=== PATIENT | male | born 1965 | race Caucasian/White ===

== ENCOUNTER 2016-08-05 12:14 | Inpatient (IN) | payer OTHER ==
[~2016-08-05] VITALS: Ht 172.7 cm; Wt 83.0 kg
[~2016-08-05 12:14] MED LIST: FNTTP50 TD; GABA-112 PO; INSPMPHMLG; MESA1.2T PO; METO-157 PO; OMEP20CA9 PO; ONDA4TAB4 PO; OXYC-57 PO; SENN-104 PO; VALS40TA2 PO
[2016-08-05] MEDS ORDERED: HYDR8TAB29 PO (16:02)
[2016-08-05 16:15] VITALS: BMI 27.0
[2016-08-05] MEDS ORDERED: HYDROmorphone INJ 1 MG/ML SYR IV PRN (16:15)
[2016-08-05] MEDS ORDERED: GLUCOSE 10 TABS/TUBE PO PRN (16:15)
[2016-08-05] MEDS ORDERED: GLUCOSE 40% GEL 15 GM TUBE PO PRN (16:15)
[2016-08-05] MEDS ORDERED: GLUCAGON FOR INJ 1 MG VIAL SQ PRN (16:15)
[2016-08-05] MEDS ORDERED: DEXTROSE 50% 50 ML SYR IV PRN (16:15)
[2016-08-05 17:08] LABS: ALB/GLOB RATIO 0.8 (0.9-2); BUN/CREATININE RATIO 6.6 (10-20); CALCIUM 7.7 mg/dl (8.5-10.1); CREATININE 2.6 mg/dl (0.60-1.40); PHOSPHORUS 2.6 mg/dl (2.5-4.9); POTASSIUM 4.3 mmol/L (3.5-5.1)
[2016-08-05 17:13] LABS: HEMATOCRIT 25.8 % (42-52); MEAN CELL VOLUME 79.1 fL (80-100); MEAN CORPUSCULAR HEMOGLOBIN 28.2 pg (25-34); MEAN CORPUSCULAR HGB CONC 35.7 g/dl (32-36); MEAN PLATELET VOLUME 9.2 fL (7.4-10.4); PLATELET COUNT 99 K/uL (130-400); RED BLOOD COUNT 3.26 M/uL (4.7-6.1); WHITE BLOOD COUNT 1.91 K/uL (4.8-10.8)
[2016-08-05 17:14] LABS: BASO % 0.5 %; BASO ABS # 0.01 K/uL (0-0.2); COMPLETE YES; EOS % 3.1 %; LYMPH ABS # 1.05 K/uL (1.2-3.4); MONO % 8.9 %; NEUT % 32.5 %
[2016-08-05 17:15] LABS: LARGE PLATELETS 1+; PLT ESTIMATE DECREASED; TOXIC GRANULATION 1+
--- NOTE | 2016-08-05 17:19 | History and Physical ---
History & Physical Date & Time of Service: Aug 05, 2016 at 16:35 Chief Complaint: Intractable Nausea And Vomiting; Ivan Primary Care Physician: Bran Burgess M.D. History of Present Illness Source: patient This is a 50 y/o male with PMHx of Lung CA currently undergoing chemotherapy, Insulin-Dependent DM 2, diabetic polyneuropathy, gastroparesis s/p gastric stimulator, HTN and other problems as outlined below who presents from [facility] with intractable N/V for 1 week. Pt reports that one week ago he developed intractable N/V shortly after receiving his 2nd round of chemo (07/27). He was admitted to [facility] on 07/28 for his sxs and has been treated with scheduled doses of Zofran and Phenergan. Clinically, sxs have improved over the past week and patient reports only one episode of vomiting today however labs revealed a progressively worsening pancytopenia and increasing creatinine. Pt was diagnosed with Lung CA in Jan 2016. He underwent L sided lobectomy @ [facility] in May 2016. Pt is currently undergoing chemotherapy with Cisplatin /Pemetrexed. The plan is to complete 4 rounds of chemo. He follows with oncology , Dr. Amanda. Pt has a history of gastroparesis with gastric stimulator however he states that these sxs are more severe than his usual gastroparesis sxs. He experienced similar sxs after his first round of chemo and was admitted to [facility] at that time. Patient is also complaining of severe pain. He describes the pain as severe sharp/shooting pain that extends from his toes to his neck. Patient has a history of chronic pain secondary to diabetic neuropathy. He is on fentanyl patch and Dilaudid at home. He follows with pain mgmt. Pt denies fever/chills, diaphoresis, chest pain, palpitations, SOB, wheezing, bowel or bladder issues, LE edema, lightheadedness/dizziness. Past Medical/Surgical History Medical Problems: (1) Diabetes mellitus, type II Status: Chronic (2) Diabetic polyneuropathy Status: Chronic (3) Gastroparesis Permanent Comment: s/p gastric stimulator Status: Chronic (4) HTN (hypertension) Status: Chronic (5) Lung cancer Permanent Comment: dx 01/2016; s/p L side lobectomy; currently undergoing chemo Status: Chronic Surgical Problems: (1) History of cholecystectomy Status: Resolved (2) History of tonsillectomy and adenoidectomy Status: Resolved (3) Hx of total knee arthroplasty Status: Resolved (4) S/P lobectomy of lung Permanent Comment: La carrera @ [facility] [place] 05/25/16 Status: Resolved Social History Smoking Status: Former Smoker (2 pack year history) Smokeless Tobacco Use: Yes (1 can every 3 days since age 8 ) Drug Use: none Marital Status: Housing status: lives with significant other Multi-Drug Resistant Organisms History of MDRO: No Allergies Coded Allergies: BEE STING (Verified Allergy, Mild, SWELLING AT SITE, SOB, 04/16/13) Penicillins (Verified Allergy, Unknown, "SINCE ", 04/16/13) Home Medications Scheduled Acetaminophen (Tylenol), 2 TAB PO TID Aspirin (Aspirin Ec), 81 MG PO QAM Dexamethasone (Decadron), 4 TAB PO BID Epinephrine (Epipen), 0.3 MG IM UD Fentanyl (Duragesic), 100 MCG TD Q48hr Gabapentin (Neurontin), 600 MG PO TID Insulin Glargine (Lantus), 25 SC QPM Multiple Vitamin (Multivitamins), 1 TAB PO QAM Promethazine Hcl (Phenergan), 2 TABS PO Q4H Scheduled PRN Hydromorphone Hcl (Dilaudid), 1 TAB PO TID PRN for Pain Ondansetron Tab (Zofran), 8 MG PO Q8 PRN for Nausea Miscellaneous Medications Insulin Human Lispro (Humalog) Review of Systems Constitutional: + fatigue, + weakness, No chills, No fever, No sweats Eyes: No worsening of vision ENT: No hearing loss Respiratory: No cough, No shortness of breath Cardiovascular: No chest pain, No claudication, No edema Abdomen: + nausea, + pain, + vomiting, No GI bleeding, No constipation, No diarrhea Musculoskeletal: No calf pain, No swelling Genitourinary - Male: No dysuria Neurologic: + weakness Psychiatric: No depression symptoms Endocrine: + fatigue Hematologic / Lymphatic: No abnormal bleeding/bruising Integumentary: No new/changing skin lesions Physical Exam General Appearance: WD/WN, no apparent distress, + pertinent finding (Pt is sitting on edge of bed with at bedside) Head: normocephalic, atraumatic Eyes: normal inspection ENT: hearing grossly normal Neck: supple Respiratory/Chest: chest non-tender, lungs clear, normal breath sounds, no respiratory distress Cardiovascular: regular rate, rhythm, no edema, no murmur Abdomen/GI: normal bowel sounds, non tender, soft Back: normal inspection Extremities/Musculoskelatal: normal inspection, no calf tenderness, no pedal edema Neurologic/Psych: alert, normal mood/affect, oriented x 3 Skin: normal color, warm/dry Diagnostics Laboratory Results Results Past 24 Hours Test 08/05/16 16:12 Range/Units Impression Assessment and Plan INTRACTABLE N/V SECONDARY TO CHEMOTHERAPY H/O GASTROPARESIS S/P GASTRIC STIMULATOR -pt is presented as a transfer from [facility] with chemo-induced intractable N/V; last chemo 07/26 -vitals are stable -obtain CBC, CMP, Mag, Phos -EKG and CXR per routine -start IVF, Phenergan and Emend -consult GI, Dr. Chaves -monitor PANCYTOPENIA -likely chemo-induced -avoid pharmacologic anticoagulation secondary to plt count 99 -neutropenic precautions IVAN -creatinine elevated at 2.6 (baseline 1.2-1.5) -start IVF -monitor with daily prp and avoid nephrotoxic agents when able HYPOMAGNESIA -Mag 1.0; replete -monitor daily DIABETIC POLYNEUROPATHY -cont gabapentin, fentanyl patch and IV Dilaudid PRN -consult pain mgmt LUNG CA S/P L SIDED LOBECTOMY -lobectomy 05/25/16 @ [facility] -currently undergoing chemo with Cisplatin/ pemetrexed (last chemo 07/26) -follows with oncology, Dr. Amanda INSULIN-DEPENDENT DM 2 -A1C 13.2 11/2015; recheck in AM -hold Lantus and NovoLog -start ISS -monitor BSG AC HS HTN -no antihypertensive medications DVT PROPHYLAXIS -SCDs only in setting of thrombocytopenia monitor Plt CODE STATUS -FULL CODE status DISPO Pt seen in collaboration with Dr. Car. Please see his addendum for further details. Thanks! -of note: patient will be followed by Dr. Saenz starting tomorrow AM. ATTENDING ADDENDUM care coordinated with CHARLI Mcfarland please refer to her notes for full details, I agree with her notes called by RN as patient was lethargic, while reviewing his chart, code purple called per RN, patient was noted to be progressively drowsy after receiving Emend, Phenergan, Dilaudid he was then found to be "slumped on the bed", snoring, pulse ox 50%, code purple called when i arrived, patient was awake but drowsy, oriented x 3, answering questions appropriately easily drifts back to sleep denies headache, nausea, chest pain, dyspnea, cough, or pain states he just feels tired,"trying to catch up" on sleep no other symptoms VS noted and reviewed oriented x 3 drowsy, not in distress, speaks in sentences with no effort nor accessory muscle use normal rate, regular rhythm, no murmurs clear breath sounds bilaterally non distended, soft, nontender no bipedal edema, erythema, warmth no neuro deficits wbc 1.2 Plt 99 crea 2.6 CXR: possible right lower lobe atelectasis vs. inflammation CT head: no acute process ABG: ph 7.45, co2 45 ASSESSMENT/PLAN> 50 year old male with Lung CA s/p Lobectomy 05/2016, on Chemo, Chronic Pain Secondary to Neuropathy, transferred from [facility] for intractable nausea/vomiting. INTRACTABLE NAUSEA/VOMITING likely from Chemotherapy history of Gastroparesis, Chronic Narcotic use for Neuropathy was on scheduled Phenergan, Zofran while in [place] with minimal relief as per family trial of Emend GI consulted ALTERED MENTAL STATUS HYPOXIA likely Hypoventilation likely from Narcotic Use in the setting of Acute Renal Failure on CKD 3 ABG, CT head unrevealing CXR questionable right lower lobe pneumonia, repeat CXR 2 views when able - did not give Narcan as patient has been on narcotics for years on PO Dilaudid at home, IV Dilaudid and Fentanyl patch while at [place] HOLD Fentanyl patch, IV Dilaudid, any narcotics tonight monitor in PCU ACUTE RENAL FAILURE ON CKD 3 likely Pre renal from Poor oral intake, Emesis hold narcotics for now renally dose medications - IV fluids monitor crea PANCYTOPENIA - from Chemotherapy - no signs of bleeding, infection at this time - Dr. Amanda consulted Neutropenic precautions other diagnoses and plan of care as per CHARLI Mcfarland's notes Antonino Car MD Advanced Directives Existing Living Will: No Existing Power of Automotive Internet Sales Manager: No VTE Prophylaxis VTE Risk Assessment Done? Y/N: Yes Risk Level: High
[2016-08-05 17:21] LABS: PROTHROMBIN TIME (PATIENT) 10.5 SECONDS (9.0-12.0)
[2016-08-05] MEDS ORDERED: FOSAPREPITANT DIMEGLUMINE INJ 115 MG in SODIUM CHLORIDE 0.9% 100ML 111.2 ML IV ONE (17:30)
[2016-08-05] MEDS: SODIUM CHLORIDE 0.9% 1000ML 1,000 ML IV SCH (17:44)
[2016-08-05] MEDS ORDERED: MAGNESIUM SULFATE 1GM / D5W 1 GM in PREMIXED IN D5W 100 ML IV SCH (17:45)
[2016-08-05] MEDS ORDERED: PROMETHAZINE HCL INJ 25 MG in SODIUM CHLORIDE 0.9% 50ML 50 ML IV SCH (18:00)
[2016-08-05] MEDS ORDERED: INSULIN ASPART 100 UNITS/ML 3 ML PEN SC ONE (18:15)
[2016-08-05 19:12] VITALS: BP 148/88; PULSE 95; TEMP 36.3; O2SAT 92
[2016-08-05 19:56] LABS: ARTERIAL BLD GAS O2 SATURATION 99.4 % (90-95); ARTERIAL BLOOD GAS BASE EXCESS 5.8 mEq/L (-9-1.8); ARTERIAL BLOOD GAS HCO3 30 mmol/L (19-24); ARTERIAL BLOOD GAS PO2 323 mm/Hg (80-95); ARTERIAL BLOOD GAS pH 7.45 (7.35-7.45)
[2016-08-05 19:57] LABS: ALLEN TEST POS (POS); O2 ADMINISTRATION 15 L
[2016-08-05] MEDS ORDERED: GABAPENTIN 600 MG TAB PO SCH (20:00)
--- NOTE | 2016-08-05 20:08 | DIAGNOSTIC IMAGING REPORT ---
CHEST ONE VIEW PORTABLE CLINICAL HISTORY: hypoxia COMPARISON STUDY: No previous studies for comparison. FINDINGS: The heart is normal in size given the AP technique. There is mild central vascular prominence without evidence of overt edema. There are increased markings the right medial lung base, likely atelectatic although an inflammatory process could appear similar[ IMPRESSION: 1. Central vascular prominence without evidence of overt edema 2. Increased markings at the right medial lung base likely atelectatic although an inflammatory process could appear similar Electronically signed by: Bruce Salamanca M.D. 08/05/2016 8:07 PM Dictated Date/Time: 08/05/2016 8:06 PM
[2016-08-05 20:24] LABS: BUN/CREATININE RATIO 6.9 (10-20); CALCIUM 7.6 mg/dl (8.5-10.1); CREATININE 2.6 mg/dl (0.60-1.40); MAGNESIUM 1.5 mg/dl (1.8-2.4); POTASSIUM 4.3 mmol/L (3.5-5.1)
--- NOTE | 2016-08-05 20:34 | DIAGNOSTIC IMAGING REPORT ---
CT HEAD WITHOUT CONTRAST (CT) CLINICAL HISTORY: Stroke like symptoms. Hypoxia. COMPARISON STUDY: 08/06/2013 TECHNIQUE: Axial CT of the brain is performed from the vertex to the skull base. IV contrast was not administered for this examination. CT DOSE: 537.48 mGy.cm FINDINGS: No intra or extra-axial mass lesions are visualized. There is no CT evidence of acute cortical infarction. There is no evidence of midline shift. There is no acute hemorrhage. No calvarial fractures are visualized. There is no evidence of pathologic ventricular dilatation. There is a stable small focus of mucosal thickening within the right sphenoid. IMPRESSION: Normal noncontrast head CT for age. Electronically signed by: Bruce Salamanca M.D. 08/05/2016 8:33 PM Dictated Date/Time: 08/05/2016 8:31 PM
[2016-08-05 21:00] VITALS: BP 148/93; PULSE 85; TEMP 36.5; O2SAT 100
[2016-08-05] MEDS: GABAPENTIN 600 MG TAB PO SCH ×2 (21:00→23:09)
[2016-08-05] MEDS: INSULIN ASPART 100 UNITS/ML 3 ML PEN SC SCH (23:13)
[2016-08-05 23:49] VITALS: BP 184/101; PULSE 94; TEMP 36.4; O2SAT 97
[2016-08-06] VITALS (10 sets, daily range): BP systolic 143–179; BP diastolic 82–110; PULSE 82–97; TEMP 36.5–37.1; O2SAT 88–100; Ht 172.7 cm; Wt 83.0 kg
[2016-08-06] MEDS ORDERED: CHECK FENTANYL PATCH PLACEMENT SCH
[2016-08-06] MEDS: PROMETHAZINE HCL INJ 25 MG in SODIUM CHLORIDE 0.9% 50ML 50 ML IV PRN (01:19)
[2016-08-06] MEDS ORDERED: HYDROmorphone INJ 1 MG/ML SYR IV ONE (01:27)
[2016-08-06] MEDS ORDERED: FENTANYL 100 MCG/HR TDSY TD SCH ×2 (01:30→13:00)
[2016-08-06] MEDS: SODIUM CHLORIDE 0.9% 1000ML 1,000 ML IV SCH ×3 (02:09→17:11)
[2016-08-06] MEDS: INSULIN ASPART 100 UNITS/ML 3 ML PEN SC SCH ×4 (07:00→21:31)
[2016-08-06 07:21] LABS: HEMATOCRIT 23.7 % (42-52); MEAN CELL VOLUME 81.4 fL (80-100); MEAN CORPUSCULAR HEMOGLOBIN 28.5 pg (25-34); RED BLOOD COUNT 2.91 M/uL (4.7-6.1); WHITE BLOOD COUNT 1.98 K/uL (4.8-10.8)
[2016-08-06 07:27] LABS: MEAN PLATELET VOLUME 9.5 fL (7.4-10.4); PLATELET COUNT 86 K/uL (130-400)
[2016-08-06 07:51] LABS: ESTIMATED AVERAGE GLUCOSE 252 mg/dl; HA1C FLAG Normal (Normal)
[2016-08-06 07:55] LABS: CALCIUM 7.6 mg/dl (8.5-10.1); CREATININE 2.3 mg/dl (0.60-1.40); MAGNESIUM 1.4 mg/dl (1.8-2.4)
[2016-08-06 07:56] LABS: PHOSPHORUS 3.2 mg/dl (2.5-4.9)
[2016-08-06] MEDS: CHECK FENTANYL PATCH PLACEMENT SCH ×2 (08:00→16:00)
[2016-08-06] MEDS ORDERED: ASPIRIN 81 MG ECTAB PO SCH (08:00)
--- NOTE | 2016-08-06 08:23 | Gastrointestinal Consultation ---
Gastrointestinal Consultation Date of Consultation: Aug 06, 2016 Consulting Physician: Anastacio Reason for Consultation: N/V, gastroparesis History of Present Illness Patient is a 50 year old male w/ PMH significant for lung CA (round 2/ last dose of Cisplatin/Pemetrexed on 07/27) DMT2 w/ polyneuropathy, HTN, gastroparesis (s/p gastric stimulator) and chronic pain who is a transfer from [facility] for ongoing management, GI is consulted for N/V and gastroparesis. Pt was seen and examined this morning. He has been getting Zofran and Phenergan on a timed schedule for the past week since he has been in [place]. This has been controlling his nausea and vomiting OK. Last episode of vomiting was yesterday. Nausea persists and increases when his pain increases. Currently with head to toe pain 10/10. Nausea has been acutely worse today related to d/c of fentanyl patch. Reports this is different than nausea and vomiting secondary to his gastroparesis. First dose of Emend used yesterday , feels as if his nausea is better controlled with this. Main concern today is his pain and his exhaustion. Is not able to get any sleep because of his pain. Has used Reglan in the past but has not needed it since he had a stimulator places. Is moving his bowels without any concern. Denies any abdominal pain, black/bloody stools or emesis. EGD 01/26/15: LA Grade B reflux esophagitis. Gastritis. Normal examined duodenum. EGD 11/24/14: LA Grade C reflux esophagitis. A large amount of residue in the stomach.No specimens collected. EGD 06/17/13: Normal upper third of esophagus and middle third of esophagus. LA Grade A reflux esophagitis. Normal cardia, gastric fundus, gastric body and incisura. Gastritis. Normal duodenal bulb. Normal 2nd part of the duodenum. EUS 06/17/13: Normal ampulla. 4 mm common bile duct. Multiple stones and sludge was visualized endosonographically in the gallbladder.Normal appearing liver.Normal appearing pancreas. Endosonographic images of the left adrenal gland were unremarkable. EGD 04/21/13: esophagitis Colon 04/22/13: stool in colon despite two day prep, 2 polyps, otherwise unremarkable Social History Smoking Status: Former Smoker (2 pack year history) Drug Use: none Marital Status: Allergies Coded Allergies: BEE STING (Verified Allergy, Mild, SWELLING AT SITE, SOB, 04/16/13) Penicillins (Verified Allergy, Unknown, "SINCE ", 04/16/13) Current Medications Home Meds and Scripts Medications Dose Route/Sig Max Daily Dose Days Date Category Dose Instructions Decadron (Dexamethasone) 4 Mg Tab 4 Tab PO BID 2 08/05/16 Reported Only on day of and day after chemo Neurontin (Gabapentin) 300 Mg Cap 600 Mg PO TID 08/05/16 Reported Aspirin Ec (Aspirin) 81 Mg Tab 81 Mg PO QAM 08/05/16 Reported Lantus (Insulin Glargine) 100 Unit/Ml Inj 25 SC QPM 08/05/16 Reported Dilaudid (Hydromorphone Hcl) 8 Mg Tab 1 Tab PO TID PRN 30 08/05/16 Reported Tylenol (Acetaminophen) 500 Mg Tab 2 Tab PO TID 2 08/05/16 Reported Phenergan (Promethazine Hcl) 12.5 Mg Tab 2 Tabs PO Q4H 7 08/05/16 Reported Humalog (Insulin Human Lispro) 1 Ea Inj 08/05/16 Reported 1 unit for every 10 greater than 120 Epipen (Epinephrine) 0.3 Mg/0.3 Ml Inj 0.3 Mg IM UD 04/16/13 Reported Multivitamins (Multiple Vitamin) 1 Cap Cap 1 Tab PO QAM 04/16/13 Reported Duragesic (Fentanyl) 50 Mcg Tdsy 100 Mcg TD Q48HR 04/16/13 Reported LAST PLACED ON 08/04/16 at 1300 Zofran (Ondansetron HCl) 4 Mg Tab 8 Mg PO Q8 PRN 04/16/13 Reported Review of Systems Constitutional: No chills, No fever Respiratory: No shortness of breath Cardiac: No chest pain Abdomen: + nausea, No GI bleeding, No constipation, No diarrhea, No pain, No vomiting Physical Exam Date Time Temp Pulse Resp B/P Pulse Ox O2 Delivery O2 Flow Rate FiO2 08/06/16 07:50 100 Nasal Cannula 3.0 08/06/16 07:45 36.6 83 16 150/82 88 Nasal Cannula 3.0 08/06/16 04:00 Nasal Cannula 2.0 08/06/16 03:29 36.5 82 18 143/87 100 Nasal Cannula 2.0 08/05/16 23:59 Nasal Cannula 2.0 08/05/16 23:49 36.4 94 20 184/101 97 Nasal Cannula 5.0 08/05/16 21:00 36.5 85 20 148/93 100 Mask 0.0 08/05/16 20:00 Non-Rebreather 15.0 08/05/16 19:12 36.3 95 20 148/88 92 Room Air General Appearance: + moderate distress (patient appears very uncomfortable in bed, occasional groans of pain with any body movement) Eyes: PERRL ENT: hearing grossly normal Neck: supple, trachea midline Respiratory/Chest: lungs clear, no respiratory distress, no accessory muscle use Cardiovascular: regular rate, rhythm, no gallop, no JVD Abdomen: normal bowel sounds, soft, no organomegaly, no pulsatile mass Neurologic/Psych: alert, normal mood/affect, oriented x 3 Skin: normal color, no jaundice Laboratory Results Last 24 Hours Test 08/05/16 16:31 08/05/16 16:40 08/05/16 19:45 08/05/16 19:46 Bedside Glucose 158 mg/dl 195 mg/dl White Blood Count 1.91 K/uL Red Blood Count 3.26 M/uL Hemoglobin 9.2 g/dL Hematocrit 25.8 % Mean Corpuscular Volume 79.1 fL Mean Corpuscular Hemoglobin 28.2 pg Mean Corpuscular Hemoglobin Concent 35.7 g/dl Platelet Count 99 K/uL Mean Platelet Volume 9.2 fL Neutrophils (%) (Auto) 32.5 % Lymphocytes (%) (Auto) 55.0 % Monocytes (%) (Auto) 8.9 % Eosinophils (%) (Auto) 3.1 % Basophils (%) (Auto) 0.5 % Neutrophils # (Auto) 0.62 K/uL Lymphocytes # (Auto) 1.05 K/uL Monocytes # (Auto) 0.17 K/uL Eosinophils # (Auto) 0.06 K/uL Basophils # (Auto) 0.01 K/uL RDW Standard Deviation 40.3 fL RDW Coefficient of Variation 13.9 % Immature Granulocyte % (Auto) 0.0 % Immature Granulocyte # (Auto) 0.00 K/uL Toxic Granulation 1+ Platelet Estimate DECREASED Large Platelets 1+ Prothrombin Time 10.5 SECONDS Prothromb Time International Ratio 1.0 Activated Partial Thromboplast Time 26.6 SECONDS Partial Thromboplastin Ratio 1.0 Sodium Level 136 mmol/L 137 mmol/L Potassium Level 4.3 mmol/L 4.3 mmol/L Chloride Level 98 mmol/L 100 mmol/L Carbon Dioxide Level 32 mmol/L 30 mmol/L Anion Gap 6.0 mmol/L 7.0 mmol/L Blood Urea Nitrogen 17 mg/dl 18 mg/dl Creatinine 2.60 mg/dl 2.60 mg/dl Est Creatinine Clear Calc Drug Dose 32.9 ml/min 32.9 ml/min Estimated GFR () 31.9 31.9 Estimated GFR (Non- 27.5 27.5 BUN/Creatinine Ratio 6.6 6.9 Random Glucose 162 mg/dl 193 mg/dl Calcium Level 7.7 mg/dl 7.6 mg/dl Phosphorus Level 2.6 mg/dl Magnesium Level 1.0 mg/dl 1.5 mg/dl Total Bilirubin 0.2 mg/dl Aspartate Amino Transf (AST/SGOT) 18 U/L Alanine Aminotransferase (ALT/SGPT) 14 U/L Alkaline Phosphatase 81 U/L Total Protein 6.8 gm/dl Albumin 3.1 gm/dl Globulin 3.7 gm/dl Albumin/Globulin Ratio 0.8 Arterial Blood pH 7.45 Arterial Blood Partial Pressure CO2 45 mmHg Arterial Blood Partial Pressure O2 323 mm/Hg Arterial Blood HCO3 30 mmol/L Arterial Blood Oxygen Saturation 99.4 % Arterial Blood Base Excess 5.8 mEq/L Arterial Blood Gas Delivery 15 L Antonino Test POS Test 08/06/16 06:18 08/06/16 06:48 Bedside Glucose 137 mg/dl White Blood Count 1.98 K/uL Red Blood Count 2.91 M/uL Hemoglobin 8.3 g/dL Hematocrit 23.7 % Mean Corpuscular Volume 81.4 fL Mean Corpuscular Hemoglobin 28.5 pg Mean Corpuscular Hemoglobin Concent 35.0 g/dl RDW Standard Deviation 42.0 fL RDW Coefficient of Variation 14.0 % Platelet Count 86 K/uL Mean Platelet Volume 9.5 fL Sodium Level 139 mmol/L Potassium Level 4.0 mmol/L Chloride Level 101 mmol/L Carbon Dioxide Level 32 mmol/L Anion Gap 6.0 mmol/L Blood Urea Nitrogen 16 mg/dl Creatinine 2.30 mg/dl Est Creatinine Clear Calc Drug Dose 40.2 ml/min Estimated GFR () 37.0 Estimated GFR (Non- 31.9 BUN/Creatinine Ratio 7.0 Random Glucose 135 mg/dl Estimated Average Glucose 252 mg/dl Hemoglobin A1c 10.4 % Calcium Level 7.6 mg/dl Phosphorus Level 3.2 mg/dl Magnesium Level 1.4 mg/dl Impression Patient is a 50 year old male with persistent nausea and vomiting following chemotherapy on 07/27 (Cisplatin/Pemetrexed). No coffee ground emesis, or hematemesis. Feels well managed on Zofran, Phenergan and emend. N/V likely secondary to chemotherapy. Plan IVF for hydration Pain management Agree with trial of emend Continue Zofran and Phenergan Pt would not like to try Reglan. Advise patient has emend for upcoming chemotherapy dates. 125 mg PO on day 1 80 mg PO day 2 and day 3 GI to sign off. Please call with any questions. I saw and evaluated the patient. He has a history of gastroparesis s/p Gastric pacemaker and was transferred due to persistent nausea post- chemotherapy. After a dose of Emend he notes feeling better and tolerated PO today. PE: nad, no scleral icterus Impression: patient with gastropersis presenting with n/v likely related to chemotherapy. Recomendations May give emend if needed again during hospital stay Would suggest Emend PO as OP with chemotherapy: 125 mg prior to chemotherapy on day 1, followed by 80 mg once daily on days 2 and 3 (in combination with a 5-HT3 antagonist antiemetic on day 1 and dexamethasone on days 1 to 4 or days 1 to 3) Please call with questions (will sign off)
[2016-08-06] MEDS: HYDROmorphone INJ 1 MG/ML SYR IV PRN ×6 (08:41→23:23)
[2016-08-06] MEDS: DOCUSATE SODIUM/SENNA 50/8.6MG TAB PO SCH (08:43)
[2016-08-06] MEDS: MULTIVITAMIN TAB PO SCH (08:43)
[2016-08-06] MEDS: ONDANSETRON INJ 2 MG/ML 2 ML VIAL IV PRN (08:58)
[2016-08-06] MEDS: GABAPENTIN 600 MG TAB PO SCH ×3 (10:21→21:26)
[2016-08-06] MEDS: MAGNESIUM SULFATE 1GM / D5W 1 GM in PREMIXED IN D5W 100 ML IV SCH ×3 (10:22→13:31)
[2016-08-06] MEDS: MAGNESIUM CHLORIDE 64MG DELAYED REL TAB PO SCH ×2 (10:22→21:27)
--- NOTE | 2016-08-06 11:59 | CONSULTATION REPORT ---
DATE OF CONSULTATION: 08/06/2016 INPATIENT CONSULTATION REPORT Plan of care discussed with Dr. Idalia Hernandez. CHIEF COMPLAINT: Intractable nausea and vomiting and intractable pain. HISTORY OF PRESENT ILLNESS: Mr. Pat is a 50-year-old white male with a past medical history of lung cancer who was transferred from [facility] yesterday for intractable nausea and vomiting over the past 1 week. The patient started his chemotherapy approximately 2 weeks ago, directed at his lung cancer with cisplatin/ pemetrexed. The patient reports a chronic history of pain affecting his entire body from his neck to his toes, which has previously been diagnosed with a polyneuropathy in the setting of chronic diabetes mellitus of greater than 17 years. There is evidence of poorly controlled diabetes mellitus, upon review of his medical record with a hemoglobin A1c of greater than 13 in 2016. He reported prior history of implantation of an intrathecal pump by Dr. Lott in [facility] which was subsequently removed due to an infection. He reports this occurred approximately 3 years ago. The patient has most recently been followed by pain clinic in the [facility] on fentanyl 75 mcg q. 48 hours as well as hydromorphone for breakthrough pain. The patient reported an evaluation at [facility] in [place] after a left-sided lobectomy in May lead to titration of his fentanyl patch to 100 mcg dosing, which he felt was more efficacious at pain control. His pain doctor apparently disagreed and reverted him back to his chronic 75 mcg dosing, prior to this admission. The patient indicates that his pain is significant at this time as all his analgesic regimen was discontinued last evening during this inpatient admission due to sedation and poor responsiveness and a pulse ox of 50%. He denies any obvious evidence of withdrawal at this time, specifically denying diarrhea, anxiety or excessive sweating. Vital signs have been relatively stable over the past 8 hours as well. The patient describes the pain as burning and stabbing in characteristic involving his entire trunk, upper extremities and lower extremities in nondermatomal patterns. He has no further constitutional complaints at this time. PAST MEDICAL HISTORY: 1. Diabetes mellitus - type 2. 2. Diabetic polyneuropathy. 3. Chronic pain secondary to above. 4. Chronic opiate dependency. 5. History of gastroparesis with implantation of his gastric stimulator. 6. Hypertension. 7. Lung cancer status post left-sided lobectomy, currently undergoing chemotherapy. PAST SURGICAL HISTORY: 1. Cholecystectomy. 2. Tonsillectomy. 3. Adenoidectomy. 4. TKA. 5. Status post left-sided lobectomy - 05/25/2016. 6. History of intrathecal pump implantation and explantation. FAMILY HISTORY: Noncontributory. WORK HISTORY: The patient is disabled. SOCIAL HISTORY: The patient is , currently living with significant other. He is a former smoker, has a 2-pack-year history. He does continue to utilize 1 can of smokeless tobacco every 3 days, which he has been doing since approximately the age of 8. He denies illicit drug use. ALLERGIES: BEE STINGS, PENICILLIN. CURRENT MEDICATIONS: Reviewed extensively in the EMR. REVIEW OF SYSTEMS: The patient denies complaints related to cardiac, pulmonary, GI, , endocrine, neurologic, hepatic, renal, ENT, dermatologic, musculoskeletal as described above in the HPI. PHYSICAL EXAMINATION: VITAL SIGNS: Temperature 36.6 degrees Celsius, pulse 83, respirations 16, BP 150/82, pulse oximetry 88% on 3 liters of oxygen via nasal cannula. GENERAL: Mr. Alfonso buckner is sitting quietly in exam room, intermittently moaning secondary to pain complaint. Speech and thought process are appropriate. Mood and affect are flat. Cognition is intact. EXTREMITIES: The patient reports lack of sensation to sharp and dull in his entire body including his upper extremities, his trunk as well as his lower extremities. He denies dysesthesias, hyperesthesia, allodynia, or hyperpathic response to palpation. Range of motion is without limitation of his extremities and strength appears to be 5/5 and equal distally. BACK AND SPINE: He has well-healed midline surgical incision in the thoracolumbar junction at the site of spinal cord stimulator implantation. He also has well-healed surgical incision in the left posterolateral chest wall status post his lobectomy. NEUROLOGIC: Cranial nerves were grossly intact. Ambulatory function was not witnessed. ASSESSMENT: 1. Chronic pain secondary to diabetic polyneuropathy. 2. Intractable nausea/vomiting secondary to chemotherapy. 3. History of lung cancer status post left lobectomy, currently on chemotherapy, last dose 07/26/2016. 4. Pancytopenia. 5. History of gastroparesis, status post gastric stimulator implantation. TREATMENT AND RECOMMENDATIONS: 1. Recommend resuming his chronic opiate therapy with fentanyl 100 mcg, initially at q. 72 hours. 2. Maintain hydromorphone 1 mg q. 2 hours IV p.r.n. for breakthrough pain to assess usage. Could briefly consider utilization of RADIOLOGIC TECHNOLOGY INSTRUCTOR hydromorphone. 3. Alternative options would be to consider a trial of Nucynta for p.r.n. breakthrough pain, which may be more efficacious at his neuropathic pain complaints versus oral hydromorphone. Determination will be made in the next 24 hours. 4. Will resume gabapentin at 600 mg t.i.d. Consider progressing dose. 5. Addition of alternative antineuropathics could be considered in the outpatient setting. 6. We will continue to follow during hospitalization. Thank you for the consultation. MIRTHAD
[2016-08-06] MEDS ORDERED: FENTANYL PATCH REMOVE & WASTE SCH (12:59)
--- NOTE | 2016-08-06 13:18 | Medical Consult ---
Consultation Date of Consultation: Aug 06, 2016. Attending Physician: Antonino Car MD Reason for Consultation: Pancytopenia in setting of treatment of NSCLC History of Present Illness Jeff Hamilton is a 50 year old male who underwent surgery for a left upper lobe lung cancer at [facility], [place], [place] in May 2016. He was then seen in Multidisciplinary Thoracic Oncology Clinic there. Lung nodule was found incidentally on PAT for gastric stimulator for gastroparesis and the following work up proceeded as detailed: CT scan 01/10/2016 revealed two lung nodules in the lingula of the left upper lobe. 01/19/[address]: Low level metabolic activity within two lingular nodules; interval development of right upper lobe ground-glass opacities; low level activity consistent with infectious/inflammatory process Follow up CT scan from 04/09/2016: little to no change in the size of the two lingular lung nodules; largest is 1.4 cm ; smaller is 1 cm ; resolution of ground glass opacities. He underwent a robotic SHAWN lobectomy on 05/25/2016. Final pathology: NSCLC SHAWN - - adenocarcinoma, poorly differentiated, TNM pT1b, pN2, M0. Tumor 2.2 cm, 3/8 LNs + mets. Dr. Amanda recommended 4 cycles of adjuvant chemotherapy with cisplatin/ pemetrexed, sequential RT was not recommended by RO; he completed cycle 2 on . A day after 2nd cycle of chemotherapy, he developed intractable N/V and was admitted to [facility] on 07/28 where was treated with scheduled doses of Zofran and Phenergan. He has improved over the past week. He only had one episode of vomiting yesterday, but labs reveal worsening pancytopenia and increasing creatinine. After admission yesterday, he had an episode of respiratory depression after Emend, Phenergan and Zofran were administered for his symptoms. No Narcan was given; patient's lethargy resolved after withdrawing fentanyl and Dilaudid yesterday. Additional history obtained from patient at bedside. The patient reports yesterday that he received 2 IV 50 milligram doses of fentanyl on his transfer via ambulance from [facility] to [facility]. Since his episode of lethargy a with respiratory depression and oxygen desaturation, he has been able to restart his narcotic regimen. He states that his "generalized" Neuropathy pain of the arms, legs and trunk is typically 3/ 10. since his last chemotherapy, his neuropathy has been 4-6 -8 /10. 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 He reports fatigue ; he did sleep well last evening with the week prior in [facility] only getting "2-3 hours sleep total." He reports very minimal nausea and has not had vomiting since yesterday around 10 a.m.. His bowels remain regular and he has not had hematochezia or melena. He denies any dysuria or hematuria. He has not had consistent headache or dizziness. Social History Smoking Status: Former Smoker (2 pack year history) Smokeless Tobacco Use: Yes (1 can every 3 days since age 8 ) Drug Use: none Marital Status: Allergies Coded Allergies: BEE STING (Verified Allergy, Mild, SWELLING AT SITE, SOB, 04/16/13) Penicillins (Verified Allergy, Unknown, "SINCE ", 04/16/13) Current Inpatient Medications Current Inpatient Medications Medications (Trade) Dose Ordered Sig/Cal Route Start Time Stop Time Status Last Admin Dose Admin Acetaminophen (Tylenol Tab) 650 mg Q4H PRN PO 08/05/16 16:15 09/04/16 16:14 Ondansetron HCl (Zofran Inj) 4 mg Q6H PRN IV 08/05/16 16:15 09/04/16 16:14 Insulin Aspart (novoLOG ASPART) SLIDING SCALE If C... ACHS SC 08/05/16 21:00 09/04/16 20:59 08/05/16 23:13 1 UNITS Glucose (Glucose 40% Gel) 15-30 GRAMS 15 GRAMS... UD PRN PO 08/05/16 16:15 09/04/16 16:14 Glucose (Glucose Chew Tab) 4-8 Tablets 4 Tabl... UD PRN PO 08/05/16 16:15 09/04/16 16:14 Dextrose (Dextrose 50% 50ML Syringe) 25-50ML OF 50% DW IV FOR... UD PRN IV 08/05/16 16:15 09/04/16 16:14 Glucagon (Glucagon Inj) 1 mg UD PRN SQ 08/05/16 16:15 09/04/16 16:14 Multivitamins (Multivitamin Tab) 1 tab QAM PO 08/06/16 08:00 09/05/16 07:59 Senna/Docusate Sodium 1 tab 1 tab QAM PO 08/06/16 08:00 09/05/16 07:59 Sodium Chloride 1,000 ml @ 125 mls/hr Q8H IV 08/05/16 17:15 09/04/16 17:14 08/06/16 02:09 125 MLS/HR Promethazine HCl/ Sodium Chloride (Phenergan Inj/ Nss 50ml) 51 ml @ 204 mls/hr Q6H PRN IV 08/06/16 00:00 09/05/16 00:00 08/06/16 01:19 204 MLS/HR Gabapentin (Neurontin Tab) 600 mg BID PO 08/05/16 20:00 09/04/16 19:59 08/05/16 21:00 600 MG Fentanyl (Duragesic Patch) 100 mcg Q72H TD 08/06/16 01:30 08/20/16 01:29 Hydromorphone HCl (Dilaudid Inj) 1 mg Q2H PRN IV 08/06/16 01:30 08/20/16 01:29 Miscellaneous (Fentanyl Patch Remove & Waste) 1 ea Q72H N/A 08/09/16 01:29 09/08/16 01:28 Miscellaneous Information (Check Fentanyl Patch Placement) 1 ea QS N/A 08/06/16 08:00 09/05/16 07:59 Review of Systems Constitutional: + fatigue, No chills, No fever Respiratory: No cough, No shortness of breath, No sputum, No wheezing Cardiovascular: + edema, No chest pain Abdomen: + nausea (significantly improved), + vomiting (resolved), No GI bleeding, No constipation, No diarrhea, No pain Genitourinary - Male: No dysuria, No hematuria Neurologic: No vertigo (or headache) Integumentary: No rash Physical Exam Date Time Temp Pulse Resp B/P Pulse Ox O2 Delivery O2 Flow Rate FiO2 08/06/16 07:50 100 Nasal Cannula 3.0 08/06/16 07:45 36.6 83 16 150/82 88 Nasal Cannula 3.0 08/06/16 04:00 Nasal Cannula 2.0 08/06/16 03:29 36.5 82 18 143/87 100 Nasal Cannula 2.0 08/05/16 23:59 Nasal Cannula 2.0 08/05/16 23:49 36.4 94 20 184/101 97 Nasal Cannula 5.0 08/05/16 21:00 36.5 85 20 148/93 100 Mask 0.0 08/05/16 20:00 Non-Rebreather 15.0 08/05/16 19:12 36.3 95 20 148/88 92 Room Air General Appearance: WD/WN, no apparent distress ENT: hearing grossly normal Respiratory/Chest: lungs clear, no respiratory distress, no accessory muscle use Cardiovascular: regular rate, rhythm, + pertinent finding (edema of L UE forearm from leaked saline infusion yesterday- no erythema or tenderness) Abdomen/GI: normal bowel sounds, non tender, soft Extremities/Musculoskelatal: no calf tenderness, no pedal edema Neurologic/Psych: alert, oriented x 3 Skin: warm/dry, no rash Laboratory Results 08/05/16 16:40 Red Blood Count 3.26, Mean Corpuscular Volume 79.1, Mean Corpuscular Hemoglobin 28.2, Mean Corpuscular Hemoglobin Concent 35.7, Mean Platelet Volume 9.2, Neutrophils (%) (Auto) 32.5, Lymphocytes (%) (Auto) 55.0, Monocytes (%) (Auto) 8.9, Eosinophils (%) (Auto) 3.1, Basophils (%) (Auto) 0.5, Neutrophils # (Auto) 0.62, Lymphocytes # (Auto) 1.05, Monocytes # (Auto) 0.17, Eosinophils # (Auto) 0.06, Basophils # (Auto) 0.01 08/06/16 06:48 08/05/16 16:40 08/05/16 19:45 08/06/16 06:48 Test 08/05/16 16:31 08/05/16 16:40 08/05/16 19:45 08/05/16 19:46 Bedside Glucose 158 mg/dl (70-99) 195 mg/dl (70-99) White Blood Count 1.91 K/uL (4.8-10.8) Red Blood Count 3.26 M/uL (4.7-6.1) Hemoglobin 9.2 g/dL (14.0-18.0) Hematocrit 25.8 % (42-52) Mean Corpuscular Volume 79.1 fL (80-100) Mean Corpuscular Hemoglobin 28.2 pg (25-34) Mean Corpuscular Hemoglobin Concent 35.7 g/dl (32-36) Platelet Count 99 K/uL (130-400) Mean Platelet Volume 9.2 fL (7.4-10.4) Neutrophils (%) (Auto) 32.5 % Lymphocytes (%) (Auto) 55.0 % Monocytes (%) (Auto) 8.9 % Eosinophils (%) (Auto) 3.1 % Basophils (%) (Auto) 0.5 % Neutrophils # (Auto) 0.62 K/uL (1.4-6.5) Lymphocytes # (Auto) 1.05 K/uL (1.2-3.4) Monocytes # (Auto) 0.17 K/uL (0.11-0.59) Eosinophils # (Auto) 0.06 K/uL (0-0.5) Basophils # (Auto) 0.01 K/uL (0-0.2) RDW Standard Deviation 40.3 fL (36.4-46.3) RDW Coefficient of Variation 13.9 % (11.5-14.5) Immature Granulocyte % (Auto) 0.0 % Immature Granulocyte # (Auto) 0.00 K/uL (0.00-0.02) Toxic Granulation 1+ Platelet Estimate DECREASED Large Platelets 1+ Prothrombin Time 10.5 SECONDS (9.0-12.0) Prothromb Time International Ratio 1.0 (0.9-1.1) Activated Partial Thromboplast Time 26.6 SECONDS (21.0-31.0) Partial Thromboplastin Ratio 1.0 Anion Gap 6.0 mmol/L (3-11) 7.0 mmol/L (3-11) Est Creatinine Clear Calc Drug Dose 32.9 ml/min 32.9 ml/min Estimated GFR () 31.9 31.9 Estimated GFR (Non- 27.5 27.5 BUN/Creatinine Ratio 6.6 (10-20) 6.9 (10-20) Calcium Level 7.7 mg/dl (8.5-10.1) 7.6 mg/dl (8.5-10.1) Phosphorus Level 2.6 mg/dl (2.5-4.9) Magnesium Level 1.0 mg/dl (1.8-2.4) 1.5 mg/dl (1.8-2.4) Total Bilirubin 0.2 mg/dl (0.2-1) Aspartate Amino Transf (AST/SGOT) 18 U/L (15-37) Alanine Aminotransferase (ALT/SGPT) 14 U/L (12-78) Alkaline Phosphatase 81 U/L (45-117) Total Protein 6.8 gm/dl (6.4-8.2) Albumin 3.1 gm/dl (3.4-5.0) Globulin 3.7 gm/dl (2.5-4.0) Albumin/Globulin Ratio 0.8 (0.9-2) Arterial Blood pH 7.45 (7.35-7.45) Arterial Blood Partial Pressure CO2 45 mmHg (35-46) Arterial Blood Partial Pressure O2 323 mm/Hg (80-95) Arterial Blood HCO3 30 mmol/L (19-24) Arterial Blood Oxygen Saturation 99.4 % (90-95) Arterial Blood Base Excess 5.8 mEq/L (-9-1.8) Arterial Blood Gas Delivery 15 L Antonino Test POS (POS) Test 08/06/16 06:18 08/06/16 06:48 Bedside Glucose 137 mg/dl (70-99) Red Blood Count 2.91 M/uL (4.7-6.1) Mean Corpuscular Volume 81.4 fL (80-100) Mean Corpuscular Hemoglobin 28.5 pg (25-34) Mean Corpuscular Hemoglobin Concent 35.0 g/dl (32-36) RDW Standard Deviation 42.0 fL (36.4-46.3) RDW Coefficient of Variation 14.0 % (11.5-14.5) Mean Platelet Volume 9.5 fL (7.4-10.4) Anion Gap 6.0 mmol/L (3-11) Est Creatinine Clear Calc Drug Dose 40.2 ml/min Estimated GFR () 37.0 Estimated GFR (Non- 31.9 BUN/Creatinine Ratio 7.0 (10-20) Estimated Average Glucose 252 mg/dl Hemoglobin A1c 10.4 % (4.5-5.6) Calcium Level 7.6 mg/dl (8.5-10.1) Phosphorus Level 3.2 mg/dl (2.5-4.9) Magnesium Level 1.4 mg/dl (1.8-2.4) CT head from 08/05/2016: No intra or extra-axial mass lesions. No CT evidence of acute cortical infarction. No acute hemorrhage. No evidence of pathologic ventricular dilatation. Chest x-ray from 08/05/2016: Mild central vascular prominence without evidence of overt edema. Increased markings of the right medial lung base, likely atelectatic although inflammatory process could appear similar. Assessment & Plan 1. Pancytopenia secondary to chemotherapy for Stage III NSCLC, 2nd cycle of cisplatin/pemetrexed administered 07/27/16 * Added on a differential count today as this was not ordered to see if patient may require supportive Neupogen * Patient has not required PRBC or PLT tranfusion, PLT count fairly stable since transfer yesterday * No infectious complications * Check CBCD daily while inpatient 2. Intractable nausea/vomiting likely secondary to chemotherapy, though patient also has significant N/V prior with gastroparesis (requires implanted stimulator ) * For the past 8 days since chemotherapy infusion, was admitted at [facility] from day after chemotherapy, 07/28/16 to yesterday when he was transferred to [facility] for IVAN (patient states he was vomiting up to 20x/day) * GI has recommended Emend with next chemotherapy to be given: 125 mg PO on day 1; 80 mg PO day 2 and day 3 * Patient last vomited yesterday 10 AM, received Phenergan, Zofran and Emend yesterday, nausea minimal at this time 3. Acute kidney injury from dehydration likely * Discussed with patient that cisplatin can have nephrotoxicity, but since IVAN started after days of uncontrolled N/V, would attribute IVAN more to dehydration * Management per hospitalist team- IVF 4. 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 * Discussed with patient that if he proceeds with further adjuvant chemotherapy , would strongly consider changing regimen to carboplatin/pemetrexed Thanks for the consult. Dr. Amanda will be informed his patient is hospitalized on 08/07/16.
[2016-08-06 13:42] LABS: COMPLETE YES; LYMPH ABS # 1.56 K/uL (1.2-3.4)
--- NOTE | 2016-08-06 18:07 | Progress Note ---
Internal Med Progress Note Date of Service: Aug 06, 2016. Provider Documentation: SUBJECTIVE: complains of pain all over denies sob afebrile requests for more pain med OBJECTIVE: Vital Signs-as noted below Exam: General-alert and oriented x 3 ENT-normal hearing Neck-no neck masses Lungs-cta b/l no wheezing no crackles Heart-s1 and s2 heard regular rate and rhythm no murmurs' Abdomen-soft bowel sounds present l no distension Extremities-no edema no erythema Neuro-alert and awake moves extremities Lab data as noted below. ASSESSMENT & PLAN: 50 year old male with Lung CA s/p Lobectomy 05/2016, on Chemo, Chronic Pain Secondary to Neuropathy, transferred from [facility] for intractable nausea/vomiting. INTRACTABLE NAUSEA/VOMITING Most likely from Chemotherapy history of Gastroparesis, Chronic Narcotic use for Neuropathy received emend currently on iv Zofran and Phenergan prn GI consulted ALTERED MENTAL STATUS HYPOXIA likely Hypoventilation likely from Narcotic Use in the setting of Acute Renal Failure on CKD 3 ABG, CT head unrevealing CXR questionable right lower lobe pneumonia, repeat CXR 2 views when able currently stable will close monitor while patient on narcotic pain meds ACUTE RENAL FAILURE ON CKD 3 likely Pre renal from Poor oral intake, Emesis renally dose medications iv fluids presented with CR 2.6 CR2.3 f/u labs in am PANCYTOPENIA From chemotherapy appreciate oncology inputs will f/u cbc with diff in am chronic pain currently on fentanyl patch on gabapentin iv Dilaudid prn appreciate pain management DVT PROPHYLAXIS scds DISPOSITION to be determined Vital Signs: Date Time Temp Pulse Resp B/P Pulse Ox O2 Delivery O2 Flow Rate FiO2 08/06/16 15:45 36.8 88 18 173/99 100 Nasal Cannula 2.0 08/06/16 12:06 36.8 88 14 168/104 100 Nasal Cannula 08/06/16 12:00 100 Room Air 3.0 08/06/16 08:00 100 Room Air 08/06/16 07:50 100 Nasal Cannula 3.0 08/06/16 07:45 36.6 83 16 150/82 88 Nasal Cannula 3.0 08/06/16 04:00 Nasal Cannula 2.0 08/06/16 03:29 36.5 82 18 143/87 100 Nasal Cannula 2.0 08/05/16 23:59 Nasal Cannula 2.0 08/05/16 23:49 36.4 94 20 184/101 97 Nasal Cannula 5.0 08/05/16 21:00 36.5 85 20 148/93 100 Mask 0.0 08/05/16 20:00 Non-Rebreather 15.0 08/05/16 19:12 36.3 95 20 148/88 92 Room Air Lab Results: Results Past 24 Hours Test 08/05/16 19:45 08/05/16 19:46 08/06/16 06:18 08/06/16 06:48 Range/Units Arterial Blood pH 7.45 7.35-7.45 Arterial Blood Partial Pressure CO2 45 35-46 mmHg Arterial Blood Partial Pressure O2 323 80-95 mm/Hg Arterial Blood HCO3 30 19-24 mmol/L Arterial Blood Oxygen Saturation 99.4 90-95 % Arterial Blood Base Excess 5.8 -9-1.8 mEq/L Arterial Blood Gas Delivery 15 L Antonino Test POS POS Sodium Level 137 139 136-145 mmol/L Potassium Level 4.3 4.0 3.5-5.1 mmol/L Chloride Level 100 101 98-107 mmol/L Carbon Dioxide Level 30 32 21-32 mmol/L Anion Gap 7.0 6.0 3-11 mmol/L Blood Urea Nitrogen 18 16 7-18 mg/dl Creatinine 2.60 2.30 0.60-1.40 mg/dl Est Creatinine Clear Calc Drug Dose 32.9 40.2 ml/min Estimated GFR () 31.9 37.0 Estimated GFR (Non- 27.5 31.9 BUN/Creatinine Ratio 6.9 7.0 10-20 Random Glucose 193 135 70-99 mg/dl Calcium Level 7.6 7.6 8.5-10.1 mg/dl Magnesium Level 1.5 1.4 1.8-2.4 mg/dl Bedside Glucose 195 137 70-99 mg/dl White Blood Count 1.98 4.8-10.8 K/uL Red Blood Count 2.91 4.7-6.1 M/uL Hemoglobin 8.3 14.0-18.0 g/dL Hematocrit 23.7 42-52 % Mean Corpuscular Volume 81.4 80-100 fL Mean Corpuscular Hemoglobin 28.5 25-34 pg Mean Corpuscular Hemoglobin Concent 35.0 32-36 g/dl Platelet Count 86 130-400 K/uL Mean Platelet Volume 9.5 7.4-10.4 fL RDW Standard Deviation 42.0 36.4-46.3 fL RDW Coefficient of Variation 14.0 11.5-14.5 % Neutrophils % (Manual) 15.0 % Lymphocytes % (Manual) 79.0 % Monocytes % (Manual) 3.0 % Eosinophils % (Manual) 3.0 % Neutrophils # (Manual) 0.30 1.4-6.5 K/uL Total Absolute Neutrophils 0.30 1.4-6.5 K/uL Lymphocytes # (Manual) 1.56 1.2-3.4 K/uL Total Absolute Lymphocytes 1.56 1.2-3.4 K/uL Monocytes # (Manual) 0.06 0.11-0.59 K/uL Eosinophils # (Manual) 0.06 0-0.5 K/uL Estimated Average Glucose 252 mg/dl Hemoglobin A1c 10.4 4.5-5.6 % Phosphorus Level 3.2 2.5-4.9 mg/dl Test 08/06/16 11:48 08/06/16 16:45 Range/Units Bedside Glucose 163 139 70-99 mg/dl
[2016-08-06] MEDS ORDERED: AMLODIPINE BESYLATE 5 MG TAB PO ONE (20:23)
[2016-08-07] VITALS (8 sets, daily range): BP systolic 138–185; BP diastolic 88–105; PULSE 72–98; TEMP 36.5–36.8; O2SAT 91–100
[2016-08-07] MEDS: HYDROmorphone INJ 1 MG/ML SYR IV PRN ×7 (01:20→19:53)
[2016-08-07] MEDS: ACETAMINOPHEN 325 MG TAB PO PRN (01:22)
[2016-08-07] MEDS: SODIUM CHLORIDE 0.9% 1000ML 1,000 ML IV SCH ×3 (02:09→18:22)
[2016-08-07] MEDS: INSULIN ASPART 100 UNITS/ML 3 ML PEN SC SCH ×4 (07:00→19:58)
[2016-08-07] MEDS: CHECK FENTANYL PATCH PLACEMENT SCH ×4 (08:00→23:41)
[2016-08-07] MEDS ORDERED: AMLODIPINE BESYLATE 5 MG TAB PO SCH (09:00)
[2016-08-07] MEDS: MULTIVITAMIN TAB PO SCH (09:01)
[2016-08-07] MEDS: MAGNESIUM CHLORIDE 64MG DELAYED REL TAB PO SCH ×2 (09:01→20:59)
[2016-08-07] MEDS: DOCUSATE SODIUM/SENNA 50/8.6MG TAB PO SCH (09:03)
[2016-08-07] MEDS: GABAPENTIN 600 MG TAB PO SCH (09:03)
[2016-08-07] MEDS: TAPENTADOL HCL 50 MG TAB PO PRN ×2 (09:54→23:41)
[2016-08-07] MEDS ORDERED: MAGNESIUM SULFATE 1GM / D5W 1 GM in PREMIXED IN D5W 100 ML IV ONE (10:30)
--- NOTE | 2016-08-07 10:32 | PROGRESS NOTE ---
DATE: 08/07/2016 Plan of care discussed with Dr. Idalia Hernandez. SUBJECTIVE: Mr. Hamilton is a 50-year-old male with a past medical history of lung cancer, who was transferred from [facility] for intractable nausea and vomiting. The patient started chemotherapy approximately 2 weeks ago directed at lung cancer with cisplatin and pemetrexed. The patient has chronic history of pain which he indicates his entire body from his neck to his toes of neuropathic nature, which he describes as sharp, shooting, episodic and burning in characteristic. The patient has a prior diagnosis of polyneuropathy in the setting of chronic diabetes mellitus of greater than 17 years' duration. These symptoms have been increased since initiation of his chemotherapy. He has been chronically on fentanyl patch at 75 mcg q. 48 hours which was adjusted to 100 mcg q. 72 hours upon this admission and resumed on 08/06/2016, approximately 24 hours ago. The patient is currently utilizing IV Dilaudid 1 mg q. 2 hours for p.r.n. breakthrough pain. The patient utilized 9 mg of IV Dilaudid over the past 24 hours. The patient indicates that Dilaudid "take the edge off" for approximately 1-2 hours only. His pain remains intermittent without change in location or characteristic from his chronic complaints. The patient also remains on gabapentin which he reports has been without efficacy in the past. He also reports a trial of Lyrica without benefit. He does have prior history of use of intrathecal morphine per his report for approximately 7 years with efficacy. At the time of pump replacement, he developed an infection. The entire system was removed and resumption of intrathecal medications was not entertained again at that time. The patient has no further constitutional complaints at this time. The patient had an episode of respiratory depression during this admission which was felt to be related to polypharmacy with use of IV Dilaudid prior to transfer, use of fentanyl during transfer, and Zofran/Phenergan upon arrival. He has not had recurrence with resumption of his opiate therapies. OBJECTIVE: VITAL SIGNS: Temperature 36.5 degrees Celsius, pulse 91, respirations 16, BP 172/93, pulse oximetry 99 on 2 liters of oxygen via nasal cannula. GENERAL: Mr. Hamilton is sitting up upon entering the room today and is more interactive, in no obvious acute pain. Speech and thought process are appropriate. Cognition is intact. BACK AND SPINE: He has a well-healed midline surgical incision over his thoracolumbar spine at the site of his spinal cord stimulator implantation. He has multiple well-healed surgical incisions on his left posterolateral chest wall status post his lobectomy procedure. MUSCULOSKELETAL: No evidence of dysesthesias, hyperesthesia, allodynia or hyperpathic response. He again reports lack of sensation to sharp and dull touch of his entire trunk and extremities. NEUROLOGIC: Cranial nerves grossly intact. Ambulatory function not witnessed. ASSESSMENT: 1. Chronic pain secondary to diabetic polyneuropathy. 2. Intractable nausea/vomiting - improved, secondary to chemotherapy. 3. History of lung cancer, status post left lobectomy, currently on chemotherapy, last dose 07/26/2016. 4. Pancytopenia. 5. History of gastroparesis, status post gastric stimulator implantation. TREATMENT AND RECOMMENDATIONS: 1. Will maintain fentanyl 100 mcg q. 72 hours at this time. 2. Maintain hydromorphone 1 mg q. 2 hours IV p.r.n. for breakthrough pain. 3. Will initiate Nucynta 50 mg q. 4 h. on a p.r.n. basis for breakthrough pain to assess efficacy. Potential side effects and benefits reviewed. 4. Will discontinue gabapentin and initiate Keppra 500 mg b.i.d. 5. Will continue to follow during hospitalization. MTDD
[2016-08-07] MEDS: FILGRASTIM 300 MCG/ML 1 ML VIAL SQ SCH (10:56)
--- NOTE | 2016-08-07 15:13 | Progress Note ---
Internal Med Progress Note Date of Service: Aug 07, 2016. Provider Documentation: SUBJECTIVE: The patient was seen and examined Complains of pain starts in mid back and spread all over the body Not any better Denies any SOB associated with it OBJECTIVE: Vital Signs-as noted below Exam: General-no distress at rest Eyes-normal ENT-normal Neck-supple Lungs-clear to ausucltate bilaterally Heart-regular,no murmur Abdomen-Benign,no masses ,bowel sound present Extremities-Trace edema bilaterally Neuro-AAox3 Lab data as noted below. ASSESSMENT & PLAN: Chronic Pain From Diabetic Polyneuropathy Complicate dby Ca lung with metastasis Currently on fentanyl patch Appreciate Pain management input Continue on Fentanyl,Nucynta ,Keppra and Dilaudid Gabapentin discontinued INTRACTABLE NAUSEA AND VOMITING likely from Chemotherapy history of Gastroparesis, Chronic Narcotic use for Neuropathy Was on iv Zofran and Phenergan prn GI consulted ,input appreciated Started on Emend and feeling better ALTERED MENTAL STATUS HYPOXIA Hypoventilation likely from Narcotic Use in the setting of Acute Renal Failure on CKD 3 ABG, CT head unrevealing CXR questionable right lower lobe pneumonia, repeat CXR 2 views when able feels better and no more episodes ACUTE RENAL FAILURE ON CKD 3 likely Pre renal from Poor oral intake, Emesis renally dose medications PANCYTOPENIA From chemotherapy Appreciate oncology inputs Counts are improving DVT PROPHYLAXIS scds DISPOSITION to be determined Vital Signs: Date Time Temp Pulse Resp B/P Pulse Ox O2 Delivery O2 Flow Rate FiO2 08/07/16 12:00 Nasal Cannula 08/07/16 11:31 36.6 72 16 150/96 95 08/07/16 08:00 Nasal Cannula 08/07/16 07:47 36.5 91 16 172/93 99 Nasal Cannula 08/07/16 04:00 36.6 91 18 138/88 100 Nasal Cannula 2.0 08/07/16 04:00 Nasal Cannula 2.0 08/07/16 00:00 36.7 92 18 162/92 100 Nasal Cannula 2.0 08/06/16 23:59 Nasal Cannula 2.0 08/06/16 20:17 169/110 08/06/16 20:00 Nasal Cannula 2.0 08/06/16 19:15 37.1 97 20 179/93 98 Nasal Cannula 2.5 08/06/16 16:00 100 Nasal Cannula 3.0 08/06/16 15:45 36.8 88 18 173/99 100 Nasal Cannula 2.0 Lab Results: Results Past 24 Hours Test 08/06/16 16:45 08/06/16 20:18 08/07/16 06:09 08/07/16 11:20 Range/Units Bedside Glucose 139 183 173 185 70-99 mg/dl
[2016-08-07] MEDS: LEVETIRACETAM 500 MG TAB PO SCH (20:50)
[2016-08-07] MEDS ORDERED: AMLODIPINE BESYLATE 5 MG TAB PO ONE (21:00)
[2016-08-08] VITALS (9 sets, daily range): BP systolic 137–184; BP diastolic 80–115; PULSE 92–101; TEMP 36.7–37; O2SAT 92–97
[2016-08-08] MEDS: SODIUM CHLORIDE 0.9% 1000ML 1,000 ML IV SCH ×3 (01:51→18:24)
[2016-08-08] MEDS: HYDROmorphone INJ 1 MG/ML SYR IV PRN ×8 (03:07→22:16)
[2016-08-08] MEDS: TAPENTADOL HCL 50 MG TAB PO PRN ×4 (05:09→20:00)
[2016-08-08] MEDS: MULTIVITAMIN TAB PO SCH (07:38)
[2016-08-08] MEDS: LEVETIRACETAM 500 MG TAB PO SCH ×2 (07:38→20:40)
[2016-08-08] MEDS: DOCUSATE SODIUM/SENNA 50/8.6MG TAB PO SCH (07:38)
[2016-08-08] MEDS: AMLODIPINE BESYLATE 5 MG TAB PO SCH (07:38)
[2016-08-08] MEDS: MAGNESIUM CHLORIDE 64MG DELAYED REL TAB PO SCH ×2 (07:38→20:40)
[2016-08-08] MEDS: FILGRASTIM 300 MCG/ML 1 ML VIAL SQ SCH (07:48)
[2016-08-08] MEDS: INSULIN ASPART 100 UNITS/ML 3 ML PEN SC SCH ×4 (07:48→20:45)
[2016-08-08] MEDS: CHECK FENTANYL PATCH PLACEMENT SCH (07:49)
[2016-08-08] MEDS: FENTANYL PATCH REMOVE & WASTE SCH (07:59)
--- NOTE | 2016-08-08 09:01 | PROGRESS NOTE ---
DATE: 08/08/2016 Plan of care discussed with Dr. Idalia Hernandez. SUBJECTIVE: Mr. Hamilton is a 50-year-old male with a history of intractable pain involving his entire body from his neck to his toes of neuropathic nature, which he describes as sharp, shooting, episodic and burning in characteristic with a prior diagnosis of polyneuropathy in the setting of chronic diabetes mellitus of greater than 17 years' duration. He is reporting increased pain status post recent initiation of chemotherapy for treatment of his lung cancer with cisplatin and pemetrexed. The patient was admitted to our hospital for intractable nausea and vomiting after transfer from [facility]. He was initiated on Nucynta 50 mg q.4h. yesterday, which he reports has been moderately efficacious at diminishing his pain. He has utilized less IV Dilaudid over the past 24 hours with initiation of Nucynta therapy. The patient remains on fentanyl patch 100 mcg q. 72 hours, but was previously utilizing fentanyl prior to admission at q. 48 hours intervals due for breakthrough symptoms on his third day. The patient denies side effects to Nucynta therapy. He is tolerating his current medications without notable side effects. The patient was also transitioned from gabapentin to Keppra yesterday without side effects. The patient has no new neurological or further constitutional complaints at this time. OBJECTIVE: VITAL SIGNS: Temperature 36.9 degrees Celsius, pulse 94, respirations 20, BP 184/115, and pulse oximetry 96% on room air. GENERAL: Mr. Hamilton is sitting up in his exam room, eating his breakfast in no acute distress. Speech and thought process are appropriate. Mood and affect is appropriate. Cognition was intact. NEUROLOGIC: Cranial nerves grossly intact. Ambulatory function was not witnessed. ASSESSMENT: 1. Chronic pain secondary to diabetic polyneuropathy. 2. Chronic opiate dependency. 3. Intractable nausea/vomiting -- improved secondary to chemotherapy. 4. History of lung cancer, status post left lobectomy, currently on chemotherapy, last dose on 07/25/2016. 5. Pancytopenia. 6. History of gastroparesis, status post gastric stimulator implantation. TREATMENT AND RECOMMENDATIONS: 1. Will adjust fentanyl from q. 72 hours to q. 48 hours, which is similar to his outpatient utilization. 2. Will progress Nucynta to 75 mg q.4h. on a p.r.n. basis for breakthrough pain to further assess efficacy. 3. Maintain Keppra at 500 mg b.i.d. 4. Maintain hydromorphone 1 mg q. 2 hours IV p.r.n. for breakthrough pain. MTDD
[2016-08-08] MEDS: FENTANYL 100 MCG/HR TDSY TD SCH (09:22)
[2016-08-08 11:03] LABS: HEMATOCRIT 24.4 % (42-52); MEAN CELL VOLUME 79.7 fL (80-100); MEAN CORPUSCULAR HEMOGLOBIN 28.8 pg (25-34); MEAN CORPUSCULAR HGB CONC 36.1 g/dl (32-36); RED BLOOD COUNT 3.06 M/uL (4.7-6.1); WHITE BLOOD COUNT 5.55 K/uL (4.8-10.8)
[2016-08-08 11:04] LABS: MEAN PLATELET VOLUME 8.5 fL (7.4-10.4); PLATELET COUNT 82 K/uL (130-400)
[2016-08-08 11:32] LABS: BUN/CREATININE RATIO 7.9 (10-20); CALCIUM 8.1 mg/dl (8.5-10.1); CREATININE 1.8 mg/dl (0.60-1.40); MAGNESIUM 1.4 mg/dl (1.8-2.4); PHOSPHORUS 3.6 mg/dl (2.5-4.9)
[2016-08-08] MEDS: ONDANSETRON INJ 2 MG/ML 2 ML VIAL IV PRN ×2 (11:54→18:24)
[2016-08-08] MEDS ORDERED: MAGNESIUM SULFATE 1GM / D5W 1 GM in PREMIXED IN D5W 100 ML IV ONE (12:30)
--- NOTE | 2016-08-08 14:20 | Progress Note ---
Internal Med Progress Note Date of Service: Aug 08, 2016. Provider Documentation: SUBJECTIVE: The patient was seen and examined Complains of pain starts in mid back and spread all over the body Not any better Denies any SOB associated with it Pain is not yet controlled OBJECTIVE: Vital Signs-as noted below Exam: General-no distress at rest Eyes-normal ENT-normal Neck-supple Lungs-clear to ausucltate bilaterally Heart-regular,no murmur Abdomen-Benign,no masses ,bowel sound present Extremities-Trace edema bilaterally Neuro-AAox3 Lab data as noted below. ASSESSMENT & PLAN: Chronic Pain From Diabetic Polyneuropathy Complicate dby Ca lung with metastasis Currently on fentanyl patch Appreciate Pain management input and recommendation Continue on Fentanyl,Nucynta ,Keppra and Dilaudid Gabapentin discontinued Pain is not yet controlled INTRACTABLE NAUSEA AND VOMITING likely from Chemotherapy history of Gastroparesis, Chronic Narcotic use for Neuropathy Was on iv Zofran and Phenergan prn GI consulted ,input appreciated Started on Emend and feeling better ALTERED MENTAL STATUS HYPOXIA Hypoventilation likely from Narcotic Use in the setting of Acute Renal Failure on CKD 3 ABG, CT head unrevealing CXR questionable right lower lobe pneumonia, repeat CXR 2 views when able feels better and no more episodes Resolved ACUTE RENAL FAILURE ON CKD 3 likely Pre renal from Poor oral intake, Emesis renally dose medications Creatinine improved PANCYTOPENIA From chemotherapy Appreciate oncology inputs Counts are improving Improved as well DVT PROPHYLAXIS scds DISPOSITION to be determined Likely discharge tomorrow Vital Signs: Date Time Temp Pulse Resp B/P Pulse Ox O2 Delivery O2 Flow Rate FiO2 08/08/16 12:00 Room Air 08/08/16 11:28 36.9 94 20 174/92 96 Room Air 08/08/16 08:00 Room Air 08/08/16 07:50 36.9 94 20 184/115 96 08/08/16 04:00 Room Air 08/08/16 03:46 158/86 08/08/16 03:04 36.9 92 20 178/96 96 Room Air 08/08/16 00:00 Room Air 08/07/16 23:27 36.8 96 18 159/92 96 Room Air 08/07/16 20:00 Room Air 08/07/16 18:51 36.6 98 18 170/88 91 Room Air 08/07/16 16:00 97 Room Air 08/07/16 15:18 36.5 95 18 185/105 97 Room Air Lab Results: Results Past 24 Hours Test 08/07/16 16:14 08/07/16 19:50 08/08/16 06:34 08/08/16 10:55 Range/Units Bedside Glucose 170 257 185 70-99 mg/dl White Blood Count 5.55 4.8-10.8 K/uL Red Blood Count 3.06 4.7-6.1 M/uL Hemoglobin 8.8 14.0-18.0 g/dL Hematocrit 24.4 42-52 % Mean Corpuscular Volume 79.7 80-100 fL Mean Corpuscular Hemoglobin 28.8 25-34 pg Mean Corpuscular Hemoglobin Concent 36.1 32-36 g/dl RDW Standard Deviation 39.8 36.4-46.3 fL RDW Coefficient of Variation 13.8 11.5-14.5 % Platelet Count 82 130-400 K/uL Mean Platelet Volume 8.5 7.4-10.4 fL Sodium Level 138 136-145 mmol/L Potassium Level 4.0 3.5-5.1 mmol/L Chloride Level 100 98-107 mmol/L Carbon Dioxide Level 32 21-32 mmol/L Anion Gap 6.0 3-11 mmol/L Blood Urea Nitrogen 14 7-18 mg/dl Creatinine 1.80 0.60-1.40 mg/dl Est Creatinine Clear Calc Drug Dose 51.9 ml/min Estimated GFR () 49.8 Estimated GFR (Non- 42.9 BUN/Creatinine Ratio 7.9 10-20 Random Glucose 222 70-99 mg/dl Calcium Level 8.1 8.5-10.1 mg/dl Phosphorus Level 3.6 2.5-4.9 mg/dl Magnesium Level 1.4 1.8-2.4 mg/dl Test 08/08/16 11:26 Range/Units Bedside Glucose 214 70-99 mg/dl
[2016-08-09] MEDS: ONDANSETRON INJ 2 MG/ML 2 ML VIAL IV PRN ×3 (00:24→17:38)
[2016-08-09] MEDS: HYDROmorphone INJ 1 MG/ML SYR IV PRN ×8 (00:24→23:48)
[2016-08-09] MEDS: SODIUM CHLORIDE 0.9% 1000ML 1,000 ML IV SCH ×3 (01:27→17:39)
[2016-08-09] MEDS: TAPENTADOL HCL 50 MG TAB PO PRN ×3 (01:27→17:38)
[2016-08-09] MEDS ORDERED: FENTANYL PATCH REMOVE & WASTE SCH (01:29)
[2016-08-09 04:09] VITALS: BP 135/74; PULSE 92; TEMP 36.9; O2SAT 94
[2016-08-09 08:15] VITALS: BP 179/99; PULSE 95; TEMP 36.9; O2SAT 94
[2016-08-09] MEDS: DOCUSATE SODIUM/SENNA 50/8.6MG TAB PO SCH ×2 (08:24→12:30)
[2016-08-09] MEDS: AMLODIPINE BESYLATE 5 MG TAB PO SCH (08:24)
[2016-08-09] MEDS: MAGNESIUM CHLORIDE 64MG DELAYED REL TAB PO SCH ×2 (08:24→20:55)
[2016-08-09] MEDS: LEVETIRACETAM 500 MG TAB PO SCH (08:24)
[2016-08-09] MEDS: MULTIVITAMIN TAB PO SCH ×2 (08:24→12:30)
[2016-08-09] MEDS: CHECK FENTANYL PATCH PLACEMENT SCH ×3 (08:25→23:50)
[2016-08-09] MEDS: INSULIN ASPART 100 UNITS/ML 3 ML PEN SC SCH ×4 (08:25→21:01)
[2016-08-09] MEDS: PROMETHAZINE HCL INJ 25 MG in SODIUM CHLORIDE 0.9% 50ML 50 ML IV PRN ×2 (08:32→17:11)
[2016-08-09 08:52] LABS: HEMATOCRIT 25.5 % (42-52); MEAN CELL VOLUME 80.7 fL (80-100); MEAN CORPUSCULAR HEMOGLOBIN 28.8 pg (25-34); MEAN CORPUSCULAR HGB CONC 35.7 g/dl (32-36); MEAN PLATELET VOLUME 9.1 fL (7.4-10.4); PLATELET COUNT 106 K/uL (130-400); RED BLOOD COUNT 3.16 M/uL (4.7-6.1); WHITE BLOOD COUNT 9.78 K/uL (4.8-10.8)
[2016-08-09 09:15] LABS: BASO % 0.1 %; BASO ABS # 0.01 K/uL (0-0.2); COMPLETE YES; EOS % 0.6 %; IG% 2.2 %; LYMPH % 13.6 %; LYMPH ABS # 1.33 K/uL (1.2-3.4); MONO % 10.6 %; NEUT % 72.9 %; TOXIC GRANULATION 1+
[2016-08-09 09:17] LABS: BUN/CREATININE RATIO 6.9 (10-20); CALCIUM 8.3 mg/dl (8.5-10.1); CREATININE 1.5 mg/dl (0.60-1.40); POTASSIUM 3.9 mmol/L (3.5-5.1)
--- NOTE | 2016-08-09 09:41 | Pain Management Progress Note ---
Pain Management Progress Note Date of Service Aug 09, 2016. Subjective Mr. Hamilton is a 50 year old white male with gastroparesis, diabetic neuropathy , intractable nausea/vomiting, and undergoing chemotherapy treatment for lung CA. Patient states that his pain has not changed and his pain was worse over the night. He does also admit to vomiting again last night. Patient states that the Fentanyl Patch is moderately efficacious. Patient states that the Nucynta at 75mg x 4 hours has been more efficacious than the 50mg. He does tolerate Keppra 500mg BID without side effects. Patient rates his pain a 6/10 currently. He has utilized Dilaudid 1mg IV x 10 over the last 24 hours. Patient does continue to express mid back pain, abdominal bloating. No constitutional complaints, neurological symptoms, bowel/bladder incontinence. Case discussed with Dr. Hope Objective Vital Signs: Last Vital Signs Documentation Date Time Temp Pulse Resp B/P Pulse Ox O2 Delivery O2 Flow Rate FiO2 08/09/16 08:15 36.9 95 14 179/99 94 Room Air 08/08/16 17:18 2.0 Physical Exam: GENERAL: Mr. Hamilton is a 50-year-old white male that appears his stated age. Speech and cognition is intact. Mood and affect is appropriate. He is sitting quietly in the exam room, in no acute distress. NEURO: Normal gait. Patient is awake alert and oriented 3. Laboratory (Last CBC): 08/09/16 08:40 Red Blood Count 3.16 L, Mean Corpuscular Volume 80.7, Mean Corpuscular Hemoglobin 28.8, Mean Corpuscular Hemoglobin Concent 35.7, Mean Platelet Volume 9.1, Neutrophils (%) (Auto) 72.9, Lymphocytes (%) (Auto) 13.6, Monocytes (%) ( Auto) 10.6, Eosinophils (%) (Auto) 0.6, Basophils (%) (Auto) 0.1, Neutrophils # (Auto) 7.12 H, Lymphocytes # (Auto) 1.33, Monocytes # (Auto) 1.04 H, Eosinophils # (Auto) 0.06, Basophils # (Auto) 0.01 Assessment 1. Chronic pain secondary to diabetic polyneuropathy. 2. Chronic opiate dependency. 3. Intractable nausea/vomiting. 4. History of lung cancer, status post left lobectomy, currently on chemotherapy, last dose on 07/25/2016. 5. Pancytopenia. 6. History of gastroparesis, status post gastric stimulator implantation. Recommendations 1. Continue Fentanyl patch at 100mcg/hr 2. Continue Nucynta 75mg x 4 hours PRN pain 3. Plan to increase Keppra to 750mg BID 4. I have explained to the patient that medications should be taken PO rather than IV to prepare himself for discharge. He is utilizing Dilaudid 10mg IV over the last 24 hours. 5. Once the patient's nausea and vomiting is controlled again, he is anxious for discharge, hopefully today. [employer] Voice Recognition This chart was completed in part utilizing [employer] Voice Recognition Software. Random word insertions, pronoun errors, and incomplete sentences are an occasional consequence of this system due to software limitations and ambient noise. Any questions or concerns about the content, text or information contained within the body of this dictation should be directly addressed to the provider for clarification.
[2016-08-09] MEDS ORDERED: NURSING VERBAL MED ORDER ONE (09:45)
[2016-08-09 11:03] VITALS: BP 159/96; PULSE 95; TEMP 36.8; O2SAT 91
[2016-08-09] MEDS ORDERED: PANTOprazole SOD 40 MG TAB PO ONE (11:15)
--- NOTE | 2016-08-09 12:25 | Progress Note ---
Internal Med Progress Note Date of Service: Aug 09, 2016. Provider Documentation: SUBJECTIVE: The patient was seen and examined Pain is reasonably controlled Complains of Nausea and vomited a few times since last night OBJECTIVE: Vital Signs-as noted below Exam: General-no distress at rest Eyes-normal ENT-normal Neck-supple Lungs-clear to ausucltate bilaterally Heart-regular,no murmur Abdomen-Benign,soft,nontender,no masses ,bowel sound present Extremities-Trace edema bilaterally Neuro-AAox3 Lab data as noted below. ASSESSMENT & PLAN: INTRACTABLE NAUSEA AND VOMITING likely from Chemotherapy history of Gastroparesis, Chronic Narcotic use for Neuropathy Was on iv Zofran and Phenergan prn GI consulted ,input appreciated Started on Emend and feeling better Has had Nausea and Vomiting since last night Could be due to side effects of medication Gastritis Will try PPI and may need Emend again If better by this afternoon ,may be discharged Chronic Pain From Diabetic Polyneuropathy Complicate dby Ca lung with metastasis Currently on fentanyl patch Appreciate Pain management input and recommendation Continue on Fentanyl,Nucynta ,Keppra and Dilaudid Gabapentin discontinued Pain is reasonably controlled May be going home this afternoon ALTERED MENTAL STATUS HYPOXIA Hypoventilation likely from Narcotic Use in the setting of Acute Renal Failure on CKD 3 ABG, CT head unrevealing CXR questionable right lower lobe pneumonia, repeat CXR 2 views when able feels better and no more episodes Resolved ACUTE RENAL FAILURE ON CKD 3 likely Pre renal from Poor oral intake, Emesis renally dose medications Creatinine improved PANCYTOPENIA From chemotherapy Appreciate oncology inputs Counts are improving Improved as well Discontinue Neupogen DVT PROPHYLAXIS scds DISPOSITION to be determined Likely discharge this afternoon if better Vital Signs: Date Time Temp Pulse Resp B/P Pulse Ox O2 Delivery O2 Flow Rate FiO2 08/09/16 11:03 36.8 95 14 159/96 91 Room Air 08/09/16 10:48 Room Air 08/09/16 08:15 36.9 95 14 179/99 94 Room Air 08/09/16 08:00 Room Air 08/09/16 04:09 36.9 92 18 135/74 94 Room Air 08/09/16 00:00 Room Air 08/08/16 23:59 37.0 98 20 137/80 94 Room Air 08/08/16 17:47 36.7 101 17 157/90 97 Room Air 08/08/16 17:18 36.8 92 18 92 2.0 08/08/16 16:00 92 Room Air 08/08/16 15:38 36.8 92 18 166/95 92 Room Air Lab Results: Results Past 24 Hours Test 08/08/16 16:19 08/08/16 19:50 08/09/16 07:33 08/09/16 08:40 Range/Units Bedside Glucose 149 204 157 70-99 mg/dl White Blood Count 9.78 4.8-10.8 K/uL Red Blood Count 3.16 4.7-6.1 M/uL Hemoglobin 9.1 14.0-18.0 g/dL Hematocrit 25.5 42-52 % Mean Corpuscular Volume 80.7 80-100 fL Mean Corpuscular Hemoglobin 28.8 25-34 pg Mean Corpuscular Hemoglobin Concent 35.7 32-36 g/dl Platelet Count 106 130-400 K/uL Mean Platelet Volume 9.1 7.4-10.4 fL Neutrophils (%) (Auto) 72.9 % Lymphocytes (%) (Auto) 13.6 % Monocytes (%) (Auto) 10.6 % Eosinophils (%) (Auto) 0.6 % Basophils (%) (Auto) 0.1 % Neutrophils # (Auto) 7.12 1.4-6.5 K/uL Lymphocytes # (Auto) 1.33 1.2-3.4 K/uL Monocytes # (Auto) 1.04 0.11-0.59 K/uL Eosinophils # (Auto) 0.06 0-0.5 K/uL Basophils # (Auto) 0.01 0-0.2 K/uL RDW Standard Deviation 40.8 36.4-46.3 fL RDW Coefficient of Variation 14.0 11.5-14.5 % Immature Granulocyte % (Auto) 2.2 % Immature Granulocyte # (Auto) 0.22 0.00-0.02 K/uL Toxic Granulation 1+ Sodium Level 137 136-145 mmol/L Potassium Level 3.9 3.5-5.1 mmol/L Chloride Level 101 98-107 mmol/L Carbon Dioxide Level 28 21-32 mmol/L Anion Gap 8.0 3-11 mmol/L Blood Urea Nitrogen 10 7-18 mg/dl Creatinine 1.50 0.60-1.40 mg/dl Est Creatinine Clear Calc Drug Dose 62.7 ml/min Estimated GFR () 62.0 Estimated GFR (Non- 53.5 BUN/Creatinine Ratio 6.9 10-20 Random Glucose 163 70-99 mg/dl Calcium Level 8.3 8.5-10.1 mg/dl Test 08/09/16 11:31 Range/Units Bedside Glucose 192 70-99 mg/dl
[2016-08-09 15:54] VITALS: BP 161/84; PULSE 93; TEMP 37; O2SAT 95
[2016-08-09 16:00] VITALS: O2SAT 95
[2016-08-09 20:07] VITALS: BP 120/68; PULSE 93; TEMP 37.1; O2SAT 93
[2016-08-09] MEDS: LEVETIRACETAM 250 MG TAB PO SCH (20:56)
[2016-08-10] VITALS (8 sets, daily range): BP systolic 150–173; BP diastolic 78–96; PULSE 79–95; TEMP 36.7–37.2; O2SAT 90–98
[2016-08-10] MEDS: SODIUM CHLORIDE 0.9% 1000ML 1,000 ML IV SCH ×2 (00:54→08:08)
[2016-08-10] MEDS: ONDANSETRON INJ 2 MG/ML 2 ML VIAL IV PRN ×2 (01:09→12:25)
[2016-08-10] MEDS: HYDROmorphone INJ 1 MG/ML SYR IV PRN ×7 (01:47→22:10)
[2016-08-10] MEDS: TAPENTADOL HCL 50 MG TAB PO PRN ×3 (02:48→22:55)
[2016-08-10] MEDS: PROMETHAZINE HCL INJ 25 MG in SODIUM CHLORIDE 0.9% 50ML 50 ML IV PRN ×2 (08:08→14:22)
[2016-08-10] MEDS: MULTIVITAMIN TAB PO SCH (08:08)
[2016-08-10] MEDS: DOCUSATE SODIUM/SENNA 50/8.6MG TAB PO SCH (08:08)
[2016-08-10] MEDS: AMLODIPINE BESYLATE 5 MG TAB PO SCH (08:08)
[2016-08-10] MEDS: LEVETIRACETAM 250 MG TAB PO SCH ×2 (08:09→19:41)
[2016-08-10] MEDS: MAGNESIUM CHLORIDE 64MG DELAYED REL TAB PO SCH ×2 (08:09→19:41)
[2016-08-10] MEDS: CHECK FENTANYL PATCH PLACEMENT SCH ×3 (08:09→23:56)
[2016-08-10] MEDS: PANTOprazole SOD 40 MG TAB PO SCH (08:09)
[2016-08-10] MEDS: FENTANYL PATCH REMOVE & WASTE SCH (08:11)
[2016-08-10] MEDS: FENTANYL 100 MCG/HR TDSY TD SCH (08:14)
[2016-08-10] MEDS: INSULIN ASPART 100 UNITS/ML 3 ML PEN SC SCH ×4 (08:19→20:52)
[2016-08-10] MEDS ORDERED: PROMETHAZINE HCL 25 MG TAB PO PRN (15:15)
[2016-08-10] MEDS: PROMETHAZINE HCL 25 MG TAB PO SCH ×3 (16:00→23:56)
--- NOTE | 2016-08-10 16:09 | Progress Note ---
Internal Med Progress Note Date of Service: Aug 10, 2016. Provider Documentation: SUBJECTIVE: The patient was seen and examined Pain is reasonably controlled Complains of Nausea and vomited a few times since last night Still having nausea and vomiting Not yet ready to be discharged OBJECTIVE: Vital Signs-as noted below Exam: General-no distress at rest Eyes-normal ENT-normal Neck-supple Lungs-clear to ausucltate bilaterally Heart-regular,no murmur Abdomen-Benign,soft,nontender,no masses ,bowel sound present Extremities-Trace edema bilaterally Neuro-AAox3 Lab data as noted below. ASSESSMENT & PLAN: INTRACTABLE NAUSEA AND VOMITING likely from Chemotherapy history of Gastroparesis, Chronic Narcotic use for Neuropathy Was on iv Zofran and Phenergan prn GI consulted ,input appreciated Started on Emend and feeling better Has had Nausea and Vomiting since last night Could be due to side effects of medication Gastritis Will try PPI and may need Emend again Try regular dose of Phenergan and Zofran PRN No indication for Emend as regular basis -discussed with the GI Chronic Pain From Diabetic Polyneuropathy Complicate dby Ca lung with metastasis Currently on fentanyl patch Appreciate Pain management input and recommendation Continue on Fentanyl,Nucynta ,Keppra and Dilaudid Gabapentin discontinued Pain is reasonably controlled ALTERED MENTAL STATUS HYPOXIA Hypoventilation likely from Narcotic Use in the setting of Acute Renal Failure on CKD 3 ABG, CT head unrevealing CXR questionable right lower lobe pneumonia, repeat CXR 2 views when able feels better and no more episodes Resolved ACUTE RENAL FAILURE ON CKD 3 likely Pre renal from Poor oral intake, Emesis renally dose medications Creatinine improved PANCYTOPENIA From chemotherapy Appreciate oncology inputs Counts are improving Improved as well Discontinue Neupogen DVT PROPHYLAXIS scds DISPOSITION to be determined Likely discharge tomorrow Vital Signs: Date Time Temp Pulse Resp B/P Pulse Ox O2 Delivery O2 Flow Rate FiO2 08/10/16 14:59 36.8 85 18 161/79 93 Room Air 08/10/16 11:33 36.7 79 18 150/78 90 Room Air 08/10/16 08:00 Room Air 08/10/16 07:59 36.9 83 16 159/78 91 Room Air 08/10/16 04:28 37.0 89 18 162/81 92 Room Air 08/10/16 01:19 37.2 95 18 157/85 94 Room Air 08/10/16 00:00 95 Room Air 08/09/16 20:07 37.1 93 18 120/68 93 Room Air Lab Results: Results Past 24 Hours Test 08/09/16 16:26 08/09/16 20:36 08/10/16 07:47 08/10/16 11:17 Range/Units Bedside Glucose 176 232 176 201 70-99 mg/dl
[2016-08-11] VITALS (9 sets, daily range): BP systolic 146–221; BP diastolic 79–119; PULSE 80–100; TEMP 36.4–37; O2SAT 90–95
[2016-08-11] MEDS: PROMETHAZINE HCL 25 MG TAB PO SCH ×2 (00:35→05:05)
[2016-08-11] MEDS: HYDROmorphone INJ 1 MG/ML SYR IV PRN ×9 (00:36→22:24)
[2016-08-11] MEDS: AMLODIPINE BESYLATE 5 MG TAB PO SCH (08:04)
[2016-08-11] MEDS: LEVETIRACETAM 250 MG TAB PO SCH ×2 (08:05→20:20)
[2016-08-11] MEDS: DOCUSATE SODIUM/SENNA 50/8.6MG TAB PO SCH (08:05)
[2016-08-11] MEDS: PANTOprazole SOD 40 MG TAB PO SCH (08:05)
[2016-08-11] MEDS: MULTIVITAMIN TAB PO SCH (08:05)
[2016-08-11] MEDS: MAGNESIUM CHLORIDE 64MG DELAYED REL TAB PO SCH ×2 (08:05→20:20)
[2016-08-11] MEDS: CHECK FENTANYL PATCH PLACEMENT SCH ×2 (08:06→15:57)
[2016-08-11] MEDS: ONDANSETRON INJ 2 MG/ML 2 ML VIAL IV PRN ×2 (08:13→17:41)
[2016-08-11] MEDS: INSULIN ASPART 100 UNITS/ML 3 ML PEN SC SCH ×4 (09:06→20:41)
[2016-08-11] MEDS: TAPENTADOL HCL 50 MG TAB PO PRN ×3 (09:13→19:38)
[2016-08-11] MEDS ORDERED: METOCLOPRAMIDE HCL 10 MG TAB PO ONE (11:00)
[2016-08-11] MEDS ORDERED: METOPROLOL TARTRATE 25 MG TAB PO ONE (13:00)
--- NOTE | 2016-08-11 16:13 | Progress Note ---
Internal Med Progress Note Date of Service: Aug 11, 2016. Provider Documentation: SUBJECTIVE: The patient was seen and examined Pain is reasonably controlled Complains of Nausea and vomited a few times since last night Still having nausea and vomiting Not yet ready to be discharged and Blood pressure was noted to be very high this morning OBJECTIVE: Vital Signs-as noted below Exam: General-no distress at rest Eyes-normal ENT-normal Neck-supple Lungs-clear to ausucltate bilaterally Heart-regular,no murmur Abdomen-Benign,soft,nontender,no masses ,bowel sound present Extremities-Trace edema bilaterally Neuro-AAox3 Lab data as noted below. ASSESSMENT & PLAN: Very High Blood pressure Heart rate >90 Will start Lopressor Will not discharge today INTRACTABLE NAUSEA AND VOMITING likely from Chemotherapy history of Gastroparesis, Chronic Narcotic use for Neuropathy Was on iv Zofran and Phenergan prn GI consulted ,input appreciated Started on Emend and feeling better Has had Nausea and Vomiting since last night Could be due to side effects of medication Gastritis Will try PPI and may need Emend again Try regular dose of Phenergan and Zofran PRN No indication for Emend as regular basis -discussed with the GI Will try Reglan to control,Nausea and vomiting Chronic Pain From Diabetic Polyneuropathy Complicate dby Ca lung with metastasis Currently on fentanyl patch Appreciate Pain management input and recommendation Continue on Fentanyl,Nucynta ,Keppra and Dilaudid Gabapentin discontinued Pain is reasonably controlled ALTERED MENTAL STATUS HYPOXIA Hypoventilation likely from Narcotic Use in the setting of Acute Renal Failure on CKD 3 ABG, CT head unrevealing CXR questionable right lower lobe pneumonia, repeat CXR 2 views when able feels better and no more episodes Resolved ACUTE RENAL FAILURE ON CKD 3 likely Pre renal from Poor oral intake, Emesis renally dose medications Creatinine improved PANCYTOPENIA From chemotherapy Appreciate oncology inputs Counts are improving Improved as well Discontinue Neupogen DVT PROPHYLAXIS scds DISPOSITION to be determined Likely discharge when stable Vital Signs: Date Time Temp Pulse Resp B/P Pulse Ox O2 Delivery O2 Flow Rate FiO2 08/11/16 14:15 80 16 160/83 08/11/16 12:39 36.4 100 16 186/106 90 221/119 08/11/16 12:15 84 20 210/100 08/11/16 08:30 93 Room Air 08/11/16 08:21 36.9 91 16 195/96 93 196/95 08/11/16 05:41 36.9 85 18 159/87 92 Room Air 08/10/16 23:52 Room Air 08/10/16 23:03 82 18 169/87 Room Air 08/10/16 20:00 Room Air 08/10/16 19:22 36.7 81 20 173/96 98 Room Air Lab Results: Results Past 24 Hours Test 08/10/16 16:27 08/10/16 20:31 08/11/16 07:52 08/11/16 11:39 Range/Units Bedside Glucose 194 226 195 200 70-99 mg/dl
[2016-08-11] MEDS: METOCLOPRAMIDE HCL 10 MG TAB PO SCH ×2 (17:01→20:20)
[2016-08-11] MEDS: METOPROLOL TARTRATE 25 MG TAB PO SCH (20:20)
[2016-08-12] VITALS (12 sets, daily range): BP systolic 150–185; BP diastolic 81–99; PULSE 76–88; TEMP 36–37.2; O2SAT 16–98
[2016-08-12] MEDS: CHECK FENTANYL PATCH PLACEMENT SCH ×3 (00:14→16:22)
[2016-08-12] MEDS: TAPENTADOL HCL 50 MG TAB PO PRN ×4 (00:51→22:19)
[2016-08-12] MEDS: HYDROmorphone INJ 1 MG/ML SYR IV PRN ×10 (01:55→22:35)
[2016-08-12 06:09] LABS: HEMATOCRIT 21.7 % (42-52); MEAN CELL VOLUME 79.8 fL (80-100); MEAN CORPUSCULAR HEMOGLOBIN 28.3 pg (25-34); MEAN CORPUSCULAR HGB CONC 35.5 g/dl (32-36); MEAN PLATELET VOLUME 8.8 fL (7.4-10.4); PLATELET COUNT 133 K/uL (130-400); RED BLOOD COUNT 2.72 M/uL (4.7-6.1); WHITE BLOOD COUNT 4.56 K/uL (4.8-10.8)
[2016-08-12] MEDS: METOCLOPRAMIDE HCL 10 MG TAB PO SCH ×4 (06:39→20:38)
[2016-08-12 07:23] LABS: BUN/CREATININE RATIO 3.9 (10-20); CALCIUM 7.3 mg/dl (8.5-10.1); CREATININE 1.5 mg/dl (0.60-1.40); POTASSIUM 3.6 mmol/L (3.5-5.1)
[2016-08-12] MEDS ORDERED: POTASSIUM CHLORIDE 10 MEQ TABCR PO STA (08:07)
[2016-08-12] MEDS: MAGNESIUM CHLORIDE 64MG DELAYED REL TAB PO SCH ×2 (08:28→20:38)
[2016-08-12] MEDS: LEVETIRACETAM 250 MG TAB PO SCH ×2 (08:29→20:37)
[2016-08-12] MEDS: METOPROLOL TARTRATE 25 MG TAB PO SCH ×2 (08:29→20:38)
[2016-08-12] MEDS: PANTOprazole SOD 40 MG TAB PO SCH (08:29)
[2016-08-12] MEDS: MULTIVITAMIN TAB PO SCH (08:29)
[2016-08-12] MEDS: AMLODIPINE BESYLATE 5 MG TAB PO SCH (08:30)
[2016-08-12] MEDS: DOCUSATE SODIUM/SENNA 50/8.6MG TAB PO SCH (08:30)
[2016-08-12] MEDS: FENTANYL 100 MCG/HR TDSY TD SCH (08:38)
[2016-08-12] MEDS: INSULIN ASPART 100 UNITS/ML 3 ML PEN SC SCH ×4 (08:50→20:44)
[2016-08-12] MEDS: FENTANYL PATCH REMOVE & WASTE SCH (08:51)
[2016-08-12] MEDS: MAGNESIUM SULFATE 1GM / D5W 1 GM in PREMIXED IN D5W 100 ML IV SCH ×2 (08:54→10:18)
[2016-08-12] MEDS: ACETAMINOPHEN 325 MG TAB PO PRN (11:40)
--- NOTE | 2016-08-12 12:52 | Progress Note ---
Internal Med Progress Note Date of Service: Aug 12, 2016. Provider Documentation: SUBJECTIVE: The patient was seen and examined Pain is reasonably controlled Nausea and vomiting are better BP was noted to be high OBJECTIVE:: Exam: General-no distress at rest Eyes-normal ENT-normal Neck-supple Lungs-clear to ausucltate bilaterally Heart-regular,no murmur Abdomen-Benign,soft,nontender,no masses ,bowel sound present Extremities-Trace edema bilaterally Neuro-AAox3 Lab data as noted below. ASSESSMENT & PLAN: Very High Blood pressure Heart rate >90 Will start Lopressor Added Clonidine PRN INTRACTABLE NAUSEA AND VOMITING likely from Chemotherapy history of Gastroparesis, Chronic Narcotic use for Neuropathy Was on iv Zofran and Phenergan prn GI consulted ,input appreciated Started on Emend and feeling better Has had Nausea and Vomiting since last night Could be due to side effects of medication Gastritis Will try PPI and may need Emend again Try regular dose of Phenergan and Zofran PRN No indication for Emend as regular basis -discussed with the GI Will try Reglan to control,Nausea and vomiting Reglan is helping the Nausea and vomiting Anemia Secondary to Carcinoma Will transfuse 1 unit of PRBC Chronic Pain From Diabetic Polyneuropathy Complicate dby Ca lung with metastasis Currently on fentanyl patch Appreciate Pain management input and recommendation Continue on Fentanyl,Nucynta ,Keppra and Dilaudid Gabapentin discontinued Pain is reasonably controlled ALTERED MENTAL STATUS HYPOXIA Hypoventilation likely from Narcotic Use in the setting of Acute Renal Failure on CKD 3 ABG, CT head unrevealing CXR questionable right lower lobe pneumonia, repeat CXR 2 views when able feels better and no more episodes Resolved ACUTE RENAL FAILURE ON CKD 3 likely Pre renal from Poor oral intake, Emesis renally dose medications Creatinine improved PANCYTOPENIA From chemotherapy Appreciate oncology inputs Counts are improving Improved as well Discontinue Neupogen DVT PROPHYLAXIS scds DISPOSITION to be determined Likely discharge when stable Vital Signs: Date Time Temp Pulse Resp B/P Pulse Ox O2 Delivery O2 Flow Rate FiO2 08/12/16 12:10 36.4 81 18 178/95 98 08/12/16 11:53 36.7 76 20 185/94 98 08/12/16 11:36 37.2 80 18 170/91 98 08/12/16 08:30 97 Room Air 08/12/16 07:01 36.9 81 18 173/97 94 Room Air 08/12/16 04:01 36.8 88 18 172/96 94 Room Air 08/12/16 00:25 Room Air 08/11/16 22:47 37.0 85 20 146/82 90 Room Air 08/11/16 19:31 36.7 92 18 174/106 95 Room Air 08/11/16 16:44 36.9 82 16 154/79 95 08/11/16 16:00 Room Air 08/11/16 14:15 80 16 160/83 Lab Results: Results Past 24 Hours Test 08/11/16 16:50 08/11/16 20:24 08/12/16 05:40 08/12/16 07:55 Range/Units Bedside Glucose 183 244 200 70-99 mg/dl White Blood Count 4.56 4.8-10.8 K/uL Red Blood Count 2.72 4.7-6.1 M/uL Hemoglobin 7.7 14.0-18.0 g/dL Hematocrit 21.7 42-52 % Mean Corpuscular Volume 79.8 80-100 fL Mean Corpuscular Hemoglobin 28.3 25-34 pg Mean Corpuscular Hemoglobin Concent 35.5 32-36 g/dl RDW Standard Deviation 40.1 36.4-46.3 fL RDW Coefficient of Variation 14.6 11.5-14.5 % Platelet Count 133 130-400 K/uL Mean Platelet Volume 8.8 7.4-10.4 fL Sodium Level 137 136-145 mmol/L Potassium Level 3.6 3.5-5.1 mmol/L Chloride Level 97 98-107 mmol/L Carbon Dioxide Level 32 21-32 mmol/L Anion Gap 8.0 3-11 mmol/L Blood Urea Nitrogen 6 7-18 mg/dl Creatinine 1.50 0.60-1.40 mg/dl Est Creatinine Clear Calc Drug Dose 62.1 ml/min Estimated GFR () 62.0 Estimated GFR (Non- 53.5 BUN/Creatinine Ratio 3.9 10-20 Random Glucose 226 70-99 mg/dl Calcium Level 7.3 8.5-10.1 mg/dl Magnesium Level 1.0 1.8-2.4 mg/dl Test 08/12/16 11:29 Range/Units Bedside Glucose 263 70-99 mg/dl
[2016-08-12] MEDS: CLONIDINE HCL 0.1 MG TAB PO PRN (13:38)
[2016-08-12] MEDS: ONDANSETRON INJ 2 MG/ML 2 ML VIAL IV PRN (17:54)
[2016-08-13] MEDS: HYDROmorphone INJ 1 MG/ML SYR IV PRN ×7 (00:38→14:33)
[2016-08-13 03:56] VITALS: BP 149/81; PULSE 63; TEMP 36.6; O2SAT 96
[2016-08-13] MEDS: TAPENTADOL HCL 50 MG TAB PO PRN (05:01)
[2016-08-13] MEDS: METOCLOPRAMIDE HCL 10 MG TAB PO SCH ×2 (06:26→12:06)
[2016-08-13 06:58] LABS: HEMATOCRIT 23.4 % (42-52); MEAN CELL VOLUME 78.8 fL (80-100); MEAN CORPUSCULAR HEMOGLOBIN 28.3 pg (25-34); MEAN CORPUSCULAR HGB CONC 35.9 g/dl (32-36); MEAN PLATELET VOLUME 8.4 fL (7.4-10.4); PLATELET COUNT 135 K/uL (130-400); RED BLOOD COUNT 2.97 M/uL (4.7-6.1); WHITE BLOOD COUNT 3.79 K/uL (4.8-10.8)
[2016-08-13 07:29] LABS: BUN/CREATININE RATIO 5.6 (10-20); CALCIUM 7.6 mg/dl (8.5-10.1); CREATININE 1.6 mg/dl (0.60-1.40); MAGNESIUM 1.5 mg/dl (1.8-2.4); PHOSPHORUS 3.8 mg/dl (2.5-4.9); POTASSIUM 3.9 mmol/L (3.5-5.1)
[2016-08-13] MEDS: MULTIVITAMIN TAB PO SCH (07:31)
[2016-08-13] MEDS: AMLODIPINE BESYLATE 5 MG TAB PO SCH (07:32)
[2016-08-13] MEDS: MAGNESIUM CHLORIDE 64MG DELAYED REL TAB PO SCH (07:32)
[2016-08-13] MEDS: PANTOprazole SOD 40 MG TAB PO SCH (07:32)
[2016-08-13] MEDS: METOPROLOL TARTRATE 25 MG TAB PO SCH (07:32)
[2016-08-13] MEDS: LEVETIRACETAM 250 MG TAB PO SCH (07:33)
[2016-08-13] MEDS: CHECK FENTANYL PATCH PLACEMENT SCH ×2 (07:34)
[2016-08-13] MEDS: DOCUSATE SODIUM/SENNA 50/8.6MG TAB PO SCH (07:34)
[2016-08-13 07:39] VITALS: BP 173/91; PULSE 84; TEMP 36.8; O2SAT 99
[2016-08-13 08:45] VITALS: O2SAT 100
[2016-08-13] MEDS: INSULIN ASPART 100 UNITS/ML 3 ML PEN SC SCH ×2 (08:48→13:19)
[2016-08-13] MEDS: MAGNESIUM SULFATE 1GM / D5W 1 GM in PREMIXED IN D5W 100 ML IV SCH ×2 (09:31→11:00)
--- NOTE | 2016-08-13 11:04 | Progress Note ---
Internal Med Progress Note Date of Service: Aug 13, 2016. Provider Documentation: SUBJECTIVE: The patient was seen and examined Pain is reasonably controlled Nausea and vomiting are better BP was noted to be high Symptoms are better controlled Ambulating well,ready to be discharged todayb OBJECTIVE:: Exam: General-no distress at rest Eyes-normal ENT-normal Neck-supple Lungs-clear to ausucltate bilaterally Heart-regular,no murmur Abdomen-Benign,soft,nontender,no masses ,bowel sound present Extremities-Trace edema bilaterally Neuro-AAox3 Lab data as noted below. ASSESSMENT & PLAN: Very High Blood pressure Heart rate >90 Will start Lopressor Added Clonidine PRN Seems reasonable INTRACTABLE NAUSEA AND VOMITING likely from Chemotherapy history of Gastroparesis, Chronic Narcotic use for Neuropathy Was on iv Zofran and Phenergan prn GI consulted ,input appreciated Started on Emend and feeling better Has had Nausea and Vomiting since last night Could be due to side effects of medication Gastritis Will try PPI and may need Emend again Try regular dose of Phenergan and Zofran PRN No indication for Emend as regular basis -discussed with the GI Will try Reglan to control,Nausea and vomiting Reglan is helping the Nausea and vomiting No more Nausea and vomiting Keeping food down Anemia Secondary to Carcinoma Will transfuse 1 unit of PRBC Hb >8 after i unit of PRBC Chronic Pain From Diabetic Polyneuropathy Complicate dby Ca lung with metastasis Currently on fentanyl patch Appreciate Pain management input and recommendation Continue on Fentanyl,Nucynta ,Keppra and Dilaudid Gabapentin discontinued Pain is reasonably controlled Continue current medications ALTERED MENTAL STATUS HYPOXIA Hypoventilation likely from Narcotic Use in the setting of Acute Renal Failure on CKD 3 ABG, CT head unrevealing CXR questionable right lower lobe pneumonia, repeat CXR 2 views when able feels better and no more episodes Resolved ACUTE RENAL FAILURE ON CKD 3 likely Pre renal from Poor oral intake, Emesis renally dose medications Creatinine improved PANCYTOPENIA From chemotherapy Appreciate oncology inputs Counts are improving Improved as well Discontinue Neupogen DVT PROPHYLAXIS scds DISPOSITION Discharge home this afternoon Vital Signs: Date Time Temp Pulse Resp B/P Pulse Ox O2 Delivery O2 Flow Rate FiO2 08/13/16 08:45 100 Room Air 08/13/16 07:39 36.8 84 17 173/91 99 Room Air 08/13/16 03:56 36.6 63 20 149/81 96 Room Air 08/13/16 00:08 Room Air 08/12/16 23:12 36.6 82 18 155/81 96 Room Air 08/12/16 19:08 36.4 87 18 150/86 96 Room Air 08/12/16 17:38 37.0 79 16 165/95 97 169/99 08/12/16 16:00 Room Air 08/12/16 14:30 36.0 80 162/84 16 08/12/16 13:10 36.2 80 16 160/90 08/12/16 12:45 36.8 81 18 161/91 08/12/16 12:10 36.4 81 18 178/95 98 08/12/16 11:53 36.7 76 20 185/94 98 08/12/16 11:36 37.2 80 18 170/91 98 Lab Results: Results Past 24 Hours Test 08/12/16 11:29 08/12/16 20:15 08/13/16 06:40 08/13/16 07:40 Range/Units Bedside Glucose 263 256 231 70-99 mg/dl White Blood Count 3.79 4.8-10.8 K/uL Red Blood Count 2.97 4.7-6.1 M/uL Hemoglobin 8.4 14.0-18.0 g/dL Hematocrit 23.4 42-52 % Mean Corpuscular Volume 78.8 80-100 fL Mean Corpuscular Hemoglobin 28.3 25-34 pg Mean Corpuscular Hemoglobin Concent 35.9 32-36 g/dl RDW Standard Deviation 41.4 36.4-46.3 fL RDW Coefficient of Variation 15.2 11.5-14.5 % Platelet Count 135 130-400 K/uL Mean Platelet Volume 8.4 7.4-10.4 fL Sodium Level 136 136-145 mmol/L Potassium Level 3.9 3.5-5.1 mmol/L Chloride Level 97 98-107 mmol/L Carbon Dioxide Level 35 21-32 mmol/L Anion Gap 4.0 3-11 mmol/L Blood Urea Nitrogen 9 7-18 mg/dl Creatinine 1.60 0.60-1.40 mg/dl Est Creatinine Clear Calc Drug Dose 58.0 ml/min Estimated GFR () 57.4 Estimated GFR (Non- 49.5 BUN/Creatinine Ratio 5.6 10-20 Random Glucose 237 70-99 mg/dl Calcium Level 7.6 8.5-10.1 mg/dl Phosphorus Level 3.8 2.5-4.9 mg/dl Magnesium Level 1.5 1.8-2.4 mg/dl
[2016-08-13 11:50] VITALS: BP 173/91; PULSE 76; TEMP 36.5; O2SAT 91
[2016-08-13] MEDS: CLONIDINE HCL 0.1 MG TAB PO PRN (12:07)
[2016-08-13] MEDS ORDERED: LPR25 PO (14:07)
[2016-08-13] MEDS ORDERED: SLWMEC PO (14:07)
[2016-08-13] MEDS ORDERED: FNTTP50 TD (14:07)
[2016-08-13] MEDS ORDERED: RGL10 PO (14:07)
[2016-08-13] MEDS ORDERED: NCY50 PO (14:07)
[2016-08-13] MEDS ORDERED: KPP/750 PO (14:07)
[2016-08-13] MEDS ORDERED: HYDR8TAB29 PO (14:07)
--- NOTE | 2016-08-13 14:10 | Discharge Instructions ---
Discharge Instructions Date of Service Aug 13, 2016. Admission Reason for Admission: Intractable Nausea And Vomiting; [facility] Discharge Discharge Diagnosis / Problem: Severe Nausea and vomiting,Pancytopenia,Ca lung Discharge Goals Goal(s): Prevent Disease Progression Activity Recommendations Activity Limitations: resume your previous activity . Instructions / Follow-Up Instructions / Follow-Up Dr Hu on 08/15/16 at 3:30PM.Please keep appointment with your Oncologist Current Hospital Diet Patient's current hospital diet: Diabetes Type 2 Diet Discharge Diet Recommended Diet: Diabetes Type 2 Diet Pending Studies Studies pending at discharge: no Laboratory Results Hemoglobin A1c Test 08/06/16 06:48 Range/Units Estimated Average Glucose 252 mg/dl Hemoglobin A1c 10.4 H 4.5-5.6 % Medical Emergencies . Who to Call and When: Medical Emergencies: If at any time you feel your situation is an emergency, please call 911 immediately. . Non-Emergent Contact Non-Emergency issues call your: Primary Care Provider . Past History Medical & Surgical History: (1) Nausea and vomiting (2) Diabetes mellitus, type II (3) Diabetic polyneuropathy (4) Gastroparesis (5) Lung cancer (6) HTN (hypertension) (7) History of cholecystectomy (8) History of tonsillectomy and adenoidectomy (9) Hx of total knee arthroplasty (10) S/P lobectomy of lung . "Provider Documentation" section prepared by Stephon Vernon. VTE Core Measure Inpt VTE Proph given/why not?: SCD's (Pancytopenia)
[2016-08-13] MEDS ORDERED: NRV5 PO (14:11)
[2016-08-13 15:46] VITALS: BP 209/114; PULSE 82; TEMP 36.6; O2SAT 96
--- NOTE | 2016-08-14 12:41 | Discharge Summary ---
Discharge Summary Date of Service Aug 14, 2016. Discharge Summary Admission Date: Aug 05, 2016 at 15:13 Discharge Date: Aug 13, 2016 Discharge Disposition: Home Principal Diagnosis: Severe Nausea and vomiting,Pancytopenia,Ca lung Secondary Diagnoses/Problems: Please see H&P and Hospital Progress note Consultations: Pain Therapist,GI and Oncology Medication Reconciliation New Medications: Levetiracetam (Keppra) 750 Mg Tab 750 MG PO BID, #60 TAB Amlodipine Besylate (Amlodipine Besylate) 5 Mg Tab 5 MG PO QAM for 30 Days, #30 TAB Magnesium Chloride (Mag64) 64 Mg Tabcr 64 MG PO BID for 30 Days, #60 Metoclopramide HCl (Metoclopramide HCl) 10 Mg Tab 10 MG PO ACHS PRN for nausea for 10 Days, #40 TAB Metoprolol Tartrate (Lopressor) 25 Mg Tab 25 MG PO BID for 30 Days, #60 TAB Tapentadol HCl (Nucynta) 50 Mg Tab 75 MG PO Q4H PRN for Pain for 10 Days, #40 TAB Continued Medications: Acetaminophen (Tylenol) 500 Mg Tab 2 TAB PO TID for 2 Days, 3 Refills Aspirin (Aspirin Ec) 81 Mg Tab 81 MG PO QAM Dexamethasone (Decadron) 4 Mg Tab 4 TAB PO BID for 2 Days, #8 TAB Only on day of and day after chemo Epinephrine (Epipen) 0.3 Mg/0.3 Ml Inj 0.3 MG IM UD, INJ Fentanyl (Duragesic) 50 Mcg Tdsy 100 MCG TD Q48hr for 30 Days, #10 PATCH (This prescription has been renewed) LAST PLACED ON 08/04/16 at 1300 Gabapentin (Neurontin) 300 Mg Cap 600 MG PO TID, CAP Hydromorphone Hcl (Dilaudid) 8 Mg Tab 1 TAB PO TID PRN for Pain for 10 Days, #30 TAB (This prescription has been renewed) Insulin Glargine (Lantus) 100 Unit/Ml Inj 25 SC QPM, VIAL Insulin Human Lispro (Humalog) 1 Ea Inj 1 unit for every 10 greater than 120 Multiple Vitamin (Multivitamins) 1 Cap Cap 1 TAB PO QAM Ondansetron Tab (Zofran) 4 Mg Tab 8 MG PO Q8 PRN for Nausea, TAB Promethazine Hcl (Phenergan) 12.5 Mg Tab 2 TABS PO Q4H for Nausea or Vomiting for 7 Days, #30 TAB Admission Information HPI (per Admitting provider): This is a 50 y/o male with PMHx of Lung CA currently undergoing chemotherapy, Insulin-Dependent DM 2, diabetic polyneuropathy, gastroparesis s/p gastric stimulator, HTN and other problems as outlined below who presents from [facility] with intractable N/V for 1 week. Pt reports that one week ago he developed intractable N/V shortly after receiving his 2nd round of chemo (07/27). He was admitted to [facility] on 07/28 for his sxs and has been treated with scheduled doses of Zofran and Phenergan. Clinically, sxs have improved over the past week and patient reports only one episode of vomiting today however labs revealed a progressively worsening pancytopenia and increasing creatinine. Pt was diagnosed with Lung CA in Jan 2016. He underwent L sided lobectomy @ [facility] in May 2016. Pt is currently undergoing chemotherapy with Cisplatin /Pemetrexed. The plan is to complete 4 rounds of chemo. He follows with oncology , Dr. Amanda. Pt has a history of gastroparesis with gastric stimulator however he states that these sxs are more severe than his usual gastroparesis sxs. He experienced similar sxs after his first round of chemo and was admitted to [facility] at that time. Patient is also complaining of severe pain. He describes the pain as severe sharp/shooting pain that extends from his toes to his neck. Patient has a history of chronic pain secondary to diabetic neuropathy. He is on fentanyl patch and Dilaudid at home. He follows with pain mgmt. Pt denies fever/chills, diaphoresis, chest pain, palpitations, SOB, wheezing, bowel or bladder issues, LE edema, lightheadedness/dizziness. Past Medical/Surgical History Medical Problems: (1) Diabetes mellitus, type II Status: Chronic (2) Diabetic polyneuropathy Status: Chronic (3) Gastroparesis Permanent Comment: s/p gastric stimulator Status: Chronic (4) HTN (hypertension) Status: Chronic (5) Lung cancer Permanent Comment: dx 01/2016; s/p L side lobectomy; currently undergoing chemo Status: Chronic Surgical Problems: (1) History of cholecystectomy Status: Resolved (2) History of tonsillectomy and adenoidectomy Status: Resolved (3) Hx of total knee arthroplasty Status: Resolved (4) S/P lobectomy of lung Permanent Comment: [place] carrera @ [facility] [place]/25[place]16 Status: Resolved Social History Smoking Status: Former Smoker (2 pack year history) Smokeless Tobacco Use: Yes (1 can every 3 days since age 8 ) Drug Use: none Marital Status: Housing status: lives with significant other Multi-Drug Resistant Organisms History of MDRO: No Allergies Coded Allergies: BEE STING (Verified Allergy, Mild, SWELLING AT SITE, SOB, 04/16/13) Penicillins (Verified Allergy, Unknown, "SINCE ", 04/16/13) Home Medications Scheduled Acetaminophen (Tylenol), 2 TAB PO TID Aspirin (Aspirin Ec), 81 MG PO QAM Dexamethasone (Decadron), 4 TAB PO BID Epinephrine (Epipen), 0.3 MG IM UD Fentanyl (Duragesic), 100 MCG TD Q48hr Gabapentin (Neurontin), 600 MG PO TID Insulin Glargine (Lantus), 25 SC QPM Multiple Vitamin (Multivitamins), 1 TAB PO QAM Promethazine Hcl (Phenergan), 2 TABS PO Q4H Scheduled PRN Hydromorphone Hcl (Dilaudid), 1 TAB PO TID PRN for Pain Ondansetron Tab (Zofran), 8 MG PO Q8 PRN for Nausea Miscellaneous Medications Insulin Human Lispro (Humalog) Review of Systems Constitutional: + fatigue, + weakness, No chills, No fever, No sweats Eyes: No worsening of vision ENT: No hearing loss Respiratory: No cough, No shortness of breath Cardiovascular: No chest pain, No claudication, No edema Abdomen: + nausea, + pain, + vomiting, No GI bleeding, No constipation, No diarrhea Musculoskeletal: No calf pain, No swelling Genitourinary - Male: No dysuria Neurologic: + weakness Psychiatric: No depression symptoms Endocrine: + fatigue Hematologic / Lymphatic: No abnormal bleeding/bruising Integumentary: No new/changing skin lesions Physical Ex - H&P Physical Exam General Appearance: WD/WN, no apparent distress, + pertinent finding (Pt is sitting on edge of bed with at bedside) Head: normocephalic, atraumatic Eyes: normal inspection ENT: hearing grossly normal Neck: supple Respiratory/Chest: chest non-tender, lungs clear, normal breath sounds, no respiratory distress Cardiovascular: regular rate, rhythm, no edema, no murmur Abdomen/GI: normal bowel sounds, non tender, soft Back: normal inspection Extremities/Musculoskelatal: normal inspection, no calf tenderness, no pedal edema Neurologic/Psych: alert, normal mood/affect, oriented x 3 Skin: normal color, warm/dry Diagnostics - H&P Diagnostics Laboratory Results Results Past 24 Hours Test 08/05/16 16:12 Range/Units Impression - H&P Impression Assessment and Plan INTRACTABLE N/V SECONDARY TO CHEMOTHERAPY H/O GASTROPARESIS S/P GASTRIC STIMULATOR -pt is presented as a transfer from [facility] with chemo-induced intractable N/V; last chemo 07/26 -vitals are stable -obtain CBC, CMP, Mag, Phos -EKG and CXR per routine -start IVF, Phenergan and Emend -consult GI, Dr. Chaves -monitor PANCYTOPENIA -likely chemo-induced -avoid pharmacologic anticoagulation secondary to plt count 99 -neutropenic precautions IVAN -creatinine elevated at 2.6 (baseline 1.2-1.5) -start IVF -monitor with daily prp and avoid nephrotoxic agents when able HYPOMAGNESIA -Mag 1.0; replete -monitor daily DIABETIC POLYNEUROPATHY -cont gabapentin, fentanyl patch and IV Dilaudid PRN -consult pain mgmt LUNG CA S/P L SIDED LOBECTOMY -lobectomy 05/25/16 @ [facility] -currently undergoing chemo with Cisplatin/ pemetrexed (last chemo 07/26) -follows with oncology, Dr. Amanda INSULIN-DEPENDENT DM 2 -A1C 13.2 11/2015; recheck in AM -hold Lantus and NovoLog -start ISS -monitor BSG AC HS HTN -no antihypertensive medications DVT PROPHYLAXIS -SCDs only in setting of thrombocytopenia monitor Plt CODE STATUS -FULL CODE status DISPO Pt seen in collaboration with Dr. Car. Please see his addendum for further details. Thanks! -of note: patient will be followed by Dr. Saenz starting tomorrow AM. ATTENDING ADDENDUM care coordinated with CHARLI Mcfarland please refer to her notes for full details, I agree with her notes called by RN as patient was lethargic, while reviewing his chart, code purple called per RN, patient was noted to be progressively drowsy after receiving Emend, Phenergan, Dilaudid he was then found to be "slumped on the bed", snoring, pulse ox 50%, code purple called when i arrived, patient was awake but drowsy, oriented x 3, answering questions appropriately easily drifts back to sleep denies headache, nausea, chest pain, dyspnea, cough, or pain states he just feels tired,"trying to catch up" on sleep no other symptoms VS noted and reviewed oriented x 3 drowsy, not in distress, speaks in sentences with no effort nor accessory muscle use normal rate, regular rhythm, no murmurs clear breath sounds bilaterally non distended, soft, nontender no bipedal edema, erythema, warmth no neuro deficits wbc 1.2 Plt 99 crea 2.6 CXR: possible right lower lobe atelectasis vs. inflammation CT head: no acute process ABG: ph 7.45, co2 45 ASSESSMENT/PLAN> 50 year old male with Lung CA s/p Lobectomy 05/2016, on Chemo, Chronic Pain Secondary to Neuropathy, transferred from [facility] for intractable nausea/vomiting. INTRACTABLE NAUSEA/VOMITING likely from Chemotherapy history of Gastroparesis, Chronic Narcotic use for Neuropathy was on scheduled Phenergan, Zofran while in [place] with minimal relief as per family trial of Emend GI consulted ALTERED MENTAL STATUS HYPOXIA likely Hypoventilation likely from Narcotic Use in the setting of Acute Renal Failure on CKD 3 ABG, CT head unrevealing CXR questionable right lower lobe pneumonia, repeat CXR 2 views when able - did not give Narcan as patient has been on narcotics for years on PO Dilaudid at home, IV Dilaudid and Fentanyl patch while at [place] [facility] Fentanyl patch, IV Dilaudid, any narcotics tonight monitor in PCU ACUTE RENAL FAILURE ON CKD 3 likely Pre renal from Poor oral intake, Emesis hold narcotics for now renally dose medications - IV fluids monitor crea PANCYTOPENIA - from Chemotherapy - no signs of bleeding, infection at this time - Dr. Amanda consulted Neutropenic precautions other diagnoses and plan of care as per CHARLI Mcfarland's notes Antonino Car MD Advanced Directives Existing Living Will: No Existing Power of General Contractor: No VTE Prophylaxis VTE Risk Assessment Done? Y/N: Yes Risk Level: High Physical Exam (per Admitting): General Appearance: WD/WN, no apparent distress, + pertinent finding (Pt is sitting on edge of bed with at bedside) Head: normocephalic, atraumatic Eyes: normal inspection ENT: hearing grossly normal Neck: supple Respiratory/Chest: chest non-tender, lungs clear, normal breath sounds, no respiratory distress Cardiovascular: regular rate, rhythm, no edema, no murmur Abdomen/GI: normal bowel sounds, non tender, soft Back: normal inspection Extremities/Musculoskelatal: normal inspection, no calf tenderness, no pedal edema Neurologic/Psych: alert, normal mood/affect, oriented x 3 Skin: normal color, warm/dry Hospital Course Very High Blood pressure Heart rate >90 Will start Lopressor Added Clonidine PRN Seems reasonable INTRACTABLE NAUSEA AND VOMITING likely from Chemotherapy history of Gastroparesis, Chronic Narcotic use for Neuropathy Was on iv Zofran and Phenergan prn GI consulted ,input appreciated Started on Emend and feeling better Has had Nausea and Vomiting since last night Could be due to side effects of medication Gastritis Will try PPI and may need Emend again Try regular dose of Phenergan and Zofran PRN No indication for Emend as regular basis -discussed with the GI Will try Reglan to control,Nausea and vomiting Reglan is helping the Nausea and vomiting No more Nausea and vomiting Keeping food down Anemia Secondary to Carcinoma Will transfuse 1 unit of PRBC Hb >8 after i unit of PRBC Chronic Pain From Diabetic Polyneuropathy Complicate dby Ca lung with metastasis Currently on fentanyl patch Appreciate Pain management input and recommendation Continue on Fentanyl,Nucynta ,Keppra and Dilaudid Gabapentin discontinued Pain is reasonably controlled Continue current medications ALTERED MENTAL STATUS HYPOXIA Hypoventilation likely from Narcotic Use in the setting of Acute Renal Failure on CKD 3 ABG, CT head unrevealing CXR questionable right lower lobe pneumonia, repeat CXR 2 views when able feels better and no more episodes Resolved ACUTE RENAL FAILURE ON CKD 3 likely Pre renal from Poor oral intake, Emesis renally dose medications Creatinine improved PANCYTOPENIA From chemotherapy Appreciate oncology inputs Counts are improving Improved as well Discontinue Neupogen DVT PROPHYLAXIS scds DISPOSITION Discharge home this afternoon Total time spent on discharge = 35 minutes This includes examination of the patient, discharge planning, medication reconciliation, and communication with other providers. Discharge Instructions Date of Service Aug 13, 2016. Admission Reason for Admission: Intractable Nausea And Vomiting; Ivan Discharge Discharge Diagnosis / Problem: Severe Nausea and vomiting,Pancytopenia,Ca lung Discharge Goals Goal(s): Prevent Disease Progression Activity Recommendations Activity Limitations: resume your previous activity . Instructions / Follow-Up Instructions / Follow-Up Dr Hu on 08/15/16 at 3:30PM.Please keep appointment with your Oncologist Current Hospital Diet Patient's current hospital diet: Diabetes Type 2 Diet Discharge Diet Recommended Diet: Diabetes Type 2 Diet Pending Studies Studies pending at discharge: no Laboratory Results Hemoglobin A1c Test 08/06/16 06:48 Range/Units Estimated Average Glucose 252 mg/dl Hemoglobin A1c 10.4 H 4.5-5.6 % Medical Emergencies . Who to Call and When: Medical Emergencies: If at any time you feel your situation is an emergency, please call 911 immediately. . Non-Emergent Contact Non-Emergency issues call your: Primary Care Provider . Past History Medical & Surgical History: (1) Nausea and vomiting (2) Diabetes mellitus, type II (3) Diabetic polyneuropathy (4) Gastroparesis (5) Lung cancer (6) HTN (hypertension) (7) History of cholecystectomy (8) History of tonsillectomy and adenoidectomy (9) Hx of total knee arthroplasty (10) S/P lobectomy of lung . "Provider Documentation" section prepared by Stephon Vernon. VTE Core Measure Inpt VTE Proph given/why not?: SCD's (Pancytopenia) <Electronically signed by Stephon Vernon M.D.> Signed: 08/13/16 1410 Additional Copies To Bran Burgess M.D.
[2016-08-23] MEDS ORDERED: HYDR2TAB3 PO (10:57)
[2016-08-23] MEDS ORDERED: TAPE100T2 PO (10:57)
[2016-08-23] MEDS ORDERED: AMLO-114 PO (10:57)
[2016-08-25] MEDS ORDERED: ONDA4TAB54 PO (00:33)
[2016-08-25] MEDS ORDERED: MULTCAP42 PO (15:07)
[2016-08-25] MEDS ORDERED: EPP3/2 IM (15:07)
[2016-10-05] MEDS ORDERED: FENT100D10 TOP (09:21)
[2016-10-05] MEDS ORDERED: DRGTP50 TOP (09:21)
[2016-10-18] MEDS ORDERED: INSDGIPEN SC (14:52)
[2016-10-18] MEDS ORDERED: NVLG SC (15:02)
[2016-12-19] MEDS ORDERED: FOLI1TAB7 PO (15:00)
[2016-12-19] MEDS ORDERED: FENT75DI2 EX (15:00)
[2016-12-19] MEDS ORDERED: LEVE750T PO (15:00)
[2017-01-14] MEDS ORDERED: VNTHFA/IN INH (09:25)
[2017-01-14] MEDS ORDERED: AMLO-114 PO (09:25)
[2017-01-14] MEDS ORDERED: NRN/600 PO (09:25)
[2017-03-19] MEDS ORDERED: HYDR2TAB48 PO (10:26)
[2017-03-19] MEDS ORDERED: PRLSR20 PO (10:26)
[2017-03-19] MEDS ORDERED: CEFA1INJ IV (10:26)
[2017-03-19] MEDS ORDERED: PEGSOL13 (10:26)
[2017-03-19] MEDS ORDERED: FERR1TAB13 PO (10:26)
[2017-03-19] MEDS ORDERED: DRGTP100 (10:27)
[2017-03-19] MEDS ORDERED: LISI-725 PO (10:27)
[2017-03-19] MEDS ORDERED: HYZ/50125 PO (10:27)
== END 2016-08-13 15:45 | disposition home or self-care (01) | DRG 809 ==
LOC: ENRESERVTM → ENRESERVDT → C.4E 15:13 → C.2T 20:15 → C.4E 08-08 17:30
PROVIDERS: ADMIT Internal Medicine; ATTEND Internal Medicine
DX: D61.811 Other drug-induced pancytopenia (principal); T45.1X5A Adverse effect of antineoplastic and immunosuppressive drugs, initial encounter; N17.9 Acute kidney failure, unspecified; C34.90 Malignant neoplasm of unspecified part of unspecified bronchus or lung; F11.20 Opioid dependence, uncomplicated; E11.21 Type 2 diabetes mellitus with diabetic nephropathy; R11.2 Nausea with vomiting, unspecified; E11.42 Type 2 diabetes mellitus with diabetic polyneuropathy; I12.9 Hypertensive chronic kidney disease with stage 1 through stage 4 chronic kidney disease, or unspecified chronic kidney disease; D63.8 Anemia in other chronic diseases classified elsewhere; N18.3 Chronic kidney disease, stage 3 (moderate); Z96.659 Presence of unspecified artificial knee joint; Z79.4 Long term (current) use of insulin; K21.0 Gastro-esophageal reflux disease with esophagitis; K29.70 Gastritis, unspecified, without bleeding; Z87.891 Personal history of nicotine dependence; E83.42 Hypomagnesemia; Z90.2 Acquired absence of lung [part of]; Z88.0 Allergy status to penicillin; Y92.009 Unspecified place in unspecified non-institutional (private) residence as the place of occurrence of the external cause

== ENCOUNTER 2016-08-14 23:31 | Inpatient (IN) | payer SELFPAY ==
[~2016-08-14] VITALS: Ht 172.7 cm; Wt 87.7 kg
[~2016-08-14 23:31] MED LIST changes: -GABA-112 PO; +HYDR8TAB29 PO; -INSPMPHMLG; +KPP/750 PO; +LPR25 PO; -MESA1.2T PO; -METO-157 PO; +NCY50 PO; +NRV5 PO; -OMEP20CA9 PO; -OXYC-57 PO; +RGL10 PO; -SENN-104 PO; +SLWMEC PO; -VALS40TA2 PO
[2016-08-14] MEDS ORDERED: SODIUM CHLORIDE 0.9% 1000ML 1,000 ML IV STA (23:53)
[2016-08-14] MEDS ORDERED: HYDROmorphone INJ 1 MG/ML SYR IV STA (23:53)
[2016-08-14] MEDS ORDERED: ONDANSETRON INJ 2 MG/ML 2 ML VIAL IV STA (23:53)
[2016-08-15] VITALS (7 sets, daily range): BP systolic 119–167; BP diastolic 78–100; PULSE 85–86; TEMP 36.7–36.8; O2SAT 91–99; BMI 25.7
[2016-08-15 00:13] LABS: HEMATOCRIT 30.3 % (42-52); MEAN CELL VOLUME 77.3 fL (80-100); MEAN CORPUSCULAR HEMOGLOBIN 28.3 pg (25-34); MEAN CORPUSCULAR HGB CONC 36.6 g/dl (32-36); MEAN PLATELET VOLUME 8.1 fL (7.4-10.4); PLATELET COUNT 199 K/uL (130-400); RED BLOOD COUNT 3.92 M/uL (4.7-6.1); WHITE BLOOD COUNT 5.65 K/uL (4.8-10.8)
[2016-08-15 00:32] LABS: ALT/SGPT 10 U/L (12-78); BLOOD UREA NITROGEN 11 mg/dl (7-18); BUN/CREATININE RATIO 7.4 (10-20); CARBON DIOXIDE 32 mmol/L (21-32); CHLORIDE 94 mmol/L (98-107); GLUCOSE 243 mg/dl (70-99); MAGNESIUM 1.3 mg/dl (1.8-2.4); POTASSIUM 3.4 mmol/L (3.5-5.1); SODIUM 137 mmol/L (136-145)
[2016-08-15 00:35] LABS: ALKALINE PHOSPHATASE 103 U/L (45-117); AST/SGOT 12 U/L (15-37); PHOSPHORUS 3.3 mg/dl (2.5-4.9)
[2016-08-15] MEDS ORDERED: PROMETHAZINE HCL INJ 25 MG in SODIUM CHLORIDE 0.9% 50ML 50 ML IV STA (00:37)
[2016-08-15 01:01] LABS: BASO % 0.2 %; BASO ABS # 0.01 K/uL (0-0.2); COMPLETE YES; EOS % 2.3 %; IG% 4.1 %; LYMPH % 21.1 %; LYMPH ABS # 1.19 K/uL (1.2-3.4); MONO % 12.9 %; NEUT % 59.4 %; TOXIC GRANULATION 2+
[2016-08-15] MEDS ORDERED: LORAZEPAM 2 MG/ML 1 ML VIAL IV STA (01:25)
[2016-08-15] MEDS ORDERED: MAGNESIUM SULFATE 1GM / D5W 1 GM BAG IV STA (01:26)
[2016-08-15] MEDS ORDERED: SODIUM CHLORIDE 0.9% 1000ML 1,000 ML IV STA (01:35)
--- NOTE | 2016-08-15 01:48 | EMERGENCY ROOM VISIT NOTE ---
History Report prepared by Nedra: Ruperto Hooker Under the Supervision of: Dr. Misael Tavarez M.D. First contact with patient: 23:48 Chief Complaint: VOMITING Stated Complaint: VOMITING WITH PAIN History of Present Illness The patient is a 50 year old male who presents to the Emergency Room with complaints of persistent vomiting beginning yesterday. He was diagnosed with lung cancer a few months ago, and has since had a lung resection. He is receiving chemotherapy for his cancer, and his most recent treatment was a few weeks ago. The patient has a fentanyl patch for his pain. He also complains of a headache and worsening generalized body pain, worse in his groin. He was admitted as an inpatient last week for similar symptoms and was discharged yesterday. The patient denies any abdominal pain. Source of History: patient Onset: yesterday Quality: other (vomiting) Timing: other (persistent) Associated Symptoms: + headache, No abdominal pain Note: The patient also complains of worsening generalized body pain. Review of Systems See HPI for pertinent positives & negatives. A total of 10 systems reviewed and were otherwise negative. Past Medical & Surgical Medical Problems: (1) Diabetes mellitus, type II (2) Diabetic polyneuropathy (3) Gastroparesis (4) HTN (hypertension) (5) Lung cancer (6) Nausea and vomiting Surgical Problems: (1) History of cholecystectomy (2) History of tonsillectomy and adenoidectomy (3) Hx of total knee arthroplasty (4) S/P lobectomy of lung Family History No pertinent family history stated. Social History Smoking Status: Former Smoker Drug Use: none Marital Status: Current/Historical Medications Scheduled Amlodipine Besylate (Amlodipine Besylate), 5 MG PO QAM Aspirin (Aspirin Ec), 81 MG PO QAM Dexamethasone (Decadron), 4 TAB PO BID Fentanyl (Duragesic), 100 MCG TD Q48hr Gabapentin (Neurontin), 600 MG PO TID Insulin Glargine (Lantus), 25 SC QPM Levetiracetam (Keppra), 750 MG PO BID Magnesium Chloride (Mag64), 64 MG PO BID Metoprolol Tartrate (Lopressor), 25 MG PO BID Multiple Vitamin (Multivitamins), 1 TAB PO QAM Scheduled PRN Acetaminophen (Tylenol), 2 TAB PO TID PRN for Pain Epinephrine (Epipen), 0.3 MG IM UD PRN for ALLERGIC REACTION Hydromorphone Hcl (Dilaudid), 1 TAB PO TID PRN for Pain Metoclopramide HCl (Metoclopramide HCl), 10 MG PO ACHS PRN for nausea Ondansetron (Ondansetron HCl), 8 MG PO Q8 PRN for Nausea Promethazine Hcl (Phenergan), 2 TABS PO Q4H PRN for Nausea or Vomiting Tapentadol HCl (Nucynta), 75 MG PO Q4H PRN for Pain Miscellaneous Medications Insulin Human Lispro (Humalog) Allergies Coded Allergies: BEE STING (Verified Allergy, Mild, SWELLING AT SITE, SOB, 08/15/16) Penicillins (Verified Allergy, Unknown, "SINCE ", 08/15/16) Physical Exam Vital Signs Date Time Temp Pulse Resp B/P Pulse Ox O2 Delivery O2 Flow Rate FiO2 08/15/16 02:31 86 15 08/15/16 02:30 145/73 08/15/16 02:19 155/82 08/15/16 02:13 85 08/15/16 02:08 180/104 08/15/16 01:35 94 18 183/101 98 Room Air 08/14/16 23:41 36.7 101 20 172/104 99 Room Air Physical Exam GENERAL: Patient is chronically unwell appearing, dehydrated, and in moderate distress. HEENT: No acute trauma, normocephalic atraumatic, mucous membranes dry, no nasal congestion, no scleral icterus. NECK: No stridor, no adenopathy, no meningismus, trachea is midline. LUNGS: No dyspnea. Clear to auscultation and equal bilaterally. No wheeze, no rhonchi. HEART: Regular rate and rhythm. No murmurs, rubs, gallops appreciated. ABDOMEN: Soft, nontender, bowel sounds positive, no masses appreciated, no peritonitis. Device in the left mid-abdomen. BACK: No midline tenderness, no CVA tenderness EXTREMITIES: Normal motion all extremities, no cyanosis, no edema. NEUROLOGIC: Alert and oriented, no acute motor or sensory deficits, no focal weakness, cranial nerves grossly intact. SKIN: No rash, no jaundice, no diaphoresis. Medical Decision & Procedures Laboratory Results Test 08/14/16 23:50 08/15/16 00:03 Immature Granulocyte % (Auto) 4.1 % White Blood Count 5.65 K/uL (4.8-10.8) Red Blood Count 3.92 M/uL (4.7-6.1) Hemoglobin 11.1 g/dL (14.0-18.0) Hematocrit 30.3 % (42-52) Mean Corpuscular Volume 77.3 fL (80-100) Mean Corpuscular Hemoglobin 28.3 pg (25-34) Mean Corpuscular Hemoglobin Concent 36.6 g/dl (32-36) Platelet Count 199 K/uL (130-400) Mean Platelet Volume 8.1 fL (7.4-10.4) Neutrophils (%) (Auto) 59.4 % Lymphocytes (%) (Auto) 21.1 % Monocytes (%) (Auto) 12.9 % Eosinophils (%) (Auto) 2.3 % Basophils (%) (Auto) 0.2 % Neutrophils # (Auto) 3.36 K/uL (1.4-6.5) Lymphocytes # (Auto) 1.19 K/uL (1.2-3.4) Monocytes # (Auto) 0.73 K/uL (0.11-0.59) Eosinophils # (Auto) 0.13 K/uL (0-0.5) Basophils # (Auto) 0.01 K/uL (0-0.2) Immature Granulocyte # (Auto) 0.23 K/uL (0.00-0.02) Toxic Granulation 2+ Phosphorus Level 3.3 mg/dl (2.5-4.9) Total Bilirubin 0.5 mg/dl (0.2-1) Direct Bilirubin 0.1 mg/dl (0-0.2) Aspartate Amino Transf (AST/SGOT) 12 U/L (15-37) Alanine Aminotransferase (ALT/SGPT) 10 U/L (12-78) Alkaline Phosphatase 103 U/L (45-117) Troponin I < 0.015 ng/ml (0-0.045) Total Protein 7.3 gm/dl (6.4-8.2) Albumin 3.1 gm/dl (3.4-5.0) Lipase 37 U/L (73-393) Bedside Lactic Acid Venous 1.02 mmol/L (0.90-1.70) Laboratory results as reviewed by me. Medications Administered Medications (Trade) Dose Ordered Sig/Cal Route Start Time Stop Time Status Last Admin Dose Admin Sodium Chloride (Nss 1000ml) 1,000 ml @ 999 mls/hr Q1H1M STAT IV 08/14/16 23:53 08/15/16 00:53 DC 08/15/16 00:11 999 MLS/HR Ondansetron HCl (Zofran Inj) 4 mg NOW STAT IV 08/14/16 23:53 08/14/16 23:55 DC 08/15/16 00:11 4 MG Hydromorphone HCl 1 mg 1 mg NOW STAT IV 08/14/16 23:53 08/14/16 23:55 DC 08/15/16 00:11 1 MG Promethazine HCl/ Sodium Chloride (Phenergan Inj/ Nss 50ml) 51 ml @ 204 mls/hr NOW STAT IV 08/15/16 00:37 08/15/16 00:51 DC 08/15/16 00:37 204 MLS/HR Lorazepam (Ativan Inj) 1 mg NOW STAT IV 08/15/16 01:25 08/15/16 01:26 DC 08/15/16 01:37 1 MG Magnesium Sulfate 2 gm 2 gm NOW STAT IV 08/15/16 01:26 08/15/16 01:27 DC 08/15/16 01:37 2 GM Sodium Chloride (Nss 1000ml) 1,000 ml @ 999 mls/hr Q1H1M STAT IV 08/15/16 01:35 08/15/16 02:35 DC 08/15/16 01:38 999 MLS/HR Labetalol HCl (Normodyne IV) 10 mg NOW STAT IV 08/15/16 02:00 08/15/16 02:01 DC 08/15/16 02:12 10 MG Hydromorphone HCl (Dilaudid Inj) 1 mg NOW STAT IV 08/15/16 02:36 08/15/16 02:37 DC 08/15/16 02:43 1 MG ECG Indication: vomiting Rate (beats per minute): 98 Rhythm: normal sinus Findings: no acute ischemic change, no ectopy ED Course 2350: The patient was evaluated in room B2. A complete history and physical exam was performed. 2352: Ordered Dilaudid Inj 1 mg IV, Zofran Inj 4 mg IV, Sodium Chloride 1000 ml @ 999 mls/hr. 0037: Ordered Promethazine HCl 25 mg/Sodium Chloride 51 ml @ 204 mls/hr. 0125: I reassessed the patient. He is severely nauseous. He states "I cannot live like this at home" and would like to be evaluated by the hospitalist. Ordered Ativan Inj 1 mg IV, Magnesium Sulfate 2 gm IV. 0135: Ordered Sodium Chloride 1000 ml @ 999 mls/hr. 0140: Upon reevaluation, the patient is resting comfortably. Discussed results and treatment plan with the patient. He verbalized understanding and agreement with the treatment plan. The patient will be evaluated for further management. Medical Decision Differential: Gastroenteritis, Food Borne, Esophageal Perforation, , Electrolyte Abnormality, Dehydration, Intraabdominal Infection, UTI/ Pyelonephritis, Bowel Obstruction, Biliary Pathology, amongst other pathology entertained. 50 yr old male who has not tolerated chemo for his Lung CA very well. After 2 weeks in hospital managed 1 day out before returning due to persistent vomiting , not keeping down meds and increasing pain. Required several rounds anti- nausea meds including Ativan to treat nausea. Multiple rounds pain meds as well. Labs with persistent hypomagnesemia. CR at recent baseline. No infectious findings. HTN thus labetalol given. Will have hospitalist eval for further treatment. Consults Time Called: [phone] Consulting Physician: Dr. Loyd Brenner Returned Call: [phone] Discussed the patient's case. The patient will be evaluated for further treatment and disposition. Impression Primary Impression: Intractable vomiting Additional Impressions: vomiting post-chemotherapy Dehydration Failure of outpatient treatment Hypomagnesemia HTN (hypertension) Scribe Attestation The scribe's documentation has been prepared under my direction and personally reviewed by me in its entirety. I confirm that the note above accurately reflects all work, treatment, procedures, and medical decision making performed by me. Departure Information Dispostion Being Evaluated By Hospitalist Referrals Bran Burgess M.D. (PCP) Patient Instructions My [facility] Problem Qualifiers Primary Impression: Intractable vomiting Vomiting type: unspecified Nausea presence: with nausea Qualified Codes: R11.2 - Nausea with vomiting, unspecified Additional Impressions: HTN (hypertension) Hypertension type: essential hypertension Qualified Codes: I10 - Essential ( primary) hypertension
[2016-08-15] MEDS ORDERED: LABETALOL HCL IV 5 MG/ML 20ML IV STA (02:00)
[2016-08-15] MEDS ORDERED: HYDROmorphone INJ 1 MG/ML SYR IV STA (02:36)
[2016-08-15] MEDS ORDERED: ACETAMINOPHEN 325 MG TAB PO PRN (02:45)
[2016-08-15] MEDS ORDERED: ALUMINUM/MAGNESIUM/SIMETH (MAALOX MAX) 30 ML UDC PO PRN (02:45)
[2016-08-15] MEDS ORDERED: GLUCOSE 10 TABS/TUBE PO PRN (02:45)
[2016-08-15] MEDS ORDERED: GLUCOSE 40% GEL 15 GM TUBE PO PRN (02:45)
[2016-08-15] MEDS ORDERED: DEXTROSE 50% 50 ML SYR IV PRN (02:45)
[2016-08-15] MEDS ORDERED: MAGNESIUM HYDROXIDE SUSP 30 ML UDC PO PRN (02:45)
[2016-08-15] MEDS ORDERED: ZOLPIDEM TARTRATE 5 MG TAB PO PRN (02:45)
[2016-08-15] MEDS ORDERED: GLUCAGON FOR INJ 1 MG VIAL SQ PRN (02:45)
--- NOTE | 2016-08-15 02:55 | History and Physical ---
History & Physical Date & Time of Service: Aug 15, 2016 at 02:41 Chief Complaint: Vomiting With Pain Primary Care Physician: Bran Burgess M.D. 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 on chemo tx , Insulin dependent DM2, Diabetic neuropathy , gastroparesis , s/p gastric stimulator placement , HTN presented to ED with complain of intractable Nausea /vomiting, worsening of generalized body pain Pt was recently admitted to [facility] from 08/05/16 -08/13/16 with similar symptom - of intractable N/V thought secondary thought to be secondary to chemo, gastroparesis, chronic narcotic use for neuropathy was evaluated by GI , oncology and pain management team Pt states after being discharged home -his GI symptom recurred with worsening of nausea /vomiting /abdominal pain , could not keep down food or drink could not swallow PO antiemetics felt very weak and lightheaded ; generalized body ache came to ED for further evaluation Past Medical/Surgical History Medical Problems: (1) Diabetes mellitus, type II Status: Chronic (2) Diabetic polyneuropathy Status: Chronic (3) Gastroparesis Permanent Comment: s/p gastric stimulator Status: Chronic (4) HTN (hypertension) Status: Chronic (5) Lung cancer Permanent Comment: dx 01/2016; s/p L side lobectomy; currently undergoing chemo Status: Chronic Surgical Problems: (1) History of cholecystectomy Status: Resolved (2) History of tonsillectomy and adenoidectomy Status: Resolved (3) Hx of total knee arthroplasty Status: Resolved (4) S/P lobectomy of lung Permanent Comment: L side @ [facility] 05/25/16 Status: Resolved Social History Smoking Status: Former Smoker Drug Use: none Marital Status: Housing status: lives with significant other Multi-Drug Resistant Organisms History of MDRO: No Allergies Coded Allergies: BEE STING (Verified Allergy, Mild, SWELLING AT SITE, SOB, 08/15/16) Penicillins (Verified Allergy, Unknown, "SINCE ", 08/15/16) Home Medications Scheduled Amlodipine Besylate (Amlodipine Besylate), 5 MG PO QAM Aspirin (Aspirin Ec), 81 MG PO QAM Dexamethasone (Decadron), 4 TAB PO BID Fentanyl (Duragesic), 100 MCG TD Q48hr Gabapentin (Neurontin), 600 MG PO TID Insulin Glargine (Lantus), 25 SC QPM Levetiracetam (Keppra), 750 MG PO BID Magnesium Chloride (Mag64), 64 MG PO BID Metoprolol Tartrate (Lopressor), 25 MG PO BID Multiple Vitamin (Multivitamins), 1 TAB PO QAM Scheduled PRN Acetaminophen (Tylenol), 2 TAB PO TID PRN for Pain Epinephrine (Epipen), 0.3 MG IM UD PRN for ALLERGIC REACTION Hydromorphone Hcl (Dilaudid), 1 TAB PO TID PRN for Pain Metoclopramide HCl (Metoclopramide HCl), 10 MG PO ACHS PRN for nausea Ondansetron (Ondansetron HCl), 8 MG PO Q8 PRN for Nausea Promethazine Hcl (Phenergan), 2 TABS PO Q4H PRN for Nausea or Vomiting Tapentadol HCl (Nucynta), 75 MG PO Q4H PRN for Pain Miscellaneous Medications Insulin Human Lispro (Humalog) Review of Systems Constitutional: + chills, + fatigue, + problem reported (generalized body ache ), + sweats, + weakness, + weight loss Respiratory: + dyspnea on exertion Abdomen: + nausea, + problem reported (abdominal pain ), + vomiting Neurologic: + balance problems, + numbness/tingling, + vertigo, + weakness Psychiatric: + anxiety, + insomnia Physical Exam Vital Signs Date Time Temp Pulse Resp B/P Pulse Ox O2 Delivery O2 Flow Rate FiO2 08/15/16 02:13 85 08/15/16 01:35 94 18 183/101 98 Room Air 08/14/16 23:41 36.7 101 20 172/104 99 Room Air General Appearance: + moderate distress, + cachetic Eyes: sclerae normal Respiratory/Chest: lungs clear, no respiratory distress Cardiovascular: regular rate, rhythm Abdomen/GI: soft, + tenderness (in epigastric and lower abdomen diffusely ) Extremities/Musculoskelatal: no pedal edema Neurologic/Psych: alert, oriented x 3, + depressed affect Diagnostics Laboratory Results Results Past 24 Hours Test 08/14/16 23:50 08/15/16 00:03 Range/Units White Blood Count 5.65 4.8-10.8 K/uL Red Blood Count 3.92 4.7-6.1 M/uL Hemoglobin 11.1 14.0-18.0 g/dL Hematocrit 30.3 42-52 % Mean Corpuscular Volume 77.3 80-100 fL Mean Corpuscular Hemoglobin 28.3 25-34 pg Mean Corpuscular Hemoglobin Concent 36.6 32-36 g/dl Platelet Count 199 130-400 K/uL Mean Platelet Volume 8.1 7.4-10.4 fL Neutrophils (%) (Auto) 59.4 % Lymphocytes (%) (Auto) 21.1 % Monocytes (%) (Auto) 12.9 % Eosinophils (%) (Auto) 2.3 % Basophils (%) (Auto) 0.2 % Neutrophils # (Auto) 3.36 1.4-6.5 K/uL Lymphocytes # (Auto) 1.19 1.2-3.4 K/uL Monocytes # (Auto) 0.73 0.11-0.59 K/uL Eosinophils # (Auto) 0.13 0-0.5 K/uL Basophils # (Auto) 0.01 0-0.2 K/uL RDW Standard Deviation 40.1 36.4-46.3 fL RDW Coefficient of Variation 15.1 11.5-14.5 % Immature Granulocyte % (Auto) 4.1 % Immature Granulocyte # (Auto) 0.23 0.00-0.02 K/uL Toxic Granulation 2+ Sodium Level 137 136-145 mmol/L Potassium Level 3.4 3.5-5.1 mmol/L Chloride Level 94 98-107 mmol/L Carbon Dioxide Level 32 21-32 mmol/L Anion Gap 11.0 3-11 mmol/L Blood Urea Nitrogen 11 7-18 mg/dl Creatinine 1.50 0.60-1.40 mg/dl Est Creatinine Clear Calc Drug Dose 57.0 ml/min Estimated GFR () 62.0 Estimated GFR (Non- 53.5 BUN/Creatinine Ratio 7.4 10-20 Random Glucose 243 70-99 mg/dl Calcium Level 8.5 8.5-10.1 mg/dl Phosphorus Level 3.3 2.5-4.9 mg/dl Magnesium Level 1.3 1.8-2.4 mg/dl Total Bilirubin 0.5 0.2-1 mg/dl Direct Bilirubin 0.1 0-0.2 mg/dl Aspartate Amino Transf (AST/SGOT) 12 15-37 U/L Alanine Aminotransferase (ALT/SGPT) 10 12-78 U/L Alkaline Phosphatase 103 45-117 U/L Troponin I < 0.015 0-0.045 ng/ml Total Protein 7.3 6.4-8.2 gm/dl Albumin 3.1 3.4-5.0 gm/dl Lipase 37 73-393 U/L Bedside Lactic Acid Venous 1.02 0.90-1.70 mmol/L Impression Assessment and Plan INTRACTABLE NAUSEA /VOMITING SECONDARY TO CHEMO HX OF GASTROPARESIS S/P GASTRIC STIMULATOR was treated with Amend /Phenergan /Zofran /Reglan GI eval requested CT abdomen /pelvis ordered for evaluation of obstruction /metastatic disease NON SMALL CELL LUNG CA: recently Diagnosed S/P lung resection in [place] on Chemo tx follows with Dr Amanda scheduled to have next Chemo tx Saturday pt presents with worsening of functional status /failure to thrive Dr Amanda consulted PANCYTOPENIA due to chemo given Neupogen in last admission resolved IVAN ON CKD STAGE 3 : baseline cr 1.2-1.4 due to N/V poor PO intake IV hydration follow PRP HYPOMAGNESIA : due to GI loss replaced , follow lytes DIABETIC NEUROPATHY : worsening of symptom due to Malignancy cont Keppra /Nucynta/Fentanyl patch IV Dilaudid ordered PRN ( unable to take PO ) Pain management consulted -pt is known to them form previous consult INSULIN DEPENDENT TYPE 2 DM : insulin SSI DVT PROPHYLAXIS moderate to high risk sub q Lovenox FULL CODE DISPOSITION ; to be determined pt is showing evidence of failure to thrive intractable nausea /vomiting , on Chemo thx of Lung CA unable to manage at home PT/OT eval requested Social service consulted for discharge planning Level of Care Med/Surg Resuscitation Status FULL RESUSCITATION VTE Prophylaxis VTE Risk Assessment Done? Y/N: Yes Risk Level: Moderate Given or contraindicated: Unfractionated heparin SQ Note In my clinical judgment this beneficiary meets acute admission criteria, established by [facility], that includes being hospitalized through two midnights. Additional Copies To Bran Burgess M.D.
[2016-08-15] MEDS ORDERED: EPINEPHRINE ADULT AUTO-INJECT 0.3 MG SYR IM PRN (03:00)
[2016-08-15] MEDS ORDERED: METOCLOPRAMIDE HCL 10 MG TAB PO PRN (03:00)
[2016-08-15] MEDS ORDERED: HYDROmorphone INJ 2 MG/ML SYR/VIAL IV PRN ×3 (03:15→16:00)
[2016-08-15] MEDS ORDERED: IV FLUIDS COMPLETED PRN (03:15)
[2016-08-15] MEDS ORDERED: ONDANSETRON INJ 6 MG in DEXTROSE 5% 50ML 50 ML IV PRN (03:15)
[2016-08-15] MEDS ORDERED: HYDROmorphone INJ 1 MG/ML SYR IV PRN ×2 (03:15→07:00)
[2016-08-15] MEDS ORDERED: LORAZEPAM 2 MG/ML 1 ML VIAL IV PRN (03:19)
[2016-08-15] MEDS ORDERED: FENTANYL 100 MCG/HR TDSY TD SCH (03:30)
[2016-08-15] MEDS ORDERED: POLYETHYLENE (MIRALAX) 17 GM PACK PO PRN (03:30)
[2016-08-15] MEDS ORDERED: LORAZEPAM INJ 0.5 MG in SYRINGE 0.75 ML IV PRN (03:30)
[2016-08-15] MEDS ORDERED: LORAZEPAM INJ 0.5 MG in SYRINGE 0.75 ML IV ONE (03:30)
[2016-08-15] MEDS: NSS + 20MEQ KCL 1000ML 1,000 ML IV SCH ×3 (03:40→21:31)
[2016-08-15] MEDS: TAPENTADOL HCL 50 MG TAB PO PRN ×3 (03:53→18:00)
[2016-08-15 05:50] LABS: HEMATOCRIT 25.7 % (42-52); MEAN CELL VOLUME 79.3 fL (80-100); MEAN CORPUSCULAR HEMOGLOBIN 28.4 pg (25-34); MEAN CORPUSCULAR HGB CONC 35.8 g/dl (32-36); MEAN PLATELET VOLUME 8.2 fL (7.4-10.4); PLATELET COUNT 178 K/uL (130-400); RED BLOOD COUNT 3.24 M/uL (4.7-6.1); WHITE BLOOD COUNT 4.92 K/uL (4.8-10.8)
[2016-08-15 06:03] LABS: INR 1.1 (0.9-1.1); PROTHROMBIN TIME (PATIENT) 11.4 SECONDS (9.0-12.0)
[2016-08-15 06:11] LABS: BUN/CREATININE RATIO 8.2 (10-20); CALCIUM 7.8 mg/dl (8.5-10.1); CREATININE 1.3 mg/dl (0.60-1.40); MAGNESIUM 1.7 mg/dl (1.8-2.4); POTASSIUM 3.6 mmol/L (3.5-5.1)
[2016-08-15] MEDS ORDERED: MAGNESIUM SULFATE 1GM / D5W 1 GM in PREMIXED IN D5W 100 ML IV SCH (06:45)
[2016-08-15] MEDS ORDERED: DEXAMETHASONE 4 MG TAB PO SCH (08:00)
[2016-08-15] MEDS: GABAPENTIN 600 MG TAB PO SCH ×3 (08:12→20:45)
[2016-08-15] MEDS: METOPROLOL TARTRATE 25 MG TAB PO SCH ×2 (08:12→20:45)
[2016-08-15] MEDS: MAGNESIUM CHLORIDE 64MG DELAYED REL TAB PO SCH ×2 (08:12→20:45)
[2016-08-15] MEDS: AMLODIPINE BESYLATE 5 MG TAB PO SCH (08:12)
[2016-08-15] MEDS: MULTIVITAMIN TAB PO SCH (08:13)
[2016-08-15] MEDS: LEVETIRACETAM 250 MG TAB PO SCH ×2 (08:13→20:46)
[2016-08-15] MEDS: CHECK FENTANYL PATCH PLACEMENT SCH ×2 (08:14→15:30)
[2016-08-15] MEDS: INSULIN HUMAN REGULAR SC SCH ×5 (08:17→23:40)
[2016-08-15] MEDS: HYDROmorphone INJ 2 MG/ML SYR/VIAL IV PRN ×2 (08:29→10:55)
[2016-08-15] MEDS: PROMETHAZINE HCL INJ 12.5 MG in SODIUM CHLORIDE 0.9% 50ML 50 ML IV PRN ×2 (08:36→15:41)
[2016-08-15] MEDS ORDERED: ENOXAPARIN 40 MG/0.4 ML SYR SQ SCH (09:00)
[2016-08-15] MEDS ORDERED: FOSAPREPITANT DIMEGLUMINE INJ 150 MG in SODIUM CHLORIDE 0.9% 150ML 145 ML IV SCH (12:00)
--- NOTE | 2016-08-15 12:20 | Progress Note ---
Medicine Progress Note Date & Time of Visit: Aug 15, 2016 at 10:48. (Idalia Watkins PA-C) Subjective Patient seen and examined after being admitted overnight for intractable nausea and vomiting and worsening generalized body pain. Pt was recently admitted to [facility] from 08/05/16-08/13/16 for intractable N/V thought secondary thought to be secondary to chemo, gastroparesis, chronic narcotic use for neuropathy. During last admission pt was seen by GI, oncology, and pain management. During last admission was treated with Phenergan, Zofran, Reglan, and Emend. For pain control, he Keppra and Nucynta were added and he was continued on Fentanyl patch , PO Dilaudid and gabapentin.Pt states after going home he began vomiting again 4 hours after discharge. He was not keeping down food, liquids, meds. He reports 10 lb weight loss during course of illness. He reports 10-12 episodes of vomiting overnight. States emesis is foam with "black stringy" material. He just ate breakfast of broth and pudding and continues to have nausea. He received Phenergan this morning. During vomiting episodes he has epigastric discomfort, but currently no abdominal pain. Has had some reflux. Last BM was normal yesterday. He states symptoms are the same as prior admission. He also reports generalized body pain rated 6/10. Received IV Dilaudid this morning which he states wore off. He was having chills and sweats which are now resolved. Pt denies chest pain, shortness of breath, diarrhea, constipation, hematochezia, melena, urinary changes. (Idalia Watkins PA-C) Objective Last 8 Hrs Date Time Temp Pulse Resp B/P Pulse Ox O2 Delivery O2 Flow Rate FiO2 08/15/16 08:00 36.8 86 18 159/89 95 Room Air 08/15/16 05:15 162/95 08/15/16 04:14 36.8 86 18 167/100 97 Room Air 08/15/16 03:23 36.8 86 18 167/100 97 Room Air Physical Exam: General-alert cooperative 50 year old male, sitting on side of bed finishing liquid breakfast tray, not in distress Eyes-anicteric ENT-hearing grossly intact Neck-trachea midline Lungs-CTA bilaterally, no wheezes, crackles, rhonchi Heart-RRR, no murmur Abdomen-soft, nontender, normal bowel sounds Extremities- no deformity, no edema or calf tenderness Neuro-alert and oriented x 3, normal affect, grossly nonfocal Laboratory Results: Last 24 Hours Test 08/14/16 23:50 08/15/16 00:03 08/15/16 05:28 08/15/16 07:49 White Blood Count 5.65 K/uL 4.92 K/uL Red Blood Count 3.92 M/uL 3.24 M/uL Hemoglobin 11.1 g/dL 9.2 g/dL Hematocrit 30.3 % 25.7 % Mean Corpuscular Volume 77.3 fL 79.3 fL Mean Corpuscular Hemoglobin 28.3 pg 28.4 pg Mean Corpuscular Hemoglobin Concent 36.6 g/dl 35.8 g/dl Platelet Count 199 K/uL 178 K/uL Mean Platelet Volume 8.1 fL 8.2 fL Neutrophils (%) (Auto) 59.4 % Lymphocytes (%) (Auto) 21.1 % Monocytes (%) (Auto) 12.9 % Eosinophils (%) (Auto) 2.3 % Basophils (%) (Auto) 0.2 % Neutrophils # (Auto) 3.36 K/uL Lymphocytes # (Auto) 1.19 K/uL Monocytes # (Auto) 0.73 K/uL Eosinophils # (Auto) 0.13 K/uL Basophils # (Auto) 0.01 K/uL RDW Standard Deviation 40.1 fL 41.5 fL RDW Coefficient of Variation 15.1 % 15.1 % Immature Granulocyte % (Auto) 4.1 % Immature Granulocyte # (Auto) 0.23 K/uL Toxic Granulation 2+ Sodium Level 137 mmol/L 139 mmol/L Potassium Level 3.4 mmol/L 3.6 mmol/L Chloride Level 94 mmol/L 100 mmol/L Carbon Dioxide Level 32 mmol/L 32 mmol/L Anion Gap 11.0 mmol/L 7.0 mmol/L Blood Urea Nitrogen 11 mg/dl 11 mg/dl Creatinine 1.50 mg/dl 1.30 mg/dl Est Creatinine Clear Calc Drug Dose 57.0 ml/min 65.8 ml/min Estimated GFR () 62.0 73.7 Estimated GFR (Non- 53.5 63.6 BUN/Creatinine Ratio 7.4 8.2 Random Glucose 243 mg/dl 230 mg/dl Calcium Level 8.5 mg/dl 7.8 mg/dl Phosphorus Level 3.3 mg/dl Magnesium Level 1.3 mg/dl 1.7 mg/dl Total Bilirubin 0.5 mg/dl Direct Bilirubin 0.1 mg/dl Aspartate Amino Transf (AST/SGOT) 12 U/L Alanine Aminotransferase (ALT/SGPT) 10 U/L Alkaline Phosphatase 103 U/L Troponin I < 0.015 ng/ml Total Protein 7.3 gm/dl Albumin 3.1 gm/dl Lipase 37 U/L Bedside Lactic Acid Venous 1.02 mmol/L Prothrombin Time 11.4 SECONDS Prothromb Time International Ratio 1.1 Bedside Glucose 208 mg/dl (Idalia Watkins, PARoma) Assessment & Plan INTRACTABLE NAUSEA AND VOMITING Possibly secondary to gastroparesis s/p gastric stimulator May have component of gastritis CT a/p ordered by admitting provider- still pending On Reglan, PRN Phenergan and Zofran Recently admitted with similar symptoms and improved with Emend GI consulted; discussed with GI provider Emend and IV Protonix BID ordered by GI Advanced to regular diet as tolerated per GI Check KUB CHRONIC PAIN Due to diabetic polyneuropathy Was seen by pain management last admission Currently utilizing IV Dilaudid PRN instead of home PO Dilaudid Continued on Fentanyl patch, Nucynta, Keppra, gabapentin Still having pain on current regimen Consult pain management HYPERTENSION BP up to 180s systolic on presentation -> given dose of labetalol -> improved to 150s-160s Continued on amlodipine (dose increased from 5 to 10 mg qam) and metoprolol PRN clonidine HYPOKALEMIA/ HYPOMAGNESEMIA Secondary to GI loss Replacement given Monitor electrolytes ANEMIA OF CHRONIC DISEASE Hg is 11.1 ->9.2 (may be dilutional from IVF's); stable from last discharge ( was 8.4 after 1 unit transfused) Continue to monitor H/H CKD STAGE III Had IVAN on recent admission; likely prerenal from poor PO intake/ emesis Creatinine continues to trend down- 1.3 today; baseline ~0.9-1.0 Continue IVF's Monitor renal function STAGE III NON SMALL CELL LUNG CANCER S/p lobectomy 05/25/16 at [facility] Currently on chemo last treatment 3/24/[address] Amanda INSULIN DEPENDENT DM TYPE 2 Recent A1c = 10.4 on 08/06/16 Lantus and Insulin sliding scale coverage BSG's running in low 200s -> high 100s DVT PROPHYLAXIS Change to SCD due to anemia CODE STATUS Full code per patient's preference on recent admission DISPOSITION Follows with Dr. Burgess for primary care Patient seen in collaboration with Dr. Car. Please see his addendum. Current Inpatient Medications: Current Inpatient Medications Medications (Trade) Dose Ordered Sig/Cal Route Start Time Stop Time Status Last Admin Dose Admin Enoxaparin Sodium (Lovenox Inj) 40 mg Q24H SQ 08/15/16 09:00 09/14/16 08:59 08/15/16 08:13 40 MG Acetaminophen (Tylenol Tab) 650 mg Q4H PRN PO 08/15/16 02:45 09/14/16 02:44 Al Hydrox/Mg Hydrox/Simethicone (Maalox Max Susp) 15 ml Q4H PRN PO 08/15/16 02:45 09/14/16 02:44 Magnesium Hydroxide (Milk Of Magnesia Susp) 30 ml Q6H PRN PO 08/15/16 02:45 09/14/16 02:44 Polyethylene (Miralax Powder Packet) 17 gm DAILY PRN PO 08/15/16 03:30 09/14/16 03:29 Zolpidem Tartrate (Ambien Tab) 5 mg HSZ PRN PO 08/15/16 02:45 09/14/16 02:44 Ondansetron HCl (Zofran Inj) 4 mg Q6H PRN IV 08/15/16 02:45 09/14/16 02:44 Insulin Human Regular (novoLIN-R) SLIDING SCALE IF C... ACHS SC 08/15/16 06:30 09/14/16 06:59 08/15/16 08:17 2 UNITS Glucose (Glucose 40% Gel) 15-30 GRAMS 15 GRAMS... UD PRN PO 08/15/16 02:45 09/14/16 02:44 Glucose (Glucose Chew Tab) 4-8 Tablets 4 Tabl... UD PRN PO 08/15/16 02:45 09/14/16 02:44 Dextrose (Dextrose 50% 50ML Syringe) 25-50ML OF 50% DW IV FOR... UD PRN IV 08/15/16 02:45 09/14/16 02:44 Glucagon 1 mg 1 mg UD PRN SQ 08/15/16 02:45 09/14/16 02:44 Potassium Chloride/Sodium Chloride (Nss + 20meq KCl 1000ml) 1,000 ml @ 100 mls/hr Q10H IV 08/15/16 03:30 09/14/16 03:29 08/15/16 08:18 100 MLS/HR Amlodipine Besylate (Norvasc Tab) 10 mg QAM PO 08/15/16 08:00 09/14/16 08:59 08/15/16 08:12 10 MG Dexamethasone (Decadron Tab) 16 mg BID PO 08/15/16 08:00 09/14/16 08:59 08/15/16 08:13 16 MG Epinephrine (Epipen) 0.3 mg UD PRN IM 08/15/16 03:00 09/14/16 02:59 Gabapentin (Neurontin Tab) 600 mg TID PO 08/15/16 08:00 09/14/16 08:59 08/15/16 08:12 600 MG Insulin Glargine (Lantus Solostar Pen) 25 unit QPM SC 08/15/16 21:00 09/14/16 20:59 Levetiracetam (Keppra Tab) 750 mg BID PO 08/15/16 08:00 09/14/16 08:59 08/15/16 08:13 750 MG Magnesium Chloride (Slow-Mag Tab) 64 mg BID PO 08/15/16 08:00 09/14/16 08:59 08/15/16 08:12 64 MG Metoclopramide HCl (Reglan Tab) 10 mg ACHS PRN PO 08/15/16 03:00 09/14/16 02:59 Metoprolol Tartrate (Lopressor Tab) 25 mg BID PO 08/15/16 08:00 09/14/16 08:59 08/15/16 08:12 25 MG Tapentadol (Nucynta Tab) 75 mg Q4H PRN PO 08/15/16 03:00 08/29/16 02:59 08/15/16 03:53 75 MG Multivitamins 1 tab 1 tab QAM PO 08/15/16 08:00 5/12/17 07:59 08/15/16 08:13 1 TAB Promethazine HCl 12.5 mg/Sodium Chloride 50.5 ml @ 204 mls/hr Q6H PRN IV 08/15/16 03:15 09/14/16 03:14 08/15/16 08:36 204 MLS/HR Ondansetron HCl/ Dextrose (Zofran Inj/D5 50ml) 53 ml @ 200 mls/hr Q6H PRN IV 08/15/16 03:15 09/14/16 03:14 Lorazepam (Ativan Inj) 0.5 mg Q4H PRN IV 08/15/16 03:19 09/14/16 03:18 Miscellaneous 1 ea 1 ea PRN PRN N/A 08/15/16 03:15 08/15/17 03:14 Lorazepam/Syringe (Ativan Inj/ Syringe) 1 ml @ 1 mls/min Q4H PRN IV 08/15/16 03:30 09/14/16 03:29 Miscellaneous Information (Check Fentanyl Patch Placement) 1 ea QS N/A 08/15/16 08:00 09/14/16 07:59 08/15/16 08:14 1 EA Fentanyl (Duragesic Patch) 100 mcg Q2D@0800 TD 08/16/16 08:00 08/30/16 07:59 Miscellaneous (Fentanyl Patch Remove & Waste) 1 ea Q2D@0759 N/A 08/16/16 07:59 09/15/16 07:58 Hydromorphone HCl (Dilaudid Inj) 1 mg Q2H PRN IV 08/15/16 07:00 08/29/16 06:59 Hydromorphone HCl (Dilaudid Inj) 2 mg Q2H PRN IV 08/15/16 08:00 08/29/16 07:59 08/15/16 08:29 2 MG (Idalia Watkins PA-C) ATTENDING ADDENDUM care coordinated with CHARLI Watkins please refer to her notes for full details, I agree with her notes patient seen and examined, records reviewed by myself as well on exam, patient seen sitting up in bedside chair, appears comfortable , at bedside reports excruciating pain on his extremities, leading to his groin still has intermittent nausea no abdominal pain ,chest pain, dyspnea, dizziness, headche no other symptoms VS noted and reviewed oriented x 3 , not in distress, speaks in sentences with no effort nor accessory muscle use normal rate, regular rhythm, no murmurs clear breath sounds bilaterally non distended, soft, nontender no neuro deficits Hg 9.2 Crea 1.3 ASSESSMENT/PLAN> NAUSEA/VOMITING lung cancer on chemo, chronic narcotic use, history of gastroparesis KUB (+) moderate fecal retention emend , protonix add Senokot S CHRONIC PAIN SYNDROME DM NEUROPATHY patient reports excruciating generalized pain Dilaudid IV q6h, not relieving pain at all as per patient will increase to q2h for now Pain Mgt Consult pending other diagnoses and plan of care as per CHARLI Watkins's notes discussed plan of care with patient and they are both agreeable and comfortable with plan of care Antonino Car MD (Antonino Car MD)
--- NOTE | 2016-08-15 14:14 | Gastrointestinal Consultation ---
Gastrointestinal Consultation Date of Consultation: Aug 15, 2016 Attending Physician: Antonino Car Consulting Physician: Alfredito Major Reason for Consultation: Nausea/Vomiting History of Present Illness Patient is a 50 year old male w PMHx of non small cell lung ca s/p L lobectomy currently on Cisplatin/Pemetrex chemo who presented to ED w c/o nausea, vomiting. He also has hx of gastroparesis, s/p gastric stimulator placement last March and states that since the stimulator was placed, his gastroparesis had been well controlled. He had 2 cycles of chemo and notes that he had bad n/v, neuropathic pain reactions after each cycle. He was in fact hospitalized earlier this month w similar n/v symptoms, tried on Emend which pt states resolved his symptoms. His last chemo was 07/27. He denies any abd pain, also bowels have been moving regularly, no issues w constipation, diarrhea or blood in stools. No imaging studies done during this hospitalization stay. Of note, had multiple EGDs (last one 01/26/15) : hx of reflux esophagitis, gastritis. He also mentioned hx of Crohn's but never on any medications for this. In our system, noted last colonoscopy in 2012 - chronic colitis w cryptitis noted, TA and hyperplastic polyps. He had CT enterography after colonoscopy in 2012 which was normal. He mentioned few more colonoscopies since 2012 at [facility] but we do not have records. Past Medical/Surgical History Medical Problems: (1) Dehydration Status: Acute (2) Failure of outpatient treatment Status: Acute (3) HTN (hypertension) Status: Chronic (4) Hypomagnesemia Status: Acute (5) Intractable vomiting Status: Acute Past Medical History: See above, DM II, diabetic neuropathy, HTN Past Surgical History: L side lobectomy for lung ca Cholecystectomy T&A Knee replacement Family History Sister and Son - Crohns Social History Smoking Status: Former Smoker Drug Use: none Marital Status: Allergies Coded Allergies: BEE STING (Verified Allergy, Mild, SWELLING AT SITE, SOB, 08/15/16) Penicillins (Verified Allergy, Unknown, "SINCE ", 08/15/16) Current Medications Home Meds and Scripts Medications Dose Route/Sig Max Daily Dose Days Date Category Dose Instructions Ondansetron HCl (Ondansetron) 4 Mg Tab 8 Mg PO Q8 PRN 08/15/16 Reported Amlodipine Besylate 5 Mg Tab 5 Mg PO QAM 30 08/13/16 Rx Keppra (Levetiracetam) 750 Mg Tab 750 Mg PO BID 08/13/16 Rx Metoclopramide HCl 10 Mg Tab 10 Mg PO ACHS PRN 10 08/13/16 Rx Mag64 (Magnesium Chloride) 64 Mg Tabcr 64 Mg PO BID 30 08/13/16 Rx Nucynta (Tapentadol HCl) 50 Mg Tab 75 Mg PO Q4H PRN 10 08/13/16 Rx Lopressor (Metoprolol Tartrate) 25 Mg Tab 25 Mg PO BID 30 08/13/16 Rx Dilaudid (Hydromorphone Hcl) 8 Mg Tab 1 Tab PO TID PRN 10 08/13/16 Rx Duragesic (Fentanyl) 50 Mcg Tdsy 100 Mcg TD Q48HR 30 08/13/16 Rx LAST PLACED ON 08/04/16 at 1300 Decadron (Dexamethasone) 4 Mg Tab 4 Tab PO BID 2 08/05/16 Reported Only on day of and day after chemo Neurontin (Gabapentin) 300 Mg Cap 600 Mg PO TID 08/05/16 Reported Aspirin Ec (Aspirin) 81 Mg Tab 81 Mg PO QAM 08/05/16 Reported Lantus (Insulin Glargine) 100 Unit/Ml Inj 25 SC QPM 08/05/16 Reported Tylenol (Acetaminophen) 500 Mg Tab 2 Tab PO TID PRN 2 08/05/16 Reported Phenergan (Promethazine Hcl) 12.5 Mg Tab 2 Tabs PO Q4H PRN 08/05/16 Reported Humalog (Insulin Human Lispro) 1 Ea Inj 08/05/16 Reported 1 unit for every 10 greater than 120 Epipen (Epinephrine) 0.3 Mg/0.3 Ml Inj 0.3 Mg IM UD PRN 04/16/13 Reported Multivitamins (Multiple Vitamin) 1 Cap Cap 1 Tab PO QAM 04/16/13 Reported Review of Systems Constitutional: No chills, No fever Respiratory: No cough, No shortness of breath Cardiac: No chest pain Abdomen: + nausea, + vomiting, No GI bleeding, No constipation, No diarrhea, No pain Skin: No itch, No jaundice, No rash Physical Exam Date Time Temp Pulse Resp B/P Pulse Ox O2 Delivery O2 Flow Rate FiO2 08/15/16 11:37 36.8 85 18 158/92 91 Room Air 08/15/16 08:10 Room Air 08/15/16 08:00 36.8 86 18 159/89 95 Room Air 08/15/16 05:15 162/95 08/15/16 04:14 36.8 86 18 167/100 97 Room Air 08/15/16 03:23 36.8 86 18 167/100 97 Room Air 08/15/16 02:45 150/75 97 Room Air 08/15/16 02:31 86 15 08/15/16 02:30 145/73 08/15/16 02:19 155/82 08/15/16 02:13 85 08/15/16 02:08 180/104 08/15/16 01:35 94 18 183/101 98 Room Air 08/14/16 23:41 36.7 101 20 172/104 99 Room Air General Appearance: WD/WN, no apparent distress Eyes: normal inspection, PERRL, EOMI Neck: supple, no JVD, trachea midline Respiratory/Chest: normal breath sounds, no respiratory distress, no accessory muscle use Cardiovascular: regular rate, rhythm, no gallop, no murmur Abdomen: normal bowel sounds, non tender, soft Extremities: normal inspection, no pedal edema, no calf tenderness Neurologic/Psych: alert, normal mood/affect, oriented x 3 Skin: normal color, no jaundice, no rash Laboratory Results Last 24 Hours Test 08/14/16 23:50 08/15/16 00:03 08/15/16 05:28 08/15/16 07:49 White Blood Count 5.65 K/uL 4.92 K/uL Red Blood Count 3.92 M/uL 3.24 M/uL Hemoglobin 11.1 g/dL 9.2 g/dL Hematocrit 30.3 % 25.7 % Mean Corpuscular Volume 77.3 fL 79.3 fL Mean Corpuscular Hemoglobin 28.3 pg 28.4 pg Mean Corpuscular Hemoglobin Concent 36.6 g/dl 35.8 g/dl Platelet Count 199 K/uL 178 K/uL Mean Platelet Volume 8.1 fL 8.2 fL Neutrophils (%) (Auto) 59.4 % Lymphocytes (%) (Auto) 21.1 % Monocytes (%) (Auto) 12.9 % Eosinophils (%) (Auto) 2.3 % Basophils (%) (Auto) 0.2 % Neutrophils # (Auto) 3.36 K/uL Lymphocytes # (Auto) 1.19 K/uL Monocytes # (Auto) 0.73 K/uL Eosinophils # (Auto) 0.13 K/uL Basophils # (Auto) 0.01 K/uL RDW Standard Deviation 40.1 fL 41.5 fL RDW Coefficient of Variation 15.1 % 15.1 % Immature Granulocyte % (Auto) 4.1 % Immature Granulocyte # (Auto) 0.23 K/uL Toxic Granulation 2+ Sodium Level 137 mmol/L 139 mmol/L Potassium Level 3.4 mmol/L 3.6 mmol/L Chloride Level 94 mmol/L 100 mmol/L Carbon Dioxide Level 32 mmol/L 32 mmol/L Anion Gap 11.0 mmol/L 7.0 mmol/L Blood Urea Nitrogen 11 mg/dl 11 mg/dl Creatinine 1.50 mg/dl 1.30 mg/dl Est Creatinine Clear Calc Drug Dose 57.0 ml/min 65.8 ml/min Estimated GFR () 62.0 73.7 Estimated GFR (Non- 53.5 63.6 BUN/Creatinine Ratio 7.4 8.2 Random Glucose 243 mg/dl 230 mg/dl Calcium Level 8.5 mg/dl 7.8 mg/dl Phosphorus Level 3.3 mg/dl Magnesium Level 1.3 mg/dl 1.7 mg/dl Total Bilirubin 0.5 mg/dl Direct Bilirubin 0.1 mg/dl Aspartate Amino Transf (AST/SGOT) 12 U/L Alanine Aminotransferase (ALT/SGPT) 10 U/L Alkaline Phosphatase 103 U/L Troponin I < 0.015 ng/ml Total Protein 7.3 gm/dl Albumin 3.1 gm/dl Lipase 37 U/L Bedside Lactic Acid Venous 1.02 mmol/L Prothrombin Time 11.4 SECONDS Prothromb Time International Ratio 1.1 Bedside Glucose 208 mg/dl Test 08/15/16 11:46 Bedside Glucose 187 mg/dl Impression Patient is a 50 year old male w intractable nausea, vomiting. He has hx of gastroparesis and s/p gastric stimulator placement. He reports since the stimulator was placed, n/v much improved, though noticed symptoms flare after his chemo cycles. Received Cisplastin last on 07/27. He had good resolution of his n/v at his last hospitalization w Emend. Plan - KUB today - Protonix 40mg IV BID - Add Emend 150mg IV today to his antiemetic regimen. Recommend using Emend 125mg PO x 1 on day 1 then 80mg PO qAM on days 2-3 of chemotherapy. - Advanced to soft diet per pt's request to try.
[2016-08-15 14:41] LABS: CALCIUM 9.2 mg/dl (8.5-10.1)
--- NOTE | 2016-08-15 14:54 | DIAGNOSTIC IMAGING REPORT ---
KUB CLINICAL HISTORY: Nausea and vomiting. FINDINGS: 2 AP supine abdominal radiographs are obtained. Correlation is made with fluoroscopic small bowel study dated 08/11/2013. There is a nonobstructed abdominal bowel gas pattern. Moderate colonic fecal retention is observed. No evidence of intraperitoneal free air is seen on these supine images. Cholecystectomy clips are identified in the right upper quadrant. There are numerous pelvic phleboliths. A gastric stimulator device projects over the left mid abdomen. The bony structures appear intact. IMPRESSION: Nonobstructed abdominal bowel gas pattern noting moderate colonic fecal retention. Electronically signed by: Russell Ty M.D. 08/15/2016 2:52 PM Dictated Date/Time: 08/15/2016 2:51 PM
--- NOTE | 2016-08-15 15:20 | DIAGNOSTIC IMAGING REPORT ---
CT SCAN OF THE ABDOMEN AND PELVIS WITHOUT IV CONTRAST CLINICAL HISTORY: Nausea and vomiting. History of lung cancer. COMPARISON STUDY: Abdominal radiograph dated 08/15/2016. TECHNIQUE: CT scan of the abdomen and pelvis is performed from the lung bases to the proximal femora. Images are reviewed in the axial, sagittal, and coronal planes. IV contrast was not administered for this examination as per the referring clinician. Note that the examination was performed and significant suboptimal fashion without oral and IV contrast. Automated dose control exposure was utilized. CT DOSE: 797.19 mGycm FINDINGS: Lung bases: The heart is normal in size and there is trace pericardial effusion. There are coronary artery calcifications. There is a moderate left pleural effusion with associated atelectasis. No airspace consolidation is identified typical for pneumonia. Liver: The unenhanced liver is normal in size, contour, and attenuation. There is no intrahepatic biliary ductal dilatation. Gallbladder: Surgically absent noting clips in the gallbladder fossa. Spleen: Normal in size and attenuation. Pancreas: The unenhanced pancreas is atrophic and grossly unremarkable. Adrenal glands: Unremarkable. Kidneys: The unenhanced kidneys are normal in size and without hydronephrosis. There are no renal calculi identified. There is no evidence of contour deforming renal mass lesion. Abdominal vasculature: The abdominal aorta is normal in course and caliber. Stomach and bowel: There is a tiny hiatal hernia. The stomach and duodenum are normal in configuration. A gastric stimulator device is present in the left lower quadrant abdominal wall. Leads terminate over the distal stomach. There is no bowel obstruction. The appendix is short and thick, measuring 11 mm in diameter. This is best seen on axial image #305. Fluid fills the appendiceal lumen. There is no periappendiceal inflammation and acute appendicitis is considered extremely unlikely. Peritoneum: There is trace free fluid in the pelvis. No intraperitoneal free air is seen. Lymphadenopathy: None. Pelvic viscera: The prostate gland is mildly enlarged. The bladder wall appears mildly thickened and trabeculated suggesting the sequelae of chronic outlet obstruction. The seminal vesicles are normal as imaged. Skeletal structures: There is mild lumbar sacral spondylosis. No lytic or blastic lesions are seen. A bone island is noted in the left femoral head. Soft tissues: There is body wall edema. IMPRESSION: 1. Significantly suboptimal examination without oral and IV contrast. 2. There is no bowel obstruction. 3. There is a moderate left pleural effusion with left basilar atelectasis. 4. There is evidence of fluid overload including body wall edema and trace free fluid in the pelvis. 5. The appendix appears short and thick, measuring 11 mm in diameter. There is no convincing evidence of acute appendicitis. 6. Additional changes as above. Electronically signed by: Russell Ty M.D. 08/15/2016 3:18 PM Dictated Date/Time: 08/15/2016 3:09 PM
[2016-08-15] MEDS ORDERED: PHARMACY GLYCEMIC MGMT CONSULT PRN (18:33)
--- NOTE | 2016-08-15 19:26 | Pharmacy Progress Note ---
Glycemic Control Intl Consult Date of Service Aug 15, 2016. Scope Glycemic Pharmacist consulted by Holly Watkins PA-C on 08/15/16 for glycemic control and to write orders per [facility] inpatient glycemic control protocol Objective Weight (Kilograms): 81.600 Accuchecks BSG (last 24hrs): Test 08/14/16 23:50 08/15/16 05:28 08/15/16 07:49 08/15/16 11:46 Random Glucose 243 mg/dl (70-99) 230 mg/dl (70-99) Bedside Glucose 208 mg/dl (70-99) 187 mg/dl (70-99) Test 08/15/16 16:45 Bedside Glucose 307 mg/dl (70-99) HbA1c Item Value Date Time Hemoglobin A1c 10.4 % H 08/06/16 0648 Recent Pertinent Medications Outpatient Anti-diabetic Regimen: * Lantus 25 units SQ HS * Humalog per scale [1 units for every 10 above 120mg/dl] The patient is currently receiving: * Basal insulin: Lantus 25 units every 24 hours given at bedtime * Correctional Insulin: REGULAR INSULIN Correction per scale ACHS Goal Range: Low 100 mg/dL - High 140 mg/dL Correction Factor: 50 mg/dL/unit * Prandial insulin: Per carb ratio of 1 unit per -- grams CHO consumed Risk Factors for Insulin Resistance: * Steroids * Diet * Baseline poor control/insulin resistance Assessment & Plan ASSESSMENT: * 50yo T2DM male with poor outpatient control per recent A1c. Although A1c may be unreliable d/t CKD & chemo * Pt with hyperglycemia, BSGs trending upwards d/t receiving high dose PO steroids (dexamethasone 16mg PO BID) * This outpatient medication is only intended to be taken on the day of and the day after chemo but was ordered on admission. * Current insulin orders are basal + correctional insulin only --> prandial insulin coverage is missing. * Will add CR. Pt most likely needs prandial coverage based on high degree of insulin resistance (elevated A1c) and steroid use (steroids have their most profound effect on post-prandial hyperglycemia). * Basal insulin dosing seems reasonable. It is about equivalent to weight/st = 2 dosing given once daily * Pt is ordered Regular insulin instead of NovoLog for bolus insulin orders. RTC use of regular insulin can lead to staking d/t its longer duration of action than NovoLog. Additionally, post-prandial coverage may not be as good as NovoLog d/t its slow onset. Hesitant to change to NovoLog since patient has already been charged for a vial of regular. If BSGs do not improve with adjustment of parameters may consider changing to NovoLog. * ADA & AACE recommend a goal blood sugar range 140-180 mg/dl for the majority of critically ill & non-critically ill patients. However, more stringent targets may be selected in individual cases. Will utilize more stringent target of 120-140mg/dl base on age. Will keep the "low" end of the goal range elevated to help prevent hypo PLAN FOR INPATIENT GLYCEMIC CONTROL: * Holding outpatient dexamethasone PO order * This is only to be taken the day of and after chemo (last chemo 07/27/16) * Continue Basal insulin with Lantus 25 units SQ HS * Regular insulin per scale ACHS or Q6hrs while NPO * Goal Range: Low 120 mg/dL - High 140 mg/dL * Correction Factor: 30 mg/dL/unit * Nutritional / Prandial insulin per carb ratio of 1 unit per 10 grams CHO consumed * Please note that the plan above was derived based on current level of insulin resistance and hospital stress. These recommendations are appropriate for inpatient admission only. Plan of care upon discharge will need to be reassessed to avoid potential outpatient hypo/hyperglycemia. Thank you.
[2016-08-15] MEDS: PANTOprazole INJ 40 MG in SYRINGE 0 ML IV SCH (20:46)
[2016-08-15] MEDS: HYDROmorphone INJ 1 MG/ML SYR IV PRN ×2 (20:59→23:41)
[2016-08-15] MEDS: INSULIN GLARGINE SOLOSTAR 100 UNITS/ML 3 ML PEN SC SCH (21:35)
[2016-08-15] MEDS ORDERED: INSULIN REGULAR 10 UNITS in SYRINGE 9.9 ML IV SCH (21:45)
[2016-08-15] MEDS: ONDANSETRON INJ 2 MG/ML 2 ML VIAL IV PRN (22:03)
[2016-08-15 22:07] LABS: BUN/CREATININE RATIO 8.5 (10-20); CREATININE 1.7 mg/dl (0.60-1.40); POTASSIUM 4.5 mmol/L (3.5-5.1)
[2016-08-15 22:08] LABS: CALCIUM 7.9 mg/dl (8.5-10.1)
[2016-08-15 22:22] LABS: BETA-HYDROXYBUTYRATE 4.12 mg/dL (0.2-2.81)
[2016-08-16] VITALS (8 sets, daily range): BP systolic 112–191; BP diastolic 63–101; PULSE 78–95; TEMP 36.4–36.7; O2SAT 92–100; BMI 28.6
[2016-08-16] MEDS: CHECK FENTANYL PATCH PLACEMENT SCH ×3 (00:13→16:00)
[2016-08-16] MEDS: HYDROmorphone INJ 1 MG/ML SYR IV PRN ×5 (02:57→20:14)
[2016-08-16] MEDS: TAPENTADOL HCL 50 MG TAB PO PRN ×3 (03:05→21:52)
[2016-08-16] MEDS: INSULIN HUMAN REGULAR SC SCH ×3 (04:00→13:26)
[2016-08-16] MEDS: ONDANSETRON INJ 2 MG/ML 2 ML VIAL IV PRN (05:02)
[2016-08-16 06:09] LABS: HEMATOCRIT 26.2 % (42-52); MEAN CELL VOLUME 80.9 fL (80-100); MEAN CORPUSCULAR HEMOGLOBIN 27.8 pg (25-34); MEAN CORPUSCULAR HGB CONC 34.4 g/dl (32-36); MEAN PLATELET VOLUME 8.4 fL (7.4-10.4); PLATELET COUNT 197 K/uL (130-400); RED BLOOD COUNT 3.24 M/uL (4.7-6.1); WHITE BLOOD COUNT 6.42 K/uL (4.8-10.8)
[2016-08-16] MEDS: PROMETHAZINE HCL INJ 12.5 MG in SODIUM CHLORIDE 0.9% 50ML 50 ML IV PRN ×2 (06:25→13:20)
[2016-08-16 06:58] LABS: BUN/CREATININE RATIO 9.9 (10-20); CALCIUM 8.3 mg/dl (8.5-10.1); CREATININE 1.5 mg/dl (0.60-1.40); MAGNESIUM 1.6 mg/dl (1.8-2.4); POTASSIUM 4.1 mmol/L (3.5-5.1)
[2016-08-16] MEDS: NSS + 20MEQ KCL 1000ML 1,000 ML IV SCH (07:56)
[2016-08-16] MEDS: MAGNESIUM CHLORIDE 64MG DELAYED REL TAB PO SCH ×2 (09:30→21:51)
[2016-08-16] MEDS: DOCUSATE SODIUM/SENNA 50/8.6MG TAB PO SCH (09:30)
[2016-08-16] MEDS: AMLODIPINE BESYLATE 5 MG TAB PO SCH (09:31)
[2016-08-16] MEDS: PANTOprazole INJ 40 MG in SYRINGE 0 ML IV SCH (09:32)
[2016-08-16] MEDS: METOPROLOL TARTRATE 25 MG TAB PO SCH ×2 (09:32→21:50)
[2016-08-16] MEDS: MAGNESIUM SULFATE 1GM / D5W 1 GM in PREMIXED IN D5W 100 ML IV SCH ×2 (09:33→11:19)
[2016-08-16] MEDS: LEVETIRACETAM 250 MG TAB PO SCH ×2 (09:33→21:49)
[2016-08-16] MEDS: GABAPENTIN 600 MG TAB PO SCH ×3 (09:33→21:50)
[2016-08-16] MEDS: MULTIVITAMIN TAB PO SCH (09:33)
[2016-08-16] MEDS: FENTANYL 100 MCG/HR TDSY TD SCH (09:42)
[2016-08-16] MEDS: FENTANYL PATCH REMOVE & WASTE SCH (09:44)
--- NOTE | 2016-08-16 11:48 | Gastroenterology Progress Note ---
Progress Note Date of Service: Aug 16, 2016 Subjective Pt evaluation today including: conversation w/ patient, physical exam, chart review, lab review, review of inpatient medication list RN report this AM pt appeared obtunded, but then woke up alert, oriented around 9:30AM. Ate regular breakfast, finished whole tray. Denies abd pain. Some nausea but keeping food down. KUB yesterday showed mod fecal retention, he received Senna, had BM overnight. Review of Systems Constitutional: No chills, No fever Respiratory: No cough, No shortness of breath Cardiac: No chest pain, No edema Abdomen: + nausea, No pain, No vomiting Medications Current Inpatient Medications Medications (Trade) Dose Ordered Sig/Cal Route Start Time Stop Time Status Last Admin Dose Admin Acetaminophen (Tylenol Tab) 650 mg Q4H PRN PO 08/15/16 02:45 09/14/16 02:44 Al Hydrox/Mg Hydrox/Simethicone (Maalox Max Susp) 15 ml Q4H PRN PO 08/15/16 02:45 09/14/16 02:44 Magnesium Hydroxide (Milk Of Magnesia Susp) 30 ml Q6H PRN PO 08/15/16 02:45 09/14/16 02:44 Polyethylene (Miralax Powder Packet) 17 gm DAILY PRN PO 08/15/16 03:30 09/14/16 03:29 Zolpidem Tartrate (Ambien Tab) 5 mg HSZ PRN PO 08/15/16 02:45 09/14/16 02:44 Ondansetron HCl (Zofran Inj) 4 mg Q6H PRN IV 08/15/16 02:45 09/14/16 02:44 08/16/16 05:02 4 MG Insulin Human Regular (novoLIN-R) SLIDING SCALE IF C... ACHS SC 08/15/16 06:30 09/14/16 06:59 08/16/16 09:55 13 UNITS Glucose (Glucose 40% Gel) 15-30 GRAMS 15 GRAMS... UD PRN PO 08/15/16 02:45 09/14/16 02:44 Glucose (Glucose Chew Tab) 4-8 Tablets 4 Tabl... UD PRN PO 08/15/16 02:45 09/14/16 02:44 Dextrose (Dextrose 50% 50ML Syringe) 25-50ML OF 50% DW IV FOR... UD PRN IV 08/15/16 02:45 09/14/16 02:44 Glucagon 1 mg 1 mg UD PRN SQ 08/15/16 02:45 09/14/16 02:44 Potassium Chloride/Sodium Chloride (Nss + 20meq KCl 1000ml) 1,000 ml @ 100 mls/hr Q10H IV 08/15/16 03:30 09/14/16 03:29 08/16/16 07:56 100 MLS/HR Amlodipine Besylate (Norvasc Tab) 10 mg QAM PO 08/15/16 08:00 09/14/16 08:59 08/16/16 09:31 10 MG Dexamethasone (Decadron Tab) 16 mg BID PO 08/15/16 08:00 09/14/16 08:59 Future Hold 08/15/16 08:13 16 MG Epinephrine (Epipen) 0.3 mg UD PRN IM 08/15/16 03:00 09/14/16 02:59 Gabapentin (Neurontin Tab) 600 mg TID PO 08/15/16 08:00 09/14/16 08:59 08/16/16 09:33 600 MG Insulin Glargine (Lantus Solostar Pen) 25 unit QPM SC 08/15/16 21:00 09/14/16 20:59 08/15/16 21:35 25 UNIT Levetiracetam (Keppra Tab) 750 mg BID PO 08/15/16 08:00 09/14/16 08:59 08/16/16 09:33 750 MG Magnesium Chloride (Slow-Mag Tab) 64 mg BID PO 08/15/16 08:00 09/14/16 08:59 08/16/16 09:30 64 MG Metoclopramide HCl (Reglan Tab) 10 mg ACHS PRN PO 08/15/16 03:00 09/14/16 02:59 Metoprolol Tartrate (Lopressor Tab) 25 mg BID PO 08/15/16 08:00 09/14/16 08:59 08/16/16 09:32 25 MG Tapentadol (Nucynta Tab) 75 mg Q4H PRN PO 08/15/16 03:00 08/29/16 02:59 08/16/16 03:05 75 MG Multivitamins 1 tab 1 tab QAM PO 08/15/16 08:00 09/14/16 07:59 08/16/16 09:33 1 TAB Promethazine HCl 12.5 mg/Sodium Chloride 50.5 ml @ 204 mls/hr Q6H PRN IV 08/15/16 03:15 09/14/16 03:14 08/16/16 06:25 204 MLS/HR Ondansetron HCl/ Dextrose (Zofran Inj/D5 50ml) 53 ml @ 200 mls/hr Q6H PRN IV 08/15/16 03:15 09/14/16 03:14 08/16/16 10:55 200 MLS/HR Lorazepam (Ativan Inj) 0.5 mg Q4H PRN IV 08/15/16 03:19 09/14/16 03:18 Miscellaneous 1 ea 1 ea PRN PRN N/A 08/15/16 03:15 08/15/17 03:14 Lorazepam/Syringe (Ativan Inj/ Syringe) 1 ml @ 1 mls/min Q4H PRN IV 08/15/16 03:30 09/14/16 03:29 Miscellaneous Information (Check Fentanyl Patch Placement) 1 ea QS N/A 08/15/16 08:00 09/14/16 07:59 08/16/16 09:34 1 EA Fentanyl (Duragesic Patch) 100 mcg Q2D@0800 TD 08/16/16 08:00 08/30/16 07:59 08/16/16 09:42 100 MCG Miscellaneous 1 ea 1 ea Q2D@0759 N/A 08/16/16 07:59 09/15/16 07:58 08/16/16 09:44 1 EA Pantoprazole Sodium/Syringe (Protonix Inj/ Syringe) 10 ml @ 5 mls/min DAILY@09,21 IV 08/15/16 21:00 09/14/16 20:59 08/16/16 09:32 5 MLS/MIN Clonidine HCl (Catapres Tab) 0.1 mg BID PRN PO 08/15/16 13:00 09/14/16 12:59 Miscellaneous Information (Consult Glycemic Management Pharmacy) 1 ea UD PRN N/A 08/15/16 18:33 09/14/16 18:32 Hydromorphone HCl (Dilaudid Inj) 1 mg Q2H PRN IV 08/15/16 20:45 08/29/16 20:44 08/16/16 09:41 1 MG Senna/Docusate Sodium (Senokot S Tab) 1 tab QAM PO 08/16/16 08:00 09/15/16 07:59 08/16/16 09:30 1 TAB Objective Vital Signs Date Time Temp Pulse Resp B/P Pulse Ox O2 Delivery O2 Flow Rate FiO2 08/16/16 09:30 Room Air 08/16/16 08:02 36.7 88 18 122/70 96 Room Air 08/16/16 04:00 36.6 84 16 136/78 93 Room Air 08/16/16 00:00 97 Room Air 08/16/16 00:00 36.4 90 16 149/93 97 Room Air 08/15/16 16:00 Room Air 08/15/16 15:41 36.7 18 159/95 99 Nasal Cannula 2.0 Physical Exam General Appearance: WD/WN, no apparent distress Eyes: normal inspection, PERRL, EOMI Neck: supple, no JVD, trachea midline Respiratory/Chest: normal breath sounds, no respiratory distress, no accessory muscle use Cardiovascular: regular rate, rhythm, no gallop, no murmur Abdomen: normal bowel sounds, non tender, soft Extremities: normal inspection, no pedal edema, no calf tenderness Neurologic/Psych: alert, normal mood/affect, oriented x 3 Skin: normal color, no jaundice, no rash Laboratory Results Last 24 Hours Test 08/15/16 11:46 08/15/16 16:45 08/15/16 20:51 08/15/16 20:54 Bedside Glucose 187 mg/dl 307 mg/dl 457 mg/dl 446 mg/dl Test 08/15/16 21:15 08/15/16 23:25 08/16/16 00:25 08/16/16 02:37 Sodium Level 136 mmol/L Potassium Level 4.5 mmol/L Chloride Level 98 mmol/L Carbon Dioxide Level 30 mmol/L Anion Gap 8.0 mmol/L Blood Urea Nitrogen 15 mg/dl Creatinine 1.70 mg/dl Est Creatinine Clear Calc Drug Dose 50.3 ml/min Estimated GFR () 53.3 Estimated GFR (Non- 46.0 BUN/Creatinine Ratio 8.5 Random Glucose 458 mg/dl Osmolality 306 mOsm/kg Calcium Level 7.9 mg/dl Beta-Hydroxybutyric Acid 4.12 mg/dL Bedside Glucose 320 mg/dl 258 mg/dl 132 mg/dl Test 08/16/16 04:35 08/16/16 05:41 08/16/16 06:24 08/16/16 07:49 Bedside Glucose 91 mg/dl 128 mg/dl 159 mg/dl White Blood Count 6.42 K/uL Red Blood Count 3.24 M/uL Hemoglobin 9.0 g/dL Hematocrit 26.2 % Mean Corpuscular Volume 80.9 fL Mean Corpuscular Hemoglobin 27.8 pg Mean Corpuscular Hemoglobin Concent 34.4 g/dl RDW Standard Deviation 43.8 fL RDW Coefficient of Variation 15.5 % Platelet Count 197 K/uL Mean Platelet Volume 8.4 fL Sodium Level 141 mmol/L Potassium Level 4.1 mmol/L Chloride Level 103 mmol/L Carbon Dioxide Level 31 mmol/L Anion Gap 7.0 mmol/L Blood Urea Nitrogen 15 mg/dl Creatinine 1.50 mg/dl Est Creatinine Clear Calc Drug Dose 62.7 ml/min Estimated GFR () 62.0 Estimated GFR (Non- 53.5 BUN/Creatinine Ratio 9.9 Random Glucose 106 mg/dl Calcium Level 8.3 mg/dl Magnesium Level 1.6 mg/dl Assessment and Plan Patient is a 50 year old male w intractable nausea, vomiting. He has hx of gastroparesis and s/p gastric stimulator placement. He reports since the stimulator was placed, n/v much improved, though noticed symptoms flare after his chemo cycles. Received Cisplastin last on 07/27. He had good resolution of his n/v at his last hospitalization w Emend. Received Emend 150mg IV again yesterday, able to tolerate regular breakfast. [place] some nausea still but no vomiting and refused diet to be dropped to [place] diet. Plans - Keep him on bowel regimen such as Miralax 17g daily or Senna 1-2 tabs daily while he's on narcotics to prevent constipation, ileus. - Protonix 40mg PO BID - Continue current antiemetic regimen. Recommend using Emend 125mg PO x 1 on day 1 then 80mg PO qAM on days 2-3 of chemotherapy. - GI will sign off; call if new questions or concerns arise. I have seen examined and agree with the plan as outlined above by LINDSAY Swift. -would suggest backing off diet to liquid or npo if continues to have nausea
--- NOTE | 2016-08-16 12:34 | Pharmacy Progress Note ---
Glycemic Control: Progress Nt Date of Service Aug 16, 2016. Scope Glycemic Pharmacist consulted by SHEILA Hilton on 08/15 for glycemic control and to write orders per [facility] inpatient glycemic control protocol. Objective Accuchecks BSG (last 24hrs): Test 08/15/16 16:45 08/15/16 20:51 08/15/16 20:54 08/15/16 21:15 Bedside Glucose 307 mg/dl (70-99) 457 mg/dl (70-99) 446 mg/dl (70-99) Random Glucose 458 mg/dl (70-99) Test 08/15/16 23:25 08/16/16 00:25 08/16/16 02:37 08/16/16 04:35 Bedside Glucose 320 mg/dl (70-99) 258 mg/dl (70-99) 132 mg/dl (70-99) 91 mg/dl (70-99) Test 08/16/16 05:41 08/16/16 06:24 08/16/16 07:49 08/16/16 11:35 Random Glucose 106 mg/dl (70-99) Bedside Glucose 128 mg/dl (70-99) 159 mg/dl (70-99) 313 mg/dl (70-99) Laboratory Data (last 24hrs) Test 08/15/16 21:15 08/16/16 05:41 Anion Gap 8.0 mmol/L 7.0 mmol/L BUN/Creatinine Ratio 8.5 9.9 Blood Urea Nitrogen 15 mg/dl 15 mg/dl Creatinine 1.70 mg/dl 1.50 mg/dl Potassium Level 4.5 mmol/L 4.1 mmol/L Sodium Level 136 mmol/L 141 mmol/L White Blood Count 6.42 K/uL Recent Pertinent Medications Outpatient Anti-diabetic Regimen: * Lantus 25 units SQ HS * Humalog per scale [1 units for every 10 above 120mg/dl] The patient is currently receiving: * Basal insulin: Lantus 25 units every 24 hours * Correctional Insulin: REGULAR Correction per scale ACHS Goal Range: Low 120 mg/dL - High 140 mg/dL Correction Factor: 20 mg/dL/unit * Prandial insulin: Per carb ratio of 1 unit per 7 grams CHO consumed Risk Factors for Insulin Resistance: * Steroids: Decadron currently on hold since it is only to be given w/ chemo * Diet: regular diet ordered to advance as tolerated Assessment & Plan ASSESSMENT: From 08/15/16 note: * 50yo T2DM male with poor outpatient control per recent A1c. Although A1c may be unreliable d/t CKD & chemo * Pt with hyperglycemia, BSGs trending upwards d/t receiving high dose PO steroids (dexamethasone 16mg PO BID) * This outpatient medication is only intended to be taken on the day of and the day after chemo but was ordered on admission. * Current insulin orders are basal + correctional insulin only --> prandial insulin coverage is missing. * Will add CR. Pt most likely needs prandial coverage based on high degree of insulin resistance (elevated A1c) and steroid use (steroids have their most profound effect on post-prandial hyperglycemia). * Basal insulin dosing seems reasonable. It is about equivalent to weight/st = 2 dosing given once daily * Pt is ordered Regular insulin instead of NovoLog for bolus insulin orders. RTC use of regular insulin can lead to staking d/t its longer duration of action than NovoLog. Additionally, post-prandial coverage may not be as good as NovoLog d/t its slow onset. Hesitant to change to NovoLog since patient has already been charged for a vial of regular. If BSGs do not improve with adjustment of parameters may consider changing to NovoLog. * ADA & AACE recommend a goal blood sugar range 140-180 mg/dl for the majority of critically ill & non-critically ill patients. However, more stringent targets may be selected in individual cases. Will utilize more stringent target of 120-140mg/dl base on age. Will keep the "low" end of the goal range elevated to help prevent hypo 08/16/16 * Mr. Hamilton's BSGs have ranged from 91-446 mg/dL in the past 24 hrs * She dropped significantly overnight but she did receive additional correction + IV Regular insulin - will plan to continue with the same basal for now * Her BSGs then increased to 313 prior to lunch but this is not accurate as the Regular insulin was given only 1 hr prior * At this point, it's difficult to determine if regimen will need to be changed * I would first and foremost like to change the Regular to Novolog for faster onset and to prevent stacking of doses. I did note that the pt has a history of gastroparesis; therefore, would be a good candidate for Regular insulin but I believe this is what is causing his BSGs to be all over the place. PLAN FOR INPATIENT GLYCEMIC CONTROL: * Continue Lantus 25 units qHS * Change Regular to Novolog ACHS + 0200 accucheck * Goal 120-140 * CF 20 * CR 7 * Please note that the plan above was derived based on current level of insulin resistance and hospital stress. These recommendations are appropriate for inpatient admission only. Plan of care upon discharge will need to be reassessed to avoid potential outpatient hypo/hyperglycemia. Thank you.
--- NOTE | 2016-08-16 12:52 | Progress Note ---
Medicine Progress Note Date & Time of Visit: Aug 16, 2016 at 11:57. (Idalia Watkins PA-C) Subjective Patient seen and examined. Per nursing patient was noted to be lethargic around 8:30 am. Pt had received Dilaudid 1 mg IV at 3 am and Phenergan around 6:30 am. Dilaudid was held for sedation. Pt became awake/ alert again and conversing normally around 9:30. Received Dilaudid 1 mg IV around 9:40 am without issues. States his generalized body pain improved to 3/10 with that dose but it is increasing to 5/10. He ate a regular breakfast. States he was nauseous afterward and vomited 1/3 of his meal. States he prefers to stay on the regular diet. He had a bowel movement after KUB yesterday showed fecal retention. Has been ambulating in hallway without issues. No fevers, chills, abdominal pain, chest pain, SOB, voiding issues. (Idalia Watkins PA-C) Objective Last 8 Hrs Date Time Temp Pulse Resp B/P Pulse Ox O2 Delivery O2 Flow Rate FiO2 08/16/16 11:42 36.5 95 18 168/101 100 Room Air 08/16/16 09:30 Room Air 08/16/16 08:02 36.7 88 18 122/70 96 Room Air 08/16/16 04:00 36.6 84 16 136/78 93 Room Air Physical Exam: General-alert cooperative 50 year old male, sitting on edge of bed, not in distress Eyes-anicteric ENT-hearing grossly intact Neck-trachea midline Lungs-CTA bilaterally, no wheezes, crackles, rhonchi Heart-RRR, no murmur Abdomen-soft, nontender, normal bowel sounds Extremities- no deformity, no edema or calf tenderness Neuro-alert and oriented x 3, normal affect, grossly nonfocal, ambulates normally across the room Laboratory Results: Last 24 Hours Test 08/15/16 16:45 08/15/16 20:51 08/15/16 20:54 08/15/16 21:15 Bedside Glucose 307 mg/dl 457 mg/dl 446 mg/dl Sodium Level 136 mmol/L Potassium Level 4.5 mmol/L Chloride Level 98 mmol/L Carbon Dioxide Level 30 mmol/L Anion Gap 8.0 mmol/L Blood Urea Nitrogen 15 mg/dl Creatinine 1.70 mg/dl Est Creatinine Clear Calc Drug Dose 50.3 ml/min Estimated GFR () 53.3 Estimated GFR (Non- 46.0 BUN/Creatinine Ratio 8.5 Random Glucose 458 mg/dl Osmolality 306 mOsm/kg Calcium Level 7.9 mg/dl Beta-Hydroxybutyric Acid 4.12 mg/dL Test 08/15/16 23:25 08/16/16 00:25 08/16/16 02:37 08/16/16 04:35 Bedside Glucose 320 mg/dl 258 mg/dl 132 mg/dl 91 mg/dl Test 08/16/16 05:41 08/16/16 06:24 08/16/16 07:49 White Blood Count 6.42 K/uL Red Blood Count 3.24 M/uL Hemoglobin 9.0 g/dL Hematocrit 26.2 % Mean Corpuscular Volume 80.9 fL Mean Corpuscular Hemoglobin 27.8 pg Mean Corpuscular Hemoglobin Concent 34.4 g/dl RDW Standard Deviation 43.8 fL RDW Coefficient of Variation 15.5 % Platelet Count 197 K/uL Mean Platelet Volume 8.4 fL Sodium Level 141 mmol/L Potassium Level 4.1 mmol/L Chloride Level 103 mmol/L Carbon Dioxide Level 31 mmol/L Anion Gap 7.0 mmol/L Blood Urea Nitrogen 15 mg/dl Creatinine 1.50 mg/dl Est Creatinine Clear Calc Drug Dose 62.7 ml/min Estimated GFR () 62.0 Estimated GFR (Non- 53.5 BUN/Creatinine Ratio 9.9 Random Glucose 106 mg/dl Calcium Level 8.3 mg/dl Magnesium Level 1.6 mg/dl Bedside Glucose 128 mg/dl 159 mg/dl (Idalia Watkins PAOlgaC) Assessment & Plan INTRACTABLE NAUSEA AND VOMITING Possibly secondary to gastroparesis s/p gastric stimulator May have component of gastritis CT a/p without contrast- suboptimal exam, no obstruction, + mod L pleural effusion with L basilar atelectasis, + fluid overload including body wall edema and trace free fluid in the pelvis, no evidence acute appendicitis KUB showed fecal retention; had bowel movement after that Recently admitted with similar symptoms and improved with Emend Received Emend yesterday On regular diet- still had N/V after; refused diet decrease to full liquid on GI provider's exam Continue Senokot S daily, Protonix 40 mg BID, Reglan, PRN Phenergan, PRN Zofran GI consulted and now signing off; appreciate input CHRONIC PAIN Due to diabetic polyneuropathy Was seen by pain management last admission Currently utilizing IV Dilaudid 1 mg q2h PRN instead of home PO Dilaudid Continued on Fentanyl patch, Nucynta, Keppra, gabapentin Still having pain control issues on current regimen Consult pain management HYPERTENSION BP up to 180s systolic on presentation -> given dose of labetalol -> now fluctuating 120s-160's; Pain likely contributing Continued on amlodipine (dose increased from 5 to 10 mg qam) and metoprolol PRN clonidine added HYPOKALEMIA/ HYPOMAGNESEMIA Secondary to GI loss Hypokalemia resolved with replacement Mag 1.6 -> giving additional magnesium today Monitor electrolytes ANEMIA OF CHRONIC DISEASE Hg is 11.1 ->9.2 -> 9.0 (may be dilutional from IVF's); stable from last discharge (was 8.4 after 1 unit transfused) Continue to monitor H/H CKD STAGE III Had IVAN on recent admission; likely prerenal from poor PO intake/ emesis Creatinine had been improving but increased back up to 1.7 yesterday -> now improving to 1.5; baseline ~0.9-1.0 Continue IVF's Monitor renal function STAGE III NON SMALL CELL LUNG CANCER S/p lobectomy 05/25/16 at [place] Currently on chemo last treatment 07/27/[address] Amanda INSULIN DEPENDENT DM TYPE 2 Recent A1c = 10.4 on 08/06/16 Lantus and Insulin sliding scale coverage BSG elevated to 400s yesterday Pharmacy consulted for glycemic control with improvement of BSG's DVT PROPHYLAXIS Change to SCD due to anemia CODE STATUS Full code per patient's preference on recent admission DISPOSITION Follows with Dr. Burgess for primary care Patient seen in collaboration with Dr. Car. Please see his addendum. Current Inpatient Medications: Current Inpatient Medications Medications (Trade) Dose Ordered Sig/Cal Route Start Time Stop Time Status Last Admin Dose Admin Acetaminophen (Tylenol Tab) 650 mg Q4H PRN PO 08/15/16 02:45 09/14/16 02:44 Al Hydrox/Mg Hydrox/Simethicone (Maalox Max Susp) 15 ml Q4H PRN PO 08/15/16 02:45 09/14/16 02:44 Magnesium Hydroxide (Milk Of Magnesia Susp) 30 ml Q6H PRN PO 08/15/16 02:45 09/14/16 02:44 Polyethylene (Miralax Powder Packet) 17 gm DAILY PRN PO 08/15/16 03:30 09/14/16 03:29 Zolpidem Tartrate (Ambien Tab) 5 mg HSZ PRN PO 08/15/16 02:45 09/14/16 02:44 Ondansetron HCl (Zofran Inj) 4 mg Q6H PRN IV 08/15/16 02:45 09/14/16 02:44 08/16/16 05:02 4 MG Insulin Human Regular (novoLIN-R) SLIDING SCALE IF C... ACHS SC 08/15/16 06:30 09/14/16 06:59 08/16/16 09:55 13 UNITS Glucose (Glucose 40% Gel) 15-30 GRAMS 15 GRAMS... UD PRN PO 08/15/16 02:45 09/14/16 02:44 Glucose (Glucose Chew Tab) 4-8 Tablets 4 Tabl... UD PRN PO 08/15/16 02:45 09/14/16 02:44 Dextrose (Dextrose 50% 50ML Syringe) 25-50ML OF 50% DW IV FOR... UD PRN IV 08/15/16 02:45 09/14/16 02:44 Glucagon 1 mg 1 mg UD PRN SQ 08/15/16 02:45 09/14/16 02:44 Potassium Chloride/Sodium Chloride (Nss + 20meq KCl 1000ml) 1,000 ml @ 100 mls/hr Q10H IV 08/15/16 03:30 09/14/16 03:29 08/16/16 07:56 100 MLS/HR Amlodipine Besylate (Norvasc Tab) 10 mg QAM PO 08/15/16 08:00 09/14/16 08:59 08/16/16 09:31 10 MG Dexamethasone (Decadron Tab) 16 mg BID PO 08/15/16 08:00 09/14/16 08:59 Future Hold 08/15/16 08:13 16 MG Epinephrine (Epipen) 0.3 mg UD PRN IM 08/15/16 03:00 09/14/16 02:59 Gabapentin (Neurontin Tab) 600 mg TID PO 08/15/16 08:00 09/14/16 08:59 08/16/16 09:33 600 MG Insulin Glargine (Lantus Solostar Pen) 25 unit QPM SC 08/15/16 21:00 09/14/16 20:59 08/15/16 21:35 25 UNIT Levetiracetam (Keppra Tab) 750 mg BID PO 08/15/16 08:00 09/14/16 08:59 08/16/16 09:33 750 MG Magnesium Chloride (Slow-Mag Tab) 64 mg BID PO 08/15/16 08:00 09/14/16 08:59 08/16/16 09:30 64 MG Metoclopramide HCl (Reglan Tab) 10 mg ACHS PRN PO 08/15/16 03:00 09/14/16 02:59 Metoprolol Tartrate (Lopressor Tab) 25 mg BID PO 08/15/16 08:00 09/14/16 08:59 08/16/16 09:32 25 MG Tapentadol (Nucynta Tab) 75 mg Q4H PRN PO 08/15/16 03:00 08/29/16 02:59 08/16/16 03:05 75 MG Multivitamins 1 tab 1 tab QAM PO 08/15/16 08:00 09/14/16 07:59 08/16/16 09:33 1 TAB Promethazine HCl 12.5 mg/Sodium Chloride 50.5 ml @ 204 mls/hr Q6H PRN IV 08/15/16 03:15 09/14/16 03:14 08/16/16 06:25 204 MLS/HR Ondansetron HCl/ Dextrose (Zofran Inj/D5 50ml) 53 ml @ 200 mls/hr Q6H PRN IV 08/15/16 03:15 09/14/16 03:14 08/16/16 10:55 200 MLS/HR Lorazepam (Ativan Inj) 0.5 mg Q4H PRN IV 08/15/16 03:19 09/14/16 03:18 Miscellaneous 1 ea 1 ea PRN PRN N/A 08/15/16 03:15 08/15/17 03:14 Lorazepam/Syringe (Ativan Inj/ Syringe) 1 ml @ 1 mls/min Q4H PRN IV 08/15/16 03:30 09/14/16 03:29 Miscellaneous Information (Check Fentanyl Patch Placement) 1 ea QS N/A 08/15/16 08:00 09/14/16 07:59 08/16/16 09:34 1 EA Fentanyl (Duragesic Patch) 100 mcg Q2D@0800 TD 08/16/16 08:00 08/30/16 07:59 08/16/16 09:42 100 MCG Miscellaneous (Fentanyl Patch Remove & Waste) 1 ea Q2D@0759 N/A 08/16/16 07:59 09/15/16 07:58 08/16/16 09:44 1 EA Clonidine HCl (Catapres Tab) 0.1 mg BID PRN PO 08/15/16 13:00 09/14/16 12:59 Miscellaneous Information (Consult Glycemic Management Pharmacy) 1 ea UD PRN N/A 08/15/16 18:33 09/14/16 18:32 Hydromorphone HCl (Dilaudid Inj) 1 mg Q2H PRN IV 08/15/16 20:45 08/29/16 20:44 08/16/16 09:41 1 MG Senna/Docusate Sodium (Senokot S Tab) 1 tab QAM PO 08/16/16 08:00 09/15/16 07:59 08/16/16 09:30 1 TAB Pantoprazole Sodium (Protonix Tab) 40 mg BID PO 08/16/16 20:00 09/15/16 19:59 UNV (Idalia Watkins PA-C) ATTENDING ADDENDUM care coordinated with CHARLI Watkins please refer to her notes for full details, I agree with her notes patient seen and examined, records reviewed by myself as well on exam, patient seen sitting up in bed, states severe pain is coming back less nausea today no abdominal pain ,chest pain, dyspnea, dizziness, headache no other symptoms VS noted and reviewed oriented x 3 , not in distress, speaks in sentences with no effort nor accessory muscle use normal rate, regular rhythm, no murmurs clear breath sounds bilaterally non distended, soft, nontender no neuro deficits pedal edema Hg 9.0 Crea 1.5 ASSESSMENT/PLAN> NAUSEA/VOMITING lung cancer on chemo, chronic narcotic use, history of gastroparesis KUB (+) moderate fecal retention emend , protonix, senokot s given GI consulted, no further interventions -- improving overall CHRONIC PAIN SYNDROME DM NEUROPATHY patient reports excruciating generalized pain continue Dilaudid 1mg q2h PRN for now, Fentanyl, Nucynta, Gabapentin Pain Mgt Consult pending LUNG CANCER hold chemo for now as per Dr. Amanda until clinical status improves patient would like to speak with Dr. Amanda re: continuing chemo advised patient to call Dr. Amanda in his office other diagnoses and plan of care as per CHARLI Watkins's notes discussed plan of care with patient at length he is agreeable and comfortable with plan of care Antonino Car MD (Antonino Car MD)
--- NOTE | 2016-08-16 13:56 | ONCOLOGY CONSULTATION ---
DATE OF CONSULTATION: 08/16/2016 DATE OF CONSULTATION: 08/16/2016. CONSULTATION REQUESTED BY: Dr. Car. REASON FOR CONSULTATION: The patient is scheduled for chemotherapy tomorrow. At the present time, Mr. Hamilton is not a candidate for further chemotherapy due to his ongoing medical problems with persistent nausea, emesis, and poor pain control. Once his symptoms are brought under control, he should contact my office at which time a follow-up appointment will be made. At that time, I will decide on further treatment or not. I will follow him while he remains hospitalized. I do not plan to see him at this time in consultation. MIRTHAD
[2016-08-16] MEDS ORDERED: ENOXAPARIN 40 MG/0.4 ML SYR SQ ONE (17:28)
[2016-08-16] MEDS: SODIUM CHLORIDE 0.9% 1000ML 1,000 ML IV SCH (17:47)
[2016-08-16] MEDS: INSULIN ASPART 100 UNITS/ML 3 ML PEN SC SCH ×2 (17:53→21:56)
[2016-08-16] MEDS: PANTOprazole SOD 40 MG TAB PO SCH (21:51)
[2016-08-16] MEDS: INSULIN GLARGINE SOLOSTAR 100 UNITS/ML 3 ML PEN SC SCH (21:55)
[2016-08-16] MEDS: CLONIDINE HCL 0.1 MG TAB PO PRN (22:31)
[2016-08-17] VITALS (8 sets, daily range): BP systolic 123–177; BP diastolic 66–112; PULSE 73–88; TEMP 36.5–36.8; O2SAT 95–100; BMI 28.7
[2016-08-17] MEDS ORDERED: INSULIN ASPART 100 UNITS/ML 3 ML PEN SC ONE (02:00)
[2016-08-17] MEDS: CHECK FENTANYL PATCH PLACEMENT SCH ×4 (02:22→23:12)
[2016-08-17] MEDS: HYDROmorphone INJ 1 MG/ML SYR IV PRN ×7 (02:22→21:30)
[2016-08-17 06:43] LABS: HEMATOCRIT 27.4 % (42-52); MEAN CELL VOLUME 82.3 fL (80-100); MEAN CORPUSCULAR HEMOGLOBIN 28.8 pg (25-34); MEAN PLATELET VOLUME 8.3 fL (7.4-10.4); PLATELET COUNT 201 K/uL (130-400); RED BLOOD COUNT 3.33 M/uL (4.7-6.1); WHITE BLOOD COUNT 6.38 K/uL (4.8-10.8)
[2016-08-17] MEDS: SODIUM CHLORIDE 0.9% 1000ML 1,000 ML IV SCH (06:47)
[2016-08-17 07:17] LABS: BUN/CREATININE RATIO 9.8 (10-20); CALCIUM 8.3 mg/dl (8.5-10.1); CREATININE 1.4 mg/dl (0.60-1.40); MAGNESIUM 1.8 mg/dl (1.8-2.4); POTASSIUM 3.6 mmol/L (3.5-5.1)
[2016-08-17] MEDS ORDERED: ENOXAPARIN 40 MG/0.4 ML SYR SQ SCH (08:00)
[2016-08-17] MEDS: LEVETIRACETAM 250 MG TAB PO SCH ×2 (08:21→19:58)
[2016-08-17] MEDS: AMLODIPINE BESYLATE 5 MG TAB PO SCH (08:22)
[2016-08-17] MEDS: DOCUSATE SODIUM/SENNA 50/8.6MG TAB PO SCH (08:23)
[2016-08-17] MEDS: MULTIVITAMIN TAB PO SCH (08:23)
[2016-08-17] MEDS: GABAPENTIN 600 MG TAB PO SCH ×3 (08:23→19:58)
[2016-08-17] MEDS: METOPROLOL TARTRATE 25 MG TAB PO SCH ×2 (08:23→19:59)
[2016-08-17] MEDS: PANTOprazole SOD 40 MG TAB PO SCH ×2 (08:23→19:59)
[2016-08-17] MEDS: MAGNESIUM CHLORIDE 64MG DELAYED REL TAB PO SCH ×2 (08:23→19:59)
[2016-08-17] MEDS: INSULIN ASPART 100 UNITS/ML 3 ML PEN SC SCH ×4 (08:25→21:28)
[2016-08-17] MEDS: TAPENTADOL HCL 50 MG TAB PO PRN ×2 (09:32→23:12)
--- NOTE | 2016-08-17 12:04 | Progress Note ---
Medicine Progress Note Date & Time of Visit: Aug 17, 2016 at 12:03. Subjective seen sitting up in bed, appears comfortable still having episodes of excruciating pain, nucynta with dilaudid IV relieving the pain denies nausea since this morning tolerating diet so far denies chest pain, dyspnea, dizziness no leg pain denies other symptoms Objective Last 8 Hrs Date Time Temp Pulse Resp B/P Pulse Ox O2 Delivery O2 Flow Rate FiO2 08/17/16 11:57 36.6 80 18 143/79 95 08/17/16 09:31 36.5 85 16 136/77 99 08/17/16 08:00 Room Air 08/17/16 04:35 36.7 73 20 137/87 96 Room Air Physical Exam: General- oriented x 3 not in distress, speaks in sentences with no effort Eyes- EOMI, anicteric ENT- oropharynx clear Neck- no JVD Lungs- clear breath sounds bilaterally Heart- normal rate, regular rhythm; no murmurs Abdomen- normal bowel sounds, soft, nontender Extremities- mild lower leg edema- no erythema/warmth/tenderness Neuro- alert, oriented x 3; no gross focal deficits Skin- warm & dry Laboratory Results: Last 24 Hours Test 08/16/16 12:34 08/16/16 17:07 08/16/16 20:02 08/17/16 02:03 Bedside Glucose 298 mg/dl 155 mg/dl 172 mg/dl 120 mg/dl Test 08/17/16 05:40 08/17/16 07:54 08/17/16 08:12 08/17/16 08:44 White Blood Count 6.38 K/uL Red Blood Count 3.33 M/uL Hemoglobin 9.6 g/dL Hematocrit 27.4 % Mean Corpuscular Volume 82.3 fL Mean Corpuscular Hemoglobin 28.8 pg Mean Corpuscular Hemoglobin Concent 35.0 g/dl RDW Standard Deviation 44.9 fL RDW Coefficient of Variation 15.9 % Platelet Count 201 K/uL Mean Platelet Volume 8.3 fL Sodium Level 142 mmol/L Potassium Level 3.6 mmol/L Chloride Level 104 mmol/L Carbon Dioxide Level 31 mmol/L Anion Gap 7.0 mmol/L Blood Urea Nitrogen 14 mg/dl Creatinine 1.40 mg/dl Est Creatinine Clear Calc Drug Dose 67.2 ml/min Estimated GFR () 67.4 Estimated GFR (Non- 58.2 BUN/Creatinine Ratio 9.8 Random Glucose 62 mg/dl Calcium Level 8.3 mg/dl Magnesium Level 1.8 mg/dl Bedside Glucose 64 mg/dl 60 mg/dl 60 mg/dl Test 08/17/16 08:46 08/17/16 08:50 08/17/16 09:31 08/17/16 09:43 Bedside Glucose 50 mg/dl 66 mg/dl Random Glucose mg/dl 83 mg/dl Assessment & Plan 50 year old male with history of St 3 Lung CA on chemo, DM, Gastroparesis, Chronic Pain from Neuropathy, Anemia presenting with persistent nausea/vomiting. INTRACTABLE NAUSEA AND VOMITING Possibly secondary to gastroparesis s/p gastric stimulator May have component of gastritis CT a/p without contrast- suboptimal exam, no obstruction, + mod L pleural effusion with L basilar atelectasis, + fluid overload including body wall edema and trace free fluid in the pelvis, no evidence acute appendicitis KUB showed fecal retention; had bowel movement after that -- has received Emend Nausea resolving tolerating diet again - continue Senokot S daily, Protonix 40 mg BID, Reglan, PRN Phenergan, PRN Zofran GI consulted and now signing off; appreciate input CHRONIC PAIN Due to diabetic polyneuropathy Was seen by pain management last admission -- with intermittent severe pain episodes, currently adequately controlled with IV Dilaudid 1mg q2h in addition to home pain regimen Continued on Fentanyl patch, Nucynta, Keppra, gabapentin Consulted pain management HYPERTENSION BP up to 180s systolic on presentation -> given dose of labetalol -> now fluctuating 120s-160's; Pain likely contributing Continued on amlodipine (dose increased from 5 to 10 mg qam) and metoprolol PRN clonidine added HYPOKALEMIA/ HYPOMAGNESEMIA Secondary to GI loss replaced and resolved ANEMIA OF CHRONIC DISEASE Hg is 11.1 ->9.2 -> 9.0 (may be dilutional from IVF's); stable from last discharge CKD STAGE III Had IVAN on recent admission; likely prerenal from poor PO intake/ emesis given IVFs resolved STAGE III NON SMALL CELL LUNG CANCER S/p lobectomy 05/25/16 at [place] Currently on chemo last treatment 07/27/[address] Amanda -- patient requests to continue with Chemo as inpatient to manage side/adverse effects patient states he is accepting of possible side effects/adverse effects but would like to continue chemotherapy to address his Lung CA INSULIN DEPENDENT DM TYPE 2 Recent A1c = 10.4 on 08/06/16 Lantus and Insulin sliding scale coverage Pharmacy consulted for glycemic control with improvement of BSG's LEG EDEMA check Leg US DVT PROPHYLAXIS Lovenox CODE STATUS Full code per patient's preference on recent admission DISPOSITION Follows with Dr. Burgess for primary care Current Inpatient Medications: Current Inpatient Medications Medications (Trade) Dose Ordered Sig/Cal Route Start Time Stop Time Status Last Admin Dose Admin Acetaminophen (Tylenol Tab) 650 mg Q4H PRN PO 08/15/16 02:45 09/14/16 02:44 Al Hydrox/Mg Hydrox/Simethicone (Maalox Max Susp) 15 ml Q4H PRN PO 08/15/16 02:45 09/14/16 02:44 Magnesium Hydroxide (Milk Of Magnesia Susp) 30 ml Q6H PRN PO 08/15/16 02:45 09/14/16 02:44 Polyethylene (Miralax Powder Packet) 17 gm DAILY PRN PO 08/15/16 03:30 09/14/16 03:29 Zolpidem Tartrate (Ambien Tab) 5 mg HSZ PRN PO 08/15/16 02:45 09/14/16 02:44 Ondansetron HCl (Zofran Inj) 4 mg Q6H PRN IV 08/15/16 02:45 09/14/16 02:44 08/16/16 05:02 4 MG Glucose (Glucose 40% Gel) 15-30 GRAMS 15 GRAMS... UD PRN PO 08/15/16 02:45 09/14/16 02:44 Glucose (Glucose Chew Tab) 4-8 Tablets 4 Tabl... UD PRN PO 08/15/16 02:45 09/14/16 02:44 Dextrose (Dextrose 50% 50ML Syringe) 25-50ML OF 50% DW IV FOR... UD PRN IV 08/15/16 02:45 09/14/16 02:44 Glucagon (Glucagon Inj) 1 mg UD PRN SQ 08/15/16 02:45 09/14/16 02:44 Amlodipine Besylate (Norvasc Tab) 10 mg QAM PO 08/15/16 08:00 09/14/16 08:59 08/17/16 08:22 10 MG Dexamethasone (Decadron Tab) 16 mg BID PO 08/15/16 08:00 09/14/16 08:59 Future Hold 08/15/16 08:13 16 MG Epinephrine (Epipen) 0.3 mg UD PRN IM 08/15/16 03:00 09/14/16 02:59 Gabapentin (Neurontin Tab) 600 mg TID PO 08/15/16 08:00 09/14/16 08:59 08/17/16 08:23 600 MG Levetiracetam (Keppra Tab) 750 mg BID PO 08/15/16 08:00 09/14/16 08:59 08/17/16 08:21 750 MG Magnesium Chloride (Slow-Mag Tab) 64 mg BID PO 08/15/16 08:00 09/14/16 08:59 08/17/16 08:23 64 MG Metoclopramide HCl (Reglan Tab) 10 mg ACHS PRN PO 08/15/16 03:00 09/14/16 02:59 Metoprolol Tartrate (Lopressor Tab) 25 mg BID PO 08/15/16 08:00 09/14/16 08:59 08/17/16 08:23 25 MG Tapentadol (Nucynta Tab) 75 mg Q4H PRN PO 08/15/16 03:00 08/29/16 02:59 08/17/16 09:32 75 MG Multivitamins 1 tab 1 tab QAM PO 08/15/16 08:00 09/14/16 07:59 08/17/16 08:23 1 TAB Promethazine HCl 12.5 mg/Sodium Chloride 50.5 ml @ 204 mls/hr Q6H PRN IV 08/15/16 03:15 09/14/16 03:14 08/16/16 13:20 204 MLS/HR Ondansetron HCl/ Dextrose (Zofran Inj/D5 50ml) 53 ml @ 200 mls/hr Q6H PRN IV 08/15/16 03:15 09/14/16 03:14 08/16/16 10:55 200 MLS/HR Lorazepam (Ativan Inj) 0.5 mg Q4H PRN IV 08/15/16 03:19 09/14/16 03:18 Miscellaneous 1 ea 1 ea PRN PRN N/A 08/15/16 03:15 08/15/17 03:14 Lorazepam/Syringe (Ativan Inj/ Syringe) 1 ml @ 1 mls/min Q4H PRN IV 08/15/16 03:30 09/14/16 03:29 Miscellaneous Information (Check Fentanyl Patch Placement) 1 ea QS N/A 08/15/16 08:00 09/14/16 07:59 08/17/16 08:24 1 EA Fentanyl (Duragesic Patch) 100 mcg Q2D@0800 TD 08/16/16 08:00 08/30/16 07:59 08/16/16 09:42 100 MCG Miscellaneous (Fentanyl Patch Remove & Waste) 1 ea Q2D@0759 N/A 08/16/16 07:59 09/15/16 07:58 08/16/16 09:44 1 EA Clonidine HCl (Catapres Tab) 0.1 mg BID PRN PO 08/15/16 13:00 09/14/16 12:59 08/16/16 22:31 0.1 MG Miscellaneous Information (Consult Glycemic Management Pharmacy) 1 ea UD PRN N/A 08/15/16 18:33 09/14/16 18:32 Hydromorphone HCl (Dilaudid Inj) 1 mg Q2H PRN IV 08/15/16 20:45 08/29/16 20:44 08/17/16 11:13 1 MG Senna/Docusate Sodium (Senokot S Tab) 1 tab QAM PO 08/16/16 08:00 09/15/16 07:59 08/17/16 08:23 1 TAB Pantoprazole Sodium (Protonix Tab) 40 mg BID PO 08/16/16 20:00 09/15/16 19:59 08/17/16 08:23 40 MG Insulin Aspart SLIDING SCALE ACHS SC 08/16/16 16:30 09/15/16 16:29 08/16/16 21:56 4 UNITS Sodium Chloride (Nss 1000ml) 1,000 ml @ 75 mls/hr [id number] IV 08/16/16 17:15 09/15/16 17:14 08/17/16 06:47 75 MLS/HR Enoxaparin Sodium (Lovenox Inj) 40 mg Q24H SQ 08/17/16 18:00 09/16/16 17:59 Insulin Glargine (Lantus Solostar Pen) 20 unit QPM SC 08/17/16 21:00 09/16/16 20:59
--- NOTE | 2016-08-17 13:37 | Pharmacy Progress Note ---
Glycemic Control: Progress Nt Date of Service Aug 17, 2016. Scope Glycemic Pharmacist consulted by Gomez SOSA on 08/15/16 for glycemic control and to write orders per [facility] inpatient glycemic control protocol. Objective Accuchecks BSG (last 24hrs): Test 08/16/16 17:07 08/16/16 20:02 08/17/16 02:03 08/17/16 05:40 Bedside Glucose 155 mg/dl (70-99) 172 mg/dl (70-99) 120 mg/dl (70-99) Random Glucose 62 mg/dl (70-99) Test 08/17/16 07:54 08/17/16 08:12 08/17/16 08:44 08/17/16 08:46 Bedside Glucose 64 mg/dl (70-99) 60 mg/dl (70-99) 60 mg/dl (70-99) 50 mg/dl (70-99) Test 08/17/16 08:50 08/17/16 09:31 08/17/16 09:43 08/17/16 11:56 Random Glucose mg/dl (70-99) 83 mg/dl (70-99) Bedside Glucose 66 mg/dl (70-99) 90 mg/dl (70-99) Laboratory Data (last 24hrs) Test 08/17/16 05:40 Anion Gap 7.0 mmol/L BUN/Creatinine Ratio 9.8 Blood Urea Nitrogen 14 mg/dl Creatinine 1.40 mg/dl Potassium Level 3.6 mmol/L Sodium Level 142 mmol/L White Blood Count 6.38 K/uL HbA1c: 10.4% 08/06/16 Recent Pertinent Medications Outpatient Anti-diabetic Regimen: * Lantus 25 units Q HS * Humalog per sliding scale using a correction factor of 10mg/dL/unit * A1c = 10.4 % 08/06/16 The patient is currently receiving: * Basal insulin: Lantus 25 units every 24 hours - dosed in the PM * Correctional Insulin: Novolog Correction per scale ACHS Goal Range: Low 120 mg/dL - High 140 mg/dL Correction Factor: 20 mg/dL/unit * Prandial insulin: Per carb ratio of 1 unit per 7 grams CHO consumed * Oral Agents: None currently Risk Factors for Insulin Resistance: * Steroids: n/a * Infection: n/a * Pressors: n/a * IVF: NS @ 75cc/hr * Recent Surgery: n/a * Diet: ordered Regular diet * Mechanical Ventilation: n/a Assessment & Plan ASSESSMENT: From 08/15/16 note: * 50yo T2DM male with poor outpatient control per recent A1c. Although A1c may be unreliable d/t CKD & chemo * Pt with hyperglycemia, BSGs trending upwards d/t receiving high dose PO steroids (dexamethasone 16mg PO BID) * This outpatient medication is only intended to be taken on the day of and the day after chemo but was ordered on admission. * Current insulin orders are basal + correctional insulin only --> prandial insulin coverage is missing. * Will add CR. Pt most likely needs prandial coverage based on high degree of insulin resistance (elevated A1c) and steroid use (steroids have their most profound effect on post-prandial hyperglycemia). * Basal insulin dosing seems reasonable. It is about equivalent to weight/st = 2 dosing given once daily * Pt is ordered Regular insulin instead of NovoLog for bolus insulin orders. RTC use of regular insulin can lead to staking d/t its longer duration of action than NovoLog. Additionally, post-prandial coverage may not be as good as NovoLog d/t its slow onset. Hesitant to change to NovoLog since patient has already been charged for a vial of regular. If BSGs do not improve with adjustment of parameters may consider changing to NovoLog. * ADA & AACE recommend a goal blood sugar range 140-180 mg/dl for the majority of critically ill & non-critically ill patients. However, more stringent targets may be selected in individual cases. Will utilize more stringent target of 120-140mg/dl base on age. Will keep the "low" end of the goal range elevated to help prevent hypo 08/16/16 * Mr. Hamilton's BSGs have ranged from 91-446 mg/dL in the past 24 hrs * She dropped significantly overnight but she did receive additional correction + IV Regular insulin - will plan to continue with the same basal for now * Her BSGs then increased to 313 prior to lunch but this is not accurate as the Regular insulin was given only 1 hr prior * At this point, it's difficult to determine if regimen will need to be changed * I would first and foremost like to change the Regular to Novolog for faster onset and to prevent stacking of doses. I did note that the pt has a history of gastroparesis; therefore, would be a good candidate for Regular insulin but I believe this is what is causing his BSGs to be all over the place. 08/17/16 * Patient had a period of hypoglycemia this AM (BSGs 50's and 60's) and was likely due to excess basal insulin. * Will reduce the basal insulin dose and add a hold parameter to the order to reduce hypoglycemic risk * Given the patient's BSG did not rebound quickly despite CHO administration I feel it best to also reduce the CF and CR doses at this time, at least for the next 24 hrs as excess basal may be on board for the remainder of the day today PLAN FOR INPATIENT GLYCEMIC CONTROL: * Decreasing Lantus to 15 units SQ HS; hold if BSG less than 120 * Changing correction factor to 30 mg/dl/unit * Changing carb ratio to 1 unit per 10 grams CHO consumed * Continuing goal range of Low 120 mg/dL - High 140 mg/dL * Please note that the plan above was derived based on current level of insulin resistance and hospital stress. These recommendations are appropriate for inpatient admission only. Plan of care upon discharge will need to be reassessed to avoid potential outpatient hypo/hyperglycemia. Thank you.
--- NOTE | 2016-08-17 13:53 | DIAGNOSTIC IMAGING REPORT ---
BILATERAL LOWER EXTREMITY VENOUS DOPPLER HISTORY: Leg swelling. COMPARISON STUDY: None. FINDINGS: There is normal compressibility, flow, and augmentation within the bilateral lower extremity deep venous systems. IMPRESSION: No DVT within the right or left lower extremity. Electronically signed by: Danilo Langley M.D. 08/17/2016 1:51 PM Dictated Date/Time: 08/17/2016 1:51 PM
--- NOTE | 2016-08-17 15:48 | Pain Management Consultation ---
Pain Management Consultation Date of Consultation Aug 17, 2016. Reason for Consultation Mr. Hamilton is a 50-year-old male who was recently discharged from [facility] and readmitted again this admission for nausea and vomiting as well as neuropathic pain. He has long-standing history of insulin dependent diabetes with severe polyneuropathy as well as gastroparesis as a result of long-standing diabetes. He experiences sharp, lancinating pain in the upper and lower extremities that occur spontaneously. He rates the pain as 8/10 when severe and 2/10 when minimal. Pain occurs in episodic nature and is exacerbated by any tactile stimulation. He also reports numbness in the upper extremities as well as the trunk. In addition to the numbness, he reports proprioceptive difficulties resulting in multiple falls and requiring use of cane. He is currently on transdermal fentanyl and oral Tapentadol for pain. Reports suboptimal analgesia from his current regimen which also includes anti- neuropathic medications. He reports no benefit from the gabapentin and in the past, had similar lack of efficacy from pregabalin. Prior to the transdermal fentanyl, he had intrathecal opiate pump infusion system implanted with reportedly good efficacy. He reports that intrathecal infusion of hydromorphone, bupivacaine, clonidine, and ziconotide is extremely efficacious. However, approximately 3-4 years ago, when intrathecal pump was replaced due to depleted battery, he suffered infection of the wound site and at the catheter site. Pump and the catheter was therefore removed and subsequently he deferred reimplantation. During his hospitalization, he is receiving transdermal fentanyl, Tapentadol ( short acting) 75 mg every 4 hours, as well as IV hydromorphone. IV hydromorphone provides good efficacy but are hydromorphone does not appear to laisha his symptoms any. He denies any previous history of any stenosis substance use, diversion, or misuse of his opioids. Social / Work History Marital Status: Housing Status: lives with significant other Allergies Coded Allergies: BEE STING (Verified Allergy, Mild, SWELLING AT SITE, SOB, 08/15/16) Penicillins (Verified Allergy, Unknown, "SINCE ", 08/15/16) Medications Current Inpatient Medications Medications (Trade) Dose Ordered Sig/Cal Route Start Time Stop Time Status Last Admin Dose Admin Acetaminophen (Tylenol Tab) 650 mg Q4H PRN PO 08/15/16 02:45 09/14/16 02:44 Al Hydrox/Mg Hydrox/Simethicone (Maalox Max Susp) 15 ml Q4H PRN PO 08/15/16 02:45 09/14/16 02:44 Magnesium Hydroxide (Milk Of Magnesia Susp) 30 ml Q6H PRN PO 08/15/16 02:45 09/14/16 02:44 Polyethylene (Miralax Powder Packet) 17 gm DAILY PRN PO 08/15/16 03:30 09/14/16 03:29 Zolpidem Tartrate (Ambien Tab) 5 mg HSZ PRN PO 08/15/16 02:45 09/14/16 02:44 Ondansetron HCl (Zofran Inj) 4 mg Q6H PRN IV 08/15/16 02:45 09/14/16 02:44 08/16/16 05:02 4 MG Glucose (Glucose 40% Gel) 15-30 GRAMS 15 GRAMS... UD PRN PO 08/15/16 02:45 09/14/16 02:44 Glucose (Glucose Chew Tab) 4-8 Tablets 4 Tabl... UD PRN PO 08/15/16 02:45 09/14/16 02:44 Dextrose (Dextrose 50% 50ML Syringe) 25-50ML OF 50% DW IV FOR... UD PRN IV 08/15/16 02:45 09/14/16 02:44 Glucagon (Glucagon Inj) 1 mg UD PRN SQ 08/15/16 02:45 09/14/16 02:44 Amlodipine Besylate (Norvasc Tab) 10 mg QAM PO 08/15/16 08:00 09/14/16 08:59 08/17/16 08:22 10 MG Dexamethasone (Decadron Tab) 16 mg BID PO 08/15/16 08:00 09/14/16 08:59 Future Hold 08/15/16 08:13 16 MG Epinephrine (Epipen) 0.3 mg UD PRN IM 08/15/16 03:00 09/14/16 02:59 Gabapentin (Neurontin Tab) 600 mg TID PO 08/15/16 08:00 09/14/16 08:59 08/17/16 08:23 600 MG Levetiracetam (Keppra Tab) 750 mg BID PO 08/15/16 08:00 09/14/16 08:59 08/17/16 08:21 750 MG Magnesium Chloride (Slow-Mag Tab) 64 mg BID PO 08/15/16 08:00 09/14/16 08:59 08/17/16 08:23 64 MG Metoclopramide HCl (Reglan Tab) 10 mg ACHS PRN PO 08/15/16 03:00 09/14/16 02:59 Metoprolol Tartrate (Lopressor Tab) 25 mg BID PO 08/15/16 08:00 09/14/16 08:59 08/17/16 08:23 25 MG Tapentadol (Nucynta Tab) 75 mg Q4H PRN PO 08/15/16 03:00 08/29/16 02:59 08/17/16 09:32 75 MG Multivitamins 1 tab 1 tab QAM PO 08/15/16 08:00 09/14/16 07:59 08/17/16 08:23 1 TAB Promethazine HCl 12.5 mg/Sodium Chloride 50.5 ml @ 204 mls/hr Q6H PRN IV 08/15/16 03:15 09/14/16 03:14 08/16/16 13:20 204 MLS/HR Ondansetron HCl/ Dextrose (Zofran Inj/D5 50ml) 53 ml @ 200 mls/hr Q6H PRN IV 08/15/16 03:15 09/14/16 03:14 08/16/16 10:55 200 MLS/HR Lorazepam (Ativan Inj) 0.5 mg Q4H PRN IV 08/15/16 03:19 09/14/16 03:18 Miscellaneous 1 ea 1 ea PRN PRN N/A 08/15/16 03:15 08/15/17 03:14 Lorazepam/Syringe (Ativan Inj/ Syringe) 1 ml @ 1 mls/min Q4H PRN IV 08/15/16 03:30 09/14/16 03:29 Miscellaneous Information (Check Fentanyl Patch Placement) 1 ea QS N/A 08/15/16 08:00 09/14/16 07:59 08/17/16 08:24 1 EA Fentanyl (Duragesic Patch) 100 mcg Q2D@0800 TD 08/16/16 08:00 08/30/16 07:59 08/16/16 09:42 100 MCG Miscellaneous (Fentanyl Patch Remove & Waste) 1 ea Q2D@0759 N/A 08/16/16 07:59 09/15/16 07:58 08/16/16 09:44 1 EA Clonidine HCl (Catapres Tab) 0.1 mg BID PRN PO 08/15/16 13:00 09/14/16 12:59 08/16/16 22:31 0.1 MG Miscellaneous Information (Consult Glycemic Management Pharmacy) 1 ea UD PRN N/A 08/15/16 18:33 09/14/16 18:32 Hydromorphone HCl (Dilaudid Inj) 1 mg Q2H PRN IV 08/15/16 20:45 08/29/16 20:44 08/17/16 11:13 1 MG Senna/Docusate Sodium (Senokot S Tab) 1 tab QAM PO 08/16/16 08:00 09/15/16 07:59 08/17/16 08:23 1 TAB Pantoprazole Sodium (Protonix Tab) 40 mg BID PO 08/16/16 20:00 09/15/16 19:59 08/17/16 08:23 40 MG Insulin Aspart (novoLOG ASPART) SLIDING SCALE ACHS SC 08/16/16 16:30 09/15/16 16:29 08/17/16 13:04 2 UNITS Enoxaparin Sodium (Lovenox Inj) 40 mg Q24H SQ 08/17/16 18:00 09/16/16 17:59 Insulin Glargine (Lantus Solostar Pen) SEE SCALE QPM SC 08/17/16 21:00 09/16/16 20:59 Review of Systems Denies any recent history of fever, night sweats, unexplained weight loss, or constitutional symptoms. Otherwise, 8 point review of system has been reported to be negative. Physical Exam Height & Weight: Height 5 feet, 8.00 inches. Weight 85.600 (Kilograms) 188 (Pounds) Last Vital Signs Documentation Date Time Temp Pulse Resp B/P Pulse Ox O2 Delivery O2 Flow Rate FiO2 08/17/16 11:57 36.6 80 18 143/79 95 08/17/16 08:00 Room Air 08/15/16 15:41 2.0 Exam: Mr. Smith is alert and oriented. Mood and affect are appropriate. Short- term and long-term memory is intact. Sensorium is clear. He is ambulating with an unsteady gait requiring support from a single-point cane. He has decreased sensation up to the proximal upper extremities as well as proximal lower extremities to light touch. He has poor proprioception. He has symmetrical motor strength of lower extremities as well as the upper extremities or deficits. He had decreased sensation to light touch in the trunk up to approximately T5 dermatomal level. Laboratory / Imaging Results Laboratory Results (Last CBC): 08/17/16 05:40 [place] Drug Monitoring Program Search Results: patient reviewed within database Drug Monitoring Findings: No such patient found in the [facility] system. Assessment 1. Diabetic polyneuropathy. 2. Gastroparesis, possibly exacerbated by use of opiate analgesics. Recommendations 1. Recommend decrease reliance on IV hydromorphone. Patient was educated and counseled on limiting the use of IV hydromorphone that might be contributing to his gastroparesis. 2. Increase Tapentadol to 100 mg by mouth every 4 hours as Tapentadol has less effect and gastric motility. 3. Long-term, patient is interested in undergoing reimplantation of intrathecal medication delivery system. Upon discharge, he can be followed up at [facility] to be evaluated for intrathecal drug delivery system to eliminate the use of topical and oral opiate analgesics and therefore minimize the effect of opiates on patient's gastric motility. [employer] Voice Recognition This chart was completed in part utilizing [employer] Voice Recognition Software. Random word insertions, pronoun errors, and incomplete sentences are an occasional consequence of this system due to software limitations and ambient noise. Any questions or concerns about the content, text or information contained within the body of this dictation should be directly addressed to the provider for clarification.
[2016-08-17] MEDS ORDERED: NURSING VERBAL MED ORDER ONE (17:15)
[2016-08-17] MEDS: ONDANSETRON INJ 2 MG/ML 2 ML VIAL IV PRN (17:19)
[2016-08-17] MEDS ORDERED: TAPENTADOL HCL 50 MG TAB PO SCH (17:30)
[2016-08-17] MEDS: ENOXAPARIN 40 MG/0.4 ML SYR SQ SCH (17:55)
[2016-08-17] MEDS ORDERED: INSULIN GLARGINE SOLOSTAR 100 UNITS/ML 3 ML PEN SC SCH (21:00)
[2016-08-17] MEDS: INSULIN GLARGINE SOLOSTAR 100 UNITS/ML 3 ML PEN SC SCH (21:29)
[2016-08-18] MEDS: HYDROmorphone INJ 1 MG/ML SYR IV PRN ×8 (00:17→22:02)
[2016-08-18 04:00] VITALS: BP 155/92; PULSE 87; TEMP 36.5; O2SAT 90
[2016-08-18] MEDS ORDERED: FENTANYL PATCH REMOVE & WASTE SCH (05:59)
[2016-08-18] MEDS: TAPENTADOL HCL 50 MG TAB PO PRN ×4 (06:03→21:26)
[2016-08-18 06:15] LABS: MEAN CELL VOLUME 82.3 fL (80-100); MEAN CORPUSCULAR HEMOGLOBIN 27.8 pg (25-34); MEAN CORPUSCULAR HGB CONC 33.8 g/dl (32-36); MEAN PLATELET VOLUME 8.4 fL (7.4-10.4); PLATELET COUNT 195 K/uL (130-400); RED BLOOD COUNT 3.16 M/uL (4.7-6.1); WHITE BLOOD COUNT 5.97 K/uL (4.8-10.8)
[2016-08-18 06:35] LABS: BUN/CREATININE RATIO 10.9 (10-20); CREATININE 1.3 mg/dl (0.60-1.40); MAGNESIUM 1.6 mg/dl (1.8-2.4); POTASSIUM 3.7 mmol/L (3.5-5.1)
[2016-08-18 07:56] VITALS: BP 165/91; PULSE 91; TEMP 36.7; O2SAT 92
[2016-08-18] MEDS: FENTANYL PATCH REMOVE & WASTE SCH (07:59)
[2016-08-18] MEDS: CHECK FENTANYL PATCH PLACEMENT SCH ×2 (08:00→15:10)
[2016-08-18] MEDS: AMLODIPINE BESYLATE 5 MG TAB PO SCH (08:31)
[2016-08-18] MEDS: LEVETIRACETAM 250 MG TAB PO SCH ×2 (08:32→19:58)
[2016-08-18] MEDS: MULTIVITAMIN TAB PO SCH (08:32)
[2016-08-18] MEDS: GABAPENTIN 600 MG TAB PO SCH ×3 (08:32→19:57)
[2016-08-18] MEDS: DOCUSATE SODIUM/SENNA 50/8.6MG TAB PO SCH (08:32)
[2016-08-18] MEDS: CLONIDINE HCL 0.1 MG TAB PO PRN (08:32)
[2016-08-18] MEDS: METOPROLOL TARTRATE 25 MG TAB PO SCH ×2 (08:32→19:57)
[2016-08-18] MEDS: PANTOprazole SOD 40 MG TAB PO SCH ×2 (08:33→19:56)
[2016-08-18] MEDS: MAGNESIUM CHLORIDE 64MG DELAYED REL TAB PO SCH ×2 (08:33→19:57)
[2016-08-18] MEDS: ONDANSETRON INJ 2 MG/ML 2 ML VIAL IV PRN ×2 (08:49→17:38)
[2016-08-18] MEDS: FENTANYL 100 MCG/HR TDSY TD SCH (08:49)
[2016-08-18] MEDS: INSULIN ASPART 100 UNITS/ML 3 ML PEN SC SCH ×4 (09:04→21:30)
[2016-08-18] MEDS: PROMETHAZINE HCL INJ 12.5 MG in SODIUM CHLORIDE 0.9% 50ML 50 ML IV PRN (10:58)
[2016-08-18 11:48] VITALS: BP 143/87; PULSE 91; TEMP 36; O2SAT 95
--- NOTE | 2016-08-18 14:49 | Pharmacy Progress Note ---
Glycemic Control Intl Consult Date of Service Aug 18, 2016. Scope Glycemic Pharmacist consulted by Isabella Watkins on 08/15/16 for glycemic control and to write orders per [facility] inpatient glycemic control protocol Objective Weight (Kilograms): 87.500 Accuchecks BSG (last 24hrs): Test 08/17/16 16:38 08/17/16 20:22 08/18/16 05:40 08/18/16 07:41 Bedside Glucose 120 mg/dl (70-99) 182 mg/dl (70-99) 92 mg/dl (70-99) Random Glucose 74 mg/dl (70-99) Test 08/18/16 11:21 08/18/16 11:39 Bedside Glucose 46 mg/dl (70-99) 73 mg/dl (70-99) Laboratory Data (last 24hrs) Test 08/18/16 05:40 Anion Gap 5.0 mmol/L BUN/Creatinine Ratio 10.9 Blood Urea Nitrogen 14 mg/dl Creatinine 1.30 mg/dl Potassium Level 3.7 mmol/L Sodium Level 144 mmol/L White Blood Count 5.97 K/uL Recent Pertinent Medications Outpatient Anti-diabetic Regimen: * Lantus 25 units Q HS * Humalog per sliding scale using a correction factor of 10mg/dL/unit * A1c = 10.4 % 08/06/16 The patient is currently receiving: * Basal insulin: Lantus 15 units every 24 hours - dosed in the PM * Correctional Insulin: NovoLog Correction per scale AC/HS Goal Range: Low 120 mg/dL - High 140 mg/dL Correction Factor: 30 mg/dL/unit * Prandial insulin: Per carb ratio of 1 unit per 10 grams CHO consumed * Oral Agents: None currently Risk Factors for Insulin Resistance: * Steroids: n/a * Infection: n/a * Pressors: n/a * IVF: n/a * Recent Surgery: n/a * Diet: ordered Regular diet * Mechanical Ventilation: n/a Assessment & Plan ASSESSMENT: From 08/15/16 note: * 50yo T2DM male with poor outpatient control per recent A1c. Although A1c may be unreliable d/t CKD & chemo * Pt with hyperglycemia, BSGs trending upwards d/t receiving high dose PO steroids (dexamethasone 16mg PO BID) * This outpatient medication is only intended to be taken on the day of and the day after chemo but was ordered on admission. * Current insulin orders are basal + correctional insulin only --> prandial insulin coverage is missing. * Will add CR. Pt most likely needs prandial coverage based on high degree of insulin resistance (elevated A1c) and steroid use (steroids have their most profound effect on post-prandial hyperglycemia). * Basal insulin dosing seems reasonable. It is about equivalent to weight/st = 2 dosing given once daily * Pt is ordered Regular insulin instead of NovoLog for bolus insulin orders. RTC use of regular insulin can lead to staking d/t its longer duration of action than NovoLog. Additionally, post-prandial coverage may not be as good as NovoLog d/t its slow onset. Hesitant to change to NovoLog since patient has already been charged for a vial of regular. If BSGs do not improve with adjustment of parameters may consider changing to NovoLog. * ADA & AACE recommend a goal blood sugar range 140-180 mg/dl for the majority of critically ill & non-critically ill patients. However, more stringent targets may be selected in individual cases. Will utilize more stringent target of 120-140mg/dl base on age. Will keep the "low" end of the goal range elevated to help prevent hypo 08/16/16 * Mr. Hamilton's BSGs have ranged from 91-446 mg/dL in the past 24 hrs * She dropped significantly overnight but she did receive additional correction + IV Regular insulin - will plan to continue with the same basal for now * Her BSGs then increased to 313 prior to lunch but this is not accurate as the Regular insulin was given only 1 hr prior * At this point, it's difficult to determine if regimen will need to be changed * I would first and foremost like to change the Regular to Novolog for faster onset and to prevent stacking of doses. I did note that the pt has a history of gastroparesis; therefore, would be a good candidate for Regular insulin but I believe this is what is causing his BSGs to be all over the place. 08/17/16 * Patient had a period of hypoglycemia this AM (BSGs 50's and 60's) and was likely due to excess basal insulin. * Will reduce the basal insulin dose and add a hold parameter to the order to reduce hypoglycemic risk * Given the patient's BSG did not rebound quickly despite CHO administration I feel it best to also reduce the CF and CR doses at this time, at least for the next 24 hrs as excess basal may be on board for the remainder of the day today 08/18/16 * BSG below goal this AM despite decrease in basal insulin yesterday * further decreased Lantus dose * hypoglycemia pre-lunch today * from tightened NovoLog parameters - loosen NovoLog CF and CR PLAN FOR INPATIENT GLYCEMIC CONTROL: * Decreasing Lantus to 12 units SQ HS; hold if BSG less than 120 * Continue NovoLog AC and HS * Correction factor 30 mg/dl/unit * Carb ratio 1 unit per 10 grams CHO consumed * Goal range of Low 140 mg/dL - High 180 mg/dL per ADA recommendations * A1c added to discharge instructions * Please note that the plan above was derived based on current level of insulin resistance and hospital stress. These recommendations are appropriate for inpatient admission only. Plan of care upon discharge will need to be reassessed to avoid potential outpatient hypo/hyperglycemia. Thank you.
[2016-08-18 15:24] VITALS: BP 122/84; PULSE 85; TEMP 36.6; O2SAT 97
[2016-08-18] MEDS: ENOXAPARIN 40 MG/0.4 ML SYR SQ SCH (17:36)
--- NOTE | 2016-08-18 18:23 | Progress Note ---
Medicine Progress Note Date & Time of Visit: Aug 18, 2016 at 18:12. Subjective patient seen and examined today states he is having nausea again not able to tolerate lunch today no abdominal pain denies chest pain, dyspnea, palpitations no other symptoms Objective Last 8 Hrs Date Time Temp Pulse Resp B/P Pulse Ox O2 Delivery O2 Flow Rate FiO2 08/18/16 16:00 Room Air 08/18/16 15:24 36.6 85 18 122/84 97 Room Air 08/18/16 11:48 36.0 91 20 143/87 95 Room Air Physical Exam: General- oriented x 3 , not in distress, speaks in sentences with no effort Eyes- anicteric Neck- no JVD Lungs- clear breath sounds b/l no rales or wheezes Heart- normal rate, regular rhythm; no murmurs Abdomen- normal bowel sounds, soft, nontender, non distended Extremities- minimal lower leg edema- no erythema/warmth/tenderness Neuro- alert, oriented x 3; no gross focal deficits Skin- warm & dry Laboratory Results: Last 24 Hours Test 08/17/16 20:22 08/18/16 05:40 08/18/16 07:41 08/18/16 11:21 Bedside Glucose 182 mg/dl 92 mg/dl 46 mg/dl White Blood Count 5.97 K/uL Red Blood Count 3.16 M/uL Hemoglobin 8.8 g/dL Hematocrit 26.0 % Mean Corpuscular Volume 82.3 fL Mean Corpuscular Hemoglobin 27.8 pg Mean Corpuscular Hemoglobin Concent 33.8 g/dl RDW Standard Deviation 45.7 fL RDW Coefficient of Variation 16.2 % Platelet Count 195 K/uL Mean Platelet Volume 8.4 fL Sodium Level 144 mmol/L Potassium Level 3.7 mmol/L Chloride Level 104 mmol/L Carbon Dioxide Level 35 mmol/L Anion Gap 5.0 mmol/L Blood Urea Nitrogen 14 mg/dl Creatinine 1.30 mg/dl Est Creatinine Clear Calc Drug Dose 72.4 ml/min Estimated GFR () 73.7 Estimated GFR (Non- 63.6 BUN/Creatinine Ratio 10.9 Random Glucose 74 mg/dl Calcium Level 8.0 mg/dl Magnesium Level 1.6 mg/dl Test 08/18/16 11:39 08/18/16 16:22 Bedside Glucose 73 mg/dl 140 mg/dl Assessment & Plan 50 year old male with history of St 3 Lung CA on chemo, DM, Gastroparesis, Chronic Pain from Neuropathy, Anemia presenting with persistent nausea/vomiting. INTRACTABLE NAUSEA AND VOMITING Possibly secondary to gastroparesis s/p gastric stimulator May have component of gastritis CT a/p without contrast- suboptimal exam, no obstruction, + mod L pleural effusion with L basilar atelectasis, + fluid overload including body wall edema and trace free fluid in the pelvis, no evidence acute appendicitis KUB showed fecal retention; had bowel movement after that -- has received Emend Nausea was resolving, increased again today - continue Senokot S daily, Protonix 40 mg BID, Reglan, PRN Phenergan, PRN Zofran GI consulted CHRONIC PAIN Due to diabetic polyneuropathy Was seen by pain management last admission - re evaluated by Pain Mgt Nucynta increased encouraged to decrease reliance with Dilaudid IV Continued on Fentanyl patch, Keppra, Gabapentin HYPERTENSION Continued on amlodipine (dose increased from 5 to 10 mg qam) and metoprolol PRN clonidine added HYPOKALEMIA/ HYPOMAGNESEMIA Secondary to GI loss will replace Mg ANEMIA OF CHRONIC DISEASE Hg is 11.1 ->9.2 -> 9.0 (may be dilutional from IVF's); stable from last discharge CKD STAGE III Had IVAN on recent admission; likely prerenal from poor PO intake/ emesis given IVFs resolved STAGE III NON SMALL CELL LUNG CANCER S/p lobectomy 05/25/16 at [place] Currently on chemo last treatment 07/27/[address] Amanda -- patient requests to continue with Chemo as inpatient to manage side/adverse effects patient states he is accepting of possible side effects/adverse effects but would like to continue chemotherapy to address his Lung CA INSULIN DEPENDENT DM TYPE 2 Recent A1c = 10.4 on 08/06/16 Lantus and Insulin sliding scale coverage Pharmacy consulted for glycemic control with improvement of BSG's LEG EDEMA Leg US: no DVT DVT PROPHYLAXIS Lovenox CODE STATUS Full code per patient's preference on recent admission DISPOSITION Follows with Dr. Burgess for primary care Current Inpatient Medications: Current Inpatient Medications Medications (Trade) Dose Ordered Sig/Cal Route Start Time Stop Time Status Last Admin Dose Admin Acetaminophen (Tylenol Tab) 650 mg Q4H PRN PO 08/15/16 02:45 09/14/16 02:44 Al Hydrox/Mg Hydrox/Simethicone (Maalox Max Susp) 15 ml Q4H PRN PO 08/15/16 02:45 09/14/16 02:44 Magnesium Hydroxide (Milk Of Magnesia Susp) 30 ml Q6H PRN PO 08/15/16 02:45 09/14/16 02:44 Polyethylene (Miralax Powder Packet) 17 gm DAILY PRN PO 08/15/16 03:30 09/14/16 03:29 Zolpidem Tartrate (Ambien Tab) 5 mg HSZ PRN PO 08/15/16 02:45 09/14/16 02:44 Ondansetron HCl (Zofran Inj) 4 mg Q6H PRN IV 08/15/16 02:45 09/14/16 02:44 08/18/16 17:38 4 MG Glucose (Glucose 40% Gel) 15-30 GRAMS 15 GRAMS... UD PRN PO 08/15/16 02:45 09/14/16 02:44 Glucose (Glucose Chew Tab) 4-8 Tablets 4 Tabl... UD PRN PO 08/15/16 02:45 09/14/16 02:44 Dextrose (Dextrose 50% 50ML Syringe) 25-50ML OF 50% DW IV FOR... UD PRN IV 08/15/16 02:45 09/14/16 02:44 Glucagon (Glucagon Inj) 1 mg UD PRN SQ 08/15/16 02:45 09/14/16 02:44 Amlodipine Besylate (Norvasc Tab) 10 mg QAM PO 08/15/16 08:00 09/14/16 08:59 08/18/16 08:31 10 MG Dexamethasone (Decadron Tab) 16 mg BID PO 08/15/16 08:00 09/14/16 08:59 Future Hold 08/15/16 08:13 16 MG Epinephrine (Epipen) 0.3 mg UD PRN IM 08/15/16 03:00 09/14/16 02:59 Gabapentin (Neurontin Tab) 600 mg TID PO 08/15/16 08:00 09/14/16 08:59 08/18/16 14:20 600 MG Levetiracetam (Keppra Tab) 750 mg BID PO 08/15/16 08:00 09/14/16 08:59 08/18/16 08:32 750 MG Magnesium Chloride (Slow-Mag Tab) 64 mg BID PO 08/15/16 08:00 09/14/16 08:59 08/18/16 08:33 64 MG Metoclopramide HCl (Reglan Tab) 10 mg ACHS PRN PO 08/15/16 03:00 09/14/16 02:59 Metoprolol Tartrate (Lopressor Tab) 25 mg BID PO 08/15/16 08:00 09/14/16 08:59 08/18/16 08:32 25 MG Multivitamins 1 tab 1 tab QAM PO 08/15/16 08:00 09/14/16 07:59 08/18/16 08:32 1 TAB Promethazine HCl 12.5 mg/Sodium Chloride 50.5 ml @ 204 mls/hr Q6H PRN IV 08/15/16 03:15 09/14/16 03:14 08/18/16 10:58 204 MLS/HR Ondansetron HCl/ Dextrose (Zofran Inj/D5 50ml) 53 ml @ 200 mls/hr Q6H PRN IV 08/15/16 03:15 09/14/16 03:14 08/16/16 10:55 200 MLS/HR Lorazepam (Ativan Inj) 0.5 mg Q4H PRN IV 08/15/16 03:19 09/14/16 03:18 Miscellaneous 1 ea 1 ea PRN PRN N/A 08/15/16 03:15 08/15/17 03:14 Lorazepam/Syringe (Ativan Inj/ Syringe) 1 ml @ 1 mls/min Q4H PRN IV 08/15/16 03:30 09/14/16 03:29 Miscellaneous Information (Check Fentanyl Patch Placement) 1 ea QS N/A 08/15/16 08:00 09/14/16 07:59 08/18/16 15:10 1 EA Fentanyl (Duragesic Patch) 100 mcg Q2D@0800 TD 08/16/16 08:00 08/30/16 07:59 08/18/16 08:49 100 MCG Miscellaneous (Fentanyl Patch Remove & Waste) 1 ea Q2D@0759 N/A 08/16/16 07:59 09/15/16 07:58 08/18/16 07:59 1 EA Clonidine HCl (Catapres Tab) 0.1 mg BID PRN PO 08/15/16 13:00 09/14/16 12:59 08/18/16 08:32 0.1 MG Miscellaneous Information (Consult Glycemic Management Pharmacy) 1 ea UD PRN N/A 08/15/16 18:33 09/14/16 18:32 Hydromorphone HCl (Dilaudid Inj) 1 mg Q2H PRN IV 08/15/16 20:45 08/29/16 20:44 08/18/16 17:37 1 MG Senna/Docusate Sodium (Senokot S Tab) 1 tab QAM PO 08/16/16 08:00 09/15/16 07:59 08/18/16 08:32 1 TAB Pantoprazole Sodium (Protonix Tab) 40 mg BID PO 08/16/16 20:00 09/15/16 19:59 08/18/16 08:33 40 MG Insulin Aspart (novoLOG ASPART) SLIDING SCALE ACHS SC 08/16/16 16:30 09/15/16 16:29 08/18/16 13:05 4 UNITS Enoxaparin Sodium (Lovenox Inj) 40 mg Q24H SQ 08/17/16 18:00 09/16/16 17:59 08/18/16 17:36 40 MG Insulin Glargine (Lantus Solostar Pen) SEE SCALE QPM SC 08/17/16 21:00 09/16/16 20:59 08/17/16 21:29 15 UNIT Tapentadol (Nucynta Tab) 100 mg Q4H PRN PO 08/17/16 19:00 08/31/16 18:59 08/18/16 15:07 100 MG
[2016-08-18 19:53] VITALS: BP 158/90; PULSE 100; TEMP 36.9; O2SAT 94
[2016-08-18] MEDS: INSULIN GLARGINE SOLOSTAR 100 UNITS/ML 3 ML PEN SC SCH (21:31)
[2016-08-18 23:13] VITALS: BP 128/82; PULSE 89; TEMP 36.6; O2SAT 100
[2016-08-19] MEDS: CHECK FENTANYL PATCH PLACEMENT SCH ×3 (00:01→15:38)
[2016-08-19] MEDS: HYDROmorphone INJ 1 MG/ML SYR IV PRN ×8 (00:38→23:06)
[2016-08-19 07:29] VITALS: BP 116/72; PULSE 92; TEMP 36.8; O2SAT 92
[2016-08-19] MEDS: MAGNESIUM CHLORIDE 64MG DELAYED REL TAB PO SCH ×2 (08:02→22:07)
[2016-08-19] MEDS: GABAPENTIN 600 MG TAB PO SCH ×3 (08:02→22:09)
[2016-08-19] MEDS: ONDANSETRON INJ 2 MG/ML 2 ML VIAL IV PRN ×2 (08:02→17:56)
[2016-08-19] MEDS: METOPROLOL TARTRATE 25 MG TAB PO SCH ×2 (08:03→22:07)
[2016-08-19] MEDS: PANTOprazole SOD 40 MG TAB PO SCH ×2 (08:03→22:10)
[2016-08-19] MEDS: MULTIVITAMIN TAB PO SCH (08:03)
[2016-08-19] MEDS: CLONIDINE HCL 0.1 MG TAB PO PRN (08:03)
[2016-08-19] MEDS: AMLODIPINE BESYLATE 5 MG TAB PO SCH (08:03)
[2016-08-19] MEDS: DOCUSATE SODIUM/SENNA 50/8.6MG TAB PO SCH (08:03)
[2016-08-19] MEDS: LEVETIRACETAM 250 MG TAB PO SCH ×2 (08:04→22:08)
[2016-08-19] MEDS: TAPENTADOL HCL 50 MG TAB PO PRN ×3 (08:46→20:08)
[2016-08-19] MEDS: INSULIN ASPART 100 UNITS/ML 3 ML PEN SC SCH ×4 (08:50→22:10)
[2016-08-19] MEDS: PROMETHAZINE HCL INJ 12.5 MG in SODIUM CHLORIDE 0.9% 50ML 50 ML IV PRN ×2 (08:59→20:33)
[2016-08-19 11:18] VITALS: BP 119/67; PULSE 81; TEMP 36.8; O2SAT 90
--- NOTE | 2016-08-19 13:01 | Pharmacy Progress Note ---
Glycemic Control: Progress Nt Date of Service Aug 19, 2016. Scope Glycemic Pharmacist consulted by Isabella Watkins on 08/15/16 for glycemic control and to write orders per [facility] inpatient glycemic control protocol. Objective Accuchecks BSG (last 24hrs): Test 08/18/16 16:22 08/18/16 20:07 08/19/16 07:41 08/19/16 11:13 Bedside Glucose 140 mg/dl (70-99) 272 mg/dl (70-99) 236 mg/dl (70-99) 133 mg/dl (70-99) Recent Pertinent Medications Outpatient Anti-diabetic Regimen: * Lantus 25 units Q HS * Humalog per sliding scale using a correction factor of 10mg/dL/unit * A1c = 10.4 % 08/06/16 The patient is currently receiving: * Basal insulin: Lantus 12 units every 24 hours - dosed in the PM * Correctional Insulin: NovoLog Correction per scale AC/HS Goal Range: Low 110 mg/dL - High 140 mg/dL Correction Factor: 30 mg/dL/unit * Prandial insulin: Per carb ratio of 1 unit per 10 grams CHO consumed * Oral Agents: None currently Risk Factors for Insulin Resistance: * Steroids: n/a * Infection: n/a * Pressors: n/a * IVF: n/a * Recent Surgery: n/a * Diet: ordered Regular diet * Mechanical Ventilation: n/a Assessment & Plan ASSESSMENT: From 08/15/16 note: * 50yo T2DM male with poor outpatient control per recent A1c. Although A1c may be unreliable d/t CKD & chemo * Pt with hyperglycemia, BSGs trending upwards d/t receiving high dose PO steroids (dexamethasone 16mg PO BID) * This outpatient medication is only intended to be taken on the day of and the day after chemo but was ordered on admission. * Current insulin orders are basal + correctional insulin only --> prandial insulin coverage is missing. * Will add CR. Pt most likely needs prandial coverage based on high degree of insulin resistance (elevated A1c) and steroid use (steroids have their most profound effect on post-prandial hyperglycemia). * Basal insulin dosing seems reasonable. It is about equivalent to weight/st = 2 dosing given once daily * Pt is ordered Regular insulin instead of NovoLog for bolus insulin orders. RTC use of regular insulin can lead to staking d/t its longer duration of action than NovoLog. Additionally, post-prandial coverage may not be as good as NovoLog d/t its slow onset. Hesitant to change to NovoLog since patient has already been charged for a vial of regular. If BSGs do not improve with adjustment of parameters may consider changing to NovoLog. * ADA & AACE recommend a goal blood sugar range 140-180 mg/dl for the majority of critically ill & non-critically ill patients. However, more stringent targets may be selected in individual cases. Will utilize more stringent target of 120-140mg/dl base on age. Will keep the "low" end of the goal range elevated to help prevent hypo 08/16/16 * Mr. Hamilton's BSGs have ranged from 91-446 mg/dL in the past 24 hrs * She dropped significantly overnight but she did receive additional correction + IV Regular insulin - will plan to continue with the same basal for now * Her BSGs then increased to 313 prior to lunch but this is not accurate as the Regular insulin was given only 1 hr prior * At this point, it's difficult to determine if regimen will need to be changed * I would first and foremost like to change the Regular to Novolog for faster onset and to prevent stacking of doses. I did note that the pt has a history of gastroparesis; therefore, would be a good candidate for Regular insulin but I believe this is what is causing his BSGs to be all over the place. 08/17/16 * Patient had a period of hypoglycemia this AM (BSGs 50's and 60's) and was likely due to excess basal insulin. * Will reduce the basal insulin dose and add a hold parameter to the order to reduce hypoglycemic risk * Given the patient's BSG did not rebound quickly despite CHO administration I feel it best to also reduce the CF and CR doses at this time, at least for the next 24 hrs as excess basal may be on board for the remainder of the day today 08/18/16 * BSG below goal this AM despite decrease in basal insulin yesterday * further decreased Lantus dose * hypoglycemia pre-lunch today * from tightened NovoLog parameters - loosen NovoLog CF and CR 08/19/16 * 27 units of insulin administered on 08/18 with BSGs ranging widely. * likely lability coming from over aggressive NovoLog parameters and excessive basal insulin - both of which have been addressed yesterday * Today, charbel BSG elevated, however corrected nicely pre-lunch * no change to NovoLog parameters * hesitate to change Lantus until more data collected PLAN FOR INPATIENT GLYCEMIC CONTROL: * Continue Lantus 12 units SQ HS; hold if BSG less than 120 * Continue NovoLog AC and HS * Correction factor 30 mg/dl/unit * Carb ratio 1 unit per 10 grams CHO consumed * Goal range of Low 140 mg/dL - High 180 mg/dL per ADA recommendations * A1c added to discharge instructions RECOMMENDATIONS FOR DISCHARGE: * Awaited * Please note that the plan above was derived based on current level of insulin resistance and hospital stress. These recommendations are appropriate for inpatient admission only. Plan of care upon discharge will need to be reassessed to avoid potential outpatient hypo/hyperglycemia. Thank you.
--- NOTE | 2016-08-19 13:58 | Progress Note ---
Medicine Progress Note Date & Time of Visit: Aug 19, 2016 at 13:51. Subjective had some nausea this morning pain adequately controlled with current analgesic regimen feels "wobbly" with his legs today, advised to ask for assistance when getting up at all times, patient agreed denies chest pain, dyspnea, dizziness no other symptoms Objective Last 8 Hrs Date Time Temp Pulse Resp B/P Pulse Ox O2 Delivery O2 Flow Rate FiO2 08/19/16 11:18 36.8 81 16 119/67 90 Room Air 08/19/16 08:00 Room Air 08/19/16 07:29 36.8 92 20 116/72 92 Room Air Physical Exam: General- oriented x 3 , not in distress, speaks in sentences with no effort Neck- no JVD Lungs- clear breath sounds bilaterally Heart- normal rate, regular rhythm; no murmurs Abdomen- normal bowel sounds, soft, nontender, non distended Extremities- negative lower leg edema- no erythema/warmth/tenderness Neuro- alert, oriented x 3; no gross focal deficits Skin- warm & dry Laboratory Results: Last 24 Hours Test 08/18/16 16:22 08/18/16 20:07 08/19/16 07:41 08/19/16 11:13 Bedside Glucose 140 mg/dl 272 mg/dl 236 mg/dl 133 mg/dl Assessment & Plan 50 year old male with history of St 3 Lung CA on chemo, DM, Gastroparesis, Chronic Pain from Neuropathy, Anemia presenting with persistent nausea/vomiting. INTRACTABLE NAUSEA AND VOMITING Possibly secondary to gastroparesis s/p gastric stimulator May have component of gastritis CT a/p without contrast- suboptimal exam, no obstruction, + mod L pleural effusion with L basilar atelectasis, + fluid overload including body wall edema and trace free fluid in the pelvis, no evidence acute appendicitis KUB showed fecal retention; had bowel movement after that -- has received Emend Nausea was resolving, increased again yesterday - continue Senokot S daily, Protonix 40 mg BID, Reglan, PRN Phenergan, PRN Zofran GI consulted CHRONIC PAIN Due to diabetic polyneuropathy Was seen by pain management last admission - re evaluated by Pain Mgt Nucynta increased encouraged to decrease reliance with Dilaudid IV Continued on Fentanyl patch, Keppra, Gabapentin - controlled with above regimen HYPERTENSION Continued on amlodipine (dose increased from 5 to 10 mg qam) and metoprolol PRN clonidine added HYPOKALEMIA/ HYPOMAGNESEMIA Secondary to GI loss check mg and k ANEMIA OF CHRONIC DISEASE Hg is 11.1 ->9.2 -> 9.0 (may be dilutional from IVF's); stable from last discharge CKD STAGE III Had IVAN on recent admission; likely prerenal from poor PO intake/ emesis given IVFs resolved STAGE III NON SMALL CELL LUNG CANCER S/p lobectomy 05/25/16 at [place] Currently on chemo last treatment 07/27/[address] Amanda -- patient requests to continue with Chemo as inpatient to manage side/adverse effects patient states he is accepting of possible side effects/adverse effects but would like to continue chemotherapy to address his Lung CA INSULIN DEPENDENT DM TYPE 2 Recent A1c = 10.4 on 08/06/16 Lantus and Insulin sliding scale coverage Pharmacy consulted for glycemic control with improvement of BSG's LEG EDEMA Leg US: no DVT DVT PROPHYLAXIS Lovenox CODE STATUS Full code per patient's preference on recent admission DISPOSITION Follows with Dr. Burgess for primary care Current Inpatient Medications: Current Inpatient Medications Medications (Trade) Dose Ordered Sig/Cal Route Start Time Stop Time Status Last Admin Dose Admin Acetaminophen (Tylenol Tab) 650 mg Q4H PRN PO 08/15/16 02:45 09/14/16 02:44 Al Hydrox/Mg Hydrox/Simethicone (Maalox Max Susp) 15 ml Q4H PRN PO 08/15/16 02:45 09/14/16 02:44 Magnesium Hydroxide (Milk Of Magnesia Susp) 30 ml Q6H PRN PO 08/15/16 02:45 09/14/16 02:44 Polyethylene (Miralax Powder Packet) 17 gm DAILY PRN PO 08/15/16 03:30 09/14/16 03:29 Zolpidem Tartrate (Ambien Tab) 5 mg HSZ PRN PO 08/15/16 02:45 09/14/16 02:44 Ondansetron HCl (Zofran Inj) 4 mg Q6H PRN IV 08/15/16 02:45 09/14/16 02:44 08/19/16 08:02 4 MG Glucose (Glucose 40% Gel) 15-30 GRAMS 15 GRAMS... UD PRN PO 08/15/16 02:45 09/14/16 02:44 Glucose (Glucose Chew Tab) 4-8 Tablets 4 Tabl... UD PRN PO 08/15/16 02:45 09/14/16 02:44 Dextrose (Dextrose 50% 50ML Syringe) 25-50ML OF 50% DW IV FOR... UD PRN IV 08/15/16 02:45 09/14/16 02:44 Glucagon (Glucagon Inj) 1 mg UD PRN SQ 08/15/16 02:45 09/14/16 02:44 Amlodipine Besylate (Norvasc Tab) 10 mg QAM PO 08/15/16 08:00 09/14/16 08:59 08/19/16 08:03 10 MG Dexamethasone (Decadron Tab) 16 mg BID PO 08/15/16 08:00 09/14/16 08:59 Future Hold 08/15/16 08:13 16 MG Epinephrine (Epipen) 0.3 mg UD PRN IM 08/15/16 03:00 09/14/16 02:59 Gabapentin (Neurontin Tab) 600 mg TID PO 08/15/16 08:00 09/14/16 08:59 08/19/16 13:08 600 MG Levetiracetam (Keppra Tab) 750 mg BID PO 08/15/16 08:00 09/14/16 08:59 08/19/16 08:04 750 MG Magnesium Chloride (Slow-Mag Tab) 64 mg BID PO 08/15/16 08:00 09/14/16 08:59 08/19/16 08:02 64 MG Metoclopramide HCl (Reglan Tab) 10 mg ACHS PRN PO 08/15/16 03:00 09/14/16 02:59 Metoprolol Tartrate (Lopressor Tab) 25 mg BID PO 08/15/16 08:00 09/14/16 08:59 08/19/16 08:03 25 MG Multivitamins 1 tab 1 tab QAM PO 08/15/16 08:00 09/14/16 07:59 08/19/16 08:03 1 TAB Promethazine HCl 12.5 mg/Sodium Chloride 50.5 ml @ 204 mls/hr Q6H PRN IV 08/15/16 03:15 09/14/16 03:14 08/19/16 08:59 204 MLS/HR Ondansetron HCl/ Dextrose (Zofran Inj/D5 50ml) 53 ml @ 200 mls/hr Q6H PRN IV 08/15/16 03:15 09/14/16 03:14 08/16/16 10:55 200 MLS/HR Lorazepam (Ativan Inj) 0.5 mg Q4H PRN IV 08/15/16 03:19 09/14/16 03:18 Miscellaneous 1 ea 1 ea PRN PRN N/A 08/15/16 03:15 08/15/17 03:14 Lorazepam/Syringe (Ativan Inj/ Syringe) 1 ml @ 1 mls/min Q4H PRN IV 08/15/16 03:30 09/14/16 03:29 Miscellaneous Information (Check Fentanyl Patch Placement) 1 ea QS N/A 08/15/16 08:00 09/14/16 07:59 08/19/16 08:04 1 EA Fentanyl (Duragesic Patch) 100 mcg Q2D@0800 TD 08/16/16 08:00 08/30/16 07:59 08/18/16 08:49 100 MCG Miscellaneous (Fentanyl Patch Remove & Waste) 1 ea Q2D@0759 N/A 08/16/16 07:59 09/15/16 07:58 08/18/16 07:59 1 EA Clonidine HCl (Catapres Tab) 0.1 mg BID PRN PO 08/15/16 13:00 09/14/16 12:59 08/19/16 08:03 0.1 MG Miscellaneous Information (Consult Glycemic Management Pharmacy) 1 ea UD PRN N/A 08/15/16 18:33 09/14/16 18:32 Hydromorphone HCl (Dilaudid Inj) 1 mg Q2H PRN IV 08/15/16 20:45 08/29/16 20:44 08/19/16 13:03 1 MG Senna/Docusate Sodium (Senokot S Tab) 1 tab QAM PO 08/16/16 08:00 09/15/16 07:59 08/19/16 08:03 1 TAB Pantoprazole Sodium (Protonix Tab) 40 mg BID PO 08/16/16 20:00 09/15/16 19:59 4/16/17 08:03 40 MG Insulin Aspart (novoLOG ASPART) SLIDING SCALE ACHS SC 08/16/16 16:30 09/15/16 16:29 08/19/16 13:07 4 UNITS Enoxaparin Sodium (Lovenox Inj) 40 mg Q24H SQ 08/17/16 18:00 09/16/16 17:59 08/18/16 17:36 40 MG Insulin Glargine (Lantus Solostar Pen) SEE SCALE QPM SC 08/17/16 21:00 09/16/16 20:59 08/18/16 21:31 12 UNIT Tapentadol (Nucynta Tab) 100 mg Q4H PRN PO 08/17/16 19:00 08/31/16 18:59 08/19/16 08:46 100 MG
[2016-08-19 14:59] VITALS: BP 95/62; PULSE 85; TEMP 36.9; O2SAT 95
[2016-08-19 15:14] LABS: BUN/CREATININE RATIO 10.6 (10-20); CALCIUM 7.9 mg/dl (8.5-10.1); CREATININE 1.8 mg/dl (0.60-1.40); MAGNESIUM 1.7 mg/dl (1.8-2.4)
[2016-08-19 15:15] LABS: POTASSIUM 4.3 mmol/L (3.5-5.1)
[2016-08-19] MEDS ORDERED: MAGNESIUM SULFATE 1GM / D5W 1 GM in PREMIXED IN D5W 100 ML IV SCH (17:00)
[2016-08-19] MEDS: SODIUM CHLORIDE 0.9% 1000ML 1,000 ML IV SCH (17:54)
[2016-08-19] MEDS: ENOXAPARIN 40 MG/0.4 ML SYR SQ SCH (17:54)
[2016-08-19 19:18] VITALS: BP 112/69; PULSE 91; TEMP 36.7; O2SAT 91
[2016-08-19] MEDS: INSULIN GLARGINE SOLOSTAR 100 UNITS/ML 3 ML PEN SC SCH (22:15)
[2016-08-19 23:21] VITALS: BP 146/85; PULSE 85; TEMP 36.5; O2SAT 88
[2016-08-19 23:22] VITALS: O2SAT 96
[2016-08-20] VITALS (8 sets, daily range): BP systolic 153–184; BP diastolic 87–98; PULSE 85–91; TEMP 36.2–36.7; O2SAT 93–98
[2016-08-20] MEDS: CHECK FENTANYL PATCH PLACEMENT SCH ×3 (00:09→17:32)
[2016-08-20] MEDS: TAPENTADOL HCL 50 MG TAB PO PRN ×3 (00:42→20:53)
[2016-08-20] MEDS: SODIUM CHLORIDE 0.9% 1000ML 1,000 ML IV SCH ×3 (01:15→17:33)
[2016-08-20] MEDS: HYDROmorphone INJ 1 MG/ML SYR IV PRN ×9 (01:16→22:28)
[2016-08-20] MEDS: MULTIVITAMIN TAB PO SCH (07:48)
[2016-08-20] MEDS: AMLODIPINE BESYLATE 5 MG TAB PO SCH (07:48)
[2016-08-20] MEDS: PANTOprazole SOD 40 MG TAB PO SCH ×2 (07:48→19:40)
[2016-08-20] MEDS: GABAPENTIN 600 MG TAB PO SCH ×3 (07:48→19:39)
[2016-08-20] MEDS: MAGNESIUM CHLORIDE 64MG DELAYED REL TAB PO SCH ×2 (07:49→19:40)
[2016-08-20] MEDS: METOPROLOL TARTRATE 25 MG TAB PO SCH ×2 (07:49→19:40)
[2016-08-20] MEDS: LEVETIRACETAM 250 MG TAB PO SCH ×2 (07:49→19:39)
[2016-08-20] MEDS: DOCUSATE SODIUM/SENNA 50/8.6MG TAB PO SCH (07:49)
[2016-08-20] MEDS: FENTANYL 100 MCG/HR TDSY TD SCH (09:18)
[2016-08-20] MEDS: FENTANYL PATCH REMOVE & WASTE SCH (09:22)
[2016-08-20] MEDS: INSULIN ASPART 100 UNITS/ML 3 ML PEN SC SCH ×4 (09:29→20:55)
[2016-08-20] MEDS: ONDANSETRON INJ 2 MG/ML 2 ML VIAL IV PRN (11:09)
--- NOTE | 2016-08-20 11:41 | Progress Note ---
Medicine Progress Note Date & Time of Visit: Aug 20, 2016 at 11:33. Subjective patient seen resting in bed, appears comfortable states he had nausea this AM, improved now still having episodes of significant pain, relieved by PRN Dilaudid and Nucynta denies dyspnea, chest pain, dizziness less leg weakness no other symptoms Objective Last 8 Hrs Date Time Temp Pulse Resp B/P Pulse Ox O2 Delivery O2 Flow Rate FiO2 08/20/16 07:34 36.6 86 20 184/98 96 2.0 Physical Exam: General- oriented x 3 , not in distress, speaks in sentences with no effort Neck- no JVD Lungs- clear breath sounds bilaterally, no rales/wheezes Heart- normal rate, regular rhythm; no murmurs Abdomen- normal bowel sounds, nondistended, soft, nontender Extremities- no lower leg edema- no erythema/warmth/tenderness Neuro- alert, oriented x 3; no gross focal deficits Skin- warm & dry Laboratory Results: Last 24 Hours Test 08/19/16 14:37 08/19/16 16:28 08/19/16 20:11 08/20/16 07:55 Sodium Level 143 mmol/L Potassium Level 4.3 mmol/L Chloride Level 103 mmol/L Carbon Dioxide Level 34 mmol/L Anion Gap 6.0 mmol/L Blood Urea Nitrogen 19 mg/dl Creatinine 1.80 mg/dl Est Creatinine Clear Calc Drug Dose 52.9 ml/min Estimated GFR () 49.8 Estimated GFR (Non- 42.9 BUN/Creatinine Ratio 10.6 Random Glucose 145 mg/dl Calcium Level 7.9 mg/dl Magnesium Level 1.7 mg/dl Bedside Glucose 167 mg/dl 146 mg/dl 308 mg/dl Test 08/20/16 11:20 Assessment & Plan 50 year old male with history of St 3 Lung CA on chemo, DM, Gastroparesis, Chronic Pain from Neuropathy, Anemia presenting with persistent nausea/vomiting. INTRACTABLE NAUSEA AND VOMITING Possibly secondary to gastroparesis s/p gastric stimulator May have component of gastritis CT a/p without contrast- suboptimal exam, no obstruction, + mod L pleural effusion with L basilar atelectasis, + fluid overload including body wall edema and trace free fluid in the pelvis, no evidence acute appendicitis KUB showed fecal retention; had bowel movement after that -- has received Emend has intermittent nausea - continue Senokot S daily, Protonix 40 mg BID, Reglan, PRN Phenergan, PRN Zofran GI consulted CHRONIC PAIN Due to diabetic polyneuropathy Was seen by pain management last admission - re evaluated by Pain Mgt Nucynta increased encouraged to decrease reliance with Dilaudid IV Continued on Fentanyl patch, Keppra, Gabapentin - with intermittent significant pain will request Pain Management to re-evaluate patient ACUTE RENAL FAILURE on CKD 3 likely pre renal continue IV fluids crea pending HYPOKALEMIA/ HYPOMAGNESEMIA Secondary to GI loss check mg and k HYPERTENSION Continued on amlodipine (dose increased from 5 to 10 mg qam) and metoprolol PRN clonidine added ANEMIA OF CHRONIC DISEASE Hg is 11.1 ->9.2 -> 9.0 (may be dilutional from IVF's); stable from last discharge STAGE III NON SMALL CELL LUNG CANCER S/p lobectomy 05/25/16 at [facility] Currently on chemo last treatment 07/27/[address] Amanda -- patient requests to continue with Chemo as inpatient to manage side/adverse effects patient states he is accepting of possible side effects/adverse effects but would like to continue chemotherapy to address his Lung CA -- sent a page to Dr. Amanda re: plan of care, awaiting call back INSULIN DEPENDENT DM TYPE 2 Recent A1c = 10.4 on 08/06/16 Lantus and Insulin sliding scale coverage Pharmacy consulted for glycemic control with improvement of BSG's MILD LEG EDEMA Leg US: no DVT DVT PROPHYLAXIS Lovenox CODE STATUS Full code per patient's preference on recent admission DISPOSITION lives at home with family Follows with Dr. Burgess for primary care Dr. Amanda for Primary Care Would like to transition to [facility] for Pain Management Current Inpatient Medications: Current Inpatient Medications Medications (Trade) Dose Ordered Sig/Cal Route Start Time Stop Time Status Last Admin Dose Admin Acetaminophen (Tylenol Tab) 650 mg Q4H PRN PO 08/15/16 02:45 09/14/16 02:44 Al Hydrox/Mg Hydrox/Simethicone (Maalox Max Susp) 15 ml Q4H PRN PO 08/15/16 02:45 09/14/16 02:44 Magnesium Hydroxide (Milk Of Magnesia Susp) 30 ml Q6H PRN PO 08/15/16 02:45 09/14/16 02:44 Polyethylene (Miralax Powder Packet) 17 gm DAILY PRN PO 08/15/16 03:30 09/14/16 03:29 Zolpidem Tartrate (Ambien Tab) 5 mg HSZ PRN PO 08/15/16 02:45 09/14/16 02:44 Ondansetron HCl (Zofran Inj) 4 mg Q6H PRN IV 08/15/16 02:45 09/14/16 02:44 08/20/16 11:09 4 MG Glucose (Glucose 40% Gel) 15-30 GRAMS 15 GRAMS... UD PRN PO 08/15/16 02:45 09/14/16 02:44 Glucose (Glucose Chew Tab) 4-8 Tablets 4 Tabl... UD PRN PO 08/15/16 02:45 09/14/16 02:44 Dextrose (Dextrose 50% 50ML Syringe) 25-50ML OF 50% DW IV FOR... UD PRN IV 08/15/16 02:45 09/14/16 02:44 Glucagon (Glucagon Inj) 1 mg UD PRN SQ 08/15/16 02:45 09/14/16 02:44 Amlodipine Besylate (Norvasc Tab) 10 mg QAM PO 08/15/16 08:00 09/14/16 08:59 08/20/16 07:48 10 MG Dexamethasone (Decadron Tab) 16 mg BID PO 08/15/16 08:00 09/14/16 08:59 Future Hold 08/15/16 08:13 16 MG Epinephrine (Epipen) 0.3 mg UD PRN IM 08/15/16 03:00 09/14/16 02:59 Gabapentin (Neurontin Tab) 600 mg TID PO 08/15/16 08:00 09/14/16 08:59 08/20/16 07:48 600 MG Levetiracetam (Keppra Tab) 750 mg BID PO 08/15/16 08:00 09/14/16 08:59 08/20/16 07:49 750 MG Magnesium Chloride (Slow-Mag Tab) 64 mg BID PO 08/15/16 08:00 09/14/16 08:59 08/20/16 07:49 64 MG Metoclopramide HCl (Reglan Tab) 10 mg ACHS PRN PO 08/15/16 03:00 09/14/16 02:59 Metoprolol Tartrate (Lopressor Tab) 25 mg BID PO 08/15/16 08:00 09/14/16 08:59 08/20/16 07:49 25 MG Multivitamins 1 tab 1 tab QAM PO 08/15/16 08:00 09/14/16 07:59 08/20/16 07:48 1 TAB Promethazine HCl 12.5 mg/Sodium Chloride 50.5 ml @ 204 mls/hr Q6H PRN IV 08/15/16 03:15 09/14/16 03:14 08/19/16 20:33 204 MLS/HR Ondansetron HCl/ Dextrose (Zofran Inj/D5 50ml) 53 ml @ 200 mls/hr Q6H PRN IV 08/15/16 03:15 09/14/16 03:14 08/16/16 10:55 200 MLS/HR Lorazepam (Ativan Inj) 0.5 mg Q4H PRN IV 08/15/16 03:19 09/14/16 03:18 Miscellaneous 1 ea 1 ea PRN PRN N/A 08/15/16 03:15 08/15/17 03:14 Lorazepam/Syringe (Ativan Inj/ Syringe) 1 ml @ 1 mls/min Q4H PRN IV 08/15/16 03:30 09/14/16 03:29 Miscellaneous Information (Check Fentanyl Patch Placement) 1 ea QS N/A 08/15/16 08:00 09/14/16 07:59 08/20/16 09:19 1 EA Fentanyl (Duragesic Patch) 100 mcg Q2D@0800 TD 08/16/16 08:00 08/30/16 07:59 08/20/16 09:18 100 MCG Miscellaneous (Fentanyl Patch Remove & Waste) 1 ea Q2D@0759 N/A 08/16/16 07:59 09/15/16 07:58 08/20/16 09:22 1 EA Clonidine HCl (Catapres Tab) 0.1 mg BID PRN PO 08/15/16 13:00 09/14/16 12:59 08/19/16 08:03 0.1 MG Miscellaneous Information (Consult Glycemic Management Pharmacy) 1 ea UD PRN N/A 08/15/16 18:33 09/14/16 18:32 Hydromorphone HCl (Dilaudid Inj) 1 mg Q2H PRN IV 08/15/16 20:45 08/29/16 20:44 08/20/16 09:35 1 MG Senna/Docusate Sodium (Senokot S Tab) 1 tab QAM PO 08/16/16 08:00 09/15/16 07:59 08/20/16 07:49 1 TAB Pantoprazole Sodium (Protonix Tab) 40 mg BID PO 08/16/16 20:00 09/15/16 19:59 08/20/16 07:48 40 MG Insulin Aspart (novoLOG ASPART) SLIDING SCALE ACHS SC 08/16/16 16:30 09/15/16 16:29 08/20/16 09:29 13 UNITS Enoxaparin Sodium (Lovenox Inj) 40 mg Q24H SQ 08/17/16 18:00 09/16/16 17:59 08/19/16 17:54 40 MG Insulin Glargine (Lantus Solostar Pen) SEE SCALE QPM SC 08/17/16 21:00 09/16/16 20:59 08/19/16 22:15 12 UNIT Tapentadol 100 mg 100 mg Q4H PRN PO 08/17/16 19:00 08/31/16 18:59 08/20/16 00:42 100 MG Sodium Chloride (Nss 1000ml) 1,000 ml @ 125 mls/hr Q8H IV 08/19/16 17:00 09/18/16 16:59 08/20/16 09:30 125 MLS/HR
--- NOTE | 2016-08-20 12:23 | Pharmacy Progress Note ---
Glycemic Control: Progress Nt Date of Service Aug 20, 2016. Scope Glycemic Pharmacist consulted by Holly Watkins PA-C on 08/15/16 for glycemic control and to write orders per [facility] inpatient glycemic control protocol. Objective Accuchecks BSG (last 24hrs): Test 08/19/16 14:37 08/19/16 16:28 08/19/16 20:11 08/20/16 07:55 Random Glucose 145 mg/dl (70-99) Bedside Glucose 167 mg/dl (70-99) 146 mg/dl (70-99) 308 mg/dl (70-99) Test 08/20/16 11:20 08/20/16 11:36 Bedside Glucose 131 mg/dl (70-99) Laboratory Data (last 24hrs) Test 08/19/16 14:37 08/20/16 11:20 Anion Gap 6.0 mmol/L BUN/Creatinine Ratio 10.6 Blood Urea Nitrogen 19 mg/dl Creatinine 1.80 mg/dl Potassium Level 4.3 mmol/L Sodium Level 143 mmol/L HbA1c: Item Value Date Time Hemoglobin A1c 10.4 % H 08/06/16 0648 Recent Pertinent Medications Outpatient Anti-diabetic Regimen: * Lantus 25 units SQ HS * Novolog 1-10units with meals (dose based on food intake/BG value) The patient is currently receiving: * Basal insulin: Lantus 12 units every 24 hours given at bedtime * Correctional Insulin: NovoLog Correction per scale ACHS Goal Range: Low 140 mg/dL - High 180 mg/dL Correction Factor: 30 mg/dL/unit * Prandial insulin: Per carb ratio of 1 unit per 10 grams CHO consumed Risk Factors for Insulin Resistance: * Diet * Baseline poor control/insulin resistance Assessment & Plan ASSESSMENT: * Patient is currently receiving an average of ~30 units of insulin per day * 12 units of basal insulin * 16 units of prandial/correctional insulin * BSGs ranging 133 - 308 over the past 24hrs * Anticipating insulin regimen will need increased for the next 24hrs d/t : * AM Fasting BSG = 308mg/dl therefore Basal insulin needs increased. Outpatient basal insulin dosing is 25 units HS. Pt is currently ordered half of this dosing d/t repeated hypo on 08/17 & 08/18. * Total daily dose = ~30 units. Insulin regimen is currently evenly distributed 50%:50% basal:prandial to prevent hypo/hyperglycemia * Post-prandial BSGs are elevated/BSGs rise throughout the day therefore Tighten CF/CR * ADA & AACE recommend a goal blood sugar range 140-180 mg/dl for the majority of critically ill & non-critically ill patients. However, more stringent targets may be selected in individual cases. Will utilize more stringent target of 120-150mg/dl base on age. Will keep the "low" end of the goal range elevated to help prevent hypo PLAN FOR INPATIENT GLYCEMIC CONTROL: * Slightly increase Basal insulin with Lantus 15 units SQ HS * NovoLog per scale ACHS or Q6hrs while NPO * Goal Range: Low 120 mg/dL - High 150 mg/dL * TIGHTEN Correction Factor: 25 mg/dL/unit * TIGHTEN Nutritional / Prandial insulin per carb ratio of 1 unit per 8 grams CHO consumed * Please note that the plan above was derived based on current level of insulin resistance and hospital stress. These recommendations are appropriate for inpatient admission only. Plan of care upon discharge will need to be reassessed to avoid potential outpatient hypo/hyperglycemia. Thank you.
[2016-08-20 12:28] LABS: BASO % 0.4 %; BASO ABS # 0.02 K/uL (0-0.2); EOS % 7.2 %; HEMATOCRIT 24.9 % (42-52); IG% 0.4 %; LYMPH % 23.3 %; LYMPH ABS # 1.16 K/uL (1.2-3.4); MEAN CELL VOLUME 83.3 fL (80-100); MEAN CORPUSCULAR HEMOGLOBIN 28.4 pg (25-34); MEAN CORPUSCULAR HGB CONC 34.1 g/dl (32-36); MEAN PLATELET VOLUME 8.8 fL (7.4-10.4); MONO % 9.7 %; PLATELET COUNT 157 K/uL (130-400); RED BLOOD COUNT 2.99 M/uL (4.7-6.1); WHITE BLOOD COUNT 4.97 K/uL (4.8-10.8)
[2016-08-20 12:55] LABS: BUN/CREATININE RATIO 12.4 (10-20); CALCIUM 8.1 mg/dl (8.5-10.1); CREATININE 1.4 mg/dl (0.60-1.40); MAGNESIUM 1.6 mg/dl (1.8-2.4); POTASSIUM 4.2 mmol/L (3.5-5.1)
[2016-08-20 12:59] LABS: COMPLETE YES
[2016-08-20] MEDS: ENOXAPARIN 40 MG/0.4 ML SYR SQ SCH (17:33)
[2016-08-20] MEDS ORDERED: MAGNESIUM SULFATE 1GM / D5W 1 GM in PREMIXED IN D5W 100 ML IV SCH (18:30)
[2016-08-20] MEDS: INSULIN GLARGINE SOLOSTAR 100 UNITS/ML 3 ML PEN SC SCH (20:55)
[2016-08-21] MEDS: CHECK FENTANYL PATCH PLACEMENT SCH ×4 (00:01→23:32)
[2016-08-21] MEDS: HYDROmorphone INJ 1 MG/ML SYR IV PRN ×3 (01:09→08:26)
[2016-08-21] MEDS: ONDANSETRON INJ 2 MG/ML 2 ML VIAL IV PRN ×2 (02:33→08:26)
[2016-08-21 04:00] VITALS: BP 150/78; PULSE 87; TEMP 36.8; O2SAT 92
[2016-08-21 06:04] LABS: CREATININE 1.5 mg/dl (0.60-1.40)
[2016-08-21 07:16] VITALS: BP 156/85; PULSE 89; TEMP 37; O2SAT 98
[2016-08-21] MEDS: AMLODIPINE BESYLATE 5 MG TAB PO SCH (08:26)
[2016-08-21] MEDS: MAGNESIUM CHLORIDE 64MG DELAYED REL TAB PO SCH ×2 (08:27→20:20)
[2016-08-21] MEDS: LEVETIRACETAM 250 MG TAB PO SCH ×2 (08:27→20:19)
[2016-08-21] MEDS: DOCUSATE SODIUM/SENNA 50/8.6MG TAB PO SCH ×2 (08:27→08:37)
[2016-08-21] MEDS: MULTIVITAMIN TAB PO SCH (08:27)
[2016-08-21] MEDS: METOPROLOL TARTRATE 25 MG TAB PO SCH ×2 (08:27→20:19)
[2016-08-21] MEDS: PANTOprazole SOD 40 MG TAB PO SCH ×2 (08:27→20:19)
[2016-08-21] MEDS: GABAPENTIN 600 MG TAB PO SCH ×3 (08:28→20:20)
[2016-08-21] MEDS: SODIUM CHLORIDE 0.9% 1000ML 1,000 ML IV SCH (08:31)
[2016-08-21] MEDS: INSULIN ASPART 100 UNITS/ML 3 ML PEN SC SCH ×4 (08:35→21:00)
[2016-08-21] MEDS: TAPENTADOL HCL 50 MG TAB PO PRN ×3 (10:11→21:01)
--- NOTE | 2016-08-21 11:19 | Pharmacy Progress Note ---
Glycemic Control: Progress Nt Date of Service Aug 21, 2016. Scope Glycemic Pharmacist consulted by Gomez Watkins PA-C on 08/15/16 for glycemic control and to write orders per [facility] inpatient glycemic control protocol. Objective Accuchecks BSG (last 24hrs): Test 08/20/16 11:36 08/20/16 12:08 08/20/16 16:46 08/20/16 20:00 Bedside Glucose 131 mg/dl (70-99) 121 mg/dl (70-99) 219 mg/dl (70-99) Random Glucose 107 mg/dl (70-99) Test 08/21/16 07:39 Bedside Glucose 273 mg/dl (70-99) Laboratory Data (last 24hrs) HbA1c: Item Value Date Time Hemoglobin A1c 10.4 % H 08/06/16 0648 Recent Pertinent Medications Outpatient Anti-diabetic Regimen: * Lantus 25 units SQ HS * Novolog 1-10units with meals (dose based on food intake/BG value) The patient is currently receiving: * Basal insulin: Lantus 15 units every 24 hours given at bedtime * Correctional Insulin: NovoLog Correction per scale ACHS Goal Range: Low 120 mg/dL - High 150 mg/dL Correction Factor: 25 mg/dL/unit * Prandial insulin: Per carb ratio of 1 unit per 8 grams CHO consumed Risk Factors for Insulin Resistance: * Diet * Baseline poor control/insulin resistance Assessment & Plan ASSESSMENT: * Patient is currently receiving an average of ~40 units of insulin per day * 15 units of basal insulin * 25 units of prandial/correctional insulin * BSGs ranging 133 - 273 over the past 24hrs * Anticipating insulin regimen will need increased for the next 24hrs d/t : * AM Fasting BSG = 273mg/dl therefore Basal insulin needs increased. Outpatient basal insulin dosing is 25 units HS. Pt is currently decreased basal insulin as compared to outpatient dosing d/t repeated hypo on 08/17 & 08/18 after receiving Lantus 25 units HS * Total daily dose = ~40 units. Insulin regimen is currently evenly distributed 50%:50% basal:prandial to prevent hypo/hyperglycemia. Increasing basal insulin will help redistribute regimen by reducing the amount of correctional insulin given * Post-prandial BSGs are in range, no change needed to CF/CR * ADA & AACE recommend a goal blood sugar range 140-180 mg/dl for the majority of critically ill & non-critically ill patients. However, more stringent targets may be selected in individual cases. Will utilize more stringent target of 120-150mg/dl base on age. Will keep the "low" end of the goal range elevated to help prevent hypo PLAN FOR INPATIENT GLYCEMIC CONTROL: * Slightly increase Basal insulin with Lantus 20 units SQ HS --> give first dose with dinner today and then HS tomorrow * No Change to NovoLog per scale ACHS or Q6hrs while NPO * Goal Range: Low 120 mg/dL - High 150 mg/dL * Correction Factor: 25 mg/dL/unit * Nutritional / Prandial insulin per carb ratio of 1 unit per 8 grams CHO consumed * Please note that the plan above was derived based on current level of insulin resistance and hospital stress. These recommendations are appropriate for inpatient admission only. Plan of care upon discharge will need to be reassessed to avoid potential outpatient hypo/hyperglycemia. Thank you.
[2016-08-21] MEDS ORDERED: FOSAPREPITANT DIMEGLUMINE INJ 150 MG in SODIUM CHLORIDE 0.9% 150ML 145 ML IV ONE (11:30)
[2016-08-21 11:38] VITALS: BP 166/93; PULSE 91; TEMP 37; O2SAT 94
[2016-08-21] MEDS: HYDROmorphone HCL 2 MG TAB PO PRN ×2 (12:37→18:08)
[2016-08-21] MEDS ORDERED: HYDROmorphone INJ 0.5 MG/0.5 ML SYR IV PRN (14:00)
[2016-08-21 15:28] VITALS: BP 161/95; PULSE 83; TEMP 36.5; O2SAT 95
--- NOTE | 2016-08-21 16:30 | Progress Note ---
Medicine Progress Note Date & Time of Visit: Aug 21, 2016 at 16:13. Subjective Patient seen and examined. Still with shooting pains. Still with nausea and vomiting. Notes that the Emend that he received earlier in his hospitalization helped with nausea. Worried about chemotherapy and his lung cancer. Objective Last 8 Hrs Date Time Temp Pulse Resp B/P Pulse Ox O2 Delivery O2 Flow Rate FiO2 08/21/16 15:28 36.5 83 16 161/95 95 Room Air 08/21/16 11:38 37.0 91 16 166/93 94 Room Air Physical Exam: General-awake; alert; NAD Eyes-EOMI; no scleral icterus Neck-no stridor; trachea midline Lungs-CTA bilaterally; no wheezes/crackles Heart-RRR; no m/r/g Abdomen-soft; NTND; nBS Extremities-no c/c/e; no deformity Neuro-no focal deficits; ambulating hallway Laboratory Results: Last 24 Hours Test 08/20/16 16:46 08/20/16 20:00 08/21/16 05:23 08/21/16 07:39 Bedside Glucose 121 mg/dl 219 mg/dl 273 mg/dl Creatinine 1.50 mg/dl Est Creatinine Clear Calc Drug Dose 63.2 ml/min Estimated GFR () 62.0 Estimated GFR (Non- 53.5 Test 08/21/16 11:36 Bedside Glucose 287 mg/dl Assessment & Plan 50 year old male with history of St 3 Lung CA on chemo, DM, Gastroparesis, Chronic Pain from Neuropathy, Anemia who presented with persistent nausea/ vomiting. INTRACTABLE NAUSEA AND VOMITING Possibly secondary to gastroparesis (s/p gastric stimulator) vs chemotherapy CT a/p without contrast- suboptimal exam, no obstruction, + mod L pleural effusion with L basilar atelectasis, + fluid overload including body wall edema and trace free fluid in the pelvis, no evidence acute appendicitis KUB showed fecal retention; had bowel movement after that GI consulted Emend dose given 08/21 Continue Zofran, Promethazine and Reglan PRN Continue Senokot S daily, Protonix 40 mg BID, Miralax PRN, Milk of Mag PRN CHRONIC PAIN Due to diabetic polyneuropathy Pain management consulted Nucynta increased Restart PO Dilaudid Continue Fentanyl patch, Gabapentin Decrease IV Dilaudid ACUTE RENAL FAILURE (CKD 3) Resolved with IVF's Creatinine during previous admission was as high as 2.6 Baseline creatinine appears to be ~1.3-1.6 HYPOKALEMIA/ HYPOMAGNESEMIA Resolved Continue magnesium supplementation HYPERTENSION Continued on amlodipine (dose increased from 5 to 10 mg) and metoprolol ANEMIA OF CHRONIC DISEASE Baseline Hgb ~8-9 STAGE III NON SMALL CELL LUNG CANCER S/p lobectomy 05/25/16 at [place] Currently on chemo last treatment 07/27/[address] Amanda INSULIN DEPENDENT DM TYPE 2 Recent A1c = 10.4 on 08/06/16 Lantus and Insulin sliding scale coverage Pharmacy consulted for glycemic control DVT PROPHYLAXIS Lovenox CODE STATUS Full code Anticipate discharge home. Consultants: Gastroenterology Pain Management Procedures: CT head Normal noncontrast head CT for age. CT a/p 1. Significantly suboptimal examination without oral and IV contrast. 2. There is no bowel obstruction. 3. There is a moderate left pleural effusion with left basilar atelectasis. 4. There is evidence of fluid overload including body wall edema and trace free fluid in the pelvis. 5. The appendix appears short and thick, measuring 11 mm in diameter. There is no convincing evidence of acute appendicitis. LE Venous Doppler No DVT within the right or left lower extremity. Current Inpatient Medications: Current Inpatient Medications Medications (Trade) Dose Ordered Sig/Cal Route Start Time Stop Time Status Last Admin Dose Admin Acetaminophen (Tylenol Tab) 650 mg Q4H PRN PO 08/15/16 02:45 09/14/16 02:44 Al Hydrox/Mg Hydrox/Simethicone (Maalox Max Susp) 15 ml Q4H PRN PO 08/15/16 02:45 09/14/16 02:44 Magnesium Hydroxide (Milk Of Magnesia Susp) 30 ml Q6H PRN PO 08/15/16 02:45 09/14/16 02:44 Polyethylene (Miralax Powder Packet) 17 gm DAILY PRN PO 08/15/16 03:30 09/14/16 03:29 Zolpidem Tartrate (Ambien Tab) 5 mg HSZ PRN PO 08/15/16 02:45 09/14/16 02:44 Ondansetron HCl (Zofran Inj) 4 mg Q6H PRN IV 08/15/16 02:45 09/14/16 02:44 08/21/16 08:26 4 MG Glucose (Glucose 40% Gel) 15-30 GRAMS 15 GRAMS... UD PRN PO 08/15/16 02:45 09/14/16 02:44 Glucose (Glucose Chew Tab) 4-8 Tablets 4 Tabl... UD PRN PO 08/15/16 02:45 09/14/16 02:44 Dextrose (Dextrose 50% 50ML Syringe) 25-50ML OF 50% DW IV FOR... UD PRN IV 08/15/16 02:45 09/14/16 02:44 Glucagon (Glucagon Inj) 1 mg UD PRN SQ 08/15/16 02:45 09/14/16 02:44 Amlodipine Besylate (Norvasc Tab) 10 mg QAM PO 08/15/16 08:00 09/14/16 08:59 08/21/16 08:26 10 MG Dexamethasone (Decadron Tab) 16 mg BID PO 08/15/16 08:00 09/14/16 08:59 Future Hold 08/15/16 08:13 16 MG Epinephrine (Epipen) 0.3 mg UD PRN IM 08/15/16 03:00 09/14/16 02:59 Gabapentin (Neurontin Tab) 600 mg TID PO 08/15/16 08:00 09/14/16 08:59 08/21/16 14:54 600 MG Levetiracetam (Keppra Tab) 750 mg BID PO 08/15/16 08:00 09/14/16 08:59 08/21/16 08:27 750 MG Magnesium Chloride (Slow-Mag Tab) 64 mg BID PO 08/15/16 08:00 09/14/16 08:59 08/21/16 08:27 64 MG Metoclopramide HCl (Reglan Tab) 10 mg ACHS PRN PO 08/15/16 03:00 09/14/16 02:59 Metoprolol Tartrate (Lopressor Tab) 25 mg BID PO 08/15/16 08:00 09/14/16 08:59 08/21/16 08:27 25 MG Multivitamins 1 tab 1 tab QAM PO 08/15/16 08:00 09/14/16 07:59 08/21/16 08:27 1 TAB Promethazine HCl 12.5 mg/Sodium Chloride 50.5 ml @ 204 mls/hr Q6H PRN IV 08/15/16 03:15 09/14/16 03:14 08/19/16 20:33 204 MLS/HR Ondansetron HCl/ Dextrose (Zofran Inj/D5 50ml) 53 ml @ 200 mls/hr Q6H PRN IV 08/15/16 03:15 09/14/16 03:14 08/16/16 10:55 200 MLS/HR Lorazepam (Ativan Inj) 0.5 mg Q4H PRN IV 08/15/16 03:19 09/14/16 03:18 Miscellaneous 1 ea 1 ea PRN PRN N/A 08/15/16 03:15 08/15/17 03:14 Lorazepam/Syringe (Ativan Inj/ Syringe) 1 ml @ 1 mls/min Q4H PRN IV 08/15/16 03:30 09/14/16 03:29 Miscellaneous Information (Check Fentanyl Patch Placement) 1 ea QS N/A 08/15/16 08:00 09/14/16 07:59 08/21/16 08:33 1 EA Fentanyl (Duragesic Patch) 100 mcg Q2D@0800 TD 08/16/16 08:00 08/30/16 07:59 08/20/16 09:18 100 MCG Miscellaneous (Fentanyl Patch Remove & Waste) 1 ea Q2D@0759 N/A 08/16/16 07:59 09/15/16 07:58 08/20/16 09:22 1 EA Clonidine HCl (Catapres Tab) 0.1 mg BID PRN PO 08/15/16 13:00 09/14/16 12:59 08/19/16 08:03 0.1 MG Miscellaneous Information (Consult Glycemic Management Pharmacy) 1 ea UD PRN N/A 08/15/16 18:33 09/14/16 18:32 Senna/Docusate Sodium (Senokot S Tab) 1 tab QAM PO 08/16/16 08:00 09/15/16 07:59 08/20/16 07:49 1 TAB Pantoprazole Sodium (Protonix Tab) 40 mg BID PO 08/16/16 20:00 09/15/16 19:59 08/21/16 08:27 40 MG Insulin Aspart (novoLOG ASPART) SLIDING SCALE ACHS SC 08/16/16 16:30 09/15/16 16:29 08/21/16 12:40 10 UNITS Enoxaparin Sodium 40 mg 40 mg Q24H SQ 08/17/16 18:00 09/16/16 17:59 08/20/16 17:33 40 MG Sodium Chloride (Nss 1000ml) 1,000 ml @ 60 mls/hr [id number] IV 08/19/16 17:00 09/18/16 16:59 08/21/16 08:31 60 MLS/HR Insulin Glargine (Lantus Solostar Pen) 20 unit QPM SC 08/21/16 16:45 09/20/16 16:44 Hydromorphone HCl (Dilaudid Inj) 0.5 mg Q8 PRN IV 08/21/16 14:00 09/04/16 13:59 Tapentadol (Nucynta Tab) 150 mg Q6 PRN PO 08/21/16 12:00 09/04/16 11:59 08/21/16 14:56 150 MG Hydromorphone HCl (Dilaudid Tab) 4 mg Q6 PRN PO 08/21/16 10:15 09/04/16 10:14 08/21/16 12:37 4 MG Insulin Aspart (novoLOG ASPART) SLIDING SCALE 0200 SC 08/22/16 02:00 09/21/16 01:59
[2016-08-21] MEDS ORDERED: INSULIN GLARGINE SOLOSTAR 100 UNITS/ML 3 ML PEN SC SCH (16:45)
[2016-08-21] MEDS: ENOXAPARIN 40 MG/0.4 ML SYR SQ SCH (18:09)
[2016-08-21 19:34] VITALS: BP 123/76; PULSE 91; TEMP 36.8; O2SAT 91
[2016-08-21 23:06] VITALS: BP 121/72; PULSE 80; TEMP 36.5; O2SAT 92
[2016-08-22] MEDS: SODIUM CHLORIDE 0.9% 1000ML 1,000 ML IV SCH (01:20)
[2016-08-22] MEDS ORDERED: INSULIN ASPART 100 UNITS/ML 3 ML PEN SC SCH (02:00)
[2016-08-22] MEDS: HYDROmorphone HCL 2 MG TAB PO PRN ×3 (04:43→18:30)
[2016-08-22] MEDS: TAPENTADOL HCL 50 MG TAB PO PRN ×3 (05:39→21:38)
[2016-08-22 06:20] LABS: MEAN CELL VOLUME 84.7 fL (80-100); MEAN CORPUSCULAR HEMOGLOBIN 28.3 pg (25-34); MEAN CORPUSCULAR HGB CONC 33.5 g/dl (32-36); PLATELET COUNT 196 K/uL (130-400); RED BLOOD COUNT 3.07 M/uL (4.7-6.1); WHITE BLOOD COUNT 5.26 K/uL (4.8-10.8)
[2016-08-22 07:13] VITALS: BP 155/89; PULSE 85; TEMP 36.6; O2SAT 91
[2016-08-22 07:19] LABS: CALCIUM 8.5 mg/dl (8.5-10.1); CREATININE 1.4 mg/dl (0.60-1.40); MAGNESIUM 1.6 mg/dl (1.8-2.4); POTASSIUM 4.1 mmol/L (3.5-5.1)
[2016-08-22] MEDS: DOCUSATE SODIUM/SENNA 50/8.6MG TAB PO SCH (08:00)
[2016-08-22] MEDS: PROMETHAZINE HCL 25 MG TAB PO PRN (08:32)
[2016-08-22] MEDS: MAGNESIUM CHLORIDE 64MG DELAYED REL TAB PO SCH ×2 (08:33→19:46)
[2016-08-22] MEDS: FENTANYL PATCH REMOVE & WASTE SCH (08:34)
[2016-08-22] MEDS: FENTANYL 100 MCG/HR TDSY TD SCH (08:34)
[2016-08-22] MEDS: CHECK FENTANYL PATCH PLACEMENT SCH ×2 (08:35→15:34)
[2016-08-22] MEDS: INSULIN ASPART 100 UNITS/ML 3 ML PEN SC SCH ×4 (08:38→21:00)
[2016-08-22] MEDS: AMLODIPINE BESYLATE 5 MG TAB PO SCH (08:44)
[2016-08-22] MEDS: MULTIVITAMIN TAB PO SCH (08:45)
[2016-08-22] MEDS: PANTOprazole SOD 40 MG TAB PO SCH ×2 (08:45→19:47)
[2016-08-22] MEDS: GABAPENTIN 600 MG TAB PO SCH ×3 (08:45→19:48)
[2016-08-22] MEDS: METOPROLOL TARTRATE 25 MG TAB PO SCH ×2 (08:45→19:48)
[2016-08-22] MEDS: LEVETIRACETAM 250 MG TAB PO SCH ×2 (08:46→19:47)
[2016-08-22 11:35] VITALS: BP 145/84; PULSE 80; TEMP 36.6; O2SAT 96
--- NOTE | 2016-08-22 11:51 | Pain Management Progress Note ---
Pain Management Progress Note Date of Service Aug 22, 2016. Subjective Jeff was seen on rounds this morning. He continues complaining of experiencing nausea and vomiting and epigastric pain. He uses IV hydromorphone early this morning. He denies any side effects to the increased dose of Tapentadol alternating with hydromorphone. He reports that the regimen worked well until he skipped several dosages of his hydromorphone because he fell asleep and therefore had increased pain requiring IV hydromorphone. He would still like to pursue the intrathecal opioid infusion pump Objective Vital Signs: Last Vital Signs Documentation Date Time Temp Pulse Resp B/P Pulse Ox O2 Delivery O2 Flow Rate FiO2 08/22/16 11:35 36.6 80 16 145/84 96 Room Air 08/20/16 16:00 2.0 Physical Exam: Jeff is awake and alert. He is ambulating in the hallway pulling his Walkman IV pole behind. He does not appear to be pain distress. Laboratory (Last CBC): 08/22/16 05:09 Assessment 1. Gastroparesis. 2. Recently diagnosed malignancy. 3. Opioid dependence. Recommendations 1. Recommend discontinuation of IV hydromorphone. 2. Increase oral hydromorphone 6 mg to alternate with Tapentadol. 3. He is getting appointment to be followed up at [facility] next Saturday to start the process of intrathecal pump delivery system implantation. [employer] Voice Recognition This chart was completed in part utilizing [employer] Voice Recognition Software. Random word insertions, pronoun errors, and incomplete sentences are an occasional consequence of this system due to software limitations and ambient noise. Any questions or concerns about the content, text or information contained within the body of this dictation should be directly addressed to the provider for clarification.
[2016-08-22] MEDS: ONDANSETRON 4 MG TAB PO PRN (12:26)
--- NOTE | 2016-08-22 13:22 | Pharmacy Progress Note ---
Glycemic Control: Progress Nt Date of Service Aug 22, 2016. Scope Glycemic Pharmacist consulted by Holly Watkins PA-C on 08/15/16 for glycemic control and to write orders per [facility] inpatient glycemic control protocol. Objective Accuchecks BSG (last 24hrs): Test 08/21/16 16:32 08/21/16 19:46 08/22/16 05:09 08/22/16 07:28 Bedside Glucose 228 mg/dl (70-99) 264 mg/dl (70-99) 264 mg/dl (70-99) Random Glucose 257 mg/dl (70-99) Test 08/22/16 11:21 Bedside Glucose 169 mg/dl (70-99) Laboratory Data (last 24hrs) HbA1c: Item Value Date Time Hemoglobin A1c 10.4 % H 08/06/16 0648 Recent Pertinent Medications Outpatient Anti-diabetic Regimen: * Lantus 25 units SQ HS * Novolog 1-10units with meals (dose based on food intake/BG value) The patient is currently receiving: * Basal insulin: Lantus 20 units every 24 hours given at bedtime * Correctional Insulin: NovoLog Correction per scale ACHS Goal Range: Low 120 mg/dL - High 140 mg/dL Correction Factor: 20 mg/dL/unit * Prandial insulin: Per carb ratio of 1 unit per 6 grams CHO consumed Risk Factors for Insulin Resistance: * Diet * Baseline poor control/insulin resistance Assessment & Plan ASSESSMENT: * Patient is currently receiving an average of ~50 units of insulin per day * 20 units of basal insulin * 25 units of prandial/correctional insulin * BSGs ranging 169 - 286 over the past 24hrs * Anticipating insulin regimen will need increased for the next 24hrs d/t : * AM Fasting BSG = 264mg/dl despite basal dose increase yesterday. Continue to titrate upwards to goal fasting BSG of less than 140mg/dl. Outpatient basal insulin dosing is 25 units HS. Pt is currently ordered decreased basal insulin as compared to outpatient dosing d/t repeated hypo on 08/17 & 08/18 after receiving outpatient dosing. Pt with IVAN on admission and was receiving dxm which was d/c after one dose. These changes may have contributed to hypo. Seems reasonable based on patient condition and BSG trends to titrate up to/resume outpatient dosing of 25 units HS. * Total daily dose = ~55 units. Insulin regimen is currently evenly distributed 50%:50% basal:prandial to prevent hypo/hyperglycemia. Increasing basal insulin will help redistribute regimen by reducing the amount of correctional insulin given * Post-prandial BSGs are in range, no change needed to CF/CR * Of note, patient did refuse correctional insulin coverage at HS last evening d/t N/V. Pt also refused overnight accucheck+coverage. Will d/c overnight check. * ADA & AACE recommend a goal blood sugar range 140-180 mg/dl for the majority of critically ill & non-critically ill patients. However, more stringent targets may be selected in individual cases. Will utilize more stringent target of 120-150mg/dl base on age. Will keep the "low" end of the goal range elevated to help prevent hypo PLAN FOR INPATIENT GLYCEMIC CONTROL: * Slightly increase Basal insulin with Lantus 25 units SQ HS --> give first dose with dinner today and then HS tomorrow * No Change to NovoLog per scale ACHS or Q6hrs while NPO * Goal Range: Low 120 mg/dL - High 140 mg/dL * Correction Factor: 20 mg/dL/unit * Nutritional / Prandial insulin per carb ratio of 1 unit per 6 grams CHO consumed * Please note that the plan above was derived based on current level of insulin resistance and hospital stress. These recommendations are appropriate for inpatient admission only. Plan of care upon discharge will need to be reassessed to avoid potential outpatient hypo/hyperglycemia. Thank you.
[2016-08-22 15:11] VITALS: BP 152/83; PULSE 84; TEMP 36.5; O2SAT 99
--- NOTE | 2016-08-22 16:17 | Progress Note ---
Medicine Progress Note Date & Time of Visit: Aug 22, 2016 at 16:12. Subjective Patient seen and examined. Family present at bedside this afternoon. Patient feels that the alternating regimen of Nucynta and Dilaudid is working well for him. Still with emesis, mainly after eating. Objective Last 8 Hrs Date Time Temp Pulse Resp B/P Pulse Ox O2 Delivery O2 Flow Rate FiO2 08/22/16 15:11 36.5 84 18 152/83 99 Room Air 08/22/16 11:35 36.6 80 16 145/84 96 Room Air 08/22/16 08:40 Room Air Physical Exam: General-awake; alert; NAD Eyes-EOMI; no scleral icterus Neck-no stridor; trachea midline Lungs-CTA bilaterally; no wheezes/crackles Heart-RRR; no m/r/g Abdomen-soft; NTND; nBS Extremities-no c/c/e; no deformity Neuro-no focal deficits Laboratory Results: Last 24 Hours Test 08/21/16 16:32 08/21/16 19:46 08/22/16 05:09 08/22/16 07:28 Bedside Glucose 228 mg/dl 264 mg/dl 264 mg/dl White Blood Count 5.26 K/uL Red Blood Count 3.07 M/uL Hemoglobin 8.7 g/dL Hematocrit 26.0 % Mean Corpuscular Volume 84.7 fL Mean Corpuscular Hemoglobin 28.3 pg Mean Corpuscular Hemoglobin Concent 33.5 g/dl RDW Standard Deviation 49.9 fL RDW Coefficient of Variation 16.3 % Platelet Count 196 K/uL Mean Platelet Volume 9.0 fL Sodium Level 137 mmol/L Potassium Level 4.1 mmol/L Chloride Level 99 mmol/L Carbon Dioxide Level 31 mmol/L Anion Gap 7.0 mmol/L Blood Urea Nitrogen 15 mg/dl Creatinine 1.40 mg/dl Est Creatinine Clear Calc Drug Dose 68.0 ml/min Estimated GFR () 67.4 Estimated GFR (Non- 58.2 BUN/Creatinine Ratio 11.0 Random Glucose 257 mg/dl Calcium Level 8.5 mg/dl Magnesium Level 1.6 mg/dl Test 08/22/16 11:21 Bedside Glucose 169 mg/dl Assessment & Plan 50 year old male with history of St 3 Lung CA on chemo, DM, Gastroparesis, Chronic Pain from Neuropathy, Anemia who presented with persistent nausea/ vomiting. INTRACTABLE NAUSEA AND VOMITING Possibly secondary to gastroparesis (s/p gastric stimulator) vs chemotherapy CT a/p without contrast- suboptimal exam, no obstruction, + mod L pleural effusion with L basilar atelectasis, + fluid overload including body wall edema and trace free fluid in the pelvis, no evidence acute appendicitis KUB showed fecal retention; had bowel movement after that GI consulted Emend dose given on admission and again 08/21 Continue Zofran, Promethazine and Reglan PRN Continue Senokot S daily, Protonix 40 mg BID, Miralax PRN, Milk of Mag PRN CHRONIC PAIN Due to diabetic polyneuropathy Pain management consulted Continue Nucynta Increased PO Dilaudid Continue Fentanyl patch, Gabapentin Discontinued IV Dilaudid ACUTE RENAL FAILURE (CKD 3) Resolved with IVF's Creatinine during previous admission was as high as 2.6 Baseline creatinine appears to be ~1.3-1.6 HYPOKALEMIA/ HYPOMAGNESEMIA Resolved Continue magnesium supplementation HYPERTENSION Continued on amlodipine (dose increased from 5 to 10 mg) and metoprolol ANEMIA OF CHRONIC DISEASE Baseline Hgb ~8-9 STAGE III NON SMALL CELL LUNG CANCER S/p lobectomy 05/25/16 at [place] Currently on chemo last treatment 07/27/[address] Amanda INSULIN DEPENDENT DM TYPE 2 Recent A1c = 10.4 on 08/06/16 Lantus and Insulin sliding scale coverage Pharmacy consulted for glycemic control DVT PROPHYLAXIS Lovenox CODE STATUS Full code Anticipate discharge home with home health. Consultants: Gastroenterology Pain Management Procedures: CT head Normal noncontrast head CT for age. CT a/p 1. Significantly suboptimal examination without oral and IV contrast. 2. There is no bowel obstruction. 3. There is a moderate left pleural effusion with left basilar atelectasis. 4. There is evidence of fluid overload including body wall edema and trace free fluid in the pelvis. 5. The appendix appears short and thick, measuring 11 mm in diameter. There is no convincing evidence of acute appendicitis. LE Venous Doppler No DVT within the right or left lower extremity. Current Inpatient Medications: Current Inpatient Medications Medications (Trade) Dose Ordered Sig/Cal Route Start Time Stop Time Status Last Admin Dose Admin Acetaminophen (Tylenol Tab) 650 mg Q4H PRN PO 08/15/16 02:45 09/14/16 02:44 Al Hydrox/Mg Hydrox/Simethicone (Maalox Max Susp) 15 ml Q4H PRN PO 08/15/16 02:45 09/14/16 02:44 Magnesium Hydroxide (Milk Of Magnesia Susp) 30 ml Q6H PRN PO 08/15/16 02:45 09/14/16 02:44 Polyethylene (Miralax Powder Packet) 17 gm DAILY PRN PO 08/15/16 03:30 09/14/16 03:29 Zolpidem Tartrate (Ambien Tab) 5 mg HSZ PRN PO 08/15/16 02:45 09/14/16 02:44 Ondansetron HCl (Zofran Inj) 4 mg Q6H PRN IV 08/15/16 02:45 09/14/16 02:44 08/21/16 08:26 4 MG Glucose (Glucose 40% Gel) 15-30 GRAMS 15 GRAMS... UD PRN PO 08/15/16 02:45 09/14/16 02:44 Glucose (Glucose Chew Tab) 4-8 Tablets 4 Tabl... UD PRN PO 08/15/16 02:45 09/14/16 02:44 Dextrose (Dextrose 50% 50ML Syringe) 25-50ML OF 50% DW IV FOR... UD PRN IV 08/15/16 02:45 09/14/16 02:44 Glucagon (Glucagon Inj) 1 mg UD PRN SQ 08/15/16 02:45 09/14/16 02:44 Amlodipine Besylate (Norvasc Tab) 10 mg QAM PO 08/15/16 08:00 09/14/16 08:59 08/22/16 08:44 10 MG Dexamethasone (Decadron Tab) 16 mg BID PO 08/15/16 08:00 09/14/16 08:59 Future Hold 08/15/16 08:13 16 MG Epinephrine (Epipen) 0.3 mg UD PRN IM 08/15/16 03:00 09/14/16 02:59 Gabapentin (Neurontin Tab) 600 mg TID PO 08/15/16 08:00 09/14/16 08:59 08/22/16 13:35 600 MG Levetiracetam (Keppra Tab) 750 mg BID PO 08/15/16 08:00 5/12/17 08:59 08/22/16 08:46 750 MG Magnesium Chloride (Slow-Mag Tab) 64 mg BID PO 08/15/16 08:00 09/14/16 08:59 08/22/16 08:33 64 MG Metoclopramide HCl (Reglan Tab) 10 mg ACHS PRN PO 08/15/16 03:00 09/14/16 02:59 Metoprolol Tartrate (Lopressor Tab) 25 mg BID PO 08/15/16 08:00 09/14/16 08:59 08/22/16 08:45 25 MG Multivitamins 1 tab 1 tab QAM PO 08/15/16 08:00 09/14/16 07:59 08/22/16 08:45 1 TAB Ondansetron HCl/ Dextrose (Zofran Inj/D5 50ml) 53 ml @ 200 mls/hr Q6H PRN IV 08/15/16 03:15 09/14/16 03:14 08/16/16 10:55 200 MLS/HR Miscellaneous (Iv Fluids Completed) 1 ea PRN PRN N/A 08/15/16 03:15 08/15/17 03:14 Miscellaneous Information (Check Fentanyl Patch Placement) 1 ea QS N/A 08/15/16 08:00 09/14/16 07:59 08/22/16 15:34 1 EA Fentanyl (Duragesic Patch) 100 mcg Q2D@0800 TD 08/16/16 08:00 08/30/16 07:59 08/22/16 08:34 100 MCG Miscellaneous (Fentanyl Patch Remove & Waste) 1 ea Q2D@0759 N/A 08/16/16 07:59 09/15/16 07:58 08/22/16 08:34 1 EA Clonidine HCl (Catapres Tab) 0.1 mg BID PRN PO 08/15/16 13:00 09/14/16 12:59 08/19/16 08:03 0.1 MG Miscellaneous Information (Consult Glycemic Management Pharmacy) 1 ea UD PRN N/A 08/15/16 18:33 09/14/16 18:32 Senna/Docusate Sodium (Senokot S Tab) 1 tab QAM PO 08/16/16 08:00 09/15/16 07:59 08/20/16 07:49 1 TAB Pantoprazole Sodium (Protonix Tab) 40 mg BID PO 08/16/16 20:00 09/15/16 19:59 08/22/16 08:45 40 MG Insulin Aspart (novoLOG ASPART) SLIDING SCALE ACHS SC 08/16/16 16:30 09/15/16 16:29 08/22/16 13:34 9 UNITS Enoxaparin Sodium (Lovenox Inj) 40 mg Q24H SQ 08/17/16 18:00 09/16/16 17:59 08/21/16 18:09 40 MG Tapentadol (Nucynta Tab) 150 mg Q6 PRN PO 08/21/16 12:00 09/04/16 11:59 08/22/16 15:36 150 MG Ondansetron HCl (Zofran Tab) 8 mg Q8 PRN PO 08/21/16 16:30 09/20/16 16:29 08/22/16 12:26 8 MG Promethazine HCl (Phenergan Tab) 25 mg Q4H PRN PO 08/21/16 16:30 09/20/16 16:29 08/22/16 08:32 25 MG Hydromorphone HCl (Dilaudid Tab) 6 mg Q6 PRN PO 08/22/16 12:00 09/05/16 11:59 08/22/16 12:26 6 MG Insulin Glargine (Lantus Solostar Pen) 25 unit QPM SC 08/22/16 16:45 09/21/16 16:44
[2016-08-22] MEDS ORDERED: INSULIN GLARGINE SOLOSTAR 100 UNITS/ML 3 ML PEN SC SCH (16:45)
[2016-08-22] MEDS: ENOXAPARIN 40 MG/0.4 ML SYR SQ SCH (18:29)
[2016-08-22 19:43] VITALS: BP 117/74; PULSE 87; TEMP 36.8; O2SAT 100
[2016-08-23 00:09] VITALS: BP 145/86; PULSE 78; TEMP 36.5; O2SAT 92
[2016-08-23] MEDS: HYDROmorphone HCL 2 MG TAB PO PRN ×2 (02:06→08:11)
[2016-08-23] MEDS: ONDANSETRON 4 MG TAB PO PRN (03:19)
[2016-08-23 04:08] VITALS: BP 158/87; PULSE 82; TEMP 36.5; O2SAT 92
[2016-08-23] MEDS: TAPENTADOL HCL 50 MG TAB PO PRN ×2 (05:02→11:10)
[2016-08-23 07:48] VITALS: BP 153/89; PULSE 85; TEMP 36.5; O2SAT 93
[2016-08-23] MEDS: DOCUSATE SODIUM/SENNA 50/8.6MG TAB PO SCH (08:00)
[2016-08-23] MEDS: PROMETHAZINE HCL 25 MG TAB PO PRN (08:11)
[2016-08-23] MEDS: MAGNESIUM CHLORIDE 64MG DELAYED REL TAB PO SCH (08:13)
[2016-08-23] MEDS: PANTOprazole SOD 40 MG TAB PO SCH (08:13)
[2016-08-23] MEDS: METOPROLOL TARTRATE 25 MG TAB PO SCH (08:13)
[2016-08-23] MEDS: AMLODIPINE BESYLATE 5 MG TAB PO SCH (08:13)
[2016-08-23] MEDS: GABAPENTIN 600 MG TAB PO SCH (08:13)
[2016-08-23] MEDS: LEVETIRACETAM 250 MG TAB PO SCH (08:14)
[2016-08-23] MEDS: MULTIVITAMIN TAB PO SCH (08:14)
[2016-08-23] MEDS: CHECK FENTANYL PATCH PLACEMENT SCH ×2 (08:14)
[2016-08-23] MEDS: INSULIN ASPART 100 UNITS/ML 3 ML PEN SC SCH ×2 (09:34→12:11)
[2016-08-23 10:00] VITALS: Ht 172.7 cm; Wt 87.7 kg
[2016-08-23 10:30] VITALS: BP 153/89; PULSE 85; TEMP 36.5; O2SAT 93
--- NOTE | 2016-08-23 10:56 | Discharge Instructions ---
Discharge Instructions Date of Service Aug 23, 2016. Admission Reason for Admission: Dehydration, Hypomagnesemia, Intractable Vomiting Discharge Discharge Diagnosis / Problem: Pain, Vomiting. Discharge Goals Goal(s): Decrease discomfort Activity Recommendations Activity Limitations: resume your previous activity . Instructions / Follow-Up Instructions / Follow-Up Please follow up with Family Medicine Dr. Burgess on August 27 at 10:45am. Please follow up with Pain management Dr. Mota on August 28 at 9:00am. Dr. Mota will take care of refilling your narcotic pain medications. Please follow up with Oncology Dr. Amanda on August 29 at 11:45am. You filled a prescription for Nucynta 50mg #40 tablets on August 14. Pharmacy will hold the prescription for Nucynta 150mg tablets until you run out. You filled a prescription for the Fentanyl patches on August 14. You filled a prescription for Dilaudid 8mg #30 tablets on August 16. You can take this prescription since it has already been filled. Current Hospital Diet Patient's current hospital diet: Diabetes Type 2 Diet Discharge Diet Recommended Diet: Diabetes Type 2 Diet Pending Studies Studies pending at discharge: no Laboratory Results Hemoglobin A1c Test 08/06/16 06:48 Range/Units Estimated Average Glucose 252 mg/dl Hemoglobin A1c 10.4 H 4.5-5.6 % Medical Emergencies . Who to Call and When: Medical Emergencies: If at any time you feel your situation is an emergency, please call 911 immediately. . Non-Emergent Contact Non-Emergency issues call your: Primary Care Provider . . "Provider Documentation" section prepared by Claudia Myers. . VTE Core Measure Inpt VTE Proph given/why not?: Unfractionated heparin SQ [place] Drug Monitoring Program Search Results: patient reviewed within database
[2016-08-23] MEDS ORDERED: AMLO-114 PO (10:57)
[2016-08-23] MEDS ORDERED: TAPE100T2 PO (10:57)
[2016-08-23] MEDS ORDERED: HYDR2TAB3 PO (10:57)
--- NOTE | 2016-08-23 16:34 | Discharge Summary ---
Discharge Summary Date of Service Aug 23, 2016. Discharge Summary Admission Date: Aug 15, 2016 at 02:40 Discharge Date: Aug 23, 2016 Discharge Disposition: Home with services Principal Diagnosis: Pain, Vomiting Procedures: CT head Normal noncontrast head CT for age. CT a/p 1. Significantly suboptimal examination without oral and IV contrast. 2. There is no bowel obstruction. 3. There is a moderate left pleural effusion with left basilar atelectasis. 4. There is evidence of fluid overload including body wall edema and trace free fluid in the pelvis. 5. The appendix appears short and thick, measuring 11 mm in diameter. There is no convincing evidence of acute appendicitis. LE Venous Doppler No DVT within the right or left lower extremity. Consultations: Gastroenterology Pain Management Medication Reconciliation New Medications: Amlodipine (Norvasc) 10 Mg Tab 10 MG PO DAILY for 30 Days, #30 TAB Tapentadol Hcl (Nucynta) 100 Mg Tab 150 MG PO Q6 PRN for Pain for 30 Days, #120 TAB Hydromorphone HCl (Hydromorphone HCl) 2 Mg Tab 6 MG PO Q6 PRN for Pain for 30 Days, #360 TAB Continued Medications: Acetaminophen (Tylenol) 500 Mg Tab 2 TAB PO TID PRN for Pain for 2 Days, 3 Refills Aspirin (Aspirin Ec) 81 Mg Tab 81 MG PO QAM Dexamethasone (Decadron) 4 Mg Tab 4 TAB PO BID for 2 Days, #8 TAB Only on day of and day after chemo Epinephrine (Epipen) 0.3 Mg/0.3 Ml Inj 0.3 MG IM UD PRN for ALLERGIC REACTION Fentanyl (Duragesic) 50 Mcg Tdsy 100 MCG TD Q48hr for 30 Days, #10 PATCH LAST PLACED ON 08/04/16 at 1300 Gabapentin (Neurontin) 300 Mg Cap 600 MG PO TID, CAP Insulin Glargine (Lantus) 100 Unit/Ml Inj 25 SC QPM, VIAL Insulin Human Lispro (Humalog) 1 Ea Inj 1 unit for every 10 greater than 120 Levetiracetam (Keppra) 750 Mg Tab 750 MG PO BID, #60 TAB Magnesium Chloride (Slow-Mag Tab) 64 Mg Tabcr 64 MG PO BID for 30 Days, #60 Metoclopramide HCl (Metoclopramide HCl) 10 Mg Tab 10 MG PO ACHS PRN for nausea for 10 Days, #40 TAB Metoprolol Tartrate (Lopressor) 25 Mg Tab 25 MG PO BID for 30 Days, #60 TAB Multiple Vitamin (Multivitamins) 1 Cap Cap 1 TAB PO QAM Ondansetron (Ondansetron HCl) 4 Mg Tab 8 MG PO Q8 PRN for Nausea Promethazine Hcl (Phenergan) 12.5 Mg Tab 2 TABS PO Q4H PRN for Nausea or Vomiting Discontinued Medications: Amlodipine Besylate (Amlodipine Besylate) 5 Mg Tab 5 MG PO QAM for 30 Days, #30 TAB Hydromorphone Hcl (Dilaudid) 8 Mg Tab 1 TAB PO TID PRN for Pain for 10 Days, #30 TAB Tapentadol HCl (Nucynta) 50 Mg Tab 75 MG PO Q4H PRN for Pain for 10 Days, #40 TAB Admission Information HPI (per Admitting provider): This is 50 y/o male with past medical hx of Non small cell Lung Ca s/p lung resection on chemo tx , Insulin dependent DM2, Diabetic neuropathy , gastroparesis , s/p gastric stimulator placement , HTN presented to ED with complain of intractable Nausea /vomiting, worsening of generalized body pain Pt was recently admitted to [facility] from 08/05/16 -08/13/16 with similar symptom - of intractable N/V thought secondary thought to be secondary to chemo, gastroparesis, chronic narcotic use for neuropathy was evaluated by GI , oncology and pain management team Pt states after being discharged home -his GI symptom recurred with worsening of nausea /vomiting /abdominal pain , could not keep down food or drink could not swallow PO antiemetics felt very weak and lightheaded ; generalized body ache came to ED for further evaluation Physical Exam (per Admitting): General Appearance: + moderate distress, + cachetic Eyes: sclerae normal Respiratory/Chest: lungs clear, no respiratory distress Cardiovascular: regular rate, rhythm Abdomen/GI: soft, + tenderness (in epigastric and lower abdomen diffusely ) Extremities/Musculoskelatal: no pedal edema Neurologic/Psych: alert, oriented x 3, + depressed affect Hospital Course 50 year old male with history of St 3 Lung CA on chemo, DM, Gastroparesis, Chronic Pain from Neuropathy, Anemia who presented with persistent nausea/ vomiting. This was felt to be likely 2/2 gastrop[address] vs chemotherapy[address] a/p did not show any acute causative pathology. GI was consulted. Patient was continued on antiemetics and bowel regimen. Pain management was consulted for chronic pain. Fentanyl patch was continued. Nucynta was increased. Dilaudid was decreased. Patient will follow up with Pain management for reinsertion of pain pump. Amlodipine was increased to improve blood pressure control. Patient was continued on the remainder of his medications with the aforementioned exceptions. Patient deemed stable for discharge with Family Medicine, Pain management and Oncology follow up. PE on discharge: General- awake; alert; NAD Eyes- EOMI; no scleral icterus Neck- no stridor; trachea midline Lungs- CTA bilaterally; no wheezes/crackles Heart- RRR; no m/r/g Abdomen- soft; ND; nBS Back- no gross abnormalities Extremities- no c/c/e; no deformity Neuro- no focal deficits Skin- no appreciable rash . Total time spent on discharge = This includes examination of the patient, discharge planning, medication reconciliation, and communication with other providers. Discharge Instructions Discharge Instructions Date of Service Aug 23, 2016. Admission Reason for Admission: Dehydration, Hypomagnesemia, Intractable Vomiting Discharge Discharge Diagnosis / Problem: Pain, Vomiting. Discharge Goals Goal(s): Decrease discomfort Activity Recommendations Activity Limitations: resume your previous activity . Instructions / Follow-Up Instructions / Follow-Up Please follow up with Family Medicine Dr. Burgess on August 27 at 10:45am. Please follow up with Pain management Dr. Mota on August 28 at 9:00am. Dr. Mota will take care of refilling your narcotic pain medications. Please follow up with Oncology Dr. Amanda on August 29 at 11:45am. You filled a prescription for Nucynta 50mg #40 tablets on August 14. Pharmacy will hold the prescription for Nucynta 150mg tablets until you run out. You filled a prescription for the Fentanyl patches on August 14. You filled a prescription for Dilaudid 8mg #30 tablets on August 16. You can take this prescription since it has already been filled. Current Hospital Diet Patient's current hospital diet: Diabetes Type 2 Diet Discharge Diet Recommended Diet: Diabetes Type 2 Diet Pending Studies Studies pending at discharge: no Laboratory Results Hemoglobin A1c Test 08/06/16 06:48 Range/Units Estimated Average Glucose 252 mg/dl Hemoglobin A1c 10.4 H 4.5-5.6 % Medical Emergencies . Who to Call and When: Medical Emergencies: If at any time you feel your situation is an emergency, please call 911 immediately. . Non-Emergent Contact Non-Emergency issues call your: Primary Care Provider . . "Provider Documentation" section prepared by Claudia Myers. . VTE Core Measure Inpt VTE Proph given/why not?: Unfractionated heparin SQ [place] Drug Monitoring Program Search Results: patient reviewed within database Additional Copies To Bran Burgess M.D.
[2016-08-25] MEDS ORDERED: ONDA4TAB54 PO (00:33)
[2016-08-25] MEDS ORDERED: MULTCAP42 PO (15:07)
[2016-08-25] MEDS ORDERED: EPP3/2 IM (15:07)
[2016-10-05] MEDS ORDERED: FENT100D10 TOP (09:21)
[2016-10-05] MEDS ORDERED: DRGTP50 TOP (09:21)
[2016-12-19] MEDS ORDERED: FOLI1TAB7 PO (15:00)
[2016-12-19] MEDS ORDERED: FENT75DI2 EX (15:00)
[2016-12-19] MEDS ORDERED: LEVE750T PO (15:00)
[2017-01-14] MEDS ORDERED: AMLO-114 PO (09:25)
[2017-01-14] MEDS ORDERED: NRN/600 PO (09:25)
[2017-01-14] MEDS ORDERED: VNTHFA/IN INH (09:25)
[2017-03-19] MEDS ORDERED: PEGSOL13 (10:26)
[2017-03-19] MEDS ORDERED: PRLSR20 PO (10:26)
[2017-03-19] MEDS ORDERED: HYDR2TAB48 PO (10:26)
[2017-03-19] MEDS ORDERED: CEFA1INJ IV (10:26)
[2017-03-19] MEDS ORDERED: FERR1TAB13 PO (10:26)
[2017-03-19] MEDS ORDERED: DRGTP100 (10:27)
[2017-03-19] MEDS ORDERED: HYZ/50125 PO (10:27)
[2017-03-19] MEDS ORDERED: LISI-725 PO (10:27)
== END 2016-08-23 12:12 | disposition home health service (06) | DRG 391 ==
LOC: ENRESERVDT → ENRESERVTM → C.EDB 23:32 → C.4E 08-15 02:40 → EDBEDREQ 08-15 02:41
PROVIDERS: ADMIT Hospitalist; ATTEND Internal Medicine
DX: R11.2 Nausea with vomiting, unspecified (principal); D61.810 Antineoplastic chemotherapy induced pancytopenia; C34.90 Malignant neoplasm of unspecified part of unspecified bronchus or lung; N17.9 Acute kidney failure, unspecified; R64 Cachexia; F11.20 Opioid dependence, uncomplicated; E11.22 Type 2 diabetes mellitus with diabetic chronic kidney disease; E11.40 Type 2 diabetes mellitus with diabetic neuropathy, unspecified; E11.43 Type 2 diabetes mellitus with diabetic autonomic (poly)neuropathy; I12.9 Hypertensive chronic kidney disease with stage 1 through stage 4 chronic kidney disease, or unspecified chronic kidney disease; N18.3 Chronic kidney disease, stage 3 (moderate); K21.9 Gastro-esophageal reflux disease without esophagitis; F41.9 Anxiety disorder, unspecified; R62.7 Adult failure to thrive; Z68.29 Body mass index [BMI] 29.0-29.9, adult; G47.00 Insomnia, unspecified; Z79.82 Long term (current) use of aspirin; Z79.4 Long term (current) use of insulin; Z79.899 Other long term (current) drug therapy; Z91.030 Bee allergy status; Z88.0 Allergy status to penicillin; Z96.659 Presence of unspecified artificial knee joint; Z90.2 Acquired absence of lung [part of]; R60.9 Edema, unspecified; Z83.79 Family history of other diseases of the digestive system; E87.6 Hypokalemia; E83.42 Hypomagnesemia; D63.8 Anemia in other chronic diseases classified elsewhere; G89.4 Chronic pain syndrome

== ENCOUNTER 2016-08-25 15:48 | Inpatient (IN) | payer OTHER ==
[~2016-08-25] VITALS: Ht 172.7 cm; Wt 80.6 kg
[~2016-08-25 15:48] MED LIST changes: +AMLO-114 PO; +EPP3/2 IM; +HYDR2TAB3 PO; -HYDR8TAB29 PO; -KPP/750 PO; +MULTCAP42 PO; -NCY50 PO; -NRV5 PO; -ONDA4TAB4 PO; +ONDA4TAB54 PO; +TAPE100T2 PO
[2016-08-25] MEDS ORDERED: INSPMPHMLG SC (16:02)
[2016-08-25] MEDS ORDERED: ACET-1256 PO (16:02)
[2016-08-25] MEDS ORDERED: PROM12.56 PO (16:02)
[2016-08-25] MEDS ORDERED: INSDGI SC (16:02)
[2016-08-25] MEDS ORDERED: ASPI81TA28 PO (16:04)
[2016-08-25] MEDS ORDERED: SODIUM CHLORIDE 0.9% 1000ML 1,000 ML IV STA (16:06)
[2016-08-25] MEDS ORDERED: SODIUM CHLORIDE 0.9% 1000ML 1,000 ML IV ONE (16:06)
[2016-08-25] MEDS ORDERED: GABA-113 PO (16:08)
--- NOTE | 2016-08-25 16:15 | EMERGENCY ROOM VISIT NOTE ---
History Report prepared by Nedra: Sudhakar Goel Under the Supervision of: Dr. Jeff Fisher M.D. First contact with patient: 15:56 Chief Complaint: CONFUSION Stated Complaint: CONFUSION History of Present Illness The patient is a 50 year old male who presents to the Emergency Room with complaints of persistent confusion that started sometime earlier today. The patient was fine when his left for work this morning. He was not answering his phone so his daughter went to check on him. She found him in his bed appearing very disoriented. This morning the patient told his that he vomited once in the middle of the night, and he told his daughter today that he vomited more. The patient says yes when asked if he has experienced any recent falls, fevers, headaches, and abdominal pain. He states that he hurts "all over. " The patient denies shortness of breath. His was not aware of any fevers and is not aware of any recent trauma. He has a history of adenocarcinoma of the lungs. The patient has been having chemotherapy, with has last treatment over 4 weeks ago. He was supposed to be treated yesterday but was told that he was too sick. The patient had the upper lobe of his left lung removed at [facility]. He is diabetic and his BSG was 263 upon arrival. He has been admitted to the hospital multiple times recently and was just discharged last . He is on Fentanyl for chronic pain. Complete history is limited secondary to altered mental status. Source of History: patient, spouse/significant other History Limited By: AMS Onset: today Position: other (mentation) Quality: other (confused) Timing: other (persistent) Associated Symptoms: + abdominal pain, + fevers, + headache, + vomiting, No SOB Review of Systems ROS is limited secondary to altered mental status. Past Medical & Surgical Medical Problems: (1) Confusion (2) Diabetes mellitus, type II (3) Diabetic polyneuropathy (4) Gastroparesis (5) HTN (hypertension) (6) Lung cancer (7) Nausea and vomiting Surgical Problems: (1) H/O colonoscopy (2) H/O esophagogastroduodenoscopy (3) History of cholecystectomy (4) History of tonsillectomy and adenoidectomy (5) Hx of total knee arthroplasty (6) S/P lobectomy of lung Old medical records were reviewed. Nurse's notes were reviewed and I agree with. Family History No pertinent family history Social History Smoking Status: Current Every Day Smoker Drug Use: none Marital Status: Housing Status: lives with family Current/Historical Medications Scheduled Amlodipine (Norvasc), 10 MG PO DAILY Aspirin (Aspirin Ec), 81 MG PO QAM Fentanyl (Duragesic), 100 MCG TD CQ48HR Gabapentin (Neurontin), 600 MG PO TID Insulin Glargine (Lantus), 25 UNITS SC QPM Insulin Human Lispro (Humalog), 1 DOSE SC UD Magnesium Chloride (Slow-Mag Tab), 64 MG PO BID Metoprolol Tartrate (Lopressor) (Lopressor), 25 MG PO BID Multiple Vitamin (Multivitamins), 1 CAP PO QAM Scheduled PRN Acetaminophen (Tylenol), 1,000 MG PO TID PRN for Pain Dexamethasone (Decadron), 8 MG PO UD PRN for Chemo Day Of/Day After Epinephrine (Epipen), 0.3 MG IM UD PRN for ALLERGIC REACTION Hydromorphone Hcl (Dilaudid), 6 MG PO Q6H PRN for Pain Metoclopramide Hcl (Reglan), 10 MG PO ACHS PRN for Nausea Ondansetron (Ondansetron HCl), 8 MG PO Q8 PRN for Nausea Promethazine Hcl (Phenergan), 25 MG PO Q4H PRN for Nausea or Vomiting Tapentadol Hcl (Nucynta), 150 MG PO Q6H PRN for Pain Allergies Coded Allergies: BEE STING (Verified Allergy, Mild, SWELLING AT SITE, SOB, 08/15/16) Penicillins (Verified Allergy, Unknown, "SINCE ", 08/15/16) Physical Exam Vital Signs Date Time Temp Pulse Resp B/P Pulse Ox O2 Delivery O2 Flow Rate FiO2 08/25/16 17:45 97 95 08/25/16 17:30 95 18 183/143 08/25/16 17:16 96 08/25/16 17:15 94 192/103 98 08/25/16 17:12 182/129 08/25/16 17:00 95 10 188/114 96 08/25/16 16:59 95 20 195/125 99 Room Air 08/25/16 16:15 99 Room Air 08/25/16 15:50 36.7 105 20 197/107 98 Room Air Physical Exam General: Chronically ill-appearing middle aged male who answers questions vaguely. Alert to person but confused about place, sleepy but arousable. HEENT: Normal cephalic atraumatic. Pupils are equal round and reactive to light. Sclerae anicteric. Extraocular movements are intact. Oropharynx is pink with moist mucous membranes. No swelling of the mouth lips or tongue. Neck: Supple with a midline trachea. No meningeal signs or stiffness, no JVD or bruits. No Stridor. Chest: Clear to auscultation bilaterally. No wheezes or rhonchi. No increased work of breathing. Heart: regular rate and rhythm. Abdomen: Soft nontender, nondistended without rebound guarding or rigidity. Extremities: No cyanosis clubbing or edema. No calf tenderness or assymetry Spine/Back. Non tender to palpation. No CVA tenderness Skin: Good turgor without rashes. Neurologic exam: Cranial nerves two through 12 are intact. Motor and sensation are intact and symmetrical throughout. Medical Decision & Procedures ER Provider Diagnostic Interpretation: Radiology results as stated below per my review and radiologist interpretation: CHEST ONE VIEW PORTABLE CLINICAL HISTORY: Atypical chest pain COMPARISON STUDY: 08/05/2016, CT scan of the abdomen pelvis dated 08/15/2016 FINDINGS: The study is mildly limited from a technical standpoint. The heart is normal in size. There is ill-definition of the medial aspect of the left hemidiaphragm. This raises the possibility of the left pleural effusion or left basilar consolidation.. There is no overt failure.[ IMPRESSION: Technically limited study. Suspected left pleural effusion and/or left lower lobe consolidation. Electronically signed by: Bruce Salamanca M.D. 08/25/2016 5:02 PM Dictated Date/Time: 08/25/2016 5:[address] HEAD WITHOUT CONTRAST (CT) CLINICAL HISTORY: Altered level of consciousness COMPARISON STUDY: 08/05/2016 TECHNIQUE: Axial CT of the brain is performed from the vertex to the skull base. IV contrast was not administered for this examination. CT DOSE: 2457.06 mGy.cm FINDINGS: No intra or extra-axial mass lesions are visualized. There is no CT evidence of acute cortical infarction. There is no evidence of midline shift. There is no acute hemorrhage. No calvarial fractures are visualized. The study is compromised due to motion artifact. Repeat images were acquired. There is no evidence of pathologic ventricular dilatation. There is no evidence of acute sinusitis IMPRESSION: No acute intracranial findings Electronically signed by: Bruce Salamanca M.D. 08/25/2016 4:39 PM Dictated Date/Time: 08/25/2016 4:38 PM Laboratory Results 08/25/16 16:15 Red Blood Count 3.54, Mean Corpuscular Volume 82.2, Mean Corpuscular Hemoglobin 29.1, Mean Corpuscular Hemoglobin Concent 35.4, Mean Platelet Volume 8.9, Neutrophils (%) (Auto) 70.3, Lymphocytes (%) (Auto) 14.5, Monocytes (%) (Auto) 12.0, Eosinophils (%) (Auto) 2.6, Basophils (%) (Auto) 0.4, Neutrophils # (Auto ) 3.82, Lymphocytes # (Auto) 0.79, Monocytes # (Auto) 0.65, Eosinophils # (Auto ) 0.14, Basophils # (Auto) 0.02 08/25/16 16:15 Test 08/25/16 16:15 08/25/16 16:21 08/25/16 16:25 White Blood Count 5.43 K/uL (4.8-10.8) Red Blood Count 3.54 M/uL (4.7-6.1) Hemoglobin 10.3 g/dL (14.0-18.0) Hematocrit 29.1 % (42-52) Mean Corpuscular Volume 82.2 fL (80-100) Mean Corpuscular Hemoglobin 29.1 pg (25-34) Mean Corpuscular Hemoglobin Concent 35.4 g/dl (32-36) Platelet Count 251 K/uL (130-400) Mean Platelet Volume 8.9 fL (7.4-10.4) Neutrophils (%) (Auto) 70.3 % Lymphocytes (%) (Auto) 14.5 % Monocytes (%) (Auto) 12.0 % Eosinophils (%) (Auto) 2.6 % Basophils (%) (Auto) 0.4 % Neutrophils # (Auto) 3.82 K/uL (1.4-6.5) Lymphocytes # (Auto) 0.79 K/uL (1.2-3.4) Monocytes # (Auto) 0.65 K/uL (0.11-0.59) Eosinophils # (Auto) 0.14 K/uL (0-0.5) Basophils # (Auto) 0.02 K/uL (0-0.2) RDW Standard Deviation 47.5 fL (36.4-46.3) RDW Coefficient of Variation 16.1 % (11.5-14.5) Immature Granulocyte % (Auto) 0.2 % Immature Granulocyte # (Auto) 0.01 K/uL (0.00-0.02) Prothrombin Time 11.4 SECONDS (9.0-12.0) Prothromb Time International Ratio 1.1 (0.9-1.1) Activated Partial Thromboplast Time 26.5 SECONDS (21.0-31.0) Partial Thromboplastin Ratio 1.0 Estimated GFR () 73.7 Estimated GFR (Non- 63.6 BUN/Creatinine Ratio 8.9 (10-20) Calcium Level 9.0 mg/dl (8.5-10.1) Magnesium Level 1.1 mg/dl (1.8-2.4) Total Bilirubin 0.6 mg/dl (0.2-1) Direct Bilirubin 0.1 mg/dl (0-0.2) Aspartate Amino Transf (AST/SGOT) 16 U/L (15-37) Alanine Aminotransferase (ALT/SGPT) 14 U/L (12-78) Alkaline Phosphatase 88 U/L (45-117) Total Creatine Kinase 128 U/L (39-308) Creatine Kinase MB 2.8 ng/ml (0.5-3.6) Creatine Kinase MB Ratio 2.2 (0-3.0) Troponin I < 0.015 ng/ml (0-0.045) Total Protein 8.0 gm/dl (6.4-8.2) Albumin 3.5 gm/dl (3.4-5.0) Lipase 40 U/L (73-393) Bedside Hemoglobin 9.9 g/dl (14.0-18.0) Bedside Hematocrit 29 % (42-52) Bedside Sodium 137 mEq/L (135-144) Bedside Potassium 3.7 mEq/L (3.3-5.0) Bedside Chloride 91 mEq/L (101-112) Bedside Total CO2 30 mEq/l (24-31) Anion Gap 21.0 mmol/L (16-25) Bedside Blood Urea Nitrogen 11 mg/dl (7-18) Bedside Creatinine 1.1 mg/dl (0.6-1.3) Bedside Glucose (other) 271 mg/dl (70-99) Bedside Ionized Calcium (Shanda) 1.05 mmol/l (1.12-1.32) Bedside Lactic Acid Venous 1.22 mmol/L (0.90-1.70) Laboratory studies as stated above per my review. Medications Administered Medications (Trade) Dose Ordered Sig/Cal Route Start Time Stop Time Status Last Admin Dose Admin Sodium Chloride 1,000 ml @ 999 mls/hr Q1H1M STAT IV 08/25/16 16:06 08/25/16 17:06 DC 08/25/16 16:06 999 MLS/HR Sodium Chloride (Nss 1000ml) 1,000 ml @ 150 mls/hr Q6H40M ONCE IV 08/25/16 16:06 08/25/16 20:43 DC 08/25/16 17:06 150 MLS/HR Ondansetron HCl (Zofran Inj) 4 mg NOW STAT IV 08/25/16 16:39 08/25/16 16:40 DC 08/25/16 16:39 4 MG ECG Indication: altered mental status Rate (beats per minute): 103 Rhythm: sinus tachycardia Findings: no acute ischemic change, other (poor baseline, poor R-wave progression.) Change: Sinus tachycardia now present compared to EKG dated 05 August 2016. ED Course 1556: Past medical records reviewed. The patient was evaluated in room B7, and a complete history and physical examination were performed. 1606: NSS 1000 ml @ 150 mls/hr, NSS 1000 ml @ 999 mls/hr. 1639: Zofran 4 mg IV. 1643: The patient appears more comfortable and awake. 1706: Discussed the case with Dr. Lares, [facility] Hospitalist. The patient will be evaluated. 1710: Updated the patient and his . 1725: The patient appears more comfortable. Dr. Mahmood is at bedside. Found out that the patient did not take his medications today. Medical Decision Differential diagnosis includes infection, complication related to cancer, electrolyte or metabolic abnormality, medication side effect, cardiac disease, diabetic emergency. This patient comes in as described above. He was placed in room B7. I saw him immediately as he is a priority patient. He is afebrile and is hypertensive. He does have altered mental status he seems confused he is on multiple medications multiple medical problems including cancer and diabetes. We did a blood sugars in the 200s and therefore unlikely causing his symptoms. IV access established and he was hydrated with an IV normal saline bolus and hourly rate of IV NS. Head CT, EKG, multiple blood testing was obtained. CAT scan of his head is unremarkable. He is afebrile here. His i-STAT labs do not show any significant abnormalities to explain his symptoms. EKG does not suggest acute coronary syndrome or arrhythmia. He was given Zofran 4 mg IV for dry heaves. I reviewed his old records he doesn't history of gastroparesis that could be playing some role here. He also multiple pain medications and this could be playing some role as well or possibly withdrawal. he was reassessed frequently. He has no acute electrolyte or metabolic abnormalities. He has no elevation in his white count or fever or lactic acid to suggest sepsis. He is on multiple medications that could be related to withdrawal or medication side effect. His blood pressure is also elevated I think this is more likely an effect rather cause. Looking through his chart, he has had some nausea. He's had dry heaves here as well today. I do think he needs to be admitted for further treatment and evaluation. I did consult the [facility] hospitalist. He was seen in the ER by Dr. Mahmood who admitted him recently and does know him. Consults Time Called: 1700 Consulting Physician: aCrol Hensley. Returned Call: [phone]: [facility] The patient will be evaluated. Impression Primary Impression: Altered mental status Additional Impression: Vomiting Scribe Attestation The scribe's documentation has been prepared under my direction and personally reviewed by me in its entirety. I confirm that the note above accurately reflects all work, treatment, procedures, and medical decision making performed by me. Departure Information Dispostion Being Evaluated By Hospitalist Referrals Bran Burgess M.D. (PCP) Patient Instructions My [facility] Problem Qualifiers
[2016-08-25] MEDS ORDERED: ONDANSETRON INJ 2 MG/ML 2 ML VIAL IV STA (16:39)
--- NOTE | 2016-08-25 16:41 | DIAGNOSTIC IMAGING REPORT ---
CT HEAD WITHOUT CONTRAST (CT) CLINICAL HISTORY: Altered level of consciousness COMPARISON STUDY: 08/05/2016 TECHNIQUE: Axial CT of the brain is performed from the vertex to the skull base. IV contrast was not administered for this examination. CT DOSE: 2457.06 mGy.cm FINDINGS: No intra or extra-axial mass lesions are visualized. There is no CT evidence of acute cortical infarction. There is no evidence of midline shift. There is no acute hemorrhage. No calvarial fractures are visualized. The study is compromised due to motion artifact. Repeat images were acquired. There is no evidence of pathologic ventricular dilatation. There is no evidence of acute sinusitis IMPRESSION: No acute intracranial findings Electronically signed by: Bruce Salamanca M.D. 08/25/2016 4:39 PM Dictated Date/Time: 08/25/2016 4:38 PM
[2016-08-25 16:44] LABS: BASO % 0.4 %; BASO ABS # 0.02 K/uL (0-0.2); COMPLETE YES; EOS % 2.6 %; HEMATOCRIT 29.1 % (42-52); IG% 0.2 %; LYMPH % 14.5 %; LYMPH ABS # 0.79 K/uL (1.2-3.4); MEAN CELL VOLUME 82.2 fL (80-100); MEAN CORPUSCULAR HEMOGLOBIN 29.1 pg (25-34); MEAN CORPUSCULAR HGB CONC 35.4 g/dl (32-36); MEAN PLATELET VOLUME 8.9 fL (7.4-10.4); NEUT % 70.3 %; PLATELET COUNT 251 K/uL (130-400); RED BLOOD COUNT 3.54 M/uL (4.7-6.1); WHITE BLOOD COUNT 5.43 K/uL (4.8-10.8)
[2016-08-25 16:46] LABS: INR 1.1 (0.9-1.1); PROTHROMBIN TIME (PATIENT) 11.4 SECONDS (9.0-12.0)
[2016-08-25 16:55] LABS: ALT/SGPT 14 U/L (12-78); AST/SGOT 16 U/L (15-37); BLOOD UREA NITROGEN 12 mg/dl (7-18); BUN/CREATININE RATIO 8.9 (10-20); CARBON DIOXIDE 34 mmol/L (21-32); CHLORIDE 95 mmol/L (98-107); GLUCOSE 271 mg/dl (70-99); MAGNESIUM 1.1 mg/dl (1.8-2.4); POTASSIUM 3.8 mmol/L (3.5-5.1); SODIUM 138 mmol/L (136-145)
[2016-08-25 16:58] LABS: ALKALINE PHOSPHATASE 88 U/L (45-117); CKMB/CK RATIO 2.2 (0-3.0)
--- NOTE | 2016-08-25 17:04 | DIAGNOSTIC IMAGING REPORT ---
CHEST ONE VIEW PORTABLE CLINICAL HISTORY: Atypical chest pain COMPARISON STUDY: 08/05/2016, CT scan of the abdomen pelvis dated 08/15/2016 FINDINGS: The study is mildly limited from a technical standpoint. The heart is normal in size. There is ill-definition of the medial aspect of the left hemidiaphragm. This raises the possibility of the left pleural effusion or left basilar consolidation.. There is no overt failure.[ IMPRESSION: Technically limited study. Suspected left pleural effusion and/or left lower lobe consolidation. Electronically signed by: Bruce Salamanca M.D. 08/25/2016 5:02 PM Dictated Date/Time: 08/25/2016 5:00 PM
[2016-08-25] MEDS ORDERED: METO-157 PO (17:31)
[2016-08-25] MEDS ORDERED: AMLO-114 PO (17:31)
[2016-08-25] MEDS ORDERED: SLWMEC PO (17:31)
[2016-08-25] MEDS ORDERED: FNTTP50 TD (17:31)
[2016-08-25] MEDS ORDERED: TAPE100T2 PO (17:31)
[2016-08-25] MEDS ORDERED: HYDR2TAB48 PO (17:31)
[2016-08-25] MEDS ORDERED: METO25TA56 PO (17:31)
[2016-08-25] MEDS ORDERED: DXM/4 PO (17:37)
[2016-08-25] MEDS ORDERED: AMLODIPINE BESYLATE 5 MG TAB PO STA (17:51)
[2016-08-25] MEDS ORDERED: METOPROLOL TARTRATE 50 MG TAB PO STA (17:51)
[2016-08-25] MEDS ORDERED: GLUCOSE 40% GEL 15 GM TUBE PO PRN (18:00)
[2016-08-25] MEDS ORDERED: GLUCOSE 10 TABS/TUBE PO PRN (18:00)
[2016-08-25] MEDS ORDERED: ACETAMINOPHEN 500 MG TAB PO PRN (18:00)
[2016-08-25] MEDS ORDERED: POLYETHYLENE (MIRALAX) 17 GM PACK PO PRN (18:00)
[2016-08-25] MEDS ORDERED: ACETAMINOPHEN 325 MG TAB PO PRN (18:00)
[2016-08-25] MEDS ORDERED: DEXTROSE 50% 50 ML SYR IV PRN (18:00)
[2016-08-25] MEDS ORDERED: GLUCAGON FOR INJ 1 MG VIAL SQ PRN (18:00)
[2016-08-25] MEDS ORDERED: HydrALAZINE HCL 20 MG/ML VIAL IV. PRN (18:00)
[2016-08-25] MEDS ORDERED: LORAZEPAM 2 MG/ML 1 ML VIAL IV PRN (18:15)
[2016-08-25] MEDS ORDERED: NALOXONE HCL 0.4 MG/1 ML VIAL/CARP IV STA (18:18)
[2016-08-25] MEDS ORDERED: HydrALAZINE HCL 20 MG/ML VIAL IM STA (18:19)
[2016-08-25] MEDS ORDERED: HydrALAZINE HCL 20 MG/ML VIAL ONE (18:29)
[2016-08-25] MEDS ORDERED: NALOXONE HCL 0.4 MG/1 ML VIAL/CARP ONE (18:30)
[2016-08-25] MEDS ORDERED: LORAZEPAM 2 MG/ML 1 ML VIAL IV STA (18:38)
[2016-08-25] MEDS ORDERED: LORAZEPAM 2 MG/ML 1 ML VIAL ONE (18:41)
--- NOTE | 2016-08-25 18:54 | History and Physical ---
History & Physical Date & Time of Service: Aug 25, 2016 at 18:00 Chief Complaint: Confusion Primary Care Physician: Bran Burgess M.D. History of Present Illness Source: patient, spouse, hospital records Patient is a 50 y/o male with a h/o stage 3 lung cancer, HTN, diabetes complicated by gastroparesis who presents for evaluation of confusion. History is obtained from patient's as patient is unable to provide. states that patient appeared to be in his usual state of health when she left for work this morning around 5:30am. She received a call this afternoon from her daughter who stated that patient wasn't making any sense. Patient's came home and found patient on the couch under some blankets. She notes that patient was talking nonsensically. She subsequently brought patient to the ED. She notes that she checked the pill bottles before coming and states that patient did not take any medications today. His fentanyl patch was also last changed on 08/22. She denies noticing any cough, fevers, diarrhea. Patient has chronic nausea and vomiting from his gastroparesis. She does not believe that patient had much of anything to eat today. In the ED, vitals were notable for elevated blood pressure. CT head was negative. CXR showed suspected left pleural effusion and/or consolidation. Patient received IVF's and Zofran. Past Medical/Surgical History Medical Problems: (1) Diabetes mellitus, type II Status: Chronic (2) Diabetic polyneuropathy Status: Chronic (3) Gastroparesis Permanent Comment: s/p gastric stimulator Status: Chronic (4) HTN (hypertension) Status: Chronic (5) Lung cancer Permanent Comment: dx 01/2016; s/p L side lobectomy; currently undergoing chemo Status: Chronic Surgical Problems: (1) H/O colonoscopy Permanent Comment: 04/22/2013- Mildly congested and erythematous mucosa in the ascending colon. One 1 mm polyp in the ascending colon resected. One benign appearing 1 mm polyp in the rectum resected. Internal hemorrhoids; Dr. Demarco Status: Chronic (2) H/O esophagogastroduodenoscopy Permanent Comment: 01/26/2015- [place] Grade B reflux esophagitis, gastritis; Dr. Major Status: Chronic (3) History of cholecystectomy Status: Resolved (4) History of tonsillectomy and adenoidectomy Status: Resolved (5) Hx of total knee arthroplasty Status: Resolved (6) S/P lobectomy of lung Permanent Comment: [place] [facility] [place] Status: Resolved Family History No pertinent family history Social History Smoking Status: Current Every Day Smoker Drug Use: none Marital Status: Housing status: lives with significant other Multi-Drug Resistant Organisms History of MDRO: No Allergies Coded Allergies: BEE STING (Verified Allergy, Mild, SWELLING AT SITE, SOB, 08/15/16) Penicillins (Verified Allergy, Unknown, "SINCE ", 08/15/16) Home Medications Scheduled Amlodipine (Norvasc), 10 MG PO DAILY Aspirin (Aspirin Ec), 81 MG PO QAM Fentanyl (Duragesic), 100 MCG TD CQ48HR Gabapentin (Neurontin), 600 MG PO TID Insulin Glargine (Lantus), 25 UNITS SC QPM Insulin Human Lispro (Humalog), 1 DOSE SC UD Magnesium Chloride (Slow-Mag Tab), 64 MG PO BID Metoprolol Tartrate (Lopressor) (Lopressor), 25 MG PO BID Multiple Vitamin (Multivitamins), 1 CAP PO QAM Scheduled PRN Acetaminophen (Tylenol), 1,000 MG PO TID PRN for Pain Dexamethasone (Decadron), 8 MG PO UD PRN for Chemo Day Of/Day After Epinephrine (Epipen), 0.3 MG IM UD PRN for ALLERGIC REACTION Hydromorphone Hcl (Dilaudid), 6 MG PO Q6H PRN for Pain Metoclopramide Hcl (Reglan), 10 MG PO ACHS PRN for Nausea Ondansetron (Ondansetron HCl), 8 MG PO Q8 PRN for Nausea Promethazine Hcl (Phenergan), 25 MG PO Q4H PRN for Nausea or Vomiting Tapentadol Hcl (Nucynta), 150 MG PO Q6H PRN for Pain Review of Systems unable to obtain as patient is confused. Physical Exam Vital Signs Date Time Temp Pulse Resp B/P Pulse Ox O2 Delivery O2 Flow Rate FiO2 08/25/16 17:16 96 08/25/16 16:59 95 20 195/125 99 Room Air 08/25/16 16:15 99 Room Air 08/25/16 15:50 36.7 105 20 197/107 98 Room Air General- confused Eyes- pupils non-reactive to light; right pupil appears larger than left ENT- moist mucous membranes Neck- no stridor; trachea midline Lungs- CTA bilaterally; no wheezes/crackles Heart- RRR; no m/r/g Abdomen- soft; NTND; nBS Back- no gross abnormalities Extremities- no c/c/e; no deformity Neuro- oriented to person; moves all 4 extremities spontaneously; does not follow simple commands Skin- no appreciable rash . Diagnostics Laboratory Results Results Past 24 Hours Test 08/25/16 15:54 08/25/16 16:15 Range/Units Bedside Glucose 265 70-99 mg/dl White Blood Count 5.43 4.8-10.8 K/uL Red Blood Count 3.54 4.7-6.1 M/uL Hemoglobin 10.3 14.0-18.0 g/dL Hematocrit 29.1 42-52 % Mean Corpuscular Volume 82.2 80-100 fL Mean Corpuscular Hemoglobin 29.1 25-34 pg Mean Corpuscular Hemoglobin Concent 35.4 32-36 g/dl Platelet Count 251 130-400 K/uL Mean Platelet Volume 8.9 7.4-10.4 fL Neutrophils (%) (Auto) 70.3 % Lymphocytes (%) (Auto) 14.5 % Monocytes (%) (Auto) 12.0 % Eosinophils (%) (Auto) 2.6 % Basophils (%) (Auto) 0.4 % Neutrophils # (Auto) 3.82 1.4-6.5 K/uL Lymphocytes # (Auto) 0.79 1.2-3.4 K/uL Monocytes # (Auto) 0.65 0.11-0.59 K/uL Eosinophils # (Auto) 0.14 0-0.5 K/uL Basophils # (Auto) 0.02 0-0.2 K/uL RDW Standard Deviation 47.5 36.4-46.3 fL RDW Coefficient of Variation 16.1 11.5-14.5 % Immature Granulocyte % (Auto) 0.2 % Immature Granulocyte # (Auto) 0.01 0.00-0.02 K/uL Prothrombin Time 11.4 9.0-12.0 SECONDS Prothromb Time International Ratio 1.1 0.9-1.1 Activated Partial Thromboplast Time 26.5 21.0-31.0 SECONDS Partial Thromboplastin Ratio 1.0 Sodium Level 138 136-145 mmol/L Potassium Level 3.8 3.5-5.1 mmol/L Chloride Level 95 98-107 mmol/L Carbon Dioxide Level 34 21-32 mmol/L Anion Gap 9.0 3-11 mmol/L Blood Urea Nitrogen 12 7-18 mg/dl Creatinine 1.30 0.60-1.40 mg/dl Estimated GFR () 73.7 Estimated GFR (Non- 63.6 BUN/Creatinine Ratio 8.9 10-20 Random Glucose 271 70-99 mg/dl Calcium Level 9.0 8.5-10.1 mg/dl Magnesium Level 1.1 1.8-2.4 mg/dl Total Bilirubin 0.6 0.2-1 mg/dl Direct Bilirubin 0.1 0-0.2 mg/dl Aspartate Amino Transf (AST/SGOT) 16 15-37 U/L Alanine Aminotransferase (ALT/SGPT) 14 12-78 U/L Alkaline Phosphatase 88 45-117 U/L Total Creatine Kinase 128 39-308 U/L Creatine Kinase MB 2.8 0.5-3.6 ng/ml Creatine Kinase MB Ratio 2.2 0-3.0 Troponin I < 0.015 0-0.045 ng/ml Total Protein 8.0 6.4-8.2 gm/dl Albumin 3.5 3.4-5.0 gm/dl Lipase 40 73-393 U/L Microbiology Results 08/25/16 Blood Culture, Received Pending 08/25/16 Blood Culture, Received Pending Diagnostic Radiology Possible left pleural effusion and/or consolidation Normal EKG Impression Assessment and Plan Patient is a 50 y/o male who presents for evaluation of confusion. Confusion - unclear etiology - patient's states that he did not take any pain medications today; pupils are not pinpoint on exam - trial with 1x dose of Narcan and patient became more agitated but confusion did not resolve - afebrile, normal oxygenation, normal WBC count -- making infection seem less likely - CXR with possibility of left pleural effusion and/or consolidation -- again, no cough, afebrile, normal WBC count -- all making pneumonia less likely - repeat 2 view CXR in am - check procalcitonin - blood cultures pending - check urinalysis - CT head negative - unable to do MRI as patient has a gastric pacemaker and does not have informational card; patient's does not believe that patient has ever had MRI Elevated blood pressure - CT head negative - patient did not take antihypertensives today - unable to give PO at this time due to confusion - hydralazine PRN Chronic pain - continue fentanyl patch and PRN Nucynta and Dilaudid Type 2 DM - Lantus and SSI - complicated with gastroparesis - continue Zofran PRN Stage 3 Non small cell lung cancer - follows with Dr. Amanda DVT prophylaxis with Lovenox. VTE Prophylaxis VTE Risk Assessment Done? Y/N: Yes Risk Level: Moderate
[2016-08-25 19:08] LABS: ISTAT CREATININE 1.1 mg/dl (0.6-1.3); ISTAT HEMOGLOBIN 9.9 g/dl (14.0-18.0); ISTAT IONIZED CALCIUM 1.05 mmol/l (1.12-1.32)
[2016-08-25] MEDS ORDERED: METOPROLOL TARTRATE 1 MG/ML VIAL IV PRN (19:15)
[2016-08-25 19:30] VITALS: BP 177/104; PULSE 100; TEMP 37; O2SAT 98; Ht 172.7 cm; Wt 80.6 kg
[2016-08-25] MEDS: FENTANYL 100 MCG/HR TDSY TD SCH (21:52)
[2016-08-25] MEDS: GABAPENTIN 300 MG CAP PO SCH (21:53)
[2016-08-25] MEDS: ENOXAPARIN 40 MG/0.4 ML SYR SC SCH (21:53)
[2016-08-25] MEDS: MAGNESIUM CHLORIDE 64MG DELAYED REL TAB PO SCH (21:54)
[2016-08-25] MEDS: METOPROLOL TARTRATE 25 MG TAB PO SCH (21:55)
[2016-08-25] MEDS: INSULIN ASPART 100 UNITS/ML 3 ML PEN SC SCH (21:56)
[2016-08-25] MEDS: INSULIN GLARGINE SOLOSTAR 100 UNITS/ML 3 ML PEN SC SCH (21:57)
[2016-08-25] MEDS: CHECK FENTANYL PATCH PLACEMENT SCH (22:59)
[2016-08-25 23:34] VITALS: BP 131/81; PULSE 88; TEMP 36.9; O2SAT 95
[2016-08-26] VITALS (9 sets, daily range): BP systolic 102–136; BP diastolic 68–86; PULSE 71–84; TEMP 36.4–37.3; O2SAT 92–98
[2016-08-26 05:56] LABS: HEMATOCRIT 27.8 % (42-52); MEAN CORPUSCULAR HGB CONC 34.9 g/dl (32-36); MEAN PLATELET VOLUME 8.9 fL (7.4-10.4); PLATELET COUNT 266 K/uL (130-400); RED BLOOD COUNT 3.35 M/uL (4.7-6.1); WHITE BLOOD COUNT 4.81 K/uL (4.8-10.8)
[2016-08-26 06:29] LABS: BUN/CREATININE RATIO 8.6 (10-20); CALCIUM 8.2 mg/dl (8.5-10.1); CREATININE 1.8 mg/dl (0.60-1.40); POTASSIUM 3.3 mmol/L (3.5-5.1)
[2016-08-26] MEDS: INSULIN ASPART 100 UNITS/ML 3 ML PEN SC SCH ×4 (07:00→21:26)
[2016-08-26] MEDS: ONDANSETRON INJ 2 MG/ML 2 ML VIAL IV PRN ×2 (07:55→19:18)
[2016-08-26] MEDS: CHECK FENTANYL PATCH PLACEMENT SCH ×2 (07:57→16:00)
[2016-08-26] MEDS ORDERED: POTASSIUM CHLORIDE 20 MEQ TABCR PO ONE (09:00)
[2016-08-26] MEDS: INSULIN GLARGINE SOLOSTAR 100 UNITS/ML 3 ML PEN SC SCH ×2 (09:05→21:28)
[2016-08-26] MEDS: ASPIRIN 81 MG ECTAB PO SCH (09:06)
[2016-08-26] MEDS: HYDROmorphone HCL 2 MG TAB PO PRN ×3 (09:06→21:21)
[2016-08-26] MEDS: AMLODIPINE BESYLATE 5 MG TAB PO SCH (09:06)
[2016-08-26] MEDS: METOPROLOL TARTRATE 25 MG TAB PO SCH ×2 (09:07→19:23)
[2016-08-26] MEDS: MAGNESIUM CHLORIDE 64MG DELAYED REL TAB PO SCH ×2 (09:07→19:24)
[2016-08-26] MEDS: MULTIVITAMIN TAB PO SCH (09:07)
[2016-08-26] MEDS: GABAPENTIN 300 MG CAP PO SCH ×3 (09:07→19:23)
--- NOTE | 2016-08-26 09:31 | DIAGNOSTIC IMAGING REPORT ---
CHEST 2 VIEWS ROUTINE HISTORY: Abnormal chest x-ray. Follow-up. COMPARISON: Chest 08/25/2016. FINDINGS: Small left pleural effusion, unchanged. A few linear scarlike density within the left lung. The right lung is clear. No pneumothorax. The heart is normal in size. IMPRESSION: No change in the small left pleural effusion. Electronically signed by: Danilo Langley M.D. 08/26/2016 9:29 AM Dictated Date/Time: 08/26/2016 9:27 AM
[2016-08-26] MEDS: SODIUM CHLORIDE 0.9% 1000ML 1,000 ML IV SCH ×2 (10:00→21:32)
[2016-08-26] MEDS: TAPENTADOL HCL 50 MG TAB PO PRN ×2 (12:33→19:19)
--- NOTE | 2016-08-26 16:00 | Progress Note ---
Medicine Progress Note Date & Time of Visit: Aug 26, 2016 at 15:52. Subjective Patient seen and examined. Sitting up at bedside, eating lunch. Does not remember the events of yesterday. Notes that he vomited his breakfast this morning. Parents present at bedside. Objective Last 8 Hrs Date Time Temp Pulse Resp B/P Pulse Ox O2 Delivery O2 Flow Rate FiO2 08/26/16 13:30 36.6 75 18 102/68 98 Room Air 08/26/16 13:15 36.6 71 18 98 08/26/16 12:00 Room Air 08/26/16 11:07 36.6 71 18 105/75 98 Room Air 08/26/16 08:00 Room Air Physical Exam: General-awake; alert; NAD Eyes-EOMI; no scleral icterus Neck-no stridor; trachea midline Lungs-CTA bilaterally; no wheezes/crackles Heart-RRR; no m/r/g Abdomen-soft; NTND; nBS Extremities-no c/c/e; no deformity Neuro-no focal deficits; oriented x3 Laboratory Results: Last 24 Hours Test 08/25/16 15:54 08/25/16 16:15 08/25/16 16:21 08/25/16 16:25 Bedside Glucose 265 mg/dl White Blood Count 5.43 K/uL Red Blood Count 3.54 M/uL Hemoglobin 10.3 g/dL Hematocrit 29.1 % Mean Corpuscular Volume 82.2 fL Mean Corpuscular Hemoglobin 29.1 pg Mean Corpuscular Hemoglobin Concent 35.4 g/dl Platelet Count 251 K/uL Mean Platelet Volume 8.9 fL Neutrophils (%) (Auto) 70.3 % Lymphocytes (%) (Auto) 14.5 % Monocytes (%) (Auto) 12.0 % Eosinophils (%) (Auto) 2.6 % Basophils (%) (Auto) 0.4 % Neutrophils # (Auto) 3.82 K/uL Lymphocytes # (Auto) 0.79 K/uL Monocytes # (Auto) 0.65 K/uL Eosinophils # (Auto) 0.14 K/uL Basophils # (Auto) 0.02 K/uL RDW Standard Deviation 47.5 fL RDW Coefficient of Variation 16.1 % Immature Granulocyte % (Auto) 0.2 % Immature Granulocyte # (Auto) 0.01 K/uL Prothrombin Time 11.4 SECONDS Prothromb Time International Ratio 1.1 Activated Partial Thromboplast Time 26.5 SECONDS Partial Thromboplastin Ratio 1.0 Sodium Level 138 mmol/L Potassium Level 3.8 mmol/L Chloride Level 95 mmol/L Carbon Dioxide Level 34 mmol/L Anion Gap 9.0 mmol/L 21.0 mmol/L Blood Urea Nitrogen 12 mg/dl Creatinine 1.30 mg/dl Estimated GFR () 73.7 Estimated GFR (Non- 63.6 BUN/Creatinine Ratio 8.9 Random Glucose 271 mg/dl Calcium Level 9.0 mg/dl Magnesium Level 1.1 mg/dl Total Bilirubin 0.6 mg/dl Direct Bilirubin 0.1 mg/dl Aspartate Amino Transf (AST/SGOT) 16 U/L Alanine Aminotransferase (ALT/SGPT) 14 U/L Alkaline Phosphatase 88 U/L Total Creatine Kinase 128 U/L Creatine Kinase MB 2.8 ng/ml Creatine Kinase MB Ratio 2.2 Troponin I < 0.015 ng/ml Total Protein 8.0 gm/dl Albumin 3.5 gm/dl Lipase 40 U/L Bedside Hemoglobin 9.9 g/dl Bedside Hematocrit 29 % Bedside Sodium 137 mEq/L Bedside Potassium 3.7 mEq/L Bedside Chloride 91 mEq/L Bedside Total CO2 30 mEq/l Bedside Blood Urea Nitrogen 11 mg/dl Bedside Creatinine 1.1 mg/dl Bedside Glucose (other) 271 mg/dl Bedside Ionized Calcium (Shanda) 1.05 mmol/l Bedside Lactic Acid Venous 1.22 mmol/L Test 08/25/16 19:09 08/25/16 20:43 08/26/16 05:24 08/26/16 07:00 Procalcitonin < 0.05 ng/ml Bedside Glucose 302 mg/dl 145 mg/dl White Blood Count 4.81 K/uL Red Blood Count 3.35 M/uL Hemoglobin 9.7 g/dL Hematocrit 27.8 % Mean Corpuscular Volume 83.0 fL Mean Corpuscular Hemoglobin 29.0 pg Mean Corpuscular Hemoglobin Concent 34.9 g/dl RDW Standard Deviation 49.6 fL RDW Coefficient of Variation 16.6 % Platelet Count 266 K/uL Mean Platelet Volume 8.9 fL Sodium Level 139 mmol/L Potassium Level 3.3 mmol/L Chloride Level 97 mmol/L Carbon Dioxide Level 37 mmol/L Anion Gap 5.0 mmol/L Blood Urea Nitrogen 15 mg/dl Creatinine 1.80 mg/dl Est Creatinine Clear Calc Drug Dose 47.5 ml/min Estimated GFR () 49.8 Estimated GFR (Non- 42.9 BUN/Creatinine Ratio 8.6 Random Glucose 163 mg/dl Calcium Level 8.2 mg/dl Test 08/26/16 11:21 Bedside Glucose 160 mg/dl Date/Time Source Procedure Growth Status 08/25/16 16:40 Blood Blood Culture Pending Received 08/25/16 16:15 Blood Blood Culture Pending Received Assessment & Plan Patient is a 50 y/o male who presented for evaluation of confusion. Confusion - unclear etiology - patient's states that he did not take any pain medications Saturday - trial with 1x dose of Narcan and patient became more awake and agitated but confusion did not resolve - afebrile, normal oxygenation, normal WBC count -- making infection seem less likely - CXR with possibility of left pleural effusion and/or consolidation -- again, no cough, afebrile, normal WBC count -- all making pneumonia less likely - repeat 2 view CXR with small left pleural effusion - procalcitonin normal - blood cultures pending - urinalysis pending - CT head negative - given improvement in clinical status, will hold on consideration for MRI at this time HTN - elevated blood pressure on admission as patient did not take antihypertensives - CT head negative - improved pressures - continue amlodipine and metoprolol - hydralazine and metoprolol PRN Chronic pain - continue fentanyl patch and PRN Nucynta and Dilaudid Type 2 DM - Lantus and SSI - complicated with gastroparesis - continue Zofran PRN Stage 3 Non small cell lung cancer - follows with Dr. Amanda DVT prophylaxis with Lovenox. Current Inpatient Medications: Current Inpatient Medications Medications (Trade) Dose Ordered Sig/Cal Route Start Time Stop Time Status Last Admin Dose Admin Enoxaparin Sodium (Lovenox Inj) 40 mg Q24H SC 08/25/16 21:00 09/24/16 20:59 08/25/16 21:53 40 MG Acetaminophen (Tylenol Tab) 650 mg Q4H PRN PO 08/25/16 18:00 09/24/16 17:59 Ondansetron HCl (Zofran Inj) 4 mg Q6H PRN IV 08/25/16 18:00 09/24/16 17:59 08/26/16 07:55 4 MG Polyethylene (Miralax Powder Packet) 17 gm DAILY PRN PO 08/25/16 18:00 09/24/16 17:59 Amlodipine Besylate (Norvasc Tab) 10 mg DAILY PO 08/26/16 09:00 09/25/16 08:59 08/26/16 09:06 10 MG Aspirin (Ecotrin Tab) 81 mg QAM PO 08/26/16 09:00 09/25/16 08:59 08/26/16 09:06 81 MG Fentanyl (Duragesic Patch) 100 mcg Q2D@1800 TD 08/25/16 21:00 09/08/16 20:59 08/25/16 21:52 100 MCG Gabapentin (Neurontin Cap) 600 mg TID PO 08/25/16 21:00 09/24/16 20:59 08/26/16 14:59 600 MG Hydromorphone HCl (Dilaudid Tab) 6 mg Q6H PRN PO 08/25/16 18:00 09/08/16 17:59 08/26/16 15:03 6 MG Magnesium Chloride (Slow-Mag Tab) 64 mg BID PO 08/25/16 21:00 09/24/16 20:59 08/26/16 09:07 64 MG Metoprolol Tartrate (Lopressor Tab) 25 mg BID PO 08/25/16 21:00 09/24/16 20:59 08/26/16 09:07 25 MG Multivitamins (Multivitamin Tab) 1 tab QAM PO 08/26/16 09:00 09/25/16 08:59 08/26/16 09:07 1 TAB Tapentadol (Nucynta Tab) 150 mg Q6 PRN PO 08/25/16 18:00 09/08/16 17:59 08/26/16 12:33 150 MG Insulin Glargine (Lantus Solostar Pen) 10 unit Q12 SC 08/25/16 21:00 09/24/16 20:59 08/26/16 09:05 10 UNIT Insulin Aspart (novoLOG ASPART) SLIDING SCALE If C... ACHS SC 08/25/16 21:00 09/24/16 20:59 08/26/16 12:35 4 UNITS Glucose (Glucose 40% Gel) 15-30 GRAMS 15 GRAMS... UD PRN PO 08/25/16 18:00 09/24/16 17:59 Glucose (Glucose Chew Tab) 4-8 Tablets 4 Tabl... UD PRN PO 08/25/16 18:00 09/24/16 17:59 Dextrose (Dextrose 50% 50ML Syringe) 25-50ML OF 50% DW IV FOR... UD PRN IV 08/25/16 18:00 09/24/16 17:59 Glucagon (Glucagon Inj) 1 mg UD PRN SQ 08/25/16 18:00 09/24/16 17:59 Hydralazine HCl (HydrALAZINE INJ) 5 mg Q6 PRN IV. 08/25/16 18:00 09/24/16 17:59 08/25/16 18:27 5 MG Metoprolol Tartrate (Lopressor Iv) 5 mg Q6 PRN IV 08/25/16 19:15 09/24/16 19:14 Miscellaneous (Fentanyl Patch Remove & Waste) 1 ea Q2D@1759 N/A 08/27/16 17:59 09/26/16 17:58 Miscellaneous Information 1 ea 1 ea QS N/A 08/26/16 00:00 09/25/16 00:00 08/26/16 07:57 1 EA Sodium Chloride (Nss 1000ml) 1,000 ml @ 80 mls/hr [id number] IV 08/26/16 09:00 09/25/16 08:59 08/26/16 10:00 80 MLS/HR
[2016-08-26 20:33] LABS: URINE APPEARANCE CLEAR (CLEAR); URINE BILIRUBIN NEG (NEG); URINE COLOR YELLOW; URINE NITRITE NEG (NEG); URINE SPECIFIC GRAVITY 1.015 (1.000-1.030); UROBILINOGEN NEG (NEG)
[2016-08-26 20:35] LABS: MANUAL MICROSCOPIC REQUIRED? NO; REVIEW REQ? YES
[2016-08-26 20:42] LABS: URINE MUCUS PRESENT (NONE PRSENT); URINE PATH CASTS 0-3 GRANULAR CASTS /lpf (0)
[2016-08-26 20:55] LABS: BENZODIAZEPINE, URINE NEG (NEG); COCAINE,URINE NEG (NEG); PHENCYCLIDINE, URINE NEG (NEG)
[2016-08-26] MEDS: ENOXAPARIN 40 MG/0.4 ML SYR SC SCH (21:29)
[2016-08-27] VITALS (8 sets, daily range): BP systolic 127–158; BP diastolic 79–90; PULSE 73–92; TEMP 36.4–36.7; O2SAT 94–100
[2016-08-27] MEDS: CHECK FENTANYL PATCH PLACEMENT SCH ×3 (00:29→16:14)
[2016-08-27] MEDS: ONDANSETRON INJ 2 MG/ML 2 ML VIAL IV PRN ×3 (01:31→15:09)
[2016-08-27] MEDS: TAPENTADOL HCL 50 MG TAB PO PRN ×3 (01:32→15:09)
[2016-08-27] MEDS: HYDROmorphone HCL 2 MG TAB PO PRN ×3 (04:47→18:58)
[2016-08-27 06:41] LABS: MEAN CELL VOLUME 82.8 fL (80-100); MEAN PLATELET VOLUME 8.8 fL (7.4-10.4); PLATELET COUNT 233 K/uL (130-400); RED BLOOD COUNT 3.38 M/uL (4.7-6.1); WHITE BLOOD COUNT 4.13 K/uL (4.8-10.8)
[2016-08-27 07:18] LABS: BUN/CREATININE RATIO 11.5 (10-20); CREATININE 1.6 mg/dl (0.60-1.40); POTASSIUM 3.6 mmol/L (3.5-5.1)
[2016-08-27] MEDS: METOPROLOL TARTRATE 25 MG TAB PO SCH ×2 (08:47→20:35)
[2016-08-27] MEDS: ASPIRIN 81 MG ECTAB PO SCH (08:47)
[2016-08-27] MEDS: MULTIVITAMIN TAB PO SCH (08:48)
[2016-08-27] MEDS: GABAPENTIN 300 MG CAP PO SCH ×3 (08:48→20:35)
[2016-08-27] MEDS: AMLODIPINE BESYLATE 5 MG TAB PO SCH (08:49)
[2016-08-27] MEDS: MAGNESIUM CHLORIDE 64MG DELAYED REL TAB PO SCH ×2 (08:49→20:35)
[2016-08-27] MEDS: INSULIN ASPART 100 UNITS/ML 3 ML PEN SC SCH ×4 (08:54→20:44)
[2016-08-27] MEDS: INSULIN GLARGINE SOLOSTAR 100 UNITS/ML 3 ML PEN SC SCH ×2 (08:55→20:42)
[2016-08-27] MEDS: SODIUM CHLORIDE 0.9% 1000ML 1,000 ML IV SCH ×2 (10:07→22:52)
[2016-08-27] MEDS: PROMETHAZINE HCL 25 MG TAB PO PRN ×2 (11:16→18:58)
[2016-08-27] MEDS ORDERED: FENTANYL PATCH REMOVE & WASTE SCH (17:59)
--- NOTE | 2016-08-27 18:05 | Progress Note ---
Medicine Progress Note Date & Time of Visit: Aug 27, 2016 at 18:01. Subjective Patient seen and examined. Frustrated at not remember events from last discharge to Saturday. Notes occasional shaking of his right hand. Still with vomiting, unchanged. present at bedside this afternoon and updated. Objective Last 8 Hrs Date Time Temp Pulse Resp B/P Pulse Ox O2 Delivery O2 Flow Rate FiO2 08/27/16 16:00 Room Air 08/27/16 15:42 36.6 82 20 127/85 99 Room Air 08/27/16 15:31 36.5 77 18 129/79 94 Room Air 08/27/16 11:56 36.4 79 18 154/80 97 Room Air Physical Exam: General-awake; alert; NAD Eyes-EOMI; no scleral icterus Neck-no stridor; trachea midline Lungs-CTA bilaterally; no wheezes/crackles Heart-RRR; no m/r/g Abdomen-soft; NTND; nBS Extremities-no c/c/e; no deformity Neuro-no focal deficits; oriented x3 Laboratory Results: Last 24 Hours Test 08/26/16 20:15 08/26/16 20:31 08/27/16 06:12 08/27/16 07:27 Urine Color YELLOW Urine Appearance CLEAR Urine pH 6.0 Urine Specific Royal 1.015 Urine Protein 1+ Urine Glucose (UA) 1+ Urine Ketones NEG Urine Occult Blood NEG Urine Nitrite NEG Urine Bilirubin NEG Urine Urobilinogen NEG Urine Leukocyte Esterase NEG Urine WBC (Auto) 1-5 /hpf Urine RBC (Auto) 0-4 /hpf Urine Hyaline Casts (Auto) 10-30 /lpf Urine Epithelial Cells (Auto) 10-20 /lpf Urine Bacteria (Auto) NEG Urine Pathogenic Casts 0-3 GRANULAR CASTS /lpf Urine Mucus PRESENT Urine Opiates Screen POS Urine Methadone, Qualitative NEG Urine Barbiturates NEG Urine Phencyclidine (PCP) Level NEG Ur Amphetamine/Methamphetamine NEG MDMA (Ecstasy) Screen NEG Urine Benzodiazepines Screen NEG Urine Cocaine Metabolite NEG Urine Marijuana (THC) NEG Bedside Glucose 213 mg/dl 102 mg/dl White Blood Count 4.13 K/uL Red Blood Count 3.38 M/uL Hemoglobin 9.8 g/dL Hematocrit 28.0 % Mean Corpuscular Volume 82.8 fL Mean Corpuscular Hemoglobin 29.0 pg Mean Corpuscular Hemoglobin Concent 35.0 g/dl RDW Standard Deviation 49.5 fL RDW Coefficient of Variation 16.5 % Platelet Count 233 K/uL Mean Platelet Volume 8.8 fL Sodium Level 138 mmol/L Potassium Level 3.6 mmol/L Chloride Level 100 mmol/L Carbon Dioxide Level 33 mmol/L Anion Gap 5.0 mmol/L Blood Urea Nitrogen 18 mg/dl Creatinine 1.60 mg/dl Est Creatinine Clear Calc Drug Dose 53.4 ml/min Estimated GFR () 57.4 Estimated GFR (Non- 49.5 BUN/Creatinine Ratio 11.5 Random Glucose 103 mg/dl Calcium Level 8.0 mg/dl Test 08/27/16 11:37 08/27/16 16:29 Bedside Glucose 94 mg/dl 132 mg/dl Assessment & Plan Patient is a 50 y/o male who presented for evaluation of confusion. Confusion -- resolved - unclear etiology - patient's states that he did not take any pain medications Saturday - trial with 1x dose of Narcan and patient became more awake and agitated but confusion did not resolve - afebrile, normal oxygenation, normal WBC count -- making infection seem less likely - CXR with possibility of left pleural effusion and/or consolidation -- again, no cough, afebrile, normal WBC count -- all making pneumonia less likely - repeat 2 view CXR with small left pleural effusion - procalcitonin normal - blood cultures ngtd - urinalysis with bland sediment - CT head negative HTN - elevated blood pressure on admission as patient did not take antihypertensives - CT head negative - improved pressures - continue amlodipine and metoprolol - hydralazine and metoprolol PRN Chronic pain - continue fentanyl patch and PRN Nucynta and Dilaudid Type 2 DM - Lantus and SSI (patient non-compliant with insulin at home per ) - complicated with gastroparesis - continue Zofran PRN Stage 3 Non small cell lung cancer - follows with Dr. Amanda DVT prophylaxis with Lovenox. Anticipate discharge home with home health tomorrow. Current Inpatient Medications: Current Inpatient Medications Medications (Trade) Dose Ordered Sig/Cal Route Start Time Stop Time Status Last Admin Dose Admin Enoxaparin Sodium (Lovenox Inj) 40 mg Q24H SC 08/25/16 21:00 09/24/16 20:59 08/26/16 21:29 40 MG Acetaminophen (Tylenol Tab) 650 mg Q4H PRN PO 08/25/16 18:00 09/24/16 17:59 Ondansetron HCl (Zofran Inj) 4 mg Q6H PRN IV 08/25/16 18:00 09/24/16 17:59 08/27/16 15:09 4 MG Polyethylene (Miralax Powder Packet) 17 gm DAILY PRN PO 08/25/16 18:00 09/24/16 17:59 Amlodipine Besylate (Norvasc Tab) 10 mg DAILY PO 08/26/16 09:00 09/25/16 08:59 08/27/16 08:49 10 MG Aspirin (Ecotrin Tab) 81 mg QAM PO 08/26/16 09:00 09/25/16 08:59 08/27/16 08:47 81 MG Fentanyl (Duragesic Patch) 100 mcg Q2D@1800 TD 08/25/16 21:00 09/08/16 20:59 08/25/16 21:52 100 MCG Gabapentin (Neurontin Cap) 600 mg TID PO 08/25/16 21:00 09/24/16 20:59 08/27/16 15:09 600 MG Hydromorphone HCl (Dilaudid Tab) 6 mg Q6H PRN PO 08/25/16 18:00 09/08/16 17:59 08/27/16 11:15 6 MG Magnesium Chloride (Slow-Mag Tab) 64 mg BID PO 08/25/16 21:00 09/24/16 20:59 08/27/16 08:49 64 MG Metoprolol Tartrate (Lopressor Tab) 25 mg BID PO 08/25/16 21:00 09/24/16 20:59 08/27/16 08:47 25 MG Multivitamins (Multivitamin Tab) 1 tab QAM PO 08/26/16 09:00 09/25/16 08:59 08/27/16 08:48 1 TAB Tapentadol (Nucynta Tab) 150 mg Q6 PRN PO 08/25/16 18:00 09/08/16 17:59 08/27/16 15:09 150 MG Insulin Glargine (Lantus Solostar Pen) 10 unit Q12 SC 08/25/16 21:00 09/24/16 20:59 08/27/16 08:55 10 UNIT Insulin Aspart (novoLOG ASPART) SLIDING SCALE If C... ACHS SC 08/25/16 21:00 09/24/16 20:59 08/27/16 12:47 1 UNITS Glucose (Glucose 40% Gel) 15-30 GRAMS 15 GRAMS... UD PRN PO 08/25/16 18:00 09/24/16 17:59 Glucose (Glucose Chew Tab) 4-8 Tablets 4 Tabl... UD PRN PO 08/25/16 18:00 09/24/16 17:59 Dextrose (Dextrose 50% 50ML Syringe) 25-50ML OF 50% DW IV FOR... UD PRN IV 08/25/16 18:00 09/24/16 17:59 Glucagon (Glucagon Inj) 1 mg UD PRN SQ 08/25/16 18:00 09/24/16 17:59 Hydralazine HCl (HydrALAZINE INJ) 5 mg Q6 PRN IV. 08/25/16 18:00 09/24/16 17:59 08/25/16 18:27 5 MG Metoprolol Tartrate (Lopressor Iv) 5 mg Q6 PRN IV 08/25/16 19:15 09/24/16 19:14 Miscellaneous (Fentanyl Patch Remove & Waste) 1 ea Q2D@1759 N/A 08/27/16 17:59 09/26/16 17:58 Miscellaneous Information 1 ea 1 ea QS N/A 08/26/16 00:00 09/25/16 00:00 08/27/16 16:14 1 EA Sodium Chloride (Nss 1000ml) 1,000 ml @ 80 mls/hr [id number] IV 08/26/16 09:00 09/25/16 08:59 08/27/16 10:07 80 MLS/HR Promethazine HCl (Phenergan Tab) 25 mg Q4H PRN PO 08/27/16 11:00 09/26/16 10:59 08/27/16 11:16 25 MG
--- NOTE | 2016-08-27 18:07 | Discharge Instructions ---
Discharge Instructions Date of Service Aug 27, 2016. Admission Reason for Admission: Confusion Discharge Discharge Diagnosis / Problem: Confusion Discharge Goals Goal(s): Diagnostic testing Activity Recommendations Activity Limitations: resume your previous activity . Instructions / Follow-Up Instructions / Follow-Up Please follow up with Family Medicine Dr. Burgess on September 03 at 10:45am. Please follow up with Pain management Dr. Mota on August 28 at 9:00am. Dr. Mota will take care of refilling your narcotic pain medications. Please follow up with Oncology Dr. Amanda on August 29 at 11:45am. Current Hospital Diet Patient's current hospital diet: Diabetes Type 2 Diet Discharge Diet Recommended Diet: Diabetes Type 2 Diet Pending Studies Studies pending at discharge: no Laboratory Results Hemoglobin A1c Test 08/06/16 06:48 Range/Units Estimated Average Glucose 252 mg/dl Hemoglobin A1c 10.4 H 4.5-5.6 % Medical Emergencies . Who to Call and When: Medical Emergencies: If at any time you feel your situation is an emergency, please call 911 immediately. . Non-Emergent Contact Non-Emergency issues call your: Primary Care Provider . . "Provider Documentation" section prepared by Claudia Myers. . VTE Core Measure Inpt VTE Proph given/why not?: Enoxaparin (Lovenox)SQ
[2016-08-27] MEDS: FENTANYL 100 MCG/HR TDSY TD SCH (18:16)
[2016-08-27] MEDS: ENOXAPARIN 40 MG/0.4 ML SYR SC SCH (20:34)
[2016-08-28] MEDS: CHECK FENTANYL PATCH PLACEMENT SCH ×2 (00:41→07:54)
[2016-08-28] MEDS: ONDANSETRON INJ 2 MG/ML 2 ML VIAL IV PRN (01:44)
[2016-08-28] MEDS: HYDROmorphone HCL 2 MG TAB PO PRN ×2 (01:47→07:59)
[2016-08-28] MEDS: TAPENTADOL HCL 50 MG TAB PO PRN (02:49)
[2016-08-28 04:06] VITALS: BP 167/93; PULSE 89; TEMP 36.8; O2SAT 99
[2016-08-28 07:05] VITALS: BP_SYST 147; BP_SYST 167; BP_DIAS 82; BP_DIAS 93; PULSE 89; PULSE 90; TEMP 36.8; O2SAT 99
[2016-08-28 07:23] VITALS: BP 99/72; PULSE 93; TEMP 36.5; O2SAT 100
[2016-08-28] MEDS: ASPIRIN 81 MG ECTAB PO SCH (07:56)
[2016-08-28] MEDS: METOPROLOL TARTRATE 25 MG TAB PO SCH (07:57)
[2016-08-28] MEDS: MULTIVITAMIN TAB PO SCH (07:57)
[2016-08-28] MEDS: GABAPENTIN 300 MG CAP PO SCH (07:58)
[2016-08-28] MEDS: AMLODIPINE BESYLATE 5 MG TAB PO SCH (07:58)
[2016-08-28] MEDS: MAGNESIUM CHLORIDE 64MG DELAYED REL TAB PO SCH (07:58)
[2016-08-28] MEDS: PROMETHAZINE HCL 25 MG TAB PO PRN (08:00)
[2016-08-28] MEDS: INSULIN ASPART 100 UNITS/ML 3 ML PEN SC SCH (08:03)
--- NOTE | 2016-08-28 09:45 | Discharge Summary ---
Discharge Summary Date of Service Aug 28, 2016. Discharge Summary Admission Date: Aug 25, 2016 at 17:51 Discharge Date: Aug 28, 2016 Discharge Disposition: Home with services Principal Diagnosis: Confusion Consultations: Psychiatry Medication Reconciliation Continued Medications: Acetaminophen (Tylenol) 500 Mg Tab 1000 MG PO TID PRN for Pain Amlodipine (Norvasc) 10 Mg Tab 10 MG PO DAILY, TAB Aspirin (Aspirin Ec) 81 Mg Tab 81 MG PO QAM Dexamethasone (Decadron) 4 Mg Tab 8 MG PO UD PRN for Chemo Day Of/Day After, TAB TAKE ONLY ON DAY OF AND DAY AFTER CHEMO Epinephrine (Epipen) 0.3 Mg/0.3 Ml Inj 0.3 MG IM UD PRN for ALLERGIC REACTION Fentanyl (Duragesic) 50 Mcg Tdsy 100 MCG TD [id number], PATCH Gabapentin (Neurontin) 300 Mg Cap 600 MG PO TID, CAP Hydromorphone Hcl (Dilaudid) 2 Mg Tab 8 MG PO Q8 PRN for Pain, TAB Insulin Glargine (Lantus) 100 Unit/Ml Inj 25 UNITS SC QPM, VIAL Insulin Human Lispro (Humalog) 1 Ea Inj 1 DOSE SC UD 1 unit for every 10 greater than 120 Magnesium Chloride (Slow-Mag Tab) 64 Mg Tabcr 64 MG PO BID, TAB Metoclopramide Hcl (Reglan) 10 Mg Tab 10 MG PO ACHS PRN for Nausea, TAB Metoprolol Tartrate (Lopressor) (Lopressor) 25 Mg Tab 25 MG PO BID, TAB Multiple Vitamin (Multivitamins) 1 Cap Cap 1 CAP PO QAM Ondansetron (Ondansetron HCl) 4 Mg Tab 8 MG PO Q8 PRN for Nausea Promethazine Hcl (Phenergan) 12.5 Mg Tab 25 MG PO Q4H PRN for Nausea or Vomiting Tapentadol Hcl (Nucynta) 100 Mg Tab 150 MG PO Q6H PRN for Pain, TAB Admission Information HPI (per Admitting provider): Patient is a 50 y/o male with a h/o stage 3 lung cancer, HTN, diabetes complicated by gastroparesis who presents for evaluation of confusion. History is obtained from patient's as patient is unable to provide. states that patient appeared to be in his usual state of health when she left for work this morning around 5:30am. She received a call this afternoon from her daughter who stated that patient wasn't making any sense. Patient's came home and found patient on the couch under some blankets. She notes that patient was talking nonsensically. She subsequently brought patient to the ED. She notes that she checked the pill bottles before coming and states that patient did not take any medications today. His fentanyl patch was also last changed on 08/22. She denies noticing any cough, fevers, diarrhea. Patient has chronic nausea and vomiting from his gastroparesis. She does not believe that patient had much of anything to eat today. In the ED, vitals were notable for elevated blood pressure. CT head was negative. CXR showed suspected left pleural effusion and/or consolidation. Patient received IVF's and Zofran. Physical Exam (per Admitting): General- confused Eyes- pupils non-reactive to light; right pupil appears larger than left ENT- moist mucous membranes Neck- no stridor; trachea midline Lungs- CTA bilaterally; no wheezes/crackles Heart- RRR; no m/r/g Abdomen- soft; NTND; nBS Back- no gross abnormalities Extremities- no c/c/e; no deformity Neuro- oriented to person; moves all 4 extremities spontaneously; does not follow simple commands Skin- no appreciable rash . Hospital Course Patient is a 50 y/o male who presented for evaluation of confusion. Etiology of confusion remains unclear, but is possibly related to narcotics (patient is on fentanyl patch, Nucynta and Dilaudid). Patient's stated that patient did not take any pain medications on the day of presentation and his fentanyl patch had not been changed since 08/22. Patient received one dose of Narcan in the ED. He became more awake and agitated, but the confusion did not resolve. Vitals on admission were notable for elevated blood pressure, but patient had not taken any of his medications that day. CXR on admission showed a possible left pleural effusion and/or consolidation. Patient had no cough, was afebrile, WBC count was normal, procalcitonin was normal, patient had normal oxygen saturation on room air. Repeat CXR showed a small left pleural effusion. It was not felt that patient had pneumonia. Blood cultures were negative. Urinalysis showed a bland sediment. CT head was negative. Patient was continued on his home medications. No changes were made. Confusion resolved the next hospital day. Patient deemed stable for discharge with Pain management, Oncology and Family Medicine follow up. PE on discharge: General- awake; alert; NAD Eyes- EOMI; no scleral icterus Neck- no stridor; trachea midline Lungs- CTA bilaterally; no wheezes/crackles Heart- RRR; no m/r/g Abdomen- soft; NTND; nBS Back- no gross abnormalities Extremities- no c/c/e; no deformity Neuro- no focal deficits Skin- no appreciable rash or bruise . Total time spent on discharge = This includes examination of the patient, discharge planning, medication reconciliation, and communication with other providers. Discharge Instructions Discharge Instructions Date of Service Aug 27, 2016. Admission Reason for Admission: Confusion Discharge Discharge Diagnosis / Problem: Confusion Discharge Goals Goal(s): Diagnostic testing Activity Recommendations Activity Limitations: resume your previous activity . Instructions / Follow-Up Instructions / Follow-Up Please follow up with Family Medicine Dr. Burgess on September 03 at 10:45am. Please follow up with Pain management Dr. Mota on August 28 at 9:00am. Dr. Mota will take care of refilling your narcotic pain medications. Please follow up with Oncology Dr. Amanda on August 29 at 11:45am. Current Hospital Diet Patient's current hospital diet: Diabetes Type 2 Diet Discharge Diet Recommended Diet: Diabetes Type 2 Diet Pending Studies Studies pending at discharge: no Laboratory Results Hemoglobin A1c Test 08/06/16 06:48 Range/Units Estimated Average Glucose 252 mg/dl Hemoglobin A1c 10.4 H 4.5-5.6 % Medical Emergencies . Who to Call and When: Medical Emergencies: If at any time you feel your situation is an emergency, please call 911 immediately. . Non-Emergent Contact Non-Emergency issues call your: Primary Care Provider . . "Provider Documentation" section prepared by Claudia Myers. . VTE Core Measure Inpt VTE Proph given/why not?: Enoxaparin (Lovenox)SQ Additional Copies To Bran Burgess M.D.
[2016-08-30 03:27] LABS: COD UR NEGATIVE NG/ML (CUTOFF=50); HYDROCOD UR NEGATIVE NG/ML (CUTOFF=50); HYDROMOR UR 3010 NG/ML (CUTOFF=50); MORPHINE UR NEGATIVE NG/ML (CUTOFF=50); NORHYDROCODONE CONF UR NEGATIVE NG/ML (CUTOFF=50); OXYMORPH UR NEGATIVE NG/ML (CUTOFF=50)
[2016-10-05] MEDS ORDERED: FENT100D10 TOP (09:21)
[2016-10-05] MEDS ORDERED: DRGTP50 TOP (09:21)
[2016-10-18] MEDS ORDERED: INSDGIPEN SC (14:52)
[2016-10-18] MEDS ORDERED: NVLG SC (15:02)
[2016-12-19] MEDS ORDERED: FOLI1TAB7 PO (15:00)
[2016-12-19] MEDS ORDERED: FENT75DI2 EX (15:00)
[2016-12-19] MEDS ORDERED: LEVE750T PO (15:00)
[2017-01-14] MEDS ORDERED: AMLO-114 PO (09:25)
[2017-01-14] MEDS ORDERED: NRN/600 PO (09:25)
[2017-01-14] MEDS ORDERED: VNTHFA/IN INH (09:25)
[2017-03-19] MEDS ORDERED: CEFA1INJ IV (10:26)
[2017-03-19] MEDS ORDERED: PEGSOL13 (10:26)
[2017-03-19] MEDS ORDERED: FERR1TAB13 PO (10:26)
[2017-03-19] MEDS ORDERED: PRLSR20 PO (10:26)
[2017-03-19] MEDS ORDERED: HYDR2TAB48 PO (10:26)
[2017-03-19] MEDS ORDERED: LISI-725 PO (10:27)
[2017-03-19] MEDS ORDERED: HYZ/50125 PO (10:27)
[2017-03-19] MEDS ORDERED: DRGTP100 (10:27)
== END 2016-08-28 08:25 | disposition home health service (06) | DRG 948 ==
LOC: ENRESERVTM → ENRESERVDT → C.EDB 15:49 → C.2E 17:51 → C.4E 08-26 11:54
PROVIDERS: ADMIT Internal Medicine; ATTEND Internal Medicine
DX: R41.0 Disorientation, unspecified (principal); E11.43 Type 2 diabetes mellitus with diabetic autonomic (poly)neuropathy; I10 Essential (primary) hypertension; Z85.118 Personal history of other malignant neoplasm of bronchus and lung; Z90.2 Acquired absence of lung [part of]; Z86.010 Personal history of colon polyps; Z90.49 Acquired absence of other specified parts of digestive tract; Z96.659 Presence of unspecified artificial knee joint; F17.210 Nicotine dependence, cigarettes, uncomplicated; Z91.030 Bee allergy status; Z88.0 Allergy status to penicillin; Z79.82 Long term (current) use of aspirin; Z79.899 Other long term (current) drug therapy; Z79.4 Long term (current) use of insulin; G89.29 Other chronic pain

== ENCOUNTER 2016-08-28 10:30 | Emergency (ER) | payer OTHER ==
[~2016-08-28 10:30] MED LIST changes: +ACET-1256 PO; +ASPI81TA28 PO; +DXM/4 PO; +GABA-113 PO; -HYDR2TAB3 PO; +HYDR2TAB48 PO; +INSDGI SC; +INSPMPHMLG SC; -LPR25 PO; +METO-157 PO; +METO25TA56 PO; +PROM12.56 PO; -RGL10 PO
[2016-08-28 10:52] VITALS: TEMP 36.7
[2016-08-28] MEDS ORDERED: SODIUM CHLORIDE 0.9% 1000ML 1,000 ML IV STA (11:34)
--- NOTE | 2016-08-28 11:38 | EMERGENCY ROOM VISIT NOTE ---
History Report prepared by Nedra: Ana Luisa Villavicencio Under the Supervision of: Dr. Jack Toney M.D. First contact with patient: 11:27 Chief Complaint: HYPOTENSION Stated Complaint: LOW BLOOD PRESSURE History of Present Illness The patient is a 51 year old male who presents to the Emergency Room with complaints of persistent hypotension that was found today prior to arrival. He currently rates his discomfort as a 5/10 in severity. The patient states that he was discharged from the hospital today and when to Dr. Hope's office for pain management. He states that upon arrival he was found to be hypotensive. The patient states that at first he felt dizzy and diaphoretic, but states that his symptoms have subsided. He states that he has been ambulating normally and feels fine now. The patient states that he was instructed to come to the emergency department for further evaluation. Source of History: patient Onset: prior to arrival Position: other (global) Symptom Intensity: 5/10 Quality: other (hypotension) Timing: other (persistent) Associated Symptoms: + diaphoresis Note: Associated Symptoms: dizzy Review of Systems See HPI for pertinent positives & negatives. A total of 10 systems reviewed and were otherwise negative. Past Medical & Surgical Medical Problems: (1) Confusion (2) Diabetes mellitus, type II (3) Diabetic polyneuropathy (4) Gastroparesis (5) HTN (hypertension) (6) Lung cancer (7) Nausea and vomiting Surgical Problems: (1) H/O colonoscopy (2) H/O esophagogastroduodenoscopy (3) History of cholecystectomy (4) History of tonsillectomy and adenoidectomy (5) Hx of total knee arthroplasty (6) S/P lobectomy of lung Family History No pertinent family history Social History Smoking Status: Former Smoker Drug Use: none Marital Status: Housing Status: lives with family Current/Historical Medications Scheduled Amlodipine (Norvasc), 10 MG PO DAILY Aspirin (Aspirin Ec), 81 MG PO QAM Fentanyl (Duragesic), 100 MCG TD CQ48HR Gabapentin (Neurontin), 600 MG PO TID Insulin Glargine (Lantus), 25 UNITS SC QPM Insulin Human Lispro (Humalog), 1 DOSE SC UD Magnesium Chloride (Slow-Mag Tab), 64 MG PO BID Metoprolol Tartrate (Lopressor) (Lopressor), 25 MG PO BID Multiple Vitamin (Multivitamins), 1 CAP PO QAM Scheduled PRN Acetaminophen (Tylenol), 1,000 MG PO TID PRN for Pain Dexamethasone (Decadron), 8 MG PO UD PRN for Chemo Day Of/Day After Epinephrine (Epipen), 0.3 MG IM UD PRN for ALLERGIC REACTION Hydromorphone Hcl (Dilaudid), 8 MG PO Q8 PRN for Pain Metoclopramide Hcl (Reglan), 10 MG PO ACHS PRN for Nausea Ondansetron (Ondansetron HCl), 8 MG PO Q8 PRN for Nausea Promethazine Hcl (Phenergan), 25 MG PO Q4H PRN for Nausea or Vomiting Tapentadol Hcl (Nucynta), 150 MG PO Q6H PRN for Pain Allergies Coded Allergies: BEE STING (Verified Allergy, Mild, SWELLING AT SITE, SOB, 08/15/16) Penicillins (Verified Allergy, Unknown, "SINCE ", 08/15/16) Physical Exam Vital Signs Date Time Temp Pulse Resp B/P Pulse Ox O2 Delivery O2 Flow Rate FiO2 08/28/16 13:02 88 18 135/77 99 08/28/16 11:06 86 08/28/16 11:05 86 150/99 85 129/79 86 80/49 08/28/16 10:52 36.7 82 20 103/65 98 Room Air Physical Exam GENERAL: Patient is a healthy-appearing well-nourished HEAD: Normocephalic atraumatic EYES: Ocular movements intact pupils equal and react to light OROPHARYNX mucous membranes are moist no exudates present no erythema or edema present NECK: Supple no nuchal rigidity CHEST: Good equal expansion LUNGS: Clear and equal to auscultation CARDIAC: Normal S1 and S2 ABDOMEN: Soft nontender no guarding BACK: No CVA tenderness EXTREMITIES: No pain upon palpation normal muscle strength in all groups no clubbing cyanosis or edema NEURO: Patient is following commands is answering questions appropriately. Alert and oriented x3 Cranial Nerves 2-12 grossly intact Medical Decision & Procedures Laboratory Results 08/28/16 11:50 Red Blood Count 2.96, Mean Corpuscular Volume 84.5, Mean Corpuscular Hemoglobin 28.7, Mean Corpuscular Hemoglobin Concent 34.0, Mean Platelet Volume 9.0, Neutrophils (%) (Auto) 57.5, Lymphocytes (%) (Auto) 26.6, Monocytes (%) (Auto) 12.0, Eosinophils (%) (Auto) 2.9, Basophils (%) (Auto) 0.5, Neutrophils # (Auto ) 3.15, Lymphocytes # (Auto) 1.46, Monocytes # (Auto) 0.66, Eosinophils # (Auto ) 0.16, Basophils # (Auto) 0.03 08/28/16 11:50 Test 08/28/16 11:50 08/28/16 11:55 White Blood Count 5.49 K/uL (4.8-10.8) Red Blood Count 2.96 M/uL (4.7-6.1) Hemoglobin 8.5 g/dL (14.0-18.0) Hematocrit 25.0 % (42-52) Mean Corpuscular Volume 84.5 fL (80-100) Mean Corpuscular Hemoglobin 28.7 pg (25-34) Mean Corpuscular Hemoglobin Concent 34.0 g/dl (32-36) Platelet Count 292 K/uL (130-400) Mean Platelet Volume 9.0 fL (7.4-10.4) Neutrophils (%) (Auto) 57.5 % Lymphocytes (%) (Auto) 26.6 % Monocytes (%) (Auto) 12.0 % Eosinophils (%) (Auto) 2.9 % Basophils (%) (Auto) 0.5 % Neutrophils # (Auto) 3.15 K/uL (1.4-6.5) Lymphocytes # (Auto) 1.46 K/uL (1.2-3.4) Monocytes # (Auto) 0.66 K/uL (0.11-0.59) Eosinophils # (Auto) 0.16 K/uL (0-0.5) Basophils # (Auto) 0.03 K/uL (0-0.2) RDW Standard Deviation 51.8 fL (36.4-46.3) RDW Coefficient of Variation 17.1 % (11.5-14.5) Immature Granulocyte % (Auto) 0.5 % Immature Granulocyte # (Auto) 0.03 K/uL (0.00-0.02) Estimated GFR () 41.0 Estimated GFR (Non- 35.4 BUN/Creatinine Ratio 10.6 (10-20) Calcium Level 8.1 mg/dl (8.5-10.1) Phosphorus Level 4.5 mg/dl (2.5-4.9) Albumin 3.2 gm/dl (3.4-5.0) Bedside Hemoglobin 8.2 g/dl (14.0-18.0) Bedside Hematocrit 24 % (42-52) Bedside Sodium 138 mEq/L (135-144) Bedside Potassium 4.1 mEq/L (3.3-5.0) Bedside Chloride 95 mEq/L (101-112) Bedside Total CO2 29 mEq/l (24-31) Anion Gap 20.0 mmol/L (16-25) Bedside Blood Urea Nitrogen 24 mg/dl (7-18) Bedside Creatinine 2.1 mg/dl (0.6-1.3) Bedside Glucose (other) 158 mg/dl (70-99) Bedside Ionized Calcium (Shanda) 1.05 mmol/l (1.12-1.32) Labs reviewed by ED physician. Medications Administered Medications (Trade) Dose Ordered Sig/Cal Route Start Time Stop Time Status Last Admin Dose Admin Sodium Chloride (Nss 1000ml) 1,000 ml @ 999 mls/hr Q1H1M STAT IV 08/28/16 11:34 08/28/16 12:34 DC 08/28/16 11:34 999 MLS/HR ECG Indication: other (hypotension) Rate (beats per minute): 80 Rhythm: normal sinus Findings: no acute ischemic change, no ectopy ED Course 1129: Past medical records reviewed. The patient was evaluated in room B12B. A complete history and physical examination was performed. 1134: Ordered Sodium Chloride 1000 ml @ 999 mls/hr IV. 1238: I reevaluated the patient and he is feeling well. I discussed the exam findings with him and I discussed the treatment plan. He verbalized complete understanding and agreement. He is ready to go home. Medical Decision Differential diagnosis: Etiologies such as metabolic, infection, hypo/hyperglycemia, electrolyte abnormalities, cardiac sources, intracerebral event, toxicologic, neurologic, as well as others were entertained. Us is a 51-year-old male who presents emergency department after being discharged today. The patient was sent to the emergency department for low blood pressure however the patient is asymptomatic and has no complaints. An IV was established, the patient given normal saline bolus. His creatinine is bumped today. The patient is much improved here she department and he wished to be discharged home for this reason I stressed the need for increasing in fluids over the next 48 hours. Patient was in agreement with the treatment plan. Impression Primary Impression: Dehydration Additional Impression: Orthostatic hypotension Scribe Attestation The scribe's documentation has been prepared under my direction and personally reviewed by me in its entirety. I confirm that the note above accurately reflects all work, treatment, procedures, and medical decision making performed by me. Departure Information Dispostion Home / Self-Care Referrals Bran Burgess M.D. (PCP) Forms HOME CARE DOCUMENTATION FORM, IMPORTANT VISIT INFORMATION, WORK / SCHOOL INSTRUCTIONS Patient Instructions Dehydration, ED Hypotension Orthostatic, My [facility] Additional Instructions Increase fluid intake next 48 hours You have been examined and treated today on an emergency basis only. This is not a substitute for, or an effort to provide, complete comprehensive medical care. It is impossible to recognize and treat all injuries or illnesses in a single emergency department visit. It is therefore important that you follow up closely with Dr Burgess. Call as soon as possible for an appointment. Thank you for your time and consideration. I look forward to speaking with you again soon. Please don't hesitate to call us if you have any questions. Problem Qualifiers
[2016-08-28 12:07] LABS: BASO % 0.5 %; BASO ABS # 0.03 K/uL (0-0.2); EOS % 2.9 %; IG% 0.5 %; LYMPH % 26.6 %; LYMPH ABS # 1.46 K/uL (1.2-3.4); MEAN CELL VOLUME 84.5 fL (80-100); MEAN CORPUSCULAR HEMOGLOBIN 28.7 pg (25-34); NEUT % 57.5 %; PLATELET COUNT 292 K/uL (130-400); RED BLOOD COUNT 2.96 M/uL (4.7-6.1); WHITE BLOOD COUNT 5.49 K/uL (4.8-10.8)
[2016-08-28 12:23] LABS: BLOOD UREA NITROGEN 22 mg/dl (7-18); BUN/CREATININE RATIO 10.6 (10-20); CARBON DIOXIDE 32 mmol/L (21-32); CHLORIDE 99 mmol/L (98-107); GLUCOSE 161 mg/dl (70-99); PHOSPHORUS 4.5 mg/dl (2.5-4.9); SODIUM 138 mmol/L (136-145)
[2016-08-28 12:41] LABS: CALCIUM 8.1 mg/dl (8.5-10.1)
[2016-08-28 12:47] LABS: COMPLETE YES
[2016-08-28 13:02] VITALS: BP 135/77; PULSE 88; O2SAT 99
[2016-08-28 13:56] LABS: ISTAT CREATININE 2.1 mg/dl (0.6-1.3); ISTAT HEMOGLOBIN 8.2 g/dl (14.0-18.0); ISTAT IONIZED CALCIUM 1.05 mmol/l (1.12-1.32)
[2016-10-05] MEDS ORDERED: DRGTP50 TOP (09:21)
[2016-10-05] MEDS ORDERED: FENT100D10 TOP (09:21)
[2016-10-18] MEDS ORDERED: INSDGIPEN SC (14:52)
[2016-10-18] MEDS ORDERED: NVLG SC (15:02)
[2016-12-19] MEDS ORDERED: FENT75DI2 EX (15:00)
[2016-12-19] MEDS ORDERED: LEVE750T PO (15:00)
[2016-12-19] MEDS ORDERED: FOLI1TAB7 PO (15:00)
[2017-01-14] MEDS ORDERED: VNTHFA/IN INH (09:25)
[2017-01-14] MEDS ORDERED: NRN/600 PO (09:25)
[2017-01-14] MEDS ORDERED: AMLO-114 PO (09:25)
[2017-03-19] MEDS ORDERED: CEFA1INJ IV (10:26)
[2017-03-19] MEDS ORDERED: FERR1TAB13 PO (10:26)
[2017-03-19] MEDS ORDERED: PRLSR20 PO (10:26)
[2017-03-19] MEDS ORDERED: PEGSOL13 (10:26)
[2017-03-19] MEDS ORDERED: HYDR2TAB48 PO (10:26)
[2017-03-19] MEDS ORDERED: LISI-725 PO (10:27)
[2017-03-19] MEDS ORDERED: DRGTP100 (10:27)
[2017-03-19] MEDS ORDERED: HYZ/50125 PO (10:27)
== END 2016-08-28 13:31 | disposition home or self-care (01) ==
LOC: C.EDB 10:31
DX: E86.0 Dehydration (principal); I95.1 Orthostatic hypotension; E11.9 Type 2 diabetes mellitus without complications; I10 Essential (primary) hypertension; Z79.899 Other long term (current) drug therapy; Z79.82 Long term (current) use of aspirin; Z79.4 Long term (current) use of insulin; Z85.118 Personal history of other malignant neoplasm of bronchus and lung; Z87.891 Personal history of nicotine dependence

== ENCOUNTER 2016-09-05 11:27 | Inpatient (IN) | payer OTHER ==
[~2016-09-05] VITALS: Ht 177.8 cm; Wt 91.5 kg
[2016-09-05 12:52] LABS: BUN/CREATININE RATIO 22.2 (10-20); CALCIUM 9.2 mg/dl (8.5-10.1); CREATININE 1.3 mg/dl (0.60-1.40); MAGNESIUM 1.4 mg/dl (1.8-2.4); POTASSIUM 3.8 mmol/L (3.5-5.1)
[2016-09-05 13:01] LABS: THYROID STIMULATING HORMONE 0.732 uIu/ml (0.300-4.500)
[2016-09-05] MEDS ORDERED: MAGNESIUM SULFATE 1GM / D5W 1 GM BAG IV STA (13:04)
[2016-09-05] MEDS ORDERED: ONDANSETRON INJ 2 MG/ML 2 ML VIAL IV STA (13:04)
[2016-09-05] MEDS ORDERED: SODIUM CHLORIDE 0.9% 1000ML 1,000 ML IV STA (13:04)
[2016-09-05 13:16] LABS: MEAN CELL VOLUME 81.1 fL (80-100); MEAN CORPUSCULAR HEMOGLOBIN 29.1 pg (25-34); MEAN CORPUSCULAR HGB CONC 35.9 g/dl (32-36); MEAN PLATELET VOLUME 9.3 fL (7.4-10.4); PLATELET COUNT 167 K/uL (130-400); RED BLOOD COUNT 3.33 M/uL (4.7-6.1); WHITE BLOOD COUNT 0.89 K/uL (4.8-10.8)
[2016-09-05 13:17] LABS: BASO % 2.2 %; BASO ABS # 0.02 K/uL (0-0.2); COMPLETE YES; DOHLE BODIES 2+; EOS % 5.6 %; IG% 1.1 %; LYMPH % 41.6 %; LYMPH ABS # 0.37 K/uL (1.2-3.4); MONO % 6.7 %; NEUT % 42.8 %; PLT ESTIMATE NORMAL; TOXIC GRANULATION 3+; VACUOLIZATION 1+
--- NOTE | 2016-09-05 13:38 | DIAGNOSTIC IMAGING REPORT ---
CHEST 2 VIEWS ROUTINE CLINICAL HISTORY: Weakness, chills. COMPARISON STUDY: 08/23/2016 FINDINGS: The heart is normal in size. Postsurgical changes are present within the left hemithorax with left-sided volume loss. There is left perihilar and upper lung zone scarring. The right lung appears clear. A small amount of left pleural fluid is again suspected. IMPRESSION: Postsurgical change. No acute findings. Electronically signed by: Bruce Salamanca M.D. 09/05/2016 1:36 PM Dictated Date/Time: 09/05/2016 1:35 PM
[2016-09-05] MEDS ORDERED: APRE125C (14:43)
[2016-09-05] MEDS ORDERED: DEXTROSE 50% 50 ML SYR IV PRN (14:45)
[2016-09-05] MEDS ORDERED: ALUMINUM/MAGNESIUM/SIMETH (MAALOX MAX) 30 ML UDC PO PRN (14:45)
[2016-09-05] MEDS ORDERED: GLUCOSE 10 TABS/TUBE PO PRN (14:45)
[2016-09-05] MEDS ORDERED: POLYETHYLENE (MIRALAX) 17 GM PACK PO PRN (14:45)
[2016-09-05] MEDS ORDERED: GLUCOSE 40% GEL 15 GM TUBE PO PRN (14:45)
[2016-09-05] MEDS ORDERED: GLUCAGON FOR INJ 1 MG VIAL SQ PRN (14:45)
[2016-09-05] MEDS ORDERED: MAGNESIUM HYDROXIDE SUSP 30 ML UDC PO PRN (14:45)
[2016-09-05 14:50] VITALS: O2SAT 97; BMI 26.1
[2016-09-05] MEDS ORDERED: PHARMACY GLYCEMIC MGMT CONSULT PRN (14:51)
--- NOTE | 2016-09-05 15:06 | History and Physical ---
History & Physical Date & Time of Service: September 05, 2016 at 14:41 Chief Complaint: Vomiting, Lethargic - Dx: Diabetes Type 2 Primary Care Physician: Bran Burgess M.D. History of Present Illness Source: patient, family, clinic records, hospital records Patient seen and examined. 51 year old male with PMHx of Lung CA undergoing chemo, IDDM, gastroparesis, chronic pain presents to the ED complaining of nausea and vomiting x 5 days. Patient reports that he last had chemo on 08/30. He states since then he has had been vomiting - too many episodes to count. He reports he took his home antiemetics including emend, Zofran, Phenergan without relief. He reports he feels generally weak and fatigued. He has not been able to keep anything down. He reports subjective fevers. He denies URI symptoms, chest pain, SOB, diarrhea, hematemesis, dysuria, calf pain and edema. He reports his last BM was this morning. He states his blood sugar has been high since he started vomiting. In the ED patient is very orthostatic, WBC count is 0.89, ANC is 0.38. Mg is 1.4. He received IVFs, Zofran and magnesium. He is resting comfortably. He will be admitted for further workup and treatment. Past Medical/Surgical History Medical Problems: (1) Diabetes mellitus, type II Status: Chronic (2) Diabetic polyneuropathy Status: Chronic (3) Gastroparesis Permanent Comment: s/p gastric stimulator Status: Chronic (4) HTN (hypertension) Status: Chronic (5) Lung cancer Permanent Comment: dx 01/2016; s/p L side lobectomy; currently undergoing chemo Status: Chronic Surgical Problems: (1) H/O colonoscopy Permanent Comment: 04/22/2013- Mildly congested and erythematous mucosa in the ascending colon. One 1 mm polyp in the ascending colon resected. One benign appearing 1 mm polyp in the rectum resected. Internal hemorrhoids; Dr. Demarco Status: Chronic (2) H/O esophagogastroduodenoscopy Permanent Comment: 01/26/2015- [place] Grade B reflux esophagitis, gastritis; Dr. Major Status: Chronic (3) History of cholecystectomy Status: Resolved (4) History of tonsillectomy and adenoidectomy Status: Resolved (5) Hx of total knee arthroplasty Status: Resolved (6) S/P lobectomy of lung Permanent Comment: La carrera @ [facility] [place] Lo 05/25/16 Status: Resolved Family History No pertinent family history Social History Smoking Status: Former Smoker Drug Use: none Marital Status: Housing status: lives with significant other Multi-Drug Resistant Organisms History of MDRO: No Allergies Coded Allergies: BEE STING (Verified Allergy, Mild, SWELLING AT SITE, SOB, 09/05/16) Penicillins (Verified Allergy, Unknown, "SINCE ", 09/05/16) Home Medications Scheduled Amlodipine (Norvasc), 10 MG PO DAILY Aspirin (Aspirin Ec), 81 MG PO QAM Fentanyl (Duragesic), 100 MCG TD CQ48HR Gabapentin (Neurontin), 600 MG PO TID Insulin Glargine (Lantus), 25 UNITS SC QPM Insulin Human Lispro (Humalog), 1 DOSE SC UD Magnesium Chloride (Slow-Mag Tab), 64 MG PO BID Metoprolol Tartrate (Lopressor) (Lopressor), 25 MG PO BID Multiple Vitamin (Multivitamins), 1 CAP PO QAM Scheduled PRN Acetaminophen (Tylenol), 1,000 MG PO TID PRN for Pain Dexamethasone (Decadron), 8 MG PO UD PRN for Chemo Day Of/Day After Epinephrine (Epipen), 0.3 MG IM UD PRN for ALLERGIC REACTION Hydromorphone Hcl (Dilaudid), 8 MG PO Q8 PRN for Pain Metoclopramide Hcl (Reglan), 10 MG PO ACHS PRN for Nausea Ondansetron (Ondansetron HCl), 8 MG PO Q8 PRN for Nausea Promethazine Hcl (Phenergan), 25 MG PO Q4H PRN for Nausea or Vomiting Tapentadol Hcl (Nucynta), 150 MG PO Q6H PRN for Pain Miscellaneous Medications Aprepitant (Emend), Unknown Dose Review of Systems Constitutional: + fatigue, + weakness, No chills, No fever Eyes: No worsening of vision ENT: No nasal symptoms Respiratory: No cough, No shortness of breath Cardiovascular: No chest pain, No edema, No palpitations Abdomen: + nausea, + vomiting, No GI bleeding, No constipation, No diarrhea, No pain Musculoskeletal: No calf pain, No swelling Genitourinary - Male: No dysuria Neurologic: No numbness/tingling, No vertigo Psychiatric: No anxiety Endocrine: + fatigue, No excessive thirst Hematologic / Lymphatic: No abnormal bleeding/bruising, No clotting problems Integumentary: No itch, No rash Allergic / Immunologic: No environmental allergies Physical Exam Vital Signs Date Time Temp Pulse Resp B/P Pulse Ox O2 Delivery O2 Flow Rate FiO2 09/05/16 13:37 189/117 97 Room Air 150/94 94/66 09/05/16 13:14 103 09/05/16 11:30 37.0 106 20 163/89 99 Room Air General Appearance: + pertinent finding (Ill appearing 51 year old male lying in bed in NAD with family at bedside ) Head: normocephalic, atraumatic Eyes: PERRL, EOMI, sclerae normal ENT: hearing grossly normal, pharynx normal Neck: supple, no JVD Respiratory/Chest: chest non-tender, lungs clear, normal breath sounds, no respiratory distress, no accessory muscle use Cardiovascular: no edema, no gallop, no JVD, no murmur, normal peripheral pulses, + tachycardia (100s, regular ) Abdomen/GI: normal bowel sounds, non tender, soft Back: normal inspection, no muscle spasm Extremities/Musculoskelatal: no calf tenderness, normal capillary refill, no pedal edema Neurologic/Psych: alert, oriented x 3, + pertinent finding (nonfocal ) Skin: normal color, warm/dry, no rash Lymphatic: no adenopathy Diagnostics Laboratory Results Results Past 24 Hours Test 09/05/16 12:18 Range/Units White Blood Count 0.89 4.8-10.8 K/uL Red Blood Count 3.33 4.7-6.1 M/uL Hemoglobin 9.7 14.0-18.0 g/dL Hematocrit 27.0 42-52 % Mean Corpuscular Volume 81.1 80-100 fL Mean Corpuscular Hemoglobin 29.1 25-34 pg Mean Corpuscular Hemoglobin Concent 35.9 32-36 g/dl Platelet Count 167 130-400 K/uL Mean Platelet Volume 9.3 7.4-10.4 fL Neutrophils (%) (Auto) 42.8 % Lymphocytes (%) (Auto) 41.6 % Monocytes (%) (Auto) 6.7 % Eosinophils (%) (Auto) 5.6 % Basophils (%) (Auto) 2.2 % Neutrophils # (Auto) 0.38 1.4-6.5 K/uL Lymphocytes # (Auto) 0.37 1.2-3.4 K/uL Monocytes # (Auto) 0.06 0.11-0.59 K/uL Eosinophils # (Auto) 0.05 0-0.5 K/uL Basophils # (Auto) 0.02 0-0.2 K/uL RDW Standard Deviation 46.2 36.4-46.3 fL RDW Coefficient of Variation 15.6 11.5-14.5 % Immature Granulocyte % (Auto) 1.1 % Immature Granulocyte # (Auto) 0.01 0.00-0.02 K/uL Toxic Granulation 3+ Toxic Vacuolation 1+ Dohle Bodies 2+ Platelet Estimate NORMAL Sodium Level 136 136-145 mmol/L Potassium Level 3.8 3.5-5.1 mmol/L Chloride Level 96 98-107 mmol/L Carbon Dioxide Level 29 21-32 mmol/L Anion Gap 11.0 3-11 mmol/L Blood Urea Nitrogen 29 7-18 mg/dl Creatinine 1.30 0.60-1.40 mg/dl Est Creatinine Clear Calc Drug Dose 65.0 ml/min Estimated GFR () 73.2 Estimated GFR (Non- 63.2 BUN/Creatinine Ratio 22.2 10-20 Random Glucose 299 70-99 mg/dl Calcium Level 9.2 8.5-10.1 mg/dl Magnesium Level 1.4 1.8-2.4 mg/dl Total Bilirubin 0.8 0.2-1 mg/dl Direct Bilirubin 0.2 0-0.2 mg/dl Aspartate Amino Transf (AST/SGOT) 18 15-37 U/L Alanine Aminotransferase (ALT/SGPT) 21 12-78 U/L Alkaline Phosphatase 101 45-117 U/L Total Protein 8.3 6.4-8.2 gm/dl Albumin 3.6 3.4-5.0 gm/dl Thyroid Stimulating Hormone (TSH) 0.732 0.300-4.500 uIu/ml Free Thyroxine 1.44 0.80-1.60 ng/dl Microbiology Results 09/05/16 Blood Culture, Received Pending 09/05/16 Blood Culture, Received Pending Diagnostic Radiology CXR Per radiologist read: IMPRESSION: Postsurgical change. No acute findings. EKG Sinus Tachycardia 102 BPM QTc 477 Impression Assessment and Plan 51 year old male undergoing chemotherapy presents to the ED complaining of vomiting x 5 days INTRACTABLE CHEMO INDUCED NAUSEA/VOMITING -Admit to med/surg -IVF hydration -Zofran, Phenergan prn -npo except meds -GI consult for further management - has been getting emend the day of chemo and for two days following -CBC, PRP, Mg in AM NEUTROPENIA/LEUKOPENIA -ANC 0.38, WBC count 0.89 -Recent chemo on 08/30 -No documented fevers/chills -CXR without signs of pneumonia -Blood cultures, UA pending -No indication for Abx at this time -Neutropenic precautions -Heme/onc consult placed - may need Neupogen HYPOMAGNESEMIA -Secondary to vomiting -replace follow daily ORTHOSTATIC HYPOTENSION -Secondary to dehydration in the setting of nausea/vomiting -IVF hydration -hold BP meds -fall precautions LUNG CA -ADENOCARCINOMA -Follows with Dr. Haynes -Received chemo on 08/30 -Heme/onc consult placed HTN -BP meds on hold for orthostatic hypotension -monitor ANEMIA -Hgb 9.7 -no signs of bleeding -follow H&H IDDM -with hyperglycemia -Not well controlled at baseline recent A1c 10.4 -BSG 299 -SSI coverage -Decrease lantus to 12Units HS while npo -pharmacy consulted for glycemic control CHRONIC PAIN -continue Fentanyl patch, Dilaudid, Nucynta -bowel regimen DVT PROPHYLAXIS: Sq Lovenox CODE STATUS:FULL CODE DISPO:In my clinical judgment this beneficiary meets acute admission criteria, established by [facility], that includes being hospitalized through two midnights. Patient seen in collaboration with Dr. Barfield ADDENDUM: This is a 51 year old male with PMH of non-small cell lung CA of the left upper lung currently undergoing chemotherapy, uncontrolled, insulin-dependent DM2, presents with nausea/vomiting after chemotherapy on 08/30 - he has had multiple nausea/vomiting episodes secondary to chemotherapy; was told to take Emend 125mg on the day of chemotherapy and 80mg on post-chemo day 1 and 2. He was doing okay during his primary care visit on September 03; but presented today with significant nausea/vomiting. No chest pain/shortness of breath, symptomatic fevers at home, but none recorded. VITALS: Last Vital Signs Documentation Date Time Temp Pulse Resp B/P Pulse Ox O2 Delivery O2 Flow Rate FiO2 09/05/16 14:50 97 Room Air 09/05/16 13:37 189/117 150/94 94/66 09/05/16 13:14 103 09/05/16 11:30 37.0 20 GEN: +[id number] distress secondary to nausea/vomiting CVS: +tachycardic, +S1, S2 LUNGS: CTA b/l, no wheezing ABD: mild tenderness diffusely, +BS Chemotherapy induced Nausea/Vomiting has responded in the past to Emend he used this on 08/31 and 09/01, but nausea/vomiting worsened today plan is to rehydrate with IVFs Zofran and Phenergan as needed for nausea GI consultation - may need additional IV Emend? Chemotherapy induced Neutropenia patient presented with leukopenia/neutropenia currently no signs of infection noted no fevers recorded though there are symptomatic fevers/chills blood cultures pending neutropenic precautions Hem/onc consult for possible Neupogen Uncontrolled DM2 Ha1c > 10% on 08/06/16 will give Lantus 15 units and a sliding scale pharmacy glycemic control consultation placed VTE Prophylaxis VTE Risk Assessment Done? Y/N: Yes Risk Level: Moderate
--- NOTE | 2016-09-05 15:07 | Pharmacy Progress Note ---
Glycemic Control Intl Consult Date of Service September 05, 2016. Scope Glycemic Pharmacist consulted by Marlena Chahal PA-C on 09/05/16 for glycemic control and to write orders per [facility] inpatient glycemic control protocol Objective Weight (Kilograms): 78.000 Accuchecks BSG (last 24hrs): Test 09/05/16 12:18 Random Glucose 299 mg/dl (70-99) Laboratory Data (last 24hrs) Test 09/05/16 12:18 Anion Gap 11.0 mmol/L BUN/Creatinine Ratio 22.2 Blood Urea Nitrogen 29 mg/dl Creatinine 1.30 mg/dl Potassium Level 3.8 mmol/L Sodium Level 136 mmol/L White Blood Count 0.89 K/uL Red Blood Count 3.33 M/uL Hemoglobin 9.7 g/dL Hematocrit 27.0 % Mean Corpuscular Volume 81.1 fL Mean Corpuscular Hemoglobin 29.1 pg Mean Corpuscular Hemoglobin Concent 35.9 g/dl Platelet Count 167 K/uL Mean Platelet Volume 9.3 fL Neutrophils (%) (Auto) 42.8 % Lymphocytes (%) (Auto) 41.6 % Monocytes (%) (Auto) 6.7 % Eosinophils (%) (Auto) 5.6 % Basophils (%) (Auto) 2.2 % Neutrophils # (Auto) 0.38 K/uL Lymphocytes # (Auto) 0.37 K/uL Monocytes # (Auto) 0.06 K/uL Eosinophils # (Auto) 0.05 K/uL Basophils # (Auto) 0.02 K/uL HbA1c Item Value Date Time Hemoglobin A1c 10.4 % H 08/06/16 0648 Recent Pertinent Medications Outpatient Anti-diabetic Regimen: * Lantus 25 u HS * Humalog per scale; CF = 10 mg/dL/unit Risk Factors for Insulin Resistance: * IVF * Diet Assessment & Plan ASSESSMENT: * 51 yo T2D M admitted with N/V, known to the glycemic service from most recent admission earlier this month * Random BSG in ED = 299 mg/dL * Pt currently NPO, no steroids ordered * Plan will be to initiate a reduced dose of Lantus and wt-based Novolog * A1c from last admission current, reflects poor glycemic control as outpatient * Likely due to PO dexamethasone around chemotherapy + other factors * ADA & AACE recommend a goal blood sugar range 140-180 mg/dl for the majority of critically ill & non-critically ill patients. However, more stringent targets may be selected in individual cases. Tighten goal to 110-150 mg/dL as carb ratio won't be useful till diet advanced. PLAN FOR INPATIENT GLYCEMIC CONTROL: * Basal insulin with LANTUS 15 units SQ HS, first dose with dinner due to elevated BSGs * Correctional Insulin with NOVOLOG per scale ACHS + 0200 * Goal Range: Low 110 mg/dL - High 150 mg/dL * Correction Factor: 25 mg/dL/unit * Nutritional / Prandial insulin per carb ratio of 1 unit per 9 grams CHO consumed * A1c added to D/C instructions * Please note that the plan above was derived based on current level of insulin resistance and hospital stress. These recommendations are appropriate for inpatient admission only. Plan of care upon discharge will need to be reassessed to avoid potential outpatient hypo/hyperglycemia. Thank you.
[2016-09-05] MEDS ORDERED: PROMETHAZINE HCL INJ 25 MG/ML 1 ML VIAL ONE (15:44)
--- NOTE | 2016-09-05 15:44 | EMERGENCY ROOM VISIT NOTE ---
History Report prepared by Nedra: Sudhakar Goel Under the Supervision of: Dr. Fredy Bass M.D. First contact with patient: 11:48 Chief Complaint: VOMITING Stated Complaint: VOMITING, LETHARGIC - DX: DIABETES TYPE 2 History of Present Illness The patient is a 51 year old male who presents to the Emergency Room with complaints of recurrent vomiting for the past five days. The patient has been receiving chemotherapy, with his last treatment being five days ago. He has been vomiting since then and has also been feeling generally weak. The patient states that he is feeling lethargic. The patient's father is unsure if he has been febrile. The patient has pain throughout his body, including burning in his abdomen. The patient has lung cancer, and has had a left lobectomy. The patient has a Fentanyl patch for pain. The patient's father states that the patient had a "pacemaker placed in his abdomen" four months ago. Source of History: patient, parent Onset: five days ago Position: other (GI) Quality: other (vomiting) Timing: other (recurrent) Associated Symptoms: + abdominal pain, + weakness Review of Systems See HPI for pertinent positives & negatives. A total of 10 systems reviewed and were otherwise negative. Past Medical & Surgical Medical Problems: (1) Confusion (2) Diabetes mellitus, type II (3) Diabetic polyneuropathy (4) Gastroparesis (5) HTN (hypertension) (6) Lung cancer (7) Nausea and vomiting (8) Neutropenia (9) Orthostatic hypotension Surgical Problems: (1) H/O colonoscopy (2) H/O esophagogastroduodenoscopy (3) History of cholecystectomy (4) History of tonsillectomy and adenoidectomy (5) Hx of total knee arthroplasty (6) S/P lobectomy of lung Family History No pertinent family history Social History Smoking Status: Never Smoker Drug Use: none Marital Status: Housing Status: lives with family Current/Historical Medications Scheduled Amlodipine (Norvasc), 10 MG PO DAILY Aspirin (Aspirin Ec), 81 MG PO QAM Fentanyl (Duragesic), 100 MCG TD [id number] Gabapentin (Neurontin), 600 MG PO TID Insulin Glargine (Lantus), 25 UNITS SC QPM Insulin Human Lispro (Humalog), 1 DOSE SC UD Magnesium Chloride (Slow-Mag Tab), 64 MG PO BID Metoprolol Tartrate (Lopressor) (Lopressor), 25 MG PO BID Multiple Vitamin (Multivitamins), 1 CAP PO QAM Scheduled PRN Acetaminophen (Tylenol), 1,000 MG PO TID PRN for Pain Dexamethasone (Decadron), 8 MG PO UD PRN for Chemo Day Of/Day After Epinephrine (Epipen), 0.3 MG IM UD PRN for ALLERGIC REACTION Hydromorphone Hcl (Dilaudid), 8 MG PO Q8 PRN for Pain Metoclopramide Hcl (Reglan), 10 MG PO ACHS PRN for Nausea Ondansetron (Ondansetron HCl), 8 MG PO Q8 PRN for Nausea Promethazine Hcl (Phenergan), 25 MG PO Q4H PRN for Nausea or Vomiting Tapentadol Hcl (Nucynta), 150 MG PO Q6H PRN for Pain Miscellaneous Medications Aprepitant (Emend), Unknown Dose Allergies Coded Allergies: BEE STING (Verified Allergy, Mild, SWELLING AT SITE, SOB, 09/05/16) Penicillins (Verified Allergy, Unknown, "SINCE ", 09/05/16) Physical Exam Vital Signs Date Time Temp Pulse Resp B/P Pulse Ox O2 Delivery O2 Flow Rate FiO2 09/05/16 14:50 97 Room Air 09/05/16 13:37 189/117 97 Room Air 150/94 94/66 09/05/16 13:14 103 09/05/16 11:30 37.0 106 20 163/89 99 Room Air Physical Exam Constitutional: Vital signs reviewed. Eyes: Pupils are equal round reactive to light. Conjunctiva are noninjected. ENT: Pharynx is clear without erythema or exudate. Mucous membranes are dry. Neck supple without meningeal signs. Respiratory: Clear to auscultation bilaterally. Breath sounds are equal bilaterally. Cardiovascular: Regular rate and rhythm. No rubs or gallops. GI: Mild diffuse abdominal tenderness, no guarding. Bowel sounds are present. Musculoskeletal: No peripheral edema. No lower extremity tenderness. Integumentary: No cyanosis. Neurological: The patient is awake and alert. No focal deficits. Psychiatric: Normal affect. Medical Decision & Procedures ER Provider Diagnostic Interpretation: X-ray results as stated below per interpretation by me and the radiologist: CHEST 2 VIEWS ROUTINE CLINICAL HISTORY: Weakness, chills. COMPARISON STUDY: 08/23/2016 FINDINGS: The heart is normal in size. Postsurgical changes are present within the left hemithorax with left-sided volume loss. There is left perihilar and upper lung zone scarring. The right lung appears clear. A small amount of left pleural fluid is again suspected. IMPRESSION: Postsurgical change. No acute findings. Electronically signed by: Bruce Salamanca M.D. 09/05/2016 1:36 PM Dictated Date/Time: 09/05/2016 1:35 PM Laboratory Results 09/05/16 12:18 Red Blood Count 3.33, Mean Corpuscular Volume 81.1, Mean Corpuscular Hemoglobin 29.1, Mean Corpuscular Hemoglobin Concent 35.9, Mean Platelet Volume 9.3, Neutrophils (%) (Auto) 42.8, Lymphocytes (%) (Auto) 41.6, Monocytes (%) (Auto) 6.7, Eosinophils (%) (Auto) 5.6, Basophils (%) (Auto) 2.2, Neutrophils # (Auto) 0.38, Lymphocytes # (Auto) 0.37, Monocytes # (Auto) 0.06, Eosinophils # (Auto) 0.05, Basophils # (Auto) 0.02 09/05/16 12:18 Test 09/05/16 12:18 White Blood Count 0.89 K/uL (4.8-10.8) Red Blood Count 3.33 M/uL (4.7-6.1) Hemoglobin 9.7 g/dL (14.0-18.0) Hematocrit 27.0 % (42-52) Mean Corpuscular Volume 81.1 fL (80-100) Mean Corpuscular Hemoglobin 29.1 pg (25-34) Mean Corpuscular Hemoglobin Concent 35.9 g/dl (32-36) Platelet Count 167 K/uL (130-400) Mean Platelet Volume 9.3 fL (7.4-10.4) Neutrophils (%) (Auto) 42.8 % Lymphocytes (%) (Auto) 41.6 % Monocytes (%) (Auto) 6.7 % Eosinophils (%) (Auto) 5.6 % Basophils (%) (Auto) 2.2 % Neutrophils # (Auto) 0.38 K/uL (1.4-6.5) Lymphocytes # (Auto) 0.37 K/uL (1.2-3.4) Monocytes # (Auto) 0.06 K/uL (0.11-0.59) Eosinophils # (Auto) 0.05 K/uL (0-0.5) Basophils # (Auto) 0.02 K/uL (0-0.2) RDW Standard Deviation 46.2 fL (36.4-46.3) RDW Coefficient of Variation 15.6 % (11.5-14.5) Immature Granulocyte % (Auto) 1.1 % Immature Granulocyte # (Auto) 0.01 K/uL (0.00-0.02) Toxic Granulation 3+ Toxic Vacuolation 1+ Dohle Bodies 2+ Platelet Estimate NORMAL Anion Gap 11.0 mmol/L (3-11) Est Creatinine Clear Calc Drug Dose 65.0 ml/min Estimated GFR () 73.2 Estimated GFR (Non- 63.2 BUN/Creatinine Ratio 22.2 (10-20) Calcium Level 9.2 mg/dl (8.5-10.1) Magnesium Level 1.4 mg/dl (1.8-2.4) Total Bilirubin 0.8 mg/dl (0.2-1) Direct Bilirubin 0.2 mg/dl (0-0.2) Aspartate Amino Transf (AST/SGOT) 18 U/L (15-37) Alanine Aminotransferase (ALT/SGPT) 21 U/L (12-78) Alkaline Phosphatase 101 U/L (45-117) Total Protein 8.3 gm/dl (6.4-8.2) Albumin 3.6 gm/dl (3.4-5.0) Thyroid Stimulating Hormone (TSH) 0.732 uIu/ml (0.300-4.500) Free Thyroxine 1.44 ng/dl (0.80-1.60) Laboratory results as reviewed by me. Medications Administered Medications (Trade) Dose Ordered Sig/Cal Route Start Time Stop Time Status Last Admin Dose Admin Ondansetron HCl 4 mg 4 mg NOW STAT IV 09/05/16 13:04 09/05/16 13:05 DC 09/05/16 13:42 4 MG Sodium Chloride (Nss 1000ml) 1,000 ml @ 999 mls/hr Q1H1M STAT IV 09/05/16 13:04 09/05/16 14:04 DC 09/05/16 13:42 999 MLS/HR Magnesium Sulfate (Magnesium Sulfate) 2 gm NOW STAT IV 09/05/16 13:04 09/05/16 13:05 DC 09/05/16 13:42 2 GM ECG Indication: weakness Rate (beats per minute): 102 Rhythm: sinus tachycardia Findings: no acute ischemic change, no ectopy ED Course 1155: The patient was evaluated in room B6. A complete history and physical exam was performed. 1304: Magnesium Sulfate 2 mg IV, NSS 1000 ml @ 999 mls/hr, Zofran 4 mg IV. 1358: Discussed the test results with him. 1402: Discussed the case with Marlena Chahal PA-C, [facility] Hospitalist. The patient will be evaluated. Medical Decision This is a 51-year-old male who presents with vomiting and weakness after chemotherapy. Differential diagnosis includes dehydration, gastritis, infection , electrolyte abnormality, pancytopenia. I did perform a limited focused review of portions of the patient's old chart on the electronic medical record. The patient was here on August 28 for low blood pressure. He was treated with normal saline and diagnosed with dehydration. He had a hemoglobin of 8.5 and a creatinine of 2.1. The patient was admitted on August 25 for confusion. He had a negative Head CT and was discharged the next day when his confusion resolved. He was also admitted August 15 for pain from his chronic neuropathy and vomiting. I did evaluate the patient as noted above. He is presenting with persistent vomiting since his chemotherapy with generalized weakness. He has been taking antibiotics at home without any success. He feels extremely weak and lethargic. He has had chills at home but no recorded fevers. IV access was established. The patient was placed on a continuous campus monitor. I did order and personally review the patient's 12-lead EKG and chest x-ray as described above. I did order and review the patient's blood work as noted in the electronic medical record. The patient is neutropenic, anemic and has hypomagnesemia. I did treat patient with Zofran IV. He was also given normal saline IV and 2 g of magnesium IV. Neutropenic precautions were observed. I did discuss the test results with the patient and his family. I did discuss the case with the hospitalist and briefcase sewer. Consults Time Called: [id number] Consulting Physician: Marlena Chahal PA-C, [facility] Hospitalist. Returned Call: [phone] The patient will be evaluated. Impression Primary Impression: Neutropenia Additional Impressions: Orthostatic hypotension Dehydration Hypomagnesemia Intractable vomiting Anemia Scribe Attestation The scribe's documentation has been prepared under my direct and personally reviewed by me in its entirety. I confirm that the note above accurately reflects all work, treatment, procedures, and medical decision making performed by me. Departure Information Dispostion Being Evaluated By Hospitalist Referrals Bran Burgess M.D. (PCP) Patient Instructions My [facility] Problem Qualifiers Primary Impression: Neutropenia Neutropenia type: secondary to cancer chemotherapy Qualified Codes: D70.1 - Agranulocytosis secondary to cancer chemotherapy Additional Impressions: Intractable vomiting Vomiting type: unspecified Nausea presence: with nausea Qualified Codes: R11.2 - Nausea with vomiting, unspecified Anemia Anemia type: other cause
[2016-09-05] MEDS ORDERED: HydrALAZINE HCL 20 MG/ML VIAL IV. PRN (16:15)
[2016-09-05 16:35] VITALS: BP 190/94; PULSE 105; TEMP 37.5; O2SAT 97
[2016-09-05] MEDS: NSS + 20MEQ KCL 1000ML 1,000 ML IV SCH (17:25)
[2016-09-05] MEDS: INSULIN ASPART 100 UNITS/ML 3 ML PEN SC SCH ×2 (17:33→21:07)
[2016-09-05] MEDS: INSULIN GLARGINE SOLOSTAR 100 UNITS/ML 3 ML PEN SC SCH (17:34)
[2016-09-05 18:00] VITALS: BP 168/94; PULSE 108
[2016-09-05] MEDS: ONDANSETRON INJ 2 MG/ML 2 ML VIAL IV PRN (19:37)
[2016-09-05] MEDS: MAGNESIUM CHLORIDE 64MG DELAYED REL TAB PO SCH (20:00)
[2016-09-05] MEDS: GABAPENTIN 300 MG CAP PO SCH (20:00)
[2016-09-05 20:25] VITALS: BP 187/94; PULSE 91; TEMP 37.5; O2SAT 97
[2016-09-05] MEDS: HYDROmorphone INJ 1 MG/ML SYR IV PRN (20:55)
[2016-09-05] MEDS ORDERED: FENTANYL 100 MCG/HR TDSY TD SCH (21:00)
[2016-09-05] MEDS: ENOXAPARIN 40 MG/0.4 ML SYR SQ SCH (21:00)
[2016-09-05 22:24] LABS: URINE APPEARANCE CLEAR (CLEAR); URINE BILIRUBIN NEG (NEG); URINE COLOR YELLOW; URINE NITRITE NEG (NEG); URINE SPECIFIC GRAVITY 1.025 (1.000-1.030); UROBILINOGEN NEG (NEG)
[2016-09-05 22:27] LABS: MANUAL MICROSCOPIC REQUIRED? NO; REVIEW REQ? NO
[2016-09-05] MEDS: PROMETHAZINE HCL INJ 12.5 MG in SODIUM CHLORIDE 0.9% 50ML 50 ML IV PRN (23:14)
[2016-09-05] MEDS: CHECK FENTANYL PATCH PLACEMENT SCH (23:32)
[2016-09-06] VITALS (10 sets, daily range): BP systolic 87–207; BP diastolic 55–112; PULSE 89–105; TEMP 36.2–37.2; O2SAT 95–100; BMI 24.8
[2016-09-06] MEDS: ONDANSETRON INJ 2 MG/ML 2 ML VIAL IV PRN ×3 (01:49→17:14)
[2016-09-06] MEDS: HYDROmorphone INJ 1 MG/ML SYR IV PRN ×5 (01:49→21:19)
[2016-09-06] MEDS: NSS + 20MEQ KCL 1000ML 1,000 ML IV SCH ×3 (01:51→17:16)
[2016-09-06] MEDS: ZOLPIDEM TARTRATE 5 MG TAB PO PRN ×2 (01:53→22:50)
[2016-09-06] MEDS ORDERED: INSULIN ASPART 100 UNITS/ML 3 ML PEN SC SCH (02:00)
[2016-09-06 06:21] LABS: BASO % 0.7 %; BASO ABS # 0.01 K/uL (0-0.2); COMPLETE YES; DOHLE BODIES 1+; EOS % 0.7 %; HEMATOCRIT 25.4 % (42-52); IG% 0.7 %; LYMPH % 48.6 %; MEAN CELL VOLUME 82.2 fL (80-100); MEAN CORPUSCULAR HEMOGLOBIN 27.8 pg (25-34); MEAN CORPUSCULAR HGB CONC 33.9 g/dl (32-36); MEAN PLATELET VOLUME 9.1 fL (7.4-10.4); MONO % 2.8 %; NEUT % 46.5 %; PLATELET COUNT 154 K/uL (130-400); RED BLOOD COUNT 3.09 M/uL (4.7-6.1); TOXIC GRANULATION 1+; WHITE BLOOD COUNT 1.44 K/uL (4.8-10.8)
[2016-09-06 06:23] LABS: BUN/CREATININE RATIO 24.9 (10-20); CALCIUM 8.5 mg/dl (8.5-10.1); CREATININE 1.2 mg/dl (0.60-1.40); MAGNESIUM 1.7 mg/dl (1.8-2.4); POTASSIUM 3.8 mmol/L (3.5-5.1)
[2016-09-06] MEDS: PROMETHAZINE HCL INJ 12.5 MG in SODIUM CHLORIDE 0.9% 50ML 50 ML IV PRN ×2 (07:39→19:18)
[2016-09-06] MEDS: CHECK FENTANYL PATCH PLACEMENT SCH ×2 (07:40→16:00)
[2016-09-06] MEDS: AMLODIPINE BESYLATE 5 MG TAB PO SCH (07:54)
[2016-09-06] MEDS: INSULIN ASPART 100 UNITS/ML 3 ML PEN SC SCH ×4 (07:56→21:22)
[2016-09-06] MEDS: ASPIRIN 81 MG ECTAB PO SCH (08:00)
[2016-09-06] MEDS: MAGNESIUM CHLORIDE 64MG DELAYED REL TAB PO SCH ×2 (08:00→19:59)
[2016-09-06] MEDS: GABAPENTIN 300 MG CAP PO SCH ×3 (08:00→19:20)
--- NOTE | 2016-09-06 09:39 | Pharmacy Progress Note ---
Glycemic Control: Progress Nt Date of Service September 06, 2016. Scope Glycemic Pharmacist consulted by Marlena Chahal PA-C on 09/05/16 for glycemic control and to write orders per [facility] inpatient glycemic control protocol. Objective Accuchecks BSG (last 24hrs): Test 09/05/16 12:18 09/05/16 16:47 09/05/16 20:43 09/06/16 01:57 Random Glucose 299 mg/dl (70-99) Bedside Glucose 320 mg/dl (70-99) 238 mg/dl (70-99) 216 mg/dl (70-99) Test 09/06/16 05:34 09/06/16 07:40 Random Glucose 212 mg/dl (70-99) Bedside Glucose 211 mg/dl (70-99) Laboratory Data (last 24hrs) Test 09/05/16 12:18 09/06/16 05:34 Anion Gap 11.0 mmol/L 6.0 mmol/L BUN/Creatinine Ratio 22.2 24.9 Blood Urea Nitrogen 29 mg/dl 30 mg/dl Creatinine 1.30 mg/dl 1.20 mg/dl Potassium Level 3.8 mmol/L 3.8 mmol/L Sodium Level 136 mmol/L 140 mmol/L White Blood Count 0.89 K/uL 1.44 K/uL Red Blood Count 3.33 M/uL 3.09 M/uL Hemoglobin 9.7 g/dL 8.6 g/dL Hematocrit 27.0 % 25.4 % Mean Corpuscular Volume 81.1 fL 82.2 fL Mean Corpuscular Hemoglobin 29.1 pg 27.8 pg Mean Corpuscular Hemoglobin Concent 35.9 g/dl 33.9 g/dl Platelet Count 167 K/uL 154 K/uL Mean Platelet Volume 9.3 fL 9.1 fL Neutrophils (%) (Auto) 42.8 % 46.5 % Lymphocytes (%) (Auto) 41.6 % 48.6 % Monocytes (%) (Auto) 6.7 % 2.8 % Eosinophils (%) (Auto) 5.6 % 0.7 % Basophils (%) (Auto) 2.2 % 0.7 % Neutrophils # (Auto) 0.38 K/uL 0.67 K/uL Lymphocytes # (Auto) 0.37 K/uL 0.70 K/uL Monocytes # (Auto) 0.06 K/uL 0.04 K/uL Eosinophils # (Auto) 0.05 K/uL 0.01 K/uL Basophils # (Auto) 0.02 K/uL 0.01 K/uL HbA1c: Item Value Date Time Hemoglobin A1c 10.4 % H 08/06/16 0648 Recent Pertinent Medications Outpatient Anti-diabetic Regimen: * Lantus 25 u HS * Humalog per scale; CF = 10 mg/dL/unit Risk Factors for Insulin Resistance: * IVF * Diet Assessment & Plan ASSESSMENT: * 51 yo T2D M admitted with N/V, known to the glycemic service from most recent admission earlier this month * Patient has received a total of 26 units of insulin since admission yesterday * Pt remains NPO, Fasting BSG 211 mg/dL * Of note, patient refuses all overnight checks * Plan will be to continue the same reduced basal dose as BSGs continue to trend down nicely towards goal * During last admission, he was eating a regular diet. He had an episode of hypoglycemia on home Lantus dosing-->Lantus was then reduced --> then in the end Lantus was titrated back to home regimen * It will be important to make adjustments as necessary based on this admission 's trends/dietary changes * ADA & AACE recommend a goal blood sugar range 140-180 mg/dl for the majority of critically ill & non-critically ill patients. However, more stringent targets may be selected in individual cases. Tighten goal to 110-150 mg/dL as carb ratio won't be useful till diet advanced. PLAN FOR INPATIENT GLYCEMIC CONTROL: * Continue Basal insulin with LANTUS 15 units SQ HS * Tighten Correctional Insulin with NOVOLOG per scale ACHS * Goal Range: Low 110 mg/dL - High 150 mg/dL * Correction Factor: 20mg/dL/unit * Nutritional / Prandial insulin per carb ratio of 1 unit per 7 grams CHO consumed * A1c added to D/C instructions * Please note that the plan above was derived based on current level of insulin resistance and hospital stress. These recommendations are appropriate for inpatient admission only. Plan of care upon discharge will need to be reassessed to avoid potential outpatient hypo/hyperglycemia. Thank you.
[2016-09-06] MEDS: TAPENTADOL HCL 50 MG TAB PO PRN ×2 (10:34→16:07)
[2016-09-06] MEDS: MAGNESIUM SULFATE 1GM / D5W 1 GM in PREMIXED IN D5W 100 ML IV SCH ×2 (11:09→13:45)
[2016-09-06] MEDS ORDERED: FOSAPREPITANT DIMEGLUMINE INJ 150 MG in SODIUM CHLORIDE 0.9% 150ML 145 ML IV ONE (11:30)
[2016-09-06] MEDS ORDERED: HydrALAZINE HCL 20 MG/ML VIAL IV. ONE ×2 (11:47→16:15)
[2016-09-06] MEDS ORDERED: HYDROmorphone INJ 1 MG/ML SYR IV PRN (11:48)
[2016-09-06] MEDS ORDERED: HydrALAZINE HCL 20 MG/ML VIAL IV. PRN ×2 (12:00→22:00)
--- NOTE | 2016-09-06 12:04 | Progress Note ---
Medicine Progress Note Date & Time of Visit: September 06, 2016 at 11:51. Subjective 51 year old male undergoing chemotherapy presents to the ED complaining of vomiting x 5 days -still feeling significantly nautious overnight -no vomiting per nurses -patient states that he has had chronic pain, with nausea and pain worse 5 days ago -he was out fishing with his granddaughters who are 6yo and were not ill themselves. -he states that evening when he returned he had significant nausea and pain -there was a alison period for symptoms on saturday when seen by PCP, but this started up soon after -he was able to eat but not able to keep anything down -he only used Reglan at home after Emend was finished (3 days of it taken), and didn't try other agents -He states this frequently happens to him and nausea can last for weeks. -denies cough, headache, chills or fever now, UTI symptoms and cannot localize the pain he is having to one spot. -denies diarrhea -was able to tolerate a few PO pills per nursing staff Objective Last 8 Hrs Date Time Temp Pulse Resp B/P Pulse Ox O2 Delivery O2 Flow Rate FiO2 09/06/16 11:31 37.2 96 16 207/109 95 Room Air 09/06/16 09:14 93 178/95 09/06/16 08:00 Room Air 09/06/16 07:55 36.7 96 20 175/102 100 Physical Exam: GEN: WNWD, appears uncomfortable and nautious, alert and appropriate-answers questions with eyes closed and laid back HEENT: NC/AT, normal sclerae, mucous membranes are moist CARDIO: reg rate, S1/2 heard without m/g/r LUNGS: CTA bilaterally, no crackles, rales or wheezes, good diaphragmatic excursion ABD: soft, non-tender except over old scar tissue on LLQ (chronically tender per patient), non-distended, no rebound or guarding, +BS EXTREMITY: no LE swelling or edema, extremities are warm and well-perfused NEURO: CN 2-12 grossly intact MUSC: limited exam as patient is uncomfortable, however, moves all extremities equally SKIN: warm and dry, red birthmark on L forearm. Laboratory Results: 09/06/16 05:34 Red Blood Count 3.09, Mean Corpuscular Volume 82.2, Mean Corpuscular Hemoglobin 27.8, Mean Corpuscular Hemoglobin Concent 33.9, Mean Platelet Volume 9.1, Neutrophils (%) (Auto) 46.5, Lymphocytes (%) (Auto) 48.6, Monocytes (%) (Auto) 2.8, Eosinophils (%) (Auto) 0.7, Basophils (%) (Auto) 0.7, Neutrophils # (Auto) 0.67, Lymphocytes # (Auto) 0.70, Monocytes # (Auto) 0.04, Eosinophils # (Auto) 0.01, Basophils # (Auto) 0.01 09/06/16 05:34 Test 09/05/16 12:18 09/05/16 21:55 09/06/16 05:34 09/06/16 11:27 Toxic Vacuolation 1+ Platelet Estimate NORMAL Total Bilirubin 0.8 mg/dl (0.2-1) Direct Bilirubin 0.2 mg/dl (0-0.2) Aspartate Amino Transf (AST/SGOT) 18 U/L (15-37) Alanine Aminotransferase (ALT/SGPT) 21 U/L (12-78) Alkaline Phosphatase 101 U/L (45-117) Total Protein 8.3 gm/dl (6.4-8.2) Albumin 3.6 gm/dl (3.4-5.0) Thyroid Stimulating Hormone (TSH) 0.732 uIu/ml (0.300-4.500) Free Thyroxine 1.44 ng/dl (0.80-1.60) Urine Color YELLOW Urine Appearance CLEAR (CLEAR) Urine pH 5.0 (4.5-7.5) Urine Specific [place] 1.025 (1.000-1.030) Urine Protein 2+ (NEG) Urine Glucose (UA) 3+ (NEG) Urine Ketones 1+ (NEG) Urine Occult Blood 1+ (NEG) Urine Nitrite NEG (NEG) Urine Bilirubin NEG (NEG) Urine Urobilinogen NEG (NEG) Urine Leukocyte Esterase NEG (NEG) Urine WBC (Auto) 1-5 /hpf (0-5) Urine RBC (Auto) 0-4 /hpf (0-4) Urine Hyaline Casts (Auto) 1-5 /lpf (0-5) Urine Epithelial Cells (Auto) 5-10 /lpf (0-5) Urine Bacteria (Auto) NEG (NEG) White Blood Count 1.44 K/uL (4.8-10.8) Red Blood Count 3.09 M/uL (4.7-6.1) Hemoglobin 8.6 g/dL (14.0-18.0) Hematocrit 25.4 % (42-52) Mean Corpuscular Volume 82.2 fL (80-100) Mean Corpuscular Hemoglobin 27.8 pg (25-34) Mean Corpuscular Hemoglobin Concent 33.9 g/dl (32-36) Platelet Count 154 K/uL (130-400) Mean Platelet Volume 9.1 fL (7.4-10.4) Neutrophils (%) (Auto) 46.5 % Lymphocytes (%) (Auto) 48.6 % Monocytes (%) (Auto) 2.8 % Eosinophils (%) (Auto) 0.7 % Basophils (%) (Auto) 0.7 % Neutrophils # (Auto) 0.67 K/uL (1.4-6.5) Lymphocytes # (Auto) 0.70 K/uL (1.2-3.4) Monocytes # (Auto) 0.04 K/uL (0.11-0.59) Eosinophils # (Auto) 0.01 K/uL (0-0.5) Basophils # (Auto) 0.01 K/uL (0-0.2) RDW Standard Deviation 46.4 fL (36.4-46.3) RDW Coefficient of Variation 15.7 % (11.5-14.5) Immature Granulocyte % (Auto) 0.7 % Immature Granulocyte # (Auto) 0.01 K/uL (0.00-0.02) Toxic Granulation 1+ Dohle Bodies 1+ Anion Gap 6.0 mmol/L (3-11) Est Creatinine Clear Calc Drug Dose 70.4 ml/min Estimated GFR () 80.7 Estimated GFR (Non- 69.6 BUN/Creatinine Ratio 24.9 (10-20) Calcium Level 8.5 mg/dl (8.5-10.1) Magnesium Level 1.7 mg/dl (1.8-2.4) Bedside Glucose 218 mg/dl (70-99) Date/Time Source Procedure Growth Status 09/05/16 12:57 Blood Blood Culture Pending Received Last 24 Hours Test 09/05/16 12:18 09/05/16 16:47 09/05/16 20:43 09/05/16 21:55 White Blood Count 0.89 K/uL Red Blood Count 3.33 M/uL Hemoglobin 9.7 g/dL Hematocrit 27.0 % Mean Corpuscular Volume 81.1 fL Mean Corpuscular Hemoglobin 29.1 pg Mean Corpuscular Hemoglobin Concent 35.9 g/dl Platelet Count 167 K/uL Mean Platelet Volume 9.3 fL Neutrophils (%) (Auto) 42.8 % Lymphocytes (%) (Auto) 41.6 % Monocytes (%) (Auto) 6.7 % Eosinophils (%) (Auto) 5.6 % Basophils (%) (Auto) 2.2 % Neutrophils # (Auto) 0.38 K/uL Lymphocytes # (Auto) 0.37 K/uL Monocytes # (Auto) 0.06 K/uL Eosinophils # (Auto) 0.05 K/uL Basophils # (Auto) 0.02 K/uL RDW Standard Deviation 46.2 fL RDW Coefficient of Variation 15.6 % Immature Granulocyte % (Auto) 1.1 % Immature Granulocyte # (Auto) 0.01 K/uL Toxic Granulation 3+ Toxic Vacuolation 1+ Dohle Bodies 2+ Platelet Estimate NORMAL Sodium Level 136 mmol/L Potassium Level 3.8 mmol/L Chloride Level 96 mmol/L Carbon Dioxide Level 29 mmol/L Anion Gap 11.0 mmol/L Blood Urea Nitrogen 29 mg/dl Creatinine 1.30 mg/dl Est Creatinine Clear Calc Drug Dose 65.0 ml/min Estimated GFR () 73.2 Estimated GFR (Non- 63.2 BUN/Creatinine Ratio 22.2 Random Glucose 299 mg/dl Calcium Level 9.2 mg/dl Magnesium Level 1.4 mg/dl Total Bilirubin 0.8 mg/dl Direct Bilirubin 0.2 mg/dl Aspartate Amino Transf (AST/SGOT) 18 U/L Alanine Aminotransferase (ALT/SGPT) 21 U/L Alkaline Phosphatase 101 U/L Total Protein 8.3 gm/dl Albumin 3.6 gm/dl Thyroid Stimulating Hormone (TSH) 0.732 uIu/ml Free Thyroxine 1.44 ng/dl Bedside Glucose 320 mg/dl 238 mg/dl Urine Color YELLOW Urine Appearance CLEAR Urine pH 5.0 Urine Specific [place] 1.025 Urine Protein 2+ Urine Glucose (UA) 3+ Urine Ketones 1+ Urine Occult Blood 1+ Urine Nitrite NEG Urine Bilirubin NEG Urine Urobilinogen NEG Urine Leukocyte Esterase NEG Urine WBC (Auto) 1-5 /hpf Urine RBC (Auto) 0-4 /hpf Urine Hyaline Casts (Auto) 1-5 /lpf Urine Epithelial Cells (Auto) 5-10 /lpf Urine Bacteria (Auto) NEG Test 09/06/16 01:57 09/06/16 05:34 09/06/16 07:40 09/06/16 11:27 Bedside Glucose 216 mg/dl 211 mg/dl 218 mg/dl White Blood Count 1.44 K/uL Red Blood Count 3.09 M/uL Hemoglobin 8.6 g/dL Hematocrit 25.4 % Mean Corpuscular Volume 82.2 fL Mean Corpuscular Hemoglobin 27.8 pg Mean Corpuscular Hemoglobin Concent 33.9 g/dl Platelet Count 154 K/uL Mean Platelet Volume 9.1 fL Neutrophils (%) (Auto) 46.5 % Lymphocytes (%) (Auto) 48.6 % Monocytes (%) (Auto) 2.8 % Eosinophils (%) (Auto) 0.7 % Basophils (%) (Auto) 0.7 % Neutrophils # (Auto) 0.67 K/uL Lymphocytes # (Auto) 0.70 K/uL Monocytes # (Auto) 0.04 K/uL Eosinophils # (Auto) 0.01 K/uL Basophils # (Auto) 0.01 K/uL RDW Standard Deviation 46.4 fL RDW Coefficient of Variation 15.7 % Immature Granulocyte % (Auto) 0.7 % Immature Granulocyte # (Auto) 0.01 K/uL Toxic Granulation 1+ Dohle Bodies 1+ Sodium Level 140 mmol/L Potassium Level 3.8 mmol/L Chloride Level 101 mmol/L Carbon Dioxide Level 33 mmol/L Anion Gap 6.0 mmol/L Blood Urea Nitrogen 30 mg/dl Creatinine 1.20 mg/dl Est Creatinine Clear Calc Drug Dose 70.4 ml/min Estimated GFR () 80.7 Estimated GFR (Non- 69.6 BUN/Creatinine Ratio 24.9 Random Glucose 212 mg/dl Calcium Level 8.5 mg/dl Magnesium Level 1.7 mg/dl Date/Time Source Procedure Growth Status 09/05/16 12:57 Blood Blood Culture Pending Received 09/05/16 12:18 Blood Blood Culture Pending Received Assessment & Plan 51 year old male undergoing chemotherapy presents to the ED complaining of vomiting x 5 days INTRACTABLE CHEMO INDUCED NAUSEA/VOMITING -continue IVF hydration -Zofran, Phenergan prn -Emend per GI team -npo except meds -[place]/tiffany christoph [place], advance diet as tolerated -CBC, PRP, Mg in AM -Onc consult-appreciate recs NEUTROPENIA/LEUKOPENIA -neutropenic precautions -Recent chemo on 08/30 -No documented fevers -CXR without signs of pneumona and denies cough or fevers at home -Blood cultures pending, no UTI symptoms and UA benign -No indication for Abx at this time -Heme/onc consult placed - may need GCSF? HYPOMAGNESEMIA -Secondary to vomiting -replace follow daily ORTHOSTATIC HYPOTENSION -Secondary to dehydration in the setting of nausea/vomiting -IVF hydration -fall precautions HYPERTENSION: elevated >200 systolic which is likely related to his discomfort and inability to keep PO meds down -attempted PO Norvasc today -giving Hydralazine 10 IV now and every 6 as needed for SBP>160 -continue efforts with antiemetics and pain meds LUNG CA -ADENOCARCINOMA -Follows with Dr. Haynes -Received chemo on 08/30 -Heme/onc consult placed -pain present "all over", started "15 years ago" worse since Sat (5 days ago) -increased IV dilaudid to q2hrs prn breakthrough -cont Fentanyl patch, Tapentadol IR PRN, Dilaudid PO PRN (taking both PO at home ) -cont bowel regimen ANEMIA -Hgb 8.6-slightly decreased from admission, multifactorial etiology likely related to chemo/ACD and dilutional effect with IVF ongoing -no signs of bleeding -follow H&H IDDM -with hyperglycemia -Not well controlled at baseline recent A1c 10.4 -SSI coverage/Lantus -pharmacy consulted for glycemic control DVT PROPHYLAXIS: Sq Lovenox CODE STATUS:FULL CODE [facility] Consultants: Heme/Onc, GI Current Inpatient Medications: Current Inpatient Medications Medications (Trade) Dose Ordered Sig/Cal Route Start Time Stop Time Status Last Admin Dose Admin Enoxaparin Sodium (Lovenox Inj) 40 mg Q24H SQ 09/05/16 21:00 10/05/16 20:59 Acetaminophen (Tylenol Tab) 650 mg Q4H PRN PO 09/05/16 14:45 10/05/16 14:44 Al Hydrox/Mg Hydrox/Simethicone (Maalox Max Susp) 15 ml Q4H PRN PO 09/05/16 14:45 10/05/16 14:44 Magnesium Hydroxide (Milk Of Magnesia Susp) 30 ml Q6H PRN PO 09/05/16 14:45 10/05/16 14:44 Polyethylene (Miralax Powder Packet) 17 gm DAILY PRN PO 09/05/16 14:45 10/05/16 14:44 Ondansetron HCl (Zofran Inj) 4 mg Q6H PRN IV 09/05/16 14:45 10/05/16 14:44 09/06/16 09:20 4 MG Zolpidem Tartrate 5 mg 5 mg HSZ PRN PO 09/05/16 14:45 10/05/16 14:44 09/06/16 01:53 5 MG Potassium Chloride/Sodium Chloride 1,000 ml @ 125 mls/hr Q8H IV 09/05/16 17:30 10/05/16 17:29 09/06/16 08:51 125 MLS/HR Promethazine HCl/ Sodium Chloride (Phenergan Inj/ Nss 50ml) 50.5 ml @ 204 mls/hr Q6H PRN IV 09/05/16 14:45 10/05/16 14:44 09/06/16 07:39 204 MLS/HR Insulin Glargine (Lantus Solostar Pen) 15 unit HS SC 09/05/16 18:00 10/05/16 17:59 09/05/16 17:34 15 UNIT Insulin Aspart (novoLOG ASPART) SLIDING SCALE If C... ACHS SC 09/05/16 16:00 10/05/16 15:59 09/06/16 07:56 3 UNITS Glucose (Glucose 40% Gel) 15-30 GRAMS 15 GRAMS... UD PRN PO 09/05/16 14:45 10/05/16 14:44 Glucose (Glucose Chew Tab) 4-8 Tablets 4 Tabl... UD PRN PO 09/05/16 14:45 10/05/16 14:44 Dextrose (Dextrose 50% 50ML Syringe) 25-50ML OF 50% DW IV FOR... UD PRN IV 09/05/16 14:45 10/05/16 14:44 Glucagon (Glucagon Inj) 1 mg UD PRN SQ 09/05/16 14:45 10/05/16 14:44 Miscellaneous Information (Consult Glycemic Management Pharmacy) 1 ea UD PRN N/A 09/05/16 14:51 10/05/16 14:50 Aspirin (Ecotrin Tab) 81 mg QAM PO 09/06/16 08:00 10/06/16 08:59 Fentanyl (Duragesic Patch) 100 mcg Q48H TD 09/05/16 21:00 09/19/16 20:59 09/05/16 21:00 100 MCG Gabapentin (Neurontin Cap) 600 mg TID PO 09/05/16 20:00 10/05/16 20:59 Hydromorphone HCl (Dilaudid Tab) 8 mg Q8H PRN PO 09/05/16 15:00 09/19/16 14:59 Magnesium Chloride (Slow-Mag Tab) 64 mg BID PO 09/05/16 20:00 10/05/16 20:59 Tapentadol (Nucynta Tab) 150 mg Q6H PRN PO 09/05/16 15:00 10/05/16 14:59 09/06/16 10:34 150 MG Amlodipine Besylate (Norvasc Tab) 10 mg DAILY PO 09/06/16 08:00 10/06/16 08:59 09/06/16 07:54 10 MG Hydralazine HCl (HydrALAZINE INJ) 5 mg Q6H PRN IV. 09/05/16 16:15 10/05/16 16:14 09/06/16 09:22 5 MG Miscellaneous (Fentanyl Patch Remove & Waste) 1 ea Q48H N/A 09/07/16 20:59 10/07/16 20:58 Miscellaneous Information 1 ea 1 ea QS N/A 09/06/16 00:00 10/06/16 00:00 09/06/16 07:40 1 EA Magnesium Sulfate 1 gm/Prmx 100 ml @ 100 mls/hr Q1H IV 09/06/16 10:00 09/06/16 11:59 09/06/16 11:09 100 MLS/HR Fosaprepitant/ Sodium Chloride (Emend Inj/Nss 150ml) 150 ml @ 300 mls/hr NOW ONCE IV 09/06/16 11:30 09/06/16 11:59 Hydralazine HCl (HydrALAZINE INJ) 10 mg Q6H PRN IV. 09/06/16 12:00 10/06/16 11:59 UNV Hydralazine HCl (HydrALAZINE INJ) 10 mg 1147 ONCE IV. 09/06/16 11:47 09/06/16 11:48 UNV Hydromorphone HCl (Dilaudid Inj) 0.5 mg Q2H PRN IV 09/06/16 11:48 09/20/16 11:47 UNV
--- NOTE | 2016-09-06 13:46 | DIAGNOSTIC IMAGING REPORT ---
KUB CLINICAL HISTORY: abd pain, nausea VOMITING COMPARISON STUDY: 08/15/2016 FINDINGS: There is a gastric stimulator/pacemaker. There are surgical clips within the right upper quadrant consistent with a prior cholecystectomy. There is no pathologic bowel dilatation. There are no calcification suspicious for renal calculi. IMPRESSION: No evidence of pathologic bowel dilatation. Electronically signed by: Bruce Salamanca M.D. 09/06/2016 1:44 PM Dictated Date/Time: 09/06/2016 1:43 PM
--- NOTE | 2016-09-06 14:33 | ONCOLOGY CONSULTATION ---
DATE OF CONSULTATION: 09/06/2016 DATE OF CONSULTATION: 09/06/2016. CONSULTATION WAS RECEIVED FROM: Marlena Chahal PA-C. REASON FOR CONSULTATION: Lung cancer, neutropenia, leukopenia. HISTORY OF PRESENT ILLNESS: I have been treating Mr. Hamilton with adjuvant chemotherapy for a previously resected lung cancer. He had been receiving Alimta and Platinol chemotherapy for 2 cycles. However, due to excessive nausea and emesis, I changed his chemotherapy for cycle #3 to Alimta and carboplatin. He also was given Emend to take prior to chemotherapy and for 2 days following chemotherapy in addition to his Zofran and Phenergan. Unfortunately, he has again been admitted to [facility] with protracted nausea and emesis. At the time of admission, his white blood count was 890 with 43% neutrophils. However, on September 06 the white count had improved to 1440 with 47% neutrophils. His current hemoglobin is 8.6 and a platelet count is 154,000. I should note that he did receive Neulasta following his last cycle of chemotherapy. I would anticipate his white count to continue to improve. He is no longer neutropenic. Blood cultures are currently pending. He has been afebrile throughout his admission. Assuming his total white blood count continues to improve and his blood cultures return negative he does not need any further intervention. I would just recommend that a daily CBCD be checked to confirm that his white count recovers. I would suggest transfusion with 2 units of packed red blood cells while he is hospitalized. When I last met with him in my office prior to cycle #3 I told him that if he once again experienced protracted nausea and emesis requiring hospitalization, that I would not give him any further chemotherapy. He has completed 3 cycles of a planned 4 cycles of therapy. I see no reason to pursue a fourth cycle at this time. Once he is discharged, my office will contact him to schedule him a follow-up visit with me in 4 months. I will continue to follow along while he remains hospitalized. MTDD
--- NOTE | 2016-09-06 14:57 | Gastrointestinal Consultation ---
Gastrointestinal Consultation Date of Consultation: September 06, 2016 Attending Physician: Idamlis Lares Consulting Physician: Alfredito Major Reason for Consultation: Intractable Vomiting History of Present Illness Patient is a 51 year old male w PMHx of lung ca s/p resection, on chemotherapy, IDDM, HTN, gastroparesis w gastric pacer placement, chronic pain w c/o n/v x 5 days prior to admission. He had been followed by Dr. Amanda for his lung ca. Received Alimta and Platinol chemotherapy for 2 cycles. However, due to excessive nausea and emesis, chemotherapy for cycle #3 to Alimta and carboplatin. He was admitted last month for chemo induced n/v, responded well w Emend IV. He was discharged on oral Emend to be taking on day 0, 1, 2 of chemo. He mentioned Emend was previously working but not on second dose. Had intractable n/v not improved w his other antiemetics including Zofran, Phenergan. He feels weak, denies any CP, SOB, constipation. Bowels move regularly, no blood in stool, no sick contact. CXR unremarkable. Labs reviewed - neutropenic WBC 0.80 -> 1.4, anemic w H/H 01/30. CMP unremarkable though BS in 200s. Past Medical/Surgical History Medical Problems: (1) Altered mental status Status: Acute (2) Anemia Status: Acute (3) Dehydration Status: Acute (4) Dehydration Status: Acute (5) Dehydration Status: Acute (6) Failure of outpatient treatment Status: Acute (7) Hypomagnesemia Status: Acute (8) Hypomagnesemia Status: Acute (9) Intractable vomiting Status: Acute (10) Intractable vomiting Status: Acute (11) Orthostatic hypotension Status: Acute (12) Vomiting Status: Acute Past Medical History: See HPI Past Surgical History: L lobectomy Cholecystectomy T&A TKR Family History No pertinent family history Unrelated to current admission Social History Smoking Status: Never Smoker Alcohol Use: none Drug Use: none Marital Status: Housing Status: lives with family Allergies Coded Allergies: BEE STING (Verified Allergy, Mild, SWELLING AT SITE, SOB, 09/05/16) Penicillins (Verified Allergy, Unknown, "SINCE ", 09/05/16) Current Medications Home Meds and Scripts Medications Dose Route/Sig Max Daily Dose Days Date Category Dose Instructions Emend (Aprepitant) Unknown Strength Cap Unknown Dose 09/05/16 Reported take 125 mcg an hour before chemo then take 80 mcg daily for two days following chemo. Reglan (Metoclopramide Hcl) 10 Mg Tab 10 Mg PO ACHS PRN 08/25/16 Reported Lopressor (Metoprolol Tartrate) 25 Mg Tab 25 Mg PO BID 08/25/16 Reported Slow-Mag Tab (Magnesium Chloride) 64 Mg Tabcr 64 Mg PO BID 08/25/16 Reported Nucynta (Tapentadol Hcl) 100 Mg Tab 150 Mg PO Q6H PRN 08/25/16 Reported Dilaudid (Hydromorphone Hcl) 2 Mg Tab 8 Mg PO Q8 PRN 08/25/16 Reported Duragesic (Fentanyl) 50 Mcg Tdsy 100 Mcg TD CQ48HR 08/25/16 Reported Norvasc (Amlodipine Besylate) 10 Mg Tab 10 Mg PO DAILY 08/25/16 Reported Ondansetron HCl (Ondansetron) 4 Mg Tab 8 Mg PO Q8 PRN 08/15/16 Reported Decadron (Dexamethasone) 4 Mg Tab 8 Mg PO UD PRN 08/05/16 Reported TAKE ONLY ON DAY OF AND DAY AFTER CHEMO Neurontin (Gabapentin) 300 Mg Cap 600 Mg PO TID 08/05/16 Reported Aspirin Ec (Aspirin) 81 Mg Tab 81 Mg PO QAM 08/05/16 Reported Lantus (Insulin Glargine) 100 Unit/Ml Inj 25 Units SC QPM 08/05/16 Reported Tylenol (Acetaminophen) 500 Mg Tab 1,000 Mg PO TID PRN 08/05/16 Reported Phenergan (Promethazine Hcl) 12.5 Mg Tab 25 Mg PO Q4H PRN 08/05/16 Reported Humalog (Insulin Human Lispro) 1 Ea Inj 1 Dose SC UD 08/05/16 Reported 1 unit for every 10 greater than 120 Epipen (Epinephrine) 0.3 Mg/0.3 Ml Inj 0.3 Mg IM UD PRN 04/16/13 Reported Multivitamins (Multiple Vitamin) 1 Cap Cap 1 Cap PO QAM 04/16/13 Reported Review of Systems Constitutional: No chills, No fever, No sweats Respiratory: No cough, No shortness of breath Cardiac: No chest pain, No edema Abdomen: + nausea, + pain, + vomiting, No GI bleeding Physical Exam Date Time Temp Pulse Resp B/P Pulse Ox O2 Delivery O2 Flow Rate FiO2 09/06/16 13:57 105 87/57 09/06/16 12:44 96 201/112 09/06/16 11:31 37.2 96 16 207/109 95 Room Air 09/06/16 09:14 93 178/95 09/06/16 08:00 Room Air 09/06/16 07:55 36.7 96 20 175/102 100 09/06/16 00:00 Room Air 09/05/16 20:25 37.5 91 18 187/94 97 Room Air 09/05/16 18:00 108 18 168/94 09/05/16 16:35 37.5 105 18 190/94 97 Room Air 09/05/16 16:05 100 14 190/74 98 09/05/16 15:39 190/114 09/05/16 15:27 98 20 09/05/16 15:15 198/105 09/05/16 15:14 194/106 09/05/16 14:50 97 Room Air General Appearance: + mild distress (c/o abd pain and nausea) Eyes: normal inspection, PERRL, EOMI Neck: supple, no JVD, trachea midline Respiratory/Chest: normal breath sounds, no respiratory distress, no accessory muscle use Cardiovascular: regular rate, rhythm, no gallop, no murmur Abdomen: normal bowel sounds, soft, + tenderness (diffuse) Extremities: normal inspection, no pedal edema, no calf tenderness Neurologic/Psych: alert, oriented x 3, + depressed affect Skin: normal color, no jaundice, no rash Laboratory Results Last 24 Hours Test 09/05/16 16:47 09/05/16 20:43 09/05/16 21:55 09/06/16 01:57 Bedside Glucose 320 mg/dl 238 mg/dl 216 mg/dl Urine Color YELLOW Urine Appearance CLEAR Urine pH 5.0 Urine Specific [place] 1.025 Urine Protein 2+ Urine Glucose (UA) 3+ Urine Ketones 1+ Urine Occult Blood 1+ Urine Nitrite NEG Urine Bilirubin NEG Urine Urobilinogen NEG Urine Leukocyte Esterase NEG Urine WBC (Auto) 1-5 /hpf Urine RBC (Auto) 0-4 /hpf Urine Hyaline Casts (Auto) 1-5 /lpf Urine Epithelial Cells (Auto) 5-10 /lpf Urine Bacteria (Auto) NEG Test 09/06/16 05:34 09/06/16 07:40 09/06/16 11:27 White Blood Count 1.44 K/uL Red Blood Count 3.09 M/uL Hemoglobin 8.6 g/dL Hematocrit 25.4 % Mean Corpuscular Volume 82.2 fL Mean Corpuscular Hemoglobin 27.8 pg Mean Corpuscular Hemoglobin Concent 33.9 g/dl Platelet Count 154 K/uL Mean Platelet Volume 9.1 fL Neutrophils (%) (Auto) 46.5 % Lymphocytes (%) (Auto) 48.6 % Monocytes (%) (Auto) 2.8 % Eosinophils (%) (Auto) 0.7 % Basophils (%) (Auto) 0.7 % Neutrophils # (Auto) 0.67 K/uL Lymphocytes # (Auto) 0.70 K/uL Monocytes # (Auto) 0.04 K/uL Eosinophils # (Auto) 0.01 K/uL Basophils # (Auto) 0.01 K/uL RDW Standard Deviation 46.4 fL RDW Coefficient of Variation 15.7 % Immature Granulocyte % (Auto) 0.7 % Immature Granulocyte # (Auto) 0.01 K/uL Toxic Granulation 1+ Dohle Bodies 1+ Sodium Level 140 mmol/L Potassium Level 3.8 mmol/L Chloride Level 101 mmol/L Carbon Dioxide Level 33 mmol/L Anion Gap 6.0 mmol/L Blood Urea Nitrogen 30 mg/dl Creatinine 1.20 mg/dl Est Creatinine Clear Calc Drug Dose 70.4 ml/min Estimated GFR () 80.7 Estimated GFR (Non- 69.6 BUN/Creatinine Ratio 24.9 Random Glucose 212 mg/dl Calcium Level 8.5 mg/dl Magnesium Level 1.7 mg/dl Bedside Glucose 211 mg/dl 218 mg/dl Impression Patient is a 51 year old male admitted w n/v, likely chemo induced. Hx of lung ca s/p L lobectomy. Plan - NPO except ice chips and sips - Obtain KUB to r/o obstructive processes - Emend 150mg IV today - Protonix 40mg IV BID - IVF hydration - Symptomatic management I have seen, examined, and agree with the plan as outlined above by LINDSAY Swift -cont emend -symptoms control -Xray to r/o obstruction -if nausea continues consider NGT
[2016-09-06] MEDS ORDERED: SODIUM CHLORIDE 0.9% 1000ML 1,000 ML IV SCH (16:00)
[2016-09-06] MEDS: PANTOprazole INJ 40 MG in SYRINGE 0 ML IV SCH (21:20)
[2016-09-06] MEDS: INSULIN GLARGINE SOLOSTAR 100 UNITS/ML 3 ML PEN SC SCH (21:22)
[2016-09-06] MEDS: ENOXAPARIN 40 MG/0.4 ML SYR SQ SCH (21:26)
[2016-09-07] VITALS (16 sets, daily range): BP systolic 109–171; BP diastolic 68–103; PULSE 88–102; TEMP 36.6–37.3; O2SAT 95–100; BMI 26.8
[2016-09-07] MEDS: CHECK FENTANYL PATCH PLACEMENT SCH ×6 (00:11→23:41)
[2016-09-07] MEDS: TAPENTADOL HCL 50 MG TAB PO PRN (00:30)
[2016-09-07] MEDS: NSS + 20MEQ KCL 1000ML 1,000 ML IV SCH ×3 (01:13→17:35)
[2016-09-07] MEDS: HYDROmorphone INJ 1 MG/ML SYR IV PRN ×5 (01:37→22:15)
[2016-09-07 06:38] LABS: HEMATOCRIT 20.7 % (42-52); MEAN CELL VOLUME 82.5 fL (80-100); MEAN CORPUSCULAR HEMOGLOBIN 28.7 pg (25-34); MEAN CORPUSCULAR HGB CONC 34.8 g/dl (32-36); MEAN PLATELET VOLUME 9.2 fL (7.4-10.4); PLATELET COUNT 108 K/uL (130-400); RED BLOOD COUNT 2.51 M/uL (4.7-6.1); WHITE BLOOD COUNT 1.56 K/uL (4.8-10.8)
[2016-09-07 06:54] LABS: BUN/CREATININE RATIO 24.9 (10-20); CALCIUM 8.2 mg/dl (8.5-10.1); MAGNESIUM 1.7 mg/dl (1.8-2.4); POTASSIUM 3.7 mmol/L (3.5-5.1)
[2016-09-07] MEDS: ONDANSETRON INJ 2 MG/ML 2 ML VIAL IV PRN (08:13)
[2016-09-07] MEDS: PANTOprazole INJ 40 MG in SYRINGE 0 ML IV SCH ×2 (08:18→20:22)
[2016-09-07] MEDS: MAGNESIUM CHLORIDE 64MG DELAYED REL TAB PO SCH ×2 (08:20→20:21)
[2016-09-07] MEDS: GABAPENTIN 300 MG CAP PO SCH ×3 (08:20→20:21)
[2016-09-07] MEDS: ASPIRIN 81 MG ECTAB PO SCH (08:21)
[2016-09-07] MEDS: AMLODIPINE BESYLATE 5 MG TAB PO SCH (08:21)
[2016-09-07] MEDS: INSULIN ASPART 100 UNITS/ML 3 ML PEN SC SCH ×4 (08:41→20:27)
--- NOTE | 2016-09-07 09:23 | CONSULTATION REPORT ---
DATE OF CONSULTATION: 09/07/2016 INPATIENT CONSULTATION REPORT Plan of care discussed with Dr. Hope. CHIEF COMPLAINT: Chronic intractable neuropathic pain. HISTORY OF PRESENT ILLNESS: Mr. Hamilton is a 51-year-old white male who was recently readmitted for intractable nausea and vomiting. The patient has a past medical history significant for lung cancer, undergoing chemotherapy, most recently on 08/30/2016. The patient has insulin-dependent diabetes mellitus and gastroparesis as well as a diagnosis of chronic polyneuropathy of 17 years' duration. The patient has poor pain control. He had previously utilized intrathecal hydromorphone many years ago. The pump was explanted at that time due to infection. We have discussed pursuing hydromorphone trial through the pain service. The patient indicates that his pain is poorly controlled at this time. Currently, on fentanyl 100 mcg q. 72 hours and using Nucynta as well as IV hydromorphone for p.r.n. breakthrough pain. The patient finds minimal benefit from Nucynta 150 mg for only approximately 1 hour in duration. He feels hydromorphone IV is with improved efficacy. He further reported that oral hydromorphone appeared to be more effective than Nucynta in the outpatient setting. The patient is reporting improvement in his nausea and vomiting over the past 12 hours with another dose of emend. The patient denies change in characteristics or distribution of his pain. His pain remains total body, described as dysesthetic and paresthetica. He continues to describe diminished sensation in the lower extremities bilaterally in nondermatomal patterns. The patient is tolerating his opiate therapy at this time with minimal side effects. He has no further constitutional complaints. PAST MEDICAL HISTORY: 1. Diabetes mellitus -- insulin-dependent. 2. Diabetic polyneuropathy. 3. Chronic intractable pain secondary to #2. 4. Gastroparesis. 5. Hypertension. 6. Lung cancer, status post left-sided lobectomy. PAST SURGICAL HISTORY: 1. Colonoscopy. 2. EGD. 3. Cholecystectomy. 4. Tonsillectomy. 5. Adenoidectomy. 6. Lobectomy, left side. 7. TKA. WORK HISTORY: The patient is disabled. FAMILY HISTORY: Noncontributory. SOCIAL HISTORY: The patient is , currently lives with significant other. He is a former smoker. He utilizes 1 can smokeless tobacco every 3 days since approximately the age of 8. He denies illicit drug use. ALLERGIES: 1. BEE STINGS. 2. PENICILLIN. CURRENT MEDICATIONS: Reviewed extensively in the EMR. REVIEW OF SYSTEMS: The patient denies complaints related to cardiac, pulmonary, GI, , endocrine, neurologic, hepatic, renal, ENT, dermatologic, or musculoskeletal other than described above in HPI. PHYSICAL EXAMINATION: VITAL SIGNS: Temperature 36.6 degrees Celsius, pulse 94, respirations 16, BP 170/84, and pulse oximetry 100% on room air. GENERAL: Mr. Hamilton is lying upon entering the room. Speech and thought process are appropriate. The patient was easily arousable from sleep. His cognition was intact. He appeared to be in no obvious acute distress. EXTREMITIES: No evidence of edema, erythema or skin breakdown. Diminished sensation to sharp and dull in the lower extremities bilaterally in the nondermatomal pattern. Range of motion is without limitation. EXTREMITIES: Strength appears to be 5/5 and equal. NEUROLOGIC: Cranial nerves grossly intact. Ambulatory function not witnessed. ASSESSMENT: 1. Chronic intractable pain secondary to diabetic polyneuropathy. 2. Intractable nausea/vomiting secondary to chemotherapy. 3. History of lung cancer, status post left lobectomy, currently on chemotherapy, last dose 08/30/2016. 4. Pancytopenia. 5. History of gastroparesis, status post gastric stimulator implantation. TREATMENT AND RECOMMENDATIONS: 1. Will progress fentanyl to 125 mcg q. 72 hours. 2. Will discontinue Nucynta due to lack of perceived efficacy. 3. The patient may resume oral hydromorphone 4 mg q. 4 hours on a p.r.n. basis for breakthrough pain. He may reserve IV hydromorphone for pain not well controlled with oral. We did discuss again the concept of transitioning to oral for discharge planning and he verbalized understanding. 4. Continue gabapentin at 600 mg t.i.d. 5. Will follow up in the outpatient setting for further discussion regarding his potential candidacy for intrathecal hydromorphone trial. Thank you for the consultation on Mr. Hamilton. [facility] HOSPITALEsther
[2016-09-07] MEDS: FENTANYL 25 MCG/HR TDSY TD SCH (09:32)
[2016-09-07] MEDS: FENTANYL 100 MCG/HR TDSY TD SCH (09:33)
[2016-09-07] MEDS: MAGNESIUM SULFATE 1GM / D5W 1 GM in PREMIXED IN D5W 100 ML IV SCH ×2 (09:34→10:51)
--- NOTE | 2016-09-07 09:40 | Progress Note ---
Medicine Progress Note Date & Time of Visit: September 07, 2016 at 09:28. Subjective -nausea persists, vomited twice last night -persistent pain today-pain management came in and adjusted pain regimen -hypotensive to 80s systolic after BP med and too much narcotic. -anemia worse today-consented for blood -BM last night -still not tolerating PO but states the Emend was very helpful for him yesterday -agree with Oncology scheduling Zofran to stay ahead of the nausea--had already discussed this with him this morning as a possibility -pt does report some chills for a few seconds that seem to be going away -states that he feels he is getting a cold-denies sore throat, cough, fevers. -- >encouraged incentive spirometry Objective Last 8 Hrs Date Time Temp Pulse Resp B/P Pulse Ox O2 Delivery O2 Flow Rate FiO2 09/07/16 07:51 36.6 94 16 170/84 100 Room Air 09/07/16 04:00 36.7 88 20 109/68 95 Room Air Physical Exam: GEN: WNWD, appears uncomfortable and nautious but improved today, he is more alert and cooperative with the conversation HEENT: swollen lower lip on R side, pindrop blood seen in L nare opening, normal sclerae, mucous membranes are moist, pharynx non-acute, sinus non-tender to palp, no submandibular/cervical LAD palpable CARDIO: reg rate, S1/2 heard without m/g/r LUNGS: CTA bilaterally, no crackles, rales or wheezes, good diaphragmatic excursion ABD: soft, non-tender except over old scar tissue on LLQ (chronically tender per patient), non-distended, no rebound or guarding, +BS EXTREMITY: no LE swelling or edema, extremities are warm and well-perfused NEURO: CN 2-12 grossly intact, no gross focal deficits. MUSC: limited exam as patient is uncomfortable, however, moves all extremities equally SKIN: warm and dry, red birthmark on L forearm. Laboratory Results: 09/07/16 05:50 09/07/16 05:50 Test 09/05/16 12:18 09/05/16 21:55 09/06/16 05:34 09/07/16 05:50 Toxic Vacuolation 1+ Platelet Estimate NORMAL Total Bilirubin 0.8 mg/dl (0.2-1) Direct Bilirubin 0.2 mg/dl (0-0.2) Aspartate Amino Transf (AST/SGOT) 18 U/L (15-37) Alanine Aminotransferase (ALT/SGPT) 21 U/L (12-78) Alkaline Phosphatase 101 U/L (45-117) Total Protein 8.3 gm/dl (6.4-8.2) Albumin 3.6 gm/dl (3.4-5.0) Thyroid Stimulating Hormone (TSH) 0.732 uIu/ml (0.300-4.500) Free Thyroxine 1.44 ng/dl (0.80-1.60) Urine Color YELLOW Urine Appearance CLEAR (CLEAR) Urine pH 5.0 (4.5-7.5) Urine Specific Kaplan 1.025 (1.000-1.030) Urine Protein 2+ (NEG) Urine Glucose (UA) 3+ (NEG) Urine Ketones 1+ (NEG) Urine Occult Blood 1+ (NEG) Urine Nitrite NEG (NEG) Urine Bilirubin NEG (NEG) Urine Urobilinogen NEG (NEG) Urine Leukocyte Esterase NEG (NEG) Urine WBC (Auto) 1-5 /hpf (0-5) Urine RBC (Auto) 0-4 /hpf (0-4) Urine Hyaline Casts (Auto) 1-5 /lpf (0-5) Urine Epithelial Cells (Auto) 5-10 /lpf (0-5) Urine Bacteria (Auto) NEG (NEG) Immature Granulocyte % (Auto) 0.7 % White Blood Count 1.44 K/uL (4.8-10.8) Red Blood Count 3.09 M/uL (4.7-6.1) 2.51 M/uL (4.7-6.1) Hemoglobin 8.6 g/dL (14.0-18.0) Hematocrit 25.4 % (42-52) Mean Corpuscular Volume 82.2 fL (80-100) 82.5 fL (80-100) Mean Corpuscular Hemoglobin 27.8 pg (25-34) 28.7 pg (25-34) Mean Corpuscular Hemoglobin Concent 33.9 g/dl (32-36) 34.8 g/dl (32-36) Platelet Count 154 K/uL (130-400) Mean Platelet Volume 9.1 fL (7.4-10.4) 9.2 fL (7.4-10.4) Neutrophils (%) (Auto) 46.5 % Lymphocytes (%) (Auto) 48.6 % Monocytes (%) (Auto) 2.8 % Eosinophils (%) (Auto) 0.7 % Basophils (%) (Auto) 0.7 % Neutrophils # (Auto) 0.67 K/uL (1.4-6.5) Lymphocytes # (Auto) 0.70 K/uL (1.2-3.4) Monocytes # (Auto) 0.04 K/uL (0.11-0.59) Eosinophils # (Auto) 0.01 K/uL (0-0.5) Basophils # (Auto) 0.01 K/uL (0-0.2) Immature Granulocyte # (Auto) 0.01 K/uL (0.00-0.02) Toxic Granulation 1+ Dohle Bodies 1+ RDW Standard Deviation 47.5 fL (36.4-46.3) RDW Coefficient of Variation 15.7 % (11.5-14.5) Anion Gap 5.0 mmol/L (3-11) Est Creatinine Clear Calc Drug Dose 84.5 ml/min Estimated GFR () 100.6 Estimated GFR (Non- 86.8 BUN/Creatinine Ratio 24.9 (10-20) Calcium Level 8.2 mg/dl (8.5-10.1) Magnesium Level 1.7 mg/dl (1.8-2.4) Test 09/07/16 08:00 Bedside Glucose 130 mg/dl (70-99) Date/Time Source Procedure Growth Status 09/05/16 12:57 Blood Blood Culture - Preliminary NO GROWTH TO DATE. Resulted Last 24 Hours Test 09/06/16 11:27 09/06/16 17:22 09/06/16 20:07 09/07/16 05:50 Bedside Glucose 218 mg/dl 170 mg/dl 227 mg/dl White Blood Count 1.56 K/uL Red Blood Count 2.51 M/uL Hemoglobin 7.2 g/dL Hematocrit 20.7 % Mean Corpuscular Volume 82.5 fL Mean Corpuscular Hemoglobin 28.7 pg Mean Corpuscular Hemoglobin Concent 34.8 g/dl RDW Standard Deviation 47.5 fL RDW Coefficient of Variation 15.7 % Platelet Count 108 K/uL Mean Platelet Volume 9.2 fL Sodium Level 140 mmol/L Potassium Level 3.7 mmol/L Chloride Level 104 mmol/L Carbon Dioxide Level 31 mmol/L Anion Gap 5.0 mmol/L Blood Urea Nitrogen 25 mg/dl Creatinine 1.00 mg/dl Est Creatinine Clear Calc Drug Dose 84.5 ml/min Estimated GFR () 100.6 Estimated GFR (Non- 86.8 BUN/Creatinine Ratio 24.9 Random Glucose 135 mg/dl Calcium Level 8.2 mg/dl Magnesium Level 1.7 mg/dl Test 09/07/16 08:00 Bedside Glucose 130 mg/dl Assessment & Plan 51 year old male undergoing chemotherapy presents to the ED complaining of vomiting x 5 days INTRACTABLE CHEMO INDUCED NAUSEA/VOMITING -continue IVF hydration -Zofran scheduled -clear liquids as tolerated -Onc consult-appreciate recs ANEMIA-transfuse two units LR irradiated blood with APAP/Benadryl pretreatment this morning NEUTROPENIA/LEUKOPENIA -neutropenic precautions -Recent chemo on 08/30 -No documented fevers -CXR without signs of pneumonia and denies cough or fevers at home -no evidence of illness clinically at this time, encourage IS -blood cultures negative and UA benign -No indication for Abx at this time -WBC is improving HYPOMAGNESEMIA -Secondary to vomiting -replace follow daily ORTHOSTATIC HYPOTENSION -Secondary to dehydration in the setting of nausea/vomiting -IVF hydration -bolus given yesterday -fall precautions HYPERTENSION: -2/2 agitation and inability to tolerate PO -PRN Hydralazine for SBP>180 -cont with Norvasc per home regimen -continue efforts with antiemetics and pain meds LUNG CA -ADENOCARCINOMA -Follows with Dr. Haynes -Received chemo on 08/30 -pain present "all over", started "15 years ago" worse since Sat (5 days ago) -Fentanyl and Dilaudid per pain management team-appreciate your recs -cont bowel regimen IDDM -with hyperglycemia -Not well controlled at baseline recent A1c 10.4 -SSI coverage/Lantus--at goal this morning -pharmacy consulted for glycemic control DVT PROPHYLAXIS: Sq Lovenox CODE STATUS:FULL CODE DO Karol Sharpe Hospitalist Consultants: Heme/Onc, GI Current Inpatient Medications: Current Inpatient Medications Medications (Trade) Dose Ordered Sig/Cal Route Start Time Stop Time Status Last Admin Dose Admin Enoxaparin Sodium (Lovenox Inj) 40 mg Q24H SQ 09/05/16 21:00 10/05/16 20:59 09/06/16 21:26 40 MG Acetaminophen (Tylenol Tab) 650 mg Q4H PRN PO 09/05/16 14:45 10/05/16 14:44 Al Hydrox/Mg Hydrox/Simethicone (Maalox Max Susp) 15 ml Q4H PRN PO 09/05/16 14:45 10/05/16 14:44 Magnesium Hydroxide (Milk Of Magnesia Susp) 30 ml Q6H PRN PO 09/05/16 14:45 10/05/16 14:44 Polyethylene (Miralax Powder Packet) 17 gm DAILY PRN PO 09/05/16 14:45 10/05/16 14:44 Zolpidem Tartrate 5 mg 5 mg HSZ PRN PO 09/05/16 14:45 10/05/16 14:44 09/06/16 22:50 5 MG Potassium Chloride/Sodium Chloride 1,000 ml @ 125 mls/hr Q8H IV 09/05/16 17:30 10/05/16 17:29 09/07/16 01:13 125 MLS/HR Promethazine HCl/ Sodium Chloride (Phenergan Inj/ Nss 50ml) 50.5 ml @ 204 mls/hr Q6H PRN IV 09/05/16 14:45 10/05/16 14:44 09/06/16 19:18 204 MLS/HR Insulin Glargine (Lantus Solostar Pen) 15 unit HS SC 09/05/16 18:00 10/05/16 17:59 09/06/16 21:22 15 UNIT Insulin Aspart (novoLOG ASPART) SLIDING SCALE If C... ACHS SC 09/05/16 16:00 10/05/16 15:59 09/06/16 21:22 4 UNITS Glucose (Glucose 40% Gel) 15-30 GRAMS 15 GRAMS... UD PRN PO 09/05/16 14:45 10/05/16 14:44 Glucose (Glucose Chew Tab) 4-8 Tablets 4 Tabl... UD PRN PO 09/05/16 14:45 10/05/16 14:44 Dextrose (Dextrose 50% 50ML Syringe) 25-50ML OF 50% DW IV FOR... UD PRN IV 09/05/16 14:45 10/05/16 14:44 Glucagon (Glucagon Inj) 1 mg UD PRN SQ 09/05/16 14:45 10/05/16 14:44 Miscellaneous Information (Consult Glycemic Management Pharmacy) 1 ea UD PRN N/A 09/05/16 14:51 10/05/16 14:50 Aspirin (Ecotrin Tab) 81 mg QAM PO 09/06/16 08:00 10/06/16 08:59 09/07/16 08:21 81 MG Gabapentin (Neurontin Cap) 600 mg TID PO 09/05/16 20:00 10/05/16 20:59 09/07/16 08:20 600 MG Hydromorphone HCl (Dilaudid Tab) 8 mg Q8H PRN PO 09/05/16 15:00 09/19/16 14:59 Future Hold Magnesium Chloride (Slow-Mag Tab) 64 mg BID PO 09/05/16 20:00 10/05/16 20:59 09/07/16 08:20 64 MG Amlodipine Besylate (Norvasc Tab) 10 mg DAILY PO 09/06/16 08:00 10/06/16 08:59 09/07/16 08:21 10 MG Miscellaneous Information 1 ea 1 ea QS N/A 09/06/16 00:00 10/06/16 00:00 09/07/16 08:21 1 EA Pantoprazole Sodium/Syringe (Protonix Inj/ Syringe) 10 ml @ 5 mls/min DAILY@ IV 09/06/16 21:00 10/06/16 20:59 09/07/16 08:18 5 MLS/MIN Hydralazine HCl (HydrALAZINE INJ) 5 mg Q6H PRN IV. 09/06/16 22:00 10/06/16 21:59 Hydromorphone HCl 0.5 mg 0.5 mg Q4H PRN IV 09/06/16 15:50 09/20/16 15:49 09/07/16 08:15 0.5 MG Magnesium Sulfate/ Prmx (Magnesium Sulfate/Premixed D5W) 100 ml @ 100 mls/hr Q1H IV 09/07/16 08:30 09/07/16 10:29 Fentanyl (Duragesic Patch) 25 mcg Q48H TD 09/07/16 08:30 09/21/16 08:29 Miscellaneous (Fentanyl Patch Remove & Waste) 1 ea Q48H N/A 09/10/16 08:29 10/10/16 08:28 Miscellaneous Information (Check Fentanyl Patch Placement) 1 ea QS N/A 09/07/16 16:00 10/07/16 15:59 Hydromorphone HCl (Dilaudid Tab) 4 mg Q4H PRN PO 09/07/16 08:00 09/21/16 07:59 Fentanyl (Duragesic Patch) 100 mcg Q48H TD 09/07/16 08:30 09/21/16 08:29 Miscellaneous 1 ea 1 ea Q48H N/A 09/07/16 08:29 10/07/16 08:28 Ondansetron HCl/ Dextrose (Zofran Inj/D5 50ml) 54 ml @ 216 mls/hr Q8H IV 09/07/16 10:00 10/07/16 09:59 Diphenhydramine HCl 25 mg 25 mg ONE ONCE IV 09/07/16 09:30 09/07/16 09:31 UNV Acetaminophen/ Empty Bag (Ofirmev Iv/ Empty Iv Bag 100ml) 65 ml @ 260 mls/hr UD IV 09/07/16 09:30 10/07/16 09:29 UNV
[2016-09-07] MEDS: FENTANYL PATCH REMOVE & WASTE SCH (09:42)
[2016-09-07] MEDS ORDERED: DiphenhydrAMINE HCL 50 MG/ML VIAL IV SCH (10:00)
[2016-09-07] MEDS ORDERED: ACETAMINOPHEN IV 650 MG in EMPTY BAG 0 ML IV SCH (10:00)
--- NOTE | 2016-09-07 10:43 | Pharmacy Progress Note ---
Glycemic Control: Progress Nt Date of Service September 07, 2016. Scope Glycemic Pharmacist consulted by Marlena Chahal PA-C on 09/05/16 for glycemic control and to write orders per [facility] inpatient glycemic control protocol. Objective Accuchecks BSG (last 24hrs): Test 09/06/16 11:27 09/06/16 17:22 09/06/16 20:07 09/07/16 05:50 Bedside Glucose 218 mg/dl (70-99) 170 mg/dl (70-99) 227 mg/dl (70-99) Random Glucose 135 mg/dl (70-99) Test 09/07/16 08:00 Bedside Glucose 130 mg/dl (70-99) HbA1c: 10.4% on 08/06/16 Recent Pertinent Medications Outpatient Anti-diabetic Regimen: * Lantus 25 units SQ HS * Humalog SSI per CF = 10 The patient is currently receiving: * Basal insulin: Lantus 15 units every 24 hours given at bedtime * Correctional Insulin: Novolog Correction per scale ACHS Goal Range: Low 110 mg/dL - High 140 mg/dL Correction Factor: 20 mg/dL/unit * Prandial insulin: Per carb ratio of 1 unit per 7 grams CHO consumed Risk Factors for insulin resistance: * Elevated A1c - poor outpatient control Risk Factors for insulin sensitivity/hypo: * NPO Assessment & Plan ASSESSMENT: * 51 yo T2D M admitted with N/V, known to the glycemic service from most recent admission earlier this month * Pt admitted with elevated BSG/hyperglycemia but also NPO/reduced diet secondary to intractable N/V * Pharmacy initiated SQ basal bolus insulin regimen conservatively and continues to titrate doses based on BSG trends and risk factors for insulin resistance/hypo * Patient has been receiving ~ 25 units of insulin per day with near-adequate control * 15 units basal insulin * 10 units correctional insulin * Regimen is weighted towards basal insulin but that is because no prandial coverage is being given (while NPO) * Diet advanced to clears today. Total daily dose ~ 50 units per previous admission when tolerating a full PO diet * BSGs elevated/BSGs rise throughout the day --> Tighten CF/CR * AM fasting BSG in goal range at 130mg/dl --> no changes needed to basal insulin. Will continue to titrate for goal fasting BSG < 140mg/dl as diet advances * ADA & AACE recommend a goal blood sugar range 140-180 mg/dl for the majority of critically ill & non-critically ill patients. However, more stringent targets may be selected in individual cases. Tighten goal to 110-150 mg/dL as carb ratio won't be useful till diet advanced. PLAN FOR INPATIENT GLYCEMIC CONTROL: * Continue Basal insulin with Lantus 15 units SQ HS (this is reduced outpatient dosing for NPO - outpatient dosing is 25 units HS) * Tighten NovoLog per scale ACHS or Q6hrs while NPO * Goal Range: Low 110 mg/dL - High 150 mg/dL * Correction Factor: 20 mg/dL/unit * Nutritional / Prandial insulin per carb ratio of 1 unit per 6 grams CHO consumed * Please note that the plan above was derived based on current level of insulin resistance and hospital stress. These recommendations are appropriate for inpatient admission only. Plan of care upon discharge will need to be reassessed to avoid potential outpatient hypo/hyperglycemia. Thank you.
[2016-09-07] MEDS: HYDROmorphone HCL 2 MG TAB PO PRN ×3 (11:12→20:20)
[2016-09-07] MEDS: ONDANSETRON INJ 8 MG in DEXTROSE 5% 50ML 50 ML IV SCH ×2 (12:16→17:35)
--- NOTE | 2016-09-07 12:38 | Gastroenterology Progress Note ---
Progress Note Date of Service: September 07, 2016 Subjective Pt evaluation today including: conversation w/ patient, physical exam, chart review, lab review, review of inpatient medication list Pt still having nausea, no vomiting today. Main complaint is abd pain. KUB w/o obstructive signs. He is moving his bowels, last BM in AM loose stools. He is still not tolerating clear liquid diet Review of Systems Constitutional: No chills, No fever Cardiac: No chest pain, No edema Abdomen: + nausea, + pain, No vomiting Medications Current Inpatient Medications Medications (Trade) Dose Ordered Sig/Cal Route Start Time Stop Time Status Last Admin Dose Admin Enoxaparin Sodium (Lovenox Inj) 40 mg Q24H SQ 09/05/16 21:00 10/05/16 20:59 09/06/16 21:26 40 MG Acetaminophen (Tylenol Tab) 650 mg Q4H PRN PO 09/05/16 14:45 10/05/16 14:44 Al Hydrox/Mg Hydrox/Simethicone (Maalox Max Susp) 15 ml Q4H PRN PO 09/05/16 14:45 10/05/16 14:44 Magnesium Hydroxide (Milk Of Magnesia Susp) 30 ml Q6H PRN PO 09/05/16 14:45 10/05/16 14:44 Polyethylene (Miralax Powder Packet) 17 gm DAILY PRN PO 09/05/16 14:45 10/05/16 14:44 Zolpidem Tartrate 5 mg 5 mg HSZ PRN PO 09/05/16 14:45 10/05/16 14:44 09/06/16 22:50 5 MG Potassium Chloride/Sodium Chloride 1,000 ml @ 125 mls/hr Q8H IV 09/05/16 17:30 10/05/16 17:29 09/07/16 09:33 125 MLS/HR Promethazine HCl/ Sodium Chloride (Phenergan Inj/ Nss 50ml) 50.5 ml @ 204 mls/hr Q6H PRN IV 09/05/16 14:45 10/05/16 14:44 09/06/16 19:18 204 MLS/HR Insulin Glargine (Lantus Solostar Pen) 15 unit HS SC 09/05/16 18:00 10/05/16 17:59 09/06/16 21:22 15 UNIT Insulin Aspart (novoLOG ASPART) SLIDING SCALE If C... ACHS SC 09/05/16 16:00 10/05/16 15:59 09/07/16 12:22 1 UNITS Glucose (Glucose 40% Gel) 15-30 GRAMS 15 GRAMS... UD PRN PO 09/05/16 14:45 10/05/16 14:44 Glucose (Glucose Chew Tab) 4-8 Tablets 4 Tabl... UD PRN PO 09/05/16 14:45 10/05/16 14:44 Dextrose (Dextrose 50% 50ML Syringe) 25-50ML OF 50% DW IV FOR... UD PRN IV 09/05/16 14:45 10/05/16 14:44 Glucagon (Glucagon Inj) 1 mg UD PRN SQ 09/05/16 14:45 10/05/16 14:44 Miscellaneous Information (Consult Glycemic Management Pharmacy) 1 ea UD PRN N/A 09/05/16 14:51 10/05/16 14:50 Aspirin (Ecotrin Tab) 81 mg QAM PO 09/06/16 08:00 10/06/16 08:59 09/07/16 08:21 81 MG Gabapentin (Neurontin Cap) 600 mg TID PO 09/05/16 20:00 10/05/16 20:59 09/07/16 08:20 600 MG Hydromorphone HCl (Dilaudid Tab) 8 mg Q8H PRN PO 09/05/16 15:00 09/19/16 14:59 Future Hold Magnesium Chloride (Slow-Mag Tab) 64 mg BID PO 09/05/16 20:00 10/05/16 20:59 09/07/16 08:20 64 MG Amlodipine Besylate (Norvasc Tab) 10 mg DAILY PO 09/06/16 08:00 10/06/16 08:59 09/07/16 08:21 10 MG Miscellaneous Information 1 ea 1 ea QS N/A 09/06/16 00:00 10/06/16 00:00 09/07/16 08:21 1 EA Pantoprazole Sodium/Syringe (Protonix Inj/ Syringe) 10 ml @ 5 mls/min DAILY@,21 IV 09/06/16 21:00 10/06/16 20:59 09/07/16 08:18 5 MLS/MIN Hydralazine HCl (HydrALAZINE INJ) 5 mg Q6H PRN IV. 09/06/16 22:00 10/06/16 21:59 Hydromorphone HCl (Dilaudid Inj) 0.5 mg Q4H PRN IV 09/06/16 15:50 09/20/16 15:49 09/07/16 12:16 0.5 MG Fentanyl (Duragesic Patch) 25 mcg Q48H TD 09/07/16 08:30 09/21/16 08:29 09/07/16 09:32 25 MCG Miscellaneous (Fentanyl Patch Remove & Waste) 1 ea Q48H N/A 09/10/16 08:29 10/10/16 08:28 Miscellaneous Information (Check Fentanyl Patch Placement) 1 ea QS N/A 09/07/16 16:00 10/07/16 15:59 Hydromorphone HCl (Dilaudid Tab) 4 mg Q4H PRN PO 09/07/16 08:00 09/21/16 07:59 09/07/16 11:12 4 MG Fentanyl (Duragesic Patch) 100 mcg Q48H TD 09/07/16 08:30 09/21/16 08:29 09/07/16 09:33 100 MCG Miscellaneous 1 ea 1 ea Q48H N/A 09/07/16 08:29 10/07/16 08:28 09/07/16 09:42 1 EA Ondansetron HCl/ Dextrose (Zofran Inj/D5 50ml) 54 ml @ 216 mls/hr Q8H IV 09/07/16 10:00 10/07/16 09:59 09/07/16 12:16 216 MLS/HR Diphenhydramine HCl 25 mg 25 mg TODAY@1000 IV 09/07/16 10:00 09/07/16 23:59 09/07/16 11:12 25 MG Acetaminophen/ Empty Bag (Ofirmev Iv/ Empty Iv Bag 100ml) 65 ml @ 260 mls/hr TODAY@1000 IV 09/07/16 10:00 09/07/16 23:59 09/07/16 11:20 260 MLS/HR Objective Vital Signs Date Time Temp Pulse Resp B/P Pulse Ox O2 Delivery O2 Flow Rate FiO2 09/07/16 12:10 37.1 91 18 153/88 09/07/16 11:55 36.9 92 16 171/89 09/07/16 11:39 37.2 94 18 167/94 09/07/16 09:48 90 158/95 09/07/16 08:15 Room Air 09/07/16 07:51 36.6 94 16 170/84 100 Room Air 09/07/16 04:00 36.7 88 20 109/68 95 Room Air 09/07/16 00:00 Room Air 09/06/16 23:20 36.2 89 20 144/90 99 09/06/16 19:15 36.6 99 18 134/83 98 Room Air 09/06/16 17:00 Room Air 09/06/16 15:17 91/55 09/06/16 15:16 120/72 09/06/16 15:16 95 149/87 09/06/16 15:00 97 147/83 09/06/16 13:57 105 87/57 09/06/16 12:44 96 201/112 Physical Exam General Appearance: + mild distress Eyes: normal inspection, PERRL, EOMI Neck: supple, no JVD, trachea midline Respiratory/Chest: normal breath sounds, no respiratory distress, no accessory muscle use Cardiovascular: regular rate, rhythm, no gallop, no murmur Abdomen: soft, + abnormal bowel sounds (hypoactive), + tenderness (upper abd) Extremities: normal inspection, no pedal edema, no calf tenderness Neurologic/Psych: alert, normal mood/affect, oriented x 3 Skin: normal color, no jaundice, no rash Laboratory Results Last 24 Hours Test 09/06/16 17:22 09/06/16 20:07 09/07/16 05:50 09/07/16 08:00 Bedside Glucose 170 mg/dl 227 mg/dl 130 mg/dl White Blood Count 1.56 K/uL Red Blood Count 2.51 M/uL Hemoglobin 7.2 g/dL Hematocrit 20.7 % Mean Corpuscular Volume 82.5 fL Mean Corpuscular Hemoglobin 28.7 pg Mean Corpuscular Hemoglobin Concent 34.8 g/dl RDW Standard Deviation 47.5 fL RDW Coefficient of Variation 15.7 % Platelet Count 108 K/uL Mean Platelet Volume 9.2 fL Sodium Level 140 mmol/L Potassium Level 3.7 mmol/L Chloride Level 104 mmol/L Carbon Dioxide Level 31 mmol/L Anion Gap 5.0 mmol/L Blood Urea Nitrogen 25 mg/dl Creatinine 1.00 mg/dl Est Creatinine Clear Calc Drug Dose 84.5 ml/min Estimated GFR () 100.6 Estimated GFR (Non- 86.8 BUN/Creatinine Ratio 24.9 Random Glucose 135 mg/dl Calcium Level 8.2 mg/dl Magnesium Level 1.7 mg/dl Test 09/07/16 11:40 Bedside Glucose 168 mg/dl Assessment and Plan Impression Patient is a 51 year old male admitted w n/v, likely chemo induced. Hx of lung ca s/p L lobectomy. Reports Emend 150mg IV yesterday helped some. Nausea still persist, no vomiting. c/o abd pain. Not tolerating CL diet well. KUB didn't show any signs of obstructions, he's having loose BMs. Plan - CL diet but if nausea, vomiting persist or worse back down to NPO w sips/ chips. May need NGT if vomiting continues. - Emend 150mg IV yesterday, cannot repeat today. Will try Aloxi 0.25mg IV x 1 dose. Continue current PRN antiemetics ordered (Phenergan, Zofran). - Protonix 40mg IV BID - IVF hydration - Symptomatic management I have seen, examined and agree with the plan as outlined by LINDSAY Valderrama as above. -exam reveals soft abd -nausea treatment, if fails with aloxi may try low dose benzo
[2016-09-07] MEDS ORDERED: PALONOSETRON IV 0.25 MG in SYRINGE 0 ML IV ONE (12:45)
[2016-09-07] MEDS ORDERED: ONDANSETRON 8 MG/54 ML D5W IV SCH (14:00)
[2016-09-07] MEDS: ENOXAPARIN 40 MG/0.4 ML SYR SQ SCH (20:22)
[2016-09-07] MEDS: INSULIN GLARGINE SOLOSTAR 100 UNITS/ML 3 ML PEN SC SCH (20:28)
[2016-09-07] MEDS ORDERED: FENTANYL PATCH REMOVE & WASTE SCH (20:59)
[2016-09-07] MEDS: ZOLPIDEM TARTRATE 5 MG TAB PO PRN (22:15)
[2016-09-08] VITALS (8 sets, daily range): BP systolic 127–178; BP diastolic 79–107; PULSE 74–103; TEMP 36.5–37.7; O2SAT 97–100; BMI 27.7
[2016-09-08] MEDS: ONDANSETRON INJ 8 MG in DEXTROSE 5% 50ML 50 ML IV SCH ×3 (01:37→18:00)
[2016-09-08] MEDS: NSS + 20MEQ KCL 1000ML 1,000 ML IV SCH ×2 (01:37→10:41)
[2016-09-08] MEDS: HYDROmorphone INJ 1 MG/ML SYR IV PRN ×3 (05:49→16:34)
[2016-09-08 05:50] LABS: HEMATOCRIT 24.7 % (42-52); MEAN CELL VOLUME 80.7 fL (80-100); MEAN CORPUSCULAR HEMOGLOBIN 28.4 pg (25-34); MEAN CORPUSCULAR HGB CONC 35.2 g/dl (32-36); RED BLOOD COUNT 3.06 M/uL (4.7-6.1); WHITE BLOOD COUNT 1.65 K/uL (4.8-10.8)
[2016-09-08 06:17] LABS: BUN/CREATININE RATIO 17.9 (10-20); CALCIUM 8.2 mg/dl (8.5-10.1); CREATININE 0.97 mg/dl (0.60-1.40); MAGNESIUM 1.6 mg/dl (1.8-2.4)
[2016-09-08 06:29] LABS: MEAN PLATELET VOLUME 8.8 fL (7.4-10.4); PLATELET COUNT 79 K/uL (130-400); PLT ESTIMATE DECREASED
[2016-09-08] MEDS: GABAPENTIN 300 MG CAP PO SCH ×3 (07:52→20:18)
[2016-09-08] MEDS: CHECK FENTANYL PATCH PLACEMENT SCH ×4 (07:52→16:16)
[2016-09-08] MEDS: ASPIRIN 81 MG ECTAB PO SCH (07:52)
[2016-09-08] MEDS: AMLODIPINE BESYLATE 5 MG TAB PO SCH (07:52)
[2016-09-08] MEDS: MAGNESIUM CHLORIDE 64MG DELAYED REL TAB PO SCH ×2 (07:53→20:18)
[2016-09-08] MEDS: HYDROmorphone HCL 2 MG TAB PO PRN ×3 (07:58→20:17)
[2016-09-08] MEDS: PANTOprazole INJ 40 MG in SYRINGE 0 ML IV SCH ×2 (07:58→20:44)
[2016-09-08] MEDS ORDERED: MAG SULFATE 50% INJ 4 GM in SODIUM CHLORIDE 0.9% 500ML 500 ML IV SCH (08:30)
[2016-09-08] MEDS: INSULIN ASPART 100 UNITS/ML 3 ML PEN SC SCH ×4 (08:30→20:50)
--- NOTE | 2016-09-08 09:39 | Pharmacy Progress Note ---
Glycemic Control: Progress Nt Date of Service September 08, 2016. Scope Glycemic Pharmacist consulted by Marlena Chahal PA-C on 09/05/16 for glycemic control and to write orders per [facility] inpatient glycemic control protocol. Objective Accuchecks BSG (last 24hrs): Test 09/07/16 11:40 09/07/16 16:00 09/07/16 20:09 09/08/16 05:35 Bedside Glucose 168 mg/dl (70-99) 130 mg/dl (70-99) 141 mg/dl (70-99) Random Glucose 65 mg/dl (70-99) Test 09/08/16 06:44 09/08/16 07:36 09/08/16 07:37 Bedside Glucose 67 mg/dl (70-99) 66 mg/dl (70-99) 74 mg/dl (70-99) Laboratory Data (last 24hrs) HbA1c: 10.4% on 08/06/16 Recent Pertinent Medications Outpatient Anti-diabetic Regimen: * Lantus 25 units SQ HS * Humalog SSI per CF = 10 The patient is currently receiving: * Basal insulin: Lantus 15 units every 24 hours given at bedtime * Correctional Insulin: Novolog Correction per scale ACHS Goal Range: Low 110 mg/dL - High 140 mg/dL Correction Factor: 20 mg/dL/unit * Prandial insulin: Per carb ratio of 1 unit per 6 grams CHO consumed Risk Factors for insulin resistance: * Elevated A1c - poor outpatient control Risk Factors for insulin sensitivity/hypo: * NPO Assessment & Plan ASSESSMENT: * 51 yo T2D M admitted with N/V, known to the glycemic service from most recent admission earlier this month * Pt admitted with elevated BSG/hyperglycemia but also NPO/reduced diet secondary to intractable N/V * Pharmacy initiated SQ basal bolus insulin regimen conservatively and continues to titrate doses based on BSG trends and risk factors for insulin resistance/hypo * Patient has been receiving ~ 17 units of insulin per day with near-adequate control * 15 units basal insulin * 2 units correctional insulin * Regimen is weighted towards basal insulin but that is because no prandial coverage is being given (while NPO) * Diet advanced to clears yesterday but PO intake still minimal. Total daily dose ~ 50 units per previous admission when tolerating a full PO diet * AM fasting BSG below goal range at 67mg/dl --> need to decrease basal insulin to prevent repeat hypo. Will continue to titrate for goal fasting BSG > 70 & < 140mg/dl as diet advances * ADA & AACE recommend a goal blood sugar range 140-180 mg/dl for the majority of critically ill & non-critically ill patients. However, more stringent targets may be selected in individual cases. Utilize slighlty more stringent goal of 120-160 mg/dL as carb ratio won't be useful till diet advanced. Will keep "low" end of goal range elevated to help prevent hypo. PLAN FOR INPATIENT GLYCEMIC CONTROL: * Basal insulin * DECREASE to Lantus 12 units SQ HS (was ordered at 15 units HS for NPO - outpatient dosing is 25 units HS) * Bolus insulin * NO CHANGE, NovoLog per scale ACHS or Q6hrs while NPO * Goal Range: Low 110 mg/dL - High 150 mg/dL * Correction Factor: 20 mg/dL/unit * Nutritional / Prandial insulin per carb ratio of 1 unit per 6 grams CHO consumed * Please note that the plan above was derived based on current level of insulin resistance and hospital stress. These recommendations are appropriate for inpatient admission only. Plan of care upon discharge will need to be reassessed to avoid potential outpatient hypo/hyperglycemia. Thank you.
--- NOTE | 2016-09-08 17:03 | DIAGNOSTIC IMAGING REPORT ---
CHEST ONE VIEW PORTABLE CLINICAL HISTORY: cough, blood/IVF given, posse fluid overload? Dyspnea COMPARISON STUDY: 09/05/2016 FINDINGS: Trace pleural fluid left lateral costophrenic angle. Chronic splenic atelectatic change left suprahilar region. Lungs otherwise appear clear. No evidence for cardiac enlargement or congestive failure. IMPRESSION: Trace pleural fluid left lateral costophrenic angle. Study is otherwise negative. Electronically signed by: Fuad Betancourt M.D. 09/08/2016 5:02 PM Dictated Date/Time: 09/08/2016 5:01 PM
--- NOTE | 2016-09-08 17:15 | Progress Note ---
Medicine Progress Note Date & Time of Visit: September 08, 2016 at 16:16. Subjective 51 year old male undergoing chemotherapy presents to the ED complaining of vomiting x 5 days -improved but still reports nausea, "throwing up everything I eat", and "pain all over" -he was changed to solid food today per his request -he is ambulating independently -he reports a new cough since the blood was given yesterday. -this in conjunction with IVF for several days prompted a CXR-->no fluid overload seen but IVF stopped. Objective Last 8 Hrs Date Time Temp Pulse Resp B/P Pulse Ox O2 Delivery O2 Flow Rate FiO2 09/08/16 15:11 36.7 97 20 127/79 100 09/08/16 11:27 37.1 74 16 145/87 97 Room Air Physical Exam: GEN: WNWD, appears uncomfortable and nautious but improved today, he is more alert and cooperative with the conversation HEENT: swollen lower lip on R side, pindrop blood seen in L nare opening, normal sclerae, mucous membranes are moist, pharynx non-acute, sinus non-tender to palp, no submandibular/cervical LAD palpable CARDIO: reg rate, S1/2 heard without m/g/r LUNGS: CTA bilaterally, no crackles, rales or wheezes, good diaphragmatic excursion ABD: soft, non-tender except over old scar tissue on LLQ (chronically tender per patient), non-distended, no rebound or guarding, +BS EXTREMITY: no LE swelling or edema, extremities are warm and well-perfused NEURO: CN 2-12 grossly intact, no gross focal deficits. MUSC: limited exam as patient is uncomfortable, however, moves all extremities equally SKIN: warm and dry, red birthmark on L forearm. Laboratory Results: 09/08/16 05:35 09/08/16 05:35 Test 09/05/16 12:18 09/05/16 21:55 09/06/16 05:34 09/08/16 05:35 Toxic Vacuolation 1+ Total Bilirubin 0.8 mg/dl (0.2-1) Direct Bilirubin 0.2 mg/dl (0-0.2) Aspartate Amino Transf (AST/SGOT) 18 U/L (15-37) Alanine Aminotransferase (ALT/SGPT) 21 U/L (12-78) Alkaline Phosphatase 101 U/L (45-117) Total Protein 8.3 gm/dl (6.4-8.2) Albumin 3.6 gm/dl (3.4-5.0) Thyroid Stimulating Hormone (TSH) 0.732 uIu/ml (0.300-4.500) Free Thyroxine 1.44 ng/dl (0.80-1.60) Urine Color YELLOW Urine Appearance CLEAR (CLEAR) Urine pH 5.0 (4.5-7.5) Urine Specific [place] 1.025 (1.000-1.030) Urine Protein 2+ (NEG) Urine Glucose (UA) 3+ (NEG) Urine Ketones 1+ (NEG) Urine Occult Blood 1+ (NEG) Urine Nitrite NEG (NEG) Urine Bilirubin NEG (NEG) Urine Urobilinogen NEG (NEG) Urine Leukocyte Esterase NEG (NEG) Urine WBC (Auto) 1-5 /hpf (0-5) Urine RBC (Auto) 0-4 /hpf (0-4) Urine Hyaline Casts (Auto) 1-5 /lpf (0-5) Urine Epithelial Cells (Auto) 5-10 /lpf (0-5) Urine Bacteria (Auto) NEG (NEG) Immature Granulocyte % (Auto) 0.7 % White Blood Count 1.44 K/uL (4.8-10.8) Red Blood Count 3.09 M/uL (4.7-6.1) 3.06 M/uL (4.7-6.1) Hemoglobin 8.6 g/dL (14.0-18.0) Hematocrit 25.4 % (42-52) Mean Corpuscular Volume 82.2 fL (80-100) 80.7 fL (80-100) Mean Corpuscular Hemoglobin 27.8 pg (25-34) 28.4 pg (25-34) Mean Corpuscular Hemoglobin Concent 33.9 g/dl (32-36) 35.2 g/dl (32-36) Platelet Count 154 K/uL (130-400) Mean Platelet Volume 9.1 fL (7.4-10.4) 8.8 fL (7.4-10.4) Neutrophils (%) (Auto) 46.5 % Lymphocytes (%) (Auto) 48.6 % Monocytes (%) (Auto) 2.8 % Eosinophils (%) (Auto) 0.7 % Basophils (%) (Auto) 0.7 % Neutrophils # (Auto) 0.67 K/uL (1.4-6.5) Lymphocytes # (Auto) 0.70 K/uL (1.2-3.4) Monocytes # (Auto) 0.04 K/uL (0.11-0.59) Eosinophils # (Auto) 0.01 K/uL (0-0.5) Basophils # (Auto) 0.01 K/uL (0-0.2) Immature Granulocyte # (Auto) 0.01 K/uL (0.00-0.02) Toxic Granulation 1+ Dohle Bodies 1+ RDW Standard Deviation 45.6 fL (36.4-46.3) RDW Coefficient of Variation 15.5 % (11.5-14.5) Platelet Estimate DECREASED Anion Gap 7.0 mmol/L (3-11) Est Creatinine Clear Calc Drug Dose 91.4 ml/min Estimated GFR () 104.3 Estimated GFR (Non- 90.0 BUN/Creatinine Ratio 17.9 (10-20) Calcium Level 8.2 mg/dl (8.5-10.1) Magnesium Level 1.6 mg/dl (1.8-2.4) Test 09/08/16 16:53 Bedside Glucose 136 mg/dl (70-99) Date/Time Source Procedure Growth Status 09/05/16 12:57 Blood Blood Culture - Preliminary NO GROWTH TO DATE. Resulted Last 24 Hours Test 09/07/16 20:09 09/08/16 05:35 09/08/16 06:44 09/08/16 07:36 Bedside Glucose 141 mg/dl 67 mg/dl 66 mg/dl White Blood Count 1.65 K/uL Red Blood Count 3.06 M/uL Hemoglobin 8.7 g/dL Hematocrit 24.7 % Mean Corpuscular Volume 80.7 fL Mean Corpuscular Hemoglobin 28.4 pg Mean Corpuscular Hemoglobin Concent 35.2 g/dl RDW Standard Deviation 45.6 fL RDW Coefficient of Variation 15.5 % Platelet Count 79 K/uL Mean Platelet Volume 8.8 fL Platelet Estimate DECREASED Sodium Level 139 mmol/L Potassium Level 4.0 mmol/L Chloride Level 101 mmol/L Carbon Dioxide Level 31 mmol/L Anion Gap 7.0 mmol/L Blood Urea Nitrogen 17 mg/dl Creatinine 0.97 mg/dl Est Creatinine Clear Calc Drug Dose 91.4 ml/min Estimated GFR () 104.3 Estimated GFR (Non- 90.0 BUN/Creatinine Ratio 17.9 Random Glucose 65 mg/dl Calcium Level 8.2 mg/dl Magnesium Level 1.6 mg/dl Test 09/08/16 07:37 09/08/16 11:37 Bedside Glucose 74 mg/dl 105 mg/dl Assessment & Plan 51 year old male undergoing chemotherapy presents to the ED complaining of vomiting x 5 days INTRACTABLE CHEMO INDUCED NAUSEA/VOMITING -supportive care methods including pain meds, antiemetics and IVF has seemed to improve him today. -although still vomiting he is keeping some food down and is able to ambulate around the floor independently -cont Zofran scheduled -diet was advanced to regular food -stopping IVF at this time to avoid fluid overload ANEMIA -s/p 2 U PRBCs yesterday morning with good response -there is an element of hemodilution with the ongoing IVF at 125mls/hr over the last couple of days -IVFs were stopped -CBC with diff in am NEUTROPENIA/LEUKOPENIA -WBC count improved -Recent chemo on 08/30 -No documented fevers -no recs from Onc on GCSF -CXR without signs of pneumonia and denies cough or fevers at home -no evidence of illness clinically at this time, encourage IS -blood cultures negative and UA benign -No indication for Abx at this time HYPOMAGNESEMIA -Secondary to vomiting -persists today -replace follow daily ORTHOSTATIC HYPOTENSION -Secondary to dehydration in the setting of nausea/vomiting -fall precautions -bolus with IVF as needed -currently ambulating independently and appears clinically improved and stable. HYPERTENSION: -2/2 agitation and inability to tolerate PO in addition to chronic pain -PRN Hydralazine for SBP>180 -cont with Norvasc per home regimen -continue efforts with antiemetics and pain meds LUNG CA -ADENOCARCINOMA -Follows with Dr. Haynes -Received chemo on 08/30 -pain present "all over", started "15 years ago" worse since Sat (5 days ago) -Fentanyl and Dilaudid per pain management team-appreciate your recs -cont bowel regimen CHRONIC PAIN 2/2 long-standing neuropathy and current situation with cancer on chemotherapy as above IDDM -with hyperglycemia -Not well controlled at baseline recent A1c 10.4 -SSI coverage/Lantus--hypoglycemic this morning, pharmacy reduced Lantus dosing -expect to be somewhat higher now that he is eating -pharmacy consulted for glycemic control DVT PROPHYLAXIS: Sq Lovenox CODE STATUS:FULL CODE DO Karol Sharpe Hospitalist Consultants: Heme/Onc, GI Current Inpatient Medications: Current Inpatient Medications Medications (Trade) Dose Ordered Sig/Cal Route Start Time Stop Time Status Last Admin Dose Admin Enoxaparin Sodium (Lovenox Inj) 40 mg Q24H SQ 09/05/16 21:00 10/05/16 20:59 09/07/16 20:22 40 MG Acetaminophen (Tylenol Tab) 650 mg Q4H PRN PO 09/05/16 14:45 10/05/16 14:44 Al Hydrox/Mg Hydrox/Simethicone (Maalox Max Susp) 15 ml Q4H PRN PO 09/05/16 14:45 10/05/16 14:44 Magnesium Hydroxide (Milk Of Magnesia Susp) 30 ml Q6H PRN PO 09/05/16 14:45 10/05/16 14:44 Polyethylene (Miralax Powder Packet) 17 gm DAILY PRN PO 09/05/16 14:45 10/05/16 14:44 Zolpidem Tartrate 5 mg 5 mg HSZ PRN PO 09/05/16 14:45 10/05/16 14:44 09/07/16 22:15 5 MG Potassium Chloride/Sodium Chloride 1,000 ml @ 125 mls/hr Q8H IV 09/05/16 17:30 10/05/16 17:29 09/08/16 10:41 125 MLS/HR Promethazine HCl/ Sodium Chloride (Phenergan Inj/ Nss 50ml) 50.5 ml @ 204 mls/hr Q6H PRN IV 09/05/16 14:45 10/05/16 14:44 09/06/16 19:18 204 MLS/HR Insulin Aspart (novoLOG ASPART) SLIDING SCALE If C... ACHS SC 09/05/16 16:00 10/05/16 15:59 09/07/16 20:27 1 UNITS Glucose (Glucose 40% Gel) 15-30 GRAMS 15 GRAMS... UD PRN PO 09/05/16 14:45 10/05/16 14:44 Glucose (Glucose Chew Tab) 4-8 Tablets 4 Tabl... UD PRN PO 09/05/16 14:45 10/05/16 14:44 Dextrose (Dextrose 50% 50ML Syringe) 25-50ML OF 50% DW IV FOR... UD PRN IV 09/05/16 14:45 10/05/16 14:44 Glucagon (Glucagon Inj) 1 mg UD PRN SQ 09/05/16 14:45 10/05/16 14:44 Miscellaneous Information (Consult Glycemic Management Pharmacy) 1 ea UD PRN N/A 09/05/16 14:51 10/05/16 14:50 Aspirin (Ecotrin Tab) 81 mg QAM PO 09/06/16 08:00 10/06/16 08:59 09/08/16 07:52 81 MG Gabapentin (Neurontin Cap) 600 mg TID PO 09/05/16 20:00 10/05/16 20:59 09/08/16 13:50 600 MG Hydromorphone HCl (Dilaudid Tab) 8 mg Q8H PRN PO 09/05/16 15:00 09/19/16 14:59 Future Hold Magnesium Chloride (Slow-Mag Tab) 64 mg BID PO 09/05/16 20:00 10/05/16 20:59 09/08/16 07:53 64 MG Amlodipine Besylate (Norvasc Tab) 10 mg DAILY PO 09/06/16 08:00 10/06/16 08:59 09/08/16 07:52 10 MG Miscellaneous Information 1 ea 1 ea QS N/A 09/06/16 00:00 10/06/16 00:00 09/08/16 07:52 1 EA Pantoprazole Sodium/Syringe (Protonix Inj/ Syringe) 10 ml @ 5 mls/min DAILY@ IV 09/06/16 21:00 10/06/16 20:59 09/08/16 07:58 5 MLS/MIN Hydralazine HCl (HydrALAZINE INJ) 5 mg Q6H PRN IV. 09/06/16 22:00 10/06/16 21:59 Hydromorphone HCl (Dilaudid Inj) 0.5 mg Q4H PRN IV 09/06/16 15:50 09/20/16 15:49 09/08/16 10:48 0.5 MG Fentanyl (Duragesic Patch) 25 mcg Q48H TD 09/07/16 08:30 09/21/16 08:29 09/07/16 09:32 25 MCG Miscellaneous (Fentanyl Patch Remove & Waste) 1 ea Q48H N/A 09/10/16 08:29 10/10/16 08:28 Miscellaneous Information (Check Fentanyl Patch Placement) 1 ea QS N/A 09/07/16 16:00 10/07/16 15:59 09/08/16 07:53 1 EA Hydromorphone HCl (Dilaudid Tab) 4 mg Q4H PRN PO 09/07/16 08:00 09/21/16 07:59 09/08/16 13:50 4 MG Fentanyl (Duragesic Patch) 100 mcg Q48H TD 09/07/16 08:30 09/21/16 08:29 09/07/16 09:33 100 MCG Miscellaneous 1 ea 1 ea Q48H N/A 09/07/16 08:29 10/07/16 08:28 09/07/16 09:42 1 EA Ondansetron HCl/ Dextrose (Zofran Inj/D5 50ml) 54 ml @ 216 mls/hr Q8H IV 09/07/16 10:00 10/07/16 09:59 09/08/16 10:41 216 MLS/HR Insulin Glargine (Lantus Solostar Pen) 12 unit HS SC 09/08/16 21:00 10/08/16 20:59
[2016-09-08] MEDS: ENOXAPARIN 40 MG/0.4 ML SYR SQ SCH (20:45)
[2016-09-08] MEDS: PROMETHAZINE HCL INJ 12.5 MG in SODIUM CHLORIDE 0.9% 50ML 50 ML IV PRN (22:14)
[2016-09-08] MEDS: INSULIN GLARGINE SOLOSTAR 100 UNITS/ML 3 ML PEN SC SCH (22:15)
[2016-09-09] VITALS: O2SAT 98
[2016-09-09] MEDS: CHECK FENTANYL PATCH PLACEMENT SCH ×6 (00:43→16:22)
[2016-09-09] MEDS: ONDANSETRON INJ 8 MG in DEXTROSE 5% 50ML 50 ML IV SCH ×3 (03:28→17:46)
[2016-09-09 04:48] VITALS: BP 122/75; PULSE 96; TEMP 36.7; O2SAT 99
[2016-09-09 05:04] VITALS: BMI 29.8
[2016-09-09] MEDS: HYDROmorphone HCL 2 MG TAB PO PRN ×5 (05:08→22:44)
[2016-09-09 05:48] LABS: HEMATOCRIT 24.1 % (42-52); MEAN CORPUSCULAR HEMOGLOBIN 29.3 pg (25-34); MEAN CORPUSCULAR HGB CONC 35.7 g/dl (32-36); MEAN PLATELET VOLUME 9.2 fL (7.4-10.4); PLATELET COUNT 73 K/uL (130-400); RED BLOOD COUNT 2.94 M/uL (4.7-6.1); WHITE BLOOD COUNT 2.26 K/uL (4.8-10.8)
[2016-09-09 06:03] LABS: COMPLETE YES; DOHLE BODIES 2+; EOS % 10.2 %; LYMPH ABS # 1.22 K/uL (1.2-3.4); MONO % 7.1 %; NEUT % 28.7 %; TOXIC GRANULATION 3+
[2016-09-09 06:12] LABS: BUN/CREATININE RATIO 10.8 (10-20); CALCIUM 8.5 mg/dl (8.5-10.1); CREATININE 1.2 mg/dl (0.60-1.40); MAGNESIUM 2.1 mg/dl (1.8-2.4); POTASSIUM 4.5 mmol/L (3.5-5.1)
[2016-09-09] MEDS: INSULIN ASPART 100 UNITS/ML 3 ML PEN SC SCH ×4 (06:30→20:43)
[2016-09-09 07:15] VITALS: BP 169/93; PULSE 98; TEMP 37.1; O2SAT 96
[2016-09-09] MEDS: FENTANYL PATCH REMOVE & WASTE SCH (08:08)
[2016-09-09] MEDS: FENTANYL 25 MCG/HR TDSY TD SCH (08:21)
[2016-09-09] MEDS: FENTANYL 100 MCG/HR TDSY TD SCH (08:21)
[2016-09-09] MEDS: PROMETHAZINE HCL INJ 12.5 MG in SODIUM CHLORIDE 0.9% 50ML 50 ML IV PRN ×2 (08:21→20:35)
[2016-09-09] MEDS: GABAPENTIN 300 MG CAP PO SCH ×3 (08:22→20:35)
[2016-09-09] MEDS: PANTOprazole INJ 40 MG in SYRINGE 0 ML IV SCH ×2 (08:22→20:36)
[2016-09-09] MEDS: AMLODIPINE BESYLATE 5 MG TAB PO SCH (08:22)
[2016-09-09] MEDS: MAGNESIUM CHLORIDE 64MG DELAYED REL TAB PO SCH ×2 (08:22→20:35)
[2016-09-09] MEDS: HYDROmorphone INJ 1 MG/ML SYR IV PRN (08:22)
[2016-09-09] MEDS: ASPIRIN 81 MG ECTAB PO SCH (08:22)
--- NOTE | 2016-09-09 10:50 | Pharmacy Progress Note ---
Glycemic Control: Progress Nt Date of Service September 09, 2016. Scope Glycemic Pharmacist consulted by Marlena Chahal PA-C on 09/05/16 for glycemic control and to write orders per [facility] inpatient glycemic control protocol. Objective Accuchecks BSG (last 24hrs): Test 09/08/16 11:37 09/08/16 16:53 09/08/16 20:09 09/09/16 05:15 Bedside Glucose 105 mg/dl (70-99) 136 mg/dl (70-99) 139 mg/dl (70-99) Random Glucose 131 mg/dl (70-99) Test 09/09/16 07:30 Bedside Glucose 139 mg/dl (70-99) HbA1c: 10.4% on 08/06/16 Recent Pertinent Medications Outpatient Anti-diabetic Regimen: * Lantus 25 units SQ HS * Humalog SSI per CF = 10 The patient is currently receiving: * Basal insulin: Lantus 12 units every 24 hours given at bedtime * Correctional Insulin: Novolog Correction per scale ACHS Goal Range: Low 120 mg/dL - High 160 mg/dL Correction Factor: 20 mg/dL/unit * Prandial insulin: Per carb ratio of 1 unit per 6 grams CHO consumed Risk Factors for insulin resistance: * Elevated A1c - poor outpatient control Risk Factors for insulin sensitivity/hypo: * NPO Assessment & Plan ASSESSMENT: * 51 yo T2D M admitted with N/V, known to the glycemic service from most recent admission earlier this month * Total daily dose ~ 50 units per previous admission when tolerating a full PO diet * Total daily dose of insulin continues to decrease d/t decreased PO intake [ 27 units on 09/06 --> 17 units on 09/07 --> 12 units on 09/08] * 12 units basal insulin * 0 units correctional insulin * 0 units of prandial insulin * Regimen is weighted towards basal insulin but that is because no prandial coverage is being given (while essentially NPO, pt ordered diet but not eating well) * AM fasting BSG in goal range per inpatient targets this morning @ 139mg/dl with basal insulin dose reduction yesterday. No changes needed today. * ADA & AACE recommend a goal blood sugar range 140-180 mg/dl for the majority of critically ill & non-critically ill patients. However, more stringent targets may be selected in individual cases. Utilize slightly more stringent goal of 120-160 mg/dL as carb ratio won't be useful till diet advanced. Will keep "low" end of goal range elevated to help prevent hypo. PLAN FOR INPATIENT GLYCEMIC CONTROL: * Basal insulin * Continue Lantus 12 units SQ HS (outpatient dosing is 25 units HS, reduced inhouse dosing for decreased PO intake) * Bolus insulin * NO CHANGE, NovoLog per scale ACHS or Q6hrs while NPO * Goal Range: Low 120 mg/dL - High 160 mg/dL * Correction Factor: 20 mg/dL/unit * Nutritional / Prandial insulin per carb ratio of 1 unit per 6 grams CHO consumed * Please note that the plan above was derived based on current level of insulin resistance and hospital stress. These recommendations are appropriate for inpatient admission only. Plan of care upon discharge will need to be reassessed to avoid potential outpatient hypo/hyperglycemia. Thank you.
[2016-09-09 14:54] VITALS: BP 166/99; PULSE 102; TEMP 37.4; O2SAT 100
[2016-09-09 19:31] VITALS: BP 149/88; PULSE 114; TEMP 37; O2SAT 95
[2016-09-09] MEDS: INSULIN GLARGINE SOLOSTAR 100 UNITS/ML 3 ML PEN SC SCH (20:43)
[2016-09-09] MEDS: ENOXAPARIN 40 MG/0.4 ML SYR SQ SCH (20:45)
[2016-09-09 23:00] VITALS: BP 142/75; PULSE 113; TEMP 37.6; O2SAT 95
--- NOTE | 2016-09-09 23:15 | Progress Note ---
Medicine Progress Note Date & Time of Visit: September 09, 2016 at 12:54. Subjective 51 year old male undergoing chemotherapy presents to the ED complaining of vomiting x 5 days -still had two episodes of vomiting assoc with dizziness unless he kneels -otherwise he is tolerating regular food pretty well -worsened cough today that is non-productive -WBC continues to improve -patient continues to state that he has pain all over -we discussed realistically we won't get him to a pain level of zero, but we needed to get him to something manageable. Objective Last 8 Hrs Date Time Temp Pulse Resp B/P Pulse Ox O2 Delivery O2 Flow Rate FiO2 09/09/16 08:00 Room Air 09/09/16 07:15 37.1 98 20 169/93 96 Room Air Physical Exam: GEN: WNWD, not ill-appearing, alert and appropriate, sitting at bedside eating a salad and conversing with his father HEENT: swollen lower lip on R side, normal sclerae, mucous membranes are moist LUNGS: CTA bilaterally, no crackles, rales or wheezes, good diaphragmatic excursion ABD: soft, non-tender except over old scar tissue on LLQ (chronically tender per patient), non-distended, no rebound or guarding, +BS EXTREMITY: no LE swelling or edema, extremities are warm and well-perfused NEURO: CN 2-12 grossly intact, no gross focal deficits. MUSC: nonfocal, moves all extremities equally SKIN: warm and dry, red birthmark on L forearm. Laboratory Results: 09/09/16 05:15 Red Blood Count 2.94, Mean Corpuscular Volume 82.0, Mean Corpuscular Hemoglobin 29.3, Mean Corpuscular Hemoglobin Concent 35.7, Mean Platelet Volume 9.2, Neutrophils (%) (Auto) 28.7, Lymphocytes (%) (Auto) 54.0, Monocytes (%) (Auto) 7.1, Eosinophils (%) (Auto) 10.2, Basophils (%) (Auto) 0.0, Neutrophils # (Auto ) 0.65, Lymphocytes # (Auto) 1.22, Monocytes # (Auto) 0.16, Eosinophils # (Auto ) 0.23, Basophils # (Auto) 0.00 09/09/16 05:15 Test 09/05/16 12:18 09/05/16 21:55 09/08/16 05:35 09/09/16 05:15 Toxic Vacuolation 1+ Total Bilirubin 0.8 mg/dl (0.2-1) Direct Bilirubin 0.2 mg/dl (0-0.2) Aspartate Amino Transf (AST/SGOT) 18 U/L (15-37) Alanine Aminotransferase (ALT/SGPT) 21 U/L (12-78) Alkaline Phosphatase 101 U/L (45-117) Total Protein 8.3 gm/dl (6.4-8.2) Albumin 3.6 gm/dl (3.4-5.0) Thyroid Stimulating Hormone (TSH) 0.732 uIu/ml (0.300-4.500) Free Thyroxine 1.44 ng/dl (0.80-1.60) Urine Color YELLOW Urine Appearance CLEAR (CLEAR) Urine pH 5.0 (4.5-7.5) Urine Specific [place] 1.025 (1.000-1.030) Urine Protein 2+ (NEG) Urine Glucose (UA) 3+ (NEG) Urine Ketones 1+ (NEG) Urine Occult Blood 1+ (NEG) Urine Nitrite NEG (NEG) Urine Bilirubin NEG (NEG) Urine Urobilinogen NEG (NEG) Urine Leukocyte Esterase NEG (NEG) Urine WBC (Auto) 1-5 /hpf (0-5) Urine RBC (Auto) 0-4 /hpf (0-4) Urine Hyaline Casts (Auto) 1-5 /lpf (0-5) Urine Epithelial Cells (Auto) 5-10 /lpf (0-5) Urine Bacteria (Auto) NEG (NEG) Platelet Estimate DECREASED White Blood Count 2.26 K/uL (4.8-10.8) Red Blood Count 2.94 M/uL (4.7-6.1) Hemoglobin 8.6 g/dL (14.0-18.0) Hematocrit 24.1 % (42-52) Mean Corpuscular Volume 82.0 fL (80-100) Mean Corpuscular Hemoglobin 29.3 pg (25-34) Mean Corpuscular Hemoglobin Concent 35.7 g/dl (32-36) Platelet Count 73 K/uL (130-400) Mean Platelet Volume 9.2 fL (7.4-10.4) Neutrophils (%) (Auto) 28.7 % Lymphocytes (%) (Auto) 54.0 % Monocytes (%) (Auto) 7.1 % Eosinophils (%) (Auto) 10.2 % Basophils (%) (Auto) 0.0 % Neutrophils # (Auto) 0.65 K/uL (1.4-6.5) Lymphocytes # (Auto) 1.22 K/uL (1.2-3.4) Monocytes # (Auto) 0.16 K/uL (0.11-0.59) Eosinophils # (Auto) 0.23 K/uL (0-0.5) Basophils # (Auto) 0.00 K/uL (0-0.2) RDW Standard Deviation 46.6 fL (36.4-46.3) RDW Coefficient of Variation 15.6 % (11.5-14.5) Immature Granulocyte % (Auto) 0.0 % Immature Granulocyte # (Auto) 0.00 K/uL (0.00-0.02) Toxic Granulation 3+ Dohle Bodies 2+ Anion Gap 3.0 mmol/L (3-11) Est Creatinine Clear Calc Drug Dose 71.4 ml/min Estimated GFR () 80.7 Estimated GFR (Non- 69.6 BUN/Creatinine Ratio 10.8 (10-20) Calcium Level 8.5 mg/dl (8.5-10.1) Magnesium Level 2.1 mg/dl (1.8-2.4) Test 09/09/16 20:21 Bedside Glucose 221 mg/dl (70-99) Date/Time Source Procedure Growth Status 09/05/16 12:57 Blood Blood Culture - Preliminary NO GROWTH TO DATE. Resulted Last 24 Hours Test 09/08/16 16:53 09/08/16 20:09 09/09/16 05:15 09/09/16 07:30 Bedside Glucose 136 mg/dl 139 mg/dl 139 mg/dl White Blood Count 2.26 K/uL Red Blood Count 2.94 M/uL Hemoglobin 8.6 g/dL Hematocrit 24.1 % Mean Corpuscular Volume 82.0 fL Mean Corpuscular Hemoglobin 29.3 pg Mean Corpuscular Hemoglobin Concent 35.7 g/dl Platelet Count 73 K/uL Mean Platelet Volume 9.2 fL Neutrophils (%) (Auto) 28.7 % Lymphocytes (%) (Auto) 54.0 % Monocytes (%) (Auto) 7.1 % Eosinophils (%) (Auto) 10.2 % Basophils (%) (Auto) 0.0 % Neutrophils # (Auto) 0.65 K/uL Lymphocytes # (Auto) 1.22 K/uL Monocytes # (Auto) 0.16 K/uL Eosinophils # (Auto) 0.23 K/uL Basophils # (Auto) 0.00 K/uL RDW Standard Deviation 46.6 fL RDW Coefficient of Variation 15.6 % Immature Granulocyte % (Auto) 0.0 % Immature Granulocyte # (Auto) 0.00 K/uL Toxic Granulation 3+ Dohle Bodies 2+ Sodium Level 140 mmol/L Potassium Level 4.5 mmol/L Chloride Level 103 mmol/L Carbon Dioxide Level 34 mmol/L Anion Gap 3.0 mmol/L Blood Urea Nitrogen 13 mg/dl Creatinine 1.20 mg/dl Est Creatinine Clear Calc Drug Dose 71.4 ml/min Estimated GFR () 80.7 Estimated GFR (Non- 69.6 BUN/Creatinine Ratio 10.8 Random Glucose 131 mg/dl Calcium Level 8.5 mg/dl Magnesium Level 2.1 mg/dl Test 09/09/16 11:46 Bedside Glucose 196 mg/dl Assessment & Plan 51 year old male undergoing chemotherapy presents to the ED complaining of vomiting x 5 days INTRACTABLE CHEMO INDUCED NAUSEA/VOMITING -supportive care methods including pain meds, antiemetics and IVF -although still vomiting he is keeping some food down and is able to ambulate around the floor independently -cont Zofran scheduled ANEMIA -s/p 2 U PRBCs this admission with good response -there is an element of hemodilution with the ongoing IVF at 125mls/hr over the last couple of days -IVFs were stopped yesterday NEUTROPENIA/LEUKOPENIA -WBC count improved -Recent chemo on 08/30 -No documented fevers -CXR without signs of pneumonia despite cough that has been present for one day now, -no evidence of illness clinically at this time, encourage IS -blood cultures negative and UA benign -No indication for Abx at this time HYPOMAGNESEMIA-resolved ORTHOSTATIC HYPOTENSION -Secondary to dehydration in the setting of nausea/vomiting -fall precautions -bolus with IVF as needed -currently ambulating independently and appears clinically improved and stable. HYPERTENSION: -2/2 agitation and inability from nausea and chronic pain -PRN Hydralazine for SBP>180 -cont with Norvasc per home regimen -continue efforts with antiemetics and pain meds LUNG CA -ADENOCARCINOMA -Follows with Dr. Haynes -Received chemo on 08/30 -pain present "all over", started "15 years ago" worse since Sat (5 days ago) -Fentanyl and Dilaudid per pain management team-appreciate your recs--stopped IV Dilaudid PRN today and increased PO freq to help with breakthrough pain -cont bowel regimen CHRONIC PAIN 2/2 long-standing neuropathy and current situation with cancer on chemotherapy as above IDDM -with hyperglycemia -Not well controlled at baseline recent A1c 10.4 -SSI coverage/Lantus -pharmacy consulted for glycemic control DVT PROPHYLAXIS: Sq Lovenox CODE STATUS:FULL CODE DO Karol Sharpe Hospitalist Consultants: Heme/Onc, GI Current Inpatient Medications: Current Inpatient Medications Medications (Trade) Dose Ordered Sig/Cal Route Start Time Stop Time Status Last Admin Dose Admin Enoxaparin Sodium (Lovenox Inj) 40 mg Q24H SQ 09/05/16 21:00 10/05/16 20:59 09/08/16 20:45 40 MG Acetaminophen (Tylenol Tab) 650 mg Q4H PRN PO 09/05/16 14:45 10/05/16 14:44 Al Hydrox/Mg Hydrox/Simethicone (Maalox Max Susp) 15 ml Q4H PRN PO 09/05/16 14:45 10/05/16 14:44 Magnesium Hydroxide (Milk Of Magnesia Susp) 30 ml Q6H PRN PO 09/05/16 14:45 10/05/16 14:44 Polyethylene (Miralax Powder Packet) 17 gm DAILY PRN PO 09/05/16 14:45 10/05/16 14:44 Zolpidem Tartrate 5 mg 5 mg HSZ PRN PO 09/05/16 14:45 10/05/16 14:44 09/07/16 22:15 5 MG Promethazine HCl/ Sodium Chloride (Phenergan Inj/ Nss 50ml) 50.5 ml @ 204 mls/hr Q6H PRN IV 09/05/16 14:45 10/05/16 14:44 09/09/16 08:21 204 MLS/HR Insulin Aspart (novoLOG ASPART) SLIDING SCALE If C... ACHS SC 09/05/16 16:00 10/05/16 15:59 09/09/16 12:23 7 UNITS Glucose (Glucose 40% Gel) 15-30 GRAMS 15 GRAMS... UD PRN PO 09/05/16 14:45 10/05/16 14:44 Glucose (Glucose Chew Tab) 4-8 Tablets 4 Tabl... UD PRN PO 09/05/16 14:45 10/05/16 14:44 Dextrose (Dextrose 50% 50ML Syringe) 25-50ML OF 50% DW IV FOR... UD PRN IV 09/05/16 14:45 10/05/16 14:44 Glucagon (Glucagon Inj) 1 mg UD PRN SQ 09/05/16 14:45 10/05/16 14:44 Miscellaneous Information (Consult Glycemic Management Pharmacy) 1 ea UD PRN N/A 09/05/16 14:51 10/05/16 14:50 Aspirin (Ecotrin Tab) 81 mg QAM PO 09/06/16 08:00 10/06/16 08:59 09/09/16 08:22 81 MG Gabapentin (Neurontin Cap) 600 mg TID PO 09/05/16 20:00 10/05/16 20:59 09/09/16 08:22 600 MG Hydromorphone HCl (Dilaudid Tab) 8 mg Q8H PRN PO 09/05/16 15:00 09/19/16 14:59 Future Hold Magnesium Chloride (Slow-Mag Tab) 64 mg BID PO 09/05/16 20:00 10/05/16 20:59 09/09/16 08:22 64 MG Amlodipine Besylate (Norvasc Tab) 10 mg DAILY PO 09/06/16 08:00 10/06/16 08:59 09/09/16 08:22 10 MG Miscellaneous Information 1 ea 1 ea QS N/A 09/06/16 00:00 10/06/16 00:00 09/09/16 08:05 1 EA Pantoprazole Sodium/Syringe (Protonix Inj/ Syringe) 10 ml @ 5 mls/min DAILY@09,21 IV 09/06/16 21:00 10/06/16 20:59 09/09/16 08:22 5 MLS/MIN Hydralazine HCl (HydrALAZINE INJ) 5 mg Q6H PRN IV. 09/06/16 22:00 10/06/16 21:59 Hydromorphone HCl (Dilaudid Inj) 0.5 mg Q4H PRN IV 09/06/16 15:50 09/20/16 15:49 09/09/16 08:22 0.5 MG Fentanyl (Duragesic Patch) 25 mcg Q48H TD 09/07/16 08:30 09/21/16 08:29 09/09/16 08:21 25 MCG Miscellaneous (Fentanyl Patch Remove & Waste) 1 ea Q48H N/A 09/10/16 08:29 10/10/16 08:28 Miscellaneous Information (Check Fentanyl Patch Placement) 1 ea QS N/A 09/07/16 16:00 10/07/16 15:59 09/09/16 08:05 1 EA Hydromorphone HCl (Dilaudid Tab) 4 mg Q4H PRN PO 09/07/16 08:00 09/21/16 07:59 09/09/16 11:51 4 MG Fentanyl (Duragesic Patch) 100 mcg Q48H TD 09/07/16 08:30 09/21/16 08:29 09/09/16 08:21 100 MCG Miscellaneous 1 ea 1 ea Q48H N/A 09/07/16 08:29 10/07/16 08:28 09/09/16 08:08 1 EA Ondansetron HCl/ Dextrose (Zofran Inj/D5 50ml) 54 ml @ 216 mls/hr Q8H IV 09/07/16 10:00 10/07/16 09:59 09/09/16 09:49 216 MLS/HR Insulin Glargine (Lantus Solostar Pen) 12 unit HS SC 09/08/16 21:00 10/08/16 20:59 09/08/16 22:15 12 UNIT
[2016-09-10] VITALS (16 sets, daily range): BP systolic 107–171; BP diastolic 67–90; PULSE 92–119; TEMP 37–38.3; O2SAT 93–100
[2016-09-10] MEDS: HYDROmorphone HCL 2 MG TAB PO PRN ×5 (01:16→20:30)
[2016-09-10] MEDS: ZOLPIDEM TARTRATE 5 MG TAB PO PRN ×2 (01:17→22:51)
[2016-09-10] MEDS: ONDANSETRON INJ 8 MG in DEXTROSE 5% 50ML 50 ML IV SCH ×3 (02:04→18:39)
[2016-09-10] MEDS: INSULIN ASPART 100 UNITS/ML 3 ML PEN SC SCH ×4 (06:30→20:44)
[2016-09-10] MEDS: CHECK FENTANYL PATCH PLACEMENT SCH ×6 (07:50→23:40)
[2016-09-10 07:53] LABS: BUN/CREATININE RATIO 10.8 (10-20); CREATININE 1.3 mg/dl (0.60-1.40); POTASSIUM 3.8 mmol/L (3.5-5.1)
[2016-09-10 08:00] LABS: HEMATOCRIT 19.4 % (42-52); MEAN CELL VOLUME 82.2 fL (80-100); MEAN CORPUSCULAR HEMOGLOBIN 29.2 pg (25-34); MEAN CORPUSCULAR HGB CONC 35.6 g/dl (32-36); MEAN PLATELET VOLUME 10.2 fL (7.4-10.4); PLATELET COUNT 54 K/uL (130-400); RED BLOOD COUNT 2.36 M/uL (4.7-6.1); WHITE BLOOD COUNT 2.65 K/uL (4.8-10.8)
[2016-09-10 08:15] LABS: BASO ABS # 0.02 K/uL (0-0.2); BASOPHIL % 0.9 % (0-2); COMPLETE YES; EOSINOPHIL % 6.3 %; LYMPH ABS # 1.16 K/uL (1.2-3.4); LYMPHOCYTE % 43.8 %; NEUTROPHILS % 43.6 %; TOXIC GRANULATION 2+
[2016-09-10] MEDS: PROMETHAZINE HCL INJ 12.5 MG in SODIUM CHLORIDE 0.9% 50ML 50 ML IV PRN (08:18)
[2016-09-10] MEDS: PANTOprazole INJ 40 MG in SYRINGE 0 ML IV SCH ×2 (08:18→20:30)
[2016-09-10] MEDS: AMLODIPINE BESYLATE 5 MG TAB PO SCH (08:19)
[2016-09-10] MEDS: GABAPENTIN 300 MG CAP PO SCH ×3 (08:19→20:31)
[2016-09-10] MEDS: MAGNESIUM CHLORIDE 64MG DELAYED REL TAB PO SCH ×2 (08:19→20:32)
[2016-09-10] MEDS: ASPIRIN 81 MG ECTAB PO SCH (08:19)
[2016-09-10] MEDS ORDERED: FENTANYL PATCH REMOVE & WASTE SCH (08:29)
[2016-09-10] MEDS ORDERED: ACETAMINOPHEN 325 MG TAB PO SCH (09:00)
[2016-09-10] MEDS ORDERED: FUROSEMIDE INJ 20 MG in SYRINGE 0 ML IV SCH (10:00)
--- NOTE | 2016-09-10 10:59 | Pharmacy Progress Note ---
Glycemic Control: Progress Nt Date of Service September 10, 2016. Scope Glycemic Pharmacist consulted by Isabella Watkins on 08/15/16 for glycemic control and to write orders per [facility] inpatient glycemic control protocol. Objective Accuchecks BSG (last 24hrs): Test 09/09/16 11:46 09/09/16 15:45 09/09/16 20:21 09/10/16 06:00 Bedside Glucose 196 mg/dl (70-99) 116 mg/dl (70-99) 221 mg/dl (70-99) Random Glucose 137 mg/dl (70-99) Test 09/10/16 07:35 Bedside Glucose 135 mg/dl (70-99) Laboratory Data (last 24hrs) Test 09/10/16 06:00 Anion Gap 5.0 mmol/L BUN/Creatinine Ratio 10.8 Blood Urea Nitrogen 14 mg/dl Creatinine 1.30 mg/dl Potassium Level 3.8 mmol/L Sodium Level 137 mmol/L White Blood Count 2.65 K/uL Red Blood Count 2.36 M/uL Hemoglobin 6.9 g/dL Hematocrit 19.4 % Mean Corpuscular Volume 82.2 fL Mean Corpuscular Hemoglobin 29.2 pg Mean Corpuscular Hemoglobin Concent 35.6 g/dl Platelet Count 54 K/uL Mean Platelet Volume 10.2 fL Recent Pertinent Medications Outpatient Anti-diabetic Regimen: * Lantus 25 units HS, Humalog CF = 10 * A1c = 10.4 % from 08/06/16 Risk Factors for Insulin Resistance: * Steroids: Decadron pre/post chemo * IVF: Lasix IV * Diet: DM2 --> NPO after midnight tonight Assessment & Plan ASSESSMENT: * ADA & AACE recommend a goal blood sugar range 140-180 mg/dl for the majority of critically ill & non-critically ill patients. However, more stringent targets may be selected in individual cases. 09/09/16: * 51 yo T2D M admitted with N/V, known to the glycemic service from most recent admission earlier this month * Total daily dose ~ 50 units per previous admission when tolerating a full PO diet * Total daily dose of insulin continues to decrease d/t decreased PO intake [ 27 units on 09/06 --> 17 units on 09/07 --> 12 units on 09/08] * 12 units basal insulin * 0 units correctional insulin * 0 units of prandial insulin * Regimen is weighted towards basal insulin but that is because no prandial coverage is being given (while essentially NPO, pt ordered diet but not eating well) * AM fasting BSG in goal range per inpatient targets this morning @ 139mg/dl with basal insulin dose reduction yesterday. No changes needed today. 09/10/16: * BSGs are adequately controlled on current DM regimen. * Of note, the pt is made NPO at midnight tonight (prep for procedure with pain management?). However, will continue current Lantus dose. I suspect the pt will tolerate the Lantus dose currently ordered because PO intake has been minimal on this dose anyway. * No changes will be made to inpatient DM regimen today. PLAN FOR INPATIENT GLYCEMIC CONTROL: * Basal insulin with LANTUS 12 units SQ HS * Correctional Insulin with NOVOLOG per scale ACHS or Q6hrs while NPO * Goal Range: Low 120 mg/dL - High 160 mg/dL * Correction Factor: 20 mg/dL/unit * Nutritional / Prandial insulin per carb ratio of 1 unit per 7 grams CHO consumed * Please note that the plan above was derived based on current level of insulin resistance and hospital stress. These recommendations are appropriate for inpatient admission only. Plan of care upon discharge will need to be reassessed to avoid potential outpatient hypo/hyperglycemia. Thank you.
--- NOTE | 2016-09-10 11:35 | PROGRESS NOTE ---
DATE: 09/10/2016 INPATIENT FOLLOWUP NOTE CHIEF COMPLAINT: Chronic intractable neuropathic pain and lung cancer with recent chemotherapy 08/30/2016. HISTORY OF PRESENT ILLNESS: I saw 51-year-old Mr. Jeff Hamilton today at the [facility]. He has a history of lung cancer with most recent chemotherapy on 08/30/2016. He continues to have poor pain control of his chronic polyneuropathy of 17 years duration secondary to diabetes. He previously was utilizing hydromorphone intrathecal pump but had it explanted a number of years prior. Currently, for pain, he has been utilizing fentanyl patches 125 mcg q. 48 hours as well as hydromorphone 4 mg p.o. q. 2. He reports a better efficacy with IV hydromorphone at this time. He is utilizing gabapentin 600 mg p.o. t.i.d. for adjuvant pain control. He reports that his pain typically ranges between 7 and 9/10. Nothing seems to make the pain worse or better. He continues to note his pain is dysesthetic and noted as paresthesias and predominant bilateral lower extremities, but does have some upper extremity component. He denies any new neurologic deficits, bowel or bladder incontinence, motor weakness, footdrop or falls. He has had decreasing platelets over the last 3-4 days and currently they are at 54,000. AST MEDICAL, PAST SURGICAL, FAMILY AND SOCIAL HISTORY: Reviewed. MEDICATIONS AND ALLERGIES: Reconciled as per EMR. REVIEW OF SYSTEMS: A 10-point review of systems is negative aside from HPI. PHYSICAL EXAMINATION: VITAL SIGNS: Blood pressure is 134/81, pulse 100, respirations 18, temperature 37.8 degrees centigrade, 96% pulse oximetry on room air. GENERAL: He appears his stated age of [age] years old, is awake, alert and oriented x3, appearing in no acute distress with appropriate speech and thought processes and clear sensorium. HEENT: He has a swollen right lower lip. No evidence of bruising or erythema. NEUROLOGIC: He has diminished sensation to sharp and dull in bilateral lower extremities in a nondermatomal fashion with range of motion appropriate without limitation. He has 5/5 strength in bilateral upper and lower extremities equal throughout. Cranial nerves are grossly intact. Gait was not witnessed. ASSESSMENT: 1. Chronic intractable pain secondary to diabetic polyneuropathy. 2. Intractable nausea and vomiting secondary to chemotherapy. 3. Lung cancer status post left lobectomy with most recent chemotherapy dose of 08/30/2016. 4. Pancytopenia. 5. History of gastroparesis, status post gastric stimulator implantation. TREATMENT: 1. Given his consistent nausea and lack of pain control on oral and transdermal medications and good efficacy with prior hydromorphone intrathecal pump, will plan for a single shot hydromorphone trial tomorrow after platelet infusion and CBC confirms acceptable platelet count. 2. He will be made n.p.o. after midnight in preparation for the procedure and will spend 18 hours in monitor bed post-procedure. 3. He should continue gabapentin 600 mg p.o. t.i.d. 4. Provided that he has adequate pain relief during the trial of hydromorphone would plan for implantation, hopefully early next week. 5. Will hold lovenox tonight in preparation for IT trial tomorrow morning. SCD order written. Thank you very much for this consultation. AMILCAR
[2016-09-10] MEDS: HYDROmorphone INJ 0.5 MG/0.5 ML SYR IV PRN ×2 (13:09→17:31)
--- NOTE | 2016-09-10 13:25 | Gastroenterology Progress Note ---
Progress Note Date of Service: September 10, 2016 Subjective Pt evaluation today including: conversation w/ patient, physical exam, chart review, lab review, review of studies, review of inpatient medication list Mr. Hamilton is a 51 yr old male admitted with nausea/vomiting. He carries a hx of gastroparesis with a gastric pacer and is on chemotherapy for lung cancer, most recently about a week ago. He tells me that he continues with some nausea/ vomiting but Emend improved his symptoms. He is sitting up on the, also walking in the room and is receiving blood for anemia, Hb 6.9. No evidence of GI bleeding. Review of Systems Constitutional: + problem reported (chronic myalgias), No fever ENT: No hearing loss Respiratory: No cough Cardiac: No chest pain Abdomen: + nausea, + vomiting, No pain Male : No dysuria Neuro: No memory loss Psych: No depression symptoms Heme: + problem reported (bruised lip from bumping it on the siderail) Endo: No fatigue Skin: No rash Medications Current Inpatient Medications Medications (Trade) Dose Ordered Sig/Cal Route Start Time Stop Time Status Last Admin Dose Admin Enoxaparin Sodium (Lovenox Inj) 40 mg Q24H SQ 09/05/16 21:00 10/05/16 20:59 Future hold 09/09/16 20:45 40 MG Acetaminophen (Tylenol Tab) 650 mg Q4H PRN PO 09/05/16 14:45 10/05/16 14:44 Al Hydrox/Mg Hydrox/Simethicone (Maalox Max Susp) 15 ml Q4H PRN PO 09/05/16 14:45 10/05/16 14:44 Magnesium Hydroxide (Milk Of Magnesia Susp) 30 ml Q6H PRN PO 09/05/16 14:45 10/05/16 14:44 Polyethylene (Miralax Powder Packet) 17 gm DAILY PRN PO 09/05/16 14:45 10/05/16 14:44 Zolpidem Tartrate 5 mg 5 mg HSZ PRN PO 09/05/16 14:45 10/05/16 14:44 09/10/16 01:17 5 MG Promethazine HCl/ Sodium Chloride (Phenergan Inj/ Nss 50ml) 50.5 ml @ 204 mls/hr Q6H PRN IV 09/05/16 14:45 10/05/16 14:44 09/10/16 08:18 204 MLS/HR Insulin Aspart (novoLOG ASPART) SLIDING SCALE If C... ACHS SC 09/05/16 16:00 10/05/16 15:59 09/10/16 12:01 7 UNITS Glucose (Glucose 40% Gel) 15-30 GRAMS 15 GRAMS... UD PRN PO 09/05/16 14:45 10/05/16 14:44 Glucose (Glucose Chew Tab) 4-8 Tablets 4 Tabl... UD PRN PO 09/05/16 14:45 10/05/16 14:44 Dextrose (Dextrose 50% 50ML Syringe) 25-50ML OF 50% DW IV FOR... UD PRN IV 09/05/16 14:45 10/05/16 14:44 Glucagon (Glucagon Inj) 1 mg UD PRN SQ 09/05/16 14:45 10/05/16 14:44 Miscellaneous Information (Consult Glycemic Management Pharmacy) 1 ea UD PRN N/A 09/05/16 14:51 10/05/16 14:50 Aspirin (Ecotrin Tab) 81 mg QAM PO 09/06/16 08:00 10/06/16 08:59 09/10/16 08:19 81 MG Gabapentin (Neurontin Cap) 600 mg TID PO 09/05/16 20:00 10/05/16 20:59 09/10/16 13:10 600 MG Magnesium Chloride (Slow-Mag Tab) 64 mg BID PO 09/05/16 20:00 10/05/16 20:59 09/10/16 08:19 64 MG Amlodipine Besylate 10 mg 10 mg DAILY PO 09/06/16 08:00 10/06/16 08:59 09/10/16 08:19 10 MG Pantoprazole Sodium/Syringe (Protonix Inj/ Syringe) 10 ml @ 5 mls/min DAILY@09,21 IV 09/06/16 21:00 10/06/16 20:59 09/10/16 08:18 5 MLS/MIN Hydralazine HCl (HydrALAZINE INJ) 5 mg Q6H PRN IV. 09/06/16 22:00 10/06/16 21:59 Fentanyl (Duragesic Patch) 25 mcg Q48H TD 09/07/16 08:30 5/19/17 08:29 09/09/16 08:21 25 MCG Miscellaneous Information (Check Fentanyl Patch Placement) 1 ea QS N/A 09/07/16 16:00 10/07/16 15:59 09/10/16 07:50 1 EA Fentanyl (Duragesic Patch) 100 mcg Q48H TD 09/07/16 08:30 09/21/16 08:29 09/09/16 08:21 100 MCG Miscellaneous 1 ea 1 ea Q48H N/A 09/07/16 08:29 10/07/16 08:28 09/09/16 08:08 1 EA Ondansetron HCl/ Dextrose (Zofran Inj/D5 50ml) 54 ml @ 216 mls/hr Q8H IV 09/07/16 10:00 10/07/16 09:59 09/10/16 09:29 216 MLS/HR Insulin Glargine (Lantus Solostar Pen) 12 unit HS SC 09/08/16 21:00 10/08/16 20:59 09/09/16 20:43 12 UNIT Hydromorphone HCl (Dilaudid Tab) 4 mg Q2H PRN PO 09/09/16 20:15 09/23/16 20:14 09/10/16 10:27 4 MG Acetaminophen 650 mg 650 mg TODAY@0900 PO 09/10/16 09:00 09/10/16 23:59 09/10/16 10:25 650 MG Furosemide/Syringe (Lasix Inj/ Syringe) 2 ml @ 4 mls/min TODAY@1000 IV 09/10/16 10:00 09/10/16 23:59 09/10/16 13:10 4 MLS/MIN Diphenhydramine HCl (Benadryl Cap) 25 mg TODAY@0900 PO 09/10/16 09:00 09/10/16 23:59 09/10/16 10:24 25 MG Hydromorphone HCl 0.5 mg 0.5 mg Q4H PRN IV 09/10/16 09:30 09/24/16 09:29 09/10/16 13:09 0.5 MG Hydromorphone HCl (HYDROmorphone HCL) 0.025 ml @ 0 mls/hr TODAY@0800 ONCE IT 09/11/16 08:00 09/11/16 08:01 Objective Vital Signs Date Time Temp Pulse Resp B/P Pulse Ox O2 Delivery O2 Flow Rate FiO2 09/10/16 13:10 37.8 98 18 107/67 98 09/10/16 12:10 37.8 95 18 130/75 99 09/10/16 11:40 37.5 94 18 135/70 96 09/10/16 11:10 37.8 94 18 132/83 99 09/10/16 10:55 37.0 101 18 127/86 09/10/16 10:55 37.0 101 18 127/86 09/10/16 10:34 37.8 100 18 134/81 96 09/10/16 08:00 Room Air 09/10/16 07:51 37.3 119 18 171/80 97 09/10/16 00:00 Room Air 09/09/16 23:00 37.6 113 18 142/75 95 Room Air 09/09/16 19:31 37.0 114 20 149/88 95 Room Air 09/09/16 16:20 Room Air 09/09/16 14:54 37.4 102 20 166/99 100 Physical Exam General Appearance: no apparent distress ENT: + pertinent finding (edematous lower lip) Neck: no JVD Respiratory/Chest: lungs clear Cardiovascular: regular rate, rhythm, no JVD, no murmur Abdomen: non tender, soft Extremities: normal inspection Neurologic/Psych: alert, normal mood/affect, oriented x 3 Skin: no jaundice Laboratory Results Last 24 Hours Test 09/09/16 15:45 09/09/16 20:21 09/10/16 06:00 09/10/16 07:35 Bedside Glucose 116 mg/dl 221 mg/dl 135 mg/dl White Blood Count 2.65 K/uL Red Blood Count 2.36 M/uL Hemoglobin 6.9 g/dL Hematocrit 19.4 % Mean Corpuscular Volume 82.2 fL Mean Corpuscular Hemoglobin 29.2 pg Mean Corpuscular Hemoglobin Concent 35.6 g/dl Platelet Count 54 K/uL Mean Platelet Volume 10.2 fL RDW Standard Deviation 45.7 fL RDW Coefficient of Variation 15.2 % Neutrophils % (Manual) 43.6 % Lymphocytes % (Manual) 43.8 % Monocytes % (Manual) 5.4 % Eosinophils % (Manual) 6.3 % Basophils % (Manual) 0.9 % Neutrophils # (Manual) 1.16 K/uL Total Absolute Neutrophils 1.16 K/uL Lymphocytes # (Manual) 1.16 K/uL Total Absolute Lymphocytes 1.16 K/uL Monocytes # (Manual) 0.14 K/uL Eosinophils # (Manual) 0.17 K/uL Basophils # (Manual) 0.02 K/uL Toxic Granulation 2+ Sodium Level 137 mmol/L Potassium Level 3.8 mmol/L Chloride Level 101 mmol/L Carbon Dioxide Level 31 mmol/L Anion Gap 5.0 mmol/L Blood Urea Nitrogen 14 mg/dl Creatinine 1.30 mg/dl Est Creatinine Clear Calc Drug Dose 65.9 ml/min Estimated GFR () 73.2 Estimated GFR (Non- 63.2 BUN/Creatinine Ratio 10.8 Random Glucose 137 mg/dl Calcium Level 8.0 mg/dl Test 09/10/16 11:28 Bedside Glucose 228 mg/dl Assessment and Plan Mr. Hamilton is a 51 yr old male with nausea/vomiting caused by gastroparesis and chemotherapy. He is also anemic w/o gross GI bleeding, likely secondary to chemotherapy. Plan: 1. Would repeat Emend every 3rd day during admission. 2. Had an EGD in Mar 2016, would not repeat unless begins with abdominal pain, worsening nausea/vomiting or if any evidence of active GI bleeding. 3. GI will watch peripherally. I saw and evaluated the patient. He notes his nausea is much better after the dose of emend given last week. At this point would recommend advancing his diet as tolerated. Please call with any questions or concerns as we will be signing off for the present time.
--- NOTE | 2016-09-10 18:20 | Progress Note ---
Medicine Progress Note Date & Time of Visit: September 10, 2016 at 17:59. Subjective 51 year old male undergoing chemotherapy presents to the ED complaining of vomiting x 5 days. Initially was neutropenic without fever, but now is febrile with ANC 1100. -dry cough still present today but reportedly improved -persistently vomiting today -states that his throat is sore more than anything -WBC up to 2.6 this am; ANC 1100 -pain still present but managed with patch and PO meds only -denies diarrhea, abdominal pain -2 U blood given today -febrile throughout the day today -declined full physical as he was eating his salad with , declined eval earlier in the day as he was in the restroom. Objective Last 8 Hrs Date Time Temp Pulse Resp B/P Pulse Ox O2 Delivery O2 Flow Rate FiO2 09/10/16 16:25 37.6 97 18 156/90 99 09/10/16 15:27 37.3 100 18 129/75 95 Room Air 09/10/16 15:25 38.3 94 18 125/72 94 09/10/16 14:55 37.3 100 18 129/75 95 09/10/16 14:25 37.2 93 18 129/72 95 09/10/16 14:25 37.2 93 18 129/72 95 09/10/16 14:10 37.5 108 18 139/77 100 09/10/16 13:55 38.0 92 18 128/77 95 09/10/16 13:10 37.8 98 18 107/67 98 09/10/16 12:10 37.8 95 18 130/75 99 09/10/16 11:40 37.5 94 18 135/70 96 09/10/16 11:10 37.8 94 18 132/83 99 09/10/16 10:55 37.0 101 18 127/86 09/10/16 10:55 37.0 101 18 127/86 09/10/16 10:34 37.8 100 18 134/81 96 Physical Exam: GEN: WNWD, not ill-appearing, alert and appropriate, sitting at bedside eating a salad and conversing with his father HEENT: swollen lower lip on R side, normal sclerae, mucous membranes are moist EXTREMITY: no LE swelling or edema, peripheral IV intact NEURO: CN 2-12 grossly intact, no gross focal deficits. MUSC: nonfocal, moves all extremities equally, ambulatory SKIN: red birthmark on L forearm. Laboratory Results: Test 09/05/16 12:18 09/05/16 21:55 09/08/16 05:35 09/09/16 05:15 Toxic Vacuolation 1+ Direct Bilirubin 0.2 mg/dl (0-0.2) Thyroid Stimulating Hormone (TSH) 0.732 uIu/ml (0.300-4.500) Free Thyroxine 1.44 ng/dl (0.80-1.60) Urine Color YELLOW Urine Appearance CLEAR (CLEAR) Urine pH 5.0 (4.5-7.5) Urine Specific Patriot 1.025 (1.000-1.030) Urine Protein 2+ (NEG) Urine Glucose (UA) 3+ (NEG) Urine Ketones 1+ (NEG) Urine Occult Blood 1+ (NEG) Urine Nitrite NEG (NEG) Urine Bilirubin NEG (NEG) Urine Urobilinogen NEG (NEG) Urine Leukocyte Esterase NEG (NEG) Urine WBC (Auto) 1-5 /hpf (0-5) Urine RBC (Auto) 0-4 /hpf (0-4) Urine Hyaline Casts (Auto) 1-5 /lpf (0-5) Urine Epithelial Cells (Auto) 5-10 /lpf (0-5) Urine Bacteria (Auto) NEG (NEG) Platelet Estimate DECREASED Immature Granulocyte % (Auto) 0.0 % White Blood Count 2.26 K/uL (4.8-10.8) Red Blood Count 2.94 M/uL (4.7-6.1) Hemoglobin 8.6 g/dL (14.0-18.0) Hematocrit 24.1 % (42-52) Mean Corpuscular Volume 82.0 fL (80-100) Mean Corpuscular Hemoglobin 29.3 pg (25-34) Mean Corpuscular Hemoglobin Concent 35.7 g/dl (32-36) Platelet Count 73 K/uL (130-400) Mean Platelet Volume 9.2 fL (7.4-10.4) Neutrophils (%) (Auto) 28.7 % Lymphocytes (%) (Auto) 54.0 % Monocytes (%) (Auto) 7.1 % Eosinophils (%) (Auto) 10.2 % Basophils (%) (Auto) 0.0 % Neutrophils # (Auto) 0.65 K/uL (1.4-6.5) Lymphocytes # (Auto) 1.22 K/uL (1.2-3.4) Monocytes # (Auto) 0.16 K/uL (0.11-0.59) Eosinophils # (Auto) 0.23 K/uL (0-0.5) Basophils # (Auto) 0.00 K/uL (0-0.2) Immature Granulocyte # (Auto) 0.00 K/uL (0.00-0.02) Dohle Bodies 2+ Magnesium Level 2.1 mg/dl (1.8-2.4) Test 09/10/16 06:00 09/10/16 16:00 09/10/16 17:41 RDW Standard Deviation 45.7 fL (36.4-46.3) RDW Coefficient of Variation 15.2 % (11.5-14.5) White Blood Count 2.65 K/uL (4.8-10.8) Red Blood Count 2.36 M/uL (4.7-6.1) Hemoglobin 6.9 g/dL (14.0-18.0) Hematocrit 19.4 % (42-52) Mean Corpuscular Volume 82.2 fL (80-100) Mean Corpuscular Hemoglobin 29.2 pg (25-34) Mean Corpuscular Hemoglobin Concent 35.6 g/dl (32-36) Platelet Count 54 K/uL (130-400) Mean Platelet Volume 10.2 fL (7.4-10.4) Neutrophils % (Manual) 43.6 % Lymphocytes % (Manual) 43.8 % Monocytes % (Manual) 5.4 % Eosinophils % (Manual) 6.3 % Basophils % (Manual) 0.9 % (0-2) Neutrophils # (Manual) 1.16 K/uL (1.4-6.5) Total Absolute Neutrophils 1.16 K/uL (1.4-6.5) Lymphocytes # (Manual) 1.16 K/uL (1.2-3.4) Total Absolute Lymphocytes 1.16 K/uL (1.2-3.4) Monocytes # (Manual) 0.14 K/uL (0.11-0.59) Eosinophils # (Manual) 0.17 K/uL (0-0.5) Basophils # (Manual) 0.02 K/uL (0-0.2) Toxic Granulation 2+ Est Creatinine Clear Calc Drug Dose 65.9 ml/min Bedside Glucose 90 mg/dl (70-99) Date/Time Source Procedure Growth Status 09/10/16 17:25 Blood Blood Culture Pending Edgard Batch Last 24 Hours Test 09/09/16 20:21 09/10/16 06:00 09/10/16 07:35 09/10/16 11:28 Bedside Glucose 221 mg/dl 135 mg/dl 228 mg/dl White Blood Count 2.65 K/uL Red Blood Count 2.36 M/uL Hemoglobin 6.9 g/dL Hematocrit 19.4 % Mean Corpuscular Volume 82.2 fL Mean Corpuscular Hemoglobin 29.2 pg Mean Corpuscular Hemoglobin Concent 35.6 g/dl Platelet Count 54 K/uL Mean Platelet Volume 10.2 fL RDW Standard Deviation 45.7 fL RDW Coefficient of Variation 15.2 % Neutrophils % (Manual) 43.6 % Lymphocytes % (Manual) 43.8 % Monocytes % (Manual) 5.4 % Eosinophils % (Manual) 6.3 % Basophils % (Manual) 0.9 % Neutrophils # (Manual) 1.16 K/uL Total Absolute Neutrophils 1.16 K/uL Lymphocytes # (Manual) 1.16 K/uL Total Absolute Lymphocytes 1.16 K/uL Monocytes # (Manual) 0.14 K/uL Eosinophils # (Manual) 0.17 K/uL Basophils # (Manual) 0.02 K/uL Toxic Granulation 2+ Sodium Level 137 mmol/L Potassium Level 3.8 mmol/L Chloride Level 101 mmol/L Carbon Dioxide Level 31 mmol/L Anion Gap 5.0 mmol/L Blood Urea Nitrogen 14 mg/dl Creatinine 1.30 mg/dl Est Creatinine Clear Calc Drug Dose 65.9 ml/min Estimated GFR () 73.2 Estimated GFR (Non- 63.2 BUN/Creatinine Ratio 10.8 Random Glucose 137 mg/dl Calcium Level 8.0 mg/dl Test 09/10/16 16:00 09/10/16 17:41 Bedside Glucose 90 mg/dl Date/Time Source Procedure Growth Status 09/10/16 17:25 Blood Blood Culture Pending Edgard Batch 09/10/16 17:25 Blood Blood Culture Pending Edgard Batch Assessment & Plan 51 year old male undergoing chemotherapy presents to the ED complaining of vomiting x 5 days IMMUNOSUPPRESSION WITH FEVER: -one documented fever last night then he was afebrile this morning, so it was considered sporadic -recent chemo on 08/30 -fevers continued prior to blood administration and he tolerated the blood today -states that he has been having nausea and vomiting all day and he wasn't able to sleep last night until he got his sleeping pill -otherwise he has been doing well with no acute complaints. -he states he still has a dry cough but that has gotten better since yesterday -his IV sites include one peripheral IV in the forearm which does not have signs of infection -he is not ill-appearing, denies diarrhea or abdominal pain, and he has been ambulating around the hallways with no difference in appearance for the last 3 days -his WBC has improved again to 2.65 with ANC 1100. -ordering Vanc and Aztreonam for empiric coverage and will consult ID for assistance with source in this high risk patient -repeating blood cultures, labwork, CXR, UA/UCx, and sputum culture INTRACTABLE CHEMO INDUCED NAUSEA/VOMITING -supportive care methods including pain meds, antiemetics -although still vomiting he is keeping some food down and is able to ambulate around the floor independently -cont Zofran scheduled ANEMIA -s/p 2 U PRBCs today -repeat CBC was ordered post-transfusion HYPERTENSION: -2/2 agitation from vomiting along with nausea and chronic pain -PRN Hydralazine for SBP>180 -cont with Norvasc per home regimen -continue efforts with antiemetics and pain meds LUNG CA -ADENOCARCINOMA -Follows with Dr. Haynes -Received chemo on 08/30 -pain present "all over", started "15 years ago" worse since Sat (5 days ago) -Fentanyl and Dilaudid per pain management team -cont bowel regimen CHRONIC PAIN 2/2 long-standing neuropathy and current situation with cancer on chemotherapy Fentanyl at increased dose and Dilaudid PO -plan for trial shot for ultimate intrathecal pump placement, however, with fever, I would wait until ID evaluates and says ok . We don't want to place a foreign object in him until he is afebrile and declared free of infection. IDDM -with hyperglycemia -Not well controlled at baseline recent A1c 10.4 -SSI coverage/Lantus -pharmacy consulted for glycemic control DVT PROPHYLAXIS: Sq Lovenox CODE STATUS:FULL CODE Idalmis Lares DO [facility] Hospitalist Consultants: Heme/Onc, GI, ID Current Inpatient Medications: Current Inpatient Medications Medications (Trade) Dose Ordered Sig/Cal Route Start Time Stop Time Status Last Admin Dose Admin Enoxaparin Sodium (Lovenox Inj) 40 mg Q24H SQ 09/05/16 21:00 10/05/16 20:59 Future hold 09/09/16 20:45 40 MG Acetaminophen (Tylenol Tab) 650 mg Q4H PRN PO 09/05/16 14:45 10/05/16 14:44 Al Hydrox/Mg Hydrox/Simethicone (Maalox Max Susp) 15 ml Q4H PRN PO 09/05/16 14:45 10/05/16 14:44 Magnesium Hydroxide (Milk Of Magnesia Susp) 30 ml Q6H PRN PO 09/05/16 14:45 10/05/16 14:44 Polyethylene (Miralax Powder Packet) 17 gm DAILY PRN PO 09/05/16 14:45 10/05/16 14:44 Zolpidem Tartrate 5 mg 5 mg HSZ PRN PO 09/05/16 14:45 10/05/16 14:44 09/10/16 01:17 5 MG Promethazine HCl/ Sodium Chloride (Phenergan Inj/ Nss 50ml) 50.5 ml @ 204 mls/hr Q6H PRN IV 09/05/16 14:45 10/05/16 14:44 09/10/16 08:18 204 MLS/HR Insulin Aspart (novoLOG ASPART) SLIDING SCALE If C... ACHS SC 09/05/16 16:00 10/05/16 15:59 09/10/16 17:43 5 UNITS Glucose (Glucose 40% Gel) 15-30 GRAMS 15 GRAMS... UD PRN PO 09/05/16 14:45 10/05/16 14:44 Glucose (Glucose Chew Tab) 4-8 Tablets 4 Tabl... UD PRN PO 09/05/16 14:45 10/05/16 14:44 Dextrose (Dextrose 50% 50ML Syringe) 25-50ML OF 50% DW IV FOR... UD PRN IV 09/05/16 14:45 10/05/16 14:44 Glucagon (Glucagon Inj) 1 mg UD PRN SQ 09/05/16 14:45 10/05/16 14:44 Miscellaneous Information (Consult Glycemic Management Pharmacy) 1 ea UD PRN N/A 09/05/16 14:51 10/05/16 14:50 Aspirin (Ecotrin Tab) 81 mg QAM PO 09/06/16 08:00 10/06/16 08:59 09/10/16 08:19 81 MG Gabapentin (Neurontin Cap) 600 mg TID PO 09/05/16 20:00 10/05/16 20:59 09/10/16 13:10 600 MG Magnesium Chloride (Slow-Mag Tab) 64 mg BID PO 09/05/16 20:00 10/05/16 20:59 09/10/16 08:19 64 MG Amlodipine Besylate 10 mg 10 mg DAILY PO 09/06/16 08:00 10/06/16 08:59 09/10/16 08:19 10 MG Pantoprazole Sodium/Syringe (Protonix Inj/ Syringe) 10 ml @ 5 mls/min DAILY@09,21 IV 09/06/16 21:00 10/06/16 20:59 09/10/16 08:18 5 MLS/MIN Hydralazine HCl (HydrALAZINE INJ) 5 mg Q6H PRN IV. 09/06/16 22:00 10/06/16 21:59 Fentanyl (Duragesic Patch) 25 mcg Q48H TD 09/07/16 08:30 09/21/16 08:29 09/09/16 08:21 25 MCG Miscellaneous Information (Check Fentanyl Patch Placement) 1 ea QS N/A 09/07/16 16:00 10/07/16 15:59 09/10/16 16:28 1 EA Fentanyl (Duragesic Patch) 100 mcg Q48H TD 09/07/16 08:30 09/21/16 08:29 09/09/16 08:21 100 MCG Miscellaneous 1 ea 1 ea Q48H N/A 09/07/16 08:29 10/07/16 08:28 09/09/16 08:08 1 EA Ondansetron HCl/ Dextrose (Zofran Inj/D5 50ml) 54 ml @ 216 mls/hr Q8H IV 09/07/16 10:00 10/07/16 09:59 09/10/16 09:29 216 MLS/HR Insulin Glargine (Lantus Solostar Pen) 12 unit HS SC 09/08/16 21:00 10/08/16 20:59 09/09/16 20:43 12 UNIT Hydromorphone HCl (Dilaudid Tab) 4 mg Q2H PRN PO 09/09/16 20:15 09/23/16 20:14 09/10/16 14:46 4 MG Acetaminophen 650 mg 650 mg TODAY@0900 PO 09/10/16 09:00 09/10/16 23:59 09/10/16 10:25 650 MG Furosemide/Syringe (Lasix Inj/ Syringe) 2 ml @ 4 mls/min TODAY@1000 IV 09/10/16 10:00 09/10/16 23:59 09/10/16 13:10 4 MLS/MIN Diphenhydramine HCl (Benadryl Cap) 25 mg TODAY@0900 PO 09/10/16 09:00 09/10/16 23:59 09/10/16 10:24 25 MG Hydromorphone HCl 0.5 mg 0.5 mg Q4H PRN IV 09/10/16 09:30 09/24/16 09:29 09/10/16 17:31 0.5 MG Hydromorphone HCl/ Syringe (HYDROmorphone HCL/Syringe) 0.25 ml @ 0 mls/hr TODAY@0800 ONCE IT 09/11/16 08:00 09/11/16 08:01
--- NOTE | 2016-09-10 18:38 | DIAGNOSTIC IMAGING REPORT ---
CHEST ONE VIEW PORTABLE CLINICAL HISTORY: fever in cancer patient with cough that is persistent dyspnea COMPARISON STUDY: 09/08/2016 FINDINGS: Persistent trace pleural fluid left base laterally. Lungs otherwise appear clear. Chronic atelectatic change left suprahilar region. Right lung is clear. IMPRESSION: Trace pleural fluid left base unchanged from the prior study. No acute process. Electronically signed by: Fuad Betancourt M.D. 09/10/2016 6:37 PM Dictated Date/Time: 09/10/2016 6:36 PM
[2016-09-10 19:04] LABS: HEMATOCRIT 26.6 % (42-52); MEAN CELL VOLUME 81.8 fL (80-100); MEAN CORPUSCULAR HEMOGLOBIN 28.3 pg (25-34); MEAN CORPUSCULAR HGB CONC 34.6 g/dl (32-36); RED BLOOD COUNT 3.25 M/uL (4.7-6.1); WHITE BLOOD COUNT 4.71 K/uL (4.8-10.8)
[2016-09-10] MEDS: AZTREONAM IV 2,000 MG in DEXTROSE 5% 100ML 100 ML IV SCH (19:29)
[2016-09-10 19:31] LABS: BUN/CREATININE RATIO 9.5 (10-20); CALCIUM 8.5 mg/dl (8.5-10.1); CREATININE 1.7 mg/dl (0.60-1.40); POTASSIUM 3.8 mmol/L (3.5-5.1)
[2016-09-10 19:41] LABS: ALB/GLOB RATIO 0.8 (0.9-2)
[2016-09-10 19:43] LABS: COMPLETE YES; DOHLE BODIES 2+; EOSINOPHIL % 1.7 %; LYMPH ABS # 1.38 K/uL (1.2-3.4); LYMPHOCYTE % 29.3 %; MEAN PLATELET VOLUME 10.5 fL (7.4-10.4); MYELOCYTE % 0.9 %; NEUTROPHILS % 59.5 %; PLATELET COUNT 52 K/uL (130-400); PLT ESTIMATE DECREASED; TOXIC GRANULATION 3+
[2016-09-10] MEDS ORDERED: VANCOMYCIN INJ 2,000 MG in SODIUM CHLORIDE 0.9% 500ML 500 ML IV ONE (20:00)
--- NOTE | 2016-09-10 20:21 | Pharmacy Progress Note ---
Pharmacy Antibiotic Consult Date of Service: September 10, 2016. Pharmacy Dosing Scope Pharmacy is consulted to initiate Vancomycin IV dosing therapy, order appropriate labs and adjust drug dose/frequency. Subjective The patient is a 51 year old male admitted on September 05, 2016 at 14:36 now empirically starting IV Aztreonam and IV Vancomycin for febrile neutropenic fever. Objective Height (Feet): 5 Height (Inches): 5.00 Weight (Kilograms): 81.100 Lab Results (24hrs): Test 09/10/16 06:00 09/10/16 11:28 09/10/16 16:00 09/10/16 18:45 White Blood Count 2.65 K/uL (4.8-10.8) 4.71 K/uL (4.8-10.8) Red Blood Count 2.36 M/uL (4.7-6.1) 3.25 M/uL (4.7-6.1) Hemoglobin 6.9 g/dL (14.0-18.0) 9.2 g/dL (14.0-18.0) Hematocrit 19.4 % (42-52) 26.6 % (42-52) Mean Corpuscular Volume 82.2 fL (80-100) 81.8 fL (80-100) Mean Corpuscular Hemoglobin 29.2 pg (25-34) 28.3 pg (25-34) Mean Corpuscular Hemoglobin Concent 35.6 g/dl (32-36) 34.6 g/dl (32-36) Platelet Count 54 K/uL (130-400) 52 K/uL (130-400) Mean Platelet Volume 10.2 fL (7.4-10.4) 10.5 fL (7.4-10.4) RDW Standard Deviation 45.7 fL (36.4-46.3) 44.3 fL (36.4-46.3) RDW Coefficient of Variation 15.2 % (11.5-14.5) 14.5 % (11.5-14.5) Neutrophils % (Manual) 43.6 % 59.5 % Lymphocytes % (Manual) 43.8 % 29.3 % Monocytes % (Manual) 5.4 % 8.6 % Eosinophils % (Manual) 6.3 % 1.7 % Basophils % (Manual) 0.9 % (0-2) Neutrophils # (Manual) 1.16 K/uL (1.4-6.5) 2.80 K/uL (1.4-6.5) Total Absolute Neutrophils 1.16 K/uL (1.4-6.5) 2.80 K/uL (1.4-6.5) Lymphocytes # (Manual) 1.16 K/uL (1.2-3.4) 1.38 K/uL (1.2-3.4) Total Absolute Lymphocytes 1.16 K/uL (1.2-3.4) 1.38 K/uL (1.2-3.4) Monocytes # (Manual) 0.14 K/uL (0.11-0.59) 0.41 K/uL (0.11-0.59) Eosinophils # (Manual) 0.17 K/uL (0-0.5) 0.08 K/uL (0-0.5) Basophils # (Manual) 0.02 K/uL (0-0.2) Toxic Granulation 2+ 3+ Sodium Level 137 mmol/L (136-145) 138 mmol/L (136-145) Potassium Level 3.8 mmol/L (3.5-5.1) 3.8 mmol/L (3.5-5.1) Chloride Level 101 mmol/L (98-107) 101 mmol/L (98-107) Carbon Dioxide Level 31 mmol/L (21-32) 31 mmol/L (21-32) Anion Gap 5.0 mmol/L (3-11) 6.0 mmol/L (3-11) Blood Urea Nitrogen 14 mg/dl (7-18) 16 mg/dl (7-18) Creatinine 1.30 mg/dl (0.60-1.40) 1.70 mg/dl (0.60-1.40) Est Creatinine Clear Calc Drug Dose 65.9 ml/min 50.4 ml/min Estimated GFR () 73.2 52.9 Estimated GFR (Non- 63.2 45.7 BUN/Creatinine Ratio 10.8 (10-20) 9.5 (10-20) Random Glucose 137 mg/dl (70-99) 102 mg/dl (70-99) Calcium Level 8.0 mg/dl (8.5-10.1) 8.5 mg/dl (8.5-10.1) Bedside Glucose 228 mg/dl (70-99) 90 mg/dl (70-99) Myelocytes % 0.9 % Myelocytes # 0.04 K/uL (0-0) Dohle Bodies 2+ Platelet Estimate DECREASED Total Bilirubin 0.5 mg/dl (0.2-1) Aspartate Amino Transf (AST/SGOT) 19 U/L (15-37) Alanine Aminotransferase (ALT/SGPT) 16 U/L (12-78) Alkaline Phosphatase 80 U/L (45-117) Total Protein 7.6 gm/dl (6.4-8.2) Albumin 3.3 gm/dl (3.4-5.0) Globulin 4.3 gm/dl (2.5-4.0) Albumin/Globulin Ratio 0.8 (0.9-2) Micro Results: Item Value Date Time Blood Culture Received 09/10/16 1851 Blood Pending Blood Culture Received 09/10/16 1845 Blood Pending Blood Culture - Preliminary Resulted 09/05/16 1257 Blood NO GROWTH TO DATE. Blood Culture - Preliminary Resulted 09/05/16 1218 Blood NO GROWTH TO DATE. Recent Pertinent Medications Item Value Date Time Vancomycin HCl 540 ml @ 200 mls/hr 09/10/16 2000 2000 mg/Sodium TODAY@2000 ONCE/IV Chloride Aztreonam 2000 mg/ 110 ml @ 100 mls/hr 09/10/16 1830 Dextrose Q8H/IV 09/10/16 1929 Assessment & Plan [age] yo male with febrile neutropenia after chemotherapy on 08/30 in the treatment of Lung Ca. Rising serum creatinine noted today with AM SCr 1.3 mg/ dL and this evening now at 1.7 mg/dl. Blood cultures from September 05 are negative thus far, however, were repeated today. Will give a standard Vancomycin IV loading dose however, will hold tomorrow AM dose until Scr assessed and AM random Vancomycin level is checked. Loading dose: Vancomycin 2000 mg (~25 mg/kg) IV X 1 dose then: Goal peak level estimate: between 30 - 40 mcg/mL. For febrile neutropenia will make Vancomycin Goal trough level between 15 - 20 mcg/mL. Vancomycin random level has been ordered for: Tomorrow with AM labs Pharmacy will continue to follow and will adjust dose/frequency as necessary. Thank you
[2016-09-10] MEDS: INSULIN GLARGINE SOLOSTAR 100 UNITS/ML 3 ML PEN SC SCH (20:43)
[2016-09-10 22:11] LABS: URINE APPEARANCE CLEAR (CLEAR); URINE BILIRUBIN NEG (NEG); URINE COLOR YELLOW; URINE EPITHELIAL CELL AUTO 0-5 /lpf (0-5); URINE NITRITE NEG (NEG); URINE SPECIFIC GRAVITY 1.013 (1.000-1.030); UROBILINOGEN NEG (NEG)
[2016-09-10 22:12] LABS: MANUAL MICROSCOPIC REQUIRED? NO; REVIEW REQ? NO
[2016-09-10] MEDS: HYDROmorphone INJ 1 MG/ML SYR IV PRN (22:51)
[2016-09-11] VITALS (12 sets, daily range): BP systolic 129–193; BP diastolic 74–113; PULSE 94–109; TEMP 36.7–38.2; O2SAT 93–100; BMI 30.5
[2016-09-11] MEDS: ACETAMINOPHEN 325 MG TAB PO PRN ×3 (00:07→16:52)
[2016-09-11] MEDS: ONDANSETRON INJ 8 MG in DEXTROSE 5% 50ML 50 ML IV SCH ×3 (02:19→17:14)
[2016-09-11] MEDS: AZTREONAM IV 2,000 MG in DEXTROSE 5% 100ML 100 ML IV SCH ×3 (02:19→19:04)
[2016-09-11] MEDS: HYDROmorphone HCL 2 MG TAB PO PRN ×8 (02:22→22:28)
[2016-09-11 04:54] LABS: HEMATOCRIT 24.3 % (42-52); MEAN CELL VOLUME 82.1 fL (80-100); MEAN CORPUSCULAR HEMOGLOBIN 29.4 pg (25-34); RED BLOOD COUNT 2.96 M/uL (4.7-6.1); WHITE BLOOD COUNT 4.97 K/uL (4.8-10.8)
[2016-09-11] MEDS: HYDROmorphone INJ 1 MG/ML SYR IV PRN ×4 (04:55→21:21)
[2016-09-11 05:18] LABS: BUN/CREATININE RATIO 12.1 (10-20); CALCIUM 8.2 mg/dl (8.5-10.1); CREATININE 1.4 mg/dl (0.60-1.40); MAGNESIUM 1.4 mg/dl (1.8-2.4); PHOSPHORUS 3.3 mg/dl (2.5-4.9); POTASSIUM 3.9 mmol/L (3.5-5.1)
[2016-09-11 05:20] LABS: COMPLETE YES; DOHLE BODIES 1+; EOSINOPHIL % 0.9 %; LYMPH ABS # 0.91 K/uL (1.2-3.4); LYMPHOCYTE % 18.3 %; MEAN CORPUSCULAR HGB CONC 35.8 g/dl (32-36); MEAN PLATELET VOLUME 9.9 fL (7.4-10.4); NEUTROPHILS % 77.3 %; PLATELET COUNT 47 K/uL (130-400); TOXIC GRANULATION 2+
[2016-09-11] MEDS ORDERED: HYDROMORPHONE HCL IT ONE ×2 (08:00)
[2016-09-11] MEDS: AMLODIPINE BESYLATE 5 MG TAB PO SCH (08:12)
[2016-09-11] MEDS: PANTOprazole INJ 40 MG in SYRINGE 0 ML IV SCH (08:13)
[2016-09-11] MEDS: ASPIRIN 81 MG ECTAB PO SCH (08:13)
[2016-09-11] MEDS: GABAPENTIN 300 MG CAP PO SCH ×3 (08:13→20:19)
[2016-09-11] MEDS: FENTANYL 25 MCG/HR TDSY TD SCH (08:15)
[2016-09-11] MEDS: FENTANYL 100 MCG/HR TDSY TD SCH (08:15)
[2016-09-11] MEDS: CHECK FENTANYL PATCH PLACEMENT SCH ×2 (08:16→15:15)
[2016-09-11] MEDS: FENTANYL PATCH REMOVE & WASTE SCH ×2 (08:16→10:40)
[2016-09-11] MEDS: MAGNESIUM CHLORIDE 64MG DELAYED REL TAB PO SCH ×2 (08:17→20:18)
[2016-09-11] MEDS ORDERED: VANCOMYCIN CONSULT ACTIVE PRN (08:30)
[2016-09-11] MEDS ORDERED: FENTANYL 25 MCG/HR TDSY TD SCH (08:45)
[2016-09-11] MEDS ORDERED: MAG SULFATE 50% INJ 4 GM in SODIUM CHLORIDE 0.9% 500ML 500 ML IV SCH (09:00)
--- NOTE | 2016-09-11 09:05 | Pharmacy Progress Note ---
Pharmacy Antibiotic Prog Note Date of Service September 11, 2016. Subjective The patient is currently receiving vancomycin and azactam for possible neutropenic fever The patient is currently on day # 2 of IV therapy. Objective Height (Feet): 5 Height (Inches): 5.00 Weight (Kilograms): 83.255 Levels: Item Value Date Time Random Vancomycin Level 15.2 mcg/ml 09/11/16 0441 Lab Results (24hrs): Test 09/10/16 16:00 09/10/16 18:45 09/10/16 20:40 09/10/16 21:00 Bedside Glucose 90 mg/dl (70-99) 130 mg/dl (70-99) White Blood Count 4.71 K/uL (4.8-10.8) Red Blood Count 3.25 M/uL (4.7-6.1) Hemoglobin 9.2 g/dL (14.0-18.0) Hematocrit 26.6 % (42-52) Mean Corpuscular Volume 81.8 fL (80-100) Mean Corpuscular Hemoglobin 28.3 pg (25-34) Mean Corpuscular Hemoglobin Concent 34.6 g/dl (32-36) Platelet Count 52 K/uL (130-400) Mean Platelet Volume 10.5 fL (7.4-10.4) RDW Standard Deviation 44.3 fL (36.4-46.3) RDW Coefficient of Variation 14.5 % (11.5-14.5) Neutrophils % (Manual) 59.5 % Lymphocytes % (Manual) 29.3 % Monocytes % (Manual) 8.6 % Eosinophils % (Manual) 1.7 % Myelocytes % 0.9 % Neutrophils # (Manual) 2.80 K/uL (1.4-6.5) Total Absolute Neutrophils 2.80 K/uL (1.4-6.5) Lymphocytes # (Manual) 1.38 K/uL (1.2-3.4) Total Absolute Lymphocytes 1.38 K/uL (1.2-3.4) Monocytes # (Manual) 0.41 K/uL (0.11-0.59) Eosinophils # (Manual) 0.08 K/uL (0-0.5) Myelocytes # 0.04 K/uL (0-0) Toxic Granulation 3+ Dohle Bodies 2+ Platelet Estimate DECREASED Sodium Level 138 mmol/L (136-145) Potassium Level 3.8 mmol/L (3.5-5.1) Chloride Level 101 mmol/L (98-107) Carbon Dioxide Level 31 mmol/L (21-32) Anion Gap 6.0 mmol/L (3-11) Blood Urea Nitrogen 16 mg/dl (7-18) Creatinine 1.70 mg/dl (0.60-1.40) Est Creatinine Clear Calc Drug Dose 50.4 ml/min Estimated GFR () 52.9 Estimated GFR (Non- 45.7 BUN/Creatinine Ratio 9.5 (10-20) Random Glucose 102 mg/dl (70-99) Calcium Level 8.5 mg/dl (8.5-10.1) Total Bilirubin 0.5 mg/dl (0.2-1) Aspartate Amino Transf (AST/SGOT) 19 U/L (15-37) Alanine Aminotransferase (ALT/SGPT) 16 U/L (12-78) Alkaline Phosphatase 80 U/L (45-117) Total Protein 7.6 gm/dl (6.4-8.2) Albumin 3.3 gm/dl (3.4-5.0) Globulin 4.3 gm/dl (2.5-4.0) Albumin/Globulin Ratio 0.8 (0.9-2) Urine Color YELLOW Urine Appearance CLEAR (CLEAR) Urine pH 5.0 (4.5-7.5) Urine Specific Esmond 1.013 (1.000-1.030) Urine Protein 1+ (NEG) Urine Glucose (UA) NEG (NEG) Urine Ketones NEG (NEG) Urine Occult Blood NEG (NEG) Urine Nitrite NEG (NEG) Urine Bilirubin NEG (NEG) Urine Urobilinogen NEG (NEG) Urine Leukocyte Esterase NEG (NEG) Urine WBC (Auto) 1-5 /hpf (0-5) Urine RBC (Auto) 0-4 /hpf (0-4) Urine Hyaline Casts (Auto) 1-5 /lpf (0-5) Urine Epithelial Cells (Auto) 0-5 /lpf (0-5) Urine Bacteria (Auto) NEG (NEG) Test 09/11/16 04:41 White Blood Count 4.97 K/uL (4.8-10.8) Red Blood Count 2.96 M/uL (4.7-6.1) Hemoglobin 8.7 g/dL (14.0-18.0) Hematocrit 24.3 % (42-52) Mean Corpuscular Volume 82.1 fL (80-100) Mean Corpuscular Hemoglobin 29.4 pg (25-34) Mean Corpuscular Hemoglobin Concent 35.8 g/dl (32-36) Platelet Count 47 K/uL (130-400) Mean Platelet Volume 9.9 fL (7.4-10.4) RDW Standard Deviation 44.3 fL (36.4-46.3) RDW Coefficient of Variation 14.7 % (11.5-14.5) Neutrophils % (Manual) 77.3 % Lymphocytes % (Manual) 18.3 % Monocytes % (Manual) 3.5 % Eosinophils % (Manual) 0.9 % Neutrophils # (Manual) 3.84 K/uL (1.4-6.5) Total Absolute Neutrophils 3.84 K/uL (1.4-6.5) Lymphocytes # (Manual) 0.91 K/uL (1.2-3.4) Total Absolute Lymphocytes 0.91 K/uL (1.2-3.4) Monocytes # (Manual) 0.17 K/uL (0.11-0.59) Eosinophils # (Manual) 0.04 K/uL (0-0.5) Toxic Granulation 2+ Dohle Bodies 1+ Sodium Level 135 mmol/L (136-145) Potassium Level 3.9 mmol/L (3.5-5.1) Chloride Level 99 mmol/L (98-107) Carbon Dioxide Level 31 mmol/L (21-32) Anion Gap 5.0 mmol/L (3-11) Blood Urea Nitrogen 17 mg/dl (7-18) Creatinine 1.40 mg/dl (0.60-1.40) Est Creatinine Clear Calc Drug Dose 61.2 ml/min Estimated GFR () 66.9 Estimated GFR (Non- 57.8 BUN/Creatinine Ratio 12.1 (10-20) Random Glucose 236 mg/dl (70-99) Calcium Level 8.2 mg/dl (8.5-10.1) Phosphorus Level 3.3 mg/dl (2.5-4.9) Magnesium Level 1.4 mg/dl (1.8-2.4) Random Vancomycin Level 15.2 mcg/ml Micro Results: Item Value Date Time Urine Culture Received 09/10/16 2100 Urine , Clean Catch Pending Blood Culture Received 09/10/16 1851 Blood Pending Blood Culture Received 09/10/16 1845 Blood Pending Blood Culture - Final Complete 09/05/16 1257 Blood NO GROWTH Blood Culture - Final Complete 09/05/16 1218 Blood NO GROWTH Assessment & Plan [age] yo male with febrile neutropenia after chemotherapy on 08/30 in the treatment of Lung Ca. BC from 09/05 are no growth, repeat BC are still pending. Vancomycin: * Random level this am was therapeutic at ~15 mcg/ml (goal 15-20 mcg/ml for pneumonia) * Will start MD of vancomycin 1250 mg (~15 mg/kg) iv q 16 hrs to achieve an estimated trough ~15-20 mcg/ml * Scr improving more today from 1.7 to 1.4 mg/dL (CrCl ~61 ml/min) * Estimated kinetics: t1/2~13 hrs, ke~0.05 hr-1 * Abx ordered as empiric x 48 hrs only ; will reasses tomorrow am if continuation of therapy is warranted and order appropriate levels Pharmacy will continue to follow and will adjust dose/frequency as necessary. Thank you
--- NOTE | 2016-09-11 09:22 | Pain Management Progress Note ---
Pain Management Progress Note Date of Service September 11, 2016. Subjective 51-year-old male with a history of lung cancer with most recent chemotherapy on 08/30/2016. He continues to have poor pain control of his chronic polyneuropathy of 17 years duration secondary to diabetes. He previously was utilizing hydromorphone intrathecal pump but had it explanted a number of years prior. Currently, for pain, he has been utilizing fentanyl patches 125 mcg q. 48 hours as well as hydromorphone 4 mg p.o. q. 2. He reports a better efficacy with IV hydromorphone at this time. He is utilizing gabapentin 600 mg p.o. t.i.d. for adjuvant pain control. He reports that his pain typically ranges between 7 and 9/10. Nothing seems to make the pain worse or better. He continues to note his pain is dysesthetic and noted as paresthesias and predominant bilateral lower extremities, but does have some upper extremity component. He denies any new neurologic deficits, bowel or bladder incontinence, motor weakness, footdrop or falls. Over the last 24hr he has been febrile, segura cultured (pending results), placed on broad spectrum abx, and ID consulted. Intrathecal trial is placed on hold at this time. Objective Vital Signs: Last Vital Signs Documentation Date Time Temp Pulse Resp B/P Pulse Ox O2 Delivery O2 Flow Rate FiO2 09/11/16 07:49 38.2 109 18 193/113 93 09/11/16 00:25 Room Air 09/09/16 00:00 2.0 Physical Exam: AAOx 3 in NAD lying in bed large Right swollen lip moves all extremities with 5/5 strength and diminished sensation over BL LE in nondermatomal distribution log rolls in bed w/o difficulty gait not observed CN grossly intact. Laboratory Laboratory Review: results personally reviewed by me Laboratory Findings 09/11/16 04:41 Red Blood Count 2.96 L, Mean Corpuscular Volume 82.1, Mean Corpuscular Hemoglobin 29.4, Mean Corpuscular Hemoglobin Concent 35.8, Mean Platelet Volume 9.9 Assessment 1. Chronic intractable pain secondary to diabetic polyneuropathy. 2. Intractable nausea and vomiting secondary to chemotherapy. 3. Lung cancer status post left lobectomy with most recent chemotherapy dose of 08/30/2016. 4. Pancytopenia. 5. History of gastroparesis, status post gastric stimulator implantation. 6 Febrile state Recommendations 1. Will hold on intrathecal trial for now, but would plan for single shot IT hydromorphone 0.25mg once trial able to be performed. 2. Will increase fentanyl to 150mcg q 48 3. Will initiate effexor xr 37.5mg po qd to reduce pain burden. 4. Will peripherally follow until determination has been made about source of fever, abx duration. 5. Please call with any questions. Thank you [employer] Voice Recognition This chart was completed in part utilizing [employer] Voice Recognition Software. Random word insertions, pronoun errors, and incomplete sentences are an occasional consequence of this system due to software limitations and ambient noise. Any questions or concerns about the content, text or information contained within the body of this dictation should be directly addressed to the provider for clarification.
[2016-09-11] MEDS: INSULIN ASPART 100 UNITS/ML 3 ML PEN SC SCH ×4 (09:40→21:40)
[2016-09-11] MEDS ORDERED: FENTANYL PATCH REMOVE & WASTE SCH (09:59)
[2016-09-11] MEDS ORDERED: FENTANYL 75 MCG/HR TDSY TD SCH (10:00)
[2016-09-11] MEDS: FENTANYL 75 MCG/HR TDSY TD SCH (10:44)
[2016-09-11] MEDS: VANCOMYCIN INJ 1,250 MG in SODIUM CHLORIDE 0.9% 250ML 250 ML IV SCH (10:51)
--- NOTE | 2016-09-11 11:41 | Pharmacy Progress Note ---
Glycemic Control: Progress Nt Date of Service September 11, 2016. Scope Glycemic Pharmacist consulted by Marilin Chahal on 09/05/16 for glycemic control and to write orders per [facility] inpatient glycemic control protocol. Objective Accuchecks BSG (last 24hrs): Test 09/10/16 11:28 09/10/16 16:00 09/10/16 18:45 09/10/16 20:40 Bedside Glucose 228 mg/dl (70-99) 90 mg/dl (70-99) 130 mg/dl (70-99) Random Glucose 102 mg/dl (70-99) Test 09/11/16 04:41 09/11/16 07:57 09/11/16 11:03 Random Glucose 236 mg/dl (70-99) Bedside Glucose 194 mg/dl (70-99) 175 mg/dl (70-99) Laboratory Data (last 24hrs) Test 09/10/16 18:45 09/11/16 04:41 Anion Gap 6.0 mmol/L 5.0 mmol/L BUN/Creatinine Ratio 9.5 12.1 Blood Urea Nitrogen 16 mg/dl 17 mg/dl Creatinine 1.70 mg/dl 1.40 mg/dl Potassium Level 3.8 mmol/L 3.9 mmol/L Sodium Level 138 mmol/L 135 mmol/L White Blood Count 4.71 K/uL 4.97 K/uL Red Blood Count 3.25 M/uL 2.96 M/uL Hemoglobin 9.2 g/dL 8.7 g/dL Hematocrit 26.6 % 24.3 % Mean Corpuscular Volume 81.8 fL 82.1 fL Mean Corpuscular Hemoglobin 28.3 pg 29.4 pg Mean Corpuscular Hemoglobin Concent 34.6 g/dl 35.8 g/dl Platelet Count 52 K/uL 47 K/uL Mean Platelet Volume 10.5 fL 9.9 fL Recent Pertinent Medications Outpatient Anti-diabetic Regimen: * Lantus 25 units HS, Humalog CF = 10 * A1c = 10.4 % from 08/06/16 Risk Factors for Insulin Resistance: * Steroids: Decadron pre/post chemo * Infection: Febrile neutropenia, Vanc + Azactam * Diet: DM2 Assessment & Plan ASSESSMENT: * ADA & AACE recommend a goal blood sugar range 140-180 mg/dl for the majority of critically ill & non-critically ill patients. However, more stringent targets may be selected in individual cases. 09/09/16: * 51 yo T2D M admitted with N/V, known to the glycemic service from most recent admission earlier this month * Total daily dose ~ 50 units per previous admission when tolerating a full PO diet * Total daily dose of insulin continues to decrease d/t decreased PO intake [ 27 units on 09/06 --> 17 units on 09/07 --> 12 units on 09/08] * 12 units basal insulin * 0 units correctional insulin * 0 units of prandial insulin * Regimen is weighted towards basal insulin but that is because no prandial coverage is being given (while essentially NPO, pt ordered diet but not eating well) * AM fasting BSG in goal range per inpatient targets this morning @ 139mg/dl with basal insulin dose reduction yesterday. No changes needed today. 09/10/16: * BSGs are adequately controlled on current DM regimen. * Of note, the pt is made NPO at midnight tonight (prep for procedure with pain management?). However, will continue current Lantus dose. I suspect the pt will tolerate the Lantus dose currently ordered because PO intake has been minimal on this dose anyway. * No changes will be made to inpatient DM regimen today. 09/11/16: * Basal vs prandial needs appropriately distributed 50/50 yesterday. * Pt spiked a fever yesterday in setting of neutropenia. Pt started on IV antibiotics yesterday evening and OR was postponed d/t fever. Kidney function also declined yesterday, however, it is improving today (SCr --> 1.3 --> 1.7 -- > 1.4). * BSG went up overnight likely in response to illness. FBG this morning was elevated on armdraw: 236 mg/l and POC: 194 mg/dl. Pre-lunch BSG = 175 mg/dl. * In recent past the pt experienced AM hypoglycemia on higher doses of Lantus so I am hesitant to increase dose at this time. I recommend increasing Lantus dose tomorrow if FBG remains elevated. * Of note, the pt had a transfusion this admission so a repeat A1c should not be ordered for at least 1 month to avoid inaccurate results. * No changes to current inpatient regimen at this time. PLAN FOR INPATIENT GLYCEMIC CONTROL: * Continue - Basal insulin with LANTUS 12 units SQ HS * Correctional Insulin with NOVOLOG per scale ACHS or Q6hrs while NPO * Goal Range: Low 120 mg/dL - High 160 mg/dL * Continue - Correction Factor: 20 mg/dL/unit * Continue - Nutritional / Prandial insulin per carb ratio of 1 unit per 7 grams CHO consumed * Please note that the plan above was derived based on current level of insulin resistance and hospital stress. These recommendations are appropriate for inpatient admission only. Plan of care upon discharge will need to be reassessed to avoid potential outpatient hypo/hyperglycemia. Thank you.
--- NOTE | 2016-09-11 11:49 | Medical Consult ---
Consultation Date of Consultation: September 11, 2016. Attending Physician: Idalmis Lares DO Reason for Consultation: Neutropenia, fever History of Present Illness Patient is a 51-year-old male admitted to the hospital with concerns of persistent nausea and vomiting for multiple days prior to admission. The patient does have history of adenocarcinoma of the lung for which he is undergoing chemotherapy, and did have a recent dose of chemotherapy treatment. The patient was noted on admission to be fatigued, weak, and having subjective fevers. He did not however have a fever on admission. He did however developed fevers starting yesterday. The patient was initially neutropenic as well on admission, but his white blood cell count has slightly increased since admission. His white blood cell count today was 4.97. His total absolute neutrophil count was 3.84. The patient started having fever yesterday, and his fever has not subsided since then. The patient did however experienced trauma to the right face when he had his lip off of his bed at the beginning of admission. Since that time, the patient slipped has progressively become more and more swollen. He states that this morning, he did have some small pustules on his lip, and his right jaw is also becoming very swollen. The patient had ripped blood cultures on admission which showed no growth, but a repeat blood cultures and urine culture are currently pending. The patient was placed on IV vancomycin and aztreonam for empiric therapy. I did discuss this patient with Dr. Lares as well. The patient has had multiple chest x-rays which showed trace pleural fluid of the left base. He also had a KUB completed which showed no evidence of pathologic bowel dilatation. Past Medical/Surgical History Medical Problems: (1) Altered mental status Status: Acute (2) Anemia Status: Acute (3) Dehydration Status: Acute (4) Dehydration Status: Acute (5) Dehydration Status: Acute (6) Failure of outpatient treatment Status: Acute (7) Hypomagnesemia Status: Acute (8) Hypomagnesemia Status: Acute (9) Intractable vomiting Status: Acute (10) Intractable vomiting Status: Acute (11) Orthostatic hypotension Status: Acute (12) Vomiting Status: Acute Medical Problems: (1) Confusion (2) Diabetes mellitus, type II (3) Diabetic polyneuropathy (4) Gastroparesis (5) HTN (hypertension) (6) Lung cancer (7) Nausea and vomiting (8) Neutropenia (9) Orthostatic hypotension Surgical Problems: (1) H/O colonoscopy (2) H/O esophagogastroduodenoscopy (3) History of cholecystectomy (4) History of tonsillectomy and adenoidectomy (5) Hx of total knee arthroplasty (6) S/P lobectomy of lung Family History No pertinent family history Noncontributory Social History Smoking Status: Never Smoker Drug Use: none Marital Status: Housing Status: lives with family Allergies Coded Allergies: BEE STING (Verified Allergy, Mild, SWELLING AT SITE, SOB, 09/05/16) Penicillins (Verified Allergy, Unknown, "SINCE ", 09/05/16) Home Medications Reported Home Medications Medications Dose Route/Sig Max Daily Dose Days Date Category Dose Instructions Emend (Aprepitant) Unknown Strength Cap Unknown Dose 09/05/16 Reported take 125 mcg an hour before chemo then take 80 mcg daily for two days following chemo. Reglan (Metoclopramide Hcl) 10 Mg Tab 10 Mg PO ACHS PRN 08/25/16 Reported Lopressor (Metoprolol Tartrate) 25 Mg Tab 25 Mg PO BID 08/25/16 Reported Slow-Mag Tab (Magnesium Chloride) 64 Mg Tabcr 64 Mg PO BID 08/25/16 Reported Nucynta (Tapentadol Hcl) 100 Mg Tab 150 Mg PO Q6H PRN 08/25/16 Reported Dilaudid (Hydromorphone Hcl) 2 Mg Tab 8 Mg PO Q8 PRN 08/25/16 Reported Duragesic (Fentanyl) 50 Mcg Tdsy 100 Mcg TD [id number] 08/25/16 Reported Norvasc (Amlodipine Besylate) 10 Mg Tab 10 Mg PO DAILY 08/25/16 Reported Ondansetron HCl (Ondansetron) 4 Mg Tab 8 Mg PO Q8 PRN 08/15/16 Reported Decadron (Dexamethasone) 4 Mg Tab 8 Mg PO UD PRN 08/05/16 Reported TAKE ONLY ON DAY OF AND DAY AFTER CHEMO Neurontin (Gabapentin) 300 Mg Cap 600 Mg PO TID 08/05/16 Reported Aspirin Ec (Aspirin) 81 Mg Tab 81 Mg PO QAM 08/05/16 Reported Lantus (Insulin Glargine) 100 Unit/Ml Inj 25 Units SC QPM 08/05/16 Reported Tylenol (Acetaminophen) 500 Mg Tab 1,000 Mg PO TID PRN 08/05/16 Reported Phenergan (Promethazine Hcl) 12.5 Mg Tab 25 Mg PO Q4H PRN 08/05/16 Reported Humalog (Insulin Human Lispro) 1 Ea Inj 1 Dose SC UD 08/05/16 Reported 1 unit for every 10 greater than 120 Epipen (Epinephrine) 0.3 Mg/0.3 Ml Inj 0.3 Mg IM UD PRN 04/16/13 Reported Multivitamins (Multiple Vitamin) 1 Cap Cap 1 Cap PO QAM 04/16/13 Reported Current Inpatient Medications Current Inpatient Medications Medications (Trade) Dose Ordered Sig/Cal Route Start Time Stop Time Status Last Admin Dose Admin Acetaminophen (Tylenol Tab) 650 mg Q4H PRN PO 09/05/16 14:45 10/05/16 14:44 09/11/16 08:14 650 MG Al Hydrox/Mg Hydrox/Simethicone (Maalox Max Susp) 15 ml Q4H PRN PO 09/05/16 14:45 10/05/16 14:44 Magnesium Hydroxide (Milk Of Magnesia Susp) 30 ml Q6H PRN PO 09/05/16 14:45 10/05/16 14:44 Polyethylene (Miralax Powder Packet) 17 gm DAILY PRN PO 09/05/16 14:45 10/05/16 14:44 Zolpidem Tartrate 5 mg 5 mg HSZ PRN PO 09/05/16 14:45 10/05/16 14:44 09/10/16 22:51 5 MG Promethazine HCl/ Sodium Chloride (Phenergan Inj/ Nss 50ml) 50.5 ml @ 204 mls/hr Q6H PRN IV 09/05/16 14:45 10/05/16 14:44 09/10/16 08:18 204 MLS/HR Insulin Aspart (novoLOG ASPART) SLIDING SCALE If C... ACHS SC 09/05/16 16:00 10/05/16 15:59 09/11/16 09:40 8 UNITS Glucose (Glucose 40% Gel) 15-30 GRAMS 15 GRAMS... UD PRN PO 09/05/16 14:45 10/05/16 14:44 Glucose (Glucose Chew Tab) 4-8 Tablets 4 Tabl... UD PRN PO 09/05/16 14:45 10/05/16 14:44 Dextrose (Dextrose 50% 50ML Syringe) 25-50ML OF 50% DW IV FOR... UD PRN IV 09/05/16 14:45 10/05/16 14:44 Glucagon (Glucagon Inj) 1 mg UD PRN SQ 09/05/16 14:45 10/05/16 14:44 Miscellaneous Information (Consult Glycemic Management Pharmacy) 1 ea UD PRN N/A 09/05/16 14:51 10/05/16 14:50 Aspirin (Ecotrin Tab) 81 mg QAM PO 09/06/16 08:00 10/06/16 08:59 09/11/16 08:13 81 MG Gabapentin (Neurontin Cap) 600 mg TID PO 09/05/16 20:00 10/05/16 20:59 09/11/16 08:13 600 MG Magnesium Chloride (Slow-Mag Tab) 64 mg BID PO 09/05/16 20:00 10/05/16 20:59 09/11/16 08:17 64 MG Amlodipine Besylate (Norvasc Tab) 10 mg DAILY PO 09/06/16 08:00 10/06/16 08:59 09/11/16 08:12 10 MG Hydralazine HCl 5 mg 5 mg Q6H PRN IV. 09/06/16 22:00 10/06/16 21:59 Ondansetron HCl/ Dextrose (Zofran Inj/D5 50ml) 54 ml @ 216 mls/hr Q8H IV 09/07/16 10:00 10/07/16 09:59 09/11/16 09:34 216 MLS/HR Insulin Glargine (Lantus Solostar Pen) 12 unit HS SC 09/08/16 21:00 10/08/16 20:59 09/10/16 20:43 12 UNIT Hydromorphone HCl 4 mg 4 mg Q2H PRN PO 09/09/16 20:15 09/23/16 20:14 09/11/16 10:45 4 MG Aztreonam/Dextrose (Azactam IV/D5 100ml) 110 ml @ 100 mls/hr Q8H IV 09/10/16 18:30 09/12/16 18:29 09/11/16 09:36 100 MLS/HR Hydromorphone HCl 0.5 mg 0.5 mg Q4H PRN IV 09/10/16 22:45 09/24/16 22:44 09/11/16 04:55 0.5 MG Magnesium Sulfate/ Sodium Chloride (Mag Sulfate 50% Inj/Nss 500ml) 508 ml @ 125 mls/hr Q4H4M IV 09/11/16 09:00 09/11/16 13:00 09/11/16 10:51 125 MLS/HR Vancomycin HCl (Consult) 1 ea UD PRN N/A 09/11/16 08:30 10/11/16 08:29 Venlafaxine HCl 37.5 mg 37.5 mg QAM PO 09/11/16 10:30 10/11/16 10:29 Vancomycin HCl/ Sodium Chloride (Vancomycin Inj/ Nss 250ml) 275 ml @ 125 mls/hr Q16H IV 09/11/16 10:00 09/12/16 23:59 09/11/16 10:51 125 MLS/HR Fentanyl (Duragesic Patch) 150 mcg Q2D@1000 TD 09/11/16 10:00 09/25/16 09:59 09/11/16 10:44 150 MCG Miscellaneous (Fentanyl Patch Remove & Waste) 1 ea Q2D@0959 N/A 09/11/16 09:59 10/11/16 09:58 Miscellaneous Information (Check Fentanyl Patch Placement) 1 ea QS N/A 09/11/16 16:00 10/11/16 15:59 Pantoprazole Sodium (Protonix Tab) 40 mg BID PO 09/11/16 20:00 10/11/16 19:59 Review of Systems Constitutional: + fatigue, + fever Eyes: No worsening of vision ENT: + problem reported (right sided facial swelling), + sore throat (from vomiting), No hearing loss Respiratory: + cough, No sputum Cardiovascular: No chest pain Abdomen: + nausea, + pain, + vomiting, No diarrhea Musculoskeletal: + problem reported (neuropathy pains throughout body), No swelling Genitourinary - Male: No dysuria, No hematuria Integumentary: + new/changing skin lesions (right side of bottom lip with severe edema, erythema and pain. Noted small pustules on bottom lip this morning that broke open) Physical Exam Date Time Temp Pulse Resp B/P Pulse Ox O2 Delivery O2 Flow Rate FiO2 09/11/16 11:32 38.2 09/11/16 07:49 38.2 109 18 193/113 93 09/11/16 05:13 37.2 98 18 160/80 100 09/11/16 04:42 37.3 97 18 161/80 97 09/11/16 04:15 37.2 100 18 159/86 100 09/11/16 03:52 36.7 100 18 170/101 97 09/11/16 02:30 37.1 09/11/16 00:25 Room Air 09/10/16 23:58 38.0 104 20 164/89 93 Room Air 09/10/16 20:17 Room Air 09/10/16 20:07 37.2 101 18 154/89 94 Room Air 09/10/16 16:25 37.6 97 18 156/90 99 09/10/16 16:00 Room Air 09/10/16 15:27 37.3 100 18 129/75 95 Room Air 09/10/16 15:25 38.3 94 18 125/72 94 09/10/16 14:55 37.3 100 18 129/75 95 09/10/16 14:25 37.2 93 18 129/72 95 09/10/16 14:25 37.2 93 18 129/72 95 09/10/16 14:10 37.5 108 18 139/77 100 09/10/16 13:55 38.0 92 18 128/77 95 09/10/16 13:10 37.8 98 18 107/67 98 09/10/16 12:10 37.8 95 18 130/75 99 09/10/16 11:40 37.5 94 18 135/70 96 General Appearance: + moderate distress (pain), + thin Head: normocephalic, atraumatic Eyes: normal inspection, sclerae normal ENT: hearing grossly normal, + pertinent finding (Right sided jaw/facial edema with tenderness. Right bottom lip with severe edema. Tongue without lesions/ erythema) Neck: supple, trachea midline, + adenopathy present (right posterior chain, right submandibular lymphadenopathy, tender) Respiratory/Chest: chest non-tender, no respiratory distress, no accessory muscle use, + pertinent finding (decreased breath sound left upper lobe) Cardiovascular: regular rate, rhythm, no murmur Abdomen/GI: normal bowel sounds, non tender, soft Neurologic/Psych: alert, normal mood/affect Skin: + pertinent finding (erythema of the right bottom lip with no current pustules, but splotchy erythema and tenderness) Laboratory Results Item Value Date Time Urine Culture - Preliminary Resulted 09/10/16 2100 Urine , Clean Catch NO GROWTH - LESS THAN 1,000 COLONIES/... Blood Culture Received 09/10/16 1851 Blood Pending Blood Culture Received 09/10/16 1845 Blood Pending Blood Culture - Final Complete 09/05/16 1257 Blood NO GROWTH Blood Culture - Final Complete 09/05/16 1218 Blood NO GROWTH Last 24 Hours Test 09/10/16 16:00 09/10/16 18:45 09/10/16 20:40 09/10/16 21:00 Bedside Glucose 90 mg/dl 130 mg/dl White Blood Count 4.71 K/uL Red Blood Count 3.25 M/uL Hemoglobin 9.2 g/dL Hematocrit 26.6 % Mean Corpuscular Volume 81.8 fL Mean Corpuscular Hemoglobin 28.3 pg Mean Corpuscular Hemoglobin Concent 34.6 g/dl Platelet Count 52 K/uL Mean Platelet Volume 10.5 fL RDW Standard Deviation 44.3 fL RDW Coefficient of Variation 14.5 % Neutrophils % (Manual) 59.5 % Lymphocytes % (Manual) 29.3 % Monocytes % (Manual) 8.6 % Eosinophils % (Manual) 1.7 % Myelocytes % 0.9 % Neutrophils # (Manual) 2.80 K/uL Total Absolute Neutrophils 2.80 K/uL Lymphocytes # (Manual) 1.38 K/uL Total Absolute Lymphocytes 1.38 K/uL Monocytes # (Manual) 0.41 K/uL Eosinophils # (Manual) 0.08 K/uL Myelocytes # 0.04 K/uL Toxic Granulation 3+ Dohle Bodies 2+ Platelet Estimate DECREASED Sodium Level 138 mmol/L Potassium Level 3.8 mmol/L Chloride Level 101 mmol/L Carbon Dioxide Level 31 mmol/L Anion Gap 6.0 mmol/L Blood Urea Nitrogen 16 mg/dl Creatinine 1.70 mg/dl Est Creatinine Clear Calc Drug Dose 50.4 ml/min Estimated GFR () 52.9 Estimated GFR (Non- 45.7 BUN/Creatinine Ratio 9.5 Random Glucose 102 mg/dl Calcium Level 8.5 mg/dl Total Bilirubin 0.5 mg/dl Aspartate Amino Transf (AST/SGOT) 19 U/L Alanine Aminotransferase (ALT/SGPT) 16 U/L Alkaline Phosphatase 80 U/L Total Protein 7.6 gm/dl Albumin 3.3 gm/dl Globulin 4.3 gm/dl Albumin/Globulin Ratio 0.8 Urine Color YELLOW Urine Appearance CLEAR Urine pH 5.0 Urine Specific Fith[place] 1.013 Urine Protein 1+ Urine Glucose (UA) NEG Urine Ketones NEG Urine Occult Blood NEG Urine Nitrite NEG Urine Bilirubin NEG Urine Urobilinogen NEG Urine Leukocyte Esterase NEG Urine WBC (Auto) 1-5 /hpf Urine RBC (Auto) 0-4 /hpf Urine Hyaline Casts (Auto) 1-5 /lpf Urine Epithelial Cells (Auto) 0-5 /lpf Urine Bacteria (Auto) NEG Test 09/11/16 04:41 09/11/16 07:57 09/11/16 11:03 White Blood Count 4.97 K/uL Red Blood Count 2.96 M/uL Hemoglobin 8.7 g/dL Hematocrit 24.3 % Mean Corpuscular Volume 82.1 fL Mean Corpuscular Hemoglobin 29.4 pg Mean Corpuscular Hemoglobin Concent 35.8 g/dl Platelet Count 47 K/uL Mean Platelet Volume 9.9 fL RDW Standard Deviation 44.3 fL RDW Coefficient of Variation 14.7 % Neutrophils % (Manual) 77.3 % Lymphocytes % (Manual) 18.3 % Monocytes % (Manual) 3.5 % Eosinophils % (Manual) 0.9 % Neutrophils # (Manual) 3.84 K/uL Total Absolute Neutrophils 3.84 K/uL Lymphocytes # (Manual) 0.91 K/uL Total Absolute Lymphocytes 0.91 K/uL Monocytes # (Manual) 0.17 K/uL Eosinophils # (Manual) 0.04 K/uL Toxic Granulation 2+ Dohle Bodies 1+ Sodium Level 135 mmol/L Potassium Level 3.9 mmol/L Chloride Level 99 mmol/L Carbon Dioxide Level 31 mmol/L Anion Gap 5.0 mmol/L Blood Urea Nitrogen 17 mg/dl Creatinine 1.40 mg/dl Est Creatinine Clear Calc Drug Dose 61.2 ml/min Estimated GFR () 66.9 Estimated GFR (Non- 57.8 BUN/Creatinine Ratio 12.1 Random Glucose 236 mg/dl Calcium Level 8.2 mg/dl Phosphorus Level 3.3 mg/dl Magnesium Level 1.4 mg/dl Random Vancomycin Level 15.2 mcg/ml Bedside Glucose 194 mg/dl 175 mg/dl Assessment & Plan Patient with Adenocarcinoma of the lung s/p recent chemotherapy, probable chemotherapy induced nausea and vomiting, and new onset fevers with bottom lip swelling/facial swelling following bedside trauma when the patient hit his lip off of the bed. Patient did have some pustules in this area this morning and was placed on IV Vancomycin and Aztreonam for concerns of continued fever. With the patient's severe lip swelling/ right sided facial swelling and adenopathy, recommend CT scan of the face to assess for underlying infection. Blood cultures were repeated and are pending. Will continue broad spectrum abx pending further workup. We will follow. PROVIDER ADDENDUM: Patient examined and reviewed with Ms. Munoz. Agree with above assessment.
[2016-09-11] MEDS: VENLAFAXINE HCL XR 37.5 MG CAPXR PO SCH (12:58)
--- NOTE | 2016-09-11 13:37 | Progress Note ---
Medicine Progress Note Date & Time of Visit: September 11, 2016 at 13:22. Subjective 51 yo M with chemo-induced nausea/vomiting presented with intolerance to PO and worsening of his chronic pain. -persistent fevers yesterday AFTER blood product administration -dry cough appears to have subsided -no SOB or chest pain -still tolerating PO followed quickly by vomiting -now has more swelling of lower R jaw with purulent drainage--very painful to patient -Vanc/Aztreonam started yesterday with improvement in fevers overnight-blood cultures pend -denies abdominal pain -denies diarrhea -ID consulted -pain team gave PLT infusion in preparation for pain stimulator placement today , however, in light of infection this was cancelled. Objective Last 8 Hrs Date Time Temp Pulse Resp B/P Pulse Ox O2 Delivery O2 Flow Rate FiO2 09/11/16 11:46 37.6 99 18 154/81 98 09/11/16 11:32 38.2 09/11/16 10:30 Room Air 09/11/16 07:49 38.2 109 18 193/113 93 Physical Exam: GEN: WNWD, not ill-appearing, alert and appropriate, sitting at bedside eating a salad and conversing with his father HEENT: swollen lower lip on R side with more involvement of R lower jaw-no purulent drainage seen at this time-very TTP, normal sclerae, mucous membranes are moist NECK: no LAD present in his neck or tenderness, trachea midline CV: reg rate and rhythm, S1/2 heard, no mgr LUNGS: CTAB, good air movement ABD: NTND, soft EXTREMITY: Multiple skin abrasions on hands eugene R hand from trauma in seting of neuropathy. No LE swelling or edema, peripheral IV intact NEURO: CN 2-12 grossly intact, decreased sensation 2/2 neuropathy which appears generalized MUSC: nonfocal, moves all extremities equally, ambulatory SKIN: red birthmark on L forearm. Laboratory Results: 09/11/16 04:41 Red Blood Count 2.96, Mean Corpuscular Volume 82.1, Mean Corpuscular Hemoglobin 29.4, Mean Corpuscular Hemoglobin Concent 35.8, Mean Platelet Volume 9.9 09/11/16 04:41 Test 09/05/16 12:18 09/09/16 05:15 09/10/16 06:00 09/10/16 18:45 Toxic Vacuolation 1+ Direct Bilirubin 0.2 mg/dl (0-0.2) Thyroid Stimulating Hormone (TSH) 0.732 uIu/ml (0.300-4.500) Free Thyroxine 1.44 ng/dl (0.80-1.60) Immature Granulocyte % (Auto) 0.0 % White Blood Count 2.26 K/uL (4.8-10.8) Red Blood Count 2.94 M/uL (4.7-6.1) Hemoglobin 8.6 g/dL (14.0-18.0) Hematocrit 24.1 % (42-52) Mean Corpuscular Volume 82.0 fL (80-100) Mean Corpuscular Hemoglobin 29.3 pg (25-34) Mean Corpuscular Hemoglobin Concent 35.7 g/dl (32-36) Platelet Count 73 K/uL (130-400) Mean Platelet Volume 9.2 fL (7.4-10.4) Neutrophils (%) (Auto) 28.7 % Lymphocytes (%) (Auto) 54.0 % Monocytes (%) (Auto) 7.1 % Eosinophils (%) (Auto) 10.2 % Basophils (%) (Auto) 0.0 % Neutrophils # (Auto) 0.65 K/uL (1.4-6.5) Lymphocytes # (Auto) 1.22 K/uL (1.2-3.4) Monocytes # (Auto) 0.16 K/uL (0.11-0.59) Eosinophils # (Auto) 0.23 K/uL (0-0.5) Basophils # (Auto) 0.00 K/uL (0-0.2) Immature Granulocyte # (Auto) 0.00 K/uL (0.00-0.02) Basophils % (Manual) 0.9 % (0-2) Basophils # (Manual) 0.02 K/uL (0-0.2) Myelocytes % 0.9 % Myelocytes # 0.04 K/uL (0-0) Platelet Estimate DECREASED Total Bilirubin 0.5 mg/dl (0.2-1) Aspartate Amino Transf (AST/SGOT) 19 U/L (15-37) Alanine Aminotransferase (ALT/SGPT) 16 U/L (12-78) Alkaline Phosphatase 80 U/L (45-117) Total Protein 7.6 gm/dl (6.4-8.2) Albumin 3.3 gm/dl (3.4-5.0) Globulin 4.3 gm/dl (2.5-4.0) Albumin/Globulin Ratio 0.8 (0.9-2) Test 09/10/16 21:00 09/11/16 04:41 09/11/16 11:03 Urine Color YELLOW Urine Appearance CLEAR (CLEAR) Urine pH 5.0 (4.5-7.5) Urine Specific [place] 1.013 (1.000-1.030) Urine Protein 1+ (NEG) Urine Glucose (UA) NEG (NEG) Urine Ketones NEG (NEG) Urine Occult Blood NEG (NEG) Urine Nitrite NEG (NEG) Urine Bilirubin NEG (NEG) Urine Urobilinogen NEG (NEG) Urine Leukocyte Esterase NEG (NEG) Urine WBC (Auto) 1-5 /hpf (0-5) Urine RBC (Auto) 0-4 /hpf (0-4) Urine Hyaline Casts (Auto) 1-5 /lpf (0-5) Urine Epithelial Cells (Auto) 0-5 /lpf (0-5) Urine Bacteria (Auto) NEG (NEG) White Blood Count 4.97 K/uL (4.8-10.8) Red Blood Count 2.96 M/uL (4.7-6.1) Hemoglobin 8.7 g/dL (14.0-18.0) Hematocrit 24.3 % (42-52) Mean Corpuscular Volume 82.1 fL (80-100) Mean Corpuscular Hemoglobin 29.4 pg (25-34) Mean Corpuscular Hemoglobin Concent 35.8 g/dl (32-36) Platelet Count 47 K/uL (130-400) Mean Platelet Volume 9.9 fL (7.4-10.4) RDW Standard Deviation 44.3 fL (36.4-46.3) RDW Coefficient of Variation 14.7 % (11.5-14.5) Neutrophils % (Manual) 77.3 % Lymphocytes % (Manual) 18.3 % Monocytes % (Manual) 3.5 % Eosinophils % (Manual) 0.9 % Neutrophils # (Manual) 3.84 K/uL (1.4-6.5) Total Absolute Neutrophils 3.84 K/uL (1.4-6.5) Lymphocytes # (Manual) 0.91 K/uL (1.2-3.4) Total Absolute Lymphocytes 0.91 K/uL (1.2-3.4) Monocytes # (Manual) 0.17 K/uL (0.11-0.59) Eosinophils # (Manual) 0.04 K/uL (0-0.5) Toxic Granulation 2+ Dohle Bodies 1+ Anion Gap 5.0 mmol/L (3-11) Est Creatinine Clear Calc Drug Dose 61.2 ml/min Estimated GFR () 66.9 Estimated GFR (Non- 57.8 BUN/Creatinine Ratio 12.1 (10-20) Calcium Level 8.2 mg/dl (8.5-10.1) Phosphorus Level 3.3 mg/dl (2.5-4.9) Magnesium Level 1.4 mg/dl (1.8-2.4) Random Vancomycin Level 15.2 mcg/ml Bedside Glucose 175 mg/dl (70-99) Date/Time Source Procedure Growth Status 09/10/16 18:51 Blood Blood Culture Pending Received 09/10/16 21:00 Urine , Clean Catch Urine Culture - Preliminary NO GROWTH - LESS THAN 1,000 COLONIES/... Resulted Last 24 Hours Test 09/10/16 16:00 09/10/16 18:45 09/10/16 20:40 09/10/16 21:00 Bedside Glucose 90 mg/dl 130 mg/dl White Blood Count 4.71 K/uL Red Blood Count 3.25 M/uL Hemoglobin 9.2 g/dL Hematocrit 26.6 % Mean Corpuscular Volume 81.8 fL Mean Corpuscular Hemoglobin 28.3 pg Mean Corpuscular Hemoglobin Concent 34.6 g/dl Platelet Count 52 K/uL Mean Platelet Volume 10.5 fL RDW Standard Deviation 44.3 fL RDW Coefficient of Variation 14.5 % Neutrophils % (Manual) 59.5 % Lymphocytes % (Manual) 29.3 % Monocytes % (Manual) 8.6 % Eosinophils % (Manual) 1.7 % Myelocytes % 0.9 % Neutrophils # (Manual) 2.80 K/uL Total Absolute Neutrophils 2.80 K/uL Lymphocytes # (Manual) 1.38 K/uL Total Absolute Lymphocytes 1.38 K/uL Monocytes # (Manual) 0.41 K/uL Eosinophils # (Manual) 0.08 K/uL Myelocytes # 0.04 K/uL Toxic Granulation 3+ Dohle Bodies 2+ Platelet Estimate DECREASED Sodium Level 138 mmol/L Potassium Level 3.8 mmol/L Chloride Level 101 mmol/L Carbon Dioxide Level 31 mmol/L Anion Gap 6.0 mmol/L Blood Urea Nitrogen 16 mg/dl Creatinine 1.70 mg/dl Est Creatinine Clear Calc Drug Dose 50.4 ml/min Estimated GFR () 52.9 Estimated GFR (Non- 45.7 BUN/Creatinine Ratio 9.5 Random Glucose 102 mg/dl Calcium Level 8.5 mg/dl Total Bilirubin 0.5 mg/dl Aspartate Amino Transf (AST/SGOT) 19 U/L Alanine Aminotransferase (ALT/SGPT) 16 U/L Alkaline Phosphatase 80 U/L Total Protein 7.6 gm/dl Albumin 3.3 gm/dl Globulin 4.3 gm/dl Albumin/Globulin Ratio 0.8 Urine Color YELLOW Urine Appearance CLEAR Urine pH 5.0 Urine Specific [place] 1.013 Urine Protein 1+ Urine Glucose (UA) NEG Urine Ketones NEG Urine Occult Blood NEG Urine Nitrite NEG Urine Bilirubin NEG Urine Urobilinogen NEG Urine Leukocyte Esterase NEG Urine WBC (Auto) 1-5 /hpf Urine RBC (Auto) 0-4 /hpf Urine Hyaline Casts (Auto) 1-5 /lpf Urine Epithelial Cells (Auto) 0-5 /lpf Urine Bacteria (Auto) NEG Test 09/11/16 04:41 09/11/16 07:57 09/11/16 11:03 White Blood Count 4.97 K/uL Red Blood Count 2.96 M/uL Hemoglobin 8.7 g/dL Hematocrit 24.3 % Mean Corpuscular Volume 82.1 fL Mean Corpuscular Hemoglobin 29.4 pg Mean Corpuscular Hemoglobin Concent 35.8 g/dl Platelet Count 47 K/uL Mean Platelet Volume 9.9 fL RDW Standard Deviation 44.3 fL RDW Coefficient of Variation 14.7 % Neutrophils % (Manual) 77.3 % Lymphocytes % (Manual) 18.3 % Monocytes % (Manual) 3.5 % Eosinophils % (Manual) 0.9 % Neutrophils # (Manual) 3.84 K/uL Total Absolute Neutrophils 3.84 K/uL Lymphocytes # (Manual) 0.91 K/uL Total Absolute Lymphocytes 0.91 K/uL Monocytes # (Manual) 0.17 K/uL Eosinophils # (Manual) 0.04 K/uL Toxic Granulation 2+ Dohle Bodies 1+ Sodium Level 135 mmol/L Potassium Level 3.9 mmol/L Chloride Level 99 mmol/L Carbon Dioxide Level 31 mmol/L Anion Gap 5.0 mmol/L Blood Urea Nitrogen 17 mg/dl Creatinine 1.40 mg/dl Est Creatinine Clear Calc Drug Dose 61.2 ml/min Estimated GFR () 66.9 Estimated GFR (Non- 57.8 BUN/Creatinine Ratio 12.1 Random Glucose 236 mg/dl Calcium Level 8.2 mg/dl Phosphorus Level 3.3 mg/dl Magnesium Level 1.4 mg/dl Random Vancomycin Level 15.2 mcg/ml Bedside Glucose 194 mg/dl 175 mg/dl Date/Time Source Procedure Growth Status 09/10/16 18:51 Blood Blood Culture Pending Received 09/10/16 18:45 Blood Blood Culture Pending Received 09/10/16 21:00 Urine , Clean Catch Urine Culture - Preliminary NO GROWTH - LESS THAN 1,000 COLONIES/... Resulted Assessment & Plan 51 year old male undergoing chemotherapy presents to the ED complaining of vomiting x 5 days IMMUNOSUPPRESSION WITH FEVER: -fevers improved with addition of Vanc/Aztreonam -source of infection appears to be R lower jaw swelling 2/2 trauma (hit hospital bed 4 days ago)-appreciate ID eval/recs -recent chemo on 08/30; he is not neutropenic at this time. -of note, fevers continued prior to blood administration and he tolerated the blood today -his IV sites include one peripheral IV in the forearm which does not have signs of infection -repeat urine negative, blood cultures are still pending. -Facial CT with contrast pending, cont broad spectrum abx. Appreciate ID recs. INTRACTABLE CHEMO INDUCED NAUSEA/VOMITING -supportive care methods including pain meds, antiemetics -although still vomiting he is keeping some food down and is able to ambulate around the floor independently -cont Zofran scheduled ANEMIA -s/p 2 U PRBCs yesterday with good response. -repeat CBC was ordered post-transfusion THROMBOCYTOPENIA: -multifactorial with recent chemo and now infection. -PLT transfusion this morning was only performed in preparation for OR procedure which was cancelled in light of infection; pt is not actively bleeding -cont to hold Lovenox at this time HYPERTENSION: -2/2 agitation from vomiting along with nausea and chronic pain -PRN Hydralazine for SBP>180 -cont with Norvasc per home regimen -continue efforts with antiemetics and pain meds LUNG CA -ADENOCARCINOMA -Follows with Dr. Haynes -Received chemo on 08/30 -pain present "all over", started "15 years ago" worse since Sat (5 days ago) -Fentanyl and Dilaudid per pain management team -cont bowel regimen -briefly discussed Palliative Care/Hospice with him today after he informed me that no further chemotherapy treatments would likely be pursued; he states that he is not interested in that at this time and that he will be pursuing second opinions for treatment in the near future. CHRONIC PAIN 2/2 long-standing neuropathy and current situation with cancer on chemotherapy Fentanyl at increased dose and Dilaudid PO -plan for trial shot for ultimate intrathecal pump placement, however, with fever, I would wait until fever has cleared. This was communicated to Pain team. IDDM -with hyperglycemia -close to goal -Not well controlled at baseline recent A1c 10.4 -SSI coverage/Lantus -pharmacy consulted for glycemic control DVT PROPHYLAXIS: Sq Lovenox CODE STATUS:FULL CODE Idalmis Lares DO [facility] Hospitalist Consultants: Heme/Onc, GI, ID Current Inpatient Medications: Current Inpatient Medications Medications (Trade) Dose Ordered Sig/Cal Route Start Time Stop Time Status Last Admin Dose Admin Acetaminophen (Tylenol Tab) 650 mg Q4H PRN PO 09/05/16 14:45 10/05/16 14:44 09/11/16 08:14 650 MG Al Hydrox/Mg Hydrox/Simethicone (Maalox Max Susp) 15 ml Q4H PRN PO 09/05/16 14:45 10/05/16 14:44 Magnesium Hydroxide (Milk Of Magnesia Susp) 30 ml Q6H PRN PO 09/05/16 14:45 10/05/16 14:44 Polyethylene (Miralax Powder Packet) 17 gm DAILY PRN PO 09/05/16 14:45 10/05/16 14:44 Zolpidem Tartrate 5 mg 5 mg HSZ PRN PO 09/05/16 14:45 10/05/16 14:44 09/10/16 22:51 5 MG Promethazine HCl/ Sodium Chloride (Phenergan Inj/ Nss 50ml) 50.5 ml @ 204 mls/hr Q6H PRN IV 09/05/16 14:45 10/05/16 14:44 09/10/16 08:18 204 MLS/HR Insulin Aspart (novoLOG ASPART) SLIDING SCALE If C... ACHS SC 09/05/16 16:00 10/05/16 15:59 09/11/16 13:03 5 UNITS Glucose (Glucose 40% Gel) 15-30 GRAMS 15 GRAMS... UD PRN PO 09/05/16 14:45 10/05/16 14:44 Glucose (Glucose Chew Tab) 4-8 Tablets 4 Tabl... UD PRN PO 09/05/16 14:45 10/05/16 14:44 Dextrose (Dextrose 50% 50ML Syringe) 25-50ML OF 50% DW IV FOR... UD PRN IV 09/05/16 14:45 10/05/16 14:44 Glucagon (Glucagon Inj) 1 mg UD PRN SQ 09/05/16 14:45 10/05/16 14:44 Miscellaneous Information (Consult Glycemic Management Pharmacy) 1 ea UD PRN N/A 09/05/16 14:51 10/05/16 14:50 Aspirin (Ecotrin Tab) 81 mg QAM PO 09/06/16 08:00 10/06/16 08:59 09/11/16 08:13 81 MG Gabapentin (Neurontin Cap) 600 mg TID PO 09/05/16 20:00 10/05/16 20:59 09/11/16 12:58 600 MG Magnesium Chloride (Slow-Mag Tab) 64 mg BID PO 09/05/16 20:00 10/05/16 20:59 09/11/16 08:17 64 MG Amlodipine Besylate (Norvasc Tab) 10 mg DAILY PO 09/06/16 08:00 10/06/16 08:59 09/11/16 08:12 10 MG Hydralazine HCl 5 mg 5 mg Q6H PRN IV. 09/06/16 22:00 10/06/16 21:59 Ondansetron HCl/ Dextrose (Zofran Inj/D5 50ml) 54 ml @ 216 mls/hr Q8H IV 09/07/16 10:00 10/07/16 09:59 09/11/16 09:34 216 MLS/HR Insulin Glargine (Lantus Solostar Pen) 12 unit HS SC 09/08/16 21:00 10/08/16 20:59 09/10/16 20:43 12 UNIT Hydromorphone HCl 4 mg 4 mg Q2H PRN PO 09/09/16 20:15 09/23/16 20:14 09/11/16 12:58 4 MG Aztreonam/Dextrose (Azactam IV/D5 100ml) 110 ml @ 100 mls/hr Q8H IV 09/10/16 18:30 09/12/16 18:29 09/11/16 09:36 100 MLS/HR Hydromorphone HCl (Dilaudid Inj) 0.5 mg Q4H PRN IV 09/10/16 22:45 09/24/16 22:44 09/11/16 11:43 0.5 MG Vancomycin HCl (Consult) 1 ea UD PRN N/A 09/11/16 08:30 10/11/16 08:29 Venlafaxine HCl 37.5 mg 37.5 mg QAM PO 09/11/16 10:30 10/11/16 10:29 09/11/16 12:58 37.5 MG Vancomycin HCl/ Sodium Chloride (Vancomycin Inj/ Nss 250ml) 275 ml @ 125 mls/hr Q16H IV 09/11/16 10:00 09/12/16 23:59 09/11/16 10:51 125 MLS/HR Fentanyl (Duragesic Patch) 150 mcg Q2D@1000 TD 09/11/16 10:00 09/25/16 09:59 09/11/16 10:44 150 MCG Miscellaneous (Fentanyl Patch Remove & Waste) 1 ea Q2D@0959 N/A 09/11/16 09:59 10/11/16 09:58 09/11/16 10:40 1 EA Miscellaneous Information (Check Fentanyl Patch Placement) 1 ea QS N/A 09/11/16 16:00 10/11/16 15:59 Pantoprazole Sodium (Protonix Tab) 40 mg BID PO 09/11/16 20:00 10/11/16 19:59
[2016-09-11] MEDS ORDERED: OPTIRAY 320 IV PRN (15:00)
[2016-09-11] MEDS ORDERED: SODIUM CHLORIDE 0.9% 1000ML 1,000 ML IV SCH (15:30)
--- NOTE | 2016-09-11 15:43 | DIAGNOSTIC IMAGING REPORT ---
MAXILLOFACIAL CT WITH CONTRAST CT DOSE: 198.87 mGy.cm CLINICAL HISTORY: Right lower lip swelling with purulent drainage. Neutropenia. Evaluate for abscess. TECHNIQUE: Helical axial images of the face were obtained following intravenous injection of 93 cc of Optiray 320 IV. Sagittal and coronal reconstructions were viewed. COMPARISON STUDY: None. FINDINGS: Visualized portions of the intracranial contents are unremarkable. There is mild to moderate mucosal thickening of the sinuses. Mastoid air cells are clear. There is extensive soft tissue swelling anterior to the right maxilla and right aspect of the mandible. There is infiltration. There is no rim-enhancing fluid collection to suggest an abscess. Multiple enlarged upper cervical lymph nodes are likely reactive. An index right level 1 node measures 2 x 1.6 cm. Epiglottis is normal. Major vasculature of the upper neck is patent. Multiple teeth are absent. There are numerous dental cavities. No periapical abscess is identified. IMPRESSION: 1. Extensive right inferior facial soft tissue swelling and infiltration anterior to the right aspect of the mandible and maxilla which suggests cellulitis. No rim-enhancing fluid collection to suggest abscess. This likely reflects an odontogenic process given numerous dental cavities. 2. Mild upper cervical lymphadenopathy which is likely reactive. Electronically signed by: Bryce Perez M.D. 09/11/2016 3:42 PM Dictated Date/Time: 09/11/2016 3:34 PM
[2016-09-11] MEDS ORDERED: CHECK FENTANYL PATCH PLACEMENT SCH (16:00)
[2016-09-11] MEDS: METRONIDAZOLE / NSS 500 MG in PREMIXED NSS 100 ML IV SCH (17:45)
[2016-09-11] MEDS: PANTOprazole SOD 40 MG TAB PO SCH (20:18)
[2016-09-11] MEDS ORDERED: INSULIN GLARGINE SOLOSTAR 100 UNITS/ML 3 ML PEN SC SCH (21:00)
[2016-09-11] MEDS: INSULIN GLARGINE SOLOSTAR 100 UNITS/ML 3 ML PEN SC SCH (21:40)
[2016-09-12] VITALS (7 sets, daily range): BP systolic 128–170; BP diastolic 70–96; PULSE 89–104; TEMP 36.4–37; O2SAT 96–100; BMI 26.5
[2016-09-12] MEDS: HYDROmorphone HCL 2 MG TAB PO PRN ×10 (00:57→23:53)
[2016-09-12] MEDS: VANCOMYCIN INJ 1,250 MG in SODIUM CHLORIDE 0.9% 250ML 250 ML IV SCH (01:35)
[2016-09-12] MEDS: ONDANSETRON INJ 8 MG in DEXTROSE 5% 50ML 50 ML IV SCH ×3 (01:36→19:13)
[2016-09-12] MEDS: METRONIDAZOLE / NSS 500 MG in PREMIXED NSS 100 ML IV SCH ×3 (01:38→17:42)
[2016-09-12] MEDS ORDERED: METRONIDAZOLE / NSS 500 MG in PREMIXED NSS 100 ML IV SCH (02:00)
[2016-09-12] MEDS: AZTREONAM IV 2,000 MG in DEXTROSE 5% 100ML 100 ML IV SCH ×3 (04:09→19:57)
[2016-09-12] MEDS: PROMETHAZINE HCL INJ 12.5 MG in SODIUM CHLORIDE 0.9% 50ML 50 ML IV PRN (05:13)
[2016-09-12 06:53] LABS: HEMATOCRIT 25.3 % (42-52); MEAN CELL VOLUME 82.1 fL (80-100); MEAN CORPUSCULAR HEMOGLOBIN 29.2 pg (25-34); MEAN CORPUSCULAR HGB CONC 35.6 g/dl (32-36); RED BLOOD COUNT 3.08 M/uL (4.7-6.1); WHITE BLOOD COUNT 6.12 K/uL (4.8-10.8)
[2016-09-12 07:32] LABS: BUN/CREATININE RATIO 17.4 (10-20); CALCIUM 8.2 mg/dl (8.5-10.1); CREATININE 0.96 mg/dl (0.60-1.40); MAGNESIUM 1.9 mg/dl (1.8-2.4); POTASSIUM 3.5 mmol/L (3.5-5.1)
[2016-09-12 08:45] LABS: BASO % 0.2 %; BASO ABS # 0.01 K/uL (0-0.2); COMPLETE YES; EOS % 1.8 %; IG% 3.6 %; LYMPH % 13.6 %; LYMPH ABS # 0.83 K/uL (1.2-3.4); MEAN PLATELET VOLUME 9.8 fL (7.4-10.4); MONO % 14.4 %; NEUT % 66.4 %; PLATELET COUNT 46 K/uL (130-400); TOXIC GRANULATION 2+
[2016-09-12] MEDS: PANTOprazole SOD 40 MG TAB PO SCH ×2 (09:23→19:14)
[2016-09-12] MEDS: VENLAFAXINE HCL XR 37.5 MG CAPXR PO SCH (09:23)
[2016-09-12] MEDS: AMLODIPINE BESYLATE 5 MG TAB PO SCH (09:24)
[2016-09-12] MEDS: ASPIRIN 81 MG ECTAB PO SCH (09:24)
[2016-09-12] MEDS: MAGNESIUM CHLORIDE 64MG DELAYED REL TAB PO SCH ×2 (09:24→19:14)
[2016-09-12] MEDS: GABAPENTIN 300 MG CAP PO SCH ×3 (09:24→19:14)
[2016-09-12] MEDS: CHECK FENTANYL PATCH PLACEMENT SCH ×4 (09:24→23:53)
[2016-09-12] MEDS: INSULIN ASPART 100 UNITS/ML 3 ML PEN SC SCH ×4 (09:32→20:43)
--- NOTE | 2016-09-12 12:17 | Pharmacy Progress Note ---
Pharmacy Abx Dose Short Note Date of Service September 12, 2016. Assessment & Plan Assessment 51 year old male receiving Vancomycin/Aztreonam/Flagyl IV for treatment of facial/lip cellulitis. Broad spectrum abx to be continued per ID at this time. Day # 3 of antimicrobial therapy. Plan Vancomycin * Renal function has improved; therefore Vancomycin dosing needs reassessed * Change to 1500 mg IV every 12 hours * Goal trough level for skin/soft tissue infections : ~15 mcg/mL * Trough ordered for: 09/13/16 @1130 prior to the 1200 dose. Pharmacy will continue to follow and will adjust dose/frequency as necessary. Thank you.
[2016-09-12] MEDS: VANCOMYCIN INJ 1,500 MG in SODIUM CHLORIDE 0.9% 500ML 500 ML IV SCH ×2 (12:36→23:50)
[2016-09-12] MEDS: HYDROmorphone INJ 1 MG/ML SYR IV PRN ×2 (12:43→19:58)
--- NOTE | 2016-09-12 13:29 | ENT CONSULTATION ---
DATE OF ADMISSION: 09/05/2016 DIAGNOSIS: Right lower lip hematoma versus abscess. 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 He fell against the cabinet striking his lower face and developed swelling of the right lower lip. PAST MEDICAL HISTORY: Positive for type 2 diabetes, hypertension and lung cancer. SURGERIES: Positive for T and A, cholecystectomy, lobectomy and total knee arthroplasty. FAMILY HISTORY: Negative. SOCIAL HISTORY: Nonsmoker. ALLERGIES: BEE STINGS AND PENICILLIN. REVIEW OF SYSTEMS: Otherwise, negative. PHYSICAL EXAMINATION: GENERAL: WN, WD male, alert and oriented x3. HEAD: Normocephalic. EYES: Normal. EARS: Tympanic membranes intact. NOSE: Nasal passages show a large septal perforation with significant swelling on the right side. Endoscopy was performed confirming no other lesions, other than the large septal perforation. THROAT: Normal with no sign of lesions or tumors. LIPS: The lower lip is swollen with drainage of serous type fluid from the right lower lip, there is no sign of dental abscess and no sign of submandibular or parotid abscess. NECK: Supple. HEART: RRR. LUNGS: Clear. IMPRESSION: Right lower lip hematoma from injury followed by a formation of seroma which appears to have drained spontaneously. He also has a septal perforation which appears to be old. The CT scans were reviewed, this did show a right frontal and ethmoid sinusitis and swelling of the right lower lip with no sign of abscess formation. RECOMMENDATIONS: The seroma appears to have drained spontaneously. No further intervention is needed.
--- NOTE | 2016-09-12 16:33 | Infectious Disease Progress Nt ---
Progress Note Date of Service September 12, 2016. Subjective Pt evaluation today including: conversation w/ patient, physical exam, chart review, lab review, review of studies, conversation w/ health and safety consultant (Dr. Lares), review of inpatient medication list Patient continues to have severe pain throughout his body related to his neuropathy. He also continues to have pain of the right side of his lower lip and right cheek. He states that his lip has been draining some serosanguineous few fluid this morning. His white blood cell count today was 6.12. His creatinine was 0.96. His CT of the face did show extensive right inferior facial soft tissue swelling infiltration anterior to the right aspect of the mandible and maxilla suggestive of cellulitis. No abscess was identified. Mild upper cervical lymphadenopathy was also noted. The patient is currently on IV vancomycin, aztreonam, and Flagyl. He overall tolerating these medications well. He does continue to have vomiting on an off after eating. All Other Systems: Reviewed and Negative Medications Current Inpatient Medications Medications (Trade) Dose Ordered Sig/Cal Route Start Time Stop Time Status Last Admin Dose Admin Acetaminophen (Tylenol Tab) 650 mg Q4H PRN PO 09/05/16 14:45 10/05/16 14:44 09/11/16 16:52 650 MG Al Hydrox/Mg Hydrox/Simethicone (Maalox Max Susp) 15 ml Q4H PRN PO 09/05/16 14:45 10/05/16 14:44 Magnesium Hydroxide (Milk Of Magnesia Susp) 30 ml Q6H PRN PO 09/05/16 14:45 10/05/16 14:44 Polyethylene (Miralax Powder Packet) 17 gm DAILY PRN PO 09/05/16 14:45 10/05/16 14:44 Zolpidem Tartrate 5 mg 5 mg HSZ PRN PO 09/05/16 14:45 10/05/16 14:44 09/10/16 22:51 5 MG Promethazine HCl/ Sodium Chloride (Phenergan Inj/ Nss 50ml) 50.5 ml @ 204 mls/hr Q6H PRN IV 09/05/16 14:45 10/05/16 14:44 09/12/16 05:13 204 MLS/HR Insulin Aspart (novoLOG ASPART) SLIDING SCALE If C... ACHS SC 09/05/16 16:00 10/05/16 15:59 09/12/16 12:38 6 UNITS Glucose (Glucose 40% Gel) 15-30 GRAMS 15 GRAMS... UD PRN PO 09/05/16 14:45 10/05/16 14:44 Glucose (Glucose Chew Tab) 4-8 Tablets 4 Tabl... UD PRN PO 09/05/16 14:45 10/05/16 14:44 Dextrose (Dextrose 50% 50ML Syringe) 25-50ML OF 50% DW IV FOR... UD PRN IV 09/05/16 14:45 10/05/16 14:44 Glucagon (Glucagon Inj) 1 mg UD PRN SQ 09/05/16 14:45 10/05/16 14:44 Miscellaneous Information (Consult Glycemic Management Pharmacy) 1 ea UD PRN N/A 09/05/16 14:51 10/05/16 14:50 Aspirin (Ecotrin Tab) 81 mg QAM PO 09/06/16 08:00 10/06/16 08:59 09/12/16 09:24 81 MG Gabapentin (Neurontin Cap) 600 mg TID PO 09/05/16 20:00 10/05/16 20:59 09/12/16 14:08 600 MG Magnesium Chloride (Slow-Mag Tab) 64 mg BID PO 09/05/16 20:00 10/05/16 20:59 09/12/16 09:24 64 MG Amlodipine Besylate (Norvasc Tab) 10 mg DAILY PO 09/06/16 08:00 10/06/16 08:59 09/12/16 09:24 10 MG Hydralazine HCl 5 mg 5 mg Q6H PRN IV. 09/06/16 22:00 10/06/16 21:59 Ondansetron HCl/ Dextrose (Zofran Inj/D5 50ml) 54 ml @ 216 mls/hr Q8H IV 09/07/16 10:00 10/07/16 09:59 09/12/16 10:16 216 MLS/HR Insulin Glargine (Lantus Solostar Pen) 12 unit HS SC 09/08/16 21:00 10/08/16 20:59 09/11/16 21:40 12 UNIT Hydromorphone HCl 4 mg 4 mg Q2H PRN PO 09/09/16 20:15 09/23/16 20:14 09/12/16 16:13 4 MG Aztreonam/Dextrose (Azactam IV/D5 100ml) 110 ml @ 100 mls/hr Q8H IV 09/10/16 18:30 09/20/16 18:29 09/12/16 11:40 100 MLS/HR Hydromorphone HCl (Dilaudid Inj) 0.5 mg Q4H PRN IV 09/10/16 22:45 09/24/16 22:44 09/12/16 12:43 0.5 MG Vancomycin HCl (Consult) 1 ea UD PRN N/A 09/11/16 08:30 10/11/16 08:29 Venlafaxine HCl (effeXOR EXTENDED REL CAP) 37.5 mg QAM PO 09/11/16 10:30 10/11/16 10:29 09/12/16 09:23 37.5 MG Fentanyl (Duragesic Patch) 150 mcg Q2D@1000 TD 09/11/16 10:00 09/25/16 09:59 09/11/16 10:44 150 MCG Miscellaneous (Fentanyl Patch Remove & Waste) 1 ea Q2D@0959 N/A 09/11/16 09:59 10/11/16 09:58 09/11/16 10:40 1 EA Miscellaneous Information (Check Fentanyl Patch Placement) 1 ea QS N/A 09/11/16 16:00 10/11/16 15:59 09/12/16 15:19 1 EA Pantoprazole Sodium (Protonix Tab) 40 mg BID PO 09/11/16 20:00 10/11/16 19:59 09/12/16 09:23 40 MG Ioversol 125 ml 125 ml UD PRN IV 09/11/16 15:00 09/15/16 14:59 Metronidazole 500 mg/Prmx 100 ml @ 100 mls/hr Q8H IV 09/11/16 18:00 09/21/16 17:59 09/12/16 09:27 100 MLS/HR Vancomycin HCl/ Sodium Chloride (Vancomycin Inj/ Nss 500ml) 530 ml @ 200 mls/hr Q12H IV 09/12/16 12:00 09/20/16 23:59 09/12/16 12:36 200 MLS/HR Objective Vital Signs Date Time Temp Pulse Resp B/P Pulse Ox O2 Delivery O2 Flow Rate FiO2 09/12/16 15:16 36.9 104 19 170/93 97 Room Air 09/12/16 11:40 36.9 92 16 153/96 100 Room Air 09/12/16 09:03 36.4 94 19 150/93 96 Room Air 09/12/16 08:52 Room Air 09/12/16 04:23 36.6 89 20 152/84 97 Room Air 09/12/16 00:01 Room Air 09/11/16 23:37 36.9 95 20 129/79 96 Room Air 09/11/16 20:32 37.2 94 20 134/76 97 Room Air 09/11/16 19:00 97 Room Air Physical Exam General Appearance: + mild distress, + thin Eyes: normal inspection, sclerae normal ENT: hearing grossly normal Neck: supple, trachea midline Respiratory/Chest: no respiratory distress, no accessory muscle use Cardiovascular: regular rate, rhythm Neurologic/Psychiatric: alert Skin: warm/dry, no rash, + pertinent finding (Continued erythema of the right side of the bottom lip. There is a small amount of purulence which is expressible from the top portion of the patient's lip. This area was cultured during my exam today.) Laboratory Results MAXILLOFACIAL CT WITH CONTRAST CT DOSE: 198.87 mGy.cm CLINICAL HISTORY: Right lower lip swelling with purulent drainage. Neutropenia. Evaluate for abscess. TECHNIQUE: Helical axial images of the face were obtained following intravenous injection of 93 cc of Optiray 320 IV. Sagittal and coronal reconstructions were viewed. COMPARISON STUDY: None. FINDINGS: Visualized portions of the intracranial contents are unremarkable. There is mild to moderate mucosal thickening of the sinuses. Mastoid air cells are clear. There is extensive soft tissue swelling anterior to the right maxilla and right aspect of the mandible. There is infiltration. There is no rim-enhancing fluid collection to suggest an abscess. Multiple enlarged upper cervical lymph nodes are likely reactive. An index right level 1 node measures 2 x 1.6 cm. Epiglottis is normal. Major vasculature of the upper neck is patent. Multiple teeth are absent. There are numerous dental cavities. No periapical abscess is identified. IMPRESSION: 1. Extensive right inferior facial soft tissue swelling and infiltration anterior to the right aspect of the mandible and maxilla which suggests cellulitis. No rim-enhancing fluid collection to suggest abscess. This likely reflects an odontogenic process given numerous dental cavities. 2. Mild upper cervical lymphadenopathy which is likely reactive. Item Value Date Time Urine Culture - Final Complete 09/10/16 2100 Urine , Clean Catch NO GROWTH - LESS THAN 1,000 COLONIES/ML Blood Culture - Preliminary Resulted 09/10/16 1851 Blood NO GROWTH TO DATE. Blood Culture - Preliminary Resulted 09/10/16 1845 Blood NO GROWTH TO DATE. Blood Culture - Final Complete 09/05/16 1257 Blood NO GROWTH Blood Culture - Final Complete 09/05/16 1218 Blood NO GROWTH Last 24 Hours Test 09/11/16 16:57 09/11/16 21:32 09/12/16 00:42 09/12/16 01:18 Bedside Glucose 154 mg/dl 246 mg/dl 52 mg/dl 79 mg/dl Test 09/12/16 04:11 09/12/16 06:29 09/12/16 09:02 09/12/16 11:32 Bedside Glucose 129 mg/dl 164 mg/dl 138 mg/dl White Blood Count 6.12 K/uL Red Blood Count 3.08 M/uL Hemoglobin 9.0 g/dL Hematocrit 25.3 % Mean Corpuscular Volume 82.1 fL Mean Corpuscular Hemoglobin 29.2 pg Mean Corpuscular Hemoglobin Concent 35.6 g/dl Platelet Count 46 K/uL Mean Platelet Volume 9.8 fL Neutrophils (%) (Auto) 66.4 % Lymphocytes (%) (Auto) 13.6 % Monocytes (%) (Auto) 14.4 % Eosinophils (%) (Auto) 1.8 % Basophils (%) (Auto) 0.2 % Neutrophils # (Auto) 4.07 K/uL Lymphocytes # (Auto) 0.83 K/uL Monocytes # (Auto) 0.88 K/uL Eosinophils # (Auto) 0.11 K/uL Basophils # (Auto) 0.01 K/uL RDW Standard Deviation 44.2 fL RDW Coefficient of Variation 14.6 % Immature Granulocyte % (Auto) 3.6 % Immature Granulocyte # (Auto) 0.22 K/uL Toxic Granulation 2+ Sodium Level 133 mmol/L Potassium Level 3.5 mmol/L Chloride Level 97 mmol/L Carbon Dioxide Level 33 mmol/L Anion Gap 3.0 mmol/L Blood Urea Nitrogen 17 mg/dl Creatinine 0.96 mg/dl Est Creatinine Clear Calc Drug Dose 94.0 ml/min Estimated GFR () 105.6 Estimated GFR (Non- 91.2 BUN/Creatinine Ratio 17.4 Random Glucose 133 mg/dl Calcium Level 8.2 mg/dl Magnesium Level 1.9 mg/dl Assessment and Plan Patient with Adenocarcinoma of the lung s/p recent chemotherapy, probable chemotherapy induced nausea and vomiting, and facial cellulitis. Wound culture was ordered today from the purulence expressed from his right bottom lip today. The patient will continue on IV vancomycin, aztreonam, and Flagyl pending culture results and further improvement. It is anticipated that this patient will continue to need a few days of IV antibiotic therapy until improvement Is seen. We will continue to follow this patient. PROVIDER ADDENDUM: Pt. reviewed with Ms. Munoz. Agree with above assessment.
--- NOTE | 2016-09-12 16:52 | Progress Note ---
Subjective Date of Service: September 12, 2016. Subjective Pt evaluation today including: conversation w/ patient, physical exam, lab review, review of studies, review of inpatient medication list Saw/examined the patient in room 410 He's doing okay, though still nauseous +painful/swollen lip persists draining pus from the lip Problem List Medical Problems: (1) Altered mental status Status: Acute (2) Anemia Status: Acute (3) Dehydration Status: Acute (4) Dehydration Status: Acute (5) Dehydration Status: Acute (6) Failure of outpatient treatment Status: Acute (7) Hypomagnesemia Status: Acute (8) Hypomagnesemia Status: Acute (9) Intractable vomiting Status: Acute (10) Intractable vomiting Status: Acute (11) Orthostatic hypotension Status: Acute (12) Vomiting Status: Acute Review of Systems Constitutional: + weakness, No chills, No fever Respiratory: No cough, No dyspnea at rest, No dyspnea on exertion, No hemoptysis, No shortness of breath, No sputum, No wheezing Cardiac: No chest pain, No edema, No palpitations Abdomen: + nausea, + problem reported (decreased PO intake), + vomiting, No GI bleeding, No constipation, No diarrhea, No pain Objective Vital Signs Date Time Temp Pulse Resp B/P Pulse Ox O2 Delivery O2 Flow Rate FiO2 09/12/16 15:16 36.9 104 19 170/93 97 Room Air 09/12/16 11:40 36.9 92 16 153/96 100 Room Air 09/12/16 09:03 36.4 94 19 150/93 96 Room Air 09/12/16 08:52 Room Air 09/12/16 04:23 36.6 89 20 152/84 97 Room Air 09/12/16 00:01 Room Air 09/11/16 23:37 36.9 95 20 129/79 96 Room Air 09/11/16 20:32 37.2 94 20 134/76 97 Room Air 09/11/16 19:00 97 Room Air Physical Exam General Appearance: + mild distress (due to nausea) ENT: + pertinent finding (swollen lip on the R side of his face; draining slightly into his mouth) Respiratory/Chest: lungs clear, normal breath sounds, no respiratory distress, no accessory muscle use Cardiovascular: regular rate, rhythm, no edema, no murmur Abdomen: normal bowel sounds, non tender, soft Extremities: normal inspection, no pedal edema Neurologic/Psychiatric: no motor/sensory deficits, alert, normal mood/affect Skin: normal color Lymphatic: no adenopathy Laboratory Results Last 24 Hours Test 09/11/16 16:57 09/11/16 21:32 09/12/16 00:42 09/12/16 01:18 Bedside Glucose 154 mg/dl 246 mg/dl 52 mg/dl 79 mg/dl Test 09/12/16 04:11 09/12/16 06:29 09/12/16 09:02 09/12/16 11:32 Bedside Glucose 129 mg/dl 164 mg/dl 138 mg/dl White Blood Count 6.12 K/uL Red Blood Count 3.08 M/uL Hemoglobin 9.0 g/dL Hematocrit 25.3 % Mean Corpuscular Volume 82.1 fL Mean Corpuscular Hemoglobin 29.2 pg Mean Corpuscular Hemoglobin Concent 35.6 g/dl Platelet Count 46 K/uL Mean Platelet Volume 9.8 fL Neutrophils (%) (Auto) 66.4 % Lymphocytes (%) (Auto) 13.6 % Monocytes (%) (Auto) 14.4 % Eosinophils (%) (Auto) 1.8 % Basophils (%) (Auto) 0.2 % Neutrophils # (Auto) 4.07 K/uL Lymphocytes # (Auto) 0.83 K/uL Monocytes # (Auto) 0.88 K/uL Eosinophils # (Auto) 0.11 K/uL Basophils # (Auto) 0.01 K/uL RDW Standard Deviation 44.2 fL RDW Coefficient of Variation 14.6 % Immature Granulocyte % (Auto) 3.6 % Immature Granulocyte # (Auto) 0.22 K/uL Toxic Granulation 2+ Sodium Level 133 mmol/L Potassium Level 3.5 mmol/L Chloride Level 97 mmol/L Carbon Dioxide Level 33 mmol/L Anion Gap 3.0 mmol/L Blood Urea Nitrogen 17 mg/dl Creatinine 0.96 mg/dl Est Creatinine Clear Calc Drug Dose 94.0 ml/min Estimated GFR () 105.6 Estimated GFR (Non- 91.2 BUN/Creatinine Ratio 17.4 Random Glucose 133 mg/dl Calcium Level 8.2 mg/dl Magnesium Level 1.9 mg/dl Assessment and Plan This is a 51 year old male with PMH of non-small cell lung CA of the left upper lung currently undergoing chemotherapy, uncontrolled, insulin-dependent DM2, presents with nausea/vomiting after chemotherapy on 08/30 Fever secondary to Facial Cellulitis in the setting of Immunosuppression was started on Vancomycin + Aztreonam appreciate ID input, will await culture results +pus drainage, culture sent out blood cultures no growth to date appreciate ENT input; no further intervention as the R lip is draining on its own receives chemotherapy secondary to lung carcinoma - presented with leukopenia/ neutropenia, which is improving Intractable Chemotherapy induced Nausea/Vomiting appreciate GI input, received Emend x1 initially Zofran, Phenergan, IVFs supportive care, can use Emend once weekly - if okay with GI, appreciate input Anemia in the setting of Lung Adenocarcinoma transfused total of 4 units PRBCs during this admission on 09/10, Hgb = 6.9 H/H is now 9.0 (09/12) Thrombocytopenia secondary to infectious process holding Lovenox at this time s/p platelet transfusion Platelets continue to be low; will trend with abx. use to treat HTN continue Norvasc 10mg daily Hydralazine PRN monitor BP and adjust accordingly Lung Adenocarcinoma appreciate Hem/Onc input received 3 out of 4 cycles of chemo continue pain management no palliative care input at this time Neoplasm Related Pain appreciate pain management input Fentanyl dose increased Effexor started no intrathecal pump at this time will try one time dose of intrathecal hydrocodone dose - but cannot due to thrombocytopenia Insulin Dependent DM2 uncontrolled at home, Ha1c ~ 10.4% Lantus 12 units qhs, insulin sliding scale appreciate pharmacy glycemic control DVT ppx Lovenox FULL CODE
[2016-09-12] MEDS: INSULIN GLARGINE SOLOSTAR 100 UNITS/ML 3 ML PEN SC SCH (21:17)
[2016-09-13] VITALS (7 sets, daily range): BP systolic 115–183; BP diastolic 66–93; PULSE 88–101; TEMP 36.5–36.9; O2SAT 92–98; BMI 27.1
[2016-09-13] MEDS: METRONIDAZOLE / NSS 500 MG in PREMIXED NSS 100 ML IV SCH ×3 (02:26→17:48)
[2016-09-13] MEDS: ONDANSETRON INJ 8 MG in DEXTROSE 5% 50ML 50 ML IV SCH ×3 (02:26→17:47)
[2016-09-13] MEDS: HYDROmorphone INJ 1 MG/ML SYR IV PRN ×5 (03:46→23:42)
[2016-09-13] MEDS: AZTREONAM IV 2,000 MG in DEXTROSE 5% 100ML 100 ML IV SCH ×3 (04:12→12:41)
[2016-09-13] MEDS: HYDROmorphone HCL 2 MG TAB PO PRN ×6 (05:13→21:59)
[2016-09-13 07:40] LABS: MEAN CELL VOLUME 82.4 fL (80-100); MEAN CORPUSCULAR HEMOGLOBIN 29.4 pg (25-34); MEAN CORPUSCULAR HGB CONC 35.7 g/dl (32-36); RED BLOOD COUNT 2.79 M/uL (4.7-6.1); WHITE BLOOD COUNT 6.53 K/uL (4.8-10.8)
[2016-09-13 07:43] LABS: MEAN PLATELET VOLUME 9.3 fL (7.4-10.4); PLATELET COUNT 53 K/uL (130-400)
[2016-09-13] MEDS: ASPIRIN 81 MG ECTAB PO SCH (08:02)
[2016-09-13] MEDS: GABAPENTIN 300 MG CAP PO SCH ×3 (08:02→19:45)
[2016-09-13] MEDS: AMLODIPINE BESYLATE 5 MG TAB PO SCH (08:02)
[2016-09-13] MEDS: PANTOprazole SOD 40 MG TAB PO SCH ×2 (08:02→19:46)
[2016-09-13] MEDS: CHECK FENTANYL PATCH PLACEMENT SCH ×3 (08:03→23:41)
[2016-09-13] MEDS: VENLAFAXINE HCL XR 37.5 MG CAPXR PO SCH (08:03)
[2016-09-13] MEDS: MAGNESIUM CHLORIDE 64MG DELAYED REL TAB PO SCH ×2 (08:03→19:45)
[2016-09-13 08:14] LABS: BUN/CREATININE RATIO 16.1 (10-20); CREATININE 0.95 mg/dl (0.60-1.40); MAGNESIUM 1.7 mg/dl (1.8-2.4)
[2016-09-13] MEDS: INSULIN ASPART 100 UNITS/ML 3 ML PEN SC SCH ×4 (08:54→20:37)
[2016-09-13] MEDS: PROMETHAZINE HCL INJ 12.5 MG in SODIUM CHLORIDE 0.9% 50ML 50 ML IV PRN (08:54)
[2016-09-13] MEDS: FENTANYL 75 MCG/HR TDSY TD SCH (10:15)
[2016-09-13] MEDS: FENTANYL PATCH REMOVE & WASTE SCH (10:15)
[2016-09-13] MEDS ORDERED: VANCOMYCIN TROUGH SCH (11:30)
[2016-09-13] MEDS: VANCOMYCIN INJ 1,500 MG in SODIUM CHLORIDE 0.9% 500ML 500 ML IV SCH (12:06)
--- NOTE | 2016-09-13 13:47 | Pharmacy Progress Note ---
Glycemic: Assessment & Plan Date of Service September 13, 2016. Assessment & Plan Outpatient Anti-diabetic Regimen: * Lantus 25 units HS, Humalog CF = 10 * A1c = 10.4 % from 08/06/16 ASSESSMENT: * ADA & AACE recommend a goal blood sugar range 140-180 mg/dl for the majority of critically ill & non-critically ill patients. However, more stringent targets may be selected in individual cases. 09/13/16 * Patient received 31 units of insulin yesterday, with BSGs ranging from 125- 167mg/dL. * Patient's BSGs have been within goal range thus far today. Would still like to see slightly better glycemic control in a 51yo patient, so will increase Lantus dose slightly this evening and re-evaluate tomorrow. * Though PO intake has improved, patient still appears to be struggling with N/ V -- will be cautious with changes in insulin regimen in an effort to minimize the risk of hypoglycemia. PLAN FOR INPATIENT GLYCEMIC CONTROL: * Basal insulin with LANTUS 15 units SQ HS * Correctional Insulin with NOVOLOG per scale ACHS or Q6hrs while NPO * Goal Range: Low 120 mg/dL - High 160 mg/dL * Continue - Correction Factor: 20 mg/dL/unit * Continue - Nutritional / Prandial insulin per carb ratio of 1 unit per 7 grams CHO consumed DISCHARGE PLANNING: * Expect that patient may resume home regimen on discharge, but recent A1c indicates that glycemic control is sub-optimal. Could consider increasing dose of Lantus. * Please note that the plan above was derived based on current level of insulin resistance and hospital stress. These recommendations are appropriate for inpatient admission only. Plan of care upon discharge will need to be reassessed to avoid potential outpatient hypo/hyperglycemia. Thank you.
--- NOTE | 2016-09-13 13:52 | Pharmacy Progress Note ---
Pharmacy Abx Dose Progress Nt Date of Service September 13, 2016. Pharmacy Dosing Scope The patient is currently receiving the following antimicrobial agents per Pharmacy consult: Vancomycin 1500 mg IV every 12 hours Objective Height (Feet): 5 Height (Inches): 10.00 Weight (Kilograms): 85.600 Vital Signs (Past 12Hrs) Vital Signs Past 12 Hours Date Time Temp Pulse Resp B/P Pulse Ox O2 Delivery O2 Flow Rate FiO2 09/13/16 11:53 36.9 90 18 115/72 93 Room Air 09/13/16 08:00 Room Air 09/13/16 07:08 36.7 90 18 121/74 92 Room Air 09/13/16 03:39 36.5 93 20 118/72 98 Room Air Lab Results (24Hrs) Test 09/13/16 07:15 09/13/16 07:26 09/13/16 11:23 09/13/16 11:49 White Blood Count 6.53 K/uL (4.8-10.8) Red Blood Count 2.79 M/uL (4.7-6.1) Hemoglobin 8.2 g/dL (14.0-18.0) Hematocrit 23.0 % (42-52) Mean Corpuscular Volume 82.4 fL (80-100) Mean Corpuscular Hemoglobin 29.4 pg (25-34) Mean Corpuscular Hemoglobin Concent 35.7 g/dl (32-36) RDW Standard Deviation 45.3 fL (36.4-46.3) RDW Coefficient of Variation 14.9 % (11.5-14.5) Platelet Count 53 K/uL (130-400) Mean Platelet Volume 9.3 fL (7.4-10.4) Sodium Level 137 mmol/L (136-145) Potassium Level 4.0 mmol/L (3.5-5.1) Chloride Level 100 mmol/L (98-107) Carbon Dioxide Level 30 mmol/L (21-32) Anion Gap 7.0 mmol/L (3-11) Blood Urea Nitrogen 15 mg/dl (7-18) Creatinine 0.95 mg/dl (0.60-1.40) Est Creatinine Clear Calc Drug Dose 95.0 ml/min Estimated GFR () 107.0 Estimated GFR (Non- 92.3 BUN/Creatinine Ratio 16.1 (10-20) Random Glucose 121 mg/dl (70-99) Calcium Level 8.0 mg/dl (8.5-10.1) Magnesium Level 1.7 mg/dl (1.8-2.4) Bedside Glucose 120 mg/dl (70-99) 159 mg/dl (70-99) Vancomycin Level Trough 21.5 mcg/ml (SEE COMMENT) Micro Results Date/Time Source Procedure Growth Status 09/10/16 18:51 Blood Blood Culture - Preliminary NO GROWTH TO DATE. Resulted 09/10/16 18:45 Blood Blood Culture - Preliminary NO GROWTH TO DATE. Resulted 09/05/16 12:57 Blood Blood Culture - Final NO GROWTH Complete 09/05/16 12:18 Blood Blood Culture - Final NO GROWTH Complete 09/10/16 21:00 Urine , Clean Catch Urine Culture - Final NO GROWTH - LESS THAN 1,000 COLONIES/ML Complete 09/12/16 11:00 Drainage - Surface Mouth Gram Stain - Final Resulted 09/12/16 11:00 Wound Culture - Preliminary Staphylococcus Aureus Resulted Risk Factors for Resistance * Immunocompromised (chronic steroid therapy, chemotherapy, immunomodulators) Assessment & Plan Assessment 51 year old male receiving vancomycin + Azactam + Flagyl for treatment of lip/ facial cellulitis Day # 4/10 of antimicrobial therapy Plan Vancomycin IV * Trough level of 21.5 mcg/mL is supratherapeutic * Change to 1500 mg IV every 14 hours * Goal trough level for above indication : ~15 mcg/mL (15-20 if potentially MRSA ) * Trough level ordered for: 09/16/16 prior to the 1000 dose Pharmacy will continue to follow and will adjust dose/frequency as necessary. Thank you.
[2016-09-13] MEDS ORDERED: MAGNESIUM SULFATE 1GM / D5W 1 GM in PREMIXED IN D5W 100 ML IV ONE (14:00)
--- NOTE | 2016-09-13 15:16 | Progress Note ---
Subjective Date of Service: September 13, 2016. Subjective Pt evaluation today including: conversation w/ patient, physical exam, lab review, review of studies, review of inpatient medication list Saw/examined the patient in room 410 +nausea/vomiting persists +pain at R lip no fevers/chills Problem List Medical Problems: (1) Altered mental status Status: Acute (2) Anemia Status: Acute (3) Dehydration Status: Acute (4) Dehydration Status: Acute (5) Dehydration Status: Acute (6) Failure of outpatient treatment Status: Acute (7) Hypomagnesemia Status: Acute (8) Hypomagnesemia Status: Acute (9) Intractable vomiting Status: Acute (10) Intractable vomiting Status: Acute (11) Orthostatic hypotension Status: Acute (12) Vomiting Status: Acute Review of Systems Constitutional: + weakness, No chills, No fever ENT: + problem reported (pain - R face/lip), No trouble swallowing Respiratory: No shortness of breath Cardiac: No chest pain Abdomen: + nausea, + vomiting, No constipation, No diarrhea, No pain Medications Current Inpatient Medications Medications (Trade) Dose Ordered Sig/Cal Route Start Time Stop Time Status Last Admin Dose Admin Acetaminophen (Tylenol Tab) 650 mg Q4H PRN PO 09/05/16 14:45 10/05/16 14:44 09/11/16 16:52 650 MG Al Hydrox/Mg Hydrox/Simethicone (Maalox Max Susp) 15 ml Q4H PRN PO 09/05/16 14:45 10/05/16 14:44 Magnesium Hydroxide (Milk Of Magnesia Susp) 30 ml Q6H PRN PO 09/05/16 14:45 10/05/16 14:44 Polyethylene (Miralax Powder Packet) 17 gm DAILY PRN PO 09/05/16 14:45 10/05/16 14:44 Zolpidem Tartrate 5 mg 5 mg HSZ PRN PO 09/05/16 14:45 10/05/16 14:44 09/10/16 22:51 5 MG Promethazine HCl/ Sodium Chloride (Phenergan Inj/ Nss 50ml) 50.5 ml @ 204 mls/hr Q6H PRN IV 09/05/16 14:45 10/05/16 14:44 09/13/16 08:54 204 MLS/HR Insulin Aspart (novoLOG ASPART) SLIDING SCALE If C... ACHS SC 09/05/16 16:00 10/05/16 15:59 09/13/16 12:49 9 UNITS Glucose (Glucose 40% Gel) 15-30 GRAMS 15 GRAMS... UD PRN PO 09/05/16 14:45 10/05/16 14:44 Glucose (Glucose Chew Tab) 4-8 Tablets 4 Tabl... UD PRN PO 09/05/16 14:45 10/05/16 14:44 Dextrose (Dextrose 50% 50ML Syringe) 25-50ML OF 50% DW IV FOR... UD PRN IV 09/05/16 14:45 10/05/16 14:44 Glucagon (Glucagon Inj) 1 mg UD PRN SQ 09/05/16 14:45 10/05/16 14:44 Miscellaneous Information (Consult Glycemic Management Pharmacy) 1 ea UD PRN N/A 09/05/16 14:51 10/05/16 14:50 Aspirin (Ecotrin Tab) 81 mg QAM PO 09/06/16 08:00 10/06/16 08:59 09/13/16 08:02 81 MG Gabapentin (Neurontin Cap) 600 mg TID PO 09/05/16 20:00 10/05/16 20:59 09/13/16 14:27 600 MG Magnesium Chloride (Slow-Mag Tab) 64 mg BID PO 09/05/16 20:00 10/05/16 20:59 09/13/16 08:03 64 MG Amlodipine Besylate (Norvasc Tab) 10 mg DAILY PO 09/06/16 08:00 10/06/16 08:59 09/13/16 08:02 10 MG Hydralazine HCl 5 mg 5 mg Q6H PRN IV. 09/06/16 22:00 10/06/16 21:59 Ondansetron HCl/ Dextrose (Zofran Inj/D5 50ml) 54 ml @ 216 mls/hr Q8H IV 09/07/16 10:00 10/07/16 09:59 09/13/16 10:07 216 MLS/HR Hydromorphone HCl 4 mg 4 mg Q2H PRN PO 09/09/16 20:15 09/23/16 20:14 09/13/16 10:07 4 MG Aztreonam/Dextrose (Azactam IV/D5 100ml) 110 ml @ 100 mls/hr Q8H IV 09/10/16 18:30 09/20/16 18:29 09/13/16 12:41 100 MLS/HR Hydromorphone HCl (Dilaudid Inj) 0.5 mg Q4H PRN IV 09/10/16 22:45 09/24/16 22:44 09/13/16 12:50 0.5 MG Vancomycin HCl (Consult) 1 ea UD PRN N/A 09/11/16 08:30 10/11/16 08:29 Venlafaxine HCl (effeXOR EXTENDED REL CAP) 37.5 mg QAM PO 09/11/16 10:30 10/11/16 10:29 09/13/16 08:03 37.5 MG Fentanyl (Duragesic Patch) 150 mcg Q2D@1000 TD 09/11/16 10:00 09/25/16 09:59 09/13/16 10:15 150 MCG Miscellaneous (Fentanyl Patch Remove & Waste) 1 ea Q2D@0959 N/A 09/11/16 09:59 10/11/16 09:58 09/13/16 10:15 1 EA Miscellaneous Information (Check Fentanyl Patch Placement) 1 ea QS N/A 09/11/16 16:00 10/11/16 15:59 09/13/16 08:03 1 EA Pantoprazole Sodium (Protonix Tab) 40 mg BID PO 09/11/16 20:00 10/11/16 19:59 09/13/16 08:02 40 MG Ioversol 125 ml 125 ml UD PRN IV 09/11/16 15:00 09/15/16 14:59 Metronidazole/Prmx (Flagyl / Nss/ Premixed Nss) 100 ml @ 100 mls/hr Q8H IV 09/11/16 18:00 09/21/16 17:59 09/13/16 10:07 100 MLS/HR Insulin Glargine 15 unit 15 unit HS SC 09/13/16 21:00 10/13/16 20:59 Vancomycin HCl/ Sodium Chloride (Vancomycin Inj/ Nss 500ml) 530 ml @ 200 mls/hr Q14H IV 09/14/16 02:00 09/19/16 23:59 Objective Vital Signs Date Time Temp Pulse Resp B/P Pulse Ox O2 Delivery O2 Flow Rate FiO2 09/13/16 11:53 36.9 90 18 115/72 93 Room Air 09/13/16 08:00 Room Air 09/13/16 07:08 36.7 90 18 121/74 92 Room Air 09/13/16 03:39 36.5 93 20 118/72 98 Room Air 09/13/16 00:00 Room Air 09/12/16 22:58 36.7 90 20 128/70 96 09/12/16 19:41 37.0 100 20 148/83 96 09/12/16 16:00 97 Room Air 09/12/16 15:16 36.9 104 19 170/93 97 Room Air Physical Exam General Appearance: no apparent distress ENT: + pertinent finding (swelling of R bottom lip, intermittent drainage) Respiratory/Chest: lungs clear, normal breath sounds, no respiratory distress, no accessory muscle use Cardiovascular: regular rate, rhythm, no edema, no murmur Abdomen: normal bowel sounds, non tender, soft Extremities: normal inspection, no pedal edema Laboratory Results Last 24 Hours Test 09/12/16 16:55 09/12/16 20:22 09/13/16 07:15 09/13/16 07:26 Bedside Glucose 167 mg/dl 125 mg/dl 120 mg/dl White Blood Count 6.53 K/uL Red Blood Count 2.79 M/uL Hemoglobin 8.2 g/dL Hematocrit 23.0 % Mean Corpuscular Volume 82.4 fL Mean Corpuscular Hemoglobin 29.4 pg Mean Corpuscular Hemoglobin Concent 35.7 g/dl RDW Standard Deviation 45.3 fL RDW Coefficient of Variation 14.9 % Platelet Count 53 K/uL Mean Platelet Volume 9.3 fL Sodium Level 137 mmol/L Potassium Level 4.0 mmol/L Chloride Level 100 mmol/L Carbon Dioxide Level 30 mmol/L Anion Gap 7.0 mmol/L Blood Urea Nitrogen 15 mg/dl Creatinine 0.95 mg/dl Est Creatinine Clear Calc Drug Dose 95.0 ml/min Estimated GFR () 107.0 Estimated GFR (Non- 92.3 BUN/Creatinine Ratio 16.1 Random Glucose 121 mg/dl Calcium Level 8.0 mg/dl Magnesium Level 1.7 mg/dl Test 09/13/16 11:23 09/13/16 11:49 Bedside Glucose 159 mg/dl Vancomycin Level Trough 21.5 mcg/ml Assessment and Plan This is a 51 year old male with PMH of non-small cell lung CA of the left upper lung currently undergoing chemotherapy, uncontrolled, insulin-dependent DM2, presents with nausea/vomiting after chemotherapy on 08/30 Fever secondary to Facial Cellulitis in the setting of Immunosuppression 09/13 appreciate ID input micro - Staph, further speciation pending, sensitivities pending continue IV abx. for a few more days 09/12 was started on Vancomycin + Aztreonam appreciate ID input, will await culture results +pus drainage, culture sent out blood cultures no growth to date appreciate ENT input; no further intervention as the R lip is draining on its own receives chemotherapy secondary to lung carcinoma - presented with leukopenia/ neutropenia, which is improving Intractable Chemotherapy induced Nausea/Vomiting 09/13 may need another dose of Emend 09/12 appreciate GI input, received Emend x1 initially Zofran, Phenergan, IVFs supportive care, can use Emend once weekly - if okay with GI, appreciate input Anemia in the setting of Lung Adenocarcinoma 09/13 Hgb stable today 09/12 transfused total of 4 units PRBCs during this admission on 09/10, Hgb = 6.9 H/H is now 9.0 (09/12) Thrombocytopenia 09/13 monitor platelets expect improvement as infection clears 09/12 secondary to infectious process holding Lovenox at this time s/p platelet transfusion Platelets continue to be low; will trend with abx. use to treat HTN continue Norvasc 10mg daily Hydralazine PRN monitor BP and adjust accordingly Lung Adenocarcinoma appreciate Hem/Onc input received 3 out of 4 cycles of chemo continue pain management no palliative care input at this time Neoplasm Related Pain appreciate pain management input Fentanyl dose increased Effexor started no intrathecal pump at this time will try one time dose of intrathecal hydrocodone dose - but cannot due to thrombocytopenia Insulin Dependent DM2 uncontrolled at home, Ha1c ~ 10.4% Lantus 12 units qhs, insulin sliding scale appreciate pharmacy glycemic control DVT ppx Lovenox FULL CODE
--- NOTE | 2016-09-13 15:26 | PROGRESS NOTE ---
DATE: 09/13/2016 DIAGNOSES: Lower lip hematoma and septal perforation. SUBJECTIVE: The patient feels better. The lip continues to drain serous material. OBJECTIVE: The lip is subsiding in the swelling. IMPRESSION: Lower lip hematoma and septal perforation. PLAN: The lip has drained spontaneously. The septal perforation should just be observed. No surgical intervention is contemplated.
--- NOTE | 2016-09-13 16:42 | Infectious Disease Progress Nt ---
Progress Note Date of Service September 13, 2016. Subjective Pt evaluation today including: conversation w/ patient, physical exam, chart review, lab review, review of studies, review of inpatient medication list Patient appears to be slightly improving today. His white blood cell count was 6.3. He continues to have severe pain throughout his body. His creatinine was 0.95. The culture taken from bottom lip yesterday is growing Staph aureus pending sensitivities. He is currently on IV vancomycin, metronidazole, and Azactam. He is tolerating these medications. All Other Systems: Reviewed and Negative Medications Current Inpatient Medications Medications (Trade) Dose Ordered Sig/Cal Route Start Time Stop Time Status Last Admin Dose Admin Acetaminophen (Tylenol Tab) 650 mg Q4H PRN PO 09/05/16 14:45 10/05/16 14:44 09/11/16 16:52 650 MG Al Hydrox/Mg Hydrox/Simethicone (Maalox Max Susp) 15 ml Q4H PRN PO 09/05/16 14:45 10/05/16 14:44 Magnesium Hydroxide (Milk Of Magnesia Susp) 30 ml Q6H PRN PO 09/05/16 14:45 10/05/16 14:44 Polyethylene (Miralax Powder Packet) 17 gm DAILY PRN PO 09/05/16 14:45 10/05/16 14:44 Zolpidem Tartrate 5 mg 5 mg HSZ PRN PO 09/05/16 14:45 10/05/16 14:44 09/10/16 22:51 5 MG Promethazine HCl/ Sodium Chloride (Phenergan Inj/ Nss 50ml) 50.5 ml @ 204 mls/hr Q6H PRN IV 09/05/16 14:45 10/05/16 14:44 09/13/16 08:54 204 MLS/HR Insulin Aspart (novoLOG ASPART) SLIDING SCALE If C... ACHS SC 09/05/16 16:00 10/05/16 15:59 09/13/16 12:49 9 UNITS Glucose (Glucose 40% Gel) 15-30 GRAMS 15 GRAMS... UD PRN PO 09/05/16 14:45 10/05/16 14:44 Glucose (Glucose Chew Tab) 4-8 Tablets 4 Tabl... UD PRN PO 09/05/16 14:45 10/05/16 14:44 Dextrose (Dextrose 50% 50ML Syringe) 25-50ML OF 50% DW IV FOR... UD PRN IV 09/05/16 14:45 10/05/16 14:44 Glucagon (Glucagon Inj) 1 mg UD PRN SQ 09/05/16 14:45 10/05/16 14:44 Miscellaneous Information (Consult Glycemic Management Pharmacy) 1 ea UD PRN N/A 09/05/16 14:51 10/05/16 14:50 Aspirin (Ecotrin Tab) 81 mg QAM PO 09/06/16 08:00 10/06/16 08:59 09/13/16 08:02 81 MG Gabapentin (Neurontin Cap) 600 mg TID PO 09/05/16 20:00 10/05/16 20:59 09/13/16 14:27 600 MG Magnesium Chloride (Slow-Mag Tab) 64 mg BID PO 09/05/16 20:00 10/05/16 20:59 09/13/16 08:03 64 MG Amlodipine Besylate (Norvasc Tab) 10 mg DAILY PO 09/06/16 08:00 10/06/16 08:59 09/13/16 08:02 10 MG Hydralazine HCl 5 mg 5 mg Q6H PRN IV. 09/06/16 22:00 10/06/16 21:59 Ondansetron HCl/ Dextrose (Zofran Inj/D5 50ml) 54 ml @ 216 mls/hr Q8H IV 09/07/16 10:00 10/07/16 09:59 09/13/16 10:07 216 MLS/HR Hydromorphone HCl 4 mg 4 mg Q2H PRN PO 09/09/16 20:15 09/23/16 20:14 09/13/16 10:07 4 MG Aztreonam/Dextrose (Azactam IV/D5 100ml) 110 ml @ 100 mls/hr Q8H IV 09/10/16 18:30 09/20/16 18:29 09/13/16 12:41 100 MLS/HR Hydromorphone HCl (Dilaudid Inj) 0.5 mg Q4H PRN IV 09/10/16 22:45 09/24/16 22:44 09/13/16 12:50 0.5 MG Vancomycin HCl (Consult) 1 ea UD PRN N/A 09/11/16 08:30 10/11/16 08:29 Venlafaxine HCl (effeXOR EXTENDED REL CAP) 37.5 mg QAM PO 09/11/16 10:30 10/11/16 10:29 09/13/16 08:03 37.5 MG Fentanyl (Duragesic Patch) 150 mcg Q2D@1000 TD 09/11/16 10:00 09/25/16 09:59 09/13/16 10:15 150 MCG Miscellaneous (Fentanyl Patch Remove & Waste) 1 ea Q2D@0959 N/A 09/11/16 09:59 10/11/16 09:58 09/13/16 10:15 1 EA Miscellaneous Information (Check Fentanyl Patch Placement) 1 ea QS N/A 09/11/16 16:00 10/11/16 15:59 09/13/16 15:36 1 EA Pantoprazole Sodium (Protonix Tab) 40 mg BID PO 09/11/16 20:00 10/11/16 19:59 09/13/16 08:02 40 MG Ioversol 125 ml 125 ml UD PRN IV 09/11/16 15:00 09/15/16 14:59 Metronidazole/Prmx (Flagyl / Nss/ Premixed Nss) 100 ml @ 100 mls/hr Q8H IV 09/11/16 18:00 09/21/16 17:59 09/13/16 10:07 100 MLS/HR Insulin Glargine 15 unit 15 unit HS SC 09/13/16 21:00 10/13/16 20:59 Vancomycin HCl/ Sodium Chloride (Vancomycin Inj/ Nss 500ml) 530 ml @ 200 mls/hr Q14H IV 09/14/16 02:00 09/19/16 23:59 Objective Vital Signs Date Time Temp Pulse Resp B/P Pulse Ox O2 Delivery O2 Flow Rate FiO2 09/13/16 16:00 Room Air 09/13/16 15:40 36.8 88 16 129/77 92 Room Air 09/13/16 11:53 36.9 90 18 115/72 93 Room Air 09/13/16 08:00 Room Air 09/13/16 07:08 36.7 90 18 121/74 92 Room Air 09/13/16 03:39 36.5 93 20 118/72 98 Room Air 09/13/16 00:00 Room Air 09/12/16 22:58 36.7 90 20 128/70 96 09/12/16 19:41 37.0 100 20 148/83 96 Physical Exam General Appearance: WD/WN, + mild distress Eyes: normal inspection, sclerae normal ENT: + pertinent finding (Continued moderate edema of the right bottom lip and right jaw.) Neck: supple, trachea midline Respiratory/Chest: no respiratory distress, no accessory muscle use Cardiovascular: regular rate, rhythm Extremities: normal range of motion Neurologic/Psychiatric: alert, + depressed affect Skin: + pertinent finding (Continued mild erythema of the right bottom lip) Laboratory Results RUN DATE: 09/13/16 [facility] PAGE 1 RUN TIME: 932 Specimen Inquiry PATIENT: NIKHIL MARTINS LOC: [facility] U # : [id number] AGE/SX: 51/M ROOM: 10 REG : 09/05/[address]: Navya Barfield DO : 1965 BED: 1 DIS : STATUS: ADM IN TLOC: SPEC #: [id number] VADIM: 09/12/16 STATUS: RES REQ #: [id number] RECD: 09/12/[address]: Silvana Munoz . , MAURICIO SOURCE: DRAIN-SURF ENTR: 09/12/[address] [facility] [address]: Ike Roca MD [facility]: Alfredito Juarez, Bran Casiano M.D., Keriann N., Navya Soria, Sarah Soto M.D. Kelly, Colleen A., Idalmis Weeks , Upendra. Levy M.D. ORDERED: SURF WND CU/SMR COMMENTS: Specimen Comment From bottom lip Has Specimen Been Obtained/Collected? Y Procedure Result Verified Site GRAM STAIN Final 09/12/16 RESULT NO WBCs SEEN NO ORGANISMS SEEN SURFACE WOUND CULTURE Preliminary 09/13/16 Organism 1 STAPHYLOCOCCUS AUREUS QUANITY FEW SENS SENSITIVITY TO FOLLOW +MIXWOUND PLUS LOW COUNTS OF PROBABLE ORAL MILAN Item Value Date Time Gram Stain - Final Resulted 09/12/16 1100 Drainage - Surface Mouth Last 24 Hours Test 09/12/16 16:55 09/12/16 20:22 09/13/16 07:15 09/13/16 07:26 Bedside Glucose 167 mg/dl 125 mg/dl 120 mg/dl White Blood Count 6.53 K/uL Red Blood Count 2.79 M/uL Hemoglobin 8.2 g/dL Hematocrit 23.0 % Mean Corpuscular Volume 82.4 fL Mean Corpuscular Hemoglobin 29.4 pg Mean Corpuscular Hemoglobin Concent 35.7 g/dl RDW Standard Deviation 45.3 fL RDW Coefficient of Variation 14.9 % Platelet Count 53 K/uL Mean Platelet Volume 9.3 fL Sodium Level 137 mmol/L Potassium Level 4.0 mmol/L Chloride Level 100 mmol/L Carbon Dioxide Level 30 mmol/L Anion Gap 7.0 mmol/L Blood Urea Nitrogen 15 mg/dl Creatinine 0.95 mg/dl Est Creatinine Clear Calc Drug Dose 95.0 ml/min Estimated GFR () 107.0 Estimated GFR (Non- 92.3 BUN/Creatinine Ratio 16.1 Random Glucose 121 mg/dl Calcium Level 8.0 mg/dl Magnesium Level 1.7 mg/dl Test 09/13/16 11:23 09/13/16 11:49 Bedside Glucose 159 mg/dl Vancomycin Level Trough 21.5 mcg/ml Assessment and Plan Patient with Adenocarcinoma of the lung s/p recent chemotherapy, probable chemotherapy induced nausea and vomiting, and facial cellulitis. Wound culture currently growing Staph aureus pending sensitivities. The patient is currently on IV vancomycin, aztreonam, and Flagyl pending culture results. This patient likely could transition to p.o. antibiotic therapy pending his culture results. Will discontinue IV aztreonam. Feel that the patient likely should continue p.o. Flagyl plus any antibiotic for his Staph aureus once sensitivities are available. This will cover other potential mouth organisms as well. The patient likely will need to complete at least 7-10 more days of antibiotic therapy once transitioned to PO. PROVIDER ADDENDUM: Patient reviewed with Ms. Munoz. Agree with above assessment.
[2016-09-13] MEDS: INSULIN GLARGINE SOLOSTAR 100 UNITS/ML 3 ML PEN SC SCH (20:38)
[2016-09-14] VITALS (7 sets, daily range): BP systolic 138–159; BP diastolic 83–91; PULSE 86–94; TEMP 36.5–36.8; O2SAT 92–99; BMI 27.0
[2016-09-14] MEDS: METRONIDAZOLE / NSS 500 MG in PREMIXED NSS 100 ML IV SCH ×2 (01:55→10:25)
[2016-09-14] MEDS: HYDROmorphone HCL 2 MG TAB PO PRN ×7 (01:56→23:43)
[2016-09-14] MEDS: ONDANSETRON INJ 8 MG in DEXTROSE 5% 50ML 50 ML IV SCH ×3 (01:56→18:21)
[2016-09-14] MEDS ORDERED: VANCOMYCIN INJ 1,500 MG in SODIUM CHLORIDE 0.9% 500ML 500 ML IV SCH (02:00)
[2016-09-14] MEDS: ZOLPIDEM TARTRATE 5 MG TAB PO PRN (03:34)
[2016-09-14 06:04] LABS: HEMATOCRIT 24.1 % (42-52); MEAN CELL VOLUME 83.7 fL (80-100); MEAN CORPUSCULAR HEMOGLOBIN 29.2 pg (25-34); MEAN CORPUSCULAR HGB CONC 34.9 g/dl (32-36); RED BLOOD COUNT 2.88 M/uL (4.7-6.1); WHITE BLOOD COUNT 6.82 K/uL (4.8-10.8)
[2016-09-14 06:19] LABS: MEAN PLATELET VOLUME 8.3 fL (7.4-10.4); PLATELET COUNT 68 K/uL (130-400)
[2016-09-14 06:56] LABS: CALCIUM 7.9 mg/dl (8.5-10.1); CREATININE 0.92 mg/dl (0.60-1.40); MAGNESIUM 1.8 mg/dl (1.8-2.4); POTASSIUM 4.3 mmol/L (3.5-5.1)
[2016-09-14 07:24] LABS: ESTIMATED AVERAGE GLUCOSE 166 mg/dl; HA1C FLAG Normal (Normal)
[2016-09-14] MEDS: CHECK FENTANYL PATCH PLACEMENT SCH ×3 (07:50→23:43)
[2016-09-14] MEDS: ASPIRIN 81 MG ECTAB PO SCH (07:50)
[2016-09-14] MEDS: AMLODIPINE BESYLATE 5 MG TAB PO SCH (07:50)
[2016-09-14] MEDS: GABAPENTIN 300 MG CAP PO SCH ×3 (07:50→19:52)
[2016-09-14] MEDS: PANTOprazole SOD 40 MG TAB PO SCH ×2 (07:51→19:51)
[2016-09-14] MEDS: MAGNESIUM CHLORIDE 64MG DELAYED REL TAB PO SCH ×2 (07:51→19:51)
[2016-09-14] MEDS: VENLAFAXINE HCL XR 37.5 MG CAPXR PO SCH (07:51)
[2016-09-14] MEDS: HYDROmorphone INJ 1 MG/ML SYR IV PRN ×3 (08:39→19:50)
[2016-09-14] MEDS: INSULIN ASPART 100 UNITS/ML 3 ML PEN SC SCH ×4 (08:46→20:54)
[2016-09-14] MEDS: PROMETHAZINE HCL INJ 12.5 MG in SODIUM CHLORIDE 0.9% 50ML 50 ML IV PRN (09:01)
--- NOTE | 2016-09-14 10:47 | Progress Note ---
Subjective Date of Service: September 14, 2016. Subjective no overnight events. wbc improved. remains afebrile. wound culture from lip with mssa, pcn allergy. on vanco and flagyl. tolerating well. blood cultures remain negative. Problem List Medical Problems: (1) Altered mental status Status: Acute (2) Anemia Status: Acute (3) Dehydration Status: Acute (4) Dehydration Status: Acute (5) Dehydration Status: Acute (6) Failure of outpatient treatment Status: Acute (7) Hypomagnesemia Status: Acute (8) Hypomagnesemia Status: Acute (9) Intractable vomiting Status: Acute (10) Intractable vomiting Status: Acute (11) Orthostatic hypotension Status: Acute (12) Vomiting Status: Acute Objective Vital Signs Date Time Temp Pulse Resp B/P Pulse Ox O2 Delivery O2 Flow Rate FiO2 09/14/16 08:00 Room Air 09/14/16 07:35 36.5 86 16 138/83 99 Room Air 09/14/16 04:19 36.6 88 16 148/84 92 Room Air 09/14/16 00:08 36.8 87 18 144/88 97 Room Air 09/14/16 00:00 96 Room Air 09/13/16 23:15 36.8 94 20 116/66 96 Room Air 09/13/16 20:36 162/89 09/13/16 20:00 Room Air 09/13/16 19:46 36.5 101 18 183/93 97 Room Air 09/13/16 16:00 Room Air 09/13/16 15:40 36.8 88 16 129/77 92 Room Air 09/13/16 11:53 36.9 90 18 115/72 93 Room Air Laboratory Results Item Value Date Time Gram Stain - Final Resulted 09/12/16 1100 Drainage - Surface Mouth Blood Culture - Preliminary Resulted 09/10/16 1851 Blood NO GROWTH TO DATE. Blood Culture - Preliminary Resulted 09/10/16 1845 Blood NO GROWTH TO DATE. Last 24 Hours Test 09/13/16 11:23 09/13/16 11:49 09/13/16 16:33 09/13/16 20:02 Bedside Glucose 159 mg/dl 205 mg/dl 172 mg/dl Vancomycin Level Trough 21.5 mcg/ml Test 09/14/16 05:56 09/14/16 07:24 White Blood Count 6.82 K/uL Red Blood Count 2.88 M/uL Hemoglobin 8.4 g/dL Hematocrit 24.1 % Mean Corpuscular Volume 83.7 fL Mean Corpuscular Hemoglobin 29.2 pg Mean Corpuscular Hemoglobin Concent 34.9 g/dl RDW Standard Deviation 46.1 fL RDW Coefficient of Variation 14.9 % Platelet Count 68 K/uL Mean Platelet Volume 8.3 fL Sodium Level 140 mmol/L Potassium Level 4.3 mmol/L Chloride Level 103 mmol/L Carbon Dioxide Level 31 mmol/L Anion Gap 6.0 mmol/L Blood Urea Nitrogen 13 mg/dl Creatinine 0.92 mg/dl Est Creatinine Clear Calc Drug Dose 98.1 ml/min Estimated GFR () 111.2 Estimated GFR (Non- 96.0 BUN/Creatinine Ratio 14.0 Random Glucose 160 mg/dl Estimated Average Glucose 166 mg/dl Hemoglobin A1c 7.4 % Calcium Level 7.9 mg/dl Magnesium Level 1.8 mg/dl Bedside Glucose 188 mg/dl Assessment and Plan (1) Facial cellulitis Assessment & Plan: can maintain abx for now, upon d/c could d/c on po clinda 300mg po tid x 10 days. this will also treat oral anaerobes. local care. no new ID recs.
--- NOTE | 2016-09-14 10:59 | Progress Note ---
Subjective Date of Service: September 14, 2016. Subjective Pt evaluation today including: conversation w/ patient, physical exam, lab review, review of studies, review of inpatient medication list Saw/examined the patient in room 410 he is having +nausea today with a few episodes of vomiting pain also persists lip swelling decreased Problem List Medical Problems: (1) Altered mental status Status: Acute (2) Anemia Status: Acute (3) Dehydration Status: Acute (4) Dehydration Status: Acute (5) Dehydration Status: Acute (6) Failure of outpatient treatment Status: Acute (7) Hypomagnesemia Status: Acute (8) Hypomagnesemia Status: Acute (9) Intractable vomiting Status: Acute (10) Intractable vomiting Status: Acute (11) Orthostatic hypotension Status: Acute (12) Vomiting Status: Acute Review of Systems Constitutional: No chills, No fever, No weakness Respiratory: No shortness of breath Cardiac: No chest pain Abdomen: + nausea, + vomiting, No diarrhea, No pain Musculoskeletal: + joint pain (chronic, diffuse) Medications Current Inpatient Medications Medications (Trade) Dose Ordered Sig/Cal Route Start Time Stop Time Status Last Admin Dose Admin Acetaminophen (Tylenol Tab) 650 mg Q4H PRN PO 09/05/16 14:45 10/05/16 14:44 09/11/16 16:52 650 MG Al Hydrox/Mg Hydrox/Simethicone (Maalox Max Susp) 15 ml Q4H PRN PO 09/05/16 14:45 10/05/16 14:44 Magnesium Hydroxide (Milk Of Magnesia Susp) 30 ml Q6H PRN PO 09/05/16 14:45 10/05/16 14:44 Polyethylene (Miralax Powder Packet) 17 gm DAILY PRN PO 09/05/16 14:45 10/05/16 14:44 Zolpidem Tartrate 5 mg 5 mg HSZ PRN PO 09/05/16 14:45 10/05/16 14:44 09/14/16 03:34 5 MG Promethazine HCl/ Sodium Chloride (Phenergan Inj/ Nss 50ml) 50.5 ml @ 204 mls/hr Q6H PRN IV 09/05/16 14:45 10/05/16 14:44 09/14/16 09:01 204 MLS/HR Insulin Aspart (novoLOG ASPART) SLIDING SCALE If C... ACHS SC 09/05/16 16:00 10/05/16 15:59 09/14/16 08:46 2 UNITS Glucose (Glucose 40% Gel) 15-30 GRAMS 15 GRAMS... UD PRN PO 09/05/16 14:45 10/05/16 14:44 Glucose (Glucose Chew Tab) 4-8 Tablets 4 Tabl... UD PRN PO 09/05/16 14:45 10/05/16 14:44 Dextrose (Dextrose 50% 50ML Syringe) 25-50ML OF 50% DW IV FOR... UD PRN IV 09/05/16 14:45 10/05/16 14:44 Glucagon (Glucagon Inj) 1 mg UD PRN SQ 09/05/16 14:45 10/05/16 14:44 Miscellaneous Information (Consult Glycemic Management Pharmacy) 1 ea UD PRN N/A 09/05/16 14:51 10/05/16 14:50 Aspirin (Ecotrin Tab) 81 mg QAM PO 09/06/16 08:00 10/06/16 08:59 09/14/16 07:50 81 MG Gabapentin (Neurontin Cap) 600 mg TID PO 09/05/16 20:00 10/05/16 20:59 09/14/16 07:50 600 MG Magnesium Chloride (Slow-Mag Tab) 64 mg BID PO 09/05/16 20:00 10/05/16 20:59 09/14/16 07:51 64 MG Amlodipine Besylate (Norvasc Tab) 10 mg DAILY PO 09/06/16 08:00 10/06/16 08:59 09/14/16 07:50 10 MG Hydralazine HCl 5 mg 5 mg Q6H PRN IV. 09/06/16 22:00 10/06/16 21:59 Ondansetron HCl/ Dextrose (Zofran Inj/D5 50ml) 54 ml @ 216 mls/hr Q8H IV 09/07/16 10:00 10/07/16 09:59 09/14/16 10:24 216 MLS/HR Hydromorphone HCl (Dilaudid Tab) 4 mg Q2H PRN PO 09/09/16 20:15 09/23/16 20:14 09/14/16 07:49 4 MG Hydromorphone HCl (Dilaudid Inj) 0.5 mg Q4H PRN IV 09/10/16 22:45 09/24/16 22:44 09/14/16 08:39 0.5 MG Vancomycin HCl (Consult) 1 ea UD PRN N/A 09/11/16 08:30 10/11/16 08:29 Venlafaxine HCl (effeXOR EXTENDED REL CAP) 37.5 mg QAM PO 09/11/16 10:30 10/11/16 10:29 09/14/16 07:51 37.5 MG Fentanyl (Duragesic Patch) 150 mcg Q2D@1000 TD 09/11/16 10:00 09/25/16 09:59 09/13/16 10:15 150 MCG Miscellaneous (Fentanyl Patch Remove & Waste) 1 ea Q2D@0959 N/A 09/11/16 09:59 10/11/16 09:58 09/13/16 10:15 1 EA Miscellaneous Information (Check Fentanyl Patch Placement) 1 ea QS N/A 09/11/16 16:00 10/11/16 15:59 09/14/16 07:50 1 EA Pantoprazole Sodium (Protonix Tab) 40 mg BID PO 09/11/16 20:00 10/11/16 19:59 09/14/16 07:51 40 MG Ioversol 125 ml 125 ml UD PRN IV 09/11/16 15:00 09/15/16 14:59 Metronidazole/Prmx (Flagyl / Nss/ Premixed Nss) 100 ml @ 100 mls/hr Q8H IV 09/11/16 18:00 09/21/16 17:59 09/14/16 10:25 100 MLS/HR Insulin Glargine 15 unit 15 unit HS SC 09/13/16 21:00 10/13/16 20:59 09/13/16 20:38 15 UNIT Vancomycin HCl 1500 mg/Sodium Chloride 530 ml @ 200 mls/hr Q14H IV 09/14/16 02:00 09/19/16 23:59 09/14/16 01:56 200 MLS/HR Fosaprepitant/ Sodium Chloride (Emend Inj/Nss 100ml) 115.0333 ml @ 450 mls/hr TODAY@1100 IV 09/14/16 11:00 09/14/16 14:00 Objective Vital Signs Date Time Temp Pulse Resp B/P Pulse Ox O2 Delivery O2 Flow Rate FiO2 09/14/16 08:00 Room Air 09/14/16 07:35 36.5 86 16 138/83 99 Room Air 09/14/16 04:19 36.6 88 16 148/84 92 Room Air 09/14/16 00:08 36.8 87 18 144/88 97 Room Air 09/14/16 00:00 96 Room Air 09/13/16 23:15 36.8 94 20 116/66 96 Room Air 09/13/16 20:36 162/89 09/13/16 20:00 Room Air 09/13/16 19:46 36.5 101 18 183/93 97 Room Air 09/13/16 16:00 Room Air 09/13/16 15:40 36.8 88 16 129/77 92 Room Air 09/13/16 11:53 36.9 90 18 115/72 93 Room Air Physical Exam General Appearance: no apparent distress ENT: + pertinent finding (+lip swelling) Respiratory/Chest: chest non-tender, lungs clear, normal breath sounds, no respiratory distress, no accessory muscle use Cardiovascular: regular rate, rhythm, no edema, no murmur Extremities: normal inspection, no pedal edema Neurologic/Psychiatric: no motor/sensory deficits, alert, normal mood/affect Laboratory Results Last 24 Hours Test 09/13/16 11:23 09/13/16 11:49 09/13/16 16:33 09/13/16 20:02 Bedside Glucose 159 mg/dl 205 mg/dl 172 mg/dl Vancomycin Level Trough 21.5 mcg/ml Test 09/14/16 05:56 09/14/16 07:24 White Blood Count 6.82 K/uL Red Blood Count 2.88 M/uL Hemoglobin 8.4 g/dL Hematocrit 24.1 % Mean Corpuscular Volume 83.7 fL Mean Corpuscular Hemoglobin 29.2 pg Mean Corpuscular Hemoglobin Concent 34.9 g/dl RDW Standard Deviation 46.1 fL RDW Coefficient of Variation 14.9 % Platelet Count 68 K/uL Mean Platelet Volume 8.3 fL Sodium Level 140 mmol/L Potassium Level 4.3 mmol/L Chloride Level 103 mmol/L Carbon Dioxide Level 31 mmol/L Anion Gap 6.0 mmol/L Blood Urea Nitrogen 13 mg/dl Creatinine 0.92 mg/dl Est Creatinine Clear Calc Drug Dose 98.1 ml/min Estimated GFR () 111.2 Estimated GFR (Non- 96.0 BUN/Creatinine Ratio 14.0 Random Glucose 160 mg/dl Estimated Average Glucose 166 mg/dl Hemoglobin A1c 7.4 % Calcium Level 7.9 mg/dl Magnesium Level 1.8 mg/dl Bedside Glucose 188 mg/dl Assessment and Plan This is a 51 year old male with PMH of non-small cell lung CA of the left upper lung currently undergoing chemotherapy, uncontrolled, insulin-dependent DM2, presents with nausea/vomiting after chemotherapy on 08/30 Fever secondary to Facial Cellulitis in the setting of Immunosuppression 09/14 facial swelling, lip swelling on R side, improving ENT with no further management at this time as its draining on its own micro - MSSA; appreciate ID input, will switch to Clindamycin x 10 days on discharge 09/13 appreciate ID input micro - Staph, further speciation pending, sensitivities pending continue IV abx. for a few more days 09/12 was started on Vancomycin + Aztreonam appreciate ID input, will await culture results +pus drainage, culture sent out blood cultures no growth to date appreciate ENT input; no further intervention as the R lip is draining on its own receives chemotherapy secondary to lung carcinoma - presented with leukopenia/ neutropenia, which is improving Intractable Chemotherapy induced Nausea/Vomiting 09/14 will give another dose of Emend once nausea has improved and PO intake improves, we can discharge home 09/13 may need another dose of Emend 09/12 appreciate GI input, received Emend x1 initially Zofran, Phenergan, IVFs supportive care, can use Emend once weekly - if okay with GI, appreciate input Anemia in the setting of Lung Adenocarcinoma 09/13 Hgb stable today 09/12 transfused total of 4 units PRBCs during this admission on 09/10, Hgb = 6.9 H/H is now 9.0 (09/12) Thrombocytopenia 09/13 monitor platelets expect improvement as infection clears 09/12 secondary to infectious process holding Lovenox at this time s/p platelet transfusion Platelets continue to be low; will trend with abx. use to treat HTN continue Norvasc 10mg daily Hydralazine PRN monitor BP and adjust accordingly Lung Adenocarcinoma appreciate Hem/Onc input received 3 out of 4 cycles of chemo continue pain management no palliative care input at this time Neoplasm Related Pain appreciate pain management input Fentanyl dose increased Effexor started no intrathecal pump at this time will try one time dose of intrathecal hydrocodone dose - but cannot due to thrombocytopenia Insulin Dependent DM2 uncontrolled at home, Ha1c ~ 10.4% Lantus 12 units qhs, insulin sliding scale appreciate pharmacy glycemic control DVT ppx Lovenox FULL CODE
[2016-09-14] MEDS ORDERED: FOSAPREPITANT DIMEGLUMINE INJ 115 MG in SODIUM CHLORIDE 0.9% 100ML 111.2 ML IV SCH (11:00)
[2016-09-14] MEDS: CLINDAMYCIN HCL 150 MG CAP PO SCH ×2 (14:11→19:51)
[2016-09-14] MEDS: INSULIN GLARGINE SOLOSTAR 100 UNITS/ML 3 ML PEN SC SCH (20:56)
[2016-09-15] VITALS (11 sets, daily range): BP systolic 151–185; BP diastolic 82–112; PULSE 89–99; TEMP 36.3–36.8; O2SAT 96–100; BMI 27.5
[2016-09-15] MEDS: HYDROmorphone INJ 1 MG/ML SYR IV PRN ×5 (00:50→19:54)
[2016-09-15] MEDS: ZOLPIDEM TARTRATE 5 MG TAB PO PRN (00:50)
[2016-09-15] MEDS: ONDANSETRON INJ 8 MG in DEXTROSE 5% 50ML 50 ML IV SCH ×3 (02:11→17:28)
[2016-09-15] MEDS: HYDROmorphone HCL 2 MG TAB PO PRN ×7 (06:18→23:16)
[2016-09-15 07:31] LABS: BUN/CREATININE RATIO 10.9 (10-20); CALCIUM 8.4 mg/dl (8.5-10.1); MAGNESIUM 1.8 mg/dl (1.8-2.4)
[2016-09-15 07:39] LABS: MEAN CELL VOLUME 84.3 fL (80-100); MEAN CORPUSCULAR HEMOGLOBIN 27.9 pg (25-34); MEAN CORPUSCULAR HGB CONC 33.1 g/dl (32-36); MEAN PLATELET VOLUME 8.4 fL (7.4-10.4); PLT ESTIMATE NORMAL; RED BLOOD COUNT 3.44 M/uL (4.7-6.1); WHITE BLOOD COUNT 7.94 K/uL (4.8-10.8)
[2016-09-15] MEDS: CHECK FENTANYL PATCH PLACEMENT SCH ×3 (07:51→23:34)
[2016-09-15] MEDS: ASPIRIN 81 MG ECTAB PO SCH (07:53)
[2016-09-15] MEDS: CLINDAMYCIN HCL 150 MG CAP PO SCH ×3 (07:53→19:56)
[2016-09-15] MEDS: MAGNESIUM CHLORIDE 64MG DELAYED REL TAB PO SCH ×2 (07:54→19:56)
[2016-09-15] MEDS: VENLAFAXINE HCL XR 37.5 MG CAPXR PO SCH (07:54)
[2016-09-15] MEDS: PANTOprazole SOD 40 MG TAB PO SCH ×2 (07:54→19:57)
[2016-09-15] MEDS: GABAPENTIN 300 MG CAP PO SCH ×3 (07:54→19:56)
[2016-09-15] MEDS: AMLODIPINE BESYLATE 5 MG TAB PO SCH (07:55)
[2016-09-15] MEDS: INSULIN ASPART 100 UNITS/ML 3 ML PEN SC SCH ×4 (08:40→21:06)
[2016-09-15 09:34] LABS: PLATELET COUNT 125 K/uL (130-400)
[2016-09-15] MEDS: FENTANYL PATCH REMOVE & WASTE SCH (10:05)
[2016-09-15] MEDS: FENTANYL 75 MCG/HR TDSY TD SCH (10:09)
--- NOTE | 2016-09-15 11:05 | Pharmacy Progress Note ---
Glycemic Control: Progress Nt Date of Service September 15, 2016. Scope Glycemic Pharmacist consulted by Marilin Chahal on 09/05/16 for glycemic control and to write orders per [facility] inpatient glycemic control protocol. Objective Accuchecks BSG (last 24hrs): Test 09/14/16 11:32 09/14/16 16:40 09/14/16 20:13 09/15/16 05:55 Bedside Glucose 165 mg/dl (70-99) 82 mg/dl (70-99) 84 mg/dl (70-99) Random Glucose 103 mg/dl (70-99) Test 09/15/16 07:45 Bedside Glucose 127 mg/dl (70-99) Laboratory Data (last 24hrs) Test 09/15/16 05:55 Anion Gap 4.0 mmol/L BUN/Creatinine Ratio 10.9 Blood Urea Nitrogen 11 mg/dl Creatinine 1.00 mg/dl Potassium Level 4.0 mmol/L Sodium Level 139 mmol/L White Blood Count 7.94 K/uL HbA1c: Test 09/14/16 05:56 Hemoglobin A1c 7.4 % (4.5-5.6) H Recent Pertinent Medications Outpatient Anti-diabetic Regimen: * Lantus 25 units SQ q Hs * Humalog SSI with CF: 10mg/dL/unit * DXM with chemotherapy The patient is currently receiving: * Basal insulin: * Lantus 15 units SQ q HS * Bolus Insulin: * NovoLog SQ ACHS - Goal Range: Low 120 mg/dL - High 160 mg/dL - Correction Factor: 20 mg/dL/unit - Carb ratio of 1 unit per 7 grams CHO consumed Risk Factors for Insulin Resistance: * Infection: Vancomycin and Flagyl IV --> clindamycin PO * IVF: Zofran IV q8H (mixed in dextrose) * Diet: tolerated breakfast this AM - is c/o n/v at times Assessment & Plan ASSESSMENT: * ADA & AACE recommend a goal blood sugar range 140-180 mg/dl for the majority of critically ill & non-critically ill patients. However, more stringent targets may be selected in individual cases. 09/13/16 * Patient received 31 units of insulin yesterday, with BSGs ranging from 125- 167mg/dL. * Patient's BSGs have been within goal range thus far today. Would still like to see slightly better glycemic control in a 51yo patient, so will increase Lantus dose slightly this evening and re-evaluate tomorrow. * Though PO intake has improved, patient still appears to be struggling with N/ V -- will be cautious with changes in insulin regimen in an effort to minimize the risk of hypoglycemia. 09/15/16 * BSGs trended downward yesterday with the increase in basal insulin. Today, fasting fasting is slightly below goal range. This, in addition to IV ABX being transitioned to PO and overall insulin needs decreasing --> decrease Lantus back to 12 units * Similarly, it appeared that NovoLog parameters may have been too aggressive yesterday (BSGs trending down throughout the day) * Loosen correction factor and carb ratio * A1c 10.4% 08/2016 --> 7.4% 09/2016 * having hypoglycemic events? PLAN FOR INPATIENT GLYCEMIC CONTROL: * Basal insulin: * LANTUS 12 units SQ HS * Bolus Insulin: * NOVOLOG SQ ACHS or Q6hrs while NPO - Goal Range: Low 120 mg/dL - High 160 mg/dL - Correction Factor: 30 mg/dL/unit - Carb ratio of 1 unit per 10 grams CHO consumed DISCHARGE PLANNING: * Expect that patient may resume home regimen on discharge. May consider closer follow up as A1c has had a dramatic exchange underwriting consultant last month. * Please note that the plan above was derived based on current level of insulin resistance and hospital stress. These recommendations are appropriate for inpatient admission only. Plan of care upon discharge will need to be reassessed to avoid potential outpatient hypo/hyperglycemia. Thank you.
--- NOTE | 2016-09-15 11:57 | Progress Note ---
Subjective Date of Service: September 15, 2016. Subjective Pt evaluation today including: conversation w/ patient, physical exam, lab review, review of studies, review of inpatient medication list Saw/examined the patient in room 410 He's doing slightly better than yesterday nausea improved, but still having difficulty keeping everything down states he feels weak and having trouble with balance Problem List Medical Problems: (1) Altered mental status Status: Acute (2) Anemia Status: Acute (3) Dehydration Status: Acute (4) Dehydration Status: Acute (5) Dehydration Status: Acute (6) Failure of outpatient treatment Status: Acute (7) Hypomagnesemia Status: Acute (8) Hypomagnesemia Status: Acute (9) Intractable vomiting Status: Acute (10) Intractable vomiting Status: Acute (11) Orthostatic hypotension Status: Acute (12) Vomiting Status: Acute Review of Systems Constitutional: + weakness, No chills, No fever Respiratory: No shortness of breath Cardiac: No chest pain Abdomen: + nausea, + vomiting, No GI bleeding, No constipation, No diarrhea, No pain Musculoskeletal: + joint pain, + muscle pain Neurologic: + balance problems, + weakness, No memory loss, No numbness/ tingling, No paralysis, No vertigo Medications Current Inpatient Medications Medications (Trade) Dose Ordered Sig/Cal Route Start Time Stop Time Status Last Admin Dose Admin Acetaminophen (Tylenol Tab) 650 mg Q4H PRN PO 09/05/16 14:45 10/05/16 14:44 09/11/16 16:52 650 MG Al Hydrox/Mg Hydrox/Simethicone (Maalox Max Susp) 15 ml Q4H PRN PO 09/05/16 14:45 10/05/16 14:44 Magnesium Hydroxide (Milk Of Magnesia Susp) 30 ml Q6H PRN PO 09/05/16 14:45 10/05/16 14:44 Polyethylene (Miralax Powder Packet) 17 gm DAILY PRN PO 09/05/16 14:45 10/05/16 14:44 Zolpidem Tartrate 5 mg 5 mg HSZ PRN PO 09/05/16 14:45 10/05/16 14:44 09/15/16 00:50 5 MG Promethazine HCl/ Sodium Chloride (Phenergan Inj/ Nss 50ml) 50.5 ml @ 204 mls/hr Q6H PRN IV 09/05/16 14:45 10/05/16 14:44 09/14/16 09:01 204 MLS/HR Insulin Aspart (novoLOG ASPART) SLIDING SCALE If C... ACHS SC 09/05/16 16:00 10/05/16 15:59 09/15/16 08:40 4 UNITS Glucose (Glucose 40% Gel) 15-30 GRAMS 15 GRAMS... UD PRN PO 09/05/16 14:45 10/05/16 14:44 Glucose (Glucose Chew Tab) 4-8 Tablets 4 Tabl... UD PRN PO 09/05/16 14:45 10/05/16 14:44 Dextrose (Dextrose 50% 50ML Syringe) 25-50ML OF 50% DW IV FOR... UD PRN IV 09/05/16 14:45 10/05/16 14:44 Glucagon (Glucagon Inj) 1 mg UD PRN SQ 09/05/16 14:45 10/05/16 14:44 Miscellaneous Information (Consult Glycemic Management Pharmacy) 1 ea UD PRN N/A 09/05/16 14:51 10/05/16 14:50 Aspirin (Ecotrin Tab) 81 mg QAM PO 09/06/16 08:00 10/06/16 08:59 09/15/16 07:53 81 MG Gabapentin (Neurontin Cap) 600 mg TID PO 09/05/16 20:00 10/05/16 20:59 09/15/16 07:54 600 MG Magnesium Chloride (Slow-Mag Tab) 64 mg BID PO 09/05/16 20:00 10/05/16 20:59 09/15/16 07:54 64 MG Amlodipine Besylate (Norvasc Tab) 10 mg DAILY PO 09/06/16 08:00 10/06/16 08:59 09/15/16 07:55 10 MG Hydralazine HCl 5 mg 5 mg Q6H PRN IV. 09/06/16 22:00 10/06/16 21:59 Ondansetron HCl/ Dextrose (Zofran Inj/D5 50ml) 54 ml @ 216 mls/hr Q8H IV 09/07/16 10:00 10/07/16 09:59 09/15/16 10:15 216 MLS/HR Hydromorphone HCl (Dilaudid Tab) 4 mg Q2H PRN PO 09/09/16 20:15 09/23/16 20:14 09/15/16 08:43 4 MG Hydromorphone HCl (Dilaudid Inj) 0.5 mg Q4H PRN IV 09/10/16 22:45 09/24/16 22:44 09/15/16 10:36 0.5 MG Venlafaxine HCl (effeXOR EXTENDED REL CAP) 37.5 mg QAM PO 09/11/16 10:30 10/11/16 10:29 09/15/16 07:54 37.5 MG Fentanyl (Duragesic Patch) 150 mcg Q2D@1000 TD 09/11/16 10:00 09/25/16 09:59 09/15/16 10:09 150 MCG Miscellaneous (Fentanyl Patch Remove & Waste) 1 ea Q2D@0959 N/A 09/11/16 09:59 10/11/16 09:58 09/15/16 10:05 1 EA Miscellaneous Information (Check Fentanyl Patch Placement) 1 ea QS N/A 09/11/16 16:00 10/11/16 15:59 09/15/16 07:51 1 EA Pantoprazole Sodium (Protonix Tab) 40 mg BID PO 09/11/16 20:00 10/11/16 19:59 09/15/16 07:54 40 MG Ioversol (Optiray 320) 125 ml UD PRN IV 09/11/16 15:00 09/15/16 14:59 Clindamycin HCl (Cleocin Cap) 300 mg TID PO 09/14/16 14:00 09/24/16 13:59 09/15/16 07:53 300 MG Insulin Glargine (Lantus Solostar Pen) 12 unit HS SC 09/15/16 21:00 10/15/16 20:59 Objective Vital Signs Date Time Temp Pulse Resp B/P Pulse Ox O2 Delivery O2 Flow Rate FiO2 09/15/16 11:02 94 166/92 09/15/16 08:35 96 185/112 09/15/16 07:45 Room Air 09/15/16 07:32 36.6 89 18 152/86 96 Room Air 09/15/16 06:13 93 152/82 09/15/16 05:00 36.3 92 20 171/95 97 Room Air 09/14/16 23:59 Room Air 09/14/16 23:39 36.6 94 16 159/91 95 Room Air 09/14/16 19:51 36.5 91 16 156/90 94 Room Air 09/14/16 16:30 Room Air Physical Exam General Appearance: no apparent distress ENT: + pertinent finding (+lip swelling R bottom lip, improving) Respiratory/Chest: no respiratory distress, no accessory muscle use Extremities: normal inspection, no pedal edema Neurologic/Psychiatric: no motor/sensory deficits, alert, normal mood/affect Laboratory Results Last 24 Hours Test 09/14/16 16:40 09/14/16 20:13 09/15/16 05:55 09/15/16 07:45 Bedside Glucose 82 mg/dl 84 mg/dl 127 mg/dl White Blood Count 7.94 K/uL Red Blood Count 3.44 M/uL Hemoglobin 9.6 g/dL Hematocrit 29.0 % Mean Corpuscular Volume 84.3 fL Mean Corpuscular Hemoglobin 27.9 pg Mean Corpuscular Hemoglobin Concent 33.1 g/dl RDW Standard Deviation 46.1 fL RDW Coefficient of Variation 14.9 % Platelet Count 125 K/uL Mean Platelet Volume 8.4 fL Platelet Estimate NORMAL Sodium Level 139 mmol/L Potassium Level 4.0 mmol/L Chloride Level 102 mmol/L Carbon Dioxide Level 33 mmol/L Anion Gap 4.0 mmol/L Blood Urea Nitrogen 11 mg/dl Creatinine 1.00 mg/dl Est Creatinine Clear Calc Drug Dose 90.2 ml/min Estimated GFR () 100.6 Estimated GFR (Non- 86.8 BUN/Creatinine Ratio 10.9 Random Glucose 103 mg/dl Calcium Level 8.4 mg/dl Magnesium Level 1.8 mg/dl Assessment and Plan This is a 51 year old male with PMH of non-small cell lung CA of the left upper lung currently undergoing chemotherapy, uncontrolled, insulin-dependent DM2, presents with nausea/vomiting after chemotherapy on 08/30 Fever secondary to Facial Cellulitis in the setting of Immunosuppression 09/15 on clindamycin for the next 10 days 09/14 facial swelling, lip swelling on R side, improving ENT with no further management at this time as its draining on its own micro - MSSA; appreciate ID input, will switch to Clindamycin x 10 days on discharge 09/13 appreciate ID input micro - Staph, further speciation pending, sensitivities pending continue IV abx. for a few more days 09/12 was started on Vancomycin + Aztreonam appreciate ID input, will await culture results +pus drainage, culture sent out blood cultures no growth to date appreciate ENT input; no further intervention as the R lip is draining on its own receives chemotherapy secondary to lung carcinoma - presented with leukopenia/ neutropenia, which is improving Intractable Chemotherapy induced Nausea/Vomiting 09/15 received one dose of Emend yesterday nausea improved, but still not keeping everything down, intermittent nausea/ vomiting now continue with Zofran, Phenergan 09/14 will give another dose of Emend once nausea has improved and PO intake improves, we can discharge home 09/13 may need another dose of Emend 09/12 appreciate GI input, received Emend x1 initially Zofran, Phenergan, IVFs supportive care, can use Emend once weekly - if okay with GI, appreciate input 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 use to treat HTN continue Norvasc 10mg daily Hydralazine PRN monitor BP and adjust accordingly Lung Adenocarcinoma appreciate Hem/Onc input received 3 out of 4 cycles of chemo continue pain management no palliative care input at this time Neoplasm Related Pain appreciate pain management input Fentanyl dose increased Effexor started no intrathecal pump at this time will try one time dose of intrathecal hydrocodone dose - but cannot due to thrombocytopenia Insulin Dependent DM2 uncontrolled at home, Ha1c ~ 10.4% Lantus 12 units qhs, insulin sliding scale appreciate pharmacy glycemic control DVT ppx Lovenox FULL CODE
[2016-09-15] MEDS ORDERED: LISINOPRIL 5 MG TAB PO ONE (12:45)
[2016-09-15] MEDS ORDERED: DEXAMETHASONE 4 MG TAB PO ONE (12:45)
[2016-09-15] MEDS: METOPROLOL TARTRATE 25 MG TAB PO SCH (19:57)
[2016-09-15] MEDS ORDERED: INSULIN GLARGINE SOLOSTAR 100 UNITS/ML 3 ML PEN SC SCH (21:00)
[2016-09-15] MEDS: PROMETHAZINE HCL INJ 12.5 MG in SODIUM CHLORIDE 0.9% 50ML 50 ML IV PRN (23:35)
[2016-09-16] MEDS: ONDANSETRON INJ 8 MG in DEXTROSE 5% 50ML 50 ML IV SCH ×3 (02:38→17:46)
[2016-09-16 05:00] VITALS: BP 150/89; PULSE 96; TEMP 36.9; O2SAT 96
[2016-09-16] MEDS: HYDROmorphone HCL 2 MG TAB PO PRN ×9 (05:39→22:43)
[2016-09-16 05:47] LABS: HEMATOCRIT 24.9 % (42-52); MEAN CELL VOLUME 82.7 fL (80-100); MEAN CORPUSCULAR HEMOGLOBIN 28.2 pg (25-34); MEAN CORPUSCULAR HGB CONC 34.1 g/dl (32-36); MEAN PLATELET VOLUME 7.9 fL (7.4-10.4); PLATELET COUNT 151 K/uL (130-400); RED BLOOD COUNT 3.01 M/uL (4.7-6.1); WHITE BLOOD COUNT 10.43 K/uL (4.8-10.8)
[2016-09-16] MEDS: PROMETHAZINE HCL INJ 12.5 MG in SODIUM CHLORIDE 0.9% 50ML 50 ML IV PRN ×2 (06:10→20:49)
[2016-09-16 06:19] VITALS: BMI 27.5
[2016-09-16] MEDS: HYDROmorphone INJ 1 MG/ML SYR IV PRN ×4 (06:19→23:48)
[2016-09-16 06:26] LABS: BUN/CREATININE RATIO 10.3 (10-20); CREATININE 1.1 mg/dl (0.60-1.40); POTASSIUM 4.9 mmol/L (3.5-5.1)
[2016-09-16 07:55] VITALS: BP 173/99; PULSE 95; TEMP 37; O2SAT 97
[2016-09-16] MEDS: VENLAFAXINE HCL XR 37.5 MG CAPXR PO SCH (08:41)
[2016-09-16] MEDS: METOPROLOL TARTRATE 25 MG TAB PO SCH ×2 (08:42→20:33)
[2016-09-16] MEDS: AMLODIPINE BESYLATE 5 MG TAB PO SCH (08:42)
[2016-09-16] MEDS: CLINDAMYCIN HCL 150 MG CAP PO SCH ×3 (08:42→20:32)
[2016-09-16] MEDS: GABAPENTIN 300 MG CAP PO SCH ×3 (08:42→20:33)
[2016-09-16] MEDS: PANTOprazole SOD 40 MG TAB PO SCH ×2 (08:42→20:34)
[2016-09-16] MEDS: MAGNESIUM CHLORIDE 64MG DELAYED REL TAB PO SCH ×2 (08:42→20:34)
[2016-09-16] MEDS: ASPIRIN 81 MG ECTAB PO SCH (08:42)
[2016-09-16] MEDS: CHECK FENTANYL PATCH PLACEMENT SCH ×3 (08:43→23:51)
[2016-09-16] MEDS: INSULIN ASPART 100 UNITS/ML 3 ML PEN SC SCH ×4 (08:50→20:43)
[2016-09-16] MEDS ORDERED: LISINOPRIL 5 MG TAB PO ONE (09:00)
[2016-09-16] MEDS ORDERED: HydrALAZINE HCL 20 MG/ML VIAL IV. ONE (09:15)
[2016-09-16 09:24] VITALS: BP 154/98; PULSE 94
--- NOTE | 2016-09-16 09:25 | Progress Note ---
Subjective Date of Service: September 16, 2016. Subjective Pt evaluation today including: conversation w/ patient, physical exam, lab review, review of studies, review of inpatient medication list Saw/examined the patient in room 410 He had two vomiting episodes this morning Lip swelling improving, as it has drained more Pain is intermittent Problem List Medical Problems: (1) Altered mental status Status: Acute (2) Anemia Status: Acute (3) Dehydration Status: Acute (4) Dehydration Status: Acute (5) Dehydration Status: Acute (6) Failure of outpatient treatment Status: Acute (7) Hypomagnesemia Status: Acute (8) Hypomagnesemia Status: Acute (9) Intractable vomiting Status: Acute (10) Intractable vomiting Status: Acute (11) Orthostatic hypotension Status: Acute (12) Vomiting Status: Acute Review of Systems Constitutional: No chills, No fever Respiratory: No shortness of breath Cardiac: No chest pain Abdomen: + nausea, + vomiting, No constipation, No diarrhea, No pain Musculoskeletal: + joint pain (diffuse; back) Medications Current Inpatient Medications Medications (Trade) Dose Ordered Sig/Cal Route Start Time Stop Time Status Last Admin Dose Admin Acetaminophen (Tylenol Tab) 650 mg Q4H PRN PO 09/05/16 14:45 10/05/16 14:44 09/11/16 16:52 650 MG Al Hydrox/Mg Hydrox/Simethicone (Maalox Max Susp) 15 ml Q4H PRN PO 09/05/16 14:45 10/05/16 14:44 Magnesium Hydroxide (Milk Of Magnesia Susp) 30 ml Q6H PRN PO 09/05/16 14:45 10/05/16 14:44 Polyethylene (Miralax Powder Packet) 17 gm DAILY PRN PO 09/05/16 14:45 10/05/16 14:44 Zolpidem Tartrate 5 mg 5 mg HSZ PRN PO 09/05/16 14:45 10/05/16 14:44 09/15/16 00:50 5 MG Promethazine HCl/ Sodium Chloride (Phenergan Inj/ Nss 50ml) 50.5 ml @ 204 mls/hr Q6H PRN IV 09/05/16 14:45 10/05/16 14:44 09/16/16 06:10 204 MLS/HR Insulin Aspart (novoLOG ASPART) SLIDING SCALE If C... ACHS SC 09/05/16 16:00 10/05/16 15:59 09/16/16 08:50 17 UNITS Glucose (Glucose 40% Gel) 15-30 GRAMS 15 GRAMS... UD PRN PO 09/05/16 14:45 10/05/16 14:44 Glucose (Glucose Chew Tab) 4-8 Tablets 4 Tabl... UD PRN PO 09/05/16 14:45 10/05/16 14:44 Dextrose (Dextrose 50% 50ML Syringe) 25-50ML OF 50% DW IV FOR... UD PRN IV 09/05/16 14:45 10/05/16 14:44 Glucagon (Glucagon Inj) 1 mg UD PRN SQ 09/05/16 14:45 10/05/16 14:44 Miscellaneous Information (Consult Glycemic Management Pharmacy) 1 ea UD PRN N/A 09/05/16 14:51 10/05/16 14:50 Aspirin (Ecotrin Tab) 81 mg QAM PO 09/06/16 08:00 10/06/16 08:59 09/16/16 08:42 81 MG Gabapentin (Neurontin Cap) 600 mg TID PO 09/05/16 20:00 10/05/16 20:59 09/16/16 08:42 600 MG Magnesium Chloride (Slow-Mag Tab) 64 mg BID PO 09/05/16 20:00 10/05/16 20:59 09/16/16 08:42 64 MG Amlodipine Besylate (Norvasc Tab) 10 mg DAILY PO 09/06/16 08:00 10/06/16 08:59 09/16/16 08:42 10 MG Hydralazine HCl 5 mg 5 mg Q6H PRN IV. 09/06/16 22:00 10/06/16 21:59 Ondansetron HCl/ Dextrose (Zofran Inj/D5 50ml) 54 ml @ 216 mls/hr Q8H IV 09/07/16 10:00 10/07/16 09:59 09/16/16 08:41 216 MLS/HR Hydromorphone HCl (Dilaudid Tab) 4 mg Q2H PRN PO 09/09/16 20:15 09/23/16 20:14 09/16/16 08:41 4 MG Hydromorphone HCl (Dilaudid Inj) 0.5 mg Q4H PRN IV 09/10/16 22:45 09/24/16 22:44 09/16/16 06:19 0.5 MG Venlafaxine HCl (effeXOR EXTENDED REL CAP) 37.5 mg QAM PO 09/11/16 10:30 10/11/16 10:29 09/16/16 08:41 37.5 MG Fentanyl (Duragesic Patch) 150 mcg Q2D@1000 TD 09/11/16 10:00 09/25/16 09:59 09/15/16 10:09 150 MCG Miscellaneous (Fentanyl Patch Remove & Waste) 1 ea Q2D@0959 N/A 09/11/16 09:59 10/11/16 09:58 09/15/16 10:05 1 EA Miscellaneous Information (Check Fentanyl Patch Placement) 1 ea QS N/A 09/11/16 16:00 10/11/16 15:59 09/16/16 08:43 1 EA Pantoprazole Sodium (Protonix Tab) 40 mg BID PO 09/11/16 20:00 10/11/16 19:59 09/16/16 08:42 40 MG Clindamycin HCl (Cleocin Cap) 300 mg TID PO 09/14/16 14:00 09/24/16 13:59 09/16/16 08:42 300 MG Insulin Glargine (Lantus Solostar Pen) 12 unit HS SC 09/15/16 21:00 10/15/16 20:59 09/15/16 21:07 12 UNIT Metoprolol Tartrate (Lopressor Tab) 25 mg BID PO 09/15/16 20:00 10/15/16 19:59 09/16/16 08:42 25 MG Metoclopramide HCl (Reglan Tab) 10 mg ACHS PRN PO 09/16/16 09:00 10/16/16 08:59 Dexamethasone (Decadron Tab) 4 mg NOW ONCE PO 09/16/16 09:30 09/16/16 09:31 Dexamethasone (Decadron Tab) 4 mg BID PO 09/16/16 20:00 10/16/16 19:59 Objective Vital Signs Date Time Temp Pulse Resp B/P Pulse Ox O2 Delivery O2 Flow Rate FiO2 09/16/16 07:55 37.0 95 18 173/99 97 Room Air 09/16/16 05:00 36.9 96 18 150/89 96 Room Air 09/16/16 00:00 Room Air 09/15/16 23:21 36.7 91 20 173/108 96 09/15/16 19:43 36.6 98 20 180/109 100 Room Air 09/15/16 19:07 97 Room Air 09/15/16 15:35 36.8 95 18 166/104 97 Room Air 09/15/16 14:12 94 151/82 09/15/16 13:03 99 165/104 09/15/16 11:02 94 166/92 Physical Exam General Appearance: no apparent distress ENT: + pertinent finding (R bottom lip swelling improving) Respiratory/Chest: no respiratory distress, no accessory muscle use Extremities: normal inspection, no pedal edema Neurologic/Psychiatric: no motor/sensory deficits, alert, normal mood/affect, oriented x 3 Laboratory Results Last 24 Hours Test 09/15/16 11:21 09/15/16 16:41 09/15/16 20:27 09/16/16 05:31 Bedside Glucose 80 mg/dl 170 mg/dl 249 mg/dl White Blood Count 10.43 K/uL Red Blood Count 3.01 M/uL Hemoglobin 8.5 g/dL Hematocrit 24.9 % Mean Corpuscular Volume 82.7 fL Mean Corpuscular Hemoglobin 28.2 pg Mean Corpuscular Hemoglobin Concent 34.1 g/dl RDW Standard Deviation 44.3 fL RDW Coefficient of Variation 14.6 % Platelet Count 151 K/uL Mean Platelet Volume 7.9 fL Sodium Level 138 mmol/L Potassium Level 4.9 mmol/L Chloride Level 100 mmol/L Carbon Dioxide Level 34 mmol/L Anion Gap 4.0 mmol/L Blood Urea Nitrogen 11 mg/dl Creatinine 1.10 mg/dl Est Creatinine Clear Calc Drug Dose 82.0 ml/min Estimated GFR () 89.6 Estimated GFR (Non- 77.3 BUN/Creatinine Ratio 10.3 Random Glucose 256 mg/dl Calcium Level 8.0 mg/dl Test 09/16/16 07:58 Bedside Glucose 322 mg/dl Assessment and Plan This is a 51 year old male with PMH of non-small cell lung CA of the left upper lung currently undergoing chemotherapy, uncontrolled, insulin-dependent DM2, presents with nausea/vomiting after chemotherapy on 08/30 Fever secondary to Facial Cellulitis in the setting of Immunosuppression 09/16 continue Clindamycin TID dosing it continues to drain on its own erythema improved; swelling is improving 09/15 on clindamycin for the next 10 days 09/14 facial swelling, lip swelling on R side, improving ENT with no further management at this time as its draining on its own micro - MSSA; appreciate ID input, will switch to Clindamycin x 10 days on discharge 09/13 appreciate ID input micro - Staph, further speciation pending, sensitivities pending continue IV abx. for a few more days 09/12 was started on Vancomycin + Aztreonam appreciate ID input, will await culture results +pus drainage, culture sent out blood cultures no growth to date appreciate ENT input; no further intervention as the R lip is draining on its own receives chemotherapy secondary to lung carcinoma - presented with leukopenia/ neutropenia, which is improving Intractable Chemotherapy induced Nausea/Vomiting 09/16 will restart Reglan, continue Zofran and Phenergan PRN will add Dexamethasone if no improvement; would like GI to see the patient 09/15 received one dose of Emend yesterday nausea improved, but still not keeping everything down, intermittent nausea/ vomiting now continue with Zofran, Phenergan 09/14 will give another dose of Emend once nausea has improved and PO intake improves, we can discharge home 09/13 may need another dose of Emend 09/12 appreciate GI input, received Emend x1 initially Zofran, Phenergan, IVFs supportive care, can use Emend once weekly - if okay with GI, appreciate input 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 use to treat HTN continue Norvasc 10mg daily Hydralazine PRN monitor BP and adjust accordingly Lung Adenocarcinoma appreciate Hem/Onc input received 3 out of 4 cycles of chemo continue pain management no palliative care input at this time Neoplasm Related Pain appreciate pain management input Fentanyl dose increased Effexor started no intrathecal pump at this time will try one time dose of intrathecal hydrocodone dose - but cannot due to thrombocytopenia Insulin Dependent DM2 uncontrolled at home, Ha1c ~ 10.4% Lantus 12 units qhs, insulin sliding scale appreciate pharmacy glycemic control DVT ppx Lovenox FULL CODE
[2016-09-16] MEDS ORDERED: DEXAMETHASONE 4 MG TAB PO ONE (09:30)
[2016-09-16] MEDS ORDERED: VANCOMYCIN TROUGH ONE (09:30)
--- NOTE | 2016-09-16 09:40 | Pharmacy Progress Note ---
Glycemic Control: Progress Nt Date of Service September 16, 2016. Scope Glycemic Pharmacist consulted by Wilbert Chahal on 09/05/16 for glycemic control and to write orders per [facility] inpatient glycemic control protocol. Objective Accuchecks BSG (last 24hrs): Test 09/15/16 11:21 09/15/16 16:41 09/15/16 20:27 09/16/16 05:31 Bedside Glucose 80 mg/dl (70-99) 170 mg/dl (70-99) 249 mg/dl (70-99) Random Glucose 256 mg/dl (70-99) Test 09/16/16 07:58 Bedside Glucose 322 mg/dl (70-99) Laboratory Data (last 24hrs) Test 09/16/16 05:31 Anion Gap 4.0 mmol/L BUN/Creatinine Ratio 10.3 Blood Urea Nitrogen 11 mg/dl Creatinine 1.10 mg/dl Potassium Level 4.9 mmol/L Sodium Level 138 mmol/L White Blood Count 10.43 K/uL HbA1c: Test 09/14/16 05:56 Hemoglobin A1c 7.4 % (4.5-5.6) H Recent Pertinent Medications Outpatient Anti-diabetic Regimen: * Lantus 25 units SQ q HS * Humalog SSI with CF: 10mg/dL/unit * DXM with chemotherapy The patient is currently receiving: * Basal insulin: * Lantus 12 units SQ q HS * Bolus Insulin: * NovoLog SQ ACHS - Goal Range: Low 120 mg/dL - High 160 mg/dL - Correction Factor: 30 mg/dL/unit - Carb ratio of 1 unit per 10 grams CHO consumed Risk Factors for Insulin Resistance: * Steroids: Dexamethasone 4mg PO BID * Infection: clindamycin PO * IVF: Zofran IV q8H (mixed in dextrose) * Diet: PO diet ordered, having n/v Assessment & Plan ASSESSMENT: * ADA & AACE recommend a goal blood sugar range 140-180 mg/dl for the majority of critically ill & non-critically ill patients. However, more stringent targets may be selected in individual cases. Mr. Hamilton is young and has good glycemic control as an outpatient, will lower his goal range to continue to optimize glycemic control as an inpatient 09/16/16 * BSGs trending up today after one time dose of dexamethasone yesterday. Now scheduled dexamethasone ordered, will expect insulin requirements to increase accordingly. * Increase insulin doses at this time - toward home regimen (as Jeff takes DXM with chemo at home and this is likely a good starting point) - Lantus x1 dose now, then tonight with a goal of whole dose given q PM tomorrow evening. - NovoLog parameters tightened to a stress of 3 * A1c 10.4% 08/2016 --> 7.4% 09/2016 * having hypoglycemic events at home? PLAN FOR INPATIENT GLYCEMIC CONTROL: changes in italic * Basal insulin: * LANTUS 10 units SQ x1 now * Lantus 10 units SQ x1 tonight * Lantus 20 units SQ q PM starting 09/17 * Bolus Insulin: * NOVOLOG SQ AC/HS - Goal Range: Low 110 mg/dL - High 140 mg/dL - Correction Factor: 20 mg/dL/unit - Carb ratio of 1 unit per 6 grams CHO consumed DISCHARGE PLANNING: * Expect that patient may resume home regimen on discharge. May consider closer follow up as A1c has had a dramatic cell changer last month. * Please note that the plan above was derived based on current level of insulin resistance and hospital stress. These recommendations are appropriate for inpatient admission only. Plan of care upon discharge will need to be reassessed to avoid potential outpatient hypo/hyperglycemia. Thank you.
[2016-09-16] MEDS ORDERED: INSULIN GLARGINE SOLOSTAR 100 UNITS/ML 3 ML PEN SC SCH ×3 (12:00→21:00)
[2016-09-16 15:07] VITALS: BP 159/93; PULSE 92; TEMP 37.1; O2SAT 95
[2016-09-16] MEDS: METOCLOPRAMIDE HCL 10 MG TAB PO PRN (15:45)
[2016-09-16 19:45] VITALS: BP 171/108; PULSE 95; TEMP 37.1; O2SAT 95
[2016-09-16] MEDS: DEXAMETHASONE 4 MG TAB PO SCH (20:32)
[2016-09-16] MEDS: ZOLPIDEM TARTRATE 5 MG TAB PO PRN (23:48)
[2016-09-17 00:02] VITALS: BP 149/88; PULSE 90; TEMP 36.7; O2SAT 94
[2016-09-17] MEDS: HYDROmorphone HCL 2 MG TAB PO PRN ×10 (02:31→23:07)
[2016-09-17] MEDS: ONDANSETRON INJ 8 MG in DEXTROSE 5% 50ML 50 ML IV SCH ×3 (02:31→17:31)
[2016-09-17 04:01] VITALS: BP 209/118; PULSE 94; TEMP 36.7; O2SAT 98
[2016-09-17] MEDS: HYDROmorphone INJ 1 MG/ML SYR IV PRN ×4 (04:05→19:40)
[2016-09-17 06:06] VITALS: BMI 28.2
[2016-09-17 07:26] VITALS: BP 158/94; PULSE 90; TEMP 36.6; O2SAT 95
[2016-09-17] MEDS: VENLAFAXINE HCL XR 37.5 MG CAPXR PO SCH (07:39)
[2016-09-17] MEDS: PANTOprazole SOD 40 MG TAB PO SCH ×2 (07:39→19:42)
[2016-09-17] MEDS: METOCLOPRAMIDE HCL 10 MG TAB PO PRN ×3 (07:39→19:41)
[2016-09-17] MEDS: ASPIRIN 81 MG ECTAB PO SCH (07:39)
[2016-09-17] MEDS: CLINDAMYCIN HCL 150 MG CAP PO SCH ×3 (07:39→19:42)
[2016-09-17] MEDS: AMLODIPINE BESYLATE 5 MG TAB PO SCH (07:39)
[2016-09-17] MEDS: DEXAMETHASONE 4 MG TAB PO SCH (07:39)
[2016-09-17] MEDS: GABAPENTIN 300 MG CAP PO SCH ×3 (07:40→19:42)
[2016-09-17] MEDS: MAGNESIUM CHLORIDE 64MG DELAYED REL TAB PO SCH ×2 (07:40→19:42)
[2016-09-17] MEDS: CHECK FENTANYL PATCH PLACEMENT SCH ×2 (07:40→15:59)
[2016-09-17] MEDS: METOPROLOL TARTRATE 25 MG TAB PO SCH ×2 (07:40→19:41)
[2016-09-17 07:58] LABS: BUN/CREATININE RATIO 13.9 (10-20); CALCIUM 8.2 mg/dl (8.5-10.1); CREATININE 1.2 mg/dl (0.60-1.40); POTASSIUM 5.2 mmol/L (3.5-5.1)
[2016-09-17 08:13] LABS: BETA-HYDROXYBUTYRATE 0.8 mg/dL (0.2-2.81)
[2016-09-17 08:24] LABS: HEMATOCRIT 26.8 % (42-52); MEAN CELL VOLUME 83.8 fL (80-100); MEAN CORPUSCULAR HEMOGLOBIN 28.1 pg (25-34); MEAN CORPUSCULAR HGB CONC 33.6 g/dl (32-36); MEAN PLATELET VOLUME 8.1 fL (7.4-10.4); PLATELET COUNT 232 K/uL (130-400); WHITE BLOOD COUNT 12.96 K/uL (4.8-10.8)
[2016-09-17] MEDS ORDERED: INSULIN GLARGINE SOLOSTAR 100 UNITS/ML 3 ML PEN SC ONE ×2 (10:00→10:30)
[2016-09-17] MEDS ORDERED: INSULIN REGULAR IV ONE (10:15)
[2016-09-17] MEDS: FENTANYL 75 MCG/HR TDSY TD SCH (10:15)
[2016-09-17] MEDS: FENTANYL PATCH REMOVE & WASTE SCH (10:18)
[2016-09-17] MEDS: INSULIN ASPART 100 UNITS/ML 3 ML PEN SC SCH ×4 (10:18→20:43)
--- NOTE | 2016-09-17 10:54 | Pharmacy Progress Note ---
Glycemic Control: Progress Nt Date of Service September 17, 2016. Scope Glycemic Pharmacist consulted by Marlena Chahal on 09/05/16 for glycemic control and to write orders per [facility] inpatient glycemic control protocol. Objective Accuchecks BSG (last 24hrs): Test 09/16/16 11:37 09/16/16 16:40 09/16/16 20:03 09/17/16 06:28 Bedside Glucose 150 mg/dl (70-99) 146 mg/dl (70-99) 181 mg/dl (70-99) Random Glucose 372 mg/dl (70-99) Test 09/17/16 07:36 Bedside Glucose 346 mg/dl (70-99) Laboratory Data (last 24hrs) Test 09/17/16 06:28 Anion Gap 4.0 mmol/L BUN/Creatinine Ratio 13.9 Blood Urea Nitrogen 17 mg/dl Creatinine 1.20 mg/dl Potassium Level 5.2 mmol/L Sodium Level 135 mmol/L White Blood Count 12.96 K/uL HbA1c: Test 09/14/16 05:56 Hemoglobin A1c 7.4 % (4.5-5.6) H Recent Pertinent Medications Outpatient Anti-diabetic Regimen: * Lantus 25 units SQ q HS * Humalog SSI with CF: 10mg/dL/unit * DXM with chemo Risk Factors for Insulin Resistance: * Steroids: Dexamethasone 4mg PO BID - placed on hold after 5/15 am dose * Infection: clindamycin PO for facial cellulitis * IVF: Zofran IV q8H (mixed in dextrose) * Diet: PO diet ordered, having n/v The patient is currently receiving: * Basal insulin: * Lantus 10 units SQ BID * Bolus Insulin: * NovoLog SQ ACHS - Goal Range: Low 110 mg/dL - High 140 mg/dL - Correction Factor: 20 mg/dL/unit - Carb ratio of 1 unit per 6 grams CHO consumed Assessment & Plan ASSESSMENT: * ADA & AACE recommend a goal blood sugar range 140-180 mg/dl for the majority of critically ill & non-critically ill patients. However, more stringent targets may be selected in individual cases. Mr. Hamilton is young and has good glycemic control as an outpatient, will lower his goal range to continue to optimize glycemic control as an inpatient 09/17/16 * Severe hyperglycemia of 372 mg/dL this morning. Patient informed nursing that he drank a can of Coke and ate two ice creams around 4am. I suspect elevated fasting BSG is partly due to uncovered carbs and partly due to ongoing steroids. Dexamethasone PO was added on 09/15 due to continued chemotherapy induced N/V. * Patient will be administered a one time 0.1 units/kg IV insulin bolus for BSG ~ 350 mg/dL. * Will further titrate basal insulin today-> dose increased from 12 units to 20 units per day yesterday due to addition of steroids. * Extra 10 units will be given this morning to cover am dose of dexamethasone. * Dexamethasone was placed on hold this afternoon, therefore, will resume previous Lantus dose of 12 units * Continue current bolus insulin with CF and CR based on weight/stress of 3. PLAN FOR INPATIENT GLYCEMIC CONTROL: * Regular Insulin 9 unit IV bolus x 1 * Basal insulin: * Lantus 10 units SQ qam x 1 * Lantus 12 units SQ HS * Bolus Insulin: * NOVOLOG SQ AC/HS - Goal Range: Low 110 mg/dL - High 140 mg/dL - Correction Factor: 20 mg/dL/unit - Carb ratio of 1 unit per 6 grams CHO consumed - Add overnight checks with coverage at 0000 and 0400 DISCHARGE PLANNING: * Expect that patient may resume home regimen on discharge. May consider closer follow up as A1c has had a dramatic exchange floor manager last month. * Please note that the plan above was derived based on current level of insulin resistance and hospital stress. These recommendations are appropriate for inpatient admission only. Plan of care upon discharge will need to be reassessed to avoid potential outpatient hypo/hyperglycemia. Thank you.
[2016-09-17 11:09] VITALS: BP 169/97; PULSE 92; TEMP 36.8; O2SAT 98
[2016-09-17] MEDS ORDERED: FOSAPREPITANT DIMEGLUMINE INJ 115 MG in SODIUM CHLORIDE 0.9% 100ML 111.2 ML IV ONE (12:00)
[2016-09-17] MEDS ORDERED: HydrALAZINE HCL 20 MG/ML VIAL IV. STA (13:03)
--- NOTE | 2016-09-17 13:10 | Progress Note ---
Subjective Date of Service: September 17, 2016. Subjective Pt evaluation today including: conversation w/ patient, physical exam, lab review, review of studies, review of inpatient medication list Saw/examined the patient in room 410 +nausea/vomiting +pain - improving with medications R bottom lip swelling improving Problem List Medical Problems: (1) Altered mental status Status: Acute (2) Anemia Status: Acute (3) Dehydration Status: Acute (4) Dehydration Status: Acute (5) Dehydration Status: Acute (6) Failure of outpatient treatment Status: Acute (7) Hypomagnesemia Status: Acute (8) Hypomagnesemia Status: Acute (9) Intractable vomiting Status: Acute (10) Intractable vomiting Status: Acute (11) Orthostatic hypotension Status: Acute (12) Vomiting Status: Acute Review of Systems Constitutional: + weakness, No chills, No fever Respiratory: No cough, No shortness of breath, No sputum Cardiac: No chest pain Abdomen: + nausea, + vomiting, No diarrhea, No pain Musculoskeletal: + joint pain Medications Current Inpatient Medications Medications (Trade) Dose Ordered Sig/Cal Route Start Time Stop Time Status Last Admin Dose Admin Acetaminophen (Tylenol Tab) 650 mg Q4H PRN PO 09/05/16 14:45 10/05/16 14:44 09/11/16 16:52 650 MG Al Hydrox/Mg Hydrox/Simethicone (Maalox Max Susp) 15 ml Q4H PRN PO 09/05/16 14:45 10/05/16 14:44 Magnesium Hydroxide (Milk Of Magnesia Susp) 30 ml Q6H PRN PO 09/05/16 14:45 10/05/16 14:44 Polyethylene (Miralax Powder Packet) 17 gm DAILY PRN PO 09/05/16 14:45 10/05/16 14:44 Zolpidem Tartrate 5 mg 5 mg HSZ PRN PO 09/05/16 14:45 10/05/16 14:44 09/16/16 23:48 5 MG Promethazine HCl/ Sodium Chloride (Phenergan Inj/ Nss 50ml) 50.5 ml @ 204 mls/hr Q6H PRN IV 09/05/16 14:45 10/05/16 14:44 09/16/16 20:49 204 MLS/HR Insulin Aspart (novoLOG ASPART) SLIDING SCALE If C... ACHS SC 09/05/16 16:00 10/05/16 15:59 09/17/16 12:38 11 UNITS Glucose (Glucose 40% Gel) 15-30 GRAMS 15 GRAMS... UD PRN PO 09/05/16 14:45 10/05/16 14:44 Glucose (Glucose Chew Tab) 4-8 Tablets 4 Tabl... UD PRN PO 09/05/16 14:45 10/05/16 14:44 Dextrose (Dextrose 50% 50ML Syringe) 25-50ML OF 50% DW IV FOR... UD PRN IV 09/05/16 14:45 10/05/16 14:44 Glucagon (Glucagon Inj) 1 mg UD PRN SQ 09/05/16 14:45 10/05/16 14:44 Miscellaneous Information (Consult Glycemic Management Pharmacy) 1 ea UD PRN N/A 09/05/16 14:51 10/05/16 14:50 Aspirin (Ecotrin Tab) 81 mg QAM PO 09/06/16 08:00 10/06/16 08:59 09/17/16 07:39 81 MG Gabapentin (Neurontin Cap) 600 mg TID PO 09/05/16 20:00 10/05/16 20:59 09/17/16 11:59 600 MG Magnesium Chloride (Slow-Mag Tab) 64 mg BID PO 09/05/16 20:00 10/05/16 20:59 09/17/16 07:40 64 MG Amlodipine Besylate (Norvasc Tab) 10 mg DAILY PO 09/06/16 08:00 10/06/16 08:59 09/17/16 07:39 10 MG Hydralazine HCl 5 mg 5 mg Q6H PRN IV. 09/06/16 22:00 10/06/16 21:59 Ondansetron HCl/ Dextrose (Zofran Inj/D5 50ml) 54 ml @ 216 mls/hr Q8H IV 09/07/16 10:00 10/07/16 09:59 09/17/16 10:15 216 MLS/HR Hydromorphone HCl (Dilaudid Tab) 4 mg Q2H PRN PO 09/09/16 20:15 09/23/16 20:14 09/17/16 11:59 4 MG Hydromorphone HCl (Dilaudid Inj) 0.5 mg Q4H PRN IV 09/10/16 22:45 09/24/16 22:44 09/17/16 11:04 0.5 MG Venlafaxine HCl (effeXOR EXTENDED REL CAP) 37.5 mg QAM PO 09/11/16 10:30 10/11/16 10:29 09/17/16 07:39 37.5 MG Fentanyl (Duragesic Patch) 150 mcg Q2D@1000 TD 09/11/16 10:00 09/25/16 09:59 09/17/16 10:15 150 MCG Miscellaneous (Fentanyl Patch Remove & Waste) 1 ea Q2D@0959 N/A 09/11/16 09:59 10/11/16 09:58 09/17/16 10:18 1 EA Miscellaneous Information (Check Fentanyl Patch Placement) 1 ea QS N/A 09/11/16 16:00 10/11/16 15:59 09/17/16 07:40 1 EA Pantoprazole Sodium (Protonix Tab) 40 mg BID PO 09/11/16 20:00 10/11/16 19:59 09/17/16 07:39 40 MG Clindamycin HCl (Cleocin Cap) 300 mg TID PO 09/14/16 14:00 09/24/16 13:59 09/17/16 11:59 300 MG Metoprolol Tartrate (Lopressor Tab) 25 mg BID PO 09/15/16 20:00 10/15/16 19:59 09/17/16 07:40 25 MG Metoclopramide HCl (Reglan Tab) 10 mg ACHS PRN PO 09/16/16 09:00 10/16/16 08:59 09/17/16 12:00 10 MG Dexamethasone (Decadron Tab) 4 mg BID PO 09/16/16 20:00 10/16/16 19:59 09/17/16 07:39 4 MG Insulin Glargine (Lantus Solostar Pen) 20 unit BID SC 09/17/16 20:00 10/17/16 19:59 Insulin Aspart (novoLOG ASPART) SLIDING SCALE If C... 0000,0400 SC 09/18/16 00:00 10/18/16 00:00 Objective Vital Signs Date Time Temp Pulse Resp B/P Pulse Ox O2 Delivery O2 Flow Rate FiO2 09/17/16 11:09 36.8 92 16 169/97 98 Room Air 09/17/16 09:17 Room Air 09/17/16 07:26 36.6 90 18 158/94 95 Room Air 09/17/16 04:01 36.7 94 20 209/118 98 Room Air 09/17/16 00:02 36.7 90 20 149/88 94 Room Air 09/17/16 00:00 Room Air 09/16/16 20:00 Room Air 09/16/16 19:45 37.1 95 20 171/108 95 Room Air 09/16/16 16:30 Room Air 09/16/16 15:07 37.1 92 18 159/93 95 Room Air 09/16/16 13:58 Room Air Physical Exam General Appearance: no apparent distress ENT: + pertinent finding (R bottom lip swelling which is improving) Respiratory/Chest: chest non-tender, lungs clear, normal breath sounds, no respiratory distress, no accessory muscle use Cardiovascular: regular rate, rhythm Abdomen: normal bowel sounds, non tender, soft Extremities: non-tender, normal inspection, no pedal edema Neurologic/Psychiatric: no motor/sensory deficits, alert, normal mood/affect Laboratory Results Last 24 Hours Test 09/16/16 16:40 09/16/16 20:03 09/17/16 06:28 09/17/16 07:36 Bedside Glucose 146 mg/dl 181 mg/dl 346 mg/dl White Blood Count 12.96 K/uL Red Blood Count 3.20 M/uL Hemoglobin 9.0 g/dL Hematocrit 26.8 % Mean Corpuscular Volume 83.8 fL Mean Corpuscular Hemoglobin 28.1 pg Mean Corpuscular Hemoglobin Concent 33.6 g/dl RDW Standard Deviation 45.1 fL RDW Coefficient of Variation 14.7 % Platelet Count 232 K/uL Mean Platelet Volume 8.1 fL Sodium Level 135 mmol/L Potassium Level 5.2 mmol/L Chloride Level 99 mmol/L Carbon Dioxide Level 32 mmol/L Anion Gap 4.0 mmol/L Blood Urea Nitrogen 17 mg/dl Creatinine 1.20 mg/dl Est Creatinine Clear Calc Drug Dose 81.8 ml/min Estimated GFR () 80.7 Estimated GFR (Non- 69.6 BUN/Creatinine Ratio 13.9 Random Glucose 372 mg/dl Calcium Level 8.2 mg/dl Beta-Hydroxybutyric Acid 0.80 mg/dL Test 09/17/16 11:20 Bedside Glucose 172 mg/dl Assessment and Plan This is a 51 year old male with PMH of non-small cell lung CA of the left upper lung currently undergoing chemotherapy, uncontrolled, insulin-dependent DM2, presents with nausea/vomiting after chemotherapy on 08/30 Fever secondary to Facial Cellulitis in the setting of Immunosuppression 09/17 continue Clindamycin platelets improvement 09/16 continue Clindamycin TID dosing it continues to drain on its own erythema improved; swelling is improving 09/15 on clindamycin for the next 10 days 09/14 facial swelling, lip swelling on R side, improving ENT with no further management at this time as its draining on its own micro - MSSA; appreciate ID input, will switch to Clindamycin x 10 days on discharge 09/13 appreciate ID input micro - Staph, further speciation pending, sensitivities pending continue IV abx. for a few more days 09/12 was started on Vancomycin + Aztreonam appreciate ID input, will await culture results +pus drainage, culture sent out blood cultures no growth to date appreciate ENT input; no further intervention as the R lip is draining on its own receives chemotherapy secondary to lung carcinoma - presented with leukopenia/ neutropenia, which is improving Intractable Chemotherapy induced Nausea/Vomiting 09/17 Reglan, Phenergan, Zofran will add Emend x 1 today outpatient GI f/u 09/16 will restart Reglan, continue Zofran and Phenergan PRN will add Dexamethasone if no improvement; would like GI to see the patient 09/15 received one dose of Emend yesterday nausea improved, but still not keeping everything down, intermittent nausea/ vomiting now continue with Zofran, Phenergan 09/14 will give another dose of Emend once nausea has improved and PO intake improves, we can discharge home 09/13 may need another dose of Emend 09/12 appreciate GI input, received Emend x1 initially Zofran, Phenergan, IVFs supportive care, can use Emend once weekly - if okay with GI, appreciate input 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 use to treat HTN continue Norvasc 10mg daily Hydralazine PRN monitor BP and adjust accordingly Lung Adenocarcinoma appreciate Hem/Onc input received 3 out of 4 cycles of chemo continue pain management no palliative care input at this time Neoplasm Related Pain appreciate pain management input Fentanyl dose increased Effexor started no intrathecal pump at this time will try one time dose of intrathecal hydrocodone dose - but cannot due to thrombocytopenia - outpatient f/u after infection is cleared Insulin Dependent DM2 uncontrolled at home, Ha1c ~ 10.4% Lantus 12 units qhs, insulin sliding scale appreciate pharmacy glycemic control DVT ppx Lovenox FULL CODE
[2016-09-17 16:03] VITALS: BP 133/74; PULSE 77; TEMP 36.7; O2SAT 97
[2016-09-17 19:57] VITALS: BP_SYST 178; BP_SYST 186; BP_DIAS 104; PULSE 99; TEMP 36.5; O2SAT 98
[2016-09-17] MEDS ORDERED: INSULIN GLARGINE SOLOSTAR 100 UNITS/ML 3 ML PEN SC SCH ×3 (20:00→21:00)
[2016-09-18] VITALS (8 sets, daily range): BP systolic 134–169; BP diastolic 82–94; PULSE 79–93; TEMP 36.6–36.9; O2SAT 90–97; BMI 28.2
[2016-09-18] MEDS: CHECK FENTANYL PATCH PLACEMENT SCH ×4 (00:02→23:22)
[2016-09-18] MEDS: HYDROmorphone INJ 1 MG/ML SYR IV PRN ×6 (00:03→22:38)
[2016-09-18] MEDS: ZOLPIDEM TARTRATE 5 MG TAB PO PRN ×2 (00:04→23:21)
[2016-09-18] MEDS: INSULIN ASPART 100 UNITS/ML 3 ML PEN SC SCH ×6 (00:11→21:00)
[2016-09-18] MEDS: ONDANSETRON INJ 8 MG in DEXTROSE 5% 50ML 50 ML IV SCH ×3 (02:20→18:22)
[2016-09-18] MEDS ORDERED: INSULIN ASPART 100 UNITS/ML 3 ML PEN SC STA (04:12)
[2016-09-18] MEDS: HYDROmorphone HCL 2 MG TAB PO PRN ×8 (05:16→23:22)
[2016-09-18 07:15] LABS: HEMATOCRIT 24.4 % (42-52); MEAN CELL VOLUME 84.7 fL (80-100); MEAN CORPUSCULAR HEMOGLOBIN 28.1 pg (25-34); MEAN CORPUSCULAR HGB CONC 33.2 g/dl (32-36); MEAN PLATELET VOLUME 8.2 fL (7.4-10.4); PLATELET COUNT 273 K/uL (130-400); RED BLOOD COUNT 2.88 M/uL (4.7-6.1); WHITE BLOOD COUNT 12.39 K/uL (4.8-10.8)
[2016-09-18 07:48] LABS: BUN/CREATININE RATIO 14.6 (10-20); CALCIUM 8.2 mg/dl (8.5-10.1); CREATININE 1.4 mg/dl (0.60-1.40); POTASSIUM 4.6 mmol/L (3.5-5.1)
[2016-09-18] MEDS: CLINDAMYCIN HCL 150 MG CAP PO SCH ×3 (07:54→20:08)
[2016-09-18] MEDS: VENLAFAXINE HCL XR 37.5 MG CAPXR PO SCH (07:55)
[2016-09-18] MEDS: ASPIRIN 81 MG ECTAB PO SCH (07:55)
[2016-09-18] MEDS: METOPROLOL TARTRATE 25 MG TAB PO SCH ×2 (07:56→20:08)
[2016-09-18] MEDS: PANTOprazole SOD 40 MG TAB PO SCH ×2 (07:57→20:07)
[2016-09-18] MEDS: GABAPENTIN 300 MG CAP PO SCH ×3 (07:57→20:08)
[2016-09-18] MEDS: AMLODIPINE BESYLATE 5 MG TAB PO SCH (07:57)
[2016-09-18] MEDS: MAGNESIUM CHLORIDE 64MG DELAYED REL TAB PO SCH ×2 (07:57→20:07)
[2016-09-18] MEDS: INSULIN GLARGINE SOLOSTAR 100 UNITS/ML 3 ML PEN SC SCH (08:57)
--- NOTE | 2016-09-18 10:54 | Pharmacy Progress Note ---
Glycemic Control: Progress Nt Date of Service September 18, 2016. Scope Glycemic Pharmacist consulted by Marlena Chahal PA-C on 09/05/16 for glycemic control and to write orders per [facility] inpatient glycemic control protocol. Objective Accuchecks BSG (last 24hrs): Test 09/17/16 11:20 09/17/16 16:36 09/17/16 20:11 09/17/16 23:57 Bedside Glucose 172 mg/dl (70-99) 118 mg/dl (70-99) 273 mg/dl (70-99) 278 mg/dl (70-99) Test 09/18/16 03:47 09/18/16 06:40 09/18/16 07:45 Bedside Glucose 268 mg/dl (70-99) 280 mg/dl (70-99) Random Glucose 281 mg/dl (70-99) Laboratory Data (last 24hrs) HbA1c: Test 09/14/16 05:56 Hemoglobin A1c 7.4 % (4.5-5.6) H Recent Pertinent Medications Outpatient Anti-diabetic Regimen: * Lantus 25 units SQ HS * Humalog SSI per CF = 10 The patient is currently receiving: * Basal insulin: Lantus 10-12 units every 12 hours * Correctional Insulin: Novolog Correction per scale ACHS Goal Range: Low 110 mg/dL - High 140 mg/dL Correction Factor: 20 mg/dL/unit * Prandial insulin: Per carb ratio of 1 unit per 6 grams CHO consumed Risk Factors for insulin resistance: * -D-X-M- -4-m-g- -P-O- -B-I-D- discontinued/hold on 09/17/16 * Infection * erratic PO intake Risk Factors for insulin sensitivity/hypo: * N/V Assessment & Plan ASSESSMENT: * 51 yo T2DM known to the glycemic service from most recent admission earlier this month * Total daily dose ~ 50 units per previous admission when tolerating a full PO diet * BSGs have been labile d/t erratic PO intake. Pt with reported ongoing N/V but is still tolerating full diet and snacks. * Pt with severe hyperglycemia 5/15 AM secondary to ice cream and soda at 0400 * Pt currently receiving less than outpatient dosing of insulin secondary to decreased PO intake, however, pt has been tolerating full diet x 72hrs+, will resume outpatient dosing and continue to titrate based on BSG trends * AM fasting BSG elevated at 280mg/dl --> basal insulin needs increased * Post-prandial BSGs seem in range with current scale, no changes needed at this time. * ADA & AACE recommend a goal blood sugar range 140-180 mg/dl for the majority of critically ill & non-critically ill patients. However, more stringent targets may be selected in individual cases. Will utilize more stringent goal of 110-140mg/dl based on patient age & comorbidities. Additionally, tighter glycemic control is warranted to facilitate wound/infection healing. PLAN FOR INPATIENT GLYCEMIC CONTROL: * Basal insulin * Increase Lantus to 25 units SQ daily (outpatient dosing is 25 units HS, will work back to HS dosing closer to d.c) * Bolus insulin * NO CHANGE, NovoLog per scale ACHS or Q6hrs while NPO * Goal Range: Low 110 mg/dL - High 140 mg/dL * Correction Factor: 20 mg/dL/unit * Nutritional / Prandial insulin per carb ratio of 1 unit per 6 grams CHO consumed Looking ahead to discharge: * Expect that patient may resume home regimen on discharge. May consider closer follow up as A1c has had a dramatic exchange administrator last month, but this is most likely secondary to long inpatient stay and well controlled BSGs in house. * Please note that the plan above was derived based on current level of insulin resistance and hospital stress. These recommendations are appropriate for inpatient admission only. Plan of care upon discharge will need to be reassessed to avoid potential outpatient hypo/hyperglycemia. Thank you.
--- NOTE | 2016-09-18 13:43 | Progress Note ---
Subjective Date of Service: September 18, 2016. Subjective Pt evaluation today including: conversation w/ patient, physical exam, lab review, review of studies, review of inpatient medication list Saw/examined the patient in room 410 He continues to have nausea/vomiting episodes today Pain is just controlled with medications Problem List Medical Problems: (1) Altered mental status Status: Acute (2) Anemia Status: Acute (3) Dehydration Status: Acute (4) Dehydration Status: Acute (5) Dehydration Status: Acute (6) Failure of outpatient treatment Status: Acute (7) Hypomagnesemia Status: Acute (8) Hypomagnesemia Status: Acute (9) Intractable vomiting Status: Acute (10) Intractable vomiting Status: Acute (11) Orthostatic hypotension Status: Acute (12) Vomiting Status: Acute Review of Systems Constitutional: No chills, No fever Respiratory: No shortness of breath Cardiac: No chest pain Abdomen: + nausea, + vomiting, No pain Musculoskeletal: + joint pain (diffuse; back) Medications Current Inpatient Medications Medications (Trade) Dose Ordered Sig/Cal Route Start Time Stop Time Status Last Admin Dose Admin Acetaminophen (Tylenol Tab) 650 mg Q4H PRN PO 09/05/16 14:45 10/05/16 14:44 09/11/16 16:52 650 MG Al Hydrox/Mg Hydrox/Simethicone (Maalox Max Susp) 15 ml Q4H PRN PO 09/05/16 14:45 10/05/16 14:44 Magnesium Hydroxide (Milk Of Magnesia Susp) 30 ml Q6H PRN PO 09/05/16 14:45 10/05/16 14:44 Polyethylene (Miralax Powder Packet) 17 gm DAILY PRN PO 09/05/16 14:45 10/05/16 14:44 Zolpidem Tartrate 5 mg 5 mg HSZ PRN PO 09/05/16 14:45 10/05/16 14:44 09/18/16 00:04 5 MG Promethazine HCl/ Sodium Chloride (Phenergan Inj/ Nss 50ml) 50.5 ml @ 204 mls/hr Q6H PRN IV 09/05/16 14:45 10/05/16 14:44 09/16/16 20:49 204 MLS/HR Insulin Aspart (novoLOG ASPART) SLIDING SCALE If C... ACHS SC 09/05/16 16:00 6/2/17 15:59 09/18/16 13:06 10 UNITS Glucose (Glucose 40% Gel) 15-30 GRAMS 15 GRAMS... UD PRN PO 09/05/16 14:45 10/05/16 14:44 Glucose (Glucose Chew Tab) 4-8 Tablets 4 Tabl... UD PRN PO 09/05/16 14:45 10/05/16 14:44 Dextrose (Dextrose 50% 50ML Syringe) 25-50ML OF 50% DW IV FOR... UD PRN IV 09/05/16 14:45 10/05/16 14:44 Glucagon (Glucagon Inj) 1 mg UD PRN SQ 09/05/16 14:45 10/05/16 14:44 Miscellaneous Information (Consult Glycemic Management Pharmacy) 1 ea UD PRN N/A 09/05/16 14:51 10/05/16 14:50 Aspirin (Ecotrin Tab) 81 mg QAM PO 09/06/16 08:00 10/06/16 08:59 09/18/16 07:55 81 MG Gabapentin (Neurontin Cap) 600 mg TID PO 09/05/16 20:00 10/05/16 20:59 09/18/16 07:57 600 MG Magnesium Chloride (Slow-Mag Tab) 64 mg BID PO 09/05/16 20:00 10/05/16 20:59 09/18/16 07:57 64 MG Amlodipine Besylate (Norvasc Tab) 10 mg DAILY PO 09/06/16 08:00 10/06/16 08:59 09/18/16 07:57 10 MG Hydralazine HCl 5 mg 5 mg Q6H PRN IV. 09/06/16 22:00 10/06/16 21:59 Ondansetron HCl/ Dextrose (Zofran Inj/D5 50ml) 54 ml @ 216 mls/hr Q8H IV 09/07/16 10:00 10/07/16 09:59 09/18/16 10:06 216 MLS/HR Hydromorphone HCl (Dilaudid Tab) 4 mg Q2H PRN PO 09/09/16 20:15 09/23/16 20:14 09/18/16 12:15 4 MG Hydromorphone HCl (Dilaudid Inj) 0.5 mg Q4H PRN IV 09/10/16 22:45 09/24/16 22:44 09/18/16 13:01 0.5 MG Venlafaxine HCl (effeXOR EXTENDED REL CAP) 37.5 mg QAM PO 09/11/16 10:30 10/11/16 10:29 09/18/16 07:55 37.5 MG Fentanyl (Duragesic Patch) 150 mcg Q2D@1000 TD 09/11/16 10:00 09/25/16 09:59 09/17/16 10:15 150 MCG Miscellaneous (Fentanyl Patch Remove & Waste) 1 ea Q2D@0959 N/A 09/11/16 09:59 10/11/16 09:58 09/17/16 10:18 1 EA Miscellaneous Information (Check Fentanyl Patch Placement) 1 ea QS N/A 09/11/16 16:00 10/11/16 15:59 09/18/16 07:54 1 EA Pantoprazole Sodium (Protonix Tab) 40 mg BID PO 09/11/16 20:00 10/11/16 19:59 09/18/16 07:57 40 MG Clindamycin HCl (Cleocin Cap) 300 mg TID PO 09/14/16 14:00 09/24/16 13:59 09/18/16 07:54 300 MG Metoprolol Tartrate (Lopressor Tab) 25 mg BID PO 09/15/16 20:00 10/15/16 19:59 09/18/16 07:56 25 MG Metoclopramide HCl (Reglan Tab) 10 mg ACHS PRN PO 09/16/16 09:00 10/16/16 08:59 09/17/16 19:41 10 MG Dexamethasone (Decadron Tab) 4 mg BID PO 09/16/16 20:00 10/16/16 19:59 Future Hold 09/17/16 07:39 4 MG Insulin Aspart (novoLOG ASPART) SLIDING SCALE If C... 0000,0400 SC 09/18/16 00:00 10/18/16 00:00 09/18/16 00:11 7 UNITS Insulin Glargine (Lantus Solostar Pen) 25 unit DAILY SC 09/18/16 08:00 10/18/16 07:59 09/18/16 08:57 25 UNIT Objective Vital Signs Date Time Temp Pulse Resp B/P Pulse Ox O2 Delivery O2 Flow Rate FiO2 09/18/16 11:56 36.9 85 18 143/92 97 Room Air 134/90 09/18/16 08:00 Room Air 09/18/16 07:35 36.8 88 16 153/83 96 Room Air 09/18/16 04:11 36.9 85 18 134/82 92 09/18/16 00:00 Room Air 09/18/16 00:00 89 18 155/86 90 Room Air 09/17/16 20:00 Room Air 09/17/16 19:57 36.5 99 18 186/104 98 Room Air 178/104 09/17/16 16:57 Room Air 09/17/16 16:03 36.7 77 18 133/74 97 Room Air Physical Exam General Appearance: + mild distress (secondary to pain, nausea/vomiting) ENT: + pertinent finding (R lip swelling, improving) Respiratory/Chest: lungs clear, normal breath sounds, no respiratory distress, no accessory muscle use Cardiovascular: regular rate, rhythm, no edema, no murmur Abdomen: non tender, soft, + abnormal bowel sounds (hyperactive bowel sounds) Extremities: normal inspection, no pedal edema Laboratory Results Last 24 Hours Test 09/17/16 16:36 09/17/16 20:11 09/17/16 23:57 09/18/16 03:47 Bedside Glucose 118 mg/dl 273 mg/dl 278 mg/dl 268 mg/dl Test 09/18/16 06:40 09/18/16 07:45 09/18/16 11:35 09/18/16 12:01 White Blood Count 12.39 K/uL Red Blood Count 2.88 M/uL Hemoglobin 8.1 g/dL Hematocrit 24.4 % Mean Corpuscular Volume 84.7 fL Mean Corpuscular Hemoglobin 28.1 pg Mean Corpuscular Hemoglobin Concent 33.2 g/dl RDW Standard Deviation 45.5 fL RDW Coefficient of Variation 14.7 % Platelet Count 273 K/uL Mean Platelet Volume 8.2 fL Sodium Level 137 mmol/L Potassium Level 4.6 mmol/L Chloride Level 101 mmol/L Carbon Dioxide Level 31 mmol/L Anion Gap 5.0 mmol/L Blood Urea Nitrogen 20 mg/dl Creatinine 1.40 mg/dl Est Creatinine Clear Calc Drug Dose 70.2 ml/min Estimated GFR () 66.9 Estimated GFR (Non- 57.8 BUN/Creatinine Ratio 14.6 Random Glucose 281 mg/dl Calcium Level 8.2 mg/dl Bedside Glucose 280 mg/dl 67 mg/dl 55 mg/dl Test 09/18/16 12:19 09/18/16 12:45 Bedside Glucose 62 mg/dl 82 mg/dl Assessment and Plan This is a 51 year old male with PMH of non-small cell lung CA of the left upper lung currently undergoing chemotherapy, uncontrolled, insulin-dependent DM2, presents with nausea/vomiting after chemotherapy on 08/30 Fever secondary to Facial Cellulitis in the setting of Immunosuppression 09/18 * Clindamycin TID dosing (#09/12) as per ID * leukocytosis more likely related to Decadron use * will need outpatient f/u with GI in [facility] for an interrogation of his gastric pacemaker; as a stopgap measure, may need PO Emend on discharge; did receive IV Emend yesterday (09/17) with only some improvement * will need new regimen for outpatient insulin if he is still nauseous/vomiting ; decreased Lantus dose; appreciate pharmacy glycemic control * Outpatient pain management follow-up for possible intrathecal hydromorphone trial (only after the completion of his antibiotic regimen and clearance of infection * Hgb stable; outpatient CBC in one week to assure platelets and Hgb are stable 09/17 continue Clindamycin platelets improvement 09/16 continue Clindamycin TID dosing it continues to drain on its own erythema improved; swelling is improving 09/15 on clindamycin for the next 10 days 09/14 facial swelling, lip swelling on R side, improving ENT with no further management at this time as its draining on its own micro - MSSA; appreciate ID input, will switch to Clindamycin x 10 days on discharge 09/13 appreciate ID input micro - Staph, further speciation pending, sensitivities pending continue IV abx. for a few more days 09/12 was started on Vancomycin + Aztreonam appreciate ID input, will await culture results +pus drainage, culture sent out blood cultures no growth to date appreciate ENT input; no further intervention as the R lip is draining on its own receives chemotherapy secondary to lung carcinoma - presented with leukopenia/ neutropenia, which is improving Intractable Chemotherapy induced Nausea/Vomiting 09/17 Reglan, Phenergan, Zofran will add Emend x 1 today outpatient GI f/u 09/16 will restart Reglan, continue Zofran and Phenergan PRN will add Dexamethasone if no improvement; would like GI to see the patient 09/15 received one dose of Emend yesterday nausea improved, but still not keeping everything down, intermittent nausea/ vomiting now continue with Zofran, Phenergan 09/14 will give another dose of Emend once nausea has improved and PO intake improves, we can discharge home 09/13 may need another dose of Emend 09/12 appreciate GI input, received Emend x1 initially Zofran, Phenergan, IVFs supportive care, can use Emend once weekly - if okay with GI, appreciate input 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 use to treat HTN continue Norvasc 10mg daily Hydralazine PRN monitor BP and adjust accordingly Lung Adenocarcinoma appreciate Hem/Onc input received 3 out of 4 cycles of chemo continue pain management no palliative care input at this time Neoplasm Related Pain appreciate pain management input Fentanyl dose increased Effexor started no intrathecal pump at this time will try one time dose of intrathecal hydrocodone dose - but cannot due to thrombocytopenia - outpatient f/u after infection is cleared Insulin Dependent DM2 uncontrolled at home, Ha1c ~ 10.4% Lantus 12 units qhs, insulin sliding scale appreciate pharmacy glycemic control DVT ppx Lovenox FULL CODE
[2016-09-18] MEDS: PROMETHAZINE HCL INJ 12.5 MG in SODIUM CHLORIDE 0.9% 50ML 50 ML IV PRN (20:03)
[2016-09-19] MEDS: HYDROmorphone HCL 2 MG TAB PO PRN ×5 (01:28→12:29)
[2016-09-19] MEDS: ONDANSETRON INJ 8 MG in DEXTROSE 5% 50ML 50 ML IV SCH ×2 (01:38→10:25)
[2016-09-19] MEDS: HYDROmorphone INJ 1 MG/ML SYR IV PRN ×3 (04:00→14:11)
[2016-09-19] MEDS: INSULIN ASPART 100 UNITS/ML 3 ML PEN SC SCH ×4 (04:00→14:13)
[2016-09-19 04:36] VITALS: BP 154/88; PULSE 86; TEMP 36.3; O2SAT 94
[2016-09-19 06:03] LABS: HEMATOCRIT 24.7 % (42-52); MEAN CELL VOLUME 86.4 fL (80-100); MEAN CORPUSCULAR HGB CONC 32.4 g/dl (32-36); MEAN PLATELET VOLUME 7.9 fL (7.4-10.4); PLATELET COUNT 304 K/uL (130-400); RED BLOOD COUNT 2.86 M/uL (4.7-6.1); WHITE BLOOD COUNT 12.24 K/uL (4.8-10.8)
[2016-09-19 06:16] VITALS: Ht 177.8 cm; Wt 91.5 kg
[2016-09-19 06:36] LABS: CALCIUM 7.7 mg/dl (8.5-10.1); CREATININE 1.3 mg/dl (0.60-1.40); POTASSIUM 4.6 mmol/L (3.5-5.1)
[2016-09-19 07:31] VITALS: BP 138/74; PULSE 87; TEMP 36.7; O2SAT 91
[2016-09-19] MEDS: MAGNESIUM CHLORIDE 64MG DELAYED REL TAB PO SCH (08:19)
[2016-09-19] MEDS: ASPIRIN 81 MG ECTAB PO SCH (08:19)
[2016-09-19] MEDS: METOPROLOL TARTRATE 25 MG TAB PO SCH (08:19)
[2016-09-19] MEDS: METOCLOPRAMIDE HCL 10 MG TAB PO PRN (08:19)
[2016-09-19] MEDS: PANTOprazole SOD 40 MG TAB PO SCH (08:19)
[2016-09-19] MEDS: CLINDAMYCIN HCL 150 MG CAP PO SCH ×2 (08:19→12:29)
[2016-09-19] MEDS: VENLAFAXINE HCL XR 37.5 MG CAPXR PO SCH (08:19)
[2016-09-19] MEDS: GABAPENTIN 300 MG CAP PO SCH ×2 (08:19→12:29)
[2016-09-19] MEDS: AMLODIPINE BESYLATE 5 MG TAB PO SCH (08:20)
[2016-09-19] MEDS: CHECK FENTANYL PATCH PLACEMENT SCH (08:20)
[2016-09-19] MEDS: INSULIN GLARGINE SOLOSTAR 100 UNITS/ML 3 ML PEN SC SCH (08:23)
[2016-09-19] MEDS ORDERED: CALCIUM GLUCONATE 10% 1,000 MG in SODIUM CHLORIDE 0.9% 50ML 50 ML IV ONE (09:30)
[2016-09-19 11:19] VITALS: BP 160/89; PULSE 92; TEMP 36.8; O2SAT 94
--- NOTE | 2016-09-19 12:03 | Pharmacy Progress Note ---
Glycemic Control: Progress Nt Date of Service September 19, 2016. Scope Glycemic Pharmacist consulted by Marlena Chahal on 09/05/2016 for glycemic control and to write orders per [facility] inpatient glycemic control protocol. Objective Accuchecks BSG (last 24hrs): Test 09/18/16 12:01 09/18/16 12:19 09/18/16 12:45 09/18/16 15:17 Bedside Glucose 55 mg/dl (70-99) 62 mg/dl (70-99) 82 mg/dl (70-99) 62 mg/dl (70-99) Test 09/18/16 16:01 09/18/16 16:33 09/18/16 20:08 09/19/16 00:39 Bedside Glucose 67 mg/dl (70-99) 69 mg/dl (70-99) 106 mg/dl (70-99) 139 mg/dl (70-99) Test 09/19/16 03:53 09/19/16 05:49 09/19/16 07:15 09/19/16 11:06 Bedside Glucose 139 mg/dl (70-99) 169 mg/dl (70-99) 42 mg/dl (70-99) Random Glucose 182 mg/dl (70-99) Test 09/19/16 11:30 Bedside Glucose 54 mg/dl (70-99) Laboratory Data (last 24hrs) Test 09/19/16 05:49 Anion Gap 3.0 mmol/L BUN/Creatinine Ratio 17.0 Blood Urea Nitrogen 22 mg/dl Creatinine 1.30 mg/dl Potassium Level 4.6 mmol/L Sodium Level 141 mmol/L White Blood Count 12.24 K/uL HbA1c: Test 09/14/16 05:56 Hemoglobin A1c 7.4 % (4.5-5.6) H Recent Pertinent Medications Outpatient Anti-diabetic Regimen: * Lantus 25 units HS plus Humalog CF = 10 * A1c = 7.4 % 09/14/16 The patient is currently receiving: * Basal insulin: Lantus 25 units every 24 hours (receiving in morning) * Correctional Insulin: Novolog Correction per scale ACHS Goal Range: Low 110 mg/dL - High 140 mg/dL Correction Factor: 20 mg/dL/unit * Prandial insulin: Per carb ratio of 1 unit per 6 grams CHO consumed Risk Factors for Insulin Resistance: * Infection: facial cellulitis on PO clindamycin * Diet: type 2 diet with good intake Assessment & Plan ASSESSMENT: * ADA & AACE recommend a goal blood sugar range 140-180 mg/dl for the majority of critically ill & non-critically ill patients. However, more stringent targets may be selected in individual cases. However, more stringent targets may be selected in individual cases. Will utilize more stringent goal of 110- 140mg/dl based on patient age & comorbidities. Additionally, tighter glycemic control is warranted to facilitate wound/infection healing. * Mr Hamilton was admitted on 09/05/2016 with a dehydration and vomiting. He has been managed by the glycemic service since admission. His blood sugars have been labile with changing PO intake as well as the addition then discontinuation of dexamethasone 4 mg PO BID. This has been on hold since . * Currently, during the past two afternoons, Mr Hamilton has had hypoglycemia which I believe is due to a large amount of Novolog (19 units on 09/18 and 14 units on 09/19) for high fasting blood sugars. I do not believe Lantus is the problem at this point. Therefore the Novolog parameters have been loosened to reflect a total daily basal rate of 25 units/day. Continue Lantus as his fasting blood sugar this morning was 169 mg/dL which is higher than goal range. PLAN FOR INPATIENT GLYCEMIC CONTROL: * Continuing Lantus 25 units SQ qQM * LOOSEN correction factor to 30 mg/dl/unit * LOOSEN carb ratio to 1 unit per 10 grams CHO consumed * Continuing goal range of Low 110 mg/dL - High 140 mg/dL * Please note that the plan above was derived based on current level of insulin resistance and hospital stress. These recommendations are appropriate for inpatient admission only. Plan of care upon discharge will need to be reassessed to avoid potential outpatient hypo/hyperglycemia. Thank you.
[2016-09-19] MEDS: FENTANYL PATCH REMOVE & WASTE SCH (12:29)
[2016-09-19] MEDS: FENTANYL 75 MCG/HR TDSY TD SCH (12:29)
[2016-09-19] MEDS ORDERED: DRGTP75 TD ×2 (13:16→13:36)
[2016-09-19] MEDS ORDERED: EFFSR375 PO (13:16)
[2016-09-19] MEDS ORDERED: PRT40 PO (13:16)
[2016-09-19] MEDS ORDERED: CLC150 PO ×2 (13:16→13:34)
[2016-09-19 13:27] VITALS: BP 160/89; PULSE 92; TEMP 36.8; O2SAT 94
--- NOTE | 2016-09-19 13:28 | Discharge Instructions ---
Discharge Instructions Date of Service September 19, 2016. Admission Reason for Admission: Nausea/Vomiting, Neutropenia, Orthostatic Hypotens Discharge Discharge Diagnosis / Problem: chemo-induced Nausea/Vomiting, active lung cancer, hypoglycemia, lip infect Discharge Goals Goal(s): Improve disease control Activity Recommendations Activity Limitations: per Instructions/Follow-up section . Instructions / Follow-Up Instructions / Follow-Up Please take all medications as instructed. Please ensure refills for pain medications including the Dilaudid and Fentanyl patches are put into your regular doctor's office in a timely fashion so you don 't run out. Please work with Hematology office or PCP to ensure you don't ge overly dehydrated with cyclic vomiting--may consider weekly IVF treatments in the [facility] as outpatient to keep you out of the hospital. You have a followup appointment with your PCP, Dr. Hu, for 09/26 @ [id number] for folllow-up from this hospitalization. Please also ensure you have an appointment with Dr. Amanda's office in next two weeks to discuss future treatment plans. Please ensure follow-up with Pain Management office in next two weeks to discuss long-term options for pain control, such as that was planned for OR while you were here in the hospital. It was a pleasure taking care of you! Call if you have any questions or problems. You can reach a [facility] hospitalist on duty at [facility] 24 hours a day by calling [phone]. Take care of yourself. Idalmis Lares, [facility] Hospitalist Current Hospital Diet Patient's current hospital diet: Diabetes Type 2 Diet Discharge Diet Recommended Diet: Diabetes Type 1 Diet Pending Studies Studies pending at discharge: no Laboratory Results Hemoglobin A1c Test 09/14/16 05:56 Range/Units Estimated Average Glucose 166 mg/dl Hemoglobin A1c 7.4 H 4.5-5.6 % Medical Emergencies . Who to Call and When: Medical Emergencies: If at any time you feel your situation is an emergency, please call 911 immediately. . Non-Emergent Contact Non-Emergency issues call your: Primary Care Provider, Oncologist . . "Provider Documentation" section prepared by Idalmis Lares. . VTE Core Measure Inpt VTE Proph given/why not?: Enoxaparin (Lovenox)SQ, SCD's [place] Drug Monitoring Program Search Results: see additional documentation (couldn't get into database to review patient)
--- NOTE | 2016-09-19 13:33 | Discharge Summary ---
Discharge Summary Date of Service September 19, 2016. 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 Vaccinations: None. Consultations: Heme/Onc, GI, ID, Pain, ENT Pending Studies/Follow-Up: see instructions below Medication Reconciliation New Medications: Clindamycin HCl (Clindamycin HCl) 150 Mg Cap 300 MG PO TID for 4 Days, #12 CAP Fentanyl (Duragesic) 75 Mcg Tdsy 150 MCG TD Q2D@1000 for 7 Days, #5 PATCH 0 Refills Pantoprazole (Pantoprazole Sodium) 40 Mg Tab 40 MG PO BID for 30 Days, #60 TAB Venlafaxine HCl (Venlafaxine HCl ER) 37.5 Mg Capcr 37.5 MG PO QAM for 30 Days, #30 TAB 0 Refills Continued Medications: Acetaminophen (Tylenol) 500 Mg Tab 1000 MG PO TID PRN for Pain Amlodipine (Norvasc) 10 Mg Tab 10 MG PO DAILY, TAB Aprepitant (Emend) Unknown Strength Cap Unknown Dose take 125 mcg an hour before chemo then take 80 mcg daily for two days following chemo. Aspirin (Aspirin Ec) 81 Mg Tab 81 MG PO QAM Dexamethasone (Decadron) 4 Mg Tab 8 MG PO UD PRN for Chemo Day Of/Day After, TAB TAKE ONLY ON DAY OF AND DAY AFTER CHEMO Epinephrine (Epipen) 0.3 Mg/0.3 Ml Inj 0.3 MG IM UD PRN for ALLERGIC REACTION Gabapentin (Neurontin) 300 Mg Cap 600 MG PO TID, CAP Hydromorphone Hcl (Dilaudid) 2 Mg Tab 8 MG PO Q8 PRN for Pain, TAB Insulin Glargine (Lantus) 100 Unit/Ml Inj 25 UNITS SC QPM, VIAL Insulin Human Lispro (Humalog) 1 Ea Inj 1 DOSE SC UD 1 unit for every 10 greater than 120 Magnesium Chloride (Slow-Mag Tab) 64 Mg Tabcr 64 MG PO BID, TAB Metoclopramide Hcl (Reglan) 10 Mg Tab 10 MG PO ACHS PRN for Nausea, TAB Metoprolol Tartrate (Lopressor) (Lopressor) 25 Mg Tab 25 MG PO BID, TAB Multiple Vitamin (Multivitamins) 1 Cap Cap 1 CAP PO QAM Ondansetron (Ondansetron HCl) 4 Mg Tab 8 MG PO Q8 PRN for Nausea Promethazine Hcl (Phenergan) 12.5 Mg Tab 25 MG PO Q4H PRN for Nausea or Vomiting Discontinued Medications: Fentanyl (Duragesic) 50 Mcg Tdsy 100 MCG TD CQ48HR, PATCH Tapentadol Hcl (Nucynta) 100 Mg Tab 150 MG PO Q6H PRN for Pain, TAB Admission Information HPI (per Admitting provider): Patient seen and examined. 51 year old male with PMHx of Lung CA undergoing chemo, IDDM, gastroparesis, chronic pain presents to the ED complaining of nausea and vomiting x 5 days. Patient reports that he last had chemo on 08/30. He states since then he has had been vomiting - too many episodes to count. He reports he took his home antiemetics including emend, Zofran, Phenergan without relief. He reports he feels generally weak and fatigued. He has not been able to keep anything down. He reports subjective fevers. He denies URI symptoms, chest pain, SOB, diarrhea, hematemesis, dysuria, calf pain and edema. He reports his last BM was this morning. He states his blood sugar has been high since he started vomiting. In the ED patient is very orthostatic, WBC count is 0.89, ANC is 0.38. Mg is 1.4. He received IVFs, Zofran and magnesium. He is resting comfortably. He will be admitted for further workup and treatment. Physical Exam (per Admitting): General Appearance: + pertinent finding (Ill appearing 51 year old male lying in bed in NAD with family at bedside ) Head: normocephalic, atraumatic Eyes: PERRL, EOMI, sclerae normal ENT: hearing grossly normal, pharynx normal Neck: supple, no JVD Respiratory/Chest: chest non-tender, lungs clear, normal breath sounds, no respiratory distress, no accessory muscle use Cardiovascular: no edema, no gallop, no JVD, no murmur, normal peripheral pulses, + tachycardia (100s, regular ) Abdomen/GI: normal bowel sounds, non tender, soft Back: normal inspection, no muscle spasm Extremities/Musculoskelatal: no calf tenderness, normal capillary refill, no pedal edema Neurologic/Psych: alert, oriented x 3, + pertinent finding (nonfocal ) Skin: normal color, warm/dry, no rash Lymphatic: no adenopathy Hospital Course 51 year old male undergoing chemotherapy presents to the ED complaining of vomiting x 5 days. He was initially neutropenic and was unable to tolerate PO. Neutropenia was secondary to recent chemotherapy. As WBC improved naturally, he developed fever and subsequent dental cellulitis which was treated with abx. Throughout entire 14 day stay he was persistently having good PO intake with vomiting shortly afterward, almost in a binge and purge routine. Emend and other high end antiemetics were tried unsuccessfully and he was on scheduled Zofran for several days in a row--all with no help to him. He does have a gastric pacemaker that reportedly requires some recalibration, which needs to be performed in [facility]. He was sent home in guarded condition (active lung cancer with mets-terminal) with close follow-up with PCP. I did discuss with him his issue with readmission 2/2 dehydration 2/2 not able to keep anything down, and we discussed possibly having him go for weekly normal saline infusions at the [facility] as a possible wasy to keep him out of the hospital. Appreciate PCP consideration of this. IMMUNOSUPPRESSION WITH FEVER: -fevers improved with addition of Vanc/Aztreonam -source of infection appears to be R lower jaw swelling 2/2 trauma (hit hospital bed 4 days ago)-appreciate ID eval/recs -recent chemo on 08/30; he is not neutropenic at this time. -of note, fevers continued prior to blood administration and he tolerated the blood today -his IV sites include one peripheral IV in the forearm which does not have signs of infection -repeat urine negative, blood cultures are still pending. -Facial CT with contrast pending, cont broad spectrum abx. Appreciate ID recs. INTRACTABLE CHEMO INDUCED NAUSEA/VOMITING -supportive care methods including pain meds, antiemetics -although still vomiting he is keeping some food down and is able to ambulate around the floor independently -cont Zofran scheduled ANEMIA -s/p 2 U PRBCs yesterday with good response. -repeat CBC was ordered post-transfusion THROMBOCYTOPENIA: -multifactorial with recent chemo and now infection. -PLT transfusion this morning was only performed in preparation for OR procedure which was cancelled in light of infection; pt is not actively bleeding -cont to hold Lovenox at this time HYPERTENSION: -2/2 agitation from vomiting along with nausea and chronic pain -PRN Hydralazine for SBP>180 -cont with Norvasc per home regimen -continue efforts with antiemetics and pain meds LUNG CA -ADENOCARCINOMA -Follows with Dr. Haynes -Received chemo on 08/30 -pain present "all over", started "15 years ago" worse since Sat (5 days ago) -Fentanyl and Dilaudid per pain management team -cont bowel regimen -briefly discussed Palliative Care/Hospice with him today after he informed me that no further chemotherapy treatments would likely be pursued; he states that he is not interested in that at this time and that he will be pursuing second opinions for treatment in the near future. CHRONIC PAIN 2/2 long-standing neuropathy and current situation with cancer on chemotherapy Fentanyl at increased dose and Dilaudid PO -plan for trial shot for ultimate intrathecal pump placement, however, with fever, I would wait until fever has cleared. This was communicated to Pain team. IDDM -with hyperglycemia -close to goal -Not well controlled at baseline recent A1c 10.4 -SSI coverage/Lantus -pharmacy consulted for glycemic control On day of discharge he was afebrile and hemodynamically stable. He had an episode of hypoglycemia, however, this resolved quickly with food. His physical exam was unremarkable and his mouth infection was greatly improved with respect to swelling and erythema. Total time spent on discharge = 60 minutes This includes examination of the patient, discharge planning, medication reconciliation, and communication with other providers. Discharge Instructions Discharge Instructions Date of Service September 19, 2016. Admission Reason for Admission: Nausea/Vomiting, Neutropenia, Orthostatic Hypotens Discharge Discharge Diagnosis / Problem: chemo-induced Nausea/Vomiting, active lung cancer, hypoglycemia, lip infect Discharge Goals Goal(s): Improve disease control Activity Recommendations Activity Limitations: per Instructions/Follow-up section . Instructions / Follow-Up Instructions / Follow-Up Please take all medications as instructed. Please ensure refills for pain medications including the Dilaudid and Fentanyl patches are put into your regular doctor's office in a timely fashion so you don 't run out. Please work with Hematology office or PCP to ensure you don't ge overly dehydrated with cyclic vomiting--may consider weekly IVF treatments in the [facility] as outpatient to keep you out of the hospital. You have a followup appointment with your PCP, Dr. Hu, for 09/26 @ 0915 for folllow-up from this hospitalization. Please also ensure you have an appointment with Dr. Amanda's office in next two weeks to discuss future treatment plans. Please ensure follow-up with Pain Management office in next two weeks to discuss long-term options for pain control, such as that was planned for OR while you were here in the hospital. It was a pleasure taking care of you! Call if you have any questions or problems. You can reach a [facility] hospitalist on duty at [facility] 24 hours a day by calling [phone]. Take care of yourself. Idalmis Lares DO [facility] Hospitalist Current Hospital Diet Patient's current hospital diet: Diabetes Type 2 Diet Discharge Diet Recommended Diet: Diabetes Type 1 Diet Pending Studies Studies pending at discharge: no Laboratory Results Hemoglobin A1c Test 09/14/16 05:56 Range/Units Estimated Average Glucose 166 mg/dl Hemoglobin A1c 7.4 H 4.5-5.6 % Medical Emergencies . Who to Call and When: Medical Emergencies: If at any time you feel your situation is an emergency, please call 911 immediately. . Non-Emergent Contact Non-Emergency issues call your: Primary Care Provider, Oncologist . . "Provider Documentation" section prepared by Idalmis Lares. . VTE Core Measure Inpt VTE Proph given/why not?: Enoxaparin (Lovenox)SQ, SCD's [place] Drug Monitoring Program Search Results: see additional documentation (couldn't get into database to review patient) Additional Copies To Bran Burgess M.D.
[2016-09-19] MEDS ORDERED: CLIN300C2 PO (13:36)
--- NOTE | 2016-09-19 16:13 | Infectious Disease Progress Nt ---
Progress Note Date of Service September 19, 2016. Subjective Pt evaluation today including: conversation w/ patient, physical exam, chart review, lab review, review of studies, review of inpatient medication list Patient is feeling well today. His white blood cell count was 12.24 today. He continues on p.o. clindamycin. His most recent creatinine today it was 1.30. His final culture did grow MSSA. He continues to tolerate p.o. clindamycin well. He feels that his lip swelling has gone down. He did have some mild drainage from his foot last night, but it was all clear fluid. He continues to have nausea and vomiting, but feels this is related to chemotherapy. All Other Systems: Reviewed and Negative Medications Current Inpatient Medications Medications (Trade) Dose Ordered Sig/Cal Route Start Time Stop Time Status Last Admin Dose Admin Acetaminophen (Tylenol Tab) 650 mg Q4H PRN PO 09/05/16 14:45 10/05/16 14:44 09/11/16 16:52 650 MG Al Hydrox/Mg Hydrox/Simethicone (Maalox Max Susp) 15 ml Q4H PRN PO 09/05/16 14:45 10/05/16 14:44 Magnesium Hydroxide (Milk Of Magnesia Susp) 30 ml Q6H PRN PO 09/05/16 14:45 10/05/16 14:44 Polyethylene (Miralax Powder Packet) 17 gm DAILY PRN PO 09/05/16 14:45 10/05/16 14:44 Zolpidem Tartrate 5 mg 5 mg HSZ PRN PO 09/05/16 14:45 10/05/16 14:44 09/16/16 23:48 5 MG Promethazine HCl/ Sodium Chloride (Phenergan Inj/ Nss 50ml) 50.5 ml @ 204 mls/hr Q6H PRN IV 09/05/16 14:45 10/05/16 14:44 09/16/16 20:49 204 MLS/HR Insulin Aspart (novoLOG ASPART) SLIDING SCALE If C... ACHS SC 09/05/16 16:00 10/05/16 15:59 09/17/16 12:38 11 UNITS Glucose (Glucose 40% Gel) 15-30 GRAMS 15 GRAMS... UD PRN PO 09/05/16 14:45 10/05/16 14:44 Glucose (Glucose Chew Tab) 4-8 Tablets 4 Tabl... UD PRN PO 09/05/16 14:45 10/05/16 14:44 Dextrose (Dextrose 50% 50ML Syringe) 25-50ML OF 50% DW IV FOR... UD PRN IV 09/05/16 14:45 10/05/16 14:44 Glucagon (Glucagon Inj) 1 mg UD PRN SQ 09/05/16 14:45 10/05/16 14:44 Miscellaneous Information (Consult Glycemic Management Pharmacy) 1 ea UD PRN N/A 09/05/16 14:51 10/05/16 14:50 Aspirin (Ecotrin Tab) 81 mg QAM PO 09/06/16 08:00 10/06/16 08:59 09/17/16 07:39 81 MG Gabapentin (Neurontin Cap) 600 mg TID PO 09/05/16 20:00 10/05/16 20:59 09/17/16 11:59 600 MG Magnesium Chloride (Slow-Mag Tab) 64 mg BID PO 09/05/16 20:00 10/05/16 20:59 09/17/16 07:40 64 MG Amlodipine Besylate (Norvasc Tab) 10 mg DAILY PO 09/06/16 08:00 10/06/16 08:59 09/17/16 07:39 10 MG Hydralazine HCl 5 mg 5 mg Q6H PRN IV. 09/06/16 22:00 10/06/16 21:59 Ondansetron HCl/ Dextrose (Zofran Inj/D5 50ml) 54 ml @ 216 mls/hr Q8H IV 09/07/16 10:00 10/07/16 09:59 09/17/16 10:15 216 MLS/HR Hydromorphone HCl (Dilaudid Tab) 4 mg Q2H PRN PO 09/09/16 20:15 09/23/16 20:14 09/17/16 11:59 4 MG Hydromorphone HCl (Dilaudid Inj) 0.5 mg Q4H PRN IV 09/10/16 22:45 09/24/16 22:44 09/17/16 11:04 0.5 MG Venlafaxine HCl (effeXOR EXTENDED REL CAP) 37.5 mg QAM PO 09/11/16 10:30 10/11/16 10:29 09/17/16 07:39 37.5 MG Fentanyl (Duragesic Patch) 150 mcg Q2D@1000 TD 09/11/16 10:00 09/25/16 09:59 09/17/16 10:15 150 MCG Miscellaneous (Fentanyl Patch Remove & Waste) 1 ea Q2D@0959 N/A 09/11/16 09:59 10/11/16 09:58 09/17/16 10:18 1 EA Miscellaneous Information (Check Fentanyl Patch Placement) 1 ea QS N/A 09/11/16 16:00 10/11/16 15:59 09/17/16 07:40 1 EA Pantoprazole Sodium (Protonix Tab) 40 mg BID PO 09/11/16 20:00 10/11/16 19:59 09/17/16 07:39 40 MG Clindamycin HCl (Cleocin Cap) 300 mg TID PO 09/14/16 14:00 09/24/16 13:59 09/17/16 11:59 300 MG Metoprolol Tartrate (Lopressor Tab) 25 mg BID PO 09/15/16 20:00 10/15/16 19:59 09/17/16 07:40 25 MG Metoclopramide HCl (Reglan Tab) 10 mg ACHS PRN PO 09/16/16 09:00 10/16/16 08:59 09/17/16 12:00 10 MG Dexamethasone (Decadron Tab) 4 mg BID PO 09/16/16 20:00 10/16/16 19:59 09/17/16 07:39 4 MG Insulin Glargine (Lantus Solostar Pen) 20 unit BID SC 09/17/16 20:00 10/17/16 19:59 Insulin Aspart (novoLOG ASPART) SLIDING SCALE If C... 0000,0400 SC 09/18/16 00:00 10/18/16 00:00 Objective Vital Signs Date Time Temp Pulse Resp B/P Pulse Ox O2 Delivery O2 Flow Rate FiO2 09/19/16 13:27 36.8 92 16 94 Room Air 09/19/16 11:58 Room Air 09/19/16 11:19 36.8 92 16 160/89 94 Room Air 09/19/16 07:31 36.7 87 20 138/74 91 Room Air 09/19/16 04:36 36.3 86 20 154/88 94 Room Air 09/19/16 00:00 Room Air 09/18/16 23:52 36.8 79 20 169/94 92 Room Air 09/18/16 19:32 36.8 93 20 154/86 94 Room Air Physical Exam General Appearance: WD/WN, no apparent distress Eyes: normal inspection, sclerae normal, + pertinent finding (Right bottom lip continues to be mildly edematous. Much improved. No continued drainage.) ENT: hearing grossly normal Neck: supple, trachea midline Respiratory/Chest: no respiratory distress, no accessory muscle use Cardiovascular: regular rate, rhythm Neurologic/Psychiatric: alert, normal mood/affect Skin: normal color, warm/dry, no rash Laboratory Results RUN DATE: 09/14/16 [facility] LAB PAGE 1 RUN TIME: 1103 Specimen Inquiry PATIENT: NIKHIL MARTINS LOC: David # : [id number] AGE/SX: 51/M ROOM: E410 REG : 09/05/[address]: Navya Barfield DO : 1965 BED: 1 DIS : STATUS: ADM IN TLOC: SPEC #: [id number] VADIM: 09/12/16 STATUS: COMP REQ #: [id number] RECD: 09/12/16 [facility] DR: Silvana Munoz . MAURICIO SOURCE: DRAIN-SURF ENTR: 09/12/[address] [facility] [address]: Ike Roca MD SPDESC: Alfredito Juarez, Bran Casiano M.D., Keriann N., Navya Soria, Sarah Soto M.D. Kelly, Colleen A., PA-C Sumner, Sabrina M. , Upendra. Levy M.D. ORDERED: SURF WND CU/[facility] COMMENTS: Specimen Comment From bottom lip Has Specimen Been Obtained/Collected? Y Procedure Result Verified Site GRAM STAIN Final 09/12/16-1438 RESULT NO WBCs SEEN NO ORGANISMS SEEN SURFACE WOUND CULTURE Final 09/14/161103 Organism 1 STAPHYLOCOCCUS AUREUS QUANITY FEW SENS SENSITIVITY TO FOLLOW +MIXWOUND PLUS LOW COUNTS OF PROBABLE ORAL MILAN 1. STAPHYLOCOCCUS AUREUS Target Route Dose RX AB Cost M.I.C. IQ ------ ----- ------ -- ------ -------- - ------ TRIMET/SULFA S <=0.5/ 9.5 * OXACILLIN S <=0.25 VANCOMYCIN S 2 ERYTHROMYCIN S <=0.5 TETRACYCLINE S <=4 CLINDAMYCIN S <=0.5 DAPTOMYCIN S 1 S = SENSITIVE I = INTERMEDIATE R = RESISTANT Last 24 Hours Test 09/18/16 16:33 09/18/16 20:08 09/19/16 00:39 09/19/16 03:53 Bedside Glucose 69 mg/dl 106 mg/dl 139 mg/dl 139 mg/dl Test 09/19/16 05:49 09/19/16 07:15 09/19/16 11:06 09/19/16 11:30 White Blood Count 12.24 K/uL Red Blood Count 2.86 M/uL Hemoglobin 8.0 g/dL Hematocrit 24.7 % Mean Corpuscular Volume 86.4 fL Mean Corpuscular Hemoglobin 28.0 pg Mean Corpuscular Hemoglobin Concent 32.4 g/dl RDW Standard Deviation 47.1 fL RDW Coefficient of Variation 15.0 % Platelet Count 304 K/uL Mean Platelet Volume 7.9 fL Sodium Level 141 mmol/L Potassium Level 4.6 mmol/L Chloride Level 103 mmol/L Carbon Dioxide Level 35 mmol/L Anion Gap 3.0 mmol/L Blood Urea Nitrogen 22 mg/dl Creatinine 1.30 mg/dl Est Creatinine Clear Calc Drug Dose 76.4 ml/min Estimated GFR () 73.2 Estimated GFR (Non- 63.2 BUN/Creatinine Ratio 17.0 Random Glucose 182 mg/dl Calcium Level 7.7 mg/dl Bedside Glucose 169 mg/dl 42 mg/dl 54 mg/dl Test 09/19/16 13:14 Bedside Glucose 109 mg/dl Assessment and Plan Patient with Adenocarcinoma of the lung s/p recent chemotherapy and facial cellulitis with MSSA infection. The wound culture ultimately grew MSSA, but there continues to be concern for anaerobic mouth organisms. The patient was placed on p.o. clindamycin to complete 10 days, and he has a few days left of therapy. He continues to tolerate this medication well. He can follow-up with Infectious Disease as an outpatient as needed for continued symptoms. Thank you. Case reviewed and agree with above assessment.
[2016-10-05] MEDS ORDERED: DRGTP50 TOP (09:21)
[2016-10-05] MEDS ORDERED: FENT100D10 TOP (09:21)
[2016-10-18] MEDS ORDERED: INSDGIPEN SC (14:52)
[2016-10-18] MEDS ORDERED: NVLG SC (15:02)
[2016-12-19] MEDS ORDERED: LEVE750T PO (15:00)
[2016-12-19] MEDS ORDERED: FENT75DI2 EX (15:00)
[2016-12-19] MEDS ORDERED: FOLI1TAB7 PO (15:00)
[2017-01-14] MEDS ORDERED: AMLO-114 PO (09:25)
[2017-01-14] MEDS ORDERED: NRN/600 PO (09:25)
[2017-01-14] MEDS ORDERED: VNTHFA/IN INH (09:25)
[2017-01-31] MEDS ORDERED: VANC1INJ IV (16:05)
[2017-01-31] MEDS ORDERED: INSDGI SC (16:07)
[2017-03-19] MEDS ORDERED: FERR1TAB13 PO (10:26)
[2017-03-19] MEDS ORDERED: HYDR2TAB48 PO (10:26)
[2017-03-19] MEDS ORDERED: PRLSR20 PO (10:26)
[2017-03-19] MEDS ORDERED: PEGSOL13 (10:26)
[2017-03-19] MEDS ORDERED: CEFA1INJ IV (10:26)
[2017-03-19] MEDS ORDERED: HYZ/50125 PO (10:27)
[2017-03-19] MEDS ORDERED: LISI-725 PO (10:27)
[2017-03-19] MEDS ORDERED: DRGTP100 (10:27)
== END 2016-09-19 14:45 | disposition home or self-care (01) | DRG 392 ==
LOC: ENRESERVTM → ENRESERVDT → C.EDB 11:29 → C.4E 14:36 → UNDOADMIN 14:36
PROVIDERS: ADMIT Family Medicine; ATTEND Family Medicine
DX: R11.10 Vomiting, unspecified (principal); D61.818 Other pancytopenia; T45.1X5A Adverse effect of antineoplastic and immunosuppressive drugs, initial encounter; D70.9 Neutropenia, unspecified; D72.819 Decreased white blood cell count, unspecified; E83.42 Hypomagnesemia; I95.1 Orthostatic hypotension; I10 Essential (primary) hypertension; D64.9 Anemia, unspecified; E10.65 Type 1 diabetes mellitus with hyperglycemia; G89.29 Other chronic pain; E08.40 Diabetes mellitus due to underlying condition with diabetic neuropathy, unspecified; Z90.2 Acquired absence of lung [part of]; M27.2 Inflammatory conditions of jaws; B95.61 Methicillin susceptible Staphylococcus aureus infection as the cause of diseases classified elsewhere; D63.8 Anemia in other chronic diseases classified elsewhere; Z87.891 Personal history of nicotine dependence; Z79.82 Long term (current) use of aspirin; Z79.4 Long term (current) use of insulin

== ENCOUNTER 2016-10-14 20:45 | Observation (INO) | payer OTHER ==
[~2016-10-14] VITALS: Ht 172.7 cm; Wt 89.4 kg
[~2016-10-14 20:45] MED LIST changes: +DRGTP50 TOP; -DXM/4 PO; +EFFSR375 PO; +FENT100D10 TOP; -FNTTP50 TD; +PRT40 PO; -TAPE100T2 PO
[2016-10-14] MEDS ORDERED: DiphenhydrAMINE HCL 50 MG/ML VIAL IV STA (21:47)
[2016-10-14] MEDS ORDERED: SODIUM CHLORIDE 0.9% 1000ML 1,000 ML IV STA ×3 (21:47→23:32)
[2016-10-14] MEDS ORDERED: RANITIDINE HCL 50 MG/100 ML D5W IV STA (21:47)
[2016-10-14] MEDS ORDERED: METOCLOPRAMIDE HCL INJ 5 MG/ML 2 ML VIAL IV STA (21:47)
[2016-10-14] MEDS ORDERED: FENTANYL CITRATE INJ 50 MCG/1 ML 2 ML VIAL IV STA ×2 (21:47→23:32)
--- NOTE | 2016-10-14 22:06 | DIAGNOSTIC IMAGING REPORT ---
CHEST ONE VIEW PORTABLE CLINICAL HISTORY: Sepsis COMPARISON STUDY: 09/10/2016 FINDINGS: The cardiac and mediastinal contours are normal. There is no evidence of focal pulmonary consolidation. There is no evidence of failure. No pleural effusions are visualized.[ There is a stable area of linear scar/atelectasis within the left superhilar region. There is mild superior left hilar retraction, unchanged from the prior study, possibly related to prior treatment. IMPRESSION: No active disease in the chest. Electronically signed by: Bruce Salamanca M.D. 10/14/2016 10:05 PM Dictated Date/Time: 10/14/2016 10:03 PM
[2016-10-14 22:45] LABS: BASO % 0.6 %; BASO ABS # 0.04 K/uL (0-0.2); COMPLETE YES; EOS % 2.1 %; HEMATOCRIT 29.3 % (42-52); IG% 0.3 %; LYMPH % 14.5 %; LYMPH ABS # 0.91 K/uL (1.2-3.4); MEAN CELL VOLUME 84.9 fL (80-100); MEAN CORPUSCULAR HEMOGLOBIN 29.6 pg (25-34); MEAN CORPUSCULAR HGB CONC 34.8 g/dl (32-36); MEAN PLATELET VOLUME 9.4 fL (7.4-10.4); MONO % 10.3 %; NEUT % 72.2 %; PLATELET COUNT 194 K/uL (130-400); RED BLOOD COUNT 3.45 M/uL (4.7-6.1); WHITE BLOOD COUNT 6.29 K/uL (4.8-10.8)
[2016-10-14] MEDS ORDERED: PROM25SU28 PR (23:00)
[2016-10-14] MEDS ORDERED: TAPE1TAB11 PO (23:00)
[2016-10-14] MEDS ORDERED: ACET-1311 PO (23:00)
[2016-10-14] MEDS ORDERED: DEXA1TAB16 PO (23:00)
[2016-10-14] MEDS ORDERED: NVLG (23:00)
[2016-10-14] MEDS ORDERED: PANT40TA PO (23:00)
[2016-10-14 23:02] LABS: CALCIUM 8.4 mg/dl (8.5-10.1); PARTIAL THROMBOPLASTIN RATIO 0.9; PROTHROMBIN TIME (PATIENT) 11.2 SECONDS (9.0-12.0)
[2016-10-14 23:18] LABS: ALB/GLOB RATIO 0.8 (0.9-2); ALKALINE PHOSPHATASE 112 U/L (45-117); ALT/SGPT 27 U/L (12-78); AST/SGOT 21 U/L (15-37); BLOOD UREA NITROGEN 27 mg/dl (7-18); BUN/CREATININE RATIO 13.6 (10-20); CARBON DIOXIDE 29 mmol/L (21-32); CHLORIDE 95 mmol/L (98-107); GLUCOSE 425 mg/dl (70-99); MAGNESIUM 1.3 mg/dl (1.8-2.4); POTASSIUM 4.3 mmol/L (3.5-5.1); SODIUM 134 mmol/L (136-145); THYROID STIMULATING HORMONE 0.645 uIu/ml (0.300-4.500)
[2016-10-14] MEDS ORDERED: LORAZEPAM 2 MG/ML 1 ML VIAL IV STA (23:32)
[2016-10-14 23:43] LABS: BETA-HYDROXYBUTYRATE 4.18 mg/dL (0.2-2.81)
[2016-10-15 00:08] LABS: URINE APPEARANCE CLEAR (CLEAR); URINE BILIRUBIN NEG (NEG); URINE COLOR YELLOW; URINE NITRITE NEG (NEG); URINE SPECIFIC GRAVITY 1.028 (1.000-1.030); UROBILINOGEN NEG (NEG); ZZUR CULT IF INDIC CLEAN CATCH NO
[2016-10-15 00:09] LABS: MANUAL MICROSCOPIC REQUIRED? NO; REVIEW REQ? NO
[2016-10-15] MEDS ORDERED: MAGNESIUM HYDROXIDE SUSP 30 ML UDC PO PRN (00:30)
[2016-10-15] MEDS ORDERED: ALUMINUM/MAGNESIUM/SIMETH (MAALOX MAX) 30 ML UDC PO PRN (00:30)
[2016-10-15] MEDS ORDERED: HYDROmorphone HCL 2 MG TAB PO PRN (00:30)
[2016-10-15] MEDS ORDERED: ACETAMINOPHEN 325 MG TAB PO PRN (00:30)
[2016-10-15] MEDS ORDERED: PROMETHAZINE HCL 25 MG SUPP PR PRN (00:30)
[2016-10-15] MEDS ORDERED: TAPENTADOL 150 MG PO PRN (00:30)
[2016-10-15] MEDS ORDERED: FOSAPREPITANT DIMEGLUMINE INJ 115 MG in SODIUM CHLORIDE 0.9% 100ML 111.2 ML IV STA (00:35)
[2016-10-15 00:37] LABS: VEN BLD GAS O2 SATURATION < 60.0 %; VEN BLOOD GAS BASE EXCESS 4.3 mmol/L; VENOUS BLOOD GAS PCO2 53 mmHg (38.0-50.0); VENOUS BLOOD GAS PO2 20 mmHg
[2016-10-15] MEDS ORDERED: IV FLUIDS COMPLETED PRN (00:45)
--- NOTE | 2016-10-15 01:04 | EMERGENCY ROOM VISIT NOTE ---
History First contact with patient: 21:33 Chief Complaint: VOMITING Stated Complaint: VOMITING History of Present Illness The patient is a 51 year old male who presents to the Emergency Room with complaints of nausea, vomiting, chronic pain for the past few days distally getting worse was a cancer patient follows with Dr. Haynes. Patient's last chemotherapy was a month and half ago. No recent radiation. He has non-small cell lung carcinoma. Patient denies fever, chills, cough, congestion, chest pain, dyspnea, headache, neck stiffness. He states he cannot quit vomiting. He 's tried Phenergan and Zofran with no relief of symptoms. Review of Systems See HPI for pertinent positives & negatives. A total of 10 systems reviewed and were otherwise negative. Past Medical/Surgical History Medical Problems: (1) Confusion (2) Diabetes mellitus, type II (3) Diabetic polyneuropathy (4) Facial cellulitis (5) Gastroparesis (6) HTN (hypertension) (7) Intractable nausea and vomiting (8) Lung cancer (9) Nausea and vomiting (10) Neutropenia (11) Orthostatic hypotension Surgical Problems: (1) H/O colonoscopy (2) H/O esophagogastroduodenoscopy (3) History of cholecystectomy (4) History of tonsillectomy and adenoidectomy (5) Hx of total knee arthroplasty (6) S/P lobectomy of lung Family History No pertinent family history Social History Smoking Status: Former Smoker Alcohol Use: none Drug Use: none Marital Status: Housing Status: lives with family Current/Historical Medications Scheduled Amlodipine (Norvasc), 10 MG PO DAILY Aspirin (Aspirin Ec), 81 MG PO QAM Dexamethasone (Dexamethasone), 4 MG PO UD Fentanyl (Fentanyl), 50 MCG TOP Q2D Fentanyl (Duragesic), 100 MCG TOP Q2D Gabapentin (Neurontin), 600 MG PO TID Insulin Glargine (Lantus), 25 UNITS SC QPM Magnesium Chloride (Slow-Mag Tab), 64 MG PO BID Metoprolol Tartrate (Lopressor) (Lopressor), 25 MG PO BID Multiple Vitamin (Multivitamins), 1 CAP PO QAM Pantoprazole (Protonix), 40 MG PO DAILY Venlafaxine HCl (Venlafaxine HCl ER), 37.5 MG PO QAM Scheduled PRN Acetaminophen (Tylenol), 650 MG PO TID PRN for Pain Epinephrine (Epipen), 0.3 MG IM UD PRN for ALLERGIC REACTION Hydromorphone Hcl (Dilaudid), 8 MG PO Q8 PRN for Pain Metoclopramide Hcl (Reglan), 10 MG PO ACHS PRN for Nausea Ondansetron (Ondansetron HCl), 8 MG PO Q8 PRN for Nausea Promethazine Hcl (Phenergan), 12.5 MG PO Q4H PRN for Nausea or Vomiting Promethazine Hcl (Phenergan Suppository), 25 MG ME Q4H PRN for Nausea or Vomiting Tapentadol Hcl (Nucynta Er), 150 MG PO Q6 PRN for Pain Miscellaneous Medications Insulin Aspart (Novolog) Allergies Coded Allergies: BEE STING (Verified Allergy, Mild, SWELLING AT SITE, SOB, 09/05/16) Penicillins (Verified Allergy, Unknown, "SINCE ", 09/05/16) Physical Exam Vital Signs Date Time Temp Pulse Resp B/P (MAP) Pulse Ox O2 Delivery O2 Flow Rate FiO2 10/15/16 00:10 94 19 174/114 98 Room Air 10/14/16 23:15 98 17 179/113 98 Room Air 10/14/16 22:32 104 16 195/117 100 Room Air 10/14/16 21:03 36.4 107 18 143/99 99 Room Air Physical Exam VITALS: Vitals are noted on the nurse's note and reviewed by myself. Vital signs stable. GENERAL: Pleasant male actively vomiting, in no acute distress, nondiaphoretic, well-developed well-nourished. SKIN: The skin was without rashes, erythema, edema, or bruising. There is no tenting of the skin. Capillary reflex less than 2 seconds. HEAD: Normocephalic atraumatic. EARS: External auditory canals clear, tympanic membranes pearly acosta without erythema or effusion bilaterally. EYES: Pupils equal round and reactive to light and accommodation. Conjunctivae without injection, sclerae without icterus. Extraocular movements intact. NOSE: Patent, turbinates without inflammation or discharge. MOUTH: Mucous membranes mildly dry. Pharynx without erythema or exudate. Uvula midline. Airway patent. Tongue does not deviate. NECK: Supple without nuchal rigidity. No lymphadenopathy. No thyromegaly. Cervical spine is nontender. No JVD. HEART: Regular rate and rhythm LUNGS: Clear to auscultation bilaterally without wheezes, rales or rhonchi. No dullness to percussion. No retractions or accessory muscle use. ABDOMEN: Positive bowel sounds x 4. Normal tympanic percussion. Soft, nontender, without masses or organomegaly. Jerez sign negative. No guarding or rebound tenderness. MUSCULOSKELETAL: No muscle atrophy, erythema, or edema noted. NEURO: Patient was alert and oriented to person place and time. Normal sensation to light and sharp touch. No focal neurological deficits. Medical Decision & Procedures Laboratory Results 10/14/16 22:25 Red Blood Count 3.45, Mean Corpuscular Volume 84.9, Mean Corpuscular Hemoglobin 29.6, Mean Corpuscular Hemoglobin Concent 34.8, Mean Platelet Volume 9.4, Neutrophils (%) (Auto) 72.2, Lymphocytes (%) (Auto) 14.5, Monocytes (%) (Auto) 10.3, Eosinophils (%) (Auto) 2.1, Basophils (%) (Auto) 0.6, Neutrophils # (Auto ) 4.54, Lymphocytes # (Auto) 0.91, Monocytes # (Auto) 0.65, Eosinophils # (Auto ) 0.13, Basophils # (Auto) 0.04 10/14/16 22:25 Test 10/14/16 22:25 10/14/16 22:35 10/14/16 22:46 10/14/16 23:45 White Blood Count 6.29 K/uL (4.8-10.8) Red Blood Count 3.45 M/uL (4.7-6.1) Hemoglobin 10.2 g/dL (14.0-18.0) Hematocrit 29.3 % (42-52) Mean Corpuscular Volume 84.9 fL (80-100) Mean Corpuscular Hemoglobin 29.6 pg (25-34) Mean Corpuscular Hemoglobin Concent 34.8 g/dl (32-36) Platelet Count 194 K/uL (130-400) Mean Platelet Volume 9.4 fL (7.4-10.4) Neutrophils (%) (Auto) 72.2 % Lymphocytes (%) (Auto) 14.5 % Monocytes (%) (Auto) 10.3 % Eosinophils (%) (Auto) 2.1 % Basophils (%) (Auto) 0.6 % Neutrophils # (Auto) 4.54 K/uL (1.4-6.5) Lymphocytes # (Auto) 0.91 K/uL (1.2-3.4) Monocytes # (Auto) 0.65 K/uL (0.11-0.59) Eosinophils # (Auto) 0.13 K/uL (0-0.5) Basophils # (Auto) 0.04 K/uL (0-0.2) RDW Standard Deviation 49.4 fL (36.4-46.3) RDW Coefficient of Variation 15.7 % (11.5-14.5) Immature Granulocyte % (Auto) 0.3 % Immature Granulocyte # (Auto) 0.02 K/uL (0.00-0.02) Prothrombin Time 11.2 SECONDS (9.0-12.0) Prothromb Time International Ratio 1.0 (0.9-1.1) Activated Partial Thromboplast Time 24.5 SECONDS (21.0-31.0) Partial Thromboplastin Ratio 0.9 Anion Gap 10.0 mmol/L (3-11) Est Creatinine Clear Calc Drug Dose 42.3 ml/min Estimated GFR () 43.5 Estimated GFR (Non- 37.5 BUN/Creatinine Ratio 13.6 (10-20) Calcium Level 8.4 mg/dl (8.5-10.1) Magnesium Level 1.3 mg/dl (1.8-2.4) Total Bilirubin 0.4 mg/dl (0.2-1) Aspartate Amino Transf (AST/SGOT) 21 U/L (15-37) Alanine Aminotransferase (ALT/SGPT) 27 U/L (12-78) Alkaline Phosphatase 112 U/L (45-117) Total Creatine Kinase 254 U/L (39-308) Creatine Kinase MB 7.5 ng/ml (0.5-3.6) Creatine Kinase MB Ratio 3.0 (0-3.0) Troponin I < 0.015 ng/ml (0-0.045) Total Protein 8.1 gm/dl (6.4-8.2) Albumin 3.5 gm/dl (3.4-5.0) Globulin 4.6 gm/dl (2.5-4.0) Albumin/Globulin Ratio 0.8 (0.9-2) Beta-Hydroxybutyric Acid 4.18 mg/dL (0.2-2.81) Procalcitonin < 0.05 ng/ml (0-0.5) Thyroid Stimulating Hormone (TSH) 0.645 uIu/ml (0.300-4.500) Bedside Lactic Acid Venous 1.20 mmol/L (0.90-1.70) Bedside Troponin I < 0.030 ng/ml (0-0.045) Urine Color YELLOW Urine Appearance CLEAR (CLEAR) Urine pH 5.0 (4.5-7.5) Urine Specific [place] 1.028 (1.000-1.030) Urine Protein 2+ (NEG) Urine Glucose (UA) 3+ (NEG) Urine Ketones NEG (NEG) Urine Occult Blood 1+ (NEG) Urine Nitrite NEG (NEG) Urine Bilirubin NEG (NEG) Urine Urobilinogen NEG (NEG) Urine Leukocyte Esterase NEG (NEG) Urine WBC (Auto) 1-5 /hpf (0-5) Urine RBC (Auto) 0-4 /hpf (0-4) Urine Hyaline Casts (Auto) 1-5 /lpf (0-5) Urine Epithelial Cells (Auto) 10-20 /lpf (0-5) Urine Bacteria (Auto) NEG (NEG) Test 10/15/16 00:03 Venous Blood pH 7.38 (7.36-7.41) Venous Blood Partial Pressure CO2 53 mmHg (38.0-50.0) Venous Blood Partial Pressure O2 20 mmHg Venous Blood HCO3 30 mmol/L Venous Blood Oxygen Saturation < 60.0 % Venous Blood Base Excess 4.3 mmol/L Medications Administered Medications (Trade) Dose Ordered Sig/Cal Route Start Time Stop Time Status Last Admin Dose Admin Sodium Chloride 1,000 ml @ 999 mls/hr Q1H1M STAT IV 10/14/16 21:47 10/14/16 22:47 DC 10/14/16 22:24 999 MLS/HR Sodium Chloride 1,000 ml @ 125 mls/hr Q8H STAT IV 10/14/16 21:47 10/15/16 05:46 10/14/16 23:22 125 MLS/HR Metoclopramide HCl (Reglan Inj) 10 mg NOW STAT IV 10/14/16 21:47 10/14/16 21:50 DC 10/14/16 22:24 10 MG Diphenhydramine HCl (Benadryl Inj) 25 mg NOW STAT IV 10/14/16 21:47 10/14/16 21:50 DC 10/14/16 22:25 25 MG Ranitidine HCl (zANTac IV) 50 mg NOW STAT IV 10/14/16 21:47 10/14/16 21:50 DC 10/14/16 22:24 50 MG Fentanyl Citrate (Fentanyl Inj) 50 mcg NOW STAT IV 10/14/16 21:47 10/14/16 21:50 DC 10/14/16 22:25 50 MCG Lorazepam (Ativan Inj) 1 mg NOW STAT IV 10/14/16 23:32 10/14/16 23:34 DC 10/15/16 00:07 1 MG Fentanyl Citrate (Fentanyl Inj) 100 mcg NOW STAT IV 10/14/16 23:32 10/14/16 23:34 DC 10/15/16 00:08 100 MCG Sodium Chloride 1,000 ml @ 999 mls/hr Q1H1M STAT IV 10/14/16 23:32 10/15/16 00:32 DC 10/15/16 00:08 999 MLS/HR ED Course Prior records/ancillary studies reviewed. Triage Nursing notes reviewed. The patient's history was concerning for nausea, vomiting, cancer patient with chronic pain Differential diagnosis: Etiologies such as vomiting from cancer treatment, cancer pain, gastroenteritis , food borne illness, infections, appendicitis, diverticulitis, inflammatory bowel disease, obstruction, GI bleed, biliary pathology, as well as others were entertained. Physical examination findings: As above. Abdominal examination revealed no tenderness. Vital signs reviewed and revealed stable. ER treatment provided: IV hydration 2 L NSS. Fentanyl, Ativan, Reglan, Benadryl On reassessment the patient felt better. Patient was tolerating p.o. intake. Diagnostics interpretation by me: The labs revealed hyperglycemia without DKA Creatinine 2. Higher from baseline. Imaging studies: CHEST ONE VIEW PORTABLE CLINICAL HISTORY: Sepsis COMPARISON STUDY: 09/10/2016 FINDINGS: The cardiac and mediastinal contours are normal. There is no evidence of focal pulmonary consolidation. There is no evidence of failure. No pleural effusions are visualized.[ There is a stable area of linear scar/atelectasis within the left superhilar region. There is mild superior left hilar retraction, unchanged from the prior study, possibly related to prior treatment. IMPRESSION: No active disease in the chest. Electronically signed by: Bruce Salamanca M.D. Consultation: A consultation was placed with Dr Barfield, hospitalist. The case was discussed and diagnostics were reviewed. The patient was evaluated in the ER for further treatment. This appears to be consistent with intractable vomiting with non-small cell lung carcinoma and acute renal injury with hyperglycemia with diabetes. Patient to need to vomit despite multiple rounds of antiemetics. He will be evaluated by medicine. He did not have acute abdomen on exam. He was not in DKA. He was hydrated as above. By the evaluation outlined above emergent etiologies such as appendicitis, diverticulitis, obstruction, cardiac sources, mesenteric ischemia, aortic pathology, inflammatory bowel disease, renal colic, PUD, biliary pathology, UTI, as well as others were deemed relatively unlikely. The pt informed about the findings as listed above. All questions were answered and pleased with the treatment. Case reviewed with my Attending. Medical Decision As above Impression Primary Impression: Intractable nausea and vomiting Additional Impressions: Diabetes mellitus with hyperglycemia Acute kidney injury Departure Information Dispostion Being Evaluated By Hospitalist Condition FAIR Referrals Bran Burgess M.D. 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
[2016-10-15] MEDS ORDERED: MAGNESIUM SULFATE 1GM / D5W 2 GM in PREMIXED IN D5W 100 ML IV STA (01:41)
[2016-10-15] MEDS ORDERED: MAGNESIUM SULFATE 1GM / D5W 1 GM BAG ONE (01:53)
[2016-10-15] MEDS ORDERED: DEXTROSE 50% 50 ML SYR IV PRN ×2 (02:45→03:45)
[2016-10-15] MEDS ORDERED: GLUCAGON FOR INJ 1 MG VIAL SQ PRN ×2 (02:45→03:45)
[2016-10-15] MEDS ORDERED: GLUCOSE 10 TABS/TUBE PO PRN ×2 (02:45→03:45)
[2016-10-15] MEDS ORDERED: GLUCOSE 40% GEL 15 GM TUBE PO PRN ×2 (02:45→03:45)
[2016-10-15] MEDS: SODIUM CHLORIDE 0.9% 1000ML 1,000 ML IV SCH ×3 (02:59→22:47)
[2016-10-15] MEDS: CHECK FENTANYL PATCH PLACEMENT SCH ×3 (03:00→16:27)
[2016-10-15 03:13] VITALS: BP 154/100; PULSE 98; TEMP 36.7; O2SAT 98; BMI 23.4
[2016-10-15] MEDS: FENTANYL 100 MCG/HR TDSY TD SCH (03:52)
[2016-10-15] MEDS: FENTANYL 50 MCG/HR TDSY TD SCH (03:53)
--- NOTE | 2016-10-15 03:58 | History and Physical ---
History & Physical Date & Time of Service: Oct 15, 2016 at 03:37 Chief Complaint: Intractable Nausea And Vomiting Primary Care Physician: Bran Burgess M.D. History of Present Illness Source: patient, clinic records, hospital records This is a 51 year old male with PMH of non-small cell lung CA of the left upper lung, uncontrolled, insulin-dependent DM2, chronic pain is here due to intractable nausea/vomiting - states that he can't keep anything down; went to [place] [facility], and was discharged after getting fluids - he continues to have nausea/vomiting; was to have gastric pacemaker adjusted; but states that due to a potential pain management procedure, that this cannot be done. States that Emend usually works for this. Worried about his pain and that it is not controlled. Denies chest pain/shortness of breath. Past Medical/Surgical History Medical Problems: (1) Diabetes mellitus, type II Status: Chronic (2) Diabetic polyneuropathy Status: Chronic (3) Gastroparesis Permanent Comment: s/p gastric stimulator Status: Chronic (4) HTN (hypertension) Status: Chronic (5) Lung cancer Permanent Comment: dx 01/2016; s/p L side lobectomy; currently undergoing chemo Status: Chronic Surgical Problems: (1) H/O colonoscopy Permanent Comment: 04/22/2013- Mildly congested and erythematous mucosa in the ascending colon. One 1 mm polyp in the ascending colon resected. One benign appearing 1 mm polyp in the rectum resected. Internal hemorrhoids; Dr. Demarco Status: Chronic (2) H/O esophagogastroduodenoscopy Permanent Comment: 01/26/2015- LA Grade B reflux esophagitis, gastritis; Dr. Major Status: Chronic (3) History of cholecystectomy Status: Resolved (4) History of tonsillectomy and adenoidectomy Status: Resolved (5) Hx of total knee arthroplasty Status: Resolved (6) S/P lobectomy of lung Permanent Comment: L side @ [facility] 05/25/16 Status: Resolved Family History No pertinent family history Social History Smoking Status: Former Smoker Drug Use: none Marital Status: Housing status: lives with significant other Multi-Drug Resistant Organisms History of MDRO: No Allergies Coded Allergies: BEE STING (Verified Allergy, Mild, SWELLING AT SITE, SOB, 09/05/16) Penicillins (Verified Allergy, Unknown, "SINCE ", 09/05/16) Home Medications Scheduled Amlodipine (Norvasc), 10 MG PO DAILY Aspirin (Aspirin Ec), 81 MG PO QAM Dexamethasone (Dexamethasone), 4 MG PO UD Fentanyl (Fentanyl), 50 MCG TOP Q2D Fentanyl (Duragesic), 100 MCG TOP Q2D Gabapentin (Neurontin), 600 MG PO TID Insulin Glargine (Lantus), 25 UNITS SC QPM Magnesium Chloride (Slow-Mag Tab), 64 MG PO BID Metoprolol Tartrate (Lopressor) (Lopressor), 25 MG PO BID Multiple Vitamin (Multivitamins), 1 CAP PO QAM Pantoprazole (Protonix), 40 MG PO DAILY Venlafaxine HCl (Venlafaxine HCl ER), 37.5 MG PO QAM Scheduled PRN Acetaminophen (Tylenol), 650 MG PO TID PRN for Pain Epinephrine (Epipen), 0.3 MG IM UD PRN for ALLERGIC REACTION Hydromorphone Hcl (Dilaudid), 8 MG PO Q8 PRN for Pain Metoclopramide Hcl (Reglan), 10 MG PO ACHS PRN for Nausea Ondansetron (Ondansetron HCl), 8 MG PO Q8 PRN for Nausea Promethazine Hcl (Phenergan), 12.5 MG PO Q4H PRN for Nausea or Vomiting Promethazine Hcl (Phenergan Suppository), 25 MG GA Q4H PRN for Nausea or Vomiting Tapentadol Hcl (Nucynta Er), 150 MG PO Q6 PRN for Pain Miscellaneous Medications Insulin Aspart (Novolog) Review of Systems Constitutional: + weakness, No fever, No chills Respiratory: No cough, No sputum, No wheezing, No shortness of breath, No dyspnea on exertion Cardiovascular: No chest pain Abdomen: + pain, + nausea, + vomiting, No diarrhea, No constipation, No GI bleeding Musculoskeletal: + joint pain (chronic pain, diffuse, back), + muscle pain Genitourinary - Male: No dysuria, No urinary frequency Neurologic: + weakness, + numbness/tingling, No memory loss, No vertigo, No balance problems Psychiatric: No depression symptoms, No anxiety Endocrine: No fatigue Hematologic / Lymphatic: No abnormal bleeding/bruising Integumentary: No rash Allergic / Immunologic: No environmental allergies, No seasonal allergies Physical Exam Vital Signs Date Time Temp Pulse Resp B/P (MAP) Pulse Ox O2 Delivery O2 Flow Rate FiO2 10/15/16 03:13 36.7 98 18 154/100 98 Room Air 10/15/16 02:22 88 16 143/91 98 Room Air 10/15/16 01:28 95 14 134/89 99 Room Air 10/15/16 00:10 94 19 174/114 98 Room Air 10/14/16 23:15 98 17 179/113 98 Room Air 10/14/16 22:32 104 16 195/117 100 Room Air 10/14/16 21:03 36.4 107 18 143/99 99 Room Air General Appearance: + mild distress (secondary to nausea) Head: normocephalic, atraumatic Eyes: normal inspection ENT: hearing grossly normal Neck: supple Respiratory/Chest: lungs clear, normal breath sounds, no respiratory distress, no accessory muscle use Cardiovascular: regular rate, rhythm, no edema, no murmur Abdomen/GI: normal bowel sounds, soft, + tenderness (mildly tender diffusely) Extremities/Musculoskelatal: normal capillary refill, no pedal edema Neurologic/Psych: no motor/sensory deficits, alert, normal mood/affect Skin: normal color Diagnostics Laboratory Results Results Past 24 Hours Test 10/14/16 22:25 10/14/16 22:35 10/14/16 22:46 10/14/16 23:45 Range/Units White Blood Count 6.29 4.8-10.8 K/uL Red Blood Count 3.45 4.7-6.1 M/uL Hemoglobin 10.2 14.0-18.0 g/dL Hematocrit 29.3 42-52 % Mean Corpuscular Volume 84.9 80-100 fL Mean Corpuscular Hemoglobin 29.6 25-34 pg Mean Corpuscular Hemoglobin Concent 34.8 32-36 g/dl Platelet Count 194 130-400 K/uL Mean Platelet Volume 9.4 7.4-10.4 fL Neutrophils (%) (Auto) 72.2 % Lymphocytes (%) (Auto) 14.5 % Monocytes (%) (Auto) 10.3 % Eosinophils (%) (Auto) 2.1 % Basophils (%) (Auto) 0.6 % Neutrophils # (Auto) 4.54 1.4-6.5 K/uL Lymphocytes # (Auto) 0.91 1.2-3.4 K/uL Monocytes # (Auto) 0.65 0.11-0.59 K/uL Eosinophils # (Auto) 0.13 0-0.5 K/uL Basophils # (Auto) 0.04 0-0.2 K/uL RDW Standard Deviation 49.4 36.4-46.3 fL RDW Coefficient of Variation 15.7 11.5-14.5 % Immature Granulocyte % (Auto) 0.3 % Immature Granulocyte # (Auto) 0.02 0.00-0.02 K/uL Prothrombin Time 11.2 9.0-12.0 SECONDS Prothromb Time International Ratio 1.0 0.9-1.1 Activated Partial Thromboplast Time 24.5 21.0-31.0 SECONDS Partial Thromboplastin Ratio 0.9 Sodium Level 134 136-145 mmol/L Potassium Level 4.3 3.5-5.1 mmol/L Chloride Level 95 98-107 mmol/L Carbon Dioxide Level 29 21-32 mmol/L Anion Gap 10.0 3-11 mmol/L Blood Urea Nitrogen 27 7-18 mg/dl Creatinine 2.00 0.60-1.40 mg/dl Est Creatinine Clear Calc Drug Dose 42.3 ml/min Estimated GFR () 43.5 Estimated GFR (Non- 37.5 BUN/Creatinine Ratio 13.6 10-20 Random Glucose 425 70-99 mg/dl Calcium Level 8.4 8.5-10.1 mg/dl Magnesium Level 1.3 1.8-2.4 mg/dl Total Bilirubin 0.4 0.2-1 mg/dl Aspartate Amino Transf (AST/SGOT) 21 15-37 U/L Alanine Aminotransferase (ALT/SGPT) 27 12-78 U/L Alkaline Phosphatase 112 45-117 U/L Total Creatine Kinase 254 39-308 U/L Creatine Kinase MB 7.5 0.5-3.6 ng/ml Creatine Kinase MB Ratio 3.0 0-3.0 Troponin I < 0.015 0-0.045 ng/ml Total Protein 8.1 6.4-8.2 gm/dl Albumin 3.5 3.4-5.0 gm/dl Globulin 4.6 2.5-4.0 gm/dl Albumin/Globulin Ratio 0.8 0.9-2 Beta-Hydroxybutyric Acid 4.18 0.2-2.81 mg/dL Procalcitonin < 0.05 0-0.5 ng/ml Thyroid Stimulating Hormone (TSH) 0.645 0.300-4.500 uIu/ml Bedside Lactic Acid Venous 1.20 0.90-1.70 mmol/L Bedside Troponin I < 0.030 0-0.045 ng/ml Urine Color YELLOW Urine Appearance CLEAR CLEAR Urine pH 5.0 4.5-7.5 Urine Specific [place] 1.028 1.000-1.030 Urine Protein 2+ NEG Urine Glucose (UA) 3+ NEG Urine Ketones NEG NEG Urine Occult Blood 1+ NEG Urine Nitrite NEG NEG Urine Bilirubin NEG NEG Urine Urobilinogen NEG NEG Urine Leukocyte Esterase NEG NEG Urine WBC (Auto) 1-5 0-5 /hpf Urine RBC (Auto) 0-4 0-4 /hpf Urine Hyaline Casts (Auto) 1-5 0-5 /lpf Urine Epithelial Cells (Auto) 10-20 0-5 /lpf Urine Bacteria (Auto) NEG NEG Test 10/15/16 00:03 10/15/16 01:43 Range/Units Venous Blood pH 7.38 7.36-7.41 Venous Blood Partial Pressure CO2 53 38.0-50.0 mmHg Venous Blood Partial Pressure O2 20 mmHg Venous Blood HCO3 30 mmol/L Venous Blood Oxygen Saturation < 60.0 % Venous Blood Base Excess 4.3 mmol/L Bedside Glucose 316 70-99 mg/dl Microbiology Results 10/14/16 Blood Culture, Received Pending 10/14/16 Blood Culture, Received Pending Diagnostic Radiology CHEST ONE VIEW PORTABLE CLINICAL HISTORY: Sepsis COMPARISON STUDY: 09/10/2016 FINDINGS: The cardiac and mediastinal contours are normal. There is no evidence of focal pulmonary consolidation. There is no evidence of failure. No pleural effusions are visualized.[ There is a stable area of linear scar/atelectasis within the left superhilar region. There is mild superior left hilar retraction, unchanged from the prior study, possibly related to prior treatment. IMPRESSION: No active disease in the chest. Impression Assessment and Plan This is a 51 year old male with PMH of non-small cell lung CA of the left upper lung, uncontrolled, insulin-dependent DM2, chronic pain presents with intractable nausea/vomiting Intractable Nausea/Vomiting patient has issues with nausea/vomiting chronically gastric pacemaker is placed, needs to be adjusted no longer getting chemo/radiation for the lung CA will try Emend x1 Zofran, Phenergan PRN Reglan PRN PPI Acute Kidney Injury likely secondary to nausea/vomiting creatinine bumped to 2.0 baseline is lower 1's IVFs and monitor creat, avoid nephrotoxic agents when able Intractable Pain narcotic seeking behavior Fentanyl 150mcg patch, q48hrs Dilaudid 8mg q8hrs. follows with pain management will not change these meds for now, if pain not controlled, may need to consult pain management Insulin Dependent DM2 uncontrolled blood sugars chronic dexamethasone Lantus 20 units at night, insulin sliding scale adjust this accordingly DVT ppx subq heparin; monitor platelet count FULL CODE Advanced Directives Existing Living Will: Yes Existing Power of Manager Contracting: Yes VTE Prophylaxis VTE Risk Assessment Done? Y/N: Yes Risk Level: Moderate
[2016-10-15 07:19] LABS: HEMATOCRIT 26.7 % (42-52); MEAN CORPUSCULAR HEMOGLOBIN 29.9 pg (25-34); MEAN CORPUSCULAR HGB CONC 35.2 g/dl (32-36); MEAN PLATELET VOLUME 8.9 fL (7.4-10.4); PLATELET COUNT 161 K/uL (130-400); RED BLOOD COUNT 3.14 M/uL (4.7-6.1); WHITE BLOOD COUNT 5.81 K/uL (4.8-10.8)
[2016-10-15 07:49] LABS: BUN/CREATININE RATIO 14.9 (10-20); CALCIUM 8.2 mg/dl (8.5-10.1); CREATININE 1.6 mg/dl (0.60-1.40); MAGNESIUM 1.9 mg/dl (1.8-2.4); POTASSIUM 3.8 mmol/L (3.5-5.1)
[2016-10-15 07:57] VITALS: BP_SYST 157; BP_SYST 166; BP_DIAS 95; BP_DIAS 97; PULSE 83; TEMP 36.8; O2SAT 96
[2016-10-15] MEDS: ONDANSETRON INJ 2 MG/ML 2 ML VIAL IV PRN ×2 (08:15→17:04)
[2016-10-15] MEDS: MAGNESIUM CHLORIDE 64MG DELAYED REL TAB PO SCH ×2 (08:16→21:04)
[2016-10-15] MEDS: ASPIRIN 81 MG ECTAB PO SCH (08:16)
[2016-10-15] MEDS: METOPROLOL TARTRATE 25 MG TAB PO SCH ×2 (08:16→21:04)
[2016-10-15] MEDS: AMLODIPINE BESYLATE 5 MG TAB PO SCH (08:16)
[2016-10-15] MEDS: DEXAMETHASONE 4 MG TAB PO SCH (08:17)
[2016-10-15] MEDS: VENLAFAXINE HCL XR 37.5 MG CAPXR PO SCH (08:17)
[2016-10-15] MEDS: PANTOprazole SOD 40 MG TAB PO SCH (08:17)
[2016-10-15] MEDS: GABAPENTIN 300 MG CAP PO SCH ×3 (08:17→21:04)
[2016-10-15] MEDS: HEPARIN SOD 5000 UNIT/0.5 ML CARP SQ SCH ×2 (08:22→21:01)
[2016-10-15] MEDS: INSULIN ASPART 100 UNITS/ML 3 ML PEN SC SCH ×4 (08:22→21:00)
[2016-10-15] MEDS ORDERED: FENTANYL PATCH REMOVE & WASTE SCH (08:59)
[2016-10-15] MEDS ORDERED: FENTANYL 100 MCG/HR TDSY TD SCH (09:00)
[2016-10-15] MEDS ORDERED: FENTANYL 50 MCG/HR TDSY TD SCH (09:00)
--- NOTE | 2016-10-15 11:28 | Progress Note ---
Internal Med Progress Note Date of Service: Oct 15, 2016. Provider Documentation: SUBJECTIVE: Seen and examined at bedside. States having generalized body ache. Reports 2 episodes of vomiting this morning. Denies abd pain, chest pain, SOB. Also reports having diarrhea. OBJECTIVE: Vital Signs-as noted below Physical Exam: General Appearance:Moderately built and nourished, no apparent distress Head: normocephalic, Atraumatic Eyes: normal inspection, EOMI, PERRL Neck: supple, Trachea midline Respiratory/Chest: Normal breath sounds, CTA Cardiovascular: S1, S2, No murmur Abdomen/GI:Soft, Non tender, Bowel sounds present Extremities/Musculoskelatal:normal inspection, no edema Neurologic/Psych:grossly no focal neurological deficits Skin: normal color, warm Lab data as noted below. ASSESSMENT & PLAN: Patient is a 51 yr male with PMH of non-small cell lung CA of the left upper lung, uncontrolled DM II, chronic pain presents with intractable nausea/vomiting Intractable Nausea/Vomiting patient has issues with nausea/vomiting chronically Needs adjustment with gastric pacemaker as outpatient Currently not on chemo/radiation for lung CA S/P Emend x1 Continue Zofran, Phenergan, Reglan PRN Continue PPI IVAN likely Prerenal from nausea/vomiting cr 2.0 >>>1.6 baseline is lower 1's Continue IVF. Monitor renal function Diarrhea: Reports oral antibiotic use 10 days ago Check stool for C.diff if diarrhea persistent Intractable Pain Narcotic seeking behavior Fentanyl 150mcg patch, q48hrs Dilaudid 8mg q8hrs. follows with pain management Will consult pain management if necessary Non-small cell lung CA Currently not on chemo/radiation therapy Follows with DM II uncontrolled blood sugars chronic dexamethasone Lantus 20 units at night, insulin sliding scale Blood sugar levels better Continue to monitor DVT Px: Heparin SQ Code Status: FULL CODE Vital Signs: Date Time Temp Pulse Resp B/P (MAP) Pulse Ox O2 Delivery O2 Flow Rate FiO2 10/15/16 08:00 Room Air 10/15/16 07:57 36.8 83 16 166/97 (120) 96 157/95 (115) 10/15/16 03:13 36.7 98 18 154/100 98 Room Air 10/15/16 02:22 88 16 143/91 98 Room Air 10/15/16 01:28 95 14 134/89 99 Room Air 10/15/16 00:10 94 19 174/114 98 Room Air 10/14/16 23:15 98 17 179/113 98 Room Air 10/14/16 22:32 104 16 195/117 100 Room Air 10/14/16 21:03 36.4 107 18 143/99 99 Room Air Lab Results: Results Past 24 Hours Test 10/14/16 22:25 10/14/16 22:35 10/14/16 22:46 10/14/16 23:45 Range/Units White Blood Count 6.29 4.8-10.8 K/uL Red Blood Count 3.45 4.7-6.1 M/uL Hemoglobin 10.2 14.0-18.0 g/dL Hematocrit 29.3 42-52 % Mean Corpuscular Volume 84.9 80-100 fL Mean Corpuscular Hemoglobin 29.6 25-34 pg Mean Corpuscular Hemoglobin Concent 34.8 32-36 g/dl Platelet Count 194 130-400 K/uL Mean Platelet Volume 9.4 7.4-10.4 fL Neutrophils (%) (Auto) 72.2 % Lymphocytes (%) (Auto) 14.5 % Monocytes (%) (Auto) 10.3 % Eosinophils (%) (Auto) 2.1 % Basophils (%) (Auto) 0.6 % Neutrophils # (Auto) 4.54 1.4-6.5 K/uL Lymphocytes # (Auto) 0.91 1.2-3.4 K/uL Monocytes # (Auto) 0.65 0.11-0.59 K/uL Eosinophils # (Auto) 0.13 0-0.5 K/uL Basophils # (Auto) 0.04 0-0.2 K/uL RDW Standard Deviation 49.4 36.4-46.3 fL RDW Coefficient of Variation 15.7 11.5-14.5 % Immature Granulocyte % (Auto) 0.3 % Immature Granulocyte # (Auto) 0.02 0.00-0.02 K/uL Prothrombin Time 11.2 9.0-12.0 SECONDS Prothromb Time International Ratio 1.0 0.9-1.1 Activated Partial Thromboplast Time 24.5 21.0-31.0 SECONDS Partial Thromboplastin Ratio 0.9 Sodium Level 134 136-145 mmol/L Potassium Level 4.3 3.5-5.1 mmol/L Chloride Level 95 98-107 mmol/L Carbon Dioxide Level 29 21-32 mmol/L Anion Gap 10.0 3-11 mmol/L Blood Urea Nitrogen 27 7-18 mg/dl Creatinine 2.00 0.60-1.40 mg/dl Est Creatinine Clear Calc Drug Dose 42.3 ml/min Estimated GFR () 43.5 Estimated GFR (Non- 37.5 BUN/Creatinine Ratio 13.6 10-20 Random Glucose 425 70-99 mg/dl Calcium Level 8.4 8.5-10.1 mg/dl Magnesium Level 1.3 1.8-2.4 mg/dl Total Bilirubin 0.4 0.2-1 mg/dl Aspartate Amino Transf (AST/SGOT) 21 15-37 U/L Alanine Aminotransferase (ALT/SGPT) 27 12-78 U/L Alkaline Phosphatase 112 45-117 U/L Total Creatine Kinase 254 39-308 U/L Creatine Kinase MB 7.5 0.5-3.6 ng/ml Creatine Kinase MB Ratio 3.0 0-3.0 Troponin I < 0.015 0-0.045 ng/ml Total Protein 8.1 6.4-8.2 gm/dl Albumin 3.5 3.4-5.0 gm/dl Globulin 4.6 2.5-4.0 gm/dl Albumin/Globulin Ratio 0.8 0.9-2 Beta-Hydroxybutyric Acid 4.18 0.2-2.81 mg/dL Procalcitonin < 0.05 0-0.5 ng/ml Thyroid Stimulating Hormone (TSH) 0.645 0.300-4.500 uIu/ml Bedside Lactic Acid Venous 1.20 0.90-1.70 mmol/L Bedside Troponin I < 0.030 0-0.045 ng/ml Urine Color YELLOW Urine Appearance CLEAR CLEAR Urine pH 5.0 4.5-7.5 Urine Specific [place] 1.028 1.000-1.030 Urine Protein 2+ NEG Urine Glucose (UA) 3+ NEG Urine Ketones NEG NEG Urine Occult Blood 1+ NEG Urine Nitrite NEG NEG Urine Bilirubin NEG NEG Urine Urobilinogen NEG NEG Urine Leukocyte Esterase NEG NEG Urine WBC (Auto) 1-5 0-5 /hpf Urine RBC (Auto) 0-4 0-4 /hpf Urine Hyaline Casts (Auto) 1-5 0-5 /lpf Urine Epithelial Cells (Auto) 10-20 0-5 /lpf Urine Bacteria (Auto) NEG NEG Test 10/15/16 00:03 10/15/16 01:43 10/15/16 04:52 10/15/16 06:52 Range/Units Venous Blood pH 7.38 7.36-7.41 Venous Blood Partial Pressure CO2 53 38.0-50.0 mmHg Venous Blood Partial Pressure O2 20 mmHg Venous Blood HCO3 30 mmol/L Venous Blood Oxygen Saturation < 60.0 % Venous Blood Base Excess 4.3 mmol/L Bedside Glucose 316 326 70-99 mg/dl White Blood Count 5.81 4.8-10.8 K/uL Red Blood Count 3.14 4.7-6.1 M/uL Hemoglobin 9.4 14.0-18.0 g/dL Hematocrit 26.7 42-52 % Mean Corpuscular Volume 85.0 80-100 fL Mean Corpuscular Hemoglobin 29.9 25-34 pg Mean Corpuscular Hemoglobin Concent 35.2 32-36 g/dl RDW Standard Deviation 49.8 36.4-46.3 fL RDW Coefficient of Variation 15.7 11.5-14.5 % Platelet Count 161 130-400 K/uL Mean Platelet Volume 8.9 7.4-10.4 fL Sodium Level 138 136-145 mmol/L Potassium Level 3.8 3.5-5.1 mmol/L Chloride Level 101 98-107 mmol/L Carbon Dioxide Level 28 21-32 mmol/L Anion Gap 9.0 3-11 mmol/L Blood Urea Nitrogen 24 7-18 mg/dl Creatinine 1.60 0.60-1.40 mg/dl Est Creatinine Clear Calc Drug Dose 52.8 ml/min Estimated GFR () 57.0 Estimated GFR (Non- 49.2 BUN/Creatinine Ratio 14.9 10-20 Random Glucose 298 70-99 mg/dl Calcium Level 8.2 8.5-10.1 mg/dl Magnesium Level 1.9 1.8-2.4 mg/dl Test 10/15/16 07:49 Range/Units Bedside Glucose 288 70-99 mg/dl Microbiology Results 10/14/16 Blood Culture, Received Pending 10/14/16 Blood Culture, Received Pending
[2016-10-15 12:32] VITALS: BP 175/95; PULSE 78; TEMP 36.3; O2SAT 98
[2016-10-15] MEDS: HYDROmorphone HCL 2 MG TAB PO PRN ×3 (12:47→21:05)
[2016-10-15 15:19] VITALS: BMI 23.3
[2016-10-15] MEDS: PROMETHAZINE HCL 25 MG TAB PO PRN ×2 (17:27→22:50)
[2016-10-15] MEDS: INSULIN GLARGINE SOLOSTAR 100 UNITS/ML 3 ML PEN SC SCH (20:59)
[2016-10-15] MEDS: METOCLOPRAMIDE HCL 10 MG TAB PO PRN (21:06)
[2016-10-15 23:56] VITALS: BP 154/92; PULSE 87; TEMP 36.6; O2SAT 98
[2016-10-16] MEDS: CHECK FENTANYL PATCH PLACEMENT SCH ×4 (00:04→23:28)
[2016-10-16] MEDS: HYDROmorphone HCL 2 MG TAB PO PRN ×6 (01:15→21:12)
[2016-10-16 01:19] VITALS: BP 148/84; PULSE 93; TEMP 36.9; O2SAT 100
[2016-10-16] MEDS: PROMETHAZINE HCL 25 MG TAB PO PRN ×4 (04:14→17:40)
[2016-10-16] MEDS: ONDANSETRON INJ 2 MG/ML 2 ML VIAL IV PRN ×2 (05:16→21:08)
[2016-10-16 06:21] LABS: BUN/CREATININE RATIO 16.8 (10-20); CALCIUM 8.3 mg/dl (8.5-10.1); CREATININE 1.4 mg/dl (0.60-1.40); POTASSIUM 4.1 mmol/L (3.5-5.1)
[2016-10-16] MEDS: METOCLOPRAMIDE HCL 10 MG TAB PO PRN ×3 (07:16→16:38)
[2016-10-16] MEDS: PANTOprazole SOD 40 MG TAB PO SCH (08:00)
[2016-10-16] MEDS: ASPIRIN 81 MG ECTAB PO SCH (08:00)
[2016-10-16] MEDS: MAGNESIUM CHLORIDE 64MG DELAYED REL TAB PO SCH ×2 (08:00→20:30)
[2016-10-16] MEDS: VENLAFAXINE HCL XR 37.5 MG CAPXR PO SCH (08:00)
[2016-10-16] MEDS: GABAPENTIN 300 MG CAP PO SCH ×3 (08:00→20:30)
[2016-10-16] MEDS: METOPROLOL TARTRATE 25 MG TAB PO SCH ×2 (08:00→20:31)
[2016-10-16] MEDS: DEXAMETHASONE 4 MG TAB PO SCH (08:01)
[2016-10-16] MEDS: AMLODIPINE BESYLATE 5 MG TAB PO SCH (08:01)
[2016-10-16 08:04] VITALS: BP 175/98; PULSE 90; TEMP 36.8; O2SAT 99
[2016-10-16] MEDS: INSULIN ASPART 100 UNITS/ML 3 ML PEN SC SCH ×4 (08:06→20:46)
[2016-10-16] MEDS: SODIUM CHLORIDE 0.9% 1000ML 1,000 ML IV SCH ×2 (08:07→17:42)
[2016-10-16] MEDS: HEPARIN SOD 5000 UNIT/0.5 ML CARP SQ SCH ×2 (08:07→20:45)
[2016-10-16 11:23] VITALS: BP 135/80; PULSE 87; TEMP 36.9; O2SAT 97
[2016-10-16 16:30] VITALS: BP 157/93; PULSE 92; TEMP 37; O2SAT 96
--- NOTE | 2016-10-16 17:25 | Progress Note ---
Internal Med Progress Note Date of Service: Oct 16, 2016. Provider Documentation: SUBJECTIVE: walking on hallway no sign of discomfort mentions of vomiting earlier today feel better now wants diet to be advanced to solid OBJECTIVE: Vital Signs-as noted below Exam: General-no sign of distress Eyes-sclera non icteric Lungs-CTA Heart-regular S1/S2 Abdomen-soft, non tender Extremities-no lower ext edema Neuro-AAO x3, no focal deficit Lab data as noted below. ASSESSMENT & PLAN: Intractable Nausea/Vomiting patient has issues with nausea/vomiting chronically Needs adjustment with gastric pacemaker as outpatient Currently not on chemo/radiation for lung CA S/P Emend x1 Continue Zofran, Phenergan, Reglan PRN Continue PPI diet advanced plan to discharge home tomorrow if diet is tolerated IVAN resolved with IV hydration likely Prerenal from nausea/vomiting cr 2.0 >>>1.6-> 1.4 Intractable Pain Narcotic seeking behavior Fentanyl 150mcg patch, q48hrs Dilaudid 8mg q8hrs. follows with pain management Will consult pain management if necessary Non-small cell lung CA Currently not on chemo/radiation therapy Follows with DM II uncontrolled blood sugars chronic dexamethasone Lantus 20 units at night, insulin sliding scale Blood sugar levels better Continue to monitor DVT Px: Heparin SQ Code Status: FULL CODE DISPOSITION possible discharge home tomorrow Vital Signs: Date Time Temp Pulse Resp B/P (MAP) Pulse Ox O2 Delivery O2 Flow Rate FiO2 10/16/16 16:30 37.0 92 20 157/93 (114) 96 Room Air 10/16/16 15:17 Room Air 10/16/16 11:23 36.9 87 18 135/80 (98) 97 Room Air 10/16/16 08:50 Room Air 10/16/16 08:04 36.8 90 18 175/98 (123) 99 Room Air 10/16/16 01:19 36.9 93 18 148/84 (105) 100 10/16/16 00:00 Room Air 10/15/16 23:56 36.6 87 20 154/92 (112) 98 Room Air Lab Results: Results Past 24 Hours Test 10/15/16 20:29 10/16/16 05:15 10/16/16 11:36 10/16/16 16:28 Range/Units Bedside Glucose 225 127 265 70-99 mg/dl Sodium Level 137 136-145 mmol/L Potassium Level 4.1 3.5-5.1 mmol/L Chloride Level 101 98-107 mmol/L Carbon Dioxide Level 27 21-32 mmol/L Anion Gap 9.0 3-11 mmol/L Blood Urea Nitrogen 23 7-18 mg/dl Creatinine 1.40 0.60-1.40 mg/dl Est Creatinine Clear Calc Drug Dose 60.4 ml/min Estimated GFR () 66.9 Estimated GFR (Non- 57.8 BUN/Creatinine Ratio 16.8 10-20 Random Glucose 167 70-99 mg/dl Calcium Level 8.3 8.5-10.1 mg/dl
[2016-10-16] MEDS ORDERED: TROLAMINE SALICYLATE 10% CRM 255 APPLN/85 GM TUBE EXT PRN (17:30)
[2016-10-16 20:21] VITALS: BP 132/84; PULSE 98; TEMP 36.9; O2SAT 100
[2016-10-16] MEDS: INSULIN GLARGINE SOLOSTAR 100 UNITS/ML 3 ML PEN SC SCH (20:45)
[2016-10-16 23:29] VITALS: BP 160/104; PULSE 88; TEMP 37; O2SAT 93
[2016-10-17] VITALS (8 sets, daily range): BP systolic 155–169; BP diastolic 77–102; PULSE 83–100; TEMP 36.7–37.3; O2SAT 95–100
[2016-10-17] MEDS: HYDROmorphone HCL 2 MG TAB PO PRN ×4 (02:01→20:31)
[2016-10-17] MEDS: POLYETHYLENE (MIRALAX) 17 GM PACK PO PRN (02:22)
[2016-10-17] MEDS: ONDANSETRON INJ 2 MG/ML 2 ML VIAL IV PRN ×2 (03:00→15:56)
[2016-10-17] MEDS: PROMETHAZINE HCL 25 MG TAB PO PRN ×2 (04:05→20:32)
[2016-10-17] MEDS: FENTANYL 50 MCG/HR TDSY TD SCH (04:06)
[2016-10-17] MEDS: FENTANYL 100 MCG/HR TDSY TD SCH (04:06)
[2016-10-17] MEDS: SODIUM CHLORIDE 0.9% 1000ML 1,000 ML IV SCH ×2 (04:19→14:34)
[2016-10-17 07:02] LABS: CALCIUM 8.2 mg/dl (8.5-10.1); CREATININE 1.3 mg/dl (0.60-1.40); POTASSIUM 4.1 mmol/L (3.5-5.1)
[2016-10-17] MEDS: METOCLOPRAMIDE HCL 10 MG TAB PO PRN ×2 (07:26→18:27)
[2016-10-17] MEDS: CHECK FENTANYL PATCH PLACEMENT SCH ×2 (07:26→15:57)
[2016-10-17] MEDS: ASPIRIN 81 MG ECTAB PO SCH (07:55)
[2016-10-17] MEDS: DEXAMETHASONE 4 MG TAB PO SCH (07:55)
[2016-10-17] MEDS: GABAPENTIN 300 MG CAP PO SCH ×3 (07:55→20:23)
[2016-10-17] MEDS: METOPROLOL TARTRATE 25 MG TAB PO SCH ×2 (07:56→20:23)
[2016-10-17] MEDS: AMLODIPINE BESYLATE 5 MG TAB PO SCH (07:56)
[2016-10-17] MEDS: VENLAFAXINE HCL XR 37.5 MG CAPXR PO SCH (07:56)
[2016-10-17] MEDS: MAGNESIUM CHLORIDE 64MG DELAYED REL TAB PO SCH ×2 (07:56→20:24)
[2016-10-17] MEDS: PANTOprazole SOD 40 MG TAB PO SCH (07:57)
[2016-10-17] MEDS ORDERED: FENTANYL PATCH REMOVE & WASTE SCH (07:59)
[2016-10-17] MEDS: HEPARIN SOD 5000 UNIT/0.5 ML CARP SQ SCH ×2 (08:59→20:31)
[2016-10-17] MEDS: INSULIN ASPART 100 UNITS/ML 3 ML PEN SC SCH ×4 (08:59→20:30)
--- NOTE | 2016-10-17 16:24 | Progress Note ---
Internal Med Progress Note Date of Service: Oct 17, 2016. Provider Documentation: SUBJECTIVE: complains of pain from head to toe vomited after breakfast and lunch does not feel well enough to go home today OBJECTIVE: Vital Signs-as noted below Exam: General-no sign of distress Eyes-sclera non icteric Lungs-CTA Heart-regular S1/S2 Abdomen-soft, non tender Extremities-no lower ext edema Neuro-AAO x3, no focal deficit Lab data as noted below. ASSESSMENT & PLAN: Intractable Nausea/Vomiting patient has issues with nausea/vomiting chronically Needs adjustment with gastric pacemaker as outpatient Currently not on chemo/radiation for lung CA S/P Emend x1 Continue Zofran, Phenergan, Reglan PRN Continue PPI diet advanced IVAN resolved with IV hydration likely Prerenal from nausea/vomiting cr 2.0 >>>1.6-> 1.4 Intractable Pain Narcotic seeking behavior Fentanyl 150mcg patch, q48hrs Dilaudid 8mg q8hrs. follows with pain management pt will be discharged home with out pt pain regimen Non-small cell lung CA Currently not on chemo/radiation therapy Follows with DM II uncontrolled blood sugars chronic dexamethasone Lantus 20 units at night, insulin sliding scale Blood sugar levels better Continue to monitor DVT Px: Heparin SQ Code Status: FULL CODE DISPOSITION possible discharge home tomorrow 10/18/16 Vital Signs: Date Time Temp Pulse Resp B/P (MAP) Pulse Ox O2 Delivery O2 Flow Rate FiO2 10/17/16 14:40 37.3 83 18 159/77 (104) 100 10/17/16 11:21 36.7 87 18 159/97 (117) 98 10/17/16 09:45 88 155/93 (113) 10/17/16 08:00 Room Air 10/17/16 07:36 37.1 89 20 164/100 (121) 95 Room Air 10/17/16 04:30 96 156/94 (114) 10/17/16 03:28 36.9 100 20 163/102 (122) 98 Room Air 10/17/16 00:14 Room Air 10/16/16 23:29 37.0 88 20 160/104 (122) 93 Room Air 10/16/16 22:00 Room Air 10/16/16 20:21 36.9 98 20 132/84 (100) 100 Room Air 10/16/16 16:30 37.0 92 20 157/93 (114) 96 Room Air Lab Results: Results Past 24 Hours Test 10/16/16 16:28 10/16/16 20:04 10/17/16 05:50 10/17/16 07:41 Range/Units Bedside Glucose 265 254 215 70-99 mg/dl Sodium Level 138 136-145 mmol/L Potassium Level 4.1 3.5-5.1 mmol/L Chloride Level 102 98-107 mmol/L Carbon Dioxide Level 28 21-32 mmol/L Anion Gap 8.0 3-11 mmol/L Blood Urea Nitrogen 19 7-18 mg/dl Creatinine 1.30 0.60-1.40 mg/dl Est Creatinine Clear Calc Drug Dose 71.4 ml/min Estimated GFR () 73.2 Estimated GFR (Non- 63.2 BUN/Creatinine Ratio 15.0 10-20 Random Glucose 210 70-99 mg/dl Calcium Level 8.2 8.5-10.1 mg/dl Test 10/17/16 11:25 Range/Units Bedside Glucose 219 70-99 mg/dl
--- NOTE | 2016-10-17 16:25 | Discharge Instructions ---
Discharge Instructions Date of Service Oct 17, 2016. Admission Reason for Admission: Intractable Nausea And Vomiting Discharge Discharge Diagnosis / Problem: INTRACTABLE NAUSEA /VOMITING /CHRONIC PAIN SYNDROME Discharge Goals Goal(s): Improve disease control Activity Recommendations Activity Limitations: resume your previous activity . Instructions / Follow-Up Instructions / Follow-Up HOSPITAL FOLLOW UP ON 10/22/2016 @ 12:[address] Bran Burgess MD [facility] Current Hospital Diet Patient's current hospital diet: Diabetes Type 2 Diet Discharge Diet Recommended Diet: Diabetes Type 2 Diet Pending Studies Studies pending at discharge: no Laboratory Results Hemoglobin A1c Test 09/14/16 05:56 Range/Units Estimated Average Glucose 166 mg/dl Hemoglobin A1c 7.4 H 4.5-5.6 % Medical Emergencies . Who to Call and When: Medical Emergencies: If at any time you feel your situation is an emergency, please call 911 immediately. . Non-Emergent Contact Non-Emergency issues call your: Primary Care Provider . . "Provider Documentation" section prepared by Leeanne Harp. . VTE Core Measure Inpt VTE Proph given/why not?: Unfractionated heparin SQ
[2016-10-17] MEDS ORDERED: INSULIN GLARGINE SOLOSTAR 100 UNITS/ML 3 ML PEN SC SCH (21:00)
[2016-10-18 00:17] VITALS: BP 125/77; PULSE 96; TEMP 37.1; O2SAT 97
[2016-10-18] MEDS: SODIUM CHLORIDE 0.9% 1000ML 1,000 ML IV SCH (00:27)
[2016-10-18] MEDS: HYDROmorphone HCL 2 MG TAB PO PRN ×4 (00:27→15:39)
[2016-10-18] MEDS: POLYETHYLENE (MIRALAX) 17 GM PACK PO PRN (00:28)
[2016-10-18] MEDS: PROMETHAZINE HCL 25 MG TAB PO PRN ×4 (00:28→15:39)
[2016-10-18] MEDS: CHECK FENTANYL PATCH PLACEMENT SCH ×3 (00:30→15:40)
[2016-10-18 05:01] VITALS: BP 161/97; PULSE 90; TEMP 37.4; O2SAT 95
[2016-10-18 06:52] LABS: BUN/CREATININE RATIO 16.7 (10-20); CALCIUM 8.1 mg/dl (8.5-10.1); CREATININE 1.3 mg/dl (0.60-1.40); POTASSIUM 4.7 mmol/L (3.5-5.1)
[2016-10-18 07:52] VITALS: BP 170/105; PULSE 99; TEMP 37.1; O2SAT 93
[2016-10-18] MEDS: INSULIN ASPART 100 UNITS/ML 3 ML PEN SC SCH ×2 (09:01→12:22)
[2016-10-18] MEDS: VENLAFAXINE HCL XR 37.5 MG CAPXR PO SCH (09:03)
[2016-10-18] MEDS: DEXAMETHASONE 4 MG TAB PO SCH (09:03)
[2016-10-18] MEDS: ASPIRIN 81 MG ECTAB PO SCH (09:03)
[2016-10-18] MEDS: AMLODIPINE BESYLATE 5 MG TAB PO SCH (09:04)
[2016-10-18] MEDS: MAGNESIUM CHLORIDE 64MG DELAYED REL TAB PO SCH (09:04)
[2016-10-18] MEDS: METOPROLOL TARTRATE 25 MG TAB PO SCH (09:04)
[2016-10-18] MEDS: PANTOprazole SOD 40 MG TAB PO SCH (09:04)
[2016-10-18] MEDS: GABAPENTIN 300 MG CAP PO SCH ×2 (09:04→13:52)
[2016-10-18] MEDS: HEPARIN SOD 5000 UNIT/0.5 ML CARP SQ SCH (09:07)
[2016-10-18 11:26] VITALS: BP 155/88; PULSE 92; TEMP 36.8; O2SAT 97
[2016-10-18 13:53] VITALS: BP 119/73; PULSE 102; O2SAT 95
[2016-10-18 14:17] VITALS: Ht 172.7 cm; Wt 89.4 kg
[2016-10-18] MEDS ORDERED: INSDGIPEN SC (14:52)
[2016-10-18] MEDS ORDERED: NVLG SC (15:02)
--- NOTE | 2016-10-18 15:04 | Progress Note ---
Internal Med Progress Note Date of Service: Oct 18, 2016. Provider Documentation: SUBJECTIVE: still feeling nauseous, vomiting spell after each meal chronic pain symptom wants to go home today OBJECTIVE: Vital Signs-as noted below Exam: General-no sign of distress Eyes-sclera non icteric Lungs-CTA Heart-regular S1/S2 Abdomen-soft, non tender Extremities-no lower ext edema Neuro-AAO x3, no focal deficit Lab data as noted below. ASSESSMENT & PLAN: Intractable Nausea/Vomiting patient has issues with nausea/vomiting chronically Needs adjustment with gastric pacemaker as outpatient Currently not on chemo/radiation for lung CA S/P Emend x1 Continue Zofran, Phenergan, Reglan PRN Continue PPI diet advanced stable to be discharged home today IVAN resolved with IV hydration likely Prerenal from nausea/vomiting Intractable Pain Narcotic seeking behavior Fentanyl 150mcg patch, q48hrs Dilaudid 8mg q8hrs. follows with pain management pt will be discharged home with out pt pain regimen Non-small cell lung CA Currently not on chemo/radiation therapy Follows with DM II uncontrolled blood sugars chronic dexamethasone Lantus 20 units at night, insulin sliding scale Blood sugar level improved DVT Px: Heparin SQ Code Status: FULL CODE DISPOSITION discharge home today Vital Signs: Date Time Temp Pulse Resp B/P (MAP) Pulse Ox O2 Delivery O2 Flow Rate FiO2 10/18/16 13:53 102 119/73 (88) 95 Room Air 10/18/16 11:26 36.8 92 20 155/88 (110) 97 10/18/16 10:49 Room Air 10/18/16 07:52 37.1 99 18 170/105 (126) 93 10/18/16 05:01 37.4 90 20 161/97 (118) 95 2.0 10/18/16 00:27 Room Air 10/18/16 00:17 37.1 96 20 125/77 (93) 97 Room Air 10/17/16 20:17 36.9 94 20 169/95 (119) 97 Room Air 10/17/16 16:12 100 Room Air Lab Results: Results Past 24 Hours Test 10/17/16 16:42 10/17/16 20:15 10/18/16 06:07 10/18/16 07:18 Range/Units Bedside Glucose 322 397 128 70-99 mg/dl Sodium Level 139 136-145 mmol/L Potassium Level 4.7 3.5-5.1 mmol/L Chloride Level 105 98-107 mmol/L Carbon Dioxide Level 28 21-32 mmol/L Anion Gap 6.0 3-11 mmol/L Blood Urea Nitrogen 22 7-18 mg/dl Creatinine 1.30 0.60-1.40 mg/dl Est Creatinine Clear Calc Drug Dose 73.0 ml/min Estimated GFR () 73.2 Estimated GFR (Non- 63.2 BUN/Creatinine Ratio 16.7 10-20 Random Glucose 130 70-99 mg/dl Calcium Level 8.1 8.5-10.1 mg/dl Test 10/18/16 11:17 10/18/16 14:18 Range/Units Bedside Glucose 208 86 70-99 mg/dl
--- NOTE | 2016-10-18 15:06 | Discharge Summary ---
Discharge Summary Date of Service Oct 18, 2016. Discharge Summary Admission Date: Oct 15, 2016 at 00:25 Discharge Date: Oct 18, 2016 Discharge Disposition: Home Principal Diagnosis: INTRACTABLE NAUSEA /VOMITING /CHRONIC PAIN SYNDROME Procedures: CHEST ONE VIEW PORTABLE CLINICAL HISTORY: Sepsis COMPARISON STUDY: 09/10/2016 FINDINGS: The cardiac and mediastinal contours are normal. There is no evidence of focal pulmonary consolidation. There is no evidence of failure. No pleural effusions are visualized.[ There is a stable area of linear scar/atelectasis within the left superhilar region. There is mild superior left hilar retraction, unchanged from the prior study, possibly related to prior treatment. IMPRESSION: No active disease in the chest. Medication Reconciliation New Medications: Insulin Glargine (Lantus Solostar) 100 Unit/Ml Inj 25 UNIT SC HS for 30 Days, #5 PEN 3 Refills Changed Medications: Insulin Aspart (Novolog) 100 Units/Ml Inj 5 UNITS SC TIDM for 30 Days, #5 PEN 5 Refills (Changed from: Refills: ) SLIDING SCALE BEFORE MEALS AND AT BEDTIME Continued Medications: Acetaminophen (Tylenol) 325 Mg Tab 650 MG PO TID PRN for Pain Amlodipine (Norvasc) 10 Mg Tab 10 MG PO DAILY, TAB Aspirin (Aspirin Ec) 81 Mg Tab 81 MG PO QAM Dexamethasone (Dexamethasone) 4 Mg Tab 4 MG PO UD YOLA ON DAY OF AND DAY AFTER CHEMO. Epinephrine (Epipen) 0.3 Mg/0.3 Ml Inj 0.3 MG IM UD PRN for ALLERGIC REACTION Fentanyl (Fentanyl) 50 Mcg Tdsy 50 MCG TOP Q2D Fentanyl (Duragesic) 100 Mcg/Hr Dis 100 MCG TOP Q2D Gabapentin (Neurontin) 300 Mg Cap 600 MG PO TID, CAP Hydromorphone Hcl (Dilaudid) 2 Mg Tab 8 MG PO Q8 PRN for Pain, TAB Insulin Glargine (Lantus) 100 Unit/Ml Inj 25 UNITS SC QPM, VIAL Magnesium Chloride (Slow-Mag Tab) 64 Mg Tabcr 64 MG PO BID, TAB Metoclopramide Hcl (Reglan) 10 Mg Tab 10 MG PO ACHS PRN for Nausea, TAB Metoprolol Tartrate (Lopressor) (Lopressor) 25 Mg Tab 25 MG PO BID, TAB Multiple Vitamin (Multivitamins) 1 Cap Cap 1 CAP PO QAM Ondansetron (Ondansetron HCl) 4 Mg Tab 8 MG PO Q8 PRN for Nausea Pantoprazole (Protonix) 40 Mg Tab 40 MG PO DAILY Promethazine Hcl (Phenergan) 12.5 Mg Tab 12.5 MG PO Q4H PRN for Nausea or Vomiting Promethazine Hcl (Phenergan Suppository) 25 Mg Supp 25 MG DE Q4H PRN for Nausea or Vomiting Tapentadol Hcl (Nucynta Er) 150 Mg Tab 150 MG PO Q6 PRN for Pain Venlafaxine HCl (Venlafaxine HCl ER) 37.5 Mg Capcr 37.5 MG PO QAM for 30 Days, #30 TAB 0 Refills Admission Information HPI (per Admitting provider): This is a 51 year old male with PMH of non-small cell lung CA of the left upper lung, uncontrolled, insulin-dependent DM2, chronic pain is here due to intractable nausea/vomiting - states that he can't keep anything down; went to [facility], and was discharged after getting fluids - he continues to have nausea/vomiting; was to have gastric pacemaker adjusted; but states that due to a potential pain management procedure, that this cannot be done. States that Emend usually works for this. Worried about his pain and that it is not controlled. Denies chest pain/shortness of breath. Physical Exam (per Admitting): General Appearance: + mild distress (secondary to nausea) Head: normocephalic, atraumatic Eyes: normal inspection ENT: hearing grossly normal Neck: supple Respiratory/Chest: lungs clear, normal breath sounds, no respiratory distress, no accessory muscle use Cardiovascular: regular rate, rhythm, no edema, no murmur Abdomen/GI: normal bowel sounds, soft, + tenderness (mildly tender diffusely ) Extremities/Musculoskelatal: normal capillary refill, no pedal edema Neurologic/Psych: no motor/sensory deficits, alert, normal mood/affect Skin: normal color Hospital Course Intractable Nausea/Vomiting patient has issues with nausea/vomiting chronically Needs adjustment with gastric pacemaker as outpatient Currently not on chemo/radiation for lung CA S/P Emend x1 Continue Zofran, Phenergan, Reglan PRN Continue PPI diet advanced stable to be discharged home today VIAN resolved with IV hydration likely Prerenal from nausea/vomiting Intractable Pain Narcotic seeking behavior Fentanyl 150mcg patch, q48hrs Dilaudid 8mg q8hrs. follows with pain management pt will be discharged home with out pt pain regimen Non-small cell lung CA Currently not on chemo/radiation therapy Follows with DM II uncontrolled blood sugars chronic dexamethasone Lantus 20 units at night, insulin sliding scale Blood sugar level improved DVT Px: Heparin SQ Code Status: FULL CODE DISPOSITION discharge home today Discharge Instructions Discharge Instructions Date of Service Oct 17, 2016. Admission Reason for Admission: Intractable Nausea And Vomiting Discharge Discharge Diagnosis / Problem: INTRACTABLE NAUSEA /VOMITING /CHRONIC PAIN SYNDROME Discharge Goals Goal(s): Improve disease control Activity Recommendations Activity Limitations: resume your previous activity . Instructions / Follow-Up Instructions / Follow-Up HOSPITAL FOLLOW UP ON 10/22/2016 @ 12:[address] Bran Burgess MD [facility] Current Hospital Diet Patient's current hospital diet: Diabetes Type 2 Diet Discharge Diet Recommended Diet: Diabetes Type 2 Diet Pending Studies Studies pending at discharge: no Laboratory Results Hemoglobin A1c Test 09/14/16 05:56 Range/Units Estimated Average Glucose 166 mg/dl Hemoglobin A1c 7.4 H 4.5-5.6 % Medical Emergencies . Who to Call and When: Medical Emergencies: If at any time you feel your situation is an emergency, please call 911 immediately. . Non-Emergent Contact Non-Emergency issues call your: Primary Care Provider . . "Provider Documentation" section prepared by Leeanne Harp. . VTE Core Measure Inpt VTE Proph given/why not?: Unfractionated heparin SQ Additional Copies To Bran Burgess M.D.
[2016-10-18 16:08] VITALS: BP 119/73; PULSE 102; TEMP 36.8; O2SAT 95
[2016-12-19] MEDS ORDERED: FOLI1TAB7 PO (15:00)
[2016-12-19] MEDS ORDERED: FENT75DI2 EX (15:00)
[2016-12-19] MEDS ORDERED: LEVE750T PO (15:00)
[2017-01-14] MEDS ORDERED: VNTHFA/IN INH (09:25)
[2017-01-14] MEDS ORDERED: AMLO-114 PO (09:25)
[2017-01-14] MEDS ORDERED: NRN/600 PO (09:25)
[2017-01-31] MEDS ORDERED: VANC1INJ IV (16:05)
[2017-01-31] MEDS ORDERED: INSDGI SC (16:07)
[2017-03-19] MEDS ORDERED: PEGSOL13 (10:26)
[2017-03-19] MEDS ORDERED: HYDR2TAB48 PO (10:26)
[2017-03-19] MEDS ORDERED: CEFA1INJ IV (10:26)
[2017-03-19] MEDS ORDERED: FERR1TAB13 PO (10:26)
[2017-03-19] MEDS ORDERED: PRLSR20 PO (10:26)
[2017-03-19] MEDS ORDERED: DRGTP100 (10:27)
[2017-03-19] MEDS ORDERED: LISI-725 PO (10:27)
[2017-03-19] MEDS ORDERED: HYZ/50125 PO (10:27)
== END 2016-10-18 17:45 | disposition home health service (06) ==
LOC: C.EDB 20:46 → C.MED 10-15 00:25 → ENRESERV 10-15 01:00 → C.4E 10-16 01:07
PROVIDERS: ADMIT Family Medicine; ATTEND Hospitalist
DX: R11.2 Nausea with vomiting, unspecified (principal); E11.65 Type 2 diabetes mellitus with hyperglycemia; N17.9 Acute kidney failure, unspecified; E11.42 Type 2 diabetes mellitus with diabetic polyneuropathy; E11.43 Type 2 diabetes mellitus with diabetic autonomic (poly)neuropathy; K31.84 Gastroparesis; I10 Essential (primary) hypertension; D70.9 Neutropenia, unspecified; I95.1 Orthostatic hypotension; G89.4 Chronic pain syndrome; Z85.118 Personal history of other malignant neoplasm of bronchus and lung; Z87.891 Personal history of nicotine dependence; Z79.82 Long term (current) use of aspirin; Z79.4 Long term (current) use of insulin; Z79.899 Other long term (current) drug therapy

== ENCOUNTER 2016-10-23 22:26 | Emergency (ER) | payer OTHER ==
[~2016-10-23] VITALS: Ht 172.7 cm; Wt 77.0 kg
[~2016-10-23 22:26] MED LIST changes: -ACET-1256 PO; +ACET-1311 PO; +DEXA1TAB16 PO; +INSDGIPEN SC; -INSPMPHMLG SC; +NVLG SC; +PANT40TA PO; +PROM25SU28 PR; -PRT40 PO; +TAPE1TAB11 PO
[2016-10-23 22:33] VITALS: TEMP 36.8; Ht 172.7 cm; Wt 77.0 kg
[2016-10-23] MEDS ORDERED: KETOROLAC TROMETHAMINE 30 MG/ML VIAL IV STA (22:52)
[2016-10-23] MEDS ORDERED: DiphenhydrAMINE HCL 50 MG/ML VIAL IV STA (22:52)
[2016-10-23] MEDS ORDERED: SODIUM CHLORIDE 0.9% 1000ML 1,000 ML IV STA (22:52)
[2016-10-23] MEDS ORDERED: PROCHLORPERAZINE 5 MG/ML 2 ML VIAL IV STA (22:52)
[2016-10-23] MEDS ORDERED: HYDROmorphone INJ 2 MG/ML SYR/VIAL IV STA (22:58)
[2016-10-23] MEDS ORDERED: FENTANYL CITRATE INJ 50 MCG/1 ML 2 ML VIAL IV PRN (23:00)
[2016-10-23] MEDS ORDERED: NVLG SC (23:08)
[2016-10-23] MEDS ORDERED: INSDGIPEN SC (23:08)
[2016-10-23] MEDS ORDERED: VENL1CAP92 PO (23:08)
[2016-10-23 23:14] LABS: BASO % 0.3 %; BASO ABS # 0.02 K/uL (0-0.2); COMPLETE YES; HEMATOCRIT 32.7 % (42-52); IG% 0.2 %; LYMPH % 19.2 %; LYMPH ABS # 1.18 K/uL (1.2-3.4); MEAN CELL VOLUME 86.3 fL (80-100); MEAN CORPUSCULAR HEMOGLOBIN 29.6 pg (25-34); MEAN CORPUSCULAR HGB CONC 34.3 g/dl (32-36); MEAN PLATELET VOLUME 8.9 fL (7.4-10.4); NEUT % 70.3 %; PLATELET COUNT 190 K/uL (130-400); RED BLOOD COUNT 3.79 M/uL (4.7-6.1); WHITE BLOOD COUNT 6.13 K/uL (4.8-10.8)
[2016-10-23 23:36] LABS: BUN/CREATININE RATIO 17.6 (10-20); CALCIUM 8.8 mg/dl (8.5-10.1); CREATININE 1.8 mg/dl (0.60-1.40); POTASSIUM 4.4 mmol/L (3.5-5.1)
[2016-10-23 23:46] LABS: BETA-HYDROXYBUTYRATE 7.58 mg/dL (0.2-2.81)
[2016-10-24] MEDS ORDERED: HYDROmorphone INJ 2 MG/ML SYR/VIAL IV STA (01:03)
--- NOTE | 2016-10-24 01:06 | EMERGENCY ROOM VISIT NOTE ---
History Report prepared by Nedra: Anastasia Joya Under the Supervision of: Dr. Jack Cavazos D.O. First contact with patient: 22:37 Chief Complaint: VOMITING Stated Complaint: VOMITING,ABD PAIN Nursing Triage Summary: Patient has nausea, vomiting and pain that began last saturday and has gotten worse since then. PAtient was in hospital recently for same symptoms, patient had chemo a few months back and these episodes started occuring. Patient was seen by home health today and was told to come to ED [facility]. History of Present Illness The patient is a 51 year old male who presents to the Emergency Room with complaints of persistent vomiting starting 4 days ago. The patient was diagnosed with lung cancer 5 months ago. He had a lobectomy and was started on chemo. He had to stop chemo after 3 out of 4 sessions because he developed nausea, vomiting, and generalized pain. Since then he has been experiencing these symptoms intermittently. It has worsened through the last couple of days. He last vomited several minutes ago. He reports feeling weak. He has been trying to drink water, but he feels thirsty and dehydrated. He has neuropathy from diabetes. He has a gastric pacemaker in place. Source of History: patient Onset: 4 days ago Position: other (global) Quality: other (vomiting) Timing: other (persistent) Associated Symptoms: + nausea, + weakness Note: Pt has generalized pain, feels thirsty and dehydrated. Review of Systems See HPI for pertinent positives & negatives. A total of 10 systems reviewed and were otherwise negative. Past Medical & Surgical Medical Problems: (1) Confusion (2) Diabetes mellitus, type II (3) Diabetic polyneuropathy (4) Facial cellulitis (5) Gastroparesis (6) HTN (hypertension) (7) Intractable nausea and vomiting (8) Lung cancer (9) Nausea and vomiting (10) Neutropenia (11) Orthostatic hypotension Surgical Problems: (1) H/O colonoscopy (2) H/O esophagogastroduodenoscopy (3) History of cholecystectomy (4) History of tonsillectomy and adenoidectomy (5) Hx of total knee arthroplasty (6) S/P lobectomy of lung Family History Cancer Diabetes mellitus Hypertension Social History Smoking Status: Never Smoker Alcohol Use: none Drug Use: none Marital Status: Housing Status: lives with family Occupation Status: disabled Current/Historical Medications Scheduled Amlodipine (Norvasc), 10 MG PO DAILY Aspirin (Aspirin Ec), 81 MG PO QAM Dexamethasone (Dexamethasone), 4 MG PO UD Fentanyl (Fentanyl), 50 MCG TOP Q2D Fentanyl (Duragesic), 100 MCG TOP Q2D Gabapentin (Neurontin), 600 MG PO TID Insulin Aspart (Novolog), 5 UNITS SC ACHS Insulin Glargine (Lantus), 25 UNITS SC QPM Insulin Glargine (Lantus Solostar), 25 UNITS SC HS Magnesium Chloride (Slow-Mag Tab), 64 MG PO BID Metoprolol Tartrate (Lopressor) (Lopressor), 25 MG PO BID Multiple Vitamin (Multivitamins), 1 CAP PO QAM Pantoprazole (Protonix), 40 MG PO DAILY Venlafaxine Hcl (Effexor Xr), 37.5 MG PO QAM Scheduled PRN Acetaminophen (Tylenol), 650 MG PO TID PRN for Pain Epinephrine (Epipen), 0.3 MG IM UD PRN for ALLERGIC REACTION Hydromorphone Hcl (Dilaudid), 8 MG PO Q8 PRN for Pain Metoclopramide Hcl (Reglan), 10 MG PO ACHS PRN for Nausea Ondansetron (Ondansetron HCl), 8 MG PO Q8 PRN for Nausea Promethazine Hcl (Phenergan), 12.5 MG PO Q4H PRN for Nausea or Vomiting Promethazine Hcl (Phenergan Suppository), 25 MG GA Q4H PRN for Nausea or Vomiting Tapentadol Hcl (Nucynta Er), 150 MG PO Q6 PRN for Pain Allergies Coded Allergies: BEE STING (Verified Allergy, Mild, SWELLING AT SITE, SOB, 10/23/16) Penicillins (Verified Allergy, Unknown, "SINCE ", 10/23/16) Physical Exam Vital Signs Date Time Temp Pulse Resp B/P (MAP) Pulse Ox O2 Delivery O2 Flow Rate FiO2 10/23/16 22:33 36.8 102 19 149/102 97 Room Air Physical Exam CONSTITUTIONAL/VITAL SIGNS: Reviewed / noted above. GENERAL: Non-toxic in appearance. INTEGUMENTARY: Warm, dry, and [place]. HEAD: Normocephalic. EYES: without scleral icterus or trauma. ENT/OROPHARYNX: clear and moist. LYMPHADENOPATHY/NECK: Is supple without lymphadenopathy or meningismus. RESPIRATORY: Lungs clear and equal. CARDIOVASCULAR: Regular rate and rhythm. GI/ABDOMEN: Soft and nontender. No organomegaly or pulsatile mass. No rebound or guarding. Normal bowel sounds. EXTREMITIES: Warm and well perfused. BACK: No CVA tenderness. NEUROLOGICAL: Intact without focal deficits. PSYCHIATRIC: normal affect. MUSCULOSKELETAL: Normally developed with good muscle tone. Medical Decision & Procedures Laboratory Results 10/23/16 23:01 Red Blood Count 3.79, Mean Corpuscular Volume 86.3, Mean Corpuscular Hemoglobin 29.6, Mean Corpuscular Hemoglobin Concent 34.3, Mean Platelet Volume 8.9, Neutrophils (%) (Auto) 70.3, Lymphocytes (%) (Auto) 19.2, Monocytes (%) (Auto) 8.0, Eosinophils (%) (Auto) 2.0, Basophils (%) (Auto) 0.3, Neutrophils # (Auto) 4.31, Lymphocytes # (Auto) 1.18, Monocytes # (Auto) 0.49, Eosinophils # (Auto) 0.12, Basophils # (Auto) 0.02 10/23/16 23:01 Test 10/23/16 23:01 White Blood Count 6.13 K/uL (4.8-10.8) Red Blood Count 3.79 M/uL (4.7-6.1) Hemoglobin 11.2 g/dL (14.0-18.0) Hematocrit 32.7 % (42-52) Mean Corpuscular Volume 86.3 fL (80-100) Mean Corpuscular Hemoglobin 29.6 pg (25-34) Mean Corpuscular Hemoglobin Concent 34.3 g/dl (32-36) Platelet Count 190 K/uL (130-400) Mean Platelet Volume 8.9 fL (7.4-10.4) Neutrophils (%) (Auto) 70.3 % Lymphocytes (%) (Auto) 19.2 % Monocytes (%) (Auto) 8.0 % Eosinophils (%) (Auto) 2.0 % Basophils (%) (Auto) 0.3 % Neutrophils # (Auto) 4.31 K/uL (1.4-6.5) Lymphocytes # (Auto) 1.18 K/uL (1.2-3.4) Monocytes # (Auto) 0.49 K/uL (0.11-0.59) Eosinophils # (Auto) 0.12 K/uL (0-0.5) Basophils # (Auto) 0.02 K/uL (0-0.2) RDW Standard Deviation 45.9 fL (36.4-46.3) RDW Coefficient of Variation 14.5 % (11.5-14.5) Immature Granulocyte % (Auto) 0.2 % Immature Granulocyte # (Auto) 0.01 K/uL (0.00-0.02) Anion Gap 10.0 mmol/L (3-11) Est Creatinine Clear Calc Drug Dose 47.0 ml/min Estimated GFR () 49.4 Estimated GFR (Non- 42.6 BUN/Creatinine Ratio 17.6 (10-20) Calcium Level 8.8 mg/dl (8.5-10.1) Total Bilirubin 0.6 mg/dl (0.2-1) Direct Bilirubin 0.1 mg/dl (0-0.2) Aspartate Amino Transf (AST/SGOT) 14 U/L (15-37) Alanine Aminotransferase (ALT/SGPT) 22 U/L (12-78) Alkaline Phosphatase 110 U/L (45-117) Total Protein 8.1 gm/dl (6.4-8.2) Albumin 3.6 gm/dl (3.4-5.0) Lipase 43 U/L (73-393) Beta-Hydroxybutyric Acid 7.58 mg/dL (0.2-2.81) Laboratory results as stated above per my review. Medications Administered Medications (Trade) Dose Ordered Sig/Cal Route Start Time Stop Time Status Last Admin Dose Admin Sodium Chloride 1,000 ml @ 999 mls/hr Q1H1M STAT IV 10/23/16 22:52 10/23/16 23:52 DC 10/23/16 22:52 999 MLS/HR Ketorolac Tromethamine (Toradol Inj) 30 mg NOW STAT IV 10/23/16 22:52 10/23/16 22:55 DC 10/23/16 23:12 30 MG Prochlorperazine Edisylate (Compazine Inj) 10 mg NOW STAT IV 10/23/16 22:52 10/23/16 22:55 DC 10/23/16 23:11 10 MG Diphenhydramine HCl (Benadryl Inj) 50 mg NOW STAT IV 10/23/16 22:52 10/23/16 22:55 DC 10/23/16 23:11 50 MG Hydromorphone HCl (Dilaudid Inj) 2 mg NOW STAT IV 10/23/16 22:58 10/23/16 22:59 DC 10/23/16 23:12 2 MG ED Course 2244: Previous medical records were reviewed. The patient was evaluated in room B3B. A complete history and physical examination was performed. 2252: Benadryl Inj 50 mg IV, Compazine Inj 10 mg IV, Toradol Inj 30 mg IV, NSS 1000 ml @ 999 mls/hr IV. 2258: Dilaudid Inj 2 mg IV. 2300: Fentanyl Citrate 100 mcg IV. 0103: Dilaudid Inj 2 mg IV. 0115: On reevaluation, the patient is resting comfortably. I discussed the results and findings with the patient. He verbalized agreement of the treatment plan. He was discharged home. Medical Decision Differential diagnosis: Etiologies such as gastroenteritis, food borne illness, infections, appendicitis , diverticulitis, inflammatory bowel disease, obstruction, GI bleed, biliary pathology, as well as others were entertained. Medication Reconciliation: I attest that I have personally reviewed the patient' s current medication list. Patient was found to have a slightly elevated blood pressure due to circumstances. I do not believe that the patient requires hypertension monitoring. This is a 51-year-old male who presents to the ED with a chief complaint of vomiting for the past 4 days. He states that it has been especially bad over the past 2 days. He is unable to take his pain medication. He is chronically on Dilaudid. The patient's vital signs are stable. He was slightly hypertensive. This is likely related to his chronic pain. The patient's physical exam did not reveal any obvious abnormalities. His CBC is unremarkable. The BUN is 32 and creatinine is 1.8. This is above his baseline. His glucose was slightly elevated at 313. He does use insulin for his diabetes. The patient was hydrated with IV fluids 1 L. He was given IV Dilaudid, IV Compazine, IV Benadryl and IV fentanyl. His symptoms did improve. He was felt to be stable for discharge and outpatient follow-up. He is chronically on numerous medications for pain as well as nausea. Impression Primary Impression: Vomiting Additional Impressions: Dehydration Chronic pain Gastroparesis Scribe Attestation The scribe's documentation has been prepared under my direction and personally reviewed by me in its entirety. I confirm that the note above accurately reflects all work, treatment, procedures, and medical decision making performed by me. Departure Information Dispostion Home / Self-Care Referrals Bran Burgess M.D. (PCP) Patient Instructions My [facility] Additional Instructions Follow-up with your doctor for further care and evaluation in 1-2 days. Return to the emergency department for worsening or new symptoms or any concerns. You have been examined and treated today on an emergency basis only. This is not a substitute for, or an effort to provide, complete comprehensive medical care. It is impossible to recognize and treat all injuries or illnesses in a single emergency department visit. It is therefore important that you follow up closely with your doctor. Call as soon as possible for an appointment. Problem Qualifiers
[2016-10-24 01:18] VITALS: BP 156/104; PULSE 91; O2SAT 97
[2016-12-19] MEDS ORDERED: LEVE750T PO (15:00)
[2016-12-19] MEDS ORDERED: FOLI1TAB7 PO (15:00)
[2016-12-19] MEDS ORDERED: FENT75DI2 EX (15:00)
[2017-01-14] MEDS ORDERED: NRN/600 PO (09:25)
[2017-01-14] MEDS ORDERED: VNTHFA/IN INH (09:25)
[2017-01-14] MEDS ORDERED: AMLO-114 PO (09:25)
[2017-03-19] MEDS ORDERED: PRLSR20 PO (10:26)
[2017-03-19] MEDS ORDERED: FERR1TAB13 PO (10:26)
[2017-03-19] MEDS ORDERED: HYDR2TAB48 PO (10:26)
[2017-03-19] MEDS ORDERED: CEFA1INJ IV (10:26)
[2017-03-19] MEDS ORDERED: PEGSOL13 (10:26)
[2017-03-19] MEDS ORDERED: HYZ/50125 PO (10:27)
[2017-03-19] MEDS ORDERED: LISI-725 PO (10:27)
[2017-03-19] MEDS ORDERED: DRGTP100 (10:27)
== END 2016-10-24 01:24 | disposition home or self-care (01) ==
LOC: C.EDB 22:27
DX: R11.10 Vomiting, unspecified (principal); E86.0 Dehydration; K31.84 Gastroparesis; G89.29 Other chronic pain; E11.42 Type 2 diabetes mellitus with diabetic polyneuropathy; Z85.118 Personal history of other malignant neoplasm of bronchus and lung; Z86.19 Personal history of other infectious and parasitic diseases; Z90.2 Acquired absence of lung [part of]; Z98.890 Other specified postprocedural states; Z79.82 Long term (current) use of aspirin; Z79.4 Long term (current) use of insulin; Z79.899 Other long term (current) drug therapy; Z88.0 Allergy status to penicillin; Z91.030 Bee allergy status; Z80.9 Family history of malignant neoplasm, unspecified; Z83.3 Family history of diabetes mellitus; Z82.49 Family history of ischemic heart disease and other diseases of the circulatory system

== ENCOUNTER 2016-12-04 06:24 | Day surgery (SDC) | payer OTHER ==
--- NOTE | 2016-11-23 09:13 | History and Physical ---
History & Physical Date of Service Nov 23, 2016. History & Physical Plan of care discussed with Dr. Hernandez CHIEF COMPLAINT: Intractable pain secondary to lung cancer with metastasis and diabetic neuropathy HISTORY OF PRESENT ILLNESS: Mr. Hamilton is a 51 year old white male that is known to the [facility] with stage 3 lung cancer, diabetic neuropathy, and chronic opioid dependency. Patient reports a burning and stabbing pain predominantly in the bilateral forearms to the fingers and in the legs. He denies any true radicular symptoms. He does also have a history of Crohns disease along with intractable nausea and vomiting and typically experiences pain in the epigastric region. Patient did previously have an intrathecal pump implanted which contained Clonidine, Hydromorphone, Bupivacaine , and Ziconotide. The intrathecal pump did provide pain relief but when he had the pump replaced, the catheter became infected and the whole system was removed. He has been on a Fentanyl patch and oral narcotics which are not controlling his pain as well. There is intermittent nausea and vomiting. Patient denies any extremity weakness or constitutional complaints. PAST MEDICAL HISTORY: 1. Orthostatic hypotension 2. Diabetes mellitus, uncontrolled 3. Diabetic polyneuropathy 4. Gastroparesis 5. Stage III lung cancer 6. Hypertension 7. Gastroesophageal reflux disease PAST SURGICAL HISTORY: 1. Cholecystectomy 2. Tonsillectomy and adenoidectomy 3. Total knee arthroplasty 4. History of lung lobectomy SOCIAL HISTORY: Patient is . He denies any tobacco, alcohol, or illicit substance abuse. WORK HISTORY: Disabled ALLERGIES: Amoxicillin MEDICATIONS: 1. Tylenol 650 mg 3 times daily 2. Amlodipine 10 mg daily 3. Aspirin 81 mg daily 4. Dexamethasone 4 mg tab daily 5. EpiPen as needed 6. Fentanyl patch 150 g/hour 7. Gabapentin 600 mg 3 times daily 8. Hydromorphone 4 mg every 4 hours as needed 9. NovoLog 5 units before each meal 10. Lantus 25 units at bedtime 11. Magnesium chloride 64 mg twice daily 12. Reglan 10 mg prior to meal 13. Metoprolol tartrate 25 mg twice daily 14. Multivitamin daily 15. Zofran 8 mg every 8 hours as needed 16. Protonix 40 mg daily 17. Phenergan 12.5 mg every 4 hours as needed 18. Effexor 37.5 mg daily REVIEW OF SYSTEMS: Denies any constitutional, cardiac, pulmonary, neurological, GI, , extremity, endocrine, neuro, ENT, dermatological, or musculoskeletal complaints other than stated in HPI PHYSICAL EXAMINATION: VITAL SIGNS: Per admission GENERAL: Mr. Hamilton is a 51 year old white male that appears older than his stated age. Speech and cognition is intact. Patient does not appear in acute distress. HEAD: Normocephalic; atraumatic. EYES: Pupils are round, equal, and reactive to light; EOM intact. ENT: No external ear discharge or lesions. No rhinorrhea or epistaxis. + dry buccal mucosa. CARDIO: Regular rate and rhythm. CHEST: Regular chest respiration and excursion. ABDOMEN: Active bowel sounds throughout; mild tenderness along the epigastric region. No peritoneal signs. No CVA tenderness bilaterally. EXTREMITIES: Uses all extremities appropriately. Scattered paresthesias along all of the extremities in a nondermatomal pattern. BACK: Full ROM. No midline or facet tenderness. No SI joint tenderness. NEURO: CN II-XII grossly intact with no focal deficits noted. AAO x 3. SKIN: No lesions, erythema, or rashes noted. ASSESSMENT: Intractable pain secondary to lung cancer with metastasis and diabetic neuropathy TREATMENT: Mr. Hamilton has previously had an intrathecal pump implanted which did provide adequate pain relief. When the pump was replaced, he developed an infection of the catheter so the system was removed and the patient was placed on oral narcotics. Patients pain is not well controlled with the current regimen of Fentanyl patch 150mcg/hr and Dilaudid 4mg x 4 hours PRN. It is recommended that the patient undergo an intrathecal hydromorphone single dose trial. Risks and benefits were reviewed with the patient. Procedure was explained and the patient understands. He would like to pursue the procedure. Should the patient report adequate relief with the intrathecal hydromorphone trial, then we would plan to re-implant the patient with an intrathecal pump.
[~2016-12-04] VITALS: Ht 172.7 cm; Wt 79.0 kg
[2016-12-04] VITALS (11 sets, daily range): BP systolic 95–200; BP diastolic 56–127; PULSE 84–94; TEMP 36.5–37.1; O2SAT 97–100; Ht 172.7 cm; Wt 79.0 kg
[~2016-12-04 06:24] MED LIST changes: -EFFSR375 PO; +HYDROMORPHONE HCL IT SCH; +VENL1CAP92 PO
[2016-12-04 07:55] LABS: PLATELET COUNT 150 K/uL (130-400)
[2016-12-04] MEDS ORDERED: HYDROMORPHONE HCL IT SCH (08:00)
--- NOTE | 2016-12-04 10:24 | Pain Clinic Procedure Note ---
Pain Management Procedure Note Procedure Date Dec 04, 2016. Procedure Description Procedure: Intrathecal opioid trial Procedure Time Out: side/site verified, patient ID confirmed, correct procedure Consent Obtained: written Performed By: Dr. Hope Indications: diagnostic Contraindications: none Pre Procedure Vital Signs Date Time Temp Pulse Resp B/P (MAP) Pulse Ox O2 Delivery O2 Flow Rate FiO2 12/04/16 07:09 37.1 94 24 200/127 (151) 99 Room Air ASA Class: 4 Description: INTRATHECAL OPIOID TRIAL FOR INTRATHECAL PUMP Diagnosis: Diabetic polyneuropathy. Lung cancer with metastatic disease. Chronic abdominal pain and gastroparesis. Level injected: Approximately L2/L3. Surgeon: Dr. Hope Complications: None. Medications injected: Preservative free hydromorphone 0.25 mg. Prior to starting, the Patients diagnosis and the procedure were reviewed with the patient in detail. Possible risks, complications and alternative therapies were also reviewed. Patients questions were answered. Informed consent was obtained. Allergies and medication list was reviewed. The patient was placed in sitting position on the table. Immediately prior to starting the procedure, a time out was conducted with the staff and the patient where the patient was identified, proposed procedure was verified, consent was reviewed and the proper site for the planned procedure was identified. Lumbosacral spine area was prepped with DuraPrep and Betadine solution. Sterile drapes were applied. Using skeletal landmarks, skin and soft tissue over the L3/L4 interlaminar notch was infiltrated with 1 mL of 1% Xylocaine using a 25 gauge needle. Midline approach was utilized. A 24 gauge, 3.5 inch Pjunk spinal needle was then inserted through the anesthetized area and advanced under fluoroscopic guidance through the intraspinous ligaments. C-arm was then turned to a true lateral view and the needle was advanced through the ligamentum flavum into the intrathecal. Upon entering the intrathecal space the patient did not experience pain or paresthesia. Bevel of the needle was directed in the cephalad direction. Next, 0.25 mg hydromorphone in 0.5 ml preservative free saline was injected via the the needle gradually. Patient did not experience any pain, paresthesia or discomfort throughout the injection. Needle was withdrawn. Hemostasis was noted. Sterile dressing was applied. Patient was then taken to the recovery room. Complications: none Patient Tolerated Procedure: well Post-procedure Vital Signs: reviewed and stable Discharge Instructions: reviewed & understood
--- NOTE | 2016-12-04 13:49 | Discharge Instructions ---
Discharge Instructions Date of Service Dec 04, 2016. Visit Reason for Visit: Lung Ca With [place]; Malignant Neoplasm Of Discharge Discharge Diagnosis / Problem: Diabetic neuropathy, lung cancer Discharge Goals Goal(s): Decrease discomfort Medications Stopped Medications Name(s): None Activity Recommendations Activity Recommendations: No Limitations Lifting Limitations: none Exercise/Sports Limitations: none Shower/Bathe: no limitations Driving or Machine Use: no limitations Anesthesia . Post Anesthesia Instructions: If you have had General Anesthesia or IV Sedation: * Do not drive today. * Resume driving when surgeon permits. * Do not make important decisions or sign legal documents today. * Call surgeon for: * Temperature elevations greater than 101 degrees F. * Uncontrollable pain. * Excessive bleeding. * Persistent nausea and vomiting. * Medication intolerance (nausea, vomiting or rash). * For nausea and vomiting use only clear liquids such as: tea, soda, bouillon until nausea subsides, then gradually increase diet as tolerated. * If you have any concerns or questions, call your surgeon's office. If physician is unavailable and it is an emergency, call 911 or go to the nearest emergency room. . Instructions Instructions / Follow-Up . * Change dressings daily. Apply sterile dry gauze. * Call [facility] [phone] or go to the nearest emergency room if he experience high fevers, new back pain, new neurological symptoms such as numbness or weakness in the lower extremity or new bowel bladder incontinence. Also of call if he experience a headache that is positional. * Wear abdominal binder. * No showers for 3 days. * Resume normal activity. No repetitive bending, twisting or reaching overhead for 2 weeks. Do not lift more than 5 pounds for 2 weeks. . Follow-Up Follow-Up: routine office visit in 1/2 weeks Diet Recommendations Home Diet: resume previous diet Procedures Procedures Performed: Intrathecal dilaudid Pending Studies Studies pending at discharge: no Medical Emergencies . Who to Call and When: Medical Emergencies: If at any time you feel your situation is an emergency, please call 911 immediately. . Non-Emergent Contact Non-Emergency issues call your: Primary Care Provider Call Non-Emergent contact if: temperature is above 100.5 . . "Provider Documentation" section prepared by Henry Hope. . [place] Drug Monitoring Program Search Results: patient reviewed within database, no issues identified
[2016-12-19] MEDS ORDERED: FENT75DI2 EX (15:00)
[2016-12-19] MEDS ORDERED: LEVE750T PO (15:00)
[2016-12-19] MEDS ORDERED: FOLI1TAB7 PO (15:00)
[2017-01-14] MEDS ORDERED: AMLO-114 PO (09:25)
[2017-01-14] MEDS ORDERED: VNTHFA/IN INH (09:25)
[2017-01-14] MEDS ORDERED: NRN/600 PO (09:25)
== END 2016-12-04 15:00 | disposition home or self-care (01) ==
LOC: C.ACU 06:24
PROVIDERS: ATTEND Anesthesiology
DX: E11.42 Type 2 diabetes mellitus with diabetic polyneuropathy (principal); C34.90 Malignant neoplasm of unspecified part of unspecified bronchus or lung; C79.9 Secondary malignant neoplasm of unspecified site; K31.84 Gastroparesis; K21.9 Gastro-esophageal reflux disease without esophagitis; Z90.49 Acquired absence of other specified parts of digestive tract; Z96.659 Presence of unspecified artificial knee joint; Z79.82 Long term (current) use of aspirin; Z79.4 Long term (current) use of insulin

== ENCOUNTER 2016-12-25 06:52 | Observation (INO) | payer OTHER ==
[2016-12-19 14:32] VITALS: BMI 26.0
--- NOTE | 2016-12-19 15:23 | PAT Medication Instructions ---
Service Date Dec 19, 2016. Current Home Medication List Acetaminophen (Tylenol), 650 MG PO TID PRN for Pain Amlodipine (Norvasc), 10 MG PO QAM Aspirin (Aspirin Ec), 81 MG PO QAM Epinephrine (Epipen), 0.3 MG IM UD PRN for ALLERGIC REACTION Fentanyl (Fentanyl), 1 PATCH EX q48hr Fentanyl (Fentanyl), 1 PATCH EX q48hr Folic Acid (Folvite), 1 TAB PO QAM Gabapentin (Neurontin), 600 MG PO TID Hydromorphone Hcl (Dilaudid), 8 MG PO Q8 PRN for Pain Insulin Aspart (Novolog), 5 UNITS SC ACHS Insulin Glargine (Lantus), 25 UNITS SC QPM Levetiracetam (Keppra), 750 MG PO BID Magnesium Chloride (Slow-Mag Tab), 64 MG PO BID Metoclopramide Hcl (Reglan), 10 MG PO ACHS PRN for Nausea Metoprolol Tartrate (Lopressor) (Lopressor), 25 MG PO BID Multiple Vitamin (Multivitamins), 1 CAP PO QAM Ondansetron (Ondansetron HCl), 8 MG PO Q8 PRN for Nausea Pantoprazole (Protonix), 40 MG PO QAM Promethazine Hcl (Phenergan Suppository), 25 MG MO Q4H PRN for Nausea or Vomiting Venlafaxine Hcl (Effexor Xr), 37.5 MG PO QAM Medication Instructions For Your Scheduled Surgery - Check with surgeon for instructions: Aspirin (Aspirin Ec), 81 MG PO QAM - Avoid surgical site area for placement: Fentanyl (Fentanyl), 1 PATCH EX q48hr Fentanyl (Fentanyl), 1 PATCH EX q48hr - Hold the following medications the morning of surgery: Folic Acid (Folvite), 1 TAB PO QAM Insulin Aspart (Novolog), 5 UNITS SC ACHS Magnesium Chloride (Slow-Mag Tab), 64 MG PO BID Multiple Vitamin (Multivitamins), 1 CAP PO QAM Promethazine Hcl (Phenergan Suppository), 25 MG MO Q4H PRN for Nausea or Vomiting - Take the following medications the morning of surgery with a sip of water: Venlafaxine Hcl (Effexor Xr), 37.5 MG PO QAM Ondansetron (Ondansetron HCl), 8 MG PO Q8 PRN for Nausea (if needed) Pantoprazole (Protonix), 40 MG PO QAM Metoprolol Tartrate (Lopressor) (Lopressor), 25 MG PO BID Metoclopramide Hcl (Reglan), 10 MG PO ACHS PRN for Nausea (if needed) Levetiracetam (Keppra), 750 MG PO BID Gabapentin (Neurontin), 600 MG PO TID Hydromorphone Hcl (Dilaudid), 8 MG PO Q8 PRN for Pain (okay to take up to 4 hours prior to surgery if needed) Epinephrine (Epipen), 0.3 MG IM UD PRN for ALLERGIC REACTION (if needed) Acetaminophen (Tylenol), 650 MG PO TID PRN for Pain (if needed) Amlodipine (Norvasc), 10 MG PO QAM - Take the following medications as scheduled the night before surgery: Ondansetron (Ondansetron HCl), 8 MG PO Q8 PRN for Nausea (if needed) Metoprolol Tartrate (Lopressor) (Lopressor), 25 MG PO BID (if needed) Metoclopramide Hcl (Reglan), 10 MG PO ACHS PRN for Nausea (if needed) Magnesium Chloride (Slow-Mag Tab), 64 MG PO BID Insulin Glargine (Lantus), 25 UNITS SC QPM Insulin Aspart (Novolog), 5 UNITS SC ACHS Gabapentin (Neurontin), 600 MG PO TID Hydromorphone Hcl (Dilaudid), 8 MG PO Q8 PRN for Pain (if needed) Epinephrine (Epipen), 0.3 MG IM UD PRN for ALLERGIC REACTION (if needed) If you have any questions please call us at [phone] or [phone] or [phone]
[2016-12-19 15:59] LABS: BASO % 0.5 %; BASO ABS # 0.02 K/uL (0-0.2); EOS % 5.1 %; HEMATOCRIT 26.5 % (42-52); IG% 0.2 %; LYMPH % 27.8 %; LYMPH ABS # 1.15 K/uL (1.2-3.4); MEAN CELL VOLUME 88.3 fL (80-100); MEAN CORPUSCULAR HEMOGLOBIN 29.3 pg (25-34); MEAN CORPUSCULAR HGB CONC 33.2 g/dl (32-36); MEAN PLATELET VOLUME 8.8 fL (7.4-10.4); MONO % 10.4 %; PLATELET COUNT 174 K/uL (130-400); WHITE BLOOD COUNT 4.14 K/uL (4.8-10.8)
[2016-12-19 16:01] LABS: MANUAL MICROSCOPIC REQUIRED? NO; REVIEW REQ? NO; URINE APPEARANCE CLEAR (CLEAR); URINE BILIRUBIN NEG (NEG); URINE COLOR YELLOW; URINE EPITHELIAL CELL AUTO 0-5 /lpf (0-5); URINE NITRITE NEG (NEG); URINE SPECIFIC GRAVITY 1.014 (1.000-1.030); UROBILINOGEN NEG (NEG)
[2016-12-19 16:07] LABS: INR 0.9 (0.9-1.1); PROTHROMBIN TIME (PATIENT) 10.1 SECONDS (9.0-12.0)
[2016-12-19 16:46] LABS: ANISOCYTOSIS PRESENT; COMPLETE YES
--- NOTE | 2016-12-20 09:02 | History and Physical ---
History & Physical Date of Service Dec 20, 2016. History & Physical Plan of care discussed with Dr. Hope CHIEF COMPLAINT: Intractable pain secondary to lung cancer with metastasis HISTORY OF PRESENT ILLNESS: Mr. Hamilton is a 51 year old white male that is known to the with stage 3 lung cancer, diabetic neuropathy, and chronic opioid dependency. Patient reports a burning and stabbing pain predominantly in the bilateral forearms to the fingers and in the legs. He denies any true radicular symptoms. He does also have a history of Crohns disease along with intractable nausea and vomiting and typically experiences pain in the epigastric region. Patient did previously have an intrathecal pump implanted which contained Clonidine, Hydromorphone, Bupivacaine , and Ziconotide. The intrathecal pump did provide pain relief but when he had the pump replaced, the catheter became infected and the whole system was removed. He has been on a Fentanyl patch and oral Dilaudid which is not controlling his pain and when he experiences an episode of intractable nausea and vomiting he is unable to keep oral narcotics down. Patient denies any extremity weakness or constitutional complaints. PAST MEDICAL HISTORY: 1. Orthostatic hypotension 2. Diabetes mellitus, uncontrolled 3. Diabetic polyneuropathy 4. Gastroparesis 5. Stage III lung cancer 6. Hypertension 7. Gastroesophageal reflux disease PAST SURGICAL HISTORY: 1. Cholecystectomy 2. Tonsillectomy and adenoidectomy 3. Total knee arthroplasty 4. History of lung lobectomy SOCIAL HISTORY: Patient is . He denies any tobacco, alcohol, or illicit substance abuse. WORK HISTORY: Disabled ALLERGIES: Amoxicillin MEDICATIONS: 1. Tylenol 650 mg 3 times daily 2. Amlodipine 10 mg daily 3. Aspirin 81 mg daily 4. Dexamethasone 4 mg tab daily 5. EpiPen as needed 6. Fentanyl patch 150 g/hour 7. Gabapentin 600 mg 3 times daily 8. Hydromorphone 4 mg every 4 hours as needed 9. NovoLog 5 units before each meal 10. Lantus 25 units at bedtime 11. Magnesium chloride 64 mg twice daily 12. Reglan 10 mg prior to meal 13. Metoprolol tartrate 25 mg twice daily 14. Multivitamin daily 15. Zofran 8 mg every 8 hours as needed 16. Protonix 40 mg daily 17. Phenergan 12.5 mg every 4 hours as needed 18. Effexor 37.5 mg daily REVIEW OF SYSTEMS: Denies any constitutional, cardiac, pulmonary, neurological, GI, , extremity, endocrine, neuro, ENT, dermatological, or musculoskeletal complaints other than stated in HPI PHYSICAL EXAMINATION: VITAL SIGNS: Per admission GENERAL: Mr. Hamilton is a 51 year old white male that appears older than his stated age. Speech and cognition is intact. Patient does not appear in acute distress. HEAD: Normocephalic; atraumatic. EYES: Pupils are round, equal, and reactive to light; EOM intact. ENT: No external ear discharge or lesions. No rhinorrhea or epistaxis. + dry buccal mucosa. CARDIO: Regular rate and rhythm. CHEST: Regular chest respiration and excursion. ABDOMEN: Active bowel sounds throughout; mild tenderness along the epigastric region. No peritoneal signs. No CVA tenderness bilaterally. EXTREMITIES: 5/5 strength of the upper and lower extremities. Uses all extremities appropriately. Scattered paresthesias along all of the extremities in a nondermatomal pattern. BACK: Full ROM. No midline or facet tenderness. No SI joint tenderness. NEURO: CN II-XII grossly intact with no focal deficits noted. AAO x 3. SKIN: No lesions, erythema, or rashes noted. ASSESSMENT: Intractable pain secondary to lung cancer with metastasis TREATMENT: Mr. Hamilton did previously have an intrathecal pump implanted which provided moderate pain relief. Due to wound infection, the pump and catheter system had to be removed 5 years ago and he was placed onto Fentanyl patch and oral Dilaudid. As the patients pain has not been controlled with the regimen, he was offered an intrathecal hydromorphone trial. Patient did report 50% pain relief with the trial. As the patient did receive adequate pain relief, a pump re-implantation containing hydromorphone was offered to him. Risks and benefits were reviewed with the patient. Procedure was explained to the patient and he understands. He would like to proceed with the procedure. As the patient is immunocompromised, it is recommended that the patient receive Rocephin IV twice daily for the day of and the after the surgery. Platelet count will be checked one week prior and rechecked prior to surgery as he does have a history of thrombocytopenia.
[~2016-12-25] VITALS: Ht 172.7 cm; Wt 78.1 kg
[2016-12-25] VITALS (7 sets, daily range): BP systolic 170–180; BP diastolic 96–109; PULSE 77–84; TEMP 36.6–36.9; O2SAT 95–100; Ht 172.7 cm; Wt 78.1 kg
[~2016-12-25 06:52] MED LIST changes: +CEFAZOLIN 2000 MG/60 ML D5W IV SCH; -DEXA1TAB16 PO; -DRGTP50 TOP; -FENT100D10 TOP; +FENT75DI2 EX; +FOLI1TAB7 PO; -HYDROMORPHONE HCL IT SCH; -INSDGIPEN SC; +LACTATED RINGER'S 1000ML 1,000 ML IV SCH; +LEVE750T PO; -PROM12.56 PO; -TAPE1TAB11 PO
[2016-12-25 07:21] LABS: HEMATOCRIT 28.8 % (42-52); MEAN CELL VOLUME 86.2 fL (80-100); MEAN CORPUSCULAR HEMOGLOBIN 29.9 pg (25-34); MEAN PLATELET VOLUME 8.4 fL (7.4-10.4); PLATELET COUNT 179 K/uL (130-400); RED BLOOD COUNT 3.34 M/uL (4.7-6.1); WHITE BLOOD COUNT 4.37 K/uL (4.8-10.8)
[2016-12-25 07:28] LABS: MEAN CORPUSCULAR HGB CONC 34.7 g/dl (32-36)
[2016-12-25] MEDS ORDERED: NURSING VERBAL MED ORDER ONE ×3 (08:15→20:30)
[2016-12-25] MEDS ORDERED: DEXAMETHASONE SOD INJ 4 MG/ML VIAL ONE (11:03)
[2016-12-25] MEDS ORDERED: FENTANYL CITRATE INJ 50 MCG/1 ML 2 ML VIAL ONE ×3 (11:03→15:53)
[2016-12-25] MEDS ORDERED: ROCURONIUM BROMIDE 10 MG/ML 5 ML VIAL IV ONE (11:03)
[2016-12-25] MEDS ORDERED: MIDAZOLAM HCL 1 MG/ML 2ML VIAL ONE (11:03)
[2016-12-25] MEDS ORDERED: GLYCOPYRROLATE INJ 0.2 MG/ML VIAL ONE (11:03)
[2016-12-25] MEDS ORDERED: PROPOFOL IV EMULSION 10 MG/ML 20 ML VIAL IV ONE (11:03)
[2016-12-25] MEDS ORDERED: ONDANSETRON INJ 2 MG/ML 2 ML VIAL ONE (11:03)
[2016-12-25] MEDS ORDERED: NEOSTIGMINE METHYLSULFATE 5 MG/5 ML SYR ONE (11:03)
[2016-12-25] MEDS ORDERED: LIDOCAINE HCL 2% 2 ML VIAL (20MG/ML) ONE (11:03)
--- NOTE | 2016-12-25 12:39 | History & Physical Bridge Note ---
H&P Re-Evaluation Bridge Note: I have examined the patient, reviewed the History & Physical and in the interval since the performance of the History & Physical I have noted the following changes of clinical significance: No changes noted CBC from this morning reviewed. No change in history or physical exam. Understands the risks, benfits and alternatives to the proposed procedure. Elects to proceed. Will discontinue transdermal fentanyl.
[2016-12-25] MEDS ORDERED: BUPIVACAINE/EPINEPHRINE 0.25% 1:200,000 30 ML VIAL ONE (12:44)
[2016-12-25] MEDS ORDERED: NEOMYCIN/POLYMYX/BACITR OINT 15 GM TUBE ONE (12:44)
[2016-12-25] MEDS ORDERED: BACITRACIN 50000 UNIT VIAL ONE (12:44)
[2016-12-25] MEDS ORDERED: FENTANYL PATCH REMOVE & WASTE ONE (12:45)
[2016-12-25] MEDS ORDERED: LIDO 2%/EPINEPHRINE 1:100000 20 ML VIAL INFIL ONE (12:56)
[2016-12-25] MEDS ORDERED: EpHEDrine SULFATE 50MG/5ML SYR ONE (15:14)
[2016-12-25] MEDS ORDERED: PHENYLEPHRINE HCL INJ 10 MG/ML VIAL ONE (15:14)
[2016-12-25] MEDS ORDERED: EPINEPHRINE ADULT AUTO-INJECT 0.3 MG SYR IM PRN (15:45)
[2016-12-25] MEDS ORDERED: NALOXONE HCL 0.4 MG/1 ML VIAL/CARP IV PRN (15:45)
[2016-12-25] MEDS ORDERED: PROMETHAZINE HCL 25 MG SUPP PR PRN (15:45)
[2016-12-25] MEDS ORDERED: METOCLOPRAMIDE HCL 10 MG TAB PO PRN (15:45)
[2016-12-25] MEDS ORDERED: ONDANSETRON 8 MG TAB PO PRN (15:45)
[2016-12-25] MEDS ORDERED: HYDROCODONE/ACETAMOPHEN 5/325MG TAB PO PRN (15:45)
[2016-12-25] MEDS ORDERED: LABETALOL HCL IV 5 MG/ML 20ML IV ONE (15:53)
--- NOTE | 2016-12-25 16:05 | [facility] Operative Report ---
Operative Report Operative Date Dec 25, 2016. Pre-Operative Diagnosis Intractable Pain Secondary to Lung Cancer with Metastasis Post-Operative Diagnosis Same as preoperative Procedure(s) Performed Intrathecal Pain Pump Implantation Surgeon Dr. Hope Pharmacy Intake Technician Surgeon(s) None per surgeon Estimated Blood Loss 15ml Findings INTRATHECAL DRUG DELIVERY SYSTEM IMPLANTATION OPERATIVE REPORT PREOPERATIVE DIAGNOSIS: Intractable pain secondary diabetic neuropathy and malignancy. POSTOPERATIVE DIAGNOSIS: Same. PROCEDURE: 1. Insertion of intrathecal catheter under fluoroscopic guidance. 2. Implantation of intrathecal pump. 3. Catheter access port study. 4. Intrathecal pump refill. 5. Postoperative reprogramming of intrathecal drug delivery system pump. INDICATIONS: Chronic diabetic neuropathy and cancer pain. COMPLICATIONS: None. ANESTHESIA: General. DESCRIPTION OF PROCEDURE: The patient had a successful intrathecal trial and agreed to intrathecal pump insertion. Prior to starting, the Patients diagnosis and the procedure were reviewed with the patient in detail. Possible risks and complications including infection, bleeding, damage to surrounding structures and increased pain were discussed. Alternative therapies were also reviewed. Patients questions were answered and they agreed to proceed. Informed consent was obtained. Allergies and medication list was reviewed. Biplanar fluoroscopy was used to assist in placement of the needle as well as to evaluate the final needle and catheter positions. The patient was brought to the operating room and general anesthesia was induced by members of the department. Patient was then placed in left lateral decubitus position. Immediately prior to starting the procedure, a time out was conducted with the staff where the patient was identified, proposed procedure was verified, consent was reviewed and the proper site for the planned procedure was identified. Preoperative antibiotics for prophylaxis were given through the IV. On examination, no signs of skin breakdown or infection were noted at the injection site. The site was cleansed with DuraPrep followed by Betadine. Sterile drapes were applied in the usual fashion. Using biplanar fluoroscopy an 18-gauge spinal needle was used to gain access to the intrathecal sac at L3/ L4 interspace. Clear free cerebral spinal fluid flow was noted without any blood. Medtronic intrathecal catheter was passed through the needle under fluoroscopic guidance and the tip was positioned at T10 level. Stylet was removed and free CSF flow was aspirated. Using a scalpel, 1-1/2 inch midline incision was made surrounding the intrathecal needle. Hemostasis was achieved using electro cautery. The epidural catheter was secured to the dorso-lumbar fascia with 2 purse string 0-0 silk ties. Then the spinal needle was removed and a Medtronic butterfly anchor to secure the catheter to the underlying supraspinous ligament was utilized to secure the catheter. Free CSF flow from the intrathecal catheter after anchoring of the catheter to the fascia. Then in the right lower quadrant a pocket for the intrathecal pump was made using scalpel to skin incision and electro cautery for the deeper layers. A passer was used to transfer the intrathecal pump catheter underneath the skin and subcutaneous tissues through to the pocket incision. After transfer of the end of the catheter to the pocket incision aspiration of the intrathecal catheter revealed free CSF flow. Both pocket and midline axial thoracic incisions were irrigated with 3 bulb syringes full of sterile normal saline with bacitracin. Hemostasis was achieved. The intrathecal pump was filled was rinsed and filled with hydromorphone 1 mg/ml per protocol. The intrathecal catheter was trimmed to 67.9 cm. The suture-less connector was connected to the end the intrathecal pump and aspiration from of the end of the catheter was free-flowing. It was then connected to the intrathecal pump using the connecting device. The intrathecal pump was anchored in the pocket with 4-0 Prolene sutures. No complications were noted after the intrathecal pump was placed inside the pocket. Both wounds were irrigated with bacitracin-containing normal saline. Both wounds were closed in similar fashion using continuous 0 V lock suture for deeper layer and running 3-0 V lock suture for subcuticular layer. Prineo to the skin. 4 x 4 gauze and pressure dressing was applied to both sites. Abdominal binder was placed. No complications were noted throughout the procedure. The patient tolerated the procedure and general anesthesia without obvious complications.. Patient was allowed to emerge from anesthesia at the end of the procedure and [facility] Patient was transported to the recovery room in stable condition. The patient will follow up with our clinic within 7 days for a wound check and then plan to have the adrienne removed at day 14. Pump size inserted: 20ml Level of catheter: T10 Catheter trimmed to: 67.9 cm Medication placed in pump: hydromorphone 1 mg/ml to run at 0.25 mg/day Specimens None per surgeon I attest to the content of the Intraoperative Record and any orders documented therein. Any exceptions are noted below.
[2016-12-25] MEDS ORDERED: LABETALOL HCL IV 5 MG/ML 20ML IV PRN (16:15)
[2016-12-25] MEDS ORDERED: HYDROmorphone INJ 1 MG/ML SYR IV PRN (16:15)
[2016-12-25] MEDS ORDERED: ATROPINE SULFATE 0.1 MG/ML 5ML SYR IV PRN (16:15)
[2016-12-25] MEDS ORDERED: ONDANSETRON INJ 2 MG/ML 2 ML VIAL IV PRN (16:15)
[2016-12-25] MEDS ORDERED: FENTANYL CITRATE INJ 50 MCG/1 ML 2 ML VIAL IV PRN (16:15)
[2016-12-25] MEDS ORDERED: EpHEDrine SULFATE INJ 50 MG/ML AMP IV PRN (16:15)
[2016-12-25] MEDS ORDERED: IV FLUIDS COMPLETED PRN (16:30)
--- NOTE | 2016-12-25 16:30 | Anesthesiology Progress Note ---
Anesthesia Post Op Note Date & Time Dec 25, 2016 at 16:30 Vital Signs Pain Intensity: 3 Vital Signs Past 12 Hours Date Time Temp Pulse Resp B/P (MAP) Pulse Ox O2 Delivery O2 Flow Rate FiO2 12/25/16 15:41 36.3 90 16 190/111 100 Mask 10 12/25/16 08:16 36.9 84 18 180/100 (126) 95 Room Air Notes Mental Status: alert / awake / arousable, participated in evaluation Pt Amnestic to Procedure: Yes Nausea / Vomiting: adequately controlled Pain: adequately controlled Airway Patency, RR, SpO2: stable & adequate BP & HR: stable & adequate Hydration State: stable & adequate Anesthetic Complications: no major complications apparent
[2016-12-25] MEDS ORDERED: INSULIN ASPART 100 UNITS/ML 3 ML PEN SC ONE (18:30)
[2016-12-25] MEDS: LACTATED RINGER'S 1000ML 1,000 ML IV SCH (18:32)
[2016-12-25] MEDS: METOPROLOL TARTRATE 25 MG TAB PO SCH (18:32)
[2016-12-25] MEDS ORDERED: GLUCOSE 40% GEL 15 GM TUBE PO PRN (20:00)
[2016-12-25] MEDS ORDERED: GLUCOSE 10 TABS/TUBE PO PRN (20:00)
[2016-12-25] MEDS ORDERED: GLUCAGON FOR INJ 1 MG VIAL SQ PRN (20:00)
[2016-12-25] MEDS ORDERED: DEXTROSE 50% 50 ML SYR IV PRN (20:00)
[2016-12-25] MEDS ORDERED: CEFTRIAXONE SOD INJ 1 GM in DEXTROSE 5% ADD-VANTAGE 50ML 50 ML IV SCH (20:00)
[2016-12-25] MEDS ORDERED: INSULIN GLARGINE SOLOSTAR 100 UNITS/ML 3 ML PEN SC SCH (21:00)
[2016-12-25] MEDS ORDERED: INSULIN ASPART 100 UNITS/ML 3 ML PEN SC SCH (21:00)
[2016-12-25] MEDS: HYDROmorphone HCL 2 MG TAB PO PRN (21:19)
[2016-12-25] MEDS: LEVETIRACETAM 250 MG TAB PO SCH (21:20)
[2016-12-25] MEDS: MAGNESIUM CHLORIDE 64MG DELAYED REL TAB PO SCH (21:21)
[2016-12-26] VITALS (8 sets, daily range): BP systolic 128–180; BP diastolic 63–104; PULSE 81–94; TEMP 36.7–36.9; O2SAT 96–99
[2016-12-26] MEDS: HYDROmorphone HCL 2 MG TAB PO PRN ×4 (02:34→15:51)
--- NOTE | 2016-12-26 05:40 | Medical Consult ---
Consultation Date of Consultation: Dec 26, 2016. Attending Physician: Upendra. Hope M.D. Reason for Consultation: Medical Management History of Present Illness The patient is a pleasant 51 year old who is s/p intrathecal pump placement today by Dr. Ford on 12/25. The patient has unfortunately had chronic stemming from lung malignancy and diabetic neuropathy. He experiences burning pain to the upper and lower extremities. He had some success with intracthecal pump previously, which had to be prematurely removed due to infection. Given difficulty controlling pain on oral regimen, he was deemed to be suitable to have it replaced on this occasion. The patient states that he has generalize discomfort all over but this is no different than his baseline. He denies any nausea or vomiting or new pains. He was able to eat after his procedure today without difficulty. Review of his history reveals he has stage III lung cancer, hypertension, type 2 diabetes mellitus with neuropathy, GERD and gastroparesis. He was noted to be hypertensive, BP > 170 systolic earlier in the evening but this has since come down to 150 systolic. Since he has come in his sugars in the 200s for most of the day but eventually came down to 130. There were no acute events reported by nursing. Past Medical/Surgical History Medical Problems: (1) Acute kidney injury Status: Acute (2) Altered mental status Status: Acute (3) Anemia Status: Acute (4) Chronic pain Status: Acute (5) Dehydration Status: Acute (6) Dehydration Status: Acute (7) Dehydration Status: Acute (8) Dehydration Status: Acute (9) Diabetes mellitus with hyperglycemia Status: Acute (10) Failure of outpatient treatment Status: Acute (11) Hypomagnesemia Status: Acute (12) Hypomagnesemia Status: Acute (13) Intractable vomiting Status: Acute (14) Intractable vomiting Status: Acute (15) Orthostatic hypotension Status: Acute (16) Vomiting Status: Acute (17) Vomiting Status: Acute Family History Cancer Diabetes mellitus Hypertension Social History Smoking Status: Former Smoker Smokeless Tobacco Use: No Alcohol Use: none Drug Use: none Marital Status: Housing Status: lives with family Occupation Status: disabled Allergies Coded Allergies: BEE STING (Verified Allergy, Mild, SWELLING AT SITE, SOB, 12/19/16) Penicillins (Unverified Allergy, Unknown, "SINCE "-Amoxicillin, ) Home Medications Reported Home Medications Medications Dose Route/Sig Max Daily Dose Days Date Category Dose Instructions Keppra (Levetiracetam) 750 Mg Tab 750 Mg PO BID 12/19/16 Reported Folvite (Folic Acid) 1 Mg Tab 1 Tab PO QAM 90 12/19/16 Reported Fentanyl 75 Mcg/Hr Dis 1 Patch EX Q48HR 12/19/16 Reported Fentanyl 75 Mcg/Hr Dis 1 Patch EX Q48HR 12/19/16 Reported Novolog (Insulin Aspart) 100 Units/Ml Inj 5 Units SC ACHS 10/23/16 Reported SLIDING SCALE PER Effexor Xr (Venlafaxine Hcl) 37.5 Mg Cap 37.5 Mg PO QAM 30 10/23/16 Reported Protonix (Pantoprazole Sodium) 40 Mg Tab 40 Mg PO QAM 10/14/16 Reported Tylenol (Acetaminophen) 325 Mg Tab 650 Mg PO TID PRN 10/14/16 Reported Phenergan Suppository (Promethazine HCl) 25 Mg Supp 25 Mg HI Q4H PRN 10/14/16 Reported Reglan (Metoclopramide Hcl) 10 Mg Tab 10 Mg PO ACHS PRN 08/25/16 Reported Lopressor (Metoprolol Tartrate) 25 Mg Tab 25 Mg PO BID 08/25/16 Reported Slow-Mag Tab (Magnesium Chloride) 64 Mg Tabcr 64 Mg PO BID 08/25/16 Reported Dilaudid (Hydromorphone Hcl) 2 Mg Tab 8 Mg PO Q8 PRN 08/25/16 Reported Norvasc (Amlodipine Besylate) 10 Mg Tab 10 Mg PO QAM 08/25/16 Reported Ondansetron HCl (Ondansetron) 4 Mg Tab 8 Mg PO Q8 PRN 08/15/16 Reported Aspirin Ec (Aspirin) 81 Mg Tab 81 Mg PO QAM 08/05/16 Reported Lantus (Insulin Glargine) 100 Unit/Ml Inj 25 Units SC QPM 08/05/16 Reported Epipen (Epinephrine) 0.3 Mg/0.3 Ml Inj 0.3 Mg IM UD PRN 04/16/13 Reported Multivitamins (Multiple Vitamin) 1 Cap Cap 1 Cap PO QAM 04/16/13 Reported Current Inpatient Medications Current Inpatient Medications Medications (Trade) Dose Ordered Sig/Cal Route Start Time Stop Time Status Last Admin Dose Admin Naloxone HCl (Narcan Inj) 0.4 mg PRN PRN IV 12/25/16 15:45 01/24/17 15:44 Lactated Ringer's 1,000 ml @ 100 mls/hr Q10H IV 12/25/16 15:42 01/24/17 15:41 12/25/16 18:32 100 MLS/HR Docusate Sodium (coLACE CAP) 100 mg DAILY PO 12/26/16 09:00 01/25/17 08:59 Amlodipine Besylate (Norvasc Tab) 10 mg QAM PO 12/26/16 09:00 01/25/17 08:59 Aspirin (Ecotrin Tab) 81 mg QAM PO 12/26/16 09:00 01/25/17 08:59 Epinephrine (Epipen) 0.3 mg UD PRN IM 12/25/16 15:45 01/24/17 15:44 Folic Acid (Folvite Tab) 1 mg QAM PO 12/26/16 09:00 01/25/17 08:59 Insulin Aspart (novoLOG ASPART) 5 units ACHS SC 12/25/16 21:00 01/24/17 20:59 12/25/16 21:24 5 UNITS Insulin Glargine (Lantus Solostar Pen) 25 units QPM SC 12/25/16 21:00 01/24/17 20:59 12/25/16 21:24 15 UNITS Levetiracetam (Keppra Tab) 750 mg BID PO 12/25/16 21:00 01/24/17 20:59 12/25/16 21:20 750 MG Magnesium Chloride (Slow-Mag Tab) 64 mg BID PO 12/25/16 21:00 01/24/17 20:59 12/25/16 21:21 64 MG Metoclopramide HCl (Reglan Tab) 10 mg ACHS PRN PO 12/25/16 15:45 01/24/17 15:44 Metoprolol Tartrate (Lopressor Tab) 25 mg BID PO 12/25/16 21:00 01/24/17 20:59 12/25/16 18:32 25 MG Ondansetron HCl (Zofran Tab) 8 mg Q8 PRN PO 12/25/16 15:45 01/24/17 15:44 Pantoprazole Sodium (Protonix Tab) 40 mg QAM PO 12/26/16 09:00 01/25/17 08:59 Promethazine HCl (Phenergan Supp) 25 mg Q4H PRN HI 12/25/16 15:45 01/24/17 15:44 Venlafaxine HCl (effeXOR EXTENDED REL CAP) 37.5 mg QAM PO 12/26/16 09:00 01/25/17 08:59 Miscellaneous (Iv Fluids Completed) 1 ea PRN PRN N/A 12/25/16 16:30 12/25/17 16:29 Glucose (Glucose 40% Gel) 15-30 GRAMS 15 GRAMS... UD PRN PO 12/25/16 20:00 01/24/17 19:59 Glucose (Glucose Chew Tab) 4-8 Tablets 4 Tabl... UD PRN PO 12/25/16 20:00 01/24/17 19:59 Dextrose (Dextrose 50% 50ML Syringe) 25-50ML OF 50% DW IV FOR... UD PRN IV 12/25/16 20:00 01/24/17 19:59 Glucagon (Glucagon Inj) 1 mg UD PRN SQ 12/25/16 20:00 01/24/17 19:59 Hydromorphone HCl (Dilaudid Tab) 2 mg Q2H PRN PO 12/25/16 21:15 01/08/17 21:14 12/26/16 02:34 2 MG Review of Systems A 10 point review of systems was negative unless stated above. Physical Exam Date Time Temp Pulse Resp B/P (MAP) Pulse Ox O2 Delivery O2 Flow Rate FiO2 12/26/16 04:00 36.7 81 18 147/80 (102) 99 Room Air 12/26/16 00:00 36.7 82 20 151/89 (109) 98 Room Air 12/25/16 23:59 Room Air 12/25/16 20:00 98 Room Air 12/25/16 19:45 36.7 80 177/96 (123) Nasal Cannula 100 12/25/16 19:43 36.6 80 22 170/96 (120) 100 Nasal Cannula 3.0 12/25/16 18:45 77 171/100 (123) 12/25/16 17:45 80 173/99 (123) 100 12/25/16 16:45 36.7 80 16 176/109 (131) 100 Nasal Cannula 2.0 12/25/16 16:30 36.2 169/95 12/25/16 16:26 90 100 12/25/16 16:26 78 14 12/25/16 16:25 165/98 12/25/16 16:21 80 100 12/25/16 16:21 80 14 12/25/16 16:20 174/103 12/25/16 16:16 87 13 100 12/25/16 16:16 79 13 12/25/16 16:15 175/97 12/25/16 16:11 79 16 100 12/25/16 16:11 79 12/25/16 16:10 166/94 12/25/16 16:06 81 12/25/16 16:06 88 10 100 12/25/16 16:05 175/104 12/25/16 16:01 81 10 100 12/25/16 16:01 81 12/25/16 16:00 168/101 12/25/16 15:56 82 12/25/16 15:56 82 10 100 12/25/16 15:55 183/102 12/25/16 15:51 86 10 12/25/16 15:51 86 10 100 12/25/16 15:50 181/106 12/25/16 15:47 189/108 12/25/16 15:46 89 17 190/111 100 12/25/16 15:46 85 17 12/25/16 15:41 36.3 90 16 190/111 100 Mask 10 12/25/16 08:16 36.9 84 18 180/100 (126) 95 Room Air General Appearance: WD/WN, no apparent distress Head: normocephalic, atraumatic Eyes: normal inspection, EOMI ENT: hearing grossly normal, pharynx normal Neck: supple, no adenopathy, no JVD Respiratory/Chest: lungs clear, no respiratory distress Cardiovascular: regular rate, rhythm, no gallop, no murmur Abdomen/GI: + pertinent finding (difficult to assess as patient has compelete torso/abdomen wrapped post-procedure, there is no increased tenderness to superficial palpation of the abdomen) Extremities/Musculoskelatal: no calf tenderness, no pedal edema Neurologic/Psych: alert, oriented x 3 Skin: normal color, warm/dry, no rash Lymphatic: no adenopathy Laboratory Results Last 24 Hours Test 12/25/16 07:15 12/25/16 07:40 12/25/16 11:36 12/25/16 15:56 White Blood Count 4.37 K/uL Red Blood Count 3.34 M/uL Hemoglobin 10.0 g/dL Hematocrit 28.8 % Mean Corpuscular Volume 86.2 fL Mean Corpuscular Hemoglobin 29.9 pg Mean Corpuscular Hemoglobin Concent 34.7 g/dl RDW Standard Deviation 41.4 fL RDW Coefficient of Variation 13.1 % Platelet Count 179 K/uL Mean Platelet Volume 8.4 fL Bedside Glucose 236 mg/dl 203 mg/dl 256 mg/dl Test 12/25/16 16:58 12/25/16 20:32 Bedside Glucose 253 mg/dl 130 mg/dl Assessment & Plan 51 year old male day 1 status post-intrathecal pump placement for chronic pain. Hospitalist service was consulted for general medical management. Our recommendations are as follows Diabetic Neuropathic Pain and Chronic Pain 2/2 Malignancy - Status post-intrathecal pump placement - Per primary team Type 2 Diabetes Mellitus - BSG 200 yesterday; most recent 130 - I note Decadron was ordered but does not appear to have been given - Recommend changing Aspart to Sliding Scale with the following parameter Goal 140-180; Correction Factor 30; Carb Ratio 10 - AC/HS BSGs - Diabetic Diet - Can resume home medications at discharge Hypertension - Systolic BP noted in the 170s yesterday; later evening came down to 147 systolic. - Post-operative pain may be contributing to elevated BP - Pain control per primary team - Continue Metoprolol and Amlodipine - If remains > 160 systolic or 110 diastolic, can add on PRN Hydralazine 10 mg q 4 hours Gastroparesis and GERD - Continue Metoclopramide - Continue Phenergan PRN - Continue Protonix Orders for recommendations above have not been entered. Please notify us if you want us to make order change based on our recommendations. Thank you consulting us on this patient we will continue to follow along. Attending Attestation: Pt seen/examined, chart reviewed, care plan d/w PGY 3 Dr. Jeffery Jewell. I agree w/ the cortes components of his documentation. 51yo male with long-standing T1DM, lung cancer, gastroparesis, and chronic pain syndrome who underwent placement of an intrathecal pain pump by Dr. Idalia Hernandez. His main complaints during my visit were that of emesis, abdominal pain, and concern about "infection" [at the site of the pain pump]. He admitted that he has near-daily episodes of emesis/regurgitation. In fact he has a gastric stimulator device due to the severity of his gastroparesis. He reports reglan and erythromycin "don't work." Denied any dyspnea. PMH, PSH, allergies, meds, sochx, famhx, ros - reviewed VSS no fever gen - NAD, a/o x 3 neck - no JVD heart - RRR lungs - CTA b/l abd - gastric stimulator device LUQ palpable; intrathecal pain pump site covered with dry, sterile dressing; mild tenderness in location of pain pump insertion, BS+ ext - no edema A/P: 1. s/p intrathecal pain pump insertion 2. vomiting, likely 2nd to gastroparesis, but if it persists consider KUB x-ray 3. T1DM - modestly uncontrolled in the setting of yevgeniy-operative stress - agree with Dr. Jewell's recommendations 4. pain - per the pain management service 5. HTN - agree with Dr. Jewell's recommendations patient is slated for possible d/c later today by primary team discharge likely will hinge on ability to keep meds/liquids/diet down without persistent vomiting Jose Espinoza MD
--- NOTE | 2016-12-26 07:55 | Anesthesiology Progress Note ---
Anesthesia Post Op Note Date & Time Dec 26, 2016 at 07:55 Vital Signs Pain Intensity: 8.0 Vital Signs Past 12 Hours Date Time Temp Pulse Resp B/P (MAP) Pulse Ox O2 Delivery O2 Flow Rate FiO2 12/26/16 04:00 Room Air 12/26/16 04:00 36.7 81 18 147/80 (102) 99 Room Air 12/26/16 00:00 36.7 82 20 151/89 (109) 98 Room Air 12/25/16 23:59 Room Air 12/25/16 20:00 98 Room Air Notes Mental Status: alert / awake / arousable, participated in evaluation Pt Amnestic to Procedure: Yes Nausea / Vomiting: adequately controlled Pain: adequately controlled Airway Patency, RR, SpO2: stable & adequate BP & HR: stable & adequate Hydration State: stable & adequate Anesthetic Complications: no major complications apparent
[2016-12-26] MEDS: METOPROLOL TARTRATE 25 MG TAB PO SCH (08:24)
[2016-12-26] MEDS: MAGNESIUM CHLORIDE 64MG DELAYED REL TAB PO SCH (08:24)
[2016-12-26] MEDS: LEVETIRACETAM 250 MG TAB PO SCH (08:24)
--- NOTE | 2016-12-26 08:46 | Discharge Instructions ---
Discharge Instructions Date of Service Dec 26, 2016. Visit Reason for Visit: Chronic Pain Discharge Discharge Diagnosis / Problem: Chronic intractable pain requiring the implantation of an intrathecal pump Discharge Goals Goal(s): Decrease discomfort Medications Stopped Medications Name(s): Discontinue Fentanyl patch Activity Recommendations Activity Recommendations: no lifting of items 5lbs or more, no repetitive bending, no repetitive twists, no showers for 3 days Lifting Limitations: no more than 5 pounds Exercise/Sports Limitations: until after follow-up appointment May Resume Sexual Activity: after follow-up appointment Shower/Bathe: may shower/bathe in 3 days, keep incision dry Driving or Machine Use: No driving x 2 weeks Anesthesia . Post Anesthesia Instructions: If you have had General Anesthesia or IV Sedation: * Do not drive today. * Resume driving when surgeon permits. * Do not make important decisions or sign legal documents today. * Call surgeon for: * Temperature elevations greater than 101 degrees F. * Uncontrollable pain. * Excessive bleeding. * Persistent nausea and vomiting. * Medication intolerance (nausea, vomiting or rash). * For nausea and vomiting use only clear liquids such as: tea, soda, bouillon until nausea subsides, then gradually increase diet as tolerated. * If you have any concerns or questions, call your surgeon's office. If physician is unavailable and it is an emergency, call [phone] or go to the nearest emergency room. . Instructions Instructions / Follow-Up . * Change dressings daily. Apply sterile dry gauze. * Call [facility] [phone] or go to the nearest emergency room if he experience high fevers, new back pain, new neurological symptoms such as numbness or weakness in the lower extremity or new bowel bladder incontinence. Also of call if he experience a headache that is positional. * Wear abdominal binder. * No showers for 3 days. * Resume normal activity. No repetitive bending, twisting or reaching overhead for 2 weeks. Do not lift more than 5 pounds for 2 weeks. . Follow-Up Follow-Up: 1 week in office for wound check (Appointment with our office is scheduled on 01/02 at 1:30PM and 01/09 at 9:20 and 02/26 at 2PM) Diet Recommendations Home Diet: diabetes diet Procedures Procedures Performed: Intrathecal Pain Pump Implantation Pending Studies Studies pending at discharge: no Medical Emergencies . Who to Call and When: Medical Emergencies: If at any time you feel your situation is an emergency, please call 911 immediately. . Non-Emergent Contact Non-Emergency issues call your: Pain Management provider Call Non-Emergent contact if: temperature is above 101, wound has increased drainage, wound has increased redness, wound has increased pain, you have any medication questions . Past History Medical & Surgical History: (1) Diabetes mellitus, type II (2) Diabetic polyneuropathy (3) Gastroparesis (4) Lung cancer (5) HTN (hypertension) (6) History of cholecystectomy (7) History of tonsillectomy and adenoidectomy (8) Hx of total knee arthroplasty (9) S/P lobectomy of lung (10) H/O esophagogastroduodenoscopy (11) H/O colonoscopy . "Provider Documentation" section prepared by Brenna Mancilla PA-C. .
[2016-12-26 09:00] LABS: HEMATOCRIT 27.1 % (42-52); MEAN CELL VOLUME 85.2 fL (80-100); MEAN CORPUSCULAR HEMOGLOBIN 29.9 pg (25-34); MEAN CORPUSCULAR HGB CONC 35.1 g/dl (32-36); MEAN PLATELET VOLUME 8.3 fL (7.4-10.4); PLATELET COUNT 160 K/uL (130-400); RED BLOOD COUNT 3.18 M/uL (4.7-6.1); WHITE BLOOD COUNT 4.78 K/uL (4.8-10.8)
[2016-12-26] MEDS ORDERED: DOCUSATE SODIUM 100 MG CAP PO SCH (09:00)
[2016-12-26] MEDS ORDERED: AMLODIPINE BESYLATE 5 MG TAB PO SCH (09:00)
[2016-12-26] MEDS ORDERED: PANTOprazole SOD 40 MG TAB PO SCH (09:00)
[2016-12-26] MEDS ORDERED: ASPIRIN 81 MG ECTAB PO SCH (09:00)
[2016-12-26] MEDS ORDERED: VENLAFAXINE HCL XR 37.5 MG CAPXR PO SCH (09:00)
[2016-12-26 09:19] LABS: BUN/CREATININE RATIO 14.8 (10-20); CALCIUM 8.2 mg/dl (8.5-10.1); CREATININE 1.4 mg/dl (0.60-1.40)
--- NOTE | 2016-12-26 10:04 | Hospitalist Progress Note ---
Hospitalist Progress Note Date of Service Dec 26, 2016. (Ekaterina Cannon ., ANDREWC) Subjective Pt evaluation today including: conversation w/ patient, physical exam, chart review, lab review, review of inpatient medication list Patient complains of generalized pain and RLQ abdominal pain. He also complains of nausea. He did vomit early this morning around 4 am but has not vomited again since. He tolerated breakfast well. He is urinating postoperatively and passing gas. He has not yet had a bowel movement. He denies any worsening numbness/tingling beyond his baseline neuropathy. The patient denies fevers, chills, sweats, chest pain, palpitations, claudication, cough, wheezing, shortness of breath, vomiting, dysuria, hematuria, urinary retention, paralysis, weakness, acute numbness and tingling. Additional Comments: See HPI for pertinent positives and negatives. All other systems reviewed and negative. (Ekaterina Cannon ., PA-C) Objective Vital Signs Date Time Temp Pulse Resp B/P (MAP) Pulse Ox O2 Delivery O2 Flow Rate FiO2 12/26/16 08:20 36.9 90 18 131/63 (85) 96 12/26/16 04:00 Room Air 12/26/16 04:00 36.7 81 18 147/80 (102) 99 Room Air 12/26/16 00:00 36.7 82 20 151/89 (109) 98 Room Air 12/25/16 23:59 Room Air 12/25/16 20:00 98 Room Air 12/25/16 19:45 36.7 80 177/96 (123) Nasal Cannula 100 12/25/16 19:43 36.6 80 22 170/96 (120) 100 Nasal Cannula 3.0 12/25/16 18:45 77 171/100 (123) 12/25/16 17:45 80 173/99 (123) 100 12/25/16 16:45 36.7 80 16 176/109 (131) 100 Nasal Cannula 2.0 12/25/16 16:30 36.2 169/95 12/25/16 16:26 90 100 12/25/16 16:26 78 14 12/25/16 16:25 165/98 12/25/16 16:21 80 100 12/25/16 16:21 80 14 12/25/16 16:20 174/103 12/25/16 16:16 87 13 100 12/25/16 16:16 79 13 12/25/16 16:15 175/97 12/25/16 16:11 79 16 100 12/25/16 16:11 79 12/25/16 16:10 166/94 12/25/16 16:06 81 12/25/16 16:06 88 10 100 12/25/16 16:05 175/104 12/25/16 16:01 81 10 100 12/25/16 16:01 81 12/25/16 16:00 168/101 12/25/16 15:56 82 12/25/16 15:56 82 10 100 12/25/16 15:55 183/102 12/25/16 15:51 86 10 12/25/16 15:51 86 10 100 12/25/16 15:50 181/106 12/25/16 15:47 189/108 12/25/16 15:46 89 17 190/111 100 12/25/16 15:46 85 17 12/25/16 15:41 36.3 90 16 190/111 100 Mask 10 (Ekaterina Cannon ., PA-C) Physical Exam Notes: General appearance: Well-developed, well-nourished, no apparent distress Head: Normocephalic, atraumatic Eyes: Normal inspection, PERRL, EOMI ENT: Normal ENT inspection, hearing grossly normal, pharynx normal Neck: Supple, no JVD, trachea midline Respiratory/Chest: Lungs clear to auscultation, normal breath sounds, no respiratory distress Cardiovascular: Regular rate & rhythm, no gallop, no murmur Abdomen/GI: +RLQ TTP. Normal bowel sounds, soft Extremities/Musculoskeletal: Normal inspection, no calf tenderness, no pedal edema Neurological/Psych: Alert, normal mood/affect, oriented x 3 Skin: Normal color, warm/dry, no rash (Ekaterina Cannon ., PA-C) Laboratory Results Last 24 Hours Test 12/25/16 11:36 12/25/16 15:56 12/25/16 16:58 12/25/16 20:32 Bedside Glucose 203 mg/dl 256 mg/dl 253 mg/dl 130 mg/dl Test 12/26/16 06:42 12/26/16 08:50 Bedside Glucose 186 mg/dl White Blood Count 4.78 K/uL Red Blood Count 3.18 M/uL Hemoglobin 9.5 g/dL Hematocrit 27.1 % Mean Corpuscular Volume 85.2 fL Mean Corpuscular Hemoglobin 29.9 pg Mean Corpuscular Hemoglobin Concent 35.1 g/dl RDW Standard Deviation 41.3 fL RDW Coefficient of Variation 13.2 % Platelet Count 160 K/uL Mean Platelet Volume 8.3 fL Sodium Level 139 mmol/L Potassium Level 5.0 mmol/L Chloride Level 104 mmol/L Carbon Dioxide Level 30 mmol/L Anion Gap 5.0 mmol/L Blood Urea Nitrogen 21 mg/dl Creatinine 1.40 mg/dl Est Creatinine Clear Calc Drug Dose 60.4 ml/min Estimated GFR () 66.9 Estimated GFR (Non- 57.8 BUN/Creatinine Ratio 14.8 Random Glucose 223 mg/dl Calcium Level 8.2 mg/dl (Ekaterina Cannon ., PA-C) Assessment and Plan 51 y/o male with a history of stage 3 lung cancer, DM II, HTN, seizure disorder , anxiety/depression, gastroparesis and GERD who presents s/p intrathecal pain pump placement with Dr. Hope on 12/25 for medical management. S/p intrathecal pain pump placement--POD #1 -Pain management per primary team Lung cancer, chronic pain--per pain management DM II--last HgbA1c checked 09/14/16 was 7.4 -Continue Lantus 25 units SC qhs -Insulin sliding scale -Check BSGs q ac and qhs HTN--stable -Continue Norvasc 10 mg PO qd and Lopressor 25 mg PO BID -BP had been elevated post operatively but now controlled prior to discharge, likely elevated secondary to pain Seizure disorder -Continue Keppra 750 mg PO BID Anxiety/depression -Continue Effexor 37.5 mg PO qd Gastroparesis, GERD -Continue Reglan 10 mg PO ACHS prn and Phenergan 25 mg OK q4h prn -Continue Protonix 40 mg PO qd Pt. is stable from a medical standpoint, we will sign off. Clear for discharge as per primary team. (Ekaterina Cannon ., PA-C) Attending Consult Note & Attestation: Pt seen/examined, chart reviewed, care plan d/w CHARLI Cannon. I agree w/ the cortes components of her documentation. Pt with ongoing GI issues - had emesis sometime last night and then again following lunch today. He reports he vomits "EVERY DAY" at home due to his gastroparesis. States "nothing works". Takes reglan but not every day and has tried erythromycin without any change in symptoms. Had a gastric stimulator device placed at a hospital in [facility] for his gastroparesis but this was not helpful either. He reports that he will sometimes use phenergan suppositories or zofran by mouth for symptoms not relieved by his reglan. He did have a bowel movement 2 days ago and again this AM. VSS, afebrile gen - NAD mouth - MMM neck - no JVD heart - RRR lungs - CTA b/l abd - soft, ND, NT, BS+, dressing in place just to right of midline; gastric stimulator device present LUQ ext - no edema KUB x-ray - food particles/residue in stomach; bowel gas pattern nondistended ( my reading); air to the rectum Cr 1.4 (baseline) Hb 9.5 FSBS <200 most readings A/P: 1. s/p intrathecal pain pump implantation, POD #1 - for chronic neuropathy and cancer-related pain 2. severe gastroparesis at baseline with daily emesis at home - unresponsive to meds & gastric stimulator device 3. diabetes 4. lung cancer We have encouraged the patient to take his reglan 10mg before meals/HS at home and to f/u with his GI physician to explore any other modalities to treat his severe gastroparesis. Clinically he did NOT have any evidence of ileus (passing flatus, had bowel movement today, etc). I believe his emesis was due to gastroparesis. Fortunately he was keeping liquids down today. He will need close GI follow-up as well as follow-up with pain management. I agree with home health for the next week or so to ensure his incision remains clean/intact, to encourage med compliance, and to keep tabs on his hydration/ gastroparesis/etc If he continues to keep liquids down reasonable to return home today with his usual reglan, phenergan, etc Jose Espinoza MD (Jose Espinoza MD)
--- NOTE | 2016-12-26 10:44 | Pain Management Progress Note ---
Pain Management Progress Note Date of Service Dec 26, 2016. Subjective Mr. Hamilton is a 51 year old white male with diabetic neuropathy and intractable pain secondary to lung cancer with metastasis. Patient had an intrathecal pump and catheter delivery system implanted on 12/25/2016 without complication. Patient continues to report a burning stabbing pain "all over". He states that there is moderate pain at the back incision site and mild pain along the abdominal incision site. Patient rates his pain a 7/10 currently. He did have one episode of vomiting last night because of increased pain, no other episodes since then. He is prescribed Fentanyl patch 75mcg/hr and Dilaudid 4mg TID for pain from his PCP. Patient states that there has been difficulty ambulating because of the increased pain. Last night he was able to walk a very short distance and had to lay down for the rest of the night as the pain in the low back was aggravated. Has been able to pass gas and urinate, no BM yet. Patient denies any current constitutional complaints, neurological symptoms, nausea, vomiting. Case discussed with Dr. Hernandez Objective Vital Signs: Last Vital Signs Documentation Date Time Temp Pulse Resp B/P (MAP) Pulse Ox O2 Delivery O2 Flow Rate FiO2 12/26/16 08:20 36.9 90 18 131/63 (85) 96 12/26/16 04:00 Room Air 12/25/16 19:45 100 12/25/16 19:43 3.0 Physical Exam: GENERAL: Mr. Hamilton is a 51 year old white male that appears older than his stated age. Speech and cognition is intact. Patient appears mildly anxious. ABDOMEN: Intrathecal pump is located in the RLQ of abdomen. There is no mobility. Mild edema. Mild diffuse tenderness. NEURO: CN II-XII grossly intact with no focal deficits noted. AAO x 3. SKIN: The incision site along the RLQ abdomen is 5 inches horizontally with Prineo bandage in place. There is mild bloody discharge noted on the gauze dressing. No erythema, redness, or purulent discharge. The vertical incision along the thoracolumbar region is 2-3 inches long with prineo overlying the incision. Incision is closed without any drainage, erythema, or warmth. Laboratory Laboratory Findings 12/26/16 08:50 Assessment 1. Intractable pain secondary to lung cancer with metastasis requiring the implantation of intrathecal pump and catheter delivery system 2. Diabetic neuropathy 3. Diabetes mellitus 4. Hypertension Recommendations 1. Dressings were changed and there does not appear to be any sign of infection or wound dehiscence. 2. Patient will discontinue the use of fentanyl patch. 3. Instructed to use Dilaudid 4 mg 3 times daily as needed for pain relief as prescribed by PCP. 4. Patient does have a one-week appointment and a two-week appointment for wound check and to likely adjust intrathecal pump dosing. Patient expressed concern with nursing on returning home today and I was contacted. Patient's incisions appear well and he has pain medication at home, he is stable for discharge. He is agreeable to go home with home health visiting him for dressing changes daily.
[2016-12-26] MEDS: LACTATED RINGER'S 1000ML 1,000 ML IV SCH (11:47)
[2016-12-26] MEDS: INSULIN ASPART 100 UNITS/ML 3 ML PEN SC SCH ×2 (11:53→17:09)
[2016-12-26] MEDS ORDERED: METOCLOPRAMIDE HCL INJ 5 MG/ML 2 ML VIAL IV SCH (12:00)
--- NOTE | 2016-12-26 14:52 | DIAGNOSTIC IMAGING REPORT ---
KUB HISTORY: eval for severe constipation COMPARISON: KUB 09/06/2016. FINDINGS: Multiple nondilated gas-filled loops of large and small bowel seen throughout the abdomen. There is a debris-filled stomach which is mildly distended. Right lower quadrant pain pump. The tubing is not well-visualized but appears to be grossly intact. There is a left-sided gastric stimulator device. No renal calculi. No ureteral calculi. No pneumoperitoneum or pneumatosis. There is a small amount of stool within the colon. IMPRESSION: 1. A mildly distended debris-filled stomach. 2. Multiple nondilated gas-filled loops of large and small bowel seen throughout the abdomen. This could represent a mild ileus. No evidence for bowel obstruction. 3. Small amount of stool seen throughout the colon. Electronically signed by: Danilo Langley M.D. 12/26/2016 2:51 PM Dictated Date/Time: 12/26/2016 2:49 PM
[2016-12-26] MEDS ORDERED: METOCLOPRAMIDE HCL INJ 5 MG/ML 2 ML VIAL IV. SCH (16:15)
--- NOTE | 2016-12-31 16:13 | Discharge Summary ---
Discharge Summary Date of Service Dec 31, 2016. Discharge Summary Admission Date: Dec 25, 2016 at 15:55 Discharge Date: Dec 26, 2016 Discharge Disposition: Home with services Primary Diagnosis: Chronic intractable pain secondary to lung cancer with metastasis Secondary Diagnoses/Problems: Medical Problems: (1) Acute kidney injury Status: Acute (2) Altered mental status Status: Acute (3) Anemia Status: Acute (4) Chronic pain Status: Acute (5) Dehydration Status: Acute (6) Dehydration Status: Acute (7) Dehydration Status: Acute (8) Dehydration Status: Acute (9) Diabetes mellitus with hyperglycemia Status: Acute (10) Failure of outpatient treatment Status: Acute (11) Hypomagnesemia Status: Acute (12) Hypomagnesemia Status: Acute (13) Intractable vomiting Status: Acute (14) Intractable vomiting Status: Acute (15) Orthostatic hypotension Status: Acute (16) Vomiting Status: Acute (17) Vomiting Status: Acute Procedures: Implantation of intrathecal pump and catheter delivery system Consultations: hospitalist Pending Studies/Follow-Up: Follow up in the office in 1 week and 2 weeks for wound check Discharge Instructions Last Recorded Wt (Kilograms): 78.100 Activity Recommendations: lifting limitation (no more than 5 10 lbs), shower/ bathe limit (No shower or bath x 3 days) Diet At Discharge: Diabetic Allergies: Coded Allergies: BEE STING (Verified Allergy, Mild, SWELLING AT SITE, SOB, 12/19/16) Penicillins (Unverified Allergy, Unknown, "SINCE "-Amoxicillin, ) Home Health Services: home health agency (for daily dressing changes) Special Care: Call your doctor if: * Temperature above 101 degrees * Pain not relieved by pain medicine ordered * There is increased drainage or redness from any incision * You have any unanswered questions or concerns. Avoid all tobacco products. If you need help to stop smoking, call [place]'s FREE QUITLINE at . This is a free call. Hospital Course Patient was admitted for 1 day for the implantation of an intrathecal pump and catheter delivery system containing hydromorphone regarding chronic intractable pain secondary to lung cancer with metastasis. Patient tolerated the procedure well. He will discontinue Fentanyl patches and use oral Dilaudid as need for breakthrough pain. We will have the patient in the office at week one and week two for wound check and possible dosage increase. Total time spent on discharge = 30 This includes examination of the patient, discharge planning, medication reconciliation, and communication with other providers.
[2017-01-14] MEDS ORDERED: VNTHFA/IN INH (09:25)
[2017-01-14] MEDS ORDERED: NRN/600 PO (09:25)
[2017-01-14] MEDS ORDERED: AMLO-114 PO (09:25)
== END 2016-12-26 15:15 | disposition home or self-care (01) ==
LOC: C.ACU 06:52 → C.2E 15:55 → ENRESERV 16:13
PROVIDERS: ADMIT Anesthesiology; ATTEND Anesthesiology
DX: G89.3 Neoplasm related pain (acute) (chronic) (principal); C34.90 Malignant neoplasm of unspecified part of unspecified bronchus or lung; C79.9 Secondary malignant neoplasm of unspecified site; E11.40 Type 2 diabetes mellitus with diabetic neuropathy, unspecified; I10 Essential (primary) hypertension; F11.20 Opioid dependence, uncomplicated; E11.43 Type 2 diabetes mellitus with diabetic autonomic (poly)neuropathy; K21.9 Gastro-esophageal reflux disease without esophagitis; K50.90 Crohn's disease, unspecified, without complications; Z97.8 Presence of other specified devices; Z79.82 Long term (current) use of aspirin; Z79.52 Long term (current) use of systemic steroids; Z79.4 Long term (current) use of insulin; G40.909 Epilepsy, unspecified, not intractable, without status epilepticus; F41.9 Anxiety disorder, unspecified; F32.9 Major depressive disorder, single episode, unspecified

== ENCOUNTER 2017-01-14 05:12 | Inpatient (IN) | payer OTHER ==
[~2017-01-14] VITALS: Ht 172.7 cm; Wt 78.2 kg
[2017-01-14] VITALS (8 sets, daily range): BP systolic 90–176; BP diastolic 49–103; PULSE 86–99; TEMP 36.7–37.1; O2SAT 96–100; BMI 26.2
[~2017-01-14 05:12] MED LIST changes: -CEFAZOLIN 2000 MG/60 ML D5W IV SCH; -FENT75DI2 EX; -GABA-113 PO; -LACTATED RINGER'S 1000ML 1,000 ML IV SCH
[2017-01-14] MEDS ORDERED: ONDANSETRON INJ 2 MG/ML 2 ML VIAL IV STA (05:57)
[2017-01-14] MEDS ORDERED: SODIUM CHLORIDE 0.9% 1000ML 1,000 ML IV STA (05:57)
[2017-01-14] MEDS ORDERED: MoRPHine SULFATE 4 MG/ML 1 ML CARP\\VIAL IV STA (05:57)
--- NOTE | 2017-01-14 06:03 | EMERGENCY ROOM VISIT NOTE ---
History First contact with patient: 05:49 Chief Complaint: VOMITING Stated Complaint: VOMITING,INCISION LEAKING Nursing Triage Summary: Patient states recently had a intracecal pump placed. Incisions to mid abdomen and mid back. Incisions red and raised. Some yellow drainage to the incision site. History of Present Illness The patient is a 51 year old male who presents to the Emergency Room with complaints of abdominal pain and drainage from incision site. The patient has lung cancer. He has had a lobectomy and chemotherapy which was stopped in August. The patient had intrathecal pump placed on December [address] Ford. He states he has been doing well until one week ago when he developed vomiting. He reports abdominal bloating and pain. He rates his discomfort a 7/10. The patient states that he has had drainage from both the incision sites one on his abdomen and one on his low back. He denies any fevers. He denies chest pain or trouble breathing. He reports diarrhea which is not atypical. He denies any urinary symptoms. His primary cancer is lung. He denies any known metastasis. He has not had a recent PET scan. Review of Systems A 10 system review of systems was completed with positives and pertinent negatives listed in the HPI. Past Medical/Surgical History Medical Problems: (1) Chronic pain (2) Confusion (3) Diabetes mellitus, type II (4) Diabetic polyneuropathy (5) Facial cellulitis (6) Gastroparesis (7) HTN (hypertension) (8) Intractable nausea and vomiting (9) Lung cancer (10) Nausea and vomiting (11) Neutropenia (12) Orthostatic hypotension Surgical Problems: (1) H/O colonoscopy (2) H/O esophagogastroduodenoscopy (3) History of cholecystectomy (4) History of tonsillectomy and adenoidectomy (5) Hx of total knee arthroplasty (6) S/P lobectomy of lung Family History Cancer Diabetes mellitus Hypertension Social History Smoking Status: Never Smoker Alcohol Use: none Drug Use: none Marital Status: Housing Status: lives with family Occupation Status: disabled Current/Historical Medications Scheduled Amlodipine (Norvasc), 10 MG PO QAM Aspirin (Aspirin Ec), 81 MG PO QAM Folic Acid (Folvite), 1 TAB PO QAM Insulin Aspart (Novolog), 5 UNITS SC ACHS Insulin Glargine (Lantus), 25 UNITS SC QPM Levetiracetam (Keppra), 750 MG PO BID Magnesium Chloride (Slow-Mag Tab), 64 MG PO BID Metoprolol Tartrate (Lopressor) (Lopressor), 25 MG PO BID Multiple Vitamin (Multivitamins), 1 CAP PO QAM Pantoprazole (Protonix), 40 MG PO QAM Venlafaxine Hcl (Effexor Xr), 37.5 MG PO QAM Scheduled PRN Acetaminophen (Tylenol), 650 MG PO TID PRN for Pain Epinephrine (Epipen), 0.3 MG IM UD PRN for ALLERGIC REACTION Hydromorphone Hcl (Dilaudid), 8 MG PO Q8 PRN for Pain Metoclopramide Hcl (Reglan), 10 MG PO ACHS PRN for Nausea Ondansetron (Ondansetron HCl), 8 MG PO Q8 PRN for Nausea Promethazine Hcl (Phenergan Suppository), 25 MG WA Q4H PRN for Nausea or Vomiting Physical Exam Vital Signs Date Time Temp Pulse Resp B/P (MAP) Pulse Ox O2 Delivery O2 Flow Rate FiO2 01/14/17 08:19 4 20 173/96 94 Room Air 01/14/17 07:10 92 20 186/99 94 Room Air 01/14/17 05:47 95 01/14/17 05:15 36.7 97 18 154/102 100 Room Air Physical Exam VITALS: Vitals are noted on the nurse's note and reviewed by myself. Vital signs stable. GENERAL: This is a 51-year-old maleno acute distress, nondiaphoretic, well- developed well-nourished. SKIN: There is an incision to the right lower abdomen abdominal wall. There is drainage of clear fluid. There is no significant erythema. There is no significant bleeding. There is erythema, scab and tenderness over the incision at the lumbar spine. There is moderate tenderness to palpation at the site. There is no tenting of the skin. Capillary reflex less than 2 seconds. HEAD: Normocephalic atraumatic. EARS: The external ears are normal in appearance. EYES: Pupils equal round and reactive to light and accommodation. Conjunctivae without injection, sclerae without icterus. Extraocular movements intact. NOSE: Patent, turbinates without inflammation or discharge. MOUTH: Mucous membranes moist. Tonsils are not enlarged. Pharynx without erythema or exudate. Uvula midline. Airway patent. Tongue does not deviate. NECK: Supple without nuchal rigidity. No lymphadenopathy. No thyromegaly. Cervical spine is nontender. No JVD. HEART: Regular rate and rhythm without murmurs gallops or rubs. LUNGS: Diminished throughout. No retractions or accessory muscle use. ABDOMEN: Positive bowel sounds x 4. There is incision as described as above. There is moderate tenderness to palpation in the area of the incision. MUSCULOSKELETAL: No muscle atrophy, erythema, or edema noted. Full range of motion without joint tenderness in all extremities. There is tenderness to palpation over the incision on the lumbar spine. Normal gait. Strength 5/5 throughout. NEURO: Patient was alert and oriented to person place and time. No focal neurological deficits. Medical Decision & Procedures ER Provider Diagnostic Interpretation: [~ rep ct add3]] ABD/PELVIS IV CONTRAST ONLY CLINICAL HISTORY: 51 years-old Male presenting with abdominal pain, recent intratheal pump placement on 12/25 with swelling/discharge from incisions, vomiting for one week. TECHNIQUE: Multidetector CT of the abdomen and pelvis was performed after the administration of intravenous contrast. IV contrast: 93 mL of Optiray 320. A dose lowering technique was used consistent with the principles of ALARA (as low as reasonably achievable). COMPARISON: 08/15/2016. CT DOSE (mGy.cm): The estimated cumulative dose is 498.77 inclusive of the lumbar spine. FINDINGS: Labor Representative topogram: 2 implanted medical devices project over the abdomen. Cholecystectomy clips noted. Lung bases: Lung bases clear. No pericardial or pleural effusion. Liver: Normal morphology. No liver lesion. Patent hepatic vasculature. Biliary: No intrahepatic or extrahepatic biliary ductal dilatation. Gallbladder surgically absent. Pancreas: Severe parenchymal atrophy. Spleen: Normal. Adrenal glands: Normal. Kidneys and ureters: Normal. No hydronephrosis. Bladder: Marked circumferential bladder wall thickening in the under distended bladder. Pelvic organs: Prostate enlargement likely secondary to benign prostatic hyperplasia. Bowel: Apparent circumferential distal esophageal wall thickening. Remainder of bowel is grossly normal the absence of oral contrast. No bowel obstruction. Peritoneal cavity: No free fluid or intraperitoneal gas. Vasculature: Atherosclerosis of the normal caliber abdominal aorta. IVC patent. Lymph nodes: No enlarged lymph nodes in the abdomen or pelvis. Abdominal wall: Implanted device is noted in the subcutaneous tissue of the ventral right and left abdominal wall. The right-sided implanted device is surrounded by a rim-enhancing fluid collection measuring nearly 8 cm. A lead projects from the device and course along the right lateral abdominal wall towards the lumbar region. Rim-enhancing fluid along the course of the lead is also apparent. A 2 cm fluid collection is also apparent in the left paraspinal musculature at the level of L2-3, where the lead enters the spinal canal. Evaluation for an epidural collection is limited. The left-sided implanted device has 2 leads that project along the anterior peritoneal cavity towards the gastric body. No associated fluid collection. Musculoskeletal: No osseous erosion or destructive osseous lesion is apparent. Mild degenerative change noted. IMPRESSION: 1. Rim-enhancing 8 cm fluid collection surrounding the implanted device in the right ventral abdominal wall consistent with abscess. Rim-enhancing fluid also surrounds the lead throughout its course along the right lateral abdominal wall and into the upper lumbar region. Focal 2 cm abscess in the left paraspinal musculature. 2. Marked circumferential bladder wall thickening. This could suggest neurogenic bladder or severe chronic outlet obstruction possibly due to prostatomegaly, although evaluation for underlying bladder wall irregularity/soft tissue neoplasm is limited given underdistention in the severe degree of bladder wall thickening. Urologic consultation could be considered if clinically warranted. 3. Apparent circumference of distal esophageal wall thickening. This could suggest esophagitis. If clinically warranted, fluoroscopic upper GI exam could be obtained for further evaluation. [~ rep ct add3]] CT LUMBAR SPINE WITH CONTRAST CT DOSE: 498.77 mGy.cm CLINICAL HISTORY: back pain, recent intrathecal pump with swelling/discharge TECHNIQUE: The patient was scanned following the administration of 93 cc of Optiray 320. Helical images were acquired in the axial plane. Sagittal and coronal reformatted images were acquired. A dose lowering technique was utilized adhering to the principles of ALARA. COMPARISON STUDY: None. FINDINGS: Intrathecal catheter is visualized. The catheter enters the spinal canal at the L2-3 level. The catheter extends cephalad to the T11-12 level. L1-2 level: There is no evidence of disc bulge or focal herniation. There is no evidence of spinal or foraminal stenosis L2-3 level: There is a mild circumferential disc bulge. There is mild spinal stenosis. There is no significant foraminal narrowing L3-4 level: There is a mild circumferential disc bulge. There is mild spinal stenosis. There is no significant foraminal narrowing L4-5 level: There is a mild circumferential disc bulge. There is mild spinal stenosis. There is no significant foraminal narrowing L5-S1 level: There is no evidence of significant disc bulge or focal herniation. There is no evidence of spinal or foraminal stenosis area There is a small left pleural effusion. There is mild posterior edema. In the left posterior paraspinal region adjacent to the L3 spinous process, there is a fluid collection measuring 32 x 22 x 18 mm. The catheter traverses this fluid collection. Diagnostic considerations for the fluid collection include postsurgical seroma, abscess, or catheter leakage. Within the subcutaneous soft tissues at the L2-3 level, there is a 7 mm faintly opaque foreign body. There is surrounding soft tissue thickening. This structure was present on a prior abdominal CT scan performed August 2016. IMPRESSION: 1. Multilevel disc bulges with mild spinal stenosis at the L2-3, L3-4, and L4-5 levels. 2. Intrathecal catheter which enters the spinal canal the L2-3 level 3. Posterior lateral to the L3 spinous process is a 32 x 22 x 18 mm fluid collection. The catheter traverses fluid collection. Diagnostic considerations include postsurgical seroma, abscess, or catheter leakage 4. No change in the appearance of a 7 mm faintly opaque foreign body within the subcutaneous soft tissues at the L2-3 level in the midline. 5. Small left pleural effusion Laboratory Results 01/14/17 06:00 Red Blood Count 3.71, Mean Corpuscular Volume 82.2, Mean Corpuscular Hemoglobin 29.1, Mean Corpuscular Hemoglobin Concent 35.4, Mean Platelet Volume 8.7, Neutrophils (%) (Auto) 68.0, Lymphocytes (%) (Auto) 18.6, Monocytes (%) (Auto) 10.9, Eosinophils (%) (Auto) 2.1, Basophils (%) (Auto) 0.2, Neutrophils # (Auto ) 3.89, Lymphocytes # (Auto) 1.06, Monocytes # (Auto) 0.62, Eosinophils # (Auto ) 0.12, Basophils # (Auto) 0.01 01/14/17 06:00 Test 01/14/17 06:00 01/14/17 06:31 White Blood Count 5.71 K/uL (4.8-10.8) Red Blood Count 3.71 M/uL (4.7-6.1) Hemoglobin 10.8 g/dL (14.0-18.0) Hematocrit 30.5 % (42-52) Mean Corpuscular Volume 82.2 fL (80-100) Mean Corpuscular Hemoglobin 29.1 pg (25-34) Mean Corpuscular Hemoglobin Concent 35.4 g/dl (32-36) Platelet Count 246 K/uL (130-400) Mean Platelet Volume 8.7 fL (7.4-10.4) Neutrophils (%) (Auto) 68.0 % Lymphocytes (%) (Auto) 18.6 % Monocytes (%) (Auto) 10.9 % Eosinophils (%) (Auto) 2.1 % Basophils (%) (Auto) 0.2 % Neutrophils # (Auto) 3.89 K/uL (1.4-6.5) Lymphocytes # (Auto) 1.06 K/uL (1.2-3.4) Monocytes # (Auto) 0.62 K/uL (0.11-0.59) Eosinophils # (Auto) 0.12 K/uL (0-0.5) Basophils # (Auto) 0.01 K/uL (0-0.2) RDW Standard Deviation 38.6 fL (36.4-46.3) RDW Coefficient of Variation 13.1 % (11.5-14.5) Immature Granulocyte % (Auto) 0.2 % Immature Granulocyte # (Auto) 0.01 K/uL (0.00-0.02) Prothrombin Time 11.4 SECONDS (9.0-12.0) Prothromb Time International Ratio 1.1 (0.9-1.1) Activated Partial Thromboplast Time 25.0 SECONDS (21.0-31.0) Partial Thromboplastin Ratio 1.0 Anion Gap 6.0 mmol/L (3-11) Est Creatinine Clear Calc Drug Dose 60.4 ml/min Estimated GFR () 66.9 Estimated GFR (Non- 57.8 BUN/Creatinine Ratio 8.9 (10-20) Calcium Level 9.5 mg/dl (8.5-10.1) Total Bilirubin 0.3 mg/dl (0.2-1) Aspartate Amino Transf (AST/SGOT) 16 U/L (15-37) Alanine Aminotransferase (ALT/SGPT) 13 U/L (12-78) Alkaline Phosphatase 91 U/L (45-117) Total Protein 8.2 gm/dl (6.4-8.2) Albumin 3.5 gm/dl (3.4-5.0) Globulin 4.7 gm/dl (2.5-4.0) Albumin/Globulin Ratio 0.7 (0.9-2) Lipase 47 U/L (73-393) Lactic Acid Level 0.9 mmol/L (0.4-2.0) Medications Administered Medications (Trade) Dose Ordered Sig/Cal Route Start Time Stop Time Status Last Admin Dose Admin Sodium Chloride 1,000 ml @ 999 mls/hr Q1H1M STAT IV 01/14/17 05:57 01/14/17 06:57 DC 01/14/17 05:57 999 MLS/HR Ondansetron HCl (Zofran Inj) 4 mg NOW STAT IV 01/14/17 05:57 01/14/17 06:00 DC 01/14/17 06:16 4 MG Hydromorphone HCl (Dilaudid Inj) 1 mg NOW STAT IV 01/14/17 06:05 01/14/17 06:06 DC 01/14/17 06:16 1 MG Hydromorphone HCl (Dilaudid Inj) 1 mg NOW STAT IV 01/14/17 08:01 01/14/17 08:02 DC 01/14/17 08:08 1 MG ED Course The patient was seen and examined. Previous visits were reviewed. The patient does not have fever or leukocytosis. His potassium is 3.3. Lactic acid is not elevated. Lipase is normal. INR is 1.1. The patient was hydrated normal saline solution He was given 4 mg IV Zofran He will given a total of 3 mg IV Dilaudid IV vancomycin was also ordered CT scan of the abdomen and pelvis and lumbar spine were obtained as above. The patient seems to have abscess surrounding the intrathecal pump that extends along the track of the lead. There is also a small abscess in the soft tissues of the spine. The patient is afebrile. He is not tachycardic and does not have a leukocytosis. There is also suggestion of esophagitis and possibly thickening of the bladder lining. This will need further evaluation as well. I discussed the case with Brenna Mancilla PA-C who reviewed the case with Dr. Hernandez. They recommend admission to the hospitalist service and consult their service to remove the pump. I discussed the case with the [facility] hospitalist service and they will evaluate the patient. The case was discussed with Dr. Cha who agrees with the assessment and treatment plan. Medical Decision DIFFERENTIAL DIAGNOSIS: Hepatitis, cholecystitis, cholangitis, biliary colic, pancreatitis, pneumonia, subdiaphragmatic abscess, appendicitis, inguinal hernia , nephrolithiasis, inflammatory bowel disease, mesenteric adenitis, peptic ulcer disease, GERD, gastritis, pancreatitis, myocardial infarction, pericarditis, ruptured aortic aneurysm, appendicitis, gastroenteritis, bowel obstruction, splenic infarct, diverticulitis, mesenteric ischemia, metabolic, peritonitis, among others. Medication Reconcilliation Current Medication List: was personally reviewed by me Blood Pressure Screening Patient's blood pressure: Elevated blood pressure Blood pressure disposition: Elevated BP felt to be situational Impression Primary Impression: Intrathecal pump infection Departure Information Dispostion Admitted as an inpatient Referrals Bran Burgess M.D. (PCP) Patient Instructions My [facility]
[2017-01-14] MEDS ORDERED: HYDROmorphone INJ 1 MG/ML SYR IV STA ×3 (06:05→08:14)
[2017-01-14 06:15] LABS: BASO % 0.2 %; BASO ABS # 0.01 K/uL (0-0.2); COMPLETE YES; EOS % 2.1 %; HEMATOCRIT 30.5 % (42-52); IG% 0.2 %; LYMPH % 18.6 %; LYMPH ABS # 1.06 K/uL (1.2-3.4); MEAN CELL VOLUME 82.2 fL (80-100); MEAN CORPUSCULAR HEMOGLOBIN 29.1 pg (25-34); MEAN CORPUSCULAR HGB CONC 35.4 g/dl (32-36); MEAN PLATELET VOLUME 8.7 fL (7.4-10.4); MONO % 10.9 %; PLATELET COUNT 246 K/uL (130-400); RED BLOOD COUNT 3.71 M/uL (4.7-6.1); WHITE BLOOD COUNT 5.71 K/uL (4.8-10.8)
[2017-01-14 06:30] LABS: INR 1.1 (0.9-1.1); PROTHROMBIN TIME (PATIENT) 11.4 SECONDS (9.0-12.0)
[2017-01-14 06:37] LABS: BUN/CREATININE RATIO 8.9 (10-20); CALCIUM 9.5 mg/dl (8.5-10.1); CREATININE 1.4 mg/dl (0.60-1.40); POTASSIUM 3.3 mmol/L (3.5-5.1)
[2017-01-14 06:40] LABS: ALB/GLOB RATIO 0.7 (0.9-2)
[2017-01-14] MEDS ORDERED: FENTANYL CITRATE 100 MCG 2 ML CARP IV ONE (07:23)
[2017-01-14] MEDS ORDERED: MIDAZOLAM HCL 5 MG/ML 1 ML VIAL IV ONE (07:23)
[2017-01-14] MEDS ORDERED: OPTIRAY 320 IV PRN (07:30)
--- NOTE | 2017-01-14 07:36 | DIAGNOSTIC IMAGING REPORT ---
ABD/PELVIS IV CONTRAST ONLY CLINICAL HISTORY: 51 years-old Male presenting with abdominal pain, recent intratheal pump placement on 12/25 with swelling/discharge from incisions, vomiting for one week. TECHNIQUE: Multidetector CT of the abdomen and pelvis was performed after the administration of intravenous contrast. IV contrast: 93 mL of Optiray 320. A dose lowering technique was used consistent with the principles of ALARA (as low as reasonably achievable). COMPARISON: 08/15/2016. CT DOSE (mGy.cm): The estimated cumulative dose is 498.77 inclusive of the lumbar spine. FINDINGS: Slot Supervisor topogram: 2 implanted medical devices project over the abdomen. Cholecystectomy clips noted. Lung bases: Lung bases clear. No pericardial or pleural effusion. Liver: Normal morphology. No liver lesion. Patent hepatic vasculature. Biliary: No intrahepatic or extrahepatic biliary ductal dilatation. Gallbladder surgically absent. Pancreas: Severe parenchymal atrophy. Spleen: Normal. Adrenal glands: Normal. Kidneys and ureters: Normal. No hydronephrosis. Bladder: Marked circumferential bladder wall thickening in the under distended bladder. Pelvic organs: Prostate enlargement likely secondary to benign prostatic hyperplasia. Bowel: Apparent circumferential distal esophageal wall thickening. Remainder of bowel is grossly normal the absence of oral contrast. No bowel obstruction. Peritoneal cavity: No free fluid or intraperitoneal gas. Vasculature: Atherosclerosis of the normal caliber abdominal aorta. IVC patent. Lymph nodes: No enlarged lymph nodes in the abdomen or pelvis. Abdominal wall: Implanted device is noted in the subcutaneous tissue of the ventral right and left abdominal wall. The right-sided implanted device is surrounded by a rim-enhancing fluid collection measuring nearly 8 cm. A lead projects from the device and course along the right lateral abdominal wall towards the lumbar region. Rim-enhancing fluid along the course of the lead is also apparent. A 2 cm fluid collection is also apparent in the left paraspinal musculature at the level of L2-3, where the lead enters the spinal canal. Evaluation for an epidural collection is limited. The left-sided implanted device has 2 leads that project along the anterior peritoneal cavity towards the gastric body. No associated fluid collection. Musculoskeletal: No osseous erosion or destructive osseous lesion is apparent. Mild degenerative change noted. IMPRESSION: 1. Rim-enhancing 8 cm fluid collection surrounding the implanted device in the right ventral abdominal wall consistent with abscess. Rim-enhancing fluid also surrounds the lead throughout its course along the right lateral abdominal wall and into the upper lumbar region. Focal 2 cm abscess in the left paraspinal musculature. 2. Marked circumferential bladder wall thickening. This could suggest neurogenic bladder or severe chronic outlet obstruction possibly due to prostatomegaly, although evaluation for underlying bladder wall irregularity/soft tissue neoplasm is limited given underdistention in the severe degree of bladder wall thickening. Urologic consultation could be considered if clinically warranted. 3. Apparent circumference of distal esophageal wall thickening. This could suggest esophagitis. If clinically warranted, fluoroscopic upper GI exam could be obtained for further evaluation. Electronically signed by: Ronnell Renee M.D. 01/14/2017 7:35 AM Dictated Date/Time: 01/14/2017 7:23 AM
--- NOTE | 2017-01-14 07:43 | DIAGNOSTIC IMAGING REPORT ---
CT LUMBAR SPINE WITH CONTRAST CT DOSE: 498.77 mGy.cm CLINICAL HISTORY: back pain, recent intrathecal pump with swelling/discharge TECHNIQUE: The patient was scanned following the administration of 93 cc of Optiray 320. Helical images were acquired in the axial plane. Sagittal and coronal reformatted images were acquired. A dose lowering technique was utilized adhering to the principles of ALARA. COMPARISON STUDY: None. FINDINGS: Intrathecal catheter is visualized. The catheter enters the spinal canal at the L2-3 level. The catheter extends cephalad to the T11-12 level. L1-2 level: There is no evidence of disc bulge or focal herniation. There is no evidence of spinal or foraminal stenosis L2-3 level: There is a mild circumferential disc bulge. There is mild spinal stenosis. There is no significant foraminal narrowing L3-4 level: There is a mild circumferential disc bulge. There is mild spinal stenosis. There is no significant foraminal narrowing L4-5 level: There is a mild circumferential disc bulge. There is mild spinal stenosis. There is no significant foraminal narrowing L5-S1 level: There is no evidence of significant disc bulge or focal herniation. There is no evidence of spinal or foraminal stenosis area There is a small left pleural effusion. There is mild posterior edema. In the left posterior paraspinal region adjacent to the L3 spinous process, there is a fluid collection measuring 32 x 22 x 18 mm. The catheter traverses this fluid collection. Diagnostic considerations for the fluid collection include postsurgical seroma, abscess, or catheter leakage. Within the subcutaneous soft tissues at the L2-3 level, there is a 7 mm faintly opaque foreign body. There is surrounding soft tissue thickening. This structure was present on a prior abdominal CT scan performed August 2016. IMPRESSION: 1. Multilevel disc bulges with mild spinal stenosis at the L2-3, L3-4, and L4-5 levels. 2. Intrathecal catheter which enters the spinal canal the L2-3 level 3. Posterior lateral to the L3 spinous process is a 32 x 22 x 18 mm fluid collection. The catheter traverses fluid collection. Diagnostic considerations include postsurgical seroma, abscess, or catheter leakage 4. No change in the appearance of a 7 mm faintly opaque foreign body within the subcutaneous soft tissues at the L2-3 level in the midline. 5. Small left pleural effusion Electronically signed by: Bruce Salamanca M.D. 01/14/2017 7:42 AM Dictated Date/Time: 01/14/2017 7:26 AM
[2017-01-14] MEDS ORDERED: VANCOMYCIN 1GM/270ML NSS IV STA (08:09)
[2017-01-14] MEDS ORDERED: VANCOMYCIN INJ 1,000 MG in SODIUM CHLORIDE 0.9% 250ML 250 ML IV SCH (09:15)
[2017-01-14] MEDS ORDERED: MAGNESIUM HYDROXIDE SUSP 30 ML UDC PO PRN (09:15)
[2017-01-14] MEDS ORDERED: PROMETHAZINE HCL 25 MG SUPP PR PRN (09:15)
[2017-01-14] MEDS ORDERED: ALUMINUM/MAGNESIUM/SIMETH (MAALOX MAX) 30 ML UDC PO PRN (09:15)
[2017-01-14] MEDS ORDERED: SODIUM CHLORIDE 0.9% 1000ML 1,000 ML IV SCH (09:15)
[2017-01-14] MEDS ORDERED: ACETAMINOPHEN 325 MG TAB PO PRN (09:15)
[2017-01-14] MEDS ORDERED: EPINEPHRINE ADULT AUTO-INJECT 0.3 MG SYR IM PRN (09:15)
[2017-01-14] MEDS ORDERED: VNTHFA/IN INH (09:25)
[2017-01-14] MEDS ORDERED: NRN/600 PO (09:25)
[2017-01-14] MEDS ORDERED: AMLO-114 PO (09:25)
[2017-01-14] MEDS ORDERED: ALBUTEROL HFA 8 GM INHALER INH PRN (09:30)
[2017-01-14 09:44] LABS: MANUAL MICROSCOPIC REQUIRED? NO; REVIEW REQ? NO; URINE APPEARANCE CLEAR (CLEAR); URINE BILIRUBIN NEG (NEG); URINE COLOR YELLOW; URINE EPITHELIAL CELL AUTO 20-30 /lpf (0-5); URINE NITRITE NEG (NEG); URINE PH 6.5 (4.5-7.5); URINE SPECIFIC GRAVITY 1.034 (1.000-1.030); UROBILINOGEN NEG (NEG); ZZUR CULT IF INDIC CLEAN CATCH NO
[2017-01-14] MEDS ORDERED: GLUCAGON FOR INJ 1 MG VIAL SQ PRN (10:00)
[2017-01-14] MEDS ORDERED: DEXTROSE 50% 50 ML SYR IV PRN (10:00)
[2017-01-14] MEDS ORDERED: GLUCOSE 40% GEL 15 GM TUBE PO PRN (10:00)
[2017-01-14] MEDS ORDERED: GLUCOSE 10 TABS/TUBE PO PRN (10:00)
[2017-01-14] MEDS ORDERED: VANCOMYCIN CONSULT ACTIVE PRN ×2 (10:15→11:15)
[2017-01-14] MEDS ORDERED: VANCOMYCIN 1GM/270ML NSS IV ONE (10:30)
[2017-01-14] MEDS ORDERED: DEXAMETHASONE SOD INJ 4 MG/ML VIAL ONE (11:13)
[2017-01-14] MEDS ORDERED: HYDROmorphone INJ 2 MG/ML SYR/VIAL ONE ×2 (11:13→15:14)
[2017-01-14] MEDS ORDERED: LARYING-O-JET KIT (LTA) ONE ×2 (11:13)
[2017-01-14] MEDS ORDERED: PROPOFOL IV EMULSION 10 MG/ML 20 ML VIAL IV ONE (11:13)
[2017-01-14] MEDS ORDERED: FENTANYL CITRATE INJ 50 MCG/1 ML 2 ML VIAL ONE (11:13)
[2017-01-14] MEDS ORDERED: ONDANSETRON INJ 2 MG/ML 2 ML VIAL ONE (11:13)
[2017-01-14] MEDS ORDERED: LIDOCAINE HCL 2% 2 ML VIAL (20MG/ML) ONE (11:13)
[2017-01-14] MEDS ORDERED: CISATRACURIUM BESYLATE IV SOLN 2 MG/ML 10 ML VIAL ONE (11:15)
[2017-01-14] MEDS ORDERED: SUCCINYLCHOLINE CHLORIDE 20 MG/ML 10 ML VIAL IV ONE (11:15)
[2017-01-14] MEDS ORDERED: VANCOMYCIN INJ 1,000 MG in SODIUM CHLORIDE 0.9% 250ML 250 ML IV ONE (11:15)
[2017-01-14] MEDS ORDERED: MIDAZOLAM HCL 1 MG/ML 2ML VIAL ONE (11:17)
[2017-01-14] MEDS: ONDANSETRON INJ 2 MG/ML 2 ML VIAL IV PRN (11:22)
[2017-01-14] MEDS: HYDROmorphone INJ 1 MG/ML SYR IV PRN ×3 (11:23→22:52)
--- NOTE | 2017-01-14 11:25 | Pharmacy Progress Note ---
Pharmacy Abx Initial Consult Date of Service Jan 14, 2017. Pharmacy Dosing Scope Date of Consult: 01/14/17 Consultation requested by: Dr. Saenz Pharmacy is consulted to initiate Vancomycin IV dosing therapy, order appropriate labs and adjust drug dose/frequency. Subjective The patient is a 51 year old male admitted on Jan 14, 2017 at 09:22. Objective Height (Feet): 5 Height (Inches): 8.00 Weight (Kilograms): 78.200 Vital Signs (Past 12Hrs) Vital Signs Past 12 Hours Date Time Temp Pulse Resp B/P (MAP) Pulse Ox O2 Delivery O2 Flow Rate FiO2 01/14/17 10:41 87 16 133/84 98 01/14/17 10:25 37.0 99 18 155/103 96 Room Air 01/14/17 09:55 90 20 122/84 98 Room Air 01/14/17 08:57 89 01/14/17 08:19 4 20 173/96 94 Room Air 01/14/17 07:10 92 20 186/99 94 Room Air 01/14/17 05:47 95 01/14/17 05:15 36.7 97 18 154/102 100 Room Air Lab Results (24Hrs) Laboratory Tests (24 Hours) Test 01/14/17 06:00 01/14/17 06:31 White Blood Count 5.71 K/uL (4.8-10.8) Red Blood Count 3.71 M/uL (4.7-6.1) L Hemoglobin 10.8 g/dL (14.0-18.0) L Hematocrit 30.5 % (42-52) L Mean Corpuscular Volume 82.2 fL (80-100) Mean Corpuscular Hemoglobin 29.1 pg (25-34) Mean Corpuscular Hemoglobin Concent 35.4 g/dl (32-36) Platelet Count 246 K/uL (130-400) Mean Platelet Volume 8.7 fL (7.4-10.4) Neutrophils (%) (Auto) 68.0 % Lymphocytes (%) (Auto) 18.6 % Monocytes (%) (Auto) 10.9 % Eosinophils (%) (Auto) 2.1 % Basophils (%) (Auto) 0.2 % Neutrophils # (Auto) 3.89 K/uL (1.4-6.5) Lymphocytes # (Auto) 1.06 K/uL (1.2-3.4) L Monocytes # (Auto) 0.62 K/uL (0.11-0.59) H Eosinophils # (Auto) 0.12 K/uL (0-0.5) Basophils # (Auto) 0.01 K/uL (0-0.2) Lactic Acid Level 0.9 mmol/L (0.4-2.0) Micro Results Date/Time Source Procedure Growth Status 01/14/17 09:29 Blood Blood Culture Pending Received 01/14/17 09:11 Blood Blood Culture Pending Received 01/14/17 06:00 Incision Site Abdomin, Right Lower Quadrant Gram Stain - Final Resulted 01/14/17 06:00 Incision Site Abdomin, Right Lower Quadrant Wound Culture Pending Resulted Risk Factors for Resistance * Immunocompromised (chronic steroid therapy, chemotherapy, immunomodulators) Assessment & Plan Assessment The patient is a 51 year old male who presents to the Emergency Room with complaints of abdominal pain and drainage from incision site. The patient has lung cancer. He has had a lobectomy and chemotherapy which was stopped in August. The patient had intrathecal pump placed on December [address] Ford. There is an abscess surrounding the intrathecal pump with extension on the lead. Plan Vancomycin for treatment of abscess surrounding intrathecal pump. Vancomycin IV * Loading dose: 2,000 mg (25 mg/kg). 1 gram vancomycin given in the ED and remaining 1 gram vancomycin given on the floor. * Maintenance dose: 1500 mg IV (20 mg/kg) every 12 hours * Goal trough level for abscess with concern for BOOM STICK MAN involvement : 15 to 20 mcg/ mL * Trough/Random level ordered for 01/15/17 @07:30. We will hold 8am dose on secondary to aggressive dosing and patient's history of fluctuating renal function. Pharmacy will continue to follow and will adjust dose/frequency as necessary. Thank you.
--- NOTE | 2017-01-14 11:43 | HISTORY & PHYSICAL EXAMINATION ---
DATE OF ADMISSION: 01/14/2017 CHIEF COMPLAINT: Leaky pain pump. HISTORY OF PRESENT ILLNESS: This is a 51-year-old male with past medical history significant for malignant neoplasm of the upper lobe of the left lung status post chemo, diabetes, diabetic gastroparesis, status post gastric pacemaker, history of hypertension, epilepsy, neurogenic bladder, neuropathy, who was recently in December of this year status post implantation of intrathecal pump for his chronic intractable pain from his metastatic lung cancer, comes because of leaking at the incision site. The patient says since the discharge, it was leaking a little bit, but for the last couple of days, it was leaking a lot and also having significant pain, so he came to the ER. He denies any fever, but says he has some chills and last night, he was having lot of nausea and vomiting. He vomited several times. Denies any abdominal pain, no constipation, on and off diarrhea, no blood in the stools, no blood in the urine. Normal bladder movements. Appetite was okay until this episode happened. No chest pain, no shortness of breath, no cough. No abdominal pain. He has occasional headaches, no blurred visions. Currently resting comfortably and hemodynamically stable. ALLERGIES: TO PENICILLINS AND BEE STINGS. PAST MEDICAL HISTORY: As mentioned above. PAST SURGICAL HISTORY: Colonoscopy, EGDs, knee arthroscopy, tonsillectomy, adenoidectomy, lymphadenectomy via thoracoscopy, placement of the pain pump. MEDICATIONS: The patient is on hydromorphone 8 mg p.o. q. 8 hours p.r.n., albuterol two puffs every 4 hours p.r.n., insulin sliding scale, Lantus 25 units at bedtime, Protonix 40 mg p.o. daily, Effexor XR 37.5 mg p.o. daily, Zofran 8 mg p.o. t.i.d. p.r.n., folic acid 1 mg p.o. daily, Reglan 10 mg p.o. ac and at bedtime p.r.n., amlodipine 5 mg p.o. daily, Keppra 750 mg p.o. b.i.d., metoprolol 25 mg p.o. b.i.d., Phenergan 25 mg p.o. q. 4 hours p.r.n., magnesium chloride 64 mg p.o. b.i.d., Flonase 2 sprays in to each nostril daily, dexamethasone prior to chemotherapy, gabapentin 600 mg p.o. t.i.d., Tylenol 1000 mg p.o. t.i.d., epinephrine p.r.n. allergic reaction, multivitamins p.o. daily, aspirin 81 mg p.o. daily. FAMILY HISTORY: Significant for father has diabetes. Mother had diabetes. Sister has renal cell carcinoma, aunt has bilateral lung transplant, cancer. SOCIAL HISTORY: , former smoker, quit in 2000. Smoked half pack a day for 2 years. No alcohol use. No drug use. REVIEW OF SYMPTOMS: As per HPI. Rest of review of symptoms negative. PHYSICAL EXAMINATION: GENERAL: The patient is of moderate build, not in distress. VITAL SIGNS: Temperature 36.9, pulse 89, respiratory rate 18, blood pressure 173/104, oxygen 98% on room air. HEENT: No pallor, no icterus. Pupils equal, round react to light. NECK: No JVD, no neck masses, no carotid bruits. CARDIOVASCULAR: S1, S2 heard, regular rate and rhythm, no murmur, no gallop. RESPIRATORY SYSTEM: Clear to auscultation. No accessory muscle use. No wheezing, no crackles. ABDOMEN: Soft, bowel sounds present. Nontender. No distention. CENTRAL NERVOUS SYSTEM: Cranial nerves II-XII are grossly intact. Nonfocal. MUSCULOSKELETAL: Lumbar spinal incision sites show mild drainage and tender to palpation. EXTREMITIES: No edema, no erythema. LABORATORY DATA: WBC 5.7, hemoglobin 10.8, hematocrit 30.5, platelets 246. Sodium 133, potassium 3.3, chloride 91, bicarb 36, BUN 12, creatinine 1.4, serum glucose 101. Lactic acid 0.9, total calcium 9.5, total bilirubin 0.3, AST 16, ALT 13, alkaline phosphatase 91, lipase 47. PT 11.4, INR 1.1, PTT 25. Urinalysis pending. IMAGING DATA: Lumbar spine CT shows multilevel disc bulges with mild spinal stenosis at L2-L3, L3-L4, and L4-L5 levels. Intrathecal catheter, which enters the spinal canal at the L2-L3 level, posterolateral to L3 spinous process 32 x 22 x 18 mm fluid collection. The catheter traverses the fluid collection. Diagnostic considerations include, post-surgical seroma, abscess or catheter leakage. No change in the appearance of the 7 mm faintly opaque foreign body within the subcutaneous soft tissue at the L2-L3 level and the midline small left pleural effusion. CT scan of the abdomen and pelvis shows rim enhancing 8 cm fluid collection from the implanted device in the right ventricular abdominal wall consistent with abscess. Rim enhancing lesion also surrounds the lead throughout the course along the right lateral abdominal wall and intra upper lumbar region. Focal two cm abscess in the left paraspinal musculature and marked circumferential bladder wall thickening. This could suggest neurogenic bladder, or severe chronic outlet obstruction possibly due to prostatomegaly. Apparent circumferential distal esophageal wall thickening. This could suggest esophagitis, if clinically warranted fluoroscopy upper GI exam could be obtained for further evaluation. ASSESSMENT AND PLAN: This is a 51-year-old male who presents with leaking from the intrathecal pump. 1. Intrathecal pump leakage, seroma versus abscess at L3 level. Pain management is going to take to operation room and do incision and drainage. We will empirically start on IV vancomycin. We will follow the cultures. Currently, the patient is hemodynamically stable and has no fevers, and no white count. Monitor on the medical floor, and place him on fluids. 2. Chronic pain syndrome from the metastatic lung cancer. We will place him on IV Dilaudid p.r.n. pain management on board. 3. Metastatic lung cancer. The patient is currently no longer on chemo and is going to see Dr. Amanda next week for further plan of care. 4. History of diabetes. We will cut back on Lantus to 15 units, at home he is on 25 units at bedtime and I will place him on insulin sliding scale. We will follow the blood sugars. 5. History of gastroparesis and on gastric pacemaker. Currently, having nausea and vomiting and CAT scan showed esophagitis. We will place him on IV Protonix and will consult GI when patient is more stable. 6. History of hypertension. Continue amlodipine and Lopressor. We will monitor the blood pressure. 7. History of epilepsy. Continue Keppra. Currently stable. 8. History of neurogenic bladder. We will monitor. 9. Deep venous thrombosis prophylaxis, SCDs for now. DISPOSITION: Admit to medical floor. Expect to discharge home and follow with family doctor. Level 1 full code. MTDD
[2017-01-14] MEDS: INSULIN ASPART 100 UNITS/ML 3 ML PEN SC SCH ×3 (12:00→21:32)
[2017-01-14] MEDS ORDERED: BUPIVACAINE/EPINEPHRINE 0.5% MPF 1:200,000 30 ML VIAL ONE (12:07)
[2017-01-14] MEDS ORDERED: BACITRACIN 50000 UNIT VIAL ONE (12:08)
[2017-01-14] MEDS ORDERED: LIDO 2%/EPINEPHRINE 1:100000 20 ML VIAL INFIL ONE (12:08)
[2017-01-14] MEDS ORDERED: PROCHLORPERAZINE INJ 10 MG in SYRINGE 8 ML IV ONE (12:30)
--- NOTE | 2017-01-14 13:00 | Pain Management Consultation ---
Pain Management Consultation Date of Consultation Jan 14, 2017. Reason for Consultation Discharge from incisional site status post intrathecal pump implantation 2016. History Mr. Jc is a 51-year-old white male who is well known to the pain service with a history of chronic intractable neuropathic pain who underwent implantation of intrathecal pump and catheter delivery system on 12/25/2016. Patient appeared to be healing appropriately at his follow-up visit on 2016. Patient presented to the emergency Department earlier today with subjective complaints of sweats and chills and discharge from his incisional site in the right lower quadrant near the pump implantation as well as pain near the incisional site in the thoracolumbar spine. He reported noticing increased amounts of discharge from the pump site approximately 48 hours ago. He reports increased frequency of vomiting over the past few days. He admits compliance with use of the abdominal binder. He is overall reporting improved pain control with use of the intrathecal pump compared to prior. Patient has known history of lung cancer with metastasis as well as gastroparesis with gastric stimulator implanted. He continues on chemotherapy. He denies change in location or characteristic of his typical pain other than increased discomfort near the incisional site in the thoracolumbar spine. He has no further consequence complaints at this time. He reports generalized headaches but denies change with position. Plan of care discussed with Dr. Idalia Hernandez. Past Medical/Surgical History (1) Confusion (2) Orthostatic hypotension (3) Neutropenia (4) Facial cellulitis (5) Intractable nausea and vomiting (6) Chronic pain (7) Intrathecal pump infection (8) Nausea and vomiting (9) Diabetes mellitus, type II (10) Diabetic polyneuropathy (11) Gastroparesis (12) Lung cancer (13) HTN (hypertension) (14) History of cholecystectomy (15) History of tonsillectomy and adenoidectomy (16) Hx of total knee arthroplasty (17) S/P lobectomy of lung (18) H/O esophagogastroduodenoscopy (19) H/O colonoscopy Family History Cancer Diabetes mellitus Hypertension Social / Work History Smoking Status: Former smoker Smokeless Tobacco Use: No Alcohol Use: none Drug Use: none Marital Status: Housing Status: lives with significant other Occupation: disabled Allergies Coded Allergies: BEE STING (Verified Allergy, Mild, SWELLING AT SITE, SOB, 01/14/17) Penicillins (Unverified Allergy, Unknown, "SINCE "-Amoxicillin, ) Medications Current Inpatient Medications Medications (Trade) Dose Ordered Sig/Cal Route Start Time Stop Time Status Last Admin Dose Admin Ioversol (Optiray 320) 93 ml UD PRN IV 01/14/17 07:30 01/18/17 07:29 Acetaminophen (Tylenol Tab) 650 mg Q4H PRN PO 01/14/17 09:15 02/13/17 09:14 Al Hydrox/Mg Hydrox/Simethicone (Maalox Max Susp) 15 ml Q4H PRN PO 01/14/17 09:15 02/13/17 09:14 Magnesium Hydroxide (Milk Of Magnesia Susp) 30 ml Q6H PRN PO 01/14/17 09:15 02/13/17 09:14 Ondansetron HCl (Zofran Inj) 4 mg Q6H PRN IV 01/14/17 09:15 02/13/17 09:14 01/14/17 11:22 4 MG Epinephrine (Epipen) 0.3 mg UD PRN IM 01/14/17 09:15 02/13/17 09:14 Folic Acid (Folvite Tab) 1 mg QAM PO 01/15/17 09:00 02/14/17 08:59 Levetiracetam (Keppra Tab) 750 mg BID PO 01/14/17 21:00 02/13/17 20:59 Magnesium Chloride (Slow-Mag Tab) 64 mg BID PO 01/14/17 21:00 02/13/17 20:59 Metoclopramide HCl (Reglan Tab) 10 mg ACHS PRN PO 01/14/17 09:15 02/13/17 09:14 Metoprolol Tartrate (Lopressor Tab) 25 mg BID PO 01/14/17 21:00 02/13/17 20:59 Promethazine HCl (Phenergan Supp) 25 mg Q4H PRN LA 01/14/17 09:15 02/13/17 09:14 Venlafaxine HCl (effeXOR EXTENDED REL CAP) 37.5 mg QAM PO 01/15/17 09:00 02/14/17 08:59 Multivitamins (Multivitamin Tab) 1 tab QAM PO 01/15/17 09:00 02/14/17 08:59 Insulin Glargine (Lantus Solostar Pen) 15 units HS SC 01/14/17 21:00 02/13/17 20:59 Insulin Aspart (novoLOG ASPART) SLIDING SCALE G... ACHS SC 01/14/17 12:00 02/13/17 11:59 Pantoprazole Sodium 40 mg/ Syringe 10 ml @ 5 mls/min DAILY@11 IV 01/14/17 12:30 02/13/17 12:29 Potassium Chloride 10 meq/ Prmx 100 ml @ 100 mls/hr TODAY@1400,1500 IV 01/14/17 14:00 01/14/17 23:59 Hydromorphone HCl (Dilaudid Inj) 1 mg Q3HWA PRN IV 01/14/17 09:30 01/28/17 09:29 01/14/17 11:23 1 MG Albuterol (Ventolin Hfa Inhaler) 2 puffs Q6H PRN INH 01/14/17 09:30 02/13/17 09:29 Amlodipine Besylate (Norvasc Tab) 5 mg QAM PO 01/15/17 09:00 02/14/17 08:59 Gabapentin (Neurontin Tab) 600 mg TID PO 01/14/17 14:00 02/13/17 13:59 Potassium Chloride/Sodium Chloride 1,000 ml @ 125 mls/hr Q8H IV 01/14/17 12:00 02/13/17 11:59 Glucose (Glucose 40% Gel) 15-30 GRAMS 15 GRAMS... UD PRN PO 01/14/17 10:00 02/13/17 09:59 Glucose (Glucose Chew Tab) 4-8 Tablets 4 Tabl... UD PRN PO 01/14/17 10:00 02/13/17 09:59 Dextrose (Dextrose 50% 50ML Syringe) 25-50ML OF 50% DW IV FOR... UD PRN IV 01/14/17 10:00 02/13/17 09:59 Glucagon (Glucagon Inj) 1 mg UD PRN SQ 01/14/17 10:00 02/13/17 09:59 Vancomycin HCl (Consult) 1 ea UD PRN N/A 01/14/17 10:15 02/13/17 10:14 Vancomycin HCl 1000 mg/Sodium Chloride 270 ml @ 125 mls/hr 1115 ONCE IV 01/14/17 11:15 01/14/17 13:24 01/14/17 12:09 125 MLS/HR Vancomycin HCl 1500 mg/Sodium Chloride 530 ml @ 200 mls/hr Q12H IV 01/14/17 20:00 01/24/17 19:59 Future Hold Review of Systems Patient denies complaints related to cardiac, pulmonary, GI, , ENT, dermatological or musculoskeletal other than those described above in history of present illness. Physical Exam Height & Weight: Height 5 feet, 8.00 inches. Weight 78.200 (Kilograms) 172 (Pounds) Last Vital Signs Documentation Date Time Temp Pulse Resp B/P (MAP) Pulse Ox O2 Delivery O2 Flow Rate FiO2 01/14/17 12:00 36.9 95 20 180/97 (124) 99 Room Air Exam: Gen.: Mr. Jc is lying in exam room upon entering company by a female soap press feeder. Speech and thought process was appropriate. Mood and affect appropriate. Cognition intact. Neck: No evidence of meningismus appreciated. Full range of motion without limitation. Abdomen: Soft and nondistended. No organomegaly procedure. No rebound or guarding. Pump incisional site present in the right lower quadrant with scant amount of serous discharge. No odor appreciated. Moderately tender to palpation. No significant appreciable fluid accumulation associated with the pump. Back/spine: Thoracolumbar midline incision appears slightly edematous and slightly gaping at the superior aspect with minimal active discharge which appears yellowish in color. No odor appreciated. Patient is edematous in the left paraspinal location with exquisite tenderness to palpation. Neurologic: Cranial nerves grossly intact. Ambulatory function normal. Laboratory Laboratory Results (Last CBC): 01/14/17 06:00 Red Blood Count 3.71 L, Mean Corpuscular Volume 82.2, Mean Corpuscular Hemoglobin 29.1, Mean Corpuscular Hemoglobin Concent 35.4, Mean Platelet Volume 8.7, Neutrophils (%) (Auto) 68.0, Lymphocytes (%) (Auto) 18.6, Monocytes (%) ( Auto) 10.9, Eosinophils (%) (Auto) 2.1, Basophils (%) (Auto) 0.2, Neutrophils # (Auto) 3.89, Lymphocytes # (Auto) 1.06 L, Monocytes # (Auto) 0.62 H, Eosinophils # (Auto) 0.12, Basophils # (Auto) 0.[address]: reports reviewed CT Findings Patient: NIKHIL MARTINS Address1: [address] [place] [address] Rec: [id number] Address2: Acct ID: [id number] [facility] Zip: [place] [address] Date: 1965 Sex: M Room/Bed: Ref Phy: Bran Burgess M.D. SC: WILFRIDO Att Phy: Report #: [id number] [place] Phy: Bran Burgess M.D. Test: APIV Admit Phy: Data Collection Associate: [facility] Interpreting Phy: Ronnell Renee MD Diagnosis: VOMITING,INCISION LEAKING Ordering Phy: Ana Luisa Vieyra PA-C Service Date: 01/14/17 Admit Date: 01/14/17 MNE: [id number] CONF: DICTATED BY: Ronnell Renee MD]] CC: Bran Burgess M.D., Karen S., Ana Luisa Johns PA-C Endcc: [~ rep ct add3]] ABD/PELVIS IV CONTRAST ONLY CLINICAL HISTORY: 51 years-old Male presenting with abdominal pain, recent intratheal pump placement on 12/25 with swelling/discharge from incisions, vomiting for one week. TECHNIQUE: Multidetector CT of the abdomen and pelvis was performed after the administration of intravenous contrast. IV contrast: 93 mL of Optiray 320. A dose lowering technique was used consistent with the principles of ALARA (as low as reasonably achievable). COMPARISON: 08/15/2016. CT DOSE (mGy.cm): The estimated cumulative dose is 498.77 inclusive of the lumbar spine. 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 Cholecystectomy clips noted. Lung bases: Lung bases clear. No pericardial or pleural effusion. Liver: Normal morphology. No liver lesion. Patent hepatic vasculature. Biliary: No intrahepatic or extrahepatic biliary ductal dilatation. Gallbladder surgically absent. Pancreas: Severe parenchymal atrophy. Spleen: Normal. Adrenal glands: Normal. Kidneys and ureters: Normal. No hydronephrosis. Bladder: Marked circumferential bladder wall thickening in the under distended bladder. Pelvic organs: Prostate enlargement likely secondary to benign prostatic hyperplasia. Bowel: Apparent circumferential distal esophageal wall thickening. Remainder of bowel is grossly normal the absence of oral contrast. No bowel obstruction. Peritoneal cavity: No free fluid or intraperitoneal gas. Vasculature: Atherosclerosis of the normal caliber abdominal aorta. IVC patent. Lymph nodes: No enlarged lymph nodes in the abdomen or pelvis. Abdominal wall: Implanted device is noted in the subcutaneous tissue of the ventral right and left abdominal wall. The right-sided implanted device is surrounded by a rim-enhancing fluid collection measuring nearly 8 cm. A lead projects from the device and course along the right lateral abdominal wall towards the lumbar region. Rim-enhancing fluid along the course of the lead is also apparent. A 2 cm fluid collection is also apparent in the left paraspinal musculature at the level of L2-3, where the lead enters the spinal canal. Evaluation for an epidural collection is limited. The left-sided implanted device has 2 leads that project along the anterior peritoneal cavity towards the gastric body. No associated fluid collection. Musculoskeletal: No osseous erosion or destructive osseous lesion is apparent. Mild degenerative change noted. IMPRESSION: 1. Rim-enhancing 8 cm fluid collection surrounding the implanted device in the right ventral abdominal wall consistent with abscess. Rim-enhancing fluid also surrounds the lead throughout its course along the right lateral abdominal wall and into the upper lumbar region. Focal 2 cm abscess in the left paraspinal musculature. 2. Marked circumferential bladder wall thickening. This could suggest neurogenic bladder or severe chronic outlet obstruction possibly due to prostatomegaly, although evaluation for underlying bladder wall irregularity/soft tissue neoplasm is limited given underdistention in the severe degree of bladder wall thickening. Urologic consultation could be considered if clinically warranted. 3. Apparent circumference of distal esophageal wall thickening. This could suggest esophagitis. If clinically warranted, fluoroscopic upper GI exam could be obtained for further evaluation. Electronically signed by: Ronnell Renee M.D. 01/14/2017 7:35 AM Dictated Date/Time: 01/14/2017 7:23 AM The status of this report is Signed. Draft = Not yet reviewed or approved by Radiologist. Signed = Reviewed and approved by Radiologist. Patient: NIKHIL MARTINS Address1: [address] [place] [address] Rec: [id number] Address2: Acct ID: [id number] [facility] [address] Date: 1965 Sex: M Room/Bed: Ref Phy: Bran Burgess M.D. SC: WILFRIDO Att Phy: Report #: [id number] [place] Phy: Bran Burgess M.D. 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 Diagnosis: VOMITING,INCISION LEAKING Ordering Phy: Ana Luisa Vieyra PA-C Service Date: 01/14/17 Admit Date: 01/14/17 MNE: [id number] CONF: DICTATED BY: Bruce Salamanca M.D.]] CC: Bran Burgess M.D., Karen S., Ana Luisa Johns PA-C Endcc: [~ rep ct add3]] CT LUMBAR SPINE WITH CONTRAST CT DOSE: 498.77 mGy.cm CLINICAL HISTORY: back pain, recent intrathecal pump with swelling/discharge TECHNIQUE: The patient was scanned following the administration of 93 cc of Optiray 320. Helical images were acquired in the axial plane. Sagittal and coronal reformatted images were acquired. A dose lowering technique was utilized adhering to the principles of ALARA. COMPARISON STUDY: None. FINDINGS: Intrathecal catheter is visualized. The catheter enters the spinal canal at the L2-3 level. The catheter extends cephalad to the T11-12 level. L1-2 level: There is no evidence of disc bulge or focal herniation. There is no evidence of spinal or foraminal stenosis L2-3 level: There is a mild circumferential disc bulge. There is mild spinal stenosis. There is no significant foraminal narrowing L3-4 level: There is a mild circumferential disc bulge. There is mild spinal stenosis. There is no significant foraminal narrowing L4-5 level: There is a mild circumferential disc bulge. There is mild spinal stenosis. There is no significant foraminal narrowing L5-S1 level: There is no evidence of significant disc bulge or focal herniation. There is no evidence of spinal or foraminal stenosis area There is a small left pleural effusion. There is mild posterior edema. In the left posterior paraspinal region adjacent to the L3 spinous process, there is a fluid collection measuring 32 x 22 x 18 mm. The catheter traverses this fluid collection. Diagnostic considerations for the fluid collection include postsurgical seroma, abscess, or catheter leakage. Within the subcutaneous soft tissues at the L2-3 level, there is a 7 mm faintly opaque foreign body. There is surrounding soft tissue thickening. This structure was present on a prior abdominal CT scan performed August 2016. IMPRESSION: 1. Multilevel disc bulges with mild spinal stenosis at the L2-3, L3-4, and L4-5 levels. 2. Intrathecal catheter which enters the spinal canal the L2-3 level 3. Posterior lateral to the L3 spinous process is a 32 x 22 x 18 mm fluid collection. The catheter traverses fluid collection. Diagnostic considerations include postsurgical seroma, abscess, or catheter leakage 4. No change in the appearance of a 7 mm faintly opaque foreign body within the subcutaneous soft tissues at the L2-3 level in the midline. 5. Small left pleural effusion Electronically signed by: Bruce Salamanca M.D. 01/14/2017 7:42 AM Dictated Date/Time: 01/14/2017 7:26 AM The status of this report is Signed. Draft = Not yet reviewed or approved by Radiologist. Signed = Reviewed and approved by Radiologist. Past Records Previous Records: personally reviewed by [facility] Drug Monitoring Program Search Results: patient reviewed within database, no issues identified Assessment 1. Discharge from abdominal pump incision and catheter incision thoracolumbar spine with concern over seroma versus abscess 2. Chronic neuropathic pain requiring implantation of intrathecal pump and catheter system-implant 12/25/2016 3. History of metastatic lung cancer 4. History of gastroparesis on gastric stimulator 5. Diabetes mellitus Recommendations 1. Will obtain blood cultures 2 2. Will plan to take the patient to the operating room for evaluation and potential debridement with cultures versus explantation of the pump and catheter system pending findings intraoperatively. Patient has been nothing by mouth since last evening. The procedure was discussed with the patient. Dr. Hope to discuss the procedure further with inherent risks and potential benefits as well as obtaining consent. 3. Maintain use of intrathecal pump for pain management at this time with further decisions pending outcome of OR findings 4. Will continue to follow during hospitalization
--- NOTE | 2017-01-14 13:04 | Surgery Consultation ---
Consultation Date of Consultation: Jan 14, 2017. Attending Physician: Aguila Saenz MD Reason for Consultation: Post operative fluid collection and lumbar spine. History of Present Illness Jeff Jc is a 51-year-old male with multiple comorbid conditions including metastatic lung malignancy, diabetic gastroparesis, diabetic neuropathy, pancytopenia, seizures, as well as other comparable causing medical conditions. He has history of chronic pain due to peripheral neuropathy and metastatic lung malignancy. He underwent intrathecal catheter and pump infusion system placement in December as was felt that the parenteral and topical opioids will contribute to his gastroparesis. He was seen in the office and was noted to have what felt like fluid collection underneath his lumbar spine incision. He came to the emergency room and was noted to have tenderness at the back incision and fluid collection as well. CT scan performed in the emergency room demonstrated a fluid collection in the lumbar spine consistent with either seroma, CSF or possible infection. He denies any fevers, chills, any redness or any other constitutional symptoms associated with a fluid collection or tenderness in the lumbar spine incision. He has a chronically low WBC count due to his underlying malignancy and chemotherapy. He denies adequate analgesia from intrathecal infusion and denies any new neurological symptoms including numbness, weakness, bowel or bladder incontinence, or saddle anesthesia. Past Medical/Surgical History Medical Problems: (1) Acute kidney injury Status: Acute (2) Altered mental status Status: Acute (3) Anemia Status: Acute (4) Chronic pain Status: Acute (5) Dehydration Status: Acute (6) Dehydration Status: Acute (7) Dehydration Status: Acute (8) Dehydration Status: Acute (9) Diabetes mellitus with hyperglycemia Status: Acute (10) Failure of outpatient treatment Status: Acute (11) Hypomagnesemia Status: Acute (12) Hypomagnesemia Status: Acute (13) Intractable vomiting Status: Acute (14) Intractable vomiting Status: Acute (15) Intrathecal pump infection Status: Acute (16) Orthostatic hypotension Status: Acute (17) Vomiting Status: Acute (18) Vomiting Status: Acute Family History Cancer Diabetes mellitus Hypertension Social History Smoking Status: Former Smoker Drug Use: none Marital Status: Housing Status: lives with family Occupation Status: disabled Allergies Coded Allergies: BEE STING (Verified Allergy, Mild, SWELLING AT SITE, SOB, 01/14/17) Penicillins (Unverified Allergy, Unknown, "SINCE "-Amoxicillin, ) Home Medications Scheduled Amlodipine (Norvasc), 5 MG PO QAM Aspirin (Aspirin Ec), 81 MG PO QAM Folic Acid (Folvite), 1 TAB PO QAM Gabapentin (Neurontin), 1 TAB PO TID Insulin Aspart (Novolog), 5 UNITS SC ACHS Insulin Glargine (Lantus), 25 UNITS SC QPM Levetiracetam (Keppra), 750 MG PO BID Magnesium Chloride (Slow-Mag Tab), 64 MG PO BID Metoprolol Tartrate (Lopressor) (Lopressor), 25 MG PO BID Multiple Vitamin (Multivitamins), 1 CAP PO QAM Pantoprazole (Protonix), 40 MG PO QAM Venlafaxine Hcl (Effexor Xr), 37.5 MG PO QAM Scheduled PRN Acetaminophen (Tylenol), 650 MG PO TID PRN for Pain Albuterol Hfa (Ventolin Hfa), 2 PUFFS INH Q6H PRN for SOB/Wheezing Epinephrine (Epipen), 0.3 MG IM UD PRN for ALLERGIC REACTION Hydromorphone Hcl (Dilaudid), 8 MG PO Q8 PRN for Pain Metoclopramide Hcl (Reglan), 10 MG PO ACHS PRN for Nausea Ondansetron (Ondansetron HCl), 8 MG PO Q8 PRN for Nausea Promethazine Hcl (Phenergan Suppository), 25 MG CO Q4H PRN for Nausea or Vomiting Current Inpatient Medications Current Inpatient Medications Medications (Trade) Dose Ordered Sig/Cal Route Start Time Stop Time Status Last Admin Dose Admin Ioversol (Optiray 320) 93 ml UD PRN IV 01/14/17 07:30 01/18/17 07:29 Acetaminophen (Tylenol Tab) 650 mg Q4H PRN PO 01/14/17 09:15 02/13/17 09:14 Al Hydrox/Mg Hydrox/Simethicone (Maalox Max Susp) 15 ml Q4H PRN PO 01/14/17 09:15 02/13/17 09:14 Magnesium Hydroxide (Milk Of Magnesia Susp) 30 ml Q6H PRN PO 01/14/17 09:15 02/13/17 09:14 Ondansetron HCl (Zofran Inj) 4 mg Q6H PRN IV 01/14/17 09:15 02/13/17 09:14 01/14/17 11:22 4 MG Epinephrine (Epipen) 0.3 mg UD PRN IM 01/14/17 09:15 02/13/17 09:14 Folic Acid (Folvite Tab) 1 mg QAM PO 01/15/17 09:00 02/14/17 08:59 Levetiracetam (Keppra Tab) 750 mg BID PO 01/14/17 21:00 02/13/17 20:59 Magnesium Chloride (Slow-Mag Tab) 64 mg BID PO 01/14/17 21:00 02/13/17 20:59 Metoclopramide HCl (Reglan Tab) 10 mg ACHS PRN PO 01/14/17 09:15 02/13/17 09:14 Metoprolol Tartrate (Lopressor Tab) 25 mg BID PO 01/14/17 21:00 02/13/17 20:59 Promethazine HCl (Phenergan Supp) 25 mg Q4H PRN CO 01/14/17 09:15 02/13/17 09:14 Venlafaxine HCl (effeXOR EXTENDED REL CAP) 37.5 mg QAM PO 01/15/17 09:00 02/14/17 08:59 Multivitamins (Multivitamin Tab) 1 tab QAM PO 01/15/17 09:00 02/14/17 08:59 Insulin Glargine (Lantus Solostar Pen) 15 units HS SC 01/14/17 21:00 02/13/17 20:59 Insulin Aspart (novoLOG ASPART) SLIDING SCALE G... ACHS SC 01/14/17 12:00 02/13/17 11:59 Pantoprazole Sodium 40 mg/ Syringe 10 ml @ 5 mls/min DAILY@11 IV 01/14/17 12:30 02/13/17 12:29 Potassium Chloride 10 meq/ Prmx 100 ml @ 100 mls/hr TODAY@1400,1500 IV 01/14/17 14:00 01/14/17 23:59 Hydromorphone HCl (Dilaudid Inj) 1 mg Q3HWA PRN IV 01/14/17 09:30 01/28/17 09:29 01/14/17 11:23 1 MG Albuterol (Ventolin Hfa Inhaler) 2 puffs Q6H PRN INH 01/14/17 09:30 02/13/17 09:29 Amlodipine Besylate (Norvasc Tab) 5 mg QAM PO 01/15/17 09:00 02/14/17 08:59 Gabapentin (Neurontin Tab) 600 mg TID PO 01/14/17 14:00 02/13/17 13:59 Potassium Chloride/Sodium Chloride 1,000 ml @ 125 mls/hr Q8H IV 01/14/17 12:00 02/13/17 11:59 Glucose (Glucose 40% Gel) 15-30 GRAMS 15 GRAMS... UD PRN PO 01/14/17 10:00 02/13/17 09:59 Glucose (Glucose Chew Tab) 4-8 Tablets 4 Tabl... UD PRN PO 01/14/17 10:00 02/13/17 09:59 Dextrose (Dextrose 50% 50ML Syringe) 25-50ML OF 50% DW IV FOR... UD PRN IV 01/14/17 10:00 02/13/17 09:59 Glucagon (Glucagon Inj) 1 mg UD PRN SQ 01/14/17 10:00 02/13/17 09:59 Vancomycin HCl (Consult) 1 ea UD PRN N/A 01/14/17 10:15 02/13/17 10:14 Vancomycin HCl 1000 mg/Sodium Chloride 270 ml @ 125 mls/hr 1115 ONCE IV 01/14/17 11:15 01/14/17 13:24 01/14/17 12:09 125 MLS/HR Vancomycin HCl 1500 mg/Sodium Chloride 530 ml @ 200 mls/hr Q12H IV 01/14/17 20:00 01/24/17 19:59 Future Hold Review of Systems Constitutional: No fever, No chills, No sweats, No weight loss, No weakness, No fatigue, No problem reported Eyes: No worsening of vision, No eye pain, No redness, No discharge, No diplopia, No problem reported ENT: No hearing loss, No unusual epistaxis, No nasal symptoms, No sore throat, No tinnitus, No dental problems, No trouble swallowing, No problem reported Respiratory: No cough, No sputum, No wheezing, No shortness of breath, No dyspnea on exertion, No dyspnea at rest, No hemoptysis, No problem reported Cardiovascular: No chest pain, No orthopnea, No PND, No edema, No claudication , No palpitations, No problem reported Abdomen: No pain, No nausea, No vomiting, No diarrhea, No constipation, No GI bleeding, No problem reported Musculoskeletal: + swelling (lumbar spine wound.), + problem reported Neurologic: + numbness/tingling (chronic nondermatomal paresthesias in the distal extremities.), No memory loss, No paralysis, No weakness, No vertigo, No balance problems, No problem reported Psychiatric: No depression symptoms, No anhedonism, No anxiety, No insomnia, No substance abuse, No problem reported Physical Exam Date Time Temp Pulse Resp B/P (MAP) Pulse Ox O2 Delivery O2 Flow Rate FiO2 01/14/17 12:00 36.9 95 20 180/97 (124) 99 Room Air 01/14/17 11:34 176/87 (116) 01/14/17 10:41 87 16 133/84 98 01/14/17 10:25 37.0 99 18 155/103 96 Room Air 01/14/17 09:55 90 20 122/84 98 Room Air 01/14/17 08:57 89 01/14/17 08:19 4 20 173/96 94 Room Air 01/14/17 07:10 92 20 186/99 94 Room Air 01/14/17 05:47 95 01/14/17 05:15 36.7 97 18 154/102 100 Room Air General Appearance: + mild distress Head: normocephalic, atraumatic Eyes: normal inspection, PERRL, EOMI, sclerae normal ENT: normal ENT inspection, pharynx normal Neck: supple, no adenopathy, no carotid bruits, trachea midline Respiratory/Chest: chest non-tender, lungs clear Cardiovascular: regular rate, rhythm, no edema, no gallop, no JVD, no murmur, normal peripheral pulses Abdomen/GI: non tender, soft, no organomegaly Genitourinary - Male: normal male genitalia Back: + abnormal inspection Extremities/Musculoskelatal: normal inspection 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, no motor/sensory deficits, normal mood/affect, oriented x 3 Skin: warm/dry Laboratory Results Last 24 Hours Test 01/14/17 06:00 01/14/17 06:31 01/14/17 09:00 01/14/17 12:19 White Blood Count 5.71 K/uL Red Blood Count 3.71 M/uL Hemoglobin 10.8 g/dL Hematocrit 30.5 % Mean Corpuscular Volume 82.2 fL Mean Corpuscular Hemoglobin 29.1 pg Mean Corpuscular Hemoglobin Concent 35.4 g/dl Platelet Count 246 K/uL Mean Platelet Volume 8.7 fL Neutrophils (%) (Auto) 68.0 % Lymphocytes (%) (Auto) 18.6 % Monocytes (%) (Auto) 10.9 % Eosinophils (%) (Auto) 2.1 % Basophils (%) (Auto) 0.2 % Neutrophils # (Auto) 3.89 K/uL Lymphocytes # (Auto) 1.06 K/uL Monocytes # (Auto) 0.62 K/uL Eosinophils # (Auto) 0.12 K/uL Basophils # (Auto) 0.01 K/uL RDW Standard Deviation 38.6 fL RDW Coefficient of Variation 13.1 % Immature Granulocyte % (Auto) 0.2 % Immature Granulocyte # (Auto) 0.01 K/uL Prothrombin Time 11.4 SECONDS Prothromb Time International Ratio 1.1 Activated Partial Thromboplast Time 25.0 SECONDS Partial Thromboplastin Ratio 1.0 Sodium Level 133 mmol/L Potassium Level 3.3 mmol/L Chloride Level 91 mmol/L Carbon Dioxide Level 36 mmol/L Anion Gap 6.0 mmol/L Blood Urea Nitrogen 12 mg/dl Creatinine 1.40 mg/dl Est Creatinine Clear Calc Drug Dose 60.4 ml/min Estimated GFR () 66.9 Estimated GFR (Non- 57.8 BUN/Creatinine Ratio 8.9 Random Glucose 101 mg/dl Calcium Level 9.5 mg/dl Total Bilirubin 0.3 mg/dl Aspartate Amino Transf (AST/SGOT) 16 U/L Alanine Aminotransferase (ALT/SGPT) 13 U/L Alkaline Phosphatase 91 U/L Total Protein 8.2 gm/dl Albumin 3.5 gm/dl Globulin 4.7 gm/dl Albumin/Globulin Ratio 0.7 Lipase 47 U/L Lactic Acid Level 0.9 mmol/L Urine Color YELLOW Urine Appearance CLEAR Urine pH 6.5 Urine Specific [place] 1.034 Urine Protein 2+ Urine Glucose (UA) 1+ Urine Ketones TRACE Urine Occult Blood 1+ Urine Nitrite NEG Urine Bilirubin NEG Urine Urobilinogen NEG Urine Leukocyte Esterase NEG Urine WBC (Auto) 1-5 /hpf Urine RBC (Auto) 0-4 /hpf Urine Hyaline Casts (Auto) 5-10 /lpf Urine Epithelial Cells (Auto) 20-30 /lpf Urine Bacteria (Auto) NEG Bedside Glucose 167 mg/dl Assessment & Plan Postoperative fluid collection at the site of catheter placement in the lumbar spine. Possible seroma, CSF collection or an abscess. Because patient has chronically low WBC, he may be unable to mount a response with fever and typical symptoms associated with an abscess, it is recommended that he undergo exploration of the bone, including irrigation debridement with cultures to be taken. Risks, benefits, and consequences of not proceeding with discussed the patient's spouse. He understands and gives full informed consent.
--- NOTE | 2017-01-14 15:16 | [facility] Operative Report ---
Operative Report Operative Date Jan 14, 2017. Pre-Operative Diagnosis Fluid collection, catheter site of pump Post-Operative Diagnosis CSF leak around catheter site of pump Procedure(s) Performed Exploration, debridement, irrigation Lumbar Spine wound; Catheter Revision and reanchoring Surgeon Jayy Director [employer] Surgeon(s) none Estimated Blood Loss 2 ml Findings 1. CSF leak without any overt signs of infection. 2. Catheter migrated approximately 3 cm from the initial insertion site into the ligamentum flavum. Specimens Cultures: catheter site back right: aerobic, anaerobic, gram stain Drains none Anesthesia general endotracheal Complication(s) None Disposition Recovery Room / PACU Indications Fluid collection around the lumbar spine wound. Description of Procedure EXPLORATION, IRRIGATION AND DEBRIDEMENT AND REVISION OF INTRATHECAL CATHETER. PREOPERATIVE DIAGNOSIS: Fluid collection around the lumbar spine catheter insertion site POSTOPERATIVE DIAGNOSIS: CSF leak around the catheter insertion site. PROCEDURE: 1. Exploration of intrathecal catheter insertion site. 2. Irrigation and drainage of the lumbar spine catheter site wound. 3. Revision of intrathecal catheter by placing additional anchor. INDICATIONS: Jeff Jc underwent implantation of intrathecal catheter and pump system in December. He noted clear drainage at the pump and they catheter wound sites. Imaging revealed fluid collection around the catheter insertion site. Because of patient being immunocompromise, and because of patient being symptomatic with positional headaches but no constitutional symptoms consistent with infection, he was advised to undergo exploration of the lumbar spine wound to rule out infection. COMPLICATIONS: None ANESTHESIA: General. DESCRIPTION OF PROCEDURE: The patient had a successful intrathecal trial and agreed to intrathecal pump insertion. Prior to starting, the Patients diagnosis and the procedure were reviewed with the patient in detail. Possible risks and complications including infection, bleeding, damage to surrounding structures and increased pain were discussed. Alternative therapies were also reviewed. Patients questions were answered and they agreed to proceed. Informed consent was obtained. Allergies and medication list was reviewed. Biplanar fluoroscopy was used to assist in placement of the needle as well as to evaluate the final needle and catheter positions. The patient was brought to the operating room and general anesthesia was induced by members of the department. Patient was then placed in left lateral decubitus position. Immediately prior to starting the procedure, a time out was conducted with the staff where the patient was identified, proposed procedure was verified, consent was reviewed and the proper site for the planned procedure was identified. Preoperative antibiotics for prophylaxis were given through the IV. Using a scalpel, suture scissors and electrocautery, the lumbar spine wound was opened. Upon opening clear fluid was noted to be draining from the wound. Healthy granulation tissue was seen. No purulent drainage or friable tissue consistent with infection was noted. Wound was explored and probed using hemostats but only clear, watery fluid was noted be draining without any purulent drainage. It was also noted that the catheter was withdrawn by approximately 3 cm from the ligament of flavum around the pursestring sutures. Cultures of the wound were taken. At this point we decided that infection was less likely and that this was consistent with spinal fluid leak around the catheter insertion site. The wound was irrigated with 3 L of sterile saline containing bacitracin using Pulsavac. 3 pursestring sutures were taken around the insertion site of the catheter with 0 silk. A new anchoring device was used to reach anchored the catheter at the insertion site and was secured to the dorsal lumbar fascia with 0 silk sutures. Wound was then closed with continuous 0 V lock suture for deeper layer and running 3-0 V lock suture for subcuticular layer. Prineo to the skin. 4 x 4 gauze and pressure dressing was applied to both sites. Abdominal binder was placed. No complications were noted throughout the procedure. The patient tolerated the procedure and general anesthesia without obvious complications.. Patient was allowed to emerge from anesthesia at the end of the procedure and transferred back to the stretcher. I attest to the content of the Intraoperative Record and any orders documented therein. Any exceptions are noted below.
[2017-01-14] MEDS ORDERED: LABETALOL HCL IV 5 MG/ML 20ML IV ONE ×2 (15:22→15:39)
[2017-01-14] MEDS ORDERED: EpHEDrine SULFATE INJ 50 MG/ML AMP IV PRN (15:30)
[2017-01-14] MEDS ORDERED: ATROPINE SULFATE 0.1 MG/ML 5ML SYR IV PRN (15:30)
[2017-01-14] MEDS ORDERED: HYDROmorphone INJ 1 MG/ML SYR IV PRN (15:30)
[2017-01-14] MEDS ORDERED: ONDANSETRON INJ 2 MG/ML 2 ML VIAL IV PRN (15:30)
[2017-01-14] MEDS ORDERED: NALOXONE HCL 0.4 MG/1 ML VIAL/CARP IV PRN (15:30)
[2017-01-14] MEDS ORDERED: FLUMAZENIL 0.1 MG/1 ML 10 ML VIAL IV PRN (15:30)
[2017-01-14] MEDS ORDERED: LABETALOL HCL IV 5 MG/ML 20ML IV PRN (15:30)
[2017-01-14] MEDS ORDERED: NURSING VERBAL MED ORDER ONE (16:00)
--- NOTE | 2017-01-14 16:06 | Anesthesiology Progress Note ---
Anesthesia Post Op Note Date & Time Jan 14, 2017 at 16:06 Vital Signs Pain Intensity: 6 Vital Signs Past 12 Hours Date Time Temp Pulse Resp B/P (MAP) Pulse Ox O2 Delivery O2 Flow Rate FiO2 01/14/17 16:00 85 16 147/80 99 Nasal Cannula 2 01/14/17 15:50 85 16 150/81 94 Room Air Oxymask 01/14/17 15:40 85 16 156/84 95 Room Air Oxymask 01/14/17 15:30 85 16 187/91 100 Room Air Oxymask 01/14/17 15:20 89 16 202/119 100 Oxymask 10 01/14/17 15:10 91 16 195/117 100 Oxymask 10 01/14/17 15:02 36.6 90 16 208/115 100 Oxymask 10 01/14/17 12:00 36.9 95 20 180/97 (124) 99 Room Air 01/14/17 11:34 176/87 (116) 01/14/17 10:41 87 16 133/84 98 01/14/17 10:25 37.0 99 18 155/103 96 Room Air 01/14/17 09:55 90 20 122/84 98 Room Air 01/14/17 08:57 89 01/14/17 08:19 4 20 173/96 94 Room Air 01/14/17 07:10 92 20 186/99 94 Room Air 01/14/17 05:47 95 01/14/17 05:15 36.7 97 18 154/102 100 Room Air Notes Mental Status: alert / awake / arousable, participated in evaluation Pt Amnestic to Procedure: Yes Nausea / Vomiting: adequately controlled Pain: adequately controlled Airway Patency, RR, SpO2: stable & adequate BP & HR: stable & adequate Hydration State: stable & adequate Anesthetic Complications: no major complications apparent
[2017-01-14] MEDS ORDERED: HYDROmorphone INJ 2 MG/ML SYR/VIAL IV PRN (16:15)
[2017-01-14] MEDS: NSS + 20MEQ KCL 1000ML 1,000 ML IV SCH ×2 (16:38→20:45)
[2017-01-14] MEDS: PANTOprazole INJ 40 MG in SYRINGE 0 ML IV SCH (16:47)
[2017-01-14] MEDS: POTASSIUM CHLR 10 MEQ / WTR 10 MEQ in PREMIXED WATER 100 ML IV SCH ×2 (16:47→18:02)
[2017-01-14] MEDS: GABAPENTIN 600 MG TAB PO SCH ×2 (16:56→20:48)
[2017-01-14] MEDS ORDERED: VANCOMYCIN INJ 1,500 MG in SODIUM CHLORIDE 0.9% 500ML 500 ML IV SCH (20:00)
[2017-01-14] MEDS: MAGNESIUM CHLORIDE 64MG DELAYED REL TAB PO SCH (20:48)
[2017-01-14] MEDS: LEVETIRACETAM 250 MG TAB PO SCH (20:49)
[2017-01-14] MEDS: METOPROLOL TARTRATE 25 MG TAB PO SCH (20:51)
[2017-01-14] MEDS ORDERED: INSULIN GLARGINE SOLOSTAR 100 UNITS/ML 3 ML PEN SC SCH (21:00)
[2017-01-15] MEDS: ONDANSETRON INJ 2 MG/ML 2 ML VIAL IV PRN ×4 (01:52→18:09)
[2017-01-15] MEDS: HYDROmorphone INJ 1 MG/ML SYR IV PRN ×6 (01:53→20:05)
[2017-01-15 03:42] VITALS: BP 117/75; PULSE 93; TEMP 36.5; O2SAT 100
[2017-01-15] MEDS: NSS + 20MEQ KCL 1000ML 1,000 ML IV SCH ×3 (03:51→22:08)
[2017-01-15 07:00] VITALS: BP 142/78; PULSE 93; TEMP 37; O2SAT 94
[2017-01-15] MEDS ORDERED: VANCOMYCIN TROUGH SCH (07:30)
[2017-01-15 07:41] LABS: BASO % 0.3 %; BASO ABS # 0.02 K/uL (0-0.2); COMPLETE YES; EOS % 0.9 %; HEMATOCRIT 27.1 % (42-52); IG% 0.3 %; LYMPH % 24.7 %; LYMPH ABS # 1.67 K/uL (1.2-3.4); MEAN CELL VOLUME 82.4 fL (80-100); MEAN CORPUSCULAR HEMOGLOBIN 29.5 pg (25-34); MEAN CORPUSCULAR HGB CONC 35.8 g/dl (32-36); MEAN PLATELET VOLUME 8.8 fL (7.4-10.4); NEUT % 65.8 %; PLATELET COUNT 216 K/uL (130-400); RED BLOOD COUNT 3.29 M/uL (4.7-6.1); WHITE BLOOD COUNT 6.75 K/uL (4.8-10.8)
--- NOTE | 2017-01-15 08:00 | DIAGNOSTIC IMAGING REPORT ---
THORACOLUMBAR SPINE 2 VIEWS CLINICAL HISTORY: 51 years-old Male presenting with evaluate intrathecal catheter position. TECHNIQUE: Frontal and lateral views of the thoracolumbar spine were obtained. COMPARISON: Correlation made to CT from 01/14/2017. FINDINGS: Two implanted devices project over the abdomen. The device in the right abdomen has a lead that transits toward the mid lumbar spine, entering the spinal canal at L2-3. The intrathecal position of the catheter is best seen on CT performed the previous day, where it terminated at T10 along the posterior thecal sac. The device in the left abdomen has two leads that project of the epigastrium/left upper quadrant. Cholecystectomy clips also noted. Nonobstructive bowel gas pattern. Normal curvature of the thoracolumbar junction. Mild height loss of T12 and T11 is likely in the range of normal. Associated degenerative change at these levels as well as T12-L1. No radiographic evidence of acute fracture or subluxation. IMPRESSION: The intrathecal catheter position is not well demonstrated on the current radiograph and is better visualized on CT performed the previous day where entered the spinal canal at L2-3 and terminated at T10. Electronically signed by: Ronnell Renee M.D. 01/15/2017 7:59 AM Dictated Date/Time: 01/15/2017 7:54 AM
[2017-01-15] MEDS: METOCLOPRAMIDE HCL 10 MG TAB PO PRN ×2 (08:04→20:56)
[2017-01-15] MEDS: VENLAFAXINE HCL XR 37.5 MG CAPXR PO SCH (08:13)
[2017-01-15] MEDS: MULTIVITAMIN TAB PO SCH (08:14)
[2017-01-15] MEDS: METOPROLOL TARTRATE 25 MG TAB PO SCH ×2 (08:14→20:58)
[2017-01-15] MEDS: LEVETIRACETAM 250 MG TAB PO SCH ×2 (08:14→20:58)
[2017-01-15] MEDS: MAGNESIUM CHLORIDE 64MG DELAYED REL TAB PO SCH ×2 (08:15→20:58)
[2017-01-15] MEDS: GABAPENTIN 600 MG TAB PO SCH ×3 (08:15→20:57)
[2017-01-15] MEDS: AMLODIPINE BESYLATE 5 MG TAB PO SCH (08:16)
--- NOTE | 2017-01-15 08:17 | Anesthesiology Progress Note ---
Anesthesia Post Op Note Date & Time Jan 15, 2017 at 08:16 Vital Signs Vital Signs Past 12 Hours Date Time Temp Pulse Resp B/P (MAP) Pulse Ox O2 Delivery O2 Flow Rate FiO2 01/15/17 07:10 Room Air 01/15/17 07:00 37.0 93 16 142/78 (99) 94 Room Air 01/15/17 03:42 36.5 93 16 117/75 (89) 100 Nasal Cannula 2.0 01/14/17 23:30 Room Air 01/14/17 22:46 36.9 88 18 127/79 (95) 99 Room Air 01/14/17 20:28 116/70 (85) Notes Mental Status: alert / awake / arousable, participated in evaluation Pt Amnestic to Procedure: Yes Nausea / Vomiting: improving with treatment Pain: adequately controlled Airway Patency, RR, SpO2: stable & adequate BP & HR: stable & adequate Hydration State: stable & adequate Anesthetic Complications: no major complications apparent
[2017-01-15 08:21] LABS: BUN/CREATININE RATIO 9.9 (10-20); CALCIUM 8.2 mg/dl (8.5-10.1); CREATININE 1.7 mg/dl (0.60-1.40); POTASSIUM 3.6 mmol/L (3.5-5.1)
[2017-01-15] MEDS: INSULIN ASPART 100 UNITS/ML 3 ML PEN SC SCH ×4 (08:43→20:54)
--- NOTE | 2017-01-15 10:43 | Pain Management Progress Note ---
Pain Management Progress Note Date of Service Jan 15, 2017. Gabriele Aguilar was seen on rounds this morning. He reports only one episode of headache this morning. He continues expressing incisional pain at the surgical site in the back. Nursing was present today reported minimal drainage on the bandage this morning. He continues experience nausea but has not vomited. Denies any fevers or chills. Objective Vital Signs: Last Vital Signs Documentation Date Time Temp Pulse Resp B/P (MAP) Pulse Ox O2 Delivery O2 Flow Rate FiO2 01/15/17 07:10 Room Air 01/15/17 07:00 37.0 93 16 142/78 (99) 94 01/15/17 03:42 2.0 Physical Exam: He is awake and alert and oriented to times place and person. He demonstrates normal and clear sensorium. He is sitting upright in chair preparing his breakfast. He does not appear to be any significant pain. Inspection of his back incision demonstrates scant red tinged fluid on the bandage. Palpation around the incision site does not produce any further drainage. There is significant tenderness, similar to the exam yesterday around the incision. No drainage, redness or tenderness is present at the pump site. He is spontaneous movement of his lower extremities and intact sensation in the lower extremities. Laboratory Laboratory Findings 01/15/17 07:25 Red Blood Count 3.29 L, Mean Corpuscular Volume 82.4, Mean Corpuscular Hemoglobin 29.5, Mean Corpuscular Hemoglobin Concent 35.8, Mean Platelet Volume 8.8, Neutrophils (%) (Auto) 65.8, Lymphocytes (%) (Auto) 24.7, Monocytes (%) ( Auto) 8.0, Eosinophils (%) (Auto) 0.9, Basophils (%) (Auto) 0.3, Neutrophils # ( Auto) 4.44, Lymphocytes # (Auto) 1.67, Monocytes # (Auto) 0.54, Eosinophils # ( Auto) 0.06, Basophils # (Auto) 0.02 Imaging Radiology Findings Thoracolumbar spine falls yesterday demonstrate catheter tip radiopaque marker at the inferior border of T11 vertebra. Assessment 1. CSF leak post catheter insertion. 2. Neuropathic pain. 3. Opioid dependance. Recommendations 1. Add PO hydromorphone for surgical pain. 2. Increase intrathecal hydromorphone dose by 10%. 3. Continue monitoring wound for fluid drainage and infection.
[2017-01-15] MEDS: PANTOprazole INJ 40 MG in SYRINGE 0 ML IV SCH (11:34)
[2017-01-15 11:39] VITALS: BP 114/72; PULSE 84; O2SAT 99
[2017-01-15 12:45] VITALS: BP 126/78; PULSE 86; TEMP 37.1; O2SAT 98
[2017-01-15] MEDS ORDERED: AZTREONAM IV 2,000 MG in DEXTROSE 5% 100ML 100 ML IV SCH (14:30)
--- NOTE | 2017-01-15 14:39 | Progress Note ---
Progress Note Date of Service Jan 15, 2017. Progress Note ID Consult Dictated #[id number] A/P: 1. Infected intrathecal pump with abscess - polymicrobial -Continue abx follow cultures, will change to imipenem -follow cultures -Check inflammatory markers -Will follow, thank you
[2017-01-15] MEDS ORDERED: AZTREONAM CONSULT ACTIVE PRN ×2 (14:45)
[2017-01-15 14:58] VITALS: BP 122/75; PULSE 88; TEMP 37; O2SAT 99
--- NOTE | 2017-01-15 15:13 | INFECT. DISEASE CONSULTATION ---
DATE OF CONSULTATION: 01/15/2017 DATE OF CONSULTATION: 01/15/2017 REQUESTING PHYSICIAN: Dr. Saenz. HISTORY OF PRESENT ILLNESS: This is a 51-year-old gentleman who was admitted after he noticed spontaneous leaking from a recently placed intrathecal pain pump. He states that he did have a pain pump several years ago; however, this was complicated by infection and he had it removed 5 years ago. He does describe having associated meningitis with his previous infection. He did have a new pain pump placed on 12/25/2016. He did notice at home he was having subjective fevers and shaking chills. He did have one episode of vomiting and noticed dehiscence of the wound with what he describes as purulent discharge from the area. He presented to the hospital and a superficial swab was obtained. This is growing Staph aureus and gram negative rods which has not yet been identified. He was started on vancomycin in the ER. He was followed by pain management and taken to the operating room where he underwent I&D yesterday with irrigation and pump site change. It was not removed. He currently is having some pain but states it is somewhat improved. He denies any fevers but did have an episode of shaking chills this morning. Blood cultures are pending. He remains on vancomycin and appears to be tolerating this well. Since admission to the hospital, he has been afebrile. Aztreonam has been added this afternoon with return of gram-negative rods. He does have a penicillin allergy; however, he states he had penicillin as a child and does not remember the allergy. His parents are present during my examination and they do not recall his allergy either. He currently denies any cough, shortness of breath, nausea or abdominal pain. He did have one episode of vomiting this morning. He denies any urinary symptoms. He denies any loss of motor function or sensation. All remaining review of systems are reviewed and are unremarkable except or as noted above. PAST MEDICAL HISTORY: Significant for lung cancer status post chemo, type 2 diabetes, gastroparesis, hypertension, epilepsy, neurogenic bladder, neuropathy. PAST SURGICAL HISTORY: Significant for pacemaker, pain pump, colonoscopy, EGD, knee scope, tonsillectomy, adenoid removal, lymph node biopsy. FAMILY HISTORY: Noncontributory. SOCIAL HISTORY: Significant for history of tobacco use. He quit in 2000. He denies any alcohol or drug use. He lives at home with his family. ALLERGIES: PENICILLIN. CURRENT MEDICATIONS: Include insulin, magnesium, aztreonam, Dilaudid, folic acid, Effexor, multivitamin, Norvasc, Keppra, magnesium, Lopressor, Neurontin, Protonix, vancomycin, albuterol, Tylenol, Maalox, milk of magnesia, Zofran, EpiPen, Reglan, Phenergan. PHYSICAL EXAMINATION: VITAL SIGNS: He is afebrile, pulse 86, respiratory rate 16, blood pressure 126/78 and oxygen saturation is 98% on room air. GENERAL: He is awake, alert and oriented x3. He is in no acute distress. HEAD, EYES, EARS, NOSE, AND THROAT: Mucous membranes are moist. Extraocular muscles are intact. HEART: Regular. LUNGS: Clear bilaterally. ABDOMEN: Soft and nondistended. There is no lower extremity edema. SKIN: Without rash. Examination of the back incision reveals the dressing to be clean, dry and intact. This is tender to light palpation. There is no surrounding warmth or erythema. There is no purulent drainage or bleeding. Examination of the pain pump shows the incision to be closed; however there is weeping of serous fluid that is also soaking the abdominal binder which is in place postoperatively. LABORATORY STUDIES: CBC today reveals a white blood cell count of 6.7, hemoglobin 9.7, platelets 216. Chemistry panel reveals a sodium of 131, potassium 3.6, chloride 96, bicarbonate 29, BUN 17, creatinine 1.7, glucose is 262. LFTs were normal on admission. A urinalysis was unremarkable. Again, superficial culture from the 11th is growing gram negative isabelel and Staph aureus. Blood cultures from the 11th are pending. A deep back drainage culture from the 11th is also growing Staph aureus. Abdominal CT done in the ER shows an 8 cm fluid collection around the implanted device consistent with abscess with rim enhancing fluid tracking along the course of the lead into the upper lumbar region with a focal 2 cm abscess in the left paraspinal musculature. Lumbar CT spine also shows a 32 x 22 x 18 mm fluid collection at the L3 spinous process. ASSESSMENT AND PLAN: Infected intrathecal pump with associated abscesses which appear to be polymicrobial. At this time I will change his aztreonam to imipenem and continue him on vancomycin pending the results of his cultures. Blood cultures are pending and I will follow those. Inflammatory markers will also be checked. I will follow along with you. Thank you for this consultation. AMILCAR
[2017-01-15] MEDS: MAGNESIUM SULFATE 1GM / D5W 1 GM in PREMIXED IN D5W 100 ML IV SCH ×2 (15:42→16:44)
[2017-01-15] MEDS ORDERED: IMIPENEM/CILASTATIN IV 500 MG in DEXTROSE 5% 100ML 100 ML IV SCH (16:00)
[2017-01-15] MEDS ORDERED: IMIPENEM-CILASTATIN 250 MG in DEXTROSE 5% 100ML 100 ML IV SCH (16:30)
--- NOTE | 2017-01-15 16:51 | Pharmacy Progress Note ---
Pharmacy Antibiotic Prog Note Date of Service Jan 15, 2017. Subjective The patient is currently receiving vancomycin 1500mg IV every 12 hours. The patient is currently on day # 2 of vancomycin IV therapy. Objective Height (Feet): 5 Height (Inches): 8.00 Weight (Kilograms): 78.200 Levels: Item Value Date Time Vancomycin Level Trough 25.3 mcg/ml 01/15/17 0725 Previous dose hung 01/14 @2045. Not steady state. Lab Results (24hrs): Test 01/15/17 07:25 01/15/17 08:03 01/15/17 11:59 01/15/17 14:49 White Blood Count 6.75 K/uL (4.8-10.8) Red Blood Count 3.29 M/uL (4.7-6.1) Hemoglobin 9.7 g/dL (14.0-18.0) Hematocrit 27.1 % (42-52) Mean Corpuscular Volume 82.4 fL (80-100) Mean Corpuscular Hemoglobin 29.5 pg (25-34) Mean Corpuscular Hemoglobin Concent 35.8 g/dl (32-36) Platelet Count 216 K/uL (130-400) Mean Platelet Volume 8.8 fL (7.4-10.4) Neutrophils (%) (Auto) 65.8 % Lymphocytes (%) (Auto) 24.7 % Monocytes (%) (Auto) 8.0 % Eosinophils (%) (Auto) 0.9 % Basophils (%) (Auto) 0.3 % Neutrophils # (Auto) 4.44 K/uL (1.4-6.5) Lymphocytes # (Auto) 1.67 K/uL (1.2-3.4) Monocytes # (Auto) 0.54 K/uL (0.11-0.59) Eosinophils # (Auto) 0.06 K/uL (0-0.5) Basophils # (Auto) 0.02 K/uL (0-0.2) RDW Standard Deviation 39.6 fL (36.4-46.3) RDW Coefficient of Variation 13.3 % (11.5-14.5) Immature Granulocyte % (Auto) 0.3 % Immature Granulocyte # (Auto) 0.02 K/uL (0.00-0.02) Sodium Level 133 mmol/L (136-145) Potassium Level 3.6 mmol/L (3.5-5.1) Chloride Level 96 mmol/L (98-107) Carbon Dioxide Level 29 mmol/L (21-32) Anion Gap 8.0 mmol/L (3-11) Blood Urea Nitrogen 17 mg/dl (7-18) Creatinine 1.70 mg/dl (0.60-1.40) Est Creatinine Clear Calc Drug Dose 49.7 ml/min Estimated GFR () 52.9 Estimated GFR (Non- 45.7 BUN/Creatinine Ratio 9.9 (10-20) Random Glucose 253 mg/dl (70-99) Calcium Level 8.2 mg/dl (8.5-10.1) Magnesium Level 1.0 mg/dl (1.8-2.4) Vancomycin Level Trough 25.3 mcg/ml (SEE COMMENT) Bedside Glucose 262 mg/dl (70-99) 73 mg/dl (70-99) Erythrocyte Sedimentation Rate 11 mm/hr (0-14) C-Reactive Protein < 0.29 mg/dl (0-0.29) Test 01/15/17 16:25 Micro Results: 01/14 incision site- Staph aureus, GNB- ID and sens pending 01/14 blood x2 pending 01/14 drainage deep lower back- Staph aureus, sens pending Recent Pertinent Medications Item Value Date Time Vancomycin HCl 530 ml @ 200 mls/hr 01/14/17 2000 1500 mg/Sodium Q12H/IV 01/14/17 2045 Chloride Vancomycin HCl 270 ml @ 125 mls/hr 01/14/17 1115 1000 mg/Sodium 1115 ONCE/IV 01/14/17 1209 Chloride Vancomycin HCl 1 gm 01/14/17 0809 (Vancomycin 1gm/ NOW STAT/IV 01/14/17 0833 270ml Nss) Imipenem/ 110 ml @ 105 mls/hr 01/15/17 2200 Cilastatin Sodium Q6H/IV 250 mg/Dextrose Imipenem/ 110 ml @ 100 mls/hr 01/15/17 1600 Cilastatin Sodium Q6H/IV 500 mg/Dextrose Assessment & Plan This drug level is: Supratherapeutic. Not yet steady state and renal function has worsened. Will hold dose and restart at a lower dose and interval if random level is less than 18 mcg/ml. Change to vancomycin 1250 mg IV every 14 hours. Goal trough level estimate: between 15-20 mcg/mL. Random level has been ordered for: 01/15/17 @ 1600.Level is pending. Pharmacy will continue to follow and will adjust dose/frequency as necessary. Thank you
--- NOTE | 2017-01-15 17:27 | Progress Note ---
Internal Med Progress Note Date of Service: Jan 15, 2017. Provider Documentation: SUBJECTIVE: s/p I and D of intrathecal pump site afebrile lot of pain at incision site still has significant nausea not able to eat much no sob OBJECTIVE: Vital Signs-as noted below Exam: General-alert and oriented. Not in distress ENT-normal hearing Neck-no neck masses Lungs-cta b/l no wheezing no crackles Heart-s1 and s2 heard regular rhythm, no murmurs Abdomen-soft bowel sounds present non tender no distension Extremities no edema present no erythema musculoskeletal s/p I and D of intrathecal pump site at L3 area-in dressing Neuro-alert and oriented moves extremities Lab data as noted below. ASSESSMENT & PLAN: This is a 51-year-old male who presents with leaking from the intrathecal pump. 1. Intrathecal pump leakage, seroma versus abscess at L3 level. s/p I and D by pain management cx growing staph and gm negative bacilli on iv vanco imipenem added by ID await final cx 2. Chronic pain syndrome from the metastatic lung cancer. We will place him on IV and po Dilaudid p.r.n. pain management on board. 3. Metastatic lung cancer. The patient is currently no longer on chemo and is going to see Dr. Amanda next week for further plan of care. 4. History of diabetes. Lantus 25units qhs and iss will monitor. 5. History of gastroparesis and on gastric pacemaker. Currently, having nausea and vomiting and CAT scan showed esophagitis. On PPI Consulted GI. 6. History of hypertension. Continue amlodipine and Lopressor. We will monitor the blood pressure. 7. History of epilepsy. Continue Keppra. Currently stable. 8. History of neurogenic bladder. We will monitor. 9. Deep venous thrombosis prophylaxis, SCDs for now. DISPOSITION: Monitor in medical floor. Expect to discharge home and follow with family doctor. Level 1 full code. Vital Signs: Date Time Temp Pulse Resp B/P (MAP) Pulse Ox O2 Delivery O2 Flow Rate FiO2 01/15/17 14:58 37.0 88 16 122/75 (91) 99 Room Air 01/15/17 12:45 37.1 86 16 126/78 (94) 98 01/15/17 11:39 84 16 114/72 (86) 99 Nasal Cannula 2.0 01/15/17 07:10 Room Air 01/15/17 07:00 37.0 93 16 142/78 (99) 94 Room Air 01/15/17 03:42 36.5 93 16 117/75 (89) 100 Nasal Cannula 2.0 01/14/17 23:30 Room Air 01/14/17 22:46 36.9 88 18 127/79 (95) 99 Room Air 01/14/17 20:28 116/70 (85) 01/14/17 19:41 37.0 92 18 90/49 (63) 99 Room Air 01/14/17 18:35 37.1 90 16 110/71 (84) 100 Room Air 01/14/17 17:35 36.7 89 18 169/88 (115) 97 Room Air Lab Results: Results Past 24 Hours Test 01/14/17 17:31 01/14/17 20:31 01/14/17 22:44 01/15/17 00:57 Range/Units Bedside Glucose 256 308 290 281 70-99 mg/dl Test 01/15/17 07:25 01/15/17 08:03 01/15/17 11:59 01/15/17 14:49 Range/Units White Blood Count 6.75 4.8-10.8 K/uL Red Blood Count 3.29 4.7-6.1 M/uL Hemoglobin 9.7 14.0-18.0 g/dL Hematocrit 27.1 42-52 % Mean Corpuscular Volume 82.4 80-100 fL Mean Corpuscular Hemoglobin 29.5 25-34 pg Mean Corpuscular Hemoglobin Concent 35.8 32-36 g/dl Platelet Count 216 130-400 K/uL Mean Platelet Volume 8.8 7.4-10.4 fL Neutrophils (%) (Auto) 65.8 % Lymphocytes (%) (Auto) 24.7 % Monocytes (%) (Auto) 8.0 % Eosinophils (%) (Auto) 0.9 % Basophils (%) (Auto) 0.3 % Neutrophils # (Auto) 4.44 1.4-6.5 K/uL Lymphocytes # (Auto) 1.67 1.2-3.4 K/uL Monocytes # (Auto) 0.54 0.11-0.59 K/uL Eosinophils # (Auto) 0.06 0-0.5 K/uL Basophils # (Auto) 0.02 0-0.2 K/uL RDW Standard Deviation 39.6 36.4-46.3 fL RDW Coefficient of Variation 13.3 11.5-14.5 % Immature Granulocyte % (Auto) 0.3 % Immature Granulocyte # (Auto) 0.02 0.00-0.02 K/uL Sodium Level 133 136-145 mmol/L Potassium Level 3.6 3.5-5.1 mmol/L Chloride Level 96 98-107 mmol/L Carbon Dioxide Level 29 21-32 mmol/L Anion Gap 8.0 3-11 mmol/L Blood Urea Nitrogen 17 7-18 mg/dl Creatinine 1.70 0.60-1.40 mg/dl Est Creatinine Clear Calc Drug Dose 49.7 ml/min Estimated GFR () 52.9 Estimated GFR (Non- 45.7 BUN/Creatinine Ratio 9.9 10-20 Random Glucose 253 70-99 mg/dl Calcium Level 8.2 8.5-10.1 mg/dl Magnesium Level 1.0 1.8-2.4 mg/dl Vancomycin Level Trough 25.3 SEE COMMENT mcg/ml Bedside Glucose 262 73 70-99 mg/dl Erythrocyte Sedimentation Rate 11 0-14 mm/hr C-Reactive Protein < 0.29 0-0.29 mg/dl Test 01/15/17 16:25 01/15/17 16:47 Range/Units Random Vancomycin Level 20.2 mcg/ml Bedside Glucose 229 70-99 mg/dl
[2017-01-15] MEDS ORDERED: VANCOMYCIN INJ 1,250 MG in SODIUM CHLORIDE 0.9% 250ML 250 ML IV SCH (18:00)
[2017-01-15] MEDS ORDERED: VANCOMYCIN INJ 1,250 MG in SODIUM CHLORIDE 0.9% 500ML 500 ML IV SCH (18:00)
[2017-01-15] MEDS: LORAZEPAM 1 MG TAB PO PRN (18:09)
[2017-01-15] MEDS ORDERED: VANCOMYCIN INJ 500 MG in SODIUM CHLORIDE 0.9% 250ML 250 ML IV SCH (20:00)
[2017-01-15] MEDS ORDERED: MAGNESIUM OXIDE 400 MG TAB PO SCH (21:00)
[2017-01-15] MEDS ORDERED: INSULIN GLARGINE SOLOSTAR 100 UNITS/ML 3 ML PEN SC SCH (21:00)
[2017-01-15] MEDS: IMIPENEM-CILASTATIN 250 MG in DEXTROSE 5% 100ML 100 ML IV SCH (22:08)
[2017-01-15 22:50] VITALS: BP 135/87; PULSE 83; TEMP 36.8; O2SAT 98
[2017-01-16] MEDS: HYDROmorphone INJ 1 MG/ML SYR IV PRN ×4 (00:10→21:03)
[2017-01-16] MEDS: ONDANSETRON INJ 2 MG/ML 2 ML VIAL IV PRN ×3 (00:10→21:03)
[2017-01-16] MEDS: METOCLOPRAMIDE HCL 10 MG TAB PO PRN ×2 (03:57→16:38)
[2017-01-16] MEDS: IMIPENEM-CILASTATIN 250 MG in DEXTROSE 5% 100ML 100 ML IV SCH ×4 (04:09→21:58)
[2017-01-16 07:06] VITALS: BP 157/98; PULSE 85; TEMP 36.6; O2SAT 98
[2017-01-16 07:13] LABS: BASO % 0.7 %; BASO ABS # 0.03 K/uL (0-0.2); EOS % 6.5 %; HEMATOCRIT 23.9 % (42-52); IG% 0.5 %; MEAN CELL VOLUME 83.6 fL (80-100); MEAN CORPUSCULAR HEMOGLOBIN 30.1 pg (25-34); MEAN PLATELET VOLUME 9.1 fL (7.4-10.4); MONO % 9.7 %; NEUT % 52.6 %; PLATELET COUNT 177 K/uL (130-400); RED BLOOD COUNT 2.86 M/uL (4.7-6.1); WHITE BLOOD COUNT 4.34 K/uL (4.8-10.8)
--- NOTE | 2017-01-16 07:23 | Gastrointestinal Consultation ---
Gastrointestinal Consultation Date of Consultation: Jan 16, 2017 Attending Physician: Dany Consulting Physician: Anastacio Reason for Consultation: N/V, esophagitis History of Present Illness Patient is a 51 year old male w/ history of lung ca s/p resection, on chemotherapy, IDDM, HTN, gastroparesis w/ gastric pacer placement and chronic pain admitted to [facility] for abdominal pain and incision site drainage from his intrathecal pump which was placed on December 25 w/ CT evidence of abscess. GI was consulted for evaluation on nausea and esophagitis. Of note he caries a history of severe gastroparesis, chemo induced N/V and has been admitted in August and September for similar symptoms with a good response to IV Emend. Pt is evaluated this AM. Nursing staff is in room. GI was consulted for nausea and abnormal CT scan suggestive of esophagitis. Pt tells me about one week ago there was worsening upper abdominal pain, nausea and vomiting. At first the emesis was bilious and food, however, he notes that started yesterday his emesis was black, gritty with some mucous. He denies seeing any BRB. Most recent bout of emesis was this AM, was black patient. No painful/difficulty swallowing. hE has been having diarrhea. Explains black, sticky diarrhea x 4 days 2-3 BMs daily. Most recently moved his BMs this AM and was dark and sticky per pt. Nursing staff tells me they have not seen any BMs/emesis. Denies NSAIDs or ETOH use. Tells me this since this AM he has not had any more nausea or vomiting and has tolerated tomato soup, crackers and fluid. Hypertensive and tachycardiac this AM. H&H 8.6/24 with 2 pt drop since admission. Baseline appears HGB 9/10 EGD 04/21/13: savmorro-reyes grade [address] ABD Pelvis 01/14/17: Rim-enhancing 8 cm fluid collection surrounding the implanted device in the right ventral abdominal wall consistent with abscess. Rim-enhancing fluid also surrounds the lead throughout its course along the right lateral abdominal wall and into the upper lumbar region. Focal 2 cm abscess in the left paraspinal musculature. Marked circumferential bladder wall thickening. This could suggest neurogenic bladder or severe chronic outlet obstruction possibly due to prostatomegaly, although evaluation for underlying bladder wall irregularity/soft tissue neoplasm is limited given underdistention in the severe degree of bladder wall thickening. Urologic consultation could be considered if clinically warranted. Apparent circumference of distal esophageal wall thickening. This could suggest esophagitis. If clinically warranted, fluoroscopic upper GI exam could be obtained for further evaluation. Past Medical/Surgical History Medical Problems: (1) Acute kidney injury Status: Acute (2) Altered mental status Status: Acute (3) Anemia Status: Acute (4) Chronic pain Status: Acute (5) Dehydration Status: Acute (6) Dehydration Status: Acute (7) Dehydration Status: Acute (8) Dehydration Status: Acute (9) Diabetes mellitus with hyperglycemia Status: Acute (10) Failure of outpatient treatment Status: Acute (11) Hypomagnesemia Status: Acute (12) Hypomagnesemia Status: Acute (13) Intractable vomiting Status: Acute (14) Intractable vomiting Status: Acute (15) Intrathecal pump infection Status: Acute (16) Orthostatic hypotension Status: Acute (17) Vomiting Status: Acute (18) Vomiting Status: Acute Past Medical History: anemia, lung CA, esophagitis, gastroparesis, IDDM, HTN, N/V, epilepsy, neuropathy, neurogenic bladder Past Surgical History: EGD, Colonoscopy, left lobectomy, Cholecystectomy, T&A, TKR, gastric pump placement intrathecal pain pump placement, tonsillectomy, adenoidectomy, lymphadenectomy via thoracoscopy Family History Cancer Diabetes mellitus Hypertension Social History Smoking Status: Former Smoker Alcohol Use: none Drug Use: none Marital Status: Housing Status: lives with family Occupation Status: disabled Allergies Coded Allergies: BEE STING (Verified Allergy, Mild, SWELLING AT SITE, SOB, 01/14/17) Penicillins (Unverified Allergy, Unknown, "SINCE "-Amoxicillin, ) Current Medications Home Meds and Scripts Medications Dose Route/Sig Max Daily Dose Days Date Category Dose Instructions Neurontin (Gabapentin) 600 Mg Tab 1 Tab PO TID 30 01/14/17 Rx Ventolin Hfa (Albuterol) 200 Puffs/00374 Mcg Aers 2 Puffs INH Q6H PRN 01/14/17 Rx Norvasc (Amlodipine Besylate) 10 Mg Tab 5 Mg PO QAM 01/14/17 Rx Keppra (Levetiracetam) 750 Mg Tab 750 Mg PO BID 12/19/16 Reported Folvite (Folic Acid) 1 Mg Tab 1 Tab PO QAM 90 12/19/16 Reported Novolog (Insulin Aspart) 100 Units/Ml Inj 5 Units SC ACHS 10/23/16 Reported SLIDING SCALE PER MD Effexor Xr (Venlafaxine Hcl) 37.5 Mg Cap 37.5 Mg PO QAM 30 10/23/16 Reported Protonix (Pantoprazole Sodium) 40 Mg Tab 40 Mg PO QAM 10/14/16 Reported Tylenol (Acetaminophen) 325 Mg Tab 650 Mg PO TID PRN 10/14/16 Reported Phenergan Suppository (Promethazine HCl) 25 Mg Supp 25 Mg MO Q4H PRN 10/14/16 Reported Reglan (Metoclopramide Hcl) 10 Mg Tab 10 Mg PO ACHS PRN 08/25/16 Reported Lopressor (Metoprolol Tartrate) 25 Mg Tab 25 Mg PO BID 08/25/16 Reported Slow-Mag Tab (Magnesium Chloride) 64 Mg Tabcr 64 Mg PO BID 08/25/16 Reported Dilaudid (Hydromorphone Hcl) 2 Mg Tab 8 Mg PO Q8 PRN 08/25/16 Reported Ondansetron HCl (Ondansetron) 4 Mg Tab 8 Mg PO Q8 PRN 08/15/16 Reported Aspirin Ec (Aspirin) 81 Mg Tab 81 Mg PO QAM 08/05/16 Reported Lantus (Insulin Glargine) 100 Unit/Ml Inj 25 Units SC QPM 08/05/16 Reported Epipen (Epinephrine) 0.3 Mg/0.3 Ml Inj 0.3 Mg IM UD PRN 04/16/13 Reported Multivitamins (Multiple Vitamin) 1 Cap Cap 1 Cap PO QAM 04/16/13 Reported Review of Systems Constitutional: No fever, No chills Respiratory: No cough, No shortness of breath Cardiac: No chest pain, No edema Abdomen: + vomiting, + diarrhea, + GI bleeding, No pain, No nausea, No constipation Physical Exam Date Time Temp Pulse Resp B/P (MAP) Pulse Ox O2 Delivery O2 Flow Rate FiO2 01/16/17 07:06 36.6 85 18 157/98 (117) 98 Room Air 01/15/17 23:45 Room Air 01/15/17 22:50 36.8 83 16 135/87 (103) 98 Room Air 01/15/17 15:30 Room Air 01/15/17 14:58 37.0 88 16 122/75 (91) 99 Room Air 01/15/17 12:45 37.1 86 16 126/78 (94) 98 01/15/17 11:39 84 16 114/72 (86) 99 Nasal Cannula 2.0 General Appearance: no apparent distress Eyes: PERRL ENT: hearing grossly normal Neck: supple Respiratory/Chest: lungs clear, normal breath sounds Cardiovascular: regular rate, rhythm, no gallop Abdomen: normal bowel sounds, non tender, soft, no organomegaly Neurologic/Psych: alert, normal mood/affect, oriented x 3 Skin: normal color, no jaundice Laboratory Results Last 24 Hours Test 01/15/17 07:25 01/15/17 08:03 01/15/17 11:59 01/15/17 14:49 White Blood Count 6.75 K/uL Red Blood Count 3.29 M/uL Hemoglobin 9.7 g/dL Hematocrit 27.1 % Mean Corpuscular Volume 82.4 fL Mean Corpuscular Hemoglobin 29.5 pg Mean Corpuscular Hemoglobin Concent 35.8 g/dl Platelet Count 216 K/uL Mean Platelet Volume 8.8 fL Neutrophils (%) (Auto) 65.8 % Lymphocytes (%) (Auto) 24.7 % Monocytes (%) (Auto) 8.0 % Eosinophils (%) (Auto) 0.9 % Basophils (%) (Auto) 0.3 % Neutrophils # (Auto) 4.44 K/uL Lymphocytes # (Auto) 1.67 K/uL Monocytes # (Auto) 0.54 K/uL Eosinophils # (Auto) 0.06 K/uL Basophils # (Auto) 0.02 K/uL RDW Standard Deviation 39.6 fL RDW Coefficient of Variation 13.3 % Immature Granulocyte % (Auto) 0.3 % Immature Granulocyte # (Auto) 0.02 K/uL Sodium Level 133 mmol/L Potassium Level 3.6 mmol/L Chloride Level 96 mmol/L Carbon Dioxide Level 29 mmol/L Anion Gap 8.0 mmol/L Blood Urea Nitrogen 17 mg/dl Creatinine 1.70 mg/dl Est Creatinine Clear Calc Drug Dose 49.7 ml/min Estimated GFR () 52.9 Estimated GFR (Non- 45.7 BUN/Creatinine Ratio 9.9 Random Glucose 253 mg/dl Calcium Level 8.2 mg/dl Magnesium Level 1.0 mg/dl Vancomycin Level Trough 25.3 mcg/ml Bedside Glucose 262 mg/dl 73 mg/dl Erythrocyte Sedimentation Rate 11 mm/hr C-Reactive Protein < 0.29 mg/dl Test 01/15/17 16:25 01/15/17 16:47 01/15/17 20:45 01/16/17 06:18 Random Vancomycin Level 20.2 mcg/ml Bedside Glucose 229 mg/dl 243 mg/dl White Blood Count 4.34 K/uL Red Blood Count 2.86 M/uL Hemoglobin 8.6 g/dL Hematocrit 23.9 % Mean Corpuscular Volume 83.6 fL Mean Corpuscular Hemoglobin 30.1 pg Mean Corpuscular Hemoglobin Concent 36.0 g/dl Platelet Count 177 K/uL Mean Platelet Volume 9.1 fL Neutrophils (%) (Auto) 52.6 % Lymphocytes (%) (Auto) 30.0 % Monocytes (%) (Auto) 9.7 % Eosinophils (%) (Auto) 6.5 % Basophils (%) (Auto) 0.7 % Neutrophils # (Auto) 2.29 K/uL Lymphocytes # (Auto) 1.30 K/uL Monocytes # (Auto) 0.42 K/uL Eosinophils # (Auto) 0.28 K/uL Basophils # (Auto) 0.03 K/uL RDW Standard Deviation 41.3 fL RDW Coefficient of Variation 13.6 % Immature Granulocyte % (Auto) 0.5 % Immature Granulocyte # (Auto) 0.02 K/uL Impression Patient is a 51 year old male admitted for abscess of recently placed intrathecal pain pump - GI was consulted for n/v. Pt is no longer on chemotherapy. This AM he tells me he is no longer nausea, last bout of emesis was this AM and was coffee ground appearance, also has been having some dark, tarry stools x 4 days. He is hypertensive and tachycardiac this AM. Plan - Suspected UGI bleed - Trend H&H - Transfuse as needed - Monitor stools and emesis - heme stools and emesis - IV PPI BID - Hold NSAIDs - Clear liquids today - NPO after midnight - plan for EGD 01/17/17 - Abdominal pain/diarrhea - KUB to rule out obstruction w/ overflow diarrhea - Stool culture - Stool c.diff Gastroparesis - Zofran PRN - Reglan PRN - Phenergan suppository PRN - if nausea/vomiting return and persist can use one dose of emend GI to follow, please call with questions or concerns. 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 Due to severe gastroparesis and food in stomach during recent EGD, we will keep NPO except sips/chips/meds today. If there is a drop in H&H overnight and any signs of GI bleeding we will repeat EGD tomorrow. Will add Carafate QID. I saw and evaluated the patient. He has a long history of gastroparesis and had a prior patient placed several years ago. We are consult at for evaluation of nausea, the patient notes his symptoms are resolved. He did mention having dark stool over the last few days. Of note he did have an upper endoscopy performed at an outside hospital 7-10 days ago. This was notable for esophagitis and a large amount of retained contents in the stomach. Physical examination No obvious distress No abdominal tenderness Impression: Patient with a history of erosive esophagitis and severe gastroparesis. At this time he has no nausea is of emend if his symptoms recur. The patient is a very poor historian and did not recall his recent upper endoscopy from last week. I would offer a repeat look if he does have a drop in his his hemoglobin or hematocrit this evening. I would suggest he leave the patient nothing by mouth until we are able to reevaluate him tomorrow.
[2017-01-16 07:40] LABS: BUN/CREATININE RATIO 8.9 (10-20); COMPLETE YES; CREATININE 1.7 mg/dl (0.60-1.40); MAGNESIUM 1.5 mg/dl (1.8-2.4); POTASSIUM 3.4 mmol/L (3.5-5.1)
[2017-01-16] MEDS: HYDROmorphone HCL 2 MG TAB PO PRN (07:47)
[2017-01-16] MEDS: LEVETIRACETAM 250 MG TAB PO SCH ×2 (08:23→21:13)
[2017-01-16] MEDS: METOPROLOL TARTRATE 25 MG TAB PO SCH ×2 (08:24→21:12)
[2017-01-16] MEDS: GABAPENTIN 600 MG TAB PO SCH ×3 (08:24→21:12)
[2017-01-16] MEDS: MAGNESIUM CHLORIDE 64MG DELAYED REL TAB PO SCH ×2 (08:24→21:13)
[2017-01-16] MEDS: MULTIVITAMIN TAB PO SCH (08:24)
[2017-01-16] MEDS: AMLODIPINE BESYLATE 5 MG TAB PO SCH (08:24)
[2017-01-16] MEDS: VENLAFAXINE HCL XR 37.5 MG CAPXR PO SCH (08:25)
[2017-01-16] MEDS: INSULIN ASPART 100 UNITS/ML 3 ML PEN SC SCH ×3 (08:35→18:43)
[2017-01-16] MEDS: NSS + 20MEQ KCL 1000ML 1,000 ML IV SCH (09:59)
--- NOTE | 2017-01-16 09:59 | DIAGNOSTIC IMAGING REPORT ---
KUB CLINICAL HISTORY: diarrhea, nausea, vomiting, r/o partial SBO COMPARISON STUDY: 12/26/2016 FINDINGS: There is no evidence of pathologic bowel dilatation. There is moderate enteric material within the stomach. There are no transition zone to indicate bowel obstruction. There is a left-sided gastric stimulator. There is a right lower quadrant device possibly representing a pain pump. IMPRESSION: 1. Debris-filled stomach. This could indicate a motility disorder 2. No evidence of bowel obstruction. Electronically signed by: Bruce Salamanca M.D. 01/16/2017 9:58 AM Dictated Date/Time: 01/16/2017 9:56 AM
[2017-01-16] MEDS: PANTOprazole INJ 40 MG in SYRINGE 0 ML IV SCH ×2 (10:18→21:11)
--- NOTE | 2017-01-16 10:31 | Pain Management Progress Note ---
Pain Management Progress Note Date of Service Jan 16, 2017. Subjective Nikhil reports improved pain relief this morning. He ambulated down the lutz yesterday and is ambulating this morning. Denies any episodes of chills this morning. Objective Vital Signs: Last Vital Signs Documentation Date Time Temp Pulse Resp B/P (MAP) Pulse Ox O2 Delivery O2 Flow Rate FiO2 01/16/17 07:23 Room Air 01/16/17 07:06 36.6 85 18 157/98 (117) 98 01/15/17 11:39 2.0 Physical Exam: He is awake and alert. He has been afebrile last 24 hours. Inspection abdominal wound demonstrates no drainage. Inspection of the back wound demonstrates no clear drainage present time. The last 24 hours, after last dressing change, the scant amount of clear wetness over the gauze. Laboratory Laboratory Findings 01/16/17 06:18 Red Blood Count 2.86 L, Mean Corpuscular Volume 83.6, Mean Corpuscular Hemoglobin 30.1, Mean Corpuscular Hemoglobin Concent 36.0, Mean Platelet Volume 9.1, Neutrophils (%) (Auto) 52.6, Lymphocytes (%) (Auto) 30.0, Monocytes (%) ( Auto) 9.7, Eosinophils (%) (Auto) 6.5, Basophils (%) (Auto) 0.7, Neutrophils # ( Auto) 2.29, Lymphocytes # (Auto) 1.30, Monocytes # (Auto) 0.42, Eosinophils # ( Auto) 0.28, Basophils # (Auto) 0.03 Imaging Other Findings RUN DATE: 01/16/17 [facility] PAGE 1 RUN TIME: 9153 Specimen Inquiry PATIENT: NIKHIL MARTINS LOC: [facility] U # : [id number] AGE/SX: 51/M ROOM: [facility] REG : 01/14/[address]: Aguila Saenz MD : 1965 BED: 2 DIS : STATUS: ADM IN TLOC: SPEC #: [id number] VADIM: 01/14/17 STATUS: RES REQ #: [id number] RECD: 01/14/[address]: Aguila Saenz MD SOURCE: DRAIN-DEEP ENTR: 01/14/[address]: Bran Burgess M.D. SPDESC: BACK Idalmis Lares DO ORDERED: AER/BAY CULTSMR COMMENTS: SOURCE:LEAKAGE AROUND CATHETER SITE PUMP OF RIGHT BACK Procedure Result Verified Site GRAM STAIN Final 01/15/17-818 RESULT RARE WBCs SEEN FEW GRAM POSITIVE COCCI OR AER/BAY CULT Preliminary 01/16/17-843 Organism 1 STAPHYLOCOCCUS AUREUS QUANITY FEW SENS SENSITIVITY TO FOLLOW 1. STAPHYLOCOCCUS AUREUS Target Route Dose RX AB Cost M.I.C. IQ ------ ----- ------ -- ------ -------- - ------ TRIMET/SULFA S <=0.5/ 9.5 * OXACILLIN S <=0.25 VANCOMYCIN S 2 ERYTHROMYCIN S <=0.5 TETRACYCLINE S <=4 CLINDAMYCIN S <=0.5 DAPTOMYCIN S 1 S = SENSITIVE I = INTERMEDIATE R = RESISTANT END OF REPORT RUN DATE: 01/16/17 [facility] PAGE 1 RUN TIME: 075 Specimen Inquiry PATIENT: NIKHIL MARTINS LOC: [place] U # : [id number] AGE/SX: 51/M ROOM: [facility] REG : 01/14/[address]: Aguila Saenz MD : 1965 BED: 2 DIS : STATUS: ADM IN TLOC: SPEC #: [id number] VADIM: 01/14/17 STATUS: RES REQ #: [id number] RECD: 01/14/[address] [facility] [address]: Ana Luisa Vieyra PA-C SOURCE: INC.SITE ENTR: 01/14/[address] [facility] [address]: Bran Burgess M.D. SPDESC: JAIRNO, Fabby Villanueva , DO ORDERED: SURF [facility] CU/JAZMÍN COMMENTS: Has Specimen Been Obtained/Collected? Y Procedure Result Verified Site GRAM STAIN Final 01/14/17 RESULT MODERATE GRAM POSITIVE COCCI RARE WBCs SEEN SURFACE WOUND CULTURE Preliminary 01/16/17 Organism 1 GRAM NEGATIVE BACILLI QUANITY MODERATE SENS SENSITIVITY TO FOLLOW Organism 2 STAPHYLOCOCCUS AUREUS QUANITY MODERATE SENS SENSITIVITY TO FOLLOW 2. STAPHYLOCOCCUS AUREUS Target Route Dose RX AB Cost M.I.C. IQ ------ ----- ------ -- ------ -------- - ------ TRIMET/SULFA S <=0.5/ 9.5 * OXACILLIN S <=0.25 VANCOMYCIN S 2 ERYTHROMYCIN S <=0.5 TETRACYCLINE S <=4 CLINDAMYCIN S <=0.5 DAPTOMYCIN S 1 S = SENSITIVE I = INTERMEDIATE R = RESISTANT END OF REPORT Blood cultures no growth yet. Assessment 1. Status post irrigation and debridement of lumbar spine moment. 2. CSF leak. Recommendations 1. Continue monitoring for drainage. 2. Antibiotic therapy as per ID based on the final results of the cultures.
[2017-01-16] MEDS ORDERED: NURSING VERBAL MED ORDER ONE ×2 (10:45→17:45)
--- NOTE | 2017-01-16 11:42 | Progress Note ---
Subjective Date of Service: Jan 16, 2017. Subjective Pt evaluation today including: conversation w/ patient, physical exam, chart review, lab review pt seen in followup, oob to chair. no f/c overnight but states some shakes. still with nausea, no vomiting on ice chips. min drainage from abd wound. culture with MSSA and gnr, ID pending. tolerating abx. blood cultures negative. states he is anxious, needed ativan overnight. wbc nml, vanco trough 17.9. all remaining ros reviewed and are negative. Problem List Medical Problems: (1) Acute kidney injury Status: Acute (2) Altered mental status Status: Acute (3) Anemia Status: Acute (4) Chronic pain Status: Acute (5) Dehydration Status: Acute (6) Dehydration Status: Acute (7) Dehydration Status: Acute (8) Dehydration Status: Acute (9) Diabetes mellitus with hyperglycemia Status: Acute (10) Failure of outpatient treatment Status: Acute (11) Hypomagnesemia Status: Acute (12) Hypomagnesemia Status: Acute (13) Intractable vomiting Status: Acute (14) Intractable vomiting Status: Acute (15) Intrathecal pump infection Status: Acute (16) Orthostatic hypotension Status: Acute (17) Vomiting Status: Acute (18) Vomiting Status: Acute Objective Vital Signs Date Time Temp Pulse Resp B/P (MAP) Pulse Ox O2 Delivery O2 Flow Rate FiO2 01/16/17 07:23 Room Air 01/16/17 07:06 36.6 85 18 157/98 (117) 98 Room Air 01/15/17 23:45 Room Air 01/15/17 22:50 36.8 83 16 135/87 (103) 98 Room Air 01/15/17 15:30 Room Air 01/15/17 14:58 37.0 88 16 122/75 (91) 99 Room Air 01/15/17 12:45 37.1 86 16 126/78 (94) 98 Physical Exam General Appearance: WD/WN, no apparent distress Eyes: normal inspection, PERRL, EOMI Neck: supple Respiratory/Chest: lungs clear, normal breath sounds, no respiratory distress Cardiovascular: regular rate, rhythm, no edema Abdomen: non tender, soft Extremities: non-tender, normal inspection, no pedal edema Neurologic/Psychiatric: alert, oriented x 3 Skin: normal color, warm/dry, no rash Comments: dressing intact Laboratory Results Item Value Date Time Gram Stain - Final Resulted 01/14/17 1400 Drainage-Deep Back Gram Stain - Final Resulted 01/14/17 0600 Incision Site Abdomin, Right Lower Quadrant Blood Culture - Preliminary Resulted 01/14/17 0929 Blood NO GROWTH TO DATE. Blood Culture - Preliminary Resulted 01/14/17 0911 Blood NO GROWTH TO DATE. Last 24 Hours Test 01/15/17 11:59 01/15/17 14:49 01/15/17 16:25 01/15/17 16:47 Bedside Glucose 73 mg/dl 229 mg/dl Erythrocyte Sedimentation Rate 11 mm/hr C-Reactive Protein < 0.29 mg/dl Random Vancomycin Level 20.2 mcg/ml Test 01/15/17 20:45 01/16/17 06:18 01/16/17 08:28 Bedside Glucose 243 mg/dl 160 mg/dl White Blood Count 4.34 K/uL Red Blood Count 2.86 M/uL Hemoglobin 8.6 g/dL Hematocrit 23.9 % Mean Corpuscular Volume 83.6 fL Mean Corpuscular Hemoglobin 30.1 pg Mean Corpuscular Hemoglobin Concent 36.0 g/dl Platelet Count 177 K/uL Mean Platelet Volume 9.1 fL Neutrophils (%) (Auto) 52.6 % Lymphocytes (%) (Auto) 30.0 % Monocytes (%) (Auto) 9.7 % Eosinophils (%) (Auto) 6.5 % Basophils (%) (Auto) 0.7 % Neutrophils # (Auto) 2.29 K/uL Lymphocytes # (Auto) 1.30 K/uL Monocytes # (Auto) 0.42 K/uL Eosinophils # (Auto) 0.28 K/uL Basophils # (Auto) 0.03 K/uL RDW Standard Deviation 41.3 fL RDW Coefficient of Variation 13.6 % Immature Granulocyte % (Auto) 0.5 % Immature Granulocyte # (Auto) 0.02 K/uL Red Blood Cell Morphology Unremarkable Sodium Level 139 mmol/L Potassium Level 3.4 mmol/L Chloride Level 102 mmol/L Carbon Dioxide Level 31 mmol/L Anion Gap 6.0 mmol/L Blood Urea Nitrogen 15 mg/dl Creatinine 1.70 mg/dl Est Creatinine Clear Calc Drug Dose 49.7 ml/min Estimated GFR () 52.9 Estimated GFR (Non- 45.7 BUN/Creatinine Ratio 8.9 Random Glucose 145 mg/dl Calcium Level 8.0 mg/dl Magnesium Level 1.5 mg/dl Random Vancomycin Level 17.9 mcg/ml Assessment and Plan (1) Intrathecal pump infection Assessment & Plan: will continue current abx for now, await final culture results and adjust abx. if blood culture remains negative, will be ok for picc and course of IV abx.
[2017-01-16] MEDS: SUCRALFATE 1 GM/10 ML UDC PO SCH ×3 (13:17→21:11)
[2017-01-16] MEDS ORDERED: POTASSIUM CHLORIDE 10 MEQ TABCR PO ONE (14:00)
[2017-01-16 14:01] VITALS: PULSE 81; O2SAT 97
[2017-01-16] MEDS: MAGNESIUM SULFATE 1GM / D5W 1 GM in PREMIXED IN D5W 100 ML IV SCH ×2 (14:04→15:36)
--- NOTE | 2017-01-16 14:44 | Pharmacy Progress Note ---
Pharmacy Antibiotic Prog Note Date of Service Jan 16, 2017. Subjective The patient is currently receiving vancomycin 1500 mg IV every 12 hours, currently on hold. The patient is currently on day # 3 of vancomycin IV therapy. Objective Height (Feet): 5 Height (Inches): 8.00 Weight (Kilograms): 78.200 Levels: Item Value Date Time Vancomycin Level Trough 25.3 mcg/ml 01/15/17 0725 Random Vancomycin Level 20.2 mcg/ml 01/15/17 1625 Random Vancomycin Level 17.9 mcg/ml 01/16/17 0618 New estimated half-life ~17 hr. Lab Results (24hrs): Test 01/15/17 14:49 01/15/17 16:25 01/16/17 06:18 01/16/17 08:28 Erythrocyte Sedimentation Rate 11 mm/hr (0-14) C-Reactive Protein < 0.29 mg/dl (0-0.29) Random Vancomycin Level 20.2 mcg/ml 17.9 mcg/ml White Blood Count 4.34 K/uL (4.8-10.8) Red Blood Count 2.86 M/uL (4.7-6.1) Hemoglobin 8.6 g/dL (14.0-18.0) Hematocrit 23.9 % (42-52) Mean Corpuscular Volume 83.6 fL (80-100) Mean Corpuscular Hemoglobin 30.1 pg (25-34) Mean Corpuscular Hemoglobin Concent 36.0 g/dl (32-36) Platelet Count 177 K/uL (130-400) Mean Platelet Volume 9.1 fL (7.4-10.4) Neutrophils (%) (Auto) 52.6 % Lymphocytes (%) (Auto) 30.0 % Monocytes (%) (Auto) 9.7 % Eosinophils (%) (Auto) 6.5 % Basophils (%) (Auto) 0.7 % Neutrophils # (Auto) 2.29 K/uL (1.4-6.5) Lymphocytes # (Auto) 1.30 K/uL (1.2-3.4) Monocytes # (Auto) 0.42 K/uL (0.11-0.59) Eosinophils # (Auto) 0.28 K/uL (0-0.5) Basophils # (Auto) 0.03 K/uL (0-0.2) RDW Standard Deviation 41.3 fL (36.4-46.3) RDW Coefficient of Variation 13.6 % (11.5-14.5) Immature Granulocyte % (Auto) 0.5 % Immature Granulocyte # (Auto) 0.02 K/uL (0.00-0.02) Red Blood Cell Morphology Unremarkable Sodium Level 139 mmol/L (136-145) Potassium Level 3.4 mmol/L (3.5-5.1) Chloride Level 102 mmol/L (98-107) Carbon Dioxide Level 31 mmol/L (21-32) Anion Gap 6.0 mmol/L (3-11) Blood Urea Nitrogen 15 mg/dl (7-18) Creatinine 1.70 mg/dl (0.60-1.40) Est Creatinine Clear Calc Drug Dose 49.7 ml/min Estimated GFR () 52.9 Estimated GFR (Non- 45.7 BUN/Creatinine Ratio 8.9 (10-20) Random Glucose 145 mg/dl (70-99) Calcium Level 8.0 mg/dl (8.5-10.1) Magnesium Level 1.5 mg/dl (1.8-2.4) Bedside Glucose 160 mg/dl (70-99) Test 01/16/17 12:17 Bedside Glucose 117 mg/dl (70-99) Renal function worse. Micro Results: 01/14 blood x2 NGTD 01/14 incision site- MSSA pansensitive (vanc ANNE MARIE =2), also GNB ID & sens pending 01/14 drainage deep back MSSA pansensitive Recent Pertinent Medications Item Value Date Time Vancomycin HCl 275 ml @ 125 mls/hr 01/16/17 1600 1250 mg/Sodium Q22H/IV Chloride Imipenem/ 110 ml @ 105 mls/hr 01/15/17 2200 Cilastatin Sodium Q6H/IV 01/16/17 1021 250 mg/Dextrose Vancomycin HCl 260 ml @ 125 mls/hr 01/15/17 2000 500 mg/Sodium TODAY@2000/IV 01/15/17 2006 Chloride Imipenem/ 110 ml @ 100 mls/hr 01/15/17 1600 Cilastatin Sodium Q6H/IV 01/15/17 1644 500 mg/Dextrose Vancomycin HCl 530 ml @ 200 mls/hr 01/14/171999 1500 mg/Sodium Q12H/IV 9/11/17 2045 Chloride Assessment & Plan These drug levels were: Supratherapeutic due to declining renal function, so several doses were held. Last vanco level in therapeutic range, so will restart with longer dosing interval. Change to vancomycin 1250 mg IV every 22 hours. Goal trough level estimate: between 15-20 mcg/mL. Trough has been ordered for: 01/18/17 before 1200 dose. Pharmacy will continue to follow and will adjust dose/frequency as necessary. Thank you
[2017-01-16 15:33] VITALS: BP 164/91; PULSE 79; TEMP 36.4; O2SAT 97
[2017-01-16] MEDS ORDERED: VANCOMYCIN INJ 1,250 MG in SODIUM CHLORIDE 0.9% 250ML 250 ML IV SCH (16:00)
--- NOTE | 2017-01-16 18:49 | Progress Note ---
Internal Med Progress Note Date of Service: Jan 16, 2017. Provider Documentation: SUBJECTIVE: resting on chair comfortably afebrile pain under control says nausea somewhat better somewhat drowsy OBJECTIVE: Vital Signs-as noted below Exam: General-alert and oriented. drowsy ENT-normal hearing Neck-no neck masses Lungs-cta b/l no wheezing no crackles Heart-s1 and s2 heard regular rhythm, no murmurs Abdomen-soft bowel sounds present non tender no distension Extremities no edema present no erythema musculoskeletal s/p I and D of intrathecal pump site at L3 area-in dressing Neuro-drowsy Lab data as noted below. ASSESSMENT & PLAN: This is a 51-year-old male who presents with leaking from the intrathecal pump. 1. Intrathecal pump leakage, seroma versus abscess at L3 level. s/p I and D by pain management cx growing staph and gm negative bacilli on iv vanco imipenem added by ID await final cx plan for picc line stable. 2. Chronic pain syndrome from the metastatic lung cancer. We will place him on IV and po Dilaudid p.r.n. pain management on board.doing ok 3. Metastatic lung cancer. The patient is currently no longer on chemo and is going to see Dr. Amanda next week for further plan of care. 4. History of diabetes. Lantus 25units qhs and iss will monitor. 5. History of gastroparesis and on gastric pacemaker. Currently, having nausea and vomiting and CAT scan showed esophagitis. On PPI Consulted GI. plan for egd in am 6. History of hypertension. Continue amlodipine and Lopressor. We will monitor the blood pressure. 7. History of epilepsy. Continue Keppra. Currently stable. 8. History of neurogenic bladder. We will monitor. 9. Deep venous thrombosis prophylaxis, SCDs for now. DISPOSITION: Monitor in medical floor. Expect to discharge home and follow with family doctor. Level 1 full code. Vital Signs: Date Time Temp Pulse Resp B/P (MAP) Pulse Ox O2 Delivery O2 Flow Rate FiO2 01/16/17 15:33 36.4 79 18 164/91 (115) 97 Room Air 01/16/17 14:01 81 14 97 01/16/17 07:23 Room Air 01/16/17 07:06 36.6 85 18 157/98 (117) 98 Room Air 01/15/17 23:45 Room Air 01/15/17 22:50 36.8 83 16 135/87 (103) 98 Room Air Lab Results: Results Past 24 Hours Test 01/15/17 20:45 01/16/17 06:18 01/16/17 08:28 01/16/17 12:17 Range/Units Bedside Glucose 243 160 117 70-99 mg/dl White Blood Count 4.34 4.8-10.8 K/uL Red Blood Count 2.86 4.7-6.1 M/uL Hemoglobin 8.6 14.0-18.0 g/dL Hematocrit 23.9 42-52 % Mean Corpuscular Volume 83.6 80-100 fL Mean Corpuscular Hemoglobin 30.1 25-34 pg Mean Corpuscular Hemoglobin Concent 36.0 32-36 g/dl Platelet Count 177 130-400 K/uL Mean Platelet Volume 9.1 7.4-10.4 fL Neutrophils (%) (Auto) 52.6 % Lymphocytes (%) (Auto) 30.0 % Monocytes (%) (Auto) 9.7 % Eosinophils (%) (Auto) 6.5 % Basophils (%) (Auto) 0.7 % Neutrophils # (Auto) 2.29 1.4-6.5 K/uL Lymphocytes # (Auto) 1.30 1.2-3.4 K/uL Monocytes # (Auto) 0.42 0.11-0.59 K/uL Eosinophils # (Auto) 0.28 0-0.5 K/uL Basophils # (Auto) 0.03 0-0.2 K/uL RDW Standard Deviation 41.3 36.4-46.3 fL RDW Coefficient of Variation 13.6 11.5-14.5 % Immature Granulocyte % (Auto) 0.5 % Immature Granulocyte # (Auto) 0.02 0.00-0.02 K/uL Red Blood Cell Morphology Unremarkable Sodium Level 139 136-145 mmol/L Potassium Level 3.4 3.5-5.1 mmol/L Chloride Level 102 98-107 mmol/L Carbon Dioxide Level 31 21-32 mmol/L Anion Gap 6.0 3-11 mmol/L Blood Urea Nitrogen 15 7-18 mg/dl Creatinine 1.70 0.60-1.40 mg/dl Est Creatinine Clear Calc Drug Dose 49.7 ml/min Estimated GFR () 52.9 Estimated GFR (Non- 45.7 BUN/Creatinine Ratio 8.9 10-20 Random Glucose 145 70-99 mg/dl Calcium Level 8.0 8.5-10.1 mg/dl Magnesium Level 1.5 1.8-2.4 mg/dl Random Vancomycin Level 17.9 mcg/ml
[2017-01-16] MEDS ORDERED: INSULIN GLARGINE SOLOSTAR 100 UNITS/ML 3 ML PEN SC SCH (21:00)
[2017-01-16] MEDS: INSULIN GLARGINE SOLOSTAR 100 UNITS/ML 3 ML PEN SC SCH (21:19)
[2017-01-16] MEDS: LORAZEPAM 1 MG TAB PO PRN (21:20)
[2017-01-16 22:54] VITALS: BP 164/101; PULSE 79; TEMP 36.6; O2SAT 97
[2017-01-17] VITALS (9 sets, daily range): BP systolic 115–181; BP diastolic 72–109; PULSE 82–94; TEMP 36.4–36.9; O2SAT 94–100
[2017-01-17] MEDS: HYDROmorphone INJ 1 MG/ML SYR IV PRN ×5 (00:31→22:22)
[2017-01-17] MEDS: METOCLOPRAMIDE HCL 10 MG TAB PO PRN ×3 (00:31→19:10)
[2017-01-17] MEDS: IMIPENEM-CILASTATIN 250 MG in DEXTROSE 5% 100ML 100 ML IV SCH ×2 (04:09→11:26)
[2017-01-17] MEDS: INSULIN ASPART 100 UNITS/ML 3 ML PEN SC SCH ×5 (06:00→21:00)
[2017-01-17] MEDS: ONDANSETRON INJ 2 MG/ML 2 ML VIAL IV PRN ×2 (06:32→18:34)
[2017-01-17 08:45] LABS: BASO % 0.4 %; BASO ABS # 0.02 K/uL (0-0.2); EOS % 8.5 %; HEMATOCRIT 25.8 % (42-52); IG% 0.2 %; LYMPH % 21.9 %; MEAN CELL VOLUME 84.3 fL (80-100); MEAN CORPUSCULAR HEMOGLOBIN 28.8 pg (25-34); MEAN CORPUSCULAR HGB CONC 34.1 g/dl (32-36); MEAN PLATELET VOLUME 8.9 fL (7.4-10.4); MONO % 11.6 %; NEUT % 57.4 %; PLATELET COUNT 180 K/uL (130-400); RED BLOOD COUNT 3.06 M/uL (4.7-6.1); WHITE BLOOD COUNT 4.57 K/uL (4.8-10.8)
[2017-01-17] MEDS: INSULIN GLARGINE SOLOSTAR 100 UNITS/ML 3 ML PEN SC SCH ×2 (09:00→22:06)
[2017-01-17] MEDS: METOPROLOL TARTRATE 25 MG TAB PO SCH ×2 (09:00→22:03)
[2017-01-17] MEDS ORDERED: EpHEDrine SULFATE INJ 50 MG/ML AMP IV PRN (09:00)
[2017-01-17] MEDS: GABAPENTIN 600 MG TAB PO SCH ×3 (09:00→22:00)
[2017-01-17] MEDS ORDERED: ATROPINE SULFATE 0.1 MG/ML 5ML SYR IV PRN (09:00)
[2017-01-17] MEDS: MULTIVITAMIN TAB PO SCH (09:00)
[2017-01-17] MEDS: SUCRALFATE 1 GM/10 ML UDC PO SCH ×4 (09:00→22:01)
[2017-01-17 09:17] LABS: BUN/CREATININE RATIO 11.1 (10-20); CALCIUM 8.7 mg/dl (8.5-10.1); CREATININE 1.2 mg/dl (0.60-1.40); MAGNESIUM 1.7 mg/dl (1.8-2.4); POTASSIUM 3.9 mmol/L (3.5-5.1)
[2017-01-17 09:30] LABS: COMPLETE YES
[2017-01-17] MEDS ORDERED: FENTANYL CITRATE INJ 50 MCG/1 ML 2 ML VIAL ONE (09:33)
--- NOTE | 2017-01-17 09:33 | Endo History and Physical ---
History & Physical Date of Service: Jan 17, 2017. Chief Complaint: MELENA Referring Physician: History of Present Illness Patient with a history of advanced lung cancer presented to the hospital with several days of melena and a drop in his hemoglobin and his hematocrit. He did have an upper endoscopy about one week ago with severe esophagitis. The exam was limited due to retained food in the stomach. Past Medical History Diabetes Past Surgical History Hx Cardiac Surgery: No Hx Internal Defibrillator: No Hx Pacemaker: No Hx Abdominal Surgery: Yes (gastric stimulator/pacemaker, gallbladder, intrathecal pain pump) Hx Post-Op Nausea and Vomiting: No Hx Cancer Surgery: Yes (upper left lobectomy 2016) Hx Thoracic Surgery: Yes (upper left lobectomy 2016) Hx Orthopedic: Yes (bilateral knee surgery) Hx Urinary Tract Surgery: No Social History Smoking Status: Former Smoker Smokeless Tobacco Use: No Hx Substance Use: Yes Hx Alcohol Use: No Allergies Coded Allergies: BEE STING (Verified Allergy, Mild, SWELLING AT SITE, SOB, 01/14/17) Penicillins (Unverified Allergy, Unknown, "SINCE "-Amoxicillin, ) Current Medications Reported Home Medications Medications Dose Route/Sig Max Daily Dose Days Date Category Dose Instructions Neurontin (Gabapentin) 600 Mg Tab 1 Tab PO TID 30 01/14/17 Rx Ventolin Hfa (Albuterol) 200 Puffs/00249 Mcg Aers 2 Puffs INH Q6H PRN 01/14/17 Rx Norvasc (Amlodipine Besylate) 10 Mg Tab 5 Mg PO QAM 01/14/17 Rx Keppra (Levetiracetam) 750 Mg Tab 750 Mg PO BID 12/19/16 Reported Folvite (Folic Acid) 1 Mg Tab 1 Tab PO QAM 90 12/19/16 Reported Novolog (Insulin Aspart) 100 Units/Ml Inj 5 Units SC ACHS 10/23/16 Reported SLIDING SCALE PER Effexor Xr (Venlafaxine Hcl) 37.5 Mg Cap 37.5 Mg PO QAM 30 10/23/16 Reported Protonix (Pantoprazole Sodium) 40 Mg Tab 40 Mg PO QAM 10/14/16 Reported Tylenol (Acetaminophen) 325 Mg Tab 650 Mg PO TID PRN 10/14/16 Reported Phenergan Suppository (Promethazine HCl) 25 Mg Supp 25 Mg MT Q4H PRN 10/14/16 Reported Reglan (Metoclopramide Hcl) 10 Mg Tab 10 Mg PO ACHS PRN 08/25/16 Reported Lopressor (Metoprolol Tartrate) 25 Mg Tab 25 Mg PO BID 08/25/16 Reported Slow-Mag Tab (Magnesium Chloride) 64 Mg Tabcr 64 Mg PO BID 08/25/16 Reported Dilaudid (Hydromorphone Hcl) 2 Mg Tab 8 Mg PO Q8 PRN 08/25/16 Reported Ondansetron HCl (Ondansetron) 4 Mg Tab 8 Mg PO Q8 PRN 08/15/16 Reported Aspirin Ec (Aspirin) 81 Mg Tab 81 Mg PO QAM 08/05/16 Reported Lantus (Insulin Glargine) 100 Unit/Ml Inj 25 Units SC QPM 08/05/16 Reported Epipen (Epinephrine) 0.3 Mg/0.3 Ml Inj 0.3 Mg IM UD PRN 04/16/13 Reported Multivitamins (Multiple Vitamin) 1 Cap Cap 1 Cap PO QAM 04/16/13 Reported Vital Signs Weight (Kilograms): 78.200 Height (Feet): 5 Height (Inches): 8.00 Date Time Temp Pulse Resp B/P (MAP) Pulse Ox O2 Delivery O2 Flow Rate FiO2 01/17/17 08:37 36.5 82 20 171/95 (120) 98 Room Air 01/17/17 08:05 36.9 82 19 156/91 98 Room Air 2.0 01/17/17 07:20 36.9 82 19 170/91 (117) 98 Room Air 01/17/17 00:00 Room Air 01/16/17 22:54 36.6 79 16 164/101 (122) 97 Room Air 01/16/17 15:33 36.4 79 18 164/91 (115) 97 Room Air 01/16/17 15:30 Room Air 01/16/17 14:01 81 14 97 Physical Exam General Appearance: no apparent distress Respiratory/Chest: Auscultation: breath sounds normal Cardiovascular: Heart Auscultation: RRR Abdomen: Inspection & Palpation: soft Assessment and Plan EGD for evaluation of melena. We've discussed the risks to include bleeding, infection, perforation and aspiration.
--- NOTE | 2017-01-17 09:50 | GI REPORT ---
Procedure Date: 01/17/2017 9:31 AM Procedure: Upper GI endoscopy Indications: Melena Medicines: Monitored Anesthesia Care Complications: No immediate complications. Estimated blood loss: Minimal. Estimated Blood Loss: Estimated blood loss was minimal. Procedure: Pre-Anesthesia Assessment: - Prior to the procedure, a History and Physical was performed, and patient medications, allergies and sensitivities were reviewed. The patient's tolerance of previous anesthesia was reviewed. - The risks and benefits of the procedure and the sedation options and risks were discussed with the patient. All questions were answered and informed consent was obtained. - Patient identification and proposed procedure were verified prior to the procedure by the physician, the nurse and the refund clerk. The procedure was verified in the procedure room. - Pre-procedure physical examination revealed no contraindications to sedation. - ASA Grade Assessment: IV - A patient with severe systemic disease that is a constant threat to life. - After reviewing the risks and benefits, the patient was deemed in satisfactory condition to undergo the procedure. - The anesthesia plan was to use monitored anesthesia care (MAC). - Immediately prior to administration of medications, the patient was re-assessed for adequacy to receive sedatives. - The heart rate, respiratory rate, oxygen saturations, blood pressure, adequacy of pulmonary ventilation, and response to care were monitored throughout the procedure. - The physical status of the patient was re-assessed after the procedure. After obtaining informed consent, the endoscope was passed under direct vision. Throughout the procedure, the patient's blood pressure, pulse, and oxygen saturations were monitored continuously. The scope was introduced through the mouth, and advanced to the body of the stomach. The upper GI endoscopy was accomplished without difficulty. The patient tolerated the procedure well. Findings: LA Grade D (one or more mucosal breaks involving at least 75% of esophageal circumference) esophagitis with evidnece of prior bleeding was found in the lower third of the esophagus. A large amount of food (residue) was found in the entire examined stomach. The stomach and duodenum could not be visualized. Impression: - LA Grade D reflux esophagitis. - A large amount of food (residue) in the stomach. - No specimens collected. Recommendation: - [facility] patient [facility] care. - Use Protonix (pantoprazole) 40 mg PO BID. - Use sucralfate suspension 1 gram PO QID. - Given history of gastoparesis we are unlikely to clear the stomach with EGD. Would suggest a bleeding scan to evaluate for evidence of active hemorrhage. Marli Chaves D.O. Marli Chaves, DO 01/17/2017 9:50:27 AM This report has been signed electronically. Note Initiated On: 01/17/2017 9:31 AM I attest to the content of the Intraoperative Record and orders documented therein, exceptions below
--- NOTE | 2017-01-17 09:56 | Anesthesiology Progress Note ---
Anesthesia Post Op Note Date & Time Jan 17, 2017 at 09:56 Vital Signs Pain Intensity: 8.0 Vital Signs Past 12 Hours Date Time Temp Pulse Resp B/P (MAP) Pulse Ox O2 Delivery O2 Flow Rate FiO2 01/17/17 09:48 18 123/70 (87) 100 Room Air 01/17/17 08:37 36.5 82 20 171/95 (120) 98 Room Air 01/17/17 08:05 36.9 82 19 156/91 98 Room Air 2.0 01/17/17 07:20 36.9 82 19 170/91 (117) 98 Room Air 01/17/17 00:00 Room Air 01/16/17 22:54 36.6 79 16 164/101 (122) 97 Room Air Notes Mental Status: alert / awake / arousable, participated in evaluation Pt Amnestic to Procedure: Yes Nausea / Vomiting: adequately controlled Pain: adequately controlled Airway Patency, RR, SpO2: stable & adequate BP & HR: stable & adequate Hydration State: stable & adequate Anesthetic Complications: no major complications apparent
--- NOTE | 2017-01-17 10:12 | Pain Management Consultation ---
Pain Consultation Date of Service Jan 17, 2017. Pain Consultation I was unable to see the patient today as he was in endoscopy for an EGD. Please call if there is any concerns about his intrathecal pump today. I will stop by and see him tomorrow morning.
[2017-01-17] MEDS: VENLAFAXINE HCL XR 37.5 MG CAPXR PO SCH (11:27)
[2017-01-17] MEDS: MAGNESIUM CHLORIDE 64MG DELAYED REL TAB PO SCH ×2 (11:28→22:02)
[2017-01-17] MEDS: LEVETIRACETAM 250 MG TAB PO SCH ×2 (11:28→22:01)
[2017-01-17] MEDS: AMLODIPINE BESYLATE 5 MG TAB PO SCH (11:28)
[2017-01-17] MEDS: PANTOprazole INJ 40 MG in SYRINGE 0 ML IV SCH ×2 (11:29→22:02)
[2017-01-17] MEDS: HYDROmorphone HCL 2 MG TAB PO PRN (11:34)
[2017-01-17] MEDS ORDERED: LIDOCAINE HCL 2% 2 ML VIAL (20MG/ML) ONE (12:14)
[2017-01-17] MEDS ORDERED: PROPOFOL IV EMULSION 10 MG/ML 20 ML VIAL IV ONE (12:14)
--- NOTE | 2017-01-17 13:15 | Progress Note ---
Subjective Date of Service: Jan 17, 2017. Subjective Pt evaluation today including: conversation w/ patient, physical exam, chart review, lab review pt doing better, still with pain but controlled. no f/c. eating lunch. abd binder in place. blood cultures negative. tolerating abx. wound culture with MSSA and Acinetobacter. OR culture with MSSA. no abd pain, no n/v/d. All remaining ros reviewed and are negative. Problem List Medical Problems: (1) Acute kidney injury Status: Acute (2) Altered mental status Status: Acute (3) Anemia Status: Acute (4) Chronic pain Status: Acute (5) Dehydration Status: Acute (6) Dehydration Status: Acute (7) Dehydration Status: Acute (8) Dehydration Status: Acute (9) Diabetes mellitus with hyperglycemia Status: Acute (10) Failure of outpatient treatment Status: Acute (11) Hypomagnesemia Status: Acute (12) Hypomagnesemia Status: Acute (13) Intractable vomiting Status: Acute (14) Intractable vomiting Status: Acute (15) Intrathecal pump infection Status: Acute (16) Orthostatic hypotension Status: Acute (17) Vomiting Status: Acute (18) Vomiting Status: Acute Objective Vital Signs Date Time Temp Pulse Resp B/P (MAP) Pulse Ox O2 Delivery O2 Flow Rate FiO2 01/17/17 11:35 36.7 85 16 115/72 (86) 98 Room Air 01/17/17 10:40 73 16 121/72 (88) 96 Room Air 01/17/17 10:18 73 16 123/71 (88) 96 Room Air 01/17/17 10:03 71 16 101/58 (72) 96 Room Air 01/17/17 09:48 18 123/70 (87) 100 Room Air 01/17/17 08:37 36.5 82 20 171/95 (120) 98 Room Air 01/17/17 08:05 36.9 82 19 156/91 98 Room Air 2.0 01/17/17 07:32 Room Air 01/17/17 07:20 36.9 82 19 170/91 (117) 98 Room Air 01/17/17 00:00 Room Air 01/16/17 22:54 36.6 79 16 164/101 (122) 97 Room Air 01/16/17 15:33 36.4 79 18 164/91 (115) 97 Room Air 01/16/17 15:30 Room Air 01/16/17 14:01 81 14 97 Physical Exam General Appearance: WD/WN, no apparent distress Eyes: normal inspection, EOMI Neck: supple Respiratory/Chest: lungs clear, normal breath sounds, no respiratory distress Cardiovascular: regular rate, rhythm, no edema Abdomen: non tender, soft Extremities: non-tender, normal inspection, no pedal edema Neurologic/Psychiatric: alert, oriented x 3 Skin: normal color, warm/dry, no rash Laboratory Results Item Value Date Time Gram Stain - Final Complete 01/14/17 0600 Incision Site Abdomin, Right Lower Quadrant Gram Stain - Final Resulted 01/14/17 1400 Drainage-Deep Back Blood Culture - Preliminary Resulted 01/14/17 0929 Blood NO GROWTH TO DATE. Blood Culture - Preliminary Resulted 01/14/17 0911 Blood NO GROWTH TO DATE. Last 24 Hours Test 01/16/17 18:01 01/16/17 18:37 01/17/17 00:08 01/17/17 06:03 Bedside Glucose 161 mg/dl 146 mg/dl 144 mg/dl 117 mg/dl Test 01/17/17 08:17 White Blood Count 4.57 K/uL Red Blood Count 3.06 M/uL Hemoglobin 8.8 g/dL Hematocrit 25.8 % Mean Corpuscular Volume 84.3 fL Mean Corpuscular Hemoglobin 28.8 pg Mean Corpuscular Hemoglobin Concent 34.1 g/dl Platelet Count 180 K/uL Mean Platelet Volume 8.9 fL Neutrophils (%) (Auto) 57.4 % Lymphocytes (%) (Auto) 21.9 % Monocytes (%) (Auto) 11.6 % Eosinophils (%) (Auto) 8.5 % Basophils (%) (Auto) 0.4 % Neutrophils # (Auto) 2.62 K/uL Lymphocytes # (Auto) 1.00 K/uL Monocytes # (Auto) 0.53 K/uL Eosinophils # (Auto) 0.39 K/uL Basophils # (Auto) 0.02 K/uL RDW Standard Deviation 41.2 fL RDW Coefficient of Variation 13.6 % Immature Granulocyte % (Auto) 0.2 % Immature Granulocyte # (Auto) 0.01 K/uL Red Blood Cell Morphology Unremarkable Sodium Level 137 mmol/L Potassium Level 3.9 mmol/L Chloride Level 101 mmol/L Carbon Dioxide Level 31 mmol/L Anion Gap 5.0 mmol/L Blood Urea Nitrogen 13 mg/dl Creatinine 1.20 mg/dl Est Creatinine Clear Calc Drug Dose 70.4 ml/min Estimated GFR () 80.7 Estimated GFR (Non- 69.6 BUN/Creatinine Ratio 11.1 Random Glucose 139 mg/dl Calcium Level 8.7 mg/dl Magnesium Level 1.7 mg/dl Assessment and Plan (1) Intrathecal pump infection Assessment & Plan: will adjust abx based on culture, will change to cipro 500mg po bid and dapto daily, would give 4 weeks from time of OR - tentative stop date 02/11. Will need picc, blood culture negative will need weekly cbc, cmp, esr, cpk while on abx Can follow with ID post d/c If unable to use dapto due to insurance, vanco would be alternative as pt is pcn allergic.
--- NOTE | 2017-01-17 15:00 | DIAGNOSTIC IMAGING REPORT ---
GI BLEEDING SCAN CLINICAL HISTORY: 51 years-old Male presenting with gi bleed. TECHNIQUE: Following the IV administration of 24.3 mCi of technetium 99m UltraTag labeled red blood cells, nuclear bleeding scan was performed. Anterior flow images were obtained every 2 seconds for a total of 60 seconds. Anterior static images were obtained every 5 minutes for a total of 60 minutes. COMPARISON: CT from 01/14/2017. FINDINGS: On initial flow imaging, normal distribution of radiotracer in the blood pool and early visualization of the liver parenchyma. On subsequent static imaging, persistent radiotracer uptake noted in the left upper quadrant, which could indicate gastric activity in the setting of free pertechnetate from suboptimal labeling or damaged red blood cells with splenic uptake. No convincing evidence of radiotracer in the expected distribution of bowel to suggest active gastrointestinal bleed. IMPRESSION: No evidence of gastrointestinal bleed. Electronically signed by: Ronnell Renee M.D. 01/17/2017 2:59 PM Dictated Date/Time: 01/17/2017 2:53 PM
--- NOTE | 2017-01-17 16:24 | Progress Note ---
Progress Note Date of Service Jan 17, 2017. Progress Note I reviewed the patient's GI bleeding scan. There is no evidence of active bleeding. I suspect his bleeding was related to his esophagitis and would suggest continued use of the proton pump inhibitor twice daily with Carafate 4 times daily. Please call with any questions or concerns we will sign off the patient for the present time.
[2017-01-17] MEDS: DAPTOmycin IV 500 MG in SODIUM CHLORIDE 0.9% 50ML 50 ML IV SCH (17:07)
--- NOTE | 2017-01-17 17:20 | Progress Note ---
Internal Med Progress Note Date of Service: Jan 17, 2017. Provider Documentation: SUBJECTIVE: resting on chair comfortably afebrile pain under control says nausea somewhat better somewhat drowsy OBJECTIVE: Vital Signs-as noted below Exam: General-alert and oriented. drowsy ENT-normal hearing Neck-no neck masses Lungs-cta b/l no wheezing no crackles Heart-s1 and s2 heard regular rhythm, no murmurs Abdomen-soft bowel sounds present non tender no distension Extremities no edema present no erythema musculoskeletal s/p I and D of intrathecal pump site at L3 area-in dressing Neuro-drowsy Lab data as noted below. ASSESSMENT & PLAN: This is a 51-year-old male who presents with leaking from the intrathecal pump. 1. Intrathecal pump leakage, seroma versus abscess at L3 level. s/p I and D by pain management cx growing staph and gm negative bacilli on iv vanco imipenem added by ID await final cx plan for picc line today ID recommends iv daptomycin and po cipro for 4 weeks stable. 2. Chronic pain syndrome from the metastatic lung cancer. We will place him on IV and po Dilaudid p.r.n. pain management on board.doing ok 3. Metastatic lung cancer. The patient is currently no longer on chemo and is going to see Dr. Amanda next week for further plan of care. 4. History of diabetes. Lantus 25units qhs and iss will monitor. 5. History of gastroparesis and on gastric pacemaker. Currently, having nausea and vomiting and CAT scan showed esophagitis. On PPI Consulted GI. s/p egd has reflux oesophagitis. because food in stomach from his gastroparesis bleeding scan was done which was unremarkable Gi recommends ppi bid and Carafate. 6. History of hypertension. Continue amlodipine and Lopressor. We will monitor the blood pressure. 7. History of epilepsy. Continue Keppra. Currently stable. 8. History of neurogenic bladder. We will monitor. 9. Deep venous thrombosis prophylaxis, SCDs for now. DISPOSITION: Monitor in medical floor. pt/ot Expect to discharge home and follow with family doctor. Level 1 full code. Vital Signs: Date Time Temp Pulse Resp B/P (MAP) Pulse Ox O2 Delivery O2 Flow Rate FiO2 01/17/17 16:40 165/106 (125) 01/17/17 15:22 36.9 89 18 181/109 (133) 100 Room Air 9/14/17 11:35 36.7 85 16 115/72 (86) 98 Room Air 01/17/17 10:40 73 16 121/72 (88) 96 Room Air 01/17/17 10:18 73 16 123/71 (88) 96 Room Air 01/17/17 10:03 71 16 101/58 (72) 96 Room Air 01/17/17 09:48 18 123/70 (87) 100 Room Air 01/17/17 08:37 36.5 82 20 171/95 (120) 98 Room Air 01/17/17 08:05 36.9 82 19 156/91 98 Room Air 2.0 01/17/17 07:32 Room Air 01/17/17 07:20 36.9 82 19 170/91 (117) 98 Room Air 01/17/17 00:00 Room Air 01/16/17 22:54 36.6 79 16 164/101 (122) 97 Room Air Lab Results: Results Past 24 Hours Test 01/16/17 18:01 01/16/17 18:37 01/17/17 00:08 01/17/17 06:03 Range/Units Bedside Glucose 161 146 144 117 70-99 mg/dl Test 01/17/17 08:17 Range/Units White Blood Count 4.57 4.8-10.8 K/uL Red Blood Count 3.06 4.7-6.1 M/uL Hemoglobin 8.8 14.0-18.0 g/dL Hematocrit 25.8 42-52 % Mean Corpuscular Volume 84.3 80-100 fL Mean Corpuscular Hemoglobin 28.8 25-34 pg Mean Corpuscular Hemoglobin Concent 34.1 32-36 g/dl Platelet Count 180 130-400 K/uL Mean Platelet Volume 8.9 7.4-10.4 fL Neutrophils (%) (Auto) 57.4 % Lymphocytes (%) (Auto) 21.9 % Monocytes (%) (Auto) 11.6 % Eosinophils (%) (Auto) 8.5 % Basophils (%) (Auto) 0.4 % Neutrophils # (Auto) 2.62 1.4-6.5 K/uL Lymphocytes # (Auto) 1.00 1.2-3.4 K/uL Monocytes # (Auto) 0.53 0.11-0.59 K/uL Eosinophils # (Auto) 0.39 0-0.5 K/uL Basophils # (Auto) 0.02 0-0.2 K/uL RDW Standard Deviation 41.2 36.4-46.3 fL RDW Coefficient of Variation 13.6 11.5-14.5 % Immature Granulocyte % (Auto) 0.2 % Immature Granulocyte # (Auto) 0.01 0.00-0.02 K/uL Red Blood Cell Morphology Unremarkable Sodium Level 137 136-145 mmol/L Potassium Level 3.9 3.5-5.1 mmol/L Chloride Level 101 98-107 mmol/L Carbon Dioxide Level 31 21-32 mmol/L Anion Gap 5.0 3-11 mmol/L Blood Urea Nitrogen 13 7-18 mg/dl Creatinine 1.20 0.60-1.40 mg/dl Est Creatinine Clear Calc Drug Dose 70.4 ml/min Estimated GFR () 80.7 Estimated GFR (Non- 69.6 BUN/Creatinine Ratio 11.1 10-20 Random Glucose 139 70-99 mg/dl Calcium Level 8.7 8.5-10.1 mg/dl Magnesium Level 1.7 1.8-2.4 mg/dl
--- NOTE | 2017-01-17 17:25 | Progress Note ---
Internal Med Progress Note Date of Service: Jan 17, 2017. Provider Documentation: SUBJECTIVE: complains of back pain afebrile has nausea eating ok no sob OBJECTIVE: Vital Signs-as noted below Exam: General-alert and oriented. not in distress ENT-normal hearing Neck-no neck masses Lungs-cta b/l no wheezing no crackles Heart-s1 and s2 heard regular rhythm, no murmurs Abdomen-soft bowel sounds present non tender no distension Extremities no edema present no erythema musculoskeletal s/p I and D of intrathecal pump site at L3 area-in dressing Neuro-alert and oriented moves extremities Lab data as noted below. ASSESSMENT & PLAN: This is a 51-year-old male who presents with leaking from the intrathecal pump. 1. Intrathecal pump leakage, seroma versus abscess at L3 level. s/p I and D by pain management cx growing staph and gm negative bacilli on iv vanco imipenem added by ID await final cx plan for picc line stable. 2. Chronic pain syndrome from the metastatic lung cancer. We will place him on IV and po Dilaudid p.r.n. pain management on board.doing ok 3. Metastatic lung cancer. The patient is currently no longer on chemo and is going to see Dr. Amanda next week for further plan of care. 4. History of diabetes. Lantus 25units qhs and iss will monitor. 5. History of gastroparesis and on gastric pacemaker. Currently, having nausea and vomiting and CAT scan showed esophagitis. On PPI Consulted GI. plan for egd in am 6. History of hypertension. Continue amlodipine and Lopressor. We will monitor the blood pressure. 7. History of epilepsy. Continue Keppra. Currently stable. 8. History of neurogenic bladder. We will monitor. 9. Deep venous thrombosis prophylaxis, SCDs for now. DISPOSITION: Monitor in medical floor. Expect to discharge home and follow with family doctor. Level 1 full code. Vital Signs: Date Time Temp Pulse Resp B/P (MAP) Pulse Ox O2 Delivery O2 Flow Rate FiO2 01/17/17 16:40 165/106 (125) 01/17/17 15:22 36.9 89 18 181/109 (133) 100 Room Air 01/17/17 11:35 36.7 85 16 115/72 (86) 98 Room Air 01/17/17 10:40 73 16 121/72 (88) 96 Room Air 01/17/17 10:18 73 16 123/71 (88) 96 Room Air 01/17/17 10:03 71 16 101/58 (72) 96 Room Air 01/17/17 09:48 18 123/70 (87) 100 Room Air 01/17/17 08:37 36.5 82 20 171/95 (120) 98 Room Air 01/17/17 08:05 36.9 82 19 156/91 98 Room Air 2.0 01/17/17 07:32 Room Air 01/17/17 07:20 36.9 82 19 170/91 (117) 98 Room Air 01/17/17 00:00 Room Air 01/16/17 22:54 36.6 79 16 164/101 (122) 97 Room Air Lab Results: Results Past 24 Hours Test 01/16/17 18:01 01/16/17 18:37 01/17/17 00:08 01/17/17 06:03 Range/Units Bedside Glucose 161 146 144 117 70-99 mg/dl Test 01/17/17 08:17 Range/Units White Blood Count 4.57 4.8-10.8 K/uL Red Blood Count 3.06 4.7-6.1 M/uL Hemoglobin 8.8 14.0-18.0 g/dL Hematocrit 25.8 42-52 % Mean Corpuscular Volume 84.3 80-100 fL Mean Corpuscular Hemoglobin 28.8 25-34 pg Mean Corpuscular Hemoglobin Concent 34.1 32-36 g/dl Platelet Count 180 130-400 K/uL Mean Platelet Volume 8.9 7.4-10.4 fL Neutrophils (%) (Auto) 57.4 % Lymphocytes (%) (Auto) 21.9 % Monocytes (%) (Auto) 11.6 % Eosinophils (%) (Auto) 8.5 % Basophils (%) (Auto) 0.4 % Neutrophils # (Auto) 2.62 1.4-6.5 K/uL Lymphocytes # (Auto) 1.00 1.2-3.4 K/uL Monocytes # (Auto) 0.53 0.11-0.59 K/uL Eosinophils # (Auto) 0.39 0-0.5 K/uL Basophils # (Auto) 0.02 0-0.2 K/uL RDW Standard Deviation 41.2 36.4-46.3 fL RDW Coefficient of Variation 13.6 11.5-14.5 % Immature Granulocyte % (Auto) 0.2 % Immature Granulocyte # (Auto) 0.01 0.00-0.02 K/uL Red Blood Cell Morphology Unremarkable Sodium Level 137 136-145 mmol/L Potassium Level 3.9 3.5-5.1 mmol/L Chloride Level 101 98-107 mmol/L Carbon Dioxide Level 31 21-32 mmol/L Anion Gap 5.0 3-11 mmol/L Blood Urea Nitrogen 13 7-18 mg/dl Creatinine 1.20 0.60-1.40 mg/dl Est Creatinine Clear Calc Drug Dose 70.4 ml/min Estimated GFR () 80.7 Estimated GFR (Non- 69.6 BUN/Creatinine Ratio 11.1 10-20 Random Glucose 139 70-99 mg/dl Calcium Level 8.7 8.5-10.1 mg/dl Magnesium Level 1.7 1.8-2.4 mg/dl
[2017-01-17] MEDS: HydrALAZINE HCL 20 MG/ML VIAL IV. PRN (19:10)
[2017-01-17] MEDS: CIPROFLOXACIN 500 MG TAB PO SCH (22:01)
[2017-01-18] VITALS (7 sets, daily range): BP systolic 159–189; BP diastolic 56–106; PULSE 82–97; TEMP 36.6–36.8; O2SAT 92–98
[2017-01-18] MEDS: LORAZEPAM 1 MG TAB PO PRN ×2 (00:05→21:39)
[2017-01-18] MEDS: ONDANSETRON INJ 2 MG/ML 2 ML VIAL IV PRN ×4 (02:18→23:39)
[2017-01-18] MEDS: HYDROmorphone INJ 1 MG/ML SYR IV PRN ×6 (02:19→23:39)
[2017-01-18] MEDS ORDERED: NURSING DECISION MEDICATION ORDER SCH (02:45)
[2017-01-18] MEDS ORDERED: SODIUM CHLORIDE 0.65% NA SOLN 45 ML (OCEAN) PRN (06:30)
[2017-01-18] MEDS: HydrALAZINE HCL 20 MG/ML VIAL IV. PRN (07:21)
[2017-01-18] MEDS: PANTOprazole INJ 40 MG in SYRINGE 0 ML IV SCH (08:49)
[2017-01-18] MEDS: SUCRALFATE 1 GM/10 ML UDC PO SCH ×4 (08:49→21:40)
[2017-01-18] MEDS: CIPROFLOXACIN 500 MG TAB PO SCH ×2 (08:50→21:42)
[2017-01-18] MEDS: VENLAFAXINE HCL XR 37.5 MG CAPXR PO SCH (08:50)
[2017-01-18] MEDS: LEVETIRACETAM 250 MG TAB PO SCH ×2 (08:52→21:41)
[2017-01-18] MEDS: METOPROLOL TARTRATE 25 MG TAB PO SCH ×2 (08:56→21:40)
[2017-01-18] MEDS: MULTIVITAMIN TAB PO SCH (08:56)
[2017-01-18] MEDS: GABAPENTIN 600 MG TAB PO SCH ×3 (08:56→21:40)
[2017-01-18] MEDS: MAGNESIUM CHLORIDE 64MG DELAYED REL TAB PO SCH ×2 (08:57→21:41)
[2017-01-18] MEDS: AMLODIPINE BESYLATE 5 MG TAB PO SCH (08:57)
[2017-01-18] MEDS: INSULIN ASPART 100 UNITS/ML 3 ML PEN SC SCH ×4 (09:03→21:42)
--- NOTE | 2017-01-18 09:28 | Pain Management Progress Note ---
Pain Management Progress Note Date of Service Jan 18, 2017. Gabriele Aguilar reports to me today that he had significant forceful vomiting last evening after which he felt that he had some drainage from his pump pocket incision. He states that since that time he hasn't noted any additional drainage and feels that his abdomen is nondistended at this time. He reports adequate pain control around 7 out of 10 and feels that his pain control with intrathecal pump is superior to that of prior to his pump with transdermal and oral narcotics. Other than vomiting he denies any other overnight complaints. He denies any change in bowel or bladder continence, motor weakness, foot drop, falls Objective Vital Signs: Last Vital Signs Documentation Date Time Temp Pulse Resp B/P (MAP) Pulse Ox O2 Delivery O2 Flow Rate FiO2 01/18/17 07:09 36.6 82 19 189/106 (133) 92 Room Air 01/17/17 08:05 2.0 Physical Exam: He is awake and alert and oriented to times place and person. He demonstrates normal and clear sensorium. He is moving about his room preparing his breakfast. He does not appear to be any significant pain. Inspection of his back incision demonstrates mild amount of serous drainage on the bandage. Palpation around the incision site does not produce any further drainage. Prineo dressing is intact. There is a mild amount of tenderness tenderness surrounding his surgical site. He has a minimal amount of drainage on his abdominal binder but I am unable to express any drainage from his pump pocket incision at this time. He is spontaneous movement of his lower extremities and intact sensation in the lower extremities. Laboratory Laboratory Findings 01/17/17 08:17 Red Blood Count 3.06 L, Mean Corpuscular Volume 84.3, Mean Corpuscular Hemoglobin 28.8, Mean Corpuscular Hemoglobin Concent 34.1, Mean Platelet Volume 8.9, Neutrophils (%) (Auto) 57.4, Lymphocytes (%) (Auto) 21.9, Monocytes (%) ( Auto) 11.6, Eosinophils (%) (Auto) 8.5, Basophils (%) (Auto) 0.4, Neutrophils # (Auto) 2.62, Lymphocytes # (Auto) 1.00 L, Monocytes # (Auto) 0.53, Eosinophils # (Auto) 0.39, Basophils # (Auto) 0.02 Assessment 1. CSF leak post catheter insertion. 2. Neuropathic pain. 3. Opioid dependance. Recommendations 1. Continue monitoring wound for fluid drainage and infection. I did placed some Steri-Strips on his front pocket incision to support this healing incision while he is vomiting. 2. Continue oral narcotics post I&D of the catheter site for surgical nociceptive pain reduction 3. I did not make any changes to his intrathecal pump dose today. 4. I appreciate the hospitalist and infectious disease recommendations and helping care for this patient 5. Will see him back next or Saturday in our office for further evaluation and care. From a pain management perspective he is acceptable for discharge at this time
[2017-01-18] MEDS ORDERED: VANCOMYCIN TROUGH SCH (11:30)
[2017-01-18] MEDS: METOCLOPRAMIDE HCL 10 MG TAB PO PRN ×2 (12:26→19:23)
[2017-01-18] MEDS: DAPTOmycin IV 500 MG in SODIUM CHLORIDE 0.9% 50ML 50 ML IV SCH (14:11)
--- NOTE | 2017-01-18 16:44 | Progress Note ---
Internal Med Progress Note Date of Service: Jan 18, 2017. Provider Documentation: SUBJECTIVE: complains of wobbly on ambulating has chronic pain has nausea no sob afebrile no one at home today and want to wait until tomorrow for discharge also wants more therapy OBJECTIVE: Vital Signs-as noted below Exam: General-alert and oriented. not in distress ENT-normal hearing Neck-no neck masses Lungs-cta b/l no wheezing no crackles Heart-s1 and s2 heard regular rhythm, no murmurs Abdomen-soft bowel sounds present non tender no distension Extremities no edema present no erythema musculoskeletal s/p I and D of intrathecal pump site at L3 area-in dressing Neuro-alert and oriented moves extremities Lab data as noted below. ASSESSMENT & PLAN: This is a 51-year-old male who presents with leaking from the intrathecal pump. 1. Intrathecal pump leakage, seroma versus abscess at L3 level. s/p I and D by pain management cx growing MSSA and Acinetobacter on iv vanco imipenem added by ID s/p picc line plan for iv daptomycin for 4 weeks and oral cipro stable. 2. Chronic pain syndrome from the metastatic lung cancer. We will place him on IV and po Dilaudid p.r.n. pain management on board.doing ok 3. Ambulatory dysfunction: pt/ot 3. Metastatic lung cancer. The patient is currently no longer on chemo and is going to see Dr. Amanda next week for further plan of care. 4. History of diabetes. Lantus 25units qhs and iss will monitor. 5. History of gastroparesis and on gastric pacemaker. Currently, having nausea and vomiting and CAT scan showed esophagitis. On PPI Consulted GI. plan for egd in am 6. History of hypertension. Continue amlodipine and Lopressor. We will monitor the blood pressure. 7. History of epilepsy. Continue Keppra. Currently stable. 8. History of neurogenic bladder. We will monitor. 9. Deep venous thrombosis prophylaxis, SCDs for now. DISPOSITION: Monitor in medical floor. pt/ot social service for d/c planning Vital Signs: Date Time Temp Pulse Resp B/P (MAP) Pulse Ox O2 Delivery O2 Flow Rate FiO2 01/18/17 16:11 36.6 90 16 159/89 (112) 98 Room Air 01/18/17 12:00 159/95 (116) 01/18/17 09:50 162/102 (122) 01/18/17 08:10 162/96 (118) 01/18/17 08:10 Room Air 01/18/17 07:09 36.6 82 19 189/106 (133) 92 Room Air 01/18/17 00:00 Room Air 01/17/17 23:25 36.4 90 16 169/99 (122) 94 Room Air 01/17/17 20:30 122/86 (98) 01/17/17 20:00 94 146/87 (106) 01/17/17 18:37 178/106 (130) Lab Results: Results Past 24 Hours Test 01/17/17 17:08 01/17/17 20:54 01/18/17 08:14 01/18/17 12:08 Range/Units Bedside Glucose 225 168 245 258 70-99 mg/dl Stool Occult Blood NEGATIVE NEGATIVE
[2017-01-18] MEDS: INSULIN GLARGINE SOLOSTAR 100 UNITS/ML 3 ML PEN SC SCH (21:45)
[2017-01-18] MEDS: PANTOprazole SOD 40 MG TAB PO SCH (21:48)
[2017-01-19] VITALS (9 sets, daily range): BP systolic 89–153; BP diastolic 55–84; PULSE 94–125; TEMP 37.2–37.7; O2SAT 82–97
[2017-01-19] MEDS: HYDROmorphone INJ 1 MG/ML SYR IV PRN ×5 (02:41→20:13)
[2017-01-19] MEDS: LORAZEPAM 1 MG TAB PO PRN (07:36)
[2017-01-19] MEDS: ACETAMINOPHEN 325 MG TAB PO PRN (08:26)
[2017-01-19] MEDS: SUCRALFATE 1 GM/10 ML UDC PO SCH ×4 (08:58→21:26)
[2017-01-19] MEDS: CIPROFLOXACIN 500 MG TAB PO SCH (08:59)
[2017-01-19] MEDS: VENLAFAXINE HCL XR 37.5 MG CAPXR PO SCH (09:00)
[2017-01-19] MEDS: LEVETIRACETAM 250 MG TAB PO SCH ×2 (09:01→21:27)
[2017-01-19] MEDS: MULTIVITAMIN TAB PO SCH (09:02)
[2017-01-19] MEDS: GABAPENTIN 600 MG TAB PO SCH ×3 (09:02→21:27)
[2017-01-19] MEDS: METOPROLOL TARTRATE 25 MG TAB PO SCH ×2 (09:02→21:27)
[2017-01-19] MEDS: MAGNESIUM CHLORIDE 64MG DELAYED REL TAB PO SCH ×2 (09:03→21:27)
[2017-01-19] MEDS: AMLODIPINE BESYLATE 5 MG TAB PO SCH (09:03)
[2017-01-19] MEDS: PANTOprazole SOD 40 MG TAB PO SCH ×2 (09:03→21:27)
[2017-01-19 09:13] LABS: BASO % 0.2 %; BASO ABS # 0.01 K/uL (0-0.2); EOS % 1.9 %; HEMATOCRIT 25.7 % (42-52); IG% 0.4 %; LYMPH ABS # 0.26 K/uL (1.2-3.4); MEAN CELL VOLUME 85.7 fL (80-100); MEAN CORPUSCULAR HGB CONC 33.9 g/dl (32-36); MEAN PLATELET VOLUME 9.4 fL (7.4-10.4); MONO % 6.5 %; PLATELET COUNT 205 K/uL (130-400); WHITE BLOOD COUNT 5.21 K/uL (4.8-10.8)
[2017-01-19] MEDS: INSULIN ASPART 100 UNITS/ML 3 ML PEN SC SCH ×3 (09:40→19:20)
[2017-01-19 09:41] LABS: CALCIUM 8.1 mg/dl (8.5-10.1); CREATININE 1.5 mg/dl (0.60-1.40); MAGNESIUM 1.1 mg/dl (1.8-2.4); POTASSIUM 4.2 mmol/L (3.5-5.1)
[2017-01-19 10:35] LABS: COMPLETE YES
[2017-01-19] MEDS: METOCLOPRAMIDE HCL 10 MG TAB PO PRN (11:58)
[2017-01-19] MEDS: DAPTOmycin IV 500 MG in SODIUM CHLORIDE 0.9% 50ML 50 ML IV SCH (14:08)
[2017-01-19] MEDS ORDERED: SODIUM CHLORIDE 0.9% 500ML 500 ML IV SCH (14:30)
[2017-01-19] MEDS ORDERED: CEFEPIME CONSULT ACTIVE PRN ×2 (14:30)
[2017-01-19] MEDS ORDERED: LEVOFLOXACIN CONSULT ACTIVE PRN (14:45)
--- NOTE | 2017-01-19 14:53 | DIAGNOSTIC IMAGING REPORT ---
CHEST ONE VIEW PORTABLE CLINICAL HISTORY: cough COMPARISON STUDY: 10/14/2016 FINDINGS: There is a right-sided PICC catheter, the tip of which projects over the superior vena cava. The heart is normal in size. There are dense consolidative changes within the left mid and lower lung zone, consistent with a pneumonia. Clinical and radiographic follow-up is recommended.[ IMPRESSION: Dense airspace opacities within the left mid and lower lung zone, consistent with a pneumonia. Clinical and radiographic follow-up is recommended Electronically signed by: Bruce Salamanca M.D. 01/19/2017 2:52 PM Dictated Date/Time: 01/19/2017 2:50 PM
[2017-01-19] MEDS: LEVOFLOXACIN 750 MG TAB PO SCH (16:21)
[2017-01-19] MEDS: CEFEPIME IV 2,000 MG in DEXTROSE 5% 100ML 100 ML IV SCH (16:41)
[2017-01-19] MEDS: SODIUM CHLORIDE 0.9% 1000ML 1,000 ML IV SCH ×2 (16:41→22:31)
--- NOTE | 2017-01-19 16:56 | Progress Note ---
Internal Med Progress Note Date of Service: Jan 19, 2017. Provider Documentation: SUBJECTIVE: not feeling well pain all over has cough with sputum dizzy while standing had mild temp spike persistent nausea drain from back at recent procedure site OBJECTIVE: Vital Signs-as noted below Exam: General-alert and oriented. not in distress ENT-normal hearing Neck-no neck masses Lungs-cta b/l no wheezing no crackles Heart-s1 and s2 heard regular rhythm, no murmurs Abdomen-soft bowel sounds present non tender no distension Extremities no edema present no erythema musculoskeletal s/p I and D of intrathecal pump site at L3 area-in dressing- draining? Neuro-alert and oriented moves extremities Lab data as noted below. ASSESSMENT & PLAN: This is a 51-year-old male who presents with leaking from the intrathecal pump. 1. Intrathecal pump leakage, seroma versus abscess at L3 level. s/p I and D by pain management cx growing MSSA and Acinetobacter s/p picc line plan for iv daptomycin for 4 weeks and oral cipro cipro held and started on iv cefepime and Levaquin for pneumonia and possible uti questionable leak from procedure site- will notify pain management will also hold daptomycin and start on v vanco as dapto as no lung penetration. Sepsis 01/19/17 temp, tachycardia, low BP, cxr pneumonia repeat blood cx and urine cx started on iv cepemine and po Levaquin iv fluids will monitor 3. Chronic pain syndrome from the metastatic lung cancer. We will place him on IV and po Dilaudid p.r.n. pain management on board.doing ok 4. Ambulatory dysfunction: pt/ot 5. Metastatic lung cancer. The patient is currently no longer on chemo and is going to see Dr. Amanda next week for further plan of care.consulted 6. History of diabetes. Lantus 25units qhs and iss will monitor. 7. History of gastroparesis and on gastric pacemaker. Currently, having nausea and vomiting and CAT scan showed esophagitis. On PPI Consulted GI. s/p egd has reflux oesophagitis. because food in stomach from his gastroparesis bleeding scan was done which was unremarkable Gi recommends ppi bid and Carafate. 8. History of hypertension. Continue amlodipine and Lopressor. We will monitor the blood pressure. 9. History of epilepsy. Continue Keppra. Currently stable. 9. History of neurogenic bladder. We will monitor. 10. Deep venous thrombosis prophylaxis, SCDs for now. DISPOSITION: Monitor in medical floor. pt/ot social service for d/c planning Vital Signs: Date Time Temp Pulse Resp B/P (MAP) Pulse Ox O2 Delivery O2 Flow Rate FiO2 01/19/17 15:09 37.4 94 16 115/75 (88) 96 Room Air 01/19/17 11:52 37.2 99 24 90/55 (67) 94 Room Air 01/19/17 09:45 37.6 111 16 89/56 (67) 92 Nasal Cannula 2.0 01/19/17 07:40 91 Room Air 01/19/17 07:15 37.7 125 20 125/73 (90) 91 Room Air 01/18/17 23:40 Room Air 01/18/17 23:25 36.8 97 18 161/56 (91) 95 Room Air Lab Results: Results Past 24 Hours Test 01/18/17 20:03 01/19/17 08:06 01/19/17 08:46 01/19/17 11:49 Range/Units Bedside Glucose 154 177 214 70-99 mg/dl White Blood Count 5.21 4.8-10.8 K/uL Red Blood Count 3.00 4.7-6.1 M/uL Hemoglobin 8.7 14.0-18.0 g/dL Hematocrit 25.7 42-52 % Mean Corpuscular Volume 85.7 80-100 fL Mean Corpuscular Hemoglobin 29.0 25-34 pg Mean Corpuscular Hemoglobin Concent 33.9 32-36 g/dl Platelet Count 205 130-400 K/uL Mean Platelet Volume 9.4 7.4-10.4 fL Neutrophils (%) (Auto) 86.0 % Lymphocytes (%) (Auto) 5.0 % Monocytes (%) (Auto) 6.5 % Eosinophils (%) (Auto) 1.9 % Basophils (%) (Auto) 0.2 % Neutrophils # (Auto) 4.48 1.4-6.5 K/uL Lymphocytes # (Auto) 0.26 1.2-3.4 K/uL Monocytes # (Auto) 0.34 0.11-0.59 K/uL Eosinophils # (Auto) 0.10 0-0.5 K/uL Basophils # (Auto) 0.01 0-0.2 K/uL RDW Standard Deviation 42.4 36.4-46.3 fL RDW Coefficient of Variation 13.6 11.5-14.5 % Immature Granulocyte % (Auto) 0.4 % Immature Granulocyte # (Auto) 0.02 0.00-0.02 K/uL Red Blood Cell Morphology Unremarkable Sodium Level 136 136-145 mmol/L Potassium Level 4.2 3.5-5.1 mmol/L Chloride Level 99 98-107 mmol/L Carbon Dioxide Level 30 21-32 mmol/L Anion Gap 7.0 3-11 mmol/L Blood Urea Nitrogen 21 7-18 mg/dl Creatinine 1.50 0.60-1.40 mg/dl Est Creatinine Clear Calc Drug Dose 56.4 ml/min Estimated GFR () 61.6 Estimated GFR (Non- 53.1 BUN/Creatinine Ratio 14.0 10-20 Random Glucose 172 70-99 mg/dl Calcium Level 8.1 8.5-10.1 mg/dl Magnesium Level 1.1 1.8-2.4 mg/dl Test 01/19/17 14:36 01/19/17 15:18 01/19/17 17:06 Range/Units Troponin I 0.017 0-0.045 ng/ml Bedside Glucose 252 251 70-99 mg/dl Microbiology Results 01/19/17 Blood Culture, Received Pending 01/19/17 Blood Culture, Received Pending 01/19/17 MRSA DNA Surveillance Screen - Final, Complete Specimen Negative for MRSA by DNA Probe
[2017-01-19] MEDS ORDERED: VANCOMYCIN CONSULT ACTIVE PRN (17:15)
[2017-01-19] MEDS ORDERED: VANCOMYCIN INJ 2,000 MG in SODIUM CHLORIDE 0.9% 500ML 500 ML IV ONE (17:30)
[2017-01-19] MEDS: MAGNESIUM SULFATE 1GM / D5W 1 GM in PREMIXED IN D5W 100 ML IV SCH ×2 (17:35→19:12)
--- NOTE | 2017-01-19 19:41 | Pharmacy Progress Note ---
Pharmacy Abx Initial Consult Date of Service Jan 19, 2017. Pharmacy Dosing Scope Date of Consult: 01/19/17 Consultation requested by: Dr. Saenz Pharmacy is consulted to initiate vancomycin IV dosing therapy, order appropriate labs and adjust drug dose/frequency. Subjective The patient is a 51 year old male admitted on Jan 14, 2017 at 09:22. Objective Height (Feet): 5 Height (Inches): 8.00 Weight (Kilograms): 78.200 Vital Signs (Past 12Hrs) Vital Signs Past 12 Hours Date Time Temp Pulse Resp B/P (MAP) Pulse Ox O2 Delivery O2 Flow Rate FiO2 01/19/17 15:09 37.4 94 16 115/75 (88) 96 Room Air 01/19/17 11:52 37.2 99 24 90/55 (67) 94 Room Air 01/19/17 09:45 37.6 111 16 89/56 (67) 92 Nasal Cannula 2.0 01/19/17 07:40 91 Room Air Lab Results (24Hrs) Laboratory Tests (24 Hours) Test 01/19/17 08:46 White Blood Count 5.21 K/uL (4.8-10.8) Red Blood Count 3.00 M/uL (4.7-6.1) L Hemoglobin 8.7 g/dL (14.0-18.0) L Hematocrit 25.7 % (42-52) L Mean Corpuscular Volume 85.7 fL (80-100) Mean Corpuscular Hemoglobin 29.0 pg (25-34) Mean Corpuscular Hemoglobin Concent 33.9 g/dl (32-36) Platelet Count 205 K/uL (130-400) Mean Platelet Volume 9.4 fL (7.4-10.4) Neutrophils (%) (Auto) 86.0 % Lymphocytes (%) (Auto) 5.0 % Monocytes (%) (Auto) 6.5 % Eosinophils (%) (Auto) 1.9 % Basophils (%) (Auto) 0.2 % Neutrophils # (Auto) 4.48 K/uL (1.4-6.5) Lymphocytes # (Auto) 0.26 K/uL (1.2-3.4) L Monocytes # (Auto) 0.34 K/uL (0.11-0.59) Eosinophils # (Auto) 0.10 K/uL (0-0.5) Basophils # (Auto) 0.01 K/uL (0-0.2) Micro Results Date/Time Source Procedure Growth Status 01/19/17 14:44 Blood Blood Culture Pending Received 01/19/17 14:36 Blood Blood Culture Pending Received 01/14/17 09:29 Blood Blood Culture - Preliminary NO GROWTH TO DATE. Resulted 01/14/17 09:11 Blood Blood Culture - Preliminary NO GROWTH TO DATE. Resulted 01/19/17 16:45 Nasal MRSA DNA Surveillance Screen - Final Specimen Negative for MRSA by DNA Probe Complete 01/14/17 14:00 Drainage-Deep Back Gram Stain - Final Complete 01/14/17 14:00 Bacterial Culture - Final Staphylococcus Aureus Complete 01/14/17 06:00 Incision Site Abdomin, Right Lower Quadrant Gram Stain - Final Complete 01/14/17 06:00 Wound Culture - Final Acinetobacter Baumannii/Haemol Staphylococcus Aureus Complete Risk Factors for Resistance * Current hospitalization > 5 days * Antimicrobial use within the last 90 days (numerous- vancomycin, Zosyn, cefepime) Assessment & Plan Assessment 51 year old male admitted earlier this month for an infection surround intrathecal pump. Currently, the patient has suffered from dizziness and temperatuer spike. Concern for pneumonia. Plan vancomycin for treatment of pneumonia Vancomycin IV * Loading dose: 2000 mg (25 mg/kg) * Maintenance dose: 1000 mg IV (12.8 mg/kg) every 14 hours (previous data from this admission suggests that patient tolerates q14 hour dosing. Utilized lower mg/kg dose as patient appears to accumulate easily. Also, kidney appears to have a small spike in creatinine...unsure of which direction creatinine will trend). * Goal trough level for pneumonia : 15 to 20 mcg/mL * Trough level ordered for 01/22/17 prior to noon dose Pharmacy will continue to follow and will adjust dose/frequency as necessary. Thank you.
[2017-01-19] MEDS: ONDANSETRON INJ 2 MG/ML 2 ML VIAL IV PRN (20:13)
[2017-01-19] MEDS ORDERED: INSULIN ASPART 100 UNITS/ML 3 ML PEN SC ONE (21:15)
[2017-01-19] MEDS ORDERED: INSULIN GLARGINE SOLOSTAR 100 UNITS/ML 3 ML PEN SC ONE (21:15)
[2017-01-19 22:45] LABS: CALCIUM 8.2 mg/dl (8.5-10.1); MAGNESIUM 1.9 mg/dl (1.8-2.4); POTASSIUM 4.4 mmol/L (3.5-5.1)
[2017-01-20] MEDS: SODIUM CHLORIDE 0.9% 1000ML 1,000 ML IV SCH ×3 (00:15→13:08)
[2017-01-20] MEDS: ONDANSETRON INJ 2 MG/ML 2 ML VIAL IV PRN ×4 (03:30→23:43)
[2017-01-20] MEDS: HYDROmorphone INJ 1 MG/ML SYR IV PRN ×6 (03:30→21:33)
[2017-01-20 05:55] LABS: BUN/CREATININE RATIO 16.2 (10-20); CALCIUM 7.7 mg/dl (8.5-10.1); CREATININE 1.7 mg/dl (0.60-1.40); POTASSIUM 4.1 mmol/L (3.5-5.1)
[2017-01-20 06:06] LABS: ESTIMATED AVERAGE GLUCOSE 160 mg/dl; HA1C FLAG Normal (Normal)
[2017-01-20 06:50] VITALS: BP 137/75; PULSE 92; TEMP 37.1; O2SAT 93
--- NOTE | 2017-01-20 08:11 | Pain Management Progress Note ---
Pain Management Progress Note Date of Service Jan 20, 2017. Subjective Jeff reports to me today that he had increased drainage over his lumbar wound compared to previous over the last 24 hours. He states that he hasn't noted any additional drainage from his front pocket incision. He reports adequate pain control around 7 out of 10 and feels that his pain control with intrathecal pump is superior to that of prior to his pump with transdermal and oral narcotics. He utilized 5 doses of IV hydromorphone over the last 24 hours. He denies any other overnight complaints. He denies any change in bowel or bladder continence, motor weakness, foot drop, falls Objective Vital Signs: Last Vital Signs Documentation Date Time Temp Pulse Resp B/P (MAP) Pulse Ox O2 Delivery O2 Flow Rate FiO2 01/20/17 06:50 37.1 92 22 137/75 (95) 93 Nasal Cannula 2.0 Physical Exam: He is awake and alert and oriented to times place and person. He demonstrates normal and clear sensorium. He is moving about his room preparing his breakfast. He does not appear to be any significant pain. Inspection of his back incision demonstrates moderate amount of serous drainage on the bandage. There is a mild amount of tenderness tenderness surrounding his surgical site. His front intrathecal pump pocket incision appears to be well healing at this time. He is spontaneous movement of his lower extremities and intact sensation in the lower extremities. Laboratory Laboratory Review: results personally reviewed by me Laboratory Findings 01/19/17 08:46 Red Blood Count 3.00 L, Mean Corpuscular Volume 85.7, Mean Corpuscular Hemoglobin 29.0, Mean Corpuscular Hemoglobin Concent 33.9, Mean Platelet Volume 9.4, Neutrophils (%) (Auto) 86.0, Lymphocytes (%) (Auto) 5.0, Monocytes (%) ( Auto) 6.5, Eosinophils (%) (Auto) 1.9, Basophils (%) (Auto) 0.2, Neutrophils # ( Auto) 4.48, Lymphocytes # (Auto) 0.26 L, Monocytes # (Auto) 0.34, Eosinophils # (Auto) 0.10, Basophils # (Auto) 0.01 Assessment 1. CSF leak post catheter insertion. 2. Neuropathic pain. 3. Opioid dependance. Recommendations 1. Continue monitoring wound for fluid drainage and infection. The front pocket incision appears to be well-healing. Steri-Strips were still intact. His lumbar drainage does appear to have increased since I changed his dressing on 01/18/2017. I recommend we continue to monitor for another 24 hours and should he continue to have the same amount of drainage or increased drainage would plan for return trip to the OR to further assess his previous CSF leak. I will make him nothing by mouth after midnight in the event that we should need to return to the OR. 2. Continue oral narcotics post I&D of the catheter site for surgical nociceptive pain reduction 3. I did not make any changes to his intrathecal pump dose today. 4. I appreciate the hospitalist and infectious disease recommendations and helping care for this patient 5. We will follow-up with him tomorrow morning.
[2017-01-20] MEDS: METOCLOPRAMIDE HCL 10 MG TAB PO PRN ×2 (08:25→21:42)
[2017-01-20] MEDS: SUCRALFATE 1 GM/10 ML UDC PO SCH ×4 (08:26→21:23)
[2017-01-20] MEDS: GABAPENTIN 600 MG TAB PO SCH ×3 (08:27→21:24)
[2017-01-20] MEDS: MULTIVITAMIN TAB PO SCH (08:27)
[2017-01-20] MEDS: METOPROLOL TARTRATE 25 MG TAB PO SCH ×2 (08:28→21:23)
[2017-01-20] MEDS: PANTOprazole SOD 40 MG TAB PO SCH ×2 (08:28→21:23)
[2017-01-20] MEDS: AMLODIPINE BESYLATE 5 MG TAB PO SCH (08:28)
[2017-01-20] MEDS: LEVOFLOXACIN 750 MG TAB PO SCH (08:29)
[2017-01-20] MEDS: MAGNESIUM CHLORIDE 64MG DELAYED REL TAB PO SCH ×2 (08:29→21:24)
[2017-01-20] MEDS: LEVETIRACETAM 250 MG TAB PO SCH ×2 (08:30→21:24)
[2017-01-20] MEDS: VENLAFAXINE HCL XR 37.5 MG CAPXR PO SCH (08:31)
[2017-01-20] MEDS: INSULIN ASPART 100 UNITS/ML 3 ML PEN SC SCH ×4 (09:53→21:00)
[2017-01-20] MEDS: INSULIN GLARGINE SOLOSTAR 100 UNITS/ML 3 ML PEN SC SCH ×2 (09:54→21:28)
--- NOTE | 2017-01-20 12:40 | DIAGNOSTIC IMAGING REPORT ---
(CHEST) THORAX WITHOUT CLINICAL HISTORY: 51 years-old Male presenting with pneumonia. hx of lung cancer. TECHNIQUE: Multidetector CT imaging of the chest was performed without the use of intravenous contrast. IV contrast: None. A dose lowering technique was used consistent with the principles of ALARA (as low as reasonably achievable). COMPARISON: Correlation made to CT of the abdomen and pelvis from 01/14/2017. CT DOSE (mGy.cm): The estimated cumulative dose is 376.23 mGy.cm. 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 On soft tissue windows, right upper extremity PICC terminates in the upper SVC. Few small thyroid nodules noted bilaterally, the largest in the right lobe measuring 7 mm. Infiltration of the chest wall. No axillary, supraclavicular, or mediastinal lymphadenopathy. Evaluation of the laura is limited without intravenous contrast. Normal aorta. Normal heart size. The intraventricular blood flow is less dense than adjacent myocardium consistent with anemia. Trace pericardial effusion. Small to moderate left pleural effusion with loculated fluid anteriorly in the towards the apex. Cholecystectomy clips. Stomach distended with ingested material. 2 stimulator leads to the gastric antrum partially visualized. On lung windows, postoperative changes status post left upper lobectomy. Interval development of patchy centrilobular nodular and groundglass consolidation throughout the left lung sparing the superior segment. Solid 5 mm nodule posteriorly in the superior segment of the left lower lobe (series 3 image 22), not included within the [id number] on prior CT of the abdomen and pelvis. No contralateral pulmonary nodule. Postsurgical changes of left upper lobe bronchus. Remaining airways patent. On bone windows, mild degenerative changes of the thoracic spine. No destructive osseous lesion. IMPRESSION: 1. Interval development of patchy opacities in the left lower lobe are patent with pneumonia. This is new since CT of the abdomen and pelvis on 01/14/2017. 2. Small to moderate left parapneumonic effusion. 3. Post surgical changes of left upper lobectomy. 4. Solid 5 mm pulmonary nodule in the left lower lobe. Comparison to prior exams would be helpful to establish the chronicity of this nodule, especially in relation to the patient's given history of presumed left upper lobe lung cancer. Electronically signed by: Ronnell Renee M.D. 01/20/2017 12:38 PM Dictated Date/Time: 01/20/2017 12:31 PM
[2017-01-20] MEDS: VANCOMYCIN INJ 1,000 MG in SODIUM CHLORIDE 0.9% 250ML 250 ML IV SCH (13:21)
--- NOTE | 2017-01-20 14:49 | Progress Note ---
Internal Med Progress Note Date of Service: Jan 20, 2017. Provider Documentation: SUBJECTIVE: sitting on the hair pain al over increased drainage from his intrathecal pump site persistent nausea afebrile today hemodynamics stable cough with yellow sputum OBJECTIVE: Vital Signs-as noted below Exam: General-alert and oriented. not in distress ENT-normal hearing Neck-no neck masses Lungs-cta b/l no wheezing no crackles Heart-s1 and s2 heard regular rhythm, no murmurs Abdomen-soft bowel sounds present non tender no distension Extremities no edema present no erythema musculoskeletal s/p I and D of intrathecal pump site at L3 area-in dressing- draining Neuro-alert and oriented moves extremities Lab data as noted below. ASSESSMENT & PLAN: This is a 51-year-old male who presents with leaking from the intrathecal pump. 1. Intrathecal pump leakage, seroma versus abscess at L3 level. s/p I and D by pain management cx growing MSSA and Acinetobacter s/p picc line plan for iv daptomycin for 4 weeks and oral cipro cipro held and started on iv cefepime and Levaquin for pneumonia and possible uti increased leak from procedure site- appreciate pain management input-Plan for OR in am if continues to drain holding daptomycin and started on v vanco as dapto has no lung penetration. Sepsis 01/19/17 temp, tachycardia, low BP, cxr pneumonia repeat blood cx and urine cx started on iv cepemine and po Levaquin on vancomycin as above ct chest shows left lower lobe pneumonia,Small to moderate left parapneumonic effusion and left luing nodule consulted pulmonary Chronic pain syndrome from the metastatic lung cancer. We will place him on IV and po Dilaudid p.r.n. pain management on board.doing ok Ambulatory dysfunction: pt/ot Metastatic lung cancer. The patient is currently no longer on chemo and is going to see Dr. Amanda next week for further plan of care.consulted History of diabetes.currently on Lantus 15units bid and iss will hold tomorrow am Lantus as patient will be npo after midnight History of gastroparesis and on gastric pacemaker. Currently, having nausea and vomiting and CAT scan showed esophagitis. On PPI Consulted GI. s/p egd has reflux oesophagitis. because food in stomach from his gastroparesis bleeding scan was done which was unremarkable Gi recommends ppi bid and Carafate. History of hypertension. Continue amlodipine and Lopressor with hold parameters. We will monitor the blood pressure. History of epilepsy. Continue Keppra. Currently stable. History of neurogenic bladder. We will monitor. Deep venous thrombosis prophylaxis, SCDs for now. DISPOSITION: Monitor in medical floor. pt/ot social service for d/c planning Vital Signs: Date Time Temp Pulse Resp B/P (MAP) Pulse Ox O2 Delivery O2 Flow Rate FiO2 01/20/17 07:25 2.0 01/20/17 06:50 37.1 92 22 137/75 (95) 93 Nasal Cannula 2.0 01/19/17 23:45 97 Nasal Cannula 2.0 01/19/17 23:40 37.2 94 16 114/67 (83) 82 Room Air 01/19/17 23:38 Nasal Cannula 2.0 01/19/17 21:47 37.3 98 16 153/84 (107) 92 Nasal Cannula 2.0 01/19/17 21:26 99 137/81 (99) 01/19/17 16:15 Nasal Cannula 2.0 01/19/17 15:09 37.4 94 16 115/75 (88) 96 Room Air Lab Results: Results Past 24 Hours Test 01/19/17 15:18 01/19/17 17:06 01/19/17 20:30 01/19/17 22:15 Range/Units Bedside Glucose 252 251 261 70-99 mg/dl Sodium Level 134 136-145 mmol/L Potassium Level 4.4 3.5-5.1 mmol/L Chloride Level 100 98-107 mmol/L Carbon Dioxide Level 28 21-32 mmol/L Anion Gap 6.0 3-11 mmol/L Blood Urea Nitrogen 30 7-18 mg/dl Creatinine 2.00 0.60-1.40 mg/dl Est Creatinine Clear Calc Drug Dose 42.3 ml/min Estimated GFR () 43.5 Estimated GFR (Non- 37.5 BUN/Creatinine Ratio 15.0 10-20 Random Glucose 186 70-99 mg/dl Estimated Average Glucose 160 mg/dl Hemoglobin A1c 7.2 4.5-5.6 % Calcium Level 8.2 8.5-10.1 mg/dl Magnesium Level 1.9 1.8-2.4 mg/dl Test 01/20/17 05:19 01/20/17 08:14 01/20/17 12:15 Range/Units Sodium Level 139 136-145 mmol/L Potassium Level 4.1 3.5-5.1 mmol/L Chloride Level 105 98-107 mmol/L Carbon Dioxide Level 27 21-32 mmol/L Anion Gap 7.0 3-11 mmol/L Blood Urea Nitrogen 28 7-18 mg/dl Creatinine 1.70 0.60-1.40 mg/dl Est Creatinine Clear Calc Drug Dose 49.7 ml/min Estimated GFR () 52.9 Estimated GFR (Non- 45.7 BUN/Creatinine Ratio 16.2 10-20 Random Glucose 122 70-99 mg/dl Calcium Level 7.7 8.5-10.1 mg/dl Bedside Glucose 132 196 70-99 mg/dl Microbiology Results 01/19/17 Blood Culture, Received Pending 01/19/17 MRSA DNA Surveillance Screen - Final, Complete Specimen Negative for MRSA by DNA Probe 01/20/17 Urine Culture, Received Pending
[2017-01-20 15:02] VITALS: BP 101/62; PULSE 90; TEMP 37.6; O2SAT 93
--- NOTE | 2017-01-20 16:34 | Pulmonary Consultation ---
History General Date of Service: Jan 20, 2017. Stated Complaint: Intractable Nausea And Vomiting, Intrathecal Pump HPI The patient is a 51 year old male who presents to [facility] with complaints of Intractable Nausea And Vomiting, Intrathecal Pump. The patient's primary care provider is Bran Burgess M.D.. This is a 51-year-old gentleman with past medical history of left upper lobe non -small cell lung cancer (adenocarcinoma) status post resection and chemotherapy , diabetes, diabetic gastroparesis and gastric pacemaker, epilepsy, neurogenic bladder and neuropathy. He was recently admitted in December 2016 for implantation of an intrathecal pump for chronic intractable pain. Since his discharge he states that the pump has been leaking a lot. He said he had worsening pain. He denied any fevers, but states that he has had some chills associated with episodes of nausea and vomiting. At the time of his admission he denied any abdominal pain, constipation or diarrheal symptoms. He denied any chest respiratory symptoms. This includes chest pain, shortness of breath or cough. He did admit to generalized weakness and fatigue. He was admitted for intrathecal pump leakage with seroma versus abscess at L3. He was empirically started on IV vancomycin for which she has been on for 7 days. Gram stain from catheter site grew pansensitive Staphylococcus aureus and lower right back grew pansensitive Acinetobacter and staph aureus. Patient seen and examined today. He denies any fevers, chills, shortness of breath or chest pain. He states that he started to have productive cough with yellowish sputum yesterday. He states that yesterday he was completely out of it. Blood and urine were drawn and are still pending. Imaging of the chest from 01/19/2017 showed dense airspace opacities in the left lingular and lower lobe consistent with pneumonia. A CT chest was done this afternoon 01/20/2017 which showed patchy centrilobular nodular groundglass opacifications in the lingula and left lower lobe which was not seen on previous CT of the abdomen and pelvis on 01/14/2017. There was also a solid 5 mm nodule seen in the superior segment of the left lower lobe. A small to moderate left parapneumonic effusion was also noted. He is currently on vancomycin, Levaquin and cefepime. ID has been consulted. Historian: patient Onset: last week Review of Systems Constitutional: reports: as stated in HPI Eyes: reports: as stated in HPI ENT: reports: as stated in HPI Cardiovascular: reports: as stated in HPI Respiratory: reports: as stated in HPI Gastrointestinal: reports: as stated in HPI Genitourinary - Male: reports: as stated in HPI Musculoskeletal: reports: as stated in HPI Integumentary: reports: as stated in HPI Neurologic: reports: as stated in HPI Psychiatric: reports: as stated in HPI Endocrine: as stated in HPI Hematologic / Lymphatic: as stated in HPI Allergic / Immunologic: as stated in HPI All Other Symptoms All Other Systems: Reviewed and Negative (8) Past Medical History Past Medical History: Hypertension, left upper lobe non-small cell lung cancer status post resection and chemotherapy, diabetes, diabetic gastroparesis and gastric pacemaker, epilepsy, neurogenic bladder and neuropathy. Orthostatic hypertension. Past Surgical History: Colonoscopy, EGDs, knee arthroscopy, tonsillectomy/adenoidectomy, Thorascopic lung resection (at [facility]), intrathecal pump placement Family History Cancer Diabetes mellitus Hypertension Father and mother both have diabetes Sr. with renal cell carcinoma Aunt with bilateral lung transplant Social History He is . Former smoker of a half a pack per day for many years. He quit in 2000 he denies any illicit drug use or alcohol use. 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 Hx Tobacco Use In Past Year?: No Smoking Status: Former Smoker Marital status: Housing status: lives with significant other Occupational Status: disabled History of MDRO History of MDRO: No Allergies Coded Allergies: BEE STING (Verified Allergy, Mild, SWELLING AT SITE, SOB, 01/14/17) Penicillins (Unverified Allergy, Unknown, "SINCE "-Amoxicillin, ) Current Medications Reported Home Medications Medications Dose Route/Sig Max Daily Dose Days Date Category Dose Instructions Neurontin (Gabapentin) 600 Mg Tab 1 Tab PO TID 30 01/14/17 Rx Ventolin Hfa (Albuterol) 200 Puffs/12300 Mcg Aers 2 Puffs INH Q6H PRN 01/14/17 Rx Norvasc (Amlodipine Besylate) 10 Mg Tab 5 Mg PO QAM 01/14/17 Rx Keppra (Levetiracetam) 750 Mg Tab 750 Mg PO BID 12/19/16 Reported Folvite (Folic Acid) 1 Mg Tab 1 Tab PO QAM 90 12/19/16 Reported Novolog (Insulin Aspart) 100 Units/Ml Inj 5 Units SC ACHS 10/23/16 Reported SLIDING SCALE PER MD Effexor Xr (Venlafaxine Hcl) 37.5 Mg Cap 37.5 Mg PO QAM 30 10/23/16 Reported Protonix (Pantoprazole Sodium) 40 Mg Tab 40 Mg PO QAM 10/14/16 Reported Tylenol (Acetaminophen) 325 Mg Tab 650 Mg PO TID PRN 10/14/16 Reported Phenergan Suppository (Promethazine HCl) 25 Mg Supp 25 Mg ID Q4H PRN 10/14/16 Reported Reglan (Metoclopramide Hcl) 10 Mg Tab 10 Mg PO ACHS PRN 08/25/16 Reported Lopressor (Metoprolol Tartrate) 25 Mg Tab 25 Mg PO BID 08/25/16 Reported Slow-Mag Tab (Magnesium Chloride) 64 Mg Tabcr 64 Mg PO BID 08/25/16 Reported Dilaudid (Hydromorphone Hcl) 2 Mg Tab 8 Mg PO Q8 PRN 08/25/16 Reported Ondansetron HCl (Ondansetron) 4 Mg Tab 8 Mg PO Q8 PRN 08/15/16 Reported Aspirin Ec (Aspirin) 81 Mg Tab 81 Mg PO QAM 08/05/16 Reported Lantus (Insulin Glargine) 100 Unit/Ml Inj 25 Units SC QPM 08/05/16 Reported Epipen (Epinephrine) 0.3 Mg/0.3 Ml Inj 0.3 Mg IM UD PRN 04/16/13 Reported Multivitamins (Multiple Vitamin) 1 Cap Cap 1 Cap PO QAM 04/16/13 Reported Physical Physical Exam Vital Signs: Date Time Temp Pulse Resp B/P (MAP) Pulse Ox O2 Delivery O2 Flow Rate FiO2 01/20/17 15:02 37.6 90 18 101/62 (75) 93 Room Air 01/20/17 07:25 2.0 01/20/17 06:50 37.1 92 22 137/75 (95) 93 Nasal Cannula 2.0 01/19/17 23:45 97 Nasal Cannula 2.0 01/19/17 23:40 37.2 94 16 114/67 (83) 82 Room Air 01/19/17 23:38 Nasal Cannula 2.0 01/19/17 21:47 37.3 98 16 153/84 (107) 92 Nasal Cannula 2.0 01/19/17 21:26 99 137/81 (99) 01/19/17 16:15 Nasal Cannula 2.0 General Appearance: NO APPARENT DISTRESS, other (chronically ill appearing) Head: NORMOCEPHALIC, ATRAUMATIC Eyes: PERRLA, NO DISCHARGE, SCLERAE NORMAL ENT: NORMAL MOUTH EXAM Neck: NORMAL RANGE OF MOTION, NO TENDERNESS, TRACHEA MIDLINE, SUPPLE (an elderly) Respiratory: other (good air entry bilaterally, decreased on left lower lobe.) Cardiovasular: REGULAR RATE/RHYTHM, NORMAL S1S2 Abdomen: NON TENDER, NORMAL BOWEL SOUNDS Back: other (abdominal band in place) Upper Extremities: other (bleeding from the cuticles, no cyanosis, no clubbing) Lower Extremities: edema (+3 edema bilateral lower extremities. Left knee brace in place) Pulses: dorsalis pedis (R) (1+), dorsalis pedis (L) (1+) Neuro: ALERT, ORIENTED x 3, NORMAL SPEECH, NORMAL MEMORY Psychiatric: NORMAL AFFECT, NO SUICIDAL IDEATION, CONTRACTS FOR SAFETY Diagnostics Labs Results Past 24 Hours Test 01/19/17 17:06 01/19/17 20:30 01/19/17 22:15 01/20/17 05:19 Range/Units Bedside Glucose 251 261 70-99 mg/dl Sodium Level 134 139 136-145 mmol/L Potassium Level 4.4 4.1 3.5-5.1 mmol/L Chloride Level 100 105 98-107 mmol/L Carbon Dioxide Level 28 27 21-32 mmol/L Anion Gap 6.0 7.0 3-11 mmol/L Blood Urea Nitrogen 30 28 7-18 mg/dl Creatinine 2.00 1.70 0.60-1.40 mg/dl Est Creatinine Clear Calc Drug Dose 42.3 49.7 ml/min Estimated GFR () 43.5 52.9 Estimated GFR (Non- 37.5 45.7 BUN/Creatinine Ratio 15.0 16.2 10-20 Random Glucose 186 122 70-99 mg/dl Estimated Average Glucose 160 mg/dl Hemoglobin A1c 7.2 4.5-5.6 % Calcium Level 8.2 7.7 8.5-10.1 mg/dl Magnesium Level 1.9 1.8-2.4 mg/dl Test 01/20/17 08:14 01/20/17 12:15 Range/Units Bedside Glucose 132 196 70-99 mg/dl Microbiology Results 01/19/17 MRSA DNA Surveillance Screen - Final, Complete Specimen Negative for MRSA by DNA Probe 01/20/17 Urine Culture, Received Pending Diagnostic Radiology (CHEST) THORAX WITHOUT CLINICAL HISTORY: 51 years-old Male presenting with pneumonia. hx of lung cancer. TECHNIQUE: Multidetector CT imaging of the chest was performed without the use of intravenous contrast. IV contrast: None. A dose lowering technique was used consistent with the principles of ALARA (as low as reasonably achievable). COMPARISON: Correlation made to CT of the abdomen and pelvis from 01/14/2017. CT DOSE (mGy.cm): The estimated cumulative dose is 376.23 mGy.cm. 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 On soft tissue windows, right upper extremity PICC terminates in the upper SVC. Few small thyroid nodules noted bilaterally, the largest in the right lobe measuring 7 mm. Infiltration of the chest wall. No axillary, supraclavicular, or mediastinal lymphadenopathy. Evaluation of the laura is limited without intravenous contrast. Normal aorta. Normal heart size. The intraventricular blood flow is less dense than adjacent myocardium consistent with anemia. Trace pericardial effusion. Small to moderate left pleural effusion with loculated fluid anteriorly in the towards the apex. Cholecystectomy clips. Stomach distended with ingested material. 2 stimulator leads to the gastric antrum partially visualized. On lung windows, postoperative changes status post left upper lobectomy. Interval development of patchy centrilobular nodular and groundglass consolidation throughout the left lung sparing the superior segment. Solid 5 mm nodule posteriorly in the superior segment of the left lower lobe (series 3 image 22), not included within the [id number] on prior CT of the abdomen and pelvis. No contralateral pulmonary nodule. Postsurgical changes of left upper lobe bronchus. Remaining airways patent. On bone windows, mild degenerative changes of the thoracic spine. No destructive osseous lesion. IMPRESSION: 1. Interval development of patchy opacities in the left lower lobe are patent with pneumonia. This is new since CT of the abdomen and pelvis on 01/14/2017. 2. Small to moderate left parapneumonic effusion. 3. Post surgical changes of left upper lobectomy. 4. Solid 5 mm pulmonary nodule in the left lower lobe. Comparison to prior exams would be helpful to establish the chronicity of this nodule, especially in relation to the patient's given history of presumed left upper lobe lung cancer. CHEST ONE VIEW PORTABLE CLINICAL HISTORY: cough COMPARISON STUDY: 10/14/2016 FINDINGS: There is a right-sided PICC catheter, the tip of which projects over the superior vena cava. The heart is normal in size. There are dense consolidative changes within the left mid and lower lung zone, consistent with a pneumonia. Clinical and radiographic follow-up is recommended.[ IMPRESSION: Dense airspace opacities within the left mid and lower lung zone, consistent with a pneumonia. Clinical and radiographic follow-up is recommended Impression Assessment and Plan Left multilobar pneumonia Left parapneumonic effusion Left lower lobe subcentimeter solid pulmonary nodule Intrathecal pump infection Patient appears to have a healthcare acquired pneumonia. Pneumonia is seen in the lingula as well as left lower lobes. Also has history of recent intrathecal infection which is growing Acetobacter as well MRSA. He is currently being treated with vancomycin, Levaquin and cefepime. ID is on board and following. Blood cultures are pending. I offered patient a possible diagnostic thoracentesis. He declined at the current time. He said that he would like to continue conservatively with IV antibiotics. If there is no improvement he will re-consider. Obtain sputum culture. From a respiratory standpoint he is stable. He is not requiring any increased amount of oxygen. At the time of my evaluation he is on room air. If he should develop hypoxia I would give him supplemental oxygen to maintain SaO2 above 92%. There is no need for nebulizer treatments or steroids at this time. Encourage incentive spirometry. He is status post left upper lobe resection and chemotherapy for adenocarcinoma. Of note there is a 5 mm nodule in the left lower lobe. There is no previous imaging for comparison. He should have repeat imaging in 4-6 weeks after interval resolution of infectious etiology to reassess. Continue with current management for other medical problems per primary team. I appreciate the consult. Given further questions feel free to contact the pulmonary team.
[2017-01-20] MEDS: CEFEPIME IV 2,000 MG in DEXTROSE 5% 100ML 100 ML IV SCH (16:40)
--- NOTE | 2017-01-20 20:34 | Anesthesiology Progress Note ---
Anesthesia Progress Note Date of Service Jan 20, 2017. Progress Notes This is a 51 y/o w male s/p implanted device in lumbar spine for I&D of the same.Pt is s/p NAKUL lobectomy for cancer,HTN,Hperlipidemia,,GERD/Gastroparesis,Hx/ o seizures vs pseudoseizures,,IDDM,diabetic PN and anemia.Discussed anesthesia w /pt,risks vs benefits,all questions answered. ASA 4
[2017-01-20 21:22] VITALS: BP 152/86; PULSE 99
[2017-01-20 23:25] VITALS: BP 115/67; PULSE 91; TEMP 37; O2SAT 91
[2017-01-21] VITALS (18 sets, daily range): BP systolic 123–196; BP diastolic 73–112; PULSE 76–97; TEMP 36.3–37; O2SAT 92–98
[2017-01-21] MEDS ORDERED: NURSING DECISION MEDICATION ORDER SCH (01:00)
[2017-01-21] MEDS: HYDROmorphone INJ 1 MG/ML SYR IV PRN ×5 (01:09→22:04)
[2017-01-21] MEDS: VANCOMYCIN INJ 1,000 MG in SODIUM CHLORIDE 0.9% 250ML 250 ML IV SCH ×2 (01:09→15:47)
[2017-01-21] MEDS: SODIUM CHLORIDE 0.9% 1000ML 1,000 ML IV SCH ×2 (01:09→14:48)
[2017-01-21] MEDS: ONDANSETRON INJ 2 MG/ML 2 ML VIAL IV PRN ×2 (06:02→15:48)
[2017-01-21] MEDS: INSULIN ASPART 100 UNITS/ML 3 ML PEN SC SCH ×4 (06:12→22:06)
[2017-01-21 06:18] LABS: HEMATOCRIT 20.6 % (42-52); MEAN CELL VOLUME 86.6 fL (80-100); MEAN CORPUSCULAR HEMOGLOBIN 29.4 pg (25-34); MEAN PLATELET VOLUME 9.7 fL (7.4-10.4); PLATELET COUNT 178 K/uL (130-400); RED BLOOD COUNT 2.38 M/uL (4.7-6.1); WHITE BLOOD COUNT 6.77 K/uL (4.8-10.8)
[2017-01-21 06:28] LABS: BUN/CREATININE RATIO 14.8 (10-20); CALCIUM 8.1 mg/dl (8.5-10.1); CREATININE 1.3 mg/dl (0.60-1.40); MAGNESIUM 1.7 mg/dl (1.8-2.4); POTASSIUM 4.4 mmol/L (3.5-5.1)
[2017-01-21 06:30] LABS: BASO % 0.1 %; BASO ABS # 0.01 K/uL (0-0.2); COMPLETE YES; EOS % 5.2 %; IG% 0.1 %; LYMPH % 14.3 %; LYMPH ABS # 0.97 K/uL (1.2-3.4); MONO % 11.7 %; NEUT % 68.6 %
[2017-01-21] MEDS ORDERED: MAGNESIUM SULFATE 1GM / D5W 1 GM in PREMIXED IN D5W 100 ML IV STA (06:51)
[2017-01-21] MEDS: HydrALAZINE HCL 20 MG/ML VIAL IV. PRN ×2 (08:03→19:26)
--- NOTE | 2017-01-21 08:47 | Pain Management Progress Note ---
Pain Management Progress Note Date of Service Jan 21, 2017. Subjective Jeff reports to me today that he had continued increased drainage over his lumbar wound compared to previous over the last 24 hours. He states that he hasn't noted any additional drainage from his front pocket incision. He reports fair pain control around 7 out of 10 and feels that his pain control with intrathecal pump is superior to that of prior to his pump with transdermal and oral narcotics. He utilized multiple doses of IV hydromorphone over the last 24 hours. He denies any other overnight complaints. He denies any change in bowel or bladder continence, motor weakness, foot drop, falls. He continues to note difficulty with vomiting and has plans to return to [facility] to have his gastric stimulator reprogrammed. Objective Vital Signs: Last Vital Signs Documentation Date Time Temp Pulse Resp B/P (MAP) Pulse Ox O2 Delivery O2 Flow Rate FiO2 01/21/17 07:36 37.0 90 19 177/95 (122) 92 Room Air 01/20/17 07:25 2.0 Physical Exam: He is awake and alert and oriented to times place and person. He demonstrates normal and clear sensorium. He is moving about his room preparing his breakfast. He does not appear to be any significant pain or have a postural type headache. Inspection of his back incision demonstrates moderate amount of serous drainage on the bandage. There is a moderate amount of tenderness tenderness surrounding his surgical site. There is no erythema surrounding his lumbar wound. There is clear drainage, it is not purulent in nature. His front intrathecal pump pocket incision appears to be well healing at this time. He is spontaneous movement of his lower extremities and intact sensation in the lower extremities. Laboratory Laboratory Review: results personally reviewed by me Laboratory Findings 01/21/17 05:26 Red Blood Count 2.38 L, Mean Corpuscular Volume 86.6, Mean Corpuscular Hemoglobin 29.4, Mean Corpuscular Hemoglobin Concent 34.0, Mean Platelet Volume 9.7, Neutrophils (%) (Auto) 68.6, Lymphocytes (%) (Auto) 14.3, Monocytes (%) ( Auto) 11.7, Eosinophils (%) (Auto) 5.2, Basophils (%) (Auto) 0.1, Neutrophils # (Auto) 4.64, Lymphocytes # (Auto) 0.97 L, Monocytes # (Auto) 0.79 H, Eosinophils # (Auto) 0.35, Basophils # (Auto) 0.01 Assessment 1. CSF leak post catheter insertion. 2. Neuropathic pain. 3. Opioid dependance. 4. Metastatic lung cancer 5. Gastroparesis with gastric stimulator insertion Recommendations 1. Will take Jeff back to the OR today to have incision and drainage and repair of CSF leak today. Will consult orthospine Dr. Erlin Gomez for his assistance intraoperatively to repair the CSF leak. 2. Continue oral narcotics post I&D of the catheter site for surgical nociceptive pain reduction 3. I increased his intrathecal pump dosing today by 5% to run hydromorphone at 0.345mg/day. Printout is on chart. 4. I appreciate the hospitalist and infectious disease recommendations and helping care for this patient
[2017-01-21] MEDS: METOPROLOL TARTRATE 25 MG TAB PO SCH ×2 (09:00→20:53)
[2017-01-21] MEDS: MAGNESIUM CHLORIDE 64MG DELAYED REL TAB PO SCH ×2 (09:00→20:53)
[2017-01-21] MEDS: MULTIVITAMIN TAB PO SCH (09:00)
[2017-01-21] MEDS: VENLAFAXINE HCL XR 37.5 MG CAPXR PO SCH (09:00)
[2017-01-21] MEDS: LEVETIRACETAM 250 MG TAB PO SCH ×2 (09:00→20:54)
[2017-01-21] MEDS: PANTOprazole SOD 40 MG TAB PO SCH ×2 (09:00→20:53)
[2017-01-21] MEDS: INSULIN GLARGINE SOLOSTAR 100 UNITS/ML 3 ML PEN SC SCH ×2 (09:00→22:07)
[2017-01-21] MEDS: GABAPENTIN 600 MG TAB PO SCH ×3 (09:00→20:53)
[2017-01-21] MEDS: SUCRALFATE 1 GM/10 ML UDC PO SCH ×4 (09:00→20:53)
[2017-01-21] MEDS ORDERED: ACETAMINOPHEN 325 MG TAB PO SCH (09:30)
[2017-01-21 10:13] LABS: HEMATOCRIT 23.1 % (42-52)
--- NOTE | 2017-01-21 11:12 | Progress Note ---
Internal Med Progress Note Date of Service: Jan 21, 2017. Provider Documentation: SUBJECTIVE: has pain all over denies any blood in stool or urine no black stools no coughing up of blood afebrile 'today denies son has nausea awaiting to go to OR today for intrathecal pump site leak OBJECTIVE: Vital Signs-as noted below Exam: General-alert and oriented. not in distress ENT-normal hearing Neck-no neck masses Lungs-cta b/l no wheezing no crackles Heart-s1 and s2 heard regular rhythm, no murmurs Abdomen-soft bowel sounds present non tender no distension Extremities no edema present no erythema musculoskeletal s/p I and D of intrathecal pump site at L3 area-in dressing- draining Neuro-alert and oriented moves extremities Lab data as noted below. ASSESSMENT & PLAN: This is a 51-year-old male with hx of lung cancer s/p left upper lung lobectomy who had been placed with intra thecal pump in december 2016 fro chronic pain presents with leaking from the intrathecal pump and was s/p I and D on day of admission. Cultures grew MSSA and Acinetobacter. ID recommended 4 weeks of iv daptomycin and po Cipro. Also seen by GI for oesophagitis and persistent nausea. s/p egd and recommended ppi and Carafate.Has gastric pace maker for gastroparesis. Was also s/p bleeding scan for anemia and was negative study.Again on the weekended patient developed fever, tachycardia, low BP and more drainage from intra thecal pump site. CXR showed Left lung pneumonia. CT chest showed left lower lobe pneumonia and parapneumonic effusions. Appropriate abx was placed. Consulted Pulmonary . Plan for thoracocentesis if no improvement. Pain management again taken to OR today to fix the leaking intra thecal site. Await repeat cx from OR. Patient want to d/w about his lung cancer with and consult was placed. Also ct scan showed left lung nodule and no prior imaging to compare.Also hb dropped to 7.8 today. No obvious signs of bleeding. repeat Hemoccult. Transfusing two units prbc.Await heme/onco consult.On gentle fluids monitor for volume overload. Await repeat cx. heme/onco consult pt/ot. 1. Intrathecal pump leakage, seroma versus abscess at L3 level. s/p I and D by pain management on 01/14/17 cx growing MSSA and Acinetobacter s/p picc line plan for iv daptomycin for 4 weeks and oral cipro by ID cipro held and started on iv cefepime and Levaquin for pneumonia and possible uti Holding daptomycin and started on v vanco as dapto has no lung penetration. increased leak from procedure site- appreciate pain management input-Plan for OR today. Sepsis 01/19/17 temp, tachycardia, low BP, cxr pneumonia repeat blood cx and urine cx started on iv cefepime and po Levaquin on vancomycin as above ct chest shows left lower lobe pneumonia,Small to moderate left parapneumonic effusion and left lung nodule consulted pulmonary and appreciate input- if no improvement plan for thoracocentesis Chronic pain syndrome from the metastatic lung cancer. We will place him on IV and po Dilaudid p.r.n. pain management on board.doing ok Ambulatory dysfunction: pt/ot Metastatic lung cancer. The patient is currently no longer on chemo and is going to see Dr. Amanda next week for further plan of care.consulted and await inputs History of diabetes.currently on Lantus 15units bid and iss Holding today am Lantus as patient will be npo after midnight and going to OR will monitor History of gastroparesis and on gastric pacemaker. Currently, having nausea and vomiting and CAT scan showed esophagitis. On PPI Consulted GI. s/p egd has reflux oesophagitis. because food in stomach from his gastroparesis bleeding scan was done which was unremarkable Gi recommends ppi bid and Carafate. Anemia etilogy? hb 7.0 today recent stool for Hemoccult negative and bleeding scan was negative will recheck stools plan for two units prbc today heme/onco consulted History of hypertension. Continue amlodipine and Lopressor with hold parameters. We will monitor the blood pressure. History of epilepsy. Continue Keppra. Currently stable. History of neurogenic bladder. We will monitor. Deep venous thrombosis prophylaxis, SCDs for now. DISPOSITION: Monitor in medical floor. pt/ot social service for d/c planning Vital Signs: Date Time Temp Pulse Resp B/P (MAP) Pulse Ox O2 Delivery O2 Flow Rate FiO2 01/21/17 16:44 36.8 94 16 147/78 (101) 94 Room Air 01/21/17 15:45 Nasal Cannula 2.0 01/21/17 15:29 36.3 95 16 161/86 (111) 92 Nasal Cannula 2.0 18/17 15:04 36.5 96 18 157/87 (110) 95 Room Air 01/21/17 14:30 36.9 93 17 163/94 (117) 93 Nasal Cannula 3.0 18/17 14:30 Nasal Cannula 3.0 18/17 14:30 93 Nasal Cannula 3.0 18/17 14:21 149/91 18/17 14:18 94 16 18/17 14:18 94 16 96 18/17 14:16 155/91 18/17 14:13 93 13 18/17 14:13 93 13 87 18/17 14:11 151/91 18/17 14:08 94 14 96 18/17 14:08 94 14 18/17 14:06 154/91 18/17 14:03 93 12 92 18/17 14:03 93 12 01/21/17 14:01 155/89 01/21/17 13:58 94 13 86 18/17 13:58 94 13 18/17 13:56 162/95 18/17 13:53 94 13 93 18/17 13:53 94 13 18/17 13:51 150/98 18/17 13:48 94 14 87 18/17 13:48 94 14 18/17 13:47 36.9 94 18 150/98 95 Nasal Cannula 3 01/21/17 13:46 157/96 18/17 13:43 96 13 18/17 13:43 96 13 91 18/17 13:41 168/102 18/17 13:40 97 18 168/102 97 Nasal Cannula 3 18/17 13:38 96 11 99 18/17 13:38 96 11 18/17 13:36 156/99 18/17 13:33 95 13 96 /18/17 13:33 95 13 18/17 13:32 95 13 18/17 13:32 95 13 95 18/17 13:31 167/98 18/17 13:27 96 14 18/17 13:27 95 14 94 9/18/17 13:26 164/100 01/21/17 13:22 96 14 99 01/21/17 13:22 96 14 01/21/17 13:21 158/97 01/21/17 13:20 96 14 158/97 95 Oxymask 10 01/21/17 13:17 98 13 01/21/17 13:17 98 13 94 01/21/17 13:16 170/97 01/21/17 13:12 100 13 01/21/17 13:12 100 13 100 01/21/17 13:11 177/99 01/21/17 13:10 100 16 177/99 100 Oxymask 10 01/21/17 13:07 101 19 99 01/21/17 13:07 103 19 01/21/17 13:06 169/97 01/21/17 13:03 159/90 01/21/17 13:02 101 21 01/21/17 13:02 36.8 101 16 159/90 98 Oxymask 10 01/21/17 13:02 100 21 98 01/21/17 07:36 37.0 90 19 177/95 (122) 92 Room Air 01/21/17 07:20 Room Air 01/20/17 23:40 Room Air 01/20/17 23:25 37.0 91 18 115/67 (83) 91 Room Air 01/20/17 21:22 99 152/86 (108) Lab Results: Results Past 24 Hours Test 01/20/17 20:45 01/21/17 00:02 01/21/17 05:26 01/21/17 05:57 Range/Units Bedside Glucose 92 104 188 70-99 mg/dl White Blood Count 6.77 4.8-10.8 K/uL Red Blood Count 2.38 4.7-6.1 M/uL Hemoglobin 7.0 14.0-18.0 g/dL Hematocrit 20.6 42-52 % Mean Corpuscular Volume 86.6 80-100 fL Mean Corpuscular Hemoglobin 29.4 25-34 pg Mean Corpuscular Hemoglobin Concent 34.0 32-36 g/dl Platelet Count 178 130-400 K/uL Mean Platelet Volume 9.7 7.4-10.4 fL Neutrophils (%) (Auto) 68.6 % Lymphocytes (%) (Auto) 14.3 % Monocytes (%) (Auto) 11.7 % Eosinophils (%) (Auto) 5.2 % Basophils (%) (Auto) 0.1 % Neutrophils # (Auto) 4.64 1.4-6.5 K/uL Lymphocytes # (Auto) 0.97 1.2-3.4 K/uL Monocytes # (Auto) 0.79 0.11-0.59 K/uL Eosinophils # (Auto) 0.35 0-0.5 K/uL Basophils # (Auto) 0.01 0-0.2 K/uL RDW Standard Deviation 43.2 36.4-46.3 fL RDW Coefficient of Variation 13.5 11.5-14.5 % Immature Granulocyte % (Auto) 0.1 % Immature Granulocyte # (Auto) 0.01 0.00-0.02 K/uL Red Blood Cell Morphology Unremarkable Sodium Level 136 136-145 mmol/L Potassium Level 4.4 3.5-5.1 mmol/L Chloride Level 104 98-107 mmol/L Carbon Dioxide Level 27 21-32 mmol/L Anion Gap 5.0 3-11 mmol/L Blood Urea Nitrogen 19 7-18 mg/dl Creatinine 1.30 0.60-1.40 mg/dl Est Creatinine Clear Calc Drug Dose 65.0 ml/min Estimated GFR () 73.2 Estimated GFR (Non- 63.2 BUN/Creatinine Ratio 14.8 10-20 Random Glucose 187 70-99 mg/dl Calcium Level 8.1 8.5-10.1 mg/dl Magnesium Level 1.7 1.8-2.4 mg/dl Test 01/21/17 09:59 01/21/17 13:23 01/21/17 15:51 Range/Units Hemoglobin 8.0 7.8 14.0-18.0 g/dL Hematocrit 23.1 23.3 42-52 % Bedside Glucose 180 70-99 mg/dl Microbiology Results 01/21/17 Gram Stain, Received Pending 01/21/17 Bacterial Culture, Received Pending
--- NOTE | 2017-01-21 11:30 | History & Physical Bridge Note ---
H&P Re-Evaluation Bridge Note: I have examined the patient, reviewed the History & Physical and in the interval since the performance of the History & Physical I have noted the following changes of clinical significance: No changes noted
[2017-01-21] MEDS ORDERED: MIDAZOLAM HCL 1 MG/ML 2ML VIAL ONE (11:32)
[2017-01-21] MEDS ORDERED: FENTANYL CITRATE INJ 50 MCG/1 ML 2 ML VIAL ONE ×2 (11:32→12:04)
[2017-01-21] MEDS ORDERED: BUPIVACAINE/EPINEPHRINE 0.5% MPF 1:200,000 30 ML VIAL ONE (11:49)
[2017-01-21] MEDS ORDERED: BACITRACIN 50000 UNIT VIAL ONE (11:50)
[2017-01-21] MEDS ORDERED: HYDROmorphone INJ 2 MG/ML SYR/VIAL ONE ×2 (12:04→12:41)
[2017-01-21] MEDS ORDERED: FLOSEAL HEMOSTATIC MATRIX 10ML TOP ONE (12:45)
[2017-01-21] MEDS ORDERED: DURASEAL DURAL SEALANT 5ML TOP ONE (12:46)
--- NOTE | 2017-01-21 12:51 | [facility] Post Operative Brief Note ---
Immediate Operative Summary Operative Date Jan 21, 2017. Pre-Operative Diagnosis Cerebral spinal fluid Leak Post-Operative Diagnosis Same Procedure(s) Performed I+D lumbar wound with CSF leak repair Surgeon Dr Hernandez Loader Operator Supervisor Surgeon(s) Dr Gomez Estimated Blood Loss 5 Findings CSF noted and repaired Specimens Culture and sensitivity #1 deep lumbar wound for gram stain, aerobic and anaerobic Drains none Anesthesia GETA Complication(s) None Disposition Recovery Room / PACU
--- NOTE | 2017-01-21 13:03 | Orthopedic Consultation ---
Orthopedic Consultation Date of Consultation: Jan 21, 2017. Attending Physician: Aguila Saenz MD Reason for Consultation: Back pain persistent CSF leak status post intrathecal pump placement History of Present Illness Patient is status post intrathecal pump placement. Unfortunately he is established a persistent CSF leak and is struggling with meningeal irritation and headaches. He notes significant improvement in his pain with the intrathecal pump in place. Past Medical/Surgical History Medical Problems: (1) Acute kidney injury Status: Acute (2) Altered mental status Status: Acute (3) Anemia Status: Acute (4) Chronic pain Status: Acute (5) Dehydration Status: Acute (6) Dehydration Status: Acute (7) Dehydration Status: Acute (8) Dehydration Status: Acute (9) Diabetes mellitus with hyperglycemia Status: Acute (10) Failure of outpatient treatment Status: Acute (11) Hypomagnesemia Status: Acute (12) Hypomagnesemia Status: Acute (13) Intractable vomiting Status: Acute (14) Intractable vomiting Status: Acute (15) Intrathecal pump infection Status: Acute (16) Orthostatic hypotension Status: Acute (17) Vomiting Status: Acute (18) Vomiting Status: Acute Family History Cancer Diabetes mellitus Hypertension Social History Smoking Status: Former Smoker Smokeless Tobacco Use: No Alcohol Use: none Drug Use: none Marital Status: Housing Status: lives with family Occupation Status: disabled Allergies Coded Allergies: BEE STING (Verified Allergy, Mild, SWELLING AT SITE, SOB, 01/14/17) Penicillins (Unverified Allergy, Unknown, "SINCE "-Amoxicillin, ) Home Medications Scheduled Amlodipine (Norvasc), 5 MG PO QAM Aspirin (Aspirin Ec), 81 MG PO QAM Folic Acid (Folvite), 1 TAB PO QAM Gabapentin (Neurontin), 1 TAB PO TID Insulin Aspart (Novolog), 5 UNITS SC ACHS Insulin Glargine (Lantus), 25 UNITS SC QPM Levetiracetam (Keppra), 750 MG PO BID Magnesium Chloride (Slow-Mag Tab), 64 MG PO BID Metoprolol Tartrate (Lopressor) (Lopressor), 25 MG PO BID Multiple Vitamin (Multivitamins), 1 CAP PO QAM Pantoprazole (Protonix), 40 MG PO QAM Venlafaxine Hcl (Effexor Xr), 37.5 MG PO QAM Scheduled PRN Acetaminophen (Tylenol), 650 MG PO TID PRN for Pain Albuterol Hfa (Ventolin Hfa), 2 PUFFS INH Q6H PRN for SOB/Wheezing Epinephrine (Epipen), 0.3 MG IM UD PRN for ALLERGIC REACTION Hydromorphone Hcl (Dilaudid), 8 MG PO Q8 PRN for Pain Metoclopramide Hcl (Reglan), 10 MG PO ACHS PRN for Nausea Ondansetron (Ondansetron HCl), 8 MG PO Q8 PRN for Nausea Promethazine Hcl (Phenergan Suppository), 25 MG [place] Q4H PRN for Nausea or Vomiting Current Inpatient Medications Current Inpatient Medications Medications (Trade) Dose Ordered Sig/Cal Route Start Time Stop Time Status Last Admin Dose Admin Acetaminophen (Tylenol Tab) 650 mg Q4H PRN PO 01/14/17 09:15 02/13/17 09:14 01/19/17 08:26 650 MG Al Hydrox/Mg Hydrox/Simethicone (Maalox Max Susp) 15 ml Q4H PRN PO 01/14/17 09:15 02/13/17 09:14 Magnesium Hydroxide (Milk Of Magnesia Susp) 30 ml Q6H PRN PO 01/14/17 09:15 02/13/17 09:14 Ondansetron HCl (Zofran Inj) 4 mg Q6H PRN IV 01/14/17 09:15 02/13/17 09:14 01/21/17 06:02 4 MG Epinephrine (Epipen) 0.3 mg UD PRN IM 01/14/17 09:15 02/13/17 09:14 Folic Acid (Folvite Tab) 1 mg QAM PO 01/15/17 09:00 02/14/17 08:59 01/20/17 08:29 1 MG Levetiracetam (Keppra Tab) 750 mg BID PO 01/14/17 21:00 02/13/17 20:59 01/20/17 21:24 750 MG Magnesium Chloride (Slow-Mag Tab) 64 mg BID PO 01/14/17 21:00 02/13/17 20:59 01/20/17 21:24 64 MG Metoclopramide HCl (Reglan Tab) 10 mg ACHS PRN PO 01/14/17 09:15 02/13/17 09:14 01/20/17 21:42 10 MG Metoprolol Tartrate (Lopressor Tab) 25 mg BID PO 01/14/17 21:00 02/13/17 20:59 01/20/17 21:23 25 MG Promethazine HCl (Phenergan Supp) 25 mg Q4H PRN [place] 01/14/17 09:15 02/13/17 09:14 Venlafaxine HCl (effeXOR EXTENDED REL CAP) 37.5 mg QAM PO 01/15/17 09:00 02/14/17 08:59 01/20/17 08:31 37.5 MG Multivitamins (Multivitamin Tab) 1 tab QAM PO 01/15/17 09:00 02/14/17 08:59 01/20/17 08:27 1 TAB Hydromorphone HCl (Dilaudid Inj) 1 mg Q3HWA PRN IV 01/14/17 09:30 01/28/17 09:29 01/21/17 09:55 1 MG Albuterol (Ventolin Hfa Inhaler) 2 puffs Q6H PRN INH 01/14/17 09:30 02/13/17 09:29 Amlodipine Besylate (Norvasc Tab) 5 mg QAM PO 01/15/17 09:00 02/14/17 08:59 01/20/17 08:28 5 MG Gabapentin (Neurontin Tab) 600 mg TID PO 01/14/17 14:00 02/13/17 13:59 01/20/17 21:24 600 MG Glucose (Glucose 40% Gel) 15-30 GRAMS 15 GRAMS... UD PRN PO 01/14/17 10:00 02/13/17 09:59 Glucose (Glucose Chew Tab) 4-8 Tablets 4 Tabl... UD PRN PO 01/14/17 10:00 02/13/17 09:59 Dextrose (Dextrose 50% 50ML Syringe) 25-50ML OF 50% DW IV FOR... UD PRN IV 01/14/17 10:00 02/13/17 09:59 Glucagon (Glucagon Inj) 1 mg UD PRN SQ 01/14/17 10:00 02/13/17 09:59 Hydromorphone HCl (Dilaudid Tab) 2 mg Q4H PRN PO 01/15/17 09:45 01/29/17 09:44 01/17/17 11:34 2 MG Lorazepam (Ativan Tab) 1 mg TID PRN PO 01/15/17 17:30 02/14/17 17:29 01/19/17 07:36 1 MG Sucralfate (Carafate Susp) 1 gm QID PO 01/16/17 13:00 02/15/17 12:59 01/20/17 21:23 1 GM Daptomycin 500 mg/ Sodium Chloride 60 ml @ 100 mls/hr Q24H IV 01/17/17 14:00 02/28/17 13:59 Future Hold 01/19/17 14:08 100 MLS/HR Hydralazine HCl (HydrALAZINE INJ) 5 mg Q6 PRN IV. 01/17/17 15:30 02/16/17 15:29 01/21/17 08:03 5 MG Heparin Sodium (Porcine) (Heparin 10 Unit/ ml 5 ml Flush) 5 ml PRN PRN FLUSH 01/17/17 18:00 02/16/17 17:59 01/21/17 08:04 5 ML Sodium Chloride ([place] Nasal [place]) 1 sprays PRN PRN NA 01/18/17 06:30 02/17/17 06:29 Pantoprazole Sodium (Protonix Tab) 40 mg BID PO 01/18/17 21:00 02/17/17 20:59 01/20/17 21:23 40 MG Cefepime HCl 2000 mg/Dextrose 112.5 ml @ 200 mls/hr DAILY@1400 IV 01/19/17 14:15 01/29/17 13:59 01/20/17 16:40 200 MLS/HR Levofloxacin (Levaquin Tab) 750 mg DAILY@0900 PO 01/19/17 15:00 01/26/17 14:59 01/20/17 08:29 750 MG Cefepime HCl (Consult) 1 ea UD PRN N/A 01/19/17 14:30 02/18/17 14:29 Levofloxacin (Consult) 1 ea UD PRN N/A 01/19/17 14:45 02/18/17 14:44 Vancomycin HCl 1000 mg/Sodium Chloride 270 ml @ 125 mls/hr Q14H IV 01/20/17 12:00 01/26/17 23:59 01/21/17 01:09 125 MLS/HR Vancomycin HCl (Consult) 1 ea UD PRN N/A 01/19/17 17:15 02/18/17 17:14 Insulin Glargine (Lantus Solostar Pen) 15 units BID SC 01/20/17 09:00 02/13/17 20:59 01/20/17 21:28 15 UNITS Sodium Chloride 1,000 ml @ 75 mls/hr [id number] IV 01/20/17 11:45 02/19/17 11:44 01/21/17 01:09 75 MLS/HR Insulin Aspart (novoLOG ASPART) SLIDING SCALE G... Q6 SC 01/21/17 06:00 02/20/17 05:59 01/21/17 06:12 2 UNITS Acetaminophen (Tylenol Tab) 650 mg TODAY@0930 PO 01/21/17 09:30 01/21/17 14:00 Physical Exam Date Time Temp Pulse Resp B/P (MAP) Pulse Ox O2 Delivery O2 Flow Rate FiO2 01/21/17 07:36 37.0 90 19 177/95 (122) 92 Room Air 01/21/17 07:20 Room Air 01/20/17 23:40 Room Air 01/20/17 23:25 37.0 91 18 115/67 (83) 91 Room Air 01/20/17 21:22 99 152/86 (108) 01/20/17 16:00 Room Air 01/20/17 15:02 37.6 90 18 101/62 (75) 93 Room Air Laboratory Results Last 24 Hours Test 01/20/17 16:57 01/20/17 20:45 01/21/17 00:02 01/21/17 05:26 Bedside Glucose 298 mg/dl 92 mg/dl 104 mg/dl White Blood Count 6.77 K/uL Red Blood Count 2.38 M/uL Hemoglobin 7.0 g/dL Hematocrit 20.6 % Mean Corpuscular Volume 86.6 fL Mean Corpuscular Hemoglobin 29.4 pg Mean Corpuscular Hemoglobin Concent 34.0 g/dl Platelet Count 178 K/uL Mean Platelet Volume 9.7 fL Neutrophils (%) (Auto) 68.6 % Lymphocytes (%) (Auto) 14.3 % Monocytes (%) (Auto) 11.7 % Eosinophils (%) (Auto) 5.2 % Basophils (%) (Auto) 0.1 % Neutrophils # (Auto) 4.64 K/uL Lymphocytes # (Auto) 0.97 K/uL Monocytes # (Auto) 0.79 K/uL Eosinophils # (Auto) 0.35 K/uL Basophils # (Auto) 0.01 K/uL RDW Standard Deviation 43.2 fL RDW Coefficient of Variation 13.5 % Immature Granulocyte % (Auto) 0.1 % Immature Granulocyte # (Auto) 0.01 K/uL Red Blood Cell Morphology Unremarkable Sodium Level 136 mmol/L Potassium Level 4.4 mmol/L Chloride Level 104 mmol/L Carbon Dioxide Level 27 mmol/L Anion Gap 5.0 mmol/L Blood Urea Nitrogen 19 mg/dl Creatinine 1.30 mg/dl Est Creatinine Clear Calc Drug Dose 65.0 ml/min Estimated GFR () 73.2 Estimated GFR (Non- 63.2 BUN/Creatinine Ratio 14.8 Random Glucose 187 mg/dl Calcium Level 8.1 mg/dl Magnesium Level 1.7 mg/dl Test 01/21/17 05:57 01/21/17 09:59 Bedside Glucose 188 mg/dl Hemoglobin 8.0 g/dL Hematocrit 23.1 % Assessment & Plan Persistent CSF leak. Plan at this time I will assist Dr. Hernandez and exploration of the incision and insertion of the pump. We will attempt to oversew and seal the leak. This was reviewed in detail with the patient he understands and agrees.
[2017-01-21] MEDS ORDERED: GLYCOPYRROLATE INJ 0.2 MG/ML VIAL ONE (13:46)
[2017-01-21] MEDS ORDERED: ROCURONIUM BROMIDE 10 MG/ML 5 ML VIAL IV ONE (13:46)
[2017-01-21] MEDS ORDERED: NEOSTIGMINE METHYLSULFATE 1 MG/ML 10ML VIAL ONE (13:46)
[2017-01-21] MEDS ORDERED: PROPOFOL IV EMULSION 10 MG/ML 20 ML VIAL IV ONE (13:46)
[2017-01-21] MEDS ORDERED: RANITIDINE HCL 25 MG/ML INJ ONE (13:46)
[2017-01-21] MEDS ORDERED: LIDOCAINE HCL 2% 2 ML VIAL (20MG/ML) ONE (13:46)
[2017-01-21] MEDS ORDERED: DEXAMETHASONE SOD INJ 4 MG/ML VIAL ONE (13:46)
[2017-01-21] MEDS ORDERED: ONDANSETRON INJ 2 MG/ML 2 ML VIAL ONE (13:46)
[2017-01-21] MEDS ORDERED: METOCLOPRAMIDE HCL INJ 5 MG/ML 2 ML VIAL ONE (13:46)
--- NOTE | 2017-01-21 14:28 | Anesthesiology Progress Note ---
Anesthesia Post Op Note Date & Time Jan 21, 2017 at 14:28 Vital Signs Pain Intensity: 5 Vital Signs Past 12 Hours Date Time Temp Pulse Resp B/P (MAP) Pulse Ox O2 Delivery O2 Flow Rate FiO2 01/21/17 14:21 149/91 01/21/17 14:18 94 16 01/21/17 14:18 94 16 96 01/21/17 14:16 155/91 01/21/17 14:13 93 13 01/21/17 14:13 93 13 87 01/21/17 14:11 151/91 01/21/17 14:08 94 14 96 01/21/17 14:08 94 14 01/21/17 14:06 154/91 01/21/17 14:03 93 12 92 01/21/17 14:03 93 12 01/21/17 14:01 155/89 01/21/17 13:58 94 13 86 01/21/17 13:58 94 13 01/21/17 13:56 162/95 01/21/17 13:53 94 13 93 01/21/17 13:53 94 13 01/21/17 13:51 150/98 01/21/17 13:48 94 14 87 01/21/17 13:48 94 14 01/21/17 13:47 36.9 94 18 150/98 95 Nasal Cannula 3 01/21/17 13:46 157/96 01/21/17 13:43 96 13 01/21/17 13:43 96 13 91 01/21/17 13:41 168/102 01/21/17 13:40 97 18 168/102 97 Nasal Cannula 3 01/21/17 13:38 96 11 99 01/21/17 13:38 96 11 01/21/17 13:36 156/99 01/21/17 13:33 95 13 96 01/21/17 13:33 95 13 01/21/17 13:32 95 13 01/21/17 13:32 95 13 95 01/21/17 13:31 167/98 01/21/17 13:27 96 14 01/21/17 13:27 95 14 94 01/21/17 13:26 164/100 01/21/17 13:22 96 14 99 01/21/17 13:22 96 14 01/21/17 13:21 158/97 01/21/17 13:20 96 14 158/97 95 Oxymask 10 01/21/17 13:17 98 13 01/21/17 13:17 98 13 94 01/21/17 13:16 170/97 01/21/17 13:12 100 13 01/21/17 13:12 100 13 100 01/21/17 13:11 177/99 01/21/17 13:10 100 16 177/99 100 Oxymask 10 01/21/17 13:07 101 19 99 01/21/17 13:07 103 19 01/21/17 13:06 169/97 01/21/17 13:03 159/90 01/21/17 13:02 101 21 01/21/17 13:02 36.8 101 16 159/90 98 Oxymask 10 01/21/17 13:02 100 21 98 01/21/17 07:36 37.0 90 19 177/95 (122) 92 Room Air 01/21/17 07:20 Room Air Notes Mental Status: alert / awake / arousable, participated in evaluation Pt Amnestic to Procedure: Yes Nausea / Vomiting: adequately controlled Pain: adequately controlled Airway Patency, RR, SpO2: stable & adequate BP & HR: stable & adequate Hydration State: stable & adequate Anesthetic Complications: no major complications apparent
--- NOTE | 2017-01-21 14:30 | Operative Note-Pain Management ---
Pain Clinic Operative Note PREOPERATIVE DIAGNOSIS: Postoperative CSF leak after intrathecal pump implantation, intractable pain secondary to metastatic lung cancer. POSTOPERATIVE DIAGNOSIS: Same. PROCEDURE PERFORMED: Incision and drainage lumbar spine wound with repair of CSF leak. SURGEON: Dr. Idalia Hernandez. REMARKETING MANAGER: Dr. Mauricio Gomez ANESTHESIA: General endotracheal tube anesthesia IV FLUIDS: Per anesthetic record ESTIMATED BLOOD LOSS: 5ml URINE OUTPUT: Not measured. SPECIMEN: Deep lumbar incision culture The patient was noted to have a postoperative CSF leak failing conservative measures. The patient was counseled extensively on the risks, benefits of the procedure including infection, headache, bleeding, damage to surrounding structures, need for additional procedures and possible explant of intrathecal pump and wishes to proceed as above. The consent was witnessed and a time-out was performed. A patent IV was confirmed in the preoperative area and the patient was brought to the Operating Room and placed in the prone position on a Jeison frame. The patient received his antibiotics as scheduled on the floor. The patient was induced with general anesthesia and then placed in the prone position. Care was taken to pad pressure points in a standard fashion. The patients thoracolumbar spine was prepped with Duraprep followed by Betadine solution and draped in a sterile fashion with sterile drapes and ioban. Next the lumbar wound was opened with a 15 blade scalpel and hemostasis was achieved with electrocautery. The subcuticular tissues were dissected and a intrathecal catheter was noted to be in acceptable position. The anchor was reinforced with 0 silk sutures. Presence of a CSF leak was noted and cultures were taken and sent to the laboratory. The area of CSF leak was over sued with 0 Vicryl sutures. Care was taken to not damage the intrathecal catheter. The wound was irrigated with 3 bulb syringes of bacitracin infused saline. Next DuraSeal was placed over the area of CSF leak followed by FloSeal mixed with 5 mL of sterile blood from the patient. No further CSF was noted to be present. Hemostasis was excellent. The skin was closed with 2-0 Vicryl subcuticular stitches followed by 2-0 Prolene running mattress sutures for the skin. Next the area was cleansed and dressed with Xeroform followed by 4 x 4's followed by a abdominal bandage/Medipore tape and a abdominal binder was placed. The patient was awoken from general anesthesia and taken to the recovery room in good condition. I attest to the content of the Intraoperative Record and any orders documented therein. Any exceptions are noted below.
[2017-01-21] MEDS: LEVOFLOXACIN 750 MG TAB PO SCH (14:49)
[2017-01-21] MEDS: AMLODIPINE BESYLATE 5 MG TAB PO SCH (14:49)
[2017-01-21] MEDS: CEFEPIME IV 2,000 MG in DEXTROSE 5% 100ML 100 ML IV SCH (15:10)
[2017-01-21] MEDS: HYDROmorphone HCL 2 MG TAB PO PRN (15:48)
[2017-01-21 16:00] LABS: HEMATOCRIT 23.3 % (42-52)
[2017-01-21] MEDS ORDERED: FUROSEMIDE INJ 20 MG in SYRINGE 0 ML IV SCH (16:30)
[2017-01-21] MEDS ORDERED: NURSING VERBAL MED ORDER ONE (17:30)
[2017-01-21] MEDS: METOCLOPRAMIDE HCL 10 MG TAB PO PRN ×2 (17:54→22:02)
[2017-01-22] MEDS: ONDANSETRON INJ 2 MG/ML 2 ML VIAL IV PRN ×3 (01:11→16:44)
[2017-01-22] MEDS: HYDROmorphone INJ 1 MG/ML SYR IV PRN ×6 (01:11→19:37)
[2017-01-22] MEDS: SODIUM CHLORIDE 0.9% 1000ML 1,000 ML IV SCH (03:58)
[2017-01-22 04:05] VITALS: BP 147/84; PULSE 85; TEMP 36.5; O2SAT 98
[2017-01-22] MEDS ORDERED: VANCOMYCIN TROUGH SCH ×2 (05:30→11:30)
[2017-01-22] MEDS: VANCOMYCIN INJ 1,000 MG in SODIUM CHLORIDE 0.9% 250ML 250 ML IV SCH ×2 (05:51→20:04)
[2017-01-22 06:12] LABS: EOS % 0.3 %; HEMATOCRIT 25.2 % (42-52); IG% 0.3 %; LYMPH % 10.1 %; LYMPH ABS # 0.68 K/uL (1.2-3.4); MEAN CORPUSCULAR HGB CONC 33.7 g/dl (32-36); MEAN PLATELET VOLUME 9.5 fL (7.4-10.4); MONO % 10.7 %; NEUT % 78.6 %; PLATELET COUNT 205 K/uL (130-400); RED BLOOD COUNT 2.93 M/uL (4.7-6.1); WHITE BLOOD COUNT 6.71 K/uL (4.8-10.8)
[2017-01-22 06:55] LABS: BUN/CREATININE RATIO 13.2 (10-20); CALCIUM 8.4 mg/dl (8.5-10.1); CREATININE 1.4 mg/dl (0.60-1.40); MAGNESIUM 1.8 mg/dl (1.8-2.4); POTASSIUM 4.8 mmol/L (3.5-5.1)
[2017-01-22 07:08] VITALS: BP 166/96; PULSE 88; TEMP 36.6; O2SAT 98
[2017-01-22 07:23] LABS: COMPLETE YES
[2017-01-22] MEDS: AMLODIPINE BESYLATE 5 MG TAB PO SCH (07:30)
[2017-01-22] MEDS: METOPROLOL TARTRATE 25 MG TAB PO SCH ×2 (07:31→21:39)
--- NOTE | 2017-01-22 08:07 | Progress Note ---
Progress Note Date of Service Jan 22, 2017. Progress Note Patient in sitting up in bed appears quite comfortable. States he has some back pain but denies any headaches. On exam dressings in place and dry. He appears quite comfortable. Assessment status post repair of CSF leak. Plan at this time we will undergo a light activity as tolerated. Hopefully be able to return home soon.
--- NOTE | 2017-01-22 08:55 | Anesthesiology Progress Note ---
Anesthesia Post Op Note Date & Time Jan 22, 2017 at 08:54 Vital Signs Pain Intensity: 7.0 Vital Signs Past 12 Hours Date Time Temp Pulse Resp B/P (MAP) Pulse Ox O2 Delivery O2 Flow Rate FiO2 01/22/17 07:35 Room Air 01/22/17 07:08 36.6 88 18 166/96 (119) 98 Room Air 01/22/17 04:05 36.5 85 18 147/84 (105) 98 Room Air 01/21/17 23:42 36.4 79 16 152/93 95 01/21/17 23:41 Room Air 01/21/17 22:45 36.5 76 17 137/82 98 2.0 01/21/17 22:45 36.5 76 17 137/82 (100) 98 Nasal Cannula 2.0 01/21/17 22:15 36.4 78 16 144/84 97 2.0 01/21/17 21:45 36.7 85 17 123/73 95 2.0 01/21/17 21:27 36.6 95 18 151/86 95 Notes Mental Status: alert / awake / arousable, participated in evaluation Pt Amnestic to Procedure: Yes Nausea / Vomiting: adequately controlled Pain: adequately controlled Airway Patency, RR, SpO2: stable & adequate BP & HR: stable & adequate Hydration State: stable & adequate Anesthetic Complications: no major complications apparent
--- NOTE | 2017-01-22 09:07 | Pain Management Progress Note ---
Pain Management Progress Note Date of Service Jan 22, 2017. Gabriele Aguilar reports to me today that he had had difficulty sleeping last night as he slept all afternoon yesterday. He reports being tired this morning. He denies any drainage from his lumbar wound since the time of his operative procedure. He reports fair pain control around 6 out of 10 and feels that his pain control with intrathecal pump is superior to that of prior to his pump with transdermal and oral narcotics. He utilized 5 doses of IV hydromorphone over the last 24 hours. He denies any other overnight complaints. He denies any change in bowel or bladder continence, motor weakness, foot drop, falls. He continues to note difficulty with vomiting and has plans to return [facility] to have his gastric stimulator reprogrammed. Objective Vital Signs: Last Vital Signs Documentation Date Time Temp Pulse Resp B/P (MAP) Pulse Ox O2 Delivery O2 Flow Rate FiO2 01/22/17 07:35 Room Air 01/22/17 07:08 36.6 88 18 166/96 (119) 98 01/21/17 22:45 2.0 Physical Exam: He is awake and alert and oriented to times place and person. He demonstrates normal and clear sensorium. He is sitting in his bed waiting for breakfast. He does not appear to be any significant pain or have a postural type headache. Inspection of his back incision demonstrates scant dried blood on the bandage. There is a moderate amount of tenderness tenderness surrounding his surgical site. There is no erythema surrounding his lumbar wound. There is no drainage , sutures are intact. His front intrathecal pump pocket incision continuous to be well healing at this time. Steri-Strips are intact He has spontaneous movement of his lower extremities and intact sensation in the lower extremities. Laboratory Laboratory Findings 01/22/17 05:32 Red Blood Count 2.93 L, Mean Corpuscular Volume 86.0, Mean Corpuscular Hemoglobin 29.0, Mean Corpuscular Hemoglobin Concent 33.7, Mean Platelet Volume 9.5, Neutrophils (%) (Auto) 78.6, Lymphocytes (%) (Auto) 10.1, Monocytes (%) ( Auto) 10.7, Eosinophils (%) (Auto) 0.3, Basophils (%) (Auto) 0.0, Neutrophils # (Auto) 5.27, Lymphocytes # (Auto) 0.68 L, Monocytes # (Auto) 0.72 H, Eosinophils # (Auto) 0.02, Basophils # (Auto) 0.00 Assessment 1. CSF leak post catheter insertion-resolved status post operative procedure 2. Neuropathic pain. 3. Opioid dependance. 4. Metastatic lung cancer 5. Gastroparesis with gastric stimulator insertion Recommendations 1. CSF leak appears to have resolved status post operative intervention yesterday. I will increase his activity today to as tolerated. He should continue to wear his abdominal binder at all times and have daily dressing changes. No greater lifting than 5 pounds at this time. Appreciate Dr. Gomez' s assistance in the care of this patient. 2. Continue oral narcotics for surgical nociceptive pain reduction 3. I increased his intrathecal pump dosing today by 5% to run hydromorphone at 0.3625mg/day. Printout is on chart. 4. I appreciate the hospitalist and infectious disease recommendations and helping care for this patient 5. Provided that there is no further drainage from his lumbar wound would plan to see him back in the office in 10-14 days for suture removal.
[2017-01-22] MEDS: SUCRALFATE 1 GM/10 ML UDC PO SCH ×4 (09:09→21:36)
[2017-01-22] MEDS: VENLAFAXINE HCL XR 37.5 MG CAPXR PO SCH (09:10)
[2017-01-22] MEDS: LEVETIRACETAM 250 MG TAB PO SCH ×2 (09:11→21:37)
[2017-01-22] MEDS: LEVOFLOXACIN 750 MG TAB PO SCH (09:11)
[2017-01-22] MEDS: MAGNESIUM CHLORIDE 64MG DELAYED REL TAB PO SCH ×2 (09:12→21:40)
[2017-01-22] MEDS: GABAPENTIN 600 MG TAB PO SCH ×3 (09:12→21:39)
[2017-01-22] MEDS: PANTOprazole SOD 40 MG TAB PO SCH ×2 (09:12→21:40)
[2017-01-22] MEDS: MULTIVITAMIN TAB PO SCH (09:12)
[2017-01-22] MEDS: INSULIN GLARGINE SOLOSTAR 100 UNITS/ML 3 ML PEN SC SCH ×2 (09:20→21:43)
[2017-01-22] MEDS: INSULIN ASPART 100 UNITS/ML 3 ML PEN SC SCH ×4 (09:22→21:00)
[2017-01-22 10:46] VITALS: BP 145/80; PULSE 82; TEMP 36.5; O2SAT 94
--- NOTE | 2017-01-22 11:19 | Pharmacy Progress Note ---
Pharmacy Abx Dose Progress Nt Date of Service Jan 22, 2017. Pharmacy Dosing Scope The patient is currently receiving the following antimicrobial agents per Pharmacy consult: * Vancomycin 1000 mg IV every 14 hours Objective Height (Feet): 5 Height (Inches): 8.00 Weight (Kilograms): 78.200 Vital Signs (Past 12Hrs) Vital Signs Past 12 Hours Date Time Temp Pulse Resp B/P (MAP) Pulse Ox O2 Delivery O2 Flow Rate FiO2 01/22/17 10:46 36.5 82 19 145/80 (101) 94 Room Air 01/22/17 07:35 Room Air 01/22/17 07:08 36.6 88 18 166/96 (119) 98 Room Air 01/22/17 04:05 36.5 85 18 147/84 (105) 98 Room Air 01/21/17 23:42 36.4 79 16 152/93 95 01/21/17 23:41 Room Air Lab Results (24Hrs) Laboratory Tests (24 Hours) Test 01/22/17 05:32 White Blood Count 6.71 K/uL (4.8-10.8) Red Blood Count 2.93 M/uL (4.7-6.1) L Hemoglobin 8.5 g/dL (14.0-18.0) L Hematocrit 25.2 % (42-52) L Mean Corpuscular Volume 86.0 fL (80-100) Mean Corpuscular Hemoglobin 29.0 pg (25-34) Mean Corpuscular Hemoglobin Concent 33.7 g/dl (32-36) Platelet Count 205 K/uL (130-400) Mean Platelet Volume 9.5 fL (7.4-10.4) Neutrophils (%) (Auto) 78.6 % Lymphocytes (%) (Auto) 10.1 % Monocytes (%) (Auto) 10.7 % Eosinophils (%) (Auto) 0.3 % Basophils (%) (Auto) 0.0 % Neutrophils # (Auto) 5.27 K/uL (1.4-6.5) Lymphocytes # (Auto) 0.68 K/uL (1.2-3.4) L Monocytes # (Auto) 0.72 K/uL (0.11-0.59) H Eosinophils # (Auto) 0.02 K/uL (0-0.5) Basophils # (Auto) 0.00 K/uL (0-0.2) Item Value Date Time Vancomycin Level Trough 17.5 mcg/ml 01/22/17 0532 Micro Results Date/Time Source Procedure Growth Status 01/19/17 14:44 Blood Blood Culture - Preliminary NO GROWTH TO DATE. Resulted 01/19/17 14:36 Blood Blood Culture - Preliminary NO GROWTH TO DATE. Resulted 01/14/17 09:29 Blood Blood Culture - Final NO GROWTH Complete 01/14/17 09:11 Blood Blood Culture - Final NO GROWTH Complete 01/19/17 16:45 Nasal MRSA DNA Surveillance Screen - Final Specimen Negative for MRSA by DNA Probe Complete 01/20/17 06:00 Urine , Clean Catch Urine Culture - Final NO GROWTH - LESS THAN 1,000 COLONIES/ML Complete 01/21/17 00:00 Drainage-Deep Lumbar Gram Stain - Final Resulted 01/21/17 00:00 Drainage-Deep Lumbar Bacterial Culture Pending Resulted 01/14/17 14:00 Drainage-Deep Back Gram Stain - Final Complete 01/14/17 14:00 Bacterial Culture - Final Staphylococcus Aureus Complete 01/14/17 06:00 Incision Site Abdomin, Right Lower Quadrant Gram Stain - Final Complete 01/14/17 06:00 Wound Culture - Final Acinetobacter Baumannii/Haemol Staphylococcus Aureus Complete Risk Factors for Resistance * Hospitalization for 48 hours or more within the past 90 days * Current hospitalization > 5 days * Antimicrobial use within the last 90 days (numerous- vancomycin, Zosyn, cefepime) Assessment & Plan Assessment 51 year old male receiving IV Vancomycin, IV Cefepime and oral Levofloxacin for treatment of possible sepsis/pneumonia Day # 4 of antimicrobial therapy Renal function appears stable and patient remains afebrile Plan Vancomycin IV * Trough level of 17.5 mcg/mL is therapeutic. * Continue dose of 1000 mg (12.8 mg/kg) IV every 14 hours * Goal trough level for pulmonary infection: 15 to 20 mcg/mL * Will defer repeat Vancomycin levels to ~48-72 hours depending on length of therapy and any noted change in renal function. * Less than traditional dose selected due to likelihood of drug accumulation based on previous courses of IV Vancomycin received at [facility]. Pharmacy will continue to follow and will adjust dose/frequency as necessary. Thank you.
[2017-01-22] MEDS: HYDROmorphone HCL 2 MG TAB PO PRN ×2 (12:19→21:44)
[2017-01-22] MEDS: CEFEPIME IV 2,000 MG in DEXTROSE 5% 100ML 100 ML IV SCH (13:44)
[2017-01-22 15:32] VITALS: BP 144/88; PULSE 91; TEMP 36.9; O2SAT 98
--- NOTE | 2017-01-22 16:29 | Progress Note ---
Medicine Progress Note Date & Time of Visit: Jan 22, 2017 at 16:12. Subjective patient seen sitting up at the edge of the bed, not in distress states he feels tired today still has diffuse pain, relieved by PRN analgesics reports hemoptysis >5 times a day with coughing spells, denies dyspnea, chest pain also reports vomiting previously ingested food today, but no abdominal, (+) BMs daily no other symptoms Objective Last 8 Hrs Date Time Temp Pulse Resp B/P (MAP) Pulse Ox O2 Delivery O2 Flow Rate FiO2 01/22/17 15:32 36.9 91 18 144/88 (106) 98 Room Air 01/22/17 10:46 36.5 82 19 145/80 (101) 94 Room Air Physical Exam: General- oriented x 3, not in distress, speaks in sentences with no effort Eyes- EOMI, anicteric ENT- oropharynx clear Neck- supple, no JVD, no adenopathy, no thyromegaly Lungs- (+) rhonchi bilateral bases Heart- regular rhythm; no murmur, normal rate Abdomen- normal bowel sounds, soft, nontender Extremities- grade 1 lower leg edema, mild tenderness but no erythema/warmth/ swelling peripheral pulses intact Back- dressing in place over surgical site: clean, no discharge noted Neuro- alert, oriented x 3; no gross focal deficits Skin- warm & dry Laboratory Results: Last 24 Hours Test 01/21/17 17:08 01/21/17 20:35 01/21/17 23:46 01/22/17 05:32 Bedside Glucose 224 mg/dl 273 mg/dl 218 mg/dl White Blood Count 6.71 K/uL Red Blood Count 2.93 M/uL Hemoglobin 8.5 g/dL Hematocrit 25.2 % Mean Corpuscular Volume 86.0 fL Mean Corpuscular Hemoglobin 29.0 pg Mean Corpuscular Hemoglobin Concent 33.7 g/dl Platelet Count 205 K/uL Mean Platelet Volume 9.5 fL Neutrophils (%) (Auto) 78.6 % Lymphocytes (%) (Auto) 10.1 % Monocytes (%) (Auto) 10.7 % Eosinophils (%) (Auto) 0.3 % Basophils (%) (Auto) 0.0 % Neutrophils # (Auto) 5.27 K/uL Lymphocytes # (Auto) 0.68 K/uL Monocytes # (Auto) 0.72 K/uL Eosinophils # (Auto) 0.02 K/uL Basophils # (Auto) 0.00 K/uL RDW Standard Deviation 43.4 fL RDW Coefficient of Variation 13.8 % Immature Granulocyte % (Auto) 0.3 % Immature Granulocyte # (Auto) 0.02 K/uL Red Blood Cell Morphology Unremarkable Sodium Level 137 mmol/L Potassium Level 4.8 mmol/L Chloride Level 104 mmol/L Carbon Dioxide Level 28 mmol/L Anion Gap 5.0 mmol/L Blood Urea Nitrogen 18 mg/dl Creatinine 1.40 mg/dl Est Creatinine Clear Calc Drug Dose 60.4 ml/min Estimated GFR () 66.9 Estimated GFR (Non- 57.8 BUN/Creatinine Ratio 13.2 Random Glucose 236 mg/dl Calcium Level 8.4 mg/dl Magnesium Level 1.8 mg/dl Vancomycin Level Trough 17.5 mcg/ml Test 01/22/17 12:08 Bedside Glucose 140 mg/dl Assessment & Plan Intrathecal pump leakage, MSSA and Acinetobacter Infection s/p I and D by pain management on 01/14/17 s/p repair 01/21/17 s/p picc line -- afebrile -- ID consulted currently on Vanco, Cefepime, Levaquin (also to cover Pneumonia) will discuss with ID re: antibiotic course Pneumonia, L Lower Lobe with Parapneumonic Effusion -- repeat blood and urine culture: negative repeat Lumbar spine Drainage: gram positive cocci - on antibiotics per # 1, ID consulted Hemoptysis -- in the setting of pneumonia, effusion, lung CA -- will re- consult Pulmonary Vomiting -- known to have gastroparesis, s/p gastric pacemaker -- increased vomiting today from underlying infections? -- PRN antiemetics if worsening, will re-consult GI Bilateral Lower Leg Edema -- check Leg US to r/o DVT Ambulatory dysfunction: -- pt/ot Metastatic lung cancer. - The patient is currently no longer on chemo and is going to see Dr. Amanda next week for further plan of care.consulted and await inputs DM 2 -- currently on Lantus 15units bid and iss History of gastroparesis and on gastric pacemaker. CAT scan showed esophagitis. On PPI Consulted GI. s/p egd has reflux oesophagitis. bleeding scan was done which was unremarkable Gi recommends ppi bid and Carafate. Anemia -- s/p 2 units PRBC -- Hg stable at 8.5 History of hypertension. -- Continue amlodipine and Lopressor History of epilepsy. Continue Keppra. Currently stable. History of neurogenic bladder. Deep venous thrombosis prophylaxis, SCDs for now. DISPOSITION: Monitor in medical floor. pt/ot social service for d/c planning Current Inpatient Medications: Current Inpatient Medications Medications (Trade) Dose Ordered Sig/Cal Route Start Time Stop Time Status Last Admin Dose Admin Acetaminophen (Tylenol Tab) 650 mg Q4H PRN PO 01/14/17 09:15 02/13/17 09:14 01/19/17 08:26 650 MG Al Hydrox/Mg Hydrox/Simethicone (Maalox Max Susp) 15 ml Q4H PRN PO 01/14/17 09:15 02/13/17 09:14 Magnesium Hydroxide (Milk Of Magnesia Susp) 30 ml Q6H PRN PO 01/14/17 09:15 02/13/17 09:14 Ondansetron HCl (Zofran Inj) 4 mg Q6H PRN IV 01/14/17 09:15 02/13/17 09:14 01/22/17 07:29 4 MG Epinephrine (Epipen) 0.3 mg UD PRN IM 01/14/17 09:15 02/13/17 09:14 Folic Acid (Folvite Tab) 1 mg QAM PO 01/15/17 09:00 02/14/17 08:59 01/22/17 09:10 1 MG Levetiracetam (Keppra Tab) 750 mg BID PO 01/14/17 21:00 02/13/17 20:59 01/22/17 09:11 750 MG Magnesium Chloride (Slow-Mag Tab) 64 mg BID PO 01/14/17 21:00 02/13/17 20:59 01/22/17 09:12 64 MG Metoclopramide HCl (Reglan Tab) 10 mg ACHS PRN PO 01/14/17 09:15 02/13/17 09:14 01/21/17 22:02 10 MG Metoprolol Tartrate (Lopressor Tab) 25 mg BID PO 01/14/17 21:00 02/13/17 20:59 01/22/17 07:31 25 MG Promethazine HCl (Phenergan Supp) 25 mg Q4H PRN [place] 01/14/17 09:15 02/13/17 09:14 Venlafaxine HCl (effeXOR EXTENDED REL CAP) 37.5 mg QAM PO 01/15/17 09:00 02/14/17 08:59 01/22/17 09:10 37.5 MG Multivitamins (Multivitamin Tab) 1 tab QAM PO 01/15/17 09:00 02/14/17 08:59 01/22/17 09:12 1 TAB Hydromorphone HCl (Dilaudid Inj) 1 mg Q3HWA PRN IV 01/14/17 09:30 01/28/17 09:29 01/22/17 13:38 1 MG Albuterol (Ventolin Hfa Inhaler) 2 puffs Q6H PRN INH 01/14/17 09:30 02/13/17 09:29 Amlodipine Besylate (Norvasc Tab) 5 mg QAM PO 01/15/17 09:00 02/14/17 08:59 01/22/17 07:30 5 MG Gabapentin (Neurontin Tab) 600 mg TID PO 01/14/17 14:00 02/13/17 13:59 01/22/17 13:44 600 MG Glucose (Glucose 40% Gel) 15-30 GRAMS 15 GRAMS... UD PRN PO 01/14/17 10:00 02/13/17 09:59 Glucose (Glucose Chew Tab) 4-8 Tablets 4 Tabl... UD PRN PO 01/14/17 10:00 02/13/17 09:59 Dextrose (Dextrose 50% 50ML Syringe) 25-50ML OF 50% DW IV FOR... UD PRN IV 01/14/17 10:00 02/13/17 09:59 Glucagon (Glucagon Inj) 1 mg UD PRN SQ 01/14/17 10:00 02/13/17 09:59 Hydromorphone HCl (Dilaudid Tab) 2 mg Q4H PRN PO 01/15/17 09:45 01/29/17 09:44 01/22/17 12:19 2 MG Lorazepam (Ativan Tab) 1 mg TID PRN PO 01/15/17 17:30 02/14/17 17:29 01/19/17 07:36 1 MG Sucralfate (Carafate Susp) 1 gm QID PO 01/16/17 13:00 02/15/17 12:59 01/22/17 12:20 1 GM Daptomycin 500 mg/ Sodium Chloride 60 ml @ 100 mls/hr Q24H IV 01/17/17 14:00 02/28/17 13:59 Future Hold 01/19/17 14:08 100 MLS/HR Hydralazine HCl (HydrALAZINE INJ) 5 mg Q6 PRN IV. 01/17/17 15:30 02/16/17 15:29 01/21/17 19:26 5 MG Heparin Sodium (Porcine) (Heparin 10 Unit/ ml 5 ml Flush) 5 ml PRN PRN FLUSH 01/17/17 18:00 02/16/17 17:59 01/21/17 08:04 5 ML Sodium Chloride ([place] Nasal [place]) 1 sprays PRN PRN NA 01/18/17 06:30 02/17/17 06:29 Pantoprazole Sodium (Protonix Tab) 40 mg BID PO 01/18/17 21:00 02/17/17 20:59 01/22/17 09:12 40 MG Cefepime HCl 2000 mg/Dextrose 112.5 ml @ 200 mls/hr DAILY@1400 IV 01/19/17 14:15 01/29/17 13:59 01/22/17 13:44 200 MLS/HR Levofloxacin (Levaquin Tab) 750 mg DAILY@0900 PO 01/19/17 15:00 01/26/17 14:59 01/22/17 09:11 750 MG Cefepime HCl (Consult) 1 ea UD PRN N/A 01/19/17 14:30 02/18/17 14:29 Levofloxacin (Consult) 1 ea UD PRN N/A 01/19/17 14:45 02/18/17 14:44 Vancomycin HCl 1000 mg/Sodium Chloride 270 ml @ 125 mls/hr Q14H IV 01/20/17 12:00 01/26/17 23:59 01/22/17 05:51 125 MLS/HR Vancomycin HCl (Consult) 1 ea UD PRN N/A 01/19/17 17:15 02/18/17 17:14 Insulin Glargine (Lantus Solostar Pen) 15 units BID SC 01/20/17 09:00 02/13/17 20:59 01/22/17 09:20 15 UNITS Sodium Chloride 1,000 ml @ 75 mls/hr [id number] IV 01/20/17 11:45 02/19/17 11:44 01/22/17 03:58 75 MLS/HR Insulin Aspart (novoLOG ASPART) SLIDING SCALE G... ACHS SC 01/21/17 17:30 02/20/17 05:59 01/22/17 09:22 16 UNITS
--- NOTE | 2017-01-22 18:13 | DIAGNOSTIC IMAGING REPORT ---
VENOUS DOPPLER LW EXT BILAT HISTORY: Pain. Edema. r/o dv COMPARISON STUDY: None. FINDINGS: There is normal compressibility, flow, and augmentation within the bilateral lower extremity deep venous systems. IMPRESSION: No DVT within the right or left lower extremity. The above report was generated using voice recognition software. It may contain grammatical, syntax or spelling errors. Electronically signed by: Fuad Betancourt M.D. 01/22/2017 6:12 PM Dictated Date/Time: 01/22/2017 6:11 PM
[2017-01-22 21:38] VITALS: BP 118/68; PULSE 93
[2017-01-22] MEDS: LORAZEPAM 1 MG TAB PO PRN (21:43)
[2017-01-22 23:03] VITALS: BP 160/89; PULSE 96; TEMP 36.9; O2SAT 95
[2017-01-23] MEDS: HYDROmorphone INJ 1 MG/ML SYR IV PRN ×6 (00:03→21:26)
--- NOTE | 2017-01-23 00:27 | ONCOLOGY CONSULTATION ---
DATE OF CONSULTATION: 01/22/2017 CONSULT REQUESTED BY: Aguila Saenz MD REASON FOR CONSULTATION: Patient's request, missed appointment. HISTORY OF PRESENT ILLNESS: Mr. Hamilton is a 51-year-old gentleman who was treated with postoperative chemoradiation after diagnosis of his previous non-small cell lung cancer. He tolerated his chemoradiation very poorly and was unable to complete his projected course of chemotherapy due to toxicity. He is now admitted due to complications from an indwelling pain pump for treatment of his chronic intractable pain. He was due to see me last week as an outpatient but was hospitalized. I met with him today in his hospital room. He was preparing to eat lunch. He complained of having pain all-over and having persistent nausea and vomiting. Those are very constant and unfortunate complaints. Brief examination showed negative neck and supraclavicular adenopathy. Right lung was clear to auscultation and left lung disclosed rhonchi at the base. IMPRESSION: Non-small cell lung cancer. I reviewed his recent CT scan of the chest which showed no obvious recurrence. A small 5 mm nodule was evident in the left lower lobe of uncertain significance. PLAN: My plan is to repeat a CT scan of the chest in 3 months' time. As I will be retiring the end of April, I will make arrangements for him to follow up with one of my partners. AMILCAR
[2017-01-23] MEDS: ONDANSETRON INJ 2 MG/ML 2 ML VIAL IV PRN ×3 (05:25→21:27)
[2017-01-23 05:36] LABS: BASO % 0.3 %; BASO ABS # 0.02 K/uL (0-0.2); EOS % 7.2 %; HEMATOCRIT 24.7 % (42-52); IG% 0.6 %; LYMPH % 22.6 %; LYMPH ABS # 1.44 K/uL (1.2-3.4); MEAN CELL VOLUME 86.4 fL (80-100); MEAN CORPUSCULAR HEMOGLOBIN 29.4 pg (25-34); MEAN PLATELET VOLUME 9.1 fL (7.4-10.4); MONO % 11.8 %; NEUT % 57.5 %; PLATELET COUNT 240 K/uL (130-400); RED BLOOD COUNT 2.86 M/uL (4.7-6.1); WHITE BLOOD COUNT 6.37 K/uL (4.8-10.8)
[2017-01-23 06:04] LABS: BUN/CREATININE RATIO 13.6 (10-20); CALCIUM 8.2 mg/dl (8.5-10.1); CREATININE 1.4 mg/dl (0.60-1.40); MAGNESIUM 1.5 mg/dl (1.8-2.4); POTASSIUM 4.6 mmol/L (3.5-5.1)
[2017-01-23 06:09] LABS: COMPLETE YES
[2017-01-23 07:07] VITALS: BP 180/95; PULSE 89; TEMP 37; O2SAT 96
[2017-01-23] MEDS: SUCRALFATE 1 GM/10 ML UDC PO SCH ×4 (08:55→21:25)
[2017-01-23] MEDS: LEVETIRACETAM 250 MG TAB PO SCH ×2 (08:56→21:26)
[2017-01-23] MEDS: VENLAFAXINE HCL XR 37.5 MG CAPXR PO SCH (08:56)
[2017-01-23] MEDS: MULTIVITAMIN TAB PO SCH (08:57)
[2017-01-23] MEDS: METOPROLOL TARTRATE 25 MG TAB PO SCH ×2 (08:57→21:28)
[2017-01-23] MEDS: LEVOFLOXACIN 750 MG TAB PO SCH (08:57)
[2017-01-23] MEDS: AMLODIPINE BESYLATE 5 MG TAB PO SCH (08:58)
[2017-01-23] MEDS: PANTOprazole SOD 40 MG TAB PO SCH ×2 (08:58→21:26)
[2017-01-23] MEDS: GABAPENTIN 600 MG TAB PO SCH ×3 (08:58→21:26)
[2017-01-23] MEDS: MAGNESIUM CHLORIDE 64MG DELAYED REL TAB PO SCH ×2 (08:58→21:26)
[2017-01-23] MEDS: INSULIN GLARGINE SOLOSTAR 100 UNITS/ML 3 ML PEN SC SCH ×2 (09:23→21:34)
[2017-01-23] MEDS: INSULIN ASPART 100 UNITS/ML 3 ML PEN SC SCH ×4 (09:25→21:00)
[2017-01-23] MEDS: VANCOMYCIN INJ 1,000 MG in SODIUM CHLORIDE 0.9% 250ML 250 ML IV SCH (09:35)
--- NOTE | 2017-01-23 10:47 | Pain Management Progress Note ---
Pain Management Progress Note Date of Service Jan 23, 2017. Subjective Nikhil reports incisional pain. Continues to have mild non-positional related head ache. Has used PO and IV hydromorphone. Has not felt drainage of CSF. Continues to have nausea. Objective Vital Signs: Last Vital Signs Documentation Date Time Temp Pulse Resp B/P (MAP) Pulse Ox O2 Delivery O2 Flow Rate FiO2 01/23/17 08:45 Room Air 01/23/17 07:07 37.0 89 17 180/95 (123) 96 01/21/17 22:45 2.0 Physical Exam: A/O. Moderate pain. VS noted. Dressing removed--demonstrates scant non purulent drainage. Wound without redness or erythema. Tender. Moderate pedal edema. Decreased breath sounds at the bases. Laboratory Laboratory Findings 01/23/17 05:10 Red Blood Count 2.86 L, Mean Corpuscular Volume 86.4, Mean Corpuscular Hemoglobin 29.4, Mean Corpuscular Hemoglobin Concent 34.0, Mean Platelet Volume 9.1, Neutrophils (%) (Auto) 57.5, Lymphocytes (%) (Auto) 22.6, Monocytes (%) ( Auto) 11.8, Eosinophils (%) (Auto) 7.2, Basophils (%) (Auto) 0.3, Neutrophils # (Auto) 3.66, Lymphocytes # (Auto) 1.44, Monocytes # (Auto) 0.75 H, Eosinophils # (Auto) 0.46, Basophils # (Auto) 0.02 RUN DATE: 01/23/17 [facility] PAGE 1 RUN TIME: 808 Specimen Inquiry PATIENT: NIKHIL MARTINS LOC: [place] U # : [id number] AGE/SX: 51/M ROOM: [facility] REG : 01/14/[address]: Aguila Saenz MD : 1965 BED: 2 DIS : STATUS: ADM IN TLOC: SPEC #: [id number] VADIM: 01/21/17-UNK STATUS: RES REQ #: [id number] RECD: 01/21/17-[address]: Aguila Saenz MD SOURCE: DRAIN-DEEP ENTR: 01/21/17-[address]: Mauricio Gomez, D.O. SPDESC: Ike Holman MD, Marten B., DO Foley, Kimberly ., M.D. Gabinskiy, Boris M.D. Sumner, Sabrina M. , Upendra. Levy M.D. Wolfe, David W., M.D. ORDERED: AER/BAY CULTSMR Procedure Result Verified Site GRAM STAIN Final 01/22/17-740 RESULT FEW WBCs SEEN NO ORGANISMS SEEN OR AER/BAY CULT Preliminary 01/23/17-808 Organism 1 STAPHYLOCOCCUS AUREUS QUANITY RARE SENS SENSITIVITY TO FOLLOW END OF REPORT RUN DATE: 01/22/17 [facility] PAGE 1 RUN TIME: 1052 Specimen Inquiry PATIENT: NIKHIL MARTINS LOC: W U # : [id number] AGE/SX: 51/M ROOM: [facility] REG : 01/14/[address]: Aguila Saenz MD : 1965 BED: 2 DIS : STATUS: ADM IN TLOC: SPEC #: [id number] VADIM: 01/20/17 STATUS: COMP REQ #: [id number] RECD: 01/20/17 [facility] DR: Aguila Saenz MD SOURCE: UR, CC ENTR: 01/20/[address] [facility] [address]: Ike Roca MD SPDESC: Marli Chaves, Bran Ruth M.D., Sabrina M. , Upendra. Levy M.D. Wolfe, David W., M.D. ORDERED: CULTURE JORGE COMMENTS: Has Specimen Been Obtained/Collected? Y Procedure Result Verified Site URINE CULTURE Final 01/22/17-1051 NO GROWTH - LESS THAN 1,000 COLONIES/ML END OF REPORT Assessment 1. CSF leak post intrathecal catheter insertion for pain control. S/P revision and dural patch placement--Improving. 2. Neuropathic pain. 3. Opioid dependance. 4. Metastatic lung cancer 5. Gastroparesis with gastric stimulator insertion Recommendations 1. Continue observation. 2. Increase intrathecal dose to 0.39 mg/day hydromorphone. Intrathecal pump interrogated and reprogramed.
[2017-01-23 10:55] VITALS: BP 159/88; PULSE 92; O2SAT 98
[2017-01-23] MEDS: CEFEPIME IV 2,000 MG in DEXTROSE 5% 100ML 100 ML IV SCH (12:42)
--- NOTE | 2017-01-23 13:08 | Progress Note ---
Medicine Progress Note Date & Time of Visit: Jan 23, 2017 at 13:08. Subjective patient seen resting in bed, comfortable states pain is improved today less hemoptysis and cough today, no dyspnea nausea also improved no other symptoms Objective Last 8 Hrs Date Time Temp Pulse Resp B/P (MAP) Pulse Ox O2 Delivery O2 Flow Rate FiO2 01/23/17 10:55 92 20 159/88 (111) 98 Room Air 01/23/17 08:45 Room Air 01/23/17 07:07 37.0 89 17 180/95 (123) 96 Room Air Physical Exam: General- oriented x 3, not in distress, speaks in sentences with no effort Eyes- anicteric Neck- supple, no JVD Lungs- (+) rhonchi bilateral bases Heart- regular rhythm; no murmur, normal rate Abdomen- normal bowel sounds, soft, nontender Extremities- grade 1 lower leg edema, mild tenderness but no erythema/warmth/ swelling peripheral pulses intact Back- dressing in place over surgical site: clean, no discharge noted Neuro- alert, oriented x 3; no gross focal deficits Skin- warm & dry Laboratory Results: Last 24 Hours Test 01/22/17 17:03 01/22/17 20:58 01/23/17 05:10 01/23/17 08:14 Bedside Glucose 217 mg/dl 123 mg/dl 164 mg/dl White Blood Count 6.37 K/uL Red Blood Count 2.86 M/uL Hemoglobin 8.4 g/dL Hematocrit 24.7 % Mean Corpuscular Volume 86.4 fL Mean Corpuscular Hemoglobin 29.4 pg Mean Corpuscular Hemoglobin Concent 34.0 g/dl Platelet Count 240 K/uL Mean Platelet Volume 9.1 fL Neutrophils (%) (Auto) 57.5 % Lymphocytes (%) (Auto) 22.6 % Monocytes (%) (Auto) 11.8 % Eosinophils (%) (Auto) 7.2 % Basophils (%) (Auto) 0.3 % Neutrophils # (Auto) 3.66 K/uL Lymphocytes # (Auto) 1.44 K/uL Monocytes # (Auto) 0.75 K/uL Eosinophils # (Auto) 0.46 K/uL Basophils # (Auto) 0.02 K/uL RDW Standard Deviation 45.5 fL RDW Coefficient of Variation 14.2 % Immature Granulocyte % (Auto) 0.6 % Immature Granulocyte # (Auto) 0.04 K/uL Red Blood Cell Morphology Unremarkable Sodium Level 142 mmol/L Potassium Level 4.6 mmol/L Chloride Level 109 mmol/L Carbon Dioxide Level 30 mmol/L Anion Gap 3.0 mmol/L Blood Urea Nitrogen 19 mg/dl Creatinine 1.40 mg/dl Est Creatinine Clear Calc Drug Dose 60.4 ml/min Estimated GFR () 66.9 Estimated GFR (Non- 57.8 BUN/Creatinine Ratio 13.6 Random Glucose 140 mg/dl Calcium Level 8.2 mg/dl Magnesium Level 1.5 mg/dl Assessment & Plan Intrathecal pump leakage, MSSA and Acinetobacter Infection s/p I and D by pain management on 01/14/17 s/p repair 01/21/17 s/p picc line -- afebrile -- ID consulted currently on Vanco, Cefepime, Levaquin (also to cover Pneumonia) will discuss with ID re: antibiotic course Pneumonia, L Lower Lobe with Parapneumonic Effusion -- repeat blood and urine culture: negative repeat Lumbar spine Drainage: gram positive cocci - on antibiotics per # 1, ID consulted - Thoracentesis recommended by Pulm to r/o Empyema Hemoptysis -- in the setting of pneumonia, effusion, lung CA --Pulm consulted, appreciate the input Vomiting -- known to have gastroparesis, s/p gastric pacemaker -- improved from underlying infections? -- PRN antiemetics if worsening, will re-consult GI Bilateral Lower Leg Edema -- Leg US to r/o DVT: negative Ambulatory dysfunction: -- pt/ot Metastatic lung cancer. - The patient is currently no longer on chemo and is going to see Dr. Amanda next week for further plan of care.consulted and await inputs DM 2 -- currently on Lantus 15units bid and iss History of gastroparesis and on gastric pacemaker. CAT scan showed esophagitis. On PPI Consulted GI. s/p egd has reflux oesophagitis. bleeding scan was done which was unremarkable Gi recommends ppi bid and Carafate. Anemia -- s/p 2 units PRBC -- Hg stable at 8.5 History of hypertension. -- Continue amlodipine and Lopressor History of epilepsy. Continue Keppra. Currently stable. History of neurogenic bladder. Deep venous thrombosis prophylaxis, SCDs for now. DISPOSITION: Monitor in medical floor. pt/ot social service for d/c planning Current Inpatient Medications: Current Inpatient Medications Medications (Trade) Dose Ordered Sig/Cal Route Start Time Stop Time Status Last Admin Dose Admin Acetaminophen (Tylenol Tab) 650 mg Q4H PRN PO 01/14/17 09:15 02/13/17 09:14 01/19/17 08:26 650 MG Al Hydrox/Mg Hydrox/Simethicone (Maalox Max Susp) 15 ml Q4H PRN PO 01/14/17 09:15 02/13/17 09:14 Magnesium Hydroxide (Milk Of Magnesia Susp) 30 ml Q6H PRN PO 01/14/17 09:15 02/13/17 09:14 Ondansetron HCl (Zofran Inj) 4 mg Q6H PRN IV 01/14/17 09:15 02/13/17 09:14 01/23/17 05:25 4 MG Epinephrine (Epipen) 0.3 mg UD PRN IM 01/14/17 09:15 02/13/17 09:14 Folic Acid (Folvite Tab) 1 mg QAM PO 01/15/17 09:00 02/14/17 08:59 01/23/17 08:56 1 MG Levetiracetam (Keppra Tab) 750 mg BID PO 01/14/17 21:00 02/13/17 20:59 01/23/17 08:56 750 MG Magnesium Chloride (Slow-Mag Tab) 64 mg BID PO 01/14/17 21:00 02/13/17 20:59 01/23/17 08:58 64 MG Metoclopramide HCl (Reglan Tab) 10 mg ACHS PRN PO 01/14/17 09:15 02/13/17 09:14 01/21/17 22:02 10 MG Metoprolol Tartrate (Lopressor Tab) 25 mg BID PO 01/14/17 21:00 02/13/17 20:59 01/23/17 08:57 25 MG Promethazine HCl (Phenergan Supp) 25 mg Q4H PRN GA 01/14/17 09:15 02/13/17 09:14 Venlafaxine HCl (effeXOR EXTENDED REL CAP) 37.5 mg QAM PO 01/15/17 09:00 02/14/17 08:59 01/23/17 08:56 37.5 MG Multivitamins (Multivitamin Tab) 1 tab QAM PO 01/15/17 09:00 02/14/17 08:59 01/23/17 08:57 1 TAB Hydromorphone HCl (Dilaudid Inj) 1 mg Q3HWA PRN IV 01/14/17 09:30 01/28/17 09:29 01/23/17 08:28 1 MG Albuterol (Ventolin Hfa Inhaler) 2 puffs Q6H PRN INH 01/14/17 09:30 02/13/17 09:29 Amlodipine Besylate (Norvasc Tab) 5 mg QAM PO 01/15/17 09:00 02/14/17 08:59 01/23/17 08:58 5 MG Gabapentin (Neurontin Tab) 600 mg TID PO 01/14/17 14:00 02/13/17 13:59 01/23/17 08:58 600 MG Glucose (Glucose 40% Gel) 15-30 GRAMS 15 GRAMS... UD PRN PO 01/14/17 10:00 02/13/17 09:59 Glucose (Glucose Chew Tab) 4-8 Tablets 4 Tabl... UD PRN PO 01/14/17 10:00 02/13/17 09:59 Dextrose (Dextrose 50% 50ML Syringe) 25-50ML OF 50% DW IV FOR... UD PRN IV 01/14/17 10:00 02/13/17 09:59 Glucagon (Glucagon Inj) 1 mg UD PRN SQ 01/14/17 10:00 02/13/17 09:59 Hydromorphone HCl (Dilaudid Tab) 2 mg Q4H PRN PO 01/15/17 09:45 01/29/17 09:44 01/22/17 21:44 2 MG Lorazepam (Ativan Tab) 1 mg TID PRN PO 01/15/17 17:30 02/14/17 17:29 01/22/17 21:43 1 MG Sucralfate (Carafate Susp) 1 gm QID PO 01/16/17 13:00 02/15/17 12:59 01/23/17 08:55 1 GM Daptomycin 500 mg/ Sodium Chloride 60 ml @ 100 mls/hr Q24H IV 01/17/17 14:00 02/28/17 13:59 Future Hold 01/19/17 14:08 100 MLS/HR Hydralazine HCl (HydrALAZINE INJ) 5 mg Q6 PRN IV. 01/17/17 15:30 02/16/17 15:29 01/21/17 19:26 5 MG Heparin Sodium (Porcine) (Heparin 10 Unit/ ml 5 ml Flush) 5 ml PRN PRN FLUSH 01/17/17 18:00 02/16/17 17:59 01/23/17 05:22 5 ML Sodium Chloride ([place] Nasal [place]) 1 sprays PRN PRN NA 01/18/17 06:30 02/17/17 06:29 Pantoprazole Sodium (Protonix Tab) 40 mg BID PO 01/18/17 21:00 02/17/17 20:59 01/23/17 08:58 40 MG Levofloxacin (Levaquin Tab) 750 mg DAILY@0900 PO 01/19/17 15:00 01/26/17 14:59 01/23/17 08:57 750 MG Cefepime HCl (Consult) 1 ea UD PRN N/A 01/19/17 14:30 02/18/17 14:29 Levofloxacin (Consult) 1 ea UD PRN N/A 01/19/17 14:45 02/18/17 14:44 Vancomycin HCl 1000 mg/Sodium Chloride 270 ml @ 125 mls/hr Q14H IV 01/20/17 12:00 01/26/17 23:59 01/23/17 09:35 125 MLS/HR Vancomycin HCl (Consult) 1 ea UD PRN N/A 01/19/17 17:15 02/18/17 17:14 Insulin Glargine (Lantus Solostar Pen) 15 units BID SC 01/20/17 09:00 02/13/17 20:59 01/23/17 09:23 15 UNITS Insulin Aspart (novoLOG ASPART) SLIDING SCALE G... ACHS SC 01/21/17 17:30 02/20/17 05:59 01/23/17 09:25 14 UNITS Cefepime HCl 2000 mg/Dextrose 112.5 ml @ 200 mls/hr Q12H IV 01/23/17 12:00 01/29/17 11:59 9/20/17 12:42 200 MLS/HR Magnesium Sulfate 2 gm/Prmx 100 ml @ 100 mls/hr ONE IV 01/23/17 13:00 02/22/17 12:59 UNV
[2017-01-23] MEDS: MAGNESIUM SULFATE 1GM / D5W 1 GM in PREMIXED IN D5W 100 ML IV SCH ×2 (13:48→15:11)
--- NOTE | 2017-01-23 14:58 | Pulmonology Progress Note ---
Pulmonary Progress Note Date of Service Jan 23, 2017. Attending Dr. Gomez Subjective Patient notes severe pain globally greatest in his back along with fever, chills , intermittent Reiger's. He did note a day prior to this dictation hemoptysis but it was dark red/purple in nature and thick. Objective Patient was in severe distress/discomfort during her conversation but was able to sit up in bed while Dr. Ford was able to evaluate his surgical incision. Radiology: Noncontrast CT of the chest 01/20/2017 Diffuse infiltrative process of the left lower lobe with associated pleural effusion 5mm nodule in the RB6 subsegment CT abdomen on 03/25/17: Mild pleural scarring otherwise clear pulmonary parenchyma no pleural effusion Chest x-ray 01/19/2017: 2 diffuse infiltrative process in the left lower hemithorax Chest x-ray 10/14/2016: No acute process noted Studies: WBC: 7K H/H: 01/28 PLT: 205 INR/PT/aPTT (01/14/17) 1.1/11.4/25.0 Medications: #1 vancomycin #2 levofloxacin #3 cefepime #4 fracture or #5 Dilaudid #6 Ativan #7 Keppra #8 Neurontin #9 albuterol HFA Medical Problems: Chronic pain Confusion Diabetes mellitus, type II Diabetic polyneuropathy Facial cellulitis Gastroparesis HTN (hypertension) Intractable nausea and vomiting Lung cancer Nausea and vomiting Neutropenia Epilepsy Neurogenic bladder Orthostatic hypotension Meningitis--previous intrathecal pump associated infection Surgical Problems: Colonoscopy Gastric Pacemaker esophagogastroduodenoscopy cholecystectomy tonsillectomy and adenoidectomy total knee arthroplasty S/P lobectomy of lung Intrathecal pump system placed a 25/06/2016 Previous intrathecal pump placement--complicated by infection Family History Cancer Diabetes mellitus Hypertension Social History Smoking: Previous smoker quit 2000 Alcohol Use: none Drug Use: none Marital Status: Housing Status: lives with family Occupation Status: disabled Microbiology 01/14/2017-- Wound site: Acinetobacter, MSSA 01/14/2017-- Wound site: MSSA 01/21/2017: Lumbar drain staph aureus Assessment & Plan 51-year-old gentleman with CSF leak, local incision infection as well as new onset changes in the left lobe with associated pleural effusion and 5 mm nodule: #1 lung cancer: Patient has a history of adenocarcinoma previously treated in [place] with left upper lobe resection and followed by chemotherapy cisplatin- based but per the patient had a decrease the intensity of the chemotherapy secondary to his severe reaction with nausea vomiting. He states that he was staged as stage III. Whether this is based off the primary tumor R possible mediastinal disease I do not know as the patient stated he never had mediastinal evaluation. We will require more records for this further evaluation and follow-up with the 5 mm left lower lobe nodule. #2 hemoptysis: Patient had episode of hemoptysis not actively noting hemoptysis today. This is most likely secondary to the new changes seen on the CT which are highly likely secondary to aspiration. We'll continue to monitor if he continues to have episodes of hemoptysis bronchoscopy would be warranted. #3 pleural effusion: Patient has a pleural effusion associated with diffuse parenchymal changes possibly aspiration pneumonia as well as CSF leak. This could be associated with a dural pleural fissure or possibly even an empyema. We should move forward with thoracentesis at this time for further evaluation. Data Medications: Current Inpatient Medications Medications (Trade) Dose Ordered Sig/Cal Route Start Time Stop Time Status Last Admin Dose Admin Acetaminophen (Tylenol Tab) 650 mg Q4H PRN PO 01/14/17 09:15 02/13/17 09:14 01/19/17 08:26 650 MG Al Hydrox/Mg Hydrox/Simethicone (Maalox Max Susp) 15 ml Q4H PRN PO 01/14/17 09:15 02/13/17 09:14 Magnesium Hydroxide (Milk Of Magnesia Susp) 30 ml Q6H PRN PO 01/14/17 09:15 02/13/17 09:14 Ondansetron HCl (Zofran Inj) 4 mg Q6H PRN IV 01/14/17 09:15 02/13/17 09:14 01/23/17 13:47 4 MG Epinephrine (Epipen) 0.3 mg UD PRN IM 01/14/17 09:15 02/13/17 09:14 Folic Acid (Folvite Tab) 1 mg QAM PO 01/15/17 09:00 02/14/17 08:59 01/23/17 08:56 1 MG Levetiracetam (Keppra Tab) 750 mg BID PO 01/14/17 21:00 02/13/17 20:59 01/23/17 08:56 750 MG Magnesium Chloride (Slow-Mag Tab) 64 mg BID PO 01/14/17 21:00 02/13/17 20:59 01/23/17 08:58 64 MG Metoclopramide HCl (Reglan Tab) 10 mg ACHS PRN PO 01/14/17 09:15 02/13/17 09:14 01/21/17 22:02 10 MG Metoprolol Tartrate (Lopressor Tab) 25 mg BID PO 01/14/17 21:00 02/13/17 20:59 01/23/17 08:57 25 MG Promethazine HCl (Phenergan Supp) 25 mg Q4H PRN MI 01/14/17 09:15 02/13/17 09:14 Venlafaxine HCl (effeXOR EXTENDED REL CAP) 37.5 mg QAM PO 01/15/17 09:00 02/14/17 08:59 01/23/17 08:56 37.5 MG Multivitamins (Multivitamin Tab) 1 tab QAM PO 01/15/17 09:00 02/14/17 08:59 01/23/17 08:57 1 TAB Hydromorphone HCl (Dilaudid Inj) 1 mg Q3HWA PRN IV 01/14/17 09:30 01/28/17 09:29 01/23/17 13:54 1 MG Albuterol (Ventolin Hfa Inhaler) 2 puffs Q6H PRN INH 01/14/17 09:30 02/13/17 09:29 Amlodipine Besylate (Norvasc Tab) 5 mg QAM PO 01/15/17 09:00 02/14/17 08:59 01/23/17 08:58 5 MG Gabapentin (Neurontin Tab) 600 mg TID PO 01/14/17 14:00 02/13/17 13:59 01/23/17 13:42 600 MG Glucose (Glucose 40% Gel) 15-30 GRAMS 15 GRAMS... UD PRN PO 01/14/17 10:00 02/13/17 09:59 Glucose (Glucose Chew Tab) 4-8 Tablets 4 Tabl... UD PRN PO 01/14/17 10:00 02/13/17 09:59 Dextrose (Dextrose 50% 50ML Syringe) 25-50ML OF 50% DW IV FOR... UD PRN IV 01/14/17 10:00 02/13/17 09:59 Glucagon (Glucagon Inj) 1 mg UD PRN SQ 01/14/17 10:00 02/13/17 09:59 Hydromorphone HCl (Dilaudid Tab) 2 mg Q4H PRN PO 01/15/17 09:45 01/29/17 09:44 01/22/17 21:44 2 MG Lorazepam (Ativan Tab) 1 mg TID PRN PO 01/15/17 17:30 02/14/17 17:29 01/22/17 21:43 1 MG Sucralfate (Carafate Susp) 1 gm QID PO 01/16/17 13:00 02/15/17 12:59 01/23/17 13:16 1 GM Daptomycin 500 mg/ Sodium Chloride 60 ml @ 100 mls/hr Q24H IV 01/17/17 14:00 02/28/17 13:59 Future Hold 01/19/17 14:08 100 MLS/HR Hydralazine HCl (HydrALAZINE INJ) 5 mg Q6 PRN IV. 01/17/17 15:30 02/16/17 15:29 01/21/17 19:26 5 MG Heparin Sodium (Porcine) (Heparin 10 Unit/ ml 5 ml Flush) 5 ml PRN PRN FLUSH 01/17/17 18:00 02/16/17 17:59 01/23/17 05:22 5 ML Sodium Chloride ([place] Nasal [place]) 1 sprays PRN PRN NA 01/18/17 06:30 02/17/17 06:29 Pantoprazole Sodium (Protonix Tab) 40 mg BID PO 01/18/17 21:00 02/17/17 20:59 01/23/17 08:58 40 MG Levofloxacin (Levaquin Tab) 750 mg DAILY@0900 PO 01/19/17 15:00 01/26/17 14:59 01/23/17 08:57 750 MG Cefepime HCl (Consult) 1 ea UD PRN N/A 01/19/17 14:30 02/18/17 14:29 Levofloxacin (Consult) 1 ea UD PRN N/A 01/19/17 14:45 02/18/17 14:44 Vancomycin HCl 1000 mg/Sodium Chloride 270 ml @ 125 mls/hr Q14H IV 01/20/17 12:00 01/26/17 23:59 01/23/17 09:35 125 MLS/HR Vancomycin HCl (Consult) 1 ea UD PRN N/A 01/19/17 17:15 02/18/17 17:14 Insulin Glargine (Lantus Solostar Pen) 15 units BID SC 01/20/17 09:00 02/13/17 20:59 01/23/17 09:23 15 UNITS Insulin Aspart (novoLOG ASPART) SLIDING SCALE G... ACHS SC 01/21/17 17:30 02/20/17 05:59 01/23/17 09:25 14 UNITS Cefepime HCl 2000 mg/Dextrose 112.5 ml @ 200 mls/hr Q12H IV 01/23/17 12:00 01/29/17 11:59 01/23/17 12:42 200 MLS/HR Magnesium Sulfate 1 gm/Prmx 100 ml @ 100 mls/hr Q1H IV 01/23/17 13:30 01/23/17 15:29 01/23/17 13:48 100 MLS/HR I & O: 24-Hour Column 01/24/17 08:00 Output Total 1000 ml Balance -1000 ml Vital Signs: Date Time Temp Pulse Resp B/P (MAP) Pulse Ox O2 Delivery O2 Flow Rate FiO2 01/23/17 10:55 92 20 159/88 (111) 98 Room Air 01/23/17 08:45 Room Air 01/23/17 07:07 37.0 89 17 180/95 (123) 96 Room Air 01/23/17 00:05 Room Air 01/22/17 23:03 36.9 96 14 160/89 (112) 95 Room Air 01/22/17 21:38 93 118/68 (85) 01/22/17 16:35 Room Air 01/22/17 15:32 36.9 91 18 144/88 (106) 98 Room Air Laboratory Results: Last 24 Hours Test 01/22/17 17:03 01/22/17 20:58 01/23/17 05:10 01/23/17 08:14 Bedside Glucose 217 mg/dl 123 mg/dl 164 mg/dl White Blood Count 6.37 K/uL Red Blood Count 2.86 M/uL Hemoglobin 8.4 g/dL Hematocrit 24.7 % Mean Corpuscular Volume 86.4 fL Mean Corpuscular Hemoglobin 29.4 pg Mean Corpuscular Hemoglobin Concent 34.0 g/dl Platelet Count 240 K/uL Mean Platelet Volume 9.1 fL Neutrophils (%) (Auto) 57.5 % Lymphocytes (%) (Auto) 22.6 % Monocytes (%) (Auto) 11.8 % Eosinophils (%) (Auto) 7.2 % Basophils (%) (Auto) 0.3 % Neutrophils # (Auto) 3.66 K/uL Lymphocytes # (Auto) 1.44 K/uL Monocytes # (Auto) 0.75 K/uL Eosinophils # (Auto) 0.46 K/uL Basophils # (Auto) 0.02 K/uL RDW Standard Deviation 45.5 fL RDW Coefficient of Variation 14.2 % Immature Granulocyte % (Auto) 0.6 % Immature Granulocyte # (Auto) 0.04 K/uL Red Blood Cell Morphology Unremarkable Sodium Level 142 mmol/L Potassium Level 4.6 mmol/L Chloride Level 109 mmol/L Carbon Dioxide Level 30 mmol/L Anion Gap 3.0 mmol/L Blood Urea Nitrogen 19 mg/dl Creatinine 1.40 mg/dl Est Creatinine Clear Calc Drug Dose 60.4 ml/min Estimated GFR () 66.9 Estimated GFR (Non- 57.8 BUN/Creatinine Ratio 13.6 Random Glucose 140 mg/dl Calcium Level 8.2 mg/dl Magnesium Level 1.5 mg/dl
[2017-01-23 15:20] VITALS: BP 152/87; PULSE 94; TEMP 37; O2SAT 96
[2017-01-23 21:27] VITALS: BP 148/87; PULSE 94
[2017-01-23 23:10] VITALS: BP 156/88; PULSE 93; TEMP 37.1; O2SAT 99
[2017-01-24] VITALS (7 sets, daily range): BP systolic 142–190; BP diastolic 83–108; PULSE 92–104; TEMP 36.8–37.2; O2SAT 88–95
[2017-01-24] MEDS: CEFEPIME IV 2,000 MG in DEXTROSE 5% 100ML 100 ML IV SCH ×2 (00:23→12:00)
[2017-01-24] MEDS: VANCOMYCIN INJ 1,000 MG in SODIUM CHLORIDE 0.9% 250ML 250 ML IV SCH ×2 (00:23→14:47)
[2017-01-24] MEDS: HYDROmorphone INJ 1 MG/ML SYR IV PRN ×10 (00:50→21:49)
[2017-01-24] MEDS: METOCLOPRAMIDE HCL 10 MG TAB PO PRN ×3 (01:58→17:33)
[2017-01-24 06:17] LABS: CREATININE 1.3 mg/dl (0.60-1.40)
[2017-01-24] MEDS: ONDANSETRON INJ 2 MG/ML 2 ML VIAL IV PRN ×2 (06:19→16:12)
[2017-01-24] MEDS ORDERED: INFLUENZA ADMINISTRATION CHARGE ONE (09:00)
[2017-01-24] MEDS ORDERED: INFLUENZA VIRUS QUAD VACCINE 0.5 ML SYR IM. ONE (09:00)
[2017-01-24] MEDS: SUCRALFATE 1 GM/10 ML UDC PO SCH ×4 (09:05→21:40)
[2017-01-24] MEDS: GABAPENTIN 600 MG TAB PO SCH ×3 (09:06→21:41)
[2017-01-24] MEDS: VENLAFAXINE HCL XR 37.5 MG CAPXR PO SCH (09:06)
[2017-01-24] MEDS: PANTOprazole SOD 40 MG TAB PO SCH ×2 (09:06→21:41)
[2017-01-24] MEDS: LEVOFLOXACIN 750 MG TAB PO SCH (09:09)
[2017-01-24] MEDS: MULTIVITAMIN TAB PO SCH (09:09)
[2017-01-24] MEDS: LEVETIRACETAM 250 MG TAB PO SCH ×2 (09:09→21:41)
[2017-01-24] MEDS: MAGNESIUM CHLORIDE 64MG DELAYED REL TAB PO SCH ×2 (09:09→21:42)
[2017-01-24] MEDS: AMLODIPINE BESYLATE 5 MG TAB PO SCH (09:11)
[2017-01-24] MEDS: METOPROLOL TARTRATE 25 MG TAB PO SCH ×2 (09:11→21:41)
--- NOTE | 2017-01-24 09:24 | Pain Management Progress Note ---
Pain Management Progress Note Date of Service Jan 24, 2017. Subjective Patient continues to report pain "all over". He does report improvement in pain with adjustment of pump yesterday but is unable to quantify improvement. He still used 6 mg of IV hydromorphone yesterday similar to prior day. He is not utilizing oral hydromorphone due to persistent nausea/vomiting. Continues with a lot of pressure near midline incision. Reports less severe headache and denies any positional headache. Continues with frequent cough. Rates current pain 5/10 ranging between 5-7/10. No further constitutional complaints. Objective Vital Signs: Last Vital Signs Documentation Date Time Temp Pulse Resp B/P (MAP) Pulse Ox O2 Delivery O2 Flow Rate FiO2 01/24/17 07:14 36.8 92 15 148/88 (108) 91 Room Air 01/21/17 22:45 2.0 Physical Exam: Gen: NAD. Sleeping upon entering the room. Easily aroused. Moderate discomfort with movement. Abdomen: Soft. Non-distended. Dressing removed without discharge present. Minimal tenderness to palpation. No evidence of residual fluid present. Back/spine: Dressing removed for visual inspection. Dressing was completely soaked with an approximate quarter-sized area of reddish discharge centrally. Wound was approximated but was oozing clear to slightly yellow tinged thin fluid. There was some noticeable edema/fluid collection in the left lateral aspect of the incisional site as the patient has been lying in the left lateral decubitus position throughout the night while sleeping. Patient was generally tender surrounding the incisional site. Laboratory Laboratory Findings 01/23/17 05:10 Red Blood Count 2.86 L, Mean Corpuscular Volume 86.4, Mean Corpuscular Hemoglobin 29.4, Mean Corpuscular Hemoglobin Concent 34.0, Mean Platelet Volume 9.1, Neutrophils (%) (Auto) 57.5, Lymphocytes (%) (Auto) 22.6, Monocytes (%) ( Auto) 11.8, Eosinophils (%) (Auto) 7.2, Basophils (%) (Auto) 0.3, Neutrophils # (Auto) 3.66, Lymphocytes # (Auto) 1.44, Monocytes # (Auto) 0.75 H, Eosinophils # (Auto) 0.46, Basophils # (Auto) 0.02 Assessment 1. Postoperative day 3 of incision and drainage of lumbar spine wound with repair of CSF leak status post intrathecal catheter insertion 2. Chronic intractable neuropathic pain requiring implantation of intrathecal pump and catheter delivery system 3. Opioid dependency 4. History of metastatic lung cancer 5. Gastroparesis with history of gastric stimulator Recommendations 1. Will increase intrathecal hydromorphone dose by 5% today. Dose will adjust to 0.4155 mg per day. 2. Patient was encouraged to diminish use of IV hydromorphone for breakthrough pain. Continues to attempt use of oral hydromorphone. 3. There appears to be some increased drainage from the incisional site with dressing change today. Will plan for CT scan of the thoracolumbar region with and without contrast for further evaluation. 4. Patient's wound culture preliminary for staph aureus sensitive to vancomycin which he remains on at this t
[2017-01-24] MEDS: INSULIN ASPART 100 UNITS/ML 3 ML PEN SC SCH ×4 (09:35→21:00)
[2017-01-24] MEDS: INSULIN GLARGINE SOLOSTAR 100 UNITS/ML 3 ML PEN SC SCH ×2 (09:36→22:00)
--- NOTE | 2017-01-24 11:03 | Pain Management Consultation ---
Pain Consultation Date of Service Jan 24, 2017. Pain Consultation I spoke with the patient about continued leakage from his lumbar incision site. We'll plan to perform a CT myelogram today through his catheter access port to determine whether or not this is leakage is from continued dural leak versus leakage of CSF that has extravasated previously into his subcutaneous tissues. I spoke with the radiologist in regards to this study and we'll plan for her to be performed today. Consent was obtained and placed on the chart. Pending the outcome of this study will re-involve ortho spine in the care of this patient.
--- NOTE | 2017-01-24 13:37 | Pulmonology Progress Note ---
Pulmonary Progress Note Date of Service Jan 24, 2017. Attending Dr. Gomez Subjective Patient doing well today but did note 2 episodes of bright red blood over the last 24 hours. He currently denies any pleurisy or classic cardiac chest pain Objective Patient was in severe distress/discomfort during her conversation but was able to sit up in bed while Dr. Ford was able to evaluate his surgical incision. Radiology: Noncontrast CT of the chest 01/20/2017 Diffuse infiltrative process of the left lower lobe with associated pleural effusion 5mm nodule in the RB6 subsegment CT abdomen on 03/25/17: Mild pleural scarring otherwise clear pulmonary parenchyma no pleural effusion Chest x-ray 01/19/2017: 2 diffuse infiltrative process in the left lower hemithorax Chest x-ray 10/14/2016: No acute process noted Studies: WBC: 6K H/H: 01/28 PLT: 240 INR/PT/aPTT (01/14/17) 1.1/11.4/25.0 Medications: #1 vancomycin #2 levofloxacin #3 cefepime #4 albuterol HFA Medical Problems: Chronic pain Confusion Diabetes mellitus, type II Diabetic polyneuropathy Facial cellulitis Gastroparesis HTN (hypertension) Intractable nausea and vomiting Lung cancer Nausea and vomiting Neutropenia Epilepsy Neurogenic bladder Orthostatic hypotension Meningitis--previous intrathecal pump associated infection Surgical Problems: Colonoscopy Gastric Pacemaker esophagogastroduodenoscopy cholecystectomy tonsillectomy and adenoidectomy total knee arthroplasty S/P lobectomy of lung Intrathecal pump system placed a 25/06/2016 Previous intrathecal pump placement--complicated by infection Family History Cancer Diabetes mellitus Hypertension Social History Smoking: Previous smoker quit 2000 Alcohol Use: none Drug Use: none Marital Status: Housing Status: lives with family Occupation Status: disabled Microbiology 01/14/2017-- Wound site: Acinetobacter, MSSA 01/14/2017-- Wound site: MSSA 01/21/2017: Lumbar drain staph aureus Assessment & Plan 51-year-old gentleman with CSF leak, local incision infection as well as new onset changes in the left lobe with associated pleural effusion and 5 mm nodule: #1 Lung Cancer: History recently resected adenocarcinoma of the lung followed by chemo radiation with cisplatin based therapy per the patient defined as a stage III. Once again will require further information transferred from [place] to [facility]. The notable acute changes are 2 rapid for adenocarcinoma progression but will have to continue to monitor the 5 mm left lower lobe nodule. #2 Hemoptysis: Patient did have 2 episodes of bright red blood per his recollection of the last 24 hours. Do this I do suggest we move forward with bronchoscopy in the patient has agreed. Work on perform bronchoscopy [address] patient NPO. #3 Pleural Effusion: Performed thoracic ultrasound at the bedside and showed a dramatic resolution/decrease of the overall size of the pleural effusion. Does seem to be appropriately responding to current therapy and will continue to monitor. Etiology of the pleural effusion still could just be reactive secondary to acute lung injury versus parapneumonic/empyema or even dural pleural fistula but as the patient is responding to current therapy well reactive pleural effusion secondary to possible aspiration is most likely etiology. Data Medications: Current Inpatient Medications Medications (Trade) Dose Ordered Sig/Cal Route Start Time Stop Time Status Last Admin Dose Admin Acetaminophen (Tylenol Tab) 650 mg Q4H PRN PO 01/14/17 09:15 02/13/17 09:14 01/19/17 08:26 650 MG Al Hydrox/Mg Hydrox/Simethicone (Maalox Max Susp) 15 ml Q4H PRN PO 01/14/17 09:15 02/13/17 09:14 Magnesium Hydroxide (Milk Of Magnesia Susp) 30 ml Q6H PRN PO 01/14/17 09:15 02/13/17 09:14 Ondansetron HCl (Zofran Inj) 4 mg Q6H PRN IV 01/14/17 09:15 02/13/17 09:14 01/24/17 06:19 4 MG Epinephrine (Epipen) 0.3 mg UD PRN IM 01/14/17 09:15 02/13/17 09:14 Folic Acid (Folvite Tab) 1 mg QAM PO 01/15/17 09:00 02/14/17 08:59 01/24/17 09:05 1 MG Levetiracetam (Keppra Tab) 750 mg BID PO 01/14/17 21:00 02/13/17 20:59 01/24/17 09:09 750 MG Magnesium Chloride (Slow-Mag Tab) 64 mg BID PO 01/14/17 21:00 02/13/17 20:59 01/24/17 09:09 64 MG Metoclopramide HCl (Reglan Tab) 10 mg ACHS PRN PO 01/14/17 09:15 02/13/17 09:14 01/24/17 09:06 10 MG Metoprolol Tartrate (Lopressor Tab) 25 mg BID PO 01/14/17 21:00 02/13/17 20:59 01/24/17 09:11 25 MG Promethazine HCl (Phenergan Supp) 25 mg Q4H PRN ID 01/14/17 09:15 02/13/17 09:14 Venlafaxine HCl (effeXOR EXTENDED REL CAP) 37.5 mg QAM PO 01/15/17 09:00 02/14/17 08:59 01/24/17 09:06 37.5 MG Multivitamins (Multivitamin Tab) 1 tab QAM PO 01/15/17 09:00 02/14/17 08:59 01/24/17 09:09 1 TAB Hydromorphone HCl (Dilaudid Inj) 1 mg Q3HWA PRN IV 01/14/17 09:30 01/28/17 09:29 01/24/17 12:59 1 MG Albuterol (Ventolin Hfa Inhaler) 2 puffs Q6H PRN INH 01/14/17 09:30 02/13/17 09:29 Amlodipine Besylate (Norvasc Tab) 5 mg QAM PO 01/15/17 09:00 02/14/17 08:59 01/24/17 09:11 5 MG Gabapentin (Neurontin Tab) 600 mg TID PO 01/14/17 14:00 02/13/17 13:59 01/24/17 09:06 600 MG Glucose (Glucose 40% Gel) 15-30 GRAMS 15 GRAMS... UD PRN PO 01/14/17 10:00 02/13/17 09:59 Glucose (Glucose Chew Tab) 4-8 Tablets 4 Tabl... UD PRN PO 01/14/17 10:00 02/13/17 09:59 Dextrose (Dextrose 50% 50ML Syringe) 25-50ML OF 50% DW IV FOR... UD PRN IV 01/14/17 10:00 02/13/17 09:59 Glucagon (Glucagon Inj) 1 mg UD PRN SQ 01/14/17 10:00 02/13/17 09:59 Hydromorphone HCl (Dilaudid Tab) 2 mg Q4H PRN PO 01/15/17 09:45 01/29/17 09:44 01/22/17 21:44 2 MG Lorazepam (Ativan Tab) 1 mg TID PRN PO 01/15/17 17:30 02/14/17 17:29 01/22/17 21:43 1 MG Sucralfate (Carafate Susp) 1 gm QID PO 01/16/17 13:00 02/15/17 12:59 01/24/17 09:05 1 GM Daptomycin 500 mg/ Sodium Chloride 60 ml @ 100 mls/hr Q24H IV 01/17/17 14:00 02/28/17 13:59 Future Hold 01/19/17 14:08 100 MLS/HR Hydralazine HCl (HydrALAZINE INJ) 5 mg Q6 PRN IV. 01/17/17 15:30 02/16/17 15:29 01/21/17 19:26 5 MG Heparin Sodium (Porcine) (Heparin 10 Unit/ ml 5 ml Flush) 5 ml PRN PRN FLUSH 01/17/17 18:00 02/16/17 17:59 01/24/17 12:59 5 ML Sodium Chloride ([place] Nasal [place]) 1 sprays PRN PRN NA 01/18/17 06:30 02/17/17 06:29 Pantoprazole Sodium (Protonix Tab) 40 mg BID PO 01/18/17 21:00 02/17/17 20:59 01/24/17 09:06 40 MG Levofloxacin (Levaquin Tab) 750 mg DAILY@0900 PO 01/19/17 15:00 01/26/17 14:59 01/24/17 09:09 750 MG Cefepime HCl (Consult) 1 ea UD PRN N/A 01/19/17 14:30 02/18/17 14:29 Levofloxacin (Consult) 1 ea UD PRN N/A 01/19/17 14:45 02/18/17 14:44 Vancomycin HCl 1000 mg/Sodium Chloride 270 ml @ 125 mls/hr Q14H IV 01/20/17 12:00 01/26/17 23:59 01/24/17 00:23 125 MLS/HR Vancomycin HCl (Consult) 1 ea UD PRN N/A 01/19/17 17:15 02/18/17 17:14 Insulin Glargine (Lantus Solostar Pen) 15 units BID SC 01/20/17 09:00 02/13/17 20:59 01/24/17 09:36 15 UNITS Insulin Aspart (novoLOG ASPART) SLIDING SCALE G... ACHS SC 01/21/17 17:30 02/20/17 05:59 01/24/17 12:58 2 UNITS Cefepime HCl 2000 mg/Dextrose 112.5 ml @ 200 mls/hr Q12H IV 01/23/17 12:00 01/29/17 11:59 01/24/17 12:00 200 MLS/HR Vital Signs: Date Time Temp Pulse Resp B/P (MAP) Pulse Ox O2 Delivery O2 Flow Rate FiO2 01/24/17 07:25 Room Air 01/24/17 07:14 36.8 92 15 148/88 (108) 91 Room Air 01/24/17 00:30 Room Air 01/23/17 23:10 37.1 93 18 156/88 (110) 99 Room Air 01/23/17 21:27 94 148/87 (107) 01/23/17 16:15 Room Air 01/23/17 15:20 37.0 94 17 152/87 (108) 96 Room Air Laboratory Results: Last 24 Hours Test 01/23/17 17:13 01/23/17 17:55 01/23/17 21:05 01/24/17 05:28 Bedside Glucose 177 mg/dl 98 mg/dl Stool Occult Blood NEGATIVE Creatinine 1.30 mg/dl Est Creatinine Clear Calc Drug Dose 65.0 ml/min Estimated GFR () 73.2 Estimated GFR (Non- 63.2 Test 01/24/17 08:11 01/24/17 11:48 Bedside Glucose 97 mg/dl 168 mg/dl
--- NOTE | 2017-01-24 13:52 | Pain Clinic Procedure Note ---
Pain Management Procedure Note Procedure Date Jan 24, 2017. Procedure Description Procedure: Catheter Access Port Study/CT Myelogram Procedure Time Out: side/site verified, patient ID confirmed, correct procedure Consent Obtained: written Performed By: Dr. Idalia Hernandez Indications: diagnostic Contraindications: none Pre Procedure Vital Signs Date Time Temp Pulse Resp B/P (MAP) Pulse Ox O2 Delivery O2 Flow Rate FiO2 01/24/17 07:25 Room Air 01/24/17 07:14 36.8 92 15 148/88 (108) 91 Room Air ASA Class: 3 Description: CATHETER ACCESS PORT STUDY Diagnosis: Rule out continued CSF leak Surgeon: Dr. Idalia Hernandez Anesthesia:none The patient was consented and agrees to proceed as above, accepting the risks/ benefits of the procedure. No sign of infection was noted at needle insertion site. Time out performed. Verbal contact was maintained with the patient throughout the procedure. Standard monitoring was utilized. Fluoroscopic guidance was utilized. The [employer] catheter access kit was utilized with the short 24G non-coring needle used for the study. The abdomen was prepped with DuraPrep then betadine swabs times three and a sterile drape was applied. Using a pointer, the access port was identified then the 24G non-coring needle was placed into the access port. Approximately 3ml of clear fluid fluid was extracted. The fluid was free flowing. Next utilizing a bacteriostatic filter [id number] 7 mL were injected slowly through the catheter access port. Radiographic studies confirmed free-flowing intrathecal contrast in AP and lateral positions. The patient was placed in a reverse Trendelenburg position to ensure that contrast flowed to the level of at least L3. The patient will be sent to the CT scan for further analysis, however no posterior extravasation of intrathecal contrast was noted on plain film imaging of the thoracolumbar spine in both AP and lateral views. Complications: none Patient Tolerated Procedure: well Post-procedure Vital Signs: reviewed and stable Discharge Instructions: reviewed & understood
--- NOTE | 2017-01-24 14:52 | DIAGNOSTIC IMAGING REPORT ---
CT LUMBAR MYELOGRAM CLINICAL HISTORY: Back pain. Status post revision and dural patch for CSF leak. COMPARISON STUDY: Thoracolumbar spine radiographs January 15, [address] lumbar spine January 14, 2017. TECHNIQUE: The patient's intrathecal catheter was cannulized by Dr. Hernandez. Immediate CSF return was noted and 7 cc of Isovue 300 was instilled into the thecal sac. Axial images through the mid to lower thoracic spine and the lumbar spine were then obtained. Sagittal and coronal reconstructions were viewed. FINDINGS: Visualized portions of the chest demonstrate a small to moderate left pleural effusion. There is interlobular septal thickening indicative of pulmonary edema. Left lung airspace opacity may reflect superimposed pneumonia. Intrathecal catheter enters the thecal sac at the L2-L3 level. No gross CSF leak is identified at the insertion site. However, there is a small amount of contrast which extends along the catheter. No large pool of contrast is noted. Note is made of a 4.2 x 2.3 cm subcutaneous fluid collection at the L2-L3 level. This may be post surgical. Visualized portions of the catheter appear intact. The catheter was not imaged in its entirety. The paravertebral soft tissues are unremarkable. No acute lumbar spine fractures identified. Central canal and neural foramen appear patent by CT. IMPRESSION: 1. Minimal contrast extends along portions of the intrathecal catheter. This could reflect a tiny leak at the insertion site or less likely discontinuity of the catheter. Visualized portions of catheter appear intact by CT. No large contrast collection to suggest a gross CSF leak. 2. 4.2 x 2.3 cm subcutaneous fluid collection at the L2-L3 level. This is nonspecific although could be postsurgical or reflect sequela from previous CSF leak. 3. Small to moderate left pleural effusion. 4. Findings suggestive of mild pulmonary edema with asymmetric left lung airspace opacity which may reflect superimposed pulmonary edema. Left hilar fullness, suboptimally assessed on this unenhanced exam. Electronically signed by: Bryce Perez M.D. 01/24/2017 2:51 PM Dictated Date/Time: 01/24/2017 2:34 PM
--- NOTE | 2017-01-24 16:32 | Pain Management Progress Note ---
Pain Management Progress Note Date of Service Jan 24, 2017. Subjective We performed a CT myelogram on the patient today to better assess possible continued CSF leak. Objective Vital Signs: Last Vital Signs Documentation Date Time Temp Pulse Resp B/P (MAP) Pulse Ox O2 Delivery O2 Flow Rate FiO2 01/24/17 15:55 37.2 93 17 165/92 (116) 95 Room Air 01/21/17 22:45 2.0 Laboratory Laboratory Findings 01/23/17 05:10 Red Blood Count 2.86 L, Mean Corpuscular Volume 86.4, Mean Corpuscular Hemoglobin 29.4, Mean Corpuscular Hemoglobin Concent 34.0, Mean Platelet Volume 9.1, Neutrophils (%) (Auto) 57.5, Lymphocytes (%) (Auto) 22.6, Monocytes (%) ( Auto) 11.8, Eosinophils (%) (Auto) 7.2, Basophils (%) (Auto) 0.3, Neutrophils # (Auto) 3.66, Lymphocytes # (Auto) 1.44, Monocytes # (Auto) 0.75 H, Eosinophils # (Auto) 0.46, Basophils # (Auto) 0.[address]: enhanced, reports reviewed, images reviewed CT Findings Patient: NIKHIL MARTINS Address1: [address] [place] [address] Rec: [id number] Address2: Acct ID: [id number] [facility] Zip: [place] [address] Date: 1965 Sex: M Room/Bed: [facility] Ref Phy: Bran Burgess M.D. SC: LILIANA Att Phy: Antonino Car MD Report #: [id number] [place] Phy: Bran Burgess M.D. Test: [employer] Admit Phy: Aguila Saenz MD [employer] Supervisor: [employer] Interpreting Phy: Bryce Perez MD Diagnosis: INTRACTABLE NAUSEA AND VOMITING, INTRATHECAL PUMP Ordering Phy: Antonino Car MD Service Date: 01/24/17 Admit Date: 01/14/1709/11/17 MNE: [id number] CONF: DICTATED BY: Bryce Perez MD]] CC: Bran Burgess M.D., Robin A., MD [facility]: CT LUMBAR MYELOGRAM CLINICAL HISTORY: Back pain. Status post revision and dural patch for CSF leak. COMPARISON STUDY: Thoracolumbar spine radiographs January 15, [address] lumbar spine January 14, 2017. TECHNIQUE: The patient's intrathecal catheter was cannulized by Dr. Hernandez. Immediate CSF return was noted and 7 cc of Isovue 300 was instilled into the thecal sac. Axial images through the mid to lower thoracic spine and the lumbar spine were then obtained. Sagittal and coronal reconstructions were viewed. FINDINGS: Visualized portions of the chest demonstrate a small to moderate left pleural effusion. There is interlobular septal thickening indicative of pulmonary edema. Left lung airspace opacity may reflect superimposed pneumonia. Intrathecal catheter enters the thecal sac at the L2-L3 level. No gross CSF leak is identified at the insertion site. However, there is a small amount of contrast which extends along the catheter. No large pool of contrast is noted. Note is made of a 4.2 x 2.3 cm subcutaneous fluid collection at the L2-L3 level. This may be post surgical. Visualized portions of the catheter appear intact. The catheter was not imaged in its entirety. The paravertebral soft tissues are unremarkable. No acute lumbar spine fractures identified. Central canal and neural foramen appear patent by CT. IMPRESSION: 1. Minimal contrast extends along portions of the intrathecal catheter. This could reflect a tiny leak at the insertion site or less likely discontinuity of the catheter. Visualized portions of catheter appear intact by CT. No large contrast collection to suggest a gross CSF leak. 2. 4.2 x 2.3 cm subcutaneous fluid collection at the L2-L3 level. This is nonspecific although could be postsurgical or reflect sequela from previous CSF leak. 3. Small to moderate left pleural effusion. 4. Findings suggestive of mild pulmonary edema with asymmetric left lung airspace opacity which may reflect superimposed pulmonary edema. Left hilar fullness, suboptimally assessed on this unenhanced exam. Assessment 1. Postoperative day 3 of incision and drainage of lumbar spine wound with repair of CSF leak status post intrathecal catheter insertion 2. Chronic intractable neuropathic pain requiring implantation of intrathecal pump and catheter delivery system 3. Opioid dependency 4. History of metastatic lung cancer 5. Gastroparesis with history of gastric stimulator Recommendations 1. I had a long talk with the patient today after reviewing the results of his CT myelogram with the radiologist. I told Nikhil that there was not a large ongoing CSF leak at this time status post surgical repair. I feel that some of the contrast noted extradural on the CT may have pooled into that area as the patient was lying supine and with a small catheter size it is injected under pressure and healing process is still ongoing surrounding his catheter. I do not feel that a return trip to the OR is warranted at this time and we will continue to monitor for drainage from his lumbar wound. The patient is in agreement with this plan and all of his questions were answered before I left the room. 2. I will increase his IV and oral narcotic doses off for the next day as I did extract all of the narcotics from his intrathecal catheter prior to injection of contrast. It should take approximately 12 hours for medication to get to the tip of his intrathecal catheter.
[2017-01-24] MEDS ORDERED: LACTOBACILLUS ACIDOPHILUS (FLORANEX) TAB PO ONE (18:30)
--- NOTE | 2017-01-24 19:19 | Progress Note ---
Medicine Progress Note Date & Time of Visit: Jan 24, 2017 at 19:12. Subjective patient seen resting in bed, at bedside having increased back pain today also vomiting half of his meals denies dyspnea, cough improving but still has occasional hemoptysis no other symptoms Objective Last 8 Hrs Date Time Temp Pulse Resp B/P (MAP) Pulse Ox O2 Delivery O2 Flow Rate FiO2 01/24/17 17:31 142/83 (102) 01/24/17 15:55 37.2 93 17 165/92 (116) 95 Room Air Physical Exam: General- oriented x 3, not in distress, speaks in sentences with no effort Eyes- anicteric Neck- no JVD Lungs- (+) rhonchi bilateral bases, no wheezing Heart- regular rhythm; no murmur, normal rate Abdomen- normal bowel sounds, soft, nontender Extremities- grade 1 lower leg edema, no tenderness/erythema/warmth/swelling peripheral pulses intact Back- dressing in place over surgical site: clean, no discharge noted Neuro- alert, oriented x 3; no gross focal deficits Skin- warm & dry Laboratory Results: Last 24 Hours Test 01/23/17 21:05 01/24/17 05:28 01/24/17 08:11 01/24/17 11:48 Bedside Glucose 98 mg/dl 97 mg/dl 168 mg/dl Creatinine 1.30 mg/dl Est Creatinine Clear Calc Drug Dose 65.0 ml/min Estimated GFR () 73.2 Estimated GFR (Non- 63.2 Test 01/24/17 17:41 Bedside Glucose 268 mg/dl Assessment & Plan Intrathecal pump leakage, MSSA and Acinetobacter Infection s/p I and D by pain management on 01/14/17 s/p repair 01/21/17 s/p picc line -- afebrile -- repeat CT noted -- ID consulted currently on Vanco, Cefepime, Levaquin (also to cover Pneumonia) -- Pain Management SVC following monitor surgical site for discharge Pneumonia, L Lower Lobe with Parapneumonic Effusion -- repeat blood and urine culture: negative repeat Lumbar spine Drainage: MSSA - on antibiotics per # 1, ID consulted - Thoracentesis deferred for now Hemoptysis -- in the setting of pneumonia, effusion, lung CA --Pulm consulted, for possible Bronchoscopy in AM Vomiting -- known to have gastroparesis, s/p gastric pacemaker -- from underlying infections? -- PRN antiemetics if worsening, will re-consult GI Bilateral Lower Leg Edema -- Leg US to r/o DVT: negative -- will give 1 dose of Lasix 20mg IV Ambulatory dysfunction: -- pt/ot Metastatic lung cancer. - The patient is currently no longer on chemo - Dr. Amanda consulted, plan to repeat CT chest in 3 months DM 2 -- currently on Lantus 15units bid and iss History of gastroparesis and on gastric pacemaker. CAT scan showed esophagitis. On PPI Consulted GI. s/p egd has reflux oesophagitis. bleeding scan was done which was unremarkable Gi recommends ppi bid and Carafate. Anemia -- s/p 2 units PRBC -- Hg stable at 8.4 History of hypertension. -- Continue amlodipine and Lopressor History of epilepsy. Continue Keppra. Currently stable. History of neurogenic bladder. Deep venous thrombosis prophylaxis, SCDs for now. DISPOSITION: Monitor in medical floor. pt/ot social service for d/c planning Current Inpatient Medications: Current Inpatient Medications Medications (Trade) Dose Ordered Sig/Cal Route Start Time Stop Time Status Last Admin Dose Admin Acetaminophen (Tylenol Tab) 650 mg Q4H PRN PO 01/14/17 09:15 02/13/17 09:14 01/19/17 08:26 650 MG Al Hydrox/Mg Hydrox/Simethicone (Maalox Max Susp) 15 ml Q4H PRN PO 01/14/17 09:15 02/13/17 09:14 Magnesium Hydroxide (Milk Of Magnesia Susp) 30 ml Q6H PRN PO 01/14/17 09:15 02/13/17 09:14 Ondansetron HCl (Zofran Inj) 4 mg Q6H PRN IV 01/14/17 09:15 02/13/17 09:14 01/24/17 16:12 4 MG Epinephrine (Epipen) 0.3 mg UD PRN IM 01/14/17 09:15 02/13/17 09:14 Folic Acid (Folvite Tab) 1 mg QAM PO 01/15/17 09:00 02/14/17 08:59 01/24/17 09:05 1 MG Levetiracetam (Keppra Tab) 750 mg BID PO 01/14/17 21:00 02/13/17 20:59 01/24/17 09:09 750 MG Magnesium Chloride (Slow-Mag Tab) 64 mg BID PO 01/14/17 21:00 02/13/17 20:59 01/24/17 09:09 64 MG Metoclopramide HCl (Reglan Tab) 10 mg ACHS PRN PO 01/14/17 09:15 02/13/17 09:14 01/24/17 17:33 10 MG Metoprolol Tartrate (Lopressor Tab) 25 mg BID PO 01/14/17 21:00 02/13/17 20:59 01/24/17 09:11 25 MG Promethazine HCl (Phenergan Supp) 25 mg Q4H PRN OH 01/14/17 09:15 02/13/17 09:14 Venlafaxine HCl (effeXOR EXTENDED REL CAP) 37.5 mg QAM PO 01/15/17 09:00 02/14/17 08:59 01/24/17 09:06 37.5 MG Multivitamins (Multivitamin Tab) 1 tab QAM PO 01/15/17 09:00 02/14/17 08:59 01/24/17 09:09 1 TAB Albuterol (Ventolin Hfa Inhaler) 2 puffs Q6H PRN INH 01/14/17 09:30 02/13/17 09:29 Amlodipine Besylate (Norvasc Tab) 5 mg QAM PO 01/15/17 09:00 02/14/17 08:59 01/24/17 09:11 5 MG Gabapentin (Neurontin Tab) 600 mg TID PO 01/14/17 14:00 02/13/17 13:59 01/24/17 14:17 600 MG Glucose (Glucose 40% Gel) 15-30 GRAMS 15 GRAMS... UD PRN PO 01/14/17 10:00 02/13/17 09:59 Glucose (Glucose Chew Tab) 4-8 Tablets 4 Tabl... UD PRN PO 01/14/17 10:00 02/13/17 09:59 Dextrose (Dextrose 50% 50ML Syringe) 25-50ML OF 50% DW IV FOR... UD PRN IV 01/14/17 10:00 02/13/17 09:59 Glucagon (Glucagon Inj) 1 mg UD PRN SQ 01/14/17 10:00 02/13/17 09:59 Lorazepam (Ativan Tab) 1 mg TID PRN PO 01/15/17 17:30 02/14/17 17:29 01/22/17 21:43 1 MG Sucralfate (Carafate Susp) 1 gm QID PO 01/16/17 13:00 02/15/17 12:59 01/24/17 17:33 1 GM Daptomycin 500 mg/ Sodium Chloride 60 ml @ 100 mls/hr Q24H IV 01/17/17 14:00 02/28/17 13:59 Future Hold 01/19/17 14:08 100 MLS/HR Hydralazine HCl (HydrALAZINE INJ) 5 mg Q6 PRN IV. 01/17/17 15:30 02/16/17 15:29 01/21/17 19:26 5 MG Heparin Sodium (Porcine) (Heparin 10 Unit/ ml 5 ml Flush) 5 ml PRN PRN FLUSH 01/17/17 18:00 02/16/17 17:59 01/24/17 17:37 5 ML Sodium Chloride ([place] Nasal [place]) 1 sprays PRN PRN NA 01/18/17 06:30 02/17/17 06:29 Pantoprazole Sodium (Protonix Tab) 40 mg BID PO 01/18/17 21:00 02/17/17 20:59 01/24/17 09:06 40 MG Levofloxacin (Levaquin Tab) 750 mg DAILY@0900 PO 01/19/17 15:00 01/26/17 14:59 01/24/17 09:09 750 MG Cefepime HCl (Consult) 1 ea UD PRN N/A 01/19/17 14:30 02/18/17 14:29 Levofloxacin (Consult) 1 ea UD PRN N/A 01/19/17 14:45 02/18/17 14:44 Vancomycin HCl 1000 mg/Sodium Chloride 270 ml @ 125 mls/hr Q14H IV 01/20/17 12:00 01/26/17 23:59 01/24/17 14:47 125 MLS/HR Vancomycin HCl (Consult) 1 ea UD PRN N/A 01/19/17 17:15 02/18/17 17:14 Insulin Glargine (Lantus Solostar Pen) 15 units BID SC 01/20/17 09:00 02/13/17 20:59 01/24/17 09:36 15 UNITS Insulin Aspart (novoLOG ASPART) SLIDING SCALE G... ACHS SC 01/21/17 17:30 02/20/17 05:59 01/24/17 18:18 10 UNITS Cefepime HCl 2000 mg/Dextrose 112.5 ml @ 200 mls/hr Q12H IV 01/23/17 12:00 01/29/17 11:59 01/24/17 12:00 200 MLS/HR Hydromorphone HCl (Dilaudid Inj) 1 mg Q1H PRN IV 01/24/17 14:30 01/25/17 08:00 01/24/17 18:54 1 MG Hydromorphone HCl (Dilaudid Tab) 4 mg Q3H PRN PO 01/24/17 14:30 02/07/17 14:29 Lactobacillus Acidophilus (Floranex Tab) 4 tab TIDM PO 01/25/17 08:30 02/24/17 08:29
[2017-01-24] MEDS ORDERED: FUROSEMIDE INJ 20 MG in SYRINGE 0 ML IV ONE (19:30)
[2017-01-24] MEDS: HydrALAZINE HCL 20 MG/ML VIAL IV. PRN (23:32)
[2017-01-25] VITALS (26 sets, daily range): BP systolic 122–214; BP diastolic 69–123; PULSE 78–99; TEMP 36.3–37.1; O2SAT 90–100
[2017-01-25] MEDS: CEFEPIME IV 2,000 MG in DEXTROSE 5% 100ML 100 ML IV SCH (01:17)
[2017-01-25] MEDS: HYDROmorphone INJ 1 MG/ML SYR IV PRN ×3 (01:29→07:10)
[2017-01-25] MEDS ORDERED: AMLODIPINE BESYLATE 5 MG TAB PO ONE (02:02)
[2017-01-25] MEDS ORDERED: CLONIDINE HCL 0.1 MG TAB PO PRN (02:15)
[2017-01-25] MEDS ORDERED: VANCOMYCIN TROUGH SCH (03:30)
[2017-01-25 03:56] LABS: PARTIAL THROMBOPLASTIN RATIO 1.2; PROTHROMBIN TIME (PATIENT) 10.7 SECONDS (9.0-12.0)
[2017-01-25] MEDS: VANCOMYCIN INJ 1,000 MG in SODIUM CHLORIDE 0.9% 250ML 250 ML IV SCH (04:42)
--- NOTE | 2017-01-25 06:31 | DIAGNOSTIC IMAGING REPORT ---
LUMBAR MYELOGRAM CLINICAL HISTORY: CSF leak Fluoroscopy time: 1.5 minutes. PROCEDURE: The procedure, risks and benefits were discussed with the patient by Dr Hernandez and informed written consent was obtained. The procedure was performed by Dr. Hernandez. Utilizing sterile technique, the patient's intrathecal catheter was cannulated and 7 cc of Isovue 300 was instilled into the thecal sac under direct fluoroscopy. Thecal sac opacification was adequate. No contrast extravasation was identified by fluoroscopy. The patient tolerated the procedure well and no immediate complications were evident. The patient was transported to CT. IMPRESSION: Fluoroscopically guided lumbar myelogram with 7 cc of Isovue-300 instilled into the thecal sac through the patient's indwelling intrathecal catheter. Electronically signed by: Bryce Perez M.D. 01/25/2017 6:30 AM Dictated Date/Time: 01/25/2017 6:27 AM
[2017-01-25] MEDS: HYDROmorphone HCL 2 MG TAB PO PRN ×5 (07:06→23:46)
[2017-01-25] MEDS: HydrALAZINE HCL 20 MG/ML VIAL IV. PRN (07:26)
[2017-01-25] MEDS: LACTOBACILLUS ACIDOPHILUS (FLORANEX) TAB PO SCH ×3 (08:30→17:49)
[2017-01-25] MEDS: INSULIN ASPART 100 UNITS/ML 3 ML PEN SC SCH ×4 (08:37→21:38)
[2017-01-25] MEDS: SUCRALFATE 1 GM/10 ML UDC PO SCH ×4 (09:00→21:40)
[2017-01-25] MEDS: GABAPENTIN 600 MG TAB PO SCH ×3 (09:00→21:40)
--- NOTE | 2017-01-25 10:15 | Pain Management Progress Note ---
Pain Management Progress Note Date of Service Jan 25, 2017. Subjective Jeff reports improved pain relief since yesterday and decreased intensity and frequency of his positional headaches. He reports he was able to sleep all night without pain or discomfort. He reports no drainage at the lumbar spine wound site. He has been out of bed and ambulatory. He is undergoing bronchoscopy today. Continues experience hemoptysis and cough. Objective Vital Signs: Last Vital Signs Documentation Date Time Temp Pulse Resp B/P (MAP) Pulse Ox O2 Delivery O2 Flow Rate FiO2 01/25/17 08:10 184/80 (114) 01/25/17 07:53 37.1 92 18 93 Room Air 01/25/17 00:00 2.0 Physical Exam: Jeff was resting comfortably upon entering the room. He is easily arousable and responds appropriate. He is oriented times place and person and demonstrates normal and clear sensorium. Inspection of wound site demonstrates no erythema but continues to appear edematous around the incision. There was mild serous drainage on the bandage. No clear fluid is noted. No bleeding is noted. Wound is mildly tender, improved compared to previous exams. He is able to sit up easily and get out of bed and ambulate without difficulty. Laboratory Laboratory Findings 01/23/17 05:10 Neutrophils (%) (Auto) 57.5, Lymphocytes (%) (Auto) 22.6, Monocytes (%) (Auto) 11.8, Eosinophils (%) (Auto) 7.2, Basophils (%) (Auto) 0.3, Neutrophils # (Auto ) 3.66, Lymphocytes # (Auto) 1.44, Monocytes # (Auto) 0.75 H, Eosinophils # ( Auto) 0.46, Basophils # (Auto) 0.02 Assessment 1. Postoperative day 4 of incision and drainage of lumbar spine wound with repair of CSF leak status post intrathecal catheter insertion 2. Chronic intractable neuropathic pain requiring implantation of intrathecal pump and catheter delivery system 3. Opioid dependency 4. History of metastatic lung cancer 5. Gastroparesis with history of gastric stimulator Recommendations 1. No evidence current CSF leak. Improving posterior puncture headache. Continue to monitor. 2. Improved pain relief. Maintain current intrathecal dosage.
--- NOTE | 2017-01-25 10:42 | Bronchoscopy Procedure Note ---
Bronchoscopy Procedure Note Procedure: Bronchoscopy, conscious sedation, bronchial lavage left lower lobe Consent: Obtained through the patient placed into the chart Pre-procedural diagnosis: Hemoptysis Post-procedural diagnosis: Epistaxis Start time: 1011 End time: 1024 Total time: 13 minutes Analgesia: 2% liquid lidocaine: Via nebulizer 4% gel lidocaine: Via right naris 2% liquid lidocaine: Via bronchoscopy Sedation: Versed IV: 5 mg Fentanyl IV: 125 g Procedure: The Olympus video bronchoscope was used for this procedure and passed down through the right naris Right Naris: Small granuloma which was bleeding just at the takeoff of the middle turbinate which was also notable dried blood on the anterior subsegment of the turbinate Posterior naris/posterior oropharynx: Anatomically within normal limits, mild blood appreciated in these areas Glottis: Anatomically within normal limits, minimal blood appreciated around the glottis Vocal cords: Proper abduction and abduction, anatomically within normal limits Subglottis/trachea/Keila: Anatomically within normal limits, minimal blood appreciated on the posterior wall of the trachea Right bronchial tree: Right mainstem bronchus: Anatomically within normal limits Right upper lobe: Anatomically within normal limits Bronchus intermedius: Anatomically within normal limits Right middle lobe: Anatomically within normal limits Right lower lobe: Anatomically within normal limits Findings: No significant findings noted Left bronchial tree: Left mainstem bronchus: Anatomically within normal limits Left upper lobe/lingula: Sutures in place approximately 1 cm after the takeoff to the left upper lobe, no signs of breakdown or dehiscence Left lower lobe: Anatomically within normal limits Findings: No significant findings noted Bronchial alveolar lavage: Left lower lobe EBL: 3 cc Complications: Mild intraprocedural hypoxemia easily reversed with asking the patient to perform deep inspiration Follow-up: In the [facility]
[2017-01-25] MEDS ORDERED: NURSING VERBAL MED ORDER ONE ×2 (10:45→14:00)
--- NOTE | 2017-01-25 10:46 | Consultant Recommendations ---
Creative Writing English Professor Recommendations Date of Service Jan 25, 2017. Creative Writing English Professor Recommendations At this time pulmonary service will sign off. This patient's changes on CT as well as left-sided pleural effusion should be monitored. He does have a left lower lobe 5 mm nodule but also requires monitoring as he has recently resection of an adenocarcinoma. He did have hemoptysis which eventually was noted to be epistaxis so no further monitoring for hemoptysis is necessary at this time. The patient should be seen in the pulmonary Department 4-6 weeks after discharge with repeat noncontrast CT at that time.
--- NOTE | 2017-01-25 10:54 | Progress Note ---
Subjective Date of Service: Jan 25, 2017. Subjective pt off of floor at time of my exam. he has been afebrile. on multiple abx. last ID note 01/17 - continue dapto and po cipro for infected pain pump. pt with hill and leak, back to OR on 01/21 - culture again with MSSA, final. all blood cultures negative. He was changed to cefepime levaquin and vanco. tolerating. Had ct l spine yesterday, 4.2x2.3cm abscess found. vanco level today 20.8. Problem List Medical Problems: (1) Acute kidney injury Status: Acute (2) Altered mental status Status: Acute (3) Anemia Status: Acute (4) Chronic pain Status: Acute (5) Dehydration Status: Acute (6) Dehydration Status: Acute (7) Dehydration Status: Acute (8) Dehydration Status: Acute (9) Diabetes mellitus with hyperglycemia Status: Acute (10) Failure of outpatient treatment Status: Acute (11) Hypomagnesemia Status: Acute (12) Hypomagnesemia Status: Acute (13) Intractable vomiting Status: Acute (14) Intractable vomiting Status: Acute (15) Intrathecal pump infection Status: Acute (16) Orthostatic hypotension Status: Acute (17) Vomiting Status: Acute (18) Vomiting Status: Acute Objective Vital Signs Date Time Temp Pulse Resp B/P (MAP) Pulse Ox O2 Delivery O2 Flow Rate FiO2 01/25/17 08:10 184/80 (114) 01/25/17 07:53 37.1 92 18 193/117 (142) 93 Room Air 214/108 (143) 01/25/17 07:30 Room Air 01/25/17 07:20 96 192/106 (134) 01/25/17 05:32 167/94 (118) 01/25/17 04:44 93 205/109 (141) 01/25/17 01:38 174/102 (126) 01/25/17 01:26 98 174/100 (124) 01/25/17 00:18 174/102 (126) 01/25/17 00:00 Nasal Cannula 2.0 01/24/17 23:28 98 174/104 (127) 01/24/17 23:14 95 Nasal Cannula 2.0 01/24/17 23:12 37.2 99 14 190/108 (135) 88 Room Air 01/24/17 21:39 104 156/85 (108) 01/24/17 17:31 142/83 (102) 01/24/17 16:10 Room Air 01/24/17 15:55 37.2 93 17 165/92 (116) 95 Room Air Laboratory Results Item Value Date Time Gram Stain - Final Resulted 01/21/17 0000 Drainage-Deep Lumbar Gram Stain - Final Complete 01/14/17 1400 Drainage-Deep Back Blood Culture - Final Complete 01/19/17 1444 Blood NO GROWTH Blood Culture - Final Complete 01/19/17 1436 Blood NO GROWTH Gram Stain - Final Complete 01/14/17 0600 Incision Site Abdomin, Right Lower Quadrant Last 24 Hours Test 01/24/17 11:48 01/24/17 17:41 01/24/17 20:21 01/25/17 03:23 Bedside Glucose 168 mg/dl 268 mg/dl 122 mg/dl Prothrombin Time 10.7 SECONDS Prothromb Time International Ratio 1.0 Activated Partial Thromboplast Time 31.4 SECONDS Partial Thromboplastin Ratio 1.2 Vancomycin Level Trough 20.8 mcg/ml Test 01/25/17 08:03 Bedside Glucose 161 mg/dl Assessment and Plan (1) Intrathecal pump infection Assessment & Plan: pt has pcn allergy, can continue levaquin for previous acinetobacter infection at pump site, duration as previous. can continue with IV vanco. concerned for persistent + cultures on IV abx, may need more extensive surgical debridement, pump removal with persistent infection and now with abscess found on CT. continue IV abx for now.
[2017-01-25] MEDS ORDERED: MIDAZOLAM HCL 5 MG/ML 1 ML VIAL IV ONE (11:00)
[2017-01-25] MEDS ORDERED: FENTANYL CITRATE INJ 50 MCG/1 ML 2 ML VIAL IV ONE (11:00)
[2017-01-25] MEDS: INSULIN GLARGINE SOLOSTAR 100 UNITS/ML 3 ML PEN SC SCH ×2 (13:02→21:39)
[2017-01-25] MEDS: MAGNESIUM CHLORIDE 64MG DELAYED REL TAB PO SCH ×2 (13:06→21:40)
[2017-01-25] MEDS: AMLODIPINE BESYLATE 5 MG TAB PO SCH ×2 (13:06→21:40)
[2017-01-25] MEDS: MULTIVITAMIN TAB PO SCH (13:07)
[2017-01-25] MEDS: METOPROLOL TARTRATE 25 MG TAB PO SCH ×2 (13:07→21:40)
[2017-01-25] MEDS: LEVOFLOXACIN 750 MG TAB PO SCH (13:08)
[2017-01-25] MEDS: LEVETIRACETAM 250 MG TAB PO SCH ×2 (13:08→21:40)
[2017-01-25] MEDS: VENLAFAXINE HCL XR 37.5 MG CAPXR PO SCH (13:09)
[2017-01-25] MEDS: PANTOprazole SOD 40 MG TAB PO SCH ×2 (13:11→21:40)
[2017-01-25] MEDS ORDERED: DO NOT ADMINISTER FLU VACCINE PRN ×3 (14:15)
[2017-01-25] MEDS: ONDANSETRON INJ 2 MG/ML 2 ML VIAL IV PRN (15:39)
--- NOTE | 2017-01-25 16:16 | Pharmacy Progress Note ---
Pharmacy Antibiotic Prog Note Date of Service Jan 25, 2017. Subjective The patient is currently receiving vancomycin 1000 mg IV every 14 hours. The patient is currently on day # 7 of this course of vancomycin IV therapy, and day 7 of Levaquin po therapy. Objective Height (Feet): 5 Height (Inches): 8.00 Weight (Kilograms): 78.200 Levels: Item Value Date Time Vancomycin Level Trough 20.8 mcg/ml 01/25/17 0323 Previous dose hung 01/24 @1447. Lab Results (24hrs): Test 01/25/17 03:23 01/25/17 08:03 01/25/17 12:13 Prothrombin Time 10.7 SECONDS (9.0-12.0) Prothromb Time International Ratio 1.0 (0.9-1.1) Activated Partial Thromboplast Time 31.4 SECONDS (21.0-31.0) Partial Thromboplastin Ratio 1.2 Vancomycin Level Trough 20.8 mcg/ml (SEE COMMENT) Bedside Glucose 161 mg/dl (70-99) 181 mg/dl (70-99) Micro Results: 01/21 lumbar deep drainage- MSSA, sens vanc (ANNE MARIE=2) 01/25 bronch washing LLL pending Recent Pertinent Medications Item Value Date Time Vancomycin HCl 275 ml @ 125 mls/hr 01/26/17 0200 1250 mg/Sodium Q18H/IV Chloride Cefepime HCl 2000 112.5 ml @ 200 mls/hr 01/23/17 1200 mg/Dextrose Q12H/IV 01/25/17 0117 Vancomycin HCl 270 ml @ 125 mls/hr 01/20/17 1200 1000 mg/Sodium Q14H/IV 01/25/17 0442 Chloride Levofloxacin 750 mg 01/19/17 1500 (Levaquin Tab) DAILY@0900/PO 01/25/17 1308 Assessment & Plan This drug level is: slightly Supratherapeutic, probably due to accumulation. Will extend dosage interval. Change to vancomycin 1250 mg IV every 18 hours. Goal trough level estimate: between 15-20 mcg/mL. Trough has been ordered for: 01/28/17 before 0800 dose. Continue Levaquin 750 mg po q24h for unchanged renal function. Pharmacy will continue to follow and will adjust dose/frequency as necessary. Thank you
[2017-01-25] MEDS ORDERED: HYDROmorphone INJ 0.5 MG/0.5 ML SYR IV PRN (20:00)
--- NOTE | 2017-01-25 20:02 | Progress Note ---
Medicine Progress Note Date & Time of Visit: Jan 25, 2017 at 20:02. Objective Last 8 Hrs Date Time Temp Pulse Resp B/P (MAP) Pulse Ox O2 Delivery O2 Flow Rate FiO2 01/25/17 15:22 Room Air 01/25/17 15:05 36.3 78 20 134/74 (94) 96 Room Air 01/25/17 12:15 36.8 88 18 185/110 (135) 96 Nasal Cannula 4.0 Physical Exam: General- oriented x 3, not in distress, speaks in sentences with no effort Eyes- anicteric Neck- no JVD Lungs- (+) rhonchi bilateral bases, no wheezing Heart- regular rhythm; no murmur, normal rate Abdomen- normal bowel sounds, soft, nontender Extremities- grade 1 lower leg edema, no tenderness/erythema/warmth/swelling peripheral pulses intact Back- dressing in place over surgical site: clean, no discharge noted Neuro- alert, oriented x 3; no gross focal deficits Skin- warm & dry Laboratory Results: Last 24 Hours Test 01/24/17 20:21 01/25/17 03:23 01/25/17 08:03 01/25/17 12:13 Bedside Glucose 122 mg/dl 161 mg/dl 181 mg/dl Prothrombin Time 10.7 SECONDS Prothromb Time International Ratio 1.0 Activated Partial Thromboplast Time 31.4 SECONDS Partial Thromboplastin Ratio 1.2 Vancomycin Level Trough 20.8 mcg/ml Test 01/25/17 17:20 Bedside Glucose 291 mg/dl Date/Time Source Procedure Growth Status 01/25/17 10:45 Bronchial Washings Left Lower Lobe Fungal Smear Pending Received 01/25/17 10:45 Bronchial Washings Left Lower Lobe Fungal Culture Pending Received 01/25/17 10:45 Bronchial Washings Left Lower Lobe Acid Fast Stain Pending Received 01/25/17 10:45 Bronchial Washings Left Lower Lobe Mycobacterial Culture Pending Received 01/25/17 10:45 Bronchial Washings Left Lower Lobe Gram Stain - Final Resulted 01/25/17 10:45 Bronchial Washings Left Lower Lobe Bronchoalveolar Lavage Culture Pending Resulted Assessment & Plan Intrathecal pump leakage, MSSA and Acinetobacter Infection s/p I and D by pain management on 01/14/17 s/p repair 01/21/17 s/p picc line -- afebrile -- repeat CT noted -- ID consulted currently on Vanco, Cefepime, Levaquin (also to cover Pneumonia) -- Pain Management SVC following monitor surgical site for discharge Pneumonia, L Lower Lobe with Parapneumonic Effusion -- repeat blood and urine culture: negative repeat Lumbar spine Drainage: MSSA - on antibiotics per # 1, ID consulted - Thoracentesis deferred for now Hemoptysis -- in the setting of pneumonia, effusion, lung CA --Pulm consulted, for possible Bronchoscopy in AM Vomiting -- known to have gastroparesis, s/p gastric pacemaker -- from underlying infections? -- PRN antiemetics if worsening, will re-consult GI Bilateral Lower Leg Edema -- Leg US to r/o DVT: negative -- will give 1 dose of Lasix 20mg IV Ambulatory dysfunction: -- pt/ot Metastatic lung cancer. - The patient is currently no longer on chemo - Dr. Amanda consulted, plan to repeat CT chest in 3 months DM 2 -- currently on Lantus 15units bid and iss History of gastroparesis and on gastric pacemaker. CAT scan showed esophagitis. On PPI Consulted GI. s/p egd has reflux oesophagitis. bleeding scan was done which was unremarkable Gi recommends ppi bid and Carafate. Anemia -- s/p 2 units PRBC -- Hg stable at 8.4 History of hypertension. -- Continue amlodipine and Lopressor History of epilepsy. Continue Keppra. Currently stable. History of neurogenic bladder. Deep venous thrombosis prophylaxis, SCDs for now. DISPOSITION: Monitor in medical floor. pt/ot social service for d/c planning Current Inpatient Medications: Current Inpatient Medications Medications (Trade) Dose Ordered Sig/Cal Route Start Time Stop Time Status Last Admin Dose Admin Acetaminophen (Tylenol Tab) 650 mg Q4H PRN PO 01/14/17 09:15 02/13/17 09:14 01/19/17 08:26 650 MG Al Hydrox/Mg Hydrox/Simethicone (Maalox Max Susp) 15 ml Q4H PRN PO 01/14/17 09:15 02/13/17 09:14 Magnesium Hydroxide (Milk Of Magnesia Susp) 30 ml Q6H PRN PO 01/14/17 09:15 02/13/17 09:14 Ondansetron HCl (Zofran Inj) 4 mg Q6H PRN IV 01/14/17 09:15 02/13/17 09:14 01/25/17 15:39 4 MG Epinephrine (Epipen) 0.3 mg UD PRN IM 01/14/17 09:15 02/13/17 09:14 Folic Acid (Folvite Tab) 1 mg QAM PO 01/15/17 09:00 02/14/17 08:59 01/25/17 13:09 1 MG Levetiracetam (Keppra Tab) 750 mg BID PO 01/14/17 21:00 02/13/17 20:59 01/25/17 13:08 750 MG Magnesium Chloride (Slow-Mag Tab) 64 mg BID PO 01/14/17 21:00 02/13/17 20:59 01/25/17 13:06 64 MG Metoclopramide HCl (Reglan Tab) 10 mg ACHS PRN PO 01/14/17 09:15 02/13/17 09:14 01/24/17 17:33 10 MG Metoprolol Tartrate (Lopressor Tab) 25 mg BID PO 01/14/17 21:00 02/13/17 20:59 01/25/17 13:07 25 MG Promethazine HCl (Phenergan Supp) 25 mg Q4H PRN [place] 01/14/17 09:15 02/13/17 09:14 Venlafaxine HCl (effeXOR EXTENDED REL CAP) 37.5 mg QAM PO 01/15/17 09:00 02/14/17 08:59 01/25/17 13:09 37.5 MG Multivitamins (Multivitamin Tab) 1 tab QAM PO 01/15/17 09:00 02/14/17 08:59 01/25/17 13:07 1 TAB Albuterol (Ventolin Hfa Inhaler) 2 puffs Q6H PRN INH 01/14/17 09:30 02/13/17 09:29 Gabapentin (Neurontin Tab) 600 mg TID PO 01/14/17 14:00 02/13/17 13:59 01/25/17 13:55 600 MG Glucose (Glucose 40% Gel) 15-30 GRAMS 15 GRAMS... UD PRN PO 01/14/17 10:00 02/13/17 09:59 Glucose (Glucose Chew Tab) 4-8 Tablets 4 Tabl... UD PRN PO 01/14/17 10:00 02/13/17 09:59 Dextrose (Dextrose 50% 50ML Syringe) 25-50ML OF 50% DW IV FOR... UD PRN IV 01/14/17 10:00 02/13/17 09:59 Glucagon (Glucagon Inj) 1 mg UD PRN SQ 01/14/17 10:00 02/13/17 09:59 Lorazepam (Ativan Tab) 1 mg TID PRN PO 01/15/17 17:30 02/14/17 17:29 01/22/17 21:43 1 MG Sucralfate (Carafate Susp) 1 gm QID PO 01/16/17 13:00 02/15/17 12:59 01/25/17 17:49 1 GM Daptomycin 500 mg/ Sodium Chloride 60 ml @ 100 mls/hr Q24H IV 01/17/17 14:00 02/28/17 13:59 Future Hold 01/19/17 14:08 100 MLS/HR Hydralazine HCl (HydrALAZINE INJ) 5 mg Q6 PRN IV. 01/17/17 15:30 02/16/17 15:29 01/25/17 07:26 5 MG Heparin Sodium (Porcine) (Heparin 10 Unit/ ml 5 ml Flush) 5 ml PRN PRN FLUSH 01/17/17 18:00 02/16/17 17:59 01/25/17 15:39 5 ML Sodium Chloride ([place] Nasal [place]) 1 sprays PRN PRN NA 01/18/17 06:30 02/17/17 06:29 Pantoprazole Sodium (Protonix Tab) 40 mg BID PO 01/18/17 21:00 02/17/17 20:59 01/25/17 13:11 40 MG Levofloxacin (Levaquin Tab) 750 mg DAILY@0900 PO 01/19/17 15:00 01/26/17 14:59 01/25/17 13:08 750 MG Levofloxacin (Consult) 1 ea UD PRN N/A 01/19/17 14:45 02/18/17 14:44 Vancomycin HCl (Consult) 1 ea UD PRN N/A 01/19/17 17:15 02/18/17 17:14 Insulin Glargine (Lantus Solostar Pen) 15 units BID SC 01/20/17 09:00 02/13/17 20:59 01/25/17 13:02 15 UNITS Insulin Aspart (novoLOG ASPART) SLIDING SCALE G... ACHS SC 01/21/17 17:30 02/20/17 05:59 01/25/17 19:13 17 UNITS Hydromorphone HCl (Dilaudid Tab) 4 mg Q3H PRN PO 01/24/17 14:30 02/07/17 14:29 01/25/17 17:12 4 MG Lactobacillus Acidophilus (Floranex Tab) 4 tab TIDM PO 01/25/17 08:30 02/24/17 08:29 01/25/17 17:49 4 TAB Amlodipine Besylate (Norvasc Tab) 5 mg BID PO 01/25/17 09:00 02/24/17 08:59 01/25/17 13:06 5 MG Clonidine HCl (Catapres Tab) 0.1 mg Q4H PRN PO 01/25/17 02:15 02/24/17 02:14 01/25/17 04:53 0.1 MG Influenza Virus Vacc Triv Types A&B 1 ea PRN PRN N/A 01/25/17 14:15 02/24/17 14:14 Vancomycin HCl 1250 mg/Sodium Chloride 275 ml @ 125 mls/hr Q18H IV 01/26/17 02:00 01/29/27 01:59
[2017-01-25] MEDS: METOCLOPRAMIDE HCL 10 MG TAB PO PRN (20:39)
--- NOTE | 2017-01-25 23:24 | Progress Note ---
Medicine Progress Note Date & Time of Visit: Jan 25, 2017 at 23:19. Subjective patient seen sleeping but easily rousable back pain about the same no dyspnea, hemoptysis still reports nausea, vomiting less no other symptoms Objective Last 8 Hrs Date Time Temp Pulse Resp B/P (MAP) Pulse Ox O2 Delivery O2 Flow Rate FiO2 01/25/17 21:33 93 130/79 (96) 01/25/17 15:22 Room Air Physical Exam: General- oriented x 3, not in distress, speaks in sentences with no effort Eyes- anicteric Lungs- (+) mild rhonchi bilateral bases, no wheezing Heart- regular rhythm; no murmur, normal rate Abdomen- normal bowel sounds, soft, nontender Extremities- mild lower leg edema, no tenderness/erythema/warmth/swelling peripheral pulses intact Back- dressing in place over surgical site: clean, no discharge noted Neuro- alert, oriented x 3; no gross focal deficits Skin- warm & dry Laboratory Results: Last 24 Hours Test 01/25/17 03:23 01/25/17 08:03 01/25/17 12:13 01/25/17 17:20 Prothrombin Time 10.7 SECONDS Prothromb Time International Ratio 1.0 Activated Partial Thromboplast Time 31.4 SECONDS Partial Thromboplastin Ratio 1.2 Vancomycin Level Trough 20.8 mcg/ml Bedside Glucose 161 mg/dl 181 mg/dl 291 mg/dl Test 01/25/17 20:25 Bedside Glucose 127 mg/dl Date/Time Source Procedure Growth Status 01/25/17 10:45 Bronchial Washings Left Lower Lobe Fungal Smear Pending Received 01/25/17 10:45 Bronchial Washings Left Lower Lobe Fungal Culture Pending Received 01/25/17 10:45 Bronchial Washings Left Lower Lobe Acid Fast Stain Pending Received 01/25/17 10:45 Bronchial Washings Left Lower Lobe Mycobacterial Culture Pending Received 01/25/17 10:45 Bronchial Washings Left Lower Lobe Gram Stain - Final Resulted 01/25/17 10:45 Bronchial Washings Left Lower Lobe Bronchoalveolar Lavage Culture Pending Resulted Assessment & Plan Intrathecal pump leakage, MSSA and Acinetobacter Infection s/p I and D by pain management on 01/14/17 s/p repair 01/21/17 s/p picc line -- afebrile -- repeat CT noted recurrence of leakage not likely at this time per Pain Mgt SVC -- ID consulted currently on Vanco,Levaquin (also to cover Pneumonia); Cefepime discontinued -- Pain Management SVC following monitor surgical site for discharge Pneumonia, L Lower Lobe with Parapneumonic Effusion -- repeat blood and urine culture: negative repeat Lumbar spine Drainage: MSSA - on antibiotics per # 1, ID consulted - Thoracentesis deferred for now Hemoptysis -- in the setting of pneumonia, effusion, lung CA --Pulm consulted s/p Bronchoscopy: no bronchial lesions, hemoptysis likely from nasal lesion Vomiting -- known to have gastroparesis, s/p gastric pacemaker -- from underlying infections? -- PRN antiemetics if worsening, will re-consult GI Bilateral Lower Leg Edema -- Leg US to r/o DVT: negative -- given 1 dose of Lasix 20mg IV, edema improving Ambulatory dysfunction: -- pt/ot Metastatic lung cancer. - The patient is currently no longer on chemo - Dr. Amanda consulted, plan to repeat CT chest in 3 months DM 2 -- currently on Lantus 15units bid and iss History of gastroparesis and on gastric pacemaker. CAT scan showed esophagitis. On PPI Consulted GI. s/p egd has reflux oesophagitis. bleeding scan was done which was unremarkable Gi recommends ppi bid and Carafate. Anemia -- s/p 2 units PRBC -- Hg stable at 8.4 History of hypertension. -- Continue amlodipine and Lopressor History of epilepsy. Continue Keppra. Currently stable. History of neurogenic bladder. Deep venous thrombosis prophylaxis, SCDs for now. DISPOSITION: Monitor in medical floor. pt/ot social service for d/c planning Current Inpatient Medications: Current Inpatient Medications Medications (Trade) Dose Ordered Sig/Cal Route Start Time Stop Time Status Last Admin Dose Admin Acetaminophen (Tylenol Tab) 650 mg Q4H PRN PO 01/14/17 09:15 02/13/17 09:14 01/19/17 08:26 650 MG Al Hydrox/Mg Hydrox/Simethicone (Maalox Max Susp) 15 ml Q4H PRN PO 01/14/17 09:15 02/13/17 09:14 Magnesium Hydroxide (Milk Of Magnesia Susp) 30 ml Q6H PRN PO 01/14/17 09:15 02/13/17 09:14 Ondansetron HCl (Zofran Inj) 4 mg Q6H PRN IV 01/14/17 09:15 02/13/17 09:14 01/25/17 15:39 4 MG Epinephrine (Epipen) 0.3 mg UD PRN IM 01/14/17 09:15 02/13/17 09:14 Folic Acid (Folvite Tab) 1 mg QAM PO 01/15/17 09:00 02/14/17 08:59 01/25/17 13:09 1 MG Levetiracetam (Keppra Tab) 750 mg BID PO 01/14/17 21:00 02/13/17 20:59 01/25/17 21:40 750 MG Magnesium Chloride (Slow-Mag Tab) 64 mg BID PO 01/14/17 21:00 02/13/17 20:59 01/25/17 21:40 64 MG Metoclopramide HCl (Reglan Tab) 10 mg ACHS PRN PO 01/14/17 09:15 02/13/17 09:14 01/25/17 20:39 10 MG Metoprolol Tartrate (Lopressor Tab) 25 mg BID PO 01/14/17 21:00 02/13/17 20:59 01/25/17 21:40 25 MG Promethazine HCl (Phenergan Supp) 25 mg Q4H PRN [place] 01/14/17 09:15 02/13/17 09:14 Venlafaxine HCl (effeXOR EXTENDED REL CAP) 37.5 mg QAM PO 01/15/17 09:00 02/14/17 08:59 01/25/17 13:09 37.5 MG Multivitamins (Multivitamin Tab) 1 tab QAM PO 01/15/17 09:00 02/14/17 08:59 01/25/17 13:07 1 TAB Albuterol (Ventolin Hfa Inhaler) 2 puffs Q6H PRN INH 01/14/17 09:30 02/13/17 09:29 Gabapentin (Neurontin Tab) 600 mg TID PO 01/14/17 14:00 02/13/17 13:59 01/25/17 21:40 600 MG Glucose (Glucose 40% Gel) 15-30 GRAMS 15 GRAMS... UD PRN PO 01/14/17 10:00 02/13/17 09:59 Glucose (Glucose Chew Tab) 4-8 Tablets 4 Tabl... UD PRN PO 01/14/17 10:00 02/13/17 09:59 Dextrose (Dextrose 50% 50ML Syringe) 25-50ML OF 50% DW IV FOR... UD PRN IV 01/14/17 10:00 02/13/17 09:59 Glucagon (Glucagon Inj) 1 mg UD PRN SQ 01/14/17 10:00 02/13/17 09:59 Lorazepam (Ativan Tab) 1 mg TID PRN PO 01/15/17 17:30 02/14/17 17:29 01/22/17 21:43 1 MG Sucralfate (Carafate Susp) 1 gm QID PO 01/16/17 13:00 02/15/17 12:59 01/25/17 21:40 1 GM Daptomycin 500 mg/ Sodium Chloride 60 ml @ 100 mls/hr Q24H IV 01/17/17 14:00 02/28/17 13:59 Future Hold 01/19/17 14:08 100 MLS/HR Hydralazine HCl (HydrALAZINE INJ) 5 mg Q6 PRN IV. 01/17/17 15:30 02/16/17 15:29 01/25/17 07:26 5 MG Heparin Sodium (Porcine) (Heparin 10 Unit/ ml 5 ml Flush) 5 ml PRN PRN FLUSH 01/17/17 18:00 02/16/17 17:59 01/25/17 15:39 5 ML Sodium Chloride ([place] Nasal [place]) 1 sprays PRN PRN NA 01/18/17 06:30 02/17/17 06:29 Pantoprazole Sodium (Protonix Tab) 40 mg BID PO 01/18/17 21:00 02/17/17 20:59 01/25/17 21:40 40 MG Levofloxacin (Levaquin Tab) 750 mg DAILY@0900 PO 01/19/17 15:00 01/26/17 14:59 01/25/17 13:08 750 MG Levofloxacin (Consult) 1 ea UD PRN N/A 01/19/17 14:45 02/18/17 14:44 Vancomycin HCl (Consult) 1 ea UD PRN N/A 01/19/17 17:15 02/18/17 17:14 Insulin Glargine (Lantus Solostar Pen) 15 units BID SC 01/20/17 09:00 02/13/17 20:59 01/25/17 21:39 15 UNITS Insulin Aspart (novoLOG ASPART) SLIDING SCALE G... ACHS SC 01/21/17 17:30 02/20/17 05:59 01/25/17 21:38 8 UNITS Hydromorphone HCl (Dilaudid Tab) 4 mg Q3H PRN PO 01/24/17 14:30 02/07/17 14:29 01/25/17 20:37 4 MG Lactobacillus Acidophilus (Floranex Tab) 4 tab TIDM PO 01/25/17 08:30 02/24/17 08:29 01/25/17 17:49 4 TAB Amlodipine Besylate (Norvasc Tab) 5 mg BID PO 01/25/17 09:00 02/24/17 08:59 01/25/17 21:40 5 MG Clonidine HCl (Catapres Tab) 0.1 mg Q4H PRN PO 01/25/17 02:15 02/24/17 02:14 01/25/17 04:53 0.1 MG Influenza Virus Vacc Triv Types A&B 1 ea PRN PRN N/A 01/25/17 14:15 02/24/17 14:14 Vancomycin HCl 1250 mg/Sodium Chloride 275 ml @ 125 mls/hr Q18H IV 01/26/17 02:00 01/29/27 01:59 Hydromorphone HCl (Dilaudid Inj) 0.5 mg Q12H PRN IV 01/25/17 20:00 02/08/17 19:59
[2017-01-26] VITALS (8 sets, daily range): BP systolic 131–192; BP diastolic 73–109; PULSE 89–102; TEMP 36.4–36.9; O2SAT 93–98
[2017-01-26] MEDS: VANCOMYCIN INJ 1,250 MG in SODIUM CHLORIDE 0.9% 250ML 250 ML IV SCH ×2 (02:18→22:19)
[2017-01-26] MEDS: HYDROmorphone HCL 2 MG TAB PO PRN ×2 (03:11→06:11)
[2017-01-26] MEDS ORDERED: VANCOMYCIN TROUGH SCH (03:30)
[2017-01-26 08:27] LABS: CREATININE 1.2 mg/dl (0.60-1.40)
[2017-01-26] MEDS: ONDANSETRON INJ 2 MG/ML 2 ML VIAL IV PRN ×2 (09:17→16:49)
[2017-01-26] MEDS: VENLAFAXINE HCL XR 37.5 MG CAPXR PO SCH (10:06)
[2017-01-26] MEDS: MAGNESIUM CHLORIDE 64MG DELAYED REL TAB PO SCH ×2 (10:06→22:23)
[2017-01-26] MEDS: GABAPENTIN 600 MG TAB PO SCH ×3 (10:06→22:23)
[2017-01-26] MEDS: LACTOBACILLUS ACIDOPHILUS (FLORANEX) TAB PO SCH ×3 (10:06→17:45)
[2017-01-26] MEDS: LEVOFLOXACIN 750 MG TAB PO SCH (10:06)
[2017-01-26] MEDS: AMLODIPINE BESYLATE 5 MG TAB PO SCH ×2 (10:06→22:22)
[2017-01-26] MEDS: PANTOprazole SOD 40 MG TAB PO SCH ×2 (10:06→22:20)
[2017-01-26] MEDS: MULTIVITAMIN TAB PO SCH (10:06)
[2017-01-26] MEDS: SUCRALFATE 1 GM/10 ML UDC PO SCH ×4 (10:06→22:23)
[2017-01-26] MEDS: LEVETIRACETAM 250 MG TAB PO SCH ×2 (10:07→22:22)
[2017-01-26] MEDS: INSULIN ASPART 100 UNITS/ML 3 ML PEN SC SCH ×4 (10:15→22:17)
[2017-01-26] MEDS: INSULIN GLARGINE SOLOSTAR 100 UNITS/ML 3 ML PEN SC SCH ×2 (10:16→22:19)
[2017-01-26] MEDS: METOPROLOL TARTRATE 25 MG TAB PO SCH ×2 (10:21→22:21)
[2017-01-26] MEDS: HydrALAZINE HCL 20 MG/ML VIAL IV. PRN ×2 (11:47→23:41)
[2017-01-26] MEDS: ACETAMINOPHEN 325 MG TAB PO PRN (13:42)
--- NOTE | 2017-01-26 16:15 | Progress Note ---
Medicine Progress Note Date & Time of Visit: Jan 26, 2017 at 16:08. Subjective seen sitting up in chair, parents at the bedside reports back pain about the same as yesterday, noted discharge on the dressing denies fever/chills, has mild frontal headache still has nausea legs more swollen today Objective Last 8 Hrs Date Time Temp Pulse Resp B/P (MAP) Pulse Ox O2 Delivery O2 Flow Rate FiO2 01/26/17 15:41 36.9 89 18 131/73 (92) 97 Room Air 01/26/17 12:26 159/91 (113) 01/26/17 11:47 172/100 (124) 01/26/17 11:15 183/96 (125) Physical Exam: General- oriented x 3, not in distress, speaks in sentences with no effort Eyes- anicteric Lungs-clear breath sounds bilaterally, no rales/wheezes Heart- regular rhythm; no murmur, normal rate Abdomen- normal bowel sounds, soft, nontender dressing intact, very small yellow drainage seen Extremities- grade 1-2 lower leg edema, blister on the right lower leg?; no tenderness/erythema/warmth/swelling peripheral pulses intact Back- surgical incision site without dehiscence, (+) white/yellow thick discharge, mild surrounding erythema with tenderness Neuro- alert, oriented x 3; no gross focal deficits Skin- warm & dry Laboratory Results: Last 24 Hours Test 01/25/17 17:20 01/25/17 20:25 01/26/17 07:44 01/26/17 08:05 Bedside Glucose 291 mg/dl 127 mg/dl 164 mg/dl Creatinine 1.20 mg/dl Est Creatinine Clear Calc Drug Dose 70.5 ml/min Estimated GFR () 80.7 Estimated GFR (Non- 69.6 Test 01/26/17 11:51 Bedside Glucose 159 mg/dl Assessment & Plan Intrathecal pump leakage, MSSA and Acinetobacter Infection s/p I and D by pain management on 01/14/17 s/p repair 01/21/17 s/p picc line -- afebrile -- repeat CT noted -- (+) thick discharge from incision site noted -- currently on Vancomycin and Levaquin per ID -- called Dr. Hope's phone to inform of finding, patient may need I&D, awaiting callback Pneumonia, L Lower Lobe with Parapneumonic Effusion -- repeat blood and urine culture: negative repeat Lumbar spine Drainage: MSSA - on antibiotics per # 1, ID consulted - Thoracentesis deferred for now Hemoptysis -- in the setting of pneumonia, effusion, lung CA --Pulm consulted s/p Bronchoscopy: no bronchial lesions, hemoptysis likely from granuloma lesion from middle turbinate -- no recurrence Vomiting -- known to have gastroparesis, s/p gastric pacemaker -- from underlying infections? -- about the same -- PRN antiemetics if worsening, will re-consult GI Bilateral Lower Leg Edema -- Leg US to r/o DVT: negative -- edema worse today, Lasix 40mg IV ordered Ambulatory dysfunction: -- pt/ot Metastatic lung cancer. - The patient is currently no longer on chemo - Dr. Amanda consulted, plan to repeat CT chest in 3 months DM 2 -- currently on Lantus 15units bid and iss History of gastroparesis and on gastric pacemaker. CAT scan showed esophagitis. On PPI Consulted GI. s/p egd has reflux oesophagitis. bleeding scan was done which was unremarkable -- Gi recommends ppi bid and Carafate. Anemia -- s/p 2 units PRBC -- Hg stable at 8.4 History of hypertension. -- Continue amlodipine and Lopressor History of epilepsy. -- Continue Keppra. Currently stable. History of neurogenic bladder. Deep venous thrombosis prophylaxis -- SCDs for now. DISPOSITION: Monitor in medical floor. pt/ot social service for d/c planning Current Inpatient Medications: Current Inpatient Medications Medications (Trade) Dose Ordered Sig/Cal Route Start Time Stop Time Status Last Admin Dose Admin Acetaminophen (Tylenol Tab) 650 mg Q4H PRN PO 01/14/17 09:15 02/13/17 09:14 01/26/17 13:42 650 MG Al Hydrox/Mg Hydrox/Simethicone (Maalox Max Susp) 15 ml Q4H PRN PO 01/14/17 09:15 02/13/17 09:14 Magnesium Hydroxide (Milk Of Magnesia Susp) 30 ml Q6H PRN PO 01/14/17 09:15 02/13/17 09:14 Ondansetron HCl (Zofran Inj) 4 mg Q6H PRN IV 01/14/17 09:15 02/13/17 09:14 01/26/17 09:17 4 MG Epinephrine (Epipen) 0.3 mg UD PRN IM 01/14/17 09:15 02/13/17 09:14 Folic Acid (Folvite Tab) 1 mg QAM PO 01/15/17 09:00 02/14/17 08:59 01/26/17 10:08 1 MG Levetiracetam (Keppra Tab) 750 mg BID PO 01/14/17 21:00 02/13/17 20:59 01/26/17 10:07 750 MG Magnesium Chloride (Slow-Mag Tab) 64 mg BID PO 01/14/17 21:00 02/13/17 20:59 01/26/17 10:06 64 MG Metoclopramide HCl (Reglan Tab) 10 mg ACHS PRN PO 01/14/17 09:15 02/13/17 09:14 01/25/17 20:39 10 MG Metoprolol Tartrate (Lopressor Tab) 25 mg BID PO 01/14/17 21:00 02/13/17 20:59 01/26/17 10:21 25 MG Promethazine HCl (Phenergan Supp) 25 mg Q4H PRN [place] 01/14/17 09:15 02/13/17 09:14 Venlafaxine HCl (effeXOR EXTENDED REL CAP) 37.5 mg QAM PO 01/15/17 09:00 02/14/17 08:59 01/26/17 10:06 37.5 MG Multivitamins (Multivitamin Tab) 1 tab QAM PO 01/15/17 09:00 02/14/17 08:59 01/26/17 10:06 1 TAB Albuterol (Ventolin Hfa Inhaler) 2 puffs Q6H PRN INH 01/14/17 09:30 02/13/17 09:29 Gabapentin (Neurontin Tab) 600 mg TID PO 01/14/17 14:00 02/13/17 13:59 01/26/17 13:27 600 MG Glucose (Glucose 40% Gel) 15-30 GRAMS 15 GRAMS... UD PRN PO 01/14/17 10:00 02/13/17 09:59 Glucose (Glucose Chew Tab) 4-8 Tablets 4 Tabl... UD PRN PO 01/14/17 10:00 02/13/17 09:59 Dextrose (Dextrose 50% 50ML Syringe) 25-50ML OF 50% DW IV FOR... UD PRN IV 01/14/17 10:00 02/13/17 09:59 Glucagon (Glucagon Inj) 1 mg UD PRN SQ 01/14/17 10:00 02/13/17 09:59 Lorazepam (Ativan Tab) 1 mg TID PRN PO 01/15/17 17:30 02/14/17 17:29 01/22/17 21:43 1 MG Sucralfate (Carafate Susp) 1 gm QID PO 01/16/17 13:00 02/15/17 12:59 01/26/17 13:28 1 GM Daptomycin 500 mg/ Sodium Chloride 60 ml @ 100 mls/hr Q24H IV 01/17/17 14:00 02/28/17 13:59 Future Hold 01/19/17 14:08 100 MLS/HR Hydralazine HCl (HydrALAZINE INJ) 5 mg Q6 PRN IV. 01/17/17 15:30 02/16/17 15:29 01/26/17 11:47 5 MG Heparin Sodium (Porcine) (Heparin 10 Unit/ ml 5 ml Flush) 5 ml PRN PRN FLUSH 01/17/17 18:00 02/16/17 17:59 01/26/17 11:47 5 ML Sodium Chloride ([place] Nasal [place]) 1 sprays PRN PRN NA 01/18/17 06:30 02/17/17 06:29 Pantoprazole Sodium (Protonix Tab) 40 mg BID PO 01/18/17 21:00 02/17/17 20:59 01/26/17 10:06 40 MG Levofloxacin (Consult) 1 ea UD PRN N/A 01/19/17 14:45 01/26/17 16:00 Vancomycin HCl (Consult) 1 ea UD PRN N/A 01/19/17 17:15 02/18/17 17:14 Insulin Glargine (Lantus Solostar Pen) 15 units BID SC 01/20/17 09:00 02/13/17 20:59 01/26/17 10:16 15 UNITS Insulin Aspart (novoLOG ASPART) SLIDING SCALE G... ACHS SC 01/21/17 17:30 02/20/17 05:59 01/26/17 13:36 7 UNITS Hydromorphone HCl (Dilaudid Tab) 4 mg Q3H PRN PO 01/24/17 14:30 02/07/17 14:29 01/26/17 06:11 4 MG Lactobacillus Acidophilus (Floranex Tab) 4 tab TIDM PO 01/25/17 08:30 02/24/17 08:29 01/26/17 13:27 4 TAB Amlodipine Besylate (Norvasc Tab) 5 mg BID PO 01/25/17 09:00 02/24/17 08:59 01/26/17 10:06 5 MG Clonidine HCl (Catapres Tab) 0.1 mg Q4H PRN PO 01/25/17 02:15 02/24/17 02:14 01/25/17 04:53 0.1 MG Influenza Virus Vacc Triv Types A&B 1 ea PRN PRN N/A 01/25/17 14:15 02/24/17 14:14 Vancomycin HCl 1250 mg/Sodium Chloride 275 ml @ 125 mls/hr Q18H IV 01/26/17 02:00 01/29/27 01:59 01/26/17 02:18 125 MLS/HR Hydromorphone HCl (Dilaudid Inj) 0.5 mg Q12H PRN IV 01/25/17 20:00 02/08/17 19:59 01/26/17 09:18 0.5 MG
[2017-01-26] MEDS ORDERED: FUROSEMIDE INJ 40 MG in SYRINGE 0 ML IV ONE (16:30)
[2017-01-26] MEDS ORDERED: NURSING VERBAL MED ORDER ONE (16:30)
[2017-01-26] MEDS ORDERED: HYDROmorphone INJ 0.5 MG/0.5 ML SYR IV ONE (16:30)
[2017-01-26 16:45] LABS: BASO % 0.1 %; BASO ABS # 0.01 K/uL (0-0.2); EOS % 7.1 %; HEMATOCRIT 25.6 % (42-52); LYMPH % 18.6 %; LYMPH ABS # 1.26 K/uL (1.2-3.4); MEAN CELL VOLUME 86.2 fL (80-100); MEAN CORPUSCULAR HEMOGLOBIN 28.3 pg (25-34); MEAN CORPUSCULAR HGB CONC 32.8 g/dl (32-36); MEAN PLATELET VOLUME 8.2 fL (7.4-10.4); MONO % 8.4 %; NEUT % 64.8 %; PLATELET COUNT 217 K/uL (130-400); RED BLOOD COUNT 2.97 M/uL (4.7-6.1); WHITE BLOOD COUNT 6.78 K/uL (4.8-10.8)
[2017-01-26 17:09] LABS: COMPLETE YES
[2017-01-26 17:15] LABS: BUN/CREATININE RATIO 12.3 (10-20); CALCIUM 8.5 mg/dl (8.5-10.1); CREATININE 1.3 mg/dl (0.60-1.40); POTASSIUM 4.4 mmol/L (3.5-5.1)
[2017-01-26] MEDS ORDERED: OPTIRAY 320 IV PRN (19:45)
[2017-01-26] MEDS: HYDROmorphone INJ 0.5 MG/0.5 ML SYR IV PRN (21:05)
--- NOTE | 2017-01-26 23:22 | DIAGNOSTIC IMAGING REPORT ---
LUMBAR SPINE CT CT DOSE: 1216.13 mGy.cm HISTORY: Low back pain. r/o abscess TECHNIQUE: Multiaxial CT images of the lumbar spine were performed and reformatted in the sagittal and coronal plane without the use of contrast. A dose lowering technique was utilized adhering to the principles of ALARA. COMPARISON: Lumbar spine CT 01/24/2017. FINDINGS: No fracture or subluxation within the lumbar spine. Mild disc space narrowing at T11-T12. No endplate erosions identified. Evaluation of the central canal is essentially nondiagnostic due to the CT technique. Intrathecal catheter enters the L2-L3 interlaminar space and extends cephalad. The tip is not included on this study. Posterior to the L2 spinous process there is a thick-walled 5.5 x 4.9 x 2.5 cm subcutaneous fluid collection. This contains multiple loops of the catheter. This has slightly increased in size. Subcutaneous edema within the lumbar region persists. IMPRESSION: Slight increase in size in the thick-walled subcutaneous fluid collection within the lumbar region posterior to the L2 spinous process. This measures 5.5 x 4.9 x 2.5 cm and surrounds multiple loops of the intrathecal catheter. Therefore, this could represent an abscess or a persistent leak of the catheter. A postoperative seroma/hematoma could also have a similar appearance but is considered less likely given the slight increase in size. Electronically signed by: Danilo Langley M.D. 01/26/2017 11:20 PM Dictated Date/Time: 01/26/2017 11:02 PM
[2017-01-27 01:44] VITALS: BP 144/78; PULSE 87
[2017-01-27] MEDS: HYDROmorphone HCL 2 MG TAB PO PRN ×4 (05:39→20:32)
[2017-01-27 05:48] LABS: BASO % 0.2 %; BASO ABS # 0.01 K/uL (0-0.2); EOS % 8.2 %; HEMATOCRIT 25.2 % (42-52); LYMPH % 27.9 %; MEAN CELL VOLUME 87.2 fL (80-100); MEAN CORPUSCULAR HEMOGLOBIN 28.7 pg (25-34); MEAN CORPUSCULAR HGB CONC 32.9 g/dl (32-36); MEAN PLATELET VOLUME 8.4 fL (7.4-10.4); MONO % 14.1 %; NEUT % 47.6 %; PLATELET COUNT 220 K/uL (130-400); RED BLOOD COUNT 2.89 M/uL (4.7-6.1); WHITE BLOOD COUNT 5.02 K/uL (4.8-10.8)
[2017-01-27 06:16] LABS: BUN/CREATININE RATIO 13.4 (10-20); CALCIUM 8.2 mg/dl (8.5-10.1); CREATININE 1.2 mg/dl (0.60-1.40); POTASSIUM 4.2 mmol/L (3.5-5.1)
[2017-01-27 06:23] LABS: COMPLETE YES
[2017-01-27 07:11] VITALS: BP 163/87; PULSE 92; TEMP 36.7; O2SAT 91
[2017-01-27] MEDS: METOCLOPRAMIDE HCL 10 MG TAB PO PRN (07:32)
--- NOTE | 2017-01-27 08:54 | Progress Note ---
Progress Note Date of Service Jan 27, 2017. Progress Note Patient is standing in the bathroom shaving. Is quite comfortable at this time. He still does describe occasional headaches but they're not positional in nature. On physical exam incision is intact. Sutures are in place. There is actually no erythema. There is evidence of some swelling fluctuant mass. It is nontender to palpation. There is evidence of some drainage at the distal end of the incision. It essentially clear does not appear to be a purulent nature. CAT scan does demonstrate evidence of a fluid collection in the soft tissues about the L2 spinous process. Strong suspect were seeing the products of DuraSeal and FloSeal. Bodies resorbed these products and that's most likely what we are witnessing on the dressing. Do not suspect this is infected. There is no evidence of acute on exam.
[2017-01-27] MEDS: SUCRALFATE 1 GM/10 ML UDC PO SCH ×4 (08:56→21:08)
[2017-01-27] MEDS: MAGNESIUM CHLORIDE 64MG DELAYED REL TAB PO SCH ×2 (08:57→21:08)
[2017-01-27] MEDS: LEVETIRACETAM 250 MG TAB PO SCH ×2 (08:57→21:08)
[2017-01-27] MEDS: LEVOFLOXACIN / D5W 500 MG in PREMIXED IN D5W 100 ML IV SCH (08:57)
[2017-01-27] MEDS: MULTIVITAMIN TAB PO SCH (08:57)
[2017-01-27] MEDS: PANTOprazole SOD 40 MG TAB PO SCH ×2 (08:57→21:07)
[2017-01-27] MEDS: VENLAFAXINE HCL XR 37.5 MG CAPXR PO SCH (08:58)
[2017-01-27] MEDS: METOPROLOL TARTRATE 25 MG TAB PO SCH ×2 (08:58→21:07)
[2017-01-27] MEDS: AMLODIPINE BESYLATE 5 MG TAB PO SCH ×2 (08:59→21:08)
[2017-01-27] MEDS: LACTOBACILLUS ACIDOPHILUS (FLORANEX) TAB PO SCH ×3 (08:59→17:45)
[2017-01-27] MEDS: GABAPENTIN 600 MG TAB PO SCH ×3 (09:00→21:08)
[2017-01-27] MEDS: INSULIN ASPART 100 UNITS/ML 3 ML PEN SC SCH ×4 (09:08→21:56)
[2017-01-27] MEDS: INSULIN GLARGINE SOLOSTAR 100 UNITS/ML 3 ML PEN SC SCH (09:09)
[2017-01-27] MEDS ORDERED: LEVOFLOXACIN CONSULT ACTIVE PRN (09:45)
[2017-01-27 10:07] VITALS: BP 157/86; PULSE 99
[2017-01-27] MEDS: VANCOMYCIN INJ 1,250 MG in SODIUM CHLORIDE 0.9% 250ML 250 ML IV SCH (13:53)
[2017-01-27 15:02] VITALS: BP 127/68; PULSE 94; TEMP 37.1; O2SAT 94
[2017-01-27] MEDS: HYDROmorphone INJ 0.5 MG/0.5 ML SYR IV PRN (15:39)
--- NOTE | 2017-01-27 15:41 | Progress Note ---
Medicine Progress Note Date & Time of Visit: Jan 27, 2017 at 15:36. Subjective seen sitting at the edge of the bed states he feels improved today vomited breakfast this AM, kept lunch down back pain about the same still has some leg swelling denies other symptoms Objective Last 8 Hrs Date Time Temp Pulse Resp B/P (MAP) Pulse Ox O2 Delivery O2 Flow Rate FiO2 01/27/17 15:02 37.1 94 18 127/68 (87) 94 Room Air 01/27/17 10:07 99 157/86 (109) Physical Exam: General- oriented x 3, not in distress, speaks in sentences with no effort Eyes- anicteric Lungs-clear BS BL Heart- regular rhythm; no murmur, normal rate Abdomen- normal bowel sounds, soft, nontender dressing intact, very small yellow drainage seen Extremities- grade 1-2 lower leg edema, blister on the right lower leg; no tenderness/erythema/warmth/swelling peripheral pulses intact Back- surgical incision site without dehiscence, (+) scant white discharge, mild surrounding erythema with tenderness Neuro- alert, oriented x 3; no gross focal deficits Skin- warm & dry Laboratory Results: Last 24 Hours Test 01/26/17 16:34 01/26/17 17:06 01/26/17 20:24 01/27/17 05:35 White Blood Count 6.78 K/uL 5.02 K/uL Red Blood Count 2.97 M/uL 2.89 M/uL Hemoglobin 8.4 g/dL 8.3 g/dL Hematocrit 25.6 % 25.2 % Mean Corpuscular Volume 86.2 fL 87.2 fL Mean Corpuscular Hemoglobin 28.3 pg 28.7 pg Mean Corpuscular Hemoglobin Concent 32.8 g/dl 32.9 g/dl Platelet Count 217 K/uL 220 K/uL Mean Platelet Volume 8.2 fL 8.4 fL Neutrophils (%) (Auto) 64.8 % 47.6 % Lymphocytes (%) (Auto) 18.6 % 27.9 % Monocytes (%) (Auto) 8.4 % 14.1 % Eosinophils (%) (Auto) 7.1 % 8.2 % Basophils (%) (Auto) 0.1 % 0.2 % Neutrophils # (Auto) 4.39 K/uL 2.39 K/uL Lymphocytes # (Auto) 1.26 K/uL 1.40 K/uL Monocytes # (Auto) 0.57 K/uL 0.71 K/uL Eosinophils # (Auto) 0.48 K/uL 0.41 K/uL Basophils # (Auto) 0.01 K/uL 0.01 K/uL RDW Standard Deviation 42.6 fL 43.5 fL RDW Coefficient of Variation 13.5 % 13.6 % Immature Granulocyte % (Auto) 1.0 % 2.0 % Immature Granulocyte # (Auto) 0.07 K/uL 0.10 K/uL Red Blood Cell Morphology Unremarkable Unremarkable Sodium Level 139 mmol/L 140 mmol/L Potassium Level 4.4 mmol/L 4.2 mmol/L Chloride Level 103 mmol/L 104 mmol/L Carbon Dioxide Level 28 mmol/L 30 mmol/L Anion Gap 8.0 mmol/L 6.0 mmol/L Blood Urea Nitrogen 16 mg/dl 16 mg/dl Creatinine 1.30 mg/dl 1.20 mg/dl Est Creatinine Clear Calc Drug Dose 65.0 ml/min 70.5 ml/min Estimated GFR () 73.2 80.7 Estimated GFR (Non- 63.2 69.6 BUN/Creatinine Ratio 12.3 13.4 Random Glucose 100 mg/dl 111 mg/dl Calcium Level 8.5 mg/dl 8.2 mg/dl Bedside Glucose 112 mg/dl 176 mg/dl Test 01/27/17 07:58 01/27/17 12:06 Bedside Glucose 125 mg/dl 202 mg/dl Assessment & Plan Intrathecal pump leakage, MSSA and Acinetobacter Infection s/p I and D by pain management on 01/14/17 s/p repair 01/21/17 s/p picc line -- afebrile -- repeat CT noted -- (+) thick discharge from incision site noted -- currently on Vancomycin and Levaquin per ID -- called Dr. Hope's phone to inform of finding: CT spine ordered, fluid collection again seen on L2 spine consulted Dr. Gomez, likely from DuraSeal and Floseal repeat wound cultures: negative so far -- continue Vanco + Levaquin will discuss with ID re: antibiotics Pneumonia, L Lower Lobe with Parapneumonic Effusion -- repeat blood and urine culture: negative repeat Lumbar spine Drainage: MSSA - on antibiotics per # 1, ID consulted - Thoracentesis deferred for now Hemoptysis -- in the setting of pneumonia, effusion, lung CA --Pulm consulted s/p Bronchoscopy: no bronchial lesions, hemoptysis likely from granuloma lesion from middle turbinate -- no recurrence Vomiting -- known to have gastroparesis, s/p gastric pacemaker -- from underlying infections? -- improving -- PRN antiemetics if worsening, will re-consult GI Bilateral Lower Leg Edema -- Leg US to r/o DVT: negative -- edema worse today, Lasix 40mg IV ordered Ambulatory dysfunction: -- pt/ot Metastatic lung cancer. - The patient is currently no longer on chemo - Dr. Amanda consulted, plan to repeat CT chest in 3 months DM 2 -- currently on Lantus 15units bid and iss History of gastroparesis and on gastric pacemaker. CAT scan showed esophagitis. On PPI Consulted GI. s/p egd has reflux oesophagitis. bleeding scan was done which was unremarkable -- Gi recommends ppi bid and Carafate. Anemia -- s/p 2 units PRBC -- Hg stable at 8.4 History of hypertension. -- Continue amlodipine and Lopressor History of epilepsy. -- Continue Keppra. Currently stable. History of neurogenic bladder. Deep venous thrombosis prophylaxis -- SCDs for now. -- encouraged to ambulate DISPOSITION: Monitor in medical floor. pt/ot social service for d/c planning Current Inpatient Medications: Current Inpatient Medications Medications (Trade) Dose Ordered Sig/Cal Route Start Time Stop Time Status Last Admin Dose Admin Acetaminophen (Tylenol Tab) 650 mg Q4H PRN PO 01/14/17 09:15 02/13/17 09:14 01/26/17 13:42 650 MG Al Hydrox/Mg Hydrox/Simethicone (Maalox Max Susp) 15 ml Q4H PRN PO 01/14/17 09:15 02/13/17 09:14 Magnesium Hydroxide (Milk Of Magnesia Susp) 30 ml Q6H PRN PO 01/14/17 09:15 02/13/17 09:14 Ondansetron HCl (Zofran Inj) 4 mg Q6H PRN IV 01/14/17 09:15 02/13/17 09:14 01/26/17 16:49 4 MG Epinephrine (Epipen) 0.3 mg UD PRN IM 01/14/17 09:15 02/13/17 09:14 Folic Acid (Folvite Tab) 1 mg QAM PO 01/15/17 09:00 02/14/17 08:59 01/27/17 08:57 1 MG Levetiracetam (Keppra Tab) 750 mg BID PO 01/14/17 21:00 02/13/17 20:59 01/27/17 08:57 750 MG Magnesium Chloride (Slow-Mag Tab) 64 mg BID PO 01/14/17 21:00 02/13/17 20:59 01/27/17 08:57 64 MG Metoclopramide HCl (Reglan Tab) 10 mg ACHS PRN PO 01/14/17 09:15 02/13/17 09:14 01/27/17 07:32 10 MG Metoprolol Tartrate (Lopressor Tab) 25 mg BID PO 01/14/17 21:00 02/13/17 20:59 01/27/17 08:58 25 MG Promethazine HCl (Phenergan Supp) 25 mg Q4H PRN MO 01/14/17 09:15 02/13/17 09:14 Venlafaxine HCl (effeXOR EXTENDED REL CAP) 37.5 mg QAM PO 01/15/17 09:00 02/14/17 08:59 01/27/17 08:58 37.5 MG Multivitamins (Multivitamin Tab) 1 tab QAM PO 01/15/17 09:00 02/14/17 08:59 01/27/17 08:57 1 TAB Albuterol (Ventolin Hfa Inhaler) 2 puffs Q6H PRN INH 01/14/17 09:30 02/13/17 09:29 Gabapentin (Neurontin Tab) 600 mg TID PO 01/14/17 14:00 02/13/17 13:59 01/27/17 13:54 600 MG Glucose (Glucose 40% Gel) 15-30 GRAMS 15 GRAMS... UD PRN PO 01/14/17 10:00 02/13/17 09:59 Glucose (Glucose Chew Tab) 4-8 Tablets 4 Tabl... UD PRN PO 01/14/17 10:00 02/13/17 09:59 Dextrose (Dextrose 50% 50ML Syringe) 25-50ML OF 50% DW IV FOR... UD PRN IV 01/14/17 10:00 02/13/17 09:59 Glucagon (Glucagon Inj) 1 mg UD PRN SQ 01/14/17 10:00 02/13/17 09:59 Lorazepam (Ativan Tab) 1 mg TID PRN PO 01/15/17 17:30 02/14/17 17:29 01/22/17 21:43 1 MG Sucralfate (Carafate Susp) 1 gm QID PO 01/16/17 13:00 02/15/17 12:59 01/27/17 13:26 1 GM Daptomycin 500 mg/ Sodium Chloride 60 ml @ 100 mls/hr Q24H IV 01/17/17 14:00 02/28/17 13:59 Future Hold 01/19/17 14:08 100 MLS/HR Hydralazine HCl (HydrALAZINE INJ) 5 mg Q6 PRN IV. 01/17/17 15:30 02/16/17 15:29 01/26/17 23:41 5 MG Heparin Sodium (Porcine) (Heparin 10 Unit/ ml 5 ml Flush) 5 ml PRN PRN FLUSH 01/17/17 18:00 02/16/17 17:59 01/27/17 11:09 5 ML Sodium Chloride ([place] Nasal Raven) 1 sprays PRN PRN NA 01/18/17 06:30 02/17/17 06:29 Pantoprazole Sodium (Protonix Tab) 40 mg BID PO 01/18/17 21:00 02/17/17 20:59 01/27/17 08:57 40 MG Vancomycin HCl (Consult) 1 ea UD PRN N/A 01/19/17 17:15 02/18/17 17:14 Insulin Glargine (Lantus Solostar Pen) 15 units BID SC 01/20/17 09:00 02/13/17 20:59 01/27/17 09:09 15 UNITS Insulin Aspart (novoLOG ASPART) SLIDING SCALE G... ACHS SC 01/21/17 17:30 02/20/17 05:59 01/27/17 13:31 10 UNITS Hydromorphone HCl (Dilaudid Tab) 4 mg Q3H PRN PO 01/24/17 14:30 02/07/17 14:29 01/27/17 13:54 4 MG Lactobacillus Acidophilus (Floranex Tab) 4 tab TIDM PO 01/25/17 08:30 02/24/17 08:29 01/27/17 13:26 4 TAB Amlodipine Besylate (Norvasc Tab) 5 mg BID PO 01/25/17 09:00 02/24/17 08:59 01/27/17 08:59 5 MG Clonidine HCl (Catapres Tab) 0.1 mg Q4H PRN PO 01/25/17 02:15 02/24/17 02:14 01/25/17 04:53 0.1 MG Influenza Virus Vacc Triv Types A&B 1 ea PRN PRN N/A 01/25/17 14:15 02/24/17 14:14 Vancomycin HCl 1250 mg/Sodium Chloride 275 ml @ 125 mls/hr Q18H IV 01/26/17 02:00 01/29/27 01:59 01/27/17 13:53 125 MLS/HR Hydromorphone HCl (Dilaudid Inj) 0.5 mg Q8H PRN IV 01/26/17 16:00 02/08/17 19:59 01/26/17 21:05 0.5 MG Levofloxacin 500 mg/Prmx 100 ml @ 100 mls/hr Q24H IV 01/27/17 09:00 02/06/17 08:59 01/27/17 08:57 100 MLS/HR Metoclopramide HCl (Reglan Inj) 10 mg Q6H PRN IV 01/26/17 19:45 02/25/17 19:44 Ioversol (Optiray 320) 100 ml UD PRN IV 01/26/17 19:45 01/30/17 19:44 Levofloxacin (Consult) 1 ea UD PRN N/A 01/27/17 09:45 02/06/17 08:59
[2017-01-27] MEDS ORDERED: FUROSEMIDE INJ 40 MG in SYRINGE 0 ML IV ONE (16:00)
[2017-01-27] MEDS: METOCLOPRAMIDE HCL INJ 5 MG/ML 2 ML VIAL IV PRN (20:32)
[2017-01-27 23:00] VITALS: BP 171/99; PULSE 97; TEMP 36.8; O2SAT 90
[2017-01-28] MEDS: HYDROmorphone HCL 2 MG TAB PO PRN ×6 (00:25→21:53)
[2017-01-28] MEDS: HydrALAZINE HCL 20 MG/ML VIAL IV. PRN ×2 (00:26→08:03)
[2017-01-28 03:41] VITALS: BP 136/77
[2017-01-28 07:30] VITALS: BP 161/85; PULSE 95; TEMP 36.9; O2SAT 95
[2017-01-28] MEDS ORDERED: VANCOMYCIN TROUGH SCH (07:30)
[2017-01-28] MEDS: METOCLOPRAMIDE HCL INJ 5 MG/ML 2 ML VIAL IV PRN (08:04)
[2017-01-28 08:24] LABS: BUN/CREATININE RATIO 12.7 (10-20); CALCIUM 8.4 mg/dl (8.5-10.1); CREATININE 1.3 mg/dl (0.60-1.40); POTASSIUM 4.4 mmol/L (3.5-5.1)
[2017-01-28] MEDS: VANCOMYCIN INJ 1,250 MG in SODIUM CHLORIDE 0.9% 250ML 250 ML IV SCH (08:35)
[2017-01-28] MEDS: LACTOBACILLUS ACIDOPHILUS (FLORANEX) TAB PO SCH ×3 (08:44→17:54)
[2017-01-28] MEDS: INSULIN ASPART 100 UNITS/ML 3 ML PEN SC SCH ×5 (08:48→23:56)
[2017-01-28] MEDS ORDERED: PHARMACY GLYCEMIC MGMT CONSULT PRN (08:53)
--- NOTE | 2017-01-28 09:11 | Pain Management Progress Note ---
Pain Management Progress Note Date of Service Jan 28, 2017. Subjective Patient continues to report "pain all over". He finds the oral hydromorphone to be moderately effective for 2-3 hours. He continues to have back pain at the incisional site. The patient reported a significant amount of fluid draining from the wound last evening while ambulating in the hallway. Patient reports minimal headache which is not positional at this time. He denies fevers chills or night sweats. Patient indicates that he has been ambulating and feels slightly "unsteady on his feet". There is a potential plan for discharge to [facility] for short-term rehabilitative stay to improve gait stability. He denies further constitutional complaints at this time. Plan of care discussed with Dr. Idalia Hernandez Objective Vital Signs: Last Vital Signs Documentation Date Time Temp Pulse Resp B/P (MAP) Pulse Ox O2 Delivery O2 Flow Rate FiO2 01/28/17 07:30 36.9 95 18 161/85 (110) 95 Room Air 01/25/17 12:15 4.0 Physical Exam: Gen.: Patient standing, ambulating in room upon entering in no acute distress. Speech and thought process appropriate. Mood and affect appropriate. Cognition intact. Abdomen: Dressing removed for visual inspection with scant nickel-sized area of yellowish discharge. Incisional site appears well approximated. There is no active discharge upon visual inspection. He is nontender to palpation. Pump is stable. Back/spine: Dressing removed for visual inspection. Dressing was wet throughout. There was a yellowish tinged thin serous discharge present corresponding with the mid and inferior aspect of the incisional site. There appears to be some fluid collection persistent to the left side of the incisional site. Patient remains tender to palpation surrounding the incisional site. Neurologic: Cranial nerves grossly intact. Patient was ambulating in the room. Laboratory Laboratory Review: results personally reviewed by mt Laboratory Findings 01/27/17 05:35 Red Blood Count 2.89 L, Mean Corpuscular Volume 87.2, Mean Corpuscular Hemoglobin 28.7, Mean Corpuscular Hemoglobin Concent 32.9, Mean Platelet Volume 8.4, Neutrophils (%) (Auto) 47.6, Lymphocytes (%) (Auto) 27.9, Monocytes (%) ( Auto) 14.1, Eosinophils (%) (Auto) 8.2, Basophils (%) (Auto) 0.2, Neutrophils # (Auto) 2.39, Lymphocytes # (Auto) 1.40, Monocytes # (Auto) 0.71 H, Eosinophils # (Auto) 0.41, Basophils # (Auto) 0.[address]: non enhanced, reports reviewed CT Findings Patient: NIKHIL MARTINS Address1: [address] [place] [address] Rec: [id number] Address2: Acct ID: [id number] [facility] Zip: [place] [id number] Date: 1965 Sex: M Room/Bed: [facility] Ref Phy: Bran Burgess M.D. 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 Test: [employer] PUSHER Admit Phy: Aguila Saenz MD Cryptologic Technician Technical: ROSALEE Interpreting Phy: Danilo Langley MD Diagnosis: INTRACTABLE NAUSEA AND VOMITING, INTRATHECAL PUMP Ordering Phy: Antonino Car MD Service Date: 01/26/17 Admit Date: 01/14/1709/11/17 MNE: [id number] CONF: DICTATED BY: Danilo Langley M.D.]] CC: Bran Burgess M.D., Robin A., MD Endcc: [~ rep ct add3]] LUMBAR SPINE CT CT DOSE: 1216.13 mGy.cm HISTORY: Low back pain. r/o abscess TECHNIQUE: Multiaxial CT images of the lumbar spine were performed and reformatted in the sagittal and coronal plane without the use of contrast. A dose lowering technique was utilized adhering to the principles of ALARA. COMPARISON: Lumbar spine CT 01/24/2017. FINDINGS: No fracture or subluxation within the lumbar spine. Mild disc space narrowing at T11-T12. No endplate erosions identified. Evaluation of the central canal is essentially nondiagnostic due to the CT technique. Intrathecal catheter enters the L2-L3 interlaminar space and extends cephalad. The tip is not included on this study. Posterior to the L2 spinous process there is a thick-walled 5.5 x 4.9 x 2.5 cm subcutaneous fluid collection. This contains multiple loops of the catheter. This has slightly increased in size. Subcutaneous edema within the lumbar region persists. IMPRESSION: Slight increase in size in the thick-walled subcutaneous fluid collection within the lumbar region posterior to the L2 spinous process. This measures 5.5 x 4.9 x 2.5 cm and surrounds multiple loops of the intrathecal catheter. Therefore, this could represent an abscess or a persistent leak of the catheter. A postoperative seroma/hematoma could also have a similar appearance but is considered less likely given the slight increase in size. Electronically signed by: Danilo Langley M.D. 01/26/2017 11:20 PM Dictated Date/Time: 01/26/2017 11:02 PM The status of this report is Signed. Draft = Not yet reviewed or approved by Radiologist. Signed = Reviewed and approved by Radiologist. Assessment 1. Postoperative day 7 of incision and drainage of lumbar spine 1 with repair of CSF leak status post intrathecal catheter insertion 2. Chronic intractable neuropathic pain requiring implantation of intrathecal pump and catheter delivery system 3. Opioid dependency 4. History of metastatic lung cancer 5. Gastroparesis with history of gastric stimulator Recommendations 1. There were no adjustments made intrathecal pump at today's visit. Will continue to monitor use of oral hydromorphone and adjust pump accordingly to usage. 2. Will continue to monitor incisional site drainage. CT scan results reviewed as well as Dr. Gomez's recommendations. 3. Will continue to follow
[2017-01-28] MEDS: LEVOFLOXACIN / D5W 500 MG in PREMIXED IN D5W 100 ML IV SCH (09:48)
[2017-01-28] MEDS ORDERED: INSULIN GLARGINE SOLOSTAR 100 UNITS/ML 3 ML PEN SC SCH (10:00)
--- NOTE | 2017-01-28 10:02 | Pharmacy Progress Note ---
Glycemic Control Intl Consult Date of Service Jan 28, 2017. Scope Glycemic Pharmacist consulted by Dr Car on 01/28/17 for glycemic control and to write orders per [facility] inpatient glycemic control protocol Objective Weight (Kilograms): 78.200 Accuchecks BSG (last 24hrs): Test 01/27/17 12:06 01/27/17 15:54 01/27/17 16:13 01/27/17 16:27 Bedside Glucose 202 mg/dl (70-99) 48 mg/dl (70-99) 69 mg/dl (70-99) 86 mg/dl (70-99) Test 01/27/17 17:04 01/27/17 20:54 01/27/17 21:52 01/28/17 07:40 Bedside Glucose 135 mg/dl (70-99) 233 mg/dl (70-99) 275 mg/dl (70-99) Random Glucose 270 mg/dl (70-99) Laboratory Data (last 24hrs) Test 01/28/17 07:40 Anion Gap 6.0 mmol/L BUN/Creatinine Ratio 12.7 Blood Urea Nitrogen 17 mg/dl Creatinine 1.30 mg/dl Potassium Level 4.4 mmol/L Sodium Level 137 mmol/L HbA1c Test 01/19/17 22:15 Hemoglobin A1c 7.2 % (4.5-5.6) H Recent Pertinent Medications Outpatient Anti-diabetic Regimen: * Lantus 25 units SQ PM * NovoLog 5 units SQ AC The patient is currently receiving: * Basal insulin: Lantus 15 units every 12 hours --> d/c'ed 01/27 AM secondary to hypo * Correctional Insulin: Novolog Correction per scale ACHS Goal Range: Low 110 mg/dL - High 140 mg/dL Correction Factor: 25 mg/dL/unit * Prandial insulin: Per carb ratio of 1 unit per 7 grams CHO consumed Risk Factors for Insulin Resistance: * Infection * Diet Assessment & Plan ASSESSMENT: * 51yo T2DM male well known to pharmacy from previous admissions/glycemic consults * Pt with labile BSGs this admission, frequent hypo and hyperglycemia secondary to too much basal insulin and then held prandial coverage. * AM fasting BSG significantly elevated this AM at 290mg/dl because Lantus d/c yesterday after hypo in AM * Will restart reduced basal insulin dose and titrate based on BSG trends * ADA & AACE recommend a goal blood sugar range 140-180 mg/dl for the majority of critically ill & non-critically ill patients. However, more stringent targets may be selected in individual cases. Will utilize more stringent goal of 110-140mg/dl to facilitate wound/infection healing & for baseline tight glycemic control. PLAN FOR INPATIENT GLYCEMIC CONTROL: * Basal insulin * Lantus 10 units SQ BID * Bolus insulin: tighten parameters * NovoLog per scale ACHS or Q6hrs while NPO * Goal Range: Low 110 mg/dL - High 140 mg/dL * Correction Factor: 20 mg/dL/unit * Nutritional / Prandial insulin per carb ratio of 1 unit per 6 grams CHO consumed * Please note that the plan above was derived based on current level of insulin resistance and hospital stress. These recommendations are appropriate for inpatient admission only. Plan of care upon discharge will need to be reassessed to avoid potential outpatient hypo/hyperglycemia. Thank you.
[2017-01-28] MEDS: PANTOprazole SOD 40 MG TAB PO SCH ×2 (10:04→21:55)
[2017-01-28] MEDS: GABAPENTIN 600 MG TAB PO SCH ×3 (10:04→21:55)
[2017-01-28] MEDS: AMLODIPINE BESYLATE 5 MG TAB PO SCH ×2 (10:05→21:55)
[2017-01-28] MEDS: MULTIVITAMIN TAB PO SCH (10:05)
[2017-01-28] MEDS: METOPROLOL TARTRATE 25 MG TAB PO SCH ×2 (10:05→21:55)
[2017-01-28] MEDS: LEVETIRACETAM 250 MG TAB PO SCH ×2 (10:06→21:56)
[2017-01-28] MEDS: MAGNESIUM CHLORIDE 64MG DELAYED REL TAB PO SCH ×2 (10:06→21:56)
[2017-01-28] MEDS: SUCRALFATE 1 GM/10 ML UDC PO SCH ×4 (10:07→21:56)
[2017-01-28] MEDS: VENLAFAXINE HCL XR 37.5 MG CAPXR PO SCH (10:07)
--- NOTE | 2017-01-28 11:06 | Progress Note ---
Subjective Date of Service: Jan 28, 2017. Subjective pt working with PT afebrile. still with drainage. had ct spine and ortho eval. Ct showed increased size of thick walled collection at cath site, measuring 5.5x4.9x2.5. 01/21 O culture with MSSA, pt has been on multiple abx - dapto and then vanco. 01/26 culture negative to date. remain on levaquin as well. wbc nml. Problem List Medical Problems: (1) Acute kidney injury Status: Acute (2) Altered mental status Status: Acute (3) Anemia Status: Acute (4) Chronic pain Status: Acute (5) Dehydration Status: Acute (6) Dehydration Status: Acute (7) Dehydration Status: Acute (8) Dehydration Status: Acute (9) Diabetes mellitus with hyperglycemia Status: Acute (10) Failure of outpatient treatment Status: Acute (11) Hypomagnesemia Status: Acute (12) Hypomagnesemia Status: Acute (13) Intractable vomiting Status: Acute (14) Intractable vomiting Status: Acute (15) Intrathecal pump infection Status: Acute (16) Orthostatic hypotension Status: Acute (17) Vomiting Status: Acute (18) Vomiting Status: Acute Objective Vital Signs Date Time Temp Pulse Resp B/P (MAP) Pulse Ox O2 Delivery O2 Flow Rate FiO2 01/28/17 07:30 36.9 95 18 161/85 (110) 95 Room Air 01/28/17 07:15 Room Air 01/28/17 03:41 136/77 (96) 01/28/17 00:30 Room Air 01/27/17 23:00 36.8 97 18 171/99 (123) 90 Room Air 01/27/17 17:08 Room Air 01/27/17 15:02 37.1 94 18 127/68 (87) 94 Room Air Laboratory Results Item Value Date Time Gram Stain - Final Resulted 01/26/17 0000 Incision Site Back Gram Stain - Final Complete 01/21/17 0000 Drainage-Deep Lumbar Gram Stain - Final Complete 01/14/17 1400 Drainage-Deep Back Blood Culture - Final Complete 01/19/17 1444 Blood NO GROWTH Blood Culture - Final Complete 01/19/17 1436 Blood NO GROWTH Blood Culture - Final Complete 01/14/17 0929 Blood NO GROWTH Blood Culture - Final Complete 01/14/17 0911 Blood NO GROWTH Last 24 Hours Test 01/27/17 12:06 01/27/17 15:54 01/27/17 16:13 01/27/17 16:27 Bedside Glucose 202 mg/dl 48 mg/dl 69 mg/dl 86 mg/dl Test 01/27/17 17:04 01/27/17 20:54 01/27/17 21:52 01/28/17 07:40 Bedside Glucose 135 mg/dl 233 mg/dl 275 mg/dl Sodium Level 137 mmol/L Potassium Level 4.4 mmol/L Chloride Level 99 mmol/L Carbon Dioxide Level 32 mmol/L Anion Gap 6.0 mmol/L Blood Urea Nitrogen 17 mg/dl Creatinine 1.30 mg/dl Est Creatinine Clear Calc Drug Dose 65.0 ml/min Estimated GFR () 73.2 Estimated GFR (Non- 63.2 BUN/Creatinine Ratio 12.7 Random Glucose 270 mg/dl Calcium Level 8.4 mg/dl Vancomycin Level Trough 19.5 mcg/ml Test 01/28/17 07:51 Bedside Glucose 290 mg/dl Assessment and Plan (1) Intrathecal pump infection Assessment & Plan: will continue on vanco. stop levaquin at this time. He remains with persistent collection and + culture despite abx. remain concerned for infected collection, now slightly larger, doubt abx alone will cure. will continue vanco.
[2017-01-28] MEDS: ONDANSETRON INJ 2 MG/ML 2 ML VIAL IV PRN ×2 (12:16→21:52)
[2017-01-28 12:52] VITALS: BMI 26.2
[2017-01-28 15:10] VITALS: BP 118/69; PULSE 92; TEMP 36.8; O2SAT 94
--- NOTE | 2017-01-28 16:40 | Pharmacy Progress Note ---
Pharmacy Abx Dose Short Note Date of Service Jan 28, 2017. Assessment & Plan Assessment 51 year old male receiving Vancomycin for treatment of abscess surrounding intrathecal pump Plan Vancomycin * Trough level of 19.5 mcg/mL is therapeutic * Continue dose of 1250 mg IV every 18 hours * Plan to recheck level in 2-3 days to make sure he remains therapeutic Pharmacy will continue to follow and will adjust dose/frequency as necessary. Thank you.
[2017-01-28 17:12] VITALS: O2SAT 94
[2017-01-28] MEDS ORDERED: FUROSEMIDE INJ 40 MG in SYRINGE 0 ML IV SCH (17:13)
--- NOTE | 2017-01-28 17:16 | Progress Note ---
Medicine Progress Note Date & Time of Visit: Jan 28, 2017 at 17:16. Subjective seen sleeping, easily rousable states he feels about the same, back still "sore" vomited 1/2 of breakfast and lunch today, no abdominal pain leg swelling slightly improved denies other symptoms Objective Last 8 Hrs Date Time Temp Pulse Resp B/P (MAP) Pulse Ox O2 Delivery O2 Flow Rate FiO2 01/28/17 15:10 36.8 92 18 118/69 (85) 94 Room Air Physical Exam: General- oriented x 3, not in distress, speaks in sentences with no effort Eyes- anicteric Lungs-clear breath sounds bilaterally Heart- regular rhythm; no murmur, normal rate Abdomen- normal bowel sounds, soft, nontender Extremities- grade 1-2 lower leg edema, blister on the right and left lower leg ; no tenderness/erythema/warmth/swelling peripheral pulses intact Back- surgical incision site without dehiscence, (+) very scant white discharge , mild surrounding erythema with tenderness Neuro- alert, oriented x 3; no gross focal deficits Skin- warm & dry Laboratory Results: Last 24 Hours Test 01/27/17 20:54 01/27/17 21:52 01/28/17 07:40 01/28/17 07:51 Bedside Glucose 233 mg/dl 275 mg/dl 290 mg/dl Sodium Level 137 mmol/L Potassium Level 4.4 mmol/L Chloride Level 99 mmol/L Carbon Dioxide Level 32 mmol/L Anion Gap 6.0 mmol/L Blood Urea Nitrogen 17 mg/dl Creatinine 1.30 mg/dl Est Creatinine Clear Calc Drug Dose 65.0 ml/min Estimated GFR () 73.2 Estimated GFR (Non- 63.2 BUN/Creatinine Ratio 12.7 Random Glucose 270 mg/dl Calcium Level 8.4 mg/dl Vancomycin Level Trough 19.5 mcg/ml Test 01/28/17 12:04 Bedside Glucose 286 mg/dl Assessment & Plan Intrathecal pump leakage, MSSA and Acinetobacter Infection s/p I and D by pain management on 01/14/17 s/p repair 01/21/17 s/p picc line -- afebrile -- repeat CT noted -- (+) thick discharge from incision site noted -- called Dr. Hope's phone to inform of finding: CT spine ordered, fluid collection again seen on L2 spine consulted Dr. Gomez, likely from DuraSeal and Floseal repeat wound cultures: negative so far -- Vanco + Levaquin--> changed to Vanco IV only monitor response -- appreciate Pain Mgt, Ortho Spine and ID SVC recommendations Pneumonia, L Lower Lobe with Parapneumonic Effusion -- repeat blood and urine culture: negative repeat Lumbar spine Drainage: MSSA - on antibiotics per # 1, ID consulted - Thoracentesis deferred for now -- symptoms improved Hemoptysis -- in the setting of pneumonia, effusion, lung CA --Pulm consulted s/p Bronchoscopy: no bronchial lesions, hemoptysis likely from granuloma lesion from middle turbinate -- no recurrence Vomiting -- known to have gastroparesis, s/p gastric pacemaker -- from underlying infections? -- improving -- PRN antiemetics -- will discuss with GI Bilateral Lower Leg Edema -- Leg US to r/o DVT: negative -- Lasix 40mg IV BID Ambulatory dysfunction: -- pt/ot Metastatic lung cancer. - The patient is currently no longer on chemo - Dr. Amanda consulted, plan to repeat CT chest in 1 month per Pulmonary DM 2 -- pharmacy glycemic control ordered History of gastroparesis and on gastric pacemaker. CAT scan showed esophagitis. On PPI Consulted GI. s/p egd has reflux oesophagitis. bleeding scan was done which was unremarkable -- Gi recommends ppi bid and Carafate. Anemia -- s/p 2 units PRBC -- Hg stable at 8 History of hypertension. -- Continue amlodipine and Lopressor History of epilepsy. -- Continue Keppra. Currently stable. History of neurogenic bladder. Deep venous thrombosis prophylaxis -- SCDs for now. -- encouraged to ambulate DISPOSITION: Monitor in medical floor. pt/ot social service for d/c planning Current Inpatient Medications: Current Inpatient Medications Medications (Trade) Dose Ordered Sig/Cal Route Start Time Stop Time Status Last Admin Dose Admin Acetaminophen (Tylenol Tab) 650 mg Q4H PRN PO 01/14/17 09:15 02/13/17 09:14 01/26/17 13:42 650 MG Al Hydrox/Mg Hydrox/Simethicone (Maalox Max Susp) 15 ml Q4H PRN PO 01/14/17 09:15 02/13/17 09:14 Magnesium Hydroxide (Milk Of Magnesia Susp) 30 ml Q6H PRN PO 01/14/17 09:15 02/13/17 09:14 Ondansetron HCl (Zofran Inj) 4 mg Q6H PRN IV 01/14/17 09:15 02/13/17 09:14 01/28/17 12:16 4 MG Epinephrine (Epipen) 0.3 mg UD PRN IM 01/14/17 09:15 02/13/17 09:14 Folic Acid (Folvite Tab) 1 mg QAM PO 01/15/17 09:00 02/14/17 08:59 01/28/17 10:45 1 MG Levetiracetam (Keppra Tab) 750 mg BID PO 01/14/17 21:00 02/13/17 20:59 01/28/17 10:06 750 MG Magnesium Chloride (Slow-Mag Tab) 64 mg BID PO 01/14/17 21:00 02/13/17 20:59 01/28/17 10:06 64 MG Metoclopramide HCl (Reglan Tab) 10 mg ACHS PRN PO 01/14/17 09:15 02/13/17 09:14 01/27/17 07:32 10 MG Metoprolol Tartrate (Lopressor Tab) 25 mg BID PO 01/14/17 21:00 02/13/17 20:59 01/28/17 10:05 25 MG Promethazine HCl (Phenergan Supp) 25 mg Q4H PRN ND 01/14/17 09:15 02/13/17 09:14 Venlafaxine HCl (effeXOR EXTENDED REL CAP) 37.5 mg QAM PO 01/15/17 09:00 02/14/17 08:59 01/28/17 10:07 37.5 MG Multivitamins (Multivitamin Tab) 1 tab QAM PO 01/15/17 09:00 02/14/17 08:59 01/28/17 10:05 1 TAB Albuterol (Ventolin Hfa Inhaler) 2 puffs Q6H PRN INH 01/14/17 09:30 02/13/17 09:29 Gabapentin (Neurontin Tab) 600 mg TID PO 01/14/17 14:00 02/13/17 13:59 01/28/17 13:36 600 MG Glucose (Glucose 40% Gel) 15-30 GRAMS 15 GRAMS... UD PRN PO 01/14/17 10:00 02/13/17 09:59 01/27/17 15:42 30 GM Glucose (Glucose Chew Tab) 4-8 Tablets 4 Tabl... UD PRN PO 01/14/17 10:00 02/13/17 09:59 Dextrose (Dextrose 50% 50ML Syringe) 25-50ML OF 50% DW IV FOR... UD PRN IV 01/14/17 10:00 02/13/17 09:59 Glucagon (Glucagon Inj) 1 mg UD PRN SQ 01/14/17 10:00 02/13/17 09:59 Lorazepam (Ativan Tab) 1 mg TID PRN PO 01/15/17 17:30 02/14/17 17:29 01/22/17 21:43 1 MG Sucralfate (Carafate Susp) 1 gm QID PO 01/16/17 13:00 02/15/17 12:59 01/28/17 12:55 1 GM Hydralazine HCl (HydrALAZINE INJ) 5 mg Q6 PRN IV. 01/17/17 15:30 02/16/17 15:29 01/28/17 08:03 5 MG Heparin Sodium (Porcine) (Heparin 10 Unit/ ml 5 ml Flush) 5 ml PRN PRN FLUSH 01/17/17 18:00 02/16/17 17:59 01/28/17 12:11 5 ML Sodium Chloride (Smith Nasal [place]) 1 sprays PRN PRN NA 01/18/17 06:30 02/17/17 06:29 Pantoprazole Sodium (Protonix Tab) 40 mg BID PO 01/18/17 21:00 02/17/17 20:59 01/28/17 10:04 40 MG Vancomycin HCl (Consult) 1 ea UD PRN N/A 01/19/17 17:15 02/18/17 17:14 Insulin Aspart (novoLOG ASPART) SLIDING SCALE G... ACHS SC 01/21/17 17:30 02/20/17 05:59 01/28/17 12:53 22 UNITS Hydromorphone HCl (Dilaudid Tab) 4 mg Q3H PRN PO 01/24/17 14:30 02/07/17 14:29 01/28/17 15:41 4 MG Lactobacillus Acidophilus (Floranex Tab) 4 tab TIDM PO 01/25/17 08:30 02/24/17 08:29 01/28/17 12:43 4 TAB Amlodipine Besylate (Norvasc Tab) 5 mg BID PO 01/25/17 09:00 02/24/17 08:59 01/28/17 10:05 5 MG Clonidine HCl (Catapres Tab) 0.1 mg Q4H PRN PO 01/25/17 02:15 02/24/17 02:14 01/25/17 04:53 0.1 MG Influenza Virus Vacc Triv Types A&B 1 ea PRN PRN N/A 01/25/17 14:15 02/24/17 14:14 Vancomycin HCl 1250 mg/Sodium Chloride 275 ml @ 125 mls/hr Q18H IV 01/26/17 02:00 02/11/17 23:59 01/28/17 08:35 125 MLS/HR Hydromorphone HCl (Dilaudid Inj) 0.5 mg Q8H PRN IV 01/26/17 16:00 02/08/17 19:59 01/27/17 15:39 0.5 MG Metoclopramide HCl (Reglan Inj) 10 mg Q6H PRN IV 01/26/17 19:45 02/25/17 19:44 01/28/17 08:04 10 MG Ioversol (Optiray 320) 100 ml UD PRN IV 01/26/17 19:45 01/30/17 19:44 Miscellaneous Information (Consult Glycemic Management Pharmacy) 1 ea UD PRN N/A 01/28/17 08:53 02/27/17 08:52 Insulin Aspart (novoLOG ASPART) SLIDING SCALE G... TODAY@0000,0400 SC 01/29/17 00:00 01/29/17 04:01 Insulin Glargine (Lantus Solostar Pen) see protocol text BID SC 01/28/17 21:00 02/27/17 20:59
[2017-01-28] MEDS: HYDROmorphone INJ 0.5 MG/0.5 ML SYR IV PRN (18:51)
[2017-01-28] MEDS ORDERED: INSULIN REGULAR 8 UNITS in SYRINGE 7.92 ML IV ONE (21:30)
[2017-01-28 21:50] VITALS: BP 164/95; PULSE 96
[2017-01-28] MEDS: INSULIN GLARGINE SOLOSTAR 100 UNITS/ML 3 ML PEN SC SCH (21:57)
[2017-01-29] VITALS (8 sets, daily range): BP systolic 108–170; BP diastolic 66–95; PULSE 83–99; TEMP 36.6–37.1; O2SAT 92–100; Ht 172.7 cm; Wt 78.2 kg
[2017-01-29] MEDS: METOCLOPRAMIDE HCL INJ 5 MG/ML 2 ML VIAL IV PRN (00:09)
[2017-01-29] MEDS: HYDROmorphone INJ 0.5 MG/0.5 ML SYR IV PRN ×3 (01:06→23:23)
[2017-01-29] MEDS: VANCOMYCIN INJ 1,250 MG in SODIUM CHLORIDE 0.9% 250ML 250 ML IV SCH ×2 (02:20→20:36)
[2017-01-29] MEDS: INSULIN ASPART 100 UNITS/ML 3 ML PEN SC SCH ×5 (03:51→20:42)
[2017-01-29] MEDS: HYDROmorphone HCL 2 MG TAB PO PRN ×4 (04:17→19:26)
[2017-01-29 06:35] LABS: BUN/CREATININE RATIO 16.3 (10-20); CALCIUM 8.1 mg/dl (8.5-10.1); CREATININE 1.5 mg/dl (0.60-1.40); POTASSIUM 4.5 mmol/L (3.5-5.1)
[2017-01-29] MEDS: ONDANSETRON INJ 2 MG/ML 2 ML VIAL IV PRN ×2 (07:58→19:26)
[2017-01-29] MEDS: SUCRALFATE 1 GM/10 ML UDC PO SCH ×4 (09:26→20:37)
[2017-01-29] MEDS: INSULIN GLARGINE SOLOSTAR 100 UNITS/ML 3 ML PEN SC SCH ×2 (09:35→20:38)
[2017-01-29] MEDS: GABAPENTIN 600 MG TAB PO SCH ×3 (10:00→20:36)
[2017-01-29] MEDS: PANTOprazole SOD 40 MG TAB PO SCH ×2 (10:01→20:36)
[2017-01-29] MEDS: MAGNESIUM CHLORIDE 64MG DELAYED REL TAB PO SCH ×2 (10:01→20:37)
[2017-01-29] MEDS: AMLODIPINE BESYLATE 5 MG TAB PO SCH ×2 (10:01→20:36)
[2017-01-29] MEDS: METOPROLOL TARTRATE 25 MG TAB PO SCH ×2 (10:02→20:37)
[2017-01-29] MEDS: MULTIVITAMIN TAB PO SCH (10:02)
[2017-01-29] MEDS: VENLAFAXINE HCL XR 37.5 MG CAPXR PO SCH (10:03)
[2017-01-29] MEDS: LACTOBACILLUS ACIDOPHILUS (FLORANEX) TAB PO SCH ×3 (10:03→19:25)
[2017-01-29] MEDS: LEVETIRACETAM 250 MG TAB PO SCH ×2 (10:03→20:37)
[2017-01-29] MEDS: FUROSEMIDE INJ 40 MG in SYRINGE 0 ML IV SCH ×2 (10:04→17:21)
--- NOTE | 2017-01-29 10:41 | Pharmacy Progress Note ---
Glycemic Control Progress Note Date of Service Jan 29, 2017. Scope Glycemic Pharmacist consulted for glycemic control to write orders per [facility] inpatient glycemic control protocol. Objective Accuchecks BSG (last 24hrs): Test 01/28/17 12:04 01/28/17 17:14 01/28/17 20:51 01/28/17 23:45 Bedside Glucose 286 mg/dl (70-99) 334 mg/dl (70-99) 325 mg/dl (70-99) 76 mg/dl (70-99) Test 01/29/17 01:11 01/29/17 03:49 01/29/17 05:33 01/29/17 07:58 Bedside Glucose 72 mg/dl (70-99) 120 mg/dl (70-99) 172 mg/dl (70-99) Random Glucose 140 mg/dl (70-99) HbA1c: Test 01/19/17 22:15 Hemoglobin A1c 7.2 % (4.5-5.6) H Recent Pertinent Medications The patient is currently receiving: * Basal insulin: Lantus 10-13 units every 12 hours * Correctional Insulin: Novolog Correction per scale ACHS Goal Range: Low 110 mg/dL - High 140 mg/dL Correction Factor: 20 mg/dL/unit * Prandial insulin: Per carb ratio of 1 unit per 6 grams CHO consumed Outpatient Anti-Diabetic Meds Basal and Bolus insulin Assessment & Plan ASSESSMENT: * See progress note from 01/28/17 for more background info, in short: * Pt receiving SQ basal bolus insulin regimen for hyperglycemia secondary to baseline DM (outpatient regimen on hold),stress/infection, N/V * Patient is currently receiving an average of 94 units of insulin per day yesterday (up from 39 units the previous day) * 23 units of basal insulin * 63 units of prandial/correctional insulin * 8 units IV Regular insulin for BSG 325mg/dl * BSGs ranging 78 - 334 mg/dl over the past 24hrs * Changes needed to insulin regimen: no changes at this time, BSGs much improved since corrections in regimen yesterday with IV insulin * AM Fasting BSG = 140 mg/dl. This is at goal, no changes needed in basal regimen * Post-prandial BSGs are in range therefore no changes needed to CF/CR * Additional notes / comments: * RN reported that she did not cover the full amount of carbs in evening meals d/t N/V that was reported by patient, which resulted in BSGs in 300s. RN does not believe patient is actually vomiting and is reporting this so he can have IV pain meds instead of PO PLAN FOR INPATIENT GLYCEMIC CONTROL: * Basal insulin * Lantus SQ BID * 10 units for BSG < 180mg/dl * 13 units for BSG > 180mg/dl * Bolus insulin * NovoLog per scale ACHS or Q6hrs while NPO and overnight at 0000 and 0400 * Goal Range: Low 110 mg/dL - High 140 mg/dL * Correction Factor: 20 mg/dL/unit * Nutritional / Prandial insulin per carb ratio of 1 unit per 6 grams CHO consumed RECOMMENDATIONS FOR DISCHARGE: * A1c 7.2%, continue outpatient regimen * Please note that the plan above was derived based on current level of insulin resistance and hospital stress. These recommendations are appropriate for inpatient admission only. Plan of care upon discharge will need to be reassessed to avoid potential outpatient hypo/hyperglycemia. Thank you.
[2017-01-29] MEDS: HydrALAZINE HCL 20 MG/ML VIAL IV. PRN (11:13)
--- NOTE | 2017-01-29 12:25 | Pain Management Progress Note ---
Pain Management Progress Note Date of Service Jan 29, 2017. Subjective Patient continues to report "pain all over". No significant change in frequency or severity of pain. Use of oral Dilaudid of 24 mg in the past 24 hours similar to yesterday. He is reporting effectiveness of oral hydromorphone to be approximately 1.5-2 hours only. He denies change in location or characteristic of his typical pain. Patient is reporting no change in discharge from the incisional site based on dressing changes throughout yesterday afternoon. He continues to have pain in the incisional site. Patient did participate in PT yesterday and has been up ambulating around the room. He continues with nausea and occasional vomiting which is improving with less frequency. He denies constitutional complaints at this time. Plan of care discussed with Dr. Idalia Hernandez Objective Vital Signs: Last Vital Signs Documentation Date Time Temp Pulse Resp B/P (MAP) Pulse Ox O2 Delivery O2 Flow Rate FiO2 01/29/17 11:30 93 Room Air 01/29/17 11:05 37.1 99 17 170/74 (106) 01/28/17 17:12 Physical Exam: Gen.: Patient was ambulate in the room upon entering. He is able to transfer from standing to sitting and sitting to standing without limitation. Speech and thought process appropriate. Mood and affect appropriate. Cognition intact. Abdomen: Dressing removed for visual inspection with scant dime-sized area of yellowish discharge. Nontender to palpation. Incisional site is well approximated. No active discharge present. Back/spine: Dressing removed for visual inspection. Dressing was again what throughout with yellowish tinged thin serous discharge present corresponding with middle and inferior aspect of the incisional site similar to yesterday. Persistent evidence of fluid collection to the left side of the incisional site. He remains tender with a slightly hyperalgesic response surrounding the incisional site. Neurologic: Cranial nerves grossly intact. Laboratory Laboratory Findings 01/27/17 05:35 Red Blood Count 2.89 L, Mean Corpuscular Volume 87.2, Mean Corpuscular Hemoglobin 28.7, Mean Corpuscular Hemoglobin Concent 32.9, Mean Platelet Volume 8.4, Neutrophils (%) (Auto) 47.6, Lymphocytes (%) (Auto) 27.9, Monocytes (%) ( Auto) 14.1, Eosinophils (%) (Auto) 8.2, Basophils (%) (Auto) 0.2, Neutrophils # (Auto) 2.39, Lymphocytes # (Auto) 1.40, Monocytes # (Auto) 0.71 H, Eosinophils # (Auto) 0.41, Basophils # (Auto) 0.01 Assessment 1. Chronic intractable neuropathic pain requiring implantation of intrathecal pump and catheter delivery system 2. Postoperative day 8 of incision and drainage lumbar spine with repair of CSF leak status post intrathecal catheter insertion 3. Opiate dependency 4. History of metastatic lung cancer 5. Gastroparesis with history of gastric stimulator Recommendations 1. Intrathecal pump was increased by 5% at today's visit. Refer to pump print out for details. 2. Patient may continue with oral hydromorphone for when necessary breakthrough pain 3. Will continue to monitor the wound as there has been minimal supervisor policy change clerks the past few days
--- NOTE | 2017-01-29 13:17 | Progress Note ---
Progress Note Date of Service Jan 29, 2017. (Peggy Mathews CRNP) Progress Note Pt is a 51 y/o male, seen per primary hospitalist's request for re-evaluation of nausea, vomiting. He was previously seen by Dr. Chaves and LINDSAY Rangel 01/17 for coffee ground emesis. EGD done showed LA Grade D reflux esophagitis, food residue in stomach consistent w his gastroparesis. He had hx lung ca, s/p resection, chemo last dose in September. Hx of also gastric pacer placement for his gastroparesis. He was maintained on Protonix, Carafate, and also Reglan. Is still having nausea/vomiting w solid meals. Seen in room eating hamburger and fries - said he gets nauseated even with broth, so might as well eat something solid which he enjoys. He did have good response with Emend IV. In the past also had Emend PO Rx in outpt setting which helps but having poor insurance coverage for this. Labs, VS reviewed. Exam: AAOx3, in NAD CTA except diminished bases, no respiratory distress HRR, no murmur or gallops Abd soft, non tender, BS hypoactive. - Will add Emend 150mg IV x 1 dose today. May repeat as needed. - Continue current Protonix, Carafate, Reglan. - Recommended him to be on at least [place] consistency food but he refused - Pls call if new questions/concerns arise. (Peggy Mathews CRNP) Attg addendum: See midlevel noted. Pt with persistent n/v. Will give Emend, and try to get pacer interrogated. (Mahesh Avila M.D.)
[2017-01-29] MEDS ORDERED: FOSAPREPITANT DIMEGLUMINE INJ 150 MG in SODIUM CHLORIDE 0.9% 150ML 145 ML IV ONE (14:00)
--- NOTE | 2017-01-29 14:49 | Progress Note ---
Subjective Date of Service: Jan 29, 2017. Subjective Pt evaluation today including: conversation w/ patient, conversation w/ family , physical exam, chart review, lab review pt seen in followup, still with hill, worse, pain meds increased, pump infusion increased, little relief. no f/c. tolerating vanco. most recent back culture remains neagtive. states still leaking fluid. still with n/v. All remaining ros reviewed and are negative. Problem List Medical Problems: (1) Acute kidney injury Status: Acute (2) Altered mental status Status: Acute (3) Anemia Status: Acute (4) Chronic pain Status: Acute (5) Dehydration Status: Acute (6) Dehydration Status: Acute (7) Dehydration Status: Acute (8) Dehydration Status: Acute (9) Diabetes mellitus with hyperglycemia Status: Acute (10) Failure of outpatient treatment Status: Acute (11) Hypomagnesemia Status: Acute (12) Hypomagnesemia Status: Acute (13) Intractable vomiting Status: Acute (14) Intractable vomiting Status: Acute (15) Intrathecal pump infection Status: Acute (16) Orthostatic hypotension Status: Acute (17) Vomiting Status: Acute (18) Vomiting Status: Acute Objective Vital Signs Date Time Temp Pulse Resp B/P (MAP) Pulse Ox O2 Delivery O2 Flow Rate FiO2 01/29/17 11:30 93 Room Air 01/29/17 11:05 37.1 99 17 170/74 (106) 92 Room Air 01/29/17 07:34 36.8 93 16 164/74 (104) 95 Room Air 01/29/17 07:20 Room Air 01/29/17 00:00 37.0 95 16 115/70 (85) 96 Room Air 01/28/17 23:45 Room Air 01/28/17 21:50 96 164/95 (118) 01/28/17 17:12 94 Room Air 01/28/17 15:10 36.8 92 18 118/69 (85) 94 Room Air Physical Exam General Appearance: WD/WN, no apparent distress Eyes: normal inspection, EOMI Neck: supple Respiratory/Chest: lungs clear, normal breath sounds, no respiratory distress Cardiovascular: regular rate, rhythm, no edema Abdomen: soft Extremities: non-tender, no pedal edema Neurologic/Psychiatric: alert, oriented x 3 Skin: normal color, warm/dry, no rash Comments: dressing c/d/i. refused take down of binder due to pain Laboratory Results Item Value Date Time Gram Stain - Final Complete 01/26/17 0000 Incision Site Back Gram Stain - Final Complete 01/21/17 0000 Drainage-Deep Lumbar Gram Stain - Final Complete 01/14/17 1400 Drainage-Deep Back Last 24 Hours Test 01/28/17 17:14 01/28/17 20:51 01/28/17 23:45 01/29/17 01:11 Bedside Glucose 334 mg/dl 325 mg/dl 76 mg/dl 72 mg/dl Test 01/29/17 03:49 01/29/17 05:33 01/29/17 07:58 01/29/17 11:54 Bedside Glucose 120 mg/dl 172 mg/dl 214 mg/dl Sodium Level 138 mmol/L Potassium Level 4.5 mmol/L Chloride Level 102 mmol/L Carbon Dioxide Level 30 mmol/L Anion Gap 6.0 mmol/L Blood Urea Nitrogen 24 mg/dl Creatinine 1.50 mg/dl Est Creatinine Clear Calc Drug Dose 56.4 ml/min Estimated GFR () 61.6 Estimated GFR (Non- 53.1 BUN/Creatinine Ratio 16.3 Random Glucose 140 mg/dl Calcium Level 8.1 mg/dl Assessment and Plan (1) Intrathecal pump infection Assessment & Plan: will continue on vanco. He remains with persistent collection and + culture despite abx. remain concerned for infected collection, now slightly larger, doubt abx alone will cure. will continue vanco.
[2017-01-29] MEDS: METOCLOPRAMIDE HCL 10 MG TAB PO PRN (17:21)
[2017-01-30] MEDS: HYDROmorphone HCL 2 MG TAB PO PRN ×2 (00:59→15:59)
--- NOTE | 2017-01-30 04:50 | Progress Note ---
Medicine Progress Note Date & Time of Visit: Jan 30, 2017 at 04:44. delayed entry date of service 01/29/17 Subjective seen sleeping but easily rousable, not in distress back pain about the same denies cough, dyspnea still had nausea and vomiting today denies leg pain, but legs still swollen Objective Last 8 Hrs Date Time Temp Pulse Resp B/P (MAP) Pulse Ox O2 Delivery O2 Flow Rate FiO2 01/29/17 23:50 Room Air 01/29/17 23:11 36.6 83 16 108/66 (80) 97 Room Air Physical Exam: General- oriented x 3, not in distress, speaks in sentences with no effort Eyes- anicteric Lungs-clear BS BL Heart- regular rhythm; no murmur, normal rate Abdomen- normal bowel sounds, soft, nontender Extremities- grade 1-2 lower leg edema, blisters on the right and left lower leg ; no tenderness/warmth/swelling peripheral pulses intact Back- dressing in place, no discharge Neuro- alert, oriented x 3; no gross focal deficits Skin- warm & dry Laboratory Results: Last 24 Hours Test 01/29/17 05:33 01/29/17 07:58 01/29/17 11:54 01/29/17 17:02 Sodium Level 138 mmol/L Potassium Level 4.5 mmol/L Chloride Level 102 mmol/L Carbon Dioxide Level 30 mmol/L Anion Gap 6.0 mmol/L Blood Urea Nitrogen 24 mg/dl Creatinine 1.50 mg/dl Est Creatinine Clear Calc Drug Dose 56.4 ml/min Estimated GFR () 61.6 Estimated GFR (Non- 53.1 BUN/Creatinine Ratio 16.3 Random Glucose 140 mg/dl Calcium Level 8.1 mg/dl Bedside Glucose 172 mg/dl 214 mg/dl 282 mg/dl Test 01/29/17 20:30 01/30/17 04:44 Bedside Glucose 218 mg/dl Assessment & Plan Intrathecal pump leakage, MSSA and Acinetobacter Infection s/p I and D by pain management on 01/14/17 s/p repair 01/21/17 s/p picc line -- remains afebrile -- repeat CT noted 01/26: (+) collection of fluid -- (+) thick discharge from incision site noted -- called Dr. Hope's phone to inform of finding: CT spine ordered, fluid collection again seen on L2 spine consulted Dr. Gomez, likely from DuraSeal and Floseal repeat wound cultures: negative so far -- Vanco + Levaquin--> changed to Vanco IV only monitoring response -- appreciate Pain Mgt, Ortho Spine and ID SVC recommendations Pneumonia, L Lower Lobe with Parapneumonic Effusion -- repeat blood and urine culture: negative repeat Lumbar spine Drainage: MSSA - on antibiotics per # 1, ID consulted - Thoracentesis deferred for now -- symptoms improved Hemoptysis -- in the setting of pneumonia, effusion, lung CA --Pulm consulted s/p Bronchoscopy: no bronchial lesions, hemoptysis likely from granuloma lesion from middle turbinate -- no recurrence Vomiting -- known to have gastroparesis, s/p gastric pacemaker -- exacerbated by underlying infections? -- Emend started by GI monitor -- appreciate GI recommendations Bilateral Lower Leg Edema -- Leg US to r/o DVT: negative -- Lasix 40mg IV BID given hold for now as crea increased may need Lasix + albumin Ambulatory dysfunction: -- pt/ot Metastatic lung cancer. - The patient is currently no longer on chemo - Dr. Amanda consulted -- plan to repeat CT chest in 1 month per Pulmonary DM 2 -- pharmacy glycemic control ordered as patient was having hypoglycemia from not being able to keep food down monitor BSGs History of gastroparesis and on gastric pacemaker. CAT scan showed esophagitis. On PPI Consulted GI. s/p egd has reflux oesophagitis. bleeding scan was done which was unremarkable -- Gi recommends ppi bid and Carafate Emend added Anemia -- s/p 2 units PRBC -- Hg stable at 8 History of hypertension. -- Continue amlodipine and Lopressor History of epilepsy. -- Continue Keppra. Currently stable. History of neurogenic bladder. Deep venous thrombosis prophylaxis -- SCDs for now. -- encouraged to ambulate DISPOSITION: anticipate d/c to SNF when medically stable Current Inpatient Medications: Current Inpatient Medications Medications (Trade) Dose Ordered Sig/Cal Route Start Time Stop Time Status Last Admin Dose Admin Acetaminophen (Tylenol Tab) 650 mg Q4H PRN PO 01/14/17 09:15 02/13/17 09:14 01/26/17 13:42 650 MG Al Hydrox/Mg Hydrox/Simethicone (Maalox Max Susp) 15 ml Q4H PRN PO 01/14/17 09:15 02/13/17 09:14 Magnesium Hydroxide (Milk Of Magnesia Susp) 30 ml Q6H PRN PO 01/14/17 09:15 02/13/17 09:14 Ondansetron HCl (Zofran Inj) 4 mg Q6H PRN IV 01/14/17 09:15 02/13/17 09:14 01/29/17 19:26 4 MG Epinephrine (Epipen) 0.3 mg UD PRN IM 01/14/17 09:15 02/13/17 09:14 Folic Acid (Folvite Tab) 1 mg QAM PO 01/15/17 09:00 02/14/17 08:59 01/29/17 10:03 1 MG Levetiracetam (Keppra Tab) 750 mg BID PO 01/14/17 21:00 02/13/17 20:59 01/29/17 20:37 750 MG Magnesium Chloride (Slow-Mag Tab) 64 mg BID PO 01/14/17 21:00 02/13/17 20:59 01/29/17 20:37 64 MG Metoclopramide HCl (Reglan Tab) 10 mg ACHS PRN PO 01/14/17 09:15 02/13/17 09:14 01/29/17 17:21 10 MG Metoprolol Tartrate (Lopressor Tab) 25 mg BID PO 01/14/17 21:00 02/13/17 20:59 01/29/17 20:37 25 MG Promethazine HCl (Phenergan Supp) 25 mg Q4H PRN [place] 01/14/17 09:15 02/13/17 09:14 Venlafaxine HCl (effeXOR EXTENDED REL CAP) 37.5 mg QAM PO 01/15/17 09:00 02/14/17 08:59 01/29/17 10:03 37.5 MG Multivitamins (Multivitamin Tab) 1 tab QAM PO 01/15/17 09:00 02/14/17 08:59 01/29/17 10:02 1 TAB Albuterol (Ventolin Hfa Inhaler) 2 puffs Q6H PRN INH 01/14/17 09:30 02/13/17 09:29 Gabapentin (Neurontin Tab) 600 mg TID PO 01/14/17 14:00 02/13/17 13:59 01/29/17 20:36 600 MG Glucose (Glucose 40% Gel) 15-30 GRAMS 15 GRAMS... UD PRN PO 01/14/17 10:00 02/13/17 09:59 01/27/17 15:42 30 GM Glucose (Glucose Chew Tab) 4-8 Tablets 4 Tabl... UD PRN PO 01/14/17 10:00 02/13/17 09:59 Dextrose (Dextrose 50% 50ML Syringe) 25-50ML OF 50% DW IV FOR... UD PRN IV 01/14/17 10:00 02/13/17 09:59 Glucagon (Glucagon Inj) 1 mg UD PRN SQ 01/14/17 10:00 02/13/17 09:59 Lorazepam (Ativan Tab) 1 mg TID PRN PO 01/15/17 17:30 02/14/17 17:29 01/22/17 21:43 1 MG Sucralfate (Carafate Susp) 1 gm QID PO 01/16/17 13:00 02/15/17 12:59 01/29/17 20:37 1 GM Hydralazine HCl (HydrALAZINE INJ) 5 mg Q6 PRN IV. 01/17/17 15:30 02/16/17 15:29 01/29/17 11:13 5 MG Heparin Sodium (Porcine) (Heparin 10 Unit/ ml 5 ml Flush) 5 ml PRN PRN FLUSH 01/17/17 18:00 02/16/17 17:59 01/29/17 23:24 5 ML Sodium Chloride ([place] Nasal [place]) 1 sprays PRN PRN NA 01/18/17 06:30 02/17/17 06:29 Pantoprazole Sodium (Protonix Tab) 40 mg BID PO 01/18/17 21:00 02/17/17 20:59 01/29/17 20:36 40 MG Vancomycin HCl (Consult) 1 ea UD PRN N/A 01/19/17 17:15 02/18/17 17:14 Insulin Aspart (novoLOG ASPART) SLIDING SCALE G... ACHS SC 01/21/17 17:30 02/20/17 05:59 01/29/17 20:42 7 UNITS Hydromorphone HCl (Dilaudid Tab) 4 mg Q3H PRN PO 01/24/17 14:30 02/07/17 14:29 01/30/17 00:59 4 MG Lactobacillus Acidophilus (Floranex Tab) 4 tab TIDM PO 01/25/17 08:30 02/24/17 08:29 01/29/17 19:25 4 TAB Amlodipine Besylate (Norvasc Tab) 5 mg BID PO 01/25/17 09:00 02/24/17 08:59 01/29/17 20:36 5 MG Clonidine HCl (Catapres Tab) 0.1 mg Q4H PRN PO 01/25/17 02:15 02/24/17 02:14 01/25/17 04:53 0.1 MG Influenza Virus Vacc Triv Types A&B 1 ea PRN PRN N/A 01/25/17 14:15 02/24/17 14:14 Vancomycin HCl 1250 mg/Sodium Chloride 275 ml @ 125 mls/hr Q18H IV 01/26/17 02:00 02/11/17 23:59 01/29/17 20:36 125 MLS/HR Metoclopramide HCl (Reglan Inj) 10 mg Q6H PRN IV 01/26/17 19:45 02/25/17 19:44 01/29/17 00:09 10 MG Ioversol (Optiray 320) 100 ml UD PRN IV 01/26/17 19:45 01/30/17 19:44 Miscellaneous Information (Consult Glycemic Management Pharmacy) 1 ea UD PRN N/A 01/28/17 08:53 02/27/17 08:52 Insulin Glargine (Lantus Solostar Pen) see protocol text BID SC 01/28/17 21:00 02/27/17 20:59 01/29/17 20:38 16 UNITS Hydromorphone HCl (Dilaudid Inj) 0.5 mg Q6H PRN IV 01/28/17 17:30 02/08/17 19:59 01/29/17 23:23 0.5 MG Furosemide 40 mg/ Syringe 4 ml @ 4 mls/min BID17 IV 01/29/17 09:00 02/28/17 08:59 01/29/17 17:21 4 MLS/MIN
[2017-01-30] MEDS: ONDANSETRON INJ 2 MG/ML 2 ML VIAL IV PRN ×3 (05:38→21:32)
[2017-01-30] MEDS: HYDROmorphone INJ 0.5 MG/0.5 ML SYR IV PRN ×3 (05:39→21:33)
[2017-01-30 06:35] LABS: BLOOD UREA NITROGEN 34 mg/dl (7-18); BUN/CREATININE RATIO 21.3 (10-20); CALCIUM 8.1 mg/dl (8.5-10.1); CARBON DIOXIDE 31 mmol/L (21-32); CHLORIDE 101 mmol/L (98-107); GLUCOSE 227 mg/dl (70-99); SODIUM 137 mmol/L (136-145)
[2017-01-30 07:00] VITALS: BP 104/65; PULSE 83; TEMP 36.7; O2SAT 91
[2017-01-30 08:15] VITALS: O2SAT 91
[2017-01-30] MEDS: FUROSEMIDE INJ 40 MG in SYRINGE 0 ML IV SCH ×2 (08:29→17:13)
[2017-01-30] MEDS: LACTOBACILLUS ACIDOPHILUS (FLORANEX) TAB PO SCH ×3 (08:29→17:18)
[2017-01-30] MEDS: SUCRALFATE 1 GM/10 ML UDC PO SCH ×4 (08:30→21:48)
[2017-01-30] MEDS: MULTIVITAMIN TAB PO SCH (08:30)
[2017-01-30] MEDS: MAGNESIUM CHLORIDE 64MG DELAYED REL TAB PO SCH ×2 (08:31→21:51)
[2017-01-30] MEDS: LEVETIRACETAM 250 MG TAB PO SCH ×2 (08:31→21:45)
[2017-01-30] MEDS: VENLAFAXINE HCL XR 37.5 MG CAPXR PO SCH (08:31)
[2017-01-30 08:34] VITALS: BP 160/94; PULSE 90
[2017-01-30] MEDS: METOPROLOL TARTRATE 25 MG TAB PO SCH ×2 (08:35→21:49)
[2017-01-30] MEDS: GABAPENTIN 600 MG TAB PO SCH ×3 (08:35→21:47)
[2017-01-30] MEDS: AMLODIPINE BESYLATE 5 MG TAB PO SCH ×2 (08:35→21:48)
[2017-01-30] MEDS: PANTOprazole SOD 40 MG TAB PO SCH ×2 (08:36→21:48)
[2017-01-30] MEDS ORDERED: INSULIN GLARGINE SOLOSTAR 100 UNITS/ML 3 ML PEN SC SCH ×2 (09:00→21:00)
[2017-01-30] MEDS: INSULIN ASPART 100 UNITS/ML 3 ML PEN SC SCH ×4 (09:14→21:37)
--- NOTE | 2017-01-30 09:30 | Pain Management Progress Note ---
Pain Management Progress Note Date of Service Jan 30, 2017. Subjective Patient continues to report "pain all over". He reports no significant change from 5% increase in intrathecal hydromorphone. Patient has used less oral hydromorphone over the past 24 hours when compared to prior. He continues to describe incisional site related axial back pain as a pressure sensation. He denies change in location or characteristic of his chronic pain complaints. He denies any change in the discharge from the midline thoracolumbar incisional site over the past 24 hours. Patient continues with less nausea and vomiting compared to prior. He denies any further causes complaints. Plan of care discussed with Dr. Idalia Hernandez. Objective Vital Signs: Last Vital Signs Documentation Date Time Temp Pulse Resp B/P (MAP) Pulse Ox O2 Delivery O2 Flow Rate FiO2 01/30/17 08:34 90 160/94 (116) 01/30/17 07:00 36.7 18 91 Room Air 01/28/17 17:12 Physical Exam: Gen.: Patient sleeping upon entering the room. Patient was easily aroused. He was able to sit up and transfer out of the bed to standing without limitation or obvious discomfort. Back/spine: Dressing removed for visual inspection. There is no erythema surrounding the incisional site. Continues to have some edema in the left side of the wound similar to prior. Bandage was soaked with yellowish tinge thin serous discharge present corresponding with middle and inferior aspect of the incisional site similar yesterday. I was able to express clear fluid from the wound easily. He is moderately tender at this time. Abdomen: Minimal scant discharge present on right lower quadrant bandage. Pump site nontender. Neurologic: Cranial nerves grossly intact. Laboratory Laboratory Findings 01/27/17 05:35 Red Blood Count 2.89 L, Mean Corpuscular Volume 87.2, Mean Corpuscular Hemoglobin 28.7, Mean Corpuscular Hemoglobin Concent 32.9, Mean Platelet Volume 8.4, Neutrophils (%) (Auto) 47.6, Lymphocytes (%) (Auto) 27.9, Monocytes (%) ( Auto) 14.1, Eosinophils (%) (Auto) 8.2, Basophils (%) (Auto) 0.2, Neutrophils # (Auto) 2.39, Lymphocytes # (Auto) 1.40, Monocytes # (Auto) 0.71 H, Eosinophils # (Auto) 0.41, Basophils # (Auto) 0.01 Assessment 1. Chronic intractable neuropathic pain requiring implantation of intrathecal pump and catheter delivery system 2. Postoperative day 9 of incision and drainage of lumbar spine with repair of CSF leak status post intrathecal catheter insertion 3. Opiate dependency 4. History of metastatic lung cancer 5. Gastroparesis with history of gastric stimulator Recommendations 1. No adjustment made to her intrathecal dose at today's visit 2. Maintain or hydromorphone when necessary for breakthrough pain 3. Dressing change was completed-will continue to monitor moving forward.
--- NOTE | 2017-01-30 10:24 | Progress Note ---
Subjective Date of Service: Jan 30, 2017. Subjective 01/26 culture negative and final. remains on vanco, tolerating well. no fevers. blood cultures negative. Problem List Medical Problems: (1) Acute kidney injury Status: Acute (2) Altered mental status Status: Acute (3) Anemia Status: Acute (4) Chronic pain Status: Acute (5) Dehydration Status: Acute (6) Dehydration Status: Acute (7) Dehydration Status: Acute (8) Dehydration Status: Acute (9) Diabetes mellitus with hyperglycemia Status: Acute (10) Failure of outpatient treatment Status: Acute (11) Hypomagnesemia Status: Acute (12) Hypomagnesemia Status: Acute (13) Intractable vomiting Status: Acute (14) Intractable vomiting Status: Acute (15) Intrathecal pump infection Status: Acute (16) Orthostatic hypotension Status: Acute (17) Vomiting Status: Acute (18) Vomiting Status: Acute Objective Vital Signs Date Time Temp Pulse Resp B/P (MAP) Pulse Ox O2 Delivery O2 Flow Rate FiO2 01/30/17 08:34 90 160/94 (116) 01/30/17 07:00 36.7 83 18 104/65 (78) 91 Room Air 01/29/17 23:50 Room Air 01/29/17 23:11 36.6 83 16 108/66 (80) 97 Room Air 01/29/17 20:35 97 158/86 (110) 01/29/17 17:42 100 Room Air 01/29/17 15:45 36.7 95 18 164/95 (118) 96 Room Air 01/29/17 11:30 93 Room Air 01/29/17 11:05 37.1 99 17 170/74 (106) 92 Room Air Laboratory Results Item Value Date Time Gram Stain - Final Complete 01/26/17 0000 Incision Site Back Gram Stain - Final Complete 01/21/17 0000 Drainage-Deep Lumbar Gram Stain - Final Complete 01/14/17 1400 Drainage-Deep Back Last 24 Hours Test 01/29/17 11:54 01/29/17 17:02 01/29/17 20:30 01/30/17 05:20 Bedside Glucose 214 mg/dl 282 mg/dl 218 mg/dl Sodium Level 137 mmol/L Potassium Level mmol/L Chloride Level 101 mmol/L Carbon Dioxide Level 31 mmol/L Anion Gap 5.0 mmol/L Blood Urea Nitrogen 34 mg/dl Creatinine 1.60 mg/dl Est Creatinine Clear Calc Drug Dose 52.8 ml/min Estimated GFR () 57.0 Estimated GFR (Non- 49.2 BUN/Creatinine Ratio 21.3 Random Glucose 227 mg/dl Calcium Level 8.1 mg/dl Chemistry Specimen Hemolysis Test 01/30/17 08:22 Potassium Level 4.9 mmol/L Assessment and Plan (1) Intrathecal pump infection Assessment & Plan: will continue on vanco. He remains with persistent collection and + culture despite abx. remain concerned for infected collection, now slightly larger, doubt abx alone will cure. will continue vanco. Will need min 6 weeks IV abx. can continue with vanco at current dose to maintain trough 15-20. Will need weekly cbc, cmp, esr and vanco trough while on therapy. can follow with ID post d/c. If has worsening collection will likely require OR.
--- NOTE | 2017-01-30 12:34 | Progress Note ---
Progress Note Date of Service Jan 30, 2017. Progress Note Attempted to visit with pt at 2 separate occasions to f/u on his nausea and vomiting symptoms. Both times he appears to be sleeping, no signs of distress, changing positions. He did receive Emend IV yesterday. I spoke w his RN today who reports pt been asking for pain meds but not given due to being stuporous. He had complained of nausea but no vomiting noted. Hasn't had any breakfast today.
[2017-01-30] MEDS ORDERED: VANCOMYCIN TROUGH SCH (13:30)
--- NOTE | 2017-01-30 15:15 | Pharmacy Progress Note ---
Pharmacy Abx Dose Short Note Date of Service Jan 30, 2017. Assessment & Plan Assessment 51 year old male receiving vancomycin for treatment of MSSA lumbar infection Day # 14 of antimicrobial therapy. Plan Vancomycin * Trough level of 24.7 mcg/mL is supratherapeutic. (patient's kidney function has worsened) * Change to 1250 mg IV every 24 hours (represents a 25% reduction) * Goal trough level for cellulitis : ~15 mcg/mL * Trough ordered for: 02/01/17 prior to 1999 dose - may change based upon kidney function Pharmacy will continue to follow and will adjust dose/frequency as necessary. Thank you.
[2017-01-30 15:35] VITALS: BP 131/85; PULSE 87; TEMP 36.8; O2SAT 96
--- NOTE | 2017-01-30 20:34 | Progress Note ---
Subjective Date of Service: Jan 30, 2017. Subjective Pt evaluation today including: conversation w/ patient, physical exam, lab review, review of studies, review of inpatient medication list Saw/examined the patient in room 352 +nausea/vomiting this evening Eager to get home has PICC line in, aware of long-term abx. plan Problem List Medical Problems: (1) Acute kidney injury Status: Acute (2) Altered mental status Status: Acute (3) Anemia Status: Acute (4) Chronic pain Status: Acute (5) Dehydration Status: Acute (6) Dehydration Status: Acute (7) Dehydration Status: Acute (8) Dehydration Status: Acute (9) Diabetes mellitus with hyperglycemia Status: Acute (10) Failure of outpatient treatment Status: Acute (11) Hypomagnesemia Status: Acute (12) Hypomagnesemia Status: Acute (13) Intractable vomiting Status: Acute (14) Intractable vomiting Status: Acute (15) Intrathecal pump infection Status: Acute (16) Orthostatic hypotension Status: Acute (17) Vomiting Status: Acute (18) Vomiting Status: Acute Review of Systems Constitutional: + weakness, No fever, No chills Respiratory: No shortness of breath Cardiac: No chest pain Abdomen: + nausea, + vomiting, No pain, No diarrhea, No constipation, No GI bleeding Musculoskeletal: + joint pain Heme: No abnormal bleeding/bruising Medications Current Inpatient Medications Medications (Trade) Dose Ordered Sig/Cal Route Start Time Stop Time Status Last Admin Dose Admin Acetaminophen (Tylenol Tab) 650 mg Q4H PRN PO 01/14/17 09:15 02/13/17 09:14 01/26/17 13:42 650 MG Al Hydrox/Mg Hydrox/Simethicone (Maalox Max Susp) 15 ml Q4H PRN PO 01/14/17 09:15 02/13/17 09:14 Magnesium Hydroxide (Milk Of Magnesia Susp) 30 ml Q6H PRN PO 01/14/17 09:15 02/13/17 09:14 Ondansetron HCl (Zofran Inj) 4 mg Q6H PRN IV 01/14/17 09:15 02/13/17 09:14 01/30/17 12:42 4 MG Epinephrine (Epipen) 0.3 mg UD PRN IM 01/14/17 09:15 02/13/17 09:14 Folic Acid (Folvite Tab) 1 mg QAM PO 01/15/17 09:00 02/14/17 08:59 01/30/17 08:32 1 MG Levetiracetam (Keppra Tab) 750 mg BID PO 01/14/17 21:00 02/13/17 20:59 01/30/17 08:31 750 MG Magnesium Chloride (Slow-Mag Tab) 64 mg BID PO 01/14/17 21:00 02/13/17 20:59 01/30/17 08:31 64 MG Metoclopramide HCl (Reglan Tab) 10 mg ACHS PRN PO 01/14/17 09:15 02/13/17 09:14 01/29/17 17:21 10 MG Metoprolol Tartrate (Lopressor Tab) 25 mg BID PO 01/14/17 21:00 02/13/17 20:59 01/30/17 08:35 25 MG Promethazine HCl (Phenergan Supp) 25 mg Q4H PRN [place] 01/14/17 09:15 02/13/17 09:14 Venlafaxine HCl (effeXOR EXTENDED REL CAP) 37.5 mg QAM PO 01/15/17 09:00 02/14/17 08:59 01/30/17 08:31 37.5 MG Multivitamins (Multivitamin Tab) 1 tab QAM PO 01/15/17 09:00 02/14/17 08:59 01/30/17 08:30 1 TAB Albuterol (Ventolin Hfa Inhaler) 2 puffs Q6H PRN INH 01/14/17 09:30 02/13/17 09:29 Gabapentin (Neurontin Tab) 600 mg TID PO 01/14/17 14:00 02/13/17 13:59 01/30/17 13:34 600 MG Glucose (Glucose 40% Gel) 15-30 GRAMS 15 GRAMS... UD PRN PO 01/14/17 10:00 02/13/17 09:59 01/27/17 15:42 30 GM Glucose (Glucose Chew Tab) 4-8 Tablets 4 Tabl... UD PRN PO 01/14/17 10:00 02/13/17 09:59 Dextrose (Dextrose 50% 50ML Syringe) 25-50ML OF 50% DW IV FOR... UD PRN IV 01/14/17 10:00 02/13/17 09:59 Glucagon (Glucagon Inj) 1 mg UD PRN SQ 01/14/17 10:00 02/13/17 09:59 Lorazepam (Ativan Tab) 1 mg TID PRN PO 01/15/17 17:30 02/14/17 17:29 01/22/17 21:43 1 MG Sucralfate (Carafate Susp) 1 gm QID PO 01/16/17 13:00 02/15/17 12:59 01/30/17 17:12 1 GM Hydralazine HCl (HydrALAZINE INJ) 5 mg Q6 PRN IV. 01/17/17 15:30 02/16/17 15:29 01/29/17 11:13 5 MG Heparin Sodium (Porcine) (Heparin 10 Unit/ ml 5 ml Flush) 5 ml PRN PRN FLUSH 01/17/17 18:00 02/16/17 17:59 01/30/17 17:18 5 ML Sodium Chloride ([place] Nasal [place]) 1 sprays PRN PRN NA 01/18/17 06:30 02/17/17 06:29 Pantoprazole Sodium (Protonix Tab) 40 mg BID PO 01/18/17 21:00 02/17/17 20:59 01/30/17 08:36 40 MG Vancomycin HCl (Consult) 1 ea UD PRN N/A 01/19/17 17:15 02/18/17 17:14 Insulin Aspart (novoLOG ASPART) SLIDING SCALE G... ACHS SC 01/21/17 17:30 02/20/17 05:59 01/30/17 18:16 19 UNITS Hydromorphone HCl (Dilaudid Tab) 4 mg Q3H PRN PO 01/24/17 14:30 02/07/17 14:29 01/30/17 15:59 4 MG Lactobacillus Acidophilus (Floranex Tab) 4 tab TIDM PO 01/25/17 08:30 02/24/17 08:29 01/30/17 17:18 4 TAB Amlodipine Besylate (Norvasc Tab) 5 mg BID PO 01/25/17 09:00 02/24/17 08:59 01/30/17 08:35 5 MG Clonidine HCl (Catapres Tab) 0.1 mg Q4H PRN PO 01/25/17 02:15 02/24/17 02:14 01/25/17 04:53 0.1 MG Influenza Virus Vacc Triv Types A&B 1 ea PRN PRN N/A 01/25/17 14:15 02/24/17 14:14 Metoclopramide HCl (Reglan Inj) 10 mg Q6H PRN IV 01/26/17 19:45 02/25/17 19:44 01/29/17 00:09 10 MG Miscellaneous Information (Consult Glycemic Management Pharmacy) 1 ea UD PRN N/A 01/28/17 08:53 02/27/17 08:52 Hydromorphone HCl (Dilaudid Inj) 0.5 mg Q6H PRN IV 01/28/17 17:30 02/08/17 19:59 01/30/17 12:42 0.5 MG Furosemide 40 mg/ Syringe 4 ml @ 4 mls/min BID17 IV 01/29/17 09:00 02/28/17 08:59 01/30/17 17:13 4 MLS/MIN Insulin Glargine (Lantus Solostar Pen) 14 units BID SC 01/30/17 21:00 03/01/17 20:59 Vancomycin HCl 1250 mg/Sodium Chloride 275 ml @ 125 mls/hr Q24H IV 01/30/17 20:00 02/09/17 19:59 Insulin Aspart (novoLOG ASPART) SLIDING SCALE G... TODAY@0000,0400 [place] 01/31/17 00:00 01/31/17 04:01 Objective Vital Signs Date Time Temp Pulse Resp B/P (MAP) Pulse Ox O2 Delivery O2 Flow Rate FiO2 01/30/17 15:36 Room Air 01/30/17 15:35 36.8 87 18 131/85 (100) 96 Room Air 01/30/17 08:34 90 160/94 (116) 01/30/17 08:15 91 Room Air 01/30/17 07:00 36.7 83 18 104/65 (78) 91 Room Air 01/29/17 23:50 Room Air 01/29/17 23:11 36.6 83 16 108/66 (80) 97 Room Air 01/29/17 20:35 97 158/86 (110) Physical Exam General Appearance: + mild distress (secondary to pain and nausea) Respiratory/Chest: lungs clear, normal breath sounds, no respiratory distress, no accessory muscle use Cardiovascular: regular rate, rhythm, no edema, no murmur Laboratory Results Last 24 Hours Test 01/30/17 05:20 01/30/17 07:54 01/30/17 08:22 01/30/17 12:10 Sodium Level 137 mmol/L Potassium Level mmol/L 4.9 mmol/L Chloride Level 101 mmol/L Carbon Dioxide Level 31 mmol/L Anion Gap 5.0 mmol/L Blood Urea Nitrogen 34 mg/dl Creatinine 1.60 mg/dl Est Creatinine Clear Calc Drug Dose 52.8 ml/min Estimated GFR () 57.0 Estimated GFR (Non- 49.2 BUN/Creatinine Ratio 21.3 Random Glucose 227 mg/dl Calcium Level 8.1 mg/dl Chemistry Specimen Hemolysis Bedside Glucose 288 mg/dl 224 mg/dl Test 01/30/17 13:43 01/30/17 17:04 Vancomycin Level Trough 24.7 mcg/ml Bedside Glucose 198 mg/dl Assessment and Plan 01/30 Plan is to be on long-term antibiotics 6 weeks of IV Vancomycin PICC line in place d/c to [facility] as per GI plan to d/c and outpatient f/u with GI for gastric pacemaker f/u and setting adjustments Intrathecal pump leakage, MSSA and Acinetobacter Infection s/p I and D by pain management on 01/14/17 s/p repair 01/21/17 s/p picc line -- remains afebrile -- repeat CT noted 01/26: (+) collection of fluid -- (+) thick discharge from incision site noted -- called Dr. Hope's phone to inform of finding: CT spine ordered, fluid collection again seen on L2 spine consulted Dr. Gomez, likely from DuraSeal and Floseal repeat wound cultures: negative so far -- Vanco + Levaquin--> changed to Vanco IV only monitoring response -- appreciate Pain Mgt, Ortho Spine and ID SVC recommendations Pneumonia, L Lower Lobe with Parapneumonic Effusion -- repeat blood and urine culture: negative repeat Lumbar spine Drainage: MSSA - on antibiotics per # 1, ID consulted - Thoracentesis deferred for now -- symptoms improved Hemoptysis -- in the setting of pneumonia, effusion, lung CA --Pulm consulted s/p Bronchoscopy: no bronchial lesions, hemoptysis likely from granuloma lesion from middle turbinate -- no recurrence Vomiting -- known to have gastroparesis, s/p gastric pacemaker -- exacerbated by underlying infections? -- Emend started by GI monitor -- appreciate GI recommendations Bilateral Lower Leg Edema -- Leg US to r/o DVT: negative -- Lasix 40mg IV BID given hold for now as crea increased may need Lasix + albumin Ambulatory dysfunction: -- pt/ot Metastatic lung cancer. - The patient is currently no longer on chemo - Dr. Amanda consulted -- plan to repeat CT chest in 1 month per Pulmonary DM 2 -- pharmacy glycemic control ordered as patient was having hypoglycemia from not being able to keep food down monitor BSGs History of gastroparesis and on gastric pacemaker. CAT scan showed esophagitis. On PPI Consulted GI. s/p egd has reflux oesophagitis. bleeding scan was done which was unremarkable -- Gi recommends ppi bid and Carafate Emend added Anemia -- s/p 2 units PRBC -- Hg stable at 8 History of hypertension. -- Continue amlodipine and Lopressor History of epilepsy. -- Continue Keppra. Currently stable. History of neurogenic bladder. Deep venous thrombosis prophylaxis -- SCDs for now. -- encouraged to ambulate DISPOSITION: anticipate d/c to SNF when medically stable
[2017-01-30 20:51] VITALS: BP 110/70; PULSE 87
[2017-01-30] MEDS: VANCOMYCIN INJ 1,250 MG in SODIUM CHLORIDE 0.9% 250ML 250 ML IV SCH (21:39)
[2017-01-30 23:46] VITALS: BP 125/72; PULSE 79; TEMP 36.7; O2SAT 97
[2017-01-31] MEDS: INSULIN ASPART 100 UNITS/ML 3 ML PEN SC SCH ×5 (03:59→18:12)
[2017-01-31 05:47] LABS: HEMATOCRIT 24.2 % (42-52); MEAN CELL VOLUME 87.4 fL (80-100); MEAN CORPUSCULAR HEMOGLOBIN 28.9 pg (25-34); MEAN CORPUSCULAR HGB CONC 33.1 g/dl (32-36); MEAN PLATELET VOLUME 8.9 fL (7.4-10.4); PLATELET COUNT 213 K/uL (130-400); RED BLOOD COUNT 2.77 M/uL (4.7-6.1); WHITE BLOOD COUNT 5.66 K/uL (4.8-10.8)
[2017-01-31] MEDS: HYDROmorphone HCL 2 MG TAB PO PRN ×4 (06:01→20:35)
[2017-01-31 06:19] LABS: CALCIUM 7.9 mg/dl (8.5-10.1); CREATININE 1.6 mg/dl (0.60-1.40); POTASSIUM 4.5 mmol/L (3.5-5.1)
[2017-01-31 07:25] VITALS: O2SAT 95
[2017-01-31 07:34] VITALS: BP 127/71; PULSE 86; TEMP 36.9; O2SAT 94
[2017-01-31] MEDS: VENLAFAXINE HCL XR 37.5 MG CAPXR PO SCH (09:19)
[2017-01-31] MEDS: MULTIVITAMIN TAB PO SCH (09:19)
[2017-01-31] MEDS: METOPROLOL TARTRATE 25 MG TAB PO SCH (09:20)
[2017-01-31] MEDS: LACTOBACILLUS ACIDOPHILUS (FLORANEX) TAB PO SCH ×3 (09:20→18:05)
[2017-01-31] MEDS: SUCRALFATE 1 GM/10 ML UDC PO SCH ×3 (09:20→16:41)
[2017-01-31] MEDS: GABAPENTIN 600 MG TAB PO SCH ×2 (09:21→13:12)
[2017-01-31] MEDS: PANTOprazole SOD 40 MG TAB PO SCH (09:21)
[2017-01-31] MEDS: LEVETIRACETAM 250 MG TAB PO SCH (09:21)
[2017-01-31] MEDS: FUROSEMIDE INJ 40 MG in SYRINGE 0 ML IV SCH (09:21)
[2017-01-31] MEDS: AMLODIPINE BESYLATE 5 MG TAB PO SCH (09:23)
[2017-01-31] MEDS: MAGNESIUM CHLORIDE 64MG DELAYED REL TAB PO SCH (09:23)
--- NOTE | 2017-01-31 09:23 | Pain Management Progress Note ---
Pain Management Progress Note Date of Service Jan 31, 2017. Subjective Mr. Hamilton is a 51 year old white male that does report pain "all over." The pump incision along the RLQ abdomen is healing well. Patient reports an aching and fullness sensation in the thoracolumbar incision and states that the incision was draining a moderate amount yesterday that the dressing needed changed twice. He has not had any vomiting episodes today. He has used less oral Dilaudid since yesterday. Patient denies any constitutional complaints. Case discussed with Dr. Hernandez Objective Vital Signs: Last Vital Signs Documentation Date Time Temp Pulse Resp B/P (MAP) Pulse Ox O2 Delivery O2 Flow Rate FiO2 01/31/17 07:34 36.9 86 11 127/71 (89) 94 Nasal Cannula 2.0 Physical Exam: GENERAL: Patient is sleeping comfortably in the hospital bed upon arrival. Able to make positional changes without any obvious distress. BACK: Thoracolumbar dressing was removed. There is no erythema, redness, or warmth of the incision site. There is mild edema noted with thin serous discharge coming from the middle of the incision. Minimal yellow drainage on the dressing. ABDOMEN: Intrathecal pump is located in the right lower quadrant and is nontender. There is no erythema, drainage, or warmth coming from the incision. NEURO: Cranial nerves are grossly intact. Laboratory Laboratory Findings 01/31/17 05:19 Assessment 1. Chronic intractable neuropathic pain requiring implantation of intrathecal pump and catheter delivery system 2. Postoperative day 10 of incision and drainage of lumbar spine with repair of CSF leak status post intrathecal catheter insertion 3. Opiate dependency 4. History of metastatic lung cancer 5. Gastroparesis with history of gastric stimulator Recommendations 1. Dressings were changed. Will continue to monitor. 2. Continue to take oral Dilaudid for breakthrough pain. 3. No dosage changes were made to the intrathecal pump today.
[2017-01-31] MEDS: ONDANSETRON INJ 2 MG/ML 2 ML VIAL IV PRN ×2 (09:54→16:18)
[2017-01-31] MEDS ORDERED: INSULIN GLARGINE SOLOSTAR 100 UNITS/ML 3 ML PEN SC SCH ×2 (12:00→21:00)
--- NOTE | 2017-01-31 14:15 | Pharmacy Progress Note ---
Glycemic Control Progress Note Date of Service Jan 31, 2017. Scope Glycemic Pharmacist consulted for glycemic control to write orders per [facility] inpatient glycemic control protocol. Objective Accuchecks BSG (last 24hrs): Test 01/30/17 17:04 01/30/17 21:12 01/31/17 00:03 01/31/17 03:52 Bedside Glucose 198 mg/dl (70-99) 84 mg/dl (70-99) 114 mg/dl (70-99) 135 mg/dl (70-99) Test 01/31/17 05:19 01/31/17 10:05 01/31/17 12:06 01/31/17 12:20 Random Glucose 122 mg/dl (70-99) Bedside Glucose 281 mg/dl (70-99) 42 mg/dl (70-99) 64 mg/dl (70-99) Test 01/31/17 12:36 Bedside Glucose 77 mg/dl (70-99) HbA1c: Test 01/19/17 22:15 Hemoglobin A1c 7.2 % (4.5-5.6) H Recent Pertinent Medications Outpatient Anti-diabetic Regimen: * Lantus 25 units SQ PM * NovoLog 5 units SQ AC The patient is currently receiving: * Basal insulin: Lantus 14 units every 12 hours * Correctional Insulin: Novolog Correction per scale ACHS Goal Range: Low 110 mg/dL - High 140 mg/dL Correction Factor: 15 mg/dL/unit * Prandial insulin: Per carb ratio of 1 unit per 5 grams CHO consumed Risk Factors for Insulin Resistance: * Infection * Diet Outpatient Anti-Diabetic Meds Basal Insulin Bolus Insulin Assessment & Plan ASSESSMENT: * 51yo T2DM male well known to pharmacy from previous admissions/glycemic consults * Patient has been receiving ~ 85 units of insulin per day with near-adequate control * Pt with LOW BSG today prior to lunch secondary to incorrect breakfast coverage given --> BSG was taken at 1005 and was 281mg/dl, this was not a pre- meal BSG this is a post-prandial BSG as patient had already ate breakfast. Breakfast coverage was calc off of this artificially elevated BSG which caused pre-lunch LOW of 44mg/dl. Low treated with juice x 2 and then lunch tray when BSG 77. * Pt is currently receiving Lantus BID but takes Lantus daily at HS as an outpatient. Plan is to d/c soon, therefore, will start working Lantus back to HS dosing. PLAN FOR INPATIENT GLYCEMIC CONTROL: * Basal insulin * Lantus 20 units SQ x 1 dose with lunch and then 5 units at bedtime. Then, resume outpatient dosing of Lantus 25 units SQ PM (dinner) starting tomorrow, followed by Lantus 25 units SQ HS on 02/02. * Bolus insulin: * NovoLog per scale ACHS or Q6hrs while NPO * Goal Range: Low 110 mg/dL - High 140 mg/dL * Correction Factor: 15 mg/dL/unit * Nutritional / Prandial insulin per carb ratio of 1 unit per 5 grams CHO consumed * Please note that the plan above was derived based on current level of insulin resistance and hospital stress. These recommendations are appropriate for inpatient admission only. Plan of care upon discharge will need to be reassessed to avoid potential outpatient hypo/hyperglycemia. Thank you.
[2017-01-31] MEDS ORDERED: VANC1INJ IV (16:05)
[2017-01-31] MEDS ORDERED: INSDGI SC (16:07)
[2017-01-31 16:18] VITALS: BP 128/72; PULSE 86; O2SAT 95
[2017-01-31] MEDS: HYDROmorphone INJ 0.5 MG/0.5 ML SYR IV PRN (16:19)
--- NOTE | 2017-01-31 16:43 | Progress Note ---
Subjective Date of Service: Jan 31, 2017. Subjective Pt evaluation today including: conversation w/ patient, physical exam, lab review, review of studies, review of inpatient medication list Saw/examined the patient in room 352 - hallway outside the room He is doing okay, pain seems under control Nausea still present, vomiting less Wants to go to rehab, but knows he is denied, so he is agreeable for the plan to go home Problem List Medical Problems: (1) Acute kidney injury Status: Acute (2) Altered mental status Status: Acute (3) Anemia Status: Acute (4) Chronic pain Status: Acute (5) Dehydration Status: Acute (6) Dehydration Status: Acute (7) Dehydration Status: Acute (8) Dehydration Status: Acute (9) Diabetes mellitus with hyperglycemia Status: Acute (10) Failure of outpatient treatment Status: Acute (11) Hypomagnesemia Status: Acute (12) Hypomagnesemia Status: Acute (13) Intractable vomiting Status: Acute (14) Intractable vomiting Status: Acute (15) Intrathecal pump infection Status: Acute (16) Orthostatic hypotension Status: Acute (17) Vomiting Status: Acute (18) Vomiting Status: Acute Review of Systems Constitutional: No fever, No chills Respiratory: No shortness of breath Cardiac: No chest pain Abdomen: No pain, No nausea, No vomiting, No diarrhea Medications Current Inpatient Medications Medications (Trade) Dose Ordered Sig/Cal Route Start Time Stop Time Status Last Admin Dose Admin Acetaminophen (Tylenol Tab) 650 mg Q4H PRN PO 01/14/17 09:15 02/13/17 09:14 01/26/17 13:42 650 MG Al Hydrox/Mg Hydrox/Simethicone (Maalox Max Susp) 15 ml Q4H PRN PO 01/14/17 09:15 02/13/17 09:14 Magnesium Hydroxide (Milk Of Magnesia Susp) 30 ml Q6H PRN PO 01/14/17 09:15 02/13/17 09:14 Ondansetron HCl (Zofran Inj) 4 mg Q6H PRN IV 01/14/17 09:15 02/13/17 09:14 01/31/17 09:54 4 MG Epinephrine (Epipen) 0.3 mg UD PRN IM 01/14/17 09:15 02/13/17 09:14 Folic Acid (Folvite Tab) 1 mg QAM PO 01/15/17 09:00 02/14/17 08:59 01/31/17 09:19 1 MG Levetiracetam (Keppra Tab) 750 mg BID PO 01/14/17 21:00 02/13/17 20:59 01/31/17 09:21 750 MG Magnesium Chloride (Slow-Mag Tab) 64 mg BID PO 01/14/17 21:00 02/13/17 20:59 01/31/17 09:23 64 MG Metoclopramide HCl (Reglan Tab) 10 mg ACHS PRN PO 01/14/17 09:15 02/13/17 09:14 01/29/17 17:21 10 MG Metoprolol Tartrate (Lopressor Tab) 25 mg BID PO 01/14/17 21:00 02/13/17 20:59 01/31/17 09:20 25 MG Promethazine HCl (Phenergan Supp) 25 mg Q4H PRN [place] 01/14/17 09:15 02/13/17 09:14 Venlafaxine HCl (effeXOR EXTENDED REL CAP) 37.5 mg QAM PO 01/15/17 09:00 02/14/17 08:59 01/31/17 09:19 37.5 MG Multivitamins (Multivitamin Tab) 1 tab QAM PO 01/15/17 09:00 02/14/17 08:59 01/31/17 09:19 1 TAB Albuterol (Ventolin Hfa Inhaler) 2 puffs Q6H PRN INH 01/14/17 09:30 02/13/17 09:29 Gabapentin (Neurontin Tab) 600 mg TID PO 01/14/17 14:00 02/13/17 13:59 01/31/17 13:12 600 MG Glucose (Glucose 40% Gel) 15-30 GRAMS 15 GRAMS... UD PRN PO 01/14/17 10:00 02/13/17 09:59 01/27/17 15:42 30 GM Glucose (Glucose Chew Tab) 4-8 Tablets 4 Tabl... UD PRN PO 01/14/17 10:00 02/13/17 09:59 Dextrose (Dextrose 50% 50ML Syringe) 25-50ML OF 50% DW IV FOR... UD PRN IV 01/14/17 10:00 02/13/17 09:59 Glucagon (Glucagon Inj) 1 mg UD PRN SQ 01/14/17 10:00 02/13/17 09:59 Lorazepam (Ativan Tab) 1 mg TID PRN PO 01/15/17 17:30 02/14/17 17:29 01/22/17 21:43 1 MG Sucralfate (Carafate Susp) 1 gm QID PO 01/16/17 13:00 02/15/17 12:59 01/31/17 13:11 1 GM Hydralazine HCl (HydrALAZINE INJ) 5 mg Q6 PRN IV. 01/17/17 15:30 02/16/17 15:29 01/29/17 11:13 5 MG Heparin Sodium (Porcine) (Heparin 10 Unit/ ml 5 ml Flush) 5 ml PRN PRN FLUSH 01/17/17 18:00 02/16/17 17:59 01/31/17 09:56 5 ML Sodium Chloride ([place] Nasal [place]) 1 sprays PRN PRN NA 01/18/17 06:30 02/17/17 06:29 Pantoprazole Sodium (Protonix Tab) 40 mg BID PO 01/18/17 21:00 02/17/17 20:59 01/31/17 09:21 40 MG Vancomycin HCl (Consult) 1 ea UD PRN N/A 01/19/17 17:15 02/18/17 17:14 Insulin Aspart (novoLOG ASPART) SLIDING SCALE G... ACHS SC 01/21/17 17:30 02/20/17 05:59 01/31/17 13:06 5 UNITS Hydromorphone HCl (Dilaudid Tab) 4 mg Q3H PRN PO 01/24/17 14:30 02/07/17 14:29 01/31/17 13:11 4 MG Lactobacillus Acidophilus (Floranex Tab) 4 tab TIDM PO 01/25/17 08:30 02/24/17 08:29 01/31/17 13:12 4 TAB Amlodipine Besylate (Norvasc Tab) 5 mg BID PO 01/25/17 09:00 02/24/17 08:59 01/31/17 09:23 5 MG Clonidine HCl (Catapres Tab) 0.1 mg Q4H PRN PO 01/25/17 02:15 02/24/17 02:14 01/25/17 04:53 0.1 MG Influenza Virus Vacc Triv Types A&B 1 ea PRN PRN N/A 01/25/17 14:15 02/24/17 14:14 Metoclopramide HCl (Reglan Inj) 10 mg Q6H PRN IV 01/26/17 19:45 02/25/17 19:44 01/29/17 00:09 10 MG Miscellaneous Information (Consult Glycemic Management Pharmacy) 1 ea UD PRN N/A 01/28/17 08:53 02/27/17 08:52 Hydromorphone HCl (Dilaudid Inj) 0.5 mg Q6H PRN IV 01/28/17 17:30 02/08/17 19:59 01/30/17 21:33 0.5 MG Vancomycin HCl 1250 mg/Sodium Chloride 275 ml @ 125 mls/hr Q24H IV 01/30/17 20:00 02/09/17 19:59 01/30/17 21:39 125 MLS/HR Insulin Glargine (Lantus Solostar Pen) 5 units 01/31/17 SC 01/31/17 21:00 01/31/17 21:01 Insulin Glargine (Lantus Solostar Pen) 25 units [facility] 02/01/17 17:00 03/03/17 16:59 Objective Vital Signs Date Time Temp Pulse Resp B/P (MAP) Pulse Ox O2 Delivery O2 Flow Rate FiO2 01/31/17 07:34 36.9 86 11 127/71 (89) 94 Nasal Cannula 2.0 01/31/17 07:25 95 Nasal Cannula 3.0 01/30/17 23:55 Room Air 01/30/17 23:46 36.7 79 16 125/72 (89) 97 Room Air 01/30/17 20:51 87 110/70 (83) Physical Exam General Appearance: no apparent distress, + pertinent finding (seated in a rolling, seated walker - post-surgical changes to the lip) ENT: hearing grossly normal Respiratory/Chest: no respiratory distress, no accessory muscle use Cardiovascular: regular rate, rhythm Abdomen: non tender, soft, + abnormal bowel sounds Extremities: normal inspection, no pedal edema Laboratory Results Last 24 Hours Test 01/30/17 17:04 01/30/17 21:12 01/31/17 00:03 01/31/17 03:52 Bedside Glucose 198 mg/dl 84 mg/dl 114 mg/dl 135 mg/dl Test 01/31/17 05:19 01/31/17 10:05 01/31/17 12:06 01/31/17 12:20 White Blood Count 5.66 K/uL Red Blood Count 2.77 M/uL Hemoglobin 8.0 g/dL Hematocrit 24.2 % Mean Corpuscular Volume 87.4 fL Mean Corpuscular Hemoglobin 28.9 pg Mean Corpuscular Hemoglobin Concent 33.1 g/dl RDW Standard Deviation 43.3 fL RDW Coefficient of Variation 13.4 % Platelet Count 213 K/uL Mean Platelet Volume 8.9 fL Sodium Level 138 mmol/L Potassium Level 4.5 mmol/L Chloride Level 101 mmol/L Carbon Dioxide Level 30 mmol/L Anion Gap 7.0 mmol/L Blood Urea Nitrogen 35 mg/dl Creatinine 1.60 mg/dl Est Creatinine Clear Calc Drug Dose 52.8 ml/min Estimated GFR () 57.0 Estimated GFR (Non- 49.2 BUN/Creatinine Ratio 22.0 Random Glucose 122 mg/dl Calcium Level 7.9 mg/dl Bedside Glucose 281 mg/dl 42 mg/dl 64 mg/dl Test 01/31/17 12:36 Bedside Glucose 77 mg/dl Assessment and Plan 01/31 plan is to d/c home with home health (insurance denied rehab/SNF stay) will d/c with IV Vancomycin for 6 weeks outpatient f/u with GI for gastric pacemaker f/u and setting adjustments 01/30 Plan is to be on long-term antibiotics 6 weeks of IV Vancomycin PICC line in place d/[facility] to [facility] as per GI plan to d/c and outpatient f/u with GI for gastric pacemaker f/u and setting adjustments Intrathecal pump leakage, MSSA and Acinetobacter Infection s/p I and D by pain management on 01/14/17 s/p repair 01/21/17 s/p picc line -- remains afebrile -- repeat CT noted 01/26: (+) collection of fluid -- (+) thick discharge from incision site noted -- called Dr. Hope's phone to inform of finding: CT spine ordered, fluid collection again seen on L2 spine consulted Dr. Gomez, likely from DuraSeal and Floseal repeat wound cultures: negative so far -- Vanco + Levaquin--> changed to Vanco IV only monitoring response -- appreciate Pain Mgt, Ortho Spine and ID SVC recommendations Pneumonia, L Lower Lobe with Parapneumonic Effusion -- repeat blood and urine culture: negative repeat Lumbar spine Drainage: MSSA - on antibiotics per # 1, ID consulted - Thoracentesis deferred for now -- symptoms improved Hemoptysis -- in the setting of pneumonia, effusion, lung CA --Pulm consulted s/p Bronchoscopy: no bronchial lesions, hemoptysis likely from granuloma lesion from middle turbinate -- no recurrence Vomiting -- known to have gastroparesis, s/p gastric pacemaker -- exacerbated by underlying infections? -- Emend started by GI monitor -- appreciate GI recommendations Bilateral Lower Leg Edema -- Leg US to r/o DVT: negative -- Lasix 40mg IV BID given hold for now as crea increased may need Lasix + albumin Ambulatory dysfunction: -- pt/ot Metastatic lung cancer. - The patient is currently no longer on chemo - Dr. Amanda consulted -- plan to repeat CT chest in 1 month per Pulmonary DM 2 -- pharmacy glycemic control ordered as patient was having hypoglycemia from not being able to keep food down monitor BSGs History of gastroparesis and on gastric pacemaker. CAT scan showed esophagitis. On PPI Consulted GI. s/p egd has reflux oesophagitis. bleeding scan was done which was unremarkable -- Gi recommends ppi bid and Carafate Emend added Anemia -- s/p 2 units PRBC -- Hg stable at 8 History of hypertension. -- Continue amlodipine and Lopressor History of epilepsy. -- Continue Keppra. Currently stable. History of neurogenic bladder. Deep venous thrombosis prophylaxis -- SCDs for now. -- encouraged to ambulate DISPOSITION: anticipate d/c to SNF when medically stable
--- NOTE | 2017-01-31 16:47 | Discharge Instructions ---
Discharge Instructions Date of Service Jan 31, 2017. Admission Reason for Admission: Intractable Nausea And Vomiting, Intrathecal Pump Discharge Discharge Diagnosis / Problem: Intractable nausea/vomiting/ gastroparesis; intrathecal pump infection Discharge Goals Goal(s): Decrease discomfort, Improve function, Diagnostic testing, Therapeutic intervention Activity Recommendations Activity Limitations: resume your previous activity . Instructions / Follow-Up Instructions / Follow-Up Please follow-up with Dr. Borjas on February 06 at 2:15PM You will be on IV Vancomycin for at least 6 weeks Current Hospital Diet Patient's current hospital diet: Diabetes Type 2 Diet, Low Fiber Diet Discharge Diet Recommended Diet: Diabetes Type 2 Diet, Low Fiber Diet Procedures Procedures Performed: Incision and Drainage of Lumbar wound with repair of CSF leak application of duraseal Pending Studies Studies pending at discharge: no Laboratory Results Hemoglobin A1c Test 01/19/17 22:15 Range/Units Estimated Average Glucose 160 mg/dl Hemoglobin A1c 7.2 H 4.5-5.6 % Medical Emergencies . Who to Call and When: Medical Emergencies: If at any time you feel your situation is an emergency, please call 911 immediately. . Non-Emergent Contact Non-Emergency issues call your: Primary Care Provider . . "Provider Documentation" section prepared by Navya Barfield. . Automatic Outsole Cutter Recommendations Automatic Outsole Cutter Recommendations: At this time pulmonary service will sign off. This patient's changes on CT as well as left-sided pleural effusion should be monitored. He does have a left lower lobe 5 mm nodule but also requires monitoring as he has recently resection of an adenocarcinoma. He did have hemoptysis which eventually was noted to be epistaxis so no further monitoring for hemoptysis is necessary at this time. The patient should be seen in the pulmonary Department 4-6 weeks after discharge with repeat noncontrast CT at that time. VTE Core Measure Inpt VTE Proph given/why not?: SCD's
[2017-01-31 16:53] VITALS: BP 128/72; PULSE 86; TEMP 36.9; O2SAT 95
--- NOTE | 2017-01-31 16:53 | Discharge Summary ---
Discharge Summary Date of Service Jan 31, 2017. Discharge Summary Admission Date: Jan 14, 2017 at 09:22 Discharge Date: Jan 31, 2017 Discharge Disposition: Home Principal Diagnosis: Intrathecal pump Infection/Leakage intractable nausea/vomiting - gastroparesis Medication Reconciliation New Medications: Vancomycin HCl in Sodium Chlor (Vancomycin Hydrochloride/ 1.25-0.9 gm/250Ml-%) 1 Inj Inj 1250 MG IV DAILY for 42 Days, ML Changed Medications: Insulin Glargine (Lantus) 100 Unit/Ml Inj 20 UNITS SC QPM for 30 Days, #5 VIAL (Changed from: 25 UNITS) Continued Medications: Acetaminophen (Tylenol) 325 Mg Tab 650 MG PO TID PRN for Pain Albuterol Hfa (Ventolin Hfa) 200 Puffs/75854 Mcg Aers 2 PUFFS INH Q6H PRN for SOB/Wheezing, #1 INHALER Amlodipine (Norvasc) 10 Mg Tab 5 MG PO QAM, #30 TAB Aspirin (Aspirin Ec) 81 Mg Tab 81 MG PO QAM Epinephrine (Epipen) 0.3 Mg/0.3 Ml Inj 0.3 MG IM UD PRN for ALLERGIC REACTION Folic Acid (Folvite) 1 Mg Tab 1 TAB PO QAM for 90 Days, #90 TAB 1 Refill Gabapentin (Neurontin) 600 Mg Tab 1 TAB PO TID for 30 Days, #90 TAB 3 Refills Hydromorphone Hcl (Dilaudid) 2 Mg Tab 8 MG PO Q8 PRN for Pain, TAB Insulin Aspart (Novolog) 100 Units/Ml Inj 5 UNITS SC ACHS SLIDING SCALE PER Levetiracetam (Keppra) 750 Mg Tab 750 MG PO BID, TAB Magnesium Chloride (Slow-Mag Tab) 64 Mg Tabcr 64 MG PO BID, TAB Metoclopramide Hcl (Reglan) 10 Mg Tab 10 MG PO ACHS PRN for Nausea, TAB Metoprolol Tartrate (Lopressor) (Lopressor) 25 Mg Tab 25 MG PO BID, TAB Multiple Vitamin (Multivitamins) 1 Cap Cap 1 CAP PO QAM Ondansetron (Ondansetron HCl) 4 Mg Tab 8 MG PO Q8 PRN for Nausea Pantoprazole (Protonix) 40 Mg Tab 40 MG PO QAM Promethazine Hcl (Phenergan Suppository) 25 Mg Supp 25 MG ID Q4H PRN for Nausea or Vomiting Venlafaxine Hcl (Effexor Xr) 37.5 Mg Cap 37.5 MG PO QAM for 30 Days, #30 CAP Admission Information HPI (per Admitting provider): DATE OF ADMISSION: 01/14/2017 CHIEF COMPLAINT: Leaky pain pump. HISTORY OF PRESENT ILLNESS: This is a 51-year-old male with past medical history significant for malignant neoplasm of the upper lobe of the left lung status post chemo, diabetes, diabetic gastroparesis, status post gastric pacemaker, history of hypertension, epilepsy, neurogenic bladder, neuropathy, who was recently in December of this year status post implantation of intrathecal pump for his chronic intractable pain from his metastatic lung cancer, comes because of leaking at the incision site. The patient says since the discharge, it was leaking a little bit, but for the last couple of days, it was leaking a lot and also having significant pain, so he came to the ER. He denies any fever, but says he has some chills and last night, he was having lot of nausea and vomiting. He vomited several times. Denies any abdominal pain, no constipation, on and off diarrhea, no blood in the stools, no blood in the urine. Normal bladder movements. Appetite was okay until this episode happened. No chest pain, no shortness of breath, no cough. No abdominal pain. He has occasional headaches, no blurred visions. Currently resting comfortably and hemodynamically stable. ALLERGIES: TO PENICILLINS AND BEE STINGS. PAST MEDICAL HISTORY: As mentioned above. PAST SURGICAL HISTORY: Colonoscopy, EGDs, knee arthroscopy, tonsillectomy, adenoidectomy, lymphadenectomy via thoracoscopy, placement of the pain pump. MEDICATIONS: The patient is on hydromorphone 8 mg p.o. q. 8 hours p.r.n., albuterol two puffs every 4 hours p.r.n., insulin sliding scale, Lantus 25 units at bedtime, Protonix 40 mg p.o. daily, Effexor XR 37.5 mg p.o. daily, Zofran 8 mg p.o. t.i.d. p.r.n., folic acid 1 mg p.o. daily, Reglan 10 mg p.o. ac and at bedtime p.r.n., amlodipine 5 mg p.o. daily, Keppra 750 mg p.o. b.i.d., metoprolol 25 mg p.o. b.i.d., Phenergan 25 mg p.o. q. 4 hours p.r.n., magnesium chloride 64 mg p.o. b.i.d., Flonase 2 sprays in to each nostril daily, dexamethasone prior to chemotherapy, gabapentin 600 mg p.o. t.i.d., Tylenol 1000 mg p.o. t.i.d., epinephrine p.r.n. allergic reaction, multivitamins p.o. daily, aspirin 81 mg p.o. daily. FAMILY HISTORY: Significant for father has diabetes. Mother had diabetes. Sister has renal cell carcinoma, aunt has bilateral lung transplant, cancer. SOCIAL HISTORY: , former smoker, quit in 2000. Smoked half pack a day for 2 years. No alcohol use. No drug use. REVIEW OF SYMPTOMS: As per HPI. Rest of review of symptoms negative. PHYSICAL EXAMINATION: GENERAL: The patient is of moderate build, not in distress. VITAL SIGNS: Temperature 36.9, pulse 89, respiratory rate 18, blood pressure 173/104, oxygen 98% on room air. HEENT: No pallor, no icterus. Pupils equal, round react to light. NECK: No JVD, no neck masses, no carotid bruits. CARDIOVASCULAR: S1, S2 heard, regular rate and rhythm, no murmur, no gallop. RESPIRATORY SYSTEM: Clear to auscultation. No accessory muscle use. No wheezing, no crackles. ABDOMEN: Soft, bowel sounds present. Nontender. No distention. CENTRAL NERVOUS SYSTEM: Cranial nerves II-XII are grossly intact. Nonfocal. MUSCULOSKELETAL: Lumbar spinal incision sites show mild drainage and tender to palpation. EXTREMITIES: No edema, no erythema. LABORATORY DATA: WBC 5.7, hemoglobin 10.8, hematocrit 30.5, platelets 246. Sodium 133, potassium 3.3, chloride 91, bicarb 36, BUN 12, creatinine 1.4, serum glucose 101. Lactic acid 0.9, total calcium 9.5, total bilirubin 0.3, AST 16, ALT 13, alkaline phosphatase 91, lipase 47. PT 11.4, INR 1.1, PTT 25. Urinalysis pending. IMAGING DATA: Lumbar spine CT shows multilevel disc bulges with mild spinal stenosis at L2-L3, L3-L4, and L4-L5 levels. Intrathecal catheter, which enters the spinal canal at the L2-L3 level, posterolateral to L3 spinous process 32 x 22 x 18 mm fluid collection. The catheter traverses the fluid collection. Diagnostic considerations include, post-surgical seroma, abscess or catheter leakage. No change in the appearance of the 7 mm faintly opaque foreign body within the subcutaneous soft tissue at the L2-L3 level and the midline small left pleural effusion. CT scan of the abdomen and pelvis shows rim enhancing 8 cm fluid collection from the implanted device in the right ventricular abdominal wall consistent with abscess. Rim enhancing lesion also surrounds the lead throughout the course along the right lateral abdominal wall and intra upper lumbar region. Focal two cm abscess in the left paraspinal musculature and marked circumferential bladder wall thickening. This could suggest neurogenic bladder, or severe chronic outlet obstruction possibly due to prostatomegaly. Apparent circumferential distal esophageal wall thickening. This could suggest esophagitis, if clinically warranted fluoroscopy upper GI exam could be obtained for further evaluation. ASSESSMENT AND PLAN: This is a 51-year-old male who presents with leaking from the intrathecal pump. 1. Intrathecal pump leakage, seroma versus abscess at L3 level. Pain management is going to take to operation room and do incision and drainage. We will empirically start on IV vancomycin. We will follow the cultures. Currently, the patient is hemodynamically stable and has no fevers, and no white count. Monitor on the medical floor, and place him on fluids. 2. Chronic pain syndrome from the metastatic lung cancer. We will place him on IV Dilaudid p.r.n. pain management on board. 3. Metastatic lung cancer. The patient is currently no longer on chemo and is going to see Dr. Amanda next week for further plan of care. 4. History of diabetes. We will cut back on Lantus to 15 units, at home he is on 25 units at bedtime and I will place him on insulin sliding scale. We will follow the blood sugars. 5. History of gastroparesis and on gastric pacemaker. Currently, having nausea and vomiting and CAT scan showed esophagitis. We will place him on IV Protonix and will consult GI when patient is more stable. 6. History of hypertension. Continue amlodipine and Lopressor. We will monitor the blood pressure. 7. History of epilepsy. Continue Keppra. Currently stable. 8. History of neurogenic bladder. We will monitor. 9. Deep venous thrombosis prophylaxis, SCDs for now. DISPOSITION: Admit to medical floor. Expect to discharge home and follow with family doctor. Level 1 full code. Hospital Course 01/31 plan is to d/c home with home health (insurance denied rehab/SNF stay) will d/c with IV Vancomycin for 6 weeks outpatient f/u with GI for gastric pacemaker f/u and setting adjustments 01/30 Plan is to be on long-term antibiotics 6 weeks of IV Vancomycin PICC line in place d/c to [facility] Emend as per GI plan to d/c and outpatient f/u with GI for gastric pacemaker f/u and setting adjustments Intrathecal pump leakage, MSSA and Acinetobacter Infection s/p I and D by pain management on 01/14/17 s/p repair 01/21/17 s/p picc line -- remains afebrile -- repeat CT noted 01/26: (+) collection of fluid -- (+) thick discharge from incision site noted -- called Dr. Hope's phone to inform of finding: CT spine ordered, fluid collection again seen on L2 spine consulted Dr. Gomez, likely from DuraSeal and Floseal repeat wound cultures: negative so far -- Vanco + Levaquin--> changed to Vanco IV only monitoring response -- appreciate Pain Mgt, Ortho Spine and ID SVC recommendations Pneumonia, L Lower Lobe with Parapneumonic Effusion -- repeat blood and urine culture: negative repeat Lumbar spine Drainage: MSSA - on antibiotics per # 1, ID consulted - Thoracentesis deferred for now -- symptoms improved Hemoptysis -- in the setting of pneumonia, effusion, lung CA --Pulm consulted s/p Bronchoscopy: no bronchial lesions, hemoptysis likely from granuloma lesion from middle turbinate -- no recurrence Vomiting -- known to have gastroparesis, s/p gastric pacemaker -- exacerbated by underlying infections? -- Emend started by GI monitor -- appreciate GI recommendations Bilateral Lower Leg Edema -- Leg US to r/o DVT: negative -- Lasix 40mg IV BID given hold for now as crea increased may need Lasix + albumin Ambulatory dysfunction: -- pt/ot Metastatic lung cancer. - The patient is currently no longer on chemo - Dr. Amanda consulted -- plan to repeat CT chest in 1 month per Pulmonary DM 2 -- pharmacy glycemic control ordered as patient was having hypoglycemia from not being able to keep food down monitor BSGs History of gastroparesis and on gastric pacemaker. CAT scan showed esophagitis. On PPI Consulted GI. s/p egd has reflux oesophagitis. bleeding scan was done which was unremarkable -- Gi recommends ppi bid and Carafate Emend added Anemia -- s/p 2 units PRBC -- Hg stable at 8 History of hypertension. -- Continue amlodipine and Lopressor History of epilepsy. -- Continue Keppra. Currently stable. History of neurogenic bladder. Deep venous thrombosis prophylaxis -- SCDs for now. -- encouraged to ambulate DISPOSITION: anticipate d/c to SNF when medically stable Total time spent on discharge = 40 minutes This includes examination of the patient, discharge planning, medication reconciliation, and communication with other providers. Discharge Instructions Please follow-up with Dr. Borjas on February 06 at 2:15PM You will be on IV Vancomycin for at least 6 weeks
[2017-01-31] MEDS: VANCOMYCIN INJ 1,250 MG in SODIUM CHLORIDE 0.9% 250ML 250 ML IV SCH (18:03)
[2017-02-01] MEDS ORDERED: INSULIN GLARGINE SOLOSTAR 100 UNITS/ML 3 ML PEN SC SCH (17:00)
[2017-02-01] MEDS ORDERED: VANCOMYCIN TROUGH SCH (19:30)
[2017-02-01] MEDS ORDERED: INSDGI SC (21:34)
[2017-02-01] MEDS ORDERED: VNTHFA/IN INH (21:34)
[2017-02-01] MEDS ORDERED: AMLO-110 PO (21:34)
[2017-02-01] MEDS ORDERED: NRN600 PO (21:35)
== END 2017-01-31 21:55 | disposition home health service (06) | DRG 28 ==
LOC: C.EDB 05:13 → C.MSW 09:22 → ENRESERV 09:52
PROVIDERS: ADMIT Internal Medicine; ATTEND Internal Medicine
PROC: 00W Central Nervous System and Cranial Nerves, Revision (ICD-10-PCS; principal; 2017-01-14 09:30)
PROC: 0DJ08ZZ Inspection of Upper Intestinal Tract, Via Natural or Artificial Opening Endoscopic (ICD-10-PCS; 2017-01-17)
PROC: 02HV33Z Insertion of Infusion Device into Superior Vena Cava, Percutaneous Approach (ICD-10-PCS; 2017-01-17)
PROC: 00QT0ZZ Repair Spinal Meninges, Open Approach (ICD-10-PCS; 2017-01-21)
PROC: 0B9J8ZX Drainage of Left Lower Lung Lobe, Via Natural or Artificial Opening Endoscopic, Diagnostic (ICD-10-PCS; 2017-01-25)
DX: T85.738A Infection and inflammatory reaction due to other nervous system device, implant or graft, initial encounter (principal); A41.9 Sepsis, unspecified organism; J18.9 Pneumonia, unspecified organism; G97.0 Cerebrospinal fluid leak from spinal puncture; C34.90 Malignant neoplasm of unspecified part of unspecified bronchus or lung; F11.20 Opioid dependence, uncomplicated; K92.1 Melena; R04.2 Hemoptysis; T85.620A Displacement of cranial or spinal infusion catheter, initial encounter; K21.0 Gastro-esophageal reflux disease with esophagitis; G89.3 Neoplasm related pain (acute) (chronic); E11.43 Type 2 diabetes mellitus with diabetic autonomic (poly)neuropathy; I10 Essential (primary) hypertension; G40.909 Epilepsy, unspecified, not intractable, without status epilepticus; B95.61 Methicillin susceptible Staphylococcus aureus infection as the cause of diseases classified elsewhere; D64.9 Anemia, unspecified; R26.9 Unspecified abnormalities of gait and mobility; R60.0 Localized edema; Z79.4 Long term (current) use of insulin; Z79.82 Long term (current) use of aspirin; Z79.899 Other long term (current) drug therapy; Y82.8 Other medical devices associated with adverse incidents; Z83.3 Family history of diabetes mellitus; Z96.89 Presence of other specified functional implants; Z87.891 Personal history of nicotine dependence; Z80.51 Family history of malignant neoplasm of kidney; Z92.3 Personal history of irradiation

== ENCOUNTER 2017-02-01 20:41 | Inpatient (IN) | payer OTHER ==
[~2017-02-01] VITALS: Ht 172.7 cm; Wt 96.1 kg
[~2017-02-01 20:41] MED LIST changes: +NRN/600 PO; +VANC1INJ IV; +VNTHFA/IN INH
--- NOTE | 2017-02-01 21:31 | EMERGENCY ROOM VISIT NOTE ---
History Report prepared by Nedra: Norma Reina Under the Supervision of: Dr. Rodrigo Kuhn M.D. First contact with patient: 21:03 Chief Complaint: WOUND INFECTION Stated Complaint: LEAKING FROM BACK INCISION Nursing Triage Summary: Pt has incision to mid lower back from multiple surgeries from implant placement. Pt reports "I have a Dilaudid pump going into my spinal cord." Pt reports significant clear drainage from incision over the last 24 hours. Pt discharged from here last night on IV abx. Headache and blurred vision since last night. Fluid leaking from nose since last night. History of Present Illness The patient is a 51 year old male who presents to the Emergency Room with complaints of a wound infection from his back today. The patient states that he was diagnosed with lung cancer in May, and that he has a catheter for pain management. Per his family, the patient's catheter was revised in his spine 5 days ago. Two days ago, the patient reports having a CT done which showed fluid collection along the catheter site. The patient reports that yesterday it felt as if something popped and that his back was leaking. He also reports having a headache beginning yesterday that lasted into today. The patient also reports having a runny nose, nausea, and vomiting. Per the patient, his home nurse took his blood pressure today and he was hypertensive. The patient reports taking his antibiotics daily, but his family states that he did not get his dose tonight. The patient also reports having scar tissue on his right leg that have developed into blisters, and has had some edema in his legs. He denies having urinary symptoms. Source of History: patient, family Onset: today Position: back Quality: other (wound infection) Associated Symptoms: + headache, + nausea, + vomiting, No urinary symptoms Review of Systems See HPI for pertinent positives and negatives. A total of ten systems were reviewed and were otherwise negative. Past Medical & Surgical Medical Problems: (1) Chronic pain (2) Confusion (3) Diabetes mellitus, type II (4) Diabetic polyneuropathy (5) Facial cellulitis (6) Gastroparesis (7) HTN (hypertension) (8) Intractable nausea and vomiting (9) Lung cancer (10) Nausea and vomiting (11) Neutropenia (12) Orthostatic hypotension (13) Respiratory failure, acute Surgical Problems: (1) H/O colonoscopy (2) H/O esophagogastroduodenoscopy (3) History of cholecystectomy (4) History of tonsillectomy and adenoidectomy (5) Hx of total knee arthroplasty (6) S/P lobectomy of lung Family History Cancer Diabetes mellitus Hypertension Social History Smoking Status: Former Smoker Alcohol Use: none Drug Use: none Marital Status: Housing Status: lives with family Occupation Status: disabled Current/Historical Medications Scheduled Albuterol Hfa (Ventolin Hfa), 2-4 PUFFS INH Q6H Amlodipine (Norvasc), 5 MG PO DAILY Aspirin (Aspirin Ec), 81 MG PO QAM Folic Acid (Folvite), 1 TAB PO QAM Gabapentin (Gabapentin), 1 TAB PO TID Insulin Aspart (Novolog), 5 UNITS SC ACHS Insulin Glargine (Lantus), 20 UNITS SC QPM Insulin Glargine (Lantus), 20 UNITS SC QPM Levetiracetam (Keppra), 750 MG PO BID Magnesium Chloride (Slow-Mag Tab), 64 MG PO BID Metoprolol Tartrate (Lopressor) (Lopressor), 25 MG PO BID Multiple Vitamin (Multivitamins), 1 CAP PO QAM Pantoprazole (Protonix), 40 MG PO QAM Vancomycin HCl in Sodium Chlor (Vancomycin Hydrochloride/ 1.25-0.9 gm/250Ml-%), 1,250 MG IV DAILY Venlafaxine Hcl (Effexor Xr), 37.5 MG PO QAM Scheduled PRN Acetaminophen (Tylenol), 650 MG PO TID PRN for Pain Epinephrine (Epipen), 0.3 MG IM UD PRN for ALLERGIC REACTION Hydromorphone Hcl (Dilaudid), 8 MG PO Q8 PRN for Pain Metoclopramide Hcl (Reglan), 10 MG PO ACHS PRN for Nausea Ondansetron (Ondansetron HCl), 8 MG PO Q8 PRN for Nausea Promethazine Hcl (Phenergan Suppository), 25 MG CO Q4H PRN for Nausea or Vomiting Allergies Coded Allergies: BEE STING (Verified Allergy, Mild, SWELLING AT SITE, SOB, 02/01/17) Penicillins (Unverified Allergy, Unknown, "SINCE "-Amoxicillin, ) Physical Exam Vital Signs Date Time Temp Pulse Resp B/P (MAP) Pulse Ox O2 Delivery O2 Flow Rate FiO2 02/02/17 02:00 88 20 158/96 94 Nasal Cannula 4.0 02/02/17 00:30 84 20 127/74 94 Nasal Cannula 4.0 02/01/17 23:31 90 18 166/88 95 Nasal Cannula 4.0 02/01/17 22:41 93 Mask 4.0 02/01/17 22:29 92 02/01/17 22:28 92 20 177/103 93 Nasal Cannula 4.0 02/01/17 21:17 98 20 161/84 83 Room Air 02/01/17 21:17 93 Nasal Cannula 4.0 02/01/17 20:48 36.9 102 16 190/100 91 Room Air Physical Exam GENERAL: Awake, alert, chronically-ill appearing, uncomfortable. HENT: Normocephalic, atraumatic. Oropharynx unremarkable. Dry mucous membranes. EYES: Normal conjunctiva. Sclera non-icteric. NECK: Supple. No nuchal rigidity. FROM. No JVD. RESPIRATORY: Diminished lung sounds at bases but otherwise clear. CARDIAC: Regular rate, normal rhythm. Extremities warm and well perfused. Pulses equal. ABDOMEN: Soft, non-distended. No tenderness to palpation. No rebound or guarding. No masses. RLQ pump site with dressing c/d/i RECTAL: Deferred. MUSCULOSKELETAL: Diffuse tenderness throughout entire back. Fluctuant area in lumbar region surrounding his incision sight with a scant serous yellowish discharge. Chest examination reveals no tenderness. LOWER EXTREMITIES: 5/5 motor. Sensation is diminished at his baseline. Calves are equal size bilaterally and non-tender. NEURO: Normal sensorium. No sensory or motor deficits noted. SKIN: No rash or jaundice noted. Medical Decision & Procedures ER Provider Diagnostic Interpretation: X-ray: Per my interpretation, radiologist review. CHEST ONE VIEW PORTABLE HISTORY: 51 years-old Male Evaluate Fever/Sepsis acute fever with sepsis. COMPARISON: Chest radiograph 01/19/2017 TECHNIQUE: Portable upright AP view of the chest FINDINGS: Cardiac silhouette is again mildly enlarged. No pneumothorax. There is a small left pleural effusion. There is improved aeration of the left lung base. Lungs are mildly hypoinflated with bronchovascular crowding. Hazy right perihilar and bibasilar patchy opacities have developed in the interval. Right-sided PICC is noted terminating in the region of the brachiocephalic SVC confluence. Bones are grossly intact. IMPRESSION: 1. Small left pleural effusion with improved aeration of the left lung. 2. Interval development of patchy right perihilar and medial right lung base opacities suggesting atelectasis or pneumonia. Follow-up recommended. The above report was generated using voice recognition software. It may contain grammatical, syntax or spelling errors. Electronically signed by: Richard Metzger M.D. 02/01/2017 10:27 PM Dictated Date/Time: 02/01/2017 10:25 PM STATRAD: Preliminary Findings Only See Final Report For Complete Findings CT ABDOMEN & PELVIS: Compared to 01/14/17 2.7 cm subcutaneous fluid collection overlying the leftward paraspinal musculature about the neural stimulator. Slight increase in the interval. Gastric pacemaker device. No perforation. Mild fecal retention should be correlated for constipation. No SBO. Cholecystectomy Interval development of [id number] left and small right pleural effusions. Pleural enhancement on the left. This and basilar infiltrates are suspicious for infection. Increasing generalized body wall edema. Radiologist: Jose Rene M.D. Laboratory Results Test 02/01/17 00:56 02/01/17 21:50 02/01/17 23:28 02/02/17 00:56 Activated Partial Thromboplast Time 28.1 SECONDS (21.0-31.0) Partial Thromboplastin Ratio 1.1 Toxic Vacuolation 1+ Lactic Acid Level 0.7 mmol/L (0.4-2.0) Direct Bilirubin < 0.1 mg/dl (0-0.2) Pro-B-Type Natriuretic Peptide 3441 pg/ml (0-900) Arterial Blood pH 7.41 (7.35-7.45) Arterial Blood Partial Pressure CO2 51 mmHg (35-46) Arterial Blood Partial Pressure O2 71 mm/Hg (80-95) Arterial Blood HCO3 32 mmol/L (19-24) Arterial Blood Oxygen Saturation 90.6 % (90-95) Arterial Blood Base Excess 6.2 mEq/L (-9-1.8) Arterial Blood Gas Delivery 4 L Antonino Test POS (POS) Laboratory results reviewed by me Medications Administered Medications (Trade) Dose Ordered Sig/Cal Route Start Time Stop Time Status Last Admin Dose Admin Metoclopramide HCl (Reglan Inj) 10 mg NOW STAT IV 02/01/17 21:38 02/01/17 21:44 DC 02/01/17 22:25 10 MG Diphenhydramine HCl (Benadryl Inj) 25 mg NOW STAT IV 02/01/17 21:38 02/01/17 21:44 DC 02/01/17 22:25 25 MG Vancomycin HCl 1250 mg/Sodium Chloride 275 ml @ 125 mls/hr ONE STAT IV 02/01/17 21:38 02/01/17 23:49 DC 02/01/17 22:40 125 MLS/HR Cefepime HCl 2000 mg/Dextrose 112.5 ml @ 200 mls/hr NOW STAT IV 02/01/17 23:46 02/02/17 00:28 DC 02/02/17 00:31 200 MLS/HR Heparin Sodium (Porcine) (Heparin 10 Unit/ ml 5 ml Flush) 5 ml STK-MED ONCE .ROUTE 02/02/17 01:09 02/02/17 01:10 DC 02/02/17 01:13 5 ML Albuterol/ Ipratropium (Duoneb) 3 ml ONE STAT INH 02/02/17 01:34 02/02/17 01:35 DC 02/02/17 01:34 3 ML Furosemide (Lasix Inj) 20 mg ONE STAT IV 02/02/17 01:35 02/02/17 01:36 DC 02/02/17 01:35 20 MG ECG Indication: weakness Rate (beats per minute): 93 Rhythm: normal sinus Findings: no acute ischemic change, other (normal axis) ED Course 2116: The patient was evaluated in room A11B. A complete history and physical exam was performed. 2137: Ordered Vancomycin HCl 1,250 mg/Sodium Chloride 525 ml @ 200 mls/hr IV, Benadryl Inj 25 mg IV, Reglan Inj 10 mg IV. 6: Ordered Cefepime HCl 2,000 mg/Dextrose 112.5 ml @ 200 mls/hr IV. 0015: Discussed the patient's case with Dr. Chinchilla. The patient will be evaluated for further treatment and disposition. 0025: Upon reexamination, the patient was resting. I discussed the test results and treatment plan with him. The patient will be evaluated for further management. Medical Decision I reviewed the patient's past medical history, medications, and the nursing notes as described above. Differentials include" CSF leak, post-operation seroma , sepsis, pneumonia, bronchitis, and UTI. Patient is a 51-year-old gentleman with a complicated past medical history of metastatic lung cancer as well as neck pain syndrome and neuropathy status post intrathecal Dilaudid pump in the last month with numerous postoperative complications including sepsis and abscess is charged yesterday after a recent hospitalization presents with discharge from his incision site that was concerning for home nurse and referred the patient to the hospital. While the patient appears uncomfortable and chronically ill but in no acute distress. Exam the patient does have an area of fluctuance at the incision site with scant serous yellow discharge. No warmth or crepitus is appreciated. She has diffuse back pain throughout to eat and light touch that his has been his baseline since his recent intrathecal pump revision. Will workup with labs and CT to assess fluid collection. Anticipate admission for evaluation and management by pain service who performed prior revision. Chest x-ray and CT scan with new interval development of pulmonary infiltrates concerning for pneumonia, in the setting of a new oxygen requirement with O2 saturation in the 80s on room air. Additionally, soft tissue fluid collection has also had an interval increase. Patient was given his dose of vancomycin with additional cefepime for HCAP coverage and early sepsis. Case was discussed with medicine hospitalist, Dr. Chinchilla, will admit the patient for further management. Medication Reconcilliation Current Medication List: was personally reviewed by me Blood Pressure Screening Patient's blood pressure: Elevated blood pressure Blood pressure disposition: Elevated BP felt to be situational Consults Time Called: 0000 Consulting Physician[facility] Returned Call: 0015 Discussed the patient's case. The patient will be evaluated for further treatment and disposition. Impression Primary Impression: Pneumonia Additional Impressions: Post-operative complication Sepsis Critical Care I have personally spent greater than 35 minutes of critical care time in the direct management of this patient. This includes bedside care, interpretation of diagnostic studies, and testing, discussion with consultants, patient, and family members, and other required patient management activities. This 35 minutes is in excess of all separately billable procedures. Scribe Attestation The scribe's documentation has been prepared under my direction and personally reviewed by me in its entirety. I confirm that the note above accurately reflects all work, treatment, procedures, and medical decision making performed by me. Departure Information Dispostion Being Evaluated By Hospitalist Referrals Bran Burgess M.D. (PCP) Patient Instructions My [facility] Health Problem Qualifiers
[2017-02-01] MEDS ORDERED: INSDGI SC (21:34)
[2017-02-01] MEDS ORDERED: AMLO-110 PO (21:34)
[2017-02-01] MEDS ORDERED: VNTHFA/IN INH (21:34)
[2017-02-01] MEDS ORDERED: NRN600 PO (21:35)
[2017-02-01] MEDS ORDERED: VANCOMYCIN INJ 1,250 MG in SODIUM CHLORIDE 0.9% 250ML 250 ML IV STA (21:38)
[2017-02-01] MEDS ORDERED: METOCLOPRAMIDE HCL INJ 5 MG/ML 2 ML VIAL IV STA (21:38)
[2017-02-01] MEDS ORDERED: DiphenhydrAMINE HCL 50 MG/ML VIAL IV STA (21:38)
[2017-02-01] MEDS ORDERED: VANCOMYCIN INJ 1,250 MG in SODIUM CHLORIDE 0.9% 500ML 500 ML IV STA (21:38)
[2017-02-01 22:07] LABS: BASO % 0.3 %; BASO ABS # 0.02 K/uL (0-0.2); EOS % 1.7 %; HEMATOCRIT 25.7 % (42-52); IG% 0.5 %; LYMPH % 12.9 %; LYMPH ABS # 0.74 K/uL (1.2-3.4); MEAN CELL VOLUME 86.2 fL (80-100); MEAN CORPUSCULAR HEMOGLOBIN 28.9 pg (25-34); MEAN CORPUSCULAR HGB CONC 33.5 g/dl (32-36); MEAN PLATELET VOLUME 9.7 fL (7.4-10.4); MONO % 11.1 %; NEUT % 73.5 %; PLATELET COUNT 234 K/uL (130-400); RED BLOOD COUNT 2.98 M/uL (4.7-6.1); WHITE BLOOD COUNT 5.75 K/uL (4.8-10.8)
--- NOTE | 2017-02-01 22:28 | DIAGNOSTIC IMAGING REPORT ---
CHEST ONE VIEW PORTABLE HISTORY: 51 years-old Male Evaluate Fever/Sepsis acute fever with sepsis. COMPARISON: Chest radiograph 01/19/2017 TECHNIQUE: Portable upright AP view of the chest FINDINGS: Cardiac silhouette is again mildly enlarged. No pneumothorax. There is a small left pleural effusion. There is improved aeration of the left lung base. Lungs are mildly hypoinflated with bronchovascular crowding. Hazy right perihilar and bibasilar patchy opacities have developed in the interval. Right-sided PICC is noted terminating in the region of the brachiocephalic SVC confluence. Bones are grossly intact. IMPRESSION: 1. Small left pleural effusion with improved aeration of the left lung. 2. Interval development of patchy right perihilar and medial right lung base opacities suggesting atelectasis or pneumonia. Follow-up recommended. The above report was generated using voice recognition software. It may contain grammatical, syntax or spelling errors. Electronically signed by: Richard Metzger M.D. 02/01/2017 10:27 PM Dictated Date/Time: 02/01/2017 10:25 PM
[2017-02-01 22:37] LABS: COMPLETE YES; VACUOLIZATION 1+
[2017-02-01 22:46] LABS: ALKALINE PHOSPHATASE 133 U/L (45-117); ALT/SGPT 35 U/L (12-78); BLOOD UREA NITROGEN 23 mg/dl (7-18); BUN/CREATININE RATIO 17.7 (10-20); CALCIUM 8.5 mg/dl (8.5-10.1); CARBON DIOXIDE 30 mmol/L (21-32); CHLORIDE 105 mmol/L (98-107); GLUCOSE 214 mg/dl (70-99); SODIUM 142 mmol/L (136-145)
[2017-02-01] MEDS ORDERED: CEFEPIME IV 2,000 MG in DEXTROSE 5% 100ML 100 ML IV STA (23:46)
[2017-02-01 23:56] LABS: POTASSIUM 4.1 mmol/L (3.5-5.1)
[2017-02-02] VITALS (12 sets, daily range): BP systolic 160–208; BP diastolic 78–111; PULSE 80–101; TEMP 36.5–36.8; O2SAT 91–100; BMI 33.4
[2017-02-02 00:01] LABS: AST/SGOT 14 U/L (15-37)
[2017-02-02 00:51] LABS: MAGNESIUM 1.5 mg/dl (1.8-2.4)
[2017-02-02 00:58] LABS: PARTIAL THROMBOPLASTIN RATIO 1.1
[2017-02-02 01:15] LABS: ALLEN TEST POS (POS); ARTERIAL BLD GAS O2 SATURATION 90.6 % (90-95); ARTERIAL BLOOD GAS BASE EXCESS 6.2 mEq/L (-9-1.8); ARTERIAL BLOOD GAS HCO3 32 mmol/L (19-24); ARTERIAL BLOOD GAS PO2 71 mm/Hg (80-95); ARTERIAL BLOOD GAS pH 7.41 (7.35-7.45); O2 ADMINISTRATION 4 L
[2017-02-02] MEDS ORDERED: FUROSEMIDE INJ 20 MG in SYRINGE 0 ML IV STA (01:25)
[2017-02-02] MEDS ORDERED: ALBUT/IPRATROP 3MG/0.5MG NEB 3 ML VIAL INH STA (01:34)
[2017-02-02] MEDS ORDERED: FUROSEMIDE 40 MG/4 ML VIAL IV STA (01:35)
[2017-02-02] MEDS ORDERED: LEVALBUTEROL/IPRATROPIUM NEB INH PRN (03:45)
[2017-02-02] MEDS ORDERED: GLUCOSE 10 TABS/TUBE PO PRN (03:45)
[2017-02-02] MEDS ORDERED: GLUCOSE 40% GEL 15 GM TUBE PO PRN (03:45)
[2017-02-02] MEDS ORDERED: GLUCAGON FOR INJ 1 MG VIAL SQ PRN (03:45)
[2017-02-02] MEDS ORDERED: ACETAMINOPHEN 325 MG TAB PO PRN (03:45)
[2017-02-02] MEDS ORDERED: LEVALBUTEROL 1.25MG/0.5ML NEB INH PRN (04:00)
[2017-02-02] MEDS ORDERED: IPRATROPIUM BROMIDE NEB SOLN 0.02% 2.5 ML VIAL INH PRN (04:00)
[2017-02-02] MEDS ORDERED: INSULIN ASPART 100 UNITS/ML 3 ML PEN SC ONE (04:30)
[2017-02-02] MEDS ORDERED: METOPROLOL TARTRATE 25 MG TAB PO ONE (04:30)
[2017-02-02] MEDS ORDERED: CEFEPIME CONSULT ACTIVE PRN ×2 (04:45)
[2017-02-02] MEDS ORDERED: VANCOMYCIN CONSULT ACTIVE PRN (04:45)
[2017-02-02] MEDS ORDERED: CLINDAMYCIN CONSULT ACTIVE PRN ×2 (04:45)
[2017-02-02] MEDS: VANCOMYCIN INJ 1,250 MG in SODIUM CHLORIDE 0.9% 250ML 250 ML IV SCH (05:26)
[2017-02-02] MEDS: CLINDAMYCIN IV 600 MG in DEXTROSE 5% 50ML 50 ML IV SCH ×3 (05:26→19:28)
[2017-02-02] MEDS: MAGNESIUM SULFATE 1GM / D5W 1 GM in PREMIXED IN D5W 100 ML IV SCH ×2 (05:27→06:21)
--- NOTE | 2017-02-02 05:45 | DIAGNOSTIC IMAGING REPORT ---
ABD/PELVIS IV CONTRAST ONLY CLINICAL HISTORY: 51 years-old Male presenting with back pain, lumbar fluid collection.. TECHNIQUE: Multidetector CT of the abdomen and pelvis was performed after the administration of intravenous contrast. IV contrast: 92 mL of Optiray 320. A dose lowering technique was used consistent with the principles of ALARA (as low as reasonably achievable). COMPARISON: 01/14/2013. CT DOSE (mGy.cm): The estimated cumulative dose is 1288.23 mGy.cm. FINDINGS: Suboptimal opacification of the parenchyma with contrast. [employer] topogram: 2 implanted devices noted in the right and left abdomen with associated leads. Lung bases: Interval development of nodular and groundglass opacities at dependent distribution in the right lower lobe. Moderate left and small right pleural effusions new from prior. Associated dependent consolidation and volume loss in the left lower lobe, likely passive atelectasis. Normal heart size. Trace pericardial effusion. Liver: Normal morphology. Portal veins patent. Hepatic veins not yet opacified. Suboptimal evaluation for liver lesion. Biliary: No gross biliary ductal dilatation allowing for suboptimal contrast opacification. Gallbladder surgically absent. Pancreas: Severe parenchymal atrophy. Spleen: Normal. Adrenal glands: Normal. Kidneys and ureters: Normal. No hydronephrosis. Bladder: Distended bladder. Pelvic organs: Prostate and seminal vesicles normal. Bowel: Moderate stool burden in normal caliber colon. No bowel obstruction. Appendix not visualized. Peritoneal cavity: No free fluid or intraperitoneal gas. Vasculature: Atherosclerosis of the normal caliber abdominal aorta. IVC patent. Lymph nodes: Few prominent right inguinal lymph nodes, increased in size from prior, possibly reactive. Abdominal wall: At the previous site of the fluid collection surrounding the implant device in the right anterior abdomen, only a scant fluid remains. An overlying defect in the cutis may indicate incision. The catheter that courses from this device enters the spinal canal at the L3-4 level. Persistence of the rim-enhancing fluid collection in the left paraspinal musculature, measuring 3.4 cm. However, the fluid along the course of the catheter itself has decreased. The catheter terminates at T11-12. Evaluation of the spinal canal itself is limited on CT. The left anterior abdominal wall implanted device has 2 leads that course to the gastric antrum. Interval development of mild anasarca. Musculoskeletal: Bone island noted in the left femoral head. Degenerative changes of the hips. Mild degenerative change of the spine. IMPRESSION: Overall the examination is suboptimal secondary to the poor contrast opacification. 1. Persistent and unchanged size of the left paraspinal intramuscular abscess along the course of the spinal catheter. The fluid around the implanted abdominal wall portion of the device has significantly decreased, only trace remains. Similarly, significant decrease in the fluid along the course of the catheter. 2. Interval development of nodular groundglass opacities in the right lower lobe, concerning for pneumonia or aspiration. 3. New small right and moderate left pleural effusions with atelectasis. 4. Distended bladder. Voiding or catheterization recommended. 5. Reactive right inguinal lymph nodes. 6. Anasarca. Electronically signed by: Ronnell Renee M.D. 02/02/2017 5:44 AM Dictated Date/Time: 02/02/2017 5:34 AM
--- NOTE | 2017-02-02 06:11 | HISTORY & PHYSICAL EXAMINATION ---
DATE OF ADMISSION: 02/02/2017 PRIMARY CARE PHYSICIAN: Dr. Condon. CHIEF COMPLAINT: Increased back pain, shortness of breath. Medical history obtained from patient, patient's , and records. Limited history from patient secondary to lethargy. Medical history significant for NSCLC stage III, status post surgery, incomplete chemotherapy secondary to intolerance, gastroparesis, chronic pain on pain pump, hypertension, DM2 insulin requiring, past tobacco abuse, chronic anemia (baseline hemoglobin 8), seizure disorder as per records. History neurogenic bladder. Recent confinement from 01/14/2017-01/31/2017 for intrathecal pump infection leakage. CS grew MSSA. Patient discharged 2 days ago on IV Vancomycin course for 6 weeks. Px was about to get in a vehicle to go home 2 days ago, he felt a pop in his back, increased drainage noted later on as per somewhat pasty and achy back pain noted at home. Not feeling well, Headache achy behind his left eye, some nausea, vomiting. Patient felt more short of breath, dry cough. No fever, some chills. Ppatient returned to the Emergency Room. Received vancomycin and cefepime at the ER. Purulent drainage from the back as per RN. MEDICAL HISTORY: As above. SURGERIES: Knee surgery, tonsillectomy, pain pump placement, lymphadenectomy. HOME MEDICATIONS: Include IV vancomycin, albuterol, aspirin, Tylenol, Norvasc, EpiPen, Folvite, gabapentin, Dilaudid, NovoLog, Lantus, Keppra, Flomax, Effexor. ALLERGIES: TO BEE STING, PENICILLIN. FAMILY HISTORY: Family history of diabetes, renal cell cancer. PERSONAL AND SOCIAL HISTORY: Past tobacco abuse. No chronic intake of alcohol. Disabled. REVIEW OF SYSTEMS: Could not be reliably obtained. PHYSICAL EXAMINATION: VITAL SIGNS: Blood pressure noted to be 190/100, later 170/80, pulse rate 101 later 84, RR 20, temperature 36.9, sats 93 on 4 liters. GENERAL: Noted to be lethargic, obese. SKIN: Pallor, dry. HEENT: Alopecia, pale palpebral conjunctivae, dry mucosa. NECK short, midline trachea , no tenderness. CHEST : Decreased effort, no tenderness CV : RRR, palpable LE pulses ABDOMEN: Some distension, NT. BACK: Dressing on the low back, lumbar sutures noted, scant yellow drainage. Some tenderness LOWER EXTREMITIES: No edema, no tenderness. NE Lethargic. Pupils equal and sluggishly reactive to light. Gait and stance not assessed. No nuchal rigidity. LABORATORY DATA: Hemoglobin was noted to be 8.6, hematocrit 25.7, white blood cell count 5.7, platelets noted to be 234. Sodium noted to be 140, K4.1 CO2 30, BUN 20, creatinine 1.3, glucose 214. BNP was 4000. Hemoglobin A1C 7.2 from 01/2017. Chest x-ray showed small left pleural effusion, patchy right perihilar medial lung base pneumonia. CT abdomen and pelvis initial read showed 2.7 fluid collection overlying the left paraspinal musculature slightly increased in size. Bilateral pleural effusions. ABG, pH of 7.41, pCO2 of 51, pO2 71, O2 sats [address] head initial read no acute pathology. EKG as per my interpretation : normal sinus rhythm. No ischemia. ASSESSMENT: 1. Acute hypoxemic respiratory failure Multifactorial : healthcare-associated pneumonia/likely aspiration el pleural effusion, congestion, elevated BNP ? CHF, hx chemotx 2. Worsening back pain, fluid drainage, CSF infection history of intrathecal pump placement for chronic pain MSSA on CS, ongoing IV Vancomycin course 3. Sepsis secondary to 1 and 2 4. NSCLC stage III status post surgery, chemotherapy intolerance 5. HTN, slightly elevated 6. DM2, insulin requiring, well controlled as of recent hemoglobin A1c 7. hx Seizures, stable on Keppra 8. Chronic anemia, hemoglobin at baseline 9. Past tobacco abuse PLAN: PCU supplemental O2, nebs Lasix one dose TTE RE bilateral pleural effusions, possible CHF CS, Vancomycin, Cefepime and Clindamycin for HCAP Consult Pain Management RE follow-up evaluation for lumbar fluid reaccumulation (Patient known to Dr. Hope.) continue basal insulin, ISS BG goal 140-180 DVT prophylaxis SCDs for now RE possible procedure Full code Patient's requesting for updates from providers. Mrs. Oly Hamilton at [phone]. [facility]
[2017-02-02] MEDS: IPRATROPIUM BROMIDE NEB SOLN 0.02% 2.5 ML VIAL INH SCH ×3 (06:58→20:05)
[2017-02-02] MEDS: LEVALBUTEROL 1.25MG/0.5ML NEB INH SCH ×3 (06:58→20:05)
--- NOTE | 2017-02-02 07:17 | DIAGNOSTIC IMAGING REPORT ---
HEAD WITHOUT CONTRAST (CT) CLINICAL HISTORY: 51 years-old Male presenting with hill. TECHNIQUE: Multidetector CT imaging of the head was performed without the use of intravenous contrast. IV contrast: None. A dose lowering technique was used consistent with the principles of ALARA (as low as reasonably achievable). COMPARISON: 08/25/2016. CT DOSE (mGy.cm): The estimated cumulative dose is 614.27 mGy.cm. FINDINGS: [employer] topogram: Unremarkable. Ventricles and sulci normal in size. Brain parenchyma normal in appearance with preserved acosta-white differentiation. No mass effect or midline shift. No hemorrhage or acute territorial infarct. No extra-axial fluid collection. Paranasal sinuses and mastoid air cells clear. Calvarium intact. Subcutaneous soft tissue infiltration overlying occiput. No subjacent osseous injury. IMPRESSION: 1. No acute intracranial pathology. 2. Contusion over the occiput. No subjacent osseous injury. Electronically signed by: Ronnell Renee M.D. 02/02/2017 7:16 AM Dictated Date/Time: 02/02/2017 7:14 AM
[2017-02-02] MEDS: CEFEPIME IV 2000 MG in DEXTROSE 5% 100ML IV SCH ×3 (07:51→23:37)
[2017-02-02] MEDS: VENLAFAXINE HCL XR 37.5 MG CAPXR PO SCH (07:53)
[2017-02-02] MEDS: GABAPENTIN 600 MG TAB PO SCH ×3 (07:54→20:35)
[2017-02-02] MEDS: ASPIRIN 81 MG ECTAB PO SCH (07:54)
[2017-02-02] MEDS: AMLODIPINE BESYLATE 5 MG TAB PO SCH (07:54)
[2017-02-02] MEDS: METOPROLOL TARTRATE 25 MG TAB PO SCH ×2 (07:55→21:42)
[2017-02-02] MEDS: PANTOprazole SOD 40 MG TAB PO SCH (07:55)
[2017-02-02] MEDS: LEVETIRACETAM 250 MG TAB PO SCH ×2 (07:57→20:35)
[2017-02-02] MEDS: CEROVITE ADV FORMULA TAB PO SCH (07:58)
[2017-02-02] MEDS: DOCUSATE SODIUM/SENNA 50/8.6MG TAB PO SCH (07:58)
[2017-02-02 07:59] LABS: BASO % 0.5 %; BASO ABS # 0.02 K/uL (0-0.2); COMPLETE YES; EOS % 4.2 %; HEMATOCRIT 27.2 % (42-52); IG% 0.5 %; LYMPH % 28.6 %; LYMPH ABS # 1.16 K/uL (1.2-3.4); MEAN CELL VOLUME 86.1 fL (80-100); MEAN CORPUSCULAR HEMOGLOBIN 28.5 pg (25-34); MEAN CORPUSCULAR HGB CONC 33.1 g/dl (32-36); MEAN PLATELET VOLUME 8.8 fL (7.4-10.4); MONO % 14.8 %; NEUT % 51.4 %; PLATELET COUNT 198 K/uL (130-400); RED BLOOD COUNT 3.16 M/uL (4.7-6.1); WHITE BLOOD COUNT 4.06 K/uL (4.8-10.8)
[2017-02-02] MEDS ORDERED: INFLUENZA VIRUS QUAD VACCINE 0.5 ML SYR IM. ONE (08:00)
[2017-02-02] MEDS ORDERED: INFLUENZA ADMINISTRATION CHARGE ONE (08:00)
[2017-02-02] MEDS: INSULIN GLARGINE SOLOSTAR 100 UNITS/ML 3 ML PEN SC SCH ×2 (08:00→20:39)
[2017-02-02 08:32] LABS: BLOOD UREA NITROGEN 17 mg/dl (7-18); CALCIUM 8.6 mg/dl (8.5-10.1); CARBON DIOXIDE 29 mmol/L (21-32); CHLORIDE 103 mmol/L (98-107); GLUCOSE 143 mg/dl (70-99); POTASSIUM 4.1 mmol/L (3.5-5.1); SODIUM 140 mmol/L (136-145)
[2017-02-02] MEDS ORDERED: LEVALBUTEROL/IPRATROPIUM NEB INH SCH (09:00)
[2017-02-02] MEDS: INSULIN ASPART 100 UNITS/ML 3 ML PEN SC SCH ×3 (11:53→20:39)
[2017-02-02] MEDS ORDERED: FOSAPREPITANT DIMEGLUMINE INJ 115 MG in SODIUM CHLORIDE 0.9% 100ML 111.2 ML IV ONE (13:00)
[2017-02-02 14:38] LABS: URINE APPEARANCE CLEAR (CLEAR); URINE BILIRUBIN NEG (NEG); URINE COLOR YELLOW; URINE EPITHELIAL CELL AUTO 0-5 /lpf (0-5); URINE NITRITE NEG (NEG); URINE SPECIFIC GRAVITY 1.017 (1.000-1.030); UROBILINOGEN NEG (NEG); ZZUR CULT IF INDIC CLEAN CATCH NO
[2017-02-02 14:39] LABS: MANUAL MICROSCOPIC REQUIRED? NO; REVIEW REQ? NO
[2017-02-02] MEDS: HYDROmorphone HCL 2 MG TAB PO PRN ×3 (17:36→23:37)
--- NOTE | 2017-02-02 18:17 | Progress Note ---
Progress Note Date of Service Feb 02, 2017. Progress Note Spoke with Dr. Hernandez of pain management due to the clear liquid drainage. States that this is to be expected. No WBC count, no fever, no signs of infection. Will consult ID and ortho, in case there are new recommendations; otherwise, we will go back to his previous regimen of antibiotics. Pain medications adjusted to Hydromorphone 4mg q3hrs PRN. Gave one dose of Emend for nausea and he feels better.
[2017-02-03] VITALS (13 sets, daily range): BP systolic 153–179; BP diastolic 76–99; PULSE 82–103; TEMP 36.5–36.8; O2SAT 86–97
[2017-02-03] MEDS: LEVALBUTEROL 1.25MG/0.5ML NEB INH SCH ×4 (02:00→19:21)
[2017-02-03] MEDS: IPRATROPIUM BROMIDE NEB SOLN 0.02% 2.5 ML VIAL INH SCH ×4 (02:00→19:21)
[2017-02-03] MEDS: HYDROmorphone HCL 2 MG TAB PO PRN ×7 (02:35→21:17)
[2017-02-03] MEDS ORDERED: ONDANSETRON INJ 2 MG/ML 2 ML VIAL ONE (03:01)
[2017-02-03] MEDS: CLINDAMYCIN IV 600 MG in DEXTROSE 5% 50ML 50 ML IV SCH ×3 (04:05→19:37)
[2017-02-03] MEDS ORDERED: KETOROLAC TROMETHAMINE 15 MG/ML VIAL IV. STA (04:36)
[2017-02-03] MEDS ORDERED: OPTIRAY 320 IV PRN (05:00)
[2017-02-03 05:10] LABS: BASO % 0.4 %; BASO ABS # 0.02 K/uL (0-0.2); EOS % 4.8 %; HEMATOCRIT 26.2 % (42-52); IG% 0.4 %; LYMPH ABS # 0.97 K/uL (1.2-3.4); MEAN CORPUSCULAR HEMOGLOBIN 28.6 pg (25-34); MEAN CORPUSCULAR HGB CONC 32.8 g/dl (32-36); MEAN PLATELET VOLUME 8.6 fL (7.4-10.4); MONO % 11.9 %; NEUT % 61.5 %; PLATELET COUNT 199 K/uL (130-400); RED BLOOD COUNT 3.01 M/uL (4.7-6.1); WHITE BLOOD COUNT 4.63 K/uL (4.8-10.8)
[2017-02-03 05:28] LABS: BUN/CREATININE RATIO 15.3 (10-20); CALCIUM 7.9 mg/dl (8.5-10.1); CREATININE 1.1 mg/dl (0.60-1.40); MAGNESIUM 1.6 mg/dl (1.8-2.4); POTASSIUM 3.9 mmol/L (3.5-5.1)
[2017-02-03] MEDS ORDERED: VANCOMYCIN TROUGH SCH (05:30)
[2017-02-03 05:31] LABS: ALB/GLOB RATIO 0.6 (0.9-2)
[2017-02-03] MEDS ORDERED: INSULIN GLARGINE SOLOSTAR 100 UNITS/ML 3 ML PEN SC ONE (05:52)
[2017-02-03] MEDS ORDERED: INSULIN ASPART 100 UNITS/ML 3 ML PEN SC ONE (05:52)
[2017-02-03 05:56] LABS: COMPLETE YES; OVALOCYTES 1+
[2017-02-03] MEDS: VANCOMYCIN INJ 1,250 MG in SODIUM CHLORIDE 0.9% 250ML 250 ML IV SCH (05:56)
[2017-02-03] MEDS ORDERED: MAGNESIUM SULFATE 1GM / D5W 1 GM in PREMIXED IN D5W 100 ML IV ONE (06:00)
[2017-02-03] MEDS: LORAZEPAM 2 MG/ML 1 ML VIAL IV PRN ×2 (06:35→23:03)
[2017-02-03] MEDS ORDERED: IBUPROFEN 200 MG TAB PO PRN (06:45)
[2017-02-03] MEDS: CEFEPIME IV 2000 MG in DEXTROSE 5% 100ML IV SCH ×3 (07:34→23:14)
[2017-02-03] MEDS: DOCUSATE SODIUM/SENNA 50/8.6MG TAB PO SCH (07:36)
[2017-02-03] MEDS: GABAPENTIN 600 MG TAB PO SCH ×3 (07:43→20:36)
[2017-02-03] MEDS: AMLODIPINE BESYLATE 5 MG TAB PO SCH (07:44)
[2017-02-03] MEDS: ASPIRIN 81 MG ECTAB PO SCH (07:44)
[2017-02-03] MEDS: VENLAFAXINE HCL XR 37.5 MG CAPXR PO SCH (07:44)
[2017-02-03] MEDS: LEVETIRACETAM 250 MG TAB PO SCH ×2 (07:45→21:17)
[2017-02-03] MEDS: METOPROLOL TARTRATE 25 MG TAB PO SCH ×2 (07:46→20:36)
[2017-02-03] MEDS: INSULIN ASPART 100 UNITS/ML 3 ML PEN SC SCH ×4 (07:49→20:41)
[2017-02-03] MEDS: MAGNESIUM SULFATE 1GM / D5W 1 GM in PREMIXED IN D5W 100 ML IV SCH ×2 (08:00→08:04)
[2017-02-03] MEDS: CEROVITE ADV FORMULA TAB PO SCH (08:04)
[2017-02-03] MEDS: PANTOprazole SOD 40 MG TAB PO SCH (08:05)
--- NOTE | 2017-02-03 08:06 | DIAGNOSTIC IMAGING REPORT ---
ABD/PELVIS IV CONTRAST ONLY HISTORY: 51 years-old Male worsening abd pain acute generalized abdominal pain. Follow-up study to assess left paraspinal intramuscular abscess. COMPARISON: CT abdomen and pelvis 02/01/2017 TECHNIQUE: Multiple axial CT images of the abdomen and pelvis were obtained following the intravenous administration of 93 mL Optiray 320. A dose lowering technique was used consistent with the principals of DONA. FINDINGS: Small right and [id number] left pleural effusions are noted. Groundglass opacities of the lung bases are noted in addition to areas of intralobular septal thickening, right greater than left. No pneumoperitoneum. Inferior cardiac chambers are unremarkable. Prior cholecystectomy. The liver, spleen and adrenal glands are within normal limits. There is moderate to severe pancreatic atrophy. Kidneys, ureters are unremarkable. Urinary bladder is collapsed. Calcifications are seen within the central prostate. The abdominal aorta is normal in course and caliber. Mildly prominent inguinal lymph nodes are seen measuring up to 1 cm in short axis. No bulky retroperitoneal adenopathy. There is mild nonspecific wall thickening of the distal esophagus. No bowel obstruction or focal bowel wall thickening identified. No evidence to suggest acute appendicitis. There is moderate diffuse body wall edema. Implanted device of the right anterior abdomen is seen without associated fluid collection. Catheter courses from this device enters the spinal canal at L3-L4. Peripherally enhancing fluid collection within the subcutaneous tissues surrounding the leads are again seen on image 200 of series 3 measuring up to 1.5 x 2.7 x 4.2 cm in AP, transverse and craniocaudal dimension, unchanged. Distal leads from this device extend to T11-T12. No epidural fluid collections are seen on this study. Phlegmonous change abuts the paraspinal musculature. Left anterior abdominal wall implanted device has 2 leads that course to the gastric antrum. IMPRESSION: 1. Stable exam from comparison CT 02/01/2017 with redemonstration of persistent unchanged size of a left paraspinal peripherally enhancing fluid collection of the subcutaneous left paraspinal tissues abutting the adjacent left paraspinal musculature measuring up to 4.2 cm suggesting abscess. This surrounds the above-mentioned spinal catheter without definite intraspinal extension seen on this study. No epidural fluid collections identified. 2. Redemonstration of moderate diffuse body wall edema with small right and [id number] left pleural effusions. 3. Persistent groundglass bibasilar opacities of the lung bases with areas of intralobular septal thickening suspicious for pneumonitis. 4. Persistent mildly enlarged right inguinal lymph nodes, likely reactive. The above report was generated using voice recognition software. It may contain grammatical, syntax or spelling errors. Electronically signed by: Richard Metzger M.D. 02/03/2017 8:05 AM Dictated Date/Time: 02/03/2017 7:55 AM
--- NOTE | 2017-02-03 08:26 | Progress Note ---
Subjective Date of Service: Feb 03, 2017. Subjective Pt evaluation today including: conversation w/ patient, physical exam, lab review, review of studies, review of inpatient medication list Saw/examined the patient in room 219 He states his night was not good due to pain and nausea Concerned about the excessive fluid drainage from the intrathecal surgery site Problem List Medical Problems: (1) Acute kidney injury Status: Acute (2) Altered mental status Status: Acute (3) Anemia Status: Acute (4) Chronic pain Status: Acute (5) Dehydration Status: Acute (6) Dehydration Status: Acute (7) Dehydration Status: Acute (8) Dehydration Status: Acute (9) Diabetes mellitus with hyperglycemia Status: Acute (10) Failure of outpatient treatment Status: Acute (11) Hypomagnesemia Status: Acute (12) Hypomagnesemia Status: Acute (13) Intractable vomiting Status: Acute (14) Intractable vomiting Status: Acute (15) Intrathecal pump infection Status: Acute (16) Orthostatic hypotension Status: Acute (17) Pneumonia Status: Acute (18) Post-operative complication Status: Acute (19) Sepsis Status: Acute (20) Vomiting Status: Acute (21) Vomiting Status: Acute Review of Systems Constitutional: + weakness, No fever, No chills Respiratory: No shortness of breath Cardiac: No chest pain Abdomen: + nausea, + vomiting, No pain, No diarrhea, No constipation, No GI bleeding Musculoskeletal: + joint pain (throughout body), + muscle pain Neurologic: + numbness/tingling Medications Current Inpatient Medications Medications (Trade) Dose Ordered Sig/Cal Route Start Time Stop Time Status Last Admin Dose Admin Acetaminophen (Tylenol Tab) 650 mg Q4H PRN PO 02/02/17 03:45 03/04/17 03:44 02/02/17 19:28 650 MG Glucose (Glucose 40% Gel) 15-30 GRAMS 15 GRAMS... UD PRN PO 02/02/17 03:45 03/04/17 03:44 Glucose (Glucose Chew Tab) 4-8 Tablets 4 Tabl... UD PRN PO 02/02/17 03:45 03/04/17 03:44 Dextrose (Dextrose 50% 50ML Syringe) 25-50ML OF 50% DW IV FOR... UD PRN IV 02/02/17 03:45 03/04/17 03:44 Glucagon (Glucagon Inj) 1 mg UD PRN SQ 02/02/17 03:45 03/04/17 03:44 Clindamycin Phosphate 600 mg/ Dextrose 54 ml @ 100 mls/hr Q8H IV 02/02/17 04:00 02/09/17 03:59 02/03/17 04:05 100 MLS/HR Clindamycin Phosphate (Consult) 1 ea UD PRN N/A 02/02/17 04:45 03/04/17 04:44 Amlodipine Besylate (Norvasc Tab) 5 mg DAILY PO 02/02/17 09:00 03/04/17 08:59 02/03/17 07:44 5 MG Aspirin (Ecotrin Tab) 81 mg QAM PO 02/02/17 09:00 03/04/17 08:59 02/03/17 07:44 81 MG Folic Acid (Folvite Tab) 1 mg QAM PO 02/02/17 09:00 03/04/17 08:59 02/03/17 07:45 1 MG Gabapentin (Neurontin Tab) 600 mg TID PO 02/02/17 09:00 03/04/17 08:59 02/03/17 07:43 600 MG Levetiracetam (Keppra Tab) 750 mg BID PO 02/02/17 09:00 03/04/17 08:59 02/03/17 07:45 750 MG Metoprolol Tartrate (Lopressor Tab) 25 mg BID PO 02/02/17 09:00 03/04/17 08:59 02/03/17 07:46 25 MG Pantoprazole Sodium (Protonix Tab) 40 mg QAM PO 02/02/17 09:00 03/04/17 08:59 02/03/17 08:05 40 MG Venlafaxine HCl (effeXOR EXTENDED REL CAP) 37.5 mg QAM PO 02/02/17 09:00 03/04/17 08:59 02/03/17 07:44 37.5 MG Multivitamins/ Minerals (Multivitamin W/ Minerals Tab) 1 tab QAM PO 02/02/17 09:00 03/04/17 08:59 02/03/17 08:04 1 TAB Ipratropium [place] (Atrovent 0.02% 0.5MG/2.5ML Neb) 0.5 mg Q6R INH 02/02/17 09:00 03/04/17 08:59 02/03/17 07:08 0.5 MG Levalbuterol (Xopenex 1.25MG/ 0.5ML Neb) 1.25 mg Q6R INH 02/02/17 09:00 03/04/17 08:59 02/03/17 07:08 1.25 MG Ipratropium [place] (Atrovent 0.02% 0.5MG/2.5ML Neb) 0.5 mg Q4H PRN INH 02/02/17 04:00 03/04/17 03:59 Levalbuterol (Xopenex 1.25MG/ 0.5ML Neb) 1.25 mg Q4H PRN INH 02/02/17 04:00 03/04/17 03:59 Vancomycin HCl 1250 mg/Sodium Chloride 275 ml @ 125 mls/hr Q24H IV 02/02/17 06:00 02/09/17 05:59 02/03/17 05:56 125 MLS/HR Cefepime HCl (Consult) 1 ea UD PRN N/A 02/02/17 04:45 03/04/17 04:44 Vancomycin HCl (Consult) 1 ea UD PRN N/A 02/02/17 04:45 03/04/17 04:44 Cefepime HCl 2000 mg/Dextrose 112.5 ml @ 225 mls/hr Q8H IV 02/02/17 08:00 02/09/17 07:59 02/03/17 07:34 225 MLS/HR Senna/Docusate Sodium (Senokot S Tab) 1 tab QAM PO 02/02/17 09:00 03/04/17 08:59 02/02/17 07:58 1 TAB Hydromorphone HCl (Dilaudid Tab) 4 mg Q3HWA PRN PO 02/02/17 16:15 02/16/17 03:44 02/03/17 05:58 4 MG Heparin Sodium (Porcine) (Heparin 10 Unit/ ml 5 ml Flush) 5 ml PRN PRN FLUSH 02/03/17 00:30 03/05/17 00:29 Ondansetron HCl (Zofran Inj) 4 mg Q6H PRN IV 02/03/17 02:45 03/05/17 02:44 Promethazine HCl 12.5 mg/Sodium Chloride 50.5 ml @ 204 mls/hr Q6H PRN IV 02/03/17 02:45 03/05/17 02:44 02/03/17 08:38 204 MLS/HR Ioversol (Optiray 320) 100 ml UD PRN IV 02/03/17 05:00 02/07/17 04:59 Lorazepam (Ativan Inj) 0.25 mg Q6H PRN IV 02/03/17 06:00 03/05/17 05:59 02/03/17 06:35 0.25 MG Insulin Aspart (novoLOG ASPART) SLIDING SCALE If C... ACHS SC 02/03/17 11:00 03/04/17 10:59 02/03/17 07:49 4 UNITS Insulin Glargine (Lantus Solostar Pen) 12 units BID SC 02/03/17 21:00 03/04/17 08:59 Magnesium Sulfate 1 gm/Prmx 100 ml @ 100 mls/hr Q1H IV 02/03/17 08:00 02/03/17 09:59 02/03/17 08:04 100 MLS/HR Objective Vital Signs Date Time Temp Pulse Resp B/P (MAP) Pulse Ox O2 Delivery O2 Flow Rate FiO2 02/03/17 07:42 36.6 99 20 167/88 (114) 93 Room Air 02/03/17 07:11 82 16 90 Room Air 02/03/17 04:00 92 Room Air 02/03/17 03:14 36.8 93 18 153/76 (101) 95 Room Air 02/03/17 02:17 91 16 94 Room Air 02/02/17 23:59 92 Room Air 02/02/17 23:29 36.8 101 18 176/99 (124) 92 Room Air 02/02/17 20:05 96 16 97 Room Air 02/02/17 20:00 92 Room Air 02/02/17 19:12 36.5 98 18 165/89 (114) 92 Room Air 02/02/17 16:00 Room Air 02/02/17 15:50 36.5 94 18 160/79 (106) 97 Room Air 02/02/17 14:20 83 16 91 Room Air 02/02/17 12:00 Room Air 02/02/17 11:19 36.7 80 20 165/78 (107) 93 Nasal Cannula 2.0 Physical Exam General Appearance: + mild distress Respiratory/Chest: lungs clear, normal breath sounds, no respiratory distress, no accessory muscle use Cardiovascular: regular rate, rhythm, no murmur Abdomen: non tender, soft, + distended Extremities: normal inspection, no pedal edema Neurologic/Psychiatric: no motor/sensory deficits, alert, normal mood/affect Laboratory Results Last 24 Hours Test 02/02/17 11:14 02/02/17 14:00 02/02/17 16:14 02/02/17 19:52 Bedside Glucose 184 mg/dl 189 mg/dl 282 mg/dl Urine Color YELLOW Urine Appearance CLEAR Urine pH 7.0 Urine Specific [place] 1.017 Urine Protein TRACE Urine Glucose (UA) NEG Urine Ketones NEG Urine Occult Blood NEG Urine Nitrite NEG Urine Bilirubin NEG Urine Urobilinogen NEG Urine Leukocyte Esterase NEG Urine WBC (Auto) 0 /hpf Urine RBC (Auto) 0-4 /hpf Urine Hyaline Casts (Auto) 0 /lpf Urine Epithelial Cells (Auto) 0-5 /lpf Urine Bacteria (Auto) NEG Test 02/03/17 04:53 White Blood Count 4.63 K/uL Red Blood Count 3.01 M/uL Hemoglobin 8.6 g/dL Hematocrit 26.2 % Mean Corpuscular Volume 87.0 fL Mean Corpuscular Hemoglobin 28.6 pg Mean Corpuscular Hemoglobin Concent 32.8 g/dl Platelet Count 199 K/uL Mean Platelet Volume 8.6 fL Neutrophils (%) (Auto) 61.5 % Lymphocytes (%) (Auto) 21.0 % Monocytes (%) (Auto) 11.9 % Eosinophils (%) (Auto) 4.8 % Basophils (%) (Auto) 0.4 % Neutrophils # (Auto) 2.85 K/uL Lymphocytes # (Auto) 0.97 K/uL Monocytes # (Auto) 0.55 K/uL Eosinophils # (Auto) 0.22 K/uL Basophils # (Auto) 0.02 K/uL RDW Standard Deviation 43.1 fL RDW Coefficient of Variation 13.8 % Immature Granulocyte % (Auto) 0.4 % Immature Granulocyte # (Auto) 0.02 K/uL Ovalocytes 1+ Sodium Level 138 mmol/L Potassium Level 3.9 mmol/L Chloride Level 100 mmol/L Carbon Dioxide Level 30 mmol/L Anion Gap 8.0 mmol/L Blood Urea Nitrogen 17 mg/dl Creatinine 1.10 mg/dl Est Creatinine Clear Calc Drug Dose 90.9 ml/min Estimated GFR () 89.6 Estimated GFR (Non- 77.3 BUN/Creatinine Ratio 15.3 Random Glucose 297 mg/dl Calcium Level 7.9 mg/dl Magnesium Level 1.6 mg/dl Total Bilirubin 0.2 mg/dl Aspartate Amino Transf (AST/SGOT) 9 U/L Alanine Aminotransferase (ALT/SGPT) 28 U/L Alkaline Phosphatase 117 U/L Total Protein 6.6 gm/dl Albumin 2.5 gm/dl Globulin 4.1 gm/dl Albumin/Globulin Ratio 0.6 Lipase 34 U/L Vancomycin Level Trough 14.3 mcg/ml Assessment and Plan This is a 51 year old male with a PMH of NSCLC stage 3 with incomplete chemotherapy secondary to nausea/vomiting and intolerance; 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 of seizure disorder - recently admitted for infected and leaking intrathecal pump with surgical repair and on long-term antibiotics - presents secondary to worsening back pain and worsening nausea/vomiting Persistent Intrathecal Pump Leakage and Infection Left Paraspinal Abscess Abdominal/Pelvis CT suggests a persistent abscess around 4.2cm was discharged on 01/31 - during that admission, he had an I&D and stopped CSF leakage He had a PICC line put in and was discharged on 6 weeks of Vancomycin He returned to the ER due to worsening pain, and he states he heard a "pop" and more drainage was coming out of the intrathecal pump The abscess persists - patient is now on Cefepime, Clindamycin, and Vancomycin will consult ID for further antibiotics recommendations consulted pain management and orthopedic surgery in case the abscess needs to be drained no white count, afebrile, and hemodynamically stable; cultures pending Possible Aspiration Pneumonia patient has had issues with nausea/vomiting He presented with some shortness of breath issues CXR suggests right perihilar and medial right lung base opacities suggesting atelectasis or pneumonia added Clindamycin for anaerobic coverage currently, he is not hypoxic Anasarca likely from low protein will give one dose of IV Lasix add boost glucose control Persistent Nausea/Vomiting he has a gastric pacemaker in, unfortunately, he still has persistent n/v will try one dose of [place] continue Zofran PRN advance diet as tolerated Chronic Pain on Long-Term Opioids would appreciate pain management input certainly, patient seems to have more of a need of opioids due to increased tolerance currently on PO hydromorphone 4mg q3hrs PRN will try to avoid IV narcotics Insulin Dependent DM2 currently on Lantus 12 units BID insulin sliding scale monitor blood sugars - he presented with hypoglycemia; now slightly hyperglycemic, we will monitor Hx. of Seizure Disorder continue Keppra HTN continue Amlodipine and Lopressor will monitor BP and adjust accordingly, though increasing due to anxiety/ agitation/pain will consider adding ESTRELLA-I, unsure of why he is not on an ESTRELLA-I or an ARB due to DM - possible adverse reaction? DVT ppx SCDs FULL CODE
[2017-02-03] MEDS: PROMETHAZINE HCL INJ 12.5 MG in SODIUM CHLORIDE 0.9% 50ML 50 ML IV PRN ×2 (08:38→22:03)
--- NOTE | 2017-02-03 09:16 | ECHOCARDIOGRAM REPORT ---
*NOTICE TO RECEIVING LIBERTARIAN AGENCY This information is strictly Confidential and protected under [place] law. [place] law prohibits you from making any further disclosure of this information unless further disclosure is expressly permitted by the written consent of the person to whom it pertains or is authorized by law. A general authorization for the release of medical or other information is not sufficient for this purpose. Hospital accepts no responsibility if the information is made available to any other person, INCLUDING THE PATIENT. Interpretation Summary * Name: NIKHLI MARTINS Study Date: 02/02/2017 09:28 AM * Patient Location: .2T\S\E219\S\1 HR: 79 * : 1965 (M/d/yyyy) Gender: Male Height: 68 in * Age: 51 yrs Ethnicity: [place] Weight: 222 lb * Ordering Physician: Darian Chinchilla * Referring Physician: Self, Referred * Performed By: Darian Chahal RDCS * * Reason For Study: SOB, bilateral pleural effusions * BSA: 2.1 m2 * -- Conclusions -- * The left ventricle is normal in size. * There is moderate concentric left ventricular hypertrophy. * The left ventricular wall motion is normal. * Left ventricular systolic function is normal. * Ejection Fraction = 60-65%. * There is moderate mitral regurgitation. * There is mild tricuspid regurgitation. * Right ventricular systolic pressure is moderately elevated at 40-50mmHg. * There is no pericardial effusion. Procedure Details * A complete two-dimensional transthoracic echocardiogram was performed (2D, M-mode, Doppler and color flow Doppler). * The study was technically adequate. Left Ventricle * The left ventricle is normal in size. * There is moderate concentric left ventricular hypertrophy. * Left ventricular systolic function is normal. * Ejection Fraction = 60-65%. * The left ventricular wall motion is normal. Right Ventricle * The right ventricle is normal size. * The right ventricular systolic function is normal. Atria * The left atrial size is normal. * Right atrial size is normal. * There is no evidence of atrial septal defect, but resolution does not allow assessment for a patent foramen ovale. Mitral Valve * The mitral valve leaflets appear thickened, but open well. * There is no mitral valve stenosis. * There is moderate mitral regurgitation. Tricuspid Valve * The tricuspid valve anatomy is normal. * There is no tricuspid stenosis. * There is mild tricuspid regurgitation. * Right ventricular systolic pressure is elevated at 40-50mmHg. Aortic Valve * The aortic valve is trileaflet. * Aortic stenosis is absent. * There is no significant aortic regurgitation. Pulmonic Valve * The pulmonary valve is not well seen, but the Doppler examination is normal without significant regurgitation or stenosis. Great Vessels * The aortic root and proximal ascending aorta are normal sized. Pericardium/Pleural * There is no pericardial effusion. Great Vessels * The inferior vena cava is mildly dilated. MMode 2D Measurements and Calculations IVSd 1.2 cm IVSs 1.7 cm LVIDd 4.5 cm LVIDs 3.3 cm LVPWd 1.2 cm LVPWs 1.5 cm IVS/LVPW 0.94 FS 25.1 % EDV(Teich) 90.5 ml ESV(Teich) 45.4 ml EF(Teich) 49.9 % EDV(cubed) 88.7 ml ESV(cubed) 37.2 ml EF(cubed) 58.1 % % IVS thick 46.8 % % LVPW thick 20.3 % LV mass(C)d 195.1 grams LV mass(C)dI 91.3 grams/m\S\2 LV mass(C)s 201.5 grams LV mass(C)sI 94.3 grams/m\S\2 SV(Teich) 45.1 ml SI(Teich) 21.1 ml/m\S\2 SV(cubed) 51.5 ml SI(cubed) 24.1 ml/m\S\2 EPSS 0.65 cm Ao root diam 3.6 cm Ao root area 10.0 cm\S\2 ACS 2.1 cm LA dimension 4.6 cm asc Aorta Diam 3.4 cm LA/Ao 1.3 LVOT diam 2.2 cm LVOT area 3.9 cm\S\2 LVAd ap4 36.9 cm\S\2 LVLd ap4 8.8 cm EDV(MOD-sp4) 126.0 ml LVAs ap4 20.3 cm\S\2 LVLs ap4 7.6 cm ESV(MOD-sp4) 45.8 ml EF(MOD-sp4) 63.7 % LVAd ap2 38.8 cm\S\2 LVLd ap2 9.0 cm EDV(MOD-sp2) 142.0 ml LVAs ap2 21.3 cm\S\2 LVLs ap2 7.2 cm ESV(MOD-sp2) 54.4 ml EF(MOD-sp2) 61.7 % SV(MOD-sp4) 80.2 ml SI(MOD-sp4) 37.5 ml/m\S\2 SV(MOD-sp2) 87.6 ml SI(MOD-sp2) 41.0 ml/m\S\2 Doppler Measurements and Calculations MV E max wilder 113.0 cm/sec MV A max wilder 98.8 cm/sec MV E/A 1.1 MV dec time 0.15 sec Ao V2 max 128.6 cm/sec Ao max PG 6.6 mmHg Ao max PG (full) 1.5 mmHg EVIE(V,A) 3.4 cm\S\2 EVIE(V,D) 3.4 cm\S\2 LV V1 max PG 5.1 mmHg LV V1 max 112.7 cm/sec PA V2 max 86.9 cm/sec PA max PG 3.0 mmHg PA acc slope 713.2 cm/sec\S\2 PA acc time 0.11 sec TR max wilder 321.9 cm/sec PA pr(Accel) 30.7 mmHg
[2017-02-03] MEDS ORDERED: FUROSEMIDE INJ 40 MG in SYRINGE 0 ML IV ONE (09:30)
--- NOTE | 2017-02-03 09:35 | Progress Note ---
Progress Note Date of Service Feb 03, 2017. Progress Note ID Consult Dictated #[id number] A/P: 1. Infected pain pump - MSSA 2. Abscess at pump site -continue abx, if culture negative, will stop cefepime and clinda -may require pump removal -will follow, thank you
[2017-02-03] MEDS ORDERED: BOOST GLUCOSE CONTROL PO SCH (11:30)
--- NOTE | 2017-02-03 14:05 | Pharmacy Progress Note ---
Pharmacy Abx Dose Progress Nt Date of Service Feb 03, 2017. Pharmacy Dosing Scope The patient WAS receiving the following antimicrobial agents per Pharmacy consult: Vancomycin 1250 mg IV every 24 hours. Dosing now changed based on trough level. Objective Height (Feet): 5 Height (Inches): 8.00 Weight (Kilograms): 98.500 Vital Signs (Past 12Hrs) Vital Signs Past 12 Hours Date Time Temp Pulse Resp B/P (MAP) Pulse Ox O2 Delivery O2 Flow Rate FiO2 02/03/17 13:42 92 16 86 Room Air 02/03/17 12:05 36.7 89 20 172/99 (123) 97 Room Air 02/03/17 12:00 Room Air 02/03/17 08:00 Room Air 02/03/17 07:42 36.6 99 20 167/88 (114) 93 Room Air 02/03/17 07:11 82 16 90 Room Air 02/03/17 04:00 92 Room Air 02/03/17 03:14 36.8 93 18 153/76 (101) 95 Room Air 02/03/17 02:17 91 16 94 Room Air Lab Results (24Hrs) Item Value Date Time Vancomycin Level Trough 14.3 mcg/ml 02/03/17 0453 Laboratory Tests (24 Hours) Test 02/03/17 04:53 White Blood Count 4.63 K/uL (4.8-10.8) L Red Blood Count 3.01 M/uL (4.7-6.1) L Hemoglobin 8.6 g/dL (14.0-18.0) L Hematocrit 26.2 % (42-52) L Mean Corpuscular Volume 87.0 fL (80-100) Mean Corpuscular Hemoglobin 28.6 pg (25-34) Mean Corpuscular Hemoglobin Concent 32.8 g/dl (32-36) Platelet Count 199 K/uL (130-400) Mean Platelet Volume 8.6 fL (7.4-10.4) Neutrophils (%) (Auto) 61.5 % Lymphocytes (%) (Auto) 21.0 % Monocytes (%) (Auto) 11.9 % Eosinophils (%) (Auto) 4.8 % Basophils (%) (Auto) 0.4 % Neutrophils # (Auto) 2.85 K/uL (1.4-6.5) Lymphocytes # (Auto) 0.97 K/uL (1.2-3.4) L Monocytes # (Auto) 0.55 K/uL (0.11-0.59) Eosinophils # (Auto) 0.22 K/uL (0-0.5) Basophils # (Auto) 0.02 K/uL (0-0.2) Micro Results Date/Time Source Procedure Growth Status 02/01/17 22:21 Blood Blood Culture - Preliminary NO GROWTH TO DATE. Resulted 02/01/17 21:50 Blood Blood Culture - Preliminary NO GROWTH TO DATE. Resulted 02/03/17 10:35 Incision Site Back Gram Stain - Final Resulted 02/03/17 10:35 Incision Site Back Bacterial Culture Pending Resulted Assessment & Plan Assessment 51 year old male receiving Vancomycin for treatment of possible Pneumonia and abscess around intrathecal pump which has been an ongoing indication and requires 6 weeks of therapy per ID. Patient has had multiple admissions recently. Day # 16 of antimicrobial therapy. Plan Vancomycin IV * Trough level of 14.3 mcg/mL is sub-therapeutic but almost therapeutic. * Dosing increased to 1500 mg which is 15 mg/kg/dose IV every 24 hours. * Goal trough level: 15 to 20 mcg/mL * Trough level ordered for: 02/06 @ 4356. Pharmacy will continue to follow and will adjust dose/frequency as necessary. Thank you.
[2017-02-03] MEDS: BOOST GLUCOSE CONTROL PO SCH (17:12)
[2017-02-03] MEDS: ONDANSETRON INJ 2 MG/ML 2 ML VIAL IV PRN (18:22)
--- NOTE | 2017-02-03 20:32 | INFECT. DISEASE CONSULTATION ---
DATE OF CONSULTATION: 02/03/2017 REQUESTING PHYSICIAN: Dr. Barfield. HISTORY OF PRESENT ILLNESS: This is a 51-year-old gentleman who has a history of an infected intrathecal pain pump which is growing MSSA from multiple previous cultures. He was just recently discharged on IV vancomycin. He was readmitted secondary to worsening back pain. He has a known 4 plus cm collection around the pain pump site. He continues to have leakage from this area. A repeat CAT scan was done this morning and again shows a 4.2 cm abscess at the pain pump insertion site. He has been afebrile since admission. His white blood cell count is normal. His blood cultures are pending. He was placed on vancomycin, clindamycin, and cefepime empirically. His only complaint on my exam is the pain. All remaining review of systems is reviewed and is unremarkable. PAST MEDICAL HISTORY: Significant for lung cancer, gastroparesis, chronic pain with pain pump, hypertension, type 2 diabetes, anemia, and seizure disorder. PAST SURGICAL HISTORY: Significant for lung surgery and pain pump insertion. FAMILY HISTORY: Noncontributory. ALLERGIES: HE HAS ALLERGIES TO PENICILLIN. SOCIAL HISTORY: Significant for history of tobacco use. He denies any alcohol or drug use. CURRENT MEDICATIONS: Include Lantus, Boost, Lasix, magnesium, Ativan, Zofran, subQ heparin, Dilaudid, Norvasc, Ecotrin, folic acid, Neurontin, Keppra, Lopressor, Protonix, Effexor, multivitamins, Atrovent, Xopenex, cefepime, vancomycin, clindamycin, and Tylenol. PHYSICAL EXAMINATION: VITAL SIGNS: He is afebrile, pulse 99, respiratory rate is 20, blood pressure is 167/88 and oxygen saturation is 93% on room air. GENERAL: He is awake, alert, oriented x3; he is in no acute distress. HEENT: Mucous membranes are moist. Extraocular muscles are intact. HEART: Regular. LUNGS: Clear. ABDOMEN: Soft. Dressing is saturated with clear fluid. There is no surrounding erythema. This is tender to palpation. There is no edema bilaterally. LABORATORY STUDIES: CBC reveals a white blood cell count of 4.6, hemoglobin 8.6 and platelets are 199. Chemistry panel reveals a sodium of 138, potassium 3.9, chloride 100, bicarbonate 30, BUN 17, creatinine 1.1, glucose is 150. LFTs are within normal limits. Urinalysis was negative. Blood cultures are pending. IMAGING: As above. Echocardiogram was done today and does not show any evidence of vegetation. ASSESSMENT AND PLAN: Infected pain pump with large abscess. He will remain on empiric antibiotics; however, I doubt a new infection. If blood cultures remain negative, is cefepime and clindamycin will be discontinued and he will remain on IV vancomycin for a prolonged course as was discussed prior to his discharge; however, he may require pump removal and I&D for symptom control.
[2017-02-03] MEDS: INSULIN GLARGINE SOLOSTAR 100 UNITS/ML 3 ML PEN SC SCH (20:42)
[2017-02-04] VITALS (12 sets, daily range): BP systolic 142–171; BP diastolic 78–100; PULSE 60–100; TEMP 36.7–37.3; O2SAT 65–99
[2017-02-04] MEDS: LEVALBUTEROL 1.25MG/0.5ML NEB INH SCH ×4 (01:50→19:26)
[2017-02-04] MEDS: IPRATROPIUM BROMIDE NEB SOLN 0.02% 2.5 ML VIAL INH SCH ×4 (01:50→19:26)
[2017-02-04] MEDS: HYDROmorphone HCL 2 MG TAB PO PRN ×6 (02:05→20:36)
[2017-02-04] MEDS: ONDANSETRON INJ 2 MG/ML 2 ML VIAL IV PRN ×3 (02:05→16:18)
[2017-02-04] MEDS: CLINDAMYCIN IV 600 MG in DEXTROSE 5% 50ML 50 ML IV SCH ×3 (03:37→20:37)
[2017-02-04] MEDS: VANCOMYCIN INJ 1,500 MG in SODIUM CHLORIDE 0.9% 500ML 500 ML IV SCH (03:37)
[2017-02-04] MEDS: BOOST GLUCOSE CONTROL PO SCH ×3 (07:44→16:45)
[2017-02-04] MEDS: INSULIN ASPART 100 UNITS/ML 3 ML PEN SC SCH ×4 (07:44→21:01)
[2017-02-04 08:15] LABS: BUN/CREATININE RATIO 13.8 (10-20); CALCIUM 8.3 mg/dl (8.5-10.1); CREATININE 1.2 mg/dl (0.60-1.40); MAGNESIUM 1.8 mg/dl (1.8-2.4); POTASSIUM 4.2 mmol/L (3.5-5.1)
[2017-02-04] MEDS: CEFEPIME IV 2000 MG in DEXTROSE 5% 100ML IV SCH ×3 (08:45→23:40)
[2017-02-04] MEDS: CEROVITE ADV FORMULA TAB PO SCH (09:14)
[2017-02-04] MEDS: ASPIRIN 81 MG ECTAB PO SCH (09:14)
[2017-02-04] MEDS: DOCUSATE SODIUM/SENNA 50/8.6MG TAB PO SCH (09:15)
[2017-02-04] MEDS: AMLODIPINE BESYLATE 5 MG TAB PO SCH (09:16)
[2017-02-04] MEDS: METOPROLOL TARTRATE 25 MG TAB PO SCH ×2 (09:17→20:35)
[2017-02-04] MEDS: PANTOprazole SOD 40 MG TAB PO SCH (09:17)
[2017-02-04] MEDS: GABAPENTIN 600 MG TAB PO SCH ×3 (09:18→20:35)
[2017-02-04] MEDS: LEVETIRACETAM 250 MG TAB PO SCH ×2 (09:19→20:35)
[2017-02-04] MEDS: LISINOPRIL 5 MG TAB PO SCH (09:21)
[2017-02-04] MEDS: VENLAFAXINE HCL XR 37.5 MG CAPXR PO SCH (09:21)
[2017-02-04] MEDS: INSULIN GLARGINE SOLOSTAR 100 UNITS/ML 3 ML PEN SC SCH ×2 (09:26→21:02)
[2017-02-04] MEDS ORDERED: FUROSEMIDE INJ 40 MG in SYRINGE 0 ML IV ONE (09:30)
--- NOTE | 2017-02-04 09:53 | DIAGNOSTIC IMAGING REPORT ---
CHEST ONE VIEW PORTABLE CLINICAL HISTORY: 51 years-old Male presenting with F/U ON PNEUMONIA. TECHNIQUE: Portable upright AP view of the chest was obtained. COMPARISON: 02/01/2017. FINDINGS: Right upper extremity PICC terminates in the upper SVC. Atherosclerosis of aortic arch. Cardiac silhouette remains mildly prominent allowing for portable AP technique. Persistent bandlike the hand hazy basilar opacities in the left lung with increased size of the left pleural effusion. Right lung and pleural space clear. Osseous structures normal. Upper abdomen normal. IMPRESSION: 1. Persistent left lung opacities with increasing left pleural effusion. Electronically signed by: Ronnell Renee M.D. 02/04/2017 9:52 AM Dictated Date/Time: 02/04/2017 9:51 AM
--- NOTE | 2017-02-04 10:03 | Progress Note ---
Subjective Date of Service: Feb 04, 2017. Subjective Pt evaluation today including: conversation w/ patient, physical exam, lab review, review of studies, review of inpatient medication list Saw/examined the patient in room 219 Is about the same, continues to have nausea/vomiting Had drainage from his back surgical site yesterday; no drainage today +swelling of b/l calf and legs Problem List Medical Problems: (1) Acute kidney injury Status: Acute (2) Altered mental status Status: Acute (3) Anemia Status: Acute (4) Chronic pain Status: Acute (5) Dehydration Status: Acute (6) Dehydration Status: Acute (7) Dehydration Status: Acute (8) Dehydration Status: Acute (9) Diabetes mellitus with hyperglycemia Status: Acute (10) Failure of outpatient treatment Status: Acute (11) Hypomagnesemia Status: Acute (12) Hypomagnesemia Status: Acute (13) Intractable vomiting Status: Acute (14) Intractable vomiting Status: Acute (15) Intrathecal pump infection Status: Acute (16) Orthostatic hypotension Status: Acute (17) Pneumonia Status: Acute (18) Post-operative complication Status: Acute (19) Sepsis Status: Acute (20) Vomiting Status: Acute (21) Vomiting Status: Acute Review of Systems Constitutional: No fever, No chills Respiratory: No shortness of breath Cardiac: No chest pain Abdomen: + nausea, + vomiting, No pain, No diarrhea Musculoskeletal: + see HPI, + joint pain Medications Current Inpatient Medications Medications (Trade) Dose Ordered Sig/Cal Route Start Time Stop Time Status Last Admin Dose Admin Acetaminophen (Tylenol Tab) 650 mg Q4H PRN PO 02/02/17 03:45 03/04/17 03:44 02/02/17 19:28 650 MG Glucose (Glucose 40% Gel) 15-30 GRAMS 15 GRAMS... UD PRN PO 02/02/17 03:45 03/04/17 03:44 Glucose (Glucose Chew Tab) 4-8 Tablets 4 Tabl... UD PRN PO 02/02/17 03:45 03/04/17 03:44 Dextrose (Dextrose 50% 50ML Syringe) 25-50ML OF 50% DW IV FOR... UD PRN IV 02/02/17 03:45 03/04/17 03:44 Glucagon (Glucagon Inj) 1 mg UD PRN SQ 02/02/17 03:45 03/04/17 03:44 Clindamycin Phosphate 600 mg/ Dextrose 54 ml @ 100 mls/hr Q8H IV 02/02/17 04:00 02/09/17 03:59 02/04/17 03:37 100 MLS/HR Clindamycin Phosphate (Consult) 1 ea UD PRN N/A 02/02/17 04:45 03/04/17 04:44 Aspirin (Ecotrin Tab) 81 mg QAM PO 02/02/17 09:00 03/04/17 08:59 02/04/17 09:14 81 MG Folic Acid (Folvite Tab) 1 mg QAM PO 02/02/17 09:00 03/04/17 08:59 02/04/17 09:18 1 MG Gabapentin (Neurontin Tab) 600 mg TID PO 02/02/17 09:00 03/04/17 08:59 02/04/17 09:18 600 MG Levetiracetam (Keppra Tab) 750 mg BID PO 02/02/17 09:00 03/04/17 08:59 02/04/17 09:19 750 MG Metoprolol Tartrate (Lopressor Tab) 25 mg BID PO 02/02/17 09:00 03/04/17 08:59 02/04/17 09:17 25 MG Pantoprazole Sodium (Protonix Tab) 40 mg QAM PO 02/02/17 09:00 03/04/17 08:59 02/04/17 09:17 40 MG Venlafaxine HCl (effeXOR EXTENDED REL CAP) 37.5 mg QAM PO 02/02/17 09:00 03/04/17 08:59 02/04/17 09:21 37.5 MG Multivitamins/ Minerals (Multivitamin W/ Minerals Tab) 1 tab QAM PO 02/02/17 09:00 03/04/17 08:59 02/04/17 09:14 1 TAB Ipratropium [place] (Atrovent 0.02% 0.5MG/2.5ML Neb) 0.5 mg Q6R INH 02/02/17 09:00 03/04/17 08:59 02/04/17 07:26 0.5 MG Levalbuterol (Xopenex 1.25MG/ 0.5ML Neb) 1.25 mg Q6R INH 02/02/17 09:00 03/04/17 08:59 02/04/17 07:26 1.25 MG Ipratropium [place] (Atrovent 0.02% 0.5MG/2.5ML Neb) 0.5 mg Q4H PRN INH 02/02/17 04:00 03/04/17 03:59 Levalbuterol (Xopenex 1.25MG/ 0.5ML Neb) 1.25 mg Q4H PRN INH 02/02/17 04:00 03/04/17 03:59 Cefepime HCl (Consult) 1 ea UD PRN N/A 02/02/17 04:45 03/04/17 04:44 Vancomycin HCl (Consult) 1 ea UD PRN N/A 02/02/17 04:45 03/04/17 04:44 Cefepime HCl 2000 mg/Dextrose 112.5 ml @ 225 mls/hr Q8H IV 02/02/17 08:00 02/09/17 07:59 02/04/17 08:45 225 MLS/HR Senna/Docusate Sodium (Senokot S Tab) 1 tab QAM PO 02/02/17 09:00 03/04/17 08:59 02/04/17 09:15 1 TAB Hydromorphone HCl (Dilaudid Tab) 4 mg Q3HWA PRN PO 02/02/17 16:15 02/16/17 03:44 02/04/17 08:02 4 MG Heparin Sodium (Porcine) (Heparin 10 Unit/ ml 5 ml Flush) 5 ml PRN PRN FLUSH 02/03/17 00:30 03/05/17 00:29 02/04/17 09:30 5 ML Ondansetron HCl (Zofran Inj) 4 mg Q6H PRN IV 02/03/17 02:45 03/05/17 02:44 02/04/17 08:01 4 MG Promethazine HCl 12.5 mg/Sodium Chloride 50.5 ml @ 204 mls/hr Q6H PRN IV 02/03/17 02:45 03/05/17 02:44 02/03/17 22:03 204 MLS/HR Ioversol (Optiray 320) 100 ml UD PRN IV 02/03/17 05:00 02/07/17 04:59 Lorazepam (Ativan Inj) 0.25 mg Q6H PRN IV 02/03/17 06:00 03/05/17 05:59 02/03/17 23:03 0.25 MG Insulin Aspart (novoLOG ASPART) SLIDING SCALE If C... ACHS SC 02/03/17 11:00 03/04/17 10:59 02/04/17 07:44 3 UNITS Insulin Glargine (Lantus Solostar Pen) 12 units BID SC 02/03/17 21:00 03/04/17 08:59 02/04/17 09:26 12 UNITS Vancomycin HCl 1500 mg/Sodium Chloride 530 ml @ 200 mls/hr Q24H IV 02/04/17 04:00 03/02/17 23:59 02/04/17 03:37 200 MLS/HR Enteral Nutritional Formula (Boost Glucose Control) 1 can TIDM PO 02/03/17 16:45 03/05/17 16:44 02/04/17 07:44 1 CAN Amlodipine Besylate (Norvasc Tab) 10 mg DAILY PO 02/04/17 09:00 03/04/17 08:59 02/04/17 09:16 10 MG Lisinopril (Zestril Tab) 5 mg QAM PO 02/04/17 09:00 03/06/17 08:59 02/04/17 09:21 5 MG Objective Vital Signs Date Time Temp Pulse Resp B/P (MAP) Pulse Ox O2 Delivery O2 Flow Rate FiO2 02/04/17 08:00 Room Air 02/04/17 07:26 60 16 65 Room Air 02/04/17 07:23 37.3 90 13 171/100 (123) 99 Nasal Cannula 2.0 02/04/17 04:10 36.9 95 18 145/81 (102) 95 Oxymask 2.0 02/04/17 04:00 94 Nasal Cannula 2.0 02/04/17 01:50 100 16 94 Room Air 02/03/17 23:59 94 Room Air 02/03/17 23:27 36.6 101 18 168/92 (117) 94 Room Air 02/03/17 20:08 36.5 103 18 167/86 (113) 94 Room Air 02/03/17 20:00 94 Room Air 02/03/17 19:21 96 16 93 Room Air 02/03/17 16:00 Room Air 02/03/17 15:16 36.7 100 18 179/89 (119) 94 Room Air 02/03/17 13:42 92 16 86 Room Air 02/03/17 12:05 36.7 89 20 172/99 (123) 97 Room Air 02/03/17 12:00 Room Air Physical Exam General Appearance: + mild distress (secondary to pain) Respiratory/Chest: chest non-tender, lungs clear, normal breath sounds, no respiratory distress, no accessory muscle use Cardiovascular: regular rate, rhythm, no murmur Extremities: + swelling (b/l calf), + pertinent finding (back wound currently dressed, no drainage at this time) Laboratory Results Last 24 Hours Test 02/03/17 11:26 02/03/17 11:42 02/03/17 16:09 02/03/17 20:07 Bedside Glucose 57 mg/dl 70 mg/dl 232 mg/dl 228 mg/dl Test 02/04/17 06:55 02/04/17 07:05 02/04/17 07:08 Bedside Glucose 104 mg/dl 177 mg/dl Sodium Level 141 mmol/L Potassium Level 4.2 mmol/L Chloride Level 101 mmol/L Carbon Dioxide Level 33 mmol/L Anion Gap 7.0 mmol/L Blood Urea Nitrogen 17 mg/dl Creatinine 1.20 mg/dl Est Creatinine Clear Calc Drug Dose 83.1 ml/min Estimated GFR () 80.7 Estimated GFR (Non- 69.6 BUN/Creatinine Ratio 13.8 Random Glucose 109 mg/dl Calcium Level 8.3 mg/dl Phosphorus Level 5.0 mg/dl Magnesium Level 1.8 mg/dl Assessment and Plan This is a 51 year old male with a PMH of NSCLC stage 3 with incomplete chemotherapy secondary to nausea/vomiting and intolerance; 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 of seizure disorder - recently admitted for infected and leaking intrathecal pump with surgical repair and on long-term antibiotics - presents secondary to worsening back pain and worsening nausea/vomiting Persistent Intrathecal Pump Leakage and Infection Left Paraspinal Abscess 02/04 appreciate pain management input if drainage persists, may need to transfer to a facility with neurosurgery will evaluate later in the afternoon appreciate ID input continue empiric abx. if cultures remain negative, will d/c Clinda and Cefepime and continue Vancomycin 02/03 Abdominal/Pelvis CT suggests a persistent abscess around 4.2cm was discharged on 01/31 - during that admission, he had an I&D and stopped CSF leakage He had a PICC line put in and was discharged on 6 weeks of Vancomycin He returned to the ER due to worsening pain, and he states he heard a "pop" and more drainage was coming out of the intrathecal pump The abscess persists - patient is now on Cefepime, Clindamycin, and Vancomycin will consult ID for further antibiotics recommendations consulted pain management and orthopedic surgery in case the abscess needs to be drained no white count, afebrile, and hemodynamically stable; cultures pending Bilateral Lower Extremity Swelling possibly related to low protein added boost TID check dopplers b/l lE HTN 02/04 blood pressure uncontrolled increased Amlodipine to 10mg daily continue Lopressor added Lisinopril 02/03 continue Amlodipine and Lopressor will monitor BP and adjust accordingly, though increasing due to anxiety/ agitation/pain will consider adding ESTRELLA-I, unsure of why he is not on an ESTRELLA-I or an ARB due to DM - possible adverse reaction? Possible Aspiration Pneumonia patient has had issues with nausea/vomiting He presented with some shortness of breath issues CXR suggests right perihilar and medial right lung base opacities suggesting atelectasis or pneumonia added Clindamycin for anaerobic coverage currently, he is not hypoxic Anasarca likely from low protein will give one dose of IV Lasix add boost glucose control Persistent Nausea/Vomiting he has a gastric pacemaker in, unfortunately, he still has persistent n/v will try one dose of Emend continue Zofran PRN advance diet as tolerated Chronic Pain on Long-Term Opioids would appreciate pain management input certainly, patient seems to have more of a need of opioids due to increased tolerance currently on PO hydromorphone 4mg q3hrs PRN will try to avoid IV narcotics Insulin Dependent DM2 currently on Lantus 12 units BID insulin sliding scale monitor blood sugars - he presented with hypoglycemia; now slightly hyperglycemic, we will monitor Hx. of Seizure Disorder continue Keppra DVT ppx SCDs FULL CODE
--- NOTE | 2017-02-04 10:46 | Progress Note ---
Subjective Date of Service: Feb 04, 2017. Subjective pt with superficial culture yesterday, negative so far. blood cultures negative , ? transfer. afebrile. tolerating abx. Problem List Medical Problems: (1) Acute kidney injury Status: Acute (2) Altered mental status Status: Acute (3) Anemia Status: Acute (4) Chronic pain Status: Acute (5) Dehydration Status: Acute (6) Dehydration Status: Acute (7) Dehydration Status: Acute (8) Dehydration Status: Acute (9) Diabetes mellitus with hyperglycemia Status: Acute (10) Failure of outpatient treatment Status: Acute (11) Hypomagnesemia Status: Acute (12) Hypomagnesemia Status: Acute (13) Intractable vomiting Status: Acute (14) Intractable vomiting Status: Acute (15) Intrathecal pump infection Status: Acute (16) Orthostatic hypotension Status: Acute (17) Pneumonia Status: Acute (18) Post-operative complication Status: Acute (19) Sepsis Status: Acute (20) Vomiting Status: Acute (21) Vomiting Status: Acute Objective Vital Signs Date Time Temp Pulse Resp B/P (MAP) Pulse Ox O2 Delivery O2 Flow Rate FiO2 02/04/17 08:00 Room Air 02/04/17 07:26 60 16 65 Room Air 02/04/17 07:23 37.3 90 13 171/100 (123) 99 Nasal Cannula 2.0 02/04/17 04:10 36.9 95 18 145/81 (102) 95 Oxymask 2.0 02/04/17 04:00 94 Nasal Cannula 2.0 02/04/17 01:50 100 16 94 Room Air 02/03/17 23:59 94 Room Air 02/03/17 23:27 36.6 101 18 168/92 (117) 94 Room Air 02/03/17 20:08 36.5 103 18 167/86 (113) 94 Room Air 02/03/17 20:00 94 Room Air 02/03/17 19:21 96 16 93 Room Air 02/03/17 16:00 Room Air 02/03/17 15:16 36.7 100 18 179/89 (119) 94 Room Air 02/03/17 13:42 92 16 86 Room Air 02/03/17 12:05 36.7 89 20 172/99 (123) 97 Room Air 02/03/17 12:00 Room Air Laboratory Results Item Value Date Time Gram Stain - Final Resulted 02/03/17 1035 Incision Site Back Last 24 Hours Test 02/03/17 11:26 02/03/17 11:42 02/03/17 16:09 02/03/17 20:07 Bedside Glucose 57 mg/dl 70 mg/dl 232 mg/dl 228 mg/dl Test 02/04/17 06:55 02/04/17 07:05 02/04/17 07:08 Bedside Glucose 104 mg/dl 177 mg/dl Sodium Level 141 mmol/L Potassium Level 4.2 mmol/L Chloride Level 101 mmol/L Carbon Dioxide Level 33 mmol/L Anion Gap 7.0 mmol/L Blood Urea Nitrogen 17 mg/dl Creatinine 1.20 mg/dl Est Creatinine Clear Calc Drug Dose 83.1 ml/min Estimated GFR () 80.7 Estimated GFR (Non- 69.6 BUN/Creatinine Ratio 13.8 Random Glucose 109 mg/dl Calcium Level 8.3 mg/dl Phosphorus Level 5.0 mg/dl Magnesium Level 1.8 mg/dl Assessment and Plan (1) Infection of intrathecal pump Assessment & Plan: continue abx, follow cultures. may need removal.
--- NOTE | 2017-02-04 14:41 | Pain Management Consultation ---
Pain Management Consultation Date of Consultation Feb 04, 2017. Reason for Consultation Possible recurrent CSF leak status post implantation of intrathecal pump History Mr. Jc is a 51-year-old white male who is well known to the pain service with a history of chronic intractable neuropathic pain who underwent implantation of intrathecal pump and catheter delivery system on 12/25/2016. Patient initially appeared to be healing appropriately at his follow-up visit on 01/02/2017, however was admitted from 01/14/2017 through 01/31/2017 with complaints of CSF drainage from his lumbar incision. He underwent repair of a CSF leak 2 during his last admission. In addition he had a myelogram last admission showing no significant continued CSF leak. He reports that he felt a "pop" in his lumbar spine 2 days ago and after that he had a significant amount of lumbar incision clear drainage. He denies any fevers, chills, erythema, purulent drainage. He denies complaints of positional headache he reports that his pain is still diffuse and all over but does agree that his pain control is improved with the pump compared to prior to pump implantation. He continues to utilize oral hydromorphone for assistance in diminishing his pain. He reports continued vomiting over the past few days and does note that he is compliant with use of the abdominal binder. Patient has known history of lung cancer with metastasis as well as gastroparesis with gastric stimulator implanted. He continues on chemotherapy. He has no further consequence complaints at this time. Past Medical/Surgical History (1) Orthostatic hypotension (2) Confusion (3) Neutropenia (4) Chronic pain (5) Facial cellulitis (6) Intractable nausea and vomiting (7) Sepsis (8) Pneumonia (9) Post-operative complication (10) Respiratory failure, acute (11) Infection of intrathecal pump (12) Nausea and vomiting (13) Diabetes mellitus, type II (14) Diabetic polyneuropathy (15) Gastroparesis (16) Lung cancer (17) HTN (hypertension) (18) History of cholecystectomy (19) History of tonsillectomy and adenoidectomy (20) Hx of total knee arthroplasty (21) S/P lobectomy of lung (22) H/O esophagogastroduodenoscopy (23) H/O colonoscopy (24) Anemia (25) Chronic pain (26) Diabetes mellitus with hyperglycemia (27) Hypomagnesemia (28) Intractable vomiting Family History Cancer Diabetes mellitus Hypertension Family Hx Review: history personally reviewed by me Social / Work History Smoking Status: Former smoker Smokeless Tobacco Use: No Alcohol Use: none Drug Use: none Marital Status: Housing Status: lives with significant other Occupation: disabled Allergies Coded Allergies: BEE STING (Verified Allergy, Mild, SWELLING AT SITE, SOB, 02/01/17) Penicillins (Unverified Allergy, Unknown, "SINCE "-Amoxicillin, ) Medications Current Inpatient Medications Medications (Trade) Dose Ordered Sig/Cal Route Start Time Stop Time Status Last Admin Dose Admin Acetaminophen (Tylenol Tab) 650 mg Q4H PRN PO 02/02/17 03:45 03/04/17 03:44 02/02/17 19:28 650 MG Glucose (Glucose 40% Gel) 15-30 GRAMS 15 GRAMS... UD PRN PO 02/02/17 03:45 03/04/17 03:44 Glucose (Glucose Chew Tab) 4-8 Tablets 4 Tabl... UD PRN PO 02/02/17 03:45 03/04/17 03:44 Dextrose (Dextrose 50% 50ML Syringe) 25-50ML OF 50% DW IV FOR... UD PRN IV 02/02/17 03:45 03/04/17 03:44 Glucagon (Glucagon Inj) 1 mg UD PRN SQ 02/02/17 03:45 03/04/17 03:44 Clindamycin Phosphate 600 mg/ Dextrose 54 ml @ 100 mls/hr Q8H IV 02/02/17 04:00 02/09/17 03:59 02/04/17 11:16 100 MLS/HR Clindamycin Phosphate (Consult) 1 ea UD PRN N/A 02/02/17 04:45 03/04/17 04:44 Aspirin (Ecotrin Tab) 81 mg QAM PO 02/02/17 09:00 03/04/17 08:59 02/04/17 09:14 81 MG Folic Acid (Folvite Tab) 1 mg QAM PO 02/02/17 09:00 03/04/17 08:59 02/04/17 09:18 1 MG Gabapentin (Neurontin Tab) 600 mg TID PO 02/02/17 09:00 03/04/17 08:59 02/04/17 13:21 600 MG Levetiracetam (Keppra Tab) 750 mg BID PO 02/02/17 09:00 03/04/17 08:59 02/04/17 09:19 750 MG Metoprolol Tartrate (Lopressor Tab) 25 mg BID PO 02/02/17 09:00 03/04/17 08:59 02/04/17 09:17 25 MG Pantoprazole Sodium (Protonix Tab) 40 mg QAM PO 02/02/17 09:00 03/04/17 08:59 02/04/17 09:17 40 MG Venlafaxine HCl (effeXOR EXTENDED REL CAP) 37.5 mg QAM PO 02/02/17 09:00 03/04/17 08:59 02/04/17 09:21 37.5 MG Multivitamins/ Minerals (Multivitamin W/ Minerals Tab) 1 tab QAM PO 02/02/17 09:00 03/04/17 08:59 02/04/17 09:14 1 TAB Ipratropium [place] (Atrovent 0.02% 0.5MG/2.5ML Neb) 0.5 mg Q6R INH 02/02/17 09:00 03/04/17 08:59 02/04/17 07:26 0.5 MG Levalbuterol (Xopenex 1.25MG/ 0.5ML Neb) 1.25 mg Q6R INH 02/02/17 09:00 03/04/17 08:59 02/04/17 07:26 1.25 MG Ipratropium [place] (Atrovent 0.02% 0.5MG/2.5ML Neb) 0.5 mg Q4H PRN INH 02/02/17 04:00 03/04/17 03:59 Levalbuterol (Xopenex 1.25MG/ 0.5ML Neb) 1.25 mg Q4H PRN INH 02/02/17 04:00 03/04/17 03:59 Cefepime HCl (Consult) 1 ea UD PRN N/A 02/02/17 04:45 03/04/17 04:44 Vancomycin HCl (Consult) 1 ea UD PRN N/A 02/02/17 04:45 03/04/17 04:44 Cefepime HCl 2000 mg/Dextrose 112.5 ml @ 225 mls/hr Q8H IV 02/02/17 08:00 02/09/17 07:59 02/04/17 08:45 225 MLS/HR Senna/Docusate Sodium (Senokot S Tab) 1 tab QAM PO 02/02/17 09:00 03/04/17 08:59 02/04/17 09:15 1 TAB Hydromorphone HCl (Dilaudid Tab) 4 mg Q3HWA PRN PO 02/02/17 16:15 02/16/17 03:44 02/04/17 14:21 4 MG Heparin Sodium (Porcine) (Heparin 10 Unit/ ml 5 ml Flush) 5 ml PRN PRN FLUSH 02/03/17 00:30 03/05/17 00:29 02/04/17 12:12 5 ML Ondansetron HCl (Zofran Inj) 4 mg Q6H PRN IV 02/03/17 02:45 03/05/17 02:44 02/04/17 08:01 4 MG Promethazine HCl 12.5 mg/Sodium Chloride 50.5 ml @ 204 mls/hr Q6H PRN IV 02/03/17 02:45 03/05/17 02:44 02/03/17 22:03 204 MLS/HR Ioversol (Optiray 320) 100 ml UD PRN IV 02/03/17 05:00 02/07/17 04:59 Lorazepam (Ativan Inj) 0.25 mg Q6H PRN IV 02/03/17 06:00 03/05/17 05:59 02/03/17 23:03 0.25 MG Insulin Aspart (novoLOG ASPART) SLIDING SCALE If C... ACHS SC 02/03/17 11:00 03/04/17 10:59 02/04/17 12:25 5 UNITS Insulin Glargine (Lantus Solostar Pen) 12 units BID SC 02/03/17 21:00 03/04/17 08:59 02/04/17 09:26 12 UNITS Vancomycin HCl 1500 mg/Sodium Chloride 530 ml @ 200 mls/hr Q24H IV 02/04/17 04:00 03/02/17 23:59 02/04/17 03:37 200 MLS/HR Enteral Nutritional Formula (Boost Glucose Control) 1 can TIDM PO 02/03/17 16:45 03/05/17 16:44 02/04/17 11:43 1 CAN Amlodipine Besylate (Norvasc Tab) 10 mg DAILY PO 02/04/17 09:00 03/04/17 08:59 02/04/17 09:16 10 MG Lisinopril (Zestril Tab) 5 mg QAM PO 02/04/17 09:00 03/06/17 08:59 02/04/17 09:21 5 MG Review of Systems 10 point review of systems was otherwise negative aside from HPI Specifically the patient denies positional headache Physical Exam Height & Weight: Height 5 feet, 8.00 inches. Weight 99.000 (Kilograms) 218 (Pounds) Last Vital Signs Documentation Date Time Temp Pulse Resp B/P (MAP) Pulse Ox O2 Delivery O2 Flow Rate FiO2 02/04/17 12:00 Room Air 02/04/17 11:12 37.0 91 16 157/87 (110) 90 02/04/17 07:23 2.0 Exam: Gen.: Mr. Martins is standing in his bathroom brushing his teeth. He walks around his room without note of a headache. He appears comfortable on examination. Speech and thought process was appropriate. Mood and affect appropriate. Cognition intact. Neck: No evidence of meningismus appreciated. Full range of motion without limitation. Abdomen: Soft and nondistended. No organomegaly procedure. No rebound or guarding. Pump incisional site appears well healing without dehiscence drainage erythema or fluctuance. Previous Steri-Strips are now absent. No odor appreciated. Moderately tender to palpation. Back/spine: Thoracolumbar midline incision appears intact with sutures in place. I am not able to express any fluid from the wound. No odor appreciated. There is tenderness to deep palpation of his incision. Neurologic: Cranial nerves grossly intact. Ambulatory function normal. Laboratory Laboratory Review: results personally reviewed by me Laboratory Results (Last CBC): 02/03/17 04:53 Red Blood Count 3.01 L, Mean Corpuscular Volume 87.0, Mean Corpuscular Hemoglobin 28.6, Mean Corpuscular Hemoglobin Concent 32.8, Mean Platelet Volume 8.6, Neutrophils (%) (Auto) 61.5, Lymphocytes (%) (Auto) 21.0, Monocytes (%) ( Auto) 11.9, Eosinophils (%) (Auto) 4.8, Basophils (%) (Auto) 0.4, Neutrophils # (Auto) 2.85, Lymphocytes # (Auto) 0.97 L, Monocytes # (Auto) 0.55, Eosinophils # (Auto) 0.22, Basophils # (Auto) 0.[address] Findings Patient: NIKHIL MARTINS Address1: [address] [place] [address], [address] [facility] Rec: [id number] Address2: Acct ID: [id number] [facility] Zip: [place] [id number] Date: 1965 Sex: M Room/Bed: [facility] Ref Phy: Bran Burgess M.D. SC: MyaT Att Phy: Navya Barfield DO Report #: [id number] [place] Phy: Bran Burgess M.D. Test: APIV Admit Phy: Navya Barfield DO Inspector Filter Tip: BHARATHI Interpreting Phy: Oumar Metzger D.O. Diagnosis: RESPIRATORY FAILURE, ACUTE Ordering Phy: Darian Chinchilla M.D. Service Date: 02/03/17 Admit Date: 02/01/1709/30/17 MNE: [id number] CONF: DICTATED BY: Oumar Metzger D.O.]] CC: Bran Burgess M.D., Salman A., DO Oconer, Joseph N., M.D. Endcc: [~ rep ct add3]] ABD/PELVIS IV CONTRAST ONLY HISTORY: 51 years-old Male worsening abd pain acute generalized abdominal pain. Follow-up study to assess left paraspinal intramuscular abscess. COMPARISON: CT abdomen and pelvis 02/01/2017 TECHNIQUE: Multiple axial CT images of the abdomen and pelvis were obtained following the intravenous administration of 93 mL Optiray 320. A dose lowering technique was used consistent with the principals of CLARITZARA. FINDINGS: Small right and [id number] left pleural effusions are noted. Groundglass opacities of the lung bases are noted in addition to areas of intralobular septal thickening, right greater than left. No pneumoperitoneum. Inferior cardiac chambers are unremarkable. Prior cholecystectomy. The liver, spleen and adrenal glands are within normal limits. There is moderate to severe pancreatic atrophy. Kidneys, ureters are unremarkable. Urinary bladder is collapsed. Calcifications are seen within the central prostate. The abdominal aorta is normal in course and caliber. Mildly prominent inguinal lymph nodes are seen measuring up to 1 cm in short axis. No bulky retroperitoneal adenopathy. There is mild nonspecific wall thickening of the distal esophagus. No bowel obstruction or focal bowel wall thickening identified. No evidence to suggest acute appendicitis. There is moderate diffuse body wall edema. Implanted device of the right anterior abdomen is seen without associated fluid collection. Catheter courses from this device enters the spinal canal at L3-L4. Peripherally enhancing fluid collection within the subcutaneous tissues surrounding the leads are again seen on image 200 of series 3 measuring up to 1.5 x 2.7 x 4.2 cm in AP, transverse and craniocaudal dimension, unchanged. Distal leads from this device extend to T11-T12. No epidural fluid collections are seen on this study. Phlegmonous change abuts the paraspinal musculature. Left anterior abdominal wall implanted device has 2 leads that course to the gastric antrum. IMPRESSION: 1. Stable exam from comparison CT 02/01/2017 with redemonstration of persistent unchanged size of a left paraspinal peripherally enhancing fluid collection of the subcutaneous left paraspinal tissues abutting the adjacent left paraspinal musculature measuring up to 4.2 cm suggesting abscess. This surrounds the above-mentioned spinal catheter without definite intraspinal extension seen on this study. No epidural fluid collections identified. 2. Redemonstration of moderate diffuse body wall edema with small right and [id number] left pleural effusions. 3. Persistent groundglass bibasilar opacities of the lung bases with areas of intralobular septal thickening suspicious for pneumonitis. 4. Persistent mildly enlarged right inguinal lymph nodes, likely reactive. Past Records Previous Records: personally reviewed by me Opioid Risk Assessment Risk assessment performed, no issues identified Assessment 1. Discharge from lumbar catheter incision with concern for possible recurrent CSF leak 2. Chronic neuropathic pain requiring implantation of intrathecal pump and catheter system-implant 12/25/2016 3. History of metastatic lung cancer 4. History of gastroparesis on gastric stimulator 5. Diabetes mellitus 6. Recent Pneumonia Recommendations 1. Recommend continued utilization of oral hydromorphone to further diminish pain control. I did not make any changes to his intrathecal pump dosage at this time. 2. We will continue to monitor his drainage from his wound today. We'll speak with Dr. Erlin Gomez about possible exploration of wound with culture to ensure that this is not abscess formation. 3. Will consider bed rest to diminish leak however will make this determination after quantifying the amount of drainage over a 12 hour period. 4. Appreciate infectious disease, hospitalists, and orthopedic spine input in this patient. 5. Will continue to follow
--- NOTE | 2017-02-04 15:44 | Orthopedic Consultation ---
Orthopedic Consultation Date of Consultation: Feb 04, 2017. Attending Physician: Navya Barfield DO Reason for Consultation: Back pain rule out abscess History of Present Illness This is a 51-year-old male well-known to me presents with continued persistent drainage from his thoracolumbar incision at the site of his pain pump placement. He continues to emphasized that he is obtaining significant relief of his pain secondary to the pump. Past Medical/Surgical History Medical Problems: (1) Acute kidney injury Status: Acute (2) Altered mental status Status: Acute (3) Anemia Status: Acute (4) Chronic pain Status: Acute (5) Dehydration Status: Acute (6) Dehydration Status: Acute (7) Dehydration Status: Acute (8) Dehydration Status: Acute (9) Diabetes mellitus with hyperglycemia Status: Acute (10) Failure of outpatient treatment Status: Acute (11) Hypomagnesemia Status: Acute (12) Hypomagnesemia Status: Acute (13) Intractable vomiting Status: Acute (14) Intractable vomiting Status: Acute (15) Intrathecal pump infection Status: Acute (16) Orthostatic hypotension Status: Acute (17) Pneumonia Status: Acute (18) Post-operative complication Status: Acute (19) Sepsis Status: Acute (20) Vomiting Status: Acute (21) Vomiting Status: Acute Family History Cancer Diabetes mellitus Hypertension Social History Smoking Status: Former Smoker Smokeless Tobacco Use: No Alcohol Use: none Drug Use: none Marital Status: Housing Status: lives with family Occupation Status: disabled Allergies Coded Allergies: BEE STING (Verified Allergy, Mild, SWELLING AT SITE, SOB, 02/01/17) Penicillins (Unverified Allergy, Unknown, "SINCE "-Amoxicillin, ) Home Medications Scheduled Albuterol Hfa (Ventolin Hfa), 2-4 PUFFS INH Q6H Amlodipine (Norvasc), 5 MG PO DAILY Aspirin (Aspirin Ec), 81 MG PO QAM Folic Acid (Folvite), 1 TAB PO QAM Gabapentin (Gabapentin), 1 TAB PO TID Insulin Aspart (Novolog), 5 UNITS SC ACHS Insulin Glargine (Lantus), 20 UNITS SC QPM Insulin Glargine (Lantus), 20 UNITS SC QPM Levetiracetam (Keppra), 750 MG PO BID Magnesium Chloride (Slow-Mag Tab), 64 MG PO BID Metoprolol Tartrate (Lopressor) (Lopressor), 25 MG PO BID Multiple Vitamin (Multivitamins), 1 CAP PO QAM Pantoprazole (Protonix), 40 MG PO QAM Vancomycin HCl in Sodium Chlor (Vancomycin Hydrochloride/ 1.25-0.9 gm/250Ml-%), 1,250 MG IV DAILY Venlafaxine Hcl (Effexor Xr), 37.5 MG PO QAM Scheduled PRN Acetaminophen (Tylenol), 650 MG PO TID PRN for Pain Epinephrine (Epipen), 0.3 MG IM UD PRN for ALLERGIC REACTION Hydromorphone Hcl (Dilaudid), 8 MG PO Q8 PRN for Pain Metoclopramide Hcl (Reglan), 10 MG PO ACHS PRN for Nausea Ondansetron (Ondansetron HCl), 8 MG PO Q8 PRN for Nausea Promethazine Hcl (Phenergan Suppository), 25 MG NM Q4H PRN for Nausea or Vomiting Current Inpatient Medications Current Inpatient Medications Medications (Trade) Dose Ordered Sig/Cal Route Start Time Stop Time Status Last Admin Dose Admin Acetaminophen (Tylenol Tab) 650 mg Q4H PRN PO 02/02/17 03:45 03/04/17 03:44 02/02/17 19:28 650 MG Glucose (Glucose 40% Gel) 15-30 GRAMS 15 GRAMS... UD PRN PO 02/02/17 03:45 03/04/17 03:44 Glucose (Glucose Chew Tab) 4-8 Tablets 4 Tabl... UD PRN PO 02/02/17 03:45 03/04/17 03:44 Dextrose (Dextrose 50% 50ML Syringe) 25-50ML OF 50% DW IV FOR... UD PRN IV 02/02/17 03:45 03/04/17 03:44 Glucagon (Glucagon Inj) 1 mg UD PRN SQ 02/02/17 03:45 03/04/17 03:44 Clindamycin Phosphate 600 mg/ Dextrose 54 ml @ 100 mls/hr Q8H IV 02/02/17 04:00 02/09/17 03:59 02/04/17 11:16 100 MLS/HR Clindamycin Phosphate (Consult) 1 ea UD PRN N/A 02/02/17 04:45 03/04/17 04:44 Aspirin (Ecotrin Tab) 81 mg QAM PO 02/02/17 09:00 03/04/17 08:59 02/04/17 09:14 81 MG Folic Acid (Folvite Tab) 1 mg QAM PO 02/02/17 09:00 03/04/17 08:59 02/04/17 09:18 1 MG Gabapentin (Neurontin Tab) 600 mg TID PO 02/02/17 09:00 03/04/17 08:59 02/04/17 13:21 600 MG Levetiracetam (Keppra Tab) 750 mg BID PO 02/02/17 09:00 03/04/17 08:59 02/04/17 09:19 750 MG Metoprolol Tartrate (Lopressor Tab) 25 mg BID PO 02/02/17 09:00 03/04/17 08:59 02/04/17 09:17 25 MG Pantoprazole Sodium (Protonix Tab) 40 mg QAM PO 02/02/17 09:00 03/04/17 08:59 02/04/17 09:17 40 MG Venlafaxine HCl (effeXOR EXTENDED REL CAP) 37.5 mg QAM PO 02/02/17 09:00 03/04/17 08:59 02/04/17 09:21 37.5 MG Multivitamins/ Minerals (Multivitamin W/ Minerals Tab) 1 tab QAM PO 02/02/17 09:00 03/04/17 08:59 02/04/17 09:14 1 TAB Ipratropium [place] (Atrovent 0.02% 0.5MG/2.5ML Neb) 0.5 mg Q6R INH 02/02/17 09:00 03/04/17 08:59 02/04/17 07:26 0.5 MG Levalbuterol (Xopenex 1.25MG/ 0.5ML Neb) 1.25 mg Q6R INH 02/02/17 09:00 03/04/17 08:59 02/04/17 07:26 1.25 MG Ipratropium [place] (Atrovent 0.02% 0.5MG/2.5ML Neb) 0.5 mg Q4H PRN INH 02/02/17 04:00 03/04/17 03:59 Levalbuterol (Xopenex 1.25MG/ 0.5ML Neb) 1.25 mg Q4H PRN INH 02/02/17 04:00 03/04/17 03:59 Cefepime HCl (Consult) 1 ea UD PRN N/A 02/02/17 04:45 03/04/17 04:44 Vancomycin HCl (Consult) 1 ea UD PRN N/A 02/02/17 04:45 03/04/17 04:44 Cefepime HCl 2000 mg/Dextrose 112.5 ml @ 225 mls/hr Q8H IV 02/02/17 08:00 02/09/17 07:59 02/04/17 08:45 225 MLS/HR Senna/Docusate Sodium (Senokot S Tab) 1 tab QAM PO 02/02/17 09:00 03/04/17 08:59 02/04/17 09:15 1 TAB Hydromorphone HCl (Dilaudid Tab) 4 mg Q3HWA PRN PO 02/02/17 16:15 02/16/17 03:44 02/04/17 14:21 4 MG Heparin Sodium (Porcine) (Heparin 10 Unit/ ml 5 ml Flush) 5 ml PRN PRN FLUSH 02/03/17 00:30 03/05/17 00:29 02/04/17 12:12 5 ML Ondansetron HCl (Zofran Inj) 4 mg Q6H PRN IV 02/03/17 02:45 03/05/17 02:44 02/04/17 08:01 4 MG Promethazine HCl 12.5 mg/Sodium Chloride 50.5 ml @ 204 mls/hr Q6H PRN IV 02/03/17 02:45 03/05/17 02:44 02/03/17 22:03 204 MLS/HR Ioversol (Optiray 320) 100 ml UD PRN IV 02/03/17 05:00 02/07/17 04:59 Lorazepam (Ativan Inj) 0.25 mg Q6H PRN IV 02/03/17 06:00 03/05/17 05:59 02/03/17 23:03 0.25 MG Insulin Aspart (novoLOG ASPART) SLIDING SCALE If C... ACHS SC 02/03/17 11:00 03/04/17 10:59 02/04/17 12:25 5 UNITS Insulin Glargine (Lantus Solostar Pen) 12 units BID SC 02/03/17 21:00 03/04/17 08:59 02/04/17 09:26 12 UNITS Vancomycin HCl 1500 mg/Sodium Chloride 530 ml @ 200 mls/hr Q24H IV 02/04/17 04:00 03/02/17 23:59 02/04/17 03:37 200 MLS/HR Enteral Nutritional Formula (Boost Glucose Control) 1 can TIDM PO 02/03/17 16:45 03/05/17 16:44 02/04/17 11:43 1 CAN Amlodipine Besylate (Norvasc Tab) 10 mg DAILY PO 02/04/17 09:00 03/04/17 08:59 02/04/17 09:16 10 MG Lisinopril (Zestril Tab) 5 mg QAM PO 02/04/17 09:00 03/06/17 08:59 02/04/17 09:21 5 MG Physical Exam Date Time Temp Pulse Resp B/P (MAP) Pulse Ox O2 Delivery O2 Flow Rate FiO2 02/04/17 12:00 Room Air 02/04/17 11:12 37.0 91 16 157/87 (110) 90 02/04/17 08:00 Room Air 02/04/17 07:26 60 16 65 Room Air 02/04/17 07:23 37.3 90 13 171/100 (123) 99 Nasal Cannula 2.0 02/04/17 04:10 36.9 95 18 145/81 (102) 95 Oxymask 2.0 02/04/17 04:00 94 Nasal Cannula 2.0 02/04/17 01:50 100 16 94 Room Air 02/03/17 23:59 94 Room Air 02/03/17 23:27 36.6 101 18 168/92 (117) 94 Room Air 02/03/17 20:08 36.5 103 18 167/86 (113) 94 Room Air 02/03/17 20:00 94 Room Air 02/03/17 19:21 96 16 93 Room Air 02/03/17 16:00 Room Air On physical exam the suture is still in place. I was able to express modest amounts of clear fluid from the lower portion of the incision. There is however no erythema or gross purulence appreciated. Laboratory Results Last 24 Hours Test 02/03/17 16:09 02/03/17 20:07 02/04/17 06:55 02/04/17 07:05 Bedside Glucose 232 mg/dl 228 mg/dl 104 mg/dl Sodium Level 141 mmol/L Potassium Level 4.2 mmol/L Chloride Level 101 mmol/L Carbon Dioxide Level 33 mmol/L Anion Gap 7.0 mmol/L Blood Urea Nitrogen 17 mg/dl Creatinine 1.20 mg/dl Est Creatinine Clear Calc Drug Dose 83.1 ml/min Estimated GFR () 80.7 Estimated GFR (Non- 69.6 BUN/Creatinine Ratio 13.8 Random Glucose 109 mg/dl Calcium Level 8.3 mg/dl Phosphorus Level 5.0 mg/dl Magnesium Level 1.8 mg/dl Test 02/04/17 07:08 02/04/17 11:14 Bedside Glucose 177 mg/dl 146 mg/dl Assessment & Plan Assessment persistent drainage from the catheter site at the thoracolumbar junction. Plan at this point I discussed with the patient exploratory I&D of the area. Certainly cultures will be obtained. We discussed also implanting and a biotic beads in the tissue bed.. Patient understands and agrees. He will be made nothing by mouth after midnight for surgery tomorrow.
--- NOTE | 2017-02-04 16:05 | DIAGNOSTIC IMAGING REPORT ---
BILATERAL LOWER EXTREMITY VENOUS DOPPLER CLINICAL HISTORY: Acute respiratory failure. COMPARISON STUDY: Bilateral lower extremity venous Doppler January 22, 2017. TECHNIQUE: Sonography of the deep venous system of the bilateral lower extremities was performed. Compression and augmentation were evaluated. FINDINGS: The bilateral common femoral, superficial femoral and popliteal veins were compressible. Augmentation was normal. Flow was shown within the deep calf vessels. IMPRESSION: No evidence of deep venous thrombus within the bilateral lower extremities. Electronically signed by: Bryce Perez M.D. 02/04/2017 4:04 PM Dictated Date/Time: 02/04/2017 4:03 PM
[2017-02-04] MEDS: PROMETHAZINE HCL INJ 12.5 MG in SODIUM CHLORIDE 0.9% 50ML 50 ML IV PRN (23:40)
[2017-02-05] VITALS (17 sets, daily range): BP systolic 128–173; BP diastolic 73–97; PULSE 82–101; TEMP 36.4–37.2; O2SAT 83–99
[2017-02-05] MEDS: IPRATROPIUM BROMIDE NEB SOLN 0.02% 2.5 ML VIAL INH SCH ×4 (02:03→19:22)
[2017-02-05] MEDS: LEVALBUTEROL 1.25MG/0.5ML NEB INH SCH ×4 (02:04→19:22)
[2017-02-05] MEDS: ONDANSETRON INJ 2 MG/ML 2 ML VIAL IV PRN (02:05)
[2017-02-05] MEDS: VANCOMYCIN INJ 1,500 MG in SODIUM CHLORIDE 0.9% 500ML 500 ML IV SCH (03:53)
[2017-02-05] MEDS: CLINDAMYCIN IV 600 MG in DEXTROSE 5% 50ML 50 ML IV SCH ×3 (03:54→21:26)
[2017-02-05] MEDS: HYDROmorphone HCL 2 MG TAB PO PRN ×4 (03:57→21:27)
[2017-02-05] MEDS: LORAZEPAM 2 MG/ML 1 ML VIAL IV PRN ×2 (05:14→22:34)
[2017-02-05] MEDS ORDERED: FENTANYL CITRATE INJ 50 MCG/1 ML 2 ML VIAL ONE (07:13)
[2017-02-05] MEDS ORDERED: MIDAZOLAM HCL 1 MG/ML 2ML VIAL ONE (07:13)
[2017-02-05 07:22] LABS: BUN/CREATININE RATIO 16.6 (10-20); CREATININE 1.4 mg/dl (0.60-1.40); MAGNESIUM 1.7 mg/dl (1.8-2.4); POTASSIUM 4.4 mmol/L (3.5-5.1)
[2017-02-05] MEDS ORDERED: BACITRACIN 50000 UNIT VIAL ONE ×2 (07:29→08:27)
[2017-02-05] MEDS ORDERED: BUPIVACAINE/EPINEPHRINE 0.5% MPF 1:200,000 30 ML VIAL ONE (07:29)
[2017-02-05] MEDS: BOOST GLUCOSE CONTROL PO SCH ×3 (07:30→17:05)
[2017-02-05] MEDS: INSULIN ASPART 100 UNITS/ML 3 ML PEN SC SCH ×4 (07:30→21:31)
[2017-02-05] MEDS ORDERED: GENTAMICIN SULFATE 40 MG/ML 2 ML VIAL ONE (07:52)
[2017-02-05] MEDS ORDERED: VANCOMYCIN HCL 1000MG/20ML VIAL ONE (07:52)
[2017-02-05] MEDS ORDERED: HYDROmorphone INJ 2 MG/ML SYR/VIAL IV PRN (08:00)
[2017-02-05] MEDS ORDERED: EpHEDrine SULFATE INJ 50 MG/ML AMP IV PRN (08:00)
[2017-02-05] MEDS ORDERED: PHENYLEPHRINE 100MCG/ML 5ML SYR IV PRN (08:00)
[2017-02-05] MEDS ORDERED: FLUMAZENIL 0.1 MG/1 ML 10 ML VIAL IV PRN (08:00)
[2017-02-05] MEDS ORDERED: FENTANYL CITRATE INJ 50 MCG/1 ML 2 ML VIAL IV PRN (08:00)
[2017-02-05] MEDS ORDERED: LABETALOL HCL IV 5 MG/ML 20ML IV PRN (08:00)
[2017-02-05] MEDS ORDERED: ONDANSETRON INJ 2 MG/ML 2 ML VIAL IV PRN (08:00)
[2017-02-05] MEDS ORDERED: NALOXONE HCL 0.4 MG/1 ML VIAL/CARP IV PRN (08:00)
[2017-02-05] MEDS ORDERED: MEPERIDINE HCL 25 MG/ML CARP IV PRN (08:00)
[2017-02-05] MEDS ORDERED: ATROPINE SULFATE 0.1 MG/ML 5ML SYR IV PRN (08:00)
[2017-02-05] MEDS ORDERED: HYDROmorphone INJ 2 MG/ML SYR/VIAL ONE (08:32)
[2017-02-05] MEDS ORDERED: ONDANSETRON INJ 2 MG/ML 2 ML VIAL ONE (08:37)
[2017-02-05] MEDS ORDERED: PROPOFOL IV EMULSION 10 MG/ML 20 ML VIAL IV ONE (08:37)
[2017-02-05] MEDS ORDERED: METOCLOPRAMIDE HCL INJ 5 MG/ML 2 ML VIAL ONE (08:37)
[2017-02-05] MEDS ORDERED: DEXAMETHASONE SOD INJ 4 MG/ML VIAL ONE (08:37)
[2017-02-05] MEDS ORDERED: ROCURONIUM BROMIDE 10 MG/ML 5 ML VIAL IV ONE (08:37)
[2017-02-05] MEDS ORDERED: GLYCOPYRROLATE INJ 0.2 MG/ML VIAL ONE (08:37)
[2017-02-05] MEDS ORDERED: NEOSTIGMINE METHYLSULFATE 1 MG/ML 10ML VIAL ONE (08:37)
[2017-02-05] MEDS ORDERED: RANITIDINE HCL 25 MG/ML INJ ONE (08:37)
--- NOTE | 2017-02-05 08:50 | [facility] Operative Report ---
Operative Report Operative Date Feb 05, 2017. Pre-Operative Diagnosis persistent drainage and fluid collection from the catheter site at the thoracolumbar junction Post-Operative Diagnosis persistent drainage and fluid collection from the catheter site at the thoracolumbar junction Procedure(s) Performed Incision and Drainage of Lumbar Spine; Implantation Stimulin Beads Surgeon Dr. Elrin Gomez Correction Worker Surgeon(s) Dr. Anneliese Hernandez and Ally Vegas PA-C Estimated Blood Loss 5ml Findings Clear fluid with no gross evidence of purulence or infected tissue Specimens Microbiology : Deep lumbar Tissue STAT gram stain sent out of room at 0826 by Jose Stovall OR [facility] Description of Procedure Patient was met with preoperatively case discussed all questions are dressed. After informed consent was obtained patient was taken to the operative suite underwent intubation placed in a prone position the Stefan table on top Jeison frame. Lumbar spine was prepped and draped nostril fashion. Utilizing the previous incision site sharp dissection was performed through the dermis down to the fascial layer an area of fluid collection. Cultures were obtained. I did note the catheter anchor was dislodged. This was sewn back into place using Prolene. Incision was copiously irrigated with antibiotic solution. The area was then explored for continues evidence of CSF leak. None were noted. Valsalva maneuver was also performed again noting no evidence of a CSF leak. At this time Stimulan beads impregnated with the ankle and gent were inserted into the pocket. The incision was then closed with subcutaneous Vicryl and interrupted suture for final skin closure. Sterile dressings placed. Patient was awakened and taken to PACU stable condition. I attest to the content of the Intraoperative Record and any orders documented therein. Any exceptions are noted below.
[2017-02-05] MEDS: GABAPENTIN 600 MG TAB PO SCH ×3 (09:00→21:26)
--- NOTE | 2017-02-05 09:37 | Anesthesiology Progress Note ---
Anesthesia Post Op Note Date & Time Feb 05, 2017 at 09:37 Vital Signs Pain Intensity: 0 Vital Signs Past 12 Hours Date Time Temp Pulse Resp B/P (MAP) Pulse Ox O2 Delivery O2 Flow Rate FiO2 02/05/17 09:20 86 14 145/96 100 Oxymask 10 02/05/17 09:10 85 14 147/89 100 Oxymask 10 02/05/17 09:02 36.7 83 14 120/71 100 Oxymask 10 02/05/17 07:00 88 16 83 Nasal Cannula 2.0 02/05/17 04:00 91 Nasal Cannula 1.5 02/05/17 03:45 36.9 91 20 128/73 (91) 91 Nasal Cannula 1.5 Humidified Oxygen 02/05/17 02:04 89 16 94 Room Air 02/05/17 00:37 36.8 92 20 145/78 96 Room Air 02/04/17 23:59 96 Room Air 02/04/17 23:40 36.8 92 20 145/78 (100) 96 Room Air Notes Mental Status: alert / awake / arousable, participated in evaluation Pt Amnestic to Procedure: Yes Nausea / Vomiting: adequately controlled Pain: adequately controlled Airway Patency, RR, SpO2: stable & adequate BP & HR: stable & adequate Hydration State: stable & adequate Anesthetic Complications: no major complications apparent
[2017-02-05] MEDS: CEFEPIME IV 2000 MG in DEXTROSE 5% 100ML IV SCH ×3 (10:08→23:28)
[2017-02-05] MEDS: INSULIN GLARGINE SOLOSTAR 100 UNITS/ML 3 ML PEN SC SCH ×2 (10:10→21:32)
--- NOTE | 2017-02-05 10:32 | Pain Management Progress Note ---
Pain Management Progress Note Date of Service Feb 05, 2017. Subjective No acute events overnight. Was seen today in the OR. Objective Vital Signs: Last Vital Signs Documentation Date Time Temp Pulse Resp B/P (MAP) Pulse Ox O2 Delivery O2 Flow Rate FiO2 02/05/17 10:00 36.9 82 14 163/94 (117) 96 Nasal Cannula 4.0 Physical Exam: Gen.: Mr. Hamilton is resting comfortably in his bed in the preop area. Speech and thought process was appropriate. Mood and affect appropriate. Cognition intact. Neck: No evidence of meningismus appreciated. Full range of motion without limitation. Abdomen: Soft and nondistended. No organomegaly procedure. No rebound or guarding. Pump incisional site appears well healing without dehiscence drainage erythema or fluctuance. No odor appreciated. Moderately tender to palpation. Back/spine: Thoracolumbar midline incision appears intact with sutures in place. Clear fluid was noted on his dressing and minimal amount was expressed from the lumbar wound. No odor appreciated. There is tenderness to deep palpation of his incision. Neurologic: Cranial nerves grossly intact. Ambulatory function was not observed , but is able to MAEx4 w/o deficit. Laboratory Laboratory Review: results personally reviewed by me Laboratory Findings 02/03/17 04:53 Red Blood Count 3.01 L, Mean Corpuscular Volume 87.0, Mean Corpuscular Hemoglobin 28.6, Mean Corpuscular Hemoglobin Concent 32.8, Mean Platelet Volume 8.6, Neutrophils (%) (Auto) 61.5, Lymphocytes (%) (Auto) 21.0, Monocytes (%) ( Auto) 11.9, Eosinophils (%) (Auto) 4.8, Basophils (%) (Auto) 0.4, Neutrophils # (Auto) 2.85, Lymphocytes # (Auto) 0.97 L, Monocytes # (Auto) 0.55, Eosinophils # (Auto) 0.22, Basophils # (Auto) 0.02 Assessment 1. Discharge from lumbar catheter incision with concern for possible recurrent CSF leak-no leak noted on I+D today 2. Chronic neuropathic pain requiring implantation of intrathecal pump and catheter system-implant 12/25/2016 3. History of metastatic lung cancer 4. History of gastroparesis on gastric stimulator 5. Diabetes mellitus 6. Recent Pneumonia Recommendations 1. Recommend continued utilization of oral hydromorphone to further diminish pain control. I did not make any changes to his intrathecal pump dosage at this time. 2. We will continue to monitor his drainage from his wound, however after no leak was noted on I+D today, suspect the drainage was old CSF from prior leak. Stimulan abx were placed today prophylactically. Appreciate Dr. Erlin Gomez assistance and will continue to follow up on cultures taken today in the OR. 3. Bed rest for the next 3-5 days. May use beside commode for bowel movement, but urinal in bed for urine. Will speak with Dr. Vernon about DVT prophylaxis. 4. Appreciate infectious disease and hospitalists input in this patient. 5. Will consult dietary to make recommendations to optimize his nutrition for wound healing. 5. Will continue to follow
--- NOTE | 2017-02-05 11:51 | Progress Note ---
Internal Med Progress Note Date of Service: Feb 05, 2017. Provider Documentation: SUBJECTIVE: The patient was seen and Examined S/P Drainage of fluid collection from the back Remains drowsy but no complaints OBJECTIVE: Vital Signs-as noted below Exam: General-No distress at rest Very drowsy from I&D done this morning Eyes-normal ENT-normal Neck-Supple Lungs-decreased breath sound bilaterally Heart-Regular,no murmur appreciated Abdomen-Benign,no masses,bowel sound present Extremities-Trace edema bilaterally Neuro-AA Drowsy Generally weak and lethargic Lab data as noted below. 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 and severe diabetic gastroparesis s/p gastric pacemaker; chronic pain syndrome on long-term opioids s/p intrathecal pump, HTN, H/O of seizure disorder - recently admitted for infected and leaking intrathecal pump with surgical repair and on long-term antibiotics - presents secondary to worsening back pain and worsening nausea/vomiting Persistent Intrathecal Pump Leakage and Infection Left Paraspinal Abscess Was discharged on 01/31 - during that admission, he had an I&D and stopped CSF leakage He had a PICC line put in and was discharged on 6 weeks of Vancomycin Returned with more pain Abdominal/Pelvis CT suggests a persistent abscess around 4.2cm Patient is now on Cefepime, Clindamycin, and Vancomycin Appreciate ID input Appreciate Pain management and Spine Surgery input S/P I&D today ::No CSF leakage ,Old collection drained Bilateral Lower Extremity Swelling Possibly related to low protein Added boost TID-Nutrition consulted US negative for any clot HTN Has been on BB and Amlodipine and Lisinopril Still on the upper side Increase BB to 50mg BID Possible Aspiration Pneumonia Patient has had issues with nausea/vomiting He presented with some shortness of breath issues CXR suggests right perihilar and medial right lung base opacities suggesting atelectasis or pneumonia Added Clindamycin for anaerobic coverage Clinically better Anasarca Likely from low protein Received one dose of IV Lasix Add boost glucose control Persistent Nausea/Vomiting He has a gastric pacemaker in, unfortunately, he still has persistent n/v Received one dose of Emend Continue Zofran PRN Chronic Pain on Long-Term Opioids Would appreciate pain management input Currently on PO hydromorphone 4mg q3hrs PRN Will try to avoid IV narcotics Insulin Dependent DM2 Currently on Lantus 12 units BID Insulin sliding scale Monitor blood sugars - he presented with hypoglycemia; now slightly hyperglycemic, we will monitor Hx. of Seizure Disorder continue Keppra DVT ppx Will start Lovenox 40 mg Daily starting at 6 PM this Evening FULL CODE Vital Signs: Date Time Temp Pulse Resp B/P (MAP) Pulse Ox O2 Delivery O2 Flow Rate FiO2 02/05/17 11:21 36.5 82 20 161/95 (117) 97 Nasal Cannula 4.0 02/05/17 11:05 36.6 12 157/90 (112) 99 02/05/17 10:34 36.4 82 12 153/93 (113) 93 02/05/17 10:00 36.9 82 14 163/94 (117) 96 Nasal Cannula 4.0 02/05/17 10:00 Nasal Cannula 4.0 02/05/17 09:40 36.9 84 16 149/92 100 Nasal Cannula 4 02/05/17 09:30 36.9 86 16 146/89 100 Nasal Cannula 4 02/05/17 09:20 86 14 145/96 100 Oxymask 10 02/05/17 09:10 85 14 147/89 100 Oxymask 10 02/05/17 09:02 36.7 83 14 120/71 100 Oxymask 10 02/05/17 07:00 88 16 83 Nasal Cannula 2.0 02/05/17 04:00 91 Nasal Cannula 1.5 02/05/17 03:45 36.9 91 20 128/73 (91) 91 Nasal Cannula 1.5 Humidified Oxygen 02/05/17 02:04 89 16 94 Room Air 02/05/17 00:37 36.8 92 20 145/78 96 Room Air 02/04/17 23:59 96 Room Air 02/04/17 23:40 36.8 92 20 145/78 (100) 96 Room Air 02/04/17 20:00 95 Room Air 02/04/17 19:39 36.7 94 22 154/85 (108) 95 Room Air 02/04/17 19:30 94 16 94 Room Air 02/04/17 16:48 Room Air 02/04/17 15:41 36.7 91 22 142/80 (100) 95 Room Air 02/04/17 12:00 Room Air Lab Results: Results Past 24 Hours Test 02/04/17 16:03 02/04/17 20:09 02/05/17 06:11 02/05/17 06:56 Range/Units Bedside Glucose 162 235 156 70-99 mg/dl Sodium Level 140 136-145 mmol/L Potassium Level 4.4 3.5-5.1 mmol/L Chloride Level 102 98-107 mmol/L Carbon Dioxide Level 31 21-32 mmol/L Anion Gap 7.0 3-11 mmol/L Blood Urea Nitrogen 23 7-18 mg/dl Creatinine 1.40 0.60-1.40 mg/dl Est Creatinine Clear Calc Drug Dose 71.7 ml/min Estimated GFR () 66.9 Estimated GFR (Non- 57.8 BUN/Creatinine Ratio 16.6 1020 Random Glucose 163 70-99 mg/dl Calcium Level 8.0 8.5-10.1 mg/dl Magnesium Level 1.7 1.8-2.4 mg/dl Test 02/05/17 07:44 02/05/17 09:07 02/05/17 11:14 Range/Units Bedside Glucose 148 165 195 70-99 mg/dl Microbiology Results 02/05/17 Gram Stain - Final, Resulted 02/05/17 Bacterial Culture, Resulted Pending
[2017-02-05] MEDS: ASPIRIN 81 MG ECTAB PO SCH (14:43)
[2017-02-05] MEDS: VENLAFAXINE HCL XR 37.5 MG CAPXR PO SCH (14:44)
[2017-02-05] MEDS: LEVETIRACETAM 250 MG TAB PO SCH ×2 (14:45→21:26)
[2017-02-05] MEDS: CEROVITE ADV FORMULA TAB PO SCH (14:46)
[2017-02-05] MEDS: AMLODIPINE BESYLATE 5 MG TAB PO SCH (14:46)
[2017-02-05] MEDS: PANTOprazole SOD 40 MG TAB PO SCH (14:47)
[2017-02-05] MEDS: LISINOPRIL 5 MG TAB PO SCH (14:48)
[2017-02-05] MEDS: DOCUSATE SODIUM/SENNA 50/8.6MG TAB PO SCH (14:48)
--- NOTE | 2017-02-05 14:54 | Progress Note ---
Subjective Date of Service: Feb 05, 2017. Subjective remains on emperic abx. s/p I&D in OR today, tolerated well. cultures pending. blood cultures remain negative. afebrile. No overnight events. Problem List Medical Problems: (1) Acute kidney injury Status: Acute (2) Altered mental status Status: Acute (3) Anemia Status: Acute (4) Chronic pain Status: Acute (5) Dehydration Status: Acute (6) Dehydration Status: Acute (7) Dehydration Status: Acute (8) Dehydration Status: Acute (9) Diabetes mellitus with hyperglycemia Status: Acute (10) Failure of outpatient treatment Status: Acute (11) Hypomagnesemia Status: Acute (12) Hypomagnesemia Status: Acute (13) Intractable vomiting Status: Acute (14) Intractable vomiting Status: Acute (15) Intrathecal pump infection Status: Acute (16) Orthostatic hypotension Status: Acute (17) Pneumonia Status: Acute (18) Post-operative complication Status: Acute (19) Sepsis Status: Acute (20) Vomiting Status: Acute (21) Vomiting Status: Acute Objective Vital Signs Date Time Temp Pulse Resp B/P (MAP) Pulse Ox O2 Delivery O2 Flow Rate FiO2 02/05/17 14:19 89 16 93 Nasal Cannula 4.0 02/05/17 12:00 37.1 88 18 171/97 (121) 91 Nasal Cannula 02/05/17 12:00 Nasal Cannula 4.0 02/05/17 11:59 36.5 86 18 147/84 (105) 96 Nasal Cannula 4.0 02/05/17 11:21 36.5 82 20 161/95 (117) 97 Nasal Cannula 4.0 02/05/17 11:05 36.6 12 157/90 (112) 99 02/05/17 10:34 36.4 82 12 153/93 (113) 93 02/05/17 10:00 36.9 82 14 163/94 (117) 96 Nasal Cannula 4.0 02/05/17 10:00 Nasal Cannula 4.0 02/05/17 09:40 36.9 84 16 149/92 100 Nasal Cannula 4 02/05/17 09:30 36.9 86 16 146/89 100 Nasal Cannula 4 02/05/17 09:20 86 14 145/96 100 Oxymask 10 02/05/17 09:10 85 14 147/89 100 Oxymask 10 02/05/17 09:02 36.7 83 14 120/71 100 Oxymask 10 02/05/17 07:00 88 16 83 Nasal Cannula 2.0 02/05/17 04:00 91 Nasal Cannula 1.5 02/05/17 03:45 36.9 91 20 128/73 (91) 91 Nasal Cannula 1.5 Humidified Oxygen 02/05/17 02:04 89 16 94 Room Air 02/05/17 00:37 36.8 92 20 145/78 96 Room Air 02/04/17 23:59 96 Room Air 02/04/17 23:40 36.8 92 20 145/78 (100) 96 Room Air 02/04/17 20:00 95 Room Air 02/04/17 19:39 36.7 94 22 154/85 (108) 95 Room Air 02/04/17 19:30 94 16 94 Room Air 02/04/17 16:48 Room Air 02/04/17 15:41 36.7 91 22 142/80 (100) 95 Room Air Laboratory Results Item Value Date Time Blood Culture - Preliminary Resulted 02/01/17 2150 Blood NO GROWTH TO DATE. Blood Culture - Preliminary Resulted 02/01/17 2221 Blood NO GROWTH TO DATE. Gram Stain - Final Resulted 02/03/17 1035 Incision Site Back Gram Stain - Final Resulted 02/05/17 0826 Drainage-Deep Lumbar Gram Stain - Final Resulted 02/03/17 1035 Incision Site Back Last 24 Hours Test 02/04/17 16:03 02/04/17 20:09 02/05/17 06:11 02/05/17 06:56 Bedside Glucose 162 mg/dl 235 mg/dl 156 mg/dl Sodium Level 140 mmol/L Potassium Level 4.4 mmol/L Chloride Level 102 mmol/L Carbon Dioxide Level 31 mmol/L Anion Gap 7.0 mmol/L Blood Urea Nitrogen 23 mg/dl Creatinine 1.40 mg/dl Est Creatinine Clear Calc Drug Dose 71.7 ml/min Estimated GFR () 66.9 Estimated GFR (Non- 57.8 BUN/Creatinine Ratio 16.6 Random Glucose 163 mg/dl Calcium Level 8.0 mg/dl Magnesium Level 1.7 mg/dl Test 02/05/17 07:44 02/05/17 09:07 02/05/17 11:14 Bedside Glucose 148 mg/dl 165 mg/dl 195 mg/dl Assessment and Plan (1) Infection of intrathecal pump Assessment & Plan: continue abx, follow cultures. may need removal.
[2017-02-05] MEDS: ENOXAPARIN 40 MG/0.4 ML SYR SQ SCH (17:05)
[2017-02-05] MEDS: METOPROLOL TARTRATE 25 MG TAB PO SCH (21:26)
[2017-02-05] MEDS: PROMETHAZINE HCL INJ 12.5 MG in SODIUM CHLORIDE 0.9% 50ML 50 ML IV PRN (23:29)
[2017-02-06] VITALS (11 sets, daily range): BP systolic 149–195; BP diastolic 84–106; PULSE 84–99; TEMP 36.6–38; O2SAT 90–97
[2017-02-06] MEDS: HYDROmorphone HCL 2 MG TAB PO PRN ×5 (00:27→15:56)
[2017-02-06] MEDS: IPRATROPIUM BROMIDE NEB SOLN 0.02% 2.5 ML VIAL INH SCH ×4 (01:45→19:14)
[2017-02-06] MEDS: LEVALBUTEROL 1.25MG/0.5ML NEB INH SCH ×4 (01:45→19:14)
[2017-02-06] MEDS ORDERED: VANCOMYCIN TROUGH SCH (03:30)
[2017-02-06] MEDS: CLINDAMYCIN IV 600 MG in DEXTROSE 5% 50ML 50 ML IV SCH ×3 (03:38→20:42)
[2017-02-06 03:46] LABS: BASO % 0.4 %; BASO ABS # 0.02 K/uL (0-0.2); EOS % 5.5 %; HEMATOCRIT 26.3 % (42-52); IG% 0.2 %; LYMPH % 22.3 %; LYMPH ABS # 1.01 K/uL (1.2-3.4); MEAN CELL VOLUME 89.5 fL (80-100); MEAN CORPUSCULAR HEMOGLOBIN 27.2 pg (25-34); MEAN CORPUSCULAR HGB CONC 30.4 g/dl (32-36); MEAN PLATELET VOLUME 9.3 fL (7.4-10.4); MONO % 11.3 %; NEUT % 60.3 %; PLATELET COUNT 205 K/uL (130-400); RED BLOOD COUNT 2.94 M/uL (4.7-6.1); WHITE BLOOD COUNT 4.52 K/uL (4.8-10.8)
[2017-02-06 05:17] LABS: COMPLETE YES
--- NOTE | 2017-02-06 07:38 | Anesthesiology Progress Note ---
Anesthesia Post Op Note Date & Time Feb 06, 2017 at 07:37 Vital Signs Pain Intensity: 7.0 Vital Signs Past 12 Hours Date Time Temp Pulse Resp B/P (MAP) Pulse Ox O2 Delivery O2 Flow Rate FiO2 02/06/17 06:58 89 16 97 Nasal Cannula 2.0 02/06/17 04:00 91 Nasal Cannula 2.0 02/06/17 03:09 36.9 88 19 162/92 (115) 97 Nasal Cannula 2.0 02/06/17 01:45 91 16 96 Nasal Cannula 2.0 02/05/17 23:59 91 Nasal Cannula 2.0 02/05/17 23:12 36.8 97 19 173/96 (121) 91 Nasal Cannula 2.0 02/05/17 20:00 Nasal Cannula 4.0 02/05/17 19:48 37.2 96 22 162/86 (111) 96 Nasal Cannula 4.0 Notes Mental Status: alert / awake / arousable, participated in evaluation Pt Amnestic to Procedure: Yes Nausea / Vomiting: adequately controlled Pain: adequately controlled, improving with treatment Airway Patency, RR, SpO2: stable & adequate BP & HR: stable & adequate Hydration State: stable & adequate Anesthetic Complications: no major complications apparent
[2017-02-06] MEDS: METOPROLOL TARTRATE 25 MG TAB PO SCH ×2 (07:39→20:42)
[2017-02-06] MEDS: GABAPENTIN 600 MG TAB PO SCH ×3 (07:39→20:42)
[2017-02-06] MEDS: CEFEPIME IV 2000 MG in DEXTROSE 5% 100ML IV SCH ×3 (07:39→23:58)
[2017-02-06] MEDS: LISINOPRIL 5 MG TAB PO SCH (07:39)
[2017-02-06] MEDS: LEVETIRACETAM 250 MG TAB PO SCH ×2 (07:39→20:43)
[2017-02-06] MEDS: PANTOprazole SOD 40 MG TAB PO SCH (07:40)
[2017-02-06] MEDS: VENLAFAXINE HCL XR 37.5 MG CAPXR PO SCH (07:40)
[2017-02-06] MEDS: ASPIRIN 81 MG ECTAB PO SCH (07:40)
[2017-02-06] MEDS: CEROVITE ADV FORMULA TAB PO SCH (07:40)
[2017-02-06] MEDS: DOCUSATE SODIUM/SENNA 50/8.6MG TAB PO SCH (07:40)
[2017-02-06] MEDS: AMLODIPINE BESYLATE 5 MG TAB PO SCH (07:40)
[2017-02-06] MEDS: INSULIN ASPART 100 UNITS/ML 3 ML PEN SC SCH ×4 (07:44→20:42)
[2017-02-06] MEDS: BOOST GLUCOSE CONTROL PO SCH ×3 (07:45→16:45)
[2017-02-06] MEDS: INSULIN GLARGINE SOLOSTAR 100 UNITS/ML 3 ML PEN SC SCH ×2 (07:45→20:47)
[2017-02-06] MEDS ORDERED: HYDROmorphone INJ 0.5 MG/0.5 ML SYR IV STA (08:49)
--- NOTE | 2017-02-06 09:45 | Pain Management Progress Note ---
Pain Management Progress Note Date of Service Feb 06, 2017. Subjective Patient complains of incisional pain in the thoracolumbar region as well as neuropathic pain in his bilateral feet. He took Dilaudid 4mg PO 1 hr ago and shortly after, he vomited his breakfast and the pill. He has been wearing the abdominal binder. He is unsure if the incision is draining. He is remaining bedbound. Case discussed with Dr. Hope Objective Vital Signs: Last Vital Signs Documentation Date Time Temp Pulse Resp B/P (MAP) Pulse Ox O2 Delivery O2 Flow Rate FiO2 02/06/17 08:00 Nasal Cannula 2.0 02/06/17 07:25 36.6 99 20 195/106 (135) 96 Physical Exam: Gen.: Mr. Hamilton is laying in the hospital bed, groaning and weeping with positional changes. Speech and thought process was appropriate. Mood and affect appropriate. Abdomen: Soft and nondistended. Pump is located in the right lower quadrant and incision appears to be well healed without any erythema, drainage, or skin breakdown. Back/spine: Thoracolumbar midline incision appears intact with sutures in place. Mild edema along the left side of the incision. Mild blood and yellow tinge to the thoracolumbar incision. There is no expressible drainage from the incision. No odor appreciated. There is tenderness to deep palpation of the incision. Neurologic: Cranial nerves grossly intact. AAO x 3. Laboratory Laboratory Findings 02/06/17 03:29 Red Blood Count 2.94 L, Mean Corpuscular Volume 89.5, Mean Corpuscular Hemoglobin 27.2, Mean Corpuscular Hemoglobin Concent 30.4 L, Mean Platelet Volume 9.3, Neutrophils (%) (Auto) 60.3, Lymphocytes (%) (Auto) 22.3, Monocytes (%) (Auto) 11.3, Eosinophils (%) (Auto) 5.5, Basophils (%) (Auto) 0.4, Neutrophils # (Auto) 2.72, Lymphocytes # (Auto) 1.01 L, Monocytes # (Auto) 0.51 , Eosinophils # (Auto) 0.25, Basophils # (Auto) 0.02 Assessment 1. Discharge from lumbar catheter incision with I&D performed yesterday 2. Chronic neuropathic pain requiring implantation of intrathecal pump and catheter system-implant 12/25/2016 3. History of metastatic lung cancer 4. History of gastroparesis on gastric stimulator 5. Diabetes mellitus 6. Recent Pneumonia Recommendations 1. Thoracolumbar incision appears well. There is no expressible drainage today. There is mild yellow/blood drainage on the dressing. 2. I have reenforced to the patient that he is on bedrest to allow for proper healing. 3. Recommend continued utilization of oral hydromorphone to further diminish pain control. No changes to his intrathecal pump dosage was made today. 4. Patient did vomit the Dilaudid tablet shortly after taking it and reports significant pain, he was ordered Dilaudid IV 0.5mg now for pain relief. 5. Will continue to follow.
[2017-02-06] MEDS ORDERED: VANCOMYCIN INJ 1,750 MG in SODIUM CHLORIDE 0.9% 500ML 500 ML IV ONE (11:45)
--- NOTE | 2017-02-06 11:46 | Pharmacy Progress Note ---
Pharmacy Antibiotic Prog Note Date of Service Feb 06, 2017. Subjective The patient is currently receiving 1500 mg IV every 24 hours. The patient is currently on day # 6 of IV therapy. Objective Height (Feet): 5 Height (Inches): 8.00 Weight (Kilograms): 100.500 Levels: Item Value Date Time Vancomycin Level Trough 18.3 mcg/ml 02/06/17 0329 Lab Results (24hrs): Test 02/05/17 20:04 02/06/17 03:29 02/06/17 06:11 Bedside Glucose 239 mg/dl (70-99) 250 mg/dl (70-99) White Blood Count 4.52 K/uL (4.8-10.8) Red Blood Count 2.94 M/uL (4.7-6.1) Hemoglobin 8.0 g/dL (14.0-18.0) Hematocrit 26.3 % (42-52) Mean Corpuscular Volume 89.5 fL (80-100) Mean Corpuscular Hemoglobin 27.2 pg (25-34) Mean Corpuscular Hemoglobin Concent 30.4 g/dl (32-36) Platelet Count 205 K/uL (130-400) Mean Platelet Volume 9.3 fL (7.4-10.4) Neutrophils (%) (Auto) 60.3 % Lymphocytes (%) (Auto) 22.3 % Monocytes (%) (Auto) 11.3 % Eosinophils (%) (Auto) 5.5 % Basophils (%) (Auto) 0.4 % Neutrophils # (Auto) 2.72 K/uL (1.4-6.5) Lymphocytes # (Auto) 1.01 K/uL (1.2-3.4) Monocytes # (Auto) 0.51 K/uL (0.11-0.59) Eosinophils # (Auto) 0.25 K/uL (0-0.5) Basophils # (Auto) 0.02 K/uL (0-0.2) RDW Standard Deviation 46.2 fL (36.4-46.3) RDW Coefficient of Variation 14.2 % (11.5-14.5) Immature Granulocyte % (Auto) 0.2 % Immature Granulocyte # (Auto) 0.01 K/uL (0.00-0.02) Basophilic Stippling 1+ Vancomycin Level Trough 18.3 mcg/ml (SEE COMMENT) Assessment & Plan Dose was put on hold this morning until level could come back (therapeutic). Due to 6 hour gap will give a one time 1750mg now and resume 1500mg q24 tomorrow AM. Pharmacy will continue to follow and will adjust dose/frequency as necessary. Thank you
--- NOTE | 2017-02-06 14:48 | Progress Note ---
Internal Med Progress Note Date of Service: Feb 06, 2017. Provider Documentation: SUBJECTIVE: The patient was seen and Examined S/P Drainage of fluid collection from the back Remains drowsy but no complaints Complains of more pain at the back OBJECTIVE: Vital Signs-as noted below Exam: General-No distress at rest Very drowsy from I&D done this morning Eyes-normal ENT-normal Neck-Supple Lungs-decreased breath sound bilaterally Heart-Regular,no murmur appreciated Abdomen-Benign,no masses,bowel sound present Extremities-Trace edema bilaterally Neuro-AA Drowsy Generally weak and lethargic Lab data as noted below. 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 and severe diabetic gastroparesis s/p gastric pacemaker; chronic pain syndrome on long-term opioids s/p intrathecal pump, HTN, H/O of seizure disorder - recently admitted for infected and leaking intrathecal pump with surgical repair and on long-term antibiotics - presents secondary to worsening back pain and worsening nausea/vomiting Persistent Intrathecal Pump Leakage and Infection Left Paraspinal Abscess Was discharged on 01/31 - during that admission, he had an I&D and stopped CSF leakage He had a PICC line put in and was discharged on 6 weeks of Vancomycin Abdominal/Pelvis CT suggests a persistent abscess around 4.2cm Patient is now on Cefepime, Clindamycin, and Vancomycin Appreciate ID input Appreciate Pain management and Spine Surgery input S/P I&D 02/05/17::No CSF leakage ,Old collection drained Continue current medications Bilateral Lower Extremity Swelling Possibly related to low protein Added boost TID-Nutrition consulted US negative for any clot HTN Has been on BB and Amlodipine and Lisinopril Still on the upper side Increase BB to 50mg BID Possible Aspiration Pneumonia Patient has had issues with nausea/vomiting He presented with some shortness of breath issues CXR suggests right perihilar and medial right lung base opacities suggesting atelectasis or pneumonia Added Clindamycin for anaerobic coverage Clinically better Anasarca Likely from low protein Received one dose of IV Lasix Add boost glucose control Persistent Nausea/Vomiting He has a gastric pacemaker in, unfortunately, he still has persistent n/v Received one dose of Emend Continue Zofran PRN Chronic Pain on Long-Term Opioids Would appreciate pain management input Currently on PO hydromorphone 4mg q3hrs PRN Will try to avoid IV narcotics Asking for more pain medicine -appreciate Pain therapist input Insulin Dependent DM2 Currently on Lantus 12 units BID Insulin sliding scale Monitor blood sugars - he presented with hypoglycemia; now slightly hyperglycemic, we will monitor Hx. of Seizure Disorder continue Keppra DVT ppx Will start Lovenox 40 mg Daily starting at 6 PM this Evening FULL CODE Vital Signs: Date Time Temp Pulse Resp B/P (MAP) Pulse Ox O2 Delivery O2 Flow Rate FiO2 02/06/17 14:09 84 16 94 Nasal Cannula 4.0 02/06/17 12:00 Nasal Cannula 2.0 02/06/17 11:45 36.7 90 20 159/88 (111) 95 Nasal Cannula 2.0 02/06/17 08:00 Nasal Cannula 2.0 02/06/17 07:25 36.6 99 20 195/106 (135) 96 Nasal Cannula 2.0 02/06/17 06:58 89 16 97 Nasal Cannula 2.0 02/06/17 04:00 91 Nasal Cannula 2.0 02/06/17 03:09 36.9 88 19 162/92 (115) 97 Nasal Cannula 2.0 02/06/17 01:45 91 16 96 Nasal Cannula 2.0 02/05/17 23:59 91 Nasal Cannula 2.0 02/05/17 23:12 36.8 97 19 173/96 (121) 91 Nasal Cannula 2.0 02/05/17 20:00 Nasal Cannula 4.0 02/05/17 19:48 37.2 96 22 162/86 (111) 96 Nasal Cannula 4.0 02/05/17 19:22 101 16 96 Nasal Cannula 4.0 02/05/17 16:31 Nasal Cannula 4.0 02/05/17 16:00 Nasal Cannula 4.0 02/05/17 15:56 37.1 87 18 157/86 (109) 97 Nasal Cannula 2.0 Lab Results: Results Past 24 Hours Test 02/05/17 16:24 02/05/17 20:04 02/06/17 03:29 02/06/17 06:11 Range/Units Bedside Glucose 234 239 250 70-99 mg/dl White Blood Count 4.52 4.8-10.8 K/uL Red Blood Count 2.94 4.7-6.1 M/uL Hemoglobin 8.0 14.0-18.0 g/dL Hematocrit 26.3 42-52 % Mean Corpuscular Volume 89.5 80-100 fL Mean Corpuscular Hemoglobin 27.2 25-34 pg Mean Corpuscular Hemoglobin Concent 30.4 32-36 g/dl Platelet Count 205 130-400 K/uL Mean Platelet Volume 9.3 7.4-10.4 fL Neutrophils (%) (Auto) 60.3 % Lymphocytes (%) (Auto) 22.3 % Monocytes (%) (Auto) 11.3 % Eosinophils (%) (Auto) 5.5 % Basophils (%) (Auto) 0.4 % Neutrophils # (Auto) 2.72 1.4-6.5 K/uL Lymphocytes # (Auto) 1.01 1.2-3.4 K/uL Monocytes # (Auto) 0.51 0.11-0.59 K/uL Eosinophils # (Auto) 0.25 0-0.5 K/uL Basophils # (Auto) 0.02 0-0.2 K/uL RDW Standard Deviation 46.2 36.4-46.3 fL RDW Coefficient of Variation 14.2 11.5-14.5 % Immature Granulocyte % (Auto) 0.2 % Immature Granulocyte # (Auto) 0.01 0.00-0.02 K/uL Basophilic Stippling 1+ Vancomycin Level Trough 18.3 SEE COMMENT mcg/ml Test 02/06/17 11:42 Range/Units Bedside Glucose 99 70-99 mg/dl
[2017-02-06] MEDS: PROMETHAZINE HCL INJ 12.5 MG in SODIUM CHLORIDE 0.9% 50ML 50 ML IV PRN (16:44)
[2017-02-06] MEDS: ENOXAPARIN 40 MG/0.4 ML SYR SQ SCH (17:48)
[2017-02-07] VITALS (56 sets, daily range): BP systolic 112–217; BP diastolic 67–117; PULSE 77–108; TEMP 37.1–38.1; O2SAT 74–100
[2017-02-07] MEDS: LEVALBUTEROL 1.25MG/0.5ML NEB INH SCH ×4 (02:13→20:16)
[2017-02-07] MEDS: IPRATROPIUM BROMIDE NEB SOLN 0.02% 2.5 ML VIAL INH SCH ×4 (02:13→20:16)
[2017-02-07] MEDS: PROMETHAZINE HCL INJ 12.5 MG in SODIUM CHLORIDE 0.9% 50ML 50 ML IV PRN (02:35)
[2017-02-07] MEDS: ACETAMINOPHEN IV 650 MG in EMPTY BAG 0 ML IV PRN (02:50)
[2017-02-07] MEDS: CLINDAMYCIN IV 600 MG in DEXTROSE 5% 50ML 50 ML IV SCH ×3 (03:38→21:24)
[2017-02-07] MEDS: INSULIN ASPART 100 UNITS/ML 3 ML PEN SC SCH ×3 (07:00→21:00)
[2017-02-07] MEDS: CEFEPIME IV 2000 MG in DEXTROSE 5% 100ML IV SCH ×2 (07:40→16:01)
[2017-02-07] MEDS: LEVETIRACETAM 250 MG TAB PO SCH ×2 (07:42→21:18)
[2017-02-07] MEDS: LISINOPRIL 5 MG TAB PO SCH (07:42)
[2017-02-07] MEDS: VENLAFAXINE HCL XR 37.5 MG CAPXR PO SCH (07:43)
[2017-02-07] MEDS: AMLODIPINE BESYLATE 5 MG TAB PO SCH (07:43)
[2017-02-07] MEDS: ASPIRIN 81 MG ECTAB PO SCH (07:43)
[2017-02-07] MEDS: PANTOprazole SOD 40 MG TAB PO SCH (07:44)
[2017-02-07] MEDS: CEROVITE ADV FORMULA TAB PO SCH (07:44)
[2017-02-07] MEDS: DOCUSATE SODIUM/SENNA 50/8.6MG TAB PO SCH (07:44)
[2017-02-07] MEDS: METOPROLOL TARTRATE 25 MG TAB PO SCH ×2 (07:45→21:18)
[2017-02-07] MEDS: BOOST GLUCOSE CONTROL PO SCH ×3 (07:52→15:57)
[2017-02-07] MEDS ORDERED: NALOXONE HCL 0.4 MG/1 ML VIAL/CARP ONE (08:39)
[2017-02-07] MEDS ORDERED: PHARMACY GLYCEMIC MGMT CONSULT PRN (08:45)
[2017-02-07] MEDS ORDERED: FUROSEMIDE 10 MG/ML 10 ML VIAL ONE (08:49)
[2017-02-07] MEDS: GABAPENTIN 600 MG TAB PO SCH ×3 (09:00→21:17)
[2017-02-07] MEDS ORDERED: FUROSEMIDE INJ 60 MG in SYRINGE 0 ML IV ONE (09:15)
--- NOTE | 2017-02-07 09:22 | DIAGNOSTIC IMAGING REPORT ---
SINGLE VIEW CHEST CLINICAL HISTORY: Dyspnea. CHF. FINDINGS: An AP, portable, upright chest radiograph is compared to study dated 02/04/2017 and correlated with chest CT dated 01/20/2017. The examination is degraded by portable technique, motion artifact, and apical lordotic positioning. A right PICC line is unchanged in position. The heart appears mildly enlarged. There is pulmonary vascular congestion with interstitial edema. Airspace opacities are slightly asymmetric on the right as compared to the left. Small layering pleural effusions are identified. No pneumothorax is seen. The bony thorax is grossly intact. IMPRESSION: 1. Cardiomegaly with evidence of congestive failure and interstitial edema. 2. Layering pleural effusions. 3. Airspace opacities are asymmetrically greater on the right. Correlate clinically for evidence of superimposed pneumonia. Electronically signed by: Russell Ty M.D. 02/07/2017 9:20 AM Dictated Date/Time: 02/07/2017 9:16 AM
[2017-02-07] MEDS ORDERED: LABETALOL HCL 5 MG/ML 20 ML VIAL - CCU EMERGENCY DRUG ONE (09:28)
[2017-02-07] MEDS ORDERED: NALOXONE HCL 0.4 MG/1 ML VIAL/CARP IV STA (09:30)
--- NOTE | 2017-02-07 09:57 | Progress Note ---
Internal Med Progress Note Date of Service: Feb 07, 2017. Provider Documentation: SUBJECTIVE: The patient was seen and Examined S/P Drainage of fluid collection from the back Very Drowsy this morning with SOB and low saturation of 70s Acute Change in mental status Transferred to ICU after starting initial management OBJECTIVE: Vital Signs-as noted below Exam: General-Severe SOB at rest Agitated at times Eyes-normal ENT-normal Neck-Supple Lungs-decreased breath sound bilaterally With widespread crackles Heart-Regular,no murmur appreciated Abdomen-Benign,no masses,bowel sound present Extremities-Trace edema bilaterally Neuro-AA Restless but not aggressive Generally weak and lethargic Lab data as noted below. 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 and severe diabetic gastroparesis s/p gastric pacemaker; chronic pain syndrome on long-term opioids s/p intrathecal pump, HTN, H/O of seizure disorder - recently admitted for infected and leaking intrathecal pump with surgical repair and on long-term antibiotics - presents secondary to worsening back pain and worsening nausea/vomiting Acute Respiratory Failure Acute SOB this morning:Differential includes-Fluid overload,CHF,Pneumonia- Aspiration ,Narcotic induced ,exacerbation associated with lung cancer or even ARDS With change in mental status and decreased saturation of 70s Received 1 dose of Narcan,60mg IV Lasix ,CXR and blood tests and started on NRB ABG ordered and the patient is transferred to ICU for continued care Has been on IV Vanco,Cefepime and Clindamycin ID,Ortho and Pain therapist are on board Persistent Intrathecal Pump Leakage and Infection Left Paraspinal Abscess Was discharged on 01/31 - during that admission, he had an I&D and stopped CSF leakage He had a PICC line put in and was discharged on 6 weeks of Vancomycin Abdominal/Pelvis CT suggests a persistent abscess around 4.2cm Patient is now on Cefepime, Clindamycin, and Vancomycin Appreciate ID input Appreciate Pain management and Spine Surgery input S/P I&D 02/05/17::No CSF leakage ,Old collection drained Continue current medications Bilateral Lower Extremity Swelling Possibly related to low protein Added boost TID-Nutrition consulted US negative for any clot HTN Has been on BB and Amlodipine and Lisinopril Still on the upper side Increase BB to 50mg BID Possible Aspiration Pneumonia Patient has had issues with nausea/vomiting He presented with some shortness of breath issues CXR suggests right perihilar and medial right lung base opacities suggesting atelectasis or pneumonia Added Clindamycin for anaerobic coverage Clinically better bur acutely SOB this morning Anasarca Likely from low protein Received one dose of IV Lasix Add boost glucose control Persistent Nausea/Vomiting He has a gastric pacemaker in, unfortunately, he still has persistent n/v Received one dose of Emend Continue Zofran PRN Chronic Pain on Long-Term Opioids Would appreciate pain management input Currently on PO hydromorphone 4mg q3hrs PRN Will try to avoid IV narcotics Asking for more pain medicine -appreciate Pain therapist input Insulin Dependent DM2 Currently on Lantus 12 units BID Insulin sliding scale Monitor blood sugars - he presented with hypoglycemia; now slightly hyperglycemic, we will monitor Hx. of Seizure Disorder continue Keppra DVT ppx Will start Lovenox 40 mg Daily starting at 6 PM this Evening FULL CODE Transferred to ICU Vital Signs: Date Time Temp Pulse Resp B/P (MAP) Pulse Ox O2 Delivery O2 Flow Rate FiO2 02/07/17 07:22 37.1 100 16 183/99 (127) 82 Nasal Cannula 5.0 02/07/17 04:24 38.1 101 22 152/82 (105) 89 Nasal Cannula 5.0 02/07/17 04:00 Nasal Cannula 4.0 02/07/17 00:00 Nasal Cannula 4.0 02/06/17 23:28 38.0 97 22 164/92 (116) 91 Nasal Cannula 4.0 02/06/17 20:00 Nasal Cannula 4.0 02/06/17 19:17 85 16 90 Nasal Cannula 4.0 02/06/17 18:57 36.7 95 16 167/91 (116) 91 Nasal Cannula 4.0 02/06/17 16:02 Nasal Cannula 2.0 02/06/17 15:16 36.7 91 20 149/84 (105) 95 Nasal Cannula 4.0 02/06/17 14:09 84 16 94 Nasal Cannula 4.0 02/06/17 12:00 Nasal Cannula 2.0 02/06/17 11:45 36.7 90 20 159/88 (111) 95 Nasal Cannula 2.0 Lab Results: Results Past 24 Hours Test 02/06/17 11:42 02/06/17 16:22 104/17 20:27 02/07/17 02:11 Range/Units Bedside Glucose 99 221 122 192 70-99 mg/dl Test 02/07/17 06:49 02/07/17 08:59 02/07/17 09:33 Range/Units Bedside Glucose 198 70-99 mg/dl Microbiology Results 02/07/17 Blood Culture, Ordered Pending 02/07/17 Blood Culture, Ordered Pending 02/07/17 MRSA DNA Surveillance Screen, Edgard Batch Pending
[2017-02-07 10:01] LABS: ISTAT ALLEN TEST Pass; ISTAT ARTERIAL BLOOD GAS HCO3 32 meq/L (19-24); ISTAT ARTERIAL BLOOD GAS PCO2 45 mmHg (35-46); ISTAT ARTERIAL BLOOD GAS PO2 73 mmHg (80-95); ISTAT ARTERIAL BLOOD GAS pH 7.46 (7.35-7.45); ISTAT CARBON DIOXIDE 33 mEq/l (24-31); ISTAT DELIVERY SYSTEM NonRb Mask; ISTAT FIO2 100 %; ISTAT SITE L Radial
[2017-02-07] MEDS: VANCOMYCIN INJ 1,500 MG in SODIUM CHLORIDE 0.9% 500ML 500 ML IV SCH (10:11)
[2017-02-07 10:50] LABS: BLOOD UREA NITROGEN 28 mg/dl (7-18); CALCIUM 8.7 mg/dl (8.5-10.1); CARBON DIOXIDE 31 mmol/L (21-32); CHLORIDE 102 mmol/L (98-107); GLUCOSE 204 mg/dl (70-99); MAGNESIUM 1.6 mg/dl (1.8-2.4); POTASSIUM 4.3 mmol/L (3.5-5.1); SODIUM 140 mmol/L (136-145)
[2017-02-07 10:55] LABS: PHOSPHORUS 3.4 mg/dl (2.5-4.9)
[2017-02-07 10:59] LABS: CSF APPEARANCE CLOUDY; CSF COLOR COLORLESS; CSF MONONUC RELAT 48.3 %
[2017-02-07] MEDS ORDERED: MODERATE STRESS LEVEL ONE (11:00)
[2017-02-07] MEDS ORDERED: INSULIN PROTOCOL GOAL RANGE ONE (11:00)
[2017-02-07] MEDS ORDERED: INSULIN IV INFUSION PROTOCOL ONE (11:00)
[2017-02-07 11:02] LABS: CSF CHEMISTRY TUBE # 1; CSF XANTHOCHROMIC NO XANTHOCHROMIA
--- NOTE | 2017-02-07 11:40 | DIAGNOSTIC IMAGING REPORT ---
CT SCAN OF THE BRAIN WITHOUT IV CONTRAST CLINICAL HISTORY: Change in mental status. Hypoxia. History of lung cancer. COMPARISON STUDY: CT of the brain dated 02/02/2017. TECHNIQUE: Unenhanced axial CT scan of the brain is performed from the vertex to the skull base. A dose lowering technique was utilized adhering to the principles of ALARA. CT DOSE: 1577.26 mGycm FINDINGS: Brain parenchyma: The brain parenchyma is normal in appearance. There is no hemorrhage, mass effect, or evidence of acute territorial ischemia by CT criteria. Saxena-white matter is preserved. No extra-axial fluid collection is seen. Ventricles, sulci, cisterns: Normal in configuration. Intracranial vasculature: The visualized intracranial vasculature at the skull base is normal in appearance. Calvarium: Unremarkable. Sinuses and mastoids: The visualized paranasal sinuses are clear. The mastoid air cells are well pneumatized. Orbits: The bony orbits are grossly intact. IMPRESSION: There is no hemorrhage, mass effect, or evidence of acute territorial ischemia by CT criteria. Electronically signed by: Russell Ty M.D. 02/07/2017 11:38 AM Dictated Date/Time: 02/07/2017 11:35 AM
[2017-02-07] MEDS ORDERED: INSULIN ASPART 100 UNITS/ML 3 ML PEN SC SCH (12:00)
--- NOTE | 2017-02-07 12:43 | Pain Management Progress Note ---
Pain Management Progress Note Date of Service Feb 07, 2017. Subjective Per nursing patient was drowsy over the course of the evening and whenever I entered the room this morning he appeared to have a change in mental status and was not conversant as he previously had been. I placed a pulse ox probe on his finger at which showed a reading of 78%. A initiated and oxymask and moved to a full 15 L nonrebreather with improvement and sats to about 88-89%. We administered Narcan 0.4 mg IV 1 to ensure that his change in status was not due to narcotics. He had minimal improvement in his mental status after Narcan but if his respiratory rate did increase to about 20. I spoke with Dr. Vernon the hospitalist and Lasix 60 minute grams IV 1 was given and a Peace was placed. A chest x-ray was taken which showed bibasilar infiltrates and atelectasis. His intrathecal pump was decreased by 50% to run at hydromorphone 0.16 mg per day. He was escorted to the ICU. Objective Vital Signs: Last Vital Signs Documentation Date Time Temp Pulse Resp B/P (MAP) Pulse Ox O2 Delivery O2 Flow Rate FiO2 02/07/17 07:22 37.1 100 16 183/99 (127) 82 Nasal Cannula 5.0 Physical Exam: Upon entrance to the room the patient is somnolent lying flat in his bed minimally conversant with noted sats of 78% BP 130s/105 He is oriented to self only Mucous membranes are moist pupils are equally reactive to light at about 4 mm Regular rate and rhythm is noted He has decreased breath sounds bilaterally with crackles and rhonchi scattered throughout both lung yarbrough right greater than left he has normal chest wall excursion Lumbar wound has sutures intact with mild fluctuance around the wound but no discharge, erythema, or drainage. The abdominal wound appears to be well healing with no fluctuance drainage discharge He moves all extremities easily without deficit Cranial nerves are grossly intact Laboratory Laboratory Review: results personally reviewed by me Laboratory Findings 02/06/17 03:29 Red Blood Count 2.94 L, Mean Corpuscular Volume 89.5, Mean Corpuscular Hemoglobin 27.2, Mean Corpuscular Hemoglobin Concent 30.4 L, Mean Platelet Volume 9.3, Neutrophils (%) (Auto) 60.3, Lymphocytes (%) (Auto) 22.3, Monocytes (%) (Auto) 11.3, Eosinophils (%) (Auto) 5.5, Basophils (%) (Auto) 0.4, Neutrophils # (Auto) 2.72, Lymphocytes # (Auto) 1.01 L, Monocytes # (Auto) 0.51 , Eosinophils # (Auto) 0.25, Basophils # (Auto) 0.02 RUN DATE: 02/07/17 [facility] [address] LAB PAGE 1 RUN TIME: 818 Specimen Inquiry PATIENT: NIKHIL MARTINS LOC: [place] U # : [id number] AGE/SX: 51/M ROOM: [facility] REG : 02/02/[address]: Stephon Vernon M.D. : 1965 BED: 1 DIS : STATUS: ADM IN TLOC: SPEC #: [id number] VADIM: 02/05/17 STATUS: RES REQ #: [id number] RECD: 02/05/[address]: Stephon Vernon M.D. SOURCE: DRAIN-DEEP ENTR: 02/05/[address]: Mauricio Gomez D.OKoko SPDES: Ike Holman MD, Boris M.D. Haroon, Salman A., DO Oconer, Joseph N., M.D. Thaker, Upendra., M.D. ORDERED: AER/BAY CULTSMR Procedure Result Verified Site GRAM STAIN Final 02/05/17 RESULT MANY POLYS NO ORGANISMS SEEN OR AER/BAY CULT Preliminary 02/07/17 NO GROWTH TO DATE. Imaging Radiology Findings Patient: NIKHIL MARTINS Address1: [address], [address] Med Rec: [id number] Address2: Acct ID: [id number] [facility] Zip: [place] [id number] Date: 1965 Sex: M Room/Bed: E106-1 Ref Phy: Bran Burgess M.D. SC: CARLOS Att Phy: Stephon Vernon M.D. Report #: [id number] [place]adna Phy: Bran Burgess M.D. Test: CXR1P Admit Phy: Navya Barfield DO Butcher Scullion: HILTON Interpreting Phy: Russell Ty M.D. Diagnosis: RESPIRATORY FAILURE, ACUTE Ordering Phy: Stephon Venron M.D. Service Date: 02/07/17 Admit Date: 02/01/1709/30/17 MNE: [id number] CONF: DICTATED BY: Russell Ty M.D.]] CC: Stephon Vernon M.D. Gabinskiy, Boris M.D. Endcc: [~ rep ct add3]] SINGLE VIEW CHEST CLINICAL HISTORY: Dyspnea. CHF. FINDINGS: An AP, portable, upright chest radiograph is compared to study dated 02/04/2017 and correlated with chest CT dated 01/20/2017. The examination is degraded by portable technique, motion artifact, and apical lordotic positioning. A right PICC line is unchanged in position. The heart appears mildly enlarged. There is pulmonary vascular congestion with interstitial edema. Airspace opacities are slightly asymmetric on the right as compared to the left. Small layering pleural effusions are identified. No pneumothorax is seen. The bony thorax is grossly intact. IMPRESSION: 1. Cardiomegaly with evidence of congestive failure and interstitial edema. 2. Layering pleural effusions. 3. Airspace opacities are asymmetrically greater on the right. Correlate clinically for evidence of superimposed pneumonia. Assessment 1. Discharge from lumbar catheter incision I&D performed 02/05/17 with stimulan (gent and vancomycin) antibiotic bead placement 2. Chronic neuropathic pain requiring implantation of intrathecal pump and catheter system-implant 12/25/2016 3. History of metastatic lung cancer 4. History of gastroparesis on gastric stimulator 5. Diabetes mellitus 6. Recent Pneumonia 7. Acute shortness of breath this morning with hypoxia and mental status changes Recommendations 1. I will access his catheter access port to withdraw a sample of CSF to send for testing today. Pending results will plan for possible explantation of the pump and catheter system versus continued antibiotics. DuraPrep was utilized for prepped with Betadine swabs. Sterile drapes applied. Under sterile conditions a 24-gauge Thomas needle from the catheter access port was utilized to access the catheter access port. Next 2 mL of fluid was aspirated from the catheter access port and discarded. Next 8 mL of CSF was aspirated off of the catheter and placed in 4 separate vials and sent for laboratory testing 2. Will consult hospitalist for assistance 3. Will continue to follow
[2017-02-07] MEDS ORDERED: FENTANYL CITRATE INJ 50 MCG/1 ML 2 ML VIAL ONE (12:45)
[2017-02-07] MEDS ORDERED: LIDO 2%/EPINEPHRINE 1:100000 20 ML VIAL INFIL ONE (12:46)
[2017-02-07] MEDS ORDERED: BUPIVACAINE/EPINEPHRINE 0.25% 1:200,000 30 ML VIAL ONE (12:46)
[2017-02-07] MEDS ORDERED: LIDOCAINE HCL 2% 2 ML VIAL (20MG/ML) ONE (12:47)
[2017-02-07] MEDS ORDERED: PROPOFOL IV EMULSION 10 MG/ML 20 ML VIAL IV ONE (12:47)
[2017-02-07] MEDS ORDERED: BACITRACIN 50000 UNIT VIAL ONE ×2 (12:47→13:58)
[2017-02-07] MEDS ORDERED: SUCCINYLCHOLINE CHLORIDE 20 MG/ML 10 ML VIAL IV ONE ×2 (13:40→19:59)
[2017-02-07] MEDS ORDERED: CLINDAMYCIN PHOS 150 MG/ML 2 ML VIAL ONE (13:40)
[2017-02-07] MEDS ORDERED: EpHEDrine SULFATE INJ 50 MG/ML AMP IV PRN (14:00)
[2017-02-07] MEDS ORDERED: ATROPINE SULFATE 0.1 MG/ML 5ML SYR IV PRN (14:00)
[2017-02-07] MEDS ORDERED: ONDANSETRON INJ 2 MG/ML 2 ML VIAL IV PRN (14:00)
[2017-02-07] MEDS ORDERED: FENTANYL CITRATE INJ 50 MCG/1 ML 2 ML VIAL IV PRN (14:00)
--- NOTE | 2017-02-07 14:11 | Progress Note ---
Subjective Date of Service: Feb 07, 2017. Subjective Pt in OR, events this am noted, resp distress, fever 38.1, transferred to ICU, csf sampled, 1800+ wbc. Cultures obtained, pending. No f/c. Previous cultures remain negative. blood cultures from 02/01 negative and final. remains on broad spectrum abx. Problem List Medical Problems: (1) Acute kidney injury Status: Acute (2) Altered mental status Status: Acute (3) Anemia Status: Acute (4) Chronic pain Status: Acute (5) Dehydration Status: Acute (6) Dehydration Status: Acute (7) Dehydration Status: Acute (8) Dehydration Status: Acute (9) Diabetes mellitus with hyperglycemia Status: Acute (10) Failure of outpatient treatment Status: Acute (11) Hypomagnesemia Status: Acute (12) Hypomagnesemia Status: Acute (13) Intractable vomiting Status: Acute (14) Intractable vomiting Status: Acute (15) Intrathecal pump infection Status: Acute (16) Orthostatic hypotension Status: Acute (17) Pneumonia Status: Acute (18) Post-operative complication Status: Acute (19) Sepsis Status: Acute (20) Vomiting Status: Acute (21) Vomiting Status: Acute Objective Vital Signs Date Time Temp Pulse Resp B/P (MAP) Pulse Ox O2 Delivery O2 Flow Rate FiO2 02/07/17 13:01 95 16 173/99 (123) 93 02/07/17 13:00 95 16 93 02/07/17 12:45 95 16 96 Non-Rebreather 15.0 02/07/17 12:31 93 17 171/97 (121) 97 02/07/17 12:30 94 14 97 02/07/17 12:15 95 15 99 02/07/17 12:01 94 16 164/99 (120) 96 02/07/17 12:00 94 16 96 Non-Rebreather 15.0 02/07/17 11:45 97 16 96 02/07/17 11:30 95 Oxymask 15.0 02/07/17 11:15 97 02/07/17 11:00 96 12 93 02/07/17 10:45 94 17 94 02/07/17 10:30 95 20 93 02/07/17 10:15 94 0 94 Non-Rebreather 15.0 02/07/17 10:00 94 0 97 02/07/17 09:45 97 23 95 02/07/17 09:41 97 23 177/103 (127) 95 02/07/17 09:30 100 27 191/111 (137) 94 Non-Rebreather 15.0 02/07/17 07:22 37.1 100 16 183/99 (127) 82 Nasal Cannula 5.0 02/07/17 04:24 38.1 101 22 152/82 (105) 89 Nasal Cannula 5.0 02/07/17 04:00 Nasal Cannula 4.0 02/07/17 00:00 Nasal Cannula 4.0 02/06/17 23:28 38.0 97 22 164/92 (116) 91 Nasal Cannula 4.0 02/06/17 20:00 Nasal Cannula 4.0 02/06/17 19:17 85 16 90 Nasal Cannula 4.0 02/06/17 18:57 36.7 95 16 167/91 (116) 91 Nasal Cannula 4.0 02/06/17 16:02 Nasal Cannula 2.0 02/06/17 15:16 36.7 91 20 149/84 (105) 95 Nasal Cannula 4.0 02/06/17 14:09 84 16 94 Nasal Cannula 4.0 Laboratory Results Item Value Date Time Gram Stain - Final Resulted 02/03/17 1035 Incision Site Back Gram Stain - Final Resulted 02/05/17 0826 Drainage-Deep Lumbar Blood Culture - Final Complete 02/01/17 2221 Blood NO GROWTH Blood Culture - Final Complete 02/01/17 2150 Blood NO GROWTH CSF WBC 1836 /uL *H 02/07/17 1015 Gram Stain - Final Resulted 02/07/17 1015 Cerebral Spinal Fluid Gram Stain - Final Resulted 02/05/17 0826 Drainage-Deep Lumbar Gram Stain - Final Resulted 02/03/17 1035 Incision Site Back Last 24 Hours Test 02/06/17 16:22 02/06/17 20:27 02/07/17 02:11 02/07/17 06:49 Bedside Glucose 221 mg/dl 122 mg/dl 192 mg/dl 198 mg/dl Test 02/07/17 09:33 02/07/17 09:49 02/07/17 10:10 02/07/17 10:15 Sodium Level 140 mmol/L Potassium Level 4.3 mmol/L Chloride Level 102 mmol/L Carbon Dioxide Level 31 mmol/L Anion Gap 7.0 mmol/L Blood Urea Nitrogen 28 mg/dl Creatinine 1.40 mg/dl Est Creatinine Clear Calc Drug Dose 73.5 ml/min Estimated GFR () 66.9 Estimated GFR (Non- 57.8 BUN/Creatinine Ratio 20.0 Random Glucose 204 mg/dl Calcium Level 8.7 mg/dl Phosphorus Level 3.4 mg/dl Magnesium Level 1.6 mg/dl Troponin I < 0.015 ng/ml Blood Gas Sample Site L Radial Bedside Blood Gas pH (LAB) 7.46 Bedside Blood Gas pCO2 (LAB) 45 mmHg Bedside Blood Gas pO2 (LAB) 73 mmHg Bedside Blood Gas HCO3 (LAB) 32 meq/L Bedside Blood Gas Total CO2 33 mEq/l Bedside Blood Gas Base Excess (LAB) 8.0 meq/L Bedside Blood Gas O2 Saturation 95.0 % Antonino Test Pass Oxygen Delivery Device NonRb Mask Bedside FiO2 100 % Procalcitonin 0.06 ng/ml CSF Color COLORLESS CSF Appearance CLOUDY CSF WBC 1836 /uL CSF RBC 20 /uL CSF Xanthrochromic NO XANTHOCHROMIA CSF Cell Count Tube # 3 CSF Mononuclear WBCs % 48.3 % CSF Polynuclear WBCs (%) 51.7 % CSF Chemistry Tube # 1 CSF Glucose 90 mg/dl CSF Total Protein 116.0 mg/dl Assessment and Plan (1) Infection of intrathecal pump Assessment & Plan: will continue abx and follow OR findings, cultures.
--- NOTE | 2017-02-07 15:24 | [facility] Post Operative Brief Note ---
Immediate Operative Summary Operative Date Feb 07, 2017. Pre-Operative Diagnosis Infected Intrathecal Pump Post-Operative Diagnosis Same as preoperative Procedure(s) Performed Removal of Intrathecal Pain Pump and catheter; Application of Wound Vac Surgeon Dr. Idalai Hernandez Aircraft P[employer] Repairer Surgeon(s) Dr. Henry Hope Estimated Blood Loss 25ml Findings uncomplicated removal of ITP and repair of CSF leak. Specimens PERMANENT: A.) Explanted Hardware, catheter, and Stimulan Beads CULTURE: 1.) Deep Abdominal Pocket 2.) Deep Lumbar Wound Anesthesia GETA Complication(s) None Disposition Surgical ICU
[2017-02-07] MEDS ORDERED: HALOPERIDOL LACTATE 5 MG/ML 1 ML VIAL ONE (15:43)
[2017-02-07] MEDS ORDERED: HYDROmorphone INJ 2 MG/ML SYR/VIAL IV PRN (15:45)
--- NOTE | 2017-02-07 15:50 | Operative Note-Pain Management ---
Pain Clinic Operative Note Procedure performed: Explantation of intrathecal pump and catheter delivery system. Application of 2 wound vacs, I&D of lumbar and right lower quadrant abdominal wounds, cultures were also obtained Anesthesia: Gen. endotracheal anesthesia Fluids: As per anesthetic record EBL: 25 mL Surgeon: Dr. Idalia Hernandez with Asst. Dr. Henry Hope Procedure description: The patient's intrathecal pump was determined to be an infectious risk and subsequently was recommended to be explanted. Consent was obtained from the patient's as the patient was not capable of consenting himself. The risks and benefits including infection, bleeding, damage to surrounding structures, headache, CSF leak, need for additional procedures, difficulty and pain control was discussed with the patient and his and agreed to proceed. The patient was on broad-spectrum antibiotics including cefepime, clindamycin, vancomycin prior to the procedure. These scheduled antibiotics were continued throughout the operative course. The patient was brought to the operating room and induced with general anesthesia in standard fashion. He was then placed in the left lateral decubitus position and all pressure points were checked prior to prep of the surgical site. The lumbar incision sutures were removed. Next the lumbar incision and abdominal right lower quadrant wounds were prepped with DuraPrep followed by Betadine swabs. Sterile drapes were placed in standard fashion with Ioban dressing covering. The right lower abdominal quadrant wound was incised with a 15 blade scalpel and hemostasis was achieved with electrocautery. Cultures were obtained from the deep intrathecal pump pocket. The intrathecal pump was easily removed and this anchor sutures as well as his many skin sutures is possible were removed to reduce risk of infection. Next the the intrathecal catheter was identified and ligating suture was placed over the intrathecal catheter and the catheter was cut. The intrathecal pump was removed and sent for exam. Next a the lumbar incision wound was incised with a 15 blade scalpel and cultures were taken from the deep lumbar wound incision. Hemostasis was achieved with electrocautery. The 2 anchors holding the intrathecal pump catheter in place were identified and the sutures were ligated and removed. The stimulan antibiotic beads were identified and removed. As many Vicryl sutures that were visible were removed. Next 3 pursestring sutures are made of 0 PDS were placed around the intrathecal pump site. The intrathecal pump catheter was removed and the pursestring sutures were tied with adequate control of CSF flow. Next the wound was irrigated with 3 bulb syringes of bacitracin infused saline. 1/2 inch Uniform gauze was packed into the wound and a wound VAC was placed in standard fashion. Finally the intrathecal right lower quadrant pump site was irrigated copiously with bacitracin infused saline and packed with iodoform gauze. Next a wound VAC was placed in standard fashion. The patient was placed in the supine position and emerge from general anesthesia without consultation. The patient was transported in stable condition back to the surgical ICU without any complications. I attest to the content of the Intraoperative Record and any orders documented therein. Any exceptions are noted below.
[2017-02-07] MEDS ORDERED: INSULIN HUMAN REGULAR IV BOLUS 2.5 UNIT in SYRINGE 0 ML IV ONE (17:00)
[2017-02-07] MEDS ORDERED: PROPOFOL IV EMULSION 10 MG/ML 100 ML VIAL IV ONE (17:50)
[2017-02-07] MEDS ORDERED: RAPID SEQUENCE INDUCTION BAG ONE (17:50)
--- NOTE | 2017-02-07 18:30 | Critical Care Consultation ---
Critical Care Consultation Date of Consultation: Feb 07, 2017. Attending Physician: Stephon Vernon M.D. Reason for Consultation: Acute change in mentation. History of Present Illness I personally examined this patient, reviewed his clinical and laboratory data, interpreted this x-ray, CT scan and formulated further plan of care. In summary, patient is a 51 year old man with complicated history including infected intrathecal pain pump growing MSSA from CSF. Patient was recently discharged on IV vancomycin. Patient was readmitted to the hospital on February 01 complaining of increased drainage and back pain. CT scan revealed 4.2 cm abscess at the pain pump insertion site. He underwent incision and drainage on 02/05/2017. Patient has been treated empirically with vancomycin, cefepime and clindamycin while awaiting for cultures. PICC line inserted on 01/17/2017. Patient developed significant lethargy with a course of the night. He has significant gastroparesis with gastric stimulator in situ. Patient vomited the 3 times today with possible aspiration in the setting of obtundation. He developed episode of hypoxemia with saturation in mid 70s. Patient was transferred critical ill to the surgical intensive care unit for further management. Past Medical/Surgical History Non-small cell carcinoma of the lung status post resection and incomplete chemotherapy DVT intolerance Diabetes mellitus Diabetic gastroparesis, gastric stimulator in situ Hypertension Anemia Seizure disorder Chronic back pain, Dilaudid pain pump in site Family History Cancer Diabetes mellitus Hypertension Social History Smoking Status: Former Smoker Smokeless Tobacco Use: No Alcohol Use: none Drug Use: none Marital Status: Housing Status: lives with family Occupation Status: disabled Allergies Coded Allergies: BEE STING (Verified Allergy, Mild, SWELLING AT SITE, SOB, 02/01/17) Penicillins (Unverified Allergy, Unknown, "SINCE "-Amoxicillin, ) Home Medications Scheduled Albuterol Hfa (Ventolin Hfa), 2-4 PUFFS INH Q6H Amlodipine (Norvasc), 5 MG PO DAILY Aspirin (Aspirin Ec), 81 MG PO QAM Folic Acid (Folvite), 1 TAB PO QAM Gabapentin (Gabapentin), 1 TAB PO TID Insulin Aspart (Novolog), 5 UNITS SC ACHS Insulin Glargine (Lantus), 20 UNITS SC QPM Insulin Glargine (Lantus), 20 UNITS SC QPM Levetiracetam (Keppra), 750 MG PO BID Magnesium Chloride (Slow-Mag Tab), 64 MG PO BID Metoprolol Tartrate (Lopressor) (Lopressor), 25 MG PO BID Multiple Vitamin (Multivitamins), 1 CAP PO QAM Pantoprazole (Protonix), 40 MG PO QAM Vancomycin HCl in Sodium Chlor (Vancomycin Hydrochloride/ 1.25-0.9 gm/250Ml-%), 1,250 MG IV DAILY Venlafaxine Hcl (Effexor Xr), 37.5 MG PO QAM Scheduled PRN Acetaminophen (Tylenol), 650 MG PO TID PRN for Pain Epinephrine (Epipen), 0.3 MG IM UD PRN for ALLERGIC REACTION Hydromorphone Hcl (Dilaudid), 8 MG PO Q8 PRN for Pain Metoclopramide Hcl (Reglan), 10 MG PO ACHS PRN for Nausea Ondansetron (Ondansetron HCl), 8 MG PO Q8 PRN for Nausea Promethazine Hcl (Phenergan Suppository), 25 MG MN Q4H PRN for Nausea or Vomiting Current Inpatient Medications Current Inpatient Medications Medications (Trade) Dose Ordered Sig/Cal Route Start Time Stop Time Status Last Admin Dose Admin Glucose (Glucose 40% Gel) 15-30 GRAMS 15 GRAMS... UD PRN PO 02/02/17 03:45 03/04/17 03:44 Glucose (Glucose Chew Tab) 4-8 Tablets 4 Tabl... UD PRN PO 02/02/17 03:45 03/04/17 03:44 Dextrose (Dextrose 50% 50ML Syringe) 25-50ML OF 50% DW IV FOR... UD PRN IV 02/02/17 03:45 03/04/17 03:44 Glucagon (Glucagon Inj) 1 mg UD PRN SQ 02/02/17 03:45 03/04/17 03:44 Clindamycin Phosphate 600 mg/ Dextrose 54 ml @ 100 mls/hr Q8H IV 02/02/17 04:00 02/09/17 03:59 02/07/17 03:38 100 MLS/HR Clindamycin Phosphate (Consult) 1 ea UD PRN N/A 02/02/17 04:45 03/04/17 04:44 Aspirin (Ecotrin Tab) 81 mg QAM PO 02/02/17 09:00 03/04/17 08:59 02/07/17 07:43 81 MG Folic Acid (Folvite Tab) 1 mg QAM PO 02/02/17 09:00 03/04/17 08:59 02/07/17 07:43 1 MG Gabapentin (Neurontin Tab) 600 mg TID PO 02/02/17 09:00 03/04/17 08:59 02/06/17 20:42 600 MG Levetiracetam (Keppra Tab) 750 mg BID PO 02/02/17 09:00 03/04/17 08:59 02/07/17 07:42 750 MG Pantoprazole Sodium (Protonix Tab) 40 mg QAM PO 02/02/17 09:00 03/04/17 08:59 02/07/17 07:44 40 MG Venlafaxine HCl (effeXOR EXTENDED REL CAP) 37.5 mg QAM PO 02/02/17 09:00 03/04/17 08:59 02/07/17 07:43 37.5 MG Multivitamins/ Minerals (Multivitamin W/ Minerals Tab) 1 tab QAM PO 02/02/17 09:00 03/04/17 08:59 02/07/17 07:44 1 TAB Ipratropium [place] (Atrovent 0.02% 0.5MG/2.5ML Neb) 0.5 mg Q6R INH 02/02/17 09:00 03/04/17 08:59 02/06/17 19:14 0.5 MG Levalbuterol (Xopenex 1.25MG/ 0.5ML Neb) 1.25 mg Q6R INH 02/02/17 09:00 03/04/17 08:59 02/06/17 19:14 1.25 MG Ipratropium [place] (Atrovent 0.02% 0.5MG/2.5ML Neb) 0.5 mg Q4H PRN INH 02/02/17 04:00 03/04/17 03:59 Levalbuterol (Xopenex 1.25MG/ 0.5ML Neb) 1.25 mg Q4H PRN INH 02/02/17 04:00 03/04/17 03:59 Cefepime HCl (Consult) 1 ea UD PRN N/A 02/02/17 04:45 03/04/17 04:44 Vancomycin HCl (Consult) 1 ea UD PRN N/A 02/02/17 04:45 03/04/17 04:44 Cefepime HCl 2000 mg/Dextrose 112.5 ml @ 225 mls/hr Q8H IV 02/02/17 08:00 02/09/17 07:59 02/07/17 16:01 225 MLS/HR Senna/Docusate Sodium (Senokot S Tab) 1 tab QAM PO 02/02/17 09:00 03/04/17 08:59 02/07/17 07:44 1 TAB Hydromorphone HCl (Dilaudid Tab) 4 mg Q3HWA PRN PO 02/02/17 16:15 02/16/17 03:44 02/06/17 15:56 4 MG Heparin Sodium (Porcine) (Heparin 10 Unit/ ml 5 ml Flush) 5 ml PRN PRN FLUSH 02/03/17 00:30 03/05/17 00:29 02/04/17 17:30 5 ML Ondansetron HCl (Zofran Inj) 4 mg Q6H PRN IV 02/03/17 02:45 03/05/17 02:44 02/05/17 02:05 4 MG Promethazine HCl 12.5 mg/Sodium Chloride 50.5 ml @ 204 mls/hr Q6H PRN IV 02/03/17 02:45 03/05/17 02:44 02/07/17 02:35 204 MLS/HR Lorazepam (Ativan Inj) 0.25 mg Q6H PRN IV 02/03/17 06:00 03/05/17 05:59 02/05/17 22:34 0.25 MG Vancomycin HCl 1500 mg/Sodium Chloride 530 ml @ 200 mls/hr Q24H IV 02/04/17 04:00 03/02/17 23:59 Future hold 02/07/17 10:11 200 MLS/HR Enteral Nutritional Formula (Boost Glucose Control) 1 can TIDM PO 02/03/17 16:45 03/05/17 16:44 02/07/17 07:52 1 CAN Amlodipine Besylate (Norvasc Tab) 10 mg DAILY PO 02/04/17 09:00 03/04/17 08:59 02/07/17 07:43 10 MG Lisinopril (Zestril Tab) 5 mg QAM PO 02/04/17 09:00 03/06/17 08:59 02/07/17 07:42 5 MG Enoxaparin Sodium (Lovenox Inj) 40 mg DAILY@1800 SQ 02/05/17 18:00 03/07/17 17:59 02/06/17 17:48 40 MG Metoprolol Tartrate (Lopressor Tab) 50 mg BID PO 02/05/17 21:00 03/04/17 08:59 02/07/17 07:45 50 MG Acetaminophen 650 mg/Empty Bag 65 ml @ 260 mls/hr Q6H PRN IV 02/07/17 02:30 03/09/17 02:29 02/07/17 02:50 260 MLS/HR Fentanyl Citrate (Fentanyl Inj) 50 mcg Q5M PRN IV 02/07/17 14:00 02/07/17 20:00 Ondansetron HCl (Zofran Inj) 4 mg ONE PRN IV 02/07/17 14:00 02/07/17 20:00 Ephedrine Sulfate (EpHEDrine SULFATE INJ) 5 mg Q5M PRN IV 02/07/17 14:00 02/07/17 20:00 Atropine Sulfate (Atropine Sulfate 0.1MG/Ml Inj) 0.5 mg Q1M PRN IV 02/07/17 14:00 02/07/17 20:00 Hydromorphone HCl (Dilaudid Inj) 2 mg Q2H PRN IV 02/07/17 15:45 02/21/17 15:44 02/07/17 17:36 1 MG Insulin Aspart (novoLOG ASPART) [facility] 02/07/17 17:15 03/09/17 17:14 Insulin Human Regular 250 units/ Sodium Chloride 252.5 ml @ 0 mls/hr DAILY@1130 IV 02/07/17 17:00 03/09/17 16:59 Review of Systems Not obtainable as patient is lethargic and not able to provide with history. He vomited a few times which is usual for him. He appears to using his accessory muscles and appears uncomfortable. Physical Exam Date Time Temp Pulse Resp B/P (MAP) Pulse Ox O2 Delivery O2 Flow Rate FiO2 02/07/17 17:25 100 95 Oxymask 15.0 02/07/17 17:16 99 21 187/103 (131) 90 02/07/17 17:15 100 21 90 02/07/17 17:01 102 192/107 (135) 02/07/17 17:00 103 02/07/17 16:46 99 21 182/104 (130) 91 02/07/17 16:45 100 19 95 02/07/17 16:31 98 18 167/99 (121) 95 02/07/17 16:30 96 21 90 Oxymask 15.0 02/07/17 16:16 98 18 188/105 (132) 91 02/07/17 16:15 93 Oxymask 15.0 02/07/17 16:15 99 22 91 02/07/17 16:01 97 19 184/103 (130) 94 02/07/17 16:00 97 21 94 02/07/17 15:51 97 20 173/97 (122) 91 02/07/17 15:45 98 22 92 02/07/17 15:40 37.4 98 25 187/106 (133) 91 Oxymask 15.0 02/07/17 15:31 96 23 161/88 (112) 92 02/07/17 15:30 97 27 93 02/07/17 15:28 95 20 168/98 (121) 90 02/07/17 13:01 95 16 173/99 (123) 93 02/07/17 13:00 95 16 93 02/07/17 12:45 95 16 96 Non-Rebreather 15.0 02/07/17 12:31 93 17 171/97 (121) 97 02/07/17 12:30 94 14 97 02/07/17 12:15 95 15 99 02/07/17 12:01 94 16 164/99 (120) 96 02/07/17 12:00 94 16 96 Non-Rebreather 15.0 02/07/17 11:45 97 16 96 02/07/17 11:30 95 Oxymask 15.0 02/07/17 11:15 97 02/07/17 11:00 96 12 93 02/07/17 10:45 94 17 94 02/07/17 10:30 95 20 93 02/07/17 10:15 94 0 94 Non-Rebreather 15.0 02/07/17 10:00 94 0 97 02/07/17 09:45 97 23 95 02/07/17 09:41 97 23 177/103 (127) 95 02/07/17 09:30 100 27 191/111 (137) 94 Non-Rebreather 15.0 02/07/17 07:22 37.1 100 16 183/99 (127) 82 Nasal Cannula 5.0 02/07/17 04:24 38.1 101 22 152/82 (105) 89 Nasal Cannula 5.0 02/07/17 04:00 Nasal Cannula 4.0 02/07/17 00:00 Nasal Cannula 4.0 02/06/17 23:28 38.0 97 22 164/92 (116) 91 Nasal Cannula 4.0 02/06/17 20:00 Nasal Cannula 4.0 02/06/17 19:17 85 16 90 Nasal Cannula 4.0 02/06/17 18:57 36.7 95 16 167/91 (116) 91 Nasal Cannula 4.0 General Appearance: moderate distress Head: normocephalic, atraumatic Eyes: PERRLA, no discharge, EOMI ENT: normal ear exam, normal nasal exam, normal mouth exam Neck: normal range of motion, no tenderness, trachea midline Respiratory: accessory muscle use, respiratory distress, rhonchi Cardiovasular: regular rate/rhythm, normal S1S2, normal peripheral pulses Abdomen: non tender, no rebound, no masses, other (there is right lower quadrant incision with pain pump implanted subcutaneously) Back: normal inspection Upper Extremities: no edema, no deformity Lower Extremities: no edema, no deformity Neuro: lethargic, confused, other (moves all extremities spontaneously) Laboratory Results Last 24 Hours Test 02/06/17 20:27 02/07/17 02:11 02/07/17 06:49 02/07/17 09:33 Bedside Glucose 122 mg/dl 192 mg/dl 198 mg/dl Sodium Level 140 mmol/L Potassium Level 4.3 mmol/L Chloride Level 102 mmol/L Carbon Dioxide Level 31 mmol/L Anion Gap 7.0 mmol/L Blood Urea Nitrogen 28 mg/dl Creatinine 1.40 mg/dl Est Creatinine Clear Calc Drug Dose 73.5 ml/min Estimated GFR () 66.9 Estimated GFR (Non- 57.8 BUN/Creatinine Ratio 20.0 Random Glucose 204 mg/dl Calcium Level 8.7 mg/dl Phosphorus Level 3.4 mg/dl Magnesium Level 1.6 mg/dl Troponin I < 0.015 ng/ml Test 02/07/17 09:49 02/07/17 10:10 02/07/17 10:15 02/07/17 16:05 Blood Gas Sample Site L Radial Bedside Blood Gas pH (LAB) 7.46 Bedside Blood Gas pCO2 (LAB) 45 mmHg Bedside Blood Gas pO2 (LAB) 73 mmHg Bedside Blood Gas HCO3 (LAB) 32 meq/L Bedside Blood Gas Total CO2 33 mEq/l Bedside Blood Gas Base Excess (LAB) 8.0 meq/L Bedside Blood Gas O2 Saturation 95.0 % Antonino Test Pass Oxygen Delivery Device NonRb Mask Bedside FiO2 100 % Procalcitonin 0.06 ng/ml CSF Color COLORLESS CSF Appearance CLOUDY CSF WBC 1836 /uL CSF RBC 20 /uL CSF Xanthrochromic NO XANTHOCHROMIA CSF Cell Count Tube # 3 CSF Mononuclear WBCs % 48.3 % CSF Polynuclear WBCs (%) 51.7 % CSF Chemistry Tube # 1 CSF Glucose 90 mg/dl CSF Total Protein 116.0 mg/dl Bedside Glucose 249 mg/dl Assessment & Plan 1. Sepsis. Differential diagnosis includes aspiration pneumonia, intrathecal pump related CSF infection, PICC line infection. Pain pump intrathecal port was aspirated with CSF revealing 1800 WBCs in the setting of treatment with antibiotics. Decision was made to proceed with discontinuation of intrathecal pump. CSF and blood cultures are pending. Should blood cultures come back positive will discontinue PICC line in place central line. Meanwhile, we'll continue with vancomycin for 6 weeks, cefepime and clindamycin while awaiting for cultures. Pro-calcitonin and CRP levels were checked. 2. Acute respiratory failure. Patient developed aspiration pneumonitis with possible component of bacterial infection. Current antibiotic regimen should provide adequate coverage. Patient developed significant episode of hypoxemia. Chest x-ray revealed bilateral infiltrates more pronounced on the right side. I'm concerned about his ability to protect the airway in the setting of significant lethargy. We will proceed with intubation. Patient was placed on assist-control ventilator mode, 60% of oxygen, PEEP of 8, tidal volumes 500. I reviewed ABGs which were appropriate. 3. Hypertension. We will use labetalol and sedation to keep SBP below 160. Echocardiography revealed normal biventricular systolic function, left ventricular hypertrophy, moderate MR. No signs of cardiac ischemia. 4. Gastroparesis. Gastric stimulator in situ. NG tube was placed, we'll continue with low intermittent suctioning. We will start tube feeds in the morning. 5. Renal insufficiency. We'll monitor urinary output, replace it with colitis appropriately. 6. Metabolic encephalopathy, likely related to CSF infection. Expect improvement with treatment of sepsis. CT scan was obtained and did not reveal any metastatic lesions. 7. Moderate anemia, no signs of bleeding. 8. Hyperglycemia, will adjust insulin coverage. 9. Pain management with fentanyl drip 100 migrans per hour, sedation with propofol. 10. GI/DVT prophylaxis. I had an extensive conversation with patient's family at the bedside and over the phone. I spent total 75 minutes of critical care time evaluating and managing this patient.
--- NOTE | 2017-02-07 18:38 | DIAGNOSTIC IMAGING REPORT ---
CHEST ONE VIEW PORTABLE HISTORY: 51 years-old Male INTUBATION respiratory failure with intubation COMPARISON: Portable chest radiograph 02/07/2017 TECHNIQUE: Supine AP view of the chest FINDINGS: Endotracheal tube has been placed overlying the midline, 4.2 cm proximal to the efrain. An enteric tube is also present overlying the midline extending below the field of view. Right-sided PICC is noted, unchanged in positioning. The cardiac silhouette is mildly enlarged. No pneumothorax. The inferior lung bases are excluded from the [id number]. Small left pleural effusion redemonstrated with multifocal mixed interstitial and alveolar opacities. There is worsened disease within the left upper lobe. Bones appear grossly intact. IMPRESSION: 1. Endotracheal tube terminates 4.2 cm superior to the efrain. Enteric tube courses below the field of view. 2. Cardiomegaly with persistent mixed interstitial and alveolar opacities suggesting pulmonary edema with decreased aeration of the left upper lobe from comparison. Superimposed atelectasis or pneumonia would be difficult to exclude. 3. Small left pleural effusion. The above report was generated using voice recognition software. It may contain grammatical, syntax or spelling errors. Electronically signed by: Richard Metzger M.D. 02/07/2017 6:36 PM Dictated Date/Time: 02/07/2017 6:33 PM
[2017-02-07] MEDS: INSULIN REGULAR 250 UNITS in SODIUM CHLORIDE 0.9% 250ML 250 ML IV SCH (18:41)
[2017-02-07 18:53] LABS: ISTAT ALLEN TEST Pass; ISTAT ARTERIAL BLOOD GAS HCO3 32 meq/L (19-24); ISTAT ARTERIAL BLOOD GAS PCO2 49 mmHg (35-46); ISTAT ARTERIAL BLOOD GAS PO2 91 mmHg (80-95); ISTAT ARTERIAL BLOOD GAS pH 7.42 (7.35-7.45); ISTAT CARBON DIOXIDE 33 mEq/l (24-31); ISTAT DELIVERY SYSTEM Ventilator; ISTAT FIO2 60 %; ISTAT PEEP 5; ISTAT RATE 14; ISTAT SITE L Radial; VE 9.2; Vt 500
[2017-02-07] MEDS: ENOXAPARIN 40 MG/0.4 ML SYR SQ SCH (18:55)
--- NOTE | 2017-02-07 19:05 | Progress Note ---
Progress Note Date of Service Feb 07, 2017. Progress Note Procedure: Intubation. Indication: Acute respiratory failure, hypoxemia, bilateral lung infiltrates, questionable ability to protect the airway. Sedation: Etomidate 30 mg, succinylcholine 100 mg IV 1. Patient was bagged with 100% O2. After appropriate sedation was obtained Mac # 3 was used. I was not able to visualize vocal cords. Glider scope was used with good visualization of vocal cords. Endotracheal tube #7.5 was inserted without any difficulty. Patient tolerated procedure well. No episode of aspiration. Chest x-ray revealed adequate the endotracheal tube positioning. I performed the entire procedure myself.
[2017-02-07] MEDS ORDERED: ETOMIDATE 2 MG/ML 20 ML VIAL IV ONE (19:59)
[2017-02-07] MEDS: FENTANYL 1250MCG/250ML NSS 250 ML IV PRN (21:24)
[2017-02-07] MEDS: PROPOFOL IV EMULSION 10 MG/ML 100 ML VIAL IV PRN (21:25)
[2017-02-08] VITALS (21 sets, daily range): BP systolic 97–173; BP diastolic 58–98; PULSE 64–97; TEMP 36.6–37.7; O2SAT 95–100
[2017-02-08] MEDS: CEFEPIME IV 2000 MG in DEXTROSE 5% 100ML IV SCH ×4 (00:03→23:43)
[2017-02-08] MEDS: DEXTROSE 50% 50 ML SYR IV PRN (00:16)
[2017-02-08] MEDS: LEVALBUTEROL 1.25MG/0.5ML NEB INH SCH ×3 (02:05→14:09)
[2017-02-08] MEDS: IPRATROPIUM BROMIDE NEB SOLN 0.02% 2.5 ML VIAL INH SCH ×3 (02:05→14:09)
[2017-02-08] MEDS: CLINDAMYCIN IV 600 MG in DEXTROSE 5% 50ML 50 ML IV SCH ×3 (04:31→19:47)
[2017-02-08] MEDS: VANCOMYCIN INJ 1,500 MG in SODIUM CHLORIDE 0.9% 500ML 500 ML IV SCH (04:31)
[2017-02-08 05:15] LABS: ISTAT ALLEN TEST Pass; ISTAT ARTERIAL BLOOD GAS HCO3 34 meq/L (19-24); ISTAT ARTERIAL BLOOD GAS PCO2 48 mmHg (35-46); ISTAT ARTERIAL BLOOD GAS PO2 175 mmHg (80-95); ISTAT ARTERIAL BLOOD GAS pH 7.46 (7.35-7.45); ISTAT CARBON DIOXIDE 36 mEq/l (24-31); ISTAT DELIVERY SYSTEM Ventilator; ISTAT FIO2 60 %; ISTAT PEEP 8; ISTAT RATE 14; ISTAT SITE R Radial; VE 7; Vt 500
[2017-02-08 06:29] LABS: BUN/CREATININE RATIO 21.6 (10-20); CALCIUM 7.9 mg/dl (8.5-10.1); CREATININE 1.4 mg/dl (0.60-1.40); MAGNESIUM 1.6 mg/dl (1.8-2.4)
[2017-02-08 06:32] LABS: ALB/GLOB RATIO 0.6 (0.9-2); PHOSPHORUS 3.8 mg/dl (2.5-4.9)
[2017-02-08] MEDS: BOOST GLUCOSE CONTROL PO SCH (07:15)
[2017-02-08] MEDS: INSULIN ASPART 100 UNITS/ML 3 ML PEN SC SCH ×4 (08:00→21:00)
[2017-02-08] MEDS: PANTOprazole SOD 40 MG TAB PO SCH (08:15)
[2017-02-08] MEDS: METOPROLOL TARTRATE 25 MG TAB PO SCH ×2 (08:15→19:52)
[2017-02-08] MEDS: DOCUSATE SODIUM/SENNA 50/8.6MG TAB PO SCH (08:15)
--- NOTE | 2017-02-08 08:23 | Procedure Note ---
Procedure Note Procedure Date Feb 07, 2017. Procedure Description Procedure Name: Date of Service 02/07/2017. Procedure: Intubation. Indication: Acute respiratory failure, hypoxemia, bilateral lung infiltrates, questionable ability to protect the airway. Sedation: Etomidate 30 mg, succinylcholine 100 mg IV 1. Patient was bagged with 100% O2. After appropriate sedation was obtained Mac # 3 was used. I was not able to visualize vocal cords. Glider scope was used with good visualization of vocal cords. Endotracheal tube #7.5 was inserted without any difficulty. Patient tolerated procedure well. No episode of aspiration. Chest x-ray revealed adequate the endotracheal tube positioning. I performed the entire procedure myself.
[2017-02-08] MEDS: GABAPENTIN 600 MG TAB PO SCH ×4 (08:26→19:51)
[2017-02-08] MEDS: ASPIRIN 81 MG ECTAB PO SCH (08:26)
[2017-02-08] MEDS: AMLODIPINE BESYLATE 5 MG TAB PO SCH (08:26)
[2017-02-08] MEDS: CEROVITE ADV FORMULA TAB PO SCH (08:27)
[2017-02-08] MEDS: LEVETIRACETAM 250 MG TAB PO SCH ×2 (08:27→19:50)
[2017-02-08] MEDS: VENLAFAXINE HCL XR 37.5 MG CAPXR PO SCH (08:27)
[2017-02-08] MEDS: LISINOPRIL 5 MG TAB PO SCH (08:28)
--- NOTE | 2017-02-08 09:20 | Anesthesiology Progress Note ---
Anesthesia Post Op Note Date & Time Feb 08, 2017 at 09:18 Vital Signs Vital Signs Past 12 Hours Date Time Temp Pulse Resp B/P (MAP) Pulse Ox O2 Delivery O2 Flow Rate FiO2 02/08/17 07:39 83 14 100 Mechanical Ventilator 50 02/08/17 07:37 50 02/08/17 06:00 37.4 85 16 128/76 (93) 100 Mechanical Ventilator 50 02/08/17 05:05 50 02/08/17 05:00 50 02/08/17 04:00 Mechanical Ventilator 60 02/08/17 04:00 37.4 76 14 124/76 (92) 95 Mechanical Ventilator 60 02/08/17 02:06 60 02/08/17 02:05 73 14 100 Mechanical Ventilator 60 02/08/17 02:00 37.3 97 16 105/66 (79) 97 Mechanical Ventilator 60 02/08/17 00:01 37.4 74 16 97/58 (71) 95 Mechanical Ventilator 60 02/07/17 23:59 95 Mechanical Ventilator 60 02/07/17 23:10 60 02/07/17 22:00 77 15 117/70 (86) 100 Mechanical Ventilator 60 Notes Mental Status: see Notes Nausea / Vomiting: adequately controlled Pain: adequately controlled Airway Patency, RR, SpO2: stable & adequate, see Notes BP & HR: stable & adequate Hydration State: stable & adequate Anesthetic Complications: no major complications apparent Patient is intubated and on the ventilator, being sedated. Hemodynamically stable.
[2017-02-08] MEDS: FENTANYL 1250MCG/250ML NSS 250 ML IV PRN (09:31)
[2017-02-08 09:59] LABS: HEMATOCRIT 23.1 % (42-52); MEAN CELL VOLUME 88.5 fL (80-100); MEAN CORPUSCULAR HEMOGLOBIN 29.1 pg (25-34); MEAN CORPUSCULAR HGB CONC 32.9 g/dl (32-36); MEAN PLATELET VOLUME 9.5 fL (7.4-10.4); PLATELET COUNT 168 K/uL (130-400); RED BLOOD COUNT 2.61 M/uL (4.7-6.1); WHITE BLOOD COUNT 4.32 K/uL (4.8-10.8)
[2017-02-08] MEDS: MAGNESIUM SULFATE 1GM / D5W 1 GM in PREMIXED IN D5W 100 ML IV SCH ×2 (10:57→12:03)
--- NOTE | 2017-02-08 11:22 | Pharmacy Progress Note ---
Glycemic Control Intl Consult Date of Service Feb 08, 2017. Scope Glycemic Pharmacist consulted by MAURICIO Taylor on 02/07/17 for glycemic control and to write orders per [facility] inpatient glycemic control protocol. Objective Weight (Kilograms): 105.500 Accuchecks BSG (last 24hrs): Test 02/07/17 16:05 02/07/17 20:01 02/07/17 21:30 02/08/17 00:06 Bedside Glucose 249 mg/dl (70-99) 197 mg/dl (70-99) 158 mg/dl (70-99) 84 mg/dl (70-99) Test 02/08/17 00:23 02/08/17 01:33 02/08/17 01:51 02/08/17 02:19 Bedside Glucose 175 mg/dl (70-99) 96 mg/dl (70-99) 91 mg/dl (70-99) 97 mg/dl (70-99) Test 02/08/17 02:47 02/08/17 03:20 02/08/17 04:15 02/08/17 05:26 Bedside Glucose 104 mg/dl (70-99) 112 mg/dl (70-99) 112 mg/dl (70-99) Random Glucose 118 mg/dl (70-99) Test 02/08/17 06:14 02/08/17 10:16 Bedside Glucose 128 mg/dl (70-99) 145 mg/dl (70-99) Laboratory Data (last 24hrs) Test 02/08/17 05:26 Anion Gap 4.0 mmol/L BUN/Creatinine Ratio 21.6 Blood Urea Nitrogen 30 mg/dl Creatinine 1.40 mg/dl Potassium Level 4.0 mmol/L Sodium Level 140 mmol/L White Blood Count 4.32 K/uL Recent Pertinent Medications Outpatient Anti-diabetic Regimen: * Lantus 20 units SQ QPM * Novolog 5 units SQ ACHS, plus sliding scale * A1c = 7.2% (01/19/17) The patient is currently receiving: * IV insulin infusion Risk Factors for Insulin Resistance: * Infection: on IV Vanco/Clinda/Cefepime for infected intrathecal pump/? meningitis * IVF: fentanyl gtt, propofol * Recent Surgery: POD #3 s/p I&D, POD #1 infected pump removal * Diet: Tube feeds starting this morning, Peptamen @20mL/hr --> goal 65mL/hr * Mechanical Ventilation: yes Assessment & Plan ASSESSMENT: * Mr Hamilton is a 51yo diabetic male with a complicated medical history. * He is admitted with an infected intrathecal pain pump, ?meningitis. * Pt underwent I&D on 02/05 and was taken to the OR yesterday to remove the infected pump. * Pt remains on mechanical ventilation today and will be initiated on tube feeds. * Pt was placed on insulin gtt yesterday d/t hyperglycemia and change in status. * ADA & AACE recommend a goal blood sugar range 140-180 mg/dl for the majority of critically ill & non-critically ill patients. However, more stringent targets may be selected in individual cases. Insulin infusion goal range ordered as 110-190mg/dL, which should produce BSGs within ICU goal range and require minimal rate adjustments. PLAN FOR INPATIENT GLYCEMIC CONTROL: * Would recommend continuing insulin gtt until patient is stable and there are fewer anticipated changes in his medical management. * Patient's BSGs have been stable for several hours with insulin gtt infusing at a low rate. Monitoring has only been required q2h. * Please note that the plan above was derived based on current level of insulin resistance and hospital stress. These recommendations are appropriate for inpatient admission only. Plan of care upon discharge will need to be reassessed to avoid potential outpatient hypo/hyperglycemia. Thank you.
[2017-02-08] MEDS: PROPOFOL IV EMULSION 10 MG/ML 100 ML VIAL IV PRN ×3 (12:36→18:28)
[2017-02-08] MEDS: INSULIN REGULAR 250 UNITS in SODIUM CHLORIDE 0.9% 250ML 250 ML IV SCH (13:32)
--- NOTE | 2017-02-08 13:40 | Wound Consultation: Inpatient ---
Wound Consultation Date of Consultation: Feb 08, 2017. Attending Physician: Stephon Vernon M.D. Reason for Consultation: Post operative wounds to the right lower quadrant of the abdomen and back History of Present Illness Patient was recently admitted to [facility] for further evaluation of control and respiratory failure. Patient underwent surgical removal of a pump yesterday. The wounds were left in both the back and abdominal region following the procedure. Both areas were packed with gauze and a wound VAC had been applied. Patient is currently nonverbal a respirator in the intensive care unit. Patient has had a long history of difficulty with pain control and multiple pain pump placement. No further history is obtainable at this time from the patient due to his critical status. Family History Cancer Diabetes mellitus Hypertension Social History Smoking Status: Former Smoker Smokeless Tobacco Use: No Alcohol Use: none Drug Use: none Marital Status: Housing Status: lives with family Occupation Status: disabled Allergies Coded Allergies: BEE STING (Verified Allergy, Mild, SWELLING AT SITE, SOB, 02/01/17) Penicillins (Unverified Allergy, Unknown, "SINCE "-Amoxicillin, ) Home Medications Scheduled Albuterol Hfa (Ventolin Hfa), 2-4 PUFFS INH Q6H Amlodipine (Norvasc), 5 MG PO DAILY Aspirin (Aspirin Ec), 81 MG PO QAM Folic Acid (Folvite), 1 TAB PO QAM Gabapentin (Gabapentin), 1 TAB PO TID Insulin Aspart (Novolog), 5 UNITS SC ACHS Insulin Glargine (Lantus), 20 UNITS SC QPM Insulin Glargine (Lantus), 20 UNITS SC QPM Levetiracetam (Keppra), 750 MG PO BID Magnesium Chloride (Slow-Mag Tab), 64 MG PO BID Metoprolol Tartrate (Lopressor) (Lopressor), 25 MG PO BID Multiple Vitamin (Multivitamins), 1 CAP PO QAM Pantoprazole (Protonix), 40 MG PO QAM Vancomycin HCl in Sodium Chlor (Vancomycin Hydrochloride/ 1.25-0.9 gm/250Ml-%), 1,250 MG IV DAILY Venlafaxine Hcl (Effexor Xr), 37.5 MG PO QAM Scheduled PRN Acetaminophen (Tylenol), 650 MG PO TID PRN for Pain Epinephrine (Epipen), 0.3 MG IM UD PRN for ALLERGIC REACTION Hydromorphone Hcl (Dilaudid), 8 MG PO Q8 PRN for Pain Metoclopramide Hcl (Reglan), 10 MG PO ACHS PRN for Nausea Ondansetron (Ondansetron HCl), 8 MG PO Q8 PRN for Nausea Promethazine Hcl (Phenergan Suppository), 25 MG RI Q4H PRN for Nausea or Vomiting Inpatient Medications Current Inpatient Medications Medications (Trade) Dose Ordered Sig/Cal Route Start Time Stop Time Status Last Admin Dose Admin Glucose (Glucose 40% Gel) 15-30 GRAMS 15 GRAMS... UD PRN PO 02/02/17 03:45 03/04/17 03:44 Glucose (Glucose Chew Tab) 4-8 Tablets 4 Tabl... UD PRN PO 02/02/17 03:45 03/04/17 03:44 Dextrose (Dextrose 50% 50ML Syringe) 25-50ML OF 50% DW IV FOR... UD PRN IV 02/02/17 03:45 03/04/17 03:44 02/08/17 00:16 25 ML Glucagon (Glucagon Inj) 1 mg UD PRN SQ 02/02/17 03:45 03/04/17 03:44 Clindamycin Phosphate 600 mg/ Dextrose 54 ml @ 100 mls/hr Q8H IV 02/02/17 04:00 02/10/17 03:59 02/08/17 13:12 100 MLS/HR Clindamycin Phosphate (Consult) 1 ea UD PRN N/A 02/02/17 04:45 03/04/17 04:44 Aspirin (Ecotrin Tab) 81 mg QAM PO 02/02/17 09:00 03/04/17 08:59 02/08/17 08:26 81 MG Folic Acid (Folvite Tab) 1 mg QAM PO 02/02/17 09:00 03/04/17 08:59 02/08/17 08:27 1 MG Gabapentin (Neurontin Tab) 600 mg TID PO 02/02/17 09:00 03/04/17 08:59 02/07/17 21:17 600 MG Levetiracetam (Keppra Tab) 750 mg BID PO 02/02/17 09:00 03/04/17 08:59 02/08/17 08:27 750 MG Pantoprazole Sodium (Protonix Tab) 40 mg QAM PO 02/02/17 09:00 03/04/17 08:59 02/08/17 08:15 40 MG Venlafaxine HCl (effeXOR EXTENDED REL CAP) 37.5 mg QAM PO 02/02/17 09:00 03/04/17 08:59 02/08/17 08:27 37.5 MG Multivitamins/ Minerals (Multivitamin W/ Minerals Tab) 1 tab QAM PO 02/02/17 09:00 03/04/17 08:59 02/08/17 08:27 1 TAB Ipratropium [place] (Atrovent 0.02% 0.5MG/2.5ML Neb) 0.5 mg Q6R INH 02/02/17 09:00 03/04/17 08:59 02/08/17 07:26 0.5 MG Levalbuterol (Xopenex 1.25MG/ 0.5ML Neb) 1.25 mg Q6R INH 02/02/17 09:00 03/04/17 08:59 02/08/17 07:26 1.25 MG Ipratropium [place] (Atrovent 0.02% 0.5MG/2.5ML Neb) 0.5 mg Q4H PRN INH 02/02/17 04:00 03/04/17 03:59 Levalbuterol (Xopenex 1.25MG/ 0.5ML Neb) 1.25 mg Q4H PRN INH 02/02/17 04:00 03/04/17 03:59 Cefepime HCl (Consult) 1 ea UD PRN N/A 02/02/17 04:45 03/04/17 04:44 Vancomycin HCl (Consult) 1 ea UD PRN N/A 02/02/17 04:45 03/04/17 04:44 Cefepime HCl 2000 mg/Dextrose 112.5 ml @ 225 mls/hr Q8H IV 02/02/17 08:00 02/10/17 07:59 02/08/17 08:10 225 MLS/HR Senna/Docusate Sodium (Senokot S Tab) 1 tab QAM PO 02/02/17 09:00 03/04/17 08:59 02/08/17 08:15 1 TAB Hydromorphone HCl (Dilaudid Tab) 4 mg Q3HWA PRN PO 02/02/17 16:15 02/16/17 03:44 02/06/17 15:56 4 MG Heparin Sodium (Porcine) (Heparin 10 Unit/ ml 5 ml Flush) 5 ml PRN PRN FLUSH 02/03/17 00:30 03/05/17 00:29 02/04/17 17:30 5 ML Ondansetron HCl (Zofran Inj) 4 mg Q6H PRN IV 02/03/17 02:45 03/05/17 02:44 02/05/17 02:05 4 MG Promethazine HCl 12.5 mg/Sodium Chloride 50.5 ml @ 204 mls/hr Q6H PRN IV 02/03/17 02:45 03/05/17 02:44 02/07/17 02:35 204 MLS/HR Lorazepam (Ativan Inj) 0.25 mg Q6H PRN IV 02/03/17 06:00 03/05/17 05:59 02/05/17 22:34 0.25 MG Vancomycin HCl 1500 mg/Sodium Chloride 530 ml @ 200 mls/hr Q24H IV 02/04/17 04:00 03/02/17 23:59 Future hold 02/08/17 04:31 200 MLS/HR Amlodipine Besylate (Norvasc Tab) 10 mg DAILY PO 02/04/17 09:00 03/04/17 08:59 02/08/17 08:26 10 MG Lisinopril (Zestril Tab) 5 mg QAM PO 02/04/17 09:00 03/06/17 08:59 02/08/17 08:28 5 MG Enoxaparin Sodium (Lovenox Inj) 40 mg DAILY@1800 SQ 02/05/17 18:00 03/07/17 17:59 02/07/17 18:55 40 MG Metoprolol Tartrate (Lopressor Tab) 50 mg BID PO 02/05/17 21:00 03/04/17 08:59 02/08/17 08:15 50 MG Acetaminophen 650 mg/Empty Bag 65 ml @ 260 mls/hr Q6H PRN IV 02/07/17 02:30 03/09/17 02:29 02/07/17 02:50 260 MLS/HR Hydromorphone HCl (Dilaudid Inj) 2 mg Q2H PRN IV 02/07/17 15:45 02/21/17 15:44 02/07/17 17:36 1 MG Insulin Aspart (novoLOG ASPART) SLIDING SCALE PCHS OK 02/07/17 17:15 03/09/17 17:14 Insulin Human Regular 250 units/ Sodium Chloride 252.5 ml @ 0 mls/hr DAILY@1130 IV 02/07/17 17:00 03/09/17 16:59 02/07/17 18:41 2.6 MLS/HR Fentanyl Citrate 250 ml @ 20 mls/hr [id number] PRN IV 02/07/17 19:00 02/21/17 18:59 02/08/17 09:31 20 MLS/HR Propofol (Diprivan Iv Emulsion 100ml Vial) 1 dose UD PRN IV 02/07/17 19:00 02/10/17 18:59 02/08/17 12:36 1 DOSE Miscellaneous Information (Consult Glycemic Management Pharmacy) 1 ea UD PRN N/A 02/07/17 08:45 03/09/17 08:44 Enteral Nutritional Formula (Peptamen Intense VHP) 1,000 ml UD PRN NG 02/08/17 11:00 03/10/17 10:59 Physical Exam Date Time Temp Pulse Resp B/P (MAP) Pulse Ox O2 Delivery O2 Flow Rate FiO2 02/08/17 13:00 37.4 72 14 106/64 (76) 99 02/08/17 12:00 100 Mechanical Ventilator 50 02/08/17 12:00 37.6 76 14 138/80 (99) 98 Mechanical Ventilator 50 02/08/17 11:00 37.7 78 17 136/82 (99) 100 02/08/17 10:55 50 02/08/17 10:00 37.6 76 16 133/78 (96) 100 Mechanical Ventilator 50 02/08/17 09:00 37.6 88 15 173/98 (121) 100 02/08/17 08:00 Mechanical Ventilator 50 02/08/17 08:00 37.6 79 14 140/83 (102) 100 Mechanical Ventilator 50 02/08/17 08:00 100 Mechanical Ventilator 50 02/08/17 07:39 83 14 100 Mechanical Ventilator 50 02/08/17 07:37 50 02/08/17 07:00 37.5 83 15 153/91 (110) 99 02/08/17 06:00 37.4 85 16 128/76 (93) 100 Mechanical Ventilator 50 02/08/17 05:05 50 02/08/17 05:00 50 02/08/17 04:00 Mechanical Ventilator 60 02/08/17 04:00 37.4 76 14 124/76 (92) 95 Mechanical Ventilator 60 02/08/17 02:06 60 02/08/17 02:05 73 14 100 Mechanical Ventilator 60 02/08/17 02:00 37.3 97 16 105/66 (79) 97 Mechanical Ventilator 60 02/08/17 00:01 37.4 74 16 97/58 (71) 95 Mechanical Ventilator 60 02/07/17 23:59 95 Mechanical Ventilator 60 02/07/17 23:10 60 02/07/17 22:00 77 15 117/70 (86) 100 Mechanical Ventilator 60 02/07/17 20:19 81 16 100 Mechanical Ventilator 60 02/07/17 20:16 60 02/07/17 20:00 37.5 80 14 112/67 (82) 100 Mechanical Ventilator 60 02/07/17 20:00 100 Mechanical Ventilator 60 02/07/17 18:41 93 17 169/96 (120) 98 Mechanical Ventilator 02/07/17 18:36 98 14 185/108 (133) 98 02/07/17 18:31 102 11 196/111 (139) 97 02/07/17 18:30 60 02/07/17 18:30 103 13 97 02/07/17 18:26 106 9 202/114 (143) 100 02/07/17 18:21 108 23 217/110 (145) 93 02/07/17 18:16 105 7 197/117 (143) 87 02/07/17 18:15 106 1 76 02/07/17 18:01 98 0 184/103 (130) 90 02/07/17 18:00 98 0 90 02/07/17 17:46 98 17 174/100 (124) 74 02/07/17 17:45 98 17 76 02/07/17 17:25 100 95 Oxymask 15.0 02/07/17 17:16 99 21 187/103 (131) 90 02/07/17 17:15 100 21 90 02/07/17 17:01 102 192/107 (135) 02/07/17 17:00 103 02/07/17 16:46 99 21 182/104 (130) 91 02/07/17 16:45 100 19 95 02/07/17 16:31 98 18 167/99 (121) 95 02/07/17 16:30 96 21 90 Oxymask 15.0 02/07/17 16:16 98 18 188/105 (132) 91 02/07/17 16:15 93 Oxymask 15.0 02/07/17 16:15 99 22 91 02/07/17 16:01 97 19 184/103 (130) 94 02/07/17 16:00 97 21 94 02/07/17 15:51 97 20 173/97 (122) 91 02/07/17 15:45 98 22 92 02/07/17 15:40 37.4 98 25 187/106 (133) 91 Oxymask 15.0 02/07/17 15:31 96 23 161/88 (112) 92 02/07/17 15:30 97 27 93 02/07/17 15:28 95 20 168/98 (121) 90 General: The patient is lying in a hospital bed in no apparent distress. Nonverbal on a respirator. HEENT: Pupils equal and reactive to light. Chest: CTA in all [place]. No deformity Heart: RRR without murmurs, S3, S4, thrills, rubs or heaves Abdomen: An operative site is present in the right lower quadrant measuring 1.9 x 9.8 x 3.1 cm. There is no central slough active drainage or odor present from the site following packing and wound VAC removal. No periwound erythema noted. No fluctuance present. Back: There is a wound in the upper lumbar region measuring 5 x 1.2 x 2.5 cm. There is packing in wound VAC removal showed no evidence of any central slough periwound erythema or eschar formation. There is some minimal clear drainage noted at the base. Single suture was visible. Skin: No rashes, papules, vesicles, excoriations Laboratory Results Last 24 Hours Test 02/07/17 16:05 02/07/17 18:42 02/07/17 20:01 02/07/17 21:30 Bedside Glucose 249 mg/dl 197 mg/dl 158 mg/dl Blood Gas Sample Site L Radial Bedside Blood Gas pH (LAB) 7.42 Bedside Blood Gas pCO2 (LAB) 49 mmHg Bedside Blood Gas pO2 (LAB) 91 mmHg Bedside Blood Gas HCO3 (LAB) 32 meq/L Bedside Blood Gas Total CO2 33 mEq/l Bedside Blood Gas Base Excess (LAB) 7.0 meq/L Bedside Blood Gas O2 Saturation 97.0 % Antonino Test Pass Oxygen Delivery Device Ventilator Bedside Oxygen Rate (breaths/min) 14 Blood Gas Minute Ventilation 9.2 Bedside FiO2 60 % Blood Gas Tidal Volume 500 Blood Gas PEEP 5 Test 02/08/17 00:06 02/08/17 00:23 02/08/17 01:33 02/08/17 01:51 Bedside Glucose 84 mg/dl 175 mg/dl 96 mg/dl 91 mg/dl Test 02/08/17 02:19 02/08/17 02:47 02/08/17 03:20 02/08/17 04:15 Bedside Glucose 97 mg/dl 104 mg/dl 112 mg/dl 112 mg/dl Test 02/08/17 05:04 02/08/17 05:26 02/08/17 06:14 02/08/17 08:19 Blood Gas Sample Site R Radial Bedside Blood Gas pH (LAB) 7.46 Bedside Blood Gas pCO2 (LAB) 48 mmHg Bedside Blood Gas pO2 (LAB) 175 mmHg Bedside Blood Gas HCO3 (LAB) 34 meq/L Bedside Blood Gas Total CO2 36 mEq/l Bedside Blood Gas Base Excess (LAB) 11.0 meq/L Bedside Blood Gas O2 Saturation 100.0 % Antonino Test Pass Oxygen Delivery Device Ventilator Bedside Oxygen Rate (breaths/min) 14 Blood Gas Minute Ventilation 7 Bedside FiO2 60 % Blood Gas Tidal Volume 500 Blood Gas PEEP 8 White Blood Count 4.32 K/uL Red Blood Count 2.61 M/uL Hemoglobin 7.6 g/dL Hematocrit 23.1 % Mean Corpuscular Volume 88.5 fL Mean Corpuscular Hemoglobin 29.1 pg Mean Corpuscular Hemoglobin Concent 32.9 g/dl RDW Standard Deviation 46.0 fL RDW Coefficient of Variation 14.1 % Platelet Count 168 K/uL Mean Platelet Volume 9.5 fL Sodium Level 140 mmol/L Potassium Level 4.0 mmol/L Chloride Level 103 mmol/L Carbon Dioxide Level 33 mmol/L Anion Gap 4.0 mmol/L Blood Urea Nitrogen 30 mg/dl Creatinine 1.40 mg/dl Est Creatinine Clear Calc Drug Dose 73.5 ml/min Estimated GFR () 66.9 Estimated GFR (Non- 57.8 BUN/Creatinine Ratio 21.6 Random Glucose 118 mg/dl Calcium Level 7.9 mg/dl Phosphorus Level 3.8 mg/dl Magnesium Level 1.6 mg/dl Total Bilirubin 0.4 mg/dl Aspartate Amino Transf (AST/SGOT) 10 U/L Alanine Aminotransferase (ALT/SGPT) 15 U/L Alkaline Phosphatase 77 U/L Total Protein 5.9 gm/dl Albumin 2.2 gm/dl Globulin 3.7 gm/dl Albumin/Globulin Ratio 0.6 Bedside Glucose 128 mg/dl 132 mg/dl Test 02/08/17 10:16 02/08/17 12:28 Bedside Glucose 145 mg/dl 140 mg/dl Assessment & Plan Assessment: Postoperative wounds to the abdomen and back region Plan:No debridement is indicated today. Packing and wound vacs were removed. The back mobility managed with Adaptic touch at the base followed by iodoform packing dressings to be changed daily or when necessary if soiled. The right lower quadrant abdominal wound managed with a wound VAC black foam 125 mm of negative pressure wound VAC change 3 times weekly. Patient will continue to be monitored during hospital course and reevaluate as needed on the outpatient basis.
--- NOTE | 2017-02-08 15:00 | Progress Note ---
Subjective Date of Service: Feb 08, 2017. Subjective Pt evaluation today including: conversation w/ family, physical exam, chart review, lab review pt remains intubated, sedated on vent. afebrile since yesterday morning. S/p device remove and placement of wound vac. CSF, pump pocket and cath site culture all remain negative. He remains on broad spectrum abx. Problem List Medical Problems: (1) Acute kidney injury Status: Acute (2) Altered mental status Status: Acute (3) Anemia Status: Acute (4) Chronic pain Status: Acute (5) Dehydration Status: Acute (6) Dehydration Status: Acute (7) Dehydration Status: Acute (8) Dehydration Status: Acute (9) Diabetes mellitus with hyperglycemia Status: Acute (10) Failure of outpatient treatment Status: Acute (11) Hypomagnesemia Status: Acute (12) Hypomagnesemia Status: Acute (13) Intractable vomiting Status: Acute (14) Intractable vomiting Status: Acute (15) Intrathecal pump infection Status: Acute (16) Orthostatic hypotension Status: Acute (17) Pneumonia Status: Acute (18) Post-operative complication Status: Acute (19) Sepsis Status: Acute (20) Vomiting Status: Acute (21) Vomiting Status: Acute Objective Vital Signs Date Time Temp Pulse Resp B/P (MAP) Pulse Ox O2 Delivery O2 Flow Rate FiO2 02/08/17 14:10 72 14 100 Mechanical Ventilator 50 02/08/17 14:02 50 02/08/17 14:00 37.2 72 15 120/72 (88) 100 Mechanical Ventilator 50 02/08/17 13:00 37.4 72 14 106/64 (76) 99 02/08/17 12:00 100 Mechanical Ventilator 50 02/08/17 12:00 37.6 76 14 138/80 (99) 98 Mechanical Ventilator 50 02/08/17 11:00 37.7 78 17 136/82 (99) 100 02/08/17 10:55 50 02/08/17 10:00 37.6 76 16 133/78 (96) 100 Mechanical Ventilator 50 02/08/17 09:00 37.6 88 15 173/98 (121) 100 02/08/17 08:00 Mechanical Ventilator 50 02/08/17 08:00 37.6 79 14 140/83 (102) 100 Mechanical Ventilator 50 02/08/17 08:00 100 Mechanical Ventilator 50 02/08/17 07:39 83 14 100 Mechanical Ventilator 50 02/08/17 07:37 50 02/08/17 07:00 37.5 83 15 153/91 (110) 99 02/08/17 06:00 37.4 85 16 128/76 (93) 100 Mechanical Ventilator 50 02/08/17 05:05 50 02/08/17 05:00 50 02/08/17 04:00 Mechanical Ventilator 60 02/08/17 04:00 37.4 76 14 124/76 (92) 95 Mechanical Ventilator 60 02/08/17 02:06 60 02/08/17 02:05 73 14 100 Mechanical Ventilator 60 02/08/17 02:00 37.3 97 16 105/66 (79) 97 Mechanical Ventilator 60 02/08/17 00:01 37.4 74 16 97/58 (71) 95 Mechanical Ventilator 60 02/07/17 23:59 95 Mechanical Ventilator 60 02/07/17 23:10 60 02/07/17 22:00 77 15 117/70 (86) 100 Mechanical Ventilator 60 02/07/17 20:19 81 16 100 Mechanical Ventilator 60 02/07/17 20:16 60 02/07/17 20:00 37.5 80 14 112/67 (82) 100 Mechanical Ventilator 60 02/07/17 20:00 100 Mechanical Ventilator 60 02/07/17 18:41 93 17 169/96 (120) 98 Mechanical Ventilator 02/07/17 18:36 98 14 185/108 (133) 98 02/07/17 18:31 102 11 196/111 (139) 97 02/07/17 18:30 60 02/07/17 18:30 103 13 97 02/07/17 18:26 106 9 202/114 (143) 100 02/07/17 18:21 108 23 217/110 (145) 93 02/07/17 18:16 105 7 197/117 (143) 87 02/07/17 18:15 106 1 76 02/07/17 18:01 98 0 184/103 (130) 90 02/07/17 18:00 98 0 90 02/07/17 17:46 98 17 174/100 (124) 74 02/07/17 17:45 98 17 76 02/07/17 17:25 100 95 Oxymask 15.0 02/07/17 17:16 99 21 187/103 (131) 90 02/07/17 17:15 100 21 90 02/07/17 17:01 102 192/107 (135) 02/07/17 17:00 103 02/07/17 16:46 99 21 182/104 (130) 91 02/07/17 16:45 100 19 95 02/07/17 16:31 98 18 167/99 (121) 95 02/07/17 16:30 96 21 90 Oxymask 15.0 02/07/17 16:16 98 18 188/105 (132) 91 02/07/17 16:15 93 Oxymask 15.0 02/07/17 16:15 99 22 91 02/07/17 16:01 97 19 184/103 (130) 94 02/07/17 16:00 97 21 94 02/07/17 15:51 97 20 173/97 (122) 91 02/07/17 15:45 98 22 92 02/07/17 15:40 37.4 98 25 187/106 (133) 91 Oxymask 15.0 02/07/17 15:31 96 23 161/88 (112) 92 02/07/17 15:30 97 27 93 02/07/17 15:28 95 20 168/98 (121) 90 Physical Exam General Appearance: + pertinent finding (sedated on vent) Respiratory/Chest: lungs clear, normal breath sounds Cardiovascular: regular rate, rhythm, no edema Abdomen: soft Extremities: non-tender, no pedal edema Neurologic/Psychiatric: + pertinent finding (sedated on vent) Skin: normal color Comments: abd wound with vac in place. no surrounding erythema or induration Laboratory Results Item Value Date Time Gram Stain - Final Resulted 02/07/17 1345 Drainage-Deep Lumbar Gram Stain - Final Resulted 02/07/17 1345 Drainage-Deep Abdomen Gram Stain - Final Resulted 02/07/17 1015 Cerebral Spinal Fluid Gram Stain - Final Resulted 02/05/17 0826 Drainage-Deep Lumbar Gram Stain - Final Complete 02/03/17 1035 Incision Site Back Blood Culture - Final Complete 02/01/17 2221 Blood NO GROWTH Blood Culture - Final Complete 02/01/17 2150 Blood NO GROWTH Last 24 Hours Test 02/07/17 16:05 02/07/17 18:42 02/07/17 20:01 02/07/17 21:30 Bedside Glucose 249 mg/dl 197 mg/dl 158 mg/dl Blood Gas Sample Site L Radial Bedside Blood Gas pH (LAB) 7.42 Bedside Blood Gas pCO2 (LAB) 49 mmHg Bedside Blood Gas pO2 (LAB) 91 mmHg Bedside Blood Gas HCO3 (LAB) 32 meq/L Bedside Blood Gas Total CO2 33 mEq/l Bedside Blood Gas Base Excess (LAB) 7.0 meq/L Bedside Blood Gas O2 Saturation 97.0 % Antonino Test Pass Oxygen Delivery Device Ventilator Bedside Oxygen Rate (breaths/min) 14 Blood Gas Minute Ventilation 9.2 Bedside FiO2 60 % Blood Gas Tidal Volume 500 Blood Gas PEEP 5 Test 02/08/17 00:06 02/08/17 00:23 02/08/17 01:33 02/08/17 01:51 Bedside Glucose 84 mg/dl 175 mg/dl 96 mg/dl 91 mg/dl Test 02/08/17 02:19 02/08/17 02:47 02/08/17 03:20 02/08/17 04:15 Bedside Glucose 97 mg/dl 104 mg/dl 112 mg/dl 112 mg/dl Test 02/08/17 05:04 02/08/17 05:26 02/08/17 06:14 02/08/17 08:19 Blood Gas Sample Site R Radial Bedside Blood Gas pH (LAB) 7.46 Bedside Blood Gas pCO2 (LAB) 48 mmHg Bedside Blood Gas pO2 (LAB) 175 mmHg Bedside Blood Gas HCO3 (LAB) 34 meq/L Bedside Blood Gas Total CO2 36 mEq/l Bedside Blood Gas Base Excess (LAB) 11.0 meq/L Bedside Blood Gas O2 Saturation 100.0 % Antonino Test Pass Oxygen Delivery Device Ventilator Bedside Oxygen Rate (breaths/min) 14 Blood Gas Minute Ventilation 7 Bedside FiO2 60 % Blood Gas Tidal Volume 500 Blood Gas PEEP 8 White Blood Count 4.32 K/uL Red Blood Count 2.61 M/uL Hemoglobin 7.6 g/dL Hematocrit 23.1 % Mean Corpuscular Volume 88.5 fL Mean Corpuscular Hemoglobin 29.1 pg Mean Corpuscular Hemoglobin Concent 32.9 g/dl RDW Standard Deviation 46.0 fL RDW Coefficient of Variation 14.1 % Platelet Count 168 K/uL Mean Platelet Volume 9.5 fL Sodium Level 140 mmol/L Potassium Level 4.0 mmol/L Chloride Level 103 mmol/L Carbon Dioxide Level 33 mmol/L Anion Gap 4.0 mmol/L Blood Urea Nitrogen 30 mg/dl Creatinine 1.40 mg/dl Est Creatinine Clear Calc Drug Dose 73.5 ml/min Estimated GFR () 66.9 Estimated GFR (Non- 57.8 BUN/Creatinine Ratio 21.6 Random Glucose 118 mg/dl Calcium Level 7.9 mg/dl Phosphorus Level 3.8 mg/dl Magnesium Level 1.6 mg/dl Total Bilirubin 0.4 mg/dl Aspartate Amino Transf (AST/SGOT) 10 U/L Alanine Aminotransferase (ALT/SGPT) 15 U/L Alkaline Phosphatase 77 U/L Total Protein 5.9 gm/dl Albumin 2.2 gm/dl Globulin 3.7 gm/dl Albumin/Globulin Ratio 0.6 Bedside Glucose 128 mg/dl 132 mg/dl Test 02/08/17 10:16 02/08/17 12:28 Bedside Glucose 145 mg/dl 140 mg/dl Assessment and Plan (1) Infection of intrathecal pump Assessment & Plan: will continue current abx and follow OR cultures
[2017-02-08] MEDS: PEPTAMEN INTENSE VHP 1000ML BAG NG PRN (15:35)
--- NOTE | 2017-02-08 15:46 | Progress Note ---
Internal Med Progress Note Date of Service: Feb 08, 2017. Provider Documentation: SUBJECTIVE: The patient was seen and Examined S/P Drainage of fluid collection from the back Very Drowsy this morning with SOB and low saturation of 70s Acute Change in mental status Transferred to ICU after starting initial management OBJECTIVE: Vital Signs-as noted below Exam: General-Severe SOB at rest Agitated at times Eyes-normal ENT-normal Neck-Supple Lungs-decreased breath sound bilaterally With widespread crackles Heart-Regular,no murmur appreciated Abdomen-Benign,no masses,bowel sound present Extremities-Trace edema bilaterally Neuro-AA Restless but not aggressive Generally weak and lethargic Lab data as noted below. 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 and severe diabetic gastroparesis s/p gastric pacemaker; chronic pain syndrome on long-term opioids s/p intrathecal pump, HTN, H/O of seizure disorder - recently admitted for infected and leaking intrathecal pump with surgical repair and on long-term antibiotics - presents secondary to worsening back pain and worsening nausea/vomiting Acute Respiratory Failure :now on Vent Acute SOB this morning:Differential includes-Fluid overload,CHF,Pneumonia- Aspiration ,Narcotic induced ,exacerbation associated with lung cancer or even ARDS With change in mental status and decreased saturation of 70s Received 1 dose of Narcan,60mg IV Lasix ,CXR and blood tests and started on NRB ABG ordered and the patient is transferred to ICU for continued care Has been on IV Vanco,Cefepime and Clindamycin ID,Ortho and Pain therapist are on board Anemia Likely secondary to Ongoing infection Will transfuse 2 units of PRBC S/P Intubation 02/07/17 Breathing got worse following surgery :Removal of Intrathecal Pain Pump and catheter; Application of Wound Vac on 02/07/17 Remains sedated on VENT Management as per Client Services Account Manager Persistent Intrathecal Pump Leakage and Infection-Removed Left Paraspinal Abscess Was discharged on 01/31 - during that admission, he had an I&D and stopped CSF leakage He had a PICC line put in and was discharged on 6 weeks of Vancomycin Abdominal/Pelvis CT suggests a persistent abscess around 4.2cm Patient is now on Cefepime, Clindamycin, and Vancomycin Appreciate ID input Appreciate Pain management and Spine Surgery input S/P I&D 02/05/17::No CSF leakage ,Old collection drained S/P Removal of Intrathecal Pain Pump and catheter; Application of Wound Vac on 02/07/17 CSF fluid showed increased WCC ~2000,Gm stain is negative Consulted Wound Care-appreciate input ID following Continue Current antibiotic Bilateral Lower Extremity Swelling Possibly related to low protein Added boost TID-Nutrition consulted US negative for any clot HTN Has been on BB and Amlodipine and Lisinopril Still on the upper side Increase BB to 50mg BID Possible Aspiration Pneumonia Patient has had issues with nausea/vomiting He presented with some shortness of breath issues CXR suggests right perihilar and medial right lung base opacities suggesting atelectasis or pneumonia Added Clindamycin for anaerobic coverage Clinically better bur acutely SOB this morning Anasarca Likely from low protein Received one dose of IV Lasix Add boost glucose control Persistent Nausea/Vomiting He has a gastric pacemaker in, unfortunately, he still has persistent n/v Received one dose of Emend Continue Zofran PRN Chronic Pain on Long-Term Opioids Would appreciate pain management input Currently on PO hydromorphone 4mg q3hrs PRN Will try to avoid IV narcotics Asking for more pain medicine -appreciate Pain therapist input Removal of Intrathecal Pain Pump and catheter; Application of Wound Vac on Insulin Dependent DM2 Currently on Lantus 12 units BID Insulin sliding scale Monitor blood sugars - he presented with hypoglycemia; now slightly hyperglycemic, we will monitor Has been started on IN infusion Hx. of Seizure Disorder continue Keppra DVT ppx Will start Lovenox 40 mg Daily starting at 6 PM this Evening FULL CODE Transferred to ICU Vital Signs: Date Time Temp Pulse Resp B/P (MAP) Pulse Ox O2 Delivery O2 Flow Rate FiO2 02/08/17 14:10 72 14 100 Mechanical Ventilator 50 02/08/17 14:02 50 02/08/17 14:00 37.2 72 15 120/72 (88) 100 Mechanical Ventilator 50 02/08/17 13:00 37.4 72 14 106/64 (76) 99 02/08/17 12:00 100 Mechanical Ventilator 50 02/08/17 12:00 37.6 76 14 138/80 (99) 98 Mechanical Ventilator 50 02/08/17 11:00 37.7 78 17 136/82 (99) 100 02/08/17 10:55 50 02/08/17 10:00 37.6 76 16 133/78 (96) 100 Mechanical Ventilator 50 02/08/17 09:00 37.6 88 15 173/98 (121) 100 02/08/17 08:00 Mechanical Ventilator 50 02/08/17 08:00 37.6 79 14 140/83 (102) 100 Mechanical Ventilator 50 02/08/17 08:00 100 Mechanical Ventilator 50 02/08/17 07:39 83 14 100 Mechanical Ventilator 50 02/08/17 07:37 50 02/08/17 07:00 37.5 83 15 153/91 (110) 99 02/08/17 06:00 37.4 85 16 128/76 (93) 100 Mechanical Ventilator 50 02/08/17 05:05 50 02/08/17 05:00 50 02/08/17 04:00 Mechanical Ventilator 60 02/08/17 04:00 37.4 76 14 124/76 (92) 95 Mechanical Ventilator 60 02/08/17 02:06 60 02/08/17 02:05 73 14 100 Mechanical Ventilator 60 02/08/17 02:00 37.3 97 16 105/66 (79) 97 Mechanical Ventilator 60 02/08/17 00:01 37.4 74 16 97/58 (71) 95 Mechanical Ventilator 60 02/07/17 23:59 95 Mechanical Ventilator 60 02/07/17 23:10 60 02/07/17 22:00 77 15 117/70 (86) 100 Mechanical Ventilator 60 02/07/17 20:19 81 16 100 Mechanical Ventilator 60 02/07/17 20:16 60 02/07/17 20:00 37.5 80 14 112/67 (82) 100 Mechanical Ventilator 60 02/07/17 20:00 100 Mechanical Ventilator 60 02/07/17 18:41 93 17 169/96 (120) 98 Mechanical Ventilator 02/07/17 18:36 98 14 185/108 (133) 98 02/07/17 18:31 102 11 196/111 (139) 97 02/07/17 18:30 60 02/07/17 18:30 103 13 97 02/07/17 18:26 106 9 202/114 (143) 100 02/07/17 18:21 108 23 217/110 (145) 93 02/07/17 18:16 105 7 197/117 (143) 87 10/5/17 18:15 106 1 76 02/07/17 18:01 98 0 184/103 (130) 90 02/07/17 18:00 98 0 90 02/07/17 17:46 98 17 174/100 (124) 74 02/07/17 17:45 98 17 76 02/07/17 17:25 100 95 Oxymask 15.0 02/07/17 17:16 99 21 187/103 (131) 90 02/07/17 17:15 100 21 90 02/07/17 17:01 102 192/107 (135) 02/07/17 17:00 103 02/07/17 16:46 99 21 182/104 (130) 91 02/07/17 16:45 100 19 95 02/07/17 16:31 98 18 167/99 (121) 95 02/07/17 16:30 96 21 90 Oxymask 15.0 02/07/17 16:16 98 18 188/105 (132) 91 02/07/17 16:15 93 Oxymask 15.0 02/07/17 16:15 99 22 91 02/07/17 16:01 97 19 184/103 (130) 94 02/07/17 16:00 97 21 94 02/07/17 15:51 97 20 173/97 (122) 91 02/07/17 15:45 98 22 92 02/07/17 15:40 37.4 98 25 187/106 (133) 91 Oxymask 15.0 Lab Results: Results Past 24 Hours Test 02/07/17 16:05 02/07/17 18:42 02/07/17 20:01 02/07/17 21:30 Range/Units Bedside Glucose 249 197 158 70-99 mg/dl Blood Gas Sample Site L Radial Bedside Blood Gas pH (LAB) 7.42 7.35-7.45 Bedside Blood Gas pCO2 (LAB) 49 35-46 mmHg Bedside Blood Gas pO2 (LAB) 91 80-95 mmHg Bedside Blood Gas HCO3 (LAB) 32 19-24 meq/L Bedside Blood Gas Total CO2 33 24-31 mEq/l Bedside Blood Gas Base Excess (LAB) 7.0 -9-1.8 meq/L Bedside Blood Gas O2 Saturation 97.0 90-95 % Antonino Test Pass Oxygen Delivery Device Ventilator Bedside Oxygen Rate (breaths/min) 14 Blood Gas Minute Ventilation 9.2 Bedside FiO2 60 % Blood Gas Tidal Volume 500 Blood Gas PEEP 5 Test 02/08/17 00:06 02/08/17 00:23 02/08/17 01:33 02/08/17 01:51 Range/Units Bedside Glucose 84 175 96 91 70-99 mg/dl Test 02/08/17 02:19 02/08/17 02:47 02/08/17 03:20 02/08/17 04:15 Range/Units Bedside Glucose 97 104 112 112 70-99 mg/dl Test 02/08/17 05:04 02/08/17 05:26 02/08/17 06:14 02/08/17 08:19 Range/Units Blood Gas Sample Site R Radial Bedside Blood Gas pH (LAB) 7.46 7.35-7.45 Bedside Blood Gas pCO2 (LAB) 48 35-46 mmHg Bedside Blood Gas pO2 (LAB) 175 80-95 mmHg Bedside Blood Gas HCO3 (LAB) 34 19-24 meq/L Bedside Blood Gas Total CO2 36 24-31 mEq/l Bedside Blood Gas Base Excess (LAB) 11.0 -9-1.8 meq/L Bedside Blood Gas O2 Saturation 100.0 90-95 % Antonino Test Pass Oxygen Delivery Device Ventilator Bedside Oxygen Rate (breaths/min) 14 Blood Gas Minute Ventilation 7 Bedside FiO2 60 % Blood Gas Tidal Volume 500 Blood Gas PEEP 8 White Blood Count 4.32 4.8-10.8 K/uL Red Blood Count 2.61 4.7-6.1 M/uL Hemoglobin 7.6 14.0-18.0 g/dL Hematocrit 23.1 42-52 % Mean Corpuscular Volume 88.5 80-100 fL Mean Corpuscular Hemoglobin 29.1 25-34 pg Mean Corpuscular Hemoglobin Concent 32.9 32-36 g/dl RDW Standard Deviation 46.0 36.4-46.3 fL RDW Coefficient of Variation 14.1 11.5-14.5 % Platelet Count 168 130-400 K/uL Mean Platelet Volume 9.5 7.4-10.4 fL Sodium Level 140 136-145 mmol/L Potassium Level 4.0 3.5-5.1 mmol/L Chloride Level 103 98-107 mmol/L Carbon Dioxide Level 33 21-32 mmol/L Anion Gap 4.0 3-11 mmol/L Blood Urea Nitrogen 30 7-18 mg/dl Creatinine 1.40 0.60-1.40 mg/dl Est Creatinine Clear Calc Drug Dose 73.5 ml/min Estimated GFR () 66.9 Estimated GFR (Non- 57.8 BUN/Creatinine Ratio 21.6 10-20 Random Glucose 118 70-99 mg/dl Calcium Level 7.9 8.5-10.1 mg/dl Phosphorus Level 3.8 2.5-4.9 mg/dl Magnesium Level 1.6 1.8-2.4 mg/dl Total Bilirubin 0.4 0.2-1 mg/dl Aspartate Amino Transf (AST/SGOT) 10 15-37 U/L Alanine Aminotransferase (ALT/SGPT) 15 12-78 U/L Alkaline Phosphatase 77 45-117 U/L Total Protein 5.9 6.4-8.2 gm/dl Albumin 2.2 3.4-5.0 gm/dl Globulin 3.7 2.5-4.0 gm/dl Albumin/Globulin Ratio 0.6 0.9-2 Bedside Glucose 128 132 70-99 mg/dl Test 02/08/17 10:16 02/08/17 12:28 Range/Units Bedside Glucose 145 140 70-99 mg/dl
--- NOTE | 2017-02-08 16:56 | Pain Management Progress Note ---
Pain Management Progress Note Date of Service Feb 08, 2017. Gabriele Aguilar remains intubated and sedated since last night. He is afebrile and demonstrates spontaneous movement of all 4 extremities. CSF cultures and deep wound culture from the abdominal and lumbar spine will remain negative. Objective Vital Signs: Last Vital Signs Documentation Date Time Temp Pulse Resp B/P (MAP) Pulse Ox O2 Delivery O2 Flow Rate FiO2 02/08/17 16:00 37.2 80 21 119/62 (81) 96 Mechanical Ventilator 50 02/07/17 17:25 15.0 Physical Exam: Both lumbar spine and abdominal wound were open. Minimal CSF drainage is noted from the back wound. No purulence noted. Laboratory Laboratory Findings 02/08/17 05:26 Assessment 1. with elevated intrathecal pump and catheter system. 2. Mental status changes with WBC and CSF. 3. Aspiration pneumonia. 4. Diabetic neuropathic pain and gastroparesis with intractable nausea and vomiting. Recommendations 1. Continue wound care per wound clinic staff. His continue suction over the lumbar spine wound to minimize CSF leakage.
[2017-02-08] MEDS ORDERED: INSULIN REGULAR 250 UNITS in SODIUM CHLORIDE 0.9% 250ML 250 ML IV SCH (17:00)
[2017-02-08] MEDS: ENOXAPARIN 40 MG/0.4 ML SYR SQ SCH (17:06)
--- NOTE | 2017-02-08 19:08 | Critical Care Progress Note ---
Critical Care Progress Note Date of Service Feb 08, 2017. Attending Dr. Marah Suazo I personally examined this patient, reviewed his clinical and laboratory data, interpreted this x-ray, CT scan and formulated further plan of care. In summary, patient is a 51 year old man with complicated history including chronic back pain, intrathecal pain pump infected with MSSA, suspected CSF infection, lumbar CSF leak, gastroparesis, daily vomiting, aspiration pneumonitis. Patient was transferred critically ill to the surgical intensive care unit on 02/07/2017 with acute change in mentation thought to be secondary to sepsis. Uneventful night. Patient is still lethargic, complaints of back pain, denies having any chest pain or abdominal pain. Objective General Appearance: Obtunded, intermittently follows commands, moves all his extremities. Head: normocephalic, atraumatic Eyes: PERRLA, no discharge, EOMI, 2 mm in size ENT: normal ear exam, normal nasal exam, normal mouth exam Neck: normal range of motion, no tenderness, trachea midline Respiratory: Bilateral rhonchi at bases Cardiovasular: regular rate/rhythm, normal S1S2, normal peripheral pulses Abdomen: non tender, no rebound, no masses, right lower quadrant incision with pain pump in situ, incision over lumbar spine covered with dressing Back: Lumbar incision with soaked dressing. Dressing removed- there was granulation tissue, no obvious CSF leak or pus. Upper Extremities: no edema, no deformity Lower Extremities: no edema, no deformity Neuro: moves spontaneously all 4 extremitie Assessment & Plan 1. Sepsis. Differential diagnosis includes aspiration pneumonia, intrathecal pump related CSF infection, PICC line infection. Pain pump intrathecal port was aspirated with CSF revealing 1800 WBCs in the setting of treatment with antibiotics. Decision was made to proceed with discontinuation of intrathecal pump. CSF and blood cultures are pending. Should blood cultures come back positive will discontinue PICC line in place central line. Meanwhile, we'll continue with vancomycin for 6 weeks, cefepime and clindamycin while awaiting for cultures. 2. Acute respiratory failure. Patient is lethargic, barely able to protect his airway. He is getting more hypoxic so we'll proceed with intubation and full mechanical ventilator support. 3. Hypertension. We will use labetalol and sedation to keep SBP below 160. Echocardiography revealed normal biventricular systolic function, left ventricular hypertrophy, moderate MR. No signs of cardiac ischemia. 4. Gastroparesis. Gastric stimulator in situ. Episode of vomitus. 5. Renal insufficiency. We'll monitor urinary output, replace electrolytes. 6. Metabolic encephalopathy, likely related to CSF infection. Expect improvement with treatment of sepsis. CT scan was obtained and did not reveal any metastatic lesions. 7. Moderate anemia, no signs of bleeding. 8. Hyperglycemia, will adjust insulin coverage. 9. Pain management. We will use fentanyl when necessary after discontinuation of pump. I spent total 35 minutes of critical care time evaluating and managing this patient. Consults & Procedures Consultants: Anesthesia Critical care Infectious disease Procedures: Discontinuation of intrathecal pump Data Medications: Current Inpatient Medications Medications (Trade) Dose Ordered Sig/Cal Route Start Time Stop Time Status Last Admin Dose Admin Glucose (Glucose 40% Gel) 15-30 GRAMS 15 GRAMS... UD PRN PO 02/02/17 03:45 03/04/17 03:44 Glucose (Glucose Chew Tab) 4-8 Tablets 4 Tabl... UD PRN PO 02/02/17 03:45 03/04/17 03:44 Dextrose (Dextrose 50% 50ML Syringe) 25-50ML OF 50% DW IV FOR... UD PRN IV 02/02/17 03:45 03/04/17 03:44 02/08/17 00:16 25 ML Glucagon (Glucagon Inj) 1 mg UD PRN SQ 02/02/17 03:45 03/04/17 03:44 Clindamycin Phosphate 600 mg/ Dextrose 54 ml @ 100 mls/hr Q8H IV 02/02/17 04:00 02/10/17 03:59 02/08/17 13:12 100 MLS/HR Clindamycin Phosphate (Consult) 1 ea UD PRN N/A 02/02/17 04:45 03/04/17 04:44 Aspirin (Ecotrin Tab) 81 mg QAM PO 02/02/17 09:00 03/04/17 08:59 02/08/17 08:26 81 MG Folic Acid (Folvite Tab) 1 mg QAM PO 02/02/17 09:00 03/04/17 08:59 02/08/17 08:27 1 MG Gabapentin (Neurontin Tab) 600 mg TID PO 02/02/17 09:00 03/04/17 08:59 02/08/17 14:46 600 MG Levetiracetam (Keppra Tab) 750 mg BID PO 02/02/17 09:00 03/04/17 08:59 02/08/17 08:27 750 MG Pantoprazole Sodium (Protonix Tab) 40 mg QAM PO 02/02/17 09:00 03/04/17 08:59 02/08/17 08:15 40 MG Venlafaxine HCl (effeXOR EXTENDED REL CAP) 37.5 mg QAM PO 02/02/17 09:00 03/04/17 08:59 02/08/17 08:27 37.5 MG Multivitamins/ Minerals (Multivitamin W/ Minerals Tab) 1 tab QAM PO 02/02/17 09:00 03/04/17 08:59 02/08/17 08:27 1 TAB Ipratropium [place] (Atrovent 0.02% 0.5MG/2.5ML Neb) 0.5 mg Q6R INH 02/02/17 09:00 03/04/17 08:59 02/08/17 14:09 0.5 MG Levalbuterol (Xopenex 1.25MG/ 0.5ML Neb) 1.25 mg Q6R INH 02/02/17 09:00 03/04/17 08:59 02/08/17 14:09 1.25 MG Ipratropium [place] (Atrovent 0.02% 0.5MG/2.5ML Neb) 0.5 mg Q4H PRN INH 02/02/17 04:00 03/04/17 03:59 Levalbuterol (Xopenex 1.25MG/ 0.5ML Neb) 1.25 mg Q4H PRN INH 02/02/17 04:00 03/04/17 03:59 Cefepime HCl (Consult) 1 ea UD PRN N/A 02/02/17 04:45 03/04/17 04:44 Vancomycin HCl (Consult) 1 ea UD PRN N/A 02/02/17 04:45 03/04/17 04:44 Cefepime HCl 2000 mg/Dextrose 112.5 ml @ 225 mls/hr Q8H IV 02/02/17 08:00 02/10/17 07:59 02/08/17 15:39 225 MLS/HR Senna/Docusate Sodium (Senokot S Tab) 1 tab QAM PO 02/02/17 09:00 03/04/17 08:59 02/08/17 08:15 1 TAB Hydromorphone HCl (Dilaudid Tab) 4 mg Q3HWA PRN PO 02/02/17 16:15 02/16/17 03:44 02/06/17 15:56 4 MG Heparin Sodium (Porcine) (Heparin 10 Unit/ ml 5 ml Flush) 5 ml PRN PRN FLUSH 02/03/17 00:30 03/05/17 00:29 02/04/17 17:30 5 ML Ondansetron HCl (Zofran Inj) 4 mg Q6H PRN IV 02/03/17 02:45 03/05/17 02:44 02/05/17 02:05 4 MG Promethazine HCl 12.5 mg/Sodium Chloride 50.5 ml @ 204 mls/hr Q6H PRN IV 02/03/17 02:45 03/05/17 02:44 02/07/17 02:35 204 MLS/HR Lorazepam (Ativan Inj) 0.25 mg Q6H PRN IV 02/03/17 06:00 03/05/17 05:59 02/05/17 22:34 0.25 MG Vancomycin HCl 1500 mg/Sodium Chloride 530 ml @ 200 mls/hr Q24H IV 02/04/17 04:00 03/02/17 23:59 Future hold 02/08/17 04:31 200 MLS/HR Amlodipine Besylate (Norvasc Tab) 10 mg DAILY PO 02/04/17 09:00 03/04/17 08:59 02/08/17 08:26 10 MG Lisinopril (Zestril Tab) 5 mg QAM PO 02/04/17 09:00 03/06/17 08:59 02/08/17 08:28 5 MG Enoxaparin Sodium (Lovenox Inj) 40 mg DAILY@1800 SQ 02/05/17 18:00 03/07/17 17:59 02/08/17 17:06 40 MG Metoprolol Tartrate (Lopressor Tab) 50 mg BID PO 02/05/17 21:00 03/04/17 08:59 02/08/17 08:15 50 MG Acetaminophen 650 mg/Empty Bag 65 ml @ 260 mls/hr Q6H PRN IV 02/07/17 02:30 03/09/17 02:29 02/07/17 02:50 260 MLS/HR Hydromorphone HCl (Dilaudid Inj) 2 mg Q2H PRN IV 02/07/17 15:45 02/21/17 15:44 02/07/17 17:36 1 MG Insulin Aspart (novoLOG ASPART) SLIDING SCALE PCHS SC 02/07/17 17:15 03/09/17 17:14 Insulin Human Regular 250 units/ Sodium Chloride 252.5 ml @ 0 mls/hr DAILY@1130 IV 02/07/17 17:00 03/09/17 16:59 02/08/17 13:32 1 MLS/HR Fentanyl Citrate 250 ml @ 20 mls/hr [id number] PRN IV 02/07/17 19:00 02/21/17 18:59 02/08/17 09:31 20 MLS/HR Propofol (Diprivan Iv Emulsion 100ml Vial) 1 dose UD PRN IV 02/07/17 19:00 02/10/17 18:59 02/08/17 18:28 1 DOSE Miscellaneous Information (Consult Glycemic Management Pharmacy) 1 ea UD PRN N/A 02/07/17 08:45 03/09/17 08:44 Enteral Nutritional Formula (Peptamen Intense VHP) 1,000 ml UD PRN NG 02/08/17 11:00 03/10/17 10:59 02/08/17 15:35 1,000 ML Ipratropium [place] (Atrovent Hfa Inhaler) 4 puffs Q6R INH 02/08/17 21:00 03/10/17 20:59 UNV Levalbuterol (Xopenex Hfa Inhaler) 4 puffs Q6R INH 02/08/17 21:00 03/10/17 20:59 UNV I & O: 24-Hour Column 02/09/17 08:00 Intake Total 1184 ml Output Total 1290 ml Balance -106 ml Vital Signs: Date Time Temp Pulse Resp B/P (MAP) Pulse Ox O2 Delivery O2 Flow Rate FiO2 02/08/17 18:00 37.2 69 21 106/66 (79) 96 Mechanical Ventilator 50 02/08/17 17:05 50 02/08/17 16:00 37.2 80 21 119/62 (81) 96 Mechanical Ventilator 50 02/08/17 16:00 Mechanical Ventilator 50 02/08/17 14:10 72 14 100 Mechanical Ventilator 50 02/08/17 14:02 50 02/08/17 14:00 37.2 72 15 120/72 (88) 100 Mechanical Ventilator 50 02/08/17 13:00 37.4 72 14 106/64 (76) 99 02/08/17 12:00 100 Mechanical Ventilator 50 02/08/17 12:00 37.6 76 14 138/80 (99) 98 Mechanical Ventilator 50 02/08/17 11:00 37.7 78 17 136/82 (99) 100 02/08/17 10:55 50 02/08/17 10:00 37.6 76 16 133/78 (96) 100 Mechanical Ventilator 50 02/08/17 09:00 37.6 88 15 173/98 (121) 100 02/08/17 08:00 Mechanical Ventilator 50 02/08/17 08:00 37.6 79 14 140/83 (102) 100 Mechanical Ventilator 50 02/08/17 08:00 100 Mechanical Ventilator 50 02/08/17 07:39 83 14 100 Mechanical Ventilator 50 02/08/17 07:37 50 02/08/17 07:00 37.5 83 15 153/91 (110) 99 02/08/17 06:00 37.4 85 16 128/76 (93) 100 Mechanical Ventilator 50 02/08/17 05:05 50 02/08/17 05:00 50 02/08/17 04:00 Mechanical Ventilator 60 02/08/17 04:00 37.4 76 14 124/76 (92) 95 Mechanical Ventilator 60 02/08/17 02:06 60 02/08/17 02:05 73 14 100 Mechanical Ventilator 60 02/08/17 02:00 37.3 97 16 105/66 (79) 97 Mechanical Ventilator 60 02/08/17 00:01 37.4 74 16 97/58 (71) 95 Mechanical Ventilator 60 02/07/17 23:59 95 Mechanical Ventilator 60 02/07/17 23:10 60 02/07/17 22:00 77 15 117/70 (86) 100 Mechanical Ventilator 60 02/07/17 20:19 81 16 100 Mechanical Ventilator 60 02/07/17 20:16 60 02/07/17 20:00 37.5 80 14 112/67 (82) 100 Mechanical Ventilator 60 02/07/17 20:00 100 Mechanical Ventilator 60 Laboratory Results: Last 24 Hours Test 02/07/17 20:01 02/07/17 21:30 02/08/17 00:06 02/08/17 00:23 Bedside Glucose 197 mg/dl 158 mg/dl 84 mg/dl 175 mg/dl Test 02/08/17 01:33 02/08/17 01:51 02/08/17 02:19 02/08/17 02:47 Bedside Glucose 96 mg/dl 91 mg/dl 97 mg/dl 104 mg/dl Test 02/08/17 03:20 02/08/17 04:15 02/08/17 05:04 02/08/17 05:26 Bedside Glucose 112 mg/dl 112 mg/dl Blood Gas Sample Site R Radial Bedside Blood Gas pH (LAB) 7.46 Bedside Blood Gas pCO2 (LAB) 48 mmHg Bedside Blood Gas pO2 (LAB) 175 mmHg Bedside Blood Gas HCO3 (LAB) 34 meq/L Bedside Blood Gas Total CO2 36 mEq/l Bedside Blood Gas Base Excess (LAB) 11.0 meq/L Bedside Blood Gas O2 Saturation 100.0 % Antonino Test Pass Oxygen Delivery Device Ventilator Bedside Oxygen Rate (breaths/min) 14 Blood Gas Minute Ventilation 7 Bedside FiO2 60 % Blood Gas Tidal Volume 500 Blood Gas PEEP 8 White Blood Count 4.32 K/uL Red Blood Count 2.61 M/uL Hemoglobin 7.6 g/dL Hematocrit 23.1 % Mean Corpuscular Volume 88.5 fL Mean Corpuscular Hemoglobin 29.1 pg Mean Corpuscular Hemoglobin Concent 32.9 g/dl RDW Standard Deviation 46.0 fL RDW Coefficient of Variation 14.1 % Platelet Count 168 K/uL Mean Platelet Volume 9.5 fL Sodium Level 140 mmol/L Potassium Level 4.0 mmol/L Chloride Level 103 mmol/L Carbon Dioxide Level 33 mmol/L Anion Gap 4.0 mmol/L Blood Urea Nitrogen 30 mg/dl Creatinine 1.40 mg/dl Est Creatinine Clear Calc Drug Dose 73.5 ml/min Estimated GFR () 66.9 Estimated GFR (Non- 57.8 BUN/Creatinine Ratio 21.6 Random Glucose 118 mg/dl Calcium Level 7.9 mg/dl Phosphorus Level 3.8 mg/dl Magnesium Level 1.6 mg/dl Total Bilirubin 0.4 mg/dl Aspartate Amino Transf (AST/SGOT) 10 U/L Alanine Aminotransferase (ALT/SGPT) 15 U/L Alkaline Phosphatase 77 U/L Total Protein 5.9 gm/dl Albumin 2.2 gm/dl Globulin 3.7 gm/dl Albumin/Globulin Ratio 0.6 Test 02/08/17 06:14 02/08/17 08:19 02/08/17 10:16 02/08/17 12:28 Bedside Glucose 128 mg/dl 132 mg/dl 145 mg/dl 140 mg/dl
[2017-02-08] MEDS: IPRATROPIUM BROMIDE HFA INHALER INH SCH (19:57)
[2017-02-08] MEDS: LEValbuterol HFA 15GM INHALER INH SCH (19:58)
[2017-02-09] VITALS (43 sets, daily range): BP systolic 119–198; BP diastolic 65–108; PULSE 63–99; TEMP 36.4–38.1; O2SAT 90–100
[2017-02-09] MEDS: PROPOFOL IV EMULSION 10 MG/ML 100 ML VIAL IV PRN ×6 (00:31→18:20)
[2017-02-09] MEDS: FENTANYL 1250MCG/250ML NSS 250 ML IV PRN ×2 (00:37→10:44)
[2017-02-09] MEDS: LEValbuterol HFA 15GM INHALER INH SCH ×4 (01:50→21:00)
[2017-02-09] MEDS: IPRATROPIUM BROMIDE HFA INHALER INH SCH ×4 (01:50→21:00)
[2017-02-09] MEDS ORDERED: VANCOMYCIN TROUGH SCH (03:30)
[2017-02-09 03:50] LABS: BASO % 0.2 %; BASO ABS # 0.01 K/uL (0-0.2); EOS % 13.1 %; HEMATOCRIT 26.3 % (42-52); IG% 0.2 %; LYMPH % 24.6 %; LYMPH ABS # 1.07 K/uL (1.2-3.4); MEAN CELL VOLUME 87.4 fL (80-100); MEAN CORPUSCULAR HEMOGLOBIN 28.6 pg (25-34); MEAN CORPUSCULAR HGB CONC 32.7 g/dl (32-36); MEAN PLATELET VOLUME 9.5 fL (7.4-10.4); MONO % 15.9 %; PLATELET COUNT 169 K/uL (130-400); RED BLOOD COUNT 3.01 M/uL (4.7-6.1); WHITE BLOOD COUNT 4.35 K/uL (4.8-10.8)
[2017-02-09] MEDS: CLINDAMYCIN IV 600 MG in DEXTROSE 5% 50ML 50 ML IV SCH ×3 (04:03→20:10)
[2017-02-09 04:30] LABS: ANISOCYTOSIS PRESENT; COMPLETE YES
[2017-02-09 04:33] LABS: BUN/CREATININE RATIO 20.5 (10-20); CREATININE 1.4 mg/dl (0.60-1.40); PHOSPHORUS 4.3 mg/dl (2.5-4.9); POTASSIUM 3.7 mmol/L (3.5-5.1)
[2017-02-09] MEDS: VANCOMYCIN INJ 1,500 MG in SODIUM CHLORIDE 0.9% 500ML 500 ML IV SCH (04:51)
[2017-02-09] MEDS: CEFEPIME IV 2000 MG in DEXTROSE 5% 100ML IV SCH ×2 (07:50→15:32)
[2017-02-09] MEDS: INSULIN ASPART 100 UNITS/ML 3 ML PEN SC SCH ×6 (08:00→20:25)
[2017-02-09] MEDS: LISINOPRIL 5 MG TAB PO SCH (08:10)
[2017-02-09] MEDS: AMLODIPINE BESYLATE 5 MG TAB PO SCH (08:12)
[2017-02-09] MEDS: METOPROLOL TARTRATE 25 MG TAB PO SCH ×2 (08:13→20:27)
--- NOTE | 2017-02-09 08:22 | DIAGNOSTIC IMAGING REPORT ---
CHEST ONE VIEW PORTABLE HISTORY: 51 years-old Male check endo tube also status post endotracheal tube placement. Respiratory failure COMPARISON: Chest radiograph 02/07/2017 TECHNIQUE: Portable upright AP view of the chest FINDINGS: Endotracheal tube terminates 4.1 cm superior to the efrain. Enteric tube courses below the diaphragm outside the [id number]. Cardiac silhouette is mildly enlarged. No pneumothorax. There is improved aeration of the bilateral lungs with persistent hazy multifocal alveolar opacities. Small left pleural effusion. Fluid is seen layering along the right minor fissure. The bones are grossly intact. IMPRESSION: 1. Stable positioning of life support apparatus. 2. Cardiomegaly with improved aeration of the bilateral lungs. 3. Persistent small left pleural effusion. The above report was generated using voice recognition software. It may contain grammatical, syntax or spelling errors. Electronically signed by: Richard Metzger M.D. 02/09/2017 8:20 AM Dictated Date/Time: 02/09/2017 8:19 AM
[2017-02-09] MEDS: GABAPENTIN 250 MG/5 ML 470 ML BTL PEG SCH ×3 (08:53→20:28)
[2017-02-09] MEDS: LEVETIRACETAM ORAL SOLN 100MG/ML PO SCH ×2 (08:53→20:26)
[2017-02-09] MEDS: ASPIRIN 81 MG CHEW PEG SCH (08:53)
[2017-02-09] MEDS: DOCUSATE SODIUM/SENNA 50/8.6MG TAB PO SCH (08:54)
[2017-02-09] MEDS: VENLAFAXINE HCL XR 37.5 MG CAPXR PO SCH (08:54)
[2017-02-09] MEDS ORDERED: INSULIN GLARGINE SOLOSTAR 100 UNITS/ML 3 ML PEN SC SCH (09:00)
[2017-02-09] MEDS ORDERED: LABETALOL HCL IV 5 MG/ML 20ML IV STA (09:04)
--- NOTE | 2017-02-09 10:16 | Critical Care Progress Note ---
Critical Care Progress Note Date of Service Feb 09, 2017. Attending Dr. Marah Suazo I personally examined this patient, reviewed his clinical and laboratory data, interpreted this x-ray, CT scan and formulated further plan of care. In summary, patient is a 51 year old man with complicated history including chronic back pain, intrathecal pain pump infected with MSSA, suspected CSF infection, lumbar CSF leak, gastroparesis, daily vomiting, aspiration pneumonitis. Patient was transferred critically ill to the surgical intensive care unit on 02/07/2017 with acute change in mentation thought to be secondary to sepsis. Patient was intubated for hypoxemia and inability to protect airway. Pain pump was removed 02/08. He remains critically ill in the surgical ICU for management of the following problems. Uneventful night. 2 units of blood transfusion over the night for hemoglobin of 7.6. Objective General Appearance: Sedated, intubated, on the ventilator, not in distress Head: normocephalic, atraumatic Eyes: PERRLA, no discharge, EOMI, 2 mm in size ENT: normal ear exam, normal nasal exam, normal mouth exam Neck: normal range of motion, no tenderness, trachea midline Respiratory: Bilateral rhonchi at bases Cardiovasular: regular rate/rhythm, normal S1S2, normal peripheral pulses Abdomen: non tender, no rebound, no masses, right lower quadrant incisional wound with vacuum dressing in place Back: Lumbar incision with soaked dressing. Dressing removed- there was granulation tissue, no obvious CSF leak or pus. Upper Extremities: no edema, no deformity Lower Extremities: no edema, no deformity Neuro: Sedated, moves spontaneously all 4 extremities. Assessment & Plan 1. Sepsis. - Suspected CSF infection. CSF and blood cultures are negative. - Suspected aspiration pneumonia - PICC line 01/17 - We will continue with vancomycin, cefepime, clindamycin while awaiting for cultures. 2. Acute respiratory failure, intubated 02/07 for airway protection/hypoxia. 3. Hypertension. Echocardiography revealed normal biventricular systolic function, left ventricular hypertrophy, moderate MR. No signs of cardiac ischemia. 4. Gastroparesis. Gastric stimulator in situ. Tolerates tube feeds well. 5. Renal insufficiency. We'll monitor urinary output, replace it with colitis appropriately. 6. Metabolic encephalopathy, likely related to sepsis. CT scan without any acute abnormalities. 7. Moderate anemia, no signs of bleeding. sp RBCs 2 units transfusion overnight without appropriate elevation of hemoglobin, though no obvious signs of bleeding on physical examination. 8. Hyperglycemia, good control on minimal insulin drip. We'll change to subcutaneous sliding scale. 9. Pain management with fentanyl drip 100 migrans per hour, sedation with propofol. 10. GI/DVT prophylaxis. CCT 35 min. LITTLE TRAVERSE II Score Date Score Was Generated: Feb 09, 2017 Consults & Procedures Consultants: Anesthesiology, infectious disease. Procedures: Intubation: 02/07 Intrathecal pump removal 02/08 Data Medications: Current Inpatient Medications Medications (Trade) Dose Ordered Sig/Cal Route Start Time Stop Time Status Last Admin Dose Admin Glucose (Glucose 40% Gel) 15-30 GRAMS 15 GRAMS... UD PRN PO 02/02/17 03:45 03/04/17 03:44 Glucose (Glucose Chew Tab) 4-8 Tablets 4 Tabl... UD PRN PO 02/02/17 03:45 03/04/17 03:44 Dextrose (Dextrose 50% 50ML Syringe) 25-50ML OF 50% DW IV FOR... UD PRN IV 02/02/17 03:45 03/04/17 03:44 02/08/17 00:16 25 ML Glucagon (Glucagon Inj) 1 mg UD PRN SQ 02/02/17 03:45 03/04/17 03:44 Clindamycin Phosphate 600 mg/ Dextrose 54 ml @ 100 mls/hr Q8H IV 02/02/17 04:00 02/10/17 03:59 02/09/17 04:03 100 MLS/HR Clindamycin Phosphate (Consult) 1 ea UD PRN N/A 02/02/17 04:45 03/04/17 04:44 Folic Acid (Folvite Tab) 1 mg QAM PO 02/02/17 09:00 03/04/17 08:59 02/09/17 08:12 1 MG Pantoprazole Sodium (Protonix Tab) 40 mg QAM PO 02/02/17 09:00 03/04/17 08:59 02/08/17 08:15 40 MG Venlafaxine HCl (effeXOR EXTENDED REL CAP) 37.5 mg QAM PO 02/02/17 09:00 03/04/17 08:59 02/09/17 08:54 37.5 MG Ipratropium [place] (Atrovent 0.02% 0.5MG/2.5ML Neb) 0.5 mg Q4H PRN INH 02/02/17 04:00 03/04/17 03:59 Levalbuterol (Xopenex 1.25MG/ 0.5ML Neb) 1.25 mg Q4H PRN INH 02/02/17 04:00 03/04/17 03:59 Cefepime HCl (Consult) 1 ea UD PRN N/A 02/02/17 04:45 03/04/17 04:44 Vancomycin HCl (Consult) 1 ea UD PRN N/A 02/02/17 04:45 03/04/17 04:44 Cefepime HCl 2000 mg/Dextrose 112.5 ml @ 225 mls/hr Q8H IV 02/02/17 08:00 02/10/17 07:59 02/09/17 07:50 225 MLS/HR Senna/Docusate Sodium (Senokot S Tab) 1 tab QAM PO 02/02/17 09:00 03/04/17 08:59 02/08/17 08:15 1 TAB Hydromorphone HCl (Dilaudid Tab) 4 mg Q3HWA PRN PO 02/02/17 16:15 02/16/17 03:44 02/06/17 15:56 4 MG Heparin Sodium (Porcine) (Heparin 10 Unit/ ml 5 ml Flush) 5 ml PRN PRN FLUSH 02/03/17 00:30 03/05/17 00:29 02/04/17 17:30 5 ML Ondansetron HCl (Zofran Inj) 4 mg Q6H PRN IV 02/03/17 02:45 03/05/17 02:44 02/05/17 02:05 4 MG Promethazine HCl 12.5 mg/Sodium Chloride 50.5 ml @ 204 mls/hr Q6H PRN IV 02/03/17 02:45 03/05/17 02:44 02/07/17 02:35 204 MLS/HR Lorazepam (Ativan Inj) 0.25 mg Q6H PRN IV 02/03/17 06:00 03/05/17 05:59 02/05/17 22:34 0.25 MG Vancomycin HCl 1500 mg/Sodium Chloride 530 ml @ 200 mls/hr Q24H IV 02/04/17 04:00 03/02/17 23:59 Future hold 02/09/17 04:51 200 MLS/HR Amlodipine Besylate (Norvasc Tab) 10 mg DAILY PO 02/04/17 09:00 03/04/17 08:59 02/09/17 08:12 10 MG Enoxaparin Sodium (Lovenox Inj) 40 mg DAILY@1800 SQ 02/05/17 18:00 03/07/17 17:59 02/08/17 17:06 40 MG Metoprolol Tartrate (Lopressor Tab) 50 mg BID PO 02/05/17 21:00 03/04/17 08:59 02/09/17 08:13 50 MG Acetaminophen 650 mg/Empty Bag 65 ml @ 260 mls/hr Q6H PRN IV 02/07/17 02:30 03/09/17 02:29 02/07/17 02:50 260 MLS/HR Hydromorphone HCl (Dilaudid Inj) 2 mg Q2H PRN IV 02/07/17 15:45 02/21/17 15:44 02/07/17 17:36 1 MG Insulin Aspart (novoLOG ASPART) SLIDING SCALE PCHS SC 02/07/17 17:15 03/09/17 17:14 Insulin Human Regular 250 units/ Sodium Chloride 252.5 ml @ 0 mls/hr DAILY@1130 IV 02/07/17 17:00 02/09/17 15:00 02/08/17 13:32 1 MLS/HR Fentanyl Citrate 250 ml @ 20 mls/hr [id number] PRN IV 02/07/17 19:00 02/21/17 18:59 02/09/17 00:37 20 MLS/HR Propofol (Diprivan Iv Emulsion 100ml Vial) 1 dose UD PRN IV 02/07/17 19:00 02/10/17 18:59 02/09/17 07:46 1 DOSE Miscellaneous Information (Consult Glycemic Management Pharmacy) 1 ea UD PRN N/A 02/07/17 08:45 03/09/17 08:44 Enteral Nutritional Formula (Peptamen Intense VHP) 1,000 ml UD PRN NG 02/08/17 11:00 03/10/17 10:59 02/08/17 15:35 1,000 ML Ipratropium [place] (Atrovent Hfa Inhaler) 4 puffs Q6R INH 02/08/17 21:00 03/10/17 20:59 02/09/17 08:18 4 PUFFS Levalbuterol (Xopenex Hfa Inhaler) 4 puffs Q6R INH 02/08/17 21:00 03/10/17 20:59 02/09/17 08:18 4 PUFFS Gabapentin (Neurontin) 600 mg TID PEG 02/09/17 09:00 03/11/17 08:59 02/09/17 08:53 600 MG Aspirin (Aspirin Chew) 81 mg QAM PEG 02/09/17 09:00 03/11/17 08:59 02/09/17 08:53 81 MG Levetiracetam (Keppra Soln) 750 mg BID PO 02/09/17 09:00 03/11/17 08:59 02/09/17 08:53 750 MG Multivitamins Therapeutic (Cerovite Liquid) 15 ml QAM PEG 02/09/17 09:00 03/11/17 08:59 Insulin Glargine (Lantus Solostar Pen) 20 units DAILY SC 02/09/17 09:00 03/11/17 08:59 Lisinopril (Zestril Tab) 10 mg QAM PO 02/10/17 09:00 03/06/17 08:59 Vital Signs: Date Time Temp Pulse Resp B/P (MAP) Pulse Ox O2 Delivery O2 Flow Rate FiO2 02/09/17 08:21 94 17 92 Mechanical Ventilator 40 02/09/17 08:19 40 02/09/17 08:00 40 02/09/17 08:00 Mechanical Ventilator 40 02/09/17 06:00 96 16 198/100 (132) 93 Mechanical Ventilator 30 02/09/17 05:12 30 02/09/17 04:00 30 02/09/17 04:00 36.5 74 14 148/83 (104) 97 Mechanical Ventilator 30 02/09/17 04:00 Mechanical Ventilator 30 02/09/17 03:00 36.5 64 14 155/87 96 02/09/17 02:30 36.4 65 14 148/83 97 02/09/17 02:00 36.5 64 14 131/74 (93) 97 Mechanical Ventilator 30 02/09/17 02:00 36.5 64 14 131/74 97 02/09/17 01:50 30 02/09/17 01:40 36.5 64 14 126/72 97 02/09/17 01:25 36.5 64 14 128/74 97 02/09/17 01:25 36.5 64 14 128/74 97 02/09/17 01:00 36.6 63 14 127/69 97 02/09/17 00:30 36.6 64 14 123/70 96 02/09/17 00:01 36.6 63 14 119/65 (83) 97 Mechanical Ventilator 30 02/09/17 00:00 36.6 63 14 119/65 98 02/08/17 23:59 30 02/08/17 23:59 Mechanical Ventilator 30 02/08/17 23:45 36.6 64 14 104/64 95 02/08/17 23:26 36.7 65 14 120/71 95 02/08/17 23:00 40 02/08/17 22:00 70 14 117/72 (87) 98 Mechanical Ventilator 40 02/08/17 20:03 40 02/08/17 20:00 Mechanical Ventilator 40 02/08/17 20:00 37.2 70 14 117/74 (88) 98 Mechanical Ventilator 40 02/08/17 20:00 40 02/08/17 18:00 37.2 69 21 106/66 (79) 96 Mechanical Ventilator 50 02/08/17 17:05 50 02/08/17 16:00 37.2 80 21 119/62 (81) 96 Mechanical Ventilator 50 02/08/17 16:00 Mechanical Ventilator 50 02/08/17 14:10 72 14 100 Mechanical Ventilator 50 02/08/17 14:02 50 02/08/17 14:00 37.2 72 15 120/72 (88) 100 Mechanical Ventilator 50 02/08/17 13:00 37.4 72 14 106/64 (76) 99 02/08/17 12:00 100 Mechanical Ventilator 50 02/08/17 12:00 37.6 76 14 138/80 (99) 98 Mechanical Ventilator 50 02/08/17 11:00 37.7 78 17 136/82 (99) 100 02/08/17 10:55 50 Laboratory Results: Last 24 Hours Test 02/08/17 10:16 02/08/17 12:28 02/08/17 14:27 02/08/17 16:01 Bedside Glucose 145 mg/dl 140 mg/dl 140 mg/dl 138 mg/dl Test 02/08/17 17:57 02/08/17 20:17 02/08/17 21:48 02/09/17 00:40 Bedside Glucose 118 mg/dl 96 mg/dl 98 mg/dl 107 mg/dl Test 02/09/17 02:09 02/09/17 03:23 02/09/17 04:05 02/09/17 06:15 Bedside Glucose 108 mg/dl 117 mg/dl 123 mg/dl White Blood Count 4.35 K/uL Red Blood Count 3.01 M/uL Hemoglobin 8.6 g/dL Hematocrit 26.3 % Mean Corpuscular Volume 87.4 fL Mean Corpuscular Hemoglobin 28.6 pg Mean Corpuscular Hemoglobin Concent 32.7 g/dl Platelet Count 169 K/uL Mean Platelet Volume 9.5 fL Neutrophils (%) (Auto) 46.0 % Lymphocytes (%) (Auto) 24.6 % Monocytes (%) (Auto) 15.9 % Eosinophils (%) (Auto) 13.1 % Basophils (%) (Auto) 0.2 % Neutrophils # (Auto) 2.00 K/uL Lymphocytes # (Auto) 1.07 K/uL Monocytes # (Auto) 0.69 K/uL Eosinophils # (Auto) 0.57 K/uL Basophils # (Auto) 0.01 K/uL RDW Standard Deviation 47.9 fL RDW Coefficient of Variation 15.1 % Immature Granulocyte % (Auto) 0.2 % Immature Granulocyte # (Auto) 0.01 K/uL Anisocytosis PRESENT Sodium Level 140 mmol/L Potassium Level 3.7 mmol/L Chloride Level 104 mmol/L Carbon Dioxide Level 30 mmol/L Anion Gap 6.0 mmol/L Blood Urea Nitrogen 29 mg/dl Creatinine 1.40 mg/dl Est Creatinine Clear Calc Drug Dose 73.5 ml/min Estimated GFR () 66.9 Estimated GFR (Non- 57.8 BUN/Creatinine Ratio 20.5 Random Glucose 103 mg/dl Calcium Level 8.0 mg/dl Phosphorus Level 4.3 mg/dl Magnesium Level 2.0 mg/dl Vancomycin Level Trough 21.5 mcg/ml Test 02/09/17 07:53 Bedside Glucose 141 mg/dl
[2017-02-09] MEDS: INSULIN REGULAR 250 UNITS in SODIUM CHLORIDE 0.9% 250ML 250 ML IV SCH (13:41)
--- NOTE | 2017-02-09 13:46 | Progress Note ---
Internal Med Progress Note Date of Service: Feb 09, 2017. Provider Documentation: SUBJECTIVE: The patient was seen and Examined S/P Drainage of fluid collection from the back Very Drowsy this morning with SOB and low saturation of 70s Acute Change in mental status Transferred to ICU and later on required Vent Support OBJECTIVE: Vital Signs-as noted below Exam: General-Remains stable on VENT Sedated Eyes-normal ENT-normal Neck-Supple Lungs-decreased breath sound bilaterally With widespread crackles Heart-Regular,no murmur appreciated Abdomen-Benign,no masses,bowel sound present Extremities-Trace edema bilaterally Clear drainage from the back wound Neuro-Sedated on Vent Lab data as noted below. 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 and severe diabetic gastroparesis s/p gastric pacemaker; chronic pain syndrome on long-term opioids s/p intrathecal pump, HTN, H/O of seizure disorder - recently admitted for infected and leaking intrathecal pump with surgical repair and on long-term antibiotics - presents secondary to worsening back pain and worsening nausea/vomiting Acute Respiratory Failure :now on Vent Acute SOB this morning:Differential includes-Fluid overload,CHF,Pneumonia- Aspiration ,Narcotic induced ,exacerbation associated with lung cancer or even ARDS With change in mental status and decreased saturation of 70s Received 1 dose of Narcan,60mg IV Lasix ,CXR and blood tests and started on NRB ABG ordered and the patient is transferred to ICU for continued care Has been on IV Vanco,Cefepime and Clindamycin ID,Ortho and Pain therapist are on board Remains stable on VENT Anemia Likely secondary to Ongoing infection Will transfuse 2 units of PRBC S/p 2 units of PRBC Hb increased to 8.6 S/P Intubation 02/07/17 Breathing got worse following surgery :Removal of Intrathecal Pain Pump and catheter; Application of Wound Vac on 02/07/17 Remains sedated on VENT Management as per Group Director Persistent Intrathecal Pump Leakage and Infection-Removed Left Paraspinal Abscess Was discharged on 01/31 - during that admission, he had an I&D and stopped CSF leakage He had a PICC line put in and was discharged on 6 weeks of Vancomycin Abdominal/Pelvis CT suggests a persistent abscess around 4.2cm Patient is now on Cefepime, Clindamycin, and Vancomycin Appreciate ID input Appreciate Pain management and Spine Surgery input S/P I&D 02/05/17::No CSF leakage ,Old collection drained S/P Removal of Intrathecal Pain Pump and catheter; Application of Wound Vac on 02/07/17 CSF fluid showed increased WCC ~2000,Gm stain is negative Consulted Wound Care-appreciate input ID following Continue Current antibiotic Leakage from the wound at the back Bilateral Lower Extremity Swelling Possibly related to low protein Added boost TID-Nutrition consulted US negative for any clot HTN Has been on BB and Amlodipine and Lisinopril Still on the upper side Increase BB to 50mg BID Possible Aspiration Pneumonia Patient has had issues with nausea/vomiting He presented with some shortness of breath issues CXR suggests right perihilar and medial right lung base opacities suggesting atelectasis or pneumonia Added Clindamycin for anaerobic coverage Clinically better bur acutely SOB this morning Anasarca Likely from low protein Received one dose of IV Lasix Add boost glucose control Persistent Nausea/Vomiting He has a gastric pacemaker in, unfortunately, he still has persistent n/v Received one dose of Emend Continue Zofran PRN Chronic Pain on Long-Term Opioids Would appreciate pain management input Currently on PO hydromorphone 4mg q3hrs PRN Will try to avoid IV narcotics Asking for more pain medicine -appreciate Pain therapist input Removal of Intrathecal Pain Pump and catheter; Application of Wound Vac on Insulin Dependent DM2 Currently on Lantus 12 units BID Insulin sliding scale Monitor blood sugars - he presented with hypoglycemia; now slightly hyperglycemic, we will monitor Has been started on IN infusion Hx. of Seizure Disorder continue Keppra DVT ppx Will start Lovenox 40 mg Daily starting at 6 PM this Evening FULL CODE Continue current care in ICU Vital Signs: Date Time Temp Pulse Resp B/P (MAP) Pulse Ox O2 Delivery O2 Flow Rate FiO2 02/09/17 12:01 37.0 85 17 172/85 (114) 96 02/09/17 12:00 37.0 85 16 98 02/09/17 12:00 40 02/09/17 12:00 Mechanical Ventilator 40 02/09/17 12:00 37.4 85 16 172/85 (114) 96 Mechanical Ventilator 40 02/09/17 11:31 36.9 83 18 172/90 (117) 95 02/09/17 11:17 40 02/09/17 11:01 37.0 83 19 166/88 (114) 91 02/09/17 11:00 37.0 82 19 92 02/09/17 10:49 37.0 82 18 157/83 (107) 91 02/09/17 10:01 37.1 81 15 179/96 (123) 96 02/09/17 10:00 37.0 82 16 96 02/09/17 09:25 37.0 91 13 189/102 (131) 96 02/09/17 09:01 37.0 95 17 196/108 (137) 98 02/09/17 09:00 37.0 95 16 98 02/09/17 08:36 37.0 95 16 192/107 (135) 97 02/09/17 08:21 94 17 92 Mechanical Ventilator 40 02/09/17 08:20 37.0 95 17 197/98 (131) 94 02/09/17 08:19 40 02/09/17 08:01 37.0 96 17 197/98 (131) 94 02/09/17 08:00 40 02/09/17 08:00 37.0 96 18 92 02/09/17 08:00 Mechanical Ventilator 40 02/09/17 07:01 36.9 96 16 186/94 (124) 90 02/09/17 07:00 36.9 97 17 90 02/09/17 06:00 96 16 198/100 (132) 93 Mechanical Ventilator 30 02/09/17 05:12 30 02/09/17 04:00 30 02/09/17 04:00 36.5 74 14 148/83 (104) 97 Mechanical Ventilator 30 02/09/17 04:00 Mechanical Ventilator 30 02/09/17 03:00 36.5 64 14 155/87 96 02/09/17 02:30 36.4 65 14 148/83 97 02/09/17 02:00 36.5 64 14 131/74 (93) 97 Mechanical Ventilator 30 02/09/17 02:00 36.5 64 14 131/74 97 02/09/17 01:50 30 02/09/17 01:40 36.5 64 14 126/72 97 02/09/17 01:25 36.5 64 14 128/74 97 02/09/17 01:25 36.5 64 14 128/74 97 02/09/17 01:00 36.6 63 14 127/69 97 02/09/17 00:30 36.6 64 14 123/70 96 02/09/17 00:01 36.6 63 14 119/65 (83) 97 Mechanical Ventilator 30 02/09/17 00:00 36.6 63 14 119/65 98 02/08/17 23:59 30 02/08/17 23:59 Mechanical Ventilator 30 02/08/17 23:45 36.6 64 14 104/64 95 02/08/17 23:26 36.7 65 14 120/71 95 02/08/17 23:00 40 02/08/17 22:00 70 14 117/72 (87) 98 Mechanical Ventilator 40 02/08/17 20:03 40 02/08/17 20:00 Mechanical Ventilator 40 02/08/17 20:00 37.2 70 14 117/74 (88) 98 Mechanical Ventilator 40 02/08/17 20:00 40 02/08/17 18:00 37.2 69 21 106/66 (79) 96 Mechanical Ventilator 50 02/08/17 17:05 50 02/08/17 16:00 37.2 80 21 119/62 (81) 96 Mechanical Ventilator 50 02/08/17 16:00 Mechanical Ventilator 50 02/08/17 14:10 72 14 100 Mechanical Ventilator 50 02/08/17 14:02 50 02/08/17 14:00 37.2 72 15 120/72 (88) 100 Mechanical Ventilator 50 Lab Results: Results Past 24 Hours Test 02/08/17 14:27 02/08/17 16:01 02/08/17 17:57 02/08/17 20:17 Range/Units Bedside Glucose 140 138 118 96 70-99 mg/dl Test 02/08/17 21:48 02/09/17 00:40 02/09/17 02:09 02/09/17 03:23 Range/Units Bedside Glucose 98 107 108 70-99 mg/dl White Blood Count 4.35 4.8-10.8 K/uL Red Blood Count 3.01 4.7-6.1 M/uL Hemoglobin 8.6 14.0-18.0 g/dL Hematocrit 26.3 42-52 % Mean Corpuscular Volume 87.4 80-100 fL Mean Corpuscular Hemoglobin 28.6 25-34 pg Mean Corpuscular Hemoglobin Concent 32.7 32-36 g/dl Platelet Count 169 130-400 K/uL Mean Platelet Volume 9.5 7.4-10.4 fL Neutrophils (%) (Auto) 46.0 % Lymphocytes (%) (Auto) 24.6 % Monocytes (%) (Auto) 15.9 % Eosinophils (%) (Auto) 13.1 % Basophils (%) (Auto) 0.2 % Neutrophils # (Auto) 2.00 1.4-6.5 K/uL Lymphocytes # (Auto) 1.07 1.2-3.4 K/uL Monocytes # (Auto) 0.69 0.11-0.59 K/uL Eosinophils # (Auto) 0.57 0-0.5 K/uL Basophils # (Auto) 0.01 0-0.2 K/uL RDW Standard Deviation 47.9 36.4-46.3 fL RDW Coefficient of Variation 15.1 11.5-14.5 % Immature Granulocyte % (Auto) 0.2 % Immature Granulocyte # (Auto) 0.01 0.00-0.02 K/uL Anisocytosis PRESENT Sodium Level 140 136-145 mmol/L Potassium Level 3.7 3.5-5.1 mmol/L Chloride Level 104 98-107 mmol/L Carbon Dioxide Level 30 21-32 mmol/L Anion Gap 6.0 3-11 mmol/L Blood Urea Nitrogen 29 7-18 mg/dl Creatinine 1.40 0.60-1.40 mg/dl Est Creatinine Clear Calc Drug Dose 73.5 ml/min Estimated GFR () 66.9 Estimated GFR (Non- 57.8 BUN/Creatinine Ratio 20.5 10-20 Random Glucose 103 70-99 mg/dl Calcium Level 8.0 8.5-10.1 mg/dl Phosphorus Level 4.3 2.5-4.9 mg/dl Magnesium Level 2.0 1.8-2.4 mg/dl Vancomycin Level Trough 21.5 SEE COMMENT mcg/ml Test 02/09/17 04:05 02/09/17 06:15 02/09/17 07:53 Range/Units Bedside Glucose 117 123 141 70-99 mg/dl
[2017-02-09] MEDS: LANSOPRAZOLE SOLUTAB 30 MG NG SCH (14:02)
[2017-02-09] MEDS: LISINOPRIL 10 MG TAB PO SCH (14:03)
--- NOTE | 2017-02-09 14:22 | Pharmacy Progress Note ---
Glycemic Control Progress Note Date of Service Feb 09, 2017. Scope Glycemic Pharmacist consulted for glycemic control to write orders per [facility] inpatient glycemic control protocol. Objective Accuchecks BSG (last 24hrs): Test 02/08/17 14:27 02/08/17 16:01 02/08/17 17:57 02/08/17 20:17 Bedside Glucose 140 mg/dl (70-99) 138 mg/dl (70-99) 118 mg/dl (70-99) 96 mg/dl (70-99) Test 02/08/17 21:48 02/09/17 00:40 02/09/17 02:09 02/09/17 03:23 Bedside Glucose 98 mg/dl (70-99) 107 mg/dl (70-99) 108 mg/dl (70-99) Random Glucose 103 mg/dl (70-99) Test 02/09/17 04:05 02/09/17 06:15 02/09/17 07:53 Bedside Glucose 117 mg/dl (70-99) 123 mg/dl (70-99) 141 mg/dl (70-99) Recent Pertinent Medications The patient is currently receiving: * IV insulin infusion, running at 0.8units/hr over the past 8+ hours * Goal Range 110 - 190 mg/dl Outpatient Anti-Diabetic Meds Lantus 20 units HS Novolog 5 units ACHS + Sliding scale Assessment & Plan ASSESSMENT: * See progress note from 02/08 for more background info, in short: * Pt receiving IV insulin drip for hyperglycemia secondary to baseline DM ( outpatient regimen on hold),stress/infection,pressors, dextrose IVF, recent surgery, and mechanical ventilation * Patient has been on the insulin drip for >48 hrs and has been on a constant rate of 0.8units/hr for over 8 hours and therefore is a candidate to transition to basal bolus therapy. * Patient's tube feeds have also advanced to goal of 65ml/hr * Pepatmen Bariatric provides 78 grams CHO/ liter, therefore about 20 grams CHO every 4 hours * These carbohydrates will need covered with insulin PLAN FOR INPATIENT GLYCEMIC CONTROL: * Discontinue IV insulin infusion at 1500 today (after 6 hours of overlap with Lantus) * Goal Range 110 - 190 mg/dl * Basal insulin * Lantus 20 units SQ daily starting NOW * Bolus insulin * NovoLog per scale Q4H * Goal Range: Low 140 mg/dL - High 180 mg/dL * Correction Factor: 20 mg/dL/unit * Nutritional / Prandial insulin: * NovoLog 3 units SQ Q4H (to cover carbs in tube feeds) * HOLD if tube feeds held RECOMMENDATIONS FOR DISCHARGE: * A1c = 7.2%, continue home regimen. * Please note that the plan above was derived based on current level of insulin resistance and hospital stress. These recommendations are appropriate for inpatient admission only. Plan of care upon discharge will need to be reassessed to avoid potential outpatient hypo/hyperglycemia. Thank you.
--- NOTE | 2017-02-09 14:28 | Pharmacy Progress Note ---
Pharmacy Antibiotic Prog Note Date of Service Feb 09, 2017. Subjective The patient is currently receiving vancomycin 1500 mg IV every 24 hours. Objective Height (Feet): 5 Height (Inches): 8.00 Weight (Kilograms): 98.300 Lab Results (24hrs): Test 02/09/17 03:23 02/09/17 06:15 02/09/17 07:53 White Blood Count 4.35 K/uL (4.8-10.8) Red Blood Count 3.01 M/uL (4.7-6.1) Hemoglobin 8.6 g/dL (14.0-18.0) Hematocrit 26.3 % (42-52) Mean Corpuscular Volume 87.4 fL (80-100) Mean Corpuscular Hemoglobin 28.6 pg (25-34) Mean Corpuscular Hemoglobin Concent 32.7 g/dl (32-36) Platelet Count 169 K/uL (130-400) Mean Platelet Volume 9.5 fL (7.4-10.4) Neutrophils (%) (Auto) 46.0 % Lymphocytes (%) (Auto) 24.6 % Monocytes (%) (Auto) 15.9 % Eosinophils (%) (Auto) 13.1 % Basophils (%) (Auto) 0.2 % Neutrophils # (Auto) 2.00 K/uL (1.4-6.5) Lymphocytes # (Auto) 1.07 K/uL (1.2-3.4) Monocytes # (Auto) 0.69 K/uL (0.11-0.59) Eosinophils # (Auto) 0.57 K/uL (0-0.5) Basophils # (Auto) 0.01 K/uL (0-0.2) RDW Standard Deviation 47.9 fL (36.4-46.3) RDW Coefficient of Variation 15.1 % (11.5-14.5) Immature Granulocyte % (Auto) 0.2 % Immature Granulocyte # (Auto) 0.01 K/uL (0.00-0.02) Anisocytosis PRESENT Sodium Level 140 mmol/L (136-145) Potassium Level 3.7 mmol/L (3.5-5.1) Chloride Level 104 mmol/L (98-107) Carbon Dioxide Level 30 mmol/L (21-32) Anion Gap 6.0 mmol/L (3-11) Blood Urea Nitrogen 29 mg/dl (7-18) Creatinine 1.40 mg/dl (0.60-1.40) Est Creatinine Clear Calc Drug Dose 73.5 ml/min Estimated GFR () 66.9 Estimated GFR (Non- 57.8 BUN/Creatinine Ratio 20.5 (10-20) Random Glucose 103 mg/dl (70-99) Calcium Level 8.0 mg/dl (8.5-10.1) Phosphorus Level 4.3 mg/dl (2.5-4.9) Magnesium Level 2.0 mg/dl (1.8-2.4) Vancomycin Level Trough 21.5 mcg/ml (SEE COMMENT) Bedside Glucose 123 mg/dl (70-99) 141 mg/dl (70-99) Assessment & Plan Assessment * 51 yo M with a complicated medical history admitted w 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 ID following. * Goal vancomycin trough 15-20 mcg/mL * Trough of 21.5 mcg/mL is slightly supratherapeutic * OK to decrease dose, but would prefer to be in the upper end of the therapeutic range 2nd indication and severity of illness therefore will only decrease slightly * Repeat trough before 3rd dose of new regimen Plan * Decrease vancomycin 1250 mg IV q24h * Trough 02/12 @ 0530 Pharmacy will continue to follow and will adjust dose/frequency as necessary. Thank you
[2017-02-09] MEDS: MULTIVITAMINS W/MINERALS 15ML UDP PEG SCH (16:06)
[2017-02-09] MEDS: PEPTAMEN INTENSE VHP 1000ML BAG NG PRN (16:07)
--- NOTE | 2017-02-09 16:43 | DIAGNOSTIC IMAGING REPORT ---
CHEST ONE VIEW PORTABLE HISTORY: 51 years-old Male check the placement of the endo tube also (again) status post placement of endotracheal tube. Respiratory failure COMPARISON: Chest radiograph 02/09/2017 at 8:06 AM TECHNIQUE: Portable upright AP view of the chest FINDINGS: Endotracheal tube terminates 4.8 cm superior to the efrain of the lungs midline. Enteric tube courses below the diaphragm into the region of the gastric lumen. Right-sided PICC appears unchanged. Cardiac silhouette is again mildly enlarged. No pneumothorax. Persistent mild pulmonary edema pattern is noted with decreased fluid tracking along the right minor fissure. Persistent patchy bibasilar opacities are present with small left pleural effusion. Bones appear grossly intact. IMPRESSION: 1. Endotracheal tube terminates 4.8 cm superior to the level of the efrain. 2. Cardiomegaly with persistent mild pulmonary edema pattern. 3. Unchanged small left pleural effusion with bibasilar patchy opacities. The above report was generated using voice recognition software. It may contain grammatical, syntax or spelling errors. Electronically signed by: Richard Metzger M.D. 02/09/2017 4:42 PM Dictated Date/Time: 02/09/2017 4:39 PM
[2017-02-09] MEDS: ENOXAPARIN 40 MG/0.4 ML SYR SQ SCH (16:47)
[2017-02-09] MEDS: LABETALOL HCL IV 5 MG/ML 20ML IV PRN (17:36)
[2017-02-09] MEDS: ACETAMINOPHEN IV 650 MG in EMPTY BAG 0 ML IV PRN (17:44)
[2017-02-10] VITALS (41 sets, daily range): BP systolic 101–197; BP diastolic 60–112; PULSE 71–111; TEMP 37–37.9; O2SAT 89–100
[2017-02-10] MEDS: CEFEPIME IV 2000 MG in DEXTROSE 5% 100ML IV SCH ×3 (00:23→15:33)
[2017-02-10] MEDS: INSULIN ASPART 100 UNITS/ML 3 ML PEN SC SCH ×10 (00:30→20:00)
[2017-02-10] MEDS: IPRATROPIUM BROMIDE HFA INHALER INH SCH ×3 (01:17→14:32)
[2017-02-10] MEDS: LEValbuterol HFA 15GM INHALER INH SCH ×3 (01:18→14:32)
[2017-02-10] MEDS: FENTANYL 1250MCG/250ML NSS 250 ML IV PRN ×2 (02:04→13:17)
[2017-02-10] MEDS: CLINDAMYCIN IV 600 MG in DEXTROSE 5% 50ML 50 ML IV SCH ×3 (04:45→20:58)
[2017-02-10] MEDS: VANCOMYCIN INJ 1,250 MG in SODIUM CHLORIDE 0.9% 250ML 250 ML IV SCH (05:51)
[2017-02-10] MEDS: PROPOFOL IV EMULSION 10 MG/ML 100 ML VIAL IV PRN ×2 (07:39→15:29)
--- NOTE | 2017-02-10 07:49 | Critical Care Progress Note ---
Critical Care Progress Note Date of Service Feb 10, 2017. Attending Dr. Marah Suazo I personally examined this patient, reviewed his clinical and laboratory data, interpreted this x-ray, CT scan and formulated further plan of care. In summary, patient is a 51 year old man with complicated history including chronic back pain, intrathecal pain pump infected with MSSA, suspected CSF infection, lumbar CSF leak, gastroparesis, daily vomiting, aspiration pneumonitis. Patient was transferred critically ill to the surgical intensive care unit on 02/07/2017 with acute change in mentation thought to be secondary to sepsis. Patient was intubated for hypoxemia and inability to protect airway. Pain pump was removed 02/08. He remains critically ill in the surgical ICU for management of the following problems. New episode of fever, otherwise uneventful night. Sedated on propofol and fentanyl Objective General Appearance: Sedated with fentanyl and propofol. Head: normocephalic, atraumatic Eyes: PERRLA, no discharge, EOMI, 2 mm in size ENT: normal ear exam, normal nasal exam, normal mouth exam Neck: normal range of motion, no tenderness, trachea midline Respiratory: Bilateral rhonchi at bases Cardiovasular: regular rate/rhythm, normal S1S2, normal peripheral pulses Abdomen: non tender, no rebound, no masses, right lower quadrant incision with VAC dressing application Back: Lumbar incision dressing is dry which is improvement. Upper Extremities: no edema, no deformity Lower Extremities: no edema, no deformity Neuro: moves spontaneously all 4 extremities, sedated. Assessment & Plan 1. Sepsis. - Suspected CSF infection. CSF and blood cultures are negative. On vancomycin, cefepime and clindamycin. If cultures are negative we will discuss tomorrow with ID specialist about downsizing antibiotic regimen. -New fever - Suspected aspiration pneumonia improving, bronchoscopy today with minimal secretions, no purulence - PICC line from 01/17 was discontinued today, new central line was placed - We will discontinue Peace catheter. 2. Acute respiratory failure, intubated 02/07 for airway protection/hypoxia. We will start aggressive weaning trial. 3. Hypertension on lisinopril, Norvasc and carvedilol well controlled. Echocardiography revealed normal biventricular systolic function, left ventricular hypertrophy, moderate MR. No signs of cardiac ischemia. 4. Gastroparesis. Gastric stimulator in situ. Tolerates tube feeds well. 5. Renal insufficiency. We'll monitor urinary output, replace electrolytes appropriately. 6. Metabolic encephalopathy, likely related to sepsis. CT scan without any acute abnormalities. 7. Moderate anemia, no signs of bleeding. sp RBCs 2 units transfusion yesterday without appropriate elevation of hemoglobin, though no obvious signs of bleeding on physical examination. 8. Hyperglycemia. We'll increase insulin sliding scale. 9. Pain management with fentanyl drip 100 migrans per hour, sedation with propofol. 10. GI/DVT prophylaxis. I spent totally 35 minutes of critical care time evaluating and managing this patient. This is exclusive of central line placement and bronchoscopy. I also updated his 5 the bedside, discussed his clinical condition and further management plan. [place] Score Date Score Was Generated: Feb 09, 2017 Consults & Procedures Consultants: Anesthesia Critical care Infectious disease Procedures: Discontinuation of intrathecal pump Data Medications: Current Inpatient Medications Medications (Trade) Dose Ordered Sig/Cal Route Start Time Stop Time Status Last Admin Dose Admin Glucose (Glucose 40% Gel) 15-30 GRAMS 15 GRAMS... UD PRN PO 02/02/17 03:45 03/04/17 03:44 Glucose (Glucose Chew Tab) 4-8 Tablets 4 Tabl... UD PRN PO 02/02/17 03:45 03/04/17 03:44 Dextrose (Dextrose 50% 50ML Syringe) 25-50ML OF 50% DW IV FOR... UD PRN IV 02/02/17 03:45 03/04/17 03:44 02/08/17 00:16 25 ML Glucagon (Glucagon Inj) 1 mg UD PRN SQ 02/02/17 03:45 03/04/17 03:44 Clindamycin Phosphate 600 mg/ Dextrose 54 ml @ 100 mls/hr Q8H IV 02/02/17 04:00 02/11/17 19:59 02/10/17 04:45 100 MLS/HR Clindamycin Phosphate (Consult) 1 ea UD PRN N/A 02/02/17 04:45 03/04/17 04:44 Folic Acid (Folvite Tab) 1 mg QAM PO 02/02/17 09:00 03/04/17 08:59 02/09/17 08:12 1 MG Venlafaxine HCl (effeXOR EXTENDED REL CAP) 37.5 mg QAM PO 02/02/17 09:00 03/04/17 08:59 02/09/17 08:54 37.5 MG Ipratropium [place] (Atrovent 0.02% 0.5MG/2.5ML Neb) 0.5 mg Q4H PRN INH 02/02/17 04:00 03/04/17 03:59 Levalbuterol (Xopenex 1.25MG/ 0.5ML Neb) 1.25 mg Q4H PRN INH 02/02/17 04:00 03/04/17 03:59 Cefepime HCl (Consult) 1 ea UD PRN N/A 02/02/17 04:45 03/04/17 04:44 Vancomycin HCl (Consult) 1 ea UD PRN N/A 02/02/17 04:45 03/04/17 04:44 Cefepime HCl 2000 mg/Dextrose 112.5 ml @ 225 mls/hr Q8H IV 02/02/17 08:00 02/11/17 23:59 02/10/17 00:23 225 MLS/HR Senna/Docusate Sodium (Senokot S Tab) 1 tab QAM PO 02/02/17 09:00 03/04/17 08:59 02/08/17 08:15 1 TAB Hydromorphone HCl (Dilaudid Tab) 4 mg Q3HWA PRN PO 02/02/17 16:15 02/16/17 03:44 02/06/17 15:56 4 MG Heparin Sodium (Porcine) (Heparin 10 Unit/ ml 5 ml Flush) 5 ml PRN PRN FLUSH 02/03/17 00:30 03/05/17 00:29 02/04/17 17:30 5 ML Ondansetron HCl (Zofran Inj) 4 mg Q6H PRN IV 02/03/17 02:45 03/05/17 02:44 02/05/17 02:05 4 MG Promethazine HCl 12.5 mg/Sodium Chloride 50.5 ml @ 204 mls/hr Q6H PRN IV 02/03/17 02:45 03/05/17 02:44 02/07/17 02:35 204 MLS/HR Lorazepam (Ativan Inj) 0.25 mg Q6H PRN IV 02/03/17 06:00 03/05/17 05:59 02/05/17 22:34 0.25 MG Amlodipine Besylate (Norvasc Tab) 10 mg DAILY PO 02/04/17 09:00 03/04/17 08:59 02/09/17 08:12 10 MG Enoxaparin Sodium (Lovenox Inj) 40 mg DAILY@1800 SQ 02/05/17 18:00 03/07/17 17:59 02/09/17 16:47 40 MG Metoprolol Tartrate (Lopressor Tab) 50 mg BID PO 02/05/17 21:00 03/04/17 08:59 02/09/17 20:27 50 MG Acetaminophen 650 mg/Empty Bag 65 ml @ 260 mls/hr Q6H PRN IV 02/07/17 02:30 03/09/17 02:29 02/09/17 17:44 260 MLS/HR Hydromorphone HCl (Dilaudid Inj) 2 mg Q2H PRN IV 02/07/17 15:45 02/21/17 15:44 02/07/17 17:36 1 MG Fentanyl Citrate 250 ml @ 20 mls/hr [id number] PRN IV 02/07/17 19:00 02/21/17 18:59 02/10/17 02:04 20 MLS/HR Propofol (Diprivan Iv Emulsion 100ml Vial) 1 dose UD PRN IV 02/07/17 19:00 02/10/17 18:59 02/09/17 18:20 1 DOSE Miscellaneous Information (Consult Glycemic Management Pharmacy) 1 ea UD PRN N/A 02/07/17 08:45 03/09/17 08:44 Enteral Nutritional Formula (Peptamen Intense VHP) 1,000 ml UD PRN NG 02/08/17 11:00 03/10/17 10:59 02/09/17 16:07 1,000 ML Ipratropium [place] (Atrovent Hfa Inhaler) 4 puffs Q6R INH 02/08/17 21:00 03/10/17 20:59 02/10/17 07:07 4 PUFFS Levalbuterol (Xopenex Hfa Inhaler) 4 puffs Q6R INH 02/08/17 21:00 03/10/17 20:59 02/10/17 07:07 4 PUFFS Gabapentin (Neurontin) 600 mg TID PEG 02/09/17 09:00 03/11/17 08:59 02/09/17 20:28 600 MG Aspirin (Aspirin Chew) 81 mg QAM PEG 02/09/17 09:00 03/11/17 08:59 02/09/17 08:53 81 MG Levetiracetam (Keppra Soln) 750 mg BID PO 02/09/17 09:00 03/11/17 08:59 02/09/17 20:26 750 MG Multivitamins Therapeutic (Cerovite Liquid) 15 ml QAM PEG 02/09/17 09:00 03/11/17 08:59 02/09/17 16:06 15 ML Insulin Glargine (Lantus Solostar Pen) 20 units DAILY SC 02/09/17 09:00 03/11/17 08:59 02/09/17 10:46 20 UNITS Lisinopril (Zestril Tab) 10 mg QAM PO 02/10/17 09:00 03/06/17 08:59 02/09/17 14:03 5 MG Insulin Aspart (novoLOG ASPART) SLIDING SCALE Q4 SC 02/09/17 12:00 03/11/17 11:59 02/10/17 00:30 4 UNITS Vancomycin HCl 1250 mg/Sodium Chloride 275 ml @ 125 mls/hr DAILY@0600 IV 02/10/17 06:00 02/17/17 05:59 02/10/17 05:51 125 MLS/HR Lansoprazole (Prevacid Solutab) 30 mg DAILY NG 02/09/17 13:45 03/11/17 13:44 02/09/17 14:02 30 MG Insulin Aspart (novoLOG ASPART) 3 units Q4 SC 02/09/17 16:00 03/11/17 15:59 02/10/17 04:42 3 UNITS Labetalol HCl (Normodyne IV) 10 mg ONE PRN IV 02/09/17 16:15 03/11/17 16:14 02/09/17 17:36 10 MG Vital Signs: Date Time Temp Pulse Resp B/P (MAP) Pulse Ox O2 Delivery O2 Flow Rate FiO2 02/10/17 07:25 40 02/10/17 06:01 37.3 73 15 102/61 (75) 99 Mechanical Ventilator 40 02/10/17 05:31 37.3 72 15 108/61 (77) 100 02/10/17 05:01 37.2 71 15 105/61 (76) 99 02/10/17 04:59 40 02/10/17 04:07 40 02/10/17 04:07 Mechanical Ventilator 40 02/10/17 04:01 37.1 73 16 107/61 (76) 99 02/10/17 03:31 37.1 73 14 102/60 (74) 100 02/10/17 03:01 37.1 73 14 102/60 (74) 99 02/10/17 02:31 37.0 73 16 101/60 (74) 100 02/10/17 02:01 37.0 74 16 107/63 (78) 99 02/10/17 01:45 40 02/10/17 01:01 37.4 75 14 105/60 (75) 99 02/10/17 00:44 40 02/10/17 00:44 Mechanical Ventilator 40 02/10/17 00:31 37.5 79 14 116/67 (83) 99 02/10/17 00:01 37.7 88 17 143/81 (101) 91 02/09/17 23:31 37.7 82 16 134/74 (94) 100 02/09/17 23:01 37.8 84 12 125/76 (92) 100 02/09/17 23:00 40 02/09/17 22:01 38.1 89 12 150/78 (102) 100 Mechanical Ventilator 40 02/09/17 21:31 38.1 95 18 170/84 (112) 100 Mechanical Ventilator 40 02/09/17 21:01 38.1 98 20 166/80 (108) 93 Mechanical Ventilator 40 02/09/17 20:31 38.1 98 18 180/84 (116) 96 Mechanical Ventilator 40 02/09/17 20:04 Mechanical Ventilator 40 02/09/17 20:04 40 02/09/17 20:01 38.1 99 19 182/87 (118) 95 Mechanical Ventilator 40 02/09/17 19:31 38.0 97 19 183/87 (119) 96 Mechanical Ventilator 40 02/09/17 19:01 37.9 96 19 175/85 (115) 90 Mechanical Ventilator 40 02/09/17 18:02 40 02/09/17 18:00 37.7 95 19 167/86 (113) 95 Mechanical Ventilator 40 02/09/17 17:00 37.7 90 16 152/72 (98) 92 Mechanical Ventilator 40 02/09/17 16:31 37.6 91 17 159/77 (104) 96 02/09/17 16:00 40 02/09/17 16:00 Mechanical Ventilator 40 02/09/17 16:00 37.6 93 19 171/79 (109) 96 02/09/17 14:31 40 02/09/17 14:00 37.3 85 16 154/82 (106) 96 Mechanical Ventilator 40 02/09/17 12:01 37.0 85 17 172/85 (114) 96 02/09/17 12:00 37.0 85 16 98 02/09/17 12:00 40 02/09/17 12:00 Mechanical Ventilator 40 02/09/17 12:00 37.4 85 16 172/85 (114) 96 Mechanical Ventilator 40 02/09/17 11:31 36.9 83 18 172/90 (117) 95 02/09/17 11:17 40 02/09/17 11:01 37.0 83 19 166/88 (114) 91 02/09/17 11:00 37.0 82 19 92 02/09/17 10:49 37.0 82 18 157/83 (107) 91 02/09/17 10:01 37.1 81 15 179/96 (123) 96 02/09/17 10:00 37.0 82 16 96 02/09/17 09:25 37.0 91 13 189/102 (131) 96 02/09/17 09:01 37.0 95 17 196/108 (137) 98 02/09/17 09:00 37.0 95 16 98 02/09/17 08:36 37.0 95 16 192/107 (135) 97 02/09/17 08:21 94 17 92 Mechanical Ventilator 40 02/09/17 08:20 37.0 95 17 197/98 (131) 94 02/09/17 08:19 40 02/09/17 08:01 37.0 96 17 197/98 (131) 94 02/09/17 08:00 40 02/09/17 08:00 37.0 96 18 92 02/09/17 08:00 Mechanical Ventilator 40 Laboratory Results: Last 24 Hours Test 02/09/17 07:53 02/09/17 11:49 02/09/17 14:17 02/09/17 16:13 Bedside Glucose 141 mg/dl 185 mg/dl 198 mg/dl 224 mg/dl Test 02/09/17 20:13 02/10/17 00:25 02/10/17 04:29 Bedside Glucose 257 mg/dl 244 mg/dl 173 mg/dl
[2017-02-10 08:14] LABS: HEMATOCRIT 26.9 % (42-52); MEAN CELL VOLUME 86.8 fL (80-100); MEAN CORPUSCULAR HEMOGLOBIN 28.1 pg (25-34); MEAN CORPUSCULAR HGB CONC 32.3 g/dl (32-36); MEAN PLATELET VOLUME 9.5 fL (7.4-10.4); PLATELET COUNT 155 K/uL (130-400); WHITE BLOOD COUNT 5.17 K/uL (4.8-10.8)
[2017-02-10] MEDS: METOPROLOL TARTRATE 25 MG TAB PO SCH ×2 (08:14→21:00)
[2017-02-10] MEDS: GABAPENTIN 250 MG/5 ML 470 ML BTL PEG SCH ×2 (08:14→15:29)
[2017-02-10] MEDS: VENLAFAXINE HCL XR 37.5 MG CAPXR PO SCH (08:14)
[2017-02-10] MEDS: ASPIRIN 81 MG CHEW PEG SCH (08:15)
[2017-02-10] MEDS: LISINOPRIL 10 MG TAB PO SCH (08:15)
[2017-02-10] MEDS: LANSOPRAZOLE SOLUTAB 30 MG NG SCH (08:15)
[2017-02-10] MEDS: MULTIVITAMINS W/MINERALS 15ML UDP PEG SCH (08:15)
[2017-02-10] MEDS: AMLODIPINE BESYLATE 5 MG TAB PO SCH (08:16)
[2017-02-10] MEDS: LEVETIRACETAM ORAL SOLN 100MG/ML PO SCH (08:16)
[2017-02-10] MEDS: DOCUSATE SODIUM/SENNA 50/8.6MG TAB PO SCH (08:26)
[2017-02-10] MEDS: PEPTAMEN INTENSE VHP 1000ML BAG NG PRN (08:26)
[2017-02-10] MEDS: INSULIN GLARGINE SOLOSTAR 100 UNITS/ML 3 ML PEN SC SCH (08:27)
[2017-02-10 08:43] LABS: BUN/CREATININE RATIO 18.7 (10-20); CALCIUM 8.3 mg/dl (8.5-10.1); CREATININE 1.8 mg/dl (0.60-1.40); MAGNESIUM 1.9 mg/dl (1.8-2.4); POTASSIUM 3.8 mmol/L (3.5-5.1)
[2017-02-10 08:45] LABS: ALB/GLOB RATIO 0.5 (0.9-2); PHOSPHORUS 5.1 mg/dl (2.5-4.9)
[2017-02-10] MEDS ORDERED: LIDOCAINE HCL 1% 20 ML VIAL ONE (09:51)
--- NOTE | 2017-02-10 11:16 | DIAGNOSTIC IMAGING REPORT ---
CHEST ONE VIEW PORTABLE CLINICAL HISTORY: 51 years-old Male presenting with R IJ CL. TECHNIQUE: Portable semiupright AP view of the chest was obtained. COMPARISON: 02/09/2017. FINDINGS: Endotracheal tube terminates in the upper thoracic trachea over 7 cm from the efrain. Right internal jugular central venous catheter now in place terminating in the lower SVC. Right upper extremity PICC terminates in the upper SVC. Nasogastric tube terminates in the body of the stomach. Multiple overlying external leads and tubing degrade image quality. Cardiomediastinal silhouette within normal limits. Left basilar opacity and small left pleural effusion stable to slightly decreased from prior. Right lung and pleural space clear. Degenerative changes of the spine. Upper abdomen normal. IMPRESSION: 1. Lines and tubes appropriately positioned as above. No pneumothorax. 2. Persistent left basilar opacity and small left pleural effusion, stable to slightly decreased from prior. Electronically signed by: Ronnell Renee M.D. 02/10/2017 11:15 AM Dictated Date/Time: 02/10/2017 11:12 AM
[2017-02-10] MEDS ORDERED: NURSING VERBAL MED ORDER ONE ×4 (12:30→21:15)
--- NOTE | 2017-02-10 13:38 | Pharmacy Progress Note ---
Glycemic Control Progress Note Date of Service Feb 10, 2017. Scope Glycemic Pharmacist consulted for glycemic control to write orders per [facility] inpatient glycemic control protocol. Objective Accuchecks BSG (last 24hrs): Test 02/09/17 14:17 02/09/17 16:13 02/09/17 20:13 02/10/17 00:25 Bedside Glucose 198 mg/dl (70-99) 224 mg/dl (70-99) 257 mg/dl (70-99) 244 mg/dl (70-99) Test 02/10/17 04:29 02/10/17 07:44 02/10/17 08:03 02/10/17 11:49 Bedside Glucose 173 mg/dl (70-99) 193 mg/dl (70-99) 225 mg/dl (70-99) Random Glucose 190 mg/dl (70-99) Recent Pertinent Medications The patient is currently receiving: * Basal insulin * Lantus 20 units SQ daily * Bolus insulin * NovoLog per scale Q4H * Goal Range: Low 140 mg/dL - High 180 mg/dL * Correction Factor: 20 mg/dL/unit * Nutritional / Prandial insulin: * NovoLog 3 units SQ Q4H (to cover carbs in tube feeds) * HOLD if tube feeds held Assessment & Plan ASSESSMENT: * See progress note from 02/08 for more background info, in short: * Pt receiving SQ insulin for hyperglycemia secondary to baseline DM ( outpatient regimen on hold),stress/infection,pressors, dextrose IVF, recent surgery, and mechanical ventilation * Patient has transitioned off of insulin drip yesterday, blood sugars still slightly above goal, will increase basal and prandial insulin at this time. PLAN FOR INPATIENT GLYCEMIC CONTROL: * INCREASE Basal insulin * Lantus 30 units SQ daily * Bolus insulin * NovoLog per scale Q4H * Goal Range: Low 140 mg/dL - High 180 mg/dL * Correction Factor: 20 mg/dL/unit * INCREASE Nutritional / Prandial insulin: * NovoLog 5 units SQ Q4H (to cover carbs in tube feeds) * HOLD if tube feeds held RECOMMENDATIONS FOR DISCHARGE: * A1c = 7.2%, continue home regimen. * Please note that the plan above was derived based on current level of insulin resistance and hospital stress. These recommendations are appropriate for inpatient admission only. Plan of care upon discharge will need to be reassessed to avoid potential outpatient hypo/hyperglycemia. Thank you.
--- NOTE | 2017-02-10 14:02 | Procedure Note ---
Procedure Note Procedure Date Feb 10, 2017. Central Line Procedure time out: side/site verified, patient ID confirmed, sterile procedure used Consent obtained: written Performed by: attending Indications: poor venous access, central drug admin., long-term access Prep: chlorhexadine prep, sterile drape, sterile procedures used Anesthesia: topical, lidocaine 1% without epi Central line lumen: triple Central line location: internal jugular (R) Additional details: ultrasound guidance, Selinger technique used, line sutured , good blood return Complications: none Patient tolerated procedure: well Post-procedure vital signs: reviewed and stable
--- NOTE | 2017-02-10 14:05 | Procedure Note ---
Procedure Note Procedure Date Feb 10, 2017. Procedure Description Procedure Name: Procedure: Bronchoscopy. Indication: Intermittent hypoxemia, bilateral lung infiltrates, suspected pneumonia. Sedation: Pre-existing propofol and fentanyl drip. Olympus via power was used for bronchoscopy. Patient is well sedated. Bronchoscope was inserted through the pre-existing endotracheal tube. There were moderate amount of secretions in the endotracheal tube. Left side was examined. Left upper lobe bronchus terminated status post lobectomy. Left lower lobe was clear of secretions. Right lung was examined. Right upper middle and lower lobes were clear of secretions. Mucosa was pink, not inflamed. I performed the entire procedure myself. Patient tolerated procedure well.
--- NOTE | 2017-02-10 14:42 | Progress Note ---
Internal Med Progress Note Date of Service: Feb 10, 2017. Provider Documentation: SUBJECTIVE: The patient was seen and Examined S/P Drainage of fluid collection from the back Remains stable on VENT Will try to extubate today OBJECTIVE: Vital Signs-as noted below Exam: General-Remains stable on VENT Sedated Eyes-normal ENT-normal Neck-Supple Lungs-decreased breath sound bilaterally With widespread crackles Heart-Regular,no murmur appreciated Abdomen-Benign,no masses,bowel sound present Extremities-Trace edema bilaterally Clear drainage from the back wound Neuro-Sedated on Vent Lab data as noted below. 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 and severe diabetic gastroparesis s/p gastric pacemaker; chronic pain syndrome on long-term opioids s/p intrathecal pump, HTN, H/O of seizure disorder - recently admitted for infected and leaking intrathecal pump with surgical repair and on long-term antibiotics - presents secondary to worsening back pain and worsening nausea/vomiting Acute Respiratory Failure :now on Vent Acute SOB this morning:Differential includes-Fluid overload,CHF,Pneumonia- Aspiration ,Narcotic induced ,exacerbation associated with lung cancer or even ARDS With change in mental status and decreased saturation of 70s Received 1 dose of Narcan,60mg IV Lasix ,CXR and blood tests and started on NRB ABG ordered and the patient is transferred to ICU for continued care Has been on IV Vanco,Cefepime and Clindamycin ID,Ortho and Pain therapist are on board Remains stable on VENT Will try to Extubate today Anemia Likely secondary to Ongoing infection Will transfuse 2 units of PRBC S/p 2 units of PRBC Hb increased to 8.6 S/P Intubation 02/07/17 Breathing got worse following surgery :Removal of Intrathecal Pain Pump and catheter; Application of Wound Vac on 02/07/17 Remains sedated on VENT Management as per Supervisor Cutting Department Possible Ongoing Infective process Remains afebrile and no Increase in WCCIntrathecal Pain Pump is removed PICC line is removed Ne central line inserted ID is on board Continue current medication Persistent Intrathecal Pump Leakage and Infection-Removed Left Paraspinal Abscess Was discharged on 01/31 - during that admission, he had an I&D and stopped CSF leakage He had a PICC line put in and was discharged on 6 weeks of Vancomycin Abdominal/Pelvis CT suggests a persistent abscess around 4.2cm Patient is now on Cefepime, Clindamycin, and Vancomycin Appreciate ID input Appreciate Pain management and Spine Surgery input S/P I&D 02/05/17::No CSF leakage ,Old collection drained S/P Removal of Intrathecal Pain Pump and catheter; Application of Wound Vac on 02/07/17 CSF fluid showed increased WCC ~2000,Gm stain is negative Consulted Wound Care-appreciate input ID following Continue Current antibiotic Leakage from the wound at the back Bilateral Lower Extremity Swelling Possibly related to low protein Added boost TID-Nutrition consulted US negative for any clot HTN Has been on BB and Amlodipine and Lisinopril Still on the upper side Increase BB to 50mg BID Possible Aspiration Pneumonia Patient has had issues with nausea/vomiting He presented with some shortness of breath issues CXR suggests right perihilar and medial right lung base opacities suggesting atelectasis or pneumonia Added Clindamycin for anaerobic coverage Now Intubated Anasarca Likely from low protein Received one dose of IV Lasix Add boost glucose control Persistent Nausea/Vomiting He has a gastric pacemaker in, unfortunately, he still has persistent n/v Received one dose of Emend Continue Zofran PRN Chronic Pain on Long-Term Opioids Would appreciate pain management input Currently on PO hydromorphone 4mg q3hrs PRN Will try to avoid IV narcotics Asking for more pain medicine -appreciate Pain therapist input Removal of Intrathecal Pain Pump and catheter; Application of Wound Vac on Insulin Dependent DM2 Currently on Lantus 12 units BID Insulin sliding scale Monitor blood sugars - he presented with hypoglycemia; now slightly hyperglycemic, we will monitor Has been started on IN infusion Hx. of Seizure Disorder continue Keppra DVT ppx Will start Lovenox 40 mg Daily starting at 6 PM this Evening FULL CODE Continue current care in ICU Vital Signs: Date Time Temp Pulse Resp B/P (MAP) Pulse Ox O2 Delivery O2 Flow Rate FiO2 02/10/17 14:34 40 02/10/17 14:00 37.1 76 16 128/74 (92) 100 Mechanical Ventilator 02/10/17 11:39 37.4 75 115/63 (80) 98 Mechanical Ventilator 40 02/10/17 11:39 Mechanical Ventilator 40 02/10/17 11:09 40 02/10/17 10:31 37.5 81 12 143/76 (98) 97 Mechanical Ventilator 02/10/17 10:26 37.4 86 15 141/70 (93) 98 Mechanical Ventilator 40 02/10/17 10:21 37.5 84 15 141/70 (93) 99 Mechanical Ventilator 40 02/10/17 10:16 37.4 85 14 144/74 (97) 99 Mechanical Ventilator 40 02/10/17 10:11 37.5 83 13 140/71 (94) 99 Mechanical Ventilator 40 02/10/17 10:06 37.4 85 11 135/68 (90) 89 Mechanical Ventilator 40 02/10/17 10:00 37.5 83 11 141/75 (97) 94 Mechanical Ventilator 40 02/10/17 09:56 37.5 83 15 151/80 (103) 97 Mechanical Ventilator 40 02/10/17 09:51 37.5 83 15 150/78 (102) 95 Mechanical Ventilator 40 02/10/17 09:46 37.5 83 13 152/80 (104) 95 Mechanical Ventilator 40 02/10/17 09:41 37.5 82 13 152/86 (108) 96 Mechanical Ventilator 40 02/10/17 09:38 37.5 83 15 156/83 (107) 96 Mechanical Ventilator 40 02/10/17 09:24 37.5 81 14 156/84 (108) 95 Mechanical Ventilator 40 02/10/17 09:00 37.3 86 14 170/94 (119) 98 Mechanical Ventilator 40 02/10/17 08:00 Mechanical Ventilator 40 02/10/17 08:00 37.3 79 15 142/75 (97) 100 Mechanical Ventilator 40 02/10/17 08:00 40 02/10/17 07:25 40 02/10/17 06:01 37.3 73 15 102/61 (75) 99 Mechanical Ventilator 40 02/10/17 05:31 37.3 72 15 108/61 (77) 100 02/10/17 05:01 37.2 71 15 105/61 (76) 99 02/10/17 04:59 40 02/10/17 04:07 40 02/10/17 04:07 Mechanical Ventilator 40 02/10/17 04:01 37.1 73 16 107/61 (76) 99 02/10/17 03:31 37.1 73 14 102/60 (74) 100 02/10/17 03:01 37.1 73 14 102/60 (74) 99 02/10/17 02:31 37.0 73 16 101/60 (74) 100 02/10/17 02:01 37.0 74 16 107/63 (78) 99 02/10/17 01:45 40 02/10/17 01:01 37.4 75 14 105/60 (75) 99 02/10/17 00:44 40 02/10/17 00:44 Mechanical Ventilator 40 02/10/17 00:31 37.5 79 14 116/67 (83) 99 02/10/17 00:01 37.7 88 17 143/81 (101) 91 02/09/17 23:31 37.7 82 16 134/74 (94) 100 02/09/17 23:01 37.8 84 12 125/76 (92) 100 02/09/17 23:00 40 02/09/17 22:01 38.1 89 12 150/78 (102) 100 Mechanical Ventilator 40 02/09/17 21:31 38.1 95 18 170/84 (112) 100 Mechanical Ventilator 40 02/09/17 21:01 38.1 98 20 166/80 (108) 93 Mechanical Ventilator 40 02/09/17 20:31 38.1 98 18 180/84 (116) 96 Mechanical Ventilator 40 02/09/17 20:04 Mechanical Ventilator 40 02/09/17 20:04 40 02/09/17 20:01 38.1 99 19 182/87 (118) 95 Mechanical Ventilator 40 02/09/17 19:31 38.0 97 19 183/87 (119) 96 Mechanical Ventilator 40 02/09/17 19:01 37.9 96 19 175/85 (115) 90 Mechanical Ventilator 40 02/09/17 18:02 40 02/09/17 18:00 37.7 95 19 167/86 (113) 95 Mechanical Ventilator 40 02/09/17 17:00 37.7 90 16 152/72 (98) 92 Mechanical Ventilator 40 02/09/17 16:31 37.6 91 17 159/77 (104) 96 02/09/17 16:00 40 02/09/17 16:00 Mechanical Ventilator 40 02/09/17 16:00 37.6 93 19 171/79 (109) 96 Lab Results: Results Past 24 Hours Test 02/09/17 16:13 02/09/17 20:13 02/10/17 00:25 02/10/17 04:29 Range/Units Bedside Glucose 224 257 244 173 70-99 mg/dl Test 02/10/17 07:44 02/10/17 08:03 02/10/17 11:49 Range/Units Bedside Glucose 193 225 70-99 mg/dl White Blood Count 5.17 4.8-10.8 K/uL Red Blood Count 3.10 4.7-6.1 M/uL Hemoglobin 8.7 14.0-18.0 g/dL Hematocrit 26.9 42-52 % Mean Corpuscular Volume 86.8 80-100 fL Mean Corpuscular Hemoglobin 28.1 25-34 pg Mean Corpuscular Hemoglobin Concent 32.3 32-36 g/dl RDW Standard Deviation 46.4 36.4-46.3 fL RDW Coefficient of Variation 14.8 11.5-14.5 % Platelet Count 155 130-400 K/uL Mean Platelet Volume 9.5 7.4-10.4 fL Sodium Level 139 136-145 mmol/L Potassium Level 3.8 3.5-5.1 mmol/L Chloride Level 103 98-107 mmol/L Carbon Dioxide Level 30 21-32 mmol/L Anion Gap 6.0 3-11 mmol/L Blood Urea Nitrogen 34 7-18 mg/dl Creatinine 1.80 0.60-1.40 mg/dl Est Creatinine Clear Calc Drug Dose 55.2 ml/min Estimated GFR () 49.4 Estimated GFR (Non- 42.6 BUN/Creatinine Ratio 18.7 10-20 Random Glucose 190 70-99 mg/dl Calcium Level 8.3 8.5-10.1 mg/dl Phosphorus Level 5.1 2.5-4.9 mg/dl Magnesium Level 1.9 1.8-2.4 mg/dl Total Bilirubin 0.3 0.2-1 mg/dl Aspartate Amino Transf (AST/SGOT) 16 15-37 U/L Alanine Aminotransferase (ALT/SGPT) 14 12-78 U/L Alkaline Phosphatase 84 45-117 U/L Total Protein 6.1 6.4-8.2 gm/dl Albumin 2.1 3.4-5.0 gm/dl Globulin 4.0 2.5-4.0 gm/dl Albumin/Globulin Ratio 0.5 0.9-2 Microbiology Results 02/10/17 Blood Culture, Received Pending 02/10/17 Blood Culture, Received Pending
[2017-02-10] MEDS ORDERED: INSULIN ASPART 100 UNITS/ML 3 ML PEN SC SCH (16:00)
[2017-02-10] MEDS: NYSTATIN SUSP 500,000 U/5 ML UDC PO SCH ×2 (17:00→21:52)
[2017-02-10] MEDS ORDERED: NALOXONE HCL 0.4 MG/1 ML VIAL/CARP ONE (17:11)
[2017-02-10] MEDS: ENOXAPARIN 40 MG/0.4 ML SYR SQ SCH (17:14)
[2017-02-10] MEDS ORDERED: NALOXONE HCL 0.4 MG/1 ML VIAL/CARP IV ONE (17:15)
[2017-02-10 17:37] LABS: ISTAT ALLEN TEST Pass; ISTAT ARTERIAL BLOOD GAS HCO3 26 meq/L (19-24); ISTAT ARTERIAL BLOOD GAS PCO2 36 mmHg (35-46); ISTAT ARTERIAL BLOOD GAS PO2 89 mmHg (80-95); ISTAT ARTERIAL BLOOD GAS pH 7.47 (7.35-7.45); ISTAT CARBON DIOXIDE 27 mEq/l (24-31); ISTAT DELIVERY SYSTEM Cannula; ISTAT SITE L Radial
[2017-02-10] MEDS ORDERED: FENTANYL CITRATE INJ 50 MCG/1 ML 2 ML VIAL ONE (17:53)
[2017-02-10] MEDS ORDERED: FENTANYL CITRATE INJ 50 MCG/1 ML 2 ML VIAL IV ONE (17:53)
[2017-02-10] MEDS ORDERED: FENTANYL CITRATE INJ 50 MCG/1 ML 2 ML VIAL IV PRN (18:00)
[2017-02-10] MEDS: LABETALOL HCL IV 5 MG/ML 20ML IV PRN (18:35)
[2017-02-10] MEDS: ACETAMINOPHEN IV 650 MG in EMPTY BAG 0 ML IV PRN (18:36)
[2017-02-10] MEDS: FENTANYL CITRATE INJ 50 MCG/1 ML 2 ML VIAL IV PRN ×3 (19:05→22:49)
[2017-02-10] MEDS: LEVALBUTEROL 1.25MG/0.5ML NEB INH SCH (20:37)
[2017-02-10] MEDS: IPRATROPIUM BROMIDE NEB SOLN 0.02% 2.5 ML VIAL INH SCH (20:37)
[2017-02-10] MEDS ORDERED: LEVETIRACETAM 250 MG TAB PO SCH (21:00)
[2017-02-10] MEDS: GABAPENTIN 600 MG TAB PO SCH (21:00)
[2017-02-10] MEDS: LEVETIRACETAM IV 750 MG in DEXTROSE 5% 100ML 100 ML IV SCH (22:29)
[2017-02-10] MEDS: METOPROLOL TARTRATE 1 MG/ML VIAL IV. SCH (22:29)
[2017-02-11] VITALS (23 sets, daily range): BP systolic 126–188; BP diastolic 68–101; PULSE 77–108; TEMP 36.9–37.9; O2SAT 90–100
[2017-02-11] MEDS: FENTANYL CITRATE INJ 50 MCG/1 ML 2 ML VIAL IV PRN ×4 (01:02→08:19)
[2017-02-11] MEDS: METOPROLOL TARTRATE 1 MG/ML VIAL IV. SCH ×5 (02:09→23:55)
[2017-02-11] MEDS: IPRATROPIUM BROMIDE NEB SOLN 0.02% 2.5 ML VIAL INH SCH ×4 (02:11→18:52)
[2017-02-11] MEDS: LEVALBUTEROL 1.25MG/0.5ML NEB INH SCH ×4 (02:11→18:52)
[2017-02-11] MEDS: INSULIN ASPART 100 UNITS/ML 3 ML PEN SC SCH ×10 (04:00→23:56)
[2017-02-11] MEDS: CLINDAMYCIN IV 600 MG in DEXTROSE 5% 50ML 50 ML IV SCH (04:09)
[2017-02-11] MEDS: CEFEPIME IV 2000 MG in DEXTROSE 5% 100ML IV SCH ×2 (04:09→16:21)
[2017-02-11] MEDS: LABETALOL HCL IV 5 MG/ML 20ML IV PRN (04:11)
[2017-02-11] MEDS ORDERED: [UNRECOGNIZED DRUG - REMARK] SCH (05:30)
[2017-02-11] MEDS ORDERED: [UNRECOGNIZED DRUG - REMARK] ONE (05:30)
[2017-02-11] MEDS: VANCOMYCIN INJ 1,250 MG in SODIUM CHLORIDE 0.9% 250ML 250 ML IV SCH (06:40)
[2017-02-11 06:47] LABS: CREATININE 1.9 mg/dl (0.60-1.40)
[2017-02-11] MEDS: INSULIN GLARGINE SOLOSTAR 100 UNITS/ML 3 ML PEN SC SCH (09:16)
--- NOTE | 2017-02-11 09:54 | Progress Note ---
Subjective Date of Service: Feb 11, 2017. Subjective Pt evaluation today including: conversation w/ patient, physical exam, chart review, lab review pt seen in followup, extubated but lethargic, on 1:1. All cultures to date this admission, blood csf, OR cultures negative to date. Previous admission grew S.aureus and has been on prolonged vanco. tmax 37.6, repeat cultures obtained yesterday. pending. tolerating abx. remains on broad spectrum. uto ros as pt remains lethargic. Problem List Medical Problems: (1) Acute kidney injury Status: Acute (2) Altered mental status Status: Acute (3) Anemia Status: Acute (4) Chronic pain Status: Acute (5) Dehydration Status: Acute (6) Dehydration Status: Acute (7) Dehydration Status: Acute (8) Dehydration Status: Acute (9) Diabetes mellitus with hyperglycemia Status: Acute (10) Failure of outpatient treatment Status: Acute (11) Hypomagnesemia Status: Acute (12) Hypomagnesemia Status: Acute (13) Intractable vomiting Status: Acute (14) Intractable vomiting Status: Acute (15) Intrathecal pump infection Status: Acute (16) Orthostatic hypotension Status: Acute (17) Pneumonia Status: Acute (18) Post-operative complication Status: Acute (19) Sepsis Status: Acute (20) Vomiting Status: Acute (21) Vomiting Status: Acute Objective Vital Signs Date Time Temp Pulse Resp B/P (MAP) Pulse Ox O2 Delivery O2 Flow Rate FiO2 02/11/17 07:04 98 18 98 Mask 10.0 02/11/17 06:40 104 02/11/17 06:01 37.4 101 0 150/82 (104) 97 Oxymask 10.0 02/11/17 05:01 100 0 156/79 (104) 95 Oxymask 10.0 02/11/17 04:37 95 Oxymask 10.0 02/11/17 04:01 37.4 103 0 182/99 (126) 100 Oxymask 10.0 02/11/17 03:01 37.5 102 173/89 (117) 96 Oxymask 10.0 02/11/17 02:11 101 14 95 Mask 10.0 50 02/11/17 02:09 96 159/77 02/11/17 02:01 37.6 101 159/77 (104) 95 Oxymask 10.0 02/11/17 01:01 37.6 107 177/89 (118) 90 Oxymask 10.0 02/11/17 00:41 92 Nasal Cannula 5.0 02/11/17 00:39 37.6 108 180/101 (127) Oxymask 10.0 02/11/17 00:01 37.4 106 188/93 (124) 91 Oxymask 10.0 02/10/17 23:01 37.1 102 176/99 (124) 93 Nasal Cannula 4.0 02/10/17 22:29 107 162/99 02/10/17 22:01 37.3 105 21 162/99 (120) 90 Nasal Cannula 4.0 02/10/17 21:01 37.5 110 20 173/101 (125) 93 Nasal Cannula 4.0 02/10/17 20:37 109 14 94 Nasal Cannula 3.0 50 02/10/17 20:15 93 Nasal Cannula 4.0 02/10/17 20:08 37.6 109 16 169/95 (119) 95 Nasal Cannula 4.0 02/10/17 19:16 37.8 107 19 169/91 (117) 95 Nasal Cannula 4.0 02/10/17 19:01 37.9 106 20 174/89 (117) 92 Nasal Cannula 4.0 02/10/17 18:40 37.8 107 19 167/93 (117) 96 Nasal Cannula 4.0 02/10/17 18:28 37.7 111 21 197/101 (133) Nasal Cannula 4.0 02/10/17 18:00 37.7 110 20 171/112 (131) 93 Nasal Cannula 4.0 02/10/17 16:19 93 Nasal Cannula 4.0 02/10/17 16:00 37.2 94 15 162/87 (112) 98 Nasal Cannula 4.0 02/10/17 14:34 40 02/10/17 14:00 37.1 76 16 128/74 (92) 100 Mechanical Ventilator 02/10/17 11:39 37.4 75 115/63 (80) 98 Mechanical Ventilator 40 02/10/17 11:39 Mechanical Ventilator 40 02/10/17 11:09 40 02/10/17 10:31 37.5 81 12 143/76 (98) 97 Mechanical Ventilator 02/10/17 10:26 37.4 86 15 141/70 (93) 98 Mechanical Ventilator 40 02/10/17 10:21 37.5 84 15 141/70 (93) 99 Mechanical Ventilator 40 02/10/17 10:16 37.4 85 14 144/74 (97) 99 Mechanical Ventilator 40 02/10/17 10:11 37.5 83 13 140/71 (94) 99 Mechanical Ventilator 40 02/10/17 10:06 37.4 85 11 135/68 (90) 89 Mechanical Ventilator 40 02/10/17 10:00 37.5 83 11 141/75 (97) 94 Mechanical Ventilator 40 02/10/17 09:56 37.5 83 15 151/80 (103) 97 Mechanical Ventilator 40 Physical Exam General Appearance: + pertinent finding (lethargic) Neck: supple Respiratory/Chest: lungs clear, normal breath sounds, no respiratory distress, + decreased breath sounds Cardiovascular: regular rate, rhythm, no edema Abdomen: soft Extremities: no pedal edema Skin: normal color Laboratory Results Item Value Date Time Gram Stain - Final Resulted 02/07/17 1345 Drainage-Deep Lumbar Gram Stain - Final Resulted 02/07/17 1345 Drainage-Deep Abdomen Gram Stain - Final Resulted 02/07/17 1015 Cerebral Spinal Fluid Gram Stain - Final Resulted 02/05/17 0826 Drainage-Deep Lumbar Gram Stain - Final Complete 02/03/17 1035 Incision Site Back Blood Culture - Final Complete 02/01/17 2221 Blood NO GROWTH Blood Culture - Final Complete 02/01/17 2150 Blood NO GROWTH Gram Stain - Final Resulted 02/07/17 1345 Drainage-Deep Lumbar Gram Stain - Final Resulted 02/07/17 1345 Drainage-Deep Abdomen Fungal Culture - Preliminary Resulted 02/07/17 1235 Cerebral Spinal Fluid NO YEAST OR FUNGUS ISOLATED - REPORT ... Gram Stain - Final Complete 02/07/17 1015 Cerebral Spinal Fluid Blood Culture - Preliminary Resulted 02/07/17 0949 Blood NO GROWTH TO DATE. Blood Culture - Preliminary Resulted 02/07/17 0943 Blood NO GROWTH TO DATE. Gram Stain - Final Complete 02/05/17 0826 Drainage-Deep Lumbar Last 24 Hours Test 02/10/17 11:49 02/10/17 16:16 02/10/17 17:26 02/10/17 20:41 Bedside Glucose 225 mg/dl 184 mg/dl 169 mg/dl Blood Gas Sample Site L Radial Bedside Blood Gas pH (LAB) 7.47 Bedside Blood Gas pCO2 (LAB) 36 mmHg Bedside Blood Gas pO2 (LAB) 89 mmHg Bedside Blood Gas HCO3 (LAB) 26 meq/L Bedside Blood Gas Total CO2 27 mEq/l Bedside Blood Gas Base Excess (LAB) 3.0 meq/L Bedside Blood Gas O2 Saturation 97.0 % Antonino Test Pass Oxygen Delivery Device Cannula Test 02/10/17 23:49 02/11/17 04:10 02/11/17 05:42 02/11/17 09:48 Bedside Glucose 204 mg/dl 161 mg/dl Creatinine 1.90 mg/dl Est Creatinine Clear Calc Drug Dose 53.4 ml/min Estimated GFR () 46.3 Estimated GFR (Non- 39.9 Vancomycin Level Trough 24.5 mcg/ml Assessment and Plan (1) Infection of intrathecal pump Assessment & Plan: continue vanco and cefepime for now, stop clinda. follow cultures.
--- NOTE | 2017-02-11 09:56 | Pain Management Progress Note ---
Pain Management Progress Note Date of Service Feb 11, 2017. Gabriele Aguilar is extubated and awake this morning. He is responding appropriately to commands. He is complaining of experiencing his typical neuropathic pain in the back and lower extremities as well as chest. He reports feeling agitated. Has episodes of tachycardia and hypertension. Response to IV boluses of fentanyl. Deep wound and CSF cultures remain negative. Objective Vital Signs: Last Vital Signs Documentation Date Time Temp Pulse Resp B/P (MAP) Pulse Ox O2 Delivery O2 Flow Rate FiO2 02/11/17 07:04 98 18 98 Mask 10.0 02/11/17 06:01 37.4 150/82 (104) 02/11/17 02:11 50 Physical Exam: Easily arousable. Oriented to person and recognizes that he is in the ICU. Follows commands and answers appropriately. Right lower quadrant abdominal wound has a wound VAC attached today. Inspection of the lumbar spine when demonstrates dressing to have some CSF drainage but appears to be decreasing. Laboratory Laboratory Findings 02/10/17 08:03 Assessment 1. Status post explantation of intrathecal catheter and pump due to CSF leak and infection. 2. As post-respiratory failure. 3. Experiencing acute opiate withdrawals. Recommendations 1. Recommend either continuous intravenous fentanyl or hydromorphone drip to minimize opiate withdrawal. 2. Recommended clonidine transdermal patch for minimizing subjective hyperactivity opiate withdrawal symptoms. 3. Recommend Klonopin or midazolam for anxiolysis. 4. Continue packing lumbar spine wound to minimize CSF leak.
[2017-02-11] MEDS ORDERED: CLONIDINE HCL 0.3 MG/24 HR TRANSDERM SYS TD SCH (10:00)
[2017-02-11] MEDS ORDERED: HYDROmorphone/NSS 100MG/100ML 100 ML IV SCH (10:00)
[2017-02-11 10:25] LABS: ISTAT ALLEN TEST Pass; ISTAT ARTERIAL BLOOD GAS HCO3 28 meq/L (19-24); ISTAT ARTERIAL BLOOD GAS PCO2 44 mmHg (35-46); ISTAT ARTERIAL BLOOD GAS PO2 78 mmHg (80-95); ISTAT ARTERIAL BLOOD GAS pH 7.42 (7.35-7.45); ISTAT CARBON DIOXIDE 30 mEq/l (24-31); ISTAT DELIVERY SYSTEM Other; ISTAT FIO2 0 %; ISTAT SITE R Radial
--- NOTE | 2017-02-11 10:42 | DIAGNOSTIC IMAGING REPORT ---
CHEST ONE VIEW PORTABLE CLINICAL HISTORY: Hypoxia COMPARISON STUDY: 02/10/2017 FINDINGS: The cardiac images so contours remain stable. The endotracheal tube has been removed. There is a right sided internal jugular central venous catheter with its tip projected in the superior vena cava. There is developing asymmetric pulmonary edema right greater than left. There are small bilateral pleural effusions.[ IMPRESSION: 1. Developing asymmetric pulmonary edema pattern right greater than left. Small pleural effusions are suspected. 2. Interval removal of the endotracheal tube and nasogastric tubes. Electronically signed by: Bruce Salamanca M.D. 02/11/2017 10:40 AM Dictated Date/Time: 02/11/2017 10:39 AM
[2017-02-11] MEDS: LEVETIRACETAM IV 750 MG in DEXTROSE 5% 100ML 100 ML IV SCH ×2 (10:55→22:36)
[2017-02-11] MEDS: NORMOSOL R 1,000 ML IV SCH ×2 (10:56→20:22)
[2017-02-11] MEDS: NYSTATIN SUSP 500,000 U/5 ML UDC PO SCH ×4 (10:56→21:04)
[2017-02-11 10:59] LABS: ALB/GLOB RATIO 0.5 (0.9-2); BUN/CREATININE RATIO 17.3 (10-20); CALCIUM 8.6 mg/dl (8.5-10.1); CREATININE 1.9 mg/dl (0.60-1.40); MAGNESIUM 1.8 mg/dl (1.8-2.4); PHOSPHORUS 3.6 mg/dl (2.5-4.9); POTASSIUM 3.1 mmol/L (3.5-5.1)
--- NOTE | 2017-02-11 11:39 | DIAGNOSTIC IMAGING REPORT ---
KUB CLINICAL HISTORY: Enteric tube placement. FINDINGS: An AP, portable, supine abdominal radiograph is correlated with abdominal CT dated 02/03/2017. An electronic device is again seen projecting over the left mid abdomen. An enteric tube has been placed. The tip projects over the distal stomach. Cholecystectomy clips are noted. There is no radiographic evidence of bowel obstruction. The bony structures appear intact. IMPRESSION: 1. An enteric tube has been placed. The tip projects over the distal stomach. 2. There is no radiographic evidence of bowel obstruction. Electronically signed by: Russell Ty M.D. 02/11/2017 11:38 AM Dictated Date/Time: 02/11/2017 11:37 AM
[2017-02-11] MEDS ORDERED: HEPARIN 25,000 UNIT/500ML D5W 500 ML IV PRN (12:00)
[2017-02-11] MEDS: CLONIDINE HCL 0.1 MG TAB PO SCH ×3 (12:03→23:55)
[2017-02-11 12:04] LABS: BASO % 0.2 %; BASO ABS # 0.01 K/uL (0-0.2); EOS % 4.5 %; HEMATOCRIT 26.2 % (42-52); IG% 0.4 %; LYMPH % 10.8 %; LYMPH ABS # 0.53 K/uL (1.2-3.4); MEAN CELL VOLUME 85.9 fL (80-100); MEAN CORPUSCULAR HEMOGLOBIN 28.5 pg (25-34); MEAN PLATELET VOLUME 9.6 fL (7.4-10.4); MONO % 13.4 %; NEUT % 70.7 %; PLATELET COUNT 171 K/uL (130-400); RED BLOOD COUNT 3.05 M/uL (4.7-6.1); WHITE BLOOD COUNT 4.92 K/uL (4.8-10.8)
[2017-02-11] MEDS: CEROVITE ADV FORMULA TAB PO SCH (12:04)
[2017-02-11] MEDS: GABAPENTIN 600 MG TAB PO SCH ×3 (12:04→20:46)
[2017-02-11 12:05] LABS: MEAN CORPUSCULAR HGB CONC 33.2 g/dl (32-36)
[2017-02-11] MEDS: AMLODIPINE BESYLATE 5 MG TAB PO SCH (12:05)
[2017-02-11] MEDS: DOCUSATE SODIUM/SENNA 50/8.6MG TAB PO SCH (12:05)
[2017-02-11] MEDS: VENLAFAXINE HCL XR 37.5 MG CAPXR PO SCH ×2 (12:06→12:09)
[2017-02-11] MEDS: LANSOPRAZOLE SOLUTAB 30 MG PO SCH (12:06)
[2017-02-11] MEDS: LISINOPRIL 10 MG TAB PO SCH (12:06)
[2017-02-11] MEDS: ASPIRIN 81 MG CHEW PO SCH (12:07)
[2017-02-11 12:14] LABS: INR 1.1 (0.9-1.1); PARTIAL THROMBOPLASTIN RATIO 1.2; PROTHROMBIN TIME (PATIENT) 11.9 SECONDS (9.0-12.0)
[2017-02-11 12:26] LABS: COMPLETE YES
[2017-02-11] MEDS ORDERED: POTASSIUM CHLORIDE 20 MEQ/15 ML UDC PO STA (12:34)
[2017-02-11] MEDS ORDERED: ICU ELECTROLYTE REPLACEMENT PROTOCOL PRN (12:45)
--- NOTE | 2017-02-11 13:05 | DIAGNOSTIC IMAGING REPORT ---
ULTRASOUND BILATERAL UPPER EXTREMITY VENOUS CLINICAL HISTORY: Hypoxia.. COMPARISON STUDY: No priors. TECHNIQUE: Real-time, grayscale, and color Doppler sonography of the deep veins of the right and left upper extremity is performed. Compression and augmentation were utilized. FINDINGS: There is no sonographic evidence of deep venous thrombosis identified in the right left upper extremity. The internal jugular, axillary, and brachial veins are patent and normally compressible bilateral. Normal venous waveforms and augmentation are seen within the subclavian veins bilaterally. The cephalic and basilic veins are clear in both arms. The visualized radial and ulnar veins are patent bilaterally. Portions of the right subclavian and internal jugular veins were not well visualized due to overlying dressing. IMPRESSION: There is no sonographic evidence of deep venous thrombosis identified in the right or left upper extremity. Electronically signed by: Russell Ty M.D. 02/11/2017 1:04 PM Dictated Date/Time: 02/11/2017 1:02 PM
[2017-02-11] MEDS: HEPARIN 25,000 UNIT/500ML D5W 500 ML IV PRN (13:06)
--- NOTE | 2017-02-11 13:06 | DIAGNOSTIC IMAGING REPORT ---
ULTRASOUND BILATERAL LOWER EXTREMITY VENOUS CLINICAL HISTORY: Hypoxia.. COMPARISON STUDY: Bilateral lower extremity venous ultrasound dated 02/04/2017. TECHNIQUE: Real-time, grayscale, and color Doppler sonography of the deep veins of the right and left lower extremity was performed from the inguinal crease to the calf. Compression and augmentation were utilized. FINDINGS: There is no sonographic evidence of deep venous thrombosis identified in the right or left lower extremity. The common femoral, superficial femoral, and popliteal veins are patent and normally compressible bilaterally. The greater saphenous vein and the profunda femoris vein at the junction with the common femoral vein are clear in both legs. The visualized calf veins are patent bilaterally. IMPRESSION: There is no sonographic evidence of deep venous thrombosis identified in the right or left lower extremity. Electronically signed by: Russell Ty M.D. 02/11/2017 1:04 PM Dictated Date/Time: 02/11/2017 1:04 PM
[2017-02-11] MEDS ORDERED: NURSING VERBAL MED ORDER ONE (13:15)
[2017-02-11] MEDS ORDERED: ACETAMINOPHEN SOLN 500 MG/15.62 ML UDP PO ONE ×2 (13:30→14:00)
[2017-02-11] MEDS ORDERED: PEPTAMEN INTENSE VHP 1000ML BAG NG PRN (15:00)
--- NOTE | 2017-02-11 15:07 | Pharmacy Progress Note ---
Pharmacy Progress Note Date of Service Feb 11, 2017. Progress Note Glycemic Control: * Tube feeds held yesterday evening * Per ICU rounds, plan to restart them at 15 cc/hr @1530 * Increase in basal insulin yesterday seems to be appropriate at this time, both BSGs today are <180 mg/dL * Continue current regimen and reassess in the AM Antibiotics: * Scr has spike to 1.9 - Vancomycin level elevated but dose given at 0600 this AM * Hold further Vancomycin doses and recheck level tomorrow @1600 * ~36 hours should be safe to re-dose patient unless renal function worsens Thank you for engaging the clinical pharmacy consult service in the care of this patient. Please let us know if we can be of further assistance.
--- NOTE | 2017-02-11 15:34 | Critical Care Progress Note ---
Critical Care Progress Note Date of Service Feb 11, 2017. ICU Day ICU Day Number: [address] Sol Subjective The patient was seen and examined at bedside. Pt is sedated on Fentanyl, not answering too many questions. Continues to have back pain. Plan of care was described to the patient and all questions were answered. ROS: No chest pain, no SOB, no dyspnea on exertion, no palpitations, no fevers, no chills, no nausea, no vomiting, no diarrhea, no dysuria, no rash. Objective General Appearance: Well nourished, no distress. Pt is drowsy, likely 2/2 to narcotics. Eyes: PERRLA, no discharge, EOMI, 2 mm in size ENT: normal ear exam, normal nasal exam, normal mouth exam Neck: normal range of motion, no tenderness, trachea midline Respiratory: CTA anteriorly. Cardiovasular: regular rate/rhythm, normal S1S2, normal peripheral pulses Abdomen: non tender, no rebound, no masses, right lower quadrant incision with VAC dressing application Back: Lumbar incision dressing is dry which is improvement. Upper Extremities: no edema, no deformity, can barely lift arm to command. Lower Extremities: no edema, no deformity Neuro: moves spontaneously all 4 extremities, sedated on Fentanyl, Pt has almost inaudible speech. Current SOFA Score SOFA Score Response (Comments) Value Platelets (x10) > 150 0 Bilirubin (mg/dL) < 1.2 0 Ashvin Coma Score 15 0 Level of Hypotension No Hypotension 0 Creatinine (mg/dL) 1.2 - 1.9 1 Total 1 Assessment & Plan 51M with a PMHx of non small cell lung CA s/p resection and chemo (not completed ), intrathecal pump for chronic back pain p/w back pain two days after being [place] [facility] [place] [facility] [place] P[place] line for an MSSA infection. The thecal insertion site was found to have an abscess, CSF studies showed an increased WBC count. Pt is being treated for a suspected CSF infection. Intrathecal pump was removed and abscess was drained. Pt was intubated on 02/07/17 for encephalopathy and extubated on 02/10/17. PICC line was removed on 02/10/17 and a triple lumen IJ line was placed. Pt remains on Abx. Pain control remains an issue. We are starting NG tube feeds on 02/11/17. Neuro: * AAOx3 but weak. * Pt was intubated on 02/07 for metabolic encephalopathy 2/2 to sepsis and extubated on 02/10/17. CT Scan of head was normal. * Pain control with Dilaudid drip starting at 1.5mg /hr (titrated down to 0.5 by end of day) + Clonidine 0.1mg Q6H. * Per Ortho pt must lay supine to reduce pain (this will however increase his aspiration risk). * Neuropathic Pain: Neurontin 600mg PO TID. * Mood: c/w Venlafaxine 37.5mg daily. * Seizures: c/w Keppra 750mg IV BID. CV - * EKG from 02/01/17 was normal sinus rhythm. * HTN: c/w Amlodipine 10mg daily, Lisinopril 10mg daily + restarting Lopressor IV 5mg Q4H Resp - * Pt has a new oxygen requirement of 10L/min on Oxymask. We originally suspected Aspiration Pneumonia however bronchoscopy over the weekend showed no changes. * X-ray today showed 'developing asymmetric pulmonary edema pattern right greater than left. Small pleural effusions are suspected.' * Pt's ABG shows that he is hypoxic and retaining, we cannot rule out PE, UE and LE dopplers were negative. He did not complete his course of treatment for Lung CA. We are starting a therapeutic Hep Drip empirically. CT for PE is contraindicated due to the pt's IVAN. We can consider a V/Q scan. Pt is extremely high risk for DVTs. * Xopenex / Ipratropium Q6H Renal/ - * IVAN: Creatinine elevated to 1.9, possibly related to 2 units PRBCs received Saturday business intern. * Will start Normosol 100mls/hr * - 1.7L to date GI/Diet: * Patient does not have enough energy to eat or take meds, we are placing an NG Core Safe tube and starting Peptamen tube feeds at 15mls/hr. * Gastroparesis with Gastric Stimulator: Pt has been having frequent BM, obstruction is not an issue at present. * GI Proph: Lansoprazole 30mg PO daily. Endo: * Blood Sugars running high, will start insulin sliding scale w carb coverage. * HBA1C was 7.2 in mid January. * Electrolytes: Na+ 143, K+ 3.1. * Pt was given 40meq KCl PO. Heme: * Hgb 8.7 s/p 2 units PRBC, Platelets 155 WNL. * DVT Proph (extremely high risk): Hep Drip as above. ID: * Febrile at 2am and at noon today, WBC count normal. * ID on board, likely source for sepsis was the intrathecal port (now removed), continuing Vanco (Day#10) and Cefepime (Day#10), stop Clindamycin today 2016. * CSF and Blood cultures negative to date. * Pt given 1g Tylenol for fever. MSK - * Chronic back pain control as above. * PT and OT on board. Full Code Resident Physician Supervision Note: Dr. Brand was resident physician during care of patient. I separately evaluated patient and did history and exam. I discussed the case with the resident and generally agree with the findings and plan. Patient has a moderate well's score, unable to obtain CT scans this time due to elevated creatinine and EKG I, him. Treatment with heparin for possible PE in the setting of hypoxic respiratory failure. VQ scan was likely be nondiagnostic. Patient's mental status continues to wax and wane with moments of great clarity, however then he appears to trail off. Antibiotic recommendations per infectious disease. I have personally spent 40 minutes of critical care time in the direct management of this patient. This is a life/limb threatening event. This includes time spent evaluating patient, direct bedside care, chart review, placing orders, interpretation of diagnostic studies, discussion with consultants, patient, and family members, as well as other required patient management activities. This time is exclusive of all separately billable procedures, and teaching time and separate from and in addition to any other critical care service time. Documented By: Jeff Sol DO TUOLUMNE II Score Date Score Was Generated: Feb 09, 2017 Consults & Procedures Consultants: Anesthesia Critical care Infectious disease Pain Management Wound Care Ortho Procedures: Discontinuation of intrathecal pump Intubation on 02/07 Extubation on 02/10 IJ Triple Lumen insertion on 02/10 PICC line removal on 02/10 Data Medications: Current Inpatient Medications Medications (Trade) Dose Ordered Sig/Cal Route Start Time Stop Time Status Last Admin Dose Admin Glucose (Glucose 40% Gel) 15-30 GRAMS 15 GRAMS... UD PRN PO 02/02/17 03:45 03/04/17 03:44 Glucose (Glucose Chew Tab) 4-8 Tablets 4 Tabl... UD PRN PO 02/02/17 03:45 03/04/17 03:44 Dextrose (Dextrose 50% 50ML Syringe) 25-50ML OF 50% DW IV FOR... UD PRN IV 02/02/17 03:45 03/04/17 03:44 02/08/17 00:16 25 ML Glucagon (Glucagon Inj) 1 mg UD PRN SQ 02/02/17 03:45 03/04/17 03:44 Folic Acid (Folvite Tab) 1 mg QAM PO 02/02/17 09:00 03/04/17 08:59 02/11/17 12:07 1 MG Venlafaxine HCl (effeXOR EXTENDED REL CAP) 37.5 mg QAM PO 02/02/17 09:00 03/04/17 08:59 02/10/17 08:14 37.5 MG Ipratropium Cummaquid (Atrovent 0.02% 0.5MG/2.5ML Neb) 0.5 mg Q4H PRN INH 02/02/17 04:00 03/04/17 03:59 Levalbuterol (Xopenex 1.25MG/ 0.5ML Neb) 1.25 mg Q4H PRN INH 02/02/17 04:00 03/04/17 03:59 Cefepime HCl (Consult) 1 ea UD PRN N/A 02/02/17 04:45 03/04/17 04:44 Vancomycin HCl (Consult) 1 ea UD PRN N/A 02/02/17 04:45 03/04/17 04:44 Senna/Docusate Sodium (Senokot S Tab) 1 tab QAM PO 02/02/17 09:00 03/04/17 08:59 02/11/17 12:05 1 TAB Heparin Sodium (Porcine) (Heparin 10 Unit/ ml 5 ml Flush) 5 ml PRN PRN FLUSH 02/03/17 00:30 03/05/17 00:29 02/04/17 17:30 5 ML Ondansetron HCl (Zofran Inj) 4 mg Q6H PRN IV 02/03/17 02:45 03/05/17 02:44 02/05/17 02:05 4 MG Promethazine HCl 12.5 mg/Sodium Chloride 50.5 ml @ 204 mls/hr Q6H PRN IV 02/03/17 02:45 03/05/17 02:44 02/07/17 02:35 204 MLS/HR Lorazepam (Ativan Inj) 0.25 mg Q6H PRN IV 02/03/17 06:00 03/05/17 05:59 02/05/17 22:34 0.25 MG Amlodipine Besylate (Norvasc Tab) 10 mg DAILY PO 02/04/17 09:00 03/04/17 08:59 02/11/17 12:05 10 MG Acetaminophen 650 mg/Empty Bag 65 ml @ 260 mls/hr Q6H PRN IV 02/07/17 02:30 03/09/17 02:29 02/10/17 18:36 260 MLS/HR Miscellaneous Information (Consult Glycemic Management Pharmacy) 1 ea UD PRN N/A 02/07/17 08:45 03/09/17 08:44 Lisinopril (Zestril Tab) 10 mg QAM PO 02/10/17 09:00 03/06/17 08:59 02/11/17 12:06 10 MG Insulin Aspart (novoLOG ASPART) SLIDING SCALE Q4 SC 02/09/17 12:00 03/11/17 11:59 02/11/17 00:00 2 UNITS Labetalol HCl (Normodyne IV) 10 mg ONE PRN IV 02/09/17 16:15 03/11/17 16:14 02/11/17 04:11 10 MG Insulin Glargine (Lantus Solostar Pen) 30 units DAILY SC 02/10/17 09:00 03/12/17 08:59 02/11/17 09:16 30 UNITS Cefepime HCl 2000 mg/Dextrose 112.5 ml @ 225 mls/hr Q12@0400,1600 IV 02/11/17 04:00 02/11/17 23:59 02/11/17 04:09 225 MLS/HR Aspirin (Aspirin Chew) 81 mg QAM PO 02/11/17 09:00 03/11/17 08:59 02/11/17 12:07 81 MG Lansoprazole (Prevacid Solutab) 30 mg DAILY PO 02/11/17 09:00 03/11/17 13:44 02/11/17 12:06 30 MG Multivitamins/ Minerals (Multivitamin W/ Minerals Tab) 1 tab QAM PO 02/11/17 09:00 03/13/17 08:59 02/11/17 12:04 1 TAB Gabapentin (Neurontin Tab) 600 mg TID PO 02/10/17 21:00 03/12/17 20:59 02/11/17 12:04 600 MG Nystatin (Mycostatin Susp) 5 ml QID PO 02/10/17 17:00 02/20/17 16:59 02/11/17 12:03 5 ML Ipratropium Cummaquid (Atrovent 0.02% 0.5MG/2.5ML Neb) 0.5 mg Q6R INH 02/10/17 21:00 03/12/17 20:59 02/11/17 14:14 0.5 MG Levalbuterol (Xopenex 1.25MG/ 0.5ML Neb) 1.25 mg Q6R INH 02/10/17 21:00 03/12/17 20:59 02/11/17 14:14 1.25 MG Levetiracetam 750 mg/Dextrose 107.5 ml @ 440 mls/hr Q12H IV 02/10/17 22:00 03/12/17 21:59 02/11/17 10:55 440 MLS/HR Clonidine HCl (Kdghqsil-Ksw-6 0.3mg/24hr Patch) 1 patch CQWK TD 02/11/17 10:00 03/13/17 09:59 Miscellaneous (Remove Clonidine Patch) 1 ea Q7D@0959 N/A 02/18/17 09:59 03/20/17 09:58 Miscellaneous Information (Check Clonidine Patch Placement) 1 ea QS N/A 02/11/17 16:00 03/13/17 15:59 Hydromorphone HCl 100 ml @ 1.5 mls/hr Q24H IV 02/11/17 10:00 02/25/17 09:59 02/11/17 10:55 1.5 MLS/HR Parenteral Electrolyte Solution 1,000 ml @ 100 mls/hr Q10H IV 02/11/17 10:00 11/8/17 09:59 02/11/17 10:56 100 MLS/HR Clonidine HCl (Catapres Tab) 0.1 mg Q6 PO 02/11/17 12:00 02/12/17 06:01 02/11/17 12:03 0.1 MG Heparin Sodium/ Dextrose 500 ml @ 30 mls/hr [id number] PRN IV 02/11/17 12:00 03/13/17 11:59 02/11/17 13:06 30 MLS/HR Miscellaneous Information ( Icu Electrolyte Replacement Protocol) 1 ea per protocol PRN N/A 02/11/17 12:45 02/18/17 12:44 Insulin Aspart (novoLOG ASPART) SLIDING SCALE Q4 SC 02/11/17 16:00 03/13/17 15:59 Metoprolol Tartrate (Lopressor Iv) 5 mg Q4 IV. 02/11/17 16:00 03/13/17 15:59 UNV Enteral Nutritional Formula (Peptamen Intense VHP) 15 ml Q1H NG 02/11/17 15:00 03/13/17 14:59 UNV Vital Signs: Date Time Temp Pulse Resp B/P (MAP) Pulse Ox O2 Delivery O2 Flow Rate FiO2 02/11/17 14:16 87 12 97 Mask 10.0 02/11/17 12:00 Oxymask 10.0 02/11/17 12:00 37.6 98 13 173/94 (120) 100 Oxymask 10.0 02/11/17 10:00 98 22 165/89 (114) 95 Oxymask 10.0 02/11/17 08:00 Mask 02/11/17 08:00 37.9 102 12 186/95 (125) 93 Oxymask 10.0 02/11/17 08:00 96 Oxymask 10.0 02/11/17 07:04 98 18 98 Mask 10.0 02/11/17 06:40 104 02/11/17 06:01 37.4 101 0 150/82 (104) 97 Oxymask 10.0 02/11/17 05:01 100 0 156/79 (104) 95 Oxymask 10.0 02/11/17 04:37 95 Oxymask 10.0 02/11/17 04:01 37.4 103 0 182/99 (126) 100 Oxymask 10.0 02/11/17 03:01 37.5 102 173/89 (117) 96 Oxymask 10.0 02/11/17 02:11 101 14 95 Mask 10.0 50 02/11/17 02:09 96 159/77 02/11/17 02:01 37.6 101 159/77 (104) 95 Oxymask 10.0 02/11/17 01:01 37.6 107 177/89 (118) 90 Oxymask 10.0 02/11/17 00:41 92 Nasal Cannula 5.0 02/11/17 00:39 37.6 108 180/101 (127) Oxymask 10.0 02/11/17 00:01 37.4 106 188/93 (124) 91 Oxymask 10.0 02/10/17 23:01 37.1 102 176/99 (124) 93 Nasal Cannula 4.0 02/10/17 22:29 107 162/99 02/10/17 22:01 37.3 105 21 162/99 (120) 90 Nasal Cannula 4.0 02/10/17 21:01 37.5 110 20 173/101 (125) 93 Nasal Cannula 4.0 02/10/17 20:37 109 14 94 Nasal Cannula 3.0 50 02/10/17 20:15 93 Nasal Cannula 4.0 02/10/17 20:08 37.6 109 16 169/95 (119) 95 Nasal Cannula 4.0 02/10/17 19:16 37.8 107 19 169/91 (117) 95 Nasal Cannula 4.0 02/10/17 19:01 37.9 106 20 174/89 (117) 92 Nasal Cannula 4.0 02/10/17 18:40 37.8 107 19 167/93 (117) 96 Nasal Cannula 4.0 02/10/17 18:28 37.7 111 21 197/101 (133) Nasal Cannula 4.0 02/10/17 18:00 37.7 110 20 171/112 (131) 93 Nasal Cannula 4.0 02/10/17 16:19 93 Nasal Cannula 4.0 02/10/17 16:00 37.2 94 15 162/87 (112) 98 Nasal Cannula 4.0 Laboratory Results: Last 24 Hours Test 02/10/17 16:16 02/10/17 17:26 02/10/17 20:41 02/10/17 23:49 Bedside Glucose 184 mg/dl 169 mg/dl 204 mg/dl Blood Gas Sample Site L Radial Bedside Blood Gas pH (LAB) 7.47 Bedside Blood Gas pCO2 (LAB) 36 mmHg Bedside Blood Gas pO2 (LAB) 89 mmHg Bedside Blood Gas HCO3 (LAB) 26 meq/L Bedside Blood Gas Total CO2 27 mEq/l Bedside Blood Gas Base Excess (LAB) 3.0 meq/L Bedside Blood Gas O2 Saturation 97.0 % Antonino Test Pass Oxygen Delivery Device Cannula Test 02/11/17 04:10 02/11/17 05:42 02/11/17 09:56 02/11/17 10:12 Bedside Glucose 161 mg/dl Creatinine 1.90 mg/dl 1.90 mg/dl Est Creatinine Clear Calc Drug Dose 53.4 ml/min 53.4 ml/min Estimated GFR () 46.3 46.3 Estimated GFR (Non- 39.9 39.9 Vancomycin Level Trough 24.5 mcg/ml White Blood Count 4.92 K/uL Red Blood Count 3.05 M/uL Hemoglobin 8.7 g/dL Hematocrit 26.2 % Mean Corpuscular Volume 85.9 fL Mean Corpuscular Hemoglobin 28.5 pg Mean Corpuscular Hemoglobin Concent 33.2 g/dl Platelet Count 171 K/uL Mean Platelet Volume 9.6 fL Neutrophils (%) (Auto) 70.7 % Lymphocytes (%) (Auto) 10.8 % Monocytes (%) (Auto) 13.4 % Eosinophils (%) (Auto) 4.5 % Basophils (%) (Auto) 0.2 % Neutrophils # (Auto) 3.48 K/uL Lymphocytes # (Auto) 0.53 K/uL Monocytes # (Auto) 0.66 K/uL Eosinophils # (Auto) 0.22 K/uL Basophils # (Auto) 0.01 K/uL RDW Standard Deviation 44.3 fL RDW Coefficient of Variation 14.1 % Immature Granulocyte % (Auto) 0.4 % Immature Granulocyte # (Auto) 0.02 K/uL Red Blood Cell Morphology Unremarkable Prothrombin Time 11.9 SECONDS Prothromb Time International Ratio 1.1 Activated Partial Thromboplast Time 30.4 SECONDS Partial Thromboplastin Ratio 1.2 Sodium Level 143 mmol/L Potassium Level 3.1 mmol/L Chloride Level 107 mmol/L Carbon Dioxide Level 29 mmol/L Anion Gap 7.0 mmol/L Blood Urea Nitrogen 33 mg/dl BUN/Creatinine Ratio 17.3 Random Glucose 190 mg/dl Calcium Level 8.6 mg/dl Phosphorus Level 3.6 mg/dl Magnesium Level 1.8 mg/dl Total Bilirubin 0.3 mg/dl Aspartate Amino Transf (AST/SGOT) 26 U/L Alanine Aminotransferase (ALT/SGPT) 24 U/L Alkaline Phosphatase 87 U/L Total Protein 6.6 gm/dl Albumin 2.3 gm/dl Globulin 4.3 gm/dl Albumin/Globulin Ratio 0.5 Blood Gas Sample Site R Radial Bedside Blood Gas pH (LAB) 7.42 Bedside Blood Gas pCO2 (LAB) 44 mmHg Bedside Blood Gas pO2 (LAB) 78 mmHg Bedside Blood Gas HCO3 (LAB) 28 meq/L Bedside Blood Gas Total CO2 30 mEq/l Bedside Blood Gas Base Excess (LAB) 4.0 meq/L Bedside Blood Gas O2 Saturation 95.0 % Antonino Test Pass Oxygen Delivery Device Other Bedside FiO2 0 % Resident Involvement: Resident Care Provided Care Provided: Adult Hospital Medicine
[2017-02-11] MEDS: CHECK CLONIDINE PATCH PLACEMENT SCH (16:00)
--- NOTE | 2017-02-11 18:00 | Progress Note ---
Internal Med Progress Note Date of Service: Feb 11, 2017. Provider Documentation: SUBJECTIVE: The patient was seen and Examined S/P Drainage of fluid collection from the back S/P Extubation Generally weak OBJECTIVE: Vital Signs-as noted below Exam: General-Minimal distress at rest Eyes-normal ENT-normal Neck-Supple Lungs-decreased breath sound bilaterally With widespread crackles Heart-Regular,no murmur appreciated Abdomen-Benign,no masses,bowel sound present Extremities-Trace edema bilaterally Clear drainage from the back wound Neuro-Sedated on Vent Lab data as noted below. 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 and severe diabetic gastroparesis s/p gastric pacemaker; chronic pain syndrome on long-term opioids s/p intrathecal pump, HTN, H/O of seizure disorder - recently admitted for infected and leaking intrathecal pump with surgical repair and on long-term antibiotics - presents secondary to worsening back pain and worsening nausea/vomiting Acute Respiratory Failure :S/P Extubation Acute SOB this morning:Differential includes-Fluid overload,CHF,Pneumonia- Aspiration ,Narcotic induced ,exacerbation associated with lung cancer or even ARDS With change in mental status and decreased saturation of 70s Received 1 dose of Narcan,60mg IV Lasix ,CXR and blood tests and started on NRB ABG ordered and the patient is transferred to ICU for continued care Has been on IV Vanco,Cefepime and Clindamycin ID,Ortho and Pain therapist are on board Generally weal and lethargic Anemia Likely secondary to Ongoing infection Will transfuse 2 units of PRBC S/p 2 units of PRBC Hb increased to 8.7-stable Possible Ongoing Infective process Remains afebrile and no Increase in WCC, Intrathecal Pain Pump is removed PICC line is removed New central line inserted ID is on board Continue current antibiotics Persistent Intrathecal Pump Leakage and Infection-Removed Left Paraspinal Abscess Was discharged on 01/31 - during that admission, he had an I&D and stopped CSF leakage He had a PICC line put in and was discharged on 6 weeks of Vancomycin Abdominal/Pelvis CT suggests a persistent abscess around 4.2cm Patient is now on Cefepime, Clindamycin, and Vancomycin Appreciate ID input Appreciate Pain management and Spine Surgery input S/P I&D 02/05/17::No CSF leakage ,Old collection drained S/P Removal of Intrathecal Pain Pump and catheter; Application of Wound Vac on 02/07/17 CSF fluid showed increased WCC ~2000,Gm stain is negative Consulted Wound Care-appreciate input ID following Continue Current antibiotic Leakage from the wound at the back -decreased Bilateral Lower Extremity Swelling Possibly related to low protein Added boost TID-Nutrition consulted US negative for any clot HTN Has been on BB and Amlodipine and Lisinopril Still on the upper side Increase BB to 50mg BID Possible Aspiration Pneumonia Patient has had issues with nausea/vomiting He presented with some shortness of breath issues CXR suggests right perihilar and medial right lung base opacities suggesting atelectasis or pneumonia Added Clindamycin for anaerobic coverage Anasarca Likely from low protein Received one dose of IV Lasix Add boost glucose control Persistent Nausea/Vomiting He has a gastric pacemaker in, unfortunately, he still has persistent n/v Received one dose of Emend Continue Zofran PRN Chronic Pain on Long-Term Opioids Would appreciate pain management input Currently on PO hydromorphone 4mg q3hrs PRN Will try to avoid IV narcotics Asking for more pain medicine -appreciate Pain therapist input Removal of Intrathecal Pain Pump and catheter Insulin Dependent DM2 Currently on Lantus 12 units BID Insulin sliding scale Monitor blood sugars - he presented with hypoglycemia; now slightly hyperglycemic, we will monitor Has been started on IN infusion Hx. of Seizure Disorder continue Keppra DVT ppx Will start Lovenox 40 mg Daily starting at 6 PM this Evening FULL CODE Continue current care in ICU Vital Signs: Date Time Temp Pulse Resp B/P (MAP) Pulse Ox O2 Delivery O2 Flow Rate FiO2 02/11/17 16:00 Oxymask 10.0 02/11/17 16:00 37.0 82 12 146/76 (99) 95 Oxymask 10.0 02/11/17 14:16 87 12 97 Mask 10.0 02/11/17 14:00 89 12 167/88 (114) 98 Oxymask 10.0 02/11/17 12:00 Oxymask 10.0 02/11/17 12:00 37.6 98 13 173/94 (120) 100 Oxymask 10.0 02/11/17 10:00 98 22 165/89 (114) 95 Oxymask 10.0 02/11/17 08:00 Mask 02/11/17 08:00 37.9 102 12 186/95 (125) 93 Oxymask 10.0 02/11/17 08:00 96 Oxymask 10.0 02/11/17 07:04 98 18 98 Mask 10.0 02/11/17 06:40 104 02/11/17 06:01 37.4 101 0 150/82 (104) 97 Oxymask 10.0 02/11/17 05:01 100 0 156/79 (104) 95 Oxymask 10.0 02/11/17 04:37 95 Oxymask 10.0 02/11/17 04:01 37.4 103 0 182/99 (126) 100 Oxymask 10.0 02/11/17 03:01 37.5 102 173/89 (117) 96 Oxymask 10.0 02/11/17 02:11 101 14 95 Mask 10.0 50 02/11/17 02:09 96 159/77 02/11/17 02:01 37.6 101 159/77 (104) 95 Oxymask 10.0 02/11/17 01:01 37.6 107 177/89 (118) 90 Oxymask 10.0 02/11/17 00:41 92 Nasal Cannula 5.0 02/11/17 00:39 37.6 108 180/101 (127) Oxymask 10.0 02/11/17 00:01 37.4 106 188/93 (124) 91 Oxymask 10.0 02/10/17 23:01 37.1 102 176/99 (124) 93 Nasal Cannula 4.0 02/10/17 22:29 107 162/99 02/10/17 22:01 37.3 105 21 162/99 (120) 90 Nasal Cannula 4.0 02/10/17 21:01 37.5 110 20 173/101 (125) 93 Nasal Cannula 4.0 02/10/17 20:37 109 14 94 Nasal Cannula 3.0 50 02/10/17 20:15 93 Nasal Cannula 4.0 02/10/17 20:08 37.6 109 16 169/95 (119) 95 Nasal Cannula 4.0 02/10/17 19:16 37.8 107 19 169/91 (117) 95 Nasal Cannula 4.0 02/10/17 19:01 37.9 106 20 174/89 (117) 92 Nasal Cannula 4.0 02/10/17 18:40 37.8 107 19 167/93 (117) 96 Nasal Cannula 4.0 02/10/17 18:28 37.7 111 21 197/101 (133) Nasal Cannula 4.0 02/10/17 18:00 37.7 110 20 171/112 (131) 93 Nasal Cannula 4.0 Lab Results: Results Past 24 Hours Test 02/10/17 20:41 02/10/17 23:49 02/11/17 04:10 02/11/17 05:42 Range/Units Bedside Glucose 169 204 161 70-99 mg/dl Creatinine 1.90 0.60-1.40 mg/dl Est Creatinine Clear Calc Drug Dose 53.4 ml/min Estimated GFR () 46.3 Estimated GFR (Non- 39.9 Vancomycin Level Trough 24.5 SEE COMMENT mcg/ml Test 02/11/17 09:56 02/11/17 10:12 02/11/17 12:16 02/11/17 16:27 Range/Units White Blood Count 4.92 4.8-10.8 K/uL Red Blood Count 3.05 4.7-6.1 M/uL Hemoglobin 8.7 14.0-18.0 g/dL Hematocrit 26.2 42-52 % Mean Corpuscular Volume 85.9 80-100 fL Mean Corpuscular Hemoglobin 28.5 25-34 pg Mean Corpuscular Hemoglobin Concent 33.2 32-36 g/dl Platelet Count 171 130-400 K/uL Mean Platelet Volume 9.6 7.4-10.4 fL Neutrophils (%) (Auto) 70.7 % Lymphocytes (%) (Auto) 10.8 % Monocytes (%) (Auto) 13.4 % Eosinophils (%) (Auto) 4.5 % Basophils (%) (Auto) 0.2 % Neutrophils # (Auto) 3.48 1.4-6.5 K/uL Lymphocytes # (Auto) 0.53 1.2-3.4 K/uL Monocytes # (Auto) 0.66 0.11-0.59 K/uL Eosinophils # (Auto) 0.22 0-0.5 K/uL Basophils # (Auto) 0.01 0-0.2 K/uL RDW Standard Deviation 44.3 36.4-46.3 fL RDW Coefficient of Variation 14.1 11.5-14.5 % Immature Granulocyte % (Auto) 0.4 % Immature Granulocyte # (Auto) 0.02 0.00-0.02 K/uL Red Blood Cell Morphology Unremarkable Prothrombin Time 11.9 9.0-12.0 SECONDS Prothromb Time International Ratio 1.1 0.9-1.1 Activated Partial Thromboplast Time 30.4 21.0-31.0 SECONDS Partial Thromboplastin Ratio 1.2 Sodium Level 143 136-145 mmol/L Potassium Level 3.1 3.5-5.1 mmol/L Chloride Level 107 98-107 mmol/L Carbon Dioxide Level 29 21-32 mmol/L Anion Gap 7.0 3-11 mmol/L Blood Urea Nitrogen 33 7-18 mg/dl Creatinine 1.90 0.60-1.40 mg/dl Est Creatinine Clear Calc Drug Dose 53.4 ml/min Estimated GFR () 46.3 Estimated GFR (Non- 39.9 BUN/Creatinine Ratio 17.3 10-20 Random Glucose 190 70-99 mg/dl Calcium Level 8.6 8.5-10.1 mg/dl Phosphorus Level 3.6 2.5-4.9 mg/dl Magnesium Level 1.8 1.8-2.4 mg/dl Total Bilirubin 0.3 0.2-1 mg/dl Aspartate Amino Transf (AST/SGOT) 26 15-37 U/L Alanine Aminotransferase (ALT/SGPT) 24 12-78 U/L Alkaline Phosphatase 87 45-117 U/L Total Protein 6.6 6.4-8.2 gm/dl Albumin 2.3 3.4-5.0 gm/dl Globulin 4.3 2.5-4.0 gm/dl Albumin/Globulin Ratio 0.5 0.9-2 Blood Gas Sample Site R Radial Bedside Blood Gas pH (LAB) 7.42 7.35-7.45 Bedside Blood Gas pCO2 (LAB) 44 35-46 mmHg Bedside Blood Gas pO2 (LAB) 78 80-95 mmHg Bedside Blood Gas HCO3 (LAB) 28 19-24 meq/L Bedside Blood Gas Total CO2 30 24-31 mEq/l Bedside Blood Gas Base Excess (LAB) 4.0 -9-1.8 meq/L Bedside Blood Gas O2 Saturation 95.0 90-95 % Antonino Test Pass Oxygen Delivery Device Other Bedside FiO2 0 % Bedside Glucose 161 104 70-99 mg/dl
[2017-02-11 19:20] LABS: PARTIAL THROMBOPLASTIN RATIO 1.4
[2017-02-11] MEDS: DEXTROSE 50% 50 ML SYR IV PRN (20:15)
[2017-02-11] MEDS ORDERED: HEPARIN IV BOLUS 7,000 UNIT in SYRINGE 0 ML IV ONE (21:00)
[2017-02-12] VITALS (21 sets, daily range): BP systolic 130–172; BP diastolic 61–103; PULSE 81–99; TEMP 36.8–37.6; O2SAT 90–98
[2017-02-12] MEDS: LEVALBUTEROL 1.25MG/0.5ML NEB INH SCH ×4 (02:36→19:18)
[2017-02-12] MEDS: IPRATROPIUM BROMIDE NEB SOLN 0.02% 2.5 ML VIAL INH SCH ×4 (02:36→19:18)
[2017-02-12 02:49] LABS: PARTIAL THROMBOPLASTIN RATIO 1.7
[2017-02-12] MEDS: HEPARIN 25,000 UNIT/500ML D5W 500 ML IV PRN ×2 (03:19→04:20)
[2017-02-12] MEDS: METOPROLOL TARTRATE 1 MG/ML VIAL IV. SCH ×2 (03:59→08:00)
[2017-02-12] MEDS: INSULIN ASPART 100 UNITS/ML 3 ML PEN SC SCH ×5 (04:00→20:21)
[2017-02-12] MEDS ORDERED: HEPARIN IV BOLUS 3,000 UNIT in SYRINGE 0 ML IV ONE (04:15)
[2017-02-12] MEDS ORDERED: VANCOMYCIN TROUGH ONE (05:30)
[2017-02-12] MEDS: NORMOSOL R 1,000 ML IV SCH ×2 (06:18→16:19)
[2017-02-12] MEDS: CLONIDINE HCL 0.1 MG TAB PO SCH (06:18)
[2017-02-12 06:40] LABS: BASO % 0.3 %; BASO ABS # 0.02 K/uL (0-0.2); HEMATOCRIT 24.7 % (42-52); IG% 0.2 %; LYMPH % 16.3 %; LYMPH ABS # 0.98 K/uL (1.2-3.4); MEAN CELL VOLUME 86.7 fL (80-100); MEAN CORPUSCULAR HEMOGLOBIN 28.8 pg (25-34); MEAN CORPUSCULAR HGB CONC 33.2 g/dl (32-36); MEAN PLATELET VOLUME 9.2 fL (7.4-10.4); MONO % 12.8 %; NEUT % 63.4 %; PLATELET COUNT 154 K/uL (130-400); RED BLOOD COUNT 2.85 M/uL (4.7-6.1)
[2017-02-12 07:12] LABS: COMPLETE YES; HYPERSEGMENTED POLYS 1+; TOXIC GRANULATION 1+
[2017-02-12 07:43] LABS: BUN/CREATININE RATIO 17.5 (10-20); CALCIUM 8.1 mg/dl (8.5-10.1); CREATININE 1.7 mg/dl (0.60-1.40); MAGNESIUM 1.9 mg/dl (1.8-2.4); POTASSIUM 3.3 mmol/L (3.5-5.1)
[2017-02-12 07:45] LABS: PHOSPHORUS 2.8 mg/dl (2.5-4.9)
[2017-02-12] MEDS: CHECK CLONIDINE PATCH PLACEMENT SCH ×3 (08:00→16:00)
[2017-02-12] MEDS: AMLODIPINE BESYLATE 5 MG TAB PO SCH (08:40)
[2017-02-12] MEDS: GABAPENTIN 600 MG TAB PO SCH ×3 (08:40→20:21)
[2017-02-12] MEDS: NYSTATIN SUSP 500,000 U/5 ML UDC PO SCH ×4 (08:41→20:20)
[2017-02-12] MEDS: LISINOPRIL 10 MG TAB PO SCH (08:41)
[2017-02-12] MEDS: DOCUSATE SODIUM/SENNA 50/8.6MG TAB PO SCH ×3 (08:41→09:00)
[2017-02-12] MEDS: CEROVITE ADV FORMULA TAB PO SCH (08:41)
[2017-02-12] MEDS: ASPIRIN 81 MG CHEW PO SCH (08:41)
[2017-02-12] MEDS: LANSOPRAZOLE SOLUTAB 30 MG PO SCH (08:41)
[2017-02-12] MEDS: INSULIN GLARGINE SOLOSTAR 100 UNITS/ML 3 ML PEN SC SCH (08:43)
[2017-02-12] MEDS ORDERED: INSULIN GLARGINE SOLOSTAR 100 UNITS/ML 3 ML PEN SC SCH (09:00)
[2017-02-12] MEDS ORDERED: POTASSIUM CHLORIDE 20 MEQ/15 ML UDC PO ONE (10:00)
[2017-02-12 10:17] LABS: PARTIAL THROMBOPLASTIN RATIO 1.8
[2017-02-12] MEDS ORDERED: LEVETIRACETAM 250 MG TAB PO SCH (10:30)
[2017-02-12] MEDS ORDERED: OPTIRAY 320 IV PRN (11:00)
[2017-02-12] MEDS: METOPROLOL TARTRATE 25 MG TAB PO SCH ×2 (11:11→20:20)
[2017-02-12] MEDS ORDERED: CLONIDINE HCL 0.1 MG TAB PO SCH (12:00)
--- NOTE | 2017-02-12 12:02 | DIAGNOSTIC IMAGING REPORT ---
(CHEST FOR PE) ANGIO WITH CLINICAL HISTORY: 51 years-old Male presenting with hypoxia, respiratory failure, clinical concern for pulmonary embolus. TECHNIQUE: Multidetector CT angiography of the chest was performed after administration of intravenous contrast. 3-D volumetric and/or maximum intensity projection (MIP) images were subsequently reconstructed for review. IV contrast: 90 mL of Optiray 320. A dose lowering technique was used consistent with the principles of ALARA (as low as reasonably achievable). COMPARISON: 01/20/2017. CT DOSE (mGy.cm): The estimated cumulative dose is 540.82 mGy.cm. FINDINGS: Meter Installer topogram: Right upper lung opacity and left lung opacity. Pulmonary vasculature: The study is suboptimal secondary to the timing of contrast. No central filling defect within the pulmonary arteries. Evaluation of segmental and subsegmental arteries limited. Postsurgical changes of the left upper lobe pulmonary artery with ligation. Main pulmonary artery is not enlarged. No flattening of the interventricular septum. No intracardiac intracardiac filling defect. No reflux of contrast into the hepatic veins. Remaining chest: On soft tissue windows, anasarca suggested. Normal thyroid. Multiple prominent subcentimeter mediastinal lymph nodes, stable to slightly increased from prior. Prominent bilateral hilar lymph nodes. Normal aorta. Minimal coronary artery calcification. Normal heart size. Interval increase in now moderate left pleural effusion. Interval development of moderate right pleural effusion. No pericardial effusion. Feeding catheter extends at least to the stomach, terminus not visualized. On lung windows, significant interval decrease in diffuse left lung groundglass and solid peribronchovascular consolidation. Bilateral dependent consolidation with volume loss consistent with passive atelectasis. Groundglass and solid consolidation in the dependent portions of the right lower lobe associated with new smooth interlobular septal thickening. Interval increase in patchy groundglass and solid consolidation in the right upper lobe and minimally in the right middle lobe. Airways patent. On bone windows, normal osseous structures. IMPRESSION: 1. No evidence of pulmonary embolus. 2. Significant interval decrease in left lung infiltrates compatible with improving pneumonia. 3. Interval increase in right lung infiltrates. Given the presence of pleural effusions and interlobular septal thickening, a prominent component of pulmonary edema is likely. However, it is difficult to exclude spread of infection or, less likely, aspiration. 4. New right and increase in left pleural effusions. 5. Reactive mediastinal and hilar lymph nodes. 6. Anasarca. Electronically signed by: Ronnell Renee M.D. 02/12/2017 12:00 PM Dictated Date/Time: 02/12/2017 11:52 AM
--- NOTE | 2017-02-12 12:13 | Pharmacy Progress Note ---
Glycemic Control Progress Note Date of Service Feb 12, 2017. Scope Glycemic Pharmacist consulted for glycemic control to write orders per [facility] inpatient glycemic control protocol. Objective Accuchecks BSG (last 24hrs): Test 02/11/17 12:16 02/11/17 16:27 02/11/17 20:04 02/11/17 20:24 Bedside Glucose 161 mg/dl (70-99) 104 mg/dl (70-99) 69 mg/dl (70-99) 103 mg/dl (70-99) Test 02/11/17 23:49 02/12/17 03:54 02/12/17 04:44 Bedside Glucose 90 mg/dl (70-99) 120 mg/dl (70-99) Random Glucose 85 mg/dl (70-99) Recent Pertinent Medications The patient is currently receiving: * Basal insulin: Lantus 30 units every 24 hours * Correctional Insulin: Novolog Correction per scale ACHS Goal Range: Low 140 mg/dL - High 180 mg/dL Correction Factor: 20 mg/dL/unit * Prandial insulin: Per carb ratio of 1 unit per 7 grams CHO consumed Outpatient Anti-Diabetic Meds Lantus/Novolog Assessment & Plan ASSESSMENT: * 51 yo M admitted to ICU s/p removal of infected intrathecal pain pump * Initially he required an insulin drip for management of BSGs while on tube feeds and intubated * Pt has since had tube feeds discontinued and BSGs have improved dramatically * Pt not eating very much right now and had a BSG of 69 last night * Due to minimal PO intake, back off on Lantus and continue to do so tomorrow based on BSG trend * If pt starts eating, picture will change as he has been carb sensitive in the past PLAN FOR INPATIENT GLYCEMIC CONTROL: * Basal insulin * Lantus 20 units SQ daily * May need further decreased in the morning * Bolus insulin * NovoLog per scale ACHS or Q6hrs while NPO * Goal Range: Low 140 mg/dL - High 180 mg/dL * Correction Factor: 20 mg/dL/unit * Nutritional / Prandial insulin per carb ratio of 1 unit per 7 grams CHO consumed * Please note that the plan above was derived based on current level of insulin resistance and hospital stress. These recommendations are appropriate for inpatient admission only. Plan of care upon discharge will need to be reassessed to avoid potential outpatient hypo/hyperglycemia. Thank you.
--- NOTE | 2017-02-12 13:08 | Pain Management Progress Note ---
Pain Management Progress Note Date of Service Feb 12, 2017. Gabriele Aguilar is awake and alert this morning. He is currently experiencing generalized pain "all over". He also reports experiencing generalized headache and mild photophobia. Denies tinnitus. He required adjustment of his hydromorphone drip for pain due to changes mental status waxing and waning. Otherwise offers no new complaint. Objective Vital Signs: Last Vital Signs Documentation Date Time Temp Pulse Resp B/P (MAP) Pulse Ox O2 Delivery O2 Flow Rate FiO2 02/12/17 12:00 37.6 88 15 150/85 (106) 92 Nasal Cannula 5.0 02/11/17 02:11 50 Physical Exam: He is awake, alert, oriented times place and person and shows normal and clear sensorium this morning. Abdominal wound is attached if wound VAC with minimal drainage. Back wound dressing was removed and was noted to be CSF soaked. Laboratory Laboratory Findings 02/12/17 04:44 Red Blood Count 2.85 L, Mean Corpuscular Volume 86.7, Mean Corpuscular Hemoglobin 28.8, Mean Corpuscular Hemoglobin Concent 33.2, Mean Platelet Volume 9.2, Neutrophils (%) (Auto) 63.4, Lymphocytes (%) (Auto) 16.3, Monocytes (%) ( Auto) 12.8, Eosinophils (%) (Auto) 7.0, Basophils (%) (Auto) 0.3, Neutrophils # (Auto) 3.80, Lymphocytes # (Auto) 0.98 L, Monocytes # (Auto) 0.77 H, Eosinophils # (Auto) 0.42, Basophils # (Auto) 0.02 Assessment 1. Status post expectation of intrathecal catheter and pump with continuous drainage. Recommendations 1. Continue titrating IV hydromorphone. 2. We will contact [facility] neurosurgery to see if inpatient transfer for can be made to address the CSF leak. We will check with the patient and his spouse today prior to making arrangements for transfer.
--- NOTE | 2017-02-12 13:08 | Progress Note ---
Internal Med Progress Note Date of Service: Feb 12, 2017. Provider Documentation: SUBJECTIVE: The patient was seen and Examined S/P Drainage of fluid collection from the back S/P Extubation Generally weak Remains reasonably stable Minimal CSF leakage from the back lesion OBJECTIVE: Vital Signs-as noted below Exam: General-Minimal distress at rest Eyes-normal ENT-normal Neck-Supple Lungs-decreased breath sound bilaterally With widespread crackles Heart-Regular,no murmur appreciated Abdomen-Benign,no masses,bowel sound present Extremities-Trace edema bilaterally Clear drainage from the back wound Neuro-Sedated on Vent Lab data as noted below. 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 and severe diabetic gastroparesis s/p gastric pacemaker; chronic pain syndrome on long-term opioids s/p intrathecal pump, HTN, H/O of seizure disorder - recently admitted for infected and leaking intrathecal pump with surgical repair and on long-term antibiotics - presents secondary to worsening back pain and worsening nausea/vomiting Acute Respiratory Failure :S/P Extubation Acute SOB this morning:Differential includes-Fluid overload,CHF,Pneumonia- Aspiration ,Narcotic induced ,exacerbation associated with lung cancer or even ARDS With change in mental status and decreased saturation of 70s Received 1 dose of Narcan,60mg IV Lasix ,CXR and blood tests and started on NRB ABG ordered and the patient is transferred to ICU for continued care Has been on IV Vanco,Cefepime and Clindamycin ID,Ortho and Pain therapist are on board Generally weak and lethargic Clinically a little better today Advised complete bedrest Anemia Likely secondary to Ongoing infection Will transfuse 2 units of PRBC S/p 2 units of PRBC Hb 8.2 on 02/12/17 Possible Ongoing Infective process Remains afebrile and no Increase in WCC, Intrathecal Pain Pump is removed PICC line is removed New central line inserted ID is on board Continue current antibiotics Remains afebrile Persistent Intrathecal Pump Leakage and Infection-Removed Left Paraspinal Abscess Was discharged on 01/31 - during that admission, he had an I&D and stopped CSF leakage He had a PICC line put in and was discharged on 6 weeks of Vancomycin Abdominal/Pelvis CT suggests a persistent abscess around 4.2cm Patient is now on Cefepime, Clindamycin, and Vancomycin Appreciate ID input Appreciate Pain management and Spine Surgery input S/P I&D 02/05/17::No CSF leakage ,Old collection drained S/P Removal of Intrathecal Pain Pump and catheter; Application of Wound Vac on 02/07/17 CSF fluid showed increased WCC ~2000,Gm stain is negative Consulted Wound Care-appreciate input Continue Current antibiotic Leakage from the wound at the back -decreased Bilateral Lower Extremity Swelling Possibly related to low protein Added boost TID-Nutrition consulted US negative for any clot HTN Has been on BB and Amlodipine and Lisinopril Still on the upper side Increase BB to 50mg BID Possible Aspiration Pneumonia Patient has had issues with nausea/vomiting He presented with some shortness of breath issues CXR suggests right perihilar and medial right lung base opacities suggesting atelectasis or pneumonia Added Clindamycin for anaerobic coverage Ongoing antibiotic for other reason Anasarca Likely from low protein Received one dose of IV Lasix Add boost glucose control Persistent Nausea/Vomiting He has a gastric pacemaker in, unfortunately, he still has persistent n/v Received one dose of Emend Continue Zofran PRN Chronic Pain on Long-Term Opioids Would appreciate pain management input Currently on PO hydromorphone 4mg q3hrs PRN Will try to avoid IV narcotics Asking for more pain medicine -appreciate Pain therapist input Removal of Intrathecal Pain Pump and catheter Appreciate pain therapy input Insulin Dependent DM2 Currently on Lantus 12 units BID Insulin sliding scale Monitor blood sugars - he presented with hypoglycemia; now slightly hyperglycemic, we will monitor Has been started on IN infusion Hx. of Seizure Disorder continue Keppra DVT ppx Will start Lovenox 40 mg Daily starting at 6 PM this Evening FULL CODE Continue current care in ICU Vital Signs: Date Time Temp Pulse Resp B/P (MAP) Pulse Ox O2 Delivery O2 Flow Rate FiO2 02/12/17 12:00 37.6 88 15 150/85 (106) 92 Nasal Cannula 5.0 02/12/17 12:00 Nasal Cannula 5.0 02/12/17 10:00 94 12 134/74 (94) 92 Nasal Cannula 3.0 02/12/17 08:00 Nasal Cannula 3.0 02/12/17 08:00 Nasal Cannula 02/12/17 08:00 37.6 95 12 158/81 (106) 90 Nasal Cannula 3.0 02/12/17 07:14 91 12 95 Nasal Cannula 3.0 02/12/17 06:01 91 14 169/95 (119) 94 Nasal Cannula 3.0 02/12/17 05:01 88 12 140/76 (97) 96 Nasal Cannula 4.0 02/12/17 04:12 90 12 156/85 (108) 92 Nasal Cannula 4.0 02/12/17 04:01 37.5 99 16 172/103 (126) 94 Nasal Cannula 4.0 02/12/17 04:00 Nasal Cannula 4.0 02/12/17 03:59 99 155/91 02/12/17 03:02 97 16 135/77 (96) 98 Nasal Cannula 4.0 02/12/17 02:36 90 10 96 Nasal Cannula 3.0 02/12/17 02:01 92 12 159/89 (112) 97 Nasal Cannula 4.0 02/12/17 01:01 88 12 160/90 (113) 93 Nasal Cannula 4.0 02/12/17 00:01 37.4 97 10 159/88 (111) 94 Nasal Cannula 4.0 02/12/17 00:00 Nasal Cannula 4.0 02/11/17 23:55 96 151/86 02/11/17 22:01 85 11 156/94 (114) 98 Oxymask 10.0 02/11/17 21:01 82 10 128/68 (88) 97 Oxymask 10.0 02/11/17 20:01 36.9 83 7 148/89 (108) 97 Oxymask 10.0 02/11/17 20:00 Oxymask 10.0 02/11/17 18:52 77 10 98 Mask 10.0 02/11/17 18:00 79 10 126/68 (87) 97 Oxymask 10.0 02/11/17 16:00 Oxymask 10.0 02/11/17 16:00 37.0 82 12 146/76 (99) 95 Oxymask 10.0 02/11/17 14:16 87 12 97 Mask 10.0 02/11/17 14:00 89 12 167/88 (114) 98 Oxymask 10.0 Lab Results: Results Past 24 Hours Test 02/11/17 16:27 02/11/17 18:56 02/11/17 20:04 02/11/17 20:24 Range/Units Bedside Glucose 104 69 103 70-99 mg/dl Activated Partial Thromboplast Time 37.0 21.0-31.0 SECONDS Partial Thromboplastin Ratio 1.4 Test 02/11/17 23:49 02/12/17 02:32 02/12/17 03:54 02/12/17 04:44 Range/Units Bedside Glucose 90 120 70-99 mg/dl Activated Partial Thromboplast Time 43.2 21.0-31.0 SECONDS Partial Thromboplastin Ratio 1.7 White Blood Count 6.00 4.8-10.8 K/uL Red Blood Count 2.85 4.7-6.1 M/uL Hemoglobin 8.2 14.0-18.0 g/dL Hematocrit 24.7 42-52 % Mean Corpuscular Volume 86.7 80-100 fL Mean Corpuscular Hemoglobin 28.8 25-34 pg Mean Corpuscular Hemoglobin Concent 33.2 32-36 g/dl Platelet Count 154 130-400 K/uL Mean Platelet Volume 9.2 7.4-10.4 fL Neutrophils (%) (Auto) 63.4 % Lymphocytes (%) (Auto) 16.3 % Monocytes (%) (Auto) 12.8 % Eosinophils (%) (Auto) 7.0 % Basophils (%) (Auto) 0.3 % Neutrophils # (Auto) 3.80 1.4-6.5 K/uL Lymphocytes # (Auto) 0.98 1.2-3.4 K/uL Monocytes # (Auto) 0.77 0.11-0.59 K/uL Eosinophils # (Auto) 0.42 0-0.5 K/uL Basophils # (Auto) 0.02 0-0.2 K/uL RDW Standard Deviation 44.9 36.4-46.3 fL RDW Coefficient of Variation 14.2 11.5-14.5 % Immature Granulocyte % (Auto) 0.2 % Immature Granulocyte # (Auto) 0.01 0.00-0.02 K/uL Hypersegmented Polys 1+ Toxic Granulation 1+ Red Blood Cell Morphology Unremarkable Sodium Level 144 136-145 mmol/L Potassium Level 3.3 3.5-5.1 mmol/L Chloride Level 107 98-107 mmol/L Carbon Dioxide Level 28 21-32 mmol/L Anion Gap 9.0 3-11 mmol/L Blood Urea Nitrogen 30 7-18 mg/dl Creatinine 1.70 0.60-1.40 mg/dl Est Creatinine Clear Calc Drug Dose 57.7 ml/min Estimated GFR () 52.9 Estimated GFR (Non- 45.7 BUN/Creatinine Ratio 17.5 10-20 Random Glucose 85 70-99 mg/dl Calcium Level 8.1 8.5-10.1 mg/dl Phosphorus Level 2.8 2.5-4.9 mg/dl Magnesium Level 1.9 1.8-2.4 mg/dl Test 02/12/17 09:42 Range/Units Absolute Reticulocyte Count 0.02 0.02-0.10 10^6/uL Percent Reticulocyte Count 0.7 0.5-2.0 % Activated Partial Thromboplast Time 46.9 21.0-31.0 SECONDS Partial Thromboplastin Ratio 1.8
--- NOTE | 2017-02-12 15:07 | Critical Care Progress Note ---
Critical Care Progress Note Date of Service Feb 12, 2017. ICU Day ICU Day Number: [address] Sol Subjective The patient was seen and examined at bedside. Dilaudid drip was turned to 0 overnight for a few hours and then increased to 0.5mg/hr. Pt is more awake than previous day. Overnight NG tube was running with 15mls/hr of Peptamen. There was a short 8 beat run of VTACH on monitor overnight. Patient is resting comfortably in bed. States he is in pain - however this appears to be his baseline. Pt is not taking oral intake well - had a chocolate milk for breakfast. Pt is lying as supine as possible - at approximately 15 degrees head elevation is the pt's sweet spot for minimizing pain. Plan of care was described to the patient and all questions were answered. ROS: No chest pain, no SOB, no palpitations, no fevers, no chills, no nausea, no vomiting, no diarrhea, no dysuria, no rash. Objective General Appearance: Well nourished, no distress. Pt is more alert and awake than the previous day. Eyes: PERRLA, no discharge, EOMI, 2 mm in size ENT: normal ear exam, normal nasal exam, normal mouth exam Neck: normal range of motion, no tenderness, trachea midline Respiratory: CTA anteriorly. Cardiovasular: regular rate/rhythm, normal S1S2, normal peripheral pulses Abdomen: non tender, no rebound, no masses, right lower quadrant incision with VAC dressing application. NG tube in place (Peptamen has been held) Back: Lumbar incision dressing is dry. Upper Extremities: no edema, no deformity, can barely lift arm to command. Lower Extremities: no edema, no deformity Neuro: moves spontaneously all 4 extremities, quiet speech, dilautid drip is running. Current SOFA Score SOFA Score Response (Comments) Value Platelets (x10) > 150 0 Bilirubin (mg/dL) < 1.2 0 [place] Coma Score 15 0 Level of Hypotension No Hypotension 0 Creatinine (mg/dL) 1.2 - 1.9 1 Total 1 Assessment & Plan 51M with a PMHx of non small cell lung CA s/p resection and chemo (not completed ), intrathecal pump for chronic back pain p/w back pain two days after being discharged [place] [facility] [place] with [place] PICC line for an MSSA infection. The thecal insertion site was found to have an abscess, CSF studies showed an increased WBC count. Pt is being treated for a suspected CSF infection. Intrathecal pump was removed and abscess was drained. Pt was intubated on 02/07/17 for encephalopathy and extubated on 02/10/17. PICC line was removed on 02/10/17 and a triple lumen IJ line was placed. Pt received a 10 day course of Cefepime and Clindamycin. Pt continues to be on Vancomycin. Pt is on a Dilautid Drip ( ranging between 0.5-1mg/hr). Pt switched to tolerating PO feeds on 02/12/17. Oxygen requirement has been titrate down to 3-5LNC. CTA today showed no evidence of PE despite being at high risk 2/2 to Lung CA and prolonged hospital course. CT did show increasing pleural effusions and pulm edema. IVF Normosol was decreased from 100mls/hr to 30mls/hr due to increased pulm edema on CT Chest. Thoracocentesis planned for 02/13/2017 and AC held. Neuro: * AAOx3 but weak. CAM negative. * Pt was intubated on 02/07 for metabolic encephalopathy 2/2 to sepsis and extubated on 02/10/17. CT Scan of head was normal. * Pain control with Dilaudid drip, approx 0.75mg /h. Last dose of Clonidine 0.1mg this afternoon. * Per Ortho pt must lay supine to reduce pain (this will however increase his aspiration risk). * Neuropathic Pain: Neurontin 600mg PO TID. * Mood: c/w Venlafaxine 37.5mg daily. * Stopping Keppra - this was a home med that was started for neuropathic pain. * Will order an EEG for a h/o of "spacing out" while speaking. * Consider repeat CT head, psych consult or neuro consult of mentation does not improve - although today patient was conversing well. * MRI contraindicated due to Gastric Stimulator. (we called the Podiatric Surgeon - this can also be confirmed on the Podiatric Surgeon's website) CV - * EKG from 02/01/17 was normal sinus rhythm. * Echo on 02/03/17 showed moderate LVH, moderate MR, elevated R VSP and an EF of 60-65%. * HTN: c/w Amlodipine 10mg daily, Lisinopril 10mg daily, restarting Lopressor 25mg BID. * 8 beat run of VTACH on monitor: will continue to monitor, K+ was aggressively repleted. Resp - * Pt had a new oxygen requirement. We originally suspected Aspiration Pneumonia however bronchoscopy over the weekend showed no changes. * We have now titrated down the oxygen to 3-5L via NC * X-ray today showed 'developing asymmetric pulmonary edema pattern right greater than left. Small pleural effusions are suspected.' * Pt's ABG shows that he is hypoxic and retaining, UE and LE dopplers were negative. CT for PE today was negative. He did not complete his course of treatment for Lung CA. We will start Lovenox SQ 40mg tomorrow after thoracocentesis. Hold Hep Drip. Pt is extremely high risk for DVTs. * We plan on a thoracocentesis tomorrow for an analysis of the pleural fluid, this development explains his new oxygen requirement. Worse case scenario is a malignant pleural effusions. * Xopenex / Ipratropium Q6H. Renal/ - * IVNA: Creatinine downtrending, 1.9-->1.7, possibly related to 2 units PRBCs received Saturday copyholder. * - 1.0L to date * Decreasing IVF to 30mls/hr + adding Peptamen starting at 15mls/hr --> CT showed pleural effusions and possible Pulm edema and remarked on Anasarca, we do not want to fluid overload. Recent echo was normal. GI/Diet: * Restarting the Peptamen at 15mls/hr with a max goal of 65mls/hr. We are also adding on Prosource 30mls daily + whatever the pt tolerates PO. * Will add on Marinol 5mg caps BID to stimulate appetite. * Gastroparesis with Gastric Stimulator: Pt has been having frequent BM, obstruction is not an issue at present. * Gastric Stimulator is not compatible with MRI machine. * GI Proph: Lansoprazole 30mg PO daily. Endo: * Blood Sugars running high, now on insulin. * HBA1C was 7.2 in mid January. * Electrolytes: Na+ 140, K+ 3.3. -> given 60meq KCl. * Mg was 1.9, Phos was 2.8 Heme: * Hgb 8.2 s/p 2 units PRBC, Platelets 155 WNL. * Absolute Retic count and % Retic count is normal. -> this is an unexpected finding, pt's is not producing RBC, will discuss with Dr. Sol. * DVT Proph (high risk): Stopping Hep Drip, will start on Lovenox 40 SQ tomorrow after the thoracocentesis. ID: * Pt continues to have slightly elevated temps, this may be infectious or secondary to pain/ or a lower opioid regimen. * ID on board, likely source for sepsis was the intrathecal port (now removed), continuing Vanco (Day#11) . S/p Cefepime (10 days) and Clindamycin (9-10 days) * CSF and Blood cultures negative to date. MSK - * Chronic back pain control as above. * PT and OT on board. Dispo: ? was present today, explained the entire course of illness, she will not be present on . Full Code Resident Physician Supervision Note: Dr. Brand was resident physician during care of patient. I separately evaluated patient and did history and exam. I discussed the case with the resident and generally agree with the findings and plan. Progress the patient's with the appears much more clear today. He does not fact have a history of seizures, he was switched from gabapentin to Keppra for neuropathic pain. It discontinue the Keppra at this point to see if that improves his mental status, I am concerned about the possibility of a paraneoplastic syndrome as there is report the patient's mental status is worsened over the past days to weeks. At this time we can proceed with a paraneoplastic CSF evaluation given his leak and concern for complicating his current treatment course. An MRI secondary to the gastric stimulator. With his history of lung cancer, we will attempt to do a thoracentesis tomorrow and send the fluid for cytology, we have stopped his therapeutic anticoagulation secondary to obtaining a CT today was did not reveal any pulmonary embolism. I discussed the risks and benefits of the procedure for a thoracentesis with the patient as well as his . They agreed to proceed with the procedure at this time. I have personally spent 35 minutes of critical care time in the direct management of this patient. This is a life/limb threatening event. This includes time spent evaluating patient, direct bedside care, chart review, placing orders, interpretation of diagnostic studies, discussion with consultants, patient, and family members, as well as other required patient management activities. This time is exclusive of all separately billable procedures, and teaching time and separate from and in addition to any other critical care service time. Documented By: Jeff Sol DO KAW II Score Date Score Was Generated: Feb 09, 2017 Consults & Procedures Consultants: Anesthesia Critical care Infectious disease Pain Management Wound Care Ortho Procedures: Discontinuation of intrathecal pump Intubation on 02/07 Extubation on 02/10 IJ Triple Lumen insertion on 02/10 PICC line removal on 02/10 Data Medications: Current Inpatient Medications Medications (Trade) Dose Ordered Sig/Cal Route Start Time Stop Time Status Last Admin Dose Admin Glucose (Glucose 40% Gel) 15-30 GRAMS 15 GRAMS... UD PRN PO 02/02/17 03:45 03/04/17 03:44 Glucose (Glucose Chew Tab) 4-8 Tablets 4 Tabl... UD PRN PO 02/02/17 03:45 03/04/17 03:44 Dextrose (Dextrose 50% 50ML Syringe) 25-50ML OF 50% DW IV FOR... UD PRN IV 02/02/17 03:45 03/04/17 03:44 02/11/17 20:15 25 ML Glucagon (Glucagon Inj) 1 mg UD PRN SQ 02/02/17 03:45 03/04/17 03:44 Folic Acid (Folvite Tab) 1 mg QAM PO 02/02/17 09:00 03/04/17 08:59 02/12/17 08:41 1 MG Venlafaxine HCl (effeXOR EXTENDED REL CAP) 37.5 mg QAM PO 02/02/17 09:00 03/04/17 08:59 02/10/17 08:14 37.5 MG Ipratropium Floris (Atrovent 0.02% 0.5MG/2.5ML Neb) 0.5 mg Q4H PRN INH 02/02/17 04:00 03/04/17 03:59 Levalbuterol (Xopenex 1.25MG/ 0.5ML Neb) 1.25 mg Q4H PRN INH 02/02/17 04:00 03/04/17 03:59 Vancomycin HCl (Consult) 1 ea UD PRN N/A 02/02/17 04:45 03/04/17 04:44 Senna/Docusate Sodium (Senokot S Tab) 1 tab QAM PO 02/02/17 09:00 03/04/17 08:59 02/11/17 12:05 1 TAB Heparin Sodium (Porcine) (Heparin 10 Unit/ ml 5 ml Flush) 5 ml PRN PRN FLUSH 02/03/17 00:30 03/05/17 00:29 02/04/17 17:30 5 ML Ondansetron HCl (Zofran Inj) 4 mg Q6H PRN IV 02/03/17 02:45 03/05/17 02:44 02/05/17 02:05 4 MG Promethazine HCl 12.5 mg/Sodium Chloride 50.5 ml @ 204 mls/hr Q6H PRN IV 02/03/17 02:45 03/05/17 02:44 02/07/17 02:35 204 MLS/HR Amlodipine Besylate (Norvasc Tab) 10 mg DAILY PO 02/04/17 09:00 03/04/17 08:59 02/12/17 08:40 10 MG Miscellaneous Information (Consult Glycemic Management Pharmacy) 1 ea UD PRN N/A 02/07/17 08:45 03/09/17 08:44 Lisinopril (Zestril Tab) 10 mg QAM PO 02/10/17 09:00 03/06/17 08:59 02/12/17 08:41 10 MG Aspirin (Aspirin Chew) 81 mg QAM PO 02/11/17 09:00 03/11/17 08:59 02/12/17 08:41 81 MG Lansoprazole (Prevacid Solutab) 30 mg DAILY PO 02/11/17 09:00 03/11/17 13:44 02/12/17 08:41 30 MG Multivitamins/ Minerals (Multivitamin W/ Minerals Tab) 1 tab QAM PO 02/11/17 09:00 03/13/17 08:59 02/12/17 08:41 1 TAB Gabapentin (Neurontin Tab) 600 mg TID PO 02/10/17 21:00 03/12/17 20:59 02/12/17 13:38 600 MG Nystatin (Mycostatin Susp) 5 ml QID PO 02/10/17 17:00 02/20/17 16:59 02/12/17 13:38 5 ML Ipratropium [place] (Atrovent 0.02% 0.5MG/2.5ML Neb) 0.5 mg Q6R INH 02/10/17 21:00 03/12/17 20:59 02/12/17 07:14 0.5 MG Levalbuterol (Xopenex 1.25MG/ 0.5ML Neb) 1.25 mg Q6R INH 02/10/17 21:00 03/12/17 20:59 02/12/17 07:14 1.25 MG Clonidine HCl ([id number] 0.3mg/24hr Patch) 1 patch CQWK TD 02/11/17 10:00 03/13/17 09:59 02/11/17 16:34 1 PATCH Miscellaneous (Remove Clonidine Patch) 1 ea Q7D@0959 N/A 02/18/17 09:59 03/20/17 09:58 Miscellaneous Information (Check Clonidine Patch Placement) 1 ea QS N/A 02/11/17 16:00 03/13/17 15:59 02/12/17 08:00 1 EA Hydromorphone HCl 100 ml @ 0 mls/hr Q0M IV 02/11/17 10:00 02/25/17 09:59 02/11/17 10:55 1.5 MLS/HR Parenteral Electrolyte Solution 1,000 ml @ 100 mls/hr Q10H IV 02/11/17 10:00 03/13/17 09:59 02/12/17 06:18 100 MLS/HR Miscellaneous Information ( Icu Electrolyte Replacement Protocol) 1 ea per protocol PRN N/A 02/11/17 12:45 02/18/17 12:44 Insulin Glargine (Lantus Solostar Pen) 20 units DAILY SC 02/12/17 09:00 03/14/17 08:59 02/12/17 08:43 20 UNITS Insulin Aspart (novoLOG ASPART) SLIDING SCALE ACHS SC 02/12/17 11:00 03/14/17 10:59 02/12/17 09:04 1 UNITS Metoprolol Tartrate (Lopressor Tab) 25 mg BID PO 02/12/17 10:00 03/14/17 09:59 02/12/17 11:11 25 MG Ioversol (Optiray 320) 100 ml UD PRN IV 02/12/17 11:00 02/16/17 10:59 Enoxaparin Sodium (Lovenox Inj) 40 mg QAM SQ 02/13/17 09:00 03/15/17 08:59 UNV I & O: 24-Hour Column 02/13/17 08:00 Intake Total 1196 ml Output Total 1300 ml Balance -104 ml Vital Signs: Date Time Temp Pulse Resp B/P (MAP) Pulse Ox O2 Delivery O2 Flow Rate FiO2 02/12/17 14:00 85 9 143/86 (105) 93 Nasal Cannula 5.0 02/12/17 12:00 37.6 88 15 150/85 (106) 92 Nasal Cannula 5.0 02/12/17 12:00 Nasal Cannula 5.0 02/12/17 10:00 94 12 134/74 (94) 92 Nasal Cannula 3.0 02/12/17 08:00 Nasal Cannula 3.0 02/12/17 08:00 Nasal Cannula 02/12/17 08:00 37.6 95 12 158/81 (106) 90 Nasal Cannula 3.0 02/12/17 07:14 91 12 95 Nasal Cannula 3.0 02/12/17 06:01 91 14 169/95 (119) 94 Nasal Cannula 3.0 02/12/17 05:01 88 12 140/76 (97) 96 Nasal Cannula 4.0 02/12/17 04:12 90 12 156/85 (108) 92 Nasal Cannula 4.0 02/12/17 04:01 37.5 99 16 172/103 (126) 94 Nasal Cannula 4.0 02/12/17 04:00 Nasal Cannula 4.0 02/12/17 03:59 99 155/91 02/12/17 03:02 97 16 135/77 (96) 98 Nasal Cannula 4.0 02/12/17 02:36 90 10 96 Nasal Cannula 3.0 02/12/17 02:01 92 12 159/89 (112) 97 Nasal Cannula 4.0 02/12/17 01:01 88 12 160/90 (113) 93 Nasal Cannula 4.0 02/12/17 00:01 37.4 97 10 159/88 (111) 94 Nasal Cannula 4.0 02/12/17 00:00 Nasal Cannula 4.0 02/11/17 23:55 96 151/86 02/11/17 22:01 85 11 156/94 (114) 98 Oxymask 10.0 02/11/17 21:01 82 10 128/68 (88) 97 Oxymask 10.0 02/11/17 20:01 36.9 83 7 148/89 (108) 97 Oxymask 10.0 02/11/17 20:00 Oxymask 10.0 02/11/17 18:52 77 10 98 Mask 10.0 02/11/17 18:00 79 10 126/68 (87) 97 Oxymask 10.0 02/11/17 16:00 Oxymask 10.0 02/11/17 16:00 37.0 82 12 146/76 (99) 95 Oxymask 10.0 Laboratory Results: Last 24 Hours Test 02/11/17 16:27 02/11/17 18:56 02/11/17 20:04 02/11/17 20:24 Bedside Glucose 104 mg/dl 69 mg/dl 103 mg/dl Activated Partial Thromboplast Time 37.0 SECONDS Partial Thromboplastin Ratio 1.4 Test 02/11/17 23:49 02/12/17 02:32 02/12/17 03:54 02/12/17 04:44 Bedside Glucose 90 mg/dl 120 mg/dl Activated Partial Thromboplast Time 43.2 SECONDS Partial Thromboplastin Ratio 1.7 White Blood Count 6.00 K/uL Red Blood Count 2.85 M/uL Hemoglobin 8.2 g/dL Hematocrit 24.7 % Mean Corpuscular Volume 86.7 fL Mean Corpuscular Hemoglobin 28.8 pg Mean Corpuscular Hemoglobin Concent 33.2 g/dl Platelet Count 154 K/uL Mean Platelet Volume 9.2 fL Neutrophils (%) (Auto) 63.4 % Lymphocytes (%) (Auto) 16.3 % Monocytes (%) (Auto) 12.8 % Eosinophils (%) (Auto) 7.0 % Basophils (%) (Auto) 0.3 % Neutrophils # (Auto) 3.80 K/uL Lymphocytes # (Auto) 0.98 K/uL Monocytes # (Auto) 0.77 K/uL Eosinophils # (Auto) 0.42 K/uL Basophils # (Auto) 0.02 K/uL RDW Standard Deviation 44.9 fL RDW Coefficient of Variation 14.2 % Immature Granulocyte % (Auto) 0.2 % Immature Granulocyte # (Auto) 0.01 K/uL Hypersegmented Polys 1+ Toxic Granulation 1+ Red Blood Cell Morphology Unremarkable Sodium Level 144 mmol/L Potassium Level 3.3 mmol/L Chloride Level 107 mmol/L Carbon Dioxide Level 28 mmol/L Anion Gap 9.0 mmol/L Blood Urea Nitrogen 30 mg/dl Creatinine 1.70 mg/dl Est Creatinine Clear Calc Drug Dose 57.7 ml/min Estimated GFR () 52.9 Estimated GFR (Non- 45.7 BUN/Creatinine Ratio 17.5 Random Glucose 85 mg/dl Calcium Level 8.1 mg/dl Phosphorus Level 2.8 mg/dl Magnesium Level 1.9 mg/dl Test 02/12/17 09:42 Absolute Reticulocyte Count 0.02 10^6/uL Percent Reticulocyte Count 0.7 % Activated Partial Thromboplast Time 46.9 SECONDS Partial Thromboplastin Ratio 1.8 Resident Involvement: Resident Care Provided Care Provided: Adult Hospital Medicine
[2017-02-12] MEDS ORDERED: DRONABINOL 2.5 MG CAP PO PRN (15:15)
--- NOTE | 2017-02-12 15:28 | Progress Note ---
Subjective Date of Service: Feb 12, 2017. Subjective afebrile, remains on abx, cefepime stopped today. all cultures this admission remain negative. Problem List Medical Problems: (1) Acute kidney injury Status: Acute (2) Altered mental status Status: Acute (3) Anemia Status: Acute (4) Chronic pain Status: Acute (5) Dehydration Status: Acute (6) Dehydration Status: Acute (7) Dehydration Status: Acute (8) Dehydration Status: Acute (9) Diabetes mellitus with hyperglycemia Status: Acute (10) Failure of outpatient treatment Status: Acute (11) Hypomagnesemia Status: Acute (12) Hypomagnesemia Status: Acute (13) Intractable vomiting Status: Acute (14) Intractable vomiting Status: Acute (15) Intrathecal pump infection Status: Acute (16) Orthostatic hypotension Status: Acute (17) Pneumonia Status: Acute (18) Post-operative complication Status: Acute (19) Sepsis Status: Acute (20) Vomiting Status: Acute (21) Vomiting Status: Acute Objective Vital Signs Date Time Temp Pulse Resp B/P (MAP) Pulse Ox O2 Delivery O2 Flow Rate FiO2 02/12/17 14:00 85 9 143/86 (105) 93 Nasal Cannula 5.0 02/12/17 12:00 37.6 88 15 150/85 (106) 92 Nasal Cannula 5.0 02/12/17 12:00 Nasal Cannula 5.0 02/12/17 10:00 94 12 134/74 (94) 92 Nasal Cannula 3.0 02/12/17 08:00 Nasal Cannula 3.0 02/12/17 08:00 Nasal Cannula 02/12/17 08:00 37.6 95 12 158/81 (106) 90 Nasal Cannula 3.0 02/12/17 07:14 91 12 95 Nasal Cannula 3.0 02/12/17 06:01 91 14 169/95 (119) 94 Nasal Cannula 3.0 02/12/17 05:01 88 12 140/76 (97) 96 Nasal Cannula 4.0 02/12/17 04:12 90 12 156/85 (108) 92 Nasal Cannula 4.0 02/12/17 04:01 37.5 99 16 172/103 (126) 94 Nasal Cannula 4.0 02/12/17 04:00 Nasal Cannula 4.0 02/12/17 03:59 99 155/91 02/12/17 03:02 97 16 135/77 (96) 98 Nasal Cannula 4.0 02/12/17 02:36 90 10 96 Nasal Cannula 3.0 02/12/17 02:01 92 12 159/89 (112) 97 Nasal Cannula 4.0 02/12/17 01:01 88 12 160/90 (113) 93 Nasal Cannula 4.0 02/12/17 00:01 37.4 97 10 159/88 (111) 94 Nasal Cannula 4.0 02/12/17 00:00 Nasal Cannula 4.0 02/11/17 23:55 96 151/86 02/11/17 22:01 85 11 156/94 (114) 98 Oxymask 10.0 02/11/17 21:01 82 10 128/68 (88) 97 Oxymask 10.0 02/11/17 20:01 36.9 83 7 148/89 (108) 97 Oxymask 10.0 02/11/17 20:00 Oxymask 10.0 02/11/17 18:52 77 10 98 Mask 10.0 02/11/17 18:00 79 10 126/68 (87) 97 Oxymask 10.0 02/11/17 16:00 Oxymask 10.0 02/11/17 16:00 37.0 82 12 146/76 (99) 95 Oxymask 10.0 Laboratory Results Item Value Date Time Blood Culture - Preliminary Resulted 02/10/17 1025 Blood NO GROWTH TO DATE. Blood Culture - Preliminary Resulted 02/10/17 1020 Blood NO GROWTH TO DATE. Gram Stain - Final Complete 02/07/17 1345 Drainage-Deep Lumbar Gram Stain - Final Complete 02/07/17 1345 Drainage-Deep Abdomen Fungal Culture - Preliminary Resulted 02/07/17 1235 Cerebral Spinal Fluid NO YEAST OR FUNGUS ISOLATED - REPORT ... Blood Culture - Preliminary Resulted 02/07/17 0949 Blood NO GROWTH TO DATE. Blood Culture - Preliminary Resulted 02/07/17 0943 Blood NO GROWTH TO DATE. Last 24 Hours Test 02/11/17 16:27 02/11/17 18:56 02/11/17 20:04 02/11/17 20:24 Bedside Glucose 104 mg/dl 69 mg/dl 103 mg/dl Activated Partial Thromboplast Time 37.0 SECONDS Partial Thromboplastin Ratio 1.4 Test 02/11/17 23:49 02/12/17 02:32 02/12/17 03:54 02/12/17 04:44 Bedside Glucose 90 mg/dl 120 mg/dl Activated Partial Thromboplast Time 43.2 SECONDS Partial Thromboplastin Ratio 1.7 White Blood Count 6.00 K/uL Red Blood Count 2.85 M/uL Hemoglobin 8.2 g/dL Hematocrit 24.7 % Mean Corpuscular Volume 86.7 fL Mean Corpuscular Hemoglobin 28.8 pg Mean Corpuscular Hemoglobin Concent 33.2 g/dl Platelet Count 154 K/uL Mean Platelet Volume 9.2 fL Neutrophils (%) (Auto) 63.4 % Lymphocytes (%) (Auto) 16.3 % Monocytes (%) (Auto) 12.8 % Eosinophils (%) (Auto) 7.0 % Basophils (%) (Auto) 0.3 % Neutrophils # (Auto) 3.80 K/uL Lymphocytes # (Auto) 0.98 K/uL Monocytes # (Auto) 0.77 K/uL Eosinophils # (Auto) 0.42 K/uL Basophils # (Auto) 0.02 K/uL RDW Standard Deviation 44.9 fL RDW Coefficient of Variation 14.2 % Immature Granulocyte % (Auto) 0.2 % Immature Granulocyte # (Auto) 0.01 K/uL Hypersegmented Polys 1+ Toxic Granulation 1+ Red Blood Cell Morphology Unremarkable Sodium Level 144 mmol/L Potassium Level 3.3 mmol/L Chloride Level 107 mmol/L Carbon Dioxide Level 28 mmol/L Anion Gap 9.0 mmol/L Blood Urea Nitrogen 30 mg/dl Creatinine 1.70 mg/dl Est Creatinine Clear Calc Drug Dose 57.7 ml/min Estimated GFR () 52.9 Estimated GFR (Non- 45.7 BUN/Creatinine Ratio 17.5 Random Glucose 85 mg/dl Calcium Level 8.1 mg/dl Phosphorus Level 2.8 mg/dl Magnesium Level 1.9 mg/dl Test 02/12/17 09:42 Absolute Reticulocyte Count 0.02 10^6/uL Percent Reticulocyte Count 0.7 % Activated Partial Thromboplast Time 46.9 SECONDS Partial Thromboplastin Ratio 1.8 Assessment and Plan (1) Infection of intrathecal pump Assessment & Plan: continue vanco, will require prolonged course
[2017-02-12] MEDS ORDERED: PEPTAMEN INTENSE VHP 1000ML BAG NG SCH (17:00)
--- NOTE | 2017-02-12 17:26 | Pharmacy Progress Note ---
Pharmacy Abx Dose Short Note Date of Service Feb 12, 2017. Assessment & Plan Assessment 51 year old male receiving extended course Vancomycin IV for treatment of infected intrathecal pain pump * Lumbar culture from 01/21/17 grew MSSA * Day #12 of Vanc IV this admission Plan Vancomycin * Last dose of Vancomycin IV (1250 mg) was given 02/11 @ 0600. Further dosing was held until trough level could be evaluated due to IVAN and supratherapeutic level. * Trough level of 10.8 mcg/mL is subtherapeutic * Vanc 1000 mg IV will be given now followed by a random level on 10/11 am. * Goal trough level: 20 mcg/mL Pharmacy will continue to follow and will adjust dose/frequency as necessary. Thank you.
[2017-02-12] MEDS ORDERED: VANCOMYCIN INJ 1,000 MG in SODIUM CHLORIDE 0.9% 250ML 250 ML IV ONE (17:30)
[2017-02-12] MEDS: DRONABINOL 2.5 MG CAP PO SCH (20:19)
[2017-02-13] VITALS (20 sets, daily range): BP systolic 119–171; BP diastolic 64–105; PULSE 76–91; TEMP 36.4–37; O2SAT 94–98
[2017-02-13] MEDS: CHECK CLONIDINE PATCH PLACEMENT SCH ×3 (00:18→16:00)
[2017-02-13] MEDS: LEVALBUTEROL 1.25MG/0.5ML NEB INH SCH ×4 (02:35→20:35)
[2017-02-13] MEDS: IPRATROPIUM BROMIDE NEB SOLN 0.02% 2.5 ML VIAL INH SCH ×4 (02:35→20:35)
[2017-02-13 05:19] LABS: HEMATOCRIT 25.8 % (42-52); MEAN CELL VOLUME 87.5 fL (80-100); MEAN CORPUSCULAR HEMOGLOBIN 28.5 pg (25-34); MEAN CORPUSCULAR HGB CONC 32.6 g/dl (32-36); MEAN PLATELET VOLUME 9.6 fL (7.4-10.4); PLATELET COUNT 181 K/uL (130-400); RED BLOOD COUNT 2.95 M/uL (4.7-6.1); WHITE BLOOD COUNT 4.27 K/uL (4.8-10.8)
[2017-02-13 05:33] LABS: PARTIAL THROMBOPLASTIN RATIO 1.2
[2017-02-13 05:44] LABS: CALCIUM 8.5 mg/dl (8.5-10.1); CREATININE 1.7 mg/dl (0.60-1.40); MAGNESIUM 1.9 mg/dl (1.8-2.4); POTASSIUM 3.7 mmol/L (3.5-5.1)
[2017-02-13 05:50] LABS: PHOSPHORUS 3.4 mg/dl (2.5-4.9)
[2017-02-13] MEDS: DRONABINOL 2.5 MG CAP PO SCH ×2 (08:45→19:05)
[2017-02-13] MEDS: DOCUSATE SODIUM/SENNA 50/8.6MG TAB PO SCH (08:46)
[2017-02-13] MEDS: CEROVITE ADV FORMULA TAB PO SCH (08:46)
[2017-02-13] MEDS: METOPROLOL TARTRATE 25 MG TAB PO SCH ×2 (08:46→20:30)
[2017-02-13] MEDS: NYSTATIN SUSP 500,000 U/5 ML UDC PO SCH ×4 (08:46→20:30)
[2017-02-13] MEDS: LANSOPRAZOLE SOLUTAB 30 MG PO SCH (08:46)
[2017-02-13] MEDS: GABAPENTIN 600 MG TAB PO SCH ×3 (08:46→20:30)
[2017-02-13] MEDS: VENLAFAXINE HCL XR 37.5 MG CAPXR PO SCH (08:47)
[2017-02-13] MEDS: AMLODIPINE BESYLATE 5 MG TAB PO SCH (08:47)
[2017-02-13] MEDS: ASPIRIN 81 MG CHEW PO SCH (08:47)
[2017-02-13] MEDS: PROSOURCE NOCARB 30ML/PKT PO SCH (08:47)
[2017-02-13] MEDS: INSULIN GLARGINE SOLOSTAR 100 UNITS/ML 3 ML PEN SC SCH (08:51)
[2017-02-13] MEDS: INSULIN ASPART 100 UNITS/ML 3 ML PEN SC SCH ×4 (08:51→20:31)
[2017-02-13] MEDS ORDERED: ENOXAPARIN 40 MG/0.4 ML SYR SQ SCH (09:00)
--- NOTE | 2017-02-13 09:33 | Pain Management Progress Note ---
Pain Management Progress Note Date of Service Feb 13, 2017. Subjective Mr. Hamilton reports mild improvement since yesterday. Patient is status post explantation of intrathecal pump and catheter delivery system due to infection, acute confusion, and respiratory failure. He states that his pain is fairly well controlled currently. He does ask for something to take orally for when he has acute pain attacks that typically last 20 minutes which oral Dilaudid has previously helped control. He does feel more oriented today. He has been laying supine as instructed and denies a current headache. Patient is currently utilizing Dilaudid drip. Case discussed with Dr. Hope Objective Vital Signs: Last Vital Signs Documentation Date Time Temp Pulse Resp B/P (MAP) Pulse Ox O2 Delivery O2 Flow Rate FiO2 02/13/17 07:30 81 12 98 Nasal Cannula 3.5 02/13/17 06:00 166/98 (120) 02/13/17 04:00 36.4 02/11/17 02:11 50 Physical Exam: GENERAL: Mr. Hamilton is a 51 year old white male that appears older than his stated age. Speech and cognition is intact. Mood and affect is appropriate. He does not appear in any acute distress. SKIN: The RLQ abdominal incision has a wound vac in place without any erythema or warmth. Thoracolumbar incision is draining mild amount of clear/yellow drainage and bandage is mildly soaked. NEURO: Cranial nerves grossly intact. He is AAO x 3. Laboratory Laboratory Findings 02/13/17 05:02 Assessment 1. Status post explantation of intrathecal catheter and pump due to CSF leak and infection. 2. Status post-respiratory failure. Recommendations 1. Pain is well controlled currently. I have explained to the patient that I do not recommend adding on additional oral narcotics for his acute pain flare- ups given his recent confusion and respiratory failure episode. 2. There is mild CSF leakage noted and patient denies any headache today. This will continue to be monitored.
[2017-02-13] MEDS ORDERED: VANCOMYCIN INJ 1,000 MG in SODIUM CHLORIDE 0.9% 250ML 250 ML IV ONE (10:00)
--- NOTE | 2017-02-13 10:33 | Progress Note ---
Subjective Date of Service: Feb 13, 2017. Subjective Pt evaluation today including: conversation w/ patient, physical exam, chart review, lab review pt seen in follow up, had significant leg pain overnight. no fevers overnight, tmax 37.6 yesterday afternoon. All cultures remain negative. tolerating vanco. wound vac remains. All remaining ros reviewed and are negative. Problem List Medical Problems: (1) Acute kidney injury Status: Acute (2) Altered mental status Status: Acute (3) Anemia Status: Acute (4) Chronic pain Status: Acute (5) Dehydration Status: Acute (6) Dehydration Status: Acute (7) Dehydration Status: Acute (8) Dehydration Status: Acute (9) Diabetes mellitus with hyperglycemia Status: Acute (10) Failure of outpatient treatment Status: Acute (11) Hypomagnesemia Status: Acute (12) Hypomagnesemia Status: Acute (13) Intractable vomiting Status: Acute (14) Intractable vomiting Status: Acute (15) Intrathecal pump infection Status: Acute (16) Orthostatic hypotension Status: Acute (17) Pneumonia Status: Acute (18) Post-operative complication Status: Acute (19) Sepsis Status: Acute (20) Vomiting Status: Acute (21) Vomiting Status: Acute Objective Vital Signs Date Time Temp Pulse Resp B/P (MAP) Pulse Ox O2 Delivery O2 Flow Rate FiO2 02/13/17 10:00 82 15 153/98 (116) 96 Nasal Cannula 3.0 02/13/17 08:00 36.6 86 19 168/94 (118) 97 Nasal Cannula 3.0 02/13/17 07:30 81 12 98 Nasal Cannula 3.5 02/13/17 06:00 85 16 166/98 (120) 96 Nasal Cannula 3.0 02/13/17 04:00 Nasal Cannula 4.0 02/13/17 04:00 36.4 85 12 121/72 (88) 94 Nasal Cannula 3.0 02/13/17 02:35 76 12 94 Nasal Cannula 5.0 02/13/17 02:00 79 14 158/94 (115) 94 Nasal Cannula 3.0 02/13/17 00:00 36.6 85 16 144/103 (117) 96 Nasal Cannula 4.0 02/13/17 00:00 Nasal Cannula 4.0 02/12/17 22:03 83 9 153/88 (109) 97 Nasal Cannula 4.0 02/12/17 20:00 94 Nasal Cannula 4.0 02/12/17 20:00 36.8 85 10 130/61 (84) 97 Nasal Cannula 3.0 02/12/17 19:18 86 10 94 Nasal Cannula 5.0 02/12/17 18:16 81 10 139/81 (100) 92 Humidified Oxygen 5.0 02/12/17 16:01 37.3 85 12 145/83 (103) 90 Humidified Oxygen 5.0 02/12/17 16:00 92 Nasal Cannula 5.0 Humidified Oxygen 02/12/17 14:24 90 12 93 Nasal Cannula 5.0 02/12/17 14:00 85 9 143/86 (105) 93 Nasal Cannula 5.0 02/12/17 12:00 37.6 88 15 150/85 (106) 92 Nasal Cannula 5.0 02/12/17 12:00 Nasal Cannula 5.0 Physical Exam General Appearance: WD/WN, no apparent distress Eyes: normal inspection, EOMI Neck: supple Respiratory/Chest: lungs clear, normal breath sounds, no respiratory distress Cardiovascular: regular rate, rhythm, no edema Abdomen: soft, + pertinent finding (vac in place) Extremities: non-tender, no pedal edema Neurologic/Psychiatric: alert, oriented x 3 Skin: normal color Laboratory Results Item Value Date Time Blood Culture - Preliminary Resulted 02/10/17 1025 Blood NO GROWTH TO DATE. Blood Culture - Preliminary Resulted 02/10/17 1020 Blood NO GROWTH TO DATE. Gram Stain - Final Complete 02/07/17 1345 Drainage-Deep Lumbar Gram Stain - Final Complete 02/07/17 1015 Cerebral Spinal Fluid Last 24 Hours Test 02/12/17 10:55 02/12/17 15:52 02/12/17 16:31 02/12/17 20:16 Bedside Glucose 152 mg/dl 132 mg/dl 125 mg/dl Random Vancomycin Level 10.8 mcg/ml Test 02/13/17 05:02 02/13/17 06:40 White Blood Count 4.27 K/uL Red Blood Count 2.95 M/uL Hemoglobin 8.4 g/dL Hematocrit 25.8 % Mean Corpuscular Volume 87.5 fL Mean Corpuscular Hemoglobin 28.5 pg Mean Corpuscular Hemoglobin Concent 32.6 g/dl RDW Standard Deviation 45.0 fL RDW Coefficient of Variation 14.0 % Platelet Count 181 K/uL Mean Platelet Volume 9.6 fL Activated Partial Thromboplast Time 31.0 SECONDS Partial Thromboplastin Ratio 1.2 Sodium Level 142 mmol/L Potassium Level 3.7 mmol/L Chloride Level 106 mmol/L Carbon Dioxide Level 29 mmol/L Anion Gap 7.0 mmol/L Blood Urea Nitrogen 27 mg/dl Creatinine 1.70 mg/dl Est Creatinine Clear Calc Drug Dose 57.7 ml/min Estimated GFR () 52.9 Estimated GFR (Non- 45.7 BUN/Creatinine Ratio 16.0 Random Glucose 117 mg/dl Calcium Level 8.5 mg/dl Phosphorus Level 3.4 mg/dl Magnesium Level 1.9 mg/dl Total Bilirubin 0.4 mg/dl Direct Bilirubin 0.1 mg/dl Aspartate Amino Transf (AST/SGOT) 21 U/L Alanine Aminotransferase (ALT/SGPT) 32 U/L Alkaline Phosphatase 103 U/L Lactate Dehydrogenase 192 U/L Total Protein 6.7 gm/dl Albumin 2.3 gm/dl Random Vancomycin Level 19.4 mcg/ml Bedside Glucose 156 mg/dl Assessment and Plan (1) Infection of intrathecal pump Assessment & Plan: continue vanco, will require prolonged course, 6 weeks from time of pump removal. will need weekly cbc,cmp, esr, vanco trough maintain 15- 20.
--- NOTE | 2017-02-13 11:41 | ELECTROENCEPHALOGRAPH REPORT ---
FOR: Jeff Sol, CLINICAL DIAGNOSIS: Acute respiratory failure, possible seizure activity. ELECTROENCEPHALOGRAM DIAGNOSIS: Mildly diffusely abnormal EEG during wakefulness. DESCRIPTION OF TRACING: This tracing was done in the ICU is of reasonable technical quality allowing for some muscle movement artifacts. Video analysis of patient movement and behavior is obtained and thus documented head movements which are seen on the EEG is muscle artifacts along with some other ____ movements which were reflected as well. Photic stimulation is performed. Hyperventilation is not. Drowsiness and light sleep are not clearly recorded. During what appears to be clinical wakefulness, there is no evidence for normal background rhythm but rhythm in the alpha range but rather in the upper theta, rhythm of about 8 Hz of maximum frequency which is bilaterally symmetrical in maximum in the posterior head regions. Polymorphic mid to lower frequency of modest amplitude theta activity intermixed with some isolated waveforms in the delta range is seen over all head regions without clear focal or regional predominance other than its predominance in the central regions in a symmetrical fashion. Anterior head region maximum bilaterally symmetrical low voltage fast activity in the beta range is present. Photic stimulation provoked some modest driving response without a photomyogenic or photoparoxysmal component. At no time during the waking tracing is there clear evidence for potentially epileptogenic activity in the form of polyspike or spike wave bursts, focal sharp waves or focal spikes. INTERPRETATION: This EEG is mildly diffusely abnormal in a highly nonspecific fashion which likely correlates with presence of metabolic encephalopathy but does not demonstrate a lateralizing features and more importantly does not demonstrate any potentially epileptogenic activity.
[2017-02-13 12:02] LABS: PLEURAL FLUID GLUCOSE 131 mg/dl
[2017-02-13 12:06] LABS: PLEURAL FLUID SPECIFIC GRAVITY 1.019
[2017-02-13 12:09] LABS: PLEURAL FLUID TOTAL PROTEIN 2.4 g/dl
[2017-02-13] MEDS ORDERED: PEPTAMEN INTENSE VHP 1000ML BAG NG SCH (12:15)
--- NOTE | 2017-02-13 12:26 | Progress Note ---
Internal Med Progress Note Date of Service: Feb 13, 2017. Provider Documentation: SUBJECTIVE: The patient was seen and Examined S/P Drainage of fluid collection from the back S/P Extubation Generally weak Remains reasonably stable Minimal CSF leakage from the back lesion Reasonably stable Still complains of pain at the back -drainage is decreased OBJECTIVE: Vital Signs-as noted below Exam: General-Minimal distress at rest Eyes-normal ENT-normal Neck-Supple Lungs-decreased breath sound bilaterally With widespread crackles Heart-Regular,no murmur appreciated Abdomen-Benign,no masses,bowel sound present Extremities-Trace edema bilaterally Clear drainage from the back wound Neuro-AAOx3 Generally Weak NO focal neuro deficit Lab data as noted below. 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 and severe diabetic gastroparesis s/p gastric pacemaker; chronic pain syndrome on long-term opioids s/p intrathecal pump, HTN, H/O of seizure disorder - recently admitted for infected and leaking intrathecal pump with surgical repair and on long-term antibiotics - presents secondary to worsening back pain and worsening nausea/vomiting Acute Respiratory Failure :S/P Extubation Acute SOB this morning:Differential includes-Fluid overload,CHF,Pneumonia- Aspiration ,Narcotic induced ,exacerbation associated with lung cancer or even ARDS With change in mental status and decreased saturation of 70s Received 1 dose of Narcan,60mg IV Lasix ,CXR and blood tests and started on NRB ABG ordered and the patient is transferred to ICU for continued care Has been on IV Vanco,Cefepime and Clindamycin ID,Ortho and Pain therapist are on board Generally weak and lethargic Clinically a little better today Advised complete bedrest Remains stable Anemia Likely secondary to Ongoing infection Will transfuse 2 units of PRBC S/p 2 units of PRBC Hb 8.4 on 02/13/17 Possible Ongoing Infective process Remains afebrile and no Increase in WCC, Intrathecal Pain Pump is removed PICC line is removed New central line inserted ID is on board Continue current antibiotics-on IV Vanco now Remains afebrile and WCC is normal Continue antibiotics as advised by the ID Persistent Intrathecal Pump Leakage and Infection-Removed Left Paraspinal Abscess Was discharged on 01/31 - during that admission, he had an I&D and stopped CSF leakage He had a PICC line put in and was discharged on 6 weeks of Vancomycin Abdominal/Pelvis CT suggests a persistent abscess around 4.2cm Patient is now on Cefepime, Clindamycin, and Vancomycin Appreciate ID input Appreciate Pain management and Spine Surgery input S/P I&D 02/05/17::No CSF leakage ,Old collection drained S/P Removal of Intrathecal Pain Pump and catheter; Application of Wound Vac on 02/07/17 CSF fluid showed increased WCC ~2000,Gm stain is negative Consulted Wound Care-appreciate input Continue Current antibiotic Leakage from the wound at the back -decreased Bilateral Lower Extremity Swelling Possibly related to low protein Added boost TID-Nutrition consulted US negative for any clot HTN Has been on BB and Amlodipine and Lisinopril Still on the upper side Increase BB to 50mg BID Possible Aspiration Pneumonia Patient has had issues with nausea/vomiting He presented with some shortness of breath issues CXR suggests right perihilar and medial right lung base opacities suggesting atelectasis or pneumonia Added Clindamycin for anaerobic coverage Ongoing antibiotic for other reason No acute issue Anasarca Likely from low protein Received one dose of IV Lasix Add boost glucose control Persistent Nausea/Vomiting He has a gastric pacemaker in, unfortunately, he still has persistent n/v Received one dose of Emend Continue Zofran PRN Chronic Pain on Long-Term Opioids Would appreciate pain management input Currently on PO hydromorphone 4mg q3hrs PRN Will try to avoid IV narcotics Asking for more pain medicine -appreciate Pain therapist input Removal of Intrathecal Pain Pump and catheter Appreciate pain therapy input Insulin Dependent DM2 Currently on Lantus 12 units BID Insulin sliding scale Monitor blood sugars - he presented with hypoglycemia; now slightly hyperglycemic, we will monitor Has been started on IN infusion Hx. of Seizure Disorder continue Keppra DVT ppx Will start Lovenox 40 mg Daily starting at 6 PM this Evening FULL CODE Continue current care in ICU Vital Signs: Date Time Temp Pulse Resp B/P (MAP) Pulse Ox O2 Delivery O2 Flow Rate FiO2 02/13/17 10:00 82 15 153/98 (116) 96 Nasal Cannula 3.0 02/13/17 08:00 Nasal Cannula 02/13/17 08:00 36.6 86 19 168/94 (118) 97 Nasal Cannula 3.0 02/13/17 08:00 Nasal Cannula 3.0 02/13/17 07:30 81 12 98 Nasal Cannula 3.5 02/13/17 06:00 85 16 166/98 (120) 96 Nasal Cannula 3.0 02/13/17 04:00 Nasal Cannula 4.0 02/13/17 04:00 36.4 85 12 121/72 (88) 94 Nasal Cannula 3.0 02/13/17 02:35 76 12 94 Nasal Cannula 5.0 02/13/17 02:00 79 14 158/94 (115) 94 Nasal Cannula 3.0 02/13/17 00:00 36.6 85 16 144/103 (117) 96 Nasal Cannula 4.0 02/13/17 00:00 Nasal Cannula 4.0 02/12/17 22:03 83 9 153/88 (109) 97 Nasal Cannula 4.0 02/12/17 20:00 94 Nasal Cannula 4.0 02/12/17 20:00 36.8 85 10 130/61 (84) 97 Nasal Cannula 3.0 02/12/17 19:18 86 10 94 Nasal Cannula 5.0 02/12/17 18:16 81 10 139/81 (100) 92 Humidified Oxygen 5.0 02/12/17 16:01 37.3 85 12 145/83 (103) 90 Humidified Oxygen 5.0 02/12/17 16:00 92 Nasal Cannula 5.0 Humidified Oxygen 02/12/17 14:24 90 12 93 Nasal Cannula 5.0 02/12/17 14:00 85 9 143/86 (105) 93 Nasal Cannula 5.0 Lab Results: Results Past 24 Hours Test 02/12/17 15:52 02/12/17 16:31 02/12/17 20:16 02/13/17 05:02 Range/Units Random Vancomycin Level 10.8 19.4 mcg/ml Bedside Glucose 132 125 70-99 mg/dl White Blood Count 4.27 4.8-10.8 K/uL Red Blood Count 2.95 4.7-6.1 M/uL Hemoglobin 8.4 14.0-18.0 g/dL Hematocrit 25.8 42-52 % Mean Corpuscular Volume 87.5 80-100 fL Mean Corpuscular Hemoglobin 28.5 25-34 pg Mean Corpuscular Hemoglobin Concent 32.6 32-36 g/dl RDW Standard Deviation 45.0 36.4-46.3 fL RDW Coefficient of Variation 14.0 11.5-14.5 % Platelet Count 181 130-400 K/uL Mean Platelet Volume 9.6 7.4-10.4 fL Activated Partial Thromboplast Time 31.0 21.0-31.0 SECONDS Partial Thromboplastin Ratio 1.2 Sodium Level 142 136-145 mmol/L Potassium Level 3.7 3.5-5.1 mmol/L Chloride Level 106 98-107 mmol/L Carbon Dioxide Level 29 21-32 mmol/L Anion Gap 7.0 3-11 mmol/L Blood Urea Nitrogen 27 7-18 mg/dl Creatinine 1.70 0.60-1.40 mg/dl Est Creatinine Clear Calc Drug Dose 57.7 ml/min Estimated GFR () 52.9 Estimated GFR (Non- 45.7 BUN/Creatinine Ratio 16.0 10-20 Random Glucose 117 70-99 mg/dl Calcium Level 8.5 8.5-10.1 mg/dl Phosphorus Level 3.4 2.5-4.9 mg/dl Magnesium Level 1.9 1.8-2.4 mg/dl Total Bilirubin 0.4 0.2-1 mg/dl Direct Bilirubin 0.1 0-0.2 mg/dl Aspartate Amino Transf (AST/SGOT) 21 15-37 U/L Alanine Aminotransferase (ALT/SGPT) 32 12-78 U/L Alkaline Phosphatase 103 45-117 U/L Lactate Dehydrogenase 192 87-241 U/L Total Protein 6.7 6.4-8.2 gm/dl Albumin 2.3 3.4-5.0 gm/dl Test 02/13/17 06:40 02/13/17 11:40 Range/Units Bedside Glucose 156 70-99 mg/dl Pleural Fluid pH 7.34 7.3-7.4 Pleural Fluid Specific [place] 1.019 Pleural Fluid Total Protein 2.4 g/dl Pleural Fluid Albumin 1.1 g/dl Pleural Fluid LDH 191 IU Pleural Fluid Glucose 131 mg/dl Microbiology Results 02/13/17 Gram Stain, Received Pending 02/13/17 Bacterial Culture, Received Pending
[2017-02-13 13:39] LABS: PLEURAL FLUID APPEARANCE CLOUDY; PLEURAL FLUID COLOR RED; PLEURAL FLUID MONONUC RELAT 86.1 %; PLEURAL FLUID POLYNUC 13.9 %; PLEURAL FLUID SOURCE LEFT LUNG; PLEURAL FLUID WBC (A) 290 /uL
--- NOTE | 2017-02-13 14:02 | Pharmacy Progress Note ---
Pharmacy Abx Dose Short Note Date of Service Feb 13, 2017. Assessment & Plan Pharmacy has been consulted for: * Glycemic Control * Vancomycin IV therapy Assessment * 51 year old male receiving VANCOMYCIN IV for intrathecal pain pump site infxn , MSSA in CSF culture w/ ANNE MARIE = 2 * Planned duration of therapy 6 weeks * Tmax 37.6 last 24 hrs, WBC 4.3, VSS - still hypertensive at times, HR 70-80's * Repeat cx's this admit remain negative * Mental status improved this AM * Renal fxn: SCr basically unchanged vs yesterday but still above baseline of ~1 -1.2, UO remains good * Glycemic control acceptable over the last 24 hrs, BSGs ranging 117-156, 21 units of SQ insulin administered - and Peptamen feeds @65cc/hr running at one point. Peptamen feeds turned off this AM and patient is ordered a diet. * Current insulin orders performed well over last 24 hrs and are still reasonable. Will follow BSG pattern today and adjust if needed. Plan Vancomycin * Random level of 19.4 mcg/mL drawn this AM is therapeutic * Dosing vancomycin in this patient has been challenging due to changing renal fxn. Patient was last given a dose of vanco 1gm @1730 yesterday when random level returned 10.8mcg/mL. The therapeutic level drawn this AM was drawn ~12 hrs after this 1gm dose. I anticipate he will require a Q 18-24 hr dosing interval. Doses of 1500mg IV Q 24 hrs and 1250mg IV Q 24 hrs have led to supratherapeutic levels earlier this admit. * Plan to give 1gm today @1000 and repeat random level w/ AM labs * Goal trough level: 15 to 20 mcg/mL due to site of infxn and organism w/ ANNE MARIE 2 ; plan is to redose when within this range. Dosing based upon random AM level may be necessary initially. Glycemic Control * Continue Lantus 20 units Q AM * Continue correction factor 20mg/dL/unit * Continue carb ratio of 1 unit per 7gm carbs * Continue goal range 140 - 180 mg/dL Pharmacy will continue to follow and will adjust dose/frequency as necessary. Thank you.
--- NOTE | 2017-02-13 16:53 | Critical Care Progress Note ---
Critical Care Progress Note Date of Service Feb 13, 2017. ICU Day ICU Day Number: [address] Sol Subjective The patient was seen and examined at bedside. No acute overnight events. Sinus rhythm in the 70s on tele. Pt is more awake than the previous day. Stating how much he loves [place] weather. NG tube in place in the AM. Peptamen held because pt was eating. Plan of care was described to the patient and all questions were answered. ROS: No chest pain, no SOB, no dyspnea on exertion, no palpitations, no fevers, no chills, no nausea, no vomiting, no diarrhea, no dysuria, no rash. +Back Pain Objective General Appearance: Well nourished, no distress. Pt is eating on his own. Pt is sitting up in bed. Much more awake and alert than previous day. Eyes: PERRLA, no discharge, EOMI, 2 mm in size ENT: normal ear exam, normal nasal exam, normal mouth exam Neck: normal range of motion, no tenderness, trachea midline Respiratory: CTA anteriorly. Cardiovasular: regular rate/rhythm, normal S1S2, normal peripheral pulses Abdomen: non tender, no rebound, no masses, right lower quadrant incision with VAC dressing application. NG tube removed. Back: Lumbar incision dressing is dry. Upper Extremities: no edema, no deformity, pt is sitting up, was able to sit at edge of bed for a prolonged period. Lower Extremities: no edema, no deformity, moving extremities to command, good power. After prolonged sitting pt complained of back pain. Neuro: moves spontaneously all 4 extremities, quiet speech, dilautid drip is running at 0.6mg/hr Current SOFA Score SOFA Score Response (Comments) Value Platelets (x10) > 150 0 Bilirubin (mg/dL) < 1.2 0 Ashvin Coma Score 15 0 Level of Hypotension No Hypotension 0 Creatinine (mg/dL) 1.2 - 1.9 1 Total 1 Assessment & Plan 51M with a PMHx of non small cell lung CA s/p resection and chemo (not completed ), intrathecal pump for chronic back pain p/w back pain two days after being discharged from [facility] [place] [place] with a PICC line for an MSSA infection. The thecal insertion site was found to have an abscess, CSF studies showed an increased WBC count. Pt is being treated for a suspected CSF infection. Intrathecal pump was removed and abscess was drained. Pt was intubated on 02/07/17 for encephalopathy and extubated on 02/10/17. PICC line was removed on 02/10/17 and a triple lumen IJ line was placed. Pt received a 10 day course of Cefepime and Clindamycin. Pt continues to be on Vancomycin. Pt is on a Dilautid Drip ( ranging between 0.5-1mg/hr). Pt switched to tolerating PO feeds on 02/12/17. Oxygen requirement has been titrated down to 3-5LNC. CTA showed no evidence of PE despite being at high risk 2/2 to Lung CA and prolonged hospital course. CT did show increasing pleural effusions and pulm edema. Thoracocentesis on 02/13 drained over 1L of brown fluid. Cytology on that fluid is pending. Neuro: * AAOx3. CAM negative. Mental status and Appetite is much improved. * Pt was intubated on 02/07 for metabolic encephalopathy 2/2 to sepsis and extubated on 02/10/17. CT Scan of head was normal. * Pain control with Dilaudid drip, approx 0.6mg /h. Holding home Clonidine. * Per Ortho pt must lay supine to reduce pain (this will however increase his aspiration risk). * Neuropathic Pain: Neurontin 600mg PO TID. * Mood: c/w Venlafaxine 37.5mg daily. * Holding Keppra - this was a home med that was started for neuropathic pain. * EEG- non specific findings, no seizure activity. * MRI contraindicated due to Gastric Stimulator. (we called the Biomedical Engineering Supervisor - this can also be confirmed on the Biomedical Engineering Supervisor's website) CV - * EKG from 02/01/17 was normal sinus rhythm. * Echo on 02/03/17 showed moderate LVH, moderate MR, elevated R VSP and an EF of 60-65%. * HTN: c/w Amlodipine 10mg daily, Lisinopril 10mg daily, restarting Lopressor 25mg BID. * 8 beat run of VTACH on monitor on 02/12/17, no events since. Resp - * Pt had a new oxygen requirement. We originally suspected Aspiration Pneumonia however bronchoscopy over the weekend showed no changes. * We have now titrated down the oxygen to 3-5L via NC * Pt's ABG shows that he is hypoxic and retaining, UE and LE dopplers were negative. CT for PE today was negative. He did not complete his course of treatment for Lung CA. We will start Lovenox SQ 40mg tomorrow after thoracocentesis. Hold Hep Drip. Pt is extremely high risk for DVTs. * Thoracocentesis on 02/13/17 drained over 1L of fluid, we will follow cytology. * c/w Xopenex / Ipratropium Q6H. Renal/ - * IVAN: Creatinine downtrending, 1.9-->1.7-->1.7, possibly related to 2 units PRBCs received Saturday web mobile designer. * - 1.0L to date * Holding IVF but is getting 30mls/hr via the Dilaudid drip. * CT showed pleural effusions and possible Pulm edema and remarked on Anasarca, we do not want to fluid overload. Recent echo was normal. GI/Diet: * Patient is eating very well today, we can attribute this to the Marinol 5mg BID started yesterday. Will continue the Marinol. * Gastroparesis with Gastric Stimulator: Pt has been having frequent BM, obstruction is not an issue at present. * Gastric Stimulator is not compatible with MRI machine. * GI Proph: Lansoprazole 30mg PO daily. Endo: * Blood Sugars running high, now on insulin. Pt had a post prandial BS of 43 today, will loosen the Novolog coverage to 1unit for 15kcals. * HBA1C was 7.2 in mid January. * Electrolytes: Na+ 142, K+ 3.7, Mg2+ 1.9, Phos 3.4 Heme: * Hgb 8.4 s/p 2 units PRBC, Platelets 155 WNL. * Absolute Retic count and % Retic count is normal. * DVT Proph (high risk): Restarting Lovenox 40 SQ daily ID: * Pt continues to have slightly elevated temps, this may be infectious or secondary to pain/ or a lower opioid regimen. * ID on board, likely source for sepsis was the intrathecal port (now removed), continuing Vanco (Day#12) . S/p Cefepime (10 days) and Clindamycin (9-10 days) * CSF and Blood cultures negative to date. * Defer to ID for Vanco stop date. MSK - * Chronic back pain control as above. * PT and OT have signed off, however because of his increased energy today I will reconsult tomorrow. Full Code Resident Physician Supervision Note: Dr. Brand was resident physician during care of patient. I separately evaluated patient and did history and exam. I discussed the case with the resident and generally agree with the findings and plan. Patient's mental status significantly improved today. Was able to complete her left chest thoracentesis. No evidence of infection at this time, we'll continue vancomycin Fridays recommendations of 6 weeks status post intrathecal catheter removal. Acute kidney injury appears to continue to improve. Patient' s pain appears to be controlled on a Dilaudid infusion at this point with minimal need for breakthrough medication. Hemodynamically he is remained stable. He does have bilateral pleural effusions and mild oxygen requirement, this is likely reactionary, however we are still waiting for cytology of the left pleural effusion. Patient is now eating, we have held his tube feedings. He is still at risk for aspiration given significant gastroparesis. He has an anemia, we have restarted his DVT prophylaxis as there is no evidence of a PE on contrasted CT scan of the chest. Progressive CSF leak there still appears to be drainage of the wound. We will coordinate with Dr. Ford and hopefully be able to transfer the patient for possible neurosurgical intervention in the next 24-48 hours. Documented By: Jeff Sol DO [place] II Score Date Score Was Generated: Feb 09, 2017 Consults & Procedures Consultants: Anesthesia Critical care Infectious disease Pain Management Wound Care Ortho Procedures: Discontinuation of intrathecal pump Intubation on 02/07 Extubation on 02/10 IJ Triple Lumen insertion on 02/10 PICC line removal on 02/10 Data Medications: Current Inpatient Medications Medications (Trade) Dose Ordered Sig/Cal Route Start Time Stop Time Status Last Admin Dose Admin Glucose (Glucose 40% Gel) 15-30 GRAMS 15 GRAMS... UD PRN PO 02/02/17 03:45 03/04/17 03:44 Glucose (Glucose Chew Tab) 4-8 Tablets 4 Tabl... UD PRN PO 02/02/17 03:45 03/04/17 03:44 Dextrose (Dextrose 50% 50ML Syringe) 25-50ML OF 50% DW IV FOR... UD PRN IV 02/02/17 03:45 03/04/17 03:44 02/11/17 20:15 25 ML Glucagon (Glucagon Inj) 1 mg UD PRN SQ 02/02/17 03:45 03/04/17 03:44 Folic Acid (Folvite Tab) 1 mg QAM PO 02/02/17 09:00 03/04/17 08:59 02/13/17 08:45 1 MG Venlafaxine HCl (effeXOR EXTENDED REL CAP) 37.5 mg QAM PO 02/02/17 09:00 03/04/17 08:59 02/13/17 08:47 37.5 MG Ipratropium Yeso (Atrovent 0.02% 0.5MG/2.5ML Neb) 0.5 mg Q4H PRN INH 02/02/17 04:00 03/04/17 03:59 Levalbuterol (Xopenex 1.25MG/ 0.5ML Neb) 1.25 mg Q4H PRN INH 02/02/17 04:00 03/04/17 03:59 Vancomycin HCl (Consult) 1 ea UD PRN N/A 02/02/17 04:45 03/04/17 04:44 Senna/Docusate Sodium (Senokot S Tab) 1 tab QAM PO 02/02/17 09:00 03/04/17 08:59 02/13/17 08:46 1 TAB Heparin Sodium (Porcine) (Heparin 10 Unit/ ml 5 ml Flush) 5 ml PRN PRN FLUSH 02/03/17 00:30 03/05/17 00:29 02/04/17 17:30 5 ML Ondansetron HCl (Zofran Inj) 4 mg Q6H PRN IV 02/03/17 02:45 03/05/17 02:44 02/05/17 02:05 4 MG Promethazine HCl 12.5 mg/Sodium Chloride 50.5 ml @ 204 mls/hr Q6H PRN IV 02/03/17 02:45 03/05/17 02:44 02/07/17 02:35 204 MLS/HR Amlodipine Besylate (Norvasc Tab) 10 mg DAILY PO 02/04/17 09:00 03/04/17 08:59 02/13/17 08:47 10 MG Miscellaneous Information (Consult Glycemic Management Pharmacy) 1 UD PRN N/A 02/07/17 08:45 03/09/17 08:44 Lisinopril (Zestril Tab) 10 mg QAM PO 02/10/17 09:00 03/06/17 08:59 Future Hold 02/12/17 08:41 10 MG Aspirin (Aspirin Chew) 81 mg QAM PO 02/11/17 09:00 03/11/17 08:59 02/13/17 08:47 81 MG Lansoprazole (Prevacid Solutab) 30 mg DAILY PO 02/11/17 09:00 03/11/17 13:44 02/13/17 08:46 30 MG Multivitamins/ Minerals (Multivitamin W/ Minerals Tab) 1 tab QAM PO 02/11/17 09:00 03/13/17 08:59 02/13/17 08:46 1 TAB Gabapentin (Neurontin Tab) 600 mg TID PO 02/10/17 21:00 03/12/17 20:59 02/13/17 12:24 600 MG Nystatin (Mycostatin Susp) 5 ml QID PO 02/10/17 17:00 02/20/17 16:59 02/13/17 12:21 5 ML Ipratropium Yeso (Atrovent 0.02% 0.5MG/2.5ML Neb) 0.5 mg Q6R INH 02/10/17 21:00 03/12/17 20:59 02/13/17 14:28 0.5 MG Levalbuterol (Xopenex 1.25MG/ 0.5ML Neb) 1.25 mg Q6R INH 02/10/17 21:00 03/12/17 20:59 02/13/17 14:28 1.25 MG Clonidine HCl (Rpafjeat-Vao-3 0.3mg/24hr Patch) 1 patch CQWK TD 02/11/17 10:00 03/13/17 09:59 02/11/17 16:34 1 PATCH Miscellaneous (Remove Clonidine Patch) 1 ea Q7D@0959 N/A 02/18/17 09:59 03/20/17 09:58 Miscellaneous Information (Check Clonidine Patch Placement) 1 ea QS N/A 02/11/17 16:00 03/13/17 15:59 02/13/17 08:45 1 EA Hydromorphone HCl 100 ml @ 0 mls/hr Q0M IV 02/11/17 10:00 02/25/17 09:59 02/11/17 10:55 1.5 MLS/HR Miscellaneous Information ( Icu Electrolyte Replacement Protocol) 1 ea per protocol PRN N/A 02/11/17 12:45 02/18/17 12:44 Insulin Glargine (Lantus Solostar Pen) 20 units DAILY SC 02/12/17 09:00 03/14/17 08:59 02/13/17 08:51 20 UNITS Insulin Aspart (novoLOG ASPART) SLIDING SCALE ACHS SC 02/12/17 11:00 03/14/17 10:59 02/13/17 12:23 9 UNITS Metoprolol Tartrate (Lopressor Tab) 25 mg BID PO 02/12/17 10:00 03/14/17 09:59 02/13/17 08:46 25 MG Ioversol (Optiray 320) 100 ml UD PRN IV 02/12/17 11:00 02/16/17 10:59 Enteral Nutritional Formula (Prosource No Carb) 30 ml DAILY PO 02/13/17 09:00 03/15/17 08:59 02/13/17 08:47 30 ML Dronabinol (Marinol Cap) 5 mg BIDM PO 02/12/17 18:00 03/14/17 17:59 02/13/17 08:45 5 MG Enteral Nutritional Formula (Peptamen Intense VHP) 1,000 ml CONTINUOUS NG 02/13/17 12:15 03/15/17 12:14 Future Hold I & O: 24-Hour Column 02/14/17 07:59 Intake Total 1583 ml Output Total 1650 ml Balance -67 ml Vital Signs: Date Time Temp Pulse Resp B/P (MAP) Pulse Ox O2 Delivery O2 Flow Rate FiO2 02/13/17 14:28 81 12 98 Nasal Cannula 3.5 02/13/17 14:00 83 14 138/74 (95) 95 Nasal Cannula 3.0 02/13/17 12:00 36.8 84 15 148/88 (108) 97 Nasal Cannula 3.0 02/13/17 12:00 Nasal Cannula 3.0 02/13/17 10:00 82 15 153/98 (116) 96 Nasal Cannula 3.0 02/13/17 08:00 Nasal Cannula 02/13/17 08:00 36.6 86 19 168/94 (118) 97 Nasal Cannula 3.0 02/13/17 08:00 Nasal Cannula 3.0 02/13/17 07:30 81 12 98 Nasal Cannula 3.5 02/13/17 06:00 85 16 166/98 (120) 96 Nasal Cannula 3.0 02/13/17 04:00 Nasal Cannula 4.0 02/13/17 04:00 36.4 85 12 121/72 (88) 94 Nasal Cannula 3.0 02/13/17 02:35 76 12 94 Nasal Cannula 5.0 02/13/17 02:00 79 14 158/94 (115) 94 Nasal Cannula 3.0 02/13/17 00:00 36.6 85 16 144/103 (117) 96 Nasal Cannula 4.0 02/13/17 00:00 Nasal Cannula 4.0 02/12/17 22:03 83 9 153/88 (109) 97 Nasal Cannula 4.0 02/12/17 20:00 94 Nasal Cannula 4.0 02/12/17 20:00 36.8 85 10 130/61 (84) 97 Nasal Cannula 3.0 02/12/17 19:18 86 10 94 Nasal Cannula 5.0 02/12/17 18:16 81 10 139/81 (100) 92 Humidified Oxygen 5.0 Laboratory Results: Last 24 Hours Test 02/12/17 20:16 02/13/17 05:02 02/13/17 06:40 02/13/17 11:40 Bedside Glucose 125 mg/dl 156 mg/dl White Blood Count 4.27 K/uL Red Blood Count 2.95 M/uL Hemoglobin 8.4 g/dL Hematocrit 25.8 % Mean Corpuscular Volume 87.5 fL Mean Corpuscular Hemoglobin 28.5 pg Mean Corpuscular Hemoglobin Concent 32.6 g/dl RDW Standard Deviation 45.0 fL RDW Coefficient of Variation 14.0 % Platelet Count 181 K/uL Mean Platelet Volume 9.6 fL Activated Partial Thromboplast Time 31.0 SECONDS Partial Thromboplastin Ratio 1.2 Sodium Level 142 mmol/L Potassium Level 3.7 mmol/L Chloride Level 106 mmol/L Carbon Dioxide Level 29 mmol/L Anion Gap 7.0 mmol/L Blood Urea Nitrogen 27 mg/dl Creatinine 1.70 mg/dl Est Creatinine Clear Calc Drug Dose 57.7 ml/min Estimated GFR () 52.9 Estimated GFR (Non- 45.7 BUN/Creatinine Ratio 16.0 Random Glucose 117 mg/dl Calcium Level 8.5 mg/dl Phosphorus Level 3.4 mg/dl Magnesium Level 1.9 mg/dl Total Bilirubin 0.4 mg/dl Direct Bilirubin 0.1 mg/dl Aspartate Amino Transf (AST/SGOT) 21 U/L Alanine Aminotransferase (ALT/SGPT) 32 U/L Alkaline Phosphatase 103 U/L Lactate Dehydrogenase 192 U/L Total Protein 6.7 gm/dl Albumin 2.3 gm/dl Random Vancomycin Level 19.4 mcg/ml Pleural Fluid Source LEFT LUNG Pleural Fluid Color RED Pleural Fluid Appearance CLOUDY Pleural Fluid WBC 290 /uL Pleural Fluid RBC 59113 /uL Pleural Fluid pH 7.34 Pleural Fluid Specific [place] 1.019 Pleural Fluid Polynuclear WBCs % 13.9 % Pleural Fluid Mononuclear WBCs % 86.1 % Pleural Fluid Total Protein 2.4 g/dl Pleural Fluid Albumin 1.1 g/dl Pleural Fluid LDH 191 IU Pleural Fluid Glucose 131 mg/dl Resident Involvement: Resident Care Provided Care Provided: Adult Hospital Medicine
[2017-02-13] MEDS ORDERED: ENOXAPARIN 30 MG/0.3 ML SYR SQ ONE (17:15)
--- NOTE | 2017-02-13 18:56 | DIAGNOSTIC IMAGING REPORT ---
CHEST ONE VIEW PORTABLE CLINICAL HISTORY: s/p thoracentesis left COMPARISON STUDY: 02/11/2017 FINDINGS: The cardiac and mediastinal contours remain stable. There is a right internal jugular central venous catheter which demonstrates a possible kink at the cervicothoracic inlet.[ There are improving bilateral pulmonary airspace opacities. There is no pneumothorax status post left-sided thoracentesis. There is minor blunting of the lateral costophrenic angles. There is a persistent left paramediastinal triangular opacity at the level of aortic knob. This corresponds an area of focal consolidation/atelectasis on the prior CT scan. IMPRESSION: 1. Improving bilateral pulmonary airspace opacities 2. No evidence of pneumothorax status post thoracentesis. Electronically signed by: Bruce Salamanca M.D. 02/13/2017 6:55 PM Dictated Date/Time: 02/13/2017 6:52 PM
[2017-02-14] VITALS (14 sets, daily range): BP systolic 137–182; BP diastolic 79–103; PULSE 76–96; TEMP 36.6–37.7; O2SAT 94–98; Ht 172.7 cm; Wt 96.1 kg
[2017-02-14] MEDS: IPRATROPIUM BROMIDE NEB SOLN 0.02% 2.5 ML VIAL INH SCH ×3 (01:51→14:19)
[2017-02-14] MEDS: LEVALBUTEROL 1.25MG/0.5ML NEB INH SCH ×3 (01:51→14:19)
[2017-02-14 06:02] LABS: HEMATOCRIT 24.7 % (42-52); MEAN CELL VOLUME 85.8 fL (80-100); MEAN CORPUSCULAR HEMOGLOBIN 27.4 pg (25-34); MEAN PLATELET VOLUME 9.3 fL (7.4-10.4); PLATELET COUNT 200 K/uL (130-400); RED BLOOD COUNT 2.88 M/uL (4.7-6.1); WHITE BLOOD COUNT 3.86 K/uL (4.8-10.8)
[2017-02-14 06:11] LABS: PARTIAL THROMBOPLASTIN RATIO 1.2
[2017-02-14 06:31] LABS: BUN/CREATININE RATIO 17.4 (10-20); CALCIUM 8.3 mg/dl (8.5-10.1); CREATININE 1.7 mg/dl (0.60-1.40); MAGNESIUM 1.7 mg/dl (1.8-2.4); PHOSPHORUS 3.6 mg/dl (2.5-4.9); POTASSIUM 3.9 mmol/L (3.5-5.1)
[2017-02-14] MEDS ORDERED: VANCOMYCIN INJ 1,000 MG in SODIUM CHLORIDE 0.9% 250ML 250 ML IV ONE (07:00)
--- NOTE | 2017-02-14 07:02 | DIAGNOSTIC IMAGING REPORT ---
CHEST ONE VIEW PORTABLE CLINICAL HISTORY: Pleural effusions COMPARISON STUDY: 02/13/2017 FINDINGS: The cardiac and mediastinal contours remain stable. There is a right internal jugular central venous catheter present. There is a persistent small left pleural effusion. Bilateral pulmonary airspace opacities remain similar. There is a persistent left paramediastinal triangular opacity at the level of the aortic knob.[ IMPRESSION: Stable findings Electronically signed by: Bruce Salamanca M.D. 02/14/2017 7:01 AM Dictated Date/Time: 02/14/2017 7:00 AM
[2017-02-14] MEDS: CEROVITE ADV FORMULA TAB PO SCH (07:50)
[2017-02-14] MEDS: METOPROLOL TARTRATE 25 MG TAB PO SCH (07:50)
[2017-02-14] MEDS: AMLODIPINE BESYLATE 5 MG TAB PO SCH (07:50)
[2017-02-14] MEDS: DOCUSATE SODIUM/SENNA 50/8.6MG TAB PO SCH (07:50)
[2017-02-14] MEDS: GABAPENTIN 600 MG TAB PO SCH ×2 (07:50→12:43)
[2017-02-14] MEDS: MAGNESIUM OXIDE 400 MG TAB PO SCH ×3 (07:50→16:27)
[2017-02-14] MEDS: VENLAFAXINE HCL XR 37.5 MG CAPXR PO SCH (07:51)
[2017-02-14] MEDS: LANSOPRAZOLE SOLUTAB 30 MG PO SCH (07:51)
[2017-02-14] MEDS: NYSTATIN SUSP 500,000 U/5 ML UDC PO SCH ×3 (07:52→17:30)
[2017-02-14] MEDS: ASPIRIN 81 MG CHEW PO SCH (07:52)
[2017-02-14] MEDS: CHECK CLONIDINE PATCH PLACEMENT SCH ×3 (07:53→16:39)
[2017-02-14] MEDS: PROSOURCE NOCARB 30ML/PKT PO SCH (07:54)
[2017-02-14] MEDS: INSULIN GLARGINE SOLOSTAR 100 UNITS/ML 3 ML PEN SC SCH (07:56)
[2017-02-14] MEDS: INSULIN ASPART 100 UNITS/ML 3 ML PEN SC SCH ×3 (08:02→17:31)
[2017-02-14] MEDS: DRONABINOL 2.5 MG CAP PO SCH ×2 (08:16→16:27)
[2017-02-14] MEDS ORDERED: ENOXAPARIN 40 MG/0.4 ML SYR SQ SCH (09:00)
--- NOTE | 2017-02-14 11:10 | Discharge Instructions ---
Discharge Instructions Date of Service Feb 14, 2017. Admission Reason for Admission: Respiratory Failure, Acute Discharge Discharge Diagnosis / Problem: CSF leak Discharge Goals Goal(s): Improve function, Therapeutic intervention Activity Recommendations Activity Level: Bedrest . Additional Information Patient informed of condition: Yes Advance Directives: No DNR: No Level of Care: Other (transfer to acute care facility) Communicable Disease: No Prognosis: Stable Current Hospital Diet Patient's current hospital diet: Diabetes Type 2 Diet Discharge Diet Recommended Diet: Diabetes Type 2 Diet Procedures Procedures Performed: Removal of Intrathecal Pain Pump and catheter; Application of Wound Vac Central venous catheter placed right internal jugular, 02/10/2017 discontinued 02/14/2017 Intubation 02/07/2017 extubation 02/10/2017 Bronchoscopy 02/10/2017 Left thoracentesis 02/13/2017 Pending Studies Studies pending at discharge: yes List of pending studies: Pleural fluid cytology Physician Orders On Transfer Special Precautions: Patient to remain in supine position IV Therapy: PICC line for vancomycin administration Dilaudid 0.7 mg per hour Vital Signs: Every 15 minutes Weigh: Daily weights Laboratory Results Hemoglobin A1c Test 01/19/17 22:15 Range/Units Estimated Average Glucose 160 mg/dl Hemoglobin A1c 7.2 H 4.5-5.6 % Medical Emergencies . Who to Call and When: Medical Emergencies: If at any time you feel your situation is an emergency, please call 911 immediately. . Non-Emergent Contact Non-Emergency issues call your: Primary Care Provider Call Non-Emergent contact if: you have a fever . Past History Medical & Surgical History: (1) Pneumonia (2) Infection of intrathecal pump (3) Respiratory failure, acute (4) Intractable nausea and vomiting (5) Diabetes mellitus, type II (6) Gastroparesis (7) Diabetic polyneuropathy . "Provider Documentation" section prepared by Jeff Sol. . Web Site Manager Recommendations Web Site Manager Recommendations: Infectious disease: 6 weeks of antibiotics from pump removal (02/07/2017) trough to be maintained 15-20 Core Measure Problem Core Measures: None [place] Drug Monitoring Program Search Results: no issues identified
--- NOTE | 2017-02-14 11:19 | Procedure Note ---
Procedure Note Date of Service Feb 13, 2017. Procedure Note Critical Care Medicine Procedure Date: 02/13/2017 Procedure: Thoracentesis Pre-procedure Diagnosis: Sided pleural effusion history of lung cancer left lung Post-procedure Diagnosis: same as above Prior to Procedure: Informed Consent: The risks, benefits, indications, potential complications, and alternatives were explained to the patient/family and informed consent was obtained. Attending Staff: Ebenezer Resident/Physician Farmworker Vegetable: Cathie Indications: Patient is a 51-year-old male patient with a new oxygen requirement and left-sided pleural effusion with history of lung cancer in the left side status post resection. The identity of the patient was confirmed and a bedside time out was performed. Description of Procedure: Patient positioned, prepped and draped in usual sterile fashion. Fluid collection identified at bedside by ultrasound on the left side. 1% Lidocaine without epinephrine was used to anesthetize the area. A thoracentesis kit was used to enter the plural space and the catheter introduced over the needle. Pleural fluid was then aspirated. Post procedure chest x-ray pending. Complications: None Findings: 1000 ML's of serous fluid was removed Total Fluid Removed: Thousand mL Color of Fluid: Serous Sent for: Gram stain culture cell count pH, LDH Estimated blood loss: None
--- NOTE | 2017-02-14 11:29 | Pharmacy Progress Note ---
Pharmacy Abx Dose Short Note Date of Service Feb 14, 2017. Assessment & Plan Pharmacy has been consulted for: * Glycemic Control * Vancomycin IV therapy Assessment * 51 year old male receiving VANCOMYCIN IV for intrathecal pain pump site infxn , MSSA in CSF culture w/ ANNE MARIE = 2 * Planned duration of therapy 6 weeks, Day 1 = 01/14/17 * afebrile last 24 hrs, WBC 3.9, still hypertensive at times, HR higher today 80 -90's * Repeat cx's this admit remain negative * Mental status deteriorated again, RN reporting hallucinations * Renal fxn: SCr unchanged over the last 2 days but still above baseline of ~1- 1.2, UO remains good * BSGs have ranged 43-128 over the last 24 hrs. Patient experienced severe hypoglycemia yesterday pre-dinner, likely secondary to excessive prandial insulin w/ lunch. Resident adjusted the carb ratio to prevent future post- prandial lows (CR 7 --> CR 15). Plan is to trial this new CR today. Given is requiring 20-30 units of insulin per day over the last 2 days, I suspect his insulin needs may be less. Will lessen the correctional dose as well. Fasting BSG at goal this AM (115) therefore will continue the same Lantus dose. * Will follow BSG pattern today and adjust if needed. Plan Vancomycin * Random level of 18.4 mcg/mL drawn this AM is therapeutic (drawn at 0540), last dose of vancomycin was 1000mg given at 1052 yesterday, thus drawn ~19 hours after dose was hung. * Dosing vancomycin in this patient has been challenging due to changing renal fxn. * I anticipate he will require a Q 18-24 hr dosing interval. Doses of 1500mg IV Q 24 hrs and 1250mg IV Q 24 hrs have led to supratherapeutic levels earlier this admit. Currently it appears a dose of 1gm IV Q 20-24 hrs will be appropriate. * Will give 1gm IV x 1 this AM and repeat random level w/ AM labs tomorrow - if not transferred. Will continue to dose based upon random AM levels. * Goal trough level: 15 to 20 mcg/mL due to site of infxn and organism w/ ANNE MARIE 2 ; plan is to redose when within this range. Glycemic Control * Continue Lantus 20 units Q AM * Change correction factor to 30mg/dL/unit * Continue carb ratio of 1 unit per 15gm carbs * Continue goal range 140 - 180 mg/dL Pharmacy will continue to follow and will adjust dose/frequency as necessary. Thank you.
[2017-02-14] MEDS ORDERED: METOPROLOL TARTRATE 25 MG TAB PO ONE (11:30)
--- NOTE | 2017-02-14 11:50 | Discharge Summary ---
Discharge Summary Date of Service Feb 14, 2017. Discharge Summary Admission Date: Feb 02, 2017 at 03:24 Discharge Date: Feb 14, 2017 Discharge Disposition: Acute care facility Principal Diagnosis: CSF leak Secondary Diagnoses/Problems: Diabetes mellitus type 2 Diabetic polyneuropathy Severe gastroparesis status post gastric stimulator Lung cancer diagnosed January 2016 status post left lobectomy (05/25/2016) status post approximately 4 rounds chemotherapy Hypertension Infection of intrathecal pump Respiratory failure: Resolved Pleural effusion status post left thoracentesis 02/13/2017 Procedures: Removal of Intrathecal Pain Pump and catheter; Application of Wound Vac Central venous catheter placed right internal jugular, 02/10/2017 discontinued 02/14/2017 Intubation 02/07/2017 extubation 02/10/2017 Bronchoscopy 02/10/2017 Left thoracentesis 02/13/2017 Consultations: Infectious Disease Pain Management Wound Care Critical Care Medicine Orthopedic Surgery Pending Studies/Follow-Up: Pleural cytology Admission Information HPI (per Admitting provider): Patient was initially admitted to [facility] on 02/01/2017 with a working diagnosis of pneumonia and increasing back pain. Of note the patient had previously been admitted for pain control with revision of an intrathecal pain pump with a hospitalization dated 01/14/2017 2 01/31/2017. During the previous hospitalization there was revision of intrathecal pain pump for a presumptive CSF leak. Cultures from that admission include a surface culture obtained in the emergency department which grew MSSA. This culture was thought to represent surface contamination. A second culture was obtained during the operative procedure have grown MSSA. This was also thought to represent possible contamination as the space has been opened surgically several times. Per anesthesia report, there was no evidence of brandi abscess nor purulence seen in the operative bed. Infectious disease has been consult and have recommended a course of 6 weeks of IV vancomycin. During this admission the patient underwent an echocardiogram on 02/03/2017 findings: * The study was technically adequate. Left Ventricle * The left ventricle is normal in size. * There is moderate concentric left ventricular hypertrophy. * Left ventricular systolic function is normal. * Ejection Fraction = 60-65%. * The left ventricular wall motion is normal. Right Ventricle * The right ventricle is normal size. * The right ventricular systolic function is normal. Atria * The left atrial size is normal. * Right atrial size is normal. * There is no evidence of atrial septal defect, but resolution does not allow assessment for a patent foramen ovale. Mitral Valve * The mitral valve leaflets appear thickened, but open well. * There is no mitral valve stenosis. * There is moderate mitral regurgitation. Tricuspid Valve * The tricuspid valve anatomy is normal. * There is no tricuspid stenosis. * There is mild tricuspid regurgitation. * Right ventricular systolic pressure is elevated at 40-50mmHg. Aortic Valve * The aortic valve is trileaflet. * Aortic stenosis is absent. * There is no significant aortic regurgitation. Pulmonic Valve * The pulmonary valve is not well seen, but the Doppler examination is normal without significant regurgitation or stenosis. Patient underwent surgical exploration with spine surgery as well as anesthesia pain management on February 05. Antibiotic beads were placed at that time and no CSF leak was noted as well as no evidence of abscess or purulence. A tissue sample was sent for culture and Gram stain. This specimen has not had any bacterial growth. Over the next 48 hours the patient was also requiring enteral and parenteral narcotic medications. The patient became somnolent and developed a new oxygen requirement. There was concern for oversedation secondary to medication effect as well as considerations that the intrathecal catheter may have moved due to the severe retching associated with the patient' s severe chronic gastroparesis. Given the mental status changes and occult CSF infection was also entertained. A CSF specimen from the catheter was obtained and sent for culture and Gram stain on February 07. This specimen also does not have any growth to date nor organisms seen on Gram stain. CSF evaluation revealed 1800 WBCs in the setting of treatment with antibiotics. Due to this decision was made to proceed with explantation of the intrathecal catheter as well as pain pump. This was removed on 02/07/2017 as well as placement of a wound VAC. During this procedure culture was obtained of the deep abdominal pocket as well as the lumbar wound. These specimens have not demonstrated any growth to date nor were any organisms seen on Gram stain. Postoperatively the patient experienced respiratory insufficiency as well as continued lethargy requiring transfer to the critical care unit. Patient was noted to have a PICC line that is been inserted previously on 01/17/2017 for IV vancomycin administration. This PICC line was removed and a central venous catheter was placed. The patient was also intubated for airway protection. The patient had a drop in his hemoglobin and hematocrit and received a blood transfusion of 2 units on 02/08/2017. The patient also had a mild IVAN during this period with his creatinine increasing from baseline of approximately 1 to that of 1.8, 1.9 and has since improved to 1.7. The patient did experience a fever on 02/10/2017 which prompted a bronchoscopy for possible pneumonia. Per bronchoscopy report the lungs did not show evidence of brandi purulence. The patient was able to be extubated later that day. Over the next 72 hours the patient's mental status continued to slowly improve, the acute encephalopathy was thought to be secondary to parenteral narcotic administration in the setting of an IVAN allowing accumulation of metabolites. The patient did undergo an electroencephalogram on February 13 to exclude epileptic activity, this revealed: mildly diffuse abnormality and a high nonspecific fashion which likely correlates with the presence of a metabolic encephalopathy but does not demonstrate lateralizing features more importantly does not demonstrate any potential epileptogenic activity. Given the patient's persistent oxygen requirement, and moderate risk for PE given his cancer history he underwent a contrasted CT scan of the chest on 02/12/2017. Findings: 1. No evidence of pulmonary embolus. 2. Significant interval decrease in left lung infiltrates compatible with improving pneumonia. 3. Interval increase in right lung infiltrates. Given the presence of pleural effusions and interlobular septal thickening, a prominent component of pulmonary edema is likely. However, it is difficult to exclude spread of infection or, less likely, aspiration. 4. New right and increase in left pleural effusions. 5. Reactive mediastinal and hilar lymph nodes. 6. Anasarca On 02/13/2017 the patient underwent a left thoracentesis for further evaluation of the pleural effusion. It is noted that the patient's prior diagnosis of non- small cell lung cancer occurred in the left chest. Pleural protein the serum protein ratio was 0.35 however LDH ratio is essentially 1, there were 220 white blood cells with a mononuclear predominance of 86%. Pleural pH was 7.34, glucose 131. This appears to be an exudative pleural effusion, cytology is still pending at the time of this dictation. There were no organisms seen on Gram stain and cultures remain negative to date. Currently the patient is being treated with vancomycin for 6 weeks from explantation of hardware (February 07) with goal trough 15-20. The patient had finished a ten-day course of cefepime from February 01 until February 11. The patient has also finished a 10 day course of clindamycin from February 02 until February 11. The patient's chronic narcotic requirements are being met with 0.7 mg intravenous hydromorphone, and transdermal clonidine patch 0.3 mg per 24 hours. The patch was placed February 11. The patient's baseline hypertension is typically controlled with 25 mg metoprolol twice a day, we have increased his beta christi to 50 mg twice a day. He additionally takes 81 mg of aspirin and 10 mg of Norvasc. We have continued to hold his 10 mg of lisinopril as his creatinine continues to improve. Patient had been previously treated with Keppra for diabetic neuropathy, this was discontinued in the last 48 hours given his mental status changes. Patient was also started on Megace 5 mg twice a day to stimulate appetite given the anasarca and inadequate caloric intake during the hospitalizations. He is also receiving 37.5 mg Effexor extended release capsules. The patient's blood sugars are currently controlled with a baseline long-acting insulin, 20 units of Lantus daily as well as additional regular insulin for carbohydrate coverage. Physical Exam (per Admitting): General Appearance: No acute distre no acute distressss Eyes: PERRLA, no discharge, EOMI, 2 mm in size ENT: normal ear exam, normal nasal exam, normal mouth exam Neck: normal range of motion, no tenderness, trachea midline Respiratory: CTA anteriorly. Cardiovasular: regular rate/rhythm, normal S1S2, normal peripheral pulses Abdomen: non tender, no rebound, no masses, right lower quadrant incision with VAC dressing application. Back: Lumbar dressing in place Lower Extremities: Mild generalized edema, no deformity, moving extremities to command, good power. Neuro: Alert and oriented 3 conversant Psych: Normal affect Hospital Course This is a 51 year old male with a PMH of NSCLC stage 3 with incomplete chemotherapy secondary to nausea/vomiting and intolerance.Insulin dependent DM2 with complications including neuropathy and severe diabetic gastroparesis s/p gastric pacemaker; chronic pain syndrome on long-term opioids s/p intrathecal pump, HTN, H/O of seizure disorder - recently admitted for infected and leaking intrathecal pump with surgical repair and on long-term antibiotics - presents secondary to worsening back pain and worsening nausea/vomiting Acute Respiratory Failure :S/P Extubation Acute SOB this morning:Differential includes-Fluid overload,CHF,Pneumonia- Aspiration ,Narcotic induced ,exacerbation associated with lung cancer or even ARDS With change in mental status and decreased saturation of 70s Received 1 dose of Narcan,60mg IV Lasix ,CXR and blood tests and started on NRB ABG ordered and the patient is transferred to ICU for continued care Has been on IV Vanco,Cefepime and Clindamycin ID,Ortho and Pain therapist are on board Generally weak and lethargic Clinically a little better today Advised complete bedrest Remains stable Anemia Likely secondary to Ongoing infection Will transfuse 2 units of PRBC S/p 2 units of PRBC Hb 8.4 on 02/13/17 Possible Ongoing Infective process Remains afebrile and no Increase in WCC, Intrathecal Pain Pump is removed PICC line is removed New central line inserted ID is on board Continue current antibiotics-on IV Vanco now Remains afebrile and WCC is normal Continue antibiotics as advised by the ID Persistent Intrathecal Pump Leakage and Infection-Removed Left Paraspinal Abscess Was discharged on 01/31 - during that admission, he had an I&D and stopped CSF leakage He had a PICC line put in and was discharged on 6 weeks of Vancomycin Abdominal/Pelvis CT suggests a persistent abscess around 4.2cm Patient is now on Cefepime, Clindamycin, and Vancomycin Appreciate ID input Appreciate Pain management and Spine Surgery input S/P I&D 02/05/17::No CSF leakage ,Old collection drained S/P Removal of Intrathecal Pain Pump and catheter; Application of Wound Vac on 02/07/17 CSF fluid showed increased WCC ~2000,Gm stain is negative Consulted Wound Care-appreciate input Continue Current antibiotic Leakage from the wound at the back -decreased Bilateral Lower Extremity Swelling Possibly related to low protein Added boost TID-Nutrition consulted US negative for any clot HTN Has been on BB and Amlodipine and Lisinopril Still on the upper side Increase BB to 50mg BID Possible Aspiration Pneumonia Patient has had issues with nausea/vomiting He presented with some shortness of breath issues CXR suggests right perihilar and medial right lung base opacities suggesting atelectasis or pneumonia Added Clindamycin for anaerobic coverage Ongoing antibiotic for other reason No acute issue Anasarca Likely from low protein Received one dose of IV Lasix Add boost glucose control Persistent Nausea/Vomiting He has a gastric pacemaker in, unfortunately, he still has persistent n/v Received one dose of Emend Continue Zofran PRN Chronic Pain on Long-Term Opioids Would appreciate pain management input Currently on PO hydromorphone 4mg q3hrs PRN Will try to avoid IV narcotics Asking for more pain medicine -appreciate Pain therapist input Removal of Intrathecal Pain Pump and catheter Appreciate pain therapy input Insulin Dependent DM2 Currently on Lantus 12 units BID Insulin sliding scale Monitor blood sugars - he presented with hypoglycemia; now slightly hyperglycemic, we will monitor Has been started on IN infusion Hx. of Seizure Disorder continue Keppra DVT ppx Will start Lovenox 40 mg Daily starting at 6 PM this Evening FULL CODE Continue current care in ICU Total time spent on discharge = 90 minutes This includes examination of the patient, discharge planning, medication reconciliation, and communication with other providers. Discharge Instructions Patient to be transferred to [facility] for neurosurgical evaluation Patient to remain in supine position during transfer for Follow-up with your primary care provider upon discharge Additional Copies To Mauricio Gomez D.O.; Idalia Hernandez, DO; Jennifer. John D.O.; Upendra. Hope M.D.
--- NOTE | 2017-02-14 11:57 | Pain Management Progress Note ---
Pain Management Progress Note Date of Service Feb 14, 2017. Subjective Mr. Hamilton is status post explantation of an intrathecal pump and catheter delivery system due to infection, acute confusion, and respiratory failure. Pain is fairly well controlled with Dilaudid infusion. He denies any headache. He did have a thoracentesis yesterday and had brown fluid drained. Patient has an appetite and has not vomited this morning. Patient denies any constitutional complaints. Case discussed with Dr. Hope Objective Vital Signs: Last Vital Signs Documentation Date Time Temp Pulse Resp B/P (MAP) Pulse Ox O2 Delivery O2 Flow Rate FiO2 02/14/17 08:00 36.8 96 21 182/94 (123) 95 Nasal Cannula 3.0 02/11/17 02:11 50 Physical Exam: GENERAL: Mr. Hamilton is a 51 year old white male that appears older than his stated age. Speech and cognition is intact. Mood and affect is appropriate. He does not appear in any acute distress. SKIN: The RLQ abdominal incision has a wound vac in place without any erythema or warmth. Thoracolumbar incision is draining clear and dressing is soaked. NEURO: Cranial nerves grossly intact. He is AAO x 3. Laboratory Laboratory Findings 02/14/17 05:40 Assessment 1. Status post explantation of intrathecal catheter and pump due to CSF leak and infection. 2. Status post-respiratory failure. Recommendations 1. Dr. Hope has spoken with Dr. High at [facility] and discussed the case. Patient will likely need a dural patch and will be transferred to [facility] ICU bed. Arrangements are being made.
--- NOTE | 2017-02-14 13:21 | Critical Care Progress Note ---
Critical Care Progress Note Date of Service Feb 14, 2017. Critical Care Progress Note Attempted to contact patient's adds listed cell phone, no answer, left message to call if update desired.
--- NOTE | 2017-02-14 13:57 | Progress Note ---
Internal Med Progress Note Date of Service: Feb 14, 2017. Provider Documentation: SUBJECTIVE: The patient was seen and Examined S/P Drainage of fluid collection from the back S/P Extubation Generally weak Remains reasonably stable Minimal CSF leakage from the back lesion Reasonably stable Still complains of pain at the back -drainage is decreased Clinically a lot better Arrangements have been made to transfer him to [facility] for a dural patch OBJECTIVE: Vital Signs-as noted below Exam: General-Minimal distress at rest Eyes-normal ENT-normal Neck-Supple Lungs-decreased breath sound bilaterally With widespread crackles Heart-Regular,no murmur appreciated Abdomen-Benign,no masses,bowel sound present Extremities-Trace edema bilaterally Clear drainage from the back wound Neuro-AAOx3 Generally Weak NO focal neuro deficit Lab data as noted below. 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 and severe diabetic gastroparesis s/p gastric pacemaker; chronic pain syndrome on long-term opioids s/p intrathecal pump, HTN, H/O of seizure disorder - recently admitted for infected and leaking intrathecal pump with surgical repair and on long-term antibiotics - presents secondary to worsening back pain and worsening nausea/vomiting Persistent Intrathecal Pump Leakage and Infection- Pain Pump Removed Left Paraspinal Abscess Was discharged on 01/31 - during that admission, he had an I&D and stopped CSF leakage He had a PICC line put in and was discharged on 6 weeks of Vancomycin Abdominal/Pelvis CT suggests a persistent abscess around 4.2cm Patient is now on Cefepime, Clindamycin, and Vancomycin Appreciate ID input Appreciate Pain management and Spine Surgery input S/P I&D 02/05/17::No CSF leakage ,Old collection drained S/P Removal of Intrathecal Pain Pump and catheter; Application of Wound Vac on 02/07/17 CSF fluid showed increased WCC ~2000,Gm stain is negative Consulted Wound Care-appreciate input Continue Current antibiotic Leakage from the wound at the back -decreased He will be transferred to [facility] placement of a Dural Patch to seal the leakage Acute Respiratory Failure :S/P Extubation Acute SOB this morning:Differential includes-Fluid overload,CHF,Pneumonia- Aspiration ,Narcotic induced ,exacerbation associated with lung cancer or even ARDS With change in mental status and decreased saturation of 70s Received 1 dose of Narcan,60mg IV Lasix ,CXR and blood tests and started on NRB ABG ordered and the patient is transferred to ICU for continued care Has been on IV Vanco,Cefepime and Clindamycin ID,Ortho and Pain therapist are on board Generally weak and lethargic Clinically a little better today Advised complete bedrest Remains stable without any SOB at rest Anemia Likely secondary to Ongoing infection Will transfuse 2 units of PRBC S/p 2 units of PRBC Hb 7.9 on 02/14/17 Possible Ongoing Infective process Remains afebrile and no Increase in WCC, Intrathecal Pain Pump is removed PICC line is removed New central line inserted ID is on board Continue current antibiotics-on IV Vanco now Remains afebrile and WCC is normal Continue antibiotics as advised by the ID -on Vancomycin Bilateral Lower Extremity Swelling Possibly related to low protein Added boost TID-Nutrition consulted US negative for any clot HTN Has been on BB and Amlodipine and Lisinopril Still on the upper side Increase BB to 50mg BID Possible Aspiration Pneumonia Patient has had issues with nausea/vomiting He presented with some shortness of breath issues CXR suggests right perihilar and medial right lung base opacities suggesting atelectasis or pneumonia Added Clindamycin for anaerobic coverage Ongoing antibiotic for other reason No acute issue Anasarca Likely from low protein Received one dose of IV Lasix Add boost glucose control Persistent Nausea/Vomiting He has a gastric pacemaker in, unfortunately, he still has persistent n/v Received one dose of Emend Continue Zofran PRN Chronic Pain on Long-Term Opioids Would appreciate pain management input Currently on PO hydromorphone 4mg q3hrs PRN Will try to avoid IV narcotics Asking for more pain medicine -appreciate Pain therapist input Removal of Intrathecal Pain Pump and catheter Appreciate pain therapy input Insulin Dependent DM2 Currently on Lantus 12 units BID Insulin sliding scale Monitor blood sugars - he presented with hypoglycemia; now slightly hyperglycemic, we will monitor Has been started on IN infusion Hx. of Seizure Disorder continue Keppra DVT ppx Will start Lovenox 40 mg Daily starting at 6 PM this Evening FULL CODE Likely to transfer to [facility] today Vital Signs: Date Time Temp Pulse Resp B/P (MAP) Pulse Ox O2 Delivery O2 Flow Rate FiO2 02/14/17 12:00 Nasal Cannula 3.0 02/14/17 12:00 37.7 91 18 171/103 (125) 97 Nasal Cannula 3.0 02/14/17 10:44 36.8 93 12 95 Nasal Cannula 02/14/17 10:00 93 12 143/87 (105) 95 Nasal Cannula 3.0 02/14/17 08:00 36.8 96 21 182/94 (123) 95 Nasal Cannula 3.0 02/14/17 08:00 Nasal Cannula 3.0 02/14/17 08:00 Nasal Cannula 02/14/17 07:56 95 14 94 Nasal Cannula 3.0 02/14/17 06:00 78 14 160/86 (110) 98 Nasal Cannula 3.0 02/14/17 04:00 Nasal Cannula 3.0 02/14/17 04:00 36.6 76 13 149/79 (102) 95 Nasal Cannula 3.0 02/14/17 02:00 83 22 152/83 (106) 98 Nasal Cannula 3.0 02/14/17 01:51 82 12 96 Nasal Cannula 3.0 02/14/17 00:16 37.2 84 15 156/101 (119) 94 Nasal Cannula 3.0 02/14/17 00:00 Nasal Cannula 3.0 02/13/17 22:19 Nasal Cannula 3.0 02/13/17 22:19 88 15 159/83 (108) 95 Nasal Cannula 3.0 02/13/17 20:35 87 12 97 Nasal Cannula 3.5 02/13/17 20:08 37.0 86 13 157/105 (122) 95 Nasal Cannula 3.0 02/13/17 20:00 95 Nasal Cannula 3.0 02/13/17 19:00 88 13 165/94 (117) 97 02/13/17 18:00 88 20 168/100 (122) 94 02/13/17 17:01 91 20 171/90 (117) 97 02/13/17 17:00 87 18 96 02/13/17 16:00 79 0 119/64 (82) 95 02/13/17 16:00 96 Nasal Cannula 3.0 02/13/17 14:28 81 12 98 Nasal Cannula 3.5 02/13/17 14:00 83 14 138/74 (95) 95 Nasal Cannula 3.0 Lab Results: Results Past 24 Hours Test 02/13/17 16:49 02/13/17 17:06 02/13/17 17:37 02/13/17 20:04 Range/Units Bedside Glucose 43 64 242 92 70-99 mg/dl Test 02/14/17 05:40 02/14/17 06:47 02/14/17 11:19 Range/Units White Blood Count 3.86 4.8-10.8 K/uL Red Blood Count 2.88 4.7-6.1 M/uL Hemoglobin 7.9 14.0-18.0 g/dL Hematocrit 24.7 42-52 % Mean Corpuscular Volume 85.8 80-100 fL Mean Corpuscular Hemoglobin 27.4 25-34 pg Mean Corpuscular Hemoglobin Concent 32.0 32-36 g/dl RDW Standard Deviation 43.0 36.4-46.3 fL RDW Coefficient of Variation 13.6 11.5-14.5 % Platelet Count 200 130-400 K/uL Mean Platelet Volume 9.3 7.4-10.4 fL Activated Partial Thromboplast Time 30.7 21.0-31.0 SECONDS Partial Thromboplastin Ratio 1.2 Sodium Level 141 136-145 mmol/L Potassium Level 3.9 3.5-5.1 mmol/L Chloride Level 105 98-107 mmol/L Carbon Dioxide Level 30 21-32 mmol/L Anion Gap 6.0 3-11 mmol/L Blood Urea Nitrogen 30 7-18 mg/dl Creatinine 1.70 0.60-1.40 mg/dl Est Creatinine Clear Calc Drug Dose 57.8 ml/min Estimated GFR () 52.9 Estimated GFR (Non- 45.7 BUN/Creatinine Ratio 17.4 10-20 Random Glucose 115 70-99 mg/dl Calcium Level 8.3 8.5-10.1 mg/dl Phosphorus Level 3.6 2.5-4.9 mg/dl Magnesium Level 1.7 1.8-2.4 mg/dl Random Vancomycin Level 18.4 mcg/ml Bedside Glucose 120 171 70-99 mg/dl
--- NOTE | 2017-02-14 17:24 | Discharge Summary ---
Discharge Summary Date of Service Feb 14, 2017. Discharge Summary Admission Date: Feb 02, 2017 at 03:24 Discharge Date: Feb 14, 2017 Discharge Disposition: Acute care facility Principal Diagnosis: CSF Leak Secondary Diagnoses/Problems: Please see H&P and Hospital Progress note Procedures: Removal of Intrathecal Pain Pump and catheter; Application of Wound Vac Central venous catheter placed right internal jugular, 02/10/2017 discontinued 02/14/2017 Intubation 02/07/2017 extubation 02/10/2017 Bronchoscopy 02/10/2017 Left thoracentesis 02/13/2017 Consultations: Infectious Disease Pain Management Wound Care Critical Care Medicine Orthopedic Surgery Admission Information HPI (per Admitting provider): Patient was initially admitted to [facility] on 02/01/2017 with a working diagnosis of pneumonia and increasing back pain. Of note the patient had previously been admitted for pain control with revision of an intrathecal pain pump with a hospitalization dated 01/14/2017 2 01/31/2017. During the previous hospitalization there was revision of intrathecal pain pump for a presumptive CSF leak. Cultures from that admission include a surface culture obtained in the emergency department which grew MSSA. This culture was thought to represent surface contamination. A second culture was obtained during the operative procedure have grown MSSA. This was also thought to represent possible contamination as the space has been opened surgically several times. Per anesthesia report, there was no evidence of brandi abscess nor purulence seen in the operative bed. Infectious disease has been consult and have recommended a course of 6 weeks of IV vancomycin. During this admission the patient underwent an echocardiogram on 02/03/2017 findings: * The study was technically adequate. Left Ventricle * The left ventricle is normal in size. * There is moderate concentric left ventricular hypertrophy. * Left ventricular systolic function is normal. * Ejection Fraction = 60-65%. * The left ventricular wall motion is normal. Right Ventricle * The right ventricle is normal size. * The right ventricular systolic function is normal. Atria * The left atrial size is normal. * Right atrial size is normal. * There is no evidence of atrial septal defect, but resolution does not allow assessment for a patent foramen ovale. Mitral Valve * The mitral valve leaflets appear thickened, but open well. * There is no mitral valve stenosis. * There is moderate mitral regurgitation. Tricuspid Valve * The tricuspid valve anatomy is normal. * There is no tricuspid stenosis. * There is mild tricuspid regurgitation. * Right ventricular systolic pressure is elevated at 40-50mmHg. Aortic Valve * The aortic valve is trileaflet. * Aortic stenosis is absent. * There is no significant aortic regurgitation. Pulmonic Valve * The pulmonary valve is not well seen, but the Doppler examination is normal without significant regurgitation or stenosis. Patient underwent surgical exploration with spine surgery as well as anesthesia pain management on February 05. Antibiotic beads were placed at that time and no CSF leak was noted as well as no evidence of abscess or purulence. A tissue sample was sent for culture and Gram stain. This specimen has not had any bacterial growth. Over the next 48 hours the patient was also requiring enteral and parenteral narcotic medications. The patient became somnolent and developed a new oxygen requirement. There was concern for oversedation secondary to medication effect as well as considerations that the intrathecal catheter may have moved due to the severe retching associated with the patient' s severe chronic gastroparesis. Given the mental status changes and occult CSF infection was also entertained. A CSF specimen from the catheter was obtained and sent for culture and Gram stain on February 07. This specimen also does not have any growth to date nor organisms seen on Gram stain. CSF evaluation revealed 1800 WBCs in the setting of treatment with antibiotics. Due to this decision was made to proceed with explantation of the intrathecal catheter as well as pain pump. This was removed on 02/07/2017 as well as placement of a wound VAC. During this procedure culture was obtained of the deep abdominal pocket as well as the lumbar wound. These specimens have not demonstrated any growth to date nor were any organisms seen on Gram stain. Postoperatively the patient experienced respiratory insufficiency as well as continued lethargy requiring transfer to the critical care unit. Patient was noted to have a PICC line that is been inserted previously on 01/17/2017 for IV vancomycin administration. This PICC line was removed and a central venous catheter was placed. The patient was also intubated for airway protection. The patient had a drop in his hemoglobin and hematocrit and received a blood transfusion of 2 units on 02/08/2017. The patient also had a mild IVAN during this period with his creatinine increasing from baseline of approximately 1 to that of 1.8, 1.9 and has since improved to 1.7. The patient did experience a fever on 02/10/2017 which prompted a bronchoscopy for possible pneumonia. Per bronchoscopy report the lungs did not show evidence of brandi purulence. The patient was able to be extubated later that day. Over the next 72 hours the patient's mental status continued to slowly improve, the acute encephalopathy was thought to be secondary to parenteral narcotic administration in the setting of an IVAN allowing accumulation of metabolites. The patient did undergo an electroencephalogram on February 13 to exclude epileptic activity, this revealed: mildly diffuse abnormality and a high nonspecific fashion which likely correlates with the presence of a metabolic encephalopathy but does not demonstrate lateralizing features more importantly does not demonstrate any potential epileptogenic activity. Given the patient's persistent oxygen requirement, and moderate risk for PE given his cancer history he underwent a contrasted CT scan of the chest on 02/12/2017. Findings: 1. No evidence of pulmonary embolus. 2. Significant interval decrease in left lung infiltrates compatible with improving pneumonia. 3. Interval increase in right lung infiltrates. Given the presence of pleural effusions and interlobular septal thickening, a prominent component of pulmonary edema is likely. However, it is difficult to exclude spread of infection or, less likely, aspiration. 4. New right and increase in left pleural effusions. 5. Reactive mediastinal and hilar lymph nodes. 6. Anasarca On 02/13/2017 the patient underwent a left thoracentesis for further evaluation of the pleural effusion. It is noted that the patient's prior diagnosis of non- small cell lung cancer occurred in the left chest. Pleural protein the serum protein ratio was 0.35 however LDH ratio is essentially 1, there were 220 white blood cells with a mononuclear predominance of 86%. Pleural pH was 7.34, glucose 131. This appears to be an exudative pleural effusion, cytology is still pending at the time of this dictation. There were no organisms seen on Gram stain and cultures remain negative to date. Currently the patient is being treated with vancomycin for 6 weeks from explantation of hardware (February 07) with goal trough 15-20. The patient had finished a ten-day course of cefepime from February 01 until February 11. The patient has also finished a 10 day course of clindamycin from February 02 until February 11. The patient's chronic narcotic requirements are being met with 0.7 mg intravenous hydromorphone, and transdermal clonidine patch 0.3 mg per 24 hours. The patch was placed February 11. The patient's baseline hypertension is typically controlled with 25 mg metoprolol twice a day, we have increased his beta christi to 50 mg twice a day. He additionally takes 81 mg of aspirin and 10 mg of Norvasc. We have continued to hold his 10 mg of lisinopril as his creatinine continues to improve. Patient had been previously treated with Keppra for diabetic neuropathy, this was discontinued in the last 48 hours given his mental status changes. Patient was also started on Megace 5 mg twice a day to stimulate appetite given the anasarca and inadequate caloric intake during the hospitalizations. He is also receiving 37.5 mg Effexor extended release capsules. The patient's blood sugars are currently controlled with a baseline long-acting insulin, 20 units of Lantus daily as well as additional regular insulin for carbohydrate coverage. Medicine ::H&P DATE OF ADMISSION: 02/02/2017 PRIMARY CARE PHYSICIAN: Dr. Condon. CHIEF COMPLAINT: Increased back pain, shortness of breath. Medical history obtained from patient, patient's , and records. Limited history from patient secondary to lethargy. Medical history significant for NSCLC stage III, status post surgery, incomplete chemotherapy secondary to intolerance, gastroparesis, chronic pain on pain pump, hypertension, DM2 insulin requiring, past tobacco abuse, chronic anemia (baseline hemoglobin 8), seizure disorder as per records. History neurogenic bladder. Recent confinement from 01/14/2017-01/31/2017 for intrathecal pump infection leakage. CS grew MSSA. Patient discharged 2 days ago on IV Vancomycin course for 6 weeks. Px was about to get in a vehicle to go home 2 days ago, he felt a pop in his back, increased drainage noted later on as per somewhat pasty and achy back pain noted at home. Not feeling well, Headache achy behind his left eye, some nausea, vomiting. Patient felt more short of breath, dry cough. No fever, some chills. Ppatient returned to the Emergency Room. Received vancomycin and cefepime at the ER. Purulent drainage from the back as per RN. MEDICAL HISTORY: As above. SURGERIES: Knee surgery, tonsillectomy, pain pump placement, lymphadenectomy. HOME MEDICATIONS: Include IV vancomycin, albuterol, aspirin, Tylenol, Norvasc, EpiPen, Folvite, gabapentin, Dilaudid, NovoLog, Lantus, Keppra, Flomax, Effexor. ALLERGIES: TO BEE STING, PENICILLIN. FAMILY HISTORY: Family history of diabetes, renal cell cancer. PERSONAL AND SOCIAL HISTORY: Past tobacco abuse. No chronic intake of alcohol. Disabled. REVIEW OF SYSTEMS: Could not be reliably obtained. PHYSICAL EXAMINATION: VITAL SIGNS: Blood pressure noted to be 190/100, later 170/80, pulse rate 101 later 84, RR 20, temperature 36.9, sats 93 on 4 liters. GENERAL: Noted to be lethargic, obese. SKIN: Pallor, dry. HEENT: Alopecia, pale palpebral conjunctivae, dry mucosa. NECK short, midline trachea , no tenderness. CHEST : Decreased effort, no tenderness CV : RRR, palpable LE pulses ABDOMEN: Some distension, NT. BACK: Dressing on the low back, lumbar sutures noted, scant yellow drainage. Some tenderness LOWER EXTREMITIES: No edema, no tenderness. NE Lethargic. Pupils equal and sluggishly reactive to light. Gait and stance not assessed. No nuchal rigidity. LABORATORY DATA: Hemoglobin was noted to be 8.6, hematocrit 25.7, white blood cell count 5.7, platelets noted to be 234. Sodium noted to be 140, K4.1 CO2 30, BUN 20, creatinine 1.3, glucose 214. BNP was 4000. Hemoglobin A1C 7.2 from 01/2017. Chest x-ray showed small left pleural effusion, patchy right perihilar medial lung base pneumonia. CT abdomen and pelvis initial read showed 2.7 fluid collection overlying the left paraspinal musculature slightly increased in size. Bilateral pleural effusions. ABG, pH of 7.41, pCO2 of 51, pO2 71, O2 sats [address] head initial read no acute pathology. EKG as per my interpretation : normal sinus rhythm. No ischemia. ASSESSMENT: 1. Acute hypoxemic respiratory failure Multifactorial : healthcare-associated pneumonia/likely aspiration el pleural effusion, congestion, elevated BNP ? CHF, hx chemotx 2. Worsening back pain, fluid drainage, CSF infection history of intrathecal pump placement for chronic pain MSSA on CS, ongoing IV Vancomycin course 3. Sepsis secondary to 1 and 2 4. NSCLC stage III status post surgery, chemotherapy intolerance 5. HTN, slightly elevated 6. DM2, insulin requiring, well controlled as of recent hemoglobin A1c 7. hx Seizures, stable on Keppra 8. Chronic anemia, hemoglobin at baseline 9. Past tobacco abuse PLAN: PCU supplemental O2, nebs Lasix one dose TTE RE bilateral pleural effusions, possible CHF CS, Vancomycin, Cefepime and Clindamycin for HCAP Consult Pain Management RE follow-up evaluation for lumbar fluid reaccumulation (Patient known to Dr. Hope.) continue basal insulin, ISS BG goal 140-180 DVT prophylaxis SCDs for now RE possible procedure Full code Patient's requesting for updates from providers. Mrs. Oly Hamilton at [phone]. Physical Exam (per Admitting): General Appearance: No acute distre no acute distressss Eyes: PERRLA, no discharge, EOMI, 2 mm in size ENT: normal ear exam, normal nasal exam, normal mouth exam Neck: normal range of motion, no tenderness, trachea midline Respiratory: CTA anteriorly. Cardiovasular: regular rate/rhythm, normal S1S2, normal peripheral pulses Abdomen: non tender, no rebound, no masses, right lower quadrant incision with VAC dressing application. Back: Lumbar dressing in place Lower Extremities: Mild generalized edema, no deformity, moving extremities to command, good power. Neuro: Alert and oriented 3 conversant Psych: Normal affect Hospital Course This is a 51 year old male with a PMH of NSCLC stage 3 with incomplete chemotherapy secondary to nausea/vomiting and intolerance.Insulin dependent DM2 with complications including neuropathy and severe diabetic gastroparesis s/p gastric pacemaker; chronic pain syndrome on long-term opioids s/p intrathecal pump, HTN, H/O of seizure disorder - recently admitted for infected and leaking intrathecal pump with surgical repair and on long-term antibiotics - presents secondary to worsening back pain and worsening nausea/vomiting Persistent Intrathecal Pump Leakage and Infection- Pain Pump Removed Left Paraspinal Abscess Was discharged on 01/31 - during that admission, he had an I&D and stopped CSF leakage He had a PICC line put in and was discharged on 6 weeks of Vancomycin Abdominal/Pelvis CT suggests a persistent abscess around 4.2cm Patient is now on Cefepime, Clindamycin, and Vancomycin Appreciate ID input Appreciate Pain management and Spine Surgery input S/P I&D 02/05/17::No CSF leakage ,Old collection drained S/P Removal of Intrathecal Pain Pump and catheter; Application of Wound Vac on 02/07/17 CSF fluid showed increased WCC ~2000,Gm stain is negative Consulted Wound Care-appreciate input Continue Current antibiotic Leakage from the wound at the back -decreased He will be transferred to [facility] placement of a Dural Patch to seal the leakage Acute Respiratory Failure :S/P Extubation Acute SOB this morning:Differential includes-Fluid overload,CHF,Pneumonia- Aspiration ,Narcotic induced ,exacerbation associated with lung cancer or even ARDS With change in mental status and decreased saturation of 70s Received 1 dose of Narcan,60mg IV Lasix ,CXR and blood tests and started on NRB ABG ordered and the patient is transferred to ICU for continued care Has been on IV Vanco,Cefepime and Clindamycin ID,Ortho and Pain therapist are on board Generally weak and lethargic Clinically a little better today Advised complete bedrest Remains stable without any SOB at rest Anemia Likely secondary to Ongoing infection Will transfuse 2 units of PRBC S/p 2 units of PRBC Hb 7.9 on 02/14/17 Possible Ongoing Infective process Remains afebrile and no Increase in WCC, Intrathecal Pain Pump is removed PICC line is removed New central line inserted ID is on board Continue current antibiotics-on IV Vanco now Remains afebrile and WCC is normal Continue antibiotics as advised by the ID -on Vancomycin Bilateral Lower Extremity Swelling Possibly related to low protein Added boost TID-Nutrition consulted US negative for any clot HTN Has been on BB and Amlodipine and Lisinopril Still on the upper side Increase BB to 50mg BID Possible Aspiration Pneumonia Patient has had issues with nausea/vomiting He presented with some shortness of breath issues CXR suggests right perihilar and medial right lung base opacities suggesting atelectasis or pneumonia Added Clindamycin for anaerobic coverage Ongoing antibiotic for other reason No acute issue Anasarca Likely from low protein Received one dose of IV Lasix Add boost glucose control Persistent Nausea/Vomiting He has a gastric pacemaker in, unfortunately, he still has persistent n/v Received one dose of Emend Continue Zofran PRN Chronic Pain on Long-Term Opioids Would appreciate pain management input Currently on PO hydromorphone 4mg q3hrs PRN Will try to avoid IV narcotics Asking for more pain medicine -appreciate Pain therapist input Removal of Intrathecal Pain Pump and catheter Appreciate pain therapy input Insulin Dependent DM2 Currently on Lantus 12 units BID Insulin sliding scale Monitor blood sugars - he presented with hypoglycemia; now slightly hyperglycemic, we will monitor Has been started on IN infusion Hx. of Seizure Disorder continue Keppra DVT ppx Will start Lovenox 40 mg Daily starting at 6 PM this Evening FULL CODE Likely to transfer to [facility] today Total time spent on discharge = 35 minutes This includes examination of the patient, discharge planning, medication reconciliation, and communication with other providers. Discharge Instructions Date of Service Feb 14, 2017. Admission Reason for Admission: Respiratory Failure, Acute Discharge Discharge Diagnosis / Problem: CSF leak Discharge Goals Goal(s): Improve function, Therapeutic intervention Activity Recommendations Activity Level: Bedrest . Additional Information Patient informed of condition: Yes Advance Directives: No DNR: No Level of Care: Other (transfer to acute care facility) Communicable Disease: No Prognosis: Stable Current Hospital Diet Patient's current hospital diet: Diabetes Type 2 Diet Discharge Diet Recommended Diet: Diabetes Type 2 Diet Procedures Procedures Performed: Removal of Intrathecal Pain Pump and catheter; Application of Wound Vac Central venous catheter placed right internal jugular, 02/10/2017 discontinued 02/14/2017 Intubation 02/07/2017 extubation 02/10/2017 Bronchoscopy 02/10/2017 Left thoracentesis 02/13/2017 Pending Studies Studies pending at discharge: yes List of pending studies: Pleural fluid cytology Physician Orders On Transfer Special Precautions: Patient to remain in supine position IV Therapy: PICC line for vancomycin administration Dilaudid 0.7 mg per hour Vital Signs: Every 15 minutes Weigh: Daily weights Laboratory Results Hemoglobin A1c Test 01/19/17 22:15 Range/Units Estimated Average Glucose 160 mg/dl Hemoglobin A1c 7.2 H 4.5-5.6 % Medical Emergencies . Who to Call and When: Medical Emergencies: If at any time you feel your situation is an emergency, please call 911 immediately. . Non-Emergent Contact Non-Emergency issues call your: Primary Care Provider Call Non-Emergent contact if: you have a fever . Past History Medical & Surgical History: (1) Pneumonia (2) Infection of intrathecal pump (3) Respiratory failure, acute (4) Intractable nausea and vomiting (5) Diabetes mellitus, type II (6) Gastroparesis (7) Diabetic polyneuropathy . "Provider Documentation" section prepared by Jeff Sol. . Hosiery Repairer Recommendations Hosiery Repairer Recommendations: Infectious disease: 6 weeks of antibiotics from pump removal (02/07/2017) trough to be maintained 15-20 Core Measure Problem Core Measures: None [place] Drug Monitoring Program Search Results: no issues identified Additional Copies To Bran Burgess M.D.
[2017-02-14] MEDS ORDERED: METOPROLOL TARTRATE 50 MG TAB PO SCH (21:00)
== END 2017-02-14 20:00 | disposition short-term general hospital (02) | DRG 28 ==
LOC: C.EDB 20:43 → C.2T 02-02 03:24 → ENRESERV 02-02 03:32 → C.MSICU 02-07 09:22
PROVIDERS: ADMIT Family Medicine; ATTEND Internal Medicine
PROC: 0J970ZZ Drainage of Back Subcutaneous Tissue and Fascia, Open Approach (ICD-10-PCS; 2017-02-05)
PROC: 3E0102A Introduction of Anti-Infective Envelope into Subcutaneous Tissue, Open Approach (ICD-10-PCS; 2017-02-05)
PROC: 0JPT0VZ Removal of Infusion Pump from Trunk Subcutaneous Tissue and Fascia, Open Approach (ICD-10-PCS; principal; 2017-02-07 12:30)
PROC: 00PU0YZ Removal of Other Device from Spinal Canal, Open Approach (ICD-10-PCS; principal; 2017-02-07 12:30)
PROC: 0BH18EZ Insertion of Endotracheal Airway into Trachea, Via Natural or Artificial Opening Endoscopic (ICD-10-PCS; 2017-02-08)
PROC: 5A1945Z Respiratory Ventilation, 24-96 Consecutive Hours (ICD-10-PCS; 2017-02-08)
PROC: 02HV33Z Insertion of Infusion Device into Superior Vena Cava, Percutaneous Approach (ICD-10-PCS; 2017-02-10)
PROC: 0BJ08ZZ Inspection of Tracheobronchial Tree, Via Natural or Artificial Opening Endoscopic (ICD-10-PCS; 2017-02-10)
PROC: 0W9B3ZZ Drainage of Left Pleural Cavity, Percutaneous Approach (ICD-10-PCS; 2017-02-13)
PROC: 02HV33Z Insertion of Infusion Device into Superior Vena Cava, Percutaneous Approach (ICD-10-PCS; 2017-02-14)
DX: T85.738A Infection and inflammatory reaction due to other nervous system device, implant or graft, initial encounter (principal); A41.9 Sepsis, unspecified organism; J69.0 Pneumonitis due to inhalation of food and vomit; C34.92 Malignant neoplasm of unspecified part of left bronchus or lung; J96.01 Acute respiratory failure with hypoxia; G93.41 Metabolic encephalopathy; N17.9 Acute kidney failure, unspecified; G06.1 Intraspinal abscess and granuloma; F11.23 Opioid dependence with withdrawal; T85.635A Leakage of other nervous system device, implant or graft, initial encounter; E11.42 Type 2 diabetes mellitus with diabetic polyneuropathy; Z88.0 Allergy status to penicillin; Z96.89 Presence of other specified functional implants; B95.61 Methicillin susceptible Staphylococcus aureus infection as the cause of diseases classified elsewhere; I10 Essential (primary) hypertension; R56.9 Unspecified convulsions; D64.9 Anemia, unspecified; E11.43 Type 2 diabetes mellitus with diabetic autonomic (poly)neuropathy; Z90.2 Acquired absence of lung [part of]; Y92.019 Unspecified place in single-family (private) house as the place of occurrence of the external cause; R60.0 Localized edema; E86.0 Dehydration; E83.42 Hypomagnesemia; I95.1 Orthostatic hypotension; Y75.1 Therapeutic (nonsurgical) and rehabilitative neurological devices associated with adverse incidents; G89.4 Chronic pain syndrome; Z79.4 Long term (current) use of insulin

== ENCOUNTER 2017-04-25 16:02 | Inpatient (IN) | payer OTHER ==
[~2017-04-25] VITALS: Ht 172.7 cm; Wt 78.2 kg
[~2017-04-25 16:02] MED LIST changes: -AMLO-114 PO; +AMLO5TAB3 PO; +CEFA1INJ IV; +DRGTP100; +FERR1TAB13 PO; -FOLI1TAB7 PO; +FOLI1TAB8 PO; +HYZ/50125 PO; -LEVE750T PO; +LISI-725 PO; -METO-157 PO; -NRN/600 PO; +NRN600 PO; -PANT40TA PO; +PEGSOL13; +PRLSR20 PO; -SLWMEC PO; -VANC1INJ IV; -VENL1CAP92 PO; +VENL37.52 PO
[2017-04-25] MEDS ORDERED: SODIUM CHLORIDE 0.9% 1000ML 2,000 ML IV STA (16:20)
[2017-04-25] MEDS ORDERED: ONDANSETRON INJ 2 MG/ML 2 ML VIAL IV STA (16:20)
[2017-04-25] MEDS ORDERED: FAMOTIDINE 20MG/5ML IV PUSH IV STA (16:20)
--- NOTE | 2017-04-25 16:40 | EMERGENCY ROOM VISIT NOTE ---
History Report prepared by Nedra: Anastasia Joya Under the Supervision of: Dr. Rodrigo Kuhn M.D. 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 The patient was sent over from his doctor's office after his blood pressure was found to be low. He was in the hospital recently. He was discharged 2 weeks ago. His appointment today was for follow up. He has not been eating or drinking well since he was discharged home. He has been nauseous and vomiting. He has had black diarrhea every other day. He has pain during the bowel movements. He is lightheaded with sitting up and nearly passes out every time he stands. He has had to stand up slowly. He has had congestion. He denies any fever, chills, cough, or bloody stools. He has a history of diabetes. He has chronic pain as a result of the neuropathy from diabetes. He has a walker and normally has difficulty walking long distances due to his neuropathy. 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 Pt denies bloody stools. Review of Systems See HPI for pertinent positives and negatives. A total of ten systems were reviewed and were otherwise negative. Past Medical & Surgical Medical Problems: (1) Chronic pain (2) Diabetic autonomic neuropathy (3) Diabetic peripheral neuropathy (4) Gastroparesis (5) Hypertension (6) Infection of intrathecal pump (7) Lung cancer (8) Orthostatic hypotension (9) Pneumonia (10) Seizure disorder Surgical Problems: (1) H/O colonoscopy (2) H/O esophagogastroduodenoscopy (3) History of cholecystectomy (4) History of tonsillectomy and adenoidectomy (5) Hx of total knee arthroplasty (6) S/P lobectomy of lung Family History Cancer Diabetes mellitus Hypertension Social History Smoking Status: Former Smoker Alcohol Use: none Drug Use: none Marital Status: Housing Status: lives with family Occupation Status: disabled Current/Historical Medications Scheduled Amlodipine (Norvasc), 5 MG PO DAILY Cholecalciferol (Vitamin D3), 50,000 UNITS PO WK Docusate Sodium (Docusate Sodium), 200 MG PO DAILY Fentanyl (Fentanyl), 100 MCG TOP Q2D Ferrous Sulfate (Kp Ferrous Sulfate), 325 MG PO BID Gabapentin (Gabapentin), 300 MG PO TID Hydrochlorothiazide (Hydrochlorothiazide), 12.5 MG PO DAILY Insulin Glargine (Basaglar Kwikpen), 15 UNITS SQ HS Insulin Lispro (Human) (Humalog), 0 SQ UD Levetiracetam (Keppra), 750 MG PO BID Lisinopril (Lisinopril), 40 MG PO DAILY Metoprolol Tartrate (Lopressor) (Lopressor), 75 MG PO BID Mirtazapine (Mirtazapine), 15 MG PO HS Multiple Vitamin (Multivitamins), 1 CAP PO QAM Omeprazole (Prilosec), 20 MG PO DAILY Scheduled PRN Acetaminophen (Tylenol), 1,000 MG PO Q6H PRN for Pain Albuterol Hfa (Ventolin Hfa), 2 PUFFS INH Q6H PRN for Wheezing Epinephrine (Epipen), 0.3 MG IM UD PRN for ALLERGIC REACTION Ondansetron (Ondansetron HCl), 8 MG PO Q8 PRN for Nausea Oxycodone Hcl (Oxycodone Hcl), 10 TAB PO Q4H PRN for Pain Prochlorperazine Maleate (Compazine), 10 MG PO Q6H PRN for Nausea or Vomiting Allergies Coded Allergies: BEE STING (Verified Allergy, Mild, SWELLING AT SITE, SOB, 04/25/17) Penicillins (Unverified Allergy, Unknown, "SINCE "-Amoxicillin, 04/25) Metoclopramide (Verified Adverse Reaction, Unknown, hallucinations, ) Physical Exam Vital Signs Date Time Temp Pulse Resp B/P (MAP) Pulse Ox O2 Delivery O2 Flow Rate FiO2 04/25/17 18:41 94 16 174/112 97 Room Air 04/25/17 17:05 89 16 122/85 95 Room Air 04/25/17 16:17 106 04/25/17 16:05 36.4 85 16 91/62 98 Room Air Physical Exam GENERAL: Awake, alert, chronically ill appearing, uncomfortable appearing, cachectic appearing, in no distress HENT: Normocephalic, atraumatic. Dry cracked mucous membranes. EYES: Normal conjunctiva. Sclera non-icteric. NECK: Supple. No nuchal rigidity. FROM. No JVD. RESPIRATORY: Clear to auscultation. CARDIAC: Regular rate, normal rhythm. Extremities warm and well perfused. Pulses equal. ABDOMEN: Soft, non-distended. Diffuse tenderness to palpation. No peritoneal signs. No rebound or guarding. No masses. RECTAL: Small amount of mucous. No bloody or black stools. Guaiac negative. No rectal areas of fluctuance or induration, but rectal exam is very painful. MUSCULOSKELETAL: Diffuse back and chest pain to palpation. No joint edema. LOWER EXTREMITIES: Calves are equal size bilaterally and non-tender. No edema. No discoloration. NEURO: Normal sensorium. No sensory or motor deficits noted. SKIN: No rash or jaundice noted. Medical Decision & Procedures ER Provider Diagnostic Interpretation: Radiology results as stated below per my review and radiologist interpretation: CHEST ONE VIEW PORTABLE CLINICAL HISTORY: 51 years-old Male presenting with Evaluate Fever/Sepsis. TECHNIQUE: Portable upright AP view of the chest was obtained. COMPARISON: 02/14/2017. FINDINGS: Cardiomediastinal silhouette normal. Persistent opacification of the left apex with relative radiolucency of the left midlung. Left basilar opacity has decreased from prior. Blunting of the left costophrenic angle persists. No large pneumothorax. Degenerative changes of the acromioclavicular joints. 2 leads project over the epigastrium. IMPRESSION: 1. Decreased left basilar opacity with small left pleural effusion. 2. Relative radiolucency of the left midlung and opacity of the left apex, findings which appear to be chronic in nature. This may relate to the presence of loculated apical fluid. Electronically signed by: Ronnell Renee M.D. 04/25/2017 5:03 PM Dictated Date/Time: 04/25/2017 5:01 PM (CHEST) THORAX WITHOUT CLINICAL HISTORY: 51 years-old Male presenting with cp, sob, tachycardic. TECHNIQUE: Multidetector CT imaging of the chest was performed without the use of intravenous contrast. IV contrast: None. A dose lowering technique was used consistent with the principles of ALARA (as low as reasonably achievable). COMPARISON: 02/12/2017. CT DOSE (mGy.cm): The estimated cumulative dose is 650.88 inclusive of the abdomen and pelvis. FINDINGS: Animal Pathologist topogram: Implanted device projects over the epigastrium. Cholecystectomy clips. On soft tissue windows, few subcentimeter nodules noted in the thyroid. No axillary, supraclavicular, or mediastinal lymphadenopathy. Evaluation of the laura limited without intravenous contrast. Normal aorta. Normal heart size. Mild coronary artery calcification. Trace left pleural effusion. This is significantly decreased from prior. No right pleural effusion, resolved from prior. An implanted lead courses along the epigastrium and anterior left peritoneum. Cholecystectomy clips noted. On lung windows, there has been complete resolution of previously noted right upper lung opacities. Furthermore, significantly decreased left lower lobe dependent atelectasis. Minimal subpleural reticular opacities in the left lower lobe may be postinfectious/postinflammatory. No interlobular septal thickening. No consolidation in the right lower lobe. Postsurgical changes of left upper lobectomy as on prior exam. Airways otherwise patent. On bone windows, minimal degenerative changes of the spine. IMPRESSION: 1. Complete resolution of previously noted right upper lobe pneumonia. 2. Resolution of right pleural effusion and right basilar atelectasis. 3. Trace left pleural effusion and trace left basilar atelectasis. 4. No residual pulmonary edema. 5. Postsurgical changes of left upper lobectomy. Electronically signed by: Ronnell Renee M.D. 04/25/2017 6:35 PM Dictated Date/Time: 04/25/2017 6:29 PM [address]EN AND PELVIS CT WITHOUT CONTRAST CT DOSE: 650.88 mGy.cm HISTORY: Nausea. Vomiting. Generalized abdominal pain, hypotensive h/o psoas abscess TECHNIQUE: Multiaxial CT images of the abdomen and pelvis were performed without contrast. A dose lowering technique was utilized adhering to the principles of ALARA. COMPARISON STUDY: Abdomen and pelvis CT 02/03/2017. FINDINGS: Trace left pleural effusion which has improved. Gastric stimulator is noted. No pneumoperitoneum. No pneumatosis. No suspicious lytic or blastic osseous lesions. Cholecystectomy. The unenhanced liver, spleen, adrenal glands, and pancreas are unremarkable. No retroperitoneal lymphadenopathy. There is a punctate stone within the lower pole the left kidney. No ureteral stones. No hydronephrosis. The bladder is mildly distended. Suboptimal evaluation for bowel pathology due to the lack of intravenous and oral contrast. However, there is no definite bowel wall thickening or obstruction. Focal scarring within the right lower quadrant subcutaneous fat. Patient is status post removal of a right lower quadrant lumbar stimulator. No abscess identified within the lumbar soft tissues. The appendix is identified and measure between 6 and 9 mm. However, there is no periappendiceal fat stranding at this time. This is similar in size compared the prior study. Therefore, no evidence for acute appendicitis. IMPRESSION: 1. No bowel wall thickening or obstruction. 2. Interval removal of the spinal stimulator device/leads. No loculated fluid collections remaining within the lumbar region to suggest an abscess. 3. Trace left pleural effusion which has improved. 4. Left-sided nephrolithiasis. No hydronephrosis. 5. Cholecystectomy. 6. Stable appendix. Therefore, no evidence for acute appendicitis. 7. Mildly distended bladder. Electronically signed by: Danilo Langley M.D. 04/25/2017 6:41 PM Dictated Date/Time: 04/25/2017 6:32 PM Laboratory Results 04/25/17 16:50 Red Blood Count 3.52, Mean Corpuscular Volume 81.0, Mean Corpuscular Hemoglobin 30.1, Mean Corpuscular Hemoglobin Concent 37.2, Mean Platelet Volume 10.2, Neutrophils (%) (Auto) 73.2, Lymphocytes (%) (Auto) 16.2, Monocytes (%) (Auto) 8.2, Eosinophils (%) (Auto) 1.3, Basophils (%) (Auto) 0.4, Neutrophils # (Auto) 3.94, Lymphocytes # (Auto) 0.87, Monocytes # (Auto) 0.44, Eosinophils # (Auto) 0.07, Basophils # (Auto) 0.02 04/25/17 16:50 Test 04/25/17 16:50 04/25/17 17:06 04/25/17 18:14 White Blood Count 5.38 K/uL (4.8-10.8) Red Blood Count 3.52 M/uL (4.7-6.1) Hemoglobin 10.6 g/dL (14.0-18.0) Hematocrit 28.5 % (42-52) Mean Corpuscular Volume 81.0 fL (80-100) Mean Corpuscular Hemoglobin 30.1 pg (25-34) Mean Corpuscular Hemoglobin Concent 37.2 g/dl (32-36) Platelet Count 211 K/uL (130-400) Mean Platelet Volume 10.2 fL (7.4-10.4) Neutrophils (%) (Auto) 73.2 % Lymphocytes (%) (Auto) 16.2 % Monocytes (%) (Auto) 8.2 % Eosinophils (%) (Auto) 1.3 % Basophils (%) (Auto) 0.4 % Neutrophils # (Auto) 3.94 K/uL (1.4-6.5) Lymphocytes # (Auto) 0.87 K/uL (1.2-3.4) Monocytes # (Auto) 0.44 K/uL (0.11-0.59) Eosinophils # (Auto) 0.07 K/uL (0-0.5) Basophils # (Auto) 0.02 K/uL (0-0.2) RDW Standard Deviation 43.1 fL (36.4-46.3) RDW Coefficient of Variation 14.6 % (11.5-14.5) Immature Granulocyte % (Auto) 0.7 % Immature Granulocyte # (Auto) 0.04 K/uL (0.00-0.02) Erythrocyte Sedimentation Rate 25 mm/hr (0-14) Prothrombin Time 10.9 SECONDS (9.0-12.0) Prothromb Time International Ratio 1.0 (0.9-1.1) Venous Blood pH 7.37 (7.36-7.41) Venous Blood Partial Pressure CO2 56 mmHg (38.0-50.0) Venous Blood Partial Pressure O2 28 mmHg Venous Blood HCO3 31 mmol/L Venous Blood Oxygen Saturation < 60.0 % Venous Blood Base Excess 5.0 mEq/L Anion Gap 6.0 mmol/L (3-11) Est Creatinine Clear Calc Drug Dose 42.5 ml/min Estimated GFR () 43.8 Estimated GFR (Non- 37.8 BUN/Creatinine Ratio 14.3 (10-20) Lactic Acid Level 1.5 mmol/L (0.4-2.0) Calcium Level 8.6 mg/dl (8.5-10.1) Total Bilirubin 0.7 mg/dl (0.2-1) Direct Bilirubin 0.2 mg/dl (0-0.2) Aspartate Amino Transf (AST/SGOT) 11 U/L (15-37) Alanine Aminotransferase (ALT/SGPT) 20 U/L (12-78) Alkaline Phosphatase 100 U/L (45-117) Troponin I < 0.015 ng/ml (0-0.045) C-Reactive Protein < 0.29 mg/dl (0-0.29) Total Protein 7.4 gm/dl (6.4-8.2) Albumin 3.2 gm/dl (3.4-5.0) Lipase 33 U/L (73-393) Beta-Hydroxybutyric Acid 5.24 mg/dL (0.2-2.81) Influenza Type A Antigen Neg for Influ A (NEG) Influenza Type B Antigen Neg for Influ B (NEG) Osmolality 302 mOsm/kg (280-300) Laboratory results reviewed by me Medications Administered Medications (Trade) Dose Ordered Sig/Cal Route Start Time Stop Time Status Last Admin Dose Admin Sodium Chloride 2,000 ml @ 999 mls/hr Q2H1M STAT IV 04/25/17 16:20 04/25/17 18:20 DC 04/25/17 17:04 999 MLS/HR Ondansetron HCl (Zofran Inj) 4 mg NOW STAT IV 04/25/17 16:20 04/25/17 16:27 DC 04/25/17 17:05 4 MG Famotidine (Pepcid 20mg Iv Push) 20 mg NOW STAT IV 04/25/17 16:20 04/25/17 16:27 DC 04/25/17 17:05 20 MG Sodium Chloride 1,000 ml @ 250 mls/hr Q4H STAT IV 04/25/17 18:14 04/25/17 22:13 DC 04/25/17 19:20 250 MLS/HR Metoclopramide HCl (Reglan Inj) 10 mg NOW STAT IV 04/25/17 18:56 04/25/17 18:59 DC 04/25/17 19:21 10 MG ECG Indication: syncope (near) Rate (beats per minute): 98 Rhythm: normal sinus Findings: no acute ischemic change, other (normal axis) ED Course 1609: The patient was evaluated in room A3. A complete history and physical exam was performed. 1759: Upon reexamination, the patient was stable. I discussed the test results and treatment plan with him. The patient will be evaluated for further management. 1858: [facility] - He will evaluate the patient for further treatment. Medical Decision I reviewed the patient's past medical history, medications, and the nursing notes as described above. Differential diagnosis: pneumonia, bronchitis, PE, sepsis, intraabdominal abscess, UTI, dehydration, electrolyte abnormality, gastroparesis, colitis, diverticulitis. The patient is a 31-year-old gentleman with a complicated past medical history of chronic neuropathy and pain with a history of intrathecal pump infection ( since ) and associated psoas abscess in February 2017 who presents to the emergency department with persistent nausea vomiting fatigue and lightheadedness hypotensive to the 90s at clinic and sent to the ED for evaluation per hpi. On arrival the patient is chronically ill-appearing, fatigued but in no acute distress afebrile, heart rate low 100s systolic blood pressure in the 90s but otherwise stable ambulating without difficulty and mentating well. Patient is cachectic appearing with dry cracked mucous membranes he has diffuse back chest and abdominal pain to palpation which he reports is consistent with his chronic neuropathy. Rectal exam demonstrates mucus but no bloody or black stools. No evidence of fluctuance or induration on rectal exam however extremely painful. Workup notable for hyponatremia 129 as well as elevated glucose in the 400s with BHB of 5. No acidosis. WBC wnl. Patient given IV fluids with improvement in BP and glucose with fluids alone to the 300s suggesting likely component of severe dehydration. CT of the chest abdomen and pelvis negative for acute findings and overall improved albeit limited secondary no contrast given the patient's creatinine of 1.9. [facility] was [facility], who will admit the patient for further management. Medication Reconcilliation Current Medication List: was personally reviewed by me Blood Pressure Screening Patient's blood pressure: Elevated blood pressure Referred to hospitalist Consults Time Called: 1857 Consulting Physician: Dr. [facility] Returned Call: 1858 I discussed the patient with him - He will evaluate the patient for further treatment. Impression Primary Impression: Hyponatremia Additional Impressions: Hyperglycemia Dehydration Scribe Attestation The scribe's documentation has been prepared under my direction and personally reviewed by me in its entirety. I confirm that the note above accurately reflects all work, treatment, procedures, and medical decision making performed by me. Departure Information Dispostion Being Evaluated By Hospitalist Referrals Bran Burgess M.D. (PCP) Patient Instructions My [facility] Problem Qualifiers
[2017-04-25] MEDS ORDERED: LEVE750T PO ×2 (16:41→20:59)
[2017-04-25] MEDS ORDERED: OPTIRAY 320 IV PRN (16:45)
--- NOTE | 2017-04-25 17:05 | DIAGNOSTIC IMAGING REPORT ---
CHEST ONE VIEW PORTABLE CLINICAL HISTORY: 51 years-old Male presenting with Evaluate Fever/Sepsis. TECHNIQUE: Portable upright AP view of the chest was obtained. COMPARISON: 02/14/2017. FINDINGS: Cardiomediastinal silhouette normal. Persistent opacification of the left apex with relative radiolucency of the left midlung. Left basilar opacity has decreased from prior. Blunting of the left costophrenic angle persists. No large pneumothorax. Degenerative changes of the acromioclavicular joints. 2 leads project over the epigastrium. IMPRESSION: 1. Decreased left basilar opacity with small left pleural effusion. 2. Relative radiolucency of the left midlung and opacity of the left apex, findings which appear to be chronic in nature. This may relate to the presence of loculated apical fluid. Electronically signed by: Ronnell Renee M.D. 04/25/2017 5:03 PM Dictated Date/Time: 04/25/2017 5:01 PM
[2017-04-25 17:08] LABS: BASO % 0.4 %; BASO ABS # 0.02 K/uL (0-0.2); EOS % 1.3 %; EOS ABS # 0.07 K/uL (0-0.5); HEMATOCRIT 28.5 % (42-52); HEMOGLOBIN 10.6 g/dL (14.0-18.0); IG# 0.04 K/uL (0.00-0.02); LYMPH % 16.2 %; LYMPH ABS # 0.87 K/uL (1.2-3.4); MEAN CORPUSCULAR HEMOGLOBIN 30.1 pg (25-34); MEAN CORPUSCULAR HGB CONC 37.2 g/dl (32-36); MEAN PLATELET VOLUME 10.2 fL (7.4-10.4); MONO % 8.2 %; MONO ABS # 0.44 K/uL (0.11-0.59); NEUT % 73.2 %; NEUT ABS # 3.94 K/uL (1.4-6.5); PLATELET COUNT 211 K/uL (130-400); RED CELL DISTRIBUTION WIDTH CV 14.6 % (11.5-14.5); RED CELL DISTRIBUTION WIDTH SD 43.1 fL (36.4-46.3); WHITE BLOOD COUNT 5.38 K/uL (4.8-10.8)
[2017-04-25 17:38] LABS: ALBUMIN 3.2 gm/dl (3.4-5.0); ALKALINE PHOSPHATASE 100 U/L (45-117); ALT/SGPT 20 U/L (12-78); AST/SGOT 11 U/L (15-37); BLOOD UREA NITROGEN 28 mg/dl (7-18); CALCIUM 8.6 mg/dl (8.5-10.1); CARBON DIOXIDE 32 mmol/L (21-32); CREATININE 1.99 mg/dl (0.60-1.40); LIPASE 33 U/L (73-393); POTASSIUM 3.7 mmol/L (3.5-5.1); SODIUM 129 mmol/L (136-145); TOTAL PROTEIN 7.4 gm/dl (6.4-8.2)
[2017-04-25 17:39] LABS: GLUCOSE 438 mg/dl (70-99)
[2017-04-25 17:59] LABS: INFLUENZA B ANTIGEN Neg for Influ B (NEG)
[2017-04-25] MEDS ORDERED: SODIUM CHLORIDE 0.9% 1000ML 1,000 ML IV STA (18:14)
--- NOTE | 2017-04-25 18:36 | DIAGNOSTIC IMAGING REPORT ---
(CHEST) THORAX WITHOUT CLINICAL HISTORY: 51 years-old Male presenting with cp, sob, tachycardic. TECHNIQUE: Multidetector CT imaging of the chest was performed without the use of intravenous contrast. IV contrast: None. A dose lowering technique was used consistent with the principles of ALARA (as low as reasonably achievable). COMPARISON: 02/12/2017. CT DOSE (mGy.cm): The estimated cumulative dose is 650.88 inclusive of the abdomen and pelvis. FINDINGS: Spool Carrier topogram: Implanted device projects over the epigastrium. Cholecystectomy clips. On soft tissue windows, few subcentimeter nodules noted in the thyroid. No axillary, supraclavicular, or mediastinal lymphadenopathy. Evaluation of the laura limited without intravenous contrast. Normal aorta. Normal heart size. Mild coronary artery calcification. Trace left pleural effusion. This is significantly decreased from prior. No right pleural effusion, resolved from prior. An implanted lead courses along the epigastrium and anterior left peritoneum. Cholecystectomy clips noted. On lung windows, there has been complete resolution of previously noted right upper lung opacities. Furthermore, significantly decreased left lower lobe dependent atelectasis. Minimal subpleural reticular opacities in the left lower lobe may be postinfectious/postinflammatory. No interlobular septal thickening. No consolidation in the right lower lobe. Postsurgical changes of left upper lobectomy as on prior exam. Airways otherwise patent. On bone windows, minimal degenerative changes of the spine. IMPRESSION: 1. Complete resolution of previously noted right upper lobe pneumonia. 2. Resolution of right pleural effusion and right basilar atelectasis. 3. Trace left pleural effusion and trace left basilar atelectasis. 4. No residual pulmonary edema. 5. Postsurgical changes of left upper lobectomy. Electronically signed by: Ronnell Renee M.D. 04/25/2017 6:35 PM Dictated Date/Time: 04/25/2017 6:29 PM
--- NOTE | 2017-04-25 18:43 | DIAGNOSTIC IMAGING REPORT ---
ABDOMEN AND PELVIS CT WITHOUT CONTRAST CT DOSE: 650.88 mGy.cm HISTORY: Nausea. Vomiting. Generalized abdominal pain, hypotensive h/o psoas abscess TECHNIQUE: Multiaxial CT images of the abdomen and pelvis were performed without contrast. A dose lowering technique was utilized adhering to the principles of ALARA. COMPARISON STUDY: Abdomen and pelvis CT 02/03/2017. FINDINGS: Trace left pleural effusion which has improved. Gastric stimulator is noted. No pneumoperitoneum. No pneumatosis. No suspicious lytic or blastic osseous lesions. Cholecystectomy. The unenhanced liver, spleen, adrenal glands, and pancreas are unremarkable. No retroperitoneal lymphadenopathy. There is a punctate stone within the lower pole the left kidney. No ureteral stones. No hydronephrosis. The bladder is mildly distended. Suboptimal evaluation for bowel pathology due to the lack of intravenous and oral contrast. However, there is no definite bowel wall thickening or obstruction. Focal scarring within the right lower quadrant subcutaneous fat. Patient is status post removal of a right lower quadrant lumbar stimulator. No abscess identified within the lumbar soft tissues. The appendix is identified and measure between 6 and 9 mm. However, there is no periappendiceal fat stranding at this time. This is similar in size compared the prior study. Therefore, no evidence for acute appendicitis. IMPRESSION: 1. No bowel wall thickening or obstruction. 2. Interval removal of the spinal stimulator device/leads. No loculated fluid collections remaining within the lumbar region to suggest an abscess. 3. Trace left pleural effusion which has improved. 4. Left-sided nephrolithiasis. No hydronephrosis. 5. Cholecystectomy. 6. Stable appendix. Therefore, no evidence for acute appendicitis. 7. Mildly distended bladder. Electronically signed by: Danilo Langley M.D. 04/25/2017 6:41 PM Dictated Date/Time: 04/25/2017 6:32 PM
[2017-04-25] MEDS ORDERED: METOCLOPRAMIDE HCL INJ 5 MG/ML 2 ML VIAL IV STA (18:56)
[2017-04-25] MEDS ORDERED: GABAPENTIN 600 MG TAB PO STA (19:11)
[2017-04-25] MEDS ORDERED: ACETAMINOPHEN IV 100 ML IV STA (19:11)
--- NOTE | 2017-04-25 19:32 | History and Physical ---
History & Physical Date & Time of Service: Apr 25, 2017 at 19:32 . Chief Complaint: nausea, vomiting, weakness . Primary Care Physician: Bran Burgess M.D. . History of Present Illness Source: patient, family, clinic records, hospital records 51 [address]O male followed by Dr. Burgess. History of diabetes mellitus type 2 diagnosed in 2000, complicated by severe autonomic and peripheral neuropathy. Severe gastroparesis. Status post gastric stimulator at [facility] about 1 year ago. Chronic pain due to severe peripheral neuropathy. Status post intrathecal pump placement, but it had to be removed due to infection. Completed course of IV vancomycin on 03/31/17. Hospitalized at [facility] in early April due to intractable nausea and vomiting due to gastroparesis. Metoclopramide stopped because of hallucinations. Discharged on ondansetron and prochlorperazine PRN. Has had ongoing nausea and vomiting since returning home. Vomiting about 12 times a day. No abdominal pain or significant abdominal distention. Not able to keep down meds or nutrition. Ondansetron and prochlorperazine not effective. Having loose stools every other day. No gross hematemesis or hematochezia. Blood sugars fluctuating due to GI symptoms. Seen in clinic today. Found to be hypotensive and tachycardic. Referred to ED for further evaluation. . Past Medical/Surgical History Chronic and Resolved Medical Problems: (1) Chronic pain Status: Chronic (2) Diabetic autonomic neuropathy Status: Chronic (3) Diabetic peripheral neuropathy Status: Chronic (4) Gastroparesis Permanent Comment: s/p gastric stimulator Status: Chronic (5) Hypertension Status: Chronic (6) Infection of intrathecal pump Status: Resolved (7) Lung cancer Permanent Comment: dx 01/2016; adenoCa SHAWN; + hilar nodes; s/p left upper lobectomy + chemo Status: Chronic (8) Orthostatic hypotension Status: Chronic (9) Pneumonia Status: Resolved Surgical Problems: (1) H/O colonoscopy Permanent Comment: 04/22/2013- Mildly congested and erythematous mucosa in the ascending colon. One 1 mm polyp in the ascending colon resected. One benign appearing 1 mm polyp in the rectum resected. Internal hemorrhoids; Dr. Demarco Status: Chronic (2) H/O esophagogastroduodenoscopy Permanent Comment: 01/26/2015- LA Grade B reflux esophagitis, gastritis; Dr. Major Status: Chronic (3) History of cholecystectomy Status: Chronic (4) History of tonsillectomy and adenoidectomy Status: Chronic (5) Hx of total knee arthroplasty Status: Chronic (6) S/P lobectomy of lung Permanent Comment: left upper lobectomy for adenoCa Status: Chronic . Family History FATHER Diabetes mellitus MOTHER Diabetes mellitus SISTER Renal cancer GRANDFATHER Diabetes mellitus Social History Smoking Status: Former Smoker Drug Use: none Marital Status: Housing status: lives with significant other Occupational Status: disabled Multi-Drug Resistant Organisms History of MDRO: No Allergies Coded Allergies: BEE STING (Verified Allergy, Mild, SWELLING AT SITE, SOB, 04/25/17) Penicillins (Unverified Allergy, Unknown, "SINCE "-Amoxicillin, 04/25) Metoclopramide (Verified Adverse Reaction, Unknown, hallucinations, ) Home Medications Scheduled Amlodipine (Norvasc), 5 MG PO DAILY Cholecalciferol (Vitamin D3), 50,000 UNITS PO WK Docusate Sodium (Docusate Sodium), 200 MG PO DAILY Fentanyl (Fentanyl), 100 MCG TOP Q2D Ferrous Sulfate (Kp Ferrous Sulfate), 325 MG PO BID Gabapentin (Gabapentin), 300 MG PO TID Hydrochlorothiazide (Hydrochlorothiazide), 12.5 MG PO DAILY Insulin Glargine (Basaglar Kwikpen), 15 UNITS SQ HS Insulin Lispro (Human) (Humalog), 0 SQ UD Levetiracetam (Keppra), 750 MG PO BID Lisinopril (Lisinopril), 40 MG PO DAILY Metoprolol Tartrate (Lopressor) (Lopressor), 75 MG PO BID Mirtazapine (Mirtazapine), 15 MG PO HS Multiple Vitamin (Multivitamins), 1 CAP PO QAM Omeprazole (Prilosec), 20 MG PO DAILY Scheduled PRN Acetaminophen (Tylenol), 1,000 MG PO Q6H PRN for Pain Albuterol Hfa (Ventolin Hfa), 2 PUFFS INH Q6H PRN for Wheezing Epinephrine (Epipen), 0.3 MG IM UD PRN for ALLERGIC REACTION Ondansetron (Ondansetron HCl), 8 MG PO Q8 PRN for Nausea Oxycodone Hcl (Oxycodone Hcl), 10 TAB PO Q4H PRN for Pain Prochlorperazine Maleate (Compazine), 10 MG PO Q6H PRN for Nausea or Vomiting Review of Systems Constitutional: + weight loss, No fever Eyes: No worsening of vision, No diplopia ENT: + sore throat (attributed to emesis), No nasal symptoms Respiratory: No cough, No shortness of breath Cardiovascular: No chest pain, No edema, No palpitations Abdomen: + problem reported (per HPI) Musculoskeletal: + joint pain (knee pain) Genitourinary - Male: No dysuria Neurologic: + problem reported (severe neuropathy) Psychiatric: + depression symptoms Endocrine: + problem reported (per HPI) Hematologic / Lymphatic: + abnormal bleeding/bruising (bruises easily), No swollen lymph nodes Integumentary: No rash, No new/changing skin lesions Physical Exam Vital Signs Date Time Temp Pulse Resp B/P (MAP) Pulse Ox O2 Delivery O2 Flow Rate FiO2 04/25/17 18:41 94 16 174/112 97 Room Air 04/25/17 17:05 89 16 122/85 95 Room Air 04/25/17 16:17 106 04/25/17 16:05 36.4 85 16 91/62 98 Room Air General Appearance: + moderate distress, + thin Head: normocephalic, atraumatic Eyes: normal inspection, PERRL, EOMI, sclerae normal ENT: hearing grossly normal, pharynx normal Neck: supple, no adenopathy, thyroid normal, no JVD, trachea midline Respiratory/Chest: lungs clear, no respiratory distress, no accessory muscle use Cardiovascular: regular rate, rhythm, no edema, no gallop, no JVD, normal peripheral pulses, + systolic murmur (I/ sys murmur at base) Abdomen/GI: non tender, soft, no organomegaly, + pertinent finding (quiet bowel sounds) Back: + pertinent finding (lumbar incision healed; no erythema or drainage) Extremities/Musculoskelatal: normal inspection, no calf tenderness, normal capillary refill Neurologic/Psych: car clerk pullman II-XII nml as tested (PERRL, EOMI, no facial palsy), no motor/sensory deficits (motor strength upper and lower extremities grossly intact), oriented x 3, + pertinent finding (mildly somnolent; decreased sensation to light touch distal lower extremities) Skin: normal color, warm/dry, no rash, + pertinent finding (10 x 15 mm ulceration dorsum right great toe without erythema or drainage) Lymphatic: no adenopathy (cervical) Diagnostics Laboratory Results Results Past 24 Hours Test 04/25/17 16:50 04/25/17 17:06 04/25/17 18:14 Range/Units White Blood Count 5.38 4.8-10.8 K/uL Red Blood Count 3.52 4.7-6.1 M/uL Hemoglobin 10.6 14.0-18.0 g/dL Hematocrit 28.5 42-52 % Mean Corpuscular Volume 81.0 80-100 fL Mean Corpuscular Hemoglobin 30.1 25-34 pg Mean Corpuscular Hemoglobin Concent 37.2 32-36 g/dl Platelet Count 211 130-400 K/uL Mean Platelet Volume 10.2 7.4-10.4 fL Neutrophils (%) (Auto) 73.2 % Lymphocytes (%) (Auto) 16.2 % Monocytes (%) (Auto) 8.2 % Eosinophils (%) (Auto) 1.3 % Basophils (%) (Auto) 0.4 % Neutrophils # (Auto) 3.94 1.4-6.5 K/uL Lymphocytes # (Auto) 0.87 1.2-3.4 K/uL Monocytes # (Auto) 0.44 0.11-0.59 K/uL Eosinophils # (Auto) 0.07 0-0.5 K/uL Basophils # (Auto) 0.02 0-0.2 K/uL RDW Standard Deviation 43.1 36.4-46.3 fL RDW Coefficient of Variation 14.6 11.5-14.5 % Immature Granulocyte % (Auto) 0.7 % Immature Granulocyte # (Auto) 0.04 0.00-0.02 K/uL Erythrocyte Sedimentation Rate 25 0-14 mm/hr Prothrombin Time 10.9 9.0-12.0 SECONDS Prothromb Time International Ratio 1.0 0.9-1.1 Venous Blood pH 7.37 7.36-7.41 Venous Blood Partial Pressure CO2 56 38.0-50.0 mmHg Venous Blood Partial Pressure O2 28 mmHg Venous Blood HCO3 31 mmol/L Venous Blood Oxygen Saturation < 60.0 % Venous Blood Base Excess 5.0 mEq/L Sodium Level 129 136-145 mmol/L Potassium Level 3.7 3.5-5.1 mmol/L Chloride Level 91 98-107 mmol/L Carbon Dioxide Level 32 21-32 mmol/L Anion Gap 6.0 3-11 mmol/L Blood Urea Nitrogen 28 7-18 mg/dl Creatinine 1.99 0.60-1.40 mg/dl Est Creatinine Clear Calc Drug Dose 42.5 ml/min Estimated GFR () 43.8 Estimated GFR (Non- 37.8 BUN/Creatinine Ratio 14.3 10-20 Random Glucose 438 70-99 mg/dl Lactic Acid Level 1.5 0.4-2.0 mmol/L Calcium Level 8.6 8.5-10.1 mg/dl Total Bilirubin 0.7 0.2-1 mg/dl Direct Bilirubin 0.2 0-0.2 mg/dl Aspartate Amino Transf (AST/SGOT) 11 15-37 U/L Alanine Aminotransferase (ALT/SGPT) 20 12-78 U/L Alkaline Phosphatase 100 45-117 U/L Troponin I < 0.015 0-0.045 ng/ml C-Reactive Protein < 0.29 0-0.29 mg/dl Total Protein 7.4 6.4-8.2 gm/dl Albumin 3.2 3.4-5.0 gm/dl Lipase 33 73-393 U/L Beta-Hydroxybutyric Acid 5.24 0.2-2.81 mg/dL Influenza Type A Antigen Neg for Influ A NEG Influenza Type B Antigen Neg for Influ B NEG Osmolality 302 280-300 mOsm/kg Microbiology Results 04/25/17 Blood Culture, Received Pending 04/25/17 Blood Culture, Received Pending Diagnostic Radiology CHEST ONE VIEW PORTABLE FINDINGS: Cardiomediastinal silhouette normal. Persistent opacification of the left apex with relative radiolucency of the left midlung. Left basilar opacity has decreased from prior. Blunting of the left costophrenic angle persists. No large pneumothorax. Degenerative changes of the acromioclavicular joints. 2 leads project over the epigastrium. IMPRESSION: 1. Decreased left basilar opacity with small left pleural effusion. 2. Relative radiolucency of the left midlung and opacity of the left apex, findings which appear to be chronic in nature. This may relate to the presence of loculated apical fluid. Electronically signed by: Ronnell Renee M.D. 04/25/2017 5:03 PM Dictated Date/Time: 04/25/2017 5:01 PM (CHEST) THORAX WITHOUT FINDINGS: Lines Tender topogram: Implanted device projects over the epigastrium. Cholecystectomy clips. On soft tissue windows, few subcentimeter nodules noted in the thyroid. No axillary, supraclavicular, or mediastinal lymphadenopathy. Evaluation of the laura limited without intravenous contrast. Normal aorta. Normal heart size. Mild coronary artery calcification. Trace left pleural effusion. This is significantly decreased from prior. No right pleural effusion, resolved from prior. An implanted lead courses along the epigastrium and anterior left peritoneum. Cholecystectomy clips noted. On lung windows, there has been complete resolution of previously noted right upper lung opacities. Furthermore, significantly decreased left lower lobe dependent atelectasis. Minimal subpleural reticular opacities in the left lower lobe may be postinfectious/postinflammatory. No interlobular septal thickening. No consolidation in the right lower lobe. Postsurgical changes of left upper lobectomy as on prior exam. Airways otherwise patent. On bone windows, minimal degenerative changes of the spine. IMPRESSION: 1. Complete resolution of previously noted right upper lobe pneumonia. 2. Resolution of right pleural effusion and right basilar atelectasis. 3. Trace left pleural effusion and trace left basilar atelectasis. 4. No residual pulmonary edema. 5. Postsurgical changes of left upper lobectomy. Electronically signed by: Ronnell Renee M.D. 04/25/2017 6:35 PM Dictated Date/Time: 04/25/2017 6:29 PM [address]OMEN AND PELVIS CT WITHOUT CONTRAST FINDINGS: Trace left pleural effusion which has improved. Gastric stimulator is noted. No pneumoperitoneum. No pneumatosis. No suspicious lytic or blastic osseous lesions. Cholecystectomy. The unenhanced liver, spleen, adrenal glands, and pancreas are unremarkable. No retroperitoneal lymphadenopathy. There is a punctate stone within the lower pole the left kidney. No ureteral stones. No hydronephrosis. The bladder is mildly distended. Suboptimal evaluation for bowel pathology due to the lack of intravenous and oral contrast. However, there is no definite bowel wall thickening or obstruction. Focal scarring within the right lower quadrant subcutaneous fat. Patient is status post removal of a right lower quadrant lumbar stimulator. No abscess identified within the lumbar soft tissues. The appendix is identified and measure between 6 and 9 mm. However, there is no periappendiceal fat stranding at this time. This is similar in size compared the prior study. Therefore, no evidence for acute appendicitis. IMPRESSION: 1. No bowel wall thickening or obstruction. 2. Interval removal of the spinal stimulator device/leads. No loculated fluid collections remaining within the lumbar region to suggest an abscess. 3. Trace left pleural effusion which has improved. 4. Left-sided nephrolithiasis. No hydronephrosis. 5. Cholecystectomy. 6. Stable appendix. Therefore, no evidence for acute appendicitis. 7. Mildly distended bladder. Electronically signed by: Danilo Langley M.D. 04/25/2017 6:41 PM Dictated Date/Time: 04/25/2017 6:32 PM . EKG EKG performed at 16:21 reviewed and demonstrated NSR at 98 / minute, poor R- wave progression, slight ST depression II, III, aVF. . Impression Assessment and Plan DIABETES TYPE 2, UNCONTROLLED DM type 2, complicated by autonomic and peripheral neuropathy. Random glucose in ED 438. IV insulin infusion until blood sugars under better control, then transition to SQ. ACUTE KIDNEY INJURY Serum creatinine 1.99 compared to recent baseline of 1.4. IVAN secondary to volume depletion due to N/V. IV fluids. Follow. HYPONATREMIA Serum sodium 129 with glucose of 438. Corrected sodium 134. Electrolyte losses secondary to N/V. Follow. INTRACTABLE NAUSEA & VOMITING Severe diabetic gastroparesis. S/P gastric stimulator ~ 1 year ago ([facility], [place]). Intolerant of metoclopramide (hallucinations). Aprepitant has been helpful in the past; will order during hospital stay, but there may be financial barriers to outpt Rx. IV famotidine and ODT lansoprazole for acid suppression. Consult GI. Outpt f/u @ [facility] for gastric stimulator f/u when able. LOOSE STOOLS Patient reports loose stools every other day. Check for C diff. Consider bacterial overgrowth. NUTRITION / WEIGHT LOSS Weight fluctuates, partly due to volume status. Patient states that he has lost about 40 lbs over past several months. Review of wts here: 85 - 91 kg in September, 98-100 kg in February 2017, 81 kg in March, 69 kg now. Suspect malnutrition / wt loss secondary to gastroparesis and poor PO intake. History of lung Ca, but no apparent recurrence. Consult Nutrition. HYPERTENSION BP low upon arrival to ED- probably due to volume depletion. BP elevated after receiving IV fluids. Unable to take oral meds due to N/V. Hold HCTZ because of dehydration. Hold amlodipine until N&V improve. IV metoprolol until able to take oral metoprolol tartrate. IV enalapril until able to take oral lisinopril. Follow and titrate therapy. SEVERE DIABETIC NEUROPATHY Followed by Dr. [facility] for [facility]. Had intrathecal pump, but had to be removed due to infection. Continue fentanyl patch 100 mcg / hour, changed q 48 hrs. IV hydromorphone 1 mg q 4 hrs PRN severe pain until able to resume oxycodone for breakthrough pain. Gabapentin prescribed- hold for nausea and vomiting. Patient feels that gabapentin has not been effective anyway- ? stop, titrate dose, or consider alternatives. LUNG CANCER Adenocarcinoma of lung, s/p resection and chemo. No apparent recurrence per CT chest. Has f/u appt with Medical Oncology. SEIZURE DISORDER Continue levetiracetam. ULCERATION RIGHT GREAT TOE Has ulcer dorsum of right great toe which patient attributes to crawling on bathroom floor when he has nausea and vomiting. Consult Wound Care Nursing. GENERAL DEBILITATION Multifactorial. PT / OT. VTE PROPHYLAXIS Moderate-high risk. SQ heparin. Ambulate as able. DISPOSITION Admit to Telemetry Unit. Discharge disposition to be determined. May need skilled care or inpt rehab. Medical follow-up with Dr. Burgess. . VTE Prophylaxis VTE Risk Assessment Done? Y/N: Yes Risk Level: Moderate Given or contraindicated: Unfractionated heparin SQ
--- NOTE | 2017-04-25 20:00 | NUR ---
A: ASSESSED IN ED W/ AT BEDSIDE. SIGNED CODE WORD [employer] FALL AGREEMENT FORMS. SEE EMR FOR COMPLETE ADM ASSESSMENT. CALL PADILLA IN REACH. TO BE ADMITTED TO TELEMETRY UNIT. CUSTOMER PROGRAM SPECIALIST TO CONTINUE PT CARE UNTIL THAT TIME.
[2017-04-25] MEDS ORDERED: METO25TA56 PO (20:52)
[2017-04-25] MEDS ORDERED: CHOL1TAB63 PO (20:52)
[2017-04-25] MEDS ORDERED: RMR15 PO (20:52)
[2017-04-25] MEDS ORDERED: LISI40TA3 PO (20:52)
[2017-04-25] MEDS ORDERED: CLC100 PO (20:59)
[2017-04-25] MEDS ORDERED: FNTTP100 TOP (20:59)
[2017-04-25] MEDS ORDERED: INSU100I23 SQ (20:59)
[2017-04-25] MEDS ORDERED: INSU100I SQ (20:59)
[2017-04-25] MEDS ORDERED: PROC10TA PO (20:59)
[2017-04-25] MEDS ORDERED: AMLO5TAB3 PO (20:59)
[2017-04-25] MEDS ORDERED: OXYC-164 PO (20:59)
[2017-04-25] MEDS ORDERED: OMEP20CA9 PO (20:59)
[2017-04-25] MEDS ORDERED: HYDR12.55 PO (20:59)
[2017-04-25] MEDS ORDERED: GABA-1219 PO (20:59)
[2017-04-25] MEDS ORDERED: INSULIN ASPART 100 UNITS/ML 3 ML PEN SC SCH (21:00)
[2017-04-25] MEDS ORDERED: ACET-1256 PO (21:03)
[2017-04-25] MEDS ORDERED: INSULIN IV INFUSION PROTOCOL STA (21:08)
[2017-04-25] MEDS ORDERED: MODERATE STRESS LEVEL ONE (21:15)
[2017-04-25] MEDS ORDERED: INSULIN PROTOCOL GOAL RANGE ONE (21:15)
[2017-04-25] MEDS ORDERED: FAMOTIDINE 20MG IV PUSH 5 ML IV STA (21:16)
[2017-04-25] MEDS ORDERED: METOPROLOL TARTRATE 1 MG/ML VIAL IV STA (21:17)
--- NOTE | 2017-04-25 23:15 | NUR ---
A: pt received into room 282-2 from ED. Oriented to room and call amaya system. ekg monitor tech applied and vital signs obtained. will continue to monitor.
[2017-04-25] MEDS ORDERED: LANSOPRAZOLE SOLUTAB 15 MG PO ONE (23:30)
[2017-04-25] MEDS ORDERED: GLUCOSE 40% GEL 15 GM TUBE PO PRN (23:45)
[2017-04-25] MEDS ORDERED: DEXTROSE 50% 50 ML SYR IV PRN (23:45)
[2017-04-25] MEDS ORDERED: GLUCAGON FOR INJ 1 MG VIAL SQ PRN (23:45)
[2017-04-25] MEDS ORDERED: FENTANYL PATCH REMOVE & WASTE ONE (23:45)
[2017-04-25] MEDS ORDERED: GLUCOSE 10 TABS/TUBE PO PRN (23:45)
[2017-04-25] MEDS ORDERED: POTASSIUM CHLORIDE INJ 40 MEQ in SODIUM CHLORIDE 0.9% 1000ML 1,000 ML IV SCH (23:45)
[2017-04-26] VITALS (9 sets, daily range): BP systolic 104–159; BP diastolic 68–90; PULSE 80–93; TEMP 36.5–36.8; O2SAT 95–99; BMI 23.1
[2017-04-26] MEDS ORDERED: ENALAPRILAT IV 1.25 MG in DEXTROSE 5% 25ML 25 ML IV SCH ×2
[2017-04-26] MEDS ORDERED: INSULIN HUMAN REGULAR BOLUS IV SCH
[2017-04-26] MEDS ORDERED: INSULIN HUMAN REGULAR IV BOLUS 1.5 UNIT in SYRINGE 0 ML IV SCH
--- NOTE | 2017-04-26 | NUR ---
A: pt alert and oriented X4, resting in bed at this time. VSS on room air. denies chest pain and SOB. lung sounds clear throughout. small ulceration noted to right toe, open to air. pt OOB with supervision assist and walker. call amaya within reach. will continue to monitor.
[2017-04-26] MEDS: INSULIN REGULAR 250 UNITS in SODIUM CHLORIDE 0.9% 250ML 250 ML IV SCH ×5 (00:15→10:16)
[2017-04-26] MEDS: LEVETIRACETAM 250 MG TAB PO SCH ×2 (00:16→08:26)
[2017-04-26] MEDS: FENTANYL 100 MCG/HR TDSY TD SCH (00:18)
[2017-04-26] MEDS: METOPROLOL TARTRATE 1 MG/ML VIAL IV. SCH ×2 (00:20→06:05)
--- NOTE | 2017-04-26 00:30 | NUR ---
A: Insulin gtt started at this time, per protocol. BS. next recheck in an hour. previous Fentanyl patch removed, new patch applied to left upper arm.
--- NOTE | 2017-04-26 04:00 | NUR ---
A: pt resting comfortably in bed. VSS on room air. insulin gtt on hold per protocol. Dr. Hitchcock is aware. cement mixer in place, sinus rhythm on the monitor. IVF infusing per MD order. call amaya within reach. will continue to monitor.
[2017-04-26] MEDS: D5W AND 1/2NSS + 20MEQ KCL 1,000 ML IV SCH ×2 (04:48→14:51)
--- NOTE | 2017-04-26 05:00 | NUR ---
A: insulin gtt restarted at this time and adjusted per protocol. will recheck in 1 hour.
[2017-04-26] MEDS ORDERED: APREPITANT 40 MG CAP PO SCH (06:00)
[2017-04-26] MEDS ORDERED: FAMOTIDINE IV INJ 20 MG in SYRINGE 3 ML IV SCH (06:00)
[2017-04-26] MEDS ORDERED: ENALAPRILAT IV 0.625 MG in DEXTROSE 5% 25ML 25 ML IV ONE (06:11)
[2017-04-26 06:16] LABS: HEMATOCRIT 27.4 % (42-52); HEMOGLOBIN 9.8 g/dL (14.0-18.0)
[2017-04-26 06:47] LABS: CREATININE 1.48 mg/dl (0.60-1.40); POTASSIUM 4.1 mmol/L (3.5-5.1)
[2017-04-26 06:55] LABS: HEMOGLOBIN A1C 7.9 % (4.5-5.6)
--- NOTE | 2017-04-26 08:00 | NUR ---
A- Alert and oriented, oob with supervision. Tolerating clear liquid diet. Insulin gtt infusing. See PCS for full assessment
[2017-04-26] MEDS: HEPARIN SOD 5000 UNIT/0.5 ML CARP SQ SCH ×2 (08:35→20:57)
[2017-04-26] MEDS: ONDANSETRON INJ 2 MG/ML 2 ML VIAL IV PRN ×2 (08:35→16:42)
[2017-04-26] MEDS: CHECK FENTANYL PATCH PLACEMENT SCH ×3 (08:37→23:32)
[2017-04-26] MEDS ORDERED: INSULIN ASPART 100 UNITS/ML 3 ML PEN SC SCH (09:00)
[2017-04-26] MEDS ORDERED: LANSOPRAZOLE SOLUTAB 15 MG PO SCH (09:00)
[2017-04-26] MEDS ORDERED: PHARMACY GLYCEMIC MGMT CONSULT PRN (09:20)
[2017-04-26] MEDS ORDERED: LEVETIRACETAM 250 MG TAB PO ONE (09:30)
--- NOTE | 2017-04-26 10:19 | Progress Note ---
Subjective Date of Service: Apr 26, 2017. Subjective Pt evaluation today including: conversation w/ patient, physical exam, lab review, review of studies, review of inpatient medication list Saw/examined the patient in room 282 He presented with nausea/vomiting/dehydration Has had long-term, chronic issues with nausea/vomiting +worsening pain; which is also a chronic issue Most symptoms have persisted since yesterday Problem List Medical Problems: (1) Acute kidney injury Status: Acute (2) Altered mental status Status: Acute (3) Anemia Status: Acute (4) Chronic pain Status: Acute (5) Dehydration Status: Acute (6) Dehydration Status: Acute (7) Dehydration Status: Acute (8) Dehydration Status: Acute (9) Dehydration Status: Acute (10) Diabetes mellitus with hyperglycemia Status: Acute (11) Failure of outpatient treatment Status: Acute (12) Hyperglycemia Status: Acute (13) Hypomagnesemia Status: Acute (14) Hypomagnesemia Status: Acute (15) Hyponatremia Status: Acute (16) Intractable vomiting Status: Acute (17) Intractable vomiting Status: Acute (18) Intrathecal pump infection Status: Acute (19) Orthostatic hypotension Status: Acute (20) Pneumonia Status: Acute (21) Post-operative complication Status: Acute (22) Sepsis Status: Acute (23) Vomiting Status: Acute (24) Vomiting Status: Acute Review of Systems Constitutional: + weakness, No fever, No chills Respiratory: No cough, No sputum, No shortness of breath Cardiac: No chest pain, No edema, No palpitations Abdomen: + pain, + nausea, + vomiting, No diarrhea, No constipation, No GI bleeding Musculoskeletal: + joint pain, + muscle pain Heme: No abnormal bleeding/bruising Medications Current Inpatient Medications Medications (Trade) Dose Ordered Sig/Cal Route Start Time Stop Time Status Last Admin Dose Admin Ioversol (Optiray 320) 100 ml UD PRN IV 04/25/17 16:45 04/29/17 16:44 Heparin Sodium (Porcine) (Heparin Sq 5000 Unit/0.5ml) 5,000 unit Q12 SQ 04/26/17 09:00 05/26/17 08:59 04/26/17 08:35 5,000 UNIT Ondansetron HCl (Zofran Inj) 4 mg Q6H PRN IV 04/25/17 19:30 05/25/17 19:29 04/26/17 08:35 4 MG Albuterol (Ventolin Hfa Inhaler) 2 puffs Q6H PRN INH 04/25/17 21:15 05/25/17 21:14 Fentanyl (Duragesic Patch) 100 mcg Q2D@2100 TD 04/25/17 23:45 05/09/17 23:44 04/26/17 00:18 100 MCG Prochlorperazine Maleate (Compazine Tab) 10 mg Q6H PRN PO 04/25/17 21:15 05/25/17 21:14 Lansoprazole (Prevacid Solutab) 15 mg BID PO 04/26/17 09:00 05/26/17 08:59 04/26/17 08:26 15 MG Metoprolol Tartrate (Lopressor Iv) 5 mg Q6 IV. 04/26/17 00:00 05/26/17 00:00 04/26/17 06:05 5 MG Insulin Aspart (novoLOG ASPART) SLIDING SCALE HS SC 04/26/17 09:00 05/26/17 08:59 04/26/17 08:34 2 UNITS Hydromorphone HCl (Dilaudid Inj) 1 mg Q4H PRN IV 04/25/17 21:15 05/09/17 21:14 Insulin Human Regular 250 units/ Sodium Chloride 252.5 ml @ 0 mls/hr Q24H IV 04/26/17 00:00 05/26/17 00:00 04/26/17 09:30 1.1 MLS/HR Glucose (Glucose 40% Gel) UD PRN PO 04/25/17 23:45 05/25/17 23:44 Glucose (Glucose Chew Tab) 1 tabs UD PRN PO 04/25/17 23:45 05/25/17 23:44 Dextrose (Dextrose 50% 50ML Syringe) 50 ml UD PRN IV 04/25/17 23:45 05/25/17 23:44 Glucagon (Glucagon Inj) 1 mg UD PRN SQ 04/25/17 23:45 05/25/17 23:44 Miscellaneous (Fentanyl Patch Remove & Waste) 1 ea Q2D@2059 N/A 04/27/17 20:59 05/27/17 20:58 Miscellaneous Information (Check Fentanyl Patch Placement) 1 ea QS N/A 04/26/17 08:00 05/26/17 07:59 04/26/17 08:37 1 EA Potassium Chloride/Dextrose/ Sod Cl 1,000 ml @ 125 mls/hr Q8H IV 04/26/17 04:45 05/26/17 04:44 04/26/17 04:48 125 MLS/HR Enalaprilat 0.625 mg/Dextrose 25.5 ml @ 100 mls/hr Q6H IV 04/26/17 12:00 05/26/17 11:59 Levetiracetam (Keppra Tab) 1,000 mg BID PO 04/26/17 21:00 05/26/17 20:59 Duloxetine HCl (Cymbalta Cap) 30 mg QAM PO 04/26/17 09:15 05/26/17 09:14 Miscellaneous Information (Consult Glycemic Management Pharmacy) 1 ea UD PRN N/A 04/26/17 09:20 05/26/17 09:19 Pantoprazole Sodium (Protonix Tab) 40 mg BID PO 04/26/17 21:00 05/26/17 20:59 UNV Fosaprepitant 115 mg/Sodium Chloride 115.0333 ml @ 450 mls/hr ONE ONCE IV 04/26/17 09:45 04/26/17 10:00 UNV Objective Vital Signs Date Time Temp Pulse Resp B/P (MAP) Pulse Ox O2 Delivery O2 Flow Rate FiO2 04/26/17 07:59 36.5 80 20 159/90 (113) 99 04/26/17 06:05 84 124/80 04/26/17 04:27 36.8 84 16 149/88 (108) 98 Room Air 04/26/17 04:00 97 Room Air 04/26/17 02:00 82 18 136/78 (97) Room Air 04/26/17 00:20 104 204/113 04/26/17 00:00 97 Room Air 04/25/17 22:45 81 150/118 96 Room Air 04/25/17 21:06 87 18 151/102 98 Room Air 04/25/17 20:00 90 18 166/113 97 Room Air 04/25/17 19:54 Room Air 04/25/17 18:41 94 16 174/112 97 Room Air 04/25/17 17:05 89 16 122/85 95 Room Air 04/25/17 16:17 106 04/25/17 16:05 36.4 85 16 91/62 98 Room Air Physical Exam General Appearance: + mild distress (secondary to pain and nausea) Respiratory/Chest: lungs clear, normal breath sounds, no respiratory distress, no accessory muscle use Cardiovascular: regular rate, rhythm, no edema, no murmur Abdomen: normal bowel sounds, soft, + tenderness Extremities: normal inspection, no pedal edema, + pertinent finding (decreased ROM of back) Neurologic/Psychiatric: no motor/sensory deficits, alert, normal mood/affect Laboratory Results Last 24 Hours Test 04/25/17 16:50 04/25/17 17:06 04/25/17 18:06 04/25/17 18:14 White Blood Count 5.38 K/uL Red Blood Count 3.52 M/uL Hemoglobin 10.6 g/dL Hematocrit 28.5 % Mean Corpuscular Volume 81.0 fL Mean Corpuscular Hemoglobin 30.1 pg Mean Corpuscular Hemoglobin Concent 37.2 g/dl Platelet Count 211 K/uL Mean Platelet Volume 10.2 fL Neutrophils (%) (Auto) 73.2 % Lymphocytes (%) (Auto) 16.2 % Monocytes (%) (Auto) 8.2 % Eosinophils (%) (Auto) 1.3 % Basophils (%) (Auto) 0.4 % Neutrophils # (Auto) 3.94 K/uL Lymphocytes # (Auto) 0.87 K/uL Monocytes # (Auto) 0.44 K/uL Eosinophils # (Auto) 0.07 K/uL Basophils # (Auto) 0.02 K/uL RDW Standard Deviation 43.1 fL RDW Coefficient of Variation 14.6 % Immature Granulocyte % (Auto) 0.7 % Immature Granulocyte # (Auto) 0.04 K/uL Erythrocyte Sedimentation Rate 25 mm/hr Prothrombin Time 10.9 SECONDS Prothromb Time International Ratio 1.0 Venous Blood pH 7.37 Venous Blood Partial Pressure CO2 56 mmHg Venous Blood Partial Pressure O2 28 mmHg Venous Blood HCO3 31 mmol/L Venous Blood Oxygen Saturation < 60.0 % Venous Blood Base Excess 5.0 mEq/L Sodium Level 129 mmol/L Potassium Level 3.7 mmol/L Chloride Level 91 mmol/L Carbon Dioxide Level 32 mmol/L Anion Gap 6.0 mmol/L Blood Urea Nitrogen 28 mg/dl Creatinine 1.99 mg/dl Est Creatinine Clear Calc Drug Dose 42.5 ml/min Estimated GFR () 43.8 Estimated GFR (Non- 37.8 BUN/Creatinine Ratio 14.3 Random Glucose 438 mg/dl Lactic Acid Level 1.5 mmol/L Calcium Level 8.6 mg/dl Total Bilirubin 0.7 mg/dl Direct Bilirubin 0.2 mg/dl Aspartate Amino Transf (AST/SGOT) 11 U/L Alanine Aminotransferase (ALT/SGPT) 20 U/L Alkaline Phosphatase 100 U/L Troponin I < 0.015 ng/ml C-Reactive Protein < 0.29 mg/dl Total Protein 7.4 gm/dl Albumin 3.2 gm/dl Lipase 33 U/L Beta-Hydroxybutyric Acid 5.24 mg/dL Influenza Type A Antigen Neg for Influ A Influenza Type B Antigen Neg for Influ B Bedside Glucose 379 mg/dl Osmolality 302 mOsm/kg Test 04/25/17 21:09 04/25/17 23:33 04/26/17 01:29 04/26/17 02:26 Bedside Glucose 369 mg/dl 332 mg/dl 249 mg/dl 200 mg/dl Test 04/26/17 03:36 04/26/17 03:55 04/26/17 04:10 04/26/17 04:29 Bedside Glucose 135 mg/dl 121 mg/dl 116 mg/dl 120 mg/dl Test 04/26/17 04:48 04/26/17 05:05 04/26/17 05:48 04/26/17 06:01 Bedside Glucose 123 mg/dl 148 mg/dl 152 mg/dl Hemoglobin 9.8 g/dL Hematocrit 27.4 % Sodium Level 135 mmol/L Potassium Level 4.1 mmol/L Chloride Level 101 mmol/L Carbon Dioxide Level 30 mmol/L Anion Gap 4.0 mmol/L Blood Urea Nitrogen 22 mg/dl Creatinine 1.48 mg/dl Est Creatinine Clear Calc Drug Dose 57.1 ml/min Estimated GFR () 62.6 Estimated GFR (Non- 54.0 BUN/Creatinine Ratio 14.6 Random Glucose 243 mg/dl Estimated Average Glucose 180 mg/dl Hemoglobin A1c 7.9 % Calcium Level 8.0 mg/dl Test 04/26/17 06:59 04/26/17 09:09 Bedside Glucose 147 mg/dl 242 mg/dl Assessment and Plan This is a 51 year old male with PMH of uncontrolled, insulin-dependent DM2 with multiple complications including severe gastroparesis s/p gastric stimulator insertion, severe peripheral neuropathy on chronic pain medications - presents with worsening nausea/vomiting/dehydration Uncontrolled DM2 patient initially started on insulin ggt due to BSGs >400 BSGs are now closer to baseline will consult pharmacy for transition from insulin drip to SQ, he has labile BSGs diabetic education he may need a new glucometer as his home one is not reading proper blood sugars Severe Gastroparesis symptoms began with nausea/vomiting he has a gastric pacemaker - will need adjustment in settings at [facility] plan for now is to do [facility] consult for further input Acute Kidney Injury superimposed on CKD stage 3 creatinine at baseline is close to 1.3-1.4 presented with creat at 1.9 due to dehydration improved with IVFs continue IVFs and monitor creat; avoid nephrotoxic agents if able Hyponatremia secondary to dehydration and elevated BSGs Na improved with IVFs Severe Diabetic Neuropathy follows with pain management at once had an intrathecal pump, had to be removed due to infection was then placed on fentanyl patch IV Dilaudid PRN ordered while inpatient appreciate pain management input - Cymbalta restarted; Keppra dose increased NUTRITION / WEIGHT LOSS Weight fluctuates, partly due to volume status. Patient states that he has lost about 40 lbs over past several months. Review of wts here: 85 - 91 kg in September, 98-100 kg in February 2017, 81 kg in March, 69 kg now. Suspect malnutrition / wt loss secondary to gastroparesis and poor PO intake. History of lung Ca, but no apparent recurrence. Consult Nutrition. HYPERTENSION BP low upon arrival to ED- probably due to volume depletion. BP elevated after receiving IV fluids. Unable to take oral meds due to N/V. Hold HCTZ because of dehydration. Hold amlodipine until N&V improve. IV metoprolol until able to take oral metoprolol tartrate. IV enalapril until able to take oral lisinopril. Follow and titrate therapy. LUNG CANCER Adenocarcinoma of lung, s/p resection and chemo. No apparent recurrence per CT chest. Has f/u appt with Medical Oncology. SEIZURE DISORDER Continue levetiracetam. ULCERATION RIGHT GREAT TOE Has ulcer dorsum of right great toe which patient attributes to crawling on bathroom floor when he has nausea and vomiting. Consult Wound Care Nursing. GENERAL DEBILITATION Multifactorial. PT / OT. VTE PROPHYLAXIS Moderate-high risk. SQ heparin. Ambulate as able. DISPOSITION Admit to Telemetry Unit. Discharge disposition to be determined. May need skilled care or inpt rehab. Medical follow-up with Dr. Burgess.
--- NOTE | 2017-04-26 10:20 | NUR ---
CWOCN: RECEIVED REQUEST FOR CONSULT, RE: ULCERATION RIGHT GREAT TOE. FOUND ESCHAR OVER 1ST METATARSAL HEAD, DORSAL SURFACE OF RIGHT 1ST TOE. PATIENT STATES SCRAPES SITE OPEN . CURRENTLY, SITE IS DRY,PINK SURROUNDING SITE, NO PAIN. REQUESTED TO ONLY HAVE COVERED TO PROTECT. PLACED SMALL BORDERED GAUZE.
[2017-04-26] MEDS: DULOXETINE (CYMBALTA) 30 MG CAP PO SCH (10:22)
[2017-04-26] MEDS ORDERED: FOSAPREPITANT DIMEGLUMINE INJ 115 MG in SODIUM CHLORIDE 0.9% 100ML 111.2 ML IV ONE (10:45)
[2017-04-26] MEDS ORDERED: INSULIN GLARGINE SOLOSTAR 100 UNITS/ML 3 ML PEN SC ONE (11:00)
--- NOTE | 2017-04-26 11:01 | Pharmacy Progress Note ---
Pharmacy Glycemic Short Note 2 Date of Service Apr 26, 2017. OUTPATIENT ANTIDIABETIC REGIMEN: * Lantus 15 units SQ qHS * Humalog SSI * HbA1c: 7.9% (04/26/17) ASSESSMENT: * Mr Hamilton is a 51yo diabetic male, admitted with uncontrolled DM and N/V/ dehydration. Mr Hamilton is known to the pharmacy glycemic management service from past admissions. * PMH is significant for severe gastroparesis, severe diabetic neuropathy, CKD stage 3, and recent significant wt loss. * Insulin gtt initiated on admission last night. BSGs have improved at this point and pharmacy has been consulted to assist with transition to SQ insulin regimen. * Patient has required only ~1 unit/hr of insulin infusion. * Pt is currently receiving D5 1/2 NS with potassium. Okay to continue for now , to help discourage hypoglycemia during transition from IV to SQ insulin, but would recommend removing dextrose from IVF if patient becomes hyperglycemic again. * Pt is on a clear liquid diet, which he seems to be tolerating. * Current A1c (7.9%) suggests that patient could use slightly better glycemic control as an outpatient. PLAN FOR INPATIENT GLYCEMIC CONTROL: * Basal insulin * Lantus 15 units SQ x1 dose now -- D/C insulin gtt 6 hours after admin of Lantus, or when instructed to HOLD per insulin infusion adjustment calculator (whichever is sooner) * Bolus insulin -- based on data from previous admissions * NovoLog per scale ACHS or Q6hrs while NPO * Goal Range: Low 120 mg/dL - High 160 mg/dL * Correction Factor: 30 mg/dL/unit * Nutritional / Prandial insulin per carb ratio of 1 unit per 15 grams CHO consumed PLAN FOR DISCHARGE: * Might consider increasing Lantus dose slightly on discharge? * Current A1c (7.9%) suggests that patient could use slightly better glycemic control as an outpatient.
--- NOTE | 2017-04-26 11:04 | Pain Management Consultation ---
Pain Management Consultation Date of Consultation Apr 26, 2017. History 51-year-old male who is well known to the [facility] pain management office with a history of neuropathic pain due to long-standing diabetes and lung malignancy. He underwent implantation of intrathecal drug delivery system for his pain in January 2017. He was on high-dose of potent opioid analgesics which was contributing to his ileus and gastroparesis related to his diabetes and therefore elected to undergo placement of intrathecal drug delivery system. However, he subsequently developed persistent CSF leak and wound infection over the pump site in the right lower quadrant. He had no explantation of the intrathecal catheter and the pump and was transferred to the [facility] and underwent 2 different dural patch procedures. Ultimately, the CSF leak was corrected and he was referred to a inpatient rehabilitation facility for IV antibiotics and rehabilitation. He is currently on fentanyl 100 g every 48 hours as well as oxycodone breakthrough pain medication at home. Consultation was placed to assist with continued neuropathic pain control. He reports that he had been doing acceptably well on fentanyl and oxycodone but then had a flare of his nausea and vomiting on and was unable to tolerate tablets in his pain became unmanageable. He denies any current symptoms or signs of CSF leakage. He feels confident that he has had successful healing of both midline spine area as well as right lower quadrant wounds. He states that his pain currently ranges between 0 and 10 out of 10 depending on her level of activity. Past Medical/Surgical History (1) Orthostatic hypotension (2) Infection of intrathecal pump (3) Gastroparesis (4) Hypertension (5) Lung cancer (6) Pneumonia (7) Seizure disorder (8) Diabetic peripheral neuropathy (9) Diabetic autonomic neuropathy (10) Chronic pain (11) Intractable nausea and vomiting (12) Diabetes mellitus type 2, uncontrolled (13) Dehydration (14) Hyperglycemia (15) Hyponatremia (16) History of cholecystectomy (17) History of tonsillectomy and adenoidectomy (18) Hx of total knee arthroplasty (19) S/P lobectomy of lung (20) H/O esophagogastroduodenoscopy (21) H/O colonoscopy Family History Diabetes mellitus FATHER MOTHER GRANDFATHER Renal cancer SISTER Family Hx Review: history personally reviewed by me Social / Work History Smoking Status: Former smoker Smokeless Tobacco Use: Yes Drug Use: none Marital Status: Housing Status: lives with significant other Occupation: disabled Allergies Coded Allergies: BEE STING (Verified Allergy, Mild, SWELLING AT SITE, SOB, 04/25/17) Penicillins (Unverified Allergy, Unknown, "SINCE "-Amoxicillin, 04/25) Metoclopramide (Verified Adverse Reaction, Unknown, hallucinations, ) Medications Current Inpatient Medications Medications (Trade) Dose Ordered Sig/Cal Route Start Time Stop Time Status Last Admin Dose Admin Ioversol (Optiray 320) 100 ml UD PRN IV 04/25/17 16:45 04/29/17 16:44 Heparin Sodium (Porcine) (Heparin Sq 5000 Unit/0.5ml) 5,000 unit Q12 SQ 04/26/17 09:00 05/26/17 08:59 04/26/17 08:35 5,000 UNIT Ondansetron HCl (Zofran Inj) 4 mg Q6H PRN IV 04/25/17 19:30 05/25/17 19:29 04/26/17 08:35 4 MG Albuterol (Ventolin Hfa Inhaler) 2 puffs Q6H PRN INH 04/25/17 21:15 05/25/17 21:14 Fentanyl (Duragesic Patch) 100 mcg Q2D@2100 TD 04/25/17 23:45 05/09/17 23:44 04/26/17 00:18 100 MCG Prochlorperazine Maleate (Compazine Tab) 10 mg Q6H PRN PO 04/25/17 21:15 05/25/17 21:14 Famotidine 20 mg/ Syringe 5 ml @ 2.5 mls/min Q12H IV 04/26/17 06:00 05/26/17 05:59 04/26/17 05:59 2.5 MLS/MIN Lansoprazole (Prevacid Solutab) 15 mg BID PO 04/26/17 09:00 05/26/17 08:59 04/26/17 08:26 15 MG Metoprolol Tartrate (Lopressor Iv) 5 mg Q6 IV. 04/26/17 00:00 05/26/17 00:00 04/26/17 06:05 5 MG Insulin Aspart (novoLOG ASPART) [facility] 04/26/17 09:00 05/26/17 08:59 04/26/17 08:34 2 UNITS Hydromorphone HCl (Dilaudid Inj) 1 mg Q4H PRN IV 04/25/17 21:15 05/09/17 21:14 Aprepitant (Emend Cap) 40 mg DAILY@0600 PO 04/26/17 06:00 05/26/17 05:59 04/26/17 05:59 40 MG Insulin Human Regular 250 units/ Sodium Chloride 252.5 ml @ 0 mls/hr Q24H IV 04/26/17 00:00 05/26/17 00:00 04/26/17 05:10 0.8 MLS/HR Glucose (Glucose 40% Gel) UD PRN PO 04/25/17 23:45 05/25/17 23:44 Glucose (Glucose Chew Tab) 1 tabs UD PRN PO 04/25/17 23:45 05/25/17 23:44 Dextrose (Dextrose 50% 50ML Syringe) 50 ml UD PRN IV 04/25/17 23:45 05/25/17 23:44 Glucagon (Glucagon Inj) 1 mg UD PRN SQ 04/25/17 23:45 05/25/17 23:44 Miscellaneous (Fentanyl Patch Remove & Waste) 1 ea Q2D@2059 N/A 04/27/17 20:59 05/27/17 20:58 Miscellaneous Information (Check Fentanyl Patch Placement) 1 ea QS N/A 04/26/17 08:00 05/26/17 07:59 04/26/17 08:37 1 EA Potassium Chloride/Dextrose/ Sod Cl 1,000 ml @ 125 mls/hr Q8H IV 04/26/17 04:45 05/26/17 04:44 04/26/17 04:48 125 MLS/HR Enalaprilat 0.625 mg/Dextrose 25.5 ml @ 100 mls/hr Q6H IV 04/26/17 12:00 05/26/17 11:59 Levetiracetam (Keppra Tab) 1,000 mg BID PO 04/26/17 21:00 05/26/17 20:59 Duloxetine HCl (Cymbalta Cap) 30 mg QAM PO 04/26/17 09:15 05/26/17 09:14 Miscellaneous Information (Consult Glycemic Management Pharmacy) 1 ea UD PRN N/A 04/26/17 09:20 05/26/17 09:19 Levetiracetam (Keppra Tab) 250 mg NOW ONCE PO 04/26/17 09:30 04/26/17 09:31 Review of Systems 10 point review of systems was otherwise negative aside from HPI Physical Exam Height & Weight: Height 5 feet, 8 inches. Weight 69.00 (Kilograms) 152 (Pounds) Last Vital Signs Documentation Date Time Temp Pulse Resp B/P (MAP) Pulse Ox O2 Delivery O2 Flow Rate FiO2 04/26/17 07:59 36.5 80 20 159/90 (113) 99 04/26/17 04:27 Room Air Exam: GENERAL: 51-year-old male who is awake, alert and oriented. Appears well developed. Is in no distress at the present time. He appears thinner than the last time that I saw him. PSYCHIATRIC: Demonstrates normal and clear sensorium. Mood and affect are appropriate. Short-term and long-term memory is intact. HEAD AND NECK: No obvious trauma. Demonstrates full range of motion of the cervical spine. No lymphadenopathy is noted. Trachea midline. No thyromegaly noted. EARS, EYES AND NOSE: Mucous membranes pink and moist. No mucosal lesions noted. Tongue midline. LUNGS: Clear to auscultation in all lung yarbrough. Normal chest excursion. CARDIAC: Normal S1 and S2 without murmurs or gallops. No JVD or HJR noted. ABDOMEN: Soft nontender. He has a well-healing scar from pump explantation in his right lower quadrant. BACK: Inspection of the lumbar spine demonstrates normal curvatures and a well- healed midline surgical incision. There is no fluctuance drainage dehiscence around the surgical incision.. No lesions are noted in the lumbar spine region. No myofascial tenderness or trigger points identifiable in the paraspinous musculature. Neurologically, straight leg raising is negative bilaterally past 90 and no changes noted Achilles stretch. NEUROLOGICAL: Cranial nerves II through XII grossly intact. No gross sensory or motor deficits noted in the upper extremity. Sensation and motor strength in the lower extremity are symmetrical without deficit. No pathologic reflexes are noted in the lower extremities. Gait is not observed Laboratory Laboratory Results (Last CBC): 04/25/17 16:50 Red Blood Count 3.52 L, Mean Corpuscular Volume 81.0, Mean Corpuscular Hemoglobin 30.1, Mean Corpuscular Hemoglobin Concent 37.2 H, Mean Platelet Volume 10.2, Neutrophils (%) (Auto) 73.2, Lymphocytes (%) (Auto) 16.2, Monocytes (%) (Auto) 8.2, Eosinophils (%) (Auto) 1.3, Basophils (%) (Auto) 0.4, Neutrophils # (Auto) 3.94, Lymphocytes # (Auto) 0.87 L, Monocytes # (Auto) 0.44 , Eosinophils # (Auto) 0.07, Basophils # (Auto) 0.02 04/26/17 05:[address] Findings Patient: NIKHIL MARTINS Address1: [address] [place] [address] Rec: [id number] Address2: Acct ID: [id number] [facility] Zip: [facility] [place] [address] Date: 1965 Sex: M Room/Bed: Ref Phy: Bran Burgess M.D. SC: LIANA Att Phy: Report #: [id number] [place] Phy: Bran Burgess M.D. Test: APWO Admit Phy: Solid State Tester: ALIZA Interpreting Phy: Danilo Langley MD Diagnosis: NAUSEA, VOMITING, PAIN, LBP, ELEVATED HEARTRATE Ordering Phy: Rodrigo Kuhn M.D. Service Date: 04/25/17 Admit Date: 04/25/17 MNE: [id number] CONF: DICTATED BY: Danilo Langley M.D.]] CC: Rodrigo Kuhn M.D. Gabinskiy, Boris M.D. Endcc: [~ rep ct add3]] ABDOMEN AND PELVIS CT WITHOUT CONTRAST CT DOSE: 650.88 mGy.cm HISTORY: Nausea. Vomiting. Generalized abdominal pain, hypotensive h/o psoas abscess TECHNIQUE: Multiaxial CT images of the abdomen and pelvis were performed without contrast. A dose lowering technique was utilized adhering to the principles of ALARA. COMPARISON STUDY: Abdomen and pelvis CT 02/03/2017. FINDINGS: Trace left pleural effusion which has improved. Gastric stimulator is noted. No pneumoperitoneum. No pneumatosis. No suspicious lytic or blastic osseous lesions. Cholecystectomy. The unenhanced liver, spleen, adrenal glands, and pancreas are unremarkable. No retroperitoneal lymphadenopathy. There is a punctate stone within the lower pole the left kidney. No ureteral stones. No hydronephrosis. The bladder is mildly distended. Suboptimal evaluation for bowel pathology due to the lack of intravenous and oral contrast. However, there is no definite bowel wall thickening or obstruction. Focal scarring within the right lower quadrant subcutaneous fat. Patient is status post removal of a right lower quadrant lumbar stimulator. No abscess identified within the lumbar soft tissues. The appendix is identified and measure between 6 and 9 mm. However, there is no periappendiceal fat stranding at this time. This is similar in size compared the prior study. Therefore, no evidence for acute appendicitis. IMPRESSION: 1. No bowel wall thickening or obstruction. 2. Interval removal of the spinal stimulator device/leads. No loculated fluid collections remaining within the lumbar region to suggest an abscess. 3. Trace left pleural effusion which has improved. 4. Left-sided nephrolithiasis. No hydronephrosis. 5. Cholecystectomy. 6. Stable appendix. Therefore, no evidence for acute appendicitis. 7. Mildly distended bladder. Past Records Previous Records: personally reviewed by me Assessment 1. Severe diabetic polyneuropathy. 2. Malignancy. Status post chemotherapy. 3. Status post right lower lobe infection. 4. Opiate dependence. 5. Gastroparesis intractable nausea and vomiting. Exacerbated by use of systemic opioids. 6. Status post dural patch procedure for persistent CSF leak. 7. Status post explantation of intrathecal pump right lower quadrant Recommendations 1. Recommend increasing Keppra to 1000 mg by mouth twice a day to further diminish neuropathic type pain as well as initiation of Cymbalta 30 mg by mouth daily. Patient was counseled on the risks, benefits and side effects and agrees to proceed. As were written 2. Recommend he continue at fentanyl 100 g every 48 hours. Would resume oxycodone when able to tolerate by mouth. Until that time may utilize IV hydromorphone on a sparing basis. 3. The patient and I had a talk about realistic pain expectations and he agreed that if he could have a pain level of 5-6 this would be tolerable and he would be at goal. 4. Recommend he follow-up with [facility] for adjustment of his gastric stimulator as an outpatient 5. The patient understands that we have limited additional options to further diminish his pain and there are no plans for interventional pain treatment during this admission. Thank you for this consultation please call with any questions
--- NOTE | 2017-04-26 11:16 | NUR ---
A- Dr Barfield made aware that patient is requesting Picc line due to poor access and multiple iv meds being needed
--- NOTE | 2017-04-26 11:39 | NUR ---
Consult received re: medical hx of gastroparesis as well as weight loss SHACKLER. Please refer to linked assessment Addendum: 04/26/17 at [address] Amended: Links added.
[2017-04-26] MEDS ORDERED: NURSING VERBAL MED ORDER ONE (11:45)
--- NOTE | 2017-04-26 11:50 | Gastrointestinal Consultation ---
Gastrointestinal Consultation Date of Consultation: Apr 26, 2017 Attending Physician: Rodo Hitchcock Consulting Physician: Adalberto Varma Reason for Consultation: Gastroparesis History of Present Illness Patient is a 51 year old male w hx of DM II w severe autonomic and peripheral neuropathies, gastroparesis s/p gastric stimulator in [facility] 1 yr ago, HTN, intrathecal pump infection s/p removal, lung ca s/p SHAWN resection, chemo (none since 08/2016), pneumonia who presented to ED w c/o N/V, weakness. VS stable, labs showed hyponatremia 129, dry BUN/Cr 28/1.99, hyperglycemic BS 400s. He was just admitted at [facility] 04/10-04/13 after transferred from [facility] for further management of his gastroparesis symptoms. CT abd/pelvis there showed possible proctosigmoiditis, but repeat CT scan here showed no inflammation. No signs of appendicitis. No signs of pancreatitis. He also had CT head which showed no signs of metastatic disease. He did have EGD at [facility] previously on 04/02 which showed some gastric ulcer. Hpylori urease screen negative. Tried on Reglan (DC'd due to hallucinations), Zofran, and Compazine. He said didn't have much relief w these meds. Previously did well on Emend IV/PO but cannot afford to pay for the PO form to use at home. Past Medical/Surgical History Medical Problems: (1) Acute kidney injury Status: Acute (2) Altered mental status Status: Acute (3) Anemia Status: Acute (4) Chronic pain Status: Acute (5) Dehydration Status: Acute (6) Dehydration Status: Acute (7) Dehydration Status: Acute (8) Dehydration Status: Acute (9) Dehydration Status: Acute (10) Diabetes mellitus with hyperglycemia Status: Acute (11) Failure of outpatient treatment Status: Acute (12) Hyperglycemia Status: Acute (13) Hypomagnesemia Status: Acute (14) Hypomagnesemia Status: Acute (15) Hyponatremia Status: Acute (16) Intractable vomiting Status: Acute (17) Intractable vomiting Status: Acute (18) Intrathecal pump infection Status: Acute (19) Orthostatic hypotension Status: Acute (20) Pneumonia Status: Acute (21) Post-operative complication Status: Acute (22) Sepsis Status: Acute (23) Vomiting Status: Acute (24) Vomiting Status: Acute Past Medical History: See above Past Surgical History: Cholecystectomy TKA SHAWN lung resection for adenocarcinoma. Family History Diabetes mellitus FATHER MOTHER GRANDFATHER Renal cancer SISTER Social History Smoking Status: Former Smoker Alcohol Use: none Drug Use: none Marital Status: Housing Status: lives with family Occupation Status: disabled Allergies Coded Allergies: BEE STING (Verified Allergy, Mild, SWELLING AT SITE, SOB, 04/25/17) Penicillins (Unverified Allergy, Unknown, "SINCE "-Amoxicillin, 04/25) Metoclopramide (Verified Adverse Reaction, Unknown, hallucinations, ) Current Medications Home Meds and Scripts Medications Dose Route/Sig Max Daily Dose Days Date Category Tylenol (Acetaminophen) 500 Mg Tab 1,000 Mg PO Q6H PRN 04/25/17 Reported Docusate Sodium 100 Mg Cap 200 Mg PO DAILY 04/25/17 Reported Fentanyl 100 Mcg Tdsy 100 Mcg TOP Q2D 04/25/17 Reported Gabapentin 300 Mg Cap 300 Mg PO TID 04/25/17 Reported Hydrochlorothiazide 12.5 Mg Tab 12.5 Mg PO DAILY 04/25/17 Reported Basaglar Kwikpen (Insulin Glargine) 100 Unit/Ml Inj 15 Units SQ HS 04/25/17 Reported Keppra (Levetiracetam) 750 Mg Tab 750 Mg PO BID 04/25/17 Reported Prilosec (Omeprazole) 20 Mg Cap 20 Mg PO DAILY 04/25/17 Reported Oxycodone Hcl 10 Mg Tab 10 Tab PO Q4H PRN 04/25/17 Reported Compazine (Prochlorperazine Maleate) 10 Mg Tab 10 Mg PO Q6H PRN 04/25/17 Reported Norvasc (Amlodipine Besylate) 5 Mg Tab 5 Mg PO DAILY 04/25/17 Reported Humalog (Insulin Lispro (Human)) 100 Unit/Ml Inj 0 SQ UD 04/25/17 Reported Lopressor (Metoprolol Tartrate) 25 Mg Tab 75 Mg PO BID 04/25/17 Reported Vitamin D3 (Cholecalciferol) 50,000 Unit Tab 50,000 Units PO WK 04/25/17 Reported Mirtazapine 15 Mg Tab 15 Mg PO HS 04/25/17 Reported Lisinopril 40 Mg Tab 40 Mg PO DAILY 04/25/17 Reported Kp Ferrous Sulfate (Ferrous Sulfate) 325 Mg Tab 325 Mg PO BID 03/19/17 Reported Ventolin Hfa (Albuterol) 200 Puffs/99616 Mcg Aers 2 Puffs INH Q6H PRN 02/01/17 Reported Ondansetron HCl (Ondansetron) 4 Mg Tab 8 Mg PO Q8 PRN 08/15/16 Reported Epipen (Epinephrine) 0.3 Mg/0.3 Ml Inj 0.3 Mg IM UD PRN 04/16/13 Reported Multivitamins (Multiple Vitamin) 1 Cap Cap 1 Cap PO QAM 04/16/13 Reported Review of Systems Constitutional: + weight loss, No fever, No chills Respiratory: No cough, No shortness of breath Cardiac: No chest pain Abdomen: + pain (midline ), + nausea, + vomiting, + problem reported (BM every 3 days, stool formed intially then loose w dark "coffee grounds") Skin: No rash, No itch Physical Exam Date Time Temp Pulse Resp B/P (MAP) Pulse Ox O2 Delivery O2 Flow Rate FiO2 04/26/17 11:27 87 104/68 (80) 04/26/17 08:00 Room Air 04/26/17 07:59 36.5 80 20 159/90 (113) 99 04/26/17 06:05 84 124/80 04/26/17 04:27 36.8 84 16 149/88 (108) 98 Room Air 04/26/17 04:00 97 Room Air 04/26/17 02:00 82 18 136/78 (97) Room Air 04/26/17 00:20 104 204/113 04/26/17 00:00 97 Room Air 04/25/17 22:45 81 150/118 96 Room Air 04/25/17 21:06 87 18 151/102 98 Room Air 04/25/17 20:00 90 18 166/113 97 Room Air 04/25/17 19:54 Room Air 04/25/17 18:41 94 16 174/112 97 Room Air 04/25/17 17:05 89 16 122/85 95 Room Air 04/25/17 16:17 106 04/25/17 16:05 36.4 85 16 91/62 98 Room Air General Appearance: + mild distress (having n/v) Eyes: normal inspection, PERRL, EOMI Neck: supple, no JVD, trachea midline Respiratory/Chest: normal breath sounds, no respiratory distress, no accessory muscle use Cardiovascular: regular rate, rhythm, no gallop, no murmur Abdomen: normal bowel sounds, + tenderness (periumbilical and towards gastric stimulator area ) Extremities: normal inspection, no pedal edema, no calf tenderness Neurologic/Psych: alert, normal mood/affect, oriented x 3 Skin: normal color, no jaundice, no rash Laboratory Results Last 24 Hours Test 04/25/17 16:50 04/25/17 17:06 04/25/17 18:06 04/25/17 18:14 White Blood Count 5.38 K/uL Red Blood Count 3.52 M/uL Hemoglobin 10.6 g/dL Hematocrit 28.5 % Mean Corpuscular Volume 81.0 fL Mean Corpuscular Hemoglobin 30.1 pg Mean Corpuscular Hemoglobin Concent 37.2 g/dl Platelet Count 211 K/uL Mean Platelet Volume 10.2 fL Neutrophils (%) (Auto) 73.2 % Lymphocytes (%) (Auto) 16.2 % Monocytes (%) (Auto) 8.2 % Eosinophils (%) (Auto) 1.3 % Basophils (%) (Auto) 0.4 % Neutrophils # (Auto) 3.94 K/uL Lymphocytes # (Auto) 0.87 K/uL Monocytes # (Auto) 0.44 K/uL Eosinophils # (Auto) 0.07 K/uL Basophils # (Auto) 0.02 K/uL RDW Standard Deviation 43.1 fL RDW Coefficient of Variation 14.6 % Immature Granulocyte % (Auto) 0.7 % Immature Granulocyte # (Auto) 0.04 K/uL Erythrocyte Sedimentation Rate 25 mm/hr Prothrombin Time 10.9 SECONDS Prothromb Time International Ratio 1.0 Venous Blood pH 7.37 Venous Blood Partial Pressure CO2 56 mmHg Venous Blood Partial Pressure O2 28 mmHg Venous Blood HCO3 31 mmol/L Venous Blood Oxygen Saturation < 60.0 % Venous Blood Base Excess 5.0 mEq/L Sodium Level 129 mmol/L Potassium Level 3.7 mmol/L Chloride Level 91 mmol/L Carbon Dioxide Level 32 mmol/L Anion Gap 6.0 mmol/L Blood Urea Nitrogen 28 mg/dl Creatinine 1.99 mg/dl Est Creatinine Clear Calc Drug Dose 42.5 ml/min Estimated GFR () 43.8 Estimated GFR (Non- 37.8 BUN/Creatinine Ratio 14.3 Random Glucose 438 mg/dl Lactic Acid Level 1.5 mmol/L Calcium Level 8.6 mg/dl Total Bilirubin 0.7 mg/dl Direct Bilirubin 0.2 mg/dl Aspartate Amino Transf (AST/SGOT) 11 U/L Alanine Aminotransferase (ALT/SGPT) 20 U/L Alkaline Phosphatase 100 U/L Troponin I < 0.015 ng/ml C-Reactive Protein < 0.29 mg/dl Total Protein 7.4 gm/dl Albumin 3.2 gm/dl Lipase 33 U/L Beta-Hydroxybutyric Acid 5.24 mg/dL Influenza Type A Antigen Neg for Influ A Influenza Type B Antigen Neg for Influ B Bedside Glucose 379 mg/dl Osmolality 302 mOsm/kg Test 04/25/17 21:09 04/25/17 23:33 04/26/17 01:29 04/26/17 02:26 Bedside Glucose 369 mg/dl 332 mg/dl 249 mg/dl 200 mg/dl Test 04/26/17 03:36 04/26/17 03:55 04/26/17 04:10 04/26/17 04:29 Bedside Glucose 135 mg/dl 121 mg/dl 116 mg/dl 120 mg/dl Test 04/26/17 04:48 04/26/17 05:05 04/26/17 05:48 04/26/17 06:01 Bedside Glucose 123 mg/dl 148 mg/dl 152 mg/dl Hemoglobin 9.8 g/dL Hematocrit 27.4 % Sodium Level 135 mmol/L Potassium Level 4.1 mmol/L Chloride Level 101 mmol/L Carbon Dioxide Level 30 mmol/L Anion Gap 4.0 mmol/L Blood Urea Nitrogen 22 mg/dl Creatinine 1.48 mg/dl Est Creatinine Clear Calc Drug Dose 57.1 ml/min Estimated GFR () 62.6 Estimated GFR (Non- 54.0 BUN/Creatinine Ratio 14.6 Random Glucose 243 mg/dl Estimated Average Glucose 180 mg/dl Hemoglobin A1c 7.9 % Calcium Level 8.0 mg/dl Test 04/26/17 06:59 04/26/17 09:09 04/26/17 10:12 Bedside Glucose 147 mg/dl 242 mg/dl 278 mg/dl Impression Patient is a 51 year old male admitted w n/v, hyponatremia, dehydration. He has hx DM II, gastroparesis w poor control of symptoms despite meds, gastric stimulator. CT abd/pelvis rule out obstructive/acute/inflammatory processes. Plan - IVF resuscitation. - CL diet and advance as tolerated. - Limit narcotics if possible - Check FOBT and stool cx, Cdiff if diarrhea. - Will give Emend IV 115mg x 1 dose as previously he responds well with this. May ask family service caseworker to help assist in Emend PO auth to use in outpt setting. - Changed Famotidine to Protonix 40mg BID given hx of gastric ulcers. - F/U with [facility] for gastric stimulator interrogation once DC'd I performed a history and physical examination of the patient, including specifically on physical exam - abdomen is soft.I have discussed the patient's management with Peggy. Please refer to the TOBACCO DRUMMER's note for the documented findings and plan of care. 51 M with complicated DM and gastroparesis, s/p GNS, currently admitted with uncontrolled DM. GI consulted for gastroparesis. Seems improved today. I think his symptoms are not improving due to the high doses of opioids he takes. Need to evaluate this. He was given Emend already. Follow up in GI clinic.
[2017-04-26] MEDS ORDERED: ENALAPRILAT IV 0.625 MG in DEXTROSE 5% 25ML 25 ML IV SCH (12:00)
--- NOTE | 2017-04-26 12:00 | NUR ---
A- BSG currently 174, insulin gtt calculator instructed to hold gtt for 30 min at this time, Insulin gtt stopped at this time per glycemic consult to discontinue gtt 6 ours after Lantus given or once instructed to hold insulin gtt per calculator
[2017-04-26] MEDS: INSULIN ASPART 100 UNITS/ML 3 ML PEN SC SCH ×3 (12:15→20:57)
--- NOTE | 2017-04-26 16:10 | NUR ---
DIABETES Pt identified for elevated BG > 300mg/dl via BG report. Consult also received for diabetes education. BG 438 on admit. Suspect d/t nausea and vomiting. A1c 7.9% (eAG 180). Current Meds: Lantus 15units (1123) and Novolog 1:15 plus CF:30 with BG goal of 120-160. Insulin drip initiated upon admission d/t severe hyperglycemia; drip discontinued ~noon. BG values in 100-200s this AM. Please see [facility]: Inpatient Teaching Record (note pad icon) for additional information. PRESCRIPTIONS NEEDED: 1. OneTouch Verio test strips to test 4x/day. 2. OneTouch Delica lancets to test 4x/day. Addendum: 04/26/17 at [address] Amended: Links added.
[2017-04-26] MEDS: HYDROmorphone INJ 1 MG/ML SYR IV PRN ×2 (16:43→20:43)
--- NOTE | 2017-04-26 17:57 | NUR ---
A- Alert and oriented. SR on monitor. Medicated with zofran and dilaudid , pt stated he had an emesis x 3 in bathroom, not visualized by staff, and c/o abd pain. Picc line intact to left arm, IVF infusing. BSG 225, covered with SSI. See PCS for full assessment
[2017-04-26] MEDS: SODIUM CHLORIDE 0.9% 1000ML 1,000 ML IV SCH (20:36)
[2017-04-26] MEDS: METOPROLOL TARTRATE 25 MG TAB PO SCH (20:51)
[2017-04-26] MEDS: LEVETIRACETAM 500 MG TAB PO SCH (20:52)
[2017-04-26] MEDS: PANTOprazole SOD 40 MG TAB PO SCH (20:52)
--- NOTE | 2017-04-26 21:00 | NUR ---
A: BSG 260. IV fluids were just changed to NSS at 100 from an IV with Dextrose. Insulin given per order. Telemetry discontinued at 1900. Is now a medical patient.
[2017-04-26] MEDS: PROCHLORPERAZINE MALEATE 10 MG TAB PO PRN (21:06)
--- NOTE | 2017-04-26 22:18 | NUR ---
ID notes: Alert and oriented. Independent with ADLS. On IV fluids. Insulin drip discontinued today. Did have dextrose in his IV until this evening. States nausea/vomiting. Relief with Zofran and Compazine. Transferred from telemetry to medical status. Discharge date uncertain at this time.
[2017-04-27] VITALS (7 sets, daily range): BP systolic 118–174; BP diastolic 73–97; PULSE 73–91; TEMP 36.5–36.7; O2SAT 97–99
[2017-04-27] MEDS: HYDROmorphone INJ 1 MG/ML SYR IV PRN ×5 (00:44→21:07)
[2017-04-27] MEDS: ONDANSETRON INJ 2 MG/ML 2 ML VIAL IV PRN ×3 (00:49→16:20)
[2017-04-27] MEDS: SODIUM CHLORIDE 0.9% 1000ML 1,000 ML IV SCH ×2 (06:05→16:19)
[2017-04-27 06:17] LABS: HEMATOCRIT 25.5 % (42-52); HEMOGLOBIN 9.2 g/dL (14.0-18.0)
[2017-04-27 06:59] LABS: CALCIUM 8.2 mg/dl (8.5-10.1); CREATININE 1.3 mg/dl (0.60-1.40); POTASSIUM 3.7 mmol/L (3.5-5.1)
[2017-04-27] MEDS: LEVETIRACETAM 500 MG TAB PO SCH ×2 (07:47→21:13)
[2017-04-27] MEDS: METOPROLOL TARTRATE 25 MG TAB PO SCH ×2 (07:47→21:12)
[2017-04-27] MEDS: DULOXETINE (CYMBALTA) 30 MG CAP PO SCH (07:47)
[2017-04-27] MEDS: PANTOprazole SOD 40 MG TAB PO SCH ×2 (07:48→21:10)
[2017-04-27] MEDS: AMLODIPINE BESYLATE 5 MG TAB PO SCH (07:48)
[2017-04-27] MEDS: INSULIN GLARGINE SOLOSTAR 100 UNITS/ML 3 ML PEN SC SCH (08:05)
[2017-04-27] MEDS: INSULIN ASPART 100 UNITS/ML 3 ML PEN SC SCH ×4 (08:07→21:05)
[2017-04-27] MEDS: CHECK FENTANYL PATCH PLACEMENT SCH ×2 (08:14→16:26)
[2017-04-27] MEDS: HEPARIN SOD 5000 UNIT/0.5 ML CARP SQ SCH ×2 (08:19→21:06)
--- NOTE | 2017-04-27 09:24 | Pharmacy Progress Note ---
Glycemic Control Progress Note Date of Service Apr 27, 2017. Scope Glycemic Pharmacist consulted for glycemic control to write orders per [facility] inpatient glycemic control protocol. Objective Accuchecks BSG (last 24hrs): Test 04/26/17 10:12 04/26/17 11:02 04/26/17 11:58 04/26/17 16:58 Bedside Glucose 278 mg/dl (70-99) 233 mg/dl (70-99) 174 mg/dl (70-99) 225 mg/dl (70-99) Test 04/26/17 20:24 04/27/17 05:56 04/27/17 07:54 Bedside Glucose 260 mg/dl (70-99) 179 mg/dl (70-99) Random Glucose 145 mg/dl (70-99) HbA1c: Test 04/26/17 05:48 Hemoglobin A1c 7.9 % (4.5-5.6) H Recent Pertinent Medications The patient is currently receiving: * Basal insulin: Lantus 15 units SQ x 1 given yesterday * Correctional Insulin: Novolog Correction per scale ACHS Goal Range: Low 120 mg/dL - High 160 mg/dL Correction Factor: 30 mg/dL/unit * Prandial insulin: Per carb ratio of 1 unit per 15 grams CHO consumed * Oral Agents: None currently Outpatient Anti-Diabetic Meds * Lantus 15 units SQ qHS * Humalog SSI * HbA1c: 7.9% (04/26/17) Assessment & Plan ASSESSMENT: 04/27/17 * Patient was transitioned off the insulin drip yesterday to a SQ basal/bolus regimen * Since transition BSGs have ranged 145-260mg/dL * Fasting BSG 145-179 this AM with 15 units Lantus on board - this is reported to be his home dose of Lantus. Given out-pt A1c and his ability to tolerate higher doses of basal on prior admissions, will titrate the basal dose upwards today * Post-prandial hyperglycemia noted yesterday, will adjust CR as well and follow BSG pattern today PLAN FOR INPATIENT GLYCEMIC CONTROL: * Increasing Lantus to 18 units SQ Q AM * Continuing correction factor of 30 mg/dl/unit * Changing carb ratio to 1 unit per 10 grams CHO consumed * Continuing goal range of Low 120 mg/dL - High 160 mg/dL * Please note that the plan above was derived based on current level of insulin resistance and hospital stress. These recommendations are appropriate for inpatient admission only. Plan of care upon discharge will need to be reassessed to avoid potential outpatient hypo/hyperglycemia. Thank you.
[2017-04-27] MEDS: PROCHLORPERAZINE MALEATE 10 MG TAB PO PRN ×2 (10:37→21:07)
--- NOTE | 2017-04-27 13:38 | Progress Note ---
Subjective Date of Service: Apr 27, 2017. Subjective Pt evaluation today including: conversation w/ patient, physical exam, lab review, review of studies, conversation w/ pre sales technical consultant, review of inpatient medication list Saw/examined the patient in room 421 He's doing okay, though nausea is still present; had an episode of vomiting earlier pain is still present, the increase in Keppra did not help him yesterday Problem List Medical Problems: (1) Acute kidney injury Status: Acute (2) Altered mental status Status: Acute (3) Anemia Status: Acute (4) Chronic pain Status: Acute (5) Dehydration Status: Acute (6) Dehydration Status: Acute (7) Dehydration Status: Acute (8) Dehydration Status: Acute (9) Dehydration Status: Acute (10) Diabetes mellitus with hyperglycemia Status: Acute (11) Failure of outpatient treatment Status: Acute (12) Hyperglycemia Status: Acute (13) Hypomagnesemia Status: Acute (14) Hypomagnesemia Status: Acute (15) Hyponatremia Status: Acute (16) Intractable vomiting Status: Acute (17) Intractable vomiting Status: Acute (18) Intrathecal pump infection Status: Acute (19) Orthostatic hypotension Status: Acute (20) Pneumonia Status: Acute (21) Post-operative complication Status: Acute (22) Sepsis Status: Acute (23) Vomiting Status: Acute (24) Vomiting Status: Acute Review of Systems Respiratory: No cough, No sputum, No shortness of breath Cardiac: No chest pain Abdomen: + nausea, + vomiting, No pain, No diarrhea, No constipation, No GI bleeding Musculoskeletal: + joint pain, + muscle pain Medications Current Inpatient Medications Medications (Trade) Dose Ordered Sig/Cal Route Start Time Stop Time Status Last Admin Dose Admin Ioversol (Optiray 320) 100 ml UD PRN IV 04/25/17 16:45 04/29/17 16:44 Heparin Sodium (Porcine) (Heparin Sq 5000 Unit/0.5ml) 5,000 unit Q12 SQ 04/26/17 09:00 05/26/17 08:59 04/27/17 08:19 5,000 UNIT Ondansetron HCl (Zofran Inj) 4 mg Q6H PRN IV 04/25/17 19:30 05/25/17 19:29 04/27/17 08:08 4 MG Albuterol (Ventolin Hfa Inhaler) 2 puffs Q6H PRN INH 04/25/17 21:15 05/25/17 21:14 Fentanyl (Duragesic Patch) 100 mcg Q2D@2100 TD 04/25/17 23:45 05/09/17 23:44 04/26/17 00:18 100 MCG Prochlorperazine Maleate (Compazine Tab) 10 mg Q6H PRN PO 04/25/17 21:15 05/25/17 21:14 04/27/17 10:37 10 MG Hydromorphone HCl (Dilaudid Inj) 1 mg Q4H PRN IV 04/25/17 21:15 05/09/17 21:14 04/27/17 10:37 1 MG Glucose (Glucose 40% Gel) UD PRN PO 04/25/17 23:45 05/25/17 23:44 Glucose (Glucose Chew Tab) 1 tabs UD PRN PO 04/25/17 23:45 05/25/17 23:44 Dextrose (Dextrose 50% 50ML Syringe) 50 ml UD PRN IV 04/25/17 23:45 05/25/17 23:44 Glucagon (Glucagon Inj) 1 mg UD PRN SQ 04/25/17 23:45 05/25/17 23:44 Miscellaneous (Fentanyl Patch Remove & Waste) 1 ea Q2D@2059 N/A 04/27/17 20:59 05/27/17 20:58 Miscellaneous Information (Check Fentanyl Patch Placement) 1 ea QS N/A 04/26/17 08:00 05/26/17 07:59 04/27/17 08:14 1 EA Levetiracetam (Keppra Tab) 1,000 mg BID PO 04/26/17 21:00 05/26/17 20:59 04/27/17 07:47 1,000 MG Duloxetine HCl (Cymbalta Cap) 30 mg QAM PO 04/26/17 09:15 05/26/17 09:14 04/27/17 07:47 30 MG Miscellaneous Information (Consult Glycemic Management Pharmacy) 1 ea UD PRN N/A 04/26/17 09:20 05/26/17 09:19 Pantoprazole Sodium (Protonix Tab) 40 mg BID PO 04/26/17 21:00 05/26/17 20:59 04/27/17 07:48 40 MG Insulin Aspart (novoLOG ASPART) SLIDING SCALE ACHS SC 04/26/17 11:00 05/26/17 10:59 04/27/17 08:07 4 UNITS Heparin Sodium (Porcine) (Heparin 10 Unit/ ml 5 ml Flush) 5 ml PRN PRN FLUSH 04/26/17 14:00 05/26/17 13:59 Amlodipine Besylate (Norvasc Tab) 5 mg DAILY PO 04/27/17 08:00 05/27/17 08:59 04/27/17 07:48 5 MG Metoprolol Tartrate (Lopressor Tab) 75 mg BID PO 04/26/17 21:00 05/26/17 20:59 04/27/17 07:47 75 MG Sodium Chloride 1,000 ml @ 100 mls/hr Q10H IV 04/26/17 20:00 05/26/17 19:59 04/27/17 06:05 100 MLS/HR Insulin Glargine (Lantus Solostar Pen) 18 units QAM SC 04/27/17 08:00 05/27/17 07:59 04/27/17 08:05 18 UNITS Objective Vital Signs Date Time Temp Pulse Resp B/P (MAP) Pulse Ox O2 Delivery O2 Flow Rate FiO2 04/27/17 07:34 36.7 91 16 144/83 (103) 99 Room Air 04/27/17 00:24 36.5 73 18 129/80 (96) 99 Room Air 04/27/17 00:05 97 Room Air 04/26/17 20:47 92 117/74 (88) 04/26/17 20:00 Room Air 04/26/17 16:00 Room Air 04/26/17 15:48 36.5 93 18 140/89 (106) 97 Room Air Physical Exam General Appearance: + mild distress Respiratory/Chest: no respiratory distress, no accessory muscle use Cardiovascular: regular rate, rhythm Abdomen: non tender, soft, + abnormal bowel sounds (hyperactive bowel sounds) Extremities: + pertinent finding (decreased and painful ROM of back) Laboratory Results Last 24 Hours Test 04/26/17 16:58 04/26/17 20:24 04/27/17 05:56 04/27/17 07:54 Bedside Glucose 225 mg/dl 260 mg/dl 179 mg/dl Hemoglobin 9.2 g/dL Hematocrit 25.5 % Sodium Level 135 mmol/L Potassium Level 3.7 mmol/L Chloride Level 102 mmol/L Carbon Dioxide Level 27 mmol/L Anion Gap 6.0 mmol/L Blood Urea Nitrogen 17 mg/dl Creatinine 1.30 mg/dl Est Creatinine Clear Calc Drug Dose 65.0 ml/min Estimated GFR () 73.2 Estimated GFR (Non- 63.2 BUN/Creatinine Ratio 12.8 Random Glucose 145 mg/dl Calcium Level 8.2 mg/dl Test 04/27/17 11:27 Bedside Glucose 99 mg/dl Assessment and Plan This is a 51 year old male with PMH of uncontrolled, insulin-dependent DM2 with multiple complications including severe gastroparesis s/p gastric stimulator insertion, severe peripheral neuropathy on chronic pain medications - presents with worsening nausea/vomiting/dehydration Uncontrolled DM2 04/27 much better controlled his BSGs are doing better off of insulin drip - back on subq insulin appreciate pharmacy glycemic control consult 04/26 patient initially started on insulin ggt due to BSGs >400 BSGs are now closer to baseline will consult pharmacy for transition from insulin drip to SQ, he has labile BSGs diabetic education he may need a new glucometer as his home one is not reading proper blood sugars Severe Gastroparesis 04/27 continue IV Emend 04/26 symptoms began with nausea/vomiting he has a gastric pacemaker - will need adjustment in settings at [facility] plan for now is to do Emend GI consult for further input Acute Kidney Injury superimposed on CKD stage 3 creatinine at baseline is close to 1.3-1.4 presented with creat at 1.9 due to dehydration improved with IVFs continue IVFs and monitor creat; avoid nephrotoxic agents if able Hyponatremia secondary to dehydration and elevated BSGs Na improved with IVFs Severe Diabetic Neuropathy follows with pain management at once had an intrathecal pump, had to be removed due to infection was then placed on fentanyl patch IV Dilaudid PRN ordered while inpatient appreciate pain management input - Cymbalta restarted; Keppra dose increased NUTRITION / WEIGHT LOSS Weight fluctuates, partly due to volume status. Patient states that he has lost about 40 lbs over past several months. Review of wts here: 85 - 91 kg in September, 98-100 kg in February 2017, 81 kg in March, 69 kg now. Suspect malnutrition / wt loss secondary to gastroparesis and poor PO intake. History of lung Ca, but no apparent recurrence. Consult Nutrition. HYPERTENSION BP low upon arrival to ED- probably due to volume depletion. BP elevated after receiving IV fluids. Unable to take oral meds due to N/V. Hold HCTZ because of dehydration. Hold amlodipine until N&V improve. IV metoprolol until able to take oral metoprolol tartrate. IV enalapril until able to take oral lisinopril. Follow and titrate therapy. LUNG CANCER Adenocarcinoma of lung, s/p resection and chemo. No apparent recurrence per CT chest. Has f/u appt with Medical Oncology. SEIZURE DISORDER Continue levetiracetam. ULCERATION RIGHT GREAT TOE Has ulcer dorsum of right great toe which patient attributes to crawling on bathroom floor when he has nausea and vomiting. Consult Wound Care Nursing. GENERAL DEBILITATION Multifactorial. PT / OT. VTE PROPHYLAXIS Moderate-high risk. SQ heparin. Ambulate as able. DISPOSITION Admit to Telemetry Unit. Discharge disposition to be determined. May need skilled care or inpt rehab. Medical follow-up with Dr. Burgess.
[2017-04-27] MEDS: ALBUTEROL HFA 8 GM INHALER INH PRN (18:39)
[2017-04-27] MEDS: FENTANYL PATCH REMOVE & WASTE SCH (21:20)
[2017-04-27] MEDS: FENTANYL 100 MCG/HR TDSY TD SCH (21:21)
[2017-04-28] VITALS (8 sets, daily range): BP systolic 97–183; BP diastolic 60–104; PULSE 70–84; TEMP 36.5–36.8; O2SAT 99–100
[2017-04-28] MEDS: CHECK FENTANYL PATCH PLACEMENT SCH ×4 (00:15→23:57)
[2017-04-28] MEDS: SODIUM CHLORIDE 0.9% 1000ML 1,000 ML IV SCH ×3 (01:29→22:20)
[2017-04-28] MEDS: HYDROmorphone INJ 1 MG/ML SYR IV PRN ×3 (02:19→13:33)
--- NOTE | 2017-04-28 04:44 | NUR ---
ID: Pt is A&OX4. IND with ambulation in the halls and room. VSS. Lung sounds are clear and diminished on R/A. Reports generalized pain, PRN Dilaudid given. NSS infusing at 100ml/hr. D/C uncertain at this time. Hourly rounding maintained for safety. Will continue to monitor.
[2017-04-28 06:10] LABS: HEMOGLOBIN 8.6 g/dL (14.0-18.0); MEAN CELL VOLUME 81.9 fL (80-100); MEAN CORPUSCULAR HEMOGLOBIN 29.4 pg (25-34); MEAN CORPUSCULAR HGB CONC 35.8 g/dl (32-36); MEAN PLATELET VOLUME 9.9 fL (7.4-10.4); PLATELET COUNT 177 K/uL (130-400); RED CELL DISTRIBUTION WIDTH CV 15.1 % (11.5-14.5); RED CELL DISTRIBUTION WIDTH SD 45.2 fL (36.4-46.3); WHITE BLOOD COUNT 3.31 K/uL (4.8-10.8)
[2017-04-28 06:56] LABS: CALCIUM 7.5 mg/dl (8.5-10.1); CREATININE 1.27 mg/dl (0.60-1.40); POTASSIUM 3.4 mmol/L (3.5-5.1)
[2017-04-28] MEDS: AMLODIPINE BESYLATE 5 MG TAB PO SCH (08:06)
[2017-04-28] MEDS: DULOXETINE (CYMBALTA) 30 MG CAP PO SCH (08:06)
[2017-04-28] MEDS: PANTOprazole SOD 40 MG TAB PO SCH ×2 (08:06→21:01)
[2017-04-28] MEDS: METOPROLOL TARTRATE 25 MG TAB PO SCH ×2 (08:06→21:10)
[2017-04-28] MEDS: LEVETIRACETAM 500 MG TAB PO SCH ×2 (08:06→21:00)
--- NOTE | 2017-04-28 08:27 | NUR ---
RD identified pt at nutrition risk d/t NPO/CL > 3 days, entered process plan. Recommend advancing diet as medically able. Will continue to follow as previously determined.
[2017-04-28] MEDS: INSULIN GLARGINE SOLOSTAR 100 UNITS/ML 3 ML PEN SC SCH (08:31)
[2017-04-28] MEDS: INSULIN ASPART 100 UNITS/ML 3 ML PEN SC SCH ×4 (08:31→21:00)
[2017-04-28] MEDS: HEPARIN SOD 5000 UNIT/0.5 ML CARP SQ SCH ×2 (08:33→21:07)
[2017-04-28] MEDS ORDERED: FOSAPREPITANT DIMEGLUMINE INJ 115 MG in SODIUM CHLORIDE 0.9% 100ML 111.2 ML IV ONE (09:30)
[2017-04-28] MEDS: ONDANSETRON INJ 2 MG/ML 2 ML VIAL IV PRN (09:50)
--- NOTE | 2017-04-28 10:07 | Progress Note ---
Subjective Date of Service: Apr 28, 2017. Subjective Pt evaluation today including: conversation w/ patient, physical exam, lab review, review of studies, review of inpatient medication list Saw/examined the patient in room 421 He's doing a little bit better States he needs another dose of Emend wants to advance his diet pain is still present, requiring IV dilaudid Problem List Medical Problems: (1) Acute kidney injury Status: Acute (2) Altered mental status Status: Acute (3) Anemia Status: Acute (4) Chronic pain Status: Acute (5) Dehydration Status: Acute (6) Dehydration Status: Acute (7) Dehydration Status: Acute (8) Dehydration Status: Acute (9) Dehydration Status: Acute (10) Diabetes mellitus with hyperglycemia Status: Acute (11) Failure of outpatient treatment Status: Acute (12) Hyperglycemia Status: Acute (13) Hypomagnesemia Status: Acute (14) Hypomagnesemia Status: Acute (15) Hyponatremia Status: Acute (16) Intractable vomiting Status: Acute (17) Intractable vomiting Status: Acute (18) Intrathecal pump infection Status: Acute (19) Orthostatic hypotension Status: Acute (20) Pneumonia Status: Acute (21) Post-operative complication Status: Acute (22) Sepsis Status: Acute (23) Vomiting Status: Acute (24) Vomiting Status: Acute Review of Systems Abdomen: + nausea, + vomiting, No pain, No diarrhea, No constipation Musculoskeletal: + joint pain Medications Current Inpatient Medications Medications (Trade) Dose Ordered Sig/Cal Route Start Time Stop Time Status Last Admin Dose Admin Ioversol (Optiray 320) 100 ml UD PRN IV 04/25/17 16:45 04/29/17 16:44 Heparin Sodium (Porcine) (Heparin Sq 5000 Unit/0.5ml) 5,000 unit Q12 SQ 04/26/17 09:00 05/26/17 08:59 04/28/17 08:33 5,000 UNIT Ondansetron HCl (Zofran Inj) 4 mg Q6H PRN IV 04/25/17 19:30 05/25/17 19:29 04/28/17 09:50 4 MG Albuterol (Ventolin Hfa Inhaler) 2 puffs Q6H PRN INH 04/25/17 21:15 05/25/17 21:14 04/27/17 18:39 2 PUFFS Fentanyl (Duragesic Patch) 100 mcg Q2D@2100 TD 04/25/17 23:45 05/09/17 23:44 04/27/17 21:21 100 MCG Prochlorperazine Maleate (Compazine Tab) 10 mg Q6H PRN PO 04/25/17 21:15 05/25/17 21:14 04/27/17 21:07 10 MG Hydromorphone HCl (Dilaudid Inj) 1 mg Q4H PRN IV 04/25/17 21:15 05/09/17 21:14 04/28/17 06:34 1 MG Glucose (Glucose 40% Gel) UD PRN PO 04/25/17 23:45 05/25/17 23:44 Glucose (Glucose Chew Tab) 1 tabs UD PRN PO 04/25/17 23:45 05/25/17 23:44 Dextrose (Dextrose 50% 50ML Syringe) 50 ml UD PRN IV 04/25/17 23:45 05/25/17 23:44 Glucagon (Glucagon Inj) 1 mg UD PRN SQ 04/25/17 23:45 05/25/17 23:44 Miscellaneous (Fentanyl Patch Remove & Waste) 1 ea Q2D@2059 N/A 04/27/17 20:59 05/27/17 20:58 04/27/17 21:20 1 EA Miscellaneous Information (Check Fentanyl Patch Placement) 1 ea QS N/A 04/26/17 08:00 05/26/17 07:59 04/28/17 08:05 1 EA Levetiracetam (Keppra Tab) 1,000 mg BID PO 04/26/17 21:00 05/26/17 20:59 04/28/17 08:06 1,000 MG Duloxetine HCl (Cymbalta Cap) 30 mg QAM PO 04/26/17 09:15 05/26/17 09:14 04/28/17 08:06 30 MG Miscellaneous Information (Consult Glycemic Management Pharmacy) 1 ea UD PRN N/A 04/26/17 09:20 05/26/17 09:19 Pantoprazole Sodium (Protonix Tab) 40 mg BID PO 04/26/17 21:00 05/26/17 20:59 04/28/17 08:06 40 MG Insulin Aspart (novoLOG ASPART) SLIDING SCALE ACHS SC 04/26/17 11:00 05/26/17 10:59 04/28/17 08:31 3 UNITS Heparin Sodium (Porcine) (Heparin 10 Unit/ ml 5 ml Flush) 5 ml PRN PRN FLUSH 04/26/17 14:00 05/26/17 13:59 Amlodipine Besylate (Norvasc Tab) 5 mg DAILY PO 04/27/17 08:00 05/27/17 08:59 04/28/17 08:06 5 MG Metoprolol Tartrate (Lopressor Tab) 75 mg BID PO 04/26/17 21:00 05/26/17 20:59 04/28/17 08:06 75 MG Sodium Chloride 1,000 ml @ 100 mls/hr Q10H IV 04/26/17 20:00 05/26/17 19:59 04/28/17 01:29 100 MLS/HR Insulin Glargine (Lantus Solostar Pen) 18 units QAM SC 04/27/17 08:00 05/27/17 07:59 04/28/17 08:31 18 UNITS Objective Vital Signs Date Time Temp Pulse Resp B/P (MAP) Pulse Ox O2 Delivery O2 Flow Rate FiO2 04/28/17 08:00 99 Room Air 04/28/17 07:49 36.7 75 18 171/91 (117) 99 Room Air 04/28/17 01:45 36.5 74 20 97/60 (72) 99 Room Air 04/27/17 23:08 Room Air 04/27/17 21:11 84 174/97 (122) 04/27/17 16:15 99 Room Air 04/27/17 15:09 36.6 73 18 118/73 (88) 99 Room Air Physical Exam General Appearance: no apparent distress Respiratory/Chest: lungs clear, normal breath sounds, no respiratory distress, no accessory muscle use Cardiovascular: regular rate, rhythm, no edema, no murmur Abdomen: normal bowel sounds, non tender, soft Extremities: normal inspection, no pedal edema Neurologic/Psychiatric: no motor/sensory deficits, alert, normal mood/affect Laboratory Results Last 24 Hours Test 04/27/17 11:27 04/27/17 16:22 04/27/17 20:26 04/28/17 01:25 Bedside Glucose 99 mg/dl 94 mg/dl 166 mg/dl Stool Occult Blood NEGATIVE Test 04/28/17 05:24 04/28/17 07:49 White Blood Count 3.31 K/uL Red Blood Count 2.93 M/uL Hemoglobin 8.6 g/dL Hematocrit 24.0 % Mean Corpuscular Volume 81.9 fL Mean Corpuscular Hemoglobin 29.4 pg Mean Corpuscular Hemoglobin Concent 35.8 g/dl RDW Standard Deviation 45.2 fL RDW Coefficient of Variation 15.1 % Platelet Count 177 K/uL Mean Platelet Volume 9.9 fL Sodium Level 136 mmol/L Potassium Level 3.4 mmol/L Chloride Level 103 mmol/L Carbon Dioxide Level 29 mmol/L Anion Gap 4.0 mmol/L Blood Urea Nitrogen 11 mg/dl Creatinine 1.27 mg/dl Est Creatinine Clear Calc Drug Dose 66.6 ml/min Estimated GFR () 75.3 Estimated GFR (Non- 65.0 BUN/Creatinine Ratio 8.5 Random Glucose 199 mg/dl Calcium Level 7.5 mg/dl Bedside Glucose 196 mg/dl Assessment and Plan This is a 51 year old male with PMH of uncontrolled, insulin-dependent DM2 with multiple complications including severe gastroparesis s/p gastric stimulator insertion, severe peripheral neuropathy on chronic pain medications - presents with worsening nausea/vomiting/dehydration Uncontrolled DM2 04/28 BSGs better controlled will advance diet 04/27 much better controlled his BSGs are doing better off of insulin drip - back on subq insulin appreciate pharmacy glycemic control consult 04/26 patient initially started on insulin ggt due to BSGs >400 BSGs are now closer to baseline will consult pharmacy for transition from insulin drip to SQ, he has labile BSGs diabetic education he may need a new glucometer as his home one is not reading proper blood sugars Severe Gastroparesis 04/28 one more dose of Emend 04/27 continue IV Emend 04/26 symptoms began with nausea/vomiting he has a gastric pacemaker - will need adjustment in settings at [facility] plan for now is to do Emend GI consult for further input Acute Kidney Injury superimposed on CKD stage 3 creatinine at baseline is close to 1.3-1.4 presented with creat at 1.9 due to dehydration improved with IVFs continue IVFs and monitor creat; avoid nephrotoxic agents if able Hyponatremia secondary to dehydration and elevated BSGs Na improved with IVFs Severe Diabetic Neuropathy follows with pain management at once had an intrathecal pump, had to be removed due to infection was then placed on fentanyl patch IV Dilaudid PRN ordered while inpatient appreciate pain management input - Cymbalta restarted; Keppra dose increased NUTRITION / WEIGHT LOSS Weight fluctuates, partly due to volume status. Patient states that he has lost about 40 lbs over past several months. Review of wts here: 85 - 91 kg in September, 98-100 kg in February 2017, 81 kg in March, 69 kg now. Suspect malnutrition / wt loss secondary to gastroparesis and poor PO intake. History of lung Ca, but no apparent recurrence. Consult Nutrition. HYPERTENSION BP low upon arrival to ED- probably due to volume depletion. BP elevated after receiving IV fluids. Unable to take oral meds due to N/V. Hold HCTZ because of dehydration. Hold amlodipine until N&V improve. IV metoprolol until able to take oral metoprolol tartrate. IV enalapril until able to take oral lisinopril. Follow and titrate therapy. LUNG CANCER Adenocarcinoma of lung, s/p resection and chemo. No apparent recurrence per CT chest. Has f/u appt with Medical Oncology. SEIZURE DISORDER Continue levetiracetam. ULCERATION RIGHT GREAT TOE Has ulcer dorsum of right great toe which patient attributes to crawling on bathroom floor when he has nausea and vomiting. Consult Wound Care Nursing. GENERAL DEBILITATION Multifactorial. PT / OT. VTE PROPHYLAXIS Moderate-high risk. SQ heparin. Ambulate as able. DISPOSITION Admit to Telemetry Unit. Discharge disposition to be determined. May need skilled care or inpt rehab. Medical follow-up with Dr. Burgess.
--- NOTE | 2017-04-28 10:27 | Pharmacy Progress Note ---
Glycemic Control Progress Note Date of Service Apr 28, 2017. Scope Glycemic Pharmacist consulted for glycemic control to write orders per [facility] inpatient glycemic control protocol. Objective Accuchecks BSG (last 24hrs): Test 04/27/17 11:27 04/27/17 16:22 04/27/17 20:26 04/28/17 05:24 Bedside Glucose 99 mg/dl (70-99) 94 mg/dl (70-99) 166 mg/dl (70-99) Random Glucose 199 mg/dl (70-99) Test 04/28/17 07:49 Bedside Glucose 196 mg/dl (70-99) HbA1c: Test 04/26/17 05:48 Hemoglobin A1c 7.9 % (4.5-5.6) H Recent Pertinent Medications The patient is currently receiving: * Basal insulin: Lantus 18 units SQ q AM * Correctional Insulin: Novolog Correction per scale ACHS Goal Range: Low 120 mg/dL - High 160 mg/dL Correction Factor: 30 mg/dL/unit * Prandial insulin: Per carb ratio of 1 unit per 10 grams CHO consumed * Oral Agents: None currently Outpatient Anti-Diabetic Meds * Lantus 15 units SQ qHS * Humalog SSI * HbA1c: 7.9% (04/26/17) Assessment & Plan ASSESSMENT: 04/27/17 * Patient was transitioned off the insulin drip yesterday to a SQ basal/bolus regimen * Since transition BSGs have ranged 145-260mg/dL * Fasting BSG 145-179 this AM with 15 units Lantus on board - this is reported to be his home dose of Lantus. Given out-pt A1c and his ability to tolerate higher doses of basal on prior admissions, will titrate the basal dose upwards today * Post-prandial hyperglycemia noted yesterday, will adjust CR as well and follow BSG pattern today 04/28/17 * Nearly all BSGs at goal yesterday with the exception of fasting hyperglycemia ; BSGs ranged 99-196 over the last 24 hrs * Fasting hyperglycemia again seen today, FBS 196 w/ 18 units of Lantus on board. Prior hospitalizations reviewed, it appears Lantus may no provide 24 hrs coverage in this patient and his FBSs are better when Lantus is dosed in the PM (as he does at home). Will begin to titrate back to HS administration. * Post-prandial BSGs well controlled yesterday - continue same CF/CR PLAN FOR INPATIENT GLYCEMIC CONTROL: * Begin to titrate Lantus to HS dosing; received 18 units this AM, give 6 units this PM and 3 units in the AM tomorrow, then begin 18 units Q HS tomorrow evening * Continuing correction factor of 30 mg/dl/unit * Continuing carb ratio of 1 unit per 10 grams CHO consumed * Continuing goal range of Low 120 mg/dL - High 160 mg/dL * Please note that the plan above was derived based on current level of insulin resistance and hospital stress. These recommendations are appropriate for inpatient admission only. Plan of care upon discharge will need to be reassessed to avoid potential outpatient hypo/hyperglycemia. Thank you.
[2017-04-28] MEDS: ALBUTEROL HFA 8 GM INHALER INH PRN (15:26)
[2017-04-28] MEDS ORDERED: NURSING VERBAL MED ORDER ONE (16:15)
[2017-04-28] MEDS ORDERED: HYDROmorphone HCL 2 MG TAB PO PRN (16:30)
--- NOTE | 2017-04-28 17:17 | NUR ---
A: Pt stated "pain is the same as it is at home". Stated his home pain management medication is 4mg PO diluadid Q4h prn. After review of med rec pt is prescribed oxycodone 10mg PO Q4h prn. After review of chart, pain management DCed PO dilaudid on 04/04/2017. Dr. Barfield notified and pain medication changed to PO oxycodone 10mg Q4h prn. Pt requested to advance diet from clears to regular this am. Advance as tolerated order placed. Pt received full liquids for lunch and stated "I couldn't keep down any of my lunch". Emesis not witnessed by nursing. Pt stated nausea is the same as it is at home. Diabetic diet ordered for patient for dinner. Pt ordered mashed potatoes and roast beef. Tolerating at this time. Pt has ambulated in [place] multiple times.
[2017-04-28] MEDS: OXYCODONE HCL IR 5 MG TAB (IMMEDIATE RELEASE) PO PRN (17:46)
[2017-04-28] MEDS: PROCHLORPERAZINE MALEATE 10 MG TAB PO PRN (17:47)
[2017-04-28] MEDS ORDERED: INSULIN GLARGINE SOLOSTAR 100 UNITS/ML 3 ML PEN SC SCH (21:00)
[2017-04-29] VITALS (8 sets, daily range): BP systolic 102–156; BP diastolic 65–103; PULSE 69–81; TEMP 36.4–36.8; O2SAT 99–100
[2017-04-29] MEDS: OXYCODONE HCL IR 5 MG TAB (IMMEDIATE RELEASE) PO PRN ×3 (01:26→15:23)
--- NOTE | 2017-04-29 04:48 | NUR ---
ID: Pt is A&OX4. IND with ambulation in the halls and room. VSS. Lung sounds are clear on R/A. Reports generalized pain, PRN's given. NSS infusing at 100ml/hr. Diet advanced to DM-2 diet. Pt states he vomited this shift. D/C uncertain at this time. Hourly rounding maintained for safety. Will continue to monitor.
[2017-04-29] MEDS: ONDANSETRON INJ 2 MG/ML 2 ML VIAL IV PRN ×2 (05:03→11:53)
[2017-04-29 05:19] LABS: HEMATOCRIT 27.1 % (42-52); HEMOGLOBIN 9.6 g/dL (14.0-18.0); MEAN CELL VOLUME 82.1 fL (80-100); MEAN CORPUSCULAR HEMOGLOBIN 29.1 pg (25-34); MEAN CORPUSCULAR HGB CONC 35.4 g/dl (32-36); MEAN PLATELET VOLUME 8.9 fL (7.4-10.4); PLATELET COUNT 189 K/uL (130-400); RED CELL DISTRIBUTION WIDTH CV 14.9 % (11.5-14.5); RED CELL DISTRIBUTION WIDTH SD 44.9 fL (36.4-46.3)
[2017-04-29 05:46] LABS: CALCIUM 7.7 mg/dl (8.5-10.1); CREATININE 1.35 mg/dl (0.60-1.40); POTASSIUM 3.7 mmol/L (3.5-5.1)
[2017-04-29] MEDS: INSULIN ASPART 100 UNITS/ML 3 ML PEN SC SCH ×4 (06:30→20:42)
[2017-04-29] MEDS: SODIUM CHLORIDE 0.9% 1000ML 1,000 ML IV SCH ×2 (07:29→16:58)
[2017-04-29] MEDS: CHECK FENTANYL PATCH PLACEMENT SCH ×2 (07:30→15:24)
[2017-04-29] MEDS ORDERED: INSULIN GLARGINE SOLOSTAR 100 UNITS/ML 3 ML PEN SC ONE (08:00)
[2017-04-29] MEDS: AMLODIPINE BESYLATE 5 MG TAB PO SCH (09:26)
[2017-04-29] MEDS: METOPROLOL TARTRATE 25 MG TAB PO SCH ×2 (09:27→19:54)
[2017-04-29] MEDS: PANTOprazole SOD 40 MG TAB PO SCH ×2 (09:27→19:53)
[2017-04-29] MEDS: LEVETIRACETAM 500 MG TAB PO SCH ×2 (09:28→19:53)
[2017-04-29] MEDS: DULOXETINE (CYMBALTA) 30 MG CAP PO SCH (09:28)
[2017-04-29] MEDS: HEPARIN SOD 5000 UNIT/0.5 ML CARP SQ SCH ×2 (09:30→20:51)
[2017-04-29] MEDS: PROCHLORPERAZINE MALEATE 10 MG TAB PO PRN ×2 (09:31→15:17)
--- NOTE | 2017-04-29 10:03 | Pharmacy Progress Note ---
Pharmacy Glycemic Short Note 2 Date of Service Apr 29, 2017. OUTPATIENT ANTIDIABETIC REGIMEN: * Lantus 15 units SQ qHS * Humalog SSI * HbA1c: 7.9% (04/26/17) ASSESSMENT: * 51yo T2DM male known to pharmacy from previous admissions/glycemic consults. * Patient has been receiving ~ 30 units of insulin per day with adequate control * BSGs 04/27: 179, 99, 94, 166 * BSgs 04/28: 196, 112, 84, 118 * AM fasting BSG remained high previous two days - therefore, working basal insulin from AM dosing back to HS dosing {outpatient dosing schedule}. This has worked well in previous admissions for controlling AM fasting hyperglycemia. * AM fasting BSG slightly below goal range this morning at 79mg/dl but that is because we are working back to HS dosing of Lantus and patient has additional basal insulin on board PLAN FOR INPATIENT GLYCEMIC CONTROL: no changes needed at this time * Basal insulin * Lantus 18 units SQ HS * Bolus insulin * NovoLog per scale ACHS or Q6hrs while NPO * Goal Range: Low 120 mg/dL - High 160 mg/dL * Correction Factor: 30 mg/dL/unit * Nutritional / Prandial insulin per carb ratio of 1 unit per 10 grams CHO consumed
--- NOTE | 2017-04-29 10:22 | Progress Note ---
Subjective Date of Service: Apr 29, 2017. Subjective Pt evaluation today including: conversation w/ patient, physical exam, lab review, review of studies, review of inpatient medication list Saw/examined the patient in room 421 He's still nauseous, states he has vomiting episodes, though nursing tells me they have not witnessed this +pain persists Problem List Medical Problems: (1) Acute kidney injury Status: Acute (2) Altered mental status Status: Acute (3) Anemia Status: Acute (4) Chronic pain Status: Acute (5) Dehydration Status: Acute (6) Dehydration Status: Acute (7) Dehydration Status: Acute (8) Dehydration Status: Acute (9) Dehydration Status: Acute (10) Diabetes mellitus with hyperglycemia Status: Acute (11) Failure of outpatient treatment Status: Acute (12) Hyperglycemia Status: Acute (13) Hypomagnesemia Status: Acute (14) Hypomagnesemia Status: Acute (15) Hyponatremia Status: Acute (16) Intractable vomiting Status: Acute (17) Intractable vomiting Status: Acute (18) Intrathecal pump infection Status: Acute (19) Orthostatic hypotension Status: Acute (20) Pneumonia Status: Acute (21) Post-operative complication Status: Acute (22) Sepsis Status: Acute (23) Vomiting Status: Acute (24) Vomiting Status: Acute Review of Systems Respiratory: No shortness of breath Cardiac: No chest pain Abdomen: + nausea, + vomiting, No pain, No diarrhea, No constipation, No GI bleeding Musculoskeletal: + joint pain, + muscle pain Neurologic: + numbness/tingling Medications Current Inpatient Medications Medications (Trade) Dose Ordered Sig/Cal Route Start Time Stop Time Status Last Admin Dose Admin Ioversol (Optiray 320) 100 ml UD PRN IV 04/25/17 16:45 04/29/17 16:44 Heparin Sodium (Porcine) (Heparin Sq 5000 Unit/0.5ml) 5,000 unit Q12 SQ 04/26/17 09:00 05/26/17 08:59 04/29/17 09:30 5,000 UNIT Ondansetron HCl (Zofran Inj) 4 mg Q6H PRN IV 04/25/17 19:30 05/25/17 19:29 04/29/17 05:03 4 MG Albuterol (Ventolin Hfa Inhaler) 2 puffs Q6H PRN INH 04/25/17 21:15 05/25/17 21:14 12/24/17 15:26 2 PUFFS Fentanyl (Duragesic Patch) 100 mcg Q2D@2100 TD 04/25/17 23:45 05/09/17 23:44 04/27/17 21:21 100 MCG Prochlorperazine Maleate (Compazine Tab) 10 mg Q6H PRN PO 04/25/17 21:15 05/25/17 21:14 04/29/17 09:31 10 MG Glucose (Glucose 40% Gel) UD PRN PO 04/25/17 23:45 05/25/17 23:44 Glucose (Glucose Chew Tab) 1 tabs UD PRN PO 04/25/17 23:45 05/25/17 23:44 Dextrose (Dextrose 50% 50ML Syringe) 50 ml UD PRN IV 04/25/17 23:45 05/25/17 23:44 Glucagon (Glucagon Inj) 1 mg UD PRN SQ 04/25/17 23:45 05/25/17 23:44 Miscellaneous (Fentanyl Patch Remove & Waste) 1 ea Q2D@2059 N/A 04/27/17 20:59 05/27/17 20:58 04/27/17 21:20 1 EA Miscellaneous Information (Check Fentanyl Patch Placement) 1 ea QS N/A 04/26/17 08:00 05/26/17 07:59 04/29/17 07:30 1 EA Levetiracetam (Keppra Tab) 1,000 mg BID PO 04/26/17 21:00 05/26/17 20:59 04/29/17 09:28 1,000 MG Duloxetine HCl (Cymbalta Cap) 30 mg QAM PO 04/26/17 09:15 05/26/17 09:14 04/29/17 09:28 30 MG Miscellaneous Information (Consult Glycemic Management Pharmacy) 1 ea UD PRN N/A 04/26/17 09:20 05/26/17 09:19 Pantoprazole Sodium (Protonix Tab) 40 mg BID PO 04/26/17 21:00 05/26/17 20:59 04/29/17 09:27 40 MG Insulin Aspart (novoLOG ASPART) SLIDING SCALE ACHS SC 04/26/17 11:00 05/26/17 10:59 04/28/17 08:31 3 UNITS Heparin Sodium (Porcine) (Heparin 10 Unit/ ml 5 ml Flush) 5 ml PRN PRN FLUSH 04/26/17 14:00 05/26/17 13:59 Amlodipine Besylate (Norvasc Tab) 5 mg DAILY PO 04/27/17 08:00 05/27/17 08:59 04/29/17 09:26 5 MG Metoprolol Tartrate (Lopressor Tab) 75 mg BID PO 04/26/17 21:00 05/26/17 20:59 04/29/17 09:27 75 MG Sodium Chloride 1,000 ml @ 100 mls/hr Q10H IV 04/26/17 20:00 05/26/17 19:59 04/29/17 07:29 100 MLS/HR Insulin Glargine (Lantus Solostar Pen) 6 units HS SC 04/28/17 21:00 05/28/17 20:59 04/28/17 21:07 6 UNITS Insulin Glargine (Lantus Solostar Pen) 18 units HS SC 04/29/17 21:00 05/29/17 20:59 Oxycodone HCl (Roxicodone Immediate Rel Tab) 10 mg Q4H PRN PO 04/28/17 17:00 05/28/17 16:59 04/29/17 05:33 10 MG Hydromorphone HCl (Dilaudid Inj) 0.5 mg Q6 PRN IV 04/29/17 10:15 05/13/17 10:14 UNV Objective Vital Signs Date Time Temp Pulse Resp B/P (MAP) Pulse Ox O2 Delivery O2 Flow Rate FiO2 04/29/17 07:28 36.6 80 18 102/65 (77) 100 Room Air 04/29/17 04:00 36.5 81 18 129/80 (96) 99 Room Air 04/29/17 03:57 Room Air 04/29/17 00:29 36.7 76 18 135/82 (99) 100 Room Air 04/28/17 21:01 84 183/104 (130) 04/28/17 20:00 Room Air 04/28/17 19:48 36.8 77 18 157/91 (113) 99 Room Air 04/28/17 16:23 36.8 75 18 136/82 (100) 100 Room Air 04/28/17 16:10 99 Room Air 04/28/17 11:32 36.7 70 14 135/61 (85) 100 Room Air Physical Exam General Appearance: + mild distress, + pertinent finding (secondary to pain, ill appearing, uncomfortable appearing) Respiratory/Chest: lungs clear, normal breath sounds, no respiratory distress, no accessory muscle use Cardiovascular: regular rate, rhythm, no edema, no murmur Abdomen: normal bowel sounds, non tender, soft Laboratory Results Last 24 Hours Test 04/28/17 11:44 04/28/17 15:46 04/28/17 20:25 04/29/17 05:07 Bedside Glucose 112 mg/dl 84 mg/dl 118 mg/dl White Blood Count 3.90 K/uL Red Blood Count 3.30 M/uL Hemoglobin 9.6 g/dL Hematocrit 27.1 % Mean Corpuscular Volume 82.1 fL Mean Corpuscular Hemoglobin 29.1 pg Mean Corpuscular Hemoglobin Concent 35.4 g/dl RDW Standard Deviation 44.9 fL RDW Coefficient of Variation 14.9 % Platelet Count 189 K/uL Mean Platelet Volume 8.9 fL Sodium Level 138 mmol/L Potassium Level 3.7 mmol/L Chloride Level 104 mmol/L Carbon Dioxide Level 27 mmol/L Anion Gap 7.0 mmol/L Blood Urea Nitrogen 7 mg/dl Creatinine 1.35 mg/dl Est Creatinine Clear Calc Drug Dose 62.6 ml/min Estimated GFR () 70.0 Estimated GFR (Non- 60.4 BUN/Creatinine Ratio 4.9 Random Glucose 99 mg/dl Calcium Level 7.7 mg/dl Test 04/29/17 07:43 Bedside Glucose 79 mg/dl Assessment and Plan This is a 51 year old male with PMH of uncontrolled, insulin-dependent DM2 with multiple complications including severe gastroparesis s/p gastric stimulator insertion, severe peripheral neuropathy on chronic pain medications - presents with worsening nausea/vomiting/dehydration Uncontrolled DM2 04/29 appreciate glycemic control consult BSGs are stable no changes made 04/28 BSGs better controlled will advance diet 04/27 much better controlled his BSGs are doing better off of insulin drip - back on subq insulin appreciate pharmacy glycemic control consult 04/26 patient initially started on insulin ggt due to BSGs >400 BSGs are now closer to baseline will consult pharmacy for transition from insulin drip to SQ, he has labile BSGs diabetic education he may need a new glucometer as his home one is not reading proper blood sugars Severe Gastroparesis 04/29 continue IVFs and Compazine 04/28 one more dose of Emend 04/27 continue IV Emend 04/26 symptoms began with nausea/vomiting he has a gastric pacemaker - will need adjustment in settings at [facility] plan for now is to do Emend GI consult for further input Acute Kidney Injury superimposed on CKD stage 3 - improving creatinine at baseline is close to 1.3-1.4 presented with creat at 1.9 due to dehydration improved with IVFs continue IVFs and monitor creat; avoid nephrotoxic agents if able Hyponatremia secondary to dehydration and elevated BSGs Na improved with IVFs Severe Diabetic Neuropathy follows with pain management at once had an intrathecal pump, had to be removed due to infection was then placed on fentanyl patch IV Dilaudid PRN ordered while inpatient appreciate pain management input - Cymbalta restarted; Keppra dose increased NUTRITION / WEIGHT LOSS Weight fluctuates, partly due to volume status. Patient states that he has lost about 40 lbs over past several months. Review of wts here: 85 - 91 kg in September, 98-100 kg in February 2017, 81 kg in March, 69 kg now. Suspect malnutrition / wt loss secondary to gastroparesis and poor PO intake. History of lung Ca, but no apparent recurrence. Consult Nutrition. HYPERTENSION BP low upon arrival to ED- probably due to volume depletion. BP elevated after receiving IV fluids. Unable to take oral meds due to N/V. Hold HCTZ because of dehydration. Hold amlodipine until N&V improve. IV metoprolol until able to take oral metoprolol tartrate. IV enalapril until able to take oral lisinopril. Follow and titrate therapy. LUNG CANCER Adenocarcinoma of lung, s/p resection and chemo. No apparent recurrence per CT chest. Has f/u appt with Medical Oncology. SEIZURE DISORDER Continue levetiracetam. ULCERATION RIGHT GREAT TOE Has ulcer dorsum of right great toe which patient attributes to crawling on bathroom floor when he has nausea and vomiting. Consult Wound Care Nursing. GENERAL DEBILITATION Multifactorial. PT / OT. VTE PROPHYLAXIS Moderate-high risk. SQ heparin. Ambulate as able. DISPOSITION Admit to Telemetry Unit. Discharge disposition to be determined. May need skilled care or inpt rehab. Medical follow-up with Dr. Burgess.
[2017-04-29] MEDS: HYDROmorphone INJ 0.5 MG/0.5 ML SYR IV PRN ×2 (11:55→19:51)
[2017-04-29] MEDS: FENTANYL PATCH REMOVE & WASTE SCH (20:45)
[2017-04-29] MEDS: FENTANYL 100 MCG/HR TDSY TD SCH (20:46)
[2017-04-29] MEDS: INSULIN GLARGINE SOLOSTAR 100 UNITS/ML 3 ML PEN SC SCH (20:51)
[2017-04-30] VITALS (8 sets, daily range): BP systolic 92–186; BP diastolic 56–106; PULSE 66–83; TEMP 36.6–37.1; O2SAT 98–100
[2017-04-30] MEDS: SODIUM CHLORIDE 0.9% 1000ML 1,000 ML IV SCH ×2 (03:25→18:36)
[2017-04-30] MEDS: OXYCODONE HCL IR 5 MG TAB (IMMEDIATE RELEASE) PO PRN ×4 (03:30→20:43)
[2017-04-30] MEDS: ONDANSETRON INJ 2 MG/ML 2 ML VIAL IV PRN (04:35)
--- NOTE | 2017-04-30 04:49 | NUR ---
ID: Pt is A&OX4. IND with ambulation in the halls and room. VSS. Lung sounds are clear on R/A. Reports generalized pain rated at 7/10. Roxicodone 10mg given once this shift. NSS infusing at 100ml/hr. Pt reports he has been vomiting. Nursing staff has not visualized emesis this shift. Pt given sickness bag and told to ring if vomits. D/C uncertain at this time. Possible skilled care or in pt rehab needed per MD. Hourly rounding maintained for safety. Will continue to monitor.
[2017-04-30 05:30] LABS: HEMATOCRIT 26.6 % (42-52); HEMOGLOBIN 9.4 g/dL (14.0-18.0); MEAN CELL VOLUME 82.6 fL (80-100); MEAN CORPUSCULAR HEMOGLOBIN 29.2 pg (25-34); MEAN CORPUSCULAR HGB CONC 35.3 g/dl (32-36); MEAN PLATELET VOLUME 8.9 fL (7.4-10.4); PLATELET COUNT 172 K/uL (130-400); RED CELL DISTRIBUTION WIDTH CV 14.9 % (11.5-14.5); RED CELL DISTRIBUTION WIDTH SD 44.8 fL (36.4-46.3); WHITE BLOOD COUNT 3.17 K/uL (4.8-10.8)
[2017-04-30 05:53] LABS: CALCIUM 7.5 mg/dl (8.5-10.1); CREATININE 1.3 mg/dl (0.60-1.40); POTASSIUM 3.3 mmol/L (3.5-5.1)
[2017-04-30] MEDS ORDERED: POTASSIUM CHLORIDE 20 MEQ TABCR PO ONE (08:00)
[2017-04-30] MEDS: CHECK FENTANYL PATCH PLACEMENT SCH ×4 (08:00→23:42)
[2017-04-30] MEDS: HEPARIN SOD 5000 UNIT/0.5 ML CARP SQ SCH ×2 (08:36→20:52)
[2017-04-30] MEDS: INSULIN ASPART 100 UNITS/ML 3 ML PEN SC SCH ×5 (08:38→22:32)
[2017-04-30] MEDS: PANTOprazole SOD 40 MG TAB PO SCH ×2 (09:36→20:42)
[2017-04-30] MEDS: LEVETIRACETAM 500 MG TAB PO SCH ×2 (09:36→20:42)
[2017-04-30] MEDS: AMLODIPINE BESYLATE 5 MG TAB PO SCH (09:38)
[2017-04-30] MEDS: DULOXETINE (CYMBALTA) 30 MG CAP PO SCH (09:40)
[2017-04-30] MEDS: PROCHLORPERAZINE MALEATE 10 MG TAB PO PRN ×2 (09:40→16:41)
[2017-04-30] MEDS: MAGNESIUM SULFATE 1GM / D5W 1 GM in PREMIXED IN D5W 100 ML IV SCH ×4 (10:27→14:36)
[2017-04-30] MEDS: METOPROLOL TARTRATE 25 MG TAB PO SCH ×2 (10:28→20:42)
--- NOTE | 2017-04-30 12:49 | Pharmacy Progress Note ---
Pharmacy Glycemic Short Note 2 Date of Service Apr 30, 2017. OUTPATIENT ANTIDIABETIC REGIMEN: * Lantus 15 units SQ qHS * Humalog SSI * HbA1c: 7.9% (04/26/17) ASSESSMENT: 04/29/17 * 51yo T2DM male known to pharmacy from previous admissions/glycemic consults. * Patient has been receiving ~ 30 units of insulin per day with adequate control * BSGs 04/27: 179, 99, 94, 166 * BSgs 04/28: 196, 112, 84, 118 * AM fasting BSG remained high previous two days - therefore, working basal insulin from AM dosing back to HS dosing {outpatient dosing schedule}. This has worked well in previous admissions for controlling AM fasting hyperglycemia. * AM fasting BSG slightly below goal range this morning at 79mg/dl but that is because we are working back to HS dosing of Lantus and patient has additional basal insulin on board 04/30/17 * Patient received 25 units of insulin yesterday, with BSGs ranging from 120- 250 mg/dL in the past 24 hours * His fasting BSG is elevated this AM, but this is most likely due to moving the Lantus dose from AM to PM within the past 24 hours * His BSG has improved as of lunch today, and I expect this to continue improving with the basal on board * Hesitant to make any changes with BSGs on the lower side just a few days ago PLAN FOR INPATIENT GLYCEMIC CONTROL: no changes needed at this time * Basal insulin * Lantus 18 units SQ HS * Bolus insulin * NovoLog per scale ACHS or Q6hrs while NPO * Goal Range: Low 120 mg/dL - High 160 mg/dL * Correction Factor: 30 mg/dL/unit * Nutritional / Prandial insulin per carb ratio of 1 unit per 10 grams CHO consumed
--- NOTE | 2017-04-30 14:26 | Progress Note ---
Internal Med Progress Note Date of Service: Apr 30, 2017. Provider Documentation: SUBJECTIVE: Patient seen and examined at bedside. Patient reports vomiting overnight. His labs this AM was significant for hypomagnesemia and hypokalemia OBJECTIVE: General Appearance: no acute distress Head: normocephalic, atraumatic Eyes: normal inspection, EOMI, sclerae normal ENT: hearing grossly normal, pharynx normal Neck: supple, no adenopathy, thyroid normal, no JVD, trachea midline Respiratory/Chest: lungs clear, no respiratory distress, no accessory muscle use Cardiovascular: regular rate, rhythm, no edema, no gallop, no JVD, normal peripheral pulses Abdomen/GI: reports tenderness on palpation of middle of belly, soft, bowel sounds audible Back: lumbar incision healed; no erythema or drainage Extremities/Musculoskelatal: normal inspection, no calf tenderness, normal capillary refill Neurologic/Psych: no motor/sensory deficits (motor strength upper and lower extremities grossly intact), oriented x 3 ASSESSMENT & PLAN: 51 year old male with PMH of uncontrolled, insulin-dependent DM2 with multiple complications including severe gastroparesis s/p gastric stimulator insertion, severe peripheral neuropathy on chronic pain medications - presents with worsening nausea/vomiting/dehydration DM2 - labile glucose levels on admission initially glucose greater than 400 and needed insulin drip currently managed with subcutaneous insulin and pharmacy glycemic consultation and glucose generally under 200 History of gastroparesis from diabetes he has a gastric pacemaker - will need adjustment in settings at [facility] has been on IV Fosaprepitant dimeglumine (Emend) on this admission continue IVFs and Compazine Seen by GI service in the hospital, will need outpatient GI follow up on discharge Diabetic Neuropathy follows with pain management was then placed on fentanyl patch Keppra to 1000 mg by mouth twice a day to further diminish neuropathic type pain as well as initiation of Cymbalta 30 mg by mouth daily as per pain management from 04/26/17 Electrolytes Hyponatremia on admission was due to elevated serum glucose, Hyponatremia resolved after glucose control and IV fluids Hypomagnesemia, serum magnesium of 1 on 04/20/17, ordered 4 grams of IV magnesium and recheck serum levels Hypokalemia, serum potassium 3.3, ordered PO potassium 60 meq and recheck serum levels NUTRITION / WEIGHT LOSS Weight fluctuates, partly due to volume status. Patient states that he has lost about 40 lbs over past several months. Review of wts here: 85 - 91 kg in September, 98-100 kg in February 2017, 81 kg in March, 69 kg now. Suspect malnutrition / wt loss secondary to gastroparesis and poor PO intake. History of lung Ca, but no apparent recurrence. Consult Nutrition. HYPERTENSION history BP low upon arrival to ED- probably due to volume depletion. BP elevated after receiving IV fluids. Unable to take oral meds due to N/V. Hold HCTZ because of dehydration. Hold amlodipine until N&V improve. IV metoprolol until able to take oral metoprolol tartrate. IV enalapril until able to take oral lisinopril. Follow and titrate therapy. Acute Kidney Injury superimposed on CKD stage 3, Acute Kidney Injury resolved creatinine 1.9 on admission and now a back to baseline 1.3 LUNG CANCER Adenocarcinoma of lung, s/p resection and chemo. No apparent recurrence per CT chest. Has f/u appt with Medical Oncology. SEIZURE DISORDER Continue levetiracetam. ULCERATION RIGHT GREAT TOE Has ulcer dorsum of right great toe which patient attributes to crawling on bathroom floor when he has nausea and vomiting. Consult Wound Care Nursing. GENERAL DEBILITATION PT / OT. VTE PROPHYLAXIS Moderate-high risk. SQ heparin. Ambulate as able. Vital Signs: Date Time Temp Pulse Resp B/P (MAP) Pulse Ox O2 Delivery O2 Flow Rate FiO2 04/30/17 09:51 179/106 (130) 04/30/17 08:50 99 Room Air 04/30/17 08:00 37.1 83 20 92/56 (68) 98 Room Air 04/30/17 03:30 Room Air 04/29/17 23:29 36.7 69 16 148/88 (108) 99 Room Air 04/29/17 19:34 36.6 71 18 156/93 (114) 100 Room Air 04/29/17 16:00 100 Room Air 04/29/17 15:48 36.4 70 18 135/103 (114) 100 Room Air Lab Results: Results Past 24 Hours Test 04/29/17 16:30 04/29/17 19:49 04/30/17 05:16 04/30/17 07:59 Range/Units Bedside Glucose 190 140 250 70-99 mg/dl White Blood Count 3.17 4.8-10.8 K/uL Red Blood Count 3.22 4.7-6.1 M/uL Hemoglobin 9.4 14.0-18.0 g/dL Hematocrit 26.6 42-52 % Mean Corpuscular Volume 82.6 80-100 fL Mean Corpuscular Hemoglobin 29.2 25-34 pg Mean Corpuscular Hemoglobin Concent 35.3 32-36 g/dl RDW Standard Deviation 44.8 36.4-46.3 fL RDW Coefficient of Variation 14.9 11.5-14.5 % Platelet Count 172 130-400 K/uL Mean Platelet Volume 8.9 7.4-10.4 fL Sodium Level 138 136-145 mmol/L Potassium Level 3.3 3.5-5.1 mmol/L Chloride Level 104 98-107 mmol/L Carbon Dioxide Level 30 21-32 mmol/L Anion Gap 4.0 3-11 mmol/L Blood Urea Nitrogen 7 7-18 mg/dl Creatinine 1.30 0.60-1.40 mg/dl Est Creatinine Clear Calc Drug Dose 65.0 ml/min Estimated GFR () 73.2 Estimated GFR (Non- 63.2 BUN/Creatinine Ratio 5.1 10-20 Random Glucose 194 70-99 mg/dl Calcium Level 7.5 8.5-10.1 mg/dl Magnesium Level 1.0 1.8-2.4 mg/dl Test 04/30/17 11:17 04/30/17 14:18 Range/Units Bedside Glucose 188 70-99 mg/dl
[2017-04-30 14:50] LABS: POTASSIUM 3.6 mmol/L (3.5-5.1)
[2017-04-30] MEDS ORDERED: MAGNESIUM SULFATE 1GM / D5W 1 GM in PREMIXED IN D5W 100 ML IV STA (16:50)
[2017-04-30] MEDS ORDERED: POTASSIUM CHLORIDE 20 MEQ TABCR PO STA (16:50)
[2017-04-30] MEDS: INSULIN GLARGINE SOLOSTAR 100 UNITS/ML 3 ML PEN SC SCH (20:53)
[2017-05-01] MEDS: OXYCODONE HCL IR 5 MG TAB (IMMEDIATE RELEASE) PO PRN ×3 (00:44→10:06)
[2017-05-01] MEDS: ONDANSETRON INJ 2 MG/ML 2 ML VIAL IV PRN ×3 (00:46→17:39)
--- NOTE | 2017-05-01 00:55 | NUR ---
ID note: A/Ox4. Pain controlled with medication. OOB independently with a walker. Tolerating a type 2 diabetic diet. Discharge plans uncertain at this time.
[2017-05-01 04:49] LABS: ALBUMIN 2.7 gm/dl (3.4-5.0); CALCIUM 7.5 mg/dl (8.5-10.1); CREATININE 1.33 mg/dl (0.60-1.40); POTASSIUM 3.7 mmol/L (3.5-5.1)
[2017-05-01 04:52] LABS: TOTAL PROTEIN 5.8 gm/dl (6.4-8.2)
[2017-05-01] MEDS: SODIUM CHLORIDE 0.9% 1000ML 1,000 ML IV SCH ×3 (05:01→16:30)
[2017-05-01] MEDS: PROCHLORPERAZINE MALEATE 10 MG TAB PO PRN ×2 (05:43→15:58)
[2017-05-01 07:34] VITALS: BP 169/96; PULSE 73; TEMP 36.9; O2SAT 100
[2017-05-01] MEDS: PANTOprazole SOD 40 MG TAB PO SCH ×2 (09:09→20:25)
[2017-05-01] MEDS: DULOXETINE (CYMBALTA) 30 MG CAP PO SCH (09:09)
[2017-05-01] MEDS: METOPROLOL TARTRATE 25 MG TAB PO SCH ×2 (09:10→20:25)
[2017-05-01] MEDS: LEVETIRACETAM 500 MG TAB PO SCH ×2 (09:10→20:25)
[2017-05-01] MEDS: AMLODIPINE BESYLATE 5 MG TAB PO SCH (09:10)
[2017-05-01] MEDS: CHECK FENTANYL PATCH PLACEMENT SCH ×3 (09:11→23:56)
[2017-05-01] MEDS: INSULIN ASPART 100 UNITS/ML 3 ML PEN SC SCH ×4 (09:20→20:40)
[2017-05-01] MEDS: HEPARIN SOD 5000 UNIT/0.5 ML CARP SQ SCH ×2 (09:20→20:41)
[2017-05-01] MEDS ORDERED: POTASSIUM CHLORIDE 20 MEQ TABCR PO STA (09:36)
[2017-05-01] MEDS: MAGNESIUM SULFATE 1GM / D5W 1 GM in PREMIXED IN D5W 100 ML IV SCH ×2 (10:11→11:20)
--- NOTE | 2017-05-01 10:59 | Progress Note ---
Internal Med Progress Note Date of Service: May 01, 2017. Provider Documentation: SUBJECTIVE: Patient seen and examined at bedside. Patient reports vomiting. His labs this AM significant for hypomagnesemia and hypokalemia but these levels are much higher than yesterday's labs. Patient agrees for pain medication to be reduced to try and alleviate symptoms of gastroparesis / vomiting by minimizing narcotic medications OBJECTIVE: General Appearance: no acute distress Head: normocephalic, atraumatic Eyes: normal inspection, EOMI, sclerae normal ENT: hearing grossly normal, pharynx normal Neck: supple, no JVD, trachea midline Respiratory/Chest: lungs clear, no respiratory distress, no accessory muscle use Cardiovascular: regular rate, rhythm, no edema, no gallop, no JVD, normal peripheral pulses Abdomen/GI: soft, bowel sounds audible Back: lumbar incision healed; no erythema or drainage Extremities/Musculoskelatal: normal inspection, no calf tenderness, normal capillary refill Neurologic/Psych: no motor/sensory deficits (motor strength upper and lower extremities grossly intact), oriented x 3 ASSESSMENT & PLAN: 51 year old male with PMH of uncontrolled, insulin-dependent DM2 with multiple complications including severe gastroparesis s/p gastric stimulator insertion, severe peripheral neuropathy on chronic pain medications - presents with worsening nausea/vomiting/dehydration DM2 - labile glucose levels on admission initially glucose greater than 400 and needed insulin drip currently managed with subcutaneous insulin and pharmacy glycemic consultation and glucose generally under 200 History of gastroparesis from diabetes he has a gastric pacemaker - will need adjustment in settings at [facility] has been on IV Fosaprepitant dimeglumine (Emend) on this admission continue IVFs and Compazine Seen by GI service in the hospital, will need outpatient GI follow up on discharge Diabetic Neuropathy followed with pain management and was then placed on fentanyl patch Keppra to 1000 mg by mouth twice a day to further diminish neuropathic type pain as well as initiation of Cymbalta 30 mg by mouth daily as per pain management from 04/26/17 PRN dilaudid was stopped on 04/30/17 and Percocet stopped on 05/01/17 to avoid worsening gastroparesis symptoms of nausea and a vomiting Electrolytes Hyponatremia on admission was due to elevated serum glucose, Hyponatremia resolved after glucose control and IV fluids Hypomagnesemia and Hypokalemia secondary to losses from vomiting vs diarrhea and is receiving additional electrolyte supplements today NUTRITION / WEIGHT LOSS from poor oral intake due to abdominal discomfort and vomiting HYPERTENSION history BP low upon arrival to ED- probably due to volume depletion. BP elevated after receiving IV fluids. Unable to take oral meds due to N/V. Hold HCTZ because of dehydration. Hold amlodipine until N&V improve. IV metoprolol until able to take oral metoprolol tartrate. IV enalapril until able to take oral lisinopril. Follow and titrate therapy. Acute Kidney Injury superimposed on CKD stage 3, Acute Kidney Injury resolved creatinine 1.9 on admission and now a back to baseline 1.3 LUNG CANCER Adenocarcinoma of lung, s/p resection and chemo. No apparent recurrence per CT chest. Has f/u appt with Medical Oncology. SEIZURE DISORDER Continue levetiracetam. ULCERATION RIGHT GREAT TOE Has ulcer dorsum of right great toe which patient attributes to crawling on bathroom floor when he has nausea and vomiting. Wound Care, Nursing. GENERAL DEBILITATION PT / OT. VTE PROPHYLAXIS SQ heparin. Ambulate as able. Vital Signs: Date Time Temp Pulse Resp B/P (MAP) Pulse Ox O2 Delivery O2 Flow Rate FiO2 05/01/17 07:34 36.9 73 16 169/96 (120) 100 Room Air 04/30/17 23:45 Room Air 04/30/17 23:45 155/87 (109) 04/30/17 22:54 36.6 73 18 186/106 (132) 100 Room Air 04/30/17 22:35 172/102 (125) 04/30/17 16:00 98 Room Air 04/30/17 14:53 36.8 66 18 128/79 (95) 98 Room Air Lab Results: Results Past 24 Hours Test 04/30/17 11:17 04/30/17 14:18 04/30/17 16:56 04/30/17 19:24 Range/Units Bedside Glucose 188 127 81 70-99 mg/dl Potassium Level 3.6 3.5-5.1 mmol/L Magnesium Level 1.8 1.8-2.4 mg/dl Test 05/01/17 04:14 05/01/17 07:46 Range/Units Sodium Level 136 136-145 mmol/L Potassium Level 3.7 3.5-5.1 mmol/L Chloride Level 102 98-107 mmol/L Carbon Dioxide Level 29 21-32 mmol/L Anion Gap 5.0 3-11 mmol/L Blood Urea Nitrogen 7 7-18 mg/dl Creatinine 1.33 0.60-1.40 mg/dl Est Creatinine Clear Calc Drug Dose 63.6 ml/min Estimated GFR () 71.2 Estimated GFR (Non- 61.5 BUN/Creatinine Ratio 5.5 10-20 Random Glucose 261 70-99 mg/dl Calcium Level 7.5 8.5-10.1 mg/dl Magnesium Level 1.7 1.8-2.4 mg/dl Total Bilirubin 0.2 0.2-1 mg/dl Aspartate Amino Transf (AST/SGOT) 9 15-37 U/L Alanine Aminotransferase (ALT/SGPT) 12 12-78 U/L Alkaline Phosphatase 81 45-117 U/L Total Protein 5.8 6.4-8.2 gm/dl Albumin 2.7 3.4-5.0 gm/dl Globulin 3.1 2.5-4.0 gm/dl Albumin/Globulin Ratio 0.9 0.9-2 Bedside Glucose 195 70-99 mg/dl
--- NOTE | 2017-05-01 13:14 | Pharmacy Progress Note ---
Pharmacy Glycemic Short Note 2 Date of Service May 01, 2017. OUTPATIENT ANTIDIABETIC REGIMEN: * Basaglar 15 units SQ qHS * Humalog SSI (1-10 units with each meal depending on food consumed and BSG) * HbA1c: 7.9% (04/26/17) ASSESSMENT: 04/29/17 * 51yo T2DM male known to pharmacy from previous admissions/glycemic consults. * Patient has been receiving ~ 30 units of insulin per day with adequate control * BSGs 04/27: 179, 99, 94, 166 * BSgs 04/28: 196, 112, 84, 118 * AM fasting BSG remained high previous two days - therefore, working basal insulin from AM dosing back to HS dosing {outpatient dosing schedule}. This has worked well in previous admissions for controlling AM fasting hyperglycemia. * AM fasting BSG slightly below goal range this morning at 79mg/dl but that is because we are working back to HS dosing of Lantus and patient has additional basal insulin on board 04/30/17 * Patient received 25 units of insulin yesterday, with BSGs ranging from 120- 250 mg/dL in the past 24 hours * His fasting BSG is elevated this AM, but this is most likely due to moving the Lantus dose from AM to PM within the past 24 hours * His BSG has improved as of lunch today, and I expect this to continue improving with the basal on board * Hesitant to make any changes with BSGs on the lower side just a few days ago 05/01/17 * Mr. Hamilton received 27 units of insulin yesterday with BSGs ranging from 55- 261 mg/dL in the past 24 hours * Fasting BSG remains elevated at 261: RN reports patient snacks a lot overnight so I will add an overnight accucheck rather than increase the basal * Postprandial BSGs from yesterday looked good. He did have a low prior to lunch today but RN reports he vomited this AM so the insulin coverage he received would have caused this low PLAN FOR INPATIENT GLYCEMIC CONTROL: * Basal insulin * Continue Lantus 18 units SQ HS * Bolus insulin * NovoLog per scale ACHS or Q6hrs while NPO + 0200 accucheck * Goal Range: Low 120 mg/dL - High 160 mg/dL * Correction Factor: 30 mg/dL/unit * Nutritional / Prandial insulin per carb ratio of 1 unit per 10 grams CHO consumed RECOMMENDATIONS FOR DISCHARGE: * Consider increasing Basaglar to 18 units qHS * Continue Humalog per sliding scale
--- NOTE | 2017-05-01 14:48 | NUR ---
Pt seen for followup, refer to linked note for full assessment and recommendations. Addendum: 05/01/17 at [address] Amended: Links added.
[2017-05-01 15:35] VITALS: BP 190/102; PULSE 70; TEMP 36.6; O2SAT 100
[2017-05-01] MEDS: CLONIDINE HCL 0.1 MG TAB PO PRN (15:58)
[2017-05-01 16:00] VITALS: O2SAT 100
[2017-05-01] MEDS: FENTANYL PATCH REMOVE & WASTE SCH (20:25)
[2017-05-01] MEDS: FENTANYL 100 MCG/HR TDSY TD SCH (20:27)
[2017-05-01] MEDS: INSULIN GLARGINE SOLOSTAR 100 UNITS/ML 3 ML PEN SC SCH (20:41)
[2017-05-01 23:09] VITALS: BP 121/78; PULSE 75; TEMP 36.5; O2SAT 99
[2017-05-01] MEDS ORDERED: OXYCODONE HCL IR 5 MG TAB (IMMEDIATE RELEASE) PO PRN (23:45)
--- NOTE | 2017-05-02 00:46 | NUR ---
ID: Pt A/Ox4. Independent in room and ambulates in halls independently. IVF infusing without incident. VSS on room air. Pt reports nausea, and reports having about 9 episodes of emesis through out day. Eating sherbet at this time and tolerating well. Pt c/o of pain, mainly headache at this time. Pt aware that pain medications have been discontinued to try and help with nausea, agreeable to try other measures to help alleviate pain at this time. For full assessment see EMR. Discharge plans uncertain at this time. Will continue to monitor.
[2017-05-02] MEDS: ONDANSETRON INJ 2 MG/ML 2 ML VIAL IV PRN ×3 (01:57→15:34)
[2017-05-02] MEDS: SODIUM CHLORIDE 0.9% 1000ML 1,000 ML IV SCH ×2 (01:57→11:55)
[2017-05-02] MEDS ORDERED: INSULIN ASPART 100 UNITS/ML 3 ML PEN SC ONE (02:00)
[2017-05-02] MEDS: PROCHLORPERAZINE MALEATE 10 MG TAB PO PRN (04:15)
[2017-05-02] MEDS: INSULIN ASPART 100 UNITS/ML 3 ML PEN SC SCH ×4 (06:30→20:34)
[2017-05-02 07:30] VITALS: BP 166/98; PULSE 70; TEMP 36.7; O2SAT 100
[2017-05-02] MEDS: LEVETIRACETAM 500 MG TAB PO SCH ×2 (08:57→20:35)
[2017-05-02] MEDS: DULOXETINE (CYMBALTA) 30 MG CAP PO SCH (08:57)
[2017-05-02] MEDS: PANTOprazole SOD 40 MG TAB PO SCH ×2 (08:58→20:36)
[2017-05-02] MEDS: AMLODIPINE BESYLATE 5 MG TAB PO SCH (08:58)
[2017-05-02] MEDS: METOPROLOL TARTRATE 25 MG TAB PO SCH ×2 (08:58→20:36)
[2017-05-02] MEDS: HEPARIN SOD 5000 UNIT/0.5 ML CARP SQ SCH ×2 (09:00→20:42)
[2017-05-02] MEDS: CHECK FENTANYL PATCH PLACEMENT SCH ×2 (09:01→15:37)
[2017-05-02 15:39] VITALS: BP 156/94; PULSE 72; TEMP 36.8; O2SAT 100
[2017-05-02 15:52] VITALS: BMI 25.6
--- NOTE | 2017-05-02 15:57 | NUR ---
DIABETES: Pt seen for BS < 70mg/dl. See DM network interventions. Addendum: 05/02/17 at 1557 by Tsering Castro RN Amended: Links added.
[2017-05-02 16:00] VITALS: O2SAT 100
--- NOTE | 2017-05-02 16:37 | NUR ---
Patient identified with a LOS >5days. 51 year old male admitted with uncontrolled DM who lives with his in their apartment in [place]. Patient's is supportive. Patient is active with [facility] and would like them to continue. Will follow for discharge planning.
--- NOTE | 2017-05-02 19:03 | Progress Note ---
Internal Med Progress Note Date of Service: May 02, 2017. Provider Documentation: SUBJECTIVE: Patient continues to report having vomiting. Have discussed with patient about removing further narcotic medications to alleviate gastroparesis induced vomiting that could be exacerbated by narcotic medications. But patient insists that he needs fentanyl and concerned that he will be in bad pain without it. Have discussed the situation with pain management service whose advice is to have patient get gastric stimulator follow up in [facility] in [facility]. Patient reports that he does not want hospital to hospital transfer. He prefers to make arrangements for possible discharge tomorrow and traveling there on his own pace. OBJECTIVE: General Appearance: no acute distress Head: normocephalic, atraumatic Eyes: normal inspection, EOMI, sclerae normal ENT: hearing grossly normal, pharynx normal Neck: supple, no JVD, trachea midline Respiratory/Chest: lungs clear, no respiratory distress, no accessory muscle use Cardiovascular: regular rate, rhythm, no edema, no gallop, no JVD, normal peripheral pulses Abdomen/GI: soft, bowel sounds audible Back: lumbar incision healed; no erythema or drainage Extremities/Musculoskelatal: bandage over right foot, no edema Neurologic/Psych: no motor/sensory deficits (motor strength upper and lower extremities grossly intact), oriented x 3 ASSESSMENT & PLAN: 51 year old male with PMH of uncontrolled, insulin-dependent DM2 with multiple complications including severe gastroparesis s/p gastric stimulator insertion, severe peripheral neuropathy on chronic pain medications - presents with worsening nausea/vomiting/dehydration DM2 - labile glucose levels on admission initially glucose greater than 400 and needed insulin drip currently managed with subcutaneous insulin and pharmacy glycemic consultation Diabetic Neuropathy had been followed with pain management serviceand was then placed on fentanyl patch Keppra to 1000 mg by mouth twice a day to further diminish neuropathic type pain as well as initiation of Cymbalta 30 mg by mouth daily as per pain management from 04/26/17 PRN dilaudid was stopped on 04/30/17 and Percocet stopped on 05/01/17 to avoid worsening gastroparesis symptoms of nausea and vomiting History of gastroparesis from diabetes he has a gastric pacemaker - will need adjustment in settings at [facility] in [facility] has been on IV Fosaprepitant dimeglumine (Emend) on this admission continue Compazine Hold IV fluids for now, check electrolytes - has been hypokalemic and hypomagnesemic on this admission NUTRITION status: history of weight loss from poor oral intake due to abdominal discomfort and vomiting Acute Kidney Injury superimposed on CKD stage 3, Acute Kidney Injury resolved creatinine 1.9 on admission and now back to baseline 1.3 HYPERTENSION history BP low upon arrival to ED- probably due to volume depletion. BP elevated after receiving IV fluids. Hold HCTZ because of dehydration Restarting home oral medications of amlodipine, metoprolol tartrate, lisinopril. ULCERATION RIGHT GREAT TOE Has ulcer dorsum of right great toe which patient attributes to crawling on bathroom floor when he has nausea and vomiting. Has bandage over the area LUNG CANCER Adenocarcinoma of lung, s/p resection and chemo. No apparent recurrence per CT chest. Has f/u appt with Medical Oncology. SEIZURE DISORDER Continue levetiracetam. GENERAL DEBILITATION is ambulatory VTE PROPHYLAXIS SQ heparin. Ambulate as able. Disposition: Patient planning to follow up at [facility] in [facility] for gastric stimulator re-evaluation Vital Signs: Date Time Temp Pulse Resp B/P (MAP) Pulse Ox O2 Delivery O2 Flow Rate FiO2 05/02/17 16:00 100 Room Air 05/02/17 15:39 36.8 72 18 156/94 (114) 100 Room Air 05/02/17 08:00 Room Air 05/02/17 07:30 36.7 70 16 166/98 (120) 100 05/02/17 00:00 Room Air 05/01/17 23:09 36.5 75 19 121/78 (92) 99 Room Air Lab Results: Results Past 24 Hours Test 05/01/17 19:59 05/02/17 01:50 05/02/17 07:59 05/02/17 11:58 Range/Units Bedside Glucose 203 204 75 120 70-99 mg/dl Test 05/02/17 15:32 05/02/17 16:40 Range/Units Bedside Glucose 72 85 70-99 mg/dl
[2017-05-02] MEDS: INSULIN GLARGINE SOLOSTAR 100 UNITS/ML 3 ML PEN SC SCH (20:42)
[2017-05-02 23:39] VITALS: BP 177/103; PULSE 80; TEMP 35.9; O2SAT 100
[2017-05-03] VITALS (7 sets, daily range): BP systolic 123–189; BP diastolic 82–102; PULSE 73–77; TEMP 36.8–37.1; O2SAT 97–100
[2017-05-03] MEDS: CHECK FENTANYL PATCH PLACEMENT SCH ×2 (00:49→08:00)
--- NOTE | 2017-05-03 04:20 | NUR ---
ID: Pt A/Ox4. Independent in room and ambulates in hallways. VSS on room air. PICC line intact to LUE and locked. Pt complains of nausea and reports vomiting through out day. Pt currently sitting in bed and eating combos. Reports being in terrible pain, but still understanding and agreeable to to holding off pain meds to help alleviate nausea. For full assessment see EMR. Pt from home with , discharge to home with home health, date uncertain at this time. Call amaya within reach. Will continue to monitor.
[2017-05-03 06:27] LABS: ALBUMIN 2.6 gm/dl (3.4-5.0); CREATININE 1.17 mg/dl (0.60-1.40); POTASSIUM 4.1 mmol/L (3.5-5.1); TOTAL PROTEIN 5.6 gm/dl (6.4-8.2)
[2017-05-03] MEDS: INSULIN ASPART 100 UNITS/ML 3 ML PEN SC SCH ×4 (06:30→20:44)
--- NOTE | 2017-05-03 08:00 | NUR ---
A: pt alert and oriented x4. he is independent in room and ambulates in [place]. pt on room air. respirations unlabored w/ activity. belly soft, ND and slightly tender to palpation . he is voiding w/o issue in BR. BM yesterday. no edema. ROWDY PICC intact and flushing . site is Heparin locked. Fentanyl patch intact to KLAUDIA. optifoam intact to R great toe where ulceration is present. pt c/o generalized pain at all times. he is ordering and attempting to consume large amounts of food and then vomiting . pt did vomit this AM after attempting to consume 2 pieces of bahraini toast and 2 pieces regular toast. pt vomited and then consumed large amount of chocolate milk. pt medicated as per jul for nausea and encouraged to slow with eating and also to consider clears for lunch. pt also has chewing tobacco at bedside . upon asking pt about chewing tobacco he stated he didn't 'chew it much but chews 'tea bags more than tobacco'. notified MD regarding this information. will continue care.
[2017-05-03] MEDS: ONDANSETRON INJ 2 MG/ML 2 ML VIAL IV PRN (08:33)
[2017-05-03] MEDS: METOPROLOL TARTRATE 25 MG TAB PO SCH ×2 (08:38→20:43)
[2017-05-03] MEDS: AMLODIPINE BESYLATE 5 MG TAB PO SCH ×2 (08:39→08:40)
[2017-05-03] MEDS: LISINOPRIL 40 MG TAB PO SCH (08:39)
[2017-05-03] MEDS: PANTOprazole SOD 40 MG TAB PO SCH ×2 (08:39→20:44)
[2017-05-03] MEDS: DULOXETINE (CYMBALTA) 30 MG CAP PO SCH (08:39)
[2017-05-03] MEDS: LEVETIRACETAM 500 MG TAB PO SCH ×2 (08:41→20:43)
[2017-05-03] MEDS: PROCHLORPERAZINE MALEATE 10 MG TAB PO PRN (09:18)
[2017-05-03] MEDS: HEPARIN SOD 5000 UNIT/0.5 ML CARP SQ SCH ×2 (09:23→20:37)
--- NOTE | 2017-05-03 11:20 | NUR ---
received call from [facility] regarding pt discharge. nurse states that discharge information was faxed to them yesterday. notified her that pt is not yet discharged . she would like a call when nursing receives discharge order.
--- NOTE | 2017-05-03 12:57 | Pharmacy Progress Note ---
Pharmacy Glycemic Short Note 2 Date of Service May 03, 2017. OUTPATIENT ANTIDIABETIC REGIMEN: * Basaglar 15 units SQ qHS * Humalog SSI (1-10 units with each meal depending on food consumed and BSG) * HbA1c: 7.9% (04/26/17) ASSESSMENT: * Mr. Hamilton received 26 units of insulin yesterday with BSGs ranging from 75- 120 mg/dL in the past 24 hours * Per RN - pt continues to vomit usually in the morning - and snacks over night - pt also uses chewing tobacco?? * Pt has no documented carbs today and BSGs in range * Continue current regimen PLAN FOR INPATIENT GLYCEMIC CONTROL: * Basal insulin * Continue Lantus 18 units SQ HS * Bolus insulin * NovoLog per scale ACHS or Q6hrs while NPO + 0200 accucheck * Goal Range: Low 120 mg/dL - High 160 mg/dL * Correction Factor: 30 mg/dL/unit * Nutritional / Prandial insulin per carb ratio of 1 unit per 10 grams CHO consumed RECOMMENDATIONS FOR DISCHARGE: * Consider increasing Basaglar to 18 units qHS * Continue Humalog per sliding scale
--- NOTE | 2017-05-03 13:22 | NUR ---
Chart reviewed. Acute care continues. Patient will return home with home health. Will follow for discharge planning.
[2017-05-03] MEDS: CLONIDINE HCL 0.1 MG TAB PO PRN (15:25)
--- NOTE | 2017-05-03 16:00 | NUR ---
A: assessment unchanged. pt remains on room air. no sob noted. pt ambulating independently. fentanyl patch intact. pt has not vomited since this AM. he is eating chips from vending machine and is drinking cola. PICC intact and flushing. BP elevated this afternoon. PRN medication given . pt is hopeful for d/c tomorrow. will continue care.
--- NOTE | 2017-05-03 16:20 | Progress Note ---
Internal Med Progress Note Date of Service: May 03, 2017. Provider Documentation: SUBJECTIVE: Patient continues to report having vomiting. Patient's nurse informed me that she had advised patient to eat the meals slowly and in small portions. I have reaffirmed this in discussion with the patient. Patient reports he called [facility] to follow up with the doctor whom the patient had seen in the past in regards to the gastric stimulator but was told that the doctor no longer works there and [facility] gave him a list of numbers for other similar providers. OBJECTIVE: General Appearance: no acute distress Head: normocephalic, atraumatic Eyes: normal inspection, EOMI, sclerae normal ENT: hearing grossly normal, pharynx normal Neck: supple, no JVD, trachea midline Respiratory/Chest: lungs clear, no respiratory distress, no accessory muscle use Cardiovascular: regular rate, rhythm, no edema, no gallop, no JVD, normal peripheral pulses Abdomen/GI: soft, bowel sounds audible Back: lumbar incision healed; no erythema or drainage Extremities/Musculoskelatal: bandage over right foot, no edema Neurologic/Psych: no motor/sensory deficits (motor strength upper and lower extremities grossly intact), oriented x 3 ASSESSMENT & PLAN: 51 year old male with PMH of uncontrolled, insulin-dependent DM2 with multiple complications including severe gastroparesis s/p gastric stimulator insertion, severe peripheral neuropathy on chronic pain medications - presents with worsening nausea/vomiting/dehydration DM2 - labile glucose levels on admission initially glucose greater than 400 and needed insulin drip currently managed with subcutaneous insulin and pharmacy glycemic consultation Diabetic Neuropathy had been followed with pain management service and was then placed on fentanyl patch Keppra to 1000 mg by mouth twice a day to further diminish neuropathic type pain as well as initiation of Cymbalta 30 mg by mouth daily as per pain management from 04/26/17 PRN dilaudid was stopped on 04/30/17 and Percocet stopped on 05/01/17 to avoid worsening gastroparesis symptoms of nausea and vomiting History of gastroparesis from diabetes he has a gastric pacemaker - will need adjustment in settings at [facility] in [place] has been on IV Fosaprepitant dimeglumine (Emend) on this admission continue Compazine Has been hypokalemic and hypomagnesemic on this admission IV fluids held yesterday and so far electrolytes are normal Would continue to watch patient's electrolytes off IV fluids NUTRITION status: history of weight loss from poor oral intake due to abdominal discomfort and vomiting Acute Kidney Injury superimposed on CKD stage 3, Acute Kidney Injury resolved creatinine 1.9 on admission and now reduced to 1.17 HYPERTENSION history BP low upon arrival to ED- probably due to volume depletion. BP elevated after receiving IV fluids. Hold HCTZ because of dehydration Restarted home oral medications of amlodipine, metoprolol tartrate, lisinopril yesterday ULCERATION RIGHT GREAT TOE Has ulcer dorsum of right great toe which patient attributes to crawling on bathroom floor when he has nausea and vomiting. Has bandage over the area LUNG CANCER Adenocarcinoma of lung, s/p resection and chemo. No apparent recurrence per CT chest. Has f/u appt with Medical Oncology. SEIZURE DISORDER Continue levetiracetam. GENERAL DEBILITATION is ambulatory VTE PROPHYLAXIS SQ heparin. Ambulate as able. Disposition:Patient reports he called [facility] to follow up with the doctor the patient had seen in the past in regards to the gastric stimulator but was told that the doctor no longer works there and [facility] gave him a list of numbers for other similar providers. Have spoken with Case management in regards to this issue Vital Signs: Date Time Temp Pulse Resp B/P (MAP) Pulse Ox O2 Delivery O2 Flow Rate FiO2 05/03/17 16:10 123/82 (96) 05/03/17 15:18 36.9 73 18 189/102 (131) 99 Room Air 05/03/17 08:01 36.8 77 18 166/87 (113) 97 Room Air 05/03/17 08:00 100 Room Air 05/03/17 00:00 Room Air 05/02/17 23:39 35.9 80 20 177/103 (127) 100 Room Air Lab Results: Results Past 24 Hours Test 05/02/17 16:40 05/02/17 19:53 05/03/17 05:18 05/03/17 07:59 Range/Units Bedside Glucose 85 100 153 70-99 mg/dl Sodium Level 138 136-145 mmol/L Potassium Level 4.1 3.5-5.1 mmol/L Chloride Level 105 98-107 mmol/L Carbon Dioxide Level 31 21-32 mmol/L Anion Gap 2.0 3-11 mmol/L Blood Urea Nitrogen 7 7-18 mg/dl Creatinine 1.17 0.60-1.40 mg/dl Est Creatinine Clear Calc Drug Dose 72.2 ml/min Estimated GFR () 83.2 Estimated GFR (Non- 71.8 BUN/Creatinine Ratio 5.9 10-20 Random Glucose 129 70-99 mg/dl Calcium Level 8.0 8.5-10.1 mg/dl Magnesium Level 1.4 1.8-2.4 mg/dl Total Bilirubin 0.2 0.2-1 mg/dl Aspartate Amino Transf (AST/SGOT) 9 15-37 U/L Alanine Aminotransferase (ALT/SGPT) 12 12-78 U/L Alkaline Phosphatase 74 45-117 U/L Total Protein 5.6 6.4-8.2 gm/dl Albumin 2.6 3.4-5.0 gm/dl Globulin 3.0 2.5-4.0 gm/dl Albumin/Globulin Ratio 0.9 0.9-2 Test 05/03/17 11:23 Range/Units Bedside Glucose 147 70-99 mg/dl
[2017-05-03] MEDS: INSULIN GLARGINE SOLOSTAR 100 UNITS/ML 3 ML PEN SC SCH (20:36)
[2017-05-03] MEDS: FENTANYL PATCH REMOVE & WASTE SCH (20:45)
[2017-05-03] MEDS: FENTANYL 100 MCG/HR TDSY TD SCH (20:50)
[2017-05-04] MEDS: CHECK FENTANYL PATCH PLACEMENT SCH ×4 (00:05→23:13)
--- NOTE | 2017-05-04 01:50 | NUR ---
ID: A&Ox4. Ambulates independently in room and hallways. PICC intact and locked. Ate a salad at and reported no N/V. Pt to return home with home health at D/C. Will continue to monitor
[2017-05-04 08:23] VITALS: BP 158/91; PULSE 79; TEMP 36.9; O2SAT 100
[2017-05-04] MEDS: ONDANSETRON INJ 2 MG/ML 2 ML VIAL IV PRN ×2 (08:29→18:03)
[2017-05-04] MEDS: PANTOprazole SOD 40 MG TAB PO SCH ×2 (08:31→20:24)
[2017-05-04] MEDS: METOPROLOL TARTRATE 25 MG TAB PO SCH ×2 (08:31→20:24)
[2017-05-04] MEDS: DULOXETINE (CYMBALTA) 30 MG CAP PO SCH (08:31)
[2017-05-04] MEDS: AMLODIPINE BESYLATE 5 MG TAB PO SCH ×2 (08:32)
[2017-05-04] MEDS: LISINOPRIL 40 MG TAB PO SCH (08:32)
[2017-05-04] MEDS: LEVETIRACETAM 500 MG TAB PO SCH ×2 (08:33→20:23)
[2017-05-04 08:50] LABS: ALBUMIN 2.9 gm/dl (3.4-5.0); CALCIUM 8.1 mg/dl (8.5-10.1); CREATININE 1.36 mg/dl (0.60-1.40); TOTAL PROTEIN 6.6 gm/dl (6.4-8.2)
--- NOTE | 2017-05-04 09:11 | NUR ---
a: patient continues to eat meals quickly and vomits after eating. patient was medicated with IV Zofran prior to breakfast, ate breakfast quickly, vomited all of what he ate back up. AM insulin held as BSG was 161 (range is up to 160) and patient vomited all of breakfast. patient encouraged to eat meals slower. call amaya in reach.
[2017-05-04] MEDS: HEPARIN SOD 5000 UNIT/0.5 ML CARP SQ SCH ×2 (09:24→20:20)
[2017-05-04] MEDS: INSULIN ASPART 100 UNITS/ML 3 ML PEN SC SCH ×4 (09:25→20:25)
[2017-05-04] MEDS: MAGNESIUM SULFATE 1GM / D5W 1 GM in PREMIXED IN D5W 100 ML IV SCH ×2 (11:46→12:44)
[2017-05-04 16:05] VITALS: BP 114/74; PULSE 78; TEMP 36.8; O2SAT 99
[2017-05-04 16:54] LABS: POTASSIUM 4.1 mmol/L (3.5-5.1)
--- NOTE | 2017-05-04 18:27 | Progress Note ---
Internal Med Progress Note Date of Service: May 04, 2017. Provider Documentation: SUBJECTIVE: Patient continues to report having vomiting. OBJECTIVE: General Appearance: no acute distress Head: normocephalic, atraumatic Eyes: normal inspection, EOMI, sclerae normal ENT: hearing grossly normal, pharynx normal Neck: supple, no JVD, trachea midline Respiratory/Chest: lungs clear, no respiratory distress, no accessory muscle use Cardiovascular: regular rate, rhythm, no edema, no gallop, no JVD, normal peripheral pulses Abdomen/GI: soft, bowel sounds audible Back: lumbar incision healed; no erythema or drainage Extremities/Musculoskelatal: bandage over right foot, no edema Neurologic/Psych: no motor/sensory deficits (motor strength upper and lower extremities grossly intact), oriented x 3 ASSESSMENT & PLAN: 51 year old male with PMH of uncontrolled, insulin-dependent DM2 with multiple complications including severe gastroparesis s/p gastric stimulator insertion, severe peripheral neuropathy on chronic pain medications - presents with worsening nausea/vomiting/dehydration DM2 - labile glucose levels on admission initially glucose greater than 400 and needed insulin drip currently managed with subcutaneous insulin and pharmacy glycemic consultation Diabetic Neuropathy had been followed with pain management service and was then placed on fentanyl patch Keppra to 1000 mg by mouth twice a day to further diminish neuropathic type pain as well as initiation of Cymbalta 30 mg by mouth daily as per pain management from 04/26/17 PRN dilaudid was stopped on 04/30/17 and Percocet stopped on 05/01/17 to avoid worsening gastroparesis symptoms of nausea and vomiting History of gastroparesis from diabetes he has a gastric pacemaker - will need adjustment in settings at [facility] in [facility] has been on IV Fosaprepitant dimeglumine (Emend) on this admission continue Compazine Has been hypokalemic and hypomagnesemic on this admission Magnesium 1.5 on 05/04/17 and repleted with IV magnesium NUTRITION status: history of weight loss from poor oral intake due to abdominal discomfort and vomiting Acute Kidney Injury superimposed on CKD stage 3, Acute Kidney Injury has been resolving compared to admission creatinine HYPERTENSION history BP low upon arrival to ED- probably due to volume depletion. BP elevated after receiving IV fluids. Hold HCTZ because of dehydration continue home oral medications of amlodipine, metoprolol tartrate, lisinopril as tolerated ULCERATION RIGHT GREAT TOE Has ulcer dorsum of right great toe which patient attributes to crawling on bathroom floor when he has nausea and vomiting. Has bandage over the area LUNG CANCER Adenocarcinoma of lung, s/p resection and chemo. No apparent recurrence per CT chest. Has f/u appt with Medical Oncology. SEIZURE DISORDER Continue levetiracetam. GENERAL DEBILITATION is ambulatory VTE PROPHYLAXIS SQ heparin. Ambulate as able. Disposition:Patient reports that he found alternate center that performs gastric stimulator but appointment is in the beginning of June 2017. Patient will try to see by tomorrow if he will feel ready to be discharged Vital Signs: Date Time Temp Pulse Resp B/P (MAP) Pulse Ox O2 Delivery O2 Flow Rate FiO2 05/04/17 16:05 36.8 78 17 114/74 (87) 99 Room Air 05/04/17 16:00 Room Air 05/04/17 08:23 36.9 79 18 158/91 (113) 100 Room Air 05/04/17 08:00 Room Air 05/04/17 00:18 Room Air 05/03/17 23:00 37.1 73 18 165/96 (119) 100 Room Air 05/03/17 20:43 75 166/96 (119) 05/03/17 20:30 Room Air Lab Results: Results Past 24 Hours Test 05/03/17 19:47 05/04/17 07:45 05/04/17 08:11 05/04/17 11:34 Range/Units Bedside Glucose 160 161 199 70-99 mg/dl Sodium Level 135 136-145 mmol/L Potassium Level 4.0 3.5-5.1 mmol/L Chloride Level 101 98-107 mmol/L Carbon Dioxide Level 30 21-32 mmol/L Anion Gap 4.0 3-11 mmol/L Blood Urea Nitrogen 11 7-18 mg/dl Creatinine 1.36 0.60-1.40 mg/dl Est Creatinine Clear Calc Drug Dose 62.2 ml/min Estimated GFR () 69.3 Estimated GFR (Non- 59.8 BUN/Creatinine Ratio 8.2 10-20 Random Glucose 158 70-99 mg/dl Calcium Level 8.1 8.5-10.1 mg/dl Magnesium Level 1.5 1.8-2.4 mg/dl Total Bilirubin 0.3 0.2-1 mg/dl Aspartate Amino Transf (AST/SGOT) 11 15-37 U/L Alanine Aminotransferase (ALT/SGPT) 15 12-78 U/L Alkaline Phosphatase 87 45-117 U/L Total Protein 6.6 6.4-8.2 gm/dl Albumin 2.9 3.4-5.0 gm/dl Globulin 3.7 2.5-4.0 gm/dl Albumin/Globulin Ratio 0.8 0.9-2 Test 05/04/17 16:27 05/04/17 16:47 Range/Units Potassium Level 4.1 3.5-5.1 mmol/L Magnesium Level 1.9 1.8-2.4 mg/dl Bedside Glucose 97 70-99 mg/dl
[2017-05-04] MEDS: INSULIN GLARGINE SOLOSTAR 100 UNITS/ML 3 ML PEN SC SCH (20:19)
[2017-05-04] MEDS: PROCHLORPERAZINE MALEATE 10 MG TAB PO PRN (20:25)
[2017-05-04 23:50] VITALS: BP 165/87; PULSE 75; TEMP 36.6; O2SAT 98
--- NOTE | 2017-05-05 03:38 | NUR ---
ID: Patient alert & oriented x 4. VSS. No c/o pain. Patient reports intermittent nausea/retching. No emesis visualized. OOB independently with steady gait. D/C plan for return home with home health. D/C date uncertain @ this time. Will continue to monitor.
[2017-05-05 08:21] VITALS: BP 154/80; PULSE 80; TEMP 36.6; O2SAT 98
[2017-05-05] MEDS: ONDANSETRON INJ 2 MG/ML 2 ML VIAL IV PRN ×2 (08:43→18:24)
[2017-05-05] MEDS: PANTOprazole SOD 40 MG TAB PO SCH ×2 (08:44→20:35)
[2017-05-05] MEDS: METOPROLOL TARTRATE 25 MG TAB PO SCH ×2 (08:44→20:34)
[2017-05-05] MEDS: DULOXETINE (CYMBALTA) 30 MG CAP PO SCH (08:44)
[2017-05-05] MEDS: AMLODIPINE BESYLATE 5 MG TAB PO SCH ×2 (08:44→08:45)
[2017-05-05] MEDS: LEVETIRACETAM 500 MG TAB PO SCH ×2 (08:44→20:34)
[2017-05-05] MEDS: CHECK FENTANYL PATCH PLACEMENT SCH ×2 (08:45→18:24)
[2017-05-05] MEDS: LISINOPRIL 40 MG TAB PO SCH (08:45)
[2017-05-05] MEDS: INSULIN ASPART 100 UNITS/ML 3 ML PEN SC SCH ×4 (08:55→20:51)
[2017-05-05] MEDS: HEPARIN SOD 5000 UNIT/0.5 ML CARP SQ SCH (08:56)
--- NOTE | 2017-05-05 10:42 | Pharmacy Progress Note ---
Pharmacy Glycemic Sign Off Nt Date of Service May 05, 2017. Assessment & Plan ASSESSMENT: * Pharmacy was consulted by Dr Barfield on 04/26/17 for glycemic control and to write orders per [facility] inpatient glycemic control protocol. * Major changes made by pharmacy to antidiabetic regimen include: * Increase to basal insulin after drip transition * Setting Novolog after drip transition * Patient has been receiving/requiring 20-30 units of insulin per day for adequate glycemic control * BSGs ranging 85 - 250 mg/dl * Regimen has not required any adjustments for 5 days * Pt continues to snack through the night and vomit in the mornings which sometimes can cause his fasting to be 75-250 * Despite this - BSGs continue to remain stable otherwise throughout the day * Do not anticipate further changes in patient status that would quickly deteriorate glycemic control * Please see recommendations for outpatient antidiabetic regimen below. PLAN FOR INPATIENT GLYCEMIC CONTROL: No changes needed to current regimen. * Continue basal insulin with Lantus 18 units SQ HS * Continue NovoLog per scale ACHS/Q6hrs while NPO * Goal range = 120 - 160 mg/dl * CF = 30 mg/dl/unit * CR = 1 unit for ever 10 g CHO consumed * A1c added to discharge instructions to be communicated to PCP. * Pharmacy is signing off of glycemic consult and will no longer be making adjustments to inpatient regimen. Please feel free to re-consult if needed. Thank you. DISCHARGE RECOMMENDATIONS: * A1c 7.9 % on 04/26/17 * Consider increasing Basaglar to 18 units qHS * Continue Humalog per sliding scale
[2017-05-05] MEDS: PROCHLORPERAZINE MALEATE 10 MG TAB PO PRN (12:50)
[2017-05-05 14:57] VITALS: BP 117/77; PULSE 75; TEMP 36.9; O2SAT 99
[2017-05-05] MEDS ORDERED: LOPERAMIDE HCL 2 MG CAP PO PRN (16:45)
--- NOTE | 2017-05-05 18:20 | Progress Note ---
Internal Med Progress Note Date of Service: May 05, 2017. Provider Documentation: SUBJECTIVE: Patient continues to report having vomiting. OBJECTIVE: General Appearance: no acute distress Head: normocephalic, atraumatic Eyes: normal inspection, EOMI, sclerae normal ENT: hearing grossly normal, pharynx normal Neck: supple, no JVD, trachea midline Respiratory/Chest: lungs clear, no respiratory distress, no accessory muscle use Cardiovascular: regular rate, rhythm, no edema, no gallop, no JVD, normal peripheral pulses Abdomen/GI: soft, bowel sounds audible Back: lumbar incision healed; no erythema or drainage Extremities/Musculoskelatal: bandage over right foot, no edema Neurologic/Psych: no motor/sensory deficits (motor strength upper and lower extremities grossly intact), oriented x 3 ASSESSMENT & PLAN: 51 year old male with PMH of uncontrolled, insulin-dependent DM2 with multiple complications including severe gastroparesis s/p gastric stimulator insertion, severe peripheral neuropathy on chronic pain medications - presents with worsening nausea/vomiting/dehydration DM2 - labile glucose levels on admission initially glucose greater than 400 and needed insulin drip pharmacy consultation signed off on 05/05/17: Continue basal insulin with Lantus 18 units SQ HS Diabetic Neuropathy had been followed with pain management service and was then placed on fentanyl patch Keppra to 1000 mg by mouth twice a day to further diminish neuropathic type pain as well as initiation of Cymbalta 30 mg by mouth daily as per pain management from 04/26/17 PRN dilaudid was stopped on 04/30/17 and Percocet stopped on 05/01/17 to avoid worsening gastroparesis symptoms of nausea and vomiting History of gastroparesis from diabetes he has a gastric pacemaker - will need adjustment in a medical center that specializes in this had been on IV Fosaprepitant dimeglumine (Emend) on this admission continue Compazine Reports of diarrhea has had negative infectious stool studies on this admission will start loperamide NUTRITION status: history of weight loss from poor oral intake due to abdominal discomfort and vomiting Has been hypokalemic and hypomagnesemic on this admission from GI losses Acute Kidney Injury superimposed on CKD stage 3, Acute Kidney Injury has been resolving compared to admission creatinine HYPERTENSION history BP low upon arrival to ED- probably due to volume depletion. BP increased after receiving IV fluids. Hold HCTZ because of dehydration continue home oral medications of amlodipine, metoprolol tartrate, lisinopril as tolerated ULCERATION RIGHT GREAT TOE Has ulcer dorsum of right great toe which patient attributes to crawling on bathroom floor when he has nausea and vomiting. Has bandage over the area LUNG CANCER Adenocarcinoma of lung, s/p resection and chemo. No apparent recurrence per CT chest. Has f/u appt with Medical Oncology. SEIZURE DISORDER No active seizures in this hospital admission. Continue levetiracetam. VTE PROPHYLAXIS SQ heparin. Ambulate as able. Disposition: Patient reports that he found alternate center that performs gastric stimulator appointment is in the beginning of June 2017 Patient reports today that he is not ready for hospital discharge because of vomiting and diarrhea and his cannot pick him up because she is being evaluated in a hospital as well When ready for hospital discharge patient has close follow up date on 05/09/2017 1:15 PM Bran Burgess MD [facility] Vital Signs: Date Time Temp Pulse Resp B/P (MAP) Pulse Ox O2 Delivery O2 Flow Rate FiO2 05/05/17 15:20 Room Air 05/05/17 14:57 36.9 75 20 117/77 (90) 99 Room Air 05/05/17 08:21 36.6 80 18 154/80 (104) 98 Room Air 05/05/17 08:00 Room Air 05/05/17 00:10 Room Air 05/04/17 23:50 36.6 75 18 165/87 (113) 98 Room Air 05/04/17 20:00 Room Air Lab Results: Results Past 24 Hours Test 05/04/17 20:00 05/05/17 08:10 05/05/17 11:44 05/05/17 16:30 Range/Units Bedside Glucose 154 249 178 292 70-99 mg/dl
[2017-05-05] MEDS: FENTANYL PATCH REMOVE & WASTE SCH (20:48)
[2017-05-05] MEDS: FENTANYL 100 MCG/HR TDSY TD SCH (20:48)
[2017-05-05] MEDS: INSULIN GLARGINE SOLOSTAR 100 UNITS/ML 3 ML PEN SC SCH ×2 (21:00→22:16)
[2017-05-05 23:19] VITALS: BP 172/94; PULSE 76; TEMP 37.2; O2SAT 100
--- NOTE | 2017-05-05 23:30 | NUR ---
A: MD contacted due to pt complaining of "unbearable" pain. pain is generalized, but more severe in arms and legs. order obtained for PRN Roxicodone.
--- NOTE | 2017-05-06 | NUR ---
A/ID: pt alert and oriented X4, sitting in bed at this time. VSS on room air. denies chest pain and SOB. lung sounds clear throughout. pt OOB independently in the room. PRN Roxicodone given for generalized pain. pt reporting frequent nausea. pt plans to return home with home health. potential discharge in 1-2 days. call amaya within reach. will continue to monitor.
[2017-05-06] MEDS: OXYCODONE HCL IR 5 MG TAB (IMMEDIATE RELEASE) PO PRN ×3 (00:06→12:24)
[2017-05-06] MEDS: CHECK FENTANYL PATCH PLACEMENT SCH ×2 (00:07→07:39)
[2017-05-06 04:23] VITALS: BP 117/78; PULSE 76; TEMP 37.5; O2SAT 100
[2017-05-06 05:55] LABS: HEMATOCRIT 26.5 % (42-52); HEMOGLOBIN 8.9 g/dL (14.0-18.0); MEAN CELL VOLUME 85.5 fL (80-100); MEAN CORPUSCULAR HEMOGLOBIN 28.7 pg (25-34); MEAN CORPUSCULAR HGB CONC 33.6 g/dl (32-36); MEAN PLATELET VOLUME 9.1 fL (7.4-10.4); PLATELET COUNT 238 K/uL (130-400); RED CELL DISTRIBUTION WIDTH CV 14.9 % (11.5-14.5); RED CELL DISTRIBUTION WIDTH SD 46.7 fL (36.4-46.3); WHITE BLOOD COUNT 5.62 K/uL (4.8-10.8)
[2017-05-06 06:33] LABS: CALCIUM 8.2 mg/dl (8.5-10.1); CREATININE 1.42 mg/dl (0.60-1.40); POTASSIUM 4.1 mmol/L (3.5-5.1)
[2017-05-06 06:36] LABS: TOTAL PROTEIN 6.8 gm/dl (6.4-8.2)
[2017-05-06 07:14] VITALS: BP 148/80; PULSE 77; TEMP 37.4; O2SAT 100
[2017-05-06] MEDS: AMLODIPINE BESYLATE 5 MG TAB PO SCH ×2 (07:37→07:38)
[2017-05-06] MEDS: LISINOPRIL 40 MG TAB PO SCH (07:38)
[2017-05-06] MEDS: PANTOprazole SOD 40 MG TAB PO SCH ×2 (07:38→19:45)
[2017-05-06] MEDS: DULOXETINE (CYMBALTA) 30 MG CAP PO SCH (07:39)
[2017-05-06] MEDS: LEVETIRACETAM 500 MG TAB PO SCH ×2 (07:39→19:45)
[2017-05-06] MEDS: METOPROLOL TARTRATE 25 MG TAB PO SCH ×2 (07:39→19:45)
[2017-05-06] MEDS: INSULIN ASPART 100 UNITS/ML 3 ML PEN SC SCH ×3 (08:33→21:17)
[2017-05-06] MEDS: MAGNESIUM SULFATE 1GM / D5W 1 GM in PREMIXED IN D5W 100 ML IV SCH ×4 (09:00→12:05)
[2017-05-06 11:11] VITALS: BP 110/69; PULSE 69; TEMP 36.2; O2SAT 100
[2017-05-06 13:56] LABS: CALCIUM 8.2 mg/dl (8.5-10.1); CREATININE 1.62 mg/dl (0.60-1.40)
[2017-05-06] MEDS ORDERED: D5W AND 1/2NSS 1,000 ML IV SCH (15:15)
--- NOTE | 2017-05-06 15:23 | NUR ---
A- During shift change report Dr Bagley approached this RN and said he found patient sweating profusely and very lethargic. Entered patient's room and found him very sweaty/clammy and hard to awaken. Blood sugar taken with a result of 19. D5 Dextrose pushed and D5 1/2 NS started at 100ml/hr. Stat EKG ordered. Repeat blood sugar showed a result of 89. Informed by Dr Bagley that he plans to transfer patient to Telemetry.
[2017-05-06 16:17] VITALS: BP 128/80; PULSE 64; O2SAT 100
--- NOTE | 2017-05-06 16:24 | Progress Note ---
Internal Med Progress Note Date of Service: May 06, 2017. Provider Documentation: SUBJECTIVE: Patient had pain symptoms overnight and was given percoet. Patient was seen this AM and discussed with plans to give him IV serum magnesium. Patient completed IV magnesium and found to be diaphoretic and lethargic in the afternoon after lunch time. Patient was found to have serum glucose of 19. He was given Dextrose and repeat glucose was 89. Patient had negative troponin. Transferred to telemetry for further monitor while on D5 1/2 normal saline. Patient reports that he had vomited his lunch earlier OBJECTIVE: General: now eating dinner, awake and alert Lungs: CTABL Heart: Regular rate Abdomen: soft, + bowel sounds Extremities: no edema ASSESSMENT & PLAN: 51 year old male with PMH of uncontrolled, insulin-dependent DM2 with multiple complications including severe gastroparesis s/p gastric stimulator insertion, severe peripheral neuropathy on chronic pain medications - presents with worsening nausea/vomiting/dehydration DM2 - labile glucose levels on admission initially glucose greater than 400 and needed insulin drip pharmacy consultation signed off on 05/05/17: Continue basal insulin with Lantus 18 units SQ HS was hypoglycemic on 05/06/17 to serum glucose of 19. Dextrose and repeat glucose was 89. Patient had negative troponin. Transferred to telemetry for further monitor while on D5 1/2 normal saline. All insulin held for now. On D5 1/2 normal saline because lot of insulin in his system from today. Will need to be restarted when serum glucose stable Requesting pharmacy consult to assist with preventing hypoglycemia Diabetic Neuropathy had been followed with pain management service and was then placed on fentanyl patch Keppra to 1000 mg by mouth twice a day to further diminish neuropathic type pain as well as initiation of Cymbalta 30 mg by mouth daily as per pain management from 04/26/17 Patient's narcotics have been cut back to prevent worsening Nausea. Fentanyl Patch changed from 100 mcg to 75 mcg patches on 05/06/17 History of gastroparesis from diabetes had been on IV Fosaprepitant dimeglumine (Emend) on this admission continue antiemetics he has a gastric pacemaker - will need adjustment in a medical center that specializes in this, in the past he followed in [facility] but was told that the specialist doctor who saw him before had left the service, patient reports that he found alternate center that performs gastric stimulator appointment is in the beginning of June 2017 in [place], [place] which his had helped him made appointment Reports of diarrhea has had negative infectious stool studies on this admission hold off on loperamide because it is unclear whether this may worse abdominal pain NUTRITION status: history of weight loss from poor oral intake due to abdominal discomfort and vomiting Has been hypokalemic and hypomagnesemic on this admission from GI losses Acute Kidney Injury superimposed on CKD stage 3, Acute Kidney Injury improved with IV fluids and now creatinine is rising while on PO hydration/diet only. Will need IV fluids for now HYPERTENSION history Hold HCTZ because of dehydration continue home oral medications of amlodipine, metoprolol tartrate, lisinopril as tolerated ULCERATION RIGHT GREAT TOE Has ulcer dorsum of right great toe which patient attributes to crawling on bathroom floor when he has nausea and vomiting. Has bandage over the area LUNG CANCER Adenocarcinoma of lung, s/p resection and chemo. No apparent recurrence per CT chest. Has f/u appt with Medical Oncology. SEIZURE DISORDER No active seizures in this hospital admission. Continue levetiracetam. VTE PROPHYLAXIS SQ heparin. Disposition: Patient reports that he found alternate center that performs gastric stimulator appointment is in the beginning of June 2017 in [place], [place] which his had helped him made appointment When ready for hospital discharge patient has close follow up date on 05/09/2017 1:15 PM Bran Burgess MD [facility] Vital Signs: Date Time Temp Pulse Resp B/P (MAP) Pulse Ox O2 Delivery O2 Flow Rate FiO2 05/06/17 16:17 64 16 128/80 (96) 100 Room Air 05/06/17 11:11 36.2 69 20 110/69 (83) 100 05/06/17 08:15 Room Air 05/06/17 07:14 37.4 77 20 148/80 (102) 100 Room Air 05/06/17 04:23 37.5 76 20 117/78 (91) 100 Room Air 05/06/17 00:00 Room Air 05/05/17 23:19 37.2 76 20 172/94 (120) 100 Room Air 05/05/17 20:00 Room Air Lab Results: Results Past 24 Hours Test 05/05/17 20:32 05/05/17 21:52 05/06/17 05:18 05/06/17 07:42 Range/Units Bedside Glucose 77 175 104 70-99 mg/dl White Blood Count 5.62 4.8-10.8 K/uL Red Blood Count 3.10 4.7-6.1 M/uL Hemoglobin 8.9 14.0-18.0 g/dL Hematocrit 26.5 42-52 % Mean Corpuscular Volume 85.5 80-100 fL Mean Corpuscular Hemoglobin 28.7 25-34 pg Mean Corpuscular Hemoglobin Concent 33.6 32-36 g/dl RDW Standard Deviation 46.7 36.4-46.3 fL RDW Coefficient of Variation 14.9 11.5-14.5 % Platelet Count 238 130-400 K/uL Mean Platelet Volume 9.1 7.4-10.4 fL Sodium Level 137 136-145 mmol/L Potassium Level 4.1 3.5-5.1 mmol/L Chloride Level 103 98-107 mmol/L Carbon Dioxide Level 31 21-32 mmol/L Anion Gap 3.0 3-11 mmol/L Blood Urea Nitrogen 10 7-18 mg/dl Creatinine 1.42 0.60-1.40 mg/dl Est Creatinine Clear Calc Drug Dose 59.5 ml/min Estimated GFR () 65.8 Estimated GFR (Non- 56.8 BUN/Creatinine Ratio 7.2 10-20 Random Glucose 81 70-99 mg/dl Calcium Level 8.2 8.5-10.1 mg/dl Magnesium Level 1.3 1.8-2.4 mg/dl Total Bilirubin 0.2 0.2-1 mg/dl Aspartate Amino Transf (AST/SGOT) 9 15-37 U/L Alanine Aminotransferase (ALT/SGPT) 13 12-78 U/L Alkaline Phosphatase 80 45-117 U/L Total Protein 6.8 6.4-8.2 gm/dl Albumin 3.0 3.4-5.0 gm/dl Globulin 3.8 2.5-4.0 gm/dl Albumin/Globulin Ratio 0.8 0.9-2 Test 05/06/17 11:46 05/06/17 13:19 05/06/17 15:01 05/06/17 15:12 Range/Units Bedside Glucose 144 19 89 70-99 mg/dl Sodium Level 137 136-145 mmol/L Potassium Level 4.0 3.5-5.1 mmol/L Chloride Level 104 98-107 mmol/L Carbon Dioxide Level 29 21-32 mmol/L Anion Gap 4.0 3-11 mmol/L Blood Urea Nitrogen 12 7-18 mg/dl Creatinine 1.62 0.60-1.40 mg/dl Est Creatinine Clear Calc Drug Dose 52.2 ml/min Estimated GFR () 56.1 Estimated GFR (Non- 48.4 BUN/Creatinine Ratio 7.5 10-20 Random Glucose 104 70-99 mg/dl Calcium Level 8.2 8.5-10.1 mg/dl Magnesium Level 2.5 1.8-2.4 mg/dl Troponin I < 0.015 0-0.045 ng/ml Test 05/06/17 16:21 Range/Units Bedside Glucose 101 70-99 mg/dl
--- NOTE | 2017-05-06 16:30 | NUR ---
Patient received in to room 216. Patient is drowsy, but answers orientation questions appropriately. BSG is now 101. Patient is asking for pain medications in addition to his fentanyl patch. There is an order to place his patch on hold. Patient is upset by this and is requesting to speak with the doctor. Notified Dr. Bagley. Patient is sitting at the edge of the bed. He fell asleep with his head on the bedside table. Myself, the doctor, and the practical nursing instructor all requested that he lay back so he does not fall asleep and fall OOB. He adamantly refused. Fall education provided. Bed alarm is set. Call amaya is in reach. VS stable. Addendum: 05/06/17 at 1653 by Christian Lopez RN Patient found to have +1 BLE pitting edema. Yellow socks placed on patient. Changed dressing on patient's right great toe.
[2017-05-06] MEDS: FENTANYL PATCH REMOVE & WASTE SCH (16:31)
[2017-05-06] MEDS ORDERED: SUMATRIPTAN SUCCINATE 25 MG TAB PO PRN (16:45)
[2017-05-06] MEDS ORDERED: FENTANYL 75 MCG/HR TDSY TD SCH (17:00)
[2017-05-06 19:15] VITALS: BP 189/99; PULSE 68; TEMP 34.8; O2SAT 97
--- NOTE | 2017-05-06 20:00 | NUR ---
A I/D:PATIENT AWAKE, ALERT AND ORIENTED X4-PATIENT DENIES PAIN, SOB, DIZZINESS OR NAUSEA AT THIS TIME-SBP 180S-PM MEDS GIVEN-FEATHER CURLING MACHINE OPERATOR DISPLAYS SR HR 60S-SEE EMR FOR COMPLETE TRAFFIC MANAGER-ABD SOFT, NONTENDER WITH +BS-PATIENT TOLERATING DIET-SKIN APPEARS WARM, DRY AND INTACT WITH NO BLE EDEMA NOTED AND +PALPABLE PULSES PRESENT-PATIENT DENIES THE URGE TO VOID AT THIS TIME-PATIENT TURNED AND REPOSITIONED WITH SKIN CARE-DBS HEARD-FENTANYL PATCH PRESENT ON LEFT UPPER ARM-LEFT ARM SINGLE LUMEN PICC INTACT AND FLUSHED WITHOUT DIFFICULTY-URP=[id number] MEDICATED WITH 4 UNITS SC NOVOLOG ACCORDING TO CORRECTIVE SCALE-PATIENT APPEARS CALM AND COMFORTABLE IN BED WITH CALL PADILLA IN REACH-DISCHARGE PLANNING UNKNOWN AT THIS TIME-RN WILL CONTINUE TO CLOSELY MONITOR
[2017-05-06 23:05] VITALS: BP 134/80; PULSE 67; TEMP 36.4; O2SAT 99
[2017-05-07] VITALS (7 sets, daily range): BP systolic 104–176; BP diastolic 69–103; PULSE 70–78; TEMP 36.6–37; O2SAT 98–100
--- NOTE | 2017-05-07 | NUR ---
A:VSS-DRILLING ENGINEERING MANAGER DISPLAYS SR HR 60S-SEE EMR FOR COMPLETE WINDOWS CONSULTANT-DBS HEARD-SAFETY MAINTAINED
--- NOTE | 2017-05-07 02:30 | NUR ---
A:PATIENT OOB WITH ASSIST X1 AND WALKER TO AMBULATE IN HALLWAYS-PATIENT C/O NAUSEA AND MEDICATED WITH ZOFRAN 4 MG IV FOR COMFORT-PATIENT BACK TO BED AND SAFETY MAINTAINED
[2017-05-07] MEDS: ONDANSETRON INJ 2 MG/ML 2 ML VIAL IV PRN ×2 (02:45→07:50)
--- NOTE | 2017-05-07 04:00 | NUR ---
A:VSS-ASSISTANT CENTER DIRECTOR DISPLAYS SR HR 70S-SEE EMR FOR COMPLETE MAIL HANDLER SORTER-DBS HEARD-SAFETY MAINTAINED
[2017-05-07 04:53] LABS: ALBUMIN 2.5 gm/dl (3.4-5.0); CREATININE 1.3 mg/dl (0.60-1.40); POTASSIUM 4.7 mmol/L (3.5-5.1)
[2017-05-07] MEDS: INSULIN ASPART 100 UNITS/ML 3 ML PEN SC SCH ×4 (07:49→21:00)
[2017-05-07] MEDS: CHECK FENTANYL PATCH PLACEMENT SCH ×3 (07:50→16:21)
--- NOTE | 2017-05-07 08:00 | NUR ---
Patient A+Ox4. He does ask "what happened to me yesterday? Why was I moved to a new room?" NSR on monitor. Denies any CP/pressure/palpitations. BP elevated- patient states it's because of his generalized pain. Pulses palpable; no edema seen. Lung sounds clear. Sats WNL on RA. Patient ate breakfast and then promptly threw up about 300 cc of undigested food. History of gastroparesis. Patient states this happens often. Blood sugar this morning 199. Last BM yesterday. Voiding in restroom without issue. Dressing to right great toe C/D/I. Left upper arm SL PICC line intact- flushes well, + blood return. Explained plan for day. Explained to patient what happened yesterday that caused him to be in a new room. Zofran given for nausea. Call amaya within reach. Will continue to monitor.
[2017-05-07] MEDS: LEVETIRACETAM 500 MG TAB PO SCH ×2 (09:01→20:59)
[2017-05-07] MEDS: AMLODIPINE BESYLATE 5 MG TAB PO SCH ×2 (09:02)
[2017-05-07] MEDS: METOPROLOL TARTRATE 25 MG TAB PO SCH ×2 (09:02→20:59)
[2017-05-07] MEDS: DULOXETINE (CYMBALTA) 30 MG CAP PO SCH (09:02)
[2017-05-07] MEDS: LISINOPRIL 40 MG TAB PO SCH (09:03)
[2017-05-07] MEDS: PANTOprazole SOD 40 MG TAB PO SCH ×2 (09:03→20:58)
--- NOTE | 2017-05-07 11:13 | NUR ---
Chart reviewed. Patient moved to 216. Patient will return home with home health thru [facility]. Case Management to follow for discharge planning.
--- NOTE | 2017-05-07 12:00 | NUR ---
Patient in NAD. VSS. Continues in NSR on monitor. Blood sugar 228. Patient ate some lunch and then threw up about 250 cc of undigested food; resumed eating. Continues to report generalized pain- Dr. Wells aware. He has been walking around the unit independently with his personal rolling walker. No other changes to assessment. Will continue to monitor.
--- NOTE | 2017-05-07 12:06 | Progress Note ---
Internal Med Progress Note Date of Service: May 07, 2017. Provider Documentation: SUBJECTIVE: Seen and examined at bedside Still has nausea, vomiting, abdominal pain Denies chest pain, SOB No other complaints OBJECTIVE: Vital Signs-as noted below Physical Exam: General Appearance:Moderately built and nourished, no apparent distress Head: normocephalic, Atraumatic Eyes: normal inspection, EOMI, PERRL Respiratory/Chest: Normal breath sounds, CTA Cardiovascular: S1, S2, No murmur Abdomen/GI:Soft, Non tender, Bowel sounds present Extremities/Musculoskelatal:normal inspection, no edema Neurologic/Psych:AAOX3, grossly no focal neurological deficits Skin: normal color, warm Lab data as noted below. ASSESSMENT & PLAN: Patient is a 51 yr male with PMH of uncontrolled, insulin-dependent DM2 with multiple complications including severe gastroparesis s/p gastric stimulator insertion, severe peripheral neuropathy on chronic pain medications presents with worsening nausea/vomiting/dehydration DM II: labile glucose levels Initially on insulin drip for BS control Appreciate pharmacy help Was on Lantus 15 units Q HS at home Currently on ISS Diabetic Neuropathy Follows with pain management Continue fentanyl patch Continue Keppra which is increased to 1000 mg BID Also started on Cymbalta 30 mg by mouth daily Patient reports he gabapentin has not been helping and is not taking the same at home Appreciate Pain management Input H/O gastroparesis from diabetes had been on IV Fosaprepitant dimeglumine (Emend) on this admission continue antiemetics he has a gastric pacemaker: will need adjustment Previously followed in [facility] Currently planning to follow a center in [place], [place] in Jun 2017 Appreciate GI input Diarrhea Negative Stool studies Hypokalemia/hypomagnesemia: Secondary to GI losses Resolved Monitor IVAN on CKD III: Prerenal Cr trending towards baseline Monitor HTN: Hold HCTZ because of dehydration continue amlodipine, metoprolol tartrate, lisinopril ULCERATION RIGHT GREAT TOE Has ulcer dorsum of right great toe which patient attributes to crawling on bathroom floor when he has nausea and vomiting. Has bandage over the area Continue wound care LUNG CANCER Adenocarcinoma of lung, s/p resection and chemo. No apparent recurrence per CT chest. Has f/u appt with Medical Oncology. SEIZURE DISORDER No active seizures in this hospital stay Continue levetiracetam. DVT Px: SQ heparin. Disposition: Needs follow up with center that performs gastric stimulator adjustment: Follow up appointment in Jun 2017 in [place], [place] Follow up with Sherri Jackson on 05/09/2017 at 1:15 PM Need Script prior to discharge for: 1. OneTouch Verio test strips to check 3x/day. 2. OneTouch Delica lancets to check 3x/day. 3. BD Ruby insulin pen needles. Vital Signs: Date Time Temp Pulse Resp B/P (MAP) Pulse Ox O2 Delivery O2 Flow Rate FiO2 05/07/17 08:00 Room Air 05/07/17 07:43 37.0 76 20 176/103 (127) 100 Room Air 05/07/17 04:00 Room Air 05/07/17 03:10 36.8 70 17 161/88 (112) 98 Room Air 05/06/17 23:59 Room Air 05/06/17 23:05 36.4 67 17 134/80 (98) 99 05/06/17 20:00 Room Air 05/06/17 19:15 34.8 68 17 189/99 (129) 97 Room Air 05/06/17 16:17 64 16 128/80 (96) 100 Room Air Lab Results: Results Past 24 Hours Test 05/06/17 13:19 05/06/17 15:01 05/06/17 15:12 05/06/17 16:21 Range/Units Sodium Level 137 136-145 mmol/L Potassium Level 4.0 3.5-5.1 mmol/L Chloride Level 104 98-107 mmol/L Carbon Dioxide Level 29 21-32 mmol/L Anion Gap 4.0 3-11 mmol/L Blood Urea Nitrogen 12 7-18 mg/dl Creatinine 1.62 0.60-1.40 mg/dl Est Creatinine Clear Calc Drug Dose 52.2 ml/min Estimated GFR () 56.1 Estimated GFR (Non- 48.4 BUN/Creatinine Ratio 7.5 10-20 Random Glucose 104 70-99 mg/dl Calcium Level 8.2 8.5-10.1 mg/dl Magnesium Level 2.5 1.8-2.4 mg/dl Troponin I < 0.015 0-0.045 ng/ml Bedside Glucose 19 89 101 70-99 mg/dl Test 05/06/17 18:29 05/06/17 19:56 05/07/17 04:11 05/07/17 06:53 Range/Units Bedside Glucose 231 257 199 70-99 mg/dl Sodium Level 134 136-145 mmol/L Potassium Level 4.7 3.5-5.1 mmol/L Chloride Level 101 98-107 mmol/L Carbon Dioxide Level 30 21-32 mmol/L Anion Gap 3.0 3-11 mmol/L Blood Urea Nitrogen 14 7-18 mg/dl Creatinine 1.30 0.60-1.40 mg/dl Est Creatinine Clear Calc Drug Dose 65.0 ml/min Estimated GFR () 73.2 Estimated GFR (Non- 63.2 BUN/Creatinine Ratio 11.0 10-20 Random Glucose 185 70-99 mg/dl Calcium Level 8.0 8.5-10.1 mg/dl Magnesium Level 1.8 1.8-2.4 mg/dl Total Bilirubin 0.2 0.2-1 mg/dl Aspartate Amino Transf (AST/SGOT) 10 15-37 U/L Alanine Aminotransferase (ALT/SGPT) 13 12-78 U/L Alkaline Phosphatase 72 45-117 U/L Total Protein 6.0 6.4-8.2 gm/dl Albumin 2.5 3.4-5.0 gm/dl Globulin 3.5 2.5-4.0 gm/dl Albumin/Globulin Ratio 0.7 0.9-2
[2017-05-07] MEDS ORDERED: INSULIN GLARGINE SOLOSTAR 100 UNITS/ML 3 ML PEN SC SCH (12:10)
[2017-05-07] MEDS ORDERED: PHARMACY GLYCEMIC MGMT CONSULT PRN (12:12)
--- NOTE | 2017-05-07 14:25 | Pharmacy Progress Note ---
Pharmacy Glycemic Short Note 2 Date of Service May 07, 2017. OUTPATIENT ANTIDIABETIC REGIMEN: * Basaglar 15 units SQ qHS * Humalog SSI (1-10 units with each meal depending on food consumed and BSG) * HbA1c: 7.9% (04/26/17) ASSESSMENT: * Pharmacy was re-consulted for glycemic management today after the patient had a SEVERE low (19) yesterday and now in the 200s * Events since yesterday: * Lantus 18 units qHS was continued (has been receiving since 04/29) * Novolog with CF 30, CR 10 was continued (has been on since 04/27) * Patient has this perpetual snacking overnight and vomiting after meals during the day due to his gastroparesis * It was documented that he received 9 units of Novolog with lunch yesterday for 88 gm CHO (which he vomited), then had a resulting BSG of 19 * Lantus was placed on hold, CR was removed and D51/2NS @ 100 was started * BSGs are now increased due to missed basal dose and removal of CR * My plan will be to resume the basal dose (hypoglycemia not related to the basal insulin) * Will resume the CR but loosen to 15 and add a note to NOT give if patient vomits up his meal PLAN FOR INPATIENT GLYCEMIC CONTROL: * Basal insulin * Restart Lantus 18 units SQ HS - 1st dose now * Bolus insulin * NovoLog per scale ACHS or Q6hrs while NPO * Goal Range: Low 120 mg/dL - High 160 mg/dL * Correction Factor: 30 mg/dL/unit * Nutritional / Prandial insulin per carb ratio of 1 unit per 15 grams CHO consumed (HOLD if patient vomits up meal) RECOMMENDATIONS FOR DISCHARGE: * Consider increasing Basaglar to 18 units qHS * Continue Humalog per sliding scale
--- NOTE | 2017-05-07 15:29 | Gastroenterology Progress Note ---
Progress Note Date of Service: May 07, 2017 Subjective Pt evaluation today including: conversation w/ patient, physical exam, chart review, lab review, review of studies, review of inpatient medication list Mr. Hamilton is a 51 yr old male with DM neuropathy and gastroparesis. GI is asked to reconsult for nausea/vomiting thought to be caused by gastroparesis, aggrivated by narcotic use. The pt has a gastric pacer that was interrupted by surgery a few months ago and he has an appt near [place] to reset the pacer in a few weeks. In the interum , he has a lot of post prandial nausea/vomiting. He tells us that the Emend that was used twice last week was fairly effective for his nausea/vomiting. Review of Systems Constitutional: No fever Respiratory: No cough Cardiac: No chest pain Abdomen: + nausea, + vomiting, No pain, No diarrhea Male : No dysuria Neuro: No memory loss Endo: No fatigue Skin: No rash Medications Current Inpatient Medications Medications (Trade) Dose Ordered Sig/Cal Route Start Time Stop Time Status Last Admin Dose Admin Ondansetron HCl (Zofran Inj) 4 mg Q6H PRN IV 04/25/17 19:30 05/25/17 19:29 05/07/17 07:50 4 MG Albuterol (Ventolin Hfa Inhaler) 2 puffs Q6H PRN INH 04/25/17 21:15 05/25/17 21:14 04/28/17 15:26 2 PUFFS Prochlorperazine Maleate (Compazine Tab) 10 mg Q6H PRN PO 04/25/17 21:15 05/25/17 21:14 05/05/17 12:50 10 MG Glucose (Glucose 40% Gel) UD PRN PO 04/25/17 23:45 05/25/17 23:44 Glucose (Glucose Chew Tab) 1 tabs UD PRN PO 04/25/17 23:45 05/25/17 23:44 Dextrose (Dextrose 50% 50ML Syringe) 50 ml UD PRN IV 04/25/17 23:45 05/25/17 23:44 05/06/17 15:14 50 ML Glucagon (Glucagon Inj) 1 mg UD PRN SQ 04/25/17 23:45 05/25/17 23:44 Levetiracetam (Keppra Tab) 1,000 mg BID PO 04/26/17 21:00 05/26/17 20:59 05/07/17 09:01 1,000 MG Duloxetine HCl (Cymbalta Cap) 30 mg QAM PO 04/26/17 09:15 05/26/17 09:14 05/07/17 09:02 30 MG Pantoprazole Sodium (Protonix Tab) 40 mg BID PO 04/26/17 21:00 05/26/17 20:59 05/07/17 09:03 40 MG Heparin Sodium (Porcine) (Heparin 10 Unit/ ml 5 ml Flush) 5 ml PRN PRN FLUSH 04/26/17 14:00 05/26/17 13:59 05/06/17 13:21 5 ML Amlodipine Besylate (Norvasc Tab) 5 mg DAILY PO 04/27/17 08:00 05/27/17 08:59 05/07/17 09:02 5 MG Metoprolol Tartrate (Lopressor Tab) 75 mg BID PO 04/26/17 21:00 05/26/17 20:59 05/07/17 09:02 75 MG Clonidine HCl (Catapres Tab) 0.1 mg Q6H PRN PO 04/30/17 23:00 05/30/17 22:59 05/03/17 15:25 0.1 MG Lisinopril (Zestril Tab) 40 mg DAILY PO 05/03/17 08:00 06/02/17 07:59 05/07/17 09:03 40 MG Amlodipine Besylate (Norvasc Tab) 5 mg QAM PO 05/03/17 08:00 06/02/17 07:59 05/07/17 09:02 5 MG Fentanyl (Duragesic Patch) 75 mcg Q72H TD 05/06/17 17:00 05/20/17 16:59 05/06/17 17:19 75 MCG Miscellaneous (Fentanyl Patch Remove & Waste) 1 ea Q3D N/A 05/09/17 16:59 06/08/17 16:58 Miscellaneous Information (Check Fentanyl Patch Placement) 1 ea QS N/A 05/07/17 00:00 06/06/17 00:00 05/07/17 07:50 1 EA Sumatriptan Succinate (Imitrex Tab) 25 mg Q8H PRN PO 05/06/17 16:45 06/05/17 16:44 Insulin Aspart (novoLOG ASPART) SLIDING SCALE G... ACHS SC 05/06/17 21:00 06/05/17 20:59 05/07/17 12:36 6 UNITS Miscellaneous Information (Consult Glycemic Management Pharmacy) 1 ea UD PRN N/A 05/07/17 12:12 06/06/17 12:11 Insulin Glargine (Lantus Solostar Pen) 18 units HS SC 05/07/17 12:10 06/06/17 12:09 05/07/17 12:36 18 UNITS Objective Vital Signs Date Time Temp Pulse Resp B/P (MAP) Pulse Ox O2 Delivery O2 Flow Rate FiO2 05/07/17 10:33 36.9 75 20 152/87 (108) 99 Room Air 05/07/17 08:00 Room Air 05/07/17 07:43 37.0 76 20 176/103 (127) 100 Room Air 05/07/17 04:00 Room Air 05/07/17 03:10 36.8 70 17 161/88 (112) 98 Room Air 05/06/17 23:59 Room Air 05/06/17 23:05 36.4 67 17 134/80 (98) 99 05/06/17 20:00 Room Air 05/06/17 19:15 34.8 68 17 189/99 (129) 97 Room Air 05/06/17 16:17 64 16 128/80 (96) 100 Room Air Physical Exam General Appearance: no apparent distress ENT: pharynx normal Neck: no JVD Respiratory/Chest: lungs clear Cardiovascular: regular rate, rhythm, no edema, no murmur Abdomen: non tender, soft Neurologic/Psych: alert Skin: no jaundice Laboratory Results Last 24 Hours Test 05/06/17 16:21 05/06/17 18:29 05/06/17 19:56 05/07/17 04:11 Bedside Glucose 101 mg/dl 231 mg/dl 257 mg/dl Sodium Level 134 mmol/L Potassium Level 4.7 mmol/L Chloride Level 101 mmol/L Carbon Dioxide Level 30 mmol/L Anion Gap 3.0 mmol/L Blood Urea Nitrogen 14 mg/dl Creatinine 1.30 mg/dl Est Creatinine Clear Calc Drug Dose 65.0 ml/min Estimated GFR () 73.2 Estimated GFR (Non- 63.2 BUN/Creatinine Ratio 11.0 Random Glucose 185 mg/dl Calcium Level 8.0 mg/dl Magnesium Level 1.8 mg/dl Total Bilirubin 0.2 mg/dl Aspartate Amino Transf (AST/SGOT) 10 U/L Alanine Aminotransferase (ALT/SGPT) 13 U/L Alkaline Phosphatase 72 U/L Total Protein 6.0 gm/dl Albumin 2.5 gm/dl Globulin 3.5 gm/dl Albumin/Globulin Ratio 0.7 Test 05/07/17 06:53 05/07/17 10:48 Bedside Glucose 199 mg/dl 228 mg/dl Assessment and Plan Mr. Hamilton is a 51 yr old male with diabetic gastroparesis. Narcotics are also contributing to the nausea and gastroparesis. Emend has been effective recently. Plan: 1. Emend 150mg IV once. 2. Pt has appt for gastric pacer in a few weeks, which should improve his symptoms are well. 3. Gastroparesis diet (mostly soft, liquid foods). I performed a history and physical examination of the patient. I have discussed the patient's case, impression and plan with LINDSAY Wen. Her note reflects my findings and plan. Will try IV Emend again but patient needs to follow up with outside facility to get gastric pacer working. Ilir Ballard MD
[2017-05-07] MEDS ORDERED: FOSAPREPITANT DIMEGLUMINE INJ 150 MG in SODIUM CHLORIDE 0.9% 150ML 145 ML IV ONE (16:00)
--- NOTE | 2017-05-07 16:00 | NUR ---
Patient tearful; states that his pain is "unbearable." Says he "doesn't understand how they can just let me be in this much pain." He states that his regular Fentanyl patch dose was decreased significantly as well as his PO pain medication regimen. He appears uncomfortable and is restless. Otherwise, VSS. Continues in NSR on monitor. Has been walking around unit independently. GI came to see patient and ordered Emend, which he states has helped in the past. Had BM today. Single lumen PICC WNL. Will page Dr. Wells re: patient's pain. Will continue to monitor.
[2017-05-07] MEDS: OXYCODONE HCL IR 5 MG TAB (IMMEDIATE RELEASE) PO PRN ×2 (16:49→20:58)
[2017-05-08] VITALS (9 sets, daily range): BP systolic 101–183; BP diastolic 63–92; PULSE 71–76; TEMP 36.6–36.7; O2SAT 97–100; Ht 172.7 cm; Wt 78.2 kg
--- NOTE | 2017-05-08 00:01 | NUR ---
A: Assessment completed- see EMR for full detail; VSS, - see EMR; AA&Ox4, Appropriate; NSR, noted on monitor; Denies CP/SOB, On room Air; Pt. ambulates independently in halls; no needs apparent or verbalized at this time; labs reviewed; safety measures reviewed; call-amaya & items of necessity in reach, encouraged to ring for assistance; will continue to monitor & assess.
[2017-05-08] MEDS: CHECK FENTANYL PATCH PLACEMENT SCH ×2 (00:27→07:32)
[2017-05-08] MEDS: OXYCODONE HCL IR 5 MG TAB (IMMEDIATE RELEASE) PO PRN ×3 (01:48→11:10)
--- NOTE | 2017-05-08 01:48 | NUR ---
Pt. reported pain at this time medicated per order -see eMAR/ pain assessment ; pt. also c/o nausea at this time medicated per order with Zofran -see eMAR
[2017-05-08] MEDS: ONDANSETRON INJ 2 MG/ML 2 ML VIAL IV PRN ×2 (01:49→08:08)
--- NOTE | 2017-05-08 02:10 | NUR ---
Pt. transfered to room 283 -1 report called to receiving RN see in house transfer intervention
--- NOTE | 2017-05-08 02:16 | NUR ---
A: Patient arrived to room N283-1 from 216, ambulating with walker accompanied by float nurse. Patient oriented to room and call amaya. VSS on room air. SR on monitor. Patient independent in room. Instructed to ring to assistance. Will continue to monitor.
[2017-05-08 05:47] LABS: HEMATOCRIT 24.7 % (42-52); HEMOGLOBIN 8.6 g/dL (14.0-18.0); MEAN CELL VOLUME 84.9 fL (80-100); MEAN CORPUSCULAR HEMOGLOBIN 29.6 pg (25-34); MEAN CORPUSCULAR HGB CONC 34.8 g/dl (32-36); MEAN PLATELET VOLUME 8.7 fL (7.4-10.4); PLATELET COUNT 174 K/uL (130-400); RED CELL DISTRIBUTION WIDTH CV 14.5 % (11.5-14.5); RED CELL DISTRIBUTION WIDTH SD 45.4 fL (36.4-46.3)
[2017-05-08 06:16] LABS: CREATININE 1.34 mg/dl (0.60-1.40)
[2017-05-08 06:17] LABS: CALCIUM 8.3 mg/dl (8.5-10.1); POTASSIUM 4.5 mmol/L (3.5-5.1)
[2017-05-08] MEDS: AMLODIPINE BESYLATE 5 MG TAB PO SCH ×2 (08:11→09:45)
[2017-05-08] MEDS: PANTOprazole SOD 40 MG TAB PO SCH (08:11)
[2017-05-08] MEDS: LISINOPRIL 40 MG TAB PO SCH (08:12)
[2017-05-08] MEDS: DULOXETINE (CYMBALTA) 30 MG CAP PO SCH (08:13)
[2017-05-08] MEDS: LEVETIRACETAM 500 MG TAB PO SCH (08:13)
[2017-05-08] MEDS: METOPROLOL TARTRATE 25 MG TAB PO SCH (08:13)
[2017-05-08] MEDS: INSULIN ASPART 100 UNITS/ML 3 ML PEN SC SCH ×2 (08:15→12:20)
--- NOTE | 2017-05-08 08:35 | NUR ---
Case Management Note- Chart reviewed. Patient will return home with [facility]. Patient transferred to room 283-1. Unit Land Surveyor to follow.
[2017-05-08] MEDS: MAGNESIUM SULFATE 1GM / D5W 1 GM in PREMIXED IN D5W 100 ML IV SCH ×2 (10:19→11:11)
--- NOTE | 2017-05-08 10:56 | NUR ---
DIABETES: Pt seenfor BS < 70mg/dl & > 300mg/dl. See DM network interventions. Addendum: 05/08/17 at 1057 by Tsering Castro RN Amended: Links added.
--- NOTE | 2017-05-08 11:57 | NUR ---
Follow up note. Please refer to linked assessment Addendum: 05/08/17 at [address] Amended: Links added.
--- NOTE | 2017-05-08 12:00 | NUR ---
A: Pt remains in NSR on telemetry monitoring, pt denies chest pain, c/o diarrhea and requested anti diarrheal medication if possible for this, pt states has had last few days. Call out to md for further orders. Pt ambulating in hallway and dangling at bedside, States he has generalized overall pain from his neck down, prn Roxicodone isn't very effective at times but takes the edge off. Continue to monitor pt, pt is awaiting G.I. and hospitalist to see him for possible discharge to home. Call amaya at direct reach, hourly rounding maintained. L upper arm PICC line intact.
[2017-05-08] MEDS: ALBUTEROL HFA 8 GM INHALER INH PRN (12:22)
[2017-05-08] MEDS ORDERED: DIPHENOXYLATE/ATROPINE 2.5/0.025MG TAB PO PRN (13:30)
--- NOTE | 2017-05-08 13:37 | Progress Note ---
Internal Med Progress Note Date of Service: May 08, 2017. Provider Documentation: SUBJECTIVE: Seen and examined at bedside nausea, vomiting and abdominal pain significantly improved after emend Still has diarrhea. Discussed with GI, OK to SC Denies chest pain, SOB No other complaints OBJECTIVE: Vital Signs-as noted below Physical Exam: General Appearance:Moderately built and nourished, no apparent distress Head: normocephalic, Atraumatic Eyes: normal inspection, EOMI, PERRL Respiratory/Chest: Normal breath sounds, CTA Cardiovascular: S1, S2, No murmur Abdomen/GI:Soft, Non tender, Bowel sounds present Extremities/Musculoskelatal:normal inspection, no edema Neurologic/Psych:AAOX3, grossly no focal neurological deficits Skin: normal color, warm Lab data as noted below. ASSESSMENT & PLAN: Patient is a 51 yr male with PMH of uncontrolled, insulin-dependent DM2 with multiple complications including severe gastroparesis s/p gastric stimulator insertion, severe peripheral neuropathy on chronic pain medications presents with worsening nausea/vomiting/dehydration DM II: labile glucose levels Initially on insulin drip for BS control Appreciate pharmacy help Continue ISS, Lantus Diabetic Neuropathy Follows with pain management Continue fentanyl patch Continue Keppra which is increased to 1000 mg BID Also started on Cymbalta 30 mg by mouth daily Patient reports he gabapentin has not been helping and is not taking the same at home Appreciate Pain management Input H/O gastroparesis from diabetes had been on IV Fosaprepitant dimeglumine (Emend) on this admission continue antiemetics he has a gastric pacemaker: will need adjustment Previously followed in [facility] Currently planning to follow a center in [place], [place] in Jun 2017 Appreciate GI input Significant improvement after Emend Gastroparesis diet Diarrhea Negative Stool studies Lomotil PRN Hypokalemia/hypomagnesemia: Secondary to GI losses Resolved Monitor IVAN on CKD III: Prerenal Cr trended back to baseline Monitor HTN: Hold HCTZ because of dehydration continue amlodipine, metoprolol tartrate, lisinopril ULCERATION RIGHT GREAT TOE Has ulcer dorsum of right great toe which patient attributes to crawling on bathroom floor when he has nausea and vomiting. Has bandage over the area Continue wound care LUNG CANCER Adenocarcinoma of lung, s/p resection and chemo. No apparent recurrence per CT chest. Has f/u appt with Medical Oncology. SEIZURE DISORDER No active seizures in this hospital stay Continue levetiracetam. DVT Px: SQ heparin. Disposition: Follow up with your primary care Sherri Jackson on 05/09/2017 at 1:15 PM Follow up with center that performs gastric stimulator adjustment: Follow up appointment in Jun 2017 in [place], [place] Follow up with your Dental Appliance Fixer in 2-4 weeks as needed Seek immediate medical attention if your symptoms reoccur or worsen Vital Signs: Date Time Temp Pulse Resp B/P (MAP) Pulse Ox O2 Delivery O2 Flow Rate FiO2 05/08/17 12:00 100 Room Air 05/08/17 11:09 36.7 71 18 101/63 (76) 100 Room Air 05/08/17 08:00 97 Room Air 05/08/17 07:18 36.7 73 18 146/79 (101) 97 Room Air 05/08/17 04:00 Room Air 05/08/17 04:00 115/69 (84) 05/08/17 02:34 36.6 76 16 183/92 (122) 98 Room Air 05/08/17 02:28 36.6 72 18 100 05/08/17 00:01 100 Room Air 05/07/17 23:09 36.6 72 18 152/91 (111) 100 Room Air 05/07/17 20:00 99 Room Air 05/07/17 19:25 36.7 78 18 104/69 (81) 99 Room Air 05/07/17 16:00 Room Air 05/07/17 15:29 37.0 78 18 149/81 (103) 99 Room Air Lab Results: Results Past 24 Hours Test 05/07/17 15:59 05/07/17 20:12 05/08/17 05:19 05/08/17 07:28 Range/Units Bedside Glucose 187 116 318 70-99 mg/dl White Blood Count 4.70 4.8-10.8 K/uL Red Blood Count 2.91 4.7-6.1 M/uL Hemoglobin 8.6 14.0-18.0 g/dL Hematocrit 24.7 42-52 % Mean Corpuscular Volume 84.9 80-100 fL Mean Corpuscular Hemoglobin 29.6 25-34 pg Mean Corpuscular Hemoglobin Concent 34.8 32-36 g/dl RDW Standard Deviation 45.4 36.4-46.3 fL RDW Coefficient of Variation 14.5 11.5-14.5 % Platelet Count 174 130-400 K/uL Mean Platelet Volume 8.7 7.4-10.4 fL Sodium Level 135 136-145 mmol/L Potassium Level 4.5 3.5-5.1 mmol/L Chloride Level 100 98-107 mmol/L Carbon Dioxide Level 30 21-32 mmol/L Anion Gap 5.0 3-11 mmol/L Blood Urea Nitrogen 15 7-18 mg/dl Creatinine 1.34 0.60-1.40 mg/dl Est Creatinine Clear Calc Drug Dose 63.1 ml/min Estimated GFR () 70.6 Estimated GFR (Non- 60.9 BUN/Creatinine Ratio 11.4 10-20 Random Glucose 276 70-99 mg/dl Calcium Level 8.3 8.5-10.1 mg/dl Magnesium Level 1.6 1.8-2.4 mg/dl Test 05/08/17 11:42 Range/Units Bedside Glucose 91 70-99 mg/dl
[2017-05-08] MEDS ORDERED: CYM30 PO (13:44)
[2017-05-08] MEDS ORDERED: LEVE500T13 PO (13:44)
[2017-05-08] MEDS ORDERED: LMTHP PO (13:44)
--- NOTE | 2017-05-08 13:47 | Discharge Summary ---
Discharge Summary Date of Service May 08, 2017. Discharge Summary Admission Date: Apr 25, 2017 at 19:31 Discharge Date: May 08, 2017 Discharge Disposition: Home with services Principal Diagnosis: Uncontrolled DM II, Severe Gastroparesis Procedures: CT ABD: 1. No bowel wall thickening or obstruction. 2. Interval removal of the spinal stimulator device/leads. No loculated fluid collections remaining within the lumbar region to suggest an abscess. 3. Trace left pleural effusion which has improved. 4. Left-sided nephrolithiasis. No hydronephrosis. 5. Cholecystectomy. 6. Stable appendix. Therefore, no evidence for acute appendicitis. 7. Mildly distended bladder. CT chest: 1. Complete resolution of previously noted right upper lobe pneumonia. 2. Resolution of right pleural effusion and right basilar atelectasis. 3. Trace left pleural effusion and trace left basilar atelectasis. 4. No residual pulmonary edema. 5. Postsurgical changes of left upper lobectomy. Consultations: Gastroenterology Pending Studies/Follow-Up: Follow up with your primary care Sherri Jackson on 05/09/2017 at 1:15 PM Follow up with center that performs gastric stimulator adjustment: Follow up appointment in Jun 2017 in [place], [place] Follow up with your Tower Excavator Operator in 2-4 weeks as needed Seek immediate medical attention if your symptoms reoccur or worsen Medication Reconciliation New Medications: Diphenoxylate/Atropine (Diphenoxylate/Atropine 2.5-0.025 mg) 1 Tab Tab 1 TAB PO BID PRN for Diarrhea for 7 Days, #14 TAB Duloxetine HCl (Duloxetine HCl) 30 Mg Cap 30 MG PO QAM for 30 Days, #30 CAP 2 Refills Levetiracetam (Keppra) 500 Mg Tab 1000 MG PO BID for 30 Days, #120 TAB 1 Refill Continued Medications: Acetaminophen (Tylenol) 500 Mg Tab 1000 MG PO Q6H PRN for Pain, TAB Albuterol Hfa (Ventolin Hfa) 200 Puffs/50166 Mcg Aers 2 PUFFS INH Q6H PRN for Wheezing Amlodipine (Norvasc) 5 Mg Tab 5 MG PO DAILY, TAB Cholecalciferol (Vitamin D3) 50,000 Unit Tab 46175 UNITS PO WK Docusate Sodium (Docusate Sodium) 100 Mg Cap 200 MG PO DAILY Epinephrine (Epipen) 0.3 Mg/0.3 Ml Inj 0.3 MG IM UD PRN for ALLERGIC REACTION Fentanyl (Fentanyl) 100 Mcg Tdsy 100 MCG TOP Q2D Ferrous Sulfate (Kp Ferrous Sulfate) 325 Mg Tab 325 MG PO BID, TAB 3 Refills Gabapentin (Gabapentin) 300 Mg Cap 300 MG PO TID, CAP Hydrochlorothiazide (Hydrochlorothiazide) 12.5 Mg Tab 12.5 MG PO DAILY Insulin Glargine (Basaglar Kwikpen) 100 Unit/Ml Inj 15 UNITS SQ HS Insulin Lispro (Human) (Humalog) 100 Unit/Ml Inj 0 SQ UD Lisinopril (Lisinopril) 40 Mg Tab 40 MG PO DAILY, TAB Metoprolol Tartrate (Lopressor) (Lopressor) 25 Mg Tab 75 MG PO BID, TAB Mirtazapine (Mirtazapine) 15 Mg Tab 15 MG PO HS Multiple Vitamin (Multivitamins) 1 Cap Cap 1 CAP PO QAM Omeprazole (Prilosec) 20 Mg Cap 20 MG PO DAILY, CAP Ondansetron (Ondansetron HCl) 4 Mg Tab 8 MG PO Q8 PRN for Nausea Oxycodone Hcl (Oxycodone Hcl) 10 Mg Tab 10 TAB PO Q4H PRN for Pain Prochlorperazine Maleate (Compazine) 10 Mg Tab 10 MG PO Q6H PRN for Nausea or Vomiting, TAB Discontinued Medications: Levetiracetam (Keppra) 750 Mg Tab 750 MG PO BID, TAB Admission Information HPI (per Admitting provider): 51 YO male followed by Dr. Burgess. History of diabetes mellitus type 2 diagnosed in 2000, complicated by severe autonomic and peripheral neuropathy. Severe gastroparesis. Status post gastric stimulator at [facility] about 1 year ago. Chronic pain due to severe peripheral neuropathy. Status post intrathecal pump placement, but it had to be removed due to infection. Completed course of IV vancomycin on 03/31/17. Hospitalized at [facility] in early April due to intractable nausea and vomiting due to gastroparesis. Metoclopramide stopped because of hallucinations. Discharged on ondansetron and prochlorperazine PRN. Has had ongoing nausea and vomiting since returning home. Vomiting about 12 times a day. No abdominal pain or significant abdominal distention. Not able to keep down meds or nutrition. Ondansetron and prochlorperazine not effective. Having loose stools every other day. No gross hematemesis or hematochezia. Blood sugars fluctuating due to GI symptoms. Seen in clinic today. Found to be hypotensive and tachycardic. Referred to ED for further evaluation. . Physical Exam (per Admitting): General Appearance: + moderate distress, + thin Head: normocephalic, atraumatic Eyes: normal inspection, PERRL, EOMI, sclerae normal ENT: hearing grossly normal, pharynx normal Neck: supple, no adenopathy, thyroid normal, no JVD, trachea midline Respiratory/Chest: lungs clear, no respiratory distress, no accessory muscle use Cardiovascular: regular rate, rhythm, no edema, no gallop, no JVD, normal peripheral pulses, + systolic murmur (I/ sys murmur at base) Abdomen/GI: non tender, soft, no organomegaly, + pertinent finding (quiet bowel sounds) Back: + pertinent finding (lumbar incision healed; no erythema or drainage) Extremities/Musculoskelatal: normal inspection, no calf tenderness, normal capillary refill Neurologic/Psych: rounding machine tender II-XII nml as tested (PERRL, EOMI, no facial palsy), no motor/sensory deficits (motor strength upper and lower extremities grossly intact), oriented x 3, + pertinent finding (mildly somnolent; decreased sensation to light touch distal lower extremities) Skin: normal color, warm/dry, no rash, + pertinent finding (10 x 15 mm ulceration dorsum right great toe without erythema or drainage) Lymphatic: no adenopathy (cervical) Hospital Course Patient is a 51 yr male with PMH of uncontrolled, insulin-dependent DM2 with multiple complications including severe gastroparesis s/p gastric stimulator insertion, severe peripheral neuropathy on chronic pain medications presents with worsening nausea/vomiting/dehydration DM II: labile glucose levels Initially on insulin drip for BS control Appreciate pharmacy help Continue ISS, Lantus Diabetic Neuropathy Follows with pain management Continue fentanyl patch Continue Keppra which is increased to 1000 mg BID Also started on Cymbalta 30 mg by mouth daily Patient reports he gabapentin has not been helping and is not taking the same at home Appreciate Pain management Input H/O gastroparesis from diabetes had been on IV Fosaprepitant dimeglumine (Emend) on this admission continue antiemetics he has a gastric pacemaker: will need adjustment Previously followed in [facility] Currently planning to follow a center in [place], [place] in Jun 2017 Appreciate GI input Significant improvement after Emend Gastroparesis diet Diarrhea Negative Stool studies Lomotil PRN Hypokalemia/hypomagnesemia: Secondary to GI losses Resolved Monitor IVAN on CKD III: Prerenal Cr trended back to baseline Monitor HTN: Hold HCTZ because of dehydration continue amlodipine, metoprolol tartrate, lisinopril ULCERATION RIGHT GREAT TOE Has ulcer dorsum of right great toe which patient attributes to crawling on bathroom floor when he has nausea and vomiting. Has bandage over the area Continue wound care LUNG CANCER Adenocarcinoma of lung, s/p resection and chemo. No apparent recurrence per CT chest. Has f/u appt with Medical Oncology. SEIZURE DISORDER No active seizures in this hospital stay Continue levetiracetam. DVT Px: SQ heparin. Disposition: Follow up with your primary care Sherri Jackson on 05/09/2017 at 1:15 PM Follow up with center that performs gastric stimulator adjustment: Follow up appointment in Jun 2017 in [place], [place] Follow up with your Tower Excavator Operator in 2-4 weeks as needed Seek immediate medical attention if your symptoms reoccur or worsen Total time spent on discharge = 33 minutes This includes examination of the patient, discharge planning, medication reconciliation, and communication with other providers. Discharge Instructions Discharge Instructions Date of Service May 08, 2017. Admission Reason for Admission: Diabetes Mellitis Type 2, Uncontrolled Discharge Discharge Diagnosis / Problem: Uncontrolled DM II, Severe Gastroparesis Discharge Goals Goal(s): Decrease discomfort, Improve function Activity Recommendations Activity Limitations: resume your previous activity Exercise/Sports Limitations: as tolerated . Instructions / Follow-Up Instructions / Follow-Up Follow up with your primary care Sherri Jackson on 05/09/2017 at 1:15 PM Follow up with center that performs gastric stimulator adjustment: Follow up appointment in Jun 2017 in [place], [place] Follow up with your Tower Excavator Operator in 2-4 weeks as needed Seek immediate medical attention if your symptoms reoccur or worsen Current Hospital Diet Patient's current hospital diet: Diabetes Type 2 Diet Discharge Diet Recommended Diet: Diabetes Type 2 Diet Pending Studies Studies pending at discharge: no Laboratory Results Hemoglobin A1c Test 04/26/17 05:48 Range/Units Estimated Average Glucose 180 mg/dl Hemoglobin A1c 7.9 H 4.5-5.6 % Medical Emergencies . Who to Call and When: Medical Emergencies: If at any time you feel your situation is an emergency, please call 911 immediately. . Non-Emergent Contact Non-Emergency issues call your: Primary Care Provider, Tower Excavator Operator Call Non-Emergent contact if: you have a fever, your pain is not controlled, your pain is worsening, your pain is unusual for you, your pain is concerning you, you have any medication questions Seek immediate medical attention if your symptoms reoccur or worsen . . "Provider Documentation" section prepared by Jose Wells. . VTE Core Measure Inpt VTE Proph given/why not?: Unfractionated heparin SQ <Electronically signed by Jose Wells MD> Signed: 05/08/17 [id number] Signed: The status of this report is Signed * If report status is Draft, the document has not been finalized by the responsible provider.
[2017-05-09] MEDS ORDERED: AMLODIPINE BESYLATE 5 MG TAB PO SCH (09:00)
[2017-05-09] MEDS ORDERED: FENTANYL PATCH REMOVE & WASTE SCH (16:59)
[2017-05-25] MEDS ORDERED: MGNO400 PO (12:02)
[2017-05-25] MEDS ORDERED: ERYC250 PO (12:02)
[2017-05-25] MEDS ORDERED: APR25 PO (12:02)
== END 2017-05-08 14:35 | disposition home health service (06) | DRG 74 ==
LOC: C.EDB 16:03 → C.MED 19:31 → ENRESERV 21:23 → C.4E 04-27 06:47 → ENRESERV 05-06 15:38 → C.2T 05-06 16:21 → C.MED 05-08 02:10
PROVIDERS: ADMIT Hospitalist; ATTEND Internal Medicine
PROC: 02HV33Z Insertion of Infusion Device into Superior Vena Cava, Percutaneous Approach (ICD-10-PCS; principal; 2017-04-26)
DX: E11.43 Type 2 diabetes mellitus with diabetic autonomic (poly)neuropathy (principal); E11.65 Type 2 diabetes mellitus with hyperglycemia; E87.1 Hypo-osmolality and hyponatremia; N17.9 Acute kidney failure, unspecified; F11.20 Opioid dependence, uncomplicated; I12.9 Hypertensive chronic kidney disease with stage 1 through stage 4 chronic kidney disease, or unspecified chronic kidney disease; Z85.118 Personal history of other malignant neoplasm of bronchus and lung; G40.909 Epilepsy, unspecified, not intractable, without status epilepticus; E86.0 Dehydration; L97.519 Non-pressure chronic ulcer of other part of right foot with unspecified severity; E87.6 Hypokalemia; E83.42 Hypomagnesemia; N18.3 Chronic kidney disease, stage 3 (moderate); Z87.891 Personal history of nicotine dependence; Z88.0 Allergy status to penicillin; Z96.659 Presence of unspecified artificial knee joint; Z90.2 Acquired absence of lung [part of]; Z96.89 Presence of other specified functional implants; Z79.4 Long term (current) use of insulin

== ENCOUNTER 2017-05-12 16:56 | Emergency (ER) | payer OTHER ==
[~2017-05-12 16:56] MED LIST changes: +ACET-1256 PO; -ACET-1311 PO; +AMLO-110 PO; -AMLO5TAB3 PO; -ASPI81TA28 PO; -CEFA1INJ IV; +CHOL1TAB63 PO; +CLC100 PO; +CYM30 PO; -DRGTP100; +FNTTP100 TOP; -FOLI1TAB8 PO; +GABA1CAP4 PO; +HYDR12.55 PO; -HYDR2TAB48 PO; -HYZ/50125 PO; -INSDGI SC; +INSU100I SQ; +INSU100I23 SQ; +LEVE500T13 PO; -LISI-725 PO; +LMTHP PO; +LSN40 PO; -NRN600 PO; -NVLG SC; +OMEP20CA9 PO; +OXYC-164 PO; -PEGSOL13; -PRLSR20 PO; +PROC1TAB5 PO; -PROM25SU28 PR; +RMR15 PO; -VENL37.52 PO
[2017-05-12 17:10] VITALS: TEMP 36.9
[2017-05-12] MEDS ORDERED: HYDROmorphone INJ 0.5 MG/0.5 ML SYR IV STA ×2 (17:19→18:42)
[2017-05-12] MEDS ORDERED: ONDANSETRON INJ 2 MG/ML 2 ML VIAL IV STA (17:19)
[2017-05-12] MEDS ORDERED: SODIUM CHLORIDE 0.9% 1000ML 2,000 ML IV STA (17:19)
[2017-05-12] MEDS ORDERED: OPTIRAY 320 IV PRN (17:45)
[2017-05-12 17:47] LABS: BASO % 0.1 %; BASO ABS # 0.01 K/uL (0-0.2); HEMATOCRIT 32.6 % (42-52); HEMOGLOBIN 11.9 g/dL (14.0-18.0); IG# 0.03 K/uL (0.00-0.02); LYMPH % 7.7 %; LYMPH ABS # 0.77 K/uL (1.2-3.4); MEAN CELL VOLUME 82.3 fL (80-100); MEAN CORPUSCULAR HEMOGLOBIN 30.1 pg (25-34); MEAN CORPUSCULAR HGB CONC 36.5 g/dl (32-36); MEAN PLATELET VOLUME 9.1 fL (7.4-10.4); MONO % 5.3 %; MONO ABS # 0.53 K/uL (0.11-0.59); NEUT % 86.6 %; NEUT ABS # 8.65 K/uL (1.4-6.5); PLATELET COUNT 188 K/uL (130-400); RED CELL DISTRIBUTION WIDTH CV 13.9 % (11.5-14.5); RED CELL DISTRIBUTION WIDTH SD 41.8 fL (36.4-46.3); WHITE BLOOD COUNT 9.99 K/uL (4.8-10.8)
--- NOTE | 2017-05-12 18:07 | EMERGENCY ROOM VISIT NOTE ---
History First contact with patient: 17:12 Chief Complaint: NAUSEA Stated Complaint: NAUSEA History of Present Illness The patient is a 51 year old male who presents to the Emergency Room with complaints of diffuse abdominal pain, nausea and vomiting, and diarrhea that started 3 days ago. The patient was recently admitted to this hospital for the same symptoms, he states this is related to his gastroparesis and diabetes, he was just discharged home on 05/08 and reports he had been feeling improved. He saw his primary care provider the next day for follow-up and was still feeling well, but that night started to have some of the nausea and vomiting return. Now he has severe nausea/vomiting and is unable to keep anything down, also complaining of diffuse abdominal pain. He reports subjective fevers and chills , but has not checked his temperature. Past medical history significant for severe gastroparesis with bowel stimulator, and he is followed by gastroenterology for this, he states he has a follow-up appointment scheduled for June.[] Review of Systems A complete 10 point review of systems was reviewed with the patient with pertinent positives and negatives as per history of present illness. All else were negative. Past Medical/Surgical History Medical Problems: (1) Chronic pain (2) Diabetic autonomic neuropathy (3) Diabetic peripheral neuropathy (4) Gastroparesis (5) Hypertension (6) Infection of intrathecal pump (7) Lung cancer (8) Orthostatic hypotension (9) Pneumonia (10) Seizure disorder Surgical Problems: (1) H/O colonoscopy (2) H/O esophagogastroduodenoscopy (3) History of cholecystectomy (4) History of tonsillectomy and adenoidectomy (5) Hx of total knee arthroplasty (6) S/P lobectomy of lung Family History Diabetes mellitus FATHER MOTHER GRANDFATHER Renal cancer SISTER Social History Smoking Status: Former Smoker Alcohol Use: none Drug Use: none Marital Status: Housing Status: lives with family Occupation Status: disabled Current/Historical Medications Scheduled Amlodipine (Norvasc), 5 MG PO DAILY Cholecalciferol (Vitamin D3), 50,000 UNITS PO WK Docusate Sodium (Docusate Sodium), 200 MG PO DAILY Duloxetine HCl (Duloxetine HCl), 30 MG PO QAM Fentanyl (Fentanyl), 100 MCG TOP Q2D Ferrous Sulfate (Kp Ferrous Sulfate), 325 MG PO BID Gabapentin (Gabapentin), 300 MG PO TID Hydrochlorothiazide (Hydrochlorothiazide), 12.5 MG PO DAILY Insulin Glargine (Lantus Solostar), 15 UNITS SQ QPM Insulin Lispro (Human) (Humalog), 0 SQ UD Levetiracetam (Keppra), 1,000 MG PO BID Lisinopril (Lisinopril), 40 MG PO DAILY Metoprolol Tartrate (Lopressor) (Lopressor), 75 MG PO BID Mirtazapine (Mirtazapine), 15 MG PO HS Multiple Vitamin (Multivitamins), 1 CAP PO QAM Omeprazole (Prilosec), 20 MG PO DAILY Scheduled PRN Acetaminophen (Tylenol), 1,000 MG PO Q6H PRN for Pain Albuterol Hfa (Ventolin Hfa), 2 PUFFS INH Q6H PRN for Wheezing Diphenoxylate/Atropine (Diphenoxylate/Atropine 2.5-0.025 mg), 1 TAB PO BID PRN for Diarrhea Epinephrine (Epipen), 0.3 MG IM UD PRN for ALLERGIC REACTION Ondansetron (Ondansetron HCl), 8 MG PO Q8 PRN for Nausea Oxycodone Hcl (Oxycodone Hcl), 10 TAB PO Q4H PRN for Pain Prochlorperazine Maleate (Compazine), 10 MG PO Q6H PRN for Nausea or Vomiting Allergies Reviewed in chart Physical Exam Vital Signs Date Time Temp Pulse Resp B/P (MAP) Pulse Ox O2 Delivery O2 Flow Rate FiO2 05/12/17 22:22 102 12 96 05/12/17 22:07 104 19 100 Room Air 05/12/17 22:01 125/85 05/12/17 21:56 107 05/12/17 21:52 107 17 100 05/12/17 21:37 111 100 05/12/17 21:31 137/101 05/12/17 21:22 107 19 100 05/12/17 21:07 111 99 05/12/17 21:02 178/104 05/12/17 20:52 113 21 100 05/12/17 20:47 117 18 100 Nasal Cannula 2.0 05/12/17 20:32 110 13 100 05/12/17 20:31 191/115 05/12/17 20:17 112 25 100 05/12/17 20:02 109 22 100 05/12/17 20:01 190/109 05/12/17 19:53 163/93 05/12/17 19:47 107 22 100 05/12/17 19:32 108 100 05/12/17 19:31 100 Nasal Cannula 2.0 05/12/17 19:30 Nasal Cannula 2.0 05/12/17 19:27 112 12 85 Room Air 05/12/17 19:22 124 19 100 05/12/17 19:17 164/105 100 Room Air 05/12/17 19:15 112 29 05/12/17 19:00 113 24 05/12/17 18:45 118 13 93 05/12/17 18:09 112 20 164/121 100 Room Air 05/12/17 17:55 110 05/12/17 17:10 36.9 128 20 186/112 100 Room Air Physical Exam CONSTITUTIONAL: Patient is alert, appears uncomfortable, actively dry heaving, pale. Moderately dehydrated. HEENT: Normocephalic, atraumatic. Pupils equal, round and reactive to light, EOMI. TMs normal. Pharynx normal. Dry mucous membranes. NECK: Supple, full active range of motion without discomfort. RESPIRATORY: Clear to auscultation bilaterally with no wheezing, crackles, rhonchi or stridor. Equal expansion bilaterally. CARDIOVASCULAR: Tachycardic. Regular rhythm with no murmurs, rubs or gallops. Normal peripheral perfusion. No edema. GASTROINTESTINAL: Diffusely tender to palpation throughout, most significant on the left side. Positive guarding, no rebound tenderness. Soft and nondistended. No palpable masses or HSM. Bowel sounds present in all quadrants. MUSCULOSKELETAL: Full range of motion of all joints without discomfort. INTEGUMENTARY: No rash or other significant dermatologic conditions noted. NEUROLOGIC: Alert and oriented X 4 with normal affect. Cranial nerves II-XII grossly intact. No focal neurologic deficits noted. Normal strength and sensation all four extremities. Normal speech. Medical Decision & Procedures ER Provider Diagnostic Interpretation: CHEST ONE VIEW PORTABLE CLINICAL HISTORY: sepsis workup COMPARISON STUDY: Chest radiograph and chest CT April 25, 2017. FINDINGS: No pneumothorax is identified. Blunting of the left costophrenic angle is likely unchanged. There are post surgical findings with the left hemithorax with volume loss. There is no evidence of pulmonary edema. There is no consolidation to suggest pneumonia. IMPRESSION: No acute cardiopulmonary findings. No change in appearance of the chest. ----- CT OF THE ABDOMEN AND PELVIS WITH CONTRAST CLINICAL HISTORY: Abdominal pain, nausea and vomiting. History of lung cancer and psoas abscess. COMPARISON STUDY: CT of the abdomen and pelvis April 25, 2017. TECHNIQUE: Following IV administration of 70 mL of Optiray-320, axial images of the abdomen and pelvis were obtained from the lung bases to the proximal femurs. Images were reviewed in the axial, sagittal, and coronal planes. IV contrast was administered without complication. A dose lowering technique was utilized adhering to the principles of ALARA. CT DOSE: 401.45 mGy.cm FINDINGS: Visualized portions of the lower chest demonstrate moderate to severe concentric wall thickening of the esophagus which has developed since CT of April 25, 2017. A trace left pleural effusion is unchanged. There is no biliary ductal dilatation status post cholecystectomy. A 1.8 cm fat-containing right adrenal lesion is unchanged and consistent with a myelolipoma. The spleen, adrenal glands, kidneys and pancreas are unremarkable with the exception of pancreatic glandular atrophy. There is no pancreatic ductal dilatation. A left upper quadrant electronic device is noted. This may reflect a stimulator. There is no pneumatosis, free air or portal venous gas. No lymphadenopathy is present. There is moderate distention of the bladder. There is mild wall thickening of the descending colon with mild pericolonic infiltration. There may be mild rectal wall thickening. No suspicious osseous lesions are present. Major vasculature of the abdomen and pelvis is patent. Appendiceal dilatation is unchanged. There is no periappendiceal infiltration. IMPRESSION: 1. Interval development of moderate to marked distal esophageal wall thickening which favors esophagitis. 2. Mild wall thickening of the descending colon with minimal pericolonic infiltration and possible mild rectal wall thickening. The findings suggest a nonspecific proctocolitis. 3. Moderate distention of the bladder. 4. Stable appendiceal dilatation. No evidence for acute appendicitis however the appendix remains abnormal. Laboratory Results 05/12/17 17:35 Red Blood Count 3.96, Mean Corpuscular Volume 82.3, Mean Corpuscular Hemoglobin 30.1, Mean Corpuscular Hemoglobin Concent 36.5, Mean Platelet Volume 9.1, Neutrophils (%) (Auto) 86.6, Lymphocytes (%) (Auto) 7.7, Monocytes (%) (Auto) 5.3, Eosinophils (%) (Auto) 0.0, Basophils (%) (Auto) 0.1, Neutrophils # (Auto) 8.65, Lymphocytes # (Auto) 0.77, Monocytes # (Auto) 0.53, Eosinophils # (Auto) 0.00, Basophils # (Auto) 0.01 05/12/17 17:35 Test 05/12/17 17:35 05/12/17 17:41 05/12/17 18:05 White Blood Count 9.99 K/uL (4.8-10.8) Red Blood Count 3.96 M/uL (4.7-6.1) Hemoglobin 11.9 g/dL (14.0-18.0) Hematocrit 32.6 % (42-52) Mean Corpuscular Volume 82.3 fL (80-100) Mean Corpuscular Hemoglobin 30.1 pg (25-34) Mean Corpuscular Hemoglobin Concent 36.5 g/dl (32-36) Platelet Count 188 K/uL (130-400) Mean Platelet Volume 9.1 fL (7.4-10.4) Neutrophils (%) (Auto) 86.6 % Lymphocytes (%) (Auto) 7.7 % Monocytes (%) (Auto) 5.3 % Eosinophils (%) (Auto) 0.0 % Basophils (%) (Auto) 0.1 % Neutrophils # (Auto) 8.65 K/uL (1.4-6.5) Lymphocytes # (Auto) 0.77 K/uL (1.2-3.4) Monocytes # (Auto) 0.53 K/uL (0.11-0.59) Eosinophils # (Auto) 0.00 K/uL (0-0.5) Basophils # (Auto) 0.01 K/uL (0-0.2) RDW Standard Deviation 41.8 fL (36.4-46.3) RDW Coefficient of Variation 13.9 % (11.5-14.5) Immature Granulocyte % (Auto) 0.3 % Immature Granulocyte # (Auto) 0.03 K/uL (0.00-0.02) Estimated GFR () 62.6 Estimated GFR (Non- 54.0 BUN/Creatinine Ratio 10.5 (10-20) Calcium Level 10.2 mg/dl (8.5-10.1) Total Bilirubin 0.7 mg/dl (0.2-1) Direct Bilirubin 0.2 mg/dl (0-0.2) Aspartate Amino Transf (AST/SGOT) 11 U/L (15-37) Alanine Aminotransferase (ALT/SGPT) 20 U/L (12-78) Alkaline Phosphatase 112 U/L (45-117) Total Protein 8.4 gm/dl (6.4-8.2) Albumin 3.6 gm/dl (3.4-5.0) Lipase 37 U/L (73-393) Beta-Hydroxybutyric Acid 18.13 mg/dL (0.2-2.81) Bedside Hemoglobin 11.6 g/dl (14.0-18.0) Bedside Hematocrit 34 % (42-52) Bedside Sodium 136 mEq/L (135-144) Bedside Potassium 3.9 mEq/L (3.3-5.0) Bedside Chloride 92 mEq/L (101-112) Bedside Total CO2 29 mEq/l (24-31) Anion Gap 19.0 mmol/L (16-25) Bedside Blood Urea Nitrogen 15 mg/dl (7-18) Bedside Creatinine 1.2 mg/dl (0.6-1.3) Bedside Glucose (other) 435 mg/dl (70-99) Bedside Ionized Calcium (Shanda) 1.11 mmol/l (1.12-1.32) Venous Blood pH 7.46 (7.36-7.41) Venous Blood Partial Pressure CO2 44 mmHg (38.0-50.0) Venous Blood Partial Pressure O2 30 mmHg Venous Blood HCO3 30 mmol/L Venous Blood Oxygen Saturation < 60.0 % Venous Blood Base Excess 5.6 mEq/L Lactic Acid Level 1.9 mmol/L (0.4-2.0) Medications Administered Medications (Trade) Dose Ordered Sig/Cal Route Start Time Stop Time Status Last Admin Dose Admin Sodium Chloride 2,000 ml @ 999 mls/hr Q2H1M STAT IV 05/12/17 17:19 05/12/17 19:19 DC 05/12/17 17:46 999 MLS/HR Ondansetron HCl (Zofran Inj) 4 mg NOW STAT IV 05/12/17 17:19 05/12/17 17:23 DC 05/12/17 17:46 4 MG Hydromorphone HCl (Dilaudid Inj) 0.5 mg NOW STAT IV 05/12/17 17:19 05/12/17 17:23 DC 05/12/17 17:46 0.5 MG Metoclopramide HCl (Reglan Inj) 10 mg NOW STAT IV 05/12/17 18:11 05/12/17 18:12 DC 05/12/17 18:18 10 MG Hydromorphone HCl (Dilaudid Inj) 0.5 mg NOW STAT IV 05/12/17 18:42 05/12/17 18:43 DC 05/12/17 19:20 0.5 MG Promethazine HCl 12.5 mg/Sodium Chloride 50.5 ml @ 204 mls/hr NOW STAT IV 05/12/17 18:42 05/12/17 18:56 DC 05/12/17 19:23 204 MLS/HR Pantoprazole Sodium 40 mg/ Syringe 10 ml @ 5 mls/min NOW STAT IV 05/12/17 19:50 05/12/17 19:52 DC 05/12/17 20:42 5 MLS/MIN Acetaminophen 100 ml @ 400 mls/hr NOW STAT IV 05/12/17 21:26 05/12/17 21:40 DC 05/12/17 21:39 400 MLS/HR Al Hydroxide/Mg Hydroxide (Maalox Susp) 30 ml STK-MED ONCE .ROUTE 05/12/17 21:35 05/12/17 21:36 DC 05/12/17 21:37 30 ML Lidocaine HCl (Viscous Lidocaine 2% Soln) 20 ml STK-MED ONCE .ROUTE 05/12/17 21:35 05/12/17 21:36 DC 05/12/17 21:37 10 ML ECG Indication: tachycardia, vomiting Rate (beats per minute): 114 Rhythm: sinus tachycardia Findings: no acute ischemic change, no ectopy Change: no significant change (rate is increased, but no other significant changes noted when compared to EKG from 05/06/2017) Medical Decision CC: Patient presenting with complaint of abdominal pain, nausea, vomiting, diarrhea Interpretation of Labs: No leukocytosis, mild anemia (improved from baseline), hyperglycemia, no other significant electrolyte abnormalities, slightly elevated creatinine appears improved from previous labs, normal liver enzymes and lipase. Lactic acid normal. Negative troponin. Patient declined to provide urine sample for UA. Differential Diagnosis: Includes, but not limited to gastroenteritis, gastritis , gastroparesis, DKA, dehydration, electrolyte imbalance, anemia, cyclic vomiting syndrome, ACS, sepsis/bacteremia, among others. Medication Reconciliation: I attest that I have personally reviewed the patient' s current medication list. Vital signs review: I reviewed the patient's vital signs and interpret them as follows: T: Afebrile; BP: Hypertensive; HR: Tachycardic; RR: Within normal limits; Pulse Ox: Within normal limits on room air. Blood pressure screening: The patient was found to have an elevated blood pressure, was felt to be situational as this was improved after treatment of symptoms. Summary: Patient was evaluated at bedside, history and physical exam performed. Patient is alert, obviously uncomfortable and actively dry heaving, slightly pale. Neurologically intact, oriented 4. Patient does appear moderately dehydrated and is noted to be tachycardic. Abdomen is diffusely tender throughout, with some guarding, most tender on the left. EKG reviewed at bedside, sinus tachycardia and not significantly changed from previous. Orders were placed at bedside for labs, UA and culture, blood cultures, IV fluid bolus 2, IV Dilaudid and Zofran for pain and nausea, chest x-ray, CT abdomen/pelvis evaluate for abdominal pain. Patient discussed with Dr. Griffin, who agrees with my assessment and plan. The patient received additional Dilaudid, Reglan, and Phenergan for his pain and nausea, with good improvement in symptoms after receiving these medications. Labs reviewed as above, hyperglycemia, however no acidosis and normal gap. Hyperglycemia improved after IV fluids. Chest x-ray shows no acute abnormalities. CT imaging does show some interval development of esophagitis which is most likely secondary to patient's persistent vomiting, no other acute abnormalities. Patient reassessed multiple times throughout ED stay, nausea and vomiting have improved, pain is improved, and patient is noted to be sleeping several times on reassessment. Upon waking, patient does have some intermittent dry heaves, but has not had any vomiting while in the department. The patient was given some Gatorade, which he has been able to keep down. Tachycardia and hypertension also improved. I had a long discussion at the bedside with the patient and his regarding disposition, since patient's symptoms have improved and he has been able to tolerate PO fluids without persistent vomiting, as well as no significant lab or imaging findings today to warrant an admission, and feel the patient is best suited for discharge home. The patient and his agreed. I did strongly encourage him to call his PCP tomorrow to arrange a close follow- up, and to also touch base with his [facility] [place] in keep his scheduled follow-up. I did also discuss return precautions should his symptoms return/worsen, he verbalized understanding. Patient was discharged home in stable condition. Medication Reconcilliation Current Medication List: was personally reviewed by me Blood Pressure Screening Patient's blood pressure: Elevated blood pressure Blood pressure disposition: Elevated BP felt to be situational Impression Primary Impression: NAUSEA WITH VOMITING, UNSPECIFIED Additional Impression: EPIGASTRIC PAIN Departure Information Dispostion Home / Self-Care Condition GOOD Referrals Bran Burgess M.D. (PCP) Patient Instructions ED Diet Vomiting Diarrhea, ED GERD, ED Nausea Vomiting, [facility] Additional Instructions Call your primary care provider tomorrow morning to set up a follow-up appointment. Keep your scheduled appointment with your [facility] [place]. Continue to take your home pain medications and antinausea medications as needed. Take Pepcid (famotidine) or Zantac (ranitidine) twice a day as needed for stomach pain and nausea. These medications are available tild-vce-onimira. Drink plenty of fluids to stay hydrated. Stay on clear liquids and bland foods until your symptoms are starting to improve. Please return to the emergency department for any worsening symptoms, including severe worsening pain, intractable vomiting and unable to keep down any fluids, fevers > 101.5, severe dizziness or passing out, blood in the vomit or stool, inability to urinate for more than 8 hours, or any other concerns. Problem Qualifiers
--- NOTE | 2017-05-12 18:10 | DIAGNOSTIC IMAGING REPORT ---
CHEST ONE VIEW PORTABLE CLINICAL HISTORY: sepsis workup COMPARISON STUDY: Chest radiograph and chest CT April 25, 2017. FINDINGS: No pneumothorax is identified. Blunting of the left costophrenic angle is likely unchanged. There are post surgical findings with the left hemithorax with volume loss. There is no evidence of pulmonary edema. There is no consolidation to suggest pneumonia. IMPRESSION: No acute cardiopulmonary findings. No change in appearance of the chest. Electronically signed by: Bryce Perez M.D. 05/12/2017 6:08 PM Dictated Date/Time: 05/12/2017 6:07 PM
[2017-05-12] MEDS ORDERED: METOCLOPRAMIDE HCL INJ 5 MG/ML 2 ML VIAL IV STA (18:11)
[2017-05-12 18:22] LABS: ALBUMIN 3.6 gm/dl (3.4-5.0); ALKALINE PHOSPHATASE 112 U/L (45-117); ALT/SGPT 20 U/L (12-78); AST/SGOT 11 U/L (15-37); BLOOD UREA NITROGEN 16 mg/dl (7-18); CALCIUM 10.2 mg/dl (8.5-10.1); CARBON DIOXIDE 30 mmol/L (21-32); CREATININE 1.48 mg/dl (0.60-1.40); GLUCOSE 416 mg/dl (70-99); LIPASE 37 U/L (73-393); POTASSIUM 3.9 mmol/L (3.5-5.1); SODIUM 134 mmol/L (136-145); TOTAL PROTEIN 8.4 gm/dl (6.4-8.2)
[2017-05-12] MEDS ORDERED: INSDGIPEN SQ (18:25)
[2017-05-12 18:31] LABS: ISTAT CREATININE 1.2 mg/dl (0.6-1.3); ISTAT IONIZED CALCIUM 1.11 mmol/l (1.12-1.32); ISTAT POTASSIUM 3.9 mEq/L (3.3-5.0)
[2017-05-12] MEDS ORDERED: PROMETHAZINE HCL INJ 12.5 MG in SODIUM CHLORIDE 0.9% 50ML 50 ML IV STA (18:42)
--- NOTE | 2017-05-12 19:05 | DIAGNOSTIC IMAGING REPORT ---
CT OF THE ABDOMEN AND PELVIS WITH CONTRAST CLINICAL HISTORY: Abdominal pain, nausea and vomiting. History of lung cancer and psoas abscess. COMPARISON STUDY: CT of the abdomen and pelvis April 25, 2017. TECHNIQUE: Following IV administration of 70 mL of Optiray-320, axial images of the abdomen and pelvis were obtained from the lung bases to the proximal femurs. Images were reviewed in the axial, sagittal, and coronal planes. IV contrast was administered without complication. A dose lowering technique was utilized adhering to the principles of ALARA. CT DOSE: 401.45 mGy.cm FINDINGS: Visualized portions of the lower chest demonstrate moderate to severe concentric wall thickening of the esophagus which has developed since CT of April 25, 2017. A trace left pleural effusion is unchanged. There is no biliary ductal dilatation status post cholecystectomy. A 1.8 cm fat-containing right adrenal lesion is unchanged and consistent with a myelolipoma. The spleen, adrenal glands, kidneys and pancreas are unremarkable with the exception of pancreatic glandular atrophy. There is no pancreatic ductal dilatation. A left upper quadrant electronic device is noted. This may reflect a stimulator. There is no pneumatosis, free air or portal venous gas. No lymphadenopathy is present. There is moderate distention of the bladder. There is mild wall thickening of the descending colon with mild pericolonic infiltration. There may be mild rectal wall thickening. No suspicious osseous lesions are present. Major vasculature of the abdomen and pelvis is patent. Appendiceal dilatation is unchanged. There is no periappendiceal infiltration. IMPRESSION: 1. Interval development of moderate to marked distal esophageal wall thickening which favors esophagitis. 2. Mild wall thickening of the descending colon with minimal pericolonic infiltration and possible mild rectal wall thickening. The findings suggest a nonspecific proctocolitis. 3. Moderate distention of the bladder. 4. Stable appendiceal dilatation. No evidence for acute appendicitis however the appendix remains abnormal. Electronically signed by: Bryce Perez M.D. 05/12/2017 7:03 PM Dictated Date/Time: 05/12/2017 6:49 PM
[2017-05-12] MEDS ORDERED: PANTOprazole INJ 40 MG in SYRINGE 0 ML IV STA (19:50)
[2017-05-12] MEDS ORDERED: GI COCKTAIL PO STA (21:26)
[2017-05-12] MEDS ORDERED: ACETAMINOPHEN IV 100 ML IV STA (21:26)
[2017-05-12] MEDS ORDERED: ALUMINUM/MAGNESIUM SUSP 30 ML UDC ONE (21:35)
[2017-05-12] MEDS ORDERED: LIDOCAINE HCL 2% VISC SOLN 20 ML UDC ONE (21:35)
[2017-05-12 22:01] VITALS: BP 125/85
[2017-05-12 22:22] VITALS: PULSE 102; O2SAT 96
== END 2017-05-12 22:31 | disposition home or self-care (01) ==
LOC: C.EDB 16:57 → C.EDA 22:31
DX: R11.2 Nausea with vomiting, unspecified (principal); R10.13 Epigastric pain; R19.7 Diarrhea, unspecified; E11.43 Type 2 diabetes mellitus with diabetic autonomic (poly)neuropathy; G89.29 Other chronic pain; C34.90 Malignant neoplasm of unspecified part of unspecified bronchus or lung; G40.909 Epilepsy, unspecified, not intractable, without status epilepticus; R00.0 Tachycardia, unspecified; Z96.659 Presence of unspecified artificial knee joint; Z87.891 Personal history of nicotine dependence; Z79.4 Long term (current) use of insulin; Z83.3 Family history of diabetes mellitus; Z80.51 Family history of malignant neoplasm of kidney

== ENCOUNTER 2017-05-15 15:09 | Inpatient (IN) | payer OTHER ==
[~2017-05-15] VITALS: Ht 172.7 cm; Wt 84.4 kg
[~2017-05-15 15:09] MED LIST changes: +INSDGIPEN SQ; -INSU100I23 SQ
[2017-05-15] MEDS ORDERED: SODIUM CHLORIDE 0.9% 1000ML 1,000 ML IV STA (15:25)
[2017-05-15] MEDS ORDERED: ONDANSETRON INJ 2 MG/ML 2 ML VIAL IV STA (15:25)
--- NOTE | 2017-05-15 15:31 | EMERGENCY ROOM VISIT NOTE ---
History Report prepared by Nedra: Corina Nugent Under the Supervision of: Dr. Rodrigo Kuhn M.D. First contact with patient: 15:15 Chief Complaint: VOMITING Stated Complaint: NAUSEA,VOMITING,PAIN History of Present Illness The patient is a 51 year old male who presents to the Emergency Room with complaints of worsening nausea beginning three days ago. The patient also reports worsening vomiting beginning three days ago. He notes chills and diarrhea beginning yesterday. He denies any fever, cough, or congestion. The patient states he was in the ED on Saturday, three days ago for nausea and was discharged with medication to "settle his stomach". He was told his symptoms on Saturday were a result of his diabetes and gastroparesis. The patient reports he was discharged this past Saturday, seven days ago, after being admitted for 2 weeks for the same symptoms. The patient has a gastric stimulator and is getting it adjusted on July 03. He reports his stimulator was put in at [place], [place] but states his adjustment surgery is being done elsewhere. Source of History: patient Onset: three days ago Position: other (generalized) Quality: other (nausea) Timing: worsening Associated Symptoms: + chills, + nausea, + vomiting, + diarrhea, No fevers, No cough Review of Systems See HPI for pertinent positives and negatives. A total of ten systems were reviewed and were otherwise negative. Past Medical & Surgical Medical Problems: (1) Chronic pain (2) Diabetic autonomic neuropathy (3) Diabetic peripheral neuropathy (4) Gastroparesis (5) Hypertension (6) Hypomagnesemia (7) Infection of intrathecal pump (8) Lung cancer (9) Orthostatic hypotension (10) Pneumonia (11) Seizure disorder Surgical Problems: (1) H/O colonoscopy (2) H/O esophagogastroduodenoscopy (3) History of cholecystectomy (4) History of tonsillectomy and adenoidectomy (5) Hx of total knee arthroplasty (6) S/P lobectomy of lung Family History Diabetes mellitus FATHER MOTHER GRANDFATHER Renal cancer SISTER Social History Smoking Status: Never Smoker Alcohol Use: none Drug Use: none Marital Status: Housing Status: lives with family Occupation Status: disabled Current/Historical Medications Scheduled Amlodipine (Norvasc), 5 MG PO DAILY Duloxetine HCl (Duloxetine HCl), 30 MG PO QAM Fentanyl (Fentanyl), 100 MCG TOP Q2D Ferrous Sulfate (Kp Ferrous Sulfate), 325 MG PO BID Gabapentin (Gabapentin), 300 MG PO TID Hydrochlorothiazide (Hydrochlorothiazide), 12.5 MG PO DAILY Insulin Glargine (Lantus Solostar), 15 UNITS SQ QPM Insulin Lispro (Human) (Humalog), 0 SQ UD Levetiracetam (Keppra), 1,000 MG PO BID Lisinopril (Lisinopril), 40 MG PO DAILY Metoprolol Tartrate (Lopressor) (Lopressor), 75 MG PO BID Mirtazapine (Mirtazapine), 15 MG PO HS Multiple Vitamin (Multivitamins), 1 CAP PO QAM Omeprazole (Prilosec), 20 MG PO DAILY Scheduled PRN Acetaminophen (Tylenol), 1,000 MG PO Q6H PRN for Pain Albuterol Hfa (Ventolin Hfa), 2 PUFFS INH Q6H PRN for Wheezing Diphenoxylate/Atropine (Diphenoxylate/Atropine 2.5-0.025 mg), 1 TAB PO BID PRN for Diarrhea Docusate Sodium (Docusate Sodium), 200 MG PO DAILY PRN for Constipation Epinephrine (Epipen), 0.3 MG IM UD PRN for ALLERGIC REACTION Ondansetron (Ondansetron HCl), 8 MG PO Q8 PRN for Nausea Oxycodone Hcl (Oxycodone Hcl), 1 TAB PO Q4H PRN for Pain Prochlorperazine Maleate (Compazine), 10 MG PO Q6H PRN for Nausea or Vomiting Allergies Coded Allergies: BEE STING (Verified Allergy, Mild, SWELLING AT SITE, SOB, 05/12/17) Penicillins (Unverified Allergy, Unknown, "SINCE "-Amoxicillin, ) Metoclopramide (Verified Adverse Reaction, Unknown, hallucinations, 05/12/17 ) Physical Exam Vital Signs Date Time Temp Pulse Resp B/P (MAP) Pulse Ox O2 Delivery O2 Flow Rate FiO2 05/15/17 17:55 100 20 158/99 100 Room Air 05/15/17 16:13 95 05/15/17 16:05 96 168/98 05/15/17 15:48 103 18 174/115 99 Room Air 05/15/17 15:15 37.0 110 20 115/80 100 Room Air Physical Exam GENERAL: Awake, alert, fatigued and cachetic-appearing, in no distress HENT: Normocephalic, atraumatic. Oropharynx unremarkable. Dry MM. EYES: Normal conjunctiva. Sclera non-icteric. NECK: Supple. No nuchal rigidity. FROM. No JVD. RESPIRATORY: Clear to auscultation. CARDIAC: Regular rate, normal rhythm. Extremities warm and well perfused. Pulses equal. ABDOMEN: Soft, non-distended. No tenderness to palpation. No rebound or guarding. No masses. RECTAL: Deferred. MUSCULOSKELETAL: Chest examination reveals no tenderness. The back is symmetrical on inspection without obvious abnormality. There is no CVA tenderness to palpation. No joint edema. LOWER EXTREMITIES: Calves are equal size bilaterally and non-tender. No edema. No discoloration. NEURO: Normal sensorium. No sensory or motor deficits noted. SKIN: No rash or jaundice noted. Medical Decision & Procedures ER Provider Diagnostic Interpretation: Radiology results as stated below per my review and radiologist interpretation: CHEST ONE VIEW PORTABLE FINDINGS: There are stable postoperative findings within the left thorax with left lung volume loss. Hazy left suprahilar opacity likely reflects postsurgical change. This is unchanged. Blunting of the left costophrenic angle is unchanged. No evidence for pulmonary edema. There is no consolidation to suggest pneumonia. Cardiomediastinal silhouette is normal. There is no lucency under the hemidiaphragms to indicate pneumoperitoneum on this exam. IMPRESSION: No acute cardiopulmonary findings. No change in appearance of the chest with stable postoperative findings within the left hemithorax. Electronically signed by: Bryce Perez M.D. Laboratory Results 05/15/17 15:43 Red Blood Count 3.54, Mean Corpuscular Volume 82.2, Mean Corpuscular Hemoglobin 29.9, Mean Corpuscular Hemoglobin Concent 36.4, Mean Platelet Volume 9.0, Neutrophils (%) (Auto) 72.7, Lymphocytes (%) (Auto) 16.8, Monocytes (%) (Auto) 8.3, Eosinophils (%) (Auto) 1.8, Basophils (%) (Auto) 0.1, Neutrophils # (Auto) 4.90, Lymphocytes # (Auto) 1.13, Monocytes # (Auto) 0.56, Eosinophils # (Auto) 0.12, Basophils # (Auto) 0.01 05/15/17 15:43 Test 05/15/17 15:35 05/15/17 15:43 05/15/17 16:01 Influenza Type A Antigen Neg for Influ A (NEG) Influenza Type B Antigen Neg for Influ B (NEG) White Blood Count 6.74 K/uL (4.8-10.8) Red Blood Count 3.54 M/uL (4.7-6.1) Hemoglobin 10.6 g/dL (14.0-18.0) Hematocrit 29.1 % (42-52) Mean Corpuscular Volume 82.2 fL (80-100) Mean Corpuscular Hemoglobin 29.9 pg (25-34) Mean Corpuscular Hemoglobin Concent 36.4 g/dl (32-36) Platelet Count 199 K/uL (130-400) Mean Platelet Volume 9.0 fL (7.4-10.4) Neutrophils (%) (Auto) 72.7 % Lymphocytes (%) (Auto) 16.8 % Monocytes (%) (Auto) 8.3 % Eosinophils (%) (Auto) 1.8 % Basophils (%) (Auto) 0.1 % Neutrophils # (Auto) 4.90 K/uL (1.4-6.5) Lymphocytes # (Auto) 1.13 K/uL (1.2-3.4) Monocytes # (Auto) 0.56 K/uL (0.11-0.59) Eosinophils # (Auto) 0.12 K/uL (0-0.5) Basophils # (Auto) 0.01 K/uL (0-0.2) RDW Standard Deviation 41.3 fL (36.4-46.3) RDW Coefficient of Variation 13.7 % (11.5-14.5) Immature Granulocyte % (Auto) 0.3 % Immature Granulocyte # (Auto) 0.02 K/uL (0.00-0.02) Anion Gap 8.0 mmol/L (3-11) Est Creatinine Clear Calc Drug Dose 57.9 ml/min Estimated GFR () 63.6 Estimated GFR (Non- 54.9 BUN/Creatinine Ratio 11.7 (10-20) Calcium Level 9.0 mg/dl (8.5-10.1) Phosphorus Level 3.5 mg/dl (2.5-4.9) Magnesium Level 1.3 mg/dl (1.8-2.4) Total Bilirubin 0.6 mg/dl (0.2-1) Direct Bilirubin 0.1 mg/dl (0-0.2) Aspartate Amino Transf (AST/SGOT) 11 U/L (15-37) Alanine Aminotransferase (ALT/SGPT) 18 U/L (12-78) Alkaline Phosphatase 88 U/L (45-117) Total Protein 7.7 gm/dl (6.4-8.2) Albumin 3.4 gm/dl (3.4-5.0) Lipase 31 U/L (73-393) Lactic Acid Level 1.4 mmol/L (0.4-2.0) Laboratory results reviewed by me Medications Administered Medications (Trade) Dose Ordered Sig/Cal Route Start Time Stop Time Status Last Admin Dose Admin Sodium Chloride 1,000 ml @ 999 mls/hr Q1H1M STAT IV 05/15/17 15:25 05/15/17 16:25 DC 05/15/17 15:42 999 MLS/HR Ondansetron HCl (Zofran Inj) 4 mg NOW STAT IV 05/15/17 15:25 05/15/17 15:28 DC 05/15/17 15:42 4 MG Famotidine (Pepcid 20mg Iv Push) 20 mg NOW STAT IV 05/15/17 15:50 05/15/17 15:52 DC 05/15/17 16:04 20 MG Fosaprepitant 150 mg/Sodium Chloride 150 ml @ 300 mls/hr ONE ONCE IV 05/15/17 17:30 05/15/17 17:59 DC 05/15/17 18:00 300 MLS/HR Fentanyl Citrate (Fentanyl Inj) 50 mcg NOW STAT IV 05/15/17 18:03 05/15/17 18:04 DC 05/15/17 18:14 50 MCG Ondansetron HCl (Zofran Inj) 4 mg Q6H PRN IV 05/15/17 18:00 06/14/17 17:59 05/15/17 23:37 4 MG ED Course 1520: The patient was evaluated in room B11B. A complete history and physical exam was performed. 1713: I discussed the patient with Dr. Pryor - He will evaluate the patient for further treatment. Medical Decision I reviewed the patient's past medical history, medications, and the nursing notes as described above. Differential diagnoses: gastroparesis, influenza, viral syndrome, gastroenteritis, dehydration, electrolyte abnormality, pneumonia, bronchitis, UTI. The patient is a 21-year-old gentleman with a past medical history of gastroparesis followed by Dr. Burgess in the setting of insulin-dependent diabetes status post gastric pacemaker presents emergency Department with persistent nausea vomiting and diarrhea after 2 week admission in April and repeat ED visit 2 days [facility] per hpi. On arrival the patient is uncomfortable but in no acute distress, afebrile stable vital signs. Labs unremarkable including wbc and lactate wnl. Cr at baseline. Patient given IVF and zofran with marginal improvement. Given repeat ED visit for persistent sx, patient requesting admission for sx control given his appointment for adjustment of his gastric stimulator is not until Februrary. Case d/w Carol Zamarripa hospitalist, who will admit the patient for further management. Emend ordered per recs given success with sx improvement in past. Medication Reconcilliation Current Medication List: was personally reviewed by me Blood Pressure Screening Patient's blood pressure: Elevated blood pressure Blood pressure disposition: Referred to PCP (evaluated by hospitalist ) Consults Time Called: 1709 Consulting Physician: Dr. Pryor Returned Call: 1713 I discussed the patient with Dr. Pryor - He will evaluate the patient for further treatment. Impression Primary Impression: Gastroparesis Scribe Attestation The scribe's documentation has been prepared under my direction and personally reviewed by me in its entirety. I confirm that the note above accurately reflects all work, treatment, procedures, and medical decision making performed by me. Departure Information Dispostion Being Evaluated By Hospitalist Referrals Bran Burgess M.D. (PCP) Patient Instructions My [facility]
[2017-05-15] MEDS ORDERED: FAMOTIDINE 20MG/5ML IV PUSH IV STA (15:50)
[2017-05-15 16:00] LABS: BASO % 0.1 %; BASO ABS # 0.01 K/uL (0-0.2); EOS % 1.8 %; EOS ABS # 0.12 K/uL (0-0.5); HEMATOCRIT 29.1 % (42-52); HEMOGLOBIN 10.6 g/dL (14.0-18.0); IG# 0.02 K/uL (0.00-0.02); LYMPH % 16.8 %; LYMPH ABS # 1.13 K/uL (1.2-3.4); MEAN CELL VOLUME 82.2 fL (80-100); MEAN CORPUSCULAR HEMOGLOBIN 29.9 pg (25-34); MEAN CORPUSCULAR HGB CONC 36.4 g/dl (32-36); MONO % 8.3 %; MONO ABS # 0.56 K/uL (0.11-0.59); NEUT % 72.7 %; PLATELET COUNT 199 K/uL (130-400); RED CELL DISTRIBUTION WIDTH CV 13.7 % (11.5-14.5); RED CELL DISTRIBUTION WIDTH SD 41.3 fL (36.4-46.3); WHITE BLOOD COUNT 6.74 K/uL (4.8-10.8)
[2017-05-15] MEDS ORDERED: NORCO PO (16:18)
[2017-05-15 16:20] LABS: ALBUMIN 3.4 gm/dl (3.4-5.0); CREATININE 1.46 mg/dl (0.60-1.40); POTASSIUM 3.4 mmol/L (3.5-5.1)
[2017-05-15 16:23] LABS: PHOSPHORUS 3.5 mg/dl (2.5-4.9); TOTAL PROTEIN 7.7 gm/dl (6.4-8.2)
--- NOTE | 2017-05-15 16:26 | DIAGNOSTIC IMAGING REPORT ---
CHEST ONE VIEW PORTABLE CLINICAL HISTORY: Abdominal pain. COMPARISON STUDY: Chest CT April 25, 2017 and chest radiograph May 12, 2017. FINDINGS: There are stable postoperative findings within the left thorax with left lung volume loss. Hazy left suprahilar opacity likely reflects postsurgical change. This is unchanged. Blunting of the left costophrenic angle is unchanged. No evidence for pulmonary edema. There is no consolidation to suggest pneumonia. Cardiomediastinal silhouette is normal. There is no lucency under the hemidiaphragms to indicate pneumoperitoneum on this exam. IMPRESSION: No acute cardiopulmonary findings. No change in appearance of the chest with stable postoperative findings within the left hemithorax. Electronically signed by: Bryce Perez M.D. 05/15/2017 4:24 PM Dictated Date/Time: 05/15/2017 4:22 PM
[2017-05-15 16:42] LABS: INFLUENZA B ANTIGEN Neg for Influ B (NEG)
[2017-05-15] MEDS ORDERED: OXYCODONE HCL IR 5 MG TAB (IMMEDIATE RELEASE) PO STA (17:23)
[2017-05-15] MEDS ORDERED: FOSAPREPITANT DIMEGLUMINE INJ 150 MG in SODIUM CHLORIDE 0.9% 150ML 145 ML IV ONE (17:30)
[2017-05-15] MEDS ORDERED: NITROGLYCERIN 0.4 MG SL PER TAB CHARGE SL PRN (18:00)
[2017-05-15] MEDS ORDERED: MAGNESIUM HYDROXIDE SUSP 30 ML UDC PO PRN (18:00)
[2017-05-15] MEDS ORDERED: ACETAMINOPHEN 325 MG TAB PO PRN (18:00)
[2017-05-15] MEDS ORDERED: FENTANYL CITRATE INJ 50 MCG/1 ML 2 ML VIAL IV STA (18:03)
[2017-05-15] MEDS ORDERED: POTASSIUM CHLORIDE 10 MEQ TABCR PO STA (18:10)
[2017-05-15] MEDS ORDERED: SODIUM CHLORIDE 0.9% 1000ML 1,000 ML IV SCH (18:15)
[2017-05-15] MEDS ORDERED: GLUCOSE 40% GEL 15 GM TUBE PO PRN (18:30)
[2017-05-15] MEDS ORDERED: GLUCAGON FOR INJ 1 MG VIAL SQ PRN (18:30)
[2017-05-15] MEDS ORDERED: GLUCOSE 10 TABS/TUBE PO PRN (18:30)
[2017-05-15] MEDS ORDERED: DEXTROSE 50% 50 ML SYR IV PRN (18:30)
[2017-05-15] MEDS ORDERED: OXYCODONE HCL IR 5 MG TAB (IMMEDIATE RELEASE) PO PRN (18:45)
[2017-05-15] MEDS ORDERED: MAGNESIUM SULFATE 1GM / D5W 1 GM BAG ONE (19:27)
[2017-05-15 19:45] VITALS: BP 129/87; PULSE 102; TEMP 36.8; O2SAT 99; BMI 25.8
--- NOTE | 2017-05-15 20:08 | History and Physical ---
History & Physical Date & Time of Service: May 15, 2017 at 18:40 Chief Complaint: Nausea,Vomiting,Pain Primary Care Physician: Bran Burgess M.D. History of Present Illness Source: patient, family, clinic records, hospital records Pt is 51 y/o M with PMH DM, neuropathy, gastroparesis with gastric stimulator placed 1 year ago at [facility], HTN, Lung CA s/p resection and chemo presented to ER with c/o N/V. Pt hx hospitalization [facility] [place] beginning of [place] 2017 for N/V, gastroparesis and pt reports hallucinations from Reglan and was d/c home with Zofran and Phenergan without much relief. Pt admitted here 04/25/17-05/08/17 for N/V/D, gastroparesis. He states since d/c has continued loose stools a couple of times a day. Tried lomotil without much relief. He taking zofran and compazine without much relief. Reports was vomiting a couple of times a day until past couple of days with greater than 10 episodes vomiting a day and unable to eat and drink. Pt reports chronic epigastric discomfort. Reports BS 118 this am. He states is scheduled to f/u for his gastric stimulator 07/03/17 in [place]. Denies fever/chills, diaphoresis, hematemesis, melena, hematochezia, VALDEZ, syncope, vision changes, neck pain, CP, SOB, orthopnea, palpitations, cough, sore throat, choking, otalgia, rhinorrhea, extremity edema, rashes, urinary symptoms. Seen in ER afebrile. BP: 168/98, P: 110-95, 100% on RA, R: 20. Na 131 (133 corrected), K: 3.4, Cr: 1.4 (1.3 on 05/08/17). Gluc: 226, lactic acid: 1.4, Ma.3. given zofran, NSS 1L, pepcid 20 IV, emend 150mg IV, oxycodone 10mg. Past Medical/Surgical History Medical Problems: (1) Chronic pain Status: Chronic (2) Diabetic autonomic neuropathy Status: Chronic (3) Diabetic peripheral neuropathy Status: Chronic (4) Gastroparesis Permanent Comment: s/p gastric stimulator Status: Chronic (5) Hypertension Status: Chronic (6) Infection of intrathecal pump Status: Resolved (7) Lung cancer Permanent Comment: dx 01/2016; adenoCa SHAWN; + hilar nodes; s/p left upper lobectomy + chemo Status: Chronic (8) Orthostatic hypotension Status: Chronic (9) Pneumonia Status: Resolved Surgical Problems: (1) H/O colonoscopy Permanent Comment: 04/22/2013- Mildly congested and erythematous mucosa in the ascending colon. One 1 mm polyp in the ascending colon resected. One benign appearing 1 mm polyp in the rectum resected. Internal hemorrhoids; Dr. Demarco Status: Chronic (2) H/O esophagogastroduodenoscopy Permanent Comment: 01/26/2015- LA Grade B reflux esophagitis, gastritis; Dr. Major Status: Chronic (3) History of cholecystectomy Status: Chronic (4) History of tonsillectomy and adenoidectomy Status: Chronic (5) Hx of total knee arthroplasty Status: Chronic (6) S/P lobectomy of lung Permanent Comment: left upper lobectomy for adenoCa Status: Chronic Family History Diabetes mellitus FATHER MOTHER GRANDFATHER Renal cancer SISTER Social History Smoking Status: Current Every Day Smoker (quit 2000, smoked 0.5ppd x 2 years) Smokeless Tobacco Use: quit, used snuff in past Alcohol Use: none Drug Use: none Marital Status: Housing status: lives with significant other Occupational Status: disabled Multi-Drug Resistant Organisms History of MDRO: No Allergies Coded Allergies: BEE STING (Verified Allergy, Mild, SWELLING AT SITE, SOB, 05/12/17) Penicillins (Unverified Allergy, Unknown, "SINCE "-Amoxicillin, ) Metoclopramide (Verified Adverse Reaction, Unknown, hallucinations, 05/12/17 ) Home Medications Scheduled Amlodipine (Norvasc), 5 MG PO DAILY Duloxetine HCl (Duloxetine HCl), 30 MG PO QAM Fentanyl (Fentanyl), 100 MCG TOP Q2D Ferrous Sulfate (Kp Ferrous Sulfate), 325 MG PO BID Gabapentin (Gabapentin), 300 MG PO TID Hydrochlorothiazide (Hydrochlorothiazide), 12.5 MG PO DAILY Insulin Glargine (Lantus Solostar), 15 UNITS SQ QPM Insulin Lispro (Human) (Humalog), 0 SQ UD Levetiracetam (Keppra), 1,000 MG PO BID Lisinopril (Lisinopril), 40 MG PO DAILY Metoprolol Tartrate (Lopressor) (Lopressor), 75 MG PO BID Mirtazapine (Mirtazapine), 15 MG PO HS Multiple Vitamin (Multivitamins), 1 CAP PO QAM Omeprazole (Prilosec), 20 MG PO DAILY Scheduled PRN Acetaminophen (Tylenol), 1,000 MG PO Q6H PRN for Pain Albuterol Hfa (Ventolin Hfa), 2 PUFFS INH Q6H PRN for Wheezing Diphenoxylate/Atropine (Diphenoxylate/Atropine 2.5-0.025 mg), 1 TAB PO BID PRN for Diarrhea Docusate Sodium (Docusate Sodium), 200 MG PO DAILY PRN for Constipation Epinephrine (Epipen), 0.3 MG IM UD PRN for ALLERGIC REACTION Ondansetron (Ondansetron HCl), 8 MG PO Q8 PRN for Nausea Oxycodone Hcl (Oxycodone Hcl), 1 TAB PO Q4H PRN for Pain Prochlorperazine Maleate (Compazine), 10 MG PO Q6H PRN for Nausea or Vomiting Review of Systems Constitutional: + weight loss (reported approx 10 pounds over past couple of weeks), No fever, No chills, No sweats Eyes: No worsening of vision, No eye pain, No redness, No discharge ENT: No hearing loss, No unusual epistaxis, No nasal symptoms, No sore throat, No trouble swallowing Respiratory: No cough, No sputum, No wheezing, No shortness of breath, No dyspnea on exertion, No dyspnea at rest, No hemoptysis Cardiovascular: No chest pain, No orthopnea, No PND, No edema, No palpitations Abdomen: + problem reported (see HPI) Musculoskeletal: + muscle pain (chronic extremity pain - neuropathy) Genitourinary - Male: No hematuria, No dysuria, No urinary frequency, No urinary urgency Neurologic: + weakness (feels weak) Hematologic / Lymphatic: No abnormal bleeding/bruising, No clotting problems, No swollen lymph nodes, No night sweats Integumentary: No rash, No itch Physical Exam Vital Signs Date Time Temp Pulse Resp B/P (MAP) Pulse Ox O2 Delivery O2 Flow Rate FiO2 05/15/17 17:55 100 20 158/99 100 Room Air 05/15/17 16:13 95 05/15/17 16:05 96 168/98 05/15/17 15:48 103 18 174/115 99 Room Air 05/15/17 15:15 37.0 110 20 115/80 100 Room Air General Appearance: + pertinent finding (chronically ill appearing, resting in bed ) Head: normocephalic, atraumatic Eyes: normal inspection, PERRL, EOMI, sclerae normal ENT: hearing grossly normal, pharynx normal, + pertinent finding Neck: supple, no JVD, trachea midline Respiratory/Chest: chest non-tender, lungs clear, normal breath sounds, no respiratory distress Cardiovascular: regular rate, rhythm, no edema, normal peripheral pulses Abdomen/GI: normal bowel sounds, soft, + tenderness (epigastric without rebound or guarding) Back: no CVA tenderness Extremities/Musculoskelatal: normal inspection, normal capillary refill, no pedal edema, normal range of motion, non-tender Neurologic/Psych: alert, normal mood/affect, oriented x 3 Skin: normal color, warm/dry Diagnostics Laboratory Results Results Past 24 Hours Test 05/15/17 15:35 05/15/17 15:43 05/15/17 16:01 Range/Units Influenza Type A Antigen Neg for Influ A NEG Influenza Type B Antigen Neg for Influ B NEG White Blood Count 6.74 4.8-10.8 K/uL Red Blood Count 3.54 4.7-6.1 M/uL Hemoglobin 10.6 14.0-18.0 g/dL Hematocrit 29.1 42-52 % Mean Corpuscular Volume 82.2 80-100 fL Mean Corpuscular Hemoglobin 29.9 25-34 pg Mean Corpuscular Hemoglobin Concent 36.4 32-36 g/dl Platelet Count 199 130-400 K/uL Mean Platelet Volume 9.0 7.4-10.4 fL Neutrophils (%) (Auto) 72.7 % Lymphocytes (%) (Auto) 16.8 % Monocytes (%) (Auto) 8.3 % Eosinophils (%) (Auto) 1.8 % Basophils (%) (Auto) 0.1 % Neutrophils # (Auto) 4.90 1.4-6.5 K/uL Lymphocytes # (Auto) 1.13 1.2-3.4 K/uL Monocytes # (Auto) 0.56 0.11-0.59 K/uL Eosinophils # (Auto) 0.12 0-0.5 K/uL Basophils # (Auto) 0.01 0-0.2 K/uL RDW Standard Deviation 41.3 36.4-46.3 fL RDW Coefficient of Variation 13.7 11.5-14.5 % Immature Granulocyte % (Auto) 0.3 % Immature Granulocyte # (Auto) 0.02 0.00-0.02 K/uL Sodium Level 131 136-145 mmol/L Potassium Level 3.4 3.5-5.1 mmol/L Chloride Level 94 98-107 mmol/L Carbon Dioxide Level 29 21-32 mmol/L Anion Gap 8.0 3-11 mmol/L Blood Urea Nitrogen 17 7-18 mg/dl Creatinine 1.46 0.60-1.40 mg/dl Est Creatinine Clear Calc Drug Dose 57.9 ml/min Estimated GFR () 63.6 Estimated GFR (Non- 54.9 BUN/Creatinine Ratio 11.7 10-20 Random Glucose 226 70-99 mg/dl Calcium Level 9.0 8.5-10.1 mg/dl Phosphorus Level 3.5 2.5-4.9 mg/dl Magnesium Level 1.3 1.8-2.4 mg/dl Total Bilirubin 0.6 0.2-1 mg/dl Direct Bilirubin 0.1 0-0.2 mg/dl Aspartate Amino Transf (AST/SGOT) 11 15-37 U/L Alanine Aminotransferase (ALT/SGPT) 18 12-78 U/L Alkaline Phosphatase 88 45-117 U/L Total Protein 7.7 6.4-8.2 gm/dl Albumin 3.4 3.4-5.0 gm/dl Lipase 31 73-393 U/L Lactic Acid Level 1.4 0.4-2.0 mmol/L Diagnostic Radiology CXR: IMPRESSION: No acute cardiopulmonary findings. No change in appearance of the chest with stable postoperative findings within the left hemithorax. Impression Assessment and Plan INTRACTABLE N/V/D/GASTROPARESIS Pt with hx gastroparesis, N/V/D, has gastric stimulator. Not controlled on Zofran, compazine, Phenergan. Reglan caused hallucinations. Negative stool cultures and Cdiff in past admission. Pt given Zofran, pepcid 20mg IV, Emend IV in ER, oxycodone 10mg po, fentanyl IV -clear liquid diet -protonix 40mg IV -NSS @100ml/hr -cbc, prp in am -GI consult, appreciate input HYPOKALEMIA K: 3.4 -replace -prp in am HYPOMAGNESIA Ma.3. Secondary to GI losses -2mg magnesium sulfate IV -mag in am HYPONATREMIA Na: 131, corrected 133 with gluc of 226 today. Probable secondary to vomiting -IVF -follow prp HTN BP in ER 168/98 - 170/113. -labetalol 10mg IV Q6H -hold HCTZ with dehydration -hold lisinopril with pts Cr 1.3 -hold po metoprolol with N/V, until improves -continue to monitor, may need to adjust DM II Glucose: 226. HA1C: 7.9 on 04/26/17 -novolog sliding scale per protocol -will lantus home dose, ordered BID IVAN Cr: 1.4, was 1.3 on 05/08/17. pt with volume depletion -IVF -follow renal functions DIABETIC NEUROPATHY Follows with Dr Hope pain management. On fentanyl patch and oxycodone. New patch placed this am. Hx past intrathecal pump removed secondary to infection -continue fentanyl patch, changed Q48H -continue oxycodone -will hold gabapentin at this with pt's vomiting SEIZURE DISORDER No recent seizure -continue levetiracetam HX LUNG CA Adenocarcinoma of lung, s/p resection and chemo -followed with Dr Keith today DVT PROPHYLAXIS -heparin SQ DISPOSITION -admit tele -Full Code as per discussion with pt -Follows with Dr Burgess for routine care Pt was seen with Dr Wells. See addendum Attending Note: Patient is a 51 yr male with history of severe gastroparesis, multiple admissions in the past presents with history of nausea, vomiting, abdominal pain and chronic diarrhea. He is in the process of getting his gastric stimulator adjusted on 07/03/17 in [place]. He is found to be hyponatremic, hypokalemic, Hypomagnesemic. Received a dose of Emend in ED. Physical Exam: General Appearance:Moderately built and nourished, no apparent distress Head: normocephalic, Atraumatic Eyes: normal inspection, EOMI, PERRL Neck: supple, Trachea midline Respiratory/Chest: Normal breath sounds, CTA Cardiovascular: S1, S2, +Tachycardia, No murmur Abdomen/GI:Soft, LUQ mild tender, Bowel sounds present Extremities/Musculoskelatal:normal inspection, no edema Neurologic/Psych:AAOX3, grossly no focal neurological deficits Skin:normal color,warm Assessment and Plan: Severe Gastroparesis: Received Emend in ED Intolerance to Reglan in the past Consider Imaging of abdomen if symptoms worsen GI consulted IVF Pain control clear liquid diet, advance as tolerated Hyponatremia/Hypokalemia/Hypomagnesemia Secondary to GI loses Monitor electrolytes IV fluids I personally reviewed the record. Patient is interviewed and examined at bedside. Patient's care is coordinated with Katlyn Peters PA-C. Please refer to the documentation above for details of patient's presentation and for discussion of other issues. Level of Care Telemetry Resuscitation Status FULL RESUSCITATION VTE Prophylaxis VTE Risk Assessment Done? Y/N: Yes Risk Level: Moderate Given or contraindicated: Unfractionated heparin SQ Additional Copies To Bran Burgess M.D.
[2017-05-15] MEDS ORDERED: MAGNESIUM SULFATE 1GM / D5W 1 GM in PREMIXED IN D5W 100 ML IV SCH (20:30)
[2017-05-15] MEDS ORDERED: POTASSIUM CHLR 10 MEQ / WTR 10 MEQ in PREMIXED WATER 100 ML IV SCH (20:30)
[2017-05-15] MEDS: NSS + 20MEQ KCL 1000ML 1,000 ML IV SCH (20:41)
[2017-05-15] MEDS: LEVETIRACETAM 500 MG TAB PO SCH (20:49)
[2017-05-15] MEDS: MIRTAZAPINE TAB 15 MG TAB PO SCH (20:50)
[2017-05-15] MEDS: OXYCODONE HCL IR 5 MG TAB (IMMEDIATE RELEASE) PO PRN (20:51)
[2017-05-15] MEDS: INSULIN GLARGINE SOLOSTAR 100 UNITS/ML 3 ML PEN SC SCH (20:56)
[2017-05-15] MEDS: INSULIN ASPART 100 UNITS/ML 3 ML PEN SC SCH (20:56)
[2017-05-15] MEDS: HEPARIN SOD 5000 UNIT/0.5 ML CARP SQ SCH (20:57)
[2017-05-15] MEDS ORDERED: METOPROLOL TARTRATE 25 MG TAB PO SCH (21:00)
[2017-05-15 23:20] VITALS: BP 191/115; PULSE 95; TEMP 36.9; O2SAT 100
[2017-05-15 23:27] VITALS: BP 180/100; PULSE 94
[2017-05-15] MEDS: LABETALOL HCL IV 5 MG/ML 20ML IV PRN (23:37)
[2017-05-15] MEDS: ONDANSETRON INJ 2 MG/ML 2 ML VIAL IV PRN (23:37)
[2017-05-15] MEDS: CHECK FENTANYL PATCH PLACEMENT SCH (23:39)
[2017-05-15 23:57] VITALS: BP 168/88; PULSE 89
[2017-05-16] VITALS (14 sets, daily range): BP systolic 147–193; BP diastolic 76–115; PULSE 78–98; TEMP 36.5–36.9; O2SAT 90–100
[2017-05-16] MEDS: OXYCODONE HCL IR 5 MG TAB (IMMEDIATE RELEASE) PO PRN ×4 (03:02→20:40)
[2017-05-16 06:03] LABS: HEMATOCRIT 25.8 % (42-52); HEMOGLOBIN 9.2 g/dL (14.0-18.0); MEAN CELL VOLUME 82.4 fL (80-100); MEAN CORPUSCULAR HEMOGLOBIN 29.4 pg (25-34); MEAN CORPUSCULAR HGB CONC 35.7 g/dl (32-36); MEAN PLATELET VOLUME 8.7 fL (7.4-10.4); PLATELET COUNT 153 K/uL (130-400); RED CELL DISTRIBUTION WIDTH CV 13.9 % (11.5-14.5); RED CELL DISTRIBUTION WIDTH SD 41.8 fL (36.4-46.3)
[2017-05-16 06:36] LABS: CALCIUM 8.4 mg/dl (8.5-10.1); CREATININE 1.16 mg/dl (0.60-1.40); POTASSIUM 3.7 mmol/L (3.5-5.1)
[2017-05-16] MEDS: NSS + 20MEQ KCL 1000ML 1,000 ML IV SCH ×2 (08:05→20:13)
[2017-05-16] MEDS: ONDANSETRON INJ 2 MG/ML 2 ML VIAL IV PRN (08:05)
[2017-05-16] MEDS: CHECK FENTANYL PATCH PLACEMENT SCH ×2 (08:05→15:51)
[2017-05-16] MEDS: LABETALOL HCL IV 5 MG/ML 20ML IV PRN (08:11)
[2017-05-16] MEDS ORDERED: LISINOPRIL 40 MG TAB PO SCH (09:00)
[2017-05-16] MEDS: INSULIN GLARGINE SOLOSTAR 100 UNITS/ML 3 ML PEN SC SCH (09:00)
[2017-05-16] MEDS ORDERED: PANTOprazole SOD 40 MG TAB PO SCH (09:00)
--- NOTE | 2017-05-16 09:03 | DIAGNOSTIC IMAGING REPORT ---
KUB CLINICAL HISTORY: Dominant distention COMPARISON STUDY: 02/11/2017 FINDINGS: There is no pathologic bowel dilatation. There is a presumed gastric stimulator. There are surgical clips within the right upper quadrant consistent with a prior cholecystectomy. IMPRESSION: No evidence of pathologic bowel dilatation. Electronically signed by: Bruce Salamanca M.D. 05/16/2017 9:02 AM Dictated Date/Time: 05/16/2017 9:01 AM
[2017-05-16] MEDS ORDERED: PHARMACY GLYCEMIC MGMT CONSULT SCH (09:10)
--- NOTE | 2017-05-16 09:10 | Progress Note ---
Medicine Progress Note Date & Time of Visit: May 16, 2017 at 09:02. Subjective patient seen resting in bed, not in distress states Emend relieved nausea only for a few hours yesterday reports 2 episodes of emesis overnight- clear/yellowish has epigastric discomfort- typical when nausea worsens reports "pain all over" denies other symptoms Objective Last 8 Hrs Date Time Temp Pulse Resp B/P (MAP) Pulse Ox O2 Delivery O2 Flow Rate FiO2 05/16/17 08:49 84 157/94 (115) 05/16/17 08:02 88 05/16/17 07:53 36.6 90 18 189/113 (138) 99 05/16/17 07:48 90 190/104 (132) 05/16/17 04:15 36.5 94 16 154/97 (116) 90 Room Air 05/16/17 04:00 Room Air Physical Exam: General- oriented x 3, not in distress, speaks in sentences with no effort Head- atraumatic Eyes- PERRL, EOMI, anicteric ENT- oropharynx clear Neck- supple, no JVD, no adenopathy, no thyromegaly Lungs- clear breath sounds bilaterally, no rales/wheezes Heart- regular rhythm; no murmur, normal rate Abdomen-(+) hypoactive bowel sounds, non distended, (+) moderate tenderness on the epigastric region Extremities- no pretibial edema, no calf tenderness Neuro- alert, oriented x 3; no gross focal deficits Skin- warm & dry Laboratory Results: Last 24 Hours Test 05/15/17 15:35 05/15/17 15:43 05/15/17 16:01 05/15/17 20:41 Influenza Type A Antigen Neg for Influ A Influenza Type B Antigen Neg for Influ B White Blood Count 6.74 K/uL Red Blood Count 3.54 M/uL Hemoglobin 10.6 g/dL Hematocrit 29.1 % Mean Corpuscular Volume 82.2 fL Mean Corpuscular Hemoglobin 29.9 pg Mean Corpuscular Hemoglobin Concent 36.4 g/dl Platelet Count 199 K/uL Mean Platelet Volume 9.0 fL Neutrophils (%) (Auto) 72.7 % Lymphocytes (%) (Auto) 16.8 % Monocytes (%) (Auto) 8.3 % Eosinophils (%) (Auto) 1.8 % Basophils (%) (Auto) 0.1 % Neutrophils # (Auto) 4.90 K/uL Lymphocytes # (Auto) 1.13 K/uL Monocytes # (Auto) 0.56 K/uL Eosinophils # (Auto) 0.12 K/uL Basophils # (Auto) 0.01 K/uL RDW Standard Deviation 41.3 fL RDW Coefficient of Variation 13.7 % Immature Granulocyte % (Auto) 0.3 % Immature Granulocyte # (Auto) 0.02 K/uL Sodium Level 131 mmol/L Potassium Level 3.4 mmol/L Chloride Level 94 mmol/L Carbon Dioxide Level 29 mmol/L Anion Gap 8.0 mmol/L Blood Urea Nitrogen 17 mg/dl Creatinine 1.46 mg/dl Est Creatinine Clear Calc Drug Dose 57.9 ml/min Estimated GFR () 63.6 Estimated GFR (Non- 54.9 BUN/Creatinine Ratio 11.7 Random Glucose 226 mg/dl Calcium Level 9.0 mg/dl Phosphorus Level 3.5 mg/dl Magnesium Level 1.3 mg/dl Total Bilirubin 0.6 mg/dl Direct Bilirubin 0.1 mg/dl Aspartate Amino Transf (AST/SGOT) 11 U/L Alanine Aminotransferase (ALT/SGPT) 18 U/L Alkaline Phosphatase 88 U/L Total Protein 7.7 gm/dl Albumin 3.4 gm/dl Lipase 31 U/L Lactic Acid Level 1.4 mmol/L Bedside Glucose 207 mg/dl Test 05/16/17 05:47 White Blood Count 3.40 K/uL Red Blood Count 3.13 M/uL Hemoglobin 9.2 g/dL Hematocrit 25.8 % Mean Corpuscular Volume 82.4 fL Mean Corpuscular Hemoglobin 29.4 pg Mean Corpuscular Hemoglobin Concent 35.7 g/dl RDW Standard Deviation 41.8 fL RDW Coefficient of Variation 13.9 % Platelet Count 153 K/uL Mean Platelet Volume 8.7 fL Sodium Level 135 mmol/L Potassium Level 3.7 mmol/L Chloride Level 97 mmol/L Carbon Dioxide Level 29 mmol/L Anion Gap 9.0 mmol/L Blood Urea Nitrogen 16 mg/dl Creatinine 1.16 mg/dl Est Creatinine Clear Calc Drug Dose 67.9 ml/min Estimated GFR () 84.0 Estimated GFR (Non- 72.5 BUN/Creatinine Ratio 13.6 Random Glucose 230 mg/dl Calcium Level 8.4 mg/dl Magnesium Level 1.6 mg/dl Assessment & Plan INTRACTABLE NAUSEA AND VOMITING, GASTROPARESIS Pt with hx gastroparesis, N/V/D, has gastric stimulator. Not controlled on Zofran, compazine, Phenergan. Reglan caused hallucinations. Negative stool cultures and Cdiff in past admission. Pt given Zofran, pepcid 20mg IV, Emend IV in ER, oxycodone 10mg po, fentanyl IV -- nausea about the same as yesterday -- check KUB -- continue clear liquid diet, NSS GI consulted -- scheduled for gastric stimulator adjustment on 07/03/17 with a center in [place], [place] HYPOKALEMIA K: 3.4 - resolved HYPOMAGNESIA Ma.3. Secondary to GI losses - replace HYPONATREMIA Na: 131, corrected 133 with gluc of 226 today. Probable secondary to vomiting -- improved to 135 HTN BP in ER 168/98 - 170/113. -labetalol 10mg IV Q6H -hold HCTZ and Lisinopril with dehydration -hold po metoprolol with N/V, until improves -continue to monitor, may need to adjust DM II Glucose: 226. HA1C: 7.9 on 04/26/17 -novolog sliding scale per protocol Lantus decreased to 50% - patient only on clear liquids - Pharmacy consulted IVAN Cr: 1.4, was 1.3 on 05/08/17. pt with volume depletion -- crea improved to 1.16 DIABETIC NEUROPATHY Follows with Dr Hope pain management. On fentanyl patch and oxycodone. New patch placed this am. Hx past intrathecal pump removed secondary to infection -continue fentanyl patch, changed Q48H oxycodone gabapentin SEIZURE DISORDER No recent seizure -continue levetiracetam HX LUNG CA Adenocarcinoma of lung, s/p resection and chemo -followed with Dr Keith today DVT PROPHYLAXIS -heparin SQ DISPOSITION -admit tele -Full Code as per discussion with pt -Follows with Dr Burgess for routine care Current Inpatient Medications: Current Inpatient Medications Medications (Trade) Dose Ordered Sig/Cal Route Start Time Stop Time Status Last Admin Dose Admin Acetaminophen (Tylenol Tab) 650 mg Q4H PRN PO 05/15/17 18:00 06/14/17 17:59 Magnesium Hydroxide (Milk Of Magnesia Susp) 30 ml Q12H PRN PO 05/15/17 18:00 06/14/17 17:59 Ondansetron HCl (Zofran Inj) 4 mg Q6H PRN IV 05/15/17 18:00 06/14/17 17:59 05/16/17 08:05 4 MG Nitroglycerin (Nitrostat Tab) 0.4 mg UD PRN SL 05/15/17 18:00 06/14/17 17:59 Insulin Glargine (Lantus Solostar Pen) 7 units Q12 SC 05/15/17 21:00 06/14/17 20:59 05/15/17 20:56 7 UNITS Insulin Aspart (novoLOG ASPART) SLIDING SCALE If C... ACHS SC 05/15/17 21:00 06/14/17 20:59 05/15/17 20:56 2 UNITS Glucose (Glucose 40% Gel) 15-30 GRAMS 15 GRAMS... UD PRN PO 05/15/17 18:30 06/14/17 18:29 Glucose (Glucose Chew Tab) 4-8 Tablets 4 Tabl... UD PRN PO 05/15/17 18:30 06/14/17 18:29 Dextrose (Dextrose 50% 50ML Syringe) 25-50ML OF 50% DW IV FOR... UD PRN IV 05/15/17 18:30 06/14/17 18:29 Glucagon (Glucagon Inj) 1 mg UD PRN SQ 05/15/17 18:30 06/14/17 18:29 Albuterol (Ventolin Hfa Inhaler) 2 puffs Q6H PRN INH 05/15/17 18:45 06/14/17 18:44 Amlodipine Besylate (Norvasc Tab) 5 mg DAILY PO 05/16/17 09:00 06/15/17 08:59 Duloxetine HCl (Cymbalta Cap) 30 mg QAM PO 05/16/17 09:00 06/15/17 08:59 Fentanyl (Duragesic Patch) 100 mcg Q2D@0700 TD 05/17/17 07:00 05/31/17 06:59 Levetiracetam (Keppra Tab) 1,000 mg BID PO 05/15/17 21:00 06/14/17 20:59 05/15/17 20:49 1,000 MG Mirtazapine (Remeron Tab) 15 mg HS PO 05/15/17 21:00 06/14/17 20:59 05/15/17 20:50 15 MG Ferrous Sulfate (Feosol Tab) 325 mg BID PO 05/16/17 09:00 06/15/17 08:59 Heparin Sodium (Porcine) (Heparin Sq 5000 Unit/0.5ml) 5,000 unit Q12 SQ 05/15/17 21:00 06/14/17 20:59 05/15/17 20:57 5,000 UNIT Labetalol HCl (Normodyne IV) 10 mg Q6 PRN IV 05/15/17 19:30 06/14/17 19:29 05/16/17 08:11 10 MG Potassium Chloride/Sodium Chloride 1,000 ml @ 100 mls/hr Q10H IV 05/15/17 20:30 06/14/17 20:14 05/16/17 08:05 100 MLS/HR Pantoprazole Sodium 40 mg/ Syringe 10 ml @ 5 mls/min DAILY@11 IV 05/16/17 11:00 06/15/17 10:59 Oxycodone HCl (Roxicodone Immediate Rel Tab) 10 mg Q4H PRN PO 05/15/17 20:30 06/14/17 18:44 05/16/17 03:02 10 MG Miscellaneous (Fentanyl Patch Remove & Waste) 1 ea Q2D@0659 N/A 05/17/17 06:59 06/16/17 06:58 Miscellaneous Information (Check Fentanyl Patch Placement) 1 ea QS N/A 05/16/17 00:00 06/15/17 00:00 05/16/17 08:05 1 EA Magnesium Sulfate 2 gm/Prmx 100 ml @ 100 mls/hr ONE IV 05/16/17 08:15 06/15/17 08:14 UNV
[2017-05-16] MEDS ORDERED: GABAPENTIN 300 MG CAP PO ONE (09:20)
[2017-05-16] MEDS: MAGNESIUM SULFATE 1GM / D5W 1 GM in PREMIXED IN D5W 100 ML IV SCH ×2 (09:29→10:46)
[2017-05-16] MEDS: LEVETIRACETAM 500 MG TAB PO SCH ×2 (09:34→20:35)
[2017-05-16] MEDS: AMLODIPINE BESYLATE 5 MG TAB PO SCH (09:35)
[2017-05-16] MEDS: FERROUS SULFATE 325 MG TAB PO SCH ×2 (09:35→20:35)
[2017-05-16] MEDS: DULOXETINE (CYMBALTA) 30 MG CAP PO SCH (09:36)
[2017-05-16] MEDS: HEPARIN SOD 5000 UNIT/0.5 ML CARP SQ SCH ×2 (09:41→20:39)
[2017-05-16] MEDS: INSULIN ASPART 100 UNITS/ML 3 ML PEN SC SCH ×4 (09:42→20:38)
[2017-05-16] MEDS: PANTOprazole INJ 40 MG in SYRINGE 0 ML IV SCH (10:46)
--- NOTE | 2017-05-16 10:46 | Pharmacy Progress Note ---
Glycemic Control Intl Consult Date of Service May 16, 2017. Scope Glycemic Pharmacist consulted by Dr Car on 05/16/17 for glycemic control and to write orders per [facility] inpatient glycemic control protocol Objective Weight (Kilograms): 73.200 Accuchecks BSG (last 24hrs): Test 05/15/17 15:43 05/15/17 20:41 05/16/17 05:47 Random Glucose 226 mg/dl (70-99) 230 mg/dl (70-99) Bedside Glucose 207 mg/dl (70-99) Laboratory Data (last 24hrs) Test 05/15/17 15:43 05/16/17 05:47 Anion Gap 8.0 mmol/L 9.0 mmol/L BUN/Creatinine Ratio 11.7 13.6 Blood Urea Nitrogen 17 mg/dl 16 mg/dl Creatinine 1.46 mg/dl 1.16 mg/dl Potassium Level 3.4 mmol/L 3.7 mmol/L Sodium Level 131 mmol/L 135 mmol/L White Blood Count 6.74 K/uL 3.40 K/uL Red Blood Count 3.54 M/uL Hemoglobin 10.6 g/dL Hematocrit 29.1 % Mean Corpuscular Volume 82.2 fL Mean Corpuscular Hemoglobin 29.9 pg Mean Corpuscular Hemoglobin Concent 36.4 g/dl Platelet Count 199 K/uL Mean Platelet Volume 9.0 fL Neutrophils (%) (Auto) 72.7 % Lymphocytes (%) (Auto) 16.8 % Monocytes (%) (Auto) 8.3 % Eosinophils (%) (Auto) 1.8 % Basophils (%) (Auto) 0.1 % Neutrophils # (Auto) 4.90 K/uL Lymphocytes # (Auto) 1.13 K/uL Monocytes # (Auto) 0.56 K/uL Eosinophils # (Auto) 0.12 K/uL Basophils # (Auto) 0.01 K/uL Recent Pertinent Medications Outpatient Anti-diabetic Regimen: * Lantus 15 units QPM * Humalog ss * A1c = 7.9 % 04/26/17 Assessment & Plan ASSESSMENT: * Mr Hamilton is a 51yo diabetic male, admitted with intractable vomiting/severe nausea. Mr Hamilton is known to the pharmacy glycemic management service from past admissions. * PMH is significant for severe gastroparesis, severe diabetic neuropathy, CKD stage 3, and recent significant wt loss. * During prior admission - he had lows related to receiving Novolog and then throwing up an entire meal * He did receive full basal dosing with minimal PO intake and never had any fasting lows * Based on this information - continue same regimen as last admission and make adjustments as necessary * Note: he does have a tendency to snack through the night - but covering him for that snacking has potential to cause fasting low - would advise not covering that snack unless fastings are consistently >250 PLAN FOR INPATIENT GLYCEMIC CONTROL: * Basal insulin with LANTUS 18 units SQ HS - first dose with dinner tonight * Correctional Insulin with NOVOLOG per scale ACHS or Q6hrs while NPO * Goal Range: Low 120 mg/dL - High 160 mg/dL * Correction Factor: 35 mg/dL/unit * Nutritional / Prandial insulin per carb ratio of 1 unit per 11 grams CHO consumed * Please note that the plan above was derived based on current level of insulin resistance and hospital stress. These recommendations are appropriate for inpatient admission only. Plan of care upon discharge will need to be reassessed to avoid potential outpatient hypo/hyperglycemia. Thank you.
[2017-05-16] MEDS: GABAPENTIN 300 MG CAP PO SCH ×2 (13:01→20:35)
--- NOTE | 2017-05-16 14:21 | Gastrointestinal Consultation ---
Gastrointestinal Consultation Date of Consultation: May 16, 2017 Attending Physician: Fran Consulting Physician: Dr. Valentin Reason for Consultation: N/V gastroparesis History of Present Illness Patient is a 51 year old male patient of Dr. Burgess with a hx of DM2, diabetic neuropathy, on chronic narcotics, Gastroparesis S/P gastric stimulator from [facility], intrathecal pump infection s/p removal, lung ca s/p SHAWN resection, chemo (none since 08/2016), pneumonia who presented to ED yesterday for Nausea, vomiting. GI consulted for nausea/vomiting , gastroparesis. He was recently discharged from [facility] during which time GI was consulted for gastroparesis and advised to decrease narcotic use and f/u with GI motility provider. CT at that time (05/12/17) with moderate to marked distal esophageal wall thickening favoring esophagitis and mild wall thickening of the descending colon and equivocal rectal wall thickening. Of note, a CT in January also suggested the esophageal wall thickening and pt underwent EGD at [place] in March,. Regarding his gastric pacer, when he underwent lung cancer surgery approx one year ago, the pacer was turned off for the surgery and when turned back on, it was set to factory settings. He hasn't been able to be seen by a motility clinic as of yet to personalize the settings. He previously followed with [facility] but because that physician has since left that office, he now has an appt at [facility] in the end of June. Past Medical/Surgical History Medical Problems: (1) Acute kidney injury Status: Acute (2) Altered mental status Status: Acute (3) Anemia Status: Acute (4) Chronic pain Status: Acute (5) Dehydration Status: Acute (6) Dehydration Status: Acute (7) Dehydration Status: Acute (8) Dehydration Status: Acute (9) Dehydration Status: Acute (10) Diabetes mellitus with hyperglycemia Status: Acute (11) Failure of outpatient treatment Status: Acute (12) Gastroparesis Permanent Comment: s/p gastric stimulator Status: Chronic (13) Hyperglycemia Status: Acute (14) Hypomagnesemia Status: Acute (15) Hypomagnesemia Status: Acute (16) Hyponatremia Status: Acute (17) Intractable vomiting Status: Acute (18) Intractable vomiting Status: Acute (19) Intrathecal pump infection Status: Acute (20) Orthostatic hypotension Status: Acute (21) Pneumonia Status: Acute (22) Post-operative complication Status: Acute (23) R10.13 Status: Acute (24) R11.2 Status: Acute (25) Sepsis Status: Acute (26) Vomiting Status: Acute (27) Vomiting Status: Acute Past Medical History: 1. RUTH 2. Chronic anemia 3. Chronic pain 4. DM 5. Diabetic gastroparesis 6. Hyperglycemia 7. Pneumonia 8. Sepsis Past Surgical History: 1. Pain pump insertion then removal. 2. Colonoscopy 04/22/2013- Mildly congested and erythematous mucosa in the ascending colon. One 1 mm polyp in the ascending colon resected. One benign appearing 1 mm polyp in the rectum resected. Internal hemorrhoids; Dr. Demarco 3. EGD 01/26/2015- [place] Grade B reflux esophagitis, gastritis; Dr. Major 4. Cholecystectomy 5. Tonsillectomy and adenoidectomy 6. Total knee arthroplasty 7. Lung lobectomy of lung Family History Diabetes mellitus FATHER MOTHER GRANDFATHER Renal cancer SISTER Social History Smoking Status: Current Every Day Smoker (quit 2000, smoked 0.5ppd x 2 years) Alcohol Use: none Drug Use: none Marital Status: Housing Status: lives with family Occupation Status: disabled Allergies Coded Allergies: BEE STING (Verified Allergy, Mild, SWELLING AT SITE, SOB, 05/12/17) Penicillins (Unverified Allergy, Unknown, "SINCE "-Amoxicillin, ) Metoclopramide (Verified Adverse Reaction, Unknown, hallucinations, 05/12/17 ) Current Medications Home Meds and Scripts Medications Dose Route/Sig Max Daily Dose Days Date Category Dose Instructions Lantus Solostar (Insulin Glargine) 100 Unit/Ml Inj 15 Units SQ QPM 05/12/17 Reported Diphenoxylate/Atropine 2.5-0.025 mg (Diphenoxylate HCl/Atropine) 1 Tab Tab 1 Tab PO BID PRN 7 05/08/17 Rx Keppra (Levetiracetam) 500 Mg Tab 1,000 Mg PO BID 30 05/08/17 Rx Duloxetine HCl 30 Mg Cap 30 Mg PO QAM 30 05/08/17 Rx Tylenol (Acetaminophen) 500 Mg Tab 1,000 Mg PO Q6H PRN 04/25/17 Reported Docusate Sodium 100 Mg Cap 200 Mg PO DAILY PRN 04/25/17 Reported Fentanyl 100 Mcg Tdsy 100 Mcg TOP Q2D 04/25/17 Reported Gabapentin 300 Mg Cap 300 Mg PO TID 04/25/17 Reported Hydrochlorothiazide 12.5 Mg Tab 12.5 Mg PO DAILY 04/25/17 Reported Prilosec (Omeprazole) 20 Mg Cap 20 Mg PO DAILY 04/25/17 Reported Oxycodone Hcl 10 Mg Tab 1 Tab PO Q4H PRN 04/25/17 Reported Compazine (Prochlorperazine Maleate) 10 Mg Tab 10 Mg PO Q6H PRN 04/25/17 Reported Norvasc (Amlodipine Besylate) 5 Mg Tab 5 Mg PO DAILY 04/25/17 Reported Humalog (Insulin Lispro (Human)) 100 Unit/Ml Inj 0 SQ UD 04/25/17 Reported SLIDING SCALE Lopressor (Metoprolol Tartrate) 25 Mg Tab 75 Mg PO BID 04/25/17 Reported Mirtazapine 15 Mg Tab 15 Mg PO HS 04/25/17 Reported Lisinopril 40 Mg Tab 40 Mg PO DAILY 04/25/17 Reported Kp Ferrous Sulfate (Ferrous Sulfate) 325 Mg Tab 325 Mg PO BID 03/19/17 Reported Ventolin Hfa (Albuterol) 200 Puffs/61984 Mcg Aers 2 Puffs INH Q6H PRN 02/01/17 Reported Ondansetron HCl (Ondansetron) 4 Mg Tab 8 Mg PO Q8 PRN 08/15/16 Reported Epipen (Epinephrine) 0.3 Mg/0.3 Ml Inj 0.3 Mg IM UD PRN 04/16/13 Reported Multivitamins (Multiple Vitamin) 1 Cap Cap 1 Cap PO QAM 04/16/13 Reported Review of Systems Constitutional: No fever, No chills, No sweats, No weight loss, No weakness Eyes: No eye pain, No redness ENT: No sore throat, No trouble swallowing, No pain on swallowing Respiratory: No cough, No wheezing, No shortness of breath, No dyspnea on exertion Cardiac: No chest pain, No edema, No palpitations Abdomen: + see HPI, + nausea, + vomiting Neuro: No memory loss, No weakness, No numbness/tingling, No vertigo, No balance problems Psych: No depression symptoms, No anxiety, No insomnia Heme: No abnormal bleeding/bruising, No night sweats Endo: No excessive thirst, No excessive urination Skin: No rash, No itch, No new/changing skin lesions, No jaundice Physical Exam Date Time Temp Pulse Resp B/P (MAP) Pulse Ox O2 Delivery O2 Flow Rate FiO2 05/16/17 08:49 84 157/94 (115) 05/16/17 08:02 88 05/16/17 07:53 36.6 90 18 189/113 (138) 99 05/16/17 07:48 90 190/104 (132) 05/16/17 04:15 36.5 94 16 154/97 (116) 90 Room Air 05/16/17 04:00 Room Air 05/16/17 00:30 88 159/91 (113) 05/16/17 00:00 Room Air 05/15/17 23:57 89 168/88 (114) 05/15/17 23:27 94 180/100 (126) 05/15/17 23:20 36.9 95 16 191/115 (140) 100 Room Air 05/15/17 19:45 36.8 102 18 129/87 99 Room Air 05/15/17 17:55 100 20 158/99 100 Room Air 05/15/17 16:13 95 05/15/17 16:05 96 168/98 05/15/17 15:48 103 18 174/115 99 Room Air 05/15/17 15:15 37.0 110 20 115/80 100 Room Air General Appearance: no apparent distress Eyes: normal inspection, EOMI Neck: supple, no adenopathy, thyroid normal Respiratory/Chest: chest non-tender, lungs clear, normal breath sounds, no accessory muscle use Cardiovascular: regular rate, rhythm, no JVD, no murmur Abdomen: normal bowel sounds, non tender, soft, no organomegaly Extremities: normal inspection, no pedal edema, normal capillary refill Neurologic/Psych: alert, normal mood/affect, oriented x 3 Skin: normal color, no jaundice, warm/dry, no rash Laboratory Results Last 24 Hours Test 05/15/17 15:35 05/15/17 15:43 05/15/17 16:01 05/15/17 20:41 Influenza Type A Antigen Neg for Influ A Influenza Type B Antigen Neg for Influ B White Blood Count 6.74 K/uL Red Blood Count 3.54 M/uL Hemoglobin 10.6 g/dL Hematocrit 29.1 % Mean Corpuscular Volume 82.2 fL Mean Corpuscular Hemoglobin 29.9 pg Mean Corpuscular Hemoglobin Concent 36.4 g/dl Platelet Count 199 K/uL Mean Platelet Volume 9.0 fL Neutrophils (%) (Auto) 72.7 % Lymphocytes (%) (Auto) 16.8 % Monocytes (%) (Auto) 8.3 % Eosinophils (%) (Auto) 1.8 % Basophils (%) (Auto) 0.1 % Neutrophils # (Auto) 4.90 K/uL Lymphocytes # (Auto) 1.13 K/uL Monocytes # (Auto) 0.56 K/uL Eosinophils # (Auto) 0.12 K/uL Basophils # (Auto) 0.01 K/uL RDW Standard Deviation 41.3 fL RDW Coefficient of Variation 13.7 % Immature Granulocyte % (Auto) 0.3 % Immature Granulocyte # (Auto) 0.02 K/uL Sodium Level 131 mmol/L Potassium Level 3.4 mmol/L Chloride Level 94 mmol/L Carbon Dioxide Level 29 mmol/L Anion Gap 8.0 mmol/L Blood Urea Nitrogen 17 mg/dl Creatinine 1.46 mg/dl Est Creatinine Clear Calc Drug Dose 57.9 ml/min Estimated GFR () 63.6 Estimated GFR (Non- 54.9 BUN/Creatinine Ratio 11.7 Random Glucose 226 mg/dl Calcium Level 9.0 mg/dl Phosphorus Level 3.5 mg/dl Magnesium Level 1.3 mg/dl Total Bilirubin 0.6 mg/dl Direct Bilirubin 0.1 mg/dl Aspartate Amino Transf (AST/SGOT) 11 U/L Alanine Aminotransferase (ALT/SGPT) 18 U/L Alkaline Phosphatase 88 U/L Total Protein 7.7 gm/dl Albumin 3.4 gm/dl Lipase 31 U/L Lactic Acid Level 1.4 mmol/L Bedside Glucose 207 mg/dl Test 05/16/17 05:47 White Blood Count 3.40 K/uL Red Blood Count 3.13 M/uL Hemoglobin 9.2 g/dL Hematocrit 25.8 % Mean Corpuscular Volume 82.4 fL Mean Corpuscular Hemoglobin 29.4 pg Mean Corpuscular Hemoglobin Concent 35.7 g/dl RDW Standard Deviation 41.8 fL RDW Coefficient of Variation 13.9 % Platelet Count 153 K/uL Mean Platelet Volume 8.7 fL Sodium Level 135 mmol/L Potassium Level 3.7 mmol/L Chloride Level 97 mmol/L Carbon Dioxide Level 29 mmol/L Anion Gap 9.0 mmol/L Blood Urea Nitrogen 16 mg/dl Creatinine 1.16 mg/dl Est Creatinine Clear Calc Drug Dose 67.9 ml/min Estimated GFR () 84.0 Estimated GFR (Non- 72.5 BUN/Creatinine Ratio 13.6 Random Glucose 230 mg/dl Calcium Level 8.4 mg/dl Magnesium Level 1.6 mg/dl CT abd/pelvis with IV, no oral contrast on 05/12/17: 1. Interval development of moderate to marked distal esophageal wall thickening which favors esophagitis. 2. Mild wall thickening of the descending colon with minimal pericolonic infiltration and possible mild rectal wall thickening. The findings suggest a nonspecific proctocolitis. 3. Moderate distention of the bladder. 4. Stable appendiceal dilatation. No evidence for acute appendicitis however the appendix remains abnormal. Impression Patient is a 51 year old male with narcotic induced gastroparesis. Plan 1. Decrease narcotic use. 2. Agree with Emend. 3. Trial of Relistor - with indication for narcotic induced constipation but we have found that it also improves narcotic induced nausea. 4. Gastroparesis diet. ATTESTATION: I have performed a history and physical examination of this patient and reviewed the electronic record. Specifically, on physical examination there is no abdominal tenderness. I have discussed the case with LINDSAY Wen. The above note reflects my findings, conclusions, and recommendations. Surya Valentin MD
[2017-05-16] MEDS: METHYLNALTREXONE BROMIDE INJ 12 MG/0.6 ML SYR SQ SCH (16:45)
[2017-05-16] MEDS: MIRTAZAPINE TAB 15 MG TAB PO SCH (20:36)
[2017-05-16] MEDS: ALBUTEROL HFA 8 GM INHALER INH PRN (20:40)
[2017-05-17] VITALS (8 sets, daily range): BP systolic 136–191; BP diastolic 76–101; PULSE 81–92; TEMP 36.3–36.9; O2SAT 98–100; BMI 26.8
[2017-05-17] MEDS: CHECK FENTANYL PATCH PLACEMENT SCH ×4 (00:01→22:55)
[2017-05-17] MEDS: ALBUTEROL HFA 8 GM INHALER INH PRN (03:59)
[2017-05-17] MEDS: OXYCODONE HCL IR 5 MG TAB (IMMEDIATE RELEASE) PO PRN ×3 (03:59→14:37)
[2017-05-17] MEDS: NSS + 20MEQ KCL 1000ML 1,000 ML IV SCH ×2 (06:10→13:41)
[2017-05-17] MEDS: FENTANYL PATCH REMOVE & WASTE SCH (07:06)
[2017-05-17] MEDS: FENTANYL 100 MCG/HR TDSY TD SCH (07:07)
[2017-05-17] MEDS: GABAPENTIN 300 MG CAP PO SCH ×3 (07:37→21:11)
[2017-05-17] MEDS: LEVETIRACETAM 500 MG TAB PO SCH ×2 (07:37→21:10)
[2017-05-17] MEDS: AMLODIPINE BESYLATE 5 MG TAB PO SCH (07:37)
[2017-05-17] MEDS: FERROUS SULFATE 325 MG TAB PO SCH ×2 (07:38→21:10)
[2017-05-17] MEDS: DULOXETINE (CYMBALTA) 30 MG CAP PO SCH (07:38)
[2017-05-17] MEDS: ONDANSETRON INJ 2 MG/ML 2 ML VIAL IV PRN ×2 (07:38→15:22)
[2017-05-17] MEDS: INSULIN ASPART 100 UNITS/ML 3 ML PEN SC SCH ×3 (08:31→18:00)
[2017-05-17] MEDS: HEPARIN SOD 5000 UNIT/0.5 ML CARP SQ SCH ×2 (08:32→21:15)
[2017-05-17] MEDS: INSULIN GLARGINE SOLOSTAR 100 UNITS/ML 3 ML PEN SC SCH (09:30)
[2017-05-17] MEDS: PANTOprazole INJ 40 MG in SYRINGE 0 ML IV SCH (10:46)
--- NOTE | 2017-05-17 11:34 | Pharmacy Progress Note ---
Pharmacy Glycemic Short Note 2 Date of Service May 17, 2017. OUTPATIENT ANTIDIABETIC REGIMEN: * Lantus 15 units QPM * Humalog ss * A1c = 7.9 % 04/26/17 ASSESSMENT: * Mr Hamilton is a 51yo diabetic male, admitted with intractable vomiting/severe nausea. Mr Hamilton is known to the pharmacy glycemic management service from past admissions. * Per previous admissions patient typically requires ~30 units of insulin per day * Based on this information - continue same regimen as last admission and make adjustments as necessary * Basal insulin with Lantus 18 units was supposed to start last night but unfortunately was not - will start this AM HANS * Note: he does have a tendency to snack through the night - but covering him for that snacking has potential to cause fasting low - would advise not covering that snack unless fastingS are consistently >250 PLAN FOR INPATIENT GLYCEMIC CONTROL: * Hold outpatient oral diabetes medications * Basal insulin * Lantus 15 units SQ daily * Bolus insulin * NovoLog per scale ACHS or Q6hrs while NPO * Goal Range: Low 120 mg/dL - High 160 mg/dL * Correction Factor: 30 mg/dL/unit * Nutritional / Prandial insulin per carb ratio of 1 unit per 10 grams CHO consumed
[2017-05-17] MEDS ORDERED: LISINOPRIL 40 MG TAB PO ONE (12:00)
[2017-05-17] MEDS ORDERED: METOPROLOL TARTRATE 25 MG TAB PO ONE (12:00)
--- NOTE | 2017-05-17 12:32 | Progress Note ---
Medicine Progress Note Date & Time of Visit: May 17, 2017 at 12:32. Subjective patient seen resting in bed, not in distress states he had 4 episode of vomiting this morning has occasional epigastric pain denies other symptoms Objective Last 8 Hrs Date Time Temp Pulse Resp B/P (MAP) Pulse Ox O2 Delivery O2 Flow Rate FiO2 05/17/17 12:00 Room Air 05/17/17 11:49 92 136/84 (101) 05/17/17 11:35 36.5 88 18 191/101 (131) 99 05/17/17 08:00 Room Air 05/17/17 07:33 36.9 89 18 166/96 (119) 99 Physical Exam: General- oriented x 3, not in distress, speaks in sentences with no effort Eyes- anicteric Neck- supple, no JVD Lungs- clear BS bilaterally, no rales/wheezes Heart- regular rhythm; no murmur, normal rate Abdomen-(+) hypoactive bowel sounds, non distended, (+) mild tenderness on the epigastric region Extremities- no pretibial edema, no calf tenderness Neuro- alert, oriented x 3; no gross focal deficits Skin- warm & dry Laboratory Results: Last 24 Hours Test 05/16/17 16:31 05/16/17 20:10 05/17/17 07:32 05/17/17 11:28 Bedside Glucose 309 mg/dl 235 mg/dl 280 mg/dl 214 mg/dl Assessment & Plan INTRACTABLE NAUSEA AND VOMITING, GASTROPARESIS Pt with hx gastroparesis, N/V/D, has gastric stimulator. Not controlled on Zofran, compazine, Phenergan. Reglan caused hallucinations. Negative stool cultures and Cdiff in past admission. Pt given Zofran, pepcid 20mg IV, Emend IV in ER, oxycodone 10mg po, fentanyl IV -- GI consulted recommend Erythromycin q6h and NPO until nausea improves -- continue anti emetics -- scheduled for gastric stimulator adjustment on 07/03/17 with a center in [place] HYPOKALEMIA K: 3.4 - resolved HYPOMAGNESIA Ma.3. Secondary to GI losses - replaced HYPONATREMIA Na: 131, corrected 133 with gluc of 226 today. Probable secondary to vomiting -- improved to 135 HTN BP in ER 168/98 - 170/113. -labetalol 10mg IV Q6H Lisinopril -hold po metoprolol with N/V, until improves -continue to monitor, may need to adjust DM II Glucose: 226. HA1C: 7.9 on 04/26/17 -novolog sliding scale per protocol, Lantus - Pharmacy consulted IVAN Cr: 1.4, was 1.3 on 05/08/17. pt with volume depletion -- crea improved to 1.16 DIABETIC NEUROPATHY Follows with Dr Hope pain management. On fentanyl patch and oxycodone. New patch placed this am. Hx past intrathecal pump removed secondary to infection -continue fentanyl patch, changed Q48H oxycodone gabapentin SEIZURE DISORDER No recent seizure -continue levetiracetam HX LUNG CA Adenocarcinoma of lung, s/p resection and chemo -followed with Dr Keith today DVT PROPHYLAXIS -heparin SQ DISPOSITION -admit tele -Full Code as per discussion with pt -Follows with Dr Burgess for routine care Current Inpatient Medications: Current Inpatient Medications Medications (Trade) Dose Ordered Sig/Cal Route Start Time Stop Time Status Last Admin Dose Admin Acetaminophen (Tylenol Tab) 650 mg Q4H PRN PO 05/15/17 18:00 06/14/17 17:59 Magnesium Hydroxide (Milk Of Magnesia Susp) 30 ml Q12H PRN PO 05/15/17 18:00 06/14/17 17:59 Ondansetron HCl (Zofran Inj) 4 mg Q6H PRN IV 05/15/17 18:00 06/14/17 17:59 05/17/17 07:38 4 MG Nitroglycerin (Nitrostat Tab) 0.4 mg UD PRN SL 05/15/17 18:00 06/14/17 17:59 Insulin Aspart (novoLOG ASPART) SLIDING SCALE If C... ACHS SC 05/15/17 21:00 06/14/17 20:59 05/17/17 08:31 4 UNITS Glucose (Glucose 40% Gel) 15-30 GRAMS 15 GRAMS... UD PRN PO 05/15/17 18:30 06/14/17 18:29 Glucose (Glucose Chew Tab) 4-8 Tablets 4 Tabl... UD PRN PO 05/15/17 18:30 06/14/17 18:29 Dextrose (Dextrose 50% 50ML Syringe) 25-50ML OF 50% DW IV FOR... UD PRN IV 05/15/17 18:30 06/14/17 18:29 Glucagon (Glucagon Inj) 1 mg UD PRN SQ 05/15/17 18:30 06/14/17 18:29 Albuterol (Ventolin Hfa Inhaler) 2 puffs Q6H PRN INH 05/15/17 18:45 06/14/17 18:44 05/17/17 03:59 2 PUFFS Amlodipine Besylate (Norvasc Tab) 5 mg DAILY PO 05/16/17 09:00 06/15/17 08:59 05/17/17 07:37 5 MG Duloxetine HCl (Cymbalta Cap) 30 mg QAM PO 05/16/17 09:00 06/15/17 08:59 05/17/17 07:38 30 MG Fentanyl (Duragesic Patch) 100 mcg Q2D@0700 TD 05/17/17 07:00 05/31/17 06:59 05/17/17 07:07 100 MCG Levetiracetam (Keppra Tab) 1,000 mg BID PO 05/15/17 21:00 06/14/17 20:59 05/17/17 07:37 1,000 MG Mirtazapine (Remeron Tab) 15 mg HS PO 05/15/17 21:00 06/14/17 20:59 05/16/17 20:36 15 MG Ferrous Sulfate (Feosol Tab) 325 mg BID PO 05/16/17 09:00 06/15/17 08:59 05/17/17 07:38 325 MG Heparin Sodium (Porcine) (Heparin Sq 5000 Unit/0.5ml) 5,000 unit Q12 SQ 05/15/17 21:00 06/14/17 20:59 05/17/17 08:32 5,000 UNIT Labetalol HCl (Normodyne IV) 10 mg Q6 PRN IV 05/15/17 19:30 06/14/17 19:29 05/16/17 08:11 10 MG Potassium Chloride/Sodium Chloride 1,000 ml @ 100 mls/hr Q10H IV 05/15/17 20:30 06/14/17 20:14 05/17/17 06:10 100 MLS/HR Pantoprazole Sodium 40 mg/ Syringe 10 ml @ 5 mls/min DAILY@11 IV 05/16/17 11:00 06/15/17 10:59 05/17/17 10:46 5 MLS/MIN Oxycodone HCl (Roxicodone Immediate Rel Tab) 10 mg Q4H PRN PO 05/15/17 20:30 06/14/17 18:44 05/17/17 10:45 10 MG Miscellaneous (Fentanyl Patch Remove & Waste) 1 ea Q2D@0659 N/A 05/17/17 06:59 06/16/17 06:58 05/17/17 07:06 1 EA Miscellaneous Information (Check Fentanyl Patch Placement) 1 ea QS N/A 05/16/17 00:00 06/15/17 00:00 05/17/17 07:38 1 EA Miscellaneous Information (Consult Glycemic Management Pharmacy) 1 ea UD N/A 05/16/17 09:10 06/15/17 09:09 Gabapentin (Neurontin Cap) 300 mg TID PO 05/16/17 14:00 06/15/17 13:59 05/16/17 20:35 300 MG Methylnaltrexone [place] (Relistor Inj) 12 mg Q2D@0900 SQ 05/16/17 16:00 06/15/17 15:59 05/16/17 16:45 12 MG Insulin Glargine (Lantus Solostar Pen) 15 units QAM SC 05/17/17 09:00 06/16/17 08:59 05/17/17 09:30 15 UNITS Lisinopril (Zestril Tab) 40 mg QAM PO 05/18/17 09:00 06/17/17 08:59 Metoprolol Tartrate (Lopressor Tab) 75 mg BID PO 05/17/17 21:00 06/16/17 20:59
--- NOTE | 2017-05-17 13:23 | Gastroenterology Progress Note ---
Progress Note Date of Service: May 17, 2017 Subjective Pt evaluation today including: conversation w/ patient, conversation w/ family , physical exam, chart review, lab review, review of studies, review of inpatient medication list Mr. Loredo is a 51 yr old male with narcotic and diabetes induced gastroparesis. Persistent vomiting continues despite zofran, phenergan, Emend, Relistor. Unable to use metoclopramide due to prior hallucinations for that med. Review of Systems Constitutional: No fever ENT: No hearing loss Respiratory: No cough Cardiac: No chest pain Abdomen: + pain, + nausea, + vomiting Male : No dysuria Neuro: No memory loss Psych: No depression symptoms Heme: No abnormal bleeding/bruising Endo: No fatigue Skin: No rash Medications Current Inpatient Medications Medications (Trade) Dose Ordered Sig/Cal Route Start Time Stop Time Status Last Admin Dose Admin Acetaminophen (Tylenol Tab) 650 mg Q4H PRN PO 05/15/17 18:00 06/14/17 17:59 Magnesium Hydroxide (Milk Of Magnesia Susp) 30 ml Q12H PRN PO 05/15/17 18:00 06/14/17 17:59 Ondansetron HCl (Zofran Inj) 4 mg Q6H PRN IV 05/15/17 18:00 06/14/17 17:59 05/17/17 07:38 4 MG Nitroglycerin (Nitrostat Tab) 0.4 mg UD PRN SL 05/15/17 18:00 06/14/17 17:59 Insulin Aspart (novoLOG ASPART) SLIDING SCALE If C... ACHS SC 05/15/17 21:00 06/14/17 20:59 05/17/17 08:31 4 UNITS Glucose (Glucose 40% Gel) 15-30 GRAMS 15 GRAMS... UD PRN PO 05/15/17 18:30 06/14/17 18:29 Glucose (Glucose Chew Tab) 4-8 Tablets 4 Tabl... UD PRN PO 05/15/17 18:30 06/14/17 18:29 Dextrose (Dextrose 50% 50ML Syringe) 25-50ML OF 50% DW IV FOR... UD PRN IV 05/15/17 18:30 06/14/17 18:29 Glucagon (Glucagon Inj) 1 mg UD PRN SQ 05/15/17 18:30 2/9/18 18:29 Albuterol (Ventolin Hfa Inhaler) 2 puffs Q6H PRN INH 05/15/17 18:45 06/14/17 18:44 05/17/17 03:59 2 PUFFS Amlodipine Besylate (Norvasc Tab) 5 mg DAILY PO 05/16/17 09:00 06/15/17 08:59 05/17/17 07:37 5 MG Duloxetine HCl (Cymbalta Cap) 30 mg QAM PO 05/16/17 09:00 06/15/17 08:59 05/17/17 07:38 30 MG Fentanyl (Duragesic Patch) 100 mcg Q2D@0700 TD 05/17/17 07:00 05/31/17 06:59 05/17/17 07:07 100 MCG Levetiracetam (Keppra Tab) 1,000 mg BID PO 05/15/17 21:00 06/14/17 20:59 05/17/17 07:37 1,000 MG Mirtazapine (Remeron Tab) 15 mg HS PO 05/15/17 21:00 06/14/17 20:59 05/16/17 20:36 15 MG Ferrous Sulfate (Feosol Tab) 325 mg BID PO 05/16/17 09:00 06/15/17 08:59 05/17/17 07:38 325 MG Heparin Sodium (Porcine) (Heparin Sq 5000 Unit/0.5ml) 5,000 unit Q12 SQ 05/15/17 21:00 06/14/17 20:59 05/17/17 08:32 5,000 UNIT Labetalol HCl (Normodyne IV) 10 mg Q6 PRN IV 05/15/17 19:30 06/14/17 19:29 05/16/17 08:11 10 MG Potassium Chloride/Sodium Chloride 1,000 ml @ 100 mls/hr Q10H IV 05/15/17 20:30 06/14/17 20:14 05/17/17 06:10 100 MLS/HR Pantoprazole Sodium 40 mg/ Syringe 10 ml @ 5 mls/min DAILY@11 IV 05/16/17 11:00 06/15/17 10:59 05/17/17 10:46 5 MLS/MIN Oxycodone HCl (Roxicodone Immediate Rel Tab) 10 mg Q4H PRN PO 05/15/17 20:30 06/14/17 18:44 05/17/17 10:45 10 MG Miscellaneous (Fentanyl Patch Remove & Waste) 1 ea Q2D@0659 N/A 05/17/17 06:59 06/16/17 06:58 05/17/17 07:06 1 EA Miscellaneous Information (Check Fentanyl Patch Placement) 1 ea QS N/A 05/16/17 00:00 06/15/17 00:00 05/17/17 07:38 1 EA Miscellaneous Information (Consult Glycemic Management Pharmacy) 1 ea UD N/A 05/16/17 09:10 06/15/17 09:09 Gabapentin (Neurontin Cap) 300 mg TID PO 05/16/17 14:00 06/15/17 13:59 05/16/17 20:35 300 MG Methylnaltrexone [place] (Relistor Inj) 12 mg Q2D@0900 SQ 05/16/17 16:00 06/15/17 15:59 05/16/17 16:45 12 MG Insulin Glargine (Lantus Solostar Pen) 15 units QAM SC 05/17/17 09:00 06/16/17 08:59 05/17/17 09:30 15 UNITS Lisinopril (Zestril Tab) 40 mg QAM PO 05/18/17 09:00 06/17/17 08:59 Metoprolol Tartrate (Lopressor Tab) 75 mg BID PO 05/17/17 21:00 06/16/17 20:59 Erythromycin Lactobionate 250 mg/Sodium Chloride 255 ml @ 250 mls/hr Q6H IV 05/17/17 13:15 05/27/17 13:14 UNV Objective Vital Signs Date Time Temp Pulse Resp B/P (MAP) Pulse Ox O2 Delivery O2 Flow Rate FiO2 05/17/17 12:00 Room Air 05/17/17 11:49 92 136/84 (101) 05/17/17 11:35 36.5 88 18 191/101 (131) 99 05/17/17 08:00 Room Air 05/17/17 07:33 36.9 89 18 166/96 (119) 99 05/17/17 04:11 36.3 90 16 152/76 (101) 100 Room Air 05/17/17 04:00 Room Air 05/17/17 00:00 Room Air 05/16/17 23:09 36.5 98 20 157/90 (112) 100 Room Air 05/16/17 20:00 98 Room Air 05/16/17 19:27 36.6 87 20 152/76 (101) 99 Room Air 05/16/17 16:00 98 Room Air 05/16/17 15:40 36.8 84 20 168/90 (116) 98 Room Air Physical Exam General Appearance: no apparent distress ENT: pharynx normal Neck: supple, thyroid normal, no JVD Respiratory/Chest: lungs clear Cardiovascular: regular rate, rhythm, no JVD, no murmur Abdomen: soft, + tenderness (moderate epigastric tenderness) Extremities: no pedal edema Neurologic/Psych: alert, normal mood/affect, oriented x 3 Laboratory Results Last 24 Hours Test 05/16/17 16:31 05/16/17 20:10 05/17/17 07:32 05/17/17 11:28 Bedside Glucose 309 mg/dl 235 mg/dl 280 mg/dl 214 mg/dl Assessment and Plan Mr. Hamilton is a 51 yr old male with diabetic and narcotic induced gastroparesis. Plan: 1. Will add e-mycin 250mg IV QID. 2. Continue Relistor, Emend, Zofran, Phenergan. 3. NPO until vomiting improves then restart liquids. 4. Would minimize narcotic use.
[2017-05-17] MEDS ORDERED: NURSING VERBAL MED ORDER ONE (13:45)
[2017-05-17] MEDS: ERYTHROMYCIN IV 250 MG in SODIUM CHLORIDE 0.9% 250ML 250 ML IV SCH ×2 (14:38→21:09)
[2017-05-17 17:30] LABS: HEMATOCRIT 25.5 % (42-52)
[2017-05-17 21:10] LABS: CALCIUM 8.4 mg/dl (8.5-10.1); CREATININE 0.98 mg/dl (0.60-1.40)
[2017-05-17] MEDS: MIRTAZAPINE TAB 15 MG TAB PO SCH (21:10)
[2017-05-17] MEDS: METOPROLOL TARTRATE 25 MG TAB PO SCH (21:12)
[2017-05-18] VITALS (11 sets, daily range): BP systolic 111–209; BP diastolic 66–116; PULSE 67–86; TEMP 36.4–37.1; O2SAT 98–100
[2017-05-18] MEDS: ERYTHROMYCIN IV 250 MG in SODIUM CHLORIDE 0.9% 250ML 250 ML IV SCH ×4 (01:31→19:51)
[2017-05-18] MEDS: NSS + 20MEQ KCL 1000ML 1,000 ML IV SCH ×3 (01:31→17:58)
[2017-05-18] MEDS: ONDANSETRON INJ 2 MG/ML 2 ML VIAL IV PRN ×2 (05:00→11:32)
[2017-05-18] MEDS: OXYCODONE HCL IR 5 MG TAB (IMMEDIATE RELEASE) PO PRN ×3 (05:01→21:31)
[2017-05-18] MEDS: INSULIN ASPART 100 UNITS/ML 3 ML PEN SC SCH ×4 (06:26→17:58)
[2017-05-18] MEDS: CHECK FENTANYL PATCH PLACEMENT SCH ×3 (07:49→23:17)
[2017-05-18] MEDS: GABAPENTIN 300 MG CAP PO SCH ×3 (09:00→21:15)
[2017-05-18] MEDS: LEVETIRACETAM 500 MG TAB PO SCH ×2 (09:16→21:15)
[2017-05-18] MEDS: DULOXETINE (CYMBALTA) 30 MG CAP PO SCH (09:17)
[2017-05-18] MEDS: FERROUS SULFATE 325 MG TAB PO SCH ×2 (09:17→21:00)
[2017-05-18] MEDS: METOPROLOL TARTRATE 25 MG TAB PO SCH ×2 (09:17→21:16)
[2017-05-18] MEDS: AMLODIPINE BESYLATE 5 MG TAB PO SCH (09:18)
[2017-05-18] MEDS: LISINOPRIL 40 MG TAB PO SCH (09:18)
[2017-05-18] MEDS: METHYLNALTREXONE BROMIDE INJ 12 MG/0.6 ML SYR SQ SCH (09:19)
[2017-05-18] MEDS: HEPARIN SOD 5000 UNIT/0.5 ML CARP SQ SCH ×2 (09:25→21:19)
[2017-05-18] MEDS: INSULIN GLARGINE SOLOSTAR 100 UNITS/ML 3 ML PEN SC SCH (09:26)
[2017-05-18 09:48] LABS: CALCIUM 8.1 mg/dl (8.5-10.1); CREATININE 1.18 mg/dl (0.60-1.40); POTASSIUM 4.1 mmol/L (3.5-5.1)
[2017-05-18] MEDS: PANTOprazole INJ 40 MG in SYRINGE 0 ML IV SCH (11:32)
[2017-05-18] MEDS: LABETALOL HCL IV 5 MG/ML 20ML IV PRN (12:26)
--- NOTE | 2017-05-18 13:44 | Progress Note ---
Medicine Progress Note Date & Time of Visit: May 18, 2017 at 13:44. Subjective patient seen resting in bed, comfortable sleeping but easily rousable states he is having nausea again today denies vomiting pain slightly better denies other symptoms Objective Last 8 Hrs Date Time Temp Pulse Resp B/P (MAP) Pulse Ox O2 Delivery O2 Flow Rate FiO2 05/18/17 12:53 175/102 (126) 05/18/17 12:25 78 209/116 (147) 05/18/17 12:00 Room Air 05/18/17 11:47 36.9 79 16 100 Room Air 05/18/17 09:15 76 164/102 (122) 05/18/17 08:00 Room Air 05/18/17 07:50 37.1 77 18 121/66 (84) 98 Room Air Physical Exam: General- oriented x 3, not in distress, speaks in sentences with no effort Eyes- anicteric Neck- no JVD Lungs- clear breath sounds BL Heart- regular rhythm; no murmur, normal rate Abdomen-(+) hypoactive bowel sounds, non distended, (+) mild tenderness on the epigastric region Extremities- no pretibial edema, no calf tenderness Neuro- alert, oriented x 3; no gross focal deficits Skin- warm & dry Laboratory Results: Last 24 Hours Test 05/17/17 16:30 05/17/17 17:18 05/17/17 18:30 05/17/17 19:42 Stool Occult Blood NEGATIVE Hemoglobin 9.0 g/dL Hematocrit 25.5 % Bedside Glucose 150 mg/dl Sodium Level 138 mmol/L Potassium Level 4.0 mmol/L Chloride Level 106 mmol/L Carbon Dioxide Level 28 mmol/L Anion Gap 4.0 mmol/L Blood Urea Nitrogen 6 mg/dl Creatinine 0.98 mg/dl Est Creatinine Clear Calc Drug Dose 80.4 ml/min Estimated GFR () 103.0 Estimated GFR (Non- 88.9 BUN/Creatinine Ratio 5.8 Random Glucose 141 mg/dl Calcium Level 8.4 mg/dl Magnesium Level 1.5 mg/dl Test 05/18/17 00:20 05/18/17 06:23 05/18/17 09:06 05/18/17 09:13 Bedside Glucose 146 mg/dl 181 mg/dl 164 mg/dl Sodium Level 140 mmol/L Potassium Level 4.1 mmol/L Chloride Level 108 mmol/L Carbon Dioxide Level 26 mmol/L Anion Gap 6.0 mmol/L Blood Urea Nitrogen 6 mg/dl Creatinine 1.18 mg/dl Est Creatinine Clear Calc Drug Dose 66.8 ml/min Estimated GFR () 82.3 Estimated GFR (Non- 71.0 BUN/Creatinine Ratio 4.7 Random Glucose 158 mg/dl Calcium Level 8.1 mg/dl Test 05/18/17 11:35 05/18/17 13:01 Bedside Glucose 150 mg/dl 175 mg/dl Assessment & Plan INTRACTABLE NAUSEA AND VOMITING, GASTROPARESIS Pt with hx gastroparesis, N/V/D, has gastric stimulator. Not controlled on Zofran, compazine, Phenergan. Reglan caused hallucinations. Negative stool cultures and Cdiff in past admission. Pt given Zofran, pepcid 20mg IV, Emend IV in ER, oxycodone 10mg po, fentanyl IV -- GI consulted recommend Erythromycin q6h and NPO until nausea improves -- Emend ordered today -- continue anti emetics -- scheduled for gastric stimulator adjustment on 07/03/17 with a center in [place], [place] -- continue to monitor HYPOKALEMIA K: 3.4 - resolved HYPOMAGNESIA Ma.3. Secondary to GI losses - replaced HYPONATREMIA Na: 131, corrected 133 with gluc of 226 today. Probable secondary to vomiting -- improved to 140 HTN BP in ER 168/98 - 170/113. -labetalol 10mg IV Q6H Lisinopril -hold po metoprolol with N/V, until improves -continue to monitor, may need to adjust DM II Glucose: 226. HA1C: 7.9 on 04/26/17 -novolog sliding scale per protocol, Lantus - Pharmacy consulted IVAN Cr: 1.4, was 1.3 on 05/08/17. pt with volume depletion -- crea improved to 1.16 DIABETIC NEUROPATHY Follows with Dr Hope pain management. On fentanyl patch and oxycodone. New patch placed this am. Hx past intrathecal pump removed secondary to infection -continue fentanyl patch, changed Q48H oxycodone gabapentin SEIZURE DISORDER No recent seizure -continue levetiracetam HX LUNG CA Adenocarcinoma of lung, s/p resection and chemo -followed with Dr Keith DVT PROPHYLAXIS -heparin SQ DISPOSITION -admit tele -Full Code as per discussion with pt -Follows with Dr Burgess for routine care Current Inpatient Medications: Current Inpatient Medications Medications (Trade) Dose Ordered Sig/Cal Route Start Time Stop Time Status Last Admin Dose Admin Acetaminophen (Tylenol Tab) 650 mg Q4H PRN PO 05/15/17 18:00 06/14/17 17:59 Magnesium Hydroxide (Milk Of Magnesia Susp) 30 ml Q12H PRN PO 05/15/17 18:00 06/14/17 17:59 Ondansetron HCl (Zofran Inj) 4 mg Q6H PRN IV 05/15/17 18:00 06/14/17 17:59 05/18/17 11:32 4 MG Nitroglycerin (Nitrostat Tab) 0.4 mg UD PRN SL 05/15/17 18:00 06/14/17 17:59 Glucose (Glucose 40% Gel) 15-30 GRAMS 15 GRAMS... UD PRN PO 05/15/17 18:30 06/14/17 18:29 Glucose (Glucose Chew Tab) 4-8 Tablets 4 Tabl... UD PRN PO 05/15/17 18:30 06/14/17 18:29 Dextrose (Dextrose 50% 50ML Syringe) 25-50ML OF 50% DW IV FOR... UD PRN IV 05/15/17 18:30 06/14/17 18:29 Glucagon (Glucagon Inj) 1 mg UD PRN SQ 05/15/17 18:30 06/14/17 18:29 Albuterol (Ventolin Hfa Inhaler) 2 puffs Q6H PRN INH 05/15/17 18:45 06/14/17 18:44 05/17/17 03:59 2 PUFFS Amlodipine Besylate (Norvasc Tab) 5 mg DAILY PO 05/16/17 09:00 06/15/17 08:59 05/18/17 09:18 5 MG Duloxetine HCl (Cymbalta Cap) 30 mg QAM PO 05/16/17 09:00 06/15/17 08:59 05/18/17 09:17 30 MG Fentanyl (Duragesic Patch) 100 mcg Q2D@0700 TD 05/17/17 07:00 05/31/17 06:59 05/17/17 07:07 100 MCG Levetiracetam (Keppra Tab) 1,000 mg BID PO 05/15/17 21:00 06/14/17 20:59 05/18/17 09:16 1,000 MG Mirtazapine (Remeron Tab) 15 mg HS PO 05/15/17 21:00 06/14/17 20:59 05/17/17 21:10 15 MG Ferrous Sulfate (Feosol Tab) 325 mg BID PO 05/16/17 09:00 06/15/17 08:59 05/18/17 09:17 325 MG Heparin Sodium (Porcine) (Heparin Sq 5000 Unit/0.5ml) 5,000 unit Q12 SQ 05/15/17 21:00 06/14/17 20:59 05/18/17 09:25 5,000 UNIT Labetalol HCl (Normodyne IV) 10 mg Q6 PRN IV 05/15/17 19:30 06/14/17 19:29 05/18/17 12:26 10 MG Potassium Chloride/Sodium Chloride 1,000 ml @ 100 mls/hr Q10H IV 05/15/17 20:30 06/14/17 20:14 05/18/17 07:49 100 MLS/HR Pantoprazole Sodium 40 mg/ Syringe 10 ml @ 5 mls/min DAILY@11 IV 05/16/17 11:00 06/15/17 10:59 05/18/17 11:32 5 MLS/MIN Oxycodone HCl (Roxicodone Immediate Rel Tab) 10 mg Q4H PRN PO 05/15/17 20:30 06/14/17 18:44 05/18/17 05:01 10 MG Miscellaneous (Fentanyl Patch Remove & Waste) 1 ea Q2D@0659 N/A 05/17/17 06:59 06/16/17 06:58 05/17/17 07:06 1 EA Miscellaneous Information (Check Fentanyl Patch Placement) 1 ea QS N/A 05/16/17 00:00 06/15/17 00:00 05/18/17 07:49 1 EA Miscellaneous Information (Consult Glycemic Management Pharmacy) 1 ea UD N/A 05/16/17 09:10 06/15/17 09:09 Gabapentin (Neurontin Cap) 300 mg TID PO 05/16/17 14:00 06/15/17 13:59 05/17/17 21:11 300 MG Methylnaltrexone [place] (Relistor Inj) 12 mg Q2D@0900 SQ 05/16/17 16:00 06/15/17 15:59 05/18/17 09:19 12 MG Insulin Glargine (Lantus Solostar Pen) 15 units QAM SC 05/17/17 09:00 06/16/17 08:59 05/18/17 09:26 15 UNITS Lisinopril (Zestril Tab) 40 mg QAM PO 05/18/17 09:00 06/17/17 08:59 05/18/17 09:18 40 MG Metoprolol Tartrate (Lopressor Tab) 75 mg BID PO 05/17/17 21:00 06/16/17 20:59 05/18/17 09:17 75 MG Erythromycin Lactobionate 250 mg/Sodium Chloride 255 ml @ 250 mls/hr Q6H IV 05/17/17 14:00 05/27/17 13:59 05/18/17 13:36 250 MLS/HR Insulin Aspart (novoLOG ASPART) SLIDING SCALE If C... Q6 SC 05/17/17 18:00 06/14/17 20:59 05/18/17 06:26 1 UNITS Fosaprepitant 150 mg/Sodium Chloride 150 ml @ 300 mls/hr ONE ONCE IV 05/18/17 14:00 05/18/17 14:29
[2017-05-18] MEDS ORDERED: FOSAPREPITANT DIMEGLUMINE INJ 150 MG in SODIUM CHLORIDE 0.9% 150ML 145 ML IV ONE (14:00)
[2017-05-18] MEDS: MIRTAZAPINE TAB 15 MG TAB PO SCH (21:16)
[2017-05-19] VITALS (7 sets, daily range): BP systolic 109–177; BP diastolic 70–103; PULSE 71–97; TEMP 36.5–37.1; O2SAT 98–100; BMI 24.8
[2017-05-19] MEDS: ERYTHROMYCIN IV 250 MG in SODIUM CHLORIDE 0.9% 250ML 250 ML IV SCH ×4 (02:39→19:56)
[2017-05-19] MEDS: LABETALOL HCL IV 5 MG/ML 20ML IV PRN (04:49)
[2017-05-19] MEDS: NSS + 20MEQ KCL 1000ML 1,000 ML IV SCH ×2 (05:57→14:23)
[2017-05-19] MEDS: INSULIN ASPART 100 UNITS/ML 3 ML PEN SC SCH ×4 (05:58→18:15)
[2017-05-19] MEDS: FENTANYL PATCH REMOVE & WASTE SCH (07:03)
[2017-05-19] MEDS: FENTANYL 100 MCG/HR TDSY TD SCH (07:10)
[2017-05-19] MEDS: GABAPENTIN 300 MG CAP PO SCH ×3 (07:46→21:01)
[2017-05-19] MEDS: LISINOPRIL 40 MG TAB PO SCH (07:46)
[2017-05-19] MEDS: LEVETIRACETAM 500 MG TAB PO SCH ×2 (07:46→21:03)
[2017-05-19] MEDS: AMLODIPINE BESYLATE 5 MG TAB PO SCH (07:46)
[2017-05-19] MEDS: CHECK FENTANYL PATCH PLACEMENT SCH ×3 (07:47→23:31)
[2017-05-19] MEDS: DULOXETINE (CYMBALTA) 30 MG CAP PO SCH (07:47)
[2017-05-19] MEDS: FERROUS SULFATE 325 MG TAB PO SCH ×2 (07:47→21:04)
[2017-05-19] MEDS: METOPROLOL TARTRATE 25 MG TAB PO SCH ×2 (07:47→21:04)
[2017-05-19] MEDS: HEPARIN SOD 5000 UNIT/0.5 ML CARP SQ SCH ×2 (07:56→21:07)
[2017-05-19] MEDS: INSULIN GLARGINE SOLOSTAR 100 UNITS/ML 3 ML PEN SC SCH (07:56)
[2017-05-19 08:53] LABS: CALCIUM 8.7 mg/dl (8.5-10.1); CREATININE 1.07 mg/dl (0.60-1.40); POTASSIUM 4.1 mmol/L (3.5-5.1)
[2017-05-19] MEDS: PANTOprazole INJ 40 MG in SYRINGE 0 ML IV SCH (11:14)
[2017-05-19] MEDS: OXYCODONE HCL IR 5 MG TAB (IMMEDIATE RELEASE) PO PRN ×3 (11:16→19:50)
--- NOTE | 2017-05-19 11:24 | Pharmacy Progress Note ---
Pharmacy Glycemic Short Note 2 Date of Service May 19, 2017. OUTPATIENT ANTIDIABETIC REGIMEN: * Lantus 15 units QPM * Humalog ss * A1c = 7.9 % 04/26/17 ASSESSMENT: Item Value Date Time Bedside Glucose 181 mg/dl H 05/18/17 0623 Bedside Glucose 164 mg/dl H 05/18/17 0913 Bedside Glucose 150 mg/dl H 05/18/17 1135 Bedside Glucose 175 mg/dl H 05/18/17 1301 Bedside Glucose 165 mg/dl H 05/18/17 1754 Bedside Glucose 130 mg/dl H 05/18/17 2125 Bedside Glucose 128 mg/dl H 05/19/17 0020 Bedside Glucose 122 mg/dl H 05/19/17 0558 * Mr Hamilton is a 51yo diabetic male, admitted with intractable vomiting/severe nausea. Mr Hamilton is known to the pharmacy glycemic management service from past admissions. * Per previous admissions patient typically requires ~30 units of insulin per day * Patient has been receiving 15 units of insulin per day (1/2 of daily requirement) * Pt is NPO, total insulin regimen is basal insulin which is appropriate. * No changes needed at this time PLAN FOR INPATIENT GLYCEMIC CONTROL: no changes needed at this time * Basal insulin * Lantus 15 units SQ daily * OK to give if NPO as this is 50% of total daily dose required * Bolus insulin * NovoLog per scale ACHS or Q6hrs while NPO * Goal Range: Low 120 mg/dL - High 160 mg/dL * Correction Factor: 30 mg/dL/unit * Nutritional / Prandial insulin per carb ratio of 1 unit per 10 grams CHO consumed
[2017-05-19] MEDS: ONDANSETRON INJ 2 MG/ML 2 ML VIAL IV PRN ×2 (12:58→19:50)
--- NOTE | 2017-05-19 18:25 | Progress Note ---
Medicine Progress Note Date & Time of Visit: May 19, 2017 at 18:19. Subjective patient states he feels less nauseated today, would like to try clears again pain slightly improved denies other symptoms Objective Last 8 Hrs Date Time Temp Pulse Resp B/P (MAP) Pulse Ox O2 Delivery O2 Flow Rate FiO2 05/19/17 16:00 Room Air 05/19/17 15:22 37.1 84 16 174/102 (126) 99 Room Air 167/103 (124) 05/19/17 12:00 Room Air 05/19/17 11:54 37.0 97 18 117/76 (90) Physical Exam: General- oriented x 3, not in distress, speaks in sentences with no effort Eyes- anicteric Neck- no JVD Lungs- clear breath sounds BL, no wheezing Heart- regular rhythm; no murmur, normal rate Abdomen-(+) hypoactive bowel sounds, non distended, no tenderness on the epigastric region Extremities- no pretibial edema, no calf tenderness Neuro- alert, oriented x 3; no gross focal deficits Skin- warm & dry Laboratory Results: Last 24 Hours Test 05/18/17 21:25 05/19/17 00:20 05/19/17 05:58 05/19/17 07:58 Bedside Glucose 130 mg/dl 128 mg/dl 122 mg/dl Sodium Level 139 mmol/L Potassium Level 4.1 mmol/L Chloride Level 107 mmol/L Carbon Dioxide Level 25 mmol/L Anion Gap 8.0 mmol/L Blood Urea Nitrogen 5 mg/dl Creatinine 1.07 mg/dl Est Creatinine Clear Calc Drug Dose 73.7 ml/min Estimated GFR () 92.7 Estimated GFR (Non- 80.0 BUN/Creatinine Ratio 5.0 Random Glucose 131 mg/dl Calcium Level 8.7 mg/dl Test 05/19/17 13:03 05/19/17 16:23 Bedside Glucose 127 mg/dl 101 mg/dl Assessment & Plan INTRACTABLE NAUSEA AND VOMITING, GASTROPARESIS Pt with hx gastroparesis, N/V/D, has gastric stimulator. Not controlled on Zofran, compazine, Phenergan. Reglan caused hallucinations. Negative stool cultures and Cdiff in past admission. Pt given Zofran, pepcid 20mg IV, Emend IV in ER, oxycodone 10mg po, fentanyl IV -- GI consulted recommend Erythromycin q6h and NPO until nausea improves -- Emend ordered 05/18/17 nausea improving resume clear liquids -- continue anti emetics -- scheduled for gastric stimulator adjustment on 07/03/17 with a center in [place], [place] -- continue to monitor HYPOKALEMIA K: 3.4 - resolved HYPOMAGNESIA Ma.3. Secondary to GI losses - replaced HYPONATREMIA Na: 131, corrected 133 with gluc of 226 today. Probable secondary to vomiting -- improved HTN BP in ER 168/98 - 170/113. - on Amlodipine, Metoprolol, Lisinopril add Hydralazine PRN Labetalol -continue to monitor, may need to adjust DM II Glucose: 226. HA1C: 7.9 on 04/26/17 -novolog sliding scale per protocol, Lantus - Pharmacy consulted IVAN Cr: 1.4, was 1.3 on 05/08/17. pt with volume depletion -- crea improved to 1.07 DIABETIC NEUROPATHY Follows with Dr Hope pain management. On fentanyl patch and oxycodone. New patch placed this am. Hx past intrathecal pump removed secondary to infection -continue fentanyl patch, changed Q48H oxycodone gabapentin SEIZURE DISORDER No recent seizure -continue levetiracetam HX LUNG CA Adenocarcinoma of lung, s/p resection and chemo -followed with Dr Keith DVT PROPHYLAXIS -heparin SQ DISPOSITION -admit tele -Full Code as per discussion with pt -Follows with Dr Burgess for routine care Current Inpatient Medications: Current Inpatient Medications Medications (Trade) Dose Ordered Sig/Cal Route Start Time Stop Time Status Last Admin Dose Admin Acetaminophen (Tylenol Tab) 650 mg Q4H PRN PO 05/15/17 18:00 06/14/17 17:59 Magnesium Hydroxide (Milk Of Magnesia Susp) 30 ml Q12H PRN PO 05/15/17 18:00 06/14/17 17:59 Ondansetron HCl (Zofran Inj) 4 mg Q6H PRN IV 05/15/17 18:00 06/14/17 17:59 05/19/17 12:58 4 MG Nitroglycerin (Nitrostat Tab) 0.4 mg UD PRN SL 05/15/17 18:00 06/14/17 17:59 Glucose (Glucose 40% Gel) 15-30 GRAMS 15 GRAMS... UD PRN PO 05/15/17 18:30 06/14/17 18:29 Glucose (Glucose Chew Tab) 4-8 Tablets 4 Tabl... UD PRN PO 05/15/17 18:30 06/14/17 18:29 Dextrose (Dextrose 50% 50ML Syringe) 25-50ML OF 50% DW IV FOR... UD PRN IV 05/15/17 18:30 06/14/17 18:29 Glucagon (Glucagon Inj) 1 mg UD PRN SQ 05/15/17 18:30 06/14/17 18:29 Albuterol (Ventolin Hfa Inhaler) 2 puffs Q6H PRN INH 05/15/17 18:45 06/14/17 18:44 05/17/17 03:59 2 PUFFS Amlodipine Besylate (Norvasc Tab) 5 mg DAILY PO 05/16/17 09:00 06/15/17 08:59 05/19/17 07:46 5 MG Duloxetine HCl (Cymbalta Cap) 30 mg QAM PO 05/16/17 09:00 06/15/17 08:59 05/19/17 07:47 30 MG Fentanyl (Duragesic Patch) 100 mcg Q2D@0700 TD 05/17/17 07:00 05/31/17 06:59 05/19/17 07:10 100 MCG Levetiracetam (Keppra Tab) 1,000 mg BID PO 05/15/17 21:00 06/14/17 20:59 05/19/17 07:46 1,000 MG Mirtazapine (Remeron Tab) 15 mg HS PO 05/15/17 21:00 06/14/17 20:59 05/18/17 21:16 15 MG Ferrous Sulfate (Feosol Tab) 325 mg BID PO 05/16/17 09:00 06/15/17 08:59 05/19/17 07:47 325 MG Heparin Sodium (Porcine) (Heparin Sq 5000 Unit/0.5ml) 5,000 unit Q12 SQ 05/15/17 21:00 06/14/17 20:59 05/19/17 07:56 5,000 UNIT Labetalol HCl (Normodyne IV) 10 mg Q6 PRN IV 05/15/17 19:30 06/14/17 19:29 05/19/17 04:49 10 MG Potassium Chloride/Sodium Chloride 1,000 ml @ 100 mls/hr Q10H IV 05/15/17 20:30 06/14/17 20:14 05/19/17 14:23 100 MLS/HR Pantoprazole Sodium 40 mg/ Syringe 10 ml @ 5 mls/min DAILY@11 IV 05/16/17 11:00 06/15/17 10:59 05/19/17 11:14 5 MLS/MIN Oxycodone HCl (Roxicodone Immediate Rel Tab) 10 mg Q4H PRN PO 05/15/17 20:30 06/14/17 18:44 05/19/17 15:24 10 MG Miscellaneous (Fentanyl Patch Remove & Waste) 1 ea Q2D@0659 N/A 05/17/17 06:59 06/16/17 06:58 05/19/17 07:03 1 EA Miscellaneous Information (Check Fentanyl Patch Placement) 1 ea QS N/A 05/16/17 00:00 06/15/17 00:00 05/19/17 15:25 1 EA Miscellaneous Information (Consult Glycemic Management Pharmacy) 1 ea UD N/A 05/16/17 09:10 06/15/17 09:09 Gabapentin (Neurontin Cap) 300 mg TID PO 05/16/17 14:00 06/15/17 13:59 05/19/17 14:20 300 MG Methylnaltrexone [place] (Relistor Inj) 12 mg Q2D@0900 SQ 05/16/17 16:00 06/15/17 15:59 05/18/17 09:19 12 MG Insulin Glargine (Lantus Solostar Pen) 15 units QAM SC 05/17/17 09:00 06/16/17 08:59 05/19/17 07:56 15 UNITS Lisinopril (Zestril Tab) 40 mg QAM PO 05/18/17 09:00 06/17/17 08:59 05/19/17 07:46 40 MG Metoprolol Tartrate (Lopressor Tab) 75 mg BID PO 05/17/17 21:00 06/16/17 20:59 05/19/17 07:47 75 MG Erythromycin Lactobionate 250 mg/Sodium Chloride 255 ml @ 250 mls/hr Q6H IV 05/17/17 14:00 05/27/17 13:59 05/19/17 14:23 250 MLS/HR Insulin Aspart (novoLOG ASPART) SLIDING SCALE If C... Q6 SC 05/17/17 18:00 06/14/17 20:59 05/18/17 17:58 1 UNITS
[2017-05-19] MEDS: MIRTAZAPINE TAB 15 MG TAB PO SCH (21:01)
[2017-05-19] MEDS ORDERED: NURSING VERBAL MED ORDER ONE (22:30)
[2017-05-20] VITALS (7 sets, daily range): BP systolic 100–155; BP diastolic 55–91; PULSE 64–102; TEMP 36.2–38.1; O2SAT 93–100
[2017-05-20] MEDS: ERYTHROMYCIN IV 250 MG in SODIUM CHLORIDE 0.9% 250ML 250 ML IV SCH ×4 (01:48→20:31)
[2017-05-20] MEDS: NSS + 20MEQ KCL 1000ML 1,000 ML IV SCH ×3 (01:48→20:31)
[2017-05-20] MEDS: OXYCODONE HCL IR 5 MG TAB (IMMEDIATE RELEASE) PO PRN ×4 (01:49→20:43)
[2017-05-20] MEDS: CHECK FENTANYL PATCH PLACEMENT SCH ×3 (07:39→23:51)
[2017-05-20] MEDS: LEVETIRACETAM 500 MG TAB PO SCH ×2 (07:40→20:33)
[2017-05-20] MEDS: GABAPENTIN 300 MG CAP PO SCH ×3 (07:40→20:32)
[2017-05-20] MEDS: DULOXETINE (CYMBALTA) 30 MG CAP PO SCH (07:41)
[2017-05-20] MEDS: LISINOPRIL 40 MG TAB PO SCH (07:41)
[2017-05-20] MEDS: FERROUS SULFATE 325 MG TAB PO SCH ×2 (07:41→20:32)
[2017-05-20] MEDS: AMLODIPINE BESYLATE 5 MG TAB PO SCH (07:41)
[2017-05-20] MEDS: METOPROLOL TARTRATE 25 MG TAB PO SCH ×2 (07:42→20:34)
[2017-05-20] MEDS: HEPARIN SOD 5000 UNIT/0.5 ML CARP SQ SCH ×2 (07:46→20:40)
[2017-05-20] MEDS: INSULIN ASPART 100 UNITS/ML 3 ML PEN SC SCH ×4 (07:52→20:40)
[2017-05-20] MEDS: INSULIN GLARGINE SOLOSTAR 100 UNITS/ML 3 ML PEN SC SCH (07:52)
[2017-05-20 08:59] LABS: CALCIUM 8.3 mg/dl (8.5-10.1); CREATININE 1.67 mg/dl (0.60-1.40); POTASSIUM 3.8 mmol/L (3.5-5.1)
[2017-05-20] MEDS: METHYLNALTREXONE BROMIDE INJ 12 MG/0.6 ML SYR SQ SCH (09:01)
[2017-05-20] MEDS: PANTOprazole INJ 40 MG in SYRINGE 0 ML IV SCH (10:56)
--- NOTE | 2017-05-20 13:59 | Pharmacy Progress Note ---
Pharmacy Glycemic Short Note 2 Date of Service May 20, 2017. OUTPATIENT ANTIDIABETIC REGIMEN: * Lantus 15 units QPM * Humalog ss * A1c = 7.9 % 04/26/17 Item Value Date Time Bedside Glucose 128 mg/dl H 05/19/17 0020 Bedside Glucose 122 mg/dl H 05/19/17 0558 Bedside Glucose 127 mg/dl H 05/19/17 1303 Bedside Glucose 101 mg/dl H 05/19/17 1623 Bedside Glucose 176 mg/dl H 05/19/172010 Bedside Glucose 124 mg/dl H 05/20/17 0710 Bedside Glucose 60 mg/dl *L 05/20/17 1141 Bedside Glucose 66 mg/dl *L 05/20/17 1219 ASSESSMENT: * Mr Hamilton is known to the pharmacy glycemic management service from past admissions. * Per previous admissions patient typically requires ~30 units of insulin per day * Patient has been receiving 15-20 units of insulin per day (1/2 of daily requirement) while NPO * Diet advanced last evening. * Pt with LOW BSG today prior to lunch secondary to too much CHO coverage with breakfast. Will loosen CHO coverage. * No changes need made to basal insulin dosing PLAN FOR INPATIENT GLYCEMIC CONTROL: no changes needed at this time * Basal insulin * Lantus 15 units SQ daily * OK to give if NPO as this is 50% of total daily dose required * Bolus insulin: loosen CHO coverage * NovoLog per scale ACHS or Q6hrs while NPO * Goal Range: Low 120 mg/dL - High 160 mg/dL * Correction Factor: 30 mg/dL/unit * Nutritional / Prandial insulin per carb ratio of 1 unit per 12 grams CHO consumed
[2017-05-20] MEDS: ONDANSETRON INJ 2 MG/ML 2 ML VIAL IV PRN ×2 (15:14→21:36)
[2017-05-20] MEDS ORDERED: FOSAPREPITANT DIMEGLUMINE INJ 150 MG in SODIUM CHLORIDE 0.9% 150ML 145 ML IV ONE (18:30)
--- NOTE | 2017-05-20 19:51 | Progress Note ---
Medicine Progress Note Date & Time of Visit: May 20, 2017 at 19:48. Subjective seen resting in bed states he is tolerating full liquid diet today still has nausea though, reports 2 episodes of emesis denies chest pain, dyspnea no other symptoms Objective Last 8 Hrs Date Time Temp Pulse Resp B/P (MAP) Pulse Ox O2 Delivery O2 Flow Rate FiO2 05/20/17 19:10 38.0 102 20 139/75 (96) 93 Room Air 05/20/17 16:14 36.9 95 18 155/91 (112) 97 Room Air 05/20/17 16:00 Room Air 05/20/17 12:00 Room Air Physical Exam: General- oriented x 3, not in distress, speaks in sentences with no effort Neck- no JVD Lungs- clear breath sounds bilaterally Heart- regular rhythm; no murmur, normal rate Abdomen-some bowel sounds, non distended, no tenderness on the epigastric region Extremities- no pretibial edema, no calf tenderness Neuro- alert, oriented x 3; no gross focal deficits Skin- warm & dry Laboratory Results: Last 24 Hours Test 05/19/17 20:11 05/20/17 07:10 05/20/17 08:16 05/20/17 11:41 Bedside Glucose 176 mg/dl 124 mg/dl 60 mg/dl Sodium Level 139 mmol/L Potassium Level 3.8 mmol/L Chloride Level 106 mmol/L Carbon Dioxide Level 24 mmol/L Anion Gap 9.0 mmol/L Blood Urea Nitrogen 6 mg/dl Creatinine 1.67 mg/dl Est Creatinine Clear Calc Drug Dose 50.6 ml/min Estimated GFR () 54.1 Estimated GFR (Non- 46.7 BUN/Creatinine Ratio 3.5 Random Glucose 114 mg/dl Calcium Level 8.3 mg/dl Test 05/20/17 12:00 05/20/17 12:19 05/20/17 16:30 Bedside Glucose 56 mg/dl 66 mg/dl 165 mg/dl Assessment & Plan INTRACTABLE NAUSEA AND VOMITING, GASTROPARESIS Pt with hx gastroparesis, N/V/D, has gastric stimulator. Not controlled on Zofran, compazine, Phenergan. Reglan caused hallucinations. Negative stool cultures and Cdiff in past admission. Pt given Zofran, pepcid 20mg IV, Emend IV in ER, oxycodone 10mg po, fentanyl IV -- GI consulted recommend Erythromycin q6h -- Emend ordered 05/18/17 nausea still present but improving started full liquids today -- continue anti emetics may benefit from additional Emend will request GI to re-evaluated -- scheduled for gastric stimulator adjustment on 07/03/17 with a center in [place], [place] -- continue to monitor HYPOKALEMIA K: 3.4 - resolved HYPOMAGNESIA Ma.3. Secondary to GI losses - replaced HYPONATREMIA Na: 131, corrected 133 with gluc of 226 today. Probable secondary to vomiting -- improved HTN BP in ER 168/98 - 170/113. - on Amlodipine, Metoprolol, Lisinopril added Hydralazine, BP improving PRN Labetalol -continue to monitor, may need to adjust DM II Glucose: 226. HA1C: 7.9 on 04/26/17 -novolog sliding scale per protocol, Lantus - Pharmacy consulted IVAN Cr: 1.4, was 1.3 on 05/08/17. pt with volume depletion -- crea improved increased to 1.6 IV NSS increased DIABETIC NEUROPATHY Follows with Dr Hope pain management. On fentanyl patch and oxycodone. Hx past intrathecal pump removed secondary to infection -continue fentanyl patch, change Q48H oxycodone gabapentin SEIZURE DISORDER No recent seizure -continue levetiracetam HX LUNG CA - Adenocarcinoma of lung, s/p resection and chemo - followed with Dr Keith DVT PROPHYLAXIS -heparin SQ DISPOSITION -admit tele -Full Code as per discussion with pt -Follows with Dr Burgess for routine care Current Inpatient Medications: Current Inpatient Medications Medications (Trade) Dose Ordered Sig/Cal Route Start Time Stop Time Status Last Admin Dose Admin Acetaminophen (Tylenol Tab) 650 mg Q4H PRN PO 05/15/17 18:00 06/14/17 17:59 Magnesium Hydroxide (Milk Of Magnesia Susp) 30 ml Q12H PRN PO 05/15/17 18:00 06/14/17 17:59 Ondansetron HCl (Zofran Inj) 4 mg Q6H PRN IV 05/15/17 18:00 06/14/17 17:59 05/20/17 15:14 4 MG Nitroglycerin (Nitrostat Tab) 0.4 mg UD PRN SL 05/15/17 18:00 06/14/17 17:59 Glucose (Glucose 40% Gel) 15-30 GRAMS 15 GRAMS... UD PRN PO 05/15/17 18:30 06/14/17 18:29 Glucose (Glucose Chew Tab) 4-8 Tablets 4 Tabl... UD PRN PO 05/15/17 18:30 06/14/17 18:29 Dextrose (Dextrose 50% 50ML Syringe) 25-50ML OF 50% DW IV FOR... UD PRN IV 05/15/17 18:30 06/14/17 18:29 Glucagon (Glucagon Inj) 1 mg UD PRN SQ 05/15/17 18:30 06/14/17 18:29 Albuterol (Ventolin Hfa Inhaler) 2 puffs Q6H PRN INH 05/15/17 18:45 06/14/17 18:44 05/17/17 03:59 2 PUFFS Amlodipine Besylate (Norvasc Tab) 5 mg DAILY PO 05/16/17 09:00 06/15/17 08:59 05/20/17 07:41 5 MG Duloxetine HCl (Cymbalta Cap) 30 mg QAM PO 05/16/17 09:00 06/15/17 08:59 05/20/17 07:41 30 MG Fentanyl (Duragesic Patch) 100 mcg Q2D@0700 TD 05/17/17 07:00 05/31/17 06:59 05/19/17 07:10 100 MCG Levetiracetam (Keppra Tab) 1,000 mg BID PO 05/15/17 21:00 06/14/17 20:59 05/20/17 07:40 1,000 MG Mirtazapine (Remeron Tab) 15 mg HS PO 05/15/17 21:00 06/14/17 20:59 05/19/17 21:01 15 MG Ferrous Sulfate (Feosol Tab) 325 mg BID PO 05/16/17 09:00 06/15/17 08:59 05/20/17 07:41 325 MG Heparin Sodium (Porcine) (Heparin Sq 5000 Unit/0.5ml) 5,000 unit Q12 SQ 05/15/17 21:00 06/14/17 20:59 05/20/17 07:46 5,000 UNIT Labetalol HCl (Normodyne IV) 10 mg Q6 PRN IV 05/15/17 19:30 06/14/17 19:29 05/19/17 04:49 10 MG Potassium Chloride/Sodium Chloride 1,000 ml @ 125 mls/hr Q8H IV 05/15/17 20:30 06/14/17 20:14 05/20/17 10:02 100 MLS/HR Pantoprazole Sodium 40 mg/ Syringe 10 ml @ 5 mls/min DAILY@11 IV 05/16/17 11:00 06/15/17 10:59 05/20/17 10:56 5 MLS/MIN Oxycodone HCl (Roxicodone Immediate Rel Tab) 10 mg Q4H PRN PO 05/15/17 20:30 06/14/17 18:44 05/20/17 15:12 10 MG Miscellaneous (Fentanyl Patch Remove & Waste) 1 ea Q2D@0659 N/A 05/17/17 06:59 06/16/17 06:58 05/19/17 07:03 1 EA Miscellaneous Information (Check Fentanyl Patch Placement) 1 ea QS N/A 05/16/17 00:00 06/15/17 00:00 05/20/17 15:58 1 EA Miscellaneous Information (Consult Glycemic Management Pharmacy) 1 ea UD N/A 05/16/17 09:10 06/15/17 09:09 Gabapentin (Neurontin Cap) 300 mg TID PO 05/16/17 14:00 06/15/17 13:59 05/20/17 14:22 300 MG Methylnaltrexone [place] (Relistor Inj) 12 mg Q2D@0900 SQ 05/16/17 16:00 06/15/17 15:59 05/20/17 09:01 12 MG Insulin Glargine (Lantus Solostar Pen) 15 units QAM SC 05/17/17 09:00 06/16/17 08:59 05/20/17 07:52 15 UNITS Metoprolol Tartrate (Lopressor Tab) 75 mg BID PO 05/17/17 21:00 06/16/17 20:59 05/20/17 07:42 75 MG Erythromycin Lactobionate 250 mg/Sodium Chloride 255 ml @ 250 mls/hr Q6H IV 05/17/17 14:00 05/27/17 13:59 05/20/17 14:22 250 MLS/HR Hydralazine HCl (Apresoline Tab) 25 mg BID PO 05/19/17 21:00 06/18/17 20:59 05/20/17 07:40 25 MG Insulin Aspart (novoLOG ASPART) SLIDING SCALE If C... ACHS SC 05/20/17 06:30 06/19/17 06:29 05/20/17 07:52 7 UNITS
[2017-05-20] MEDS: MIRTAZAPINE TAB 15 MG TAB PO SCH (20:36)
[2017-05-21] VITALS (7 sets, daily range): BP systolic 110–155; BP diastolic 63–79; PULSE 74–97; TEMP 36.2–37.8; O2SAT 93–100; Ht 172.7 cm; Wt 84.4 kg
[2017-05-21] MEDS: ERYTHROMYCIN IV 250 MG in SODIUM CHLORIDE 0.9% 250ML 250 ML IV SCH ×2 (02:11→08:34)
[2017-05-21] MEDS: NSS + 20MEQ KCL 1000ML 1,000 ML IV SCH ×3 (04:05→20:51)
[2017-05-21] MEDS: ONDANSETRON INJ 2 MG/ML 2 ML VIAL IV PRN ×3 (04:31→18:38)
[2017-05-21] MEDS: OXYCODONE HCL IR 5 MG TAB (IMMEDIATE RELEASE) PO PRN ×4 (04:32→20:47)
[2017-05-21 06:28] LABS: CALCIUM 7.4 mg/dl (8.5-10.1); CREATININE 1.55 mg/dl (0.60-1.40); POTASSIUM 4.6 mmol/L (3.5-5.1)
[2017-05-21] MEDS: FENTANYL PATCH REMOVE & WASTE SCH (07:32)
[2017-05-21] MEDS: FENTANYL 100 MCG/HR TDSY TD SCH (07:36)
[2017-05-21] MEDS: DULOXETINE (CYMBALTA) 30 MG CAP PO SCH (08:36)
[2017-05-21] MEDS: FERROUS SULFATE 325 MG TAB PO SCH ×2 (08:36→21:12)
[2017-05-21] MEDS: METOPROLOL TARTRATE 25 MG TAB PO SCH ×2 (08:38→21:13)
[2017-05-21] MEDS: LEVETIRACETAM 500 MG TAB PO SCH ×2 (08:39→20:50)
[2017-05-21] MEDS: GABAPENTIN 300 MG CAP PO SCH ×3 (08:39→21:14)
[2017-05-21] MEDS: CHECK FENTANYL PATCH PLACEMENT SCH ×2 (08:40→16:16)
[2017-05-21] MEDS: INSULIN ASPART 100 UNITS/ML 3 ML PEN SC SCH ×4 (08:49→20:51)
[2017-05-21] MEDS: HEPARIN SOD 5000 UNIT/0.5 ML CARP SQ SCH ×2 (08:50→21:13)
[2017-05-21] MEDS: ALBUTEROL HFA 8 GM INHALER INH PRN (08:52)
--- NOTE | 2017-05-21 09:16 | Progress Note ---
Progress Note Date of Service May 21, 2017. Progress Note Pt was seen and evaluated, chart reviewed. GI asked to re-evaluate as pt will need conversion from IV to PO e-mycin due to shortage. Pt notes that he continues to have chronic pain, narcotic dependent. Notes that he had improvement of his N/V w/ e-mycin but still present. Notes he had an episode of emesis yesterday (all bile). He tells me he is hungry and wants a regular diet. Moving his bowels daily, loose stools. No black/bloody stools. He is following up in June for a gastric pacer check. No acute distress. Lungs CTA Heart RRR Abd is soft, nondistended with good bowel sounds 51 yr old male with diabetes and narcotic induced gastroparesis. 1. DC e-mycin 250mg IV QID 2. Start PO e-mycin 250mg QID 3. Continue Relistor, Emend, Zofran, Phenergan. 4. NPO until vomiting improves then restart liquids, ok to advance to gastroparesis diet as tolerated 5. Would minimize narcotic use. GI to sign off. Please call with any questions or concerns.
[2017-05-21] MEDS: AMLODIPINE BESYLATE 5 MG TAB PO SCH (09:56)
[2017-05-21] MEDS: INSULIN GLARGINE SOLOSTAR 100 UNITS/ML 3 ML PEN SC SCH (10:09)
[2017-05-21] MEDS: PANTOprazole INJ 40 MG in SYRINGE 0 ML IV SCH (10:10)
[2017-05-21] MEDS: ERYTHROMYCIN DELAYED RELEASE 250 MG CAP PO SCH ×3 (13:13→20:50)
--- NOTE | 2017-05-21 14:06 | Progress Note ---
Medicine Progress Note Date & Time of Visit: May 21, 2017 at 13:48. Subjective Pt was seen and examined Sitting in bed with no distress Pt said that he had 2 episodes of vomiting last night and this morning He said that the emend seems to be the only thing that work for the vomiting He wants to get regular diet he does not want to be on full liquid diet Pt understands that a regular diet might make the nausea and vomiting worst Pt was walking in the hallway He said that he continue to have abdominal pain that he said that is chronic Denies any chest pain, palpitation, dizziness and SOB Objective Last 8 Hrs Date Time Temp Pulse Resp B/P (MAP) Pulse Ox O2 Delivery O2 Flow Rate FiO2 05/21/17 12:33 Room Air 05/21/17 11:32 36.5 77 16 110/63 (79) 100 Room Air 05/21/17 09:50 Room Air 05/21/17 08:00 Room Air 05/21/17 06:38 36.9 97 21 122/68 (86) 97 Room Air Physical Exam: General- No acute distress Head- atraumatic Eyes- PERRL, EOMI ENT- oropharynx clear Neck- supple, no JVD Lungs- No wheezing Heart- regular rhythm; no murmur Abdomen- normal bowel sounds, soft, Extremities-no calf tenderness Neuro- alert, oriented x 3; PERRL, EOMI Skin- warm & dry Laboratory Results: Last 24 Hours Test 05/20/17 16:30 05/20/17 20:03 05/21/17 05:11 05/21/17 07:01 Bedside Glucose 165 mg/dl 238 mg/dl 93 mg/dl Sodium Level 135 mmol/L Potassium Level 4.6 mmol/L Chloride Level 106 mmol/L Carbon Dioxide Level 24 mmol/L Anion Gap 5.0 mmol/L Blood Urea Nitrogen 6 mg/dl Creatinine 1.55 mg/dl Est Creatinine Clear Calc Drug Dose 54.5 ml/min Estimated GFR () 59.2 Estimated GFR (Non- 51.1 BUN/Creatinine Ratio 3.9 Random Glucose 121 mg/dl Calcium Level 7.4 mg/dl Test 05/21/17 10:50 Bedside Glucose 135 mg/dl Assessment & Plan INTRACTABLE NAUSEA AND VOMITING GASTROPARESIS hx gastroparesis has gastric stimulator. N/V seems does not control with Zofran, compazine, Phenergan. GI consulted, recommend Erythromycin q6h PO Emend seems to help scheduled for gastric stimulator adjustment on 07/03/17 with a center in [place], [place] Diet advanced as tolerated HYPOKALEMIA K stable Continue monitor BMP HYPOMAGNESIA stable HYPONATREMIA Na on admission 131 Na 135 today stable HTN BP stable Continue current management Continue monitor BP DM II HA1C: 7.9 on 04/26/17 On novolog sliding scale per protocol, Lantus Continue monitor BS IVAN Cr: 1.4, was 1.3 on 05/08/17. pt with volume depletion Creatine slightly improved from 1.6 to 1.5 Continue IVF Monitor BMP DIABETIC NEUROPATHY Follows with Dr Hope pain management. On fentanyl patch and oxycodone. Hx past intrathecal pump removed secondary to infection continue fentanyl patch, change Q48H, oxycodone, gabapentin SEIZURE DISORDER No recent seizure On levetiracetam and gabapentin HX LUNG CA Adenocarcinoma of lung, s/p resection and chemo followed with Dr Sagar Schofield TOBACCO ABUSE Counseling on tobacco cessation DVT PROPHYLAXIS -heparin SQ DISPOSITION Possible discharge tomorrow Current Inpatient Medications: Current Inpatient Medications Medications (Trade) Dose Ordered Sig/Cal Route Start Time Stop Time Status Last Admin Dose Admin Acetaminophen (Tylenol Tab) 650 mg Q4H PRN PO 05/15/17 18:00 06/14/17 17:59 05/20/17 23:50 650 MG Magnesium Hydroxide (Milk Of Magnesia Susp) 30 ml Q12H PRN PO 05/15/17 18:00 06/14/17 17:59 Ondansetron HCl (Zofran Inj) 4 mg Q6H PRN IV 05/15/17 18:00 06/14/17 17:59 05/21/17 12:20 4 MG Nitroglycerin (Nitrostat Tab) 0.4 mg UD PRN SL 05/15/17 18:00 06/14/17 17:59 Glucose (Glucose 40% Gel) 15-30 GRAMS 15 GRAMS... UD PRN PO 05/15/17 18:30 06/14/17 18:29 Glucose (Glucose Chew Tab) 4-8 Tablets 4 Tabl... UD PRN PO 05/15/17 18:30 06/14/17 18:29 Dextrose (Dextrose 50% 50ML Syringe) 25-50ML OF 50% DW IV FOR... UD PRN IV 05/15/17 18:30 06/14/17 18:29 Glucagon (Glucagon Inj) 1 mg UD PRN SQ 05/15/17 18:30 06/14/17 18:29 Albuterol (Ventolin Hfa Inhaler) 2 puffs Q6H PRN INH 05/15/17 18:45 06/14/17 18:44 05/21/17 08:52 2 PUFFS Amlodipine Besylate (Norvasc Tab) 5 mg DAILY PO 05/16/17 09:00 06/15/17 08:59 05/21/17 09:56 5 MG Duloxetine HCl (Cymbalta Cap) 30 mg QAM PO 05/16/17 09:00 06/15/17 08:59 05/21/17 08:36 30 MG Fentanyl (Duragesic Patch) 100 mcg Q2D@0700 TD 05/17/17 07:00 05/31/17 06:59 05/21/17 07:36 100 MCG Levetiracetam (Keppra Tab) 1,000 mg BID PO 05/15/17 21:00 06/14/17 20:59 05/21/17 08:39 1,000 MG Mirtazapine (Remeron Tab) 15 mg HS PO 05/15/17 21:00 06/14/17 20:59 05/20/17 20:36 15 MG Ferrous Sulfate (Feosol Tab) 325 mg BID PO 05/16/17 09:00 06/15/17 08:59 05/21/17 08:36 325 MG Heparin Sodium (Porcine) (Heparin Sq 5000 Unit/0.5ml) 5,000 unit Q12 SQ 05/15/17 21:00 06/14/17 20:59 05/21/17 08:50 5,000 UNIT Labetalol HCl (Normodyne IV) 10 mg Q6 PRN IV 05/15/17 19:30 06/14/17 19:29 05/19/17 04:49 10 MG Potassium Chloride/Sodium Chloride 1,000 ml @ 125 mls/hr Q8H IV 05/15/17 20:30 06/14/17 20:14 05/21/17 13:26 125 MLS/HR Pantoprazole Sodium 40 mg/ Syringe 10 ml @ 5 mls/min DAILY@11 IV 05/16/17 11:00 06/15/17 10:59 05/21/17 10:10 5 MLS/MIN Oxycodone HCl (Roxicodone Immediate Rel Tab) 10 mg Q4H PRN PO 05/15/17 20:30 06/14/17 18:44 05/21/17 10:07 10 MG Miscellaneous (Fentanyl Patch Remove & Waste) 1 ea Q2D@0659 N/A 05/17/17 06:59 06/16/17 06:58 05/21/17 07:32 1 EA Miscellaneous Information (Check Fentanyl Patch Placement) 1 ea QS N/A 05/16/17 00:00 06/15/17 00:00 05/21/17 08:40 1 EA Miscellaneous Information (Consult Glycemic Management Pharmacy) 1 ea UD N/A 05/16/17 09:10 06/15/17 09:09 Gabapentin (Neurontin Cap) 300 mg TID PO 05/16/17 14:00 06/15/17 13:59 05/21/17 13:13 300 MG Methylnaltrexone [place] (Relistor Inj) 12 mg Q2D@0900 SQ 05/16/17 16:00 06/15/17 15:59 05/20/17 09:01 12 MG Insulin Glargine (Lantus Solostar Pen) 15 units QAM SC 05/17/17 09:00 06/16/17 08:59 05/21/17 10:09 15 UNITS Metoprolol Tartrate (Lopressor Tab) 75 mg BID PO 05/17/17 21:00 06/16/17 20:59 05/21/17 08:38 50 MG Hydralazine HCl (Apresoline Tab) 25 mg BID PO 05/19/17 21:00 06/18/17 20:59 05/21/17 08:36 25 MG Insulin Aspart (novoLOG ASPART) SLIDING SCALE If C... ACHS SC 05/20/17 06:30 06/19/17 06:29 05/21/17 08:49 6 UNITS Erythromycin (Eryc Delayed Rel Cap) 250 mg QID PO 05/21/17 13:00 05/31/17 12:59 05/21/17 13:13 250 MG
[2017-05-21] MEDS: MIRTAZAPINE TAB 15 MG TAB PO SCH (20:51)
[2017-05-22] MEDS: CHECK FENTANYL PATCH PLACEMENT SCH ×4 (00:10→23:38)
[2017-05-22] MEDS: ONDANSETRON INJ 2 MG/ML 2 ML VIAL IV PRN ×4 (02:40→20:52)
[2017-05-22] MEDS: OXYCODONE HCL IR 5 MG TAB (IMMEDIATE RELEASE) PO PRN ×5 (02:41→23:41)
[2017-05-22] MEDS: NSS + 20MEQ KCL 1000ML 1,000 ML IV SCH (03:58)
[2017-05-22 07:31] VITALS: BP 180/97; PULSE 88; TEMP 36.9; O2SAT 95
[2017-05-22 08:00] VITALS: O2SAT 95
[2017-05-22 08:02] LABS: CALCIUM 7.9 mg/dl (8.5-10.1); CREATININE 1.61 mg/dl (0.60-1.40); POTASSIUM 5.6 mmol/L (3.5-5.1)
[2017-05-22] MEDS: DULOXETINE (CYMBALTA) 30 MG CAP PO SCH (08:41)
[2017-05-22] MEDS: ERYTHROMYCIN DELAYED RELEASE 250 MG CAP PO SCH ×4 (08:41→21:10)
[2017-05-22] MEDS: LEVETIRACETAM 500 MG TAB PO SCH ×2 (08:41→21:10)
[2017-05-22] MEDS: AMLODIPINE BESYLATE 5 MG TAB PO SCH (08:42)
[2017-05-22] MEDS: GABAPENTIN 300 MG CAP PO SCH ×3 (08:42→21:09)
[2017-05-22] MEDS: METOPROLOL TARTRATE 25 MG TAB PO SCH ×2 (08:42→21:09)
[2017-05-22] MEDS: FERROUS SULFATE 325 MG TAB PO SCH ×2 (08:42→21:10)
[2017-05-22] MEDS: INSULIN ASPART 100 UNITS/ML 3 ML PEN SC SCH ×4 (08:47→21:07)
[2017-05-22] MEDS: INSULIN GLARGINE SOLOSTAR 100 UNITS/ML 3 ML PEN SC SCH (08:48)
[2017-05-22] MEDS: METHYLNALTREXONE BROMIDE INJ 12 MG/0.6 ML SYR SQ SCH (08:48)
[2017-05-22] MEDS: HEPARIN SOD 5000 UNIT/0.5 ML CARP SQ SCH ×2 (08:48→21:07)
[2017-05-22] MEDS: MAGNESIUM SULFATE 1GM / D5W 1 GM in PREMIXED IN D5W 100 ML IV SCH ×3 (09:59→11:57)
[2017-05-22] MEDS: PANTOprazole INJ 40 MG in SYRINGE 0 ML IV SCH (11:01)
--- NOTE | 2017-05-22 12:50 | Pharmacy Progress Note ---
Glycemic: Assessment & Plan Date of Service May 22, 2017. Assessment & Plan The patient is currently receiving 27 units of insulin per day. BSGs ranging 77 - 153 mg/dl over the past 24hrs. * Basal insulin: Lantus 15 units every 24 hours * Correctional Insulin: Novolog Correction per scale ACHS Goal Range: Low 110 mg/dL - High 150 mg/dL Correction Factor: 30 mg/dL/unit * Prandial insulin: Per carb ratio of 1 unit per 12 grams CHO consumed BSGs continue to improve, no changes needed to inpatient regimen at this time. Pharmacy will continue to monitor patient daily and write orders per [facility] inpatient glycemic control protocol. Thanks. * Please note that the plan above was derived based on current level of insulin resistance and hospital stress. These recommendations are appropriate for inpatient admission only. Plan of care upon discharge will need to be reassessed to avoid potential outpatient hypo/hyperglycemia.
[2017-05-22 15:57] VITALS: BP 157/78; PULSE 71; TEMP 37.3; O2SAT 91
--- NOTE | 2017-05-22 16:08 | Progress Note ---
Medicine Progress Note Date & Time of Visit: May 22, 2017 at 16:01. Subjective Pt was seen and examined Sitting in bed with no distress Pt said that he feels nauseated Pt said that he had regular diet yesterday tolerated for about 3 hrs than stating to feel nauseated and vomited a little in the middle of the night He does not want his diet change to clear liquid Denies any chest pain, palpitation and SOB Objective Last 8 Hrs Date Time Temp Pulse Resp B/P (MAP) Pulse Ox O2 Delivery O2 Flow Rate FiO2 05/22/17 15:57 37.3 71 18 157/78 (104) 91 05/22/17 12:00 Room Air Physical Exam: General- No acute distress Head- atraumatic Eyes- PERRL, EOMI ENT- oropharynx clear Neck- supple, no JVD Lungs- No wheezing Heart- regular rhythm; no murmur Abdomen- normal bowel sounds, soft, Extremities-no calf tenderness Neuro- alert, oriented x 3; PERRL, EOMI Skin- warm & dry Laboratory Results: Last 24 Hours Test 05/21/17 16:23 05/21/17 20:38 05/22/17 00:25 05/22/17 06:41 Bedside Glucose 153 mg/dl 77 mg/dl 189 mg/dl Sodium Level 138 mmol/L Potassium Level 5.6 mmol/L Chloride Level 108 mmol/L Carbon Dioxide Level 26 mmol/L Anion Gap 4.0 mmol/L Blood Urea Nitrogen 8 mg/dl Creatinine 1.61 mg/dl Est Creatinine Clear Calc Drug Dose 52.5 ml/min Estimated GFR () 56.5 Estimated GFR (Non- 48.8 BUN/Creatinine Ratio 5.1 Random Glucose 197 mg/dl Calcium Level 7.9 mg/dl Magnesium Level 1.1 mg/dl Test 05/22/17 07:49 05/22/17 11:50 Bedside Glucose 199 mg/dl 175 mg/dl Assessment & Plan INTRACTABLE NAUSEA AND VOMITING GASTROPARESIS hx gastroparesis has gastric stimulator. N/V seems does not control with Zofran, compazine, Phenergan. GI consulted, recommend Erythromycin q6h PO Emend seems to help will give a dose of emend today scheduled for gastric stimulator adjustment on 07/03/17 with a center in [place], [place] Diet advanced as tolerated HYPERKALEMIA Due to IVF with K k 5.6 D/C IVF Will repeat K HYPOMAGNESIA Mg 1.1 Mg replaced Continue monitor HYPONATREMIA Na on admission 131 Na 138 today stable HTN BP stable Continue current management Continue monitor BP DM II HA1C: 7.9 on 04/26/17 On novolog sliding scale per protocol, Lantus Continue monitor BS IVAN Cr: 1.4, was 1.3 on 05/08/17. pt with volume depletion Creatine 1.6 today will change IVF to NS Continue IVF Monitor BMP DIABETIC NEUROPATHY Follows with Dr Hope pain management. On fentanyl patch and oxycodone. Hx past intrathecal pump removed secondary to infection continue fentanyl patch, change Q48H, oxycodone, gabapentin SEIZURE DISORDER No recent seizure On levetiracetam and gabapentin HX LUNG CA Adenocarcinoma of lung, s/p resection and chemo followed with Dr Sagar Schofield TOBACCO ABUSE Counseling on tobacco cessation DVT PROPHYLAXIS -heparin SQ DISPOSITION Possible discharge tomorrow Current Inpatient Medications: Current Inpatient Medications Medications (Trade) Dose Ordered Sig/Cal Route Start Time Stop Time Status Last Admin Dose Admin Acetaminophen (Tylenol Tab) 650 mg Q4H PRN PO 05/15/17 18:00 06/14/17 17:59 05/20/17 23:50 650 MG Magnesium Hydroxide (Milk Of Magnesia Susp) 30 ml Q12H PRN PO 05/15/17 18:00 06/14/17 17:59 Ondansetron HCl (Zofran Inj) 4 mg Q6H PRN IV 05/15/17 18:00 06/14/17 17:59 05/22/17 14:31 4 MG Nitroglycerin (Nitrostat Tab) 0.4 mg UD PRN SL 05/15/17 18:00 06/14/17 17:59 Glucose (Glucose 40% Gel) 15-30 GRAMS 15 GRAMS... UD PRN PO 05/15/17 18:30 06/14/17 18:29 Glucose (Glucose Chew Tab) 4-8 Tablets 4 Tabl... UD PRN PO 05/15/17 18:30 06/14/17 18:29 Dextrose (Dextrose 50% 50ML Syringe) 25-50ML OF 50% DW IV FOR... UD PRN IV 05/15/17 18:30 06/14/17 18:29 Glucagon (Glucagon Inj) 1 mg UD PRN SQ 05/15/17 18:30 06/14/17 18:29 Albuterol (Ventolin Hfa Inhaler) 2 puffs Q6H PRN INH 05/15/17 18:45 06/14/17 18:44 05/21/17 08:52 2 PUFFS Amlodipine Besylate (Norvasc Tab) 5 mg DAILY PO 05/16/17 09:00 06/15/17 08:59 05/22/17 08:42 5 MG Duloxetine HCl (Cymbalta Cap) 30 mg QAM PO 05/16/17 09:00 06/15/17 08:59 05/22/17 08:41 30 MG Fentanyl (Duragesic Patch) 100 mcg Q2D@0700 TD 05/17/17 07:00 05/31/17 06:59 05/21/17 07:36 100 MCG Levetiracetam (Keppra Tab) 1,000 mg BID PO 05/15/17 21:00 06/14/17 20:59 05/22/17 08:41 1,000 MG Mirtazapine (Remeron Tab) 15 mg HS PO 05/15/17 21:00 06/14/17 20:59 05/21/17 20:51 15 MG Ferrous Sulfate (Feosol Tab) 325 mg BID PO 05/16/17 09:00 06/15/17 08:59 05/22/17 08:42 325 MG Heparin Sodium (Porcine) (Heparin Sq 5000 Unit/0.5ml) 5,000 unit Q12 SQ 05/15/17 21:00 06/14/17 20:59 05/22/17 08:48 5,000 UNIT Labetalol HCl (Normodyne IV) 10 mg Q6 PRN IV 05/15/17 19:30 06/14/17 19:29 05/19/17 04:49 10 MG Pantoprazole Sodium 40 mg/ Syringe 10 ml @ 5 mls/min DAILY@11 IV 05/16/17 11:00 06/15/17 10:59 05/22/17 11:01 5 MLS/MIN Oxycodone HCl (Roxicodone Immediate Rel Tab) 10 mg Q4H PRN PO 05/15/17 20:30 06/14/17 18:44 05/22/17 14:32 10 MG Miscellaneous (Fentanyl Patch Remove & Waste) 1 ea Q2D@0659 N/A 05/17/17 06:59 06/16/17 06:58 05/21/17 07:32 1 EA Miscellaneous Information (Check Fentanyl Patch Placement) 1 ea QS N/A 05/16/17 00:00 06/15/17 00:00 05/22/17 08:50 1 EA Miscellaneous Information (Consult Glycemic Management Pharmacy) 1 ea UD N/A 05/16/17 09:10 06/15/17 09:09 Gabapentin (Neurontin Cap) 300 mg TID PO 05/16/17 14:00 06/15/17 13:59 05/22/17 14:46 300 MG Methylnaltrexone [place] (Relistor Inj) 12 mg Q2D@0900 SQ 05/16/17 16:00 06/15/17 15:59 05/22/17 08:48 12 MG Insulin Glargine (Lantus Solostar Pen) 15 units QAM SC 05/17/17 09:00 06/16/17 08:59 05/22/17 08:48 15 UNITS Metoprolol Tartrate (Lopressor Tab) 75 mg BID PO 05/17/17 21:00 06/16/17 20:59 05/22/17 08:42 75 MG Hydralazine HCl (Apresoline Tab) 25 mg BID PO 05/19/17 21:00 06/18/17 20:59 05/22/17 08:42 25 MG Insulin Aspart (novoLOG ASPART) SLIDING SCALE If C... ACHS SC 05/20/17 06:30 06/19/17 06:29 05/22/17 12:46 2 UNITS Erythromycin (Eryc Delayed Rel Cap) 250 mg QID PO 05/21/17 13:00 05/31/17 12:59 05/22/17 12:47 250 MG
[2017-05-22] MEDS ORDERED: SODIUM CHLORIDE 0.9% 1000ML 1,000 ML IV SCH (16:15)
[2017-05-22 17:02] LABS: POTASSIUM 5.1 mmol/L (3.5-5.1)
[2017-05-22 19:37] VITALS: BP 171/89; PULSE 86; TEMP 37.2; O2SAT 99
[2017-05-22] MEDS: MIRTAZAPINE TAB 15 MG TAB PO SCH (21:09)
[2017-05-22 21:23] VITALS: BP 103/68; PULSE 89
[2017-05-22 23:49] VITALS: BP 129/70; PULSE 58; TEMP 37.3; O2SAT 100
[2017-05-23] VITALS (8 sets, daily range): BP systolic 95–206; BP diastolic 59–106; PULSE 71–86; TEMP 36.5–37.3; O2SAT 94–100
[2017-05-23] MEDS: ONDANSETRON INJ 2 MG/ML 2 ML VIAL IV PRN ×3 (08:01→20:50)
[2017-05-23] MEDS: FENTANYL 100 MCG/HR TDSY TD SCH (08:08)
[2017-05-23] MEDS: FENTANYL PATCH REMOVE & WASTE SCH (08:09)
[2017-05-23] MEDS: CHECK FENTANYL PATCH PLACEMENT SCH ×3 (08:09→23:37)
[2017-05-23] MEDS: HEPARIN SOD 5000 UNIT/0.5 ML CARP SQ SCH ×2 (08:13→20:50)
[2017-05-23] MEDS: DULOXETINE (CYMBALTA) 30 MG CAP PO SCH (08:15)
[2017-05-23] MEDS: AMLODIPINE BESYLATE 5 MG TAB PO SCH (08:15)
[2017-05-23] MEDS: METOPROLOL TARTRATE 25 MG TAB PO SCH ×2 (08:16→20:47)
[2017-05-23] MEDS: GABAPENTIN 300 MG CAP PO SCH ×3 (08:17→20:47)
[2017-05-23] MEDS: LEVETIRACETAM 500 MG TAB PO SCH ×2 (08:17→20:46)
[2017-05-23] MEDS: FERROUS SULFATE 325 MG TAB PO SCH ×2 (08:18→20:46)
[2017-05-23] MEDS: OXYCODONE HCL IR 5 MG TAB (IMMEDIATE RELEASE) PO PRN ×4 (08:18→23:40)
[2017-05-23] MEDS: ERYTHROMYCIN DELAYED RELEASE 250 MG CAP PO SCH ×4 (08:19→20:46)
[2017-05-23] MEDS: INSULIN GLARGINE SOLOSTAR 100 UNITS/ML 3 ML PEN SC SCH (08:27)
[2017-05-23 08:31] LABS: CREATININE 1.1 mg/dl (0.60-1.40)
[2017-05-23 08:32] LABS: CALCIUM 8.4 mg/dl (8.5-10.1); POTASSIUM 4.6 mmol/L (3.5-5.1)
[2017-05-23] MEDS: ALBUTEROL HFA 8 GM INHALER INH PRN ×2 (09:06→17:30)
[2017-05-23] MEDS: INSULIN ASPART 100 UNITS/ML 3 ML PEN SC SCH ×4 (09:11→20:50)
[2017-05-23] MEDS ORDERED: MAGNESIUM SULFATE 1GM / D5W 1 GM in PREMIXED IN D5W 100 ML IV ONE (11:15)
[2017-05-23] MEDS ORDERED: FOSAPREPITANT DIMEGLUMINE INJ 150 MG in SODIUM CHLORIDE 0.9% 150ML 145 ML IV ONE (11:15)
[2017-05-23] MEDS: PANTOprazole INJ 40 MG in SYRINGE 0 ML IV SCH (11:43)
--- NOTE | 2017-05-23 18:34 | Progress Note ---
Medicine Progress Note Date & Time of Visit: May 23, 2017 at 18:24. Subjective Pt was seen and examined Pt said that he has been vomiting he refused to to have any change in his diet i went back during dinner to eval patient he was sitting in his bed enjoy a regular meal Pt said that the emend helped with the N/V I called center in [place] for him and they agreed to change his appt for 06/05 @ 9:30AM Pt said that he does not have any ride to go [facility] this afternoon Denies any chest pain, palpitation, dizziness and SOB Objective Last 8 Hrs Date Time Temp Pulse Resp B/P (MAP) Pulse Ox O2 Delivery O2 Flow Rate FiO2 05/23/17 16:00 Room Air 05/23/17 15:41 36.7 71 18 155/81 (105) 94 05/23/17 12:00 Room Air 05/23/17 12:00 37.2 73 16 166/99 (121) 97 Room Air Physical Exam: General- No acute distress Head- atraumatic Eyes- PERRL, EOMI ENT- oropharynx clear Neck- supple, no JVD Lungs- No wheezing Heart- regular rhythm; no murmur Abdomen- normal bowel sounds, soft, Extremities-no calf tenderness Neuro- alert, oriented x 3; PERRL, EOMI Skin- warm & dry Laboratory Results: Last 24 Hours Test 05/22/17 20:14 05/23/17 07:44 05/23/17 07:59 05/23/17 11:27 Bedside Glucose 145 mg/dl 170 mg/dl 245 mg/dl Sodium Level 138 mmol/L Potassium Level 4.6 mmol/L Chloride Level 104 mmol/L Carbon Dioxide Level 27 mmol/L Anion Gap 7.0 mmol/L Blood Urea Nitrogen 9 mg/dl Creatinine 1.10 mg/dl Est Creatinine Clear Calc Drug Dose 76.8 ml/min Estimated GFR () 89.6 Estimated GFR (Non- 77.3 BUN/Creatinine Ratio 8.5 Random Glucose 159 mg/dl Calcium Level 8.4 mg/dl Magnesium Level 1.6 mg/dl Test 05/23/17 16:29 Bedside Glucose 76 mg/dl Assessment & Plan INTRACTABLE NAUSEA AND VOMITING GASTROPARESIS hx gastroparesis has gastric stimulator. N/V seems does not control with Zofran, compazine, Phenergan. GI consulted, recommend Erythromycin q6h PO Emend seems to help will give a dose of emend today scheduled for gastric stimulator adjustment on 07/03/17 with a center in [place], [place] Diet advanced as tolerated 05/23 Emend given today Seems to help with the n/v called center in [place] for him and agreed to changed his appt to an early date for 06/05 @ 9:30 AM for the gastric stimulator Continue monitor electrolytes HYPERKALEMIA Due to IVF with K K 4.6 Stable HYPOMAGNESIA Mg 1.6 Mg replaced starting on mg supplement Continue monitor HYPONATREMIA Na on admission 131 Na 138 today stable HTN BP stable Continue current management Continue monitor BP DM II HA1C: 7.9 on 04/26/17 On novolog sliding scale per protocol, Lantus Continue monitor BS IVAN Cr: 1.4, was 1.3 on 05/08/17. pt with volume depletion Creatine 1.1 today will change IVF to NS Continue IVF Resolved DIABETIC NEUROPATHY Follows with Dr Hope pain management. On fentanyl patch and oxycodone. Hx past intrathecal pump removed secondary to infection continue fentanyl patch, change Q48H, oxycodone, gabapentin SEIZURE DISORDER No recent seizure On levetiracetam and gabapentin HX LUNG CA Adenocarcinoma of lung, s/p resection and chemo followed with Dr Sagar Schofield TOBACCO ABUSE Counseling on tobacco cessation DVT PROPHYLAXIS -heparin SQ DISPOSITION No ride today to discharge him Will discharge tomorrow in am Current Inpatient Medications: Current Inpatient Medications Medications (Trade) Dose Ordered Sig/Cal Route Start Time Stop Time Status Last Admin Dose Admin Acetaminophen (Tylenol Tab) 650 mg Q4H PRN PO 05/15/17 18:00 06/14/17 17:59 05/20/17 23:50 650 MG Magnesium Hydroxide (Milk Of Magnesia Susp) 30 ml Q12H PRN PO 05/15/17 18:00 06/14/17 17:59 Ondansetron HCl (Zofran Inj) 4 mg Q6H PRN IV 05/15/17 18:00 06/14/17 17:59 05/23/17 14:06 4 MG Nitroglycerin (Nitrostat Tab) 0.4 mg UD PRN SL 05/15/17 18:00 06/14/17 17:59 Glucose (Glucose 40% Gel) 15-30 GRAMS 15 GRAMS... UD PRN PO 05/15/17 18:30 06/14/17 18:29 Glucose (Glucose Chew Tab) 4-8 Tablets 4 Tabl... UD PRN PO 05/15/17 18:30 06/14/17 18:29 Dextrose (Dextrose 50% 50ML Syringe) 25-50ML OF 50% DW IV FOR... UD PRN IV 05/15/17 18:30 06/14/17 18:29 Glucagon (Glucagon Inj) 1 mg UD PRN SQ 05/15/17 18:30 06/14/17 18:29 Albuterol (Ventolin Hfa Inhaler) 2 puffs Q6H PRN INH 05/15/17 18:45 06/14/17 18:44 05/23/17 17:30 2 PUFFS Amlodipine Besylate (Norvasc Tab) 5 mg DAILY PO 05/16/17 09:00 06/15/17 08:59 05/23/17 08:15 5 MG Duloxetine HCl (Cymbalta Cap) 30 mg QAM PO 05/16/17 09:00 06/15/17 08:59 05/23/17 08:15 30 MG Fentanyl (Duragesic Patch) 100 mcg Q2D@0700 TD 05/17/17 07:00 05/31/17 06:59 05/23/17 08:08 100 MCG Levetiracetam (Keppra Tab) 1,000 mg BID PO 05/15/17 21:00 06/14/17 20:59 05/23/17 08:17 1,000 MG Mirtazapine (Remeron Tab) 15 mg HS PO 05/15/17 21:00 06/14/17 20:59 05/22/17 21:09 15 MG Ferrous Sulfate (Feosol Tab) 325 mg BID PO 05/16/17 09:00 06/15/17 08:59 05/23/17 08:18 325 MG Heparin Sodium (Porcine) (Heparin Sq 5000 Unit/0.5ml) 5,000 unit Q12 SQ 05/15/17 21:00 06/14/17 20:59 05/23/17 08:13 5,000 UNIT Labetalol HCl (Normodyne IV) 10 mg Q6 PRN IV 05/15/17 19:30 06/14/17 19:29 05/19/17 04:49 10 MG Pantoprazole Sodium 40 mg/ Syringe 10 ml @ 5 mls/min DAILY@11 IV 05/16/17 11:00 06/15/17 10:59 05/23/17 11:43 5 MLS/MIN Oxycodone HCl (Roxicodone Immediate Rel Tab) 10 mg Q4H PRN PO 05/15/17 20:30 06/14/17 18:44 05/23/17 14:06 10 MG Miscellaneous (Fentanyl Patch Remove & Waste) 1 ea Q2D@0659 N/A 05/17/17 06:59 06/16/17 06:58 05/23/17 08:09 1 EA Miscellaneous Information (Check Fentanyl Patch Placement) 1 ea QS N/A 05/16/17 00:00 06/15/17 00:00 05/23/17 16:00 1 EA Miscellaneous Information (Consult Glycemic Management Pharmacy) 1 ea UD N/A 05/16/17 09:10 06/15/17 09:09 Gabapentin (Neurontin Cap) 300 mg TID PO 05/16/17 14:00 06/15/17 13:59 05/23/17 14:02 300 MG Methylnaltrexone [place] (Relistor Inj) 12 mg Q2D@0900 SQ 05/16/17 16:00 06/15/17 15:59 05/22/17 08:48 12 MG Insulin Glargine (Lantus Solostar Pen) 15 units QAM SC 05/17/17 09:00 06/16/17 08:59 05/23/17 08:27 15 UNITS Metoprolol Tartrate (Lopressor Tab) 75 mg BID PO 05/17/17 21:00 06/16/17 20:59 05/23/17 08:16 75 MG Hydralazine HCl (Apresoline Tab) 25 mg BID PO 05/19/17 21:00 06/18/17 20:59 05/23/17 08:14 25 MG Insulin Aspart (novoLOG ASPART) SLIDING SCALE If C... ACHS SC 05/20/17 06:30 06/19/17 06:29 05/23/17 17:15 2 UNITS Erythromycin (Eryc Delayed Rel Cap) 250 mg QID PO 05/21/17 13:00 05/31/17 12:59 05/23/17 17:12 250 MG Magnesium Oxide (Mag-Ox Tab) 400 mg BID PO 05/23/17 21:00 06/22/17 20:59
[2017-05-23] MEDS: MIRTAZAPINE TAB 15 MG TAB PO SCH (20:47)
[2017-05-23] MEDS: MAGNESIUM OXIDE 400 MG TAB PO SCH (20:47)
[2017-05-24 05:16] VITALS: BP 111/62; PULSE 75; TEMP 36.4; O2SAT 97
[2017-05-24] MEDS: OXYCODONE HCL IR 5 MG TAB (IMMEDIATE RELEASE) PO PRN ×4 (06:03→21:36)
[2017-05-24] MEDS: ONDANSETRON INJ 2 MG/ML 2 ML VIAL IV PRN ×2 (06:03→17:29)
[2017-05-24 06:58] LABS: CALCIUM 8.2 mg/dl (8.5-10.1); CREATININE 1.75 mg/dl (0.60-1.40)
[2017-05-24 07:28] VITALS: BP 111/71; PULSE 109; TEMP 36.9; O2SAT 98
[2017-05-24] MEDS ORDERED: MAGNESIUM SULFATE 1GM / D5W 1 GM in PREMIXED IN D5W 100 ML IV ONE (08:00)
[2017-05-24] MEDS: SODIUM CHLORIDE 0.9% 1000ML 1,000 ML IV SCH ×2 (08:15→17:22)
[2017-05-24] MEDS: CHECK FENTANYL PATCH PLACEMENT SCH ×3 (08:16→23:41)
[2017-05-24] MEDS: METHYLNALTREXONE BROMIDE INJ 12 MG/0.6 ML SYR SQ SCH (08:29)
[2017-05-24] MEDS: AMLODIPINE BESYLATE 5 MG TAB PO SCH (08:30)
[2017-05-24] MEDS: METOPROLOL TARTRATE 25 MG TAB PO SCH ×2 (08:31→21:38)
[2017-05-24] MEDS: ERYTHROMYCIN DELAYED RELEASE 250 MG CAP PO SCH ×4 (08:31→21:37)
[2017-05-24] MEDS: MAGNESIUM OXIDE 400 MG TAB PO SCH ×2 (08:32→21:39)
[2017-05-24] MEDS: DULOXETINE (CYMBALTA) 30 MG CAP PO SCH (08:32)
[2017-05-24] MEDS: LEVETIRACETAM 500 MG TAB PO SCH ×2 (08:32→21:37)
[2017-05-24] MEDS: FERROUS SULFATE 325 MG TAB PO SCH ×2 (08:33→21:37)
[2017-05-24] MEDS: GABAPENTIN 300 MG CAP PO SCH ×3 (08:33→21:39)
[2017-05-24] MEDS: INSULIN ASPART 100 UNITS/ML 3 ML PEN SC SCH ×2 (08:41→13:22)
[2017-05-24] MEDS: INSULIN GLARGINE SOLOSTAR 100 UNITS/ML 3 ML PEN SC SCH (08:43)
[2017-05-24] MEDS: HEPARIN SOD 5000 UNIT/0.5 ML CARP SQ SCH ×2 (08:46→21:40)
[2017-05-24] MEDS: ALBUTEROL HFA 8 GM INHALER INH PRN (11:09)
[2017-05-24] MEDS: PANTOprazole INJ 40 MG in SYRINGE 0 ML IV SCH (11:13)
--- NOTE | 2017-05-24 11:42 | Pharmacy Progress Note ---
Glycemic Control Progress Note Date of Service May 24, 2017. Scope Glycemic Pharmacist consulted for glycemic control to write orders per [facility] inpatient glycemic control protocol. Objective Accuchecks BSG (last 24hrs): Test 05/23/17 16:29 05/23/17 19:01 05/23/17 19:52 05/24/17 06:15 Bedside Glucose 76 mg/dl (70-99) 110 mg/dl (70-99) 81 mg/dl (70-99) Random Glucose 211 mg/dl (70-99) Test 05/24/17 07:15 Bedside Glucose 200 mg/dl (70-99) HbA1c: 7.9% 04/26/17 Recent Pertinent Medications The patient is currently receiving: * Basal insulin: Lantus 15 units SQ Q AM * Correctional Insulin: Novolog Correction per scale ACHS Goal Range: Low 110 mg/dL - High 150 mg/dL Correction Factor: 30 mg/dL/unit * Prandial insulin: Per carb ratio of 1 unit per 12 grams CHO consumed * Oral Agents: None currently Outpatient Anti-Diabetic Meds Lantus 15 units SQ Q PM Humalog per sliding scale Assessment & Plan ASSESSMENT: 05/24/17 * BSGs acceptable for this patient over the last 24 hours * Fasting BSG elevated this AM (FBS 200) however this elevation is explainable as he had been snacking overnight. His overnight snacking has led to hyperglycemia in the AMs on several occasions in the last week. * BSGs had been running < 100 the second half of the day yesterday, however this was explainable also as he received a larger dose of Novolog than needed to cover the carbs eaten at lunch. * Will continue the current CF and CR for now. We do know from prior admissions that he can become hypoglycemic with a carb ratio less than 12 PLAN FOR INPATIENT GLYCEMIC CONTROL: * Continue Lantus 15 units SQ Q AM * Continuing correction factor of 30 mg/dl/unit * Continuing carb ratio of 1 unit per 12 grams CHO consumed * Continuing goal range of Low 110 mg/dL - High 150 mg/dL * Please note that the plan above was derived based on current level of insulin resistance and hospital stress. These recommendations are appropriate for inpatient admission only. Plan of care upon discharge will need to be reassessed to avoid potential outpatient hypo/hyperglycemia. Thank you.
[2017-05-24 11:54] VITALS: BP 87/42; PULSE 78; TEMP 37.1; O2SAT 97
[2017-05-24 15:23] LABS: CALCIUM 8.5 mg/dl (8.5-10.1); CREATININE 1.88 mg/dl (0.60-1.40); POTASSIUM 5.2 mmol/L (3.5-5.1)
[2017-05-24 16:05] VITALS: BP 160/87; PULSE 93; TEMP 37.5; O2SAT 96
--- NOTE | 2017-05-24 16:31 | Progress Note ---
Medicine Progress Note Date & Time of Visit: May 24, 2017 at 10:03. Subjective Pt was seen and examined Sitting in bed with no distress Pt said that he continues to vomit He said that he is starting to have diarrhea Pt has been ambulated in the hallway. Denies any chest pain, palpitation, dizziness and SOB Objective Last 8 Hrs Date Time Temp Pulse Resp B/P (MAP) Pulse Ox O2 Delivery O2 Flow Rate FiO2 05/24/17 12:00 Room Air 05/24/17 11:54 37.1 78 20 87/42 (57) 97 Physical Exam: General- No acute distress Head- atraumatic Eyes- PERRL, EOMI ENT- oropharynx clear Neck- supple, no JVD Lungs- No wheezing Heart- regular rhythm; no murmur Abdomen- normal bowel sounds, soft, Extremities-no calf tenderness Neuro- alert, oriented x 3; PERRL, EOMI Skin- warm & dry Laboratory Results: Last 24 Hours Test 05/23/17 16:29 05/23/17 19:01 05/23/17 19:52 05/24/17 06:15 Bedside Glucose 76 mg/dl 110 mg/dl 81 mg/dl Sodium Level 136 mmol/L Potassium Level 5.0 mmol/L Chloride Level 103 mmol/L Carbon Dioxide Level 28 mmol/L Anion Gap 5.0 mmol/L Blood Urea Nitrogen 10 mg/dl Creatinine 1.75 mg/dl Est Creatinine Clear Calc Drug Dose 48.3 ml/min Estimated GFR () 51.1 Estimated GFR (Non- 44.1 BUN/Creatinine Ratio 5.9 Random Glucose 211 mg/dl Calcium Level 8.2 mg/dl Magnesium Level 1.7 mg/dl Test 05/24/17 07:15 05/24/17 12:05 05/24/17 14:43 Bedside Glucose 200 mg/dl 155 mg/dl Sodium Level 140 mmol/L Potassium Level 5.2 mmol/L Chloride Level 108 mmol/L Carbon Dioxide Level 27 mmol/L Anion Gap 5.0 mmol/L Blood Urea Nitrogen 11 mg/dl Creatinine 1.88 mg/dl Est Creatinine Clear Calc Drug Dose 45.0 ml/min Estimated GFR () 46.9 Estimated GFR (Non- 40.4 BUN/Creatinine Ratio 6.0 Random Glucose 45 mg/dl Calcium Level 8.5 mg/dl Assessment & Plan INTRACTABLE NAUSEA AND VOMITING GASTROPARESIS hx gastroparesis has gastric stimulator. N/V seems does not control with Zofran, compazine, Phenergan. GI consulted, recommend Erythromycin q6h PO Emend seems to help will give a dose of emend today scheduled for gastric stimulator adjustment on 07/03/17 with a center in [place], [place] Diet advanced as tolerated 05/24 Emend given yesterday Seems to help with the n/v called center in [place] for him and agreed to changed his appt to an early date for 06/05 @ 9:30 AM for the gastric stimulator Continue monitor BMP HYPERKALEMIA Due to IVF with K K 5.2 Continue monitor will put on low K diet HYPOMAGNESIA Mg 1.7 Mg replaced Continue mg supplement Continue monitor HYPONATREMIA Na on admission 131 Na 140 today stable HTN BP stable Continue current management Continue monitor BP DM II HA1C: 7.9 on 04/26/17 On novolog sliding scale per protocol, Lantus Continue monitor BS DIARRHEA Possible related with relistor and magnesium supplement just adding D/c relistor Monitor Electrolytes IVAN Related to diarrhea and vomiting Cr: 1.4, was 1.3 on 05/08/17. pt with volume depletion Creatine worsening today to 1.8 Continue IVF Monitor BMP DIABETIC NEUROPATHY Follows with Dr Hope pain management. On fentanyl patch and oxycodone. Hx past intrathecal pump removed secondary to infection continue fentanyl patch, change Q48H, oxycodone, gabapentin SEIZURE DISORDER No recent seizure On levetiracetam and gabapentin HX LUNG CA Adenocarcinoma of lung, s/p resection and chemo followed with Dr Keith Stable TOBACCO ABUSE Counseling on tobacco cessation DVT PROPHYLAXIS -heparin SQ DISPOSITION No ride today to discharge him Will discharge tomorrow in am Current Inpatient Medications: Current Inpatient Medications Medications (Trade) Dose Ordered Sig/Cal Route Start Time Stop Time Status Last Admin Dose Admin Acetaminophen (Tylenol Tab) 650 mg Q4H PRN PO 05/15/17 18:00 06/14/17 17:59 05/20/17 23:50 650 MG Magnesium Hydroxide (Milk Of Magnesia Susp) 30 ml Q12H PRN PO 05/15/17 18:00 06/14/17 17:59 Ondansetron HCl (Zofran Inj) 4 mg Q6H PRN IV 05/15/17 18:00 06/14/17 17:59 05/24/17 06:03 4 MG Nitroglycerin (Nitrostat Tab) 0.4 mg UD PRN SL 05/15/17 18:00 06/14/17 17:59 Glucose (Glucose 40% Gel) 15-30 GRAMS 15 GRAMS... UD PRN PO 05/15/17 18:30 06/14/17 18:29 Glucose (Glucose Chew Tab) 4-8 Tablets 4 Tabl... UD PRN PO 05/15/17 18:30 06/14/17 18:29 05/24/17 15:33 4 TABS Dextrose (Dextrose 50% 50ML Syringe) 25-50ML OF 50% DW IV FOR... UD PRN IV 05/15/17 18:30 06/14/17 18:29 Glucagon (Glucagon Inj) 1 mg UD PRN SQ 05/15/17 18:30 06/14/17 18:29 Albuterol (Ventolin Hfa Inhaler) 2 puffs Q6H PRN INH 05/15/17 18:45 06/14/17 18:44 05/24/17 11:09 2 PUFFS Amlodipine Besylate (Norvasc Tab) 5 mg DAILY PO 05/16/17 09:00 06/15/17 08:59 05/24/17 08:30 5 MG Duloxetine HCl (Cymbalta Cap) 30 mg QAM PO 05/16/17 09:00 06/15/17 08:59 05/24/17 08:32 30 MG Fentanyl (Duragesic Patch) 100 mcg Q2D@0700 TD 05/17/17 07:00 05/31/17 06:59 05/23/17 08:08 100 MCG Levetiracetam (Keppra Tab) 1,000 mg BID PO 05/15/17 21:00 06/14/17 20:59 05/24/17 08:32 1,000 MG Mirtazapine (Remeron Tab) 15 mg HS PO 05/15/17 21:00 06/14/17 20:59 05/23/17 20:47 15 MG Ferrous Sulfate (Feosol Tab) 325 mg BID PO 05/16/17 09:00 06/15/17 08:59 05/24/17 08:33 325 MG Heparin Sodium (Porcine) (Heparin Sq 5000 Unit/0.5ml) 5,000 unit Q12 SQ 05/15/17 21:00 06/14/17 20:59 05/24/17 08:46 5,000 UNIT Labetalol HCl (Normodyne IV) 10 mg Q6 PRN IV 05/15/17 19:30 06/14/17 19:29 05/19/17 04:49 10 MG Pantoprazole Sodium 40 mg/ Syringe 10 ml @ 5 mls/min DAILY@11 IV 05/16/17 11:00 06/15/17 10:59 05/24/17 11:13 5 MLS/MIN Oxycodone HCl (Roxicodone Immediate Rel Tab) 10 mg Q4H PRN PO 05/15/17 20:30 06/14/17 18:44 05/24/17 11:12 10 MG Miscellaneous (Fentanyl Patch Remove & Waste) 1 ea Q2D@0659 N/A 05/17/17 06:59 06/16/17 06:58 05/23/17 08:09 1 EA Miscellaneous Information (Check Fentanyl Patch Placement) 1 ea QS N/A 05/16/17 00:00 06/15/17 00:00 05/24/17 08:16 1 EA Miscellaneous Information (Consult Glycemic Management Pharmacy) 1 ea UD N/A 05/16/17 09:10 06/15/17 09:09 Gabapentin (Neurontin Cap) 300 mg TID PO 05/16/17 14:00 06/15/17 13:59 05/24/17 13:23 300 MG Methylnaltrexone [place] (Relistor Inj) 12 mg Q2D@0900 SQ 05/16/17 16:00 06/15/17 15:59 05/24/17 08:29 12 MG Insulin Glargine (Lantus Solostar Pen) 15 units QAM SC 05/17/17 09:00 06/16/17 08:59 05/24/17 08:43 15 UNITS Metoprolol Tartrate (Lopressor Tab) 75 mg BID PO 05/17/17 21:00 06/16/17 20:59 05/24/17 08:31 75 MG Hydralazine HCl (Apresoline Tab) 25 mg BID PO 05/19/17 21:00 06/18/17 20:59 05/24/17 08:31 25 MG Insulin Aspart (novoLOG ASPART) SLIDING SCALE If C... ACHS SC 05/20/17 06:30 06/19/17 06:29 05/24/17 13:22 7 UNITS Erythromycin (Eryc Delayed Rel Cap) 250 mg QID PO 05/21/17 13:00 05/31/17 12:59 05/24/17 13:23 250 MG Magnesium Oxide (Mag-Ox Tab) 400 mg BID PO 05/23/17 21:00 06/22/17 20:59 05/24/17 08:32 400 MG Sodium Chloride 1,000 ml @ 125 mls/hr Q8H IV 05/24/17 08:00 06/23/17 07:59 05/24/17 08:15 125 MLS/HR
[2017-05-24] MEDS ORDERED: NURSING VERBAL MED ORDER ONE (17:15)
[2017-05-24 20:00] VITALS: BP 144/79; PULSE 86; TEMP 37.1; O2SAT 95
[2017-05-24] MEDS: MIRTAZAPINE TAB 15 MG TAB PO SCH (21:39)
[2017-05-24 22:53] VITALS: BP 122/61; PULSE 91; TEMP 37.1; O2SAT 96
[2017-05-25 02:38] VITALS: BP 112/66; PULSE 81; TEMP 37; O2SAT 95
[2017-05-25] MEDS: ONDANSETRON INJ 2 MG/ML 2 ML VIAL IV PRN ×2 (02:44→08:30)
[2017-05-25] MEDS: SODIUM CHLORIDE 0.9% 1000ML 1,000 ML IV SCH ×2 (02:44→11:53)
[2017-05-25] MEDS: OXYCODONE HCL IR 5 MG TAB (IMMEDIATE RELEASE) PO PRN ×3 (02:44→13:46)
[2017-05-25] MEDS: FENTANYL 100 MCG/HR TDSY TD SCH (07:09)
[2017-05-25] MEDS: FENTANYL PATCH REMOVE & WASTE SCH (07:10)
[2017-05-25] MEDS: INSULIN ASPART 100 UNITS/ML 3 ML PEN SC SCH ×2 (07:11→11:39)
[2017-05-25] MEDS: CHECK FENTANYL PATCH PLACEMENT SCH (07:11)
[2017-05-25 07:40] VITALS: O2SAT 97
[2017-05-25 07:41] VITALS: BP 146/78; PULSE 84; TEMP 37; O2SAT 97
[2017-05-25] MEDS: METOPROLOL TARTRATE 25 MG TAB PO SCH (08:07)
[2017-05-25] MEDS: FERROUS SULFATE 325 MG TAB PO SCH (08:07)
[2017-05-25] MEDS: ERYTHROMYCIN DELAYED RELEASE 250 MG CAP PO SCH ×2 (08:07→13:43)
[2017-05-25] MEDS: GABAPENTIN 300 MG CAP PO SCH ×2 (08:07→13:57)
[2017-05-25] MEDS: LEVETIRACETAM 500 MG TAB PO SCH (08:07)
[2017-05-25] MEDS: MAGNESIUM OXIDE 400 MG TAB PO SCH (08:07)
[2017-05-25] MEDS: HEPARIN SOD 5000 UNIT/0.5 ML CARP SQ SCH (08:12)
--- NOTE | 2017-05-25 08:32 | Pharmacy Progress Note ---
Glycemic Control Progress Note Date of Service May 25, 2017. Scope Glycemic Pharmacist consulted for glycemic control to write orders per [facility] inpatient glycemic control protocol. Objective Accuchecks BSG (last 24hrs): Test 05/24/17 12:05 05/24/17 14:43 05/24/17 15:28 05/24/17 15:51 Bedside Glucose 155 mg/dl (70-99) 52 mg/dl (70-99) 43 mg/dl (70-99) Random Glucose 45 mg/dl (70-99) Test 05/24/17 16:20 05/24/17 20:03 05/25/17 07:05 Bedside Glucose 133 mg/dl (70-99) 145 mg/dl (70-99) 162 mg/dl (70-99) HbA1c: 7.9% 04/26/17 Recent Pertinent Medications The patient is currently receiving: * Basal insulin: Lantus 15 units SQ Q AM * Correctional Insulin: Novolog Correction per scale ACHS (CURRENTLY ON HOLD) Goal Range: Low 110 mg/dL - High 150 mg/dL Correction Factor: 30 mg/dL/unit (CURRENTLY ON HOLD) * Prandial insulin: Per carb ratio of 1 unit per 12 grams CHO consumed ( CURRENTLY ON HOLD) * Oral Agents: None currently Outpatient Anti-Diabetic Meds Lantus 15 units SQ Q PM Humalog per sliding scale Assessment & Plan ASSESSMENT: 05/24/17 * BSGs acceptable for this patient over the last 24 hours * Fasting BSG elevated this AM (FBS 200) however this elevation is explainable as he had been snacking overnight. His overnight snacking has led to hyperglycemia in the AMs on several occasions in the last week. * BSGs had been running < 100 the second half of the day yesterday, however this was explainable also as he received a larger dose of Novolog than needed to cover the carbs eaten at lunch. * Will continue the current CF and CR for now. We do know from prior admissions that he can become hypoglycemic with a carb ratio less than 12 05/25/17 * Patient experience hypoglycemia between lunch and dinner yesterday - likely due to Novolog administration following by episode of vomiting around lunch time. Patient had also snacked overnight, leading to fasting AM hyperglycemia - which was corrected with Novolog per CF rather than covering carbs only. * Novolog was held for the remainder of the day yesterday per hospitalist's order. * Will resume Novolog today, however use only for correction rather than carb coverage until we confirm nausea/vomiting has resolved * Will also reduce Lantus dose very slightly given uncertain PO intake today PLAN FOR INPATIENT GLYCEMIC CONTROL: * Decrease Lantus to 14 units SQ Q AM * Continuing correction factor of 30 mg/dl/unit * Remove carb ratio until pt's nausea/vomiting resolves * Changing goal range to Low 120 mg/dL - High 150 mg/dL * Please note that the plan above was derived based on current level of insulin resistance and hospital stress. These recommendations are appropriate for inpatient admission only. Plan of care upon discharge will need to be reassessed to avoid potential outpatient hypo/hyperglycemia. Thank you.
[2017-05-25] MEDS ORDERED: INSULIN GLARGINE SOLOSTAR 100 UNITS/ML 3 ML PEN SC SCH (09:00)
[2017-05-25] MEDS: AMLODIPINE BESYLATE 5 MG TAB PO SCH (09:10)
[2017-05-25] MEDS: DULOXETINE (CYMBALTA) 30 MG CAP PO SCH (09:10)
[2017-05-25 09:22] LABS: CALCIUM 8.2 mg/dl (8.5-10.1); CREATININE 1.34 mg/dl (0.60-1.40); POTASSIUM 5.1 mmol/L (3.5-5.1)
--- NOTE | 2017-05-25 11:03 | Pharmacy Progress Note ---
Pharmacy Glycemic Sign Off Nt Date of Service May 25, 2017. Assessment & Plan ASSESSMENT: * Pharmacy was consulted by Dr Car on 05/16/17 for glycemic control and to write orders per [facility] inpatient glycemic control protocol. * Hospitalist resumed glycemic control ordering yesterday afternoon following hypoglycemic episode. Will defer all future orders to hospitalist service should confusion arise as to what insulin doses are adjusted and administered by RN. PLAN FOR INPATIENT GLYCEMIC CONTROL: * Reduce basal insulin to Lantus 14 units SQ Q HS * Continue NovoLog per scale ACHS/ * Goal range = 120 150 mg/dl * CF = 30 mg/dl/unit (correctional insulin should be given when BSGs are elevated, even if patient is not eating) * hold CR coverage until patient's nausea/vomiting resolved, then resume CR of 1 unit per 13gm CHO * Pharmacy is signing off of glycemic consult and will no longer be making adjustments to inpatient regimen. Please feel free to re-consult if needed. Thank you.
[2017-05-25] MEDS: PANTOprazole INJ 40 MG in SYRINGE 0 ML IV SCH (11:36)
--- NOTE | 2017-05-25 11:53 | Progress Note ---
Medicine Progress Note Date & Time of Visit: May 25, 2017 at 11:36. Subjective Pt was seen and examined Lying in bed with no distress Pt said that he has not been vomiting for today She said that his nausea improves Diarrhea improves significantly Denies any chest pain, palpitation, dizziness and sob Objective Last 8 Hrs Date Time Temp Pulse Resp B/P (MAP) Pulse Ox O2 Delivery O2 Flow Rate FiO2 05/25/17 10:20 37.0 84 20 97 Room Air 05/25/17 07:41 37.0 84 20 146/78 (100) 97 05/25/17 07:40 97 Room Air 05/25/17 04:00 Room Air Physical Exam: General- No acute distress Head- atraumatic Eyes- PERRL, EOMI ENT- oropharynx clear Neck- supple, no JVD Lungs- No wheezing Heart- regular rhythm; no murmur Abdomen- normal bowel sounds, soft, Extremities-no calf tenderness Neuro- alert, oriented x 3; PERRL, EOMI Skin- warm & dry Laboratory Results: Last 24 Hours Test 05/24/17 12:05 05/24/17 14:43 05/24/17 15:28 05/24/17 15:51 Bedside Glucose 155 mg/dl 52 mg/dl 43 mg/dl Sodium Level 140 mmol/L Potassium Level 5.2 mmol/L Chloride Level 108 mmol/L Carbon Dioxide Level 27 mmol/L Anion Gap 5.0 mmol/L Blood Urea Nitrogen 11 mg/dl Creatinine 1.88 mg/dl Est Creatinine Clear Calc Drug Dose 45.0 ml/min Estimated GFR () 46.9 Estimated GFR (Non- 40.4 BUN/Creatinine Ratio 6.0 Random Glucose 45 mg/dl Calcium Level 8.5 mg/dl Test 05/24/17 16:20 05/24/17 20:03 05/25/17 07:05 05/25/17 08:32 Bedside Glucose 133 mg/dl 145 mg/dl 162 mg/dl Sodium Level 139 mmol/L Potassium Level 5.1 mmol/L Chloride Level 107 mmol/L Carbon Dioxide Level 25 mmol/L Anion Gap 7.0 mmol/L Blood Urea Nitrogen 12 mg/dl Creatinine 1.34 mg/dl Est Creatinine Clear Calc Drug Dose 69.0 ml/min Estimated GFR () 70.6 Estimated GFR (Non- 60.9 BUN/Creatinine Ratio 8.7 Random Glucose 183 mg/dl Calcium Level 8.2 mg/dl Magnesium Level 1.8 mg/dl Test 05/25/17 11:06 Bedside Glucose 201 mg/dl Assessment & Plan INTRACTABLE NAUSEA AND VOMITING GASTROPARESIS hx gastroparesis has gastric stimulator. N/V seems does not control with Zofran, compazine, Phenergan. GI consulted, recommend Erythromycin q6h PO Emend seems to help will give a dose of emend today scheduled for gastric stimulator adjustment on 07/03/17 with a center in [place], [place] Diet advanced as tolerated 05/25 Will try to give a dose of emend today Tolerated diet has not had any vomiting today called center in [place], [place] for him and agreed to changed his appt to an early date for 06/05 @ 9:30 AM for the gastric stimulator Continue monitor BMP HYPERKALEMIA Due to IVF with K K 5.1 Continue monitor will put on low K diet HYPOMAGNESIA Mg 1.8 Mg replaced Continue mg supplement Continue monitor HYPONATREMIA Na on admission 131 Na 139 today stable HTN BP stable Continue current management Continue monitor BP DM II HA1C: 7.9 on 04/26/17 On novolog sliding scale per protocol Lantus resumed Continue monitor BS DIARRHEA Possible related with relistor and magnesium supplement just adding D/c Relistor Diarrhea improved significantly Monitor Electrolytes IVAN Related to diarrhea and vomiting Cr: 1.4, was 1.3 on 05/08/17. pt with volume depletion Creatine improved today from 1.8 to 1.3 Continue IVF Monitor BMP DIABETIC NEUROPATHY Follows with Dr Hope pain management. On fentanyl patch and oxycodone. Hx past intrathecal pump removed secondary to infection continue fentanyl patch, change Q48H, oxycodone, gabapentin SEIZURE DISORDER No recent seizure On levetiracetam and gabapentin HX LUNG CA Adenocarcinoma of lung, s/p resection and chemo followed with Dr Sagar Schofield TOBACCO ABUSE Counseling on tobacco cessation DVT PROPHYLAXIS -heparin SQ DISPOSITION Will discharge home today Current Inpatient Medications: Current Inpatient Medications Medications (Trade) Dose Ordered Sig/Cal Route Start Time Stop Time Status Last Admin Dose Admin Acetaminophen (Tylenol Tab) 650 mg Q4H PRN PO 05/15/17 18:00 06/14/17 17:59 05/20/17 23:50 650 MG Magnesium Hydroxide (Milk Of Magnesia Susp) 30 ml Q12H PRN PO 05/15/17 18:00 06/14/17 17:59 Ondansetron HCl (Zofran Inj) 4 mg Q6H PRN IV 05/15/17 18:00 06/14/17 17:59 05/25/17 08:30 4 MG Nitroglycerin (Nitrostat Tab) 0.4 mg UD PRN SL 05/15/17 18:00 06/14/17 17:59 Glucose (Glucose 40% Gel) 15-30 GRAMS 15 GRAMS... UD PRN PO 05/15/17 18:30 06/14/17 18:29 Glucose (Glucose Chew Tab) 4-8 Tablets 4 Tabl... UD PRN PO 05/15/17 18:30 06/14/17 18:29 05/24/17 15:33 4 TABS Dextrose (Dextrose 50% 50ML Syringe) 25-50ML OF 50% DW IV FOR... UD PRN IV 05/15/17 18:30 06/14/17 18:29 05/24/17 16:03 50 ML Glucagon (Glucagon Inj) 1 mg UD PRN SQ 05/15/17 18:30 06/14/17 18:29 Albuterol (Ventolin Hfa Inhaler) 2 puffs Q6H PRN INH 05/15/17 18:45 06/14/17 18:44 05/24/17 11:09 2 PUFFS Amlodipine Besylate (Norvasc Tab) 5 mg DAILY PO 05/16/17 09:00 06/15/17 08:59 05/25/17 09:10 5 MG Duloxetine HCl (Cymbalta Cap) 30 mg QAM PO 05/16/17 09:00 06/15/17 08:59 05/25/17 09:10 30 MG Fentanyl (Duragesic Patch) 100 mcg Q2D@0700 TD 05/17/17 07:00 05/31/17 06:59 05/25/17 07:09 100 MCG Levetiracetam (Keppra Tab) 1,000 mg BID PO 05/15/17 21:00 06/14/17 20:59 05/25/17 08:07 1,000 MG Mirtazapine (Remeron Tab) 15 mg HS PO 05/15/17 21:00 06/14/17 20:59 05/24/17 21:39 15 MG Ferrous Sulfate (Feosol Tab) 325 mg BID PO 05/16/17 09:00 06/15/17 08:59 05/25/17 08:07 325 MG Heparin Sodium (Porcine) (Heparin Sq 5000 Unit/0.5ml) 5,000 unit Q12 SQ 05/15/17 21:00 06/14/17 20:59 05/25/17 08:12 5,000 UNIT Labetalol HCl (Normodyne IV) 10 mg Q6 PRN IV 05/15/17 19:30 06/14/17 19:29 05/19/17 04:49 10 MG Pantoprazole Sodium 40 mg/ Syringe 10 ml @ 5 mls/min DAILY@11 IV 05/16/17 11:00 06/15/17 10:59 05/24/17 11:13 5 MLS/MIN Oxycodone HCl (Roxicodone Immediate Rel Tab) 10 mg Q4H PRN PO 05/15/17 20:30 06/14/17 18:44 05/25/17 08:30 10 MG Miscellaneous (Fentanyl Patch Remove & Waste) 1 ea Q2D@0659 N/A 05/17/17 06:59 06/16/17 06:58 05/25/17 07:10 1 EA Miscellaneous Information (Check Fentanyl Patch Placement) 1 ea QS N/A 05/16/17 00:00 06/15/17 00:00 05/25/17 07:11 1 EA Gabapentin (Neurontin Cap) 300 mg TID PO 05/16/17 14:00 06/15/17 13:59 05/25/17 08:07 300 MG Metoprolol Tartrate (Lopressor Tab) 75 mg BID PO 05/17/17 21:00 06/16/17 20:59 05/25/17 08:07 75 MG Hydralazine HCl (Apresoline Tab) 25 mg BID PO 05/19/17 21:00 06/18/17 20:59 05/25/17 08:07 25 MG Insulin Aspart (novoLOG ASPART) SLIDING SCALE If C... ACHS SC 05/20/17 06:30 06/19/17 06:29 Future hold 05/24/17 13:22 7 UNITS Erythromycin (Eryc Delayed Rel Cap) 250 mg QID PO 05/21/17 13:00 05/31/17 12:59 05/25/17 08:07 250 MG Magnesium Oxide (Mag-Ox Tab) 400 mg BID PO 05/23/17 21:00 06/22/17 20:59 05/25/17 08:07 400 MG Sodium Chloride 1,000 ml @ 100 mls/hr Q10H IV 05/24/17 08:00 06/23/17 07:59 05/25/17 02:44 100 MLS/HR Insulin Glargine (Lantus Solostar Pen) 14 units QAM SC 05/25/17 09:00 06/24/17 08:59 05/25/17 08:12 14 UNITS
[2017-05-25 12:01] VITALS: BP 134/79; PULSE 80; TEMP 36.6; O2SAT 96
[2017-05-25] MEDS ORDERED: ERYC250 PO (12:02)
[2017-05-25] MEDS ORDERED: MGNO400 PO (12:02)
[2017-05-25] MEDS ORDERED: APR25 PO (12:02)
[2017-05-25 12:08] VITALS: O2SAT 96
--- NOTE | 2017-05-25 12:21 | Discharge Instructions ---
Discharge Instructions Date of Service May 25, 2017. Admission Reason for Admission: Hypomagnesmia, Intractable Nausea And Vomiting Discharge Discharge Diagnosis / Problem: INTRACTABLE NAUSEA AND VOMITING, GASTROPARESIS, Electrolytes imbalance Discharge Goals Goal(s): Decrease discomfort, Improve function, Improve disease control Activity Recommendations Activity Limitations: resume your previous activity (as tolerated) . Instructions / Follow-Up Instructions / Follow-Up Follow up appointment with PCP Dr. Burgess on 05/29 @ 2:15 pm at the [facility] Follow up appointment with gastric stimulator on 06/05 @ 9:30 am in [place], [place] Check BMP and magnesium within 1 week to monitor electrolytes and kidney function Fall precaution Keep yourself hydrate Follow up a gastroparesis diet Do not drive or operate any machine while on narcotic Monitor Blood pressure Continue monitor blood sugar Current Hospital Diet Patient's current hospital diet: AHA Diet (Heart Healthy), Diabetes Type 2 Diet , Low Fiber Diet Discharge Diet Recommended Diet: Regular Diet, Diabetes Type 2 Diet, Low Fiber Diet Pending Studies Studies pending at discharge: no Laboratory Results Hemoglobin A1c Test 04/26/17 05:48 Range/Units Estimated Average Glucose 180 mg/dl Hemoglobin A1c 7.9 H 4.5-5.6 % Medical Emergencies . Who to Call and When: Medical Emergencies: If at any time you feel your situation is an emergency, please call 911 immediately. . Non-Emergent Contact Non-Emergency issues call your: Primary Care Provider Call Non-Emergent contact if: your pain is not controlled, you have any medication questions . . "Provider Documentation" section prepared by Shira Pavon. . VTE Core Measure Inpt VTE Proph given/why not?: Unfractionated heparin SQ
--- NOTE | 2017-05-27 00:38 | Discharge Summary ---
Discharge Summary Date of Service May 27, 2017. Discharge Summary Admission Date: May 15, 2017 at 18:05 Discharge Date: May 25, 2017 Discharge Disposition: Home Principal Diagnosis: INTRACTABLE NAUSEA AND VOMITING GASTROPARESIS Secondary Diagnoses/Problems: Electrolytes imbalance IVAN HTN DIABETIC NEUROPATHY Seizure disorder Hx Lung CA TOBACCO ABUSE Diabetes Diarrhea Procedures: KUB CLINICAL HISTORY: Dominant distention COMPARISON STUDY: 02/11/2017 FINDINGS: There is no pathologic bowel dilatation. There is a presumed gastric stimulator. There are surgical clips within the right upper quadrant consistent with a prior cholecystectomy. IMPRESSION: No evidence of pathologic bowel dilatation. Electronically signed by: Bruce Salamnaca M.D. 05/16/2017 9:02 AM Dictated Date/Time: 05/16/2017 9:01 AM CHEST ONE VIEW PORTABLE CLINICAL HISTORY: Abdominal pain. COMPARISON STUDY: Chest CT April 25, 2017 and chest radiograph May 12, 2017. FINDINGS: There are stable postoperative findings within the left thorax with left lung volume loss. Hazy left suprahilar opacity likely reflects postsurgical change. This is unchanged. Blunting of the left costophrenic angle is unchanged. No evidence for pulmonary edema. There is no consolidation to suggest pneumonia. Cardiomediastinal silhouette is normal. There is no lucency under the hemidiaphragms to indicate pneumoperitoneum on this exam. IMPRESSION: No acute cardiopulmonary findings. No change in appearance of the chest with stable postoperative findings within the left hemithorax. Electronically signed by: Bryce Perez M.D. 05/15/2017 4:24 PM Dictated Date/Time: 05/15/2017 4:22 PM Medication Reconciliation New Medications: Erythromycin (Erythromycin) 250 Mg Cap 250 MG PO QID for 7 Days, #28 CAP Hydralazine Hcl (Apresoline) 25 Mg Tab 25 MG PO BID for 30 Days, #60 TAB Magnesium Oxide (Magnesium-Oxide) 400 Mg Tab 400 MG PO BID for 30 Days, #60 TAB Continued Medications: Acetaminophen (Tylenol) 500 Mg Tab 1000 MG PO Q6H PRN for Pain, TAB Albuterol Hfa (Ventolin Hfa) 200 Puffs/41052 Mcg Aers 2 PUFFS INH Q6H PRN for Wheezing Amlodipine (Norvasc) 5 Mg Tab 5 MG PO DAILY, TAB Diphenoxylate/Atropine (Diphenoxylate/Atropine 2.5-0.025 mg) 1 Tab Tab 1 TAB PO BID PRN for Diarrhea for 7 Days, #14 TAB Docusate Sodium (Docusate Sodium) 100 Mg Cap 200 MG PO DAILY PRN for Constipation Duloxetine HCl (Duloxetine HCl) 30 Mg Cap 30 MG PO QAM for 30 Days, #30 CAP 2 Refills Epinephrine (Epipen) 0.3 Mg/0.3 Ml Inj 0.3 MG IM UD PRN for ALLERGIC REACTION Fentanyl (Fentanyl) 100 Mcg Tdsy 100 MCG TOP Q2D Ferrous Sulfate (Kp Ferrous Sulfate) 325 Mg Tab 325 MG PO BID, TAB 3 Refills Gabapentin (Gabapentin) 300 Mg Cap 300 MG PO TID, CAP Insulin Glargine (Lantus Solostar) 100 Unit/Ml Inj 15 UNITS SQ QPM, PEN Insulin Lispro (Human) (Humalog) 100 Unit/Ml Inj 0 SQ UD SLIDING SCALE Levetiracetam (Keppra) 500 Mg Tab 1000 MG PO BID for 30 Days, #120 TAB 1 Refill Lisinopril (Lisinopril) 40 Mg Tab 40 MG PO DAILY, TAB Metoprolol Tartrate (Lopressor) (Lopressor) 25 Mg Tab 75 MG PO BID, TAB Mirtazapine (Mirtazapine) 15 Mg Tab 15 MG PO HS Multiple Vitamin (Multivitamins) 1 Cap Cap 1 CAP PO QAM Omeprazole (Prilosec) 20 Mg Cap 20 MG PO DAILY, CAP Ondansetron (Ondansetron HCl) 4 Mg Tab 8 MG PO Q8 PRN for Nausea Oxycodone Hcl (Oxycodone Hcl) 10 Mg Tab 1 TAB PO Q4H PRN for Pain Prochlorperazine Maleate (Compazine) 10 Mg Tab 10 MG PO Q6H PRN for Nausea or Vomiting, TAB Discontinued Medications: Hydrochlorothiazide (Hydrochlorothiazide) 12.5 Mg Tab 12.5 MG PO DAILY Admission Information HPI (per Admitting provider): Pt is 51 y/o M with PMH DM, neuropathy, gastroparesis with gastric stimulator placed 1 year ago at [facility], HTN, Lung CA s/p resection and chemo presented to ER with c/o N/V. Pt hx hospitalization [facility] beginning of April 2017 for N/V, gastroparesis and pt reports hallucinations from Reglan and was d/c home with Zofran and Phenergan without much relief. Pt admitted here 12/21/17-05/08/17 for N/V/D, gastroparesis. He states since d/c has continued loose stools a couple of times a day. Tried lomotil without much relief. He taking zofran and compazine without much relief. Reports was vomiting a couple of times a day until past couple of days with greater than 10 episodes vomiting a day and unable to eat and drink. Pt reports chronic epigastric discomfort. Reports BS 118 this am. He states is scheduled to f/u for his gastric stimulator 07/03/17 in [place]. Denies fever/chills, diaphoresis, hematemesis, melena, hematochezia, VALDEZ, syncope, vision changes, neck pain, CP, SOB, orthopnea, palpitations, cough, sore throat, choking, otalgia, rhinorrhea, extremity edema, rashes, urinary symptoms. Seen in ER afebrile. BP: 168/98, P: 110-95, 100% on RA, R: 20. Na 131 (133 corrected), K: 3.4, Cr: 1.4 (1.3 on 05/08/17). Gluc: 226, lactic acid: 1.4, Ma.3. given zofran, NSS 1L, pepcid 20 IV, emend 150mg IV, oxycodone 10mg. Physical Exam (per Admitting): General Appearance: + pertinent finding (chronically ill appearing, resting in bed ) Head: normocephalic, atraumatic Eyes: normal inspection, PERRL, EOMI, sclerae normal ENT: hearing grossly normal, pharynx normal, + pertinent finding Neck: supple, no JVD, trachea midline Respiratory/Chest: chest non-tender, lungs clear, normal breath sounds, no respiratory distress Cardiovascular: regular rate, rhythm, no edema, normal peripheral pulses Abdomen/GI: normal bowel sounds, soft, + tenderness (epigastric without rebound or guarding) Back: no CVA tenderness Extremities/Musculoskelatal: normal inspection, normal capillary refill, no pedal edema, normal range of motion, non-tender Neurologic/Psych: alert, normal mood/affect, oriented x 3 Skin: normal color, warm/dry Hospital Course INTRACTABLE NAUSEA AND VOMITING GASTROPARESIS hx gastroparesis has gastric stimulator. N/V seems does not control with Zofran, compazine, Phenergan. GI consulted, recommend Erythromycin q6h PO Emend seems to help will give a dose of emend today scheduled for gastric stimulator adjustment on 07/03/17 with a center in [place], [place] Diet advanced as tolerated 05/25 Will try to give a dose of emend today Tolerated diet has not had any vomiting today called center in [place], [place] for him and agreed to changed his appt to an early date for 06/05 @ 9:30 AM for the gastric stimulator Continue monitor BMP HYPERKALEMIA Due to IVF with K K 5.1 Continue monitor will put on low K diet HYPOMAGNESIA Mg 1.8 Mg replaced Continue mg supplement Continue monitor HYPONATREMIA Na on admission 131 Na 139 today stable HTN BP stable Continue current management Continue monitor BP DM II HA1C: 7.9 on 04/26/17 On novolog sliding scale per protocol Lantus resumed Continue monitor BS DIARRHEA Possible related with relistor and magnesium supplement just adding D/c Relistor Diarrhea improved significantly Monitor Electrolytes IVAN Related to diarrhea and vomiting Cr: 1.4, was 1.3 on 05/08/17. pt with volume depletion Creatine improved today from 1.8 to 1.3 Continue IVF Monitor BMP DIABETIC NEUROPATHY Follows with Dr Hope pain management. On fentanyl patch and oxycodone. Hx past intrathecal pump removed secondary to infection continue fentanyl patch, change Q48H, oxycodone, gabapentin SEIZURE DISORDER No recent seizure On levetiracetam and gabapentin HX LUNG CA Adenocarcinoma of lung, s/p resection and chemo followed with Dr Sagar Schofield TOBACCO ABUSE Counseling on tobacco cessation DVT PROPHYLAXIS -heparin SQ DISPOSITION Will discharge home today Total time spent on discharge = 35minutes This includes examination of the patient, discharge planning, medication reconciliation, and communication with other providers. Discharge Instructions Discharge Instructions Date of Service May 25, 2017. Admission Reason for Admission: Hypomagnesmia, Intractable Nausea And Vomiting Discharge Discharge Diagnosis / Problem: INTRACTABLE NAUSEA AND VOMITING, GASTROPARESIS, Electrolytes imbalance Activity Recommendations Activity Limitations: resume your previous activity (as tolerated) . Instructions / Follow-Up Instructions / Follow-Up Follow up appointment with PCP Dr. Burgess on 05/29 @ 2:15 pm at the [facility] Follow up appointment with gastric stimulator on 06/05 @ 9:30 am in [place], [place] Check BMP and magnesium within 1 week to monitor electrolytes and kidney function Fall precaution Keep yourself hydrate Follow up a gastroparesis diet Do not drive or operate any machine while on narcotic Monitor Blood pressure Continue monitor blood sugar Current Hospital Diet Patient's current hospital diet: AHA Diet (Heart Healthy), Diabetes Type 2 Diet , Low Fiber Diet Discharge Diet Recommended Diet: Regular Diet, Diabetes Type 2 Diet, Low Fiber Diet Pending Studies Studies pending at discharge: no Laboratory Results Hemoglobin A1c Test 04/26/17 05:48 Range/Units Estimated Average Glucose 180 mg/dl Hemoglobin A1c 7.9 H 4.5-5.6 % Medical Emergencies . Who to Call and When: Medical Emergencies: If at any time you feel your situation is an emergency, please call 911 immediately. . Non-Emergent Contact Non-Emergency issues call your: Primary Care Provider Call Non-Emergent contact if: your pain is not controlled, you have any medication questions . . "Provider Documentation" section prepared by Shira Pavon. . VTE Core Measure Inpt VTE Proph given/why not?: Unfractionated heparin SQ Additional Copies To Bran Burgess M.D.
== END 2017-05-25 14:10 | disposition home or self-care (01) | DRG 74 ==
LOC: C.EDB 15:10 → C.MED 18:05 → ENRESERV 18:17
PROVIDERS: ADMIT Internal Medicine; ATTEND Internal Medicine
DX: E11.43 Type 2 diabetes mellitus with diabetic autonomic (poly)neuropathy (principal); E87.1 Hypo-osmolality and hyponatremia; K52.1 Toxic gastroenteritis and colitis; T47.4X5A Adverse effect of other laxatives, initial encounter; T50.7X5A Adverse effect of analeptics and opioid receptor antagonists, initial encounter; K31.84 Gastroparesis; T40.605A Adverse effect of unspecified narcotics, initial encounter; E83.42 Hypomagnesemia; E87.6 Hypokalemia; E87.5 Hyperkalemia; T50.3X5A Adverse effect of electrolytic, caloric and water-balance agents, initial encounter; E11.42 Type 2 diabetes mellitus with diabetic polyneuropathy; I10 Essential (primary) hypertension; G40.909 Epilepsy, unspecified, not intractable, without status epilepticus; F17.200 Nicotine dependence, unspecified, uncomplicated; Z51.81 Encounter for therapeutic drug level monitoring; Z79.899 Other long term (current) drug therapy; Z79.4 Long term (current) use of insulin; Z79.891 Long term (current) use of opiate analgesic; Z96.89 Presence of other specified functional implants; Z85.118 Personal history of other malignant neoplasm of bronchus and lung; Z92.21 Personal history of antineoplastic chemotherapy; Z83.3 Family history of diabetes mellitus; Z80.51 Family history of malignant neoplasm of kidney

== ENCOUNTER → 2017-11-22 | Outpatient (CLI) | payer OTHER ==
[~2017-11-22] MED LIST changes: -AMLO-110 PO; +AMLO5TAB3 PO; +APR25 PO; -CHOL1TAB63 PO; +ERYC250 PO; +GABA-1219 PO; -GABA1CAP4 PO; -HYDR12.55 PO; +LISI40TA3 PO; -LSN40 PO; +MGNO400 PO; +PROC10TA PO; -PROC1TAB5 PO
--- NOTE | 2017-11-22 09:05 | DIAGNOSTIC IMAGING REPORT ---
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 TECHNIQUE: Multidetector CT imaging of the chest was performed without the use of intravenous contrast. IV contrast: None. A dose lowering technique was used consistent with the principles of ALARA (as low as reasonably achievable). COMPARISON: 04/25/2017. CT DOSE (mGy.cm): The estimated cumulative dose is 413.41 mGycm. FINDINGS: Physical Security Specialist topogram: 2 stimulator leads project over the epigastrium. Cholecystectomy clips noted. On soft tissue windows, multiple subcentimeter nodules in the right thyroid lobe. These are unchanged. Mild nonspecific body wall edema No axillary, supraclavicular, or mediastinal lymphadenopathy. Evaluation of the laura limited without intravenous contrast. Normal aorta. Normal heart size. Coronary artery calcification. Trace left pleural effusion persists. No pericardial effusion. 2 stimulator leads project over the gastric body. Cholecystectomy clips noted. Normal liver density. 1.8 cm macroscopic fat-containing right adrenal lesion compatible with myelolipoma. This is unchanged. On lung windows, postsurgical changes of left upper lobectomy. No recurrent soft tissue at the left upper lobe bronchus ligation site. No focal infiltrate or nodule apart from few punctate subpleural solid nodules in the anterior right upper lobe, fissural right middle lobe, and basilar right lower lobe (series 4 images 150, 154, 155, 211). These are unchanged. Few additional punctate scattered nodules are unchanged. Central airways patent. On bone windows, degenerative changes of the spine. IMPRESSION: 1. Postsurgical changes of left upper lobectomy. No evidence of recurrent intrathoracic disease. 2. Stable punctate solid nodules, which are likely benign. 3. No acute intrathoracic pathology. 4. Additional chronic findings as above. Electronically signed by: Ronnell Renee M.D. 11/22/2017 9:04 AM Dictated Date/Time: 11/22/2017 8:58 AM
== END | disposition home or self-care (01) ==
LOC: C.CTS 08:42
PROVIDERS: ATTEND Internal Medicine Hematology
DX: C34.12 Malignant neoplasm of upper lobe, left bronchus or lung (principal)

== ENCOUNTER 2018-05-05 19:59 | Inpatient (IN) ==
[2018-05-05] MEDS ORDERED: SODIUM CHLORIDE 0.9% 1000ML 1,000 ML IV ONE (20:56)
[2018-05-05 21:10] LABS: Basophils # (auto) 0.05 K/uL (0-0.2); Basophils % (auto) 0.7 %; Eosinophils % (auto) 1.3 %; Hematocrit (blood only) 31.4 % (42-52); Hemoglobin 10.8 g/dL (14.0-18.0); Immature Granulocytes # (auto) 0.03 K/uL (0.00-0.02); Immature Granulocytes % (auto) 0.4 %; Lymphocytes # (auto) 1.06 K/uL (1.2-3.4); Lymphocytes % (auto) 13.8 %; Mean Corpuscular Hgb Conc 34.4 g/dL (32-36); Mean Corpuscular Volume 84.6 fL (80-100); Mean Platelet Volume 10.7 fL (7.4-10.4); Monocytes # (auto) 0.99 K/uL (0.11-0.59); Monocytes % (auto) 12.9 %; Neutrophils # (auto) 5.45 K/uL (1.4-6.5); Neutrophils % (auto) 70.9 %; Platelet Count 230 K/uL (130-400); RDW Coefficient of Variation 13.6 % (11.5-14.5); RDW Standard Deviation 41.4 fL (36.4-46.3); Red Blood Count 3.71 M/uL (4.7-6.1); White Blood Count 7.68 K/uL (4.8-10.8)
[2018-05-05 21:21] LABS: INR 1.1 (0.9-1.1); Partial Thromboplastin Ratio 0.9; Partial Thromboplastin Time 23.9 Seconds (21.0-31.0); Prothrombin Time 10.7 Seconds (9.0-12.0)
--- NOTE | 2018-05-05 21:26 | XRay Report ---
XR chest 1V portable CLINICAL HISTORY: 52 years-old Male presenting with Sepsis. TECHNIQUE: Portable upright AP view of the chest was obtained. COMPARISON: 05/15/[address] from 11/22/2017. FINDINGS: Cardiomediastinal silhouette normal. Lungs and pleural spaces clear. Osseous structures normal. Upper abdomen normal. IMPRESSION: 1. No acute cardiopulmonary disease. Electronically signed by: Ronnell Renee M.D. 05/05/2018 9:23 PM
[2018-05-05 21:37] LABS: Alanine Aminotransferase 18 U/L (12-78); Albumin Globulin Ratio 0.8 (0.9-2); Albumin Level 3.4 gm/dl (3.4-5.0); Alkaline Phosphatase 89 U/L (45-117); BUN Creatinine Ratio 13.6 (10-20); Bilirubin,Total 0.4 mg/dl (0.2-1); Blood Urea Nitrogen 46 mg/dl (7-18); Calcium 8.4 mg/dl (8.5-10.1); Carbon Dioxide 26 mmol/L (21-32); Chloride 93 mmol/L (98-107); Creatinine Clr Calc Pharmacy 24.8 ml/min; Est GFR (Non-African American) 19.8; Globulin 4.4 gm/dl (2.5-4.0); Glucose 432 mg/dl (70-99); NT Pro B Type Natriuretic Pept 590 pg/ml (0-900); Sodium 128 mmol/L (136-145); Total Protein 7.8 gm/dl (6.4-8.2); Troponin I < 0.015 ng/ml (0-0.045)
--- NOTE | 2018-05-05 22:35 | Emergency Department Note ---
History of Present Illness General Chief Complaint: Shortness of Breath/Dyspnea Time Seen by Provider: 05/05/18 23:05 Source: patient Mode of arrival: ambulatory Limitations: no limitations History of Present Illness Provider Complaint: shortness of breath and chest pain Onset (ago): hour(s) (1) Severity: severe Consistency/Duration: + constant Maximum Pain Intensity: 7 Current Pain Intensity: 7 Relieved By: + oxygen and + cool air Exacerbated By: + movement Context: + recent illness Known history of: diabetes Associated symptoms: + fever, + cough, + nausea/vomiting and + abdominal pain Treatment prior to arrival: oxygen This 52-year-old male patient presents emergency department today, via EMS, complaining of chest pain, dyspnea, nausea, vomiting, and fevers. The patient states the nausea, vomiting, fevers, chills, and sweats have been ongoing for approximately 1 week. This evening, the patient was walking around [facility] at first night. After approximately 10-minute walk he went into a holiness. He began experiencing chest pressure and difficulty catching his breath. The patient states he stood up and went downstairs and vomited. He states his breathing continued to get worse and he ultimately decided to contact 911. He states that one point he did stick his head outside and noticed that the cold air seemed to help with the breathing a little bit. The patient was brought to the ED today via ambulance. The patient reports chest pressure just to the left of center in his chest. He states EMS told him his oxygen saturation was in the 70s so applied oxygen. 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 He has not experienced dyspnea like this. Patient does report a history of CKD stage III. He does report a history of proximally 1 month ago, he had a spider bite of his left index finger. This ultimately needed to be operated on, and he states within the past month, he had surgery in [place] by hand specialist. He did notice some increasing redness, swelling, and purulent drainage coming from the incision site. He reports maximum fever of 102.6 �F. He has been having difficulty taking his medications this week due to nausea and vomiting. He does have a history of gastroparesis and states he has a gastric pacemaker. Related Data Home oxygen amount: none Home Medications Home Medications Medication Instructions Recorded Confirmed Type acetaminophen [Acetaminophen Extra 1,000 mg PO Q6H PRN 12/31/18 12/31/18 History Strength] albuterol sulfate 2 puff INHALATION Q4H PRN 05/05/18 05/05/18 History amlodipine 5 mg PO DAILY 05/05/18 05/05/18 History aspirin [Aspirin Low Dose] 81 mg PO DAILY 05/05/18 05/05/18 History epinephrine [EpiPen] 0.3 mg IM Q3H PRN 05/05/18 05/05/18 History fentanyl 1 patch TOPICAL Q2D 05/05/18 05/05/18 History ferrous sulfate 325 mg PO DAILY 05/05/18 05/05/18 History gabapentin 300 mg PO TID 05/05/18 05/05/18 History insulin glargine [Basaglar KwikPen 15 unit SUBCUT HS 05/05/18 05/05/18 History U-100 Insulin] insulin lispro [Humalog U-100 1 sliding scale dose SUBCUT UD 05/05/18 05/05/18 History Insulin] levetiracetam [Keppra] 500 mg PO BID 05/05/18 05/05/18 History lisinopril 40 mg PO DAILY 05/05/18 05/05/18 History magnesium oxide 400 mg PO BID 05/05/18 05/05/18 History metoprolol tartrate 25 mg PO BID 05/05/18 05/05/18 History multivitamin 1 tab PO DAILY 05/05/18 05/05/18 History ondansetron HCl 8 mg PO Q8H PRN 05/05/18 05/05/18 History oxycodone 10 mg PO Q4H 05/05/18 05/05/18 History pantoprazole 40 mg PO DAILY 05/05/18 05/05/18 History polyethylene glycol 3350 [Miralax] 17 g PO DAILY 05/05/18 05/05/18 History prochlorperazine maleate 10 mg PO Q6H PRN 05/05/18 05/05/18 History trimethobenzamide 300 mg PO TID 05/05/18 05/05/18 History Allergies Allergy/AdvReac Type Severity Reaction Status Date / Time bee venom protein (honey bee) Allergy Mild SWELLING Verified 05/05/18 21:24 AT SITE, SOB Penicillins Allergy Unknown "SINCE Unverified 05/05/18 21:24 "-Amoxicillin metoclopramide AdvReac Unknown hallucinati Verified 05/05/18 21:24 ons Past Med/Surg History Medical History Gastroparesis (Chronic) "s/p gastric stimulator" Hypertension (Chronic) Lung cancer (Chronic) "dx 01/2016; adenoCa SHAWN; + hilar nodes; s/p left upper lobectomy + chemo" On 08/05/16 16:31 Edie Mcfarland wrote "dx 01/2016; s/p L side lobectomy; currently undergoing chemo" Diabetic peripheral neuropathy (Chronic) Diabetic autonomic neuropathy (Chronic) Chronic pain (Chronic) Diabetes mellitus type 2, uncontrolled (Acute) Hypomagnesemia Surgical History History of cholecystectomy (Chronic) History of tonsillectomy and adenoidectomy (Chronic) Hx of total knee arthroplasty (Chronic) S/P lobectomy of lung (Chronic) "left upper lobectomy for adenoCa" On 08/05/16 16:30 Edie Mcfarland wrote "L side @ [facility] 05/25/16" H/O esophagogastroduodenoscopy (Chronic) "01/26/2015- LA Grade B reflux esophagitis, gastritis; Dr. Major" H/O colonoscopy (Chronic) " 04/22/2013- Mildly congested and erythematous mucosa in the ascending colon. One 1 mm polyp in the ascending colon resected. One benign appearing 1 mm polyp in the rectum resected. Internal hemorrhoids; Dr. Demarco" Social History Feels Safe at Home: Yes Smoking Status: Never smoker Review of Systems A total of 10 systems reviewed and were otherwise negative Physical Exam 2 Vital Signs: Vital Signs - 24 hr 05/05/18 20:10 05/05/18 20:14 05/05/18 20:15 Temperature 36.7 C Temperature Source Oral Sepsis Recent Feve r Within 48 Hours Yes Sepsis New/Unexpla ined Change in Men radha Status No Sepsis Action Take n by Nursing No Action Required Pulse Rate 90 82 91 H Respiratory Rate 21 22 14 Respiratory Effort / Characteristics SOB on Exertion Respiratory Depth Normal Blood Pressure 89/65 L 89/67 L Blood Pressure Rebecca n 73 74 Pulse Oximetry 97 96 95 Oxygen Delivery Me thod Room Air 05/05/18 20:30 05/05/18 20:35 05/05/18 20:45 Temperature Temperature Source Sepsis Recent Feve r Within 48 Hours Sepsis New/Unexpla ined Change in Men radha Status Sepsis Action Take n by Nursing Pulse Rate 87 87 89 Respiratory Rate 12 19 15 Respiratory Effort / Characteristics Respiratory Depth Blood Pressure 91/59 L Blood Pressure Rebecca n 69 Pulse Oximetry 98 98 98 Oxygen Delivery Me thod 05/05/18 21:00 05/05/18 21:15 05/05/18 21:30 Temperature Temperature Source Sepsis Recent Feve r Within 48 Hours Sepsis New/Unexpla ined Change in Men radha Status Sepsis Action Take n by Nursing Pulse Rate 84 83 80 Respiratory Rate 15 13 22 Respiratory Effort / Characteristics Respiratory Depth Blood Pressure Blood Pressure Rebecca n Pulse Oximetry 94 97 96 Oxygen Delivery Me thod 05/05/18 21:45 05/05/18 22:00 Temperature Temperature Source Sepsis Recent Feve r Within 48 Hours Sepsis New/Unexpla ined Change in Men radha Status Sepsis Action Take n by Nursing Pulse Rate 79 79 Respiratory Rate 16 21 Respiratory Effort / Characteristics Respiratory Depth Blood Pressure Blood Pressure Rebecca n Pulse Oximetry 97 99 Oxygen Delivery Me thod Physical Exam: VITALS: Vitals are noted on the nurse's note and reviewed by myself. The patient is hypotensive. GENERAL: This is a 52-year-old white male, in no acute distress, nondiaphoretic , well-developed well-nourished. SKIN: There is a scar on the left index finger which is erythematous with no active drainage at this time. There is edema associated with the scar of the finger. There is tenderness to palpation. The skin was otherwise without rashes, erythema, edema, or bruising. There is no tenting of the skin. Capillary reflex less than 2 seconds. HEAD: Normocephalic atraumatic. EARS: External auditory canals clear, tympanic membranes pearly acosta without erythema or effusion bilaterally. EYES: Pupils equal round and reactive to light and accommodation. Conjunctivae without injection, sclerae without icterus. Extraocular movements intact. NOSE: Patent, turbinates without inflammation or discharge. No sinus tenderness. MOUTH: Mucous membranes moist. Tonsils are not enlarged. Pharynx without erythema or exudate. Uvula midline. Airway patent. Tongue does not deviate. NECK: Supple without nuchal rigidity. No lymphadenopathy. No thyromegaly. Cervical spine is nontender. No JVD. CHEST: Tenderness to the left anterior chest wall on palpation. The patient states this is consistent with the pain he was experiencing earlier. HEART: Regular rate and rhythm without murmurs gallops or rubs. LUNGS: Clear to auscultation bilaterally without wheezes, rales or rhonchi. No dullness to percussion. No retractions or accessory muscle use. ABDOMEN: Positive bowel sounds x 4. Normal tympanic percussion. Soft, nontender, without masses or organomegaly. Jerez sign negative. No guarding or rebound tenderness. MUSCULOSKELETAL: No muscle atrophy, erythema, or edema noted. Full range of motion without joint tenderness in all extremities. Tenderness of the spine, which the patient states is chronic. No tenderness to palpation except as noted. Normal gait. Strength 5/5 throughout. NEURO: Patient was alert and oriented to person place and time. Normal sensation to light and sharp touch. Deep tendon reflexes 2+ throughout. No focal neurological deficits. Course The patient was seen and evaluated as above. IV access obtained, labs drawn. The patient was given 1L NSS. Imaging performed and reviewed by myself and radiologist as above. Labs reviewed by myself. I discussed the findings with the patient at bedside. I discussed the case with my attending. I spoke with the porter sample case regarding admission. I spoke with Dr. Saenz regarding admission for hyponatremia, chest pain, dyspnea, and possible sepsis. Please see his dictation regarding ongoing management and care. Administered Medications Discontinued Medications Sodium Chloride (Nss 1000ml) 1,000 mls @ 999 mls/hr IV .Q1H1M ONE Stop: 05/05/18 21:56 Last Infusion: 05/05/18 22:21 Dose: 0 mls/hr Admin: 05/05/18 21:20 Dose: 999 mls/hr Medical Decision Making Differential Diagnosis + acute exacerbation of chronic obstructive airways disease, + congestive heart failure, + community acquired pneumonia, + asthma with exacerbation, + pulmonary embolism, + COPD, + bronchitis, + pneumothorax, + pneumonia, + pleural effusion, + CHF, + ACS and + aspiration Etiologies such as viral syndrome, otitis, pharyngitis, pneumonia, urinary tract infection, sepsis, bacteremia, meningitis, as well as others were entertained. Medical Records Attestation: I reviewed the patient's medical records. Home Medications Current Medication List: was personally reviewed by me Laboratory Data Attestation: I reviewed the patient's lab results. No leukocytosis, thrombocytopenia. Anemia with a hemoglobin of 10.8 and hematocrit of 31.4. Coags without significant abnormality. D-dimer elevated at 740. The patient is hyponatremic with sodium of 128. And concern for possible acute kidney injury, as I do not know the patient's baseline creatinine. Creatinine is elevated at 3.37 with BUN of 46. The patient is hyperglycemic at 432. LFTs without significant abnormality. Initial troponin negative. BNP negative. Influenza testing negative. Beta hydroxybutyric acid normal at 2.36. Lactic acid normal 1.4. Result diagrams: 05/05/18 20:28 05/05/18 22:11 Lab Results 05/05/18 05/05/18 05/05/18 Range/Units 20:28 20:28 20:28 WBC 7.68 (4.8-10.8) K/uL RBC 3.71 L (4.7-6.1) M/uL Hgb 10.8 L (14.0-18.0) g/dL Hct 31.4 L (42-52) % MCV 84.6 (80-100) fL MCH 29.1 (25-34) pg MCHC 34.4 (32-36) g/dL RDW Std Deviation 41.4 (36.4-46.3) fL RDW Coeff of Rik 13.6 (11.5-14.5) % Plt Count 230 (130-400) K/uL MPV 10.7 H (7.4-10.4) fL Immature Gran % (Auto) 0.4 % Neut % (Auto) 70.9 % Lymph % (Auto) 13.8 % Power % (Auto) 12.9 % Eos % (Auto) 1.3 % Baso % (Auto) 0.7 % Immature Gran # (Auto) 0.03 H (0.00-0.02) K/uL Neut # (Auto) 5.45 (1.4-6.5) K/uL Lymph # (Auto) 1.06 L (1.2-3.4) K/uL Power # (Auto) 0.99 H (0.11-0.59) K/uL Eos # (Auto) 0.10 (0-0.5) K/uL Baso # (Auto) 0.05 (0-0.2) K/uL PT 10.7 (9.0-12.0) Seconds INR 1.1 (0.9-1.1) APTT 23.9 (21.0-31.0) Seconds PTT Ratio 0.9 D-Dimer 740 H* (0-500) ug/L FEU Sodium 128 L (136-145) mmol/L Potassium (3.5-5.1) mmol/L Chloride 93 L (98-107) mmol/L Carbon Dioxide 26 (21-32) mmol/L Anion Gap 10.0 (3-11) BUN 46 H (7-18) mg/dl Creatinine 3.37 H (0.6-1.4) mg/dl Est Cr Clr Drug Dosing 24.8 ml/min Est GFR ( Amer) 23.0 Est GFR (Non-Af Amer) 19.8 BUN/Creatinine Ratio 13.6 (10-20) Glucose 432 H* (70-99) mg/dl Lactate (0.4-2.0) mmol/L Calcium 8.4 L (8.5-10.1) mg/dl Total Bilirubin 0.4 (0.2-1) mg/dl AST (15-37) U/L ALT 18 (12-78) U/L Alkaline Phosphatase 89 (45-117) U/L Troponin I < 0.015 (0-0.045) ng/ml NT-Pro-B Natriuret Pep 590 (0-900) pg/ml Total Protein 7.8 (6.4-8.2) gm/dl Albumin 3.4 (3.4-5.0) gm/dl Globulin 4.4 H (2.5-4.0) gm/dl Albumin/Globulin Ratio 0.8 L (0.9-2) Beta-Hydroxybutyric Acd (0.2-2.81) mg/dl Influenza Type A Ag (Neg) Influenza Type B Ag (Neg) 12/31/18 12/31/18 12/31/18 Range/Units 21:15 22:09 22:11 WBC (4.8-10.8) K/uL RBC (4.7-6.1) M/uL Hgb (14.0-18.0) g/dL Hct (42-52) % MCV (80-100) fL MCH (25-34) pg MCHC (32-36) g/dL RDW Std Deviation (36.4-46.3) fL RDW Coeff of Rik (11.5-14.5) % Plt Count (130-400) K/uL MPV (7.4-10.4) fL Immature Gran % (Auto) % Neut % (Auto) % Lymph % (Auto) % Power % (Auto) % Eos % (Auto) % Baso % (Auto) % Immature Gran # (Auto) (0.00-0.02) K/uL Neut # (Auto) (1.4-6.5) K/uL Lymph # (Auto) (1.2-3.4) K/uL Power # (Auto) (0.11-0.59) K/uL Eos # (Auto) (0-0.5) K/uL Baso # (Auto) (0-0.2) K/uL PT (9.0-12.0) Seconds INR (0.9-1.1) APTT (21.0-31.0) Seconds PTT Ratio D-Dimer (0-500) ug/L FEU Sodium (136-145) mmol/L Potassium 4.0 (3.5-5.1) mmol/L Chloride (98-107) mmol/L Carbon Dioxide (21-32) mmol/L Anion Gap (3-11) BUN (7-18) mg/dl Creatinine (0.6-1.4) mg/dl Est Cr Clr Drug Dosing ml/min Est GFR ( Amer) Est GFR (Non-Af Amer) BUN/Creatinine Ratio (10-20) Glucose (70-99) mg/dl Lactate 1.4 (0.4-2.0) mmol/L Calcium (8.5-10.1) mg/dl Total Bilirubin (0.2-1) mg/dl AST 8 L (15-37) U/L ALT (12-78) U/L Alkaline Phosphatase (45-117) U/L Troponin I (0-0.045) ng/ml NT-Pro-B Natriuret Pep (0-900) pg/ml Total Protein (6.4-8.2) gm/dl Albumin (3.4-5.0) gm/dl Globulin (2.5-4.0) gm/dl Albumin/Globulin Ratio (0.9-2) Beta-Hydroxybutyric Acd 2.36 (0.2-2.81) mg/dl Influenza Type A Ag Neg for Influ A (Neg) Influenza Type B Ag Neg for Influ B (Neg) Imaging Data Radiologist's Impression: XR chest 1V portable CLINICAL HISTORY: 52 years-old Male presenting with Sepsis. TECHNIQUE: Portable upright AP view of the chest was obtained. COMPARISON: 05/15/[address] from 11/22/2017. FINDINGS: Cardiomediastinal silhouette normal. Lungs and pleural spaces clear. Osseous structures normal. Upper abdomen normal. IMPRESSION: 1. No acute cardiopulmonary disease. Electronically signed by: Ronnell Renee M.D. 05/05/2018 9:23 PM ECG Data Interpretation: EKG is not ideal due to gastric pacemaker. EKG does show a normal sinus rhythm with a ventricular rate of 88. No acute ischemic findings. No ST elevation. No significant change when compared to prior EKG. Blood Pressure Blood Pressure Findings: Low blood pressure MDM Narrative This 52 year old male patient presents to the emergency department today with complaints of chest pain, dyspnea, and reports being ill earlier this week with nausea, vomiting, fever. Symptoms are concerning for primarily acute coronary syndrome, sepsis, pneumonia, or other infectious process. Workup here in the ED shows that the patient is hyponatremic. He has an elevated d-dimer, however due to the elevated creatinine and BUN, I do not feel comfortable performing a CTA of the chest at this time. The patient has been comfortable in the ED, still complaining of chest pressure, but otherwise without significant dyspnea. He has been maintaining an O2 saturation in the high 90s on room air. There is no tachycardia or tachypnea. The patient will be admitted to the [facility] medicine service for further evaluation and monitoring of his symptoms and management of the hyponatremia as well as for concern of infection/sepsis related to the spider bite. The chart was completed utilizing [employer] voice recognition software. Grammatical errors, random word insertions, pronoun errors, and incomplete sentences are an occasional consequence of this system due to software limitations, ambient noise, and hardware issues. Any formal questions or concerns about the content, text, or information contained within the body of this dictation should be directly addressed to the provider for clarification. Impression & Plan Acute hyponatremia, Chest pain, Acute dyspnea Discharge Plan Visit Data Chief Complaint: Shortness of Breath/Dyspnea ED Provider: Jack Toney ED Midlevel Provider: Ekaterina Perez Discharge Problem: Acute hyponatremia, Chest pain, Acute dyspnea Patient Disposition: Still a Patient Forms Stand Alone Forms: My [facility] Prescriptions Prescriptions: No Action multivitamin Tablet 1 tab PO DAILY RF: 0 levetiracetam [Keppra] 500 mg Tablet 500 mg PO BID RF: 0 ondansetron HCl 8 mg Tablet 8 mg PO Q8H PRN (Reason: Nausea) RF: 0 amlodipine 5 mg Tablet 5 mg PO DAILY RF: 0 prochlorperazine maleate 10 mg Tablet 10 mg PO Q6H PRN (Reason: Acid Reflux) RF: 0 aspirin [Aspirin Low Dose] 81 mg Tablet,Delayed Release (Dr/Ec) 81 mg PO DAILY RF: 0 acetaminophen [Acetaminophen Extra Strength] 500 mg Tablet 1,000 mg PO Q6H PRN (Reason: Pain) RF: 0 fentanyl 100 mcg/hr patch 72 hour 1 patch topical Q2D RF: 0 pantoprazole 40 mg tablet,delayed release (DR/EC) 40 mg PO DAILY RF: 0 ferrous sulfate 325 mg (65 mg iron) Tablet 325 mg PO DAILY RF: 0 gabapentin 300 mg Capsule 300 mg PO TID RF: 0 epinephrine [EpiPen] 0.3 mg/0.3 mL Auto-Injector 0.3 mg IM Q3H PRN (Reason: Allergic Reaction) RF: 0 polyethylene glycol 3350 [Miralax] 17 gram/dose Powder 17 g PO DAILY RF: 0 albuterol sulfate 90 mcg/actuation Hfa Aerosol Inhaler 2 puff INHALATION Q4H PRN (Reason: Shortness Of Breath) RF: 0 lisinopril 40 mg Tablet 40 mg PO DAILY RF: 0 trimethobenzamide 300 mg Capsule 300 mg PO TID PRN (Reason: Nausea And Vomiting) RF: 0 insulin lispro [Humalog U-100 Insulin] 100 unit/mL Cartridge 1 sliding scale dose SUBCUT UD RF: 0 metoprolol tartrate 25 mg Tablet 75 mg PO BID RF: 0 insulin glargine [Basaglar KwikPen U-100 Insulin] 100 unit/mL (3 mL) Insulin Pen 15 unit SUBCUT HS RF: 0 oxycodone 10 mg Tablet 10 mg PO Q4H RF: 0 magnesium oxide 400 mg magnesium Tablet 400 mg PO BID RF: 0 Referrals Referrals: PCP,NO [Primary Care Provider] -
[2018-05-05] MEDS ORDERED: NovoLIN-R INSULIN PER UNIT CHARGE IV STA (23:26)
[2018-05-06] MEDS ORDERED: NITROGLYCERIN SL 0.4 MG/TAB TAB SL PRN (00:38)
[2018-05-06] MEDS ORDERED: ALBUTEROL HFA 8 GM INHALER INH PRN (00:38)
[2018-05-06] MEDS ORDERED: PROCHLORPERAZINE MALEATE 10 MG TAB PO PRN (00:38)
[2018-05-06] MEDS ORDERED: ACETAMINOPHEN 325 MG TAB PO PRN (00:38)
[2018-05-06] MEDS ORDERED: SODIUM CHLORIDE 0.9% 1000ML 1,000 ML IV SCH (00:38)
[2018-05-06] MEDS ORDERED: EPINEPHRINE ADULT AUTO-INJECT 0.3 MG SYR IM PRN (00:38)
[2018-05-06] MEDS ORDERED: ONDANSETRON INJ 2 MG/ML 2 ML VIAL ONE (01:32)
[2018-05-06] MEDS ORDERED: INSULIN GLARGINE SOLOSTAR 100 UNITS/ML 3 ML PEN SQ STA (01:39)
[2018-05-06] MEDS ORDERED: GLUCOSE 40% GEL 15 GM TUBE PO PRN (01:40)
[2018-05-06] MEDS ORDERED: GLUCOSE 10 TABS/TUBE PO PRN (01:40)
[2018-05-06] MEDS ORDERED: GLUCAGON FOR INJ 1 MG VIAL IM PRN (01:40)
[2018-05-06] MEDS ORDERED: CARBOHYDRATES FOR HYPOGLYCEMIA PO PRN (01:40)
[2018-05-06] MEDS ORDERED: DEXTROSE 50% 50 ML SYRINGE IV PRN (01:40)
--- NOTE | 2018-05-06 02:44 | History and Physical Report ---
DATE OF ADMISSION: 05/05/2018 CHIEF COMPLAINT: Chest pain, shortness of breath. HISTORY OF PRESENT ILLNESS: This is a 52-year-old male with past medical history significant for diabetes, autoimmune dysfunction,, diabetic gastroparesis, status post gastric pacemaker, history of intrathecal pump for neuropathy, but it is taken out secondary to infection, on chronic pain medications, history of pancreatitis, gastritis, hypertension, history of malignant neoplasm of upper lobe of the left lung, adenocarcinoma, status post resection, status post chemo and supposed to get a follow up CAT scan in June of this year, no longer on any chemo, neurogenic bladder, neuropathy, history of seizure disorder. The patient chronically has nausea, vomiting from his gastroparesis. Most of times, patient says he brings the pills out. He was in [place] today, he had his dinner and was walking on the road, 13 minutes into walk they went into gnosticism then suddenly he had chest pain, severe in nature with radiation to back,and he had to double down and was feeling short of breath and had nausea, and 1 episode of vomiting. When the EMS came, he was saturating at 70%. They placed him on oxygen and brought him here. Currently, the patient's initial workup is negative and currently patient is hemodynamically stable,and he is talking fine without oxygen on. He says he still has some mild chest discomfort and getting short of breath on and off. Denies any cough, denies any fever, no chills, no headaches. He has some dizziness. No blurred vision. He has some runny nose and some sore throat, no difficulty swallowing. Appetite is okay except that he has chronic nausea from his gastroparesis. Denies any abdominal pain at this time. Normal bowel and bladder movements. No blood in the stools, no hematuria, no burning micturition. Ambulating in the ER room okay. The patient has a seizure disorder and he follows with a specialist at [place]. He has some shakiness in his right hand on and off, and he requests to establish with neurology in the [place] to save him the drive and he has also plans to follow with nephrology for his chronic kidney disease. ALLERGIES: BEE VENOM, PENICILLIN, REGLAN. PAST MEDICAL HISTORY: As mentioned above. PAST SURGICAL HISTORY: Colonoscopy, EGDs endoscopic ultrasound, pain pump placement, and removal of the infected pain pump, robotic thoracoscopy with lymphadenectomy, robotic thoracoscopy with lobectomy in 2017, upper endoscopy. MEDICATIONS: The patient currently on Keppra 500 mg p.o. b.i.d., MiraLax 17 g daily p.r.n., fentanyl patch 100 mcg q. 72 hours, oxycodone 10 mg p.o. q. 4 hours p.r.n. trimethobenzamide 300 mg 1 capsule t.i.d. p.r.n. for nausea, Insulin Glargine 15 units to the skin at bedtime, aspirin 81 mg p.o. daily, Zofran 8 mg p.o. t.i.d. p.r.n., lisinopril 40 mg p.o. daily, albuterol 2 puffs every 4 hours p.r.n., amlodipine 5 mg p.o. daily, ferrous sulfate 325 mg p.o. b.i.d., gabapentin 300 mg p.o. t.i.d., Humalog sliding scale, metoprolol 25 mg p.o. b.i.d., Compazine 10 mg p.o. q. 6 hours p.r.n., Tylenol 1000 mg p.o. q. 6 hours p.r.n., multivitamins 1 pill daily. FAMILY HISTORY: Significant for father has diabetes. Mother has diabetes. Sister has renal cell carcinoma, aunt has cancer. SOCIAL HISTORY: . Former smoker, quit in 2000, smoked half pack a day for 2 years. No alcohol use. No drug use. REVIEW OF SYMPTOMS: As per HPI. Rest of review of systems negative. PHYSICAL EXAMINATION: GENERAL: The patient is of moderate built, not in acute distress. VITAL SIGNS: Temperature 36.7, pulse 79, respiratory rate 21, blood pressure 91/69, oxygen 99% room air. HEENT: No pallor, no icterus. Pupils equal, round, and react to light. NECK: No JVD, no neck masses, no carotid bruit. CARDIOVASCULAR: S1, S2 heard, regular rate and rhythm, no murmur, no gallop. RESPIRATORY SYSTEM: Clear to auscultation bilaterally. No wheezing, no crackles. ABDOMEN: Soft, bowel sounds present. Nontender. No distention. CENTRAL NERVOUS SYSTEM: Cranial nerves II-XII grossly intact. Nonfocal. EXTREMITIES: No edema, no erythema seen. LABORATORIES: WBC 7.6, hemoglobin 10.8, hematocrit 31.4, platelets 230. PT 10.7, INR 1.1, APTT 23.9. D-dimer 740. Sodium 128, potassium 4, chloride 93, CO2 26, BUN 46, creatinine 3.37, glucose 432, creatinine 1.4, calcium 8.4, total bilirubin 0.4, AST 80 ALT 18, alkaline phosphatase is 89. Troponin I less than 0.015. BNP 590. Influenza A and B negative. Chest x-ray: No acute cardiopulmonary findings. Normal sinus rhythm. Rate of 88, no acute ST changes seen. ASSESSMENT AND PLAN: This is a 52-year-old male who presents with chest pain, shortness of breath. 1. Chest pain and shortness of breath, [place] It was radiating to his back, currently his pain is better, initially required oxygen. He was saturating 70% when EMS arrived, but is saturating okay now. Initial workup is negative. We will admit to tele floor. Serial cardiac enzymes, echocardiogram. Question of pulmonary embolism as D-dimer is elevated but could not get a CTA of the chest because of the renal function. We will do lower extremity Doppler and will order a VQ scan and monitor in tele floor and will also follow echocardiogram. Consult cardiology for further recommendations. 2. Acute kidney injury and chronic kidney disease, stage III. Baseline creatinine seems fluctuates from 1 to 1.8, currently creatinine is 3.37 . IV fluids. We will monitor labs in morning, also there is plan to follow with nephrology. We will consult nephrology while patient is still in the hospital. 3. Hyponatremia. Sodium of 128. It could be due to his ongoing nausea, vomiting and also hyperglycemia,. Will give gentle fluids. We will follow the labs in morning. Also follow urine and serum osmolality and urine sodium. Await nephrology input. 4. Diabetes, poorly controlled, blood sugars in 432. The patient says because of his nausea and vomiting, he feels dry and drinks big bottles of Gatorade, which he is not supposed to do and his sugars are running high at home. He is not in diabetic ketoacidosis .we will give a dose of IV insulin. Continue Lantus insulin sliding scale. Monitor the blood sugars and consult pharmacy for glycemic management and diabetic teaching. 5. History of chronic gastroparesis, placement of gastric pacemaker. Continue to use prn nausea medications. He could not tolerate Reglan in the past. If any issues, we will consult GI. 6. History of seizures, on Keppra. The patient says he goes to a specialist at [place], but he want to find someone locally and he is also having some shakiness in his hand and is concerned about it, so he wants to seen by neurologist. We will consult neurology while patient is here in the hospital. 7. Chronic pain from his neuropathy. Continue his home pain medications. 8. History of hypertension. Continue his home Lopressor and norvasc.. Holding lisinopril for IVAN . We will monitor the blood pressure. 9. Anemia. Continue his iron tablets. 10. Diabetic neuropathy. Continue Neurontin. 11. History of adenocarcinoma of the left lung, status post left lobectomy and s/p chemo, follows with hematology/oncology. Supposed to get a CAT scan in June. 12. Deep venous thrombosis prophylaxis, sequential compression devices for now. DISPOSITION: Admit to tele floor. Expect to discharge home and follow with his family doctor. Level I full code. MTDD
[2018-05-06] MEDS: OXYCODONE HCL IR 5 MG TAB (IMMEDIATE RELEASE) PO PRN ×2 (02:46→22:37)
[2018-05-06] MEDS: INSULIN ASPART 100 UNITS/ML 3 ML PEN SC SCH ×5 (02:47→20:58)
[2018-05-06] MEDS ORDERED: PHARMACY GLYCEMIC MGMT CONSULT PRN (05:32)
[2018-05-06 05:37] LABS: Appearance Urine Cloudy (Clear); Bacteria Urine Automated Negative (Negative); Bilirubin Urine Negative (Negative); Color Urine Yellow; Epithelial Cell Urine Auto >30 /lpf (0-5); Glucose Urine UA 3+ (Negative); Ketones Urine Trace (Negative); Leukocyte Esterase Urine Negative (Negative); Nitrite Urine Negative (Negative); Protein Urine 3+ (Negative); Specific Gravity Urine 1.025 (1.000-1.030); Urobilinogen Urine Negative (Negative)
[2018-05-06 05:44] LABS: Basophils # (auto) 0.03 K/uL (0-0.2); Basophils % (auto) 0.4 %; Eosinophils # (auto) 0.31 K/uL (0-0.5); Eosinophils % (auto) 4.4 %; Hematocrit (blood only) 32.6 % (42-52); Hemoglobin 11.1 g/dL (14.0-18.0); Immature Granulocytes # (auto) 0.03 K/uL (0.00-0.02); Immature Granulocytes % (auto) 0.4 %; Lymphocytes # (auto) 2.13 K/uL (1.2-3.4); Lymphocytes % (auto) 30.5 %; Monocytes # (auto) 0.78 K/uL (0.11-0.59); Monocytes % (auto) 11.2 %; Neutrophils # (auto) 3.71 K/uL (1.4-6.5); Neutrophils % (auto) 53.1 %; Platelet Count 199 K/uL (130-400); RDW Coefficient of Variation 13.7 % (11.5-14.5); RDW Standard Deviation 41.2 fL (36.4-46.3); Red Blood Count 3.88 M/uL (4.7-6.1); White Blood Count 6.99 K/uL (4.8-10.8)
[2018-05-06] MEDS ORDERED: PROMETHAZINE HCL 12.5 MG in SODIUM CHLORIDE 0.9% 50 ML IV PRN (05:49)
[2018-05-06 06:24] LABS: Blood Urea Nitrogen 45 mg/dl (7-18); Calcium 8.5 mg/dl (8.5-10.1); Carbon Dioxide 26 mmol/L (21-32); Chloride 101 mmol/L (98-107); Creatinine Clr Calc Pharmacy 28.1 ml/min; Est GFR (African American) 26.7; Glucose 174 mg/dl (70-99); Magnesium 1.9 mg/dl (1.8-2.4); Potassium 3.6 mmol/L (3.5-5.1); Sodium 134 mmol/L (136-145)
[2018-05-06 06:29] LABS: Creatine Kinase MB 10.5 ng/ml (0.5-3.6)
[2018-05-06 06:55] LABS: Estimated Average Glucose 209 mg/dl
[2018-05-06] MEDS ORDERED: DEXTROSE 5% 1,000 ML IV SCH (07:45)
--- NOTE | 2018-05-06 08:20 | Ultrasound Report ---
BILATERAL LOWER EXTREMITY VENOUS DOPPLER CLINICAL HISTORY: dvt? COMPARISON STUDY: Bilateral lower extremity venous Doppler February 11, 2017. TECHNIQUE: Sonography of the deep venous system of the bilateral lower extremities was performed. Co mpression and augmentation were evaluated. FINDINGS: The bilateral common femoral, superficial femoral and popliteal veins were compressible. A ugmentation was normal. Flow was shown within the deep calf vessels. IMPRESSION: No evidence of deep venous thrombus within the bilateral lower extremities. Electronically signed by: Bryce Perez M.D. 05/06/2018 8:19 AM
[2018-05-06] MEDS ORDERED: SODIUM CHLORIDE 0.45 % 1,000 ML IV SCH (08:30)
[2018-05-06] MEDS: fentaNYL 100 MCG/HR TDSY TD SCH (08:57)
[2018-05-06] MEDS: METOPROLOL TARTRATE 25 MG TAB PO SCH ×2 (09:00→20:57)
[2018-05-06] MEDS ORDERED: levETIRAcetam 500 MG TAB PO SCH (09:00)
[2018-05-06] MEDS: GABAPENTIN 300 MG CAP PO SCH ×3 (09:01→20:57)
[2018-05-06] MEDS: PANTOprazole 40 MG TAB PO SCH (09:01)
[2018-05-06] MEDS: MULTIVITAMIN TAB PO SCH (09:01)
[2018-05-06] MEDS: AMLODIPINE BESYLATE 5 MG TAB PO SCH (09:01)
[2018-05-06] MEDS: POLYETHYLENE (MIRALAX) 17 GM PACK PO SCH (09:02)
[2018-05-06] MEDS: ASPIRIN 81 MG ECTAB PO SCH (09:02)
[2018-05-06] MEDS: FERROUS SULFATE 325 MG TAB PO SCH (09:02)
--- NOTE | 2018-05-06 10:08 | Nephrology Consultation ---
Date of Consultation May 06, 2018 Assessment & Plan (1) IVAN (acute kidney injury): Patient with acute kidney injury on CKD likely due to prerenal azotemia in setting of diarrhea and vomiting. We do not have a clear baseline but creatinine was 1.3 a year ago. Patient has had multiple episodes of AK I in setting of GI losses. Creatinine today is down to 2.9 from 3.3 yesterday. Urinalysis showed concentrated urine and a urine sodium of 17. Recommend IV resuscitation with Ringer's lactate at 125 mL/h. Monitor input output. Avoid nephrotoxins if possible. Will obtain renal ultrasound to rule out obstruction given history of neurogenic bladder. (2) Acute hyponatremia: Patient admitted with the sodium of 128. He had hyperglycemia and high BUN. Corrected sodium close to 134. Serum osmolality was not checked but most likely normal. Sodium today is 134. Monitor daily. (3) Acute dyspnea: Patient admitted with shortness of breath. Chest x-ray no signs of volume overload. Continue fluid resuscitation as above. (4) Hypertension: Patient with hypertension controlled on metoprolol and lisinopril. Lisinopril was on hold due to acute kidney injury. Continue amlodipine and metoprolol. Blood pressure is controlled. History of Present Illness Reason for Consultation: Acute kidney injury Requesting Physician: Dany Sheehan MD Attending Physician: Stephon Vernon MD History of Present Illness This is a 53-year-old male with multiple medical problems including type II DM, autonomic dysfunction, seizure disorder, adenocarcinoma of the lung status post chemo therapy and resection, chronic pain, gastroparesis, neurogenic bladder and CKD stage III who was admitted yesterday with shortness of breath found to have hypoglycemia and worsening renal function. He had a creatinine of 3.3 yesterday and today is down to 2.98. Patient recently admitted to hospital in [place] with spider bite on his left finger. He was told he had abnormal kidney function that time. Patient does not recall specific values of the creatinine. He had a creatinine of 1.3 about a year ago. He is planning to establish care with nephrology here. Patient reports diarrhea for the past 5 days. He had nausea and vomiting yesterday. He vomits almost on a daily basis due to gastroparesis. Patient also had a sodium of 128 on admission but that has improved to 134 today. Today feels better denying any shortness of breath. He still has nausea but no vomiting. He denies any urinary symptoms. Denies NSAID use. Allergies Allergy/AdvReac Type Severity Reaction Status Date / Time bee venom protein (honey bee) Allergy Mild SWELLING Verified 05/05/18 21:24 AT SITE, SOB Penicillins Allergy Unknown "SINCE Unverified 05/05/18 21:24 "-Amoxicillin metoclopramide AdvReac Unknown hallucinati Verified 05/05/18 21:24 ons Home Medications Home Medications Medication Instructions Recorded Confirmed Type acetaminophen [Acetaminophen Extra 1,000 mg PO Q6H PRN 05/05/18 05/05/18 History Strength] albuterol sulfate 2 puff INHALATION Q4H PRN 05/05/18 05/05/18 History amlodipine 5 mg PO DAILY 05/05/18 05/05/18 History aspirin [Aspirin Low Dose] 81 mg PO DAILY 05/05/18 05/05/18 History epinephrine [EpiPen] 0.3 mg IM Q3H PRN 05/05/18 05/05/18 History fentanyl 1 patch TOPICAL Q2D 05/05/18 05/05/18 History ferrous sulfate 325 mg PO DAILY 05/05/18 05/05/18 History gabapentin 300 mg PO TID 05/05/18 05/05/18 History insulin glargine [Basaglar KwikPen 15 unit SUBCUT HS 05/05/18 05/05/18 History U-100 Insulin] insulin lispro [Humalog U-100 1 sliding scale dose SUBCUT UD 05/05/18 05/05/18 History Insulin] levetiracetam [Keppra] 500 mg PO BID 05/05/18 05/05/18 History lisinopril 40 mg PO DAILY 05/05/18 05/05/18 History magnesium oxide 400 mg PO BID 05/05/18 05/05/18 History metoprolol tartrate 75 mg PO BID 05/05/18 05/05/18 History multivitamin 1 tab PO DAILY 05/05/18 05/05/18 History ondansetron HCl 8 mg PO Q8H PRN 05/05/18 05/05/18 History oxycodone 10 mg PO Q4H 05/05/18 05/05/18 History pantoprazole 40 mg PO DAILY 05/05/18 05/05/18 History polyethylene glycol 3350 [Miralax] 17 g PO DAILY 05/05/18 05/05/18 History prochlorperazine maleate 10 mg PO Q6H PRN 05/05/18 05/05/18 History trimethobenzamide 300 mg PO TID PRN 05/05/18 05/05/18 History Patient History Medical History Gastroparesis (Chronic) "s/p gastric stimulator" Hypertension (Chronic) Lung cancer (Chronic) "dx 01/2016; adenoCa SHAWN; + hilar nodes; s/p left upper lobectomy + chemo" On 08/05/16 16:31 Edie Mcfarland wrote "dx 01/2016; s/p L side lobectomy; currently undergoing chemo" Diabetic peripheral neuropathy (Chronic) Diabetic autonomic neuropathy (Chronic) Chronic pain (Chronic) Diabetes mellitus type 2, uncontrolled (Acute) Hypomagnesemia Surgical History History of cholecystectomy (Chronic) History of tonsillectomy and adenoidectomy (Chronic) Hx of total knee arthroplasty (Chronic) S/P lobectomy of lung (Chronic) "left upper lobectomy for adenoCa" On 08/05/16 16:30 Edie Mcfarland wrote "L side @ [facility] 05/25/16" H/O esophagogastroduodenoscopy (Chronic) "01/26/2015- LA Grade B reflux esophagitis, gastritis; Dr. Major" H/O colonoscopy (Chronic) " 04/22/2013- Mildly congested and erythematous mucosa in the ascending colon. One 1 mm polyp in the ascending colon resected. One benign appearing 1 mm polyp in the rectum resected. Internal hemorrhoids; Dr. Demarco" Social History Current Living Situation: Alone Other Information That Helps Us Care for You: No Feels Safe at Home: Yes Safety Concerns: Feels Safe At This Time Smoking Status: Never smoker Tobacco Type: smokeless tobacco Do You Dip or Chew Tobacco: Yes Hx Alcohol Use: No Hx Substance Use: Yes substance use type: prescription drug Last Used Substance : Just Prior to Arrival Beliefs That Will Affect Care: None Preferred Language: Jamaican Communication Ability: Effective Computer Security Specialist Required: No Review of Systems All other systems were reviewed and negative except as noted in HPI Physical Exam 2 Vital Signs (Past 24 Hours): Last Vital Signs Temp 36.5 C 05/06/18 07:10 Pulse 75 05/06/18 09:00 Resp 20 05/06/18 07:10 BP 148/83 H 05/06/18 07:10 Pulse Ox 96 05/06/18 07:10 Physical Exam: General exam: Appears comfortable, no acute distress HEENT: Pupils are equal and reactive to light Neck: No JVD, neck is supple trachea is midline Respiratory system: Clear breath sounds bilaterally. Gastrointestinal: Abdomen is soft, non distended, epigastric tenderness, bowel sounds are present CVS: Regular rate and rhythm. No murmurs, rubs or gallops Musculoskeletal: No joint or muscle tenderness Extremities: Non tender, no edema, peripheral pulses are present Neuro: Oriented, no tremors, no focal neurological deficits Skin: No rashes Results & Data Laboratory Results Reviewed including creatinine of 2.98. Urine sodium of 17
--- NOTE | 2018-05-06 10:34 | Ultrasound Report ---
RENAL ULTRASOUND CLINICAL HISTORY: IVAN, ? obstructive uropathy COMPARISON STUDY: CT of the abdomen and pelvis April 25, 2017. TECHNIQUE: Sonography of the kidneys and the urinary bladder was performed. FINDINGS: The right kidney measures 9.8 cm in maximal dimension and the left measures 10.9 cm. There is no hydronephrosis. Renal echogenicity, size and cortical thickness are normal. Neither ureteral je t was identified. Mild bladder wall thickening is a nonspecific finding. IMPRESSION: 1. No hydronephrosis. 2. Unremarkable sonographic appearance of the kidneys. 3. Mild bladder wall thickening. Electronically signed by: Bryce Perez M.D. 05/06/2018 10:33 AM
[2018-05-06 10:52] LABS: BUN Creatinine Ratio 15.6 (10-20); Calcium 8.1 mg/dl (8.5-10.1); Creatinine Clr Calc Pharmacy 29.9 ml/min; Est GFR (African American) 28.8; Est GFR (Non-African American) 24.8; Potassium 3.6 mmol/L (3.5-5.1)
[2018-05-06] MEDS: LACTATED RINGER'S 1,000 ML IV SCH ×2 (11:31→17:38)
--- NOTE | 2018-05-06 11:45 | Consultation Report ---
DATE OF CONSULTATION: 05/06/2018 CONSULTATION REQUESTED BY: Dr. Saenz. REASON FOR CONSULTATION: Chest pain. HISTORY OF PRESENT ILLNESS: The patient is a very medically complex 52-year-old gentleman, not known to our Cardiology practice, who presented to [facility] Emergency Department in the evening of 05/05/2018 with complaints of acute chest pain. The patient states he has been in his normal state of health lately with slightly worsened nausea and vomiting for the last week. He states that last evening he was out in [facility] [facility] [employer]. He was watching a musical performance at a [employer] and after being there for about 45 minutes resting comfortably, he developed chest pain. He described it as a sharp, stabbing pain in the center of his chest that radiated directly through to the back. It was associated with a feeling that he could not catch his breath and worsening nausea. When this occurred, the patient vomited and the pain seemed to intensify. He was having much more difficulty catching his breath as time went by particularly noting that whenever he try to take a deep breath, the pain would significantly worsen. His finally called EMS and EMS reportedly told the patient that he is hypoxic with saturations in the 70s and was given oxygen; however, upon arrival to the Emergency Department, he has been saturating well on room air ever since. In the Emergency Department, he was given normal saline and admitted to telemetry. He states that his pain persisted until he fell asleep and woke up with it gone. He states his breathing is just about back to normal and remains a little nauseous, which is not far off his baseline. Of note, the patient states he has not been able to keep down any medications, any food or water for the last week stating that he would just vomit everything up. The patient states he has never had a cardiac history and never been seen by a block out machine operator either. PAST SURGICAL HISTORY: 1. Intrathecal pain pump placement and subsequent removal secondary to infection. 2. Upper endoscopy showing inflammation. 3. Robotic lobectomy. 4. Multiple colonoscopies. 5. Tonsillectomy and adenoidectomy. 6. Knee surgery. MEDICAL ILLNESSES: 1. Nonsmall cell lung cancer status post lobectomy and chemotherapy. 2. Type 1 diabetes. 3. Longstanding diabetic gastroparesis, on chronic narcotics for pain. 4. Diabetic neuropathy. 5. Hypertension. 6. Intrathecal pain pump. 7. Autonomic dysfunction. 8. Tobacco abuse history. FAMILY HISTORY: Noncontributory. SOCIAL HISTORY: The patient is a former smoker, quit approximately 20 years ago. Denies any alcohol or recreational drug use. He is . REVIEW OF SYSTEMS: As per HPI, all other review of systems reviewed and negative at this time. ALLERGIES: 1. PENICILLIN. 2. BEE STINGS. MEDICATIONS AN OUTPATIENT: 1. Fentanyl pain patch. 2. P.r.n. oxycodone. 3. Keppra b.i.d. 4. Lisinopril 40 mg daily. 5. Zofran as needed. 6. Amlodipine 5 mg daily. 7. Insulin as directed. 8. Metoprolol tartrate 75 mg b.i.d. 9. Aspirin 81 mg daily. PHYSICAL EXAMINATION: VITAL SIGNS: Temperature 36.5, pulse 75, respiratory rate 12, blood pressure 148/83, saturating 96% on room air. GENERAL: Awake, alert, oriented x3, no acute distress, lethargic and heavily medicated in appearance. HEENT: Normocephalic, atraumatic. Pupils equal, round react to light and accommodation. Extraocular muscles intact. Anicteric sclerae. Moist mucous membranes. NECK: No JVD, no bruit. CARDIOVASCULAR: Regular. Positive S4. Normal S1 and S2. No S3. No murmurs or rubs. PULMONARY: Clear to auscultation bilaterally. No rales, rhonchi or wheezing. ABDOMEN: Bowel sounds x4, soft, diffusely tender. No rebound, guarding or organomegaly. EXTREMITIES: No clubbing, cyanosis or edema. Reduced pedal pulses bilaterally +1. SKIN: Warm and dry. TEST RESULTS: A 12-lead EKG performed in the Emergency Department independently reviewed at this time shows significant baseline artifact likely due to gastric pacemaker. No acute ischemia. Slightly reduced poor R-wave progression across the precordium. A 2D echocardiogram was read as normal LV chamber size with moderate concentric LVH, sigmoid appearing septum, normal LV systolic function without regional wall motion abnormality, EF 55%-60%, no segmental left ventricle wall motion abnormalities were noted, grade 1 diastolic dysfunction, no significant valvular pathology. LABORATORY STUDIES OF SIGNIFICANCE: Upon presentation, sodium 128, BUN 46, creatinine 3.4. Troponin negative x2. IMPRESSION: 1. Chest pain reproducible, likely somatic dysfunction secondary to retching. 2. Complicated diabetes. 3. Acute on chronic renal failure. 4. Chronic pain. 5. Diabetic gastroparesis. 6. History of gastroesophageal reflux disease with esophageal wall thickening. 7. Lung cancer status post lobectomy and chemotherapy. RECOMMENDATIONS: The patient was counseled given the fact that his EKG is nonischemic. His troponin is negative especially in the light of acute renal failure along with no wall motion abnormalities on his echocardiogram and the fact that his pain is completely reproducible shows this all points to a noncardiac source of his chest pain. I believe it is likely due to somatic dysfunction of the left fifth intercostal space, likely secondary to ongoing retching for the past week. So, no further cardiac testing or intervention is necessary at this time and we will defer further treatment to our Internal Medicine and Nephrology colleagues.
--- NOTE | 2018-05-06 13:26 | Hospitalist Progress Note ---
Date of Service May 06, 2018 Assessment & Plan (1) IVAN (acute kidney injury): Patient with acute kidney injury on CKD likely due to prerenal azotemia in setting of diarrhea and vomiting. No baseline creatinine known. Creatinine today is down to 2.9 from 3.3 yesterday. Urinalysis showed concentrated urine and a urine sodium of 17. Appreciate nephrology input and recommendation Creatinine has been improving Will monitor BP. (2) Acute hyponatremia: Patient admitted with the sodium of 128. Likely secondary to loss from GI tract Corrected sodium close to 134. Sodium today is 134. Present on Admission?: Yes (3) Acute dyspnea: Patient admitted with shortness of breath. Chest x-ray no signs of volume overload. Continue fluid resuscitation as above. Seems to be multifactorial but no pneumonia and/or CHF identified (4) Hypertension: Patient with hypertension controlled on metoprolol and lisinopril. Lisinopril was on hold due to acute kidney injury. Continue amlodipine and metoprolol. Blood pressure is controlled. (5) Seizure disorder: Last seizures more than a month ago Has been getting intravenous antiepileptics Await neurology evaluation (6) Gastroparesis: Has history ongoing gastroparesis secondary to diabetes Has a gastric stimulator Symptomatic management for now Await GI evaluation (7) Diabetic peripheral neuropathy: Has severe peripheral neuropathy Does not recognize any pressure sensation in the legs (8) Chest pain: Complained of exertional chest pain EKG and cardiac enzymes Echo; EF was 55-60%, moderate concentric LVH with sigmoid septum no LV or motion abnormality and grade 1 diastolic dysfunction Appreciate cardiology input Chest pain seems to be noncardiac Present on Admission?: Yes Subjective He is a 52-year-old male with past medical history significant for diabetes, autoimmune dysfunction,,diabetic gastroparesis, status post gastric pacemaker, history of intrathecal pump for neuropathy, but it is taken out secondary to infection, on chronic pain medications, history of pancreatitis, gastritis, hypertension, history of malignant neoplasm of upper lobe of the left lung, adenocarcinoma, status post resection, status post chemo and supposed to get a follow up CAT scan in June of this year, no longer on any chemo, neurogenic bladder, neuropathy, history of seizure disorder. The patient chronically has nausea, vomiting from his gastroparesis. Has been complaining of chest pain and was noted to have abnormal workup with blood. 05/06 The patient was seen and examined in telemetry unit Complains to have chest pain that goes to the back Still has nausea but no vomiting Has generalized weakness and dark urine Denies any seizures for for a while Physical Exam 2 Vital Signs (Past 24 Hours): Last Vital Signs Temp 36.4 C L 05/06/18 11:27 Pulse 63 05/06/18 11:27 Resp 18 05/06/18 11:27 BP 113/75 05/06/18 11:27 Pulse Ox 98 05/06/18 11:27 Physical Exam: Lying in bed comfortably Constitutional: WD/WN, vitals as above (When asking questions complained to have chest pain) Eyes: PERRL, conjunctivae normal, anicteric sclerae ENMT: external ear and nose normal, oropharynx normal Respiratory: normal respiratory effort Auscultation: + diminished lung sounds (At the bases) Cardiovascular: Rate/Rhythm: regular rate and regular rhythm Heart Sounds: normal S1 and normal S2 Gastrointestinal (Abdomen): Inspection/Auscultation: abdomen normal to inspection and normal bowel sounds Percussion/Palpation: + abdomen tender and abdomen soft; no guarding and abdomen not rigid Neurologic: awake Generally weak with severe peripheral neuropathy Results & Data Laboratory Results Short CBC 05/05/18 05/06/18 Range/Units 20:28 05:25 WBC 7.68 6.99 (4.8-10.8) K/uL Hgb 10.8 L 11.1 L (14.0-18.0) g/dL Hct 31.4 L 32.6 L (42-52) % Plt Count 230 199 (130-400) K/uL BMP 05/05/18 05/05/18 05/06/18 20:28 22:11 05:25 Sodium 128 L 134 L Potassium 4.0 3.6 Chloride 93 L 101 Carbon Dioxide 26 26 BUN 46 H 45 H Creatinine 3.37 H 2.98 H D Glucose 432 H* 174 H Calcium 8.4 L 8.5 05/06/18 09:58 Sodium 135 L Potassium 3.6 Chloride 102 Carbon Dioxide 25 BUN 44 H Creatinine 2.80 H Glucose 183 H Calcium 8.1 L Cardiac Enzymes 05/05/18 05/06/18 05/06/18 Range/Units 20:28 02:33 05:25 CK-MB (CK-2) 10.5 H (0.5-3.6) ng/ml Troponin I < 0.015 < 0.015 (0-0.045) ng/ml Liver Function 05/05/18 05/05/18 Range/Units 20:28 22:11 Total Bilirubin 0.4 (0.2-1) mg/dl AST 8 L (15-37) U/L ALT 18 (12-78) U/L Alkaline Phosphatase 89 (45-117) U/L Albumin 3.4 (3.4-5.0) gm/dl Urine 05/06/18 Range/Units 05:20 Urine Color Yellow Urine Appearance Cloudy H (Clear) Urine pH 5.0 (4.5-7.5) Ur Specific [place] 1.025 (1.000-1.030) Urine Protein 3+ H (Negative) Urine Glucose (UA) 3+ H (Negative) Medications Administered Current Inpatient Medications Acetaminophen (Tylenol) 650 mg PO Q4H PRN PRN Reason: Pain or Fever Stop: 06/05/18 00:37 Albuterol (Ventolin Hfa) 2 puffs INH Q4H PRN PRN Reason: Shortness Of Breath Stop: 06/05/18 00:37 Amlodipine Besylate (Norvasc) 5 mg PO DAILY [facility] Stop: 06/05/18 08:59 Last Admin: 05/06/18 09:01 Dose: 5 mg Aspirin (Ecotrin) 81 mg PO DAILY [facility] Stop: 06/05/18 08:59 Last Admin: 05/06/18 09:02 Dose: 81 mg Dextrose (Dextrose 50%) 25 - 50 ml IV UD PRN; Protocol PRN Reason: Hypoglycemia Protocol Stop: 06/05/18 01:39 Epinephrine HCl (Epipen) 0.3 mg IM Q3H PRN PRN Reason: Allergic Reaction Stop: 06/05/18 00:37 Fentanyl (Duragesic) 100 mcg TD Q72H [facility] Stop: 05/20/18 07:59 Last Admin: 05/06/18 08:57 Dose: 100 mcg Ferrous Sulfate (Feosol) 325 mg PO DAILY [facility] Stop: 06/05/18 08:59 Last Admin: 05/06/18 09:02 Dose: 325 mg Gabapentin (Neurontin) 300 mg PO TID [facility] Stop: 06/05/18 08:59 Last Admin: 05/06/18 09:01 Dose: 300 mg Glucagon (Glucagen) 1 mg IM UD PRN; Protocol PRN Reason: Hypoglycemia Protocol Stop: 06/05/18 01:39 Glucose (Glucose 40%) 15 - 30 gm PO UD PRN; Protocol PRN Reason: Hypoglycemia Protocol Stop: 06/05/18 01:39 Glucose (Dex4 Glucose) 4 - 8 tabs PO UD PRN; Protocol PRN Reason: Hypoglycemia Protocol Stop: 06/05/18 01:39 Levetiracetam 500 mg/ Dextrose 105 mls @ 420 mls/hr IV Q12H [facility] Stop: 06/05/18 07:59 Last Infusion: 05/06/18 08:15 Dose: 420 mls/hr Promethazine HCl 12.5 mg/ (Sodium Chloride) 50.5 mls @ 204 mls/hr IV Q6H PRN PRN Reason: Nausea And Vomiting Stop: 06/05/18 05:48 Lactated Ringer's (Lr) 1,000 mls @ 125 mls/hr IV .Q8H [facility] Stop: 05/07/18 02:59 Last Admin: 05/06/18 11:31 Dose: 125 mls/hr Insulin Aspart (Novolog Flexpen) 0 units SC Q6 [facility] Stop: 06/05/18 01:44 Last Admin: 05/06/18 12:05 Dose: 6 units Metoprolol Tartrate (Lopressor) 75 mg PO BID [facility] Stop: 06/05/18 08:59 Last Admin: 05/06/18 09:00 Dose: 75 mg Miscellaneous (Order Awaiting Action) 1 ea N/A QS [facility] Stop: 06/05/18 07:59 Miscellaneous (Carbohydrates For Hypoglycemia) 15 - 30 gm PO UD PRN PRN Reason: Hypoglycemia Treatment Stop: 06/05/18 01:39 Miscellaneous (Fentanyl Patch Remove & Waste) 1 ea N/A Q72H [facility] Stop: 06/05/18 07:58 Last Admin: 05/06/18 08:58 Dose: 1 ea Miscellaneous (Fentanyl Patch Check Placement) 1 ea N/A QS [facility] Stop: 06/05/18 15:59 Miscellaneous Information (Consult Glycemic Management Pharmacy) 1 ea N/A UD PRN PRN Reason: Consult Stop: 06/05/18 05:31 Multivitamins (Multivitamin) 1 tab PO DAILY [facility] Stop: 06/05/18 08:59 Last Admin: 05/06/18 09:01 Dose: 1 tab Nitroglycerin (Nitrostat) 0.4 mg SL UD PRN PRN Reason: Chest Pain Stop: 06/05/18 00:37 Ondansetron HCl (Zofran) 4 mg IV Q6H PRN PRN Reason: Nausea Stop: 06/05/18 00:37 Oxycodone HCl (Roxicodone Immediate Rel) 10 mg PO Q4H PRN PRN Reason: Pain Stop: 05/20/18 00:37 Last Admin: 05/06/18 02:46 Dose: 10 mg Pantoprazole Sodium (Protonix) 40 mg PO DAILY [facility] Stop: 06/05/18 08:59 Last Admin: 05/06/18 09:01 Dose: 40 mg Polyethylene Glycol (Miralax Powder Packet) 17 gm PO DAILY [facility] Stop: 06/05/18 08:59 Last Admin: 05/06/18 09:02 Dose: Not Given Prochlorperazine (Compazine) 10 mg PO Q6H PRN PRN Reason: Acid Reflux Stop: 06/05/18 00:37 _ (1) Chest pain Chest pain type: unspecified Ischemic chest pain type: Qualified Code(s): R07.9 - Chest pain, unspecified
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
[2018-05-06] MEDS: CHECK FENTANYL PATCH PLACEMENT SCH (15:48)
[2018-05-06 16:18] LABS: BUN Creatinine Ratio 16.4 (10-20); Calcium 8.1 mg/dl (8.5-10.1); Creatinine Clr Calc Pharmacy 34.3 ml/min; Est GFR (Non-African American) 29.3; Potassium 3.6 mmol/L (3.5-5.1)
[2018-05-06] MEDS ORDERED: INSULIN GLARGINE SOLOSTAR 100 UNITS/ML 3 ML PEN SC SCH (18:00)
[2018-05-06 19:35] LABS: Total Protein Urine Random 178.7 mg/dl (0-11.9)
[2018-05-06] MEDS: INSULIN GLARGINE SOLOSTAR 100 UNITS/ML 3 ML PEN SC SCH (20:56)
[2018-05-06] MEDS: ONDANSETRON INJ 2 MG/ML 2 ML VIAL IV PRN (22:37)
[2018-05-07] MEDS ORDERED: INSULIN ASPART 100 UNITS/ML 3 ML PEN SC SCH
[2018-05-07] MEDS: CHECK FENTANYL PATCH PLACEMENT SCH ×3 (00:03→16:20)
[2018-05-07] MEDS: OXYCODONE HCL IR 5 MG TAB (IMMEDIATE RELEASE) PO PRN ×2 (04:40→19:27)
[2018-05-07] MEDS: ONDANSETRON INJ 2 MG/ML 2 ML VIAL IV PRN (04:41)
[2018-05-07 06:08] LABS: Basophils # (auto) 0.04 K/uL (0-0.2); Basophils % (auto) 0.6 %; Eosinophils # (auto) 0.41 K/uL (0-0.5); Eosinophils % (auto) 5.7 %; Hematocrit (blood only) 28.6 % (42-52); Hemoglobin 9.9 g/dL (14.0-18.0); Immature Granulocytes # (auto) 0.01 K/uL (0.00-0.02); Immature Granulocytes % (auto) 0.1 %; Lymphocytes # (auto) 2.13 K/uL (1.2-3.4); Lymphocytes % (auto) 29.5 %; Mean Corpuscular Hgb Conc 34.6 g/dL (32-36); Mean Corpuscular Volume 84.9 fL (80-100); Mean Platelet Volume 10.6 fL (7.4-10.4); Monocytes # (auto) 0.48 K/uL (0.11-0.59); Monocytes % (auto) 6.6 %; Neutrophils # (auto) 4.16 K/uL (1.4-6.5); Neutrophils % (auto) 57.5 %; Platelet Count 196 K/uL (130-400); RDW Coefficient of Variation 13.7 % (11.5-14.5); RDW Standard Deviation 42.6 fL (36.4-46.3); Red Blood Count 3.37 M/uL (4.7-6.1); White Blood Count 7.23 K/uL (4.8-10.8)
[2018-05-07 06:42] LABS: BUN Creatinine Ratio 14.8 (10-20); Creatinine Clr Calc Pharmacy 32.9 ml/min; Est GFR (African American) 32.4; Est GFR (Non-African American) 27.9; Magnesium 1.7 mg/dl (1.8-2.4); Potassium 3.6 mmol/L (3.5-5.1)
[2018-05-07] MEDS: INSULIN ASPART 100 UNITS/ML 3 ML PEN SC SCH ×4 (07:56→20:56)
[2018-05-07] MEDS: POLYETHYLENE (MIRALAX) 17 GM PACK PO SCH (08:00)
[2018-05-07] MEDS: AMLODIPINE BESYLATE 5 MG TAB PO SCH (08:00)
[2018-05-07] MEDS: METOPROLOL TARTRATE 25 MG TAB PO SCH ×2 (08:00→20:52)
[2018-05-07] MEDS: MULTIVITAMIN TAB PO SCH (08:00)
[2018-05-07] MEDS: PANTOprazole 40 MG TAB PO SCH (08:00)
[2018-05-07] MEDS: GABAPENTIN 300 MG CAP PO SCH ×3 (08:00→20:52)
[2018-05-07] MEDS: ASPIRIN 81 MG ECTAB PO SCH (08:01)
[2018-05-07] MEDS: FERROUS SULFATE 325 MG TAB PO SCH (08:01)
--- NOTE | 2018-05-07 08:54 | Pharmacy Report ---
Glycemic Control Consultation - Date of Service May 07, 2018 - Scope Scope: Glycemic Pharmacist consulted by Dr Saenz on 05/06/17 for glycemic control and to write orders per [facility] inpatient glycemic control protocol - Objective Weight: 76.4 kg Accuchecks BSG (last 24hrs): 05/06/18 05/06/18 05/06/18 09:58 12:00 15:52 Glucose 183 H 90 POC Glucose 217 H 05/06/18 05/06/18 05/07/18 16:10 20:23 00:01 Glucose POC Glucose 84 310 H 90 05/07/18 05/07/18 05/07/18 04:11 05:38 07:15 Glucose 119 H POC Glucose 110 H 121 H Laboratory Data (last 24hrs): 05/06/18 05/06/18 05/07/18 09:58 15:52 05:38 Potassium 3.6 3.6 3.6 Carbon Dioxide 25 25 23 Anion Gap 8.0 7.0 8.0 Creatinine 2.80 H 2.44 H D 2.54 H Est Cr Clr Drug Dosing 29.9 34.3 32.9 HbA1c: Hemoglobin A1c 8.9 % (4.5-5.6) H 05/06/18 05:25 - Recent Pertinent Medications Outpatient Anti-diabetic Regimen: * Basaglar 15 units SQ HS + Humalog SSI * A1c = 8.9 % 05/06/17 The patient is currently receiving: * Basal insulin: Lantus 15-20 units every 24 hours * Correctional Insulin: Novolog Correction per scale ACHS Goal Range: Low 110 mg/dL - High 140 mg/dL Correction Factor: 30 mg/dL/unit * Prandial insulin: Per carb ratio of 1 unit per 10 grams CHO consumed - Assessment & Plan Assessment & Plan: ASSESSMENT: * 52 yr old T2DM male admitted with chest pain, shortness of breath, IVAN and hyponatremia likely due to vomiting and diarrhea. * Patient reports drinking large bottles of Gatorade at home due to vomiting. Poor outpatient glycemic control - A1c 8.9%. * Patient is known to the Pharmacy Glycemic service. We last followed him in May of 2017. He required 20-38 units per day during that admission. * Fasting BSG of 121 mg/dL is at goal. Continue current Lantus scale. * Post prandial BSGs are fluctuating. I will slightly loosen Novolog carb ratio. Current carb ratio has lead to hypoglycemia in the past. PLAN FOR INPATIENT GLYCEMIC CONTROL: * Basal insulin * Lantus 15-20 units SQ qHS * 15 units for BSG < 140 mg/dL * 20 units for BSG 140 mg/dL or more * Bolus insulin - loosen carb coverage * NovoLog per scale ACHS or Q6hrs while NPO * Goal Range: Low 110 mg/dL - High 140 mg/dL * Correction Factor: 30 mg/dL/unit * Nutritional / Prandial insulin per carb ratio of 1 unit per 12 grams CHO consumed * Please note that the plan above was derived based on current level of insulin resistance and hospital stress. These recommendations are appropriate for inpatient admission only. Plan of care upon discharge will need to be reassessed to avoid potential outpatient hypo/hyperglycemia. Thank you.
--- NOTE | 2018-05-07 09:58 | Nephrology Progress Note ---
Date of Service May 07, 2018 Assessment & Plan (1) IVAN (acute kidney injury): acute kidney injury on CKD likely due to prerenal azotemia in setting of diarrhea and vomiting. We do not have a clear baseline but creatinine was 1.3 a year ago. Patient has had multiple episodes of IVAN in setting of GI losses. Creatinine today is down to 2.5 from 2.9 yesterday and 3.3 day before. Urinalysis showed concentrated urine and a urine sodium of 17. electrolyte disorders such as low Na on presentation corrected appropriately -cont Ringer's lactate at 125 mL/h. -he is not oliguric; no indication for bladder scan at this point; renal u/s reassuring -Monitor input output. (2) Hypertension: Patient with hypertension controlled on metoprolol and lisinopril as outpatient. Lisinopril was on hold due to acute kidney injury. today relatively low BP -stop amlodipine -keep holding ACEI -cont metoprolol. Subjective c/o R flank pain, worries UOP is too low and cannot void. no sob, no palpitations or chest pain. stable chronic paresthesias. no rash. ongoing n/v/ diarrhea/ abd pain. minimal edema. no f/c; + hunger. chronic back pain. Physical Exam 2 Vital Signs (Past 24 Hours): Last Vital Signs Temp 36.5 C 05/07/18 07:13 Pulse 71 05/07/18 08:37 Resp 18 05/07/18 07:13 BP 91/54 L 05/07/18 07:13 Pulse Ox 99 05/07/18 07:13 Constitutional: well developed and well nourished on RA, ambulatory w/ care Eyes: EOM intact bilaterally ENMT: Ears: no external ear abnormality Nose: no external nose abnormality Mouth: + dry oral mucous membranes Neck: no nuchal rigidity Respiratory: normal respiratory effort Auscultation: + diminished lung sounds Cardiovascular: RRR, no murmur, no edema Gastrointestinal (Abdomen): Inspection/Auscultation: normal bowel sounds Percussion/Palpation: + abdomen tender (diffuse and not reproducible) and abdomen soft abd pacer palpable Musculoskeletal: Extremities: strength 5/5 throughout BL finger strictures , some recent icisions Skin: no rashes, warm and dry Neurologic: villarreal, fluent speech, no tremor Psychiatric: Orientation: alert and oriented x 3 Apperance: appropriately groomed Speech: + pressured speech Affect: + anxious affect Mood: + anxious mood Thought Process: + flight of ideas Genitourinary: no ruiz Results & Data Laboratory Results Abnormal lab results 05/06/18 05/06/18 05/07/18 Range/Units 18:50 20:23 04:11 RBC (4.7-6.1) M/uL Hgb (14.0-18.0) g/dL Hct (42-52) % MPV (7.4-10.4) fL BUN (7-18) mg/dl Creatinine (0.6-1.4) mg/dl Glucose (70-99) mg/dl POC Glucose 310 H 110 H (70-99) Calcium (8.5-10.1) mg/dl Magnesium (1.8-2.4) mg/dl U Random Total Protein 178.7 H (0-11.9) mg/dl Protein/Creatinin Ratio 1.1 H (0-0.2) 05/07/18 05/07/18 05/07/18 Range/Units 05:38 05:38 07:15 RBC 3.37 L (4.7-6.1) M/uL Hgb 9.9 L (14.0-18.0) g/dL Hct 28.6 L (42-52) % MPV 10.6 H (7.4-10.4) fL BUN 38 H (7-18) mg/dl Creatinine 2.54 H (0.6-1.4) mg/dl Glucose 119 H (70-99) mg/dl POC Glucose 121 H (70-99) Calcium 8.0 L (8.5-10.1) mg/dl Magnesium 1.7 L (1.8-2.4) mg/dl U Random Total Protein (0-11.9) mg/dl Protein/Creatinin Ratio (0-0.2) 05/07/18 05/07/18 05/07/18 Range/Units 11:27 16:07 16:08 RBC (4.7-6.1) M/uL Hgb (14.0-18.0) g/dL Hct (42-52) % MPV (7.4-10.4) fL BUN (7-18) mg/dl Creatinine (0.6-1.4) mg/dl Glucose (70-99) mg/dl POC Glucose 216 H 64 L* 60 L* (70-99) Calcium (8.5-10.1) mg/dl Magnesium (1.8-2.4) mg/dl U Random Total Protein (0-11.9) mg/dl Protein/Creatinin Ratio (0-0.2) Diagnostic Findings kub> no intraabdominal pathology renal u/s> 1. No hydronephrosis. 2. Unremarkable sonographic appearance of the kidneys. 3. Mild bladder wall thickening.
[2018-05-07] MEDS ORDERED: FOSAPREPITANT DIMEGLUMINE 115 MG in 0.9 % SODIUM CHLORIDE 111.2 ML IV ONE (11:30)
--- NOTE | 2018-05-07 13:01 | Gastrointestinal Consultation ---
Date of Consultation May 07, 2018 Assessment & Plan (1) Gastroparesis: Pt is a 52 y/o male w hx of DM II, gastroparesis s/p gastric pacemaker placement currently seen for N/V. However this AM he reports not having any more n/v, or abd pain, asking for more solid food. - Will give one dose of Emend 115mg IV x 1 dose. - Continue Protonix 40mg daily - Ok to advance to FL diet and advance to solids as tolerated; but if he is having n/v, please keep only on CL diet at most. - Obtain KUB (no abd imaging done since admitted) to r/o obstruction but this seems less likely - Check stool cx and Cdiff if having loose stools - GI will sign off, call if new questions/concerns arise. Present on Admission?: Yes Supervising Physician Co-Signing Physician Notes I have seen and examined the patient with LINDSAY Martell. 52 yo male with a history of diabetes, known gastroparesis s/p gastric pacemaker in the past, admitted with chest pain that has now been worked up. Agree with further plan of care as per above. History of Present Illness Reason for Consultation: Nausea, gastroparesis Requesting Physician: Dr. Stephon Vernon Attending Physician: Dr. Malia James History of Present Illness Pt is a 52 y/o male w PMHx of DM, autoimmune dysfunction, diabetic gastroparesis , s/p gastric pacemaker placement, s/p intrathecal pump for neuropathy, hx of pancreatitis, gastritis, HTN, hx of lung ca s/p SHAWN resection who was taken to ED for symptoms of CP and SOB, desaturations. He is currently stable on RA, been evaluated by Cardiology, chest pain reproducile, suspected to non cardiac origin. He's been having several bouts of vomiting and chest pain may be related to muscle strain. Gi consulted for nausea and vomiting. Pt well known to our service. In the past he's EGD evidence of esophagitis, and gastritis. He' s had few flares of his gastroparesis, and responded well with Emend. His insurance did cover PO Emend once but no longer now and it's too expensive for him to pay by himself. He is currently taking Zofran on PRN basis. He reports overnight had n/v, and also loose stools w ? blood clots in stools. RN tested stool for heme and it came back negative. Denies any abd pain. Said no more n/v this AM. Was asking for more solid meals instead of CL diet. Labs reviewed in chart. Allergies Allergy/AdvReac Type Severity Reaction Status Date / Time bee venom protein (honey bee) Allergy Mild SWELLING Verified 05/05/18 21:24 AT SITE, SOB Penicillins Allergy Unknown "SINCE Unverified 05/05/18 21:24 "-Amoxicillin metoclopramide AdvReac Unknown hallucinati Verified 05/05/18 21:24 ons Home Medications Home Medications Medication Instructions Recorded Confirmed Type acetaminophen [Acetaminophen Extra 1,000 mg PO Q6H PRN 05/05/18 05/05/18 History Strength] albuterol sulfate 2 puff INHALATION Q4H PRN 05/05/18 05/05/18 History amlodipine 5 mg PO DAILY 05/05/18 05/05/18 History aspirin [Aspirin Low Dose] 81 mg PO DAILY 05/05/18 05/05/18 History epinephrine [EpiPen] 0.3 mg IM Q3H PRN 05/05/18 05/05/18 History fentanyl 1 patch TOPICAL Q2D 05/05/18 05/05/18 History ferrous sulfate 325 mg PO DAILY 05/05/18 05/05/18 History gabapentin 300 mg PO TID 05/05/18 05/05/18 History insulin glargine [Basaglar KwikPen 15 unit SUBCUT HS 05/05/18 05/05/18 History U-100 Insulin] insulin lispro [Humalog U-100 1 sliding scale dose SUBCUT UD 05/05/18 05/05/18 History Insulin] levetiracetam [Keppra] 500 mg PO BID 05/05/18 05/05/18 History lisinopril 40 mg PO DAILY 05/05/18 05/05/18 History magnesium oxide 400 mg PO BID 05/05/18 05/05/18 History metoprolol tartrate 75 mg PO BID 05/05/18 05/05/18 History multivitamin 1 tab PO DAILY 05/05/18 05/05/18 History ondansetron HCl 8 mg PO Q8H PRN 05/05/18 05/05/18 History oxycodone 10 mg PO Q4H 05/05/18 05/05/18 History pantoprazole 40 mg PO DAILY 05/05/18 05/05/18 History polyethylene glycol 3350 [Miralax] 17 g PO DAILY 05/05/18 05/05/18 History prochlorperazine maleate 10 mg PO Q6H PRN 05/05/18 05/05/18 History trimethobenzamide 300 mg PO TID PRN 05/05/18 05/05/18 History Patient History Medical History Gastroparesis (Chronic) "s/p gastric stimulator" Hypertension (Chronic) Lung cancer (Chronic) "dx 01/2016; adenoCa SHAWN; + hilar nodes; s/p left upper lobectomy + chemo" On 08/05/16 16:31 Edie Mcfarland wrote "dx 01/2016; s/p L side lobectomy; currently undergoing chemo" Diabetic peripheral neuropathy (Chronic) Diabetic autonomic neuropathy (Chronic) Chronic pain (Chronic) Diabetes mellitus type 2, uncontrolled (Acute) Hypomagnesemia Surgical History History of cholecystectomy (Chronic) History of tonsillectomy and adenoidectomy (Chronic) Hx of total knee arthroplasty (Chronic) S/P lobectomy of lung (Chronic) "left upper lobectomy for adenoCa" On 08/05/16 16:30 Edie Mcfarland wrote "L side @ [facility] 05/25/16" H/O esophagogastroduodenoscopy (Chronic) "01/26/2015- LA Grade B reflux esophagitis, gastritis; Dr. Major" H/O colonoscopy (Chronic) " 04/22/2013- Mildly congested and erythematous mucosa in the ascending colon. One 1 mm polyp in the ascending colon resected. One benign appearing 1 mm polyp in the rectum resected. Internal hemorrhoids; Dr. Demarco" Social History Current Living Situation: Alone Other Information That Helps Us Care for You: No Feels Safe at Home: Yes Safety Concerns: Feels Safe At This Time Smoking Status: Never smoker Tobacco Type: smokeless tobacco Do You Dip or Chew Tobacco: Yes Hx Alcohol Use: No Hx Substance Use: Yes substance use type: prescription drug Last Used Substance : Just Prior to Arrival Beliefs That Will Affect Care: None Preferred Language: Sinhala Communication Ability: Effective Supervisor Stripping Required: No Review of Systems Constitutional: as per Subjective / HPI Respiratory: no cough and no dyspnea Cardiovascular: no chest pain, no lightheadedness and no edema Gastrointestinal: as per Subjective / HPI Physical Exam 2 Vital Signs (Past 24 Hours): Last Vital Signs Temp 36.5 C 05/07/18 11:04 Pulse 67 05/07/18 11:04 Resp 19 05/07/18 11:04 BP 111/70 05/07/18 11:04 Pulse Ox 100 05/07/18 11:04 Constitutional: WD/WN, vitals as above well groomed, cooperative and comfortable Eyes: PERRL, conjunctivae normal, anicteric sclerae ENMT: external ear and nose normal, oropharynx normal Respiratory: normal respiratory effort, lungs clear to auscultation Cardiovascular: RRR, no murmur, no edema Gastrointestinal (Abdomen): normal bowel sounds, soft, nontender, no hepatosplenomegaly Skin: no rashes, warm and dry no jaundice Neurologic: Motor/Sensory: no asterixis Psychiatric: A+Ox3, euthymic affect Lymphatic: no lymphedema Results & Data Laboratory Results Laboratory Results - last 72 hr 05/05/18 05/05/18 05/05/18 20:28 20:28 20:28 WBC 7.68 RBC 3.71 L Hgb 10.8 L Hct 31.4 L MCV 84.6 MCH 29.1 MCHC 34.4 RDW Std Deviation 41.4 RDW Coeff of Rik 13.6 Plt Count 230 MPV 10.7 H Immature Gran % (Auto) 0.4 Neut % (Auto) 70.9 Lymph % (Auto) 13.8 Leslie % (Auto) 12.9 Eos % (Auto) 1.3 Baso % (Auto) 0.7 Immature Gran # (Auto) 0.03 H Neut # (Auto) 5.45 Lymph # (Auto) 1.06 L Leslie # (Auto) 0.99 H Eos # (Auto) 0.10 Baso # (Auto) 0.05 PT 10.7 INR 1.1 APTT 23.9 PTT Ratio 0.9 D-Dimer 740 H* Sodium 128 L Potassium Chloride 93 L Carbon Dioxide 26 Anion Gap 10.0 BUN 46 H Creatinine 3.37 H Est Cr Clr Drug Dosing 24.8 Est GFR ( Amer) 23.0 Est GFR (Non-Af Amer) 19.8 BUN/Creatinine Ratio 13.6 Glucose 432 H* POC Glucose Estimat Average Glucose Hemoglobin A1c Osmolality Lactate Calcium 8.4 L Magnesium Total Bilirubin 0.4 AST ALT 18 Alkaline Phosphatase 89 CK-MB (CK-2) Troponin I < 0.015 NT-Pro-B Natriuret Pep 590 Total Protein 7.8 Albumin 3.4 Globulin 4.4 H Albumin/Globulin Ratio 0.8 L Beta-Hydroxybutyric Acd Urine Color Urine Appearance Urine pH Ur Specific [place] Urine Protein Urine Glucose (UA) Urine Ketones Urine Blood Urine Nitrite Urine Bilirubin Urine Urobilinogen Ur Leukocyte Esterase Urine WBC (Auto) Urine RBC (Auto) U Hyaline Cast (Auto) U Epithel Cells (Auto) Urine Bacteria (Auto) Ur Renal Epithelial Cell Urine Osmolality Ur Random Creatinine U Random Total Protein Ur Random Sodium Protein/Creatinin Ratio Stool Occult Bld Scrn Influenza Type A Ag Influenza Type B Ag 05/05/18 05/05/18 05/05/18 21:15 22:09 22:11 WBC RBC Hgb Hct MCV MCH MCHC RDW Std Deviation RDW Coeff of Rik Plt Count MPV Immature Gran % (Auto) Neut % (Auto) Lymph % (Auto) Leslie % (Auto) Eos % (Auto) Baso % (Auto) Immature Gran # (Auto) Neut # (Auto) Lymph # (Auto) Leslie # (Auto) Eos # (Auto) Baso # (Auto) PT INR APTT PTT Ratio D-Dimer Sodium Potassium 4.0 Chloride Carbon Dioxide Anion Gap BUN Creatinine Est Cr Clr Drug Dosing Est GFR ( Amer) Est GFR (Non-Af Amer) BUN/Creatinine Ratio Glucose POC Glucose Estimat Average Glucose Hemoglobin A1c Osmolality Lactate 1.4 Calcium Magnesium Total Bilirubin AST 8 L ALT Alkaline Phosphatase CK-MB (CK-2) Troponin I NT-Pro-B Natriuret Pep Total Protein Albumin Globulin Albumin/Globulin Ratio Beta-Hydroxybutyric Acd 2.36 Urine Color Urine Appearance Urine pH Ur Specific [place] Urine Protein Urine Glucose (UA) Urine Ketones Urine Blood Urine Nitrite Urine Bilirubin Urine Urobilinogen Ur Leukocyte Esterase Urine WBC (Auto) Urine RBC (Auto) U Hyaline Cast (Auto) U Epithel Cells (Auto) Urine Bacteria (Auto) Ur Renal Epithelial Cell Urine Osmolality Ur Random Creatinine U Random Total Protein Ur Random Sodium Protein/Creatinin Ratio Stool Occult Bld Scrn Influenza Type A Ag Neg for Influ A Influenza Type B Ag Neg for Influ B 05/06/18 05/06/18 05/06/18 02:15 02:32 02:33 WBC RBC Hgb Hct MCV MCH MCHC RDW Std Deviation RDW Coeff of Rik Plt Count MPV Immature Gran % (Auto) Neut % (Auto) Lymph % (Auto) Leslie % (Auto) Eos % (Auto) Baso % (Auto) Immature Gran # (Auto) Neut # (Auto) Lymph # (Auto) Leslie # (Auto) Eos # (Auto) Baso # (Auto) PT INR APTT PTT Ratio D-Dimer Sodium Potassium Chloride Carbon Dioxide Anion Gap BUN Creatinine Est Cr Clr Drug Dosing Est GFR ( Amer) Est GFR (Non-Af Amer) BUN/Creatinine Ratio Glucose POC Glucose 149 H Estimat Average Glucose Hemoglobin A1c Osmolality 293 Lactate Calcium Magnesium Total Bilirubin AST ALT Alkaline Phosphatase CK-MB (CK-2) Troponin I < 0.015 NT-Pro-B Natriuret Pep Total Protein Albumin Globulin Albumin/Globulin Ratio Beta-Hydroxybutyric Acd Urine Color Urine Appearance Urine pH Ur Specific [place] Urine Protein Urine Glucose (UA) Urine Ketones Urine Blood Urine Nitrite Urine Bilirubin Urine Urobilinogen Ur Leukocyte Esterase Urine WBC (Auto) Urine RBC (Auto) U Hyaline Cast (Auto) U Epithel Cells (Auto) Urine Bacteria (Auto) Ur Renal Epithelial Cell Urine Osmolality Ur Random Creatinine U Random Total Protein Ur Random Sodium Protein/Creatinin Ratio Stool Occult Bld Scrn Influenza Type A Ag Influenza Type B Ag 05/06/18 05/06/18 05/06/18 05:20 05:20 05:20 WBC RBC Hgb Hct MCV MCH MCHC RDW Std Deviation RDW Coeff of Rik Plt Count MPV Immature Gran % (Auto) Neut % (Auto) Lymph % (Auto) Leslie % (Auto) Eos % (Auto) Baso % (Auto) Immature Gran # (Auto) Neut # (Auto) Lymph # (Auto) Leslie # (Auto) Eos # (Auto) Baso # (Auto) PT INR APTT PTT Ratio D-Dimer Sodium Potassium Chloride Carbon Dioxide Anion Gap BUN Creatinine Est Cr Clr Drug Dosing Est GFR ( Amer) Est GFR (Non-Af Amer) BUN/Creatinine Ratio Glucose POC Glucose Estimat Average Glucose Hemoglobin A1c Osmolality Lactate Calcium Magnesium Total Bilirubin AST ALT Alkaline Phosphatase CK-MB (CK-2) Troponin I NT-Pro-B Natriuret Pep Total Protein Albumin Globulin Albumin/Globulin Ratio Beta-Hydroxybutyric Acd Urine Color Yellow Urine Appearance Cloudy H Urine pH 5.0 Ur Specific [place] 1.025 Urine Protein 3+ H Urine Glucose (UA) 3+ H Urine Ketones Trace H Urine Blood Trace H Urine Nitrite Negative Urine Bilirubin Negative Urine Urobilinogen Negative Ur Leukocyte Esterase Negative Urine WBC (Auto) 5-10 H Urine RBC (Auto) 5-10 H U Hyaline Cast (Auto) 10-30 H U Epithel Cells (Auto) >30 H Urine Bacteria (Auto) Negative Ur Renal Epithelial Cell Not Reportable Urine Osmolality 445 L Ur Random Creatinine U Random Total Protein Ur Random Sodium 17 Protein/Creatinin Ratio Stool Occult Bld Scrn Influenza Type A Ag Influenza Type B Ag 05/06/18 05/06/18 05/06/18 05:25 05:25 05:25 WBC 6.99 RBC 3.88 L Hgb 11.1 L Hct 32.6 L MCV 84.0 MCH 28.6 MCHC 34.0 RDW Std Deviation 41.2 RDW Coeff of Rik 13.7 Plt Count 199 MPV 10.0 Immature Gran % (Auto) 0.4 Neut % (Auto) 53.1 Lymph % (Auto) 30.5 Leslie % (Auto) 11.2 Eos % (Auto) 4.4 Baso % (Auto) 0.4 Immature Gran # (Auto) 0.03 H Neut # (Auto) 3.71 Lymph # (Auto) 2.13 Leslie # (Auto) 0.78 H Eos # (Auto) 0.31 Baso # (Auto) 0.03 PT INR APTT PTT Ratio D-Dimer Sodium 134 L Potassium 3.6 Chloride 101 Carbon Dioxide 26 Anion Gap 7.0 BUN 45 H Creatinine 2.98 H D Est Cr Clr Drug Dosing 28.1 Est GFR ( Amer) 26.7 Est GFR (Non-Af Amer) 23.0 BUN/Creatinine Ratio 15.0 Glucose 174 H POC Glucose Estimat Average Glucose 209 Hemoglobin A1c 8.9 H Osmolality Lactate Calcium 8.5 Magnesium 1.9 Total Bilirubin AST ALT Alkaline Phosphatase CK-MB (CK-2) 10.5 H Troponin I NT-Pro-B Natriuret Pep Total Protein Albumin Globulin Albumin/Globulin Ratio Beta-Hydroxybutyric Acd Urine Color Urine Appearance Urine pH Ur Specific [place] Urine Protein Urine Glucose (UA) Urine Ketones Urine Blood Urine Nitrite Urine Bilirubin Urine Urobilinogen Ur Leukocyte Esterase Urine WBC (Auto) Urine RBC (Auto) U Hyaline Cast (Auto) U Epithel Cells (Auto) Urine Bacteria (Auto) Ur Renal Epithelial Cell Urine Osmolality Ur Random Creatinine U Random Total Protein Ur Random Sodium Protein/Creatinin Ratio Stool Occult Bld Scrn Influenza Type A Ag Influenza Type B Ag 05/06/18 05/06/18 05/06/18 06:05 09:58 12:00 WBC RBC Hgb Hct MCV MCH MCHC RDW Std Deviation RDW Coeff of Rik Plt Count MPV Immature Gran % (Auto) Neut % (Auto) Lymph % (Auto) Leslie % (Auto) Eos % (Auto) Baso % (Auto) Immature Gran # (Auto) Neut # (Auto) Lymph # (Auto) Leslie # (Auto) Eos # (Auto) Baso # (Auto) PT INR APTT PTT Ratio D-Dimer Sodium 135 L Potassium 3.6 Chloride 102 Carbon Dioxide 25 Anion Gap 8.0 BUN 44 H Creatinine 2.80 H Est Cr Clr Drug Dosing 29.9 Est GFR ( Amer) 28.8 Est GFR (Non-Af Amer) 24.8 BUN/Creatinine Ratio 15.6 Glucose 183 H POC Glucose 160 H 217 H Estimat Average Glucose Hemoglobin A1c Osmolality Lactate Calcium 8.1 L Magnesium Total Bilirubin AST ALT Alkaline Phosphatase CK-MB (CK-2) Troponin I NT-Pro-B Natriuret Pep Total Protein Albumin Globulin Albumin/Globulin Ratio Beta-Hydroxybutyric Acd Urine Color Urine Appearance Urine pH Ur Specific [place] Urine Protein Urine Glucose (UA) Urine Ketones Urine Blood Urine Nitrite Urine Bilirubin Urine Urobilinogen Ur Leukocyte Esterase Urine WBC (Auto) Urine RBC (Auto) U Hyaline Cast (Auto) U Epithel Cells (Auto) Urine Bacteria (Auto) Ur Renal Epithelial Cell Urine Osmolality Ur Random Creatinine U Random Total Protein Ur Random Sodium Protein/Creatinin Ratio Stool Occult Bld Scrn Influenza Type A Ag Influenza Type B Ag 05/06/18 05/06/18 05/06/18 15:52 16:10 18:50 WBC RBC Hgb Hct MCV MCH MCHC RDW Std Deviation RDW Coeff of Rik Plt Count MPV Immature Gran % (Auto) Neut % (Auto) Lymph % (Auto) Leslie % (Auto) Eos % (Auto) Baso % (Auto) Immature Gran # (Auto) Neut # (Auto) Lymph # (Auto) Leslie # (Auto) Eos # (Auto) Baso # (Auto) PT INR APTT PTT Ratio D-Dimer Sodium 135 L Potassium 3.6 Chloride 103 Carbon Dioxide 25 Anion Gap 7.0 BUN 40 H Creatinine 2.44 H D Est Cr Clr Drug Dosing 34.3 Est GFR ( Amer) 34.0 Est GFR (Non-Af Amer) 29.3 BUN/Creatinine Ratio 16.4 Glucose 90 POC Glucose 84 Estimat Average Glucose Hemoglobin A1c Osmolality Lactate Calcium 8.1 L Magnesium Total Bilirubin AST ALT Alkaline Phosphatase CK-MB (CK-2) Troponin I NT-Pro-B Natriuret Pep Total Protein Albumin Globulin Albumin/Globulin Ratio Beta-Hydroxybutyric Acd Urine Color Urine Appearance Urine pH Ur Specific [place] Urine Protein Urine Glucose (UA) Urine Ketones Urine Blood Urine Nitrite Urine Bilirubin Urine Urobilinogen Ur Leukocyte Esterase Urine WBC (Auto) Urine RBC (Auto) U Hyaline Cast (Auto) U Epithel Cells (Auto) Urine Bacteria (Auto) Ur Renal Epithelial Cell Urine Osmolality Ur Random Creatinine 166.0 U Random Total Protein 178.7 H Ur Random Sodium Protein/Creatinin Ratio 1.1 H Stool Occult Bld Scrn Influenza Type A Ag Influenza Type B Ag 05/06/18 05/06/18 05/07/18 20:23 22:15 00:01 WBC RBC Hgb Hct MCV MCH MCHC RDW Std Deviation RDW Coeff of Rik Plt Count MPV Immature Gran % (Auto) Neut % (Auto) Lymph % (Auto) Leslie % (Auto) Eos % (Auto) Baso % (Auto) Immature Gran # (Auto) Neut # (Auto) Lymph # (Auto) Leslie # (Auto) Eos # (Auto) Baso # (Auto) PT INR APTT PTT Ratio D-Dimer Sodium Potassium Chloride Carbon Dioxide Anion Gap BUN Creatinine Est Cr Clr Drug Dosing Est GFR ( Amer) Est GFR (Non-Af Amer) BUN/Creatinine Ratio Glucose POC Glucose 310 H 90 Estimat Average Glucose Hemoglobin A1c Osmolality Lactate Calcium Magnesium Total Bilirubin AST ALT Alkaline Phosphatase CK-MB (CK-2) Troponin I NT-Pro-B Natriuret Pep Total Protein Albumin Globulin Albumin/Globulin Ratio Beta-Hydroxybutyric Acd Urine Color Urine Appearance Urine pH Ur Specific [place] Urine Protein Urine Glucose (UA) Urine Ketones Urine Blood Urine Nitrite Urine Bilirubin Urine Urobilinogen Ur Leukocyte Esterase Urine WBC (Auto) Urine RBC (Auto) U Hyaline Cast (Auto) U Epithel Cells (Auto) Urine Bacteria (Auto) Ur Renal Epithelial Cell Urine Osmolality Ur Random Creatinine U Random Total Protein Ur Random Sodium Protein/Creatinin Ratio Stool Occult Bld Scrn Negative Influenza Type A Ag Influenza Type B Ag 05/07/18 05/07/18 05/07/18 04:11 05:38 05:38 WBC 7.23 RBC 3.37 L Hgb 9.9 L Hct 28.6 L MCV 84.9 MCH 29.4 MCHC 34.6 RDW Std Deviation 42.6 RDW Coeff of Rik 13.7 Plt Count 196 MPV 10.6 H Immature Gran % (Auto) 0.1 Neut % (Auto) 57.5 Lymph % (Auto) 29.5 Leslie % (Auto) 6.6 Eos % (Auto) 5.7 Baso % (Auto) 0.6 Immature Gran # (Auto) 0.01 Neut # (Auto) 4.16 Lymph # (Auto) 2.13 Leslie # (Auto) 0.48 Eos # (Auto) 0.41 Baso # (Auto) 0.04 PT INR APTT PTT Ratio D-Dimer Sodium 137 Potassium 3.6 Chloride 106 Carbon Dioxide 23 Anion Gap 8.0 BUN 38 H Creatinine 2.54 H Est Cr Clr Drug Dosing 32.9 Est GFR ( Amer) 32.4 Est GFR (Non-Af Amer) 27.9 BUN/Creatinine Ratio 14.8 Glucose 119 H POC Glucose 110 H Estimat Average Glucose Hemoglobin A1c Osmolality Lactate Calcium 8.0 L Magnesium 1.7 L Total Bilirubin AST ALT Alkaline Phosphatase CK-MB (CK-2) Troponin I NT-Pro-B Natriuret Pep Total Protein Albumin Globulin Albumin/Globulin Ratio Beta-Hydroxybutyric Acd Urine Color Urine Appearance Urine pH Ur Specific [place] Urine Protein Urine Glucose (UA) Urine Ketones Urine Blood Urine Nitrite Urine Bilirubin Urine Urobilinogen Ur Leukocyte Esterase Urine WBC (Auto) Urine RBC (Auto) U Hyaline Cast (Auto) U Epithel Cells (Auto) Urine Bacteria (Auto) Ur Renal Epithelial Cell Urine Osmolality Ur Random Creatinine U Random Total Protein Ur Random Sodium Protein/Creatinin Ratio Stool Occult Bld Scrn Influenza Type A Ag Influenza Type B Ag 05/07/18 05/07/18 07:15 11:27 WBC RBC Hgb Hct MCV MCH MCHC RDW Std Deviation RDW Coeff of Rik Plt Count MPV Immature Gran % (Auto) Neut % (Auto) Lymph % (Auto) Leslie % (Auto) Eos % (Auto) Baso % (Auto) Immature Gran # (Auto) Neut # (Auto) Lymph # (Auto) Leslie # (Auto) Eos # (Auto) Baso # (Auto) PT INR APTT PTT Ratio D-Dimer Sodium Potassium Chloride Carbon Dioxide Anion Gap BUN Creatinine Est Cr Clr Drug Dosing Est GFR ( Amer) Est GFR (Non-Af Amer) BUN/Creatinine Ratio Glucose POC Glucose 121 H 216 H Estimat Average Glucose Hemoglobin A1c Osmolality Lactate Calcium Magnesium Total Bilirubin AST ALT Alkaline Phosphatase CK-MB (CK-2) Troponin I NT-Pro-B Natriuret Pep Total Protein Albumin Globulin Albumin/Globulin Ratio Beta-Hydroxybutyric Acd Urine Color Urine Appearance Urine pH Ur Specific [place] Urine Protein Urine Glucose (UA) Urine Ketones Urine Blood Urine Nitrite Urine Bilirubin Urine Urobilinogen Ur Leukocyte Esterase Urine WBC (Auto) Urine RBC (Auto) U Hyaline Cast (Auto) U Epithel Cells (Auto) Urine Bacteria (Auto) Ur Renal Epithelial Cell Urine Osmolality Ur Random Creatinine U Random Total Protein Ur Random Sodium Protein/Creatinin Ratio Stool Occult Bld Scrn Influenza Type A Ag Influenza Type B Ag
--- NOTE | 2018-05-07 13:26 | XRay Report ---
XR KUB CLINICAL HISTORY: 52 years-old Male presenting with nausea, vomiting. TECHNIQUE: Single supine view of the abdomen was obtained. COMPARISON: 05/16/2017. FINDINGS: Cholecystectomy clips noted. Implanted medical administrative specialist with leads to the region of the gastric antrum. Leads are in a different position than on prior exam. Mild stool burden. Nonobstructive bowel gas pa ttern. No gross pneumoperitoneum. Allowing for bowel gas and stool, no calcifications to suggest nephrolithiasis. Bone island noted in the left femoral neck. Lung bases clear. IMPRESSION: 1. No acute intra-abdominal pathology. 2. Gastric stimulator leads now project over the gastric antrum, which represents a change from prio r exam. Electronically signed by: Ronnell Renee M.D. 05/07/2018 1:25 PM
--- NOTE | 2018-05-07 14:36 | Hospitalist Progress Note ---
Date of Service May 07, 2018 Assessment & Plan (1) IVAN (acute kidney injury): Patient with acute kidney injury on CKD likely due to prerenal azotemia in setting of diarrhea and vomiting. Urinalysis showed concentrated urine and a urine sodium of 17. crea improving from 3.3 to 2.5 continue Lactated Ringers 125cc/hr appreciate Nephro consult (2) Acute hyponatremia: Patient admitted with the sodium of 128. Likely secondary to loss from GI tract Na improved to 137 (3) Nausea and vomiting: KUB Xray: IMPRESSION: 1. No acute intra-abdominal pathology. 2. Gastric stimulator leads now project over the gastric antrum, which represents a change from prior exam. - evaluated by GI given Emend symptoms improving diet advanced to full liquids monitor (4) Gastroparesis: Has history ongoing gastroparesis secondary to diabetes Has a gastric stimulator management as noted above (5) Acute dyspnea: Patient admitted with shortness of breath. Chest x-ray no signs of volume overload. no pneumonia and/or CHF identified comfortable, saturating well on room air monitor (6) Hypertension: Patient with hypertension controlled on metoprolol and lisinopril. Lisinopril was on hold due to acute kidney injury. BP stable Continue amlodipine and metoprolol. (7) Seizure disorder: Last seizures more than a month ago PO Keppra transitioned to IV Keppra until PO intake is more consistent (8) Diabetic peripheral neuropathy: Has severe peripheral neuropathy chronic (9) Chest pain: Complained of exertional chest pain EKG and cardiac enzymes Echo; EF was 55-60%, moderate concentric LVH with sigmoid septum no LV or motion abnormality and grade 1 diastolic dysfunction Appreciate cardiology input Chest pain seems to be noncardiac (10) DVT prophylaxis: SCDs, early ambulation (11) Discharge planning issues: anticipate d/c home when medically stable Subjective ff up for nausea/vomiting seen sitting up in bed, parents visiting at the bedside comfortable, not in distress states he feels improved compared to yesterday had nausea this AM, received Emend, none since tolerated liquid diet for lunch SOB improving has chronic b/l leg pain ' denies other symptoms Physical Exam 2 Vital Signs (Past 24 Hours): Last Vital Signs Temp 36.5 C 05/07/18 11:04 Pulse 67 05/07/18 11:04 Resp 19 05/07/18 11:04 BP 111/70 05/07/18 11:04 Pulse Ox 100 05/07/18 11:04 Physical Exam: General- oriented x 3, not in distress, speaks in sentences with no effort or accessory muscle use Head- atraumatic Eyes- PERRL, EOMI, anicteric ENT- oropharynx clear Neck- supple, no JVD, no adenopathy, no thyromegaly; carotids +2/2, no bruits appreciated Lungs- clear to auscultation bilaterally, no rales/wheezes Heart- normal rate, regular rhythm; no murmur, no gallop, no rub appreciated Abdomen- normal bowel sounds, nondistended, soft, nontender, no masses or hepatosplenomegaly Extremities- no pretibial edema, no calf tenderness; peripheral pulses intact Neuro- alert, oriented x 3; CN 2-12 grossly intact; motor 5/5 bilaterally; sensation 100% on all extremities; no other gross focal neurologic deficits Skin- warm & dry Results & Data Laboratory Results Laboratory Results - last 24 hr 05/06/18 05/06/18 05/06/18 15:52 16:10 18:50 WBC RBC Hgb Hct MCV MCH MCHC RDW Std Deviation RDW Coeff of Rik Plt Count MPV Immature Gran % (Auto) Neut % (Auto) Lymph % (Auto) Brown % (Auto) Eos % (Auto) Baso % (Auto) Immature Gran # (Auto) Neut # (Auto) Lymph # (Auto) Brown # (Auto) Eos # (Auto) Baso # (Auto) Sodium 135 L Potassium 3.6 Chloride 103 Carbon Dioxide 25 Anion Gap 7.0 BUN 40 H Creatinine 2.44 H D Est Cr Clr Drug Dosing 34.3 Est GFR ( Amer) 34.0 Est GFR (Non-Af Amer) 29.3 BUN/Creatinine Ratio 16.4 Glucose 90 POC Glucose 84 Calcium 8.1 L Magnesium Ur Random Creatinine 166.0 U Random Total Protein 178.7 H Protein/Creatinin Ratio 1.1 H Stool Occult Bld Scrn 05/06/18 05/06/18 05/07/18 20:23 22:15 00:01 WBC RBC Hgb Hct MCV MCH MCHC RDW Std Deviation RDW Coeff of Rik Plt Count MPV Immature Gran % (Auto) Neut % (Auto) Lymph % (Auto) Brown % (Auto) Eos % (Auto) Baso % (Auto) Immature Gran # (Auto) Neut # (Auto) Lymph # (Auto) Brown # (Auto) Eos # (Auto) Baso # (Auto) Sodium Potassium Chloride Carbon Dioxide Anion Gap BUN Creatinine Est Cr Clr Drug Dosing Est GFR ( Amer) Est GFR (Non-Af Amer) BUN/Creatinine Ratio Glucose POC Glucose 310 H 90 Calcium Magnesium Ur Random Creatinine U Random Total Protein Protein/Creatinin Ratio Stool Occult Bld Scrn Negative 05/07/18 05/07/18 05/07/18 04:11 05:38 05:38 WBC 7.23 RBC 3.37 L Hgb 9.9 L Hct 28.6 L MCV 84.9 MCH 29.4 MCHC 34.6 RDW Std Deviation 42.6 RDW Coeff of Rik 13.7 Plt Count 196 MPV 10.6 H Immature Gran % (Auto) 0.1 Neut % (Auto) 57.5 Lymph % (Auto) 29.5 Brown % (Auto) 6.6 Eos % (Auto) 5.7 Baso % (Auto) 0.6 Immature Gran # (Auto) 0.01 Neut # (Auto) 4.16 Lymph # (Auto) 2.13 Brown # (Auto) 0.48 Eos # (Auto) 0.41 Baso # (Auto) 0.04 Sodium 137 Potassium 3.6 Chloride 106 Carbon Dioxide 23 Anion Gap 8.0 BUN 38 H Creatinine 2.54 H Est Cr Clr Drug Dosing 32.9 Est GFR ( Amer) 32.4 Est GFR (Non-Af Amer) 27.9 BUN/Creatinine Ratio 14.8 Glucose 119 H POC Glucose 110 H Calcium 8.0 L Magnesium 1.7 L Ur Random Creatinine U Random Total Protein Protein/Creatinin Ratio Stool Occult Bld Scrn 05/07/18 05/07/18 07:15 11:27 WBC RBC Hgb Hct MCV MCH MCHC RDW Std Deviation RDW Coeff of Rik Plt Count MPV Immature Gran % (Auto) Neut % (Auto) Lymph % (Auto) Brown % (Auto) Eos % (Auto) Baso % (Auto) Immature Gran # (Auto) Neut # (Auto) Lymph # (Auto) Brown # (Auto) Eos # (Auto) Baso # (Auto) Sodium Potassium Chloride Carbon Dioxide Anion Gap BUN Creatinine Est Cr Clr Drug Dosing Est GFR ( Amer) Est GFR (Non-Af Amer) BUN/Creatinine Ratio Glucose POC Glucose 121 H 216 H Calcium Magnesium Ur Random Creatinine U Random Total Protein Protein/Creatinin Ratio Stool Occult Bld Scrn _ (1) Chest pain Chest pain type: unspecified Ischemic chest pain type: Qualified Code(s): R07.9 - Chest pain, unspecified
[2018-05-07] MEDS: LACTATED RINGER'S 1,000 ML IV SCH ×2 (14:58→22:47)
[2018-05-07] MEDS: INSULIN GLARGINE SOLOSTAR 100 UNITS/ML 3 ML PEN SC SCH (20:54)
[2018-05-08] MEDS: CHECK FENTANYL PATCH PLACEMENT SCH ×4 (04:07→23:51)
[2018-05-08 06:31] LABS: BUN Creatinine Ratio 11.8 (10-20); Calcium 7.8 mg/dl (8.5-10.1); Creatinine Clr Calc Pharmacy 36.8 ml/min; Est GFR (African American) 37.1; Potassium 3.9 mmol/L (3.5-5.1)
[2018-05-08] MEDS: INSULIN ASPART 100 UNITS/ML 3 ML PEN SC SCH ×5 (07:40→21:09)
--- NOTE | 2018-05-08 07:41 | Nephrology Progress Note ---
Date of Service May 08, 2018 Assessment & Plan (1) IVAN (acute kidney injury): acute kidney injury on CKD likely due to prerenal azotemia in setting of diarrhea and vomiting. We do not have a clear baseline but creatinine was 1.4- 1.6 14 mos ago; up to 1.11 Sep 2017. Patient has had multiple episodes of IVAN in setting of GI losses. Creatinine today is down to 2.3 from 2.5 yesterday from 2.9 and 3.3 day before. Urinalysis showed concentrated urine and a urine sodium of 17. electrolyte disorders such as low Na on presentation corrected appropriately -cont Ringer's lactate at 125 mL/h. -? if we are missing I/O> minimal uop charted; low threshold for bladder scan if concerns -Monitor input / output. (2) Hypertension: Patient with hypertension controlled on metoprolol and lisinopril as outpatient. Lisinopril was on hold due to acute kidney injury. bp past 24 hrs quite labile but thereally controlled (range systolic 80s-170s, mostly 110s) -stop amlodipine -keep holding ACEI -cont metoprolol. Subjective states he now has PNA. c/o ambulatory dysfunction and not being allowed to walk. no chest pain/palpitations. stable chronic paresthesias. no rash. does not mention voiding concerns today. intermittent n/v/diarrhea/ abd pain. minimal edema. no f/c; + hunger. chronic back pain. Physical Exam 2 Vital Signs (Past 24 Hours): Last Vital Signs Temp 36.9 C 05/08/18 03:03 Pulse 83 05/08/18 03:03 Resp 17 05/08/18 03:03 BP 143/88 H 05/08/18 03:03 Pulse Ox 100 05/08/18 03:03 Constitutional: well developed and well nourished on RA sitting on side of bed; tremulous; no cough Eyes: EOM intact bilaterally ENMT: Ears: no external ear abnormality Nose: no external nose abnormality Mouth: + dry oral mucous membranes Neck: no nuchal rigidity Respiratory: normal respiratory effort Auscultation: + diminished lung sounds Cardiovascular: RRR, no murmur, no edema Gastrointestinal (Abdomen): Inspection/Auscultation: normal bowel sounds Percussion/Palpation: + abdomen tender (no rebound/guarding; not reproducible) and abdomen soft Musculoskeletal: Extremities: strength 5/5 throughout Skin: no rashes, warm and dry Psychiatric: Orientation: alert and oriented x 3 Apperance: appropriately groomed Speech: + pressured speech Affect: + anxious affect Mood: + anxious mood Thought Process: + flight of ideas Genitourinary: no ruiz Results & Data Laboratory Results Abnormal lab results 05/07/18 05/08/18 05/08/18 Range/Units 20:38 05:28 07:29 D-Dimer (0-500) ug/L FEU Chloride 108 H (98-107) mmol/L BUN 27 H (7-18) mg/dl Creatinine 2.27 H (0.6-1.4) mg/dl Glucose 180 H (70-99) mg/dl POC Glucose 225 H 133 H (70-99) Calcium 7.8 L (8.5-10.1) mg/dl 05/08/18 05/08/18 05/08/18 Range/Units 11:25 16:08 16:40 D-Dimer 1040 H* (0-500) ug/L FEU Chloride (98-107) mmol/L BUN (7-18) mg/dl Creatinine (0.6-1.4) mg/dl Glucose (70-99) mg/dl POC Glucose 110 H 53 L* (70-99) Calcium (8.5-10.1) mg/dl 05/08/18 05/08/18 05/08/18 Range/Units 17:02 17:21 17:23 D-Dimer (0-500) ug/L FEU Chloride (98-107) mmol/L BUN (7-18) mg/dl Creatinine (0.6-1.4) mg/dl Glucose (70-99) mg/dl POC Glucose 49 L* 44 L* 45 L* (70-99) Calcium (8.5-10.1) mg/dl Diagnostic Findings 05/08 cxr IMPRESSION: Developing parenchymal infiltrate left mid to lower lung.
[2018-05-08] MEDS: LACTATED RINGER'S 1,000 ML IV SCH ×3 (07:50→22:18)
[2018-05-08] MEDS: POLYETHYLENE (MIRALAX) 17 GM PACK PO SCH (07:53)
[2018-05-08] MEDS: OXYCODONE HCL IR 5 MG TAB (IMMEDIATE RELEASE) PO PRN (08:05)
[2018-05-08] MEDS: ASPIRIN 81 MG ECTAB PO SCH (08:07)
[2018-05-08] MEDS: METOPROLOL TARTRATE 25 MG TAB PO SCH ×2 (08:07→21:08)
[2018-05-08] MEDS: FERROUS SULFATE 325 MG TAB PO SCH (08:07)
[2018-05-08] MEDS: GABAPENTIN 300 MG CAP PO SCH ×2 (08:07→14:14)
[2018-05-08] MEDS: MULTIVITAMIN TAB PO SCH (08:08)
[2018-05-08] MEDS: PANTOprazole 40 MG TAB PO SCH (08:08)
--- NOTE | 2018-05-08 09:28 | Pharmacy Report ---
Pharmacy Glycemic Short Note 2 - Date of Service May 08, 2018 - Glycemic Short BSG Results (Last 24 hours): 05/07/18 05/07/18 05/07/18 11:27 16:07 16:08 Glucose POC Glucose 216 H 64 L* 60 L* 05/07/18 05/07/18 05/08/18 16:34 20:38 05:28 Glucose 180 H POC Glucose 74 225 H 05/08/18 07:29 Glucose POC Glucose 133 H OUTPATIENT ANTIDIABETIC REGIMEN: * Basaglar 15 units SQ HS + Humalog SSI * A1c = 8.9 % 05/06/17 ASSESSMENT: * 52 yr old T2DM male admitted with chest pain, shortness of breath, IVAN and hyponatremia likely due to vomiting and diarrhea. * diet advanced to full liquids * BSGs continue to fluctuate with lunch and HS BSG > 200 mg/dL and dinner BSG below goal * BSG of 64 mg/dL yesterday at time of dinner check. Jeff was given orange juice. Repeat BSG was 74 mg/dL. * RN notes report patient has been hiding snacks in his PJs * Changes needed to insulin regimen: * Fasting BSG of 133 mg/dL is at goal. Continue current Lantus scale. * Post prandial BSGs continue to fluctuate. It appears that the patient experiences lower BSG after getting larger doses of correctional insulin, therefore I will loosen correction factor and increase the high end of goal range from 140 to 160 mg/dL. I will tighten carb ratio in an attempt to avoid BSG spike after breakfast. PLAN FOR INPATIENT GLYCEMIC CONTROL: * Basal insulin * Lantus 15-20 units SQ qHS * 15 units for BSG < 140 mg/dL * 20 units for BSG 140 mg/dL or more * Bolus insulin - tighten carb coverage, loosen correction factor * NovoLog per scale ACHS or Q6hrs while NPO * Increase Goal Range: Low 110 mg/dL - High 160 mg/dL * Correction Factor: 40 mg/dL/unit * Nutritional / Prandial insulin per carb ratio of 1 unit per 8 grams CHO consumed PLAN FOR DISCHARGE: * A1c of 8.9% is above goal based on patient age and comorbidities * Recommend follow up with outpatient provider for dose titration
--- NOTE | 2018-05-08 16:35 | XRay Report ---
XR chest 1V portable CLINICAL HISTORY: r/o pneumonia dyspnea COMPARISON STUDY: 05/05/2018 FINDINGS: Developing parenchymal infiltrate of the left mid to lower lung. Right lung is generally cl ear. Diaphragms smooth. Slight blunting left lateral costophrenic angle. IMPRESSION: Developing parenchymal infiltrate left mid to lower lung. The above report was generated using voice recognition software. It may contain grammatical, syntax or spelling errors. Electronically signed by: Fuad Betancourt M.D. 05/08/2018 4:34 PM
[2018-05-08] MEDS ORDERED: CONSULT PHARMACY STA (17:05)
[2018-05-08] MEDS ORDERED: CEFTRIAXONE PHARMACY CONSULT IN PROGRESS PRN (17:39)
--- NOTE | 2018-05-08 17:54 | Hospitalist Progress Note ---
Date of Service May 08, 2018 Assessment & Plan (1) IVAN (acute kidney injury): Patient with acute kidney injury on CKD likely due to prerenal azotemia in setting of diarrhea and vomiting. Urinalysis showed concentrated urine and a urine sodium of 17. crea improving from 3.3 to 2.2 continue Lactated Ringers 125cc/hr appreciate Nephro consult (2) Acute hyponatremia: Patient admitted with the sodium of 128. Likely secondary to loss from GI tract Na improved to 137 (3) Nausea and vomiting: KUB Xray: IMPRESSION: 1. No acute intra-abdominal pathology. 2. Gastric stimulator leads now project over the gastric antrum, which represents a change from prior exam. - evaluated by GI given Emend symptoms continue to improve Advance diet to regular diet tonight In place to have small meals (4) Gastroparesis: Has history ongoing gastroparesis secondary to diabetes Has a gastric stimulator management as noted above (5) Acute dyspnea: Patient admitted with shortness of breath. Chest x-ray no signs of volume overload. no pneumonia and/or CHF identified Reported increased productive cough, shortness of breath after exertion today Repeat chest x-ray showing possible left middle to lower lobe pneumonia D-dimer elevated 1000 Start empiric ceftriaxone and doxycycline Get sputum cultures Will order VQ scan and repeat Doppler of the lower extremities to rule out PE and DVT (6) Hypertension: Patient with hypertension controlled on metoprolol and lisinopril. Lisinopril was on hold due to acute kidney injury. BP stable Continue metoprolol for now, monitor BP (7) Seizure disorder: Last seizures more than a month ago PO Keppra resumed tonight (8) Diabetic peripheral neuropathy: Has severe peripheral neuropathy chronic (9) Chest pain: Complained of exertional chest pain EKG and cardiac enzymes Echo; EF was 55-60%, moderate concentric LVH with sigmoid septum no LV or motion abnormality and grade 1 diastolic dysfunction Appreciate cardiology input Chest pain seems to be noncardiac (10) DVT prophylaxis: SCDs, early ambulation Start heparin subcutaneous every 8 hours (11) Discharge planning issues: anticipate d/c home when medically stable Subjective Follow-up for acute renal failure, nausea vomiting Patient was noted to be very tired after walking in the hallways this afternoon Patient seen in his room, sleeping but easily awakened States he felt short of breath after walking, and also has been having productive cough since earlier today, with yellow sputum Denies chest pain, palpitations, dizziness Nausea and vomiting improved further, no BMs yet Tolerating liquid diet requesting to be advanced No problems voiding Denies other symptoms Physical Exam 2 Vital Signs (Past 24 Hours): Last Vital Signs Temp 36.4 C L 05/08/18 15:47 Pulse 85 05/08/18 15:47 Resp 18 05/08/18 15:47 BP 123/68 05/08/18 15:47 Pulse Ox 97 05/08/18 15:47 Physical Exam: General- oriented x 3, not in distress, speaks in sentences with no effort or accessory muscle use Eyes- anicteric Neck- no JVD Lungs- clear breath sounds bilaterally, no rales/wheezes Heart- normal rate, regular rhythm; no murmurs Abdomen- normal bowel sounds, nondistended, soft, nontender Extremities-mild bilateral lower leg edema edema, no calf tenderness Neuro- alert, oriented x 3; no gross focal neurologic deficits Skin- warm & dry Results & Data Laboratory Results Laboratory Results - last 24 hr 05/07/18 05/08/18 05/08/18 20:38 05:28 07:29 D-Dimer Sodium 137 Potassium 3.9 Chloride 108 H Carbon Dioxide 21 Anion Gap 8.0 BUN 27 H Creatinine 2.27 H Est Cr Clr Drug Dosing 36.8 Est GFR ( Amer) 37.1 Est GFR (Non-Af Amer) 32.0 BUN/Creatinine Ratio 11.8 Glucose 180 H POC Glucose 225 H 133 H Calcium 7.8 L Procalcitonin 05/08/18 05/08/18 05/08/18 11:25 16:08 16:08 D-Dimer 1040 H* Sodium Potassium Chloride Carbon Dioxide Anion Gap BUN Creatinine Est Cr Clr Drug Dosing Est GFR ( Amer) Est GFR (Non-Af Amer) BUN/Creatinine Ratio Glucose POC Glucose 110 H Calcium Procalcitonin 0.09 05/08/18 05/08/18 05/08/18 16:40 17:02 17:21 D-Dimer Sodium Potassium Chloride Carbon Dioxide Anion Gap BUN Creatinine Est Cr Clr Drug Dosing Est GFR ( Amer) Est GFR (Non-Af Amer) BUN/Creatinine Ratio Glucose POC Glucose 53 L* 49 L* 44 L* Calcium Procalcitonin 05/08/18 17:23 D-Dimer Sodium Potassium Chloride Carbon Dioxide Anion Gap BUN Creatinine Est Cr Clr Drug Dosing Est GFR ( Amer) Est GFR (Non-Af Amer) BUN/Creatinine Ratio Glucose POC Glucose 45 L* Calcium Procalcitonin _ (1) Chest pain Chest pain type: unspecified Ischemic chest pain type: Qualified Code(s): R07.9 - Chest pain, unspecified
[2018-05-08] MEDS ORDERED: cefTRIAXone SODIUM 2,000 MG in DEXTROSE 5% 50 ML IV SCH (18:00)
[2018-05-08] MEDS: IPRATROPIUM BROMIDE NEB SOLN 0.02% 2.5 ML VIAL NEB SCH (19:01)
[2018-05-08] MEDS: LEVALBUTEROL HCL 0.63 MG/3 ML NEB NEB SCH (19:01)
[2018-05-08] MEDS: DOXYCYCLINE HYCLATE 50 MG CAP PO SCH ×2 (19:07→22:17)
--- NOTE | 2018-05-08 19:07 | Ultrasound Report ---
US venous doppler LE BI HISTORY: Pain. Edema. r/o dvt COMPARISON STUDY: 05/06/2018 FINDINGS: There is normal compressibility, flow, and augmentation within the bilateral lower extremit y deep venous systems. IMPRESSION: No DVT within the right or left lower extremity. The above report was generated using voice recognition software. It may contain grammatical, syntax or spelling errors. Electronically signed by: Fuad Betancourt M.D. 05/08/2018 7:05 PM
--- NOTE | 2018-05-08 20:53 | Nuclear Medicine Report ---
NM pul vent and perfuse CLINICAL HISTORY: Dyspnea COMPARISON: None TECHNIQUE: For the ventilation portion of this exam, 32.2 mCi of DTPA was inhaled at 8:43 PM. Immed iately following inhalation, imaging of the chest was carried out in the anterior, posterior, left la teral, right lateral, LPO, RPO, TAMAZIGHT and KEMP projections. For the perfusion portion of exam, 4.3 mCi of technetium 99m MAA was injected IV at 8:53 PM. Immediately following injection, imaging of the jessi st was carried out in the same projections. FINDINGS: Generalized decrease in perfusion as well as ventilation throughout the left hemithorax. T his corresponds at least geographically with a diffuse parenchymal infiltrate seen on routine imaging . Study by definition is indeterminate. The right lung demonstrates uniform activity characteristics on the perfusion as well as ventilation. IMPRESSION: Indeterminate for pulmonary embolus. The above report was generated using voice recognition software. It may contain grammatical, syntax or spelling errors. Electronically signed by: Fuad Betancourt M.D. 05/08/2018 8:52 PM
[2018-05-08] MEDS: HEPARIN SOD 5,000 UNIT/0.5 ML VIAL SQ SCH (21:08)
[2018-05-08] MEDS: INSULIN GLARGINE SOLOSTAR 100 UNITS/ML 3 ML PEN SC SCH (21:09)
[2018-05-08] MEDS: levETIRAcetam 500 MG TAB PO SCH (22:17)
[2018-05-09] MEDS: IPRATROPIUM BROMIDE NEB SOLN 0.02% 2.5 ML VIAL NEB SCH ×4 (01:48→19:25)
[2018-05-09] MEDS: LEVALBUTEROL HCL 0.63 MG/3 ML NEB NEB SCH ×4 (01:48→19:26)
[2018-05-09] MEDS: HEPARIN SOD 5,000 UNIT/0.5 ML VIAL SQ SCH ×3 (05:23→20:29)
[2018-05-09] MEDS: OXYCODONE HCL IR 5 MG TAB (IMMEDIATE RELEASE) PO PRN ×2 (05:27→20:34)
[2018-05-09] MEDS: LACTATED RINGER'S 1,000 ML IV SCH ×3 (06:40→22:55)
[2018-05-09 07:24] LABS: BUN Creatinine Ratio 10.9 (10-20); Calcium 7.8 mg/dl (8.5-10.1); Creatinine Clr Calc Pharmacy 43.5 ml/min; Est GFR (African American) 45.4; Est GFR (Non-African American) 39.2; Potassium 3.7 mmol/L (3.5-5.1)
[2018-05-09] MEDS: CHECK FENTANYL PATCH PLACEMENT SCH ×3 (07:46→23:08)
[2018-05-09] MEDS: fentaNYL 100 MCG/HR TDSY TD SCH (07:46)
[2018-05-09] MEDS: FERROUS SULFATE 325 MG TAB PO SCH (07:47)
[2018-05-09] MEDS: ASPIRIN 81 MG ECTAB PO SCH (07:47)
[2018-05-09] MEDS: levETIRAcetam 500 MG TAB PO SCH ×2 (07:48→20:22)
[2018-05-09] MEDS: GABAPENTIN 300 MG CAP PO SCH ×2 (07:48→20:21)
[2018-05-09] MEDS: DOXYCYCLINE HYCLATE 50 MG CAP PO SCH ×2 (07:48→20:22)
[2018-05-09] MEDS: METOPROLOL TARTRATE 25 MG TAB PO SCH ×2 (07:49→20:22)
[2018-05-09] MEDS: MULTIVITAMIN TAB PO SCH (07:49)
[2018-05-09] MEDS: POLYETHYLENE (MIRALAX) 17 GM PACK PO SCH (07:49)
[2018-05-09] MEDS: PANTOprazole 40 MG TAB PO SCH (07:49)
[2018-05-09] MEDS: INSULIN ASPART 100 UNITS/ML 3 ML PEN SC SCH ×4 (07:51→20:27)
--- NOTE | 2018-05-09 11:18 | Pharmacy Report ---
Pharmacy Glycemic Short Note 2 - Date of Service May 09, 2018 - Glycemic Short BSG Results (Last 24 hours): 05/08/18 05/08/18 05/08/18 11:25 16:40 17:02 Glucose POC Glucose 110 H 53 L* 49 L* 05/08/18 05/08/18 05/08/18 17:21 17:23 18:13 Glucose POC Glucose 44 L* 45 L* 97 05/08/18 05/09/18 05/09/18 20:55 06:06 07:13 Glucose 81 POC Glucose 188 H 69 L* 05/09/18 07:14 Glucose POC Glucose 66 L* OUTPATIENT ANTIDIABETIC REGIMEN: * Basaglar 15 units SQ HS + Humalog SSI * A1c = 8.9 % 05/06/17 ASSESSMENT: * 52 yr old T2DM male admitted with chest pain, shortness of breath, IVAN and hyponatremia likely due to vomiting and diarrhea. * diet advanced to Type 2 DM * BSGs continue to fluctuate, hypoglycemia after lunch before dinner yesterday , likely due to too tight of CR * Blood sugar also falling overnight, but patient had a snack at bedtime last night with carb coverage so may have just been due to too much CR * RN notes report patient has been hiding snacks in his PJs * Changes needed to insulin regimen: * Loosen CR at this time, may also need to decrease Lantus if BSGs continue to fall overnight, Lantus is on scale so patient will receive reduced dose for BSG < 140mg/dl. Patient has received 20 units dose past 3 nights for BSG > 140mg/ dl. PLAN FOR INPATIENT GLYCEMIC CONTROL: * Basal insulin * Lantus 15-20 units SQ qHS * 15 units for BSG < 140 mg/dL * 20 units for BSG 140 mg/dL or more * Bolus insulin - loosen carb coverage * NovoLog per scale ACHS or Q6hrs while NPO * CHANGE Goal Range: Low 120 mg/dL - High 150 mg/dL * Correction Factor: 40 mg/dL/unit * LOOSEN: Nutritional / Prandial insulin per carb ratio of 1 unit per 15 grams CHO consumed PLAN FOR DISCHARGE: * A1c of 8.9% is above goal based on patient age and co-morbidities * Recommend follow up with outpatient provider for dose titration
--- NOTE | 2018-05-09 15:27 | Nephrology Progress Note ---
Date of Service May 09, 2018 Assessment & Plan (1) IVAN (acute kidney injury): nonoliguric progressively improving acute kidney injury on CKD likely due to prerenal azotemia in setting of diarrhea and vomiting. We do not have a clear baseline but creatinine was 1.4-1.6 14 mos ago; up to 1.11 Sep 2017, which is where he is today. Patient has had multiple episodes of IVAN in setting of GI losses. Creatinine today is down to 1.9 from 2.3 yesterday and from 2.5 day before 2.9 and 3.3 day before that. Urinalysis showed concentrated urine and a urine sodium of 17. electrolyte disorders such as low Na on presentation corrected appropriately -lower Ringer's lactate to 80 mL/h. -Monitor input / output. -daily bmp (2) Hypertension: Patient with hypertension controlled on metoprolol and lisinopril as outpatient. Lisinopril was on hold due to acute kidney injury. bp past 24 hrs quite labile but thereally controlled (range systolic 120-180s mostly 120-130s) -tomorrow am resume amlodipine -keep holding ACEI -cont metoprolol. Subjective seen on rounds this am at 0645. c/o sore throat. no sob, no cough. stable chronic back/joint pain. mild abd pain. no voiding c/o. no edema or palpitations. no rash. no focal numbness that's new or focal weakness. + po / good appetite and no F. recurrent low BG Physical Exam 2 Vital Signs (Past 24 Hours): Last Vital Signs Temp 36.7 C 05/09/18 11:35 Pulse 83 05/09/18 13:47 Resp 14 05/09/18 13:47 BP 160/88 H 05/09/18 11:35 Pulse Ox 98 05/09/18 13:47 Constitutional: well developed and well nourished lying in bed on RA; wakens fully; flat; nad Eyes: EOM intact bilaterally ENMT: Ears: no external ear abnormality Nose: no external nose abnormality Mouth: + dry oral mucous membranes Neck: no nuchal rigidity Respiratory: normal respiratory effort Auscultation: + diminished lung sounds Cardiovascular: RRR, no murmur, no edema Gastrointestinal (Abdomen): Inspection/Auscultation: normal bowel sounds Percussion/Palpation: + abdomen tender (no rebound/guarding; not reproducible) and abdomen soft Musculoskeletal: Extremities: strength 5/5 throughout Skin: no rashes, warm and dry lacerations ext finger surfaces healing Neurologic: villarreal, fluent speech Psychiatric: Orientation: alert and oriented x 3 Apperance: appropriately groomed Speech: + pressured speech Affect: + anxious affect Mood: + anxious mood Thought Process: + flight of ideas Genitourinary: no ruiz Results & Data Laboratory Results Abnormal lab results 05/08/18 05/08/18 05/08/18 Range/Units 16:08 16:40 17:02 D-Dimer 1040 H* (0-500) ug/L FEU BUN (7-18) mg/dl Creatinine (0.6-1.4) mg/dl POC Glucose 53 L* 49 L* (70-99) Calcium (8.5-10.1) mg/dl 05/08/18 05/08/18 05/08/18 Range/Units 17:21 17:23 20:55 D-Dimer (0-500) ug/L FEU BUN (7-18) mg/dl Creatinine (0.6-1.4) mg/dl POC Glucose 44 L* 45 L* 188 H (70-99) Calcium (8.5-10.1) mg/dl 05/09/18 05/09/18 05/09/18 Range/Units 06:06 07:13 07:14 D-Dimer (0-500) ug/L FEU BUN 21 H (7-18) mg/dl Creatinine 1.92 H D (0.6-1.4) mg/dl POC Glucose 69 L* 66 L* (70-99) Calcium 7.8 L (8.5-10.1) mg/dl
--- NOTE | 2018-05-09 15:33 | Hospitalist Progress Note ---
Date of Service May 09, 2018 Assessment & Plan (1) IVAN (acute kidney injury): Patient with acute kidney injury on CKD likely due to prerenal azotemia in setting of diarrhea and vomiting. Urinalysis showed concentrated urine and a urine sodium of 17. crea improving from 3.3 to 1.9 continue Lactated Ringers 125cc/hr appreciate Nephro consult (2) Acute hyponatremia: Patient admitted with the sodium of 128. Likely secondary to loss from GI tract Na improved to 137 (3) Nausea and vomiting: KUB Xray: IMPRESSION: 1. No acute intra-abdominal pathology. 2. Gastric stimulator leads now project over the gastric antrum, which represents a change from prior exam. - evaluated by GI given Emend symptoms continue to improve Advance diet to regular diet , tolerating well (4) Gastroparesis: Has history ongoing gastroparesis secondary to diabetes Has a gastric stimulator management as noted above (5) Pneumonia: Patient admitted with shortness of breath. Chest x-ray no signs of volume overload. no pneumonia and/or CHF identified 05/08/18 Reported increased productive cough, shortness of breath after exertion Repeat chest x-ray showing possible left middle to lower lobe pneumonia D-dimer elevated 1000 Start empiric ceftriaxone and doxycycline Get sputum cultures VQ scan: indeterminate Doppler of the lower extremities: no DVT 05/09/18 still has dyspnea, cough CT chest ordered broaden antbiotics from Ceftri to Zosyn + Doxy add Mucomyst D dimer elevated, VQ scan indeterminate, Doppler US of legs: negative will consult Pulmonology [facility] (6) Hypertension: Patient with hypertension controlled on metoprolol and lisinopril. Lisinopril was on hold due to acute kidney injury. BP stable Continue metoprolol for now, monitor BP (7) Seizure disorder: Last seizures more than a month ago PO Keppra resumed tonight (8) Diabetic peripheral neuropathy: Has severe peripheral neuropathy chronic (9) Chest pain: Complained of exertional chest pain EKG and cardiac enzymes Echo; EF was 55-60%, moderate concentric LVH with sigmoid septum no LV or motion abnormality and grade 1 diastolic dysfunction Appreciate cardiology input Chest pain seems to be noncardiac (10) DVT prophylaxis: SCDs, early ambulation heparin subcutaneous every 8 hours (11) Discharge planning issues: anticipate d/c home when medically stable Subjective ff up for nausea/vomiting, shortness of breath seen sitting up in bed, somewhat weak states he still has dyspnea when speaking, still coughing with yellow sputum no chest pain no nausea/vomiting, abdominal pain today denies other symptoms Physical Exam 2 Vital Signs (Past 24 Hours): Last Vital Signs Temp 36.7 C 05/09/18 11:35 Pulse 83 05/09/18 13:47 Resp 14 05/09/18 13:47 BP 160/88 H 05/09/18 11:35 Pulse Ox 98 05/09/18 13:47 Physical Exam: General- oriented x 3, not in distress, speaks in sentences with no effort or accessory muscle use Eyes- anicteric Neck- no JVD Lungs- mild rales on the left base, no wheezing clear on the right Heart- normal rate, regular rhythm; no murmurs Abdomen- normal bowel sounds, nondistended, soft, nontender Extremities- no pretibial edema, no calf tenderness Neuro- alert, oriented x 3; no gross focal neurologic deficits Skin- warm & dry Results & Data Laboratory Results Laboratory Results - last 24 hr 05/08/18 05/08/18 05/08/18 16:08 16:08 16:40 D-Dimer 1040 H* Sodium Potassium Chloride Carbon Dioxide Anion Gap BUN Creatinine Est Cr Clr Drug Dosing Est GFR ( Amer) Est GFR (Non-Af Amer) BUN/Creatinine Ratio Glucose POC Glucose 53 L* Calcium Procalcitonin 0.09 Nasal Screen MRSA (PCR) 05/08/18 05/08/18 05/08/18 17:02 17:21 17:23 D-Dimer Sodium Potassium Chloride Carbon Dioxide Anion Gap BUN Creatinine Est Cr Clr Drug Dosing Est GFR ( Amer) Est GFR (Non-Af Amer) BUN/Creatinine Ratio Glucose POC Glucose 49 L* 44 L* 45 L* Calcium Procalcitonin Nasal Screen MRSA (PCR) 05/08/18 05/08/18 05/08/18 18:13 20:55 21:26 D-Dimer Sodium Potassium Chloride Carbon Dioxide Anion Gap BUN Creatinine Est Cr Clr Drug Dosing Est GFR ( Amer) Est GFR (Non-Af Amer) BUN/Creatinine Ratio Glucose POC Glucose 97 188 H Calcium Procalcitonin Nasal Screen MRSA (PCR) Negative 05/09/18 05/09/18 05/09/18 06:06 07:13 07:14 D-Dimer Sodium 137 Potassium 3.7 Chloride 107 Carbon Dioxide 23 Anion Gap 7.0 BUN 21 H Creatinine 1.92 H D Est Cr Clr Drug Dosing 43.5 Est GFR ( Amer) 45.4 Est GFR (Non-Af Amer) 39.2 BUN/Creatinine Ratio 10.9 Glucose 81 POC Glucose 69 L* 66 L* Calcium 7.8 L Procalcitonin Nasal Screen MRSA (PCR) 05/09/18 11:19 D-Dimer Sodium Potassium Chloride Carbon Dioxide Anion Gap BUN Creatinine Est Cr Clr Drug Dosing Est GFR ( Amer) Est GFR (Non-Af Amer) BUN/Creatinine Ratio Glucose POC Glucose 89 Calcium Procalcitonin Nasal Screen MRSA (PCR) _ (1) Chest pain Chest pain type: unspecified Ischemic chest pain type: Qualified Code(s): R07.9 - Chest pain, unspecified
[2018-05-09] MEDS ORDERED: CEFEPIME CONSULT ACTIVE PRN (15:50)
--- NOTE | 2018-05-09 16:53 | CT Scan Report ---
CT SCAN OF THE CHEST WITHOUT IV CONTRAST CLINICAL HISTORY: Dyspnea. COMPARISON STUDY: Chest CT scans dated 11/22/2017 and 01/20/2017. Chest x-ray dated 05/08/2018. TECHNIQUE: CT scan of the thorax was performed from the thoracic inlet to the upper abdomen. Images are reviewed in the axial, sagittal, and coronal planes. IV contrast was not administered for this ex amination as per the referring clinician. A dose lowering technique was utilized adhering to the thao stefanieples of DONA. CT DOSE: 394.56 mGy.cm FINDINGS: Thyroid: Imaged portions of the thyroid gland are normal in size and attenuation. A 10 mm low-attenua tion nodule is noted in the right lobe. Thoracic aorta: The thoracic aorta is normal in caliber and demonstrates standard 3-vessel arch anato my. Heart: The heart is top normal in size and without pericardial effusion. There is diminished attenuat ion of the cardiac blood pool as compared to the myocardium suggesting anemia. There are coronary art genna calcifications. Lungs and pleural spaces: Mild emphysematous change is noted. Again seen are postoperative changes an d volume loss from left-sided pulmonary resection with parenchymal scarring in the left upper lung. T here is a small left pleural effusion. Patchy airspace consolidation is seen at the left lung base. M inimal patchy airspace consolidation is seen at the right lung base on image #168. 3 mm right apical pulmonary nodules are seen on images #42 and #53. These are unchanged from 01/20/2017 and of doubtful significance. No new pulmonary nodule is identified. The trachea and central airways are clear. Mediastinum: There is no mediastinal lymphadenopathy. Kaelyn: Not well assessed without IV contrast. Axillae: There is no axillary lymphadenopathy. Upper abdomen: A small hiatal hernia is noted. The stomach is distended with ingested material. Stimu lator leads are seen along the distal stomach. The gallbladder is surgically absent. The spleen is mi ldly enlarged measuring 13.6 cm in length. Moderate fecal retention is noted throughout the imaged co jose. Skeletal structures: No lytic or blastic bony lesions are seen. Soft tissues: There is subcutaneous soft tissue edema seen throughout the right chest wall, greatest along the pectoralis muscle. There is a punctate focus of subcutaneous gas seen on axial image #1. IMPRESSION: 1. Emphysema and postoperative change from left upper lobe pulmonary resection. 2. There is patchy airspace consolidation throughout the left lung base with a small left pleural eff usion. Additionally, there is minimal patchy consolidation at the right lung base. The appearance sug gests a multifocal infectious/inflammatory pneumonitis. Clinical correlation will be essential. 3. There is soft tissue edema seen throughout the right chest wall, greatest along the pectoralis mus malcolm. Additionally, there is a punctate focus of subcutaneous gas. Correlate clinically for evidence o f infection/cellulitis. 4. Additional findings as above. Electronically signed by: Russell Ty M.D. 05/09/2018 4:52 PM
[2018-05-09] MEDS: CEFEPIME 2,000 MG in SYRINGE 7.5 ML IV SCH (17:07)
--- NOTE | 2018-05-09 19:13 | Pulmonary Consultation ---
Date of Consultation May 09, 2018 Assessment & Plan (1) Pneumonia: Impression: 1. Aspiration pneumonia, very common in a patient who had VNS. 2. Severe gastroparesis thought to be related to diabetic neuropathy. 3. Chronic kidney disease. 4. History of seizure disorder, no evidence of seizure activity around his illness at this time. 5. Autonomic hypertension. 6. Adenocarcinoma in the lung, status post lingular segmentectomy. 7. COPD changes noted on the CAT scan, the patient claims that he has not been a smoker in the past nor he had secondhand exposure, he does have significant industrial exposure working in [employer]. Plan: 1. I will cover the patient with antibiotics including anaerobes, the patient is at risk for recurrent aspiration. 2. Discontinue doxycycline. 3. Add Flagyl IV. 4. Obtain pro calcitonin level. 5. If pro calcitonin is elevated, continue treatment with IV antibiotics for additional 24-48 hours then change the patient to Augmentin p.o. 6. Short course of steroids would help given the patient COPD changes noted on the CAT scan. 7. No need to pursue the diagnosis of PE, the clinical picture does not supported, V/Q scan is nondiagnostic. 8. Adjusting the output of VNS may help eliminating his recurrent aspiration. Thank you for the kind referral, will follow. History of Present Illness Reason for Consultation: Shortness of breath Requesting Physician: Dr. Car Attending Physician: Stephon Vernon MD History of Present Illness Dear Dr. Car: Thank you for the kind referral of Mr. Hamilton to pulmonary service. The patient is an unfortunate 52-year-old gentleman with extensive past medical history significant for seizure disorder, chronic kidney disease, gastroparesis with VNS, adenocarcinoma of the lung according to the patient, status post lingular segmentectomy, done at [facility], the patient according to him [place] started feeling sick to his stomach, vomited after that was unable to breathe. EMS was called and the patient O2 saturation was 70% on arrival, started on oxygen and admitted through the ED to the hospital. The patient continued to have shortness of breath, he has cough but nonproductive, he denies any chest pain itself. No abdominal pain was reported. He does have fluid retention with increased swelling in his lower extremities, he was not aware of it. He denies any further nausea or vomiting. No change in bowel movements or urine habits. No recent seizure activity. He does have intrathecal device for pain control. He is diabetic with autonomic neuropathy. He does have history of total knee replacement at younger age. He does have autonomic hypertension as well. No similar episodes done in the past. He presented to as [facility] where he underwent a CAT scan of the chest a month ago and he was told that he has nodules in his lungs. Patient was admitted to the hospital and started on broad-spectrum antibiotic, and we were asked to evaluate the patient due to persistent shortness of breath. The patient has COPD changes also noted on the CAT scan. Previous workup including echocardiogram revealed diastolic dysfunction grade 1. He is diabetic and well controlled. Family history does not contribute to his current illness. His past medical history is extensive and as mentioned in the H&P. He denies any history of smoking in the past but he does have secondhand exposure to smoking. 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 He claims that he has been using a mask at work. Allergies Allergy/AdvReac Type Severity Reaction Status Date / Time bee venom protein (honey bee) Allergy Mild SWELLING Verified 05/05/18 21:24 AT SITE, SOB Penicillins Allergy Unknown "SINCE Unverified 05/05/18 21:24 "-Amoxicillin metoclopramide AdvReac Unknown hallucinati Verified 05/05/18 21:24 ons Home Medications Home Medications Medication Instructions Recorded Confirmed Type acetaminophen [Acetaminophen Extra 1,000 mg PO Q6H PRN 05/05/18 05/05/18 History Strength] albuterol sulfate 2 puff INHALATION Q4H PRN 05/05/18 05/05/18 History amlodipine 5 mg PO DAILY 05/05/18 05/05/18 History aspirin [Aspirin Low Dose] 81 mg PO DAILY 05/05/18 05/05/18 History epinephrine [EpiPen] 0.3 mg IM Q3H PRN 05/05/18 05/05/18 History fentanyl 1 patch TOPICAL Q2D 05/05/18 05/05/18 History ferrous sulfate 325 mg PO DAILY 05/05/18 05/05/18 History gabapentin 300 mg PO TID 05/05/18 05/05/18 History insulin glargine [Basaglar KwikPen 15 unit SUBCUT HS 05/05/18 05/05/18 History U-100 Insulin] insulin lispro [Humalog U-100 1 sliding scale dose SUBCUT UD 05/05/18 05/05/18 History Insulin] levetiracetam [Keppra] 500 mg PO BID 05/05/18 05/05/18 History lisinopril 40 mg PO DAILY 05/05/18 05/05/18 History magnesium oxide 400 mg PO BID 05/05/18 05/05/18 History metoprolol tartrate 75 mg PO BID 05/05/18 05/05/18 History multivitamin 1 tab PO DAILY 05/05/18 05/05/18 History ondansetron HCl 8 mg PO Q8H PRN 05/05/18 05/05/18 History oxycodone 10 mg PO Q4H 05/05/18 05/05/18 History pantoprazole 40 mg PO DAILY 05/05/18 05/05/18 History polyethylene glycol 3350 [Miralax] 17 g PO DAILY 05/05/18 05/05/18 History prochlorperazine maleate 10 mg PO Q6H PRN 05/05/18 05/05/18 History trimethobenzamide 300 mg PO TID PRN 05/05/18 05/05/18 History Patient History Medical History Gastroparesis (Chronic) "s/p gastric stimulator" Hypertension (Chronic) Lung cancer (Chronic) "dx 01/2016; adenoCa SHAWN; + hilar nodes; s/p left upper lobectomy + chemo" On 08/05/16 16:31 Edie Mcfarland wrote "dx 01/2016; s/p L side lobectomy; currently undergoing chemo" Diabetic peripheral neuropathy (Chronic) Diabetic autonomic neuropathy (Chronic) Chronic pain (Chronic) Diabetes mellitus type 2, uncontrolled (Acute) Hypomagnesemia Surgical History History of cholecystectomy (Chronic) History of tonsillectomy and adenoidectomy (Chronic) Hx of total knee arthroplasty (Chronic) S/P lobectomy of lung (Chronic) "left upper lobectomy for adenoCa" On 08/05/16 16:30 Edie Mcfarland wrote "[place] [facility] [facility] [place]/25[place]16" H/O esophagogastroduodenoscopy (Chronic) "01/26/2015- LA Grade B reflux esophagitis, gastritis; Dr. Major" H/O colonoscopy (Chronic) " 04/22/2013- Mildly congested and erythematous mucosa in the ascending colon. One 1 mm polyp in the ascending colon resected. One benign appearing 1 mm polyp in the rectum resected. Internal hemorrhoids; Dr. Demarco" Social History Current Living Situation: Alone Other Information That Helps Us Care for You: No Feels Safe at Home: Yes Safety Concerns: Feels Safe At This Time Smoking Status: Never smoker Tobacco Type: smokeless tobacco Do You Dip or Chew Tobacco: Yes Hx Alcohol Use: No Hx Substance Use: Yes substance use type: prescription drug Last Used Substance : Just Prior to Arrival Beliefs That Will Affect Care: None Preferred Language: Mauritanian Communication Ability: Effective Care Partner Required: No Review of Systems Review of system including 14 systems has been done, above noted symptoms were mentioned in the first section. Physical Exam 2 Vital Signs (Past 24 Hours): Last Vital Signs Temp 36.7 C 05/09/18 11:35 Pulse 83 05/09/18 13:47 Resp 14 05/09/18 13:47 BP 160/88 H 05/09/18 11:35 Pulse Ox 98 05/09/18 13:47 Physical Exam: His vital signs are stable, he is on room air 95%, S1-S2 regular rate and rhythm, abdomen is with minimal tenderness mainly in the epigastric area, lungs are rhonchorous, edema in the periphery noted. Results & Data Laboratory Results Labs noted for elevated BUN and creatinine, no significant leukocytosis. Diagnostic Findings CAT scan of the chest was reviewed which showed postop changes in the lingula, multiple areas of nodular infiltrate in the left lower lobe. No lymphadenopathy. Bronchiectatic changes also in the lower lobes.
[2018-05-09] MEDS: ACETYLCYSTEINE 10% INHAL SOLN **DISPENSED FROM RESP. INH SCH (19:25)
[2018-05-09] MEDS: INSULIN GLARGINE SOLOSTAR 100 UNITS/ML 3 ML PEN SC SCH (20:26)
[2018-05-10] MEDS: LEVALBUTEROL HCL 0.63 MG/3 ML NEB NEB SCH ×4 (02:08→19:06)
[2018-05-10] MEDS: IPRATROPIUM BROMIDE NEB SOLN 0.02% 2.5 ML VIAL NEB SCH ×4 (02:08→19:07)
[2018-05-10] MEDS: CEFEPIME 2,000 MG in SYRINGE 7.5 ML IV SCH ×2 (03:43→18:56)
[2018-05-10] MEDS: OXYCODONE HCL IR 5 MG TAB (IMMEDIATE RELEASE) PO PRN ×4 (03:52→20:46)
[2018-05-10] MEDS: HEPARIN SOD 5,000 UNIT/0.5 ML VIAL SQ SCH ×3 (05:36→20:38)
[2018-05-10 06:49] LABS: Calcium 7.9 mg/dl (8.5-10.1); Creatinine Clr Calc Pharmacy 53.6 ml/min; Est GFR (African American) 58.3; Est GFR (Non-African American) 50.3; Potassium 3.8 mmol/L (3.5-5.1)
[2018-05-10] MEDS: ACETYLCYSTEINE 10% INHAL SOLN **DISPENSED FROM RESP. INH SCH ×2 (07:09→19:06)
[2018-05-10] MEDS: PANTOprazole 40 MG TAB PO SCH (07:48)
[2018-05-10] MEDS: MULTIVITAMIN TAB PO SCH (07:48)
[2018-05-10] MEDS: METOPROLOL TARTRATE 25 MG TAB PO SCH ×2 (07:48→20:37)
[2018-05-10] MEDS: DOXYCYCLINE HYCLATE 50 MG CAP PO SCH (07:49)
[2018-05-10] MEDS: levETIRAcetam 500 MG TAB PO SCH ×2 (07:49→20:36)
[2018-05-10] MEDS: POLYETHYLENE (MIRALAX) 17 GM PACK PO SCH (07:49)
[2018-05-10] MEDS: FERROUS SULFATE 325 MG TAB PO SCH (07:49)
[2018-05-10] MEDS: GABAPENTIN 300 MG CAP PO SCH ×2 (07:49→20:38)
[2018-05-10] MEDS: CHECK FENTANYL PATCH PLACEMENT SCH ×2 (07:50→17:12)
[2018-05-10] MEDS: INSULIN ASPART 100 UNITS/ML 3 ML PEN SC SCH ×4 (07:51→20:38)
[2018-05-10] MEDS: ASPIRIN 81 MG ECTAB PO SCH (07:52)
[2018-05-10] MEDS ORDERED: AMLODIPINE BESYLATE 5 MG TAB PO SCH (09:00)
[2018-05-10] MEDS: LACTATED RINGER'S 1,000 ML IV SCH (12:36)
[2018-05-10] MEDS ORDERED: AMLODIPINE BESYLATE 5 MG TAB PO ONE ×2 (16:27→21:50)
--- NOTE | 2018-05-10 17:07 | Hospitalist Progress Note ---
Date of Service May 10, 2018 Assessment & Plan (1) IVAN (acute kidney injury): Patient with acute kidney injury on CKD likely due to prerenal azotemia in setting of diarrhea and vomiting. Urinalysis showed concentrated urine and a urine sodium of 17. crea continues to improve d/c LR appreciate Nephro consult (2) Acute hyponatremia: Patient admitted with the sodium of 128. Likely secondary to loss from GI tract Na improved to 137 (3) Nausea and vomiting: KUB Xray: IMPRESSION: 1. No acute intra-abdominal pathology. 2. Gastric stimulator leads now project over the gastric antrum, which represents a change from prior exam. - evaluated by GI given Emend symptoms continue to improve Advance diet to regular diet , tolerating well (4) Gastroparesis: Has history ongoing gastroparesis secondary to diabetes Has a gastric stimulator management as noted above (5) Pneumonia: Patient admitted with shortness of breath. Chest x-ray no signs of volume overload. no pneumonia and/or CHF identified 05/08/18 Reported increased productive cough, shortness of breath after exertion Repeat chest x-ray showing possible left middle to lower lobe pneumonia D-dimer elevated 1000 Start empiric ceftriaxone and doxycycline Get sputum cultures VQ scan: indeterminate Doppler of the lower extremities: no DVT 05/09/18 still has dyspnea, cough CT chest ordered broaden antbiotics from Ceftri to Zosyn + Doxy add Mucomyst D dimer elevated, VQ scan indeterminate, Doppler US of legs: negative will consult Pulmonology [facility] 05/10/[address] Granados likely aspiration pna change ABx to Clindamycin only continue nebs, mucomyst Clinda will also cover chest wall cellulitis monitor PRN Flexeril ordered (6) Hypertension: Patient with hypertension controlled on metoprolol and lisinopril. Lisinopril was on hold due to acute kidney injury. BP elevated additional Amlodipine ordered Continue metoprolol for now, monitor BP (7) Seizure disorder: Last seizures more than a month ago PO Keppra resumed tonight (8) Diabetic peripheral neuropathy: Has severe peripheral neuropathy chronic (9) Chest pain: Complained of exertional chest pain EKG and cardiac enzymes Echo; EF was 55-60%, moderate concentric LVH with sigmoid septum no LV or motion abnormality and grade 1 diastolic dysfunction Appreciate cardiology input Chest pain seems to be noncardiac (10) DVT prophylaxis: SCDs, early ambulation heparin subcutaneous every 8 hours (11) Discharge planning issues: anticipate d/c home when medically stable Subjective ff up for nausea/vomiting, pneumonia seen sitting in bed, not in distress still having productive cough, dyspnea on exertion has more chest wall pain today no nausea/vomiting denies other symptoms Physical Exam 2 Vital Signs (Past 24 Hours): Last Vital Signs Temp 36.7 C 05/10/18 15:55 Pulse 84 05/10/18 15:55 Resp 20 05/10/18 15:55 BP 168/93 H 05/10/18 15:55 Pulse Ox 100 05/10/18 15:55 Physical Exam: General- oriented x 3, not in distress, speaks in sentences with no effort or accessory muscle use Eyes- anicteric Neck- no JVD Lungs- mild rales on the left base, no wheezing Heart- normal rate, regular rhythm; no murmurs Abdomen- normal bowel sounds, nondistended, soft, nontender Extremities- no pretibial edema, no calf tenderness Neuro- alert, oriented x 3; no gross focal neurologic deficits Skin- warm & dry _ (1) Chest pain Chest pain type: unspecified Ischemic chest pain type: Qualified Code(s): R07.9 - Chest pain, unspecified
[2018-05-10] MEDS ORDERED: CLINDAMYCIN CONSULT ACTIVE PRN (17:25)
[2018-05-10] MEDS: CLINDAMYCIN 600 MG in DEXTROSE 5% 50 ML IV SCH (17:49)
[2018-05-10] MEDS: CYCLOBENZAPRINE HCL 5 MG TAB PO PRN (17:49)
[2018-05-10] MEDS: INSULIN GLARGINE SOLOSTAR 100 UNITS/ML 3 ML PEN SC SCH (20:36)
--- NOTE | 2018-05-10 20:49 | Pulmonology Progress Note ---
Date of Service May 10, 2018 Assessment & Plan (1) Pneumonia: Impression: 1. Aspiration pneumonia, very common in a patient who had VNS. 2. Severe gastroparesis thought to be related to diabetic neuropathy. 3. Chronic kidney disease. 4. History of seizure disorder, no evidence of seizure activity around his illness at this time. 5. Autonomic hypertension. 6. Adenocarcinoma in the lung, status post lingular segmentectomy. 7. 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 8. I did not appreciate on my exam evidence of cellulitis in the anterior chest wall over the patient feels swelling in that area. The CAT scan also mention something similar but clinically is not feasible. Patient also does not have any fever, does not have any markers for infection. Plan: 1. Agree with clindamycin for total 5 days. 2. Discontinue doxycycline. 3. No need for broad-spectrum antibiotics. 4. Pro-calcitonin is normal. 5. I had a long discussion with the patient regarding his aspiration and the presence of vagal nerve stimulator. Apparently the output of the stimulator has been increased gradually for the past 2 years. He has an appointment with his surgeon at [facility] in June to go over it. 6. Short course of steroids would help given the patient COPD changes noted on the CAT scan. 7. No need to pursue the diagnosis of PE, the clinical picture does not supported, V/Q scan is nondiagnostic. 8. Adjusting the output of VNS may help eliminating his recurrent aspiration. 9. Patient can be discharged home. Thank you for the kind referral. Subjective The patient is asymptomatic from pulmonary standpoint, he continues to feel pain in his subcostal area, he feels there is swelling in the area as well. I did not appreciate on my own exam. No nausea or vomiting, no regurgitation, no heartburn reported. The rest of his review of system was unremarkable. Physical Exam 2 Vital Signs (Past 24 Hours): Last Vital Signs Temp 37 C 05/10/18 19:32 Pulse 80 05/10/18 19:32 Resp 20 05/10/18 19:32 BP 182/95 H 05/10/18 19:32 Pulse Ox 97 05/10/18 19:32 Physical Exam: Vital signs are stable, S1-S2 regular rate and rhythm, distant breath sounds bilaterally, but clear, abdomen is benign, no evidence of swelling on the anterior chest area, no edema in the periphery. Results & Data Laboratory Results No new labs. Diagnostic Findings No new imaging.
[2018-05-10] MEDS ORDERED: OXYCODONE HCL IR 5 MG TAB (IMMEDIATE RELEASE) PO PRN (21:54)
[2018-05-11] MEDS ORDERED: HydrALAZINE 10 MG TAB PO STA (00:16)
[2018-05-11] MEDS: CYCLOBENZAPRINE HCL 5 MG TAB PO PRN ×3 (00:41→20:08)
[2018-05-11] MEDS: CHECK FENTANYL PATCH PLACEMENT SCH ×4 (00:44→23:29)
[2018-05-11] MEDS: IPRATROPIUM BROMIDE NEB SOLN 0.02% 2.5 ML VIAL NEB SCH ×4 (01:44→21:21)
[2018-05-11] MEDS: LEVALBUTEROL HCL 0.63 MG/3 ML NEB NEB SCH ×4 (01:44→21:21)
[2018-05-11] MEDS: CLINDAMYCIN 600 MG in DEXTROSE 5% 50 ML IV SCH ×3 (02:13→18:18)
[2018-05-11] MEDS: HEPARIN SOD 5,000 UNIT/0.5 ML VIAL SQ SCH ×3 (05:22→21:17)
[2018-05-11] MEDS: ACETYLCYSTEINE 10% INHAL SOLN **DISPENSED FROM RESP. INH SCH ×2 (07:41→14:16)
[2018-05-11] MEDS: OXYCODONE HCL IR 5 MG TAB (IMMEDIATE RELEASE) PO PRN ×2 (08:06→13:49)
[2018-05-11] MEDS: PANTOprazole 40 MG TAB PO SCH (08:09)
[2018-05-11] MEDS: POLYETHYLENE (MIRALAX) 17 GM PACK PO SCH (08:09)
[2018-05-11] MEDS: FERROUS SULFATE 325 MG TAB PO SCH (08:09)
[2018-05-11] MEDS: MULTIVITAMIN TAB PO SCH (08:09)
[2018-05-11] MEDS: METOPROLOL TARTRATE 25 MG TAB PO SCH ×2 (08:09→21:18)
[2018-05-11] MEDS: ASPIRIN 81 MG ECTAB PO SCH (08:09)
[2018-05-11] MEDS: GABAPENTIN 300 MG CAP PO SCH ×2 (08:09→21:18)
[2018-05-11] MEDS: AMLODIPINE BESYLATE 5 MG TAB PO SCH (08:10)
[2018-05-11] MEDS: levETIRAcetam 500 MG TAB PO SCH ×2 (08:10→21:13)
[2018-05-11] MEDS: INSULIN ASPART 100 UNITS/ML 3 ML PEN SC SCH ×4 (08:13→21:16)
[2018-05-11] MEDS: HYDROmorphone INJ 0.5 MG/0.5 ML SYR IV PRN ×4 (09:13→23:26)
[2018-05-11] MEDS ORDERED: predniSONE 20 MG TAB PO STA (15:16)
--- NOTE | 2018-05-11 15:34 | Hospitalist Progress Note ---
Date of Service May 11, 2018 delayed entry date of service as noted above Assessment & Plan (1) IVAN (acute kidney injury): Patient with acute kidney injury on CKD likely due to pre-renal azotemia in setting of diarrhea and vomiting. Urinalysis showed concentrated urine and a urine sodium of 17. crea slightly elevated NSS ordered appreciate Nephro consult (2) Acute hyponatremia: Patient admitted with the sodium of 128. Likely secondary to loss from GI tract Na improved to 137 (3) Nausea and vomiting: KUB Xray: IMPRESSION: 1. No acute intra-abdominal pathology. 2. Gastric stimulator leads now project over the gastric antrum, which represents a change from prior exam. - evaluated by GI given Emend symptoms continue to improve Advance diet to regular diet , tolerating well (4) Gastroparesis: Has history ongoing gastroparesis secondary to diabetes Has a gastric stimulator management as noted above (5) Pneumonia: Patient admitted with shortness of breath. Chest x-ray no signs of volume overload. no pneumonia and/or CHF identified 05/08/18 Reported increased productive cough, shortness of breath after exertion Repeat chest x-ray showing possible left middle to lower lobe pneumonia D-dimer elevated 1000 Start empiric ceftriaxone and doxycycline Get sputum cultures VQ scan: indeterminate Doppler of the lower extremities: no DVT 05/09/18 still has dyspnea, cough CT chest ordered broaden antbiotics from Ceftri to Zosyn + Doxy add Mucomyst D dimer elevated, VQ scan indeterminate, Doppler US of legs: negative will consult Pulmonology [facility] 05/10/[address] Granados likely aspiration pna change ABx to Clindamycin only continue nebs, mucomyst Clinda will also cover chest wall cellulitis monitor PRN Flexeril ordered 05/12 improving but has chest wall pain still pain management consulted (6) Hypertension: Patient with hypertension controlled on metoprolol and lisinopril. Lisinopril was on hold due to acute kidney injury. BP elevated additional Amlodipine ordered Continue metoprolol for now, monitor BP improving (7) Seizure disorder: Last seizures more than a month ago PO Keppra resumed (8) Diabetic peripheral neuropathy: Has severe peripheral neuropathy chronic (9) Chest pain: Complained of exertional chest pain EKG and cardiac enzymes Echo; EF was 55-60%, moderate concentric LVH with sigmoid septum no LV or motion abnormality and grade 1 diastolic dysfunction Appreciate cardiology input Chest pain seems to be noncardiac (10) DVT prophylaxis: SCDs, early ambulation heparin subcutaneous every 8 hours (11) Discharge planning issues: anticipate d/c home when medically stable Subjective ff up for nausea, acute renal failure, etc. seen resting in bed, comfortable states chest wall pain is getting worsening, worse with coughing still has productive cough and some dyspnea denies nausea tolerating diet well denies other symptoms Physical Exam 2 Vital Signs (Past 24 Hours): Last Vital Signs Temp 36.8 C 05/11/18 11:54 Pulse 74 05/11/18 14:20 Resp 18 05/11/18 14:20 BP 110/67 05/11/18 11:54 Pulse Ox 98 05/11/18 14:20 Physical Exam: General- oriented x 3, not in distress, speaks in sentences with no effort or accessory muscle use Eyes- anicteric Neck- no JVD Lungs- mild rales left base no wheezing right chest wall: less edema, tenderness Heart- normal rate, regular rhythm; no murmurs Abdomen- normal bowel sounds, nondistended, soft, nontender Extremities- no pretibial edema, no calf tenderness Neuro- alert, oriented x 3; no gross focal neurologic deficits Skin- warm & dry Results & Data Laboratory Results noted and reviewed _ (1) Chest pain Chest pain type: unspecified Ischemic chest pain type: Qualified Code(s): R07.9 - Chest pain, unspecified
[2018-05-11 15:56] LABS: BUN Creatinine Ratio 9.4 (10-20); Creatinine Clr Calc Pharmacy 49.5 ml/min; Est GFR (African American) 52.9; Est GFR (Non-African American) 45.7; Potassium 4.2 mmol/L (3.5-5.1)
[2018-05-11] MEDS ORDERED: HYDROmorphone INJ 0.5 MG/0.5 ML SYR IV STA (17:08)
[2018-05-11] MEDS: fentaNYL 100 MCG/HR TDSY TD SCH (17:49)
[2018-05-11] MEDS ORDERED: SODIUM CHLORIDE 0.9% 1000ML 1,000 ML IV SCH (19:00)
[2018-05-11] MEDS: INSULIN GLARGINE SOLOSTAR 100 UNITS/ML 3 ML PEN SC SCH (21:14)
[2018-05-12] MEDS: CLINDAMYCIN 600 MG in DEXTROSE 5% 50 ML IV SCH ×3 (02:20→18:51)
[2018-05-12] MEDS: LEVALBUTEROL HCL 0.63 MG/3 ML NEB NEB SCH ×4 (02:25→19:04)
[2018-05-12] MEDS: IPRATROPIUM BROMIDE NEB SOLN 0.02% 2.5 ML VIAL NEB SCH ×4 (02:25→19:04)
[2018-05-12] MEDS: HYDROmorphone INJ 0.5 MG/0.5 ML SYR IV PRN ×3 (07:47→18:59)
[2018-05-12] MEDS: AMLODIPINE BESYLATE 5 MG TAB PO SCH (07:47)
[2018-05-12] MEDS: GABAPENTIN 300 MG CAP PO SCH ×2 (07:47→21:16)
[2018-05-12] MEDS: MULTIVITAMIN TAB PO SCH (07:48)
[2018-05-12] MEDS: ASPIRIN 81 MG ECTAB PO SCH (07:48)
[2018-05-12] MEDS: METOPROLOL TARTRATE 25 MG TAB PO SCH ×2 (07:48→21:16)
[2018-05-12] MEDS: PANTOprazole 40 MG TAB PO SCH (07:48)
[2018-05-12] MEDS: predniSONE 20 MG TAB PO SCH (07:49)
[2018-05-12] MEDS: CYCLOBENZAPRINE HCL 5 MG TAB PO PRN (07:49)
[2018-05-12] MEDS: POLYETHYLENE (MIRALAX) 17 GM PACK PO SCH (07:49)
[2018-05-12] MEDS: levETIRAcetam 500 MG TAB PO SCH ×2 (07:50→21:16)
[2018-05-12] MEDS: CHECK FENTANYL PATCH PLACEMENT SCH ×3 (07:50→23:48)
[2018-05-12] MEDS: FERROUS SULFATE 325 MG TAB PO SCH (07:50)
[2018-05-12] MEDS: HEPARIN SOD 5,000 UNIT/0.5 ML VIAL SQ SCH ×3 (07:51→21:17)
[2018-05-12] MEDS ORDERED: INSULIN GLARGINE SOLOSTAR 100 UNITS/ML 3 ML PEN SC ONE (08:15)
[2018-05-12] MEDS: INSULIN ASPART 100 UNITS/ML 3 ML PEN SC SCH ×4 (08:30→21:20)
--- NOTE | 2018-05-12 09:51 | Pain Management Consultation ---
Date of Consultation May 12, 2018 Assessment & Plan (1) Pneumonia: 1. After reviewing the CT scan of the chest no rib structures were identified. Recommend patient continue to utilize splinting techniques with a pillow to provide support during times of coughing to eliminate increased risk of rib fractures. Should pain become more focal or worsened consider repeat imaging with plain film x-rays rib series to rule out fracture. 2. Recommend utilizing Lidoderm patch to minimize discomfort. Patient may place up to 2 patches on it once to diminish pain. Orders are written 3. Would not recommend escalating narcotics at this time. The patient has tried multiple narcotics in the past with limited benefit. 4. Would not recommend increasing gabapentin dosing in light of chronic renal insufficiency. 5. Please call with any questions, will sign off at this time. (2) Diabetic peripheral neuropathy: (3) Chronic pain: (4) S/P lobectomy of lung: (5) Lung cancer: (6) Acute dyspnea: History of Present Illness Attending Physician: Antonino Car MD History of Present Illness 52-year-old male previously well known to the [facility] pain managent office with history of peripheral neuropathy status post intrathecal pump explantation and CSF leak. The patient is currently admitted as of 05/05/2018 with pneumonia and shortness of breath as well as pleuritic type chest wall pain. He states that pain is slightly more left-sided than right over approximate eighth and ninth and 10th ribs. He states that pain is worsened by coughing and trying to produce sputum. He states that pain ranges between 5 and 7 out of 10 with exacerbations up to 10 out of 10. He states that he is tried splinting with a pillow which has provided some measure of relief. He is chronically on fentanyl 100 mcg and feels that his current regimen of OxyIR and IV hydromorphone and Flexeril is of minimal benefit. He states that he is comfortable with pain ranging between 5 and 6 out of 10 because that is his normal range. He denies any thoracic back pain its predominantly over the mid scapular and axillary line. He denies any side effects of his current medications, bowel or bladder incontinence, motor weakness, constipation or narcotic side effects, chills or night sweats. Pain Assessment Full Body Front + Back: 2 1. 2. [facility] Combined Pain Scale: 5-Moderate - Cannot perform normal tasks without increase in pain Pain scale - at its best (0-10): 5 Pain scale - at its worst (0-10): 7 Allergies Allergy/AdvReac Type Severity Reaction Status Date / Time bee venom protein (honey bee) Allergy Mild SWELLING Verified 05/05/18 21:24 AT SITE, SOB Penicillins Allergy Unknown "SINCE Unverified 05/05/18 21:24 "-Amoxicillin metoclopramide AdvReac Unknown hallucinati Verified 05/05/18 21:24 ons Home Medications Home Medications Medication Instructions Recorded Confirmed Type acetaminophen [Acetaminophen Extra 1,000 mg PO Q6H PRN 05/05/18 05/05/18 History Strength] albuterol sulfate 2 puff INHALATION Q4H PRN 05/05/18 05/05/18 History amlodipine 5 mg PO DAILY 05/05/18 05/05/18 History aspirin [Aspirin Low Dose] 81 mg PO DAILY 05/05/18 05/05/18 History epinephrine [EpiPen] 0.3 mg IM Q3H PRN 05/05/18 05/05/18 History fentanyl 1 patch TOPICAL Q2D 05/05/18 05/05/18 History ferrous sulfate 325 mg PO DAILY 05/05/18 05/05/18 History gabapentin 300 mg PO TID 05/05/18 05/05/18 History insulin glargine [Basaglar KwikPen 15 unit SUBCUT HS 05/05/18 05/05/18 History U-100 Insulin] insulin lispro [Humalog U-100 1 sliding scale dose SUBCUT UD 05/05/18 05/05/18 History Insulin] levetiracetam [Keppra] 500 mg PO BID 05/05/18 05/05/18 History lisinopril 40 mg PO DAILY 05/05/18 05/05/18 History magnesium oxide 400 mg PO BID 05/05/18 05/05/18 History metoprolol tartrate 75 mg PO BID 05/05/18 05/05/18 History multivitamin 1 tab PO DAILY 05/05/18 05/05/18 History ondansetron HCl 8 mg PO Q8H PRN 05/05/18 05/05/18 History oxycodone 10 mg PO Q4H 05/05/18 05/05/18 History pantoprazole 40 mg PO DAILY 05/05/18 05/05/18 History polyethylene glycol 3350 [Miralax] 17 g PO DAILY 05/05/18 05/05/18 History prochlorperazine maleate 10 mg PO Q6H PRN 05/05/18 05/05/18 History trimethobenzamide 300 mg PO TID PRN 05/05/18 05/05/18 History Patient History Medical History Gastroparesis (Chronic) "s/p gastric stimulator" Hypertension (Chronic) Lung cancer (Chronic) "dx 01/2016; adenoCa SHAWN; + hilar nodes; s/p left upper lobectomy + chemo" On 08/05/16 16:31 Edie Mcfarland wrote "dx 01/2016; s/p L side lobectomy; currently undergoing chemo" Diabetic peripheral neuropathy (Chronic) Diabetic autonomic neuropathy (Chronic) Chronic pain (Chronic) Diabetes mellitus type 2, uncontrolled (Acute) Hypomagnesemia Surgical History History of cholecystectomy (Chronic) History of tonsillectomy and adenoidectomy (Chronic) Hx of total knee arthroplasty (Chronic) S/P lobectomy of lung (Chronic) "left upper lobectomy for adenoCa" On 08/05/16 16:30 Edie Mcfarland wrote "L side @ [facility] 05/25/16" H/O esophagogastroduodenoscopy (Chronic) "01/26/2015- LA Grade B reflux esophagitis, gastritis; Dr. Major" H/O colonoscopy (Chronic) " 04/22/2013- Mildly congested and erythematous mucosa in the ascending colon. One 1 mm polyp in the ascending colon resected. One benign appearing 1 mm polyp in the rectum resected. Internal hemorrhoids; Dr. Demarco" Status post insertion of intrathecal pump (Resolved) explanted Social History Current Living Situation: Alone Other Information That Helps Us Care for You: No Feels Safe at Home: Yes Safety Concerns: Feels Safe At This Time Smoking Status: Never smoker Tobacco Type: smokeless tobacco Do You Dip or Chew Tobacco: Yes Hx Alcohol Use: No Hx Substance Use: Yes substance use type: prescription drug Last Used Substance : Just Prior to Arrival Beliefs That Will Affect Care: None Preferred Language: Kittitian Communication Ability: Effective Photographic Process Attendant Required: No Review of Systems Constitutional: Negative for fever, chills, sweats Eyes: Negative for eye pain, photophobia, drainage Ear, nose, mouth, throat: Negative for ear pain, nasal congestion, mouth lesions , change in voice Respiratory: Positive for wheezing, sputum production, positive for pleuritic chest pain Cardiovascular: Negative for palpitations, calf pain Gastrointestinal: Negative for abdominal pain, belching, bloating Genitourinary: Negative for dysuria, urinary incontinence, urinary urgency Musculoskeletal: Negative for deformities Integumentary: Negative for nail changes, skin yellowing, pruritus Neurological: Negative for abnormal speech, abnormal tongue movements Physical Exam 2 Vital Signs (Past 24 Hours): Last Vital Signs Temp 36.9 C 05/12/18 07:00 Pulse 86 05/12/18 07:46 Resp 18 05/12/18 07:46 BP 117/78 05/12/18 07:00 Pulse Ox 97 05/12/18 07:46 Physical Exam: Constitutional: Well-developed, normal weight, and cooperative on examination eating breakfast Psych: Awake, alert, and oriented �3 with normal affect and mood. Recent memory appears grossly intact Eyes: Pupils are equally round and reactive to light with normal size pupils, eyelids appear normal Ear, nose, mouth, and throat: Moist nasal and oral membranes, lips and tongues appear normal, no external ear abnormalities are noted Neck: The trachea is midline without deviation and no thyromegaly is noted Respiratory: Normal respiratory effort without distress, no audible wheezes or rhonchi, patient is noticed coughing multiple times during the examination with obvious pleuritic type discomfort left greater than right CV: Normal S1 and S2, carotid upstroke is within normal limits Chest: There is well-healed left thoracoscopy sites and chest tube insertion sites which are well-healed without allodynia. The patient has generalized pain over his ninth and 10th ribs on the left and eighth and ninth ribs on the right. GI/abdomen: Non-tender without guarding, no masses noted Musculoskeletal: Head is normocephalic and atraumatic, gait is not observed Cervical: Lordotic curve: Normal Range of motion is normal with extension, flexion, side- bending, rotation Strength: Strength is equal bilaterally with 5 out of 5 strength in all planes Sensation of upper extremities: Intact bilaterally Thoracic: Kyphotic curve: Normal Range of motion is normal with extension, flexion, side- bending, rotation No appreciable spasm. Lumbar: Lordotic curve: Normal Strength: Strength is grossly equal bilaterally with 5 out of 5 strength in all planes Sensation of lower extremities: Intact bilaterally Skin: No rashes, lesions, ulcers, and duration are noted Neuro: No nystagmus noted, the tongue is midline, the patient is able to rotate their head bilaterally : Deferred Results & Data Diagnostic Findings Patient: NIKHIL MARTINS Date: 05/05/18 MR#: [id number]: [address] Acct ID:[id number]: Date: 1965[facility] Zip: [place] [id number] Age: 52Location: 2S Sex: M Room/Bed: [facility] Att Phy: Stephon Vernon M.D.Diagnosis: CHEST PAIN, SOB Ariadna Phy: PCP,NO Service Date: 05/09/18 Fam Phy: Interpreting Phy: Russell Ty MD Admit Phy: Aguila Saenz MD Ordering Phy: Antonino Car MD cc: ~ CT SCAN OF THE CHEST WITHOUT IV CONTRAST CLINICAL HISTORY: Dyspnea. COMPARISON STUDY: Chest CT scans dated 11/22/2017 and 01/20/2017. Chest x-ray dated 05/08/2018. TECHNIQUE: CT scan of the thorax was performed from the thoracic inlet to the upper abdomen. Images are reviewed in the axial, sagittal, and coronal planes. IV contrast was not administered for this examination as per the referring clinician. A dose lowering technique was utilized adhering to the principles of ALARA. CT DOSE: 394.56 mGy.cm FINDINGS: Thyroid: Imaged portions of the thyroid gland are normal in size and attenuation. A 10 mm low-attenuation nodule is noted in the right lobe. Thoracic aorta: The thoracic aorta is normal in caliber and demonstrates standard 3-vessel arch anatomy. Heart: The heart is top normal in size and without pericardial effusion. There is diminished attenuation of the cardiac blood pool as compared to the myocardium suggesting anemia. There are coronary artery calcifications. Lungs and pleural spaces: Mild emphysematous change is noted. Again seen are postoperative changes and volume loss from left-sided pulmonary resection with parenchymal scarring in the left upper lung. There is a small left pleural effusion. Patchy airspace consolidation is seen at the left lung base. Minimal patchy airspace consolidation is seen at the right lung base on image #168. 3 mm right apical pulmonary nodules are seen on images #42 and #53. These are unchanged from 01/20/2017 and of doubtful significance. No new pulmonary nodule is identified. The trachea and central airways are clear. Mediastinum: There is no mediastinal lymphadenopathy. Kaelyn: Not well assessed without IV contrast. Axillae: There is no axillary lymphadenopathy. Upper abdomen: A small hiatal hernia is noted. The stomach is distended with ingested material. Stimulator leads are seen along the distal stomach. The gallbladder is surgically absent. The spleen is mildly enlarged measuring 13.6 cm in length. Moderate fecal retention is noted throughout the imaged colon. Skeletal structures: No lytic or blastic bony lesions are seen. Soft tissues: There is subcutaneous soft tissue edema seen throughout the right chest wall, greatest along the pectoralis muscle. There is a punctate focus of subcutaneous gas seen on axial image #1. IMPRESSION: 1. Emphysema and postoperative change from left upper lobe pulmonary resection. 2. There is patchy airspace consolidation throughout the left lung base with a small left pleural effusion. Additionally, there is minimal patchy consolidation at the right lung base. The appearance suggests a multifocal infectious/inflammatory pneumonitis. Clinical correlation will be essential. 3. There is soft tissue edema seen throughout the right chest wall, greatest along the pectoralis muscle. Additionally, there is a punctate focus of subcutaneous gas. Correlate clinically for evidence of infection/cellulitis. 4. Additional findings as above. In addition I personally reviewed these films with the radiologist and no rib fractures left or right were found to be present.
[2018-05-12] MEDS: OXYCODONE HCL IR 5 MG TAB (IMMEDIATE RELEASE) PO PRN (10:13)
[2018-05-12] MEDS: LIDOCAINE 5% 1 PATCH TD SCH (10:39)
--- NOTE | 2018-05-12 10:39 | Pharmacy Report ---
Pharmacy Glycemic Short Note 2 - Date of Service May 12, 2018 - Glycemic Short BSG Results (Last 24 hours): 05/11/18 05/11/18 05/11/18 11:23 15:23 16:17 Glucose 171 H POC Glucose 93 230 H 05/11/18 05/12/18 20:18 07:48 Glucose POC Glucose 100 H 312 H OUTPATIENT ANTIDIABETIC REGIMEN: * Basaglar 15 units SQ HS + Humalog SSI * A1c = 8.9 % 05/06/17 ASSESSMENT: * 52 yr old T2DM male admitted with chest pain, shortness of breath, IVAN and hyponatremia likely due to vomiting and diarrhea. * Started on steroid taper the evening of 05/11; 40 mg x 2 days, then decrease by 10 mg every 2 days * Changes needed to insulin regimen: * Fasting BSG of 312 mg/dL this AM is likely due to evening dose of prednisone. An extra 5 units of Lantus will be given this morning. * Novolog carb ratio was tightened to 10 yesterday evening after prednisone was added. Will further tighten carb ratio today (lunch BSG was 295 mg/dL). I have also ordered a 5 unit regular insulin IV bolus x 1. If BSG improvement is not seen in the next 24 hours, I will consider the addition of a once daily dose of NPH to cover steroid peak. PLAN FOR INPATIENT GLYCEMIC CONTROL: * Basal insulin * Extra 5 units of Lantus SQ this AM * Continue Lantus 15-20 units SQ qHS * 15 units for BSG < 140 mg/dL * 20 units for BSG 140 mg/dL or more * Bolus insulin - tighten carb ratio * NovoLog per scale ACHS or Q6hrs while NPO * Goal Range: Low 120 mg/dL - High 150 mg/dL * Correction Factor: 40 mg/dL/unit * Nutritional / Prandial insulin per carb ratio of 1 unit per 8 grams CHO consumed PLAN FOR DISCHARGE: * A1c of 8.9% is above goal based on patient age and co-morbidities * Recommend follow up with outpatient provider for dose titration
[2018-05-12] MEDS ORDERED: INSULIN HUMAN REGULAR PER UNIT 5 UNITS in SYRINGE 4.95 ML IV ONE (13:15)
[2018-05-12 15:59] LABS: BUN Creatinine Ratio 11.8 (10-20); Calcium 8.5 mg/dl (8.5-10.1); Creatinine Clr Calc Pharmacy 49.4 ml/min; Est GFR (African American) 46.8; Est GFR (Non-African American) 40.4; Potassium 4.8 mmol/L (3.5-5.1)
[2018-05-12] MEDS ORDERED: SODIUM CHLORIDE 0.9% 1000ML 1,000 ML IV SCH (20:15)
--- NOTE | 2018-05-12 20:16 | Hospitalist Progress Note ---
Date of Service May 12, 2018 Assessment & Plan (1) IVAN (acute kidney injury): Patient with acute kidney injury on CKD likely due to pre-renal azotemia in setting of diarrhea and vomiting. Urinalysis showed concentrated urine and a urine sodium of 17. crea increasing NSS ordered monitor appreciate Nephro consult (2) Acute hyponatremia: Patient admitted with the sodium of 128. Likely secondary to loss from GI tract Na improved to 137 (3) Nausea and vomiting: KUB Xray: IMPRESSION: 1. No acute intra-abdominal pathology. 2. Gastric stimulator leads now project over the gastric antrum, which represents a change from prior exam. - evaluated by GI given Emend symptoms continue to improve Advance diet to regular diet , tolerating well (4) Gastroparesis: Has history ongoing gastroparesis secondary to diabetes Has a gastric stimulator management as noted above (5) Pneumonia: Patient admitted with shortness of breath. Chest x-ray no signs of volume overload. no pneumonia and/or CHF identified 05/08/18 Reported increased productive cough, shortness of breath after exertion Repeat chest x-ray showing possible left middle to lower lobe pneumonia D-dimer elevated 1000 Start empiric ceftriaxone and doxycycline Get sputum cultures VQ scan: indeterminate Doppler of the lower extremities: no DVT 05/09/18 still has dyspnea, cough CT chest ordered broaden antbiotics from Ceftri to Zosyn + Doxy add Mucomyst D dimer elevated, VQ scan indeterminate, Doppler US of legs: negative will consult Pulmonology [facility] 05/10/[address] Granados likely aspiration pna change ABx to Clindamycin only continue nebs, mucomyst Clinda will also cover chest wall cellulitis monitor PRN Flexeril ordered 05/12 still has some cough continue Clinda and nebs Pain Mgt consulted for chest wall pain (6) Hypertension: Patient with hypertension controlled on metoprolol and lisinopril. Lisinopril was on hold due to acute kidney injury. BP elevated additional Amlodipine ordered Continue metoprolol for now, monitor BP improving (7) Seizure disorder: Last seizures more than a month ago PO Keppra resumed (8) Diabetic peripheral neuropathy: Has severe peripheral neuropathy chronic (9) Chest pain: Complained of exertional chest pain EKG and cardiac enzymes Echo; EF was 55-60%, moderate concentric LVH with sigmoid septum no LV or motion abnormality and grade 1 diastolic dysfunction Appreciate cardiology input Chest pain seems to be noncardiac (10) DVT prophylaxis: SCDs, early ambulation heparin subcutaneous every 8 hours (11) Discharge planning issues: anticipate d/c home when medically stable Subjective ff up for nausea, acute renal failure, etc. seen resting in bed, comfortable states chest wall pain is getting worsening, worse with coughing still has productive cough and some dyspnea denies nausea tolerating diet well denies other symptoms Physical Exam 2 Vital Signs (Past 24 Hours): Last Vital Signs Temp 36.8 C 05/12/18 19:26 Pulse 101 H 05/12/18 19:26 Resp 18 05/12/18 19:26 BP 134/80 05/12/18 19:26 Pulse Ox 93 05/12/18 19:26 Physical Exam: General- oriented x 3, not in distress, speaks in sentences with no effort or accessory muscle use Eyes- anicteric Neck- no JVD Lungs- decreased BS left base but clear clear on the right right chest walL edema resolved, mild tenderness Heart- normal rate, regular rhythm; no murmurs Abdomen- normal bowel sounds, nondistended, soft, nontender Extremities- no pretibial edema, no calf tenderness Neuro- alert, oriented x 3; no gross focal neurologic deficits Skin- warm & dry Results & Data Laboratory Results Laboratory Results - last 24 hr 05/11/18 05/12/18 05/12/18 20:18 07:48 12:06 Sodium Potassium Chloride Carbon Dioxide Anion Gap BUN Creatinine Est Cr Clr Drug Dosing Est GFR ( Amer) Est GFR (Non-Af Amer) BUN/Creatinine Ratio Glucose POC Glucose 100 H 312 H 295 H Calcium 05/12/18 05/12/18 05/12/18 15:28 16:54 20:03 Sodium 136 Potassium 4.8 Chloride 104 Carbon Dioxide 23 Anion Gap 9.0 BUN 22 H Creatinine 1.87 H Est Cr Clr Drug Dosing 49.4 Est GFR ( Amer) 46.8 Est GFR (Non-Af Amer) 40.4 BUN/Creatinine Ratio 11.8 Glucose 129 H POC Glucose 184 H 327 H Calcium 8.5 _ (1) Chest pain Chest pain type: unspecified Ischemic chest pain type: Qualified Code(s): R07.9 - Chest pain, unspecified
[2018-05-12] MEDS ORDERED: INSULIN HUMAN REGULAR PER UNIT 8 UNITS in SYRINGE 7.92 ML IV ONE (20:30)
[2018-05-12] MEDS: INSULIN GLARGINE SOLOSTAR 100 UNITS/ML 3 ML PEN SC SCH (21:21)
[2018-05-13] MEDS: HYDROmorphone INJ 0.5 MG/0.5 ML SYR IV PRN ×6 (00:05→23:50)
[2018-05-13] MEDS ORDERED: INSULIN PROTOCOL GOAL RANGE ONE (00:14)
[2018-05-13] MEDS ORDERED: INSULIN REGULAR 250 UNITS in SODIUM CHLORIDE 0.9% 247.5 ML IV SCH (00:15)
[2018-05-13] MEDS ORDERED: SEVERE STRESS LEVEL ONE (00:15)
[2018-05-13] MEDS ORDERED: SODIUM CHLORIDE 0.9% 1000ML 1,000 ML IV STA (00:17)
[2018-05-13] MEDS ORDERED: INSULIN GLARGINE SOLOSTAR 100 UNITS/ML 3 ML PEN SC SCH (00:19)
[2018-05-13] MEDS ORDERED: INSULIN ASPART 100 UNITS/ML 3 ML PEN SC SCH ×4 (00:19→09:00)
[2018-05-13] MEDS ORDERED: GLUCOSE 10 TABS/TUBE PO PRN (00:25)
[2018-05-13] MEDS ORDERED: GLUCOSE 40% GEL 15 GM TUBE PO PRN (00:25)
[2018-05-13] MEDS ORDERED: GLUCAGON FOR INJ 1 MG VIAL IM PRN (00:25)
[2018-05-13] MEDS ORDERED: DEXTROSE 50% 50 ML SYRINGE IV PRN (00:25)
[2018-05-13] MEDS ORDERED: INSULIN HUMAN REGULAR IV BOLUS 3 UNITS in SYRINGE 0 ML IV ONE (00:30)
[2018-05-13] MEDS: INSULIN REGULAR 250 UNITS in SODIUM CHLORIDE 0.9% 247.5 ML IV SCH ×4 (00:58→12:35)
[2018-05-13] MEDS: IPRATROPIUM BROMIDE NEB SOLN 0.02% 2.5 ML VIAL NEB SCH ×4 (01:34→20:07)
[2018-05-13] MEDS: LEVALBUTEROL HCL 0.63 MG/3 ML NEB NEB SCH ×4 (01:34→20:07)
[2018-05-13] MEDS: CLINDAMYCIN 600 MG in DEXTROSE 5% 50 ML IV SCH ×2 (02:11→08:54)
[2018-05-13] MEDS: CYCLOBENZAPRINE HCL 5 MG TAB PO PRN ×2 (04:58→17:48)
[2018-05-13] MEDS: HEPARIN SOD 5,000 UNIT/0.5 ML VIAL SQ SCH ×3 (06:21→20:25)
[2018-05-13] MEDS: GABAPENTIN 300 MG CAP PO SCH ×2 (08:10→20:24)
[2018-05-13] MEDS: AMLODIPINE BESYLATE 5 MG TAB PO SCH (08:10)
[2018-05-13] MEDS: predniSONE 20 MG TAB PO SCH (08:10)
[2018-05-13] MEDS: PANTOprazole 40 MG TAB PO SCH (08:10)
[2018-05-13] MEDS: ASPIRIN 81 MG ECTAB PO SCH (08:10)
[2018-05-13] MEDS: levETIRAcetam 500 MG TAB PO SCH ×2 (08:10→20:24)
[2018-05-13] MEDS: METOPROLOL TARTRATE 25 MG TAB PO SCH ×2 (08:10→20:25)
[2018-05-13] MEDS: MULTIVITAMIN TAB PO SCH (08:10)
[2018-05-13] MEDS: LIDOCAINE 5% 1 PATCH TD SCH (08:11)
[2018-05-13] MEDS: FERROUS SULFATE 325 MG TAB PO SCH (08:11)
[2018-05-13] MEDS: POLYETHYLENE (MIRALAX) 17 GM PACK PO SCH (08:11)
[2018-05-13] MEDS: CHECK FENTANYL PATCH PLACEMENT SCH ×3 (08:12→23:55)
[2018-05-13] MEDS: INSULIN ASPART 100 UNITS/ML 3 ML PEN SC SCH ×4 (09:03→20:26)
--- NOTE | 2018-05-13 09:59 | Pharmacy Report ---
Pharmacy Glycemic Short Note 2 - Date of Service May 13, 2018 - Glycemic Short BSG Results (Last 24 hours): 05/12/18 05/12/18 05/12/18 12:06 15:28 16:54 Glucose 129 H POC Glucose 295 H 184 H 05/12/18 05/12/18 05/13/18 20:03 23:55 01:58 Glucose POC Glucose 327 H 458 H* 427 H* 05/13/18 05/13/18 05/13/18 03:04 04:07 05:21 Glucose POC Glucose 407 H* 370 H* 303 H 05/13/18 05/13/18 05/13/18 06:19 07:16 08:57 Glucose POC Glucose 264 H 159 H 573 H* 05/13/18 05/13/18 09:00 09:01 Glucose POC Glucose 170 H 172 H OUTPATIENT ANTIDIABETIC REGIMEN: * Basaglar 15 units SQ HS + Humalog SSI * A1c = 8.9 % 05/06/17 ASSESSMENT: * 52 yr old T2DM male admitted with chest pain, shortness of breath, IVAN and hyponatremia likely due to vomiting and diarrhea. * Started on steroid taper the evening of 05/11; prednisone decreased to 30 mg daily today (day 1) * Despite giving additional Lantus in the AM and tightening Novolog carb ratio to combat steroid induced hyperglycemia, Jeff experienced severe hyperglycemia last evening (BSG 327, 458 mg/dL). * Patient was started on IV insulin infusion last evening around midnight. BSG at goal since ~0700. Current infusion rate of 4 units/hr. * Discussed case with Hospitalist. I feel that we have two options; continue IV insulin infusion or initiate a once daily NPH dose qAM and allow the infusion to hopefully turn itself off in 4-6 hours. Decision was made to continue IV insulin infusion. * Will continue to overlap basal insulin with IV infusion to aid in easier titration off infusion at a later time. PLAN FOR INPATIENT GLYCEMIC CONTROL: * Continue IV insulin infusion per protocol * goal range: 140 - 180 mg/dL * Basal insulin * Continue Lantus 15-20 units SQ qHS * 15 units for BSG < 140 mg/dL * 20 units for BSG 140 mg/dL or more * Bolus insulin * NovoLog PCHS while on IV infusion * Goal Range: Low 140 mg/dL - High 180 mg/dL * Carb ratio per infusion calculator PLAN FOR DISCHARGE: * A1c of 8.9% is above goal based on patient age and co-morbidities * Recommend follow up with outpatient provider for dose titration
[2018-05-13 15:51] LABS: BUN Creatinine Ratio 17.5 (10-20); Calcium 8.3 mg/dl (8.5-10.1); Est GFR (African American) 54.5; Potassium 4.6 mmol/L (3.5-5.1)
[2018-05-13] MEDS: OXYCODONE HCL IR 5 MG TAB (IMMEDIATE RELEASE) PO PRN ×2 (16:33→22:36)
[2018-05-13] MEDS: CLINDAMYCIN HCL 150 MG CAP PO SCH ×2 (16:34→20:25)
--- NOTE | 2018-05-13 16:41 | XRay Report ---
XR ribs BI min 4V w CXR1V HISTORY: 52 years-old Male B/L RIB PAIN acute atypical chest pain with bilateral rib pain. Subacute or chronic fracture of the anterior right fifth rib seen on comparison study. COMPARISON: Chest radiograph May 08, 2017, chest CT May 09, 2017 TECHNIQUE: AP view the chest with 4 views of the bilateral ribs FINDINGS: Postoperative changes of the left upper lung with chronic scarring. Cardiac silhouette is unremarkabl e. Minimal persistent ill-defined subsegmental bibasilar opacities. No pneumothorax. Mild blunting of the left costophrenic angle. No large pleural effusion or overt pulmonary edema. Battery pack projec ts over the left abdomen with 2 leads extending medially. Prior cholecystectomy. No acute slice rib fracture notified. IMPRESSION: 1. Persistent subtle bibasilar opacities suggest atelectasis or mild pneumonitis as described on [facility] chest CT. 2. Blunting of the left costophrenic angle suggests atelectasis/scarring versus trace effusion. 3. No acute displaced rib fracture. The above report was generated using voice recognition software. It may contain grammatical, syntax o r spelling errors. Electronically signed by: Richard Metzger M.D. 05/13/2018 4:39 PM
[2018-05-13] MEDS: fentaNYL 100 MCG/HR TDSY TD SCH (17:30)
--- NOTE | 2018-05-13 17:54 | Hospitalist Progress Note ---
Date of Service May 13, 2018 Assessment & Plan (1) IVAN (acute kidney injury): Patient with acute kidney injury on CKD likely due to pre-renal azotemia in setting of diarrhea and vomiting. Urinalysis showed concentrated urine and a urine sodium of 17. initially improved with LR, Nephro consulted crea increasing again, NSS ordered crea improved today monitor appreciate Nephro consult (2) Acute hyponatremia: Patient admitted with the sodium of 128. Likely secondary to loss from GI tract Na improved (3) Nausea and vomiting: KUB Xray: IMPRESSION: 1. No acute intra-abdominal pathology. 2. Gastric stimulator leads now project over the gastric antrum, which represents a change from prior exam. - evaluated by GI given Emend symptoms continue to improve Advance diet to regular diet , tolerating well (4) Gastroparesis: Has history ongoing gastroparesis secondary to diabetes Has a gastric stimulator management as noted above (5) Pneumonia: Reported increased productive cough, shortness of breath after exertion Repeat chest x-ray showing possible left middle to lower lobe pneumonia CT chest: There is patchy airspace consolidation throughout the left lung base with a small left pleural effusion. Additionally, there is minimal patchy consolidation at the right lung base. The appearance suggests a multifocal infectious/inflammatory pneumonitis. Clinical correlation will be essential. D-dimer elevated 1000 VQ scan: indeterminate Doppler of the lower extremities: no DVT evaluated by Pulmonary given Zosyn and Doxy initially PNA felt to be aspiration related changed ABx to Clindamycin only given nebs, mucomyst respiratory status stable now CT chest also showing right chest wall cellulitis improving clinically with antibiotics will need total of 7 days Clindamycin (6) Hypertension: Patient with hypertension controlled on metoprolol and lisinopril. Lisinopri held due to acute kidney injury. BP elevated additional Amlodipine ordered continue to monitor BP (7) Seizure disorder: Last seizures more than a month ago PO Keppra resumed (8) Diabetic peripheral neuropathy: Has severe peripheral neuropathy chronic (9) Chest pain: Complained of exertional chest pain EKG and cardiac enzymes Echo; EF was 55-60%, moderate concentric LVH with sigmoid septum no LV or motion abnormality and grade 1 diastolic dysfunction Restoration Officer consulted, chest pain non cardiac (10) DVT prophylaxis: SCDs, early ambulation heparin subcutaneous every 8 hours (11) Discharge planning issues: anticipate d/c home when medically stable Subjective ff up for nausea/vomiting, aspiration pneumonial, chest wall pain sitting in bed, appears comfortable states he still has chest wall pain, mostly in the left subcostal region, worse with coughing/deep inspiration still has some reflux symptoms but no nausea/vomiting, tolerating diet BSGs elevated, on insulin drip no other symptoms Physical Exam 2 Vital Signs (Past 24 Hours): Last Vital Signs Temp 36.9 C 05/13/18 15:13 Pulse 70 05/13/18 15:13 Resp 18 05/13/18 15:13 BP 157/90 H 05/13/18 15:13 Pulse Ox 100 05/13/18 15:13 Physical Exam: General- oriented x 3, not in distress, speaks in sentences with no effort or accessory muscle use Eyes- anicteric Neck- no JVD Lungs- clear BS BL, no rales/wheezes Right chest wall: no edema, (+) mild tenderness Heart- normal rate, regular rhythm; no murmurs Abdomen- normal bowel sounds, nondistended, soft, nontender Extremities- no pretibial edema, no calf tenderness Neuro- alert, oriented x 3; no gross focal neurologic deficits Skin- warm & dry Results & Data Laboratory Results Laboratory Results - last 24 hr 05/12/18 05/12/18 05/13/18 20:03 23:55 01:58 Sodium Potassium Chloride Carbon Dioxide Anion Gap BUN Creatinine Est Cr Clr Drug Dosing Est GFR ( Amer) Est GFR (Non-Af Amer) BUN/Creatinine Ratio Glucose POC Glucose 327 H 458 H* 427 H* Calcium 05/13/18 05/13/18 05/13/18 03:04 04:07 05:21 Sodium Potassium Chloride Carbon Dioxide Anion Gap BUN Creatinine Est Cr Clr Drug Dosing Est GFR ( Amer) Est GFR (Non-Af Amer) BUN/Creatinine Ratio Glucose POC Glucose 407 H* 370 H* 303 H Calcium 05/13/18 05/13/18 05/13/18 06:19 07:16 08:57 Sodium Potassium Chloride Carbon Dioxide Anion Gap BUN Creatinine Est Cr Clr Drug Dosing Est GFR ( Amer) Est GFR (Non-Af Amer) BUN/Creatinine Ratio Glucose POC Glucose 264 H 159 H 573 H* Calcium 05/13/18 05/13/18 05/13/18 09:00 09:01 09:59 Sodium Potassium Chloride Carbon Dioxide Anion Gap BUN Creatinine Est Cr Clr Drug Dosing Est GFR ( Amer) Est GFR (Non-Af Amer) BUN/Creatinine Ratio Glucose POC Glucose 170 H 172 H 171 H Calcium 05/13/18 05/13/18 05/13/18 11:00 11:15 11:29 Sodium Potassium Chloride Carbon Dioxide Anion Gap BUN Creatinine Est Cr Clr Drug Dosing Est GFR ( Amer) Est GFR (Non-Af Amer) BUN/Creatinine Ratio Glucose POC Glucose 121 H 116 H 103 H Calcium 05/13/18 05/13/18 05/13/18 11:47 12:03 12:15 Sodium Potassium Chloride Carbon Dioxide Anion Gap BUN Creatinine Est Cr Clr Drug Dosing Est GFR ( Amer) Est GFR (Non-Af Amer) BUN/Creatinine Ratio Glucose POC Glucose 114 H 138 H 149 H Calcium 05/13/18 05/13/18 05/13/18 13:16 14:19 14:53 Sodium Potassium Chloride Carbon Dioxide Anion Gap BUN Creatinine Est Cr Clr Drug Dosing Est GFR ( Amer) Est GFR (Non-Af Amer) BUN/Creatinine Ratio Glucose POC Glucose 180 H 195 H 185 H Calcium 05/13/18 05/13/18 05/13/18 15:22 15:23 16:26 Sodium 134 L Potassium 4.6 Chloride 105 Carbon Dioxide 24 Anion Gap 5.0 BUN 29 H Creatinine 1.65 H Est Cr Clr Drug Dosing 57.0 Est GFR ( Amer) 54.5 Est GFR (Non-Af Amer) 47.0 BUN/Creatinine Ratio 17.5 Glucose 185 H POC Glucose 195 H 169 H Calcium 8.3 L 05/13/18 05/13/18 05/13/18 17:23 17:25 18:23 Sodium Potassium Chloride Carbon Dioxide Anion Gap BUN Creatinine Est Cr Clr Drug Dosing Est GFR ( Amer) Est GFR (Non-Af Amer) BUN/Creatinine Ratio Glucose POC Glucose 241 H 244 H 270 H Calcium _ (1) Chest pain Chest pain type: unspecified Ischemic chest pain type: Qualified Code(s): R07.9 - Chest pain, unspecified
[2018-05-13] MEDS: INSULIN GLARGINE SOLOSTAR 100 UNITS/ML 3 ML PEN SC SCH (20:26)
[2018-05-14] MEDS: CYCLOBENZAPRINE HCL 5 MG TAB PO PRN ×2 (00:18→21:01)
[2018-05-14] MEDS: INSULIN REGULAR 250 UNITS in SODIUM CHLORIDE 0.9% 247.5 ML IV SCH ×2 (00:52→08:44)
[2018-05-14] MEDS: INSULIN ASPART 100 UNITS/ML 3 ML PEN SC SCH ×6 (00:55→21:15)
[2018-05-14] MEDS: LEVALBUTEROL HCL 0.63 MG/3 ML NEB NEB SCH ×5 (02:21→20:44)
[2018-05-14] MEDS: IPRATROPIUM BROMIDE NEB SOLN 0.02% 2.5 ML VIAL NEB SCH ×5 (02:21→20:43)
[2018-05-14] MEDS: HYDROmorphone INJ 0.5 MG/0.5 ML SYR IV PRN ×4 (03:52→21:01)
[2018-05-14] MEDS: HEPARIN SOD 5,000 UNIT/0.5 ML VIAL SQ SCH ×3 (05:33→21:15)
[2018-05-14] MEDS: levETIRAcetam 500 MG TAB PO SCH ×2 (07:38→21:14)
[2018-05-14] MEDS: GABAPENTIN 300 MG CAP PO SCH ×2 (07:39→21:14)
[2018-05-14] MEDS: predniSONE 20 MG TAB PO SCH (07:39)
[2018-05-14] MEDS: ASPIRIN 81 MG ECTAB PO SCH (07:39)
[2018-05-14] MEDS: MULTIVITAMIN TAB PO SCH (07:40)
[2018-05-14] MEDS: CLINDAMYCIN HCL 150 MG CAP PO SCH ×4 (07:40→21:14)
[2018-05-14] MEDS: AMLODIPINE BESYLATE 5 MG TAB PO SCH (07:40)
[2018-05-14] MEDS: METOPROLOL TARTRATE 25 MG TAB PO SCH ×2 (07:40→21:14)
[2018-05-14] MEDS: PANTOprazole 40 MG TAB PO SCH ×2 (07:40→21:14)
[2018-05-14] MEDS: FERROUS SULFATE 325 MG TAB PO SCH (07:41)
[2018-05-14] MEDS: LIDOCAINE 5% 1 PATCH TD SCH (07:41)
[2018-05-14] MEDS: CHECK FENTANYL PATCH PLACEMENT SCH ×2 (07:41→16:36)
[2018-05-14] MEDS ORDERED: INSULIN HUMAN NPH SC ONE (08:45)
[2018-05-14] MEDS: POLYETHYLENE (MIRALAX) 17 GM PACK PO SCH (09:09)
--- NOTE | 2018-05-14 11:31 | Pharmacy Report ---
Pharmacy Glycemic Short Note 2 - Date of Service May 14, 2018 - Glycemic Short BSG Results (Last 24 hours): 05/13/18 05/13/18 05/13/18 11:00 11:15 11:29 Glucose POC Glucose 121 H 116 H 103 H 05/13/18 05/13/18 05/13/18 11:47 12:03 12:15 Glucose POC Glucose 114 H 138 H 149 H 05/13/18 05/13/18 05/13/18 13:16 14:19 14:53 Glucose POC Glucose 180 H 195 H 185 H 05/13/18 05/13/18 05/13/18 15:22 15:23 16:26 Glucose 185 H POC Glucose 195 H 169 H 05/13/18 05/13/18 05/13/18 17:23 17:25 18:23 Glucose POC Glucose 241 H 244 H 270 H 05/13/18 05/13/18 05/13/18 19:21 20:21 21:29 Glucose POC Glucose 196 H 169 H 164 H 05/13/18 05/14/18 05/14/18 22:32 00:04 00:41 Glucose POC Glucose 171 H 196 H 226 H 05/14/18 05/14/18 05/14/18 01:39 02:39 03:44 Glucose POC Glucose 240 H 190 H 157 H 05/14/18 05/14/18 05/14/18 04:31 05:30 06:11 Glucose POC Glucose 168 H 126 H 93 05/14/18 05/14/18 05/14/18 06:38 06:58 07:22 Glucose POC Glucose 113 H 130 H 145 H 05/14/18 05/14/18 05/14/18 08:32 09:36 11:01 Glucose POC Glucose 131 H 102 H 84 OUTPATIENT ANTIDIABETIC REGIMEN: * Basaglar 15 units SQ HS + Humalog SSI * A1c = 8.9 % 05/06/17 ASSESSMENT: 05/14 * Mr. Hamilton has remained on the insulin drip but has had to start and stop the drip several times since yesterday. At this point, I feel it's appropriate to transition off the insulin drip and utilize the addition of NPH to cover the once daily prednisone. I spoke with the hospitalist to notify him of the same. * Looking at an average of insulin drip rates over the past 24 hours, he has received ~70 units of insulin just from the drip. This is in addition to the 15 of Lantus and 22 of Novolog. TDD estimated at ~100 units/day. * Will initiate once daily NPH to coincide with the once daily prednisone. This is used as it mimics the kinetics of the prednisone. 0.3 units/kg is recommended for prednisone 30 mg. This is in addition to his usual basal dose. Ideally, this would cover the prandial doses as well but his requirements have been so high that I will keep a CR for now. 05/13 * 52 yr old T2DM male admitted with chest pain, shortness of breath, IVAN and hyponatremia likely due to vomiting and diarrhea. * Started on steroid taper the evening of 05/11; prednisone decreased to 30 mg daily today (day 05/07) * Despite giving additional Lantus in the AM and tightening Novolog carb ratio to combat steroid induced hyperglycemia, Jeff experienced severe hyperglycemia last evening (BSG 327, 458 mg/dL). * Patient was started on IV insulin infusion last evening around midnight. BSG at goal since ~0700. Current infusion rate of 4 units/hr. * Discussed case with Hospitalist. I feel that we have two options; continue IV insulin infusion or initiate a once daily NPH dose qAM and allow the infusion to hopefully turn itself off in 4-6 hours. Decision was made to continue IV insulin infusion. * Will continue to overlap basal insulin with IV infusion to aid in easier titration off infusion at a later time. PLAN FOR INPATIENT GLYCEMIC CONTROL: * Stop insulin infusion 6 hours after 1st dose of NPH, or sooner if directed per insulin drip calculator * NPH 22 units (0.3 units/kg based on admission wt) x 1 this AM * Further doses dependent on BSGs from today * Basal insulin - no change * Continue Lantus 15-20 units SQ qHS * 15 units for BSG < 150 mg/dL * 20 units for BSG 150 mg/dL or more * Bolus insulin * NovoLog ACHS * Goal Range: Low 140 mg/dL - High 180 mg/dL * Correction factor: 20 mg/dL/unit * Carb ratio: 1 unit per 8 gm CHO consumed (was initially going to be tighter but BSG at 84 mg/dL now after NPH dose given) PLAN FOR DISCHARGE: * A1c of 8.9% is above goal based on patient age and co-morbidities * Recommend follow up with outpatient provider for dose titration
[2018-05-14] MEDS: FUROSEMIDE 20 MG TAB PO SCH (12:56)
[2018-05-14] MEDS ORDERED: DC IV INSULIN INFUSION 1 EA DEVI ONE (14:30)
[2018-05-14] MEDS: INSULIN GLARGINE SOLOSTAR 100 UNITS/ML 3 ML PEN SC SCH (21:15)
--- NOTE | 2018-05-14 21:42 | Hospitalist Progress Note ---
Date of Service May 14, 2018 Assessment & Plan (1) IVAN (acute kidney injury): Patient with acute kidney injury on CKD likely due to pre-renal azotemia in setting of diarrhea and vomiting. Urinalysis showed concentrated urine and a urine sodium of 17. has acute kidney injury on this admission which improved after IV fluids however now has been having worsening leg edema -no history of systolic heart dysfunction based on recent echocardiogram -started on Lasix 20 mg daily on 05/14/18 to improve leg edema and ambulation, trend renal function while on diuretic (2) Acute hyponatremia: Patient admitted with the sodium of 128. Likely secondary to loss from GI tract The serum sodium has normalized early on this hospital admission and has resolved (3) Nausea and vomiting: KUB Xray: IMPRESSION: 1. No acute intra-abdominal pathology. 2. Gastric stimulator leads now project over the gastric antrum, which represents a change from prior exam. - evaluated by GI, had been given Emend, symptoms continue to improve (4) Gastroparesis: Has history ongoing gastroparesis secondary to diabetes Has a gastric stimulator abdominal discomfort from gastroparesis pantoprazole BID to reduce gastric reflux symptoms (5) Pneumonia: Reported increased productive cough, shortness of breath after exertion Repeat chest x-ray showing possible left middle to lower lobe pneumonia CT chest: There is patchy airspace consolidation throughout the left lung base with a small left pleural effusion. Additionally, there is minimal patchy consolidation at the right lung base. The appearance suggests a multifocal infectious/inflammatory pneumonitis. Clinical correlation will be essential. D-dimer elevated 1000 VQ scan: indeterminate Doppler of the lower extremities: no DVT evaluated by Pulmonary given Zosyn and Doxy initially PNA felt to be aspiration related changed ABx to Clindamycin only given nebs, mucomyst respiratory status stable now CT chest also showing right chest wall cellulitis improving clinically with antibiotics will need total of 7 days Clindamycin, continue clindamycin (6) Hypertension: Patient with hypertension controlled on metoprolol and lisinopril. Lisinopril held due to acute kidney injury, continue to hold lisinopril blood pressure controlled on 10 mg daily amlodipine (7) Seizure disorder: Last seizures more than a month ago -on oral Keppra (8) Diabetic peripheral neuropathy: Has severe peripheral neuropathy which is chronic Diabetes Mellitus on continuous churn buttermaker use of insulin -have discontinued prednisone on 05/14/18 which was started on this admission previously for respiratory symptoms -believe that when off prednisone, the glucose control will be better while on Lantus 15 units qhs and sliding scale insulin (9) Chest pain: Complained of exertional chest pain EKG and cardiac enzymes Echo; EF was 55-60%, moderate concentric LVH with sigmoid septum no LV or motion abnormality and grade 1 diastolic dysfunction Angle Dozer Operator had been consulted and the chest pain has been deemed to be non cardiac in nature (10) DVT prophylaxis: SCDs, ambulation heparin subcutaneous every 8 hours (11) Discharge planning issues: will need outpatient followups with clinic doctors including the specialists who manages the gastric stimulator keep in hospital to monitor renal function while on diuretics and for glucose control Subjective Patient seen and examined earlier. at that time no nausea but report pain of abdomen and chest wall. reported that recently the lower extremity has worsened denies shortness of breath at rest Physical Exam 2 Vital Signs (Past 24 Hours): Last Vital Signs Temp 37.0 C 05/14/18 19:46 Pulse 74 05/14/18 20:47 Resp 16 05/14/18 20:47 BP 142/81 H 05/14/18 19:46 Pulse Ox 97 05/14/18 20:47 Constitutional: WD/WN, vitals as above Eyes: PERRL, conjunctivae normal, anicteric sclerae EOM intact bilaterally ENMT: external ear and nose normal, oropharynx normal Neck: trachea midline, no thyromegaly Respiratory: normal respiratory effort, lungs clear to auscultation Cardiovascular: Rate/Rhythm: regular rate and regular rhythm Extremities: + edema (bilateral lower extremity edema) Gastrointestinal (Abdomen): Inspection/Auscultation: abdomen normal to inspection Musculoskeletal: Head/Neck/Chest: normocephalic and head atraumatic Neurologic: PERRL, EOMI, accommodation nl, no face palsy, no dysarthria CN' s II-XI intact bilaterally Psychiatric: A+Ox3, euthymic affect _ (1) Chest pain Chest pain type: unspecified Ischemic chest pain type: Qualified Code(s): R07.9 - Chest pain, unspecified
[2018-05-15] MEDS: CHECK FENTANYL PATCH PLACEMENT SCH ×3 (00:14→17:54)
[2018-05-15] MEDS: HYDROmorphone INJ 0.5 MG/0.5 ML SYR IV PRN ×3 (00:37→11:38)
[2018-05-15] MEDS: LEVALBUTEROL HCL 0.63 MG/3 ML NEB NEB SCH ×4 (01:56→19:35)
[2018-05-15] MEDS: IPRATROPIUM BROMIDE NEB SOLN 0.02% 2.5 ML VIAL NEB SCH ×4 (01:56→19:35)
[2018-05-15] MEDS: CYCLOBENZAPRINE HCL 5 MG TAB PO PRN ×2 (06:25→19:18)
[2018-05-15] MEDS: HEPARIN SOD 5,000 UNIT/0.5 ML VIAL SQ SCH ×3 (06:25→21:33)
[2018-05-15] MEDS: POLYETHYLENE (MIRALAX) 17 GM PACK PO SCH (08:09)
[2018-05-15] MEDS: PANTOprazole 40 MG TAB PO SCH ×2 (08:10→21:32)
[2018-05-15] MEDS: FERROUS SULFATE 325 MG TAB PO SCH (08:10)
[2018-05-15] MEDS: levETIRAcetam 500 MG TAB PO SCH ×2 (08:10→21:31)
[2018-05-15] MEDS: FUROSEMIDE 20 MG TAB PO SCH (08:11)
[2018-05-15] MEDS: METOPROLOL TARTRATE 25 MG TAB PO SCH ×2 (08:11→21:32)
[2018-05-15] MEDS: MULTIVITAMIN TAB PO SCH (08:12)
[2018-05-15] MEDS: CLINDAMYCIN HCL 150 MG CAP PO SCH ×2 (08:13→12:46)
[2018-05-15] MEDS: GABAPENTIN 300 MG CAP PO SCH ×2 (08:14→21:32)
[2018-05-15] MEDS: ASPIRIN 81 MG ECTAB PO SCH (08:14)
[2018-05-15] MEDS: LIDOCAINE 5% 1 PATCH TD SCH (08:15)
[2018-05-15] MEDS: AMLODIPINE BESYLATE 5 MG TAB PO SCH (08:17)
[2018-05-15] MEDS: INSULIN ASPART 100 UNITS/ML 3 ML PEN SC SCH ×4 (08:21→21:32)
[2018-05-15 08:38] LABS: Basophils # (auto) 0.01 K/uL (0-0.2); Basophils % (auto) 0.1 %; Eosinophils # (auto) 0.08 K/uL (0-0.5); Eosinophils % (auto) 1.1 %; Hematocrit (blood only) 29.4 % (42-52); Hemoglobin 9.6 g/dL (14.0-18.0); Immature Granulocytes # (auto) 0.06 K/uL (0.00-0.02); Immature Granulocytes % (auto) 0.8 %; Lymphocytes # (auto) 1.54 K/uL (1.2-3.4); Lymphocytes % (auto) 21.6 %; Mean Platelet Volume 9.4 fL (7.4-10.4); Monocytes % (auto) 9.8 %; Neutrophils # (auto) 4.75 K/uL (1.4-6.5); Neutrophils % (auto) 66.6 %; Platelet Count 175 K/uL (130-400); RDW Coefficient of Variation 14.2 % (11.5-14.5); RDW Standard Deviation 45.3 fL (36.4-46.3); Red Blood Count 3.38 M/uL (4.7-6.1); White Blood Count 7.14 K/uL (4.8-10.8)
[2018-05-15 08:52] LABS: Mean Corpuscular Hgb Conc 32.7 g/dL (32-36)
[2018-05-15 09:01] LABS: Albumin Level 2.5 gm/dl (3.4-5.0); BUN Creatinine Ratio 19.3 (10-20); Calcium 8.1 mg/dl (8.5-10.1); Creatinine Clr Calc Pharmacy 60.7 ml/min; Est GFR (African American) 56.6; Est GFR (Non-African American) 48.8; Magnesium 1.7 mg/dl (1.8-2.4); Potassium 4.3 mmol/L (3.5-5.1)
[2018-05-15 09:04] LABS: Albumin Globulin Ratio 0.7 (0.9-2); Bilirubin,Total 0.1 mg/dl (0.2-1); Globulin 3.8 gm/dl (2.5-4.0); Total Protein 6.3 gm/dl (6.4-8.2)
[2018-05-15] MEDS: MAGNESIUM OXIDE 400 MG TAB PO SCH ×2 (10:47→21:32)
[2018-05-15] MEDS: MAGNESIUM SULFATE / D5W 1 GM/100 ML BAG IV SCH ×2 (11:36→12:40)
--- NOTE | 2018-05-15 13:19 | Pharmacy Report ---
Pharmacy Glycemic Short Note 2 - Date of Service May 15, 2018 - Glycemic Short BSG Results (Last 24 hours): 05/14/18 05/14/18 05/15/18 16:38 20:43 07:42 Glucose POC Glucose 196 H 211 H 224 H 05/15/18 05/15/18 08:19 11:33 Glucose 201 H POC Glucose 95 OUTPATIENT ANTIDIABETIC REGIMEN: * Basaglar 15 units SQ HS + Humalog SSI * A1c = 8.9 % 05/06/17 ASSESSMENT: 05/15 * Mr. Hamilton received 75 units of insulin yesterday * Steroids have been d/c'd, with the last dose of prednisone given yesterday AM * After his lower BSG at lunch, his BSGs increased, indicating that the CR was loosened a little too much * On prior admissions when NOT on steroids, his insulin requirements were: Lantus 15 units daily, CF 30, CR 12 * Fasting today = 224 mg/dL; I'm hesitant to change the basal unless we see a consistent trend with highs * Will loosen Novolog parameters with steroids no longer on board but not quite as conservative as in the past 05/14 * Mr. Hamilton has remained on the insulin drip but has had to start and stop the drip several times since yesterday. At this point, I feel it's appropriate to transition off the insulin drip and utilize the addition of NPH to cover the once daily prednisone. I spoke with the hospitalist to notify him of the same. * Looking at an average of insulin drip rates over the past 24 hours, he has received ~70 units of insulin just from the drip. This is in addition to the 15 of Lantus and 22 of Novolog. TDD estimated at ~100 units/day. * Will initiate once daily NPH to coincide with the once daily prednisone. This is used as it mimics the kinetics of the prednisone. 0.3 units/kg is recommended for prednisone 30 mg. This is in addition to his usual basal dose. Ideally, this would cover the prandial doses as well but his requirements have been so high that I will keep a CR for now. 05/13 * 52 yr old T2DM male admitted with chest pain, shortness of breath, IVAN and hyponatremia likely due to vomiting and diarrhea. * Started on steroid taper the evening of 05/11; prednisone decreased to 30 mg daily today (day 1/2) * Despite giving additional Lantus in the AM and tightening Novolog carb ratio to combat steroid induced hyperglycemia, Jeff experienced severe hyperglycemia last evening (BSG 327, 458 mg/dL). * Patient was started on IV insulin infusion last evening around midnight. BSG at goal since ~0700. Current infusion rate of 4 units/hr. * Discussed case with Hospitalist. I feel that we have two options; continue IV insulin infusion or initiate a once daily NPH dose qAM and allow the infusion to hopefully turn itself off in 4-6 hours. Decision was made to continue IV insulin infusion. * Will continue to overlap basal insulin with IV infusion to aid in easier titration off infusion at a later time. PLAN FOR INPATIENT GLYCEMIC CONTROL: * Basal insulin - no change * Lantus 15 units qHS * Bolus insulin - loosen CF/CR, tighten goal range for non-critically ill patient * NovoLog ACHS * Goal Range: Low 110 mg/dL - High 150 mg/dL * Correction factor: 25 mg/dL/unit * Carb ratio: 1 unit per 10 gm CHO consumed PLAN FOR DISCHARGE: * A1c of 8.9% is above goal based on patient age and co-morbidities * Recommend follow up with outpatient provider for dose titration
[2018-05-15] MEDS: fentaNYL 100 MCG/HR TDSY TD SCH (17:51)
--- NOTE | 2018-05-15 18:57 | Hospitalist Progress Note ---
Date of Service May 15, 2018 Assessment & Plan (1) IVAN (acute kidney injury): Patient with acute kidney injury on CKD likely due to pre-renal azotemia in setting of diarrhea and vomiting. Urinalysis showed concentrated urine and a urine sodium of 17. has acute kidney injury on this admission which improved after IV fluids however now has been having worsening leg edema -no history of systolic heart dysfunction based on recent echocardiogram -started on Lasix 20 mg daily on 05/14/18 to improve leg edema and ambulation, trend renal function while on diuretic, continue Lasix Hypomagnesemia -given IV and oral magnesium, trend magnesium levels (2) Acute hyponatremia: Patient admitted with the sodium of 128. Likely secondary to loss from GI tract The serum sodium has normalized early on this hospital admission and has resolved (3) Nausea and vomiting: KUB Xray: IMPRESSION: 1. No acute intra-abdominal pathology. 2. Gastric stimulator leads now project over the gastric antrum, which represents a change from prior exam. - evaluated by GI, had been given Emend, symptoms continue to improve (4) Gastroparesis: Has history ongoing gastroparesis secondary to diabetes Has a gastric stimulator abdominal discomfort from gastroparesis pantoprazole BID to reduce gastric reflux symptoms (5) Pneumonia: Reported increased productive cough, shortness of breath after exertion Repeat chest x-ray showing possible left middle to lower lobe pneumonia CT chest: There is patchy airspace consolidation throughout the left lung base with a small left pleural effusion. Additionally, there is minimal patchy consolidation at the right lung base. The appearance suggests a multifocal infectious/inflammatory pneumonitis. Clinical correlation will be essential. D-dimer elevated 1000 VQ scan: indeterminate Doppler of the lower extremities: no DVT evaluated by Pulmonary given Zosyn and Doxy initially PNA felt to be aspiration related changed ABx to Clindamycin only given nebs, mucomyst respiratory status stable now CT chest also showing right chest wall cellulitis improving clinically with antibiotics will need total of 7 days Clindamycin (started on 05/10/18), continue clindamycin (6) Hypertension: Patient with hypertension controlled on metoprolol and lisinopril. 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 -have discontinued prednisone on 05/14/18 which was started on this admission previously for respiratory symptoms and had caused increases in blood sugars -continue Lantus 15 units qhs and sliding scale insulin (9) Chest pain: Complained of exertional chest pain EKG and cardiac enzymes Echo; EF was 55-60%, moderate concentric LVH with sigmoid septum no LV or motion abnormality and grade 1 diastolic dysfunction [employer] Project Manager had been consulted and the chest pain has been deemed to be non cardiac in nature (10) DVT prophylaxis: SCDs, ambulation heparin subcutaneous every 8 hours (11) Discharge planning issues: will need outpatient followups with clinic doctors including the specialists who manages the gastric stimulator pain will likely be on going and chronic issue, continue Lasix inpatient and monitor renal function, try to correct hypomagnesemia as the diuretic use will exacerbate electrolyte depletion Subjective Patient seen and examined earlier. at that time no nausea but report pain of abdomen which has been tender on palpation denies shortness of breath at rest , reports breathing is better leg swelling remains relative unchanged magnesium noted to be low Physical Exam 2 Vital Signs (Past 24 Hours): Last Vital Signs Temp 36.9 C 05/15/18 14:45 Pulse 80 05/15/18 14:45 Resp 16 05/15/18 14:45 BP 104/57 L 05/15/18 14:45 Pulse Ox 98 05/15/18 14:45 Constitutional: WD/WN, vitals as above Eyes: PERRL, conjunctivae normal, anicteric sclerae EOM intact bilaterally ENMT: external ear and nose normal, oropharynx normal Neck: trachea midline, no thyromegaly Respiratory: normal respiratory effort, lungs clear to auscultation Cardiovascular: Rate/Rhythm: regular rate and regular rhythm Extremities: + edema (bilateral lower extremity edema) Gastrointestinal (Abdomen): Inspection/Auscultation: abdomen normal to inspection (tender to palpation) Musculoskeletal: Head/Neck/Chest: normocephalic and head atraumatic Neurologic: PERRL, EOMI, accommodation nl, no face palsy, no dysarthria CN' s II-XI intact bilaterally Psychiatric: A+Ox3, euthymic affect _ (1) Chest pain Chest pain type: unspecified Ischemic chest pain type: Qualified Code(s): R07.9 - Chest pain, unspecified
[2018-05-15] MEDS: INSULIN GLARGINE SOLOSTAR 100 UNITS/ML 3 ML PEN SC SCH (21:31)
[2018-05-16] MEDS: IPRATROPIUM BROMIDE NEB SOLN 0.02% 2.5 ML VIAL NEB SCH ×2 (01:31→08:07)
[2018-05-16] MEDS: LEVALBUTEROL HCL 0.63 MG/3 ML NEB NEB SCH ×3 (01:31→08:07)
[2018-05-16] MEDS: OXYCODONE HCL IR 5 MG TAB (IMMEDIATE RELEASE) PO PRN ×2 (01:53→07:50)
[2018-05-16] MEDS: CHECK FENTANYL PATCH PLACEMENT SCH ×2 (01:54→07:53)
[2018-05-16] MEDS: HEPARIN SOD 5,000 UNIT/0.5 ML VIAL SQ SCH ×2 (06:01→13:02)
[2018-05-16] MEDS: CYCLOBENZAPRINE HCL 5 MG TAB PO PRN ×2 (06:01→13:02)
[2018-05-16 07:44] LABS: BUN Creatinine Ratio 17.7 (10-20); Calcium 7.8 mg/dl (8.5-10.1); Creatinine Clr Calc Pharmacy 56.3 ml/min; Est GFR (African American) 51.5; Est GFR (Non-African American) 44.4; Magnesium 1.9 mg/dl (1.8-2.4); Potassium 4.3 mmol/L (3.5-5.1)
[2018-05-16] MEDS: PANTOprazole 40 MG TAB PO SCH (07:51)
[2018-05-16] MEDS: levETIRAcetam 500 MG TAB PO SCH (07:51)
[2018-05-16] MEDS: MULTIVITAMIN TAB PO SCH (07:51)
[2018-05-16] MEDS: FERROUS SULFATE 325 MG TAB PO SCH (07:51)
[2018-05-16] MEDS: FUROSEMIDE 20 MG TAB PO SCH (07:51)
[2018-05-16] MEDS: METOPROLOL TARTRATE 25 MG TAB PO SCH (07:51)
[2018-05-16] MEDS: GABAPENTIN 300 MG CAP PO SCH (07:52)
[2018-05-16] MEDS: MAGNESIUM OXIDE 400 MG TAB PO SCH (07:52)
[2018-05-16] MEDS: ASPIRIN 81 MG ECTAB PO SCH (07:52)
[2018-05-16] MEDS: LIDOCAINE 5% 1 PATCH TD SCH (07:52)
[2018-05-16] MEDS: AMLODIPINE BESYLATE 5 MG TAB PO SCH (07:52)
[2018-05-16] MEDS: POLYETHYLENE (MIRALAX) 17 GM PACK PO SCH (07:53)
[2018-05-16] MEDS: INSULIN ASPART 100 UNITS/ML 3 ML PEN SC SCH ×2 (09:02→12:58)
[2018-05-16] MEDS: CLINDAMYCIN HCL 150 MG CAP PO SCH ×2 (09:04→13:01)
--- NOTE | 2018-05-16 11:58 | Hospitalist Progress Note ---
Date of Service May 16, 2018 Assessment & Plan (1) IVAN (acute kidney injury): Patient with acute kidney injury on CKD likely due to pre-renal azotemia in setting of diarrhea and vomiting. Urinalysis showed concentrated urine and a urine sodium of 17. has acute kidney injury on this admission which improved after IV fluids however now has been having worsening leg edema -no history of systolic heart dysfunction based on recent echocardiogram -started on Lasix 20 mg daily on 05/14/18 to improve leg edema and ambulation -continue Lasix as 10 mg daily as outpatient Hypomagnesemia -after given IV and oral magnesium, serum magnesium is better at 1.9 -continue BID magnesium supplements as outpatient Patient should follow up with primary care doctor and get labs rechecked for kidney function and magnesium levels and may need increased furosemide adjustments based on labs and leg swelling 05/21/2018 2:00 PM Lionel Hernandez DO [facility] (2) Acute hyponatremia: Patient admitted with the sodium of 128. Likely secondary to loss from GI tract The serum sodium has normalized early on this hospital admission and has resolved (3) Nausea and vomiting: KUB Xray: IMPRESSION: 1. No acute intra-abdominal pathology. 2. Gastric stimulator leads now project over the gastric antrum, which represents a change from prior exam. - evaluated by GI, had been given Emend, symptoms continue to improve (4) Gastroparesis: Has history ongoing gastroparesis secondary to diabetes Has a gastric stimulator abdominal discomfort from gastroparesis pantoprazole BID to reduce gastric reflux symptoms Patient should follow with specialist who specializes with the gastric stimulator to adjust settings as needed to minimize abdominal pain and gastric reflux (5) Pneumonia: Reported increased productive cough, shortness of breath after exertion Repeat chest x-ray showing possible left middle to lower lobe pneumonia CT chest: There is patchy airspace consolidation throughout the left lung base with a small left pleural effusion. Additionally, there is minimal patchy consolidation at the right lung base. The appearance suggests a multifocal infectious/inflammatory pneumonitis. Clinical correlation will be essential. D-dimer elevated 1000 VQ scan: indeterminate Doppler of the lower extremities: no DVT evaluated by Pulmonary given Zosyn and Doxy initially PNA felt to be aspiration related changed ABx to Clindamycin only given nebs, mucomyst respiratory status stable now CT chest also showing right chest wall cellulitis improving clinically with antibiotics will need total of 7 days Clindamycin (started on 05/10/18), continue clindamycin with last day as 05/17/18 (patient given presrciption) (6) Hypertension: Patient with hypertension controlled on metoprolol and lisinopril. 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 -have discontinued prednisone on 05/14/18 which was started on this admission previously for respiratory symptoms and had caused increases in blood sugars -continue Lantus 15 units qhs and sliding scale insulin (9) Chest pain: Complained of exertional chest pain EKG and cardiac enzymes Echo; EF was 55-60%, moderate concentric LVH with sigmoid septum no LV or motion abnormality and grade 1 diastolic dysfunction Healthcare Facility Administrator had been consulted and the chest pain has been deemed to be non cardiac in nature chest pain from pneumonia versus chest wall cellulitis versus gastric reflux continue antibiotic and PPI (10) DVT prophylaxis: SCDs, ambulation heparin subcutaneous every 8 hours (11) Discharge planning issues: Discharge Instructions Take Furosemide 10 mg daily for 14 days for leg swelling Continue Lisinopril 40 mg daily for blood pressure control Stop amlodipine for blood pressure control because this medication can worsen leg swelling Take magnesium 400 mg twice a day Patient should follow up with primary care doctor and get labs rechecked for kidney function and magnesium levels and may need increased furosemide adjustments based on labs and leg swelling 05/21/2018 2:00 PM Lionel Hernandez DO [facility] Patient should also discuss with primary care doctor the current role of the metoprolol 75 mg BID Patient should take clindamycin antibiotic 450 mg as 4 times a day with last day of the antibiotic as 05/17/18 Patient should follow with specialist who specializes with the gastric stimulator to adjust settings as needed to minimize abdominal pain and gastric reflux Discharge Diagnosis non intractable vomiting with nausea, acute kidney injury on chronic kidney disease, chest pain from pneumonia versus chest wall cellulitis versus gastric reflux, abdominal pain, has gastric stimulator, Type 2 diabetes mellitus on termite treater current use of insulin, lower extremity edema, Hypomagnesemia, Hypertension Subjective Patient seen and examined. still tenderness on palpation of abdomen but patient tolerating discomfort denies shortness of breath at rest , reports breathing is better and less coughing. continues to breath on room air leg swelling still present Physical Exam 2 Vital Signs (Past 24 Hours): Last Vital Signs Temp 37 C 05/16/18 08:11 Pulse 75 05/16/18 08:11 Resp 18 05/16/18 08:11 BP 91/56 L 05/16/18 08:11 Pulse Ox 98 05/16/18 08:11 Constitutional: WD/WN, vitals as above Eyes: PERRL, conjunctivae normal, anicteric sclerae EOM intact bilaterally ENMT: external ear and nose normal, oropharynx normal Neck: trachea midline, no thyromegaly Respiratory: normal respiratory effort, lungs clear to auscultation Cardiovascular: Rate/Rhythm: regular rate and regular rhythm Extremities: + edema (bilateral lower extremity edema) Gastrointestinal (Abdomen): Inspection/Auscultation: abdomen normal to inspection (tender to palpation) Musculoskeletal: Head/Neck/Chest: normocephalic and head atraumatic Neurologic: PERRL, EOMI, accommodation nl, no face palsy, no dysarthria CN' s II-XI intact bilaterally Psychiatric: A+Ox3, euthymic affect _ (1) Chest pain Chest pain type: unspecified Ischemic chest pain type: Qualified Code(s): R07.9 - Chest pain, unspecified
[2018-05-16] MEDS: CARBOHYDRATES FOR HYPOGLYCEMIA PO PRN ×2 (12:04→12:25)
--- NOTE | 2018-05-16 12:09 | Discharge Summary ---
Date of Service May 16, 2018 Admission HPI Per Admitting Provider CHIEF COMPLAINT: Chest pain, shortness of breath. HISTORY OF PRESENT ILLNESS: This is a 52-year-old male with past medical history significant for diabetes, autoimmune dysfunction,, diabetic gastroparesis, status post gastric pacemaker, history of intrathecal pump for neuropathy, but it is taken out secondary to infection, on chronic pain medications, history of pancreatitis, gastritis, hypertension, history of malignant neoplasm of upper lobe of the left lung, adenocarcinoma, status post resection, status post chemo and supposed to get a follow up CAT scan in June of this year, no longer on any chemo, neurogenic bladder, neuropathy, history of seizure disorder. The patient chronically has nausea, vomiting from his gastroparesis. Most of times, patient says he brings the pills out. He was in [place] today, he had his dinner and was walking on the road, 13 minutes into walk they went into mandaeism then suddenly he had chest pain, severe in nature with radiation to back,and he had to double down and was feeling short of breath and had nausea, and 1 episode of vomiting. When the EMS came, he was saturating at 70%. They placed him on oxygen and brought him here. Currently, the patient's initial workup is negative and currently patient is hemodynamically stable,and he is talking fine without oxygen on. He says he still has some mild chest discomfort and getting short of breath on and off. Denies any cough, denies any fever, no chills, no headaches. He has some dizziness. No blurred vision. He has some runny nose and some sore throat, no difficulty swallowing. Appetite is okay except that he has chronic nausea from his gastroparesis. Denies any abdominal pain at this time. Normal bowel and bladder movements. No blood in the stools, no hematuria, no burning micturition. Ambulating in the ER room okay. The patient has a seizure disorder and he follows with a specialist at [place]. He has some shakiness in his right hand on and off, and he requests to establish with neurology in the [place] to save him the drive and he has also plans to follow with nephrology for his chronic kidney disease. ALLERGIES: BEE VENOM, PENICILLIN, REGLAN. PAST MEDICAL HISTORY: As mentioned above. PAST SURGICAL HISTORY: Colonoscopy, EGDs endoscopic ultrasound, pain pump placement, and removal of the infected pain pump, robotic thoracoscopy with lymphadenectomy, robotic thoracoscopy with lobectomy in 2017, upper endoscopy. MEDICATIONS: The patient currently on Keppra 500 mg p.o. b.i.d., MiraLax 17 g daily p.r.n., fentanyl patch 100 mcg q. 72 hours, oxycodone 10 mg p.o. q. 4 hours p.r.n. trimethobenzamide 300 mg 1 capsule t.i.d. p.r.n. for nausea, Insulin Glargine 15 units to the skin at bedtime, aspirin 81 mg p.o. daily, Zofran 8 mg p.o. t.i.d. p.r.n., lisinopril 40 mg p.o. daily, albuterol 2 puffs every 4 hours p.r.n., amlodipine 5 mg p.o. daily, ferrous sulfate 325 mg p.o. b.i.d., gabapentin 300 mg p.o. t.i.d., Humalog sliding scale, metoprolol 25 mg p.o. b.i.d., Compazine 10 mg p.o. q. 6 hours p.r.n., Tylenol 1000 mg p.o. q. 6 hours p.r.n., multivitamins 1 pill daily. FAMILY HISTORY: Significant for father has diabetes. Mother has diabetes. Sister has renal cell carcinoma, aunt has cancer. SOCIAL HISTORY: . Former smoker, quit in 2000, smoked half pack a day for 2 years. No alcohol use. No drug use. REVIEW OF SYMPTOMS: As per HPI. Rest of review of systems negative. Admission Exam Per Admitting Provider PHYSICAL EXAMINATION: GENERAL: The patient is of moderate built, not in acute distress. VITAL SIGNS: Temperature 36.7, pulse 79, respiratory rate 21, blood pressure 91/69, oxygen 99% room air. HEENT: No pallor, no icterus. Pupils equal, round, and react to light. NECK: No JVD, no neck masses, no carotid bruit. CARDIOVASCULAR: S1, S2 heard, regular rate and rhythm, no murmur, no gallop. RESPIRATORY SYSTEM: Clear to auscultation bilaterally. No wheezing, no crackles. ABDOMEN: Soft, bowel sounds present. Nontender. No distention. CENTRAL NERVOUS SYSTEM: Cranial nerves II-XII grossly intact. Nonfocal. EXTREMITIES: No edema, no erythema seen. 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, lower extremity edema, Hypomagnesemia, Hypertension Discharge Exam Constitutional WD/WN, vitals as above Eyes PERRL, conjunctivae normal, anicteric sclerae EOM intact bilaterally ENMT external ear and nose normal, oropharynx normal Neck trachea midline, no thyromegaly Respiratory normal respiratory effort, lungs clear to auscultation Cardiovascular Rate/Rhythm: regular rate and regular rhythm Extremities: + edema (bilateral lower extremity edema) Gastrointestinal (Abdomen) Inspection/Auscultation: abdomen normal to inspection (tender to palpation) Musculoskeletal Head/Neck/Chest: normocephalic and head atraumatic Neurologic PERRL, EOMI, accommodation nl, no face palsy, no dysarthria CN's II-XI intact bilaterally Psychiatric A+Ox3, euthymic affect Discharge Data Allergies Allergy/AdvReac Type Severity Reaction Status Date / Time bee venom protein (honey bee) Allergy Mild SWELLING Verified 05/05/18 21:24 AT SITE, SOB Penicillins Allergy Unknown "SINCE Unverified 05/05/18 21:24 "-Amoxicillin metoclopramide AdvReac Unknown hallucinati Verified 05/05/18 21:24 ons Consultations 05/06/18 08:00 Consult Cardiology Routine Consult Gastroenterology Routine Consult Nephrology Routine Consult Neurology Routine 05/09/18 15:26 Consult Pulmonology Routine 05/11/18 15:30 Consult Pain Management Routine 05/05/18 22:19 ED Decision to Admit Stat Ordered Studies 05/06/18 00:38 US venous doppler LE BI Urgent 05/06/18 09:55 US renal/blad retro comp Routine 05/08/18 17:45 US venous doppler LE BI Stat 05/09/18 15:26 CT chest wo con Urgent Hospital Course (1) IVAN (acute kidney injury): Patient with acute kidney injury on CKD likely due to pre-renal azotemia in setting of diarrhea and vomiting. Urinalysis showed concentrated urine and a urine sodium of 17. has acute kidney injury on this admission which improved after IV fluids however now has been having worsening leg edema -no history of systolic heart dysfunction based on recent echocardiogram -started on Lasix 20 mg daily on 05/14/18 to improve leg edema and ambulation -continue Lasix as 10 mg daily as outpatient Hypomagnesemia -after given IV and oral magnesium, serum magnesium is better at 1.9 -continue BID magnesium supplements as outpatient Patient should follow up with primary care doctor and get labs rechecked for kidney function and magnesium levels and may need increased furosemide adjustments based on labs and leg swelling 05/21/2018 2:00 PM Lionel Lutz V, [facility] (2) Acute hyponatremia: Patient admitted with the sodium of 128. Likely secondary to loss from GI tract The serum sodium has normalized early on this hospital admission and has resolved (3) Nausea and vomiting: KUB Xray: IMPRESSION: 1. No acute intra-abdominal pathology. 2. Gastric stimulator leads now project over the gastric antrum, which represents a change from prior exam. - evaluated by GI, had been given Emend, symptoms continue to improve (4) Gastroparesis: Has history ongoing gastroparesis secondary to diabetes Has a gastric stimulator abdominal discomfort from gastroparesis pantoprazole BID to reduce gastric reflux symptoms Patient should follow with specialist who specializes with the gastric stimulator to adjust settings as needed to minimize abdominal pain and gastric reflux (5) Pneumonia: Reported increased productive cough, shortness of breath after exertion Repeat chest x-ray showing possible left middle to lower lobe pneumonia CT chest: There is patchy airspace consolidation throughout the left lung base with a small left pleural effusion. Additionally, there is minimal patchy consolidation at the right lung base. The appearance suggests a multifocal infectious/inflammatory pneumonitis. Clinical correlation will be essential. D-dimer elevated 1000 VQ scan: indeterminate Doppler of the lower extremities: no DVT evaluated by Pulmonary given Zosyn and Doxy initially PNA felt to be aspiration related changed ABx to Clindamycin only given nebs, mucomyst respiratory status stable now CT chest also showing right chest wall cellulitis improving clinically with antibiotics will need total of 7 days Clindamycin (started on 05/10/18), continue clindamycin with last day as 05/17/18 (patient given presrciption) (6) Hypertension: Patient with hypertension controlled on metoprolol and lisinopril. 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 -have discontinued prednisone on 05/14/18 which was started on this admission previously for respiratory symptoms and had caused increases in blood sugars -continue Lantus 15 units qhs and sliding scale insulin (9) Chest pain: Complained of exertional chest pain EKG and cardiac enzymes Echo; EF was 55-60%, moderate concentric LVH with sigmoid septum no LV or motion abnormality and grade 1 diastolic dysfunction [employer] had been consulted and the chest pain has been deemed to be non cardiac in nature chest pain from pneumonia versus chest wall cellulitis versus gastric reflux continue antibiotic and PPI (10) DVT prophylaxis: SCDs, ambulation heparin subcutaneous every 8 hours (11) Discharge planning issues: Discharge Instructions Take Furosemide 10 mg daily for 14 days for leg swelling Continue Lisinopril 40 mg daily for blood pressure control Stop amlodipine for blood pressure control because this medication can worsen leg swelling Take magnesium 400 mg twice a day Patient should follow up with primary care doctor and get labs rechecked for kidney function and magnesium levels and may need increased furosemide adjustments based on labs and leg swelling 05/21/2018 2:00 PM Lionel Hernandez DO [facility] Patient should also discuss with primary care doctor the current role of the metoprolol 75 mg BID Patient should take clindamycin antibiotic 450 mg as 4 times a day with last day of the antibiotic as 05/17/18 Patient should follow with specialist who specializes with the gastric stimulator to adjust settings as needed to minimize abdominal pain and gastric reflux Discharge Diagnosis non intractable vomiting with nausea, acute kidney injury on chronic kidney disease, chest pain from pneumonia versus chest wall cellulitis versus gastric reflux, abdominal pain, has gastric stimulator, Type 2 diabetes mellitus on half-way current use of insulin, lower extremity edema, Hypomagnesemia, Hypertension Total Time Total Time Spent Total Time Spent (In Minutes): 40 minutes Total Time Includes: Examination of the Patient, Discharge Planning and Medication Reconciliation Discharge Plan Discharge Items Patient Disposition: Home - Self-Care Reason For Visit: CHEST PAIN, SOB Discharge Diagnosis: non intractable vomiting with nausea, acute kidney injury on chronic kidney disease, chest pain from pneumonia versus chest wall cellulitis versus gastric reflux, abdominal pain, has gastric stimulator, 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, lower extremity edema, Hypomagnesemia, Hypertension Condition: Good Discharge Goals: Improve disease control Activity: Resume your previous activity Non-emergency contact: Primary Care Provider Call non-emergency contact if: you have any medication questions Diet: Carb Consistent or DM2 Addtl Provider Instructions: Take Furosemide 10 mg daily for 14 days for leg swelling Continue Lisinopril 40 mg daily for blood pressure control Stop amlodipine for blood pressure control because this medication can worsen leg swelling Take magnesium 400 mg twice a day Patient should follow up with primary care doctor and get labs rechecked for kidney function and magnesium levels and may need increased furosemide adjustments based on labs and leg swelling 05/21/2018 2:00 PM Lionel Hernandez DO [facility] Patient should also discuss with primary care doctor the current role of the metoprolol 75 mg BID Patient should take clindamycin antibiotic 450 mg as 4 times a day with last day of the antibiotic as 05/17/18 Patient should follow with specialist who specializes with the gastric stimulator to adjust settings as needed to minimize abdominal pain and gastric reflux Prescriptions: New clindamycin HCl 150 mg Capsule 450 mg PO QID 2 Days Qty: 24 RF: 0 magnesium oxide 400 mg (241.3 mg magnesium) Tablet 400 mg PO BID 15 Days Qty: 30 RF: 0 furosemide 20 mg Tablet 10 mg PO QAM 14 Days Qty: 7 RF: 0 Continue multivitamin Tablet 1 tab PO DAILY RF: 0 levetiracetam [Keppra] 500 mg Tablet 500 mg PO BID RF: 0 ondansetron HCl 8 mg Tablet 8 mg PO Q8H PRN (Reason: Nausea) RF: 0 prochlorperazine maleate 10 mg Tablet 10 mg PO Q6H PRN (Reason: Acid Reflux) RF: 0 aspirin [Aspirin Low Dose] 81 mg Tablet,Delayed Release (Dr/Ec) 81 mg PO DAILY RF: 0 acetaminophen [Acetaminophen Extra Strength] 500 mg Tablet 1,000 mg PO Q6H PRN (Reason: Pain) RF: 0 fentanyl 100 mcg/hr patch 72 hour 1 patch topical Q2D RF: 0 pantoprazole 40 mg tablet,delayed release (DR/EC) 40 mg PO DAILY RF: 0 ferrous sulfate 325 mg (65 mg iron) Tablet 325 mg PO DAILY RF: 0 gabapentin 300 mg Capsule 300 mg PO TID RF: 0 epinephrine [EpiPen] 0.3 mg/0.3 mL Auto-Injector 0.3 mg IM Q3H PRN (Reason: Allergic Reaction) RF: 0 polyethylene glycol 3350 [Miralax] 17 gram/dose Powder 17 g PO DAILY RF: 0 albuterol sulfate 90 mcg/actuation Hfa Aerosol Inhaler 2 puff INHALATION Q4H PRN (Reason: Shortness Of Breath) RF: 0 lisinopril 40 mg Tablet 40 mg PO DAILY RF: 0 trimethobenzamide 300 mg Capsule 300 mg PO TID PRN (Reason: Nausea And Vomiting) RF: 0 insulin lispro [Humalog U-100 Insulin] 100 unit/mL Cartridge 1 sliding scale dose SUBCUT UD RF: 0 metoprolol tartrate 25 mg Tablet 75 mg PO BID RF: 0 insulin glargine [Basaglar KwikPen U-100 Insulin] 100 unit/mL (3 mL) Insulin Pen 15 unit SUBCUT HS RF: 0 oxycodone 10 mg Tablet 10 mg PO Q4H RF: 0 Discontinued amlodipine 5 mg Tablet 5 mg PO DAILY RF: 0 magnesium oxide 400 mg magnesium Tablet 400 mg PO BID RF: 0 Visit Report Forms: [facility] Stand-Alone Forms: [facility] Discharge Orders: Discharge Order (Routine); Ordered 05/16/18 Ordered By: Edgar Bagley Admission Data Admit Date/Time: 05/05/18 23:32 Attending Provider: Edgar Bagley Admit Provider: Aguila Saenz Primary Care Provider: PCP,NO Other Providers: Leeanne Harp ; Stephon Vernon ; Aguila Saenz ; Claude Ventura ; Jose Vallejo ; Binh Pickering ; Fredy Borjas ; Bunny Rhodes ; Fuad Mixon ; Silvia Johnson ; Nidia Yoder ; Jani Daniel ; Saleem Mendez ; Nicolle Mccormack ; Alfredito Major ; Marli Chaves ; Mahesh Avila ; Dawna Naik ; Surya Valentin ; Ilir Ballard ; Tiffanie Garcia ; Catalina Demarco ; Peggy Mathews ; Malia James ; Adalberto Varma ; Norma Lord ; Ej Barajas ; Herb Chavez I ; Ynes Loco ; Dylan Jo ; Nidia Mcfarlane ; Rodo Wright ; Nidia Yeboah ; Fe Arredondo ; Rene Carter ; Alexa Alexander ; Ty Granados ; Dave Ch ; Idalia Hernandez ; Henry Hope ; Brenna Mancilla ; Kiara Levy Service: Telemetry
--- NOTE | 2018-05-16 13:53 | Pharmacy Report ---
Pharmacy Glycemic Short Note 2 - Date of Service May 16, 2018 - Glycemic Short BSG Results (Last 24 hours): 05/15/18 05/15/18 05/16/18 16:21 20:10 06:49 Glucose 144 H POC Glucose 140 H 139 H 05/16/18 05/16/18 05/16/18 07:46 11:36 12:00 Glucose POC Glucose 133 H 61 L* 54 L* 05/16/18 05/16/18 12:23 12:56 Glucose POC Glucose 65 L* 97 OUTPATIENT ANTIDIABETIC REGIMEN: * Basaglar 15 units SQ HS + Humalog SSI * A1c = 8.9 % 05/06/17 ASSESSMENT: 05/16: * Patient received total of 38 units of insulin yesterday, 15 units of which were basal insulin ; this is a significant decrease from 75 units of insulin he required on 05/14. However at that time he was receiving once daily prednisone * Fasting BSG this am much improved from yesterday from 224 to 144 mg/dL * Lunchtime BSG trended down to 61 mg/dL - previous data shows patient's BSGs tend to fluctuate up/down with lunchtime typically the lowest BSG of the day. Feel that BSG related to stacking of insulin days prior. * Recheck BSG now at 97 mg/dL - no coverage given as patient refused; anticipate BSGs to trend back * Adjusted CF/CR due to lower lunchtime BSG and since patient remains off steroids - will continue to trend 05/15 * Mr. Hamilton received 75 units of insulin yesterday * Steroids have been d/c'd, with the last dose of prednisone given yesterday AM * After his lower BSG at lunch, his BSGs increased, indicating that the CR was loosened a little too much * On prior admissions when NOT on steroids, his insulin requirements were: Lantus 15 units daily, CF 30, CR 12 * Fasting today = 224 mg/dL; I'm hesitant to change the basal unless we see a consistent trend with highs * Will loosen Novolog parameters with steroids no longer on board but not quite as conservative as in the past 05/14 * Mr. Hamilton has remained on the insulin drip but has had to start and stop the drip several times since yesterday. At this point, I feel it's appropriate to transition off the insulin drip and utilize the addition of NPH to cover the once daily prednisone. I spoke with the hospitalist to notify him of the same. * Looking at an average of insulin drip rates over the past 24 hours, he has received ~70 units of insulin just from the drip. This is in addition to the 15 of Lantus and 22 of Novolog. TDD estimated at ~100 units/day. * Will initiate once daily NPH to coincide with the once daily prednisone. This is used as it mimics the kinetics of the prednisone. 0.3 units/kg is recommended for prednisone 30 mg. This is in addition to his usual basal dose. Ideally, this would cover the prandial doses as well but his requirements have been so high that I will keep a CR for now. PLAN FOR INPATIENT GLYCEMIC CONTROL: * Basal insulin - no change * Lantus 15 units qHS * Bolus insulin - loosen CF/CR; added overnight check * NovoLog ACHS * Goal Range: Low 110 mg/dL - High 150 mg/dL * Correction factor: 30 mg/dL/unit * Carb ratio: 1 unit per 12 gm CHO consumed PLAN FOR DISCHARGE: * A1c of 8.9% is above goal based on patient age and co-morbidities * Recommend follow up with outpatient provider for dose titration
[2018-05-17] MEDS ORDERED: INSULIN ASPART 100 UNITS/ML 3 ML PEN SC SCH
== END 2018-05-16 14:33 | disposition home or self-care (01) ==
LOC: ED 19:59 → 2S 23:32 → SUATTDRO 23:32 → 2S 23:52 → 4E 05-11 18:25

== ENCOUNTER 2018-11-17 20:49 | Inpatient (IN) ==
[2018-11-17] MEDS ORDERED: ONDANSETRON INJ 2 MG/ML 2 ML VIAL IV STA (22:02)
[2018-11-17] MEDS ORDERED: HYDROmorphone INJ 1 MG/ML SYRINGE IV STA ×2 (22:02→23:29)
[2018-11-17 22:13] LABS: Basophils # (auto) 0.01 K/uL (0-0.2); Basophils % (auto) 0.1 %; Eosinophils # (auto) 0.16 K/uL (0-0.5); Eosinophils % (auto) 2.4 %; Hematocrit (blood only) 34.5 % (42-52); Hemoglobin 12.2 g/dL (14.0-18.0); Immature Granulocytes # (auto) 0.02 K/uL (0.00-0.02); Immature Granulocytes % (auto) 0.3 %; Lymphocytes # (auto) 1.41 K/uL (1.2-3.4); Lymphocytes % (auto) 21.1 %; Mean Corpuscular Hgb Conc 35.4 g/dL (32-36); Mean Corpuscular Volume 82.1 fL (80-100); Mean Platelet Volume 10.3 fL (7.4-10.4); Monocytes # (auto) 0.49 K/uL (0.11-0.59); Monocytes % (auto) 7.3 %; Neutrophils # (auto) 4.59 K/uL (1.4-6.5); Neutrophils % (auto) 68.8 %; Platelet Count 203 K/uL (130-400); RDW Coefficient of Variation 12.8 % (11.5-14.5); RDW Standard Deviation 38.5 fL (36.4-46.3); White Blood Count 6.68 K/uL (4.8-10.8)
[2018-11-17] MEDS ORDERED: SODIUM CHLORIDE 0.9% 1000ML 1,000 ML IV SCH (22:15)
[2018-11-17 22:28] LABS: Alanine Aminotransferase 33 U/L (12-78); Albumin Globulin Ratio 0.9 (0.9-2); Alkaline Phosphatase 119 U/L (45-117); BUN Creatinine Ratio 8.5 (10-20); Bilirubin,Total 0.5 mg/dl (0.2-1); Blood Urea Nitrogen 20 mg/dl (7-18); Calcium 9.7 mg/dl (8.5-10.1); Carbon Dioxide 23 mmol/L (21-32); Chloride 97 mmol/L (98-107); Creatinine Clr Calc Pharmacy 35.9 ml/min; Est GFR (African American) 36.2; Est GFR (Non-African American) 31.3; Globulin 4.7 gm/dl (2.5-4.0); Glucose 445 mg/dl (70-99); Sodium 130 mmol/L (136-145); Total Protein 8.7 gm/dl (6.4-8.2); Troponin I < 0.015 ng/ml (0-0.045)
[2018-11-17] MEDS ORDERED: INSULIN HUMAN REGULAR PER UNIT 5 UNITS in SYRINGE 0 ML IV STA (22:31)
[2018-11-17] MEDS ORDERED: INSULIN HUMAN REGULAR PER UNIT 5 UNITS in SYRINGE 0 ML IV ONE (23:00)
[2018-11-17 23:17] LABS: Partial Thromboplastin Ratio 0.9; Partial Thromboplastin Time 23.6 Seconds (21.0-31.0); Prothrombin Time 10.4 Seconds (9.0-12.0)
[2018-11-17] MEDS ORDERED: PROCHLORPERAZINE 10 MG in SYRINGE 8 ML IV ONE (23:29)
[2018-11-17] MEDS ORDERED: SODIUM CHLORIDE 0.9% 1000ML 1,000 ML IV ONE (23:29)
[2018-11-17] MEDS ORDERED: PROCHLORPERAZINE 5 MG/ML 2 ML VIAL ONE (23:34)
[2018-11-18] MEDS ORDERED: INSULIN HUMAN REGULAR PER UNIT 5 UNITS in SYRINGE 4.95 ML IV STA (00:58)
--- NOTE | 2018-11-18 01:16 | History & Physical Report ---
Date of Service November 18, 2018 Assessment & Plan (1) Renal failure (ARF), acute on chronic: Clinical dehydration secondary to intractable nausea, emesis secondary to gastroparesis flareup hx gastric pacemaker Gastroparesis problem compounded by chronic pain on narcotic regimen. Hypertension, elevated secondary discomfort DM 2, insulin requiring suboptimal control as of recent outpatient hemoglobin A1c of 8.9 last May 2018 NSCLC stage III, status post surgery, incomplete chemotherapy secondary to intolerance, chronic anemia, hemoglobin better than baseline likely secondary to hemoconcentration Past tobacco abuse F Emend trial GI consult if without response to emend RE gastroparesis flareup Judicious narcotic use Baseline UA, monitor creatinine response to IV fluids Basal insulin adjusted for clear liquid diet for now, ISS BG goal 1 40-1 80, update hemoglobin A1c DVT prophylaxis. Heparin subcu Full code History of Present Illness Chief Complaint: Nausea, vomiting Primary Care Provider: Lionel uLtz, History obtained from patient and records. Medical history significant for NSCLC stage III, status post surgery, incomplete chemotherapy secondary to intolerance, gastroparesis status post gastric pacemaker, chronic pain on narcotics, hypertension, DM2 insulin requiring, past tobacco abuse, CRI baseline creatinine 1.5, chronic anemia (baseline hemoglobin 9-10), seizure disorder as per records, hx neurogenic bladder as per records. Recent confinement April 2018 for ARF, nausea vomiting. 1 day history of nausea vomiting symptoms similar to gastroparesis attack in the past as per patient. Patient later noted achy epigastric with no shortness of breath. No cough symptoms. Lightheaded bump as per patient from vomiting. Denies headache symptoms. Poor appetite. Usual every other day bowel movements. At the ER, BSG is noted be 400s, IV insulin given at the ER. Medical History as above Surgical History : Knee surgery, thorascopy, lymphadenectomy, lung lobectomy, tonsillectomy/adenoidectomy Family History : Lung cancer, diabetes, renal cell carcinoma Personal/Social history :Past tobacco abuse, no EtOH intake, disabled Allergies Allergy/AdvReac Type Severity Reaction Status Date / Time bee venom protein (honey bee) Allergy Mild SWELLING Verified 09/06/18 15:34 AT SITE, SOB Penicillins Allergy Unknown "SINCE Unverified 09/06/18 15:34 "-Amoxicillin metoclopramide AdvReac Unknown hallucinati Verified 09/06/18 15:34 ons Home Medications Home Medications Medication Instructions Recorded Confirmed Type Maryanne IrwinPen U-100 Insulin 15 unit SUBCUT HS 05/05/18 11/17/18 History Humalog U-100 Insulin 1 sliding scale dose SUBCUT UD 05/05/18 11/17/18 History acetaminophen [Acetaminophen Extra 1,000 mg PO Q6H PRN 05/05/18 11/17/18 History Strength] albuterol sulfate 2 puff INHALATION Q4H PRN 05/05/18 11/17/18 History aspirin [Aspirin Low Dose] 81 mg PO DAILY 05/05/18 11/17/18 History epinephrine [EpiPen] 0.3 mg IM Q3H PRN 05/05/18 11/17/18 History ferrous sulfate 325 mg PO DAILY 05/05/18 11/17/18 History gabapentin 300 mg PO TID 05/05/18 11/17/18 History levetiracetam [Keppra] 500 mg PO BID 05/05/18 11/17/18 History lisinopril 40 mg PO DAILY 05/05/18 11/17/18 History metoprolol tartrate 75 mg PO BID 05/05/18 11/17/18 History multivitamin 1 tab PO DAILY 05/05/18 11/17/18 History ondansetron HCl 8 mg PO Q8H PRN 05/05/18 11/17/18 History oxycodone 10 mg PO Q4H PRN 05/05/18 11/17/18 History pantoprazole 40 mg PO DAILY 05/05/18 11/17/18 History polyethylene glycol 3350 [Miralax] 17 g PO DAILY 05/05/18 11/17/18 History prochlorperazine maleate 10 mg PO Q6H PRN 05/05/18 11/17/18 History trimethobenzamide 300 mg PO TID PRN 05/05/18 11/17/18 History fentanyl 125 mcg TRANSDERMAL .Q2D/UD 11/17/18 11/17/18 History fentanyl 125 mcg TRANSDERMAL .Q2D/UD 11/17/18 11/17/18 History linaclotide [Linzess] 72 mcg PO DAILY 11/17/18 11/17/18 History Past Med/Surg History Medical History Pneumonia Discharge planning issues DVT prophylaxis Nausea and vomiting IVAN (acute kidney injury) Acute hyponatremia (Acute) Chest pain (Acute) Acute dyspnea (Acute) Gastroparesis (Chronic) "s/p gastric stimulator" Hypertension (Chronic) Lung cancer (Chronic) "dx 01/2016; adenoCa SHAWN; + hilar nodes; s/p left upper lobectomy + chemo" On 08/05/16 16:31 Edie Mcfarland wrote "dx 01/2016; s/p L side lobectomy; currently undergoing chemo" Pneumonia (Resolved) Seizure disorder Diabetic peripheral neuropathy (Chronic) Diabetic autonomic neuropathy (Chronic) Chronic pain (Chronic) Intractable nausea and vomiting (Acute) Diabetes mellitus type 2, uncontrolled (Acute) Hypomagnesemia Orthostatic hypotension (Chronic) COPD (chronic obstructive pulmonary disease) Renal insufficiency Surgical History History of cholecystectomy (Chronic) History of tonsillectomy and adenoidectomy (Chronic) Hx of total knee arthroplasty (Chronic) S/P lobectomy of lung (Chronic) "left upper lobectomy for adenoCa" On 08/05/16 16:30 Edie Mcfarland wrote "L side @ [facility] 05/25/16" H/O esophagogastroduodenoscopy (Chronic) "01/26/2015- [place] Grade B reflux esophagitis, gastritis; Dr. Major" H/O colonoscopy (Chronic) " 04/22/2013- Mildly congested and erythematous mucosa in the ascending colon. One 1 mm polyp in the ascending colon resected. One benign appearing 1 mm polyp in the rectum resected. Internal hemorrhoids; Dr. Demarco" Status post insertion of intrathecal pump (Resolved) explanted Social History Preferred Language: Belarusian Communication Ability: Effective Manager Wellness Required: No Beliefs That Will Affect Care: None Current Living Situation: Alone Other Information That Helps Us Care for You: No Feels Safe at Home: Yes Safety Concerns: Feels Safe At This Time Smoking Status: Former smoker Tobacco Type: smokeless tobacco Second Hand Exposure: No Hx Alcohol Use: Yes Hx Substance Use: Yes substance use type: prescription drug Substance Use Type Other:: fentanyl patch 24hrs a day-refused removal of 2 patches Last Used Substance Other:: current patches intact Review of Systems Review of Systems: As per HPI, all 10 systems reviewed, all other ROS negative Physical Exam Physical Exam: GENERAL: uncomfortable, looks older than stated age, no respiratory distress SKIN: Pallor , warm HEENT: Partial alopecia, pale palpebral conjunctivae, no ptosis, dry buccal mucosa NECK : Supple, no tenderness CHEST : CTA, no tenderness HEART : RRR, systolic murmur ABDOMEN: Some distention, epigastric tenderness EXTREMITIES : minimal LE swelling, no LE tenderness, no other conspicuous deformities noted NEUROLOGIC : Coherent, no facial asymmetry, no other gross focality Results & Data Vital Signs (Past 12 Hours) Vital Signs Temp Pulse Resp BP Pulse Ox 11/18/18 01:01 84 15 11/18/18 01:00 84 17 138/83 11/18/18 00:31 81 14 11/18/18 00:30 82 16 112/70 11/18/18 00:01 84 17 11/18/18 00:00 84 16 116/71 11/17/18 23:30 92 H 13 152/95 H 11/17/18 23:01 89 23 11/17/18 23:00 89 26 H 204/126 H 11/17/18 22:32 88 13 53 L 11/17/18 22:31 86 13 194/108 H 100 11/17/18 22:25 87 19 204/111 H 100 11/17/18 22:23 91 H 22 100 11/17/18 20:53 36.6 C 124 H 24 231/89 H 100 Laboratory Results Laboratory Results WBC 6.68 K/uL (4.8-10.8) 11/17/18 21:13 RBC 4.20 M/uL (4.7-6.1) L 11/17/18 21:13 Hgb 12.2 g/dL (14.0-18.0) L 11/17/18 21:13 Hct 34.5 % (42-52) L 11/17/18 21:13 MCV 82.1 fL (80-100) 11/17/18 21:13 MCH 29.0 pg (25-34) 11/17/18 21:13 MCHC 35.4 g/dL (32-36) 11/17/18 21:13 RDW Std Deviation 38.5 fL (36.4-46.3) 11/17/18 21:13 RDW Coeff of Rik 12.8 % (11.5-14.5) 11/17/18 21:13 Plt Count 203 K/uL (130-400) 11/17/18 21:13 MPV 10.3 fL (7.4-10.4) 11/17/18 21:13 Immature Gran % (Auto) 0.3 % 11/17/18 21:13 Neut % (Auto) 68.8 % 11/17/18 21:13 Lymph % (Auto) 21.1 % 11/17/18 21:13 Lares % (Auto) 7.3 % 11/17/18 21:13 Eos % (Auto) 2.4 % 11/17/18 21:13 Baso % (Auto) 0.1 % 11/17/18 21:13 Immature Gran # (Auto) 0.02 K/uL (0.00-0.02) 11/17/18 21:13 Neut # (Auto) 4.59 K/uL (1.4-6.5) 11/17/18 21:13 Lymph # (Auto) 1.41 K/uL (1.2-3.4) 11/17/18 21:13 Lares # (Auto) 0.49 K/uL (0.11-0.59) 11/17/18 21:13 Eos # (Auto) 0.16 K/uL (0-0.5) 11/17/18 21:13 Baso # (Auto) 0.01 K/uL (0-0.2) 11/17/18 21:13 PT 10.4 Seconds (9.0-12.0) 11/17/18 22:37 INR 1.0 (0.9-1.1) 11/17/18 22:37 APTT 23.6 Seconds (21.0-31.0) 11/17/18 22:37 PTT Ratio 0.9 11/17/18 22:37 Sodium 130 mmol/L (136-145) L 11/17/18 21:13 Potassium 4.0 mmol/L (3.5-5.1) 11/17/18 22:37 Chloride 97 mmol/L (98-107) L 11/17/18 21:13 Carbon Dioxide 23 mmol/L (21-32) 11/17/18 21:13 Anion Gap 11.0 (3-11) 11/17/18 21:13 BUN 20 mg/dl (7-18) H 11/17/18 21:13 Creatinine 2.30 mg/dl (0.6-1.4) H 11/17/18 21:13 Est Cr Clr Drug Dosing 35.9 ml/min 11/17/18 21:13 Est GFR ( Amer) 36.2 11/17/18 21:13 Est GFR (Non-Af Amer) 31.3 11/17/18 21:13 BUN/Creatinine Ratio 8.5 (10-20) L 11/17/18 21:13 Glucose 445 mg/dl (70-99) H* 11/17/18 21:13 POC Glucose 249 (70-99) H 11/18/18 00:54 Osmolality 306 mOsm/kg (280-300) H 11/17/18 21:13 Calcium 9.7 mg/dl (8.5-10.1) 11/17/18 21:13 Total Bilirubin 0.5 mg/dl (0.2-1) 11/17/18 21:13 AST 16 U/L (15-37) 11/17/18 22:37 ALT 33 U/L (12-78) 11/17/18 21:13 Alkaline Phosphatase 119 U/L (45-117) H 11/17/18 21:13 Troponin I < 0.015 ng/ml (0-0.045) 11/17/18 21:13 Total Protein 8.7 gm/dl (6.4-8.2) H 11/17/18 21:13 Albumin 4.0 gm/dl (3.4-5.0) 11/17/18 21:13 Globulin 4.7 gm/dl (2.5-4.0) H 11/17/18 21:13 Albumin/Globulin Ratio 0.9 (0.9-2) 11/17/18 21:13 Lipase 37 U/L (73-393) L 11/17/18 22:37 Beta-Hydroxybutyric Acd TNP 11/17/18 21:13 TSH 0.465 uIu/ml (0.300-4.500) 11/17/18 22:37 Diagnostic Findings Chest x-ray as per my interpretation volume loss left lung EKG as per my interpretation : Rate 90, NSR, no ischemia, PVCs CT abdomen pelvis initial read: Gastric pacer tip terminating in the mid stomach. Status post cholecystectomy. No biliary dilatation no appendicitis no obstruction.
[2018-11-18] MEDS ORDERED: INSULIN GLARGINE SOLOSTAR 100 UNITS/ML 3 ML PEN SQ STA (01:17)
[2018-11-18] MEDS: METOPROLOL TARTRATE 25 MG TAB PO SCH ×3 (01:44→21:02)
[2018-11-18 01:48] LABS: Magnesium 1.6 mg/dl (1.8-2.4)
--- NOTE | 2018-11-18 02:23 | Emergency Department Note ---
Entered by Woodrow Alva acting as a scribe for History of Present Illness General Chief complaint: Shortness of Breath/Dyspnea Stated complaint: sob, upset stomach Time Seen by Provider: 11/17/18 21:57 Source: patient History of Present Illness Onset (ago): day(s) (yesterday) Location: chest Severity: similar to prior episodes Pain Consistency: + intermittent Maximum Pain Intensity: 8 Quality: + other (SOB) Associated symptoms: + other (Positive for nausea, vomiting, pain/swelling in the legs. Negative for CP, pain with breathing, fever, hematemesis, and cough.) The patient is a 53 year old male who presents to the emergency department with complaints of intermittent SOB beginning yesterday. The patient states that he started having nausea, vomiting, and SOB yesterday, He also complains of pain/swelling in his legs due to his chronic neuropathy. He denies any CP, pain with breathing, fever, hematemesis, and cough. He notes that he fell yesterday when he was vomiting but he denies any injury. He reports that he has a history of hypertension, gastroparesis, lung cancer, diabetes, COPD, and renal insufficiency. The patient states that his current symptoms feel like his gastroparesis. He denies any new medications and he reports that he is not on any blood thinners. The patient states that he is a former smoker. Home Medications Home Medications Medication Instructions Recorded Confirmed Type Basaglar KwikPen U-100 Insulin 15 unit SUBCUT HS 05/05/18 11/17/18 History Humalog U-100 Insulin 1 sliding scale dose SUBCUT UD 05/05/18 11/17/18 History acetaminophen [Acetaminophen Extra 1,000 mg PO Q6H PRN 05/05/18 11/17/18 History Strength] albuterol sulfate 2 puff INHALATION Q4H PRN 05/05/18 11/17/18 History aspirin [Aspirin Low Dose] 81 mg PO DAILY 05/05/18 11/17/18 History epinephrine [EpiPen] 0.3 mg IM Q3H PRN 05/05/18 11/17/18 History ferrous sulfate 325 mg PO DAILY 05/05/18 11/17/18 History gabapentin 300 mg PO TID 05/05/18 11/17/18 History levetiracetam [Keppra] 500 mg PO BID 05/05/18 11/17/18 History lisinopril 40 mg PO DAILY 05/05/18 11/17/18 History metoprolol tartrate 75 mg PO BID 05/05/18 11/17/18 History multivitamin 1 tab PO DAILY 05/05/18 11/17/18 History ondansetron HCl 8 mg PO Q8H PRN 05/05/18 11/17/18 History oxycodone 10 mg PO Q4H PRN 05/05/18 11/17/18 History pantoprazole 40 mg PO DAILY 05/05/18 11/17/18 History polyethylene glycol 3350 [Miralax] 17 g PO DAILY 05/05/18 11/17/18 History prochlorperazine maleate 10 mg PO Q6H PRN 05/05/18 11/17/18 History trimethobenzamide 300 mg PO TID PRN 05/05/18 11/17/18 History fentanyl 125 mcg TRANSDERMAL .Q2D/UD 11/17/18 11/17/18 History fentanyl 125 mcg TRANSDERMAL .Q2D/UD 11/17/18 11/17/18 History linaclotide [Linzess] 72 mcg PO DAILY 11/17/18 11/17/18 History Allergies Allergy/AdvReac Type Severity Reaction Status Date / Time bee venom protein (honey bee) Allergy Mild SWELLING Verified 09/06/18 15:34 AT SITE, SOB Penicillins Allergy Unknown "SINCE Unverified 09/06/18 15:34 "-Amoxicillin metoclopramide AdvReac Unknown hallucinati Verified 09/06/18 15:34 ons Past Med/Surg History Medical History Pneumonia Discharge planning issues DVT prophylaxis Nausea and vomiting IVAN (acute kidney injury) Acute hyponatremia (Acute) Chest pain (Acute) Acute dyspnea (Acute) Gastroparesis (Chronic) "s/p gastric stimulator" Hypertension (Chronic) Lung cancer (Chronic) "dx 01/2016; adenoCa SHAWN; + hilar nodes; s/p left upper lobectomy + chemo" On 08/05/16 16:31 Edie Mcfarland wrote "dx 01/2016; s/p L side lobectomy; currently undergoing chemo" Pneumonia (Resolved) Seizure disorder Diabetic peripheral neuropathy (Chronic) Diabetic autonomic neuropathy (Chronic) Chronic pain (Chronic) Intractable nausea and vomiting (Acute) Diabetes mellitus type 2, uncontrolled (Acute) Hypomagnesemia Orthostatic hypotension (Chronic) COPD (chronic obstructive pulmonary disease) Renal insufficiency Surgical History History of cholecystectomy (Chronic) History of tonsillectomy and adenoidectomy (Chronic) Hx of total knee arthroplasty (Chronic) S/P lobectomy of lung (Chronic) "left upper lobectomy for adenoCa" On 08/05/16 16:30 Edie Calerokaren wrote "L side @ [facility] [place] Lo 05/25/16" H/O esophagogastroduodenoscopy (Chronic) "01/26/2015- [place] Grade B reflux esophagitis, gastritis; Dr. Major" H/O colonoscopy (Chronic) " 04/22/2013- Mildly congested and erythematous mucosa in the ascending colon. One 1 mm polyp in the ascending colon resected. One benign appearing 1 mm polyp in the rectum resected. Internal hemorrhoids; Dr. Demarco" Status post insertion of intrathecal pump (Resolved) explanted Social History Preferred Language: Upper Sorbian Communication Ability: Effective Beliefs That Will Affect Care: None Current Living Situation: Alone Feels Safe at Home: Yes Smoking Status: Former smoker Tobacco Type: smokeless tobacco Hx Alcohol Use: No Hx Substance Use: Yes substance use type: prescription drug Review of Systems See HPI for pertinent positives & negatives. and A total of 10 systems reviewed and were otherwise negative Physical Exam Vital Signs Vital Signs - 24 hr 11/17/18 20:53 11/17/18 22:23 11/17/18 22:25 Temperature 36.6 C Temperature Source Oral Sepsis Recent Fever Within 48 Hours No Sepsis New/Unexplained Change in Mental Status No Sepsis Action Taken by Nursing No Action Required Pulse Rate 124 H 91 H 87 Pulse Rate from SpO2 Sensor 87 Pulse Rhythm Regular Regular Pulse Strength Normal Respiratory Rate 24 22 19 Respiratory Effort / Characteristics Non-Labored Spontaneous Respiratory Depth Normal Respiratory Pattern Regular Blood Pressure 231/89 H 204/111 H Blood Pressure Mean 136 142 Blood Pressure Position Sitting Pulse Oximetry 100 100 100 Oxygen Delivery Method Room Air Room Air Room Air 11/17/18 22:31 11/17/18 22:32 11/17/18 23:00 Temperature Temperature Source Sepsis Recent Fever Within 48 Hours Sepsis New/Unexplained Change in Mental Status Sepsis Action Taken by Nursing Pulse Rate 86 88 89 Pulse Rate from SpO2 Sensor 81 87 Pulse Rhythm Pulse Strength Respiratory Rate 13 13 26 H Respiratory Effort / Characteristics Respiratory Depth Respiratory Pattern Blood Pressure 194/108 H 204/126 H Blood Pressure Mean 136 152 Blood Pressure Position Pulse Oximetry 100 53 L Oxygen Delivery Method Room Air 11/17/18 23:01 11/17/18 23:30 11/18/18 00:00 Temperature Temperature Source Sepsis Recent Fever Within 48 Hours Sepsis New/Unexplained Change in Mental Status Sepsis Action Taken by Nursing Pulse Rate 89 92 H 84 Pulse Rate from SpO2 Sensor Pulse Rhythm Pulse Strength Respiratory Rate 23 13 16 Respiratory Effort / Characteristics Respiratory Depth Respiratory Pattern Blood Pressure 152/95 H 116/71 Blood Pressure Mean 114 86 Blood Pressure Position Pulse Oximetry Oxygen Delivery Method 11/18/18 00:01 11/18/18 00:30 11/18/18 00:31 Temperature Temperature Source Sepsis Recent Fever Within 48 Hours Sepsis New/Unexplained Change in Mental Status Sepsis Action Taken by Nursing Pulse Rate 84 82 81 Pulse Rate from SpO2 Sensor Pulse Rhythm Pulse Strength Respiratory Rate 17 16 14 Respiratory Effort / Characteristics Respiratory Depth Respiratory Pattern Blood Pressure 112/70 Blood Pressure Mean 84 Blood Pressure Position Pulse Oximetry Oxygen Delivery Method 11/18/18 01:00 11/18/18 01:01 Temperature Temperature Source Sepsis Recent Fever Within 48 Hours Sepsis New/Unexplained Change in Mental Status Sepsis Action Taken by Nursing Pulse Rate 84 84 Pulse Rate from SpO2 Sensor Pulse Rhythm Pulse Strength Respiratory Rate 17 15 Respiratory Effort / Characteristics Respiratory Depth Respiratory Pattern Blood Pressure 138/83 Blood Pressure Mean 101 Blood Pressure Position Pulse Oximetry Oxygen Delivery Method General: Non-ill appearing middle age male holding emesis bag. HEENT: Normal cephalic atraumatic. Pupils are equal round and reactive to light. Extraocular movements are intact. Oropharynx is pink with somewhat dry mucous membranes. No swelling of the mouth lips or tongue. Neck: Supple with a midline trachea. No meningeal signs or stiffness, no JVD or bruits. No Stridor. Chest: Clear to auscultation bilaterally. No wheezes or rhonchi. No increased work of breathing. Heart: regular rate and rhythm. Abdomen: Soft nontender, nondistended without rebound guarding or rigidity. Extremities: No cyanosis clubbing or edema. No calf tenderness or asymmetry Spine/Back. Non tender to palpation. No CVA tenderness Skin: Good turgor without rashes. Neurologic exam: Cranial nerves two through 12 are intact. Motor and sensation are intact and symmetrical throughout. Course 2156: The patient was evaluated in room A10. A complete history and physical exam was performed. The patient was admitted in May,, for similar symptoms. He had pneumonia at that time. He had an EF of 50-60%. 2233: I reevaluated and updated the patient. 2333: I rechecked the patient. He complains that everything hurts. He is belching in the room. He will get another liter of fluids. I ordered compazine and Dilaudid and will get admitted. 0039: Upon reevaluation, the patient is stable. I discussed the findings and the treatment plan with the patient. He expresses agreement and understanding. I spoke with Dr. Chinchilla of the [facility] Hospitalist [facility]. The patient will be evaluated for further management. Consultations Consultation #1: I [facility] the [facility] He will evaluate the patient for further management. Time: 00:39 Administered Medications Metoprolol Tartrate (Lopressor) 75 mg PO BID DAMIR Stop: 12/18/18 00:44 Last Admin: 11/18/18 01:44 Dose: 75 mg Documented by: [id number] Discontinued Medications Hydromorphone HCl (Dilaudid) 1 mg IV NOW STA Stop: 11/17/18 22:03 Last Admin: 11/17/18 22:10 Dose: 1 mg Documented by: [id number] Hydromorphone HCl (Dilaudid) 1 mg IV NOW STA Stop: 11/17/18 23:30 Last Admin: 11/17/18 23:37 Dose: 1 mg Documented by: [id number] Sodium Chloride (Nss 1000ml) 1,000 mls @ 999 mls/hr IV .Q1H1M DAMIR Stop: 11/17/18 23:15 Last Infusion: 11/17/18 23:04 Dose: 0 mls/hr Documented by: [id number] Admin: 11/17/18 22:10 Dose: 999 mls/hr Documented by: [id number] Insulin Human Regular 5 units/ (Syringe) 0.05 mls @ 0 mls/hr IV ONE STA Stop: 11/17/18 22:32 Last Admin: 11/17/18 23:05 Dose: 5 mls/hr Documented by: [id number] Cosigned by: [id number] Prochlorperazine 10 mg/ (Syringe) 10 mls @ 5 mls/min IV ONE ONE Stop: 11/17/18 23:30 Last Admin: 11/17/18 23:38 Dose: Not Given Documented by: [id number] Sodium Chloride (Nss 1000ml) 1,000 mls @ 999 mls/hr IV .Q1H1M ONE Stop: 11/18/18 00:29 Last Infusion: 11/18/18 01:03 Dose: 0 mls/hr Documented by: [id number] Admin: 11/17/18 23:37 Dose: 999 mls/hr Documented by: [id number] Insulin Human Regular 5 units/ (Syringe) 5 mls @ 0 mls/hr IV ONE STA Stop: 11/18/18 00:59 Last Admin: 11/18/18 01:01 Dose: Not Given Documented by: [id number] Insulin Glargine (Lantus Solostar Pen) 10 units SQ NOW STA Stop: 11/18/18 01:18 Last Admin: 11/18/18 01:44 Dose: 10 units Documented by: [id number] Cosigned by: [id number] Ondansetron HCl (Zofran) 4 mg IV NOW STA Stop: 11/17/18 22:03 Last Admin: 11/17/18 22:10 Dose: 4 mg Documented by: [id number] Prochlorperazine (Compazine) Confirm Administered Dose 10 mg .ROUTE .STK-MED ONE Stop: 11/17/18 23:35 Last Admin: 11/17/18 23:37 Dose: 10 mg Documented by: [id number] Medical Decision Making Differential Diagnosis Differential diagnoses include: gastroparesis, COPD, acute coronary syndrome, diabetes complication, infection, electrolyte/metabolic abnormalities, and PE. Medical Records Attestation: I reviewed the patient's medical records. Home Medications Current Medication List: was personally reviewed by me Laboratory Data Attestation: I reviewed the patient's lab results. Result diagrams: 11/17/18 21:13 11/17/18 22:37 Lab Results 11/17/18 11/17/18 11/17/18 Range/Units 21:13 21:13 21:13 WBC 6.68 (4.8-10.8) K/uL RBC 4.20 L (4.7-6.1) M/uL Hgb 12.2 L (14.0-18.0) g/dL Hct 34.5 L (42-52) % MCV 82.1 (80-100) fL MCH 29.0 (25-34) pg MCHC 35.4 (32-36) g/dL RDW Std Deviation 38.5 (36.4-46.3) fL RDW Coeff of Rik 12.8 (11.5-14.5) % Plt Count 203 (130-400) K/uL MPV 10.3 (7.4-10.4) fL Immature Gran % (Auto) 0.3 % Neut % (Auto) 68.8 % Lymph % (Auto) 21.1 % Johnson % (Auto) 7.3 % Eos % (Auto) 2.4 % Baso % (Auto) 0.1 % Immature Gran # (Auto) 0.02 (0.00-0.02) K/uL Neut # (Auto) 4.59 (1.4-6.5) K/uL Lymph # (Auto) 1.41 (1.2-3.4) K/uL Johnson # (Auto) 0.49 (0.11-0.59) K/uL Eos # (Auto) 0.16 (0-0.5) K/uL Baso # (Auto) 0.01 (0-0.2) K/uL PT Cancelled INR Cancelled APTT Cancelled PTT Ratio Cancelled Sodium 130 L (136-145) mmol/L Potassium (3.5-5.1) mmol/L Chloride 97 L (98-107) mmol/L Carbon Dioxide 23 (21-32) mmol/L Anion Gap 11.0 (3-11) BUN 20 H (7-18) mg/dl Creatinine 2.30 H (0.6-1.4) mg/dl Est Cr Clr Drug Dosing 35.9 ml/min Est GFR ( Amer) 36.2 Est GFR (Non-Af Amer) 31.3 BUN/Creatinine Ratio 8.5 L (10-20) Glucose 445 H* (70-99) mg/dl POC Glucose (70-99) Osmolality (280-300) mOsm/kg Calcium 9.7 (8.5-10.1) mg/dl Magnesium (1.8-2.4) mg/dl Total Bilirubin 0.5 (0.2-1) mg/dl AST (15-37) U/L ALT 33 (12-78) U/L Alkaline Phosphatase 119 H (45-117) U/L Troponin I < 0.015 (0-0.045) ng/ml Total Protein 8.7 H (6.4-8.2) gm/dl Albumin 4.0 (3.4-5.0) gm/dl Globulin 4.7 H (2.5-4.0) gm/dl Albumin/Globulin Ratio 0.9 (0.9-2) Lipase (73-393) U/L Beta-Hydroxybutyric Acd TNP TSH (0.300-4.500) uIu/ml 11/17/18 11/17/18 11/17/18 Range/Units 21:13 22:14 22:16 WBC (4.8-10.8) K/uL RBC (4.7-6.1) M/uL Hgb (14.0-18.0) g/dL Hct (42-52) % MCV (80-100) fL MCH (25-34) pg MCHC (32-36) g/dL RDW Std Deviation (36.4-46.3) fL RDW Coeff of Rik (11.5-14.5) % Plt Count (130-400) K/uL MPV (7.4-10.4) fL Immature Gran % (Auto) % Neut % (Auto) % Lymph % (Auto) % Johnson % (Auto) % Eos % (Auto) % Baso % (Auto) % Immature Gran # (Auto) (0.00-0.02) K/uL Neut # (Auto) (1.4-6.5) K/uL Lymph # (Auto) (1.2-3.4) K/uL Johnson # (Auto) (0.11-0.59) K/uL Eos # (Auto) (0-0.5) K/uL Baso # (Auto) (0-0.2) K/uL PT INR APTT PTT Ratio Sodium (136-145) mmol/L Potassium (3.5-5.1) mmol/L Chloride (98-107) mmol/L Carbon Dioxide (21-32) mmol/L Anion Gap (3-11) BUN (7-18) mg/dl Creatinine (0.6-1.4) mg/dl Est Cr Clr Drug Dosing ml/min Est GFR ( Amer) Est GFR (Non-Af Amer) BUN/Creatinine Ratio (10-20) Glucose (70-99) mg/dl POC Glucose 420 H* 469 H* (70-99) Osmolality 306 H (280-300) mOsm/kg Calcium (8.5-10.1) mg/dl Magnesium (1.8-2.4) mg/dl Total Bilirubin (0.2-1) mg/dl AST (15-37) U/L ALT (12-78) U/L Alkaline Phosphatase (45-117) U/L Troponin I (0-0.045) ng/ml Total Protein (6.4-8.2) gm/dl Albumin (3.4-5.0) gm/dl Globulin (2.5-4.0) gm/dl Albumin/Globulin Ratio (0.9-2) Lipase (73-393) U/L Beta-Hydroxybutyric Acd TSH (0.300-4.500) uIu/ml 11/17/18 11/17/18 11/18/18 Range/Units 22:37 22:37 00:54 WBC (4.8-10.8) K/uL RBC (4.7-6.1) M/uL Hgb (14.0-18.0) g/dL Hct (42-52) % MCV (80-100) fL MCH (25-34) pg MCHC (32-36) g/dL RDW Std Deviation (36.4-46.3) fL RDW Coeff of Rik (11.5-14.5) % Plt Count (130-400) K/uL MPV (7.4-10.4) fL Immature Gran % (Auto) % Neut % (Auto) % Lymph % (Auto) % Johnson % (Auto) % Eos % (Auto) % Baso % (Auto) % Immature Gran # (Auto) (0.00-0.02) K/uL Neut # (Auto) (1.4-6.5) K/uL Lymph # (Auto) (1.2-3.4) K/uL Johnson # (Auto) (0.11-0.59) K/uL Eos # (Auto) (0-0.5) K/uL Baso # (Auto) (0-0.2) K/uL PT 10.4 INR 1.0 APTT 23.6 PTT Ratio 0.9 Sodium (136-145) mmol/L Potassium 4.0 (3.5-5.1) mmol/L Chloride (98-107) mmol/L Carbon Dioxide (21-32) mmol/L Anion Gap (3-11) BUN (7-18) mg/dl Creatinine (0.6-1.4) mg/dl Est Cr Clr Drug Dosing ml/min Est GFR ( Amer) Est GFR (Non-Af Amer) BUN/Creatinine Ratio (10-20) Glucose (70-99) mg/dl POC Glucose 249 H (70-99) Osmolality (280-300) mOsm/kg Calcium (8.5-10.1) mg/dl Magnesium 1.6 L (1.8-2.4) mg/dl Total Bilirubin (0.2-1) mg/dl AST 16 (15-37) U/L ALT (12-78) U/L Alkaline Phosphatase (45-117) U/L Troponin I (0-0.045) ng/ml Total Protein (6.4-8.2) gm/dl Albumin (3.4-5.0) gm/dl Globulin (2.5-4.0) gm/dl Albumin/Globulin Ratio (0.9-2) Lipase 37 L (73-393) U/L Beta-Hydroxybutyric Acd TSH 0.465 (0.300-4.500) uIu/ml Imaging Data My Impression: CHEST X-RAY: Mildly increased interstitial markings but no overt failure. ECG Data Attestation: I personally reviewed and interpreted this ECG as follows: Indication: SOB/dyspnea Rate (beats per minute): 93 Rhythm: normal sinus Findings: no PAC, no PVC, no ST depression and no ST elevation Comparison ECG Date: from (09/06/2018) Change: no significant change Additional Comments: Poor baseline, poor R wave progression. Blood Pressure Blood Pressure Findings: Elevated blood pressure Blood Pressure Disposition: further management by hospitalist [facility] Narrative This patient comes in as described above. He was placed in room A10. He does have a very complex medical history and has been vomiting. He is also has shortness of breath and body aches he said this is typically how he feels when he gets a flareup from his gastroparesis from his diabetes. He denies any chest pain. He was tachycardic initially although appears to be in a significant amount of pain diffusely in his body. IV access was established and blood work was obtained. His abdomen is benign and not significantly tender. He does not appear to be any significant respiratory distress. Chest x-ray was unremarkable. EKG does not suggest acute coronary syndrome or arrhythmia. His blood work shows a blood sugar in the 400s however he does not have acidosis. He has some renal insufficiency/failure which is slightly worse than last time in the mid 2 range. He did receive 2 liters of IV normal saline while in the ER. He also received IV Zofran and IV Dilaudid. He was still having nausea and dry heaves and pain and was given additional Dilaudid he also asked Compazine which I gave him as well 10 mg IV. I do think he needs to be admitted/observe for hydration and pain management and further evaluation. I will consult Dr. Spencer to see him in the ER. Impression & Plan Dehydration, Gastroparesis, Hyperglycemia, Shortness of breath Discharge Plan Visit Data Chief Complaint: Shortness of Breath/Dyspnea Stated Complaint: sob, upset stomach ED Provider: Jeff Fisher Discharge Problem: Dehydration, Gastroparesis, Hyperglycemia, Shortness of breath Patient Disposition: Being Evaluated by Hospitalist Forms Stand Alone Forms: My [facility] Prescriptions Prescriptions: No Action multivitamin Tablet 1 tab PO DAILY RF: 0 levetiracetam [Keppra] 500 mg Tablet 500 mg PO BID RF: 0 ondansetron HCl 8 mg Tablet 8 mg PO Q8H PRN (Reason: Nausea) RF: 0 prochlorperazine maleate 10 mg Tablet 10 mg PO Q6H PRN (Reason: Acid Reflux) RF: 0 aspirin [Aspirin Low Dose] 81 mg Tablet,Delayed Release (Dr/Ec) 81 mg PO DAILY RF: 0 acetaminophen [Acetaminophen Extra Strength] 500 mg Tablet 1,000 mg PO Q6H PRN (Reason: Pain) RF: 0 pantoprazole 40 mg tablet,delayed release (DR/EC) 40 mg PO DAILY RF: 0 ferrous sulfate 325 mg (65 mg iron) Tablet 325 mg PO DAILY RF: 0 gabapentin 300 mg Capsule 300 mg PO TID RF: 0 epinephrine [EpiPen] 0.3 mg/0.3 mL Auto-Injector 0.3 mg IM Q3H PRN (Reason: Allergic Reaction) RF: 0 polyethylene glycol 3350 [Miralax] 17 gram/dose Powder 17 g PO DAILY RF: 0 albuterol sulfate 90 mcg/actuation Hfa Aerosol Inhaler 2 puff INHALATION Q4H PRN (Reason: Shortness Of Breath) RF: 0 lisinopril 40 mg Tablet 40 mg PO DAILY RF: 0 trimethobenzamide 300 mg Capsule 300 mg PO TID PRN (Reason: Nausea And Vomiting) RF: 0 Humalog U-100 Insulin 100 unit/mL Cartridge 1 sliding scale dose SUBCUT UD RF: 0 metoprolol tartrate 25 mg Tablet 75 mg PO BID RF: 0 Basaglar KwikPen U-100 Insulin 100 unit/mL (3 mL) Insulin Pen 15 unit SUBCUT HS RF: 0 oxycodone 10 mg Tablet 10 mg PO Q4H PRN (Reason: Pain) RF: 0 fentanyl 100 mcg/hr patch 72 hour 125 mcg transdermal .Q2D/UD RF: 0 fentanyl 25 mcg/hr patch 72 hour 125 mcg transdermal .Q2D/UD RF: 0 Linzess 72 mcg capsule 72 mcg PO DAILY RF: 0 Referrals Referrals: Lionel Lutz DO [Primary Care Provider] - The scribe's documentation has been prepared under my direction and personally reviewed by me in its entirety. I confirm that the note above accurately reflects all work, treatment, procedures, and medical decision making performed by me.
[2018-11-18] MEDS ORDERED: HydrALAZINE HCL 20 MG/ML VIAL IV ONE (02:51)
[2018-11-18] MEDS ORDERED: SODIUM CHLORIDE 0.9% 1000ML 1,000 ML IV ONE (03:04)
[2018-11-18] MEDS ORDERED: GLUCOSE 10 TABS/TUBE PO PRN (03:04)
[2018-11-18] MEDS ORDERED: LORazepam 0.25 MG/0.5 ML VIAL IV PRN (03:04)
[2018-11-18] MEDS ORDERED: HYDROmorphone INJ 0.5 MG/0.5 ML SYR IV PRN (03:04)
[2018-11-18] MEDS ORDERED: GLUCOSE 40% GEL 15 GM TUBE PO PRN (03:04)
[2018-11-18] MEDS ORDERED: DEXTROSE 50% 50 ML SYRINGE IV PRN (03:04)
[2018-11-18] MEDS ORDERED: ACETAMINOPHEN 325 MG TAB PO PRN (03:04)
[2018-11-18] MEDS ORDERED: GLUCAGON FOR INJ 1 MG VIAL SQ PRN (03:04)
[2018-11-18] MEDS ORDERED: FOSAPREPITANT DIMEGLUMINE 115 MG in 0.9 % SODIUM CHLORIDE 111.2 ML IV ONE (03:30)
[2018-11-18] MEDS: INSULIN ASPART 100 UNITS/ML 3 ML PEN SC SCH ×5 (05:04→20:59)
[2018-11-18] MEDS: HEPARIN SOD 5,000 UNIT/0.5 ML VIAL SQ SCH ×2 (06:15→13:48)
[2018-11-18] MEDS: OXYCODONE HCL IR 5 MG TAB (IMMEDIATE RELEASE) PO PRN ×2 (06:21→13:01)
[2018-11-18 06:27] LABS: Estimated Average Glucose 312 mg/dl; Hemoglobin A1C 12.5 % (4.5-5.6)
[2018-11-18] MEDS ORDERED: MAGNESIUM SULFATE / D5W 1 GM/100 ML BAG IV ONE (06:45)
--- NOTE | 2018-11-18 07:07 | XRay Report ---
SINGLE VIEW CHEST CLINICAL HISTORY: Dyspnea. Lung cancer. FINDINGS: An AP, portable, upright chest radiograph is compared to study dated 09/06/2018 and correlate d with chest CT dated 07/11/2018. The examination is degraded by portable technique, apical lordotic po sitioning, and patient rotation. The cardiomediastinal silhouette is unremarkable. There is volume loss in the left lung consistent with a history of previous surgical resection. Chronic interstitial thickening is similar to previous. Trace pleural fluid is noted at the left lung base. No airspace co nsolidation is seen typical for pneumonia. No pneumothorax is seen. The skeletal structures are osteo penic. The bony thorax is grossly intact. Gastric leads are noted in the left upper quadrant. IMPRESSION: 1. No acute cardiopulmonary abnormality is identified. 2. There is volume loss in the left lung consistent with previous surgical resection. Electronically signed by: Russell Ty M.D. 11/18/2018 7:06 AM
--- NOTE | 2018-11-18 07:24 | CT Scan Report ---
CT abd pelvis wo con CT DOSE: 338.72 mGy.cm HISTORY: Pain. Nausea. abd pain TECHNIQUE: Multiaxial CT images of the abdomen and pelvis were performed without contrast. A dose lo wering technique was utilized adhering to the principles of ALARA. COMPARISON STUDY: 05/12/2017 FINDINGS: Lung bases are clear. Gastric pacemaker mid stomach. Prior cholecystectomy. Kidneys negative for hydronephrosis. Nonobstructive bowel pattern. IMPRESSION: 1. No acute process in the abdomen or pelvis. 2. Gastric pacer in good position. 3. Prior cholecystectomy. 4. Nonobstructive bowel pattern. 5. Normal appendix. The above report was generated using voice recognition software. It may contain grammatical, syntax or spelling errors. Electronically signed by: Fuad Betancourt M.D. 11/18/2018 7:23 AM
[2018-11-18 07:57] LABS: Basophils # (auto) 0.01 K/uL (0-0.2); Basophils % (auto) 0.2 %; Eosinophils # (auto) 0.18 K/uL (0-0.5); Eosinophils % (auto) 3.1 %; Hematocrit (blood only) 30.7 % (42-52); Hemoglobin 10.5 g/dL (14.0-18.0); Immature Granulocytes # (auto) 0.01 K/uL (0.00-0.02); Immature Granulocytes % (auto) 0.2 %; Lymphocytes # (auto) 2.44 K/uL (1.2-3.4); Lymphocytes % (auto) 41.7 %; Mean Corpuscular Hgb Conc 34.2 g/dL (32-36); Mean Platelet Volume 9.8 fL (7.4-10.4); Monocytes # (auto) 0.42 K/uL (0.11-0.59); Monocytes % (auto) 7.2 %; Neutrophils # (auto) 2.79 K/uL (1.4-6.5); Neutrophils % (auto) 47.6 %; Platelet Count 204 K/uL (130-400); RDW Coefficient of Variation 12.9 % (11.5-14.5); RDW Standard Deviation 39.7 fL (36.4-46.3); Red Blood Count 3.61 M/uL (4.7-6.1); White Blood Count 5.85 K/uL (4.8-10.8)
[2018-11-18 08:32] LABS: BUN Creatinine Ratio 10.3 (10-20); Calcium 8.7 mg/dl (8.5-10.1); Creatinine Clr Calc Pharmacy 42.8 ml/min; Est GFR (African American) 44.8; Est GFR (Non-African American) 38.6; Potassium 3.8 mmol/L (3.5-5.1)
[2018-11-18] MEDS: PROMETHAZINE HCL 12.5 MG in SODIUM CHLORIDE 0.9% 50 ML IV PRN (10:17)
[2018-11-18] MEDS: GABAPENTIN 100 MG CAP PO SCH ×3 (11:47→20:59)
[2018-11-18] MEDS: ASPIRIN 81 MG ECTAB PO SCH (12:52)
[2018-11-18] MEDS: levETIRAcetam 500 MG TAB PO SCH ×2 (12:52→20:59)
[2018-11-18] MEDS: PANTOprazole 40 MG TAB PO SCH (12:52)
[2018-11-18] MEDS: LINACLOTIDE 72 MCG CAPSULE PO SCH (12:52)
[2018-11-18] MEDS: DOCUSATE SODIUM/SENNA 50/8.6MG TAB PO SCH (12:52)
[2018-11-18] MEDS: POLYETHYLENE (MIRALAX) 17 GM PACK PO SCH (12:52)
[2018-11-18] MEDS: MULTIVITAMIN TAB PO SCH (12:52)
[2018-11-18 13:52] LABS: Appearance Urine Clear (Clear); Bacteria Urine Automated Negative (Negative); Bilirubin Urine Negative (Negative); Blood Urine Negative (Negative); Color Urine Yellow; Epithelial Cell Urine Auto >30 /lpf (0-5); Glucose Urine UA 3+ (Negative); Ketones Urine Negative (Negative); Leukocyte Esterase Urine Negative (Negative); Nitrite Urine Negative (Negative); Protein Urine 3+ (Negative); RBC Urine Automated 0-4 /hpf (0-4); Specific Gravity Urine 1.027 (1.000-1.030); Urobilinogen Urine Negative (Negative); pH Urine 5.5 (4.5-7.5)
[2018-11-18 14:17] LABS: Sperm Urine Present (None Prsent)
[2018-11-18 14:18] LABS: Mucus Urine Present (None Prsent)
[2018-11-18] MEDS: HYDROmorphone INJ 0.5 MG/0.5 ML SYR IV PRN (14:34)
[2018-11-18] MEDS ORDERED: CHECK FENTANYL PATCH PLACEMENT SCH (16:00)
[2018-11-18] MEDS ORDERED: PROMETHAZINE HCL 6.25 MG in SODIUM CHLORIDE 0.9% 50 ML IV STA (18:10)
[2018-11-18] MEDS ORDERED: fentaNYL 100 MCG/HR TDSY TD ONE ×2 (18:11→18:45)
[2018-11-18] MEDS ORDERED: fentaNYL 25 MCG/HR TDSY TD ONE (18:45)
--- NOTE | 2018-11-18 18:58 | Hospitalist Progress Note ---
Date of Service November 18, 2018 Assessment & Plan (1) Renal failure (ARF), acute on chronic: Clinical dehydration secondary to intractable nausea, emesis secondary to gastroparesis flareup hx gastric pacemaker Gastroparesis problem compounded by chronic pain on narcotic regimen. -creatinine downtrended from 2.3 on presentation to 1.9 on AM of 11/18/18. IV fluids stopped on evening of 11/18/18. follow the renal function on next AM labs -has gastric stimulator -anti-emetics for vomiting -at patient request he wants to trasnition from full liquid diet to puree diet -Fentanyl patches removed because of acute pain -prn oxycodone -trial of Emend, continue Hypertension, elevated secondary discomfort -blood pressure controlled on 11/18/18 -continue metoprolol -resume lisinopril Type 2 diabetes mellitus with half-way current use of insulin, uncontrolled -suboptimal control as of recent outpatient hemoglobin A1c of 8.9 last May 2018 -continue insulin -diabetic diet -request pharmacy glycemic control consult chronic anemia NSCLC stage III, status post surgery, incomplete chemotherapy secondary to intolerance, Past tobacco use Seizure prophylaxis -continue home dose Keppra DVT prophylaxis. SCDs, encourage ambulation Full code Subjective Patient requesting diet be advanced from full liquid to puree diet. requesting new Fentaynl patch for pain. some episodes of vomiting. no shortness of breath. breathing on room air. Physical Exam Constitutional: WD/WN, vitals as above Eyes: PERRL, conjunctivae normal, anicteric sclerae EOM intact bilaterally ENMT: external ear and nose normal, oropharynx normal Neck: trachea midline, no thyromegaly Respiratory: normal respiratory effort, lungs clear to auscultation Cardiovascular: RRR, no murmur, no edema Gastrointestinal (Abdomen): normal bowel sounds, soft, nontender, no hepatosplenomegaly Musculoskeletal: Head/Neck/Chest: normocephalic and head atraumatic Neurologic: PERRL, EOMI, accommodation nl, no face palsy, no dysarthria CN's II-XI intact bilaterally Psychiatric: A+Ox3, euthymic affect Results & Data Vital Signs (Past 12 Hours) Vital Signs Temp Pulse Resp BP BP Pulse Ox 11/18/18 15:44 36.7 C 70 16 105/71 100 11/18/18 12:56 74 154/84 H 11/18/18 07:24 125/78 11/18/18 07:01 36.6 C 69 18 87/56 L 99
[2018-11-18] MEDS ORDERED: PHARMACY GLYCEMIC MGMT CONSULT PRN (19:39)
[2018-11-18] MEDS: LISINOPRIL 40 MG TAB PO SCH (20:59)
[2018-11-18] MEDS ORDERED: INSULIN GLARGINE SOLOSTAR 100 UNITS/ML 3 ML PEN SC SCH ×2 (21:00)
[2018-11-19] MEDS: HYDROmorphone INJ 0.5 MG/0.5 ML SYR IV PRN ×4 (00:29→20:56)
[2018-11-19] MEDS: CHECK FENTANYL PATCH PLACEMENT SCH ×4 (00:30→23:37)
[2018-11-19] MEDS: INSULIN ASPART 100 UNITS/ML 3 ML PEN SC SCH ×6 (00:37→21:01)
[2018-11-19] MEDS: PROMETHAZINE HCL 12.5 MG in SODIUM CHLORIDE 0.9% 50 ML IV PRN ×3 (04:54→20:09)
[2018-11-19 08:17] LABS: Basophils # (auto) 0.01 K/uL (0-0.2); Basophils % (auto) 0.1 %; Eosinophils # (auto) 0.24 K/uL (0-0.5); Eosinophils % (auto) 3.3 %; Hematocrit (blood only) 28.7 % (42-52); Hemoglobin 9.6 g/dL (14.0-18.0); Immature Granulocytes # (auto) 0.02 K/uL (0.00-0.02); Immature Granulocytes % (auto) 0.3 %; Lymphocytes # (auto) 1.47 K/uL (1.2-3.4); Mean Corpuscular Hgb Conc 33.4 g/dL (32-36); Mean Corpuscular Volume 86.7 fL (80-100); Mean Platelet Volume 9.8 fL (7.4-10.4); Monocytes # (auto) 0.56 K/uL (0.11-0.59); Monocytes % (auto) 7.6 %; Neutrophils # (auto) 5.06 K/uL (1.4-6.5); Neutrophils % (auto) 68.7 %; Platelet Count 174 K/uL (130-400); RDW Coefficient of Variation 13.2 % (11.5-14.5); RDW Standard Deviation 42.3 fL (36.4-46.3); Red Blood Count 3.31 M/uL (4.7-6.1); White Blood Count 7.36 K/uL (4.8-10.8)
[2018-11-19] MEDS: LISINOPRIL 40 MG TAB PO SCH (08:33)
[2018-11-19] MEDS: ASPIRIN 81 MG ECTAB PO SCH (08:34)
[2018-11-19] MEDS: METOPROLOL TARTRATE 25 MG TAB PO SCH ×2 (08:34→21:01)
[2018-11-19] MEDS: MULTIVITAMIN TAB PO SCH (08:34)
[2018-11-19] MEDS: levETIRAcetam 500 MG TAB PO SCH ×2 (08:34→21:15)
[2018-11-19] MEDS: PANTOprazole 40 MG TAB PO SCH (08:34)
[2018-11-19] MEDS: LINACLOTIDE 72 MCG CAPSULE PO SCH (08:34)
[2018-11-19] MEDS: GABAPENTIN 100 MG CAP PO SCH ×3 (08:34→21:01)
[2018-11-19] MEDS: POLYETHYLENE (MIRALAX) 17 GM PACK PO SCH (08:35)
[2018-11-19] MEDS: DOCUSATE SODIUM/SENNA 50/8.6MG TAB PO SCH (08:36)
[2018-11-19 08:56] LABS: Albumin Globulin Ratio 0.8 (0.9-2); BUN Creatinine Ratio 9.6 (10-20); Bilirubin,Total 0.2 mg/dl (0.2-1); Calcium 8.3 mg/dl (8.5-10.1); Creatinine Clr Calc Pharmacy 46.4 ml/min; Est GFR (African American) 49.4; Est GFR (Non-African American) 42.6; Globulin 3.6 gm/dl (2.5-4.0); Potassium 4.7 mmol/L (3.5-5.1); Total Protein 6.6 gm/dl (6.4-8.2)
[2018-11-19] MEDS ORDERED: fentaNYL 25 MCG/HR TDSY TD SCH (09:00)
[2018-11-19] MEDS ORDERED: INSULIN GLARGINE SOLOSTAR 100 UNITS/ML 3 ML PEN SC SCH (09:00)
[2018-11-19] MEDS ORDERED: fentaNYL 100 MCG/HR TDSY TD SCH (09:00)
[2018-11-19] MEDS: CARBOHYDRATES FOR HYPOGLYCEMIA PO PRN ×2 (15:28→15:51)
--- NOTE | 2018-11-19 16:15 | Pharmacy Report ---
Glycemic Control Consultation - Date of Service November 19, 2018 - Scope Scope: Glycemic Pharmacist consulted by Dr Bagley on 11/18 for glycemic control and to write orders per [facility] inpatient glycemic control protocol - Objective Weight: 77.27 kg Accuchecks BSG (last 24hrs): 11/18/18 11/18/18 11/18/18 17:41 20:36 23:51 Glucose POC Glucose 169 H 307 H* 95 11/19/18 11/19/18 11/19/18 03:54 08:01 08:18 Glucose 201 H POC Glucose 124 H 203 H 11/19/18 11/19/18 11/19/18 12:10 15:25 15:27 Glucose POC Glucose 183 H 46 L* 52 L* 11/19/18 11/19/18 15:41 15:43 Glucose POC Glucose 50 L* 54 L* Laboratory Data (last 24hrs): 11/19/18 08:01 Potassium 4.7 D Carbon Dioxide 23 Anion Gap 6.0 Creatinine 1.78 H Est Cr Clr Drug Dosing 46.4 HbA1c: Hemoglobin A1c 12.5 % (4.5-5.6) H 11/17/18 21:13 - Recent Pertinent Medications Outpatient Anti-diabetic Regimen: * Basaglar 15 units HS, Humalog SSI UD * A1c = 12.5 % [date] Risk Factors for Insulin Resistance: * Diet: T2DM - Assessment & Plan Assessment & Plan: ASSESSMENT: * 53 year old type 2 diabetic managed on basaglar and humalog at home. Admitted with increased shortness of breath/dyspnea * PMHx significant for htn, NSCLC stage III, chronic anemia, gastroparesis * Patient received total of 23 units of insulin yesterday, of which 12 were basal * Fasting BSG this morning elevated at 203 mg/dL - continued same CF/CR (similar to other admissions) * Patient with low BSG this afternoon at 46 mg/dL - per nurse, patient was throwing up and not feeling well. Of note, patient also snacking in between me als * Will loosen up CF/CR and also adjust scale for Lantus tonight PLAN FOR INPATIENT GLYCEMIC CONTROL: * Basal insulin * Lantus HS -For BSG less than 120 - give 7 units -For BSG 120-180 - give 10 units -For BSG greater than 180 - give 12 units * Bolus insulin * NovoLog per scale ACHS or Q6hrs while NPO * Goal Range: Low 140 mg/dL - High 180 mg/dL * Correction Factor: 35 mg/dL/unit * Nutritional / Prandial insulin per carb ratio of 1 unit per 15 grams CHO consumed * Please note that the plan above was derived based on current level of insulin resistance and hospital stress. These recommendations are appropriate for inpatient admission only. Plan of care upon discharge will need to be reassessed to avoid potential outpatient hypo/hyperglycemia. Thank you.
--- NOTE | 2018-11-19 18:06 | Hospitalist Progress Note ---
Date of Service November 19, 2018 Assessment & Plan (1) Gastroparesis: With possible acute flareup Received Emend during initial admission Still having emesis Continue pured diet, PRN antiemetics We will consult GI, placed on n.p.o. overnight for possible EGD (2) Renal failure (ARF), acute on chronic: Clinical dehydration secondary to intractable nausea, emesis secondary to gastroparesis flareup hx gastric pacemaker Gastroparesis problem compounded by chronic pain on narcotic regimen. -Received IV fluids -creatinine downtrended from 2.3 on presentation to 1.78 Bilateral lower extremity wounds Wound culture Start doxycycline 100 mg p.o. twice daily Monitor Hypertension, elevated secondary discomfort -blood pressure controlled on 11/18/18 -continue metoprolol -resume lisinopril Type 2 diabetes mellitus with jail current use of insulin, uncontrolled -suboptimal control as of recent outpatient hemoglobin A1c of 8.9 last May 2018 -continue insulin -diabetic diet -request pharmacy glycemic control consult chronic anemia NSCLC stage III, status post surgery, incomplete chemotherapy secondary to intolerance, Past tobacco use Seizure prophylaxis -continue home dose Keppra DVT prophylaxis. SCDs, encourage ambulation Full code Disposition pending Work-up for acute gastroparesis flare up in progress Patient usually lives at home patient family Subjective Follow-up for intractable vomiting Seen resting in bed, comfortable, nondistressed States he had about 7 episodes of vomiting today, nonbloody Denies abdominal pain No fever or chills, reports a nonhealing wound since last week Denies other symptoms Review of Systems Review of Systems: All systems reviewed & are unremarkable except as noted in HPI & below Physical Exam Physical Exam: General- oriented x 3, not in distress, speaks in sentences with no effort or accessory muscle use Eyes- anicteric Neck- no JVD Lungs- clear breath sounds bilaterally, no rales/wheezes Heart- normal rate, regular rhythm; no murmurs Abdomen- normal bowel sounds, nondistended, soft, nontender Extremities- no pretibial edema, no calf tenderness Positive small open wounds on bilateral anterior legs, with scant white discharge, surrounding erythema Neuro- alert, oriented x 3; no gross focal neurologic deficits Skin- warm & dry Results & Data Vital Signs (Past 12 Hours) Vital Signs Temp Pulse Pulse Resp BP BP Pulse Ox 11/19/18 15:33 36.5 C 77 18 135/79 100 11/19/18 07:55 36.6 C 77 18 116/76 98
[2018-11-19] MEDS: INSULIN GLARGINE SOLOSTAR 100 UNITS/ML 3 ML PEN SC SCH (21:01)
[2018-11-19] MEDS: DOXYCYCLINE HYCLATE 100 MG CAP PO SCH (21:15)
[2018-11-20] MEDS ORDERED: INSULIN ASPART 100 UNITS/ML 3 ML PEN SC SCH
[2018-11-20] MEDS: OXYCODONE HCL IR 5 MG TAB (IMMEDIATE RELEASE) PO PRN ×2 (03:14→23:44)
[2018-11-20] MEDS: INSULIN ASPART 100 UNITS/ML 3 ML PEN SC SCH ×5 (04:31→21:16)
[2018-11-20] MEDS: HYDROmorphone INJ 0.5 MG/0.5 ML SYR IV PRN ×2 (08:03→17:09)
[2018-11-20] MEDS: DOXYCYCLINE HYCLATE 100 MG CAP PO SCH ×2 (08:30→18:12)
[2018-11-20] MEDS: CHECK FENTANYL PATCH PLACEMENT SCH ×3 (08:30→23:48)
[2018-11-20] MEDS: METOPROLOL TARTRATE 25 MG TAB PO SCH ×2 (08:31→21:18)
[2018-11-20] MEDS: LISINOPRIL 40 MG TAB PO SCH (08:31)
[2018-11-20] MEDS: LINACLOTIDE 72 MCG CAPSULE PO SCH (08:33)
[2018-11-20] MEDS: MULTIVITAMIN TAB PO SCH (08:33)
[2018-11-20] MEDS: POLYETHYLENE (MIRALAX) 17 GM PACK PO SCH (08:33)
[2018-11-20] MEDS: GABAPENTIN 100 MG CAP PO SCH ×3 (08:33→21:18)
[2018-11-20] MEDS: levETIRAcetam 500 MG TAB PO SCH ×2 (08:33→21:18)
[2018-11-20] MEDS: PANTOprazole 40 MG TAB PO SCH (08:33)
[2018-11-20] MEDS: ASPIRIN 81 MG ECTAB PO SCH (08:33)
[2018-11-20] MEDS: DOCUSATE SODIUM/SENNA 50/8.6MG TAB PO SCH (08:34)
--- NOTE | 2018-11-20 09:42 | Gastrointestinal Consultation ---
Date of Consultation November 20, 2018 Assessment & Plan (1) Gastroparesis: 53 year old male with diabetic gastroparesis s/p gastric pacer maintained on gastroparesis diet and antiemetics presented w/ persistent N/V despite trial of emend, bowel rest NPO for EGD to rule out sinister pathology He does have history of gastric ulcer Would continue anti-emetics as ordered Would continue PPI Thank you for allowing us to participate in the care of this patient. Please call with any acute changes, questions or concerns. Please see addendum below with additional recommendation from my supervising physician. Supervising Physician Co-Signing Physician Notes I have personally seen and examined the patient with LINDSAY Rangel. Her note reflects my exam and findings. I agree with her impression and plan. I would increase PPI to 40 BID. Patient needs to follow up with providers who placed gastric pacemaker once discharged. Ilir Ballard M.D. History of Present Illness Reason for Consultation: N/V Requesting Physician: Joceline Attending Physician: Antonino Car MD History of Present Illness 53 year old male with hisotry of DM, autoimmune dysfunction, diabetic gastropa resis, s/p gastric pacemaker placement, s/p intrathecal pump for neuropathy, hx of pancreatitis, gastritis, HTN, hx of lung ca s/p SHAWN resection who presented to the ED for evaluation of abdominal pain, nausea and vomiting - GI consulted for persisted symptoms despite gastroparesis diet, trial of Emend and other anti-emetics. Pt notes that he was in his typical state of health. Recent was evaluated by physician he follows with for gastric pacer and notes recent adjustment. 1 day later developed abd pain and persistent nausea/vomiting. Denies any new medications, any increase of narcotics. Moving bowels. No black or bloody stools. No fever, chills, CP, SOB. EGD 2017: gastritis, gastric ulcer Colonoscopy 2018: 3 mm polyp in sigmoid colon, otherwise normal Allergies Allergy/AdvReac Type Severity Reaction Status Date / Time bee venom protein (honey bee) Allergy Mild SWELLING Verified 09/06/18 15:34 AT SITE, SOB Penicillins Allergy Unknown "SINCE Unverified 09/06/18 15:34 "-Amoxicillin metoclopramide AdvReac Unknown hallucinati Verified 09/06/18 15:34 ons Home Medications Home Medications Medication Instructions Recorded Confirmed Type Maryanne IrwinPen U-100 Insulin 15 unit SUBCUT HS 05/05/18 11/17/18 History Humalog U-100 Insulin 1 sliding scale dose SUBCUT UD 05/05/18 11/17/18 History acetaminophen [Acetaminophen Extra 1,000 mg PO Q6H PRN 05/05/18 11/17/18 History Strength] albuterol sulfate 2 puff INHALATION Q4H PRN 05/05/18 11/17/18 History aspirin [Aspirin Low Dose] 81 mg PO DAILY 05/05/18 11/17/18 History epinephrine [EpiPen] 0.3 mg IM Q3H PRN 05/05/18 11/17/18 History ferrous sulfate 325 mg PO DAILY 05/05/18 11/17/18 History gabapentin 300 mg PO TID 05/05/18 11/17/18 History levetiracetam [Keppra] 500 mg PO BID 05/05/18 11/17/18 History lisinopril 40 mg PO DAILY 05/05/18 11/17/18 History metoprolol tartrate 75 mg PO BID 05/05/18 11/17/18 History multivitamin 1 tab PO DAILY 05/05/18 11/17/18 History ondansetron HCl 8 mg PO Q8H PRN 05/05/18 11/17/18 History oxycodone 10 mg PO Q4H PRN 05/05/18 11/17/18 History pantoprazole 40 mg PO DAILY 05/05/18 11/17/18 History polyethylene glycol 3350 [Miralax] 17 g PO DAILY 05/05/18 11/17/18 History prochlorperazine maleate 10 mg PO Q6H PRN 05/05/18 11/17/18 History trimethobenzamide 300 mg PO TID PRN 05/05/18 11/17/18 History fentanyl 125 mcg TRANSDERMAL .Q2D/UD 11/17/18 11/17/18 History fentanyl 125 mcg TRANSDERMAL .Q2D/UD 11/17/18 11/17/18 History linaclotide [Linzess] 72 mcg PO DAILY 11/17/18 11/17/18 History Patient History Medical History Pneumonia Discharge planning issues DVT prophylaxis Nausea and vomiting IVAN (acute kidney injury) Acute hyponatremia Chest pain No current chest pain...related to reflux per patient Acute dyspnea Gastroparesis (Chronic) "s/p gastric stimulator" Hypertension (Chronic) Lung cancer (Chronic) "dx 01/2016; adenoCa SHAWN; + hilar nodes; s/p left upper lobectomy + chemo" On 08/05/16 16:31 Edie Mcfarland wrote "dx 01/2016; s/p L side lobectomy; currently undergoing chemo" Pneumonia (Resolved) Seizure disorder Diabetic peripheral neuropathy (Chronic) Diabetic autonomic neuropathy (Chronic) Chronic pain (Chronic) Intractable nausea and vomiting (Acute) Diabetes mellitus type 2, uncontrolled (Acute) Hypomagnesemia Orthostatic hypotension (Chronic) COPD (chronic obstructive pulmonary disease) Renal insufficiency Surgical History History of cholecystectomy (Chronic) History of tonsillectomy and adenoidectomy (Chronic) Hx of total knee arthroplasty (Chronic) S/P lobectomy of lung (Chronic) "left upper lobectomy for adenoCa" On 08/05/16 16:30 Edie Mcfarlnad wrote "L side @ [facility] 05/25/16" H/O esophagogastroduodenoscopy (Chronic) "01/26/2015- [place] Grade B reflux esophagitis, gastritis; Dr. Major" H/O colonoscopy (Chronic) " 04/22/2013- Mildly congested and erythematous mucosa in the ascending colon. One 1 mm polyp in the ascending colon resected. One benign appearing 1 mm polyp in the rectum resected. Internal hemorrhoids; Dr. 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 Care Required: No Beliefs That Will Affect Care: None Current Living Situation: Alone Other Information That Helps Us Care for You: No Feels Safe at Home: Yes Safety Concerns: Feels Safe At This Time Smoking Status: Former smoker Tobacco Type: smokeless tobacco Do You Dip or Chew Tobacco: Yes Second Hand Exposure: No Hx Alcohol Use: Yes Hx Substance Use: Yes substance use type: prescription drug Substance Use Type Other:: fentanyl patch 24hrs a day-refused removal of 2 patches Last Used Substance Other:: current patches intact Review of Systems Constitutional: no fever, no chills and no fatigue Respiratory: no cough, no dyspnea and no wheezing Cardiovascular: no chest pain, no dyspnea and no palpitations Gastrointestinal: + abdominal pain, + heartburn, + nausea and + vomiting; no belching, no early satiety, no coffee ground emesis, no hematemesis, no pain with swallowing, no dysphagia, no change in bowel habits, no diarrhea/loose stools, no blood in stools and no melena Physical Exam Constitutional: WD/WN, vitals as above Neck: trachea midline Respiratory: normal respiratory effort, lungs clear to auscultation Cardiovascular: Rate/Rhythm: regular rate and regular rhythm Gastrointestinal (Abdomen): Inspection/Auscultation: normal bowel sounds Percussion/Palpation: + abdomen tender and abdomen soft; no guarding, abdomen not rigid, no abdominal mass and no ascites Skin: no rashes, warm and dry Results & Data Vital Signs (Past 12 Hours) Vital Signs Temp Pulse Resp BP Pulse Ox 11/20/18 08:26 37.5 C 94 H 16 104/65 92 11/20/18 07:17 37.6 C H 104 H 18 92/63 L 94 11/19/18 23:36 36.7 C 81 18 123/64 98 Laboratory Results 11/20/18 11/20/18 11/19/18 Range/Units 08:01 04:13 23:16 POC Glucose 120 H 139 H 257 H (70-99) 11/19/18 11/19/18 11/19/18 Range/Units 20:55 17:23 16:06 POC Glucose 171 H 241 H 88 (70-99) 11/19/18 11/19/18 11/19/18 Range/Units 15:43 15:41 15:27 POC Glucose 54 L* 50 L* 52 L* (70-99) 11/19/18 11/19/18 Range/Units 15:25 12:10 POC Glucose 46 L* 183 H (70-99)
--- NOTE | 2018-11-20 11:17 | Anesthesiology Consultation ---
Date of Service November 20, 2018 Assessment & Plan Chart Review Chart Review: Acceptable Risk for Surgery ASA ASA3 Proposed Anesthesia Anesthesia Type: MAC Risk / Benefits Reviewed With: PT / POA / Parent / Guardian, Accepts Plan and Informed Consent Obtained History Surgery Operation Date: 11/20/18 10:15 Proposed Procedures p Esophagogastroduodenoscopy Dr Ballard - Ilir Ballard Height/Weight Height: 5 ft 8 in Weight: 77.27 kg Allergies Allergy/AdvReac Type Severity Reaction Status Date / Time bee venom protein (honey bee) Allergy Mild SWELLING Verified 09/06/18 15:34 AT SITE, SOB Penicillins Allergy Unknown "SINCE Unverified 09/06/18 15:34 "-Amoxicillin metoclopramide AdvReac Unknown hallucinati Verified 09/06/18 15:34 ons Medications Home Medications Medication Instructions Recorded Confirmed Last Taken Basaglar KwikPen U-100 Insulin 15 unit SUBCUT HS 05/05/18 11/17/18 09/05/18 Humalog U-100 Insulin 1 sliding scale dose SUBCUT UD 05/05/18 11/17/18 09/06/18 10:00 acetaminophen [Acetaminophen Extra 1,000 mg PO Q6H PRN 05/05/18 11/17/18 04/28/18 Strength] albuterol sulfate 2 puff INHALATION Q4H PRN 05/05/18 11/17/18 04/28/18 aspirin [Aspirin Low Dose] 81 mg PO DAILY 05/05/18 11/17/18 09/06/18 epinephrine [EpiPen] 0.3 mg IM Q3H PRN 05/05/18 11/17/18 04/28/18 ferrous sulfate 325 mg PO DAILY 05/05/18 11/17/18 09/06/18 gabapentin 300 mg PO TID 05/05/18 11/17/18 09/06/18 levetiracetam [Keppra] 500 mg PO BID 05/05/18 11/17/18 09/06/18 lisinopril 40 mg PO DAILY 05/05/18 11/17/18 09/06/18 metoprolol tartrate 75 mg PO BID 05/05/18 11/17/18 09/06/18 multivitamin 1 tab PO DAILY 05/05/18 11/17/18 09/06/18 ondansetron HCl 8 mg PO Q8H PRN 05/05/18 11/17/18 09/06/18 oxycodone 10 mg PO Q4H PRN 05/05/18 11/17/18 04/28/18 pantoprazole 40 mg PO DAILY 05/05/18 11/17/18 09/06/18 polyethylene glycol 3350 [Miralax] 17 g PO DAILY 05/05/18 11/17/18 04/28/18 prochlorperazine maleate 10 mg PO Q6H PRN 05/05/18 11/17/18 09/06/18 trimethobenzamide 300 mg PO TID PRN 05/05/18 11/17/18 09/06/18 fentanyl 125 mcg TRANSDERMAL .Q2D/UD 11/17/18 11/17/18 11/17/18 R ARM fentanyl 125 mcg TRANSDERMAL .Q2D/UD 11/17/18 11/17/18 11/17/18 R ARM linaclotide [Linzess] 72 mcg PO DAILY 11/17/18 11/17/18 Unknown Active Medications Generic Name Dose Route Start Last Admin Trade Name Freq PRN Reason Stop Dose Admin Aspirin 81 mg 11/18/18 09:00 11/20/18 08:33 Ecotrin Ectab PO 12/18/18 08:59 Not Given DAILY [facility] Doxycycline Hyclate 100 mg 11/19/18 18:30 11/20/18 08:30 Vibramycin PO 11/29/18 18:29 Not Given DAILY@0600,1800 [facility] Gabapentin 200 mg 11/18/18 09:00 11/20/18 08:33 Neurontin PO 12/18/18 08:59 Not Given TID [facility] Hydromorphone HCl 0.25 mg 11/18/18 06:50 11/20/18 08:03 Dilaudid IV 12/02/18 03:03 0.25 mg Q8H PRN Administration Pain Promethazine HCl 12.5 mg/ 50.5 mls @ 202 mls/hr 11/18/18 03:04 11/19/18 20:33 Sodium Chloride IV 12/18/18 03:03 Infused Q6H PRN Infusion Nausea And Vomiting Insulin Aspart 0 units 11/20/18 04:00 11/20/18 08:33 Novolog Flexpen SC 12/20/18 03:59 Not Given Q4 DAMIR Insulin Glargine 0 units 11/19/18 21:00 11/19/18 21:01 Lantus Solostar Pen SC 12/19/18 20:59 10 units HS DAMIR Administration Protocol Levetiracetam 500 mg 11/18/18 09:00 11/20/18 08:33 Keppra PO 12/18/18 08:59 500 mg BID DAMIR Administration Linaclotide 72 mcg 11/18/18 09:00 11/20/18 08:33 Linzess PO 12/18/18 08:59 Not Given DAILY DAMIR Lisinopril 40 mg 11/18/18 19:15 11/20/18 08:31 Zestril PO 12/18/18 19:14 40 mg QAM DAMIR Administration Metoprolol Tartrate 75 mg 11/18/18 00:45 11/20/18 08:31 Lopressor PO 12/18/18 00:44 75 mg BID DAMIR Administration Miscellaneous 15 - 30 gm 11/18/18 03:04 11/19/18 15:51 Carbohydrates For Hypoglycemia PO 12/18/18 03:03 30 gm UD PRN Administration Hypoglycemia Treatment Miscellaneous 1 ea 11/19/18 00:00 11/20/18 08:30 Fentanyl Patch Check Placement N/A 11/21/18 16:01 1 ea QS DAMIR Administration Multivitamins 1 tab 11/18/18 09:00 11/20/18 08:33 Multivitamin Tab PO 12/18/18 08:59 Not Given DAILY DAMIR Oxycodone HCl 10 mg 11/18/18 03:04 11/20/18 03:14 Roxicodone Immediate Rel PO 12/02/18 03:03 10 mg Q4H PRN Administration Pain Pantoprazole Sodium 40 mg 11/18/18 09:00 11/20/18 08:33 Protonix PO 12/18/18 08:59 Not Given DAILY DAMIR Polyethylene Glycol 17 gm 11/18/18 09:00 11/20/18 08:33 Miralax Powder Packet PO 12/18/18 08:59 Not Given DAILY DAMIR Senna/Docusate Sodium 1 tab 11/18/18 09:00 11/20/18 08:34 Senokot S PO 12/18/18 08:59 Not Given QAM DAMIR NPO Date Last Intake of Fluids: 11/19/18 Time Last Intake of Fluids: 23:59 Date Last Intake of Solids: 11/19/18 Time Last Intake of Solids: 23:59 Past Medical History Medical History Pneumonia Discharge planning issues DVT prophylaxis Nausea and vomiting IVAN (acute kidney injury) Acute hyponatremia Chest pain No current chest pain...related to reflux per patient Acute dyspnea Gastroparesis (Chronic) "s/p gastric stimulator" Hypertension (Chronic) Lung cancer (Chronic) "dx 01/2016; adenoCa SHAWN; + hilar nodes; s/p left upper lobectomy + chemo" On 08/05/16 16:31 Edie Mcfarland wrote "dx 01/2016; s/p L side lobectomy; currently undergoing chemo" Pneumonia (Resolved) Seizure disorder Diabetic peripheral neuropathy (Chronic) Diabetic autonomic neuropathy (Chronic) Chronic pain (Chronic) Intractable nausea and vomiting (Acute) Diabetes mellitus type 2, uncontrolled (Acute) Hypomagnesemia Orthostatic hypotension (Chronic) COPD (chronic obstructive pulmonary disease) Renal insufficiency Exercise / Class Metabolic Activity III < 4 Walking/Shop/Light housework Past Family History Family History Other Family history non-contributory Past Surgical History Surgical History History of cholecystectomy (Chronic) History of tonsillectomy and adenoidectomy (Chronic) Hx of total knee arthroplasty (Chronic) S/P lobectomy of lung (Chronic) "left upper lobectomy for adenoCa" On 08/05/16 16:30 Edie Mcfarland wrote "L side @ [facility] 05/25/16" H/O esophagogastroduodenoscopy (Chronic) "01/26/2015- [place] Grade B reflux esophagitis, gastritis; Dr. Major" H/O colonoscopy (Chronic) " 04/22/2013- Mildly congested and erythematous mucosa in the ascending colon. One 1 mm polyp in the ascending colon resected. One benign appearing 1 mm polyp in the rectum resected. Internal hemorrhoids; Dr. Demarco" Status post insertion of intrathecal pump (Resolved) explanted Past Anesthesia History No Hx of Anesthesia Complications and No Family Hx of Anesthesia Complications History of PONV No Hx of PONV and No Hx of Motion Sickness Social History Smoking Status: Former smoker tobacco type: smokeless tobacco Do You Dip or Chew Tobacco: Yes Hx Alcohol Use: Yes alcohol intake frequency: holidays/special occasions only Hx Substance Use: Yes substance use type: prescription drug Substance Use Type Other:: fentanyl patch 24hrs a day-refused removal of 2 patches Last Used Substance Other:: current patches intact Physical Exam Vital Signs Last Vital Signs Temp 37.2 C 11/20/18 11:12 Pulse 79 11/20/18 11:12 Resp 18 11/20/18 11:12 BP 122/74 11/20/18 11:12 Pulse Ox 99 11/20/18 11:12 ENMT Mouth: + dental restorations; no dentition abnormality Thyromental Distance: > or= 3.5 Finger Breadths Mallampati Class: II Neck normal visual inspection Respiratory normal respiratory effort Auscultation: lungs clear to auscultation bilaterally Cardiovascular Rate/Rhythm: regular rate and regular rhythm Testing Laboratory Results 11/19/18 08:01 11/19/18 08:01 PT 10.4 Seconds (9.0-12.0) 11/17/18 22:37 INR 1.0 (0.9-1.1) 11/17/18 22:37 APTT 23.6 Seconds (21.0-31.0) 11/17/18 22:37 Hemoglobin A1c 12.5 % (4.5-5.6) H 11/17/18 21:13 Urine Color Yellow 11/18/18 13:30 Urine Appearance Clear (Clear) 11/18/18 13:30 Urine pH 5.5 (4.5-7.5) 11/18/18 13:30 Ur Specific [place] 1.027 (1.000-1.030) 11/18/18 13:30 Urine Protein 3+ (Negative) H 11/18/18 13:30 Urine Glucose (UA) 3+ (Negative) H 11/18/18 13:30 Urine Ketones Negative (Negative) 11/18/18 13:30 Urine Nitrite Negative (Negative) 11/18/18 13:30 Ur Leukocyte Esterase Negative (Negative) 11/18/18 13:30 Urine WBC (Auto) 1-5 /hpf (0-5) 11/18/18 13:30 Urine RBC (Auto) 0-4 /hpf (0-4) 11/18/18 13:30 U Hyaline Cast (Auto) 5-10 /lpf (0-5) H 11/18/18 13:30 U Epithel Cells (Auto) >30 /lpf (0-5) H 11/18/18 13:30 Urine Bacteria (Auto) Negative (Negative) 11/18/18 13:30 11/19/18 19:40 Gram Stain - Final Leg,Left 11/20/18 11/20/18 11/19/18 08:01 04:13 23:16 POC Glucose 120 H 139 H 257 H
--- NOTE | 2018-11-20 11:29 | History & Physical Report ---
Date of Service November 20, 2018 Assessment & Plan (1) Nausea and vomiting: stable for EGD History of Present Illness Chief Complaint: nausea and vomiting Primary Care Provider: Lionel Lutz, pt with N/V for EGD Allergies Allergy/AdvReac Type Severity Reaction Status Date / Time bee venom protein (honey bee) Allergy Mild SWELLING Verified 09/06/18 15:34 AT SITE, SOB Penicillins Allergy Unknown "SINCE Unverified 09/06/18 15:34 "-Amoxicillin metoclopramide AdvReac Unknown hallucinati Verified 09/06/18 15:34 ons Home Medications Home Medications Medication Instructions Recorded Confirmed Type Basaglar KwikPen U-100 Insulin 15 unit SUBCUT HS 05/05/18 11/17/18 History Humalog U-100 Insulin 1 sliding scale dose SUBCUT UD 05/05/18 11/17/18 History acetaminophen [Acetaminophen Extra 1,000 mg PO Q6H PRN 05/05/18 11/17/18 History Strength] albuterol sulfate 2 puff INHALATION Q4H PRN 05/05/18 11/17/18 History aspirin [Aspirin Low Dose] 81 mg PO DAILY 05/05/18 11/17/18 History epinephrine [EpiPen] 0.3 mg IM Q3H PRN 05/05/18 11/17/18 History ferrous sulfate 325 mg PO DAILY 05/05/18 11/17/18 History gabapentin 300 mg PO TID 05/05/18 11/17/18 History levetiracetam [Keppra] 500 mg PO BID 05/05/18 11/17/18 History lisinopril 40 mg PO DAILY 05/05/18 11/17/18 History metoprolol tartrate 75 mg PO BID 05/05/18 11/17/18 History multivitamin 1 tab PO DAILY 05/05/18 11/17/18 History ondansetron HCl 8 mg PO Q8H PRN 05/05/18 11/17/18 History oxycodone 10 mg PO Q4H PRN 05/05/18 11/17/18 History pantoprazole 40 mg PO DAILY 05/05/18 11/17/18 History polyethylene glycol 3350 [Miralax] 17 g PO DAILY 05/05/18 11/17/18 History prochlorperazine maleate 10 mg PO Q6H PRN 05/05/18 11/17/18 History trimethobenzamide 300 mg PO TID PRN 05/05/18 11/17/18 History fentanyl 125 mcg TRANSDERMAL .Q2D/UD 11/17/18 11/17/18 History fentanyl 125 mcg TRANSDERMAL .Q2D/UD 11/17/18 11/17/18 History linaclotide [Linzess] 72 mcg PO DAILY 11/17/18 11/17/18 History Past Med/Surg History Medical History Pneumonia Discharge planning issues DVT prophylaxis Nausea and vomiting IVAN (acute kidney injury) Acute hyponatremia Chest pain No current chest pain...related to reflux per patient Acute dyspnea Gastroparesis (Chronic) "s/p gastric stimulator" Hypertension (Chronic) Lung cancer (Chronic) "dx 01/2016; adenoCa SHAWN; + hilar nodes; s/p left upper lobectomy + chemo" On 08/05/16 16:31 Edie Mcfarland wrote "dx 01/2016; s/p L side lobectomy; currently undergoing chemo" Pneumonia (Resolved) Seizure disorder Diabetic peripheral neuropathy (Chronic) Diabetic autonomic neuropathy (Chronic) Chronic pain (Chronic) Intractable nausea and vomiting (Acute) Diabetes mellitus type 2, uncontrolled (Acute) Hypomagnesemia Orthostatic hypotension (Chronic) COPD (chronic obstructive pulmonary disease) Renal insufficiency Surgical History History of cholecystectomy (Chronic) History of tonsillectomy and adenoidectomy (Chronic) Hx of total knee arthroplasty (Chronic) S/P lobectomy of lung (Chronic) "left upper lobectomy for adenoCa" On 08/05/16 16:30 Edie Mcfarland wrote "L side @ [facility] 05/25/16" H/O esophagogastroduodenoscopy (Chronic) "01/26/2015- LA Grade B reflux esophagitis, gastritis; Dr. Major" H/O colonoscopy (Chronic) " 04/22/2013- Mildly congested and erythematous mucosa in the ascending colon. One 1 mm polyp in the ascending colon resected. One benign appearing 1 mm polyp in the rectum resected. Internal hemorrhoids; Dr. 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 Beliefs That Will Affect Care: None Current Living Situation: Alone Other Information That Helps Us Care for You: No Feels Safe at Home: Yes Safety Concerns: Feels Safe At This Time Smoking Status: Former smoker Tobacco Type: smokeless tobacco Do You Dip or Chew Tobacco: Yes Second Hand Exposure: No Hx Alcohol Use: Yes Hx Substance Use: Yes substance use type: prescription drug Substance Use Type Other:: fentanyl patch 24hrs a day-refused removal of 2 patches Last Used Substance Other:: current patches intact Physical Exam Constitutional: WD/WN, vitals as above Respiratory: normal respiratory effort, lungs clear to auscultation Cardiovascular: RRR, no murmur, no edema Gastrointestinal (Abdomen): normal bowel sounds, soft, nontender, no hepatosplenomegaly Results & Data Vital Signs (Past 12 Hours) Vital Signs Temp Pulse Resp BP Pulse Ox 11/20/18 11:12 37.2 C 79 18 122/74 99 11/20/18 08:26 37.5 C 94 H 16 104/65 92 11/20/18 07:17 37.6 C H 104 H 18 92/63 L 94 11/19/18 23:36 36.7 C 81 18 123/64 98
[2018-11-20] MEDS ORDERED: BENZOCAIN/TETRACA/BUTAM SPRAY 200 APPLN/20 GM SPRY EXT ONE (11:35)
[2018-11-20] MEDS ORDERED: KETAMINE HCL INJ 50 MG/ML 10 ML VIAL ONE (11:36)
[2018-11-20] MEDS ORDERED: MIDAZOLAM HCL 1 MG/ML 2ML VIAL ONE (11:37)
[2018-11-20] MEDS ORDERED: PROPOFOL IV EMULSION 10 MG/ML 20 ML VIAL IV ONE (11:54)
--- NOTE | 2018-11-20 12:10 | Anesthesiology Progress Note ---
Date of Service November 20, 2018 Anesthesia Post Procedure Vital Signs Vital Signs: Temp Pulse Pulse Resp BP Pulse Ox 11/20/18 12:04 79 16 124/77 96 11/20/18 11:59 78 18 143/83 H 97 11/20/18 11:12 37.2 C 79 18 122/74 99 11/20/18 08:26 37.5 C 94 H 16 104/65 92 11/20/18 07:17 37.6 C H 104 H 18 92/63 L 94 11/19/18 23:36 36.7 C 81 18 123/64 98 11/19/18 21:19 85 164/97 H 11/19/18 15:33 36.5 C 77 18 135/79 100 Pain Intensity Generalized: Pain Intensity: 8 Transfer of Care Handoff Completed per policy Notes Mental Status: alert / awake / arousable and participated in evaluation Nausea / Vomiting: adequately controlled Pain: adequately controlled Airway Patency, RR, SpO2: stable & adequate BP & HR: stable & adequate Hydration State: stable & adequate Anesthetic Complications: no major complications apparent and Pt Satisfied with anesthetic care
--- NOTE | 2018-11-20 12:12 | GI REPORT ---
Patient Name: Jeff Hamilton Procedure Date: 11/20/2018 11:17 AM Date of : 1965 Admit Type: Inpatient Age: 53 Gender: Male Attending MD: Ilir Ballard MD Procedure: Upper GI endoscopy Providers: Ilir Ballard MD Referring MD: Antonino Car Indications: Epigastric abdominal pain, Nausea with vomiting Medicines: See the Anesthesia note for documentation of the administered medications Complications: No immediate complications. Estimated Blood Loss: Estimated blood loss: none. Procedure: Pre-Anesthesia Assessment: - Prior to the procedure, a History and Physical was performed, and patient medications, allergies and sensitivities were reviewed. The patient's tolerance of previous anesthesia was reviewed. - The risks and benefits of the procedure and the sedation options and risks were discussed with the patient. All questions were answered and informed consent was obtained. - Patient identification and proposed procedure were verified prior to the procedure by the physician and the nurse. The procedure was verified in the pre-procedure area. - Pre-procedure physical examination revealed no contraindications to sedation. - After reviewing the risks and benefits, the patient was deemed in satisfactory condition to undergo the procedure. After obtaining informed consent, the endoscope was passed under direct vision. Throughout the procedure, the patient's blood pressure, pulse, and oxygen saturations were monitored continuously. The Endoscope was introduced through the mouth, and advanced to the third part of duodenum. The upper GI endoscopy was accomplished without difficulty. The patient tolerated the procedure well. Findings: The esophagus was normal. Non-bleeding superficial gastric ulcers with no stigmata of bleeding were found in the gastric body associated with implanted gastric pacemaker. The examined duodenum was normal. The cardia and gastric fundus were normal on retroflexion. Impression: - Normal esophagus. - No esophagitis seen. - Non-bleeding gastric ulcers with no stigmata of bleeding associated with gastric pacemaker. - No bleeding seen. - Normal examined duodenum. - No specimens collected. Recommendation: - [facility]. - Increase PPI to BID. Olga Barr MD 11/20/2018 12:11:39 PM This report has been signed electronically. Note Initiated On: 11/20/2018 11:17 AM Number of Addenda: 0 I attest to the content of the Intraoperative Record and orders documented therein, exceptions below {[id number]}
[2018-11-20] MEDS ORDERED: Nursing to Pharmacy Communication ONE (15:26)
[2018-11-20] MEDS: PROMETHAZINE HCL 12.5 MG in SODIUM CHLORIDE 0.9% 50 ML IV PRN (18:12)
--- NOTE | 2018-11-20 19:31 | Hospitalist Progress Note ---
Date of Service November 20, 2018 Assessment & Plan (1) Gastroparesis: With possible acute flareup Received Emend during initial admission Nausea and emesis resolving Post EGD November 20, 2018: Unremarkable except for nonbleeding gastric ulcers associated with gastric pacemaker We will advance diet to gastroparesis diet today Continue PRN antiemetics (2) Renal failure (ARF), acute on chronic: Clinical dehydration secondary to intractable nausea, emesis secondary to gastroparesis flareup hx gastric pacemaker Gastroparesis problem compounded by chronic pain on narcotic regimen. -Received IV fluids -creatinine downtrended from 2.3 on presentation to 1.78 Bilateral lower extremity wounds Wound culture, staph aureus final C&S pending Wounds are improving Day #2 doxycycline 100 mg p.o. twice daily Monitor Hypertension, elevated secondary discomfort -blood pressure controlled on 11/18/18 -continue metoprolol -resumed lisinopril Type 2 diabetes mellitus with nursing home current use of insulin, uncontrolled -suboptimal control as of recent outpatient hemoglobin A1c of 8.9 last May 2018 -continue insulin -diabetic diet -requested pharmacy glycemic control consult chronic anemia NSCLC stage III, status post surgery, incomplete chemotherapy secondary to intolerance, Past tobacco use Seizure prophylaxis -continue home dose Keppra DVT prophylaxis. SCDs, encourage ambulation Full code Disposition Pending Evaluation and management of nausea/vomiting in progress Patient usually lives at home patient family Subjective Follow-up for acute flareup of gastroparesis Status post EGD, unremarkable except for nonbleeding gastric ulcers associated with gastric pacemaker No vomiting, nausea today Positive bowel movements, normal Requesting to advance diet Denies leg pain, fever or chills no other symptoms Review of Systems Review of Systems: All systems reviewed & are unremarkable except as noted in HPI & below Physical Exam Physical Exam: General- oriented x 3, not in distress, speaks in sentences with no effort or accessory muscle use Eyes- anicteric Neck- no JVD Lungs- clear BS bilaterally Heart- normal rate, regular rhythm; no murmurs Abdomen- normal bowel sounds, nondistended, soft, nontender Extremities- no pretibial edema, no calf tenderness Positive small wounds on the anterior lower leg, less erythema and drainage Neuro- alert, oriented x 3; no gross focal neurologic deficits Skin- warm & dry Results & Data Vital Signs (Past 12 Hours) Vital Signs Temp Pulse Pulse Resp BP Pulse Ox 11/20/18 19:17 36.7 C 85 18 124/73 96 11/20/18 16:08 36.7 C 76 18 164/80 H 99 11/20/18 14:52 36.7 C 74 18 101/61 99 11/20/18 13:49 37.1 C 74 18 109/70 99 11/20/18 13:20 37.0 C 73 16 114/73 98 11/20/18 12:50 36.8 C 77 15 109/77 96 11/20/18 12:36 73 16 110/68 97 11/20/18 12:26 75 16 112/70 94 11/20/18 12:18 78 16 124/74 95 11/20/18 12:10 78 16 119/77 94 11/20/18 12:04 79 16 124/77 96 11/20/18 11:59 78 18 143/83 H 97 11/20/18 11:12 37.2 C 79 18 122/74 99 11/20/18 08:26 37.5 C 94 H 16 104/65 92 Laboratory Results Laboratory Results - last 24 hr 11/19/18 11/19/18 11/20/18 20:55 23:16 04:13 POC Glucose 171 H 257 H 139 H 11/20/18 11/20/18 11/20/18 08:01 13:11 17:05 POC Glucose 120 H 82 194 H
[2018-11-20] MEDS: INSULIN GLARGINE SOLOSTAR 100 UNITS/ML 3 ML PEN SC SCH (21:17)
[2018-11-21] MEDS: PROMETHAZINE HCL 12.5 MG in SODIUM CHLORIDE 0.9% 50 ML IV PRN ×2 (00:09→08:39)
[2018-11-21] MEDS: HYDROmorphone INJ 0.5 MG/0.5 ML SYR IV PRN ×4 (02:15→23:46)
[2018-11-21] MEDS: OXYCODONE HCL IR 5 MG TAB (IMMEDIATE RELEASE) PO PRN ×2 (06:25→11:44)
[2018-11-21] MEDS: DOXYCYCLINE HYCLATE 100 MG CAP PO SCH ×2 (06:29→17:53)
[2018-11-21] MEDS: CHECK FENTANYL PATCH PLACEMENT SCH ×2 (08:17→16:49)
[2018-11-21] MEDS: levETIRAcetam 500 MG TAB PO SCH ×2 (08:54→21:02)
[2018-11-21] MEDS: LISINOPRIL 40 MG TAB PO SCH (08:54)
[2018-11-21] MEDS: POLYETHYLENE (MIRALAX) 17 GM PACK PO SCH (08:54)
[2018-11-21] MEDS: LINACLOTIDE 72 MCG CAPSULE PO SCH (08:54)
[2018-11-21] MEDS: DOCUSATE SODIUM/SENNA 50/8.6MG TAB PO SCH (08:54)
[2018-11-21] MEDS: MULTIVITAMIN TAB PO SCH (08:54)
[2018-11-21] MEDS: METOPROLOL TARTRATE 25 MG TAB PO SCH ×2 (08:54→21:02)
[2018-11-21] MEDS: PANTOprazole 40 MG TAB PO SCH (08:54)
[2018-11-21] MEDS: GABAPENTIN 100 MG CAP PO SCH ×3 (08:55→21:02)
[2018-11-21] MEDS: INSULIN ASPART 100 UNITS/ML 3 ML PEN SC SCH ×4 (08:58→21:02)
[2018-11-21] MEDS ORDERED: INSULIN GLARGINE SOLOSTAR 100 UNITS/ML 3 ML PEN SC ONE (09:00)
[2018-11-21] MEDS: ASPIRIN 81 MG ECTAB PO SCH (09:14)
--- NOTE | 2018-11-21 09:23 | Anesthesiology Progress Note ---
Date of Service November 21, 2018 Anesthesia Post Procedure Vital Signs Vital Signs: Temp Pulse Pulse Resp BP Pulse Ox 11/21/18 07:53 36.6 C 77 20 182/88 H 97 11/21/18 03:55 37 C 86 20 177/95 H 92 11/20/18 23:35 37.1 C 88 18 147/82 H 96 11/20/18 19:17 36.7 C 85 18 124/73 96 11/20/18 16:08 36.7 C 76 18 164/80 H 99 11/20/18 14:52 36.7 C 74 18 101/61 99 11/20/18 13:49 37.1 C 74 18 109/70 99 11/20/18 13:20 37.0 C 73 16 114/73 98 11/20/18 12:50 36.8 C 77 15 109/77 96 11/20/18 12:36 73 16 110/68 97 11/20/18 12:26 75 16 112/70 94 11/20/18 12:18 78 16 124/74 95 11/20/18 12:10 78 16 119/77 94 11/20/18 12:04 79 16 124/77 96 11/20/18 11:59 78 18 143/83 H 97 11/20/18 11:12 37.2 C 79 18 122/74 99 Notes Mental Status: alert / awake / arousable and participated in evaluation Nausea / Vomiting: adequately controlled Pain: adequately controlled Airway Patency, RR, SpO2: stable & adequate BP & HR: stable & adequate Hydration State: stable & adequate
--- NOTE | 2018-11-21 13:46 | Pharmacy Report ---
Pharmacy Glycemic Short Note 2 - Date of Service November 21, 2018 - Glycemic Short BSG Results (Last 24 hours): 11/20/18 11/20/18 11/20/18 13:11 17:05 20:48 POC Glucose 82 194 H 189 H 11/21/18 11/21/18 11/21/18 08:15 08:16 08:17 POC Glucose 371 H* 356 H* 407 H* 11/21/18 12:01 POC Glucose 75 OUTPATIENT ANTIDIABETIC REGIMEN: * Basaglar 15 unit HS, Humalog SSI * A1c 12.5% 11/17/18 ASSESSMENT: * Mr. Hamilton received 23 units of insulin yesterday with adequate control, 12 units were basal * Patient was NPO yesterday AM and transitioned to T2DM diet with dinner and did see an increase in BSGs with this change * Patient's AM glucose significantly elevated this morning- per nurse the patient stated he was eating popsicles, therefore uncertain of true fasting this AM, did give small 3 units dose of lantus this AM to make up patient's home dose of 15 units * Tightened carb ratio and correction for breakfast, lunch BSG 75, loosened back up for lunch PLAN FOR INPATIENT GLYCEMIC CONTROL: * Hold outpatient oral diabetes medications * Basal insulin * Lantus scale for PM * 7 units BSG <120 * 10 units BSG 120-180 * 12 units BSG >180 * Bolus insulin * NovoLog per scale ACHS or Q6hrs while NPO * Goal Range: Low 140 mg/dL - High 180 mg/dL * Correction Factor: 35 mg/dL/unit * Nutritional / Prandial insulin per carb ratio of 1 unit per 15 grams CHO consumed PLAN FOR DISCHARGE: * Patient's outpatient A1c indicates poor control in the outpatient setting. Patient must be evaluated for compliance and close follow-up with outpatient provider to titrate insulin doses.
[2018-11-21] MEDS ORDERED: [UNRECOGNIZED DRUG - REMARK] SCH (18:29)
[2018-11-21] MEDS ORDERED: [UNRECOGNIZED DRUG - REMARK] SCH (18:29)
[2018-11-21] MEDS ORDERED: fentaNYL 25 MCG/HR TDSY TD SCH (18:30)
[2018-11-21] MEDS ORDERED: fentaNYL 100 MCG/HR TDSY TD SCH (18:30)
[2018-11-21] MEDS: INSULIN GLARGINE SOLOSTAR 100 UNITS/ML 3 ML PEN SC SCH (21:04)
--- NOTE | 2018-11-21 22:40 | Hospitalist Progress Note ---
Date of Service November 21, 2018 Assessment & Plan (1) Gastroparesis: With possible acute flareup Received Emend during initial admission Nausea and emesis continues to improve s/Post EGD November 20, 2018: Unremarkable except for nonbleeding gastric ulcers associated with gastric pacemaker advanced diet to gastroparesis diet seems to be tolerating better Continue PRN antiemetics (2) Renal failure (ARF), acute on chronic: Clinical dehydration secondary to intractable nausea, emesis secondary to gastroparesis flareup hx gastric pacemaker Gastroparesis problem compounded by chronic pain on narcotic regimen. -Received IV fluids -creatinine downtrended from 2.3 on presentation to 1.78 Bilateral lower extremity wounds Wound culture, MSSA Wounds are improving Day #2 doxycycline 100 mg p.o. twice daily--> change to augmentin Monitor Hypertension, elevated secondary discomfort -blood pressure monitoring -continue metoprolol -resumed lisinopril Type 2 diabetes mellitus with skilled nursing current use of insulin, uncontrolled -suboptimal control as of recent outpatient hemoglobin A1c of 8.9 last May 2018 -continue insulin -diabetic diet -requested pharmacy glycemic control consult chronic anemia NSCLC stage III, status post surgery, incomplete chemotherapy secondary to intolerance, Past tobacco use Seizure prophylaxis -continue home dose Keppra DVT prophylaxis. SCDs, encourage ambulation Full code Disposition Pending Evaluation and management of nausea/vomiting in progress Patient usually lives at home patient family Subjective ff up for gastroparesis flare up seen sitting up in bed said he vomited a few times again today tolerating diet more though no abdominal pain reports chronic generalized pain- more on the extremities no other symptoms Review of Systems Review of Systems: All systems reviewed & are unremarkable except as noted in HPI & below Physical Exam Physical Exam: General- oriented x 3, not in distress, speaks in sentences with no effort or accessory muscle use Eyes- anicteric Neck- no JVD Lungs- clear BS BL Heart- normal rate, regular rhythm; no murmurs Abdomen- normal bowel sounds, nondistended, soft, nontender Extremities- no pretibial edema, no calf tenderness wounds on the anterior [place]- healing, no active discharge Neuro- alert, oriented x 3; no gross focal neurologic deficits Skin- warm & dry Results & Data Vital Signs (Past 12 Hours) Vital Signs Temp Pulse Pulse Resp BP Pulse Ox 11/21/18 15:06 36.9 C 70 18 151/78 H 100 11/21/18 11:52 36.8 C 77 20 120/78 100 Laboratory Results Laboratory Results - last 24 hr 11/21/18 11/21/18 11/21/18 08:15 08:16 08:17 POC Glucose 371 H* 356 H* 407 H* 11/21/18 11/21/18 11/21/18 12:01 17:08 20:35 POC Glucose 75 209 H 253 H
[2018-11-21] MEDS: CHECK FENTANYL 25 MCG SCH (23:40)
[2018-11-21] MEDS: CHECK FENTANYL SCH (23:40)
[2018-11-22] MEDS ORDERED: HydrALAZINE HCL 20 MG/ML VIAL IV PRN (00:43)
[2018-11-22] MEDS ORDERED: HydrALAZINE HCL 20 MG/ML VIAL ONE (00:51)
[2018-11-22] MEDS: DOXYCYCLINE HYCLATE 100 MG CAP PO SCH (05:44)
[2018-11-22] MEDS: HYDROmorphone INJ 0.5 MG/0.5 ML SYR IV PRN (07:47)
[2018-11-22] MEDS: CHECK FENTANYL 25 MCG SCH ×2 (07:48→15:42)
[2018-11-22] MEDS: CHECK FENTANYL SCH ×2 (07:48→15:42)
[2018-11-22] MEDS: INSULIN ASPART 100 UNITS/ML 3 ML PEN SC SCH ×2 (08:51→12:55)
[2018-11-22] MEDS: MULTIVITAMIN TAB PO SCH (08:54)
[2018-11-22] MEDS: METOPROLOL TARTRATE 25 MG TAB PO SCH (08:54)
[2018-11-22] MEDS: PANTOprazole 40 MG TAB PO SCH (08:54)
[2018-11-22] MEDS: levETIRAcetam 500 MG TAB PO SCH (08:54)
[2018-11-22] MEDS: ASPIRIN 81 MG ECTAB PO SCH (08:54)
[2018-11-22] MEDS: POLYETHYLENE (MIRALAX) 17 GM PACK PO SCH (08:55)
[2018-11-22] MEDS: LINACLOTIDE 72 MCG CAPSULE PO SCH (08:55)
[2018-11-22] MEDS: LISINOPRIL 40 MG TAB PO SCH (08:55)
[2018-11-22] MEDS: GABAPENTIN 100 MG CAP PO SCH ×2 (08:56→13:02)
[2018-11-22] MEDS: DOCUSATE SODIUM/SENNA 50/8.6MG TAB PO SCH (08:56)
--- NOTE | 2018-11-22 12:45 | Pharmacy Report ---
Pharmacy Glycemic Short Note 2 - Date of Service November 22, 2018 - Glycemic Short BSG Results (Last 24 hours): 11/21/18 11/21/18 11/22/18 17:08 20:35 08:11 POC Glucose 209 H 253 H 423 H* 11/22/18 11/22/18 11/22/18 08:12 12:14 12:15 POC Glucose 420 H* 308 H* 259 H 11/22/18 12:18 POC Glucose 266 H OUTPATIENT ANTIDIABETIC REGIMEN: * Basaglar 15 unit HS, Humalog SSI * A1c 12.5% 11/17/18 ASSESSMENT: 11/22/18 * Blood sugar in the 400s this morning d/t eating crackers and popcicles overnight which were not treated with carb coverage, will increase Lantus slightly at HS as patient did have 15 total units basal yesterday. * Blood sugar still elevated prior to lunch, will tighten CR at this time, no other changes d/t previous hypoglycemia. 11/21/18 * Mr. Hamilton received 23 units of insulin yesterday with adequate control, 12 units were basal * Patient was NPO yesterday AM and transitioned to T2DM diet with dinner and did see an increase in BSGs with this change * Patient's AM glucose significantly elevated this morning- per nurse the patient stated he was eating popsicles, therefore uncertain of true fasting this AM, did give small 3 units dose of lantus this AM to make up patient's home dose of 15 units * Tightened carb ratio and correction for breakfast, lunch BSG 75, loosened back up for lunch PLAN FOR INPATIENT GLYCEMIC CONTROL: * Hold outpatient oral diabetes medications * Basal insulin - increase * Lantus scale for PM * 10 units BSG <120 * 12 units BSG 120-180 * 15 units BSG >180 * Bolus insulin * NovoLog per scale ACHS or Q6hrs while NPO * Goal Range: Low 140 mg/dL - High 180 mg/dL * Correction Factor: 35 mg/dL/unit * TIGHTEN: Nutritional / Prandial insulin per carb ratio of 1 unit per 12 grams CHO consumed PLAN FOR DISCHARGE: * Patient's outpatient A1c indicates poor control in the outpatient setting. Patient must be evaluated for compliance and close follow-up with outpatient provider to titrate insulin doses.
[2018-11-22] MEDS: PROMETHAZINE HCL 12.5 MG in SODIUM CHLORIDE 0.9% 50 ML IV PRN (14:09)
[2018-11-22] MEDS ORDERED: PROCHLORPERAZINE MALEATE 10 MG TAB PO STA (15:36)
--- NOTE | 2018-11-23 21:27 | Hospitalist Progress Note ---
Date of Service November 23, 2018 Assessment & Plan (1) Gastroparesis: With possible acute flareup Received Emend during initial admission GI consulted given PRN antiemetics, placed on clear liquids s/Post EGD November 20, 2018: Unremarkable except for nonbleeding gastric ulcers associated with gastric pacemaker Nausea and emesis improevd advanced diet to gastroparesis diet--> tolerated diet well advised to follow gastroparesis diet at home (2) Renal failure (ARF), acute on chronic: Clinical dehydration secondary to intractable nausea, emesis secondary to gastroparesis flareup hx gastric pacemaker Gastroparesis problem compounded by chronic pain on narcotic regimen. -Received IV fluids -creatinine downtrended from 2.3 on presentation to 1.78 Bilateral lower extremity wounds Wound culture (+) MSSA wounds healing better Day #2 doxycycline 100 mg p.o. twice daily--> change to Clindamycin 300mg TID x 7 days (allergic to Penicillin) ff up with PCP Hypertension -continue metoprolol and lisinopril -resumed lisinopril Type 2 diabetes mellitus with assisted current use of insulin, uncontrolled -suboptimal control as of recent outpatient hemoglobin A1c of 8.9 last May 2018 -continue insulin -diabetic diet -requested pharmacy glycemic control consult chronic anemia NSCLC stage III, status post surgery, incomplete chemotherapy secondary to intolerance, Past tobacco use Seizure prophylaxis -continue home dose Keppra DVT prophylaxis. SCDs, encourage ambulation Full code Disposition d/c home ff up with PCP in 1 week ff up with GI as scheduled Subjective delayed entry date of service 11/22/18 seen resting in bed, comfortable nausea much better no leg pain denies other symptoms states he is ready and would like to be discharged Review of Systems Review of Systems: All systems reviewed & are unremarkable except as noted in HPI & below Physical Exam Physical Exam: General- oriented x 3, not in distress, speaks in sentences with no effort or accessory muscle use Eyes- anicteric Neck- no JVD Lungs- clear BS BL no rales/wheezes Heart- normal rate, regular rhythm; no murmurs Abdomen- normal bowel sounds, nondistended, soft, nontender Extremities- no pretibial edema, no calf tenderness lower leg wounds healing well, no discharge Neuro- alert, oriented x 3; no gross focal neurologic deficits Skin- warm & dry
--- NOTE | 2018-11-23 21:36 | Discharge Summary ---
Date of Service November 23, 2018 Admission HPI Per Admitting Provider Chief Complaint: Nausea, vomiting Primary Care Provider: Lionel Lutz DO History obtained from patient and records. Medical history significant for NSCLC stage III, status post surgery, incomplete chemotherapy secondary to intolerance, gastroparesis status post gastric pacemaker, chronic pain on narcotics, hypertension, DM2 insulin requiring, past tobacco abuse, CRI baseline creatinine 1.5, chronic anemia (baseline hemoglobin 9-10), seizure disorder as per records, hx neurogenic bladder as per records. Recent confinement April 2018 for ARF, nausea vomiting. 1 day history of nausea vomiting symptoms similar to gastroparesis attack in the past as per patient. Patient later noted achy epigastric with no shortness of breath. No cough symptoms. Lightheaded bump as per patient from vomiting. Denies headache symptoms. Poor appetite. Usual every other day bowel movements. At the ER, BSG is noted be 400s, IV insulin given at the ER. Admission Exam Per Admitting Provider GENERAL: uncomfortable, looks older than stated age, no respiratory distress SKIN: Pallor , warm HEENT: Partial alopecia, pale palpebral conjunctivae, no ptosis, dry buccal mucosa NECK : Supple, no tenderness CHEST : CTA, no tenderness HEART : RRR, systolic murmur ABDOMEN: Some distention, epigastric tenderness EXTREMITIES : minimal LE swelling, no LE tenderness, no other conspicuous deformities noted NEUROLOGIC : Coherent, no facial asymmetry, no other gross focality Principal Diagnosis GASTROPARESIS FLARE UP Discharge Exam General- oriented x 3, not in distress, speaks in sentences with no effort or accessory muscle use Eyes- anicteric Neck- no JVD Lungs- clear BS BL no rales/wheezes Heart- normal rate, regular rhythm; no murmurs Abdomen- normal bowel sounds, nondistended, soft, nontender Extremities- no pretibial edema, no calf tenderness lower leg wounds healing well, no discharge Neuro- alert, oriented x 3; no gross focal neurologic deficits Skin- warm & dry Discharge Data Allergies Allergy/AdvReac Type Severity Reaction Status Date / Time bee venom protein (honey bee) Allergy Mild SWELLING Verified 09/06/18 15:34 AT SITE, SOB Penicillins Allergy Unknown "SINCE Unverified 09/06/18 15:34 "-Amoxicillin metoclopramide AdvReac Unknown hallucinati Verified 09/06/18 15:34 ons Consultations 11/17/18 23:35 ED Decision to Admit Stat 11/19/18 17:51 Consult Gastroenterology Routine Procedures Performed Operation Date: 11/20/18 10:15 Actual Procedures p Esophagogastroduodenoscopy - Ilir Ballard Attending MD: Ilir Ballard MD Procedure: Upper GI endoscopy Providers: Ilir Ballard MD Referring MD: Antonino Car Indications: Epigastric abdominal pain, Nausea with vomiting Medicines: See the Anesthesia note for documentation of the administered medications Complications: No immediate complications. Estimated Blood Loss: Estimated blood loss: none. Procedure: Pre-Anesthesia Assessment: - Prior to the procedure, a History and Physical was performed, and patient medications, allergies and sensitivities were reviewed. The patient's tolerance of previous anesthesia was reviewed. - The risks and benefits of the procedure and the sedation options and risks were discussed with the patient. All questions were answered and informed consent was obtained. - Patient identification and proposed procedure were verified prior to the procedure by the physician and the nurse. The procedure was verified in the pre-procedure area. - Pre-procedure physical examination revealed no contraindications to sedation. - After reviewing the risks and benefits, the patient was deemed in satisfactory condition to undergo the procedure. After obtaining informed consent, the endoscope was passed under direct vision. Throughout the procedure, the patient's blood pressure, pulse, and oxygen saturations were monitored continuously. The Endoscope was introduced through the mouth, and advanced to the third part of duodenum. The upper GI endoscopy was accomplished without difficulty. The patient tolerated the procedure well. Findings: The esophagus was normal. Non-bleeding superficial gastric ulcers with no stigmata of bleeding were found in the gastric body associated with implanted gastric pacemaker. The examined duodenum was normal. The cardia and gastric fundus were normal on retroflexion. Impression: - Normal esophagus. - No esophagitis seen. - Non-bleeding gastric ulcers with no stigmata of bleeding associated with gastric pacemaker. - No bleeding seen. - Normal examined duodenum. - No specimens collected. Recommendation: - [facility]. - Increase PPI to BID. Ilir Ballard M.D. Ilir Ballard MD 11/20/2018 12:11:39 PM Ordered Studies 11/18/18 01:16 CT abd pelvis wo con Urgent CT abd pelvis wo con CT DOSE: 338.72 mGy.cm HISTORY: Pain. Nausea. abd pain TECHNIQUE: Multiaxial CT images of the abdomen and pelvis were performed without contrast. A dose lowering technique was utilized adhering to the principles of ALARA. COMPARISON STUDY: 05/12/2017 FINDINGS: Lung bases are clear. Gastric pacemaker mid stomach. Prior cholecystectomy. Kidneys negative for hydronephrosis. Nonobstructive bowel pattern. IMPRESSION: 1. No acute process in the abdomen or pelvis. 2. Gastric pacer in good position. 3. Prior cholecystectomy. 4. Nonobstructive bowel pattern. 5. Normal appendix. Hospital Course (1) Gastroparesis: With possible acute flareup Received Emend during initial admission GI consulted given PRN antiemetics, placed on clear liquids s/Post EGD November 20, 2018: Unremarkable except for nonbleeding gastric ulcers associated with gastric pacemaker Nausea and emesis improevd advanced diet to gastroparesis diet--> tolerated diet well advised to follow gastroparesis diet at home (2) Renal failure (ARF), acute on chronic: Clinical dehydration secondary to intractable nausea, emesis secondary to gastroparesis flareup hx gastric pacemaker Gastroparesis problem compounded by chronic pain on narcotic regimen. -Received IV fluids -creatinine downtrended from 2.3 on presentation to 1.78 Bilateral lower extremity wounds Wound culture (+) MSSA wounds healing better Day #2 doxycycline 100 mg p.o. twice daily--> change to Clindamycin 300mg TID x 7 days (allergic to Penicillin) ff up with PCP Hypertension -continue metoprolol and lisinopril -resumed lisinopril Type 2 diabetes mellitus with group home current use of insulin, uncontrolled -suboptimal control as of recent outpatient hemoglobin A1c of 8.9 last May 2018 -continue insulin -diabetic diet -requested pharmacy glycemic control consult chronic anemia NSCLC stage III, status post surgery, incomplete chemotherapy secondary to intolerance, Past tobacco use Seizure prophylaxis -continue home dose Keppra DVT prophylaxis. SCDs, encourage ambulation Full code Disposition d/c home ff up with PCP in 1 week ff up with GI as scheduled Total Time Total Time Spent Total Time Spent (In Minutes): 40 MINS Discharge Plan Discharge Items Patient Disposition: Home - Self-Care Reason For Visit: ARF Discharge Diagnosis: GASTROPARESIS ACUTE FLARE, LOWER LEG WOUNDS Discharge Goals: Diagnostic testing and Therapeutic intervention Activity: Resume your previous activity Non-emergency contact: Primary Care Provider Call non-emergency contact if: you have any medication questions, your symptoms worsen, your pain is not controlled, your pain is worsening, your pain is unusual for you, you have a fever, your wound has increased redness, your wound has increased drainage and your wound pain has increased Follow-up/Referrals: Lionel Lutz DO [Primary Care Provider] - Diet: Carb Consistent or DM2 and Heart Healthy Diet Comment: GASTROPARESIS DIET Addtl Provider Instructions: ALWAYS FOLLOW GASTROPARESIS DIET. TAKE A PROBIOTIC DAILY AND INCLUDE YOGURT IN YOUR DAILY DIET. STAY WELL HYDRATED. FOLLOW UP WITH PRIMARY CARE PHYSICIAN IN 1 WEEK. THE SCHEDULING OFFICE WILL BE CALLING YOU FOR THE APPOINTMENT. CALL PRIMARY CARE PHYSICIAN OR RETURN TO THE ER IMMEDIATELY IF WITH WORSENING OF SYMPTOMS. Prescriptions: New clindamycin HCl 150 mg capsule 300 mg PO TID 7 Days Qty: 42 RF: 0 Continued multivitamin Tablet 1 tab PO DAILY RF: 0 levetiracetam [Keppra] 500 mg Tablet 500 mg PO BID RF: 0 ondansetron HCl 8 mg Tablet 8 mg PO Q8H PRN (Reason: Nausea) RF: 0 prochlorperazine maleate 10 mg Tablet 10 mg PO Q6H PRN (Reason: Acid Reflux) RF: 0 aspirin [Aspirin Low Dose] 81 mg Tablet,Delayed Release (Dr/Ec) 81 mg PO DAILY RF: 0 acetaminophen [Acetaminophen Extra Strength] 500 mg Tablet 1,000 mg PO Q6H PRN (Reason: Pain) RF: 0 pantoprazole 40 mg tablet,delayed release (DR/EC) 40 mg PO DAILY RF: 0 ferrous sulfate 325 mg (65 mg iron) Tablet 325 mg PO DAILY RF: 0 gabapentin 300 mg Capsule 300 mg PO TID RF: 0 epinephrine [EpiPen] 0.3 mg/0.3 mL Auto-Injector 0.3 mg IM Q3H PRN (Reason: Allergic Reaction) RF: 0 polyethylene glycol 3350 [Miralax] 17 gram/dose Powder 17 g PO DAILY RF: 0 albuterol sulfate 90 mcg/actuation Hfa Aerosol Inhaler 2 puff INHALATION Q4H PRN (Reason: Shortness Of Breath) RF: 0 lisinopril 40 mg Tablet 40 mg PO DAILY RF: 0 trimethobenzamide 300 mg Capsule 300 mg PO TID PRN (Reason: Nausea And Vomiting) RF: 0 Humalog U-100 Insulin 100 unit/mL Cartridge 1 sliding scale dose SUBCUT UD RF: 0 metoprolol tartrate 25 mg Tablet 75 mg PO BID RF: 0 Basaglar KwikPen U-100 Insulin 100 unit/mL (3 mL) Insulin Pen 15 unit SUBCUT HS RF: 0 oxycodone 10 mg Tablet 10 mg PO Q4H PRN (Reason: Pain) RF: 0 fentanyl 100 mcg/hr patch 72 hour 125 mcg transdermal .Q2D/UD RF: 0 fentanyl 25 mcg/hr patch 72 hour 125 mcg transdermal .Q2D/UD RF: 0 Linzess 72 mcg capsule 72 mcg PO DAILY RF: 0 Stand-Alone Forms: [facility] Discharge Orders: Discharge Order (Routine); Ordered 11/22/18 Ordered By: Antonino Car Admission Data Admit Date/Time: 11/18/18 01:20 Attending Provider: Antonino Car Admit Provider: Darian Chinchilla Primary Care Provider: Lionel Lutz V. Other Providers: Darian Chinchilla ; Edgar Bagley ; Marli Chvaes Service: Medical Other Interventions: Discharge Summary Assessment (RN) Last Done: 11/22/18 16:13 DC Date/Time DO NOT enter until pt leaves facility: 11/22/18 16:40
== END 2018-11-22 16:40 | disposition home or self-care (01) | DRG 74 ==
LOC: ED 20:49 → SUATTDRO 11-18 01:20 → 3W 11-18 01:20
DX: C34.90 Malignant neoplasm of unspecified part of unspecified bronchus or lung; N18.3 Chronic kidney disease, stage 3 (moderate); I12.9 Hypertensive chronic kidney disease with stage 1 through stage 4 chronic kidney disease, or unspecified chronic kidney disease; E86.0 Dehydration; E11.43 Type 2 diabetes mellitus with diabetic autonomic (poly)neuropathy; Z90.49 Acquired absence of other specified parts of digestive tract; Z87.891 Personal history of nicotine dependence; Z79.4 Long term (current) use of insulin; N17.9 Acute kidney failure, unspecified; Z91.030 Bee allergy status; Z88.0 Allergy status to penicillin; K31.84 Gastroparesis

== ENCOUNTER 2020-01-23 22:06 | Inpatient (IN) ==
[2020-01-23] MEDS ORDERED: METOCLOPRAMIDE HCL INJ 5 MG/ML 2 ML VIAL IV STA (22:21)
[2020-01-23] MEDS ORDERED: DiphenhydrAMINE HCL 50 MG/ML VIAL IV STA (22:21)
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
[2020-01-23] MEDS ORDERED: SODIUM CHLORIDE 0.9% 1000ML 1,000 ML IV SCH (22:30)
[2020-01-23 22:39] LABS: Eosinophils # (auto) 0.24 K/uL (0-0.5); Eosinophils % (auto) 5.2 %; Hematocrit (blood only) 27.7 % (42-52); Hemoglobin 9.2 g/dL (14.0-18.0); Immature Granulocytes # (auto) 0.02 K/uL (0.00-0.02); Immature Granulocytes % (auto) 0.4 %; Lymphocytes # (auto) 0.79 K/uL (1.2-3.4); Lymphocytes % (auto) 17.2 %; Mean Corpuscular Hemoglobin 28.9 pg (25-34); Mean Corpuscular Hgb Conc 33.2 g/dL (32-36); Mean Corpuscular Volume 87.1 fL (80-100); Mean Platelet Volume 9.2 fL (7.4-10.4); Monocytes # (auto) 0.63 K/uL (0.11-0.59); Monocytes % (auto) 13.8 %; Neutrophils % (auto) 63.4 %; Platelet Count 243 K/uL (130-400); RDW Coefficient of Variation 12.8 % (11.5-14.5); RDW Standard Deviation 41.5 fL (36.4-46.3); Red Blood Count 3.18 M/uL (4.7-6.1); White Blood Count 4.58 K/uL (4.8-10.8)
--- NOTE | 2020-01-23 22:45 | XRay Report ---
SINGLE VIEW CHEST CLINICAL HISTORY: Syncope. FINDINGS: An AP, portable, upright chest radiograph is compared to study dated 01/15/2020 and correlat ed with chest CT dated 07/29/2019. The examination is degraded by portable technique and patient rotat ion. The cardiomediastinal silhouette is unremarkable. There is volume loss in the left lung consiste nt with a history of previous surgical resection. Chronic interstitial thickening is similar to previ ous. Trace pleural fluid is again seen at the left lung base. No airspace consolidation is identified typical for pneumonia. No pneumothorax is seen. The skeletal structures are osteopenic. The bony tho rax is grossly intact. Cholecystectomy clips are noted in the right upper quadrant. IMPRESSION: No active disease in the chest. Electronically signed by: Russell Ty M.D. 01/23/2020 10:44 PM
[2020-01-23 22:56] LABS: Alanine Aminotransferase 15 U/L (12-78); Aspartate Aminotransferase 16 U/L (15-37); BUN Creatinine Ratio 8.5 (10-20); Blood Urea Nitrogen 16 mg/dl (7-18); Calcium 8.6 mg/dl (8.5-10.1); Carbon Dioxide 28 mmol/L (21-32); Chloride 102 mmol/L (98-107); Est GFR (African American) 44.7; Est GFR (Non-African American) 38.6; Glucose 115 mg/dl (70-99); Lipase 20 U/L (73-393); Magnesium 1.5 mg/dl (1.8-2.4); Potassium 3.7 mmol/L (3.5-5.1); Sodium 139 mmol/L (136-145)
[2020-01-23 23:06] LABS: Albumin Globulin Ratio 0.7 (0.9-2); Alkaline Phosphatase 113 U/L (45-117); Bilirubin,Total 0.2 mg/dl (0.2-1); Globulin 4.2 gm/dl (2.5-4.0); Total Protein 7.2 gm/dl (6.4-8.2); Troponin I < 0.015 ng/ml (0-0.045)
[2020-01-23] MEDS: MAGNESIUM SULFATE / D5W 1 GM/100 ML BAG IV SCH (23:40)
[2020-01-24] MEDS: MAGNESIUM SULFATE / D5W 1 GM/100 ML BAG IV SCH (00:35)
[2020-01-24 02:13] LABS: Appearance Urine Clear (Clear); Bacteria Urine Automated Negative (Negative); Bilirubin Urine Negative (Negative); Blood Urine Negative (Negative); Color Urine Yellow; Glucose Urine UA 2+ (Negative); Ketones Urine Negative (Negative); Leukocyte Esterase Urine Negative (Negative); Nitrite Urine Negative (Negative); RBC Urine Automated >30 /hpf (0-4); Urobilinogen Urine Negative (Negative); WBC Urine Automated 0 /hpf (0-5); pH Urine 7.5 (4.5-7.5)
[2020-01-24 02:14] LABS: Protein Urine 2+ (Negative)
[2020-01-24 02:17] LABS: Sulfosalicylic Acid Urine Positive (Negative)
[2020-01-24] MEDS ORDERED: ALBUTEROL HFA 8 GM INHALER INH PRN (04:07)
[2020-01-24] MEDS ORDERED: EPINEPHRINE ADULT AUTO-INJECT 0.3 MG SYR IM PRN (04:07)
[2020-01-24] MEDS ORDERED: NITROGLYCERIN SL 0.4 MG/TAB TAB SL PRN (04:07)
[2020-01-24] MEDS ORDERED: ACETAMINOPHEN 325 MG TAB PO PRN (04:07)
[2020-01-24] MEDS ORDERED: POLYETHYLENE (MIRALAX) 17 GM PACK PO PRN (04:07)
[2020-01-24] MEDS: SODIUM CHLORIDE 0.9% 1000ML 1,000 ML IV SCH ×2 (04:45→17:29)
[2020-01-24 06:22] LABS: Basophils # (auto) 0.01 K/uL (0-0.2); Basophils % (auto) 0.3 %; Eosinophils # (auto) 0.13 K/uL (0-0.5); Eosinophils % (auto) 3.8 %; Hematocrit (blood only) 26.9 % (42-52); Immature Granulocytes # (auto) 0.02 K/uL (0.00-0.02); Immature Granulocytes % (auto) 0.6 %; Lymphocytes # (auto) 0.82 K/uL (1.2-3.4); Lymphocytes % (auto) 23.7 %; Mean Corpuscular Hemoglobin 29.1 pg (25-34); Mean Corpuscular Hgb Conc 33.5 g/dL (32-36); Mean Corpuscular Volume 87.1 fL (80-100); Mean Platelet Volume 9.3 fL (7.4-10.4); Monocytes # (auto) 0.43 K/uL (0.11-0.59); Monocytes % (auto) 12.4 %; Neutrophils # (auto) 2.05 K/uL (1.4-6.5); Neutrophils % (auto) 59.2 %; Platelet Count 257 K/uL (130-400); RDW Standard Deviation 41.7 fL (36.4-46.3); Red Blood Count 3.09 M/uL (4.7-6.1); White Blood Count 3.46 K/uL (4.8-10.8)
[2020-01-24 06:58] LABS: BUN Creatinine Ratio 10.1 (10-20); Calcium 8.1 mg/dl (8.5-10.1); Creatinine Clr Calc Pharmacy 47.2 ml/min; Est GFR (African American) 50.8; Est GFR (Non-African American) 43.8; Magnesium 1.8 mg/dl (1.8-2.4); Potassium 4.4 mmol/L (3.5-5.1)
[2020-01-24 07:10] LABS: Beta-Hydroxybutyrate 2.52 mg/dl (0.2-2.81)
[2020-01-24] MEDS: INSULIN ASPART 100 UNITS/ML 3 ML PEN SC SCH ×4 (07:33→20:53)
[2020-01-24] MEDS: CHECK FENTANYL PATCH PLACEMENT SCH ×3 (07:36→22:33)
[2020-01-24] MEDS: CHECK CLONIDINE PATCH PLACEMENT SCH ×3 (07:36→22:33)
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
[2020-01-24] MEDS: PANTOprazole 40 MG TAB PO SCH (07:58)
[2020-01-24] MEDS: GABAPENTIN 300 MG CAP PO SCH ×3 (07:58→20:20)
[2020-01-24] MEDS: FERROUS SULFATE 325 MG TAB PO SCH (07:58)
[2020-01-24] MEDS: MULTIVITAMIN TAB PO SCH (07:58)
[2020-01-24] MEDS: levETIRAcetam 500 MG TAB PO SCH ×2 (07:58→20:15)
--- NOTE | 2020-01-24 08:16 | CT Scan Report ---
ABDOMEN AND PELVIS CT WITHOUT CONTRAST CT DOSE: HISTORY: Generalized abd pain, removal of gastric stimulator TECHNIQUE: Multiaxial CT images of the abdomen and pelvis were performed without contrast. A dose lo wering technique was utilized adhering to the principles of ALARA. COMPARISON STUDY: Abdomen and pelvis CT 01/15/2020. FINDINGS: The lung bases are essentially clear. Trace pneumoperitoneum. Diffuse body wall edema. Inte rval removal of the left lower quadrant subcutaneous electronic device. There is a large skin defect at this location with surrounding soft tissue thickening and infiltration. No loculated fluid collect ions identified to suggest an abscess. The bladder is distended. There is a moderate stool ball the r ectum. No bowel wall thickening or obstruction. Density seen within the appendix likely represent res idual barium from a prior study as these were not present on the prior examination. No evidence for a cute appendicitis. No retroperitoneal lymphadenopathy. Mild fullness within the renal collecting syst ems without hydronephrosis. The punctate stone within the lower pole the left kidney. The unenhanced liver, spleen, adrenal glands, and pancreas are unremarkable. Prior cholecystectomy. Suture material within the gastric antrum which is new from the prior study. This likely represents postoperative michelle nges consistent with removal of the gastric stimulator device. IMPRESSION: 1. Interval removal of the gastric stimulator device. 2. Trace pneumoperitoneum. This may be postoperative. 3. A focal defect/wound within the left lower quadrant abdominal wall with surrounding soft tissue th ickening and infiltration. This corresponds to the site of resection of the gastric stimulator. No lo culated fluid collections to suggest an abscess. 4. Distended bladder with mild fullness within the bilateral renal collecting systems. No obstructing stones. 5. Left-sided nephrolithiasis. ACT 112: Negative or not required by law. Electronically signed by: Danilo Langley M.D. 01/24/2020 8:14 AM
[2020-01-24] MEDS ORDERED: fentaNYL 100 MCG/HR TDSY TD SCH (09:00)
[2020-01-24] MEDS: OXYCODONE HCL IR 5 MG TAB (IMMEDIATE RELEASE) PO PRN ×4 (09:07→23:50)
[2020-01-24] MEDS: FLUTICASONE/VILANTEROL 100/25MCG 14 PUFFS/INHALER INH SCH (09:34)
[2020-01-24] MEDS: ESCITALOPRAM OXALATE 10 MG TAB PO SCH (09:35)
[2020-01-24] MEDS: METOCLOPRAMIDE HCL 10 MG TABLET PO SCH ×3 (09:35→20:15)
--- NOTE | 2020-01-24 11:05 | Electrocardiogram Report ---
Test Reason : Blood Pressure : / mmHG Vent. Rate : 072 BPM Atrial Rate : 072 BPM P-R Int : 154 ms QRS Dur : 102 ms QT Int : 440 ms P-R-T Axes : 017 -10 029 degrees QTc Int : 481 ms Normal sinus rhythm Poor R wave progression, consider anterior MT vs. lead placement vs. LVH Abnormal ECG When compared with ECG of 15-JAN-2020 14:29, Vent. rate has decreased BY 42 BPM Confirmed by Zuhair Summers ([id number]) on 01/24/2020 11:05:18 AM Referred By: REFERRED SELF Confirmed By:Aki Summers
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
[2020-01-24] MEDS: levETIRAcetam 250 MG TAB PO SCH ×2 (13:11→20:15)
[2020-01-24] MEDS ORDERED: INSULIN GLARGINE SOLOSTAR 100 UNITS/ML 3 ML PEN SC ONE (13:58)
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
[2020-01-24] MEDS: ONDANSETRON INJ 2 MG/ML 2 ML VIAL IV PRN (18:54)
[2020-01-24] MEDS ORDERED: HydrALAZINE HCL 20 MG/ML VIAL IV PRN (19:57)
[2020-01-24] MEDS ORDERED: PHARMACY GLYCEMIC MGMT CONSULT PRN (19:58)
[2020-01-24] MEDS: cloNIDine HCL 0.1 MG TAB PO PRN (20:14)
[2020-01-24] MEDS: fentaNYL 100 MCG/HR TDSY TD SCH (20:17)
[2020-01-24] MEDS: INSULIN GLARGINE SOLOSTAR 100 UNITS/ML 3 ML PEN SC SCH (20:49)
[2020-01-24] MEDS ORDERED: DEXTROSE 50% 50 ML SYRINGE IV PRN (21:30)
[2020-01-24] MEDS ORDERED: GLUCAGON FOR INJ 1 MG VIAL IM PRN (21:30)
[2020-01-24] MEDS ORDERED: GLUCOSE 40% GEL 15 GM TUBE PO PRN (21:30)
[2020-01-25] MEDS ORDERED: GADOBUTROL 65ML VIAL IV ONE (00:44)
[2020-01-25] MEDS: ONDANSETRON INJ 2 MG/ML 2 ML VIAL IV PRN ×3 (01:12→19:52)
[2020-01-25 06:16] LABS: Estimated Average Glucose 283 mg/dl; Hemoglobin A1C 11.5 % (4.5-5.6)
[2020-01-25 07:14] LABS: BUN Creatinine Ratio 9.1 (10-20); Calcium 8.3 mg/dl (8.5-10.1); Creatinine Clr Calc Pharmacy 43.8 ml/min; Est GFR (African American) 41.8; Est GFR (Non-African American) 36.1; Potassium 5.2 mmol/L (3.5-5.1)
--- NOTE | 2020-01-25 07:34 | Magnetic Resonance Report ---
MR brain seizure wo/w con HISTORY: 54 years-old Male recur sz, never imaged, recent miguel ángel ppm removed history of chronic seizur es. COMPARISON: Head CT of same day TECHNIQUE: Multiplanar multisequence MRI of the brain was obtained both with and without the use of G adavist utilizing seizure protocol. FINDINGS: Tip Finisher localizer images demonstrate no gross extracranial abnormality. No restricted diffusion to sugg est acute or subacute infarct. The midline structures including the corpus callosum, brainstem, optic chiasm, pituitary and pineal glands appear unremarkable on the sagittal T1 series. No cerebellar ton sillar herniation. No acute intracranial hemorrhage, midline shift, abnormal extra-axial collection, hydrocephalus or intracranial mass. Mild degree of patchy T2/FLAIR hyperintensities are noted through out the subcortical white matter of the bilateral cerebral hemispheres. No acute seizure focus. Bilat eral mesial temporal lobes are unremarkable. No evidence of mesial temporal sclerosis. There is no ab normal intra-axial or extra-axial enhancement. Intravascular flow-voids interval venous sinuses appea r patent. Mastoid air cells are generally clear. Paranasal sinuses are also generally clear. Skull, o rbits and soft tissues are unremarkable. IMPRESSION: 1. No acute intracranial abnormality. 2. No abnormal enhancement. 3. Mild scattered subcentimeter T2/FLAIR hyperintensities are noted within the subcortical white antwan er of the bilateral cerebral hemispheres, possibly representing early chronic microvascular ischemic disease. ACT 112: Negative or not required by law. The above report was generated using voice recognition software. It may contain grammatical, syntax o r spelling errors. Electronically signed by: Richard Metzger M.D. 01/25/2020 7:32 AM
[2020-01-25] MEDS: MULTIVITAMIN TAB PO SCH (08:22)
[2020-01-25] MEDS: levETIRAcetam 250 MG TAB PO SCH ×2 (08:22→19:52)
[2020-01-25] MEDS: GABAPENTIN 300 MG CAP PO SCH ×3 (08:22→19:53)
[2020-01-25] MEDS: ESCITALOPRAM OXALATE 10 MG TAB PO SCH (08:22)
[2020-01-25] MEDS: FERROUS SULFATE 325 MG TAB PO SCH (08:22)
[2020-01-25] MEDS: levETIRAcetam 500 MG TAB PO SCH ×2 (08:22→19:52)
[2020-01-25] MEDS: FLUTICASONE/VILANTEROL 100/25MCG 14 PUFFS/INHALER INH SCH (08:22)
[2020-01-25] MEDS: CHECK CLONIDINE PATCH PLACEMENT SCH ×3 (08:23→23:20)
[2020-01-25] MEDS: CHECK FENTANYL PATCH PLACEMENT SCH ×3 (08:26→23:20)
[2020-01-25] MEDS: PANTOprazole 40 MG TAB PO SCH (08:27)
[2020-01-25] MEDS: SODIUM CHLORIDE 0.9% 1000ML 1,000 ML IV SCH (08:27)
[2020-01-25] MEDS: METOCLOPRAMIDE HCL 10 MG TABLET PO SCH ×3 (08:27→19:52)
[2020-01-25] MEDS: INSULIN HUMAN REGULAR SC SCH ×4 (08:43→18:02)
--- NOTE | 2020-01-25 09:52 | CT Scan Report ---
CT chest wo con CLINICAL HISTORY: Lung carcinoma. Follow-up study COMPARISON STUDY: Chest CT scan dated 07/29/2019, CT scan the abdomen and pelvis dated 01/24/2020 CT DOSE: 567.93 mGycm TECHNIQUE: CT of the thorax was performed from the thoracic inlet to the lung bases. Images are revi ewed in the axial, sagittal, and coronal planes. IV contrast was not administered for this examinatio n. A dose lowering technique was utilized adhering to the principles of ALARA. FINDINGS: Thyroid: There is a 1 cm right lobe thyroid nodule similar to the prior study. Thoracic aorta: The thoracic aorta is normal in course and caliber, noting standard 3 vessel arch akanksha madelyn. Heart: The heart is normal in size. There is trace pericardial fluid/anterior pericardial thickening Lungs and pleural spaces: There are no pleural effusions. There are postsurgical changes of a left up per lobectomy. There is no focal pulmonary consolidation. Since the prior study, the patient develope d subtle right upper lobe groundglass opacities, likely infectious/inflammatory. There is scattered t iny pulmonary nodules which are unlikely to be of clinical significance. Mediastinum: There is no evidence of pathologic mediastinal lymphadenopathy Kaelyn: There is no evidence of pathologic hilar lymphadenopathy given the limitations of a noncontrast study Axilla: There is no evidence of pathologic axillary lymphadenopathy. Upper abdomen: There is persistent trace pneumoperitoneum. Skeletal structures: No destructive skeletal lesions are visualized. IMPRESSION: 1. Persistent trace pneumoperitoneum 2. Postsurgical changes of a left upper lobectomy 3. No evidence of pathologic adenopathy 4. No new or enlarging pulmonary masses 5. Subtle groundglass opacities within the right upper lobe, statistically infectious/inflammatory ACT 112: Negative or not required by law. Electronically signed by: Bruce Salamanca M.D. 01/25/2020 9:51 AM
--- NOTE | 2020-01-25 11:00 | Electroencephalogram ---
EEG Procedure Note Date of Service January 25, 2020 Start / End Times Start Time: 06:18 End Time: 06:38 Referring Physician Nidia Yeboah MD History A 54-year-old male with seizures. EEG performed for evaluation of epileptiform activity. Home Medication List Home Medications Medication Instructions Recorded Confirmed Type Basaglar KwikPen U-100 Insulin 15 unit SUBCUT HS 05/05/18 01/24/20 History Humalog U-100 Insulin 1 sliding scale dose SUBCUT UD 05/05/18 01/23/20 History albuterol sulfate 2 puff INHALATION Q4H PRN 05/05/18 01/23/20 History epinephrine [EpiPen] 0.3 mg IM Q3H PRN 05/05/18 01/23/20 History ferrous sulfate 325 mg PO QAM 05/05/18 01/24/20 History gabapentin 300 mg PO TID 05/05/18 01/24/20 History levetiracetam [Keppra] 500 mg PO BID 05/05/18 01/24/20 History multivitamin 1 tab PO QAM 05/05/18 01/24/20 History oxycodone 10 mg PO Q4H PRN 05/05/18 01/24/20 History pantoprazole 40 mg PO QAM 05/05/18 01/24/20 History polyethylene glycol 3350 [Miralax] 17 g PO DAILY PRN 05/05/18 01/24/20 History lisinopril 2.5 mg PO DAILY 12/24/18 01/24/20 History clonidine 1 patch TRANSDERMAL WK 01/23/20 01/23/20 History fentanyl 100 mcg TRANSDERMAL .CHANGE EVERY 01/23/20 01/24/20 History 48HR escitalopram oxalate [Lexapro] 10 mg PO DAILY 01/24/20 01/24/20 History fluticasone propion-salmeterol 1 inh INHALATION BID 01/24/20 01/24/20 History [Wixela Inhub] metoclopramide HCl [Reglan] 10 mg PO TID 01/24/20 01/24/20 History Inpatient Medication List Clonidine HCl (Clonidine Hcl 0.1 Mg Tab) 0.1 mg PO Q4H PRN PRN Reason: sys BP > 180 or graham BP > 100 Stop: 02/23/20 19:55 Last Admin: 01/24/20 20:14 Dose: 0.1 mg Documented by: [id number] Escitalopram Oxalate (Escitalopram Oxalate 10 Mg Tab) 10 mg PO DAILY DAMIR Stop: 02/23/20 08:59 Last Admin: 01/25/20 08:22 Dose: 10 mg Documented by: [id number] Admin: 01/24/20 09:35 Dose: 10 mg Documented by: [id number] Fentanyl (Fentanyl 100 Mcg/Hr Tdsy) 100 mcg TD Q48H DAMIR Stop: 02/07/20 20:59 Last Admin: 01/24/20 20:17 Dose: 100 mcg Documented by: [id number] Ferrous Sulfate (Ferrous Sulfate 325 Mg Tab) 325 mg PO QAM DAMIR Stop: 02/23/20 08:59 Last Admin: 01/25/20 08:22 Dose: 325 mg Documented by: [id number] Admin: 01/24/20 07:58 Dose: 325 mg Documented by: [id number] Fluticasone/Vilanterol (Fluticasone/Vilanterol 100/25mcg 14 Puffs/Inhaler) 1 puffs INH DAILY DAMIR Stop: 02/23/20 08:59 Last Admin: 01/25/20 08:22 Dose: 1 puffs Documented by: [id number] Admin: 01/24/20 09:34 Dose: 1 puffs Documented by: [id number] Gabapentin (Gabapentin 300 Mg Cap) 300 mg PO TID DAMIR Stop: 02/23/20 08:59 Last Admin: 01/25/20 08:22 Dose: 300 mg Documented by: [id number] Admin: 01/24/20 20:20 Dose: 300 mg Documented by: [id number] Admin: 01/24/20 13:15 Dose: 300 mg Documented by: [id number] Admin: 01/24/20 07:58 Dose: 300 mg Documented by: [id number] Glucose (Glucose 40% Gel 15 Gm Tube) 15 - 30 gm PO UD PRN; Protocol PRN Reason: Hypoglycemia Protocol Stop: 02/23/20 21:29 Last Admin: 01/24/20 18:55 Dose: 15 gm Documented by: [id number] Sodium Chloride (Nss 1000ml) 1,000 mls @ 75 mls/hr IV .[id number] DAMIR Stop: 02/23/20 16:00 Last Admin: 01/25/20 08:27 Dose: 75 mls/hr Documented by: [id number] Infusion: 01/25/20 08:02 Dose: 75 mls/hr Documented by: [id number] Infusion: 01/25/20 01:12 Dose: 75 mls/hr Documented by: [id number] Infusion: 01/25/20 00:00 Dose: 0 mls/hr Documented by: [id number] Admin: 01/24/20 17:29 Dose: 75 mls/hr Documented by: [id number] Infusion: 01/24/20 17:29 Dose: 75 mls/hr Documented by: [id number] Admin: 01/24/20 04:45 Dose: 75 mls/hr Documented by: [id number] Insulin Glargine (Insulin Glargine Solostar 100 Units/Ml 3 Ml Pen) 10 units SC HS DAMIR Stop: 02/23/20 20:59 Last Admin: 01/24/20 20:49 Dose: 10 units Documented by: [id number] Cosigned by: [id number] Insulin Human Regular (Insulin Human Regular) 0 units SC ACHS [facility]; Protocol Stop: 02/24/20 07:59 Last Admin: 01/25/20 08:43 Dose: 7 units Documented by: [id number] Cosigned by: [id number] Levetiracetam (Levetiracetam 500 Mg Tab) 500 mg PO BID DAMIR Stop: 02/23/20 08:59 Last Admin: 01/25/20 08:22 Dose: 500 mg Documented by: [id number] Admin: 01/24/20 20:15 Dose: 500 mg Documented by: [id number] Admin: 01/24/20 07:58 Dose: 500 mg Documented by: [id number] Levetiracetam (Levetiracetam 250 Mg Tab) 250 mg PO BID DAMIR Stop: 02/23/20 11:59 Last Admin: 01/25/20 08:22 Dose: 250 mg Documented by: [id number] Admin: 01/24/20 20:15 Dose: 250 mg Documented by: [id number] Admin: 01/24/20 13:11 Dose: 250 mg Documented by: [id number] Lisinopril (Lisinopril 2.5 Mg Tab) 2.5 mg PO DAILY DAMIR Stop: 02/23/20 08:59 Last Admin: 01/25/20 08:22 Dose: 2.5 mg Documented by: [id number] Admin: 01/24/20 09:34 Dose: 2.5 mg Documented by: [id number] Metoclopramide HCl (Metoclopramide Hcl 10 Mg Tablet) 10 mg PO TID [facility] Stop: 02/23/20 08:59 Last Admin: 01/25/20 08:27 Dose: 10 mg Documented by: [id number] Admin: 01/24/20 20:15 Dose: 10 mg Documented by: [id number] Admin: 01/24/20 13:15 Dose: 10 mg Documented by: [id number] Admin: 01/24/20 09:35 Dose: 10 mg Documented by: [id number] Miscellaneous (Check Clonidine Patch Placement) 1 ea N/A QS [facility] Stop: 02/23/20 07:59 Last Admin: 01/25/20 08:23 Dose: 1 ea Documented by: [id number] Admin: 01/24/20 22:33 Dose: 1 ea Documented by: [id number] Admin: 01/24/20 16:50 Dose: 1 ea Documented by: [id number] Admin: 01/24/20 07:36 Dose: 1 ea Documented by: [id number] Miscellaneous (Check Fentanyl Patch Placement) 1 ea N/A QS [facility] Stop: 02/23/20 07:59 Last Admin: 01/25/20 08:26 Dose: 1 ea Documented by: [id number] Admin: 01/24/20 22:33 Dose: 1 ea Documented by: [id number] Admin: 01/24/20 16:51 Dose: 1 ea Documented by: [id number] Admin: 01/24/20 07:36 Dose: 1 ea Documented by: [id number] Miscellaneous (Fentanyl Patch Remove & Waste) 1 ea N/A Q48H [facility] Stop: 02/23/20 20:58 Last Admin: 01/24/20 20:19 Dose: 1 ea Documented by: [id number] Cosigned by: [id number] Multivitamins (Multivitamin Tab) 1 tab PO QAM [facility] Stop: 02/23/20 08:59 Last Admin: 01/25/20 08:22 Dose: 1 tab Documented by: [id number] Admin: 01/24/20 07:58 Dose: 1 tab Documented by: [id number] Ondansetron HCl (Ondansetron Inj 2 Mg/Ml 2 Ml Vial) 4 mg IV Q6H PRN PRN Reason: Nausea Stop: 02/23/20 04:06 Last Admin: 01/25/20 10:00 Dose: 4 mg Documented by: [id number] Admin: 01/25/20 01:12 Dose: 4 mg Documented by: [id number] Admin: 01/24/20 18:54 Dose: 4 mg Documented by: [id number] Oxycodone HCl (Oxycodone Hcl Ir 5 Mg Tab (Immediate Release)) 10 mg PO Q4H PRN PRN Reason: Pain Stop: 02/07/20 08:38 Last Admin: 01/24/20 23:50 Dose: 10 mg Documented by: [id number] Admin: 01/24/20 18:54 Dose: 10 mg Documented by: [id number] Admin: 01/24/20 13:13 Dose: 10 mg Documented by: [id number] Admin: 01/24/20 09:07 Dose: 10 mg Documented by: [id number] Pantoprazole Sodium (Pantoprazole 40 Mg Tab) 40 mg PO QAM DAMIR Stop: 02/23/20 08:59 Last Admin: 01/25/20 08:27 Dose: 40 mg Documented by: [id number] Admin: 01/24/20 07:58 Dose: 40 mg Documented by: [id number] Discontinued Medications Diphenhydramine HCl (Diphenhydramine Hcl 50 Mg/Ml Vial) 12.5 mg IV NOW STA Stop: 01/23/20 22:22 Last Admin: 01/23/20 22:46 Dose: 12.5 mg Documented by: [id number] Gadobutrol (Gadobutrol 65ml Vial) 8 ml IV ONCE ONE Stop: 01/25/20 00:45 Last Admin: 01/25/20 00:45 Dose: 8 ml Documented by: [id number] Sodium Chloride (Nss 1000ml) 1,000 mls @ 999 mls/hr IV .Q1H1M DAMIR Stop: 01/23/20 23:30 Last Infusion: 01/23/20 23:40 Dose: 0 mls/hr Documented by: [id number] Admin: 01/23/20 22:28 Dose: 999 mls/hr Documented by: [id number] Magnesium Sulfate/Dextrose (Magnesium Sulfate / D5w) 1 gm in 100 mls @ 100 mls/hr IV Q1H DAMIR Stop: 01/24/20 01:14 Last Infusion: 01/24/20 01:41 Dose: 0 mls/hr Documented by: [id number] Admin: 01/24/20 00:35 Dose: 100 mls/hr Documented by: [id number] Infusion: 01/24/20 00:35 Dose: 0 mls/hr Documented by: [id number] Admin: 01/23/20 23:40 Dose: 100 mls/hr Documented by: [id number] Insulin Aspart (Insulin Aspart 100 Units/Ml 3 Ml Pen) 0 units SC ACHS DAMIR Stop: 02/23/20 07:29 Last Admin: 01/24/20 20:53 Dose: Not Given Documented by: [id number] Admin: 01/24/20 16:54 Dose: 5 units Documented by: [id number] Cosigned by: [id number] Admin: 01/24/20 11:58 Dose: 11 units Documented by: [id number] Cosigned by: [id number] Admin: 01/24/20 07:33 Dose: 10 units Documented by: [id number] Cosigned by: [id number] Insulin Glargine (Insulin Glargine Solostar 100 Units/Ml 3 Ml Pen) 5 units SC NOW ONE Stop: 01/24/20 13:59 Last Admin: 01/24/20 14:23 Dose: 5 units Documented by: [id number] Cosigned by: [id number] Metoclopramide HCl (Metoclopramide Hcl Inj 5 Mg/Ml 2 Ml Vial) 10 mg IV NOW STA Stop: 01/23/20 22:22 Last Admin: 01/23/20 22:46 Dose: 10 mg Documented by: [id number] Description This is a 21 electrode EEG with a single channel dedicated to limited EKG. The electrodes were placed in accordance with the International 10-20 system. REPORT: at the onset of the EEG the patient is asleep. The posterior dominant rhythm is not well seen during this recording. Instead the background predominately consist of 3-5 Hz theta delta activity. Photic stimulation does not induce any abnormalities. Hyperventilation is not performed. IMPRESSION: This is a normal asleep routine EEG. There is no focal slowing or epileptiform activity recorded. A repeat EEG when patient is more alert may be beneficial to better characterize the awake background if clinically indicated.
[2020-01-25] MEDS: GLUCOSE 10 TABS/TUBE PO PRN (11:44)
[2020-01-25] MEDS ORDERED: PROMETHAZINE HCL 25 MG in SODIUM CHLORIDE 0.9% 50 ML IV PRN (12:52)
[2020-01-25] MEDS: D5W AND 1/2NSS 1,000 ML IV SCH (13:05)
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
[2020-01-25] MEDS: OXYCODONE HCL IR 5 MG TAB (IMMEDIATE RELEASE) PO PRN (19:52)
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
[2020-01-25] MEDS: INSULIN GLARGINE SOLOSTAR 100 UNITS/ML 3 ML PEN SC SCH (21:16)
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
[2020-01-26] MEDS: D5W AND 1/2NSS 1,000 ML IV SCH ×2 (00:10→12:33)
[2020-01-26] MEDS: PROMETHAZINE HCL 12.5 MG in SODIUM CHLORIDE 0.9% 50 ML IV PRN (04:03)
[2020-01-26] MEDS: OXYCODONE HCL IR 5 MG TAB (IMMEDIATE RELEASE) PO PRN ×2 (04:22→20:01)
[2020-01-26] MEDS: INSULIN HUMAN REGULAR SC SCH ×4 (06:14→18:17)
[2020-01-26 06:54] LABS: BUN Creatinine Ratio 8.6 (10-20); Calcium 7.8 mg/dl (8.5-10.1); Creatinine Clr Calc Pharmacy 44.5 ml/min; Est GFR (African American) 41.8; Est GFR (Non-African American) 36.1
[2020-01-26] MEDS: CHECK CLONIDINE PATCH PLACEMENT SCH ×2 (08:02→14:59)
[2020-01-26] MEDS: CHECK FENTANYL PATCH PLACEMENT SCH ×2 (08:03→14:59)
[2020-01-26] MEDS: CARBOHYDRATES FOR HYPOGLYCEMIA PO PRN ×2 (08:51→09:09)
[2020-01-26] MEDS: FLUTICASONE/VILANTEROL 100/25MCG 14 PUFFS/INHALER INH SCH (08:53)
[2020-01-26] MEDS: GABAPENTIN 300 MG CAP PO SCH ×3 (08:54→19:48)
[2020-01-26] MEDS: MULTIVITAMIN TAB PO SCH (08:54)
[2020-01-26] MEDS: METOCLOPRAMIDE HCL 10 MG TABLET PO SCH (08:54)
[2020-01-26] MEDS: PANTOprazole 40 MG in SYRINGE 0 ML IV SCH ×2 (08:54→19:50)
[2020-01-26] MEDS: FERROUS SULFATE 325 MG TAB PO SCH (08:55)
[2020-01-26] MEDS: ESCITALOPRAM OXALATE 10 MG TAB PO SCH (08:55)
[2020-01-26] MEDS: levETIRAcetam 250 MG TAB PO SCH ×2 (08:55→19:48)
[2020-01-26] MEDS: levETIRAcetam 500 MG TAB PO SCH ×2 (08:55→19:48)
[2020-01-26] MEDS: GLUCOSE 10 TABS/TUBE PO PRN (09:25)
[2020-01-26] MEDS ORDERED: FOSAPREPITANT DIMEGLUMINE 150 MG in SODIUM CHLORIDE 0.9% 145 ML IV ONE (10:00)
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
[2020-01-26] MEDS: METOCLOPRAMIDE HCL INJ 5 MG/ML 2 ML VIAL IV SCH ×2 (14:58→19:49)
--- NOTE | 2020-01-26 15:45 | Hospitalist Progress Note ---
Date of Service January 26, 2020 Assessment & Plan (1) Syncope and collapse: Syncopal Episode Attributed to hypoglycemia +/- seizure --MRI Brain:No acute intracranial abnormality. No abnormal enhancement. Mild scattered subcentimeter T2/FLAIR hyperintensities are noted within the subcorti guillermina white matter of the bilateral cerebral hemispheres, possibly representing early chronic microvascular ischemic disease. --EEG:This is a normal asleep routine EEG. There is no focal slowing or epi leptiform activity recorded. A repeat EEG when patient is more alert may be beneficial to better characterize the awake background if clinically indicated. --No arrhythmias on telemetry --Appreciate cardiology, neurology input --Avoid hypoglycemic episodes --Keppra increased to 750 mg BID --Advised to avoid driving until cleared by Neurology (2) Diabetes mellitus type 2, uncontrolled: DM II Complicated by Neuropathy, Gastroparesis, Nephropathy. Hb A1C:11.5. Pharmacy consulted for inpatient glycemic management. Continue Insulin therapy Monitor BGs Hypoglycemic episodes secondary to ongoing nausea, vomiting Needs follow-up arranged with [facility] and Endocrinology upon discharge Discontinue IV fluids as able (3) Gastroparesis: Severe Gastroparesis H/O Recent removal of gastric stimulator Continue Reglan 10 mg TID Received Emend Appreciate GI Input Anti-emetics PRN Needs replacement of gastric stimulator at [facility] upon discharge (4) Metabolic encephalopathy: Acute metabolic encephalopathy Likely secondary to hypoglycemia Currently mental status back to baseline Monitor (5) Seizure disorder: H/O seizure disorder H/O Closed head injury. Last definite seizure 2 months ago. Possible seizure associated with loss of consciousness on presentation Appreciate Neurology Input EEG, MRI as above Continue Keppra Needs follow up with Neurology upon discharge in 2-3 weeks (6) Hypertension: BP Variable Likely due to distress from Nausea/Vomiting Continue clonidine patch, lisinopril. IV hydralazine PRN Monitor (7) Lung cancer: H/O non-small cell lung cancer S/P left upper lobectomy and chemotherapy Incomplete chemotherapy secondary to intolerance Follows with [facility] oncology (8) Infection and inflammatory reaction due to implanted electronic neurostimulator of peripheral nerve, electrode (lead), initial encounter: S/P removal of gastric stimulator last week in [place] by Dr. Donald Mendoza @ [facility]. CT findings discussed with him. Small pneumoperitoneum expected postop finding Gastric stimulator removed with with endoscopy and laparoscopy Needs follow-up with [facility] for replacement of gastric stimulator (9) DVT prophylaxis: SCDs Code Status Full Code Disposition Expect to discharge home when stable (10) Discharge planning issues: Anticipated discharge to home. Medical follow-up with Dr. Lutz. Diabetes follow-up with [facility] and Endocrinology. Admission and Anticipated Discharge Date Admission Date: January 24, 2020 Subjective Patient is seen and examined at bedside Reports nausea and vomiting this morning Had hypoglycemic episode after emesis Reports " staring" Episode which lasted for about 10 minutes as per patient The episode was unwitnessed Also reports transient dizziness Denies chest pain, shortness of breath, seizure-like activity Review of Systems Review of Systems: All systems reviewed & are unremarkable except as noted in HPI & below Physical Exam Physical Exam: Physical Exam: Vitals signs as noted above General Appearance:Moderately built and nourished, no apparent distress Head: normocephalic, Atraumatic Eyes: normal inspection, EOMI Neck: supple, Trachea midline Respiratory/Chest: Normal breath sounds, CTA Cardiovascular: S1, S2, No murmur Abdomen/GI:Soft, Non tender, Bowel sounds present, + Abd wound in dressing Extremities/Musculoskelatal:normal inspection, Trace edema Neurologic/Psych:AAOX3, grossly no focal neurological deficits Skin: normal color, warm Results & Data Results & Data ([facility]) Vital Signs (Past 12 Hours) Vital Signs Temp Pulse Pulse Resp BP BP Pulse Ox 01/26/20 11:39 36.3 C L 74 18 147/80 H 96 01/26/20 07:49 36.6 C 75 18 126/71 97 01/26/20 07:45 75 01/26/20 03:49 37.1 C 75 18 106/64 96 Laboratory Results [facility] 01/26/20 06:16 Sodium 137 Potassium 5.0 Chloride 105 Carbon Dioxide 27 BUN 18 Creatinine 2.03 H Glucose 195 H Calcium 7.8 L (1) Diabetes mellitus type 2, uncontrolled Glycemic state: with hyperglycemia Qualified Code(s): E11.65 - Type 2 diabetes mellitus with hyperglycemia (2) Hypertension Hypertension type: essential hypertension Qualified Code(s): I10 - Essential (primary) hypertension
[2020-01-26] MEDS: cloNIDine HCL 0.1 MG TAB PO PRN (19:48)
[2020-01-26] MEDS: fentaNYL 100 MCG/HR TDSY TD SCH (19:49)
[2020-01-27] MEDS: CHECK CLONIDINE PATCH PLACEMENT SCH ×4 (00:17→23:47)
[2020-01-27] MEDS: INSULIN HUMAN REGULAR SC SCH ×5 (00:17→23:51)
[2020-01-27] MEDS: CHECK FENTANYL PATCH PLACEMENT SCH ×4 (00:17→23:47)
[2020-01-27] MEDS: OXYCODONE HCL IR 5 MG TAB (IMMEDIATE RELEASE) PO PRN ×2 (00:51→23:50)
[2020-01-27] MEDS: PROMETHAZINE HCL 12.5 MG in SODIUM CHLORIDE 0.9% 50 ML IV PRN (03:23)
[2020-01-27 06:04] LABS: Hematocrit (blood only) 22.7 % (42-52); Hemoglobin 7.4 g/dL (14.0-18.0)
[2020-01-27 06:31] LABS: BUN Creatinine Ratio 9.9 (10-20); Calcium 7.7 mg/dl (8.5-10.1); Creatinine Clr Calc Pharmacy 49.4 ml/min; Est GFR (African American) 47.4; Est GFR (Non-African American) 40.9; Magnesium 1.8 mg/dl (1.8-2.4)
[2020-01-27] MEDS: ONDANSETRON INJ 2 MG/ML 2 ML VIAL IV PRN (08:56)
[2020-01-27] MEDS: FLUTICASONE/VILANTEROL 100/25MCG 14 PUFFS/INHALER INH SCH (10:12)
[2020-01-27] MEDS: MULTIVITAMIN TAB PO SCH (10:13)
[2020-01-27] MEDS: ESCITALOPRAM OXALATE 10 MG TAB PO SCH (10:13)
[2020-01-27] MEDS: METOCLOPRAMIDE HCL INJ 5 MG/ML 2 ML VIAL IV SCH ×3 (10:13→20:29)
[2020-01-27] MEDS: GABAPENTIN 300 MG CAP PO SCH ×3 (10:13→20:29)
[2020-01-27] MEDS: levETIRAcetam 500 MG TAB PO SCH ×2 (10:13→20:29)
[2020-01-27] MEDS: FERROUS SULFATE 325 MG TAB PO SCH (10:13)
[2020-01-27] MEDS: levETIRAcetam 250 MG TAB PO SCH ×2 (10:13→20:29)
--- NOTE | 2020-01-27 10:13 | Gastroenterology Progress Note ---
Date of Service January 27, 2020 Assessment & Plan (1) Gastroparesis: Pt is a 54 y/o male w hx of DM II, gastroparesis, seen for n/v symptoms. Hx of gastric pacer placement but this was recently removed on 01/18 due to pacer erosion into stomach. Since then pt reports n/v symptoms had been worse. Received Emend IV yesterday. Last emesis 2am, last BM yesterday, denies signs of GI bleeding but noted blood ct dropped 11/29. - Plan for EGD eval tomorrow. Will keep him on CL diet today. NPO after midnight - Continue Reglan 5mg IV TID - Add Emend 150mg IV x 1 dose today - Phenergan on PRN basis - Eventual f/u w [facility] for future plans of gastric pacer replacement Attg add: I interviewed and examined pt, reviewed chart and labs. Pt reports marked improvement in nausea after EMend. Labs show decreased hgb. Plan EGD tomorrow; s/p recent csocpy. Admission and Anticipated Discharge Date Admission Date: January 24, 2020 Subjective Pt had last emesis around 2AM last night. No BMs since yesterday. He tolerated solid meal this AM w/o n/v. Denies any signs of GI bleeding though noted H/H dropped Review of Systems Review of Systems: All systems reviewed & are unremarkable except as noted in HPI & below Physical Exam Constitutional: WD/WN, vitals as above well groomed, cooperative and comfortable Eyes: PERRL, conjunctivae normal, anicteric sclerae ENMT: external ear and nose normal, oropharynx normal Respiratory: normal respiratory effort, lungs clear to auscultation Cardiovascular: RRR, no murmur, no edema Gastrointestinal (Abdomen): Inspection/Auscultation: normal bowel sounds Percussion/Palpation: abdomen soft; abdomen nontender Skin: no rashes, warm and dry no jaundice Psychiatric: A+Ox3, euthymic affect Lymphatic: no lymphedema Results & Data ([facility]) Vital Signs (Past 12 Hours) Vital Signs Temp Pulse Resp BP Pulse Ox 01/27/20 07:07 36.5 C 75 19 163/83 H 96 01/27/20 03:46 36.5 C 83 16 160/91 H 98 01/27/20 00:04 36.5 C 83 18 168/84 H 97
[2020-01-27] MEDS: PANTOprazole 40 MG in SYRINGE 0 ML IV SCH ×2 (11:21→20:29)
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
[2020-01-27 15:03] LABS: Hematocrit (blood only) 25.5 % (42-52); Hemoglobin 8.2 g/dL (14.0-18.0)
--- NOTE | 2020-01-27 17:01 | Hospitalist Progress Note ---
Date of Service January 27, 2020 Assessment & Plan (1) Syncope and collapse: Syncopal Episode Attributed to hypoglycemia +/- seizure --MRI Brain:No acute intracranial abnormality. No abnormal enhancement. Mild scattered subcentimeter T2/FLAIR hyperintensities are noted within the subcorti guillermina white matter of the bilateral cerebral hemispheres, possibly representing early chronic microvascular ischemic disease. --EEG:This is a normal asleep routine EEG. There is no focal slowing or epi leptiform activity recorded. A repeat EEG when patient is more alert may be beneficial to better characterize the awake background if clinically indicated. --No arrhythmias on telemetry --Appreciate cardiology, neurology input --Avoid hypoglycemic episodes --Keppra increased to 750 mg BID --Advised to avoid driving until cleared by Neurology --No recurrence of seizure-like activity (2) Diabetes mellitus type 2, uncontrolled: DM II Complicated by Neuropathy, Gastroparesis, Nephropathy. Hb A1C:11.5. Pharmacy consulted for inpatient glycemic management. Continue Insulin therapy Monitor BGs Hypoglycemic episodes likely secondary to ongoing nausea, vomiting Needs follow-up arranged with [facility] and Endocrinology upon discharge IV fluids discontinued Continue to monitor (3) Gastroparesis: Severe Gastroparesis H/O Recent removal of gastric stimulator Continue Reglan 10 mg TID Received Emend Appreciate GI Input Anti-emetics PRN Needs replacement of gastric stimulator at [facility] upon discharge Plan for EGD tomorrow (4) Metabolic encephalopathy: Acute metabolic encephalopathy Likely secondary to hypoglycemia Currently mental status back to baseline Monitor (5) Seizure disorder: H/O seizure disorder H/O Closed head injury. Last definite seizure 2 months ago. Possible seizure associated with loss of consciousness on presentation Appreciate Neurology Input EEG, MRI as above Continue Keppra Needs follow up with Neurology upon discharge in 2-3 weeks (6) Hypertension: BP Variable Continue clonidine patch, lisinopril. IV hydralazine PRN Monitor Chronic anemia Noted hemoglobin drop Partly dilutional with IV fluids Denies any bleeding issues Plan for EGD tomorrow Monitor H&H (7) Lung cancer: H/O non-small cell lung cancer S/P left upper lobectomy and chemotherapy Incomplete chemotherapy secondary to intolerance Follows with [facility] oncology Tobacco Use Chews Tobacco Advanced Clinical Specialist to quit (8) Infection and inflammatory reaction due to implanted electronic neurostimulator of peripheral nerve, electrode (lead), initial encounter: S/P removal of gastric stimulator last week in [place] by Dr. Donald Mendoza @ [facility]. CT findings discussed with him. Small pneumoperitoneum expected postop finding Gastric stimulator removed with with endoscopy and laparoscopy Needs follow-up with [facility] for replacement of gastric stimulator (9) DVT prophylaxis: SCDs Re: Anemia Code Status Full Code Disposition Expect to discharge home when stable (10) Discharge planning issues: Anticipated discharge to home. Medical follow-up with Dr. Lutz. Diabetes follow-up with [facility] and Endocrinology. Admission and Anticipated Discharge Date Admission Date: January 24, 2020 Subjective Patient is seen and examined at bedside Reports nausea with minimal emesis today Mostly tolerated food Noted drop in hemoglobin Patient denies any bleeding issues Noticed by RN- patient is chewing tobacco No significant abdominal pain No recurrence of seizure-like activity Denies chest pain, shortness of breath, dizziness Plan for EGD tomorrow Review of Systems Review of Systems: All systems reviewed & are unremarkable except as noted in HPI & below Physical Exam Physical Exam: Physical Exam: Vitals signs as noted above General Appearance:Moderately built and nourished, no apparent distress Head: normocephalic, Atraumatic Eyes: normal inspection, EOMI Neck: supple, Trachea midline Respiratory/Chest: Normal breath sounds, CTA Cardiovascular: S1, S2, No murmur Abdomen/GI:Soft, Non tender, Bowel sounds present, + Abd wound in dressing Extremities/Musculoskelatal:normal inspection, Trace edema Neurologic/Psych:AAOX3, grossly no focal neurological deficits Skin: normal color, warm Results & Data Results & Data ([facility]) Vital Signs (Past 12 Hours) Vital Signs Temp Pulse Resp BP Pulse Ox 01/27/20 15:54 37.1 C 76 20 108/67 97 01/27/20 07:07 36.5 C 75 19 163/83 H 96 Laboratory Results Short CBC 01/27/20 01/27/20 Range/Units 05:35 14:38 Hgb 7.4 L 8.2 L (14.0-18.0) g/dL Hct 22.7 L 25.5 L (42-52) % BMP 01/27/20 05:35 Sodium 141 Potassium 5.0 Chloride 108 H Carbon Dioxide 27 BUN 18 Creatinine 1.83 H Glucose 144 H Calcium 7.7 L (1) Diabetes mellitus type 2, uncontrolled Glycemic state: with hyperglycemia Qualified Code(s): E11.65 - Type 2 diabetes mellitus with hyperglycemia (2) Hypertension Hypertension type: essential hypertension Qualified Code(s): I10 - Essential (primary) hypertension
[2020-01-28] MEDS: INSULIN HUMAN REGULAR SC SCH ×3 (06:14→19:43)
[2020-01-28 07:44] LABS: Hemoglobin 7.4 g/dL (14.0-18.0); Mean Corpuscular Hemoglobin 28.7 pg (25-34); Mean Corpuscular Hgb Conc 32.2 g/dL (32-36); Mean Corpuscular Volume 89.1 fL (80-100); Mean Platelet Volume 9.1 fL (7.4-10.4); Platelet Count 277 K/uL (130-400); RDW Coefficient of Variation 13.4 % (11.5-14.5); RDW Standard Deviation 43.1 fL (36.4-46.3); Red Blood Count 2.58 M/uL (4.7-6.1); White Blood Count 5.51 K/uL (4.8-10.8)
[2020-01-28] MEDS: CHECK FENTANYL PATCH PLACEMENT SCH ×2 (08:26→16:41)
[2020-01-28] MEDS: CHECK CLONIDINE PATCH PLACEMENT SCH ×2 (08:26→16:41)
[2020-01-28 09:01] LABS: BUN Creatinine Ratio 15.2 (10-20); Calcium 8.3 mg/dl (8.5-10.1); Est GFR (African American) 47.7; Est GFR (Non-African American) 41.2; Magnesium 1.9 mg/dl (1.8-2.4); Potassium 5.3 mmol/L (3.5-5.1)
--- NOTE | 2020-01-28 10:00 | Communication Note ---
Date of Service: January 28, 2020 Pt had been NPO since midnight for planned EGD eval. Vomited once last night. Denies hematemesis, or coffee ground emesis. BM yesterday w/o signs of GI bleeding as well. Labs, VS reviewed. H/H similarly low since yesterday. Exam: - Sleeping, but easily awakened. No acute distress - CTA bilateral lungs - HRR no murmur or gallops - Abd soft, TTP on LLQ, mid abd incision areas - No edema on bilateral LE GI will give further recs after EGD is completed. attg add: I interviewed and examined pt, reviewed chart and labs. Agree with above. EGD today.
--- NOTE | 2020-01-28 10:09 | Anesthesiology Consultation ---
Date of Service January 28, 2020 Covid 19 negative today. Assessment & Plan (1) Encounter for pre-operative examination: Chart Review Chart Review: Acceptable Risk for Surgery and Patient NOT seen in Pre Admission Testing Consults Requested none medicine is following the patient on the floor History Surgery Operation Date: 01/28/20 16:30 Proposed Procedures p Esophagogastroduodenoscopy Dr Camargo - Mahesh Avila Height/Weight Height: 5 ft 8 in Weight: 87.9 kg Allergies Allergy/AdvReac Type Severity Reaction Status Date / Time bee venom protein (honey bee) Allergy Mild SWELLING Verified 01/23/20 23:13 AT SITE, SOB Penicillins Allergy Unknown "SINCE Verified 01/23/20 23:13 "-Amoxicillin cat dander Allergy Unknown Verified 01/23/20 23:13 Medications Home Medications Medication Instructions Recorded Confirmed Last Taken Basaglar KwikPen U-100 Insulin 15 unit SUBCUT HS 05/05/18 01/24/20 01/14/20 Humalog U-100 Insulin 1 sliding scale dose SUBCUT UD 05/05/18 01/23/20 01/14/20 albuterol sulfate 2 puff INHALATION Q4H PRN 05/05/18 01/23/20 12/24/18 epinephrine [EpiPen] 0.3 mg IM Q3H PRN 05/05/18 01/23/20 04/28/18 ferrous sulfate 325 mg PO QAM 05/05/18 01/24/20 01/14/20 gabapentin 300 mg PO TID 05/05/18 01/24/20 01/14/20 levetiracetam [Keppra] 500 mg PO BID 05/05/18 01/24/20 01/14/20 multivitamin 1 tab PO QAM 05/05/18 01/24/20 01/14/20 oxycodone 10 mg PO Q4H PRN 05/05/18 01/24/20 04/28/18 pantoprazole 40 mg PO QAM 05/05/18 01/24/20 01/14/20 polyethylene glycol 3350 [Miralax] 17 g PO DAILY PRN 05/05/18 01/24/20 04/28/18 lisinopril 2.5 mg PO DAILY 12/24/18 01/24/20 01/14/20 clonidine 1 patch TRANSDERMAL WK 01/23/20 01/23/20 Unknown fentanyl 100 mcg TRANSDERMAL .CHANGE EVERY 01/23/20 01/24/20 Unknown 48HR escitalopram oxalate [Lexapro] 10 mg PO DAILY 01/24/20 01/24/20 Unknown fluticasone propion-salmeterol 1 inh INHALATION BID 01/24/20 01/24/20 Unknown [Wixela Inhub] metoclopramide HCl [Reglan] 10 mg PO TID 01/24/20 01/24/20 Unknown Active Medications Generic Name Dose Route Start Last Admin Trade Name Freq PRN Reason Stop Dose Admin Clonidine HCl 0.1 mg 01/24/20 19:56 01/26/20 19:48 Clonidine Hcl 0.1 Mg Tab PO 02/23/20 19:55 0.1 mg Q4H PRN Administration sys BP > 180 or graham BP > 100 Dextrose 25 - 50 ml 01/24/20 21:30 01/25/20 12:04 Dextrose 50% 50 Ml Syringe IV 02/23/20 21:29 25 ml UD PRN Administration Hypoglycemia Protocol Protocol Escitalopram Oxalate 10 mg 01/24/20 09:00 01/27/20 10:13 Escitalopram Oxalate 10 Mg Tab PO 02/23/20 08:59 10 mg DAILY DAMIR Administration Fentanyl 100 mcg 01/24/20 21:00 01/26/20 19:49 Fentanyl 100 Mcg/Hr Tdsy TD 02/07/20 20:59 100 mcg Q48H DAMIR Administration Ferrous Sulfate 325 mg 01/24/20 09:00 01/27/20 10:13 Ferrous Sulfate 325 Mg Tab PO 02/23/20 08:59 325 mg QAM DAMIR Administration Fluticasone/Vilanterol 1 puffs 01/24/20 09:00 01/27/20 10:12 Fluticasone/Vilanterol 100/25mcg 14 Puffs/Inhaler INH 02/23/20 08:59 1 puffs DAILY DAMIR Administration Gabapentin 300 mg 01/24/20 09:00 01/27/20 20:29 Gabapentin 300 Mg Cap PO 02/23/20 08:59 300 mg TID DAMIR Administration Glucose 15 - 30 gm 01/24/20 21:30 01/24/20 18:55 Glucose 40% Gel 15 Gm Tube PO 02/23/20 21:29 15 gm UD PRN Administration Hypoglycemia Protocol Protocol Glucose 4 - 8 tabs 01/24/20 21:30 01/26/20 09:25 Glucose 10 Tabs/Tube PO 02/23/20 21:29 4 tabs UD PRN Administration Hypoglycemia Protocol Protocol Promethazine HCl 12.5 mg/ 50.5 mls @ 202 mls/hr 01/26/20 01:36 01/27/20 04:21 Sodium Chloride IV 02/25/20 01:35 Infused Q6H PRN Infusion Nausea And Vomiting Pantoprazole Sodium 40 mg/ 10 mls @ 5 mls/min 01/26/20 09:00 01/27/20 20:29 Syringe IV 02/25/20 08:59 5 mls/min BID DAMIR Administration Insulin Human Regular 0 units 01/26/20 18:00 01/28/20 06:14 Insulin Human Regular SC 02/25/20 17:59 2 units Q6 DAMIR Administration Protocol Levetiracetam 500 mg 01/24/20 09:00 01/27/20 20:29 Levetiracetam 500 Mg Tab PO 02/23/20 08:59 500 mg BID DAMIR Administration Levetiracetam 250 mg 01/24/20 12:00 01/27/20 20:29 Levetiracetam 250 Mg Tab PO 02/23/20 11:59 250 mg BID DAMIR Administration Lisinopril 2.5 mg 01/24/20 09:00 01/27/20 10:13 Lisinopril 2.5 Mg Tab PO 02/23/20 08:59 2.5 mg DAILY DAMIR Administration Metoclopramide HCl 5 mg 01/26/20 14:00 01/27/20 20:29 Metoclopramide Hcl Inj 5 Mg/Ml 2 Ml Vial IV 02/25/20 13:59 5 mg TID DAMIR Administration Miscellaneous 1 ea 01/24/20 08:00 01/28/20 08:26 Check Clonidine Patch Placement N/A 02/23/20 07:59 1 ea QS DAMIR Administration Miscellaneous 1 ea 01/24/20 08:00 01/28/20 08:26 Check Fentanyl Patch Placement N/A 02/23/20 07:59 1 ea QS DAMIR Administration Miscellaneous 1 ea 01/24/20 20:59 01/26/20 19:57 Fentanyl Patch Remove & Waste N/A 02/23/20 20:58 1 ea Q48H DAMIR Administration Miscellaneous 15 - 30 gm 01/24/20 21:30 01/26/20 09:09 Carbohydrates For Hypoglycemia PO 02/23/20 21:29 15 gm UD PRN Administration Hypoglycemia Treatment Multivitamins 1 tab 01/24/20 09:00 01/27/20 10:13 Multivitamin Tab PO 02/23/20 08:59 1 tab QAM DAMIR Administration Ondansetron HCl 4 mg 01/24/20 04:07 01/27/20 08:56 Ondansetron Inj 2 Mg/Ml 2 Ml Vial IV 02/23/20 04:06 4 mg Q6H PRN Administration Nausea Oxycodone HCl 10 mg 01/24/20 08:39 01/27/20 23:50 Oxycodone Hcl Ir 5 Mg Tab (Immediate Release) PO 02/07/20 08:38 10 mg Q4H PRN Administration Pain Past Medical History Medical History Acute dyspnea Acute hyponatremia IVAN (acute kidney injury) Anemia Chest pain No current chest pain...related to reflux per patient Chronic pain COPD (chronic obstructive pulmonary disease) Diabetes mellitus type 2, uncontrolled Diabetic autonomic neuropathy Diabetic peripheral neuropathy Discharge planning issues DVT prophylaxis Gastroparesis "s/p gastric stimulator" Hypertension Hypomagnesemia Intractable nausea and vomiting Lung cancer "dx 01/2016; adenoCa SHAWN; + hilar nodes; s/p left upper lobectomy + chemo" On 08/05/16 16:31 Edie Mcfarland wrote "dx 01/2016; s/p L side lobectomy; currently undergoing chemo" Nausea and vomiting Orthostatic hypotension Pneumonia Pneumonia Renal insufficiency Seizure disorder Past Family History Family History Other Family history non-contributory Past Surgical History Surgical History H/O colonoscopy " 04/22/2013- Mildly congested and erythematous mucosa in the ascending colon. One 1 mm polyp in the ascending colon resected. One benign appearing 1 mm polyp in the rectum resected. Internal hemorrhoids; Dr. Demarco" H/O esophagogastroduodenoscopy "01/26/2015- [place] Grade B reflux esophagitis, gastritis; Dr. Major" History of cholecystectomy History of tonsillectomy and adenoidectomy Hx of total knee arthroplasty S/P lobectomy of lung "left upper lobectomy for adenoCa" On 08/05/16 16:30 Edie Mcfarland wrote "[place] [facility] [place]" Status post insertion of intrathecal pump explanted Social History Smoking Status: Never smoker tobacco type: smokeless tobacco Hx Alcohol Use: No alcohol intake frequency: holidays/special occasions only Hx Substance Use: No substance use type: prescription drug Substance Use Type Other:: fentanyl patch 24hrs a day-refused removal of 2 patches Last Used Substance: Just Prior to Arrival Last Used Substance Other:: current patches intact Physical Exam Vital Signs Last Vital Signs Temp 36.6 C 01/28/20 07:33 Pulse 82 01/28/20 07:33 Resp 18 01/28/20 07:33 BP 163/85 H 01/28/20 07:33 Pulse Ox 97 01/28/20 07:33 Testing Laboratory Results 01/28/20 07:17 01/28/20 07:17 Hemoglobin A1c 11.5 % (4.5-5.6) H 01/24/20 06:02 Urine Color Yellow 01/24/20 02:00 Urine Appearance Clear (Clear) 01/24/20 02:00 Urine pH 7.5 (4.5-7.5) 01/24/20 02:00 Ur Specific [place] 1.010 (1.000-1.030) 01/24/20 02:00 Urine Protein 2+ (Negative) H 01/24/20 02:00 Urine Glucose (UA) 2+ (Negative) H 01/24/20 02:00 Urine Ketones Negative (Negative) 01/24/20 02:00 Urine Nitrite Negative (Negative) 01/24/20 02:00 Ur Leukocyte Esterase Negative (Negative) 01/24/20 02:00 Urine WBC (Auto) 0 /hpf (0-5) 01/24/20 02:00 Urine RBC (Auto) >30 /hpf (0-4) H 01/24/20 02:00 U Hyaline Cast (Auto) 1-5 /lpf (0-5) 01/24/20 02:00 U Epithel Cells (Auto) 10-20 /lpf (0-5) H 01/24/20 02:00 Urine Bacteria (Auto) Negative (Negative) 01/24/20 02:00 01/24/20 06:02 Aerobic Blood Culture - Preliminary Blood No growth in Aerobic bottle after 48 hours. Anaerobic Blood Culture - Preliminary No growth in Anaerobic bottle after 48 hours. 01/24/20 06:18 Aerobic Blood Culture - Preliminary Blood No growth in Aerobic bottle after 48 hours. Anaerobic Blood Culture - Preliminary No growth in Anaerobic bottle after 48 hours. 01/23/20 23:37 Aerobic Blood Culture - Preliminary Blood No growth in Aerobic bottle after 48 hours. Anaerobic Blood Culture - Preliminary No growth in Anaerobic bottle after 48 hours. 01/23/20 23:27 Aerobic Blood Culture - Preliminary Blood No growth in Aerobic bottle after 48 hours. Anaerobic Blood Culture - Preliminary No growth in Anaerobic bottle after 48 hours. 01/28/20 01/27/20 06:13 23:47 POC Glucose 176 H 147 H Electrocardiogram Date: 01/23/20 Findings: + NSR @ (72) and + poor R wave progression Echocardiogram Date: 01/24/20 EF: 55-60 LV Function: normal Other Findings: + LVH (moderate) Valvular Disease: + MR (trace) Other Testing CT chest wo con CLINICAL HISTORY: Lung carcinoma. Follow-up study COMPARISON STUDY: Chest CT scan dated 07/29/2019, CT scan the abdomen and pelvis dated 01/24/2020 CT DOSE: 567.93 mGycm TECHNIQUE: CT of the thorax was performed from the thoracic inlet to the lung bases. Images are reviewed in the axial, sagittal, and coronal planes. IV contrast was not administered for this examination. A dose lowering technique was utilized adhering to the principles of ALARA. FINDINGS: Thyroid: There is a 1 cm right lobe thyroid nodule similar to the prior study. Thoracic aorta: The thoracic aorta is normal in course and caliber, noting standard 3 vessel arch anatomy. Heart: The heart is normal in size. There is trace pericardial fluid/anterior pericardial thickening Lungs and pleural spaces: There are no pleural effusions. There are postsurgical changes of a left upper lobectomy. There is no focal pulmonary consolidation. Since the prior study, the patient developed subtle right upper lobe groundglass opacities, likely infectious/inflammatory. There is scattered tiny pulmonary nodules which are unlikely to be of clinical significance. Mediastinum: There is no evidence of pathologic mediastinal lymphadenopathy Kaelyn: There is no evidence of pathologic hilar lymphadenopathy given the limitations of a noncontrast study Axilla: There is no evidence of pathologic axillary lymphadenopathy. Upper abdomen: There is persistent trace pneumoperitoneum. Skeletal structures: No destructive skeletal lesions are visualized. IMPRESSION: 1. Persistent trace pneumoperitoneum 2. Postsurgical changes of a left upper lobectomy 3. No evidence of pathologic adenopathy 4. No new or enlarging pulmonary masses 5. Subtle groundglass opacities within the right upper lobe, statistically infectious/inflammatory ACT 112: Negative or not required by law. Electronically signed by: Bruce Salamanca M.D. 01/25/2020 9:51 AM Dictated: 01/25/20939 Transcribed: 01/25/20939
--- NOTE | 2020-01-28 10:47 | History & Physical Bridge Note ---
Date of Service January 28, 2020 History & Physical Bridge Note I have examined the patient, reviewed the History & Physical and in the interval since the performance of the History & Physical I have noted the following changes of clinical significance: no changes noted
[2020-01-28] MEDS ORDERED: LIDOCAINE HCL 2% 2 ML VIAL/AMP(20MG/ML) INFIL ONE (11:13)
[2020-01-28] MEDS ORDERED: PROPOFOL IV EMULSION 10 MG/ML 20 ML VIAL IV ONE (11:13)
--- NOTE | 2020-01-28 11:38 | GI REPORT ---
Patient Name: Jeff Hamilton Procedure Date: 01/28/2020 10:58 AM Date of : 1965 Admit Type: Inpatient Age: 54 Gender: Male Attending MD: Mahesh Avila MD Procedure: Upper GI endoscopy Providers: Mahesh Avila MD Referring MD: Jose Wells Md Indications: Acute post hemorrhagic anemia Medicines: See the Anesthesia note for documentation of the administered medications Complications: No immediate complications. Estimated Blood Loss: Estimated blood loss: none. Procedure: Pre-Anesthesia Assessment: - ASA Grade Assessment: III - A patient with severe systemic disease. After obtaining informed consent, the endoscope was passed under direct vision. Throughout the procedure, the patient's blood pressure, pulse, and oxygen saturations were monitored continuously. The Endoscope was introduced through the mouth, and advanced to the second part of duodenum. The upper GI endoscopy was accomplished without difficulty. The patient tolerated the procedure well. Findings: The Z-line was irregular and was found 38 cm from the incisors, with columnar mucosa extending 0.5 cm above the GE junction. The esophagus was otherwise normal. There was patchy erythema in the fundus of the stomach, likely related to vomiting. There was a well healed surgical scar on the lesser curve of the stomach. The stomach was otherwise normal. The duodenum was normal. Biopsies taken from stomach and GE junction. No source of GI bleeding found. Recommendation: - Discharge patient to home. Olga Spence MD 01/28/2020 11:37:27 AM This report has been signed electronically. Note Initiated On: 01/28/2020 10:58 AM Number of Addenda: 0 I attest to the content of the Intraoperative Record and orders documented therein, exceptions below {[id number]}
--- NOTE | 2020-01-28 11:41 | Anesthesiology Progress Note ---
Date of Service January 28, 2020 Anesthesia Post Procedure Vital Signs Vital Signs: Temp Pulse Pulse Resp BP BP Pulse Ox 01/28/20 11:31 80 16 174/104 H 100 01/28/20 11:16 77 16 125/66 98 01/28/20 10:25 36.7 C 75 18 191/104 H 94 01/28/20 07:33 36.6 C 82 18 163/85 H 97 01/28/20 07:00 69 01/28/20 03:45 36.6 C 80 20 124/74 92 01/28/20 00:00 76 01/27/20 23:45 37 C 78 16 109/61 96 01/27/20 20:15 37.2 C 80 16 134/78 95 01/27/20 15:54 37.1 C 76 20 108/67 97 01/27/20 15:00 89 Pain Intensity Generalized: Pain Intensity: 3 Transfer of Care Handoff Completed per policy Notes Mental Status: alert / awake / arousable Patient Amnestic to Procedure: Yes Nausea / Vomiting: adequately controlled Pain: adequately controlled Airway Patency, RR, SpO2: stable & adequate BP & HR: stable & adequate Hydration State: stable & adequate Anesthetic Complications: no major complications apparent and Pt Satisfied with anesthetic care Notes: The patient is awake and more comfortable than he was preoperatively. His vital signs are stable at his baseline.
[2020-01-28] MEDS: FLUTICASONE/VILANTEROL 100/25MCG 14 PUFFS/INHALER INH SCH (13:59)
[2020-01-28] MEDS: FERROUS SULFATE 325 MG TAB PO SCH (14:00)
[2020-01-28] MEDS: MULTIVITAMIN TAB PO SCH (14:00)
[2020-01-28] MEDS: GABAPENTIN 300 MG CAP PO SCH ×3 (14:00→21:22)
[2020-01-28] MEDS: levETIRAcetam 250 MG TAB PO SCH ×2 (14:00→21:22)
[2020-01-28] MEDS: levETIRAcetam 500 MG TAB PO SCH ×2 (14:00→21:22)
[2020-01-28] MEDS: ESCITALOPRAM OXALATE 10 MG TAB PO SCH (14:00)
[2020-01-28] MEDS: PANTOprazole 40 MG in SYRINGE 0 ML IV SCH (14:00)
[2020-01-28] MEDS: AMLODIPINE BESYLATE 5 MG TAB PO SCH (14:00)
[2020-01-28] MEDS: METOCLOPRAMIDE HCL INJ 5 MG/ML 2 ML VIAL IV SCH ×3 (14:01→21:21)
--- NOTE | 2020-01-28 18:10 | Hospitalist Progress Note ---
Date of Service January 28, 2020 Assessment & Plan (1) Syncope and collapse: Syncopal Episode Attributed to hypoglycemia +/- seizure --MRI Brain:No acute intracranial abnormality. No abnormal enhancement. Mild scattered subcentimeter T2/FLAIR hyperintensities are noted within the subcorti guillermina white matter of the bilateral cerebral hemispheres, possibly representing early chronic microvascular ischemic disease. --EEG:This is a normal asleep routine EEG. There is no focal slowing or epi leptiform activity recorded. A repeat EEG when patient is more alert may be beneficial to better characterize the awake background if clinically indicated. --No arrhythmias on telemetry --Appreciate cardiology, neurology input --Avoid hypoglycemic episodes --Keppra increased to 750 mg BID --Advised to avoid driving until cleared by Neurology --No recurrence of seizure-like activity --Continue current medications (2) Diabetes mellitus type 2, uncontrolled: DM II Complicated by Neuropathy, Gastroparesis, Nephropathy. Hb A1C:11.5. Pharmacy consulted for inpatient glycemic management. Continue Insulin therapy Monitor BGs Hypoglycemic episodes likely secondary to ongoing nausea, vomiting Needs follow-up arranged with [facility] upon discharge IV fluids discontinued No recurrence of hypoglycemia today (3) Gastroparesis: Severe Gastroparesis H/O Recent removal of gastric stimulator --S/P EGD:The Z-line was irregular and was found 38 cm from the incisors, with columnar mucosa extending 0.5 cm above the GE junction. The esophagus was otherwise normal. There was patchy erythema in the fundus of the stomach, likely related to vomiting. There was a well healed surgical scar on the lesser curve of the stomach. The stomach was otherwise normal. The duodenum was normal. Biopsies taken from stomach and GE junction. No source of GI bleeding found. Continue Reglan 5 mg TID Received Emend Appreciate GI Input Anti-emetics PRN Needs replacement of gastric stimulator at [facility] upon discharge Pathology pending (4) Metabolic encephalopathy: Acute metabolic encephalopathy Likely secondary to hypoglycemia Resolved (5) Seizure disorder: H/O seizure disorder H/O Closed head injury. Last definite seizure 2 months ago. Possible seizure associated with loss of consciousness on presentation Appreciate Neurology Input EEG, MRI as above Continue Keppra Needs follow up with Neurology upon discharge in 2-3 weeks (6) Hypertension: BP Variable Continue clonidine patch lisinopril discontinued as developing hyperkalemia Started on Amlodipine IV hydralazine PRN Monitor Hyperkalemia Hold Lisinopril Low K diet Avoid Potassium supplements Monitor Chronic anemia Noted hemoglobin drop Partly dilutional with IV fluids Denies any bleeding issues S/P EGD Monitor H&H (7) Lung cancer: H/O non-small cell lung cancer S/P left upper lobectomy and chemotherapy Incomplete chemotherapy secondary to intolerance Follows with [facility] oncology 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 Donald Mendoza @ [facility]. CT findings discussed with him. Small pneumoperitoneum expected postop finding Gastric stimulator removed with with endoscopy and laparoscopy Needs follow-up with [facility] for replacement of gastric stimulator (9) DVT prophylaxis: SCDs Re: Anemia Code Status Full Code Disposition Expect to discharge home when stable (10) Discharge planning issues: Anticipated discharge to home. Medical follow-up with Dr. Lutz. Diabetes follow-up with [facility]. Admission and Anticipated Discharge Date Admission Date: January 24, 2020 Subjective Patient is seen and examined at bedside Had EGD earlier today No nausea/Vomiting today No significant abdominal pain Denies chest pain, shortness of breath, dizziness Review of Systems Review of Systems: All systems reviewed & are unremarkable except as noted in HPI & below Physical Exam Physical Exam: Physical Exam: Vitals signs as noted above General Appearance:Moderately built and nourished, no apparent distress Head: normocephalic, Atraumatic Eyes: normal inspection, EOMI Neck: supple, Trachea midline Respiratory/Chest: Normal breath sounds, CTA Cardiovascular: S1, S2, No murmur Abdomen/GI:Soft, Non tender, Bowel sounds present, + Abd wound in dressing Extremities/Musculoskelatal:normal inspection, Trace edema Neurologic/Psych:AAOX3, grossly no focal neurological deficits Skin: normal color, warm Results & Data Results & Data ([facility]) Vital Signs (Past 12 Hours) Vital Signs Temp Pulse Pulse Resp BP BP Pulse Ox 01/28/20 15:56 36.4 C L 74 20 123/70 93 01/28/20 15:47 90 01/28/20 12:15 36.4 C L 86 16 176/100 H 95 09/24/20 11:46 81 18 175/88 H 01/28/20 11:31 80 16 174/104 H 100 01/28/20 11:16 77 16 125/66 98 01/28/20 10:25 36.7 C 75 18 191/104 H 94 01/28/20 07:33 36.6 C 82 18 163/85 H 97 01/28/20 07:00 69 Laboratory Results Short CBC 01/28/20 Range/Units 07:17 WBC 5.51 (4.8-10.8) K/uL Hgb 7.4 L (14.0-18.0) g/dL Hct 23.0 L (42-52) % Plt Count 277 (130-400) K/uL BMP 01/28/20 07:17 Sodium 140 Potassium 5.3 H Chloride 108 H Carbon Dioxide 25 BUN 28 H D Creatinine 1.82 H Glucose 152 H Calcium 8.3 L (1) Diabetes mellitus type 2, uncontrolled Glycemic state: with hyperglycemia Qualified Code(s): E11.65 - Type 2 diabetes mellitus with hyperglycemia (2) Hypertension Hypertension type: essential hypertension Qualified Code(s): I10 - Essential (primary) hypertension
[2020-01-28] MEDS: fentaNYL 100 MCG/HR TDSY TD SCH (21:22)
[2020-01-28] MEDS: OXYCODONE HCL IR 5 MG TAB (IMMEDIATE RELEASE) PO PRN (21:34)
[2020-01-29] MEDS: CHECK CLONIDINE PATCH PLACEMENT SCH ×2 (01:18→07:39)
[2020-01-29] MEDS: CHECK FENTANYL PATCH PLACEMENT SCH ×2 (01:18→07:39)
[2020-01-29] MEDS: INSULIN HUMAN REGULAR SC SCH ×3 (01:20→12:19)
[2020-01-29 06:58] LABS: Hemoglobin 7.7 g/dL (14.0-18.0)
[2020-01-29 07:28] LABS: BUN Creatinine Ratio 14.6 (10-20); Calcium 8.4 mg/dl (8.5-10.1); Creatinine Clr Calc Pharmacy 48.8 ml/min; Est GFR (African American) 46.8; Est GFR (Non-African American) 40.4; Potassium 4.6 mmol/L (3.5-5.1)
[2020-01-29] MEDS: OXYCODONE HCL IR 5 MG TAB (IMMEDIATE RELEASE) PO PRN (07:33)
[2020-01-29] MEDS: ONDANSETRON INJ 2 MG/ML 2 ML VIAL IV PRN (07:33)
[2020-01-29] MEDS: FERROUS SULFATE 325 MG TAB PO SCH (07:41)
[2020-01-29] MEDS: levETIRAcetam 250 MG TAB PO SCH (07:41)
[2020-01-29] MEDS: MULTIVITAMIN TAB PO SCH (07:42)
[2020-01-29] MEDS: ESCITALOPRAM OXALATE 10 MG TAB PO SCH (07:42)
[2020-01-29] MEDS: GABAPENTIN 300 MG CAP PO SCH ×2 (07:43→13:38)
[2020-01-29] MEDS: AMLODIPINE BESYLATE 5 MG TAB PO SCH (07:43)
[2020-01-29] MEDS: levETIRAcetam 500 MG TAB PO SCH (07:45)
[2020-01-29] MEDS: FLUTICASONE/VILANTEROL 100/25MCG 14 PUFFS/INHALER INH SCH (07:46)
[2020-01-29] MEDS ORDERED: PANTOprazole 40 MG TAB PO SCH (09:00)
[2020-01-29] MEDS: METOCLOPRAMIDE HCL INJ 5 MG/ML 2 ML VIAL IV SCH ×2 (10:23→13:38)
--- NOTE | 2020-01-29 13:17 | Hospitalist Progress Note ---
Date of Service January 29, 2020 Assessment & Plan (1) Syncope and collapse: Syncopal Episode Attributed to hypoglycemia +/- seizure --MRI Brain:No acute intracranial abnormality. No abnormal enhancement. Mild scattered subcentimeter T2/FLAIR hyperintensities are noted within the subcorti guillermina white matter of the bilateral cerebral hemispheres, possibly representing early chronic microvascular ischemic disease. --EEG:This is a normal asleep routine EEG. There is no focal slowing or epi leptiform activity recorded. A repeat EEG when patient is more alert may be beneficial to better characterize the awake background if clinically indicated. --No arrhythmias on telemetry --Appreciate cardiology, neurology input --Avoid hypoglycemic episodes --Keppra increased to 750 mg BID --Advised to avoid driving until cleared by Neurology --No recurrence of seizure-like activity --Needs follow up with Neurology upon discharge (2) Diabetes mellitus type 2, uncontrolled: DM II Complicated by Neuropathy, Gastroparesis, Nephropathy. Hb A1C:11.5. Pharmacy consulted for inpatient glycemic management. Continue Insulin therapy Monitor BGs Hypoglycemic episodes likely secondary to ongoing nausea, vomiting Needs follow-up arranged with [facility] upon discharge IV fluids discontinued No recurrence of hypoglycemia for last 48 hrs Planned to be transitioned to Insulin pump as outpatient (3) Gastroparesis: Severe Gastroparesis H/O Recent removal of gastric stimulator --S/P EGD:The Z-line was irregular and was found 38 cm from the incisors, with columnar mucosa extending 0.5 cm above the GE junction. The esophagus was otherwise normal. There was patchy erythema in the fundus of the stomach, likely related to vomiting. There was a well healed surgical scar on the lesser curve of the stomach. The stomach was otherwise normal. The duodenum was normal. Biopsies taken from stomach and GE junction. No source of GI bleeding found. Continue Reglan 5 mg TID Received Emend Appreciate GI Input Anti-emetics PRN Pathology pending Needs replacement of gastric stimulator at [facility] upon discharge (4) Metabolic encephalopathy: Acute metabolic encephalopathy Likely secondary to hypoglycemia Resolved (5) Seizure disorder: H/O seizure disorder H/O Closed head injury. Last definite seizure 2 months ago. Possible seizure associated with loss of consciousness on presentation Appreciate Neurology Input EEG, MRI as above Continue Keppra Needs follow up with Neurology upon discharge in 2-3 weeks (6) Hypertension: BP Variable Continue clonidine patch lisinopril discontinued as developing hyperkalemia/CKD Continue Amlodipine IV hydralazine PRN Monitor Hyperkalemia Lisinopril discontinued given CKD, hyperkalemia Low K diet Avoid Potassium supplements Resolved Chronic anemia Noted hemoglobin drop Partly dilutional with IV fluids Denies any bleeding issues S/P EGD Monitor H&H (7) Lung cancer: H/O non-small cell lung cancer S/P left upper lobectomy and chemotherapy Incomplete chemotherapy secondary to intolerance Follows with [facility] oncology 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 Donald Mendoza @ [facility]. CT findings discussed with him. Small pneumoperitoneum expected postop finding Gastric stimulator removed with with endoscopy and laparoscopy Needs follow-up with [facility] for replacement of gastric stimulator (9) DVT prophylaxis: SCDs Re: Anemia Code Status Full Code Disposition Expect to discharge home when stable (10) Discharge planning issues: Anticipated discharge to home. Medical follow-up with Dr. Lutz. Diabetes follow-up with [facility]. Admission and Anticipated Discharge Date Admission Date: January 24, 2020 Subjective Patient is seen and examined at bedside States feeling well today No new complaints Discussed with gastroenterology today Denies chest pain, shortness of breath, dizziness Had minimal vomiting today but later was able to tolerate food Review of Systems Review of Systems: All systems reviewed & are unremarkable except as noted in HPI & below Physical Exam Physical Exam: Physical Exam: Vitals signs as noted above General Appearance:Moderately built and nourished, no apparent distress Head: normocephalic, Atraumatic Eyes: normal inspection, EOMI Neck: supple, Trachea midline Respiratory/Chest: Normal breath sounds, CTA Cardiovascular: S1, S2, No murmur Abdomen/GI:Soft, Non tender, Bowel sounds present, + Abd wound in dressing Extremities/Musculoskelatal:normal inspection, Trace edema Neurologic/Psych:AAOX3, grossly no focal neurological deficits Skin: normal color, warm Results & Data Results & Data ([facility]) Vital Signs (Past 12 Hours) Vital Signs Temp Pulse Pulse Resp BP BP Pulse Ox 01/29/20 12:01 36.9 C 84 18 160/80 H 98 01/29/20 08:08 36.7 C 89 18 180/97 H 95 01/29/20 08:00 84 01/29/20 04:42 36.8 C 88 18 122/75 96 Laboratory Results Short CBC 01/29/20 Range/Units 06:12 Hgb 7.7 L (14.0-18.0) g/dL Hct 24.0 L (42-52) % BMP 01/29/20 06:12 Sodium 141 Potassium 4.6 Chloride 109 H Carbon Dioxide 27 BUN 27 H Creatinine 1.85 H Glucose 83 Calcium 8.4 L (1) Diabetes mellitus type 2, uncontrolled Glycemic state: with hyperglycemia Qualified Code(s): E11.65 - Type 2 diabetes mellitus with hyperglycemia (2) Hypertension Hypertension type: essential hypertension Qualified Code(s): I10 - Essential (primary) hypertension
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
[2020-01-29 15:56] VITALS: BP 163/84; TEMP 99.5; O2SAT 96
[2020-01-29 16:03] VITALS: PULSE 94
--- NOTE | 2020-02-02 11:43 | Communication Note ---
Date of Service: February 02, 2020 PenCTOT DL-13 form completed and forwarded regarding loss of consciousness and recent seizures.
== END 2020-01-29 15:00 | disposition home health service (06) | DRG 637 ==
LOC: ED 22:06 → SUATTDRO 01-24 03:04 → 2S 01-24 03:04

== ENCOUNTER 2020-12-19 23:52 | Inpatient (IN) ==
[2020-12-20] MEDS ORDERED: ACETAMINOPHEN 1,000 MG/100 ML VIAL IV STA (00:14)
[2020-12-20] MEDS ORDERED: ONDANSETRON INJ 2 MG/ML 2 ML VIAL IV STA (00:14)
[2020-12-20] MEDS ORDERED: dexAMETHasone**PF** 10 MG/ML VIAL IV ONE (00:14)
[2020-12-20] MEDS ORDERED: SODIUM CHLORIDE 0.9% 1000ML 1,000 ML IV SCH (00:15)
[2020-12-20 01:06] LABS: Basophils # (auto) 0.01 K/uL (0-0.2); Basophils % (auto) 0.2 %; Eosinophils # (auto) 0.66 K/uL (0-0.5); Eosinophils % (auto) 10.3 %; Hematocrit (blood only) 29.5 % (42-52); Hemoglobin 10.2 g/dL (14.0-18.0); Immature Granulocytes # (auto) 0.01 K/uL (0.00-0.02); Immature Granulocytes % (auto) 0.2 %; Lymphocytes # (auto) 1.65 K/uL (1.2-3.4); Lymphocytes % (auto) 25.7 %; Mean Corpuscular Hemoglobin 29.8 pg (25-34); Mean Corpuscular Hgb Conc 34.6 g/dL (32-36); Mean Corpuscular Volume 86.3 fL (80-100); Mean Platelet Volume 10.2 fL (7.4-10.4); Monocytes # (auto) 0.45 K/uL (0.11-0.59); Neutrophils # (auto) 3.63 K/uL (1.4-6.5); Neutrophils % (auto) 56.6 %; Platelet Count 296 K/uL (130-400); RDW Coefficient of Variation 12.7 % (11.5-14.5); RDW Standard Deviation 40.6 fL (36.4-46.3); Red Blood Count 3.42 M/uL (4.7-6.1); White Blood Count 6.41 K/uL (4.8-10.8)
[2020-12-20 01:31] LABS: Alanine Aminotransferase 16 U/L (12-78); Albumin Level 2.3 gm/dl (3.4-5.0); Aspartate Aminotransferase 19 U/L (15-37); BUN Creatinine Ratio 7.4 (10-20); Blood Urea Nitrogen 17 mg/dl (7-18); Calcium 7.7 mg/dl (8.5-10.1); Carbon Dioxide 21 mmol/L (21-32); Chloride 108 mmol/L (98-107); Creatinine Clr Calc Pharmacy 36.2 ml/min; Est GFR (African American) 37.1 ml/min; Glucose 209 mg/dl (70-99); Lipase 42 U/L (73-393); Magnesium 1.4 mg/dl (1.8-2.4); Potassium 5.1 mmol/L (3.5-5.1); Sodium 133 mmol/L (136-145)
[2020-12-20 01:36] LABS: Albumin Globulin Ratio 0.5 (0.9-2); Alkaline Phosphatase 148 U/L (45-117); Bilirubin,Total 0.2 mg/dl (0.2-1); Globulin 4.6 gm/dl (2.5-4.0); Total Protein 6.9 gm/dl (6.4-8.2); Troponin I < 0.015 ng/ml (0-0.045)
[2020-12-20 02:29] LABS: D Dimer 1600 ug/L FEU (0-500)
[2020-12-20] MEDS ORDERED: oxyCODONE HCL IR 5 MG TAB (IMMEDIATE RELEASE) PO STA ×2 (03:29→05:28)
[2020-12-20] MEDS ORDERED: ONDANSETRON 4 MG OD TAB PO STA (03:29)
[2020-12-20 04:16] LABS: Appearance Urine Clear (Clear); Bacteria Urine Automated Negative (Negative); Bilirubin Urine Negative (Negative); Blood Urine 1+ (Negative); Cast Urine Automated 0 /lpf (0-5); Color Urine Yellow; Glucose Urine UA 2+ (Negative); Ketones Urine Negative (Negative); Leukocyte Esterase Urine Negative (Negative); Nitrite Urine Negative (Negative); Protein Urine 3+ (Negative); RBC Urine Automated 0-4 /hpf (0-4); Urobilinogen Urine Negative (Negative); WBC Urine Automated 0 /hpf (0-5)
[2020-12-20] MEDS ORDERED: amLODIPine BESYLATE 5 MG TAB PO ONE (04:53)
--- NOTE | 2020-12-20 05:24 | History & Physical Report ---
Date of Service December 20, 2020 Assessment & Plan (1) SOB (shortness of breath): Plan: Rule out PE given abnormal D-dimer and malignancy history Hypertension, elevated secondary to illness Abdominal pain nausea vomiting diarrhea History gastroparesis status post gastric pacemaker Possible opioid withdrawal, history chronic pain on narcotics prior history confinement for opiate withdrawal secondary to running out of narcotic medications Rule out C. difficile ARF on CRI secondary to illness DM1, suboptimal control as of recent outpatient hemoglobin A1c of 11.11 June 2020 NSCLC stage III, status post surgery, incomplete chemotherapy secondary to intolerance, stable disease as per last oncology note from last month. Seizure disorder, stable on maintenance AED tx chronic anemia, hemoglobin at baseline Past tobacco abuse OBS Med telemetry VQ scan, LE Dopplers for PE work-up IV Heparin until PE ruled out Stool C. difficile Judicious narcotic use, suspect possible misuse (As per conversation with ER medication torpedo specialist, patient not forthcoming about information regarding his Fentanyl patch being switched to Morphine Sulfate ER twice daily by PCP last month due to Fentanyl cost issues.) Baseline UA, monitor creatinine response to IV fluids Basal insulin adjusted for clear liquid diet for now, ISS BG goal 110-140, update hemoglobin A1c DVT prophylaxis. Heparin Full code Text document was generated using [employer] voice recognition software. It may contain grammatical or spelling errors. Kindly contact undersigned for clarification of any documentation item in question. History of Present Illness Chief Complaint: Shortness of breath, nausea vomiting diarrhea Primary Care Provider: Dr. Whitten History obtained from patient and records. Medical history significant for COPD, NSCLC stage III, status post surgery, incomplete chemotherapy secondary to intolerance, IBD, gastroparesis status post gastric pacemaker, chronic pain on narcotics, HTN, DM1, DM neuropathy, past tobacco abuse, CRI (baseline creatinine 2), chronic anemia (baseline hemoglobin 9), seizure disorder as per records, hx neurogenic bladder as per records. Last [facility] confinement January 2020 syncope versus hypoglycemic seizure. Keppra dose increased on discharge. Patient had run out of morphine ER which he takes for chronic pain from his neuropathy. Patient admitted at [facility] last month for possible opioid withdrawal. 4 days history of abdominal discomfort, nausea, vomiting, diarrhea symptoms with fever chills. Shortness of breath without chest pain or unusual cough symptoms. Worsening generalized pain. Achy headache symptoms. Patient consulted ER for evaluation. Medical History as above Surgical History : Knee surgery, thorascopy, lymphadenectomy, lung lobectomy, tonsillectomy/adenoidectomy Family History : Lung cancer, diabetes, renal cell carcinoma Personal/Social history : Past tobacco abuse, no EtOH intake, disabled Allergies Allergy/AdvReac Type Severity Reaction Status Date / Time bee venom protein (honey bee) Allergy Mild SWELLING Verified 12/20/20 07:02 AT SITE, SOB Penicillins Allergy Unknown "SINCE Verified 12/20/20 07:02 "-Amoxicillin cat dander Allergy Unknown Verified 12/20/20 07:02 Home Medications Medication Instructions Recorded Confirmed Type albuterol sulfate 90 mcg/actuation 2 puff INHALATION Q4H PRN 05/05/18 12/20/20 History aerosol inhaler epinephrine 0.3 mg/0.3 mL 0.3 mg IM Q3H PRN 05/05/18 12/20/20 History injection, auto-injector (EpiPen) gabapentin 300 mg capsule 300 mg PO TID 05/05/18 12/20/20 History insulin glargine 100 unit/mL (3 7 unit SUBCUT HS 05/05/18 12/20/20 History mL) subcutaneous pen (Basaglar KwikPen U-100 Insulin) insulin lispro 100 unit/mL 1 sliding scale dose SUBCUT UD 05/05/18 12/20/20 History subcutaneous cartridge (Humalog U-100 Insulin) multivitamin 1 tab PO QAM 05/05/18 12/20/20 History oxycodone 10 mg tablet 10 mg PO Q4H PRN 05/05/18 12/20/20 History pantoprazole 40 mg tablet,delayed 40 mg PO QAM 05/05/18 12/20/20 History release clonidine 0.2 mg/24 hr weekly 1 patch TRANSDERMAL WK 01/23/20 12/20/20 History transdermal patch escitalopram oxalate 10 mg tablet 10 mg PO DAILY 01/24/20 12/20/20 History (Lexapro) fluticasone 250 mcg-salmeterol 50 1 inh INHALATION BID 01/24/20 12/20/20 History mcg/dose blistr powdr for inhalation (Wixela Inhub) amlodipine 5 mg tablet (Norvasc) 5 mg PO QAM #30 tab 01/29/20 12/20/20 Rx levetiracetam 750 mg tablet 750 mg PO BID 30 Days #60 tab 01/29/20 12/20/20 Rx (Keppra) MorphaBond ER 60 mg PO BID 12/20/20 12/20/20 History cyclobenzaprine 5 mg tablet 5 mg PO TID PRN 12/20/20 12/20/20 History ondansetron 8 mg disintegrating 8 mg PO Q8H PRN 12/20/20 12/20/20 History tablet Past Med/Surg History Medical History (Updated 12/20/20 @ 08:02 by Darian Chinchilla MD) Acute dyspnea Acute hyponatremia IVAN (acute kidney injury) Anemia Chest pain No current chest pain...related to reflux per patient Chronic pain COPD (chronic obstructive pulmonary disease) Diabetes mellitus type 2, uncontrolled Diabetic autonomic neuropathy Diabetic peripheral neuropathy Discharge planning issues DVT prophylaxis Gastroparesis "s/p gastric stimulator" Hypertension Hypomagnesemia Intractable nausea and vomiting 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 One 1 mm polyp in the ascending colon resected. One benign appearing 1 mm polyp in the rectum resected. Internal hemorrhoids; Dr. Demarco" H/O esophagogastroduodenoscopy "01/26/2015- [place] Grade B reflux esophagitis, gastritis; Dr. Major" History of cholecystectomy History of tonsillectomy and adenoidectomy Hx of total knee arthroplasty S/P lobectomy of lung "left upper lobectomy for adenoCa" On 08/05/16 16:30 Edie Mcfarland wrote "L side @ [facility] 05/25/16" Status post insertion of intrathecal pump explanted Family History Other Family history non-contributory Social History Smoking Status: Former smoker Second Hand Exposure: No; Do You Dip or Chew Tobacco: No; Tobacco Cessation Education Requested by Patient: No Hx Alcohol Use: Yes Alcohol type: beer Hx Substance Use: Yes Last Used Substance: Just Prior to Arrival Last Used Substance Other:: Four hours ago Substance Use Type Other:: fentanyl patch 24hrs a day-refused removal of 2 patches Preferred Language: Togolese Communication Ability: Effective Systems Coordinator Required: No Beliefs That Will Affect Care: Mandaeism Mandaeism Beliefs: Gnosticism Current Living Situation: Alone Other Information That Helps Us Care for You: No Feels Safe at Home: Yes Safety Concerns: Afraid for Self Assistive Devices: Glasses Review of Systems Review of Systems: As per HPI, all 10 systems reviewed, all other ROS negative Physical Exam Physical Exam: GENERAL: uncomfortable, no respiratory distress SKIN: Pallor, warm HEENT: Pale palpebral conjunctivae, no ptosis, dry buccal mucosa NECK : Supple, no tenderness CHEST : Decreased breath sounds, no tenderness HEART : RRR, no obvious murmurs ABDOMEN: Some distention, nontender EXTREMITIES : No LE swelling/tenderness, no other conspicuous deformities noted NEUROLOGIC : Coherent, no facial asymmetry, no other gross focality Results & Data Results & Data ([facility]) Vital Signs (Past 12 Hours) Vital Signs Temp Pulse Pulse Resp BP BP Pulse Ox 12/20/20 04:30 76 18 202/129 H 100 12/20/20 04:00 78 18 200/128 H 100 12/20/20 03:36 87 20 211/151 H 100 12/20/20 02:40 81 20 195/136 H 99 12/19/20 23:55 36.3 C L 96 H 20 191/118 H 100 Laboratory Results Laboratory Results WBC 6.41 K/uL (4.8-10.8) 12/20/20 00:50 RBC 3.42 M/uL (4.7-6.1) L 12/20/20 00:50 Hgb 10.2 g/dL (14.0-18.0) L 12/20/20 00:50 Hct 29.5 % (42-52) L 12/20/20 00:50 MCV 86.3 fL (80-100) 12/20/20 00:50 MCH 29.8 pg (25-34) 12/20/20 00:50 MCHC 34.6 g/dL (32-36) 12/20/20 00:50 RDW Std Deviation 40.6 fL (36.4-46.3) 12/20/20 00:50 RDW Coeff of Rik 12.7 % (11.5-14.5) 12/20/20 00:50 Plt Count 296 K/uL (130-400) 12/20/20 00:50 MPV 10.2 fL (7.4-10.4) 12/20/20 00:50 Immature Gran % (Auto) 0.2 % 12/20/20 00:50 Neut % (Auto) 56.6 % 12/20/20 00:50 Lymph % (Auto) 25.7 % 12/20/20 00:50 Gaston % (Auto) 7.0 % 12/20/20 00:50 Eos % (Auto) 10.3 % 12/20/20 00:50 Baso % (Auto) 0.2 % 12/20/20 00:50 Neut # (Auto) 3.63 K/uL (1.4-6.5) 12/20/20 00:50 Lymph # (Auto) 1.65 K/uL (1.2-3.4) 12/20/20 00:50 Gaston # (Auto) 0.45 K/uL (0.11-0.59) 12/20/20 00:50 Eos # (Auto) 0.66 K/uL (0-0.5) H 12/20/20 00:50 Baso # (Auto) 0.01 K/uL (0-0.2) 12/20/20 00:50 Immature Gran # (Auto) 0.01 K/uL (0.00-0.02) 12/20/20 00:50 D-Dimer 1600 ug/L FEU (0-500) H* 12/20/20 00:50 Sodium 133 mmol/L (136-145) L 12/20/20 00:50 Potassium 5.1 mmol/L (3.5-5.1) 12/20/20 00:50 Chloride 108 mmol/L (98-107) H 12/20/20 00:50 Carbon Dioxide 21 mmol/L (21-32) 12/20/20 00:50 Anion Gap 4.0 (3-11) 12/20/20 00:50 BUN 17 mg/dl (7-18) 12/20/20 00:50 Creatinine 2.23 mg/dl (0.6-1.4) H 12/20/20 00:50 Est Cr Clr Drug Dosing 36.2 ml/min 12/20/20 00:50 Est GFR ( Amer) 37.1 ml/min 12/20/20 00:50 Est GFR (Non-Af Amer) 32.0 ml/min 12/20/20 00:50 BUN/Creatinine Ratio 7.4 (10-20) L 12/20/20 00:50 Glucose 209 mg/dl (70-99) H 12/20/20 00:50 Calcium 7.7 mg/dl (8.5-10.1) L 12/20/20 00:50 Magnesium 1.4 mg/dl (1.8-2.4) L 12/20/20 00:50 Total Bilirubin 0.2 mg/dl (0.2-1) 12/20/20 00:50 AST 19 U/L (15-37) 12/20/20 00:50 ALT 16 U/L (12-78) 12/20/20 00:50 Alkaline Phosphatase 148 U/L (45-117) H 12/20/20 00:50 Troponin I < 0.015 ng/ml (0-0.045) 12/20/20 00:50 Total Protein 6.9 gm/dl (6.4-8.2) 12/20/20 00:50 Albumin 2.3 gm/dl (3.4-5.0) L 12/20/20 00:50 Globulin 4.6 gm/dl (2.5-4.0) H 12/20/20 00:50 Albumin/Globulin Ratio 0.5 (0.9-2) L 12/20/20 00:50 Lipase 42 U/L (73-393) L 12/20/20 00:50 Urine Color Yellow 12/20/20 04:05 Urine Appearance Clear (Clear) 12/20/20 04:05 Urine pH 7.0 (4.5-7.5) 12/20/20 04:05 Ur Specific Dewart 1.010 (1.000-1.030) 12/20/20 04:05 Urine Protein 3+ (Negative) H 12/20/20 04:05 Urine Glucose (UA) 2+ (Negative) H 12/20/20 04:05 Urine Ketones Negative (Negative) 12/20/20 04:05 Urine Blood 1+ (Negative) H 12/20/20 04:05 Urine Nitrite Negative (Negative) 12/20/20 04:05 Urine Bilirubin Negative (Negative) 12/20/20 04:05 Urine Urobilinogen Negative (Negative) 12/20/20 04:05 Ur Leukocyte Esterase Negative (Negative) 12/20/20 04:05 Urine WBC (Auto) 0 /hpf (0-5) 12/20/20 04:05 Urine RBC (Auto) 0-4 /hpf (0-4) 12/20/20 04:05 U Hyaline Cast (Auto) 0 /lpf (0-5) 12/20/20 04:05 U Epithel Cells (Auto) 5-10 /lpf (0-5) H 12/20/20 04:05 Urine Bacteria (Auto) Negative (Negative) 12/20/20 04:05 COVID-19 Eval Order Covid19 at [facility] 12/20/20 01:00 SARS-CoV-2 (PCR) NEGATIVE (Negative) 12/20/20 01:[address] chest initial read: No thoracic aortic aneurysm. Heart normal in size. No pericardial fluid or thickening. Status post partial left upper lobectomy. Minimal left upper probable scarring. Multiple scattered 1-3 mmnoncalcified nodular densities in the bilateral lower lobes. Minimal platelike atelectasis or scarring. No focal lobar pneumonia. No pleural effusion or pneumothorax. No acute fracture is identified. Limited images of the upper abdomen straits postsurgical changes of stomach. Status post cholecystectomy. CT head initial read: No intracranial hemorrhage, mass-effect, edema, or hydrocephalus. Paranasal sinuses and mastoid air cells are clear. CT abdomen pelvis initial read: No acute abnormalityalong the GI tract. Appendix not definitivelyidentified. No secondarysigns of acute appendicitis. Cholecystectomy. Grosslyunremarkable liver, pancreas, spleen, and kidneys. No free fluid, fluid collection, or free air EKG as per my interpretation rate 85, NSR, normal axis, no ischemia
[2020-12-20] MEDS ORDERED: HYDROmorphone INJ 1 MG/ML SYRINGE IV STA (05:25)
[2020-12-20] MEDS ORDERED: hydrALAZINE HCL 20 MG/ML VIAL IV STA (05:31)
[2020-12-20 06:12] LABS: Partial Thromboplastin Ratio 1.1; Partial Thromboplastin Time 28.5 Seconds (21.0-31.0)
--- NOTE | 2020-12-20 06:59 | CT Scan Report ---
CT head/brain wo con CLINICAL HISTORY: 55 years-old Male with hill. Acute headache TECHNIQUE: Multiple axial CT images of the head were obtained without contrast. A dose lowering tech nique was utilized adhering to the principles of ALARA. COMPARISON: 01/24/[address] FINDINGS: No acute intracranial hemorrhage, midline shift, intracranial mass, hydrocephalus, territorial ischem ia or abnormal extra-axial collection. The calvarium is intact. The paranasal sinuses, mastoid air cells, and middle ear cavities are clear . IMPRESSION: No acute intracranial abnormality. ACT 112: Negative or not required by law. The above report was generated using voice recognition software. It may contain grammatical, syntax o r spelling errors. Electronically signed by: Oumar Metzger M.D. 12/20/2020 6:57 AM
[2020-12-20] MEDS ORDERED: Heparin IV Adult Wt-Based Low-Dose *NO* Bolus Protocol ONE (07:20)
[2020-12-20] MEDS ORDERED: INSULIN GLARGINE SOLOSTAR 100 UNITS/ML 3 ML PEN SC STA (07:26)
[2020-12-20] MEDS ORDERED: HEPARIN SODIUM/DEXTROSE 25,000 UNITS/500 ML BAG IV SCH (07:30)
--- NOTE | 2020-12-20 07:44 | CT Scan Report ---
ABDOMEN AND PELVIS CT WITHOUT CONTRAST CT DOSE: 962.12 mGy.cm HISTORY: Acute generalized abdominal pain with fever abd pain TECHNIQUE: Multiaxial CT images of the abdomen and pelvis were performed without contrast. A dose lo wering technique was utilized adhering to the principles of ALARA. COMPARISON STUDY: Chest CT of same day, CT abdomen and pelvis 01/24/2020 FINDINGS: Trace left pleural effusion. Minimal tree-in-bud nodules of the left lung base. No pneumato sis or pneumoperitoneum. The imaged inferior cardiac chambers are unremarkable. The unenhanced spleen, visualized pancreas, adrenal glands and liver are unremarkable. Cholecystectom y. Punctate nonobstructing calculus of the inferior pole left kidney. Kidneys are otherwise unremarka ble. No ureteral calculi or hydronephrosis. Moderate distention of the urinary bladder. Mild prostame kaleb. No abdominal aortic aneurysm. There are a few scattered mildly prominent para-aortic lymph node s. Mild wall thickening of the distal esophagus. Gastric stimulator device is noted with leads overlying the distal stomach. Battery pack is present within the left paracentral mid to lower anterior abdome n. No bowel obstruction or bowel wall thickening. The appendix measures up to 9 mm transversely which is similar to comparison and does not appear to be inflamed. Scarring of the subcutaneous right ante rior abdomen. There is no acute fracture. Degenerative changes of the spine. Trace fluid of the right pericolic gutter. Mild generalized body wall and mesenteric edema, similar to comparison. IMPRESSION: 1. Punctate left renal calculus. No ureteral calculi or hydronephrosis. 2. Urinary bladder distention. 3. No bowel obstruction or bowel wall thickening. 4. Chronic findings as above. ACT 112: Negative or not required by law. The above report was generated using voice recognition software. It may contain grammatical, syntax o r spelling errors. Electronically signed by: Oumar Metzger M.D. 12/20/2020 7:42 AM
[2020-12-20] MEDS ORDERED: SODIUM CHLORIDE 0.9% 1000ML 1,000 ML IV ONE (07:51)
--- NOTE | 2020-12-20 08:47 | Ultrasound Report ---
BILATERAL LOWER EXTREMITY VENOUS DOPPLER HISTORY: Abnormal d-dimer. Assess for DVT. COMPARISON STUDY: None. FINDINGS: There is normal compressibility, flow, and augmentation within the bilateral lower extremit y deep venous systems. IMPRESSION: No DVT within the right or left lower extremity. ACT 112: Negative or not required by law. Electronically signed by: Danilo Langley M.D. 12/20/2020 8:46 AM
--- NOTE | 2020-12-20 08:52 | CT Scan Report ---
CT chest diagnostic wo con CT DOSE: 265.27 mGy.cm CLINICAL HISTORY: 55 years-old Male with SOB. Hx lung resection. Acute shortness of breath with feve r. History of prior left upper lobectomy. TECHNIQUE: Multiaxial CT images of the chest were performed without contrast. A dose lowering techni que was utilized adhering to the principles of ALARA. COMPARISON: CT abdomen and pelvis of same day, chest CT 01/25/2020 FINDINGS: Unchanged 9 mm hypodense right thyroid nodule. There is no adenopathy. The heart is normal in size without pericardial effusion. Moderate coronary artery calcifications. No thoracic aortic ane urysm. Trace left pleural effusion. Postoperative changes of prior left upper lobectomy. Mild groundg lass opacities within the left midlung on image 147 are new from comparison. Additionally, there are subtle tree-in-bud nodules of the posterior basal segment left lower lobe. Resolution of the previous ly described right lung groundglass densities. There are no suspicious pulmonary nodules identified. There are a few punctate granulomata present. Central airways are patent. No acute process of the imaged upper abdomen. Gastric stimulator device. Cholecystectomy. Mild genera lized body wall edema. There is a destructive lytic lesion involving the lateral left ninth rib with adjacent soft tissue component. IMPRESSION: 1. Postoperative changes of prior left upper lobectomy 2. Mild groundglass densities with tree-in-bud nodules of the left lower lobe are suggestive of an in fectious or inflammatory pneumonitis with bronchiolitis. This finding was called/faxed to the emergen cy department at time of dictation. 3. Lytic destructive lesion of the left ninth rib is suggestive of osseous metastatic disease. This f inding was called/faxed to the emergency department at time of dictation. ACT 112: Negative or not required by law. Electronically signed by: Oumra Metzger M.D. 12/20/2020 8:51 AM
[2020-12-20 09:16] LABS: Partial Thromboplastin Ratio 1.2; Partial Thromboplastin Time 32.3 Seconds (21.0-31.0)
[2020-12-20] MEDS ORDERED: GLUCAGON FOR INJ 1 MG VIAL SQ PRN ×2 (09:17→13:41)
[2020-12-20] MEDS ORDERED: GLUCOSE 10 TABS/TUBE PO PRN ×2 (09:17→13:41)
[2020-12-20] MEDS ORDERED: DEXTROSE 50% 50 ML SYRINGE IV PRN (09:17)
[2020-12-20] MEDS ORDERED: GLUCOSE 40% GEL 15 GM TUBE PO PRN ×2 (09:17→13:41)
[2020-12-20] MEDS ORDERED: ACETAMINOPHEN 325 MG TAB PO PRN (09:17)
[2020-12-20 09:57] LABS: Estimated Average Glucose 280 mg/dl; Hemoglobin A1C 11.4 % (4.5-5.6)
--- NOTE | 2020-12-20 10:05 | Nuclear Medicine Report ---
NUCLEAR PULMONARY PERFUSION SCAN CLINICAL HISTORY: Dyspnea. Elevated d-dimer. COMPARISON STUDY: Chest x-ray dated 01/23/2020. Chest CT dated 12/20/2020. TECHNIQUE: Following the IV administration of 5.7 mCi of technetium 99m MAA. Perfusion images were ac quired in the anterior, posterior, and oblique projections. Note that interpretation is suboptimal wi thout current plain film correlate. FINDINGS: A chest x-ray performed 01/23/2020 shows volume loss in the left lung consistent with previous surgica l resection. No airspace consolidation or pleural effusion is identified. Volume loss in the left lung is consistent with previous resection. No perfusion defects are identifi ed on the perfusion imaging. IMPRESSION: There is no scintigraphic evidence of pulmonary embolus. ACT 112: Negative or not required by law. Electronically signed by: Russell Ty M.D. 12/20/2020 10:04 AM
[2020-12-20] MEDS: CHECK CLONIDINE PATCH PLACEMENT SCH ×3 (10:09→23:12)
[2020-12-20] MEDS: GABAPENTIN 300 MG CAP PO SCH ×3 (10:13→20:52)
[2020-12-20] MEDS: levETIRAcetam 250 MG TAB PO SCH ×2 (10:13→20:52)
[2020-12-20] MEDS: MULTIVITAMIN TAB PO SCH (10:14)
[2020-12-20] MEDS: PANTOprazole 40 MG TAB PO SCH (10:14)
[2020-12-20] MEDS: INSULIN ASPART 100 UNITS/ML 3 ML PEN SC SCH ×2 (10:18→12:06)
[2020-12-20] MEDS: MoRPHine SULFATE CR 60 MG TABCR PO SCH ×2 (10:31→20:52)
[2020-12-20] MEDS: FLUTICASONE/VILANTEROL 100/25MCG 14 PUFFS/INHALER INH SCH (10:32)
[2020-12-20] MEDS: MAGNESIUM SULFATE / D5W 1 GM/100 ML BAG IV SCH ×3 (11:15→15:13)
[2020-12-20] MEDS ORDERED: CARBOHYDRATES FOR HYPOGLYCEMIA PO PRN (13:41)
[2020-12-20] MEDS ORDERED: PHARMACY GLYCEMIC MGMT CONSULT PRN (13:41)
--- NOTE | 2020-12-20 16:53 | Electrocardiogram Report ---
Test Reason : Blood Pressure : / mmHG Vent. Rate : 084 BPM Atrial Rate : 084 BPM P-R Int : 152 ms QRS Dur : 088 ms QT Int : 376 ms P-R-T Axes : 048 004 017 degrees QTc Int : 444 ms Poor data quality, interpretation may be adversely affected Normal sinus rhythm Septal infarct (cited on or before 20-DEC-2020) Abnormal ECG When compared with ECG of 23-JAN-2020 22:41, No significant change was found Confirmed by Surya Polk ([id number]) on 12/20/2020 4:52:57 PM Referred By: REFERRED SELF Confirmed By:Surya Polk
[2020-12-20] MEDS: INSULIN HUMAN REGULAR SC SCH ×2 (17:32→21:00)
[2020-12-20] MEDS: PROMETHAZINE HCL 12.5 MG in SODIUM CHLORIDE 0.9% 50 ML IV PRN (18:36)
[2020-12-20] MEDS: HEPARIN SOD 5,000 UNIT/0.5 ML VIAL SQ SCH (20:52)
[2020-12-20] MEDS: INSULIN GLARGINE SOLOSTAR 100 UNITS/ML 3 ML PEN SC SCH (20:55)
[2020-12-21] MEDS ORDERED: INSULIN HUMAN REGULAR SC SCH
[2020-12-21] MEDS: oxyCODONE HCL IR 5 MG TAB (IMMEDIATE RELEASE) PO PRN ×4 (01:36→23:34)
--- NOTE | 2020-12-21 03:07 | Emergency Department Note ---
History of Present Illness General Chief complaint: Illness Stated complaint: NAUSEA,VOMITING,DIARRHEA,CHILLS,FEVER Time Seen by Provider: 12/20/20 00:06 History of Present Illness Maximum Pain Intensity: 8 This is a medically complicated 55-year-old male presenting to the emergency department for evaluation of nausea, vomiting, diarrhea, fever symptoms, and shortness of breath. The patient does have a history of lung cancer with lobectomy. He feels that he is unable to take a full breath for the past few days. The patient is vaccinated against COVID-19 and typically does not leave the house.. Taking a deep breath seems to exacerbate his symptoms. He rates his overall discomfort an 8/10 and has not taken anything [id number] for his discomfort. Home Medications Medication Instructions Recorded Confirmed Type albuterol sulfate 90 mcg/actuation 2 puff INHALATION Q4H PRN 05/05/18 12/20/20 History aerosol inhaler epinephrine 0.3 mg/0.3 mL 0.3 mg IM Q3H PRN 05/05/18 12/20/20 History injection, auto-injector (EpiPen) gabapentin 300 mg capsule 300 mg PO TID 05/05/18 12/20/20 History insulin glargine 100 unit/mL (3 7 unit SUBCUT HS 05/05/18 12/20/20 History mL) subcutaneous pen (Basaglar KwikPen U-100 Insulin) insulin lispro 100 unit/mL 1 sliding scale dose SUBCUT UD 05/05/18 12/20/20 History subcutaneous cartridge (Humalog U-100 Insulin) multivitamin 1 tab PO QAM 05/05/18 12/20/20 History oxycodone 10 mg tablet 10 mg PO Q4H PRN 05/05/18 12/20/20 History pantoprazole 40 mg tablet,delayed 40 mg PO QAM 05/05/18 12/20/20 History release clonidine 0.2 mg/24 hr weekly 1 patch TRANSDERMAL WK 01/23/20 12/20/20 History transdermal patch escitalopram oxalate 10 mg tablet 10 mg PO DAILY 01/24/20 12/20/20 History (Lexapro) fluticasone 250 mcg-salmeterol 50 1 inh INHALATION BID 01/24/20 12/20/20 History mcg/dose blistr powdr for inhalation (Wixela Inhub) amlodipine 5 mg tablet (Norvasc) 5 mg PO QAM #30 tab 01/29/20 12/20/20 Rx levetiracetam 750 mg tablet 750 mg PO BID 30 Days #60 tab 01/29/20 12/20/20 Rx (Keppra) MorphaBond ER 60 mg PO BID 12/20/20 12/20/20 History cyclobenzaprine 5 mg tablet 5 mg PO TID PRN 12/20/20 12/20/20 History ondansetron 8 mg disintegrating 8 mg PO Q8H PRN 12/20/20 12/20/20 History tablet Allergies Allergy/AdvReac Type Severity Reaction Status Date / Time bee venom protein (honey bee) Allergy Mild SWELLING Verified 12/20/20 07:02 AT SITE, SOB Penicillins Allergy Unknown "SINCE Verified 12/20/20 07:02 "-Amoxicillin cat dander Allergy Unknown Verified 12/20/20 07:02 Past Med/Surg History Medical History (Updated 12/21/20 @ 03:27 by Jose Mayo PA-C) Acute dyspnea Acute hyponatremia IVAN (acute kidney injury) Anemia Chest pain No current chest pain...related to reflux per patient Chronic pain COPD (chronic obstructive pulmonary disease) Diabetes mellitus type 2, uncontrolled Diabetic autonomic neuropathy Diabetic peripheral neuropathy Discharge planning issues DVT prophylaxis Gastroparesis "s/p gastric stimulator" Hypertension Hypomagnesemia Intractable nausea and vomiting 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 One 1 mm polyp in the ascending colon resected. One benign appearing 1 mm polyp in the rectum resected. Internal hemorrhoids; Dr. Demarco" H/O esophagogastroduodenoscopy "01/26/2015- [place] Grade B reflux esophagitis, gastritis; Dr. Major" History of cholecystectomy History of tonsillectomy and adenoidectomy Hx of total knee arthroplasty S/P lobectomy of lung "left upper lobectomy for adenoCa" On 08/05/16 16:30 Edie Mcfarland wrote "L side @ [facility] [place] Lo 05/25/16" Status post insertion of intrathecal pump explanted Family History Other Family history non-contributory Social History Smoking Status: Former smoker Second Hand Exposure: No; Do You Dip or Chew Tobacco: No; Tobacco Cessation Education Requested by Patient: No Hx Alcohol Use: Yes Alcohol type: beer Hx Substance Use: Yes Last Used Substance: Just Prior to Arrival Last Used Substance Other:: Four hours ago Substance Use Type Other:: fentanyl patch 24hrs a day-refused removal of 2 patches Preferred Language: Lebanese Communication Ability: Effective Head Of Art Required: No Beliefs That Will Affect Care: Catholic Catholic Beliefs: Hoahaoism Current Living Situation: Alone Other Information That Helps Us Care for You: No Feels Safe at Home: Yes Safety Concerns: Afraid for Self Assistive Devices: Brace/Splint/Immobilizer Review of Systems A total of 10 systems reviewed and were otherwise negative Physical Exam Vital Signs Vital Signs - 24 hr 12/20/20 04:00 12/20/20 04:30 12/20/20 05:00 Pulse Rate 78 76 75 Pulse Rate from SpO2 Sensor Respiratory Rate 18 18 18 Blood Pressure 200/128 H 202/129 H 199/129 H Blood Pressure Mean 152 153 152 Pulse Oximetry 100 100 100 12/20/20 05:30 12/20/20 06:00 12/20/20 06:30 Pulse Rate 77 82 Pulse Rate from SpO2 Sensor 86 Respiratory Rate 20 20 18 Blood Pressure 200/119 H 157/96 H 156/96 H Blood Pressure Mean 146 116 116 Pulse Oximetry 99 100 99 12/20/20 07:00 Pulse Rate Pulse Rate from SpO2 Sensor 86 Respiratory Rate Blood Pressure 153/90 H Blood Pressure Mean 111 Pulse Oximetry 99 VITALS: Vitals are noted on the nurse's note and reviewed by myself. Vital signs stable. GENERAL: Chronically ill-appearing white male. He is ill-appearing but nontoxic. HEAD: Normocephalic atraumatic. NECK: Supple without nuchal rigidity. No lymphadenopathy. No thyromegaly. Cervical spine is nontender. HEART: Regular rate and rhythm without murmurs gallops or rubs. LUNGS: Distant breath sounds throughout but generally clear ABDOMEN: Positive normal bowel sounds x 4. Soft, nontender, without masses or organomegaly. No guarding or rebound tenderness. MUSCULOSKELETAL: No muscle atrophy, erythema, or edema noted. Full range of motion in all extremities. NEURO: Patient was alert and oriented to person place and time. CN II through XII grossly intact. Course Administered Medications Clonidine HCl (Clonidine Hcl 0.2 Mg/24 Hr Transderm Sys) 1 patch TD Q7D@0600 DAMIR Stop: 01/19/21 05:59 Last Admin: 12/20/20 06:04 Dose: 1 patch Documented by: [id number] Fluticasone/Vilanterol (Fluticasone/Vilanterol 100/25mcg 14 Puffs/Inhaler) 1 puffs INH DAILY DAMIR Stop: 01/19/21 08:59 Last Admin: 12/20/20 10:32 Dose: 1 puffs Documented by: [id number] Gabapentin (Gabapentin 300 Mg Cap) 300 mg PO TID DAMIR Stop: 01/19/21 09:16 Last Admin: 12/20/20 20:52 Dose: 300 mg Documented by: [id number] Admin: 12/20/20 14:31 Dose: 300 mg Documented by: [id number] Admin: 12/20/20 10:13 Dose: 300 mg Documented by: [id number] Heparin Sodium (Porcine) (Heparin Sod 5,000 Unit/0.5 Ml Vial) 5,000 units SQ Q12 DAMIR Stop: 01/19/21 20:59 Last Admin: 12/20/20 20:52 Dose: 5,000 units Documented by: [id number] Promethazine HCl 12.5 mg/ (Sodium Chloride) 50.5 mls @ 202 mls/hr IV Q6H PRN PRN Reason: Nausea And Vomiting Stop: 01/19/21 09:16 Last Infusion: 12/20/20 18:59 Dose: 0 mls/hr Documented by: [id number] Admin: 12/20/20 18:36 Dose: 202 mls/hr Documented by: [id number] Insulin Glargine (Insulin Glargine Solostar 100 Units/Ml 3 Ml Pen) 5 units SC BID DAMIR Stop: 01/19/21 20:59 Last Admin: 12/20/20 20:55 Dose: 5 units Documented by: [id number] Cosigned by: [id number] Insulin Human Regular (Insulin Human Regular) 0 units SC ACHS [facility] Stop: 01/19/21 16:29 Last Admin: 12/20/20 21:00 Dose: 6 units Documented by: [id number] Cosigned by: [id number] Admin: 12/20/20 17:32 Dose: 5 units Documented by: [id number] Cosigned by: [id number] Levetiracetam (Levetiracetam 250 Mg Tab) 750 mg PO BID [facility] Stop: 01/19/21 09:16 Last Admin: 12/20/20 20:52 Dose: 750 mg Documented by: [id number] Admin: 12/20/20 10:13 Dose: 750 mg Documented by: [id number] Miscellaneous (Remove Clonidine Patch) 1 ea N/A [id number] [facility] Stop: 01/19/21 05:58 Last Admin: 12/20/20 10:15 Dose: Not Given Documented by: [id number] Miscellaneous (Check Clonidine Patch Placement) 1 ea N/A QS [facility] Stop: 01/19/21 07:59 Last Admin: 12/20/20 23:12 Dose: 1 ea Documented by: [id number] Admin: 12/20/20 16:36 Dose: 1 ea Documented by: [id number] Admin: 12/20/20 10:09 Dose: 1 ea Documented by: [id number] Morphine Sulfate (Morphine Sulfate Cr 60 Mg Tabcr) 60 mg PO BID [facility] Stop: 01/03/21 09:29 Last Admin: 12/20/20 20:52 Dose: 60 mg Documented by: [id number] Admin: 12/20/20 10:31 Dose: 60 mg Documented by: [id number] Multivitamins (Multivitamin Tab) 1 tab PO QAM [facility] Stop: 01/19/21 09:16 Last Admin: 12/20/20 10:14 Dose: 1 tab Documented by: [id number] Oxycodone HCl (Oxycodone Hcl Ir 5 Mg Tab (Immediate Release)) 10 mg PO Q4H PRN PRN Reason: Pain Stop: 01/03/21 09:16 Last Admin: 12/21/20 01:36 Dose: 10 mg Documented by: [id number] Pantoprazole Sodium (Pantoprazole 40 Mg Tab) 40 mg PO QAM DAMIR Stop: 01/19/21 09:16 Last Admin: 12/20/20 10:14 Dose: 40 mg Documented by: [id number] Discontinued Medications Amlodipine Besylate (Amlodipine Besylate 5 Mg Tab) 10 mg PO NOW ONE Stop: 12/20/20 04:54 Last Admin: 12/20/20 05:01 Dose: 10 mg Documented by: [id number] Dexamethasone Sodium Phosphate (DexamethasonePf 10 Mg/Ml Vial) 10 mg IV NOW ONE Stop: 12/20/20 00:15 Last Admin: 12/20/20 03:38 Dose: 10 mg Documented by: [id number] Heparin Sodium/Dextrose (Heparin Iv Adult Wt-Based Low-Dose *No* Bolus Protocol) 1 ea N/A ONE ONE; Protocol Stop: 12/20/20 07:21 Last Admin: 12/20/20 07:39 Dose: Not Given Documented by: [id number] Hydralazine HCl (Hydralazine Hcl 20 Mg/Ml Vial) 10 mg IV NOW STA Stop: 12/20/20 05:32 Last Admin: 12/20/20 05:37 Dose: 10 mg Documented by: [id number] Hydromorphone HCl (Hydromorphone Inj 1 Mg/Ml Syringe) 1 mg IV NOW STA Stop: 12/20/20 05:26 Last Admin: 12/20/20 05:34 Dose: Not Given Documented by: [id number] Sodium Chloride (Nss 1000ml) 1,000 mls @ 999 mls/hr IV .Q1H1M DAMIR Stop: 12/20/20 01:15 Last Infusion: 12/20/20 04:43 Dose: 0 mls/hr Documented by: [id number] Admin: 12/20/20 03:40 Dose: 999 mls/hr Documented by: [id number] Acetaminophen (Ofirmev) 1,000 mg in 100 mls @ 400 mls/hr IV NOW STA Stop: 12/20/20 00:28 Last Infusion: 12/20/20 03:54 Dose: 0 mls/hr Documented by: [id number] Admin: 12/20/20 03:39 Dose: 400 mls/hr Documented by: [id number] Heparin Sodium/Dextrose (Heparin Sodium/Dextrose) 25,000 units in 500 mls @ 17 mls/hr IV .Q24H DAMIR; Protocol Stop: 01/19/21 07:29 Last Titration: 12/20/20 11:15 Dose: 0 units/hr, 0 mls/hr Documented by: [id number] Cosigned by: [id number] Admin: 12/20/20 07:36 Dose: 17 units/hr, 0.3 mls/hr Documented by: [id number] Cosigned by: [id number] Magnesium Sulfate/Dextrose (Magnesium Sulfate / D5w) 1 gm in 100 mls @ 50 mls/hr IV Q2H DAMIR Stop: 12/20/20 13:48 Last Infusion: 12/20/20 17:49 Dose: 0 mls/hr Documented by: [id number] Admin: 12/20/20 15:13 Dose: 50 mls/hr Documented by: [id number] Infusion: 12/20/20 15:13 Dose: 50 mls/hr Documented by: [id number] Admin: 12/20/20 14:00 Dose: 50 mls/hr Documented by: [id number] Infusion: 12/20/20 13:15 Dose: 50 mls/hr Documented by: [id number] Admin: 12/20/20 11:15 Dose: 50 mls/hr Documented by: [id number] Sodium Chloride (Nss 1000ml) 1,000 mls @ 60 mls/hr IV .[id number] ONE Stop: 12/21/20 00:30 Last Admin: 12/20/20 10:07 Dose: 60 mls/hr Documented by: [id number] Insulin Aspart (Insulin Aspart 100 Units/Ml 3 Ml Pen) 0 units SC ACHS [facility] Stop: 01/19/21 09:16 Last Admin: 12/20/20 12:06 Dose: 8 units Documented by: [id number] Cosigned by: [id number] Admin: 12/20/20 10:18 Dose: 6 units Documented by: [id number] Cosigned by: [id number] Insulin Glargine (Insulin Glargine Solostar 100 Units/Ml 3 Ml Pen) 5 units SC NOW [facility] Stop: 12/20/20 07:27 Last Admin: 12/20/20 07:58 Dose: 5 units Documented by: [id number] Cosigned by: [id number] Insulin Human Regular (Insulin Human Regular) 0 units SC 0000 DAMIR Stop: 12/21/20 00:01 Last Admin: 12/20/20 23:45 Dose: Not Given Documented by: [id number] Cosigned by: [id number] Ondansetron HCl (Ondansetron Inj 2 Mg/Ml 2 Ml Vial) 4 mg IV NOW STA Stop: 12/20/20 00:15 Last Admin: 12/20/20 03:38 Dose: 4 mg Documented by: [id number] Ondansetron HCl (Ondansetron 4 Mg Od Tab) 4 mg PO NOW STA Stop: 12/20/20 03:30 Last Admin: 12/20/20 03:40 Dose: Not Given Documented by: [id number] Oxycodone HCl (Oxycodone Hcl Ir 5 Mg Tab (Immediate Release)) 10 mg PO NOW STA Stop: 12/20/20 03:30 Last Admin: 12/20/20 04:32 Dose: Not Given Documented by: [id number] Oxycodone HCl (Oxycodone Hcl Ir 5 Mg Tab (Immediate Release)) 10 mg PO NOW STA Stop: 12/20/20 05:29 Last Admin: 12/20/20 05:36 Dose: 10 mg Documented by: [id number] Medical Decision Making Differential Diagnosis Differential diagnosis includes, but is not limited to: Myocardial infarction, dysrhythmia, pericarditis, pneumothorax, aortic aneurysm/dissection, DVT/PE, anxiety, GERD, PUD, electrolyte imbalance, thyroid disorder, pneumonia, bronchitis, pancreatitis, and others Laboratory Data Result diagrams: 12/20/20 00:50 12/20/20 00:50 Lab Results 12/20/20 12/20/20 12/20/20 Range/Units 00:50 00:50 00:50 WBC 6.41 (4.8-10.8) K/uL RBC 3.42 L (4.7-6.1) M/uL Hgb 10.2 L (14.0-18.0) g/dL Hct 29.5 L (42-52) % MCV 86.3 (80-100) fL MCH 29.8 (25-34) pg MCHC 34.6 (32-36) g/dL RDW Std Deviation 40.6 (36.4-46.3) fL RDW Coeff of Rik 12.7 (11.5-14.5) % Plt Count 296 (130-400) K/uL MPV 10.2 (7.4-10.4) fL Immature Gran % (Auto) 0.2 % Neut % (Auto) 56.6 % Lymph % (Auto) 25.7 % [place] % (Auto) 7.0 % Eos % (Auto) 10.3 % Baso % (Auto) 0.2 % Neut # (Auto) 3.63 (1.4-6.5) K/uL Lymph # (Auto) 1.65 (1.2-3.4) K/uL [place] # (Auto) 0.45 (0.11-0.59) K/uL Eos # (Auto) 0.66 H (0-0.5) K/uL Baso # (Auto) 0.01 (0-0.2) K/uL Immature Gran # (Auto) 0.01 (0.00-0.02) K/uL APTT (21.0-31.0) Seconds PTT Ratio D-Dimer 1600 H* (0-500) ug/L FEU Sodium 133 L (136-145) mmol/L Potassium 5.1 (3.5-5.1) mmol/L Chloride 108 H (98-107) mmol/L Carbon Dioxide 21 (21-32) mmol/L Anion Gap 4.0 (3-11) BUN 17 (7-18) mg/dl Creatinine 2.23 H (0.6-1.4) mg/dl Est Cr Clr Drug Dosing 36.2 ml/min Est GFR ( Amer) 37.1 ml/min Est GFR (Non-Af Amer) 32.0 ml/min BUN/Creatinine Ratio 7.4 L (10-20) Glucose 209 H (70-99) mg/dl Estimat Average Glucose mg/dl Hemoglobin A1c (4.5-5.6) % Calcium 7.7 L (8.5-10.1) mg/dl Magnesium 1.4 L (1.8-2.4) mg/dl Total Bilirubin 0.2 (0.2-1) mg/dl AST 19 (15-37) U/L ALT 16 (12-78) U/L Alkaline Phosphatase 148 H (45-117) U/L Troponin I < 0.015 (0-0.045) ng/ml Total Protein 6.9 (6.4-8.2) gm/dl Albumin 2.3 L (3.4-5.0) gm/dl Globulin 4.6 H (2.5-4.0) gm/dl Albumin/Globulin Ratio 0.5 L (0.9-2) Lipase 42 L (73-393) U/L Urine Color Urine Appearance (Clear) Urine pH (4.5-7.5) Ur Specific [place] (1.000-1.030) Urine Protein (Negative) Urine Glucose (UA) (Negative) Urine Ketones (Negative) Urine Blood (Negative) Urine Nitrite (Negative) Urine Bilirubin (Negative) Urine Urobilinogen (Negative) Ur Leukocyte Esterase (Negative) Urine WBC (Auto) (0-5) /hpf Urine RBC (Auto) (0-4) /hpf U Hyaline Cast (Auto) (0-5) /lpf U Epithel Cells (Auto) (0-5) /lpf Urine Bacteria (Auto) (Negative) COVID-19 Eval Order SARS-CoV-2 (PCR) (Negative) 12/20/20 12/20/20 12/20/20 Range/Units 00:50 00:50 01:00 WBC (4.8-10.8) K/uL RBC (4.7-6.1) M/uL Hgb (14.0-18.0) g/dL Hct (42-52) % MCV (80-100) fL MCH (25-34) pg MCHC (32-36) g/dL RDW Std Deviation (36.4-46.3) fL RDW Coeff of Rik (11.5-14.5) % Plt Count (130-400) K/uL MPV (7.4-10.4) fL Immature Gran % (Auto) % Neut % (Auto) % Lymph % (Auto) % [place] % (Auto) % Eos % (Auto) % Baso % (Auto) % Neut # (Auto) (1.4-6.5) K/uL Lymph # (Auto) (1.2-3.4) K/uL [place] # (Auto) (0.11-0.59) K/uL Eos # (Auto) (0-0.5) K/uL Baso # (Auto) (0-0.2) K/uL Immature Gran # (Auto) (0.00-0.02) K/uL APTT 28.5 (21.0-31.0) Seconds PTT Ratio 1.1 D-Dimer (0-500) ug/L FEU Sodium (136-145) mmol/L Potassium (3.5-5.1) mmol/L Chloride (98-107) mmol/L Carbon Dioxide (21-32) mmol/L Anion Gap (3-11) BUN (7-18) mg/dl Creatinine (0.6-1.4) mg/dl Est Cr Clr Drug Dosing ml/min Est GFR ( Amer) ml/min Est GFR (Non-Af Amer) ml/min BUN/Creatinine Ratio (10-20) Glucose (70-99) mg/dl Estimat Average Glucose 280 mg/dl Hemoglobin A1c 11.4 H (4.5-5.6) % Calcium (8.5-10.1) mg/dl Magnesium (1.8-2.4) mg/dl Total Bilirubin (0.2-1) mg/dl AST (15-37) U/L ALT (12-78) U/L Alkaline Phosphatase (45-117) U/L Troponin I (0-0.045) ng/ml Total Protein (6.4-8.2) gm/dl Albumin (3.4-5.0) gm/dl Globulin (2.5-4.0) gm/dl Albumin/Globulin Ratio (0.9-2) Lipase (73-393) U/L Urine Color Urine Appearance (Clear) Urine pH (4.5-7.5) Ur Specific [place] (1.000-1.030) Urine Protein (Negative) Urine Glucose (UA) (Negative) Urine Ketones (Negative) Urine Blood (Negative) Urine Nitrite (Negative) Urine Bilirubin (Negative) Urine Urobilinogen (Negative) Ur Leukocyte Esterase (Negative) Urine WBC (Auto) (0-5) /hpf Urine RBC (Auto) (0-4) /hpf U Hyaline Cast (Auto) (0-5) /lpf U Epithel Cells (Auto) (0-5) /lpf Urine Bacteria (Auto) (Negative) COVID-19 Eval Order Covid19 at [facility] SARS-CoV-2 (PCR) (Negative) 12/20/20 12/20/20 Range/Units 01:00 04:05 WBC (4.8-10.8) K/uL RBC (4.7-6.1) M/uL Hgb (14.0-18.0) g/dL Hct (42-52) % MCV (80-100) fL MCH (25-34) pg MCHC (32-36) g/dL RDW Std Deviation (36.4-46.3) fL RDW Coeff of Rik (11.5-14.5) % Plt Count (130-400) K/uL MPV (7.4-10.4) fL Immature Gran % (Auto) % Neut % (Auto) % Lymph % (Auto) % [place] % (Auto) % Eos % (Auto) % Baso % (Auto) % Neut # (Auto) (1.4-6.5) K/uL Lymph # (Auto) (1.2-3.4) K/uL [place] # (Auto) (0.11-0.59) K/uL Eos # (Auto) (0-0.5) K/uL Baso # (Auto) (0-0.2) K/uL Immature Gran # (Auto) (0.00-0.02) K/uL APTT (21.0-31.0) Seconds PTT Ratio D-Dimer (0-500) ug/L FEU Sodium (136-145) mmol/L Potassium (3.5-5.1) mmol/L Chloride (98-107) mmol/L Carbon Dioxide (21-32) mmol/L Anion Gap (3-11) BUN (7-18) mg/dl Creatinine (0.6-1.4) mg/dl Est Cr Clr Drug Dosing ml/min Est GFR ( Amer) ml/min Est GFR (Non-Af Amer) ml/min BUN/Creatinine Ratio (10-20) Glucose (70-99) mg/dl Estimat Average Glucose mg/dl Hemoglobin A1c (4.5-5.6) % Calcium (8.5-10.1) mg/dl Magnesium (1.8-2.4) mg/dl Total Bilirubin (0.2-1) mg/dl AST (15-37) U/L ALT (12-78) U/L Alkaline Phosphatase (45-117) U/L Troponin I (0-0.045) ng/ml Total Protein (6.4-8.2) gm/dl Albumin (3.4-5.0) gm/dl Globulin (2.5-4.0) gm/dl Albumin/Globulin Ratio (0.9-2) Lipase (73-393) U/L Urine Color Yellow Urine Appearance Clear (Clear) Urine pH 7.0 (4.5-7.5) Ur Specific [place] 1.010 (1.000-1.030) Urine Protein 3+ H (Negative) Urine Glucose (UA) 2+ H (Negative) Urine Ketones Negative (Negative) Urine Blood 1+ H (Negative) Urine Nitrite Negative (Negative) Urine Bilirubin Negative (Negative) Urine Urobilinogen Negative (Negative) Ur Leukocyte Esterase Negative (Negative) Urine WBC (Auto) 0 (0-5) /hpf Urine RBC (Auto) 0-4 (0-4) /hpf U Hyaline Cast (Auto) 0 (0-5) /lpf U Epithel Cells (Auto) 5-10 H (0-5) /lpf Urine Bacteria (Auto) Negative (Negative) COVID-19 Eval Order SARS-CoV-2 (PCR) NEGATIVE (Negative) Imaging Data Radiologist's Impression: Chest CT 12/20/20 00:14 CT chest diagnostic wo con CT DOSE: 265.27 mGy.cm CLINICAL HISTORY: 55 years-old Male with SOB. Hx lung resection. Acute shortness of breath with fever. History of prior left upper lobectomy. TECHNIQUE: Multiaxial CT images of the chest were performed without contrast. A dose lowering technique was utilized adhering to the principles of ALARA. COMPARISON: CT abdomen and pelvis of same day, chest CT 01/25/2020 FINDINGS: Unchanged 9 mm hypodense right thyroid nodule. There is no adenopathy. The heart is normal in size without pericardial effusion. Moderate coronary artery calcifications. No thoracic aortic aneurysm. Trace left pleural effusion. Postoperative changes of prior left upper lobectomy. Mild groundglass opacities within the left midlung on image 147 are new from comparison. Additionally, there are subtle tree-in-bud nodules of the posterior basal segment left lower lobe. Resolution of the previously described right lung groundglass densities. There are no suspicious pulmonary nodules identified. There are a few punctate granulomata present. Central airways are patent. No acute process of the imaged upper abdomen. Gastric stimulator device. Cholecystectomy. Mild generalized body wall edema. There is a destructive lytic lesion involving the lateral left ninth rib with adjacent soft tissue component. IMPRESSION: 1. Postoperative changes of prior left upper lobectomy 2. Mild groundglass densities with tree-in-bud nodules of the left lower lobe are suggestive of an infectious or inflammatory pneumonitis with bronchiolitis. This finding was called/faxed to the emergency department at time of dictation. 3. 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 This finding was called/faxed to the emergency department at time of dictation. ACT 112: Negative or not required by law. Electronically signed by: Oumar Metzger M.D. 12/20/2020 8:51 AM Abdomen/Pelvis CT 12/20/20 05:[address] WITHOUT CONTRAST CT DOSE: 962.12 mGy.cm HISTORY: Acute generalized abdominal pain with fever abd pain TECHNIQUE: Multiaxial CT images of the abdomen and pelvis were performed without contrast. A dose lowering technique was utilized adhering to the principles of ALARA. COMPARISON STUDY: Chest CT of same day, CT abdomen and pelvis 01/24/2020 FINDINGS: Trace left pleural effusion. Minimal tree-in-bud nodules of the left lung base. No pneumatosis or pneumoperitoneum. The imaged inferior cardiac chambers are unremarkable. The unenhanced spleen, visualized pancreas, adrenal glands and liver are unremarkable. Cholecystectomy. Punctate nonobstructing calculus of the inferior pole left kidney. Kidneys are otherwise unremarkable. No ureteral calculi or hydronephrosis. Moderate distention of the urinary bladder. Mild prostamegaly. No abdominal aortic aneurysm. There are a few scattered mildly prominent para- aortic lymph nodes. Mild wall thickening of the distal esophagus. Gastric stimulator device is noted with leads overlying the distal stomach. Battery pack is present within the left paracentral mid to lower anterior abdomen. No bowel obstruction or bowel wall thickening. The appendix measures up to 9 mm transversely which is similar to comparison and does not appear to be inflamed. Scarring of the subcutaneous right anterior abdomen. There is no acute fracture. Degenerative changes of the spine. Trace fluid of the right pericolic gutter. Mild generalized body wall and mesenteric edema, similar to comparison. IMPRESSION: 1. Punctate left renal calculus. No ureteral calculi or hydronephrosis. 2. Urinary bladder distention. 3. No bowel obstruction or bowel wall thickening. 4. Chronic findings as above. ACT 112: Negative or not required by law. The above report was generated using voice recognition software. It may contain grammatical, syntax or spelling errors. Electronically signed by: Oumar Metzger M.D. 12/20/2020 7:[address] 12/20/20 05:25 CT head/brain wo con CLINICAL HISTORY: 55 years-old Male with hill. Acute headache TECHNIQUE: Multiple axial CT images of the head were obtained without contrast. A dose lowering technique was utilized adhering to the principles of ALARA. COMPARISON: 01/24/[address] FINDINGS: No acute intracranial hemorrhage, midline shift, intracranial mass, hydrocephalus, territorial ischemia or abnormal extra-axial collection. The calvarium is intact. The paranasal sinuses, mastoid air cells, and middle ear cavities are clear. IMPRESSION: No acute intracranial abnormality. ACT 112: Negative or not required by law. The above report was generated using voice recognition software. It may contain grammatical, syntax or spelling errors. Electronically signed by: Oumar Metzger M.D. 12/20/2020 6:57 AM ECG Data Attestation: I personally reviewed and interpreted this ECG as follows: Additional Comments: Normal sinus rhythm @84 bpm Septal infarct (cited on or before 20-DEC-2020) Abnormal ECG When compared with ECG of 23-JAN-2020 22:41, No significant change was found MDM Narrative Physical exam and history were performed. Nursing notes, EMR, and Medication List were personally reviewed. Patient appears to have shortness of breath symptoms bringing him to the ER. He has history of lung cancer with lobectomy and appears mildly ill but not toxic on exam. IV access was established and labs were obtained. The patient was hydrated with normal saline and given IV Tylenol and IV Decadron for his symptoms. He was sent to CT scan for noncontrast study of his chest as his creatinine is elevated. The patient's blood work is as above and was reviewed. He does not have a significantly elevated white blood cell count. He is mildly anemic at 10.2. He does not have gross electrolyte imbalance. Troponin x1 is negative. CT scan of the chest was initially reviewed by myself and [employer] without obvious acute findings. The patient's D-dimer is markedly elevated at 1600. On reevaluation the patient felt mildly better after treatment here in the ER. Overall he does not appear well for discharge home considering his history. He certainly may have pulmonary emboli causing his symptoms, and VQ scan needs to be considered. The case was discussed with the on-call [facility] hospitalist team who agreed to evaluate the patient here in the ER. Please see their dictation for further patient course, plan, and disposition. The chart was completed utilizing [employer] Speech Voice Recognition Software. Grammatical errors, random word insertions, pronoun errors, and incomplete sentences are an occasional consequence of this system due to software limitations, ambient noise, and hardware issues. Any formal questions or concerns about the content, text, or information contained within the body of this dictation should be directly addressed to the provider for clarification. . Impression & Plan SOB (shortness of breath), Elevated d-dimer, Acute renal insufficiency Discharge Plan Visit Data Chief Complaint: Illness Stated Complaint: NAUSEA,VOMITING,DIARRHEA,CHILLS,FEVER ED Provider: Jack Toney ED Midlevel Provider: Jose Mayo Discharge Problem: SOB (shortness of breath), Elevated d-dimer, Acute renal insufficiency Patient Disposition: Admitted As Inpatient Discharge Instructions Interventions: ED Discharge Assessment Last Done: 12/20/20 08:58
[2020-12-21] MEDS: PROMETHAZINE HCL 12.5 MG in SODIUM CHLORIDE 0.9% 50 ML IV PRN (07:16)
[2020-12-21 07:38] LABS: Basophils # (auto) 0.01 K/uL (0-0.2); Basophils % (auto) 0.1 %; Eosinophils # (auto) 0.07 K/uL (0-0.5); Immature Granulocytes # (auto) 0.02 K/uL (0.00-0.02); Immature Granulocytes % (auto) 0.3 %; Lymphocytes # (auto) 1.83 K/uL (1.2-3.4); Lymphocytes % (auto) 25.7 %; Mean Corpuscular Hgb Conc 33.3 g/dL (32-36); Mean Platelet Volume 9.9 fL (7.4-10.4); Monocytes # (auto) 0.56 K/uL (0.11-0.59); Monocytes % (auto) 7.9 %; Neutrophils # (auto) 4.64 K/uL (1.4-6.5); Platelet Count 312 K/uL (130-400); RDW Standard Deviation 41.5 fL (36.4-46.3); Red Blood Count 3.45 M/uL (4.7-6.1); White Blood Count 7.13 K/uL (4.8-10.8)
[2020-12-21] MEDS: FLUTICASONE/VILANTEROL 100/25MCG 14 PUFFS/INHALER INH SCH (08:07)
[2020-12-21] MEDS: HEPARIN SOD 5,000 UNIT/0.5 ML VIAL SQ SCH ×2 (08:08→21:25)
[2020-12-21] MEDS: levETIRAcetam 250 MG TAB PO SCH ×2 (08:08→21:35)
[2020-12-21] MEDS: CHECK CLONIDINE PATCH PLACEMENT SCH ×2 (08:08→15:08)
[2020-12-21] MEDS: GABAPENTIN 300 MG CAP PO SCH ×3 (08:08→21:24)
[2020-12-21 08:09] LABS: BUN Creatinine Ratio 9.5 (10-20); Calcium 8.4 mg/dl (8.5-10.1); Creatinine Clr Calc Pharmacy 33.9 ml/min; Est GFR (African American) 34.3 ml/min; Est GFR (Non-African American) 29.6 ml/min; Magnesium 2.2 mg/dl (1.8-2.4); Potassium 4.3 mmol/L (3.5-5.1)
[2020-12-21] MEDS: PANTOprazole 40 MG TAB PO SCH (08:09)
[2020-12-21] MEDS: MULTIVITAMIN TAB PO SCH (08:09)
[2020-12-21] MEDS: amLODIPine BESYLATE 5 MG TAB PO SCH (08:09)
[2020-12-21] MEDS: MoRPHine SULFATE CR 60 MG TABCR PO SCH ×2 (08:10→21:36)
[2020-12-21] MEDS: INSULIN GLARGINE SOLOSTAR 100 UNITS/ML 3 ML PEN SC SCH (09:18)
[2020-12-21] MEDS: INSULIN HUMAN REGULAR SC SCH ×4 (09:19→21:41)
--- NOTE | 2020-12-21 13:54 | Pharmacy Report ---
Pharmacy Glycemic Short Note 2 - Date of Service December 21, 2020 - Glycemic Short BSG Results (Last 24 hours): 12/20/20 12/20/20 12/20/20 16:24 20:32 23:35 Glucose POC Glucose 210 H 196 H 74 12/21/20 12/21/20 12/21/20 07:02 07:42 11:23 Glucose 224 H POC Glucose 214 H 283 H OUTPATIENT ANTIDIABETIC REGIMEN: * Basaglar 7 units HS, Humalog SSI * A1c 11.4% ASSESSMENT: * Patient admitted with shortness of breath, abdominal pain, N/V. Hx of gastroparesis s/sp gastric pacemaker. Type 1 DM at home with elevated A1c on admission. * Pharmacy consulted for glycemic management. Received total of 35 units of insulin yesterday, of which 10 units were basal insulin. Patient known to glycemic service from prior admissions. BSGs tend to be very labile, especially with having N/V * Fasting BSG 214 mg/dL - plan to titrate basal insulin slightly more today / increase 20% * Continue same CF/CR for now, BSGs trending down quickly yesterday 210-196-74 mg/dL PLAN FOR INPATIENT GLYCEMIC CONTROL: * Hold outpatient oral diabetes medications * Basal insulin - increase * Lantus 7 units SQ BID * Bolus insulin * NovoLog per scale ACHS or Q6hrs while NPO * Goal Range: Low 120 mg/dL - High 160 mg/dL * Correction Factor: 35 mg/dL/unit * Nutritional / Prandial insulin per carb ratio of 1 unit per 15 grams CHO consumed PLAN FOR DISCHARGE: * TBD
[2020-12-21] MEDS ORDERED: SODIUM CHLORIDE 0.9% 1000ML 500 ML IV ONE (15:34)
--- NOTE | 2020-12-21 15:57 | Hospitalist Progress Note ---
Date of Service December 21, 2020 Assessment & Plan (1) SOB (shortness of breath): Plan: Rule out PE given abnormal D-dimer and malignancy history VQ scan, LE Dopplers obtained for PE work-up Both negative therefore IV heparin was stopped Currently breathing on room air, denies any shortness of breath Hypertension, elevated on admission secondary to illness BP on 12/21 -on lower side, instructed nurse to take off clonidine patch, and wi ll give small bolus of normal saline Abdominal pain nausea vomiting diarrhea History gastroparesis status post gastric pacemaker Possible opioid withdrawal, history chronic pain on narcotics prior history confinement for opiate withdrawal secondary to running out of narcotic medications Rule out C. difficile, c. diff ordered - patient had no BM Judicious narcotic use, suspect possible misuse (As per conversation with ER medication internal medicine specialist, patient not forthcoming about information regarding his Fentanyl patch being switched to Morphine Sulfate ER twice daily by PCP last month due to Fentanyl cost issues.) 12/21 -Per nursing staff, patient was doing well earlier today, however in the afternoon became extremely somnolent Nursing staff concerned about misuse of opiates, checked patient's bag, found his home oxycodone (these were now taken by the staff) Patient also reported nausea again Continue closely monitor, respiratory status and hemodynamic status IVAN on CKD secondary to illness Baseline UA, monitor creatinine response to IV fluids UA on 12/20 -unremarkable Cr on 12/21 - Cr 2.4 (on admission 12/20 Cr 2.2) DM1 - suboptimal control as of recent outpatient hemoglobin A1c of 11.6 % June 2020 current Hgb A1c 11.4% - Basal insulin adjusted for clear liquid diet for now, ISS BG goal 110-140, update hemoglobin A1c NSCLC stage III, status post surgery, incomplete chemotherapy secondary to intolerance -stable disease as per last oncology note from last month Follows with Dr. 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 Heparin Full code Admission and Anticipated Discharge Date Admission Date: December 20, 2020 Subjective Patient seen in follow-up of shortness of breath, nausea Patient had a VQ scan and Dopplers done already yesterday, those were negative and therefore Heparin IV was stopped yesterday Per nurse, patient was doing okay earlier today however in the afternoon became extremely somnolent She then checked his bag and apparently patient has his own oxycodone in his bag, concerned that patient may have taken it On my evaluation, patient is somnolent however arousable, able to answer simple questions however not able to have a prolonged conversation Reports nausea on and off No chest pain or abdominal pain Also reports chronic back pain BP on lower side, took off clonidine patch, will give IVF Change from observation status to full admission Continue closely monitor, especially respiratory status and hemodynamic status Review of Systems Review of Systems: All systems reviewed & are unremarkable except as noted in Subjective Physical Exam Physical Exam: GENERAL: thin male somnolent, in no respiratory distress HEENT: NC, EOMI, pupils equal and constricted, pale palpebral conjunctivae NECK : Supple, no tenderness CHEST : decreased breath sounds, but overall CTAB HEART : RRR, no obvious murmurs ABDOMEN: soft, nontender, + bowel sounds EXTREMITIES : No LE swelling/tenderness, moves extremities NEUROLOGIC : Somnolent but arousable, able to answer questions appropriately however not able to have prolonged conversation, no facial asymmetry, moves extremities SKIN: pallor, warm Results & Data Results & Data ([facility]) Vital Signs (Past 12 Hours) Vital Signs Temp Pulse Pulse Resp BP BP Pulse Ox 12/21/20 15:25 36.5 C 75 18 89/54 L 91 12/21/20 15:11 73 12/21/20 11:04 36.5 C 74 16 111/72 97 12/21/20 07:55 89 18 162/90 H 100 12/21/20 07:07 76 Laboratory Results 12/21/20 12/21/20 12/21/20 Range/Units 11:23 07:42 07:02 WBC (4.8-10.8) K/uL RBC (4.7-6.1) M/uL Hgb (14.0-18.0) g/dL Hct (42-52) % MCV (80-100) fL MCH (25-34) pg MCHC (32-36) g/dL RDW Std Deviation (36.4-46.3) fL RDW Coeff of Rik (11.5-14.5) % Plt Count (130-400) K/uL MPV (7.4-10.4) fL Immature Gran % (Auto) % Neut % (Auto) % Lymph % (Auto) % Adair % (Auto) % Eos % (Auto) % Baso % (Auto) % Neut # (Auto) (1.4-6.5) K/uL Lymph # (Auto) (1.2-3.4) K/uL Adair # (Auto) (0.11-0.59) K/uL Eos # (Auto) (0-0.5) K/uL Baso # (Auto) (0-0.2) K/uL Immature Gran # (Auto) (0.00-0.02) K/uL Sodium 134 L (136-145) mmol/L Potassium 4.3 D (3.5-5.1) mmol/L Chloride 106 (98-107) mmol/L Carbon Dioxide 21 (21-32) mmol/L Anion Gap 8.0 (3-11) BUN 23 H (7-18) mg/dl Creatinine 2.38 H (0.6-1.4) mg/dl Est Cr Clr Drug Dosing 33.9 ml/min Est GFR ( Amer) 34.3 ml/min Est GFR (Non-Af Amer) 29.6 ml/min BUN/Creatinine Ratio 9.5 L (10-20) Glucose 224 H (70-99) mg/dl POC Glucose 283 H 214 H (70-99) mg/dl Calcium 8.4 L (8.5-10.1) mg/dl Magnesium 2.2 (1.8-2.4) mg/dl 12/21/20 12/20/20 12/20/20 Range/Units 07:02 23:35 20:32 WBC 7.13 (4.8-10.8) K/uL RBC 3.45 L (4.7-6.1) M/uL Hgb 10.0 L (14.0-18.0) g/dL Hct 30.0 L (42-52) % MCV 87.0 (80-100) fL MCH 29.0 (25-34) pg MCHC 33.3 (32-36) g/dL RDW Std Deviation 41.5 (36.4-46.3) fL RDW Coeff of Rik 13.0 (11.5-14.5) % Plt Count 312 (130-400) K/uL MPV 9.9 (7.4-10.4) fL Immature Gran % (Auto) 0.3 % Neut % (Auto) 65.0 % Lymph % (Auto) 25.7 % Adair % (Auto) 7.9 % Eos % (Auto) 1.0 % Baso % (Auto) 0.1 % Neut # (Auto) 4.64 (1.4-6.5) K/uL Lymph # (Auto) 1.83 (1.2-3.4) K/uL Adair # (Auto) 0.56 (0.11-0.59) K/uL Eos # (Auto) 0.07 (0-0.5) K/uL Baso # (Auto) 0.01 (0-0.2) K/uL Immature Gran # (Auto) 0.02 (0.00-0.02) K/uL Sodium (136-145) mmol/L Potassium (3.5-5.1) mmol/L Chloride (98-107) mmol/L Carbon Dioxide (21-32) mmol/L Anion Gap (3-11) BUN (7-18) mg/dl Creatinine (0.6-1.4) mg/dl Est Cr Clr Drug Dosing ml/min Est GFR ( Amer) ml/min Est GFR (Non-Af Amer) ml/min BUN/Creatinine Ratio (10-20) Glucose (70-99) mg/dl POC Glucose 74 196 H (70-99) mg/dl Calcium (8.5-10.1) mg/dl Magnesium (1.8-2.4) mg/dl 12/20/20 Range/Units 16:24 WBC (4.8-10.8) K/uL RBC (4.7-6.1) M/uL Hgb (14.0-18.0) g/dL Hct (42-52) % MCV (80-100) fL MCH (25-34) pg MCHC (32-36) g/dL RDW Std Deviation (36.4-46.3) fL RDW Coeff of Rik (11.5-14.5) % Plt Count (130-400) K/uL MPV (7.4-10.4) fL Immature Gran % (Auto) % Neut % (Auto) % Lymph % (Auto) % [place] % (Auto) % Eos % (Auto) % Baso % (Auto) % Neut # (Auto) (1.4-6.5) K/uL Lymph # (Auto) (1.2-3.4) K/uL [place] # (Auto) (0.11-0.59) K/uL Eos # (Auto) (0-0.5) K/uL Baso # (Auto) (0-0.2) K/uL Immature Gran # (Auto) (0.00-0.02) K/uL Sodium (136-145) mmol/L Potassium (3.5-5.1) mmol/L Chloride (98-107) mmol/L Carbon Dioxide (21-32) mmol/L Anion Gap (3-11) BUN (7-18) mg/dl Creatinine (0.6-1.4) mg/dl Est Cr Clr Drug Dosing ml/min Est GFR ( Amer) ml/min Est GFR (Non-Af Amer) ml/min BUN/Creatinine Ratio (10-20) Glucose (70-99) mg/dl POC Glucose 210 H (70-99) mg/dl Calcium (8.5-10.1) mg/dl Magnesium (1.8-2.4) mg/dl Medications Administered Current Inpatient Medications Acetaminophen (Acetaminophen 325 Mg Tab) 650 mg PO Q4H PRN PRN Reason: Pain or Fever Stop: 01/19/21 09:16 Amlodipine Besylate (Amlodipine Besylate 5 Mg Tab) 5 mg PO QAM [facility] Stop: 01/20/21 08:59 Last Admin: 12/21/20 08:09 Dose: 5 mg Documented by: Clonidine HCl (Clonidine Hcl 0.2 Mg/24 Hr Transderm Sys) 1 patch TD Q7D@0600 [facility] Stop: 01/19/21 05:59 Last Admin: 12/20/20 06:04 Dose: 1 patch Documented by: Dextrose (Dextrose 50% 50 Ml Syringe) 25 - 50 ml IV UD PRN; Protocol PRN Reason: Hypoglycemia Protocol Stop: 01/19/21 13:40 Fluticasone/Vilanterol (Fluticasone/Vilanterol 100/25mcg 14 Puffs/Inhaler) 1 puffs INH DAILY [facility] Stop: 01/19/21 08:59 Last Admin: 12/21/20 08:07 Dose: 1 puffs Documented by: Gabapentin (Gabapentin 300 Mg Cap) 300 mg PO TID [facility] Stop: 01/19/21 09:16 Last Admin: 12/21/20 13:31 Dose: 300 mg Documented by: Glucagon (Glucagon For Inj 1 Mg Vial) 1 mg SQ UD PRN; Protocol PRN Reason: Hypoglycemia Protocol Stop: 01/19/21 13:40 Glucose (Glucose 40% Gel 15 Gm Tube) 15 - 30 gm PO UD PRN; Protocol PRN Reason: Hypoglycemia Protocol Stop: 01/19/21 09:16 Glucose (Glucose 10 Tabs/Tube) 4 - 8 tabs PO UD PRN; Protocol PRN Reason: Hypoglycemia Protocol Stop: 01/19/21 13:40 Glucose (Glucose 40% Gel 15 Gm Tube) 15 - 30 gm PO UD PRN; Protocol PRN Reason: Hypoglycemia Protocol Stop: 01/19/21 13:40 Heparin Sodium (Porcine) (Heparin Sod 5,000 Unit/0.5 Ml Vial) 5,000 units SQ Q12 [facility] Stop: 01/19/21 20:59 Last Admin: 12/21/20 08:08 Dose: 5,000 units Documented by: Promethazine HCl 12.5 mg/ (Sodium Chloride) 50.5 mls @ 202 mls/hr IV Q6H PRN PRN Reason: Nausea And Vomiting Stop: 01/19/21 09:16 Last Infusion: 12/21/20 08:07 Dose: Infused Documented by: Sodium Chloride (Nss 1000ml) 500 mls @ 999 mls/hr IV .Q31M ONE Stop: 12/21/20 16:04 Insulin Glargine (Insulin Glargine Solostar 100 Units/Ml 3 Ml Pen) 7 units SC BID [facility] Stop: 01/20/21 20:59 Insulin Human Regular (Insulin Human Regular) 0 units SC 0730,1130,1630 [facility] Stop: 01/20/21 16:29 Insulin Human Regular (Insulin Human Regular) 0 units SC 2100 [facility] Stop: 01/20/21 20:59 Insulin Human Regular (Insulin Human Regular) 0 units SC 0000 [facility] Stop: 12/22/20 00:01 Levetiracetam (Levetiracetam 250 Mg Tab) 750 mg PO BID [facility] Stop: 01/19/21 09:16 Last Admin: 12/21/20 08:08 Dose: 750 mg Documented by: Miscellaneous (Remove Clonidine Patch) 1 ea N/A CQWK@0559 [facility] Stop: 01/19/21 05:58 Last Admin: 12/20/20 10:15 Dose: Not Given Documented by: Miscellaneous (Check Clonidine Patch Placement) 1 ea N/A QS [facility] Stop: 01/19/21 07:59 Last Admin: 12/21/20 15:08 Dose: 1 ea Documented by: Miscellaneous (Carbohydrates For Hypoglycemia ) 15 - 30 gm PO UD PRN PRN Reason: Hypoglycemia Protocol Stop: 01/19/21 09:16 Miscellaneous (Carbohydrates For Hypoglycemia ) 15 - 30 gm PO UD PRN PRN Reason: Hypoglycemia Protocol Stop: 01/19/21 13:40 Miscellaneous Information (Pharmacy Glycemic Mgmt Consult) 1 ea N/A UD PRN; Protocol PRN Reason: Consult Stop: 01/19/21 13:40 Morphine Sulfate (Morphine Sulfate Cr 60 Mg Tabcr) 60 mg PO BID [facility] Stop: 01/03/21 09:29 Last Admin: 12/21/20 08:10 Dose: 60 mg Documented by: Multivitamins (Multivitamin Tab) 1 tab PO QAM [facility] Stop: 01/19/21 09:16 Last Admin: 12/21/20 08:09 Dose: 1 tab Documented by: Oxycodone HCl (Oxycodone Hcl Ir 5 Mg Tab (Immediate Release)) 10 mg PO Q4H PRN PRN Reason: Pain Stop: 01/03/21 09:16 Last Admin: 12/21/20 12:07 Dose: 10 mg Documented by: Pantoprazole Sodium (Pantoprazole 40 Mg Tab) 40 mg PO QAM [facility] Stop: 01/19/21 09:16 Last Admin: 12/21/20 08:09 Dose: 40 mg Documented by:
[2020-12-21] MEDS: CARBOHYDRATES FOR HYPOGLYCEMIA PO PRN (16:32)
[2020-12-21] MEDS: DEXTROSE 50% 50 ML SYRINGE IV PRN (16:40)
[2020-12-21] MEDS ORDERED: INSULIN GLARGINE SOLOSTAR 100 UNITS/ML 3 ML PEN SC SCH (21:00)
[2020-12-21] MEDS: SODIUM CHLORIDE 0.9% 1000ML 1,000 ML IV SCH (21:23)
[2020-12-22] MEDS ORDERED: INSULIN HUMAN REGULAR SC SCH
[2020-12-22] MEDS: CHECK CLONIDINE PATCH PLACEMENT SCH ×2 (02:09→07:08)
[2020-12-22] MEDS ORDERED: oxyCODONE HCL IR 5 MG TAB (IMMEDIATE RELEASE) PO PRN (06:59)
[2020-12-22 07:57] LABS: Hematocrit (blood only) 31.6 % (42-52); Hemoglobin 10.3 g/dL (14.0-18.0); Mean Corpuscular Hemoglobin 29.3 pg (25-34); Mean Corpuscular Hgb Conc 32.6 g/dL (32-36); Mean Platelet Volume 10.3 fL (7.4-10.4); Platelet Count 304 K/uL (130-400); RDW Coefficient of Variation 13.4 % (11.5-14.5); RDW Standard Deviation 44.1 fL (36.4-46.3); Red Blood Count 3.51 M/uL (4.7-6.1); White Blood Count 5.17 K/uL (4.8-10.8)
[2020-12-22] MEDS: SODIUM CHLORIDE 0.9% 1000ML 1,000 ML IV SCH ×2 (08:12→22:04)
[2020-12-22] MEDS: GABAPENTIN 300 MG CAP PO SCH (08:13)
[2020-12-22] MEDS: FLUTICASONE/VILANTEROL 100/25MCG 14 PUFFS/INHALER INH SCH (08:13)
[2020-12-22] MEDS: HEPARIN SOD 5,000 UNIT/0.5 ML VIAL SQ SCH ×2 (08:13→22:02)
[2020-12-22] MEDS: PANTOprazole 40 MG TAB PO SCH (08:13)
[2020-12-22] MEDS: levETIRAcetam 250 MG TAB PO SCH ×2 (08:13→21:57)
[2020-12-22] MEDS: MULTIVITAMIN TAB PO SCH (08:13)
[2020-12-22] MEDS: amLODIPine BESYLATE 5 MG TAB PO SCH (08:15)
[2020-12-22] MEDS: INSULIN HUMAN REGULAR SC SCH ×4 (08:16→21:57)
[2020-12-22] MEDS: MoRPHine SULFATE CR 60 MG TABCR PO SCH (08:23)
[2020-12-22 08:28] LABS: BUN Creatinine Ratio 9.1 (10-20); Creatinine Clr Calc Pharmacy 26.7 ml/min; Est GFR (African American) 25.7 ml/min; Est GFR (Non-African American) 22.2 ml/min; Magnesium 2.2 mg/dl (1.8-2.4); Phosphorus 5.7 mg/dl (2.5-4.9); Potassium 4.7 mmol/L (3.5-5.1)
[2020-12-22] MEDS ORDERED: INSULIN GLARGINE SOLOSTAR 100 UNITS/ML 3 ML PEN SC SCH ×2 (09:00→21:00)
--- NOTE | 2020-12-22 14:13 | Hospitalist Progress Note ---
Date of Service December 22, 2020 Assessment & Plan (1) SOB (shortness of breath): Plan: Increased somnolence Patient is able to answer questions appropriately however somnolent Likely secondary to opiate use and gabapentin use especially now with IVAN on CKD Hold gabapentin, oxycodone decreased from 10 mg to 5 mg, only give as needed Continue closely monitor respiratory and hemodynamic status Initial concern for poss. PE - ruled out Rule out PE given abnormal D-dimer and malignancy history VQ scan, LE Dopplers obtained for PE work-up Both negative therefore IV heparin was stopped Currently breathing on room air, denies any shortness of breath Hypertension, elevated on admission secondary to illness BP on 12/21 - on lower side, instructed nurse to take off clonidine patch, and will give small bolus of normal saline 12/22 - BP continues to be on lower side - hold amlodipine, hold clonidine, continue IV fluids, continue to closely monitor Abdominal pain nausea vomiting diarrhea History gastroparesis status post gastric pacemaker Possible opioid withdrawal, history chronic pain on narcotics prior history confinement for opiate withdrawal secondary to running out of narcotic medications Rule out C. difficile, c. diff ordered - patient had no BM Judicious narcotic use, suspect possible misuse (As per conversation with ER medication internal communications specialist, patient not forthcoming about information regarding his Fentanyl patch being switched to Morphine Sulfate ER twice daily by PCP last month due to Fentanyl cost issues.) 12/21 -Per nursing staff, patient was doing well earlier that day, however in the afternoon became extremely somnolent Nursing staff concerned about misuse of opiates, checked patient's bag, found his home oxycodone (these were now taken by the staff) 12/22 -patient reports pain with urination, and suprapubic tenderness UA on admission unremarkable, will repeat UA Creatinine also elevated bladder distended noted on CT on admission Will obtain bladder scan, and straight cath/Place Peace if needed IVAN on CKD secondary to illness Baseline UA, monitor creatinine response to IV fluids UA on 12/20 -unremarkable Cr on 12/21 - Cr 2.4 (on admission 12/20 Cr 2.2) Cr 3 on 12/22 -also bladder distended on CT on admission we will repeat UA, will obtain bladder scan and possibly straight cathed/Place Peace as may be obstructive in nature We will also further discuss with nephrology 12/22 - Update: Straight cath for 1250 mL, will place a Peace catheter, await UA and urine culture DM1 - suboptimal control as of recent outpatient hemoglobin A1c of 11.6 % June 2020 current Hgb A1c 11.4% - Basal insulin adjusted for clear liquid diet for now, ISS BG goal 110-140, update hemoglobin A1c NSCLC stage III, status post surgery, incomplete chemotherapy secondary to intolerance -stable disease as per last oncology note from last month Follows with Dr. 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 Heparin Full code Admission and Anticipated Discharge Date Admission Date: December 21, 2020 Subjective Patient seen in follow-up of shortness of breath, nausea Per nurse, patient was doing okay earlier yesterday however in the afternoon became extremely somnolent This morning I talked to the nurse who had patient overnight, and patient was apparently awake and asking for pain medications He received gabapentin, and was asking for more pain medications, received oxycodone about 11 PM since then he has been sleeping Discussed with current nurse today and patient continues to be somnolent His creatinine is also elevated at 3, has been on IV fluids He is able to answer some questions for me however difficulty with prolonged conversation He denies any chest pain or shortness of breath He tells me that he has been having pain with urination for the past week Urine on admission unremarkable We will check UA again, CT on admission shows some distended bladder, will obtain bladder scan and place Peace We will also further discuss with nephrology Continue closely monitor, especially respiratory status and hemodynamic status Review of Systems Review of Systems: All systems reviewed & are unremarkable except as noted in Subjective Physical Exam Physical Exam: GENERAL: thin male somnolent, in no respiratory distress HEENT: NC, EOMI, pupils equal and constricted, pale palpebral conjunctivae NECK : Supple, no tenderness CHEST : decreased breath sounds, but overall CTAB HEART : RRR, no obvious murmurs ABDOMEN: soft, +tender at suprapubic area, + bowel sounds EXTREMITIES : No LE swelling/tenderness, moves extremities NEUROLOGIC : Somnolent but arousable, able to answer questions appropriately however not able to have prolonged conversation, no facial asymmetry, moves extremities SKIN: pallor, warm Results & Data Results & Data ([facility]) Vital Signs (Past 12 Hours) Vital Signs Temp Pulse Pulse Resp BP Pulse Ox 12/22/20 11:21 36.8 C 94 H 16 100/59 L 92 12/22/20 07:12 84 12/22/20 07:08 36.5 C 88 18 95/62 L 90 12/22/20 04:19 36.6 C 99 H 20 109/63 92 Laboratory Results 12/22/20 12/22/20 12/22/20 Range/Units 12:33 11:25 07:34 WBC (4.8-10.8) K/uL RBC (4.7-6.1) M/uL Hgb (14.0-18.0) g/dL Hct (42-52) % MCV (80-100) fL MCH (25-34) pg MCHC (32-36) g/dL RDW Std Deviation (36.4-46.3) fL RDW Coeff of Rik (11.5-14.5) % Plt Count (130-400) K/uL MPV (7.4-10.4) fL Sodium 139 (136-145) mmol/L Potassium 4.7 (3.5-5.1) mmol/L Chloride 110 H (98-107) mmol/L Carbon Dioxide 22 (21-32) mmol/L Anion Gap 7.0 (3-11) BUN 27 H (7-18) mg/dl Creatinine 3.02 H D (0.6-1.4) mg/dl Est Cr Clr Drug Dosing 26.7 ml/min Est GFR ( Amer) 25.7 ml/min Est GFR (Non-Af Amer) 22.2 ml/min BUN/Creatinine Ratio 9.1 L (10-20) Glucose 131 H (70-99) mg/dl POC Glucose 229 H (70-99) mg/dl Lactate 0.8 (0.4-2.0) mmol/L Calcium 8.0 L (8.5-10.1) mg/dl Phosphorus 5.7 H (2.5-4.9) mg/dl Magnesium 2.2 (1.8-2.4) mg/dl 12/22/20 12/22/20 12/21/20 Range/Units 07:34 07:16 20:22 WBC 5.17 (4.8-10.8) K/uL RBC 3.51 L (4.7-6.1) M/uL Hgb 10.3 L (14.0-18.0) g/dL Hct 31.6 L (42-52) % MCV 90.0 (80-100) fL MCH 29.3 (25-34) pg MCHC 32.6 (32-36) g/dL RDW Std Deviation 44.1 (36.4-46.3) fL RDW Coeff of Rik 13.4 (11.5-14.5) % Plt Count 304 (130-400) K/uL MPV 10.3 (7.4-10.4) fL Sodium (136-145) mmol/L Potassium (3.5-5.1) mmol/L Chloride (98-107) mmol/L Carbon Dioxide (21-32) mmol/L Anion Gap (3-11) BUN (7-18) mg/dl Creatinine (0.6-1.4) mg/dl Est Cr Clr Drug Dosing ml/min Est GFR ( Amer) ml/min Est GFR (Non-Af Amer) ml/min BUN/Creatinine Ratio (10-20) Glucose (70-99) mg/dl POC Glucose 148 H 83 (70-99) mg/dl Lactate (0.4-2.0) mmol/L Calcium (8.5-10.1) mg/dl Phosphorus (2.5-4.9) mg/dl Magnesium (1.8-2.4) mg/dl 12/21/20 12/21/20 12/21/20 Range/Units 17:00 16:30 16:29 WBC (4.8-10.8) K/uL RBC (4.7-6.1) M/uL Hgb (14.0-18.0) g/dL Hct (42-52) % MCV (80-100) fL MCH (25-34) pg MCHC (32-36) g/dL RDW Std Deviation (36.4-46.3) fL RDW Coeff of Rik (11.5-14.5) % Plt Count (130-400) K/uL MPV (7.4-10.4) fL Sodium (136-145) mmol/L Potassium (3.5-5.1) mmol/L Chloride (98-107) mmol/L Carbon Dioxide (21-32) mmol/L Anion Gap (3-11) BUN (7-18) mg/dl Creatinine (0.6-1.4) mg/dl Est Cr Clr Drug Dosing ml/min Est GFR ( Amer) ml/min Est GFR (Non-Af Amer) ml/min BUN/Creatinine Ratio (10-20) Glucose (70-99) mg/dl POC Glucose 132 H 53 L* 53 L* (70-99) mg/dl Lactate (0.4-2.0) mmol/L Calcium (8.5-10.1) mg/dl Phosphorus (2.5-4.9) mg/dl Magnesium (1.8-2.4) mg/dl Medications Administered Current Inpatient Medications Acetaminophen (Acetaminophen 325 Mg Tab) 650 mg PO Q4H PRN PRN Reason: Pain or Fever Stop: 01/19/21 09:16 Amlodipine Besylate (Amlodipine Besylate 5 Mg Tab) 5 mg PO QAM [facility] Stop: 01/20/21 08:59 Last Admin: 12/22/20 08:15 Dose: Not Given Documented by: Clonidine HCl (Clonidine Hcl 0.2 Mg/24 Hr Transderm Sys) 1 patch TD Q7D@0600 [facility] Stop: 01/19/21 05:59 Last Admin: 12/20/20 06:04 Dose: 1 patch Documented by: Dextrose (Dextrose 50% 50 Ml Syringe) 25 - 50 ml IV UD PRN; Protocol PRN Reason: Hypoglycemia Protocol Stop: 01/19/21 13:40 Last Admin: 12/21/20 16:40 Dose: 50 ml Documented by: Fluticasone/Vilanterol (Fluticasone/Vilanterol 100/25mcg 14 Puffs/Inhaler) 1 puffs INH DAILY [facility] Stop: 01/19/21 08:59 Last Admin: 12/22/20 08:13 Dose: 1 puffs Documented by: Gabapentin (Gabapentin 300 Mg Cap) 300 mg PO TID [facility] Stop: 01/19/21 09:16 Last Admin: 12/22/20 08:13 Dose: 300 mg Documented by: Glucagon (Glucagon For Inj 1 Mg Vial) 1 mg SQ UD PRN; Protocol PRN Reason: Hypoglycemia Protocol Stop: 01/19/21 13:40 Glucose (Glucose 40% Gel 15 Gm Tube) 15 - 30 gm PO UD PRN; Protocol PRN Reason: Hypoglycemia Protocol Stop: 01/19/21 09:16 Glucose (Glucose 10 Tabs/Tube) 4 - 8 tabs PO UD PRN; Protocol PRN Reason: Hypoglycemia Protocol Stop: 01/19/21 13:40 Glucose (Glucose 40% Gel 15 Gm Tube) 15 - 30 gm PO UD PRN; Protocol PRN Reason: Hypoglycemia Protocol Stop: 01/19/21 13:40 Heparin Sodium (Porcine) (Heparin Sod 5,000 Unit/0.5 Ml Vial) 5,000 units SQ Q 12 [facility] Stop: 01/19/21 20:59 Last Admin: 12/22/20 08:13 Dose: 5,000 units Documented by: Promethazine HCl 12.5 mg/ (Sodium Chloride) 50.5 mls @ 202 mls/hr IV Q6H PRN PRN Reason: Nausea And Vomiting Stop: 01/19/21 09:16 Last Infusion: 12/21/20 08:07 Dose: Infused Documented by: Sodium Chloride (Nss 1000ml) 1,000 mls @ 80 mls/hr IV .[id number] [facility] Stop: 01/20/21 19:59 Last Admin: 12/22/20 08:12 Dose: 80 mls/hr Documented by: Albumin Human (Albumin 25%) 12.5 gm in 50 mls @ 50 mls/hr IV Q1H [facility] Stop: 12/22/20 15:59 Insulin Glargine (Insulin Glargine Solostar 100 Units/Ml 3 Ml Pen) 5 units SC QAM [facility] Stop: 01/21/21 08:59 Last Admin: 12/22/20 08:17 Dose: 5 units Documented by: Insulin Human Regular (Insulin Human Regular) 0 units SC 0730,1130,1630 [facility] Stop: 01/20/21 16:29 Last Admin: 12/22/20 12:38 Dose: 2 units Documented by: Insulin Human Regular (Insulin Human Regular) 0 units SC 2100 [facility] Stop: 01/20/21 20:59 Last Admin: 12/21/20 21:41 Dose: Not Given Documented by: Levetiracetam (Levetiracetam 250 Mg Tab) 750 mg PO BID [facility] Stop: 01/19/21 09:16 Last Admin: 12/22/20 08:13 Dose: 750 mg Documented by: Miscellaneous (Remove Clonidine Patch) 1 ea N/A CQWK@0559 [facility] Stop: 01/19/21 05:58 Last Admin: 12/21/20 16:15 Dose: 1 ea Documented by: Miscellaneous (Check Clonidine Patch Placement) 1 ea N/A QS [facility] Stop: 01/19/21 07:59 Last Admin: 12/22/20 07:08 Dose: Not Given Documented by: Miscellaneous (Carbohydrates For Hypoglycemia ) 15 - 30 gm PO UD PRN PRN Reason: Hypoglycemia Protocol Stop: 01/19/21 09:16 Last Admin: 12/21/20 16:32 Dose: 15 gm Documented by: Miscellaneous (Carbohydrates For Hypoglycemia ) 15 - 30 gm PO UD PRN PRN Reason: Hypoglycemia Protocol Stop: 01/19/21 13:40 Miscellaneous Information (Pharmacy Glycemic Mgmt Consult) 1 ea N/A UD PRN; Protocol PRN Reason: Consult Stop: 01/19/21 13:40 Morphine Sulfate (Morphine Sulfate Cr 60 Mg Tabcr) 60 mg PO BID [facility] Stop: 01/03/21 09:29 Last Admin: 12/22/20 08:23 Dose: Not Given Documented by: Multivitamins (Multivitamin Tab) 1 tab PO QAM [facility] Stop: 01/19/21 09:16 Last Admin: 12/22/20 08:13 Dose: 1 tab Documented by: Oxycodone HCl (Oxycodone Hcl Ir 5 Mg Tab (Immediate Release)) 5 mg PO Q3H PRN PRN Reason: Pain Stop: 01/03/21 09:16 Pantoprazole Sodium (Pantoprazole 40 Mg Tab) 40 mg PO QAM [facility] Stop: 01/19/21 09:16 Last Admin: 12/22/20 08:13 Dose: 40 mg Documented by:
[2020-12-22] MEDS: ALBUMIN 25% 12.5 GM/50 ML VIAL IV SCH ×4 (14:48→19:23)
[2020-12-22 14:55] LABS: Appearance Urine Clear (Clear); Bacteria Urine Automated Negative (Negative); Bilirubin Urine Negative (Negative); Blood Urine Negative (Negative); Cast Urine Automated 0 /lpf (0-5); Color Urine Yellow; Epithelial Cell Urine Auto 0-5 /lpf (0-5); Glucose Urine UA 2+ (Negative); Ketones Urine Negative (Negative); Leukocyte Esterase Urine Negative (Negative); Nitrite Urine Negative (Negative); Protein Urine 3+ (Negative); RBC Urine Automated 0-4 /hpf (0-4); Specific Gravity Urine 1.009 (1.000-1.030); Urobilinogen Urine Negative (Negative); WBC Urine Automated 0 /hpf (0-5); pH Urine 5.5 (4.5-7.5)
--- NOTE | 2020-12-22 17:09 | Nephrology Consultation ---
Date of Consultation December 22, 2020 Assessment & Plan (1) Renal failure (ARF), acute on chronic: he was slightly above baseline and has worsened since arrival. no particularly offending meds, at least not that we know-no nsaids, no bp meds, no iv contrast, no abtx. His blood pressure has been fairly labile >> from 150- 170s or higher systolic to 90s since yesterday afternoon. clonidine patch has been removed; He did have a few doses of opiates before yesterday pm whcih could also in theory at least contribute. urine sediment on admission with large blood/protein, as at previous evals. chemistries ok except for mild hyperchloremia cath'd today to get repeat ua which is unchanged from admission. lactate is wnl -if no ongoing ruiz, ck bladder scan q shift while obtunded -daily bmp -no indication for dialysis -cont NS current rate (2) Altered mental status: opiate metabolites can accumulate in renal failure potentially contributing to AMS; else unclear cause for this > defer to primary service for further w/u History of Present Illness Reason for Consultation: IVAN on CKD Requesting Physician: Dr Segal Attending Physician: Lorne Segal MD History of Present Illness 55 y/o M whom I'm asked to evaluate for IVAN on CKD was admitted here on ft presenting w/ 4 days abd pain, n/v/d, F/C, dyspnea w/o cough. History is obtained from chart review as pt is obtunded/somnolent, unable to give hx. Covid testing was negative. PMH includes NSCLC stage 3 s/p surgery and w/ incomplete CTX d/t intolerance, DM 1 w/ neuropathy, gastroparesis s/p gastric pacemaker, CKD3B w/ baseline creatinine 2.0, hx neurogenic bladder, seizure disorder. His presenting creatinine was 2.2, has since uptrended to 3 today. No IV contrast, no NSAIDS. he became somnolent apparently sometime 12/22 afternoon. had some oxycodone, gabapentin and possibly some of his own oxycodone yesterday overnight. narcotics on hold now and meds pt had brought in from home stopped. Allergies Allergy/AdvReac Type Severity Reaction Status Date / Time bee venom protein (honey bee) Allergy Mild SWELLING Verified 12/20/20 07:02 AT SITE, SOB Penicillins Allergy Unknown "SINCE Verified 12/20/20 07:02 "-Amoxicillin cat dander Allergy Unknown Verified 12/20/20 07:02 Home Medications Medication Instructions Recorded Confirmed Type albuterol sulfate 90 mcg/actuation 2 puff INHALATION Q4H PRN 05/05/18 12/20/20 History aerosol inhaler epinephrine 0.3 mg/0.3 mL 0.3 mg IM Q3H PRN 05/05/18 12/20/20 History injection, auto-injector (EpiPen) gabapentin 300 mg capsule 300 mg PO TID 05/05/18 12/20/20 History insulin glargine 100 unit/mL (3 7 unit SUBCUT HS 05/05/18 12/20/20 History mL) subcutaneous pen (Basaglar KwikPen U-100 Insulin) insulin lispro 100 unit/mL 1 sliding scale dose SUBCUT UD 05/05/18 12/20/20 History subcutaneous cartridge (Humalog U-100 Insulin) multivitamin 1 tab PO QAM 05/05/18 12/20/20 History oxycodone 10 mg tablet 10 mg PO Q4H PRN 05/05/18 12/20/20 History pantoprazole 40 mg tablet,delayed 40 mg PO QAM 05/05/18 12/20/20 History release clonidine 0.2 mg/24 hr weekly 1 patch TRANSDERMAL WK 01/23/20 12/20/20 History transdermal patch escitalopram oxalate 10 mg tablet 10 mg PO DAILY 01/24/20 12/20/20 History (Lexapro) fluticasone 250 mcg-salmeterol 50 1 inh INHALATION BID 01/24/20 12/20/20 History mcg/dose blistr powdr for inhalation (Wixela Inhub) amlodipine 5 mg tablet (Norvasc) 5 mg PO QAM #30 tab 01/29/20 12/20/20 Rx levetiracetam 750 mg tablet 750 mg PO BID 30 Days #60 tab 01/29/20 12/20/20 Rx (Keppra) MorphaBond ER 60 mg PO BID 12/20/20 12/20/20 History cyclobenzaprine 5 mg tablet 5 mg PO TID PRN 12/20/20 12/20/20 History ondansetron 8 mg disintegrating 8 mg PO Q8H PRN 12/20/20 12/20/20 History tablet Patient History Medical History (Updated 12/22/20 @ 17:02 by Norma Lord MD, PhD) Acute dyspnea Acute hyponatremia IVAN (acute kidney injury) Anemia Chest pain No current chest pain...related to reflux per patient Chronic pain COPD (chronic obstructive pulmonary disease) Diabetes mellitus type 2, uncontrolled Diabetic autonomic neuropathy Diabetic peripheral neuropathy Discharge planning issues DVT prophylaxis Gastroparesis "s/p gastric stimulator" Hypertension Hypomagnesemia Intractable nausea and vomiting 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 One 1 mm polyp in the ascending colon resected. One benign appearing 1 mm polyp in the rectum resected. Internal hemorrhoids; Dr. Demarco" H/O esophagogastroduodenoscopy "01/26/2015- [place] Grade B reflux esophagitis, gastritis; Dr. Major" History of cholecystectomy History of tonsillectomy and adenoidectomy Hx of total knee arthroplasty S/P lobectomy of lung "left upper lobectomy for adenoCa" On 08/05/16 16:30 Edie Mcfarland wrote "L side @ [facility] 05/25/16" Status post insertion of intrathecal pump explanted Family History Other Family history non-contributory Social History Smoking Status: Former smoker Second Hand Exposure: No; Do You Dip or Chew Tobacco: No; Tobacco Cessation Education Requested by Patient: No Hx Alcohol Use: Yes Alcohol type: beer Hx Substance Use: Yes Last Used Substance: Just Prior to Arrival Last Used Substance Other:: Four hours ago Substance Use Type Other:: fentanyl patch 24hrs a day-refused removal of 2 patches Preferred Language: Occitan Communication Ability: Effective Body Man Required: No Beliefs That Will Affect Care: Congregational Congregational Beliefs: Sikhism marital status: Single Current Living Situation: Alone Other Information That Helps Us Care for You: No Feels Safe at Home: Yes Safety Concerns: Afraid for Self Assistive Devices: Brace/Splint/Immobilizer Review of Systems Review of Systems: Unobtainable due to reduced consciousness Physical Exam Constitutional: well developed, average body habitus, + frail appearing and + lethargic; no acute distress snoring, difficult to arouse Eyes: EOM intact bilaterally ENMT: Ears: no external ear abnormality Nose: no external nose abnormality Mouth: + dry oral mucous membranes Neck: no nuchal rigidity Respiratory: normal respiratory effort Auscultation: + diminished lung sounds Cardiovascular: Rate/Rhythm: regular rate and regular rhythm Extremities: no edema Gastrointestinal (Abdomen): Inspection/Auscultation: normal bowel sounds Percussion/Palpation: abdomen soft; abdomen nontender Musculoskeletal: Extremities: + abnormal strength Skin: no rashes, warm and dry Neurologic: + obtunded Results & Data ([facility]) Vital Signs (Past 12 Hours) Vital Signs Temp Pulse Pulse Resp BP Pulse Ox 12/22/20 15:38 89 12/22/20 15:34 36.4 C L 88 16 94/59 L 92 12/22/20 11:21 36.8 C 94 H 16 100/59 L 92 12/22/20 07:12 84 12/22/20 07:08 36.5 C 88 18 95/62 L 90 Laboratory Results 12/22/20 07:34 12/22/20 07:34 (1) Renal failure (ARF), acute on chronic Chronic kidney disease stage: stage 4 (severe)
[2020-12-22 18:15] LABS: BUN Creatinine Ratio 10.5 (10-20); Calcium 7.9 mg/dl (8.5-10.1); Creatinine Clr Calc Pharmacy 26.1 ml/min; Est GFR (Non-African American) 21.6 ml/min; Magnesium 2.1 mg/dl (1.8-2.4); Phosphorus 5.9 mg/dl (2.5-4.9); Potassium 5.3 mmol/L (3.5-5.1)
[2020-12-22] MEDS ORDERED: CALCIUM GLUCONATE 10% 1,000 MG in SODIUM CHLORIDE 0.9% 50 ML IV ONE (18:22)
[2020-12-22] MEDS: SODIUM POLYSTYRENE SULFONATE 15G/60ML SUSP PO SCH (19:23)
[2020-12-22] MEDS ORDERED: NALOXONE HCL 0.4 MG/1 ML VIAL/CARP ONE (20:01)
[2020-12-22 20:23] LABS: iSTAT Allen Test Pass; iSTAT Art Bld Gas pCO2 Correct 59 mmHg (35-46); iSTAT Art Bld Gas pH Corrected 7.152 (7.35-7.45); iSTAT Arterial Blood Gas HCO3 21 meg/L (19-24); iSTAT Arterial Blood Gas pCO2 60 mmHg (35-46); iSTAT Arterial Blood Gas pH 7.15 (7.35-7.45); iSTAT Arterial Blood Gas pO2 58 mmHg (80-95); iSTAT Arterial Blood Gas pO2 C 57; iSTAT Carbon Dioxide 23 mmol/L (24-31); iSTAT Hematocrit 24 % (42-52); iSTAT Hemoglobin 8.2 g/dl (14.0-18.0); iSTAT Potassium 5.1 mmol/L (3.3-5.0); iSTAT Site R Radial; iSTAT Sodium 139 mmol/L (135-144)
[2020-12-22 21:05] LABS: Basophils # (auto) 0.01 K/uL (0-0.2); Basophils % (auto) 0.1 %; Eosinophils # (auto) 0.04 K/uL (0-0.5); Eosinophils % (auto) 0.4 %; Hematocrit (blood only) 26.2 % (42-52); Hemoglobin 8.5 g/dL (14.0-18.0); Immature Granulocytes # (auto) 0.02 K/uL (0.00-0.02); Immature Granulocytes % (auto) 0.2 %; Lymphocytes # (auto) 1.11 K/uL (1.2-3.4); Lymphocytes % (auto) 11.7 %; Mean Corpuscular Hemoglobin 29.6 pg (25-34); Mean Corpuscular Volume 91.3 fL (80-100); Mean Platelet Volume 10.1 fL (7.4-10.4); Monocytes # (auto) 0.64 K/uL (0.11-0.59); Monocytes % (auto) 6.7 %; Neutrophils # (auto) 7.67 K/uL (1.4-6.5); Neutrophils % (auto) 80.9 %; Platelet Count 258 K/uL (130-400); RDW Coefficient of Variation 13.5 % (11.5-14.5); Red Blood Count 2.87 M/uL (4.7-6.1); White Blood Count 9.49 K/uL (4.8-10.8)
[2020-12-22 21:08] LABS: Base Excess ABG -11.9 mEq/L (-9-1.8); HCO3 ABG 15 mmol/L (19-24); Oxygen Saturation ABG 95.8 % (90-95); PCO2 ABG 36 mmHg (35-46); PO2 ABG 86 mmHg (80-95); pH ABG 7.23 (7.35-7.45)
[2020-12-22 21:09] LABS: Allen Test POS (Pos)
[2020-12-22 21:11] LABS: Mean Corpuscular Hgb Conc 32.4 g/dL (32-36)
[2020-12-22 21:21] LABS: Alanine Aminotransferase 18 U/L (12-78); Albumin Level 2.2 gm/dl (3.4-5.0); Aspartate Aminotransferase 34 U/L (15-37); BUN Creatinine Ratio 10.3 (10-20); Blood Urea Nitrogen 33 mg/dl (7-18); Calcium 7.8 mg/dl (8.5-10.1); Carbon Dioxide 20 mmol/L (21-32); Chloride 112 mmol/L (98-107); Creatinine Clr Calc Pharmacy 25.4 ml/min; Est GFR (African American) 24.1 ml/min; Est GFR (Non-African American) 20.8 ml/min; Glucose 126 mg/dl (70-99); Magnesium 1.7 mg/dl (1.8-2.4); Potassium 4.9 mmol/L (3.5-5.1); Sodium 139 mmol/L (136-145)
[2020-12-22 21:30] LABS: Albumin Globulin Ratio 0.6 (0.9-2); Alkaline Phosphatase 105 U/L (45-117); Bilirubin,Total 0.2 mg/dl (0.2-1); Globulin 3.5 gm/dl (2.5-4.0); Total Protein 5.7 gm/dl (6.4-8.2); Troponin I < 0.015 ng/ml (0-0.045)
[2020-12-22] MEDS ORDERED: NALOXONE HCL 1 MG in SODIUM CHLORIDE 0.9% 1000ML 1,000 ML IV SCH (21:45)
[2020-12-22] MEDS ORDERED: NALOXONE HCL 5 MG in 0.9 % SODIUM CHLORIDE 100 ML IV SCH (22:00)
[2020-12-22] MEDS ORDERED: STAT IV Infusion **Titration per Protocol STA (22:22)
[2020-12-23] MEDS: SODIUM POLYSTYRENE SULFONATE 15G/60ML SUSP PO SCH ×3 (01:40→12:07)
[2020-12-23] MEDS ORDERED: NALOXONE HCL 5 MG in 0.9 % SODIUM CHLORIDE 100 ML IV SCH (02:00)
[2020-12-23 03:03] LABS: Hematocrit (blood only) 24.2 % (42-52); Mean Corpuscular Hemoglobin 29.3 pg (25-34); Mean Corpuscular Hgb Conc 33.1 g/dL (32-36); Mean Corpuscular Volume 88.6 fL (80-100); Mean Platelet Volume 10.1 fL (7.4-10.4); Platelet Count 232 K/uL (130-400); RDW Coefficient of Variation 13.4 % (11.5-14.5); RDW Standard Deviation 43.5 fL (36.4-46.3); Red Blood Count 2.73 M/uL (4.7-6.1); White Blood Count 7.15 K/uL (4.8-10.8)
[2020-12-23 03:25] LABS: BUN Creatinine Ratio 11.4 (10-20); Calcium 7.6 mg/dl (8.5-10.1); Est GFR (Non-African American) 22.4 ml/min; Phosphorus 5.4 mg/dl (2.5-4.9); Potassium 4.6 mmol/L (3.5-5.1)
[2020-12-23 03:26] LABS: Allen Test Pos (Pos); Base Excess ABG -9.4 mEq/L (-9-1.8); HCO3 ABG 17 mmol/L (19-24); PCO2 ABG 40 mmHg (35-46); PO2 ABG 87 mmHg (80-95); pH ABG 7.25 (7.35-7.45)
[2020-12-23] MEDS: DEXTROSE 50% 50 ML SYRINGE IV PRN ×2 (03:30→07:19)
[2020-12-23] MEDS: levETIRAcetam 500 MG in 0.9 % SODIUM CHLORIDE 100 ML IV SCH ×2 (03:50→14:43)
[2020-12-23] MEDS: D5W AND NSS 1,000 ML IV SCH ×2 (03:51→14:43)
[2020-12-23] MEDS ORDERED: SODIUM BICARB 8.4% INJ 50 MEQ/50 ML SYR IV STA (06:35)
--- NOTE | 2020-12-23 06:36 | Hospitalist Progress Note ---
Date of Service December 23, 2020 Assessment & Plan Admission and Anticipated Discharge Date Admission Date: December 21, 2020 Subjective Code xochitl was called on 12/22/20 evening as patient was unresponsive, pupils pinpointed and oxygen sats down into 80's. But after a dose of iv narcan patient opened eyes could talk few words and his oxygen sats improved into 90's . He was restless and after 10-15 minutes he went back to sleep. His oxygen sats and BP was ok at this time. ABg showed Ph 7.15. Transferred to PCU to start on narcan drip but patient is alert and awake and oriented and his vitals wer stable and Narcan drip was not started. His Sugars dropped and dextrose was given and fluids changed to d5ns. will give half amp of bicarb and Continue to monitor. Results & Data Results & Data ([facility]) Vital Signs (Past 12 Hours) Vital Signs Temp Pulse Pulse Resp BP Pulse Ox 12/23/20 03:39 36.6 C 89 16 105/56 L 95 12/23/20 02:46 37.1 C 88 16 115/66 97 12/23/20 01:16 36.3 C L 88 16 129/70 98 12/22/20 23:58 90 12/22/20 23:00 37 C 89 18 108/69 100 12/22/20 19:00 36.6 C 83 16 94/61 L 94
[2020-12-23] MEDS: INSULIN HUMAN REGULAR SC SCH ×4 (08:27→23:49)
[2020-12-23] MEDS: FLUTICASONE/VILANTEROL 100/25MCG 14 PUFFS/INHALER INH SCH (08:28)
[2020-12-23] MEDS: PANTOprazole 40 MG TAB PO SCH (08:29)
[2020-12-23] MEDS: MULTIVITAMIN TAB PO SCH (08:29)
[2020-12-23] MEDS: HEPARIN SOD 5,000 UNIT/0.5 ML VIAL SQ SCH ×2 (08:29→21:08)
[2020-12-23] MEDS ORDERED: INSULIN GLARGINE SOLOSTAR 100 UNITS/ML 3 ML PEN SC SCH ×2 (09:00→21:00)
--- NOTE | 2020-12-23 13:29 | Pharmacy Report ---
Pharmacy Glycemic Short Note 2 - Date of Service December 23, 2020 - Glycemic Short BSG Results (Last 24 hours): 12/22/20 12/22/20 12/22/20 16:39 17:47 20:05 Glucose 102 H POC Glucose 125 H 128 H 12/22/20 12/23/20 12/23/20 20:56 01:12 02:45 Glucose 126 H 45 L* POC Glucose 89 12/23/20 12/23/20 12/23/20 03:27 03:28 03:47 Glucose POC Glucose 42 L* 43 L* 128 H 12/23/20 12/23/20 12/23/20 07:15 07:16 07:42 Glucose POC Glucose 46 L* 47 L* 126 H 12/23/20 11:19 Glucose POC Glucose 110 H OUTPATIENT ANTIDIABETIC REGIMEN: * Basaglar 7 units HS, Humalog SSI * A1c 11.4% ASSESSMENT: 12/23 * Patient received total of 12 units of insulin yesterday, of which 10 units were basal insulin * BSGs lower overnight, started on D5 infusion. Fasting BSG still in the 40s. Of note, patient with no PO intake yesterday. Basal insulin had been decreased from day prior * Plan to resume home basaglar dose of 7 units tonight. PO intake improving more with lunch time today 12/21 * Patient admitted with shortness of breath, abdominal pain, N/V. Hx of gastroparesis s/sp gastric pacemaker. Type 1 DM at home with elevated A1c on admission. * Pharmacy consulted for glycemic management. Received total of 35 units of insulin yesterday, of which 10 units were basal insulin. Patient known to glycemic service from prior admissions. BSGs tend to be very labile, especially with having N/V * Fasting BSG 214 mg/dL - plan to titrate basal insulin slightly more today / increase 20% * Continue same CF/CR for now, BSGs trending down quickly yesterday 210-196-74 mg/dL PLAN FOR INPATIENT GLYCEMIC CONTROL: * Hold outpatient oral diabetes medications * Basal insulin * Lantus 7 units HS - (home dose) * Bolus insulin * NovoLog per scale ACHS or Q6hrs while NPO * Goal Range: Low 120 mg/dL - High 160 mg/dL * Correction Factor: 40 mg/dL/unit * Nutritional / Prandial insulin per carb ratio of 1 unit per 20 grams CHO consumed PLAN FOR DISCHARGE: * TBD
--- NOTE | 2020-12-23 13:38 | Electrocardiogram Report ---
Test Reason : Blood Pressure : / mmHG Vent. Rate : 084 BPM Atrial Rate : 084 BPM P-R Int : 162 ms QRS Dur : 082 ms QT Int : 378 ms P-R-T Axes : 035 004 -21 degrees QTc Int : 446 ms Normal sinus rhythm Anteroseptal infarct (cited on or before 20-DEC-2020) Abnormal ECG When compared with ECG of 20-DEC-2020 00:50, Questionable change in initial forces of Anterior leads Nonspecific T wave abnormality now evident in Anterior leads Confirmed by Surya Polk ([id number]) on 12/23/2020 1:38:25 PM Referred By: REFERRED SELF Confirmed By:Surya Polk
--- NOTE | 2020-12-23 14:29 | XRay Report ---
XR chest 1V portable CLINICAL HISTORY: episode of unresponsiveness, r/o aspiration COMPARISON STUDY: January 23, 2020 FINDINGS: No pneumothorax. No pleural effusion. Patchy airspace opacities are seen at the left mid to lower lung and right midlung. Mild diffuse reti cular nodular prominence of pulmonary interstitium is seen bilaterally and was not visualized during prior study. Cardiomediastinal silhouette is within normal limits in size. Pulmonary vasculature is indistinct.. Osseous structures: unremarkable IMPRESSION: 1. Patchy airspace opacities within the right and left lungs which could represent multifocal pneumo libia or related to aspiration. 2. Diffuse prominence of pulmonary interstitium might be seen in infectious/inflammatory process or in pulmonary edema. ACT 112: Negative or not required by law. The above report was generated using voice recognition software. It may contain grammatical, syntax o r spelling errors. Electronically signed by: Christine Ruiz DO 12/23/2020 2:28 PM
[2020-12-23] MEDS: CLINDAMYCIN 600 MG in DEXTROSE 5% 50 ML IV SCH ×2 (15:23→21:13)
--- NOTE | 2020-12-23 15:55 | Nephrology Progress Note ---
Date of Service December 23, 2020 Assessment & Plan (1) Renal failure (ARF), acute on chronic: Plan: he was slightly above baseline renal function and has worsened since arrival; creat peaked at 3.2 on 07/22; down a bit today. no particularly offending meds, at least not that we know-no nsaids, no bp meds, no iv contrast, no abtx. His blood pressure has been fairly labile >> from 150-170s or higher systolic to 90s since yesterday afternoon. clonidine patch has been removed; He did have a few doses of opiates before yesterday pm whcih could also in theory at least contribute. urine sediment on admission with large blood/protein, as at previous evals. chemistries ok except for mild hyperchloremia repeat ua which is unchanged from admission-no infection. lactate is wnl. -daily bmp -no indication for dialysis -cont D5NS current rate -continue ruiz -continue efforts to minimize lability in BG and BP (2) Altered mental status: Plan: opiate metabolites can accumulate in renal failure potentially contributing to AMS; else unclear cause for this > defer to primary service for further w/u -gabapentin held since yesterday am; restart 100 mg daily -improve BG to at least 100 Admission and Anticipated Discharge Date Admission Date: December 21, 2020 Subjective Code purple called last evening for unresponsive patient with O2 sats in the 80s and pinpoint pupils. Desponded to Narcan. To have some lower blood sugars. Transferred to PCU. ABG showed pH 7.15, PCO2 59, PO2 57, bicarb 17 (pH, CO2, O2 all corrected for temperature. straight cath'd for over 1.2L yesterday. BG in 40-60s most of day today but 100s today. started on clinda for empiric coverage d/t elevated procal. Review of Systems Review of Systems: All systems reviewed & are unremarkable except as noted in Subjective, Unobtainable due to cognitive status and Unobtainable due to reduced consciousness Respiratory: no dyspnea Musculoskeletal: c/o generalized pain Physical Exam Constitutional: well developed, average body habitus, + frail appearing and + lethargic; no acute distress Eyes: + EOM movement deficit (staring straight ahead for most part) ENMT: Ears: no external ear abnormality Nose: no external nose abnormality Mouth: + dry oral mucous membranes Neck: no nuchal rigidity Respiratory: normal respiratory effort Auscultation: + diminished lung sounds (moves minimal air) Cardiovascular: Rate/Rhythm: regular rate and regular rhythm Extremities: no edema Gastrointestinal (Abdomen): Inspection/Auscultation: normal bowel sounds Percussion/Palpation: abdomen soft; abdomen nontender Musculoskeletal: Extremities: + abnormal strength Skin: no rashes, warm and dry Neurologic: moves all extremities (but marked generalized weakness) and + con fused Results & Data ([facility]) Vital Signs (Past 12 Hours) Vital Signs Temp Pulse Pulse Resp BP Pulse Ox 12/23/20 15:17 36.6 C 90 18 120/74 92 12/23/20 11:35 36.6 C 88 19 144/71 H 93 12/23/20 08:00 90 12/23/20 07:35 36.5 C 83 18 110/66 97 Laboratory Results 12/23/20 02:45 12/23/20 02:45 Diagnostic Findings cxr 1. Patchy airspace opacities within the right and left lungs which could represent multifocal pneumonia or related to aspiration. 2. Diffuse prominence of pulmonary interstitium might be seen in infec tious/inflammatory process or in pulmonary edema. (1) Renal failure (ARF), acute on chronic Chronic kidney disease stage: stage 4 (severe)
[2020-12-23] MEDS: CARBOHYDRATES FOR HYPOGLYCEMIA PO PRN (16:07)
[2020-12-23] MEDS: ADVANCED PROBIOTIC 1250 MG CAPSULE PO SCH (18:06)
[2020-12-23 19:12] LABS: Hematocrit (blood only) 23.9 % (42-52); Hemoglobin 7.7 g/dL (14.0-18.0); Mean Corpuscular Hemoglobin 29.2 pg (25-34); Mean Corpuscular Hgb Conc 32.2 g/dL (32-36); Mean Corpuscular Volume 90.5 fL (80-100); Mean Platelet Volume 9.8 fL (7.4-10.4); Platelet Count 244 K/uL (130-400); RDW Coefficient of Variation 13.3 % (11.5-14.5); RDW Standard Deviation 44.4 fL (36.4-46.3); Red Blood Count 2.64 M/uL (4.7-6.1); White Blood Count 6.46 K/uL (4.8-10.8)
[2020-12-23 19:31] LABS: Albumin Level 2.1 gm/dl (3.4-5.0); BUN Creatinine Ratio 10.4 (10-20); Calcium 7.6 mg/dl (8.5-10.1); Creatinine Clr Calc Pharmacy 27.4 ml/min; Est GFR (African American) 26.4 ml/min; Est GFR (Non-African American) 22.8 ml/min; Magnesium 2.1 mg/dl (1.8-2.4); Potassium 4.2 mmol/L (3.5-5.1)
[2020-12-23 19:34] LABS: Albumin Globulin Ratio 0.6 (0.9-2); Bilirubin,Total 0.1 mg/dl (0.2-1); Globulin 3.7 gm/dl (2.5-4.0); Phosphorus 5.1 mg/dl (2.5-4.9); Total Protein 5.8 gm/dl (6.4-8.2)
[2020-12-23] MEDS ORDERED: INSULIN HUMAN REGULAR SC SCH ×2 (21:00)
[2020-12-23] MEDS: GABAPENTIN 100 MG CAP PO SCH (21:07)
[2020-12-24] MEDS: D5W AND NSS 1,000 ML IV SCH (03:38)
[2020-12-24] MEDS: levETIRAcetam 500 MG in 0.9 % SODIUM CHLORIDE 100 ML IV SCH ×2 (03:38→17:36)
[2020-12-24] MEDS: CLINDAMYCIN 600 MG in DEXTROSE 5% 50 ML IV SCH ×2 (06:21→18:01)
[2020-12-24] MEDS: INSULIN HUMAN REGULAR SC SCH ×3 (06:24→17:35)
[2020-12-24] MEDS: FLUTICASONE/VILANTEROL 100/25MCG 14 PUFFS/INHALER INH SCH (08:47)
[2020-12-24] MEDS: MULTIVITAMIN TAB PO SCH (08:47)
[2020-12-24] MEDS: PANTOprazole 40 MG TAB PO SCH (08:48)
[2020-12-24] MEDS: ADVANCED PROBIOTIC 1250 MG CAPSULE PO SCH (08:48)
[2020-12-24] MEDS: GABAPENTIN 100 MG CAP PO SCH ×3 (08:48→22:45)
[2020-12-24] MEDS: HEPARIN SOD 5,000 UNIT/0.5 ML VIAL SQ SCH ×2 (08:49→19:55)
[2020-12-24 08:53] LABS: Hematocrit (blood only) 23.5 % (42-52); Hemoglobin 7.6 g/dL (14.0-18.0); Mean Corpuscular Hemoglobin 28.8 pg (25-34); Mean Corpuscular Hgb Conc 32.3 g/dL (32-36); Mean Platelet Volume 9.5 fL (7.4-10.4); Platelet Count 248 K/uL (130-400); RDW Coefficient of Variation 13.2 % (11.5-14.5); RDW Standard Deviation 42.8 fL (36.4-46.3); Red Blood Count 2.64 M/uL (4.7-6.1); White Blood Count 5.15 K/uL (4.8-10.8)
[2020-12-24 09:13] LABS: BUN Creatinine Ratio 9.6 (10-20); Calcium 7.7 mg/dl (8.5-10.1); Creatinine Clr Calc Pharmacy 29.3 ml/min; Est GFR (African American) 28.7 ml/min; Est GFR (Non-African American) 24.7 ml/min; Magnesium 1.6 mg/dl (1.8-2.4); Potassium 4.2 mmol/L (3.5-5.1)
[2020-12-24 09:18] LABS: Albumin Globulin Ratio 0.6 (0.9-2); Bilirubin,Total 0.3 mg/dl (0.2-1); Globulin 3.6 gm/dl (2.5-4.0); Phosphorus 4.3 mg/dl (2.5-4.9); Total Protein 5.6 gm/dl (6.4-8.2)
[2020-12-24] MEDS ORDERED: MAGNESIUM SULFATE / D5W 1 GM/100 ML BAG IV ONE (10:00)
--- NOTE | 2020-12-24 11:23 | Nephrology Progress Note ---
Date of Service December 24, 2020 Assessment & Plan (1) Renal failure (ARF), acute on chronic: Plan: -Was slightly above baseline renal function and has worsened since arrival; creat peaked at 3.2 on 07/22; this has improved to 2.76 today. -His blood pressure has been fairly labile >> from 150-170s or higher systolic to 90s, clonidine patch has been removed; -daily bmp -no indication for dialysis -cont D5NS current rate -continue ruiz -continue efforts to minimize lability in BG and BP (2) Altered mental status: Plan: -Mental status better after Narcan and improved renal function. Admission and Anticipated Discharge Date Admission Date: December 21, 2020 Subjective Comfortable, no new complaints overnight Not in any distress. Review of Systems Respiratory: no dyspnea Physical Exam Physical Exam: Constitutional: WD/WN, vitals as above ; no acute distress Eyes: + anicteric sclerae; no conjunctival abnormality Respiratory: normal respiratory effort; no respiratory distress and no labored breathing Auscultation: lungs clear to auscultation bilaterally; no rales, no rhonchi and no wheezes Cardiovascular: Rate/Rhythm: Normal Heart Sounds: no gallop and no cardiac rub Extremities: no calf tenderness and no pedal edema Gastrointestinal (Abdomen): Inspection/Auscultation: normal bowel sounds; abdomen not distended Musculoskeletal: Head/Neck/Chest: normocephalic, head atraumatic and neck supple Skin: no rashes and no jaundice Neurologic: moves all extremities; no focal motor deficits and not confused Results & Data ([facility]) Vital Signs (Past 12 Hours) Vital Signs Temp Pulse Pulse Resp BP Pulse Ox 12/24/20 08:04 36.7 C 94 H 16 158/72 H 94 12/24/20 07:45 94 H 12/24/20 03:31 37.1 C 100 H 20 119/85 96 12/23/20 23:34 37.3 C 103 H 18 130/62 95 Laboratory Results 12/24/20 08:33 12/24/20 08:33 (1) Renal failure (ARF), acute on chronic Chronic kidney disease stage: stage 4 (severe)
--- NOTE | 2020-12-24 12:25 | CT Scan Report ---
CT OF THE HEAD WITHOUT CONTRAST CLINICAL HISTORY: follow up, AMS, hx of unresponsive episode COMPARISON STUDY: MRI of the brain January 25, 2020. Head CT December 20, 2020. CT DOSE: 537.48 mGy.cm TECHNIQUE: Helical axial images of the head were obtained without IV contrast. Automated exposure con trol was utilized for the study. A dose lowering technique was utilized adhering to the principles o f ALARA. FINDINGS: No acute intracranial hemorrhage, midline shift or mass effect is present. The ventricular system is unremarkable. The basal cisterns are patent. No extra-axial collections are present. There are no findings to suggest acute dural sinus thrombosis or acute territorial infarct. No significant calvarial abnormalities are present. IMPRESSION: No acute intracranial findings. ACT 112: Negative or not required by law. Electronically signed by: Bryce Perez M.D. 12/24/2020 12:24 PM
--- NOTE | 2020-12-24 13:58 | Pharmacy Report ---
Pharmacy Glycemic Short Note 2 - Date of Service December 24, 2020 - Glycemic Short BSG Results (Last 24 hours): 12/23/20 12/23/20 12/23/20 16:01 16:03 16:22 Glucose POC Glucose 59 L* 63 L* 70 12/23/20 12/23/20 12/23/20 19:00 19:43 23:30 Glucose 113 H POC Glucose 130 H 132 H 12/24/20 12/24/20 12/24/20 06:05 07:17 08:33 Glucose 139 H POC Glucose 127 H 123 H 12/24/20 11:21 Glucose POC Glucose 150 H OUTPATIENT ANTIDIABETIC REGIMEN: * Basaglar 7 units HS, Humalog SSI * A1c 11.4% ASSESSMENT: 12/24/20 * Patient's BSGs yesterday were 61-910-78-130 mg/dL. Fasting today was 127 mg/dL. * Due to repeated lows yesterday decision was made to transition to Regular insulin SQ q6 dosing based upon BSG. * Based upon previous hospitalization this provided more stable BSGs. 12/23 * Patient received total of 12 units of insulin yesterday, of which 10 units were basal insulin * BSGs lower overnight, started on D5 infusion. Fasting BSG still in the 40s. Of note, patient with no PO intake yesterday. Basal insulin had been decreased from day prior * Plan to resume home basaglar dose of 7 units tonight. PO intake improving more with lunch time today 12/21 * Patient admitted with shortness of breath, abdominal pain, N/V. Hx of gastroparesis s/sp gastric pacemaker. Type 1 DM at home with elevated A1c on admission. * Pharmacy consulted for glycemic management. Received total of 35 units of insulin yesterday, of which 10 units were basal insulin. Patient known to glycemic service from prior admissions. BSGs tend to be very labile, especially with having N/V * Fasting BSG 214 mg/dL - plan to titrate basal insulin slightly more today / increase 20% * Continue same CF/CR for now, BSGs trending down quickly yesterday 210-196-74 mg/dL PLAN FOR INPATIENT GLYCEMIC CONTROL: * Hold outpatient oral diabetes medications * Bolus insulin * Regular insulin Q6hrs * If BSG 110-140 mg/dl: 1 unit * If BSG 140-200 mg/dL: 2 unit * If BSG >200 mg/dL: 3 unit PLAN FOR DISCHARGE: * TBD
[2020-12-24] MEDS ORDERED: GABAPENTIN 100 MG CAP PO STA (14:46)
--- NOTE | 2020-12-24 16:03 | XRay Report ---
XR hand LT min 3V routine CLINICAL HISTORY: finger ulcer , r/o osteo COMPARISON: None FINDINGS: A bandage on the fourth finger is noted. There is no acute fracture. There is no radiograp hic evidence of osteomyelitis. Vascular calcification is incidentally noted. No radiopaque foreign isaias dies are identified. IMPRESSION: No acute fracture. No radiographic evidence of acute osteomyelitis. ACT 112: Negative or not required by law. Electronically signed by: Bryce Perez M.D. 12/24/2020 4:01 PM
[2020-12-24] MEDS ORDERED: hydrALAZINE HCL 25 MG TAB PO STA (17:24)
[2020-12-24] MEDS: DAPTOmycin 400 MG in SYRINGE 0 ML IV SCH (17:36)
[2020-12-24] MEDS ORDERED: FUROSEMIDE 20 MG TAB PO ONE (18:00)
[2020-12-24] MEDS ORDERED: INSULIN HUMAN REGULAR SC SCH ×3 (19:30)
[2020-12-24] MEDS: LABETALOL HCL IV 5 MG/ML 20ML IV PRN (19:55)
[2020-12-25] MEDS: INSULIN HUMAN REGULAR SC SCH ×4 (00:04→17:07)
[2020-12-25] MEDS: LABETALOL HCL IV 5 MG/ML 20ML IV PRN ×3 (00:05→23:56)
[2020-12-25] MEDS: CLINDAMYCIN 600 MG in DEXTROSE 5% 50 ML IV SCH ×2 (02:22→09:45)
[2020-12-25] MEDS: levETIRAcetam 500 MG in 0.9 % SODIUM CHLORIDE 100 ML IV SCH (03:07)
[2020-12-25] MEDS ORDERED: hydrALAZINE HCL 20 MG/ML VIAL IV STA (03:55)
[2020-12-25 08:16] LABS: Hematocrit (blood only) 25.7 % (42-52); Hemoglobin 8.5 g/dL (14.0-18.0); Mean Corpuscular Hemoglobin 28.9 pg (25-34); Mean Corpuscular Hgb Conc 33.1 g/dL (32-36); Mean Corpuscular Volume 87.4 fL (80-100); Mean Platelet Volume 9.8 fL (7.4-10.4); Platelet Count 306 K/uL (130-400); RDW Standard Deviation 42.1 fL (36.4-46.3); Red Blood Count 2.94 M/uL (4.7-6.1); White Blood Count 6.13 K/uL (4.8-10.8)
[2020-12-25 08:35] LABS: C Reactive Protein 5.57 mg/dl (0-0.29); Magnesium 1.5 mg/dl (1.8-2.4); Phosphorus 4.5 mg/dl (2.5-4.9)
[2020-12-25] MEDS: HEPARIN SOD 5,000 UNIT/0.5 ML VIAL SQ SCH ×2 (09:34→20:50)
[2020-12-25] MEDS: FLUTICASONE/VILANTEROL 100/25MCG 14 PUFFS/INHALER INH SCH (09:34)
[2020-12-25] MEDS: GABAPENTIN 100 MG CAP PO SCH ×5 (09:35→20:51)
[2020-12-25] MEDS: ADVANCED PROBIOTIC 1250 MG CAPSULE PO SCH (09:35)
[2020-12-25] MEDS: MULTIVITAMIN TAB PO SCH (09:35)
[2020-12-25] MEDS: PANTOprazole 40 MG TAB PO SCH (09:35)
[2020-12-25] MEDS: amLODIPine BESYLATE 5 MG TAB PO SCH (09:38)
--- NOTE | 2020-12-25 09:40 | Hospitalist Progress Note ---
Date of Service December 23, 2020 Assessment & Plan (1) SOB (shortness of breath): Plan: Toxic metabolic encephalopathy Acute respiratory failure - last night patient was code purple, unresponsive, received Narcan, then became more awake and alert Respiratory failure, ABG obtained, pH showed acidosis Patient also obtained a half amp of bicarb overnight This morning patient feeling much better, more awake breathing without difficulty however using supplemental oxygen (2L) Increased somnolence Patient is able to answer questions appropriately however somnolent Likely secondary to opiate use and gabapentin use especially now with IVAN on CKD Hold gabapentin, oxycodone decreased from 10 mg to 5 mg, only give as needed Continue closely monitor respiratory and hemodynamic status Discussed with nephrology, resume gabapentin at lower dose at 100 TID Initial concern for poss. PE - ruled out Rule out PE given abnormal D-dimer and malignancy history VQ scan, LE Dopplers obtained for PE work-up Both negative therefore IV heparin was stopped Currently breathing on room air, denies any shortness of breath Hypertension, elevated on admission secondary to illness BP on 12/21 - on lower side, instructed nurse to take off clonidine patch, and will give small bolus of normal saline 12/22 - BP continues to be on lower side - hold amlodipine, hold clonidine, continue IV fluids, continue to closely monitor Abdominal pain nausea vomiting diarrhea History gastroparesis status post gastric pacemaker Possible opioid withdrawal, history chronic pain on narcotics prior history confinement for opiate withdrawal secondary to running out of narcotic medications Rule out C. difficile, c. diff ordered - patient had no BM Judicious narcotic use, suspect possible misuse (As per conversation with ER medication respiratory care specialist, patient not forthcoming about information regarding his Fentanyl patch being switched to Morphine Sulfate ER twice daily by PCP last month due to Fentanyl cost issues.) 12/21 -Per nursing staff, patient was doing well earlier that day, however in the afternoon became extremely somnolent Nursing staff concerned about misuse of opiates, checked patient's bag, found his home oxycodone (these were now taken by the staff) 12/22 -patient reports pain with urination, and suprapubic tenderness UA on admission unremarkable, will repeat UA Creatinine also elevated bladder distended noted on CT on admission obtained bladder scan, Placed Peace IVAN on CKD 3secondary to illness Baseline UA, monitor creatinine response to IV fluids UA on 12/20 -unremarkable Cr on 12/21 - Cr 2.4 (on admission 12/20 Cr 2.2) Cr 3 on 12/22 -also bladder distended on CT on admission we will repeat UA, will obtain bladder scan and possibly straight cathed/Place Peace as may be obstructive in nature 12/22 - Straight cath for 1250 mL, Peace catheter placed, repeat UA negative Nephrology following DM1 - suboptimal control as of recent outpatient hemoglobin A1c of 11.6 % June 2020 current Hgb A1c 11.4% - Basal insulin adjusted for clear liquid diet for now, ISS BG goal 110-140, update hemoglobin A1c NSCLC stage III, status post surgery, incomplete chemotherapy secondary to intolerance -stable disease as per last oncology note from last month Follows with Dr. 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 Heparin Full code Admission and Anticipated Discharge Date Admission Date: December 21, 2020 Subjective Patient was code purple overnight, received Narcan, mental status much improved, patient was then communicative and awake alert He was transferred to PCU for further monitoring, possible Narcan drip Currently this morning he sitting up in bed, he is more awake, answers most questions appropriately, still however somewhat somnolent Currently denies any pain, specifically denies any back pain No shortness of breath or chest pain Peace catheter in Review of Systems Review of Systems: All systems reviewed & are unremarkable except as noted in Subjective Physical Exam Physical Exam: GENERAL: thin male in no respiratory distress HEENT: NC, EOMI, pupils equal and constricted, pale palpebral conjunctivae NECK : Supple, no tenderness CHEST : decreased breath sounds, but overall CTAB HEART : RRR, no obvious murmurs ABDOMEN: soft, non tender to palp., + bowel sounds EXTREMITIES : No LE swelling/tenderness, moves extremities NEUROLOGIC : Somnolent but easily arousable more awake than yesterday, able to answer questions appropriately, no facial asymmetry, moves extremities SKIN: pallor, warm Results & Data Results & Data ([facility]) Vital Signs (Past 12 Hours)
[2020-12-25] MEDS: MAGNESIUM SULFATE / D5W 1 GM/100 ML BAG IV SCH ×2 (09:44→11:50)
[2020-12-25] MEDS: MAGNESIUM OXIDE 400 MG TAB PO SCH ×2 (09:46→20:52)
--- NOTE | 2020-12-25 09:52 | Hospitalist Progress Note ---
Date of Service December 24, 2020 Assessment & Plan (1) SOB (shortness of breath): Plan: Toxic metabolic encephalopathy Acute respiratory failure - last night patient was code purple, unresponsive, received Narcan, then became more awake and alert Respiratory failure, ABG obtained, pH showed acidosis Patient also obtained a half amp of bicarb overnight 12/23 - morning patient feeling much better, more awake breathing without difficulty however using supplemental oxygen (2L) 12/24 -Per nursing staff, noted patient more shaky contractures of hands, obtained CT head, negative Neurology also consulted Vitamin B1 and B12 levels ordered Increased somnolence Patient is able to answer questions appropriately however somnolent Likely secondary to opiate use and gabapentin use especially now with IVAN on CKD Hold gabapentin, oxycodone decreased from 10 mg to 5 mg, only give as needed Continue closely monitor respiratory and hemodynamic status Discussed with nephrology, resume gabapentin at lower dose at 100 TID Blood culture - negative, UA - negative CXR - Patchy airspace opacities within the right and left lungs which could represent multifocal pneumonia or related to aspiration. Diffuse prominence of pulmonary interstitium might be seen in infectious/inflammatory process or in pulmonary edema. Pt on clinda + dapto (12/24) CT head repeated - negative Neurology also consulted Vitamin B1 and B12 levels ordered L ring finger ulcer -Noted left ring finger ulcer by nursing staff ESR and CRP elevated, procalcitonin elevated Not clear if procalcitonin is elevated from his respiratory/unresponsive episode Patient started on clindamycin after his code purple, will add Dapto for now Obtained wound culture Obtain x-ray of left hand (unable to obtain imaging with contrast due to renal failure, patient would not be able to have MRI due to lack of cooperation) Wound nurse also consulted, may need further evaluation by orthopedics Initial concern for poss. PE - ruled out Rule out PE given abnormal D-dimer and malignancy history VQ scan, LE Dopplers obtained for PE work-up Both negative therefore IV heparin was stopped Since admission breathing on room air, denies any shortness of breath (after code purple, unresponsive episode - sems d/t opioid use?, resp. failure, on 2L of O2) 12/25 back on RA, breathing w/o difficulty Hypertension, elevated on admission secondary to illness BP on 12/21 - on lower side, instructed nurse to take off clonidine patch, and will give small bolus of normal saline 12/22 - BP continues to be on lower side - hold amlodipine, hold clonidine, continue IV fluids, continue to closely monitor 12/24 -blood pressure now again increased, resume amlodipine stop IV fluids, continue to closely monitor Abdominal pain nausea vomiting diarrhea History gastroparesis status post gastric pacemaker Possible opioid withdrawal, history chronic pain on narcotics prior history confinement for opiate withdrawal secondary to running out of narcotic medications Rule out C. difficile, c. diff ordered - patient had no BM Judicious narcotic use, suspect possible misuse (As per conversation with ER medication pest control specialist, patient not forthcoming about information regarding his Fentanyl patch being switched to Morphine Sulfate ER twice daily by PCP last month due to Fentanyl cost issues.) 12/21 -Per nursing staff, patient was doing well earlier that day, however in the afternoon became extremely somnolent Nursing staff concerned about misuse of opiates, checked patient's bag, found his home oxycodone (these were now taken by the staff) 12/22 -patient reports pain with urination, and suprapubic tenderness UA on admission unremarkable, will repeat UA Creatinine also elevated bladder distended noted on CT on admission obtained bladder scan, Placed Peace IVAN on CKD 3 secondary to illness Baseline UA, monitor creatinine response to IV fluids UA on 12/20 -unremarkable Cr on 12/21 - Cr 2.4 (on admission 12/20 Cr 2.2) Cr 3 on 12/22 -also bladder distended on CT on admission we will repeat UA, will obtain bladder scan and possibly straight cathed/Place Peace as may be obstructive in nature 12/22 - Straight cath for 1250 mL, Peace catheter placed, repeat UA negative Nephrology following Cr slightly improved DM1 - suboptimal control as of recent outpatient hemoglobin A1c of 11.6 % June 2020 current Hgb A1c 11.4% - Basal insulin adjusted for clear liquid diet for now, ISS BG goal 110-140, update hemoglobin A1c NSCLC stage III, status post surgery, incomplete chemotherapy secondary to intolerance -stable disease as per last oncology note from last month Follows with Dr. 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 Heparin Full code Admission and Anticipated Discharge Date Admission Date: December 21, 2020 Subjective Patient was code purple 2 nights ago, received Narcan, mental status much improved, patient was then communicative and awake alert He was transferred to PCU for further monitoring, possible Narcan drip Currently this morning he sitting up in bed, he is more awake, answers most questions appropriately, still however somewhat somnolent Currently denies any pain, specifically denies any back pain No shortness of breath or chest pain Peace catheter in Nursing staff noticed increased shakiness, also ulcer on his left ring finger Obtained repeat a CT scan of the head, ESR CRP, and x-ray of left hand to evaluate for possible osteomyelitis Wound culture also obtained on left ring finger wound, wound nurse consulted Added daptomycin for now In addition blood pressure is now increased, gave patient amlodipine. Previously amlodipine and clonidine were removed due to low blood pressures. IV fluids were also stopped. Review of Systems Review of Systems: All systems reviewed & are unremarkable except as noted in Subjective Physical Exam Physical Exam: GENERAL: thin male in no respiratory distress HEENT: NC, EOMI, pupils equal and constricted, pale palpebral conjunctivae NECK : Supple, no tenderness CHEST : decreased breath sounds, + course breath sounds HEART : RRR, no obvious murmurs ABDOMEN: soft, non tender to palp., + bowel sounds EXTREMITIES : No LE swelling/tenderness, moves extremities NEUROLOGIC : Somnolent but easily arousable more awake than previously, able to answer questions appropriately, no facial asymmetry, moves extremities SKIN: pallor, warm Results & Data Results & Data ([facility]) Vital Signs (Past 12 Hours) Vital Signs Temp Pulse Pulse Resp BP Pulse Ox 12/25/20 00:01 89 12/25/20 00:00 184/81 H 12/24/20 23:28 36.5 C 90 18 184/96 H 95 Laboratory Results 12/25/20 12/25/20 12/25/20 Range/Units 07:44 07:44 07:44 WBC (4.8-10.8) K/uL RBC (4.7-6.1) M/uL Hgb (14.0-18.0) g/dL Hct (42-52) % MCV (80-100) fL MCH (25-34) pg MCHC (32-36) g/dL RDW Std Deviation (36.4-46.3) fL RDW Coeff of Rik (11.5-14.5) % Plt Count (130-400) K/uL MPV (7.4-10.4) fL ESR 61 H (0-20) mm/hr POC Glucose (70-99) mg/dl Phosphorus (2.5-4.9) mg/dl Magnesium (1.8-2.4) mg/dl C-Reactive Protein (0-0.29) mg/dl Vitamin B1 Pending Vitamin B12 643 (193-986) pg/ml Levetiracetam 12/25/20 12/25/20 12/25/20 Range/Units 07:44 07:44 05:58 WBC 6.13 (4.8-10.8) K/uL RBC 2.94 L (4.7-6.1) M/uL Hgb 8.5 L (14.0-18.0) g/dL Hct 25.7 L (42-52) % MCV 87.4 (80-100) fL MCH 28.9 (25-34) pg MCHC 33.1 (32-36) g/dL RDW Std Deviation 42.1 (36.4-46.3) fL RDW Coeff of Rik 13.0 (11.5-14.5) % Plt Count 306 (130-400) K/uL MPV 9.8 (7.4-10.4) fL ESR (0-20) mm/hr POC Glucose 136 H (70-99) mg/dl Phosphorus 4.5 (2.5-4.9) mg/dl Magnesium 1.5 L (1.8-2.4) mg/dl C-Reactive Protein 5.57 H (0-0.29) mg/dl Vitamin B1 Vitamin B12 (193-986) pg/ml Levetiracetam 12/24/20 12/24/20 12/24/20 Range/Units 23:50 17:31 13:40 WBC (4.8-10.8) K/uL RBC (4.7-6.1) M/uL Hgb (14.0-18.0) g/dL Hct (42-52) % MCV (80-100) fL MCH (25-34) pg MCHC (32-36) g/dL RDW Std Deviation (36.4-46.3) fL RDW Coeff of Rik (11.5-14.5) % Plt Count (130-400) K/uL MPV (7.4-10.4) fL ESR (0-20) mm/hr POC Glucose 162 H 107 H (70-99) mg/dl Phosphorus (2.5-4.9) mg/dl Magnesium (1.8-2.4) mg/dl C-Reactive Protein (0-0.29) mg/dl Vitamin B1 Vitamin B12 (193-986) pg/ml Levetiracetam Pending 12/24/20 12/24/20 12/24/20 Range/Units 11:21 08:33 08:33 WBC (4.8-10.8) K/uL RBC (4.7-6.1) M/uL Hgb (14.0-18.0) g/dL Hct (42-52) % MCV (80-100) fL MCH (25-34) pg MCHC (32-36) g/dL RDW Std Deviation (36.4-46.3) fL RDW Coeff of Rik (11.5-14.5) % Plt Count (130-400) K/uL MPV (7.4-10.4) fL ESR 55 H (0-20) mm/hr POC Glucose 150 H (70-99) mg/dl Phosphorus (2.5-4.9) mg/dl Magnesium (1.8-2.4) mg/dl C-Reactive Protein 6.61 H (0-0.29) mg/dl Vitamin B1 Vitamin B12 (193-986) pg/ml Levetiracetam
--- NOTE | 2020-12-25 10:06 | Nephrology Progress Note ---
Date of Service December 25, 2020 Assessment & Plan (1) Renal failure (ARF), acute on chronic: Plan: -Renal function and has worsened since arrival; creat peaked at 3.2 on 07/22; this has improved to 2.76 yesterday, labs from today awaited -His blood pressure has been fairly labile >> from 150-170s or higher systolic to 90s, clonidine patch has been removed -However his blood pressure has been in 170s agree with restarting on (amlodipine and diuretic initially) and adding her home medications , over the next few days. -Urine output has been around 5 L in the last 24 hours, likely post ATN diuresis, this should settle in the next 48 hours, if not he needs to be started on half-normal saline, replacing two thirds of total urine output. -continue efforts to minimize lability in BG and BP (2) Altered mental status: Plan: -Mental status better after Narcan and improved renal function. Admission and Anticipated Discharge Date Admission Date: December 21, 2020 Subjective More alert and communicative today Blood pressure is raised. Review of Systems Respiratory: no dyspnea Musculoskeletal: Comfortable Physical Exam Physical Exam: Constitutional: WD/WN, vitals as above ; no acute distress Eyes: + anicteric sclerae; no conjunctival abnormality Respiratory: normal respiratory effort; no respiratory distress and no labored breathing Auscultation: lungs clear to auscultation bilaterally; no rales, no rhonchi and no wheezes Cardiovascular: Rate/Rhythm: Normal Heart Sounds: no gallop and no cardiac rub Extremities: no calf tenderness and no pedal edema Gastrointestinal (Abdomen): Inspection/Auscultation: normal bowel sounds; abdomen not distended Musculoskeletal: Head/Neck/Chest: normocephalic, head atraumatic and neck supple Skin: no rashes and no jaundice Neurologic: moves all extremities; no focal motor deficits and not confused Results & Data ([facility]) Vital Signs (Past 12 Hours) Vital Signs Temp Pulse Pulse Resp BP Pulse Ox 12/25/20 09:31 177/88 H 12/25/20 08:01 36.6 C 82 20 174/102 H 95 12/25/20 07:40 87 12/25/20 06:12 87 181/97 H 12/25/20 03:41 36.9 C 87 20 188/90 H 98 12/25/20 00:01 89 08/22/21 00:00 184/81 H 12/24/20 23:28 36.5 C 90 18 184/96 H 95 Laboratory Results 12/25/20 07:44 (1) Renal failure (ARF), acute on chronic Chronic kidney disease stage: stage 4 (severe)
--- NOTE | 2020-12-25 10:11 | Hospitalist Progress Note ---
Date of Service December 25, 2020 Assessment & Plan (1) SOB (shortness of breath): Plan: Toxic metabolic encephalopathy Acute respiratory failure - last night patient was code purple, unresponsive, received Narcan, then became more awake and alert Respiratory failure, ABG obtained, pH showed acidosis Patient also obtained a half amp of bicarb overnight 12/23 - morning patient feeling much better, more awake breathing without difficulty however using supplemental oxygen (2L) 12/24 -Per nursing staff, noted patient more shaky contractures of hands, obtained CT head, negative Neurology also consulted History of seizure, Keppra dose reduced, this was discussed with pharmacy given renal function, Keppra level ordered - pending Vitamin B1 and B12 levels ordered B12 level normal (however patient also been on multivitamin since admission here) Increased somnolence 12/21 -Per nursing staff, patient was doing well earlier that day, however in the afternoon became extremely somnolent Nursing staff concerned about misuse of opiates, checked patient's bag, found his home oxycodone (these were now taken by the staff) Patient also had several hypoglycemic episodes, glycemic pharmacy on board Patient is able to answer questions appropriately however somnolent Likely secondary to opiate use and gabapentin use especially now with IVAN on CKD Hold gabapentin, oxycodone decreased from 10 mg to 5 mg, only give as needed Continue closely monitor respiratory and hemodynamic status Discussed with nephrology, resume gabapentin at lower dose at 100 TID Blood culture - negative, UA - negative CXR - Patchy airspace opacities within the right and left lungs which could represent multifocal pneumonia or related to aspiration. Diffuse prominence of pulmonary interstitium might be seen in infectious/inflammatory process or in pulmonary edema. Pt on clinda + dapto (12/24) CT head repeated - negative Neurology also consulted Vitamin B1 and B12 levels ordered (however patient has been on multivitamins since his admission here) 12/25 - most awake and aware, able to have conversation and follow commands, however now reports pain all over, chronic L ring finger wound/ulcer -Noted left ring finger ulcer by nursing staff ESR and CRP elevated, procalcitonin elevated Not clear if procalcitonin is elevated from his respiratory/unresponsive episode Patient started on clindamycin after his code purple, added Dapto for now Obtained wound culture - Staph species, follow final culture Obtained x-ray of left hand (unable to obtain imaging with contrast due to renal failure, patient would not be able to have MRI due to lack of cooperation) Wound nurse also consulted, may need further evaluation by orthopedics 12/25 -patient more awake and cooperative, will try to reimage the left hand Initial concern for poss. PE (on admission) - ruled out Rule out PE given abnormal D-dimer and malignancy history VQ scan, LE Dopplers obtained for PE work-up Both negative therefore IV heparin was stopped Since admission breathing on room air, denies any shortness of breath (after code purple, unresponsive episode - seems d/t opioid use?, resp. failure, on 2L of O2) 12/25 back on RA, breathing w/o difficulty Hypertension elevated on admission secondary to illness BP on 12/21 - on lower side, instructed nurse to take off clonidine patch, and will give small bolus of normal saline 12/22 - BP continues to be on lower side - hold amlodipine, hold clonidine, continue IV fluids, continue to closely monitor 12/24 -blood pressure now again increased, resume amlodipine stop IV fluids, continue to closely monitor Also can be due to opioid withdrawal now,12/25 - patient awake alert, and complaining of chronic pain Abdominal pain nausea vomiting diarrhea - POA, now resolved History gastroparesis status post gastric pacemaker Possible opioid withdrawal, history chronic pain on narcotics prior history confinement for opiate withdrawal secondary to running out of narcotic medications Rule out C. difficile, c. diff ordered - patient had no BM Judicious narcotic use, suspect possible misuse (As per conversation with ER medication librarian specialist, patient not forthcoming about information regarding his Fentanyl patch being switched to Morphine Sulfate ER twice daily by PCP last month due to Fentanyl cost issues.) Urinary retention 12/22 -patient reports pain with urination, and suprapubic tenderness UA on admission unremarkable, will repeat UA Creatinine also elevated bladder distended noted on CT on admission obtained bladder scan, Placed Peace IVAN on CKD 3 secondary to illness Baseline UA, monitor creatinine response to IV fluids UA on 12/20 -unremarkable Cr on 12/21 - Cr 2.4 (on admission 12/20 Cr 2.2) Cr 3 on 12/22 -also bladder distended on CT on admission we will repeat UA, will obtain bladder scan and possibly straight cathed/Place Peace as may be obstructive in nature 12/22 - Straight cath for 1250 mL, Peace catheter placed, repeat UA negative Nephrology following 12/25 Cr improved to 2.4 DM1 - suboptimal control as of recent outpatient hemoglobin A1c of 11.6 % June 2020 current Hgb A1c 11.4% - Basal insulin adjusted for clear liquid diet for now, ISS BG goal 110-140, update hemoglobin A1c NSCLC stage III, status post surgery, incomplete chemotherapy secondary to intolerance -stable disease as per last oncology note from last month Follows with Dr. 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 Heparin Full code Admission and Anticipated Discharge Date Admission Date: December 21, 2020 Subjective Patient was code purple 3 nights ago, received Narcan, mental status much improved, patient was then communicative and awake alert Currently this morning he sitting up in bed, awake and alert, able to communicate, most awake since I seen him He tells me he does not remember much from his hospital stay He does report pain all over, says it has come from his head all the way to his toes and its chronic Otherwise however no chest pain or shortness of breath, breathing on room air Neurology at the bedside Peace catheter in In addition blood pressure is now increased, resumed amlodipine and also clonidine. IV fluids were also stopped yesterday. Resume pain medications cautiously Keppra level pending Review of Systems Review of Systems: All systems reviewed & are unremarkable except as noted in Subjective Physical Exam Physical Exam: GENERAL: thin male in no respiratory distress HEENT: NC, EOMI, pupils equal and constricted, pale palpebral conjunctivae NECK : Supple, no tenderness CHEST : CTAB, no wheezing, crackles HEART : RRR, no obvious murmurs ABDOMEN: soft, non tender to palp., + bowel sounds : + Peace EXTREMITIES : No LE swelling/tenderness, moves extremities, left ring finger with ulcer/wound NEUROLOGIC : much more awake than previously, able to answer questions appropriately, no facial asymmetry, moves extremities SKIN: pallor, warm Results & Data Results & Data ([facility]) Vital Signs (Past 12 Hours) Vital Signs Temp Pulse Pulse Resp BP Pulse Ox 12/25/20 09:31 177/88 H 12/25/20 08:01 36.6 C 82 20 174/102 H 95 12/25/20 07:40 87 12/25/20 06:12 87 181/97 H 12/25/20 03:41 36.9 C 87 20 188/90 H 98 12/25/20 00:01 89 12/25/20 00:00 184/81 H 12/24/20 23:28 36.5 C 90 18 184/96 H 95 Laboratory Results 12/25/20 12/25/20 12/25/20 Range/Units 10:23 07:44 07:44 WBC (4.8-10.8) K/uL RBC (4.7-6.1) M/uL Hgb (14.0-18.0) g/dL Hct (42-52) % MCV (80-100) fL MCH (25-34) pg MCHC (32-36) g/dL RDW Std Deviation (36.4-46.3) fL RDW Coeff of Rik (11.5-14.5) % Plt Count (130-400) K/uL MPV (7.4-10.4) fL ESR 61 H (0-20) mm/hr Sodium 143 (136-145) mmol/L Potassium 3.8 (3.5-5.1) mmol/L Chloride 110 H (98-107) mmol/L Carbon Dioxide 22 (21-32) mmol/L Anion Gap 11.0 (3-11) BUN 22 H (7-18) mg/dl Creatinine 2.37 H D (0.6-1.4) mg/dl Est Cr Clr Drug Dosing 34.1 ml/min Est GFR ( Amer) 34.4 ml/min Est GFR (Non-Af Amer) 29.7 ml/min BUN/Creatinine Ratio 9.5 L (10-20) Glucose 152 H (70-99) mg/dl POC Glucose (70-99) mg/dl Calcium 8.2 L (8.5-10.1) mg/dl Phosphorus (2.5-4.9) mg/dl Magnesium (1.8-2.4) mg/dl C-Reactive Protein (0-0.29) mg/dl Vitamin B1 Pending Vitamin B12 (193-986) pg/ml Levetiracetam 12/25/20 12/25/20 12/25/20 Range/Units 07:44 07:44 07:44 WBC 6.13 (4.8-10.8) K/uL RBC 2.94 L (4.7-6.1) M/uL Hgb 8.5 L (14.0-18.0) g/dL Hct 25.7 L (42-52) % MCV 87.4 (80-100) fL MCH 28.9 (25-34) pg MCHC 33.1 (32-36) g/dL RDW Std Deviation 42.1 (36.4-46.3) fL RDW Coeff of Rik 13.0 (11.5-14.5) % Plt Count 306 (130-400) K/uL MPV 9.8 (7.4-10.4) fL ESR (0-20) mm/hr Sodium (136-145) mmol/L Potassium (3.5-5.1) mmol/L Chloride (98-107) mmol/L Carbon Dioxide (21-32) mmol/L Anion Gap (3-11) BUN (7-18) mg/dl Creatinine (0.6-1.4) mg/dl Est Cr Clr Drug Dosing ml/min Est GFR ( Amer) ml/min Est GFR (Non-Af Amer) ml/min BUN/Creatinine Ratio (10-20) Glucose (70-99) mg/dl POC Glucose (70-99) mg/dl Calcium (8.5-10.1) mg/dl Phosphorus 4.5 (2.5-4.9) mg/dl Magnesium 1.5 L (1.8-2.4) mg/dl C-Reactive Protein 5.57 H (0-0.29) mg/dl Vitamin B1 Vitamin B12 643 (193-986) pg/ml Levetiracetam 12/25/20 12/24/20 12/24/20 Range/Units 05:58 23:50 17:31 WBC (4.8-10.8) K/uL RBC (4.7-6.1) M/uL Hgb (14.0-18.0) g/dL Hct (42-52) % MCV (80-100) fL MCH (25-34) pg MCHC (32-36) g/dL RDW Std Deviation (36.4-46.3) fL RDW Coeff of Rik (11.5-14.5) % Plt Count (130-400) K/uL MPV (7.4-10.4) fL ESR (0-20) mm/hr Sodium (136-145) mmol/L Potassium (3.5-5.1) mmol/L Chloride (98-107) mmol/L Carbon Dioxide (21-32) mmol/L Anion Gap (3-11) BUN (7-18) mg/dl Creatinine (0.6-1.4) mg/dl Est Cr Clr Drug Dosing ml/min Est GFR ( Amer) ml/min Est GFR (Non-Af Amer) ml/min BUN/Creatinine Ratio (10-20) Glucose (70-99) mg/dl POC Glucose 136 H 162 H 107 H (70-99) mg/dl Calcium (8.5-10.1) mg/dl Phosphorus (2.5-4.9) mg/dl Magnesium (1.8-2.4) mg/dl C-Reactive Protein (0-0.29) mg/dl Vitamin B1 Vitamin B12 (193-986) pg/ml Levetiracetam 12/24/20 12/24/20 12/24/20 Range/Units 13:40 08:33 08:33 WBC (4.8-10.8) K/uL RBC (4.7-6.1) M/uL Hgb (14.0-18.0) g/dL Hct (42-52) % MCV (80-100) fL MCH (25-34) pg MCHC (32-36) g/dL RDW Std Deviation (36.4-46.3) fL RDW Coeff of Rik (11.5-14.5) % Plt Count (130-400) K/uL MPV (7.4-10.4) fL ESR 55 H (0-20) mm/hr Sodium (136-145) mmol/L Potassium (3.5-5.1) mmol/L Chloride (98-107) mmol/L Carbon Dioxide (21-32) mmol/L Anion Gap (3-11) BUN (7-18) mg/dl Creatinine (0.6-1.4) mg/dl Est Cr Clr Drug Dosing ml/min Est GFR ( Amer) ml/min Est GFR (Non-Af Amer) ml/min BUN/Creatinine Ratio (10-20) Glucose (70-99) mg/dl POC Glucose (70-99) mg/dl Calcium (8.5-10.1) mg/dl Phosphorus (2.5-4.9) mg/dl Magnesium (1.8-2.4) mg/dl C-Reactive Protein 6.61 H (0-0.29) mg/dl Vitamin B1 Vitamin B12 (193-986) pg/ml Levetiracetam Pending Medications Administered Current Inpatient Medications Amlodipine Besylate (Amlodipine Besylate 5 Mg Tab) 5 mg PO QAM DAMIR Stop: 01/20/21 08:59 Last Admin: 12/25/20 09:38 Dose: 5 mg Documented by: Clonidine HCl (Clonidine Hcl 0.2 Mg/24 Hr Transderm Sys) 1 patch TD Q7D@0600 DAMIR Stop: 01/19/21 05:59 Last Admin: 12/20/20 06:04 Dose: 1 patch Documented by: Cyanocobalamin (Cyanocobalamin 500 Mcg Tablet (Vitamin B-12)) 1,000 mcg PO QAM [facility] Stop: 01/24/21 10:14 Dextrose (Dextrose 50% 50 Ml Syringe) 25 - 50 ml IV UD PRN; Protocol PRN Reason: Hypoglycemia Protocol Stop: 01/19/21 13:40 Last Admin: 12/23/20 07:19 Dose: 50 ml Documented by: Escitalopram Oxalate (Escitalopram Oxalate 10 Mg Tab) 5 mg PO DAILY [facility] Stop: 01/24/21 10:14 Fluticasone/Vilanterol (Fluticasone/Vilanterol 100/25mcg 14 Puffs/Inhaler) 1 puffs INH DAILY [facility] Stop: 01/19/21 08:59 Last Admin: 12/25/20 09:34 Dose: 1 puffs Documented by: Gabapentin (Gabapentin 300 Mg Cap) 300 mg PO TID [facility] Stop: 01/19/21 09:16 Last Admin: 12/22/20 08:13 Dose: 300 mg Documented by: Gabapentin (Gabapentin 100 Mg Cap) 100 mg PO TID [facility] Stop: 01/22/21 20:59 Last Admin: 12/25/20 09:35 Dose: 100 mg Documented by: Glucagon (Glucagon For Inj 1 Mg Vial) 1 mg SQ UD PRN; Protocol PRN Reason: Hypoglycemia Protocol Stop: 01/19/21 13:40 Glucose (Glucose 10 Tabs/Tube) 4 - 8 tabs PO UD PRN; Protocol PRN Reason: Hypoglycemia Protocol Stop: 01/19/21 13:40 Glucose (Glucose 40% Gel 15 Gm Tube) 15 - 30 gm PO UD PRN; Protocol PRN Reason: Hypoglycemia Protocol Stop: 01/19/21 13:40 Heparin Sodium (Porcine) (Heparin Sod 5,000 Unit/0.5 Ml Vial) 5,000 units SQ Q12 [facility] Stop: 01/19/21 20:59 Last Admin: 12/25/20 09:34 Dose: 5,000 units Documented by: Promethazine HCl 12.5 mg/ (Sodium Chloride) 50.5 mls @ 202 mls/hr IV Q6H PRN PRN Reason: Nausea And Vomiting Stop: 01/19/21 09:16 Last Infusion: 12/21/20 08:07 Dose: Infused Documented by: Naloxone HCl 5 mg/ Sodium (Chloride) 112.5 mls @ 8.325 mls/hr IV .[id number] [facility]; Protocol Stop: 01/22/21 01:59 Last Admin: 12/23/20 04:53 Dose: Not Given Documented by: Levetiracetam 500 mg/ Sodium (Chloride) 105 mls @ 420 mls/hr IV Q12H [facility] Stop: 01/22/21 02:59 Last Infusion: 12/25/20 03:35 Dose: Infused Documented by: Clindamycin Phosphate 600 mg/ (Dextrose) 54 mls @ 100 mls/hr IV Q8H [facility] Stop: 12/25/20 13:59 Last Admin: 12/25/20 09:45 Dose: 100 mls/hr Documented by: Daptomycin 400 mg/ Syringe 8 mls @ 4 mls/min IV Q24H [facility]; Protocol Stop: 02/04/21 15:59 Last Admin: 12/24/20 17:36 Dose: 4 mls/min Documented by: Magnesium Sulfate/Dextrose (Magnesium Sulfate / D5w) 1 gm in 100 mls @ 50 mls/hr IV Q2H [facility] Stop: 12/25/20 13:29 Last Admin: 12/25/20 09:44 Dose: 50 mls/hr Documented by: Thiamine HCl 100 mg/ Syringe 10 mls @ 2 mls/min IV QAM [facility] Stop: 01/24/21 10:14 Insulin Human Regular (Insulin Human Regular) 0 units SC Q6 [facility]; Protocol Stop: 01/23/21 00:00 Last Admin: 12/25/20 06:03 Dose: 1 units Documented by: Labetalol HCl (Labetalol Hcl Iv 5 Mg/Ml 20ml) 10 mg IV Q4H PRN PRN Reason: Hypertension Stop: 01/23/21 19:31 Last Admin: 12/25/20 06:21 Dose: 10 mg Documented by: Lactobacillus Acidoph/Casei/Rhamnos (Advanced Probiotic 1250 Mg Capsule) 2 cap PO DAILY [facility] Stop: 01/22/21 17:29 Last Admin: 12/25/20 09:35 Dose: 2 cap Documented by: Magnesium Oxide (Magnesium Oxide 400 Mg Tab) 400 mg PO BID [facility] Stop: 01/24/21 09:14 Last Admin: 12/25/20 09:46 Dose: 400 mg Documented by: Miscellaneous (Remove Clonidine Patch) 1 ea N/A CQWK@[id number] [facility] Stop: 01/19/21 05:58 Last Admin: 12/21/20 16:15 Dose: 1 ea Documented by: Miscellaneous (Check Clonidine Patch Placement) 1 ea N/A QS [facility] Stop: 01/19/21 07:59 Last Admin: 12/22/20 07:08 Dose: Not Given Documented by: Miscellaneous (Carbohydrates For Hypoglycemia ) 15 - 30 gm PO UD PRN PRN Reason: Hypoglycemia Protocol Stop: 01/19/21 13:40 Miscellaneous Information (Pharmacy Glycemic Mgmt Consult) 1 ea N/A UD PRN; Protocol PRN Reason: Consult Stop: 01/19/21 13:40 Miscellaneous Information (Daptomycin Consult Active) 1 ea N/A UD PRN PRN Reason: Consult Stop: 01/23/21 15:50 Morphine Sulfate (Morphine Sulfate Cr 60 Mg Tabcr) 60 mg PO BID [facility] Stop: 01/03/21 09:29 Last Admin: 12/22/20 08:23 Dose: Not Given Documented by: Multivitamins (Multivitamin Tab) 1 tab PO QAM [facility] Stop: 01/19/21 09:16 Last Admin: 12/25/20 09:35 Dose: 1 tab Documented by: Pantoprazole Sodium (Pantoprazole 40 Mg Tab) 40 mg PO [facility] Stop: 01/19/21 09:16 Last Admin: 12/25/20 09:35 Dose: 40 mg Documented by:
[2020-12-25 11:00] LABS: BUN Creatinine Ratio 9.5 (10-20); Calcium 8.2 mg/dl (8.5-10.1); Creatinine Clr Calc Pharmacy 34.1 ml/min; Est GFR (African American) 34.4 ml/min; Est GFR (Non-African American) 29.7 ml/min; Potassium 3.8 mmol/L (3.5-5.1)
[2020-12-25] MEDS ORDERED: GABAPENTIN 100 MG CAP PO STA (11:16)
[2020-12-25] MEDS: CYANOCOBALAMIN 500 MCG TABLET (VITAMIN B-12) PO SCH (11:19)
[2020-12-25] MEDS: THIAMINE HCL 100 MG in SYRINGE 9 ML IV SCH (11:19)
[2020-12-25] MEDS: ESCITALOPRAM OXALATE 10 MG TAB PO SCH (11:19)
[2020-12-25] MEDS: oxyCODONE HCL IR 5 MG TAB (IMMEDIATE RELEASE) PO PRN (11:40)
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
[2020-12-25] MEDS: DAPTOmycin 400 MG in SYRINGE 0 ML IV SCH (15:50)
[2020-12-25] MEDS: CHECK CLONIDINE PATCH PLACEMENT SCH (15:54)
[2020-12-26] MEDS: INSULIN HUMAN REGULAR SC SCH ×4 (00:18→18:03)
[2020-12-26] MEDS: CHECK CLONIDINE PATCH PLACEMENT SCH ×3 (00:26→16:41)
[2020-12-26] MEDS: oxyCODONE HCL IR 5 MG TAB (IMMEDIATE RELEASE) PO PRN ×2 (04:52→21:39)
[2020-12-26 08:03] LABS: Hematocrit (blood only) 26.4 % (42-52); Hemoglobin 8.9 g/dL (14.0-18.0); Mean Corpuscular Hemoglobin 29.2 pg (25-34); Mean Corpuscular Hgb Conc 33.7 g/dL (32-36); Mean Corpuscular Volume 86.6 fL (80-100); Mean Platelet Volume 9.2 fL (7.4-10.4); Platelet Count 305 K/uL (130-400); RDW Coefficient of Variation 12.9 % (11.5-14.5); RDW Standard Deviation 40.9 fL (36.4-46.3); Red Blood Count 3.05 M/uL (4.7-6.1); White Blood Count 6.08 K/uL (4.8-10.8)
[2020-12-26] MEDS: MAGNESIUM OXIDE 400 MG TAB PO SCH ×2 (08:14→20:10)
[2020-12-26] MEDS: ESCITALOPRAM OXALATE 10 MG TAB PO SCH (08:14)
[2020-12-26] MEDS: CYANOCOBALAMIN 500 MCG TABLET (VITAMIN B-12) PO SCH (08:14)
[2020-12-26] MEDS: HEPARIN SOD 5,000 UNIT/0.5 ML VIAL SQ SCH ×2 (08:15→20:09)
[2020-12-26] MEDS: PANTOprazole 40 MG TAB PO SCH (08:15)
[2020-12-26] MEDS: ADVANCED PROBIOTIC 1250 MG CAPSULE PO SCH (08:15)
[2020-12-26] MEDS: MULTIVITAMIN TAB PO SCH (08:15)
[2020-12-26] MEDS: THIAMINE HCL 100 MG in SYRINGE 9 ML IV SCH (08:16)
[2020-12-26] MEDS: GABAPENTIN 100 MG CAP PO SCH ×3 (08:16→20:08)
[2020-12-26] MEDS: FLUTICASONE/VILANTEROL 100/25MCG 14 PUFFS/INHALER INH SCH (08:17)
[2020-12-26 08:34] LABS: BUN Creatinine Ratio 8.8 (10-20); Calcium 8.1 mg/dl (8.5-10.1); Creatinine Clr Calc Pharmacy 30.4 ml/min; Est GFR (Non-African American) 25.8 ml/min; Magnesium 1.7 mg/dl (1.8-2.4); Potassium 3.9 mmol/L (3.5-5.1)
[2020-12-26 08:36] LABS: Phosphorus 3.1 mg/dl (2.5-4.9)
[2020-12-26] MEDS: amLODIPine BESYLATE 5 MG TAB PO SCH (09:21)
--- NOTE | 2020-12-26 11:10 | Hospitalist Progress Note ---
Date of Service December 26, 2020 Assessment & Plan (1) SOB (shortness of breath): Plan: Toxic metabolic encephalopathy Acute respiratory failure - last night patient was code purple, unresponsive, received Narcan, then became more awake and alert Respiratory failure, ABG obtained, pH showed acidosis Patient also obtained a half amp of bicarb overnight 12/23 - morning patient feeling much better, more awake breathing without difficulty however using supplemental oxygen (2L) 12/24 -Per nursing staff, noted patient more shaky contractures of hands, obtained CT head, negative Neurology also consulted History of seizure, Keppra dose reduced, this was discussed with pharmacy given renal function, Keppra level ordered - pending Vitamin B1 and B12 levels ordered B12 level normal (however patient also been on multivitamin since admission here) EEG obtained this AM (12/26) Increased somnolence, hx of seizures 12/21 -Per nursing staff, patient was doing well earlier that day, however in the afternoon became extremely somnolent Nursing staff concerned about misuse of opiates, checked patient's bag, found his home oxycodone (these were now taken by the staff) Patient also had several hypoglycemic episodes, glycemic pharmacy on board Patient is able to answer questions appropriately however somnolent Likely secondary to opiate use and gabapentin use especially now with IVAN on CKD Hold gabapentin, oxycodone decreased from 10 mg to 5 mg, only give as needed Continue closely monitor respiratory and hemodynamic status Discussed with nephrology, resume gabapentin at lower dose at 100 TID Blood culture - negative, UA - negative CXR - Patchy airspace opacities within the right and left lungs which could represent multifocal pneumonia or related to aspiration. Diffuse prominence of pulmonary interstitium might be seen in infectious/inflammatory process or in pulmonary edema. Pt on clinda + dapto (12/24) CT head repeated - negative Neurology also consulted Vitamin B1 and B12 levels ordered (however patient has been on multivitamins since his admission here) 12/25 - most awake and aware, able to have conversation and follow commands, however now reports pain all over, chronic EEG obtained this AM (12/26) L ring finger wound/ulcer -Noted left ring finger ulcer by nursing staff ESR and CRP elevated, procalcitonin elevated Not clear if procalcitonin is elevated from his respiratory/unresponsive episode Patient started on clindamycin after his code purple, added Dapto for now Obtained wound culture - Staph species, follow final culture Obtained x-ray of left hand (unable to obtain imaging with contrast due to renal failure, patient would not be able to have MRI due to lack of cooperation) Pt cannot have MRI due to gastric pacemaker Wound nurse and orthopedics consulted 12/25 -patient more awake and cooperative, will try to reimage the left hand 12/26 -obtain CT of left hand, patient unable to obtain MRI due to gastric pacer Wound care and orthopedics evals Initial concern for poss. PE (on admission) - ruled out Rule out PE given abnormal D-dimer and malignancy history VQ scan, LE Dopplers obtained for PE work-up Both negative therefore IV heparin was stopped Since admission breathing on room air, denies any shortness of breath (after code purple, unresponsive episode - seems d/t opioid use?, resp. failure, on 2L of O2) 12/25 back on RA, breathing w/o difficulty Hypertension elevated on admission secondary to illness BP on 12/21 - on lower side, instructed nurse to take off clonidine patch, and will give small bolus of normal saline 12/22 - BP continues to be on lower side - hold amlodipine, hold clonidine, continue IV fluids, continue to closely monitor 12/24 -blood pressure now again increased, resume amlodipine stop IV fluids, continue to closely monitor Also can be due to opioid withdrawal now,12/25 - patient awake alert, and complaining of chronic pain 12/27 -patient denies any pain currently, however blood pressure elevated despite resuming home medications, amlodipine and clonidine Abdominal pain nausea vomiting diarrhea - POA, now resolved History gastroparesis status post gastric pacemaker Possible opioid withdrawal, history chronic pain on narcotics prior history confinement for opiate withdrawal secondary to running out of narcotic medications Rule out C. difficile, c. diff ordered - patient had no BM Judicious narcotic use, suspect possible misuse (As per conversation with ER medication leave specialist, patient not forthcoming about information regarding his Fentanyl patch being switched to Morphine Sulfate ER twice daily by PCP last month due to Fentanyl cost issues.) Urinary retention 12/22 -patient reports pain with urination, and suprapubic tenderness UA on admission unremarkable, will repeat UA Creatinine also elevated bladder distended noted on CT on admission obtained bladder scan, Placed Peace IVAN on CKD 3 secondary to illness Baseline UA, monitor creatinine response to IV fluids UA on 12/20 -unremarkable Cr on 12/21 - Cr 2.4 (on admission 12/20 Cr 2.2) Cr 3 on 12/22 -also bladder distended on CT on admission we will repeat UA, will obtain bladder scan and possibly straight cathed/Place Peace as may be obstructive in nature 12/22 - Straight cath for 1250 mL, Peace catheter placed, repeat UA negative Nephrology following 12/25 Cr improved to 2.4 12/26 -creatinine still elevated, IVAN not resolved DM1 - suboptimal control as of recent outpatient hemoglobin A1c of 11.6 % June 2020 current Hgb A1c 11.4% - Basal insulin adjusted for clear liquid diet for now, ISS BG goal 110-140, update hemoglobin A1c NSCLC stage III, status post surgery, incomplete chemotherapy secondary to intolerance -stable disease as per last oncology note from last month Follows with Dr. 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 Plan to restart Keppra at 750 twice daily as previously, pending improving renal function Chronic anemia, hemoglobin at baseline Past tobacco abuse DVT prophylaxis. Heparin Full code Admission and Anticipated Discharge Date Admission Date: December 21, 2020 Subjective Patient was code purple several nights ago, received Narcan, mental status much improved, patient was then communicative and awake alert Currently he lying in bed, sleeping however easily arousable and able to answer questions appropriately Yesterday he told me he does not remember much from his hospital stay Today he denies any significant pain Also no chest pain or shortness of breath, breathing on room air EEG obtained this AM, neurology following Peace catheter in, Cr still elevated, nephrology following BP now elevated despite resuming home meds Resume pain medications cautiously Keppra level pending Left ring finger ulcer, wound care and Ortho contacted, will obtain CT as well Review of Systems Review of Systems: All systems reviewed & are unremarkable except as noted in Subjective Physical Exam Physical Exam: GENERAL: thin male in no respiratory distress HEENT: NC, EOMI, pupils equal and constricted, pale palpebral conjunctivae NECK : Supple, no tenderness CHEST : CTAB, no wheezing, crackles HEART : RRR, no obvious murmurs ABDOMEN: soft, non tender to palp., + bowel sounds : + Peace EXTREMITIES : No LE swelling/tenderness, moves extremities, left ring finger with ulcer/wound NEUROLOGIC : more awake than previously, able to answer questions appropriately, no facial asymmetry, moves extremities SKIN: pallor, warm Results & Data Results & Data ([facility]) Vital Signs (Past 12 Hours) Vital Signs Temp Pulse Pulse Pulse Resp BP Pulse Ox 12/26/20 08:12 103 H 177/99 H 12/26/20 08:00 88 12/26/20 07:55 36.9 C 86 16 154/74 H 97 12/26/20 05:01 37.3 C 87 16 177/85 H 97 12/25/20 23:49 83 Laboratory Results 12/26/20 12/26/20 12/26/20 Range/Units 07:36 07:36 06:04 WBC 6.08 (4.8-10.8) K/uL RBC 3.05 L (4.7-6.1) M/uL Hgb 8.9 L (14.0-18.0) g/dL Hct 26.4 L (42-52) % MCV 86.6 (80-100) fL MCH 29.2 (25-34) pg MCHC 33.7 (32-36) g/dL RDW Std Deviation 40.9 (36.4-46.3) fL RDW Coeff of Rik 12.9 (11.5-14.5) % Plt Count 305 (130-400) K/uL MPV 9.2 (7.4-10.4) fL Sodium 138 (136-145) mmol/L Potassium 3.9 (3.5-5.1) mmol/L Chloride 105 (98-107) mmol/L Carbon Dioxide 26 (21-32) mmol/L Anion Gap 8.0 (3-11) BUN 23 H (7-18) mg/dl Creatinine 2.66 H (0.6-1.4) mg/dl Est Cr Clr Drug Dosing 30.4 ml/min Est GFR ( Amer) 30.0 ml/min Est GFR (Non-Af Amer) 25.8 ml/min BUN/Creatinine Ratio 8.8 L (10-20) Glucose 257 H (70-99) mg/dl POC Glucose 296 H (70-99) mg/dl Calcium 8.1 L (8.5-10.1) mg/dl Phosphorus 3.1 D (2.5-4.9) mg/dl Magnesium 1.7 L (1.8-2.4) mg/dl 12/26/20 12/25/20 12/25/20 Range/Units 00:00 16:29 11:15 WBC (4.8-10.8) K/uL RBC (4.7-6.1) M/uL Hgb (14.0-18.0) g/dL Hct (42-52) % MCV (80-100) fL MCH (25-34) pg MCHC (32-36) g/dL RDW Std Deviation (36.4-46.3) fL RDW Coeff of Rik (11.5-14.5) % Plt Count (130-400) K/uL MPV (7.4-10.4) fL Sodium (136-145) mmol/L Potassium (3.5-5.1) mmol/L Chloride (98-107) mmol/L Carbon Dioxide (21-32) mmol/L Anion Gap (3-11) BUN (7-18) mg/dl Creatinine (0.6-1.4) mg/dl Est Cr Clr Drug Dosing ml/min Est GFR ( Amer) ml/min Est GFR (Non-Af Amer) ml/min BUN/Creatinine Ratio (10-20) Glucose (70-99) mg/dl POC Glucose 225 H 250 H 191 H (70-99) mg/dl Calcium (8.5-10.1) mg/dl Phosphorus (2.5-4.9) mg/dl Magnesium (1.8-2.4) mg/dl
--- NOTE | 2020-12-26 11:36 | Orthopedic Consultation ---
Date of Consultation December 26, 2020 Assessment & Plan (1) Finger infection: Left fourth finger infection. Wound reviewed with wound care team present. I have discussed the case with Drs. Kraft/Gurmeet at length. Continue current IV antibiotics. Plan for Aquacel Ag dressings to be changed daily. We will continue to follow the wound for now. Dr. Levi will see patient later this afternoon. Will await his input. If wound continues to improve, plan for outpatient treatment and follow-up with [facility] hand team. Supervising Physician Co-Signing Physician Notes Patient seen and examined. A agree with CHARLI Chandra's note as above. Patient is a very poorly controlled diabetic. His hemoglobin A1c has been 11 or higher for at least the past 2 years. It was 11.4 on December 20, slightly improved from 12.5 in November 2018. He has obvious severe diabetic peripheral neuropathy. He reports complete loss of sensation in all the digits in both hands. He has profound muscle atrophy in the intrinsic muscles in his hands, both ulnar and median nerve controlled muscle groups. Along with the loss of protective sensation, I suspect that his loss of ulnar nerve motor control of the intrinsic muscles is causing inability to abduct his fingers and likely contributing to this wound that he has on the radial aspect of the left ring finger. He says that these blisters will pop up between his fingers from time to time, but they usually heal on their own. His current wound on the radial side of the ring finger is about 4 to 5 cm in length and about a centimeter in width. It appears fairly superficial. No gross surrounding infection. No evidence of osteomyelitis or abscess on x-ray or CT scan. I think is can be treated with local wound care. I would recommend tight glucose control and optimizing nutrition (he has very poor nutrition with an albumin of 2.0) to improve wound healing. No indication for acute surgical intervention at this point. Continue with wound care. Follow-up in orthopedic surgery clinic 2 to 3 weeks after discharge. Please call [facility] at [phone] to make an appointment. History of Present Illness Reason for Consultation: Infection left fourth finger Attending Physician: Lorne Segal MD History of Present Illness Patient is a 55-year-old white male who was admitted several days ago with shortness of breath and nausea and vomiting. Past medical history significant for COPD, NSCLC stage III, status post surgery, incomplete chemotherapy secondary to intolerance, IBD, gastroparesis status post gastric pacemaker, chronic pain on narcotics, HTN, DM1, DM neuropathy, past tobacco abuse, CRI (baseline creatinine 2), chronic anemia (baseline hemoglobin 9), seizure disorder as per records, hx neurogenic bladder as per records. I was contacted earlier this morning by Dr. Segal after recently finding some wounds on his left fourth finger. A plain film was taken of the left hand which showed no signs of osteomyelitis. Patient is currently sitting up in his chair awake and alert. He states that he gets blisters on his hands and feet at times. He states that about a week ago or possibly longer he had developed a blister that was fairly large on his fourth finger that ran from the webspace out to the PIP joint. He states that they normally break and have a clear serous fluid to it. This one was different. He states that the fluid that came out of the blister when it broke was a more thickened serous fluid than before. With multiple issues, they were watching the finger over the last several days. However, recently it was noted that he had what appeared to be the beginnings of possible ulceration of the skin along the medial aspect of the fourth finger. The patient was less obtunded and was able to give better history. Currently he does not complain of pain at this time. He has a history of neuropathy in the hands from his diabetes and also contractures as well. He has been afebrile during this visit. Denies fever or chills. We have been asked to take a look at his left fourth finger. Allergies Allergy/AdvReac Type Severity Reaction Status Date / Time bee venom protein (honey bee) Allergy Mild SWELLING Verified 12/20/20 07:02 AT SITE, SOB Penicillins Allergy Unknown "SINCE Verified 12/20/20 07:02 "-Amoxicillin cat dander Allergy Unknown Verified 12/20/20 07:02 Home Medications Medication Instructions Recorded Confirmed Type albuterol sulfate 90 mcg/actuation 2 puff INHALATION Q4H PRN 05/05/18 12/20/20 History aerosol inhaler epinephrine 0.3 mg/0.3 mL 0.3 mg IM Q3H PRN 05/05/18 12/20/20 History injection, auto-injector (EpiPen) gabapentin 300 mg capsule 300 mg PO TID 05/05/18 12/20/20 History insulin glargine 100 unit/mL (3 7 unit SUBCUT HS 05/05/18 12/20/20 History mL) subcutaneous pen (Basaglar KwikPen U-100 Insulin) insulin lispro 100 unit/mL 1 sliding scale dose SUBCUT UD 05/05/18 12/20/20 History subcutaneous cartridge (Humalog U-100 Insulin) multivitamin 1 tab PO QAM 05/05/18 12/20/20 History oxycodone 10 mg tablet 10 mg PO Q4H PRN 05/05/18 12/20/20 History pantoprazole 40 mg tablet,delayed 40 mg PO QAM 05/05/18 12/20/20 History release clonidine 0.2 mg/24 hr weekly 1 patch TRANSDERMAL WK 01/23/20 12/20/20 History transdermal patch escitalopram oxalate 10 mg tablet 10 mg PO DAILY 01/24/20 12/20/20 History (Lexapro) fluticasone 250 mcg-salmeterol 50 1 inh INHALATION BID 01/24/20 12/20/20 History mcg/dose blistr powdr for inhalation (Wixela Inhub) amlodipine 5 mg tablet (Norvasc) 5 mg PO QAM #30 tab 01/29/20 12/20/20 Rx levetiracetam 750 mg tablet 750 mg PO BID 30 Days #60 tab 01/29/20 12/20/20 Rx (Keppra) MorphaBond ER 60 mg PO BID 12/20/20 12/20/20 History cyclobenzaprine 5 mg tablet 5 mg PO TID PRN 12/20/20 12/20/20 History ondansetron 8 mg disintegrating 8 mg PO Q8H PRN 12/20/20 12/20/20 History tablet Patient History Medical History (Updated 12/26/20 @ 11:58 by Alban Chandra PA-C) Acute dyspnea Acute hyponatremia IVAN (acute kidney injury) Anemia Chest pain No current chest pain...related to reflux per patient Chronic pain COPD (chronic obstructive pulmonary disease) Diabetes mellitus type 2, uncontrolled Diabetic autonomic neuropathy Diabetic peripheral neuropathy Discharge planning issues DVT prophylaxis Gastroparesis "s/p gastric stimulator" Hypertension Hypomagnesemia Intractable nausea and vomiting 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 One 1 mm polyp in the ascending colon resected. One benign appearing 1 mm polyp in the rectum resected. Internal hemorrhoids; Dr. Demarco" H/O esophagogastroduodenoscopy "01/26/2015- [place] Grade B reflux esophagitis, gastritis; Dr. Major" History of cholecystectomy History of tonsillectomy and adenoidectomy Hx of total knee arthroplasty S/P lobectomy of lung "left upper lobectomy for adenoCa" On 08/05/16 16:30 Edie Mcfarland wrote "L side @ [facility] 05/25/16" Status post insertion of intrathecal pump explanted Family History Other Family history non-contributory Social History Smoking Status: Former smoker Second Hand Exposure: No; Do You Dip or Chew Tobacco: No; Tobacco Cessation Education Requested by Patient: No Hx Alcohol Use: Yes Alcohol type: beer Hx Substance Use: Yes Last Used Substance: Just Prior to Arrival Last Used Substance Other:: Four hours ago Substance Use Type Other:: fentanyl patch 24hrs a day-refused removal of 2 patches Preferred Language: Sinhala Communication Ability: Effective Graduate Assistant Athletic Trainer Required: No Beliefs That Will Affect Care: [employer] Beliefs: Catholic marital status: Single Current Living Situation: Alone Other Information That Helps Us Care for You: No Feels Safe at Home: Yes Safety Concerns: Afraid for Self Assistive Devices: Brace/Splint/Immobilizer and Oxygen - Continuous Review of Systems Review of Systems: All systems reviewed & are unremarkable except as noted in HPI & below Physical Exam Physical Exam: On examination of his left fourth finger, you can see the area that the blister encased on the medial aspect that went from the DIP joint all the way back almost to the webspace between the third and fourth fingers he has an area of slight erythema around the edges of this blistered area. There is no loose skin noted. He has some slight maceration noted of the volar aspect edges secondary to current dressing. He has 2 central portions of yellow discoloration with a darkened center. One is at the medial middle phalanx area and the second is more proximal near to the webspace. There is no foul odor. There is no purulent drainage. Patient has limited range of motion secondary to contracture. I cannot express any purulence from these areas. Capillary refill is less than 2 seconds. Patient has noted neuropathy and decreased sensation. Decreased range of motion secondary to contracture. Results & Data ([facility]) Vital Signs (Past 12 Hours) Vital Signs Temp Pulse Pulse Pulse Resp BP Pulse Ox 12/26/20 08:12 103 H 177/99 H 12/26/20 08:00 88 12/26/20 07:55 36.9 C 86 16 154/74 H 97 12/26/20 05:01 37.3 C 87 16 177/85 H 97 12/25/20 23:49 83 Diagnostic Findings Patient: INKHIL MARTINS Date: 12/21/20MR#: [id number]: [address]Acct ID:[id number]: Date: 1965[facility] Zip: [place], [place] [address]Jai: 55Location: 2SSex: MRoom/Bed: A778-9Ons Phy: Vince Segal, MDDiagnosis: SOBPri Phy: Lionel Lutz V., DOService Date: 12/24/20Fa Phy:Interpreting [facility] Phy: Darian Chinchilla MD Ordering Phy: Lorne Segal MD cc: ~ XR hand LT min 3V routine CLINICAL HISTORY: finger ulcer , r/o osteo COMPARISON: None FINDINGS: A bandage on the fourth finger is noted. There is no acute fracture. There is no radiographic evidence of osteomyelitis. Vascular calcification is incidentally noted. No radiopaque foreign bodies are identified. IMPRESSION: No acute fracture. No radiographic evidence of acute osteomyelitis.
[2020-12-26] MEDS: MAGNESIUM SULFATE / D5W 1 GM/100 ML BAG IV SCH ×2 (11:44→13:34)
[2020-12-26] MEDS: CLINDAMYCIN 600 MG in DEXTROSE 5% 50 ML IV SCH ×2 (12:11→20:05)
[2020-12-26] MEDS: LABETALOL HCL IV 5 MG/ML 20ML IV PRN (12:22)
--- NOTE | 2020-12-26 13:26 | Pharmacy Report ---
Pharmacy Glycemic Short Note 2 - Date of Service December 26, 2020 - Glycemic Short BSG Results (Last 24 hours): 12/25/20 12/26/20 12/26/20 16:29 00:00 06:04 Glucose POC Glucose 250 H 225 H 296 H 12/26/20 12/26/20 07:36 11:19 Glucose 257 H POC Glucose 242 H OUTPATIENT ANTIDIABETIC REGIMEN: * Basaglar 7 units HS, Humalog SSI * A1c 11.4% ASSESSMENT: 12/26 * BSGs trended up yesterday, 136, 191, 250, and 225 mg/dL * Will continue on with scheduled regular insulin, but will adjust scale to provide increased dose if necessary * Scheduled regular insulin still seems to be a better option that basal/bolus in this patient at this time 12/24 * Patient's BSGs yesterday were 85-276-60-130 mg/dL. Fasting today was 127 mg/dL. * Due to repeated lows yesterday decision was made to transition to Regular insulin SQ q6 dosing based upon BSG. * Based upon previous hospitalization this provided more stable BSGs. 12/23 * Patient received total of 12 units of insulin yesterday, of which 10 units were basal insulin * BSGs lower overnight, started on D5 infusion. Fasting BSG still in the 40s. Of note, patient with no PO intake yesterday. Basal insulin had been decreased from day prior * Plan to resume home basaglar dose of 7 units tonight. PO intake improving more with lunch time today 12/21 * Patient admitted with shortness of breath, abdominal pain, N/V. Hx of gastroparesis s/sp gastric pacemaker. Type 1 DM at home with elevated A1c on admission. * Pharmacy consulted for glycemic management. Received total of 35 units of insulin yesterday, of which 10 units were basal insulin. Patient known to glycemic service from prior admissions. BSGs tend to be very labile, especially with having N/V * Fasting BSG 214 mg/dL - plan to titrate basal insulin slightly more today / increase 20% * Continue same CF/CR for now, BSGs trending down quickly yesterday 210-196-74 mg/dL PLAN FOR INPATIENT GLYCEMIC CONTROL: * Hold outpatient oral diabetes medications * Bolus insulin * Regular insulin Q6hrs * If BSG less than 110: hold * If BSG 110-140 mg/dl: 1 unit * If BSG 141-180 mg/dL: 2 units * If BSG 181-210 mg/dL: 3 units * If BSG greater than 210 mg/dL: 4 units PLAN FOR DISCHARGE: * TBD
--- NOTE | 2020-12-26 14:11 | CT Scan Report ---
LEFT HAND CT CT DOSE: 435.74 mGy.cm HISTORY: Left fourth finger swelling. r/o osteo of Left ring finger TECHNIQUE: Multiaxial CT images of the left hand were performed and reformatted in the sagittal and c oronal plane without the use of contrast. A dose lowering technique was utilized adhering to the thao Ibanez. COMPARISON: Left hand radiograph 12/24/2020. FINDINGS: There is mild soft tissue swelling within the second through fourth fingers. No fracture or dislocation. No opaque foreign bodies. No underlying bony destruction to suggest an osteomyelitis. N o loculated fluid collections to suggest an abscess. Mild vascular calcifications are noted. IMPRESSION: No fractures or osteomyelitis identified within the left hand. ACT 112: Negative or not required by law. Electronically signed by: Danilo Langley M.D. 12/26/2020 2:09 PM
--- NOTE | 2020-12-26 15:42 | Electroencephalogram ---
EEG Procedure Note Date of Service December 26, 2020 Start / End Times Start Time: 100 End Time: 120 Referring Physician Nidia Yeboah MD History Change in mental status Home Medication List Medication Instructions Recorded Confirmed Type albuterol sulfate 90 mcg/actuation 2 puff INHALATION Q4H PRN 05/05/18 12/20/20 History aerosol inhaler epinephrine 0.3 mg/0.3 mL 0.3 mg IM Q3H PRN 05/05/18 12/20/20 History injection, auto-injector (EpiPen) gabapentin 300 mg capsule 300 mg PO TID 05/05/18 12/20/20 History insulin glargine 100 unit/mL (3 7 unit SUBCUT HS 05/05/18 12/20/20 History mL) subcutaneous pen (Basaglar KwikPen U-100 Insulin) insulin lispro 100 unit/mL 1 sliding scale dose SUBCUT UD 05/05/18 12/20/20 History subcutaneous cartridge (Humalog U-100 Insulin) multivitamin 1 tab PO QAM 05/05/18 12/20/20 History oxycodone 10 mg tablet 10 mg PO Q4H PRN 05/05/18 12/20/20 History pantoprazole 40 mg tablet,delayed 40 mg PO QAM 05/05/18 12/20/20 History release clonidine 0.2 mg/24 hr weekly 1 patch TRANSDERMAL WK 01/23/20 12/20/20 History transdermal patch escitalopram oxalate 10 mg tablet 10 mg PO DAILY 01/24/20 12/20/20 History (Lexapro) fluticasone 250 mcg-salmeterol 50 1 inh INHALATION BID 01/24/20 12/20/20 History mcg/dose blistr powdr for inhalation (Wixela Inhub) amlodipine 5 mg tablet (Norvasc) 5 mg PO QAM #30 tab 01/29/20 12/20/20 Rx levetiracetam 750 mg tablet 750 mg PO BID 30 Days #60 tab 01/29/20 12/20/20 Rx (Keppra) MorphaBond ER 60 mg PO BID 12/20/20 12/20/20 History cyclobenzaprine 5 mg tablet 5 mg PO TID PRN 12/20/20 12/20/20 History ondansetron 8 mg disintegrating 8 mg PO Q8H PRN 12/20/20 12/20/20 History tablet Inpatient Medication List Amlodipine Besylate (Amlodipine Besylate 5 Mg Tab) 5 mg PO QAM [facility] Stop: 01/20/21 08:59 Last Admin: 12/26/20 09:21 Dose: 5 mg Documented by: [id number] Admin: 12/25/20 09:38 Dose: 5 mg Documented by: [id number] Admin: 12/22/20 08:15 Dose: Not Given Documented by: [id number] Admin: 12/21/20 08:09 Dose: 5 mg Documented by: [id number] Clonidine HCl (Clonidine Hcl 0.2 Mg/24 Hr Transderm Sys) 1 patch TD Q7D@0900 [facility] Stop: 01/24/21 14:59 Last Admin: 12/25/20 15:51 Dose: 1 patch Documented by: [id number] Cyanocobalamin (Cyanocobalamin 500 Mcg Tablet (Vitamin B-12)) 1,000 mcg PO QAM [facility] Stop: 01/24/21 10:14 Last Admin: 12/26/20 08:14 Dose: 1,000 mcg Documented by: [id number] Admin: 12/25/20 11:19 Dose: 1,000 mcg Documented by: [id number] Dextrose (Dextrose 50% 50 Ml Syringe) 25 - 50 ml IV UD PRN; Protocol PRN Reason: Hypoglycemia Protocol Stop: 01/19/21 13:40 Last Admin: 12/23/20 07:19 Dose: 50 ml Documented by: [id number] Admin: 12/23/20 03:30 Dose: 50 ml Documented by: [id number] Admin: 12/21/20 16:40 Dose: 50 ml Documented by: [id number] Escitalopram Oxalate (Escitalopram Oxalate 10 Mg Tab) 5 mg PO DAILY [facility]IR Stop: 01/24/21 10:14 Last Admin: 12/26/20 08:14 Dose: 5 mg Documented by: [id number] Admin: 12/25/20 11:19 Dose: 5 mg Documented by: [id number] Fluticasone/Vilanterol (Fluticasone/Vilanterol 100/25mcg 14 Puffs/Inhaler) 1 puffs INH DAILY [facility] Stop: 01/19/21 08:59 Last Admin: 12/26/20 08:17 Dose: 1 puffs Documented by: [id number] Admin: 12/25/20 09:34 Dose: 1 puffs Documented by: [id number] Admin: 12/24/20 08:47 Dose: 1 puffs Documented by: [id number] Admin: 12/23/20 08:28 Dose: 1 puffs Documented by: [id number] Admin: 12/22/20 08:13 Dose: 1 puffs Documented by: [id number] Admin: 12/21/20 08:07 Dose: 1 puffs Documented by: [id number] Admin: 12/20/20 10:32 Dose: 1 puffs Documented by: [id number] Gabapentin (Gabapentin 300 Mg Cap) 300 mg PO TID [facility]IR Stop: 01/19/21 09:16 Last Admin: 12/22/20 08:13 Dose: 300 mg Documented by: [id number] Admin: 12/21/20 21:24 Dose: 300 mg Documented by: [id number] Admin: 12/21/20 13:31 Dose: 300 mg Documented by: [id number] Admin: 12/21/20 08:08 Dose: 300 mg Documented by: [id number] Admin: 12/20/20 20:52 Dose: 300 mg Documented by: [id number] Admin: 12/20/20 14:31 Dose: 300 mg Documented by: [id number] Admin: 12/20/20 10:13 Dose: 300 mg Documented by: [id number] Gabapentin (Gabapentin 100 Mg Cap) 100 mg PO TID [facility] Stop: 01/22/21 20:59 Last Admin: 12/26/20 13:35 Dose: 100 mg Documented by: [id number] Admin: 12/26/20 08:16 Dose: 100 mg Documented by: [id number] Admin: 12/25/20 20:51 Dose: 100 mg Documented by: [id number] Admin: 12/25/20 15:57 Dose: 100 mg Documented by: [id number] Admin: 12/25/20 09:35 Dose: 100 mg Documented by: [id number] Admin: 12/24/20 22:45 Dose: Not Given Documented by: [id number] Admin: 12/24/20 14:28 Dose: 100 mg Documented by: [id number] Admin: 12/24/20 08:48 Dose: 100 mg Documented by: [id number] Admin: 12/23/20 21:07 Dose: 100 mg Documented by: [id number] Heparin Sodium (Porcine) (Heparin Sod 5,000 Unit/0.5 Ml Vial) 5,000 units SQ Q12 [facility] Stop: 01/19/21 20:59 Last Admin: 12/26/20 08:15 Dose: 5,000 units Documented by: [id number] Admin: 12/25/20 20:50 Dose: 5,000 units Documented by: [id number] Admin: 12/25/20 09:34 Dose: 5,000 units Documented by: [id number] Admin: 12/24/20 19:55 Dose: 5,000 units Documented by: [id number] Admin: 12/24/20 08:49 Dose: 5,000 units Documented by: [id number] Admin: 12/23/20 21:08 Dose: 5,000 units Documented by: [id number] Admin: 12/23/20 08:29 Dose: 5,000 units Documented by: [id number] Admin: 12/22/20 22:02 Dose: 5,000 units Documented by: [id number] Admin: 12/22/20 08:13 Dose: 5,000 units Documented by: [id number] Admin: 12/21/20 21:25 Dose: 5,000 units Documented by: [id number] Admin: 12/21/20 08:08 Dose: 5,000 units Documented by: [id number] Admin: 12/20/20 20:52 Dose: 5,000 units Documented by: [id number] Promethazine HCl 12.5 mg/ (Sodium Chloride) 50.5 mls @ 202 mls/hr IV Q6H PRN PRN Reason: Nausea And Vomiting Stop: 01/19/21 09:16 Last Infusion: 12/21/20 08:07 Dose: 0 mls/hr Documented by: [id number] Admin: 12/21/20 07:16 Dose: 202 mls/hr Documented by: [id number] Infusion: 12/20/20 18:59 Dose: 0 mls/hr Documented by: [id number] Admin: 12/20/20 18:36 Dose: 202 mls/hr Documented by: [id number] Naloxone HCl 5 mg/ Sodium (Chloride) 112.5 mls @ 8.325 mls/hr IV .[id number] [facility]; Protocol Stop: 01/22/21 01:59 Last Admin: 12/23/20 04:53 Dose: Not Given Documented by: [id number] Thiamine HCl 100 mg/ Syringe 10 mls @ 2 mls/min IV QAM [facility] Stop: 01/24/21 10:14 Last Admin: 12/26/20 08:16 Dose: 2 mls/min Documented by: [id number] Admin: 12/25/20 11:19 Dose: 2 mls/min Documented by: [id number] Clindamycin Phosphate 600 mg/ (Dextrose) 54 mls @ 100 mls/hr IV Q8H [facility] Stop: 01/02/21 11:59 Last Infusion: 12/26/20 12:50 Dose: 0 mls/hr Documented by: [id number] Admin: 12/26/20 12:11 Dose: 100 mls/hr Documented by: [id number] Insulin Human Regular (Insulin Human Regular) 0 units SC Q6 [facility]; Protocol Stop: 01/23/21 00:00 Last Admin: 12/26/20 12:20 Dose: 4 units Documented by: [id number] Cosigned by: [id number] Admin: 12/26/20 06:08 Dose: 3 units Documented by: [id number] Cosigned by: [id number] Admin: 12/26/20 00:18 Dose: 3 units Documented by: [id number] Cosigned by: [id number] Admin: 12/25/20 17:07 Dose: 3 units Documented by: [id number] Cosigned by: [id number] Admin: 12/25/20 11:40 Dose: 2 units Documented by: [id number] Cosigned by: [id number] Admin: 12/25/20 06:03 Dose: 1 units Documented by: [id number] Cosigned by: [id number] Admin: 12/25/20 00:04 Dose: 2 units Documented by: [id number] Cosigned by: [id number] Admin: 12/24/20 17:35 Dose: Not Given Documented by: [id number] Cosigned by: [id number] Admin: 12/24/20 13:06 Dose: 2 units Documented by: [id number] Cosigned by: [id number] Admin: 12/24/20 06:24 Dose: Not Given Documented by: [id number] Admin: 12/23/20 23:49 Dose: 1 units Documented by: [id number] Cosigned by: [id number] Labetalol HCl (Labetalol Hcl Iv 5 Mg/Ml 20ml) 10 mg IV Q4H PRN PRN Reason: Hypertension Stop: 01/23/21 19:31 Last Admin: 12/26/20 12:22 Dose: 10 mg Documented by: [id number] Cosigned by: [id number] Admin: 12/25/20 23:56 Dose: 10 mg Documented by: [id number] Cosigned by: [id number] Admin: 12/25/20 06:21 Dose: 10 mg Documented by: [id number] Cosigned by: [id number] Admin: 12/25/20 00:05 Dose: 10 mg Documented by: [id number] Cosigned by: [id number] Admin: 12/24/20 19:55 Dose: 10 mg Documented by: [id number] Cosigned by: [id number] Lactobacillus Acidoph/Casei/Rhamnos (Advanced Probiotic 1250 Mg Capsule) 2 cap PO DAILY DAMIR Stop: 01/22/21 17:29 Last Admin: 12/26/20 08:15 Dose: 2 cap Documented by: [id number] Admin: 12/25/20 09:35 Dose: 2 cap Documented by: [id number] Admin: 12/24/20 08:48 Dose: 2 cap Documented by: [id number] Admin: 12/23/20 18:06 Dose: 2 cap Documented by: [id number] Levetiracetam (Levetiracetam Soln 250 Mg/2.5 Ml Udp) 250 mg PO Q12 [facility] Stop: 01/24/21 20:59 Last Admin: 12/26/20 08:16 Dose: 250 mg Documented by: [id number] Admin: 12/25/20 20:50 Dose: 250 mg Documented by: [id number] Magnesium Oxide (Magnesium Oxide 400 Mg Tab) 400 mg PO BID [facility]IR Stop: 01/24/21 09:14 Last Admin: 12/26/20 08:14 Dose: 400 mg Documented by: [id number] Admin: 12/25/20 20:52 Dose: 400 mg Documented by: [id number] Admin: 12/25/20 09:46 Dose: 400 mg Documented by: [id number] Miscellaneous (Check Clonidine Patch Placement) 1 ea N/A QS [facility] Stop: 01/24/21 15:59 Last Admin: 12/26/20 08:13 Dose: 1 ea Documented by: [id number] Admin: 12/26/20 00:26 Dose: 1 ea Documented by: [id number] Admin: 12/25/20 15:54 Dose: 1 ea Documented by: [id number] Morphine Sulfate (Morphine Sulfate Cr 60 Mg Tabcr) 60 mg PO BID [facility] Stop: 01/03/21 09:29 Last Admin: 12/22/20 08:23 Dose: Not Given Documented by: [id number] Admin: 12/21/20 21:36 Dose: Not Given Documented by: [id number] Admin: 12/21/20 08:10 Dose: 60 mg Documented by: [id number] Admin: 12/20/20 20:52 Dose: 60 mg Documented by: [id number] Admin: 12/20/20 10:31 Dose: 60 mg Documented by: [id number] Multivitamins (Multivitamin Tab) 1 tab PO QAM [facility]IR Stop: 01/19/21 09:16 Last Admin: 12/26/20 08:15 Dose: 1 tab Documented by: [id number] Admin: 12/25/20 09:35 Dose: 1 tab Documented by: [id number] Admin: 12/24/20 08:47 Dose: 1 tab Documented by: [id number] Admin: 12/23/20 08:29 Dose: 1 tab Documented by: [id number] Admin: 12/22/20 08:13 Dose: 1 tab Documented by: [id number] Admin: 12/21/20 08:09 Dose: 1 tab Documented by: [id number] Admin: 12/20/20 10:14 Dose: 1 tab Documented by: [id number] Oxycodone HCl (Oxycodone Hcl Ir 5 Mg Tab (Immediate Release)) 5 mg PO Q4H PRN PRN Reason: Pain Stop: 01/08/21 11:14 Last Admin: 12/26/20 04:52 Dose: 5 mg Documented by: [id number] Admin: 12/25/20 11:40 Dose: 5 mg Documented by: [id number] Pantoprazole Sodium (Pantoprazole 40 Mg Tab) 40 mg PO QAM DAMIR Stop: 01/19/21 09:16 Last Admin: 12/26/20 08:15 Dose: 40 mg Documented by: [id number] Admin: 12/25/20 09:35 Dose: 40 mg Documented by: [id number] Admin: 12/24/20 08:48 Dose: 40 mg Documented by: [id number] Admin: 12/23/20 08:29 Dose: 40 mg Documented by: [id number] Admin: 12/22/20 08:13 Dose: 40 mg Documented by: [id number] Admin: 12/21/20 08:09 Dose: 40 mg Documented by: [id number] Admin: 12/20/20 10:14 Dose: 40 mg Documented by: [id number] Discontinued Medications Amlodipine Besylate (Amlodipine Besylate 5 Mg Tab) 10 mg PO NOW ONE Stop: 12/20/20 04:54 Last Admin: 12/20/20 05:01 Dose: 10 mg Documented by: [id number] Clonidine HCl (Clonidine Hcl 0.2 Mg/24 Hr Transderm Sys) 1 patch TD Q7D@0600 DAM[facility] Stop: 01/19/21 05:59 Last Admin: 12/20/20 06:04 Dose: 1 patch Documented by: [id number] Dexamethasone Sodium Phosphate (DexamethasonePf 10 Mg/Ml Vial) 10 mg IV NOW ONE Stop: 12/20/20 00:15 Last Admin: 12/20/20 03:38 Dose: 10 mg Documented by: [id number] Furosemide (Furosemide 20 Mg Tab) 20 mg PO ONE ONE Stop: 12/24/20 18:01 Last Admin: 12/24/20 18:32 Dose: 20 mg Documented by: [id number] Gabapentin (Gabapentin 100 Mg Cap) 100 mg PO NOW STA Stop: 12/24/20 14:47 Last Admin: 12/24/20 14:55 Dose: 100 mg Documented by: [id number] Gabapentin (Gabapentin 100 Mg Cap) 100 mg PO NOW STA Stop: 12/25/20 11:17 Last Admin: 12/25/20 11:40 Dose: 100 mg Documented by: [id number] Heparin Sodium/Dextrose (Heparin Iv Adult Wt-Based Low-Dose *No* Bolus Protocol) 1 ea N/A ONE ONE; Protocol Stop: 12/20/20 07:21 Last Admin: 12/20/20 07:39 Dose: Not Given Documented by: [id number] Hydralazine HCl (Hydralazine Hcl 20 Mg/Ml Vial) 10 mg IV NOW STA Stop: 12/20/20 05:32 Last Admin: 12/20/20 05:37 Dose: 10 mg Documented by: [id number] Hydralazine HCl (Hydralazine Hcl 25 Mg Tab) 25 mg PO NOW STA Stop: 12/24/20 17:25 Last Admin: 12/24/20 17:42 Dose: 25 mg Documented by: [id number] Hydralazine HCl (Hydralazine Hcl 20 Mg/Ml Vial) 7.5 mg IV NOW STA Stop: 12/25/20 03:56 Last Admin: 12/25/20 04:16 Dose: 7.5 mg Documented by: [id number] Hydromorphone HCl (Hydromorphone Inj 1 Mg/Ml Syringe) 1 mg IV NOW STA Stop: 12/20/20 05:26 Last Admin: 12/20/20 05:34 Dose: Not Given Documented by: [id number] Sodium Chloride (Nss 1000ml) 1,000 mls @ 999 mls/hr IV .Q1H1M [facility] Stop: 12/20/20 01:15 Last Infusion: 12/20/20 04:43 Dose: 0 mls/hr Documented by: [id number] Admin: 12/20/20 03:40 Dose: 999 mls/hr Documented by: [id number] Acetaminophen (Ofirmev) 1,000 mg in 100 mls @ 400 mls/hr IV NOW STA Stop: 12/20/20 00:28 Last Infusion: 12/20/20 03:54 Dose: 0 mls/hr Documented by: [id number] Admin: 12/20/20 03:39 Dose: 400 mls/hr Documented by: [id number] Heparin Sodium/Dextrose (Heparin Sodium/Dextrose) 25,000 units in 500 mls @ 17 mls/hr IV .Q24H DAMIR; Protocol Stop: 01/19/21 07:29 Last Titration: 12/20/20 11:15 Dose: 0 units/hr, 0 mls/hr Documented by: [id number] Cosigned by: [id number] Admin: 12/20/20 07:36 Dose: 17 units/hr, 0.3 mls/hr Documented by: [id number] Cosigned by: [id number] Magnesium Sulfate/Dextrose (Magnesium Sulfate / D5w) 1 gm in 100 mls @ 50 mls/hr IV Q2H [facility] Stop: 12/20/20 13:48 Last Infusion: 12/20/20 17:49 Dose: 0 mls/hr Documented by: [id number] Admin: 12/20/20 15:13 Dose: 50 mls/hr Documented by: [id number] Infusion: 12/20/20 15:13 Dose: 50 mls/hr Documented by: [id number] Admin: 12/20/20 14:00 Dose: 50 mls/hr Documented by: [id number] Infusion: 12/20/20 13:15 Dose: 50 mls/hr Documented by: [id number] Admin: 12/20/20 11:15 Dose: 50 mls/hr Documented by: [id number] Sodium Chloride (Nss 1000ml) 1,000 mls @ 60 mls/hr IV .[id number] ONE Stop: 12/21/20 00:30 Last Infusion: 12/21/20 02:50 Dose: 0 mls/hr Documented by: [id number] Admin: 12/20/20 10:07 Dose: 60 mls/hr Documented by: [id number] Sodium Chloride (Nss 1000ml) 500 mls @ 999 mls/hr IV .Q31M ONE Stop: 12/21/20 16:04 Last Infusion: 12/21/20 16:53 Dose: 0 mls/hr Documented by: [id number] Admin: 12/21/20 16:05 Dose: 999 mls/hr Documented by: [id number] Sodium Chloride (Nss 1000ml) 1,000 mls @ 80 mls/hr IV .[id number] [facility] Stop: 01/20/21 19:59 Last Infusion: 12/23/20 12:44 Dose: 0 mls/hr Documented by: [id number] Admin: 12/22/20 22:04 Dose: 80 mls/hr Documented by: [id number] Infusion: 12/22/20 22:04 Dose: 80 mls/hr Documented by: [id number] Admin: 12/22/20 08:12 Dose: 80 mls/hr Documented by: [id number] Infusion: 12/22/20 08:12 Dose: 80 mls/hr Documented by: [id number] Admin: 12/21/20 21:23 Dose: 80 mls/hr Documented by: [id number] Albumin Human (Albumin 25%) 12.5 gm in 50 mls @ 50 mls/hr IV Q1H [facility] Stop: 12/22/20 15:59 Last Infusion: 12/22/20 16:47 Dose: 0 mls/hr Documented by: [id number] Admin: 12/22/20 15:33 Dose: 50 mls/hr Documented by: [id number] Infusion: 12/22/20 15:33 Dose: 50 mls/hr Documented by: [id number] Admin: 12/22/20 14:48 Dose: 50 mls/hr Documented by: [id number] Albumin Human (Albumin 25%) 12.5 gm in 50 mls @ 50 mls/hr IV Q1H [facility] Stop: 12/22/20 20:29 Last Infusion: 12/22/20 23:11 Dose: 50 mls/hr Documented by: [id number] Admin: 12/22/20 19:23 Dose: 50 mls/hr Documented by: [id number] Infusion: 12/22/20 19:23 Dose: 50 mls/hr Documented by: [id number] Admin: 12/22/20 18:35 Dose: 50 mls/hr Documented by: [id number] Calcium Gluconate 1,000 mg/ (Sodium Chloride) 60 mls @ 240 mls/hr IV NOW ONE Stop: 12/22/20 18:36 Last Infusion: 12/22/20 23:12 Dose: 240 mls/hr Documented by: [id number] Admin: 12/22/20 19:22 Dose: 240 mls/hr Documented by: [id number] Naloxone HCl 5 mg/ Sodium (Chloride) 112.5 mls @ 100 mls/hr IV .Q1H8M [facility] Stop: 12/22/20 23:00 Last Admin: 12/23/20 02:22 Dose: Not Given Documented by: [id number] Naloxone HCl 1 mg/ Sodium (Chloride) 1,002.5 mls @ 50 mls/hr IV .Q20H3M [facility] Stop: 01/21/21 21:44 Last Admin: 12/23/20 19:51 Dose: Not Given Documented by: [id number] Levetiracetam 500 mg/ Sodium (Chloride) 105 mls @ 420 mls/hr IV Q12H [facility] Stop: 01/22/21 02:59 Last Infusion: 12/25/20 03:35 Dose: 0 mls/hr Documented by: [id number] Admin: 12/25/20 03:07 Dose: 420 mls/hr Documented by: [id number] Infusion: 12/24/20 18:03 Dose: 0 mls/hr Documented by: [id number] Admin: 12/24/20 17:36 Dose: 420 mls/hr Documented by: [id number] Infusion: 12/24/20 03:56 Dose: 0 mls/hr Documented by: [id number] Admin: 12/24/20 03:38 Dose: 420 mls/hr Documented by: [id number] Infusion: 12/23/20 15:08 Dose: 0 mls/hr Documented by: [id number] Admin: 12/23/20 14:43 Dose: 420 mls/hr Documented by: [id number] Infusion: 12/23/20 04:54 Dose: 0 mls/hr Documented by: [id number] Admin: 12/23/20 03:50 Dose: 420 mls/hr Documented by: [id number] Dextrose/Sodium Chloride (D5w And Nss) 1,000 mls @ 80 mls/hr IV .[id number] [facility] Stop: 01/22/21 03:44 Last Infusion: 12/24/20 13:59 Dose: 0 mls/hr Documented by: [id number] Admin: 12/24/20 03:38 Dose: 80 mls/hr Documented by: [id number] Infusion: 12/24/20 03:13 Dose: 80 mls/hr Documented by: [id number] Admin: 12/23/20 14:43 Dose: 80 mls/hr Documented by: [id number] Infusion: 12/23/20 14:43 Dose: 80 mls/hr Documented by: [id number] Admin: 12/23/20 03:51 Dose: 80 mls/hr Documented by: [id number] Clindamycin Phosphate 600 mg/ (Dextrose) 54 mls @ 100 mls/hr IV Q8H [facility] Stop: 12/25/20 13:59 Last Infusion: 12/25/20 11:19 Dose: 0 mls/hr Documented by: [id number] Admin: 12/25/20 09:45 Dose: 100 mls/hr Documented by: [id number] Infusion: 12/25/20 03:07 Dose: 0 mls/hr Documented by: [id number] Admin: 12/25/20 02:22 Dose: 100 mls/hr Documented by: [id number] Infusion: 12/24/20 18:32 Dose: 0 mls/hr Documented by: [id number] Admin: 12/24/20 18:01 Dose: 100 mls/hr Documented by: [id number] Infusion: 12/24/20 07:36 Dose: 0 mls/hr Documented by: [id number] Admin: 12/24/20 06:21 Dose: 100 mls/hr Documented by: [id number] Infusion: 12/23/20 21:50 Dose: 0 mls/hr Documented by: [id number] Admin: 12/23/20 21:13 Dose: 100 mls/hr Documented by: [id number] Infusion: 12/23/20 16:20 Dose: 0 mls/hr Documented by: [id number] Admin: 12/23/20 15:23 Dose: 100 mls/hr Documented by: [id number] Magnesium Sulfate/Dextrose (Magnesium Sulfate / D5w) 1 gm in 100 mls @ 50 mls/hr IV ONE ONE Stop: 12/24/20 11:59 Last Infusion: 12/24/20 12:55 Dose: 0 mls/hr Documented by: [id number] Admin: 12/24/20 10:45 Dose: 50 mls/hr Documented by: [id number] Daptomycin 400 mg/ Syringe 8 mls @ 4 mls/min IV Q24H [facility]; Protocol Stop: 02/04/21 15:59 Last Admin: 12/25/20 15:50 Dose: 4 mls/min Documented by: [id number] Admin: 12/24/20 17:36 Dose: 4 mls/min Documented by: [id number] Magnesium Sulfate/Dextrose (Magnesium Sulfate / D5w) 1 gm in 100 mls @ 50 mls/hr IV Q2H [facility] Stop: 12/25/20 13:29 Last Infusion: 12/25/20 14:27 Dose: 0 mls/hr Documented by: [id number] Admin: 12/25/20 11:50 Dose: 50 mls/hr Documented by: [id number] Infusion: 12/25/20 11:44 Dose: 50 mls/hr Documented by: [id number] Admin: 12/25/20 09:44 Dose: 50 mls/hr Documented by: [id number] Magnesium Sulfate/Dextrose (Magnesium Sulfate / D5w) 1 gm in 100 mls @ 50 mls/hr IV Q2H [facility] Stop: 12/26/20 15:29 Last Admin: 12/26/20 13:34 Dose: 50 mls/hr Documented by: [id number] Infusion: 12/26/20 13:34 Dose: 50 mls/hr Documented by: [id number] Admin: 12/26/20 11:44 Dose: 50 mls/hr Documented by: [id number] Insulin Aspart (Insulin Aspart 100 Units/Ml 3 Ml Pen) 0 units SC ACHS [facility] Stop: 01/19/21 09:16 Last Admin: 12/20/20 12:06 Dose: 8 units Documented by: [id number] Cosigned by: [id number] Admin: 12/20/20 10:18 Dose: 6 units Documented by: [id number] Cosigned by: [id number] Insulin Glargine (Insulin Glargine Solostar 100 Units/Ml 3 Ml Pen) 5 units SC NOW [facility] Stop: 12/20/20 07:27 Last Admin: 12/20/20 07:58 Dose: 5 units Documented by: [id number] Cosigned by: [id number] Insulin Glargine (Insulin Glargine Solostar 100 Units/Ml 3 Ml Pen) 5 units SC BID [facility] Stop: 01/19/21 20:59 Last Admin: 12/21/20 09:18 Dose: 5 units Documented by: [id number] Cosigned by: [id number] Admin: 12/20/20 20:55 Dose: 5 units Documented by: [id number] Cosigned by: [id number] Insulin Glargine (Insulin Glargine Solostar 100 Units/Ml 3 Ml Pen) 7 units SC BID [facility] Stop: 01/20/21 20:59 Last Admin: 12/22/20 00:41 Dose: 7 units Documented by: [id number] Cosigned by: [id number] Insulin Glargine (Insulin Glargine Solostar 100 Units/Ml 3 Ml Pen) [facility] Stop: 01/21/21 08:59 Last Admin: 12/22/20 08:17 Dose: 5 units Documented by: [id number] Cosigned by: [id number] Insulin Glargine (Insulin Glargine Solostar 100 Units/Ml 3 Ml Pen) 0 units SC [facility]; Protocol Stop: 01/21/21 20:59 Last Admin: 12/22/20 22:05 Dose: 5 units Documented by: [id number] Cosigned by: [id number] Insulin Human Regular (Insulin Human Regular) 0 units SC ACHS [facility] Stop: 01/19/21 16:29 Last Admin: 12/21/20 12:42 Dose: 10 units Documented by: [id number] Cosigned by: [id number] Admin: 12/21/20 09:19 Dose: 7 units Documented by: [id number] Cosigned by: [id number] Admin: 12/20/20 21:00 Dose: 6 units Documented by: [id number] Cosigned by: [id number] Admin: 12/20/20 17:32 Dose: 5 units Documented by: [id number] Cosigned by: [id number] Insulin Human Regular (Insulin Human Regular) 0 units SC 0000 [facility] Stop: 12/21/20 00:01 Last Admin: 12/20/20 23:45 Dose: Not Given Documented by: [id number] Cosigned by: [id number] Insulin Human Regular (Insulin Human Regular) 0 units SC 0730,1130,1630 [facility] Stop: 01/20/21 16:29 Last Admin: 12/23/20 17:07 Dose: Not Given Documented by: [id number] Admin: 12/23/20 12:08 Dose: 2 units Documented by: [id number] Cosigned by: [id number] Admin: 12/23/20 08:27 Dose: Not Given Documented by: [id number] Admin: 12/22/20 17:07 Dose: Not Given Documented by: [id number] Cosigned by: [id number] Admin: 12/22/20 12:38 Dose: 2 units Documented by: [id number] Cosigned by: [id number] Admin: 12/22/20 08:16 Dose: Not Given Documented by: [id number] Cosigned by: [id number] Admin: 12/21/20 17:28 Dose: 1 units Documented by: [id number] Cosigned by: [id number] Insulin Human Regular (Insulin Human Regular) 0 units SC 2100 [facility] Stop: 01/20/21 20:59 Last Admin: 12/22/20 21:57 Dose: Not Given Documented by: [id number] Cosigned by: [id number] Admin: 12/21/20 21:41 Dose: Not Given Documented by: [id number] Cosigned by: [id number] Insulin Human Regular (Insulin Human Regular) 0 units SC 0000 [facility] Stop: 12/22/20 00:01 Last Admin: 12/22/20 06:49 Dose: Not Given Documented by: [id number] Cosigned by: [id number] Insulin Human Regular (Insulin Human Regular) 0 units SC 0000 [facility] Stop: 12/23/20 00:01 Last Admin: 12/23/20 01:36 Dose: Not Given Documented by: [id number] Cosigned by: [id number] Levetiracetam (Levetiracetam 250 Mg Tab) 750 mg PO BID [facility] Stop: 01/19/21 09:16 Last Admin: 12/22/20 21:57 Dose: Not Given Documented by: [id number] Admin: 12/22/20 08:13 Dose: 750 mg Documented by: [id number] Admin: 12/21/20 21:35 Dose: 750 mg Documented by: [id number] Admin: 12/21/20 08:08 Dose: 750 mg Documented by: [id number] Admin: 12/20/20 20:52 Dose: 750 mg Documented by: [id number] Admin: 12/20/20 10:13 Dose: 750 mg Documented by: [id number] Miscellaneous (Remove Clonidine Patch) 1 ea N/A [id number] [facility] Stop: 01/19/21 05:58 Last Admin: 12/21/20 16:15 Dose: 1 ea Documented by: [id number] Admin: 12/20/20 10:15 Dose: Not Given Documented by: [id number] Miscellaneous (Check Clonidine Patch Placement) 1 ea N/A QS [facility] Stop: 01/19/21 07:59 Last Admin: 12/22/20 07:08 Dose: Not Given Documented by: [id number] Admin: 12/22/20 02:09 Dose: 1 ea Documented by: [id number] Admin: 12/21/20 15:08 Dose: 1 ea Documented by: [id number] Admin: 12/21/20 08:08 Dose: 1 ea Documented by: [id number] Admin: 12/20/20 23:12 Dose: 1 ea Documented by: [id number] Admin: 12/20/20 16:36 Dose: 1 ea Documented by: [id number] Admin: 12/20/20 10:09 Dose: 1 ea Documented by: [id number] Carmencellaneous (Carbohydrates For Hypoglycemia ) 15 - 30 gm PO UD PRN PRN Reason: Hypoglycemia Protocol Stop: 01/19/21 09:16 Last Admin: 12/23/20 16:07 Dose: 15 gm Documented by: [id number] Admin: 12/21/20 16:32 Dose: 15 gm Documented by: [id number] Miscellaneous (Remove Clonidine Patch) 1 ea N/A ONE ONE Stop: 12/22/20 14:01 Last Admin: 12/22/20 14:45 Dose: Not Given Documented by: [id number] Naloxone HCl (Naloxone Hcl 0.4 Mg/1 Ml Vial/Carp) Confirm Administered Dose 0.4 mg .ROUTE .STK-MED ONE Stop: 12/22/20 20:02 Last Admin: 12/22/20 22:03 Dose: 0.4 mg Documented by: [id number] Ondansetron HCl (Ondansetron Inj 2 Mg/Ml 2 Ml Vial) 4 mg IV NOW STA Stop: 12/20/20 00:15 Last Admin: 12/20/20 03:38 Dose: 4 mg Documented by: [id number] Ondansetron HCl (Ondansetron 4 Mg Od Tab) 4 mg PO NOW STA Stop: 12/20/20 03:30 Last Admin: 12/20/20 03:40 Dose: Not Given Documented by: [id number] Oxycodone HCl (Oxycodone Hcl Ir 5 Mg Tab (Immediate Release)) 10 mg PO NOW STA Stop: 12/20/20 03:30 Last Admin: 12/20/20 04:32 Dose: Not Given Documented by: [id number] Oxycodone HCl (Oxycodone Hcl Ir 5 Mg Tab (Immediate Release)) 10 mg PO NOW STA Stop: 12/20/20 05:29 Last Admin: 12/20/20 05:36 Dose: 10 mg Documented by: [id number] Oxycodone HCl (Oxycodone Hcl Ir 5 Mg Tab (Immediate Release)) 10 mg PO Q4H PRN PRN Reason: Pain Stop: 01/03/21 09:16 Last Admin: 12/21/20 23:34 Dose: 10 mg Documented by: [id number] Admin: 12/21/20 12:07 Dose: 10 mg Documented by: [id number] Admin: 12/21/20 06:46 Dose: 10 mg Documented by: [id number] Admin: 12/21/20 01:36 Dose: 10 mg Documented by: [id number] Sodium Bicarbonate (Sodium Bicarb 8.4% Inj 50 Meq/50 Ml Syr) 25 meq IV NOW STA Stop: 12/23/20 06:36 Last Admin: 12/23/20 12:45 Dose: Not Given Documented by: [id number] Sodium Polystyrene Sulfonate (Sodium Polystyrene Sulfonate 15g/60ml Susp) 15 gm PO Q6H DAMIR Stop: 12/23/20 12:31 Last Admin: 12/23/20 12:07 Dose: 15 gm Documented by: [id number] Admin: 12/23/20 08:26 Dose: 15 gm Documented by: [id number] Admin: 12/23/20 01:40 Dose: 15 gm Documented by: [id number] Admin: 12/22/20 19:23 Dose: 15 gm Documented by: [id number] Description This is a 21 electrode EEG with a single channel dedicated to limited EKG. The electrodes were placed in accordance with the International 10-20 system. This EEG was done as a bedside recording is of good technical quality revealing for no muscle or movement artifacts. Photic stimulation was performed. The patient appears to be somewhat drowsy by video analysis and EEG shows no evidence for normal background rhythm in the alpha range but rather a posterior head region maximum bilaterally symmetrical mid theta pattern which in central regions show central more delta activity with a mixture of theta delta waves of moderate amplitude noted bilaterally symmetrical and demonstrate no focal predominance. Beta activity difficulties seen bifrontally Photic stimulation provokes no important changes Drowsiness light sleep probably are recorded although is very difficult to ascertain based on video analysis of the patient movement but no normal waking tracing is seen No evidence for potential epileptogenic activity is noted Interpretation This EEG appears to show moderate generalized nonfocal and highly nonspecific abnormalities consistent with encephalopathy and revealing no focal findings and no associated potentially epileptogenic features Clinical Correlation This EEG appears to show a generalized moderate encephalopathy of nonspecific type without associated epileptiform discharges or lateralizing features Rodo Wright MD
[2020-12-26] MEDS: cefTRIAXone SODIUM 2,000 MG in DEXTROSE 5% 50 ML IV SCH (16:41)
--- NOTE | 2020-12-26 18:34 | Nephrology Progress Note ---
Date of Service December 26, 2020 Assessment & Plan (1) Renal failure (ARF), acute on chronic: Plan: -Renal function and has worsened since arrival; creat peaked at 3.2 on 07/22; this AM at 2.6 likely both ATN and obstructive uropathy -His blood pressure has been fairly labile -continue efforts to minimize lability in BG and BP (2) Altered mental status: Plan: -Mental status better after Narcan and improved renal function. Admission and Anticipated Discharge Date Admission Date: December 21, 2020 Subjective seen in f/u for IVAN. He feels better. No SOB. No leg swelling. Making urine and has ruiz now Review of Systems Review of Systems: All other systems were reviewed and negative except as noted in HPI Physical Exam Physical Exam: General exam: Appears comfortable, no acute distress HEENT: Pupils are equal and reactive to light Neck: No JVD, neck is supple trachea is midline Respiratory system: Clear breath sounds bilaterally. Gastrointestinal: Abdomen is soft, non distended, non tender, bowel sounds are present CVS: Regular rate and rhythm. No murmurs, rubs or gallops Musculoskeletal: No joint or muscle tenderness Extremities: Non tender, no edema, peripheral pulses are present Neuro: Oriented, no tremors, no focal neurological deficits Skin: No rashes Results & Data ([facility]) Vital Signs (Past 12 Hours) Vital Signs Temp Pulse Pulse Pulse Resp BP BP 12/26/20 16:39 36.5 C 70 16 138/72 12/26/20 16:18 73 12/26/20 12:07 36.5 C 82 16 194/105 H 12/26/20 08:12 103 H 177/99 H 12/26/20 08:00 88 12/26/20 07:55 36.9 C 86 16 154/74 H Pulse Ox 12/26/20 16:39 97 12/26/20 16:18 12/26/20 12:07 99 12/26/20 08:12 12/26/20 08:00 12/26/20 07:55 97 Laboratory Results 12/26/20 07:36 12/26/20 12/26/20 07:36 07:36 WBC 6.08 RBC 3.05 L MCV 86.6 MCH 29.2 MCHC 33.7 RDW Std Deviation 40.9 RDW Coeff of Rik 12.9 Plt Count 305 MPV 9.2 Phosphorus 3.1 D (1) Renal failure (ARF), acute on chronic Chronic kidney disease stage: stage 4 (severe)
--- NOTE | 2020-12-26 19:40 | Progress Notes ---
I am seeing Mr. Hamilton in followup of encephalopathy with episodes of decreased responsiveness, par tially responding to Narcan. His EEG fortunately showed no ongoing seizure activity. It is moderate ly generally slow and nonspecific. The patient has not had any seizures that are witnessed. His noah al function is somewhat improved compared to his admission. He is awake and alert. Speech and language are normal. Affect is appropriate. IMPRESSION: Change in mental status, polyfactorial. No evidence of ongoing seizure activity. When r enal function returns to baseline, would resume Keppra 750 mg b.i.d. and then check a Keppra level 2 weeks post-dose escalation. Of course, this may not occur during this hospitalization. Agree with Miranda PATRICIA if patient is able to have done given that he has a gastric pacemaker. The patient should see me in followup post discharge. Job ID: [id number]
[2020-12-27] MEDS: CHECK CLONIDINE PATCH PLACEMENT SCH ×3 (00:20→16:53)
[2020-12-27] MEDS: INSULIN HUMAN REGULAR SC SCH ×4 (00:20→18:04)
[2020-12-27] MEDS: oxyCODONE HCL IR 5 MG TAB (IMMEDIATE RELEASE) PO PRN ×5 (01:14→19:16)
[2020-12-27] MEDS: CLINDAMYCIN 600 MG in DEXTROSE 5% 50 ML IV SCH ×3 (04:02→20:16)
[2020-12-27] MEDS: CYANOCOBALAMIN 500 MCG TABLET (VITAMIN B-12) PO SCH (07:53)
[2020-12-27] MEDS: MAGNESIUM OXIDE 400 MG TAB PO SCH ×2 (07:53→21:00)
[2020-12-27] MEDS: GABAPENTIN 100 MG CAP PO SCH ×3 (07:54→20:59)
[2020-12-27] MEDS: ESCITALOPRAM OXALATE 10 MG TAB PO SCH (07:54)
[2020-12-27] MEDS: ADVANCED PROBIOTIC 1250 MG CAPSULE PO SCH (07:55)
[2020-12-27] MEDS: MULTIVITAMIN TAB PO SCH (07:55)
[2020-12-27] MEDS: THIAMINE HCL 100 MG in SYRINGE 9 ML IV SCH (07:55)
[2020-12-27] MEDS: HEPARIN SOD 5,000 UNIT/0.5 ML VIAL SQ SCH ×2 (07:55→20:58)
[2020-12-27] MEDS: FLUTICASONE/VILANTEROL 100/25MCG 14 PUFFS/INHALER INH SCH (07:56)
[2020-12-27] MEDS: PANTOprazole 40 MG TAB PO SCH (07:57)
[2020-12-27 08:48] LABS: BUN Creatinine Ratio 7.9 (10-20); Calcium 8.1 mg/dl (8.5-10.1); Creatinine Clr Calc Pharmacy 31.3 ml/min; Est GFR (African American) 27.8 ml/min; Potassium 3.3 mmol/L (3.5-5.1)
[2020-12-27] MEDS: amLODIPine BESYLATE 5 MG TAB PO SCH (08:52)
--- NOTE | 2020-12-27 10:04 | Hospitalist Progress Note ---
Date of Service December 27, 2020 Assessment & Plan (1) SOB (shortness of breath): Plan: Toxic metabolic encephalopathy Acute respiratory failure - last night patient was code purple, unresponsive, received Narcan, then became more awake and alert Respiratory failure, ABG obtained, pH showed acidosis Patient also obtained a half amp of bicarb overnight 12/23 - morning patient feeling much better, more awake breathing without difficulty however using supplemental oxygen (2L) 12/24 -Per nursing staff, noted patient more shaky contractures of hands, obtained CT head, negative Neurology also consulted History of seizure, Keppra dose reduced, this was discussed with pharmacy given renal function, Keppra level ordered - pending Vitamin B1 and B12 levels ordered B12 level normal (however patient also been on multivitamin since admission here) EEG obtained (12/26) MRI brain was ordered however patient has a gastric pacemaker that is not compatible with MRI Increased somnolence, hx of seizures 12/21 -Per nursing staff, patient was doing well earlier that day, however in the afternoon became extremely somnolent Nursing staff concerned about misuse of opiates, checked patient's bag, found his home oxycodone (these were now taken by the staff) Patient also had several hypoglycemic episodes, glycemic pharmacy on board Patient is able to answer questions appropriately however somnolent Likely secondary to opiate use and gabapentin use especially now with IVAN on CKD Hold gabapentin, oxycodone decreased from 10 mg to 5 mg, only give as needed Continue closely monitor respiratory and hemodynamic status Discussed with nephrology, resume gabapentin at lower dose at 100 TID Blood culture - negative, UA - negative CXR - Patchy airspace opacities within the right and left lungs which could represent multifocal pneumonia or related to aspiration. Diffuse prominence of pulmonary interstitium might be seen in infectious/inflamm atory process or in pulmonary edema. Pt on clinda + dapto (12/24) Wound culture shows MSSA, antibiotic switched from Dapto to ceftriaxone (12/26) CT head repeated - negative Neurology also consulted -plan to resume Keppra at 750 twice daily once renal function improves Vitamin B1 and B12 levels ordered (however patient has been on multivitamins since his admission here) 12/25 - most awake and aware, able to have conversation and follow commands, however now reports pain all over, chronic EEG obtained (12/26) - This EEG appears to show a generalized moderate encephalopathy of nonspecific type without associated epileptiform discharges or lateralizing features L ring finger wound/ulcer -Noted left ring finger ulcer by nursing staff ESR and CRP elevated, procalcitonin elevated Not clear if procalcitonin is elevated from his respiratory/unresponsive episode Patient started on clindamycin after his code purple, added Dapto for now Obtained wound culture - Staph species, MSSA Antibiotics switched from Dapto to ceftriaxone (12/26) Obtained x-ray of left hand (unable to obtain imaging with contrast due to renal failure, patient would not be able to have MRI due to lack of cooperation) Pt cannot have MRI due to gastric pacemaker Wound nurse and orthopedics consulted 12/25 -patient more awake and cooperative, will try to reimage the left hand 12/26 -obtained CT of left hand, patient unable to obtain MRI due to gastric pacer CT - No fractures or osteomyelitis identified within the left hand. Wound care and orthopedics evals -continue wound care, Aquacel AG dressings to be changed daily, no evidence of osteomyelitis, likely follow-up with orthopedics as outpatient Initial concern for poss. PE (on admission) - ruled out Rule out PE given abnormal D-dimer and malignancy history VQ scan, LE Dopplers obtained for PE work-up Both negative therefore IV heparin was stopped Since admission breathing on room air, denies any shortness of breath (after code purple, unresponsive episode - seems d/t opioid use?, resp. failure, on 2L of O2) 12/25 back on RA, breathing w/o difficulty Hypertension elevated on admission secondary to illness BP on 12/21 - on lower side, instructed nurse to take off clonidine patch, and will give small bolus of normal saline 12/22 - BP continues to be on lower side - hold amlodipine, hold clonidine, continue IV fluids, continue to closely monitor 12/24 -blood pressure now again increased, resume amlodipine stop IV fluids, continue to closely monitor Also can be due to opioid withdrawal now,12/25 - patient awake alert, and complaining of chronic pain 12/27 -patient denies any pain currently, however blood pressure elevated despite resuming home medications, amlodipine and clonidine Abdominal pain nausea vomiting diarrhea - POA, now resolved History gastroparesis status post gastric pacemaker Possible opioid withdrawal, history chronic pain on narcotics prior history confinement for opiate withdrawal secondary to running out of narcotic medications Rule out C. difficile, c. diff ordered - patient had no BM Judicious narcotic use, suspect possible misuse (As per conversation with ER medication materials specialist, patient not forthcoming about information regarding his Fentanyl patch being switched to Morphine Sulfate ER twice daily by PCP last month due to Fentanyl cost issues.) Urinary retention 12/22 -patient reports pain with urination, and suprapubic tenderness UA on admission unremarkable, will repeat UA Creatinine also elevated bladder distended noted on CT on admission obtained bladder scan, Placed Peace IVAN on CKD 3 secondary to illness Baseline UA, monitor creatinine response to IV fluids UA on 12/20 -unremarkable Cr on 12/21 - Cr 2.4 (on admission 12/20 Cr 2.2) Cr 3 on 12/22 -also bladder distended on CT on admission we will repeat UA, will obtain bladder scan and possibly straight cathed/Place Peace as may be obstructive in nature 12/22 - Straight cath for 1250 mL, Peace catheter placed, repeat UA negative Nephrology following 12/25 Cr improved to 2.4 12/26 -creatinine still elevated, IVAN not resolved DM1 - suboptimal control as of recent outpatient hemoglobin A1c of 11.6 % June 2020 current Hgb A1c 11.4% - Basal insulin adjusted for clear liquid diet for now, ISS BG goal 110-140, update hemoglobin A1c NSCLC stage III, status post surgery, incomplete chemotherapy secondary to intolerance -stable disease as per last oncology note from last month Follows with Dr. 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 Plan to restart Keppra at 750 twice daily as previously, pending improving renal function Chronic anemia, hemoglobin at baseline Past tobacco abuse DVT prophylaxis. Heparin Full code Admission and Anticipated Discharge Date Admission Date: December 21, 2020 Subjective Patient was code purple several nights ago, received Narcan, mental status much improved, patient was then communicative and awake alert Currently he is lying in bed, sleeping however easily arousable and able to ans wer questions appropriately Says he could not sleep last night due to pain, yesterday when he talked, he denied any pain Denies chest pain or shortness of breath, breathing on room air Updated patient on hospital course, patient seems to now remember what we talked about Discussed his lesion on the rib, Peace catheter and elevated creatinine, and uncontrolled BP EEG obtained yesterday, neurology following Peace catheter in, Cr still elevated, nephrology following BP now elevated despite resuming home meds Resumed pain medications cautiously Review of Systems Review of Systems: All systems reviewed & are unremarkable except as noted in Subjective Physical Exam Physical Exam: GENERAL: thin male in no respiratory distress HEENT: NC, EOMI, pupils equal and constricted, pale palpebral conjunctivae NECK : Supple, no tenderness CHEST : CTAB, no wheezing, crackles HEART : RRR, no obvious murmurs ABDOMEN: soft, non tender to palp., + bowel sounds : + Peace EXTREMITIES : No LE swelling/tenderness, moves extremities, left ring finger with ulcer/wound NEUROLOGIC : more awake than previously, able to answer questions appropriately, no facial asymmetry, moves extremities SKIN: pallor, warm Results & Data Results & Data ([facility]) Vital Signs (Past 12 Hours) Vital Signs Temp Pulse Pulse Resp BP BP Pulse Ox 12/27/20 08:38 36.7 C 83 18 177/97 H 99 12/27/20 04:31 36.6 C 86 16 182/93 H 97 12/27/20 00:32 72 12/26/20 23:37 36.6 C 78 16 150/73 H 93 Laboratory Results 12/27/20 12/27/20 12/27/20 Range/Units 07:03 06:06 00:08 Sodium 138 (136-145) mmol/L Potassium 3.3 L D (3.5-5.1) mmol/L Chloride 106 (98-107) mmol/L Carbon Dioxide 24 (21-32) mmol/L Anion Gap 9.0 (3-11) BUN 22 H (7-18) mg/dl Creatinine 2.83 H (0.6-1.4) mg/dl Est Cr Clr Drug Dosing 31.3 ml/min Est GFR ( Amer) 27.8 ml/min Est GFR (Non-Af Amer) 24.0 ml/min BUN/Creatinine Ratio 7.9 L (10-20) Glucose 221 H (70-99) mg/dl POC Glucose 220 H 237 H (70-99) mg/dl Calcium 8.1 L (8.5-10.1) mg/dl 12/26/20 12/26/20 12/26/20 Range/Units 17:38 16:24 11:19 Sodium (136-145) mmol/L Potassium (3.5-5.1) mmol/L Chloride (98-107) mmol/L Carbon Dioxide (21-32) mmol/L Anion Gap (3-11) BUN (7-18) mg/dl Creatinine (0.6-1.4) mg/dl Est Cr Clr Drug Dosing ml/min Est GFR ( Amer) ml/min Est GFR (Non-Af Amer) ml/min BUN/Creatinine Ratio (10-20) Glucose (70-99) mg/dl POC Glucose 245 H 197 H 242 H (70-99) mg/dl Calcium (8.5-10.1) mg/dl Medications Administered Current Inpatient Medications Amlodipine Besylate (Amlodipine Besylate 5 Mg Tab) 5 mg PO QAM [facility] Stop: 01/20/21 08:59 Last Admin: 12/27/20 08:52 Dose: 5 mg Documented by: Clonidine HCl (Clonidine Hcl 0.2 Mg/24 Hr Transderm Sys) 1 patch TD Q7D@0900 [facility] Stop: 01/24/21 14:59 Last Admin: 12/25/20 15:51 Dose: 1 patch Documented by: Cyanocobalamin (Cyanocobalamin 500 Mcg Tablet (Vitamin B-12)) 1,000 mcg PO QAM [facility] Stop: 01/24/21 10:14 Last Admin: 12/27/20 07:53 Dose: 1,000 mcg Documented by: Dextrose (Dextrose 50% 50 Ml Syringe) 25 - 50 ml IV UD PRN; Protocol PRN Reason: Hypoglycemia Protocol Stop: 01/19/21 13:40 Last Admin: 12/23/20 07:19 Dose: 50 ml Documented by: Escitalopram Oxalate (Escitalopram Oxalate 10 Mg Tab) 5 mg PO DAILY [facility] Stop: 01/24/21 10:14 Last Admin: 12/27/20 07:54 Dose: 5 mg Documented by: Fluticasone/Vilanterol (Fluticasone/Vilanterol 100/25mcg 14 Puffs/Inhaler) 1 puffs INH DAILY [facility] Stop: 01/19/21 08:59 Last Admin: 12/27/20 07:56 Dose: 1 puffs Documented by: Gabapentin (Gabapentin 300 Mg Cap) 300 mg PO TID [facility] Stop: 01/19/21 09:16 Last Admin: 12/22/20 08:13 Dose: 300 mg Documented by: Gabapentin (Gabapentin 100 Mg Cap) 100 mg PO TID [facility] Stop: 01/22/21 20:59 Last Admin: 12/27/20 07:54 Dose: 100 mg Documented by: Glucagon (Glucagon For Inj 1 Mg Vial) 1 mg SQ UD PRN; Protocol PRN Reason: Hypoglycemia Protocol Stop: 01/19/21 13:40 Glucose (Glucose 10 Tabs/Tube) 4 - 8 tabs PO UD PRN; Protocol PRN Reason: Hypoglycemia Protocol Stop: 01/19/21 13:40 Glucose (Glucose 40% Gel 15 Gm Tube) 15 - 30 gm PO UD PRN; Protocol PRN Reason: Hypoglycemia Protocol Stop: 01/19/21 13:40 Heparin Sodium (Porcine) (Heparin Sod 5,000 Unit/0.5 Ml Vial) 5,000 units SQ Q12 [facility] Stop: 01/19/21 20:59 Last Admin: 12/27/20 07:55 Dose: 5,000 units Documented by: Promethazine HCl 12.5 mg/ (Sodium Chloride) 50.5 mls @ 202 mls/hr IV Q6H PRN PRN Reason: Nausea And Vomiting Stop: 01/19/21 09:16 Last Infusion: 12/21/20 08:07 Dose: Infused Documented by: Naloxone HCl 5 mg/ Sodium (Chloride) 112.5 mls @ 8.325 mls/hr IV .[id number] [facility]; Protocol Stop: 01/22/21 01:59 Last Admin: 12/23/20 04:53 Dose: Not Given Documented by: Thiamine HCl 100 mg/ Syringe 10 mls @ 2 mls/min IV QAM [facility] Stop: 01/24/21 10:14 Last Admin: 12/27/20 07:55 Dose: 2 mls/min Documented by: Ceftriaxone Sodium 2,000 mg/ (Dextrose) 70 mls @ 140 mls/hr IV Q24H [facility]; Protocol Stop: 02/06/21 15:59 Last Infusion: 12/26/20 17:34 Dose: Infused Documented by: Clindamycin Phosphate 600 mg/ (Dextrose) 54 mls @ 100 mls/hr IV Q8H [facility] Stop: 01/02/21 11:59 Last Infusion: 12/27/20 04:29 Dose: Infused Documented by: Insulin Human Regular (Insulin Human Regular) 0 units SC Q6 [facility]; Protocol Stop: 01/26/21 11:59 Labetalol HCl (Labetalol Hcl Iv 5 Mg/Ml 20ml) 10 mg IV Q4H PRN PRN Reason: Hypertension Stop: 01/23/21 19:31 Last Admin: 12/26/20 12:22 Dose: 10 mg Documented by: Lactobacillus Acidoph/Casei/Rhamnos (Advanced Probiotic 1250 Mg Capsule) 2 cap PO DAILY [facility] Stop: 01/22/21 17:29 Last Admin: 12/27/20 07:55 Dose: 2 cap Documented by: Levetiracetam (Levetiracetam Soln 250 Mg/2.5 Ml Udp) 250 mg PO Q12 [facility] Stop: 01/24/21 20:59 Last Admin: 12/27/20 07:53 Dose: 250 mg Documented by: Magnesium Oxide (Magnesium Oxide 400 Mg Tab) 400 mg PO BID [facility] Stop: 01/24/21 09:14 Last Admin: 12/27/20 07:53 Dose: 400 mg Documented by: Miscellaneous (Carbohydrates For Hypoglycemia ) 15 - 30 gm PO UD PRN PRN Reason: Hypoglycemia Protocol Stop: 01/19/21 13:40 Miscellaneous (Remove Clonidine Patch) 1 ea N/A [id number] [facility] Stop: 01/31/21 08:58 Miscellaneous (Check Clonidine Patch Placement) 1 ea N/A QS [facility] Stop: 01/24/21 15:59 Last Admin: 12/27/20 07:57 Dose: 1 ea Documented by: Miscellaneous Information (Pharmacy Glycemic Mgmt Consult) 1 ea N/A UD PRN; Protocol PRN Reason: Consult Stop: 01/19/21 13:40 Morphine Sulfate (Morphine Sulfate Cr 60 Mg Tabcr) 60 mg PO BID [facility] Stop: 01/03/21 09:29 Last Admin: 12/22/20 08:23 Dose: Not Given Documented by: Multivitamins (Multivitamin Tab) 1 tab PO QAM [facility] Stop: 01/19/21 09:16 Last Admin: 12/27/20 07:55 Dose: 1 tab Documented by: Oxycodone HCl (Oxycodone Hcl Ir 5 Mg Tab (Immediate Release)) 5 mg PO Q4H PRN PRN Reason: Pain Stop: 01/08/21 11:14 Last Admin: 12/27/20 05:46 Dose: 5 mg Documented by: Pantoprazole Sodium (Pantoprazole 40 Mg Tab) [facility] [place] Stop: 01/19/21 09:16 Last Admin: 12/27/20 07:57 Dose: 40 mg Documented by:
[2020-12-27] MEDS ORDERED: POTASSIUM CHLORIDE CRTAB 20 MEQ TABCR PO STA (10:13)
--- NOTE | 2020-12-27 12:41 | Nephrology Progress Note ---
Date of Service December 27, 2020 Assessment & Plan Admission and Anticipated Discharge Date Admission Date: December 21, 2020 Subjective (1) Renal failure (ARF), acute on chronic: Plan: -Renal function and has worsened since arrival; creat peaked at 3.2 on 07/22; dropped but now rising again. cause likely both ATN and obstructive uropathy ( from Neurogenic Bladder) -His blood pressure has been fairly labile -continue efforts to minimize lability in BG and BP. --he wants ruiz removed. we can try to remove ruiz with q shift bladder scan. (2) Altered mental status: Plan: -Mental status better after Narcan and improved renal function. ---Given CKD and high dose of Long acting Morphine high risk of metabolites accumulation causing AMS. If possible lower the dose of MS contin Admission and Anticipated Discharge Date Admission Date: December 21, 2020 Subjective seen in f/u for IVAN. He feels better. No SOB. No leg swelling. Making urine and has ruiz now but wants this removed Review of Systems Review of Systems: All other systems were reviewed and negative except as noted in HPI Physical Exam Physical Exam: General exam: Appears comfortable, no acute distress HEENT: Pupils are equal and reactive to light Neck: No JVD, neck is supple trachea is midline Respiratory system: Clear breath sounds bilaterally. Gastrointestinal: Abdomen is soft, non distended, non tender, bowel sounds are present CVS: Regular rate and rhythm. No murmurs, rubs or gallops Musculoskeletal: No joint or muscle tenderness Extremities: Non tender, no edema, peripheral pulses are present Neuro: Oriented, no tremors, no focal neurological deficits Skin: No rashes Labs --creat rising again. K is low. Results & Data ([facility]) Vital Signs (Past 12 Hours) Vital Signs Temp Pulse Resp BP BP Pulse Ox 12/27/20 12:09 36.5 C 84 16 164/84 H 98 12/27/20 08:38 36.7 C 83 18 177/97 H 99 12/27/20 04:31 36.6 C 86 16 182/93 H 97
--- NOTE | 2020-12-27 14:16 | Pharmacy Report ---
Pharmacy Glycemic Short Note 2 - Date of Service December 27, 2020 - Glycemic Short BSG Results (Last 24 hours): 12/26/20 12/26/20 12/27/20 16:24 17:38 00:08 Glucose POC Glucose 197 H 245 H 237 H 12/27/20 12/27/20 12/27/20 06:06 07:03 11:18 Glucose 221 H POC Glucose 220 H 261 H OUTPATIENT ANTIDIABETIC REGIMEN: * Basaglar 7 units HS, Humalog SSI * A1c 11.4% ASSESSMENT: 12/27 * BSGs elevated yesterday, ranging 197-296 mg/dL * Received 15 units of SC regular insulin * Given labile BSGs with SC basal/bolus w/ multiple episodes of hypoglycemia, will continue on with scheduled regular insulin and adjust scale upwards 12/24 * Patient's BSGs yesterday were 48-629-02-130 mg/dL. Fasting today was 127 mg/dL. * Due to repeated lows yesterday decision was made to transition to Regular insulin SQ q6 dosing based upon BSG. * Based upon previous hospitalization this provided more stable BSGs. 12/23 * Patient received total of 12 units of insulin yesterday, of which 10 units were basal insulin * BSGs lower overnight, started on D5 infusion. Fasting BSG still in the 40s. Of note, patient with no PO intake yesterday. Basal insulin had been decreased from day prior * Plan to resume home basaglar dose of 7 units tonight. PO intake improving more with lunch time today 12/21 * Patient admitted with shortness of breath, abdominal pain, N/V. Hx of gastroparesis s/sp gastric pacemaker. Type 1 DM at home with elevated A1c on admission. * Pharmacy consulted for glycemic management. Received total of 35 units of insulin yesterday, of which 10 units were basal insulin. Patient known to glycemic service from prior admissions. BSGs tend to be very labile, especially with having N/V * Fasting BSG 214 mg/dL - plan to titrate basal insulin slightly more today / increase 20% * Continue same CF/CR for now, BSGs trending down quickly yesterday 210-196-74 mg/dL PLAN FOR INPATIENT GLYCEMIC CONTROL: * Hold outpatient oral diabetes medications * Bolus insulin * Regular insulin Q6hrs * If BSG less than 110: 1 unit * If BSG 110-140 mg/dl: 2 units * If BSG 141-180 mg/dL: 3 units * If BSG 181-210 mg/dL: 5 units * If BSG greater than 210 mg/dL: 6 units PLAN FOR DISCHARGE: * TBD
[2020-12-27] MEDS: cefTRIAXone SODIUM 2,000 MG in DEXTROSE 5% 50 ML IV SCH (16:53)
[2020-12-27] MEDS ORDERED: MELATONIN 3 MG TAB PO PRN (23:29)
[2020-12-28] MEDS: oxyCODONE HCL IR 5 MG TAB (IMMEDIATE RELEASE) PO PRN ×6 (00:05→22:52)
[2020-12-28] MEDS: CHECK CLONIDINE PATCH PLACEMENT SCH ×3 (00:18→17:32)
[2020-12-28] MEDS: INSULIN HUMAN REGULAR SC SCH ×3 (00:18→12:19)
[2020-12-28] MEDS: CLINDAMYCIN 600 MG in DEXTROSE 5% 50 ML IV SCH ×3 (04:07→19:55)
[2020-12-28 07:06] LABS: Hematocrit (blood only) 24.3 % (42-52); Hemoglobin 8.2 g/dL (14.0-18.0); Mean Corpuscular Hemoglobin 29.2 pg (25-34); Mean Corpuscular Hgb Conc 33.7 g/dL (32-36); Mean Corpuscular Volume 86.5 fL (80-100); Mean Platelet Volume 9.6 fL (7.4-10.4); Platelet Count 277 K/uL (130-400); RDW Coefficient of Variation 13.1 % (11.5-14.5); RDW Standard Deviation 41.2 fL (36.4-46.3); Red Blood Count 2.81 M/uL (4.7-6.1); White Blood Count 5.13 K/uL (4.8-10.8)
[2020-12-28 07:43] LABS: BUN Creatinine Ratio 9.3 (10-20); Calcium 8.2 mg/dl (8.5-10.1); Creatinine Clr Calc Pharmacy 29.7 ml/min; Est GFR (African American) 29.2 ml/min; Est GFR (Non-African American) 25.2 ml/min; Potassium 3.5 mmol/L (3.5-5.1)
[2020-12-28 07:49] LABS: C Reactive Protein 1.24 mg/dl (0-0.29); Phosphorus 3.9 mg/dl (2.5-4.9)
[2020-12-28] MEDS: THIAMINE HCL 100 MG in SYRINGE 9 ML IV SCH (08:04)
[2020-12-28] MEDS: GABAPENTIN 100 MG CAP PO SCH ×3 (08:04→20:07)
[2020-12-28] MEDS: CYANOCOBALAMIN 500 MCG TABLET (VITAMIN B-12) PO SCH (08:04)
[2020-12-28] MEDS: MAGNESIUM OXIDE 400 MG TAB PO SCH ×2 (08:04→20:06)
[2020-12-28] MEDS: PANTOprazole 40 MG TAB PO SCH (08:04)
[2020-12-28] MEDS: ADVANCED PROBIOTIC 1250 MG CAPSULE PO SCH (08:04)
[2020-12-28] MEDS: HEPARIN SOD 5,000 UNIT/0.5 ML VIAL SQ SCH ×2 (08:05→20:07)
[2020-12-28] MEDS: FLUTICASONE/VILANTEROL 100/25MCG 14 PUFFS/INHALER INH SCH (08:05)
[2020-12-28] MEDS: ESCITALOPRAM OXALATE 10 MG TAB PO SCH (08:06)
[2020-12-28] MEDS: MULTIVITAMIN TAB PO SCH (08:06)
[2020-12-28] MEDS: amLODIPine BESYLATE 5 MG TAB PO SCH ×2 (09:11→20:08)
--- NOTE | 2020-12-28 14:38 | Nephrology Progress Note ---
Date of Service December 28, 2020 Assessment & Plan Admission and Anticipated Discharge Date Admission Date: December 21, 2020 Subjective (1) Renal failure (ARF), acute on chronic: Plan: -Renal function and has worsened since arrival; creat peaked at 3.2 on 07/22; dropped and stable again. cause likely both ATN and obstructive uropathy ( from Neurogenic Bladder) ---His blood pressure has been fairly labile -continue efforts to minimize lability in BG and BP. -- ruiz removed yesterday and did fine with post void . NO ruiz needed. --BP is high. raise amlo to 5 bid and also add hydralazine 25 bid (2) Altered mental status: Plan: -Mental status better after Narcan and improved renal function. ---Given CKD and high dose of Long acting Morphine high risk of metabolites accumulation causing AMS. If possible lower the dose of MS contin Admission and Anticipated Discharge Date Admission Date: December 21, 2020 Subjective seen in f/u for IVAN. He feels better. No SOB. No leg swelling. Making urine and has ruiz now but wants this removed Review of Systems Review of Systems: All other systems were reviewed and negative except as noted in HPI Physical Exam Physical Exam: General exam: Appears comfortable, no acute distress HEENT: Pupils are equal and reactive to light Neck: No JVD, neck is supple trachea is midline Respiratory system: Clear breath sounds bilaterally. Gastrointestinal: Abdomen is soft, non distended, non tender, bowel sounds are present CVS: Regular rate and rhythm. No murmurs, rubs or gallops Musculoskeletal: No joint or muscle tenderness Extremities: Non tender, no edema, peripheral pulses are present Neuro: Oriented, no tremors, no focal neurological deficits Skin: No rashes Labs --creat rising again. K is low. Results & Data ([facility]) Vital Signs (Past 12 Hours) Vital Signs Temp Pulse Pulse Resp BP Pulse Ox 12/28/20 12:36 36.5 C 77 18 201/100 H 99 12/28/20 08: 36.6 C 78 17 187/98 H 99 12/28/20 03:46 36.5 C 68 20 155/93 H 98 12/28/20 02:58 60
[2020-12-28] MEDS ORDERED: ALBUT/IPRATROP 3MG/0.5MG NEB 3 ML VIAL NEB PRN (14:39)
[2020-12-28] MEDS ORDERED: guaiFENesin 200 MG TAB PO PRN (14:39)
--- NOTE | 2020-12-28 14:46 | Pharmacy Report ---
Pharmacy Glycemic Short Note 2 - Date of Service December 28, 2020 - Glycemic Short BSG Results (Last 24 hours): 12/27/20 12/27/20 12/28/20 16:10 17:56 00:06 Glucose POC Glucose 108 H 174 H 141 H 12/28/20 12/28/20 12/28/20 06:01 06:45 11:45 Glucose 229 H POC Glucose 254 H 201 H OUTPATIENT ANTIDIABETIC REGIMEN: * Basaglar 7 units HS, Humalog SSI * A1c 11.4% (12/20/20) ASSESSMENT: 12/28 * BSGs elevated yesterday, ranging 108-261 mg/dL * Received 16 units of SC regular insulin * Given labile BSGs with SC basal/bolus w/ multiple episodes of hypoglycemia and reported hypoglycemic unawareness, okay with mildly elevated BSGs * However, scheduled regular insulin clearly not working at this point, so will change back to conservative SC basal/bolus 12/24 * Patient's BSGs yesterday were 35-335-25-130 mg/dL. Fasting today was 127 mg/dL. * Due to repeated lows yesterday decision was made to transition to Regular i nsulin SQ q6 dosing based upon BSG. * Based upon previous hospitalization this provided more stable BSGs. 12/23 * Patient received total of 12 units of insulin yesterday, of which 10 units were basal insulin * BSGs lower overnight, started on D5 infusion. Fasting BSG still in the 40s. Of note, patient with no PO intake yesterday. Basal insulin had been decreased from day prior * Plan to resume home basaglar dose of 7 units tonight. PO intake improving more with lunch time today 12/21 * Patient admitted with shortness of breath, abdominal pain, N/V. Hx of gastroparesis s/sp gastric pacemaker. Type 1 DM at home with elevated A1c on admission. * Pharmacy consulted for glycemic management. Received total of 35 units of insulin yesterday, of which 10 units were basal insulin. Patient known to glycemic service from prior admissions. BSGs tend to be very labile, especially with having N/V * Fasting BSG 214 mg/dL - plan to titrate basal insulin slightly more today / increase 20% * Continue same CF/CR for now, BSGs trending down quickly yesterday 210-196-74 mg/dL PLAN FOR INPATIENT GLYCEMIC CONTROL: * Hold outpatient oral diabetes medications * Basal insulin - change back to Lantus * Lantus 7 units SC HS * Bolus insulin ACHS if eating, q6h if npo * Goal BSG Range: Low 140 mg/dL, High 180 mg/dL * Correction Factor: 60 mg/dL/unit * Carbohydrate ratio = 20 g/unit PLAN FOR DISCHARGE: * TBD
[2020-12-28] MEDS: cefTRIAXone SODIUM 2,000 MG in DEXTROSE 5% 50 ML IV SCH (17:32)
[2020-12-28] MEDS: INSULIN ASPART 100 UNITS/ML 3 ML PEN SC SCH ×2 (17:38→20:58)
--- NOTE | 2020-12-28 18:35 | Hospitalist Progress Note ---
Date of Service December 28, 2020 Assessment & Plan (1) SOB (shortness of breath): Plan: Toxic metabolic encephalopathy Acute respiratory failure - last night patient was code purple, unresponsive, received Narcan, then became more awake and alert Respiratory failure, ABG obtained, pH showed acidosis Patient also obtained a half amp of bicarb overnight 12/23 - morning patient feeling much better, more awake breathing without difficulty however using supplemental oxygen (2L) 12/24 -Per nursing staff, noted patient more shaky contractures of hands, obtained CT head, negative Neurology also consulted History of seizure, Keppra dose reduced, this was discussed with pharmacy given renal function, Keppra level ordered - pending Vitamin B1 and B12 levels ordered B12 level normal (however patient also been on multivitamin since admission here) EEG obtained (12/26) MRI brain was ordered however patient has a gastric pacemaker that is not compatible with MRI Increased somnolence, hx of seizures 12/21 -Per nursing staff, patient was doing well earlier that day, however in the afternoon became extremely somnolent Nursing staff concerned about misuse of opiates, checked patient's bag, found his home oxycodone (these were now taken by the staff) Patient also had several hypoglycemic episodes, glycemic pharmacy on board Patient is able to answer questions appropriately however somnolent Likely secondary to opiate use and gabapentin use especially now with IVAN on CKD Hold gabapentin, oxycodone decreased from 10 mg to 5 mg, only give as needed Continue closely monitor respiratory and hemodynamic status Discussed with nephrology, resume gabapentin at lower dose at 100 TID Blood culture - negative, UA - negative CXR - Patchy airspace opacities within the right and left lungs which could represent multifocal pneumonia or related to aspiration. Diffuse prominence of pulmonary interstitium might be seen in infectious/inflamm atory process or in pulmonary edema. Pt on clinda + dapto (12/24) Wound culture shows MSSA, antibiotic switched from Dapto to ceftriaxone (12/26) CT head repeated - negative Neurology also consulted -plan to resume Keppra at 750 twice daily once renal function improves Vitamin B1 and B12 levels ordered (however patient has been on multivitamins since his admission here) 12/25 - most awake and aware, able to have conversation and follow commands, however now reports pain all over, chronic EEG obtained (12/26) - This EEG appears to show a generalized moderate encephalopathy of nonspecific type without associated epileptiform discharges or lateralizing features Will consult pain management for narcotic management L ring finger wound/ulcer -Noted left ring finger ulcer by nursing staff ESR and CRP elevated, procalcitonin elevated Not clear if procalcitonin is elevated from his respiratory/unresponsive episode Patient started on clindamycin after his code purple, added Dapto for now Obtained wound culture - Staph species, MSSA Antibiotics switched from Dapto to ceftriaxone (12/26) Obtained x-ray of left hand (unable to obtain imaging with contrast due to renal failure, patient would not be able to have MRI due to lack of cooperation) Pt cannot have MRI due to gastric pacemaker Wound nurse and orthopedics consulted 12/25 -patient more awake and cooperative, will try to reimage the left hand 12/26 -obtained CT of left hand, patient unable to obtain MRI due to gastric pacer CT - No fractures or osteomyelitis identified within the left hand. Wound care and orthopedics evals -continue wound care, Aquacel AG dressings to be changed daily, no evidence of osteomyelitis, likely follow-up with orthopedics as outpatient Initial concern for poss. PE (on admission) - ruled out Rule out PE given abnormal D-dimer and malignancy history VQ scan, LE Dopplers obtained for PE work-up Both negative therefore IV heparin was stopped Since admission breathing on room air, denies any shortness of breath (after code purple, unresponsive episode - seems d/t opioid use?, resp. failure, on 2L of O2) 12/25 back on RA, breathing w/o difficulty Hypertension elevated on admission secondary to illness BP on 12/21 - on lower side, instructed nurse to take off clonidine patch, and will give small bolus of normal saline 12/22 - BP continues to be on lower side - hold amlodipine, hold clonidine, continue IV fluids, continue to closely monitor 12/24 -blood pressure now again increased, resume amlodipine stop IV fluids, continue to closely monitor Also can be due to opioid withdrawal now,12/25 - patient awake alert, and complaining of chronic pain 12/27 -patient denies any pain currently, however blood pressure elevated despite resuming home medications, amlodipine and clonidine Abdominal pain nausea vomiting diarrhea - POA, now resolved History gastroparesis status post gastric pacemaker Possible opioid withdrawal, history chronic pain on narcotics prior history confinement for opiate withdrawal secondary to running out of narcotic medications Rule out C. difficile, c. diff ordered - patient had no BM Judicious narcotic use, suspect possible misuse (As per conversation with ER medication market specialist, patient not forthcoming about information regarding his Fentanyl patch being switched to Morphine Sulfate ER twice daily by PCP last month due to Fentanyl cost issues.) Urinary retention 12/22 -patient reports pain with urination, and suprapubic tenderness UA on admission unremarkable, will repeat UA Creatinine also elevated bladder distended noted on CT on admission obtained bladder scan, Placed Peace IVAN on CKD 3 secondary to illness Baseline UA, monitor creatinine response to IV fluids UA on 12/20 -unremarkable Cr on 12/21 - Cr 2.4 (on admission 12/20 Cr 2.2) Cr 3 on 12/22 -also bladder distended on CT on admission we will repeat UA, will obtain bladder scan and possibly straight cathed/Place Peace as may be obstructive in nature 12/22 - Straight cath for 1250 mL, Peace catheter placed, repeat UA negative Nephrology following 12/25 Cr improved to 2.4 12/26 -creatinine still elevated, IVAN not resolved DM1 - suboptimal control as of recent outpatient hemoglobin A1c of 11.6 % June 2020 current Hgb A1c 11.4% - Basal insulin adjusted for clear liquid diet for now, ISS BG goal 110-140, update hemoglobin A1c NSCLC stage III, status post surgery, incomplete chemotherapy secondary to intolerance -stable disease as per last oncology note from last month Follows with Dr. 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 Plan to restart Keppra at 750 twice daily as previously, pending improving renal function Chronic anemia, hemoglobin at baseline Past tobacco abuse DVT prophylaxis. Heparin Full code Admission and Anticipated Discharge Date Admission Date: December 21, 2020 Subjective Pt was seen and examined Lying in bed with no distress resting comfortable Pt said that he feels ok Denies any chest pain, palpitation, dizziness and SOB Physical Exam Physical Exam: GENERAL: thin male in no respiratory distress HEENT: NC, EOMI, pupils equal and constricted, pale palpebral conjunctivae NECK : Supple, no tenderness CHEST : CTAB, no wheezing, crackles HEART : RRR, no obvious murmurs ABDOMEN: soft, non tender to palp., + bowel sounds : + Peace EXTREMITIES : No LE swelling/tenderness, moves extremities, left ring finger with ulcer/wound NEUROLOGIC : more awake than previously, able to answer questions appropriately, no facial asymmetry, moves extremities SKIN: pallor, warm Results & Data Results & Data ([facility]) Vital Signs (Past 12 Hours) Vital Signs Temp Pulse Resp BP BP Pulse Ox 12/28/20 15:17 36.6 C 82 18 120/71 99 12/28/20 12:36 36.5 C 77 18 201/100 H 99 12/28/20 08:21 36.6 C 78 17 187/98 H 99
[2020-12-28] MEDS: hydrALAZINE HCL 25 MG TAB PO SCH (20:57)
[2020-12-28] MEDS ORDERED: INSULIN GLARGINE SOLOSTAR 100 UNITS/ML 3 ML PEN SC SCH (21:00)
[2020-12-29] MEDS: CHECK CLONIDINE PATCH PLACEMENT SCH ×3 (00:54→16:53)
[2020-12-29] MEDS: oxyCODONE HCL IR 5 MG TAB (IMMEDIATE RELEASE) PO PRN ×2 (04:18→08:25)
[2020-12-29] MEDS: CLINDAMYCIN 600 MG in DEXTROSE 5% 50 ML IV SCH (04:19)
[2020-12-29] MEDS ORDERED: INSULIN GLARGINE SOLOSTAR 100 UNITS/ML 3 ML PEN SC ONE (08:00)
[2020-12-29] MEDS: THIAMINE HCL 100 MG in SYRINGE 9 ML IV SCH (08:23)
[2020-12-29] MEDS: HEPARIN SOD 5,000 UNIT/0.5 ML VIAL SQ SCH (08:24)
[2020-12-29] MEDS: GABAPENTIN 100 MG CAP PO SCH ×2 (08:24→14:38)
[2020-12-29] MEDS: MAGNESIUM OXIDE 400 MG TAB PO SCH (08:25)
[2020-12-29] MEDS: ESCITALOPRAM OXALATE 10 MG TAB PO SCH (08:26)
[2020-12-29] MEDS: hydrALAZINE HCL 25 MG TAB PO SCH (08:26)
[2020-12-29] MEDS: MULTIVITAMIN TAB PO SCH (08:27)
[2020-12-29] MEDS: FLUTICASONE/VILANTEROL 100/25MCG 14 PUFFS/INHALER INH SCH (08:27)
[2020-12-29] MEDS: ADVANCED PROBIOTIC 1250 MG CAPSULE PO SCH (08:27)
[2020-12-29] MEDS: PANTOprazole 40 MG TAB PO SCH (08:27)
[2020-12-29] MEDS: INSULIN ASPART 100 UNITS/ML 3 ML PEN SC SCH ×3 (08:28→16:54)
[2020-12-29] MEDS: CYANOCOBALAMIN 500 MCG TABLET (VITAMIN B-12) PO SCH (08:31)
--- NOTE | 2020-12-29 09:02 | Pain Management Consultation ---
Date of Consultation December 29, 2020 Assessment & Plan (1) Diabetic peripheral neuropathy: (2) Opioid dependence: (3) Renal failure (ARF), acute on chronic: Chronic kidney disease stage: stage 4 (severe) (4) Finger infection: 1. Patient indicated transition from fentanyl to morphine in the outpatient setting due to cost of fentanyl although had indicated fentanyl was adequately controlling his pain at 100 mcg every 48 hours. Upon review of PDMP, this appears to be the case as he had been receiving fentanyl 100 mcg/h patch consistently #15/month over the past 2 years. Patient was then transitioned to MS Contin 60 mg every 12 hours with an initial prescription filled on 06/21/2020. The patient then had a gap in opiate prescribing from 07/04/2020 to 11/10/2020 possibly related to hospital and rehabilitative admissions per his report- records unavailable for review. Patient indicated he was utilizing MS Contin 60 mg every 12 hours and OxyIR for as needed breakthrough pain immediately prior to this admission. Patient's code purple event potential related to morphine metabolites due to his acute on chronic renal failure versus him being out of opiate therapy for short period of time prior to his admission. Will contact his PCP regarding patient's resumption of fentanyl. This would likely need to be a prior authorization issue, but argument could be made based on recent experience with MS Contin and OxyIR to resume fentanyl therapy initially at 25 mcg dose. Alternatively, if he needs to maintain MS Contin due to insurance related issues would recommend resuming at 30 mg every 12 hours. Recommend patient continue with OxyIR 5 mg every 4 hours or as needed breakthrough pain upon this admission pending investigation of above. Thank you for allowing us to precipitate in the care of Mr. Hamilton. History of Present Illness Reason for Consultation: Chronic intractable neuropathic pain Requesting Physician: Shira Pavon MD Attending Physician: Shira Pavon MD History of Present Illness Mr. Jc is a 55-year-old white male who is well-known to the [facility] pain service from prior treatment most recently in 2017. The patient had prior treatment with intrathecal opiate therapy for treatment of his chronic neuropathic pain complaints which was explanted due to CSF leak and infection in approximately 2017. The patient has been under the care of his primary care provider over this interval reportedly utilizing fentanyl 100 mcg every 48 hours in the outpatient setting, which he reports was adequately controlling his pain. Due to a change in his insurance coverage and inability to afford fentanyl fentanyl was discontinued earlier in 2020 with last prescription per review of PDMP of 06/04/2020 for #8 patches. Patient reports that he was then transitioned to MS Contin 60 mg every 12 hours which he reports has been ineffective at controlling his pain. Review of PDMP indicates a significant gap in opiate prescribing from July through November. The patient's explanation was that he was admitted for an extended period of time during this timeframe and in a rehabilitative facility for approximately 2 months. Patient indicates that he had residual fentanyl patches which allowed him to adequately control his pain. The patient was then admitted to [facility] on 12/20/2020 after he had presented with nausea, vomiting, diarrhea and shortness of breath. The patient does have prior history of lung cancer with left-sided lobectomy. Patient also has chronic gastroparesis with gastric stimulator in place. There was concern about opiate withdrawal upon his admission-urine drug screening was not completed upon admission. The patient's MS Contin 60 mg every 12 hours was resumed upon this admission, but the patient unfortunately experienced a code purple event on 12/21/2020 with respiratory depression which responded to Narcan therapy. His MS Contin has been held since that time. He was found to have residual oxycodone from home in his home bag. These were confiscated. OxyIR was reduced at 5 mg every 4 hours which he indicates moderate short-term reduction in pain only. Patient had acute on chronic renal failure upon this admission and was suspected to have morphine metabolite which may have contributed to his code purple event. Patient indicates that his pain remains paresthetic and dysesthetic in all 4 limbs predominantly distally. He describes this pain as burning, shooting and sharp in characteristic ranging between a 3-8/10. His pain is similar in location and characteristic as it has been chronically without change. The patient denies any true radicular pattern to his pain complaint. The patient also continues to have left chest wall pain which has been chronic. The pain is episodic, sharp and aggravated with movement, deep breathing, coughing or sneezing activities. Has neuropathic pain in all 4 limbs as his predominant pain generator. Patient does have wound on left ring finger and has been evaluated by Ortho. No surgical intervention was recommended. He is on IV anti biotic therapy. Patient indicates that he is moving his bowels. His appetite is normal and he denies nausea, vomiting or gastric fullness. Patient indicates no further constitutional complaints at this time. Plan of care discussed with Dr. Idalia Hernandez. Pain Assessment Full Body Front + Back: 1. Right upper extremity nondermatomal neuropathic pain 2. Left upper extremity nondermatomal neuropathic pain 3. Right lower extremity nondermatomal neuropathic pain 4. Left lower extremity nondermatomal neuropathic pain Pain scale - at its best (0-10): 3 Pain scale - at its worst (0-10): 8 Allergies Allergy/AdvReac Type Severity Reaction Status Date / Time bee venom protein (honey bee) Allergy Mild SWELLING Verified 12/20/20 07:02 AT SITE, SOB Penicillins Allergy Unknown "SINCE Verified 12/20/20 07:02 "-Amoxicillin cat dander Allergy Unknown Verified 12/20/20 07:02 Home Medications Medication Instructions Recorded Confirmed Type albuterol sulfate 90 mcg/actuation 2 puff INHALATION Q4H PRN 05/05/18 12/20/20 History aerosol inhaler epinephrine 0.3 mg/0.3 mL 0.3 mg IM Q3H PRN 05/05/18 12/20/20 History injection, auto-injector (EpiPen) gabapentin 300 mg capsule 300 mg PO TID 05/05/18 12/20/20 History insulin glargine 100 unit/mL (3 7 unit SUBCUT HS 05/05/18 12/20/20 History mL) subcutaneous pen (Basaglar KwikPen U-100 Insulin) insulin lispro 100 unit/mL 1 sliding scale dose SUBCUT UD 05/05/18 12/20/20 History subcutaneous cartridge (Humalog U-100 Insulin) multivitamin 1 tab PO QAM 05/05/18 12/20/20 History oxycodone 10 mg tablet 10 mg PO Q4H PRN 05/05/18 12/20/20 History pantoprazole 40 mg tablet,delayed 40 mg PO QAM 05/05/18 12/20/20 History release clonidine 0.2 mg/24 hr weekly 1 patch TRANSDERMAL WK 01/23/20 12/20/20 History transdermal patch escitalopram oxalate 10 mg tablet 10 mg PO DAILY 01/24/20 12/20/20 History (Lexapro) fluticasone 250 mcg-salmeterol 50 1 inh INHALATION BID 01/24/20 12/20/20 History mcg/dose blistr powdr for inhalation (Wixela Inhub) amlodipine 5 mg tablet (Norvasc) 5 mg PO QAM #30 tab 01/29/20 12/20/20 Rx levetiracetam 750 mg tablet 750 mg PO BID 30 Days #60 tab 01/29/20 12/20/20 Rx (Keppra) MorphaBond ER 60 mg PO BID 12/20/20 12/20/20 History cyclobenzaprine 5 mg tablet 5 mg PO TID PRN 12/20/20 12/20/20 History ondansetron 8 mg disintegrating 8 mg PO Q8H PRN 12/20/20 12/20/20 History tablet Pain History Pain Intensity Pain scale - at its best (0-10): 3 Pain scale - at its worst (0-10): 8 Patient History Medical History (Updated 12/29/20 @ 09:16 by Dave Ch PA-C) Acute dyspnea Acute hyponatremia IVAN (acute kidney injury) Anemia Chest pain No current chest pain...related to reflux per patient Chronic pain COPD (chronic obstructive pulmonary disease) Diabetes mellitus type 2, uncontrolled Diabetic autonomic neuropathy Diabetic peripheral neuropathy Discharge planning issues DVT prophylaxis Gastroparesis "s/p gastric stimulator" Hypertension Hypomagnesemia Intractable nausea and vomiting 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 One 1 mm polyp in the ascending colon resected. One benign appearing 1 mm polyp in the rectum resected. Internal hemorrhoids; Dr. Demarco" H/O esophagogastroduodenoscopy "01/26/2015- [place] Grade B reflux esophagitis, gastritis; Dr. Major" History of cholecystectomy History of tonsillectomy and adenoidectomy Hx of total knee arthroplasty S/P lobectomy of lung "left upper lobectomy for adenoCa" On 08/05/16 16:30 Edie Mcfarland wrote [place] [facility] [place]" Status post insertion of intrathecal pump explanted Family History Other Family history non-contributory Social History Smoking Status: Former smoker Second Hand Exposure: No; Do You Dip or Chew Tobacco: No; Tobacco Cessation Education Requested by Patient: No Hx Alcohol Use: Yes Alcohol type: beer Hx Substance Use: Yes Last Used Substance: Just Prior to Arrival Last Used Substance Other:: Four hours ago Substance Use Type Other:: fentanyl patch 24hrs a day-refused removal of 2 patches Preferred Language: Kazakh Communication Ability: Effective Geoscience Laboratory Technician Required: No Beliefs That Will Affect Care: Moravian Moravian Beliefs: Mosque marital status: Single Current Living Situation: Alone Other Information That Helps Us Care for You: No Feels Safe at Home: Yes Safety Concerns: Afraid for Self Assistive Devices: Cane Physical Exam Physical Exam: General: Patient sitting quietly in exam room in no acute distress. Patient sitting up eating his breakfast. Speech and thought process appropriate. Mood and affect appropriate. Cognition intact. Head: Normocephalic and atraumatic. ENT: No evidence of nasal or oral mucosal lesions. Mucous membranes are moist. Eyes: Pupils equal round reactive to light. Neck: Supple without adenopathy and full range of motion. Chest: Nontender to palpation of the costosternal junction. Patient is tender along the posterior lateral chest wall on the left side. Patient tender with AP and lateral compression of the left side. Slightly hyperalgesic response. Pain is most probably from approximately the level of T5-T8 and the lateral chest wall extending from the posterior axillary line through the anterior axillary line. No visible rash appears multiple well-healed surgical incisions status post his prior lung surgical procedures. Abdomen: Soft and nondistended. No organomegaly. Bowel sounds active. Back/spine: Complete loss of lumbar lordosis. Nontender over the midline. No focal facet or SI joint tenderness. Upper extremities: Patient has diminished sensation to sharp and dull in upper extremities in nondermatomal patterns. Strength testing was 5/5 with handgrip and opposition. He does have some muscular atrophy appreciated. Patient has dressing in place in the left ring finger which was not removed for visual inspection. Lower extremities: Diminished sensation to sharp and dull in nondermatomal patterns bilaterally. Plantar flexion 5/5 and equal bilaterally. EHL testing 4/5 bilaterally and equal. No evidence of edema. Neurologic: Cranial nerves grossly intact. Ambulatory function Not witnessed.
[2020-12-29] MEDS: amLODIPine BESYLATE 5 MG TAB PO SCH (09:12)
--- NOTE | 2020-12-29 11:27 | Pharmacy Report ---
Pharmacy Glycemic Short Note 2 - Date of Service December 29, 2020 - Glycemic Short BSG Results (Last 24 hours): 12/28/20 12/28/20 12/28/20 11:45 17:35 20:41 POC Glucose 201 H 159 H 247 H 12/28/20 12/29/20 23:21 07:07 POC Glucose 227 H 231 H OUTPATIENT ANTIDIABETIC REGIMEN: * Basaglar 7 units HS, Humalog SSI * A1c 11.4% (12/20/20) ASSESSMENT: 12/28 * BSGs elevated yesterday, ranging 159-257 mg/dL, fasting BSG of 231 mg/dL this morning * Changed from SC regular q6h back to SC basal/bolus last evening * Patient tends to have lows following large correctional insulin doses, so will keep very loose CF for now 12/24 * Patient's BSGs yesterday were 85-454-88-130 mg/dL. Fasting today was 127 mg/dL. * Due to repeated lows yesterday decision was made to transition to Regular insulin SQ q6 dosing based upon BSG. * Based upon previous hospitalization this provided more stable BSGs. 12/23 * Patient received total of 12 units of insulin yesterday, of which 10 units were basal insulin * BSGs lower overnight, started on D5 infusion. Fasting BSG still in the 40s. Of note, patient with no PO intake yesterday. Basal insulin had been decreased from day prior * Plan to resume home basaglar dose of 7 units tonight. PO intake improving more with lunch time today 12/21 * Patient admitted with shortness of breath, abdominal pain, N/V. Hx of gastroparesis s/sp gastric pacemaker. Type 1 DM at home with elevated A1c on admission. * Pharmacy consulted for glycemic management. Received total of 35 units of insulin yesterday, of which 10 units were basal insulin. Patient known to glycemic service from prior admissions. BSGs tend to be very labile, especially with having N/V * Fasting BSG 214 mg/dL - plan to titrate basal insulin slightly more today / increase 20% * Continue same CF/CR for now, BSGs trending down quickly yesterday 210-196-74 mg/dL PLAN FOR INPATIENT GLYCEMIC CONTROL: * Hold outpatient oral diabetes medications * Basal insulin - * Lantus 3 units SC x 1 this morning * Lantus scale HS to provide up to 10 units of Lantus today (see EHR for details) * Bolus insulin ACHS if eating, q6h if npo * Goal BSG Range: Low 140 mg/dL, High 180 mg/dL * Correction Factor: 55 mg/dL/unit * Carbohydrate ratio = 18 g/unit PLAN FOR DISCHARGE: * To be determined
[2020-12-29] MEDS: LABETALOL HCL IV 5 MG/ML 20ML IV PRN (11:57)
[2020-12-29 12:10] LABS: BUN Creatinine Ratio 12.1 (10-20); Calcium 8.3 mg/dl (8.5-10.1); Creatinine Clr Calc Pharmacy 33.5 ml/min; Est GFR (African American) 33.8 ml/min; Est GFR (Non-African American) 29.1 ml/min; Potassium 3.6 mmol/L (3.5-5.1)
[2020-12-29] MEDS ORDERED: MoRPHine SULFATE CR 15 MG TABCR PO SCH (13:45)
--- NOTE | 2020-12-29 14:20 | Nephrology Progress Note ---
Date of Service December 29, 2020 Assessment & Plan Admission and Anticipated Discharge Date Admission Date: December 21, 2020 Subjective (1) Renal failure (ARF), acute on chronic: Plan: -Renal function and has worsened since arrival; creat peaked at 3.2 on 07/22; dropped again. cause likely both ATN and obstructive uropathy ( from Neurogenic Bladder) ---His blood pressure has been fairly labile -- Check His Standing BP to assess for postural hypotension-possible given Type 1 DM and Neurogenic Bladder (2) Altered mental status: Plan: -Mental status better after Narcan and improved renal function. ---Given CKD and high dose of Long acting Morphine high risk of metabolites accumulation causing AMS. If possible lower the dose of MS contin Admission and Anticipated Discharge Date Admission Date: December 21, 2020 Subjective seen in f/u for IVAN. He feels better. No SOB. No leg swelling. Making urine -no issues Review of Systems Review of Systems: All other systems were reviewed and negative except as noted in HPI Physical Exam Physical Exam: General exam: Appears comfortable, no acute distress HEENT: Pupils are equal and reactive to light Neck: No JVD, neck is supple trachea is midline Respiratory system: Clear breath sounds bilaterally. Gastrointestinal: Abdomen is soft, non distended, non tender, bowel sounds are present CVS: Regular rate and rhythm. No murmurs, rubs or gallops Musculoskeletal: No joint or muscle tenderness Extremities: Non tender, no edema, peripheral pulses are present Neuro: Oriented, no tremors, no focal neurological deficits Skin: No rashes Labs --creat dropping again. Results & Data ([facility]) Vital Signs (Past 12 Hours) Vital Signs Temp Pulse Pulse Resp BP Pulse Ox 12/29/20 10:56 36.7 C 80 19 177/104 H 98 12/29/20 07:53 76 12/29/20 07:38 36.6 C 83 19 183/99 H 98 12/29/20 04:17 36.8 C 78 16 168/93 H 98
[2020-12-29 15:33] VITALS: TEMP 97.7; O2SAT 99
[2020-12-29] MEDS: cefTRIAXone SODIUM 2,000 MG in DEXTROSE 5% 50 ML IV SCH (16:51)
--- NOTE | 2020-12-29 16:59 | Discharge Summary ---
Date of Service December 29, 2020 Admission HPI Per Admitting Provider History obtained from patient and records. Medical history significant for COPD, NSCLC stage III, status post surgery, incomplete chemotherapy secondary to intolerance, IBD, gastroparesis status post gastric pacemaker, chronic pain on narcotics, HTN, DM1, DM neuropathy, past tobacco abuse, CRI (baseline creatinine 2), chronic anemia (baseline hemoglobin 9), seizure disorder as per records, hx neurogenic bladder as per records. Last [facility] confinement January 2020 syncope versus hypoglycemic seizure. Keppra dose increased on discharge. Patient had run out of morphine ER which he takes for chronic pain from his neuropathy. Patient admitted at [facility] last month for possible opioid withdrawal. 4 days history of abdominal discomfort, nausea, vomiting, diarrhea symptoms with fever chills. Shortness of breath without chest pain or unusual cough symptoms. Worsening generalized pain. Achy headache symptoms. Patient consulted ER for evaluation. Medical History as above Surgical History : Knee surgery, thorascopy, lymphadenectomy, lung lobectomy, tonsillectomy/adenoidectomy Family History : Lung cancer, diabetes, renal cell carcinoma Personal/Social history : Past tobacco abuse, no EtOH intake, disabled Admission Exam Per Admitting Provider GENERAL: uncomfortable, no respiratory distress SKIN: Pallor, warm HEENT: Pale palpebral conjunctivae, no ptosis, dry buccal mucosa NECK : Supple, no tenderness CHEST : Decreased breath sounds, no tenderness HEART : RRR, no obvious murmurs ABDOMEN: Some distention, nontender EXTREMITIES : No LE swelling/tenderness, no other conspicuous deformities noted NEUROLOGIC : Coherent, no facial asymmetry, no other gross focality Principal Diagnosis Toxic metabolic encephalopathy Acute respiratory failure Increased somnolence Hx of seizures Left ring finger wound/ulcer Hypertension Urinary retention IVAN on CKD Diabetes type 1 NSCLC stage III Chronic anemia Discharge Exam GENERAL: thin male in no respiratory distress HEENT: NC, EOMI, pupils equal and constricted, pale palpebral conjunctivae NECK : Supple, no tenderness CHEST : CTAB, no wheezing, crackles HEART : RRR, no obvious murmurs ABDOMEN: soft, non tender to palp., + bowel sounds : + Peace EXTREMITIES : No LE swelling/tenderness, moves extremities, left ring finger with ulcer/wound NEUROLOGIC : more awake than previously, able to answer questions appropriately, no facial asymmetry, moves extremities SKIN: pallor, warm Discharge Data Allergies Allergy/AdvReac Type Severity Reaction Status Date / Time bee venom protein (honey bee) Allergy Mild SWELLING Verified 12/20/20 07:02 AT SITE, SOB Penicillins Allergy Unknown "SINCE Verified 12/20/20 07:02 "-Amoxicillin cat dander Allergy Unknown Verified 12/20/20 07:02 Consultations 12/20/20 04:38 ED Decision to Admit Stat 12/22/20 11:11 Consult Nephrology Routine 12/24/20 12:02 Consult Neurology Routine 12/26/20 08:00 Consult Orthopedic Surgery Routine 12/28/20 14:35 Consult Pain Management Routine Ordered Studies 12/20/20 00:14 CT chest diagnostic wo con Urgent 12/20/20 05:25 CT abd pelvis wo con Urgent CT head/brain wo con Urgent 12/20/20 07:25 US venous doppler LE BI Routine 12/24/20 11:36 CT head/brain wo con Routine 12/26/20 12:18 CT hand LT wo con Routine LEFT HAND CT CT DOSE: 435.74 mGy.cm HISTORY: Left fourth finger swelling. r/o osteo of Left ring finger TECHNIQUE: Multiaxial CT images of the left hand were performed and reformatted in the sagittal and coronal plane without the use of contrast. A dose lowering technique was utilized adhering to the principles of ALARA. COMPARISON: Left hand radiograph 12/24/2020. FINDINGS: There is mild soft tissue swelling within the second through fourth fingers. No fracture or dislocation. No opaque foreign bodies. No underlying bony destruction to suggest an osteomyelitis. No loculated fluid collections to suggest an abscess. Mild vascular calcifications are noted. IMPRESSION: No fractures or osteomyelitis identified within the left hand. ACT 112: Negative or not required by law. Electronically signed by: Danilo Langley M.D. 12/26/2020 2:09 PM Dictated: 12/26/20 1406Transcribed: 12/26/20 1406 XR hand LT min 3V routine CLINICAL HISTORY: finger ulcer , r/o osteo COMPARISON: None FINDINGS: A bandage on the fourth finger is noted. There is no acute fracture. There is no radiographic evidence of osteomyelitis. Vascular calcification is incidentally noted. No radiopaque foreign bodies are identified. IMPRESSION: No acute fracture. No radiographic evidence of acute osteomyelitis. ACT 112: Negative or not required by law. Electronically signed by: Bryce Perez M.D. 12/24/2020 4:01 PM Dictated: 12/24/20 1600Transcribed: 12/24/[address] OF THE HEAD WITHOUT CONTRAST CLINICAL HISTORY: follow up, AMS, hx of unresponsive episode COMPARISON STUDY: MRI of the brain January 25, 2020. Head CT December 20, 2020. CT DOSE: 537.48 mGy.cm TECHNIQUE: Helical axial images of the head were obtained without IV contrast. Automated exposure control was utilized for the study. A dose lowering technique was utilized adhering to the principles of ALARA. FINDINGS: No acute intracranial hemorrhage, midline shift or mass effect is present. The ventricular system is unremarkable. The basal cisterns are patent. No extra-axial collections are present. There are no findings to suggest acute dural sinus thrombosis or acute territorial infarct. No significant calvarial abnormalities are present. IMPRESSION: No acute intracranial findings. ACT 112: Negative or not required by law. Electronically signed by: Bryce Perez M.D. 12/24/2020 12:24 PM Dictated: 12/24/20 1222Transcribed: 12/24/20 1222 XR chest 1V portable CLINICAL HISTORY: episode of unresponsiveness, r/o aspiration COMPARISON STUDY: January 23, 2020 FINDINGS: No pneumothorax. No pleural effusion. Patchy airspace opacities are seen at the left mid to lower lung and right midlung. Mild diffuse reticular nodular prominence of pulmonary interstitium is seen bilaterally and was not visualized during prior study. Cardiomediastinal silhouette is within normal limits in size. Pulmonary vasculature is indistinct.. Osseous structures: unremarkable IMPRESSION: 1. Patchy airspace opacities within the right and left lungs which could represent multifocal pneumonia or related to aspiration. 2. Diffuse prominence of pulmonary interstitium might be seen in infectious/inflammatory process or in pulmonary edema. ACT 112: Negative or not required by law. The above report was generated using voice recognition software. It may contain grammatical, syntax or spelling errors. Electronically signed by: Christine Ruiz DO 12/23/2020 2:28 PM Dictated: 12/23/20 1425Transcribed: 12/23/20 1425 NUCLEAR PULMONARY PERFUSION SCAN CLINICAL HISTORY: Dyspnea. Elevated d-dimer. COMPARISON STUDY: Chest x-ray dated 01/23/2020. Chest CT dated 12/20/2020. TECHNIQUE: Following the IV administration of 5.7 mCi of technetium 99m MAA. Perfusion images were acquired in the anterior, posterior, and oblique projections. Note that interpretation is suboptimal without current plain film correlate. FINDINGS: A chest x-ray performed 01/23/2020 shows volume loss in the left lung consistent with previous surgical resection. No airspace consolidation or pleural effusion is identified. Volume loss in the left lung is consistent with previous resection. No perfusion defects are identified on the perfusion imaging. IMPRESSION: There is no scintigraphic evidence of pulmonary embolus. ACT 112: Negative or not required by law. Electronically signed by: Russell Ty M.D. 12/20/2020 10:04 AM Dictated: 12/20/20 1002Transcribed: 12/20/20 1002 BILATERAL LOWER EXTREMITY VENOUS DOPPLER HISTORY: Abnormal d-dimer. Assess for DVT. COMPARISON STUDY: None. FINDINGS: There is normal compressibility, flow, and augmentation within the bilateral lower extremity deep venous systems. IMPRESSION: No DVT within the right or left lower extremity. ACT 112: Negative or not required by law. Electronically signed by: Danilo Langley M.D. 12/20/2020 8:46 AM Dictated: 12/20/20 0846Transcribed: 12/20/[address] head/brain wo con CLINICAL HISTORY: 55 years-old Male with hill. Acute headache TECHNIQUE: Multiple axial CT images of the head were obtained without contrast. A dose lowering technique was utilized adhering to the principles of ALARA. COMPARISON: 01/24/[address] FINDINGS: No acute intracranial hemorrhage, midline shift, intracranial mass, hydrocephalus, territorial ischemia or abnormal extra-axial collection. The calvarium is intact. The paranasal sinuses, mastoid air cells, and middle ear cavities are clear. IMPRESSION: No acute intracranial abnormality. ACT 112: Negative or not required by law. The above report was generated using voice recognition software. It may contain grammatical, syntax or spelling errors. Electronically signed by: Oumar Metzger M.D. 12/20/2020 6:57 AM Dictated: 12/20/20 0656Transcribed: 12/20/20 0656 mpression #5: Lytic destructive lesion of the left ninth rib suggestive of osseous metastasis. Electronically signed by: Oumar Metzger M.D. 12/20/2020 8:48 AM ADDENDUM END ABDOMEN AND PELVIS CT WITHOUT CONTRAST CT DOSE: 962.12 mGy.cm HISTORY: Acute generalized abdominal pain with fever abd pain TECHNIQUE: Multiaxial CT images of the abdomen and pelvis were performed without contrast. A dose lowering technique was utilized adhering to the principles of ALARA. COMPARISON STUDY: Chest CT of same day, CT abdomen and pelvis 01/24/2020 FINDINGS: Trace left pleural effusion. Minimal tree-in-bud nodules of the left lung base. No pneumatosis or pneumoperitoneum. The imaged inferior cardiac chambers are unremarkable. The unenhanced spleen, visualized pancreas, adrenal glands and liver are unremarkable. Cholecystectomy. Punctate nonobstructing calculus of the inferior pole left kidney. Kidneys are otherwise unremarkable. No ureteral calculi or hydronephrosis. Moderate distention of the urinary bladder. Mild prostamegaly. No abdominal aortic aneurysm. There are a few scattered mildly prominent para- aortic lymph nodes. Mild wall thickening of the distal esophagus. Gastric stimulator device is noted with leads overlying the distal stomach. Battery pack is present within the left paracentral mid to lower anterior abdomen. No bowel obstruction or bowel wall thickening. The appendix measures up to 9 mm transversely which is similar to comparison and does not appear to be inflamed. Scarring of the subcutaneous right anterior abdomen. There is no acute fracture. Degenerative changes of the spine. Trace fluid of the right pericolic gutter. Mild generalized body wall and mesenteric edema, similar to comparison. IMPRESSION: 1. Punctate left renal calculus. No ureteral calculi or hydronephrosis. 2. Urinary bladder distention. 3. No bowel obstruction or bowel wall thickening. 4. Chronic findings as above. ACT 112: Negative or not required by law. The above report was generated using voice recognition software. It may contain grammatical, syntax or spelling errors. Electronically signed by: Oumar Metzger M.D. 12/20/2020 7:42 AM Dictated: 12/20/2035Transcribed: 12/20/2035 CT chest diagnostic wo con CT DOSE: 265.27 mGy.cm CLINICAL HISTORY: 55 years-old Male with SOB. Hx lung resection. Acute shortness of breath with fever. History of prior left upper lobectomy. TECHNIQUE: Multiaxial CT images of the chest were performed without contrast. A dose lowering technique was utilized adhering to the principles of ALARA. COMPARISON: CT abdomen and pelvis of same day, chest CT 01/25/2020 FINDINGS: Unchanged 9 mm hypodense right thyroid nodule. There is no adenopathy. The heart is normal in size without pericardial effusion. Moderate coronary artery calcifications. No thoracic aortic aneurysm. Trace left pleural effusion. Postoperative changes of prior left upper lobectomy. Mild groundglass opacities within the left midlung on image 147 are new from comparison. Additionally, there are subtle tree-in-bud nodules of the posterior basal segment left lower lobe. Resolution of the previously described right lung groundglass densities. There are no suspicious pulmonary nodules identified. There are a few punctate granulomata present. Central airways are patent. No acute process of the imaged upper abdomen. Gastric stimulator device. Cholecystectomy. Mild generalized body wall edema. There is a destructive lytic lesion involving the lateral left ninth rib with adjacent soft tissue component. IMPRESSION: 1. Postoperative changes of prior left upper lobectomy 2. Mild groundglass densities with tree-in-bud nodules of the left lower lobe are suggestive of an infectious or inflammatory pneumonitis with bronchiolitis. This finding was called/faxed to the emergency department at time of dictation. 3. Lytic destructive lesion of the left ninth rib is suggestive of osseous metastatic disease. This finding was called/faxed to the emergency department at time of dictation. ACT 112: Negative or not required by law. Electronically signed by: Oumar Metzger M.D. 12/20/2020 8:51 AM Dictated: 12/20/20 0837Transcribed: 12/20/20 0847 Hospital Course (1) SOB (shortness of breath): Toxic metabolic encephalopathy Acute respiratory failure - last night patient was code purple, unresponsive, received Narcan, then became more awake and alert Respiratory failure, ABG obtained, pH showed acidosis Patient also obtained a half amp of bicarb overnight 12/23 - morning patient feeling much better, more awake breathing without difficulty however using supplemental oxygen (2L) 12/24 -Per nursing staff, noted patient more shaky contractures of hands, obtained CT head, negative Neurology also consulted History of seizure, Keppra dose reduced, this was discussed with pharmacy given renal function, Keppra level ordered - pending Vitamin B1 and B12 levels ordered B12 level normal (however patient also been on multivitamin since admission here) EEG obtained (12/26) MRI brain was ordered however patient has a gastric pacemaker that is not compatible with MRI Increased somnolence, hx of seizures 12/21 -Per nursing staff, patient was doing well earlier that day, however in the afternoon became extremely somnolent Nursing staff concerned about misuse of opiates, checked patient's bag, found his home oxycodone (these were now taken by the staff) Patient also had several hypoglycemic episodes, glycemic pharmacy on board Patient is able to answer questions appropriately however somnolent Likely secondary to opiate use and gabapentin use especially now with IVAN on CKD Hold gabapentin, oxycodone decreased from 10 mg to 5 mg, only give as needed Continue closely monitor respiratory and hemodynamic status Discussed with nephrology, resume gabapentin at lower dose at 100 TID Blood culture - negative, UA - negative CXR - Patchy airspace opacities within the right and left lungs which could represent multifocal pneumonia or related to aspiration. Diffuse prominence of pulmonary interstitium might be seen in infectious/inflammatory process or in pulmonary edema. Pt on clinda + dapto (12/24) Wound culture shows MSSA, antibiotic switched from Dapto to ceftriaxone (12/26) CT head repeated - negative Neurology also consulted -plan to resume Keppra at 750 twice daily once renal function improves Vitamin B1 and B12 levels ordered (however patient has been on multivitamins since his admission here) 12/25 - most awake and aware, able to have conversation and follow commands, however now reports pain all over, chronic EEG obtained (12/26) - This EEG appears to show a generalized moderate encephalopathy of nonspecific type without associated epileptiform discharges or lateralizing features Will consult pain management for narcotic management L ring finger wound/ulcer -Noted left ring finger ulcer by nursing staff ESR and CRP elevated, procalcitonin elevated Not clear if procalcitonin is elevated from his respiratory/unresponsive episode Patient started on clindamycin after his code purple, added Dapto for now Obtained wound culture - Staph species, MSSA Antibiotics switched from Dapto to ceftriaxone (12/26) Obtained x-ray of left hand (unable to obtain imaging with contrast due to renal failure, patient would not be able to have MRI due to lack of cooperation) Pt cannot have MRI due to gastric pacemaker Wound nurse and orthopedics consulted 12/25 -patient more awake and cooperative, will try to reimage the left hand 12/26 -obtained CT of left hand, patient unable to obtain MRI due to gastric pacer CT - No fractures or osteomyelitis identified within the left hand. Wound care and orthopedics evals -continue wound care, Aquacel AG dressings to be changed daily, no evidence of osteomyelitis, likely follow-up with orthopedics as outpatient Initial concern for poss. PE (on admission) - ruled out Rule out PE given abnormal D-dimer and malignancy history VQ scan, LE Dopplers obtained for PE work-up Both negative therefore IV heparin was stopped Since admission breathing on room air, denies any shortness of breath (after code purple, unresponsive episode - seems d/t opioid use?, resp. failure, on 2L of O2) 12/25 back on RA, breathing w/o difficulty Hypertension elevated on admission secondary to illness BP on 12/21 - on lower side, instructed nurse to take off clonidine patch, and will give small bolus of normal saline 12/22 - BP continues to be on lower side - hold amlodipine, hold clonidine, continue IV fluids, continue to closely monitor 12/24 -blood pressure now again increased, resume amlodipine stop IV fluids, continue to closely monitor Also can be due to opioid withdrawal now,12/25 - patient awake alert, and complaining of chronic pain 12/27 -patient denies any pain currently, however blood pressure elevated despite resuming home medications, amlodipine and clonidine Abdominal pain nausea vomiting diarrhea - POA, now resolved History gastroparesis status post gastric pacemaker Possible opioid withdrawal, history chronic pain on narcotics prior history confinement for opiate withdrawal secondary to running out of narcotic medications Rule out C. difficile, c. diff ordered - patient had no BM Judicious narcotic use, suspect possible misuse (As per conversation with ER medication inbound ingredient logistics specialist, patient not forthcoming about information regarding his Fentanyl patch being switched to Morphine Sulfate ER twice daily by PCP last month due to Fentanyl cost issues.) Urinary retention 12/22 -patient reports pain with urination, and suprapubic tenderness UA on admission unremarkable, will repeat UA Creatinine also elevated bladder distended noted on CT on admission obtained bladder scan, Placed Peace IVAN on CKD 3 secondary to illness Baseline UA, monitor creatinine response to IV fluids UA on 12/20 -unremarkable Cr on 12/21 - Cr 2.4 (on admission 12/20 Cr 2.2) Cr 3 on 12/22 -also bladder distended on CT on admission we will repeat UA, will obtain bladder scan and possibly straight cathed/Place Peace as may be ob structive in nature 12/22 - Straight cath for 1250 mL, Peace catheter placed, repeat UA negative Nephrology following 12/25 Cr improved to 2.4 12/26 -creatinine still elevated, IVAN not resolved DM1 - suboptimal control as of recent outpatient hemoglobin A1c of 11.6 % June 2020 current Hgb A1c 11.4% - Basal insulin adjusted for clear liquid diet for now, ISS BG goal 110-140, update hemoglobin A1c NSCLC stage III, status post surgery, incomplete chemotherapy secondary to intolerance -stable disease as per last oncology note from last month Follows with Dr. 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 Plan to restart Keppra at 750 twice daily as previously, pending improving renal function Chronic anemia, hemoglobin at baseline Past tobacco abuse DVT prophylaxis. Heparin Full code Total Time Total Time Spent Total Time Spent (In Minutes): 40 minutes Discharge Plan Discharge Items Patient Disposition: Transfer Inpatient Rehab Fac Reason For Visit: SOB Discharge Diagnosis: Toxic metabolic encephalopathy Acute respiratory failure Increased somnolence Hx of seizures Left ring finger wound/ulcer Hypertension Urinary retention IVAN on CKD Diabetes type 1 NSCLC stage III Chronic anemia Activity: Resume your previous activity Non-emergency contact: Primary Care Provider Call non-emergency contact if: you have any medication questions Follow-up/Referrals: Lionel Lutz DO [Primary Care Provider] - ( Date & Time 01/04/2021 3:30 PM Provider Juan Davis MD [facility] ) Diet: Carb Count or DM1 Addtl Attending Provider Instructions: Follow up with your primary care provider once discharge from [facility] Follow up with neurology dr. Yeboah or her colleagues in 3 to4 weeks [facility] for the finger ulcer Continue physical and occupational therapy Follow up with orthopedic in 2 to 3 weeks Check Keppra level in 2 weeks Check BMP and magnesium level in 1 week to monitor your electrolytes and renal function If renal function declines, consider renal dose adjustment in his medication Check Blood pressure standing due to autonomic neuropathy to assess for postural hypotension ( try to keep standing systolic higher than 110 and Supine systolic less than 180) Complete the course of the antibiotic Please hold next dose of narcotic if you develop any lethargy or drowsiness Continue monitor your blood sugar and limiting concentrated sweet intake Continue Fall and seizure precaution Pending Studies at Discharge: No Stand-Alone Forms: My [email or web address], Smoking Cessation Skilled Items Patient informed of condition?: Yes DNR: No Discharge Level of Care: Acute rehab Communicable Disease: No Discharge Prognosis: Stable Lines: None Urinary Catheter: No Medications and DC Order Prescriptions: New gabapentin 100 mg Capsule 100 mg PO TID Qty: 30 RF: 0 cephalexin 500 mg capsule 500 mg PO BID 10 Days Qty: 20 RF: 0 morphine [MS Contin] 30 mg tablet extended release 30 mg PO Q12H Qty: 10 RF: 0 oxycodone 5 mg Tablet 5 mg PO Q4H PRN (Reason: severe pain) Qty: 10 RF: 0 magnesium oxide 400 mg (241.3 mg magnesium) Tablet 400 mg PO BID Qty: 30 RF: 0 Advanced Probiotic 625 mg (10 billion cell) Capsule 2 cap PO DAILY Qty: 30 RF: 0 Continued clonidine 0.2 mg/24 hr patch weekly 1 patch transdermal WK RF: 0 Wixela Inhub 250-50 mcg/dose Blister With Device 1 inh INHALATION BID RF: 0 Lexapro 10 mg Tablet 10 mg PO DAILY RF: 0 Norvasc 5 mg Tablet 5 mg PO QAM Qty: 30 RF: 0 Keppra 750 mg tablet 750 mg PO BID 30 Days Qty: 60 RF: 1 multivitamin Tablet 1 tab PO QAM RF: 0 pantoprazole 40 mg tablet,delayed release (DR/EC) 40 mg PO QAM RF: 0 EpiPen 0.3 mg/0.3 mL Auto-Injector 0.3 mg IM Q3H PRN (Reason: Allergic Reaction) RF: 0 albuterol sulfate 90 mcg/actuation Hfa Aerosol Inhaler 2 puff INHALATION Q4H PRN (Reason: Shortness Of Breath) RF: 0 Humalog U-100 Insulin 100 unit/mL Cartridge 1 sliding scale dose SUBCUT UD RF: 0 Basagljahaira IrwinPen U-100 Insulin 100 unit/mL (3 mL) Insulin Pen 7 unit SUBCUT HS RF: 0 ondansetron 8 mg Tablet,Disintegrating 8 mg PO Q8H PRN (Reason: Nausea) RF: 0 cyclobenzaprine 5 mg Tablet 5 mg PO TID PRN (Reason: Muscle Spasm) RF: 0 Discontinued gabapentin 300 mg Capsule 300 mg PO TID RF: 0 oxycodone 10 mg Tablet 10 mg PO Q4H PRN (Reason: Pain) RF: 0 MorphaBond ER 60 mg PO BID RF: 0 Discharge Orders: Discharge Order (Routine); Ordered 12/29/20 Ordered By: Shira Pavon Admission Data Admit Date/Time: 12/21/20 19:50 Attending Provider: Shira Pavon Admit Provider: Darian Chinchilla Primary Care Provider: Lionel Lutz V. Other Providers: [facility] ; Norma Lord ; Darian Chinchilla ; Nidia Yeboah ; Mauricio Gomez ; Chepe Redmond ; Alban Chandra ; Alessandra Wilson ; Fredy Wiggins ; Ally Vegas ; Neville Friend ; Lester Kraft ; Fuad Phillip Andrew J. ; Lester Granados ; Bunny Gardner ; Ash Kothari ; Mukul Rust ; Sukhi Nguyen ; Ally Linn ; Christian Cotto ; Dave Levi ; Nessa Huerta ; Rodo Summers ; Chelo Zamora ; Lorne Segal ; Henry Hope Other Interventions: Discharge Summary Assessment (RN) Last Done: 12/29/20 17:21
[2020-12-29 17:23] VITALS: BP 120/71; PULSE 57
[2020-12-29] MEDS ORDERED: INSULIN GLARGINE SOLOSTAR 100 UNITS/ML 3 ML PEN SC SCH (21:00)
== END 2020-12-29 18:26 | DRG 896 ==
LOC: ED 23:52 → 2W 23:52 → SUATTDRO 12-20 07:20 → 2W 12-20 08:58 → SUATTDRO 12-21 19:50 → 2S 12-23 02:07
DX: Y92.89 Other specified places as the place of occurrence of the external cause; G89.29 Other chronic pain; B95.61 Methicillin susceptible Staphylococcus aureus infection as the cause of diseases classified elsewhere; Z83.3 Family history of diabetes mellitus; Z90.2 Acquired absence of lung [part of]; Z91.14 Patient's other noncompliance with medication regimen; J96.00 Acute respiratory failure, unspecified whether with hypoxia or hypercapnia; Z96.89 Presence of other specified functional implants; Z80.1 Family history of malignant neoplasm of trachea, bronchus and lung; S61.205A Unspecified open wound of left ring finger without damage to nail, initial encounter; F11.23 Opioid dependence with withdrawal; Z88.0 Allergy status to penicillin; Z87.891 Personal history of nicotine dependence; Z79.891 Long term (current) use of opiate analgesic; G92 Toxic encephalopathy; N17.9 Acute kidney failure, unspecified; C34.90 Malignant neoplasm of unspecified part of unspecified bronchus or lung; L98.499 Non-pressure chronic ulcer of skin of other sites with unspecified severity; I12.9 Hypertensive chronic kidney disease with stage 1 through stage 4 chronic kidney disease, or unspecified chronic kidney disease; J44.9 Chronic obstructive pulmonary disease, unspecified; R33.9 Retention of urine, unspecified; Z96.659 Presence of unspecified artificial knee joint; N18.4 Chronic kidney disease, stage 4 (severe); E10.649 Type 1 diabetes mellitus with hypoglycemia without coma; G40.909 Epilepsy, unspecified, not intractable, without status epilepticus; L08.9 Local infection of the skin and subcutaneous tissue, unspecified; E10.43 Type 1 diabetes mellitus with diabetic autonomic (poly)neuropathy; T40.605A Adverse effect of unspecified narcotics, initial encounter; R40.0 Somnolence; E87.2 Acidosis; X58.XXXA Exposure to other specified factors, initial encounter; Z97.8 Presence of other specified devices

== ENCOUNTER 2021-01-06 23:43 | Inpatient (IN) ==
[2021-01-07] MEDS ORDERED: ONDANSETRON INJ 2 MG/ML 2 ML VIAL IV STA (00:53)
[2021-01-07] MEDS ORDERED: SODIUM CHLORIDE 0.9% 1000ML 500 ML IV ONE (00:53)
[2021-01-07 01:10] LABS: Basophils # (auto) 0.02 K/uL (0-0.2); Basophils % (auto) 0.2 %; Eosinophils # (auto) 0.01 K/uL (0-0.5); Eosinophils % (auto) 0.1 %; Hematocrit (blood only) 32.3 % (42-52); Hemoglobin 10.9 g/dL (14.0-18.0); Immature Granulocytes # (auto) 0.02 K/uL (0.00-0.02); Immature Granulocytes % (auto) 0.2 %; Lymphocytes # (auto) 0.78 K/uL (1.2-3.4); Lymphocytes % (auto) 7.2 %; Mean Corpuscular Hemoglobin 29.7 pg (25-34); Mean Corpuscular Hgb Conc 33.7 g/dL (32-36); Mean Platelet Volume 9.9 fL (7.4-10.4); Monocytes # (auto) 0.78 K/uL (0.11-0.59); Monocytes % (auto) 7.2 %; Neutrophils # (auto) 9.16 K/uL (1.4-6.5); Neutrophils % (auto) 85.1 %; Platelet Count 396 K/uL (130-400); RDW Coefficient of Variation 13.4 % (11.5-14.5); RDW Standard Deviation 43.4 fL (36.4-46.3); Red Blood Count 3.67 M/uL (4.7-6.1); White Blood Count 10.77 K/uL (4.8-10.8)
[2021-01-07 01:27] LABS: Albumin Level 2.8 gm/dl (3.4-5.0); BUN Creatinine Ratio 12.2 (10-20); Calcium 9.1 mg/dl (8.5-10.1); Creatinine Clr Calc Pharmacy 29.3 ml/min; Est GFR (African American) 29.6 ml/min; Est GFR (Non-African American) 25.5 ml/min; Potassium 4.3 mmol/L (3.5-5.1)
[2021-01-07 01:30] LABS: Albumin Globulin Ratio 0.6 (0.9-2); Bilirubin,Total 0.5 mg/dl (0.2-1); Total Protein 7.8 gm/dl (6.4-8.2)
[2021-01-07] MEDS ORDERED: hydrALAZINE HCL 20 MG/ML VIAL IV STA (02:01)
--- NOTE | 2021-01-07 02:40 | Emergency Department Note ---
Impression & Plan Hypertension, Nausea & vomiting Admit to the [facility] ED Provider Note NAME: NIKHIL MARTINS AGE: 55 SEX: M ARRIVES VIA: Walk-In INFORMANT: Patient ED PROVIDER(S): Monique Coles DO CHIEF COMPLAINT: Nausea and vomiting PLAN: Disposition: Admit to the [facility] Condition: Guarded MEDICAL DECISION MAKING: This is a 55-year-old male patient with an extensive past medical history who presents to the emergency department with nausea and vomiting for the past 2 days. The patient was just discharged from the hospital earlier this week. He states that the vomiting started a couple of days ago and that the Zofran is not working. The patient was staying with his sister not far from this hospital and he drove himself here. Upon arrival here in the ER, the patient's blood pressure was out of control. He received 2 doses of IV hydralazine and IV Lopressor but his blood pressure remains high even when he was sound asleep. I tried using IV Ativan as an antiemetic as well as for blood pressure management but the blood pressure remained significantly elevated. The patient continued to dry heave here in the ER but was not producing emesis. Triage Nursing notes reviewed and agree with them. Prior medical records reviewed Vital Signs: reviewed and remarkable for hypertension Differential diagnosis: Hypertensive crisis, dehydration, opioid withdrawal electrolyte abnormality, anxiety, ER treatment provided: IV Zofran, IV hydralazine, IV Ativan IV Lopressor Diagnostics interpreted by me: Cardiac Monitoring: Sinus tachycardia at 102 Laboratory studies: See below HPI: 55/M arrives for evaluation of nausea/vomiting. The patient was discharged in the hospital earlier this week and had been feeling better but began to feel increasingly nauseated and the vomiting started again. He states that the Zofran is no longer working for him. Patient states that he finds it difficult to breathe at times and he has since developed some diarrhea. ROS: See above HPI for pertinent positives & negatives. A total of 10 systems reviewed and were otherwise negative. PAST MEDICAL HISTORY:See Below PAST SURGICAL HISTORY:See Below FAMILY HISTORY:See Below SOCIAL HISTORY:See Below HOME MEDICATIONS:See Below ALLERGIES:See Below VITALS:See Below PHYSICAL EXAMINATION: HEENT: Head - normocephalic and atraumatic Pupils are equal, round, and reac tive to light. Extraocular eye muscles are intact, and sclera are anicteric. Nose - moist nasal mucosa without discharge. Mouth - moist buccal mucosa. Oropharynx is nonerythematous and there is no tonsillar exudate or edema noted. Neck: Supple; no JVD, nuchal rigidity, cervical lymphadenopathy, or auscultated bruits. Heart: Tachycardic rate and regular rhythm. There is a normal S1 and S2 with no murmurs, clicks, or gallops appreciated. Lungs: Clear to auscultation bilaterally with no wheezes, rales, or rhonchi. Abdomen: Soft, diffusely tender, nondistended, with good bowel sounds. There are no palpable pulsatile masses or hepatosplenomegaly. There is no guarding, rigidity, or rebound noted. Extremities: No evidence of cyanosis, clubbing, or edema. There are easily palpable peripheral pulses. Skin: warm and dry with good turgor and no rashes. ED COURSE: Times/Reassessments: 0025: The patient was evaluated in room A 10. A complete history and physical was performed. Previous electronic medical records were reviewed. An order was placed for continuous cardiac monitoring. The patient was in a sinus tachycardia at 102 Patient was given 4 mg of IV Zofran for nausea. His blood pressure remained significantly elevated so he was given 10 mg of IV hydralazine. Upon repeat evaluation, the blood pressure remained high. At that point he was given a dose of IV Ativan for a second line antiemetic and blood pressure control. This did not seem to help at all with the blood pressure so therefore the patient was given 5 mg of IV Lopressor. Upon repeat evaluation, the patient's blood pressure still remains high even while he is sleeping. [facility] for [facility] management. 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 One 1 mm polyp in the ascending colon resected. One benign appearing 1 mm polyp in the rectum resected. Internal hemorrhoids; Dr. Demarco" H/O esophagogastroduodenoscopy "01/26/2015- LA Grade B reflux esophagitis, gastritis; Dr. Major" History of cholecystectomy History of tonsillectomy and adenoidectomy Hx of total knee arthroplasty S/P lobectomy of lung "left upper lobectomy for adenoCa" On 08/05/16 16:30 Edie Mcfarland wrote "L side @ [facility] 05/25/16" Status post insertion of intrathecal pump explanted Family History Other Family history non-contributory Social History Smoking Status: Former smoker Tobacco Type: Cigarettes Second Hand Exposure: No; Hx Alcohol Use: No Hx Substance Use: Yes Last Used Substance: Just Prior to Arrival Last Used Substance Other:: Four hours ago Substance Use Type Other:: fentanyl patch 24hrs a day-refused removal of 2 patches Preferred Language: Bel[place]an Communication Ability: Effective Dry Cell Assembly Supervisor Required: No Beliefs That Will Affect Care: Sikhism Sikhism Beliefs: Hindu marital status: Single Current Living Situation: Alone Other Information That Helps Us Care for You: No Feels Safe at Home: Yes Assistive Devices: Cane Allergies Allergies Allergy/AdvReac Type Severity Reaction Status Date / Time bee venom protein (honey bee) Allergy Mild SWELLING Verified 01/07/21 02:34 AT SITE, SOB Penicillins Allergy Unknown "SINCE Verified 01/07/21 02:34 "-Amoxicillin cat dander Allergy Unknown Verified 01/07/21 02:34 Home Meds Home Medications Medication Instructions Recorded Confirmed albuterol sulfate 90 mcg/actuation 2 puff INHALATION Q4H PRN 05/05/18 01/07/21 aerosol inhaler epinephrine 0.3 mg/0.3 mL 0.3 mg IM Q3H PRN 05/05/18 01/07/21 injection, auto-injector (EpiPen) insulin glargine 100 unit/mL (3 7 unit SUBCUT HS 05/05/18 01/07/21 mL) subcutaneous pen (Basaglar KwikPen U-100 Insulin) insulin lispro 100 unit/mL 1 sliding scale dose SUBCUT UD 05/05/18 01/07/21 subcutaneous cartridge (Humalog U-100 Insulin) multivitamin 1 tab PO QAM 05/05/18 01/07/21 pantoprazole 40 mg tablet,delayed 40 mg PO QAM 05/05/18 01/07/21 release clonidine 0.2 mg/24 hr weekly 1 patch TRANSDERMAL WK 01/23/20 01/07/21 transdermal patch escitalopram oxalate 10 mg tablet 10 mg PO DAILY 01/24/20 01/07/21 (Lexapro) fluticasone 250 mcg-salmeterol 50 1 inh INHALATION BID 01/24/20 01/07/21 mcg/dose blistr powdr for inhalation (Wixela Inhub) cyclobenzaprine 5 mg tablet 5 mg PO TID PRN 12/20/20 01/07/21 ondansetron 8 mg disintegrating 8 mg PO Q8H PRN 12/20/20 01/07/21 tablet Previous Rx's Medication Instructions Recorded amlodipine 5 mg tablet (Norvasc) 5 mg PO QAM #30 tab 01/29/20 levetiracetam 750 mg tablet 750 mg PO BID 30 Days #60 tab 01/29/20 (Keppra) L.acidop,casei,lactis,rham-B.lact,jose 2 cap PO DAILY #30 cap 12/29/20 625 mg (10 billion cell) capsule (Advanced Probiotic) cephalexin 500 mg capsule 500 mg PO BID 10 Days #20 cap 12/29/20 gabapentin 100 mg capsule 100 mg PO TID #30 cap 12/29/20 magnesium oxide 400 mg (241.3 mg 400 mg PO BID #30 tab 12/29/20 magnesium) tablet morphine 30 mg tablet,extended 30 mg PO Q12H #10 tab 12/29/20 release (MS Contin) oxycodone 5 mg tablet 5 mg PO Q4H PRN #10 tab 12/29/20 Results & Data (ED) Vital Signs Vital Signs - 24 hr 01/06/21 23:47 01/07/21 00:50 01/07/21 01:00 Temperature 36.7 C Temperature Source Temporal Artery Scan Pulse Rate 103 H 95 H 94 H Pulse Rate [Radial] Pulse Rate from SpO2 Sensor 96 H Respiratory Rate 18 19 19 Respiratory Depth Shallow Blood Pressure 173/104 H Blood Pressure [Left Arm] Blood Pressure Mean 127 Blood Pressure Mean [Left Arm] Pulse Oximetry 100 92 Oxygen Delivery Method Room Air Sepsis Recent Fever Within 48 Hours No Sepsis New/Unexplained Change in Mental Status No Sepsis Action Taken by Nursing No Action Required 01/07/21 01:11 01/07/21 01:33 01/07/21 02:00 Temperature Temperature Source Pulse Rate 101 H 100 H Pulse Rate [Radial] 102 H Pulse Rate from SpO2 Sensor 99 H Respiratory Rate 16 18 Respiratory Depth Blood Pressure 221/132 H Blood Pressure [Left Arm] 213/117 H 234/136 H Blood Pressure Mean 161 Blood Pressure Mean [Left Arm] 149 168 Pulse Oximetry 96 90 Oxygen Delivery Method Room Air Sepsis Recent Fever Within 48 Hours Sepsis New/Unexplained Change in Mental Status Sepsis Action Taken by Nursing 01/07/21 02:28 01/07/21 03:01 01/07/21 03:37 Temperature Temperature Source Pulse Rate 108 H Pulse Rate [Radial] 94 H Pulse Rate from SpO2 Sensor Respiratory Rate 16 18 Respiratory Depth Blood Pressure 206/110 H 192/121 H Blood Pressure [Left Arm] 199/113 H Blood Pressure Mean 142 144 Blood Pressure Mean [Left Arm] 141 Pulse Oximetry 100 100 Oxygen Delivery Method Room Air Room Air Sepsis Recent Fever Within 48 Hours Sepsis New/Unexplained Change in Mental Status Sepsis Action Taken by Nursing Laboratory Data Result diagrams: 01/07/21 06:48 01/07/21 06:48 Lab Results 01/07/21 01/07/21 01/07/21 Range/Units 00:31 01:02 01:02 WBC 10.77 (4.8-10.8) K/uL RBC 3.67 L (4.7-6.1) M/uL Hgb 10.9 L (14.0-18.0) g/dL Hct 32.3 L (42-52) % MCV 88.0 (80-100) fL MCH 29.7 (25-34) pg MCHC 33.7 (32-36) g/dL RDW Std Deviation 43.4 (36.4-46.3) fL RDW Coeff of Rik 13.4 (11.5-14.5) % Plt Count 396 (130-400) K/uL MPV 9.9 (7.4-10.4) fL Immature Gran % (Auto) 0.2 % Neut % (Auto) 85.1 % Lymph % (Auto) 7.2 % [place] % (Auto) 7.2 % Eos % (Auto) 0.1 % Baso % (Auto) 0.2 % Neut # (Auto) 9.16 H (1.4-6.5) K/uL Lymph # (Auto) 0.78 L (1.2-3.4) K/uL [place] # (Auto) 0.78 H (0.11-0.59) K/uL Eos # (Auto) 0.01 (0-0.5) K/uL Baso # (Auto) 0.02 (0-0.2) K/uL Immature Gran # (Auto) 0.02 (0.00-0.02) K/uL Sodium 137 (136-145) mmol/L Potassium 4.3 (3.5-5.1) mmol/L Chloride 104 (98-107) mmol/L Carbon Dioxide 24 (21-32) mmol/L Anion Gap 9.0 (3-11) BUN 33 H (7-18) mg/dl Creatinine 2.69 H (0.6-1.4) mg/dl Est Cr Clr Drug Dosing 29.3 ml/min Est GFR ( Amer) 29.6 ml/min Est GFR (Non-Af Amer) 25.5 ml/min BUN/Creatinine Ratio 12.2 (10-20) Glucose 298 H (70-99) mg/dl POC Glucose 308 H* (70-99) mg/dl Calcium 9.1 (8.5-10.1) mg/dl Total Bilirubin 0.5 (0.2-1) mg/dl AST 14 L (15-37) U/L ALT 17 (12-78) U/L Alkaline Phosphatase 110 (45-117) U/L Total Protein 7.8 (6.4-8.2) gm/dl Albumin 2.8 L (3.4-5.0) gm/dl Globulin 5.0 H (2.5-4.0) gm/dl Albumin/Globulin Ratio 0.6 L (0.9-2) Lipase 48 L (73-393) U/L COVID-19 Eval Order SARS-CoV-2 (PCR) (Negative) 01/07/21 01/07/21 Range/Units 03:02 03:02 WBC (4.8-10.8) K/uL RBC (4.7-6.1) M/uL Hgb (14.0-18.0) g/dL Hct (42-52) % MCV (80-100) fL MCH (25-34) pg MCHC (32-36) g/dL RDW Std Deviation (36.4-46.3) fL RDW Coeff of Rik (11.5-14.5) % Plt Count (130-400) K/uL MPV (7.4-10.4) fL Immature Gran % (Auto) % Neut % (Auto) % Lymph % (Auto) % [place] % (Auto) % Eos % (Auto) % Baso % (Auto) % Neut # (Auto) (1.4-6.5) K/uL Lymph # (Auto) (1.2-3.4) K/uL [place] # (Auto) (0.11-0.59) K/uL Eos # (Auto) (0-0.5) K/uL Baso # (Auto) (0-0.2) K/uL Immature Gran # (Auto) (0.00-0.02) K/uL Sodium (136-145) mmol/L Potassium (3.5-5.1) mmol/L Chloride (98-107) mmol/L Carbon Dioxide (21-32) mmol/L Anion Gap (3-11) BUN (7-18) mg/dl Creatinine (0.6-1.4) mg/dl Est Cr Clr Drug Dosing ml/min Est GFR ( Amer) ml/min Est GFR (Non-Af Amer) ml/min BUN/Creatinine Ratio (10-20) Glucose (70-99) mg/dl POC Glucose (70-99) mg/dl Calcium (8.5-10.1) mg/dl Total Bilirubin (0.2-1) mg/dl AST (15-37) U/L ALT (12-78) U/L Alkaline Phosphatase (45-117) U/L Total Protein (6.4-8.2) gm/dl Albumin (3.4-5.0) gm/dl Globulin (2.5-4.0) gm/dl Albumin/Globulin Ratio (0.9-2) Lipase (73-393) U/L COVID-19 Eval Order Covid19 at [facility] SARS-CoV-2 (PCR) NEGATIVE (Negative) Administered Medications Acetaminophen (Acetaminophen 325 Mg Tab) 650 mg PO Q4H PRN PRN Reason: Pain or Fever Stop: 02/06/21 06:18 Last Admin: 01/07/21 12:09 Dose: 650 mg Documented by: [id number] Amlodipine Besylate (Amlodipine Besylate 5 Mg Tab) 5 mg PO QAM [facility] Stop: 02/06/21 08:59 Last Admin: 01/07/21 09:54 Dose: Not Given Documented by: [id number] Clonidine HCl (Clonidine Hcl 0.2 Mg/24 Hr Transderm Sys) 1 patch TD Sa@0900 [facility] Stop: 02/06/21 08:59 Last Admin: 01/07/21 09:57 Dose: 1 patch Documented by: [id number] Escitalopram Oxalate (Escitalopram Oxalate 10 Mg Tab) 10 mg PO DAILY [facility] Stop: 02/06/21 08:59 Last Admin: 01/07/21 09:54 Dose: Not Given Documented by: [id number] Fluticasone/Vilanterol (Fluticasone/Vilanterol 100/25mcg 14 Puffs/Inhaler) 1 puffs INH DAILY [facility]; Protocol Stop: 02/06/21 08:59 Last Admin: 01/07/21 09:41 Dose: 1 puffs Documented by: [id number] Gabapentin (Gabapentin 100 Mg Cap) 100 mg PO TID [facility] Stop: 02/06/21 08:59 Last Admin: 01/07/21 21:54 Dose: 100 mg Documented by: [id number] Admin: 01/07/21 15:04 Dose: 100 mg Documented by: [id number] Admin: 01/07/21 09:55 Dose: Not Given Documented by: [id number] Heparin Sodium (Porcine) (Heparin Sod 5,000 Unit/0.5 Ml Vial) 5,000 units SQ Q8 [facility] Stop: 02/06/21 06:59 Last Admin: 01/07/21 21:56 Dose: 5,000 units Documented by: [id number] Admin: 01/07/21 15:07 Dose: 5,000 units Documented by: [id number] Admin: 01/07/21 09:41 Dose: 5,000 units Documented by: [id number] Sodium Chloride (Nss 1000ml) 1,000 mls @ 75 mls/hr IV .[id number] [facility] Stop: 02/06/21 06:18 Last Admin: 01/07/21 21:52 Dose: 75 mls/hr Documented by: [id number] Infusion: 01/07/21 21:52 Dose: 75 mls/hr Documented by: [id number] Infusion: 01/07/21 15:06 Dose: 75 mls/hr Documented by: [id number] Infusion: 01/07/21 10:08 Dose: 0 mls/hr Documented by: [id number] Admin: 01/07/21 09:31 Dose: 75 mls/hr Documented by: [id number] Ertapenem 500 mg/ Sodium (Chloride) 55 mls @ 110 mls/hr IV DAILY [facility]; Protocol Stop: 01/17/21 08:59 Last Infusion: 01/07/21 10:40 Dose: 0 mls/hr Documented by: [id number] Admin: 01/07/21 10:08 Dose: 110 mls/hr Documented by: [id number] Pantoprazole Sodium 40 mg/ (Syringe) 10 mls @ 5 mls/min IV BID ADM[facility] Stop: 02/06/21 08:59 Last Admin: 01/07/21 10:00 Dose: 5 mls/min Documented by: [id number] Insulin Human Regular (Insulin Human Regular) 0 units SC Q6 DAM[facility]; Protocol Stop: 02/06/21 07:59 Last Admin: 01/07/21 17:41 Dose: 2 units Documented by: [id number] Cosigned by: [id number] Admin: 01/07/21 13:07 Dose: 3 units Documented by: [id number] Cosigned by: [id number] Admin: 01/07/21 09:44 Dose: 3 units Documented by: [id number] Cosigned by: [id number] Lactobacillus Acidoph/Casei/Rhamnos (Advanced Probiotic 1250 Mg Capsule) 2 cap PO DAILY [facility] Stop: 02/06/21 08:59 Last Admin: 01/07/21 09:55 Dose: Not Given Documented by: [id number] Levetiracetam (Levetiracetam 250 Mg Tab) 750 mg PO BID [facility] Stop: 02/06/21 08:59 Last Admin: 01/07/21 21:54 Dose: 750 mg Documented by: [id number] Admin: 01/07/21 09:56 Dose: Not Given Documented by: [id number] Magnesium Oxide (Magnesium Oxide 400 Mg Tab) 400 mg PO BID [facility] Stop: 02/06/21 08:59 Last Admin: 01/07/21 21:55 Dose: 400 mg Documented by: [id number] Admin: 01/07/21 09:56 Dose: Not Given Documented by: [id number] Metoclopramide HCl (Metoclopramide Hcl Inj 5 Mg/Ml 2 Ml Vial) 10 mg IV Q8H [facility] Stop: 02/06/21 16:44 Last Admin: 01/07/21 17:46 Dose: 10 mg Documented by: [id number] Miscellaneous (Remove Clonidine Patch) 1 ea N/A CQWK [facility] Stop: 02/06/21 08:58 Last Admin: 01/07/21 09:46 Dose: 1 ea Documented by: [id number] Miscellaneous (Check Clonidine Patch Placement) 1 ea N/A QS [facility] Stop: 02/06/21 07:59 Last Admin: 01/07/21 15:08 Dose: 1 ea Documented by: [id number] Admin: 01/07/21 09:42 Dose: Not Given Documented by: [id number] Morphine Sulfate (Morphine Sulfate Cr 15 Mg Tabcr) 30 mg PO BID [facility] Stop: 01/21/21 08:59 Last Admin: 01/07/21 22:01 Dose: 30 mg Documented by: [id number] Admin: 01/07/21 09:56 Dose: Not Given Documented by: [id number] Multivitamins (Multivitamin Tab) 1 tab PO QAM [facility] Stop: 02/06/21 08:59 Last Admin: 01/07/21 09:56 Dose: Not Given Documented by: [id number] Ondansetron HCl (Ondansetron Inj 2 Mg/Ml 2 Ml Vial) 4 mg IV Q6H PRN PRN Reason: Nausea Stop: 02/06/21 06:18 Last Admin: 01/07/21 17:51 Dose: 4 mg Documented by: [id number] Oxycodone HCl (Oxycodone Hcl Ir 5 Mg Tab (Immediate Release)) 5 mg PO Q4H PRN PRN Reason: severe pain Stop: 01/21/21 06:18 Last Admin: 01/07/21 14:31 Dose: 5 mg Documented by: [id number] Discontinued Medications Hydralazine HCl (Hydralazine Hcl 20 Mg/Ml Vial) 10 mg IV NOW STA Stop: 01/07/21 02:02 Last Admin: 01/07/21 02:09 Dose: 10 mg Documented by: [id number] Sodium Chloride (Nss 1000ml) 500 mls @ 999 mls/hr IV .Q31M ONE Stop: 01/07/21 01:23 Last Infusion: 01/07/21 03:24 Dose: 0 mls/hr Documented by: [id number] Admin: 01/07/21 01:07 Dose: 999 mls/hr Documented by: [id number] Lorazepam (Ativan) 1 mg in 2 mls @ 2 mls/min IV NOW STA Stop: 01/07/21 02:45 Last Admin: 01/07/21 02:59 Dose: 2 mls/min Documented by: [id number] Insulin Human Regular 3 units/ (Syringe) 3 mls @ 1.5 mls/min IV NOW ONE Stop: 01/07/21 09:01 Last Admin: 01/07/21 09:10 Dose: 1.5 mls/min Documented by: [id number] Cosigned by: [id number] Metoprolol Tartrate (Metoprolol Tartrate 1 Mg/Ml Vial) 5 mg IV NOW STA Stop: 01/07/21 03:26 Last Admin: 01/07/21 03:28 Dose: 5 mg Documented by: [id number] Ondansetron HCl (Ondansetron Inj 2 Mg/Ml 2 Ml Vial) 4 mg IV NOW STA Stop: 01/07/21 00:54 Last Admin: 01/07/21 01:07 Dose: 4 mg Documented by: [id number] Discharge Plan Visit Data Chief Complaint: Nausea Stated Complaint: NAUSEA,VOMITING,DIARRHEA,TROUBLE BREATHING ED Provider: Monique Coles Discharge Problem: Hypertension, Nausea & vomiting Patient Disposition: Admitted As Inpatient Discharge Instructions Interventions: ED Discharge Assessment Last Done: 01/07/21 05:29 Discharge Problem: Hypertension Qualifiers: Hypertension type: unspecified secondary hypertension Qualified Code(s): I15.9 - Secondary hypertension, unspecified Nausea & vomiting Qualifiers: Vomiting type: unspecified Vomiting Intractability: intractable Qualified Code(s): R11.2 - Nausea with vomiting, unspecified
[2021-01-07] MEDS ORDERED: LORazepam 1 MG/2 ML VIAL IV STA (02:44)
[2021-01-07] MEDS ORDERED: METOPROLOL TARTRATE 1 MG/ML VIAL IV STA (03:25)
[2021-01-07] MEDS ORDERED: ONDANSETRON 8MG OD TAB PO PRN (06:19)
[2021-01-07] MEDS ORDERED: POLYETHYLENE (MIRALAX) 17 GM PACK PO PRN (06:19)
[2021-01-07] MEDS ORDERED: ACETAMINOPHEN 325 MG TAB PO PRN (06:19)
[2021-01-07] MEDS ORDERED: NITROGLYCERIN SL 0.4 MG/TAB TAB SL PRN (06:19)
[2021-01-07] MEDS ORDERED: ALBUTEROL HFA 8 GM INHALER INH PRN (06:19)
[2021-01-07] MEDS ORDERED: EPINEPHrine INJ 1 MG/ML AMP IM PRN (06:26)
[2021-01-07 07:01] LABS: Basophils # (auto) 0.02 K/uL (0-0.2); Basophils % (auto) 0.2 %; Eosinophils # (auto) 0.01 K/uL (0-0.5); Eosinophils % (auto) 0.1 %; Hematocrit (blood only) 32.3 % (42-52); Hemoglobin 10.8 g/dL (14.0-18.0); Immature Granulocytes # (auto) 0.03 K/uL (0.00-0.02); Immature Granulocytes % (auto) 0.2 %; Lymphocytes # (auto) 1.05 K/uL (1.2-3.4); Lymphocytes % (auto) 8.1 %; Mean Corpuscular Hgb Conc 33.4 g/dL (32-36); Mean Corpuscular Volume 86.8 fL (80-100); Mean Platelet Volume 9.7 fL (7.4-10.4); Monocytes # (auto) 0.98 K/uL (0.11-0.59); Monocytes % (auto) 7.5 %; Neutrophils # (auto) 10.92 K/uL (1.4-6.5); Neutrophils % (auto) 83.9 %; Platelet Count 397 K/uL (130-400); RDW Coefficient of Variation 13.6 % (11.5-14.5); RDW Standard Deviation 42.8 fL (36.4-46.3); Red Blood Count 3.72 M/uL (4.7-6.1); White Blood Count 13.01 K/uL (4.8-10.8)
[2021-01-07] MEDS ORDERED: ERTAPENEM SODIUM 1,000 MG in SODIUM CHLORIDE 0.9% 50 ML IV SCH (07:15)
[2021-01-07] MEDS ORDERED: CONSULT PHARMACY PRN (07:22)
[2021-01-07 07:23] LABS: BUN Creatinine Ratio 11.6 (10-20); Calcium 9.1 mg/dl (8.5-10.1); Creatinine Clr Calc Pharmacy 9.1 ml/min; Est GFR (Non-African American) 23.3 ml/min; Magnesium 1.8 mg/dl (1.8-2.4); Potassium 3.9 mmol/L (3.5-5.1)
--- NOTE | 2021-01-07 07:27 | CT Scan Report ---
CT OF THE ABDOMEN AND PELVIS WITHOUT CONTRAST CLINICAL HISTORY: nausea/vomiting COMPARISON STUDY: CT of the abdomen and pelvis December 20, 2020. TECHNIQUE: Axial images of the abdomen and pelvis were obtained without IV contrast. Images were revi ewed in the axial, sagittal, and coronal planes. Automated exposure control was utilized for the tamia dy. A dose lowering technique was utilized adhering to the principles of ALARA. FINDINGS: A lytic lesion within the left ninth rib is again noted. There has been interval developmen t of circumferential wall thickening of the distal esophagus. The stomach is mildly distended and flu id-filled. Gastric stimulator is noted. Evaluation of the abdomen and pelvis is suboptimal as unenhan brianna exam. There is no pneumatosis, free air or portal venous gas. Unenhanced images of the liver, spl een, adrenal glands, kidneys and pancreas are unremarkable with exception of pancreatic glandular atr ophy. There is no biliary ductal dilatation status post cholecystectomy. There is no hydronephrosis. There is no evidence for a bowel obstruction. The appendix is mildly dilated, measuring 1 cm in calib er. This is similar to prior exam. The appendix is fluid-filled. There is no definite periappendiceal infiltration. Mild bladder wall thickening. There is no lymphadenopathy within the abdomen or the pe lvis. No fluid collection is identified. A marker within the left upper quadrant was placed at site o f palpable lump. No corresponding abnormality is identified. IMPRESSION: 1. Interval development of circumferential wall thickening of the distal esophagus suggestive of esop hagitis. 2. Fluid-filled, mildly distended stomach. 3. No bowel obstruction. 4. Redemonstration of a lytic lesion within left ninth rib suggestive of metastatic disease. 5. Mildly distended appendix which is similar in caliber to prior examination. No definite periappend iceal infiltration. The findings do not strongly suggest acute appendicitis however correlation with right lower quadrant pain is recommended. Findings discussed with Lorne Segal at time of dictation. ACT 112: Negative or not required by law. Electronically signed by: Bryce Perez M.D. 01/07/2021 7:26 AM
--- NOTE | 2021-01-07 07:27 | History and Physical Report ---
DATE OF ADMISSION: 01/07/2021. CHIEF COMPLAINT: Nausea, vomiting, elevated blood pressure. HISTORY OF PRESENT ILLNESS: This is a 55-year-old male with past medical history significant for COPD; non-small cell lung cancer, stage III, status post surgery, incomplete chemotherapy secondary to intolerance; history of ulcerative colitis; gastroparesis, status post gastric pacemaker; chronic pain, on narcotics; hypertension; type 1 diabetes; diabetic neuropathy; past tobacco abuse; chronic kidney disease, baseline creatinine around 2; chronic anemia, baseline hemoglobin around 2; history of seizure disorder; history of neurogenic bladder as per records. He was recently in the hospital with IVAN and toxic encephalopathy and acute respiratory failure thought to be from narcotic meds and IVAN. Also had a left ring finger wound ulcer. Cultures are growing MSSA. The patient did fine, discharged . The patient says he is currently back at home, lives alone. His discharge creatinine was 2.4, today his creatinine was 2.6. He says since the last couple of days, he had a lot of nausea, vomiting, some shaking, abdominal painthat is why he came to the hospital . In the ER, his blood pressure was elevated. Even after giving Lopressor and hydralazine, his blood pressure is still high. He was also given Ativan and Zofran and his nausea is better now. Somewhat sleepy, but able to answer all the questions appropriately, alert and oriented. Denies any headache, denies any blurred visions, no earache, no runny nose, no sore throat, no cough. Denies any shortness of breath, chest pain. He is able to swallow, he says he is taking his pills okay at home and there is no dysphagia. He says he has diarrhea. Denies any blood in stools. No hematuria or burning micturition. ALLERGIES: BEE VENOM, PENICILLINS, CAT DANDER. PAST MEDICAL HISTORY: As mentioned above. PAST SURGICAL HISTORY: Colonoscopy, EGDs, EGD with endoscopic ultrasound, placement of pain pump, history of removal of pain pump, robotic thoracoscopy with lymphadenectomy, robotic thoracoscopy with lobectomy. HOME MEDICATIONS: The patient is on albuterol 2 puffs inhalation q. 4 hours p.r.n., amlodipine 5 mg p.o. a.m., Basaglar insulin 7 units subcutaneous at bedtime, cephalexin 500 mg po bid last dose 01/08/2021, clonidine 1 patch transdermal weekly, cyclobenzaprine 5 mg p.o. t.i.d. p.r.n., epinephrine 0.3 mg IM p.r.n.Lexapro 10mg po daily, Wixela inhalation BID , Gabapentin 100 mg p.o. t.i.d., insulin sliding scale, lactobacillus 2 capsules daily, Keppra 750 mg p.o. b.i.d., magnesium oxide 400 mg p.o. b.i.d., MS Contin 30 mg p.o. q. 12 hours, multivitamin one tablet p.o. daily, Zofran 8 mg p.o. q. 8 hours p.r.n., oxycodone 5 mg p.o. q. 4 hours p.r.n., Protonix 40 mg p.o. a.m. FAMILY HISTORY: Significant for aunt has cancer and bilateral lung transplant, father had diabetes, mother had diabetes, sister has renal cell carcinoma, Maternal grandfather has diabetes. SOCIAL HISTORY: . Former smoker, quit in 2000. Smoked half pack a day for 2 years. Alcohol, social drinking, no drug use. REVIEW OF SYSTEMS: As per HPI. Rest of the review of systems is negative. PHYSICAL EXAMINATION: GENERAL: The patient is of moderate build, not in acute distress. VITAL SIGNS: Temperature 36.7, pulse 108, respiratory rate 18, blood pressure 192/121, oxygen 100% on room air. HEENT: Pupils equal, round and reactive to light. Oral mucosa moist. NECK: No JVD, no neck masses. CARDIOVASCULAR: S1 and S2 heard. Tachycardia. No murmurs. RESPIRATORY SYSTEM: Normal AP diameter. No accessory muscle use. No wheezing, no crackles. ABDOMEN: Soft, bowel sounds present. diffuse abdominal discomfort. No distention. CENTRAL NERVOUS SYSTEM: Alert and oriented x3. No facial droop. Speech is clear. Moves extremities, obeys commands. EXTREMITIES: No edema, no erythema seen. LABORATORY DATA: WBC 10.7, hemoglobin 10.9, hematocrit 32.3, platelets 396. Sodium 137, potassium 4.3, chloride 104, bicarb 24, BUN 33, creatinine 2.69, serum glucose 298, calcium 9.1, total bilirubin 0.1, AST 14, ALT 17, alkaline phosphatase 110. Lipase 48. SARS-CoV-2 PCR negative. ASSESSMENT AND PLAN: This is a 55-year-old male, who presents with nausea and vomiting. 1. Nausea and vomiting: The patient has history of gastroparesis,and gastric pacemaker. The patient is also on chronic narcotic pain medications. The patient says he had diarrhea at home. Will get a CT of the abdomen and pelvis. Currently nausea improved. Will place him on gentle fluids. Continue IV antiemetics. Will place him tly n.p.o. with p.o. medications. If the patient is not able to take p.o. medications, will change to IV. 2. Hypertensive urgency: Even after hydralazine and Lopressor in the ER, his blood pressure is still running high . Question of withdrawal from his pain medicine. The patient has nausea at home, but he states he was able to take his pills at home. Will continue his home blood pressure medications of clonidine patch, amlodipine. Will place him on IV labetalol p.r.n. and closely monitor. 3. History of bladder retention: Will follow the CT scan. 4. Chronic kidney disease stage III: Possible acute kidney injury. His baseline creatinine used to be 2, but last admission on discharge it was 2.4 and today is 2.6. Will follow the repeat labs. Will place him on gentle fluids. 5. History of left ring finger wound: Last admission he received daptomycin and ceftriaxone, currently on Keflex, last dose 01/08/21. 6. Type 1 diabetes: His recent HbA1c was 7.4, currently n.p.o. Continue his long-acting insulin sliding scale. Monitor the blood sugars. 7. Non-small cell lung cancer, stage III, status post surgery, incomplete chemotherapy secondary to tolerance. Last admission,lesion noted on left 9th rib. Needs to follow up with PCP and oncologist. 8. History of seizure disorder, currently on Keppra 750 b.i.d. If not able to take p.o., then need to change to IV. 9. Chronic anemia: Hemoglobin 10.2, seems stable. Will follow the repeat labs. 10. History of tobacco abuse. 11. Chronic pain: Continue his home pain medications. 12. Depression: Continue Lexapro. 13. History of chronic obstructive pulmonary disease: Continue home inhalers. 14. Deep venous thrombosis prophylaxis: Will place him on heparin subQ DISPOSITION: Closely monitor in the med tele. Level 1 full code. Expect to discharge home and follow with family doctor. Social service to help with discharge planning. Job ID: [id number] AMILCAR
[2021-01-07] MEDS ORDERED: INSULIN ASPART 100 UNITS/ML 3 ML PEN SC SCH (07:30)
[2021-01-07] MEDS ORDERED: PHARMACY GLYCEMIC MGMT CONSULT PRN (07:45)
[2021-01-07] MEDS ORDERED: INSULIN HUMAN REGULAR PER UNIT 3 UNITS in SYRINGE 2.97 ML IV ONE (09:00)
[2021-01-07] MEDS ORDERED: cephALEXin 500 MG CAP PO SCH (09:00)
[2021-01-07] MEDS ORDERED: PANTOprazole 40 MG TAB PO SCH (09:00)
[2021-01-07] MEDS: SODIUM CHLORIDE 0.9% 1000ML 1,000 ML IV SCH ×2 (09:31→21:52)
[2021-01-07] MEDS: HEPARIN SOD 5,000 UNIT/0.5 ML VIAL SQ SCH ×3 (09:41→21:56)
[2021-01-07] MEDS: FLUTICASONE/VILANTEROL 100/25MCG 14 PUFFS/INHALER INH SCH (09:41)
[2021-01-07] MEDS: CHECK CLONIDINE PATCH PLACEMENT SCH ×2 (09:42→15:08)
[2021-01-07] MEDS: INSULIN HUMAN REGULAR SC SCH ×3 (09:44→17:41)
[2021-01-07] MEDS: amLODIPine BESYLATE 5 MG TAB PO SCH (09:54)
[2021-01-07] MEDS: ESCITALOPRAM OXALATE 10 MG TAB PO SCH (09:54)
[2021-01-07] MEDS: GABAPENTIN 100 MG CAP PO SCH ×3 (09:55→21:54)
[2021-01-07] MEDS: ADVANCED PROBIOTIC 1250 MG CAPSULE PO SCH (09:55)
[2021-01-07] MEDS: MULTIVITAMIN TAB PO SCH (09:56)
[2021-01-07] MEDS: levETIRAcetam 250 MG TAB PO SCH ×2 (09:56→21:54)
[2021-01-07] MEDS: MoRPHine SULFATE CR 15 MG TABCR PO SCH ×2 (09:56→22:01)
[2021-01-07] MEDS: MAGNESIUM OXIDE 400 MG TAB PO SCH ×2 (09:56→21:55)
[2021-01-07] MEDS: PANTOprazole 40 MG in SYRINGE 0 ML IV SCH ×2 (10:00→22:13)
[2021-01-07] MEDS: ERTAPENEM SODIUM 500 MG in SODIUM CHLORIDE 0.9% 50 ML IV SCH (10:08)
--- NOTE | 2021-01-07 10:28 | Surgery Consultation ---
Date of Consultation January 07, 2021 Assessment & Plan (1) Nausea and vomiting: (2) Abnormal finding on CT scan: 55-year-old gentleman with complex past medical history presents with increased nausea and vomiting. He also has chronic abdominal pain. On CT scan, the appendix is fluid-filled and borderline dilated at 1 cm without periappendiceal stranding. Reviewing prior CT scans, there is minimal change in the size of the appendix. On physical exam he has no tenderness or other fin dings on deep palpation of the right lower quadrant specifically or in the entire abdomen as a whole. His white count is slightly elevated at 13. Also on the CT scan he has thickening of the distal esophagus, with a question of esophagitis. I do not think he has appendicitis based on his physical findings, laboratory analysis, and CT scan findings. Given the esophageal thickening, and the increased nausea and vomiting, he may benefit from gastroenterology consultation for possible upper endoscopy. If he were to develop any further signs or symptoms related to his appendix or other intra-abdominal process, I would recommend repeating an abdominal/pelvis CT scan with either p.o. or rectal contrast. We will follow him closely. History of Present Illness Reason for Consultation: Concern for appendicitis on CT scan Requesting Physician: Lorne Segal MD Attending Physician: Lorne Segal MD History of Present Illness 55-year-old gentleman with a complex past medical history including non-small cell lung cancer, stage III, COPD, acute kidney injury, chronic abdominal pain, chronic nausea and vomiting, who presents with worsening nausea and vomiting over the past few days. He was recently admitted for toxic encephalopathy and acute kidney injury and was discharged last week. He went home on Saturday, and developed worsening nausea and vomiting, over and above his chronic nausea and vomiting. He came back to the hospital, and has been admitted. He has a history of chronic pain including abdominal pain which he states is the same as usual. He does not complain of any increased abdominal pain over his normal pain. He underwent CT scan without IV or p.o. contrast, which demonstrated a soft finding of fluid in the appendix with slight dilatation of the appendix to 1 cm. There is no periappendiceal stranding. He admits to diarrhea, but he has had some normal bowel movements as well. He denies fevers or chills, or sweats. Allergies Allergy/AdvReac Type Severity Reaction Status Date / Time bee venom protein (honey bee) Allergy Mild SWELLING Verified 01/07/21 02:34 AT SITE, SOB Penicillins Allergy Unknown "SINCE Verified 01/07/21 02:34 "-Amoxicillin cat dander Allergy Unknown Verified 01/07/21 02:34 Home Medications Medication Instructions Recorded Confirmed Type albuterol sulfate 90 mcg/actuation 2 puff INHALATION Q4H PRN 05/05/18 01/07/21 History aerosol inhaler epinephrine 0.3 mg/0.3 mL 0.3 mg IM Q3H PRN 05/05/18 01/07/21 History injection, auto-injector (EpiPen) insulin glargine 100 unit/mL (3 7 unit SUBCUT HS 05/05/18 01/07/21 History mL) subcutaneous pen (Basaglar KwikPen U-100 Insulin) insulin lispro 100 unit/mL 1 sliding scale dose SUBCUT UD 05/05/18 01/07/21 History subcutaneous cartridge (Humalog U-100 Insulin) multivitamin 1 tab PO QAM 05/05/18 01/07/21 History pantoprazole 40 mg tablet,delayed 40 mg PO QAM 05/05/18 01/07/21 History release clonidine 0.2 mg/24 hr weekly 1 patch TRANSDERMAL WK 01/23/20 01/07/21 History transdermal patch escitalopram oxalate 10 mg tablet 10 mg PO DAILY 01/24/20 01/07/21 History (Lexapro) fluticasone 250 mcg-salmeterol 50 1 inh INHALATION BID 01/24/20 01/07/21 History mcg/dose blistr powdr for inhalation (Wixela Inhub) amlodipine 5 mg tablet (Norvasc) 5 mg PO QAM #30 tab 01/29/20 01/07/21 Rx levetiracetam 750 mg tablet 750 mg PO BID 30 Days #60 tab 01/29/20 01/07/21 Rx (Keppra) cyclobenzaprine 5 mg tablet 5 mg PO TID PRN 12/20/20 01/07/21 History ondansetron 8 mg disintegrating 8 mg PO Q8H PRN 12/20/20 01/07/21 History tablet L.acidop,casei,lactis,rham-B.lact,jose 2 cap PO DAILY #30 cap 12/29/20 01/07/21 Rx 625 mg (10 billion cell) capsule (Advanced Probiotic) cephalexin 500 mg capsule 500 mg PO BID 10 Days #20 cap 12/29/20 01/07/21 Rx gabapentin 100 mg capsule 100 mg PO TID #30 cap 12/29/20 01/07/21 Rx magnesium oxide 400 mg (241.3 mg 400 mg PO BID #30 tab 12/29/20 01/07/21 Rx magnesium) tablet morphine 30 mg tablet,extended 30 mg PO Q12H #10 tab 12/29/20 01/07/21 Rx release (MS Contin) oxycodone 5 mg tablet 5 mg PO Q4H PRN #10 tab 12/29/20 01/07/21 Rx Patient History Medical History (Updated 01/07/21 @ 10:29 by Hubert Rao MD) Acute dyspnea Acute hyponatremia Acute renal insufficiency IVAN (acute kidney injury) Anemia Chest pain No current chest pain...related to reflux per patient Chronic pain COPD (chronic obstructive pulmonary disease) Diabetes mellitus type 2, uncontrolled Diabetic autonomic neuropathy Diabetic peripheral neuropathy Discharge planning issues DVT prophylaxis Elevated d-dimer Gastroparesis "s/p gastric stimulator" Hypertension Hypomagnesemia Intractable nausea and vomiting Lung cancer "dx 01/2016; adenoCa SHAWN; + hilar nodes; s/p left upper lobectomy + chemo" On 08/05/16 16:31 Edie Calerokaren wrote "dx 01/2016; s/p L side lobectomy; currently undergoing chemo" Nausea and vomiting Orthostatic hypotension Pneumonia Pneumonia Renal insufficiency Seizure disorder SOB (shortness of breath) Surgical History H/O colonoscopy " 04/22/2013- Mildly congested and erythematous mucosa in the ascending colon. One 1 mm polyp in the ascending colon resected. One benign appearing 1 mm polyp in the rectum resected. Internal hemorrhoids; Dr. Demarco" H/O esophagogastroduodenoscopy "01/26/2015- [place] Grade B reflux esophagitis, gastritis; Dr. Major" History of cholecystectomy History of tonsillectomy and adenoidectomy Hx of total knee arthroplasty S/P lobectomy of lung "left upper lobectomy for adenoCa" On 08/05/16 16:30 Edie Mcfarland wrote "L side [place] [facility] [place]" Status post insertion of intrathecal pump explanted Family History Other Family history non-contributory Social History Smoking Status: Former smoker Tobacco Type: Cigarettes Second Hand Exposure: No; Hx Alcohol Use: No Hx Substance Use: Yes Last Used Substance: Just Prior to Arrival Last Used Substance Other:: Four hours ago Substance Use Type Other:: fentanyl patch 24hrs a day-refused removal of 2 patches Preferred Language: Tajik Communication Ability: Effective Furnace Combustion Analyst Required: No Beliefs That Will Affect Care: Faith Faith Beliefs: Zoroastrian marital status: Single Current Living Situation: Alone Other Information That Helps Us Care for You: No Feels Safe at Home: Yes Assistive Devices: Cane Review of Systems Review of Systems: All systems reviewed & are unremarkable except as noted in Subjective Physical Exam Constitutional: WD/WN, vitals as above + lethargic Eyes: PERRL, conjunctivae normal, anicteric sclerae Neck: trachea midline, no thyromegaly Respiratory: normal respiratory effort, lungs clear to auscultation Cardiovascular: RRR, no murmur, no edema Gastrointestinal (Abdomen): normal bowel sounds, soft, nontender, no hepatosplenomegaly No tenderness, rebound, guarding, on deep palpation in the right lower quadrant Musculoskeletal: Extremities: no cyanosis and no clubbing Skin: no rashes, warm and dry Psychiatric: A+Ox3, euthymic affect Lymphatic: no cervical lymphadenopathy Results & Data ([facility]) Vital Signs (Past 12 Hours) Vital Signs Temp Pulse Pulse Resp BP BP Pulse Ox 01/07/21 07:26 37.0 C 97 H 20 162/86 H 100 01/07/21 06:30 37.1 C 97 H 16 162/86 H 99 01/07/21 03:37 108 H 18 192/121 H 100 01/07/21 03:01 206/110 H 01/07/21 02:28 94 H 16 199/113 H 100 01/07/21 02:00 100 H 18 221/132 H 90 01/07/21 01:33 234/136 H 01/07/21 01:11 101 H 102 H 16 213/117 H 96 01/07/21 01:00 94 H 19 01/07/21 00:50 95 H 19 92 01/06/21 23:47 36.7 C 103 H 18 173/104 H 100 Laboratory Results 01/07/21 01/07/21 01/07/21 Range/Units 09:53 07:36 07:29 WBC (4.8-10.8) K/uL RBC (4.7-6.1) M/uL Hgb (14.0-18.0) g/dL Hct (42-52) % MCV (80-100) fL MCH (25-34) pg MCHC (32-36) g/dL RDW Std Deviation (36.4-46.3) fL RDW Coeff of Rik (11.5-14.5) % Plt Count (130-400) K/uL MPV (7.4-10.4) fL Immature Gran % (Auto) % Neut % (Auto) % Lymph % (Auto) % [place] % (Auto) % Eos % (Auto) % Baso % (Auto) % Neut # (Auto) (1.4-6.5) K/uL Lymph # (Auto) (1.2-3.4) K/uL [place] # (Auto) (0.11-0.59) K/uL Eos # (Auto) (0-0.5) K/uL Baso # (Auto) (0-0.2) K/uL Immature Gran # (Auto) (0.00-0.02) K/uL Sodium (136-145) mmol/L Potassium (3.5-5.1) mmol/L Chloride (98-107) mmol/L Carbon Dioxide (21-32) mmol/L Anion Gap (3-11) BUN (7-18) mg/dl Creatinine (0.6-1.4) mg/dl Est Cr Clr Drug Dosing ml/min Est GFR ( Amer) ml/min Est GFR (Non-Af Amer) ml/min BUN/Creatinine Ratio (10-20) Glucose (70-99) mg/dl POC Glucose 223 H 301 H* 317 H* (70-99) mg/dl Calcium (8.5-10.1) mg/dl Magnesium (1.8-2.4) mg/dl Total Bilirubin (0.2-1) mg/dl AST (15-37) U/L ALT (12-78) U/L Alkaline Phosphatase (45-117) U/L Total Protein (6.4-8.2) gm/dl Albumin (3.4-5.0) gm/dl Globulin (2.5-4.0) gm/dl Albumin/Globulin Ratio (0.9-2) Lipase (73-393) U/L COVID-19 Eval Order SARS-CoV-2 (PCR) (Negative) 01/07/21 01/07/21 01/07/21 Range/Units 06:48 06:48 03:02 WBC 13.01 H (4.8-10.8) K/uL RBC 3.72 L (4.7-6.1) M/uL Hgb 10.8 L (14.0-18.0) g/dL Hct 32.3 L (42-52) % MCV 86.8 (80-100) fL MCH 29.0 (25-34) pg MCHC 33.4 (32-36) g/dL RDW Std Deviation 42.8 (36.4-46.3) fL RDW Coeff of Rik 13.6 (11.5-14.5) % Plt Count 397 (130-400) K/uL MPV 9.7 (7.4-10.4) fL Immature Gran % (Auto) 0.2 % Neut % (Auto) 83.9 % Lymph % (Auto) 8.1 % [place] % (Auto) 7.5 % Eos % (Auto) 0.1 % Baso % (Auto) 0.2 % Neut # (Auto) 10.92 H (1.4-6.5) K/uL Lymph # (Auto) 1.05 L (1.2-3.4) K/uL [place] # (Auto) 0.98 H (0.11-0.59) K/uL Eos # (Auto) 0.01 (0-0.5) K/uL Baso # (Auto) 0.02 (0-0.2) K/uL Immature Gran # (Auto) 0.03 H (0.00-0.02) K/uL Sodium 140 (136-145) mmol/L Potassium 3.9 (3.5-5.1) mmol/L Chloride 106 (98-107) mmol/L Carbon Dioxide 26 (21-32) mmol/L Anion Gap 8.0 (3-11) BUN 34 H (7-18) mg/dl Creatinine 2.90 H (0.6-1.4) mg/dl Est Cr Clr Drug Dosing 9.1 ml/min Est GFR ( Amer) 27.0 ml/min Est GFR (Non-Af Amer) 23.3 ml/min BUN/Creatinine Ratio 11.6 (10-20) Glucose 297 H (70-99) mg/dl POC Glucose (70-99) mg/dl Calcium 9.1 (8.5-10.1) mg/dl Magnesium 1.8 (1.8-2.4) mg/dl Total Bilirubin (0.2-1) mg/dl AST (15-37) U/L ALT (12-78) U/L Alkaline Phosphatase (45-117) U/L Total Protein (6.4-8.2) gm/dl Albumin (3.4-5.0) gm/dl Globulin (2.5-4.0) gm/dl Albumin/Globulin Ratio (0.9-2) Lipase (73-393) U/L COVID-19 Eval Order SARS-CoV-2 (PCR) NEGATIVE (Negative) 01/07/21 01/07/21 01/07/21 Range/Units 03:02 01:02 01:02 WBC 10.77 (4.8-10.8) K/uL RBC 3.67 L (4.7-6.1) M/uL Hgb 10.9 L (14.0-18.0) g/dL Hct 32.3 L (42-52) % MCV 88.0 (80-100) fL MCH 29.7 (25-34) pg MCHC 33.7 (32-36) g/dL RDW Std Deviation 43.4 (36.4-46.3) fL RDW Coeff of Rik 13.4 (11.5-14.5) % Plt Count 396 (130-400) K/uL MPV 9.9 (7.4-10.4) fL Immature Gran % (Auto) 0.2 % Neut % (Auto) 85.1 % Lymph % (Auto) 7.2 % [place] % (Auto) 7.2 % Eos % (Auto) 0.1 % Baso % (Auto) 0.2 % Neut # (Auto) 9.16 H (1.4-6.5) K/uL Lymph # (Auto) 0.78 L (1.2-3.4) K/uL [place] # (Auto) 0.78 H (0.11-0.59) K/uL Eos # (Auto) 0.01 (0-0.5) K/uL Baso # (Auto) 0.02 (0-0.2) K/uL Immature Gran # (Auto) 0.02 (0.00-0.02) K/uL Sodium 137 (136-145) mmol/L Potassium 4.3 (3.5-5.1) mmol/L Chloride 104 (98-107) mmol/L Carbon Dioxide 24 (21-32) mmol/L Anion Gap 9.0 (3-11) BUN 33 H (7-18) mg/dl Creatinine 2.69 H (0.6-1.4) mg/dl Est Cr Clr Drug Dosing 29.3 ml/min Est GFR ( Amer) 29.6 ml/min Est GFR (Non-Af Amer) 25.5 ml/min BUN/Creatinine Ratio 12.2 (10-20) Glucose 298 H (70-99) mg/dl POC Glucose (70-99) mg/dl Calcium 9.1 (8.5-10.1) mg/dl Magnesium (1.8-2.4) mg/dl Total Bilirubin 0.5 (0.2-1) mg/dl AST 14 L (15-37) U/L ALT 17 (12-78) U/L Alkaline Phosphatase 110 (45-117) U/L Total Protein 7.8 (6.4-8.2) gm/dl Albumin 2.8 L (3.4-5.0) gm/dl Globulin 5.0 H (2.5-4.0) gm/dl Albumin/Globulin Ratio 0.6 L (0.9-2) Lipase 48 L (73-393) U/L COVID-19 Eval Order Covid19 at [facility] SARS-CoV-2 (PCR) (Negative) 01/07/21 Range/Units 00:31 WBC (4.8-10.8) K/uL RBC (4.7-6.1) M/uL Hgb (14.0-18.0) g/dL Hct (42-52) % MCV (80-100) fL MCH (25-34) pg MCHC (32-36) g/dL RDW Std Deviation (36.4-46.3) fL RDW Coeff of Rik (11.5-14.5) % Plt Count (130-400) K/uL MPV (7.4-10.4) fL Immature Gran % (Auto) % Neut % (Auto) % Lymph % (Auto) % [place] % (Auto) % Eos % (Auto) % Baso % (Auto) % Neut # (Auto) (1.4-6.5) K/uL Lymph # (Auto) (1.2-3.4) K/uL [place] # (Auto) (0.11-0.59) K/uL Eos # (Auto) (0-0.5) K/uL Baso # (Auto) (0-0.2) K/uL Immature Gran # (Auto) (0.00-0.02) K/uL Sodium (136-145) mmol/L Potassium (3.5-5.1) mmol/L Chloride (98-107) mmol/L Carbon Dioxide (21-32) mmol/L Anion Gap (3-11) BUN (7-18) mg/dl Creatinine (0.6-1.4) mg/dl Est Cr Clr Drug Dosing ml/min Est GFR ( Amer) ml/min Est GFR (Non-Af Amer) ml/min BUN/Creatinine Ratio (10-20) Glucose (70-99) mg/dl POC Glucose 308 H* (70-99) mg/dl Calcium (8.5-10.1) mg/dl Magnesium (1.8-2.4) mg/dl Total Bilirubin (0.2-1) mg/dl AST (15-37) U/L ALT (12-78) U/L Alkaline Phosphatase (45-117) U/L Total Protein (6.4-8.2) gm/dl Albumin (3.4-5.0) gm/dl Globulin (2.5-4.0) gm/dl Albumin/Globulin Ratio (0.9-2) Lipase (73-393) U/L COVID-19 Eval Order SARS-CoV-2 (PCR) (Negative) Diagnostic Findings CT OF THE ABDOMEN AND PELVIS WITHOUT CONTRAST CLINICAL HISTORY: nausea/vomiting COMPARISON STUDY: CT of the abdomen and pelvis December 20, 2020. TECHNIQUE: Axial images of the abdomen and pelvis were obtained without IV contrast. Images were reviewed in the axial, sagittal, and coronal planes. Automated exposure control was utilized for the study. A dose lowering technique was utilized adhering to the principles of ALARA. FINDINGS: A lytic lesion within the left ninth rib is again noted. There has been interval development of circumferential wall thickening of the distal esophagus. The stomach is mildly distended and fluid-filled. Gastric stimulator is noted. Evaluation of the abdomen and pelvis is suboptimal as unenhanced exam. There is no pneumatosis, free air or portal venous gas. Unenhanced images of the liver, spleen, adrenal glands, kidneys and pancreas are unremarkable with excep tion of pancreatic glandular atrophy. There is no biliary ductal dilatation status post cholecystectomy. There is no hydronephrosis. There is no evidence for a bowel obstruction. The appendix is mildly dilated, measuring 1 cm in caliber. This is similar to prior exam. The appendix is fluid-filled. There is no definite periappendiceal infiltration. Mild bladder wall thickening. There is no lymphadenopathy within the abdomen or the pelvis. No fluid collection is identified. A marker within the left upper quadrant was placed at site of palpable lump. No corresponding abnormality is identified. IMPRESSION: 1. Interval development of circumferential wall thickening of the distal esophagus suggestive of esophagitis. 2. Fluid-filled, mildly distended stomach. 3. No bowel obstruction. 4. Redemonstration of a lytic lesion within left ninth rib suggestive of metastatic disease. 5. Mildly distended appendix which is similar in caliber to prior examination. No definite periappendiceal infiltration. The findings do not strongly suggest acute appendicitis however correlation with right lower quadrant pain is recommended. Findings discussed with Lorne Segal at time of dictation.
[2021-01-07] MEDS ORDERED: ERTAPENEM CONSULT ACTIVE PRN (11:30)
--- NOTE | 2021-01-07 11:51 | Pharmacy Report ---
Pharmacy Glycemic Short Note 2 - Date of Service January 07, 2021 - Glycemic Short BSG Results (Last 24 hours): 01/07/21 01/07/21 01/07/21 00:31 01:02 06:48 Glucose 298 H 297 H POC Glucose 308 H* 01/07/21 01/07/21 01/07/21 07:29 07:36 09:53 Glucose POC Glucose 317 H* 301 H* 223 H 01/07/21 11:10 Glucose POC Glucose 224 H OUTPATIENT ANTIDIABETIC REGIMEN: * Lantus 7 units HS+ Humalog ASSESSMENT: * Mr Hamilton is a 55 y/o M with T2DM who presents with with N/V. He is currently NPO. * Per previous visit, scheduled regular insulin q 6 hours works well for patient when NPO. Since it is sliding, it functions as both basal and correctional. * Since BSG > 300 mg/dL currently, will give small insulin bolus (3 units IV) to produce rapid decrease in BSG. PLAN FOR INPATIENT GLYCEMIC CONTROL: * Basal insulin * Regular insulin q6 (0 units if BSG < 110, 1 unit if BSG 110-140, 2 units if BSG 141-200 mg/dL, 3 units if BSG > 200) * Bolus insulin * none for now PLAN FOR DISCHARGE: * TBD
[2021-01-07] MEDS: oxyCODONE HCL IR 5 MG TAB (IMMEDIATE RELEASE) PO PRN (14:31)
--- NOTE | 2021-01-07 16:48 | Gastrointestinal Consultation ---
Date of Consultation January 07, 2021 Assessment & Plan (1) Abnormal finding on CT scan: (2) Nausea and vomiting: (3) Gastroparesis: worsening nausea and vomiting possibly 2/2 gastroparesis vs. metastatic malignancy given new lesion in his rib. also with thickening of the esophagus, possible esophagitis. Recs: low fat, low fiber, small frequent meals 3-4 times a day reglan 10 mg IV TID prior to meals supportive care, IVFs will require a nonurgent EGD to evaluate the esophageal thickening and perhaps also the gastric pacer (previous pacer eroded through stomach lining and had to be removed); this can be done early next week on wednesday 01/10 or as an outpatient if he is discharged before then. zofran prn breakthrough symptoms Thank you for allowing me to participate in the care of this patient History of Present Illness Attending Physician: Lorne Segal MD History of Present Illness 55-year-old male with past medical history significant for COPD; non-small cell lung cancer, stage III, status post surgery, incomplete chemotherapy secondary to intolerance; history of ulcerative colitis; gastroparesis, status post gastric pacemaker x 2, most recently in May 2020; chronic pain, on narcotics; hypertension; type 1 diabetes; diabetic neuropathy; past tobacco abuse; chronic kidney disease, baseline creatinine around 2; chronic anemia, baseline hemo globin around 2; history of seizure disorder; history of neurogenic bladder here with worsening nausea and vomiting. This started a few days ago, does not recall any sick contacts or eating out. But cannot eat now at this point. He is on reglan in addition to his gastric pacer at home, as well as zofran. Also found to have a lytic lesion on his left rib (ninth) on imaging this admission. labs reviewed. VSS. Allergies Allergy/AdvReac Type Severity Reaction Status Date / Time bee venom protein (honey bee) Allergy Mild SWELLING Verified 01/07/21 02:34 AT SITE, SOB Penicillins Allergy Unknown "SINCE Verified 01/07/21 02:34 "-Amoxicillin cat dander Allergy Unknown Verified 01/07/21 02:34 Home Medications Medication Instructions Recorded Confirmed Type albuterol sulfate 90 mcg/actuation 2 puff INHALATION Q4H PRN 05/05/18 01/07/21 History aerosol inhaler epinephrine 0.3 mg/0.3 mL 0.3 mg IM Q3H PRN 05/05/18 01/07/21 History injection, auto-injector (EpiPen) insulin glargine 100 unit/mL (3 7 unit SUBCUT HS 05/05/18 01/07/21 History mL) subcutaneous pen (Basaglar KwikPen U-100 Insulin) insulin lispro 100 unit/mL 1 sliding scale dose SUBCUT UD 05/05/18 01/07/21 History subcutaneous cartridge (Humalog U-100 Insulin) multivitamin 1 tab PO QAM 05/05/18 01/07/21 History pantoprazole 40 mg tablet,delayed 40 mg PO QAM 05/05/18 01/07/21 History release clonidine 0.2 mg/24 hr weekly 1 patch TRANSDERMAL WK 01/23/20 01/07/21 History transdermal patch escitalopram oxalate 10 mg tablet 10 mg PO DAILY 01/24/20 01/07/21 History (Lexapro) fluticasone 250 mcg-salmeterol 50 1 inh INHALATION BID 01/24/20 01/07/21 History mcg/dose blistr powdr for inhalation (Wixela Inhub) amlodipine 5 mg tablet (Norvasc) 5 mg PO QAM #30 tab 01/29/20 01/07/21 Rx levetiracetam 750 mg tablet 750 mg PO BID 30 Days #60 tab 01/29/20 01/07/21 Rx (Keppra) cyclobenzaprine 5 mg tablet 5 mg PO TID PRN 12/20/20 01/07/21 History ondansetron 8 mg disintegrating 8 mg PO Q8H PRN 12/20/20 01/07/21 History tablet L.acidop,casei,lactis,rham-B.lact,jose 2 cap PO DAILY #30 cap 12/29/20 01/07/21 Rx 625 mg (10 billion cell) capsule (Advanced Probiotic) cephalexin 500 mg capsule 500 mg PO BID 10 Days #20 cap 12/29/20 01/07/21 Rx gabapentin 100 mg capsule 100 mg PO TID #30 cap 12/29/20 01/07/21 Rx magnesium oxide 400 mg (241.3 mg 400 mg PO BID #30 tab 12/29/20 01/07/21 Rx magnesium) tablet morphine 30 mg tablet,extended 30 mg PO Q12H #10 tab 12/29/20 01/07/21 Rx release (MS Contin) oxycodone 5 mg tablet 5 mg PO Q4H PRN #10 tab 12/29/20 01/07/21 Rx Patient History Medical History Acute dyspnea Acute hyponatremia Acute renal insufficiency IVAN (acute kidney injury) Anemia Chest pain No current chest pain...related to reflux per patient Chronic pain COPD (chronic obstructive pulmonary disease) Diabetes mellitus type 2, uncontrolled Diabetic autonomic neuropathy Diabetic peripheral neuropathy Discharge planning issues DVT prophylaxis Elevated d-dimer Gastroparesis "s/p gastric stimulator" Hypertension Hypomagnesemia Intractable nausea and vomiting 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 One 1 mm polyp in the ascending colon resected. One benign appearing 1 mm polyp in the rectum resected. Internal hemorrhoids; Dr. Demarco" H/O esophagogastroduodenoscopy "01/26/2015- [place] Grade B reflux esophagitis, gastritis; Dr. Major" History of cholecystectomy History of tonsillectomy and adenoidectomy Hx of total knee arthroplasty S/P lobectomy of lung "left upper lobectomy for adenoCa" On 08/05/16 16:30 Edie Mcfarland wrote "L side @ [facility] 05/25/16" Status post insertion of intrathecal pump explanted Family History Other Family history non-contributory Social History Smoking Status: Former smoker Tobacco Type: Cigarettes Second Hand Exposure: No; Hx Alcohol Use: No Hx Substance Use: Yes Last Used Substance: Just Prior to Arrival Last Used Substance Other:: Four hours ago Substance Use Type Other:: fentanyl patch 24hrs a day-refused removal of 2 patches Preferred Language: Khmer Communication Ability: Effective Building Maintenance Repairer Required: No Beliefs That Will Affect Care: Judaism Judaism Beliefs: Nondenominational marital status: Single Current Living Situation: Alone Other Information That Helps Us Care for You: No Feels Safe at Home: Yes Assistive Devices: Cane Review of Systems Constitutional: no fever, no chills and no weight loss Eyes: as per Subjective / HPI Ear, Nose, Mouth, Throat: as per Subjective / HPI Respiratory: no dyspnea and no dyspnea on exertion Cardiovascular: no chest pain and no palpitations Gastrointestinal: as per Subjective / HPI Musculoskeletal: no joint pain and no swelling Integumentary: no rash and no lesions Neurologic: no numbness and no paresthesia Psychiatric: no depression and no anxiety Endocrine: no fatigue Hematologic / Lymphatic: no easy bleeding and no easy bruising Physical Exam Constitutional: WD/WN, vitals as above Eyes: EOM intact bilaterally Neck: normal visual inspection Respiratory: normal respiratory effort, lungs clear to auscultation Cardiovascular: RRR, no murmur, no edema Gastrointestinal (Abdomen): Inspection/Auscultation: abdomen normal to inspection; abdomen not distended Percussion/Palpation: abdomen soft; abdomen nontender and no hepatosplenomegaly Musculoskeletal: Extremities: no cyanosis Gait: normal gait Skin: no rashes, warm and dry Neurologic: moves all extremities Psychiatric: A+Ox3, euthymic affect Results & Data ([facility]) Vital Signs (Past 12 Hours) Vital Signs Temp Pulse Resp BP Pulse Ox 01/07/21 15:41 37.3 C 93 H 20 127/76 99 01/07/21 12:35 36.4 C L 89 18 177/100 H 99 01/07/21 07:26 37.0 C 97 H 20 162/86 H 100 01/07/21 06:30 37.1 C 97 H 16 162/86 H 99 PG Care Time/CCT Total # of Minutes Spent Total Time Spent with Patient: Total time spent is greater than 50% in coordination of care (as documented) at patient's floor/unit and/or counseling patient: Coding Level of Care Code 13483 Inpt Consult Level [address] Diagnoses Ab[address] finding on CT scan R93.89 Nausea and vomiting R11.2 Gastroparesis K31.84
[2021-01-07] MEDS: METOCLOPRAMIDE HCL INJ 5 MG/ML 2 ML VIAL IV SCH (17:46)
[2021-01-07] MEDS: ONDANSETRON INJ 2 MG/ML 2 ML VIAL IV PRN (17:51)
[2021-01-07] MEDS ORDERED: INSULIN GLARGINE SOLOSTAR 100 UNITS/ML 3 ML PEN SC SCH (21:00)
[2021-01-08] MEDS: INSULIN HUMAN REGULAR SC SCH ×6 (00:36→22:05)
[2021-01-08] MEDS: CHECK CLONIDINE PATCH PLACEMENT SCH ×4 (00:36→23:11)
[2021-01-08] MEDS: ONDANSETRON INJ 2 MG/ML 2 ML VIAL IV PRN ×2 (00:40→08:35)
[2021-01-08] MEDS: METOCLOPRAMIDE HCL INJ 5 MG/ML 2 ML VIAL IV SCH ×4 (01:14→23:47)
[2021-01-08] MEDS: LABETALOL HCL IV 5 MG/ML 20ML IV PRN (03:28)
[2021-01-08] MEDS: CYCLOBENZAPRINE HCL 5 MG TAB PO PRN (04:46)
[2021-01-08] MEDS: HEPARIN SOD 5,000 UNIT/0.5 ML VIAL SQ SCH ×3 (05:38→22:05)
[2021-01-08 06:00] LABS: Hematocrit (blood only) 25.2 % (42-52); Hemoglobin 8.2 g/dL (14.0-18.0); Mean Corpuscular Hgb Conc 32.5 g/dL (32-36); Mean Platelet Volume 9.5 fL (7.4-10.4); Platelet Count 307 K/uL (130-400); RDW Coefficient of Variation 13.4 % (11.5-14.5); RDW Standard Deviation 43.9 fL (36.4-46.3); Red Blood Count 2.83 M/uL (4.7-6.1); White Blood Count 6.63 K/uL (4.8-10.8)
[2021-01-08 06:47] LABS: BUN Creatinine Ratio 10.6 (10-20); Calcium 7.7 mg/dl (8.5-10.1); Creatinine Clr Calc Pharmacy 28.6 ml/min; Est GFR (African American) 27.9 ml/min; Est GFR (Non-African American) 24.1 ml/min; Magnesium 1.4 mg/dl (1.8-2.4); Phosphorus 3.7 mg/dl (2.5-4.9); Potassium 3.3 mmol/L (3.5-5.1)
[2021-01-08] MEDS: ERTAPENEM SODIUM 500 MG in SODIUM CHLORIDE 0.9% 50 ML IV SCH (08:35)
[2021-01-08] MEDS: PANTOprazole 40 MG in SYRINGE 0 ML IV SCH ×2 (08:37→20:19)
--- NOTE | 2021-01-08 08:40 | Hospitalist Progress Note ---
Date of Service January 08, 2021 Assessment & Plan (1) Nausea & vomiting: (2) Abnormal finding on CT scan: Plan: This is a 55-year-old male, who presents with nausea and vomiting. 1. Nausea and vomiting: The patient has history of gastroparesis,and gastric pacemaker. The patient is also on chronic narcotic pain medications. The patient says he had diarrhea at home. CT of the abdomen and pelvis 1. Interval development of circumferential wall thickening of the distal esophagus suggestive of esophagitis. 2. Fluid-filled, mildly distended stomach. 3. No bowel obstruction. 4. Re-demonstration of a lytic lesion within left ninth rib suggestive of metastatic disease. 5. Mildly distended appendix which is similar in caliber to prior examination. No definite periappendiceal infiltration. The findings do not strongly suggest acute appendicitis however correlation with right lower quadrant pain is recommended. Currently nausea improved. Continue gentle fluids. Continue IV antiemetics. Surgery consulted re hardeep. appendicitis GI consulted re: esophagitis, gastric pacemaker, nausea/vomiting Plan for EGD early this week Reglan IV prior to meals Pt now tolerates PO diet and asking to have his diet advanced 2. Hypertensive urgency: Even after hydralazine and Lopressor in the ER, his blood pressure was still running high . Question of withdrawal from his pain medicine. The patient had nausea at home, but he states he was able to take his pills at home. Will continue his home blood pressure medications of clonidine patch, amlodipine. Will place him on IV labetalol p.r.n. and closely monitor. BP now seems improved Cont. to closely monitor 3. History of urine retention: CT reviewed, monitor urine output. Bladder scan. 4. Chronic kidney disease stage III: Possible acute kidney injury. His baseline creatinine used to be 2, but last admission on discharge it was 2.4 and on current admission 2.6. Now 2.8 Monitor renal function Given gentle fluids. 5. History of left ring finger wound: Last admission he received daptomycin and ceftriaxone, currently on Keflex, last dose 01/08/21. Seems to be healing well. 6. Type 1 diabetes: His recent HbA1c was 7.4%. Continue his long-acting insulin sliding scale. Monitor the blood sugars. 7. Non-small cell lung cancer, stage III, status post surgery, incomplete chemotherapy secondary to tolerance. Last admission,lesion noted on left 9th rib. Needs to follow up with PCP and oncologist. 8. History of seizure disorder, currently on Keppra 750 b.i.d. If not able to take p.o., then need to change to IV. 9. Chronic anemia: Hemoglobin 10.2, seems stable. Will follow the repeat labs . 10. History of tobacco abuse. 11. Chronic pain: Continue his home pain medications. 12. Depression: Continue Lexapro. 13. History of chronic obstructive pulmonary disease: Continue home inhalers. DVT prophylaxis: heparin subQ DISPOSITION: Closely monitor in the [facility] [employer]. Social service to help with discharge planning. Code: Full (3) Gastroparesis: Admission and Anticipated Discharge Date Admission Date: January 07, 2021 Subjective Patient seen in follow-up of abdominal pain, nausea vomiting Currently he is sitting up in bed, in no acute distress, so that he is feeling better, he is also more awake He was able to eat yesterday and today, without significant nausea and vomiting, he also said that he feels hungry and would like his diet advanced Seen by surgery and GI yesterday, plan for EGD earlier this week likely Saturday Patient denies any fevers, chest pain shortness of breath, says he has occasional chills Review of Systems Review of Systems: All systems reviewed & are unremarkable except as noted in Subjective Physical Exam Physical Exam: GENERAL: The patient is of moderate build, not in acute distress. HEENT: NC/AT, EOMI, Pupils equal, round and reactive to light. NECK: No JVD, no neck masses. CARDIOVASCULAR: S1 and S2 heard. RRR. No murmurs. RESPIRATORY: Normal AP diameter. No accessory muscle use. No wheezing, no crackles. ABDOMEN: Soft, bowel sounds present. mild diffuse abdominal tenderness to palpation (no guarding). No distention. NEURO: Alert and oriented x3. Answering questions appropriately. No facial droop. Speech is clear. Moves extremities. EXTREMITIES: No edema, no erythema seen. Results & Data Results & Data ([facility]) Vital Signs (Past 12 Hours) Vital Signs Temp Pulse Pulse Resp BP Pulse Ox 01/08/21 08:06 37.4 C 78 19 153/89 H 98 01/08/21 07:43 81 01/08/21 05:05 108 H 01/08/21 03:38 37.0 C 89 20 210/112 H 99 01/08/21 03:23 88 18 197/107 H 100 01/07/21 23:55 36.5 C 84 20 160/89 H 97 Laboratory Results 01/08/21 01/08/21 01/08/21 Range/Units 07:40 05:45 05:45 WBC 6.63 (4.8-10.8) K/uL RBC 2.83 L (4.7-6.1) M/uL Hgb 8.2 L (14.0-18.0) g/dL Hct 25.2 L (42-52) % MCV 89.0 (80-100) fL MCH 29.0 (25-34) pg MCHC 32.5 (32-36) g/dL RDW Std Deviation 43.9 (36.4-46.3) fL RDW Coeff of Rik 13.4 (11.5-14.5) % Plt Count 307 (130-400) K/uL MPV 9.5 (7.4-10.4) fL Sodium 136 (136-145) mmol/L Potassium 3.3 L D (3.5-5.1) mmol/L Chloride 104 (98-107) mmol/L Carbon Dioxide 23 (21-32) mmol/L Anion Gap 9.0 (3-11) BUN 30 H (7-18) mg/dl Creatinine 2.82 H (0.6-1.4) mg/dl Est Cr Clr Drug Dosing 28.6 ml/min Est GFR ( Amer) 27.9 ml/min Est GFR (Non-Af Amer) 24.1 ml/min BUN/Creatinine Ratio 10.6 (10-20) Glucose 150 H (70-99) mg/dl POC Glucose 124 H (70-99) mg/dl Calcium 7.7 L D (8.5-10.1) mg/dl Phosphorus 3.7 (2.5-4.9) mg/dl Magnesium 1.4 L (1.8-2.4) mg/dl 01/08/21 01/08/21 01/07/21 Range/Units 05:34 00:30 16:21 WBC (4.8-10.8) K/uL RBC (4.7-6.1) M/uL Hgb (14.0-18.0) g/dL Hct (42-52) % MCV (80-100) fL MCH (25-34) pg MCHC (32-36) g/dL RDW Std Deviation (36.4-46.3) fL RDW Coeff of Rik (11.5-14.5) % Plt Count (130-400) K/uL MPV (7.4-10.4) fL Sodium (136-145) mmol/L Potassium (3.5-5.1) mmol/L Chloride (98-107) mmol/L Carbon Dioxide (21-32) mmol/L Anion Gap (3-11) BUN (7-18) mg/dl Creatinine (0.6-1.4) mg/dl Est Cr Clr Drug Dosing ml/min Est GFR ( Amer) ml/min Est GFR (Non-Af Amer) ml/min BUN/Creatinine Ratio (10-20) Glucose (70-99) mg/dl POC Glucose 159 H 146 H 149 H (70-99) mg/dl Calcium (8.5-10.1) mg/dl Phosphorus (2.5-4.9) mg/dl Magnesium (1.8-2.4) mg/dl 01/07/21 01/07/21 Range/Units 11:10 09:53 WBC (4.8-10.8) K/uL RBC (4.7-6.1) M/uL Hgb (14.0-18.0) g/dL Hct (42-52) % MCV (80-100) fL MCH (25-34) pg MCHC (32-36) g/dL RDW Std Deviation (36.4-46.3) fL RDW Coeff of Rik (11.5-14.5) % Plt Count (130-400) K/uL MPV (7.4-10.4) fL Sodium (136-145) mmol/L Potassium (3.5-5.1) mmol/L Chloride (98-107) mmol/L Carbon Dioxide (21-32) mmol/L Anion Gap (3-11) BUN (7-18) mg/dl Creatinine (0.6-1.4) mg/dl Est Cr Clr Drug Dosing ml/min Est GFR ( Amer) ml/min Est GFR (Non-Af Amer) ml/min BUN/Creatinine Ratio (10-20) Glucose (70-99) mg/dl POC Glucose 224 H 223 H (70-99) mg/dl Calcium (8.5-10.1) mg/dl Phosphorus (2.5-4.9) mg/dl Magnesium (1.8-2.4) mg/dl Medications Administered Current Inpatient Medications Acetaminophen (Acetaminophen 325 Mg Tab) 650 mg PO Q4H PRN PRN Reason: Pain or Fever Stop: 02/06/21 06:18 Last Admin: 01/07/21 12:09 Dose: 650 mg Documented by: Albuterol (Albuterol Hfa 8 Gm Inhaler) 2 puffs INH Q4R PRN PRN Reason: Shortness Of Breath Stop: 02/06/21 06:18 Amlodipine Besylate (Amlodipine Besylate 5 Mg Tab) 5 mg PO QAM DAMIR Stop: 02/06/21 08:59 Last Admin: 01/07/21 09:54 Dose: Not Given Documented by: Clonidine HCl (Clonidine Hcl 0.2 Mg/24 Hr Transderm Sys) 1 patch TD Sa@0900 [facility] Stop: 02/06/21 08:59 Last Admin: 01/07/21 09:57 Dose: 1 patch Documented by: Cyclobenzaprine HCl (Cyclobenzaprine Hcl 5 Mg Tab) 5 mg PO TID PRN PRN Reason: Muscle Spasm Stop: 02/06/21 06:18 Last Admin: 01/08/21 04:46 Dose: 5 mg Documented by: Epinephrine HCl (Epinephrine Inj 1 Mg/Ml Amp) 0.3 mg IM Q3H PRN PRN Reason: Allergic Reaction Stop: 02/06/21 06:25 Ertapenem (Ertapenem Consult Active) 1 ea N/A UD PRN PRN Reason: Consult Stop: 02/06/21 11:25 Escitalopram Oxalate (Escitalopram Oxalate 10 Mg Tab) 10 mg PO DAILY [facility] Stop: 02/06/21 08:59 Last Admin: 01/07/21 09:54 Dose: Not Given Documented by: Fluticasone/Vilanterol (Fluticasone/Vilanterol 100/25mcg 14 Puffs/Inhaler) 1 puffs INH DAILY [facility]; Protocol Stop: 02/06/21 08:59 Last Admin: 01/07/21 09:41 Dose: 1 puffs Documented by: Gabapentin (Gabapentin 100 Mg Cap) 100 mg PO TID DAMIR Stop: 02/06/21 08:59 Last Admin: 01/07/21 21:54 Dose: 100 mg Documented by: Heparin Sodium (Porcine) (Heparin Sod 5,000 Unit/0.5 Ml Vial) 5,000 units SQ Q8 DAMIR Stop: 02/06/21 06:59 Last Admin: 01/08/21 05:38 Dose: 5,000 units Documented by: Sodium Chloride (Nss 1000ml) 1,000 mls @ 75 mls/hr IV .[id number] DAMIR Stop: 02/06/21 06:18 Last Admin: 01/07/21 21:52 Dose: 75 mls/hr Documented by: Ertapenem 500 mg/ Sodium (Chloride) 55 mls @ 110 mls/hr IV DAILY [facility]; Protocol Stop: 01/17/21 08:59 Last Infusion: 01/07/21 10:40 Dose: Infused Documented by: Pantoprazole Sodium 40 mg/ (Syringe) 10 mls @ 5 mls/min IV BID DAMIR Stop: 02/06/21 08:59 Last Admin: 01/07/21 22:13 Dose: 5 mls/min Documented by: Magnesium Sulfate/Dextrose (Magnesium Sulfate / D5w) 1 gm in 100 mls @ 50 mls/hr IV Q2H [facility] Stop: 01/08/21 10:36 Insulin Human Regular (Insulin Human Regular) 0 units SC Q6 [facility]; Protocol Stop: 02/06/21 07:59 Last Admin: 01/08/21 05:37 Dose: 2 units Documented by: Labetalol HCl (Labetalol Hcl Iv 5 Mg/Ml 20ml) 10 mg IV Q4H PRN PRN Reason: Hypertension Stop: 02/06/21 06:18 Last Admin: 01/08/21 03:28 Dose: 10 mg Documented by: Lactobacillus Acidoph/Casei/Rhamnos (Advanced Probiotic 1250 Mg Capsule) 2 cap PO DAILY DAM[facility] Stop: 02/06/21 08:59 Last Admin: 01/07/21 09:55 Dose: Not Given Documented by: Levetiracetam (Levetiracetam 250 Mg Tab) 750 mg PO BID [facility] Stop: 02/06/21 08:59 Last Admin: 01/07/21 21:54 Dose: 750 mg Documented by: Magnesium Oxide (Magnesium Oxide 400 Mg Tab) 400 mg PO BID [facility] Stop: 02/06/21 08:59 Last Admin: 01/07/21 21:55 Dose: 400 mg Documented by: Metoclopramide HCl (Metoclopramide Hcl Inj 5 Mg/Ml 2 Ml Vial) 10 mg IV Q8H [facility] Stop: 02/06/21 16:44 Last Admin: 01/08/21 01:14 Dose: 10 mg Documented by: Miscellaneous (Remove Clonidine Patch) 1 ea N/A CQWK [facility] Stop: 02/06/21 08:58 Last Admin: 01/07/21 09:46 Dose: 1 ea Documented by: Miscellaneous (Check Clonidine Patch Placement) 1 ea N/A QS [facility] Stop: 02/06/21 07:59 Last Admin: 01/08/21 00:36 Dose: 1 ea Documented by: Miscellaneous Information (Pharmacy Glycemic Mgmt Consult) 1 ea N/A UD PRN PRN Reason: Consult Stop: 02/06/21 07:44 Morphine Sulfate (Morphine Sulfate Cr 15 Mg Tabcr) 30 mg PO BID [facility] Stop: 01/21/21 08:59 Last Admin: 01/07/21 22:01 Dose: 30 mg Documented by: Multivitamins (Multivitamin Tab) 1 tab PO QAM [facility] Stop: 02/06/21 08:59 Last Admin: 01/07/21 09:56 Dose: Not Given Documented by: Nitroglycerin (Nitroglycerin Sl 0.4 Mg/Tab Tab) 0.4 mg SL UD PRN PRN Reason: Chest Pain Stop: 02/06/21 06:18 Ondansetron HCl (Ondansetron Inj 2 Mg/Ml 2 Ml Vial) 4 mg IV Q6H PRN PRN Reason: Nausea Stop: 02/06/21 06:18 Last Admin: 01/08/21 00:40 Dose: 4 mg Documented by: Ondansetron HCl (Ondansetron 8mg Od Tab) 8 mg PO Q8H PRN PRN Reason: Nausea Stop: 02/06/21 06:18 Oxycodone HCl (Oxycodone Hcl Ir 5 Mg Tab (Immediate Release)) 5 mg PO Q4H PRN PRN Reason: severe pain Stop: 01/21/21 06:18 Last Admin: 01/07/21 14:31 Dose: 5 mg Documented by: Pantoprazole Sodium (Pantoprazole 40 Mg Tab) 40 mg PO QAM DAMIR Stop: 02/06/21 08:59 Polyethylene Glycol (Polyethylene (Miralax) 17 Gm Pack) 17 gm PO DAILY PRN PRN Reason: Constipation Stop: 02/06/21 06:18 Potassium Chloride (Potassium Chloride Crtab 20 Meq Tabcr) 40 meq PO NOW STA Stop: 01/08/21 08:37 (1) Nausea & vomiting Vomiting Intractability: intractable Vomiting type: unspecified Qualified Code(s): R11.2 - Nausea with vomiting, unspecified
[2021-01-08] MEDS ORDERED: POTASSIUM CHLORIDE CRTAB 20 MEQ TABCR PO ONE (09:00)
[2021-01-08] MEDS: ADVANCED PROBIOTIC 1250 MG CAPSULE PO SCH (09:44)
[2021-01-08] MEDS: levETIRAcetam 250 MG TAB PO SCH ×2 (09:44→20:19)
[2021-01-08] MEDS: amLODIPine BESYLATE 5 MG TAB PO SCH (09:45)
[2021-01-08] MEDS: ESCITALOPRAM OXALATE 10 MG TAB PO SCH (09:45)
[2021-01-08] MEDS: MULTIVITAMIN TAB PO SCH (09:45)
[2021-01-08] MEDS: MAGNESIUM OXIDE 400 MG TAB PO SCH ×2 (09:45→20:18)
[2021-01-08] MEDS: FLUTICASONE/VILANTEROL 100/25MCG 14 PUFFS/INHALER INH SCH (09:46)
[2021-01-08] MEDS: GABAPENTIN 100 MG CAP PO SCH ×3 (09:46→20:18)
[2021-01-08] MEDS: MoRPHine SULFATE CR 15 MG TABCR PO SCH ×2 (09:47→20:18)
[2021-01-08] MEDS: MAGNESIUM SULFATE / D5W 1 GM/100 ML BAG IV SCH ×2 (10:55→12:04)
--- NOTE | 2021-01-08 10:56 | Surgery Progress Note ---
Date of Service January 08, 2021 Assessment & Plan (1) Nausea & vomiting: (2) Abnormal finding on CT scan: Plan: 55-year-old gentleman with nausea and vomiting. He has his chronic abdominal pain, which she states is no worse than normal. He has no focal tenderness in the right lower quadrant. He is set to undergo EGD to evaluate his possible esophagitis and gastric pacemaker in the next day or so. White blood cell count normal. No evidence of appendicitis. We will continue to follow. Admission and Anticipated Discharge Date Admission Date: January 07, 2021 Subjective He is more awake today. He does complain of his normal chronic abdominal pain. He again states that it is not any worse than normal. He denies any specific r ight-sided pain. He denies fevers and chills. He is still having nausea and vomited this morning. Physical Exam Constitutional: WD/WN, vitals as above Gastrointestinal (Abdomen): Inspection/Auscultation: abdomen normal to inspection; abdomen not distended Percussion/Palpation: + abdomen tender (Mild diffuse tenderness) and abdomen soft; no guarding and abdomen not rigid Musculoskeletal: Extremities: no cyanosis and no clubbing Skin: no rashes, warm and dry Psychiatric: A+Ox3, euthymic affect Results & Data ([facility]) Vital Signs (Past 12 Hours) Vital Signs Temp Pulse Pulse Resp BP Pulse Ox 01/08/21 08:06 37.4 C 78 19 153/89 H 98 01/08/21 07:43 81 01/08/21 05:05 108 H 01/08/21 03:38 37.0 C 89 20 210/112 H 99 01/08/21 03:23 88 18 197/107 H 100 01/07/21 23:55 36.5 C 84 20 160/89 H 97 Laboratory Results 01/08/21 01/08/21 01/08/21 Range/Units 07:40 05:45 05:45 WBC 6.63 (4.8-10.8) K/uL RBC 2.83 L (4.7-6.1) M/uL Hgb 8.2 L (14.0-18.0) g/dL Hct 25.2 L (42-52) % MCV 89.0 (80-100) fL MCH 29.0 (25-34) pg MCHC 32.5 (32-36) g/dL RDW Std Deviation 43.9 (36.4-46.3) fL RDW Coeff of Rik 13.4 (11.5-14.5) % Plt Count 307 (130-400) K/uL MPV 9.5 (7.4-10.4) fL Sodium 136 (136-145) mmol/L Potassium 3.3 L D (3.5-5.1) mmol/L Chloride 104 (98-107) mmol/L Carbon Dioxide 23 (21-32) mmol/L Anion Gap 9.0 (3-11) BUN 30 H (7-18) mg/dl Creatinine 2.82 H (0.6-1.4) mg/dl Est Cr Clr Drug Dosing 28.6 ml/min Est GFR ( Amer) 27.9 ml/min Est GFR (Non-Af Amer) 24.1 ml/min BUN/Creatinine Ratio 10.6 (10-20) Glucose 150 H (70-99) mg/dl POC Glucose 124 H (70-99) mg/dl Calcium 7.7 L D (8.5-10.1) mg/dl Phosphorus 3.7 (2.5-4.9) mg/dl Magnesium 1.4 L (1.8-2.4) mg/dl 01/08/21 01/08/21 01/07/21 Range/Units 05:34 00:30 16:21 WBC (4.8-10.8) K/uL RBC (4.7-6.1) M/uL Hgb (14.0-18.0) g/dL Hct (42-52) % MCV (80-100) fL MCH (25-34) pg MCHC (32-36) g/dL RDW Std Deviation (36.4-46.3) fL RDW Coeff of Rik (11.5-14.5) % Plt Count (130-400) K/uL MPV (7.4-10.4) fL Sodium (136-145) mmol/L Potassium (3.5-5.1) mmol/L Chloride (98-107) mmol/L Carbon Dioxide (21-32) mmol/L Anion Gap (3-11) BUN (7-18) mg/dl Creatinine (0.6-1.4) mg/dl Est Cr Clr Drug Dosing ml/min Est GFR ( Amer) ml/min Est GFR (Non-Af Amer) ml/min BUN/Creatinine Ratio (10-20) Glucose (70-99) mg/dl POC Glucose 159 H 146 H 149 H (70-99) mg/dl Calcium (8.5-10.1) mg/dl Phosphorus (2.5-4.9) mg/dl Magnesium (1.8-2.4) mg/dl 01/07/21 Range/Units 11:10 WBC (4.8-10.8) K/uL RBC (4.7-6.1) M/uL Hgb (14.0-18.0) g/dL Hct (42-52) % MCV (80-100) fL MCH (25-34) pg MCHC (32-36) g/dL RDW Std Deviation (36.4-46.3) fL RDW Coeff of Rik (11.5-14.5) % Plt Count (130-400) K/uL MPV (7.4-10.4) fL Sodium (136-145) mmol/L Potassium (3.5-5.1) mmol/L Chloride (98-107) mmol/L Carbon Dioxide (21-32) mmol/L Anion Gap (3-11) BUN (7-18) mg/dl Creatinine (0.6-1.4) mg/dl Est Cr Clr Drug Dosing ml/min Est GFR ( Amer) ml/min Est GFR (Non-Af Amer) ml/min BUN/Creatinine Ratio (10-20) Glucose (70-99) mg/dl POC Glucose 224 H (70-99) mg/dl Calcium (8.5-10.1) mg/dl Phosphorus (2.5-4.9) mg/dl Magnesium (1.8-2.4) mg/dl (1) Nausea & vomiting Vomiting Intractability: intractable Vomiting type: unspecified Qualified Code(s): R11.2 - Nausea with vomiting, unspecified
[2021-01-08 14:41] LABS: Appearance Urine Clear (Clear); Bacteria Urine Automated Negative (Negative); Bilirubin Urine Negative (Negative); Blood Urine Trace (Negative); Color Urine Yellow; Epithelial Cell Urine Auto >30 /lpf (0-5); Glucose Urine UA 1+ (Negative); Ketones Urine Negative (Negative); Leukocyte Esterase Urine Negative (Negative); Nitrite Urine Negative (Negative); Protein Urine 4+ (Negative); RBC Urine Automated 0-4 /hpf (0-4); Specific Gravity Urine 1.015 (1.000-1.030); Urobilinogen Urine Negative (Negative)
[2021-01-08] MEDS: SODIUM CHLORIDE 0.9% 1000ML 1,000 ML IV SCH (14:58)
--- NOTE | 2021-01-08 15:21 | Pharmacy Report ---
Pharmacy Glycemic Short Note 2 - Date of Service January 08, 2021 - Glycemic Short BSG Results (Last 24 hours): 01/07/21 01/08/21 01/08/21 16:21 00:30 05:34 Glucose POC Glucose 149 H 146 H 159 H 01/08/21 01/08/21 01/08/21 05:45 07:40 11:31 Glucose 150 H POC Glucose 124 H 221 H OUTPATIENT ANTIDIABETIC REGIMEN: * Lantus 7 units HS+ Humalog ASSESSMENT: * Patient's BSGs yesterday were [phone] * Fasting today was 124 mg/dL. * Patient received 9 units of regular insulin. * Patient now has a diet ordered. Historically Lantus + Novolog is difficult to manage with patient. * Will trial a mix of scheduled regular that has both basal and correction factor built in then additional regular insulin for carbohydrate coverage. Background * Mr Hamilton is a 55 y/o M with T2DM who presents with with N/V. He is currently NPO. * Per previous visit, scheduled regular insulin q 6 hours works well for patient when NPO. Since it is sliding, it functions as both basal and correctional. * Since BSG > 300 mg/dL currently, will give small insulin bolus (3 units IV) to produce rapid decrease in BSG. PLAN FOR INPATIENT GLYCEMIC CONTROL: * Basal insulin * Regular insulin q6 (0 units if BSG < 110, 1 unit if BSG 110-140, 2 units if BSG 141-200 mg/dL, 3 units if BSG > 200) * Bolus insulin * Regular insulin carbohydrate coverage 1 unit per 20 grams of carbohydrates consumed PLAN FOR DISCHARGE: * close follow up with [facility]
[2021-01-08] MEDS ORDERED: INSULIN HUMAN REGULAR SC SCH (16:30)
[2021-01-08] MEDS: oxyCODONE HCL IR 5 MG TAB (IMMEDIATE RELEASE) PO PRN (17:45)
[2021-01-08] MEDS ORDERED: Nursing to Pharmacy Communication SCH (22:45)
[2021-01-09] MEDS: LABETALOL HCL IV 5 MG/ML 20ML IV PRN ×2 (01:00→08:13)
[2021-01-09] MEDS: CARBOHYDRATES FOR HYPOGLYCEMIA PO PRN ×2 (01:07→01:22)
[2021-01-09] MEDS ORDERED: GLUCOSE 40% GEL 15 GM TUBE PO PRN (01:30)
[2021-01-09] MEDS ORDERED: GLUCOSE 10 TABS/TUBE PO PRN (01:30)
[2021-01-09] MEDS ORDERED: GLUCAGON FOR INJ 1 MG VIAL IM PRN (01:30)
[2021-01-09] MEDS ORDERED: DEXTROSE 50% 50 ML SYRINGE IV PRN (01:30)
[2021-01-09] MEDS: SODIUM CHLORIDE 0.9% 1000ML 1,000 ML IV SCH ×2 (04:41→18:42)
[2021-01-09] MEDS: HEPARIN SOD 5,000 UNIT/0.5 ML VIAL SQ SCH ×3 (05:04→20:10)
[2021-01-09] MEDS: INSULIN HUMAN REGULAR SC SCH ×8 (05:29→23:50)
[2021-01-09 06:34] LABS: Hematocrit (blood only) 25.6 % (42-52); Hemoglobin 8.4 g/dL (14.0-18.0); Mean Corpuscular Hemoglobin 28.8 pg (25-34); Mean Corpuscular Hgb Conc 32.8 g/dL (32-36); Mean Corpuscular Volume 87.7 fL (80-100); Platelet Count 315 K/uL (130-400); RDW Coefficient of Variation 13.6 % (11.5-14.5); RDW Standard Deviation 43.7 fL (36.4-46.3); Red Blood Count 2.92 M/uL (4.7-6.1); White Blood Count 5.93 K/uL (4.8-10.8)
[2021-01-09 07:16] LABS: BUN Creatinine Ratio 9.9 (10-20); Calcium 7.6 mg/dl (8.5-10.1); Creatinine Clr Calc Pharmacy 26.6 ml/min; Est GFR (African American) 25.5 ml/min; Phosphorus 5.2 mg/dl (2.5-4.9); Potassium 3.9 mmol/L (3.5-5.1)
[2021-01-09 07:36] LABS: Beta-Hydroxybutyrate 0.69 mg/dl (0.2-2.81)
[2021-01-09] MEDS: ERTAPENEM SODIUM 500 MG in SODIUM CHLORIDE 0.9% 50 ML IV SCH (07:59)
[2021-01-09] MEDS: CHECK CLONIDINE PATCH PLACEMENT SCH ×3 (08:00→21:42)
[2021-01-09] MEDS: PANTOprazole 40 MG in SYRINGE 0 ML IV SCH ×2 (08:00→20:11)
[2021-01-09] MEDS: METOCLOPRAMIDE HCL INJ 5 MG/ML 2 ML VIAL IV SCH ×3 (08:01→23:50)
[2021-01-09] MEDS: ADVANCED PROBIOTIC 1250 MG CAPSULE PO SCH (08:01)
[2021-01-09] MEDS: amLODIPine BESYLATE 5 MG TAB PO SCH (08:01)
[2021-01-09] MEDS: MULTIVITAMIN TAB PO SCH (08:01)
[2021-01-09] MEDS: levETIRAcetam 250 MG TAB PO SCH ×2 (08:01→20:10)
[2021-01-09] MEDS: MAGNESIUM OXIDE 400 MG TAB PO SCH ×2 (08:02→20:10)
[2021-01-09] MEDS: ESCITALOPRAM OXALATE 10 MG TAB PO SCH (08:02)
[2021-01-09] MEDS: GABAPENTIN 100 MG CAP PO SCH ×3 (08:02→20:10)
[2021-01-09] MEDS: FLUTICASONE/VILANTEROL 100/25MCG 14 PUFFS/INHALER INH SCH (08:03)
[2021-01-09] MEDS: MoRPHine SULFATE CR 15 MG TABCR PO SCH ×2 (08:05→20:10)
--- NOTE | 2021-01-09 08:36 | Hospitalist Progress Note ---
Date of Service January 09, 2021 Assessment & Plan (1) Nausea & vomiting: (2) Abnormal finding on CT scan: Plan: This is a 55-year-old male, who presents with nausea and vomiting. 1. Nausea and vomiting: The patient has history of gastroparesis,and gastric pacemaker. The patient is also on chronic narcotic pain medications. The patient says he had diarrhea at home. CT of the abdomen and pelvis 1. Interval development of circumferential wall thickening of the distal esophagus suggestive of esophagitis. 2. Fluid-filled, mildly distended stomach. 3. No bowel obstruction. 4. Re-demonstration of a lytic lesion within left ninth rib suggestive of metastatic disease. 5. Mildly distended appendix which is similar in caliber to prior examination. No definite periappendiceal infiltration. The findings do not strongly suggest acute appendicitis however correlation with right lower quadrant pain is recommended. Currently nausea improved. Continue gentle fluids. Continue IV antiemetics. Surgery consulted re poss. appendicitis GI consulted re: esophagitis, gastric pacemaker, nausea/vomiting Plan for EGD 01/09/21, NPO after MN Reglan IV prior to meals Pt now tolerates PO diet - cont. low fiber, low fat, npo after MN 2. Hypertensive urgency: Even after hydralazine and Lopressor in the ER, his blood pressure was still running high . Question of withdrawal from his pain medicine. The patient had nausea at home, but he states he was able to take his pills at home. Will continue his home blood pressure medications of clonidine patch, amlodipine. Will place him on IV labetalol p.r.n. and closely monitor. BP now seems improved Cont. to closely monitor 3. History of urine retention: CT reviewed, monitor urine output. Bladder scan. 4. Chronic kidney disease stage III: Possible acute kidney injury. His baseline creatinine used to be 2, but last admission on discharge it was 2.4 and on current admission 2.6. Now 3 Monitor renal function Given gentle fluids. 5. History of left ring finger wound: Last admission he received daptomycin and ceftriaxone, currently on Keflex, last dose 01/08/21. Seems to be healing well. 6. Type 1 diabetes: His recent HbA1c was 7.4%. Continue his long-acting insulin sliding scale. Monitor the blood sugars. 7. Non-small cell lung cancer, stage III, status post surgery, incomplete chemotherapy secondary to tolerance. Last admission,lesion noted on left 9th rib. Needs to follow up with PCP and oncologist. 8. History of seizure disorder, currently on Keppra 750 b.i.d. If not able to take p.o., then need to change to IV. 9. Chronic anemia: Hemoglobin 10.2, seems stable. Will follow the repeat labs. 10. History of tobacco abuse. 11. Chronic pain: Continue his home pain medications. 12. Depression: Continue Lexapro. 13. History of chronic obstructive pulmonary disease: Continue home inhalers. DVT prophylaxis: heparin subQ DISPOSITION: Closely monitor in the [facility] service to help with discharge planning. Code: Full (3) Gastroparesis: Admission and Anticipated Discharge Date Admission Date: January 07, 2021 Subjective Patient seen in follow-up of abdominal pain, nausea vomiting Currently he is sitting up in bed, in no acute distress He is alert oriented, answering questions appropriately Reports he was eating yesterday, but had some nausea vomiting at night Seen by surgery and GI yesterday, plan for EGD tomorrow (Saturday) Patient denies any fevers, chest pain shortness of breath, says he has occasional chills Review of Systems Review of Systems: All systems reviewed & are unremarkable except as noted in Subjective Physical Exam Physical Exam: GENERAL: The patient is of moderate build, not in acute distress. HEENT: NC/AT, EOMI, Pupils equal, round and reactive to light. NECK: No JVD, no neck masses. CARDIOVASCULAR: S1 and S2 heard. RRR. No murmurs. RESPIRATORY: Normal AP diameter. No accessory muscle use. No wheezing, no crackles. ABDOMEN: Soft, bowel sounds present. mild diffuse abdominal tenderness to palpation (no guarding). No distention. NEURO: Alert and oriented x3. Answering questions appropriately. No facial droop. Speech is clear. Moves extremities. EXTREMITIES: No edema, no erythema seen. Results & Data Results & Data ([facility]) Vital Signs (Past 12 Hours) Vital Signs Temp Pulse Pulse Resp BP Pulse Ox 01/09/21 07:03 36.6 C 76 20 181/93 H 98 01/09/21 04:12 36.3 C L 73 18 156/84 H 98 01/09/21 01:57 71 174/104 H 01/09/21 00:57 78 180/101 H 01/08/21 23:43 36.5 C 78 20 195/110 H 98 01/08/21 22:19 75 Laboratory Results 01/09/21 01/09/21 01/09/21 Range/Units 05:52 05:52 05:10 WBC 5.93 (4.8-10.8) K/uL RBC 2.92 L (4.7-6.1) M/uL Hgb 8.4 L (14.0-18.0) g/dL Hct 25.6 L (42-52) % MCV 87.7 (80-100) fL MCH 28.8 (25-34) pg MCHC 32.8 (32-36) g/dL RDW Std Deviation 43.7 (36.4-46.3) fL RDW Coeff of Rik 13.6 (11.5-14.5) % Plt Count 315 (130-400) K/uL MPV 10.0 (7.4-10.4) fL Sodium 137 (136-145) mmol/L Potassium 3.9 D (3.5-5.1) mmol/L Chloride 104 (98-107) mmol/L Carbon Dioxide 23 (21-32) mmol/L Anion Gap 10.0 (3-11) BUN 30 H (7-18) mg/dl Creatinine 3.04 H (0.6-1.4) mg/dl Est Cr Clr Drug Dosing 26.6 ml/min Est GFR ( Amer) 25.5 ml/min Est GFR (Non-Af Amer) 22.0 ml/min BUN/Creatinine Ratio 9.9 L (10-20) Glucose 345 H* (70-99) mg/dl POC Glucose 344 H* (70-99) mg/dl Calcium 7.6 L (8.5-10.1) mg/dl Phosphorus 5.2 H D (2.5-4.9) mg/dl Magnesium 2.0 (1.8-2.4) mg/dl Beta-Hydroxybutyric Acd 0.69 (0.2-2.81) mg/dl Urine Color Urine Appearance (Clear) Urine pH (4.5-7.5) Ur Specific [place] (1.000-1.030) Urine Protein (Negative) Urine Glucose (UA) (Negative) Urine Ketones (Negative) Urine Blood (Negative) Urine Nitrite (Negative) Urine Bilirubin (Negative) Urine Urobilinogen (Negative) Ur Leukocyte Esterase (Negative) Urine WBC (Auto) (0-5) /hpf Urine RBC (Auto) (0-4) /hpf U Hyaline Cast (Auto) (0-5) /lpf U Epithel Cells (Auto) (0-5) /lpf Urine Bacteria (Auto) (Negative) 01/09/21 01/09/21 01/09/21 Range/Units 05:08 01:53 01:37 WBC (4.8-10.8) K/uL RBC (4.7-6.1) M/uL Hgb (14.0-18.0) g/dL Hct (42-52) % MCV (80-100) fL MCH (25-34) pg MCHC (32-36) g/dL RDW Std Deviation (36.4-46.3) fL RDW Coeff of Rik (11.5-14.5) % Plt Count (130-400) K/uL MPV (7.4-10.4) fL Sodium (136-145) mmol/L Potassium (3.5-5.1) mmol/L Chloride (98-107) mmol/L Carbon Dioxide (21-32) mmol/L Anion Gap (3-11) BUN (7-18) mg/dl Creatinine (0.6-1.4) mg/dl Est Cr Clr Drug Dosing ml/min Est GFR ( Amer) ml/min Est GFR (Non-Af Amer) ml/min BUN/Creatinine Ratio (10-20) Glucose (70-99) mg/dl POC Glucose 349 H* 80 70 (70-99) mg/dl Calcium (8.5-10.1) mg/dl Phosphorus (2.5-4.9) mg/dl Magnesium (1.8-2.4) mg/dl Beta-Hydroxybutyric Acd (0.2-2.81) mg/dl Urine Color Urine Appearance (Clear) Urine pH (4.5-7.5) Ur Specific [place] (1.000-1.030) Urine Protein (Negative) Urine Glucose (UA) (Negative) Urine Ketones (Negative) Urine Blood (Negative) Urine Nitrite (Negative) Urine Bilirubin (Negative) Urine Urobilinogen (Negative) Ur Leukocyte Esterase (Negative) Urine WBC (Auto) (0-5) /hpf Urine RBC (Auto) (0-4) /hpf U Hyaline Cast (Auto) (0-5) /lpf U Epithel Cells (Auto) (0-5) /lpf Urine Bacteria (Auto) (Negative) 01/09/21 01/09/21 01/08/21 Range/Units 01:23 01:07 21:50 WBC (4.8-10.8) K/uL RBC (4.7-6.1) M/uL Hgb (14.0-18.0) g/dL Hct (42-52) % MCV (80-100) fL MCH (25-34) pg MCHC (32-36) g/dL RDW Std Deviation (36.4-46.3) fL RDW Coeff of Rik (11.5-14.5) % Plt Count (130-400) K/uL MPV (7.4-10.4) fL Sodium (136-145) mmol/L Potassium (3.5-5.1) mmol/L Chloride (98-107) mmol/L Carbon Dioxide (21-32) mmol/L Anion Gap (3-11) BUN (7-18) mg/dl Creatinine (0.6-1.4) mg/dl Est Cr Clr Drug Dosing ml/min Est GFR ( Amer) ml/min Est GFR (Non-Af Amer) ml/min BUN/Creatinine Ratio (10-20) Glucose (70-99) mg/dl POC Glucose 62 L* 50 L* 203 H (70-99) mg/dl Calcium (8.5-10.1) mg/dl Phosphorus (2.5-4.9) mg/dl Magnesium (1.8-2.4) mg/dl Beta-Hydroxybutyric Acd (0.2-2.81) mg/dl Urine Color Urine Appearance (Clear) Urine pH (4.5-7.5) Ur Specific [place] (1.000-1.030) Urine Protein (Negative) Urine Glucose (UA) (Negative) Urine Ketones (Negative) Urine Blood (Negative) Urine Nitrite (Negative) Urine Bilirubin (Negative) Urine Urobilinogen (Negative) Ur Leukocyte Esterase (Negative) Urine WBC (Auto) (0-5) /hpf Urine RBC (Auto) (0-4) /hpf U Hyaline Cast (Auto) (0-5) /lpf U Epithel Cells (Auto) (0-5) /lpf Urine Bacteria (Auto) (Negative) 01/08/21 01/08/21 01/08/21 Range/Units 16:33 14:27 11:31 WBC (4.8-10.8) K/uL RBC (4.7-6.1) M/uL Hgb (14.0-18.0) g/dL Hct (42-52) % MCV (80-100) fL MCH (25-34) pg MCHC (32-36) g/dL RDW Std Deviation (36.4-46.3) fL RDW Coeff of Rik (11.5-14.5) % Plt Count (130-400) K/uL MPV (7.4-10.4) fL Sodium (136-145) mmol/L Potassium (3.5-5.1) mmol/L Chloride (98-107) mmol/L Carbon Dioxide (21-32) mmol/L Anion Gap (3-11) BUN (7-18) mg/dl Creatinine (0.6-1.4) mg/dl Est Cr Clr Drug Dosing ml/min Est GFR ( Amer) ml/min Est GFR (Non-Af Amer) ml/min BUN/Creatinine Ratio (10-20) Glucose (70-99) mg/dl POC Glucose 278 H 221 H (70-99) mg/dl Calcium (8.5-10.1) mg/dl Phosphorus (2.5-4.9) mg/dl Magnesium (1.8-2.4) mg/dl Beta-Hydroxybutyric Acd (0.2-2.81) mg/dl Urine Color Yellow Urine Appearance Clear (Clear) Urine pH 6.0 (4.5-7.5) Ur Specific [place] 1.015 (1.000-1.030) Urine Protein 4+ H (Negative) Urine Glucose (UA) 1+ H (Negative) Urine Ketones Negative (Negative) Urine Blood Trace H (Negative) Urine Nitrite Negative (Negative) Urine Bilirubin Negative (Negative) Urine Urobilinogen Negative (Negative) Ur Leukocyte Esterase Negative (Negative) Urine WBC (Auto) 1-5 (0-5) /hpf Urine RBC (Auto) 0-4 (0-4) /hpf U Hyaline Cast (Auto) 5-10 H (0-5) /lpf U Epithel Cells (Auto) >30 H (0-5) /lpf Urine Bacteria (Auto) Negative (Negative) Medications Administered Current Inpatient Medications Acetaminophen (Acetaminophen 325 Mg Tab) 650 mg PO Q4H PRN PRN Reason: Pain or Fever Stop: 02/06/21 06:18 Last Admin: 01/07/21 12:09 Dose: 650 mg Documented by: Albuterol (Albuterol Hfa 8 Gm Inhaler) 2 puffs INH Q4R PRN PRN Reason: Shortness Of Breath Stop: 02/06/21 06:18 Amlodipine Besylate (Amlodipine Besylate 5 Mg Tab) 5 mg PO QAM [facility] Stop: 02/06/21 08:59 Last Admin: 01/09/21 08:01 Dose: 5 mg Documented by: Clonidine HCl (Clonidine Hcl 0.2 Mg/24 Hr Transderm Sys) 1 patch TD Sa@0900 [facility] Stop: 02/06/21 08:59 Last Admin: 01/07/21 09:57 Dose: 1 patch Documented by: Cyclobenzaprine HCl (Cyclobenzaprine Hcl 5 Mg Tab) 5 mg PO TID PRN PRN Reason: Muscle Spasm Stop: 02/06/21 06:18 Last Admin: 01/08/21 04:46 Dose: 5 mg Documented by: Dextrose (Dextrose 50% 50 Ml Syringe) 25 - 50 ml IV UD PRN; Protocol PRN Reason: Hypoglycemia Protocol Stop: 02/08/21 01:29 Epinephrine HCl (Epinephrine Inj 1 Mg/Ml Amp) 0.3 mg IM Q3H PRN PRN Reason: Allergic Reaction Stop: 02/06/21 06:25 Ertapenem (Ertapenem Consult Active) 1 ea N/A UD PRN PRN Reason: Consult Stop: 02/06/21 11:25 Escitalopram Oxalate (Escitalopram Oxalate 10 Mg Tab) 10 mg PO DAILY [facility] Stop: 02/06/21 08:59 Last Admin: 01/09/21 08:02 Dose: 10 mg Documented by: Fluticasone/Vilanterol (Fluticasone/Vilanterol 100/25mcg 14 Puffs/Inhaler) 1 puffs INH DAILY [facility]; Protocol Stop: 02/06/21 08:59 Last Admin: 01/09/21 08:03 Dose: 1 puffs Documented by: Gabapentin (Gabapentin 100 Mg Cap) 100 mg PO TID [facility] Stop: 02/06/21 08:59 Last Admin: 01/09/21 08:02 Dose: 100 mg Documented by: Glucagon (Glucagon For Inj 1 Mg Vial) 1 mg IM UD PRN; Protocol PRN Reason: Hypoglycemia Protocol Stop: 02/08/21 01:29 Glucose (Glucose 40% Gel 15 Gm Tube) 15 - 30 gm PO UD PRN; Protocol PRN Reason: Hypoglycemia Protocol Stop: 02/08/21 01:29 Glucose (Glucose 10 Tabs/Tube) 4 - 8 tabs PO UD PRN; Protocol PRN Reason: Hypoglycemia Protocol Stop: 02/08/21 01:29 Heparin Sodium (Porcine) (Heparin Sod 5,000 Unit/0.5 Ml Vial) 5,000 units SQ Q8 [facility] Stop: 02/06/21 06:59 Last Admin: 01/09/21 05:04 Dose: 5,000 units Documented by: Sodium Chloride (Nss 1000ml) 1,000 mls @ 75 mls/hr IV .[id number] [facility] Stop: 02/06/21 06:18 Last Admin: 01/09/21 04:41 Dose: 75 mls/hr Documented by: Ertapenem 500 mg/ Sodium (Chloride) 55 mls @ 110 mls/hr IV DAILY [facility]; Protocol Stop: 01/17/21 08:59 Last Admin: 01/09/21 07:59 Dose: 110 mls/hr Documented by: Pantoprazole Sodium 40 mg/ (Syringe) 10 mls @ 5 mls/min IV BID [facility] Stop: 02/06/21 08:59 Last Admin: 01/09/21 08:00 Dose: 5 mls/min Documented by: Insulin Human Regular (Insulin Human Regular) 0 units SC QID@0730,1130,1630,2200 [facility] Stop: 02/07/21 16:29 Last Admin: 01/08/21 22:05 Dose: Not Given Documented by: Insulin Human Regular (Insulin Human Regular) 0 units SC QID@0730,1130,1630,2200 [facility]; Protocol Stop: 02/07/21 16:29 Last Admin: 01/09/21 05:29 Dose: 3 units Documented by: Labetalol HCl (Labetalol Hcl Iv 5 Mg/Ml 20ml) 10 mg IV Q4H PRN PRN Reason: Hypertension Stop: 02/06/21 06:18 Last Admin: 01/09/21 08:13 Dose: 10 mg Documented by: Lactobacillus Acidoph/Casei/Rhamnos (Advanced Probiotic 1250 Mg Capsule) 2 cap PO DAILY [facility] Stop: 02/06/21 08:59 Last Admin: 01/09/21 08:01 Dose: 2 cap Documented by: Levetiracetam (Levetiracetam 250 Mg Tab) 750 mg PO BID [facility] Stop: 02/06/21 08:59 Last Admin: 01/09/21 08:01 Dose: 750 mg Documented by: Magnesium Oxide (Magnesium Oxide 400 Mg Tab) 400 mg PO BID [facility] Stop: 02/06/21 08:59 Last Admin: 01/09/21 08:02 Dose: 400 mg Documented by: Metoclopramide HCl (Metoclopramide Hcl Inj 5 Mg/Ml 2 Ml Vial) 10 mg IV Q8H [facility] Stop: 02/06/21 16:44 Last Admin: 01/09/21 08:01 Dose: 10 mg Documented by: Miscellaneous (Remove Clonidine Patch) 1 ea N/A CQWK [facility] Stop: 02/06/21 08:58 Last Admin: 01/07/21 09:46 Dose: 1 ea Documented by: Miscellaneous (Check Clonidine Patch Placement) 1 ea N/A QS [facility] Stop: 02/06/21 07:59 Last Admin: 01/09/21 08:00 Dose: 1 ea Documented by: Miscellaneous (Carbohydrates For Hypoglycemia ) 15 - 30 gm PO UD PRN PRN Reason: Hypoglycemia Treatment Stop: 02/08/21 01:29 Last Admin: 01/09/21 01:22 Dose: 15 gm Documented by: Miscellaneous Information (Pharmacy Glycemic Mgmt Consult) 1 ea N/A UD PRN PRN Reason: Consult Stop: 02/06/21 07:44 Morphine Sulfate (Morphine Sulfate Cr 15 Mg Tabcr) 30 mg PO BID [facility] Stop: 01/21/21 08:59 Last Admin: 01/09/21 08:05 Dose: 30 mg Documented by: Multivitamins (Multivitamin Tab) 1 tab PO QAM [facility] Stop: 02/06/21 08:59 Last Admin: 01/09/21 08:01 Dose: 1 tab Documented by: Nitroglycerin (Nitroglycerin Sl 0.4 Mg/Tab Tab) 0.4 mg SL UD PRN PRN Reason: Chest Pain Stop: 02/06/21 06:18 Ondansetron HCl (Ondansetron Inj 2 Mg/Ml 2 Ml Vial) 4 mg IV Q6H PRN PRN Reason: Nausea Stop: 02/06/21 06:18 Last Admin: 01/08/21 08:35 Dose: 4 mg Documented by: Ondansetron HCl (Ondansetron 8mg Od Tab) 8 mg PO Q8H PRN PRN Reason: Nausea Stop: 02/06/21 06:18 Oxycodone HCl (Oxycodone Hcl Ir 5 Mg Tab (Immediate Release)) 5 mg PO Q4H PRN PRN Reason: severe pain Stop: 01/21/21 06:18 Last Admin: 01/08/21 17:45 Dose: 5 mg Documented by: Pantoprazole Sodium (Pantoprazole 40 Mg Tab) 40 mg PO QAM [facility] Stop: 02/06/21 08:59 Polyethylene Glycol (Polyethylene (Miralax) 17 Gm Pack) 17 gm PO DAILY PRN PRN Reason: Constipation Stop: 02/06/21 06:18 (1) Nausea & vomiting Vomiting Intractability: intractable Vomiting type: unspecified Qualified Code(s): R11.2 - Nausea with vomiting, unspecified
--- NOTE | 2021-01-09 11:54 | Progress Note ---
Date of Service January 09, 2021 Assessment & Plan (1) Nausea & vomiting: Vomiting Intractability: intractable Vomiting type: unspecified Qualified Code(s): R11.2 - Nausea with vomiting, unspecified (2) Abnormal finding on CT scan: Plan: 55-year-old gentleman with nausea and vomiting. He has his chronic abdominal pain, which she states is no worse than normal. He has no focal tenderness in the right lower quadrant. He is set to undergo EGD to evaluate his possible esophagitis and gastric pacemaker in the next day or so. White blood cell count normal. No evidence of appendicitis. We will continue to follow. 01/09/2021 11:52AM Dr. Castillo signs indicated acute appendicitis, no surgical indication now, continue treatment, will F/u Admission and Anticipated Discharge Date Admission Date: January 07, 2021 Subjective Patient seen in follow-up of abdominal pain, nausea vomiting Currently he is sitting up in bed, in no acute distress, so that he is feeling better, he is also more awake He was able to eat yesterday and today, without significant nausea and vomiting, he also said that he feels hungry and would like his diet advanced Seen by surgery and GI yesterday, plan for EGD tomorrow (Saturday) Patient denies any fevers, chest pain shortness of breath, says he has occasional chills 01/09/2021 11:50 AM, Dr. Castillo Patient seen in follow-up of abdominal pain, nausea vomiting pt feels better, less abdominal pain, the pain is located at LUQ area, no vomiting, no fever, Physical Exam Constitutional: WD/WN, vitals as above Eyes: PERRL, conjunctivae normal, anicteric sclerae Neck: trachea midline, no thyromegaly Respiratory: normal respiratory effort, lungs clear to auscultation Cardiovascular: RRR, no murmur, no edema Gastrointestinal (Abdomen): soft, mild tenderness at LUQ area, no rebound pain, no distend, BS +, Neurologic: patellar DTR's 2+ bilat, sensation intact Psychiatric: A+Ox3, euthymic affect Results & Data ([facility]) Vital Signs (Past 12 Hours) Vital Signs Temp Pulse Pulse Resp BP Pulse Ox 01/09/21 08:00 78 01/09/21 07:03 36.6 C 76 20 181/93 H 98 01/09/21 04:12 36.3 C L 73 18 156/84 H 98 01/09/21 01:57 71 174/104 H 01/09/21 00:57 78 180/101 H Laboratory Results Abnormal lab results 01/08/21 01/08/21 01/08/21 Range/Units 14:27 16:33 21:50 RBC (4.7-6.1) M/uL Hgb (14.0-18.0) g/dL Hct (42-52) % BUN (7-18) mg/dl Creatinine (0.6-1.4) mg/dl BUN/Creatinine Ratio (10-20) Glucose (70-99) mg/dl POC Glucose 278 H 203 H (70-99) mg/dl Calcium (8.5-10.1) mg/dl Phosphorus (2.5-4.9) mg/dl Urine Protein 4+ H (Negative) Urine Glucose (UA) 1+ H (Negative) Urine Blood Trace H (Negative) U Hyaline Cast (Auto) 5-10 H (0-5) /lpf U Epithel Cells (Auto) >30 H (0-5) /lpf 01/09/21 01/09/21 01/09/21 Range/Units 01:07 01:23 05:08 RBC (4.7-6.1) M/uL Hgb (14.0-18.0) g/dL Hct (42-52) % BUN (7-18) mg/dl Creatinine (0.6-1.4) mg/dl BUN/Creatinine Ratio (10-20) Glucose (70-99) mg/dl POC Glucose 50 L* 62 L* 349 H* (70-99) mg/dl Calcium (8.5-10.1) mg/dl Phosphorus (2.5-4.9) mg/dl Urine Protein (Negative) Urine Glucose (UA) (Negative) Urine Blood (Negative) U Hyaline Cast (Auto) (0-5) /lpf U Epithel Cells (Auto) (0-5) /lpf 01/09/21 01/09/21 01/09/21 Range/Units 05:10 05:52 05:52 RBC 2.92 L (4.7-6.1) M/uL Hgb 8.4 L (14.0-18.0) g/dL Hct 25.6 L (42-52) % BUN 30 H (7-18) mg/dl Creatinine 3.04 H (0.6-1.4) mg/dl BUN/Creatinine Ratio 9.9 L (10-20) Glucose 345 H* (70-99) mg/dl POC Glucose 344 H* (70-99) mg/dl Calcium 7.6 L (8.5-10.1) mg/dl Phosphorus 5.2 H D (2.5-4.9) mg/dl Urine Protein (Negative) Urine Glucose (UA) (Negative) Urine Blood (Negative) U Hyaline Cast (Auto) (0-5) /lpf U Epithel Cells (Auto) (0-5) /lpf 01/09/21 Range/Units 09:40 RBC (4.7-6.1) M/uL Hgb (14.0-18.0) g/dL Hct (42-52) % BUN (7-18) mg/dl Creatinine (0.6-1.4) mg/dl BUN/Creatinine Ratio (10-20) Glucose (70-99) mg/dl POC Glucose 241 H (70-99) mg/dl Calcium (8.5-10.1) mg/dl Phosphorus (2.5-4.9) mg/dl Urine Protein (Negative) Urine Glucose (UA) (Negative) Urine Blood (Negative) U Hyaline Cast (Auto) (0-5) /lpf U Epithel Cells (Auto) (0-5) /lpf
[2021-01-09] MEDS ORDERED: INSULIN HUMAN REGULAR SC ONE (12:00)
[2021-01-09] MEDS: oxyCODONE HCL IR 5 MG TAB (IMMEDIATE RELEASE) PO PRN ×2 (12:39→23:54)
--- NOTE | 2021-01-09 15:23 | Pharmacy Report ---
Pharmacy Glycemic Short Note 2 - Date of Service January 09, 2021 - Glycemic Short BSG Results (Last 24 hours): 01/08/21 01/08/21 01/09/21 16:33 21:50 01:07 Glucose POC Glucose 278 H 203 H 50 L* 01/09/21 01/09/21 01/09/21 01:23 01:37 01:53 Glucose POC Glucose 62 L* 70 80 01/09/21 01/09/21 01/09/21 05:08 05:10 05:52 Glucose 345 H* POC Glucose 349 H* 344 H* 01/09/21 01/09/21 01/09/21 09:40 11:42 14:59 Glucose POC Glucose 241 H 299 H 137 H OUTPATIENT ANTIDIABETIC REGIMEN: * Lantus 7 units HS+ Humalog ASSESSMENT: * Jeff had poor glycemic control over the last 24 hours. He was hyperglycemia most of the day and then hypoglycemic overnight. Unsure what the cause of hypoglycemia was - he did not receive any novolog at bedtime. * AM BSG = 241 mg/dL. Will increase regular insulin scale * Carbs consumed with breakfast were not covered, therefore I will not make changes to novolog order * If glycemic control is not improved on 9 am, may need to resume Lantus rather than regular insulin q6 Background * Mr Alfonso is a 55 y/o M with T2DM who presents with with N/V. He is currently NPO. * Per previous visit, scheduled regular insulin q 6 hours works well for patient when NPO. Since it is sliding, it functions as both basal and correctional. * Since BSG > 300 mg/dL currently, will give small insulin bolus (3 units IV) to produce rapid decrease in BSG. PLAN FOR INPATIENT GLYCEMIC CONTROL: * Basal insulin * Regular insulin q6 (0 units if BSG < 110, 2 unit if BSG 110-140, 3 units if BSG 141-200 mg/dL, 4 units if BSG > 200) * Bolus insulin * Regular insulin carbohydrate coverage 1 unit per 20 grams of carbohydrates consumed PLAN FOR DISCHARGE: * close follow up with [facility]
[2021-01-09] MEDS ORDERED: Nursing to Pharmacy Communication SCH (21:00)
[2021-01-10] MEDS: HEPARIN SOD 5,000 UNIT/0.5 ML VIAL SQ SCH (05:11)
[2021-01-10] MEDS: INSULIN HUMAN REGULAR SC SCH ×4 (05:32→20:40)
[2021-01-10] MEDS: SODIUM CHLORIDE 0.9% 1000ML 1,000 ML IV SCH (05:49)
[2021-01-10 06:15] LABS: Hematocrit (blood only) 24.1 % (42-52); Hemoglobin 7.9 g/dL (14.0-18.0); Mean Corpuscular Hemoglobin 29.2 pg (25-34); Mean Corpuscular Hgb Conc 32.8 g/dL (32-36); Mean Corpuscular Volume 88.9 fL (80-100); Mean Platelet Volume 9.8 fL (7.4-10.4); Platelet Count 284 K/uL (130-400); RDW Coefficient of Variation 13.7 % (11.5-14.5); RDW Standard Deviation 44.1 fL (36.4-46.3); Red Blood Count 2.71 M/uL (4.7-6.1); White Blood Count 4.35 K/uL (4.8-10.8)
[2021-01-10 07:04] LABS: BUN Creatinine Ratio 8.5 (10-20); Calcium 7.5 mg/dl (8.5-10.1); Creatinine Clr Calc Pharmacy 28.1 ml/min; Est GFR (African American) 27.3 ml/min; Est GFR (Non-African American) 23.6 ml/min; Magnesium 1.9 mg/dl (1.8-2.4); Potassium 4.3 mmol/L (3.5-5.1)
[2021-01-10 07:05] LABS: Phosphorus 5.2 mg/dl (2.5-4.9)
--- NOTE | 2021-01-10 08:23 | Anesthesiology Consultation ---
Date of Service January 10, 2021 History Surgery Operation Date: 01/10/21 16:00 Proposed Procedures p Esophagogastroduodenoscopy Dr Anastacio Chaves, DO Height/Weight Height: 5 ft 8 in Weight: 75.7 kg Allergies Allergy/AdvReac Type Severity Reaction Status Date / Time bee venom protein (honey bee) Allergy Mild SWELLING Verified 01/10/21 08:18 AT SITE, SOB Penicillins Allergy Unknown "SINCE Verified 01/10/21 08:18 "-Amoxicillin cat dander Allergy Unknown Verified 01/10/21 08:18 Medications Home Medications Medication Instructions Recorded Confirmed Last Taken albuterol sulfate 90 mcg/actuation 2 puff INHALATION Q4H PRN 05/05/18 01/07/21 12/19/20 aerosol inhaler epinephrine 0.3 mg/0.3 mL 0.3 mg IM Q3H PRN 05/05/18 01/07/21 04/28/18 injection, auto-injector (EpiPen) insulin glargine 100 unit/mL (3 7 unit SUBCUT HS 05/05/18 01/07/21 12/19/20 mL) subcutaneous pen (Basaglar KwikPen U-100 Insulin) insulin lispro 100 unit/mL 1 sliding scale dose SUBCUT UD 05/05/18 01/07/21 12/19/20 21:00 subcutaneous cartridge (Humalog 6 U-100 Insulin) multivitamin 1 tab PO QAM 05/05/18 01/07/21 12/19/20 pantoprazole 40 mg tablet,delayed 40 mg PO QAM 05/05/18 01/07/21 12/19/20 release clonidine 0.2 mg/24 hr weekly 1 patch TRANSDERMAL WK 01/23/20 01/07/21 12/20/20 transdermal patch escitalopram oxalate 10 mg tablet 10 mg PO DAILY 01/24/20 01/07/21 12/19/20 (Lexapro) fluticasone 250 mcg-salmeterol 50 1 inh INHALATION BID 01/24/20 01/07/21 12/19/20 mcg/dose blistr powdr for inhalation (Wixela Inhub) amlodipine 5 mg tablet (Norvasc) 5 mg PO QAM #30 tab 01/29/20 01/07/21 12/19/20 levetiracetam 750 mg tablet 750 mg PO BID 30 Days #60 tab 01/29/20 01/07/21 12/19/20 (Keppra) cyclobenzaprine 5 mg tablet 5 mg PO TID PRN 12/20/20 01/07/21 12/19/20 ondansetron 8 mg disintegrating 8 mg PO Q8H PRN 12/20/20 01/07/21 12/19/20 18:00 tablet L.acidop,casei,lactis,rham-B.lact,jose 2 cap PO DAILY #30 cap 12/29/20 01/07/21 Unknown 625 mg (10 billion cell) capsule (Advanced Probiotic) cephalexin 500 mg capsule 500 mg PO BID 10 Days #20 cap 12/29/20 01/07/21 Unknown gabapentin 100 mg capsule 100 mg PO TID #30 cap 12/29/20 01/07/21 Unknown magnesium oxide 400 mg (241.3 mg 400 mg PO BID #30 tab 12/29/20 01/07/21 Unknown magnesium) tablet morphine 30 mg tablet,extended 30 mg PO Q12H #10 tab 12/29/20 01/07/21 Unknown release (MS Contin) oxycodone 5 mg tablet 5 mg PO Q4H PRN #10 tab 12/29/20 01/07/21 Unknown Active Medications Generic Name Dose Route Start Last Admin Trade Name Robert PRN Reason Stop Dose Admin Acetaminophen 650 mg 01/07/21 06:19 01/07/21 12:09 Acetaminophen 325 Mg Tab PO 02/06/21 06:18 650 mg Q4H PRN Administration Pain or Fever Amlodipine Besylate 5 mg 01/07/21 09:00 01/09/21 08:01 Amlodipine Besylate 5 Mg Tab PO 02/06/21 08:59 5 mg QAM DAMIR Administration Clonidine HCl 1 patch 01/07/21 09:00 01/07/21 09:57 Clonidine Hcl 0.2 Mg/24 Hr Transderm Sys TD 02/06/21 08:59 1 patch Sa@0900 DAMIR Administration Cyclobenzaprine HCl 5 mg 01/07/21 06:19 01/08/21 04:46 Cyclobenzaprine Hcl 5 Mg Tab PO 02/06/21 06:18 5 mg TID PRN Administration Muscle Spasm Dextrose 25 - 50 ml 01/09/21 01:30 01/09/21 20:07 Dextrose 50% 50 Ml Syringe IV 02/08/21 01:29 50 ml UD PRN Administration Hypoglycemia Protocol Protocol Escitalopram Oxalate 10 mg 01/07/21 09:00 01/09/21 08:02 Escitalopram Oxalate 10 Mg Tab PO 02/06/21 08:59 10 mg DAILY DAMIR Administration Fluticasone/Vilanterol 1 puffs 01/07/21 09:00 01/09/21 08:03 Fluticasone/Vilanterol 100/25mcg 14 Puffs/Inhaler INH 02/06/21 08:59 1 puffs DAILY DAMIR Administration Protocol Gabapentin 100 mg 01/07/21 09:00 01/09/21 20:10 Gabapentin 100 Mg Cap PO 02/06/21 08:59 100 mg TID DAMIR Administration Heparin Sodium (Porcine) 5,000 units 01/07/21 07:00 01/10/21 05:11 Heparin Sod 5,000 Unit/0.5 Ml Vial SQ 02/06/21 06:59 Not Given Q8 DAMIR Sodium Chloride 1,000 mls @ 75 mls/hr 01/07/21 06:19 01/10/21 05:49 Nss 1000ml IV 02/06/21 06:18 75 mls/hr .[id number] DAMIR Administration Pantoprazole Sodium 40 mg/ 10 mls @ 5 mls/min 01/07/21 09:00 01/09/21 20:11 Syringe IV 02/06/21 08:59 5 mls/min BID DAMIR Administration Labetalol HCl 10 mg 01/07/21 06:19 01/09/21 08:13 Labetalol Hcl Iv 5 Mg/Ml 20ml IV 02/06/21 06:18 10 mg Q4H PRN Administration Hypertension Lactobacillus Acidoph/Casei/Rhamnos 2 cap 01/07/21 09:00 01/09/21 08:01 Advanced Probiotic 1250 Mg Capsule PO 02/06/21 08:59 2 cap DAILY DAMIR Administration Levetiracetam 750 mg 01/07/21 09:00 01/09/21 20:10 Levetiracetam 250 Mg Tab PO 02/06/21 08:59 750 mg BID DAMIR Administration Magnesium Oxide 400 mg 01/07/21 09:00 01/09/21 20:10 Magnesium Oxide 400 Mg Tab PO 02/06/21 08:59 400 mg BID DAMIR Administration Metoclopramide HCl 10 mg 01/07/21 16:45 01/09/21 23:50 Metoclopramide Hcl Inj 5 Mg/Ml 2 Ml Vial IV 02/06/21 16:44 10 mg Q8H DAMIR Administration Miscellaneous 1 ea 01/07/21 08:59 01/07/21 09:46 Remove Clonidine Patch N/A 02/06/21 08:58 1 ea CQWK DAMIR Administration Miscellaneous 1 ea 01/07/21 08:00 01/09/21 21:42 Check Clonidine Patch Placement N/A 02/06/21 07:59 1 ea QS DAMIR Administration Miscellaneous 15 - 30 gm 01/09/21 01:30 01/09/21 01:22 Carbohydrates For Hypoglycemia PO 02/08/21 01:29 15 gm UD PRN Administration Hypoglycemia Treatment Morphine Sulfate 30 mg 01/07/21 09:00 01/09/21 20:10 Morphine Sulfate Cr 15 Mg Tabcr PO 01/21/21 08:59 30 mg BID DAMIR Administration Multivitamins 1 tab 01/07/21 09:00 01/09/21 08:01 Multivitamin Tab PO 02/06/21 08:59 1 tab QAM DAMIR Administration Ondansetron HCl 4 mg 01/07/21 06:19 01/08/21 08:35 Ondansetron Inj 2 Mg/Ml 2 Ml Vial IV 02/06/21 06:18 4 mg Q6H PRN Administration Nausea Oxycodone HCl 5 mg 01/07/21 06:19 01/09/21 23:54 Oxycodone Hcl Ir 5 Mg Tab (Immediate Release) PO 01/21/21 06:18 5 mg Q4H PRN Administration severe pain Past Medical History Medical History Acute dyspnea Acute hyponatremia Acute renal insufficiency IVAN (acute kidney injury) Anemia Chest pain No current chest pain...related to reflux per patient Chronic pain COPD (chronic obstructive pulmonary disease) Diabetes mellitus type 2, uncontrolled Diabetic autonomic neuropathy Diabetic peripheral neuropathy Discharge planning issues DVT prophylaxis Elevated d-dimer Gastroparesis "s/p gastric stimulator" Hypertension Hypomagnesemia Intractable nausea and vomiting 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 One 1 mm polyp in the ascending colon resected. One benign appearing 1 mm polyp in the rectum resected. Internal hemorrhoids; Dr. Demarco" H/O esophagogastroduodenoscopy "01/26/2015- LA Grade B reflux esophagitis, gastritis; Dr. Major" History of cholecystectomy History of tonsillectomy and adenoidectomy Hx of total knee arthroplasty S/P lobectomy of lung "left upper lobectomy for adenoCa" On 08/05/16 16:30 Edie Mcfarland wrote "L side @ [facility] 05/25/16" Status post insertion of intrathecal pump explanted Social History Smoking Status: Former smoker tobacco type: smokeless tobacco Hx Alcohol Use: No Alcohol type: beer alcohol intake frequency: holidays/special occasions only Hx Substance Use: Yes substance use type: opiates Substance Use Type Other:: fentanyl patch 24hrs a day-refused removal of 2 patches Last Used Substance: Just Prior to Arrival Last Used Substance Other:: Four hours ago Physical Exam Vital Signs Last Vital Signs Temp 36.5 C 01/10/21 08:01 Pulse 78 01/10/21 08:01 Resp 18 01/10/21 03:44 BP 196/94 H 01/10/21 08:01 Pulse Ox 98 01/10/21 08:01 Testing Laboratory Results 01/10/21 05:58 01/10/21 05:58 Urine Color Yellow 01/08/21 14:27 Urine Appearance Clear (Clear) 01/08/21 14:27 Urine pH 6.0 (4.5-7.5) 01/08/21 14:27 Ur Specific Grace 1.015 (1.000-1.030) 01/08/21 14:27 Urine Protein 4+ (Negative) H 01/08/21 14:27 Urine Glucose (UA) 1+ (Negative) H 01/08/21 14:27 Urine Ketones Negative (Negative) 01/08/21 14:27 Urine Nitrite Negative (Negative) 01/08/21 14:27 Ur Leukocyte Esterase Negative (Negative) 01/08/21 14:27 Urine WBC (Auto) 1-5 /hpf (0-5) 01/08/21 14:27 Urine RBC (Auto) 0-4 /hpf (0-4) 01/08/21 14:27 U Hyaline Cast (Auto) 5-10 /lpf (0-5) H 01/08/21 14:27 U Epithel Cells (Auto) >30 /lpf (0-5) H 01/08/21 14:27 Urine Bacteria (Auto) Negative (Negative) 01/08/21 14:27 01/10/21 01/10/21 01/09/21 07:25 05:29 23:47 POC Glucose 108 H 139 H 265 H 01/09/21 20:22 POC Glucose 130 H
[2021-01-10] MEDS ORDERED: MIDAZOLAM HCL 1 MG/ML 2ML VIAL ONE (08:24)
[2021-01-10] MEDS ORDERED: LIDOCAINE 2% 2 ML VIAL/AMP(20MG/ML) INFIL ONE ×2 (08:26→08:31)
--- NOTE | 2021-01-10 08:29 | Hospitalist Progress Note ---
Date of Service January 10, 2021 Assessment & Plan (1) Nausea & vomiting: (2) Abnormal finding on CT scan: Plan: This is a 55-year-old male, who presents with nausea and vomiting. 1. Nausea and vomiting: The patient has history of gastroparesis,and gastric pacemaker. The patient is also on chronic narcotic pain medications. The patient says he had diarrhea at home. CT of the abdomen and pelvis 1. Interval development of circumferential wall thickening of the distal esophagus suggestive of esophagitis. 2. Fluid-filled, mildly distended stomach. 3. No bowel obstruction. 4. Re-demonstration of a lytic lesion within left ninth rib suggestive of metastatic disease. 5. Mildly distended appendix which is similar in caliber to prior examination. No definite periappendiceal infiltration. The findings do not strongly suggest acute appendicitis however correlation with right lower quadrant pain is recommended. Currently nausea improved. Continue gentle fluids. Continue IV antiemetics. Surgery consulted re poss. appendicitis GI consulted re: esophagitis, gastric pacemaker, nausea/vomiting S/p EGD - showing esophagitis and gastric content - plan to repeat EGD - pt needs to be on clear liquid diet for 48 hrs prior Cont. Reglan IV 2. Hypertensive urgency: Even after hydralazine and Lopressor in the ER, his blood pressure was still running high . Question of withdrawal from his pain medicine. The patient had nausea at home, but he states he was able to take his pills at home. Will continue his home blood pressure medications of clonidine patch, amlodipine. Will place him on IV labetalol p.r.n. and closely monitor. BP now seems improved Cont. to closely monitor 3. History of urine retention: CT reviewed, monitor urine output. Bladder scan. 4. Chronic kidney disease stage III: Possible acute kidney injury. His baseline creatinine used to be 2, but last admission on discharge it was 2.4 and on current admission 2.6. Now 3 Monitor renal function Given gentle fluids. 5. History of left ring finger wound: Last admission he received daptomycin and ceftriaxone, currently on Keflex, last dose 01/08/21. Seems to be healing well. 6. Type 1 diabetes: His recent HbA1c was 7.4%. Continue his long-acting insulin sliding scale. Monitor the blood sugars. 7. Non-small cell lung cancer, stage III, status post surgery, incomplete chemotherapy secondary to tolerance. Last admission,lesion noted on left 9th rib. Needs to follow up with PCP and oncologist. 8. History of seizure disorder, currently on Keppra 750 b.i.d. If not able to take p.o., then need to change to IV. 9. Chronic anemia: Hemoglobin 10.2, seems stable. Will follow the repeat labs. 10. History of tobacco abuse. 11. Chronic pain: Continue his home pain medications. 12. Depression: Continue Lexapro. 13. History of chronic obstructive pulmonary disease: Continue home inhalers. DVT prophylaxis: heparin subQ DISPOSITION: Closely monitor in the [employer] service to help with discharge planning. Code: Full (3) Gastroparesis: Admission and Anticipated Discharge Date Admission Date: January 07, 2021 Subjective Patient seen in follow-up of abdominal pain, nausea vomiting Currently he is sitting up in bed, in no acute distress He is alert oriented, answering questions appropriately Seen by surgery and GI, s/p EGD today (Saturday) Patient denies any fevers, chest pain shortness of breath Review of Systems Review of Systems: All systems reviewed & are unremarkable except as noted in Subjective Physical Exam Physical Exam: GENERAL: The patient is of moderate build, not in acute distress. HEENT: NC/AT, EOMI, Pupils equal, round and reactive to light. NECK: No JVD, no neck masses. CARDIOVASCULAR: S1 and S2 heard. RRR. No murmurs. RESPIRATORY: Normal AP diameter. No accessory muscle use. No wheezing, no crackles. ABDOMEN: Soft, bowel sounds present. mild diffuse abdominal tenderness to palpation (no guarding). No distention. NEURO: Alert and oriented x3. Answering questions appropriately. No facial droop. Speech is clear. Moves extremities. EXTREMITIES: No edema, no erythema seen. Results & Data Results & Data ([facility]) Vital Signs (Past 12 Hours) Vital Signs Temp Pulse Pulse Pulse Resp BP BP 01/10/21 08:19 36.0 C L 82 16 213/112 H 01/10/21 08:01 36.5 C 78 196/94 H 01/10/21 07:57 77 01/10/21 03:44 36.4 C L 81 18 168/88 H 01/10/21 00:00 75 01/09/21 23:13 36.3 C L 76 16 163/89 H Pulse Ox 01/10/21 08:19 99 01/10/21 08:01 98 01/10/21 07:57 01/10/21 03:44 98 01/10/21 00:00 01/09/21 23:13 100 Laboratory Results 01/10/21 01/10/21 01/10/21 Range/Units 07:25 05:58 05:58 WBC 4.35 L (4.8-10.8) K/uL RBC 2.71 L (4.7-6.1) M/uL Hgb 7.9 L (14.0-18.0) g/dL Hct 24.1 L (42-52) % MCV 88.9 (80-100) fL MCH 29.2 (25-34) pg MCHC 32.8 (32-36) g/dL RDW Std Deviation 44.1 (36.4-46.3) fL RDW Coeff of Rik 13.7 (11.5-14.5) % Plt Count 284 (130-400) K/uL MPV 9.8 (7.4-10.4) fL Sodium 136 (136-145) mmol/L Potassium 4.3 (3.5-5.1) mmol/L Chloride 108 H (98-107) mmol/L Carbon Dioxide 22 (21-32) mmol/L Anion Gap 6.0 (3-11) BUN 25 H (7-18) mg/dl Creatinine 2.87 H (0.6-1.4) mg/dl Est Cr Clr Drug Dosing 28.1 ml/min Est GFR ( Amer) 27.3 ml/min Est GFR (Non-Af Amer) 23.6 ml/min BUN/Creatinine Ratio 8.5 L (10-20) Glucose 117 H (70-99) mg/dl POC Glucose 108 H (70-99) mg/dl Calcium 7.5 L (8.5-10.1) mg/dl Phosphorus 5.2 H (2.5-4.9) mg/dl Magnesium 1.9 (1.8-2.4) mg/dl 01/10/21 01/09/21 01/09/21 Range/Units 05:29 23:47 20:22 WBC (4.8-10.8) K/uL RBC (4.7-6.1) M/uL Hgb (14.0-18.0) g/dL Hct (42-52) % MCV (80-100) fL MCH (25-34) pg MCHC (32-36) g/dL RDW Std Deviation (36.4-46.3) fL RDW Coeff of Rik (11.5-14.5) % Plt Count (130-400) K/uL MPV (7.4-10.4) fL Sodium (136-145) mmol/L Potassium (3.5-5.1) mmol/L Chloride (98-107) mmol/L Carbon Dioxide (21-32) mmol/L Anion Gap (3-11) BUN (7-18) mg/dl Creatinine (0.6-1.4) mg/dl Est Cr Clr Drug Dosing ml/min Est GFR ( Amer) ml/min Est GFR (Non-Af Amer) ml/min BUN/Creatinine Ratio (10-20) Glucose (70-99) mg/dl POC Glucose 139 H 265 H 130 H (70-99) mg/dl Calcium (8.5-10.1) mg/dl Phosphorus (2.5-4.9) mg/dl Magnesium (1.8-2.4) mg/dl 01/09/21 01/09/21 01/09/21 Range/Units 20:00 19:59 16:50 WBC (4.8-10.8) K/uL RBC (4.7-6.1) M/uL Hgb (14.0-18.0) g/dL Hct (42-52) % MCV (80-100) fL MCH (25-34) pg MCHC (32-36) g/dL RDW Std Deviation (36.4-46.3) fL RDW Coeff of Rik (11.5-14.5) % Plt Count (130-400) K/uL MPV (7.4-10.4) fL Sodium (136-145) mmol/L Potassium (3.5-5.1) mmol/L Chloride (98-107) mmol/L Carbon Dioxide (21-32) mmol/L Anion Gap (3-11) BUN (7-18) mg/dl Creatinine (0.6-1.4) mg/dl Est Cr Clr Drug Dosing ml/min Est GFR ( Amer) ml/min Est GFR (Non-Af Amer) ml/min BUN/Creatinine Ratio (10-20) Glucose (70-99) mg/dl POC Glucose 31 L* 31 L* 70 (70-99) mg/dl Calcium (8.5-10.1) mg/dl Phosphorus (2.5-4.9) mg/dl Magnesium (1.8-2.4) mg/dl 01/09/21 01/09/21 01/09/21 Range/Units 14:59 11:42 09:40 WBC (4.8-10.8) K/uL RBC (4.7-6.1) M/uL Hgb (14.0-18.0) g/dL Hct (42-52) % MCV (80-100) fL MCH (25-34) pg MCHC (32-36) g/dL RDW Std Deviation (36.4-46.3) fL RDW Coeff of Rik (11.5-14.5) % Plt Count (130-400) K/uL MPV (7.4-10.4) fL Sodium (136-145) mmol/L Potassium (3.5-5.1) mmol/L Chloride (98-107) mmol/L Carbon Dioxide (21-32) mmol/L Anion Gap (3-11) BUN (7-18) mg/dl Creatinine (0.6-1.4) mg/dl Est Cr Clr Drug Dosing ml/min Est GFR ( Amer) ml/min Est GFR (Non-Af Amer) ml/min BUN/Creatinine Ratio (10-20) Glucose (70-99) mg/dl POC Glucose 137 H 299 H 241 H (70-99) mg/dl Calcium (8.5-10.1) mg/dl Phosphorus (2.5-4.9) mg/dl Magnesium (1.8-2.4) mg/dl Medications Administered Current Inpatient Medications Acetaminophen (Acetaminophen 325 Mg Tab) 650 mg PO Q4H PRN PRN Reason: Pain or Fever Stop: 02/06/21 06:18 Last Admin: 01/07/21 12:09 Dose: 650 mg Documented by: Albuterol (Albuterol Hfa 8 Gm Inhaler) 2 puffs INH Q4R PRN PRN Reason: Shortness Of Breath Stop: 02/06/21 06:18 Amlodipine Besylate (Amlodipine Besylate 5 Mg Tab) 5 mg PO QAM [facility] Stop: 02/06/21 08:59 Last Admin: 01/09/21 08:01 Dose: 5 mg Documented by: Clonidine HCl (Clonidine Hcl 0.2 Mg/24 Hr Transderm Sys) 1 patch TD Sa@0900 [facility] Stop: 02/06/21 08:59 Last Admin: 01/07/21 09:57 Dose: 1 patch Documented by: Cyclobenzaprine HCl (Cyclobenzaprine Hcl 5 Mg Tab) 5 mg PO TID PRN PRN Reason: Muscle Spasm Stop: 02/06/21 06:18 Last Admin: 01/08/21 04:46 Dose: 5 mg Documented by: Dextrose (Dextrose 50% 50 Ml Syringe) 25 - 50 ml IV UD PRN; Protocol PRN Reason: Hypoglycemia Protocol Stop: 02/08/21 01:29 Last Admin: 01/09/21 20:07 Dose: 50 ml Documented by: Epinephrine HCl (Epinephrine Inj 1 Mg/Ml Amp) 0.3 mg IM Q3H PRN PRN Reason: Allergic Reaction Stop: 02/06/21 06:25 Escitalopram Oxalate (Escitalopram Oxalate 10 Mg Tab) 10 mg PO DAILY [facility] Stop: 02/06/21 08:59 Last Admin: 01/09/21 08:02 Dose: 10 mg Documented by: Fluticasone/Vilanterol (Fluticasone/Vilanterol 100/25mcg 14 Puffs/Inhaler) 1 puffs INH DAILY [facility]; Protocol Stop: 02/06/21 08:59 Last Admin: 01/09/21 08:03 Dose: 1 puffs Documented by: Gabapentin (Gabapentin 100 Mg Cap) 100 mg PO TID [facility] Stop: 02/06/21 08:59 Last Admin: 01/09/21 20:10 Dose: 100 mg Documented by: Glucagon (Glucagon For Inj 1 Mg Vial) 1 mg IM UD PRN; Protocol PRN Reason: Hypoglycemia Protocol Stop: 02/08/21 01:29 Glucose (Glucose 40% Gel 15 Gm Tube) 15 - 30 gm PO UD PRN; Protocol PRN Reason: Hypoglycemia Protocol Stop: 02/08/21 01:29 Glucose (Glucose 10 Tabs/Tube) 4 - 8 tabs PO UD PRN; Protocol PRN Reason: Hypoglycemia Protocol Stop: 02/08/21 01:29 Heparin Sodium (Porcine) (Heparin Sod 5,000 Unit/0.5 Ml Vial) 5,000 units SQ Q8 DAMIR Stop: 02/06/21 06:59 Last Admin: 01/10/21 05:11 Dose: Not Given Documented by: Pantoprazole Sodium 40 mg/ (Syringe) 10 mls @ 5 mls/min IV BID DAMIR Stop: 02/06/21 08:59 Last Admin: 01/09/21 20:11 Dose: 5 mls/min Documented by: Insulin Glargine (Insulin Glargine Solostar 100 Units/Ml 3 Ml Pen) 10 units SC DAILY@1800 [facility] Stop: 02/09/21 17:59 Insulin Human Regular (Insulin Human Regular) 0 units SC Q6 [facility] Stop: 02/09/21 11:59 Labetalol HCl (Labetalol Hcl Iv 5 Mg/Ml 20ml) 10 mg IV Q4H PRN PRN Reason: Hypertension Stop: 02/06/21 06:18 Last Admin: 01/09/21 08:13 Dose: 10 mg Documented by: Lactobacillus Acidoph/Casei/Rhamnos (Advanced Probiotic 1250 Mg Capsule) 2 cap PO DAILY DAMIR Stop: 02/06/21 08:59 Last Admin: 01/09/21 08:01 Dose: 2 cap Documented by: Levetiracetam (Levetiracetam 250 Mg Tab) 750 mg PO BID DAMIR Stop: 02/06/21 08:59 Last Admin: 01/09/21 20:10 Dose: 750 mg Documented by: Magnesium Oxide (Magnesium Oxide 400 Mg Tab) 400 mg PO BID DAMIR Stop: 02/06/21 08:59 Last Admin: 01/09/21 20:10 Dose: 400 mg Documented by: Metoclopramide HCl (Metoclopramide Hcl Inj 5 Mg/Ml 2 Ml Vial) 10 mg IV Q8H [facility] Stop: 02/06/21 16:44 Last Admin: 01/09/21 23:50 Dose: 10 mg Documented by: Miscellaneous (Remove Clonidine Patch) 1 ea N/A CQWK [facility] Stop: 02/06/21 08:58 Last Admin: 01/07/21 09:46 Dose: 1 ea Documented by: Miscellaneous (Check Clonidine Patch Placement) 1 ea N/A QS [facility] Stop: 02/06/21 07:59 Last Admin: 01/09/21 21:42 Dose: 1 ea Documented by: Miscellaneous (Carbohydrates For Hypoglycemia ) 15 - 30 gm PO UD PRN PRN Reason: Hypoglycemia Treatment Stop: 02/08/21 01:29 Last Admin: 01/09/21 01:22 Dose: 15 gm Documented by: Miscellaneous Information (Pharmacy Glycemic Mgmt Consult) 1 ea N/A UD PRN PRN Reason: Consult Stop: 02/06/21 07:44 Morphine Sulfate (Morphine Sulfate Cr 15 Mg Tabcr) 30 mg PO BID [facility] Stop: 01/21/21 08:59 Last Admin: 01/09/21 20:10 Dose: 30 mg Documented by: Multivitamins (Multivitamin Tab) 1 tab PO QAM [facility] Stop: 02/06/21 08:59 Last Admin: 01/09/21 08:01 Dose: 1 tab Documented by: Nitroglycerin (Nitroglycerin Sl 0.4 Mg/Tab Tab) 0.4 mg SL UD PRN PRN Reason: Chest Pain Stop: 02/06/21 06:18 Ondansetron HCl (Ondansetron Inj 2 Mg/Ml 2 Ml Vial) 4 mg IV Q6H PRN PRN Reason: Nausea Stop: 02/06/21 06:18 Last Admin: 01/08/21 08:35 Dose: 4 mg Documented by: Ondansetron HCl (Ondansetron 8mg Od Tab) 8 mg PO Q8H PRN PRN Reason: Nausea Stop: 02/06/21 06:18 Oxycodone HCl (Oxycodone Hcl Ir 5 Mg Tab (Immediate Release)) 5 mg PO Q4H PRN PRN Reason: severe pain Stop: 01/21/21 06:18 Last Admin: 01/09/21 23:54 Dose: 5 mg Documented by: Pantoprazole Sodium (Pantoprazole 40 Mg Tab) 40 mg PO QAM [facility] Stop: 02/06/21 08:59 Polyethylene Glycol (Polyethylene (Miralax) 17 Gm Pack) 17 gm PO DAILY PRN PRN Reason: Constipation Stop: 02/06/21 06:18 (1) Nausea & vomiting Vomiting Intractability: intractable Vomiting type: unspecified Qualified Code(s): R11.2 - Nausea with vomiting, unspecified
[2021-01-10] MEDS ORDERED: ONDANSETRON INJ 2 MG/ML 2 ML VIAL ONE (08:31)
[2021-01-10] MEDS ORDERED: PROPOFOL IV EMULSION 10 MG/ML 20 ML VIAL IV ONE (08:31)
--- NOTE | 2021-01-10 08:36 | History & Physical Bridge Note ---
Date of Service January 10, 2021 History & Physical Bridge Note I have examined the patient, reviewed the History & Physical and in the interval since the performance of the History & Physical I have noted the following changes of clinical significance: no changes noted. The patient is to undergo upper endoscopy today for history of nausea and vomiting and abnormal imaging. We have discussed the risks to include bleeding, infection, perforation, pain and need for follow-up studies.
--- NOTE | 2021-01-10 09:13 | GI REPORT ---
Patient Name: Jeff Hamilton Procedure Date: 01/10/2021 8:51 AM Date of : 1965 Admit Type: Inpatient Age: 55 Gender: Male Attending MD: Marli Chaves DO Procedure: Upper GI endoscopy Providers: Marli Chaves DO Referring MD: Lorne Segal Md Indications: Abnormal CT of the GI tract, Nausea with vomiting Medicines: Monitored Anesthesia Care Complications: No immediate complications. Estimated blood loss: Minimal. Estimated Blood Loss: Estimated blood loss was minimal. Procedure: Pre-Anesthesia Assessment: - Prior to the procedure, a History and Physical was performed, and patient medications, allergies and sensitivities were reviewed. The patient's tolerance of previous anesthesia was reviewed. - The risks and benefits of the procedure and the sedation options and risks were discussed with the patient. All questions were answered and informed consent was obtained. - Patient identification and proposed procedure were verified prior to the procedure by the physician, the nurse and the airframe technician. The procedure was verified in the procedure room. - Pre-procedure physical examination revealed no contraindications to sedation. - ASA Grade Assessment: III - A patient with severe systemic disease. - After reviewing the risks and benefits, the patient was deemed in satisfactory condition to undergo the procedure. - The anesthesia plan was to use monitored anesthesia care (MAC). - Immediately prior to administration of medications, the patient was re-assessed for adequacy to receive sedatives. - The heart rate, respiratory rate, oxygen saturations, blood pressure, adequacy of pulmonary ventilation, and response to care were monitored throughout the procedure. - The physical status of the patient was re-assessed after the procedure. After obtaining informed consent, the endoscope was passed under direct vision. Throughout the procedure, the patient's blood pressure, pulse, and oxygen saturations were monitored continuously. The Endoscope was introduced through the mouth, with the intention of advancing to the duodenum. The scope was advanced to the gastric body before the procedure was aborted. Medications were given. The upper GI endoscopy was accomplished without difficulty. The patient tolerated the procedure well. Findings: LA Grade C (one or more mucosal breaks continuous between tops of 2 or more mucosal folds, less than 75% circumference) esophagitis with no bleeding was found in the middle third of the esophagus. A large amount of food (residue) was found in the gastric body. Impression: - LA Grade C esophagitis. - A large amount of food (residue) in the stomach. - No specimens collected. Recommendation: - [facility]. -Repeat upper endoscopy to be scheduled with a liquid diet for 48 hours in advance in addition to Reglan every 6 hours. This can be done as an outpatient if the patient is to be discharged Marli Chaves D.O. Marli Chaves, 01/10/2021 9:13:06 AM This report has been signed electronically. Note Initiated On: 01/10/2021 8:51 AM Number of Addenda: 0 I attest to the content of the Intraoperative Record and orders documented therein, exceptions below {[id number]}
--- NOTE | 2021-01-10 09:14 | Communication Note ---
Date of Service: January 10, 2021 The patient underwent attempted upper endoscopy today. He was found to have severe esophagitis of the midesophagus. Unfortunately a complete upper end oscopy could not be performed due to retained stomach contents. Would recommend outpatient upper endoscopy in 2 to 4 weeks Liquid diet for 48 hours in advance Reglan every 4-6 hours for 48 hours in advance
[2021-01-10] MEDS ORDERED: METOCLOPRAMIDE HCL INJ 5 MG/ML 2 ML VIAL ONE (09:16)
[2021-01-10] MEDS ORDERED: HEPARIN 100 UNIT/ML 5ML FLUSH ONE (09:37)
--- NOTE | 2021-01-10 09:56 | Anesthesiology Progress Note ---
Date of Service January 10, 2021 Anesthesia Post Procedure Vital Signs Vital Signs: Temp Pulse Pulse Pulse Resp BP BP 01/10/21 09:36 73 16 142/79 H 01/10/21 09:21 70 16 105/60 01/10/21 09:12 66 16 97/54 L 01/10/21 08:19 36.0 C L 82 16 213/112 H 01/10/21 08:01 36.5 C 78 196/94 H 01/10/21 07:57 77 01/10/21 03:44 36.4 C L 81 18 168/88 H 01/10/21 00:00 75 01/09/21 23:13 36.3 C L 76 16 163/89 H 01/09/21 19:16 36.5 C 77 18 119/67 01/09/21 15:31 36.6 C 20 96/60 L 01/09/21 14:51 81 01/09/21 11:44 36.1 C L 78 20 137/83 Pulse Ox 01/10/21 09:36 97 01/10/21 09:21 96 01/10/21 09:12 100 01/10/21 08:19 99 01/10/21 08:01 98 01/10/21 07:57 01/10/21 03:44 98 01/10/21 00:00 01/09/21 23:13 100 01/09/21 19:16 99 01/09/21 15:31 99 01/09/21 14:51 01/09/21 11:44 98 Pain Intensity Bilateral Abdomen: Pain Intensity: 7 Transfer of Care Handoff Completed per policy Notes Mental Status: alert / awake / arousable and participated in evaluation Patient Amnestic to Procedure: Yes Nausea / Vomiting: adequately controlled Pain: adequately controlled Airway Patency, RR, SpO2: stable & adequate BP & HR: stable & adequate Hydration State: stable & adequate Anesthetic Complications: no major complications apparent and Pt Satisfied with anesthetic care
[2021-01-10] MEDS: METOCLOPRAMIDE HCL INJ 5 MG/ML 2 ML VIAL IV SCH ×2 (10:06→17:07)
[2021-01-10] MEDS: ADVANCED PROBIOTIC 1250 MG CAPSULE PO SCH (10:09)
[2021-01-10] MEDS: MULTIVITAMIN TAB PO SCH (10:09)
[2021-01-10] MEDS: amLODIPine BESYLATE 5 MG TAB PO SCH (10:09)
[2021-01-10] MEDS: ESCITALOPRAM OXALATE 10 MG TAB PO SCH (10:09)
[2021-01-10] MEDS: GABAPENTIN 100 MG CAP PO SCH ×3 (10:10→20:00)
[2021-01-10] MEDS: MAGNESIUM OXIDE 400 MG TAB PO SCH ×2 (10:10→20:00)
[2021-01-10] MEDS: levETIRAcetam 250 MG TAB PO SCH ×2 (10:10→20:00)
[2021-01-10] MEDS: PANTOprazole 40 MG in SYRINGE 0 ML IV SCH ×2 (10:11→19:59)
[2021-01-10] MEDS: FLUTICASONE/VILANTEROL 100/25MCG 14 PUFFS/INHALER INH SCH (10:11)
[2021-01-10] MEDS: MoRPHine SULFATE CR 15 MG TABCR PO SCH ×2 (10:13→19:59)
[2021-01-10] MEDS: CHECK CLONIDINE PATCH PLACEMENT SCH ×2 (10:19→17:07)
[2021-01-10] MEDS ORDERED: INSULIN HUMAN REGULAR SC SCH (12:00)
--- NOTE | 2021-01-10 13:58 | Pharmacy Report ---
Pharmacy Glycemic Short Note 2 - Date of Service January 10, 2021 - Glycemic Short BSG Results (Last 24 hours): 01/09/21 01/09/21 01/09/21 14:59 16:50 19:59 Glucose POC Glucose 137 H 70 31 L* 01/09/21 01/09/21 01/09/21 20:00 20:22 23:47 Glucose POC Glucose 31 L* 130 H 265 H 01/10/21 01/10/21 01/10/21 05:29 05:58 07:25 Glucose 117 H POC Glucose 139 H 108 H 01/10/21 11:33 Glucose POC Glucose 131 H OUTPATIENT ANTIDIABETIC REGIMEN: * Lantus 7 units HS+ Humalog ASSESSMENT: 01/10 * Pt with HYPOGLYCEMIA last evening- regular insulin likely stacking * Will change back to Sq basal bolus insulin regimen with Lantus + Regular insulin per previous admissions data and titrate based on BSG trends. 01/09 * Jeff had poor glycemic control over the last 24 hours. He was hyperglycemia most of the day and then hypoglycemic overnight. Unsure what the cause of hypoglycemia was - he did not receive any novolog at bedtime. * AM BSG = 241 mg/dL. Will increase regular insulin scale * Carbs consumed with breakfast were not covered, therefore I will not make changes to novolog order * If glycemic control is not improved on 01/10 am, may need to resume Lantus rather than regular insulin q6 Background * Mr Hamilton is a 55 y/o M with T2DM who presents with with N/V. He is currently NPO. * Per previous visit, scheduled regular insulin q 6 hours works well for patient when NPO. Since it is sliding, it functions as both basal and correctional. * Since BSG > 300 mg/dL currently, will give small insulin bolus (3 units IV) to produce rapid decrease in BSG. PLAN FOR INPATIENT GLYCEMIC CONTROL: * Basal insulin * Lantus 10 units SQ daily @ 1800 * Bolus insulin * Regular insulin ACHS * Goal Range = 110-140 * CF = 50 * CR = 18 PLAN FOR DISCHARGE: * close follow up with [facility] clinic
--- NOTE | 2021-01-10 15:38 | Surgery Progress Note ---
Date of Service January 10, 2021 Assessment & Plan (1) Nausea & vomiting: (2) Abnormal finding on CT scan: Plan: 55-year-old gentleman with nausea and vomiting. He has his chronic abdominal pain, which she states is no worse than normal. He has no focal tenderness in the right lower quadrant. EGD demonstrated severe esophagitis, and he is scheduled for a second EGD on Saturday.. White blood cell count normal. No evidence of appendicitis. We will sign off for now. Call with any questions or concerns. Admission and Anticipated Discharge Date Admission Date: January 07, 2021 Subjective He is doing well today. He continues to have his chronic abdominal pain. EGD demonstrated severe esophagitis. Physical Exam Constitutional: WD/WN, vitals as above + lethargic Eyes: PERRL, conjunctivae normal, anicteric sclerae Neck: trachea midline, no thyromegaly Respiratory: normal respiratory effort, lungs clear to auscultation Cardiovascular: RRR, no murmur, no edema Gastrointestinal (Abdomen): normal bowel sounds, soft, nontender, no hepatosplenomegaly Inspection/Auscultation: abdomen normal to inspection; abdomen not distended Percussion/Palpation: + abdomen tender (Mild diffuse tenderness) and abdomen soft; no guarding and abdomen not rigid Musculoskeletal: Extremities: no cyanosis and no clubbing Skin: no rashes, warm and dry Psychiatric: A+Ox3, euthymic affect Lymphatic: no cervical lymphadenopathy Results & Data ([facility]) Vital Signs (Past 12 Hours) Vital Signs Temp Pulse Pulse Pulse Resp BP BP 01/10/21 14:56 76 01/10/21 12:17 36.5 C 80 20 162/88 H 01/10/21 09:36 73 16 142/79 H 01/10/21 09:21 70 16 105/60 01/10/21 09:12 66 16 97/54 L 01/10/21 08:19 36.0 C L 82 16 213/112 H 01/10/21 08:01 36.5 C 78 196/94 H 01/10/21 07:57 77 01/10/21 03:44 36.4 C L 81 18 168/88 H Pulse Ox 01/10/21 14:56 01/10/21 12:17 100 01/10/21 09:36 97 09/07/21 09:21 96 01/10/21 09:12 100 01/10/21 08:19 99 01/10/21 08:01 98 01/10/21 07:57 01/10/21 03:44 98 (1) Nausea & vomiting Vomiting Intractability: intractable Vomiting type: unspecified Qualified Code(s): R11.2 - Nausea with vomiting, unspecified
[2021-01-10] MEDS ORDERED: INSULIN GLARGINE SOLOSTAR 100 UNITS/ML 3 ML PEN SC SCH (18:00)
[2021-01-10] MEDS: CARBOHYDRATES FOR HYPOGLYCEMIA PO PRN (19:58)
[2021-01-11] MEDS: METOCLOPRAMIDE HCL INJ 5 MG/ML 2 ML VIAL IV SCH ×5 (01:48→20:19)
[2021-01-11] MEDS: CHECK CLONIDINE PATCH PLACEMENT SCH ×3 (01:48→15:34)
[2021-01-11] MEDS: oxyCODONE HCL IR 5 MG TAB (IMMEDIATE RELEASE) PO PRN ×2 (05:29→21:24)
[2021-01-11] MEDS ORDERED: HYDROmorphone INJ 0.5 MG/0.5 ML SYR IV STA (06:12)
[2021-01-11 07:40] LABS: BUN Creatinine Ratio 8.4 (10-20); Calcium 7.6 mg/dl (8.5-10.1); Creatinine Clr Calc Pharmacy 25.6 ml/min; Est GFR (African American) 24.4 ml/min; Est GFR (Non-African American) 21.1 ml/min
[2021-01-11] MEDS: INSULIN ASPART 100 UNITS/ML 3 ML PEN SC SCH ×4 (08:43→21:27)
[2021-01-11] MEDS: levETIRAcetam 250 MG TAB PO SCH ×2 (08:45→20:20)
[2021-01-11] MEDS: GABAPENTIN 100 MG CAP PO SCH ×3 (08:45→20:19)
[2021-01-11] MEDS: PANTOprazole 40 MG in SYRINGE 0 ML IV SCH ×2 (08:45→20:56)
[2021-01-11] MEDS: MAGNESIUM OXIDE 400 MG TAB PO SCH ×2 (08:45→20:20)
[2021-01-11] MEDS: ADVANCED PROBIOTIC 1250 MG CAPSULE PO SCH (08:46)
[2021-01-11] MEDS: MULTIVITAMIN TAB PO SCH (08:46)
[2021-01-11] MEDS: ESCITALOPRAM OXALATE 10 MG TAB PO SCH (08:46)
[2021-01-11] MEDS: FLUTICASONE/VILANTEROL 100/25MCG 14 PUFFS/INHALER INH SCH (08:46)
[2021-01-11] MEDS: CYCLOBENZAPRINE HCL 5 MG TAB PO PRN (08:46)
[2021-01-11] MEDS: amLODIPine BESYLATE 5 MG TAB PO SCH (08:47)
[2021-01-11] MEDS: MoRPHine SULFATE CR 15 MG TABCR PO SCH ×2 (08:49→20:18)
--- NOTE | 2021-01-11 11:09 | Gastroenterology Progress Note ---
Date of Service January 11, 2021 Assessment & Plan (1) Esophagitis: Plan: Cont Pantoprazole 40mg IV BID Add Sucralfate 1gm QID. EGD . (2) Gastroparesis: Plan: Cont Reglan 10mg IV Q 6hr. Clear liquids po. Admission and Anticipated Discharge Date Admission Date: January 07, 2021 Supervising Physician Co-Signing Physician Notes Patient with a history of gastroparesis, this is likely being made worse with use of chronic narcotics. We could certainly have the patient try a Carafate slurry. We have been asked to do a repeat upper endoscopy during his inpatient stay. Would recommend a liquid diet today continue use of Reglan and attempt to do upper endoscopy tomorrow. Should we not be able to complete the exam tomorrow he would then need to be rescheduled as an outpatient as initially suggested. Subjective 55 yr old male with COPD, non-small cell lung cancer, stage III, status post surgery, incomplete chemotherapy secondary to intolerance; gastroparesis, status post gastric pacemaker x 2, most recently in May 2020;DM-1 and others. Chronic pain, on narcotics Today: burning pain in the lower chest. Also some pain in the LUQ and RUQ. Was able to eat raisin bran for breakfast, no vomiting. Had EGD yesterday with grade C esophagitis, large amt of food in the stomach. Pantoprazole 40mg IV BID. No improvement in CP in the past day. Pt is requesting repeat EGD on Saturday - for upper abdomen pain. Review of Systems Review of Systems: ROS: Gen: + weakness, pain Eyes: No eye redness, or pain, no recent vision changes Resp: No SOB, no cough Cardio: No palpitations/irregular beats GI: As per HPI, otherwise negative : Denies pain on urination Skin: No jaundice, itching or new rashes Physical Exam Constitutional: well developed, + ill appearing, + thin and cooperative very uncomfortable, grasping his lower chest Eyes: PERRL, conjunctivae normal, anicteric sclerae Respiratory: normal respiratory effort, lungs clear to auscultation normal respiratory effort and able to speak in complete sentences; no respiratory distress, no labored breathing, does not use accessory muscles and no cough Cardiovascular: RRR, no murmur, no edema Gastrointestinal (Abdomen): normal bowel sounds, soft, nontender, no hepatosplenomegaly Inspection/Auscultation: abdomen normal to inspection and normal bowel sounds; abdomen not distended and no abdominal edema Percussion/Palpation: + abdomen tender (Mild diffuse adbdominal msk tenderness. No signs of acute abdomen.) and abdomen soft; no guarding and abdomen not rigid Skin: no rashes, warm and dry normal turgor and + pallor Neurologic: PERRL, EOMI, accommodation nl, no face palsy, no dysarthria awake; not confused Psychiatric: A+Ox3, euthymic affect Orientation: alert, oriented x 3 and cooperative Results & Data ([facility]) Vital Signs (Past 12 Hours) Vital Signs Temp Pulse Resp BP Pulse Ox 01/11/21 08:14 37.0 C 80 16 178/92 H 97 01/11/21 03:16 36.6 C 81 18 155/72 H 98 Laboratory Results WBC 4.35, Hb 7.9, Hct 24.1, Na 138, K 5, Cl 100, CO2 23, BUN 26, Cr 3.15, Glucose Diagnostic Findings EGD 01/10/21: - LA Grade C esophagitis. - A large amount of food (residue) in the stomach. - No specimens collected.
--- NOTE | 2021-01-11 13:06 | Pharmacy Report ---
Pharmacy Glycemic Short Note 2 - Date of Service January 11, 2021 - Glycemic Short BSG Results (Last 24 hours): 01/10/21 01/10/21 01/10/21 16:36 19:57 20:00 Glucose POC Glucose 150 H 37 L* 38 L* 01/10/21 01/11/21 01/11/21 20:16 01:54 06:39 Glucose 104 H POC Glucose 89 105 H 01/11/21 01/11/21 07:44 11:27 Glucose POC Glucose 104 H 108 H OUTPATIENT ANTIDIABETIC REGIMEN: * Lantus 7 units HS+ Humalog ASSESSMENT: 01/11 * Patient with hypoglycemia again last evening following 7 units dose of Novolog with dinner * Switched to Lantus, will switch SC regular to Novolog today and set a maximum one-time dose of Novolog at 5 units * Patient is NPO after midnight for planned upper endoscopy - will decrease Lantus this evening 01/10 * Pt with HYPOGLYCEMIA last evening- regular insulin likely stacking * Will change back to Sq basal bolus insulin regimen with Lantus + Regular insulin per previous admissions data and titrate based on BSG trends. 01/09 * Jeff had poor glycemic control over the last 24 hours. He was hyperglycemia most of the day and then hypoglycemic overnight. Unsure what the cause of hypoglycemia was - he did not receive any novolog at bedtime. * AM BSG = 241 mg/dL. Will increase regular insulin scale * Carbs consumed with breakfast were not covered, therefore I will not make changes to novolog order * If glycemic control is not improved on 01/10 am, may need to resume Lantus rather than regular insulin q6 Background * Mr Hamilton is a 55 y/o M with T2DM who presents with with N/V. He is currently NPO. * Per previous visit, scheduled regular insulin q 6 hours works well for patient when NPO. Since it is sliding, it functions as both basal and correctional. * Since BSG > 300 mg/dL currently, will give small insulin bolus (3 units IV) to produce rapid decrease in BSG. PLAN FOR INPATIENT GLYCEMIC CONTROL: * Basal insulin - decrease * Lantus 6 units SQ daily @ 1800 * Bolus insulin * Novolog ACHS or q6h if NPO * Goal BSG Range: Low 120 mg/dL, High 160 mg/dL * Correction Factor: 55 mg/dL/unit * INS:Carbohydrate ratio = 18 g/unit * MAXIMUM OF 5 UNITS PER ADMINISTRATION PLAN FOR DISCHARGE: * close follow up with [facility]
[2021-01-11] MEDS ORDERED: INSULIN GLARGINE SOLOSTAR 100 UNITS/ML 3 ML PEN SC SCH ×2 (18:00)
--- NOTE | 2021-01-11 18:20 | Hospitalist Progress Note ---
Date of Service January 11, 2021 Assessment & Plan (1) Nausea & vomiting: (2) Abnormal finding on CT scan: (3) Gastroparesis: Plan: 55-year-old male with NSCC of lung stage III s/p surgery and incomplete chemo secondary to intolerance, COPD, ulcerative colitis, type I DM with complication [gastroparesis, PDN], chronic pain on narcotics, HTN, past tobacco abuse, CKD [baseline around 2], chronic anemia and seizure disorder came in 01/07 with chief complaint of abdominal pain associated with nausea and vomiting. Is being managed for the following: #. Nausea and vomiting: H/o gastroparesis,and gastric pacemaker. Also on narcotics for chronic pain. Presented with nausea, vomiting and diarrhea Admitting CTAP suggestive of esophagitis and redemonstration of gliotic lesion within left 9th rib suggestive of metastatic disease Surgery was consulted for possible appendicitis, has signed offno evidence of appendicitis 01/10 status post EGDsuggestive of grade C esophagitis, had large amount of food in the stomach and hence no specimen collected Patient getting rescoped tomorrow, currently on liquid diet, n.p.o. midnight, Reglan increased to 4 times a day, Heparin held, n.p.o. midnight Nausea and vomiting under control, continue with antiemetics After her scope, resume heparin/diet, Reglan 3 times a day. #. Chronic kidney disease stage III: Possible acute kidney injury component. His baseline creatinine used to be 2, but last admission on discharge it was 2.4 and on current admission 2.6. Creatinine 3.15 today, continue to monitor. Monitor renal function c/w iv fluids - gentle #. Hypertensive urgency: Even after hydralazine and Lopressor in the ER, his blood pressure was still running high . Question of withdrawal from his pain medicine. The patient had nausea at home, but he states he was able to take his pills at home. Continue with home medications of clonidine patch, amlodipine. IV labetalol p.r.n. and closely monitor. BP now improving Cont. to closely monitor #. History of urine retention: CT reviewed, monitor urine output. Bladder scan as needed. #. History of left ring finger wound: Last admission he received daptomycin and ceftriaxone, completed Keflex on 01/08/21. Seems to be healing well. #. Type 1 diabetes: His recent HbA1c was 7.4%. Continue his long-acting insulin sliding scale. Monitor the blood sugars. #. Non-small cell lung cancer, stage III, status post surgery, incomplete chemotherapy secondary to tolerance. Last admission,lesion noted on left 9th rib. Needs to follow up with PCP and oncologist. #. History of seizure disorder, currently on Keppra 750 b.i.d. If not able to take p.o., then need to change to IV. #. Chronic anemia: Hemoglobin 10.2, seems stable. Will follow the repeat labs. #. History of tobacco abuse. #. Chronic pain: Continue his home pain medications. #. Depression: Continue Lexapro. #. History of chronic obstructive pulmonary disease: Continue home inhalers. DVT prophylaxis: heparin subQ currently held, resume after the scope DISPOSITION: Closely monitor in the [employer] service to help with discharge planning. Code: Full Admission and Anticipated Discharge Date Admission Date: January 07, 2021 Subjective Patient was sitting up in bed, NAD, ready to eat his breakfast, on room air. Patient reports having left upper belly pain, intensity closer to his baseline, wanted to make sure if there is any redness or swelling enhanced asked me to see it. No swelling or redness noted. No excruciating tenderness on palpation over raise gastric pacemaker implant. Nausea or vomiting under control. Eating okay. No other review of symptoms positive. Physical Exam Physical Exam: GENERAL: Alert and oriented x3. NAD, on RA. HEENT: No pallor, no icterus. Pupils equal, round and reactive to light. Oral mucosa moist. NECK: No JVD, no neck masses. HEART: S1 and S2 heard. Regular rate and rhythm. Systolic murmur over aortic and pulmonic area, no gallop. RESPIRATORY SYSTEM: Normal AP diameter. No accessory muscle use. No wheezing, no crackles. ABDOMEN: Soft, bowel sounds present, epigastric tenderness, tenderness over left upper quadrant, healed abdominal scars over left and right abdomen, gastric pacemaker in situ x left side CENTRAL NERVOUS SYSTEM: Alert and oriented x3. No facial droop. Speech is clear. Obeys simple commands. Moves extremities. EXTREMITIES: No edema, no erythema seen. Results & Data Results & Data ([facility]) Vital Signs (Past 12 Hours) Vital Signs Temp Pulse Resp BP Pulse Ox 01/11/21 16:13 36.5 C 83 16 156/77 H 95 01/11/21 11:10 36.7 C 85 16 161/90 H 96 01/11/21 08:14 37.0 C 80 16 178/92 H 97 (1) Nausea & vomiting Vomiting Intractability: intractable Vomiting type: unspecified Qualified Code(s): R11.2 - Nausea with vomiting, unspecified
[2021-01-11] MEDS: SODIUM CHLORIDE 0.9% 1000ML 1,000 ML IV SCH (20:18)
[2021-01-12] MEDS: CHECK CLONIDINE PATCH PLACEMENT SCH ×2 (00:45→10:44)
[2021-01-12] MEDS: oxyCODONE HCL IR 5 MG TAB (IMMEDIATE RELEASE) PO PRN (03:16)
[2021-01-12] MEDS: METOCLOPRAMIDE HCL INJ 5 MG/ML 2 ML VIAL IV SCH ×2 (03:17→10:47)
[2021-01-12 07:07] LABS: Hematocrit (blood only) 25.1 % (42-52); Hemoglobin 8.1 g/dL (14.0-18.0); Mean Corpuscular Hemoglobin 29.7 pg (25-34); Mean Corpuscular Hgb Conc 32.3 g/dL (32-36); Mean Corpuscular Volume 91.9 fL (80-100); Platelet Count 275 K/uL (130-400); RDW Coefficient of Variation 14.2 % (11.5-14.5); RDW Standard Deviation 47.3 fL (36.4-46.3); Red Blood Count 2.73 M/uL (4.7-6.1); White Blood Count 4.76 K/uL (4.8-10.8)
[2021-01-12 07:43] LABS: BUN Creatinine Ratio 10.8 (10-20); Calcium 7.9 mg/dl (8.5-10.1); Creatinine Clr Calc Pharmacy 28.1 ml/min; Est GFR (African American) 27.3 ml/min; Est GFR (Non-African American) 23.6 ml/min; Potassium 5.3 mmol/L (3.5-5.1)
--- NOTE | 2021-01-12 08:52 | Anesthesiology Consultation ---
Date of Service January 12, 2021 Assessment & Plan Chart Review Chart Review: Acceptable Risk for Surgery Consults Requested none History Surgery Operation Date: 01/10/21 16:00 Proposed Procedures p Esophagogastroduodenoscopy Dr Anastacio Chaves, DO Operation Date: 01/12/21 16:30 Proposed Procedures p Esophagogastroduodenoscopy Dr Anastacio Chaves, DO Height/Weight Height: 5 ft 8 in Weight: 80 kg Allergies Allergy/AdvReac Type Severity Reaction Status Date / Time bee venom protein (honey bee) Allergy Mild SWELLING Verified 01/10/21 08:18 AT SITE, SOB Penicillins Allergy Unknown "SINCE Verified 01/10/21 08:18 "-Amoxicillin cat dander Allergy Unknown Verified 01/10/21 08:18 Medications Home Medications Medication Instructions Recorded Confirmed Last Taken albuterol sulfate 90 mcg/actuation 2 puff INHALATION Q4H PRN 05/05/18 01/07/21 12/19/20 aerosol inhaler epinephrine 0.3 mg/0.3 mL 0.3 mg IM Q3H PRN 05/05/18 01/07/21 04/28/18 injection, auto-injector (EpiPen) insulin glargine 100 unit/mL (3 7 unit SUBCUT HS 05/05/18 01/07/21 12/19/20 mL) subcutaneous pen (Basaglar KwikPen U-100 Insulin) insulin lispro 100 unit/mL 1 sliding scale dose SUBCUT UD 05/05/18 01/07/21 12/19/20 21:00 subcutaneous cartridge (Humalog 6 U-100 Insulin) multivitamin 1 tab PO QAM 05/05/18 01/07/21 12/19/20 pantoprazole 40 mg tablet,delayed 40 mg PO QAM 05/05/18 01/07/21 12/19/20 release clonidine 0.2 mg/24 hr weekly 1 patch TRANSDERMAL WK 01/23/20 01/07/21 12/20/20 transdermal patch escitalopram oxalate 10 mg tablet 10 mg PO DAILY 01/24/20 01/07/21 12/19/20 (Lexapro) fluticasone 250 mcg-salmeterol 50 1 inh INHALATION BID 01/24/20 01/07/21 12/19/20 mcg/dose blistr powdr for inhalation (Wixela Inhub) amlodipine 5 mg tablet (Norvasc) 5 mg PO QAM #30 tab 01/29/20 01/07/21 12/19/20 levetiracetam 750 mg tablet 750 mg PO BID 30 Days #60 tab 01/29/20 01/07/21 12/19/20 (Keppra) cyclobenzaprine 5 mg tablet 5 mg PO TID PRN 12/20/20 01/07/21 12/19/20 ondansetron 8 mg disintegrating 8 mg PO Q8H PRN 12/20/20 01/07/21 12/19/20 18:00 tablet L.acidop,casei,lactis,rham-B.lact,jose 2 cap PO DAILY #30 cap 12/29/20 01/07/21 Unknown 625 mg (10 billion cell) capsule (Advanced Probiotic) cephalexin 500 mg capsule 500 mg PO BID 10 Days #20 cap 12/29/20 01/07/21 Unknown gabapentin 100 mg capsule 100 mg PO TID #30 cap 12/29/20 01/07/21 Unknown magnesium oxide 400 mg (241.3 mg 400 mg PO BID #30 tab 12/29/20 01/07/21 Unknown magnesium) tablet morphine 30 mg tablet,extended 30 mg PO Q12H #10 tab 12/29/20 01/07/21 Unknown release (MS Contin) oxycodone 5 mg tablet 5 mg PO Q4H PRN #10 tab 12/29/20 01/07/21 Unknown Active Medications Generic Name Dose Route Start Last Admin Trade Name Freq PRN Reason Stop Dose Admin Acetaminophen 650 mg 01/07/21 06:19 01/07/21 12:09 Acetaminophen 325 Mg Tab PO 02/06/21 06:18 650 mg Q4H PRN Administration Pain or Fever Amlodipine Besylate 5 mg 01/07/21 09:00 01/11/21 08:47 Amlodipine Besylate 5 Mg Tab PO 02/06/21 08:59 5 mg QAM DAMIR Administration Clonidine HCl 1 patch 01/07/21 09:00 01/07/21 09:57 Clonidine Hcl 0.2 Mg/24 Hr Transderm Sys TD 02/06/21 08:59 1 patch Sa@0900 DAMIR Administration Cyclobenzaprine HCl 5 mg 01/07/21 06:19 01/11/21 08:46 Cyclobenzaprine Hcl 5 Mg Tab PO 02/06/21 06:18 5 mg TID PRN Administration Muscle Spasm Dextrose 25 - 50 ml 01/09/21 01:30 01/09/21 20:07 Dextrose 50% 50 Ml Syringe IV 02/08/21 01:29 50 ml UD PRN Administration Hypoglycemia Protocol Protocol Escitalopram Oxalate 10 mg 01/07/21 09:00 01/11/21 08:46 Escitalopram Oxalate 10 Mg Tab PO 02/06/21 08:59 10 mg DAILY DAMIR Administration Fluticasone/Vilanterol 1 puffs 01/07/21 09:00 01/11/21 08:46 Fluticasone/Vilanterol 100/25mcg 14 Puffs/Inhaler INH 02/06/21 08:59 1 pu ffs DAILY DAMIR Administration Protocol Gabapentin 100 mg 01/07/21 09:00 01/11/21 20:19 Gabapentin 100 Mg Cap PO 02/06/21 08:59 100 mg TID DAMIR Administration Heparin Sodium (Porcine) 5,000 units 01/07/21 07:00 01/10/21 05:11 Heparin Sod 5,000 Unit/0.5 Ml Vial SQ 02/06/21 06:59 Not Given Q8 DAMIR Pantoprazole Sodium 40 mg/ 10 mls @ 5 mls/min 01/07/21 09:00 01/11/21 20:56 Syringe IV 02/06/21 08:59 5 mls/min BID DAMIR Administration Sodium Chloride 1,000 mls @ 80 mls/hr 01/11/21 19:00 01/11/21 20:18 Nss 1000ml IV 02/10/21 18:59 80 mls/hr .[id number] DAMIR Administration Insulin Aspart 0 units 01/11/21 07:30 01/11/21 21:27 Insulin Aspart 100 Units/Ml 3 Ml Pen SC 02/10/21 07:29 Not Given ACHS DAMIR Insulin Glargine 6 units 01/11/21 18:00 01/11/21 17:23 Insulin Glargine Solostar 100 Units/Ml 3 Ml Pen SC 02/09/21 17:59 6 units DAILY@1800 DAMIR Administration Labetalol HCl 10 mg 01/07/21 06:19 01/09/21 08:13 Labetalol Hcl Iv 5 Mg/Ml 20ml IV 02/06/21 06:18 10 mg Q4H PRN Administration Hypertension Lactobacillus Acidoph/Casei/Rhamnos 2 cap 01/07/21 09:00 01/11/21 08:46 Advanced Probiotic 1250 Mg Capsule PO 02/06/21 08:59 2 cap DAILY DAMIR Administration Levetiracetam 750 mg 01/07/21 09:00 01/11/21 20:20 Levetiracetam 250 Mg Tab PO 02/06/21 08:59 750 mg BID DAMIR Administration Magnesium Oxide 400 mg 01/07/21 09:00 01/11/21 20:20 Magnesium Oxide 400 Mg Tab PO 02/06/21 08:59 400 mg BID DAMIR Administration Metoclopramide HCl 10 mg 01/11/21 09:00 01/12/21 03:17 Metoclopramide Hcl Inj 5 Mg/Ml 2 Ml Vial IV 02/10/21 08:59 10 mg Q6H DAMIR Administration Miscellaneous 1 ea 01/07/21 08:59 01/07/21 09:46 Remove Clonidine Patch N/A 02/06/21 08:58 1 ea [id number] DAMIR Administration Miscellaneous 1 ea 01/07/21 08:00 01/12/21 00:45 Check Clonidine Patch Placement N/A 02/06/21 07:59 1 ea QS DAMIR Administration Miscellaneous 15 - 30 gm 01/09/21 01:30 01/10/21 19:58 Carbohydrates For Hypoglycemia PO 02/08/21 01:29 15 gm UD PRN Administration Hypoglycemia Treatment Morphine Sulfate 30 mg 01/07/21 09:00 01/11/21 20:18 Morphine Sulfate Cr 15 Mg Tabcr PO 01/21/21 08:59 30 mg BID DAMIR Administration Multivitamins 1 tab 01/07/21 09:00 01/11/21 08:46 Multivitamin Tab PO 02/06/21 08:59 1 tab QAM DAMIR Administration Ondansetron HCl 4 mg 01/07/21 06:19 01/08/21 08:35 Ondansetron Inj 2 Mg/Ml 2 Ml Vial IV 02/06/21 06:18 4 mg Q6H PRN Administration Nausea Oxycodone HCl 5 mg 01/07/21 06:19 01/12/21 03:16 Oxycodone Hcl Ir 5 Mg Tab (Immediate Release) PO 01/21/21 06:18 5 mg Q4H PRN Administration severe pain NPO Date Last Intake of Fluids: 01/11/21 Time Last Intake of Fluids: 22:30 Date Last Intake of Solids: 01/11/21 Time Last Intake of Solids: 18:00 Past Medical History Medical History Acute dyspnea Acute hyponatremia Acute renal insufficiency IVAN (acute kidney injury) Anemia Chest pain No current chest pain...related to reflux per patient Chronic pain COPD (chronic obstructive pulmonary disease) Diabetes mellitus type 2, uncontrolled Diabetic autonomic neuropathy Diabetic peripheral neuropathy Discharge planning issues DVT prophylaxis Elevated d-dimer Gastroparesis "s/p gastric stimulator" Hypertension Hypomagnesemia Intractable nausea and vomiting 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 One 1 mm polyp in the ascending colon resected. One benign appearing 1 mm polyp in the rectum resected. Internal hemorrhoids; Dr. Demarco" H/O esophagogastroduodenoscopy "01/26/2015- LA Grade B reflux esophagitis, gastritis; Dr. Major" History of cholecystectomy History of tonsillectomy and adenoidectomy Hx of total knee arthroplasty S/P lobectomy of lung "left upper lobectomy for adenoCa" On 08/05/16 16:30 Edie Mcfarland wrote "L side @ [facility] 05/25/16" Status post insertion of intrathecal pump explanted Social History Smoking Status: Former smoker tobacco type: smokeless tobacco Hx Alcohol Use: No Alcohol type: beer alcohol intake frequency: holidays/special occasions only Hx Substance Use: Yes substance use type: opiates Substance Use Type Other:: fentanyl patch 24hrs a day-refused removal of 2 patches Last Used Substance: Just Prior to Arrival Last Used Substance Other:: Four hours ago Physical Exam Vital Signs Last Vital Signs Temp 36.3 C L 01/12/21 08:34 Pulse 86 01/12/21 08:34 Resp 18 01/12/21 08:34 BP 163/95 H 01/12/21 08:34 Pulse Ox 97 01/12/21 08:34 Testing Laboratory Results 01/12/21 06:49 01/12/21 06:49 Urine Color Yellow 01/08/21 14:27 Urine Appearance Clear (Clear) 01/08/21 14:27 Urine pH 6.0 (4.5-7.5) 01/08/21 14:27 Ur Specific Crooks 1.015 (1.000-1.030) 01/08/21 14:27 Urine Protein 4+ (Negative) H 01/08/21 14:27 Urine Glucose (UA) 1+ (Negative) H 01/08/21 14:27 Urine Ketones Negative (Negative) 01/08/21 14:27 Urine Nitrite Negative (Negative) 01/08/21 14:27 Ur Leukocyte Esterase Negative (Negative) 01/08/21 14:27 Urine WBC (Auto) 1-5 /hpf (0-5) 01/08/21 14:27 Urine RBC (Auto) 0-4 /hpf (0-4) 01/08/21 14:27 U Hyaline Cast (Auto) 5-10 /lpf (0-5) H 01/08/21 14:27 U Epithel Cells (Auto) >30 /lpf (0-5) H 01/08/21 14:27 Urine Bacteria (Auto) Negative (Negative) 01/08/21 14:27 01/12/21 07:26 POC Glucose 92
--- NOTE | 2021-01-12 09:15 | History & Physical Bridge Note ---
Date of Service January 12, 2021 History & Physical Bridge Note I have examined the patient, reviewed the History & Physical and in the interval since the performance of the History & Physical I have noted the following changes of clinical significance: no changes noted.. We have discussed the risks and benefits of upper endoscopy to include bleeding infection perforation pain aspiration and need for follow-up studies.
[2021-01-12] MEDS ORDERED: SODIUM CHLORIDE 0.45 % 1,000 ML IV SCH (09:30)
--- NOTE | 2021-01-12 09:40 | Communication Note ---
Date of Service: January 12, 2021 The patient underwent upper endoscopy this morning. He did have retained contents in the stomach still however, we were able to complete an upper endos copy. The examination was notable for esophagitis in the mid and lower esophagus likely related to reflux. Recommendations Consider stopping narcotics as they are likely driving his worsening miguel ángel roparesis Continue once daily PPI Continue Protonix slurry 4 times daily Try Erthromycin 250 mg po tid for 10 days The patient should follow-up with his normal motility provider to determine if his pacemaker may be adjusted Low residue diet Please call with any questions or concerns
--- NOTE | 2021-01-12 09:44 | Anesthesiology Progress Note ---
Date of Service January 12, 2021 Anesthesia Post Procedure Vital Signs Vital Signs: Temp Pulse Pulse Resp BP Pulse Ox 01/12/21 08:34 36.3 C L 86 18 163/95 H 97 01/12/21 07:32 79 01/12/21 07:17 36.6 C 85 18 101/51 L 90 01/12/21 03:47 36.5 C 80 18 166/88 H 98 01/12/21 00:00 82 01/11/21 23:05 36.4 C L 81 18 119/73 95 01/11/21 19:28 36.6 C 79 18 117/64 97 01/11/21 16:13 36.5 C 83 16 156/77 H 95 01/11/21 11:10 36.7 C 85 16 161/90 H 96 Pain Intensity Generalized: Pain Intensity: 8 Bilateral Abdomen: Pain Intensity: 7 Transfer of Care Handoff Completed per policy Notes Mental Status: alert / awake / arousable and participated in evaluation Patient Amnestic to Procedure: Yes Nausea / Vomiting: adequately controlled Pain: adequately controlled Airway Patency, RR, SpO2: stable & adequate BP & HR: stable & adequate Hydration State: stable & adequate Anesthetic Complications: no major complications apparent
--- NOTE | 2021-01-12 09:45 | GI REPORT ---
Patient Name: Jeff Hamilton Procedure Date: 01/12/2021 9:18 AM Date of : 1965 Admit Type: Inpatient Age: 55 Gender: Male Attending MD: Marli Chaves DO Procedure: Upper GI endoscopy Providers: Marli Chaves DO Referring MD: Abhishek Meier Md Indications: Epigastric abdominal pain Medicines: Monitored Anesthesia Care Complications: No immediate complications. Estimated blood loss: Minimal. Estimated Blood Loss: Estimated blood loss was minimal. Procedure: Pre-Anesthesia Assessment: - Prior to the procedure, a History and Physical was performed, and patient medications, allergies and sensitivities were reviewed. The patient's tolerance of previous anesthesia was reviewed. - The risks and benefits of the procedure and the sedation options and risks were discussed with the patient. All questions were answered and informed consent was obtained. - Patient identification and proposed procedure were verified prior to the procedure by the physician, the nurse and the residential substance abuse counselor. The procedure was verified in the procedure room. - Pre-procedure physical examination revealed no contraindications to sedation. - ASA Grade Assessment: IV - A patient with severe systemic disease that is a constant threat to life. - After reviewing the risks and benefits, the patient was deemed in satisfactory condition to undergo the procedure. - The anesthesia plan was to use monitored anesthesia care (MAC). - Immediately prior to administration of medications, the patient was re-assessed for adequacy to receive sedatives. - The heart rate, respiratory rate, oxygen saturations, blood pressure, adequacy of pulmonary ventilation, and response to care were monitored throughout the procedure. - The physical status of the patient was re-assessed after the procedure. After obtaining informed consent, the endoscope was passed under direct vision. Throughout the procedure, the patient's blood pressure, pulse, and oxygen saturations were monitored continuously. The Endoscope was introduced through the mouth, and advanced to the third part of duodenum. The upper GI endoscopy was accomplished without difficulty. The patient tolerated the procedure well. Findings: LA Grade C (one or more mucosal breaks continuous between tops of 2 or more mucosal folds, less than 75% circumference) esophagitis with no bleeding was found in the lower third of the esophagus. Biopsies were taken with a cold forceps for histology. The pathology specimen was placed into Bottle A. Estimated blood loss was minimal. A medium amount of food (residue) was found in the gastric body and in the gastric antrum. The examined duodenum was normal. Impression: - LA Grade C reflux esophagitis. Biopsied. - A medium amount of food (residue) in the stomach. - Normal examined duodenum. Recommendation: - [facility]. - Gastroparesis diet. - Use Protonix (pantoprazole) 40 mg PO daily. - Use sucralfate suspension 1 gram PO QID. - Try Erythromycin 250 mg TID for 10 days - Patient should follow-up with his motility specialist - Consider discontinuation of narcotic use as these could be worsening his underlying gastroparesis - Await pathology results. Marli Chaves D.O. Marli Chaves, DO 01/12/2021 9:44:59 AM This report has been signed electronically. Note Initiated On: 01/12/2021 9:18 AM Number of Addenda: 0 I attest to the content of the Intraoperative Record and orders documented therein, exceptions below {[id number]}
[2021-01-12] MEDS: INSULIN ASPART 100 UNITS/ML 3 ML PEN SC SCH ×2 (09:59→12:49)
[2021-01-12] MEDS ORDERED: PROPOFOL IV EMULSION 10 MG/ML 20 ML VIAL IV ONE (10:14)
[2021-01-12] MEDS ORDERED: oxyCODONE HCL IR 5 MG TAB (IMMEDIATE RELEASE) PO PRN (10:44)
[2021-01-12] MEDS: amLODIPine BESYLATE 5 MG TAB PO SCH (10:44)
[2021-01-12] MEDS: GABAPENTIN 100 MG CAP PO SCH ×2 (10:45→14:12)
[2021-01-12] MEDS: ESCITALOPRAM OXALATE 10 MG TAB PO SCH (10:45)
[2021-01-12] MEDS: FLUTICASONE/VILANTEROL 100/25MCG 14 PUFFS/INHALER INH SCH (10:45)
[2021-01-12] MEDS: levETIRAcetam 250 MG TAB PO SCH (10:46)
[2021-01-12] MEDS: MAGNESIUM OXIDE 400 MG TAB PO SCH (10:46)
[2021-01-12] MEDS: ADVANCED PROBIOTIC 1250 MG CAPSULE PO SCH (10:46)
[2021-01-12] MEDS: MULTIVITAMIN TAB PO SCH (10:47)
[2021-01-12] MEDS: PANTOprazole 40 MG in SYRINGE 0 ML IV SCH (10:49)
[2021-01-12] MEDS: SODIUM CHLORIDE 0.9% 1000ML 1,000 ML IV SCH (10:49)
[2021-01-12] MEDS: MoRPHine SULFATE CR 15 MG TABCR PO SCH (10:49)
--- NOTE | 2021-01-12 11:07 | Communication Note ---
Date of Service: January 12, 2021 EGD with findings of gastroparesis, and esophagitis, no other cause of abdominal pain seen. See EGD for instructions: - Gastroparesis diet. - Use Protonix (pantoprazole) 40 mg PO daily. - Use sucralfate suspension 1 gram PO QID. - Try Erythromycin 250 mg TID for 10 days - Patient should follow-up with his motility specialist - Consider discontinuation of narcotic use as these could be worsening his underlying gastroparesis. GI will sign off. Recall if needed.
[2021-01-12] MEDS ORDERED: PANTOprazole 40 MG TAB PO SCH (11:30)
[2021-01-12] MEDS ORDERED: SUCRALFATE 1 GM TAB PO SCH (13:00)
[2021-01-12] MEDS ORDERED: ERYTHROMYCIN 250 MG TABEC PO SCH (14:00)
--- NOTE | 2021-01-12 16:50 | Discharge Summary ---
Date of Service January 12, 2021 Admission HPI Per Admitting Provider DATE OF ADMISSION: 01/07/2021. CHIEF COMPLAINT: Nausea, vomiting, elevated blood pressure. HISTORY OF PRESENT ILLNESS: This is a 55-year-old male with past medical history significant for COPD; non-small cell lung cancer, stage III, status post surgery, incomplete chemotherapy secondary to intolerance; history of ulcerative colitis; gastroparesis, status post gastric pacemaker; chronic pain, on narcotics; hypertension; type 1 diabetes; diabetic neuropathy; past tobacco abuse; chronic kidney disease, baseline creatinine around 2; chronic anemia, baseline hemoglobin around 2; history of seizure disorder; history of neurogenic bladder as per records. He was recently in the hospital with IVAN and toxic encephalopathy and acute respiratory failure thought to be from narcotic meds and IVAN. Also had a left ring finger wound ulcer. Cultures are growing MSSA. The patient did fine, discharged . The patient says he is currently back at home, lives alone. His discharge creatinine was 2.4, today his creatinine was 2.6. He says since the last couple of days, he had a lot of nausea, vomiting, some shaking, abdominal painthat is why he came to the hospital . In the ER, his blood pressure was elevated. Even after giving Lopressor and hydralazine, his blood pressure is still high. He was also given Ativan and Zofran and his nausea is better now. Somewhat sleepy, but able to answer all the questions appropriately, alert and oriented. Denies any headache, denies any blurred visions, no earache, no runny nose, no sore throat, no cough. Denies any shortness of breath, chest pain. He is able to swallow, he says he is taking his pills okay at home and there is no dysphagia. He says he has diarrhea. Denies any blood in stools. No hematuria or burning micturition. ALLERGIES: BEE VENOM, PENICILLINS, CAT DANDER. PAST MEDICAL HISTORY: As mentioned above. PAST SURGICAL HISTORY: Colonoscopy, EGDs, EGD with endoscopic ultrasound, placement of pain pump, history of removal of pain pump, robotic thoracoscopy with lymphadenectomy, robotic thoracoscopy with lobectomy. HOME MEDICATIONS: The patient is on albuterol 2 puffs inhalation q. 4 hours p.r.n., amlodipine 5 mg p.o. a.m., Basaglar insulin 7 units subcutaneous at bedtime, cephalexin 500 mg po bid last dose 01/08/2021, clonidine 1 patch transdermal weekly, cyclobenzaprine 5 mg p.o. t.i.d. p.r.n., epinephrine 0.3 mg IM p.r.n.Lexapro 10mg po daily, Wixela inhalation BID , Gabapentin 100 mg p.o. t.i.d., insulin sliding scale, lactobacillus 2 capsules daily, Keppra 750 mg p.o. b.i.d., magnesium oxide 400 mg p.o. b.i.d., MS Contin 30 mg p.o. q. 12 hours, multivitamin one tablet p.o. daily, Zofran 8 mg p.o. q. 8 hours p.r.n., oxycodone 5 mg p.o. q. 4 hours p.r.n., Protonix 40 mg p.o. a.m. FAMILY HISTORY: Significant for aunt has cancer and bilateral lung transplant, father had diabetes, mother had diabetes, sister has renal cell carcinoma, Maternal grandfather has diabetes. SOCIAL HISTORY: . Former smoker, quit in 2000. Smoked half pack a day for 2 years. Alcohol, social drinking, no drug use. REVIEW OF SYSTEMS: As per HPI. Rest of the review of systems is negative. Admission Exam Per Admitting Provider GENERAL: The patient is of moderate build, not in acute distress. VITAL SIGNS: Temperature 36.7, pulse 108, respiratory rate 18, blood pressure 192/121, oxygen 100% on room air. HEENT: Pupils equal, round and reactive to light. Oral mucosa moist. NECK: No JVD, no neck masses. CARDIOVASCULAR: S1 and S2 heard. Tachycardia. No murmurs. RESPIRATORY SYSTEM: Normal AP diameter. No accessory muscle use. No wheezing, no crackles. ABDOMEN: Soft, bowel sounds present. diffuse abdominal discomfort. No distention. CENTRAL NERVOUS SYSTEM: Alert and oriented x3. No facial droop. Speech is clear. Moves extremities, obeys commands. EXTREMITIES: No edema, no erythema seen. Principal Diagnosis Grade C reflux esophagitis Diabetic gastroparesisworsening Discharge Exam GENERAL: Alert and oriented x3. NAD, on RA. HEENT: No pallor, no icterus. Pupils equal, round and reactive to light. Oral mucosa moist. NECK: No JVD, no neck masses. HEART: S1 and S2 heard. Regular rate and rhythm. Systolic murmur over aortic and pulmonic area, no gallop. RESPIRATORY SYSTEM: Normal AP diameter. No accessory muscle use. No wheezing, no crackles. ABDOMEN: Soft, bowel sounds present, diffuse belly pain on deep palpation, healed abdominal scars over left and right abdomen, gastric pacemaker in situ x left side CENTRAL NERVOUS SYSTEM: Alert and oriented x3. No facial droop. Speech is clear. Obeys simple commands. Moves extremities. EXTREMITIES: No edema, no erythema seen. Discharge Data Allergies Allergy/AdvReac Type Severity Reaction Status Date / Time bee venom protein (honey bee) Allergy Mild SWELLING Verified 01/10/21 08:18 AT SITE, SOB Penicillins Allergy Unknown "SINCE Verified 01/10/21 08:18 "-Amoxicillin cat dander Allergy Unknown Verified 01/10/21 08:18 Consultations 01/07/21 03:46 ED Decision to Admit Stat 01/07/21 07:17 Consult General Surgery Routine 01/07/21 07:30 Consult Gastroenterology Routine Procedures Performed Operation Date: 01/10/21 16:00 Actual Procedures p Esophagogastroduodenoscopy - Marli Chaves DO Operation Date: 01/12/21 16:30 Actual Procedures p EGD Biopsy Cytology - Marli Chaves DO Operation Date: 01/13/21 15:30 <No data on this case meets the specified criteria> Ordered Studies 01/07/21 05:06 CT abd pelvis wo con Urgent Hospital Course (1) Lemmon grade C esophagitis: (2) Gastroparesis: (3) Nausea & vomiting: (4) Abnormal finding on CT scan: 55-year-old male with NSCC of lung stage III s/p surgery and incomplete chemo secondary to intolerance, COPD, ulcerative colitis, type I DM with complication [gastroparesis, PDN], chronic pain on narcotics, HTN, past tobacco abuse, CKD [baseline around 2], chronic anemia and seizure disorder came in 01/07 with chief complaint of abdominal pain associated with nausea and vomiting. Is being managed for the following: #. Nausea and vomiting: Secondary to worsening gastroparesis and severe esophagitis complicated by increased pain medication requirement. H/o gastroparesis,and gastric pacemaker. Also on narcotics for chronic pain. Presented with nausea, vomiting and diarrhea Admitting CTAP suggestive of esophagitis and redemonstration of gliotic lesion within left 9th rib suggestive of metastatic disease Surgery was consulted for possible appendicitis, has signed offno evidence of appendicitis 01/10 status post EGDsuggestive of grade C esophagitis, had large amount of food in the stomach and hence no specimen collected 01/12 status post repeat EGD: Grade C esophagitisbiopsy taken. Medium amount of food in the stomach. Normal duodenum. Nausea and vomiting under control, continue with antiemetics as needed. Erythromycin for 10 days followed by metoclopramide for motility issues, follow- up with motility specialist. Patient made aware #. Chronic kidney disease stage III: Possible acute kidney injury component. His baseline creatinine used to be 2, but last admission on discharge it was 2.4 and on current admission 2.6. Creatinine down trended and improving. Expect to improve with normal p.o. intake. Encourage increased fluid intake. #. Hypertensive urgency: Even after hydralazine and Lopressor in the ER, his blood pressure was still running high . Question of withdrawal from his pain medicine. The patient had nausea at home, but he states he was able to take his pills at home. Continue with home medications of clonidine patch, amlodipine. BP now improving Follow-up with PCP for reevaluation and dose adjustment as appropriate. #. History of urine retention: CT reviewed, monitor urine output. Bladder scan as needed. #. History of left ring finger wound: Last admission he received daptomycin and ceftriaxone, completed Keflex on 01/08/21. Seems to be healing well. #. Type 1 diabetes: His recent HbA1c was 7.4%. Continue his long-acting insulin sliding scale. Monitor the blood sugars. #. Non-small cell lung cancer, stage III, status post surgery, incomplete chemotherapy secondary to tolerance. Last admission,lesion noted on left 9th rib. Needs to follow up with PCP and oncologist. Patient aware. #. History of seizure disorder, currently on Keppra 750 b.i.d. If not able to take p.o., then need to change to IV. #. Chronic anemia: Hemoglobin 10.2, seems stable. Will follow the repeat labs. #. History of tobacco abuse. #. Chronic pain: Continue his home pain medications. #. Depression: Continue Lexapro. #. History of chronic obstructive pulmonary disease: Continue home inhalers. DVT prophylaxis: heparin subQ currently held, resume after the scope DISPOSITION: Closely monitor in the eyetok. Social service to help with discharge planning. Code: Full Following instructions were communicated to the patient at the time of discharge. The reason for your pain being esophagitis on the background of worsening diabetic gastroparesis, hence follow following instructions strictly: 1. Protonix daily with new medication added sucralfate 4 times a day. 2. Follow-up with your GI motility doctor for further management of gastroparesis. 3. You will be on erythromycin for 10 days. After you complete erythromycin, start Reglan 10 mg twice a day with lunch and dinner. 4. Follow-up with your primary care doctor within a week time. 5. Follow-up with your GI doctor. 6. During upper GI endoscope, your esophagus is biopsied, follow-up with results with your primary care doctor. 7. Use narcotic pain medication as little as possible as this is also exacerbating your gastroparesis. Avoid any NSAID. Follow-up with your oncology doctor as discussed. Total Time Total Time Spent Total Time Spent (In Minutes): 50 Discharge Plan Discharge Items Patient Disposition: Home - Home Health Services Reason For Visit: NAUSEA Discharge Diagnosis: Grade C reflux esophagitis Diabetic gastroparesisworsening Activity: Resume your previous activity Non-emergency contact: Primary Care Provider Call non-emergency contact if: you have any medication questions, your pain is not controlled, your pain is worsening, your pain is unusual for you and your temperature is above 101 Follow-up/Referrals: Lionel Lutz DO [Primary Care Provider] - (Date & Time 01/19/2021 9:10 AM Provider Juan Davis MD Department [facility] ) Anjali Muniz PA-C [Outside Practitioners] - (Date & Time 01/24/2021 9:40 AM Provider Anjali Muniz PA-C [facility] Diet: Low Fiber, Low Fat and Other - See Diet Comment Diet Comment: Soft diet, small volume at the time Addtl Attending Provider Instructions: The reason for your pain being esophagitis on the background of worsening diabetic gastroparesis, hence follow following instructions strictly: 1. Protonix daily with new medication added sucralfate 4 times a day. 2. Follow-up with your GI motility doctor for further management of gastroparesis. 3. You will be on erythromycin for 10 days. After you complete erythromycin, start Reglan 10 mg twice a day with lunch and dinner. 4. Follow-up with your primary care doctor within a week time. 5. Follow-up with your GI doctor. 6. During upper GI endoscope, your esophagus is biopsied, follow-up with results with your primary care doctor. 7. Use narcotic pain medication as little as possible as this is also exacerbating your gastroparesis. Avoid any NSAID. Pending Studies at Discharge: Yes Studies:: Esophageal biopsy results Stand-Alone Forms: My [employer], Smoking Cessation Medications and DC Order Prescriptions: New polyethylene glycol 3350 [Miralax] 17 gram Powder In Packet 17 g PO DAILY PRN (Reason: constipation) 30 Days Qty: 30 RF: 0 sucralfate 1 gram Tablet 1 g PO QID 30 Days Qty: 120 RF: 0 erythromycin 250 mg Tablet 250 mg PO TID 10 Days Qty: 30 RF: 0 metoclopramide HCl 10 mg tablet 10 mg PO ACHS 20 Days Qty: 40 RF: 0 Continued clonidine 0.2 mg/24 hr patch weekly 1 patch transdermal WK RF: 0 fluticasone propion-salmeterol [Wixela Inhub] 250-50 mcg/dose Blister With Device 1 inh INHALATION BID RF: 0 escitalopram oxalate [Lexapro] 10 mg Tablet 10 mg PO DAILY RF: 0 amlodipine [Norvasc] 5 mg Tablet 5 mg PO QAM Qty: 30 RF: 0 levetiracetam [Keppra] 750 mg tablet 750 mg PO BID 30 Days Qty: 60 RF: 1 multivitamin Tablet 1 tab PO QAM RF: 0 pantoprazole 40 mg tablet,delayed release (DR/EC) 40 mg PO QAM RF: 0 epinephrine [EpiPen] 0.3 mg/0.3 mL Auto-Injector 0.3 mg IM Q3H PRN (Reason: Allergic Reaction) RF: 0 albuterol sulfate 90 mcg/actuation Hfa Aerosol Inhaler 2 puff INHALATION Q4H PRN (Reason: Shortness Of Breath) RF: 0 Humalog U-100 Insulin 100 unit/mL Cartridge 1 sliding scale dose SUBCUT UD RF: 0 Basagljahaira EspinosaikPen U-100 Insulin 100 unit/mL (3 mL) Insulin Pen 7 unit SUBCUT HS RF: 0 ondansetron 8 mg Tablet,Disintegrating 8 mg PO Q8H PRN (Reason: Nausea) RF: 0 cyclobenzaprine 5 mg Tablet 5 mg PO TID PRN (Reason: Muscle Spasm) RF: 0 gabapentin 100 mg Capsule 100 mg PO TID Qty: 30 RF: 0 morphine [MS Contin] 30 mg tablet extended release 30 mg PO Q12H Qty: 10 RF: 0 oxycodone 5 mg Tablet 5 mg PO Q4H PRN (Reason: severe pain) Qty: 10 RF: 0 magnesium oxide 400 mg (241.3 mg magnesium) Tablet 400 mg PO BID Qty: 30 RF: 0 Advanced Probiotic 625 mg (10 billion cell) Capsule 2 cap PO DAILY Qty: 30 RF: 0 Discontinued cephalexin 500 mg capsule 500 mg PO BID 10 Days Qty: 20 RF: 0 Discharge Orders: Discharge Order (Routine); Ordered 01/12/21 Ordered By: Abhishek Meier Admission Data Admit Date/Time: 01/07/21 04:40 Attending Provider: Abhishek Meier Admit Provider: Aguila Saenz Primary Care Provider: Lionel Lutz V. Other Providers: Aguila Saenz ; Hubert Rao ; Jani Daniel ; Saba Nam ; Saleem Mendez ; Nicolle Mccormack ; Alfredito Major ; Marli Chaves ; Mahesh Avila ; Ilir Ballard ; Tiffanie Garcia ; Catalina Demarco ; Peggy Mathews ; Malia James ; Adalberto Varma Other Interventions: Discharge Summary Assessment (RN) Last Done: 01/12/21 14:17
== END 2021-01-12 14:50 | disposition home health service (06) | DRG 74 ==
LOC: ED 23:43 → SUATTDRO 01-07 04:40 → 2N 01-07 04:40

== ENCOUNTER 2021-01-22 17:17 | Inpatient (IN) ==
[2021-01-22 18:06] LABS: Basophils # (auto) 0.01 K/uL (0-0.2); Basophils % (auto) 0.2 %; Eosinophils # (auto) 0.24 K/uL (0-0.5); Hematocrit (blood only) 29.7 % (42-52); Hemoglobin 9.8 g/dL (14.0-18.0); Immature Granulocytes # (auto) 0.01 K/uL (0.00-0.02); Immature Granulocytes % (auto) 0.2 %; Lymphocytes # (auto) 1.19 K/uL (1.2-3.4); Lymphocytes % (auto) 19.8 %; Mean Corpuscular Hemoglobin 28.7 pg (25-34); Mean Corpuscular Volume 87.1 fL (80-100); Mean Platelet Volume 10.1 fL (7.4-10.4); Monocytes # (auto) 0.44 K/uL (0.11-0.59); Monocytes % (auto) 7.3 %; Neutrophils # (auto) 4.11 K/uL (1.4-6.5); Neutrophils % (auto) 68.5 %; Platelet Count 280 K/uL (130-400); RDW Coefficient of Variation 13.9 % (11.5-14.5); RDW Standard Deviation 44.2 fL (36.4-46.3); Red Blood Count 3.41 M/uL (4.7-6.1)
[2021-01-22] MEDS ORDERED: METOCLOPRAMIDE HCL INJ 5 MG/ML 2 ML VIAL IV STA (18:26)
[2021-01-22] MEDS ORDERED: MoRPHine SULFATE 10 MG/ML CARP/VIAL IV STA (18:26)
[2021-01-22] MEDS ORDERED: SODIUM CHLORIDE 0.9% 1000ML 1,000 ML IV ONE (18:26)
[2021-01-22] MEDS ORDERED: LABETALOL HCL IV 5 MG/ML 20ML IV STA ×2 (18:26→19:56)
[2021-01-22 18:49] LABS: Alanine Aminotransferase 70 U/L (12-78); Albumin Globulin Ratio 0.6 (0.9-2); Albumin Level 2.8 gm/dl (3.4-5.0); Alkaline Phosphatase 149 U/L (45-117); Aspartate Aminotransferase 44 U/L (15-37); BUN Creatinine Ratio 10.9 (10-20); Bilirubin,Total 0.2 mg/dl (0.2-1); Blood Urea Nitrogen 33 mg/dl (7-18); Calcium 8.2 mg/dl (8.5-10.1); Carbon Dioxide 25 mmol/L (21-32); Chloride 102 mmol/L (98-107); Est GFR (Non-African American) 22.4 ml/min; Globulin 4.4 gm/dl (2.5-4.0); Glucose 458 mg/dl (70-99); Lipase 46 U/L (73-393); Potassium 4.7 mmol/L (3.5-5.1); Sodium 133 mmol/L (136-145); Total Protein 7.2 gm/dl (6.4-8.2); Troponin I < 0.015 ng/ml (0-0.045)
--- NOTE | 2021-01-22 19:03 | Emergency Department Note ---
Impression & Plan Nausea & vomiting, Seizure disorder, Abdominal pain ED Provider Note Provider: Dajuan Aldana MD DATE OF SERVICE: 01/22/2021 CHIEF COMPLAINT: Abdominal pain, nausea and vomiting HISTORY OF PRESENT ILLNESS: Patient is a 55-year-old gentleman history of fasciitis, gastroparesis, diabetes, seizure disorder, prior cholecystectomy, and recent admission for hypertension as well as esophagitis presenting here today reporting over the past 2 to 3 days has been experiencing worsening episodes of nausea and vomiting. Patient states that is been of acute on his meds today and vomited up his Zofran. Patient states he has diffuse abdominal pain and believes he vomited his pain medication/morphine that he has at home. Patient denies any syncope or falls. Denies significant chest pain reports a little bit of shortness of breath. Diffuse abdominal pain with some sharp pain over his left lower gastric stimulator. States is similar pain what he experienced several weeks ago when he was here. States has not been able to eat or drink much today and feels very thirsty and again quite nauseous. Patient was evidently admitted at the end of December with question of pneumonia. REVIEW OF SYSTEMS: A total of 10 review of systems was obtained and negative except as stated above in the HPI. PAST MEDICAL HISTORY: As noted above MEDICATIONS: Reviewed home medications states he is current the not taking any of erythromycin and has Zofran at home that he is been able to keep down. SOCIAL HISTORY: Normally lives at home by himself, denies alcohol use PHYSICAL EXAM: GENERAL: alert and oriented leg on the stretcher appears somewhat uncomfortable Head: normocephalic and atraumatic EYES: No injection, discharge or icterus. NECK: Trachea midline. Supple. ENT: Mucous membranes pink and moist. LUNGS: Airway patent. No retractions. Breath sounds clear with good air entry bilaterally. HEART: Regular rate and rhythm. No chest wall tenderness ABDOMEN: Soft with mild diffuse tenderness without guarding or rebound. Left lower quadrant subcutaneous stimulator appreciated with some mild tenderness SKIN: Acyanotic, warm, dry, without rashes EXTREMITIES: Without swelling, tenderness or deformity NEUROLOGICAL: No focal deficits. No aphasia. No facial droop or slurred speech. EK bpm normal sinus rhythm. No PVC or PAC. No acute ST segment elevation or depression with some nonspecific lead III T wave changes as well as a few spikes from gastric stimulator noted. QTc 463. CONTINUOUS CARDIAC MONITORING: was ordered and showed a heart rate of 70s to 90s bpm in normal sinus rhythm Patient's laboratory studies and imaging reviewed. Differential includes Appendicitis, testicular torsion, infections, diverticulitis, UTI, obstruction, mesenteric ischemia, aortic pathology, inflammatory bowel disease, renal colic, PUD, pancreatitis, biliary pathology, hernia, volvulus, constipation, as well as other pathologies. IMPRESSION/MEDICAL DECISION MAKING: Patient with unfortunate history of poorly controlled diabetes and stigmata from this such as diabetic neuropathy and gastric motility issues. Has a gastric stimulator in place with some slight sharp tenderness here; reports this is somewhat chronic and similar to prior presentations. Patient significantly hypertensive upon arrival given several doses of labetalol here in addition some IV fluid, Reglan, and morphine. Is unable to keep down his home medications likely contributing. Renal function appears stable with a creatinine around 3. Blood glucose significantly at 458. No anion gap. Given some IV insulin given his significant hyperglycemia. Troponin is undetectable and lipase is not elevated. Doubt this represents acute hepatitis or pancreatitis. Doubt acute ACS. No significant leukocytosis. Chest x-ray and CT and pelvis without contrast were completed given his complaints to evaluate for occult pathology here. Reviewed recent records from his recent admission and had esophagitis at that time and was scoped by GI. Anemia slightly improved today. Doubt this represents acute GI bleed. Chest x-ray per radiology shows near resolution of previous pneumonia and I doubt he has acute pneumonia today. Patient blood pressure improved here with medication. Patient's nausea and abdominal pain did not significantly improved after initial treatment. Given additional morphine and Zofran. CT per radiology questions possible developing SBO versus ileus. Had a bowel movement this morning and lower suspicion at this time for SBO and question if this is more of a continued issue with his ongoing motility issues. In any event he is not tolerating oral intake at this time and cannot go home. Discussed with the patient and if continued intractable nausea or vomiting may consider an NG tube but will defer at this time as again I feel is less likely to be an SBO. Given IV dose of his seizure medicine. Discussed with the hospitalist for continued evaluation and treatment here at the hospital. DIAGNOSIS: Nausea and vomiting, abdominal pain, seizure disorder DISPOSITION: Hospitalist will evaluate Patient was agreeable with this plan. 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 One 1 mm polyp in the ascending colon resected. One benign appearing 1 mm polyp in the rectum resected. Internal hemorrhoids; Dr. Demarco" H/O esophagogastroduodenoscopy "01/26/2015- LA Grade B reflux esophagitis, gastritis; Dr. Major" History of cholecystectomy History of tonsillectomy and adenoidectomy Hx of total knee arthroplasty S/P lobectomy of lung "left upper lobectomy for adenoCa" On 08/05/16 16:30 Edie Mcfarland wrote "L side @ [facility] 05/25/16" Status post insertion of intrathecal pump explanted Family History Other Family history non-contributory Social History Smoking Status: Never smoker Tobacco Type: Cigarettes Second Hand Exposure: No; Hx Alcohol Use: No Hx Substance Use: Yes Last Used Substance: Just Prior to Arrival Last Used Substance Other:: Four hours ago Substance Use Type Other:: fentanyl patch 24hrs a day-refused removal of 2 patches Preferred Language: [place] Communication Ability: Effective Crew Manager Required: No Beliefs That Will Affect Care: Presybeterian Presybeterian Beliefs: Alevism marital status: Single Current Living Situation: Alone Feels Safe at Home: Yes Assistive Devices: Walker Allergies Allergies Allergy/AdvReac Type Severity Reaction Status Date / Time bee venom protein (honey bee) Allergy Mild SWELLING Verified 01/22/21 18:57 AT SITE, SOB Penicillins Allergy Unknown "SINCE Verified 01/22/21 18:57 "-Amoxicillin cat dander Allergy Unknown Verified 01/22/21 18:57 Home Meds Home Medications Medication Instructions Recorded Confirmed albuterol sulfate 90 mcg/actuation 2 puff INHALATION Q4H PRN 05/05/18 01/22/21 aerosol inhaler (Ventolin HFA) epinephrine 0.3 mg/0.3 mL 0.3 mg IM Q3H PRN 05/05/18 01/22/21 injection, auto-injector (EpiPen) insulin glargine 100 unit/mL (3 7 unit SUBCUT HS 05/05/18 01/22/21 mL) subcutaneous pen (Basaglar KwikPen U-100 Insulin) insulin lispro 100 unit/mL 1 sliding scale dose SUBCUT UD 05/05/18 01/22/21 subcutaneous cartridge (Humalog U-100 Insulin) multivitamin 1 tab PO QAM 05/05/18 01/22/21 pantoprazole 40 mg tablet,delayed 40 mg PO QAM 05/05/18 01/22/21 release (Protonix) clonidine 0.2 mg/24 hr weekly 1 patch TRANSDERMAL WK 01/23/20 01/22/21 transdermal patch (Unsspblg-ZNO-2) escitalopram oxalate 10 mg tablet 10 mg PO QAM 01/24/20 01/22/21 (Lexapro) fluticasone 250 mcg-salmeterol 50 1 inh INHALATION BID 01/24/20 01/22/21 mcg/dose blistr powdr for inhalation (Wixela Inhub) cyclobenzaprine 5 mg tablet 5 mg PO TID PRN 12/20/20 01/22/21 ondansetron 8 mg disintegrating 8 mg PO Q8H PRN 12/20/20 01/22/21 tablet L.acidop,casei,lactis,rham-B.lact,jose 1 cap PO BID 01/22/21 01/22/21 625 mg (10 billion cell) capsule (Advanced Probiotic) gabapentin 100 mg capsule 100 mg PO TID 01/22/21 01/22/21 (Neurontin) magnesium oxide 400 mg (241.3 mg 400 mg PO BID 01/22/21 01/22/21 magnesium) tablet (MagOx) metoclopramide HCl 10 mg tablet 10 mg PO ACHS 01/22/21 01/22/21 (Reglan) oxycodone 5 mg tablet (Roxicodone) 5 mg PO Q4H PRN 01/22/21 01/22/21 sucralfate 1 gram tablet (Carafate) 1 g PO QID 01/22/21 01/22/21 Previous Rx's Medication Instructions Recorded amlodipine 5 mg tablet (Norvasc) 5 mg PO QAM #30 tab 01/29/20 levetiracetam 750 mg tablet 750 mg PO BID 30 Days #60 tab 01/29/20 (Keppra) morphine 30 mg tablet,extended 30 mg PO Q12H #10 tab 12/29/20 release (MS Contin) Results & Data (ED) Vital Signs Vital Signs - 24 hr 01/22/21 17:18 01/22/21 18:00 01/22/21 18:23 Temperature 36.3 C L Temperature Source Temporal Artery Scan Pulse Rate 96 H 82 87 Pulse Rate [Bilateral Apical] Pulse Rate from SpO2 Sensor 82 88 Pulse Rhythm Regular Pulse Strength Normal Respiratory Rate 20 12 17 Respiratory Effort / Characteristics Non-Labored Spontaneous Respiratory Depth Normal Respiratory Pattern Regular Blood Pressure 140/99 216/122 H 196/119 H Blood Pressure [Right Arm] Blood Pressure Mean 112 153 144 Blood Pressure Mean [Right Arm] Blood Pressure Position Sitting Pulse Oximetry 100 99 99 Oxygen Delivery Method Room Air Sepsis Recent Fever Within 48 Hours No Sepsis New/Unexplained Change in Mental Status N/A Sepsis Action Taken by Nursing No Action Required 01/22/21 18:30 01/22/21 18:54 01/22/21 19:12 Temperature Temperature Source Pulse Rate 84 80 Pulse Rate [Bilateral Apical] 80 Pulse Rate from SpO2 Sensor 83 80 Pulse Rhythm Pulse Strength Respiratory Rate 18 20 20 Respiratory Effort / Characteristics Respiratory Depth Respiratory Pattern Blood Pressure 215/126 H 155/87 H Blood Pressure [Right Arm] 180/94 H Blood Pressure Mean 155 109 Blood Pressure Mean [Right Arm] 122 Blood Pressure Position Pulse Oximetry 99 98 96 Oxygen Delivery Method Room Air Sepsis Recent Fever Within 48 Hours Sepsis New/Unexplained Change in Mental Status Sepsis Action Taken by Nursing 01/22/21 20:00 01/22/21 20:28 01/22/21 21:21 Temperature Temperature Source Pulse Rate Pulse Rate [Bilateral Apical] 82 76 78 Pulse Rate from SpO2 Sensor Pulse Rhythm Pulse Strength Respiratory Rate 20 20 20 Respiratory Effort / Characteristics Respiratory Depth Respiratory Pattern Blood Pressure Blood Pressure [Right Arm] 147/96 H 133/78 153/89 H Blood Pressure Mean Blood Pressure Mean [Right Arm] 113 96 110 Blood Pressure Position Pulse Oximetry 99 100 94 Oxygen Delivery Method Sepsis Recent Fever Within 48 Hours Sepsis New/Unexplained Change in Mental Status Sepsis Action Taken by Nursing 01/22/21 22:11 Temperature Temperature Source Pulse Rate Pulse Rate [Bilateral Apical] 75 Pulse Rate from SpO2 Sensor Pulse Rhythm Pulse Strength Respiratory Rate 20 Respiratory Effort / Characteristics Respiratory Depth Respiratory Pattern Blood Pressure Blood Pressure [Right Arm] 140/83 Blood Pressure Mean Blood Pressure Mean [Right Arm] 102 Blood Pressure Position Pulse Oximetry 100 Oxygen Delivery Method Room Air Sepsis Recent Fever Within 48 Hours Sepsis New/Unexplained Change in Mental Status Sepsis Action Taken by Nursing Laboratory Data Result diagrams: 01/22/21 17:55 01/22/21 17:55 Lab Results 01/22/21 01/22/21 01/22/21 Range/Units 17:55 17:55 18:30 WBC 6.00 (4.8-10.8) K/uL RBC 3.41 L (4.7-6.1) M/uL Hgb 9.8 L (14.0-18.0) g/dL Hct 29.7 L (42-52) % MCV 87.1 (80-100) fL MCH 28.7 (25-34) pg MCHC 33.0 (32-36) g/dL RDW Std Deviation 44.2 (36.4-46.3) fL RDW Coeff of Rik 13.9 (11.5-14.5) % Plt Count 280 (130-400) K/uL MPV 10.1 (7.4-10.4) fL Immature Gran % (Auto) 0.2 % Neut % (Auto) 68.5 % Lymph % (Auto) 19.8 % Lawrence % (Auto) 7.3 % Eos % (Auto) 4.0 % Baso % (Auto) 0.2 % Neut # (Auto) 4.11 (1.4-6.5) K/uL Lymph # (Auto) 1.19 L (1.2-3.4) K/uL Lawrence # (Auto) 0.44 (0.11-0.59) K/uL Eos # (Auto) 0.24 (0-0.5) K/uL Baso # (Auto) 0.01 (0-0.2) K/uL Immature Gran # (Auto) 0.01 (0.00-0.02) K/uL Sodium 133 L (136-145) mmol/L Potassium 4.7 (3.5-5.1) mmol/L Chloride 102 (98-107) mmol/L Carbon Dioxide 25 (21-32) mmol/L Anion Gap 6.0 (3-11) BUN 33 H (7-18) mg/dl Creatinine 2.99 H (0.6-1.4) mg/dl Est Cr Clr Drug Dosing 27.0 ml/min Est GFR ( Amer) 26.0 ml/min Est GFR (Non-Af Amer) 22.4 ml/min BUN/Creatinine Ratio 10.9 (10-20) Glucose 458 H* (70-99) mg/dl POC Glucose (70-99) mg/dl Calcium 8.2 L (8.5-10.1) mg/dl Total Bilirubin 0.2 (0.2-1) mg/dl AST 44 H (15-37) U/L ALT 70 (12-78) U/L Alkaline Phosphatase 149 H (45-117) U/L Troponin I < 0.015 (0-0.045) ng/ml Total Protein 7.2 (6.4-8.2) gm/dl Albumin 2.8 L (3.4-5.0) gm/dl Globulin 4.4 H (2.5-4.0) gm/dl Albumin/Globulin Ratio 0.6 L (0.9-2) Lipase 46 L (73-393) U/L Beta-Hydroxybutyric Acd 0.69 (0.2-2.81) mg/dl COVID-19 Eval Order Covid19 at [facility] SARS-CoV-2 (PCR) (Negative) 01/22/21 01/22/21 Range/Units 18:30 19:57 WBC (4.8-10.8) K/uL RBC (4.7-6.1) M/uL Hgb (14.0-18.0) g/dL Hct (42-52) % MCV (80-100) fL MCH (25-34) pg MCHC (32-36) g/dL RDW Std Deviation (36.4-46.3) fL RDW Coeff of Rik (11.5-14.5) % Plt Count (130-400) K/uL MPV (7.4-10.4) fL Immature Gran % (Auto) % Neut % (Auto) % Lymph % (Auto) % Lawrence % (Auto) % Eos % (Auto) % Baso % (Auto) % Neut # (Auto) (1.4-6.5) K/uL Lymph # (Auto) (1.2-3.4) K/uL Lawrence # (Auto) (0.11-0.59) K/uL Eos # (Auto) (0-0.5) K/uL Baso # (Auto) (0-0.2) K/uL Immature Gran # (Auto) (0.00-0.02) K/uL Sodium (136-145) mmol/L Potassium (3.5-5.1) mmol/L Chloride (98-107) mmol/L Carbon Dioxide (21-32) mmol/L Anion Gap (3-11) BUN (7-18) mg/dl Creatinine (0.6-1.4) mg/dl Est Cr Clr Drug Dosing ml/min Est GFR ( Amer) ml/min Est GFR (Non-Af Amer) ml/min BUN/Creatinine Ratio (10-20) Glucose (70-99) mg/dl POC Glucose 317 H* (70-99) mg/dl Calcium (8.5-10.1) mg/dl Total Bilirubin (0.2-1) mg/dl AST (15-37) U/L ALT (12-78) U/L Alkaline Phosphatase (45-117) U/L Troponin I (0-0.045) ng/ml Total Protein (6.4-8.2) gm/dl Albumin (3.4-5.0) gm/dl Globulin (2.5-4.0) gm/dl Albumin/Globulin Ratio (0.9-2) Lipase (73-393) U/L Beta-Hydroxybutyric Acd (0.2-2.81) mg/dl COVID-19 Eval Order SARS-CoV-2 (PCR) NEGATIVE (Negative) Administered Medications Discontinued Medications Sodium Chloride (Nss 1000ml) 1,000 mls @ 999 mls/hr IV .Q1H1M ONE Stop: 01/22/21 19:26 Last Infusion: 01/22/21 19:41 Dose: 0 mls/hr Documented by: [id number] Admin: 01/22/21 18:36 Dose: 999 mls/hr Documented by: [id number] Levetiracetam 1,000 mg/ Sodium (Chloride) 110 mls @ 440 mls/hr IV NOW STA Stop: 01/22/21 21:20 Last Infusion: 01/22/21 22:12 Dose: 0 mls/hr Documented by: [id number] Admin: 01/22/21 21:33 Dose: 440 mls/hr Documented by: [id number] Insulin Human Regular (Novolin-R Insulin Per Unit Charge) 7 units IV NOW STA Stop: 01/22/21 19:05 Last Admin: 01/22/21 19:11 Dose: 7 units Documented by: [id number] Cosigned by: [id number] Labetalol HCl (Labetalol Hcl Iv 5 Mg/Ml 20ml) 10 mg IV NOW STA Stop: 01/22/21 18:27 Last Admin: 01/22/21 18:38 Dose: 10 mg Documented by: [id number] Cosigned by: [id number] Labetalol HCl (Labetalol Hcl Iv 5 Mg/Ml 20ml) 10 mg IV NOW STA Stop: 01/22/21 19:57 Last Admin: 01/22/21 20:04 Dose: 10 mg Documented by: [id number] Cosigned by: [id number] Metoclopramide HCl (Metoclopramide Hcl Inj 5 Mg/Ml 2 Ml Vial) 10 mg IV NOW STA Stop: 01/22/21 18:27 Last Admin: 01/22/21 18:38 Dose: 10 mg Documented by: [id number] Morphine Sulfate (Morphine Sulfate 10 Mg/Ml Carp/Vial) 6 mg IV NOW STA Stop: 01/22/21 18:27 Last Admin: 01/22/21 18:37 Dose: 6 mg Documented by: [id number] Morphine Sulfate (Morphine Sulfate 4 Mg/Ml 1 Ml Carp\\Vial) 4 mg IV NOW STA Stop: 01/22/21 21:07 Last Admin: 01/22/21 21:27 Dose: 4 mg Documented by: [id number] Ondansetron HCl (Ondansetron Inj 2 Mg/Ml 2 Ml Vial) 4 mg IV NOW STA Stop: 01/22/21 21:07 Last Admin: 01/22/21 21:27 Dose: 4 mg Documented by: [id number] Imaging Data Radiologist's Impression: Chest X-Ray 01/22/21 18:20 XR chest 1V portable CLINICAL HISTORY: nausea, sob COMPARISON STUDY: December 23, 2020 FINDINGS: No pneumothorax. No pleural effusion. Chronic pleural thickening is seen at the left costophrenic angle, unchanged since November 2018 chest radiograph. Interval near resolution of previously seen mixed reticular and airspace opacities throughout bilateral lungs. Cardiomediastinal silhouette is within normal limits in size. No significant pulmonary vascular congestion.. Osseous structures: Mild degenerative changes of the spine IMPRESSION: 1. Interval near resolution of previously seen multifocal pneumonia. ACT 112: Negative or not required by law. The above report was generated using voice recognition software. It may contain grammatical, syntax or spelling errors. Electronically signed by: Christine Ruiz DO 01/22/2021 7:20 PM Abdomen/Pelvis CT 01/22/21 18:26 CT SCAN OF THE ABDOMEN AND PELVIS WITHOUT CONTRAST CLINICAL HISTORY: abd pain, nausea/vomiting COMPARISON STUDY: January 07, 2021 TECHNIQUE: CT scan of the abdomen and pelvis was performed from the lung bases to the proximal femurs. Images are reviewed in the axial, sagittal, and coronal planes. IV contrast was not administered for this examination. A dose lowering technique was utilized adhering to the principles of ALARA. CT DOSE: 405.41 mGy.cm FINDINGS: Lower chest: No infiltrates or consolidative lesions are seen. Liver: The unenhanced liver is normal in size, contour, and attenuation. There is no intrahepatic biliary ductal dilatation. Questionable surgical adrienne are seen at the left border of the liver. Gallbladder: Is surgically absent. Spleen: Normal in size and attenuation. Pancreas: Is atrophic. Adrenal glands: Unremarkable. Kidneys: The unenhanced kidneys are normal in size without hydronephrosis. There is no contour deforming renal mass lesion. No renal calculi are identified. Bowel: Redemonstration of the mild diffuse thickening of the lower esophageal wall. Loops of small bowel are fluid-filled and mildly dilated measuring up to 3.3 cm in diameter (2/21). Possible narrowing at the terminal ileum (3/247) might represent at least partial small bowel obstruction. Also there are few other collapse areas of small bowel are seen throughout the abdomen. Limited evaluation due to lack of IV and oral contrast as well as beam hardening artifact from gastric stimulator within left anterior abdominal wall. Appendix is not well seen. Moderate stool burden is seen within loops of large bowel. Peritoneum: There is no intraperitoneal free air or abdominal ascites. Vasculature: The abdominal aorta is normal in course and caliber. Adenopathy: Possible mesenteric lymphadenopathy however evaluation is limited due to motion artifact and very little amount of intra-abdominal fat. Pelvic viscera: Urinary bladder is adequately filled with urine. Mild thickening of urinary bladder wall is again seen. Prostate gland is mildly enlarged. Skeletal structures: Redemonstration of the lytic lesion within left ninth rib. Osseous structures are diffusely demineralized. Multilevel degenerative changes of the spine are seen. IMPRESSION: 1. Possible developing small bowel obstruction versus ileus. Few fluid filled slightly dilated loops of small bowel are intermixed with normal caliber and collapsed loops of small bowel. Evaluation is limited due to lack of IV and oral contrast as well as very little amount of intra-abdominal fat. Report will be sent to emergency Department. 2. Mild diffuse thickening of the esophageal wall which was also seen on prior study, could represent esophagitis which was also seen during recent prior study. 3. Redemonstration of the lytic lesion within left ninth rib suggestive of metastatic disease. 4. Appendix is not well seen. 5. The rest of findings as above. ACT 112: Negative or not required by law. The above report was generated using voice recognition software. It may contain grammatical, syntax or spelling errors. Electronically signed by: Christine Ruiz DO 01/22/2021 8:54 PM Discharge Plan Visit Data Chief Complaint: Vomiting Stated Complaint: NAUSEA/VOMITING ED Provider: Dajuan Aldana Discharge Problem: Nausea & vomiting, Seizure disorder, Abdominal pain Patient Disposition: Being Evaluated by Hospitalist Forms Stand Alone Forms: [employer] Prescriptions Prescriptions: No Action clonidine [[id number]] 0.2 mg/24 hr patch weekly 1 patch transdermal WK RF: 0 fluticasone propion-salmeterol [Wixela Inhub] 250-50 mcg/dose Blister With Device 1 inh INHALATION BID RF: 0 escitalopram oxalate [Lexapro] 10 mg Tablet 10 mg PO QAM RF: 0 amlodipine [Norvasc] 5 mg Tablet 5 mg PO QAM Qty: 30 RF: 0 levetiracetam [Keppra] 750 mg tablet 750 mg PO BID 30 Days Qty: 60 RF: 1 multivitamin Tablet 1 tab PO QAM RF: 0 pantoprazole [Protonix] 40 mg tablet,delayed release (DR/EC) 40 mg PO QAM RF: 0 epinephrine [EpiPen] 0.3 mg/0.3 mL Auto-Injector 0.3 mg IM Q3H PRN (Reason: Allergic Reaction) RF: 0 albuterol sulfate [Ventolin HFA] 90 mcg/actuation Hfa Aerosol Inhaler 2 puff INHALATION Q4H PRN (Reason: Shortness Of Breath) RF: 0 Humalog U-100 Insulin 100 unit/mL Cartridge 1 sliding scale dose SUBCUT UD RF: 0 Basaglar KwikPen U-100 Insulin 100 unit/mL (3 mL) Insulin Pen 7 unit SUBCUT HS RF: 0 ondansetron 8 mg Tablet,Disintegrating 8 mg PO Q8H PRN (Reason: Nausea) RF: 0 cyclobenzaprine 5 mg Tablet 5 mg PO TID PRN (Reason: Muscle Spasm) RF: 0 morphine [MS Contin] 30 mg tablet extended release 30 mg PO Q12H Qty: 10 RF: 0 sucralfate [Carafate] 1 gram tablet 1 g PO QID RF: 0 magnesium oxide [MagOx] 400 mg (241.3 mg magnesium) tablet 400 mg PO BID RF: 0 gabapentin [Neurontin] 100 mg capsule 100 mg PO TID RF: 0 metoclopramide HCl [Reglan] 10 mg tablet 10 mg PO ACHS RF: 0 oxycodone [Roxicodone] 5 mg tablet 5 mg PO Q4H PRN (Reason: severe pain) RF: 0 Advanced Probiotic 625 mg (10 billion cell) capsule 1 cap PO BID RF: 0 Referrals Referrals: Lionel Lutz V., [Outside Practitioners] - Discharge Problem: Nausea & vomiting Qualifiers: Vomiting type: unspecified Vomiting Intractability: intractable Qualified Code(s): R11.2 - Nausea with vomiting, unspecified Abdominal pain Qualifiers: Abdominal location: generalized Qualified Code(s): R10.84 - Generalized abdominal pain
[2021-01-22] MEDS ORDERED: NovoLIN-R INSULIN PER UNIT CHARGE IV STA (19:04)
[2021-01-22 19:09] LABS: Beta-Hydroxybutyrate 0.69 mg/dl (0.2-2.81)
--- NOTE | 2021-01-22 19:22 | XRay Report ---
XR chest 1V portable CLINICAL HISTORY: nausea, sob COMPARISON STUDY: December 23, 2020 FINDINGS: No pneumothorax. No pleural effusion. Chronic pleural thickening is seen at the left costophrenic angle, unchanged sin ce November 2018 chest radiograph. Interval near resolution of previously seen mixed reticular and airspace opacities throughout bilater al lungs. Cardiomediastinal silhouette is within normal limits in size. No significant pulmonary vascular congestion.. Osseous structures: Mild degenerative changes of the spine IMPRESSION: 1. Interval near resolution of previously seen multifocal pneumonia. ACT 112: Negative or not required by law. The above report was generated using voice recognition software. It may contain grammatical, syntax o r spelling errors. Electronically signed by: Christine Ruiz DO 01/22/2021 7:20 PM
--- NOTE | 2021-01-22 20:56 | CT Scan Report ---
CT SCAN OF THE ABDOMEN AND PELVIS WITHOUT CONTRAST CLINICAL HISTORY: abd pain, nausea/vomiting COMPARISON STUDY: January 07, 2021 TECHNIQUE: CT scan of the abdomen and pelvis was performed from the lung bases to the proximal femurs . Images are reviewed in the axial, sagittal, and coronal planes. IV contrast was not administered fo r this examination. A dose lowering technique was utilized adhering to the principles of ALARA. CT DOSE: 405.41 mGy.cm FINDINGS: Lower chest: No infiltrates or consolidative lesions are seen. Liver: The unenhanced liver is normal in size, contour, and attenuation. There is no intrahepatic el iary ductal dilatation. Questionable surgical adrienne are seen at the left border of the liver. Gallbladder: Is surgically absent. Spleen: Normal in size and attenuation. Pancreas: Is atrophic. Adrenal glands: Unremarkable. Kidneys: The unenhanced kidneys are normal in size without hydronephrosis. There is no contour deform ing renal mass lesion. No renal calculi are identified. Bowel: Redemonstration of the mild diffuse thickening of the lower esophageal wall. Loops of small bowel are fluid-filled and mildly dilated measuring up to 3.3 cm in diameter (2/21). Possible narrowing at the terminal ileum (3/247) might represent at least partial small bowel obstruc tion. Also there are few other collapse areas of small bowel are seen throughout the abdomen. Limited evaluation due to lack of IV and oral contrast as well as beam hardening artifact from gastric stimu lator within left anterior abdominal wall. Appendix is not well seen. Moderate stool burden is seen within loops of large bowel. Peritoneum: There is no intraperitoneal free air or abdominal ascites. Vasculature: The abdominal aorta is normal in course and caliber. Adenopathy: Possible mesenteric lymphadenopathy however evaluation is limited due to motion artifact and very little amount of intra-abdominal fat. Pelvic viscera: Urinary bladder is adequately filled with urine. Mild thickening of urinary bladder wall is again seen. Prostate gland is mildly enlarged. Skeletal structures: Redemonstration of the lytic lesion within left ninth rib. Osseous structures ar e diffusely demineralized. Multilevel degenerative changes of the spine are seen. IMPRESSION: 1. Possible developing small bowel obstruction versus ileus. Few fluid filled slightly dilated loops of small bowel are intermixed with normal caliber and collapsed loops of small bowel. Evaluation is limited due to lack of IV and oral contrast as well as very little amount of intra-abdominal fat. Rep ort will be sent to emergency Department. 2. Mild diffuse thickening of the esophageal wall which was also seen on prior study, could represen t esophagitis which was also seen during recent prior study. 3. Redemonstration of the lytic lesion within left ninth rib suggestive of metastatic disease. 4. Appendix is not well seen. 5. The rest of findings as above. ACT 112: Negative or not required by law. The above report was generated using voice recognition software. It may contain grammatical, syntax o r spelling errors. Electronically signed by: Christine Ruiz DO 01/22/2021 8:54 PM
[2021-01-22] MEDS ORDERED: levETIRAcetam 1,000 MG in 0.9 % SODIUM CHLORIDE 100 ML IV STA (21:06)
[2021-01-22] MEDS ORDERED: ONDANSETRON INJ 2 MG/ML 2 ML VIAL IV STA (21:06)
[2021-01-22] MEDS ORDERED: MoRPHine SULFATE 4 MG/ML 1 ML CARP\\VIAL IV STA (21:06)
[2021-01-23] MEDS ORDERED: ACETAMINOPHEN 325 MG TAB PO PRN (01:05)
[2021-01-23] MEDS ORDERED: NITROGLYCERIN SL 0.4 MG/TAB TAB SL PRN (01:05)
[2021-01-23] MEDS ORDERED: ONDANSETRON 8MG OD TAB PO PRN (01:05)
[2021-01-23] MEDS ORDERED: CYCLOBENZAPRINE HCL 5 MG TAB PO PRN (01:05)
[2021-01-23] MEDS ORDERED: ALBUTEROL HFA 8 GM INHALER INH PRN (01:05)
[2021-01-23] MEDS ORDERED: EPINEPHrine INJ 1 MG/ML AMP IM PRN (01:34)
[2021-01-23] MEDS: SODIUM CHLORIDE 0.9% 1000ML 1,000 ML IV SCH ×3 (01:48→17:41)
[2021-01-23] MEDS: MoRPHine SULFATE CR 15 MG TABCR PO SCH ×3 (01:48→21:09)
[2021-01-23] MEDS ORDERED: GLUCAGON FOR INJ 1 MG VIAL IM PRN (02:00)
[2021-01-23] MEDS ORDERED: GLUCOSE 10 TABS/TUBE PO PRN (02:00)
[2021-01-23] MEDS ORDERED: GLUCOSE 40% GEL 15 GM TUBE PO PRN (02:00)
--- NOTE | 2021-01-23 02:03 | History and Physical Report ---
DATE OF ADMISSION: 01/22/2021. CHIEF COMPLAINT: Nausea, vomiting, abdominal pain and shortness of breath. HISTORY OF PRESENT ILLNESS: This 55-year-old male with past medical history significant for COPD, non-small cell lung cancer, stage III, status post surgery, incomplete chemotherapy secondary to intolerance, history of ulcerative colitis, gastroparesis, status post gastric pacemaker, chronic pain, on narcotics, hypertension, type 1 diabetes, diabetic neuropathy, history of past tobacco abuse, chronic kidney disease, baseline creatinine of 2, chronic anemia, baseline hemoglobin around 9, history of seizure disorder, history of neurogenic bladder as per records, recent admissions initially with toxic encephalopathy and respiratory failure, thought to be from narcotic meds and IVAN, also left ring finger wound growing MSSA, status post treatment, got discharged, again came back with nausea, vomiting and elevated blood pressure, and status post EGD showing grade C esophagitis. Hypertensive urgency, improved and also noted to have lesion in the left 9th rib, supposed to follow up with oncologist. He was discharged home on 01/12/2021. Lives at home alone, ambulates with a walker, sometimes cane, comes back again with persistent nausea, vomiting, abdominal pain, pain more in the left 9th rib region and states pain all over his body, not feeling well and came to the hospital. In the ER at this time, his hemodynamics are okay. Initially, his blood pressure was elevated, but it is improved and his imaging studies, CT of abdomen and pelvis was done, which was showing possible small-bowel obstruction versus ileus. Currently, the patient is resting comfortably, but complains of pain all over his body and has pain in the left 9th rib region and abdominal discomfort. States he is able to swallow his pills at home okay, and the last couple of days he is not eating much because of nausea, vomiting. Denies any blood in stools or black stools. Normal bladder movements. Denies any fevers. Has some cough. He also complains of shortness of breath, but he is saturating okay in the ER. Denies any headache. No blurred visions, no runny nose, no sore throat. ALLERGIES: BEE VENOM, PENICILLIN, CAT DANDER. PAST MEDICAL HISTORY: As mentioned above. PAST SURGICAL HISTORY: Colonoscopy, EGD, EGD with endoscopic ultrasound and placement of pain pump, history of removal of pain pump, robotic thoracoscopy with lymphadenectomy, robotic thoracoscopy with lobectomy. MEDICATIONS: The patient is on probiotic 1 capsule p.o. b.i.d., albuterol 2 puffs inhalation q. 4 hours p.r.n., amlodipine 5 mg p.o. a.m., Basaglar insulin 70 units subcutaneous at bedtime, clonidine patch 0.2 mg weekly, cyclobenzaprine 5 mg p.o. t.i.d. p.r.n., EpiPen 0.3 mg IM p.r.n., Lexapro 10 mg p.o. q.a.m., fluticasone propionate and salmeterol 1 inhalation b.i.d., gabapentin 100 mg p.o. t.i.d., Humalog sliding scale, Keppra 750 mg p.o. b.i.d., magnesium oxide 400 mg p.o. b.i.d., Reglan 10 mg p.o. a.c. and bedtime. MS Contin 30 mg p.o. b.i.d., multivitamins 1 tablet p.o. a.m., Zofran 8 mg p.o. q. 8 hours p.r.n., oxycodone 5 mg p.o. q. 4 hours p.r.n., Protonix 40 mg p.o. a.m., Carafate 1 gram p.o. q.i.d. FAMILY HISTORY: Significant for father and mother has diabetes. Aunt has cancer. SOCIAL HISTORY: . Former smoker, quit in 2000. Smoked a pack a day for 2 years. Alcohol, social. No drug use. REVIEW OF SYSTEMS: As per HPI. Rest of the review of systems is negative. PHYSICAL EXAMINATION: GENERAL: The patient is of moderate build, not in acute distress. VITAL SIGNS: Temperature 36.3, pulse 75, respiratory rate 20, blood pressure when he came in was in 216/122, currently 140/83, oxygen 100% on room air. HEENT: Pupils equal, round and reactive to light. Oral mucosa moist. NECK: No JVD, no neck masses. CARDIOVASCULAR: S1 and S2 heard, regular rate and rhythm, no murmur, no gallop. RESPIRATORY: Normal AP diameter. No accessory muscle use. No wheezing, no crackles. ABDOMEN: Soft, bowel sounds present. Mild abdominal discomfort. No guarding, no rigidity, no distention. CENTRAL NERVOUS SYSTEM: Cranial nerves II-XII grossly intact, nonfocal. EXTREMITIES: No edema, no erythema. LABORATORY DATA: WBC 6, hemoglobin 9.8, hematocrit 29.7, platelets 280. Sodium 133, potassium 4.7, chloride 102, bicarbonate 25, BUN 33, creatinine 2.99, serum glucose 458, calcium 8.2, total bilirubin 0.2, AST 44, ALT 70, alkaline phosphatase 149. Troponin I less than 0.015. Lipase 46. Beta hydroxybutyric acid 0.69. SARS-CoV-2 PCR negative. IMAGING DATA: CT of abdomen and pelvis is showing possible developing small- bowel obstruction versus ileus, mild diffuse thickening of the cecal wall, which was seen on prior study. Redemonstration of lytic lesion of left ninth rib/metastatic disease. Chest x-ray: Interval near resolution of previously seen multifocal pneumonia. EKG: Normal sinus rhythm, rate of 84, no acute ST changes seen. ASSESSMENT AND PLAN: This is a 54-year-old male who presents with nausea, vomiting, abdominal pain. 1. Nausea, vomiting, abdominal pain, history of gastroparesis, multiple admissions, status post gastric pacemaker. Also, CAT scan showing possible developing small-bowel obstruction versus ileus. We will keep him n.p.o. except medications, IV fluids, change his Reglan to IV Reglan 10 mg t.i.d., IV Zofran p.r.n. and consult GI and surgery in a.m. Monitor in med/ telemetry. 2. Hypertensive urgency. Currently blood pressure is better controlled. We will continue his home medications and monitor. We will place him on hydralazine p.r.n. 3. Acute kidney injury on chronic kidney disease stage III, baseline creatinine of 2, current creatinine of 2.99. We will avoid nephrotoxic agents. Getting fluids. We will follow the repeat labs in a.m. 4. History of urinary retention: We will monitor. 5. History of type 1 diabetes: We will continue with Lantus 5 units daily and insulin sliding scale. Sugars are high, given a dose of IV insulin . Will monitor 6. History of non-small cell lung cancer, stage III, status post surgery, incomplete chemotherapy secondary to intolerance. Has redemonstration of the left 9th rib lesion, not followed up with oncology yet after discharge. 7. Pain control: Continue his home pain medications. We will place him on IV Dilaudid p.r.n. 8. History of seizure disorder: We will place on IV Keppra 750 b.i.d.Changed to 500mg bid because of ivan as per pharmacy. 9. Chronic anemia: Hemoglobin 9.8, seems at baseline. 10. History of tobacco abuse. 11. Depression: Continue Lexapro. 12. History of chronic obstructive pulmonary disease: Continue home inhalers. 13. History of grade C esophagitis: He is on Protonix. Continue sucralfate. 14. Deep venous thrombosis prophylaxis: Heparin subcutaneous. DISPOSITION: Closely monitor in [facility]. Level 1 full code. Expect to discharge home and follow up with family doctor. Job ID: [id number] [facility]
[2021-01-23] MEDS: CHECK CLONIDINE PATCH PLACEMENT SCH ×3 (02:54→17:41)
[2021-01-23] MEDS ORDERED: Nursing to Pharmacy Communication SCH (06:00)
[2021-01-23] MEDS: INSULIN ASPART 100 UNITS/ML 3 ML PEN SC SCH ×3 (06:17→17:46)
[2021-01-23] MEDS: HEPARIN SOD 5,000 UNIT/0.5 ML VIAL SQ SCH ×3 (06:19→21:07)
[2021-01-23 07:15] LABS: Basophils # (auto) 0.02 K/uL (0-0.2); Basophils % (auto) 0.4 %; Eosinophils # (auto) 0.27 K/uL (0-0.5); Eosinophils % (auto) 5.4 %; Hematocrit (blood only) 25.1 % (42-52); Hemoglobin 8.4 g/dL (14.0-18.0); Immature Granulocytes # (auto) 0.01 K/uL (0.00-0.02); Immature Granulocytes % (auto) 0.2 %; Lymphocytes % (auto) 35.7 %; Mean Corpuscular Hemoglobin 29.6 pg (25-34); Mean Corpuscular Hgb Conc 33.5 g/dL (32-36); Mean Corpuscular Volume 88.4 fL (80-100); Mean Platelet Volume 10.3 fL (7.4-10.4); Monocytes # (auto) 0.37 K/uL (0.11-0.59); Monocytes % (auto) 7.3 %; Neutrophils # (auto) 2.57 K/uL (1.4-6.5); Platelet Count 239 K/uL (130-400); RDW Coefficient of Variation 13.9 % (11.5-14.5); RDW Standard Deviation 45.9 fL (36.4-46.3); Red Blood Count 2.84 M/uL (4.7-6.1); White Blood Count 5.04 K/uL (4.8-10.8)
[2021-01-23] MEDS ORDERED: INSULIN ASPART 100 UNITS/ML 3 ML PEN SC SCH (07:30)
[2021-01-23 07:44] LABS: BUN Creatinine Ratio 10.9 (10-20); Calcium 8.2 mg/dl (8.5-10.1); Creatinine Clr Calc Pharmacy 29.1 ml/min; Est GFR (African American) 28.8 ml/min; Est GFR (Non-African American) 24.8 ml/min; Magnesium 1.8 mg/dl (1.8-2.4); Potassium 4.1 mmol/L (3.5-5.1)
--- NOTE | 2021-01-23 08:05 | Electrocardiogram Report ---
Test Reason : Blood Pressure : / mmHG Vent. Rate : 084 BPM Atrial Rate : 084 BPM P-R Int : 158 ms QRS Dur : 094 ms QT Int : 392 ms P-R-T Axes : 041 -08 031 degrees QTc Int : 463 ms Suspect unspecified pacemaker failure Normal sinus rhythm Old Septal infarct (cited on or before 20-DEC-2020) Abnormal ECG When compared with ECG of 23-DEC-2020 09:04, Nonspecific T wave abnormality, improved in Inferior leads Confirmed by Theo Cleary ([id number]) on 01/23/2021 8:05:08 AM Referred By: REFERRED SELF Confirmed By:Theo Cleary
--- NOTE | 2021-01-23 08:45 | Hospitalist Progress Note ---
Date of Service January 23, 2021 Assessment & Plan (1) Abdominal pain: (2) Nausea & vomiting: (3) [place] grade C esophagitis: Plan: This is a 54-year-old male who presents with nausea, vomiting, abdominal pain. 1. Nausea, vomiting, abdominal pain, - history of gastroparesis, multiple admissions, status post gastric pacemaker. Also, CAT scan showing possible developing small-bowel obstruction versus ileus. n.p.o. on admission except medications, IV fluids, change his Reglan to IV Reglan 10 mg t.i.d., IV Zofran p.r.n. Monitor in med/ telemetry. Consulted GI and surgery - ok to restart gastroparesis diet So far patient tolerating diet Reports pain is mostly coming from the left rib cage where he has known likely metastatic lesion-we will order lidocaine patch for left rib cage Is also supposed to follow-up with his gastric pacemaker physician at [facility] He also has follow-up with oncology given his history of lung cancer and now likely metastatic lesion in left ninth rib, reports currently is appointment is in May, will contact oncology office about possible earlier appointment 2. Hypertensive urgency. Currently blood pressure is better controlled. We will continue his home medications and monitor. We will place him on hydralazine p.r.n. 3. Acute kidney injury on chronic kidney disease stage III, baseline creatinine of 2, creatinine on admission 2.99. We will avoid nephrotoxic agents. Getting fluids. We will follow the repeat labs 4. History of urinary retention: We will monitor. 5. History of type 1 diabetes: We will continue with Lantus 5 units daily and insulin sliding scale. Sugars are high, given a dose of IV insulin . Will monitor 6. History of non-small cell lung cancer, stage III, status post surgery, incomplete chemotherapy secondary to intolerance. Has re- demonstration of the left 9th rib lesion, not followed up with oncology yet after discharge. (as above0 7. Pain control: Continue his home pain medications. We will place him on IV Dilaudid p.r.n. also added lidocaine patch, for left rib cage, as above 8. History of seizure disorder: Placed on IV Keppra 750 b.i.d.Changed to 500mg bid because of johana as per pharmacy. Plan to change back to p.o. Keppra given he seems to tolerate diet 9. Chronic anemia: Hemoglobin 9.8, seems at baseline. 10. History of tobacco abuse. 11. Depression: Continue Lexapro. 12. History of chronic obstructive pulmonary disease: Continue home inhalers. 13. History of grade C esophagitis: He is on Protonix. Continue sucralfate. DVT prophylaxis: Heparin subcutaneous. DISPOSITION: Closely monitor in med tele. Expect to discharge home and follow up with family doctor, oncologist, and specialist for his gastric pacemaker Code: Full Admission and Anticipated Discharge Date Admission Date: January 22, 2021 Subjective Patient seen in follow-up of abdominal pain nausea vomiting Currently laying in bed in no acute distress, reports pain is coming mostly from left rib cage, where he has likely metastatic disease Patient also with known history of gastroparesis GI and surgery consulted Patient denies any fevers, chills, chest pain, shortness of breath. Restarted diet, so far tolerating. Review of Systems Review of Systems: All systems reviewed & are unremarkable except as noted in Subjective Physical Exam Physical Exam: GENERAL: The patient is of moderate build, not in acute distress. HEENT: NC/AT, EOMI, PERRL. Oral mucosa moist. NECK: No JVD, no neck masses. CARDIOVASCULAR: S1 and S2 heard, regular rate and rhythm, no murmur, no gallop. RESPIRATORY: Normal AP diameter. No accessory muscle use. No wheezing, no crackles. ABDOMEN: Soft, bowel sounds present. Mild abdominal discomfort. No guarding, no rigidity, no distention. NEURO: Alert oriented, answers questions appropriately, no facial asymmetry, speech fluent, moves extremities EXTREMITIES: No edema, no erythema. Results & Data Results & Data ([facility]) Vital Signs (Past 12 Hours) Vital Signs Temp Pulse Pulse Resp BP Pulse Ox 01/23/21 07:40 36.5 C 72 16 163/88 H 99 01/23/21 03:00 36.8 C 72 17 148/82 H 98 01/23/21 01:27 36.6 C 74 18 142/82 H 100 01/23/21 01:24 78 01/23/21 00:29 71 18 129/81 99 01/22/21 22:11 75 20 140/83 100 01/22/21 21:21 78 20 153/89 H 94 Laboratory Results 01/23/21 01/23/21 01/23/21 Range/Units 06:49 06:49 06:03 WBC 5.04 (4.8-10.8) K/uL RBC 2.84 L (4.7-6.1) M/uL Hgb 8.4 L (14.0-18.0) g/dL Hct 25.1 L (42-52) % MCV 88.4 (80-100) fL MCH 29.6 (25-34) pg MCHC 33.5 (32-36) g/dL RDW Std Deviation 45.9 (36.4-46.3) fL RDW Coeff of Rik 13.9 (11.5-14.5) % Plt Count 239 (130-400) K/uL MPV 10.3 (7.4-10.4) fL Immature Gran % (Auto) 0.2 % Neut % (Auto) 51.0 % Lymph % (Auto) 35.7 % Hawkins % (Auto) 7.3 % Eos % (Auto) 5.4 % Baso % (Auto) 0.4 % Neut # (Auto) 2.57 (1.4-6.5) K/uL Lymph # (Auto) 1.80 (1.2-3.4) K/uL Hawkins # (Auto) 0.37 (0.11-0.59) K/uL Eos # (Auto) 0.27 (0-0.5) K/uL Baso # (Auto) 0.02 (0-0.2) K/uL Immature Gran # (Auto) 0.01 (0.00-0.02) K/uL Sodium 137 (136-145) mmol/L Potassium 4.1 (3.5-5.1) mmol/L Chloride 107 (98-107) mmol/L Carbon Dioxide 22 (21-32) mmol/L Anion Gap 9.0 (3-11) BUN 30 H (7-18) mg/dl Creatinine 2.75 H (0.6-1.4) mg/dl Est Cr Clr Drug Dosing 29.1 ml/min Est GFR ( Amer) 28.8 ml/min Est GFR (Non-Af Amer) 24.8 ml/min BUN/Creatinine Ratio 10.9 (10-20) Glucose 224 H (70-99) mg/dl POC Glucose 239 H (70-99) mg/dl Calcium 8.2 L (8.5-10.1) mg/dl Magnesium 1.8 (1.8-2.4) mg/dl Total Bilirubin (0.2-1) mg/dl AST (15-37) U/L ALT (12-78) U/L Alkaline Phosphatase (45-117) U/L Troponin I (0-0.045) ng/ml Total Protein (6.4-8.2) gm/dl Albumin (3.4-5.0) gm/dl Globulin (2.5-4.0) gm/dl Albumin/Globulin Ratio (0.9-2) Lipase (73-393) U/L Beta-Hydroxybutyric Acd (0.2-2.81) mg/dl COVID-19 Eval Order SARS-CoV-2 (PCR) (Negative) 01/23/21 01/23/21 01/22/21 Range/Units 00:56 00:18 19:57 WBC (4.8-10.8) K/uL RBC (4.7-6.1) M/uL Hgb (14.0-18.0) g/dL Hct (42-52) % MCV (80-100) fL MCH (25-34) pg MCHC (32-36) g/dL RDW Std Deviation (36.4-46.3) fL RDW Coeff of Rik (11.5-14.5) % Plt Count (130-400) K/uL MPV (7.4-10.4) fL Immature Gran % (Auto) % Neut % (Auto) % Lymph % (Auto) % Hawkins % (Auto) % Eos % (Auto) % Baso % (Auto) % Neut # (Auto) (1.4-6.5) K/uL Lymph # (Auto) (1.2-3.4) K/uL Hawkins # (Auto) (0.11-0.59) K/uL Eos # (Auto) (0-0.5) K/uL Baso # (Auto) (0-0.2) K/uL Immature Gran # (Auto) (0.00-0.02) K/uL Sodium (136-145) mmol/L Potassium (3.5-5.1) mmol/L Chloride (98-107) mmol/L Carbon Dioxide (21-32) mmol/L Anion Gap (3-11) BUN (7-18) mg/dl Creatinine (0.6-1.4) mg/dl Est Cr Clr Drug Dosing ml/min Est GFR ( Amer) ml/min Est GFR (Non-Af Amer) ml/min BUN/Creatinine Ratio (10-20) Glucose (70-99) mg/dl POC Glucose 243 H 221 H 317 H* (70-99) mg/dl Calcium (8.5-10.1) mg/dl Magnesium (1.8-2.4) mg/dl Total Bilirubin (0.2-1) mg/dl AST (15-37) U/L ALT (12-78) U/L Alkaline Phosphatase (45-117) U/L Troponin I (0-0.045) ng/ml Total Protein (6.4-8.2) gm/dl Albumin (3.4-5.0) gm/dl Globulin (2.5-4.0) gm/dl Albumin/Globulin Ratio (0.9-2) Lipase (73-393) U/L Beta-Hydroxybutyric Acd (0.2-2.81) mg/dl COVID-19 Eval Order SARS-CoV-2 (PCR) (Negative) 01/22/21 01/22/21 01/22/21 Range/Units 18:30 18:30 17:55 WBC (4.8-10.8) K/uL RBC (4.7-6.1) M/uL Hgb (14.0-18.0) g/dL Hct (42-52) % MCV (80-100) fL MCH (25-34) pg MCHC (32-36) g/dL RDW Std Deviation (36.4-46.3) fL RDW Coeff of Rik (11.5-14.5) % Plt Count (130-400) K/uL MPV (7.4-10.4) fL Immature Gran % (Auto) % Neut % (Auto) % Lymph % (Auto) % Hawkins % (Auto) % Eos % (Auto) % Baso % (Auto) % Neut # (Auto) (1.4-6.5) K/uL Lymph # (Auto) (1.2-3.4) K/uL Hawkins # (Auto) (0.11-0.59) K/uL Eos # (Auto) (0-0.5) K/uL Baso # (Auto) (0-0.2) K/uL Immature Gran # (Auto) (0.00-0.02) K/uL Sodium 133 L (136-145) mmol/L Potassium 4.7 (3.5-5.1) mmol/L Chloride 102 (98-107) mmol/L Carbon Dioxide 25 (21-32) mmol/L Anion Gap 6.0 (3-11) BUN 33 H (7-18) mg/dl Creatinine 2.99 H (0.6-1.4) mg/dl Est Cr Clr Drug Dosing 27.0 ml/min Est GFR ( Amer) 26.0 ml/min Est GFR (Non-Af Amer) 22.4 ml/min BUN/Creatinine Ratio 10.9 (10-20) Glucose 458 H* (70-99) mg/dl POC Glucose (70-99) mg/dl Calcium 8.2 L (8.5-10.1) mg/dl Magnesium (1.8-2.4) mg/dl Total Bilirubin 0.2 (0.2-1) mg/dl AST 44 H (15-37) U/L ALT 70 (12-78) U/L Alkaline Phosphatase 149 H (45-117) U/L Troponin I < 0.015 (0-0.045) ng/ml Total Protein 7.2 (6.4-8.2) gm/dl Albumin 2.8 L (3.4-5.0) gm/dl Globulin 4.4 H (2.5-4.0) gm/dl Albumin/Globulin Ratio 0.6 L (0.9-2) Lipase 46 L (73-393) U/L Beta-Hydroxybutyric Acd 0.69 (0.2-2.81) mg/dl COVID-19 Eval Order Covid19 at [facility] SARS-CoV-2 (PCR) NEGATIVE (Negative) 01/22/21 Range/Units 17:55 WBC 6.00 (4.8-10.8) K/uL RBC 3.41 L (4.7-6.1) M/uL Hgb 9.8 L (14.0-18.0) g/dL Hct 29.7 L (42-52) % MCV 87.1 (80-100) fL MCH 28.7 (25-34) pg MCHC 33.0 (32-36) g/dL RDW Std Deviation 44.2 (36.4-46.3) fL RDW Coeff of Rik 13.9 (11.5-14.5) % Plt Count 280 (130-400) K/uL MPV 10.1 (7.4-10.4) fL Immature Gran % (Auto) 0.2 % Neut % (Auto) 68.5 % Lymph % (Auto) 19.8 % Hawkins % (Auto) 7.3 % Eos % (Auto) 4.0 % Baso % (Auto) 0.2 % Neut # (Auto) 4.11 (1.4-6.5) K/uL Lymph # (Auto) 1.19 L (1.2-3.4) K/uL Hawkins # (Auto) 0.44 (0.11-0.59) K/uL Eos # (Auto) 0.24 (0-0.5) K/uL Baso # (Auto) 0.01 (0-0.2) K/uL Immature Gran # (Auto) 0.01 (0.00-0.02) K/uL Sodium (136-145) mmol/L Potassium (3.5-5.1) mmol/L Chloride (98-107) mmol/L Carbon Dioxide (21-32) mmol/L Anion Gap (3-11) BUN (7-18) mg/dl Creatinine (0.6-1.4) mg/dl Est Cr Clr Drug Dosing ml/min Est GFR ( Amer) ml/min Est GFR (Non-Af Amer) ml/min BUN/Creatinine Ratio (10-20) Glucose (70-99) mg/dl POC Glucose (70-99) mg/dl Calcium (8.5-10.1) mg/dl Magnesium (1.8-2.4) mg/dl Total Bilirubin (0.2-1) mg/dl AST (15-37) U/L ALT (12-78) U/L Alkaline Phosphatase (45-117) U/L Troponin I (0-0.045) ng/ml Total Protein (6.4-8.2) gm/dl Albumin (3.4-5.0) gm/dl Globulin (2.5-4.0) gm/dl Albumin/Globulin Ratio (0.9-2) Lipase (73-393) U/L Beta-Hydroxybutyric Acd (0.2-2.81) mg/dl COVID-19 Eval Order SARS-CoV-2 (PCR) (Negative) Medications Administered Current Inpatient Medications Acetaminophen (Acetaminophen 325 Mg Tab) 650 mg PO Q4H PRN PRN Reason: Pain or Fever Stop: 02/22/21 01:04 Albuterol (Albuterol Hfa 8 Gm Inhaler) 2 puffs INH Q4R PRN PRN Reason: Shortness Of Breath Stop: 02/22/21 01:04 Amlodipine Besylate (Amlodipine Besylate 5 Mg Tab) 5 mg PO QAM DAMIR Stop: 02/22/21 08:59 Clonidine HCl (Clonidine Hcl 0.2 Mg/24 Hr Transderm Sys) 1 patch TD Q7D DAMIR Stop: 02/22/21 02:14 Last Admin: 01/23/21 02:52 Dose: 1 patch Documented by: Cyclobenzaprine HCl (Cyclobenzaprine Hcl 5 Mg Tab) 5 mg PO TID PRN PRN Reason: Muscle Spasm Stop: 02/22/21 01:04 Dextrose (Dextrose 50% 50 Ml Syringe) 25 - 50 ml IV UD PRN; Protocol PRN Reason: Hypoglycemia Protocol Stop: 02/22/21 01:59 Epinephrine HCl (Epinephrine Inj 1 Mg/Ml Amp) 0.3 mg IM Q3H PRN PRN Reason: Allergic Reaction Stop: 02/22/21 01:33 Escitalopram Oxalate (Escitalopram Oxalate 10 Mg Tab) 10 mg PO QAM DAMIR Stop: 02/22/21 08:59 Fluticasone/Vilanterol (Fluticasone/Vilanterol 100/25mcg 14 Puffs/Inhaler) 1 puffs INH DAILY DAMIR; Protocol Stop: 02/22/21 08:59 Gabapentin (Gabapentin 100 Mg Cap) 100 mg PO TID DAMIR Stop: 02/22/21 08:59 Glucagon (Glucagon For Inj 1 Mg Vial) 1 mg IM UD PRN; Protocol PRN Reason: Hypoglycemia Protocol Stop: 02/22/21 01:59 Glucose (Glucose 40% Gel 15 Gm Tube) 15 - 30 gm PO UD PRN; Protocol PRN Reason: Hypoglycemia Protocol Stop: 02/22/21 01:59 Glucose (Glucose 10 Tabs/Tube) 4 - 8 tabs PO UD PRN; Protocol PRN Reason: Hypoglycemia Protocol Stop: 02/22/21 01:59 Heparin Sodium (Porcine) (Heparin Sod 5,000 Unit/0.5 Ml Vial) 5,000 units SQ Q8 DAMIR Stop: 02/22/21 05:59 Last Admin: 01/23/21 06:19 Dose: 5,000 units Documented by: Sodium Chloride (Nss 1000ml) 1,000 mls @ 125 mls/hr IV .Q8H DAMIR Stop: 02/22/21 01:44 Last Admin: 01/23/21 01:48 Dose: 125 mls/hr Documented by: Levetiracetam 500 mg/ Sodium (Chloride) 105 mls @ 420 mls/hr IV BID DAMIR; Protocol Stop: 02/22/21 08:59 Pantoprazole Sodium 40 mg/ (Syringe) 10 mls @ 5 mls/min IV DAILY@1100 [facility] Stop: 02/22/21 10:59 Insulin Aspart (Insulin Aspart 100 Units/Ml 3 Ml Pen) 0 units SC Q6 DAMIR Stop: 02/22/21 05:59 Last Admin: 01/23/21 06:17 Dose: 4 units Documented by: Insulin Glargine (Insulin Glargine Solostar 100 Units/Ml 3 Ml Pen) 5 units SC DAILY DAMIR Stop: 02/22/21 08:59 Lactobacillus Acidoph/Casei/Rhamnos (Advanced Probiotic 1250 Mg Capsule) 1 cap PO BID@0730,1130 DAMIR Stop: 02/22/21 07:29 Magnesium Oxide (Magnesium Oxide 400 Mg Tab) 400 mg PO BID DAMIR Stop: 02/22/21 08:59 Metoclopramide HCl (Metoclopramide Hcl Inj 5 Mg/Ml 2 Ml Vial) 10 mg IV TID DAMIR Stop: 02/22/21 08:59 Miscellaneous (Check Clonidine Patch Placement) 1 ea N/A QS [facility] Stop: 02/22/21 01:59 Last Admin: 01/23/21 02:54 Dose: 1 ea Documented by: Miscellaneous (Carbohydrates For Hypoglycemia ) 15 - 30 gm PO UD PRN PRN Reason: Hypoglycemia Treatment Stop: 02/22/21 01:59 Miscellaneous (Remove Clonidine Patch) 1 ea N/A Q7D [facility] Stop: 03/01/21 02:13 Morphine Sulfate (Morphine Sulfate Cr 15 Mg Tabcr) 30 mg PO Q12 [facility] Stop: 02/06/21 01:44 Last Admin: 01/23/21 01:48 Dose: 30 mg Documented by: Multivitamins (Multivitamin Tab) 1 tab PO QAM [facility] Stop: 02/22/21 08:59 Nitroglycerin (Nitroglycerin Sl 0.4 Mg/Tab Tab) 0.4 mg SL UD PRN PRN Reason: Chest Pain Stop: 02/22/21 01:04 Ondansetron HCl (Ondansetron Inj 2 Mg/Ml 2 Ml Vial) 4 mg IV Q6H PRN PRN Reason: Nausea Stop: 02/22/21 01:04 Ondansetron HCl (Ondansetron 8mg Od Tab) 8 mg PO Q8H PRN PRN Reason: Nausea Stop: 02/22/21 01:04 Oxycodone HCl (Oxycodone Hcl Ir 5 Mg Tab (Immediate Release)) 5 mg PO Q4H PRN PRN Reason: severe pain Stop: 02/06/21 01:04 Sucralfate (Sucralfate 1 Gm Tab) 1 gm PO QID [facility] Stop: 02/22/21 08:59 (1) Abdominal pain Abdominal location: generalized Qualified Code(s): R10.84 - Generalized abdominal pain (2) Nausea & vomiting Vomiting Intractability: intractable Vomiting type: unspecified Qualified Code(s): R11.2 - Nausea with vomiting, unspecified
[2021-01-23] MEDS ORDERED: MAGNESIUM SULFATE / D5W 1 GM/100 ML BAG IV ONE (09:00)
--- NOTE | 2021-01-23 09:09 | Gastrointestinal Consultation ---
Date of Consultation January 23, 2021 Assessment & Plan (1) Nausea & vomitin55 year old w/ numerous medical comorbidities admitted w/ abd pain, nausea/vomiting CTAP concerning for SBO/ileus. Recent EGD w esophagitis, large amount of retained food in stomach, known gastroparesis KUB this AM Consider general surgery consultation If nausea/vomiting retrun consider NG placement Use Protonix (pantoprazole) 40 mg PO daily. Use sucralfate suspension 1 gram PO QID. Patient should follow-up with his motility specialist Consider discontinuation of narcotic use as these could be worsening his underlying gastroparesis. Thank you for allowing us to participate in the care of this patient. Please call with any acute changes, questions or concerns. Please see addendum below with additional recommendation from my supervising physician. Supervising Physician Co-Signing Physician Notes I have personally seen and examined the patient with LINDSAY Rangel. Her note reflects my exam and findings. I agree with her impression and plan. Cont conservative treatment. No roll for endoscopy at this point. Ilir Ballard M.D. History of Present Illness Reason for Consultation: nausea/vomiting Requesting Physician: Philipp Attending Physician: Lorne Segal MD History of Present Illness 55 year old male with history of COPD; non-small cell lung cancer, stage III, status post surgery, incomplete chemotherapy secondary to intolerance; history of ulcerative colitis; gastroparesis, status post gastric pacemaker x 2, most recently in May 2020; chronic pain, on narcotics; hypertension; type 1 diabetes; diabetic neuropathy; past tobacco abuse; chronic kidney disease, baseline creatinine around 2; chronic anemia, baseline hemoglobin around 2; history of seizure disorder; history of neurogenic bladder admitted nausea/vomiting abd pain CTAP w/ ileus vs SBO, esophagitis and lytic left rib lesions. Pt notes he has left sided abd pain. No nausea, vomiting. Had sips this AM. TOlerated. Moving bowels. Has had loose stools x 3 days. No BM yet this AM. No fever, chills, CP, SOB. CTAP 2020: . Possible developing small bowel obstruction versus ileus. Few fluid filled slightly dilated loops of small bowel are intermixed with normal caliber and collapsed loops of small bowel. Evaluation is limited due to lack of IV and oral contrast as well as very little amount of intra-abdominal fat. Report will be sent to emergency Department.Mild diffuse thickening of the esophageal wall which was also seen on prior study, could represent esophagitis which was also seen during recent prior study. Redemonstration of the lytic lesion within left ninth rib suggestive of metastatic disease. Appendix is not well seen. The rest of findings as above. EGD 2020: LA Grade C esophagitis. - A large amount of food (residue) in the stomach. - No specimens collected. Allergies Allergy/AdvReac Type Severity Reaction Status Date / Time bee venom protein (honey bee) Allergy Mild SWELLING Verified 01/22/21 18:57 AT SITE, SOB Penicillins Allergy Unknown "SINCE Verified 01/22/21 18:57 "-Amoxicillin cat dander Allergy Unknown Verified 01/22/21 18:57 Home Medications Medication Instructions Recorded Confirmed Type albuterol sulfate 90 mcg/actuation 2 puff INHALATION Q4H PRN 05/05/18 01/22/21 History aerosol inhaler (Ventolin HFA) epinephrine 0.3 mg/0.3 mL 0.3 mg IM Q3H PRN 05/05/18 01/22/21 History injection, auto-injector (EpiPen) insulin glargine 100 unit/mL (3 7 unit SUBCUT HS 05/05/18 01/22/21 History mL) subcutaneous pen (Basaglar KwikPen U-100 Insulin) insulin lispro 100 unit/mL 1 sliding scale dose SUBCUT UD 05/05/18 01/22/21 History subcutaneous cartridge (Humalog U-100 Insulin) multivitamin 1 tab PO QAM 05/05/18 01/22/21 History pantoprazole 40 mg tablet,delayed 40 mg PO QAM 05/05/18 01/22/21 History release (Protonix) clonidine 0.2 mg/24 hr weekly 1 patch TRANSDERMAL TH@01/23/20 01/23/21 History transdermal patch (Demggnng-OWN-8) escitalopram oxalate 10 mg tablet 10 mg PO QAM 01/24/20 01/22/21 History (Lexapro) fluticasone 250 mcg-salmeterol 50 1 inh INHALATION BID 01/24/20 01/22/21 History mcg/dose blistr powdr for inhalation (Wixela Inhub) amlodipine 5 mg tablet (Norvasc) 5 mg PO QAM #30 tab 01/29/20 01/22/21 Rx levetiracetam 750 mg tablet 750 mg PO BID 30 Days #60 tab 01/29/20 01/22/21 Rx (Keppra) cyclobenzaprine 5 mg tablet 5 mg PO TID PRN 12/20/20 01/22/21 History ondansetron 8 mg disintegrating 8 mg PO Q8H PRN 12/20/20 01/22/21 History tablet morphine 30 mg tablet,extended 30 mg PO Q12H #10 tab 12/29/20 01/22/21 Rx release (MS Contin) L.acidop,casei,lactis,rham-B.lact,jose 1 cap PO BID 01/22/21 01/22/21 History 625 mg (10 billion cell) capsule (Advanced Probiotic) gabapentin 100 mg capsule 100 mg PO TID 01/22/21 01/22/21 History (Neurontin) magnesium oxide 400 mg (241.3 mg 400 mg PO BID 01/22/21 01/22/21 History magnesium) tablet (MagOx) metoclopramide HCl 10 mg tablet 10 mg PO ACHS 01/22/21 01/22/21 History (Reglan) oxycodone 5 mg tablet (Roxicodone) 5 mg PO Q4H PRN 01/22/21 01/22/21 History sucralfate 1 gram tablet (Carafate) 1 g PO QID 01/22/21 01/22/21 History Patient History Medical History Acute dyspnea Acute hyponatremia Acute renal insufficiency IVAN (acute kidney injury) Anemia Chest pain No current chest pain...related to reflux per patient Chronic pain COPD (chronic obstructive pulmonary disease) Diabetes mellitus type 2, uncontrolled Diabetic autonomic neuropathy Diabetic peripheral neuropathy Discharge planning issues DVT prophylaxis Elevated d-dimer Gastroparesis "s/p gastric stimulator" Hypertension Hypomagnesemia Intractable nausea and vomiting 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 One 1 mm polyp in the ascending colon resected. One benign appearing 1 mm polyp in the rectum resected. Internal hemorrhoids; Dr. Demarco" H/O esophagogastroduodenoscopy "01/26/2015- LA Grade B reflux esophagitis, gastritis; Dr. 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 Beliefs That Will Affect Care: Spiritism Spiritism Beliefs: Mormonism marital status: Single Current Living Situation: Alone Other Information That Helps Us Care for You: No Feels Safe at Home: Yes Safety Concerns: Feels Safe At This Time Assistive Devices: Cane, Special Shoe and Walker Review of Systems Review of Systems: All systems reviewed & are unremarkable except as noted in HPI & below Physical Exam Constitutional: WD/WN, vitals as above Eyes: PERRL, conjunctivae normal, anicteric sclerae Neck: trachea midline, no thyromegaly Respiratory: normal respiratory effort, lungs clear to auscultation Cardiovascular: Rate/Rhythm: regular rate and regular rhythm Gastrointestinal (Abdomen): Inspection/Auscultation: abdomen normal to inspection and normal bowel sounds; abdomen not distended Percussion/Palpation: abdomen soft; abdomen nontender, no guarding and abdomen not rigid Skin: no rashes, warm and dry Results & Data ([facility]) Vital Signs (Past 12 Hours) Vital Signs Temp Pulse Pulse Resp BP Pulse Ox 01/23/21 07:40 36.5 C 72 16 163/88 H 99 01/23/21 03:00 36.8 C 72 17 148/82 H 98 01/23/21 01:27 36.6 C 74 18 142/82 H 100 01/23/21 01:24 78 01/23/21 00:29 71 18 129/81 99 01/22/21 22:11 75 20 140/83 100 01/22/21 21:21 78 20 153/89 H 94 Laboratory Results 01/23/21 01/23/21 01/23/21 Range/Units 06:49 06:49 06:03 WBC 5.04 (4.8-10.8) K/uL RBC 2.84 L (4.7-6.1) M/uL Hgb 8.4 L (14.0-18.0) g/dL Hct 25.1 L (42-52) % MCV 88.4 (80-100) fL MCH 29.6 (25-34) pg MCHC 33.5 (32-36) g/dL RDW Std Deviation 45.9 (36.4-46.3) fL RDW Coeff of Rik 13.9 (11.5-14.5) % Plt Count 239 (130-400) K/uL MPV 10.3 (7.4-10.4) fL Immature Gran % (Auto) 0.2 % Neut % (Auto) 51.0 % Lymph % (Auto) 35.7 % [place] % (Auto) 7.3 % Eos % (Auto) 5.4 % Baso % (Auto) 0.4 % Neut # (Auto) 2.57 (1.4-6.5) K/uL Lymph # (Auto) 1.80 (1.2-3.4) K/uL [place] # (Auto) 0.37 (0.11-0.59) K/uL Eos # (Auto) 0.27 (0-0.5) K/uL Baso # (Auto) 0.02 (0-0.2) K/uL Immature Gran # (Auto) 0.01 (0.00-0.02) K/uL Sodium 137 (136-145) mmol/L Potassium 4.1 (3.5-5.1) mmol/L Chloride 107 (98-107) mmol/L Carbon Dioxide 22 (21-32) mmol/L Anion Gap 9.0 (3-11) BUN 30 H (7-18) mg/dl Creatinine 2.75 H (0.6-1.4) mg/dl Est Cr Clr Drug Dosing 29.1 ml/min Est GFR ( Amer) 28.8 ml/min Est GFR (Non-Af Amer) 24.8 ml/min BUN/Creatinine Ratio 10.9 (10-20) Glucose 224 H (70-99) mg/dl POC Glucose 239 H (70-99) mg/dl Calcium 8.2 L (8.5-10.1) mg/dl Magnesium 1.8 (1.8-2.4) mg/dl Total Bilirubin (0.2-1) mg/dl AST (15-37) U/L ALT (12-78) U/L Alkaline Phosphatase (45-117) U/L Troponin I (0-0.045) ng/ml Total Protein (6.4-8.2) gm/dl Albumin (3.4-5.0) gm/dl Globulin (2.5-4.0) gm/dl Albumin/Globulin Ratio (0.9-2) Lipase (73-393) U/L Beta-Hydroxybutyric Acd (0.2-2.81) mg/dl COVID-19 Eval Order SARS-CoV-2 (PCR) (Negative) 01/23/21 01/23/21 01/22/21 Range/Units 00:56 00:18 19:57 WBC (4.8-10.8) K/uL RBC (4.7-6.1) M/uL Hgb (14.0-18.0) g/dL Hct (42-52) % MCV (80-100) fL MCH (25-34) pg MCHC (32-36) g/dL RDW Std Deviation (36.4-46.3) fL RDW Coeff of Rik (11.5-14.5) % Plt Count (130-400) K/uL MPV (7.4-10.4) fL Immature Gran % (Auto) % Neut % (Auto) % Lymph % (Auto) % [place] % (Auto) % Eos % (Auto) % Baso % (Auto) % Neut # (Auto) (1.4-6.5) K/uL Lymph # (Auto) (1.2-3.4) K/uL [place] # (Auto) (0.11-0.59) K/uL Eos # (Auto) (0-0.5) K/uL Baso # (Auto) (0-0.2) K/uL Immature Gran # (Auto) (0.00-0.02) K/uL Sodium (136-145) mmol/L Potassium (3.5-5.1) mmol/L Chloride (98-107) mmol/L Carbon Dioxide (21-32) mmol/L Anion Gap (3-11) BUN (7-18) mg/dl Creatinine (0.6-1.4) mg/dl Est Cr Clr Drug Dosing ml/min Est GFR ( Amer) ml/min Est GFR (Non-Af Amer) ml/min BUN/Creatinine Ratio (10-20) Glucose (70-99) mg/dl POC Glucose 243 H 221 H 317 H* (70-99) mg/dl Calcium (8.5-10.1) mg/dl Magnesium (1.8-2.4) mg/dl Total Bilirubin (0.2-1) mg/dl AST (15-37) U/L ALT (12-78) U/L Alkaline Phosphatase (45-117) U/L Troponin I (0-0.045) ng/ml Total Protein (6.4-8.2) gm/dl Albumin (3.4-5.0) gm/dl Globulin (2.5-4.0) gm/dl Albumin/Globulin Ratio (0.9-2) Lipase (73-393) U/L Beta-Hydroxybutyric Acd (0.2-2.81) mg/dl COVID-19 Eval Order SARS-CoV-2 (PCR) (Negative) 01/22/21 01/22/21 01/22/21 Range/Units 18:30 18:30 17:55 WBC (4.8-10.8) K/uL RBC (4.7-6.1) M/uL Hgb (14.0-18.0) g/dL Hct (42-52) % MCV (80-100) fL MCH (25-34) pg MCHC (32-36) g/dL RDW Std Deviation (36.4-46.3) fL RDW Coeff of Rik (11.5-14.5) % Plt Count (130-400) K/uL MPV (7.4-10.4) fL Immature Gran % (Auto) % Neut % (Auto) % Lymph % (Auto) % [place] % (Auto) % Eos % (Auto) % Baso % (Auto) % Neut # (Auto) (1.4-6.5) K/uL Lymph # (Auto) (1.2-3.4) K/uL [place] # (Auto) (0.11-0.59) K/uL Eos # (Auto) (0-0.5) K/uL Baso # (Auto) (0-0.2) K/uL Immature Gran # (Auto) (0.00-0.02) K/uL Sodium 133 L (136-145) mmol/L Potassium 4.7 (3.5-5.1) mmol/L Chloride 102 (98-107) mmol/L Carbon Dioxide 25 (21-32) mmol/L Anion Gap 6.0 (3-11) BUN 33 H (7-18) mg/dl Creatinine 2.99 H (0.6-1.4) mg/dl Est Cr Clr Drug Dosing 27.0 ml/min Est GFR ( Amer) 26.0 ml/min Est GFR (Non-Af Amer) 22.4 ml/min BUN/Creatinine Ratio 10.9 (10-20) Glucose 458 H* (70-99) mg/dl POC Glucose (70-99) mg/dl Calcium 8.2 L (8.5-10.1) mg/dl Magnesium (1.8-2.4) mg/dl Total Bilirubin 0.2 (0.2-1) mg/dl AST 44 H (15-37) U/L ALT 70 (12-78) U/L Alkaline Phosphatase 149 H (45-117) U/L Troponin I < 0.015 (0-0.045) ng/ml Total Protein 7.2 (6.4-8.2) gm/dl Albumin 2.8 L (3.4-5.0) gm/dl Globulin 4.4 H (2.5-4.0) gm/dl Albumin/Globulin Ratio 0.6 L (0.9-2) Lipase 46 L (73-393) U/L Beta-Hydroxybutyric Acd 0.69 (0.2-2.81) mg/dl COVID-19 Eval Order Covid19 at [facility] SARS-CoV-2 (PCR) NEGATIVE (Negative) 01/22/21 Range/Units 17:55 WBC 6.00 (4.8-10.8) K/uL RBC 3.41 L (4.7-6.1) M/uL Hgb 9.8 L (14.0-18.0) g/dL Hct 29.7 L (42-52) % MCV 87.1 (80-100) fL MCH 28.7 (25-34) pg MCHC 33.0 (32-36) g/dL RDW Std Deviation 44.2 (36.4-46.3) fL RDW Coeff of Rik 13.9 (11.5-14.5) % Plt Count 280 (130-400) K/uL MPV 10.1 (7.4-10.4) fL Immature Gran % (Auto) 0.2 % Neut % (Auto) 68.5 % Lymph % (Auto) 19.8 % [place] % (Auto) 7.3 % Eos % (Auto) 4.0 % Baso % (Auto) 0.2 % Neut # (Auto) 4.11 (1.4-6.5) K/uL Lymph # (Auto) 1.19 L (1.2-3.4) K/uL [place] # (Auto) 0.44 (0.11-0.59) K/uL Eos # (Auto) 0.24 (0-0.5) K/uL Baso # (Auto) 0.01 (0-0.2) K/uL Immature Gran # (Auto) 0.01 (0.00-0.02) K/uL Sodium (136-145) mmol/L Potassium (3.5-5.1) mmol/L Chloride (98-107) mmol/L Carbon Dioxide (21-32) mmol/L Anion Gap (3-11) BUN (7-18) mg/dl Creatinine (0.6-1.4) mg/dl Est Cr Clr Drug Dosing ml/min Est GFR ( Amer) ml/min Est GFR (Non-Af Amer) ml/min BUN/Creatinine Ratio (10-20) Glucose (70-99) mg/dl POC Glucose (70-99) mg/dl Calcium (8.5-10.1) mg/dl Magnesium (1.8-2.4) mg/dl Total Bilirubin (0.2-1) mg/dl AST (15-37) U/L ALT (12-78) U/L Alkaline Phosphatase (45-117) U/L Troponin I (0-0.045) ng/ml Total Protein (6.4-8.2) gm/dl Albumin (3.4-5.0) gm/dl Globulin (2.5-4.0) gm/dl Albumin/Globulin Ratio (0.9-2) Lipase (73-393) U/L Beta-Hydroxybutyric Acd (0.2-2.81) mg/dl COVID-19 Eval Order SARS-CoV-2 (PCR) (Negative) (1) Nausea & vomiting Vomiting Intractability: intractable Vomiting type: unspecified Qualified Code(s): R11.2 - Nausea with vomiting, unspecified
[2021-01-23] MEDS: levETIRAcetam 500 MG in 0.9 % SODIUM CHLORIDE 100 ML IV SCH ×2 (09:25→21:06)
[2021-01-23] MEDS: ADVANCED PROBIOTIC 1250 MG CAPSULE PO SCH ×2 (09:29→12:03)
[2021-01-23] MEDS: GABAPENTIN 100 MG CAP PO SCH ×3 (09:29→21:06)
[2021-01-23] MEDS: amLODIPine BESYLATE 5 MG TAB PO SCH (09:30)
[2021-01-23] MEDS: INSULIN GLARGINE SOLOSTAR 100 UNITS/ML 3 ML PEN SC SCH (09:30)
[2021-01-23] MEDS: MAGNESIUM OXIDE 400 MG TAB PO SCH ×2 (09:30→21:07)
[2021-01-23] MEDS: SUCRALFATE 1 GM TAB PO SCH ×4 (09:30→21:07)
[2021-01-23] MEDS: ESCITALOPRAM OXALATE 10 MG TAB PO SCH (09:31)
[2021-01-23] MEDS: MULTIVITAMIN TAB PO SCH (09:31)
[2021-01-23] MEDS: METOCLOPRAMIDE HCL INJ 5 MG/ML 2 ML VIAL IV SCH ×3 (09:31→21:07)
[2021-01-23] MEDS: FLUTICASONE/VILANTEROL 100/25MCG 14 PUFFS/INHALER INH SCH (09:32)
[2021-01-23] MEDS: PANTOprazole 40 MG in SYRINGE 0 ML IV SCH (12:03)
--- NOTE | 2021-01-23 16:40 | Surgery Consultation ---
Date of Consultation January 23, 2021 Assessment & Plan (1) Nausea & vomitin55 y/o male with multiple medical problems with nausea likely secondary to gastroparesis. He is moving his bowels with no abdominal pain, CT unremarkable for obstruction on my read. No evidence of bowel obstruction diet as tolerated from surgery standpoint, see GI note regarding gastroparesis diet surgery will sign off, call with questions or concerns (2) Gastroparesis: History of Present Illness Attending Physician: Lorne Segal MD History of Present Illness 55 y/o male with multiple medical problems including gastroparesis with gastric stimulator, presented early this morning with nausea and vomiting. CT showed mild small bowel dilation with no transition point, likely ileus vs partial sbo. Since admission he has been having bm's and passing gas per his report. Pain on left side at site of metastatic disease to 9th rib. Stable nausea secondary to gastroparesis. Asking for diet. Allergies Allergy/AdvReac Type Severity Reaction Status Date / Time bee venom protein (honey bee) Allergy Mild SWELLING Verified 01/22/21 18:57 AT SITE, SOB Penicillins Allergy Unknown "SINCE Verified 01/22/21 18:57 "-Amoxicillin cat dander Allergy Unknown Verified 01/22/21 18:57 Home Medications Medication Instructions Recorded Confirmed Type albuterol sulfate 90 mcg/actuation 2 puff INHALATION Q4H PRN 05/05/18 01/22/21 History aerosol inhaler (Ventolin HFA) epinephrine 0.3 mg/0.3 mL 0.3 mg IM Q3H PRN 05/05/18 01/22/21 History injection, auto-injector (EpiPen) insulin glargine 100 unit/mL (3 7 unit SUBCUT HS 05/05/18 01/22/21 History mL) subcutaneous pen (Basaglar KwikPen U-100 Insulin) insulin lispro 100 unit/mL 1 sliding scale dose SUBCUT UD 05/05/18 01/22/21 History subcutaneous cartridge (Humalog U-100 Insulin) multivitamin 1 tab PO QAM 05/05/18 01/22/21 History pantoprazole 40 mg tablet,delayed 40 mg PO QAM 05/05/18 01/22/21 History release (Protonix) clonidine 0.2 mg/24 hr weekly 1 patch TRANSDERMAL @01/23/20 01/23/21 History transdermal patch (Vxyjzjul-ZAQ-3) escitalopram oxalate 10 mg tablet 10 mg PO QAM 01/24/20 01/22/21 History (Lexapro) fluticasone 250 mcg-salmeterol 50 1 inh INHALATION BID 01/24/20 01/22/21 History mcg/dose blistr powdr for inhalation (Wixela Inhub) amlodipine 5 mg tablet (Norvasc) 5 mg PO QAM #30 tab 01/29/20 01/22/21 Rx levetiracetam 750 mg tablet 750 mg PO BID 30 Days #60 tab 01/29/20 01/22/21 Rx (Keppra) cyclobenzaprine 5 mg tablet 5 mg PO TID PRN 12/20/20 01/22/21 History ondansetron 8 mg disintegrating 8 mg PO Q8H PRN 12/20/20 01/22/21 History tablet morphine 30 mg tablet,extended 30 mg PO Q12H #10 tab 12/29/20 01/22/21 Rx release (MS Contin) L.acidop,casei,lactis,rham-B.lact,jose 1 cap PO BID 01/22/21 01/22/21 History 625 mg (10 billion cell) capsule (Advanced Probiotic) gabapentin 100 mg capsule 100 mg PO TID 01/22/21 01/22/21 History (Neurontin) magnesium oxide 400 mg (241.3 mg 400 mg PO BID 01/22/21 01/22/21 History magnesium) tablet (MagOx) metoclopramide HCl 10 mg tablet 10 mg PO ACHS 01/22/21 01/22/21 History (Reglan) oxycodone 5 mg tablet (Roxicodone) 5 mg PO Q4H PRN 01/22/21 01/22/21 History sucralfate 1 gram tablet (Carafate) 1 g PO QID 01/22/21 01/22/21 History Patient History Medical History Acute dyspnea Acute hyponatremia Acute renal insufficiency IVAN (acute kidney injury) Anemia Chest pain No current chest pain...related to reflux per patient Chronic pain COPD (chronic obstructive pulmonary disease) Diabetes mellitus type 2, uncontrolled Diabetic autonomic neuropathy Diabetic peripheral neuropathy Discharge planning issues DVT prophylaxis Elevated d-dimer Gastroparesis "s/p gastric stimulator" Hypertension Hypomagnesemia Intractable nausea and vomiting 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 One 1 mm polyp in the ascending colon resected. One benign appearing 1 mm polyp in the rectum resected. Internal hemorrhoids; Dr. Demarco" H/O esophagogastroduodenoscopy "01/26/2015- [place] Grade B reflux esophagitis, gastritis; Dr. 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 Beliefs That Will Affect Care: Mormonism Mormonism Beliefs: Faith marital status: Single Current Living Situation: Alone Other Information That Helps Us Care for You: No Feels Safe at Home: Yes Safety Concerns: Feels Safe At This Time Assistive Devices: Walker Review of Systems Review of Systems: All systems reviewed & are unremarkable except as noted in HPI & below Physical Exam Constitutional: WD/WN, vitals as above + thin Respiratory: normal respiratory effort, lungs clear to auscultation Cardiovascular: RRR, no murmur, no edema Gastrointestinal (Abdomen): normal bowel sounds, soft, nontender, no hepatosplenomegaly Inspection/Auscultation: + abdominal surgical scar Results & Data ([facility]) Vital Signs (Past 12 Hours) Vital Signs Temp Pulse Pulse Resp BP Pulse Ox 01/23/21 16:13 67 01/23/21 15:31 36.4 C L 66 16 131/76 99 01/23/21 11:01 36.6 C 76 16 117/71 92 01/23/21 08:00 71 01/23/21 07:40 36.5 C 72 16 163/88 H 99 Laboratory Results Laboratory Results - last 24 hr 01/22/21 01/22/21 01/22/21 17:55 17:55 18:30 WBC 6.00 RBC 3.41 L Hgb 9.8 L Hct 29.7 L MCV 87.1 MCH 28.7 MCHC 33.0 RDW Std Deviation 44.2 RDW Coeff of Rik 13.9 Plt Count 280 MPV 10.1 Immature Gran % (Auto) 0.2 Neut % (Auto) 68.5 Lymph % (Auto) 19.8 [place] % (Auto) 7.3 Eos % (Auto) 4.0 Baso % (Auto) 0.2 Neut # (Auto) 4.11 Lymph # (Auto) 1.19 L [place] # (Auto) 0.44 Eos # (Auto) 0.24 Baso # (Auto) 0.01 Immature Gran # (Auto) 0.01 Sodium 133 L Potassium 4.7 Chloride 102 Carbon Dioxide 25 Anion Gap 6.0 BUN 33 H Creatinine 2.99 H Est Cr Clr Drug Dosing 27.0 Est GFR ( Amer) 26.0 Est GFR (Non-Af Amer) 22.4 BUN/Creatinine Ratio 10.9 Glucose 458 H* POC Glucose Calcium 8.2 L Magnesium Total Bilirubin 0.2 AST 44 H ALT 70 Alkaline Phosphatase 149 H Troponin I < 0.015 Total Protein 7.2 Albumin 2.8 L Globulin 4.4 H Albumin/Globulin Ratio 0.6 L Lipase 46 L Beta-Hydroxybutyric Acd 0.69 COVID-19 Eval Order Covid19 at [facility] SARS-CoV-2 (PCR) 01/22/21 01/22/21 01/23/21 18:30 19:57 00:18 WBC RBC Hgb Hct MCV MCH MCHC RDW Std Deviation RDW Coeff of Rik Plt Count MPV Immature Gran % (Auto) Neut % (Auto) Lymph % (Auto) [place] % (Auto) Eos % (Auto) Baso % (Auto) Neut # (Auto) Lymph # (Auto) [place] # (Auto) Eos # (Auto) Baso # (Auto) Immature Gran # (Auto) Sodium Potassium Chloride Carbon Dioxide Anion Gap BUN Creatinine Est Cr Clr Drug Dosing Est GFR ( Amer) Est GFR (Non-Af Amer) BUN/Creatinine Ratio Glucose POC Glucose 317 H* 221 H Calcium Magnesium Total Bilirubin AST ALT Alkaline Phosphatase Troponin I Total Protein Albumin Globulin Albumin/Globulin Ratio Lipase Beta-Hydroxybutyric Acd COVID-19 Eval Order SARS-CoV-2 (PCR) NEGATIVE 01/23/21 01/23/21 01/23/21 00:56 06:03 06:49 WBC 5.04 RBC 2.84 L Hgb 8.4 L Hct 25.1 L MCV 88.4 MCH 29.6 MCHC 33.5 RDW Std Deviation 45.9 RDW Coeff of Rik 13.9 Plt Count 239 MPV 10.3 Immature Gran % (Auto) 0.2 Neut % (Auto) 51.0 Lymph % (Auto) 35.7 [place] % (Auto) 7.3 Eos % (Auto) 5.4 Baso % (Auto) 0.4 Neut # (Auto) 2.57 Lymph # (Auto) 1.80 [place] # (Auto) 0.37 Eos # (Auto) 0.27 Baso # (Auto) 0.02 Immature Gran # (Auto) 0.01 Sodium Potassium Chloride Carbon Dioxide Anion Gap BUN Creatinine Est Cr Clr Drug Dosing Est GFR ( Amer) Est GFR (Non-Af Amer) BUN/Creatinine Ratio Glucose POC Glucose 243 H 239 H Calcium Magnesium Total Bilirubin AST ALT Alkaline Phosphatase Troponin I Total Protein Albumin Globulin Albumin/Globulin Ratio Lipase Beta-Hydroxybutyric Acd COVID-19 Eval Order SARS-CoV-2 (PCR) 01/23/21 01/23/21 06:49 12:03 WBC RBC Hgb Hct MCV MCH MCHC RDW Std Deviation RDW Coeff of Rik Plt Count MPV Immature Gran % (Auto) Neut % (Auto) Lymph % (Auto) [place] % (Auto) Eos % (Auto) Baso % (Auto) Neut # (Auto) Lymph # (Auto) [place] # (Auto) Eos # (Auto) Baso # (Auto) Immature Gran # (Auto) Sodium 137 Potassium 4.1 Chloride 107 Carbon Dioxide 22 Anion Gap 9.0 BUN 30 H Creatinine 2.75 H Est Cr Clr Drug Dosing 29.1 Est GFR ( Amer) 28.8 Est GFR (Non-Af Amer) 24.8 BUN/Creatinine Ratio 10.9 Glucose 224 H POC Glucose 199 H Calcium 8.2 L Magnesium 1.8 Total Bilirubin AST ALT Alkaline Phosphatase Troponin I Total Protein Albumin Globulin Albumin/Globulin Ratio Lipase Beta-Hydroxybutyric Acd COVID-19 Eval Order SARS-CoV-2 (PCR) Diagnostic Findings CT SCAN OF THE ABDOMEN AND PELVIS WITHOUT CONTRAST CLINICAL HISTORY: abd pain, nausea/vomiting COMPARISON STUDY: January 07, 2021 TECHNIQUE: CT scan of the abdomen and pelvis was performed from the lung bases to the proximal femurs. Images are reviewed in the axial, sagittal, and coronal planes. IV contrast was not administered for this examination. A dose lowering technique was utilized adhering to the principles of ALARA. CT DOSE: 405.41 mGy.cm FINDINGS: Lower chest: No infiltrates or consolidative lesions are seen. Liver: The unenhanced liver is normal in size, contour, and attenuation. There is no intrahepatic biliary ductal dilatation. Questionable surgical adrienne are seen at the left border of the liver. Gallbladder: Is surgically absent. Spleen: Normal in size and attenuation. Pancreas: Is atrophic. Adrenal glands: Unremarkable. Kidneys: The unenhanced kidneys are normal in size without hydronephrosis. There is no contour deforming renal mass lesion. No renal calculi are identified. Bowel: Redemonstration of the mild diffuse thickening of the lower esophageal wall. Loops of small bowel are fluid-filled and mildly dilated measuring up to 3.3 cm in diameter (2/21). Possible narrowing at the terminal ileum (3/247) might represent at least partial small bowel obstruction. Also there are few other collapse areas of small bowel are seen throughout the abdomen. Limited evaluation due to lack of IV and oral contrast as well as beam hardening artifact from gastric stimulator within left anterior abdominal wall. Appendix is not well seen. Moderate stool burden is seen within loops of large bowel. Peritoneum: There is no intraperitoneal free air or abdominal ascites. Vasculature: The abdominal aorta is normal in course and caliber. Adenopathy: Possible mesenteric lymphadenopathy however evaluation is limited due to motion artifact and very little amount of intra-abdominal fat. Pelvic viscera: Urinary bladder is adequately filled with urine. Mild thickening of urinary bladder wall is again seen. Prostate gland is mildly enlarged. Skeletal structures: Redemonstration of the lytic lesion within left ninth rib. Osseous structures are diffusely demineralized. Multilevel degenerative changes of the spine are seen. IMPRESSION: 1. Possible developing small bowel obstruction versus ileus. Few fluid filled slightly dilated loops of small bowel are intermixed with normal caliber and collapsed loops of small bowel. Evaluation is limited due to lack of IV and oral contrast as well as very little amount of intra-abdominal fat. Report will be sent to emergency Department. 2. Mild diffuse thickening of the esophageal wall which was also seen on prior study, could represent esophagitis which was also seen during recent prior study. 3. Redemonstration of the lytic lesion within left ninth rib suggestive of metastatic disease. 4. Appendix is not well seen. 5. The rest of findings as above. PG Care Time/CCT Total # of Minutes Spent Total Time Spent with Patient: Total time spent is greater than 50% in coordination of care (as documented) at patient's floor/unit and/or counseling patient: Coding Level of Care Code 90375 Initial Inpt Care Lvl 2 Diagnoses Nausea & vomiting R11.2 Vomiting Intractability: intractable Vomiting type: unspecified Gastroparesis K31.84 (1) Nausea & vomiting Vomiting Intractability: intractable Vomiting type: unspecified Qualified Code(s): R11.2 - Nausea with vomiting, unspecified
[2021-01-23] MEDS: oxyCODONE HCL IR 5 MG TAB (IMMEDIATE RELEASE) PO PRN (18:39)
[2021-01-23] MEDS: ONDANSETRON INJ 2 MG/ML 2 ML VIAL IV PRN (19:49)
[2021-01-23] MEDS: LIDOCAINE 5% 1 PATCH TD SCH (21:05)
[2021-01-24] MEDS: oxyCODONE HCL IR 5 MG TAB (IMMEDIATE RELEASE) PO PRN ×2 (00:17→19:17)
[2021-01-24] MEDS: CHECK CLONIDINE PATCH PLACEMENT SCH ×3 (00:18→15:30)
[2021-01-24] MEDS: INSULIN ASPART 100 UNITS/ML 3 ML PEN SC SCH ×5 (00:19→20:00)
[2021-01-24] MEDS ORDERED: Nursing to Pharmacy Communication SCH (01:00)
[2021-01-24] MEDS: SODIUM CHLORIDE 0.9% 1000ML 1,000 ML IV SCH ×3 (01:53→18:00)
[2021-01-24] MEDS: HEPARIN SOD 5,000 UNIT/0.5 ML VIAL SQ SCH ×3 (06:08→21:01)
[2021-01-24] MEDS: METOCLOPRAMIDE HCL INJ 5 MG/ML 2 ML VIAL IV SCH ×3 (07:35→20:02)
[2021-01-24] MEDS: FLUTICASONE/VILANTEROL 100/25MCG 14 PUFFS/INHALER INH SCH (07:35)
[2021-01-24] MEDS: LIDOCAINE 5% 1 PATCH TD SCH ×2 (07:35→20:04)
[2021-01-24] MEDS: MoRPHine SULFATE CR 15 MG TABCR PO SCH ×2 (07:35→20:15)
[2021-01-24] MEDS: amLODIPine BESYLATE 5 MG TAB PO SCH (07:36)
[2021-01-24] MEDS: SUCRALFATE 1 GM TAB PO SCH ×4 (07:36→20:03)
[2021-01-24] MEDS: ESCITALOPRAM OXALATE 10 MG TAB PO SCH (07:36)
[2021-01-24] MEDS: GABAPENTIN 100 MG CAP PO SCH ×3 (07:36→19:59)
[2021-01-24] MEDS: MAGNESIUM OXIDE 400 MG TAB PO SCH ×2 (07:36→20:02)
[2021-01-24] MEDS: MULTIVITAMIN TAB PO SCH (07:36)
[2021-01-24] MEDS: ADVANCED PROBIOTIC 1250 MG CAPSULE PO SCH ×2 (07:36→10:54)
[2021-01-24 07:52] LABS: Creatinine Clr Calc Pharmacy 34.8 ml/min; Est GFR (African American) 35.3 ml/min; Est GFR (Non-African American) 30.5 ml/min
[2021-01-24] MEDS: INSULIN GLARGINE SOLOSTAR 100 UNITS/ML 3 ML PEN SC SCH (08:40)
[2021-01-24] MEDS: levETIRAcetam 500 MG in 0.9 % SODIUM CHLORIDE 100 ML IV SCH (10:08)
[2021-01-24] MEDS: PANTOprazole 40 MG in SYRINGE 0 ML IV SCH (10:54)
--- NOTE | 2021-01-24 14:06 | Hospitalist Progress Note ---
Date of Service January 24, 2021 Assessment & Plan (1) Abdominal pain: (2) Nausea & vomiting: (3) Churchill grade C esophagitis: Plan: This is a 54-year-old male who presents with nausea, vomiting, abdominal pain. 1. Nausea, vomiting, abdominal pain, - history of gastroparesis, multiple admissions, status post gastric pacemaker. Also, CAT scan showing possible developing small-bowel obstruction versus ileus. n.p.o. on admission except medications, IV fluids, change his Reglan to IV Reglan 10 mg t.i.d., IV Zofran p.r.n. Monitor in med/ telemetry. Consulted GI and surgery - ok to restart gastroparesis diet So far patient tolerating diet however still some episodes of vomiting Reports pain is mostly coming from the left rib cage where he has known likely metastatic lesion-we will order lidocaine patch for left rib cage He is upposed to follow-up with his gastric pacemaker physician at [facility] - will try to arrange earlier appointment He also has follow-up with oncology given his history of lung cancer and now likely metastatic lesion in left ninth rib, reports currently his appointment is in May, will contact oncology office about possible earlier appointment 2. Hypertensive urgency. Currently blood pressure is better controlled. We will continue his home medications and monitor. We will place him on hydralazine p.r.n. 3. Acute kidney injury on chronic kidney disease stage III, baseline creatinine of 2, creatinine on admission 2.99. We will avoid nephrotoxic agents. Getting fluids. We will follow the repeat labs 4. History of urinary retention: We will monitor. 5. History of type 1 diabetes: We will continue with Lantus 5 units daily and insulin sliding scale. Sugars are high, given a dose of IV insulin . Will monitor 6. History of non-small cell lung cancer, stage III, status post surgery, incomplete chemotherapy secondary to intolerance. Has re- demonstration of the left 9th rib lesion, not followed up with oncology yet after discharge. (as above) 7. Pain control: Continue his home pain medications. We will place him on IV Dilaudid p.r.n. also added lidocaine patch, for left rib cage, as above 8. History of seizure disorder: Placed on IV Keppra 750 b.i.d.Changed to 500mg bid because of johana as per pharmacy. Plan to change back to p.o. Keppra given he seems to tolerate diet 9. Chronic anemia: Hemoglobin 9.8, seems at baseline. 10. History of tobacco abuse. 11. Depression: Continue Lexapro. 12. History of chronic obstructive pulmonary disease: Continue home inhalers. 13. History of grade C esophagitis: He is on Protonix. Continue sucralfate. DVT prophylaxis: Heparin subcutaneous. DISPOSITION: Closely monitor in med tele. Expect to discharge home and follow up with family doctor, oncologist, and specialist for his gastric pacemaker Code: Full Admission and Anticipated Discharge Date Admission Date: January 22, 2021 Subjective Patient seen in follow-up of abdominal pain nausea vomiting Pt re-admitted for the same Currently sitting upin bed in no acute distress, reports he vomited after breakfast but now feels better pain is coming mostly from left rib cage, where he has likely metastatic disease Patient also with known history of gastroparesis GI and surgery consulted Patient denies any fevers, chills, chest pain, shortness of breath. Review of Systems Review of Systems: All systems reviewed & are unremarkable except as noted in Subjective Physical Exam Physical Exam: GENERAL: The patient is of moderate build, not in acute distress. HEENT: NC/AT, EOMI, PERRL. Oral mucosa moist. NECK: No JVD, no neck masses. CARDIOVASCULAR: S1 and S2 heard, regular rate and rhythm, no murmur, no gallop. RESPIRATORY: Normal AP diameter. No accessory muscle use. No wheezing, no crackles. ABDOMEN: Soft, bowel sounds present. Mild abdominal discomfort. No guarding, no rigidity, no distention. NEURO: Alert oriented, answers questions appropriately, no facial asymmetry, speech fluent, moves extremities EXTREMITIES: No edema, no erythema. Results & Data Results & Data ([facility]) Vital Signs (Past 12 Hours) Vital Signs Temp Pulse Pulse Pulse Resp BP BP 01/24/21 10:57 36.6 C 78 18 131/78 01/24/21 09:23 68 01/24/21 07:42 36.5 C 75 18 158/96 H 01/24/21 04:08 36.5 C 72 18 163/94 H Pulse Ox 01/24/21 10:57 100 01/24/21 09:23 01/24/21 07:42 100 01/24/21 04:08 100 Laboratory Results 01/24/21 01/24/21 01/24/21 Range/Units 11:28 07:38 06:58 Creatinine 2.32 H D (0.6-1.4) mg/dl Est Cr Clr Drug Dosing 34.8 ml/min Est GFR ( Amer) 35.3 ml/min Est GFR (Non-Af Amer) 30.5 ml/min POC Glucose 133 H 130 H (70-99) mg/dl 01/24/21 01/23/21 Range/Units 00:14 17:44 Creatinine (0.6-1.4) mg/dl Est Cr Clr Drug Dosing ml/min Est GFR ( Amer) ml/min Est GFR (Non-Af Amer) ml/min POC Glucose 285 H 129 H (70-99) mg/dl Medications Administered Current Inpatient Medications Acetaminophen (Acetaminophen 325 Mg Tab) 650 mg PO Q4H PRN PRN Reason: Pain or Fever Stop: 02/22/21 01:04 Albuterol (Albuterol Hfa 8 Gm Inhaler) 2 puffs INH Q4R PRN PRN Reason: Shortness Of Breath Stop: 02/22/21 01:04 Amlodipine Besylate (Amlodipine Besylate 5 Mg Tab) 5 mg PO QAM DAMIR Stop: 02/22/21 08:59 Last Admin: 01/24/21 07:36 Dose: 5 mg Documented by: Clonidine HCl (Clonidine Hcl 0.2 Mg/24 Hr Transderm Sys) 1 patch TD Q7D DAMIR Stop: 02/22/21 02:14 Last Admin: 01/23/21 02:52 Dose: 1 patch Documented by: Cyclobenzaprine HCl (Cyclobenzaprine Hcl 5 Mg Tab) 5 mg PO TID PRN PRN Reason: Muscle Spasm Stop: 02/22/21 01:04 Dextrose (Dextrose 50% 50 Ml Syringe) 25 - 50 ml IV UD PRN; Protocol PRN Reason: Hypoglycemia Protocol Stop: 02/22/21 01:59 Epinephrine HCl (Epinephrine Inj 1 Mg/Ml Amp) 0.3 mg IM Q3H PRN PRN Reason: Allergic Reaction Stop: 02/22/21 01:33 Escitalopram Oxalate (Escitalopram Oxalate 10 Mg Tab) 10 mg PO QAM DAMIR Stop: 02/22/21 08:59 Last Admin: 01/24/21 07:36 Dose: 10 mg Documented by: Fluticasone/Vilanterol (Fluticasone/Vilanterol 100/25mcg 14 Puffs/Inhaler) 1 puffs INH DAILY [facility]; Protocol Stop: 02/22/21 08:59 Last Admin: 01/24/21 07:35 Dose: 1 puffs Documented by: Gabapentin (Gabapentin 100 Mg Cap) 100 mg PO TID DAMIR Stop: 02/22/21 08:59 Last Admin: 01/24/21 13:06 Dose: 100 mg Documented by: Glucagon (Glucagon For Inj 1 Mg Vial) 1 mg IM UD PRN; Protocol PRN Reason: Hypoglycemia Protocol Stop: 02/22/21 01:59 Glucose (Glucose 40% Gel 15 Gm Tube) 15 - 30 gm PO UD PRN; Protocol PRN Reason: Hypoglycemia Protocol Stop: 02/22/21 01:59 Glucose (Glucose 10 Tabs/Tube) 4 - 8 tabs PO UD PRN; Protocol PRN Reason: Hypoglycemia Protocol Stop: 02/22/21 01:59 Heparin Sodium (Porcine) (Heparin Sod 5,000 Unit/0.5 Ml Vial) 5,000 units SQ Q8 DAMIR Stop: 02/22/21 05:59 Last Admin: 01/24/21 13:06 Dose: 5,000 units Documented by: Sodium Chloride (Nss 1000ml) 1,000 mls @ 125 mls/hr IV .Q8H [facility] Stop: 02/22/21 01:44 Last Admin: 01/24/21 09:53 Dose: 125 mls/hr Documented by: Pantoprazole Sodium 40 mg/ (Syringe) 10 mls @ 5 mls/min IV DAILY@1100 [facility] Stop: 02/22/21 10:59 Last Admin: 01/24/21 10:54 Dose: 5 mls/min Documented by: Insulin Aspart (Insulin Aspart 100 Units/Ml 3 Ml Pen) 0 units SC ACHS DAMIR Stop: 02/23/21 07:29 Last Admin: 01/24/21 11:57 Dose: 7 units Documented by: Insulin Glargine (Insulin Glargine Solostar 100 Units/Ml 3 Ml Pen) 5 units SC DAILY [facility] Stop: 02/22/21 08:59 Last Admin: 01/24/21 08:40 Dose: 5 units Documented by: Lactobacillus Acidoph/Casei/Rhamnos (Advanced Probiotic 1250 Mg Capsule) 1 cap PO BID@0730,1130 [facility] Stop: 02/22/21 07:29 Last Admin: 01/24/21 10:54 Dose: 1 cap Documented by: Levetiracetam (Levetiracetam 250 Mg Tab) 750 mg PO BID [facility] Stop: 02/23/21 20:59 Lidocaine (Lidocaine 5% 1 Patch) 1 patch TD DAILY DAMIR Stop: 02/22/21 19:44 Last Admin: 01/24/21 07:35 Dose: 1 patch Documented by: Magnesium Oxide (Magnesium Oxide 400 Mg Tab) 400 mg PO BID [facility] Stop: 02/22/21 08:59 Last Admin: 01/24/21 07:36 Dose: 400 mg Documented by: Metoclopramide HCl (Metoclopramide Hcl Inj 5 Mg/Ml 2 Ml Vial) 10 mg IV TID [facility] Stop: 02/22/21 08:59 Last Admin: 01/24/21 13:06 Dose: 10 mg Documented by: Miscellaneous (Check Clonidine Patch Placement) 1 ea N/A QS [facility] Stop: 02/22/21 01:59 Last Admin: 01/24/21 07:36 Dose: 1 ea Documented by: Miscellaneous (Carbohydrates For Hypoglycemia ) 15 - 30 gm PO UD PRN PRN Reason: Hypoglycemia Treatment Stop: 02/22/21 01:59 Miscellaneous (Remove Clonidine Patch) 1 ea N/A Q7D [facility] Stop: 03/01/21 02:13 Miscellaneous (Remove Lidoderm Patch) 1 ea N/A DAILY@2100 [facility] Stop: 02/23/21 00:59 Last Admin: 01/24/21 01:08 Dose: 1 ea Documented by: Morphine Sulfate (Morphine Sulfate Cr 15 Mg Tabcr) 30 mg PO Q12 [facility] Stop: 02/06/21 01:44 Last Admin: 01/24/21 07:35 Dose: 30 mg Documented by: Multivitamins (Multivitamin Tab) 1 tab PO QAM [facility] Stop: 02/22/21 08:59 Last Admin: 01/24/21 07:36 Dose: 1 tab Documented by: Nitroglycerin (Nitroglycerin Sl 0.4 Mg/Tab Tab) 0.4 mg SL UD PRN PRN Reason: Chest Pain Stop: 02/22/21 01:04 Ondansetron HCl (Ondansetron Inj 2 Mg/Ml 2 Ml Vial) 4 mg IV Q6H PRN PRN Reason: Nausea Stop: 02/22/21 01:04 Last Admin: 01/23/21 19:49 Dose: 4 mg Documented by: Ondansetron HCl (Ondansetron 8mg Od Tab) 8 mg PO Q8H PRN PRN Reason: Nausea Stop: 02/22/21 01:04 Last Admin: 01/23/21 09:36 Dose: 8 mg Documented by: Oxycodone HCl (Oxycodone Hcl Ir 5 Mg Tab (Immediate Release)) 5 mg PO Q4H PRN PRN Reason: severe pain Stop: 02/06/21 01:04 Last Admin: 01/24/21 00:17 Dose: 5 mg Documented by: Sucralfate (Sucralfate 1 Gm Tab) 1 gm PO QID DAMIR Stop: 02/22/21 08:59 Last Admin: 01/24/21 11:59 Dose: 1 gm Documented by: (1) Nausea & vomiting Vomiting Intractability: intractable Vomiting type: unspecified Qualified Code(s): R11.2 - Nausea with vomiting, unspecified (2) Abdominal pain Abdominal location: generalized Qualified Code(s): R10.84 - Generalized abdominal pain
[2021-01-24] MEDS: DEXTROSE 50% 50 ML SYRINGE IV PRN (19:56)
[2021-01-24] MEDS: levETIRAcetam 250 MG TAB PO SCH (21:01)
[2021-01-25] MEDS: CHECK CLONIDINE PATCH PLACEMENT SCH ×3 (00:33→16:04)
[2021-01-25] MEDS: oxyCODONE HCL IR 5 MG TAB (IMMEDIATE RELEASE) PO PRN ×2 (02:17→16:31)
[2021-01-25] MEDS: SODIUM CHLORIDE 0.9% 1000ML 1,000 ML IV SCH ×3 (05:00→18:38)
[2021-01-25] MEDS: HEPARIN SOD 5,000 UNIT/0.5 ML VIAL SQ SCH ×3 (06:19→22:04)
[2021-01-25 06:31] LABS: Hematocrit (blood only) 24.1 % (42-52); Hemoglobin 7.6 g/dL (14.0-18.0); Mean Corpuscular Hemoglobin 28.7 pg (25-34); Mean Corpuscular Hgb Conc 31.5 g/dL (32-36); Mean Corpuscular Volume 90.9 fL (80-100); Mean Platelet Volume 10.5 fL (7.4-10.4); Platelet Count 221 K/uL (130-400); RDW Coefficient of Variation 14.2 % (11.5-14.5); RDW Standard Deviation 47.4 fL (36.4-46.3); Red Blood Count 2.65 M/uL (4.7-6.1); White Blood Count 4.06 K/uL (4.8-10.8)
[2021-01-25 06:59] LABS: Calcium 7.4 mg/dl (8.5-10.1); Creatinine Clr Calc Pharmacy 29.5 ml/min; Est GFR (African American) 28.9 ml/min; Est GFR (Non-African American) 24.9 ml/min; Magnesium 1.8 mg/dl (1.8-2.4); Phosphorus 3.9 mg/dl (2.5-4.9); Potassium 4.7 mmol/L (3.5-5.1)
[2021-01-25] MEDS: SUCRALFATE 1 GM TAB PO SCH ×4 (08:22→22:05)
[2021-01-25] MEDS: GABAPENTIN 100 MG CAP PO SCH ×3 (08:23→22:05)
[2021-01-25] MEDS: METOCLOPRAMIDE HCL INJ 5 MG/ML 2 ML VIAL IV SCH ×3 (08:23→22:04)
[2021-01-25] MEDS: ADVANCED PROBIOTIC 1250 MG CAPSULE PO SCH ×2 (08:23→12:21)
[2021-01-25] MEDS: MAGNESIUM OXIDE 400 MG TAB PO SCH ×2 (08:23→22:05)
[2021-01-25] MEDS: FLUTICASONE/VILANTEROL 100/25MCG 14 PUFFS/INHALER INH SCH (08:24)
[2021-01-25] MEDS: ESCITALOPRAM OXALATE 10 MG TAB PO SCH (08:24)
[2021-01-25] MEDS: amLODIPine BESYLATE 5 MG TAB PO SCH (08:25)
[2021-01-25] MEDS: MULTIVITAMIN TAB PO SCH (08:25)
[2021-01-25] MEDS: LIDOCAINE 5% 1 PATCH TD SCH ×2 (08:26→08:49)
[2021-01-25] MEDS: ONDANSETRON INJ 2 MG/ML 2 ML VIAL IV PRN (08:45)
[2021-01-25] MEDS: INSULIN GLARGINE SOLOSTAR 100 UNITS/ML 3 ML PEN SC SCH (08:53)
[2021-01-25] MEDS: MoRPHine SULFATE CR 15 MG TABCR PO SCH ×2 (08:57→22:04)
[2021-01-25] MEDS: INSULIN ASPART 100 UNITS/ML 3 ML PEN SC SCH ×4 (08:58→22:07)
[2021-01-25] MEDS: levETIRAcetam 250 MG TAB PO SCH ×2 (10:39→22:05)
[2021-01-25] MEDS: PANTOprazole 40 MG in SYRINGE 0 ML IV SCH (12:21)
--- NOTE | 2021-01-25 15:21 | Hospitalist Progress Note ---
Date of Service January 25, 2021 Assessment & Plan (1) Abdominal pain: (2) Nausea & vomiting: (3) [place] grade C esophagitis: Plan: This is a 54-year-old male who presents with nausea, vomiting, abdominal pain. 1. Nausea, vomiting, abdominal pain, - history of gastroparesis, multiple admissions, status post gastric pacemaker. Also, CAT scan showing possible developing small-bowel obstruction versus ileus. change his Reglan to IV Reglan 10 mg t.i.d., IV Zofran p.r.n. Monitor in med/ telemetry. Consulted GI and surgery - ok to restart gastroparesis diet So far patient tolerating diet however still some episodes of vomiting Reports pain is mostly coming from the left rib cage where he has known likely metastatic lesion-we will order lidocaine patch for left rib cage He is supposed to follow-up with his gastric pacemaker physician at [facility] - will try to arrange earlier appointment He also has follow-up with oncology given his history of lung cancer and now likely metastatic lesion in left ninth rib, reports currently his appointment is in May, will contact oncology office about possible earlier appointment Today patient reported that he is continues to have significant left-sided abdominal pain. He had episode of emesis this morning and last evening. We will continue to monitor for now. 2. Hypertensive urgency. Currently blood pressure is better controlled. We will continue his home medications and monitor. We will place him on hydralazine p.r.n. 3. Acute kidney injury on chronic kidney disease stage III, baseline creatinine of 2, creatinine on admission 2.99. Today at 2.74. We will avoid nephrotoxic agents. Getting fluids. Monitor daily BMP. 4. History of urinary retention: We will monitor. 5. History of type 1 diabetes: We will continue with Lantus 5 units daily and insulin sliding scale. Sugars are high, given a dose of IV insulin . Will monitor 6. History of non-small cell lung cancer, stage III, status post surgery, incomplete chemotherapy secondary to intolerance. Has re-demonstration of the left 9th rib lesion, not followed up with oncology yet after discharge. (as above) 7. Pain control: Continue his home pain medications. We will place him on IV Dilaudid p.r.n. also added lidocaine patch, for left rib cage, as above 8. History of seizure disorder: Placed on IV Keppra 750 b.i.d.Changed to 500mg bid because of johana as per pharmacy. Plan to change back to p.o. Keppra given he seems to tolerate diet 9. Chronic anemia: Hemoglobin 9.8, seems at baseline. 10. History of tobacco abuse. 11. Depression: Continue Lexapro. 12. History of chronic obstructive pulmonary disease: Continue home inhalers. 13. History of grade C esophagitis: He is on Protonix. Continue sucralfate. DVT prophylaxis: Heparin subcutaneous. DISPOSITION: Closely monitor in med tele. Expect to discharge home and follow up with family doctor, oncologist, and specialist for his gastric pacemaker Code: Full Admission and Anticipated Discharge Date Admission Date: January 22, 2021 Subjective Patient reports he had an episode of vomiting last evening and again this morning. Continues to experience left-sided abdominal pain that is 10 out of 10. Denies any chest pain or shortness of breath. Denies any diarrhea. Rest of the review of system is negative. Review of Systems Review of Systems: All systems reviewed & are unremarkable except as noted in HPI & below Physical Exam Physical Exam: General: A&Ox3 HENT: NCAT, MMM, EOMI Eyes: PERRLA Neck: Supple, normal range of motion CVS: normal rate and rhythm Resp: b/l good breath sounds Abdomen: Soft, left-sided tenderness appreciated Extremities: No c/c/e Neuro: face symmetric, strength grossly equal, no focal deficit Skin: warm and dry, no rashes/lesions/errythema MSK: normal ROM, no joint swelling/erythema Results & Data Results & Data ([facility]) Vital Signs (Past 12 Hours) Vital Signs Temp Pulse Pulse Resp BP Pulse Ox 01/25/21 08:00 76 01/25/21 07:42 36.6 C 76 18 131/68 97 01/25/21 04:00 36.7 C 85 18 160/79 H 98 (1) Nausea & vomiting Vomiting Intractability: intractable Vomiting type: unspecified Qualified Code(s): R11.2 - Nausea with vomiting, unspecified (2) Abdominal pain Abdominal location: generalized Qualified Code(s): R10.84 - Generalized abdominal pain
[2021-01-25] MEDS: DEXTROSE 50% 50 ML SYRINGE IV PRN (20:51)
[2021-01-26] MEDS: CHECK CLONIDINE PATCH PLACEMENT SCH ×2 (00:32→09:01)
[2021-01-26] MEDS: oxyCODONE HCL IR 5 MG TAB (IMMEDIATE RELEASE) PO PRN (02:55)
[2021-01-26] MEDS: SODIUM CHLORIDE 0.9% 1000ML 1,000 ML IV SCH ×2 (02:55→09:06)
[2021-01-26] MEDS: HEPARIN SOD 5,000 UNIT/0.5 ML VIAL SQ SCH (06:15)
[2021-01-26 07:50] LABS: Creatinine Clr Calc Pharmacy 30.4 ml/min; Est GFR (Non-African American) 25.8 ml/min
[2021-01-26 07:56] VITALS: O2SAT 98
[2021-01-26] MEDS: INSULIN ASPART 100 UNITS/ML 3 ML PEN SC SCH ×2 (08:58→12:35)
[2021-01-26] MEDS: INSULIN GLARGINE SOLOSTAR 100 UNITS/ML 3 ML PEN SC SCH (09:00)
[2021-01-26] MEDS: ADVANCED PROBIOTIC 1250 MG CAPSULE PO SCH ×2 (09:01→11:47)
[2021-01-26] MEDS: amLODIPine BESYLATE 5 MG TAB PO SCH (09:02)
[2021-01-26] MEDS: GABAPENTIN 100 MG CAP PO SCH (09:03)
[2021-01-26] MEDS: ESCITALOPRAM OXALATE 10 MG TAB PO SCH (09:03)
[2021-01-26] MEDS: FLUTICASONE/VILANTEROL 100/25MCG 14 PUFFS/INHALER INH SCH (09:03)
[2021-01-26] MEDS: levETIRAcetam 250 MG TAB PO SCH (09:04)
[2021-01-26] MEDS: LIDOCAINE 5% 1 PATCH TD SCH ×2 (09:04)
[2021-01-26] MEDS: METOCLOPRAMIDE HCL INJ 5 MG/ML 2 ML VIAL IV SCH (09:05)
[2021-01-26] MEDS: MAGNESIUM OXIDE 400 MG TAB PO SCH (09:05)
[2021-01-26] MEDS: MoRPHine SULFATE CR 15 MG TABCR PO SCH (09:06)
[2021-01-26] MEDS: MULTIVITAMIN TAB PO SCH (09:06)
[2021-01-26] MEDS: SUCRALFATE 1 GM TAB PO SCH ×2 (09:06→12:04)
[2021-01-26 11:31] VITALS: TEMP 97.7
[2021-01-26] MEDS: CARBOHYDRATES FOR HYPOGLYCEMIA PO PRN ×2 (11:45→12:03)
[2021-01-26] MEDS: PANTOprazole 40 MG in SYRINGE 0 ML IV SCH (11:46)
--- NOTE | 2021-01-26 13:25 | Discharge Summary ---
Date of Service January 26, 2021 Admission HPI Per Admitting Provider This 55-year-old male with past medical history significant for COPD, non-small cell lung cancer, stage III, status post surgery, incomplete chemotherapy secondary to intolerance, history of ulcerative colitis, gastroparesis, status post gastric pacemaker, chronic pain, on narcotics, hypertension, type 1 diabetes, diabetic neuropathy, history of past tobacco abuse, chronic kidney disease, baseline creatinine of 2, chronic anemia, baseline hemoglobin around 9, history of seizure disorder, history of neurogenic bladder as per records, recent admissions initially with toxic encephalopathy and respiratory failure, thought to be from narcotic meds and IVAN, also left ring finger wound growing MSSA, status post treatment, got discharged, again came back with nausea, vomiting and elevated blood pressure, and status post EGD showing grade C esophagitis. Hypertensive urgency, improved and also noted to have lesion in the left 9th rib, supposed to follow up with oncologist. He was discharged home on 01/12/2021. Lives at home alone, ambulates with a walker, sometimes cane, comes back again with persistent nausea, vomiting, abdominal pain, pain more in the left 9th rib region and states pain all over his body, not feeling well and came to the hospital. In the ER at this time, his hemodynamics are okay. Initially, his blood pressure was elevated, but it is improved and his imaging studies, CT of abdomen and pelvis was done, which was showing possible small-bowel obstruction versus ileus. Currently, the patient is resting comfortably, but complains of pain all over his body and has pain in the left 9th rib region and abdominal discomfort. States he is able to swallow his pills at home okay, and the last couple of days he is not eating much because of nausea, vomiting. Denies any blood in stools or black stools. Normal bladder movements. Denies any fevers. Has some cough. He also complains of shortness of breath, but he is saturating okay in the ER. Denies any headache. No blurred visions, no runny nose, no sore throat. Admission Exam Per Admitting Provider GENERAL: The patient is of moderate build, not in acute distress. VITAL SIGNS: Temperature 36.3, pulse 75, respiratory rate 20, blood pressure when he came in was in 216/122, currently 140/83, oxygen 100% on room air. HEENT: Pupils equal, round and reactive to light. Oral mucosa moist. NECK: No JVD, no neck masses. CARDIOVASCULAR: S1 and S2 heard, regular rate and rhythm, no murmur, no gallop. RESPIRATORY: Normal AP diameter. No accessory muscle use. No wheezing, no crackles. ABDOMEN: Soft, bowel sounds present. Mild abdominal discomfort. No guarding, no rigidity, no distention. CENTRAL NERVOUS SYSTEM: Cranial nerves II-XII grossly intact, nonfocal. EXTREMITIES: No edema, no erythema. Principal Diagnosis (1) Abdominal pain: (2) Nausea & vomiting: (3) [place] grade C esophagitis Discharge Exam General: A&Ox3 HENT: NCAT, MMM, EOMI Eyes: PERRLA Neck: Supple, normal range of motion CVS: normal rate and rhythm Resp: b/l good breath sounds Abdomen: Soft, left-sided tenderness improved Extremities: No c/c/e Neuro: face symmetric, strength grossly equal, no focal deficit Skin: warm and dry, no rashes/lesions/errythema MSK: normal ROM, no joint swelling/erythema Discharge Data Allergies Allergy/AdvReac Type Severity Reaction Status Date / Time bee venom protein (honey bee) Allergy Mild SWELLING Verified 01/22/21 18:57 AT SITE, SOB Penicillins Allergy Unknown "SINCE Verified 01/22/21 18:57 "-Amoxicillin cat dander Allergy Unknown Verified 01/22/21 18:57 Consultations 01/22/21 21:12 ED Decision to Admit Stat 01/23/21 08:00 Consult General Surgery Routine 01/23/21 11:00 Consult Gastroenterology Routine Ordered Studies 01/22/21 18:26 CT abd pelvis wo con Stat Hospital Course (1) Abdominal pain: (2) Nausea & vomiting: (3) [place] grade C esophagitis: This is a 54-year-old male who presents with nausea, vomiting, abdominal pain. 1. Nausea, vomiting, abdominal pain, - history of gastroparesis, multiple admissions, status post gastric pacemaker. Also, CAT scan showing possible developing small-bowel obstruction versus ileus. Consulted GI and surgery - ok to restart gastroparesis diet Reports pain is mostly coming from the left rib cage where he has known likely metastatic lesion-we will order lidocaine patch for left rib cage He is supposed to follow-up with his gastric pacemaker physician at [facility] - his appointment was arranged prior to discharge. He also has follow-up with oncology given his history of lung cancer and now likely metastatic lesion in left ninth rib, reports currently his appointment is in May, and early appointment will be set up with oncology. The day of discharge patient was doing okay. His pain was well controlled. Patient was tolerating diet. Other episode of emesis. Patient was discharged in stable condition. 2. Hypertensive urgency. -Resolved prior to discharge. 3. Acute kidney injury on chronic kidney disease stage III, baseline creatinine of 2, creatinine on admission 2.99. 2.66 on the day of discharge, will avoid nephrotoxic agents. Monitor daily BMP. 4. History of urinary retention: We will monitor. 5. History of type 1 diabetes: Continue [employer] regimen. 6. History of non-small cell lung cancer, stage III, status post surgery, incomplete chemotherapy secondary to intolerance. Has re- demonstration of the left 9th rib lesion, not followed up with oncology yet after discharge. (as above) 7. Pain control: Continue his home pain medications. 8. History of seizure disorder: Continue [employer] Keppra 750 mg twice daily. 9. Chronic anemia: Hemoglobin 9.8, seems at baseline. 10. History of tobacco abuse. 11. Depression: Continue Lexapro. 12. History of chronic obstructive pulmonary disease: Continue home inhalers. 13. History of grade C esophagitis: He is on Protonix. Continue sucralfate. Total Time Total Time Spent Total Time Spent (In Minutes): 35 Discharge Plan Discharge Items Patient Disposition: Home - Self-Care Reason For Visit: NAUSEA/VOMITING Discharge Diagnosis: Abdominal pain Activity: Resume your previous activity Non-emergency contact: Primary Care Provider Call non-emergency contact if: your symptoms worsen Follow-up/Referrals: [facility] [Other] - 01/31/21 2:00 pm ([facility] [address] [place] [address] [address] Mendoza) Juan Lamb MD [Primary Care Provider] - (Date & Time 01/30/2021 11:20 AM Provider Juan Davis MD Department [facility] ) Diet: Regular Addtl Attending Provider Instructions: Follow-up with your primary care physician, oncologist and flight engineer as an outpatient. Pending Studies at Discharge: No Stand-Alone Forms: My [facility], Smoking Cessation Medications and DC Order Prescriptions: Continued clonidine [[id number]] 0.2 mg/24 hr patch weekly 1 patch transdermal TH@09 RF: 0 fluticasone propion-salmeterol [Wixela Inhub] 250-50 mcg/dose Blister With Device 1 inh INHALATION BID RF: 0 escitalopram oxalate [Lexapro] 10 mg Tablet 10 mg PO QAM RF: 0 amlodipine [Norvasc] 5 mg Tablet 5 mg PO QAM Qty: 30 RF: 0 levetiracetam [Keppra] 750 mg tablet 750 mg PO BID 30 Days Qty: 60 RF: 1 multivitamin Tablet 1 tab PO QAM RF: 0 pantoprazole [Protonix] 40 mg tablet,delayed release (DR/EC) 40 mg PO QAM RF: 0 epinephrine [EpiPen] 0.3 mg/0.3 mL Auto-Injector 0.3 mg IM Q3H PRN (Reason: Allergic Reaction) RF: 0 albuterol sulfate [Ventolin HFA] 90 mcg/actuation Hfa Aerosol Inhaler 2 puff INHALATION Q4H PRN (Reason: Shortness Of Breath) RF: 0 Humalog U-100 Insulin 100 unit/mL Cartridge 1 sliding scale dose SUBCUT UD RF: 0 Basaglar KwikPen U-100 Insulin 100 unit/mL (3 mL) Insulin Pen 7 unit SUBCUT HS RF: 0 ondansetron 8 mg Tablet,Disintegrating 8 mg PO Q8H PRN (Reason: Nausea) RF: 0 cyclobenzaprine 5 mg Tablet 5 mg PO TID PRN (Reason: Muscle Spasm) RF: 0 morphine [MS Contin] 30 mg tablet extended release 30 mg PO Q12H Qty: 10 RF: 0 sucralfate [Carafate] 1 gram tablet 1 g PO QID RF: 0 magnesium oxide [MagOx] 400 mg (241.3 mg magnesium) tablet 400 mg PO BID RF: 0 gabapentin [Neurontin] 100 mg capsule 100 mg PO TID RF: 0 metoclopramide HCl [Reglan] 10 mg tablet 10 mg PO ACHS RF: 0 oxycodone [Roxicodone] 5 mg tablet 5 mg PO Q4H PRN (Reason: severe pain) RF: 0 Advanced Probiotic 625 mg (10 billion cell) capsule 1 cap PO BID RF: 0 Discharge Orders: Discharge Order (Routine); Ordered 01/26/21 Ordered By: Crystal Knight Admission Data Admit Date/Time: 01/22/21 23:39 Attending Provider: Crystal Knight Admit Provider: Aguila Saenz Primary Care Provider: Juan Lamb Other Providers: Aguila Saenz ; Hubert Rao ; Fuad Masterson ; Rupinder Mansfield ; Constance Chaves ; Ike Amaya ; Bunny Arredondo ; Azra Serrano ; Saba Otto ; Juan A Schumacher Jr ; Daryl Castillo ; Jack Delgado ; Malia Hilario ; Mahesh Avila ; [facility]
[2021-01-26 14:12] VITALS: BP 131/78; PULSE 72
[2021-01-27] MEDS ORDERED: INSULIN GLARGINE SOLOSTAR 100 UNITS/ML 3 ML PEN SC SCH (09:00)
== END 2021-01-26 14:54 | disposition home or self-care (01) | DRG 392 ==
LOC: ED 17:17 → SUATTDRO 23:39 → 2W 23:39

== ENCOUNTER 2021-02-03 17:02 | Observation (INO) ==
[2021-02-03 20:00] LABS: Basophils # (auto) 0.03 K/uL (0-0.2); Basophils % (auto) 0.6 %; Eosinophils % (auto) 1.9 %; Hematocrit (blood only) 32.1 % (42-52); Hemoglobin 10.9 g/dL (14.0-18.0); Immature Granulocytes # (auto) 0.01 K/uL (0.00-0.02); Immature Granulocytes % (auto) 0.2 %; Lymphocytes # (auto) 1.38 K/uL (1.2-3.4); Lymphocytes % (auto) 26.4 %; Mean Corpuscular Hemoglobin 28.8 pg (25-34); Mean Corpuscular Volume 84.9 fL (80-100); Mean Platelet Volume 10.7 fL (7.4-10.4); Monocytes # (auto) 0.45 K/uL (0.11-0.59); Monocytes % (auto) 8.6 %; Neutrophils # (auto) 3.25 K/uL (1.4-6.5); Neutrophils % (auto) 62.3 %; Platelet Count 200 K/uL (130-400); RDW Standard Deviation 43.6 fL (36.4-46.3); Red Blood Count 3.78 M/uL (4.7-6.1); White Blood Count 5.22 K/uL (4.8-10.8)
[2021-02-03] MEDS ORDERED: ONDANSETRON INJ 2 MG/ML 2 ML VIAL IV STA ×2 (20:15→21:35)
[2021-02-03] MEDS ORDERED: SODIUM CHLORIDE 0.9% 1000ML 1,000 ML IV ONE (20:15)
--- NOTE | 2021-02-03 20:21 | Emergency Department Note ---
History of Present Illness General Chief complaint: Abdominal Pain Stated complaint: ABDOMINAL PAIN, N/V Time Seen by Provider: 02/03/21 20:06 Source: patient, RN notes reviewed and old records reviewed Mode of arrival: ambulatory Limitations: no limitations History of Present Illness Maximum Pain Intensity: 8 This patient is a 55-year-old male who comes in after having nausea and vomiting. He has a history of gastroparesis and a gastric pacemaker which she says is not working properly. He was admitted last week and discharged last for he says the same thing. He is scheduled to [place] next week to have his gastric pacemaker adjusted. He has had a temperature up to 101 at times he says. No cough or chest pain but he was short of breath but took his albuterol and that now he feels better. His abdomen hurts on the left side he says he has a known rib lesion there. No back pain. He feels diffusely weak but nothing focal. He is a diabetic. He said no recent seizures. He has had the Covid vaccine. Home Medications Medication Instructions Recorded Confirmed Type albuterol sulfate 90 mcg/actuation 2 puff INHALATION Q4H PRN 05/05/18 02/03/21 History aerosol inhaler (Ventolin HFA) epinephrine 0.3 mg/0.3 mL 0.3 mg IM Q3H PRN 05/05/18 02/03/21 History injection, auto-injector (EpiPen) insulin glargine 100 unit/mL (3 7 unit SUBCUT HS 05/05/18 02/03/21 History mL) subcutaneous pen (Basaglar KwikPen U-100 Insulin) insulin lispro 100 unit/mL 1 sliding scale dose SUBCUT UD 05/05/18 02/03/21 History subcutaneous cartridge (Humalog U-100 Insulin) multivitamin 1 tab PO QAM 05/05/18 02/03/21 History pantoprazole 40 mg tablet,delayed 40 mg PO QAM 05/05/18 02/03/21 History release (Protonix) clonidine 0.2 mg/24 hr weekly 1 patch TRANSDERMAL WK 01/23/20 02/03/21 History transdermal patch (Midytimj-MLB-4) escitalopram oxalate 10 mg tablet 10 mg PO QAM 01/24/20 02/03/21 History (Lexapro) fluticasone 250 mcg-salmeterol 50 1 inh INHALATION BID 01/24/20 02/03/21 History mcg/dose blistr powdr for inhalation (Wixela Inhub) amlodipine 5 mg tablet (Norvasc) 5 mg PO QAM #30 tab 01/29/20 02/03/21 Rx levetiracetam 750 mg tablet 750 mg PO BID 30 Days #60 tab 01/29/20 02/03/21 Rx (Keppra) cyclobenzaprine 5 mg tablet 5 mg PO TID PRN 12/20/20 02/03/21 History ondansetron 8 mg disintegrating 8 mg PO Q8H PRN 12/20/20 02/03/21 History tablet morphine 30 mg tablet,extended 30 mg PO Q12H #10 tab 12/29/20 02/03/21 Rx release (MS Contin) L.acidop,casei,lactis,rham-B.lact,jose 1 cap PO BID 01/22/21 02/03/21 History 625 mg (10 billion cell) capsule (Advanced Probiotic) gabapentin 100 mg capsule 100 mg PO TID 01/22/21 02/03/21 History (Neurontin) magnesium oxide 400 mg (241.3 mg 400 mg PO BID 01/22/21 02/03/21 History magnesium) tablet (MagOx) metoclopramide HCl 10 mg tablet 10 mg PO ACHS 01/22/21 02/03/21 History (Reglan) oxycodone 5 mg tablet (Roxicodone) 5 mg PO Q4H PRN 01/22/21 02/03/21 History sucralfate 1 gram tablet (Carafate) 1 g PO QID 01/22/21 02/03/21 History Allergies Allergy/AdvReac Type Severity Reaction Status Date / Time bee venom protein (honey bee) Allergy Mild SWELLING Verified 02/03/21 20:58 AT SITE, SOB Penicillins Allergy Unknown "SINCE Verified 02/03/21 20:58 "-Amoxicillin cat dander Allergy Unknown Verified 02/03/21 20:58 Past Med/Surg History Medical History Acute dyspnea Acute hyponatremia Acute renal insufficiency IVAN (acute kidney injury) Anemia Chest pain No current chest pain...related to reflux per patient Chronic pain COPD (chronic obstructive pulmonary disease) Diabetes mellitus type 2, uncontrolled Diabetic autonomic neuropathy Diabetic peripheral neuropathy Discharge planning issues DVT prophylaxis Elevated d-dimer Gastroparesis "s/p gastric stimulator" Hypertension Hypomagnesemia Intractable nausea and vomiting 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 One 1 mm polyp in the ascending colon resected. One benign appearing 1 mm polyp in the rectum resected. Internal hemorrhoids; Dr. Demarco" H/O esophagogastroduodenoscopy "01/26/2015- [place] Grade B reflux esophagitis, gastritis; Dr. 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 Beliefs That Will Affect Care: Gnosticist Gnosticist Beliefs: Baptist marital status: Legally Current Living Situation: Alone How many Children do You have: 5 Feels Safe at Home: Yes Assistive Devices: Walker Review of Systems A total of 10 systems reviewed and were otherwise negative Physical Exam Vital Signs Vital Signs - 24 hr 02/03/21 17:15 02/03/21 20:54 02/03/21 21:00 Temperature 36.7 C Temperature Source Temporal Artery Scan Pulse Rate 89 81 Pulse Rate [Apical] 82 Respiratory Rate 20 20 Respiratory Effort / Characteristics Non-Labored Spontaneous Respiratory Depth Normal Respiratory Pattern Regular Blood Pressure 147/97 H Blood Pressure [Right Arm] 236/134 H Blood Pressure Mean 113 Blood Pressure Mean [Right Arm] 168 Pulse Oximetry 100 96 96 Oxygen Delivery Method Room Air Room Air Room Air Sepsis Recent Fever Within 48 Hours No Sepsis New/Unexplained Change in Mental Status No Sepsis Action Taken by Nursing No Action Required 02/03/21 21:31 02/03/21 22:00 02/04/21 00:00 Temperature Temperature Source Pulse Rate Pulse Rate [Apical] 72 85 Respiratory Rate 20 Respiratory Effort / Characteristics Non-Labored Spontaneous Respiratory Depth Normal Respiratory Pattern Blood Pressure Blood Pressure [Right Arm] 197/112 H 198/108 H 167/94 H Blood Pressure Mean Blood Pressure Mean [Right Arm] 140 138 118 Pulse Oximetry 99 Oxygen Delivery Method Room Air Sepsis Recent Fever Within 48 Hours Sepsis New/Unexplained Change in Mental Status Sepsis Action Taken by Nursing General: Well developed well nourished chronically ill-appearing middle-age male who is complaining of nausea but in no respiratory acute distress, breathing comfortably on room air. Normal speech HEENT: Normal cephalic atraumatic. Pupils are equal round and reactive to light. Extraocular movements are intact. Oropharynx is pink with moist mucous membranes. No swelling of the mouth lips or tongue. Neck: Supple with a midline trachea. No meningeal signs or stiffness, no JVD or bruits. No Stridor. Chest: Clear to auscultation bilaterally. No wheezes or rhonchi. No increased work of breathing. Heart: Regular rate and rhythm without murmurs or gallops. Abdomen: Soft mildly tender on the left side., nondistended without rebound guarding or rigidity. Extremities: No cyanosis clubbing or edema. No calf tenderness or assymetry Spine/Back. Non tender to palpation. No CVA tenderness Skin: Good turgor without rashes. Neurologic exam: Cranial nerves two through 12 are intact. Motor and sensation are intact and symmetrical throughout. Course Administered Medications Magnesium Sulfate/Dextrose (Magnesium Sulfate / D5w) 1 gm in 100 mls @ 50 mls/hr IV NOW STA Stop: 02/04/21 01:14 Last Admin: 02/03/21 23:43 Dose: 50 mls/hr Documented by: [id number] Discontinued Medications Hydralazine HCl (Hydralazine Hcl 20 Mg/Ml Vial) 10 mg IV NOW STA Stop: 02/03/21 21:43 Last Admin: 02/03/21 21:45 Dose: 10 mg Documented by: [id number] Sodium Chloride (Nss 1000ml) 1,000 mls @ 999 mls/hr IV .Q1H1M ONE Stop: 02/03/21 21:15 Last Infusion: 02/03/21 21:57 Dose: 0 mls/hr Documented by: [id number] Admin: 02/03/21 20:55 Dose: 999 mls/hr Documented by: [id number] Insulin Glargine (Insulin Glargine Solostar 100 Units/Ml 3 Ml Pen) 5 units SC NOW STA Stop: 02/03/21 22:21 Last Admin: 02/03/21 23:42 Dose: 5 units Documented by: [id number] Cosigned by: [id number] Metoclopramide HCl (Metoclopramide Hcl Inj 5 Mg/Ml 2 Ml Vial) 10 mg IV NOW STA Stop: 02/03/21 22:28 Last Admin: 02/03/21 22:41 Dose: 10 mg Documented by: [id number] Morphine Sulfate (Morphine Sulfate Cr 15 Mg Tabcr) 30 mg PO NOW STA Stop: 02/03/21 22:21 Last Admin: 02/03/21 23:42 Dose: 30 mg Documented by: [id number] Ondansetron HCl (Ondansetron Inj 2 Mg/Ml 2 Ml Vial) 4 mg IV NOW STA Stop: 02/03/21 20:16 Last Admin: 02/03/21 20:55 Dose: 4 mg Documented by: [id number] Ondansetron HCl (Ondansetron Inj 2 Mg/Ml 2 Ml Vial) 4 mg IV NOW STA Stop: 02/03/21 21:36 Last Admin: 02/03/21 21:38 Dose: 4 mg Documented by: [id number] Medical Decision Making Differential Diagnosis Gastroparesis, dehydration, cardiac disease, infection, Covid, electrolyte or metabolic abnormality, toxicologic Medical Records Attestation: I reviewed the patient's medical records. Home Medications Current Medication List: was personally reviewed by me Laboratory Data Attestation: I reviewed the patient's lab results. Result diagrams: 02/03/21 19:44 02/03/21 22:18 Lab Results 02/03/21 02/03/21 02/03/21 Range/Units 19:44 19:44 19:44 WBC 5.22 (4.8-10.8) K/uL RBC 3.78 L (4.7-6.1) M/uL Hgb 10.9 L (14.0-18.0) g/dL Hct 32.1 L (42-52) % MCV 84.9 (80-100) fL MCH 28.8 (25-34) pg MCHC 34.0 (32-36) g/dL RDW Std Deviation 43.6 (36.4-46.3) fL RDW Coeff of Rik 14.0 (11.5-14.5) % Plt Count 200 (130-400) K/uL MPV 10.7 H (7.4-10.4) fL Immature Gran % (Auto) 0.2 % Neut % (Auto) 62.3 % Lymph % (Auto) 26.4 % Vance % (Auto) 8.6 % Eos % (Auto) 1.9 % Baso % (Auto) 0.6 % Neut # (Auto) 3.25 (1.4-6.5) K/uL Lymph # (Auto) 1.38 (1.2-3.4) K/uL Vance # (Auto) 0.45 (0.11-0.59) K/uL Eos # (Auto) 0.10 (0-0.5) K/uL Baso # (Auto) 0.03 (0-0.2) K/uL Immature Gran # (Auto) 0.01 (0.00-0.02) K/uL Sodium 131 L (136-145) mmol/L Potassium (3.5-5.1) mmol/L Chloride 103 (98-107) mmol/L Carbon Dioxide 19 L (21-32) mmol/L Anion Gap 9.0 (3-11) BUN 33 H (7-18) mg/dl Creatinine 3.04 H (0.6-1.4) mg/dl Est Cr Clr Drug Dosing 24.7 ml/min Est GFR ( Amer) 25.5 ml/min Est GFR (Non-Af Amer) 22.0 ml/min BUN/Creatinine Ratio 11.0 (10-20) Glucose 286 H (70-99) mg/dl Calcium 8.5 (8.5-10.1) mg/dl Magnesium Cancelled Total Bilirubin 0.4 (0.2-1) mg/dl AST (15-37) U/L ALT 53 (12-78) U/L Alkaline Phosphatase 180 H (45-117) U/L Troponin I < 0.015 Cancelled (0-0.045) ng/ml Total Protein 8.1 (6.4-8.2) gm/dl Albumin 2.8 L (3.4-5.0) gm/dl Globulin 5.3 H (2.5-4.0) gm/dl Albumin/Globulin Ratio 0.5 L (0.9-2) Lipase 45 L (73-393) U/L TSH Cancelled COVID-19 Eval Order SARS-CoV-2 (PCR) (Negative) 02/03/21 02/03/21 02/03/21 Range/Units 20:32 20:32 22:18 WBC (4.8-10.8) K/uL RBC (4.7-6.1) M/uL Hgb (14.0-18.0) g/dL Hct (42-52) % MCV (80-100) fL MCH (25-34) pg MCHC (32-36) g/dL RDW Std Deviation (36.4-46.3) fL RDW Coeff of Rik (11.5-14.5) % Plt Count (130-400) K/uL MPV (7.4-10.4) fL Immature Gran % (Auto) % Neut % (Auto) % Lymph % (Auto) % Vance % (Auto) % Eos % (Auto) % Baso % (Auto) % Neut # (Auto) (1.4-6.5) K/uL Lymph # (Auto) (1.2-3.4) K/uL Vance # (Auto) (0.11-0.59) K/uL Eos # (Auto) (0-0.5) K/uL Baso # (Auto) (0-0.2) K/uL Immature Gran # (Auto) (0.00-0.02) K/uL Sodium (136-145) mmol/L Potassium 4.5 (3.5-5.1) mmol/L Chloride (98-107) mmol/L Carbon Dioxide (21-32) mmol/L Anion Gap (3-11) BUN (7-18) mg/dl Creatinine (0.6-1.4) mg/dl Est Cr Clr Drug Dosing ml/min Est GFR ( Amer) ml/min Est GFR (Non-Af Amer) ml/min BUN/Creatinine Ratio (10-20) Glucose (70-99) mg/dl Calcium (8.5-10.1) mg/dl Magnesium 1.7 L Total Bilirubin (0.2-1) mg/dl AST (15-37) U/L ALT (12-78) U/L Alkaline Phosphatase (45-117) U/L Troponin I (0-0.045) ng/ml Total Protein (6.4-8.2) gm/dl Albumin (3.4-5.0) gm/dl Globulin (2.5-4.0) gm/dl Albumin/Globulin Ratio (0.9-2) Lipase (73-393) U/L TSH 0.744 COVID-19 Eval Order Covid19 at [facility] SARS-CoV-2 (PCR) NEGATIVE (Negative) Imaging Data Attestation: I personally reviewed and interpreted this imaging study as follows: My Impression: Chest x-rayno acute infiltrate, failure, pneumothorax seen Radiologist's Impression: Chest X-Ray 02/03/21 20:21 XR chest 1V portable HISTORY: 55 years-old Male sob acute shortness of breath COMPARISON: 01/22/2021 TECHNIQUE: Portable AP view of the chest FINDINGS: Cardiac mediastinal and hilar silhouettes are within normal limits. No pneumothorax, large pleural effusion, airspace consolidation or overt pulmonary edema. Unchanged blunting of the left costophrenic angle. IMPRESSION: No acute process. ACT 112: Negative or not required by law. The above report was generated using voice recognition software. It may contain grammatical, syntax or spelling errors. Electronically signed by: Oumar Metzger M.D. 02/03/2021 8:44 PM ECG Data Attestation: I personally reviewed and interpreted this ECG as follows: Indication: + vomiting Rate (beats per minute): 86 Rhythm: + normal sinus ECG Intervals/blocks: + Normal QRS, + Normal QT and + Normal TX ECG [place]: + Normal ECG ST segments: + Normal ST segments ECG Findings: + Poor R wave progression Comparison ECG Date: from (01/22/21) Change: no significant change MDM Narrative This patient comes in as described above. He was placed in room A3. He is here for treatment and evaluation of nausea and vomiting he has known gastroparesis and says this feels the same. IV access was established and was hydrated with 1 L IV normal saline bolus and given Zofran 4 mg IV. EKG, chest x-ray, multiple blood testing was obtained. He was reassessed frequently. EKG does not suggest ischemia and troponin is negative he has no signal electrolyte or metabolic abnormalities. Chest x-ray is unremarkable. He was given additional Zofran 4 m g IV. He does not feel well and does not feel up to going home he gets gastroparesis frequently. I have consulted Dr. Spencer to see him in ER for likely admission/observation. Covid testing was negative. 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 Premature dictation patient had to be in normal sinus rhythm with a rate of 85 Impression & Plan Abdominal pain, Seizure disorder, Nausea & vomiting, Gastroparesis, Lab test negative for COVID-19 virus Discharge Plan Visit Data Chief Complaint: Abdominal Pain Stated Complaint: ABDOMINAL PAIN, N/V ED Provider: Jeff iFsher Discharge Problem: Abdominal pain, Seizure disorder, Nausea & vomiting, Gastroparesis, Lab test negative for COVID-19 virus Forms Stand Alone Forms: My [facility] Prescriptions Prescriptions: No Action clonidine [Uvwgnmrj-HRN-0] 0.2 mg/24 hr patch weekly 1 patch transdermal WK RF: 0 fluticasone propion-salmeterol [Wixela Inhub] 250-50 mcg/dose Blister With Device 1 inh INHALATION BID RF: 0 escitalopram oxalate [Lexapro] 10 mg Tablet 10 mg PO QAM RF: 0 amlodipine [Norvasc] 5 mg Tablet 5 mg PO QAM Qty: 30 RF: 0 levetiracetam [Keppra] 750 mg tablet 750 mg PO BID 30 Days Qty: 60 RF: 1 multivitamin Tablet 1 tab PO QAM RF: 0 pantoprazole [Protonix] 40 mg tablet,delayed release (DR/EC) 40 mg PO QAM RF: 0 epinephrine [EpiPen] 0.3 mg/0.3 mL Auto-Injector 0.3 mg IM Q3H PRN (Reason: Allergic Reaction) RF: 0 albuterol sulfate [Ventolin HFA] 90 mcg/actuation Hfa Aerosol Inhaler 2 puff INHALATION Q4H PRN (Reason: Shortness Of Breath) RF: 0 Humalog U-100 Insulin 100 unit/mL Cartridge 1 sliding scale dose SUBCUT UD RF: 0 Basaglar KwikPen U-100 Insulin 100 unit/mL (3 mL) Insulin Pen 7 unit SUBCUT HS RF: 0 ondansetron 8 mg Tablet,Disintegrating 8 mg PO Q8H PRN (Reason: Nausea) RF: 0 cyclobenzaprine 5 mg Tablet 5 mg PO TID PRN (Reason: Muscle Spasm) RF: 0 morphine [MS Contin] 30 mg tablet extended release 30 mg PO Q12H Qty: 10 RF: 0 sucralfate [Carafate] 1 gram tablet 1 g PO QID RF: 0 magnesium oxide [MagOx] 400 mg (241.3 mg magnesium) tablet 400 mg PO BID RF: 0 gabapentin [Neurontin] 100 mg capsule 100 mg PO TID RF: 0 metoclopramide HCl [Reglan] 10 mg tablet 10 mg PO ACHS RF: 0 oxycodone [Roxicodone] 5 mg tablet 5 mg PO Q4H PRN (Reason: severe pain) RF: 0 Advanced Probiotic 625 mg (10 billion cell) capsule 1 cap PO BID RF: 0 Referrals Referrals: Juan Lamb MD [Primary Care Provider] - Discharge Problem: Abdominal pain Qualifiers: Abdominal location: generalized Qualified Code(s): R10.84 - Generalized abdominal pain Nausea & vomiting Qualifiers: Vomiting type: unspecified Vomiting Intractability: non-intractable Qualified Code(s): R11.2 - Nausea with vomiting, unspecified
[2021-02-03 20:30] LABS: Alanine Aminotransferase 53 U/L (12-78); Albumin Globulin Ratio 0.5 (0.9-2); Albumin Level 2.8 gm/dl (3.4-5.0); Alkaline Phosphatase 180 U/L (45-117); Bilirubin,Total 0.4 mg/dl (0.2-1); Blood Urea Nitrogen 33 mg/dl (7-18); Calcium 8.5 mg/dl (8.5-10.1); Carbon Dioxide 19 mmol/L (21-32); Chloride 103 mmol/L (98-107); Creatinine Clr Calc Pharmacy 24.7 ml/min; Est GFR (African American) 25.5 ml/min; Globulin 5.3 gm/dl (2.5-4.0); Glucose 286 mg/dl (70-99); Lipase 45 U/L (73-393); Sodium 131 mmol/L (136-145); Total Protein 8.1 gm/dl (6.4-8.2)
--- NOTE | 2021-02-03 20:45 | XRay Report ---
XR chest 1V portable HISTORY: 55 years-old Male sob acute shortness of breath COMPARISON: 01/22/2021 TECHNIQUE: Portable AP view of the chest FINDINGS: Cardiac mediastinal and hilar silhouettes are within normal limits. No pneumothorax, large pleural ef fusion, airspace consolidation or overt pulmonary edema. Unchanged blunting of the left costophrenic angle. IMPRESSION: No acute process. ACT 112: Negative or not required by law. The above report was generated using voice recognition software. It may contain grammatical, syntax o r spelling errors. Electronically signed by: Oumar Metzger M.D. 02/03/2021 8:44 PM
[2021-02-03 20:59] LABS: Troponin I < 0.015 ng/ml (0-0.045)
[2021-02-03] MEDS ORDERED: hydrALAZINE HCL 20 MG/ML VIAL IV STA (21:42)
[2021-02-03] MEDS ORDERED: MoRPHine SULFATE CR 15 MG TABCR PO STA (22:20)
[2021-02-03] MEDS ORDERED: INSULIN GLARGINE SOLOSTAR 100 UNITS/ML 3 ML PEN SC STA (22:20)
[2021-02-03] MEDS ORDERED: METOCLOPRAMIDE HCL INJ 5 MG/ML 2 ML VIAL IV STA (22:27)
--- NOTE | 2021-02-03 22:32 | History & Physical Report ---
Date of Service February 03, 2021 Assessment & Plan (1) Hypertensive crisis: Plan: Secondary to abdominal pain, nausea, emesis symptoms History gastroparesis status post gastric pacemaker Possible opioid withdrawal, history chronic pain on narcotics ARF on CRI secondary to illness DM1, suboptimal control as of recent hemoglobin A1c of 11.4 last December 2020 NSCLC stage III, status post surgery, incomplete chemotherapy secondary to intolerance Seizure disorder, stable on maintenance AED tx chronic anemia, hemoglobin better than baseline likely secondary to hemoconcentration Past tobacco abuse OBS Med telemetry IV hydralazine 1 dose now Facilitate home BP meds Judicious narcotic use, suspect possible misuse Baseline UA, monitor creatinine response to IV fluids Basal insulin adjusted for n.p.o. status for now, ISS BG goal 110-140 DVT prophylaxis. Heparin subcu Full code Text document was generated using [employer] voice recognition software. It may contain grammatical or spelling errors. Kindly contact undersigned for clarification of any documentation item in question. History of Present Illness Chief Complaint: Worsening abdominal pain, nausea, emesis Primary Care Provider: Juan Lamb MD History obtained from patient and records. Medical history significant for COPD, NSCLC stage III, status post surgery, incomplete chemotherapy secondary to intolerance, IBD, gastroparesis status post gastric pacemaker, chronic pain on narcotics, HTN, DM1, DM neuropathy, past tobacco abuse, CRI (baseline creatinine 2), chronic anemia (baseline hemoglobin 9), seizure disorder as per records, hx neurogenic bladder as per records. 3 admissions at [facility] since December 2020. Last [facility] confinement from January 22-2020 for abdominal pain, nausea vomiting attributed to gastroparesis. Patient instructed to follow-up with gastric pacemaker position at [facility] as per records. Persistent abdominal pain, nausea, emesis symptoms since leaving the hospital. No chest pain. No unusual shortness of breath. Achy headache symptoms. Patient also complaining of fever, chills. Patient missed appointment with gastroparesis physician because specialist was unavailable as per patient. Patient consulted ER for worsening symptoms. Medical History as above Surgical History : Knee surgery, thorascopy, lymphadenectomy, lung lobectomy, tonsillectomy/adenoidectomy Family History : Lung cancer, diabetes, renal cell carcinoma Personal/Social history : Past tobacco abuse, no EtOH intake, disabled Allergies Allergy/AdvReac Type Severity Reaction Status Date / Time bee venom protein (honey bee) Allergy Mild SWELLING Verified 02/03/21 20:58 AT SITE, SOB Penicillins Allergy Unknown "SINCE Verified 02/03/21 20:58 "-Amoxicillin cat dander Allergy Unknown Verified 02/03/21 20:58 Home Medications Medication Instructions Recorded Confirmed Type albuterol sulfate 90 mcg/actuation 2 puff INHALATION Q4H PRN 05/05/18 02/03/21 History aerosol inhaler (Ventolin HFA) epinephrine 0.3 mg/0.3 mL 0.3 mg IM Q3H PRN 05/05/18 02/03/21 History injection, auto-injector (EpiPen) insulin glargine 100 unit/mL (3 7 unit SUBCUT HS 05/05/18 02/03/21 History mL) subcutaneous pen (Basaglar KwikPen U-100 Insulin) insulin lispro 100 unit/mL 1 sliding scale dose SUBCUT UD 05/05/18 02/03/21 History subcutaneous cartridge (Humalog U-100 Insulin) multivitamin 1 tab PO QAM 05/05/18 02/03/21 History pantoprazole 40 mg tablet,delayed 40 mg PO QAM 05/05/18 02/03/21 History release (Protonix) clonidine 0.2 mg/24 hr weekly 1 patch TRANSDERMAL WK 01/23/20 02/03/21 History transdermal patch (Mkhjzgif-JCI-4) escitalopram oxalate 10 mg tablet 10 mg PO QAM 01/24/20 02/03/21 History (Lexapro) fluticasone 250 mcg-salmeterol 50 1 inh INHALATION BID 01/24/20 02/03/21 History mcg/dose blistr powdr for inhalation (Wixela Inhub) amlodipine 5 mg tablet (Norvasc) 5 mg PO QAM #30 tab 01/29/20 02/03/21 Rx levetiracetam 750 mg tablet 750 mg PO BID 30 Days #60 tab 01/29/20 02/03/21 Rx (Keppra) cyclobenzaprine 5 mg tablet 5 mg PO TID PRN 12/20/20 02/03/21 History ondansetron 8 mg disintegrating 8 mg PO Q8H PRN 12/20/20 02/03/21 History tablet morphine 30 mg tablet,extended 30 mg PO Q12H #10 tab 12/29/20 02/03/21 Rx release (MS Contin) L.acidop,casei,lactis,rham-B.lact,jose 1 cap PO BID 01/22/21 02/03/21 History 625 mg (10 billion cell) capsule (Advanced Probiotic) gabapentin 100 mg capsule 100 mg PO TID 01/22/21 02/03/21 History (Neurontin) magnesium oxide 400 mg (241.3 mg 400 mg PO BID 01/22/21 02/03/21 History magnesium) tablet (MagOx) metoclopramide HCl 10 mg tablet 10 mg PO ACHS 01/22/21 02/03/21 History (Reglan) oxycodone 5 mg tablet (Roxicodone) 5 mg PO Q4H PRN 01/22/21 02/03/21 History sucralfate 1 gram tablet (Carafate) 1 g PO QID 01/22/21 02/03/21 History Past Med/Surg History Medical History Acute dyspnea Acute hyponatremia Acute renal insufficiency IVAN (acute kidney injury) Anemia Chest pain No current chest pain...related to reflux per patient Chronic pain COPD (chronic obstructive pulmonary disease) Diabetes mellitus type 2, uncontrolled Diabetic autonomic neuropathy Diabetic peripheral neuropathy Discharge planning issues DVT prophylaxis Elevated d-dimer Gastroparesis "s/p gastric stimulator" Hypertension Hypomagnesemia Intractable nausea and vomiting 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 One 1 mm polyp in the ascending colon resected. One benign appearing 1 mm polyp in the rectum resected. Internal hemorrhoids; Dr. Demarco" H/O esophagogastroduodenoscopy "01/26/2015- [place] Grade B reflux esophagitis, gastritis; Dr. Major" History of cholecystectomy History of tonsillectomy and adenoidectomy Hx of total knee arthroplasty S/P lobectomy of lung "left upper lobectomy for adenoCa" On 08/05/16 16:30 Edie Mcfarland wrote [place] [facility] [place] Status post insertion of intrathecal pump explanted Family History Other Family history non-contributory Social History Smoking Status: Never smoker Tobacco Type: Cigarettes Second Hand Exposure: No; Hx Alcohol Use: No Hx Substance Use: No Preferred Language: Belarusian Communication Ability: Effective Breading Machine Tender Required: No Beliefs That Will Affect Care: Sabianist Sabianist Beliefs: Spiritism marital status: Legally Current Living Situation: Alone How many Children do You have: 5 Feels Safe at Home: Yes Assistive Devices: Walker Review of Systems Review of Systems: As per HPI, all 10 systems reviewed, all other ROS negative Physical Exam Physical Exam: GENERAL: uncomfortable, no respiratory distress SKIN: Pallor, warm HEENT: Partial alopecia, pale palpebral conjunctivae, no ptosis, dry buccal mucosa NECK : Supple, no tenderness CHEST : Decreased breath sounds, no tenderness HEART : RRR, no obvious murmurs ABDOMEN: Some distention, central abdominal tenderness EXTREMITIES : No LE swelling/tenderness, no other conspicuous deformities noted NEUROLOGIC : Coherent, no facial asymmetry, no other gross focality Results & Data Results & Data ([facility]) Vital Signs (Past 12 Hours) Vital Signs Temp Pulse Pulse Resp BP BP Pulse Ox 02/03/21 22:00 198/108 H 02/03/21 21:31 72 197/112 H 02/03/21 21:00 81 96 02/03/21 20:54 82 20 236/134 H 96 02/03/21 17:15 36.7 C 89 20 147/97 H 100 Laboratory Results Laboratory Results WBC 5.22 K/uL (4.8-10.8) 02/03/21 19:44 RBC 3.78 M/uL (4.7-6.1) L 02/03/21 19:44 Hgb 10.9 g/dL (14.0-18.0) L 02/03/21 19:44 Hct 32.1 % (42-52) L 02/03/21 19:44 MCV 84.9 fL (80-100) 02/03/21 19:44 MCH 28.8 pg (25-34) 02/03/21 19:44 MCHC 34.0 g/dL (32-36) 02/03/21 19:44 RDW Std Deviation 43.6 fL (36.4-46.3) 02/03/21 19:44 RDW Coeff of Rik 14.0 % (11.5-14.5) 02/03/21 19:44 Plt Count 200 K/uL (130-400) 02/03/21 19:44 MPV 10.7 fL (7.4-10.4) H 02/03/21 19:44 Immature Gran % (Auto) 0.2 % 02/03/21 19:44 Neut % (Auto) 62.3 % 02/03/21 19:44 Lymph % (Auto) 26.4 % 02/03/21 19:44 [place] % (Auto) 8.6 % 02/03/21 19:44 Eos % (Auto) 1.9 % 02/03/21 19:44 Baso % (Auto) 0.6 % 02/03/21 19:44 Neut # (Auto) 3.25 K/uL (1.4-6.5) 02/03/21 19:44 Lymph # (Auto) 1.38 K/uL (1.2-3.4) 02/03/21 19:44 [place] # (Auto) 0.45 K/uL (0.11-0.59) 02/03/21 19:44 Eos # (Auto) 0.10 K/uL (0-0.5) 02/03/21 19:44 Baso # (Auto) 0.03 K/uL (0-0.2) 02/03/21 19:44 Immature Gran # (Auto) 0.01 K/uL (0.00-0.02) 02/03/21 19:44 Sodium 131 mmol/L (136-145) L 02/03/21 19:44 Potassium mmol/L (3.5-5.1) 02/03/21 19:44 Chloride 103 mmol/L (98-107) 02/03/21 19:44 Carbon Dioxide 19 mmol/L (21-32) L 02/03/21 19:44 Anion Gap 9.0 (3-11) 02/03/21 19:44 BUN 33 mg/dl (7-18) H 02/03/21 19:44 Creatinine 3.04 mg/dl (0.6-1.4) H 02/03/21 19:44 Est Cr Clr Drug Dosing 24.7 ml/min 02/03/21 19:44 Est GFR ( Amer) 25.5 ml/min 02/03/21 19:44 Est GFR (Non-Af Amer) 22.0 ml/min 02/03/21 19:44 BUN/Creatinine Ratio 11.0 (10-20) 02/03/21 19:44 Glucose 286 mg/dl (70-99) H 02/03/21 19:44 Calcium 8.5 mg/dl (8.5-10.1) 02/03/21 19:44 Magnesium Cancelled 02/03/21 19:44 Total Bilirubin 0.4 mg/dl (0.2-1) 02/03/21 19:44 AST U/L (15-37) 02/03/21 19:44 ALT 53 U/L (12-78) 02/03/21 19:44 Alkaline Phosphatase 180 U/L (45-117) H 02/03/21 19:44 Troponin I < 0.015 ng/ml (0-0.045) 02/03/21 19:44 Troponin I Cancelled 02/03/21 19:44 Total Protein 8.1 gm/dl (6.4-8.2) 02/03/21 19:44 Albumin 2.8 gm/dl (3.4-5.0) L 02/03/21 19:44 Globulin 5.3 gm/dl (2.5-4.0) H 02/03/21 19:44 Albumin/Globulin Ratio 0.5 (0.9-2) L 02/03/21 19:44 Lipase 45 U/L (73-393) L 02/03/21 19:44 TSH Cancelled 02/03/21 19:44 COVID-19 Eval Order Covid19 at [facility] 02/03/21 20:32 SARS-CoV-2 (PCR) NEGATIVE (Negative) 02/03/21 20:32 Impressions Chest X-Ray 02/03/21 20:21 XR chest 1V portable HISTORY: 55 years-old Male sob acute shortness of breath COMPARISON: 01/22/2021 TECHNIQUE: Portable AP view of the chest FINDINGS: Cardiac mediastinal and hilar silhouettes are within normal limits. No pn eumothorax, large pleural effusion, airspace consolidation or overt pulmonary edema. Unchanged blunting of the left costophrenic angle. IMPRESSION: No acute process. ACT 112: Negative or not required by law. The above report was generated using voice recognition software. It may contain grammatical, syntax or spelling errors. Electronically signed by: Oumar Metzger M.D. 02/03/2021 8:[address] head initial read: CT abdomen pelvis initial read: EKG as per my interpretation: Rate 85, NSR, normal axis, septal infarct, no ischemia
[2021-02-03 22:58] LABS: Magnesium 1.7 mg/dl (1.8-2.4); Thyroid Stimulating Hormone 0.744 uIu/ml (0.300-4.500)
[2021-02-03] MEDS ORDERED: MAGNESIUM SULFATE / D5W 1 GM/100 ML BAG IV STA (23:15)
[2021-02-03 23:58] LABS: Potassium 4.5 mmol/L (3.5-5.1)
--- NOTE | 2021-02-04 00:29 | History & Physical Report ---
Date of Service February 04, 2021 Assessment & Plan (1) Hypertensive crisis: Plan: Secondary to abdominal pain, nausea, emesis symptoms Ileus versus partial SBO on initial CT read History gastroparesis status post gastric pacemaker Possible opioid withdrawal, history chronic pain on narcotics ARF on CRI secondary to illness DM1, suboptimal control as of recent hemoglobin A1c of 11.4 last December 2020 NSCLC stage III, status post surgery, incomplete chemotherapy secondary to intolerance Seizure disorder, stable on maintenance AED tx chronic anemia, hemoglobin better than baseline likely secondary to hemoconcentration Past tobacco abuse OBS Med telemetry IV hydralazine 1 dose now Facilitate home BP meds Judicious narcotic use, suspect possible misuse Baseline UA, monitor creatinine response to IV fluids Follow official CT abdomen pelvis results N.p.o. until official CT abdomen pelvis read available Further management pending official CT read Basal insulin adjusted for n.p.o. status for now, ISS BG goal 110-140 DVT prophylaxis. Heparin subcu Full code Text document was generated using [employer] voice recognition software. It may contain grammatical or spelling errors. Kindly contact undersigned for clarification of any documentation item in question. History of Present Illness Chief Complaint: Abdominal pain, nausea, emesis Primary Care Provider: Juan Lamb MD History obtained from patient and records. Medical history significant for COPD, NSCLC stage III, status post surgery, incomplete chemotherapy secondary to intolerance, IBD, gastroparesis status post gastric pacemaker, chronic pain on narcotics, HTN, DM1, DM neuropathy, past tobacco abuse, CRI (baseline creatinine 2), chronic anemia (baseline hemoglobin 9), seizure disorder as per records, hx neurogenic bladder as per records. [address] [facility] since December 2020. Last [facility] confinement from January 22-2020 for abdominal pain, nausea vomiting attributed to gastroparesis. Patient instructed to follow-up with gastric pacemaker position at [facility] as per records. Persistent abdominal pain, nausea, emesis symptoms since leaving the hospital. No chest pain. No unusual shortness of breath. Achy headache symptoms. Patient also complaining of fever, chills. Patient missed appointment with miguel ángel roparesis physician because specialist was unavailable as per patient. Patient consulted ER for worsening symptoms. Medical History as above Surgical History : Knee surgery, thorascopy, lymphadenectomy, lung lobectomy, tonsillectomy/adenoidectomy Family History : Lung cancer, diabetes, renal cell carcinoma Personal/Social history : Past tobacco abuse, no EtOH intake, disabled Allergies Allergy/AdvReac Type Severity Reaction Status Date / Time bee venom protein (honey bee) Allergy Mild SWELLING Verified 02/03/21 20:58 AT SITE, SOB Penicillins Allergy Unknown "SINCE Verified 02/03/21 20:58 "-Amoxicillin cat dander Allergy Unknown Verified 02/03/21 20:58 Home Medications Medication Instructions Recorded Confirmed Type albuterol sulfate 90 mcg/actuation 2 puff INHALATION Q4H PRN 05/05/18 02/03/21 History aerosol inhaler (Ventolin HFA) epinephrine 0.3 mg/0.3 mL 0.3 mg IM Q3H PRN 05/05/18 02/03/21 History injection, auto-injector (EpiPen) insulin glargine 100 unit/mL (3 7 unit SUBCUT HS 05/05/18 02/03/21 History mL) subcutaneous pen (Basaglar KwikPen U-100 Insulin) insulin lispro 100 unit/mL 1 sliding scale dose SUBCUT UD 05/05/18 02/03/21 History subcutaneous cartridge (Humalog U-100 Insulin) multivitamin 1 tab PO QAM 05/05/18 02/03/21 History pantoprazole 40 mg tablet,delayed 40 mg PO QAM 05/05/18 02/03/21 History release (Protonix) clonidine 0.2 mg/24 hr weekly 1 patch TRANSDERMAL WK 01/23/20 02/03/21 History transdermal patch (Xxmpproa-LCD-7) escitalopram oxalate 10 mg tablet 10 mg PO QAM 01/24/20 02/03/21 History (Lexapro) fluticasone 250 mcg-salmeterol 50 1 inh INHALATION BID 01/24/20 02/03/21 History mcg/dose blistr powdr for inhalation (Wixela Inhub) amlodipine 5 mg tablet (Norvasc) 5 mg PO QAM #30 tab 01/29/20 02/03/21 Rx levetiracetam 750 mg tablet 750 mg PO BID 30 Days #60 tab 01/29/20 02/03/21 Rx (Keppra) cyclobenzaprine 5 mg tablet 5 mg PO TID PRN 12/20/20 02/03/21 History ondansetron 8 mg disintegrating 8 mg PO Q8H PRN 12/20/20 02/03/21 History tablet morphine 30 mg tablet,extended 30 mg PO Q12H #10 tab 12/29/20 02/03/21 Rx release (MS Contin) L.acidop,casei,lactis,rham-B.lact,jose 1 cap PO BID 01/22/21 02/03/21 History 625 mg (10 billion cell) capsule (Advanced Probiotic) gabapentin 100 mg capsule 100 mg PO TID 01/22/21 02/03/21 History (Neurontin) magnesium oxide 400 mg (241.3 mg 400 mg PO BID 01/22/21 02/03/21 History magnesium) tablet (MagOx) metoclopramide HCl 10 mg tablet 10 mg PO ACHS 01/22/21 02/03/21 History (Reglan) oxycodone 5 mg tablet (Roxicodone) 5 mg PO Q4H PRN 01/22/21 02/03/21 History sucralfate 1 gram tablet (Carafate) 1 g PO QID 01/22/21 02/03/21 History Past Med/Surg History Medical History Acute dyspnea Acute hyponatremia Acute renal insufficiency IVAN (acute kidney injury) Anemia Chest pain No current chest pain...related to reflux per patient Chronic pain COPD (chronic obstructive pulmonary disease) Diabetes mellitus type 2, uncontrolled Diabetic autonomic neuropathy Diabetic peripheral neuropathy Discharge planning issues DVT prophylaxis Elevated d-dimer Gastroparesis "s/p gastric stimulator" Hypertension Hypomagnesemia Intractable nausea and vomiting Lung cancer "dx 01/2016; adenoCa SHAWN; + hilar nodes; s/p left upper lobectomy + chemo" On 08/05/16 16:31 Edie Calerokaren wrote "dx 01/2016; s/p L side lobectomy; currently undergoing chemo" Nausea and vomiting Orthostatic hypotension Pneumonia Pneumonia Renal insufficiency Seizure disorder SOB (shortness of breath) Surgical History H/O colonoscopy " 04/22/2013- Mildly congested and erythematous mucosa in the ascending colon. One 1 mm polyp in the ascending colon resected. One benign appearing 1 mm polyp in the rectum resected. Internal hemorrhoids; Dr. Demarco" H/O esophagogastroduodenoscopy "01/26/2015- [place] Grade B reflux esophagitis, gastritis; Dr. Major" History of cholecystectomy History of tonsillectomy and adenoidectomy Hx of total knee arthroplasty S/P lobectomy of lung "left upper lobectomy for adenoCa" On 08/05/16 16:30 Edie Mcfarland wrote "L side @ [facility] [place] 05/25/16" Status post insertion of intrathecal pump explanted Family History Other Family history non-contributory Social History Smoking Status: Never smoker Tobacco Type: Cigarettes Second Hand Exposure: No; Hx Alcohol Use: No Hx Substance Use: No Preferred Language: Portuguese Communication Ability: Effective Reservoir Engineer Required: No Beliefs That Will Affect Care: Yarsanism Yarsanism Beliefs: Religion marital status: Legally Current Living Situation: Alone How many Children do You have: 5 Feels Safe at Home: Yes Assistive Devices: Walker Review of Systems Review of Systems: As per HPI, all 10 systems reviewed, all other ROS negative Physical Exam Physical Exam: GENERAL: uncomfortable, no respiratory distress SKIN: Pallor, warm HEENT: Partial alopecia, pale palpebral conjunctivae, no ptosis, dry buccal mucosa NECK : Supple, no tenderness CHEST : Decreased breath sounds, no tenderness HEART : RRR, no obvious murmurs ABDOMEN: Some distention, central abdominal tenderness EXTREMITIES : No LE swelling/tenderness, no other conspicuous deformities noted NEUROLOGIC : Coherent, no facial asymmetry, no other gross focality Results & Data Results & Data ([facility]) Vital Signs (Past 12 Hours) Vital Signs Temp Pulse Pulse Resp BP BP Pulse Ox 02/04/21 00:00 85 20 167/94 H 99 02/03/21 22:00 198/108 H 02/03/21 21:31 72 197/112 H 02/03/21 21:00 81 96 02/03/21 20:54 82 20 236/134 H 96 02/03/21 17:15 36.7 C 89 20 147/97 H 100 Laboratory Results Laboratory Results WBC 5.22 K/uL (4.8-10.8) 02/03/21 19:44 RBC 3.78 M/uL (4.7-6.1) L 02/03/21 19:44 Hgb 10.9 g/dL (14.0-18.0) L 02/03/21 19:44 Hct 32.1 % (42-52) L 02/03/21 19:44 MCV 84.9 fL (80-100) 02/03/21 19:44 MCH 28.8 pg (25-34) 02/03/21 19:44 MCHC 34.0 g/dL (32-36) 02/03/21 19:44 RDW Std Deviation 43.6 fL (36.4-46.3) 02/03/21 19:44 RDW Coeff of Rik 14.0 % (11.5-14.5) 02/03/21 19:44 Plt Count 200 K/uL (130-400) 02/03/21 19:44 MPV 10.7 fL (7.4-10.4) H 02/03/21 19:44 Immature Gran % (Auto) 0.2 % 02/03/21 19:44 Neut % (Auto) 62.3 % 02/03/21 19:44 Lymph % (Auto) 26.4 % 02/03/21 19:44 [place] % (Auto) 8.6 % 02/03/21 19:44 Eos % (Auto) 1.9 % 02/03/21 19:44 Baso % (Auto) 0.6 % 02/03/21 19:44 Neut # (Auto) 3.25 K/uL (1.4-6.5) 02/03/21 19:44 Lymph # (Auto) 1.38 K/uL (1.2-3.4) 02/03/21 19:44 [place] # (Auto) 0.45 K/uL (0.11-0.59) 02/03/21 19:44 Eos # (Auto) 0.10 K/uL (0-0.5) 02/03/21 19:44 Baso # (Auto) 0.03 K/uL (0-0.2) 02/03/21 19:44 Immature Gran # (Auto) 0.01 K/uL (0.00-0.02) 02/03/21 19:44 Sodium 131 mmol/L (136-145) L 02/03/21 19:44 Potassium 4.5 mmol/L (3.5-5.1) 02/03/21 22:18 Chloride 103 mmol/L (98-107) 02/03/21 19:44 Carbon Dioxide 19 mmol/L (21-32) L 02/03/21 19:44 Anion Gap 9.0 (3-11) 02/03/21 19:44 BUN 33 mg/dl (7-18) H 02/03/21 19:44 Creatinine 3.04 mg/dl (0.6-1.4) H 02/03/21 19:44 Est Cr Clr Drug Dosing 24.7 ml/min 02/03/21 19:44 Est GFR ( Amer) 25.5 ml/min 02/03/21 19:44 Est GFR (Non-Af Amer) 22.0 ml/min 02/03/21 19:44 BUN/Creatinine Ratio 11.0 (10-20) 02/03/21 19:44 Glucose 286 mg/dl (70-99) H 02/03/21 19:44 Calcium 8.5 mg/dl (8.5-10.1) 02/03/21 19:44 Magnesium 1.7 mg/dl (1.8-2.4) L 02/03/21 22:18 Total Bilirubin 0.4 mg/dl (0.2-1) 02/03/21 19:44 AST U/L (15-37) 02/03/21 19:44 ALT 53 U/L (12-78) 02/03/21 19:44 Alkaline Phosphatase 180 U/L (45-117) H 02/03/21 19:44 Troponin I < 0.015 ng/ml (0-0.045) 02/03/21 19:44 Troponin I Cancelled 02/03/21 19:44 Total Protein 8.1 gm/dl (6.4-8.2) 02/03/21 19:44 Albumin 2.8 gm/dl (3.4-5.0) L 02/03/21 19:44 Globulin 5.3 gm/dl (2.5-4.0) H 02/03/21 19:44 Albumin/Globulin Ratio 0.5 (0.9-2) L 02/03/21 19:44 Lipase 45 U/L (73-393) L 02/03/21 19:44 TSH 0.744 uIu/ml (0.300-4.500) 02/03/21 22:18 COVID-19 Eval Order Covid19 at [facility] 02/03/21 20:32 SARS-CoV-2 (PCR) NEGATIVE (Negative) 02/03/21 20:32 Impressions Chest X-Ray 02/03/21 20:21 XR chest 1V portable HISTORY: 55 years-old Male sob acute shortness of breath COMPARISON: 01/22/2021 TECHNIQUE: Portable AP view of the chest FINDINGS: Cardiac mediastinal and hilar silhouettes are within normal limits. No pneumothorax, large pleural effusion, airspace consolidation or overt pulmonary edema. Unchanged blunting of the left costophrenic angle. IMPRESSION: No acute process. ACT 112: Negative or not required by law. The above report was generated using voice recognition software. It may contain grammatical, syntax or spelling errors. Electronically signed by: Oumar Metzger M.D. 02/03/2021 8:[address] head initial read: No evidence of acute intracranial abnormalityor skull fracture. Partiallyvisualized paranasal sinuses and mastoid air cells are clear. CT abdomen pelvis initial read: Prior from01/22/2021 Fewmildlydilated small bowel loops in the left abdomen. Somewhat similar on p rior. Mayrepresent ileus/enteritis versus bowel obstruction. No free air, free fluid. No obstructing urinarytract calculus or hydronephrosis. Stable gastric pacer device. Cholecystectomy. Stable lytic left 9 rib lesion worrisome for metastasis. Adjacent pleural thickening. Mild basilar atelectasis. Moderate vascular calcifications. EKG as per my interpretation: Rate 85, NSR, normal axis, septal infarct, no ischemia
[2021-02-04] MEDS ORDERED: PROMETHAZINE HCL 12.5 MG in SODIUM CHLORIDE 0.9% 50 ML IV PRN (00:41)
[2021-02-04] MEDS ORDERED: INSULIN ASPART 100 UNITS/ML 3 ML PEN SC SCH (00:41)
[2021-02-04] MEDS ORDERED: DEXTROSE 50% 50 ML SYRINGE IV PRN (00:41)
[2021-02-04] MEDS ORDERED: SODIUM CHLORIDE 0.9% 1000ML 1,000 ML IV ONE (00:41)
[2021-02-04] MEDS ORDERED: ACETAMINOPHEN 325 MG TAB PO PRN (00:41)
[2021-02-04] MEDS ORDERED: CARBOHYDRATES FOR HYPOGLYCEMIA PO PRN (00:41)
[2021-02-04] MEDS ORDERED: GLUCAGON FOR INJ 1 MG VIAL SQ PRN (00:41)
[2021-02-04] MEDS ORDERED: GLUCOSE 10 TABS/TUBE PO PRN (00:41)
[2021-02-04] MEDS ORDERED: GLUCOSE 40% GEL 15 GM TUBE PO PRN (00:41)
[2021-02-04] MEDS: levETIRAcetam 250 MG TAB PO SCH ×3 (01:20→21:27)
[2021-02-04] MEDS: SODIUM CHLORIDE 0.9% 1000ML 1,000 ML IV SCH ×2 (04:49→18:13)
[2021-02-04] MEDS ORDERED: FLUARIX QUADRIVALENT 0.5 ML SYR IM ONE (05:07)
[2021-02-04] MEDS ORDERED: Nursing to Pharmacy Communication SCH ×2 (06:15→19:15)
[2021-02-04] MEDS: HEPARIN SOD 5,000 UNIT/0.5 ML VIAL SQ SCH ×3 (06:18→21:28)
[2021-02-04] MEDS: INSULIN ASPART 100 UNITS/ML 3 ML PEN SC SCH ×4 (06:29→21:22)
--- NOTE | 2021-02-04 08:07 | CT Scan Report ---
HEAD CT NONCONTRAST CT DOSE: HISTORY: Headache. TECHNIQUE: Multiaxial CT images of the head were performed without the use of intravenous contrast. A utomated exposure control was utilized for this study. A dose lowering technique was utilized adheri ng to the principles of ALARA. Comparison: Head CT 12/24/2020. Findings: The paranasal sinuses and mastoid air cells are clear. The calvarium and skull base are int act. The ventricles and sulci are within normal limits. There is no mass, hematoma, midline shift, or acute infarct. Impression: No acute intracranial abnormality. ACT 112: Negative or not required by law. Electronically signed by: Danilo Langley M.D. 02/04/2021 8:05 AM
[2021-02-04] MEDS: FLUTICASONE/VILANTEROL 100/25MCG 14 PUFFS/INHALER INH SCH (08:56)
[2021-02-04] MEDS: SUCRALFATE 1 GM TAB PO SCH ×4 (08:57→21:27)
[2021-02-04] MEDS: amLODIPine BESYLATE 5 MG TAB PO SCH (08:57)
[2021-02-04] MEDS: MULTIVITAMIN TAB PO SCH (08:57)
[2021-02-04] MEDS: ADVANCED PROBIOTIC 1250 MG CAPSULE PO SCH ×2 (08:58→13:26)
[2021-02-04] MEDS: METOCLOPRAMIDE HCL 10 MG TABLET PO SCH ×4 (08:58→21:27)
[2021-02-04] MEDS: CYCLOBENZAPRINE HCL 5 MG TAB PO PRN (08:58)
[2021-02-04] MEDS: ESCITALOPRAM OXALATE 10 MG TAB PO SCH (08:59)
[2021-02-04] MEDS: GABAPENTIN 100 MG CAP PO SCH ×3 (08:59→21:27)
[2021-02-04] MEDS ORDERED: PANTOprazole 40 MG TAB PO SCH (09:00)
[2021-02-04] MEDS ORDERED: INSULIN GLARGINE SOLOSTAR 100 UNITS/ML 3 ML PEN SQ SCH (09:00)
[2021-02-04] MEDS ORDERED: cloNIDine HCL 0.1 MG/24 HR TRANSDERM SYS TD SCH (09:00)
--- NOTE | 2021-02-04 09:15 | CT Scan Report ---
CT abd pelvis wo con CLINICAL INDICATION: Nausea, emesis, generalized abdominal pain. TECHNIQUE: Helical axial images of the abdomen and pelvis were obtained and displayed at 5 and 1 mm i ntervals. Automated dose lowering techniques and/or adjustment according to patient size were utilize d for this exam. This exam was performed without intravenous contrast. COMPARISON: None available at the time of this dictation. FINDINGS: Lower chest: No acute abnormality Liver: Unremarkable. No focal lesions are seen. Postsurgical changes are seen about the left lobe of the liver. Gallbladder and biliary tree: Patient is status post cholecystectomy. No intra- or extrahepatic bilia ry ductal dilation. Pancreas: Unremarkable, no focal lesions. Spleen: Unremarkable. Adrenals: Right myelolipoma is noted. Kidneys and ureters: Unremarkable. Bladder: Bladder is distended without focal abnormality. Reproductive organs: Prostatic calcifications are seen which may represent prior hemorrhage or granul omatous disease. Bowel: A hiatal hernia is seen. A few distended loops of small bowel are seen in the left upper quadr ant measuring up to 35 mm in diameter. No sharp transition point is noted. The colon is not decompres sed. Lymph nodes Retroperitoneal: Unremarkable. Mesenteric: Unremarkable. Pelvic: Unremarkable. Peritoneum: Normal Vessels: Atherosclerotic calcifications are seen. Abdominal wall: A battery-powered device is in the left lower quadrant soft tissues. Bones: Degenerative changes in the visualized spine. IMPRESSION: Multiple mildly dilated loops of small bowel predominantly in the left upper quadrant. These are favo red to represent focal ileus, enteritis, or possibly early partial bowel obstruction. No evidence of high-grade obstruction is seen. ACT 112: Negative or not required by law. Electronically signed by: Tan Muller M.D. 02/04/2021 9:13 AM
[2021-02-04 10:00] LABS: Basophils # (auto) 0.02 K/uL (0-0.2); Basophils % (auto) 0.5 %; Eosinophils # (auto) 0.18 K/uL (0-0.5); Eosinophils % (auto) 4.4 %; Hematocrit (blood only) 27.6 % (42-52); Hemoglobin 9.2 g/dL (14.0-18.0); Lymphocytes # (auto) 1.91 K/uL (1.2-3.4); Lymphocytes % (auto) 46.4 %; Mean Corpuscular Hgb Conc 33.3 g/dL (32-36); Mean Corpuscular Volume 87.1 fL (80-100); Mean Platelet Volume 10.3 fL (7.4-10.4); Monocytes # (auto) 0.42 K/uL (0.11-0.59); Monocytes % (auto) 10.2 %; Neutrophils # (auto) 1.59 K/uL (1.4-6.5); Neutrophils % (auto) 38.5 %; Platelet Count 208 K/uL (130-400); RDW Standard Deviation 44.3 fL (36.4-46.3); Red Blood Count 3.17 M/uL (4.7-6.1); White Blood Count 4.12 K/uL (4.8-10.8)
[2021-02-04] MEDS ORDERED: PHARMACY GLYCEMIC MGMT CONSULT PRN (10:00)
[2021-02-04 10:18] LABS: BUN Creatinine Ratio 11.3 (10-20); Creatinine Clr Calc Pharmacy 27.8 ml/min; Est GFR (Non-African American) 23.3 ml/min; Magnesium 1.8 mg/dl (1.8-2.4)
[2021-02-04] MEDS: MoRPHine SULFATE CR 15 MG TABCR PO SCH ×2 (10:21→21:26)
--- NOTE | 2021-02-04 11:02 | Pharmacy Report ---
Pharmacy Glycemic Short Note 2 - Date of Service February 04, 2021 - Glycemic Short BSG Results (Last 24 hours): 02/03/21 02/04/21 02/04/21 19:44 01:56 06:17 Glucose 286 H POC Glucose 237 H 99 02/04/21 09:41 Glucose 130 H POC Glucose OUTPATIENT ANTIDIABETIC REGIMEN: * Basaglar 7 units HS * Humalog sliding scale ASSESSMENT: * 55 year old male, admitted for abdominal pain, nausea, vomiting, known to pharmacy glycemic service from admission last month * NPO - hold basal until diet ordered, CF/CR as per last admission at this time, titrate to goal blood sugar PLAN FOR INPATIENT GLYCEMIC CONTROL: * Basal insulin * Lantus 7 units SQ HS IF diet ordered, otherwise HOLD * Bolus insulin * NovoLog per scale ACHS or Q6hrs while NPO * Goal Range: Low 110 mg/dL - High 140 mg/dL * Correction Factor: 55 mg/dL/unit * Nutritional / Prandial insulin per carb ratio of 1 unit per 18 grams CHO consumed PLAN FOR DISCHARGE: * to be determined
[2021-02-04] MEDS: CHECK CLONIDINE PATCH PLACEMENT SCH (16:30)
[2021-02-04] MEDS: LIDOCAINE 5% 1 PATCH TD SCH (17:07)
[2021-02-04] MEDS: PANTOprazole 40 MG in DEXTROSE 5% 100 ML IV SCH ×2 (17:57→21:26)
[2021-02-04] MEDS: INSULIN GLARGINE SOLOSTAR 100 UNITS/ML 3 ML PEN SQ SCH (21:22)
[2021-02-05 00:39] LABS: Appearance Urine Clear (Clear); Bacteria Urine Automated Negative (Negative); Bilirubin Urine Negative (Negative); Blood Urine Negative (Negative); Color Urine Yellow; Glucose Urine UA 3+ (Negative); Ketones Urine Negative (Negative); Leukocyte Esterase Urine Negative (Negative); Nitrite Urine Negative (Negative); Protein Urine 3+ (Negative); RBC Urine Automated 0-4 /hpf (0-4); Specific Gravity Urine 1.015 (1.000-1.030); Urobilinogen Urine Negative (Negative)
[2021-02-05 01:02] LABS: Amphetamines+Metham, Urine Neg (Neg); Barbiturates, Urine Neg (Neg); Benzodiazepine, Urine Neg (Neg); Cocaine, Urine Neg (Neg); MDMA (Ecstacy), Urine Neg (Neg); Methadone, Urine Neg (Neg); Opiate, Urine Pos (Neg); Phencyclidine, Urine Neg (Neg)
[2021-02-05] MEDS: CHECK CLONIDINE PATCH PLACEMENT SCH ×3 (01:13→15:14)
[2021-02-05] MEDS ORDERED: INSULIN ASPART 100 UNITS/ML 3 ML PEN SC SCH (02:00)
[2021-02-05] MEDS: PANTOprazole 40 MG in DEXTROSE 5% 100 ML IV SCH ×5 (02:06→22:38)
[2021-02-05] MEDS: SODIUM CHLORIDE 0.9% 1000ML 1,000 ML IV SCH ×2 (06:25→19:53)
[2021-02-05] MEDS: HEPARIN SOD 5,000 UNIT/0.5 ML VIAL SQ SCH ×3 (06:25→21:44)
[2021-02-05] MEDS ORDERED: NEOMYCIN/POLYMYX/BACITR OINT 15 GM TUBE EXT PRN (08:01)
[2021-02-05] MEDS: FLUTICASONE/VILANTEROL 100/25MCG 14 PUFFS/INHALER INH SCH (08:04)
[2021-02-05] MEDS: MULTIVITAMIN TAB PO SCH (08:05)
[2021-02-05] MEDS: ADVANCED PROBIOTIC 1250 MG CAPSULE PO SCH ×2 (08:05→12:27)
[2021-02-05] MEDS: ESCITALOPRAM OXALATE 10 MG TAB PO SCH (08:05)
[2021-02-05] MEDS: GABAPENTIN 100 MG CAP PO SCH ×3 (08:06→21:43)
[2021-02-05] MEDS: METOCLOPRAMIDE HCL 10 MG TABLET PO SCH ×4 (08:06→21:44)
[2021-02-05] MEDS: amLODIPine BESYLATE 5 MG TAB PO SCH (08:06)
[2021-02-05] MEDS: levETIRAcetam 250 MG TAB PO SCH ×2 (08:07→21:43)
[2021-02-05] MEDS: SUCRALFATE 1 GM TAB PO SCH ×4 (08:07→21:44)
[2021-02-05] MEDS: MoRPHine SULFATE CR 15 MG TABCR PO SCH ×2 (08:18→21:43)
[2021-02-05] MEDS: INSULIN ASPART 100 UNITS/ML 3 ML PEN SC SCH ×4 (08:30→21:42)
[2021-02-05] MEDS: oxyCODONE HCL IR 5 MG TAB (IMMEDIATE RELEASE) PO PRN ×2 (11:23→21:49)
[2021-02-05] MEDS: CYCLOBENZAPRINE HCL 5 MG TAB PO PRN (12:26)
[2021-02-05 14:25] LABS: Hematocrit (blood only) 29.2 % (42-52); Hemoglobin 9.6 g/dL (14.0-18.0); Mean Corpuscular Hemoglobin 28.8 pg (25-34); Mean Corpuscular Hgb Conc 32.9 g/dL (32-36); Mean Corpuscular Volume 87.7 fL (80-100); Mean Platelet Volume 10.7 fL (7.4-10.4); Platelet Count 225 K/uL (130-400); RDW Standard Deviation 44.9 fL (36.4-46.3); Red Blood Count 3.33 M/uL (4.7-6.1); White Blood Count 5.05 K/uL (4.8-10.8)
[2021-02-05 14:43] LABS: BUN Creatinine Ratio 10.3 (10-20); Calcium 7.8 mg/dl (8.5-10.1); Est GFR (African American) 28.4 ml/min; Est GFR (Non-African American) 24.5 ml/min; Magnesium 1.9 mg/dl (1.8-2.4); Phosphorus 3.8 mg/dl (2.5-4.9); Potassium 4.3 mmol/L (3.5-5.1)
--- NOTE | 2021-02-05 14:43 | Pharmacy Report ---
Pharmacy Glycemic Short Note 2 - Date of Service February 05, 2021 - Glycemic Short BSG Results (Last 24 hours): 02/04/21 02/04/21 02/04/21 16:41 20:49 20:51 POC Glucose 163 H 400 H* 411 H* 02/05/21 02/05/21 02/05/21 01:56 07:46 11:30 POC Glucose 185 H 229 H 143 H OUTPATIENT ANTIDIABETIC REGIMEN: * Basaglar 7 units HS * Humalog sliding scale ASSESSMENT: 02/05 * Patient's blood sugars acceptable, one high of 400 last night, unknown reason, was corrected down to goal, CF tightened slightly * Lantus give last night as patient started on clear liquid diet * No changes needed at this time 02/04 * 55 year old male, admitted for abdominal pain, nausea, vomiting, known to pharmacy glycemic service from admission last month * NPO - hold basal until diet ordered, CF/CR as per last admission at this time, titrate to goal blood sugar PLAN FOR INPATIENT GLYCEMIC CONTROL: * Basal insulin * Lantus 7 units SQ HS * Bolus insulin * NovoLog per scale ACHS or Q6hrs while NPO * Goal Range: Low 110 mg/dL - High 140 mg/dL * Correction Factor: 50 mg/dL/unit * Nutritional / Prandial insulin per carb ratio of 1 unit per 18 grams CHO consumed PLAN FOR DISCHARGE: * to be determined
--- NOTE | 2021-02-05 15:45 | Hospitalist Progress Note ---
Date of Service February 05, 2021 Assessment & Plan (1) Hypertensive crisis: Plan: Secondary to abdominal pain, nausea, emesis symptoms Ileus versus partial SBO on initial CT read History gastroparesis status post gastric pacemaker Possible opioid withdrawal, history chronic pain on narcotics ARF on CRI secondary to illness DM1, suboptimal control as of recent hemoglobin A1c of 11.4 last December 2020 NSCLC stage III, status post surgery, incomplete chemotherapy secondary to intolerance Seizure disorder, stable on maintenance AED tx chronic anemia, hemoglobin better than baseline likely secondary to hemoconcentration Past tobacco abuse Judicious narcotic use, suspect possible misuse Baseline UA, monitor creatinine response to IV fluids N.p.o. initially - then clear liquid diet which he 's tolerating He is having bowel movements, nausea vomiting much improved Asking to advance his diet, will advance now Discussed with GI, Dr. Demarco, -recommend outpatient follow-up as already scheduled in [place] to adjust gastric pacer Basal insulin adjusted for n.p.o. status for now, ISS BG goal 110-140 DVT prophylaxis. Heparin subcu Full code Admission and Anticipated Discharge Date Admission Date: February 04, 2021 Subjective Seen in follow-up of nausea, vomiting abdominal pain Reported that on he had some blood in his vomitus, then he vomited couple of times after that as well and there was no blood Hemoglobin stable Patient having bowel movements Was feeling hungry so advanced to clear liquid diet, which he tolerated well, now wants to try more solid food Denies fevers chills, chest pain, shortness of breath, denies any headache dizziness Plan for outpatient physician in [place] for gastric pacer adjustment on Saturday Review of Systems Review of Systems: All systems reviewed & are unremarkable except as noted in Subjective Physical Exam Physical Exam: GENERAL: thin male in NAD, resting HEENT: NC/AT, Partial alopecia, pale palpebral conjunctivae NECK : Supple, no tenderness CHEST : Decreased breath sounds, no tenderness HEART : RRR, no obvious murmurs ABDOMEN: mild distention, soft, + bowel sounds, mild central abdominal te nderness, nut mostly L ribcage tenderness (improved from previous exam) EXTREMITIES : No LE swelling/tenderness, moves extremities NEUROLOGIC : Coherent, no facial asymmetry, no other gross focality SKIN: Pallor, warm Results & Data Results & Data ([facility]) Vital Signs (Past 12 Hours) Vital Signs Temp Pulse Resp BP Pulse Ox 10/03/21 14:00 36.3 C L 85 18 184/96 H 97 02/05/21 04:04 36.5 C 81 18 155/80 H 98 Laboratory Results 02/05/21 02/05/21 02/05/21 Range/Units 14:12 14:12 11:30 WBC 5.05 (4.8-10.8) K/uL RBC 3.33 L (4.7-6.1) M/uL Hgb 9.6 L (14.0-18.0) g/dL Hct 29.2 L (42-52) % MCV 87.7 (80-100) fL MCH 28.8 (25-34) pg MCHC 32.9 (32-36) g/dL RDW Std Deviation 44.9 (36.4-46.3) fL RDW Coeff of Rik 14.0 (11.5-14.5) % Plt Count 225 (130-400) K/uL MPV 10.7 H (7.4-10.4) fL Sodium 137 (136-145) mmol/L Potassium 4.3 (3.5-5.1) mmol/L Chloride 106 (98-107) mmol/L Carbon Dioxide 22 (21-32) mmol/L Anion Gap 9.0 (3-11) BUN 29 H (7-18) mg/dl Creatinine 2.78 H (0.6-1.4) mg/dl Est Cr Clr Drug Dosing 29.0 ml/min Est GFR ( Amer) 28.4 ml/min Est GFR (Non-Af Amer) 24.5 ml/min BUN/Creatinine Ratio 10.3 (10-20) Glucose 135 H (70-99) mg/dl POC Glucose 143 H (70-99) mg/dl Calcium 7.8 L (8.5-10.1) mg/dl Phosphorus 3.8 (2.5-4.9) mg/dl Magnesium 1.9 (1.8-2.4) mg/dl Urine Color Urine Appearance (Clear) Urine pH (4.5-7.5) Ur Specific [place] (1.000-1.030) Urine Protein (Negative) Urine Glucose (UA) (Negative) Urine Ketones (Negative) Urine Blood (Negative) Urine Nitrite (Negative) Urine Bilirubin (Negative) Urine Urobilinogen (Negative) Ur Leukocyte Esterase (Negative) Urine WBC (Auto) (0-5) /hpf Urine RBC (Auto) (0-4) /hpf U Hyaline Cast (Auto) (0-5) /lpf U Epithel Cells (Auto) (0-5) /lpf Urine Bacteria (Auto) (Negative) Urine Opiates Screen (Neg) U Codeine Confrm GC/MS Ur Morphine (GC/MS) Ur Hydrocodone (GC/MS) Ur Norhydrocodone Ur Noroxycodone Urine Oxycodone (GC/MS) U Oxymorphone GC/MS Ur Methadone, Qual (Neg) Ur Hydromorphone (GC/MS) Urine Barbiturates (Neg) Ur Phencyclidine (PCP) (Neg) U Amphetamin/Meth Scrn (Neg) MDMA (Ecstasy) Screen (Neg) U Benzodiazepines Scrn (Neg) Ur Cocaine Metabolite (Neg) U Marijuana (THC) Screen (Neg) Drug Screen Comment 02/05/21 02/05/21 02/05/21 Range/Units 07:46 01:56 00:25 WBC (4.8-10.8) K/uL RBC (4.7-6.1) M/uL Hgb (14.0-18.0) g/dL Hct (42-52) % MCV (80-100) fL MCH (25-34) pg MCHC (32-36) g/dL RDW Std Deviation (36.4-46.3) fL RDW Coeff of Rik (11.5-14.5) % Plt Count (130-400) K/uL MPV (7.4-10.4) fL Sodium (136-145) mmol/L Potassium (3.5-5.1) mmol/L Chloride (98-107) mmol/L Carbon Dioxide (21-32) mmol/L Anion Gap (3-11) BUN (7-18) mg/dl Creatinine (0.6-1.4) mg/dl Est Cr Clr Drug Dosing ml/min Est GFR ( Amer) ml/min Est GFR (Non-Af Amer) ml/min BUN/Creatinine Ratio (10-20) Glucose (70-99) mg/dl POC Glucose 229 H 185 H (70-99) mg/dl Calcium (8.5-10.1) mg/dl Phosphorus (2.5-4.9) mg/dl Magnesium (1.8-2.4) mg/dl Urine Color Urine Appearance (Clear) Urine pH (4.5-7.5) Ur Specific [place] (1.000-1.030) Urine Protein (Negative) Urine Glucose (UA) (Negative) Urine Ketones (Negative) Urine Blood (Negative) Urine Nitrite (Negative) Urine Bilirubin (Negative) Urine Urobilinogen (Negative) Ur Leukocyte Esterase (Negative) Urine WBC (Auto) (0-5) /hpf Urine RBC (Auto) (0-4) /hpf U Hyaline Cast (Auto) (0-5) /lpf U Epithel Cells (Auto) (0-5) /lpf Urine Bacteria (Auto) (Negative) Urine Opiates Screen (Neg) U Codeine Confrm GC/MS Pending Ur Morphine (GC/MS) Pending Ur Hydrocodone (GC/MS) Pending Ur Norhydrocodone Pending Ur Noroxycodone Pending Urine Oxycodone (GC/MS) Pending U Oxymorphone GC/MS Pending Ur Methadone, Qual (Neg) Ur Hydromorphone (GC/MS) Pending Urine Barbiturates (Neg) Ur Phencyclidine (PCP) (Neg) U Amphetamin/Meth Scrn (Neg) MDMA (Ecstasy) Screen (Neg) U Benzodiazepines Scrn (Neg) Ur Cocaine Metabolite (Neg) U Marijuana (THC) Screen (Neg) Drug Screen Comment Pending 02/05/21 02/05/21 02/04/21 Range/Units 00:25 00:25 20:51 WBC (4.8-10.8) K/uL RBC (4.7-6.1) M/uL Hgb (14.0-18.0) g/dL Hct (42-52) % MCV (80-100) fL MCH (25-34) pg MCHC (32-36) g/dL RDW Std Deviation (36.4-46.3) fL RDW Coeff of Rik (11.5-14.5) % Plt Count (130-400) K/uL MPV (7.4-10.4) fL Sodium (136-145) mmol/L Potassium (3.5-5.1) mmol/L Chloride (98-107) mmol/L Carbon Dioxide (21-32) mmol/L Anion Gap (3-11) BUN (7-18) mg/dl Creatinine (0.6-1.4) mg/dl Est Cr Clr Drug Dosing ml/min Est GFR ( Amer) ml/min Est GFR (Non-Af Amer) ml/min BUN/Creatinine Ratio (10-20) Glucose (70-99) mg/dl POC Glucose 411 H* (70-99) mg/dl Calcium (8.5-10.1) mg/dl Phosphorus (2.5-4.9) mg/dl Magnesium (1.8-2.4) mg/dl Urine Color Yellow Urine Appearance Clear (Clear) Urine pH 6.0 (4.5-7.5) Ur Specific [place] 1.015 (1.000-1.030) Urine Protein 3+ H (Negative) Urine Glucose (UA) 3+ H (Negative) Urine Ketones Negative (Negative) Urine Blood Negative (Negative) Urine Nitrite Negative (Negative) Urine Bilirubin Negative (Negative) Urine Urobilinogen Negative (Negative) Ur Leukocyte Esterase Negative (Negative) Urine WBC (Auto) 1-5 (0-5) /hpf Urine RBC (Auto) 0-4 (0-4) /hpf U Hyaline Cast (Auto) 1-5 (0-5) /lpf U Epithel Cells (Auto) 5-10 H (0-5) /lpf Urine Bacteria (Auto) Negative (Negative) Urine Opiates Screen Pos H (Neg) U Codeine Confrm GC/MS Ur Morphine (GC/MS) Ur Hydrocodone (GC/MS) Ur Norhydrocodone Ur Noroxycodone Urine Oxycodone (GC/MS) U Oxymorphone GC/MS Ur Methadone, Qual Neg (Neg) Ur Hydromorphone (GC/MS) Urine Barbiturates Neg (Neg) Ur Phencyclidine (PCP) Neg (Neg) U Amphetamin/Meth Scrn Neg (Neg) MDMA (Ecstasy) Screen Neg (Neg) U Benzodiazepines Scrn Neg (Neg) Ur Cocaine Metabolite Neg (Neg) U Marijuana (THC) Screen Neg (Neg) Drug Screen Comment 10/02/21 10/02/21 Range/Units 20:49 16:41 WBC (4.8-10.8) K/uL RBC (4.7-6.1) M/uL Hgb (14.0-18.0) g/dL Hct (42-52) % MCV (80-100) fL MCH (25-34) pg MCHC (32-36) g/dL RDW Std Deviation (36.4-46.3) fL RDW Coeff of Rik (11.5-14.5) % Plt Count (130-400) K/uL MPV (7.4-10.4) fL Sodium (136-145) mmol/L Potassium (3.5-5.1) mmol/L Chloride (98-107) mmol/L Carbon Dioxide (21-32) mmol/L Anion Gap (3-11) BUN (7-18) mg/dl Creatinine (0.6-1.4) mg/dl Est Cr Clr Drug Dosing ml/min Est GFR ( Amer) ml/min Est GFR (Non-Af Amer) ml/min BUN/Creatinine Ratio (10-20) Glucose (70-99) mg/dl POC Glucose 400 H* 163 H (70-99) mg/dl Calcium (8.5-10.1) mg/dl Phosphorus (2.5-4.9) mg/dl Magnesium (1.8-2.4) mg/dl Urine Color Urine Appearance (Clear) Urine pH (4.5-7.5) Ur Specific [place] (1.000-1.030) Urine Protein (Negative) Urine Glucose (UA) (Negative) Urine Ketones (Negative) Urine Blood (Negative) Urine Nitrite (Negative) Urine Bilirubin (Negative) Urine Urobilinogen (Negative) Ur Leukocyte Esterase (Negative) Urine WBC (Auto) (0-5) /hpf Urine RBC (Auto) (0-4) /hpf U Hyaline Cast (Auto) (0-5) /lpf U Epithel Cells (Auto) (0-5) /lpf Urine Bacteria (Auto) (Negative) Urine Opiates Screen (Neg) U Codeine Confrm GC/MS Ur Morphine (GC/MS) Ur Hydrocodone (GC/MS) Ur Norhydrocodone Ur Noroxycodone Urine Oxycodone (GC/MS) U Oxymorphone GC/MS Ur Methadone, Qual (Neg) Ur Hydromorphone (GC/MS) Urine Barbiturates (Neg) Ur Phencyclidine (PCP) (Neg) U Amphetamin/Meth Scrn (Neg) MDMA (Ecstasy) Screen (Neg) U Benzodiazepines Scrn (Neg) Ur Cocaine Metabolite (Neg) U Marijuana (THC) Screen (Neg) Drug Screen Comment Medications Administered Current Inpatient Medications Acetaminophen (Acetaminophen 325 Mg Tab) 650 mg PO Q4H PRN PRN Reason: Pain or Fever Stop: 03/06/21 00:40 Amlodipine Besylate (Amlodipine Besylate 5 Mg Tab) 5 mg PO QAM [facility] Stop: 03/06/21 08:59 Last Admin: 02/05/21 08:06 Dose: 5 mg Documented by: Clonidine HCl (Clonidine Hcl 0.1 Mg/24 Hr Transderm Sys) 1 patch TD Q7D [facility] Stop: 03/06/21 08:59 Last Admin: 02/04/21 08:54 Dose: 1 patch Documented by: Cyclobenzaprine HCl (Cyclobenzaprine Hcl 5 Mg Tab) 5 mg PO TID PRN PRN Reason: Muscle Spasm Stop: 03/06/21 04:23 Last Admin: 02/05/21 12:26 Dose: 5 mg Documented by: Dextrose (Dextrose 50% 50 Ml Syringe) 25 - 50 ml IV UD PRN; Protocol PRN Reason: Hypoglycemia Protocol Stop: 03/06/21 00:40 Escitalopram Oxalate (Escitalopram Oxalate 10 Mg Tab) 10 mg PO QAM [facility] Stop: 03/06/21 08:59 Last Admin: 02/05/21 08:05 Dose: 10 mg Documented by: Fluticasone/Vilanterol (Fluticasone/Vilanterol 100/25mcg 14 Puffs/Inhaler) 1 puffs INH DAILY [facility]; Protocol Stop: 03/06/21 08:59 Last Admin: 02/05/21 08:04 Dose: 1 puffs Documented by: Gabapentin (Gabapentin 100 Mg Cap) 100 mg PO TID [facility] Stop: 03/06/21 08:59 Last Admin: 02/05/21 15:14 Dose: 100 mg Documented by: Glucagon (Glucagon For Inj 1 Mg Vial) 1 mg SQ UD PRN; Protocol PRN Reason: Hypoglycemia Protocol Stop: 03/06/21 00:40 Glucose (Glucose 10 Tabs/Tube) 4 - 8 tabs PO UD PRN; Protocol PRN Reason: Hypoglycemia Protocol Stop: 03/06/21 00:40 Glucose (Glucose 40% Gel 15 Gm Tube) 15 - 30 gm PO UD PRN; Protocol PRN Reason: Hypoglycemia Protocol Stop: 03/06/21 00:40 Heparin Sodium (Porcine) (Heparin Sod 5,000 Unit/0.5 Ml Vial) 5,000 units SQ Q8 [facility] Stop: 03/06/21 05:59 Last Admin: 02/05/21 15:14 Dose: 5,000 units Documented by: Promethazine HCl 12.5 mg/ (Sodium Chloride) 50.5 mls @ 202 mls/hr IV Q6H PRN PRN Reason: Nausea And Vomiting Stop: 03/06/21 00:40 Sodium Chloride (Nss 1000ml) 1,000 mls @ 75 mls/hr IV .[id number] [facility] Stop: 03/06/21 04:14 Last Admin: 02/05/21 06:25 Dose: 75 mls/hr Documented by: Pantoprazole Sodium 40 mg/ (Dextrose) 100 mls @ 20 mls/hr IV Q5H [facility] Stop: 03/06/21 16:29 Last Admin: 02/05/21 12:33 Dose: 8 mg/hr, 20 mls/hr Documented by: Insulin Aspart (Insulin Aspart 100 Units/Ml 3 Ml Pen) 0 units SC ACHS [facility]; Protocol Stop: 03/06/21 06:29 Last Admin: 02/05/21 15:12 Dose: 4 units Documented by: Insulin Glargine (Insulin Glargine Solostar 100 Units/Ml 3 Ml Pen) 0 units SQ HS [facility]; Protocol Stop: 03/06/21 20:59 Last Admin: 02/04/21 21:22 Dose: 7 units Documented by: Lactobacillus Acidoph/Casei/Rhamnos (Advanced Probiotic 1250 Mg Capsule) 1 cap PO DAILY@0800,1200 [facility] Stop: 03/06/21 07:59 Last Admin: 02/05/21 12:27 Dose: 1 cap Documented by: Levetiracetam (Levetiracetam 250 Mg Tab) 750 mg PO BID [facility] Stop: 03/06/21 00:44 Last Admin: 02/05/21 08:07 Dose: 750 mg Documented by: Lidocaine (Lidocaine 5% 1 Patch) 1 patch TD DAILY@1630 [facility] Stop: 03/06/21 16:29 Last Admin: 02/04/21 17:07 Dose: 1 patch Documented by: Metoclopramide HCl (Metoclopramide Hcl 10 Mg Tablet) 10 mg PO ACHS [facility] Stop: 03/06/21 07:29 Last Admin: 02/05/21 12:27 Dose: 10 mg Documented by: Miscellaneous (Carbohydrates For Hypoglycemia ) 15 - 30 gm PO UD PRN PRN Reason: Hypoglycemia Protocol Stop: 03/06/21 00:40 Miscellaneous (Remove Clonidine Patch) 1 ea N/A CQWK [facility] Stop: 03/06/21 08:58 Last Admin: 02/04/21 08:59 Dose: 1 ea Documented by: Miscellaneous (Check Clonidine Patch Placement) 1 ea N/A QS [facility] Stop: 03/06/21 15:59 Last Admin: 02/05/21 15:14 Dose: 1 ea Documented by: Miscellaneous (Remove Lidoderm Patch) 1 ea N/A DAILY@0500 [facility] Stop: 03/07/21 04:59 Last Admin: 02/05/21 06:27 Dose: 1 ea Documented by: Miscellaneous Information (Pharmacy Glycemic Mgmt Consult) 1 ea N/A UD PRN PRN Reason: Consult Stop: 03/06/21 09:59 Morphine Sulfate (Morphine Sulfate Cr 15 Mg Tabcr) 30 mg PO Q12 [facility] Stop: 02/18/21 08:59 Last Admin: 02/05/21 08:18 Dose: 30 mg Documented by: Multivitamins (Multivitamin Tab) 1 tab PO QAM [facility] Stop: 03/06/21 08:59 Last Admin: 02/05/21 08:05 Dose: 1 tab Documented by: Neomycin/Polymyxin/Bacitracin (Neomycin/Polymyx/Bacitr Oint 15 Gm Tube) 1 appln EXT PRN PRN PRN Reason: [facility] Stop: 03/07/21 08:00 Last Admin: 02/05/21 11:26 Dose: 1 appln Documented by: Oxycodone HCl (Oxycodone Hcl Ir 5 Mg Tab (Immediate Release)) 5 mg PO Q4H PRN PRN Reason: severe pain Stop: 02/18/21 04:23 Last Admin: 02/05/21 11:23 Dose: 5 mg Documented by: Pantoprazole Sodium (Pantoprazole 40 Mg Tab) 40 mg PO QAM [facility] Stop: 03/06/21 08:59 Last Admin: 02/04/21 08:57 Dose: 40 mg Documented by: Sucralfate (Sucralfate 1 Gm Tab) 1 gm PO QID [facility] Stop: 03/06/21 08:59 Last Admin: 02/05/21 12:27 Dose: 1 gm Documented by:
[2021-02-05] MEDS: LIDOCAINE 5% 1 PATCH TD SCH (18:18)
--- NOTE | 2021-02-05 19:25 | Electrocardiogram Report ---
Test Reason : Blood Pressure : / mmHG Vent. Rate : 086 BPM Atrial Rate : 086 BPM P-R Int : 150 ms QRS Dur : 092 ms QT Int : 376 ms P-R-T Axes : 055 022 041 degrees QTc Int : 449 ms Normal sinus rhythm Septal infarct (cited on or before 20-DEC-2020) Abnormal ECG When compared with ECG of 22-JAN-2021 18:46, No significant change was found Confirmed by Lionel Ta ([id number]) on 02/05/2021 7:24:58 PM Referred By: REFERRED SELF Confirmed By:Lionel Ta
[2021-02-05] MEDS: INSULIN GLARGINE SOLOSTAR 100 UNITS/ML 3 ML PEN SQ SCH (21:42)
[2021-02-06] MEDS: CHECK CLONIDINE PATCH PLACEMENT SCH ×2 (00:51→09:29)
[2021-02-06] MEDS ORDERED: amLODIPine BESYLATE 5 MG TAB PO SCH (03:15)
[2021-02-06] MEDS: PANTOprazole 40 MG in DEXTROSE 5% 100 ML IV SCH ×3 (03:38→13:21)
[2021-02-06] MEDS: HEPARIN SOD 5,000 UNIT/0.5 ML VIAL SQ SCH ×2 (05:18→12:24)
[2021-02-06 05:55] LABS: Hematocrit (blood only) 28.2 % (42-52); Hemoglobin 9.2 g/dL (14.0-18.0); Mean Corpuscular Hemoglobin 28.8 pg (25-34); Mean Corpuscular Hgb Conc 32.6 g/dL (32-36); Mean Corpuscular Volume 88.4 fL (80-100); Mean Platelet Volume 10.7 fL (7.4-10.4); Platelet Count 217 K/uL (130-400); RDW Standard Deviation 46.1 fL (36.4-46.3); Red Blood Count 3.19 M/uL (4.7-6.1); White Blood Count 10.14 K/uL (4.8-10.8)
[2021-02-06 06:17] LABS: Potassium 4.4 mmol/L (3.5-5.1)
[2021-02-06 06:41] LABS: BUN Creatinine Ratio 9.3 (10-20); Creatinine Clr Calc Pharmacy 26.9 ml/min; Est GFR (African American) 26.1 ml/min; Est GFR (Non-African American) 22.5 ml/min; Magnesium 1.5 mg/dl (1.8-2.4)
[2021-02-06 06:45] LABS: Phosphorus 4.4 mg/dl (2.5-4.9)
[2021-02-06] MEDS: MoRPHine SULFATE CR 15 MG TABCR PO SCH (09:26)
[2021-02-06] MEDS: SODIUM CHLORIDE 0.9% 1000ML 1,000 ML IV SCH (09:26)
[2021-02-06] MEDS: MULTIVITAMIN TAB PO SCH (09:27)
[2021-02-06] MEDS: ADVANCED PROBIOTIC 1250 MG CAPSULE PO SCH ×2 (09:27→12:23)
[2021-02-06] MEDS: ESCITALOPRAM OXALATE 10 MG TAB PO SCH (09:27)
[2021-02-06] MEDS: SUCRALFATE 1 GM TAB PO SCH ×2 (09:27→12:23)
[2021-02-06] MEDS: METOCLOPRAMIDE HCL 10 MG TABLET PO SCH ×2 (09:28→12:23)
[2021-02-06] MEDS: GABAPENTIN 100 MG CAP PO SCH ×2 (09:28→12:23)
[2021-02-06] MEDS: levETIRAcetam 250 MG TAB PO SCH (09:28)
[2021-02-06] MEDS: FLUTICASONE/VILANTEROL 100/25MCG 14 PUFFS/INHALER INH SCH (09:29)
[2021-02-06] MEDS: INSULIN ASPART 100 UNITS/ML 3 ML PEN SC SCH ×2 (09:33→12:25)
--- NOTE | 2021-02-06 12:14 | Gastrointestinal Consultation ---
Date of Consultation February 06, 2021 Assessment & Plan (1) Gastroparesis: Seemingly relapsing remitting gastroparesis exacerbated by narcotic usage. Is doing well now okay with discharge to follow-up tomorrow for titration of his gastric pacer. Call with questions History of Present Illness Attending Physician: Lorne Segal MD History of Present Illness 55 year old male with history of COPD; non-small cell lung cancer, stage III, status post surgery, incomplete chemotherapy secondary to intolerance; history of ulcerative colitis; gastroparesis, status post gastric pacemaker x 2, most recently in May 2020; chronic pain, on narcotics; hypertension; type 1 diabetes; diabetic neuropathy; past tobacco abuse; chronic kidney disease, baseline creatinine around 2; chronic anemia, baseline hemoglobin around 2; history of seizure disorder; history of neurogenic bladder admitted nausea/vomiting abd pain CTAP w/ ileus vs SBO, similar to presentation 2 wks ago. He today states he is no longer having any nausea, vomiting, no abdominal pain and is back to his baseline. Has an appointment tomorrow for an adjustment of his gastric pacemaker. Allergies Allergy/AdvReac Type Severity Reaction Status Date / Time bee venom protein (honey bee) Allergy Mild SWELLING Verified 02/03/21 20:58 AT SITE, SOB Penicillins Allergy Unknown "SINCE Verified 02/03/21 20:58 "-Amoxicillin blue dye Allergy Verified 02/05/21 08:38 cat dander Allergy Unknown Verified 02/03/21 20:58 red (food color) Allergy Verified 02/05/21 08:38 red dye Allergy Verified 02/05/21 08:38 Home Medications Medication Instructions Recorded Confirmed Type albuterol sulfate 90 mcg/actuation 2 puff INHALATION Q4H PRN 05/05/18 02/03/21 History aerosol inhaler (Ventolin HFA) epinephrine 0.3 mg/0.3 mL 0.3 mg IM Q3H PRN 05/05/18 02/03/21 History injection, auto-injector (EpiPen) insulin glargine 100 unit/mL (3 7 unit SUBCUT HS 05/05/18 02/03/21 History mL) subcutaneous pen (Basaglar KwikPen U-100 Insulin) insulin lispro 100 unit/mL 1 sliding scale dose SUBCUT UD 05/05/18 02/03/21 History subcutaneous cartridge (Humalog U-100 Insulin) multivitamin 1 tab PO QAM 05/05/18 02/03/21 History pantoprazole 40 mg tablet,delayed 40 mg PO QAM 05/05/18 02/03/21 History release (Protonix) clonidine 0.2 mg/24 hr weekly 1 patch TRANSDERMAL WK 01/23/20 02/03/21 History transdermal patch (Pqibbclh-SPE-7) escitalopram oxalate 10 mg tablet 10 mg PO QAM 01/24/20 02/03/21 History (Lexapro) fluticasone 250 mcg-salmeterol 50 1 inh INHALATION BID 01/24/20 02/03/21 History mcg/dose blistr powdr for inhalation (Wixela Inhub) amlodipine 5 mg tablet (Norvasc) 5 mg PO QAM #30 tab 01/29/20 02/03/21 Rx levetiracetam 750 mg tablet 750 mg PO BID 30 Days #60 tab 01/29/20 02/03/21 Rx (Keppra) cyclobenzaprine 5 mg tablet 5 mg PO TID PRN 12/20/20 02/03/21 History ondansetron 8 mg disintegrating 8 mg PO Q8H PRN 12/20/20 02/03/21 History tablet morphine 30 mg tablet,extended 30 mg PO Q12H #10 tab 12/29/20 02/03/21 Rx release (MS Contin) L.acidop,casei,lactis,rham-B.lact,jose 1 cap PO BID 01/22/21 02/03/21 History 625 mg (10 billion cell) capsule (Advanced Probiotic) gabapentin 100 mg capsule 100 mg PO TID 01/22/21 02/03/21 History (Neurontin) magnesium oxide 400 mg (241.3 mg 400 mg PO BID 01/22/21 02/03/21 History magnesium) tablet (MagOx) metoclopramide HCl 10 mg tablet 10 mg PO ACHS 01/22/21 02/03/21 History (Reglan) oxycodone 5 mg tablet (Roxicodone) 5 mg PO Q4H PRN 01/22/21 02/03/21 History sucralfate 1 gram tablet (Carafate) 1 g PO QID 01/22/21 02/03/21 History Patient History Medical History Acute dyspnea Acute hyponatremia Acute renal insufficiency IVAN (acute kidney injury) Anemia Chest pain No current chest pain...related to reflux per patient Chronic pain COPD (chronic obstructive pulmonary disease) Diabetes mellitus type 2, uncontrolled Diabetic autonomic neuropathy Diabetic peripheral neuropathy Discharge planning issues DVT prophylaxis Elevated d-dimer Gastroparesis "s/p gastric stimulator" Hypertension Hypomagnesemia Intractable nausea and vomiting 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 One 1 mm polyp in the ascending colon resected. One benign appearing 1 mm polyp in the rectum resected. Internal hemorrhoids; Dr. Demarco" H/O esophagogastroduodenoscopy "01/26/2015- [place] Grade B reflux esophagitis, gastritis; Dr. Major" History of cholecystectomy History of tonsillectomy and adenoidectomy Hx of total knee arthroplasty S/P lobectomy of lung "left upper lobectomy for adenoCa" On 08/05/16 16:30 Edie Mcfarland wrote "L side @ [facility] 05/25/16" Status post insertion of intrathecal pump explanted Family History Other Family history non-contributory Social History Smoking Status: Former smoker Tobacco Type: Cigarettes Smoking End Date: quit 20 years ago; Second Hand Exposure: No; Hx Alcohol Use: No Hx Substance Use: No Preferred Language: Divehi Communication Ability: Effective Classroom Teacher Required: No Beliefs That Will Affect Care: Lutheran Lutheran Beliefs: Restorationism marital status: Legally Current Living Situation: Alone How many Children do You have: 5 Feels Safe at Home: Yes Safety Concerns: Feels Safe At This Time Assistive Devices: Cane and Glasses Review of Systems Review of Systems: 10 system review is negative except for stated as above Physical Exam Constitutional: WD/WN, vitals as above Cardiovascular: RRR, no murmur, no edema Gastrointestinal (Abdomen): normal bowel sounds, soft, nontender, no hepatos plenomegaly Results & Data ([facility]) Vital Signs (Past 12 Hours) Vital Signs Temp Pulse Pulse Resp BP Pulse Ox 02/06/21 11:34 37.2 C 90 16 174/94 H 96 02/06/21 07:54 101 H 02/06/21 07:45 36.9 C 82 16 142/78 H 91 02/06/21 04:08 37.2 C 95 H 18 121/65 95 02/06/21 04:00 104 H
[2021-02-06] MEDS ORDERED: MAGNESIUM SULFATE / D5W 1 GM/100 ML BAG IV ONE (12:29)
--- NOTE | 2021-02-06 12:29 | Hospitalist Progress Note ---
Date of Service February 06, 2021 Assessment & Plan (1) Hypertensive crisis: Plan: Secondary to abdominal pain, nausea, emesis symptoms Ileus versus partial SBO on initial CT read History gastroparesis status post gastric pacemaker Possible opioid withdrawal, history chronic pain on narcotics ARF on CRI secondary to illness -Creatinine without any significant changes -Follow-up with outpatient nephrology DM1, suboptimal control as of recent hemoglobin A1c of 11.4 last December 2020 Basal insulin adjusted for n.p.o. status for now, ISS BG goal 110-140 NSCLC stage III, status post surgery, incomplete chemotherapy secondary to intolerance Rib, lytic lesion, scheduled for PET scan for February 08, and follow-up with oncology on February 17 Seizure disorder, stable on maintenance AED tx Chronic anemia, hemoglobin better than baseline likely secondary to hemoconce ntration Past tobacco abuse N.p.o. initially - then clear liquid diet, now on gastroparesis diet which he is tolerating well currently no abdominal pain, nausea vomiting +having bowel movements Discussed with GI -recommend outpatient follow-up as already scheduled in [place] to adjust gastric pacer DVT prophylaxis. Heparin subcu Full code Admission and Anticipated Discharge Date Admission Date: February 04, 2021 Subjective Seen in follow-up of nausea, vomiting abdominal pain Currently patient denies any more vomiting, abdominal pain, nausea Patient having bowel movements Tolerating gastroparesis diet Also denies fevers chills, chest pain, shortness of breath, denies any headache dizziness Seen by GI today, continue the plan as below Plan for outpatient physician in [place] for gastric pacer adjustment on Saturday Review of Systems Review of Systems: All systems reviewed & are unremarkable except as noted in Subjective Physical Exam Physical Exam: GENERAL: thin male in NAD, resting HEENT: NC/AT, Partial alopecia, pale palpebral conjunctivae NECK : Supple, no tenderness CHEST : Decreased breath sounds, no tenderness HEART : RRR, no obvious murmurs ABDOMEN: mild distention, soft, + bowel sounds, minimal central abdominal tenderness, but mostly L ribcage tenderness (improved from previous exam) EXTREMITIES : No LE swelling/tenderness, moves extremities NEUROLOGIC : Coherent, no facial asymmetry, speech fluent, moves extremities SKIN: Pallor, warm Results & Data Results & Data ([facility]) Vital Signs (Past 12 Hours) Vital Signs Temp Pulse Pulse Resp BP Pulse Ox 02/06/21 11:34 37.2 C 90 16 174/94 H 96 10/04/21 07:54 101 H 02/06/21 07:45 36.9 C 82 16 142/78 H 91 02/06/21 04:08 37.2 C 95 H 18 121/65 95 02/06/21 04:00 104 H Laboratory Results 02/06/21 02/06/21 02/06/21 Range/Units 11:52 07:54 05:39 WBC (4.8-10.8) K/uL RBC (4.7-6.1) M/uL Hgb (14.0-18.0) g/dL Hct (42-52) % MCV (80-100) fL MCH (25-34) pg MCHC (32-36) g/dL RDW Std Deviation (36.4-46.3) fL RDW Coeff of Rik (11.5-14.5) % Plt Count (130-400) K/uL MPV (7.4-10.4) fL Sodium 137 (136-145) mmol/L Potassium 4.4 (3.5-5.1) mmol/L Chloride 108 H (98-107) mmol/L Carbon Dioxide 22 (21-32) mmol/L Anion Gap 7.0 (3-11) BUN 28 H (7-18) mg/dl Creatinine 2.98 H (0.6-1.4) mg/dl Est Cr Clr Drug Dosing 26.9 ml/min Est GFR ( Amer) 26.1 ml/min Est GFR (Non-Af Amer) 22.5 ml/min BUN/Creatinine Ratio 9.3 L (10-20) Glucose 154 H (70-99) mg/dl POC Glucose 194 H 230 H (70-99) mg/dl Calcium 8.0 L (8.5-10.1) mg/dl Phosphorus 4.4 (2.5-4.9) mg/dl Magnesium 1.5 L (1.8-2.4) mg/dl 02/06/21 02/05/21 02/05/21 Range/Units 05:39 20:08 16:31 WBC 10.14 (4.8-10.8) K/uL RBC 3.19 L (4.7-6.1) M/uL Hgb 9.2 L (14.0-18.0) g/dL Hct 28.2 L (42-52) % MCV 88.4 (80-100) fL MCH 28.8 (25-34) pg MCHC 32.6 (32-36) g/dL RDW Std Deviation 46.1 (36.4-46.3) fL RDW Coeff of Rik 14.0 (11.5-14.5) % Plt Count 217 (130-400) K/uL MPV 10.7 H (7.4-10.4) fL Sodium (136-145) mmol/L Potassium (3.5-5.1) mmol/L Chloride (98-107) mmol/L Carbon Dioxide (21-32) mmol/L Anion Gap (3-11) BUN (7-18) mg/dl Creatinine (0.6-1.4) mg/dl Est Cr Clr Drug Dosing ml/min Est GFR ( Amer) ml/min Est GFR (Non-Af Amer) ml/min BUN/Creatinine Ratio (10-20) Glucose (70-99) mg/dl POC Glucose 95 137 H (70-99) mg/dl Calcium (8.5-10.1) mg/dl Phosphorus (2.5-4.9) mg/dl Magnesium (1.8-2.4) mg/dl 02/05/21 02/05/21 Range/Units 14:12 14:12 WBC 5.05 (4.8-10.8) K/uL RBC 3.33 L (4.7-6.1) M/uL Hgb 9.6 L (14.0-18.0) g/dL Hct 29.2 L (42-52) % MCV 87.7 (80-100) fL MCH 28.8 (25-34) pg MCHC 32.9 (32-36) g/dL RDW Std Deviation 44.9 (36.4-46.3) fL RDW Coeff of Rik 14.0 (11.5-14.5) % Plt Count 225 (130-400) K/uL MPV 10.7 H (7.4-10.4) fL Sodium 137 (136-145) mmol/L Potassium 4.3 (3.5-5.1) mmol/L Chloride 106 (98-107) mmol/L Carbon Dioxide 22 (21-32) mmol/L Anion Gap 9.0 (3-11) BUN 29 H (7-18) mg/dl Creatinine 2.78 H (0.6-1.4) mg/dl Est Cr Clr Drug Dosing 29.0 ml/min Est GFR ( Amer) 28.4 ml/min Est GFR (Non-Af Amer) 24.5 ml/min BUN/Creatinine Ratio 10.3 (10-20) Glucose 135 H (70-99) mg/dl POC Glucose (70-99) mg/dl Calcium 7.8 L (8.5-10.1) mg/dl Phosphorus 3.8 (2.5-4.9) mg/dl Magnesium 1.9 (1.8-2.4) mg/dl Medications Administered Current Inpatient Medications Acetaminophen (Acetaminophen 325 Mg Tab) 650 mg PO Q4H PRN PRN Reason: Pain or Fever Stop: 03/06/21 00:40 Amlodipine Besylate (Amlodipine Besylate 5 Mg Tab) [facility] [place]: 03/08/21 03:14 Last Admin: 02/06/21 05:18 Dose: 5 mg Documented by: Clonidine HCl (Clonidine Hcl 0.2 Mg/24 Hr Transderm Sys) 1 patch TD Q7D@2100 [facility] Stop: 03/08/21 00:00 Last Admin: 02/06/21 00:49 Dose: 1 patch Documented by: Cyclobenzaprine HCl (Cyclobenzaprine Hcl 5 Mg Tab) 5 mg PO TID PRN PRN Reason: Muscle Spasm Stop: 03/06/21 04:23 Last Admin: 02/05/21 12:26 Dose: 5 mg Documented by: Dextrose (Dextrose 50% 50 Ml Syringe) 25 - 50 ml IV UD PRN; Protocol PRN Reason: Hypoglycemia Protocol Stop: 03/06/21 00:40 Escitalopram Oxalate (Escitalopram Oxalate 10 Mg Tab) 10 mg PO QAM [facility] Stop: 03/06/21 08:59 Last Admin: 02/06/21 09:27 Dose: 10 mg Documented by: Fluticasone/Vilanterol (Fluticasone/Vilanterol 100/25mcg 14 Puffs/Inhaler) 1 puffs INH DAILY [facility]; Protocol Stop: 03/06/21 08:59 Last Admin: 02/06/21 09:29 Dose: 1 puffs Documented by: Gabapentin (Gabapentin 100 Mg Cap) 100 mg PO TID [facility] Stop: 03/06/21 08:59 Last Admin: 02/06/21 12:23 Dose: 100 mg Documented by: Glucagon (Glucagon For Inj 1 Mg Vial) 1 mg SQ UD PRN; Protocol PRN Reason: Hypoglycemia Protocol Stop: 03/06/21 00:40 Glucose (Glucose 10 Tabs/Tube) 4 - 8 tabs PO UD PRN; Protocol PRN Reason: Hypoglycemia Protocol Stop: 03/06/21 00:40 Glucose (Glucose 40% Gel 15 Gm Tube) 15 - 30 gm PO UD PRN; Protocol PRN Reason: Hypoglycemia Protocol Stop: 03/06/21 00:40 Heparin Sodium (Porcine) (Heparin Sod 5,000 Unit/0.5 Ml Vial) 5,000 units SQ Q8 [facility] Stop: 03/06/21 05:59 Last Admin: 02/06/21 12:24 Dose: 5,000 units Documented by: Promethazine HCl 12.5 mg/ (Sodium Chloride) 50.5 mls @ 202 mls/hr IV Q6H PRN PRN Reason: Nausea And Vomiting Stop: 03/06/21 00:40 Sodium Chloride (Nss 1000ml) 1,000 mls @ 75 mls/hr IV .[id number] [facility] Stop: 03/06/21 04:14 Last Admin: 02/06/21 09:26 Dose: 75 mls/hr Documented by: Pantoprazole Sodium 40 mg/ (Dextrose) 100 mls @ 20 mls/hr IV Q5H [facility] Stop: 03/06/21 16:29 Last Admin: 02/06/21 08:27 Dose: 8 mg/hr, 20 mls/hr Documented by: Magnesium Sulfate/Dextrose (Magnesium Sulfate / D5w) 1 gm in 100 mls @ 50 mls/hr IV ONE ONE Stop: 02/06/21 14:28 Insulin Aspart (Insulin Aspart 100 Units/Ml 3 Ml Pen) 0 units SC [facility]; Protocol Stop: 03/06/21 06:29 Last Admin: 02/06/21 12:25 Dose: 4 units Documented by: Insulin Glargine (Insulin Glargine Solostar 100 Units/Ml 3 Ml Pen) 0 units SQ [facility]; Protocol Stop: 03/06/21 20:59 Last Admin: 02/05/21 21:42 Dose: 7 units Documented by: Lactobacillus Acidoph/Casei/Rhamnos (Advanced Probiotic 1250 Mg Capsule) 1 cap PO DAILY@0800,1200 [facility] Stop: 03/06/21 07:59 Last Admin: 02/06/21 12:23 Dose: 1 cap Documented by: Levetiracetam (Levetiracetam 250 Mg Tab) 750 mg PO BID [facility] Stop: 03/06/21 00:44 Last Admin: 02/06/21 09:28 Dose: 750 mg Documented by: Lidocaine (Lidocaine 5% 1 Patch) 1 patch TD DAILY@1630 [facility] Stop: 03/06/21 16:29 Last Admin: 02/05/21 18:18 Dose: 1 patch Documented by: Magnesium Oxide (Magnesium Oxide 400 Mg Tab) 400 mg PO BID [facility] Stop: 03/08/21 12:29 Metoclopramide HCl (Metoclopramide Hcl 10 Mg Tablet) 10 mg PO ACHS [facility] Stop: 03/06/21 07:29 Last Admin: 02/06/21 12:23 Dose: 10 mg Documented by: Miscellaneous (Carbohydrates For Hypoglycemia ) 15 - 30 gm PO UD PRN PRN Reason: Hypoglycemia Protocol Stop: 03/06/21 00:40 Miscellaneous (Remove Lidoderm Patch) 1 ea N/A DAILY@0500 [facility] Stop: 03/07/21 04:59 Last Admin: 02/06/21 05:18 Dose: 1 ea Documented by: Miscellaneous (Remove Clonidine Patch) 1 ea N/A CQWK [facility] Stop: 03/15/21 20:58 Miscellaneous (Check Clonidine Patch Placement) 1 ea N/A QS [facility] Stop: 03/08/21 00:00 Last Admin: 02/06/21 09:29 Dose: 1 ea Documented by: Miscellaneous Information (Pharmacy Glycemic Mgmt Consult) 1 ea N/A UD PRN PRN Reason: Consult Stop: 03/06/21 09:59 Morphine Sulfate (Morphine Sulfate Cr 15 Mg Tabcr) 30 mg PO Q12 [facility] Stop: 02/18/21 08:59 Last Admin: 02/06/21 09:26 Dose: 30 mg Documented by: Multivitamins (Multivitamin Tab) 1 tab PO QAM [facility] Stop: 03/06/21 08:59 Last Admin: 02/06/21 09:27 Dose: 1 tab Documented by: Neomycin/Polymyxin/Bacitracin (Neomycin/Polymyx/Bacitr Oint 15 Gm Tube) 1 appln EXT PRN PRN PRN Reason: Harris Stop: 03/07/21 08:00 Last Admin: 02/05/21 11:26 Dose: 1 appln Documented by: Oxycodone HCl (Oxycodone Hcl Ir 5 Mg Tab (Immediate Release)) 5 mg PO Q4H PRN PRN Reason: severe pain Stop: 02/18/21 04:23 Last Admin: 02/05/21 21:49 Dose: 5 mg Documented by: Pantoprazole Sodium (Pantoprazole 40 Mg Tab) 40 mg PO QAM [facility] Stop: 03/06/21 08:59 Last Admin: 02/04/21 08:57 Dose: 40 mg Documented by: Sucralfate (Sucralfate 1 Gm Tab) 1 gm PO QID [facility] Stop: 03/06/21 08:59 Last Admin: 02/06/21 12:23 Dose: 1 gm Documented by:
[2021-02-06] MEDS ORDERED: MAGNESIUM OXIDE 400 MG TAB PO SCH (12:30)
--- NOTE | 2021-02-06 12:53 | Discharge Summary ---
Date of Service February 06, 2021 Admission HPI Per Admitting Provider Chief Complaint: Abdominal pain, nausea, emesis Primary Care Provider: Juan Lamb MD History obtained from patient and records. Medical history significant for COPD, NSCLC stage III, status post surgery, incomplete chemotherapy secondary to intolerance, IBD, gastroparesis status post gastric pacemaker, chronic pain on narcotics, HTN, DM1, DM neuropathy, past tobacco abuse, CRI (baseline creatinine 2), chronic anemia (baseline hemoglobin 9), seizure disorder as per records, hx neurogenic bladder as per records. 3 admissions at [facility] since December 2020. Last [facility] confinement from January 22-2020 for abdominal pain, nausea vomiting attributed to gastroparesis. Patient instructed to follow-up with gastric pacemaker position at [facility] as per records. Persistent abdominal pain, nausea, emesis symptoms since leaving the hospital. No chest pain. No unusual shortness of breath. Achy headache symptoms. Patient also complaining of fever, chills. Patient missed appointment with gastroparesis physician because specialist was unavailable as per patient. Patient consulted ER for worsening symptoms. Medical History as above Surgical History : Knee surgery, thorascopy, lymphadenectomy, lung lobectomy, tonsillectomy/adenoidectomy Family History : Lung cancer, diabetes, renal cell carcinoma Personal/Social history : Past tobacco abuse, no EtOH intake, disabled Admission Exam Per Admitting Provider GENERAL: uncomfortable, no respiratory distress SKIN: Pallor, warm HEENT: Partial alopecia, pale palpebral conjunctivae, no ptosis, dry buccal mucosa NECK : Supple, no tenderness CHEST : Decreased breath sounds, no tenderness HEART : RRR, no obvious murmurs ABDOMEN: Some distention, central abdominal tenderness EXTREMITIES : No LE swelling/tenderness, no other conspicuous deformities noted NEUROLOGIC : Coherent, no facial asymmetry, no other gross focality Principal Diagnosis Nausea, vomiting, in the setting of gastric gastroparesis Discharge Exam GENERAL: thin male in NAD, resting HEENT: NC/AT, Partial alopecia, pale palpebral conjunctivae NECK : Supple, no tenderness CHEST : Decreased breath sounds, no tenderness HEART : RRR, no obvious murmurs ABDOMEN: mild distention, soft, + bowel sounds, minimal central abdominal tenderness, but mostly L ribcage tenderness (improved from previous exam) EXTREMITIES : No LE swelling/tenderness, moves extremities NEUROLOGIC : Coherent, no facial asymmetry, speech fluent, moves extremities SKIN: Pallor, warm Discharge Data Allergies Allergy/AdvReac Type Severity Reaction Status Date / Time bee venom protein (honey bee) Allergy Mild SWELLING Verified 02/03/21 20:58 AT SITE, SOB Penicillins Allergy Unknown "SINCE Verified 02/03/21 20:58 "-Amoxicillin blue dye Allergy Verified 02/05/21 08:38 cat dander Allergy Unknown Verified 02/03/21 20:58 red (food color) Allergy Verified 02/05/21 08:38 red dye Allergy Verified 02/05/21 08:38 Consultations 02/03/21 21:39 ED Decision to Admit Stat 02/04/21 10:01 Consult Gastroenterology Routine Ordered Studies 02/03/21 22:20 CT abd pelvis wo con Urgent CT head/brain wo con Urgent Hospital Course (1) Hypertensive crisis: Secondary to abdominal pain, nausea, emesis symptoms Ileus versus partial SBO on initial CT read History gastroparesis status post gastric pacemaker Possible opioid withdrawal, history chronic pain on narcotics ARF on CRI secondary to illness -Creatinine without any significant changes -Follow-up with outpatient nephrology DM1, suboptimal control as of recent hemoglobin A1c of 11.4 last December 2020 Basal insulin adjusted for n.p.o. status for now, ISS BG goal 110-140 NSCLC stage III, status post surgery, incomplete chemotherapy secondary to intolerance Rib, lytic lesion, scheduled for PET scan for February 08, and follow-up with oncology on February 17 Seizure disorder, stable on maintenance AED tx Chronic anemia, hemoglobin better than baseline likely secondary to hemoconcentration Past tobacco abuse N.p.o. initially - then clear liquid diet, now on gastroparesis diet which he is tolerating well currently no abdominal pain, nausea vomiting +having bowel movements Discussed with GI -recommend outpatient follow-up as already scheduled in [place] to adjust gastric pacer DVT prophylaxis. Heparin subcu Full code Total Time Total Time Spent Total Time Spent (In Minutes): 35 Discharge Plan Discharge Items Patient Disposition: Home - Self-Care Reason For Visit: HTN CRISIS Discharge Diagnosis: Nausea, vomiting, in the setting of gastric gastroparesis Activity: Per Instructions section Non-emergency contact: Primary Care Provider Call non-emergency contact if: you have any medication questions and your symptoms worsen Follow-up/Referrals: Juan Lamb MD [Primary Care Provider] - (Date & Time 02/13/2021 8:20 AM Provider Bryan Monet PA-C Department [facility] ) Diet: Low Fiber and Low Fat Diet Comment: Eat more frequently, in small portions, gastroparesis diet Addtl Attending Provider Instructions: Make sure to follow-up with your physician in [place] for your gastric pacer adjustment tomorrow, February 07. Your PET scan was rescheduled for February 08. Follow-up with your primary care doctor, the appointment was scheduled for you for February 13. Your appointment with oncology was scheduled for you for February 17. Pending Studies at Discharge: No Stand-Alone Forms: [facility], Smoking Cessation Medications and DC Order Prescriptions: Continued clonidine [Sbphbico-UXU-0] 0.2 mg/24 hr patch weekly 1 patch transdermal WK RF: 0 fluticasone propion-salmeterol [Wixela Inhub] 250-50 mcg/dose Blister With Device 1 inh INHALATION BID RF: 0 escitalopram oxalate [Lexapro] 10 mg Tablet 10 mg PO QAM RF: 0 amlodipine [Norvasc] 5 mg Tablet 5 mg PO QAM Qty: 30 RF: 0 levetiracetam [Keppra] 750 mg tablet 750 mg PO BID 30 Days Qty: 60 RF: 1 multivitamin Tablet 1 tab PO QAM RF: 0 pantoprazole [Protonix] 40 mg tablet,delayed release (DR/EC) 40 mg PO QAM RF: 0 epinephrine [EpiPen] 0.3 mg/0.3 mL Auto-Injector 0.3 mg IM Q3H PRN (Reason: Allergic Reaction) RF: 0 albuterol sulfate [Ventolin HFA] 90 mcg/actuation Hfa Aerosol Inhaler 2 puff INHALATION Q4H PRN (Reason: Shortness Of Breath) RF: 0 Humalog U-100 Insulin 100 unit/mL Cartridge 1 sliding scale dose SUBCUT UD RF: 0 Basaglar KwikPen U-100 Insulin 100 unit/mL (3 mL) Insulin Pen 7 unit SUBCUT HS RF: 0 ondansetron 8 mg Tablet,Disintegrating 8 mg PO Q8H PRN (Reason: Nausea) RF: 0 cyclobenzaprine 5 mg Tablet 5 mg PO TID PRN (Reason: Muscle Spasm) RF: 0 morphine [MS Contin] 30 mg tablet extended release 30 mg PO Q12H Qty: 10 RF: 0 sucralfate [Carafate] 1 gram tablet 1 g PO QID RF: 0 magnesium oxide [MagOx] 400 mg (241.3 mg magnesium) tablet 400 mg PO BID RF: 0 gabapentin [Neurontin] 100 mg capsule 100 mg PO TID RF: 0 metoclopramide HCl [Reglan] 10 mg tablet 10 mg PO ACHS RF: 0 oxycodone [Roxicodone] 5 mg tablet 5 mg PO Q4H PRN (Reason: severe pain) RF: 0 Advanced Probiotic 625 mg (10 billion cell) capsule 1 cap PO BID RF: 0 Discharge Orders: Discharge Order (Routine); Ordered 02/06/21 Ordered By: Lorne Segal Admission Data Admit Date/Time: 02/04/21 00:38 Attending Provider: Lorne Segal Admit Provider: Darian Chinchilla Primary Care Provider: Juan Lamb Other Providers: Darian Chinchilla ; Jani Daniel ; Saba Nam ; Saleem Mendez ; Nicolle Mccormack ; Alfredito Major ; Marli Chaves ; Mahesh Avila ; Ilir Ballard ; Tiffanie Garcia ; Catalina Demarco ; Peggy Mathews ; Malia James ; Adalberto Varma
[2021-02-06] MEDS: oxyCODONE HCL IR 5 MG TAB (IMMEDIATE RELEASE) PO PRN (13:53)
[2021-02-07 20:27] LABS: Codeine Urine NEGATIVE ng/mL (<50); Hydrocodone Urine NEGATIVE ng/mL (<50); Hydromor Urine 65 ng/mL (<50); Morphine Urine 8560 ng/mL (<50); Norhydrocodone Conf Ur NEGATIVE ng/mL (<50); Noroxycodone Urine NEGATIVE ng/mL (<50); Oxycodone Urine NEGATIVE ng/mL (<50); Oxymorph Urine 234 ng/mL (<50)
== END 2021-02-06 15:00 | disposition home or self-care (01) ==
LOC: ED 17:02 → EDINP 17:02 → 2N 02-04 03:53

== ENCOUNTER 2021-02-11 20:14 | Inpatient (IN) ==
--- NOTE | 2021-02-11 21:36 | Emergency Department Note ---
Impression & Plan Intractable nausea and vomiting, Hypertension, Chronic pain ED Provider Note NAME: NIKHIL MARTINS AGE: 55 SEX: M : 1965 ARRIVES VIA: Walk-In INFORMANT: Patient, ED PROVIDER(S): Meliton Griffin MD Chief Complaint: Nausea vomiting HPI: Patient does present with concern for nausea vomiting. Is been ongoing for the last 1 to 2 days although it is somewhat chronic in nature though acutely worse. The patient does complain of upper abdominal pain that he describes as cramping in nature. Nonradiating. Patient has any fevers chills chest pains or shortness of breath. The patient does use a walker at baseline. No recent falls. Patient states that his vomiting is gotten worse. No reported blood in the vomit. Patient denies any alcohol tobacco or drug use. Patient is vaccinated for Covid. ROS: See HPI for pertinent positives and negatives. A total of 10 systems were reviewed and otherwise negative. Past medical history: See below Surgical history: See below Social history: See below Physical Exam: GENERAL: [place] ill in appearance, NAD, [wearing a mask,] non-toxic. EYE EXAM: Normal conjunctiva. PERRL, no anisocoria and EOM's grossly intact w/o pain. NECK: Supple, no nuchal rigidity, no adenopathy, non-tender. No signs of meningismus. LUNGS: Clear to auscultation. Normal chest wall mechanics. HEART: NSR, no MRG. ABDOMEN: Abdomen soft, non-tender, normo-active bowel sounds, no masses, no rebound or guarding. BACK: No CVA TTP. SKIN: No rashes and no bruising. UPPER EXTREMITIES: Upper extremities are grossly normal. LOWER EXTREMITIES: Grossly normal, no edema. NEURO EXAM: A&O x3, cranial nerves II-XII grossly intact, normal speech, moves all 4 extremities on command w/o issue. Differential diagnoses: Gastroenteritis, food borne illness, infections, appendicitis, diverticulitis, inflammatory bowel disease, obstruction, GI bleed, biliary pathology, volvulus, as well as other pathologies. Course: Patient was seen and evaluated the bedside. Full history physical exam was performed. [EKG interpreted by me] Normal sinus rhythm, rate of 90, normal intervals, left axis deviation, no ST changes or T WI. Imaging Studies: See Below [Cardiac monitoring: An order was placed for continuous cardiac monitoring. The monitor shows a rate of 75 with sinus rhythm.] MDM: Patient did present with concern for nausea vomiting. Blood work is obtained. The patient's blood work does show anemia. Patient does have chronic kidney dysfunction. The patient does have hyperglycemia. Patient was given IV fluids. Patient is given several rounds of antiemetics which did not improve his symptoms. I did speak the on-call hospitalist Dr. Bear and the patient was admitted to medicine service. 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 One 1 mm polyp in the ascending colon resected. One benign appearing 1 mm polyp in the rectum resected. Internal hemorrhoids; Dr. Demarco" H/O esophagogastroduodenoscopy "01/26/2015- LA Grade B reflux esophagitis, gastritis; Dr. Major" History of cholecystectomy History of tonsillectomy and adenoidectomy Hx of total knee arthroplasty S/P lobectomy of lung "left upper lobectomy for adenoCa" On 08/05/16 16:30 Edie Mcfarland wrote "L side @ [facility] 05/25/16" Status post insertion of intrathecal pump explanted Family History Other Family history non-contributory Social History Smoking Status: Former smoker Tobacco Type: Cigarettes Second Hand Exposure: No; Hx Alcohol Use: No Hx Substance Use: Yes Last Used Substance: Just Prior to Arrival Last Used Substance Other:: Four hours ago Substance Use Type Other:: Currenlty denies Preferred Language: [place] Communication Ability: 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: No Beliefs That Will Affect Care: Mu-Ism Mu-Ism Beliefs: YAZIDI marital status: Single Current Living Situation: Alone How many Children do You have: 5 Other Information That Helps Us Care for You: No Feels Safe at Home: Yes Safety Concerns: Feels Safe At This Time Assistive Devices: Cane, Special Shoe and Walker Assistive Devices Comment: WALKER` Allergies Allergies Allergy/AdvReac Type Severity Reaction Status Date / Time bee venom protein (honey bee) Allergy Mild SWELLING Verified 02/12/21 01:06 AT SITE, SOB Penicillins Allergy Unknown "SINCE Verified 02/12/21 01:06 "-Amoxicillin blue dye Allergy Unknown Verified 02/12/21 01:06 cat dander Allergy Unknown Verified 02/12/21 01:06 red (food color) Allergy Unknown Verified 02/12/21 01:06 red dye Allergy Unknown Verified 02/12/21 01:06 Home Meds Home Medications Medication Instructions Recorded Confirmed albuterol sulfate 90 mcg/actuation 2 puff INHALATION Q4H PRN 05/05/18 02/12/21 aerosol inhaler (Ventolin HFA) epinephrine 0.3 mg/0.3 mL 0.3 mg IM Q3H PRN 05/05/18 02/12/21 injection, auto-injector (EpiPen) insulin glargine 100 unit/mL (3 7 unit SUBCUT HS 05/05/18 02/12/21 mL) subcutaneous pen (Basaglar KwikPen U-100 Insulin) insulin lispro 100 unit/mL 1 sliding scale dose SUBCUT UD 05/05/18 02/12/21 subcutaneous cartridge (Humalog U-100 Insulin) multivitamin 1 tab PO QAM 05/05/18 02/12/21 pantoprazole 40 mg tablet,delayed 40 mg PO QAM 05/05/18 02/12/21 release (Protonix) clonidine 0.2 mg/24 hr weekly 1 patch TRANSDERMAL WK 01/23/20 02/12/21 transdermal patch (Ahrciyjs-BWS-4) escitalopram oxalate 10 mg tablet 10 mg PO QAM 01/24/20 02/12/21 (Lexapro) fluticasone 250 mcg-salmeterol 50 1 inh INHALATION BID 01/24/20 02/12/21 mcg/dose blistr powdr for inhalation (Wixela Inhub) cyclobenzaprine 5 mg tablet 5 mg PO TID PRN 12/20/20 02/12/21 ondansetron 8 mg disintegrating 8 mg PO Q8H PRN 12/20/20 02/12/21 tablet L.acidop,casei,lactis,rham-B.lact,jose 1 cap PO BID 01/22/21 02/12/21 625 mg (10 billion cell) capsule (Advanced Probiotic) gabapentin 100 mg capsule 100 mg PO TID 01/22/21 02/12/21 (Neurontin) magnesium oxide 400 mg (241.3 mg 400 mg PO BID 01/22/21 02/12/21 magnesium) tablet (MagOx) metoclopramide HCl 10 mg tablet 10 mg PO ACHS 01/22/21 02/12/21 (Reglan) oxycodone 5 mg tablet (Roxicodone) 5 mg PO Q4H PRN 01/22/21 02/12/21 sucralfate 1 gram tablet (Carafate) 1 g PO QID 01/22/21 02/12/21 Previous Rx's Medication Instructions Recorded amlodipine 5 mg tablet (Norvasc) 5 mg PO QAM #30 tab 01/29/20 levetiracetam 750 mg tablet 750 mg PO BID 30 Days #60 tab 01/29/20 (Keppra) morphine 30 mg tablet,extended 30 mg PO Q12H #10 tab 12/29/20 release (MS Contin) Results & Data (ED) Vital Signs Vital Signs - 24 hr 02/11/21 20:20 02/11/21 21:55 02/11/21 22:30 Temperature 36.9 C Temperature Source Oral Pulse Rate 99 H Pulse Rate [Finger] 91 H 92 H Respiratory Rate 18 18 20 Respiratory Depth Normal Blood Pressure 164/104 H Blood Pressure [Right Arm] 246/136 H 245/140 H Blood Pressure Mean 124 Blood Pressure Mean [Right Arm] 172 175 Pulse Oximetry 96 100 98 Oxygen Delivery Method Room Air Room Air Room Air Sepsis Recent Fever Within 48 Hours No Sepsis New/Unexplained Change in Mental Status N/A Sepsis Action Taken by Nursing No Action Required 02/11/21 23:31 02/12/21 00:31 02/12/21 01:00 Temperature Temperature Source Pulse Rate Pulse Rate [Finger] 103 H 92 H 90 Respiratory Rate 18 18 20 Respiratory Depth Blood Pressure Blood Pressure [Right Arm] 223/106 H 214/112 H 212/116 H Blood Pressure Mean Blood Pressure Mean [Right Arm] 145 146 148 Pulse Oximetry 100 98 98 Oxygen Delivery Method Room Air Room Air Room Air Sepsis Recent Fever Within 48 Hours Sepsis New/Unexplained Change in Mental Status Sepsis Action Taken by Nursing 02/12/21 01:30 Temperature Temperature Source Pulse Rate Pulse Rate [Finger] 93 H Respiratory Rate 20 Respiratory Depth Blood Pressure Blood Pressure [Right Arm] 187/114 H Blood Pressure Mean Blood Pressure Mean [Right Arm] 138 Pulse Oximetry 100 Oxygen Delivery Method Room Air Sepsis Recent Fever Within 48 Hours Sepsis New/Unexplained Change in Mental Status Sepsis Action Taken by Prison Medications Current Medication List: was personally reviewed by me Laboratory Data Attestation: I reviewed the patient's lab results. Result diagrams: 02/12/21 06:04 02/12/21 06:04 Lab Results 02/11/21 02/11/21 02/12/21 Range/Units 21:45 21:45 00:50 WBC 5.80 (4.8-10.8) K/uL RBC 3.80 L (4.7-6.1) M/uL Hgb 11.0 L (14.0-18.0) g/dL Hct 32.2 L (42-52) % MCV 84.7 (80-100) fL MCH 28.9 (25-34) pg MCHC 34.2 (32-36) g/dL RDW Std Deviation 41.5 (36.4-46.3) fL RDW Coeff of Rik 13.4 (11.5-14.5) % Plt Count 284 (130-400) K/uL MPV 10.1 (7.4-10.4) fL Immature Gran % (Auto) 0.3 % Neut % (Auto) 66.8 % Lymph % (Auto) 21.7 % [place] % (Auto) 9.7 % Eos % (Auto) 1.2 % Baso % (Auto) 0.3 % Neut # (Auto) 3.87 (1.4-6.5) K/uL Lymph # (Auto) 1.26 (1.2-3.4) K/uL [place] # (Auto) 0.56 (0.11-0.59) K/uL Eos # (Auto) 0.07 (0-0.5) K/uL Baso # (Auto) 0.02 (0-0.2) K/uL Immature Gran # (Auto) 0.02 (0.00-0.02) K/uL Sodium 134 L (136-145) mmol/L Potassium 4.6 (3.5-5.1) mmol/L Chloride 99 (98-107) mmol/L Carbon Dioxide 28 (21-32) mmol/L Anion Gap 7.0 (3-11) BUN 27 H (7-18) mg/dl Creatinine 3.26 H (0.6-1.4) mg/dl Est Cr Clr Drug Dosing 24.8 ml/min Est GFR ( Amer) 23.4 ml/min Est GFR (Non-Af Amer) 20.2 ml/min BUN/Creatinine Ratio 8.1 L (10-20) Glucose 349 H* (70-99) mg/dl Calcium 9.0 (8.5-10.1) mg/dl Magnesium 1.6 L (1.8-2.4) mg/dl Total Bilirubin 0.3 (0.2-1) mg/dl AST 13 L (15-37) U/L ALT 24 (12-78) U/L Alkaline Phosphatase 151 H (45-117) U/L Total Protein 7.8 (6.4-8.2) gm/dl Albumin 2.8 L (3.4-5.0) gm/dl Globulin 5.0 H (2.5-4.0) gm/dl Albumin/Globulin Ratio 0.6 L (0.9-2) Lipase 46 L (73-393) U/L Beta-Hydroxybutyric Acd 7.18 H (0.2-2.81) mg/dl COVID-19 Eval Order Covid19 [facility] SARS-CoV-2, RNA, NAAT (NEGATIVE) 02/12/21 Range/Units 00:50 WBC (4.8-10.8) K/uL RBC (4.7-6.1) M/uL Hgb (14.0-18.0) g/dL Hct (42-52) % MCV (80-100) fL MCH (25-34) pg MCHC (32-36) g/dL RDW Std Deviation (36.4-46.3) fL RDW Coeff of Rik (11.5-14.5) % Plt Count (130-400) K/uL MPV (7.4-10.4) fL Immature Gran % (Auto) % Neut % (Auto) % Lymph % (Auto) % [place] % (Auto) % Eos % (Auto) % Baso % (Auto) % Neut # (Auto) (1.4-6.5) K/uL Lymph # (Auto) (1.2-3.4) K/uL [place] # (Auto) (0.11-0.59) K/uL Eos # (Auto) (0-0.5) K/uL Baso # (Auto) (0-0.2) K/uL Immature Gran # (Auto) (0.00-0.02) K/uL Sodium (136-145) mmol/L Potassium (3.5-5.1) mmol/L Chloride (98-107) mmol/L Carbon Dioxide (21-32) mmol/L Anion Gap (3-11) BUN (7-18) mg/dl Creatinine (0.6-1.4) mg/dl Est Cr Clr Drug Dosing ml/min Est GFR ( Amer) ml/min Est GFR (Non-Af Amer) ml/min BUN/Creatinine Ratio (10-20) Glucose (70-99) mg/dl Calcium (8.5-10.1) mg/dl Magnesium (1.8-2.4) mg/dl Total Bilirubin (0.2-1) mg/dl AST (15-37) U/L ALT (12-78) U/L Alkaline Phosphatase (45-117) U/L Total Protein (6.4-8.2) gm/dl Albumin (3.4-5.0) gm/dl Globulin (2.5-4.0) gm/dl Albumin/Globulin Ratio (0.9-2) Lipase (73-393) U/L Beta-Hydroxybutyric Acd (0.2-2.81) mg/dl COVID-19 Eval Order SARS-CoV-2, RNA, NAAT NEGATIVE (NEGATIVE) Administered Medications Amlodipine Besylate (Amlodipine Besylate 5 Mg Tab) 5 mg PO QAM DAMIR Stop: 03/14/21 08:59 Last Admin: 02/12/21 08:15 Dose: 5 mg Documented by: [id number] Escitalopram Oxalate (Escitalopram Oxalate 10 Mg Tab) 10 mg PO QAM DAMIR Stop: 03/14/21 08:59 Last Admin: 02/12/21 08:14 Dose: 10 mg Documented by: [id number] Fluticasone/Vilanterol (Fluticasone/Vilanterol 200/25mcg 14 Puffs/Inhaler) 1 puffs INH DAILY DAMIR Stop: 03/14/21 08:59 Last Admin: 02/12/21 08:15 Dose: 1 puffs Documented by: [id number] Gabapentin (Gabapentin 100 Mg Cap) 100 mg PO TID DAMIR Stop: 03/14/21 08:59 Last Admin: 02/12/21 15:10 Dose: 100 mg Documented by: [id number] Admin: 02/12/21 08:14 Dose: 100 mg Documented by: [id number] Heparin Sodium (Porcine) (Heparin Sod 5,000 Unit/0.5 Ml Vial) 5,000 units SQ Q8 DAMIR Stop: 03/14/21 05:59 Last Admin: 02/12/21 15:09 Dose: 5,000 units Documented by: [id number] Admin: 02/12/21 06:18 Dose: 5,000 units Documented by: [id number] Insulin Aspart (Insulin Aspart 100 Units/Ml 3 Ml Pen) 0 units SC ACHS DAMIR Stop: 03/14/21 03:29 Last Admin: 02/12/21 17:10 Dose: 2 units Documented by: [id number] Cosigned by: [id number] Admin: 02/12/21 12:58 Dose: 7 units Documented by: [id number] Cosigned by: [id number] Admin: 02/12/21 08:20 Dose: 7 units Documented by: [id number] Cosigned by: [id number] Admin: 02/12/21 03:59 Dose: 9 units Documented by: [id number] Cosigned by: [id number] Lactobacillus Acidoph/Casei/Rhamnos (Advanced Probiotic 1250 Mg Capsule) 1 cap PO BID DAMIR Stop: 03/14/21 08:59 Last Admin: 02/12/21 08:14 Dose: 1 cap Documented by: [id number] Levetiracetam (Levetiracetam 250 Mg Tab) 750 mg PO BID DAMIR Stop: 03/14/21 08:59 Last Admin: 02/12/21 08:14 Dose: 750 mg Documented by: [id number] Miscellaneous (Check Clonidine Patch Placement) 1 ea N/A QS DAMIR Stop: 03/14/21 07:59 Last Admin: 02/12/21 16:41 Dose: 1 ea Documented by: [id number] Admin: 02/12/21 08:12 Dose: 1 ea Documented by: [id number] Morphine Sulfate (Morphine Sulfate Cr 15 Mg Tabcr) 30 mg PO BID DAMIR Stop: 02/26/21 08:59 Last Admin: 02/12/21 09:31 Dose: 30 mg Documented by: [id number] Multivitamins (Multivitamin Tab) 1 tab PO QAM DAMIR Stop: 03/14/21 08:59 Last Admin: 02/12/21 08:15 Dose: 1 tab Documented by: [id number] Oxycodone HCl (Oxycodone Hcl Ir 5 Mg Tab (Immediate Release)) 5 mg PO Q4H PRN PRN Reason: severe pain Stop: 02/26/21 02:27 Last Admin: 02/12/21 15:18 Dose: 5 mg Documented by: [id number] Pantoprazole Sodium (Pantoprazole 40 Mg Tab) 40 mg PO QAM DAMIR Stop: 03/14/21 08:59 Last Admin: 02/12/21 08:15 Dose: 40 mg Documented by: [id number] Sucralfate (Sucralfate 1 Gm Tab) 1 gm PO ACHS DAMIR Stop: 03/14/21 07:29 Last Admin: 02/12/21 17:10 Dose: 1 gm Documented by: [id number] Admin: 02/12/21 13:00 Dose: 1 gm Documented by: [id number] Admin: 02/12/21 08:10 Dose: 1 gm Documented by: [id number] Discontinued Medications Clonidine HCl (Clonidine Hcl 0.2 Mg/24 Hr Transderm Sys) 1 patch TD ONE STA Stop: 02/12/21 02:42 Last Admin: 02/12/21 03:58 Dose: 1 patch Documented by: [id number] Famotidine (Famotidine 20mg/5ml Iv Push) 20 mg IV ONE STA Stop: 02/12/21 00:25 Last Admin: 02/12/21 00:33 Dose: 20 mg Documented by: [id number] Hydralazine HCl (Hydralazine Hcl 20 Mg/Ml Vial) 10 mg IV NOW STA Stop: 02/12/21 02:33 Last Admin: 02/12/21 03:58 Dose: 10 mg Documented by: [id number] Sodium Chloride (Nss 1000ml) 1,000 mls @ 999 mls/hr IV .Q1H1M ONE Stop: 02/11/21 23:01 Last Infusion: 02/12/21 00:00 Dose: 0 mls/hr Documented by: [id number] Admin: 02/11/21 22:07 Dose: 999 mls/hr Documented by: [id number] Prochlorperazine 10 mg/ (Syringe) 10 mls @ 5 mls/min IV ONE ONE Stop: 02/11/21 22:47 Last Admin: 02/11/21 22:49 Dose: 5 mls/min Documented by: [id number] Haloperidol Lactate 5 mg/ (Sodium Chloride) 501 mls @ 1,002 mls/hr IV NOW STA Stop: 02/11/21 23:55 Last Infusion: 02/12/21 00:32 Dose: 0 mls/hr Documented by: [id number] Admin: 02/12/21 00:02 Dose: 1,002 mls/hr Documented by: [id number] Sodium Chloride (Nss 1000ml) 1,000 mls @ 999 mls/hr IV .Q1H1M ONE Stop: 02/12/21 01:43 Last Infusion: 02/12/21 01:55 Dose: 0 mls/hr Documented by: [id number] Admin: 02/12/21 00:54 Dose: 999 mls/hr Documented by: [id number] Magnesium Sulfate/Dextrose (Magnesium Sulfate / D5w) 1 gm in 100 mls @ 50 mls/hr IV ONE ONE Stop: 02/12/21 04:21 Last Infusion: 02/12/21 04:29 Dose: 0 mls/hr Documented by: [id number] Admin: 02/12/21 02:28 Dose: 50 mls/hr Documented by: [id number] Lactated Ringer's (Lr) 1,000 mls @ 80 mls/hr IV .[id number] ONE Stop: 02/12/21 14:56 Last Infusion: 02/12/21 16:42 Dose: 0 mls/hr Documented by: [id number] Admin: 02/12/21 03:58 Dose: 80 mls/hr Documented by: [id number] Fosaprepitant 150 mg/ Sodium (Chloride) 150 mls @ 300 mls/hr IV ONE ONE Stop: 02/12/21 03:29 Last Infusion: 02/12/21 04:29 Dose: 0 mls/hr Documented by: [id number] Admin: 02/12/21 03:58 Dose: 300 mls/hr Documented by: [id number] Insulin Glargine (Insulin Glargine Solostar 100 Units/Ml 3 Ml Pen) 5 units SC NOW STA Stop: 02/12/21 02:23 Last Admin: 02/12/21 03:58 Dose: 5 units Documented by: [id number] Cosigned by: [id number] Labetalol HCl (Labetalol Hcl Iv 5 Mg/Ml 20ml) 10 mg IV NOW STA Stop: 02/12/21 01:34 Last Admin: 02/12/21 01:43 Dose: 10 mg Documented by: [id number] Cosigned by: [id number] Metoclopramide HCl (Metoclopramide Hcl 10 Mg Tablet) 10 mg PO ACHS [facility] Stop: 03/14/21 07:29 Last Admin: 02/12/21 12:59 Dose: 10 mg Documented by: [id number] Admin: 02/12/21 08:10 Dose: 10 mg Documented by: [id number] Miscellaneous (Remove Clonidine Patch) 1 ea N/A CQWK DAMIR Stop: 03/14/21 02:29 Last Admin: 02/12/21 04:14 Dose: 1 ea Documented by: [id number] Ondansetron HCl (Ondansetron Inj 2 Mg/Ml 2 Ml Vial) 4 mg IV NOW STA Stop: 02/11/21 22:02 Last Admin: 02/11/21 22:06 Dose: 4 mg Documented by: [id number] Prochlorperazine (Prochlorperazine 5 Mg/Ml 2 Ml Vial) Confirm Administered Dose 10 mg .ROUTE .STK-MED ONE Stop: 02/11/21 22:49 Last Admin: 02/11/21 22:49 Dose: Not Given Documented by: [id number] Imaging Data Radiologist's Impression: Chest X-Ray 02/12/21 01:36 SINGLE VIEW CHEST CLINICAL HISTORY: Acute renal insufficiency. FINDINGS: An AP, portable, upright chest radiograph is compared to study dated 02/03/2021. Correlation is made with chest CT dated 12/20/2020. The cardiomediastinal silhouette is unremarkable. There is trace left pleural effusion. The lungs and pleural spaces are otherwise clear. No pneumothorax is seen. The bony thorax is grossly intact. Leads project over the left upper quadrant of the abdomen. IMPRESSION: Trace left pleural effusion is unchanged. ACT 112: Negative or not required by law. Electronically signed by: Russell Ty M.D. 02/12/2021 8:17 AM Discharge Plan Visit Data Chief Complaint: Vomiting Stated Complaint: NAUSEA,VOMING ED Provider: Meliton Griffin Discharge Problem: Intractable nausea and vomiting, Hypertension, Chronic pain Patient Disposition: Admitted As Inpatient Discharge Instructions Interventions: ED Discharge Assessment Last Done: 02/12/21 11:29
[2021-02-11 21:55] LABS: Basophils # (auto) 0.02 K/uL (0-0.2); Basophils % (auto) 0.3 %; Eosinophils # (auto) 0.07 K/uL (0-0.5); Eosinophils % (auto) 1.2 %; Hematocrit (blood only) 32.2 % (42-52); Immature Granulocytes # (auto) 0.02 K/uL (0.00-0.02); Immature Granulocytes % (auto) 0.3 %; Lymphocytes # (auto) 1.26 K/uL (1.2-3.4); Lymphocytes % (auto) 21.7 %; Mean Corpuscular Hemoglobin 28.9 pg (25-34); Mean Corpuscular Hgb Conc 34.2 g/dL (32-36); Mean Corpuscular Volume 84.7 fL (80-100); Mean Platelet Volume 10.1 fL (7.4-10.4); Monocytes # (auto) 0.56 K/uL (0.11-0.59); Monocytes % (auto) 9.7 %; Neutrophils # (auto) 3.87 K/uL (1.4-6.5); Neutrophils % (auto) 66.8 %; Platelet Count 284 K/uL (130-400); RDW Coefficient of Variation 13.4 % (11.5-14.5); RDW Standard Deviation 41.5 fL (36.4-46.3)
[2021-02-11] MEDS ORDERED: SODIUM CHLORIDE 0.9% 1000ML 1,000 ML IV ONE (22:01)
[2021-02-11] MEDS ORDERED: ONDANSETRON INJ 2 MG/ML 2 ML VIAL IV STA (22:01)
[2021-02-11 22:22] LABS: Albumin Globulin Ratio 0.6 (0.9-2); Albumin Level 2.8 gm/dl (3.4-5.0); BUN Creatinine Ratio 8.1 (10-20); Bilirubin,Total 0.3 mg/dl (0.2-1); Creatinine Clr Calc Pharmacy 24.8 ml/min; Est GFR (African American) 23.4 ml/min; Est GFR (Non-African American) 20.2 ml/min; Magnesium 1.6 mg/dl (1.8-2.4); Potassium 4.6 mmol/L (3.5-5.1); Total Protein 7.8 gm/dl (6.4-8.2)
[2021-02-11] MEDS ORDERED: PROCHLORPERAZINE 10 MG in SYRINGE 8 ML IV ONE (22:46)
[2021-02-11 22:47] LABS: Beta-Hydroxybutyrate 7.18 mg/dl (0.2-2.81)
[2021-02-11] MEDS ORDERED: PROCHLORPERAZINE 5 MG/ML 2 ML VIAL ONE (22:48)
[2021-02-11] MEDS ORDERED: HALOPERIDOL LACTATE 5 MG in SODIUM CHLORIDE 0.9% 500 ML IV STA (23:26)
[2021-02-12] MEDS ORDERED: FAMOTIDINE 20MG/5ML IV PUSH IV STA (00:24)
[2021-02-12] MEDS ORDERED: SODIUM CHLORIDE 0.9% 1000ML 1,000 ML IV ONE (00:43)
[2021-02-12] MEDS ORDERED: LABETALOL HCL IV 5 MG/ML 20ML IV STA (01:33)
[2021-02-12] MEDS ORDERED: INSULIN GLARGINE SOLOSTAR 100 UNITS/ML 3 ML PEN SC STA (02:22)
[2021-02-12] MEDS ORDERED: MAGNESIUM SULFATE / D5W 1 GM/100 ML BAG IV ONE (02:22)
[2021-02-12] MEDS ORDERED: LACTATED RINGER'S 1,000 ML IV ONE (02:27)
[2021-02-12] MEDS ORDERED: PROMETHAZINE HCL 12.5 MG in SODIUM CHLORIDE 0.9% 50 ML IV PRN (02:28)
[2021-02-12] MEDS ORDERED: hydrALAZINE HCL 20 MG/ML VIAL IV STA (02:32)
--- NOTE | 2021-02-12 02:33 | History & Physical Report ---
Date of Service February 12, 2021 Assessment & Plan (1) Asymptomatic hypertensive urgency: Plan: Secondary to protracted/recurrent gastroparesis attacks History gastroparesis status post gastric pacemaker Patient chronic narcotic medications complicating bowel motility issues. Patient refusing further imaging citing abdominal pain as bad as last admission. ARF on CRI secondary to illness DM1, suboptimal control as of recent hemoglobin A1c of 11.4 last December 2020 Metastatic NSCLC, status post surgery, incomplete chemotherapy secondary to intolerance, patient to follow-up with oncologist with note of osseous metastasis on left nine rib on recent outpatient PET scan Seizure disorder, stable on maintenance AED tx chronic anemia, hemoglobin better than baseline likely secondary to hemoconcentration Past tobacco abuse OBS PCU Labetalol one dose now Emend trial Facilitate home BP meds Baseline UA, monitor creatinine response to IV fluids GI consult Re: Recurrent gastroparesis attacks Judicious narcotic use Patient counseled about adverse effects of narcotics on bowel motility. Pain management consultation recommended to wean down/off narcotic medications if patient amenable. Basal insulin adjusted clear liquid diet for now, ISS BG goal 110-140 DVT prophylaxis. Heparin subcu Full code Text document was generated using SNADEC voice recognition software. It may contain grammatical or spelling errors. Kindly contact undersigned for clarification of any documentation item in question. History of Present Illness Chief Complaint: Abdominal pain, nausea, vomiting Primary Care Provider: Juan Lamb MD History obtained from patient and records. Medical history significant for COPD, metastatic NSCLC status post surgery, incomplete chemotherapy secondary to intolerance, IBD, gastroparesis status post gastric pacemaker, chronic pain on narcotics, HTN, DM1, DM neuropathy, past tobacco abuse, CRI (baseline creatinine 2), chronic anemia (baseline hemoglobin 9), seizure disorder as per records, hx neurogenic bladder as per records. Multiple admissions since December 2020 for abdominal pain, nausea vomiting attributed to gastroparesis. Most recent confinement 02/04-02/06/2021. Patient advised to follow-up with [place] surgeon for gastric pacer check. Patient still had abdominal discomfort albeit tolerable upon leaving the hospital. Patient seen at [facility] provider office 02/08. Gastric pacemaker settings adjusted as per patient. Patient however told that it "would take some time for things to kick in." Patient subsequently noted worsening of generalized abdominal discomfort associated with nausea, emesis. Pain is worse as the last admission as per patient. Patient denies chest pain, S OB, headache symptoms. Moving his bowels good. SBP 240s upon arrival at the ER. Medical History as above Surgical History : Knee surgery, thorascopy, lymphadenectomy, lung lobectomy, tonsillectomy/adenoidectomy Family History : Lung cancer, diabetes, renal cell carcinoma Personal/Social history : Past tobacco abuse, no EtOH intake, disabled Allergies Allergy/AdvReac Type Severity Reaction Status Date / Time bee venom protein (honey bee) Allergy Mild SWELLING Verified 02/12/21 01:06 AT SITE, SOB Penicillins Allergy Unknown "SINCE Verified 02/12/21 01:06 "-Amoxicillin blue dye Allergy Unknown Verified 02/12/21 01:06 cat dander Allergy Unknown Verified 02/12/21 01:06 red (food color) Allergy Unknown Verified 02/12/21 01:06 red dye Allergy Unknown Verified 02/12/21 01:06 Home Medications Medication Instructions Recorded Confirmed Type albuterol sulfate 90 mcg/actuation 2 puff INHALATION Q4H PRN 05/05/18 02/12/21 History aerosol inhaler (Ventolin HFA) epinephrine 0.3 mg/0.3 mL 0.3 mg IM Q3H PRN 05/05/18 02/12/21 History injection, auto-injector (EpiPen) insulin glargine 100 unit/mL (3 7 unit SUBCUT HS 05/05/18 02/12/21 History mL) subcutaneous pen (Basaglar KwikPen U-100 Insulin) insulin lispro 100 unit/mL 1 sliding scale dose SUBCUT UD 05/05/18 02/12/21 History subcutaneous cartridge (Humalog U-100 Insulin) multivitamin 1 tab PO QAM 05/05/18 02/12/21 History pantoprazole 40 mg tablet,delayed 40 mg PO QAM 05/05/18 02/12/21 History release (Protonix) clonidine 0.2 mg/24 hr weekly 1 patch TRANSDERMAL WK 01/23/20 02/12/21 History transdermal patch (Xozxqbpc-OQO-1) escitalopram oxalate 10 mg tablet 10 mg PO QAM 01/24/20 02/12/21 History (Lexapro) fluticasone 250 mcg-salmeterol 50 1 inh INHALATION BID 01/24/20 02/12/21 History mcg/dose blistr powdr for inhalation (Wixela Inhub) amlodipine 5 mg tablet (Norvasc) 5 mg PO QAM #30 tab 01/29/20 02/12/21 Rx levetiracetam 750 mg tablet 750 mg PO BID 30 Days #60 tab 01/29/20 02/12/21 Rx (Keppra) cyclobenzaprine 5 mg tablet 5 mg PO TID PRN 12/20/20 02/12/21 History ondansetron 8 mg disintegrating 8 mg PO Q8H PRN 12/20/20 02/12/21 History tablet morphine 30 mg tablet,extended 30 mg PO Q12H #10 tab 12/29/20 02/12/21 Rx release (MS Contin) L.acidop,casei,lactis,rham-B.lact,jose 1 cap PO BID 01/22/21 02/12/21 History 625 mg (10 billion cell) capsule (Advanced Probiotic) gabapentin 100 mg capsule 100 mg PO TID 01/22/21 02/12/21 History (Neurontin) magnesium oxide 400 mg (241.3 mg 400 mg PO BID 01/22/21 02/12/21 History magnesium) tablet (MagOx) metoclopramide HCl 10 mg tablet 10 mg PO ACHS 01/22/21 02/12/21 History (Reglan) oxycodone 5 mg tablet (Roxicodone) 5 mg PO Q4H PRN 01/22/21 02/12/21 History sucralfate 1 gram tablet (Carafate) 1 g PO QID 01/22/21 02/12/21 History Past Med/Surg History Medical History Acute dyspnea Acute hyponatremia Acute renal insufficiency IVAN (acute kidney injury) Anemia Chest pain No current chest pain...related to reflux per patient Chronic pain COPD (chronic obstructive pulmonary disease) Diabetes mellitus type 2, uncontrolled Diabetic autonomic neuropathy Diabetic peripheral neuropathy Discharge planning issues DVT prophylaxis Elevated d-dimer Gastroparesis "s/p gastric stimulator" Hypertension Hypomagnesemia Intractable nausea and vomiting 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 One 1 mm polyp in the ascending colon resected. One benign appearing 1 mm polyp in the rectum resected. Internal hemorrhoids; Dr. Demarco" H/O esophagogastroduodenoscopy "01/26/2015- [place] Grade B reflux esophagitis, gastritis; Dr. Major" History of cholecystectomy History of tonsillectomy and adenoidectomy Hx of total knee arthroplasty S/P lobectomy of lung "left upper lobectomy for adenoCa" On 08/05/16 16:30 Edie Mcfarland wrote "L side @ [facility] 05/25/16" Status post insertion of intrathecal pump explanted Family History Other Family history non-contributory Social History Smoking Status: Former smoker Tobacco Type: Cigarettes Second Hand Exposure: No; Hx Alcohol Use: No Hx Substance Use: Yes Last Used Substance: Just Prior to Arrival Last Used Substance Other:: Four hours ago Substance Use Type Other:: Currenlty denies Preferred Language: Gabonese Communication Ability: Effective Master Steam Yacht Required: No Beliefs That Will Affect Care: Spiritism Spiritism Beliefs: RELIGION marital status: Single Current Living Situation: Alone How many Children do You have: 5 Other Information That Helps Us Care for You: No Feels Safe at Home: Yes Safety Concerns: Feels Safe At This Time Assistive Devices: Cane, Special Shoe and Walker Assistive Devices Comment: JESSICA` Review of Systems Review of Systems: As per HPI, all 10 systems reviewed, all other ROS negative Physical Exam Physical Exam: GENERAL: uncomfortable, no respiratory distress, lying down on the left lateral decubitus position SKIN: Pallor, warm HEENT: Partial alopecia, pale palpebral conjunctivae, no ptosis, dry buccal mucosa NECK : Supple, no tenderness CHEST : Decreased breath sounds, no tenderness HEART : RRR, no obvious murmurs ABDOMEN: Some distention, central abdominal tenderness EXTREMITIES : No LE swelling/tenderness, no other conspicuous deformities noted NEUROLOGIC : Coherent, no facial asymmetry, no other gross focality Results & Data Results & Data ([facility]) Vital Signs (Past 12 Hours) Vital Signs Temp Pulse Pulse Resp BP BP Pulse Ox 02/12/21 02:30 86 18 201/119 H 99 02/12/21 01:30 93 H 20 187/114 H 100 02/12/21 01:00 90 20 212/116 H 98 02/12/21 00:31 92 H 18 214/112 H 98 02/11/21 23:31 103 H 18 223/106 H 100 02/11/21 22:30 92 H 20 245/140 H 98 02/11/21 21:55 91 H 18 246/136 H 100 02/11/21 20:20 36.9 C 99 H 18 164/104 H 96 Laboratory Results Laboratory Results WBC 5.80 K/uL (4.8-10.8) 02/11/21 21:45 RBC 3.80 M/uL (4.7-6.1) L 02/11/21 21:45 Hgb 11.0 g/dL (14.0-18.0) L 02/11/21 21:45 Hct 32.2 % (42-52) L 02/11/21 21:45 MCV 84.7 fL (80-100) 02/11/21 21:45 MCH 28.9 pg (25-34) 02/11/21 21:45 MCHC 34.2 g/dL (32-36) 02/11/21 21:45 RDW Std Deviation 41.5 fL (36.4-46.3) 02/11/21 21:45 RDW Coeff of Rik 13.4 % (11.5-14.5) 02/11/21 21:45 Plt Count 284 K/uL (130-400) 02/11/21 21:45 MPV 10.1 fL (7.4-10.4) 02/11/21 21:45 Immature Gran % (Auto) 0.3 % 02/11/21 21:45 Neut % (Auto) 66.8 % 02/11/21 21:45 Lymph % (Auto) 21.7 % 02/11/21 21:45 Saunders % (Auto) 9.7 % 02/11/21 21:45 Eos % (Auto) 1.2 % 02/11/21 21:45 Baso % (Auto) 0.3 % 02/11/21 21:45 Neut # (Auto) 3.87 K/uL (1.4-6.5) 02/11/21 21:45 Lymph # (Auto) 1.26 K/uL (1.2-3.4) 02/11/21 21:45 Saunders # (Auto) 0.56 K/uL (0.11-0.59) 02/11/21 21:45 Eos # (Auto) 0.07 K/uL (0-0.5) 02/11/21 21:45 Baso # (Auto) 0.02 K/uL (0-0.2) 02/11/21 21:45 Immature Gran # (Auto) 0.02 K/uL (0.00-0.02) 02/11/21 21:45 Sodium 134 mmol/L (136-145) L 02/11/21 21:45 Potassium 4.6 mmol/L (3.5-5.1) 02/11/21 21:45 Chloride 99 mmol/L (98-107) 02/11/21 21:45 Carbon Dioxide 28 mmol/L (21-32) 02/11/21 21:45 Anion Gap 7.0 (3-11) 02/11/21 21:45 BUN 27 mg/dl (7-18) H 02/11/21 21:45 Creatinine 3.26 mg/dl (0.6-1.4) H 02/11/21 21:45 Est Cr Clr Drug Dosing 24.8 ml/min 02/11/21 21:45 Est GFR ( Amer) 23.4 ml/min 02/11/21 21:45 Est GFR (Non-Af Amer) 20.2 ml/min 02/11/21 21:45 BUN/Creatinine Ratio 8.1 (10-20) L 02/11/21 21:45 Glucose 349 mg/dl (70-99) H* 02/11/21 21:45 Calcium 9.0 mg/dl (8.5-10.1) 02/11/21 21:45 Magnesium 1.6 mg/dl (1.8-2.4) L 02/11/21 21:45 Total Bilirubin 0.3 mg/dl (0.2-1) 02/11/21 21:45 AST 13 U/L (15-37) L 02/11/21 21:45 ALT 24 U/L (12-78) 02/11/21 21:45 Alkaline Phosphatase 151 U/L (45-117) H 02/11/21 21:45 Total Protein 7.8 gm/dl (6.4-8.2) 02/11/21 21:45 Albumin 2.8 gm/dl (3.4-5.0) L 02/11/21 21:45 Globulin 5.0 gm/dl (2.5-4.0) H 02/11/21 21:45 Albumin/Globulin Ratio 0.6 (0.9-2) L 02/11/21 21:45 Lipase 46 U/L (73-393) L 02/11/21 21:45 Beta-Hydroxybutyric Acd 7.18 mg/dl (0.2-2.81) H 02/11/21 21:45 [facility] 02/12/21 00:50 SARS-CoV-2, RNA, NAAT NEGATIVE (NEGATIVE) 02/12/21 00:50 Diagnostic Findings Chest x-ray as per my interpretation atelectasis EKG as per my interpretation : Rate 90, NSR, normal axis, septal infarct Code Status & VTE Plan VTE Prophylaxis Plan VTE Prophylaxis will be ordered: Yes
[2021-02-12] MEDS ORDERED: FOSAPREPITANT DIMEGLUMINE 150 MG in SODIUM CHLORIDE 0.9% 145 ML IV ONE (03:00)
[2021-02-12] MEDS ORDERED: ACETAMINOPHEN 325 MG TAB PO PRN (03:04)
[2021-02-12] MEDS ORDERED: GLUCAGON FOR INJ 1 MG VIAL SQ PRN (03:04)
[2021-02-12] MEDS ORDERED: DEXTROSE 50% 50 ML SYRINGE IV PRN (03:04)
[2021-02-12] MEDS ORDERED: GLUCOSE 40% GEL 15 GM TUBE PO PRN (03:04)
[2021-02-12] MEDS ORDERED: GLUCOSE 10 TABS/TUBE PO PRN (03:04)
[2021-02-12] MEDS ORDERED: CARBOHYDRATES FOR HYPOGLYCEMIA PO PRN (03:04)
[2021-02-12] MEDS: INSULIN ASPART 100 UNITS/ML 3 ML PEN SC SCH ×5 (03:59→21:39)
[2021-02-12] MEDS: HEPARIN SOD 5,000 UNIT/0.5 ML VIAL SQ SCH ×3 (06:18→21:38)
[2021-02-12 06:29] LABS: Basophils # (auto) 0.01 K/uL (0-0.2); Basophils % (auto) 0.1 %; Hematocrit (blood only) 28.6 % (42-52); Hemoglobin 9.7 g/dL (14.0-18.0); Immature Granulocytes # (auto) 0.02 K/uL (0.00-0.02); Immature Granulocytes % (auto) 0.2 %; Lymphocytes # (auto) 0.94 K/uL (1.2-3.4); Lymphocytes % (auto) 10.2 %; Mean Corpuscular Hgb Conc 33.9 g/dL (32-36); Mean Corpuscular Volume 85.4 fL (80-100); Monocytes # (auto) 0.53 K/uL (0.11-0.59); Monocytes % (auto) 5.8 %; Neutrophils # (auto) 7.69 K/uL (1.4-6.5); Neutrophils % (auto) 83.7 %; Platelet Count 250 K/uL (130-400); RDW Coefficient of Variation 13.5 % (11.5-14.5); RDW Standard Deviation 42.2 fL (36.4-46.3); Red Blood Count 3.35 M/uL (4.7-6.1); White Blood Count 9.19 K/uL (4.8-10.8)
[2021-02-12 07:05] LABS: BUN Creatinine Ratio 9.1 (10-20); Calcium 8.1 mg/dl (8.5-10.1); Creatinine Clr Calc Pharmacy 27.5 ml/min; Est GFR (African American) 26.5 ml/min; Est GFR (Non-African American) 22.9 ml/min; Magnesium 1.8 mg/dl (1.8-2.4); Potassium 3.8 mmol/L (3.5-5.1)
[2021-02-12] MEDS: METOCLOPRAMIDE HCL 10 MG TABLET PO SCH ×3 (08:10→21:38)
[2021-02-12] MEDS: SUCRALFATE 1 GM TAB PO SCH ×4 (08:10→21:38)
[2021-02-12] MEDS: CHECK CLONIDINE PATCH PLACEMENT SCH ×2 (08:12→16:41)
[2021-02-12] MEDS: GABAPENTIN 100 MG CAP PO SCH ×3 (08:14→21:38)
[2021-02-12] MEDS: ADVANCED PROBIOTIC 1250 MG CAPSULE PO SCH ×2 (08:14→21:38)
[2021-02-12] MEDS: ESCITALOPRAM OXALATE 10 MG TAB PO SCH (08:14)
[2021-02-12] MEDS: levETIRAcetam 250 MG TAB PO SCH ×2 (08:14→21:37)
[2021-02-12] MEDS: amLODIPine BESYLATE 5 MG TAB PO SCH (08:15)
[2021-02-12] MEDS: FLUTICASONE/VILANTEROL 200/25MCG 14 PUFFS/INHALER INH SCH (08:15)
[2021-02-12] MEDS: MULTIVITAMIN TAB PO SCH (08:15)
[2021-02-12] MEDS: PANTOprazole 40 MG TAB PO SCH (08:15)
--- NOTE | 2021-02-12 08:19 | XRay Report ---
SINGLE VIEW CHEST CLINICAL HISTORY: Acute renal insufficiency. FINDINGS: An AP, portable, upright chest radiograph is compared to study dated 02/03/2021. Correlation is made with chest CT dated 12/20/2020. The cardiomediastinal silhouette is unremarkable. There is tr jevon left pleural effusion. The lungs and pleural spaces are otherwise clear. No pneumothorax is seen. The bony thorax is grossly intact. Leads project over the left upper quadrant of the abdomen. IMPRESSION: Trace left pleural effusion is unchanged. ACT 112: Negative or not required by law. Electronically signed by: Rsusell Ty M.D. 02/12/2021 8:17 AM
[2021-02-12] MEDS: MoRPHine SULFATE CR 15 MG TABCR PO SCH ×2 (09:31→21:46)
[2021-02-12 10:48] LABS: Appearance Urine Turbid (Clear); Bacteria Urine Automated Negative (Negative); Bilirubin Urine Negative (Negative); Blood Urine 1+ (Negative); Color Urine Yellow; Epithelial Cell Urine Auto >30 /lpf (0-5); Glucose Urine UA 3+ (Negative); Ketones Urine Trace (Negative); Leukocyte Esterase Urine Negative (Negative); Nitrite Urine Negative (Negative); Protein Urine 3+ (Negative); Specific Gravity Urine 1.017 (1.000-1.030); Urobilinogen Urine Negative (Negative)
--- NOTE | 2021-02-12 12:02 | Gastrointestinal Consultation ---
Date of Consultation February 12, 2021 Assessment & Plan (1) Gastroparesis: (2) Nausea & vomiting: severe gastroparesis in the setting of narcotic use which is likely making it worse; gastric pacer has already been adjusted on 02/08 by [facility] GI recs: --increase reglan to home dose of 10 mg TID --workup of HTNsive urgency, headaches and visual symptoms as per primary team, consider neurology evaluation and imaging --supportive care Thank you for allowing me to participate in the care of this patient History of Present Illness Attending Physician: Abhishek Meier MD History of Present Illness 55 yo male with hx severe gastroparesis here with HTNsive urgency. GI consulted for his gastroparesis. he continues to have abdominal pains and nausea and vomiting. Had his gastric pacer adjusted at [facility] on 02/08, they told him it would take some time to kick in. He is on reglan TID at home, currently receiving it qhs. Not able to tolerate po intake. Was just hospitalized with gastroparesis last week at [facility]. He does note headache and some vision problems. labs reviewed. VSS now. Allergies Allergy/AdvReac Type Severity Reaction Status Date / Time bee venom protein (honey bee) Allergy Mild SWELLING Verified 02/12/21 01:06 AT SITE, SOB Penicillins Allergy Unknown "SINCE Verified 02/12/21 01:06 "-Amoxicillin blue dye Allergy Unknown Verified 02/12/21 01:06 cat dander Allergy Unknown Verified 02/12/21 01:06 red (food color) Allergy Unknown Verified 02/12/21 01:06 red dye Allergy Unknown Verified 02/12/21 01:06 Home Medications Medication Instructions Recorded Confirmed Type albuterol sulfate 90 mcg/actuation 2 puff INHALATION Q4H PRN 05/05/18 02/12/21 History aerosol inhaler (Ventolin HFA) epinephrine 0.3 mg/0.3 mL 0.3 mg IM Q3H PRN 05/05/18 02/12/21 History injection, auto-injector (EpiPen) insulin glargine 100 unit/mL (3 7 unit SUBCUT HS 05/05/18 02/12/21 History mL) subcutaneous pen (Basaglar KwikPen U-100 Insulin) insulin lispro 100 unit/mL 1 sliding scale dose SUBCUT UD 05/05/18 02/12/21 History subcutaneous cartridge (Humalog U-100 Insulin) multivitamin 1 tab PO QAM 05/05/18 02/12/21 History pantoprazole 40 mg tablet,delayed 40 mg PO QAM 05/05/18 02/12/21 History release (Protonix) clonidine 0.2 mg/24 hr weekly 1 patch TRANSDERMAL WK 01/23/20 02/12/21 History transdermal patch (Oyrngclg-XDR-5) escitalopram oxalate 10 mg tablet 10 mg PO QAM 01/24/20 02/12/21 History (Lexapro) fluticasone 250 mcg-salmeterol 50 1 inh INHALATION BID 01/24/20 02/12/21 History mcg/dose blistr powdr for inhalation (Wixela Inhub) amlodipine 5 mg tablet (Norvasc) 5 mg PO QAM #30 tab 01/29/20 02/12/21 Rx levetiracetam 750 mg tablet 750 mg PO BID 30 Days #60 tab 01/29/20 02/12/21 Rx (Keppra) cyclobenzaprine 5 mg tablet 5 mg PO TID PRN 12/20/20 02/12/21 History ondansetron 8 mg disintegrating 8 mg PO Q8H PRN 12/20/20 02/12/21 History tablet morphine 30 mg tablet,extended 30 mg PO Q12H #10 tab 12/29/20 02/12/21 Rx release (MS Contin) L.acidop,casei,lactis,rham-B.lact,jose 1 cap PO BID 01/22/21 02/12/21 History 625 mg (10 billion cell) capsule (Advanced Probiotic) gabapentin 100 mg capsule 100 mg PO TID 01/22/21 02/12/21 History (Neurontin) magnesium oxide 400 mg (241.3 mg 400 mg PO BID 01/22/21 02/12/21 History magnesium) tablet (MagOx) metoclopramide HCl 10 mg tablet 10 mg PO ACHS 01/22/21 02/12/21 History (Reglan) oxycodone 5 mg tablet (Roxicodone) 5 mg PO Q4H PRN 01/22/21 02/12/21 History sucralfate 1 gram tablet (Carafate) 1 g PO QID 01/22/21 02/12/21 History Patient History Medical History Acute dyspnea Acute hyponatremia Acute renal insufficiency IVAN (acute kidney injury) Anemia Chest pain No current chest pain...related to reflux per patient Chronic pain COPD (chronic obstructive pulmonary disease) Diabetes mellitus type 2, uncontrolled Diabetic autonomic neuropathy Diabetic peripheral neuropathy Discharge planning issues DVT prophylaxis Elevated d-dimer Gastroparesis "s/p gastric stimulator" Hypertension Hypomagnesemia Intractable nausea and vomiting 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 One 1 mm polyp in the ascending colon resected. One benign appearing 1 mm polyp in the rectum resected. Internal hemorrhoids; Dr. Demarco" H/O esophagogastroduodenoscopy "01/26/2015- [place] Grade B reflux esophagitis, gastritis; Dr. Major" History of cholecystectomy History of tonsillectomy and adenoidectomy Hx of total knee arthroplasty S/P lobectomy of lung "left upper lobectomy for adenoCa" On 08/05/16 16:30 Edie Mcfarland wrote "L side @ [facility] 05/25/16" Status post insertion of intrathecal pump explanted Family History Other Family history non-contributory Social History Smoking Status: Former smoker Tobacco Type: Cigarettes Second Hand Exposure: No; Hx Alcohol Use: No Hx Substance Use: Yes Last Used Substance: Just Prior to Arrival Last Used Substance Other:: Four hours ago Substance Use Type Other:: Currenlty denies Preferred Language: Spanish Communication Ability: Effective Game Designer/Creative Director Required: No Beliefs That Will Affect Care: Hoahaoism Hoahaoism Beliefs: TAOIST marital status: Single Current Living Situation: Alone How many Children do You have: 5 Other Information That Helps Us Care for You: No Feels Safe at Home: Yes Safety Concerns: Feels Safe At This Time Assistive Devices: Cane, Special Shoe and Walker Assistive Devices Comment: WALKER` Review of Systems Constitutional: no fever, no chills and no weight loss Eyes: as per Subjective / HPI Ear, Nose, Mouth, Throat: as per Subjective / HPI Respiratory: no dyspnea and no dyspnea on exertion Cardiovascular: no chest pain and no palpitations Gastrointestinal: as per Subjective / HPI Musculoskeletal: no joint pain and no swelling Integumentary: no rash and no lesions Neurologic: no numbness and no paresthesia Psychiatric: no depression and no anxiety Endocrine: no fatigue Hematologic / Lymphatic: no easy bleeding and no easy bruising Physical Exam Constitutional: WD/WN, vitals as above Eyes: EOM intact bilaterally Neck: normal visual inspection Respiratory: normal respiratory effort, lungs clear to auscultation Cardiovascular: RRR, no murmur, no edema Gastrointestinal (Abdomen): Inspection/Auscultation: abdomen normal to inspection; abdomen not distended Percussion/Palpation: + abdomen tender (moderate upper abdomen) and abdomen soft; no hepatosplenomegaly Musculoskeletal: Extremities: no cyanosis Gait: normal gait Skin: no rashes, warm and dry Neurologic: moves all extremities Psychiatric: A+Ox3, euthymic affect Results & Data ([facility]) Vital Signs (Past 12 Hours) Vital Signs Temp Pulse Pulse Resp BP BP Pulse Ox 02/12/21 11:29 37.1 C 17 134/76 99 02/12/21 10:35 37.1 C 84 17 135/72 99 02/12/21 08:00 37.1 C 82 18 135/72 97 02/12/21 05:19 89 19 108/72 98 02/12/21 03:06 37.1 C 91 H 16 205/116 H 100 02/12/21 02:30 86 18 201/119 H 99 02/12/21 01:30 93 H 20 187/114 H 100 02/12/21 01:00 90 20 212/116 H 98 02/12/21 00:31 92 H 18 214/112 H 98 PG Care Time/CCT Total # of Minutes Spent Total Time Spent with Patient: Total time spent is greater than 50% in coordination of care (as documented) at patient's floor/unit and/or counseling patient: Coding Level of Care Code 76356 Initial Inpt Care Lvl 3 Diagnoses Gastroparesis K31.84 Nausea & vomiting R11.2 Vomiting Intractability: non-intractable Vomiting type: unspecified (1) Nausea & vomiting Vomiting Intractability: non-intractable Vomiting type: unspecified Qualified Code(s): R11.2 - Nausea with vomiting, unspecified
--- NOTE | 2021-02-12 12:02 | Electrocardiogram Report ---
Test Reason : Blood Pressure : / mmHG Vent. Rate : 090 BPM Atrial Rate : 090 BPM P-R Int : 140 ms QRS Dur : 094 ms QT Int : 394 ms P-R-T Axes : 059 -20 056 degrees QTc Int : 481 ms Poor data quality, interpretation may be adversely affected Normal sinus rhythm Anteroseptal infarct (cited on or before 20-DEC-2020) Abnormal ECG When compared with ECG of 03-FEB-2021 20:32, Questionable change in initial forces of Anterior leads Confirmed by Surya Polk ([id number]) on 02/12/2021 12:02:12 PM Referred By: REFERRED SELF Confirmed By:Surya Polk
[2021-02-12] MEDS: oxyCODONE HCL IR 5 MG TAB (IMMEDIATE RELEASE) PO PRN (15:18)
--- NOTE | 2021-02-12 18:21 | Hospitalist Progress Note ---
Date of Service February 12, 2021 Assessment & Plan (1) Asymptomatic hypertensive urgency: (2) Nausea & vomiting: Plan: 55-year-old male with NSCC of lung stage III s/p surgery and incomplete chemo secondary to intolerance, COPD, ulcerative colitis, type I DM with complication [gastroparesis, PDN], chronic pain on narcotics, HTN, past tobacco abuse, CKD [baseline around 2.5-3], chronic anemia and seizure disorder came in 02/12 with chief complaint of abdominal pain associated with nausea and vomiting. Is being managed for the following: #. Nausea and vomiting: Secondary to worsening gastroparesis and severe esophagitis complicated by increased pain medication requirement. H/o gastroparesis,and gastric pacemaker. Also on narcotics for chronic pain. Presented with nausea, vomiting and diarrhea Per patient, he recently visited his motilitist in [facility] and his gastric pacer was tweaked. GI consulted: Increase the Reglan dose to 3 times daily. Per patient, patient is scheduled for upper scope and possible dilation in [facility] on February 22. Patient reporting nausea and vomiting under control, continue with antiemetics as needed. Continue with Reglan. #. Hypertensive urgency: Presented with blood pressure of 164/94 Patient reports that he has always had high blood pressure Blood pressure currently fairly under control continue with home meds Use as needed IV medications per protocol. Follow-up with PCP for reevaluation and dose adjustment as appropriate upon discharge. #. Chronic kidney disease stage III: Possible acute kidney injury component. His baseline creatinine used to be 2.5-3 according to his recent labs, Likely secondary to vomiting. Expect to improve with normal p.o. intake. Encourage increased fluid intake. Continue to monitor labs daily. #. Type 1 diabetes: His recent HbA1c was 7.4%. Continue his long-acting insulin sliding scale. Monitor the blood sugars. #. Non-small cell lung cancer, stage III, status post surgery, incomplete chemotherapy secondary to tolerance. Needs to follow up with PCP and oncologist. Patient aware. #. History of seizure disorder, currently on Keppra 750 b.i.d. If not able to take p.o., then need to change to IV. #. Chronic anemia: Hemoglobin seems stable. Will follow the repeat labs. #. History of tobacco abuse. #. Chronic pain: Continue his home pain medications. Patient states that he needs his pain medication. #. Depression: Continue Lexapro. #. History of chronic obstructive pulmonary disease: Continue home inhalers. DVT prophylaxis: heparin subQ currently held, resume after the scope. Admission and Anticipated Discharge Date Admission Date: February 12, 2021 Subjective Patient was sitting up in bed, talking over the phone, NAD, on room air. Patient reports improvement in his nausea and vomiting. Patient denies any headache/dizziness/chest pain/other review of symptoms. Physical Exam Physical Exam: GENERAL: Alert and oriented x3. NAD, on RA. HEENT: No pallor, no icterus. Pupils equal, round and reactive to light. Oral mucosa moist. NECK: No JVD, no neck masses. HEART: S1 and S2 heard. Regular rate and rhythm. Systolic murmur over aortic and pulmonic area, no gallop. RESPIRATORY SYSTEM: Normal AP diameter. No accessory muscle use. No wheezing, no crackles. ABDOMEN: Soft, bowel sounds present, nontender, healed abdominal scars over left and right abdomen, gastric pacemaker in situ x left side CENTRAL NERVOUS SYSTEM: No facial droop. Speech is clear. Obeys simple commands. Moves extremities. EXTREMITIES: No edema, no erythema seen. Results & Data Results & Data ([facility]) Vital Signs (Past 12 Hours) Vital Signs Temp Pulse Pulse Resp BP BP Pulse Ox 02/12/21 16:09 36.5 C 77 16 152/90 H 97 02/12/21 12:02 36.6 C 84 15 181/98 H 100 02/12/21 11:29 37.1 C 17 134/76 99 02/12/21 10:35 37.1 C 84 17 135/72 99 02/12/21 08:00 37.1 C 82 18 135/72 97 (1) Nausea & vomiting Vomiting Intractability: non-intractable Vomiting type: unspecified Qualified Code(s): R11.2 - Nausea with vomiting, unspecified
[2021-02-12] MEDS: hydrALAZINE HCL 20 MG/ML VIAL IV PRN (20:03)
[2021-02-12] MEDS: INSULIN GLARGINE SOLOSTAR 100 UNITS/ML 3 ML PEN SQ SCH (21:39)
[2021-02-13] MEDS: CHECK CLONIDINE PATCH PLACEMENT SCH ×3 (00:15→16:26)
[2021-02-13] MEDS: oxyCODONE HCL IR 5 MG TAB (IMMEDIATE RELEASE) PO PRN (03:37)
[2021-02-13] MEDS: HEPARIN SOD 5,000 UNIT/0.5 ML VIAL SQ SCH ×3 (06:18→22:35)
[2021-02-13 08:01] LABS: BUN Creatinine Ratio 7.9 (10-20); Calcium 8.5 mg/dl (8.5-10.1); Creatinine Clr Calc Pharmacy 28.3 ml/min; Est GFR (African American) 27.6 ml/min; Est GFR (Non-African American) 23.8 ml/min; Magnesium 1.8 mg/dl (1.8-2.4); Potassium 3.6 mmol/L (3.5-5.1)
[2021-02-13] MEDS: MULTIVITAMIN TAB PO SCH (08:13)
[2021-02-13] MEDS: INSULIN ASPART 100 UNITS/ML 3 ML PEN SC SCH ×4 (08:13→22:38)
[2021-02-13] MEDS: ADVANCED PROBIOTIC 1250 MG CAPSULE PO SCH ×2 (08:13→22:36)
[2021-02-13] MEDS: amLODIPine BESYLATE 5 MG TAB PO SCH (08:14)
[2021-02-13] MEDS: GABAPENTIN 100 MG CAP PO SCH ×3 (08:14→22:37)
[2021-02-13] MEDS: ESCITALOPRAM OXALATE 10 MG TAB PO SCH (08:14)
[2021-02-13] MEDS: PANTOprazole 40 MG TAB PO SCH (08:14)
[2021-02-13] MEDS: levETIRAcetam 250 MG TAB PO SCH ×2 (08:15→22:36)
[2021-02-13] MEDS: FLUTICASONE/VILANTEROL 200/25MCG 14 PUFFS/INHALER INH SCH (08:15)
[2021-02-13] MEDS: SUCRALFATE 1 GM TAB PO SCH ×4 (08:17→23:35)
[2021-02-13] MEDS: METOCLOPRAMIDE HCL 10 MG TABLET PO SCH ×3 (08:18→22:36)
[2021-02-13] MEDS: MoRPHine SULFATE CR 15 MG TABCR PO SCH ×2 (08:20→22:35)
--- NOTE | 2021-02-13 08:27 | Gastroenterology Progress Note ---
Date of Service February 13, 2021 Assessment & Plan (1) Gastroparesis: Plan: 55 year old male admitted w/ nausea/vomiting, this AM feeling improved, tolerating clear liquid diet Continue dietary advancement to full liquid/soft diet Continue antiemetics as ordered Should continue OP follow up with gastric pacer clinic Recall GI Derrick you for allowing us to participate in the care of this patient. Please call with any acute changes, questions or concerns. Please see addendum below with additional recommendation from my supervising physician. Admission and Anticipated Discharge Date Admission Date: February 12, 2021 Supervising Physician Co-Signing Physician Notes I have seen and examined the patient with LINDSAY Saunders whose note reflects our findings and plan. Patient with severe gastroparesis who is s/p adjustment of his gastric pacer at OSH 02/08 admitted with HTN emergency. Was nauseated and not tolerating PO over the weekend. Better today and tolerating liquid diet. BP better controlled. Agree with slow advancement of diet. He will need outpatient f/u with the gastric pacer clinic. Subjective Pt was seen and evaluated, chart reviewed. Symptoms resolved Is pain free No nausea ,vomiting Tolerating clear liquids No fever, chills, CP, SOB. Review of Systems Review of Systems: All systems reviewed & are unremarkable except as noted in HPI & below Physical Exam Constitutional: WD/WN, vitals as above Neck: trachea midline, no thyromegaly Respiratory: normal respiratory effort, lungs clear to auscultation Gastrointestinal (Abdomen): normal bowel sounds, soft, nontender, no hepatosplenomegaly Skin: no rashes, warm and dry Results & Data ([facility]) Vital Signs (Past 12 Hours) Vital Signs Temp Pulse Pulse Resp BP Pulse Ox 02/13/21 07:32 36.5 C 71 14 165/83 H 98 02/13/21 03:44 36.5 C 76 144/83 H 97 02/13/21 00:00 76 02/12/21 23:39 36.4 C L 77 18 139/81 99 Laboratory Results 02/13/21 02/13/21 02/12/21 Range/Units 07:19 07:19 Unknown Sodium 136 (136-145) mmol/L Potassium 3.6 (3.5-5.1) mmol/L Chloride 106 (98-107) mmol/L Carbon Dioxide 25 (21-32) mmol/L Anion Gap 6.0 (3-11) BUN 22 H (7-18) mg/dl Creatinine 2.85 H (0.6-1.4) mg/dl Est Cr Clr Drug Dosing 28.3 ml/min Est GFR ( Amer) 27.6 ml/min Est GFR (Non-Af Amer) 23.8 ml/min BUN/Creatinine Ratio 7.9 L (10-20) Glucose 113 H (70-99) mg/dl POC Glucose 113 H (70-99) mg/dl Calcium 8.5 (8.5-10.1) mg/dl Magnesium 1.8 (1.8-2.4) mg/dl Urine Color Yellow Urine Appearance Turbid A (Clear) Urine pH 7.0 (4.5-7.5) Ur Specific [place] 1.017 (1.000-1.030) Urine Protein 3+ H (Negative) Urine Glucose (UA) 3+ H (Negative) Urine Ketones Trace H (Negative) Urine Blood 1+ H (Negative) Urine Nitrite Negative (Negative) Urine Bilirubin Negative (Negative) Urine Urobilinogen Negative (Negative) Ur Leukocyte Esterase Negative (Negative) Urine WBC (Auto) 10-30 H (0-5) /hpf Urine RBC (Auto) 10-30 H (0-4) /hpf U Hyaline Cast (Auto) 10-30 H (0-5) /lpf U Epithel Cells (Auto) >30 H (0-5) /lpf Urine Bacteria (Auto) Negative (Negative) Ur Renal Epithelial Cell Not Reportable 02/12/21 02/12/21 02/12/21 Range/Units 21:28 16:14 12:40 Sodium (136-145) mmol/L Potassium (3.5-5.1) mmol/L Chloride (98-107) mmol/L Carbon Dioxide (21-32) mmol/L Anion Gap (3-11) BUN (7-18) mg/dl Creatinine (0.6-1.4) mg/dl Est Cr Clr Drug Dosing ml/min Est GFR ( Amer) ml/min Est GFR (Non-Af Amer) ml/min BUN/Creatinine Ratio (10-20) Glucose (70-99) mg/dl POC Glucose 140 H 146 H 287 H (70-99) mg/dl Calcium (8.5-10.1) mg/dl Magnesium (1.8-2.4) mg/dl Urine Color Urine Appearance (Clear) Urine pH (4.5-7.5) Ur Specific [place] (1.000-1.030) Urine Protein (Negative) Urine Glucose (UA) (Negative) Urine Ketones (Negative) Urine Blood (Negative) Urine Nitrite (Negative) Urine Bilirubin (Negative) Urine Urobilinogen (Negative) Ur Leukocyte Esterase (Negative) Urine WBC (Auto) (0-5) /hpf Urine RBC (Auto) (0-4) /hpf U Hyaline Cast (Auto) (0-5) /lpf U Epithel Cells (Auto) (0-5) /lpf Urine Bacteria (Auto) (Negative) Ur Renal Epithelial Cell
--- NOTE | 2021-02-13 16:06 | Hospitalist Progress Note ---
Date of Service February 13, 2021 Assessment & Plan (1) Asymptomatic hypertensive urgency: (2) Nausea & vomiting: Plan: 55-year-old male with NSCC of lung stage III s/p surgery and incomplete chemo secondary to intolerance, COPD, ulcerative colitis, type I DM with complication [gastroparesis, PDN], chronic pain on narcotics, HTN, past tobacco abuse, CKD [baseline around 2.5-3], chronic anemia and seizure disorder came in 02/12 with chief complaint of abdominal pain associated with nausea and vomiting. Is being managed for the following: #. Nausea and vomiting: Secondary to worsening gastroparesis and severe esophagitis complicated by increased pain medication requirement. H/o gastroparesis,and gastric pacemaker. Also on narcotics for chronic pain. Presented with nausea, vomiting and diarrhea Per patient, he recently visited his motilitist in [facility] and his gastric pacer was tweaked. GI consulted: Increase the Reglan dose to 3 times daily. Per patient, patient is scheduled for upper scope and possible dilation in [facility] on February 22. Patient reporting nausea and vomiting under control, continue with antiemetics as needed. Continue with Reglan. Will advance his diet and if he continues to tolerate, will discharge him tomorrow. Patient counseled that upon discharge he will need to eat more of liquid consistency diet, small volume, frequent rather than regular solid diet. #. Hypertensive urgency: Presented with blood pressure of 164/94 Patient reports that he has always had high blood pressure Blood pressure currently fairly under control continue with home meds Use as needed IV medications per protocol. Follow-up with PCP for reevaluation and dose adjustment as appropriate upon discharge. #. Chronic kidney disease stage III: Possible acute kidney injury component. His baseline creatinine used to be 2.5-3 according to his recent labs, Likely secondary to vomiting. Expect to improve with normal p.o. intake. Encourage increased fluid intake. Continue to monitor labs daily. #. Type 1 diabetes: His recent HbA1c was 7.4%. Continue his long-acting insulin sliding scale. Monitor the blood sugars. #. Non-small cell lung cancer, stage III, status post surgery, incomplete chemotherapy secondary to tolerance. Needs to follow up with PCP and oncologist. Patient aware. #. History of seizure disorder, currently on Keppra 750 b.i.d. If not able to take p.o., then need to change to IV. #. Chronic anemia: Hemoglobin seems stable. Will follow the repeat labs. #. History of tobacco abuse. #. Chronic pain: Continue his home pain medications. Patient states that he needs his pain medication. #. Depression: Continue Lexapro. #. History of chronic obstructive pulmonary disease: Continue home inhalers. DVT prophylaxis: heparin subQ currently held, resume after the scope. Admission and Anticipated Discharge Date Admission Date: February 12, 2021 Subjective Patient lying in bed, NAD, room air, no acute events overnight. Patient reports improvement in his nausea and vomiting on clear liquid diet. We will advance his diet and see if he tolerates, possible discharge tomorrow. Patient denies fever/headache/dizziness/other review of symptoms. Physical Exam Physical Exam: GENERAL: Alert and oriented x3. NAD, on RA. HEENT: No pallor, no icterus. Pupils equal, round and reactive to light. Oral mucosa moist. NECK: No JVD, no neck masses. HEART: S1 and S2 heard. Regular rate and rhythm. Systolic murmur over aortic and pulmonic area, no gallop. RESPIRATORY SYSTEM: Normal AP diameter. No accessory muscle use. No wheezing, no crackles. ABDOMEN: Soft, bowel sounds present, nontender, healed abdominal scars over left and right abdomen, gastric pacemaker in situ x left side CENTRAL NERVOUS SYSTEM: No facial droop. Speech is clear. Obeys simple commands. Moves extremities. EXTREMITIES: No edema, no erythema seen. Results & Data Results & Data ([facility]) Vital Signs (Past 12 Hours) Vital Signs Temp Pulse Pulse Resp BP Pulse Ox 02/13/21 15:24 36.7 C 85 18 153/85 H 95 02/13/21 11:35 36.4 C L 75 16 169/91 H 97 02/13/21 08:53 74 02/13/21 07:32 36.5 C 71 14 165/83 H 98 (1) Nausea & vomiting Vomiting Intractability: non-intractable Vomiting type: unspecified Qualified Code(s): R11.2 - Nausea with vomiting, unspecified
[2021-02-13] MEDS: INSULIN GLARGINE SOLOSTAR 100 UNITS/ML 3 ML PEN SQ SCH (22:37)
[2021-02-14] MEDS: oxyCODONE HCL IR 5 MG TAB (IMMEDIATE RELEASE) PO PRN (00:33)
[2021-02-14] MEDS: CYCLOBENZAPRINE HCL 5 MG TAB PO PRN ×2 (00:56→08:49)
[2021-02-14] MEDS: CHECK CLONIDINE PATCH PLACEMENT SCH ×3 (02:21→16:52)
[2021-02-14] MEDS: HEPARIN SOD 5,000 UNIT/0.5 ML VIAL SQ SCH ×3 (06:33→20:51)
[2021-02-14 08:20] LABS: BUN Creatinine Ratio 6.7 (10-20); Calcium 7.6 mg/dl (8.5-10.1); Creatinine Clr Calc Pharmacy 21.4 ml/min; Est GFR (African American) 19.6 ml/min; Est GFR (Non-African American) 16.9 ml/min; Magnesium 1.7 mg/dl (1.8-2.4); Phosphorus 4.5 mg/dl (2.5-4.9); Potassium 4.4 mmol/L (3.5-5.1)
[2021-02-14 08:31] LABS: Beta-Hydroxybutyrate 0.58 mg/dl (0.2-2.81)
[2021-02-14] MEDS: amLODIPine BESYLATE 5 MG TAB PO SCH (08:49)
[2021-02-14] MEDS: MULTIVITAMIN TAB PO SCH (08:49)
[2021-02-14] MEDS: levETIRAcetam 250 MG TAB PO SCH ×2 (08:49→20:32)
[2021-02-14] MEDS: METOCLOPRAMIDE HCL 10 MG TABLET PO SCH ×3 (08:49→20:33)
[2021-02-14] MEDS: ADVANCED PROBIOTIC 1250 MG CAPSULE PO SCH ×2 (08:50→20:31)
[2021-02-14] MEDS: FLUTICASONE/VILANTEROL 200/25MCG 14 PUFFS/INHALER INH SCH (08:50)
[2021-02-14] MEDS: ESCITALOPRAM OXALATE 10 MG TAB PO SCH (08:50)
[2021-02-14] MEDS: GABAPENTIN 100 MG CAP PO SCH ×3 (08:50→20:27)
[2021-02-14] MEDS: PANTOprazole 40 MG TAB PO SCH (08:50)
[2021-02-14] MEDS: INSULIN ASPART 100 UNITS/ML 3 ML PEN SC SCH ×4 (08:51→20:28)
[2021-02-14] MEDS: MoRPHine SULFATE CR 15 MG TABCR PO SCH ×2 (08:59→20:27)
[2021-02-14] MEDS ORDERED: PHARMACY GLYCEMIC MGMT CONSULT PRN (09:19)
[2021-02-14] MEDS: MAGNESIUM OXIDE 400 MG TAB PO SCH ×2 (10:50→20:33)
[2021-02-14] MEDS: SUCRALFATE 1 GM TAB PO SCH ×4 (10:50→20:32)
[2021-02-14] MEDS: SODIUM CHLORIDE 0.9% 1000ML 1,000 ML IV SCH (10:54)
--- NOTE | 2021-02-14 12:47 | Pharmacy Report ---
Pharmacy Glycemic Short Note 2 - Date of Service February 14, 2021 - Glycemic Short BSG Results (Last 24 hours): 02/13/21 02/13/21 02/14/21 16:33 20:35 07:02 Glucose POC Glucose 118 H 91 333 H* 02/14/21 02/14/21 02/14/21 07:04 07:09 11:21 Glucose 315 H* POC Glucose 327 H* 64 L* 02/14/21 11:22 Glucose POC Glucose 57 L* OUTPATIENT ANTIDIABETIC REGIMEN: * Basaglar 7 units HS * Humalog per scale ASSESSMENT: * Mr Hamilton is a 55 y/o M with a PMH of T1DM who presents with hypertensive urgency and N/V. Pharmacy consulted on day 3 of hospitalization. * Patient received 15 units of insulin yesterday (5 units of basal and 10 units of bolus). BSGs [phone] mg/dL. Fasting today 327 mg/dL. * Lunch BSG 57 mg/dL due to overcorrection at breakfast. * Start lantus 7 units--- patient basal deficient and reason for hyperglycemia at breakfast. Give slightly earlier at dinnertime. * Loosen Novolog to parameters that were previously affective. PLAN FOR INPATIENT GLYCEMIC CONTROL: * Basal insulin * Lantus 7 units SQ HS * Bolus insulin * NovoLog per scale ACHS or Q6hrs while NPO * Goal Range: Low 110 mg/dL - High 140 mg/dL * Correction Factor: 50 mg/dL/unit * Nutritional / Prandial insulin per carb ratio of 1 unit per 18 grams CHO consumed PLAN FOR DISCHARGE: * Continue to follow-up with outpatient provider for indepth insulin adjustments.
[2021-02-14] MEDS: INSULIN GLARGINE SOLOSTAR 100 UNITS/ML 3 ML PEN SQ SCH (17:07)
--- NOTE | 2021-02-14 17:29 | Hospitalist Progress Note ---
Date of Service February 14, 2021 Assessment & Plan (1) Asymptomatic hypertensive urgency: (2) Nausea & vomiting: Plan: 55-year-old male with NSCC of lung stage III s/p surgery and incomplete chemo secondary to intolerance, COPD, ulcerative colitis, type I DM with complication [gastroparesis, PDN], chronic pain on narcotics, HTN, past tobacco abuse, CKD [baseline around 2.5-3], chronic anemia and seizure disorder came in 02/12 with chief complaint of abdominal pain associated with nausea and vomiting. Is being managed for the following: #. Nausea and vomiting: Secondary to worsening gastroparesis and severe esophagitis complicated by increased pain medication requirement. H/o gastroparesis,and gastric pacemaker. Also on narcotics for chronic pain. Presented with nausea, vomiting and diarrhea Per patient, he recently visited his motilitist in [facility] and his gastric pacer was tweaked. GI consulted: Increase the Reglan dose to 3 times daily. Per patient, patient is scheduled for upper scope and possible dilation in [facility] on February 22. Patient reporting nausea and vomiting under control, continue with antiemetics as needed. Continue with Reglan. Patient tolerating soft diet, will recommend soft diet up on discharge small volume frequent meals. Patient counseled that upon discharge he will need to eat more of liquid consistency diet, small volume, frequent rather than regular solid diet. #. Hypertensive urgency: Presented with blood pressure of 164/94 Patient reports that he has always had high blood pressure Blood pressure currently fairly under control continue with home meds Use as needed IV medications per protocol. Follow-up with PCP for reevaluation and dose adjustment as appropriate upon discharge. #. IVAN over Chronic kidney disease stage III: His baseline creatinine used to be 2.5-3 according to his recent labs, Creatinine trended up to 3.78 today, patient reports he has been eating and drinking good and has not been vomiting. Will get nephrology on board, await recommendation. We will monitor off of hydration due to difficult to control hypertension, encourage increased fluid intake. Continue to monitor labs daily. #. Type 1 diabetes: His recent HbA1c was 7.4%. Continue his long-acting insulin sliding scale. Monitor the blood sugars. #. Non-small cell lung cancer, stage III, status post surgery, incomplete chemotherapy secondary to tolerance. Needs to follow up with PCP and oncologist. Patient aware. #. History of seizure disorder, currently on Keppra 750 b.i.d. If not able to take p.o., then need to change to IV. #. Chronic anemia: Hemoglobin seems stable. Will follow the repeat labs. #. History of tobacco abuse. #. Chronic pain: Continue his home pain medications. Patient states that he needs his pain medication. #. Depression: Continue Lexapro. #. History of chronic obstructive pulmonary disease: Continue home inhalers. DVT prophylaxis: Heparin SQ Admission and Anticipated Discharge Date Admission Date: February 14, 2021 Subjective Patient was sitting up in bed, drinking water, on room air, NAD. Patient denies any new acute events overnight. Patient reports feeling better with regard to nausea and vomiting. Denies any fever/headache/chills/heart racing/other review of symptoms. Physical Exam Physical Exam: GENERAL: Alert and oriented x3. NAD, on RA. HEENT: No pallor, no icterus. Pupils equal, round and reactive to light. Oral mucosa moist. NECK: No JVD, no neck masses. HEART: S1 and S2 heard. Regular rate and rhythm. Systolic murmur over aortic and pulmonic area, no gallop. RESPIRATORY SYSTEM: Normal AP diameter. No accessory muscle use. No wheezing, no crackles. ABDOMEN: Soft, bowel sounds present, nontender, healed abdominal scars over left and right abdomen, gastric pacemaker in situ x left side CENTRAL NERVOUS SYSTEM: No facial droop. Speech is clear. Obeys simple commands. Moves extremities. EXTREMITIES: No edema, no erythema seen. Results & Data Results & Data ([facility]) Vital Signs (Past 12 Hours) Vital Signs Temp Pulse Resp BP Pulse Ox 02/14/21 15:16 36.6 C 83 19 141/78 H 96 02/14/21 10:39 36.9 C 82 17 91/51 L 95 02/14/21 07:43 36.6 C 80 17 133/73 97 (1) Nausea & vomiting Vomiting Intractability: non-intractable Vomiting type: unspecified Qualified Code(s): R11.2 - Nausea with vomiting, unspecified
[2021-02-15] MEDS: CHECK CLONIDINE PATCH PLACEMENT SCH ×4 (00:20→23:27)
[2021-02-15] MEDS: SODIUM CHLORIDE 0.9% 1000ML 1,000 ML IV SCH (04:34)
[2021-02-15] MEDS: HEPARIN SOD 5,000 UNIT/0.5 ML VIAL SQ SCH ×3 (05:41→20:46)
[2021-02-15] MEDS: INSULIN ASPART 100 UNITS/ML 3 ML PEN SC SCH ×4 (08:00→21:27)
[2021-02-15 08:30] LABS: BUN Creatinine Ratio 8.8 (10-20); Calcium 7.6 mg/dl (8.5-10.1); Creatinine Clr Calc Pharmacy 21.4 ml/min; Est GFR (African American) 19.6 ml/min; Est GFR (Non-African American) 16.9 ml/min; Potassium 4.6 mmol/L (3.5-5.1)
--- NOTE | 2021-02-15 09:00 | Nephrology Consultation ---
Date of Consultation February 15, 2021 Assessment & Plan (1) Acute on chronic renal failure: IVAN stage one nonoliguric in setting of rapidly progressive CKD, now stage 4 w/ underlying 1 gm daily albuminuria at least. High risk for complications/renal progression and possible this is further progressoin, not just ivan. On the other hand, this is also possible ischemic ATN in the wake of severe HTN on presentation. cannot rule out need for dialysis or biopsy, but no current urgent indication for either. chemistries ok as is volume status at least on exam. Baseline urine c/w chronic inflammation such as nephropathy or GN or chronic interstitial nephritis. -defer to primary service to titrate down opiate and gabapentin doses metabolites of which can accumulate in renal failure and cause altered mentation -daily bmp -bladder scan and ruiz if > 200 mL retained urine -repeat UACM and quantify protienuria > orders in -agree w/ stopping NS -will absolutely need close renal f/u after d/c, possibly in [place] History of Present Illness Reason for Consultation: IVAN on CKD Requesting Physician: Dr Meier Attending Physician: Antonino Car MD History of Present Illness 55 y/o M whom I'm asked to see for IVAN on CKD was admitted for HTN urgency w/ presenting SBP 240s and N, abd pain, emesis. His admission creatinine was 3.2; kim morning after admission at 3; this AM and yesterday creatinine was 3.8. Pt was admitted here recently w/ creatinine 3 during entire /1-02/06. Creat of 3 has been baseline creatinine range since December 2020. In spring 2020 it ran high ones to 2 primarily; prior to this he had creatinine mid ones from [id number]. He has as of late 2019 1.1 gm albuminuria. he tells me he does not follow w/ nephrology as an outpatient. PMH includes poorly differentiated NSCLC diagnosed 2017 and s/p surgery and with no specific tx since 2017 d/t poor tolerance (follows w/ Dr Raudel Keith); also w/ DM1 c/b severe autonomic dysfunction and neuropathy, severe gastroparesis s/p gastric pacemaker, chronic pain on narcotics, HTN, COPD, reformed tobacco abuse, IBD, record of seizure disorder, chronic ambulatory dysfunction/walker dependent. Also w/ frequent admissions here for sx of gastroparesis such as n/v/abd pain. Noted on presentation to have severe esophagitis as well; plan is for upper GI scope and possible dilation UP 02/22/21. His BP meds have not been adjusted. BP has improved for the most part though still robust in 130-160s, currently 150s. Worsening creatinine attributed to N/vomiting, though he tells me today these sx are well controlled. States he has "pain all over," though otherwise feels gene rally well: no worsening sob, no current N/V/abd pain, no issues passing urine, no edema, no chest discomfort. Allergies Allergy/AdvReac Type Severity Reaction Status Date / Time bee venom protein (honey bee) Allergy Mild SWELLING Verified 02/12/21 01:06 AT SITE, SOB Penicillins Allergy Unknown "SINCE Verified 02/12/21 01:06 "-Amoxicillin blue dye Allergy Unknown Verified 02/12/21 01:06 cat dander Allergy Unknown Verified 02/12/21 01:06 red (food color) Allergy Unknown Verified 02/12/21 01:06 red dye Allergy Unknown Verified 02/12/21 01:06 Home Medications Medication Instructions Recorded Confirmed Type albuterol sulfate 90 mcg/actuation 2 puff INHALATION Q4H PRN 05/05/18 02/12/21 History aerosol inhaler (Ventolin HFA) epinephrine 0.3 mg/0.3 mL 0.3 mg IM Q3H PRN 05/05/18 02/12/21 History injection, auto-injector (EpiPen) insulin glargine 100 unit/mL (3 7 unit SUBCUT HS 05/05/18 02/12/21 History mL) subcutaneous pen (Basaglar KwikPen U-100 Insulin) insulin lispro 100 unit/mL 1 sliding scale dose SUBCUT UD 05/05/18 02/12/21 History subcutaneous cartridge (Humalog U-100 Insulin) multivitamin 1 tab PO QAM 05/05/18 02/12/21 History pantoprazole 40 mg tablet,delayed 40 mg PO QAM 05/05/18 02/12/21 History release (Protonix) clonidine 0.2 mg/24 hr weekly 1 patch TRANSDERMAL WK 01/23/20 02/12/21 History transdermal patch (Lhtrjhud-HCZ-3) escitalopram oxalate 10 mg tablet 10 mg PO QAM 01/24/20 02/12/21 History (Lexapro) fluticasone 250 mcg-salmeterol 50 1 inh INHALATION BID 01/24/20 02/12/21 History mcg/dose blistr powdr for inhalation (Wixela Inhub) amlodipine 5 mg tablet (Norvasc) 5 mg PO QAM #30 tab 01/29/20 02/12/21 Rx levetiracetam 750 mg tablet 750 mg PO BID 30 Days #60 tab 01/29/20 02/12/21 Rx (Keppra) cyclobenzaprine 5 mg tablet 5 mg PO TID PRN 12/20/20 02/12/21 History ondansetron 8 mg disintegrating 8 mg PO Q8H PRN 12/20/20 02/12/21 History tablet morphine 30 mg tablet,extended 30 mg PO Q12H #10 tab 12/29/20 02/12/21 Rx release (MS Contin) L.acidop,casei,lactis,rham-B.lact,jose 1 cap PO BID 01/22/21 02/12/21 History 625 mg (10 billion cell) capsule (Advanced Probiotic) gabapentin 100 mg capsule 100 mg PO TID 01/22/21 02/12/21 History (Neurontin) magnesium oxide 400 mg (241.3 mg 400 mg PO BID 01/22/21 02/12/21 History magnesium) tablet (MagOx) metoclopramide HCl 10 mg tablet 10 mg PO ACHS 01/22/21 02/12/21 History (Reglan) oxycodone 5 mg tablet (Roxicodone) 5 mg PO Q4H PRN 01/22/21 02/12/21 History sucralfate 1 gram tablet (Carafate) 1 g PO QID 01/22/21 02/12/21 History Patient History Medical History Acute dyspnea Anemia Chest pain No current chest pain...related to reflux per patient Chronic pain CKD (chronic kidney disease) stage 4, GFR 15-29 ml/min baseline creatinine 3 in fall 2020 w/ 1 gm proteinuria COPD (chronic obstructive pulmonary disease) Diabetes mellitus type 2, uncontrolled Diabetic autonomic neuropathy Diabetic peripheral neuropathy Discharge planning issues DVT prophylaxis Elevated d-dimer Gastroparesis "s/p gastric stimulator" Hypertension Hypomagnesemia Intractable nausea and vomiting Lung cancer "dx 01/2016; adenoCa [facility]; + hilar nodes; s/p left upper lobectomy + chemo" On 08/05/16 16:31 Edie Bartolo wrote "dx 01/2016; s/p L side lobectomy; currently undergoing chemo" Nausea and vomiting Orthostatic hypotension Pneumonia Presence of gastric pacemaker Seizure disorder SOB (shortness of breath) Surgical History H/O colonoscopy " 04/22/2013- Mildly congested and erythematous mucosa in the ascending colon. One 1 mm polyp in the ascending colon resected. One benign appearing 1 mm polyp in the rectum resected. Internal hemorrhoids; Dr. Demarco" H/O esophagogastroduodenoscopy "01/26/2015- [place] Grade B reflux esophagitis, gastritis; Dr. Major" History of cholecystectomy History of tonsillectomy and adenoidectomy Hx of total knee arthroplasty S/P lobectomy of lung "left upper lobectomy for adenoCa" On 08/05/16 16:30 Ediecleopatra Mcfarland wrote "L side @ [facility] 05/25/16" Status post insertion of intrathecal pump explanted Family History Other Family history non-contributory Social History Smoking Status: Former smoker Tobacco Type: Cigarettes Second Hand Exposure: No; Hx Alcohol Use: No Hx Substance Use: Yes Last Used Substance: Just Prior to Arrival Last Used Substance Other:: Four hours ago Substance Use Type Other:: Currenlty denies Preferred Language: [place] Communication Ability: Effective Reading Specialist Required: No Beliefs That Will Affect Care: Jehovah'S Witness Jehovah'S Witness Beliefs: SAMARITAN marital status: Single Current Living Situation: Alone How many Children do You have: 5 Other Information That Helps Us Care for You: No Feels Safe at Home: Yes Safety Concerns: Feels Safe At This Time Assistive Devices: Oxygen - Continuous and Special Shoe Assistive Devices Comment: JESSICA` Review of Systems Review of Systems: All systems reviewed & are unremarkable except as noted in HPI & below (limited by fluctuating mental status) Physical Exam Constitutional: well developed, + ill appearing, + intoxicated appearing (can hardly hold his eyes open or hold himself to sit up; pin point pupils) and + frail appearing; no acute distress Eyes: EOM intact bilaterally and + pinpoint pupils ENMT: Ears: no external ear abnormality Nose: no external nose abnormality Mouth: + dry oral mucous membranes Neck: no nuchal rigidity Respiratory: normal respiratory effort Auscultation: + diminished lung sounds Cardiovascular: Rate/Rhythm: regular rhythm and + tachycardic (in 90s) Extremities: no edema Gastrointestinal (Abdomen): Inspection/Auscultation: normal bowel sounds Percussion/Palpation: abdomen soft; abdomen nontender Musculoskeletal: Extremities: + abnormal strength (as above w/ general appearance) Skin: no rashes, warm and dry Neurologic: villarreal, fluent but limited speech, no tremor; seems slightly confused Psychiatric: Orientation: oriented to person, oriented to place and cooperative Genitourinary: no ruiz Results & Data ([facility]) Vital Signs (Past 12 Hours) Vital Signs Temp Pulse Pulse Resp BP Pulse Ox 02/15/21 07:32 36.6 C 89 18 135/72 91 02/15/21 03:47 36.7 C 91 H 20 108/68 97 02/15/21 00:29 88 02/14/21 23:45 36.8 C 83 18 133/68 94 Laboratory Results 02/12/21 06:04 02/15/21 07:24 02/12 UACM > turbid, 3+ protein, 3+ glucose, trace ketones, 1+ blood, >30 epis and 10-30 WBC, RBC; no bacteria Diagnostic Findings 02/08/21 PET osseous mets L rib; prostatomegaly and bladder distension ct abd/pelvis 02/03/21 noncon Adrenals: Right myelolipoma is noted. Kidneys and ureters: Unremarkable. Bladder: Bladder is distended without focal abnormality. Reproductive organs: Prostatic calcifications are seen which may represent prior hemorrhage or granulomatous disease. Bowel: A hiatal hernia is seen. A few distended loops of small bowel are seen in the left upper quadrant measuring up to 35 mm in diameter. No sharp transition point is noted. The colon is not decompressed. Lymph nodes Retroperitoneal: Unremarkable. Mesenteric: Unremarkable. Pelvic: Unremarkable. Peritoneum: Normal Vessels: Atherosclerotic calcifications are seen. Abdominal wall: A battery-powered device is in the left lower quadrant soft tissues. Bones: Degenerative changes in the visualized spine. IMPRESSION: Multiple mildly dilated loops of small bowel predominantly in the left upper quadrant. These are favored to represent focal ileus, enteritis, or possibly early partial bowel obstruction. No evidence of high-grade obstruction is seen.
[2021-02-15] MEDS: SUCRALFATE 1 GM TAB PO SCH ×4 (12:58→20:45)
[2021-02-15] MEDS: ESCITALOPRAM OXALATE 10 MG TAB PO SCH (12:59)
[2021-02-15] MEDS: FLUTICASONE/VILANTEROL 200/25MCG 14 PUFFS/INHALER INH SCH (12:59)
[2021-02-15] MEDS: amLODIPine BESYLATE 5 MG TAB PO SCH (12:59)
[2021-02-15] MEDS: METOCLOPRAMIDE HCL 10 MG TABLET PO SCH ×3 (13:00→20:47)
[2021-02-15] MEDS: ADVANCED PROBIOTIC 1250 MG CAPSULE PO SCH ×2 (13:00→20:48)
[2021-02-15] MEDS: MULTIVITAMIN TAB PO SCH (13:00)
[2021-02-15] MEDS: MAGNESIUM OXIDE 400 MG TAB PO SCH ×2 (13:00→20:48)
[2021-02-15] MEDS: GABAPENTIN 100 MG CAP PO SCH ×3 (13:00→20:47)
[2021-02-15] MEDS: MoRPHine SULFATE CR 15 MG TABCR PO SCH (13:00)
[2021-02-15] MEDS: levETIRAcetam 250 MG TAB PO SCH ×2 (13:00→20:46)
[2021-02-15] MEDS: PANTOprazole 40 MG TAB PO SCH (13:01)
--- NOTE | 2021-02-15 13:24 | Pharmacy Report ---
Pharmacy Glycemic Short Note 2 - Date of Service February 15, 2021 - Glycemic Short BSG Results (Last 24 hours): 02/14/21 02/14/21 02/14/21 16:00 20:19 20:19 Glucose POC Glucose 180 H 45 L* 43 L* 02/14/21 02/15/21 02/15/21 20:48 07:04 07:24 Glucose 91 POC Glucose 72 98 02/15/21 11:23 Glucose POC Glucose 173 H OUTPATIENT ANTIDIABETIC REGIMEN: * Basaglar 7 units HS * Humalog per scale ASSESSMENT: 02/15/21 * Patient's BSGs yesterday were [id number] mg/dL and fasting today is 98 mg/dL. * Patient received 24 units of insulin yesterday (7 units of basal and 17 units of bolus). * Will continue with Lantus 7 units nightly as this has proven effective in the past. * Loosen CF due to hypoglycemia at bedtime. Background * Mr Hamilton is a 55 y/o M with a PMH of T1DM who presents with hypertensive urgency and N/V. Pharmacy consulted on day 3 of hospitalization. * Patient received 15 units of insulin yesterday (5 units of basal and 10 units of bolus). BSGs [id number] mg/dL. Fasting today 327 mg/dL. * Lunch BSG 57 mg/dL due to overcorrection at breakfast. * Start lantus 7 units--- patient basal deficient and reason for hyperglycemia at breakfast. Give slightly earlier at dinnertime. * Loosen Novolog to parameters that were previously affective. PLAN FOR INPATIENT GLYCEMIC CONTROL: * Basal insulin * Lantus 7 units SQ HS * Bolus insulin * NovoLog per scale ACHS or Q6hrs while NPO * Goal Range: Low 110 mg/dL - High 140 mg/dL * Correction Factor: 55 mg/dL/unit * Nutritional / Prandial insulin per carb ratio of 1 unit per 18 grams CHO consumed PLAN FOR DISCHARGE: * Continue to follow-up with outpatient provider for in-depth insulin adjustments.
[2021-02-15] MEDS ORDERED: oxyCODONE HCL IR 5 MG TAB (IMMEDIATE RELEASE) PO PRN (15:40)
--- NOTE | 2021-02-15 15:45 | Hospitalist Progress Note ---
Date of Service February 15, 2021 Assessment & Plan (1) Asymptomatic hypertensive urgency: (2) Nausea & vomiting: Plan: per Dr. Meier's notes: 55-year-old male with NSCC of lung stage III s/p surgery and incomplete chemo secondary to intolerance, COPD, ulcerative colitis, type I DM with complication [gastroparesis, PDN], chronic pain on narcotics, HTN, past tobacco abuse, CKD [baseline around 2.5-3], chronic anemia and seizure disorder came in 02/12 with chief complaint of abdominal pain associated with nausea and vomiting. Is being managed for the following: #. Nausea and vomiting: Secondary to worsening gastroparesis and severe esophagitis complicated by increased pain medication requirement. H/o gastroparesis,and gastric pacemaker. Also on narcotics for chronic pain. Presented with nausea, vomiting and diarrhea Per patient, he recently visited his motilitist in [facility] and his gastric pacer was tweaked. GI consulted: Increase the Reglan dose to 3 times daily. Per patient, patient is scheduled for upper scope and possible dilation in [facility] on February 22. Patient reporting nausea and vomiting under control, continue with antiemetics as needed. Continue with Reglan. Patient tolerating soft diet, will recommend soft diet up on discharge small volume frequent meals. Patient counseled that upon discharge he will need to eat more of liquid consistency diet, small volume, frequent rather than regular solid diet. -- tolerating diet well emesis has resolved #. Hypertensive urgency: Presented with blood pressure of 164/94 Patient reports that he has always had high blood pressure Blood pressure currently fairly under control continue with home meds Use as needed IV medications per protocol. Follow-up with PCP for reevaluation and dose adjustment as appropriate upon discharge. #. IVAN over Chronic kidney disease stage III: His baseline creatinine used to be 2.5-3 according to his recent labs, Creatinine trended up to 3.78 today, patient reports he has been eating and drinking good and has not been vomiting. - crea still at 3.7 Nephro on board monitor closely #. Type 1 diabetes: His recent HbA1c was 7.4%. Continue his long-acting insulin sliding scale. Monitor the blood sugars. #. Non-small cell lung cancer, stage III, status post surgery, incomplete chemotherapy secondary to tolerance. Needs to follow up with PCP and oncologist. Patient aware. #. History of seizure disorder, currently on Keppra 750 b.i.d. #. Chronic anemia: Hemoglobin seems stable. #. History of tobacco abuse. #. Chronic pain: Continue his home pain medications. Patient states that he needs his pain medication. #. Depression: Continue Lexapro. #. History of chronic obstructive pulmonary disease: Continue home inhalers. DVT prophylaxis: Heparin SQ Admission and Anticipated Discharge Date Admission Date: February 14, 2021 Subjective ff up for vomiting, acute renal failure, etc seen resting in bed, sitting up, comfortable in good spirits states he feels fine overall no vomiting, tolerating diet well no abdominal pain no chest pain, dyspnea, palpitations, dizziness no other symptoms Review of Systems Review of Systems: all noted and negative except for above Physical Exam Physical Exam: General- oriented x 3, not in distress, speaks in sentences with no effort or accessory muscle use Head- atraumatic Eyes- PERRL, EOMI, anicteric ENT- oropharynx clear Neck- supple, no JVD, no adenopathy, no thyromegaly; carotids +2/2, no bruits appreciated Lungs- clear to auscultation bilaterally, no rales/wheezes Heart- normal rate, regular rhythm; no murmur, no gallop, no rub appreciated Abdomen- normal bowel sounds, nondistended, soft, nontender, no masses or hepatosplenomegaly Extremities- no pretibial edema, no calf tenderness; peripheral pulses intact Neuro- alert, oriented x 3; CN 2-12 grossly intact; motor 5/5 bilaterally;sensation 100% on all extremities; no other gross focal neurologic deficits Skin- warm & dry Results & Data Results & [facility] ([facility]) Vital Signs (Past 12 Hours) Vital Signs Temp Pulse Pulse Resp BP Pulse Ox 02/15/21 11:54 36.8 C 84 20 155/82 H 95 02/15/21 08:00 75 02/15/21 07:32 36.6 C 89 18 135/72 91 02/15/21 03:47 36.7 C 91 H 20 108/68 97 all noted and reviewed including below (1) Nausea & vomiting Vomiting Intractability: non-intractable Vomiting type: unspecified Qualified Code(s): R11.2 - Nausea with vomiting, unspecified
[2021-02-15] MEDS ORDERED: MoRPHine SULFATE CR 15 MG TABCR PO SCH (21:00)
[2021-02-15 21:10] LABS: Appearance Urine Clear (Clear); Bacteria Urine Automated Negative (Negative); Bilirubin Urine Negative (Negative); Blood Urine Trace (Negative); Color Urine Yellow; Glucose Urine UA 1+ (Negative); Ketones Urine Negative (Negative); Leukocyte Esterase Urine Negative (Negative); Nitrite Urine Negative (Negative); Protein Urine 3+ (Negative); RBC Urine Automated 0-4 /hpf (0-4); Specific Gravity Urine 1.015 (1.000-1.030); Urobilinogen Urine Negative (Negative)
[2021-02-15 21:27] LABS: Creatinine Urine Random 83.5 mg/dl
[2021-02-15] MEDS: INSULIN GLARGINE SOLOSTAR 100 UNITS/ML 3 ML PEN SQ SCH (21:28)
[2021-02-15 22:32] LABS: Protein Creatinine Ratio Urine 4.1 (0-0.2); Total Protein Urine Random 341.9 mg/dl (0-11.9)
[2021-02-16] MEDS ORDERED: NALOXONE HCL 0.4 MG/1 ML VIAL/CARP IV STA (04:08)
[2021-02-16] MEDS ORDERED: NALOXONE HCL 0.4 MG/1 ML VIAL/CARP ONE (04:15)
[2021-02-16 04:49] LABS: Basophils # (auto) 0.01 K/uL (0-0.2); Basophils % (auto) 0.2 %; Eosinophils # (auto) 0.25 K/uL (0-0.5); Eosinophils % (auto) 5.1 %; Hematocrit (blood only) 30.9 % (42-52); Hemoglobin 9.8 g/dL (14.0-18.0); Lymphocytes # (auto) 1.14 K/uL (1.2-3.4); Lymphocytes % (auto) 23.4 %; Mean Corpuscular Hemoglobin 28.8 pg (25-34); Mean Corpuscular Hgb Conc 31.7 g/dL (32-36); Mean Corpuscular Volume 90.9 fL (80-100); Mean Platelet Volume 10.2 fL (7.4-10.4); Monocytes # (auto) 0.07 K/uL (0.11-0.59); Monocytes % (auto) 1.4 %; Neutrophils # (auto) 3.41 K/uL (1.4-6.5); Neutrophils % (auto) 69.9 %; Platelet Count 281 K/uL (130-400); RDW Coefficient of Variation 14.2 % (11.5-14.5); RDW Standard Deviation 47.5 fL (36.4-46.3); White Blood Count 4.88 K/uL (4.8-10.8)
[2021-02-16 04:50] LABS: Base Excess ABG -7.8 mEq/L (-9-1.8); HCO3 ABG 19 mmol/L (19-24); PCO2 ABG 41 mmHg (35-46); PO2 ABG 62 mmHg (80-95); pH ABG 7.27 (7.35-7.45)
[2021-02-16 04:51] LABS: Allen Test POS (Pos)
[2021-02-16 05:08] LABS: Blood Urea Nitrogen 40 mg/dl (7-18); Calcium 7.8 mg/dl (8.5-10.1); Carbon Dioxide 22 mmol/L (21-32); Chloride 111 mmol/L (98-107); Est GFR (African American) 18.1 ml/min; Est GFR (Non-African American) 15.6 ml/min; Glucose 113 mg/dl (70-99); Potassium 4.7 mmol/L (3.5-5.1); Sodium 138 mmol/L (136-145)
[2021-02-16 05:12] LABS: Troponin I < 0.015 ng/ml (0-0.045)
[2021-02-16] MEDS: HEPARIN SOD 5,000 UNIT/0.5 ML VIAL SQ SCH ×3 (06:11→20:55)
[2021-02-16] MEDS ORDERED: CONSULT PHARMACY STA (07:44)
[2021-02-16] MEDS: INSULIN ASPART 100 UNITS/ML 3 ML PEN SC SCH ×4 (07:54→21:03)
[2021-02-16] MEDS ORDERED: ACETAMINOPHEN 65 ML IV PRN (08:05)
--- NOTE | 2021-02-16 08:09 | XRay Report ---
XR chest 1V portable CLINICAL HISTORY: hypoxia COMPARISON STUDY: Chest radiograph February 12, 2021. FINDINGS: There is no pneumothorax. Small left pleural effusion is noted. There has been development of extensive right lung airspace opacity. Mild left mid lung airspace opacity is present. Cardiac siz e is normal. Mediastinal contours are normal. IMPRESSION: 1. Interval development of extensive right lung airspace opacity and mild left lung opacity since jessi st radiograph of February 12, 2021. This favors pneumonia or aspiration pneumonitis. Asymmetric pulmon morro edema could appear similar. 2. Small left pleural effusion, slightly increased. ACT 112: Negative or not required by law. Electronically signed by: Bryce Perez M.D. 02/16/2021 8:08 AM
[2021-02-16] MEDS ORDERED: CLINDAMYCIN CONSULT ACTIVE PRN (08:28)
[2021-02-16] MEDS ORDERED: CEFEPIME CONSULT ACTIVE PRN (08:28)
[2021-02-16] MEDS: CEFEPIME 2,000 MG in SYRINGE 0 ML IV SCH (09:07)
[2021-02-16] MEDS: CLINDAMYCIN 900 MG in DEXTROSE 5% 50 ML IV SCH ×2 (09:07→16:41)
[2021-02-16] MEDS: SUCRALFATE 1 GM TAB PO SCH ×4 (09:50→20:54)
[2021-02-16] MEDS: CHECK CLONIDINE PATCH PLACEMENT SCH ×3 (09:50→23:31)
[2021-02-16] MEDS: FLUTICASONE/VILANTEROL 200/25MCG 14 PUFFS/INHALER INH SCH (09:51)
[2021-02-16] MEDS: GABAPENTIN 100 MG CAP PO SCH ×3 (10:18→20:52)
[2021-02-16] MEDS: ESCITALOPRAM OXALATE 10 MG TAB PO SCH (10:18)
[2021-02-16] MEDS: ADVANCED PROBIOTIC 1250 MG CAPSULE PO SCH ×2 (10:19→20:52)
[2021-02-16] MEDS: MULTIVITAMIN TAB PO SCH (10:19)
[2021-02-16] MEDS ORDERED: Nursing to Pharmacy Communication SCH (10:30)
[2021-02-16] MEDS: METOCLOPRAMIDE HCL 5 MG TABLET PO SCH ×3 (11:56→20:54)
[2021-02-16] MEDS: amLODIPine BESYLATE 5 MG TAB PO SCH (11:56)
[2021-02-16] MEDS: levETIRAcetam 500 MG TAB PO SCH ×2 (11:56→20:52)
[2021-02-16] MEDS: PANTOprazole 40 MG TAB PO SCH (11:57)
--- NOTE | 2021-02-16 17:29 | Hospitalist Progress Note ---
Date of Service February 16, 2021 Assessment & Plan (1) Asymptomatic hypertensive urgency: (2) Nausea & vomiting: Plan: per Dr. Meier's notes: 55-year-old male with NSCC of lung stage III s/p surgery and incomplete chemo secondary to intolerance, COPD, ulcerative colitis, type I DM with complication [gastroparesis, PDN], chronic pain on narcotics, HTN, past tobacco abuse, CKD [baseline around 2.5-3], chronic anemia and seizure disorder came in 02/12 with chief complaint of abdominal pain associated with nausea and vomiting. Is being managed for the following: #. Nausea and vomiting: Secondary to worsening gastroparesis and severe esophagitis complicated by increased pain medication requirement. H/o gastroparesis,and gastric pacemaker. Also on narcotics for chronic pain. Presented with nausea, vomiting and diarrhea Per patient, he recently visited his motilitist in [facility] and his gastric pacer was tweaked. GI consulted: Increase the Reglan dose to 3 times daily. Per patient, patient is scheduled for upper scope and possible dilation in [facility] on February 22. Patient reporting nausea and vomiting under control, continue with antiemetics as needed. Continue with Reglan. Patient tolerating soft diet, will recommend soft diet up on discharge small volume frequent meals. Patient counseled that upon discharge he will need to eat more of liquid consistency diet, small volume, frequent rather than regular solid diet. -- tolerated diet well emesis has resolved (+) aspiration event overnight Aspiration Pneumonia Hypoxic Respiratory Failure -- off Bipap -- blood cultures pending sputum culture pending urine culture pendinig -- continue Cefepime + Clindamycin monitor #. IVAN over Chronic kidney disease stage III: His baseline creatinine used to be 2.5-3 according to his recent labs, Creatinine trended up to 3.78 today, patient reports he has been eating and drinking good and has not been vomiting. - crea further increasing, now at 4 - meds renally dosed Nephro on board monitor closely #. Hypertensive urgency: Presented with blood pressure of 164/94 Patient reports that he has always had high blood pressure Blood pressure currently fairly under control continue with home meds Use as needed IV medications per protocol. Follow-up with PCP for reevaluation and dose adjustment as appropriate upon discharge #. Type 1 diabetes: His recent HbA1c was 7.4%. Continue his long-acting insulin sliding scale. Monitor the blood sugars. #. Non-small cell lung cancer, stage III, status post surgery, incomplete chemotherapy secondary to tolerance. Needs to follow up with PCP and oncologist. Patient aware. #. History of seizure disorder, currently on Keppra BID #. Chronic anemia: Hemoglobin seems stable. #. History of tobacco abuse. #. Chronic pain: Continue his home pain medications. Patient states that he needs his pain medication. #. Depression: Continue Lexapro. #. History of chronic obstructive pulmonary disease: Continue home inhalers. DVT prophylaxis: Heparin SQ Admission and Anticipated Discharge Date Admission Date: February 14, 2021 Subjective ff up for vomiting, acute on CKD , etc events overnight noted seen at bedside on 3 L NC drowsy, awakens to give brief answers states he feels tired no dyspnea, cough, chest pain denies abdominal pain, nausea/vomiting no other symptoms Review of Systems Review of Systems: all noted and negative except for above Physical Exam Physical Exam: General- oriented x 2, not in distress, speaks in sentences with no effort or accessory muscle use Eyes- anicteric Neck- no JVD Lungs- (+) mild rales at the bases, r>l Heart- normal rate, regular rhythm; no murmurs Abdomen- normal bowel sounds, nondistended, soft, nontender Extremities- no pretibial edema, no calf tenderness Neuro- alert, oriented x 2; no gross focal neurologic deficits Skin- warm & dry Results & Data Results & Data ([facility]) Vital Signs (Past 12 Hours) Vital Signs Temp Pulse Pulse Resp BP Pulse Ox 02/16/21 15:06 36.6 C 81 18 101/59 L 81 L 02/16/21 14:58 82 02/16/21 11:45 37.2 C 89 97 H 102/60 97 02/16/21 08:00 39.4 C H 91 H 97 H 16 115/68 100 all noted and reviewed including below (1) Nausea & vomiting Vomiting Intractability: non-intractable Vomiting type: unspecified Qualified Code(s): R11.2 - Nausea with vomiting, unspecified
--- NOTE | 2021-02-16 17:35 | Nephrology Progress Note ---
Date of Service February 16, 2021 Assessment & Plan (1) Acute on chronic renal failure: Plan: IVAN stage one nonoliguric in setting of rapidly progressive CKD, now stage 4 w/ underlying 1 gm daily albuminuria at least. Slightly worse today but not significantly so. Chemistries and volume status acceptable. Baseline creatinine fall 2020 is 3. In 2020 creatinine ran at baseline high ones to about 2. Prior to this creatinine mid ones from 20 17-20 20. High risk for complications/renal progression and possible this is further progressoin, not just ivan. On the other hand, this is also possible ischemic ATN in the wake of severe HTN on presentation. cannot rule out need for dialysis or biopsy, but still no current urgent indication for either. chemistries ok as is volume status at least on exam. Baseline urine c/w chronic inflammation such as nephropathy or GN or chronic interstitial nephritis. He has 4 g proteinuria here (previously in the 1 to 2 g daily range); longstanding glucosuria indicative of tubular dysfunction. -defer to primary service to titrate down opiate and gabapentin doses metabolites of which can accumulate in renal failure and cause altered mentation -daily bmp -bladder scan and ruiz if > 200 mL retained urine -IV fluids currently on hold; if worsening BUN and creatinine tomorrow we will consider resuming these We talked about his potential need for dialysis and he is open to this if the need arises. -will absolutely need close renal f/u after d/c, possibly in [place] Admission and Anticipated Discharge Date Admission Date: February 14, 2021 Subjective Febrile with concern for aspiration overnight. He does not wear oxygen at home. Currently on broad-spectrum antibiotics. He denies shortness of breath, cough, new or worrisome voiding concerns, worsening lower extremity edema Review of Systems Review of Systems: All systems reviewed & are unremarkable except as noted in Subjective Physical Exam Constitutional: well developed, + ill appearing and + frail appearing; no acute distress Eyes: EOM intact bilaterally and + pinpoint pupils ENMT: Ears: no external ear abnormality Nose: no external nose abnormality Mouth: + dry oral mucous membranes Neck: no nuchal rigidity Respiratory: normal respiratory effort Auscultation: + diminished lung sounds Cardiovascular: Rate/Rhythm: regular rate and regular rhythm Extremities: + edema (Left ankle) Gastrointestinal (Abdomen): Inspection/Auscultation: normal bowel sounds Percussion/Palpation: abdomen soft; abdomen nontender Musculoskeletal: Extremities: + abnormal strength (as above w/ general appearance) Skin: no rashes, warm and dry Neurologic: No tremor, fluent speech, mild generalized weakness Psychiatric: Orientation: oriented x 3 and cooperative Eye Contact: good eye contact Insight: good insight Results & Data ([facility]) Vital Signs (Past 12 Hours) Vital Signs Temp Pulse Pulse Resp BP Pulse Ox 02/16/21 15:06 36.6 C 81 18 101/59 L 81 L 02/16/21 14:58 82 02/16/21 11:45 37.2 C 89 97 H 102/60 97 02/16/21 08:00 39.4 C H 91 H 97 H 16 115/68 100 Laboratory Results 02/16/21 04:39 02/16/21 04:39
[2021-02-16] MEDS ORDERED: oxyCODONE HCL IR 5 MG TAB (IMMEDIATE RELEASE) PO STA (20:25)
[2021-02-16] MEDS: INSULIN GLARGINE SOLOSTAR 100 UNITS/ML 3 ML PEN SQ SCH (21:05)
--- NOTE | 2021-02-16 22:31 | Electrocardiogram Report ---
Test Reason : Blood Pressure : / mmHG Vent. Rate : 094 BPM Atrial Rate : 094 BPM P-R Int : 156 ms QRS Dur : 082 ms QT Int : 350 ms P-R-T Axes : 036 065 048 degrees QTc Int : 437 ms Sinus rhythm with Premature atrial complexes Cannot rule out Septal infarct Abnormal ECG When compared with ECG of 11-FEB-2021 22:13, Premature atrial complexes are now Present Questionable change in initial forces of Anterior leads Non-specific change in ST segment in Inferior leads T wave amplitude has decreased in Anterolateral leads Confirmed by Chris Duke ([id number]) on 02/16/2021 10:31:14 PM Referred By: REFERRED SELF Confirmed By:Chris Duke
[2021-02-16 22:40] LABS: Appearance Urine Cloudy (Clear); Bacteria Urine Automated Negative (Negative); Bilirubin Urine Negative (Negative); Blood Urine Negative (Negative); Color Urine Yellow; Epithelial Cell Urine Auto 20-30 /lpf (0-5); Glucose Urine UA Trace (Negative); Ketones Urine Negative (Negative); Leukocyte Esterase Urine Negative (Negative); Nitrite Urine Negative (Negative); Protein Urine 3+ (Negative); Specific Gravity Urine 1.018 (1.000-1.030); Urobilinogen Urine Negative (Negative)
[2021-02-17] MEDS: CLINDAMYCIN 900 MG in DEXTROSE 5% 50 ML IV SCH ×3 (01:08→16:22)
[2021-02-17] MEDS: HEPARIN SOD 5,000 UNIT/0.5 ML VIAL SQ SCH ×3 (05:42→21:42)
[2021-02-17 07:03] LABS: BUN Creatinine Ratio 13.7 (10-20); Calcium 7.9 mg/dl (8.5-10.1); Creatinine Clr Calc Pharmacy 19.6 ml/min; Est GFR (African American) 17.7 ml/min; Est GFR (Non-African American) 15.3 ml/min; Potassium 4.5 mmol/L (3.5-5.1)
[2021-02-17] MEDS: CEFEPIME 2,000 MG in SYRINGE 0 ML IV SCH (08:28)
[2021-02-17] MEDS: METOCLOPRAMIDE HCL 5 MG TABLET PO SCH ×3 (08:30→21:03)
[2021-02-17] MEDS: ESCITALOPRAM OXALATE 10 MG TAB PO SCH (08:31)
[2021-02-17] MEDS: CHECK CLONIDINE PATCH PLACEMENT SCH ×2 (08:31→16:00)
[2021-02-17] MEDS: SUCRALFATE 1 GM TAB PO SCH ×4 (08:31→21:44)
[2021-02-17] MEDS: ADVANCED PROBIOTIC 1250 MG CAPSULE PO SCH ×2 (08:32→21:45)
[2021-02-17] MEDS: levETIRAcetam 500 MG TAB PO SCH ×2 (08:32→21:42)
[2021-02-17] MEDS: amLODIPine BESYLATE 5 MG TAB PO SCH (08:32)
[2021-02-17] MEDS: FLUTICASONE/VILANTEROL 200/25MCG 14 PUFFS/INHALER INH SCH (08:32)
[2021-02-17] MEDS: PANTOprazole 40 MG TAB PO SCH (08:33)
[2021-02-17] MEDS: GABAPENTIN 100 MG CAP PO SCH ×2 (08:33→21:42)
[2021-02-17] MEDS: MULTIVITAMIN TAB PO SCH (08:33)
[2021-02-17] MEDS: INSULIN ASPART 100 UNITS/ML 3 ML PEN SC SCH ×4 (08:39→21:54)
--- NOTE | 2021-02-17 11:55 | Pharmacy Report ---
Pharmacy Glycemic Short Note 2 - Date of Service February 17, 2021 - Glycemic Short BSG Results (Last 24 hours): 02/16/21 02/16/21 02/17/21 16:17 20:24 06:03 Glucose 170 H POC Glucose 127 H 107 H 02/17/21 02/17/21 07:38 11:07 Glucose POC Glucose 202 H 141 H OUTPATIENT ANTIDIABETIC REGIMEN: * Basaglar 7 units HS * Humalog per scale ASSESSMENT: 02/17/21 * Patient's BSGs yesterday were [phone] mg/dL and fasting today is 202 mg/dL. * Patient received 12 units of insulin yesterday (7 units of basal and 5 units of bolus). * Will continue with Lantus 7 units nightly as this has proven effective in the past. * Continue Novolog. 02/15/21 * Patient's BSGs yesterday were [phone] mg/dL and fasting today is 98 mg/dL. * Patient received 24 units of insulin yesterday (7 units of basal and 17 units of bolus). * Will continue with Lantus 7 units nightly as this has proven effective in the past. * Loosen CF due to hypoglycemia at bedtime. Background * Mr Hamilton is a 55 y/o M with a PMH of T1DM who presents with hypertensive urgency and N/V. Pharmacy consulted on day 3 of hospitalization. * Patient received 15 units of insulin yesterday (5 units of basal and 10 units of bolus). BSGs [phone] mg/dL. Fasting today 327 mg/dL. * Lunch BSG 57 mg/dL due to overcorrection at breakfast. * Start lantus 7 units--- patient basal deficient and reason for hyperglycemia at breakfast. Give slightly earlier at dinnertime. * Loosen Novolog to parameters that were previously affective. PLAN FOR INPATIENT GLYCEMIC CONTROL: * Basal insulin * Lantus 7 units SQ HS * Bolus insulin * NovoLog per scale ACHS or Q6hrs while NPO * Goal Range: Low 110 mg/dL - High 140 mg/dL * Correction Factor: 55 mg/dL/unit * Nutritional / Prandial insulin per carb ratio of 1 unit per 18 grams CHO consumed PLAN FOR DISCHARGE: * Continue to follow-up with outpatient provider for in-depth insulin adjustments.
--- NOTE | 2021-02-17 13:54 | Hospitalist Progress Note ---
Date of Service February 17, 2021 Assessment & Plan (1) Asymptomatic hypertensive urgency: (2) Nausea & vomiting: Plan: per Dr. Meier's notes: 55-year-old male with NSCC of lung stage III s/p surgery and incomplete chemo secondary to intolerance, COPD, ulcerative colitis, type I DM with complication [gastroparesis, PDN], chronic pain on narcotics, HTN, past tobacco abuse, CKD [baseline around 2.5-3], chronic anemia and seizure disorder came in 02/12 with chief complaint of abdominal pain associated with nausea and vomiting. Is being managed for the following: #. Nausea and vomiting: Secondary to worsening gastroparesis and severe esophagitis complicated by increased pain medication requirement. H/o gastroparesis,and gastric pacemaker. Also on narcotics for chronic pain. Presented with nausea, vomiting and diarrhea Per patient, he recently visited his motilitist in [facility] and his gastric pacer was tweaked. GI consulted: Increase the Reglan dose to 3 times daily. Per patient, patient is scheduled for upper scope and possible dilation in [facility] on February 22. Patient reporting nausea and vomiting under control, continue with antiemetics as needed. Continue with Reglan. Patient tolerating soft diet, will recommend soft diet up on discharge small volume frequent meals. Patient counseled that upon discharge he will need to eat more of liquid consistency diet, small volume, frequent rather than regular solid diet. -- has some nausea today but tolerating diet well continue Reglan- renally dosed Aspiration Pneumonia Hypoxic Respiratory Failure -- off Bipap -- blood cultures pending sputum culture pending urine culture pendinig -- afebrile has mild cough -- continue Cefepime + Clindamycin Day 2 monitor #. IVAN over Chronic kidney disease stage III: His baseline creatinine used to be 2.5-3 according to his recent labs, Creatinine trended up to 3.78 today, patient reports he has been eating and drinking good and has not been vomiting. - crea further increasing, now at 4.1 - meds renally dosed Nephro on board monitor closely #. Hypertensive urgency: Presented with blood pressure of 164/94 Patient reports that he has always had high blood pressure Blood pressure currently fairly under control continue with home meds Use as needed IV medications per protocol. Follow-up with PCP for reevaluation and dose adjustment as appropriate upon discharge #. Type 1 diabetes: His recent HbA1c was 7.4%. Continue his long-acting insulin sliding scale. Monitor the blood sugars. #. Non-small cell lung cancer, stage III, status post surgery, incomplete chemotherapy secondary to tolerance. Needs to follow up with PCP and oncologist. Patient aware. #. History of seizure disorder, currently on Keppra BID #. Chronic anemia: Hemoglobin seems stable. #. History of tobacco abuse. #. Chronic pain: Continue his home pain medications. Patient states that he needs his pain medication. #. Depression: Continue Lexapro. #. History of chronic obstructive pulmonary disease: Continue home inhalers. DVT prophylaxis: Heparin SQ Admission and Anticipated Discharge Date Admission Date: February 14, 2021 Subjective ff up for gastroparesis, acute renal failure, aspiration, etc seen resting in bed, comfortable on 2 L NC states he feels tired today has mild dyspnea and cough no chest pain has some nausea, but tolerating food well no other symptoms Review of Systems Review of Systems: all noted and negative except for above Physical Exam Physical Exam: General- oriented x 3, not in distress, speaks in sentences with no effort or accessory muscle use Eyes- anicteric Neck- no JVD Lungs- mild rhonchi at the bases r>l Heart- normal rate, regular rhythm; no murmurs Abdomen- normal bowel sounds, nondistended, soft, nontender Extremities- no pretibial edema, no calf tenderness Neuro- alert, oriented x 3; no gross focal neurologic deficits Skin- warm & dry Results & Data Results & Data ([facility]) Vital Signs (Past 12 Hours) Vital Signs Temp Pulse Pulse Resp BP Pulse Ox 02/17/21 11:02 36.6 C 83 18 131/69 95 02/17/21 08:00 36.8 C 78 75 18 128/74 99 02/17/21 04:40 36.5 C 79 18 104/60 94 all noted and reviewed including below (1) Nausea & vomiting Vomiting Intractability: non-intractable Vomiting type: unspecified Qualified Code(s): R11.2 - Nausea with vomiting, unspecified
[2021-02-17] MEDS ORDERED: ONDANSETRON INJ 2 MG/ML 2 ML VIAL IV STA (21:01)
[2021-02-17] MEDS: INSULIN GLARGINE SOLOSTAR 100 UNITS/ML 3 ML PEN SQ SCH (21:46)
[2021-02-18] MEDS: CHECK CLONIDINE PATCH PLACEMENT SCH ×4 (00:42→23:37)
[2021-02-18] MEDS: CLINDAMYCIN 900 MG in DEXTROSE 5% 50 ML IV SCH ×3 (00:44→16:43)
[2021-02-18] MEDS: HEPARIN SOD 5,000 UNIT/0.5 ML VIAL SQ SCH ×3 (05:18→20:35)
[2021-02-18] MEDS ORDERED: HYDROmorphone INJ 0.5 MG/0.5 ML SYR IV STA (05:30)
[2021-02-18 07:08] LABS: BUN Creatinine Ratio 13.6 (10-20); Creatinine Clr Calc Pharmacy 20.1 ml/min; Est GFR (African American) 18.2 ml/min; Est GFR (Non-African American) 15.7 ml/min; Potassium 4.4 mmol/L (3.5-5.1)
[2021-02-18] MEDS: PANTOprazole 40 MG TAB PO SCH (08:25)
[2021-02-18] MEDS: METOCLOPRAMIDE HCL 5 MG TABLET PO SCH ×3 (08:25→20:30)
[2021-02-18] MEDS: ESCITALOPRAM OXALATE 10 MG TAB PO SCH (08:26)
[2021-02-18] MEDS: GABAPENTIN 100 MG CAP PO SCH ×2 (08:26→20:29)
[2021-02-18] MEDS: MULTIVITAMIN TAB PO SCH (08:26)
[2021-02-18] MEDS: levETIRAcetam 500 MG TAB PO SCH ×2 (08:27→20:58)
[2021-02-18] MEDS: FLUTICASONE/VILANTEROL 200/25MCG 14 PUFFS/INHALER INH SCH (08:28)
[2021-02-18] MEDS: CEFEPIME 2,000 MG in SYRINGE 0 ML IV SCH (08:41)
[2021-02-18] MEDS: ADVANCED PROBIOTIC 1250 MG CAPSULE PO SCH ×2 (08:42→20:29)
[2021-02-18] MEDS: SUCRALFATE 1 GM TAB PO SCH ×4 (08:42→20:58)
[2021-02-18] MEDS: INSULIN ASPART 100 UNITS/ML 3 ML PEN SC SCH ×4 (08:58→21:18)
[2021-02-18] MEDS ORDERED: LACTATED RINGER'S 500 ML IV SCH (09:00)
[2021-02-18] MEDS: amLODIPine BESYLATE 5 MG TAB PO SCH (09:27)
[2021-02-18] MEDS: MoRPHine SULFATE 5 MG/0.25 ML UDP PO SCH ×2 (11:43→20:36)
--- NOTE | 2021-02-18 16:05 | Nephrology Progress Note ---
Date of Service February 18, 2021 Assessment & Plan (1) Acute on chronic renal failure: Plan: IVAN stage one nonoliguric in setting of rapidly progressive CKD, now stage 4 w/ underlying 1 gm daily albuminuria at least. Slightly worse today but not significantly so. Chemistries and volume status acceptable. Baseline creatinine fall 2020 is 3. In 2020 creatinine ran at baseline high ones to about 2. Prior to this creatinine mid ones from 20 17-20 20. High risk for complications/renal progression and possible this is further progressoin, not just ivan. On the other hand, this is also possible ischemic ATN in the wake of severe HTN on presentation. cannot rule out need for dialysis or biopsy, but still no current urgent indication for either. chemistries ok as is volume status at least on exam. Baseline urine c/w chronic inflammation such as nephropathy or GN or chronic interstitial nephritis. He has 4 g proteinuria here (previously in the 1 to 2 g daily range); longstanding glucosuria indicative of tubular dysfunction. no evidence to date of urinary retention -defer to primary service to titrate down opiate and gabapentin doses metabolites of which can accumulate in renal failure and cause altered mentation -daily bmp -with worsening hyperchloremic acidosis and unchanged renal function, trial of LR 500 mL today We talked about his potential need for dialysis and he is open to this if the need arises. -will absolutely need close renal f/u after d/c, possibly in [place] Admission and Anticipated Discharge Date Admission Date: February 14, 2021 Subjective Complains of neuropathic pain. Denies shortness of breath, other uncontrolled pain sources, nausea or vomiting, new or worrisome voiding concerns, poor po Review of Systems Review of Systems: All systems reviewed & are unremarkable except as noted in Subjective Physical Exam Constitutional: well developed, + ill appearing and + frail appearing; no acute distress Eyes: EOM intact bilaterally ENMT: Ears: no external ear abnormality Nose: no external nose abnormality Mouth: + dry oral mucous membranes Neck: no nuchal rigidity Respiratory: normal respiratory effort and + cough (occasional) Auscultation: + diminished lung sounds Cardiovascular: Rate/Rhythm: regular rate and regular rhythm Extremities: + edema (Left ankle) Gastrointestinal (Abdomen): Inspection/Auscultation: normal bowel sounds Percussion/Palpation: abdomen soft; abdomen nontender Musculoskeletal: Extremities: + abnormal strength (as above w/ general appearance) Skin: no rashes, warm and dry Neurologic: villarreal, fluent speech, no tremor Psychiatric: Orientation: oriented x 3 and cooperative Eye Contact: good eye contact Insight: good insight Results & Data ([facility]) Vital Signs (Past 12 Hours) Vital Signs Temp Pulse Pulse Resp BP Pulse Ox 02/18/21 15:49 80 02/18/21 15:15 36.7 C 80 18 154/77 H 95 02/18/21 11:27 36.5 C 77 16 139/71 94 02/18/21 08:00 36.6 C 88 70 16 119/69 95 Laboratory Results 02/16/21 04:39 02/18/21 06:11
--- NOTE | 2021-02-18 17:14 | Hospitalist Progress Note ---
Date of Service February 18, 2021 Assessment & Plan (1) Asymptomatic hypertensive urgency: (2) Nausea & vomiting: Plan: per Dr. Meier's notes: 55-year-old male with NSCC of lung stage III s/p surgery and incomplete chemo secondary to intolerance, COPD, ulcerative colitis, type I DM with complication [gastroparesis, PDN], chronic pain on narcotics, HTN, past tobacco abuse, CKD [baseline around 2.5-3], chronic anemia and seizure disorder came in 02/12 with chief complaint of abdominal pain associated with nausea and vomiting. Is being managed for the following: #. Nausea and vomiting: Secondary to worsening gastroparesis and severe esophagitis complicated by increased pain medication requirement. H/o gastroparesis,and gastric pacemaker. Also on narcotics for chronic pain. Presented with nausea, vomiting and diarrhea Per patient, he recently visited his motilitist in [facility] and his gastric pacer was tweaked. GI consulted: Increase the Reglan dose to 3 times daily. Per patient, patient is scheduled for upper scope and possible dilation in [facility] on February 22. Patient reporting nausea and vomiting under control, continue with antiemetics as needed. Continue with Reglan. Patient tolerating soft diet, will recommend soft diet up on discharge small volume frequent meals. Patient counseled that upon discharge he will need to eat more of liquid consistency diet, small volume, frequent rather than regular solid diet. --Patient reports some nausea today We will resume morphine 5 mg twice daily for now Continue to monitor Aspiration Pneumonia Hypoxic Respiratory Failure -- off Bipap -- blood cultures negative so far sputum culture pending collection urine culture pending -- afebrile has mild cough -- continue Cefepime + Clindamycin Day 3 monitor #. IVAN over Chronic kidney disease stage III: His baseline creatinine used to be 2.5-3 according to his recent labs, Creatinine trended up to 3.78 today, patient reports he has been eating and drinking good and has not been vomiting. - crea further increasing, remains at 4.0 - meds renally dosed Trial of IV LR ordered Nephro on board monitor closely #. Hypertensive urgency: Presented with blood pressure of 164/94 Patient reports that he has always had high blood pressure Blood pressure currently fairly under control continue with home meds Use as needed IV medications per protocol. Follow-up with PCP for reevaluation and dose adjustment as appropriate upon discharge #. Type 1 diabetes: His recent HbA1c was 7.4%. Continue his long-acting insulin sliding scale. Had hypoglycemic episode today DC Lantus We will consult pharmacy glycemic control consult Acute renal failure likely contributing to hypoglycemia #. Non-small cell lung cancer, stage III, status post surgery, incomplete chemotherapy secondary to tolerance. Needs to follow up with PCP and oncologist. Patient aware. #. History of seizure disorder, currently on Keppra BID #. Chronic anemia: Hemoglobin seems stable. #. History of tobacco abuse. #. Chronic pain: Continue his home pain medications. Patient states that he needs his pain medication. #. Depression: Continue Lexapro. #. History of chronic obstructive pulmonary disease: Continue home inhalers. DVT prophylaxis: Heparin SQ Admission and Anticipated Discharge Date Admission Date: February 14, 2021 Subjective Follow-up for gastroparesis, acute renal failure, etc. Seen resting in bed, sleeping but easily awakened States he does not feel too well today, very tired Also has some nausea Denies shortness of breath, chest pain palpitations, dizziness Denies fevers or chills No other symptoms Review of Systems Review of Systems: all noted and negative except for above Physical Exam Physical Exam: General- oriented x 3, not in distress, speaks in sentences with no effort or accessory muscle use Appears fatigued and weak Eyes- anicteric Neck- no JVD Lungs-positive mild rales bilaterally, no wheezing Good air entry bilaterally Heart- normal rate, regular rhythm; no murmurs Abdomen- normal bowel sounds, nondistended, soft, nontender Extremities- no pretibial edema, no calf tenderness Neuro- alert, oriented x 3; no gross focal neurologic deficits Skin- warm & dry Results & Data Results & Data ([facility]) Vital Signs (Past 12 Hours) Vital Signs Temp Pulse Pulse Resp BP Pulse Ox 02/18/21 15:49 80 02/18/21 15:15 36.7 C 80 18 154/77 H 95 02/18/21 11:27 36.5 C 77 16 139/71 94 02/18/21 08:00 36.6 C 88 70 16 119/69 95 all noted and reviewed including below (1) Nausea & vomiting Vomiting Intractability: non-intractable Vomiting type: unspecified Qualified Code(s): R11.2 - Nausea with vomiting, unspecified
[2021-02-18] MEDS ORDERED: PHARMACY GLYCEMIC MGMT CONSULT PRN (17:19)
[2021-02-18] MEDS: INSULIN GLARGINE SOLOSTAR 100 UNITS/ML 3 ML PEN SQ SCH (20:39)
[2021-02-19] MEDS: CLINDAMYCIN 900 MG in DEXTROSE 5% 50 ML IV SCH ×3 (00:11→17:22)
[2021-02-19] MEDS: HEPARIN SOD 5,000 UNIT/0.5 ML VIAL SQ SCH ×3 (05:28→21:54)
[2021-02-19] MEDS: INSULIN ASPART 100 UNITS/ML 3 ML PEN SC SCH ×4 (08:19→21:54)
[2021-02-19] MEDS: ESCITALOPRAM OXALATE 10 MG TAB PO SCH (08:23)
[2021-02-19] MEDS: GABAPENTIN 100 MG CAP PO SCH (08:24)
[2021-02-19] MEDS: CYCLOBENZAPRINE HCL 5 MG TAB PO PRN (08:24)
[2021-02-19] MEDS: METOCLOPRAMIDE HCL 5 MG TABLET PO SCH ×3 (08:25→21:53)
[2021-02-19] MEDS: levETIRAcetam 500 MG TAB PO SCH (08:25)
[2021-02-19] MEDS: SUCRALFATE 1 GM TAB PO SCH ×4 (08:26→21:53)
[2021-02-19] MEDS: amLODIPine BESYLATE 5 MG TAB PO SCH (08:28)
[2021-02-19] MEDS: ADVANCED PROBIOTIC 1250 MG CAPSULE PO SCH ×2 (08:29→21:54)
[2021-02-19] MEDS: MULTIVITAMIN TAB PO SCH (08:30)
[2021-02-19] MEDS: PANTOprazole 40 MG TAB PO SCH (08:30)
[2021-02-19] MEDS: CEFEPIME 2,000 MG in SYRINGE 0 ML IV SCH (10:05)
[2021-02-19] MEDS: MoRPHine SULFATE 5 MG/0.25 ML UDP PO SCH (10:05)
[2021-02-19] MEDS: FLUTICASONE/VILANTEROL 200/25MCG 14 PUFFS/INHALER INH SCH (10:06)
[2021-02-19 10:07] LABS: BUN Creatinine Ratio 12.7 (10-20); Calcium 8.2 mg/dl (8.5-10.1); Creatinine Clr Calc Pharmacy 20.5 ml/min; Est GFR (African American) 18.6 ml/min; Est GFR (Non-African American) 16.1 ml/min; Potassium 4.4 mmol/L (3.5-5.1)
[2021-02-19] MEDS: CHECK CLONIDINE PATCH PLACEMENT SCH ×2 (10:07→17:06)
--- NOTE | 2021-02-19 10:58 | Hospitalist Progress Note ---
Date of Service February 19, 2021 Assessment & Plan (1) Asymptomatic hypertensive urgency: (2) Nausea & vomiting: Plan: per Dr. Meier's notes: 55-year-old male with NSCC of lung stage III s/p surgery and incomplete chemo secondary to intolerance, COPD, ulcerative colitis, type I DM with complication [gastroparesis, PDN], chronic pain on narcotics, HTN, past tobacco abuse, CKD [baseline around 2.5-3], chronic anemia and seizure disorder came in 02/12 with chief complaint of abdominal pain associated with nausea and vomiting. Is being managed for the following: #. Nausea and vomiting: Secondary to worsening gastroparesis and severe esophagitis complicated by increased pain medication requirement. H/o gastroparesis,and gastric pacemaker. Also on narcotics for chronic pain. Presented with nausea, vomiting and diarrhea Per patient, he recently visited his motilitist in [facility] and his gastric pacer was tweaked. GI consulted: Increase the Reglan dose to 3 times daily. Per patient, patient is scheduled for upper scope and possible dilation in [facility] on February 22. Patient reporting nausea and vomiting under control, continue with antiemetics as needed. Continue with Reglan. Patient tolerating soft diet, will recommend soft diet up on discharge small volume frequent meals. Patient counseled that upon discharge he will need to eat more of liquid consistency diet, small volume, frequent rather than regular solid diet. --nausea improving continue morphine 5 mg twice daily Continue to monitor Aspiration Pneumonia Hypoxic Respiratory Failure -- off Bipap -- blood cultures negative so far sputum culture pending collection urine culture negative so far -- afebrile has mild cough Remains on 2 L of oxygen via nasal cannula -- continue Cefepime + Clindamycin Day 4 monitor #. IVAN over Chronic kidney disease stage III: His baseline creatinine used to be 2.5-3 according to his recent labs, Creatinine trended up to 3.78 today, patient reports he has been eating and drinking good and has not been vomiting. - crea slightly improved from 4-3.9 - meds renally dosed Trial of IV LR ordered yesterday, had good urine output Nephro on board monitor closely #. Hypertensive urgency: Presented with blood pressure of 164/94 Patient reports that he has always had high blood pressure Blood pressure currently fairly under control continue with home meds Use as needed IV medications per protocol. Follow-up with PCP for reevaluation and dose adjustment as appropriate upon discharge #. Type 1 diabetes: His recent HbA1c was 7.4%. Continue his long-acting insulin sliding scale. Had hypoglycemic episode yesterday Improved We will consult pharmacy glycemic control consult Acute renal failure likely contributing to hypoglycemia #. Non-small cell lung cancer, stage III, status post surgery, incomplete chemotherapy secondary to tolerance. Needs to follow up with PCP and oncologist. Patient aware. #. History of seizure disorder, currently on Keppra BID #. Chronic anemia: Hemoglobin seems stable. #. History of tobacco abuse. #. Chronic pain: Continue his home pain medications. Patient states that he needs his pain medication. #. Depression: Continue Lexapro. #. History of chronic obstructive pulmonary disease: Continue home inhalers. DVT prophylaxis: Heparin SQ Admission and Anticipated Discharge Date Admission Date: February 14, 2021 Subjective ff up for acute renal failure, pneumonia , etc seen resting in bed, not in distress appears tired states he feels about the same as yesterday- has malaise nausea improved (+) BM no dyspnea, cough, chest pain no chills no other symptoms Review of Systems Review of Systems: all noted and negative except for above Physical Exam Physical Exam: General- oriented x 3, not in distress, speaks in sentences with no effort or accessory muscle use Eyes- anicteric Neck- no JVD Lungs- mild rales at the bases no wheezing Heart- normal rate, regular rhythm; no murmurs Abdomen- normal bowel sounds, nondistended, soft, nontender Extremities- no pretibial edema, no calf tenderness Neuro- alert, oriented x 3; no gross focal neurologic deficits Skin- warm & dry Results & Data Results & Data ([facility]) Vital Signs (Past 12 Hours) Vital Signs Temp Pulse Resp BP Pulse Ox 02/19/21 08:12 36.7 C 76 20 144/66 H 90 02/19/21 04:38 36.9 C 90 18 162/82 H 90 02/18/21 23:34 36.6 C 85 20 136/64 94 all noted and reviewed including below (1) Nausea & vomiting Vomiting Intractability: non-intractable Vomiting type: unspecified Qualified Code(s): R11.2 - Nausea with vomiting, unspecified
--- NOTE | 2021-02-19 12:18 | Pharmacy Report ---
Pharmacy Glycemic Short Note 2 - Date of Service February 19, 2021 - Glycemic Short BSG Results (Last 24 hours): 02/18/21 02/18/21 02/19/21 16:13 20:21 01:12 Glucose POC Glucose 131 H 182 H 198 H 02/19/21 02/19/21 02/19/21 06:40 08:51 11:29 Glucose 93 POC Glucose 147 H 73 OUTPATIENT ANTIDIABETIC REGIMEN: * Basaglar 7 units HS * Humalog per scale ASSESSMENT: 02/19/21 * Patient's BSGs yesterday were [phone] mg/dL and fasting today is 147 mg/dL. * Patient received 17 units of insulin yesterday (7 units of basal and 10 units of bolus). * Will continue with Lantus 7 units nightly as this has proven effective in the past. * Continue Novolog but will increase goal range as patient's BSGs have corrected lower than desired. 02/17/21 * Patient's BSGs yesterday were [phone] mg/dL and fasting today is 202 mg/dL. * Patient received 12 units of insulin yesterday (7 units of basal and 5 units of bolus). * Will continue with Lantus 7 units nightly as this has proven effective in the past. * Continue Novolog. 02/15/21 * Patient's BSGs yesterday were 498-36-572-45 mg/dL and fasting today is 98 mg/dL. * Patient received 24 units of insulin yesterday (7 units of basal and 17 units of bolus). * Will continue with Lantus 7 units nightly as this has proven effective in the past. * Loosen CF due to hypoglycemia at bedtime. Background * Mr Hamilton is a 55 y/o M with a PMH of T1DM who presents with hypertensive urgency and N/V. Pharmacy consulted on day 3 of hospitalization. * Patient received 15 units of insulin yesterday (5 units of basal and 10 units of bolus). BSGs 111-163-001-91 mg/dL. Fasting today 327 mg/dL. * Lunch BSG 57 mg/dL due to overcorrection at breakfast. * Start lantus 7 units--- patient basal deficient and reason for hyperglycemia at breakfast. Give slightly earlier at dinnertime. * Loosen Novolog to parameters that were previously affective. PLAN FOR INPATIENT GLYCEMIC CONTROL: * Basal insulin * Lantus 7 units SQ HS * Bolus insulin * NovoLog per scale ACHS or Q6hrs while NPO * Goal Range: Low 120 mg/dL - High 160 mg/dL * Correction Factor: 55 mg/dL/unit * Nutritional / Prandial insulin per carb ratio of 1 unit per 18 grams CHO consumed PLAN FOR DISCHARGE: * Continue to follow-up with outpatient provider for in-depth insulin adjustments.
--- NOTE | 2021-02-19 14:11 | Nephrology Progress Note ---
Date of Service February 19, 2021 Assessment & Plan (1) Acute on chronic renal failure: Plan: IVAN stage one nonoliguric in setting of rapidly progressive CKD, now stage 4 w/ underlying 1 gm daily albuminuria at least. Slightly worse today but not significantly so. Chemistries and volume status acceptable. Baseline creatinine fall 2020 is 3. In 2020 creatinine ran at baseline high ones to about 2. Prior to this creatinine mid ones from 20 17-20 20. High risk for complications/renal progression and possible this is further progressoin, not just ivan. On the other hand, this is also possible ischemic ATN in the wake of severe HTN on presentation. cannot rule out need for dialysis or biopsy, but still no current urgent indication for either. chemistries ok as is volume status at least on exam. Baseline urine c/w chronic inflammation such as nephropathy or GN or chronic interstitial nephritis. He has 4 g proteinuria here (previously in the 1 to 2 g daily range); longstanding glucosuria indicative of tubular dysfunction. no evidence to date of urinary retention -defer to primary service to titrate down opiate and gabapentin doses metabolites of which can accumulate in renal failure and cause altered mentation -daily bmp -with improved but ongoing hyperchloremic acidosis and slightly improved renal function, trial of more LR -- 1000 mL today We talked about his potential need for dialysis and he is open to this if the need arises. -will absolutely need close renal f/u after d/c, possibly in [place] Admission and Anticipated Discharge Date Admission Date: February 14, 2021 Subjective resting quietly; denies worsenign sob, uncontrolled pain, n/v, poor po intake, voiding concerns Review of Systems Review of Systems: All systems reviewed & are unremarkable except as noted in Subjective Physical Exam Constitutional: well developed, + ill appearing and + frail appearing; no acute distress Eyes: EOM intact bilaterally ENMT: Ears: no external ear abnormality Nose: no external nose abnormality Mouth: + dry oral mucous membranes Neck: no nuchal rigidity Respiratory: normal respiratory effort and + cough (occasional) Auscultation: + diminished lung sounds Cardiovascular: Rate/Rhythm: regular rate and regular rhythm Extremities: + edema (Left ankle) Gastrointestinal (Abdomen): Inspection/Auscultation: normal bowel sounds Percussion/Palpation: abdomen soft; abdomen nontender Musculoskeletal: Extremities: + abnormal strength (as above w/ general appearance) Skin: no rashes, warm and dry Psychiatric: Orientation: oriented x 3 and cooperative Eye Contact: good eye contact Insight: good insight Results & Data ([facility]) Vital Signs (Past 12 Hours) Vital Signs Temp Pulse Resp BP Pulse Ox 02/19/21 11:31 36.8 C 78 20 156/67 H 90 02/19/21 08:12 36.7 C 76 20 144/66 H 90 02/19/21 04:38 36.9 C 90 18 162/82 H 90 Laboratory Results 02/16/21 04:39 02/19/21 08:51
[2021-02-19] MEDS ORDERED: LACTATED RINGER'S 1,000 ML IV SCH (14:15)
[2021-02-19 16:24] LABS: Base Excess ABG -8.5 mEq/L (-9-1.8); HCO3 ABG 18 mmol/L (19-24); Oxygen Saturation ABG 87.7 % (90-95); PCO2 ABG 38 mmHg (35-46); PO2 ABG 59 mmHg (80-95); pH ABG 7.28 (7.35-7.45)
[2021-02-19 16:25] LABS: Allen Test Pos (Pos)
[2021-02-19] MEDS ORDERED: cloNIDine HCL 0.1 MG/24 HR TRANSDERM SYS TD SCH (17:00)
[2021-02-19] MEDS: INSULIN GLARGINE SOLOSTAR 100 UNITS/ML 3 ML PEN SQ SCH (21:53)
[2021-02-20] MEDS: CLINDAMYCIN 900 MG in DEXTROSE 5% 50 ML IV SCH ×3 (02:03→16:45)
[2021-02-20] MEDS: CHECK CLONIDINE PATCH PLACEMENT SCH ×3 (02:03→15:23)
[2021-02-20] MEDS: HEPARIN SOD 5,000 UNIT/0.5 ML VIAL SQ SCH ×3 (05:55→20:21)
[2021-02-20] MEDS: INSULIN ASPART 100 UNITS/ML 3 ML PEN SC SCH ×4 (07:36→20:10)
[2021-02-20] MEDS: hydrALAZINE HCL 20 MG/ML VIAL IV PRN (07:47)
[2021-02-20] MEDS: SUCRALFATE 1 GM TAB PO SCH ×4 (07:48→20:20)
[2021-02-20] MEDS: CEFEPIME 2,000 MG in SYRINGE 0 ML IV SCH (09:25)
[2021-02-20 09:26] LABS: Calcium 8.7 mg/dl (8.5-10.1); Creatinine Clr Calc Pharmacy 20.5 ml/min; Est GFR (African American) 18.7 ml/min; Est GFR (Non-African American) 16.1 ml/min; Potassium 4.4 mmol/L (3.5-5.1)
[2021-02-20] MEDS: amLODIPine BESYLATE 5 MG TAB PO SCH (09:26)
[2021-02-20] MEDS: FLUTICASONE/VILANTEROL 200/25MCG 14 PUFFS/INHALER INH SCH (09:27)
[2021-02-20] MEDS: METOCLOPRAMIDE HCL 5 MG TABLET PO SCH ×3 (09:28→20:21)
[2021-02-20] MEDS: ADVANCED PROBIOTIC 1250 MG CAPSULE PO SCH ×2 (09:28→20:20)
[2021-02-20] MEDS: MULTIVITAMIN TAB PO SCH (09:29)
[2021-02-20] MEDS: PANTOprazole 40 MG TAB PO SCH (09:30)
--- NOTE | 2021-02-20 13:07 | Nephrology Progress Note ---
Date of Service February 20, 2021 Assessment & Plan Admission and Anticipated Discharge Date Admission Date: February 14, 2021 Subjective Assessment & Plan (1) Acute on chronic renal failure: Plan: Slight IVAN stage but this is mainly rapidly progressive CKD, now stage 4 w/ underlying 1 gm daily albuminuria at least. Creat has been going up steadily last 1 year and is most likely from his long standing Uncontrolled DM. Chemistries and volume status acceptable. Baseline urine c/w chronic inflammation such as nephropathy or GN or chronic interstitial nephritis. He has 4 g proteinuria here (previously in the 1 to 2 g daily range); -defer to primary service to titrate down opiate and gabapentin doses metabolites of which can accumulate in renal failure and cause altered mentation -daily bmp -NO need of Iv fluid today We talked about his potential need for dialysis and he is open to this if the need arises. Does not need now but very likely will need within next 1 year. -will absolutely need close renal f/u after d/c, possibly in [place]. He lives alone and does have issues with f/u and transport etc Subjective resting quietly; denies worsening sob, uncontrolled pain, n/v, poor po intake, voiding concerns Review of Systems Review of Systems: All systems reviewed & are unremarkable except as noted in Subjective Physical Exam Constitutional: well developed, + ill appearing and + frail appearing; no acute distress Eyes: EOM intact bilaterally ENMT: Ears: no external ear abnormality Nose: no external nose abnormality Mouth: + dry oral mucous membranes Neck: no nuchal rigidity Respiratory: normal respiratory effort and + cough (occasional) Auscultation: + diminished lung sounds Cardiovascular: Rate/Rhythm: regular rate and regular rhythm Extremities: + edema (Left ankle) Gastrointestinal (Abdomen): Inspection/Auscultation: normal bowel sounds Percussion/Palpation: abdomen soft; abdomen nontender Musculoskeletal: Extremities: + abnormal strength (as above w/ general appearance) Skin: no rashes, warm and dry Psychiatric: Orientation: oriented x 3 and cooperative Eye Contact: good eye contact Insight: good insight Results & Data ([facility]) Vital Signs (Past 12 Hours) Vital Signs Temp Pulse Pulse Resp BP Pulse Ox 02/20/21 10:25 36.6 C 94 H 18 146/74 H 94 02/20/21 08:28 199/97 H 02/20/21 08:07 36.8 C 96 H 18 201/93 H 95 02/20/21 08:00 86 02/20/21 04:34 36.7 C 96 H 20 164/85 H 94
--- NOTE | 2021-02-20 15:39 | Hospitalist Progress Note ---
Date of Service February 20, 2021 Assessment & Plan (1) Acute on chronic renal failure: (2) Gastroparesis: Plan: (1) Asymptomatic hypertensive urgency: (2) Nausea & vomiting: Plan: per Dr. Meier's notes: 55-year-old male with NSCC of lung stage III s/p surgery and incomplete chemo secondary to intolerance, COPD, ulcerative colitis, type I DM with complication [gastroparesis, PDN], chronic pain on narcotics, HTN, past tobacco abuse, CKD [baseline around 2.5-3], chronic anemia and seizure disorder came in 02/12 with chief complaint of abdominal pain associated with nausea and vomiting. Is being managed for the following: #. Nausea and vomiting: Secondary to worsening gastroparesis and severe esophagitis complicated by increased pain medication requirement. H/o gastroparesis,and gastric pacemaker. Also on narcotics for chronic pain. Presented with nausea, vomiting and diarrhea Per patient, he recently visited his motilitist in [facility] and his gastric pacer was tweaked. GI consulted: Increase the Reglan dose to 3 times daily. Per patient, patient is scheduled for upper scope and possible dilation in [facility] on February 22. Patient reporting nausea and vomiting under control, continue with antiemetics as needed. Continue with Reglan. Patient tolerating soft diet, will recommend soft diet upon discharge small volume frequent meals. Patient counseled that upon discharge he will need to eat more of liquid consistency diet, small volume, frequent rather than regular solid diet. --still has some nausea today Morphine and other psych meds on hold due to drowsiness mental status seems better today continue Reglan Aspiration Pneumonia Hypoxic Respiratory Failure -- off Bipap -- blood cultures negative so far sputum culture pending collection urine culture negative so far -- afebrile Remains on 2 L of oxygen via nasal cannula -- continue Cefepime + Clindamycin Day 09/09 monitor #. IVAN over Chronic kidney disease stage III: His baseline creatinine used to be 2.5-3 according to his recent labs, Creatinine trended up to 3.78 today, patient reports he has been eating and drinking good and has not been vomiting. - crea slightly improved from 4->3.9 - meds renally dosed Trial of IV LR ordered, had good urine output Nephro on board monitor closely #. Hypertensive urgency: Presented with blood pressure of 164/94 Patient reports that he has always had high blood pressure Blood pressure currently fairly under control continue with home meds Use as needed IV medications per protocol. Follow-up with PCP for reevaluation and dose adjustment as appropriate upon discharge #. Type 1 diabetes: His recent HbA1c was 7.4%. Continue his long-acting insulin sliding scale. consulted pharmacy glycemic control consult #. Non-small cell lung cancer, stage III, status post surgery, incomplete chemotherapy secondary to tolerance. Needs to follow up with PCP and oncologist. Patient aware. #. History of seizure disorder, currently on Keppra BID #. Chronic anemia: Hemoglobin seems stable. #. History of tobacco abuse. #. Chronic pain: pain meds on hold due to drowsiness see subjective part re: oxycodone #. Depression: Lexapro held due to drowsiness #. History of chronic obstructive pulmonary disease: Continue home inhalers. DVT prophylaxis: Heparin SQ Admission and Anticipated Discharge Date Admission Date: February 14, 2021 Subjective ff up for acute renal failure, etc seen resting in bed, not in distress states he still feels tired has some nausea today tolerating diet well per RN no chest pain, dyspnea, palpitations, dizziness found to have oxycodone pills in his bag and a vial of insulin under his pillow no other symptoms Review of Systems Review of Systems: all noted and negative except for above Physical Exam Physical Exam: General- oriented x 3, not in distress, speaks in sentences with no effort or accessory muscle use Eyes- anicteric Neck- no JVD Lungs- mild rales at the bases no wheezing Heart- normal rate, regular rhythm; no murmurs Abdomen- normal bowel sounds, nondistended, soft, nontender Extremities- no pretibial edema, no calf tenderness Neuro- alert, oriented x 3; no gross focal neurologic deficits Skin- warm & dry Results & Data Results & Data ([facility]) Vital Signs (Past 12 Hours) Vital Signs Temp Pulse Pulse Resp BP Pulse Ox 02/20/21 10:25 36.6 C 94 H 18 146/74 H 94 02/20/21 08:28 199/97 H 02/20/21 08:07 36.8 C 96 H 18 201/93 H 95 02/20/21 08:00 86 02/20/21 04:34 36.7 C 96 H 20 164/85 H 94 all noted and reviewed including below
[2021-02-20] MEDS: LABETALOL HCL IV 5 MG/ML 20ML IV PRN (20:11)
[2021-02-20] MEDS: INSULIN GLARGINE SOLOSTAR 100 UNITS/ML 3 ML PEN SQ SCH (20:12)
--- NOTE | 2021-02-20 22:19 | Communication Note ---
Date of Service: February 20, 2021 Overnight events 02/20/21 1017 PM Notified by RN of patient confusion, erratic behavior Patient found to have a bottle of home oxycodone IR earlier as per RN. Room search done and home OxyIR currently with security as per RN. CT head initial read no acute pathology. Encephalopathy Likely opioid abuse Continue to hold narcotics until mentation back to baseline. Consider conferring with patient's PCP about weaning patient off from narcotic rx given drug abuse. 02/21/21 1211AM Intermittent emesis episodes. Patient unable to answer questions regarding abdominal pain as per RN. AP Intermittent emesis episodes hx gastroparesis Rule out bowel obstruction LUQ Ileus/dilated bowel loops on 02/[address] abdomen pelvis Will relay to AM provider.
[2021-02-20 23:14] LABS: Basophils # (auto) 0.02 K/uL (0-0.2); Basophils % (auto) 0.3 %; Eosinophils # (auto) 0.17 K/uL (0-0.5); Eosinophils % (auto) 2.6 %; Hemoglobin 9.1 g/dL (14.0-18.0); Immature Granulocytes # (auto) 0.03 K/uL (0.00-0.02); Immature Granulocytes % (auto) 0.5 %; Lymphocytes # (auto) 0.94 K/uL (1.2-3.4); Lymphocytes % (auto) 14.2 %; Mean Corpuscular Hemoglobin 28.6 pg (25-34); Mean Corpuscular Hgb Conc 32.5 g/dL (32-36); Mean Corpuscular Volume 88.1 fL (80-100); Mean Platelet Volume 10.1 fL (7.4-10.4); Monocytes # (auto) 0.69 K/uL (0.11-0.59); Monocytes % (auto) 10.4 %; Neutrophils # (auto) 4.77 K/uL (1.4-6.5); Platelet Count 290 K/uL (130-400); RDW Standard Deviation 45.3 fL (36.4-46.3); Red Blood Count 3.18 M/uL (4.7-6.1); White Blood Count 6.62 K/uL (4.8-10.8)
[2021-02-20 23:38] LABS: Albumin Level 2.1 gm/dl (3.4-5.0); BUN Creatinine Ratio 11.1 (10-20); Calcium 9.2 mg/dl (8.5-10.1); Creatinine Clr Calc Pharmacy 21.9 ml/min; Est GFR (African American) 20.2 ml/min; Est GFR (Non-African American) 17.4 ml/min; Potassium 3.8 mmol/L (3.5-5.1)
[2021-02-20 23:41] LABS: Albumin Globulin Ratio 0.4 (0.9-2); Bilirubin,Total 0.3 mg/dl (0.2-1); Globulin 5.5 gm/dl (2.5-4.0); Total Protein 7.6 gm/dl (6.4-8.2)
[2021-02-21] MEDS: CLINDAMYCIN 900 MG in DEXTROSE 5% 50 ML IV SCH ×3 (00:04→17:33)
[2021-02-21] MEDS ORDERED: PROMETHAZINE HCL 12.5 MG in SODIUM CHLORIDE 0.9% 50 ML IV PRN (00:12)
[2021-02-21] MEDS ORDERED: METOCLOPRAMIDE HCL INJ 5 MG/ML 2 ML VIAL IV ONE (01:31)
[2021-02-21 04:10] LABS: Appearance Urine Clear (Clear); Bacteria Urine Automated Negative (Negative); Bilirubin Urine Negative (Negative); Blood Urine Trace (Negative); Color Urine Yellow; Glucose Urine UA Trace (Negative); Ketones Urine Trace (Negative); Leukocyte Esterase Urine Negative (Negative); Nitrite Urine Negative (Negative); Protein Urine 3+ (Negative); RBC Urine Automated 0-4 /hpf (0-4); Specific Gravity Urine 1.012 (1.000-1.030); Urobilinogen Urine Negative (Negative); pH Urine 5.5 (4.5-7.5)
[2021-02-21] MEDS: HEPARIN SOD 5,000 UNIT/0.5 ML VIAL SQ SCH ×3 (06:07→21:09)
[2021-02-21 07:18] LABS: BUN Creatinine Ratio 12.5 (10-20); Calcium 9.3 mg/dl (8.5-10.1); Creatinine Clr Calc Pharmacy 22.6 ml/min; Est GFR (Non-African American) 18.1 ml/min; Potassium 3.8 mmol/L (3.5-5.1)
--- NOTE | 2021-02-21 07:25 | CT Scan Report ---
CT OF THE HEAD WITHOUT CONTRAST CLINICAL HISTORY: Headache. COMPARISON STUDY: MRI of the brain January 25, 2020. Head CT February 03, 2021. CT DOSE: 729.78 mGycm TECHNIQUE: Helical axial images of the head were obtained without IV contrast. Automated exposure con trol was utilized for the study. A dose lowering technique was utilized adhering to the principles o f ALARA. FINDINGS: No acute intracranial hemorrhage, midline shift or mass effect is present. The ventricular system is unremarkable. The basal cisterns are patent. No extra-axial collections are present. There are no findings to suggest acute dural sinus thrombosis or acute territorial infarct. No significant calvarial abnormalities are present. There is mild mucosal thickening within the maxillary sinuses. T here are secretions within the left maxillary sinus. IMPRESSION: 1. No acute intracranial findings. 2. Mild maxillary sinus mucosal thickening. ACT 112: Negative or not required by law. Electronically signed by: Bryce Perez M.D. 02/21/2021 7:23 AM
[2021-02-21] MEDS ORDERED: FOSAPREPITANT DIMEGLUMINE 115 MG in 0.9 % SODIUM CHLORIDE 111.1667 ML IV PRN (08:12)
--- NOTE | 2021-02-21 08:23 | Pain Management Consultation ---
Date of Consultation February 21, 2021 Assessment & Plan (1) Chronic pain: Chronic pain type: other chronic pain Qualified Code(s): G89.29 - Other chronic pain Present on Admission?: Yes (2) Opiate dependence: Present on Admission?: Yes (3) Acute on chronic renal failure: (4) Gastroparesis: (5) Diabetes mellitus type 2, uncontrolled: Glycemic state: with hyperglycemia Qualified Code(s): E11.65 - Type 2 diabetes mellitus with hyperglycemia (6) Altered mental status: 1. Agree with holding opiates, Lexapro, gabapentin at this time. Agree with urine drug screen. Would recommend allowing morphine metabolites to clear and then assess need for restarting of opiates in the future. 2. Agree with clonidine patch to minimize withdrawal symptoms. Consider Remeron at bedtime to assist with withdrawal symptoms if patient becomes symptomatic and decision is made to not restart opiates. 3. Once the patient clears his altered mental status, recommend reassessing if there is a need for continued opiates. If so, recommend limiting the number of tablets per prescription, opiate contract, close follow-up assessment. and having Narcan rescue therapy available at home. 4. There is no role for interventional pain management in this patient at this time. He has previously exhausted all pain his management options for his chronic neuropathic pain in the past. 5. Thank you for this consultation please call if any questions, pain management will sign off History of Present Illness Attending Physician: Antonino Car MD History of Present Illness 55-year-old white male admitted on 02/12/2021 with asymptomatic hypertensive urgency who is well-known to the [facility] pain service from prior intrathecal drug administration (with subsequent removal) most recently in 2017. The patient had prior treatment with intrathecal opiate therapy for treatment of his chronic neuropathic pain complaints which was explanted due to CSF leak and infection in approximately 2017. Subsequent to that, he was working with his primary care doctor and was utilizing fentanyl 100 mcg every 48 hours in the outpatient setting up until 06/04/2020, but due to a change in his insurance coverage he was no longer able to afford fentanyl and was discontinued. Per records, he transitioned to MS Contin 60 mg every 12 hours and oxycodone 10 mg tablets which was less effective and last prescriptions noted to be in November 2020 per PDMP. No additional prescriptions were found on the PDMP since November 2020. During this hospitalization however, 36 tablets of oxycodone were retrieved from his home bag along with a vial of insulin. His last dose of morphine, oxycodone, gabapentin, Lexapro, Keppra during this hospitalization were on 02/19/2021. This morning the patient is arousable to voice, but unable to tell me anything but his name. He falls asleep intermittently during my questioning and needs re-arousal. Per nursing, urine drug screen is to be ordered this morning by the hospitalist service. Allergies Allergy/AdvReac Type Severity Reaction Status Date / Time bee venom protein (honey bee) Allergy Mild SWELLING Verified 02/12/21 01:06 AT SITE, SOB Penicillins Allergy Unknown "SINCE Verified 02/12/21 01:06 "-Amoxicillin blue dye Allergy Unknown Verified 02/12/21 01:06 cat dander Allergy Unknown Verified 02/12/21 01:06 Home Medications Medication Instructions Recorded Confirmed Type albuterol sulfate 90 mcg/actuation 2 puff INHALATION Q4H PRN 05/05/18 02/12/21 History aerosol inhaler (Ventolin HFA) epinephrine 0.3 mg/0.3 mL 0.3 mg IM Q3H PRN 05/05/18 02/12/21 History injection, auto-injector (EpiPen) insulin glargine 100 unit/mL (3 7 unit SUBCUT HS 05/05/18 02/12/21 History mL) subcutaneous pen (Basaglar KwikPen U-100 Insulin) insulin lispro 100 unit/mL 1 sliding scale dose SUBCUT UD 05/05/18 02/12/21 History subcutaneous cartridge (Humalog U-100 Insulin) multivitamin 1 tab PO QAM 05/05/18 02/12/21 History pantoprazole 40 mg tablet,delayed 40 mg PO QAM 05/05/18 02/12/21 History release (Protonix) clonidine 0.2 mg/24 hr weekly 1 patch TRANSDERMAL WK 01/23/20 02/12/21 History transdermal patch (Zewfyyfy-SOS-3) escitalopram oxalate 10 mg tablet 10 mg PO QAM 01/24/20 02/12/21 History (Lexapro) fluticasone 250 mcg-salmeterol 50 1 inh INHALATION BID 01/24/20 02/12/21 History mcg/dose blistr powdr for inhalation (Wixela Inhub) amlodipine 5 mg tablet (Norvasc) 5 mg PO QAM #30 tab 01/29/20 02/12/21 Rx levetiracetam 750 mg tablet 750 mg PO BID 30 Days #60 tab 01/29/20 02/12/21 Rx (Keppra) cyclobenzaprine 5 mg tablet 5 mg PO TID PRN 12/20/20 02/12/21 History ondansetron 8 mg disintegrating 8 mg PO Q8H PRN 12/20/20 02/12/21 History tablet morphine 30 mg tablet,extended 30 mg PO Q12H #10 tab 12/29/20 02/12/21 Rx release (MS Contin) L.acidop,casei,lactis,rham-B.lact,jose 1 cap PO BID 01/22/21 02/12/21 History 625 mg (10 billion cell) capsule (Advanced Probiotic) gabapentin 100 mg capsule 100 mg PO TID 01/22/21 02/12/21 History (Neurontin) magnesium oxide 400 mg (241.3 mg 400 mg PO BID 01/22/21 02/12/21 History magnesium) tablet (MagOx) metoclopramide HCl 10 mg tablet 10 mg PO ACHS 01/22/21 02/12/21 History (Reglan) oxycodone 5 mg tablet (Roxicodone) 5 mg PO Q4H PRN 01/22/21 02/12/21 History sucralfate 1 gram tablet (Carafate) 1 g PO QID 01/22/21 02/12/21 History Patient History Medical History (Updated 02/21/21 @ 08:35 by Idalia Hernandez DO) Acute dyspnea Anemia Chest pain No current chest pain...related to reflux per patient Chronic pain CKD (chronic kidney disease) stage 4, GFR 15-29 ml/min baseline creatinine 3 in fall 2020 w/ 1 gm proteinuria COPD (chronic obstructive pulmonary disease) Diabetes mellitus type 2, uncontrolled Diabetic autonomic neuropathy Diabetic peripheral neuropathy Discharge planning issues DVT prophylaxis Elevated d-dimer Gastroparesis "s/p gastric stimulator" Hypertension Hypomagnesemia Intractable nausea and vomiting 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 One 1 mm polyp in the ascending colon resected. One benign appearing 1 mm polyp in the rectum resected. Internal hemorrhoids; Dr. Demarco" H/O esophagogastroduodenoscopy "01/26/2015- LA Grade B reflux esophagitis, gastritis; Dr. Major" History of cholecystectomy History of tonsillectomy and adenoidectomy Hx of total knee arthroplasty S/P lobectomy of lung "left upper lobectomy for adenoCa" On 08/05/16 16:30 Edie Mcfarland wrote "L side @ [facility] 05/25/16" Status post insertion of intrathecal pump explanted Family History Other Family history non-contributory Social History Smoking Status: Former smoker Tobacco Type: Cigarettes Second Hand Exposure: No; Hx Alcohol Use: No Hx Substance Use: Yes Last Used Substance: Just Prior to Arrival Last Used Substance Other:: Four hours ago Substance Use Type Other:: Wes denies Preferred Language: Malay Communication Ability: Effective Scientific Recruiter Required: No Beliefs That Will Affect Care: Faith Faith Beliefs: YAZIDI marital status: Single Current Living Situation: Alone How many Children do You have: 5 Other Information That Helps Us Care for You: No Feels Safe at Home: Yes Safety Concerns: Feels Safe At This Time Assistive Devices: BiPap, Oxygen - Continuous and Walker Assistive Devices Comment: WALKER` Physical Exam Constitutional: WD/WN, vitals as above average body habitus; no acute di stress Eyes: PERRL, conjunctivae normal, anicteric sclerae ENMT: external ear and nose normal, oropharynx normal Neck: normal visual inspection and trachea midline Respiratory: normal respiratory effort; no respiratory distress, no retractions and does not use accessory muscles Cardiovascular: Rate/Rhythm: regular rate and regular rhythm Musculoskeletal: Head/Neck/Chest: normocephalic and head atraumatic Extremities: no cyanosis and no petechiae Skin: no rashes, warm and dry Psychiatric: Orientation: oriented to person; + not oriented to place and + not oriented to time Eye Contact: + poor eye contact Unable to tell me the day of the week or the vice president education Results (Pain [facility]) Laboratory Review Laboratory results: personally reviewed by me and pertinent findings noted below Additional Comments: [id number] Creat 3.57 HgbA1C 11.[address]: non enhanced and reports reviewed CT Findings: 02/20/21 CT OF THE HEAD WITHOUT CONTRAST CLINICAL HISTORY: Headache. COMPARISON STUDY: MRI of the brain January 25, 2020. Head CT February 03, 2021. CT DOSE: 729.78 mGycm TECHNIQUE: Helical axial images of the head were obtained without IV contrast. Automated exposure control was utilized for the study. A dose lowering technique was utilized adhering to the principles of ALARA. FINDINGS: No acute intracranial hemorrhage, midline shift or mass effect is present. The ventricular system is unremarkable. The basal cisterns are patent. No extra-axial collections are present. There are no findings to suggest acute dural sinus thrombosis or acute territorial infarct. No significant calvarial abnormalities are present. There is mild mucosal thickening within the maxillary sinuses. There are secretions within the left maxillary sinus. IMPRESSION: 1. No acute intracranial findings. 2. Mild maxillary sinus mucosal thickening. Opioid Risk Assessment Opioid Risk Assessment: risk assessment performed and high risk identified Drug Testing Testing Type: Urine (To be ordered this morning per hospitalist)
[2021-02-21] MEDS: INSULIN ASPART 100 UNITS/ML 3 ML PEN SC SCH ×4 (08:37→21:09)
[2021-02-21] MEDS: CEFEPIME 2,000 MG in SYRINGE 0 ML IV SCH (08:39)
[2021-02-21] MEDS: CHECK CLONIDINE PATCH PLACEMENT SCH ×2 (08:39→17:22)
[2021-02-21] MEDS: hydrALAZINE HCL 20 MG/ML VIAL IV PRN ×2 (08:41→18:29)
--- NOTE | 2021-02-21 08:41 | XRay Report ---
KUB CLINICAL HISTORY: vomiting, r/o obstruction, ileus COMPARISON STUDY: CT of the abdomen and pelvis February 03, 2021. FINDINGS: Stimulator leads are noted. Single loop of mildly dilated small bowel within the right uppe r quadrant measuring 4.5 cm in caliber is noted. Mild to moderate amount stool within the colon is pr esent. Patient is rotated. Although sensitivity is diminished on this supine exam, there is no eviden ce for free air. IMPRESSION: Single dilated small bowel loop within the right upper quadrant. Although not highly sugg estive, a partial small bowel obstruction cannot be excluded. ACT 112: Negative or not required by law. Electronically signed by: Bryce Perez M.D. 02/21/2021 8:40 AM
--- NOTE | 2021-02-21 09:05 | XRay Report ---
XR chest 1V portable HISTORY: Pneumonia. Follow-up. COMPARISON: Chest 02/16/2021. FINDINGS: The heart is normal in size. There are low lung volumes. Trace bilateral pleural effusions and bibasilar airspace opacities have significantly improved in the interval. No pneumothorax. IMPRESSION: Near complete resolution of the trace bilateral pleural effusions and bilateral airspace opacities co mpared to the prior study. ACT 112: Negative or not required by law. Electronically signed by: Danilo Langley M.D. 02/21/2021 9:03 AM
[2021-02-21 09:14] LABS: Base Excess ABG -6.9 mEq/L (-9-1.8); HCO3 ABG 18 mmol/L (19-24); Oxygen Saturation ABG 96.3 % (90-95); PCO2 ABG 34 mmHg (35-46); PO2 ABG 86 mmHg (80-95); pH ABG 7.34 (7.35-7.45)
[2021-02-21 09:18] LABS: Allen Test Pos (Pos)
--- NOTE | 2021-02-21 09:38 | Nephrology Progress Note ---
Date of Service February 21, 2021 Assessment & Plan Admission and Anticipated Discharge Date Admission Date: February 14, 2021 Subjective Subjective Assessment & Plan (1) Acute on chronic renal failure: Plan: Slight IVAN stage but this is mainly rapidly progressive CKD, now stage 4 w/ underlying 1 gm daily albuminuria at least. Creat has been going up steadily last 1 year and is most likely from his long standing Uncontrolled DM. Chemistries and volume status acceptable. Baseline urine c/w chronic inflammation such as nephropathy or GN or chronic interstitial nephritis. He has 4 g proteinuria here (previously in the 1 to 2 g daily range); -defer to primary service to titrate down opiate and gabapentin doses metabolites of which can accumulate in renal failure and cause altered mentation -daily bmp -NO need of Iv fluid today We talked about his potential need for dialysis and he is open to this if the need arises. Does not need now but very likely will need within next 6 month to 1 year. -will absolutely need close renal f/u after d/c, possibly in [place]. He lives alone and does have issues with f/u and transport etc --creat seems to be stable in the mid to high 3's--new baseline for him 2 HTN--_first need to check Standing BP before adjusting BP meds. High likelihood of Orthostatic Hypotension from Diabetic neuropathy. if high will go up on Amlo and raise BB. Subjective resting quietly; denies worsening sob, uncontrolled pain, n/v, poor po intake, voiding concerns Review of Systems Review of Systems: All systems reviewed & are unremarkable except as noted in Subjective Physical Exam Constitutional: well developed, + ill appearing and + frail appearing; no acute distress Eyes: EOM intact bilaterally ENMT: Ears: no external ear abnormality Nose: no external nose abnormality Mouth: + dry oral mucous membranes Neck: no nuchal rigidity Respiratory: normal respiratory effort and + cough (occasional) Auscultation: + diminished lung sounds Cardiovascular: Rate/Rhythm: regular rate and regular rhythm Extremities: + edema (Left ankle) Gastrointestinal (Abdomen): Inspection/Auscultation: normal bowel sounds Percussion/Palpation: abdomen soft; abdomen nontender Musculoskeletal: Extremities: + abnormal strength (as above w/ general appearance) Skin: no rashes, warm and dry Psychiatric: Orientation: oriented x 3 and cooperative Eye Contact: good eye contact Insight: good insight Results & Data ([facility]) Vital Signs (Past 12 Hours) Vital Signs Temp Pulse Pulse Resp BP Pulse Ox 02/21/21 07:53 36.7 C 100 H 14 189/97 H 99 02/21/21 04:00 36.3 C L 96 H 18 162/89 H 97 02/20/21 23:57 36.5 C 69 18 125/74 95 02/20/21 23:19 90
[2021-02-21] MEDS: METOCLOPRAMIDE HCL 5 MG TABLET PO SCH ×2 (10:24→14:16)
[2021-02-21] MEDS: SUCRALFATE 1 GM TAB PO SCH ×4 (10:24→20:40)
[2021-02-21] MEDS: FLUTICASONE/VILANTEROL 200/25MCG 14 PUFFS/INHALER INH SCH (10:24)
[2021-02-21] MEDS: amLODIPine BESYLATE 5 MG TAB PO SCH (10:24)
[2021-02-21] MEDS: ADVANCED PROBIOTIC 1250 MG CAPSULE PO SCH ×2 (10:24→20:39)
[2021-02-21] MEDS: PANTOprazole 40 MG TAB PO SCH (10:25)
[2021-02-21] MEDS: MULTIVITAMIN TAB PO SCH (10:25)
--- NOTE | 2021-02-21 11:54 | Neurology Consultation ---
Date of Consultation February 21, 2021 Assessment & Plan (1) Seizure disorder: 1. continue Keppra 500 mg q12 hours - renal dosing 2. keppra level 12/24 40.6- repeat pending 3. no driving for 6 months from last seizure date, no heights, no bathing or swimming alone 4. antibiotics can decrease seizure threshold 5. obtain MRI brain r/o stroke or other malforations lesion 6. EEG- r/o seizure focus further recommendation once tests are completed. (2) Acute on chronic renal failure: 1. needs DM control to avoid further renal failure which he has not had in the past (3) Opiate dependence: 1. pain mtg recommending decrease in dosing of narcotics 2. gabapentin -renal dosing 400 mg to 1400 mg daily twice daily 3. needs alternative to opiates however has been long time narcotic use Supervising Physician Co-Signing Physician Notes Patient was seen and examined. Patient sleeping in bed on his left side. Did not want to participate in formal examine. Suspect possible volitional component Vs medication induced. Will arrange routine EEG as well as MRI brain. Would avoid narcotics and sedatives. History of Present Illness Reason for Consultation: Altered mental status, hx of seizure Requesting Physician: Antonino Car MD Attending Physician: Antonino Car MD History of Present Illness Jeff is a 55 year old male with a PMH-COPD, metastatic NSCLC status post surgery, incomplete chemotherapy secondary to intolerance, IBD, gastroparesis status post gastric pacemaker, chronic pain on narcotics, HTN, DM1, DM neuropathy, past tobacco abuse, CRI (baseline creatinine 2), chronic anemia (baseline hemoglobin 9), seizure disorder. neurogenic bladder. He was admitted to [facility] 02/12/2021 for abdominal discomfort. He has had multiple admissions since December 2020 for abdominal pain, nausea vomiting attributed to gastroparesis. was also admitted on 02/04-02/06/2021 and advised to follow-up with [place] surgeon for gastric pacer check. He was last seen in our office 11/18/2020 and at that time he was on Keppra 750 mg q 12 hours and last reported seizure possibly November 2019. he is not cooperating with exam and is minimally responding verbally. according to nursing report this is a sudden change starting today Allergies Allergy/AdvReac Type Severity Reaction Status Date / Time bee venom protein (honey bee) Allergy Mild SWELLING Verified 02/12/21 01:06 AT SITE, SOB Penicillins Allergy Unknown "SINCE Verified 02/12/21 01:06 "-Amoxicillin blue dye Allergy Unknown Verified 02/12/21 01:06 cat dander Allergy Unknown Verified 02/12/21 01:06 Home Medications Medication Instructions Recorded Confirmed Type albuterol sulfate 90 mcg/actuation 2 puff INHALATION Q4H PRN 05/05/18 02/12/21 History aerosol inhaler (Ventolin HFA) epinephrine 0.3 mg/0.3 mL 0.3 mg IM Q3H PRN 05/05/18 02/12/21 History injection, auto-injector (EpiPen) insulin glargine 100 unit/mL (3 7 unit SUBCUT HS 05/05/18 02/12/21 History mL) subcutaneous pen (Basaglar KwikPen U-100 Insulin) insulin lispro 100 unit/mL 1 sliding scale dose SUBCUT UD 05/05/18 02/12/21 History subcutaneous cartridge (Humalog U-100 Insulin) multivitamin 1 tab PO QAM 05/05/18 02/12/21 History pantoprazole 40 mg tablet,delayed 40 mg PO QAM 05/05/18 02/12/21 History release (Protonix) clonidine 0.2 mg/24 hr weekly 1 patch TRANSDERMAL WK 01/23/20 02/12/21 History transdermal patch (Frbdboqi-CAK-1) escitalopram oxalate 10 mg tablet 10 mg PO QAM 01/24/20 02/12/21 History (Lexapro) fluticasone 250 mcg-salmeterol 50 1 inh INHALATION BID 01/24/20 02/12/21 History mcg/dose blistr powdr for inhalation (Wixela Inhub) amlodipine 5 mg tablet (Norvasc) 5 mg PO QAM #30 tab 01/29/20 02/12/21 Rx levetiracetam 750 mg tablet 750 mg PO BID 30 Days #60 tab 01/29/20 02/12/21 Rx (Keppra) cyclobenzaprine 5 mg tablet 5 mg PO TID PRN 12/20/20 02/12/21 History ondansetron 8 mg disintegrating 8 mg PO Q8H PRN 12/20/20 02/12/21 History tablet morphine 30 mg tablet,extended 30 mg PO Q12H #10 tab 12/29/20 02/12/21 Rx release (MS Contin) L.acidop,casei,lactis,rham-B.lact,jose 1 cap PO BID 01/22/21 02/12/21 History 625 mg (10 billion cell) capsule (Advanced Probiotic) gabapentin 100 mg capsule 100 mg PO TID 01/22/21 02/12/21 History (Neurontin) magnesium oxide 400 mg (241.3 mg 400 mg PO BID 01/22/21 02/12/21 History magnesium) tablet (MagOx) metoclopramide HCl 10 mg tablet 10 mg PO ACHS 01/22/21 02/12/21 History (Reglan) oxycodone 5 mg tablet (Roxicodone) 5 mg PO Q4H PRN 01/22/21 02/12/21 History sucralfate 1 gram tablet (Carafate) 1 g PO QID 01/22/21 02/12/21 History Patient History Medical History (Updated 02/21/21 @ 15:21 by Anuradha Tran MD) Acute dyspnea Anemia Chest pain No current chest pain...related to reflux per patient Chronic pain CKD (chronic kidney disease) stage 4, GFR 15-29 ml/min baseline creatinine 3 in fall 2020 w/ 1 gm proteinuria COPD (chronic obstructive pulmonary disease) Diabetes mellitus type 2, uncontrolled Diabetic autonomic neuropathy Diabetic peripheral neuropathy Discharge planning issues DVT prophylaxis Elevated d-dimer Gastroparesis "s/p gastric stimulator" Hypertension Hypomagnesemia Intractable nausea and vomiting 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 One 1 mm polyp in the ascending colon resected. One benign appearing 1 mm polyp in the rectum resected. Internal hemorrhoids; Dr. Demarco" H/O esophagogastroduodenoscopy "01/26/2015- [place] Grade B reflux esophagitis, gastritis; Dr. Major" History of cholecystectomy History of tonsillectomy and adenoidectomy Hx of total knee arthroplasty S/P lobectomy of lung "left upper lobectomy for adenoCa" On 08/05/16 16:30 Edie Mcfarland wrote "L side @ [facility] [place] Yell 05/25/16" Status post insertion of intrathecal pump explanted Family History Other Family history non-contributory Social History Smoking Status: Former smoker Tobacco Type: Cigarettes Second Hand Exposure: No; Hx Alcohol Use: No Hx Substance Use: Yes Last Used Substance: Just Prior to Arrival Last Used Substance Other:: Four hours ago Substance Use Type Other:: Currenlty denies Preferred Language: Japanese Communication Ability: Effective Spanish Speaking Babysitter Required: No Beliefs That Will Affect Care: Confucianist Confucianist Beliefs: ORIENTAL ORTHODOX marital status: Single Current Living Situation: Alone How many Children do You have: 5 Other Information That Helps Us Care for You: No Feels Safe at Home: Yes Safety Concerns: Feels Safe At This Time Assistive Devices: None Assistive Devices Comment: LIN Review of Systems Review of Systems: Unobtainable due to cognitive status Physical Exam Physical Exam: Physical Exam: Constitutional: appearance ill appearing Ears, Nose, Mouth and Throat: mucous membranes moist, no injection and skin normal, eyes normal Cardiovascular: normal S-1 and S-2 and regular rate and rhythm Respiratory: course breath sounds Musculoskeletal: no peripheral edema thenar atrophy in bilateral hands Skin: no stigmata of neurocutaneous disease noted and normal and intact Eyes: extraocular muscles intact (EOMI) NEUROLOGIC EXAMINATION: Mental status: Alert and minimally interactive Oriented to person Speech minimal verbal responses Cranial Nerves face appear symmetric Reflexes: Deep tendon reflexes were decreased bilaterally Coordination: unable to test Gait/Stance: Posture lying in bed able to reposition himself with out difficulty Strength: does not cooperate for evaluation Results & Data ([facility]) Vital Signs (Past 12 Hours) Vital Signs Temp Pulse Pulse Resp BP Pulse Ox 02/21/21 11:43 36.4 C L 99 H 16 166/73 H 99 02/21/21 09:35 99 H 02/21/21 07:53 36.7 C 100 H 14 189/97 H 99 02/21/21 04:00 36.3 C L 96 H 18 162/89 H 97 02/20/21 23:57 36.5 C 69 18 125/74 95 Laboratory Results Abnormal lab results 02/20/21 02/20/21 02/20/21 Range/Units 16:48 20:02 22:26 RBC (4.7-6.1) M/uL Hgb (14.0-18.0) g/dL Hct (42-52) % Lymph # (Auto) (1.2-3.4) K/uL [place] # (Auto) (0.11-0.59) K/uL Immature Gran # (Auto) (0.00-0.02) K/uL ABG pH (7.35-7.45) ABG pCO2 (35-46) mmHg ABG HCO3 (19-24) mmol/L ABG O2 Saturation (90-95) % Chloride (98-107) mmol/L Carbon Dioxide (21-32) mmol/L Anion Gap (3-11) BUN (7-18) mg/dl Creatinine (0.6-1.4) mg/dl Glucose (70-99) mg/dl POC Glucose 145 H 108 H 135 H (70-99) mg/dl AST (15-37) U/L Alkaline Phosphatase (45-117) U/L Albumin (3.4-5.0) gm/dl Globulin (2.5-4.0) gm/dl Albumin/Globulin Ratio (0.9-2) Urine Protein (Negative) Urine Glucose (UA) (Negative) Urine Ketones (Negative) Urine Blood (Negative) U Epithel Cells (Auto) (0-5) /lpf 02/20/21 02/20/21 02/21/21 Range/Units 22:55 22:55 03:26 RBC 3.18 L (4.7-6.1) M/uL Hgb 9.1 L (14.0-18.0) g/dL Hct 28.0 L (42-52) % Lymph # (Auto) 0.94 L (1.2-3.4) K/uL [place] # (Auto) 0.69 H (0.11-0.59) K/uL Immature Gran # (Auto) 0.03 H (0.00-0.02) K/uL ABG pH (7.35-7.45) ABG pCO2 (35-46) mmHg ABG HCO3 (19-24) mmol/L ABG O2 Saturation (90-95) % Chloride 112 H (98-107) mmol/L Carbon Dioxide 20 L (21-32) mmol/L Anion Gap (3-11) BUN 41 H (7-18) mg/dl Creatinine 3.69 H (0.6-1.4) mg/dl Glucose 130 H (70-99) mg/dl POC Glucose (70-99) mg/dl AST 10 L (15-37) U/L Alkaline Phosphatase 124 H (45-117) U/L Albumin 2.1 L (3.4-5.0) gm/dl Globulin 5.5 H (2.5-4.0) gm/dl Albumin/Globulin Ratio 0.4 L (0.9-2) Urine Protein 3+ H (Negative) Urine Glucose (UA) Trace H (Negative) Urine Ketones Trace H (Negative) Urine Blood Trace H (Negative) U Epithel Cells (Auto) 5-10 H (0-5) /lpf 02/21/21 02/21/21 02/21/21 Range/Units 06:29 07:51 08:44 RBC (4.7-6.1) M/uL Hgb (14.0-18.0) g/dL Hct (42-52) % Lymph # (Auto) (1.2-3.4) K/uL [place] # (Auto) (0.11-0.59) K/uL Immature Gran # (Auto) (0.00-0.02) K/uL ABG pH 7.34 L (7.35-7.45) ABG pCO2 34 L (35-46) mmHg ABG HCO3 18 L (19-24) mmol/L ABG O2 Saturation 96.3 H (90-95) % Chloride 110 H (98-107) mmol/L Carbon Dioxide 17 L (21-32) mmol/L Anion Gap 14.0 H (3-11) BUN 45 H (7-18) mg/dl Creatinine 3.57 H (0.6-1.4) mg/dl Glucose 222 H (70-99) mg/dl POC Glucose 217 H (70-99) mg/dl AST (15-37) U/L Alkaline Phosphatase (45-117) U/L Albumin (3.4-5.0) gm/dl Globulin (2.5-4.0) gm/dl Albumin/Globulin Ratio (0.9-2) Urine Protein (Negative) Urine Glucose (UA) (Negative) Urine Ketones (Negative) Urine Blood (Negative) U Epithel Cells (Auto) (0-5) /lpf 02/21/21 Range/Units 11:39 RBC (4.7-6.1) M/uL Hgb (14.0-18.0) g/dL Hct (42-52) % Lymph # (Auto) (1.2-3.4) K/uL [place] # (Auto) (0.11-0.59) K/uL Immature Gran # (Auto) (0.00-0.02) K/uL ABG pH (7.35-7.45) ABG pCO2 (35-46) mmHg ABG HCO3 (19-24) mmol/L ABG O2 Saturation (90-95) % Chloride (98-107) mmol/L Carbon Dioxide (21-32) mmol/L Anion Gap (3-11) BUN (7-18) mg/dl Creatinine (0.6-1.4) mg/dl Glucose (70-99) mg/dl POC Glucose 264 H (70-99) mg/dl AST (15-37) U/L Alkaline Phosphatase (45-117) U/L Albumin (3.4-5.0) gm/dl Globulin (2.5-4.0) gm/dl Albumin/Globulin Ratio (0.9-2) Urine Protein (Negative) Urine Glucose (UA) (Negative) Urine Ketones (Negative) Urine Blood (Negative) U Epithel Cells (Auto) (0-5) /lpf Diagnostic Findings CT head- No acute intracranial findings. Mild maxillary sinus mucosal thickening. KUB-possible small bowel obstruction CXR near complete resolution of the trace bilateral pleural effusions and bilate ral airspace opacities compared to the prior study.
--- NOTE | 2021-02-21 13:03 | Psychiatric Consultation ---
Date of Consultation February 21, 2021 Impression / Recommendations Impression Given patient's somnolence unable to assess for current symptoms of depression. Such degree of somnolence would not be expected for low dose lexapro and gabapentin even in someone with reduced renal function. Agree with UDS to rule out additional substances causing AMS or opioids. Suboxone can often be helpful as a longer term treatment should somnolence be due to overuse of opioids for chronic pain. In terms of psychiatric medications in the setting of renal failure, lexapro does not require dose adjustments except for severe renal failure in which case it should be held. Agree with holding during current somnolence. Would except withdrawal SSRI side effects since he had multiple days of 5mg before discontinuation. Gabapentin, if used for anxiety, requires renal adjustments and based on his calculated Cr clearance should not exceed 700mg/day. (1) Somnolence: -Agree with holding lexapro and gabapentin until somnolence resolves -Agree with UDS -Once somnolence improves would restart lexapro 5 mg if patient finds helpful for anxiety or depression. Could consider sertraline 50mg qd, which doesn't require renal adjustments, though clinically it can worsen GI symptoms initially. -Once somnolence improves could restart gabapentin, if being used for anxiety, and if so renal adjustment for his current Cr level would be no more than 700 mg given as a once daily dose. Psych History Identifying Data 55 yo man with extensive medical history admitted medically for abdominal pain with chronic gastroparesis and IVAN. Psychiatry was consulted by Dr. Car for recommendations regarding psychiatric medication for depression given renal failure and recent change in mental status with increased somnolence. Chief Complaint "nice to meet you". History of Present Illness Jeff was sleeping on two occasions when the psych liason and then both us tried to meet with him. He was able to be awoken enough that he responded me with introductions but then kept falling back asleep within a few seconds. Reportedly he had also slept through his phone ringing. Due to this we were unable to gather any history from him. Based on chart review and discussion with his nurse and providers he has a history of significant pain as well as multiple significant medical conditions including renal failure, gastroparesis, T1DM, HTN, hx seizure and depression. He came to the hospital on lexapro 10mg and gabapentin 100mg TID. lexapro was then reduced to 5mg qd on 02/17. Over the last day or so he's become increasingly somnolent and experienced muscle twitching at times reportedly. Past Psychiatric History Previous Psych History: unable to assess, hx depression diagnosis, opioid use for pain Allergies Allergy/AdvReac Type Severity Reaction Status Date / Time bee venom protein (honey bee) Allergy Mild SWELLING Verified 02/12/21 01:06 AT SITE, SOB Penicillins Allergy Unknown "SINCE Verified 02/12/21 01:06 "-Amoxicillin blue dye Allergy Unknown Verified 02/12/21 01:06 cat dander Allergy Unknown Verified 02/12/21 01:06 Home Medications Medication Instructions Recorded Confirmed Type albuterol sulfate 90 mcg/actuation 2 puff INHALATION Q4H PRN 05/05/18 02/12/21 History aerosol inhaler (Ventolin HFA) epinephrine 0.3 mg/0.3 mL 0.3 mg IM Q3H PRN 05/05/18 02/12/21 History injection, auto-injector (EpiPen) insulin glargine 100 unit/mL (3 7 unit SUBCUT HS 05/05/18 02/12/21 History mL) subcutaneous pen (Basaglar KwikPen U-100 Insulin) insulin lispro 100 unit/mL 1 sliding scale dose SUBCUT UD 05/05/18 02/12/21 H istory subcutaneous cartridge (Humalog U-100 Insulin) multivitamin 1 tab PO QAM 05/05/18 02/12/21 History pantoprazole 40 mg tablet,delayed 40 mg PO QAM 05/05/18 02/12/21 History release (Protonix) clonidine 0.2 mg/24 hr weekly 1 patch TRANSDERMAL WK 01/23/20 02/12/21 History transdermal patch (Tnfyfudb-WOX-6) escitalopram oxalate 10 mg tablet 10 mg PO QAM 01/24/20 02/12/21 History (Lexapro) fluticasone 250 mcg-salmeterol 50 1 inh INHALATION BID 01/24/20 02/12/21 History mcg/dose blistr powdr for inhalation (Wixela Inhub) amlodipine 5 mg tablet (Norvasc) 5 mg PO QAM #30 tab 01/29/20 02/12/21 Rx levetiracetam 750 mg tablet 750 mg PO BID 30 Days #60 tab 01/29/20 02/12/21 Rx (Keppra) cyclobenzaprine 5 mg tablet 5 mg PO TID PRN 12/20/20 02/12/21 History ondansetron 8 mg disintegrating 8 mg PO Q8H PRN 12/20/20 02/12/21 History tablet morphine 30 mg tablet,extended 30 mg PO Q12H #10 tab 12/29/20 02/12/21 Rx release (MS Contin) L.acidop,casei,lactis,rham-B.lact,jose 1 cap PO BID 01/22/21 02/12/21 History 625 mg (10 billion cell) capsule (Advanced Probiotic) gabapentin 100 mg capsule 100 mg PO TID 01/22/21 02/12/21 History (Neurontin) magnesium oxide 400 mg (241.3 mg 400 mg PO BID 01/22/21 02/12/21 History magnesium) tablet (MagOx) metoclopramide HCl 10 mg tablet 10 mg PO ACHS 01/22/21 02/12/21 History (Reglan) oxycodone 5 mg tablet (Roxicodone) 5 mg PO Q4H PRN 01/22/21 02/12/21 History sucralfate 1 gram tablet (Carafate) 1 g PO QID 01/22/21 02/12/21 History Family History unable to assess Substance Abuse History chronic opioid use for pain, unclear if he's ever been on suboxone for chronic pain Personal History Beliefs That Will Affect Care: Amish Patient History Medical History (Updated 02/21/21 @ 15:21 by Anuradha Tran MD) Acute dyspnea Anemia Chest pain No current chest pain...related to reflux per patient Chronic pain CKD (chronic kidney disease) stage 4, GFR 15-29 ml/min baseline creatinine 3 in fall 2020 w/ 1 gm proteinuria COPD (chronic obstructive pulmonary disease) Diabetes mellitus type 2, uncontrolled Diabetic autonomic neuropathy Diabetic peripheral neuropathy Discharge planning issues DVT prophylaxis Elevated d-dimer Gastroparesis "s/p gastric stimulator" Hypertension Hypomagnesemia Intractable nausea and vomiting 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 One 1 mm polyp in the ascending colon resected. One benign appearing 1 mm polyp in the rectum resected. Internal hemorrhoids; Dr. Demarco" H/O esophagogastroduodenoscopy "01/26/2015- [place] Grade B reflux esophagitis, gastritis; Dr. Major" History of cholecystectomy History of tonsillectomy and adenoidectomy Hx of total knee arthroplasty S/P lobectomy of lung "left upper lobectomy for adenoCa" On 08/05/16 16:30 Edie Mcfarland wrote "L side @ [facility] 05/25/16" Status post insertion of intrathecal pump explanted Family History Other Family history non-contributory Social History Smoking Status: Former smoker Tobacco Type: Cigarettes Second Hand Exposure: No; Hx Alcohol Use: No Hx Substance Use: Yes Last Used Substance: Just Prior to Arrival Last Used Substance Other:: Four hours ago Substance Use Type Other:: Currenlty denies Preferred Language: Georgian Communication Ability: Effective Corn Sheller Required: No Beliefs That Will Affect Care: Amish Amish Beliefs: DENOMINATIONAL marital status: Single Current Living Situation: Alone How many Children do You have: 5 Other Information That Helps Us Care for You: No Feels Safe at Home: Yes Safety Concerns: Feels Safe At This Time Assistive Devices: None Assistive Devices Comment: WALKER` Physical Exam Psychiatric: Orientation: oriented to person; + not alert Apperance: appropriately dressed Eye Contact: + poor eye contact Motor Behavior: no abnormal motor movements Speech: normal rate/rhythm/volume of speech (but brief) Affect: + flat affect Thought Process: goal directed thought process Thought Content: reality based without delusions Vital Signs (Past 24 Hours): Last Vital Signs Temp 36.4 C L 02/21/21 11:43 Pulse 99 H 02/21/21 11:43 Resp 16 02/21/21 11:43 BP 166/73 H 02/21/21 11:43 Pulse Ox 99 02/21/21 11:43 Review of Systems Unobtainable due to reduced consciousness Results & Data (PSY) Laboratory Results Cr 3.57, calculated Cr clearance of 23 ml/min Medications Administered Amlodipine Besylate (A[facility]odipine Besylate 5 Mg Tab) [facility] [place] Stop: 03/14/21 08:59 Last Admin: 02/21/21 10:24 Dose: Not Given Documented by: [id number] Admin: 02/20/21 09:26 Dose: 5 mg Documented by: [id number] Cosigned by: [id number] Admin: 02/19/21 08:28 Dose: 5 mg Documented by: [id number] Admin: 02/18/21 09:27 Dose: 5 mg Documented by: [id number] Admin: 02/17/21 08:32 Dose: 5 mg Documented by: [id number] Admin: 02/16/21 11:56 Dose: 5 mg Documented by: [id number] Admin: 02/15/21 12:59 Dose: 5 mg Documented by: [id number] Admin: 02/14/21 08:49 Dose: 5 mg Documented by: [id number] Admin: 02/13/21 08:14 Dose: 5 mg Documented by: [id number] Admin: 02/12/21 08:15 Dose: 5 mg Documented by: [id number] Clonidine HCl (Clonidine Hcl 0.2 Mg/24 Hr Transderm Sys) 1 patch TD Q7D@2100 [facility] Stop: 03/22/21 22:44 Last Admin: 02/21/21 00:04 Dose: 1 patch Documented by: [id number] Escitalopram Oxalate (Escitalopram Oxalate 10 Mg Tab) [facility] [place] Stop: 03/18/21 08:59 Last Admin: 02/19/21 08:23 Dose: 5 mg Documented by: [id number] Admin: 02/18/21 08:26 Dose: 5 mg Documented by: [id number] Admin: 02/17/21 08:31 Dose: 5 mg Documented by: [id number] Admin: 02/16/21 10:18 Dose: Not Given Documented by: [id number] Fluticasone/Vilanterol (Fluticasone/Vilanterol 200/25mcg 14 Puffs/Inhaler) 1 puffs INH DAILY [facility] Stop: 03/14/21 08:59 Last Admin: 02/21/21 10:24 Dose: Not Given Documented by: [id number] Admin: 02/20/21 09:27 Dose: 1 puffs Documented by: [id number] Cosigned by: [id number] Admin: 02/19/21 10:06 Dose: 1 puffs Documented by: [id number] Admin: 02/18/21 08:28 Dose: 1 puffs Documented by: [id number] Admin: 02/17/21 08:32 Dose: 1 puffs Documented by: [id number] Admin: 02/16/21 09:51 Dose: 1 puffs Documented by: [id number] Admin: 02/15/21 12:59 Dose: 1 puffs Documented by: [id number] Admin: 02/14/21 08:50 Dose: 1 puffs Documented by: [id number] Admin: 02/13/21 08:15 Dose: 1 puffs Documented by: [id number] Admin: 02/12/21 08:15 Dose: 1 puffs Documented by: [id number] Gabapentin (Gabapentin 100 Mg Cap) 100 mg PO BID [facility] Stop: 03/18/21 20:59 Last Admin: 02/19/21 08:24 Dose: 100 mg Documented by: [id number] Admin: 02/18/21 20:29 Dose: 100 mg Documented by: [id number] Admin: 02/18/21 08:26 Dose: 100 mg Documented by: [id number] Admin: 02/17/21 21:42 Dose: 100 mg Documented by: [id number] Admin: 02/17/21 08:33 Dose: 100 mg Documented by: [id number] Admin: 02/16/21 20:52 Dose: 100 mg Documented by: [id number] Heparin Sodium (Porcine) (Heparin Sod 5,000 Unit/0.5 Ml Vial) 5,000 units SQ Q8 [facility] Stop: 03/14/21 05:59 Last Admin: 02/21/21 06:07 Dose: Not Given Documented by: [id number] Admin: 02/20/21 20:21 Dose: 5,000 units Documented by: [id number] Admin: 02/20/21 15:21 Dose: 5,000 units Documented by: [id number] Admin: 02/20/21 05:55 Dose: 5,000 units Documented by: [id number] Admin: 02/19/21 21:54 Dose: 5,000 units Documented by: [id number] Admin: 02/19/21 15:31 Dose: 5,000 units Documented by: [id number] Admin: 02/19/21 05:28 Dose: 5,000 units Documented by: [id number] Admin: 02/18/21 20:35 Dose: 5,000 units Documented by: [id number] Admin: 02/18/21 13:20 Dose: 5,000 units Documented by: [id number] Admin: 02/18/21 05:18 Dose: 5,000 units Documented by: [id number] Admin: 02/17/21 21:42 Dose: 5,000 units Documented by: [id number] Admin: 02/17/21 13:32 Dose: 5,000 units Documented by: [id number] Admin: 02/17/21 05:42 Dose: 5,000 units Documented by: [id number] Admin: 02/16/21 20:55 Dose: 5,000 units Documented by: [id number] Admin: 02/16/21 13:33 Dose: 5,000 units Documented by: [id number] Admin: 02/16/21 06:11 Dose: 5,000 units Documented by: [id number] Admin: 02/15/21 20:46 Dose: 5,000 units Documented by: [id number] Admin: 02/15/21 17:02 Dose: 5,000 units Documented by: [id number] Admin: 02/15/21 05:41 Dose: 5,000 units Documented by: [id number] Admin: 02/14/21 20:51 Dose: 5,000 units Documented by: [id number] Admin: 02/14/21 13:59 Dose: 5,000 units Documented by: [id number] Admin: 02/14/21 06:33 Dose: 5,000 units Documented by: [id number] Admin: 02/13/21 22:35 Dose: 5,000 units Documented by: [id number] Admin: 02/13/21 14:29 Dose: 5,000 units Documented by: [id number] Admin: 02/13/21 06:18 Dose: 5,000 units Documented by: [id number] Admin: 02/12/21 21:38 Dose: 5,000 units Documented by: [id number] Admin: 02/12/21 15:09 Dose: 5,000 units Documented by: [id number] Admin: 02/12/21 06:18 Dose: 5,000 units Documented by: [id number] Hydralazine HCl (Hydralazine Hcl 20 Mg/Ml Vial) 10 mg IV Q6H PRN PRN Reason: Hypertension Stop: 03/14/21 14:51 Last Admin: 02/21/21 08:41 Dose: 10 mg Documented by: [id number] Admin: 02/20/21 07:47 Dose: 10 mg Documented by: [id number] Cosigned by: [id number] Admin: 02/12/21 20:03 Dose: 10 mg Documented by: [id number] Clindamycin Phosphate 900 mg/ (Dextrose) 56 mls @ 112 mls/hr IV Q8H [facility] Stop: 02/23/21 08:59 Last Infusion: 02/21/21 10:57 Dose: 0 mls/hr Documented by: [id number] Admin: 02/21/21 08:39 Dose: 112 mls/hr Documented by: [id number] Infusion: 02/21/21 00:45 Dose: 0 mls/hr Documented by: [id number] Admin: 02/21/21 00:04 Dose: 112 mls/hr Documented by: [id number] Infusion: 02/20/21 17:18 Dose: 0 mls/hr Documented by: [id number] Admin: 02/20/21 16:45 Dose: 112 mls/hr Documented by: [id number] Infusion: 02/20/21 10:22 Dose: 0 mls/hr Documented by: [id number] Admin: 02/20/21 09:24 Dose: 112 mls/hr Documented by: [id number] Cosigned by: [id number] Infusion: 02/20/21 07:02 Dose: 0 mls/hr Documented by: [id number] Admin: 02/20/21 02:03 Dose: 112 mls/hr Documented by: [id number] Infusion: 02/19/21 18:04 Dose: 0 mls/hr Documented by: [id number] Admin: 02/19/21 17:22 Dose: 112 mls/hr Documented by: [id number] Infusion: 02/19/21 10:48 Dose: 0 mls/hr Documented by: [id number] Admin: 02/19/21 10:05 Dose: 112 mls/hr Documented by: [id number] Infusion: 02/19/21 00:43 Dose: 0 mls/hr Documented by: [id number] Admin: 02/19/21 00:11 Dose: 112 mls/hr Documented by: [id number] Infusion: 02/18/21 17:18 Dose: 0 mls/hr Documented by: [id number] Admin: 02/18/21 16:43 Dose: 112 mls/hr Documented by: [id number] Infusion: 02/18/21 09:22 Dose: 0 mls/hr Documented by: [id number] Admin: 02/18/21 08:41 Dose: 112 mls/hr Documented by: [id number] Infusion: 02/18/21 02:12 Dose: 0 mls/hr Documented by: [id number] Admin: 02/18/21 00:44 Dose: 112 mls/hr Documented by: [id number] Infusion: 02/17/21 17:11 Dose: 0 mls/hr Documented by: [id number] Admin: 02/17/21 16:22 Dose: 112 mls/hr Documented by: [id number] Infusion: 02/17/21 09:04 Dose: 0 mls/hr Documented by: [id number] Admin: 02/17/21 08:28 Dose: 112 mls/hr Documented by: [id number] Infusion: 02/17/21 01:41 Dose: 0 mls/hr Documented by: [id number] Admin: 02/17/21 01:08 Dose: 112 mls/hr Documented by: [id number] Infusion: 02/16/21 17:11 Dose: 0 mls/hr Documented by: [id number] Admin: 02/16/21 16:41 Dose: 112 mls/hr Documented by: [id number] Infusion: 02/16/21 09:38 Dose: 0 mls/hr Documented by: [id number] Admin: 02/16/21 09:07 Dose: 112 mls/hr Documented by: [id number] Cefepime HCl 2,000 mg/ Syringe 20 mls @ 5 mls/min IV Q24H [facility]; Protocol Stop: 02/23/21 08:59 Last Admin: 02/21/21 08:39 Dose: 5 mls/min Documented by: [id number] Admin: 02/20/21 09:25 Dose: 5 mls/min Documented by: [id number] Cosigned by: [id number] Admin: 02/19/21 10:05 Dose: 5 mls/min Documented by: [id number] Admin: 02/18/21 08:41 Dose: 5 mls/min Documented by: [id number] Admin: 02/17/21 08:28 Dose: 5 mls/min Documented by: [id number] Admin: 02/16/21 09:07 Dose: 5 mls/min Documented by: [id number] Promethazine HCl 12.5 mg/ (Sodium Chloride) 50.5 mls @ 202 mls/hr IV Q6H PRN PRN Reason: Nausea And Vomiting Stop: 03/23/21 00:11 Last Infusion: 02/21/21 02:08 Dose: 0 mls/hr Documented by: [id number] Admin: 02/21/21 00:42 Dose: 202 mls/hr Documented by: [id number] Insulin Aspart (Insulin Aspart 100 Units/Ml 3 Ml Pen) 0 units SC ACHS [facility] Stop: 03/14/21 03:29 Last Admin: 02/21/21 08:37 Dose: 2 units Documented by: [id number] Cosigned by: [id number] Admin: 02/20/21 20:10 Dose: Not Given Documented by: [id number] Cosigned by: [id number] Admin: 02/20/21 17:17 Dose: Not Given Documented by: [id number] Cosigned by: [id number] Admin: 02/20/21 12:02 Dose: 1 units Documented by: [id number] Cosigned by: [id number] Admin: 02/20/21 07:36 Dose: 1 units Documented by: [id number] Cosigned by: [id number] Admin: 02/19/21 21:54 Dose: Not Given Documented by: [id number] Cosigned by: [id number] Admin: 02/19/21 17:09 Dose: 4 units Documented by: [id number] Cosigned by: [id number] Admin: 02/19/21 12:04 Dose: Not Given Documented by: [id number] Admin: 02/19/21 08:19 Dose: 3 units Documented by: [id number] Cosigned by: [id number] Admin: 02/18/21 21:18 Dose: 4 units Documented by: [id number] Cosigned by: [id number] Admin: 02/18/21 16:56 Dose: 2 units Documented by: [id number] Cosigned by: [id number] Admin: 02/18/21 11:48 Dose: Not Given Documented by: [id number] Cosigned by: [id number] Admin: 02/18/21 08:58 Dose: 4 units Documented by: [id number] Cosigned by: [id number] Admin: 02/17/21 21:54 Dose: Not Given Documented by: [id number] Admin: 02/17/21 17:13 Dose: 3 units Documented by: [id number] Cosigned by: [id number] Admin: 02/17/21 12:01 Dose: 4 units Documented by: [id number] Cosigned by: [id number] Admin: 02/17/21 08:39 Dose: 4 units Documented by: [id number] Cosigned by: [id number] Admin: 02/16/21 21:03 Dose: Not Given Documented by: [id number] Admin: 02/16/21 16:54 Dose: 4 units Documented by: [id number] Cosigned by: [id number] Admin: 02/16/21 12:02 Dose: 1 units Documented by: [id number] Cosigned by: [id number] Admin: 02/16/21 07:54 Dose: Not Given Documented by: [id number] Cosigned by: [id number] Admin: 02/15/21 21:27 Dose: Not Given Documented by: [id number] Admin: 02/15/21 17:05 Dose: 4 units Documented by: [id number] Cosigned by: [id number] Admin: 02/15/21 13:04 Dose: 3 units Documented by: [id number] Cosigned by: [id number] Admin: 02/15/21 08:00 Dose: 1 units Documented by: [id number] Cosigned by: [id number] Admin: 02/14/21 20:28 Dose: Not Given Documented by: [id number] Admin: 02/14/21 17:07 Dose: 4 units Documented by: [id number] Cosigned by: [id number] Admin: 02/14/21 12:34 Dose: Not Given Documented by: [id number] Admin: 02/14/21 08:51 Dose: 13 units Documented by: [id number] Cosigned by: [id number] Admin: 02/13/21 22:38 Dose: Not Given Documented by: [id number] Admin: 02/13/21 17:04 Dose: 4 units Documented by: [id number] Cosigned by: [id number] Admin: 02/13/21 12:08 Dose: 5 units Documented by: [id number] Cosigned by: [id number] Admin: 02/13/21 08:13 Dose: 1 units Documented by: [id number] Cosigned by: [id number] Admin: 02/12/21 21:39 Dose: Not Given Documented by: [id number] Cosigned by: [id number] Admin: 02/12/21 17:10 Dose: 2 units Documented by: [id number] Cosigned by: [id number] Admin: 02/12/21 12:58 Dose: 7 units Documented by: [id number] Cosigned by: [id number] Admin: 02/12/21 08:20 Dose: 7 units Documented by: [id number] Cosigned by: [id number] Admin: 02/12/21 03:59 Dose: 9 units Documented by: [id number] Cosigned by: [id number] Insulin Glargine (Insulin Glargine Solostar 100 Units/Ml 3 Ml Pen) 7 units SQ HS [facility] Stop: 03/16/21 16:59 Last Admin: 02/20/21 20:12 Dose: 7 units Documented by: [id number] Cosigned by: [id number] Admin: 02/19/21 21:53 Dose: 7 units Documented by: [id number] Cosigned by: [id number] Admin: 02/18/21 20:39 Dose: 7 units Documented by: [id number] Cosigned by: [id number] Admin: 02/17/21 21:46 Dose: 7 units Documented by: [id number] Cosigned by: [id number] Admin: 02/16/21 21:05 Dose: 7 units Documented by: [id number] Cosigned by: [id number] Admin: 02/15/21 21:28 Dose: 7 units Documented by: [id number] Cosigned by: [id number] Admin: 02/14/21 17:07 Dose: 7 units Documented by: [id number] Cosigned by: [id number] Labetalol HCl (Labetalol Hcl Iv 5 Mg/Ml 20ml) 5 mg IV Q6H PRN PRN Reason: Hypertension Stop: 03/14/21 14:50 Last Admin: 02/20/21 20:11 Dose: 5 mg Documented by: [id number] Cosigned by: [id number] Lactobacillus Acidoph/Casei/Rhamnos (Advanced Probiotic 1250 Mg Capsule) 1 cap PO BID [facility] Stop: 03/14/21 08:59 Last Admin: 02/21/21 10:24 Dose: Not Given Documented by: [id number] Admin: 02/20/21 20:20 Dose: 1 cap Documented by: [id number] Admin: 02/20/21 09:28 Dose: 1 cap Documented by: [id number] Cosigned by: [id number] Admin: 02/19/21 21:54 Dose: 1 cap Documented by: [id number] Admin: 02/19/21 08:29 Dose: 1 cap Documented by: [id number] Admin: 02/18/21 20:29 Dose: 1 cap Documented by: [id number] Admin: 02/18/21 08:42 Dose: 1 cap Documented by: [id number] Admin: 02/17/21 21:45 Dose: 1 cap Documented by: [id number] Admin: 02/17/21 08:32 Dose: 1 cap Documented by: [id number] Admin: 02/16/21 20:52 Dose: 1 cap Documented by: [id number] Admin: 02/16/21 10:19 Dose: Not Given Documented by: [id number] Admin: 02/15/21 20:48 Dose: 1 cap Documented by: [id number] Admin: 02/15/21 13:00 Dose: 1 cap Documented by: [id number] Admin: 02/14/21 20:31 Dose: 1 cap Documented by: [id number] Admin: 02/14/21 08:50 Dose: 1 cap Documented by: [id number] Admin: 02/13/21 22:36 Dose: 1 cap Documented by: [id number] Admin: 02/13/21 08:13 Dose: 1 cap Documented by: [id number] Admin: 02/12/21 21:38 Dose: 1 cap Documented by: [id number] Admin: 02/12/21 08:14 Dose: 1 cap Documented by: [id number] Levetiracetam (Levetiracetam 500 Mg Tab) 500 mg PO BID [facility] Stop: 03/18/21 08:59 Last Admin: 02/19/21 08:25 Dose: 500 mg Documented by: [id number] Admin: 02/18/21 20:58 Dose: 500 mg Documented by: [id number] Admin: 02/18/21 08:27 Dose: 500 mg Documented by: [id number] Admin: 02/17/21 21:42 Dose: 500 mg Documented by: [id number] Admin: 02/17/21 08:32 Dose: 500 mg Documented by: [id number] Admin: 02/16/21 20:52 Dose: 500 mg Documented by: [id number] Admin: 02/16/21 11:56 Dose: 500 mg Documented by: [id number] Metoclopramide HCl (Metoclopramide Hcl 5 Mg Tablet) 5 mg PO TID [facility] Stop: 03/18/21 08:59 Last Admin: 02/21/21 10:24 Dose: Not Given Documented by: [id number] Admin: 02/20/21 20:21 Dose: 5 mg Documented by: [id number] Admin: 02/20/21 15:23 Dose: 5 mg Documented by: [id number] Admin: 02/20/21 09:28 Dose: 5 mg Documented by: [id number] Cosigned by: [id number] Admin: 02/19/21 21:53 Dose: 5 mg Documented by: [id number] Admin: 02/19/21 15:31 Dose: 5 mg Documented by: [id number] Admin: 02/19/21 08:25 Dose: 5 mg Documented by: [id number] Admin: 02/18/21 20:30 Dose: 5 mg Documented by: [id number] Admin: 02/18/21 13:19 Dose: 5 mg Documented by: [id number] Admin: 02/18/21 08:25 Dose: 5 mg Documented by: [id number] Admin: 02/17/21 21:03 Dose: 5 mg Documented by: [id number] Admin: 02/17/21 13:32 Dose: 5 mg Documented by: [id number] Admin: 02/17/21 08:30 Dose: 5 mg Documented by: [id number] Admin: 02/16/21 20:54 Dose: 5 mg Documented by: [id number] Admin: 02/16/21 12:14 Dose: Not Given Documented by: [id number] Admin: 02/16/21 11:56 Dose: 5 mg Documented by: [id number] Miscellaneous (Carbohydrates For Hypoglycemia ) 15 - 30 gm PO UD PRN PRN Reason: Hypoglycemia Protocol Stop: 03/14/21 03:03 Last Admin: 02/14/21 20:29 Dose: 15 gm Documented by: [id number] Miscellaneous (Remove Clonidine Patch) 1 ea N/A Q7D@2059 [facility] Stop: 03/22/21 22:44 Last Admin: 02/21/21 00:03 Dose: 1 ea Documented by: [id number] Miscellaneous (Check Clonidine Patch Placement) 1 ea N/A QS [facility] Stop: 03/23/21 07:59 Last Admin: 02/21/21 08:39 Dose: 1 ea Documented by: [id number] Morphine Sulfate (Morphine Sulfate 5 Mg/0.25 Ml Udp) 5 mg PO BID [facility] Stop: 03/04/21 11:29 Last Admin: 02/19/21 10:05 Dose: 5 mg Documented by: [id number] Admin: 02/18/21 20:36 Dose: 5 mg Documented by: [id number] Admin: 02/18/21 11:43 Dose: 5 mg Documented by: [id number] Multivitamins (Multivitamin Tab) 1 tab PO QAM [facility] Stop: 03/14/21 08:59 Last Admin: 02/21/21 10:25 Dose: Not Given Documented by: [id number] Admin: 02/20/21 09:29 Dose: 1 tab Documented by: [id number] Cosigned by: [id number] Admin: 02/19/21 08:30 Dose: 1 tab Documented by: [id number] Admin: 02/18/21 08:26 Dose: 1 tab Documented by: [id number] Admin: 02/17/21 08:33 Dose: 1 tab Documented by: [id number] Admin: 02/16/21 10:19 Dose: Not Given Documented by: [id number] Admin: 02/15/21 13:00 Dose: 1 tab Documented by: [id number] Admin: 02/14/21 08:49 Dose: 1 tab Documented by: [id number] Admin: 02/13/21 08:13 Dose: 1 tab Documented by: [id number] Admin: 02/12/21 08:15 Dose: 1 tab Documented by: [id number] Pantoprazole Sodium (Pantoprazole 40 Mg Tab) 40 mg PO QA DAMIR Stop: 03/14/21 08:59 Last Admin: 02/21/21 10:25 Dose: Not Given Documented by: [id number] Admin: 02/20/21 09:30 Dose: 40 mg Documented by: [id number] Cosigned by: [id number] Admin: 02/19/21 08:30 Dose: 40 mg Documented by: [id number] Admin: 02/18/21 08:25 Dose: 40 mg Documented by: [id number] Admin: 02/17/21 08:33 Dose: 40 mg Documented by: [id number] Admin: 02/16/21 11:57 Dose: 40 mg Documented by: [id number] Admin: 02/15/21 13:01 Dose: 40 mg Documented by: [id number] Admin: 02/14/21 08:50 Dose: 40 mg Documented by: [id number] Admin: 02/13/21 08:14 Dose: 40 mg Documented by: [id number] Admin: 02/12/21 08:15 Dose: 40 mg Documented by: [id number] Sucralfate (Sucralfate 1 Gm Tab) 1 gm PO ACHS DAMIR Stop: 03/14/21 07:29 Last Admin: 02/21/21 12:34 Dose: Not Given Documented by: [id number] Admin: 02/21/21 10:24 Dose: Not Given Documented by: [id number] Admin: 02/20/21 20:20 Dose: 1 gm Documented by: [id number] Admin: 02/20/21 15:23 Dose: 1 gm Documented by: [id number] Admin: 02/20/21 12:42 Dose: 1 gm Documented by: [id number] Admin: 02/20/21 07:48 Dose: 1 gm Documented by: [id number] Cosigned by: [id number] Admin: 02/19/21 21:53 Dose: 1 gm Documented by: [id number] Admin: 02/19/21 17:06 Dose: 1 gm Documented by: [id number] Admin: 02/19/21 11:30 Dose: 1 gm Documented by: [id number] Admin: 02/19/21 08:26 Dose: 1 gm Documented by: [id number] Admin: 02/18/21 20:58 Dose: 1 gm Documented by: [id number] Admin: 02/18/21 15:55 Dose: 1 gm Documented by: [id number] Admin: 02/18/21 11:25 Dose: 1 gm Documented by: [id number] Admin: 02/18/21 08:42 Dose: 1 gm Documented by: [id number] Admin: 02/17/21 21:44 Dose: 1 gm Documented by: [id number] Admin: 02/17/21 16:22 Dose: 1 gm Documented by: [id number] Admin: 02/17/21 11:56 Dose: 1 gm Documented by: [id number] Admin: 02/17/21 08:31 Dose: 1 gm Documented by: [id number] Admin: 02/16/21 20:54 Dose: 1 gm Documented by: [id number] Admin: 02/16/21 16:42 Dose: 1 gm Documented by: [id number] Admin: 02/16/21 10:41 Dose: Not Given Documented by: [id number] Admin: 02/16/21 09:50 Dose: Not Given Documented by: [id number] Admin: 02/15/21 20:45 Dose: 1 gm Documented by: [id number] Admin: 02/15/21 17:08 Dose: 1 gm Documented by: [id number] Admin: 02/15/21 13:02 Dose: 1 gm Documented by: [id number] Admin: 02/15/21 12:58 Dose: 1 gm Documented by: [id number] Admin: 02/14/21 20:32 Dose: 1 gm Documented by: [id number] Admin: 02/14/21 17:06 Dose: 1 gm Documented by: [id number] Admin: 02/14/21 12:32 Dose: 1 gm Documented by: [id number] Admin: 02/14/21 10:50 Dose: 1 gm Documented by: [id number] Admin: 02/13/21 23:35 Dose: Not Given Documented by: [id number] Admin: 02/13/21 17:05 Dose: 1 gm Documented by: [id number] Admin: 02/13/21 12:08 Dose: 1 gm Documented by: [id number] Admin: 02/13/21 08:17 Dose: 1 gm Documented by: [id number] Admin: 02/12/21 21:38 Dose: 1 gm Documented by: [id number] Admin: 02/12/21 17:10 Dose: 1 gm Documented by: [id number] Admin: 02/12/21 13:00 Dose: 1 gm Documented by: [id number] Admin: 02/12/21 08:10 Dose: 1 gm Documented by: [id number] Coding Level of Care Code 16769 Inpt Consult Level 2 Diagnoses Somnolence R40.0 Time Spent (min) 30
--- NOTE | 2021-02-21 14:03 | Pharmacy Report ---
Pharmacy Glycemic Short Note 2 - Date of Service February 21, 2021 - Glycemic Short BSG Results (Last 24 hours): 02/20/21 02/20/21 02/20/21 16:48 20:02 22:26 Glucose POC Glucose 145 H 108 H 135 H 02/20/21 02/21/21 02/21/21 22:55 06:29 07:51 Glucose 130 H 222 H POC Glucose 217 H 02/21/21 11:39 Glucose POC Glucose 264 H OUTPATIENT ANTIDIABETIC REGIMEN: * Basaglar 7 units HS * Humalog per scale ASSESSMENT: 02/21 * Pt has received 9 units of insulin over the past 24hrs * 7 units of basal with Lantus * 2 units of bolus with NovoLog * BSGs well controlled yesterday. Low CHO intake therefore regimen is weighted towards basal insulin. BSGs are running high today but hesitant to make any changes since this regimen has worked well for him. PO intake remains low- will not make any changes today and re-evaluate tomorrow. 02/19/21 * Patient's BSGs yesterday were 27-32-264-182 mg/dL and fasting today is 147 mg/dL. * Patient received 17 units of insulin yesterday (7 units of basal and 10 units of bolus). * Will continue with Lantus 7 units nightly as this has proven effective in the past. * Continue Novolog but will increase goal range as patient's BSGs have corrected lower than desired. 02/17/21 * Patient's BSGs yesterday were [phone] mg/dL and fasting today is 202 mg/dL. * Patient received 12 units of insulin yesterday (7 units of basal and 5 units of bolus). * Will continue with Lantus 7 units nightly as this has proven effective in the past. * Continue Novolog. 02/15/21 * Patient's BSGs yesterday were 405-73-848-45 mg/dL and fasting today is 98 mg/dL. * Patient received 24 units of insulin yesterday (7 units of basal and 17 units of bolus). * Will continue with Lantus 7 units nightly as this has proven effective in the past. * Loosen CF due to hypoglycemia at bedtime. Background * Mr Hamilton is a 55 y/o M with a PMH of T1DM who presents with hypertensive urgency and N/V. Pharmacy consulted on day 3 of hospitalization. * Patient received 15 units of insulin yesterday (5 units of basal and 10 units of bolus). BSGs [phone] mg/dL. Fasting today 327 mg/dL. * Lunch BSG 57 mg/dL due to overcorrection at breakfast. * Start lantus 7 units--- patient basal deficient and reason for hyperglycemia at breakfast. Give slightly earlier at dinnertime. * Loosen Novolog to parameters that were previously affective. PLAN FOR INPATIENT GLYCEMIC CONTROL: * Basal insulin * Lantus 7 units SQ HS * Bolus insulin * NovoLog per scale ACHS or Q6hrs while NPO * Goal Range: Low 120 mg/dL - High 160 mg/dL * Correction Factor: 55 mg/dL/unit * Nutritional / Prandial insulin per carb ratio of 1 unit per 18 grams CHO consumed PLAN FOR DISCHARGE: * Continue to follow-up with outpatient provider for in-depth insulin adjustments.
[2021-02-21] MEDS ORDERED: NITROGLYCERIN 2% OINTMENT 30GM TUBE EXT SCH (18:00)
[2021-02-21] MEDS: SODIUM CHLORIDE 0.9% 1000ML 1,000 ML IV SCH (18:27)
[2021-02-21] MEDS: METOCLOPRAMIDE HCL INJ 5 MG/ML 2 ML VIAL IV SCH (18:28)
--- NOTE | 2021-02-21 19:24 | Hospitalist Progress Note ---
Date of Service February 21, 2021 Assessment & Plan (1) Gastroparesis: (2) Nausea & vomiting: (3) Acute on chronic renal failure: (4) Somnolence: Plan: (1) Acute on chronic renal failure: (2) Gastroparesis: Plan: (1) Asymptomatic hypertensive urgency: (2) Nausea & vomiting: Plan: per Dr. Meier's notes: 55-year-old male with NSCC of lung stage III s/p surgery and incomplete chemo secondary to intolerance, COPD, ulcerative colitis, type I DM with complication [gastroparesis, PDN], chronic pain on narcotics, HTN, past tobacco abuse, CKD [baseline around 2.5-3], chronic anemia and seizure disorder came in 02/12 with chief complaint of abdominal pain associated with nausea and vomiting. Is being managed for the following: #. Nausea and vomiting: Secondary to worsening gastroparesis and severe esophagitis complicated by increased pain medication requirement. H/o gastroparesis,and gastric pacemaker. Also on narcotics for chronic pain. Presented with nausea, vomiting and diarrhea Per patient, he recently visited his motilitist in [facility] and his gastric pacer was tweaked. GI consulted: Increase the Reglan dose to 3 times daily. Per patient, patient is scheduled for upper scope and possible dilation in [facility] on February 22. 02/22/2021 Patient noted to be more confused, as well as having nausea and vomiting multiple times overnight Discussed with GI, given 1 dose of Emend this morning-nausea and vomiting improved since today Repeat KUB showing possible partial small bowel obstruction-but patient having good bowel movement N.p.o. for now except meds and sips of water Repeat KUB tomorrow Aspiration Pneumonia Hypoxic Respiratory Failure -- off Bipap, off oxygen -- blood cultures negative so far urine culture negative so far -- afebrile Remains on 2 L of oxygen via nasal cannula -- continue Cefepime + Clindamycin Day 6/7 monitor #. IVAN over Chronic kidney disease stage III: His baseline creatinine used to be 2.5-3 according to his recent labs, Creatinine trended up to 3.78 today, patient reports he has been eating and drinking good and has not been vomiting. - crea slightly improved from 4->3.9, today 3.5 - meds renally dosed Given NSS today as patient is having multiple episodes of nausea and vomiting Nephro on board monitor closely #. Hypertensive urgency: Presented with blood pressure of 164/94 Patient reports that he has always had high blood pressure Blood pressure currently fairly under control continue with home meds Use as needed IV medications per protocol. Follow-up with PCP for reevaluation and dose adjustment as appropriate upon discharge --BP elevated today, unable to take p.o. amlodipine Hydralazine as needed ordered # Altered mental status Likely secondary to narcotic in the setting of acute renal failure --Patient's usual MS Contin, oxycodone, gabapentin, Lexapro, Keppra renally dosed However patient continued to be drowsy Bottle of oxycodone found in patient's back, but patient denies using this well admitted --Currently, MS Contin, oxycodone, gabapentin, Lexapro on hold Psych, pain management, neurologist consulted Follow recommendations regarding restarting above meds carefully #. Type 1 diabetes: His recent HbA1c was 7.4%. Continue his long-acting insulin sliding scale. consulted pharmacy glycemic control consult #. Non-small cell lung cancer, stage III, status post surgery, incomplete chemotherapy secondary to tolerance. Needs to follow up with PCP and oncologist. Patient aware. #. History of seizure disorder, --Usually on Keppra BID #. Chronic anemia: Hemoglobin seems stable. #. History of tobacco abuse. #. Chronic pain: pain meds on hold due to drowsiness, refer to above #. Depression: Lexapro held due to drowsiness, refer to above #. History of chronic obstructive pulmonary disease: Continue home inhalers. DVT prophylaxis: Heparin SQ Position Lives at home Pending PT and OT evaluation Admission and Anticipated Discharge Date Admission Date: February 14, 2021 Subjective Follow-up for gastroparesis, acute renal failure, etc. Events overnight noted Patient became more confused and drowsy, was having nausea and vomiting Seen in a.m., was in the bathroom, having a bowel movement also had emesis, brown Not in distress, appears weak Reevaluated late in the afternoon Patient sleeping but easily awakened with verbal stimuli Oriented, states he feels tired But follows commands such as raising his arms Denies chest pain, shortness of breath, cough, palpitations, dizziness Drifts back to sleep Review of Systems Review of Systems: all noted and negative except for above Physical Exam Physical Exam: General-drowsy, oriented x 2, not in distress, speaks in sentences with no effort or accessory muscle use Eyes- anicteric Neck- no JVD Lungs- clear BS, bilaterally, no crackles or wheezing Heart- normal rate, regular rhythm; no murmurs Abdomen- normal bowel sounds, nondistended, soft, nontender Extremities- no pretibial edema, no calf tenderness Neuro- alert, oriented x2; no gross focal neurologic deficits Skin- warm & dry Results & Data Results & Data ([facility]) Vital Signs (Past 12 Hours) Vital Signs Temp Pulse Pulse Resp BP Pulse Ox 02/21/21 16:46 36.4 C L 71 16 171/71 H 97 02/21/21 11:43 36.4 C L 99 H 16 166/73 H 99 02/21/21 09:35 99 H 02/21/21 07:53 36.7 C 100 H 14 189/97 H 99 all noted and reviewed including below (1) Nausea & vomiting Vomiting Intractability: non-intractable Vomiting type: unspecified Qualified Code(s): R11.2 - Nausea with vomiting, unspecified
[2021-02-21] MEDS: INSULIN GLARGINE SOLOSTAR 100 UNITS/ML 3 ML PEN SQ SCH (21:08)
[2021-02-22] MEDS: CHECK CLONIDINE PATCH PLACEMENT SCH ×4 (02:08→23:51)
[2021-02-22] MEDS: CLINDAMYCIN 900 MG in DEXTROSE 5% 50 ML IV SCH ×3 (02:08→17:04)
[2021-02-22] MEDS: METOCLOPRAMIDE HCL INJ 5 MG/ML 2 ML VIAL IV SCH ×3 (02:10→17:05)
[2021-02-22] MEDS: SODIUM CHLORIDE 0.9% 1000ML 1,000 ML IV SCH (06:11)
[2021-02-22] MEDS: HEPARIN SOD 5,000 UNIT/0.5 ML VIAL SQ SCH ×3 (06:35→21:07)
[2021-02-22 08:23] LABS: BUN Creatinine Ratio 18.8 (10-20); Calcium 8.4 mg/dl (8.5-10.1); Creatinine Clr Calc Pharmacy 22.9 ml/min; Est GFR (African American) 21.3 ml/min; Est GFR (Non-African American) 18.4 ml/min; Potassium 3.5 mmol/L (3.5-5.1)
[2021-02-22] MEDS: CEFEPIME 2,000 MG in SYRINGE 0 ML IV SCH (08:58)
[2021-02-22] MEDS ORDERED: INSULIN GLARGINE SOLOSTAR 100 UNITS/ML 3 ML PEN SQ ONE (09:00)
[2021-02-22] MEDS: INSULIN ASPART 100 UNITS/ML 3 ML PEN SC SCH ×4 (09:01→20:53)
[2021-02-22] MEDS: hydrALAZINE HCL 20 MG/ML VIAL IV PRN ×2 (09:10→21:20)
[2021-02-22] MEDS: amLODIPine BESYLATE 5 MG TAB PO SCH (09:57)
[2021-02-22] MEDS: PANTOprazole 40 MG TAB PO SCH (09:57)
[2021-02-22] MEDS: FLUTICASONE/VILANTEROL 200/25MCG 14 PUFFS/INHALER INH SCH (09:57)
[2021-02-22] MEDS: MULTIVITAMIN TAB PO SCH (09:57)
[2021-02-22] MEDS: SUCRALFATE 1 GM TAB PO SCH ×4 (09:57→20:47)
[2021-02-22] MEDS: ADVANCED PROBIOTIC 1250 MG CAPSULE PO SCH ×2 (09:57→20:47)
--- NOTE | 2021-02-22 10:37 | Pharmacy Report ---
Pharmacy Glycemic Short Note 2 - Date of Service February 22, 2021 - Glycemic Short BSG Results (Last 24 hours): 02/21/21 02/21/21 02/21/21 11:39 16:23 20:02 Glucose POC Glucose 264 H 224 H 215 H 02/22/21 02/22/21 07:23 07:32 Glucose 255 H POC Glucose 279 H OUTPATIENT ANTIDIABETIC REGIMEN: * Basaglar 7 units HS * Humalog per scale ASSESSMENT: 02/22 * BSGs all elevated yesterday- may be a response form increased pain. BSGs still high this morning. Will tighten CF and give a one time extra dose of Lantus 2 units to cover sustained hyperglycemia. Conservative changes since pt with hx of large BSG swings with doses of insulin above ~10 units. 02/21 * Pt has received 9 units of insulin over the past 24hrs * 7 units of basal with Lantus * 2 units of bolus with NovoLog * BSGs well controlled yesterday. Low CHO intake therefore regimen is weighted towards basal insulin. BSGs are running high today but hesitant to make any changes since this regimen has worked well for him. PO intake remains low- will not make any changes today and re-evaluate tomorrow. 02/19/21 * Patient's BSGs yesterday were 56-80-230-182 mg/dL and fasting today is 147 mg/dL. * Patient received 17 units of insulin yesterday (7 units of basal and 10 units of bolus). * Will continue with Lantus 7 units nightly as this has proven effective in the past. * Continue Novolog but will increase goal range as patient's BSGs have corrected lower than desired. 02/17/21 * Patient's BSGs yesterday were [phone] mg/dL and fasting today is 202 mg/dL. * Patient received 12 units of insulin yesterday (7 units of basal and 5 units of bolus). * Will continue with Lantus 7 units nightly as this has proven effective in the past. * Continue Novolog. 02/15/21 * Patient's BSGs yesterday were 169-08-663-45 mg/dL and fasting today is 98 mg/dL. * Patient received 24 units of insulin yesterday (7 units of basal and 17 units of bolus). * Will continue with Lantus 7 units nightly as this has proven effective in the past. * Loosen CF due to hypoglycemia at bedtime. Background * Mr Hamilton is a 55 y/o M with a PMH of T1DM who presents with hypertensive urgency and N/V. Pharmacy consulted on day 3 of hospitalization. * Patient received 15 units of insulin yesterday (5 units of basal and 10 units of bolus). BSGs [phone] mg/dL. Fasting today 327 mg/dL. * Lunch BSG 57 mg/dL due to overcorrection at breakfast. * Start lantus 7 units--- patient basal deficient and reason for hyperglycemia at breakfast. Give slightly earlier at dinnertime. * Loosen Novolog to parameters that were previously affective. PLAN FOR INPATIENT GLYCEMIC CONTROL: * Basal insulin * Lantus 7 units SQ HS * Additional one time dose of Lantus 2 units this AM for sustained 24 hrs hyperglycemia. * Bolus insulin * NovoLog per scale ACHS or Q6hrs while NPO * Goal Range: Low 120 mg/dL - High 160 mg/dL * Correction Factor: 40 mg/dL/unit (tighten from 55) * Nutritional / Prandial insulin per carb ratio of 1 unit per 18 grams CHO consumed PLAN FOR DISCHARGE: * Continue to follow-up with outpatient provider for in-depth insulin adjustments.
--- NOTE | 2021-02-22 11:07 | Nephrology Progress Note ---
Date of Service February 22, 2021 Assessment & Plan Admission and Anticipated Discharge Date Admission Date: February 14, 2021 Subjective Assessment & Plan (1) Acute on chronic renal failure: Plan: Slight IVAN stage but this is mainly rapidly progressive CKD, now stage 4 w/ underlying 1 gm daily albuminuria at least. Creat has been going up steadily last 1 year and is most likely from his long standing Uncontrolled DM. Chemistries and volume status acceptable. Baseline urine c/w chronic inflammation such as nephropathy or GN or chronic interstitial nephritis. He has 4 g proteinuria here (previously in the 1 to 2 g daily range); -defer to primary service to titrate down opiate and gabapentin doses metabolites of which can accumulate in renal failure and cause altered mentation -daily bmp -Na went up a bit so give 1/2 NS 1000 ml today We talked about his potential need for dialysis and he is open to this if the need arises. Does not need now but very likely will need within next 6 month to 1 year. -will absolutely need close renal f/u after d/c, possibly in [place]. He lives alone and does have issues with f/u and transport etc --creat seems to be stable in the mid to high 3's--new baseline for him 2 HTN--_first need to check Standing BP before adjusting BP meds. High likelihood of Orthostatic Hypotension from Diabetic neuropathy. if high will go up on Amlo and raise BB. Subjective resting quietly; denies worsening sob, uncontrolled pain, n/v, poor po intake, voiding concerns Review of Systems Review of Systems: All systems reviewed & are unremarkable except as noted in Subjective Physical Exam Constitutional: well developed, + ill appearing and + frail appearing; no acute distress Eyes: EOM intact bilaterally ENMT: Ears: no external ear abnormality Nose: no external nose abnormality Mouth: + dry oral mucous membranes Neck: no nuchal rigidity Respiratory: normal respiratory effort and + cough (occasional) Auscultation: + diminished lung sounds Cardiovascular: Rate/Rhythm: regular rate and regular rhythm Extremities: + edema (Left ankle) Gastrointestinal (Abdomen): Inspection/Auscultation: normal bowel sounds Pe rcussion/Palpation: abdomen soft; abdomen nontender Musculoskeletal: Extremities: + abnormal strength (as above w/ general appearance) Skin: no rashes, warm and dry Psychiatric: Orientation: oriented x 3 and cooperative Eye Contact: good eye contact Insight: good insight Results & Data ([facility]) Vital Signs (Past 12 Hours) Vital Signs Temp Pulse Pulse Resp BP BP Pulse Ox 02/22/21 08:00 92 H 02/22/21 07:57 36.8 C 56 L 16 166/99 H 96 02/22/21 03:52 36.9 C 99 H 16 198/101 H 96 02/21/21 23:19 36.6 C 97 H 16 118/67 93
[2021-02-22] MEDS ORDERED: DEXTROSE 5% 1,000 ML IV SCH (11:15)
--- NOTE | 2021-02-22 12:43 | Neurology Progress Note ---
Date of Service February 22, 2021 Assessment & Plan (1) Seizure disorder: Plan: 1. continue Keppra 500 mg q12 hours - renal dosing 2. keppra level 12/24 40.6- repeat pending 3. no driving for 6 months from last seizure date, no heights, no bathing or swimming alone 4. antibiotics can decrease seizure threshold 5. does not need MRI brain- now more responsive 6. EEG- not needed at this time will sign off for now follow up with neurology in 4-6 weeks (2) Acute on chronic renal failure: Plan: 1. needs DM control to avoid further renal failure which he has not had in the past- likely will need dialysis in the future. (3) Opiate dependence: Plan: 1. pain mtg recommending decrease in dosing of narcotics 2. gabapentin -renal dosing 400 mg to 1400 mg daily twice daily 3. needs alternative to opiates however has been long time narcotic use Admission and Anticipated Discharge Date Admission Date: February 14, 2021 Supervising Physician Co-Signing Physician Notes Patient was seen and examined. Altered mentation has improved. Appears to be following commands although does not appear to want to participate. No additional neurology work up necessary at this time. Please contact me with any additional questions or concerns. Gabriele Aguilar is a 55 year old male with a PMH-COPD, metastatic NSCLC status post surgery, incomplete chemotherapy secondary to intolerance, IBD, gastroparesis status post gastric pacemaker, chronic pain on narcotics, HTN, DM1, DM neuropathy, past tobacco abuse, CRI (baseline creatinine 2), chronic anemia (baseline hemoglobin 9), seizure disorder. neurogenic bladder. He was admitted to [facility] 02/12/2021 for abdominal discomfort. He has had multiple admissions since December 2020 for abdominal pain, nausea vomiting attributed to gastroparesis. was also admitted on 02/04-02/06/2021 and advised to follow-up with [place] surgeon for gastric pacer check. He was last seen in our office 11/18/2020 and at that time he was on Keppra 750 mg q 12 hours and last reported seizure possibly November 2019. He is more alert today and answering questions. denies pain, no other complaints. Review of Systems Review of Systems: All systems reviewed & are unremarkable except as noted in HPI & below Physical Exam Physical Exam: Physical Exam: Constitutional: appearance ill appearing Ears, Nose, Mouth and Throat: mucous membranes moist, no injection and skin normal, eyes normal Cardiovascular: normal S-1 and S-2 and regular rate and rhythm Respiratory: course breath sounds Musculoskeletal: no peripheral edema thenar atrophy in bilateral hands Skin: no stigmata of neurocutaneous disease noted and normal and intact Eyes: extraocular muscles intact (EOMI) NEUROLOGIC EXAMINATION: Mental status: Alert and minimally interactive, but answering questions today one word answers Oriented to person Speech minimal verbal responses Cranial Nerves face appear symmetric Reflexes: Deep tendon reflexes were decreased bilaterally Coordination: unable to test Gait/Stance: Posture lying in bed able to reposition himself with out difficulty and sits up to talk Strength: appears to be very deconditioned. Results & Data ([facility]) Vital Signs (Past 12 Hours) Vital Signs Temp Pulse Pulse Resp BP BP Pulse Ox 02/22/21 08:00 92 H 02/22/21 07:57 36.8 C 56 L 16 166/99 H 96 02/22/21 03:52 36.9 C 99 H 16 198/101 H 96 Laboratory Results Abnormal lab results 02/21/21 02/21/21 02/22/21 Range/Units 16:23 20:02 07:23 Sodium (136-145) mmol/L Chloride (98-107) mmol/L BUN (7-18) mg/dl Creatinine (0.6-1.4) mg/dl Glucose (70-99) mg/dl POC Glucose 224 H 215 H 279 H (70-99) mg/dl Calcium (8.5-10.1) mg/dl Stool Occult Bld Scrn (Negative) 02/22/21 02/22/21 02/22/21 Range/Units 07:32 09:30 11:19 Sodium 146 H (136-145) mmol/L Chloride 116 H (98-107) mmol/L BUN 66 H (7-18) mg/dl Creatinine 3.53 H (0.6-1.4) mg/dl Glucose 255 H (70-99) mg/dl POC Glucose 239 H (70-99) mg/dl Calcium 8.4 L (8.5-10.1) mg/dl Stool Occult Bld Scrn Positive A (Negative) Diagnostic Findings no new images
[2021-02-22] MEDS: SODIUM CHLORIDE 0.45 % 1,000 ML IV SCH ×2 (12:50→21:07)
--- NOTE | 2021-02-22 13:59 | Hospitalist Progress Note ---
Date of Service February 22, 2021 Assessment & Plan (1) Gastroparesis: (2) Nausea & vomiting: (3) Acute on chronic renal failure: (4) Somnolence: Plan: (1) Acute on chronic renal failure: (2) Gastroparesis: Plan: (1) Asymptomatic hypertensive urgency: (2) Nausea & vomiting: Plan: per Dr. Meier's notes: 55-year-old male with NSCC of lung stage III s/p surgery and incomplete chemo secondary to intolerance, COPD, ulcerative colitis, type I DM with complication [gastroparesis, PDN], chronic pain on narcotics, HTN, past tobacco abuse, CKD [baseline around 2.5-3], chronic anemia and seizure disorder came in 02/12 with chief complaint of abdominal pain associated with nausea and vomiting. Is being managed for the following: #. Nausea and vomiting: Secondary to worsening gastroparesis and severe esophagitis complicated by increased pain medication requirement. H/o gastroparesis,and gastric pacemaker. Also on narcotics for chronic pain. Presented with nausea, vomiting and diarrhea Per patient, he recently visited his motilitist in [place] and his gastric pacer was tweaked. GI consulted: Increase the Reglan dose to 3 times daily. Per patient, patient is scheduled for upper scope and possible dilation in [place] on February 22. 02/22/2021 Patient noted to be more confused, as well as having nausea and vomiting multiple times overnight Discussed with GI, given 1 dose of Emend this morning-nausea and vomiting improved since today Repeat KUB showing possible partial small bowel obstruction-but patient having good bowel movement N.p.o. for now except meds and sips of water Repeat KUB tomorrow Aspiration Pneumonia Hypoxic Respiratory Failure -- off Bipap, off oxygen -- blood cultures negative so far urine culture negative so far -- afebrile Remains on 2 L of oxygen via nasal cannula -- continue Cefepime + Clindamycin Day 6/7 monitor #. IVAN over Chronic kidney disease stage III: His baseline creatinine used to be 2.5-3 according to his recent labs, Creatinine trended up to 3.78 today, patient reports he has been eating and drinking good and has not been vomiting. - crea slightly improved from 4->3.9, today 3.5 - meds renally dosed Given NSS today as patient is having multiple episodes of nausea and vomiting Nephro on board monitor closely #. Hypertensive urgency: Presented with blood pressure of 164/94 Patient reports that he has always had high blood pressure Blood pressure currently fairly under control continue with home meds Use as needed IV medications per protocol. Follow-up with PCP for reevaluation and dose adjustment as appropriate upon discharge --BP elevated today, unable to take p.o. amlodipine Hydralazine as needed ordered # Altered mental status Likely secondary to narcotic in the setting of acute renal failure --Patient's usual MS Contin, oxycodone, gabapentin, Lexapro, Keppra renally dosed However patient continued to be drowsy Bottle of oxycodone found in patient's back, but patient denies using this well admitted --Currently, MS Contin, oxycodone, gabapentin, Lexapro on hold Psych, pain management, neurologist consulted Follow recommendations regarding restarting above meds carefully #. Type 1 diabetes: His recent HbA1c was 7.4%. Continue his long-acting insulin sliding scale. consulted pharmacy glycemic control consult #. Non-small cell lung cancer, stage III, status post surgery, incomplete chemotherapy secondary to tolerance. Needs to follow up with PCP and oncologist. Patient aware. #. History of seizure disorder, --Usually on Keppra BID #. Chronic anemia: Hemoglobin seems stable. #. History of tobacco abuse. #. Chronic pain: pain meds on hold due to drowsiness, refer to above #. Depression: Lexapro held due to drowsiness, refer to above #. History of chronic obstructive pulmonary disease: Continue home inhalers. DVT prophylaxis: Heparin SQ Position Lives at home Pending PT and OT evaluation Admission and Anticipated Discharge Date Admission Date: February 14, 2021 Subjective Pt was seen and examined for follow up of lethargy, confusion, N/V Lying in bed resting comfortable Pt has been sleeping all night this morning He said that h feels tired Nurse noted that pt seems to be alittle confused Denies any chest pain, palpitation and SOB Review of Systems Review of Systems: All systems reviewed & are unremarkable except as noted in Subjective Physical Exam Physical Exam: General- No acute distress Head- atraumatic Eyes- PERRL, EOMI, ENT- oropharynx clear Neck- supple, no JVD Lungs- clear to auscultation Heart- regular rhythm; no murmur Abdomen- normal bowel sounds, soft, nontender Extremities- no calf tenderness Neuro- alert, oriented,; PERRL, EOMI; no facial palsy; no dysarthria Skin- warm & dry Results & Data Results & Data ([facility]) Vital Signs (Past 12 Hours) Vital Signs Temp Pulse Pulse Resp BP BP Pulse Ox 02/22/21 08:00 92 H 02/22/21 07:57 36.8 C 56 L 16 166/99 H 96 02/22/21 03:52 36.9 C 99 H 16 198/101 H 96 (1) Nausea & vomiting Vomiting Intractability: non-intractable Vomiting type: unspecified Qualified Code(s): R11.2 - Nausea with vomiting, unspecified
[2021-02-22] MEDS: INSULIN GLARGINE SOLOSTAR 100 UNITS/ML 3 ML PEN SQ SCH (20:53)
[2021-02-23] MEDS: METOCLOPRAMIDE HCL INJ 5 MG/ML 2 ML VIAL IV SCH ×3 (01:00→18:04)
--- NOTE | 2021-02-23 01:22 | Communication Note ---
Date of Service: February 23, 2021 120 AM Patient noted to have large dark liquid bowel movement with abdominal pain of 7/10 as per RN. FOBT done yesterday was positive as per RN. CT abdomen pelvis initial read: Minimal ground glass opacities right lung base raise the possibilityof a developing infectious or inflammatoryprocess. Small hiatal herniawith circumferential wall thickening of the distal esophaguswhich can be seen with esophagitis, with an underlying lesion not excluded. An EGD could be performed further evaluated clinicallyindicated Status post cholecystectomy. Abatterypack is visualized in the left ventral abdominal wall with a lead taking it intra-abdominal course and terminating in the region of the distal stomach. Air and ingested contents are visualized within a mildlydistended stomach which could be attributed to a recent meal versus gastroparesiswith gastric outlet obstruction considered less likely. The urinarybladder is distended. Mild anasarca and diffuse mesenteric edema mayindicate third spacing/fluid overload or lowprotein state. There is heterogeneityin osseous destruction of the left lateral ninth rib, suspicious for an osseous metastasis. Hg 6.9 (from 9.1 yesterday) AP Acute on chronic anemia secondary to UGI B IV PPI Transfuse PRBC to maintain hemoglobin above 7 Will request AM provider to contact GI in a.m. regarding GI bleed. N.p.o. until patient seen by GI Hold heparin subcu Patient father (Mr. Tank Hamilton) updated of developments over the phone. Phone consent for blood transfusion obtained from patient's father due to patient's disorientation. Patient father agreeable to blood transfusion for patient after being informed of attendant risks and complications. 4 AM Made aware of inability to obtain IV access to facilitate medications and blood transfusion despite multiple attempts by IV team. ICU team consulted for central line access. Consent for central line access placement obtained from patient's father over the phone. Patient's father agreeable to attendant procedural risks and complications.
[2021-02-23] MEDS ORDERED: ACETAMINOPHEN 1,000 MG/100 ML VIAL IV STA (01:23)
[2021-02-23] MEDS ORDERED: PANTOprazole 80 MG in DEXTROSE 5% 100 ML IV ONE (01:30)
[2021-02-23] MEDS: CLINDAMYCIN 900 MG in DEXTROSE 5% 50 ML IV SCH (02:28)
[2021-02-23 02:30] LABS: Hematocrit (blood only) 20.8 % (42-52); Hemoglobin 6.9 g/dL (14.0-18.0); Mean Corpuscular Hemoglobin 28.6 pg (25-34); Mean Corpuscular Hgb Conc 33.2 g/dL (32-36); Mean Corpuscular Volume 86.3 fL (80-100); Mean Platelet Volume 9.8 fL (7.4-10.4); Platelet Count 303 K/uL (130-400); RDW Coefficient of Variation 14.1 % (11.5-14.5); RDW Standard Deviation 44.3 fL (36.4-46.3); Red Blood Count 2.41 M/uL (4.7-6.1); White Blood Count 6.44 K/uL (4.8-10.8)
[2021-02-23 02:45] LABS: Basophils # (auto) 0.02 K/uL (0-0.2); Basophils % (auto) 0.3 %; Eosinophils # (auto) 0.09 K/uL (0-0.5); Eosinophils % (auto) 1.4 %; Immature Granulocytes # (auto) 0.05 K/uL (0.00-0.02); Immature Granulocytes % (auto) 0.8 %; Lymphocytes # (auto) 1.07 K/uL (1.2-3.4); Lymphocytes % (auto) 16.6 %; Monocytes # (auto) 0.92 K/uL (0.11-0.59); Monocytes % (auto) 14.3 %; Neutrophils # (auto) 4.29 K/uL (1.4-6.5); Neutrophils % (auto) 66.6 %; RBC Morphology Unremarkable
[2021-02-23 02:57] LABS: Prothrombin Time 10.6 Seconds (9.0-12.0)
[2021-02-23] MEDS ORDERED: SODIUM CHLORIDE 0.9% 250 ML IV PRN ×2 (03:26→13:49)
[2021-02-23 04:18] LABS: Albumin Level 2.2 gm/dl (3.4-5.0); BUN Creatinine Ratio 17.9 (10-20); Calcium 8.5 mg/dl (8.5-10.1); Creatinine Clr Calc Pharmacy 24.8 ml/min; Est GFR (African American) 23.4 ml/min; Est GFR (Non-African American) 20.2 ml/min; Magnesium 1.5 mg/dl (1.8-2.4); Potassium 3.2 mmol/L (3.5-5.1)
[2021-02-23 04:25] LABS: Albumin Globulin Ratio 0.5 (0.9-2); Bilirubin,Total 0.2 mg/dl (0.2-1); Globulin 4.6 gm/dl (2.5-4.0); Total Protein 6.8 gm/dl (6.4-8.2)
[2021-02-23] MEDS: INSULIN ASPART 100 UNITS/ML 3 ML PEN SC SCH ×4 (05:30→21:26)
[2021-02-23] MEDS ORDERED: ONDANSETRON INJ 2 MG/ML 2 ML VIAL IV PRN (07:20)
[2021-02-23] MEDS ORDERED: ONDANSETRON INJ 2 MG/ML 2 ML VIAL ONE (07:22)
--- NOTE | 2021-02-23 07:36 | XRay Report ---
SINGLE VIEW CHEST CLINICAL HISTORY: Serpiginous catheter placement. FINDINGS: An AP, portable, upright chest radiograph is compared to study dated 02/21/2021. The examin ation is degraded by portable technique and patient rotation. A right subclavian central catheter has been placed. The tip projects over the SVC. The cardiomediastinal silhouette is unremarkable. There is trace left pleural effusion and bibasilar atelectasis. No pneumothorax is seen. The bony thorax is grossly intact. IMPRESSION: 1. A right subclavian central venous catheter has been placed. No pneumothorax is identified post pro cedure. 2. There is trace residual left pleural effusion. ACT 112: Negative or not required by law. Electronically signed by: Russell Ty M.D. 02/23/2021 7:34 AM
[2021-02-23] MEDS: CHECK CLONIDINE PATCH PLACEMENT SCH ×2 (08:09→18:09)
[2021-02-23] MEDS: POTASSIUM CHLORIDE / WTR 10 MEQ/100 ML PLCT IV SCH ×4 (08:09→12:00)
[2021-02-23] MEDS: MAGNESIUM SULFATE / D5W 1 GM/100 ML BAG IV SCH ×2 (08:09→10:05)
[2021-02-23] MEDS: hydrALAZINE HCL 20 MG/ML VIAL IV PRN (08:11)
--- NOTE | 2021-02-23 08:46 | CT Scan Report ---
CT SCAN OF THE ABDOMEN AND PELVIS WITHOUT IV CONTRAST CLINICAL HISTORY: Generalized abdominal pain. GI bleeding. COMPARISON STUDY: Abdominal CT dated 02/03/2021. TECHNIQUE: CT scan of the abdomen and pelvis is performed from the lung bases to the proximal femora. Images are reviewed in the axial, sagittal, and coronal planes. IV contrast was not administered for this examination. A dose lowering technique was utilized adhering to the principles of ALARA. Note t hat the examination was performed in suboptimal fashion without oral and IV contrast. CT DOSE: 373.21 mGy.cm FINDINGS: Lung bases: The heart is normal in size and without pericardial effusion. The coronary arteries are d ensely calcified. Emphysematous changes suspected. Patchy airspace opacities are noted at the right l maikel base. Blunting loss in the left lung suggests previous surgical resection.. There is trace pleura l fluid at the left lung base. Circumferential wall thickening is noted in the distal esophagus and t here is a small hiatal hernia. Liver: The unenhanced liver is normal in size, contour, and attenuation. There is no intrahepatic el iary ductal dilatation. Gallbladder: Surgically absent noting clips in the gallbladder fossa. Spleen: Normal in size and attenuation. Pancreas: Unremarkable. Adrenal glands: A 1.8 cm right adrenal adenoma is unchanged. The left adrenal gland is normal as imag ed. Kidneys: The unenhanced kidneys are normal in size and without hydronephrosis. There are no renal guillermina culi identified. There is no evidence of contour deforming renal mass lesion. Abdominal vasculature: The abdominal aorta is normal in course and caliber noting mild atheroscleroti c calcification. Bowel: An electronic device is present in the left lower quadrant abdominal wall with leads extending to the stomach. There is no bowel obstruction. The appendix is not visualized. Peritoneum: There is no intraperitoneal free air or abdominal ascites. Lymphadenopathy: None. Pelvic viscera: The bladder is markedly distended but otherwise normal as imaged. The prostate and se sanchez vesicles are normal as visualized. Skeletal structures: There is mild to moderate lumbosacral spondylosis. Permeative destructive change is seen in the left lateral ninth rib. IMPRESSION: 1. Suboptimal examination without oral and IV contrast. 2. No acute infectious or inflammatory findings are identified in the abdomen or pelvis. 3. Marked bladder distention. 4. Patchy groundglass opacities are seen at the right lung base. Correlate clinically for evidence of a mild infectious/inflammatory pneumonitis. 5. Suspect emphysema, and findings suggest previous left-sided pulmonary resection. Clinical correlat ion will be required. 6. Circumferential wall thickening is seen in the distal esophagus. Correlate clinically for evidence of esophagitis. This can be further assessed with endoscopy if clinically warranted. 7. Permeative destructive change in the left lateral 9th rib is suspicious for osseous metastatic dis ease. Correlation with the patient's medical/oncological history will be required. 8. Additional findings as above. ACT 112: Negative or not required by law. Electronically signed by: Russell Ty M.D. 02/23/2021 8:45 AM
--- NOTE | 2021-02-23 08:48 | Procedure Note ---
Procedure Note Date of Service February 23, 2021 Note Procedure date: Noted above Procedure: Central venous access Pre-procedure indication: Poor vascular access need for blood administration Post-procedure Diagnosis: same as above Prior to Procedure: Informed Consent: The risks, benefits, indications, potential complications, and alternatives were explained to the patient's father and informed consent obtained. Attending Staff: Aubrey Sol DO Resident/APC: Delia Child Skin Prep: Chlorhexidine Anesthesia: 4 mL 1% lidocaine without epinephrine The identity of the patient was confirmed and a bedside time out was performed. Description of Procedure: After sterile prep and sterile drape utilizing standard sterile technique the superficial skin of the right subclavian area was anesthetized. The target vessel was identified and entered with an 18-gauge needle. Dark venous blood return was noted. A guidewire was inserted through the needle and into the vessel. The needle was withdrawn and a skin zeyad was made. A tissue dilator was advanced via Seldinger technique and removed. A triple lumen catheter was inserted via Seldinger technique and the guidewire removed. All ports eddi and flushed easily. A Biopatch was placed, and the catheter was secured via silk suture and a commercial securement device. A sterile dressing was then applied. Complications: None Estimated blood loss: Trace Patient tolerated the procedure well. Post procedure chest x-ray was reviewed no pneumothorax adequate position Coding CPT Codes Tubes, Drains, and Vasc Access - Tubes, Drains, and Vasc Access: [id number] Insertion Of Non-tunneled Catheter Age 5 Yrs> ([id number]) [facility] Procedure Codes (Charges) Tubes, Drains, and Vasc Access Procedure 1: Tubes, Drains, and Vasc Access: [id number] Insertion Of Non-tunneled Catheter Age 5 Yrs>
[2021-02-23] MEDS ORDERED: PANTOprazole 40 MG in SYRINGE 0 ML IV SCH (09:00)
--- NOTE | 2021-02-23 09:22 | Anesthesiology Consultation ---
Date of Service February 23, 2021 Assessment & Plan (1) Encounter for pre-operative examination: History Surgery Operation Date: 02/23/21 16:00 Proposed Procedures p Esophagogastroduodenoscopy Dr. Jacob James MD Height/Weight Height: 5 ft 8 in Weight: 68.8 kg Allergies Allergy/AdvReac Type Severity Reaction Status Date / Time bee venom protein (honey bee) Allergy Mild SWELLING Verified 02/12/21 01:06 AT SITE, SOB Penicillins Allergy Unknown "SINCE Verified 02/12/21 01:06 "-Amoxicillin blue dye Allergy Unknown Verified 02/12/21 01:06 cat dander Allergy Unknown Verified 02/12/21 01:06 Medications Home Medications Medication Instructions Recorded Confirmed Last Taken albuterol sulfate 90 mcg/actuation 2 puff INHALATION Q4H PRN 05/05/18 02/12/21 01/22/21 12:00 aerosol inhaler (Ventolin HFA) epinephrine 0.3 mg/0.3 mL 0.3 mg IM Q3H PRN 05/05/18 02/12/21 04/28/18 injection, auto-injector (EpiPen) insulin glargine 100 unit/mL (3 7 unit SUBCUT HS 05/05/18 02/12/21 01/21/21 mL) subcutaneous pen (Basaglar 7 units KwikPen U-100 Insulin) insulin lispro 100 unit/mL 1 sliding scale dose SUBCUT UD 05/05/18 02/12/21 01/21/21 22:30 subcutaneous cartridge (Humalog 5 units U-100 Insulin) multivitamin 1 tab PO QAM 05/05/18 02/12/21 01/21/21 pantoprazole 40 mg tablet,delayed 40 mg PO QAM 05/05/18 02/12/21 01/21/21 release (Protonix) clonidine 0.2 mg/24 hr weekly 1 patch TRANSDERMAL WK 01/23/20 02/12/21 01/28/21 transdermal patch (Wbfikdyh-OZP-4) escitalopram oxalate 10 mg tablet 10 mg PO QAM 01/24/20 02/12/21 01/21/21 (Lexapro) fluticasone 250 mcg-salmeterol 50 1 inh INHALATION BID 09/20/20 10/10/21 09/19/21 mcg/dose blistr powdr for inhalation (Wixela Inhub) amlodipine 5 mg tablet (Norvasc) 5 mg PO QAM #30 tab 01/29/20 02/12/21 01/21/21 levetiracetam 750 mg tablet 750 mg PO BID 30 Days #60 tab 01/29/20 02/12/21 01/21/21 (Keppra) cyclobenzaprine 5 mg tablet 5 mg PO TID PRN 12/20/20 02/12/21 12/19/20 ondansetron 8 mg disintegrating 8 mg PO Q8H PRN 12/20/20 02/12/21 01/22/21 12:00 tablet 8 mg morphine 30 mg tablet,extended 30 mg PO Q12H #10 tab 12/29/20 02/12/21 01/21/21 release (MS Contin) L.acidop,casei,lactis,rham-B.lact,jose 1 cap PO BID 01/22/21 02/12/21 01/21/21 625 mg (10 billion cell) capsule (Advanced Probiotic) gabapentin 100 mg capsule 100 mg PO TID 01/22/21 02/12/21 01/21/21 (Neurontin) magnesium oxide 400 mg (241.3 mg 400 mg PO BID 01/22/21 02/12/21 01/21/21 magnesium) tablet (MagOx) metoclopramide HCl 10 mg tablet 10 mg PO ACHS 01/22/21 02/12/21 01/21/21 (Reglan) oxycodone 5 mg tablet (Roxicodone) 5 mg PO Q4H PRN 01/22/21 02/12/21 01/21/21 23:00 5 mg sucralfate 1 gram tablet (Carafate) 1 g PO QID 01/22/21 02/12/21 01/20/21 Active Medications Generic Name Dose Route Start Last Admin Trade Name Freq PRN Reason Stop Dose Admin Amlodipine Besylate 5 mg 02/12/21 09:00 02/22/21 09:57 Amlodipine Besylate 5 Mg Tab PO 03/14/21 08:59 Not Given QAM DAIMR Clonidine HCl 1 patch 02/20/21 22:45 02/21/21 00:04 Clonidine Hcl 0.2 Mg/24 Hr Transderm Sys TD 03/22/21 22:44 1 patch Q7D@2100 DAMIR Administration Escitalopram Oxalate 5 mg 02/16/21 09:00 02/19/21 08:23 Escitalopram Oxalate 10 Mg Tab PO 03/18/21 08:59 5 mg QAM DAMIR Administration Fluticasone/Vilanterol 1 puffs 02/12/21 09:00 02/22/21 09:57 Fluticasone/Vilanterol 200/25mcg 14 Puffs/Inhaler INH 03/14/21 08:59 Not Given DAILY DAMIR Gabapentin 100 mg 02/16/21 21:00 02/19/21 08:24 Gabapentin 100 Mg Cap PO 03/18/21 20:59 100 mg BID DAMIR Administration Heparin Sodium (Porcine) 5,000 units 02/12/21 06:00 02/22/21 21:07 Heparin Sod 5,000 Unit/0.5 Ml Vial SQ 03/14/21 05:59 5,000 units Q8 DAMIR Administration Hydralazine HCl 10 mg 02/12/21 14:52 02/23/21 08:11 Hydralazine Hcl 20 Mg/Ml Vial IV 03/14/21 14:51 10 mg Q6H PRN Administration Hypertension Promethazine HCl 12.5 mg/ 50.5 mls @ 202 mls/hr 02/21/21 00:12 02/21/21 02:08 Sodium Chloride IV 03/23/21 00:11 Infused Q6H PRN Infusion Nausea And Vomiting Insulin Aspart 0 units 02/23/21 06:00 02/23/21 05:30 Insulin Aspart 100 Units/Ml 3 Ml Pen SC 03/25/21 05:59 2 units Q6 DAMIR Administration Insulin Glargine 7 units 02/14/21 17:00 02/22/21 20:53 Insulin Glargine Solostar 100 Units/Ml 3 Ml Pen SQ 03/16/21 16:59 7 units HS DAMIR Administration Labetalol HCl 5 mg 02/12/21 14:51 02/20/21 20:11 Labetalol Hcl Iv 5 Mg/Ml 20ml IV 03/14/21 14:50 5 mg Q6H PRN Administration Hypertension Lactobacillus Acidoph/Casei/Rhamnos 1 cap 02/12/21 09:00 02/22/21 20:47 Advanced Probiotic 1250 Mg Capsule PO 03/14/21 08:59 1 cap BID DAMIR Administration Levetiracetam 500 mg 02/16/21 09:00 02/19/21 08:25 Levetiracetam 500 Mg Tab PO 03/18/21 08:59 500 mg BID DAMIR Administration Metoclopramide HCl 5 mg 02/21/21 18:00 02/23/21 01:00 Metoclopramide Hcl Inj 5 Mg/Ml 2 Ml Vial IV 03/23/21 17:59 5 mg Q8H DAMIR Administration Miscellaneous 15 - 30 gm 02/12/21 03:04 02/14/21 20:29 Carbohydrates For Hypoglycemia PO 03/14/21 03:03 15 gm UD PRN Administration Hypoglycemia Protocol Miscellaneous 1 ea 02/20/21 22:45 02/21/21 00:03 Remove Clonidine Patch N/A 03/22/21 22:44 1 ea Q7D@2058 DAMIR Administration Miscellaneous 1 ea 02/21/21 08:00 02/23/21 08:09 Check Clonidine Patch Placement N/A 03/23/21 07:59 1 ea QS DAMIR Administration Morphine Sulfate 5 mg 02/18/21 11:30 02/19/21 10:05 Morphine Sulfate 5 Mg/0.25 Ml Udp PO 03/04/21 11:29 5 mg BID DAMIR Administration Multivitamins 1 tab 02/12/21 09:00 02/22/21 09:57 Multivitamin Tab PO 03/14/21 08:59 Not Given QAM DAMIR Sucralfate 1 gm 02/12/21 07:30 02/22/21 20:47 Sucralfate 1 Gm Tab PO 03/14/21 07:29 1 gm ACHS DAMIR Administration Past Medical History Medical History Acute dyspnea Anemia Chest pain No current chest pain...related to reflux per patient Chronic pain CKD (chronic kidney disease) stage 4, GFR 15-29 ml/min baseline creatinine 3 in fall 2020 w/ 1 gm proteinuria COPD (chronic obstructive pulmonary disease) Diabetes mellitus type 2, uncontrolled Diabetic autonomic neuropathy Diabetic peripheral neuropathy Discharge planning issues DVT prophylaxis Elevated d-dimer Gastroparesis "s/p gastric stimulator" Hypertension Hypomagnesemia Intractable nausea and vomiting Lung cancer "dx 01/2016; adenoCa SHAWN; + hilar nodes; s/p left upper lobectomy + chemo" On 08/05/16 16:31 Edie Mcfarland wrote "dx 01/2016; s/p L side lobectomy; currently undergoing chemo" Nausea and vomiting Opiate dependence Orthostatic hypotension Pneumonia Presence of gastric pacemaker Seizure disorder SOB (shortness of breath) Past Family History Family History Other Family history non-contributory Past Surgical History Surgical History H/O colonoscopy " 04/22/2013- Mildly congested and erythematous mucosa in the ascending colon. One 1 mm polyp in the ascending colon resected. One benign appearing 1 mm polyp in the rectum resected. Internal hemorrhoids; Dr. Demarco" H/O esophagogastroduodenoscopy "01/26/2015- [place] Grade B reflux esophagitis, gastritis; Dr. Major" History of cholecystectomy History of tonsillectomy and adenoidectomy Hx of total knee arthroplasty S/P lobectomy of lung "left upper lobectomy for adenoCa" On 08/05/16 16:30 Edie Mcfarland wrote "L side @ [facility] 05/25/16" Status post insertion of intrathecal pump explanted Social History Smoking Status: Former smoker tobacco type: cigars Hx Alcohol Use: No Alcohol type: beer alcohol intake frequency: holidays/special occasions only Hx Substance Use: Yes substance use type: prescription drug Substance Use Type Other:: Currenlty denies Last Used Substance: Just Prior to Arrival Last Used Substance Other:: Four hours ago Physical Exam Vital Signs Last Vital Signs Temp 36.8 C 02/23/21 08:22 Pulse 96 H 02/23/21 08:22 Resp 18 02/23/21 08:22 BP 161/74 H 02/23/21 08:22 Pulse Ox 95 02/23/21 08:22 Testing Laboratory Results 02/23/21 01:46 02/23/21 01:46 PT 10.6 Seconds (9.0-12.0) 02/23/21 01:46 INR 1.0 (0.9-1.1) 02/23/21 01:46 Urine Color Yellow 02/21/21 03:26 Urine Appearance Clear (Clear) 02/21/21 03:26 Urine pH 5.5 (4.5-7.5) 02/21/21 03:26 Ur Specific [place] 1.012 (1.000-1.030) 02/21/21 03:26 Urine Protein 3+ (Negative) H 02/21/21 03:26 Urine Glucose (UA) Trace (Negative) H 02/21/21 03:26 Urine Ketones Trace (Negative) H 02/21/21 03:26 Urine Nitrite Negative (Negative) 02/21/21 03:26 Ur Leukocyte Esterase Negative (Negative) 02/21/21 03:26 Urine WBC (Auto) 1-5 /hpf (0-5) 02/21/21 03:26 Urine RBC (Auto) 0-4 /hpf (0-4) 02/21/21 03:26 U Hyaline Cast (Auto) 1-5 /lpf (0-5) 02/21/21 03:26 U Epithel Cells (Auto) 5-10 /lpf (0-5) H 02/21/21 03:26 Urine Bacteria (Auto) Negative (Negative) 02/21/21 03:26 Blood Type O Positive 02/23/21 01:46 Antibody Screen NEGATIVE 02/23/21 01:46 02/16/21 08:18 Aerobic Blood Culture - Final Blood No growth in Aerobic bottle after 5 days. Anaerobic Blood Culture - Final No growth in Anaerobic bottle after 5 days. 02/16/21 08:06 Aerobic Blood Culture - Final Blood No growth in Aerobic bottle after 5 days. Anaerobic Blood Culture - Final No growth in Anaerobic bottle after 5 days. 02/12/21 Unknown Urine Culture - Final Urine,Clean Catch More than three types of organisms present, all low counts mixed probable skin miesha. No further identifications or sensitivities to follow. 02/23/21 02/23/21 07:36 05:26 POC Glucose 209 H 231 H Electrocardiogram Date: 02/16/21 Sinus rhythm with Premature atrial complexes Cannot rule out Septal infarct Abnormal ECG When compared with ECG of 11-FEB-2021 22:13, Premature atrial complexes are now Present Questionable change in initial forces of Anterior leads Non-specific change in ST segment in Inferior leads T wave amplitude has decreased in Anterolateral leads Confirmed by Chris Duke ([id number]) on 02/16/2021 10:31:14 PM Echocardiogram Date: 01/24/20 EF: 55-60% grade 1 diastolic dysfunction.
[2021-02-23] MEDS: MULTIVITAMIN TAB PO SCH (09:39)
[2021-02-23] MEDS: ADVANCED PROBIOTIC 1250 MG CAPSULE PO SCH ×2 (09:39→21:26)
[2021-02-23] MEDS: amLODIPine BESYLATE 5 MG TAB PO SCH (09:39)
[2021-02-23] MEDS: FLUTICASONE/VILANTEROL 200/25MCG 14 PUFFS/INHALER INH SCH (09:39)
[2021-02-23] MEDS: SUCRALFATE 1 GM TAB PO SCH ×3 (09:39→18:02)
--- NOTE | 2021-02-23 09:44 | Nephrology Progress Note ---
Date of Service February 23, 2021 Assessment & Plan Admission and Anticipated Discharge Date Admission Date: February 14, 2021 Subjective Subjective Assessment & Plan (1) Acute on chronic renal failure: Plan: Slight IVAN stage but this is mainly rapidly progressive CKD, now stage 4 w/ underlying 1 gm daily albuminuria at least. Creat has been going up steadily last 1 year and is most likely from his long standing Uncontrolled DM. Chemistries and volume status acceptable. Baseline urine c/w chronic inflammation such as nephropathy or GN or chronic interstitial nephritis. He has 4 g proteinuria here (previously in the 1 to 2 g daily range); -defer to primary service to titrate down opiate and gabapentin doses metabolites of which can accumulate in renal failure and cause altered mentation -daily bmp -d/c iv fluid now. Starting to have some fluid overload. We talked about his potential need for dialysis and he is open to this if the need arises. Does not need now but very likely will need within next 6 month to 1 year. -will absolutely need close renal f/u after d/c, possibly in [place]. He lives alone and does have issues with f/u and transport etc --creat seems to be stable in the mid to high 3's--new baseline for him 2 HTN--_did check his Standing BP and it was only 118 systolic. The very labile pattern of his HTN is very classic for Diabetic neuropathy . need to check his standing BP before giving PRN meds. if not possible i would rather ignore rather than overtreat and cause problem. There is no good solution to this issue. High likelihood of Orthostatic Hypotension from Diabetic neuropathy. 3 Anemia--Now has GI bleed hgb dropped to <7 and getting PRBC and EGD today Subjective resting quietly; denies worsening sob, uncontrolled pain, n/v, poor po intake, voiding concerns +. Also GI bleed now. Review of Systems Review of Systems: All systems reviewed & are unremarkable except as noted in Subjective Physical Exam Constitutional: + ill appearing and + frail appearing no acute distress Eyes: EOM intact bilaterally ENMT: Ears: no external ear abnormality Nose: no external nose abnormality Mouth: + dry oral mucous membranes Neck: no nuchal rigidity Respiratory: normal respiratory effort and + cough (occasional) Auscultation: + diminished lung sounds Cardiovascular: Rate/Rhythm: regular rate and regular rhythm Extremities: + edema (Left ankle) Gastrointestinal (Abdomen): Inspection/Auscultation: normal bowel sounds Percussion/Palpation: abdomen soft; abdomen nontender Musculoskeletal: Extremities: + abnormal strength (as above w/ general appearance) Skin: no rashes, warm and dry Psychiatric: Orientation: oriented x 3 and cooperative Eye Contact: good eye contact Insight: good insight Labs=creat in the low to mid 3's stable. Hgb dropped to < 7. Results & Data ([facility]) Vital Signs (Past 12 Hours) Vital Signs Temp Pulse Pulse Resp BP BP BP 02/23/21 09:34 97 H 20 118/63 02/23/21 09:07 37.4 C 95 H 18 124/75 02/23/21 08:37 36.8 C 97 H 20 118/63 02/23/21 08:22 36.8 C 96 H 18 161/74 H 02/23/21 08:06 36.9 C 92 H 18 201/101 H 02/23/21 08:00 93 H 02/23/21 07:56 36.8 C 91 H 18 195/79 H 02/23/21 04:05 36.8 C 96 H 16 184/92 H 02/22/21 23:08 36.7 C 97 H 20 164/85 H Pulse Ox 02/23/21 09:34 02/23/21 09:07 02/23/21 08:37 96 02/23/21 08:22 95 02/23/21 08:06 97 02/23/21 08:00 02/23/21 07:56 98 02/23/21 04:05 99 02/22/21 23:08 97
--- NOTE | 2021-02-23 09:53 | Gastroenterology Progress Note ---
Date of Service February 23, 2021 Assessment & Plan (1) Gastroparesis: (2) Anemia: (3) Melena: Plan: Pt is a 55 y/o male w hx of gastroparesis, LA grade C esophagitis seen on previous EGDs (last done 01/2021), re-evaluated for anemia, and reports of black loose stools. - NPO - PPI bolus and gtt - Monitor blood ct and repeat transfusion prn - EGD eval today by Dr. James - GI recs after EGD completed Admission and Anticipated Discharge Date Admission Date: February 14, 2021 Subjective GI asked to re-eval pt as his blood ct dropped to 6.9 last night and he was having black stools. Pt appears fatigued on exam. He denies CP, SOB, abd pain, n/v. He is getting 1U PRBC this AM. Had trouble with IV access last night, triple lumen placed. Review of Systems Review of Systems: All systems reviewed & are unremarkable except as noted in HPI & below Physical Exam Constitutional: WD/WN, vitals as above + frail appearing, well groomed, cooperative and comfortable Eyes: PERRL, conjunctivae normal, anicteric sclerae ENMT: external ear and nose normal, oropharynx normal Respiratory: normal respiratory effort, lungs clear to auscultation Cardiovascular: RRR, no murmur, no edema Gastrointestinal (Abdomen): normal bowel sounds, soft, nontender, no hepatosplenomegaly Skin: no rashes, warm and dry no jaundice Psychiatric: Lethargic, oriented to self, place mostly, time on prompt Lymphatic: no lymphedema Results & Data ([facility]) Vital Signs (Past 12 Hours) Vital Signs Temp Pulse Pulse Resp BP BP BP 02/23/21 09:34 97 H 20 118/63 02/23/21 09:07 37.4 C 95 H 18 124/75 02/23/21 08:37 36.8 C 97 H 20 118/63 02/23/21 08:22 36.8 C 96 H 18 161/74 H 02/23/21 08:06 36.9 C 92 H 18 201/101 H 02/23/21 08:00 93 H 02/23/21 07:56 36.8 C 91 H 18 195/79 H 02/23/21 04:05 36.8 C 96 H 16 184/92 H 02/22/21 23:08 36.7 C 97 H 20 164/85 H Pulse Ox 02/23/21 09:34 02/23/21 09:07 02/23/21 08:37 96 02/23/21 08:22 95 02/23/21 08:06 97 02/23/21 08:00 02/23/21 07:56 98 02/23/21 04:05 99 02/22/21 23:08 97
[2021-02-23] MEDS: PANTOprazole 40 MG in DEXTROSE 5% 100 ML IV SCH ×4 (10:03→21:23)
--- NOTE | 2021-02-23 10:44 | History & Physical Report ---
Date of Service February 23, 2021 Assessment & Plan Admission and Anticipated Discharge Date Admission Date: February 14, 2021 History of Present Illness Chief Complaint: Reported melena and drop in hgb Primary Care Provider: Juan Lamb MD 55 yo male who has been hospitalized, GI consulted again for dark stool and drop in hgb. Receiving blood this am. S/p central line in right upper chest yesterday. No overt bleeding or hematochezia. Last EGD in 01/24 with grade c esophagitis. No other acute complaints. Allergies Allergy/AdvReac Type Severity Reaction Status Date / Time bee venom protein (honey bee) Allergy Mild SWELLING Verified 02/12/21 01:06 AT SITE, SOB Penicillins Allergy Unknown "SINCE Verified 02/12/21 01:06 "-Amoxicillin blue dye Allergy Unknown Verified 02/12/21 01:06 cat dander Allergy Unknown Verified 02/12/21 01:06 Home Medications Medication Instructions Recorded Confirmed Type albuterol sulfate 90 mcg/actuation 2 puff INHALATION Q4H PRN 05/05/18 02/12/21 History aerosol inhaler (Ventolin HFA) epinephrine 0.3 mg/0.3 mL 0.3 mg IM Q3H PRN 05/05/18 02/12/21 History injection, auto-injector (EpiPen) insulin glargine 100 unit/mL (3 7 unit SUBCUT HS 05/05/18 02/12/21 History mL) subcutaneous pen (Basaglar KwikPen U-100 Insulin) insulin lispro 100 unit/mL 1 sliding scale dose SUBCUT UD 05/05/18 02/12/21 History subcutaneous cartridge (Humalog U-100 Insulin) multivitamin 1 tab PO QAM 05/05/18 02/12/21 History pantoprazole 40 mg tablet,delayed 40 mg PO QAM 05/05/18 02/12/21 History release (Protonix) clonidine 0.2 mg/24 hr weekly 1 patch TRANSDERMAL WK 01/23/20 02/12/21 History transdermal patch (Nmtkdjjj-NSK-3) escitalopram oxalate 10 mg tablet 10 mg PO QAM 01/24/20 02/12/21 History (Lexapro) fluticasone 250 mcg-salmeterol 50 1 inh INHALATION BID 01/24/20 02/12/21 History mcg/dose blistr powdr for inhalation (Wixela Inhub) amlodipine 5 mg tablet (Norvasc) 5 mg PO QAM #30 tab 01/29/20 02/12/21 Rx levetiracetam 750 mg tablet 750 mg PO BID 30 Days #60 tab 01/29/20 02/12/21 Rx (Keppra) cyclobenzaprine 5 mg tablet 5 mg PO TID PRN 12/20/20 02/12/21 History ondansetron 8 mg disintegrating 8 mg PO Q8H PRN 12/20/20 02/12/21 History tablet morphine 30 mg tablet,extended 30 mg PO Q12H #10 tab 12/29/20 02/12/21 Rx release (MS Contin) L.acidop,casei,lactis,rham-B.lact,jose 1 cap PO BID 01/22/21 02/12/21 History 625 mg (10 billion cell) capsule (Advanced Probiotic) gabapentin 100 mg capsule 100 mg PO TID 01/22/21 02/12/21 History (Neurontin) magnesium oxide 400 mg (241.3 mg 400 mg PO BID 01/22/21 02/12/21 History magnesium) tablet (MagOx) metoclopramide HCl 10 mg tablet 10 mg PO ACHS 01/22/21 02/12/21 History (Reglan) oxycodone 5 mg tablet (Roxicodone) 5 mg PO Q4H PRN 01/22/21 02/12/21 History sucralfate 1 gram tablet (Carafate) 1 g PO QID 01/22/21 02/12/21 History Past Med/Surg History Medical History Acute dyspnea Anemia Chest pain No current chest pain...related to reflux per patient Chronic pain CKD (chronic kidney disease) stage 4, GFR 15-29 ml/min baseline creatinine 3 in fall 2020 w/ 1 gm proteinuria COPD (chronic obstructive pulmonary disease) Diabetes mellitus type 2, uncontrolled Diabetic autonomic neuropathy Diabetic peripheral neuropathy Discharge planning issues DVT prophylaxis Elevated d-dimer Gastroparesis "s/p gastric stimulator" Hypertension Hypomagnesemia Intractable nausea and vomiting 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 One 1 mm polyp in the ascending colon resected. One benign appearing 1 mm polyp in the rectum resected. Internal hemorrhoids; Dr. Demarco" H/O esophagogastroduodenoscopy "01/26/2015- LA Grade B reflux esophagitis, gastritis; Dr. Major" History of cholecystectomy History of tonsillectomy and adenoidectomy Hx of total knee arthroplasty S/P lobectomy of lung "left upper lobectomy for adenoCa" On 08/05/16 16:30 Edie Mcfarland wrote "L side @ [facility] 05/25/16" Status post insertion of intrathecal pump explanted Family History Other Family history non-contributory Social History Smoking Status: Former smoker Tobacco Type: Cigarettes Second Hand Exposure: No; Hx Alcohol Use: No Hx Substance Use: Yes Last Used Substance: Just Prior to Arrival Last Used Substance Other:: Four hours ago Substance Use Type Other:: Currenlty denies Preferred Language: Korean Communication Ability: Effective Consultant Technology Required: No Beliefs That Will Affect Care: Druze Druze Beliefs: ORTHODOX marital status: Single Current Living Situation: Alone How many Children do You have: 5 Other Information That Helps Us Care for You: No Feels Safe at Home: Yes Safety Concerns: Feels Safe At This Time Assistive Devices: Walker Assistive Devices Comment: WALKER` Review of Systems All systems reviewed & are unremarkable except as noted in HPI & below Physical Exam Physical Exam: Elderly pale male in nad Eyes: PERRL, conjunctivae normal, anicteric sclerae Gastrointestinal (Abdomen): Soft abdomen Skin: Pale appearing, right upper chest central line Results & Data ([facility]) Vital Signs (Past 12 Hours) Vital Signs Temp Pulse Pulse Resp BP BP BP 10/21/21 10:36 36.7 C 89 18 177/96 H 02/23/21 10:32 36.5 C 98 H 20 187/78 H 02/23/21 10:07 36.5 C 105 H 18 182/87 H 02/23/21 09:34 97 H 20 118/63 02/23/21 09:07 37.4 C 95 H 18 124/75 02/23/21 08:37 36.8 C 97 H 20 118/63 02/23/21 08:22 36.8 C 96 H 18 161/74 H 02/23/21 08:06 36.9 C 92 H 18 201/101 H 02/23/21 08:00 93 H 02/23/21 07:56 36.8 C 91 H 18 195/79 H 02/23/21 04:05 36.8 C 96 H 16 184/92 H 02/22/21 23:08 36.7 C 97 H 20 164/85 H Pulse Ox 02/23/21 10:36 98 02/23/21 10:32 02/23/21 10:07 95 02/23/21 09:34 02/23/21 09:07 02/23/21 08:37 96 02/23/21 08:22 95 02/23/21 08:06 97 02/23/21 08:00 02/23/21 07:56 98 02/23/21 04:05 99 02/22/21 23:08 97 Code Status & VTE Plan VTE Prophylaxis Plan VTE Prophylaxis will be ordered: Yes Supervising Physician Co-Signing Physician Notes EGD for evaluation of melena and anemia.
--- NOTE | 2021-02-23 10:56 | Pharmacy Report ---
Pharmacy Glycemic Short Note 2 - Date of Service February 23, 2021 - Glycemic Short BSG Results (Last 24 hours): 02/22/21 02/22/21 02/22/21 11:19 16:40 20:27 Glucose POC Glucose 239 H 228 H 227 H 02/23/21 02/23/21 02/23/21 01:46 05:26 07:36 Glucose 207 H POC Glucose 231 H 209 H OUTPATIENT ANTIDIABETIC REGIMEN: * Basaglar 7 units HS * Humalog per scale ASSESSMENT: 02/23 * BSGs continue to remain slightly elevated despite changes made yesterday. Concern to increase insulin any further since patient has a history of lows and BSG swings with only adding 1-2 more units. Will tighten CF again which will give extra novolog q 4hrs. Will repeat Lantus dose increase from yesterday to prevent BSGs from increasing any further. * Extremely tight glycemic control not indicated for this patient given co- morbidities and brittle DM with hx of Lows. OK with BSGs in the 140-250 mg/dl range. 02/22 * BSGs all elevated yesterday- may be a response form increased pain. BSGs still high this morning. Will tighten CF and give a one time extra dose of Lantus 2 units to cover sustained hyperglycemia. Conservative changes since pt with hx of large BSG swings with doses of insulin above ~10 units. 02/21 * Pt has received 9 units of insulin over the past 24hrs * 7 units of basal with Lantus * 2 units of bolus with NovoLog * BSGs well controlled yesterday. Low CHO intake therefore regimen is weighted towards basal insulin. BSGs are running high today but hesitant to make any changes since this regimen has worked well for him. PO intake remains low- will not make any changes today and re-evaluate tomorrow. 02/19/21 * Patient's BSGs yesterday were [phone] mg/dL and fasting today is 147 mg/dL. * Patient received 17 units of insulin yesterday (7 units of basal and 10 units of bolus). * Will continue with Lantus 7 units nightly as this has proven effective in the past. * Continue Novolog but will increase goal range as patient's BSGs have corrected lower than desired. 02/17/21 * Patient's BSGs yesterday were [phone] mg/dL and fasting today is 202 mg/dL. * Patient received 12 units of insulin yesterday (7 units of basal and 5 units of bolus). * Will continue with Lantus 7 units nightly as this has proven effective in the past. * Continue Novolog. 02/15/21 * Patient's BSGs yesterday were [phone] mg/dL and fasting today is 98 mg/dL. * Patient received 24 units of insulin yesterday (7 units of basal and 17 units of bolus). * Will continue with Lantus 7 units nightly as this has proven effective in the past. * Loosen CF due to hypoglycemia at bedtime. Background * Mr Hamilton is a 55 y/o M with a PMH of T1DM who presents with hypertensive urgency and N/V. Pharmacy consulted on day 3 of hospitalization. * Patient received 15 units of insulin yesterday (5 units of basal and 10 units of bolus). BSGs [phone] mg/dL. Fasting today 327 mg/dL. * Lunch BSG 57 mg/dL due to overcorrection at breakfast. * Start lantus 7 units--- patient basal deficient and reason for hyperglycemia at breakfast. Give slightly earlier at dinnertime. * Loosen Novolog to parameters that were previously affective. PLAN FOR INPATIENT GLYCEMIC CONTROL: * Basal insulin * Lantus 7 units SQ HS * Additional one time dose of Lantus 2 units this AM for sustained 24 hrs hyperglycemia. * Bolus insulin * NovoLog per scale ACHS or Q6hrs while NPO * Goal Range: Low 120 mg/dL - High 160 mg/dL * Correction Factor: 35 mg/dL/unit (tighten from 40) * Nutritional / Prandial insulin per carb ratio of 1 unit per 18 grams CHO consumed PLAN FOR DISCHARGE: * Continue to follow-up with outpatient provider for in-depth insulin adjustments.
--- NOTE | 2021-02-23 11:11 | GI REPORT ---
Patient Name: Jeff Hamilton Procedure Date: 02/23/2021 10:37 AM Date of : 1965 Admit Type: Inpatient Age: 55 Gender: Male Attending MD: Malia James M.d. Procedure: Upper GI endoscopy Providers: Malia James M.d. Referring MD: SILKE SIMS Indications: Melena Medicines: Anesthesia Complications: No immediate complications. Estimated Blood Loss: Estimated blood loss: none. Procedure: Pre-Anesthesia Assessment: - Patient identification and proposed procedure were verified prior to the procedure by the physician, the nurse and the anesthesiologist. The procedure was verified in the pre-procedure area. - Prior to the procedure, a History and Physical was performed, and patient medications, allergies and sensitivities were reviewed. The patient's tolerance of previous anesthesia was reviewed. - The risks and benefits of the procedure and the sedation options and risks were discussed with the patient. All questions were answered and informed consent was obtained. After obtaining informed consent, the endoscope was passed under direct vision. Throughout the procedure, the patient's blood pressure, pulse, and oxygen saturations were monitored continuously. The Endoscope was introduced through the mouth, and advanced to the second part of duodenum. The upper GI endoscopy was accomplished without difficulty. The patient tolerated the procedure well. Findings: The examined esophagus appeared normal. LA Grade D (one or more mucosal breaks involving at least 75% of esophageal circumference) esophagitis with faint evidence of bleeding was found. Superficial distal esophageal ulceration was noted in the distal esophagus. Retained fluid with hematin was found in the examined stomach and suctioned without evidence of ulceration or inflammation in the examined stomach. The duodenal bulb and second portion of the duodenum appeared normal without evidence of ulceration or inflammation in the examined duodenum. Impression: - Normal esophagus. - LA Grade D esophagitis. - Distal esophageal ulcers that appeared clean based but a few with erythema. - Retained fluid with hematin in the examined stomach. - Normal duodenal bulb and second portion of the duodenum. Recommendation: - Return to floor. - IV PPI drip for 24-48 hours. - If no further bleeding today, consider clear liquids later today. - Avoid NSAID's. Olga James M.d. 02/23/2021 11:10:43 AM This report has been signed electronically. Note Initiated On: 02/23/2021 10:37 AM Number of Addenda: 0 I attest to the content of the Intraoperative Record and orders documented therein, exceptions below {[id number]}
[2021-02-23] MEDS ORDERED: PROPOFOL IV EMULSION 10 MG/ML 20 ML VIAL IV ONE (11:15)
[2021-02-23] MEDS ORDERED: LIDOCAINE 2% 2 ML VIAL/AMP(20MG/ML) INFIL ONE (11:15)
[2021-02-23] MEDS ORDERED: HEPARIN 100 UNIT/ML 5ML FLUSH ONE (11:24)
[2021-02-23] MEDS ORDERED: INSULIN GLARGINE SOLOSTAR 100 UNITS/ML 3 ML PEN SQ ONE (12:00)
[2021-02-23 13:07] LABS: Hematocrit (blood only) 20.5 % (42-52); Hemoglobin 6.8 g/dL (14.0-18.0); Mean Corpuscular Hemoglobin 28.9 pg (25-34); Mean Corpuscular Hgb Conc 33.2 g/dL (32-36); Mean Corpuscular Volume 87.2 fL (80-100); Mean Platelet Volume 9.7 fL (7.4-10.4); Platelet Count 237 K/uL (130-400); RDW Coefficient of Variation 14.1 % (11.5-14.5); RDW Standard Deviation 44.8 fL (36.4-46.3); Red Blood Count 2.35 M/uL (4.7-6.1); White Blood Count 4.76 K/uL (4.8-10.8)
[2021-02-23 13:08] LABS: Basophils # (auto) 0.01 K/uL (0-0.2); Basophils % (auto) 0.2 %; Eosinophils % (auto) 4.2 %; Immature Granulocytes # (auto) 0.04 K/uL (0.00-0.02); Immature Granulocytes % (auto) 0.8 %; Lymphocytes # (auto) 1.11 K/uL (1.2-3.4); Lymphocytes % (auto) 23.3 %; Monocytes # (auto) 0.53 K/uL (0.11-0.59); Monocytes % (auto) 11.1 %; Neutrophils # (auto) 2.87 K/uL (1.4-6.5); Neutrophils % (auto) 60.4 %
--- NOTE | 2021-02-23 13:37 | Anesthesiology Progress Note ---
Date of Service February 23, 2021 Anesthesia Post Procedure Vital Signs Vital Signs: Temp Pulse Pulse Resp BP BP BP 02/23/21 11:41 80 16 142/76 H 02/23/21 11:25 79 16 118/68 02/23/21 11:10 73 16 100/57 L 02/23/21 10:36 36.7 C 89 18 177/96 H 02/23/21 10:32 36.5 C 98 H 20 187/78 H 02/23/21 10:07 36.5 C 105 H 18 182/87 H 02/23/21 09:34 97 H 20 118/63 02/23/21 09:07 37.4 C 95 H 18 124/75 02/23/21 08:37 36.8 C 97 H 20 118/63 02/23/21 08:22 36.8 C 96 H 18 161/74 H 02/23/21 08:06 36.9 C 92 H 18 201/101 H 02/23/21 08:00 93 H 02/23/21 07:56 36.8 C 91 H 18 195/79 H 02/23/21 04:05 36.8 C 96 H 16 184/92 H 02/22/21 23:08 36.7 C 97 H 20 164/85 H 02/22/21 21:16 88 173/80 H 02/22/21 20:00 95 H 02/22/21 19:39 36.5 C 107 H 18 167/89 H 02/22/21 16:00 93 H 02/22/21 15:30 36.8 C 61 18 154/89 H Pulse Ox 02/23/21 11:41 99 02/23/21 11:25 98 02/23/21 11:10 100 02/23/21 10:36 98 02/23/21 10:32 02/23/21 10:07 95 02/23/21 09:34 02/23/21 09:07 02/23/21 08:37 96 02/23/21 08:22 95 02/23/21 08:06 97 02/23/21 08:00 02/23/21 07:56 98 02/23/21 04:05 99 02/22/21 23:08 97 02/22/21 21:16 02/22/21 20:00 02/22/21 19:39 99 02/22/21 16:00 02/22/21 15:30 94 Pain Intensity Abdomen: Pain Intensity: 7 Transfer of Care Handoff Completed per policy Notes Mental Status: alert / awake / arousable and participated in evaluation Patient Amnestic to Procedure: Yes Nausea / Vomiting: adequately controlled Pain: adequately controlled Airway Patency, RR, SpO2: stable & adequate BP & HR: stable & adequate Hydration State: stable & adequate Anesthetic Complications: no major complications apparent and Pt Satisfied with anesthetic care
--- NOTE | 2021-02-23 14:09 | Hospitalist Progress Note ---
Date of Service February 23, 2021 Assessment & Plan (1) Gastroparesis: (2) Nausea & vomiting: (3) Acute on chronic renal failure: (4) Somnolence: Plan: 55-year-old male with NSCC of lung stage III s/p surgery and incomplete chemo secondary to intolerance, COPD, ulcerative colitis, type I DM with complication [gastroparesis, PDN], chronic pain on narcotics, HTN, past tobacco abuse, CKD [baseline around 2.5-3], chronic anemia and seizure disorder came in 02/12 with chief complaint of abdominal pain associated with nausea and vomiting. Is being managed for the following: #. Nausea and vomiting: Secondary to worsening gastroparesis and severe esophagitis complicated by increased pain medication requirement. H/o gastroparesis,and gastric pacemaker. Also on narcotics for chronic pain. Presented with nausea, vomiting and diarrhea Per patient, he recently visited his motilitist in [facility] and his gastric pacer was tweaked. GI consulted: Increase the Reglan dose to 3 times daily. Per patient, patient is scheduled for upper scope and possible dilation in [facility] on February 22. CT abd/pelvis showed no acute infectious or inflammatory findings are identified in the abdomen or pelvis. #. anemia: Acute blood loss anemia Positive FOBT Hemoglobin dropped to 6.9 today Transfused 1 unit PRBC Repeat H/H showed 6.8 S/P EGD show normal esophagus. Distal esophageal ulcer that appeared clean based but a few with erythema If no further bleeding, consider clear liquid diet Continue monitor H/H Aspiration Pneumonia Hypoxic Respiratory Failure CT showed patchy groundglass opacities are seen at the right lung base. -- off Bipap, off oxygen -- blood cultures and urine cx negative -- Completed the course of abx with Cefepime + Clindamycin -- Saturated well on RA #. IVAN over Chronic kidney disease stage III: His baseline creatinine used to be 2.5-3 according to his recent labs, Creatinine peaked to 4, creatinine continue to improve to 3.2 Nephrology on board Continue monitor BPM #. Hypertensive urgency: Presented with blood pressure of 164/94 Patient reports that he has always had high blood pressure Blood pressure currently fairly under control continue with home meds Use as needed IV medications per protocol. Follow-up with PCP for reevaluation and dose adjustment as appropriate upon discharge --BP elevated today, unable to take p.o. amlodipine Hydralazine as needed ordered # Altered mental status Toxic metabolic encephalopathy Likely secondary to narcotic in the setting of acute renal failure --Patient's usual MS Contin, oxycodone, gabapentin, Lexapro, Keppra renally dosed However patient continued to be drowsy Bottle of oxycodone found in patient's back, but patient denies using this well admitted --Currently, MS Contin, oxycodone, gabapentin, Lexapro on hold Psych, pain management, neurologist consulted Follow recommendations regarding restarting above meds carefully Mental status improved case discussed with neuro and recommended no need to get EEG and MRI since mental status improves #. Type 1 diabetes: His recent HbA1c was 7.4%. Continue his long-acting insulin sliding scale. consulted pharmacy glycemic control consult #. Non-small cell lung cancer, stage III, status post surgery, incomplete chemotherapy secondary to tolerance. Needs to follow up with PCP and oncologist. Patient aware. #. History of seizure disorder, --Usually on Keppra BID #. Chronic pain: pain meds on hold due to drowsiness, refer to above #. Depression: Lexapro held due to drowsiness, refer to above #. History of chronic obstructive pulmonary disease: Continue home inhalers. DVT prophylaxis: Heparin SQ Position Lives at home Pending PT and OT evaluation Admission and Anticipated Discharge Date Admission Date: February 14, 2021 Subjective Pt was seen and examined for follow up anemia Lying in bed with no acute distress Pt is more awake today and able to follow commands He said that he had a rough night because they were trying to place an access on him Hgb was 6.9 and received 1 unit of blood today Denies any chest pain, palpitation, dizziness and SOB Review of Systems Review of Systems: All systems reviewed & are unremarkable except as noted in Subjective Physical Exam Physical Exam: General- No acute distress Head- atraumatic Eyes- PERRL, EOMI, ENT- oropharynx clear Neck- supple, no JVD Lungs- clear to auscultation Heart- regular rhythm; no murmur Abdomen- normal bowel sounds, soft, nontender Extremities- no calf tenderness Neuro- alert, oriented,; PERRL, EOMI; no facial palsy; no dysarthria Skin- warm & dry Results & Data Results & Data ([facility]) Vital Signs (Past 12 Hours) Vital Signs Temp Pulse Pulse Resp BP BP BP 02/23/21 11:41 80 16 142/76 H 02/23/21 11:25 79 16 118/68 02/23/21 11:10 73 16 100/57 L 02/23/21 10:36 36.7 C 89 18 177/96 H 02/23/21 10:32 36.5 C 98 H 20 187/78 H 02/23/21 10:07 36.5 C 105 H 18 182/87 H 02/23/21 09:34 97 H 20 118/63 02/23/21 09:07 37.4 C 95 H 18 124/75 02/23/21 08:37 36.8 C 97 H 20 118/63 02/23/21 08:22 36.8 C 96 H 18 161/74 H 02/23/21 08:06 36.9 C 92 H 18 201/101 H 02/23/21 08:00 93 H 02/23/21 07:56 36.8 C 91 H 18 195/79 H 02/23/21 04:05 36.8 C 96 H 16 184/92 H Pulse Ox 02/23/21 11:41 99 02/23/21 11:25 98 02/23/21 11:10 100 02/23/21 10:36 98 02/23/21 10:32 02/23/21 10:07 95 02/23/21 09:34 02/23/21 09:07 02/23/21 08:37 96 02/23/21 08:22 95 02/23/21 08:06 97 02/23/21 08:00 02/23/21 07:56 98 02/23/21 04:05 99 (1) Nausea & vomiting Vomiting Intractability: non-intractable Vomiting type: unspecified Qualified Code(s): R11.2 - Nausea with vomiting, unspecified
[2021-02-23] MEDS ORDERED: Nursing to Pharmacy Communication SCH ×2 (15:30→18:30)
[2021-02-23 19:12] LABS: Hematocrit (blood only) 24.5 % (42-52); Hemoglobin 8.3 g/dL (14.0-18.0)
[2021-02-23] MEDS: SUCRALFATE 1 GM/10 ML UDC PO SCH (21:26)
[2021-02-23] MEDS: INSULIN GLARGINE SOLOSTAR 100 UNITS/ML 3 ML PEN SQ SCH (21:27)
[2021-02-23] MEDS ORDERED: ACETAMINOPHEN 325 MG TAB PO STA (22:05)
[2021-02-24] MEDS: PANTOprazole 40 MG in DEXTROSE 5% 100 ML IV SCH ×5 (00:01→21:00)
[2021-02-24] MEDS: METOCLOPRAMIDE HCL INJ 5 MG/ML 2 ML VIAL IV SCH ×3 (02:51→16:45)
[2021-02-24] MEDS: CHECK CLONIDINE PATCH PLACEMENT SCH ×3 (02:51→16:24)
[2021-02-24 06:58] LABS: Hematocrit (blood only) 24.8 % (42-52); Hemoglobin 8.5 g/dL (14.0-18.0); Mean Corpuscular Hemoglobin 29.2 pg (25-34); Mean Corpuscular Hgb Conc 34.3 g/dL (32-36); Mean Corpuscular Volume 85.2 fL (80-100); Mean Platelet Volume 9.4 fL (7.4-10.4); Platelet Count 243 K/uL (130-400); RDW Coefficient of Variation 13.9 % (11.5-14.5); Red Blood Count 2.91 M/uL (4.7-6.1); White Blood Count 4.51 K/uL (4.8-10.8)
[2021-02-24 07:31] LABS: BUN Creatinine Ratio 13.7 (10-20); Calcium 8.2 mg/dl (8.5-10.1); Creatinine Clr Calc Pharmacy 28.8 ml/min; Est GFR (African American) 28.2 ml/min; Est GFR (Non-African American) 24.3 ml/min
[2021-02-24] MEDS: LORazepam 0.25 MG/0.5 ML VIAL IV PRN (07:41)
[2021-02-24] MEDS: INSULIN ASPART 100 UNITS/ML 3 ML PEN SC SCH ×4 (08:01→20:55)
[2021-02-24] MEDS: FLUTICASONE/VILANTEROL 200/25MCG 14 PUFFS/INHALER INH SCH (08:02)
[2021-02-24] MEDS: SUCRALFATE 1 GM/10 ML UDC PO SCH ×4 (08:02→20:53)
[2021-02-24] MEDS: amLODIPine BESYLATE 5 MG TAB PO SCH (08:02)
[2021-02-24] MEDS: MULTIVITAMIN TAB PO SCH (08:03)
[2021-02-24] MEDS: ADVANCED PROBIOTIC 1250 MG CAPSULE PO SCH ×2 (08:03→20:52)
[2021-02-24] MEDS ORDERED: POTASSIUM CHLORIDE CRTAB 20 MEQ TABCR PO STA (10:07)
--- NOTE | 2021-02-24 10:10 | Nephrology Progress Note ---
Date of Service February 24, 2021 Assessment & Plan Admission and Anticipated Discharge Date Admission Date: February 14, 2021 Subjective Subjective Subjective Assessment & Plan (1) Acute on chronic renal failure: Plan: Slight IVAN stage but this is mainly rapidly progressive CKD, now stage 4 w/ underlying 1 gm daily albuminuria at least. Creat has been going up steadily last 1 year and is most likely from his long standing Uncontrolled DM. Chemistries and volume status acceptable. Baseline urine c/w chronic inflammation such as nephropathy or GN or chronic interstitial nephritis. He has 4 g proteinuria here (previously in the 1 to 2 g daily range); -defer to primary service to titrate down opiate and gabapentin doses metabolites of which can accumulate in renal failure and cause altered mentation -daily bmp We talked about his potential need for dialysis and he is open to this if the need arises. Does not need now but very likely will need within next 6 month to 1 year. -will absolutely need close renal f/u after d/c, possibly in [place]. He lives alone and does have issues with f/u and transport etc --creat seems to be stable in the high 2's now. 2 HTN--I did check his Standing BP and it was only 118 systolic. The very labile pattern of his HTN is very classic for Diabetic neuropathy . need to check his standing BP before giving PRN meds. if not possible ( as he is very weak and can barely stand) i would rather ignore than overtreat and cause problem. There is no good solution to this issue. 3 Anemia--Now has GI bleed hgb dropped to <7 and had PRBC and EGD yeste rday=esophageal ulcer Subjective resting quietly; denies worsening sob, uncontrolled pain, n/v, poor po intake, voiding concerns +. Also GI bleed now. Review of Systems Review of Systems: All systems reviewed & are unremarkable except as noted in Subjective Physical Exam Constitutional: + ill appearing and + frail appearing no acute distress Eyes: EOM intact bilaterally ENMT: Ears: no external ear abnormality Nose: no external nose abnormality Mouth: + dry oral mucous membranes Neck: no nuchal rigidity Respiratory: normal respiratory effort and + cough (occasional) Auscultat ion: + diminished lung sounds Cardiovascular: Rate/Rhythm: regular rate and regular rhythm Extremities: + edema (Left ankle) Gastrointestinal (Abdomen): Inspection/Auscultation: normal bowel sounds Percussion/Palpation: abdomen soft; abdomen nontender Musculoskeletal: Extremities: + abnormal strength (as above w/ general appearance) Skin: no rashes, warm and dry Psychiatric: Orientation: oriented x 3 and cooperative Eye Contact: good eye contact Insight: good insight Labs=creat in the low to mid 3's stable. Hgb dropped to < 7. Results & Data ([facility]) Vital Signs (Past 12 Hours) Vital Signs Temp Pulse Pulse Resp BP Pulse Ox 02/24/21 07:35 36.7 C 107 H 20 186/98 H 96 02/24/21 07:21 80 02/24/21 03:22 37.1 C 81 18 173/86 H 97 02/24/21 00:00 92 H 02/23/21 23:22 36.9 C 80 19 204/71 H 98
[2021-02-24] MEDS: oxyCODONE HCL IR 5 MG TAB (IMMEDIATE RELEASE) PO PRN (17:23)
[2021-02-24] MEDS: INSULIN GLARGINE SOLOSTAR 100 UNITS/ML 3 ML PEN SQ SCH (20:55)
--- NOTE | 2021-02-24 20:57 | Hospitalist Progress Note ---
Date of Service February 24, 2021 Assessment & Plan (1) Gastroparesis: (2) Nausea & vomiting: (3) Acute on chronic renal failure: (4) Somnolence: Plan: 55-year-old male with NSCC of lung stage III s/p surgery and incomplete chemo secondary to intolerance, COPD, ulcerative colitis, type I DM with complication [gastroparesis, PDN], chronic pain on narcotics, HTN, past tobacco abuse, CKD [baseline around 2.5-3], chronic anemia and seizure disorder came in 02/12 with chief complaint of abdominal pain associated with nausea and vomiting. Is being managed for the following: #. Nausea and vomiting: Secondary to worsening gastroparesis and severe esophagitis complicated by increased pain medication requirement. H/o gastroparesis,and gastric pacemaker. Also on narcotics for chronic pain. Presented with nausea, vomiting and diarrhea Per patient, he recently visited his motilitist in [facility] and his gastric pacer was tweaked. GI consulted: Increase the Reglan dose to 3 times daily. Per patient, patient is scheduled for upper scope and possible dilation in [facility] on February 22. CT abd/pelvis showed no acute infectious or inflammatory findings are identified in the abdomen or pelvis. #. anemia: Acute blood loss anemia Positive FOBT Hemoglobin dropped to 6.9 today Transfused 1 unit PRBC Repeat H/H showed 6.8, transfuse an additional 1 unit PRBC (received a total of 2 units PRBC during hospital course) S/P EGD show normal esophagus. Distal esophageal ulcer that appeared clean based but a few with erythema Hemoglobin 8.5 today Diet advanced to full liquid Continue monitor H/H Aspiration Pneumonia Hypoxic Respiratory Failure CT showed patchy groundglass opacities are seen at the right lung base. -- off Bipap, off oxygen -- blood cultures and urine cx negative -- Completed the course of abx with Cefepime + Clindamycin -- Saturated well on RA #. IVAN over Chronic kidney disease stage III: His baseline creatinine used to be 2.5-3 according to his recent labs, Creatinine peaked to 4, creatinine continue to improve to 2.8 Nephrology on board Continue monitor BMP #. Hypertensive urgency: Presented with blood pressure of 164/94 Patient reports that he has always had high blood pressure Blood pressure currently fairly under control continue with home meds Use as needed IV medications per protocol. Follow-up with PCP for reevaluation and dose adjustment as appropriate upon discharge Nephrology on board As per nephrology no need to treat elevated BP since BP when standing drops The very labile pattern of his HTN is very classic for Diabetic neuropathy . need to check his standing BP before giving PRN meds. if not possible to stand due to weaknes, then rather ignore than overtreat and cause problem. Continue monitor BP # Altered mental status Toxic metabolic encephalopathy Likely secondary to narcotic in the setting of acute renal failure --Patient's usual MS Contin, oxycodone, gabapentin, Lexapro, Keppra renally dosed However patient continued to be drowsy Bottle of oxycodone found in patient's back, but patient denies using this well admitted --Currently, MS Contin, oxycodone, gabapentin, Lexapro on hold Psych, pain management, neurologist consulted Follow recommendations regarding restarting above meds carefully Mental status improved case discussed with neuro and recommended no need to get EEG and MRI since mental status improves #. Type 1 diabetes: His recent HbA1c was 7.4%. Continue his long-acting insulin sliding scale. consulted pharmacy glycemic control consult #. Non-small cell lung cancer, stage III, status post surgery, incomplete chemotherapy secondary to tolerance. Needs to follow up with PCP and oncologist. Patient aware. #. History of seizure disorder, --Usually on Keppra BID No NEUROLOGICAL: Alert, oriented, and cooperative. Cranial nerves, sensation and strength grossly intact. Pupils round, equal, and react to light, EOMs are full. On board recommend no driving for at least 6 months 3 of seizure #. Chronic pain: pain meds were on hold due to drowsiness/lethargy in the setting of renal failure Patient has been asking for his pain meds Case discussed with pain management to start the lowest dose possible narcotic Will start oxycodone 5 mg twice daily as needed Continue monitor closely #. Depression: Lexapro held due to drowsiness, refer to above #. History of chronic obstructive pulmonary disease: Continue home inhalers. DVT prophylaxis: Heparin SQ on hold due to +FOBT and Low hgb Position Lives at home PT and OT evaluation Admission and Anticipated Discharge Date Admission Date: February 14, 2021 Subjective Pt was seen and examined for follow up anemia Lying in bed with no acute distress Patient is fully awake and back to his baseline He Is requesting for his pain medication Spoke to pain management Dr. Hernandez that suggested to start to the lowest possible dose for narcotic Patient said that he continued to drive and right his motorcycle Patient was advised not to drive or ride his motorcycle for the next few weeks until reevaluated by neurology Denies any chest pain, palpitation, dizziness and SOB Review of Systems Review of Systems: All systems reviewed & are unremarkable except as noted in Subjective Physical Exam Physical Exam: General- No acute distress Head- atraumatic Eyes- PERRL, EOMI, ENT- oropharynx clear Neck- supple, no JVD Lungs- clear to auscultation Heart- regular rhythm; no murmur Abdomen- normal bowel sounds, soft, nontender Extremities- no calf tenderness Neuro- alert, oriented,; PERRL, EOMI; no facial palsy; no dysarthria Skin- warm & dry Results & Data Results & Data ([facility]) Vital Signs (Past 12 Hours) Vital Signs Temp Pulse Pulse Resp BP Pulse Ox 02/24/21 19:12 37.0 C 93 H 19 159/67 H 99 02/24/21 15:48 78 02/24/21 15:31 36.5 C 74 18 156/80 H 99 02/24/21 11:34 36.8 C 69 18 175/89 H 96 (1) Nausea & vomiting Vomiting Intractability: non-intractable Vomiting type: unspecified Qualified Code(s): R11.2 - Nausea with vomiting, unspecified
[2021-02-24] MEDS: hydrALAZINE HCL 20 MG/ML VIAL IV PRN (23:06)
[2021-02-25] MEDS: CHECK CLONIDINE PATCH PLACEMENT SCH ×4 (00:10→23:32)
[2021-02-25] MEDS: METOCLOPRAMIDE HCL INJ 5 MG/ML 2 ML VIAL IV SCH ×3 (02:05→18:44)
[2021-02-25] MEDS: PANTOprazole 40 MG in DEXTROSE 5% 100 ML IV SCH ×5 (02:05→20:56)
[2021-02-25] MEDS: oxyCODONE HCL IR 5 MG TAB (IMMEDIATE RELEASE) PO PRN ×2 (05:48→19:30)
[2021-02-25 06:32] LABS: Hematocrit (blood only) 24.4 % (42-52); Hemoglobin 8.3 g/dL (14.0-18.0); Mean Corpuscular Hemoglobin 29.1 pg (25-34); Mean Corpuscular Volume 85.6 fL (80-100); Platelet Count 254 K/uL (130-400); RDW Coefficient of Variation 14.1 % (11.5-14.5); RDW Standard Deviation 44.1 fL (36.4-46.3); Red Blood Count 2.85 M/uL (4.7-6.1); White Blood Count 4.52 K/uL (4.8-10.8)
[2021-02-25 07:06] LABS: BUN Creatinine Ratio 11.5 (10-20); Calcium 7.8 mg/dl (8.5-10.1); Creatinine Clr Calc Pharmacy 29.9 ml/min; Est GFR (African American) 29.4 ml/min; Est GFR (Non-African American) 25.4 ml/min; Potassium 3.2 mmol/L (3.5-5.1)
[2021-02-25] MEDS: INSULIN ASPART 100 UNITS/ML 3 ML PEN SC SCH ×4 (08:44→20:40)
[2021-02-25] MEDS: MULTIVITAMIN TAB PO SCH (08:45)
[2021-02-25] MEDS: amLODIPine BESYLATE 5 MG TAB PO SCH (08:45)
[2021-02-25] MEDS: FLUTICASONE/VILANTEROL 200/25MCG 14 PUFFS/INHALER INH SCH (08:45)
[2021-02-25] MEDS: SUCRALFATE 1 GM/10 ML UDC PO SCH ×4 (08:45→19:32)
[2021-02-25] MEDS: ADVANCED PROBIOTIC 1250 MG CAPSULE PO SCH ×2 (08:45→19:32)
[2021-02-25] MEDS ORDERED: POTASSIUM CHLORIDE 10 MEQ TABCR PO STA ×2 (09:40→12:50)
--- NOTE | 2021-02-25 12:29 | Nephrology Progress Note ---
Date of Service February 25, 2021 Assessment & Plan (1) Acute on chronic renal failure: Plan: Slight IVAN stage but this is mainly rapidly progressive CKD, now stage 4 w/ underlying 1 gm daily albuminuria at least. Creat has been going up steadily last 1 year and is most likely from his long standing Uncontrolled DM. Chemistries and volume status acceptable. Baseline urine c/w chronic inflammation such as nephropathy or GN or chronic interstitial nephritis. He has 4 g proteinuria here (previously in the 1 to 2 g daily range); -defer to primary service to titrate down opiate and gabapentin doses metabolites of which can accumulate in renal failure and cause altered mentation -daily bmp, at baseline We talked about his potential need for dialysis and he is open to this if the need arises. Does not need now but very likely will need within next 6 month to 1 year. -will absolutely need close renal f/u after d/c, possibly in [place]. He lives alone and does have issues with f/u and transport etc --creat seems to be stable in the high 2's now. (2) Hypertension: Plan: 2 HTN-- Standing BP checked earlier- 118 systolic. The very labile pattern of his HTN is very classic for Diabetic neuropathy . need to check his standing BP before giving PRN meds. if not possible ( as he is very weak and can barely stand) i would rather ignore than overtreat and cause problem. There is no good solution to this issue. (3) Anemia: Plan: managed by GI/ primary Admission and Anticipated Discharge Date Admission Date: February 14, 2021 Subjective Patient is fully awake and back to his baseline, not in nay distress, Review of Systems Review of Systems: All systems reviewed & are unremarkable except as noted in HPI & below Physical Exam Physical Exam: Physical Exam Constitutional: + ill appearing and + frail appearing no acute distress Eyes: EOM intact bilaterally ENMT: Ears: no external ear abnormality Nose: no external nose abnormality Mouth: + dry oral mucous membranes Neck: no nuchal rigidity Respiratory: normal respiratory effort and + cough (occasional) Auscultation: + diminished lung sounds Cardiovascular: Rate/Rhythm: regular rate and regular rhythm Extremities: + edema (Left ankle) Gastrointestinal (Abdomen): Inspection/Auscultation: normal bowel sounds Percussion/Palpation: abdomen soft; abdomen nontender Musculoskeletal: Extremities: + abnormal strength (as above w/ general appearance) Skin: no rashes, warm and dry Psychiatric: Orientation: oriented x 3 and cooperative Eye Contact: good eye contact Insight: good insight Results & Data ([facility]) Vital Signs (Past 12 Hours) Vital Signs Temp Pulse Pulse Resp BP BP Pulse Ox 02/25/21 11:13 36.8 C 89 19 177/89 H 98 02/25/21 07:37 36.7 C 84 19 165/84 H 98 02/25/21 07:18 89 02/25/21 04:07 37.2 C 89 18 122/73 98 Laboratory Results 02/25/21 05:57 02/25/21 05:57 (1) Hypertension Hypertension type: unspecified Qualified Code(s): I10 - Essential (primary) hypertension
--- NOTE | 2021-02-25 14:03 | Pharmacy Report ---
Pharmacy Glycemic Short Note 2 - Date of Service February 25, 2021 - Glycemic Short BSG Results (Last 24 hours): 02/24/21 02/24/21 02/25/21 16:05 20:49 05:57 Glucose 95 POC Glucose 126 H 189 H 02/25/21 02/25/21 07:05 11:13 Glucose POC Glucose 98 157 H OUTPATIENT ANTIDIABETIC REGIMEN: * Basaglar 7 units HS * Humalog per scale ASSESSMENT: 02/25: * Pt received total of 15 units of insulin yesterday, basal 7 units + bolus 8 units. * Fasting BSG = 95 mg/dl. Basal insulin continued the same. * Patient's seems to be eating better. Post prandials slightly elevated but not too far from goal. Novolog parameters continued the same. 02/23 * BSGs continue to remain slightly elevated despite changes made yesterday. Concern to increase insulin any further since patient has a history of lows and BSG swings with only adding 1-2 more units. Will tighten CF again which will give extra novolog q 4hrs. Will repeat Lantus dose increase from yesterday to prevent BSGs from increasing any further. * Extremely tight glycemic control not indicated for this patient given co- morbidities and brittle DM with hx of Lows. OK with BSGs in the 140-250 mg/dl range. Background * Mr Hamilton is a 55 y/o M with a PMH of T1DM who presents with hypertensive urgency and N/V. Pharmacy consulted on day 3 of hospitalization. * Patient received 15 units of insulin yesterday (5 units of basal and 10 units of bolus). BSGs [phone] mg/dL. Fasting today 327 mg/dL. * Lunch BSG 57 mg/dL due to overcorrection at breakfast. * Start lantus 7 units--- patient basal deficient and reason for hyperglycemia at breakfast. Give slightly earlier at dinnertime. * Loosen Novolog to parameters that were previously affective. PLAN FOR INPATIENT GLYCEMIC CONTROL: * Basal insulin * Lantus 7 units SQ HS * Bolus insulin * NovoLog per scale ACHS or Q6hrs while NPO * Goal Range: Low 120 mg/dL - High 160 mg/dL * Correction Factor: 35 mg/dL/unit (tighten from 40) * Nutritional / Prandial insulin per carb ratio of 1 unit per 18 grams CHO consumed PLAN FOR DISCHARGE: * Continue to follow-up with outpatient provider for in-depth insulin adjustments.
[2021-02-25] MEDS ORDERED: Nursing to Pharmacy Communication SCH (15:15)
--- NOTE | 2021-02-25 18:49 | Hospitalist Progress Note ---
Date of Service February 25, 2021 Assessment & Plan (1) Gastroparesis: (2) Nausea & vomiting: (3) Acute on chronic renal failure: (4) Somnolence: Plan: 55-year-old male with NSCC of lung stage III s/p surgery and incomplete chemo secondary to intolerance, COPD, ulcerative colitis, type I DM with complication [gastroparesis, PDN], chronic pain on narcotics, HTN, past tobacco abuse, CKD [baseline around 2.5-3], chronic anemia and seizure disorder came in 02/12 with chief complaint of abdominal pain associated with nausea and vomiting. Is being managed for the following: #. Nausea and vomiting: Secondary to worsening gastroparesis and severe esophagitis complicated by increased pain medication requirement. H/o gastroparesis,and gastric pacemaker. Also on narcotics for chronic pain. Presented with nausea, vomiting and diarrhea Per patient, he recently visited his motilitist in [facility] and his gastric pacer was tweaked. GI consulted: Increase the Reglan dose to 3 times daily. Per patient, patient is scheduled for upper scope and possible dilation in [facility] on February 22. CT abd/pelvis showed no acute infectious or inflammatory findings are identified in the abdomen or pelvis. #. anemia: Acute blood loss anemia Positive FOBT Hemoglobin dropped to 6.9 today Transfused 1 unit PRBC Repeat H/H showed 6.8, transfuse an additional 1 unit PRBC (received a total of 2 units PRBC during hospital course) S/P EGD show normal esophagus. Distal esophageal ulcer that appeared clean based but a few with erythema Hemoglobin 8.3 today Diet advanced to full liquid Continue monitor H/H Aspiration Pneumonia Hypoxic Respiratory Failure CT showed patchy groundglass opacities are seen at the right lung base. -- off Bipap, off oxygen -- blood cultures and urine cx negative -- Completed the course of abx with Cefepime + Clindamycin -- Saturated well on RA #. IVAN over Chronic kidney disease stage III: His baseline creatinine used to be 2.5-3 according to his recent labs, Creatinine peaked to 4, creatinine continue to improve to 2.7 Nephrology on board Continue monitor BMP #. Hypertensive urgency: Presented with blood pressure of 164/94 Patient reports that he has always had high blood pressure Blood pressure currently fairly under control continue with home meds Use as needed IV medications per protocol. Follow-up with PCP for reevaluation and dose adjustment as appropriate upon discharge Nephrology on board As per nephrology no need to treat elevated BP since BP when standing drops The very labile pattern of his HTN is very classic for Diabetic neuropathy . need to check his standing BP before giving PRN meds. if not possible to stand due to weaknes, then rather ignore than overtreat and cause problem. Continue monitor BP # Altered mental status Toxic metabolic encephalopathy Likely secondary to narcotic in the setting of acute renal failure --Patient's usual MS Contin, oxycodone, gabapentin, Lexapro, Keppra renally dosed However patient continued to be drowsy Bottle of oxycodone found in patient's back, but patient denies using this well admitted --Currently, MS Contin, oxycodone, gabapentin, Lexapro on hold Psych, pain management, neurologist consulted Follow recommendations regarding restarting above meds carefully Mental status improved case discussed with neuro and recommended no need to get EEG and MRI since mental status improves #. Type 1 diabetes: His recent HbA1c was 7.4%. Continue his long-acting insulin sliding scale. consulted pharmacy glycemic control consult #. Non-small cell lung cancer, stage III, status post surgery, incomplete chemotherapy secondary to tolerance. Needs to follow up with PCP and oncologist. Patient aware. #. History of seizure disorder, --Usually on Keppra BID No NEUROLOGICAL: Alert, oriented, and cooperative. Cranial nerves, sensation and strength grossly intact. Pupils round, equal, and react to light, EOMs are full. On board recommend no driving for at least 6 months 3 of seizure #. Chronic pain: pain meds were on hold due to drowsiness/lethargy in the setting of renal failure Patient has been asking for his pain meds Case discussed with pain management to start the lowest dose possible narcotic Will start oxycodone 5 mg twice daily as needed Continue monitor closely #. Depression: Lexapro held due to drowsiness, refer to above #. History of chronic obstructive pulmonary disease: Continue home inhalers. DVT prophylaxis: Heparin SQ on hold due to +FOBT and Low hgb Position Lives at home PT and OT evaluation Admission and Anticipated Discharge Date Admission Date: February 14, 2021 Subjective Pt was seen and examined for follow up anemia Lying in bed with no acute distress Patient is fully awake and back to his baseline He would like to go to rehab on discharge Denies any chest pain, palpitation, dizziness and SOB Review of Systems Review of Systems: All systems reviewed & are unremarkable except as noted in Subjective Physical Exam Physical Exam: General- No acute distress Head- atraumatic Eyes- PERRL, EOMI, ENT- oropharynx clear Neck- supple, no JVD Lungs- clear to auscultation Heart- regular rhythm; no murmur Abdomen- normal bowel sounds, soft, nontender Extremities- no calf tenderness Neuro- alert, oriented,; PERRL, EOMI; no facial palsy; no dysarthria Skin- warm & dry Results & Data Results & Data ([facility]) Vital Signs (Past 12 Hours) Vital Signs Temp Pulse Pulse Resp BP BP Pulse Ox 02/25/21 15:40 37.2 C 89 18 154/69 H 97 02/25/21 15:26 90 02/25/21 11:13 36.8 C 89 19 177/89 H 98 02/25/21 07:37 36.7 C 84 19 165/84 H 98 02/25/21 07:18 89 (1) Nausea & vomiting Vomiting Intractability: non-intractable Vomiting type: unspecified Qualified Code(s): R11.2 - Nausea with vomiting, unspecified
[2021-02-25] MEDS: INSULIN GLARGINE SOLOSTAR 100 UNITS/ML 3 ML PEN SQ SCH (20:41)
[2021-02-25 22:13] LABS: Amphetamines+Metham, Urine Neg (Neg); Barbiturates, Urine Neg (Neg); Benzodiazepine, Urine Neg (Neg); Cocaine, Urine Neg (Neg); MDMA (Ecstacy), Urine Neg (Neg); Methadone, Urine Neg (Neg); Opiate, Urine Neg (Neg); Phencyclidine, Urine Neg (Neg)
[2021-02-26] MEDS: PANTOprazole 40 MG in DEXTROSE 5% 100 ML IV SCH ×3 (01:41→10:53)
[2021-02-26] MEDS: METOCLOPRAMIDE HCL INJ 5 MG/ML 2 ML VIAL IV SCH ×3 (01:42→17:37)
[2021-02-26] MEDS: LORazepam 0.25 MG/0.5 ML VIAL IV PRN ×3 (03:59→12:49)
[2021-02-26] MEDS: SUCRALFATE 1 GM/10 ML UDC PO SCH ×4 (08:45→20:45)
[2021-02-26] MEDS: CHECK CLONIDINE PATCH PLACEMENT SCH ×3 (08:45→23:31)
[2021-02-26] MEDS: MULTIVITAMIN TAB PO SCH (08:46)
[2021-02-26] MEDS: ADVANCED PROBIOTIC 1250 MG CAPSULE PO SCH ×2 (08:46→20:44)
[2021-02-26] MEDS: FLUTICASONE/VILANTEROL 200/25MCG 14 PUFFS/INHALER INH SCH (08:47)
[2021-02-26] MEDS: amLODIPine BESYLATE 5 MG TAB PO SCH (08:47)
[2021-02-26] MEDS: INSULIN ASPART 100 UNITS/ML 3 ML PEN SC SCH ×5 (08:48→22:09)
[2021-02-26] MEDS: oxyCODONE HCL IR 5 MG TAB (IMMEDIATE RELEASE) PO PRN ×2 (08:50→21:23)
[2021-02-26] MEDS ORDERED: INSULIN GLARGINE SOLOSTAR 100 UNITS/ML 3 ML PEN SQ ONE (09:00)
[2021-02-26] MEDS: levETIRAcetam 500 MG TAB PO SCH ×2 (10:09→20:44)
[2021-02-26 11:33] LABS: Hematocrit (blood only) 23.9 % (42-52); Hemoglobin 8.1 g/dL (14.0-18.0); Mean Corpuscular Hemoglobin 29.5 pg (25-34); Mean Corpuscular Hgb Conc 33.9 g/dL (32-36); Mean Corpuscular Volume 86.9 fL (80-100); Mean Platelet Volume 9.9 fL (7.4-10.4); Platelet Count 244 K/uL (130-400); RDW Coefficient of Variation 14.4 % (11.5-14.5); Red Blood Count 2.75 M/uL (4.7-6.1); White Blood Count 4.29 K/uL (4.8-10.8)
[2021-02-26 12:05] LABS: BUN Creatinine Ratio 9.1 (10-20); Calcium 7.7 mg/dl (8.5-10.1); Creatinine Clr Calc Pharmacy 27.8 ml/min; Est GFR (Non-African American) 23.3 ml/min; Potassium 3.7 mmol/L (3.5-5.1)
[2021-02-26] MEDS ORDERED: LORazepam 0.5 MG TAB PO PRN ×2 (14:37→14:41)
[2021-02-26] MEDS: hydrALAZINE HCL 20 MG/ML VIAL IV PRN (16:50)
[2021-02-26] MEDS ORDERED: LORazepam 0.5 MG TAB PO STA (17:28)
[2021-02-26] MEDS: INSULIN GLARGINE SOLOSTAR 100 UNITS/ML 3 ML PEN SQ SCH (20:43)
[2021-02-26] MEDS: PANTOprazole 40 MG TAB PO SCH (20:48)
[2021-02-26] MEDS: LORazepam 0.5 MG TAB PO PRN (21:23)
[2021-02-26] MEDS: LABETALOL HCL IV 5 MG/ML 20ML IV PRN (22:51)
--- NOTE | 2021-02-26 23:35 | Hospitalist Progress Note ---
Date of Service February 26, 2021 Assessment & Plan (1) Gastroparesis: (2) Nausea & vomiting: (3) Acute on chronic renal failure: (4) Somnolence: Plan: 55-year-old male with NSCC of lung stage III s/p surgery and incomplete chemo secondary to intolerance, COPD, ulcerative colitis, type I DM with complication [gastroparesis, PDN], chronic pain on narcotics, HTN, past tobacco abuse, CKD [baseline around 2.5-3], chronic anemia and seizure disorder came in 02/12 with chief complaint of abdominal pain associated with nausea and vomiting. Is being managed for the following: #. Nausea and vomiting: Secondary to worsening gastroparesis and severe esophagitis complicated by increased pain medication requirement. H/o gastroparesis,and gastric pacemaker. Also on narcotics for chronic pain. Presented with nausea, vomiting and diarrhea Per patient, he recently visited his motilitist in [facility] and his gastric pacer was tweaked. GI consulted: Increase the Reglan dose to 3 times daily. Per patient, patient is scheduled for upper scope and possible dilation in [facility] on February 22. CT abd/pelvis showed no acute infectious or inflammatory findings are identified in the abdomen or pelvis. #. anemia: Acute blood loss anemia Positive FOBT Hemoglobin dropped to 6.9 today Transfused 1 unit PRBC Repeat H/H showed 6.8, transfuse an additional 1 unit PRBC (received a total of 2 units PRBC during hospital course) S/P EGD show normal esophagus. Distal esophageal ulcer that appeared clean based but a few with erythema Hemoglobin 8.1 today IV PPI drip transition to p.o. PPI twice daily Diet advanced to low fiber Continue monitor H/H Aspiration Pneumonia Hypoxic Respiratory Failure CT showed patchy groundglass opacities are seen at the right lung base. -- off Bipap, off oxygen -- blood cultures and urine cx negative -- Completed the course of abx with Cefepime + Clindamycin -- Saturated well on RA #. IVAN over Chronic kidney disease stage III: His baseline creatinine used to be 2.5-3 according to his recent labs, Creatinine peaked to 4, creatinine 2.9 today Nephrology on board Continue monitor BMP #. Hypertensive urgency: Presented with blood pressure of 164/94 Patient reports that he has always had high blood pressure Blood pressure currently fairly under control continue with home meds Use as needed IV medications per protocol. Follow-up with PCP for reevaluation and dose adjustment as appropriate upon discharge Nephrology on board As per nephrology no need to treat elevated BP since BP when standing drops The very labile pattern of his HTN is very classic for Diabetic neuropathy . need to check his standing BP before giving PRN meds. if not possible to stand due to weakness, then rather ignore than overtreat and cause problem. Continue monitor BP # Altered mental status Toxic metabolic encephalopathy Likely secondary to narcotic in the setting of acute renal failure --Patient's usual MS Contin, oxycodone, gabapentin, Lexapro, Keppra renally dosed However patient continued to be drowsy Bottle of oxycodone found in patient's back, but patient denies using this well admitted --Currently, MS Contin, oxycodone, gabapentin, Lexapro on hold Psych, pain management, neurologist consulted Follow recommendations regarding restarting above meds carefully Mental status improved case discussed with neuro and recommended no need to get EEG and MRI since mental status improves #. Type 1 diabetes: His recent HbA1c was 7.4%. Continue his long-acting insulin sliding scale. consulted pharmacy glycemic control consult #. Non-small cell lung cancer, stage III, status post surgery, incomplete chemotherapy secondary to tolerance. Needs to follow up with PCP and oncologist. Patient aware. #. History of seizure disorder, --Usually on Keppra BID No NEUROLOGICAL: Alert, oriented, and cooperative. Cranial nerves, sensation and strength grossly intact. Pupils round, equal, and react to light, EOMs are full. On board recommend no driving for at least 6 months 3 of seizure #. Chronic pain: pain meds were on hold due to drowsiness/lethargy in the setting of renal failure Patient has been asking for his pain meds Case discussed with pain management to start the lowest dose possible narcotic Continue oxycodone 5 mg twice daily as needed Continue monitor closely #. Depression: Lexapro held due to drowsiness, refer to above #. History of chronic obstructive pulmonary disease: Continue home inhalers. DVT prophylaxis: Heparin SQ on hold due to +FOBT and Low hgb Disposition Waiting for placement to discharge home If pt does not approve to [facility], will discharge home with home [facility], will discharge home to Admission and Anticipated Discharge Date Admission Date: February 14, 2021 Subjective Pt was seen and examined for follow up anemia Sitting in bed with no acute distress Patient is fully awake and back to his baseline He would like to go to rehab on discharge Denies any chest pain, palpitation, dizziness and SOB Review of Systems Review of Systems: All systems reviewed & are unremarkable except as noted in Subjective Physical Exam Physical Exam: General- No acute distress Head- atraumatic Eyes- PERRL, EOMI, ENT- oropharynx clear Neck- supple, no JVD Lungs- clear to auscultation Heart- regular rhythm; no murmur Abdomen- normal bowel sounds, soft, nontender Extremities- no calf tenderness Neuro- alert, oriented,; PERRL, EOMI; no facial palsy; no dysarthria Skin- warm & dry Results & Data Results & Data ([facility]) Vital Signs (Past 12 Hours) Vital Signs Temp Pulse Pulse Resp BP BP Pulse Ox 02/26/21 23:07 36.5 C 85 16 172/83 H 95 02/26/21 19:10 36.7 C 79 18 137/71 98 02/26/21 17:47 161/79 H 02/26/21 16:32 36.6 C 88 18 189/93 H 97 02/26/21 15:00 90 02/26/21 12:13 36.8 C 93 H 20 166/91 H 99 (1) Nausea & vomiting Vomiting Intractability: non-intractable Vomiting type: unspecified Qualified Code(s): R11.2 - Nausea with vomiting, unspecified
[2021-02-27] MEDS: METOCLOPRAMIDE HCL INJ 5 MG/ML 2 ML VIAL IV SCH ×3 (01:21→18:28)
[2021-02-27] MEDS: LORazepam 0.5 MG TAB PO PRN ×4 (03:25→22:25)
[2021-02-27 06:12] LABS: Hematocrit (blood only) 21.2 % (42-52); Hemoglobin 7.1 g/dL (14.0-18.0); Mean Corpuscular Hemoglobin 28.9 pg (25-34); Mean Corpuscular Hgb Conc 33.5 g/dL (32-36); Mean Corpuscular Volume 86.2 fL (80-100); Mean Platelet Volume 10.4 fL (7.4-10.4); Platelet Count 231 K/uL (130-400); RDW Coefficient of Variation 14.6 % (11.5-14.5); RDW Standard Deviation 45.6 fL (36.4-46.3); Red Blood Count 2.46 M/uL (4.7-6.1); White Blood Count 4.23 K/uL (4.8-10.8)
[2021-02-27 06:50] LABS: Calcium 7.5 mg/dl (8.5-10.1); Creatinine Clr Calc Pharmacy 26.6 ml/min; Est GFR (African American) 25.5 ml/min; Potassium 4.1 mmol/L (3.5-5.1)
[2021-02-27] MEDS: CHECK CLONIDINE PATCH PLACEMENT SCH ×3 (08:08→23:09)
[2021-02-27] MEDS: SUCRALFATE 1 GM/10 ML UDC PO SCH ×4 (08:08→21:26)
[2021-02-27] MEDS: levETIRAcetam 500 MG TAB PO SCH ×2 (08:09→21:23)
[2021-02-27] MEDS: amLODIPine BESYLATE 5 MG TAB PO SCH (08:09)
[2021-02-27] MEDS: INSULIN ASPART 100 UNITS/ML 3 ML PEN SC SCH ×4 (08:10→21:24)
[2021-02-27] MEDS: ADVANCED PROBIOTIC 1250 MG CAPSULE PO SCH ×2 (08:10→21:23)
[2021-02-27] MEDS: MULTIVITAMIN TAB PO SCH (08:10)
[2021-02-27] MEDS: FLUTICASONE/VILANTEROL 200/25MCG 14 PUFFS/INHALER INH SCH (08:10)
[2021-02-27] MEDS: PANTOprazole 40 MG TAB PO SCH ×2 (08:10→21:23)
[2021-02-27] MEDS ORDERED: INSULIN GLARGINE SOLOSTAR 100 UNITS/ML 3 ML PEN SQ SCH (09:00)
[2021-02-27] MEDS ORDERED: SODIUM CHLORIDE 0.9% 250 ML IV PRN (09:26)
[2021-02-27] MEDS: oxyCODONE HCL IR 5 MG TAB (IMMEDIATE RELEASE) PO PRN ×2 (09:34→22:25)
--- NOTE | 2021-02-27 10:03 | Pharmacy Report ---
Pharmacy Glycemic Short Note 2 - Date of Service February 27, 2021 - Glycemic Short BSG Results (Last 24 hours): 02/26/21 02/26/21 02/26/21 11:05 11:59 16:35 Glucose 154 H POC Glucose 147 H 219 H 02/26/21 02/27/21 02/27/21 20:08 02:57 05:29 Glucose 157 H POC Glucose 182 H 180 H 02/27/21 07:38 Glucose POC Glucose 204 H OUTPATIENT ANTIDIABETIC REGIMEN: * Basaglar 7 units HS * Humalog per scale ASSESSMENT: 02/27: * BSGs yesterday of 185, 147, 219, and 182 mg/dL * Received 9 units of Lantus 15 units of Novolog * Fasting BSG this morning of 204 mg/dL * Of note, Protonix gtt (containing-dextrose) was switched to IV bolus BID * will hold off on 2 unit AM dose of Lantus and plan for 7 units this evening 02/25: * Pt received total of 15 units of insulin yesterday, basal 7 units + bolus 8 units. * Fasting BSG = 95 mg/dl. Basal insulin continued the same. * Patient's seems to be eating better. Post prandials slightly elevated but not too far from goal. Novolog parameters continued the same. 02/23 * BSGs continue to remain slightly elevated despite changes made yesterday. Concern to increase insulin any further since patient has a history of lows and BSG swings with only adding 1-2 more units. Will tighten CF again which will give extra novolog q 4hrs. Will repeat Lantus dose increase from yesterday to prevent BSGs from increasing any further. * Extremely tight glycemic control not indicated for this patient given co- morbidities and brittle DM with hx of Lows. OK with BSGs in the 140-250 mg/dl range. Background * Mr Hamilton is a 55 y/o M with a PMH of T1DM who presents with hypertensive urgency and N/V. Pharmacy consulted on day 3 of hospitalization. * Patient received 15 units of insulin yesterday (5 units of basal and 10 units of bolus). BSGs [phone] mg/dL. Fasting today 327 mg/dL. * Lunch BSG 57 mg/dL due to overcorrection at breakfast. * Start lantus 7 units--- patient basal deficient and reason for hyperglycemia at breakfast. Give slightly earlier at dinnertime. * Loosen Novolog to parameters that were previously affective. PLAN FOR INPATIENT GLYCEMIC CONTROL: * Basal insulin * Lantus 7 units SQ HS * Bolus insulin * NovoLog per scale ACHS or Q6hrs while NPO * Goal Range: Low 110 mg/dL - High 140 mg/dL * Correction Factor: 35 mg/dL/unit (tighten from 40) * Nutritional / Prandial insulin per carb ratio of 1 unit per 18 grams CHO consumed PLAN FOR DISCHARGE: * Continue to follow-up with outpatient provider for in-depth insulin adjustments.
[2021-02-27] MEDS: hydrALAZINE HCL 20 MG/ML VIAL IV PRN (11:27)
[2021-02-27] MEDS: FERROUS SULFATE 325 MG TAB PO SCH ×2 (12:03→17:29)
--- NOTE | 2021-02-27 12:32 | Hospitalist Progress Note ---
Date of Service February 27, 2021 Assessment & Plan (1) Gastroparesis: (2) Nausea & vomiting: (3) Acute on chronic renal failure: (4) Somnolence: Plan: 55-year-old male with NSCC of lung stage III s/p surgery and incomplete chemo secondary to intolerance, COPD, ulcerative colitis, type I DM with complication [gastroparesis, PDN], chronic pain on narcotics, HTN, past tobacco abuse, CKD [baseline around 2.5-3], chronic anemia and seizure disorder came in 02/12 with chief complaint of abdominal pain associated with nausea and vomiting. Is being managed for the following: #. Nausea and vomiting: Secondary to worsening gastroparesis and severe esophagitis complicated by increased pain medication requirement. H/o gastroparesis,and gastric pacemaker. Also on narcotics for chronic pain. Presented with nausea, vomiting and diarrhea Per patient, he recently visited his motilitist in [facility] and his gastric pacer was tweaked. GI consulted: Increase the Reglan dose to 3 times daily. Per patient, patient is scheduled for upper scope and possible dilation in [facility] on February 22. CT abd/pelvis showed no acute infectious or inflammatory findings are identified in the abdomen or pelvis. #. anemia: Acute blood loss anemia Positive FOBT Hemoglobin dropped to 6.9 today Transfused 1 unit PRBC Repeat H/H showed 6.8, transfuse an additional 1 unit PRBC (received a total of 2 units PRBC during hospital course) S/P EGD show normal esophagus. Distal esophageal ulcer that appeared clean based but a few with erythema Hemoglobin 7.1 today IV PPI drip transition to p.o. PPI twice daily Type a crossed and will transfuse 1 unit PRBC today Will change diet to full liquid GI was notified, no plan to repeat EGD since pt just had one done on 02/23 Continue monitor H/H Aspiration Pneumonia Hypoxic Respiratory Failure CT showed patchy groundglass opacities are seen at the right lung base. -- off Bipap, off oxygen -- blood cultures and urine cx negative -- Completed the course of abx with Cefepime + Clindamycin -- Saturated well on RA #. IVAN over Chronic kidney disease stage III: His baseline creatinine used to be 2.5-3 according to his recent labs, Creatinine peaked to 4, creatinine 3.04 today Nephrology on board Continue monitor BMP #. Hypertensive urgency: Presented with blood pressure of 164/94 Patient reports that he has always had high blood pressure Blood pressure currently fairly under control continue with home meds Use as needed IV medications per protocol. Follow-up with PCP for reevaluation and dose adjustment as appropriate upon discharge Nephrology on board As per nephrology no need to treat elevated BP since BP when standing drops The very labile pattern of his HTN is very classic for Diabetic neuropathy . need to check his standing BP before giving PRN meds. if not possible to stand due to weakness, then rather ignore than overtreat and cause problem. Continue monitor BP # Altered mental status Toxic metabolic encephalopathy Likely secondary to narcotic in the setting of acute renal failure --Patient's usual MS Contin, oxycodone, gabapentin, Lexapro, Keppra renally dosed However patient continued to be drowsy Bottle of oxycodone found in patient's back, but patient denies using this well admitted --Currently, MS Contin, oxycodone, gabapentin, Lexapro on hold Psych, pain management, neurologist consulted Follow recommendations regarding restarting above meds carefully Mental status improved case discussed with neuro and recommended no need to get EEG and MRI since mental status improves #. Type 1 diabetes: His recent HbA1c was 7.4%. Continue his long-acting insulin sliding scale. consulted pharmacy glycemic control consult #. Non-small cell lung cancer, stage III, status post surgery, incomplete chemotherapy secondary to tolerance. Needs to follow up with PCP and oncologist. Patient aware. #. History of seizure disorder, --Usually on Keppra BID No NEUROLOGICAL: Alert, oriented, and cooperative. Cranial nerves, sensation and strength grossly intact. Pupils round, equal, and react to light, EOMs are full. On board recommend no driving for at least 6 months 3 of seizure #. Chronic pain: pain meds were on hold due to drowsiness/lethargy in the setting of renal failure Patient has been asking for his pain meds Case discussed with pain management to start the lowest dose possible narcotic Continue oxycodone 5 mg twice daily as needed Continue monitor closely #. Depression: Lexapro held due to drowsiness, refer to above #. History of chronic obstructive pulmonary disease: Continue home inhalers. DVT prophylaxis: Heparin SQ on hold due to +FOBT and Low hgb Disposition Will discharge once medically stable If pt does not approve to [facility], will discharge home with home home health Admission and Anticipated Discharge Date Admission Date: February 14, 2021 Subjective Pt was seen and examined for follow up anemia Sitting in bed with no acute distress Pt said that he feels fine. He was looking forward to go to rehab today His hgb dropped to 7.1 this morning He said that yesterday he had dark bowel movement Denies any chest pain, palpitation, dizziness and SOB Review of Systems Review of Systems: All systems reviewed & are unremarkable except as noted in Subjective Physical Exam Physical Exam: General- No acute distress Head- atraumatic Eyes- PERRL, EOMI, ENT- oropharynx clear Neck- supple, no JVD Lungs- clear to auscultation Heart- regular rhythm; no murmur Abdomen- normal bowel sounds, soft, nontender Extremities- no calf tenderness Neuro- alert, oriented,; PERRL, EOMI; no facial palsy; no dysarthria Skin- warm & dry Results & Data Results & Data ([facility]) Vital Signs (Past 12 Hours) Vital Signs Temp Pulse Pulse Resp BP BP BP 02/27/21 11:45 36.6 C 88 18 141/68 H 02/27/21 11:30 36.8 C 89 18 151/86 H 02/27/21 11:18 36.8 C 89 18 171/87 H 02/27/21 07:15 37.2 C 86 18 134/70 02/27/21 02:56 36.9 C 91 H 16 127/73 Pulse Ox 02/27/21 11:45 97 02/27/21 11:30 97 02/27/21 11:18 98 02/27/21 07:15 96 02/27/21 02:56 96 (1) Nausea & vomiting Vomiting Intractability: non-intractable Vomiting type: unspecified Qualified Code(s): R11.2 - Nausea with vomiting, unspecified
--- NOTE | 2021-02-27 19:16 | Nephrology Progress Note ---
Date of Service February 27, 2021 Assessment & Plan (1) Acute on chronic renal failure: Plan: Slight IVAN stage but this is mainly rapidly progressive CKD, now stage 4 w/ underlying 1 gm daily albuminuria at least. Creat has been going up steadily last 1 year and is most likely from his long standing Uncontrolled DM. Chemistries and volume status acceptable. Baseline urine c/w chronic inflammation such as nephropathy or GN or chronic interstitial nephritis. He has 4 g proteinuria here (previously in the 1 to 2 g daily range); -defer to primary service to titrate down opiate and gabapentin doses metabolites of which can accumulate in renal failure and cause altered mentation -daily bmp, at baseline We talked about his potential need for dialysis and he is open to this if the need arises. Does not need now but very likely will need within next 6 month to 1 year. -will absolutely need close renal f/u after d/c, possibly in [place]. He lives alone and does have issues with f/u and transport etc --creat seems to be stable in the high 2's or around 3 now. (2) Hypertension: Plan: very labile pattern of his HTN is very classic for Diabetic neuropathy and autonomic dysfunction . need to check his standing BP before giving PRN meds. if not possible ( as he is very weak and can barely stand) i would rather ignore than overtreat and cause problems. There is no good solution to this chronic issue. (3) Anemia: Plan: managed by GI/ primary -transfuse prn Admission and Anticipated Discharge Date Admission Date: February 14, 2021 Subjective emesis x a few bouts and w/ ongoing N; no sob, no worsening pain, no decreased uop Review of Systems Review of Systems: All systems reviewed & are unremarkable except as noted in Subjective Physical Exam Constitutional: well developed, + ill appearing and + frail appearing; no acute distress Eyes: EOM intact bilaterally ENMT: Ears: no external ear abnormality Nose: no external nose abnormality Mouth: + dry oral mucous membranes Neck: no nuchal rigidity Respiratory: normal respiratory effort Auscultation: + diminished lung sounds Cardiovascular: Rate/Rhythm: regular rate and regular rhythm Extremities: + edema (Left ankle) Gastrointestinal (Abdomen): Inspection/Auscultation: normal bowel sounds Percussion/Palpation: abdomen soft; abdomen nontender Musculoskeletal: Extremities: + abnormal strength (as above w/ general appearance) Skin: no rashes, warm and dry Psychiatric: Orientation: oriented x 3 and cooperative Eye Contact: good eye contact Insight: good insight Results & Data ([facility]) Vital Signs (Past 12 Hours) Vital Signs Temp Pulse Pulse Resp BP BP Pulse Ox 02/27/21 13:44 36.7 C 93 H 18 156/78 H 02/27/21 13:20 36.6 C 91 H 16 154/86 H 98 02/27/21 12:15 36.3 C L 90 18 117/67 97 02/27/21 11:45 36.6 C 88 18 141/68 H 97 02/27/21 11:30 36.8 C 89 18 151/86 H 97 02/27/21 11:18 36.8 C 89 18 171/87 H 98 02/27/21 07:15 37.2 C 86 18 134/70 96 Laboratory Results 02/27/21 05:29 02/27/21 05:29 (1) Hypertension Hypertension type: unspecified Qualified Code(s): I10 - Essential (primary) hypertension
[2021-02-27 20:17] LABS: Hematocrit (blood only) 24.8 % (42-52); Hemoglobin 8.3 g/dL (14.0-18.0)
[2021-02-27] MEDS: INSULIN GLARGINE SOLOSTAR 100 UNITS/ML 3 ML PEN SQ SCH (21:23)
[2021-02-28] MEDS: LABETALOL HCL IV 5 MG/ML 20ML IV PRN (00:06)
[2021-02-28] MEDS: METOCLOPRAMIDE HCL INJ 5 MG/ML 2 ML VIAL IV SCH ×3 (01:02→17:31)
[2021-02-28] MEDS: hydrALAZINE HCL 20 MG/ML VIAL IV PRN (05:13)
[2021-02-28] MEDS: LORazepam 0.5 MG TAB PO PRN ×2 (05:13→16:01)
[2021-02-28 08:02] LABS: Hematocrit (blood only) 24.1 % (42-52); Mean Corpuscular Hemoglobin 29.9 pg (25-34); Mean Corpuscular Hgb Conc 33.2 g/dL (32-36); Mean Corpuscular Volume 89.9 fL (80-100); Platelet Count 211 K/uL (130-400); RDW Coefficient of Variation 15.1 % (11.5-14.5); RDW Standard Deviation 49.2 fL (36.4-46.3); Red Blood Count 2.68 M/uL (4.7-6.1); White Blood Count 5.55 K/uL (4.8-10.8)
[2021-02-28] MEDS: amLODIPine BESYLATE 5 MG TAB PO SCH (08:28)
[2021-02-28] MEDS: FERROUS SULFATE 325 MG TAB PO SCH ×2 (08:28→17:29)
[2021-02-28] MEDS: SUCRALFATE 1 GM/10 ML UDC PO SCH ×4 (08:28→20:25)
[2021-02-28] MEDS: MULTIVITAMIN TAB PO SCH (08:28)
[2021-02-28] MEDS: ADVANCED PROBIOTIC 1250 MG CAPSULE PO SCH ×2 (08:28→20:25)
[2021-02-28] MEDS: PANTOprazole 40 MG TAB PO SCH ×2 (08:28→20:25)
[2021-02-28] MEDS: levETIRAcetam 500 MG TAB PO SCH ×2 (08:28→20:25)
[2021-02-28] MEDS: CHECK CLONIDINE PATCH PLACEMENT SCH ×3 (08:29→23:52)
[2021-02-28] MEDS: FLUTICASONE/VILANTEROL 200/25MCG 14 PUFFS/INHALER INH SCH (08:29)
[2021-02-28 08:30] LABS: BUN Creatinine Ratio 10.3 (10-20); Calcium 7.2 mg/dl (8.5-10.1); Creatinine Clr Calc Pharmacy 29.8 ml/min; Est GFR (African American) 29.3 ml/min; Est GFR (Non-African American) 25.3 ml/min; Potassium 4.4 mmol/L (3.5-5.1)
[2021-02-28] MEDS: INSULIN ASPART 100 UNITS/ML 3 ML PEN SC SCH ×4 (08:30→20:26)
[2021-02-28] MEDS: INSULIN GLARGINE SOLOSTAR 100 UNITS/ML 3 ML PEN SQ SCH ×2 (08:32→20:26)
[2021-02-28] MEDS: oxyCODONE HCL IR 5 MG TAB (IMMEDIATE RELEASE) PO PRN (10:23)
--- NOTE | 2021-02-28 11:12 | Nephrology Progress Note ---
Date of Service February 28, 2021 Assessment & Plan (1) Acute on chronic renal failure: Plan: now resolved IVAN stage 1 on rapidly progressive CKD, now stage 4 w/ underlying 1 gm daily albuminuria at least. Creat has been going up steadily last 1 year and is most likely from his long standing Uncontrolled DM. Chemistries and volume status acceptable. Baseline urine c/w chronic inflammation such as nephropathy or GN or chronic interstitial nephritis. He has 4 g proteinuria here (previously in the 1 to 2 g daily range); baseline creatinine fall 2020 is about 3. -defer to primary service to titrate down opiate and gabapentin doses metabolites of which can accumulate in renal failure and cause altered mentation -daily bmp at baseline open to dialysis if the need arises. Does not need now but very likely will need within next 6 month to 1 year. -will sign off; pls see below DISCHARGE RECOMMENDATIONS -needs hospital discharge appt in [place] w/ Dr Barajas w/in 2-4 wks of hospital d/c - he lives alone and does have issues with f/u and transport -needs bmp, hgb weekly until seen; pls forward to Dr Barajas's OP nurse pool at d/c so orders can go in under his name > p [phone] -as below for HTN (2) Hypertension: Plan: very labile pattern of his HTN is very classic for Diabetic neuropathy and autonomic dysfunction. need to check his standing BP before giving PRN meds. if not possible ( as he is very weak and can barely stand) i would rather ignore than overtreat and cause problems. There is no good solution to this chronic issue. -cont standing amlodipine and clonidine -caution as above w/ prn meds > stopped labetalol prn; consider scaling back to hydralazine only and then evaluate whether standing dose needed since he seems to receive this medication frequently; again though, prefer liberal bp targets over excessive BP swings (3) Anemia: Plan: managed by GI/ primary. not an PROSPER candidate d/t cancer dx -transfuse prn -f/u GI recs Admission and Anticipated Discharge Date Admission Date: February 14, 2021 Subjective pt seen about 1445 and resting quietly; no c/o uncontrolled pain or N today Review of Systems Review of Systems: All systems reviewed & are unremarkable except as noted in Subjective Physical Exam Constitutional: well developed, + ill appearing and + frail appearing; no acute distress Eyes: EOM intact bilaterally ENMT: Ears: no external ear abnormality Nose: no external nose abnormality Mouth: + dry oral mucous membranes Neck: no nuchal rigidity Respiratory: normal respiratory effort Auscultation: + diminished lung sounds Cardiovascular: Rate/Rhythm: regular rate and regular rhythm Extremities: + edema (Left ankle) Gastrointestinal (Abdomen): Inspection/Auscultation: normal bowel sounds Percussion/Palpation: abdomen soft; abdomen nontender Musculoskeletal: Extremities: + abnormal strength (as above w/ general appearance) Skin: no rashes, warm and dry Psychiatric: Orientation: oriented x 3 and cooperative Eye Contact: good eye contact Insight: good insight Results & Data ([place]) Vital Signs (Past 12 Hours) Vital Signs Temp Pulse Pulse Resp BP BP Pulse Ox 02/28/21 07:36 36.8 C 83 18 103/61 96 02/28/21 07:09 85 02/28/21 03:45 36.9 C 87 20 168/88 H 97 02/27/21 23:58 37.1 C 92 H 18 169/86 H 96 Laboratory Results 02/28/21 07:56 02/28/21 07:56 (1) Acute on chronic renal failure Chronic kidney disease stage: stage 4 (severe) (2) Hypertension Hypertension type: unspecified Qualified Code(s): I10 - Essential (primary) hypertension
--- NOTE | 2021-02-28 20:57 | Hospitalist Progress Note ---
Date of Service February 28, 2021 Assessment & Plan (1) Gastroparesis: (2) Nausea & vomiting: (3) Acute on chronic renal failure: (4) Somnolence: Plan: 55-year-old male with NSCC of lung stage III s/p surgery and incomplete chemo secondary to intolerance, COPD, ulcerative colitis, type I DM with complication [gastroparesis, PDN], chronic pain on narcotics, HTN, past tobacco abuse, CKD [baseline around 2.5-3], chronic anemia and seizure disorder came in 02/12 with chief complaint of abdominal pain associated with nausea and vomiting. Is being managed for the following: #. Nausea and vomiting: Secondary to worsening gastroparesis and severe esophagitis complicated by increased pain medication requirement. H/o gastroparesis,and gastric pacemaker. Also on narcotics for chronic pain. Presented with nausea, vomiting and diarrhea Per patient, he recently visited his motilitist in [facility] and his gastric pacer was tweaked. GI consulted: Increase the Reglan dose to 3 times daily. Per patient, patient is scheduled for upper scope and possible dilation in [facility] on February 22. CT abd/pelvis showed no acute infectious or inflammatory findings are identified in the abdomen or pelvis. Clinically improved significantly #. anemia: Acute blood loss anemia Positive FOBT Hemoglobin dropped to 6.9 today Transfused 1 unit PRBC Repeat H/H showed 6.8, transfused an additional 1 unit PRBC S/P EGD show normal esophagus. Distal esophageal ulcer that appeared clean based but a few with erythema Hemoglobin 8 today IV PPI drip transition to p.o. PPI twice daily Type a crossed and received an additional 1 L PRBC yesterday( received a total of 2 units PRBC during hospital course) Diet advance to low fiber as tolerated GI was notified, no plan to repeat EGD since pt just had one done on 02/23 Continue monitor H/H Aspiration Pneumonia Hypoxic Respiratory Failure CT showed patchy groundglass opacities are seen at the right lung base. -- off Bipap, off oxygen -- blood cultures and urine cx negative -- Completed the course of abx with Cefepime + Clindamycin -- Saturated well on RA #. IVAN over Chronic kidney disease stage III: His baseline creatinine used to be 2.5-3 according to his recent labs, Creatinine peaked to 4, creatinine 2.7 today Nephrology on board Case discussed with nephrology Check BMP in hemoglobin weekly until next follow-up appointment with nephrology Follow-up with nephrology in [address] to [address] Barajas in [facility] From nephrology standpoint to discharge #. Hypertensive urgency: Presented with blood pressure of 164/94 Patient reports that he has always had high blood pressure Blood pressure currently fairly under control continue with home meds Use as needed IV medications per protocol. Follow-up with PCP for reevaluation and dose adjustment as appropriate upon discharge Nephrology on board As per nephrology no need to treat elevated BP since BP when standing drops The very labile pattern of his HTN is very classic for Diabetic neuropathy . need to check his standing BP before giving PRN meds. if not possible to stand due to weakness, then rather ignore than overtreat and cause problem. Continue monitor BP # Altered mental status Toxic metabolic encephalopathy Likely secondary to narcotic in the setting of acute renal failure --Patient's usual MS Contin, oxycodone, gabapentin, Lexapro, Keppra renally dosed However patient continued to be drowsy Bottle of oxycodone found in patient's back, but patient denies using this well admitted --Currently, MS Contin, oxycodone, gabapentin, Lexapro on hold Psych, pain management, neurologist consulted Follow recommendations regarding restarting above meds carefully case discussed with neuro and recommended no need to get EEG and MRI since mental status improves Resolved #. Type 1 diabetes: His recent HbA1c was 7.4%. Continue his long-acting insulin sliding scale. consulted pharmacy glycemic control consult #. Non-small cell lung cancer, stage III, status post surgery, incomplete chemotherapy secondary to tolerance. Needs to follow up with PCP and oncologist. Patient aware. #. History of seizure disorder, --Usually on Keppra BID No NEUROLOGICAL: Alert, oriented, and cooperative. Cranial nerves, sensation and strength grossly intact. Pupils round, equal, and react to light, EOMs are full. On board recommend no driving for at least 6 months 3 of seizure #. Chronic pain: pain meds were on hold due to drowsiness/lethargy in the setting of renal failure Patient has been asking for his pain meds Case discussed with pain management to start the lowest dose possible narcotic Continue oxycodone 5 mg twice daily as needed Continue monitor closely #. Depression: Lexapro held due to drowsiness, refer to above #. History of chronic obstructive pulmonary disease: Continue home inhalers. DVT prophylaxis: Heparin SQ on hold due to +FOBT and Low hgb Disposition Waiting for placement to rehab If pt does not approve to [facility], will discharge home with home home health Admission and Anticipated Discharge Date Admission Date: February 14, 2021 Subjective Pt was seen and examined for follow up anemia Sitting in bed with no acute distress Pt said that he feels fine. He was looking forward to go to rehab Denies any chest pain, palpitation, dizziness and SOB Review of Systems Review of Systems: All systems reviewed & are unremarkable except as noted in Subjective Physical Exam Physical Exam: General- No acute distress Head- atraumatic Eyes- PERRL, EOMI, ENT- oropharynx clear Neck- supple, no JVD Lungs- clear to auscultation Heart- regular rhythm; no murmur Abdomen- normal bowel sounds, soft, nontender Extremities- no calf tenderness Neuro- alert, oriented,; PERRL, EOMI; no facial palsy; no dysarthria Skin- warm & dry Results & Data Results & Data ([facility]) Vital Signs (Past 12 Hours) Vital Signs Temp Pulse Pulse Resp BP BP Pulse Ox 02/28/21 18:40 36.6 C 72 20 166/85 H 97 02/28/21 16:04 36.2 C L 94 H 20 158/76 H 97 02/28/21 14:54 92 H 02/28/21 11:14 36.9 C 85 18 138/72 96 (1) Nausea & vomiting Vomiting Intractability: non-intractable Vomiting type: unspecified Qualified Code(s): R11.2 - Nausea with vomiting, unspecified (2) Acute on chronic renal failure Chronic kidney disease stage: stage 4 (severe)
[2021-03-01] MEDS: oxyCODONE HCL IR 5 MG TAB (IMMEDIATE RELEASE) PO PRN ×2 (01:49→14:01)
[2021-03-01] MEDS: METOCLOPRAMIDE HCL INJ 5 MG/ML 2 ML VIAL IV SCH ×2 (01:50→08:22)
[2021-03-01] MEDS: LORazepam 0.5 MG TAB PO PRN ×3 (01:50→20:36)
[2021-03-01] MEDS: hydrALAZINE HCL 20 MG/ML VIAL IV PRN ×2 (04:29→12:45)
[2021-03-01] MEDS ORDERED: ACETAMINOPHEN 1000 MG/100 ML IV IV ONE ×2 (04:47→04:49)
[2021-03-01 05:17] LABS: Hematocrit (blood only) 25.3 % (42-52); Hemoglobin 8.3 g/dL (14.0-18.0); Mean Corpuscular Hemoglobin 29.2 pg (25-34); Mean Corpuscular Hgb Conc 32.8 g/dL (32-36); Mean Corpuscular Volume 89.1 fL (80-100); Platelet Count 271 K/uL (130-400); RDW Coefficient of Variation 14.9 % (11.5-14.5); Red Blood Count 2.84 M/uL (4.7-6.1)
[2021-03-01 05:46] LABS: BUN Creatinine Ratio 8.9 (10-20); Calcium 7.4 mg/dl (8.5-10.1); Creatinine Clr Calc Pharmacy 26.5 ml/min; Est GFR (African American) 25.4 ml/min; Est GFR (Non-African American) 21.9 ml/min
[2021-03-01] MEDS: levETIRAcetam 500 MG TAB PO SCH ×2 (08:19→20:33)
[2021-03-01] MEDS: ADVANCED PROBIOTIC 1250 MG CAPSULE PO SCH ×2 (08:19→20:33)
[2021-03-01] MEDS: PANTOprazole 40 MG TAB PO SCH ×2 (08:19→20:33)
[2021-03-01] MEDS: CHECK CLONIDINE PATCH PLACEMENT SCH ×3 (08:19→23:26)
[2021-03-01] MEDS: FERROUS SULFATE 325 MG TAB PO SCH ×2 (08:19→17:15)
[2021-03-01] MEDS: SUCRALFATE 1 GM/10 ML UDC PO SCH ×4 (08:19→20:34)
[2021-03-01] MEDS: amLODIPine BESYLATE 5 MG TAB PO SCH (08:19)
[2021-03-01] MEDS: MULTIVITAMIN TAB PO SCH (08:19)
[2021-03-01] MEDS: INSULIN GLARGINE SOLOSTAR 100 UNITS/ML 3 ML PEN SQ SCH ×2 (08:20→20:56)
[2021-03-01] MEDS: INSULIN ASPART 100 UNITS/ML 3 ML PEN SC SCH ×4 (08:24→20:57)
[2021-03-01] MEDS: FLUTICASONE/VILANTEROL 200/25MCG 14 PUFFS/INHALER INH SCH (09:26)
--- NOTE | 2021-03-01 15:14 | Hospitalist Progress Note ---
Date of Service March 01, 2021 Assessment & Plan (1) Gastroparesis: (2) Nausea & vomiting: (3) Acute on chronic renal failure: (4) Somnolence: Plan: per Dr. Pavon's notes with addendum: 55-year-old male with NSCC of lung stage III s/p surgery and incomplete chemo secondary to intolerance, COPD, ulcerative colitis, type I DM with complication [gastroparesis, PDN], chronic pain on narcotics, HTN, past tobacco abuse, CKD [baseline around 2.5-3], chronic anemia and seizure disorder came in 02/12 with chief complaint of abdominal pain associated with nausea and vomiting. Is being managed for the following: #. Nausea and vomiting: Secondary to worsening gastroparesis and severe esophagitis complicated by increased pain medication requirement. H/o gastroparesis,and gastric pacemaker. Also on narcotics for chronic pain. Presented with nausea, vomiting and diarrhea Per patient, he recently visited his motilitist in [facility] and his gastric pacer was tweaked. GI consulted: Increase the Reglan dose to 3 times daily. Per patient, patient is scheduled for upper scope and possible dilation in [facility] on February 22. CT abd/pelvis showed no acute infectious or inflammatory findings are identified in the abdomen or pelvis. Clinically improved significantly 03/01 tolerating diet well change Reglan TID to PO #. anemia: Acute blood loss anemia Positive FOBT Hemoglobin dropped to 6.9 today Transfused 1 unit PRBC Repeat H/H showed 6.8, transfused an additional 1 unit PRBC S/P EGD show normal esophagus. Distal esophageal ulcer that appeared clean based but a few with erythema Hemoglobin 8 today IV PPI drip transition to p.o. PPI twice daily Type a crossed and received an additional 1 L PRBC yesterday( received a total of 2 units PRBC during hospital course) Diet advance to low fiber as tolerated GI was notified, no plan to repeat EGD since pt just had one done on 02/23 Continue monitor H/H 03/01 Hg 8.3 no signs of bleeding Aspiration Pneumonia Hypoxic Respiratory Failure CT showed patchy groundglass opacities are seen at the right lung base. -- off Bipap, off oxygen -- blood cultures and urine cx negative -- Completed the course of abx with Cefepime + Clindamycin 03/01 respiratory status stable #. IVAN over Chronic kidney disease stage III: His baseline creatinine used to be 2.5-3 according to his recent labs, Creatinine peaked to 4, creatinine 2.7 today Nephrology on board Case discussed with nephrology Check BMP in hemoglobin weekly until next follow-up appointment with nephrology Follow-up with nephrology in 2 to [address] Barajas in [facility] From nephrology standpoint to discharge 03/01 Crea 3.05 monitor closely #. Hypertensive urgency: Presented with blood pressure of 164/94 Patient reports that he has always had high blood pressure Blood pressure currently fairly under control continue with home meds Use as needed IV medications per protocol. Follow-up with PCP for reevaluation and dose adjustment as appropriate upon discharge Nephrology on board As per nephrology no need to treat elevated BP since BP when standing drops The very labile pattern of his HTN is very classic for Diabetic neuropathy . need to check his standing BP before giving PRN meds. if not possible to stand due to weakness, then rather ignore than overtreat and cause problem. Continue monitor BP 03/01 BP elevated this afternoon asymptomatic Hydralazine 10mg BID with holding parameters # Altered mental status Toxic metabolic encephalopathy Likely secondary to narcotic in the setting of acute renal failure --Patient's usual MS Contin, oxycodone, gabapentin, Lexapro, Keppra renally dosed However patient continued to be drowsy Bottle of oxycodone found in patient's back, but patient denies using this well admitted --Currently, MS Contin, oxycodone, gabapentin, Lexapro on hold Psych, pain management, neurologist consulted Follow recommendations regarding restarting above meds carefully case discussed with neuro and recommended no need to get EEG and MRI since mental status improves Resolved 03/01 back to baseline resume Lexapro tomorrow, but reduce to 5mg daily hold Gabapentin, MS Contin #. Type 1 diabetes: His recent HbA1c was 7.4%. Continue his long-acting insulin sliding scale. consulted pharmacy glycemic control consult #. Non-small cell lung cancer, stage III, status post surgery, incomplete chemotherapy secondary to tolerance. Needs to follow up with PCP and oncologist. Patient aware. #. History of seizure disorder, --Usually on Keppra BID No NEUROLOGICAL: Alert, oriented, and cooperative. Cranial nerves, sensation and strength grossly intact. Pupils round, equal, and react to light, EOMs are full. On board recommend no driving for at least 6 months 3 of seizure #. Chronic pain: pain meds were on hold due to drowsiness/lethargy in the setting of renal failure Patient has been asking for his pain meds Case discussed with pain management to start the lowest dose possible narcotic Continue oxycodone 5 mg twice daily as needed Continue monitor closely 03/01 pain adequately controlled #. Depression: Lexapro held due to drowsiness, refer to above #. History of chronic obstructive pulmonary disease: Continue home inhalers. DVT prophylaxis: Heparin SQ on hold due to +FOBT and Low hgb Disposition possible d/c to [facility] tomorrow when BP stable Admission and Anticipated Discharge Date Admission Date: February 14, 2021 Subjective ff up for gastroparesis, acute renal failure, etc seen resting in bed, sleeping but easily awakened states he feels improved overall, but still weak has some mild abdominal discomfort, but no nausea, tolerating diet well, able to finish his meal trays and has snacks in between no chest pain, dyspnea, palpitations, dizziness no headache no other symptoms Review of Systems Review of Systems: all noted and negative except for above Physical Exam Physical Exam: General- oriented x 3, not in distress, speaks in sentences with no effort or accessory muscle use somewhat weak but conversant Head- atraumatic Eyes- PERRL, EOMI, anicteric ENT- oropharynx clear Neck- supple, no JVD, no adenopathy, no thyromegaly; carotids +2/2, no bruits appreciated Lungs- clear to auscultation bilaterally, no rales/wheezes Heart- normal rate, regular rhythm; no murmur, no gallop, no rub appreciated Abdomen- normal bowel sounds, nondistended, soft, nontender, no masses or hepatosplenomegaly Extremities- no pretibial edema, no calf tenderness; peripheral pulses intact Neuro- alert, oriented x 3; CN 2-12 grossly intact; motor 5/5 bilaterally;sensation 100% on all extremities; no other gross focal neurologic deficits Skin- warm & dry Results & Data Results & Data ([facility]) Vital Signs (Past 12 Hours) Vital Signs Temp Pulse Pulse Resp BP BP Pulse Ox 03/01/21 12:35 189/86 H 03/01/21 10:53 36.8 C 95 H 18 168/88 H 97 03/01/21 07:31 90 03/01/21 06:58 36.8 C 91 H 20 155/78 H 96 03/01/21 03:20 36.8 C 91 H 20 183/90 H 98 all noted and reviewed including below (1) Nausea & vomiting Vomiting Intractability: non-intractable Vomiting type: unspecified Qualified Code(s): R11.2 - Nausea with vomiting, unspecified (2) Acute on chronic renal failure Chronic kidney disease stage: stage 4 (severe)
[2021-03-01] MEDS: hydrALAZINE 10 MG TAB PO SCH (20:32)
[2021-03-01] MEDS: METOCLOPRAMIDE HCL 5 MG TABLET PO SCH (20:34)
[2021-03-01] MEDS ORDERED: oxyCODONE HCL IR 5 MG TAB (IMMEDIATE RELEASE) PO PRN (20:55)
[2021-03-02] MEDS: METOCLOPRAMIDE HCL 5 MG TABLET PO SCH (05:52)
[2021-03-02] MEDS: LORazepam 0.5 MG TAB PO PRN (05:55)
[2021-03-02] MEDS: levETIRAcetam 500 MG TAB PO SCH (08:08)
[2021-03-02] MEDS: PANTOprazole 40 MG TAB PO SCH (08:08)
[2021-03-02] MEDS: ADVANCED PROBIOTIC 1250 MG CAPSULE PO SCH (08:09)
[2021-03-02] MEDS: FERROUS SULFATE 325 MG TAB PO SCH (08:09)
[2021-03-02] MEDS: amLODIPine BESYLATE 5 MG TAB PO SCH (08:09)
[2021-03-02] MEDS: SUCRALFATE 1 GM/10 ML UDC PO SCH (08:09)
[2021-03-02] MEDS: hydrALAZINE 10 MG TAB PO SCH (08:09)
[2021-03-02] MEDS: MULTIVITAMIN TAB PO SCH (08:09)
[2021-03-02] MEDS: INSULIN ASPART 100 UNITS/ML 3 ML PEN SC SCH (08:10)
[2021-03-02] MEDS: INSULIN GLARGINE SOLOSTAR 100 UNITS/ML 3 ML PEN SQ SCH (08:10)
[2021-03-02] MEDS: FLUTICASONE/VILANTEROL 200/25MCG 14 PUFFS/INHALER INH SCH (08:10)
[2021-03-02] MEDS: CHECK CLONIDINE PATCH PLACEMENT SCH (08:13)
[2021-03-02] MEDS: ESCITALOPRAM OXALATE 10 MG TAB PO SCH (10:28)
--- NOTE | 2021-03-02 12:13 | Hospitalist Progress Note ---
Date of Service March 02, 2021 Assessment & Plan (1) Gastroparesis: (2) Nausea & vomiting: (3) Acute on chronic renal failure: (4) Somnolence: Plan: per Dr. Pavon's notes with addendum: 55-year-old male with NSCC of lung stage III s/p surgery and incomplete chemo secondary to intolerance, COPD, ulcerative colitis, type I DM with complication, chronic pain on narcotics, HTN, past tobacco abuse, CKD [baseline around 2.5-3], chronic anemia and seizure disorder came in 02/12 with chief complaint of abdominal pain associated with nausea and vomiting. Is being managed for the following: #. Nausea and vomiting: Secondary to worsening gastroparesis and severe esophagitis complicated by increased pain medication requirement. H/o gastroparesis,and gastric pacemaker. Also on narcotics for chronic pain. Presented with nausea, vomiting and diarrhea Per patient, he recently visited his motilitist in [facility] and his gastric pacer was tweaked. GI consulted: Increase the Reglan dose to 3 times daily. Per patient, patient is scheduled for upper scope and possible dilation in [facility] on February 22. CT abd/pelvis showed no acute infectious or inflammatory findings are identified in the abdomen or pelvis. clinically improved tolerating diet well continue Reglan TID as per GI service recommendations ff up with GI as scheduled #. Anemia, likely Upper GI bleed secondary to Esophageal Ulcer Acute blood loss anemia Positive FOBT Hemoglobin dropped to 6.9 Transfused 1 unit PRBC Repeat H/H showed 6.8, transfused an additional 1 unit PRBC S/P EGD show normal esophagus. Distal esophageal ulcer that appeared clean based but a few with erythema IV PPI drip transition to p.o. PPI twice daily Hg 8.3 no signs of bleeding continue Protonix 40mg BID ff up with GI as scheduled monitor CBC weekly Aspiration Pneumonia Hypoxic Respiratory Failure CT showed patchy groundglass opacities are seen at the right lung base. -- off Bipap, off oxygen -- blood cultures and urine cx negative -- Completed the course of abx with Cefepime + Clindamycin respiratory status stable #. IVAN over Chronic kidney disease stage III: His baseline creatinine used to be 2.5-3 according to his recent labs, Creatinine peaked to 4 gradually improved 2.7 to 3.0 Nephrology on board Case discussed with nephrology Check BMP in hemoglobin weekly until next follow-up appointment with nephrology Follow-up with nephrology in [address] Barajas in [facility] From nephrology standpoint to discharge #. Hypertensive urgency: Presented with blood pressure of 164/94 Patient reports that he has always had high blood pressure Blood pressure currently fairly under control continue with home meds Use as needed IV medications per protocol. Follow-up with PCP for reevaluation and dose adjustment as appropriate upon discharge Nephrology on board As per nephrology no need to treat elevated BP since BP when standing drops The very labile pattern of his HTN is very classic for Diabetic neuropathy . need to check his standing BP before giving PRN meds. if not possible to stand due to weakness, then rather ignore than overtreat and cause problem. asymptomatic Hydralazine 10mg BID added with holding parameters Continue monitor BP closely # Altered mental status Toxic metabolic encephalopathy Likely secondary to narcotic in the setting of acute renal failure --Patient's usual MS Contin, oxycodone, gabapentin, Lexapro, Keppra renally dosed However patient continued to be drowsy Bottle of oxycodone found in patient's back, but patient denies using this well admitted -- Psych, pain management, neurologist consulted case discussed with neuro and recommended no need to get EEG and MRI since men radha status improves Resolved back to baseline resumed Lexapro tomorrow, reduced to 5mg daily hold Gabapentin, MS Contin continue to monitor closely monitor EKG, and QT interval as patient is on Reglan and Lexapro #. Type 1 diabetes: His recent HbA1c was 7.4%. Continue his long-acting insulin sliding scale. consulted pharmacy glycemic control consult #. Non-small cell lung cancer, stage III, status post surgery, incomplete chemotherapy secondary to tolerance. Needs to follow up with PCP and oncologist. Patient aware. #. History of seizure disorder, -- Keppra reduced from 750mg bid to 500mg bid in light of renal function -- monitor #. Chronic pain: hold Gabapentin, MS Contin Continue oxycodone 5 mg twice daily as needed Continue monitor closely pain adequately controlled #. Depression: Lexapro reduced in light of decrease in renal function #. History of chronic obstructive pulmonary disease: Continue home inhalers. DVT prophylaxis: Heparin SQ on hold due to +FOBT and Low hgb Disposition d/c to [facility] ff up with [employer] Dr. Barajas in 2-4 weeks ff up with GI in 2-3 weeks plan of care discussed with patient in detail and at length all questions answered he is understanding, agreeable, comfortable with the plan of care Admission and Anticipated Discharge Date Admission Date: February 14, 2021 Subjective ff up for gastroparesis, etc seen sitting up in bed, comfortable in good spirits smiling states he feels much better overall and that he is ready for discharge no abdominal pain, no nausea/vomiting tolerating diet well no chest pain, dyspnea, palpitations, dizziness no melena/hematochezia no other symptoms Review of Systems Review of Systems: all noted and negative except for above Physical Exam Physical Exam: General- oriented x 3, not in distress, speaks in sentences with no effort or accessory muscle use Eyes- anicteric Neck- no JVD Lungs- clear breath sounds bilaterally, no rales/wheezes Heart- normal rate, regular rhythm; no murmurs Abdomen- normal bowel sounds, nondistended, soft, nontender Extremities- no pretibial edema, no calf tenderness Neuro- alert, oriented x 3; no gross focal neurologic deficits Skin- warm & dry Results & Data Results & Data ([facility]) Vital Signs (Past 12 Hours) Vital Signs Temp Pulse Pulse Resp BP BP Pulse Ox 03/02/21 12:03 36.3 C L 90 20 200/104 H 96 03/02/21 11:47 36.7 C 89 18 151/80 H 96 03/02/21 11:37 36.6 C 81 16 138/71 96 03/02/21 11:34 82 111/55 L 03/02/21 10:22 36.9 C 84 18 165/90 H 144/71 H 96 03/02/21 07:38 88 03/02/21 07:31 36.9 C 84 18 165/90 H 96 03/02/21 04:00 36.7 C 88 18 144/71 H 96 03/02/21 01:17 96 H all noted and reviewed including below (1) Nausea & vomiting Vomiting Intractability: non-intractable Vomiting type: unspecified Yared lified Code(s): R11.2 - Nausea with vomiting, unspecified (2) Acute on chronic renal failure Chronic kidney disease stage: stage 4 (severe)
--- NOTE | 2021-03-02 12:16 | Discharge Summary ---
Date of Service March 02, 2021 Admission HPI Per Admitting Provider 55 yo male who has been hospitalized, GI consulted again for dark stool and drop in hgb. Receiving blood this am. S/p central line in right upper chest yesterday. No overt bleeding or hematochezia. Last EGD in 01/24 with grade c esophagitis. No other acute complaints. Admission Exam (Per Admitting) Constitutional GENERAL: uncomfortable, no respiratory distress, lying down on the left lateral decubitus position SKIN: Pallor, warm HEENT: Partial alopecia, pale palpebral conjunctivae, no ptosis, dry buccal mucosa NECK : Supple, no tenderness CHEST : Decreased breath sounds, no tenderness HEART : RRR, no obvious murmurs ABDOMEN: Some distention, central abdominal tenderness EXTREMITIES : No LE swelling/tenderness, no other conspicuous deformities noted NEUROLOGIC : Coherent, no facial asymmetry, no other gross focality Discharge Data Consultations 02/12/21 01:07 ED Decision to Admit Stat 02/12/21 03:04 Consult Gastroenterology Routine 02/14/21 13:03 Consult Nephrology Routine 02/20/21 15:40 Consult Pain Management Routine Consult Psychiatry Routine 02/21/21 08:08 Consult Neurology Routine 02/23/21 06:21 Consult Utilization Management Rn Routine Procedures Performed Operation Date: 02/23/21 16:00 Actual Procedures p Esophagogastroduodenoscopy - Malia James MD DICTATED BY:Malia James MD Patient Name: Jeff Hamilton Procedure Date: 02/23/2021 10:37 AM Date of : 1965 Admit Type: Inpatient Age: 55 Gender: Male Attending MD: Malia James M.d. Procedure: Upper GI endoscopy Providers: Malia James M.d. Referring MD: SILKE PAVON Indications: Melena Medicines: Anesthesia Complications: No immediate complications. Estimated Blood Loss: Estimated blood loss: none. Procedure: Pre-Anesthesia Assessment: - Patient identification and proposed procedure were verified prior to the procedure by the physician, the nurse and the anesthesiologist. The procedure was verified in the pre-procedure area. - Prior to the procedure, a History and Physical was performed, and patient medications, allergies and sensitivities were reviewed. The patient's tolerance of previous anesthesia was reviewed. - The risks and benefits of the procedure and the sedation options and risks were discussed with the patient. All questions were answered and informed consent was obtained. After obtaining informed consent, the endoscope was passed under direct vision. Throughout the procedure, the patient's blood pressure, pulse, and oxygen saturations were monitored continuously. The Endoscope was introduced through the mouth, and advanced to the second part of duodenum. The upper GI endoscopy was accomplished without difficulty. The patient tolerated the procedure well. Findings: The examined esophagus appeared normal. LA Grade D (one or more mucosal breaks involving at least 75% of esophageal circumference) esophagitis with faint evidence of bleeding was found. Superficial distal esophageal ulceration was noted in the distal esophagus. Retained fluid with hematin was found in the examined stomach and suctioned without evidence of ulceration or inflammation in the examined stomach. The duodenal bulb and second portion of the duodenum appeared normal without evidence of ulceration or inflammation in the examined duodenum. Impression: - Normal esophagus. - LA Grade D esophagitis. - Distal esophageal ulcers that appeared clean based but a few with erythema. - Retained fluid with hematin in the examined stomach. - Normal duodenal bulb and second portion of the duodenum. Recommendation: - Return to floor. - IV PPI drip for 24-48 hours. - If no further bleeding today, consider clear liquids later today. - Avoid NSAID's. Malia James M.D. Malia James M.d. 02/23/2021 11:10:43 AM This report has been signed electronically. Note Initiated On: 02/23/2021 10:[address] SCAN OF THE ABDOMEN AND PELVIS WITHOUT IV CONTRAST CLINICAL HISTORY: Generalized abdominal pain. GI bleeding. COMPARISON STUDY: Abdominal CT dated 02/03/2021. TECHNIQUE: CT scan of the abdomen and pelvis is performed from the lung bases to the proximal femora. Images are reviewed in the axial, sagittal, and coronal planes. IV contrast was not administered for this examination. A dose lowering technique was utilized adhering to the principles of ALARA. Note that the examination was performed in suboptimal fashion without oral and IV contrast. CT DOSE: 373.21 mGy.cm FINDINGS: Lung bases: The heart is normal in size and without pericardial effusion. The coronary arteries are densely calcified. Emphysematous changes suspected. Patchy airspace opacities are noted at the right lung base. Blunting loss in the left lung suggests previous surgical resection.. There is trace pleural fluid at the left lung base. Circumferential wall thickening is noted in the distal esophagus and there is a small hiatal hernia. Liver: The unenhanced liver is normal in size, contour, and attenuation. There is no intrahepatic biliary ductal dilatation. Gallbladder: Surgically absent noting clips in the gallbladder fossa. Spleen: Normal in size and attenuation. Pancreas: Unremarkable. Adrenal glands: A 1.8 cm right adrenal adenoma is unchanged. The left adrenal gland is normal as imaged. Kidneys: The unenhanced kidneys are normal in size and without hydronephrosis. There are no renal calculi identified. There is no evidence of contour deforming renal mass lesion. Abdominal vasculature: The abdominal aorta is normal in course and caliber noting mild atherosclerotic calcification. Bowel: An electronic device is present in the left lower quadrant abdominal wall with leads extending to the stomach. There is no bowel obstruction. The appendix is not visualized. Peritoneum: There is no intraperitoneal free air or abdominal ascites. Lymphadenopathy: None. Pelvic viscera: The bladder is markedly distended but otherwise normal as imaged. The prostate and seminal vesicles are normal as visualized. Skeletal structures: There is mild to moderate lumbosacral spondylosis. Permeative destructive change is seen in the left lateral ninth rib. IMPRESSION: 1. Suboptimal examination without oral and IV contrast. 2. No acute infectious or inflammatory findings are identified in the abdomen or pelvis. 3. Marked bladder distention. 4. Patchy groundglass opacities are seen at the right lung base. Correlate clinically for evidence of a mild infectious/inflammatory pneumonitis. 5. Suspect emphysema, and findings suggest previous left-sided pulmonary resection. Clinical correlation will be required. 6. Circumferential wall thickening is seen in the distal esophagus. Correlate clinically for evidence of esophagitis. This can be further assessed with endoscopy if clinically warranted. 7. Permeative destructive change in the left lateral 9th rib is suspicious for osseous metastatic disease. Correlation with the patient's medical/oncological history will be required. 8. Additional findings as above. ACT 112: Negative or not required by law. Hospital Course (1) Gastroparesis: (2) Nausea & vomiting: (3) Acute on chronic renal failure: (4) Somnolence: per Dr. Pavon's notes with addendum: 55-year-old male with NSCC of lung stage III s/p surgery and incomplete chemo secondary to intolerance, COPD, ulcerative colitis, type I DM with complication, chronic pain on narcotics, HTN, past tobacco abuse, CKD [baseline around 2.5-3], chronic anemia and seizure disorder came in 02/12 with chief complaint of abdominal pain associated with nausea and vomiting. Is being managed for the following: #. Nausea and vomiting: Secondary to worsening gastroparesis and severe esophagitis complicated by increased pain medication requirement. H/o gastroparesis,and gastric pacemaker. Also on narcotics for chronic pain. Presented with nausea, vomiting and diarrhea Per patient, he recently visited his motilitist in [facility] and his gastric pacer was tweaked. GI consulted: Increase the Reglan dose to 3 times daily. Per patient, patient is scheduled for upper scope and possible dilation in [facility] on February 22. CT abd/pelvis showed no acute infectious or inflammatory findings are identified in the abdomen or pelvis. clinically improved tolerating diet well continue Reglan TID as per GI service recommendations ff up with GI as scheduled #. Anemia, likely Upper GI bleed secondary to Esophageal Ulcer Acute blood loss anemia Positive FOBT Hemoglobin dropped to 6.9 Transfused 1 unit PRBC Repeat H/H showed 6.8, transfused an additional 1 unit PRBC S/P EGD show normal esophagus. Distal esophageal ulcer that appeared clean based but a few with erythema IV PPI drip transition to p.o. PPI twice daily Hg 8.3 no signs of bleeding continue Protonix 40mg BID ff up with GI as scheduled monitor CBC weekly Aspiration Pneumonia Hypoxic Respiratory Failure CT showed patchy groundglass opacities are seen at the right lung base. -- off Bipap, off oxygen -- blood cultures and urine cx negative -- Completed the course of abx with Cefepime + Clindamycin respiratory status stable #. IVAN over Chronic kidney disease stage III: His baseline creatinine used to be 2.5-3 according to his recent labs, Creatinine peaked to 4 gradually improved 2.7 to 3.0 Nephrology on board Case discussed with nephrology Check BMP in hemoglobin weekly until next follow-up appointment with nephrology Follow-up with nephrology in [address] Barajas in [facility] From nephrology standpoint to discharge #. Hypertensive urgency: Presented with blood pressure of 164/94 Patient reports that he has always had high blood pressure Blood pressure currently fairly under control continue with home meds Use as needed IV medications per protocol. Follow-up with PCP for reevaluation and dose adjustment as appropriate upon discharge Nephrology on board As per nephrology no need to treat elevated BP since BP when standing drops The very labile pattern of his HTN is very classic for Diabetic neuropathy . need to check his standing BP before giving PRN meds. if not possible to stand due to weakness, then rather ignore than overtreat and cause problem. asymptomatic Hydralazine 10mg BID added with holding parameters Continue monitor BP closely # Altered mental status Toxic metabolic encephalopathy Likely secondary to narcotic in the setting of acute renal failure --Patient's usual MS Contin, oxycodone, gabapentin, Lexapro, Keppra renally dosed However patient continued to be drowsy Bottle of oxycodone found in patient's back, but patient denies using this well admitted -- Psych, pain management, neurologist consulted case discussed with neuro and recommended no need to get EEG and MRI since mental status improves Resolved back to baseline resumed Lexapro tomorrow, reduced to 5mg daily hold Gabapentin, MS Contin continue to monitor closely monitor EKG, and QT interval as patient is on Reglan and Lexapro #. Type 1 diabetes: His recent HbA1c was 7.4%. Continue his long-acting insulin sliding scale. consulted pharmacy glycemic control consult #. Non-small cell lung cancer, stage III, status post surgery, incomplete chemotherapy secondary to tolerance. Needs to follow up with PCP and oncologist. Patient aware. #. History of seizure disorder, -- Keppra reduced from 750mg bid to 500mg bid in light of renal function -- monitor #. Chronic pain: hold Gabapentin, MS Contin Continue oxycodone 5 mg twice daily as needed Continue monitor closely pain adequately controlled #. Depression: Lexapro reduced in light of decrease in renal function #. History of chronic obstructive pulmonary disease: Continue home inhalers. DVT prophylaxis: Heparin SQ on hold due to +FOBT and Low hgb Disposition d/c to [facility] ff up with [facility] Dr. Barajas in 2-4 weeks ff up with GI in 2-3 weeks plan of care discussed with patient in detail and at length all questions answered he is understanding, agreeable, comfortable with the plan of care
== END 2021-03-02 12:35 | DRG 73 ==
LOC: EDINP 20:14 → ED 20:14 → EDINP 02-12 11:52 → 2S 02-12 11:58 → SUATTDRO 02-14 14:30 → 2S 02-20 22:07 → 2N 02-25 22:21

== ENCOUNTER 2021-06-30 16:35 | Inpatient (IN) ==
[2021-06-30 18:10] LABS: Basophils # (auto) 0.02 K/uL (0-0.2); Basophils % (auto) 0.2 %; Eosinophils # (auto) 0.18 K/uL (0-0.5); Eosinophils % (auto) 2.2 %; Hematocrit (blood only) 30.3 % (42-52); Hemoglobin 9.7 g/dL (14.0-18.0); Lymphocytes # (auto) 0.95 K/uL (1.2-3.4); Lymphocytes % (auto) 11.5 %; Mean Corpuscular Hemoglobin 28.7 pg (25-34); Mean Corpuscular Volume 89.6 fL (80-100); Mean Platelet Volume 11.4 fL (7.4-10.4); Monocytes % (auto) 7.3 %; Neutrophils % (auto) 78.8 %; Platelet Count 240 K/uL (130-400); Red Blood Count 3.38 M/uL (4.7-6.1); White Blood Count 8.25 K/uL (4.8-10.8)
[2021-06-30 18:20] LABS: Partial Thromboplastin Time 26.5 Seconds (21.0-31.0); Prothrombin Time 9.8 Seconds (9.0-12.0)
[2021-06-30] MEDS ORDERED: ONDANSETRON INJ 2 MG/ML 2 ML VIAL IV STA (18:31)
[2021-06-30] MEDS ORDERED: SODIUM CHLORIDE 0.9% 1000ML 1,000 ML IV ONE ×2 (18:31→21:49)
[2021-06-30 18:32] LABS: Albumin Level 3.2 gm/dl (3.4-5.0); BUN Creatinine Ratio 6.5 (10-20); Bilirubin,Total 0.3 mg/dl (0.2-1.0); Calcium 7.1 mg/dl (8.5-10.1); Creatinine Clr Calc Pharmacy 13.1 ml/min; Est GFR (African American) 10.9 ml/min; Est GFR (Non-African American) 9.4 ml/min; Globulin 3.2 gm/dl (2.5-4.0); Potassium 3.9 mmol/L (3.5-5.1); Total Protein 6.4 gm/dl (6.0-8.3)
--- NOTE | 2021-06-30 18:37 | Emergency Department Note ---
History of Present Illness General Chief complaint: Shortness of Breath/Dyspnea Stated complaint: NAUSEA, VOMITING, SHORT OF BREATH Time Seen by Provider: 06/30/21 18:19 Source: patient Mode of arrival: ambulatory Limitations: no limitations History of Present Illness Maximum Pain Intensity: 6 This patient is a 55-year-old male who has a history of diabetes as well as gastroparesis comes in after nausea vomiting for last 4 days he feels short of breath at x2 he said his vision was little blurry today as well. His blood sugars been up and down with the last blood sugar at 76 he has had a cough with yellow phlegm he is a fever up to 102 last night he did of the Covid vaccine but no booster no exposure. He has no chest pain except for when he has trouble breathing occasionally. He says he is been vomiting so much occasionally is red streaks and coffee grounds. He is also had diarrhea without blood or melena. He tried Zofran at home. He has some burning in his throat as well diffuse abdominal pain because of the nausea but no focal tenderness no rash. No fall or trauma. Home Medications Medication Instructions Recorded Confirmed Type albuterol sulfate 90 mcg/actuation 2 puff INHALATION Q4H PRN 05/05/18 06/30/21 History aerosol inhaler (Ventolin HFA) epinephrine 0.3 mg/0.3 mL 0.3 mg IM Q3H PRN 05/05/18 06/30/21 History injection, auto-injector (EpiPen) fluticasone 250 mcg-salmeterol 50 1 inh INHALATION BID 01/24/20 06/30/21 History mcg/dose blistr powdr for inhalation (Wixela Inhub) amlodipine 5 mg tablet (Norvasc) 10 mg PO QAM tab 04/26/21 06/30/21 History blood sugar diagnostic 04/26/21 06/30/21 History flash glucose sensor (FreeStyle 04/26/21 06/30/21 History Amparo 14 Day Sensor) gabapentin 400 mg capsule 400 mg PO TID 04/26/21 06/30/21 History glucagon 1 mg solution for 1 mg IM ONCE PRN ea 04/26/21 06/30/21 History injection insulin glargine 100 unit/mL (3 7 unit SUBCUT QPM ml 04/26/21 06/30/21 History mL) subcutaneous pen (Lantus Solostar U-100 Insulin) insulin lispro 100 unit/mL 1 sliding scale dose SUBCUT 04/26/21 06/30/21 History subcutaneous solution (Humalog USEASDIRECTD U-100 Insulin) levetiracetam 750 mg tablet 750 mg PO BID 04/26/21 06/30/21 History (Keppra) lisinopril 40 mg tablet 20 mg PO DAILY 04/26/21 06/30/21 History meclizine 12.5 mg tablet 12.5 mg PO TID PRN 04/26/21 06/30/21 History metoclopramide HCl 10 mg tablet 10 mg PO TID tab 04/26/21 06/30/21 History (Reglan) omeprazole 40 mg capsule,delayed 40 mg PO DAILY 04/26/21 06/30/21 History release ondansetron HCl 4 mg tablet 4 mg PO Q8H PRN 04/26/21 06/30/21 History (Zofran) oxycodone 10 mg tablet 10 mg PO Q4H PRN 04/26/21 06/30/21 History rosuvastatin 20 mg tablet 20 mg PO DAILY 04/26/21 06/30/21 History amlodipine 10 mg tablet 10 mg PO DAILY 06/30/21 06/30/21 History clonidine 0.2 mg/24 hr weekly 0.2 mg TRANSDERMAL WK 06/30/21 06/30/21 History transdermal patch Allergies Allergy/AdvReac Type Severity Reaction Status Date / Time bee venom protein (honey bee) Allergy Mild SWELLING Verified 06/30/21 23:19 AT SITE, SOB Penicillins Allergy Unknown "SINCE Verified 06/30/21 23:19 "-Amoxicillin cat dander Allergy Unknown Verified 06/30/21 23:19 Past Med/Surg History Medical History Abdominal pain Abnormal finding on CT scan Acute dyspnea Acute hyponatremia Acute on chronic renal failure IVAN (acute kidney injury) Anemia Asymptomatic hypertensive urgency Chest pain No current chest pain...related to reflux per patient Chronic pain CKD (chronic kidney disease) stage 4, GFR 15-29 ml/min baseline creatinine 3 in fall 2020 w/ 1 gm proteinuria COPD (chronic obstructive pulmonary disease) Dehydration Diabetes mellitus type 2, uncontrolled Diabetic autonomic neuropathy Diabetic peripheral neuropathy Discharge planning issues DVT prophylaxis Elevated d-dimer Esophagitis Gastroparesis "s/p gastric stimulator" History of Crohn's disease HTN (hypertension) Hyperglycemia Hypertension Hypertensive crisis Hypoglycemia Hypomagnesemia Hypothermia Intractable nausea and vomiting Lab test negative for COVID-19 virus Cushing grade C esophagitis 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 One 1 mm polyp in the ascending colon resected. One benign appearing 1 mm polyp in the rectum resected. Internal hemorrhoids; Dr. Demarco" H/O esophagogastroduodenoscopy "01/26/2015- [place] Grade B reflux esophagitis, gastritis; Dr. Major" History of cholecystectomy History of tonsillectomy and adenoidectomy Hx of total knee arthroplasty S/P lobectomy of lung "left upper lobectomy for adenoCa" On 08/05/16 16:30 Edie Mcfarland wrote "L side @ [facility] 05/25/16" Status post insertion of intrathecal pump explanted Family History Mother Diabetes Dementia Father Hypertension Diabetes Sister Crohn's disease Other Family history non-contributory Social History Smoking Status: Former smoker Tobacco Type: Cigarettes Second Hand Exposure: No; Hx Alcohol Use: No Hx Substance Use: Yes Last Used Substance: Just Prior to Arrival Last Used Substance Other:: Four hours ago Substance Use Type Other:: Currenlty denies Preferred Language: Arabic Communication Ability: Effective Visual Impairment: No Limitations Computer Service Technician Required: No Beliefs That Will Affect Care: None marital status: Single Current Living Situation: Alone Current Living Situation Comment: has family close by and available to assist current occupational status: disabled How many Children do You have: 5 Feels Safe at Home: Yes Diet Comment: Carb counting caffeine: No Physical Activity Frequency: Does not Exercise Physical Activity Frequency Comment: walks when able Assistive Devices: Walker Review of Systems A total of 10 systems reviewed and were otherwise negative Physical Exam Vital Signs Vital Signs - 24 hr 06/30/21 17:19 06/30/21 21:18 Temperature 36.7 C Temperature Source Temporal Artery Scan Pulse Rate 97 H Pulse Rate [Apical] 87 Pulse Rhythm [Apical] Regular Respiratory Rate 14 20 Respiratory Effort / Characteristics Non-Labored Spontaneous Non-Labored Respiratory Depth Normal Normal Respiratory Pattern Regular Regular Blood Pressure 190/107 H Blood Pressure [Right Arm] 174/111 H Blood Pressure Mean 134 Blood Pressure Mean [Right Arm] 132 Blood Pressure Position Sitting Blood Pressure Position [Right Arm] Lying Pulse Oximetry 97 97 Oxygen Delivery Method Room Air Room Air Sepsis Recent Fever Within 48 Hours No Sepsis New/Unexplained Change in Mental Status No Sepsis Action Taken by Nursing No Action Required General: Well developed well nourished middle-age male who appears in no acute distress, breathing comfortably on room air. Normal speech HEENT: Normal cephalic atraumatic. Pupils are equal round and reactive to light. Sclera anicteric. Extraocular movements are intact. Oropharynx is pink with moist mucous membranes. No swelling of the mouth lips or tongue. Neck: Supple with a midline trachea. No meningeal signs or stiffness, no JVD or bruits. No Stridor. Chest: Clear to auscultation bilaterally. No wheezes or rhonchi. No increased work of breathing. Heart: Regular rate and rhythm without murmurs or gallops. Abdomen: Soft nontender, nondistended without rebound guarding or rigidity. Extremities: No cyanosis clubbing or edema. No calf tenderness or assymetry Spine/Back. Non tender to palpation. No CVA tenderness Skin: Good turgor without rashes. Neurologic exam: Cranial nerves two through 12 are intact. Motor and sensation are intact and symmetrical throughout. Course Administered Medications Clonidine HCl (Clonidine Hcl 0.2 Mg/24 Hr Transderm Sys) 1 patch TD Fr@2200 DAMIR Stop: 07/30/21 21:59 Last Admin: 06/30/21 22:17 Dose: 1 patch Documented by: [id number] Magnesium Sulfate/Dextrose (Magnesium Sulfate / D5w) 1 gm in 100 mls @ 50 mls/hr IV Q2H DAMIR Stop: 07/01/21 01:59 Last Admin: 06/30/21 22:23 Dose: 50 mls/hr Documented by: [id number] Sodium Chloride (Nss 1000ml) 1,000 mls @ 75 mls/hr IV .[id number] ONE Stop: 07/01/21 11:08 Last Admin: 06/30/21 22:19 Dose: 75 mls/hr Documented by: [id number] Miscellaneous (Remove Clonidine Patch) 1 ea N/A Fr@2159 DAMIR Stop: 07/30/21 21:58 Last Admin: 06/30/21 22:17 Dose: 1 ea Documented by: [id number] Discontinued Medications Sodium Chloride (Nss 1000ml) 1,000 mls @ 999 mls/hr IV .[id number] ONE Stop: 06/30/21 19:31 Last Infusion: 06/30/21 20:42 Dose: 0 mls/hr Documented by: [id number] Admin: 06/30/21 19:29 Dose: 999 mls/hr Documented by: [id number] Pantoprazole Sodium 80 mg/ (Dextrose) 120 mls @ 400 mls/hr IV NOW ONE Stop: 06/30/21 21:02 Last Infusion: 06/30/21 21:28 Dose: 0 mls/hr Documented by: [id number] Admin: 06/30/21 21:10 Dose: 400 mls/hr Documented by: [id number] Ertapenem (Invanz) 10 mls @ 2 mls/min IV NOW STA Stop: 06/30/21 20:47 Last Admin: 06/30/21 21:12 Dose: 2 mls/min Documented by: [id number] Fosaprepitant 130 mg/ Sodium (Chloride) 130 mls @ 260 mls/hr IV ONE ONE Stop: 06/30/21 23:14 Last Infusion: 07/01/21 00:03 Dose: 0 mls/hr Documented by: [id number] Admin: 06/30/21 23:19 Dose: 260 mls/hr Documented by: [id number] Insulin Glargine (Insulin Glargine Solostar 100 Units/Ml 3 Ml Pen) 5 units SC NOW STA Stop: 06/30/21 20:40 Last Admin: 06/30/21 21:11 Dose: 300 units Documented by: [id number] Cosigned by: [id number] Metoclopramide HCl (Metoclopramide Hcl Inj 5 Mg/Ml 2 Ml Vial) 10 mg IV NOW STA Stop: 06/30/21 20:24 Last Admin: 06/30/21 21:11 Dose: 10 mg Documented by: [id number] Ondansetron HCl (Ondansetron Inj 2 Mg/Ml 2 Ml Vial) 4 mg IV NOW STA Stop: 06/30/21 18:32 Last Admin: 06/30/21 19:39 Dose: 4 mg Documented by: [id number] Medical Decision Making Differential Diagnosis Dehydration, intra-abdominal process, DKA, HHNC, electrolyte or metabolic abnormality, sepsis, pneumonia or cardiac disease Medical Records Attestation: I reviewed the patient's medical records. Home Medications Current Medication List: was personally reviewed by me Laboratory Data Result diagrams: 06/30/21 21:16 06/30/21 21:16 Lab Results 06/30/21 06/30/21 06/30/21 Range/Units 17:50 17:53 17:53 WBC 8.25 (4.8-10.8) K/uL RBC 3.38 L (4.7-6.1) M/uL Hgb 9.7 L (14.0-18.0) g/dL Hct 30.3 L (42-52) % MCV 89.6 (80-100) fL MCH 28.7 (25-34) pg MCHC 32.0 (32-36) g/dL RDW Std Deviation 46.0 (36.4-46.3) fL RDW Coeff of Rik 14.0 (11.5-14.5) % Plt Count 240 (130-400) K/uL MPV 11.4 H (7.4-10.4) fL Immature Gran % (Auto) 0.0 % Neut % (Auto) 78.8 % Lymph % (Auto) 11.5 % [place] % (Auto) 7.3 % Eos % (Auto) 2.2 % Baso % (Auto) 0.2 % Neut # (Auto) 6.50 (1.4-6.5) K/uL Lymph # (Auto) 0.95 L (1.2-3.4) K/uL [place] # (Auto) 0.60 H (0.11-0.59) K/uL Eos # (Auto) 0.18 (0-0.5) K/uL Baso # (Auto) 0.02 (0-0.2) K/uL Immature Gran # (Auto) 0.00 (0.00-0.02) K/uL PT 9.8 (9.0-12.0) Seconds INR 1.0 (0.9-1.1) APTT 26.5 (21.0-31.0) Seconds PTT Ratio 1.0 Sodium (136-145) mmol/L Potassium (3.5-5.1) mmol/L Chloride (98-107) mmol/L Carbon Dioxide (21-32) mmol/L Anion Gap (3-11) BUN (6-23) mg/dl Creatinine (0.6-1.4) mg/dl Est Cr Clr Drug Dosing ml/min Est GFR ( Amer) ml/min Est GFR (Non-Af Amer) ml/min BUN/Creatinine Ratio (10-20) Glucose (70-99(Fasting)) mg/dl Calcium (8.5-10.1) mg/dl Magnesium (1.7-2.4) mg/dl Total Bilirubin (0.2-1.0) mg/dl AST (13-39) U/L ALT (7-52) U/L Alkaline Phosphatase (34-104) U/L Troponin I (0-0.04) ng/ml B-Natriuretic Peptide (0-100) pg/ml Total Protein (6.0-8.3) gm/dl Albumin (3.4-5.0) gm/dl Globulin (2.5-4.0) gm/dl Albumin/Globulin Ratio (0.9-2) Lipase (11-82) U/L SARS-CoV-2 (PCR) NEGATIVE (Negative) Influenza Type A (PCR) Negative (Neg) Influenza Type B (PCR) Negative (Neg) RSV (RT-PCR) Negative (Neg) Blood Type Antibody Screen 06/30/21 06/30/21 06/30/21 Range/Units 17:53 17:53 17:53 WBC (4.8-10.8) K/uL RBC (4.7-6.1) M/uL Hgb (14.0-18.0) g/dL Hct (42-52) % MCV (80-100) fL MCH (25-34) pg MCHC (32-36) g/dL RDW Std Deviation (36.4-46.3) fL RDW Coeff of Rik (11.5-14.5) % Plt Count (130-400) K/uL MPV (7.4-10.4) fL Immature Gran % (Auto) % Neut % (Auto) % Lymph % (Auto) % [place] % (Auto) % Eos % (Auto) % Baso % (Auto) % Neut # (Auto) (1.4-6.5) K/uL Lymph # (Auto) (1.2-3.4) K/uL [place] # (Auto) (0.11-0.59) K/uL Eos # (Auto) (0-0.5) K/uL Baso # (Auto) (0-0.2) K/uL Immature Gran # (Auto) (0.00-0.02) K/uL PT (9.0-12.0) Seconds INR (0.9-1.1) APTT (21.0-31.0) Seconds PTT Ratio Sodium 136 (136-145) mmol/L Potassium 3.9 (3.5-5.1) mmol/L Chloride 103 (98-107) mmol/L Carbon Dioxide 24 (21-32) mmol/L Anion Gap 9 (3-11) BUN 40 H (6-23) mg/dl Creatinine 6.16 H* (0.6-1.4) mg/dl Est Cr Clr Drug Dosing 13.1 ml/min Est GFR ( Amer) 10.9 ml/min Est GFR (Non-Af Amer) 9.4 ml/min BUN/Creatinine Ratio 6.5 L (10-20) Glucose 192 H (70-99(Fasting)) mg/dl Calcium 7.1 L (8.5-10.1) mg/dl Magnesium (1.7-2.4) mg/dl Total Bilirubin 0.3 (0.2-1.0) mg/dl AST 13 (13-39) U/L ALT 11 (7-52) U/L Alkaline Phosphatase 129 H (34-104) U/L Troponin I 0.04 (0-0.04) ng/ml B-Natriuretic Peptide 649 H (0-100) pg/ml Total Protein 6.4 (6.0-8.3) gm/dl Albumin 3.2 L (3.4-5.0) gm/dl Globulin 3.2 (2.5-4.0) gm/dl Albumin/Globulin Ratio 1.0 (0.9-2) Lipase (11-82) U/L SARS-CoV-2 (PCR) (Negative) Influenza Type A (PCR) (Neg) Influenza Type B (PCR) (Neg) RSV (RT-PCR) (Neg) Blood Type Antibody Screen 06/30/21 06/30/21 06/30/21 Range/Units 17:53 21:16 21:16 WBC (4.8-10.8) K/uL RBC (4.7-6.1) M/uL Hgb 8.5 L (14.0-18.0) g/dL Hct 25.9 L (42-52) % MCV (80-100) fL MCH (25-34) pg MCHC (32-36) g/dL RDW Std Deviation (36.4-46.3) fL RDW Coeff of Rik (11.5-14.5) % Plt Count (130-400) K/uL MPV (7.4-10.4) fL Immature Gran % (Auto) % Neut % (Auto) % Lymph % (Auto) % [place] % (Auto) % Eos % (Auto) % Baso % (Auto) % Neut # (Auto) (1.4-6.5) K/uL Lymph # (Auto) (1.2-3.4) K/uL [place] # (Auto) (0.11-0.59) K/uL Eos # (Auto) (0-0.5) K/uL Baso # (Auto) (0-0.2) K/uL Immature Gran # (Auto) (0.00-0.02) K/uL PT (9.0-12.0) Seconds INR (0.9-1.1) APTT (21.0-31.0) Seconds PTT Ratio Sodium (136-145) mmol/L Potassium (3.5-5.1) mmol/L Chloride (98-107) mmol/L Carbon Dioxide (21-32) mmol/L Anion Gap (3-11) BUN (6-23) mg/dl Creatinine (0.6-1.4) mg/dl Est Cr Clr Drug Dosing ml/min Est GFR ( Amer) ml/min Est GFR (Non-Af Amer) ml/min BUN/Creatinine Ratio (10-20) Glucose (70-99(Fasting)) mg/dl Calcium (8.5-10.1) mg/dl Magnesium 1.4 L (1.7-2.4) mg/dl Total Bilirubin (0.2-1.0) mg/dl AST (13-39) U/L ALT (7-52) U/L Alkaline Phosphatase (34-104) U/L Troponin I (0-0.04) ng/ml B-Natriuretic Peptide (0-100) pg/ml Total Protein (6.0-8.3) gm/dl Albumin (3.4-5.0) gm/dl Globulin (2.5-4.0) gm/dl Albumin/Globulin Ratio (0.9-2) Lipase (11-82) U/L SARS-CoV-2 (PCR) (Negative) Influenza Type A (PCR) (Neg) Influenza Type B (PCR) (Neg) RSV (RT-PCR) (Neg) Blood Type O Positive Antibody Screen NEGATIVE 06/30/21 Range/Units 21:16 WBC (4.8-10.8) K/uL RBC (4.7-6.1) M/uL Hgb (14.0-18.0) g/dL Hct (42-52) % MCV (80-100) fL MCH (25-34) pg MCHC (32-36) g/dL RDW Std Deviation (36.4-46.3) fL RDW Coeff of Rik (11.5-14.5) % Plt Count (130-400) K/uL MPV (7.4-10.4) fL Immature Gran % (Auto) % Neut % (Auto) % Lymph % (Auto) % [place] % (Auto) % Eos % (Auto) % Baso % (Auto) % Neut # (Auto) (1.4-6.5) K/uL Lymph # (Auto) (1.2-3.4) K/uL [place] # (Auto) (0.11-0.59) K/uL Eos # (Auto) (0-0.5) K/uL Baso # (Auto) (0-0.2) K/uL Immature Gran # (Auto) (0.00-0.02) K/uL PT (9.0-12.0) Seconds INR (0.9-1.1) APTT (21.0-31.0) Seconds PTT Ratio Sodium 137 (136-145) mmol/L Potassium 3.9 (3.5-5.1) mmol/L Chloride 106 (98-107) mmol/L Carbon Dioxide 22 (21-32) mmol/L Anion Gap 9 (3-11) BUN 38 H (6-23) mg/dl Creatinine 5.88 H* (0.6-1.4) mg/dl Est Cr Clr Drug Dosing 13.7 ml/min Est GFR ( Amer) 11.5 ml/min Est GFR (Non-Af Amer) 9.9 ml/min BUN/Creatinine Ratio 6.5 L (10-20) Glucose 169 H (70-99(Fasting)) mg/dl Calcium 6.7 L (8.5-10.1) mg/dl Magnesium (1.7-2.4) mg/dl Total Bilirubin (0.2-1.0) mg/dl AST (13-39) U/L ALT (7-52) U/L Alkaline Phosphatase (34-104) U/L Troponin I (0-0.04) ng/ml B-Natriuretic Peptide (0-100) pg/ml Total Protein (6.0-8.3) gm/dl Albumin (3.4-5.0) gm/dl Globulin (2.5-4.0) gm/dl Albumin/Globulin Ratio (0.9-2) Lipase 3 L (11-82) U/L SARS-CoV-2 (PCR) (Negative) Influenza Type A (PCR) (Neg) Influenza Type B (PCR) (Neg) RSV (RT-PCR) (Neg) Blood Type Antibody Screen Imaging Data Attestation: I personally reviewed and interpreted this imaging study as follows: My Impression: Chest x-raythere is patchy infiltrate in the right upper lobe. There is some increased interstitial markings throughout the lungs.no pneumothorax seen. Radiologist's Impression: Chest X-Ray 06/30/21 17:24 XR chest 1V portable HISTORY: Malaise. illness COMPARISON: Chest 02/23/2021. FINDINGS: No pneumothorax. No pleural effusions. Postoperative changes consistent with a prior left upper lobectomy. This likely accounts for the blunting of the left lateral costophrenic sulcus. There are hazy bibasilar densities. The heart is top normal in size. There is also focal right upper lobe 4.1 cm airspace opacity. IMPRESSION: 1. A focal right upper lobe airspace opacity measuring 4.1 cm with hazy bibasilar densities. This likely represents a multifocal pneumonia and could be due to a viral process. Follow-up chest x-ray in one to 2 months is recommended to ensure resolution. 2. Postoperative changes within the left hemithorax again noted. ACT 112: Negative or not required by law. Electronically signed by: Danilo Langley M.D. 06/30/2021 7:11 PM Abdomen/Pelvis CT 06/30/21 18:[address] WITHOUT CONTRAST CT DOSE: 440.51 mGy.cm HISTORY: Left flank pain. vomiting, elevATED CREATINE TECHNIQUE: Multiaxial CT images of the abdomen and pelvis were performed without contrast. A dose lowering technique was utilized adhering to the principles of ALARA. COMPARISON STUDY: Abdomen and pelvis CT 02/23/2021. FINDINGS: Mild interlobular septal thickening and groundglass densities within the lung bases. This favors pulmonary edema. There is a trace left pleural effusion. No pneumoperitoneum. No pneumatosis. Mild thickening of the distal esophagus is again noted. Expansion and destructive change is again noted within the left lateral ninth rib. This favors metastatic disease. Moderate body wall edema. Left lower quadrant gastric stimulator device is again noted. Prior cholecystectomy. The unenhanced liver, adrenal glands, and kidneys unremarkable. No renal or ureteral stones. No hydronephrosis. There are few punctate calcifications within the spleen. The pancreas remains atrophic. A few prominent retroperitoneal lymph nodes are noted. No pelvic lymphadenopathy. Mild bladder wall thickening. The prostate gland is mildly enlarged. The bladder is mildly distended. This is improved in the interval. Suboptimal evaluation for bowel pathology due to the lack of intravenous and oral contrast. However, there is no definite bowel wall thickening or obstruction. Moderate well-formed stool within the colon. The appendix is identified within the right lower quadrant. The appendix measures up to 12 mm in diameter. However, there is no periappendiceal fat stranding. This remains unchanged compared the prior study and is therefore likely chronic. No evidence for acute appendicitis given the lack of adjacent inflammatory change. IMPRESSION: 1. No renal or ureteral stones. No hydronephrosis. 2. Mild bladder wall thickening. This may be related to chronic outlet obstruction. Recommend correlation with urinalysis to exclude a cystitis. 3. Pulmonary edema and a trace left pleural effusion. Patchy groundglass densities at the right lung base are nonspecific but could be due to a pneumonia or the pulmonary edema. 4. No evidence for bowel obstruction. 5. The appendix measures up to 12 mm in diameter. This remains unchanged compared the prior study and is therefore likely chronic. No evidence for acute appendicitis given the lack of adjacent inflammatory change. 6. Redemonstration of the destructive left lateral ninth rib lesion likely representing metastatic disease. 7. Additional findings as described above. ACT 112: Negative or not required by law. Electronically signed by: Danilo Langley M.D. 06/30/2021 8:[address] 06/30/21 21:46 CT head/brain wo con CLINICAL HISTORY: hill Technique: Contiguous axial CT images of the head were acquired from the base of the skull to the vertex without intravenous contrast administration. Images were viewed in brain, subdural and bone windows. Automated dose lowering techniques and/or adjustment according to patient size were utilized for this exam. Comparison: Comparison is made to CT head 02/20/2021 Findings: The ventricles, basal cisterns, and cerebral sulci are normal. There is no acute intracranial hemorrhage or evidence of acute territorial infarction. Neither mass effect, shift of the midline structures, nor abnormal extra-axial fluid collections are shown. Imaged portions of the paranasal sinuses and mastoid air cells are clear. The orbits appear normal. There are no acute fractures of the calvaria or scalp swelling. Incidentally noted is rightward nasal septal deviation. Impression: No acute intracranial hemorrhage, no evidence of acute territorial infarction or other acute intracranial disease process. ACT 112: Negative or not required by law. Electronically signed by: Tan Muller M.D. 06/30/2021 10:23 PM ECG Data Attestation: I personally reviewed and interpreted this ECG as follows: Indication: + chest pain and + SOB/dyspnea Rate (beats per minute): 100 Rhythm: + normal sinus ECG Intervals/blocks: + Normal QRS, + Normal QT and + Normal DE ECG [place]: + Normal ECG ST segments: + Normal ST segments ECG Findings: + Poor R wave progression Comparison ECG Date: from (02/16/21) Change: no significant change MDM Narrative This patient comes in described above he is been sick for couple days he does have a history of gastroparesis. He is also had some shortness of breath. IV access was established was hydrated with an IV normal saline bolus and also given IV Zofran.He has no fever or here or white count to suggest infection he has baseline anemia. His creatinine came back at significantly elevated compared to baseline this may be prerenal. I did also order a CT without con trast and a chest x-ray. His EKG does not show any peaked T waves his potassium is normal and he has nothing to suggest ischemia or arrhythmia. Chest x-ray shows a patchy infiltrate in the right upper lobe. His blood sugar is 192 but he has no significant acidosis to suggest DKA. His Covid testing was negative. Chest x-ray he may actually have some fluid overload/CHF versus infiltrate. He still was having nausea and was given Reglan IV. His CAT scan did not show any renal abnormalities but they do think he has more of a fluid overload and he has the known rib metastases. I do think he needs to be admitted for further evaluation and treatment and I consulted Dr. Chinchilla to see him in the ED. Continuous cardiac monitoring: Orders placed in EMR for continuous distributor advertising material. Home interpretation patient was noted to be normal sinus rhythm with a rate of 90. Impression & Plan Acute renal failure, Nausea vomiting and diarrhea, Diabetic gastroparesis, Diabetes, Lab test negative for COVID-19 virus, Bilateral pulmonary infiltrates on CXR, Acute dehydration Discharge Plan Visit Data Chief Complaint: Shortness of Breath/Dyspnea Stated Complaint: NAUSEA, VOMITING, SHORT OF BREATH ED Provider: Jeff Fisher Discharge Problem: Acute renal failure, Nausea vomiting and diarrhea, Diabetic gastroparesis, Diabetes, Lab test negative for COVID-19 virus, Bilateral pulmonary infiltrates on CXR, Acute dehydration Patient Disposition: Admitted As Inpatient Discharge Instructions Interventions: ED Discharge Assessment Last Done: 06/30/21 23:56
[2021-06-30 18:48] LABS: Influenza A virus by PCR Negative (Neg); Influenza B virus by PCR Negative (Neg); RSV by PCR Negative (Neg); SARS CoV2 RNA(COVID-19) InHosp NEGATIVE (Negative)
--- NOTE | 2021-06-30 19:12 | XRay Report ---
XR chest 1V portable HISTORY: Malaise. illness COMPARISON: Chest 02/23/2021. FINDINGS: No pneumothorax. No pleural effusions. Postoperative changes consistent with a prior left u pper lobectomy. This likely accounts for the blunting of the left lateral costophrenic sulcus. There are hazy bibasilar densities. The heart is top normal in size. There is also focal right upper lobe 4 .1 cm airspace opacity. IMPRESSION: 1. A focal right upper lobe airspace opacity measuring 4.1 cm with hazy bibasilar densities. This lik tyler represents a multifocal pneumonia and could be due to a viral process. Follow-up chest x-ray in o ne to 2 months is recommended to ensure resolution. 2. Postoperative changes within the left hemithorax again noted. ACT 112: Negative or not required by law. Electronically signed by: Danilo Langley M.D. 06/30/2021 7:11 PM
[2021-06-30] MEDS ORDERED: METOCLOPRAMIDE HCL INJ 5 MG/ML 2 ML VIAL IV STA (20:23)
--- NOTE | 2021-06-30 20:31 | CT Scan Report ---
ABDOMEN AND PELVIS CT WITHOUT CONTRAST CT DOSE: 440.51 mGy.cm HISTORY: Left flank pain. vomiting, elevATED CREATINE TECHNIQUE: Multiaxial CT images of the abdomen and pelvis were performed without contrast. A dose lo wering technique was utilized adhering to the principles of ALARA. COMPARISON STUDY: Abdomen and pelvis CT 02/23/2021. FINDINGS: Mild interlobular septal thickening and groundglass densities within the lung bases. This f avors pulmonary edema. There is a trace left pleural effusion. No pneumoperitoneum. No pneumatosis. M ild thickening of the distal esophagus is again noted. Expansion and destructive change is again note d within the left lateral ninth rib. This favors metastatic disease. Moderate body wall edema. Left l ower quadrant gastric stimulator device is again noted. Prior cholecystectomy. The unenhanced liver, adrenal glands, and kidneys unremarkable. No renal or ureteral stones. No hydronephrosis. There are f ew punctate calcifications within the spleen. The pancreas remains atrophic. A few prominent retroper itoneal lymph nodes are noted. No pelvic lymphadenopathy. Mild bladder wall thickening. The prostate gland is mildly enlarged. The bladder is mildly distended. This is improved in the interval. Suboptim al evaluation for bowel pathology due to the lack of intravenous and oral contrast. However, there is no definite bowel wall thickening or obstruction. Moderate well-formed stool within the colon. The a ppendix is identified within the right lower quadrant. The appendix measures up to 12 mm in diameter. However, there is no periappendiceal fat stranding. This remains unchanged compared the prior study and is therefore likely chronic. No evidence for acute appendicitis given the lack of adjacent inflam matory change. IMPRESSION: 1. No renal or ureteral stones. No hydronephrosis. 2. Mild bladder wall thickening. This may be related to chronic outlet obstruction. Recommend correla tion with urinalysis to exclude a cystitis. 3. Pulmonary edema and a trace left pleural effusion. Patchy groundglass densities at the right lung base are nonspecific but could be due to a pneumonia or the pulmonary edema. 4. No evidence for bowel obstruction. 5. The appendix measures up to 12 mm in diameter. This remains unchanged compared the prior study and is therefore likely chronic. No evidence for acute appendicitis given the lack of adjacent inflammat ory change. 6. Redemonstration of the destructive left lateral ninth rib lesion likely representing metastatic di sease. 7. Additional findings as described above. ACT 112: Negative or not required by law. Electronically signed by: Danilo Langley M.D. 06/30/2021 8:30 PM
--- NOTE | 2021-06-30 20:34 | History & Physical Report ---
Date of Service June 30, 2021 Assessment & Plan (1) Nausea & vomiting: (2) Diabetic gastroparesis: (3) Acute kidney injury superimposed on CKD: (4) Diabetes: (5) HTN (hypertension): (6) Anemia: (7) Chronic pain: (8) Lung cancer: (9) Seizure disorder: Plan: Assessment and plan per Dr Chinchilla. HPI, PMH, Social hx, FH, PE, med rec completed by Katlyn Peters PA-C. Assessement and plan per Dr Chinchilla. See addendum History of Present Illness Chief Complaint: Hematemesis, abdominal pain, headache Primary Care Provider: Juan Lamb MD Patient is 55 y/o M with PMH COPD, non-small cell lung cancer s/p surgery, incomplete chemotherapy secondary to intolerance, recurrence to left 9th rib in 2020 s/p radiation, ulcerative colitis, gastroparesis, s/p gastric pacemaker, HTN, DM I, chronic pain, diabetic neuropathy, CKD with baseline creatinine around 2.8, chronic anemia, seizure disorder, history of neurogenic bladder presented to ER with c/o N/V and SOB. Patient reports chronic nausea and vomiting and usually vomits 6-12 times a day. He reports the past week has been vomiting greater than 30 times a day. He reports red flecks and flecks of coffee-ground like material in emesis. Patient complains of burning to his esophagus. Reports has chronic episodes of constipation followed by diarrhea. Reports had diarrhea numerous episodes yesterday. No BM today. Patient reports chronic dizziness and feels this is at baseline. Complains of frontal headache for several days. Reports today vision seems a little foggy "like looking through wax paper". Patient reports feeling short of breath for the past 2 days and was concerned he may have pneumonia. Reports productive cough. Patient states yesterday fever 102F. Patient reports did have medications this morning however feels he vomited them back up. Reports his blood sugars have varied from 60s-200s. Reports chronic pain and paresthesias. Denies diaphoresis, syncope, neck pain, chest pain, orthopnea, palpitations, choking, rhinorrhea. Allergies Allergy/AdvReac Type Severity Reaction Status Date / Time bee venom protein (honey bee) Allergy Mild SWELLING Verified 06/30/21 23:19 AT SITE, SOB Penicillins Allergy Unknown "SINCE Verified 06/30/21 23:19 "-Amoxicillin cat dander Allergy Unknown Verified 06/30/21 23:19 Home Medications Medication Instructions Recorded Confirmed Type albuterol sulfate 90 mcg/actuation 2 puff INHALATION Q4H PRN 05/05/18 06/30/21 History aerosol inhaler (Ventolin HFA) epinephrine 0.3 mg/0.3 mL 0.3 mg IM Q3H PRN 05/05/18 06/30/21 History injection, auto-injector (EpiPen) fluticasone 250 mcg-salmeterol 50 1 inh INHALATION BID 01/24/20 06/30/21 History mcg/dose blistr powdr for inhalation (Wixela Inhub) amlodipine 5 mg tablet (Norvasc) 10 mg PO QAM tab 04/26/21 06/30/21 History blood sugar diagnostic 04/26/21 06/30/21 History flash glucose sensor (FreeStyle 04/26/21 06/30/21 History Amparo 14 Day Sensor) gabapentin 400 mg capsule 400 mg PO TID 04/26/21 06/30/21 History glucagon 1 mg solution for 1 mg IM ONCE PRN ea 04/26/21 06/30/21 History injection insulin glargine 100 unit/mL (3 7 unit SUBCUT QPM ml 04/26/21 06/30/21 History mL) subcutaneous pen (Lantus Solostar U-100 Insulin) insulin lispro 100 unit/mL 1 sliding scale dose SUBCUT 04/26/21 06/30/21 History subcutaneous solution (Humalog USEASDIRECTD U-100 Insulin) levetiracetam 750 mg tablet 750 mg PO BID 04/26/21 06/30/21 History (Keppra) lisinopril 40 mg tablet 20 mg PO DAILY 04/26/21 06/30/21 History meclizine 12.5 mg tablet 12.5 mg PO TID PRN 04/26/21 06/30/21 History metoclopramide HCl 10 mg tablet 10 mg PO TID tab 04/26/21 06/30/21 History (Reglan) omeprazole 40 mg capsule,delayed 40 mg PO DAILY 04/26/21 06/30/21 History release ondansetron HCl 4 mg tablet 4 mg PO Q8H PRN 04/26/21 06/30/21 History (Zofran) oxycodone 10 mg tablet 10 mg PO Q4H PRN 04/26/21 06/30/21 History rosuvastatin 20 mg tablet 20 mg PO DAILY 04/26/21 06/30/21 History amlodipine 10 mg tablet 10 mg PO DAILY 06/30/21 06/30/21 History clonidine 0.2 mg/24 hr weekly 0.2 mg TRANSDERMAL WK 06/30/21 06/30/21 History transdermal patch Past Med/Surg History Medical History Abdominal pain Abnormal finding on CT scan Acute dyspnea Acute hyponatremia Acute on chronic renal failure IVAN (acute kidney injury) Anemia Asymptomatic hypertensive urgency Chest pain No current chest pain...related to reflux per patient Chronic pain CKD (chronic kidney disease) stage 4, GFR 15-29 ml/min baseline creatinine 3 in fall 2020 w/ 1 gm proteinuria COPD (chronic obstructive pulmonary disease) Dehydration Diabetes mellitus type 2, uncontrolled Diabetic autonomic neuropathy Diabetic peripheral neuropathy Discharge planning issues DVT prophylaxis Elevated d-dimer Esophagitis Gastroparesis "s/p gastric stimulator" History of Crohn's disease HTN (hypertension) Hyperglycemia Hypertension Hypertensive crisis Hypoglycemia Hypomagnesemia Hypothermia Intractable nausea and vomiting Lab test negative for COVID-19 virus Huntington grade C esophagitis 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 One 1 mm polyp in the ascending colon resected. One benign appearing 1 mm polyp in the rectum resected. Internal hemorrhoids; Dr. Demarco" H/O esophagogastroduodenoscopy "01/26/2015- [place] Grade B reflux esophagitis, gastritis; Dr. Major" History of cholecystectomy History of tonsillectomy and adenoidectomy Hx of total knee arthroplasty S/P lobectomy of lung "left upper lobectomy for adenoCa" On 08/05/16 16:30 Edie Mcfarland wrote "L side @ [facility] [place] Lo 05/25/16" Status post insertion of intrathecal pump explanted Family History Mother Diabetes Dementia Father Hypertension Diabetes Sister Crohn's disease Other Family history non-contributory Social History Smoking Status: Former smoker Tobacco Type: Cigarettes Second Hand Exposure: No; Hx Alcohol Use: No Hx Substance Use: Yes Last Used Substance: Just Prior to Arrival Last Used Substance Other:: Four hours ago Substance Use Type Other:: Currenlty denies Preferred Language: Tajik Communication Ability: Effective Visual Impairment: No Limitations Reliability Technicians Required: No Beliefs That Will Affect Care: Adventist Adventist Beliefs: Worship marital status: Single Current Living Situation: Alone Current Living Situation Comment: has family close by and available to assist current occupational status: disabled How many Children do You have: 5 Feels Safe at Home: Yes Safety Concerns: Feels Safe At This Time Diet Comment: Carb counting caffeine: No Physical Activity Frequency: Does not Exercise Physical Activity Frequency Comment: walks when able Assistive Devices: Cane, Special Shoe and Walker Review of Systems Review of Systems: All systems reviewed & are unremarkable except as noted in HPI & below Physical Exam Physical Exam: General: chronic ill appearing male, mild distress secondary to nausea Head: normocephalic, atraumatic Eyes: PERRL, EOM's intact, conjunctiva non-injected, anicteric ENT: normal inspection external ears, nose, mucous membranes dry Neck: supple, trachea midline Lungs: clear, no respiratory distress, no wheezing/rhonchi/rales CV: RRR, no murmur, no JVD, no pretibial edema Abd: normal BS, soft, non-tender Ext: no cyanosis, no calf tenderness Neuro: A&O x 3, no focal deficits noted, normal affect Skin: warm, dry Results & Data Results & Data ([facility]) Vital Signs (Past 12 Hours) Vital Signs Temp Pulse Pulse Resp BP BP Pulse Ox 06/30/21 21:18 87 20 174/111 H 97 06/30/21 17:19 36.7 C 97 H 14 190/107 H 97 Laboratory Results Short CBC 06/30/21 Range/Units 17:53 WBC 8.25 (4.8-10.8) K/uL Hgb 9.7 L (14.0-18.0) g/dL Hct 30.3 L (42-52) % Plt Count 240 (130-400) K/uL BMP 06/30/21 17:53 Sodium 136 Potassium 3.9 Chloride 103 Carbon Dioxide 24 BUN 40 H Creatinine 6.16 H* Glucose 192 H Calcium 7.1 L Cardiac Enzymes 06/30/21 Range/Units 17:53 Troponin I 0.04 (0-0.04) ng/ml Liver Function 06/30/21 Range/Units 17:53 Total Bilirubin 0.3 (0.2-1.0) mg/dl AST 13 (13-39) U/L ALT 11 (7-52) U/L Alkaline Phosphatase 129 H (34-104) U/L Albumin 3.2 L (3.4-5.0) gm/dl Diagnostic Findings Chest X-Ray 06/30/21 17:24 XR chest 1V portable HISTORY: Malaise. illness COMPARISON: Chest 02/23/2021. FINDINGS: No pneumothorax. No pleural effusions. Postoperative changes consistent with a prior left upper lobectomy. This likely accounts for the blunting of the left lateral costophrenic sulcus. There are hazy bibasilar densities. The heart is top normal in size. There is also focal right upper lobe 4.1 cm airspace opacity. IMPRESSION: 1. A focal right upper lobe airspace opacity measuring 4.1 cm with hazy bibasilar densities. This likely represents a multifocal pneumonia and could be due to a viral process. Follow-up chest x-ray in one to 2 months is recommended to ensure resolution. 2. Postoperative changes within the left hemithorax again noted. ACT 112: Negative or not required by law. Electronically signed by: Danilo Langley M.D. 06/30/2021 7:11 PM Abdomen/Pelvis CT 06/30/21 18:[address] WITHOUT CONTRAST CT DOSE: 440.51 mGy.cm HISTORY: Left flank pain. vomiting, elevATED CREATINE TECHNIQUE: Multiaxial CT images of the abdomen and pelvis were performed without contrast. A dose lowering technique was utilized adhering to the principles of ALARA. COMPARISON STUDY: Abdomen and pelvis CT 02/23/2021. FINDINGS: Mild interlobular septal thickening and groundglass densities within the lung bases. This favors pulmonary edema. There is a trace left pleural effusion. No pneumoperitoneum. No pneumatosis. Mild thickening of the distal esophagus is again noted. Expansion and destructive change is again noted within the left lateral ninth rib. This favors metastatic disease. Moderate body wall edema. Left lower quadrant gastric stimulator device is again noted. Prior cholecystectomy. The unenhanced liver, adrenal glands, and kidneys unremarkable. No renal or ureteral stones. No hydronephrosis. There are few punctate calcifications within the spleen. The pancreas remains atrophic. A few prominent retroperitoneal lymph nodes are noted. No pelvic lymphadenopathy. Mild bladder wall thickening. The prostate gland is mildly enlarged. The bladder is mildly distended. This is improved in the interval. Suboptimal evaluation for bowel pathology due to the lack of intravenous and oral contrast. However, there is no definite bowel wall thickening or obstruction. Moderate well-formed stool within the colon. The appendix is identified within the right lower quadrant. The appendix measures up to 12 mm in diameter. However, there is no periappendiceal fat stranding. This remains unchanged compared the prior study and is therefore likely chronic. No evidence for acute appendicitis given the lack of adjacent inflammatory change. IMPRESSION: 1. No renal or ureteral stones. No hydronephrosis. 2. Mild bladder wall thickening. This may be related to chronic outlet obstruction. Recommend correlation with urinalysis to exclude a cystitis. 3. Pulmonary edema and a trace left pleural effusion. Patchy groundglass densities at the right lung base are nonspecific but could be due to a pneumonia or the pulmonary edema. 4. No evidence for bowel obstruction. 5. The appendix measures up to 12 mm in diameter. This remains unchanged compared the prior study and is therefore likely chronic. No evidence for acute appendicitis given the lack of adjacent inflammatory change. 6. Redemonstration of the destructive left lateral ninth rib lesion likely representing metastatic disease. 7. Additional findings as described above. ACT 112: Negative or not required by law. Electronically signed by: Danilo Langley M.D. 06/30/2021 8:30 PM Supervising Physician Co-Signing Physician Notes IM ATTENDING : Patient seen and examined. History obtained from patient and records. Preceding documentation by Ms. Katlyn Peters PA-C reviewed. FINAL ASSESSMENT AND PLAN as follows : UGI B secondary to gastroparesis flareup hx esophagitis, esophageal ulcers on EGD last year hx gastric pacemaker Possible opioid withdrawal, history chronic pain on narcotics Currently hemodynamically stable Aspiration pneumonia secondary to emesis symptoms, no overt sepsis for now Uncontrolled hypertension, ARF on CRI secondary to illness DM1, reasonable control as of recent hemoglobin A1c of 7.1, last March 2021 Metastatic NSCLC status post surgery, incomplete chemotherapy secondary to intolerance status post radiation. Patient deemed to be poor candidate for additional chemotherapy as per outpatient oncology note. Seizure disorder, stable on maintenance AED tx chronic anemia, hemoglobin at baseline ikely secondary to hemoconcentration Past tobacco abuse Medical telemetry IV PPI twice daily Serial H&H, transfuse PRBC if hemoglobin less than 7 and or for symptomatic anemia Emend trial for gastroparesis flareup GI consult if with progressive UGI B, intractable gastroparesis symptoms Judicious narcotic use for patient's chronic pain in light of gastroparesis/suspected misuse Ertapenem for aspiration pneumonia Baseline UA, monitor creatinine response to IVF, Peace catheter for accurate IOs Nephrology consult if without improvement in kidney function Facilitate home BP meds Home Keppra dosed for current renal function Basal insulin adjusted for n.p.o. status for now, ISS BG goal 110-140, update hemoglobin A1c DVT prophylaxis. SCDs Re: GI bleed Full code Text document was generated using [employer] voice recognition software. It may contain grammatical or spelling errors. Kindly contact undersigned for clarification of any documentation item in question. (1) Diabetes Diabetes mellitus complication status: with other specified complication Diabetes mellitus type: type 1 Qualified Code(s): E10.69 - Type 1 diabetes mellitus with other specified complication (2) Chronic pain Chronic pain type: other chronic pain Qualified Code(s): G89.29 - Other chronic pain
[2021-06-30] MEDS ORDERED: INSULIN GLARGINE SOLOSTAR 100 UNITS/ML 3 ML PEN SC STA (20:39)
[2021-06-30] MEDS ORDERED: ERTAPENEM SODIUM 10 ML IV STA (20:43)
[2021-06-30] MEDS ORDERED: PANTOprazole 80 MG in DEXTROSE 5% 100 ML IV ONE (20:45)
[2021-06-30] MEDS ORDERED: CLINDAMYCIN 600 MG in DEXTROSE 5% 50 ML IV ONE (20:45)
[2021-06-30] MEDS ORDERED: DEXTROSE 50% 50 ML SYRINGE IV PRN ×2 (20:45→23:02)
[2021-06-30] MEDS ORDERED: GLUCOSE 40% GEL 15 GM TUBE PO PRN ×2 (20:45→23:02)
[2021-06-30] MEDS ORDERED: GLUCOSE 10 TABS/TUBE PO PRN ×2 (20:45→23:02)
[2021-06-30] MEDS ORDERED: GLUCAGON FOR INJ 1 MG VIAL IM PRN (20:45)
[2021-06-30 21:24] LABS: Hematocrit (blood only) 25.9 % (42-52); Hemoglobin 8.5 g/dL (14.0-18.0)
[2021-06-30 21:45] LABS: BUN Creatinine Ratio 6.5 (10-20); Calcium 6.7 mg/dl (8.5-10.1); Creatinine Clr Calc Pharmacy 13.7 ml/min; Est GFR (African American) 11.5 ml/min; Est GFR (Non-African American) 9.9 ml/min; Potassium 3.9 mmol/L (3.5-5.1)
[2021-06-30] MEDS: MAGNESIUM SULFATE / D5W 1 GM/100 ML BAG IV SCH (22:23)
--- NOTE | 2021-06-30 22:24 | CT Scan Report ---
CT head/brain wo con CLINICAL HISTORY: hill Technique: Contiguous axial CT images of the head were acquired from the base of the skull to the mendy lashaun without intravenous contrast administration. Images were viewed [facility]. Automated dose lowering techniques and/or adjustment according to patient size were utilized for this exam. Comparison: Comparison is made to CT head 02/20/2021 Findings: The ventricles, basal cisterns, and cerebral sulci are normal. There is no acute intracranial hemorrh age or evidence of acute territorial infarction. Neither mass effect, shift of the midline structures , nor abnormal extra-axial fluid collections are shown. Imaged portions of the paranasal sinuses and mastoid air cells are clear. The orbits appear normal. There are no acute fractures of the calvaria or scalp swelling. Incidentally noted is rightward nasa l septal deviation. Impression: No acute intracranial hemorrhage, no evidence of acute territorial infarction or other acute intracra nial disease process. ACT 112: Negative or not required by law. Electronically signed by: Tan Muller M.D. 06/30/2021 10:23 PM
[2021-06-30] MEDS ORDERED: FOSAPREPITANT DIMEGLUMINE IV ONE (22:45)
[2021-06-30] MEDS ORDERED: SODIUM CHLORIDE 0.9% IV ONE (22:45)
[2021-06-30] MEDS ORDERED: ACETAMINOPHEN 325 MG TAB PO PRN (23:02)
[2021-06-30] MEDS ORDERED: GLUCAGON FOR INJ 1 MG VIAL SQ PRN (23:02)
[2021-06-30] MEDS ORDERED: CARBOHYDRATES FOR HYPOGLYCEMIA PO PRN (23:02)
[2021-07-01] MEDS: INSULIN ASPART PER UNIT SC SCH ×5 (01:41→22:03)
[2021-07-01] MEDS: CHECK CLONIDINE PATCH PLACEMENT SCH ×3 (01:42→17:02)
[2021-07-01] MEDS: MAGNESIUM SULFATE / D5W 1 GM/100 ML BAG IV SCH (02:06)
[2021-07-01] MEDS ORDERED: STAT IV STA (03:10)
[2021-07-01] MEDS ORDERED: CALCIUM GLUCONATE 10% 1,000 MG in DEXTROSE 5% 50 ML IV ONE (03:30)
[2021-07-01 07:04] LABS: Estimated Average Glucose 212 mg/dl
[2021-07-01 07:05] LABS: Basophils # (auto) 0.03 K/uL (0-0.2); Basophils % (auto) 0.7 %; Eosinophils # (auto) 0.21 K/uL (0-0.5); Eosinophils % (auto) 4.9 %; Hematocrit (blood only) 24.2 % (42-52); Hemoglobin 7.8 g/dL (14.0-18.0); Immature Granulocytes # (auto) 0.02 K/uL (0.00-0.02); Immature Granulocytes % (auto) 0.5 %; Lymphocytes # (auto) 1.28 K/uL (1.2-3.4); Lymphocytes % (auto) 29.8 %; Mean Corpuscular Hgb Conc 32.2 g/dL (32-36); Mean Platelet Volume 11.1 fL (7.4-10.4); Monocytes # (auto) 0.45 K/uL (0.11-0.59); Monocytes % (auto) 10.5 %; Neutrophils % (auto) 53.6 %; Platelet Count 170 K/uL (130-400); RDW Coefficient of Variation 14.2 % (11.5-14.5); RDW Standard Deviation 46.9 fL (36.4-46.3); Red Blood Count 2.69 M/uL (4.7-6.1); White Blood Count 4.29 K/uL (4.8-10.8)
[2021-07-01 07:31] LABS: RBC Morphology Unremarkable
[2021-07-01 07:34] LABS: BUN Creatinine Ratio 6.8 (10-20); Calcium 6.7 mg/dl (8.5-10.1); Creatinine Clr Calc Pharmacy 14.1 ml/min; Est GFR (African American) 11.8 ml/min; Est GFR (Non-African American) 10.2 ml/min; Magnesium 1.8 mg/dl (1.7-2.4)
[2021-07-01] MEDS: PANTOprazole 40 MG in SYRINGE 0 ML IV SCH ×2 (08:22→20:55)
[2021-07-01] MEDS: GABAPENTIN 100 MG CAP PO SCH ×3 (08:22→20:55)
[2021-07-01] MEDS: levETIRAcetam 500 MG TAB PO SCH ×2 (08:22→20:55)
[2021-07-01] MEDS: METOCLOPRAMIDE HCL 10 MG TABLET PO SCH ×3 (08:22→20:55)
[2021-07-01] MEDS: amLODIPine BESYLATE 5 MG TAB PO SCH (08:22)
[2021-07-01] MEDS: ROSUVASTATIN CALCIUM 20 MG TAB PO SCH (08:22)
[2021-07-01] MEDS: FLUTICASONE/VILANTEROL 100/25MCG 14 PUFFS/INHALER INH SCH (08:23)
[2021-07-01] MEDS: oxyCODONE HCL IR 5 MG TAB (IMMEDIATE RELEASE) PO PRN ×3 (08:29→21:23)
[2021-07-01] MEDS ORDERED: [UNRECOGNIZED DRUG - REMARK] PRN (09:00)
[2021-07-01] MEDS ORDERED: FLUTICASONE/SALMETEROL 250/50 (ADVAIR) 14 PUFF/1 INHALER INH SCH (09:00)
--- NOTE | 2021-07-01 10:21 | Electrocardiogram Report ---
Test Reason : Blood Pressure : / mmHG Vent. Rate : 100 BPM Atrial Rate : 100 BPM P-R Int : 138 ms QRS Dur : 096 ms QT Int : 386 ms P-R-T Axes : 039 -18 081 degrees QTc Int : 497 ms Normal sinus rhythm Anteroseptal infarct (cited on or before 20-DEC-2020) Abnormal ECG When compared with ECG of 16-FEB-2021 08:46, Premature atrial complexes are no longer Present Questionable change in QRS axis Nonspecific T wave abnormality no longer evident in Inferior leads QT has lengthened Confirmed by Surya Polk ([id number]) on 07/01/2021 10:20:43 AM Referred By: REFERRED SELF Confirmed By:Surya Polk
[2021-07-01] MEDS ORDERED: SODIUM CHLORIDE 0.9% 1000ML 1,000 ML IV SCH (11:00)
--- NOTE | 2021-07-01 11:35 | Nephrology Consultation ---
Date of Consultation July 01, 2021 Assessment & Plan (1) Acute kidney injury superimposed on CKD: Patient with acute kidney injury due to ischemic ATN in setting of nausea and vomiting for several days. Creatinine on admission was 6.1 from a baseline of 3. Creatinine is down to 5.7 after receiving IV fluids. I discussed possibility of needing dialysis during this admission. Given history of metastatic cancer and of the multiple comorbidities, patient may not be a good candidate for dialysis. Patient would like to talk to palliative care before making a decision. -Stop IV fluids given high risk of pulmonary edema. CT abdomen also suggestive of pulmonary edema. -Monitor renal function with daily BMP (2) Primary cancer of left lung metastatic to other site: Patient is status post resection and radiation to the ninth rib. Patient will discuss with palliative care whether he would like to pursue further aggressive treatments like dialysis if needed. History of Present Illness Reason for Consultation: Acute kidney injury on CKD Requesting Physician: Idalmis Lares DO Attending Physician: Idalmis Lares DO History of Present Illness Patient is 55 y/o M with PMH COPD, non-small cell lung cancer s/p surgery, incomplete chemotherapy secondary to intolerance, recurrence to left 9th rib in 2020 s/p radiation, ulcerative colitis, gastroparesis, s/p gastric pacemaker, HTN, DM I, chronic pain, diabetic neuropathy, CKD 3 with baseline creatinine around 3 with 4 g proteinuria who was admitted with a 1 week of nausea and vomiting. He was found to have acute kidney injury with creatinine of 6.1. He has received some IV fluids and creatinine is down to 5.7 today. He denies shortness of breath but has leg swelling. He reports decrease in urine output. He has been having vomiting for about a week and had some coffee-ground emesis. CT abdomen yesterday showed no hydronephrosis but evidence of pulmonary edema. His hemoglobin is 7.8. Allergies Allergy/AdvReac Type Severity Reaction Status Date / Time bee venom protein (honey bee) Allergy Mild SWELLING Verified 06/30/21 23:19 AT SITE, SOB Penicillins Allergy Unknown "SINCE Verified 06/30/21 23:19 "-Amoxicillin cat dander Allergy Unknown Verified 06/30/21 23:19 Home Medications Medication Instructions Recorded Confirmed Type albuterol sulfate 90 mcg/actuation 2 puff INHALATION Q4H PRN 05/05/18 06/30/21 History aerosol inhaler (Ventolin HFA) epinephrine 0.3 mg/0.3 mL 0.3 mg IM Q3H PRN 05/05/18 06/30/21 History injection, auto-injector (EpiPen) fluticasone 250 mcg-salmeterol 50 1 inh INHALATION BID 01/24/20 06/30/21 History mcg/dose blistr powdr for inhalation (Wixela Inhub) amlodipine 5 mg tablet (Norvasc) 10 mg PO QAM tab 04/26/21 06/30/21 History blood sugar diagnostic 04/26/21 06/30/21 History flash glucose sensor (FreeStyle 04/26/21 06/30/21 History Amparo 14 Day Sensor) gabapentin 400 mg capsule 400 mg PO TID 04/26/21 06/30/21 History glucagon 1 mg solution for 1 mg IM ONCE PRN ea 04/26/21 06/30/21 History injection insulin glargine 100 unit/mL (3 7 unit SUBCUT QPM ml 04/26/21 06/30/21 History mL) subcutaneous pen (Lantus Solostar U-100 Insulin) insulin lispro 100 unit/mL 1 sliding scale dose SUBCUT 04/26/21 06/30/21 History subcutaneous solution (Humalog USEASDIRECTD U-100 Insulin) levetiracetam 750 mg tablet 750 mg PO BID 04/26/21 06/30/21 History (Keppra) lisinopril 40 mg tablet 20 mg PO DAILY 04/26/21 06/30/21 History meclizine 12.5 mg tablet 12.5 mg PO TID PRN 04/26/21 06/30/21 History metoclopramide HCl 10 mg tablet 10 mg PO TID tab 04/26/21 06/30/21 History (Reglan) omeprazole 40 mg capsule,delayed 40 mg PO DAILY 04/26/21 06/30/21 History release ondansetron HCl 4 mg tablet 4 mg PO Q8H PRN 04/26/21 06/30/21 History (Zofran) oxycodone 10 mg tablet 10 mg PO Q4H PRN 04/26/21 06/30/21 History rosuvastatin 20 mg tablet 20 mg PO DAILY 04/26/21 06/30/21 History amlodipine 10 mg tablet 10 mg PO DAILY 06/30/21 06/30/21 History clonidine 0.2 mg/24 hr weekly 0.2 mg TRANSDERMAL WK 06/30/21 06/30/21 History transdermal patch Patient History Medical History Abdominal pain Abnormal finding on CT scan Acute dyspnea Acute hyponatremia Acute on chronic renal failure IVAN (acute kidney injury) Anemia Asymptomatic hypertensive urgency Chest pain No current chest pain...related to reflux per patient Chronic pain CKD (chronic kidney disease) stage 4, GFR 15-29 ml/min baseline creatinine 3 in fall 2020 w/ 1 gm proteinuria COPD (chronic obstructive pulmonary disease) Dehydration Diabetes mellitus type 2, uncontrolled Diabetic autonomic neuropathy Diabetic peripheral neuropathy Discharge planning issues DVT prophylaxis Elevated d-dimer Esophagitis Gastroparesis "s/p gastric stimulator" History of Crohn's disease HTN (hypertension) Hyperglycemia Hypertension Hypertensive crisis Hypoglycemia Hypomagnesemia Hypothermia Intractable nausea and vomiting Lab test negative for COVID-[address] [facility] [facility] grade C esophagitis 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 One 1 mm polyp in the ascending colon resected. One benign appearing 1 mm polyp in the rectum resected. Internal hemorrhoids; Dr. Demarco" H/O esophagogastroduodenoscopy "01/26/2015- [place] Grade B reflux esophagitis, gastritis; Dr. Major" History of cholecystectomy History of tonsillectomy and adenoidectomy Hx of total knee arthroplasty S/P lobectomy of lung "left upper lobectomy for adenoCa" On 08/05/16 16:30 Edie Mcfarland wrote "L side @ [facility] 05/25/16" Status post insertion of intrathecal pump explanted Family History Mother Diabetes Dementia Father Hypertension Diabetes Sister Crohn's disease Other Family history non-contributory Social History Smoking Status: Former smoker Tobacco Type: Cigarettes Second Hand Exposure: No; Hx Alcohol Use: No Hx Substance Use: Yes Last Used Substance: Just Prior to Arrival Last Used Substance Other:: Four hours ago Substance Use Type Other:: Currenlty denies Preferred Language: Malian Communication Ability: Effective Visual Impairment: No Limitations Client Application Support Engineer Required: No Beliefs That Will Affect Care: Religion Religion Beliefs: Latter Day marital status: Single Current Living Situation: Alone Current Living Situation Comment: has family close by and available to assist current occupational status: disabled How many Children do You have: 5 Feels Safe at Home: Yes Safety Concerns: Feels Safe At This Time Diet Comment: Carb counting caffeine: No Physical Activity Frequency: Does not Exercise Physical Activity Frequency Comment: walks when able Assistive Devices: Cane, Special Shoe and Walker Review of Systems Review of Systems: All other systems were reviewed and negative except as noted in HPI Physical Exam Physical Exam: General exam: Appears comfortable, no acute distress HEENT: Pupils are equal and reactive to light Neck: No JVD, neck is supple trachea is midline Respiratory system: Decreased breath sounds bilaterally. Gastrointestinal: Abdomen is soft, non distended, non tender, bowel sounds are present CVS: Regular rate and rhythm. No murmurs, rubs or gallops Musculoskeletal: No joint or muscle tenderness Extremities: Non tender, 1+ edema, peripheral pulses are present Neuro: Oriented, no tremors, no focal neurological deficits Skin: No rashes Results & Data ([facility]) Vital Signs (Past 12 Hours) Vital Signs Temp Pulse Pulse Resp BP BP Pulse Ox 07/01/21 10:31 73 07/01/21 08:08 36.8 C 80 17 144/81 H 90 07/01/21 03:16 36.6 C 77 17 140/76 90 07/01/21 02:18 78 16 131/70 98 06/30/21 23:56 36.6 C 68 18 167/101 H 96 06/30/21 23:40 36.7 C 77 97 H 18 146/69 H 94 Laboratory Results 07/01/21 06:48 06/30/21 06/30/21 07/01/21 17:53 17:53 06:48 WBC 8.25 4.29 L RBC 3.38 L 2.69 L MCV 89.6 90.0 MCH 28.7 29.0 MCHC 32.0 32.2 RDW Std Deviation 46.0 46.9 H RDW Coeff of Rik 14.0 14.2 Plt Count 240 170 MPV 11.4 H 11.1 H Albumin 3.2 L
[2021-07-01 12:18] LABS: Appearance Urine Clear (Clear); Bacteria Urine Automated Negative (Negative); Bilirubin Urine Negative (Negative); Blood Urine 1+ (Negative); Color Urine Yellow; Epithelial Cell Urine Auto >30 /lpf (0-5); Glucose Urine UA 1+ (Negative); Ketones Urine Negative (Negative); Leukocyte Esterase Urine Negative (Negative); Nitrite Urine Negative (Negative); Protein Urine 4+ (Negative); RBC Urine Automated 0-4 /hpf (0-4); Specific Gravity Urine 1.017 (1.000-1.030); Urobilinogen Urine Negative (Negative)
[2021-07-01 12:26] LABS: Hematocrit (blood only) 23.3 % (42-52); Hemoglobin 7.6 g/dL (14.0-18.0)
--- NOTE | 2021-07-01 12:44 | Hospitalist Progress Note ---
Date of Service July 01, 2021 Assessment & Plan (1) Acute kidney injury (IVAN) with acute tubular necrosis (ATN): Plan: Acute kidney injury due to ischemic ATN in setting of nausea and vomiting for several days. He has a baseline creatinine of 3 reflecting chronic kidney disease. He received IV fluids overnight and creatinine is down to 5.7 this morning prompting consultation with nephrology. There was a discussion of possible dialysis, however, given history of metastatic cancer and multiple comorbidities patient may not be a good candidate for this. We will continue goals of care discussion during this admission and monitoring daily BMP. For now patient's nausea and vomiting has subsided and he is tolerating a diet and asking for a shift to regular food. We will ask nutrition to see him and he is also interested in the clear Ensure supplementation if that is available. (2) Diabetic gastroparesis: Plan: Patient is now tolerating a diet and will advance to a low potassium diet so he can pick and choose what he would like to eat. Antiemetics as needed. Stimulator in place. (3) Aspiration pneumonia: Plan: Questionable pneumonia on CT scan, covering with ertapenem pending culture results and clinical improvement given recent symptoms. Ordering sputum culture now. (4) Diabetes: Plan: Continue basal bolus insulin that is similar to his home regimen. Currently blood sugar is controlled. Continue to monitor closely. (5) Primary cancer of left lung metastatic to other site: Plan: Recently finished radiation treatments and is scheduling for a PET scan in 1 month. Continue current therapy per oncology/radiation oncology. (6) HTN (hypertension): Plan: On it, stable, lisinopril on hold in setting of worsening renal failure. Continue amlodipine 10 mg daily and Catapres TTS weekly patch per home regimen (7) Anemia: Plan: Chronic, stable, multifactorial. No indication for transfusion at this time. Continue monitor (8) Chronic pain: Plan: Currently managed with gabapentin 200 mg p.o. 3 times daily which is a reduction from his home dose of 400 mg p.o. 3 times daily in setting of renal failure. (9) Seizure disorder: Plan: Chronic, stable, no evidence of seizure activity. Continue Keppra per home regimen at reduced dose of 500 mg p.o. 3 times daily in setting of renal failure (10) DVT prophylaxis: Plan: SCDs, chemoprophylaxis contraindicated in setting of recent questionable bloody vomitus and anemia Full code Disposition-to home when medically stable and improved Idalmis Lares DO [facility] Hospitalist Admission and Anticipated Discharge Date Admission Date: June 30, 2021 Subjective 55-year-old male with a history of non-small cell carcinoma of the lung status post chemotherapy followed by wedge resection followed by PET CT revealing change to the left lateral ninth rib. This is consistent with metastatic carcinoma of lung primary and he recently completed radiation therapy. At home he reports chronic vomiting from a chronic gastroparesis and is status post gut stimulator placement, however, during radiation this could not be adjusted. He reports a worsening of vomiting including coffee-ground emesis at times and presented when he started to feel worse and less in control. Specifically his vision became fuzzy he was sleeping all the time he was not able to manage his own care at home. He was found to have a worsening acute renal failure that likely explain most of the symptoms. Overnight he has done well with a period of bowel rest and he has been tolerating clear liquids this morning. He is questioning if he can have a regular diet. He also reports respiratory symptoms including productive cough for the last week but no fevers or chills. This in conjunction with findings on CT scan may be consistent with an aspiration pneumonia and he has been doing well and somewhat improved on the ertapenem started yesterday. There is also a trace left pleural effusion and pulmonary edema present so IV fluids were stopped. We will continue to hydrate orally now that he is tolerating p.o. No emesis. Today. Reports feeling somewhat better today. Review of Systems Review of Systems: All systems reviewed and negative except as indicated above. Physical Exam Physical Exam: CONSTITUTIONAL: WNWD, vitals as above, generally ill- appearing, no acute distress EYES: normal conjunctivae, no scleral icterus ENT: external ear and nose normal, NECK: trachea midline, RESPIRATORY: clear to auscultation bilaterally, no crackles, rales or wheezes, normal respiratory effort CARDIOVASCULAR: regular rate and rhythm, S1 and 2 heard without murmurs, gallops or rubs, no JVD, no peripheral edema, CHEST: inspection of chest was normal GASTROINTESTINAL: soft, nontender, ND, no guarding MUSCULOSKELETAL: strength 5/5 throughout, head is normocephalic and atraumatic, no gross focal deficits. SKIN: warm and dry NEUROLOGIC: CN 2-12 grossly intact, normal cognition, normal speech, no tremor, no gross focal deficits. PSYCHIATRIC: alert cooperative and oriented to person, place and time. Results & Data Results & Data ([facility]) Vital Signs (Past 12 Hours) Vital Signs Temp Pulse Pulse Resp BP Pulse Ox 07/01/21 11:26 36.7 C 81 18 154/77 H 96 07/01/21 10:31 73 07/01/21 08:08 36.8 C 80 17 144/81 H 90 07/01/21 03:16 36.6 C 77 17 140/76 90 07/01/21 02:18 78 16 131/70 98 Laboratory Results Short CBC 06/30/21 06/30/21 07/01/21 Range/Units 17:53 21:16 06:48 WBC 8.25 4.29 L (4.8-10.8) K/uL Hgb 9.7 L 8.5 L 7.8 L (14.0-18.0) g/dL Hct 30.3 L 25.9 L 24.2 L (42-52) % Plt Count 240 170 (130-400) K/uL 07/01/21 Range/Units 12:13 WBC (4.8-10.8) K/uL Hgb 7.6 L (14.0-18.0) g/dL Hct 23.3 L (42-52) % Plt Count (130-400) K/uL BMP 06/30/21 06/30/21 07/01/21 17:53 21:16 06:48 Sodium 136 137 136 Potassium 3.9 3.9 4.0 Chloride 103 106 107 Carbon Dioxide 22 BUN 40 H 38 H 39 H Creatinine 6.16 H* 5.88 H* 5.73 H* Glucose 192 H 169 H 95 Calcium 7.1 L 6.7 L 6.7 L Cardiac Enzymes 06/30/21 Range/Units 17:53 Troponin I 0.04 (0-0.04) ng/ml Liver Function 06/30/21 Range/Units 17:53 Total Bilirubin 0.3 (0.2-1.0) mg/dl AST 13 (13-39) U/L ALT 11 (7-52) U/L Alkaline Phosphatase 129 H (34-104) U/L Albumin 3.2 L (3.4-5.0) gm/dl Urine 07/01/21 Range/Units 11:50 Urine Color Yellow Urine Appearance Clear (Clear) Urine pH 6.0 (4.5-7.5) Ur Specific [place] 1.017 (1.000-1.030) Urine Protein 4+ H (Negative) Urine Glucose (UA) 1+ H (Negative) Medications Administered Current Inpatient Medications Acetaminophen (Acetaminophen 325 Mg Tab) 650 mg PO Q4H PRN PRN Reason: Pain or Fever Stop: 07/30/21 23:01 Amlodipine Besylate (Amlodipine Besylate 5 Mg Tab) 10 mg PO DAILY [facility] Stop: 07/31/21 08:59 Last Admin: 07/01/21 08:22 Dose: 10 mg Documented by: Clonidine HCl (Clonidine Hcl 0.2 Mg/24 Hr Transderm Sys) 1 patch TD Fr@2200 [facility] Stop: 07/30/21 21:59 Last Admin: 07/01/21 01:42 Dose: 1 patch Documented by: Dextrose (Dextrose 50% 50 Ml Syringe) 25 - 50 ml IV UD PRN; Protocol PRN Reason: Hypoglycemia Protocol Stop: 07/30/21 20:44 Fluticasone/Vilanterol (Fluticasone/Vilanterol 100/25mcg 14 Puffs/Inhaler) 1 puffs INH DAILY [facility] Stop: 07/31/21 08:59 Last Admin: 07/01/21 08:23 Dose: 1 puffs Documented by: Gabapentin (Gabapentin 100 Mg Cap) 200 mg PO TID [facility] Stop: 07/31/21 08:59 Last Admin: 07/01/21 13:02 Dose: 200 mg Documented by: Glucagon (Glucagon For Inj 1 Mg Vial) 1 mg IM UD PRN; Protocol PRN Reason: Hypoglycemia Protocol Stop: 07/30/21 20:44 Glucagon (Glucagon For Inj 1 Mg Vial) 1 mg SQ UD PRN; Protocol PRN Reason: Hypoglycemia Protocol Stop: 07/30/21 23:01 Glucose (Glucose 40% Gel 15 Gm Tube) 15 - 30 gm PO UD PRN; Protocol PRN Reason: Hypoglycemia Protocol Stop: 07/30/21 20:44 Glucose (Glucose 10 Tabs/Tube) 4 - 8 tabs PO UD PRN; Protocol PRN Reason: Hypoglycemia Protocol Stop: 07/30/21 20:44 Promethazine HCl 12.5 mg/ (Sodium Chloride) 50.5 mls @ 202 mls/hr IV Q6H PRN PRN Reason: Nausea And Vomiting Stop: 07/30/21 23:01 Ertapenem 500 mg/ Syringe 5 mls @ 2 mls/min IV Q24H [facility] Stop: 07/11/21 20:59 Pantoprazole Sodium 40 mg/ (Syringe) 10 mls @ 5 mls/min IV BID [facility] Stop: 07/31/21 08:59 Last Admin: 07/01/21 08:22 Dose: 5 mls/min Documented by: Insulin Aspart (Insulin Aspart Per Unit) 0 units SC ACHS [facility] Stop: 07/30/21 23:01 Last Admin: 07/01/21 12:17 Dose: Not Given Documented by: Insulin Glargine (Insulin Glargine Solostar 100 Units/Ml 3 Ml Pen) 5 units SQ QPM [facility] Stop: 07/31/21 20:59 Levetiracetam (Levetiracetam 500 Mg Tab) 500 mg PO BID [facility] Stop: 07/31/21 08:59 Last Admin: 07/01/21 08:22 Dose: 500 mg Documented by: Metoclopramide HCl (Metoclopramide Hcl 10 Mg Tablet) 10 mg PO TID [facility] Stop: 07/31/21 08:59 Last Admin: 07/01/21 13:02 Dose: 10 mg Documented by: Miscellaneous (Carbohydrates For Hypoglycemia ) 15 - 30 gm PO UD PRN PRN Reason: Hypoglycemia Treatment Stop: 07/30/21 20:44 Miscellaneous (Remove Clonidine Patch) 1 ea N/A Fr@2159 [facility] Stop: 07/30/21 21:58 Last Admin: 06/30/21 22:17 Dose: 1 ea Documented by: Miscellaneous (Check Clonidine Patch Placement) 1 ea N/A QS [facility] Stop: 07/31/21 00:00 Last Admin: 07/01/21 17:02 Dose: 1 ea Documented by: Miscellaneous Information (Consult Pharmacy: Ertapenem) 1 ea N/A UD PRN PRN Reason: Consult Stop: 07/31/21 08:59 Oxycodone HCl (Oxycodone Hcl Ir 5 Mg Tab (Immediate Release)) 5 mg PO QID PRN PRN Reason: Severe Pain (Scale Score 7-10) Stop: 07/15/21 00:00 Last Admin: 07/01/21 13:01 Dose: 5 mg Documented by: Rosuvastatin Calcium (Rosuvastatin Calcium 20 Mg Tab) 20 mg PO DAILY [facility] Stop: 07/31/21 08:59 Last Admin: 07/01/21 08:22 Dose: 20 mg Documented by: (1) Diabetes Diabetes mellitus complication status: with other specified complication Diabetes mellitus type: type 1 Qualified Code(s): E10.69 - Type 1 diabetes mellitus with other specified complication (2) Chronic pain Chronic pain type: other chronic pain Qualified Code(s): G89.29 - Other chronic pain
[2021-07-01 13:16] LABS: Amphetamines+Metham, Urine Neg (Neg); Barbiturates, Urine Neg (Neg); Benzodiazepine, Urine Neg (Neg); Cocaine, Urine Neg (Neg); MDMA (Ecstacy), Urine Neg (Neg); Methadone, Urine Neg (Neg); Opiate, Urine Neg (Neg); Phencyclidine, Urine Neg (Neg)
[2021-07-01] MEDS ORDERED: INSULIN GLARGINE SOLOSTAR 100 UNITS/ML 3 ML PEN SQ SCH (21:00)
[2021-07-01] MEDS: ERTAPENEM SODIUM 500 MG in SYRINGE 0 ML IV SCH (21:20)
[2021-07-02] MEDS: CHECK CLONIDINE PATCH PLACEMENT SCH ×3 (01:24→14:51)
[2021-07-02] MEDS: PROMETHAZINE HCL 12.5 MG in SODIUM CHLORIDE 0.9% 50 ML IV PRN (02:50)
[2021-07-02] MEDS: oxyCODONE HCL IR 5 MG TAB (IMMEDIATE RELEASE) PO PRN ×3 (03:56→21:08)
[2021-07-02] MEDS: INSULIN ASPART PER UNIT SC SCH ×4 (08:24→21:08)
[2021-07-02] MEDS: METOCLOPRAMIDE HCL 10 MG TABLET PO SCH ×3 (08:26→21:07)
[2021-07-02] MEDS: PANTOprazole 40 MG in SYRINGE 0 ML IV SCH ×2 (08:26→22:47)
[2021-07-02] MEDS: GABAPENTIN 100 MG CAP PO SCH ×3 (08:26→21:07)
[2021-07-02] MEDS: ROSUVASTATIN CALCIUM 20 MG TAB PO SCH (08:26)
[2021-07-02] MEDS: FLUTICASONE/VILANTEROL 100/25MCG 14 PUFFS/INHALER INH SCH (08:26)
[2021-07-02] MEDS: levETIRAcetam 500 MG TAB PO SCH ×2 (08:26→21:06)
[2021-07-02] MEDS: amLODIPine BESYLATE 5 MG TAB PO SCH (08:27)
--- NOTE | 2021-07-02 09:23 | Nephrology Progress Note ---
Date of Service July 02, 2021 Assessment & Plan (1) Acute kidney injury superimposed on CKD: Plan: Patient with acute kidney injury due to ischemic ATN in setting of nausea and vomiting for several days. Patient also found to have aspiration pneumonia. Creatinine on admission was 6.1 from a baseline of 3. Creatinine down to 5.7 after receiving IV fluids. I discussed possibility of needing dialysis during this admission. Given history of metastatic cancer and of the multiple comorbidities, patient may not be a good candidate for dialysis. Patient would like to talk to palliative care before making a decision. Repeat labs today are pending. -Renally dose antibiotics for GFR less than 15 mL/min -Monitor input output -Monitor renal function with daily BMP (2) Primary cancer of left lung metastatic to other site: Plan: Patient is status post resection and radiation to the ninth rib. Patient will discuss with palliative care whether he would like to pursue further aggressive treatments like dialysis if needed. Admission and Anticipated Discharge Date Admission Date: June 30, 2021 Subjective Seen in follow-up for acute renal failure.He feels a little better today denies any shortness of breath although he had episodes of shortness of breath last night. He reports to be making urine although it is not documented. Review of Systems Review of Systems: All other systems were reviewed and negative except as noted in HPI Physical Exam Physical Exam: General exam: Appears comfortable, no acute distress HEENT: Pupils are equal and reactive to light Neck: No JVD, neck is supple trachea is midline Respiratory system: Decreased breath sounds bilaterally. Gastrointestinal: Abdomen is soft, non distended, non tender, bowel sounds are present CVS: Regular rate and rhythm. No murmurs, rubs or gallops Musculoskeletal: No joint or muscle tenderness Extremities: Non tender, 1+ edema, peripheral pulses are present Neuro: Oriented, + tremors, no focal neurological deficits Skin: No rashes Results & Data ([facility]) Vital Signs (Past 12 Hours) Vital Signs Temp Pulse Pulse Resp BP Pulse Ox 07/02/21 07:36 36.5 C 97 H 18 129/81 92 07/02/21 07:26 73 07/02/21 06:10 82 07/02/21 03:05 36.5 C 82 16 119/72 90 07/01/21 23:25 36.5 C 80 18 122/72 94 Laboratory Results 07/01/21 06:48
[2021-07-02] MEDS: CARBOHYDRATES FOR HYPOGLYCEMIA PO PRN (10:05)
--- NOTE | 2021-07-02 10:21 | Hospitalist Progress Note ---
Date of Service July 02, 2021 Assessment & Plan (1) Acute kidney injury (IVAN) with acute tubular necrosis (ATN): Plan: Acute kidney injury due to ischemic ATN in setting of nausea and vomiting for several days. He has a baseline creatinine of 3 reflecting chronic kidney disease. He received IV fluids overnight and creatinine is down to 5.7 this morning prompting consultation with nephrology. Patient would like to pursue dialysis-began discussion with nephrology. Trend BMP (2) Diabetic gastroparesis: Plan: Patient is now tolerating a diet - Antiemetics as needed. Stimulator in place. (3) Aspiration pneumonia: Plan: Questionable pneumonia on CT scan, covering with ertapenem pending culture results and clinical improvement given recent symptoms. Cont abx pending clinical improvement and culture results. (4) Diabetes: Plan: Continue basal bolus insulin that is similar to his home regimen. Currently blood sugar is controlled. Continue to monitor closely. (5) Primary cancer of left lung metastatic to other site: Plan: Recently finished radiation treatments and is scheduling for a PET scan in 1 month. Continue current therapy per oncology/radiation oncology. (6) HTN (hypertension): Plan: On it, stable, lisinopril on hold in setting of worsening renal failure. Continue amlodipine 10 mg daily and Catapres TTS weekly patch per home regimen (7) Anemia: Plan: Chronic, stable, multifactorial. No indication for transfusion at this time. Continue monitor (8) Chronic pain: Plan: Currently managed with gabapentin 200 mg p.o. 3 times daily which is a reduction from his home dose of 400 mg p.o. 3 times daily in setting of renal failure. (9) Seizure disorder: Plan: Chronic, stable, no evidence of seizure activity. Continue Keppra per home regimen at reduced dose of 500 mg p.o. 3 times daily in setting of renal failure (10) DVT prophylaxis: Plan: SCDs, chemoprophylaxis contraindicated in setting of recent questionable bloody vomitus and anemia Full code Disposition-to home when medically stable and improved DO Jackelyn Sharpe Hospitalist Admission and Anticipated Discharge Date Admission Date: June 30, 2021 Subjective 55 yo with ARF, h/o metastatic lung cancer. Creatinine is worse We discussed dialysis and he wants to pursue this reports generalized pain and declining Tylenol Sleepy , tolerating PO Review of Systems Review of Systems: All systems reviewed and negative except as indicated above. Physical Exam Physical Exam: CONSTITUTIONAL: WNWD, vitals as above, generally ill-appearing , no acute distress, tired EYES: normal conjunctivae, no scleral icterus ENT: external ear and nose normal, NECK: trachea midline, RESPIRATORY: clear to auscultation bilaterally, no crackles, rales or wheezes, normal respiratory effort CARDIOVASCULAR: regular rate and rhythm, S1 and 2 heard without murmurs, gallops or rubs, no JVD, no peripheral edema, CHEST: inspection of chest was normal GASTROINTESTINAL: soft, nontender, ND, no guarding MUSCULOSKELETAL: strength 5/5 throughout, head is normocephalic and atraumatic, no gross focal deficits. SKIN: warm and dry NEUROLOGIC: CN 2-12 grossly intact, normal cognition, normal speech, no tremor, no gross focal deficits. PSYCHIATRIC: alert cooperative and oriented to person, place and time. Results & Data Results & Data ([facility]) Vital Signs (Past 12 Hours) Vital Signs Temp Pulse Pulse Resp BP Pulse Ox 07/02/21 07:36 36.5 C 97 H 18 129/81 92 07/02/21 07:26 73 07/02/21 06:10 82 07/02/21 03:05 36.5 C 82 16 119/72 90 07/01/21 23:25 36.5 C 80 18 122/72 94 Laboratory Results Short CBC 07/01/21 Range/Units 12:13 Hgb 7.6 L (14.0-18.0) g/dL Hct 23.3 L (42-52) % Urine 07/01/21 Range/Units 11:50 Urine Color Yellow Urine Appearance Clear (Clear) Urine pH 6.0 (4.5-7.5) Ur Specific Gill 1.017 (1.000-1.030) Urine Protein 4+ H (Negative) Urine Glucose (UA) 1+ H (Negative) Medications Administered Current Inpatient Medications Acetaminophen (Acetaminophen 325 Mg Tab) 650 mg PO Q4H PRN PRN Reason: Pain or Fever Stop: 07/30/21 23:01 Amlodipine Besylate (Amlodipine Besylate 5 Mg Tab) 10 mg PO DAILY COUNT INCLUDES THE [facility] Stop: 07/31/21 08:59 Last Admin: 07/02/21 08:27 Dose: 10 mg Documented by: Clonidine HCl (Clonidine Hcl 0.2 Mg/24 Hr Transderm Sys) 1 patch TD Fr@2200 COUNT INCLUDES THE [facility] Stop: 07/30/21 21:59 Last Admin: 07/01/21 01:42 Dose: 1 patch Documented by: Dextrose (Dextrose 50% 50 Ml Syringe) 25 - 50 ml IV UD PRN; Protocol PRN Reason: Hypoglycemia Protocol Stop: 07/30/21 20:44 Fluticasone/Vilanterol (Fluticasone/Vilanterol 100/25mcg 14 Puffs/Inhaler) 1 puffs INH DAILY DAMIR Stop: 07/31/21 08:59 Last Admin: 07/02/21 08:26 Dose: 1 puffs Documented by: Gabapentin (Gabapentin 100 Mg Cap) 200 mg PO TID COUNT INCLUDES THE [facility] Stop: 07/31/21 08:59 Last Admin: 07/02/21 08:26 Dose: 200 mg Documented by: Glucagon (Glucagon For Inj 1 Mg Vial) 1 mg IM UD PRN; Protocol PRN Reason: Hypoglycemia Protocol Stop: 07/30/21 20:44 Glucagon (Glucagon For Inj 1 Mg Vial) 1 mg SQ UD PRN; Protocol PRN Reason: Hypoglycemia Protocol Stop: 07/30/21 23:01 Glucose (Glucose 40% Gel 15 Gm Tube) 15 - 30 gm PO UD PRN; Protocol PRN Reason: Hypoglycemia Protocol Stop: 07/30/21 20:44 Glucose (Glucose 10 Tabs/Tube) 4 - 8 tabs PO UD PRN; Protocol PRN Reason: Hypoglycemia Protocol Stop: 07/30/21 20:44 Promethazine HCl 12.5 mg/ (Sodium Chloride) 50.5 mls @ 202 mls/hr IV Q6H PRN PRN Reason: Nausea And Vomiting Stop: 07/30/21 23:01 Last Infusion: 07/02/21 03:12 Dose: Infused Documented by: Ertapenem 500 mg/ Syringe 5 mls @ 2 mls/min IV Q24H COUNT INCLUDES THE [facility] Stop: 07/11/21 20:59 Last Admin: 07/01/21 21:20 Dose: 2 mls/min Documented by: Pantoprazole Sodium 40 mg/ (Syringe) 10 mls @ 5 mls/min IV BID COUNT INCLUDES THE [facility] Stop: 07/31/21 08:59 Last Admin: 07/02/21 08:26 Dose: 5 mls/min Documented by: Insulin Aspart (Insulin Aspart Per Unit) 0 units SC ACHS COUNT INCLUDES THE [facility] Stop: 07/30/21 23:01 Last Admin: 07/02/21 08:24 Dose: 5 units Documented by: Insulin Glargine (Insulin Glargine Solostar 100 Units/Ml 3 Ml Pen) 5 units SQ QPM COUNT INCLUDES THE [facility] Stop: 07/31/21 20:59 Last Admin: 07/01/21 22:02 Dose: 5 units Documented by: Levetiracetam (Levetiracetam 500 Mg Tab) 500 mg PO BID COUNT INCLUDES THE [facility] Stop: 07/31/21 08:59 Last Admin: 07/02/21 08:26 Dose: 500 mg Documented by: Metoclopramide HCl (Metoclopramide Hcl 10 Mg Tablet) 10 mg PO TID COUNT INCLUDES THE [facility] Stop: 07/31/21 08:59 Last Admin: 07/02/21 08:26 Dose: 10 mg Documented by: Miscellaneous (Carbohydrates For Hypoglycemia ) 15 - 30 gm PO UD PRN PRN Reason: Hypoglycemia Treatment Stop: 07/30/21 20:44 Last Admin: 07/02/21 10:05 Dose: 15 gm Documented by: Bjaneous (Remove Clonidine Patch) 1 ea N/A Fr@2159 COUNT INCLUDES THE [facility] Stop: 07/30/21 21:58 Last Admin: 06/30/21 22:17 Dose: 1 ea Documented by: Carmencellaneous (Check Clonidine Patch Placement) 1 ea N/A QS COUNT INCLUDES THE [facility] Stop: 07/31/21 00:00 Last Admin: 07/02/21 08:25 Dose: 1 ea Documented by: Miscellaneous Information (Consult Pharmacy: Ertapenem) 1 ea N/A UD PRN PRN Reason: Consult Stop: 07/31/21 08:59 Oxycodone HCl (Oxycodone Hcl Ir 5 Mg Tab (Immediate Release)) 5 mg PO QID PRN PRN Reason: Severe Pain (Scale Score 7-10) Stop: 07/15/21 00:00 Last Admin: 07/02/21 03:56 Dose: 5 mg Documented by: Rosuvastatin Calcium (Rosuvastatin Calcium 20 Mg Tab) 20 mg PO DAILY COUNT INCLUDES THE [facility] Stop: 07/31/21 08:59 Last Admin: 07/02/21 08:26 Dose: 20 mg Documented by: (1) Diabetes Diabetes mellitus complication status: with other specified complication Diabetes mellitus type: type 1 Qualified Code(s): E10.69 - Type 1 diabetes mellitus with other specified complication (2) Chronic pain Chronic pain type: other chronic pain Qualified Code(s): G89.29 - Other chronic pain
[2021-07-02] MEDS ORDERED: PHARMACY GLYCEMIC MGMT CONSULT PRN (10:33)
[2021-07-02 10:40] LABS: Hematocrit (blood only) 27.2 % (42-52); Hemoglobin 8.7 g/dL (14.0-18.0); Mean Corpuscular Hemoglobin 29.2 pg (25-34); Mean Corpuscular Volume 91.3 fL (80-100); Platelet Count 211 K/uL (130-400); RDW Standard Deviation 46.5 fL (36.4-46.3); Red Blood Count 2.98 M/uL (4.7-6.1); White Blood Count 9.55 K/uL (4.8-10.8)
[2021-07-02 11:07] LABS: BUN Creatinine Ratio 6.2 (10-20); Calcium 7.1 mg/dl (8.5-10.1); Creatinine Clr Calc Pharmacy 12.2 ml/min; Est GFR (Non-African American) 8.6 ml/min; Magnesium 1.7 mg/dl (1.7-2.4); Phosphorus 5.7 mg/dl (2.5-4.9); Potassium 4.2 mmol/L (3.5-5.1)
--- NOTE | 2021-07-02 14:46 | Pharmacy Report ---
Pharmacy Glycemic Short Note 2 - Date of Service July 02, 2021 - Glycemic Short BSG Results (Last 24 hours): 07/01/21 07/01/21 07/01/21 16:20 20:10 21:15 Glucose POC Glucose 163 H 81 74 07/02/21 07/02/21 07/02/21 03:12 07:17 09:55 Glucose POC Glucose 189 H 217 H 53 L* 07/02/21 07/02/21 07/02/21 09:56 10:22 10:29 Glucose 47 L* POC Glucose 45 L* 68 L* 07/02/21 07/02/21 07/02/21 10:54 10:55 11:16 Glucose POC Glucose 54 L* 56 L* 88 07/02/21 07/02/21 11:52 12:38 Glucose POC Glucose 120 H 144 H OUTPATIENT ANTIDIABETIC REGIMEN: * Lantus 7 units SQ QPM * Humulog sliding scale ASSESSMENT: * 55 y/o M admitted with possible aspiration pneumonia, nausea/ vomiting and upper GI bleed. Patient is a Type 1 diabetic known to pharmacy glycemic service from recent past admissions. * Patient received 5 units of Lantus last night. Fasting BSG today AM was 217 mg/dl. HS Lantus dose increased to 7 units tonight which is his home basal do se. * He received Novolog 5 units with breakfast this AM which caused his BSG to go low mid-morning. This is from his Novolog CF being too tight. * Novolog CF loosened to 40. Based on past admissions patient needs loose CF and CR coverage with meals. PLAN FOR INPATIENT GLYCEMIC CONTROL: * Basal insulin * Lantus 7 units SQ HS * Bolus insulin * NovoLog per scale ACHS or Q6hrs while NPO * Goal Range: Low 110 mg/dL - High 140 mg/dL * Correction Factor: 40 mg/dL/unit * Nutritional / Prandial insulin per carb ratio of 1 unit per 20 grams CHO consumed PLAN FOR DISCHARGE: * TBD
[2021-07-02] MEDS ORDERED: INSULIN GLARGINE SOLOSTAR 100 UNITS/ML 3 ML PEN SQ SCH (21:00)
[2021-07-02] MEDS: ERTAPENEM SODIUM 500 MG in SYRINGE 0 ML IV SCH (22:47)
[2021-07-03] MEDS: CHECK CLONIDINE PATCH PLACEMENT SCH ×3 (00:33→15:59)
[2021-07-03] MEDS ORDERED: DEXTROSE 50% 50 ML SYRINGE IV ONE (06:40)
[2021-07-03 07:27] LABS: Hematocrit (blood only) 26.9 % (42-52); Hemoglobin 8.6 g/dL (14.0-18.0); Mean Corpuscular Hemoglobin 29.1 pg (25-34); Mean Corpuscular Volume 90.9 fL (80-100); Mean Platelet Volume 11.8 fL (7.4-10.4); Platelet Count 187 K/uL (130-400); RDW Coefficient of Variation 14.1 % (11.5-14.5); RDW Standard Deviation 47.2 fL (36.4-46.3); Red Blood Count 2.96 M/uL (4.7-6.1)
[2021-07-03 07:54] LABS: BUN Creatinine Ratio 5.7 (10-20); Calcium 6.6 mg/dl (8.5-10.1); Creatinine Clr Calc Pharmacy 10.8 ml/min; Est GFR (African American) 8.6 ml/min; Est GFR (Non-African American) 7.4 ml/min; Potassium 4.3 mmol/L (3.5-5.1)
--- NOTE | 2021-07-03 08:26 | Nephrology Progress Note ---
Date of Service July 03, 2021 Assessment & Plan (1) Acute kidney injury superimposed on CKD: Plan: Patient with stage 2 oligoanuric acute kidney injury on advanced CKD 4 w/ baseline high risk for progression. IVAN due to ischemic ATN in setting of nausea and vomiting for several days. Patient also found to have aspiration pneumonia. Creatinine on admission was 6.1 from a baseline of 3. Creatinine down to 5.7 after receiving IV fluids butworse today to mid 7s. Given history of metastatic cancer and of the multiple comorbidities, patient may not be a good candidate for dialysis. However he wishes to try and understands risks it may not go well after discussion w/ me; finds these prefereable to no intervention. Plan trial of HD 4-6 wks then reassess tolerance and plan permanent VA at thattime if interested -labs worse today; I/o incomplete -Renally dose antibiotics for GFR less than 15 mL/min -Monitor input output -Monitor renal function with daily BMP -c/s placed w/ vascular for TDC; for tomorrow 0800; Dr Lares aware pENDING CT RESULTS >>he wishes to dialyze under my care at [facility] > PENDIN GCT RESULTS pls begin admissions process (2) Primary cancer of left lung metastatic to other site: Plan: Patient is status post resection and radiation to the ninth rib. not a candidate for further chemo per oncology. upcomin gPET a few weeks after d/c Admission and Anticipated Discharge Date Admission Date: June 30, 2021 Subjective stable chronic diffuse body pain; has worsening abd pain; still some N/V; had CT this am and results pending; breathing stable; he is oligoanuric, reports lessening uop Review of Systems Review of Systems: All systems reviewed & are unremarkable except as noted in Subjective Physical Exam Constitutional: well nourished, + ill appearing and cooperative; no acute distress Eyes: EOM intact bilaterally ENMT: Ears: no external ear abnormality Nose: no external nose abnormality Mouth: + dry oral mucous membranes Neck: no nuchal rigidity Respiratory: normal respiratory effort Auscultation: + diminished lung sounds, + crackles and + rhonchi Cardiovascular: Rate/Rhythm: regular rate and regular rhythm Extremities: + edema Gastrointestinal (Abdomen): Inspection/Auscultation: normal bowel sounds Percussion/Palpation: abdomen soft; abdomen nontender Musculoskeletal: Extremities: strength 5/5 throughout Skin: no rashes, warm and dry Neurologic: villarreal, fluent speech, no tremor Psychiatric: A&0 x 3 Results & Data ([facility]) Vital Signs (Past 12 Hours) Vital Signs Temp Pulse Pulse Resp BP BP Pulse Ox 07/03/21 07:51 36.4 C L 87 19 127/53 L 92 07/03/21 04:00 36.4 C L 79 18 109/66 90 07/02/21 23:00 36.4 C L 82 18 136/78 94 07/02/21 22:25 84 Laboratory Results 07/03/21 06:56 07/03/21 06:56
[2021-07-03] MEDS: INSULIN ASPART PER UNIT SC SCH ×4 (08:44→20:58)
[2021-07-03] MEDS: METOCLOPRAMIDE HCL 10 MG TABLET PO SCH ×3 (08:45→20:59)
[2021-07-03] MEDS: GABAPENTIN 100 MG CAP PO SCH ×3 (08:45→20:59)
[2021-07-03] MEDS: PANTOprazole 40 MG in SYRINGE 0 ML IV SCH ×2 (08:45→20:59)
[2021-07-03] MEDS: FLUTICASONE/VILANTEROL 100/25MCG 14 PUFFS/INHALER INH SCH (08:45)
[2021-07-03] MEDS: levETIRAcetam 500 MG TAB PO SCH ×2 (08:45→20:59)
[2021-07-03] MEDS ORDERED: ERTAPENEM CONSULT ACTIVE PRN (08:45)
[2021-07-03] MEDS: ROSUVASTATIN CALCIUM 20 MG TAB PO SCH (08:45)
[2021-07-03] MEDS: amLODIPine BESYLATE 5 MG TAB PO SCH (08:46)
[2021-07-03] MEDS ORDERED: CALCIUM GLUCONATE 10% 1,000 MG in DEXTROSE 5% 50 ML IV ONE (09:23)
[2021-07-03] MEDS ORDERED: STAT IV STA (09:23)
--- NOTE | 2021-07-03 10:07 | CT Scan Report ---
ABDOMEN AND PELVIS CT WITHOUT CONTRAST CT DOSE: HISTORY: check for metastatic disease, considering hemodial TECHNIQUE: Multiaxial CT images of the abdomen and pelvis were performed without contrast. A dose lo wering technique was utilized adhering to the principles of ALARA. COMPARISON STUDY: Abdomen and pelvis CT 06/2521. FINDINGS: Mild interlobular septal thickening and groundglass densities within the lung bases. This f avors pulmonary edema. There is a trace left pleural effusion. No pneumoperitoneum. No pneumatosis. M ild thickening of the distal esophagus is again noted. Expansion and destructive change is again note d within the left lateral ninth rib. This favors metastatic disease. Moderate body wall edema. Left l ower quadrant gastric stimulator device is again noted. Prior cholecystectomy. The unenhanced liver, left adrenal gland, and kidneys unremarkable. Stable benign right adrenal myelolipoma. No renal or ur eteral stones. No hydronephrosis. There are few punctate calcifications within the spleen. The pancre as remains atrophic. A few prominent retroperitoneal lymph nodes are noted. No pelvic lymphadenopathy . Mild bladder wall thickening. The prostate gland is mildly enlarged. Suboptimal evaluation for katie l pathology due to the lack of intravenous and oral contrast. However, there is no definite bowel wal l thickening or obstruction. Moderate well-formed stool within the colon. The appendix is identified within the right lower quadrant. The appendix measures up to 12 mm in diameter. However, there is no periappendiceal fat stranding. This remains unchanged compared the prior study and is therefore likel y chronic. No evidence for acute appendicitis given the lack of adjacent inflammatory change. IMPRESSION: 1. No renal or ureteral stones. No hydronephrosis. 2. Mild bladder wall thickening. This may be related to chronic outlet obstruction. Recommend correla tion with urinalysis to exclude a cystitis. 3. Pulmonary edema and a trace left pleural effusion. Patchy groundglass densities at the right lung base are nonspecific but could be due to a pneumonia or the pulmonary edema. 4. No evidence for bowel obstruction. 5. The appendix measures up to 12 mm in diameter. This remains unchanged compared the prior study and is therefore likely chronic. No evidence for acute appendicitis given the lack of adjacent inflammat ory change. 6. Redemonstration of the destructive left lateral ninth rib lesion likely representing metastatic di sease. 7. Additional findings as described above. ACT 112: Negative or not required by law. Electronically signed by: Danilo Langley M.D. 07/03/2021 10:05 AM
--- NOTE | 2021-07-03 10:16 | CT Scan Report ---
CT OF THE CHEST WITHOUT IV CONTRAST CLINICAL HISTORY: Shortness of breath. Lung cancer. Evaluate for metastatic disease. COMPARISON STUDY: Chest radiograph June 30, 2021. Chest CT December 20, 2020. PET/CT February 08. CT DOSE: 702.02 mGy.cm TECHNIQUE: Axial images of the chest were obtained without IV contrast. Images were reviewed in the axial, sagittal, and coronal planes. IV contrast was not administered for this examination. Automat ed exposure control was utilized for the study. A dose lowering technique was utilized adhering to t he principles of ALARA. FINDINGS: Postoperative findings within the left hemithorax are suggestive of left upper lobectomy. A small left pleural effusion is present. There is no pneumothorax. Note is made of interlobular sept al thickening and groundglass opacities suggestive of pulmonary edema. In addition, there are multifo guillermina nodular airspace opacities within the right upper lobe and bilateral lower lobes. There is no pne umothorax. Central airways are patent. The airspace opacities within the lower lungs have increased s bipin abdominal CT of June 30, 2021. A destructive left ninth rib lesion is again noted. There are multiple mildly enlarged mediastinal lymph nodes. Index subcarinal lymph node measures 1.6 cm in susana rt axis diameter. Index right paratracheal lymph node measures 1.1 cm. Index prevascular node measure s 1.3 cm. These have increased in size since PET/CT of February 08, 2021. In addition, there are multip le left pleural implants which measure up to 4 x 2.6 cm. The largest is superior to the aortic arch. These have also increased. Abdomen and pelvis will be reported separately. IMPRESSION: 1. Increase in size of multiple pleural implants within the left hemithorax and mediastinal lymphaden opathy since PET/CT of February 08, 2021. This suggests progression of metastatic disease. 2. Redemonstration of a destructive left ninth rib lesion. 3. Interstitial and alveolar pulmonary edema. Bilateral lower lobe and right upper lobe airspace opac ities which could favor pneumonia although alveolar edema could appear similar. 4. Small left pleural effusion. ACT 112: Negative or not required by law. Electronically signed by: Bryce Perez M.D. 07/03/2021 10:15 AM
--- NOTE | 2021-07-03 11:00 | Consultation ---
Date of Consultation July 03, 2021 Assessment & Plan (1) Acute kidney injury (IVAN) with acute tubular necrosis (ATN): Pt with acute on chronic kidney disease and will require HD per nephrology. Planning on permcath insertion in OR tomorrow morning, Dr Lord aware. Procedure, risks, benefits, and alternatives discussed with pt at Dr Mattson's request. Pt expresses understanding and agreement. History of Present Illness Reason for Consultation: ESRD, need permcath Attending Physician: Idalmis Lares DO History of Present Illness 55 yo m with metastatic lung ca, CKD, HTN, seizure disorder, DMII, gastroparesis, anemia, neuropathy, admitted with acute on chronic renal failure, seen in consultation today for insertion of permcath for HD initiation. Pt Cr has progressively worsening. Pt admits fatigue, malaise, cough, chronic N/V. Denies VALDEZ, chest pain, SOB, abd pain, N/V today, claudication, rest pain, nonhealing ulcerations of BLE. Allergies Allergy/AdvReac Type Severity Reaction Status Date / Time bee venom protein (honey bee) Allergy Mild SWELLING Verified 06/30/21 23:19 AT SITE, SOB Penicillins Allergy Unknown "SINCE Verified 06/30/21 23:19 "-Amoxicillin cat dander Allergy Unknown Verified 06/30/21 23:19 Home Medications Medication Instructions Recorded Confirmed Type albuterol sulfate 90 mcg/actuation 2 puff INHALATION Q4H PRN 05/05/18 06/30/21 History aerosol inhaler (Ventolin HFA) epinephrine 0.3 mg/0.3 mL 0.3 mg IM Q3H PRN 05/05/18 06/30/21 History injection, auto-injector (EpiPen) fluticasone 250 mcg-salmeterol 50 1 inh INHALATION BID 01/24/20 06/30/21 History mcg/dose blistr powdr for inhalation (Wixela Inhub) amlodipine 5 mg tablet (Norvasc) 10 mg PO QAM tab 04/26/21 06/30/21 History blood sugar diagnostic 04/26/21 06/30/21 History flash glucose sensor (FreeStyle 04/26/21 06/30/21 History Amparo 14 Day Sensor) gabapentin 400 mg capsule 400 mg PO TID 04/26/21 06/30/21 History glucagon 1 mg solution for 1 mg IM ONCE PRN ea 04/26/21 06/30/21 History injection insulin glargine 100 unit/mL (3 7 unit SUBCUT QPM ml 04/26/21 06/30/21 History mL) subcutaneous pen (Lantus Solostar U-100 Insulin) insulin lispro 100 unit/mL 1 sliding scale dose SUBCUT 04/26/21 06/30/21 History subcutaneous solution (Humalog USEASDIRECTD U-100 Insulin) levetiracetam 750 mg tablet 750 mg PO BID 04/26/21 06/30/21 History (Keppra) lisinopril 40 mg tablet 20 mg PO DAILY 04/26/21 06/30/21 History meclizine 12.5 mg tablet 12.5 mg PO TID PRN 04/26/21 06/30/21 History metoclopramide HCl 10 mg tablet 10 mg PO TID tab 04/26/21 06/30/21 History (Reglan) omeprazole 40 mg capsule,delayed 40 mg PO DAILY 04/26/21 06/30/21 History release ondansetron HCl 4 mg tablet 4 mg PO Q8H PRN 04/26/21 06/30/21 History (Zofran) oxycodone 10 mg tablet 10 mg PO Q4H PRN 04/26/21 06/30/21 History rosuvastatin 20 mg tablet 20 mg PO DAILY 04/26/21 06/30/21 History amlodipine 10 mg tablet 10 mg PO DAILY 06/30/21 06/30/21 History clonidine 0.2 mg/24 hr weekly 0.2 mg TRANSDERMAL WK 06/30/21 06/30/21 History transdermal patch Patient History Medical History Abdominal pain Abnormal finding on CT scan Acute dyspnea Acute hyponatremia Acute on chronic renal failure IVAN (acute kidney injury) Anemia Asymptomatic hypertensive urgency Chest pain No current chest pain...related to reflux per patient Chronic pain CKD (chronic kidney disease) stage 4, GFR 15-29 ml/min baseline creatinine 3 in fall 2020 w/ 1 gm proteinuria COPD (chronic obstructive pulmonary disease) Dehydration Diabetes mellitus type 2, uncontrolled Diabetic autonomic neuropathy Diabetic peripheral neuropathy Discharge planning issues DVT prophylaxis Elevated d-dimer Esophagitis Gastroparesis "s/p gastric stimulator" History of Crohn's disease HTN (hypertension) Hyperglycemia Hypertension Hypertensive crisis Hypoglycemia Hypomagnesemia Hypothermia Intractable nausea and vomiting Lab test negative for COVID-19 virus [place] grade C esophagitis Lung cancer "dx 01/2016; adenoCa SHWAN; + hilar nodes; s/p left upper lobectomy + chemo" On 08/05/16 16:31 Edie Mcfarland wrote "dx 01/2016; s/p L side lobectomy; currently undergoing chemo" Melena Nausea and vomiting Opiate dependence Orthostatic hypotension Pneumonia Presence of gastric pacemaker Seizure disorder Seizure disorder Shortness of breath SOB (shortness of breath) Somnolence Syncope and collapse Surgical History H/O colonoscopy " 04/22/2013- Mildly congested and erythematous mucosa in the ascending colon. One 1 mm polyp in the ascending colon resected. One benign appearing 1 mm polyp in the rectum resected. Internal hemorrhoids; Dr. Demarco" H/O esophagogastroduodenoscopy "01/26/2015- [place] Grade B reflux esophagitis, gastritis; Dr. Major" History of cholecystectomy History of tonsillectomy and adenoidectomy Hx of total knee arthroplasty S/P lobectomy of lung "left upper lobectomy for adenoCa" On 08/05/16 16:30 Edie Mcfarland wrote "L side @ [facility] 05/25/16" Status post insertion of intrathecal pump explanted Family History Mother Diabetes Dementia Father Hypertension Diabetes Sister Crohn's disease Other Family history non-contributory Social History Smoking Status: Former smoker Tobacco Type: Cigarettes Second Hand Exposure: No; Hx Alcohol Use: No Hx Substance Use: Yes Last Used Substance: Just Prior to Arrival Last Used Substance Other:: Four hours ago Substance Use Type Other:: Myronengabriel denies Preferred Language: Yi Communication Ability: Effective Visual Impairment: No Limitations Aircraft [employer]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 Systems Mechanic Required: No Beliefs That Will Affect Care: Worship Worship Beliefs: Synagogue marital status: Single Current Living Situation: Alone Current Living Situation Comment: has family close by and available to assist current occupational status: disabled How many Children do You have: 5 Feels Safe at Home: Yes Safety Concerns: Feels Safe At This Time Diet Comment: Carb counting caffeine: No Physical Activity Frequency: Does not Exercise Physical Activity Frequency Comment: walks when able Assistive Devices: Cane, Oxygen - at Night, Special Shoe and Walker Review of Systems Review of Systems: All systems reviewed & are unremarkable except as noted in HPI & below Physical Exam Constitutional: WD/WN, vitals as above + ill appearing (chronically), + frail appearing and cooperative; not in distress Neck: trachea midline Respiratory: normal respiratory effort; no respiratory distress Auscultation: + diminished lung sounds Cardiovascular: Rate/Rhythm: regular rate and regular rhythm Vessels: posterior tibial pulses present, dorsalis pedis pulses present and radial pulses present; + abnormal peripheral pulses Extremities: normal capillary refill; no edema Gastrointestinal (Abdomen): Inspection/Auscultation: abdomen normal to inspection Percussion/Palpation: abdomen soft; abdomen nontender Skin: no rashes, warm and dry Neurologic: moves all extremities and awake; not confused Psychiatric: A+Ox3, euthymic affect Results & Data ([facility]) Vital Signs (Past 12 Hours) Vital Signs Temp Pulse Resp BP BP Pulse Ox 07/03/21 07:51 36.4 C L 87 19 127/53 L 92 07/03/21 04:00 36.4 C L 79 18 109/66 90 07/02/21 23:00 36.4 C L 82 18 136/78 94
--- NOTE | 2021-07-03 13:38 | Hospitalist Progress Note ---
Date of Service July 03, 2021 Assessment & Plan (1) Acute kidney injury (IVAN) with acute tubular necrosis (ATN): Plan: Acute kidney injury due to ischemic ATN in setting of nausea and vomiting for several days. He has a baseline creatinine of 3 reflecting chronic kidney disease. He received IV fluids overnight initially but this has been held. Creatinine is up to 7.5 this am. Patient would like to pursue dialysis-began discussion with nephrology. Set up for tunnelled dialysis catheter placement in am. Discussed care plan with Dr. Keith from Nephrology. Notably CT ac/a/p was taken this am and reveals new pulmonary metastatic disease. Overall prognosis is guarded. (2) Diabetic gastroparesis: Plan: Patient is now tolerating a diet - Antiemetics as needed. GI Stimulator in place. (3) Aspiration pneumonia: Plan: Questionable pneumonia on CT scan, covering with ertapenem pending culture results and clinical improvement given recent symptoms. Cont abx pending clinical improvement and culture results. CT scan suggested interlobular septal thickening and ground glass opacities suggestive of pulmonary edema. He also has a small left pleural effusion present. These findings are likely related to lung malignancy and new worsening renal failure. He also may have some component of bilateral lower lobe and right upper lobe airspace opacities favoring pneumonia, as noted above, although alveolar edema could appear similar per radiology reading. He remains on antibiotic therapy and continues to oxygenate in the low 90s on room air. Currently he is being set up for hemodialysis tomorrow which will help with volume management. Would hold on diuretic at this point in setting of underlying worsened renal failure unless patient has acute tachypnea or other respiratory issues currently not present. Will check a procalcitonin in am. Recent respiratory symptoms were more suggestive of pneumonia, however, edema may also be present. Continuing to follow closely. (4) Diabetes: Plan: Hypoglycemic episode this am-second time this admission. Hold Lantus, and caution with novolog. Continue to monitor closely. Will discuss with glycemic pharmacist (5) Primary cancer of left lung metastatic to other site: Plan: Recently finished radiation treatments and is scheduling for a PET scan in 1 month. Continue current therapy per oncology/radiation oncology. (6) HTN (hypertension): Plan: On it, stable, lisinopril on hold in setting of worsening renal failure. Continue amlodipine 10 mg daily and Catapres TTS weekly patch per home regimen (7) Anemia: Plan: Chronic, stable, multifactorial. No indication for transfusion at this time. Continue monitor (8) Chronic pain: Plan: Currently managed with gabapentin 200 mg p.o. 3 times daily which is a reduction from his home dose of 400 mg p.o. 3 times daily in setting of renal failure. (9) Seizure disorder: Plan: Chronic, stable, no evidence of seizure activity. Continue Keppra per home regimen at reduced dose of 500 mg p.o. 3 times daily in setting of renal failure (10) DVT prophylaxis: Plan: SCDs, chemoprophylaxis contraindicated in setting of recent questionable bloody vomitus and anemia Full code Disposition-to home when medically stable and improved Idalmis Lares DO [facility] Hospitalist Admission and Anticipated Discharge Date Admission Date: June 30, 2021 Subjective 55 yo with ARF, h/o metastatic lung cancer. Creatinine is worse today at 7.5 and he feels "terrible" Still able to tolerate PO hypoglycemic episode this am--insulin held reports diffuse body pains and abdominal pains somnolence wants to press forward with a dialysis trial Review of Systems Review of Systems: All systems reviewed and negative except as indicated above. Physical Exam Physical Exam: CONSTITUTIONAL: WNWD, vitals as above, generally ill- appearing, no acute distress, tired EYES: normal conjunctivae, no scleral icterus ENT: external ear and nose normal, NECK: trachea midline, RESPIRATORY: clear to auscultation bilaterally, no crackles, rales or wheezes, normal respiratory effort CARDIOVASCULAR: regular rate and rhythm, S1 and 2 heard without murmurs, gallops or rubs, no JVD, no peripheral edema, CHEST: inspection of chest was normal GASTROINTESTINAL: soft, nontender, ND, no guarding MUSCULOSKELETAL: strength 5/5 throughout, head is normocephalic and atraumatic, no gross focal deficits. SKIN: warm and dry NEUROLOGIC: CN 2-12 grossly intact, normal cognition, normal speech, no tremor, no gross focal deficits. PSYCHIATRIC: alert cooperative and oriented to person, place and time. Results & Data Results & Data ([facility]) Vital Signs (Past 12 Hours) Vital Signs Temp Pulse Pulse Resp BP BP Pulse Ox 07/03/21 11:55 80 07/03/21 11:15 36.5 C 106 H 92 H 160/79 H 92 07/03/21 07:51 36.4 C L 87 19 127/53 L 92 07/03/21 04:00 36.4 C L 79 18 109/66 90 Laboratory Results Short CBC 07/03/21 Range/Units 06:56 WBC 4.50 L D (4.8-10.8) K/uL Hgb 8.6 L (14.0-18.0) g/dL Hct 26.9 L (42-52) % Plt Count 187 (130-400) K/uL BMP 07/03/21 06:56 Sodium 134 L Potassium 4.3 Chloride 105 Carbon Dioxide 21 BUN 43 H Creatinine 7.49 H* D Glucose 95 Calcium 6.6 L Diagnostic Findings Abdomen/Pelvis CT 07/03/21 08:[address] WITHOUT CONTRAST CT DOSE: HISTORY: check for metastatic disease, considering hemodial TECHNIQUE: Multiaxial CT images of the abdomen and pelvis were performed without contrast. A dose lowering technique was utilized adhering to the principles of ALARA. COMPARISON STUDY: Abdomen and pelvis CT 06/2521. FINDINGS: Mild interlobular septal thickening and groundglass densities within the lung bases. This favors pulmonary edema. There is a trace left pleural effusion. No pneumoperitoneum. No pneumatosis. Mild thickening of the distal esophagus is again noted. Expansion and destructive change is again noted within the left lateral ninth rib. This favors metastatic disease. Moderate body wall edema. Left lower quadrant gastric stimulator device is again noted. Prior cholecystectomy. The unenhanced liver, left adrenal gland, and kidneys unremarkable. Stable benign right adrenal myelolipoma. No renal or ureteral stones. No hydronephrosis. There are few punctate calcifications within the spleen. The pancreas remains atrophic. A few prominent retroperitoneal lymph nodes are noted. No pelvic lymphadenopathy. Mild bladder wall thickening. The prostate gland is mildly enlarged. Suboptimal evaluation for bowel pathology due to the lack of intravenous and oral contrast. However, there is no definite bowel wall thickening or obstruction. Moderate well-formed stool within the colon. The appendix is identified within the right lower quadrant. The appendix measures up to 12 mm in diameter. However, there is no periappendiceal fat stranding. This remains unchanged compared the prior study and is therefore likely chronic. No evidence for acute appendicitis given the lack of adjacent inflammatory change. IMPRESSION: 1. No renal or ureteral stones. No hydronephrosis. 2. Mild bladder wall thickening. This may be related to chronic outlet obstruction. Recommend correlation with urinalysis to exclude a cystitis. 3. Pulmonary edema and a trace left pleural effusion. Patchy groundglass densities at the right lung base are nonspecific but could be due to a pneumonia or the pulmonary edema. 4. No evidence for bowel obstruction. 5. The appendix measures up to 12 mm in diameter. This remains unchanged compared the prior study and is therefore likely chronic. No evidence for acute appendicitis given the lack of adjacent inflammatory change. 6. Redemonstration of the destructive left lateral ninth rib lesion likely representing metastatic disease. 7. Additional findings as described above. ACT 112: Negative or not required by law. Electronically signed by: Danilo Langley M.D. 07/03/2021 10:[address] 07/03/21 08:58 CT OF THE CHEST WITHOUT IV CONTRAST CLINICAL HISTORY: Shortness of breath. Lung cancer. Evaluate for metastatic disease. COMPARISON STUDY: Chest radiograph June 30, 2021. Chest CT December 20, 2020. PET/CT February 08, 2021. CT DOSE: 702.02 mGy.cm TECHNIQUE: Axial images of the chest were obtained without IV contrast. Images were reviewed in the axial, sagittal, and coronal planes. IV contrast was not ad ministered for this examination. Automated exposure control was utilized for the study. A dose lowering technique was utilized adhering to the principles of ALARA. FINDINGS: Postoperative findings within the left hemithorax are suggestive of left upper lobectomy. A small left pleural effusion is present. There is no pneumothorax. Note is made of interlobular septal thickening and groundglass opacities suggestive of pulmonary edema. In addition, there are multifocal nodular airspace opacities within the right upper lobe and bilateral lower lobes. There is no pneumothorax. Central airways are patent. The airspace opacities within the lower lungs have increased since abdominal CT of June 30, 2021. A destructive left ninth rib lesion is again noted. There are multiple mildly enlarged mediastinal lymph nodes. Index subcarinal lymph node measures 1.6 cm in short axis diameter. Index right paratracheal lymph node measures 1.1 cm. Index prevascular node measures 1.3 cm. These have increased in size since PET/CT of February 08, 2021. In addition, there are multiple left pleural implants which measure up to 4 x 2.6 cm. The largest is superior to the aortic arch. These have also increased. Abdomen and pelvis will be reported separately. IMPRESSION: 1. Increase in size of multiple pleural implants within the left hemithorax and mediastinal lymphadenopathy since PET/CT of February 08, 2021. This suggests progression of metastatic disease. 2. Redemonstration of a destructive left ninth rib lesion. 3. Interstitial and alveolar pulmonary edema. Bilateral lower lobe and right upper lobe airspace opacities which could favor pneumonia although alveolar edema could appear similar. 4. Small left pleural effusion. ACT 112: Negative or not required by law. Electronically signed by: Bryce Perez M.D. 07/03/2021 10:15 AM Medications Administered Current Inpatient Medications Acetaminophen (Acetaminophen 325 Mg Tab) 650 mg PO Q4H PRN PRN Reason: Pain or Fever Stop: 07/30/21 23:01 Amlodipine Besylate (Amlodipine Besylate 5 Mg Tab) 10 mg PO DAILY DAMIR Stop: 07/31/21 08:59 Last Admin: 07/03/21 08:46 Dose: 10 mg Documented by: Clonidine HCl (Clonidine Hcl 0.2 Mg/24 Hr Transderm Sys) 1 patch TD Fr@2200 DAMIR Stop: 07/30/21 21:59 Last Admin: 07/01/21 01:42 Dose: 1 patch Documented by: Dextrose (Dextrose 50% 50 Ml Syringe) 25 - 50 ml IV UD PRN; Protocol PRN Reason: Hypoglycemia Protocol Stop: 07/30/21 20:44 Ertapenem (Ertapenem Consult Active) 1 ea N/A UD PRN PRN Reason: Consult Stop: 08/02/21 08:43 Fluticasone/Vilanterol (Fluticasone/Vilanterol 100/25mcg 14 Puffs/Inhaler) 1 puffs INH DAILY DAMIR Stop: 07/31/21 08:59 Last Admin: 07/03/21 08:45 Dose: 1 puffs Documented by: Gabapentin (Gabapentin 100 Mg Cap) 200 mg PO TID DAMIR Stop: 07/31/21 08:59 Last Admin: 07/03/21 08:45 Dose: 200 mg Documented by: Glucagon (Glucagon For Inj 1 Mg Vial) 1 mg IM UD PRN; Protocol PRN Reason: Hypoglycemia Protocol Stop: 07/30/21 20:44 Glucagon (Glucagon For Inj 1 Mg Vial) 1 mg SQ UD PRN; Protocol PRN Reason: Hypoglycemia Protocol Stop: 07/30/21 23:01 Glucose (Glucose 40% Gel 15 Gm Tube) 15 - 30 gm PO UD PRN; Protocol PRN Reason: Hypoglycemia Protocol Stop: 07/30/21 20:44 Last Admin: 07/02/21 11:02 Dose: 15 gm Documented by: Glucose (Glucose 10 Tabs/Tube) 4 - 8 tabs PO UD PRN; Protocol PRN Reason: Hypoglycemia Protocol Stop: 07/30/21 20:44 Promethazine HCl 12.5 mg/ (Sodium Chloride) 50.5 mls @ 202 mls/hr IV Q6H PRN PRN Reason: Nausea And Vomiting Stop: 07/30/21 23:01 Last Infusion: 07/02/21 03:12 Dose: Infused Documented by: Ertapenem 500 mg/ Syringe 5 mls @ 2 mls/min IV Q24H DAMIR Stop: 07/08/21 20:59 Last Admin: 07/02/21 22:47 Dose: 2 mls/min Documented by: Pantoprazole Sodium 40 mg/ (Syringe) 10 mls @ 5 mls/min IV BID DAMIR Stop: 07/31/21 08:59 Last Admin: 07/03/21 08:45 Dose: 5 mls/min Documented by: Clindamycin Phosphate (Cleocin) 600 mg in 54 mls @ 100 mls/hr IV PREOP DAMIR Stop: 07/05/21 05:59 Insulin Aspart (Insulin Aspart Per Unit) 0 units SC ACHS DAMIR Stop: 07/30/21 23:01 Last Admin: 07/03/21 12:15 Dose: Not Given Documented by: Levetiracetam (Levetiracetam 500 Mg Tab) 500 mg PO BID DAMIR Stop: 07/31/21 08:59 Last Admin: 07/03/21 08:45 Dose: 500 mg Documented by: Metoclopramide HCl (Metoclopramide Hcl 10 Mg Tablet) 10 mg PO TID DAMIR Stop: 07/31/21 08:59 Last Admin: 07/03/21 08:45 Dose: 10 mg Documented by: Miscellaneous (Carbohydrates For Hypoglycemia ) 15 - 30 gm PO UD PRN PRN Reason: Hypoglycemia Treatment Stop: 07/30/21 20:44 Last Admin: 07/02/21 10:05 Dose: 15 gm Documented by: Gilberto (Remove Clonidine Patch) 1 ea N/A Fr@2159 [facility] Stop: 07/30/21 21:58 Last Admin: 06/30/21 22:17 Dose: 1 ea Documented by: Gilberto (Check Clonidine Patch Placement) 1 ea N/A QS [facility] Stop: 07/31/21 00:00 Last Admin: 07/03/21 07:31 Dose: 1 ea Documented by: Gilberto Information (Pharmacy Glycemic Mgmt Consult) 1 ea N/A UD PRN PRN Reason: Consult Stop: 08/01/21 10:32 Oxycodone HCl (Oxycodone Hcl Ir 5 Mg Tab (Immediate Release)) 5 mg PO QID PRN PRN Reason: Severe Pain (Scale Score 7-10) Stop: 07/15/21 00:00 Last Admin: 07/02/21 21:08 Dose: 5 mg Documented by: Rosuvastatin Calcium (Rosuvastatin Calcium 20 Mg Tab) 20 mg PO DAILY [facility] Stop: 07/31/21 08:59 Last Admin: 07/03/21 08:45 Dose: 20 mg Documented by: (1) Diabetes Diabetes mellitus complication status: with other specified complication Diabetes mellitus type: type 1 Qualified Code(s): E10.69 - Type 1 diabetes mellitus with other specified complication (2) Chronic pain Chronic pain type: other chronic pain Qualified Code(s): G89.29 - Other chronic pain
--- NOTE | 2021-07-03 15:13 | Pharmacy Report ---
Pharmacy Glycemic Short Note 2 - Date of Service July 03, 2021 - Glycemic Short BSG Results (Last 24 hours): 07/02/21 07/02/21 07/03/21 16:31 20:15 00:00 Glucose POC Glucose 180 H 109 H 118 H 07/03/21 07/03/21 07/03/21 03:29 05:54 06:32 Glucose POC Glucose 117 H 82 68 L* 07/03/21 07/03/21 07/03/21 06:34 06:56 07:12 Glucose 95 POC Glucose 66 L* 82 07/03/21 07/03/21 07/03/21 07:40 09:43 11:12 Glucose POC Glucose 78 76 93 OUTPATIENT ANTIDIABETIC REGIMEN: * Lantus 7 units SQ QPM * Humulog sliding scale ASSESSMENT: * BSGs yesterday were 035-30-238-109 mg/dL. * Patient received 15 units of insulin yesterday (7 units of Lantus and 8 units of bolus). * Patient's fasting today was 68 mg/dL. Lunch was 93 mg/dL. Loosen Novolog. * After discussion with provider, will switch to scheduled Regular insulin 0-2 units q6 hours tonight at midnight. Patient will be NPO for procedure tomorrow and this will provide more control over BSGs. BACKGROUND * 55 y/o M admitted with possible aspiration pneumonia, nausea/ vomiting and upper GI bleed. Patient is a Type 1 diabetic known to pharmacy glycemic service from recent past admissions. * Patient received 5 units of Lantus last night. Fasting BSG today AM was 217 mg/dl. HS Lantus dose increased to 7 units tonight which is his home basal dose. * He received Novolog 5 units with breakfast this AM which caused his BSG to go low mid-morning. This is from his Novolog CF being too tight. * Novolog CF loosened to 40. Based on past admissions patient needs loose CF and CR coverage with meals. PLAN FOR INPATIENT GLYCEMIC CONTROL: * Basal insulin * Regular insulin (hold for BSG < 120 mg/dL; 1 unit for BSG 120-180 mg/dL; 2 units for BSG > 180 mg/dL) * Bolus insulin * NovoLog per scale ACHS or Q6hrs while NPO - STOP AT MIDNIGHT * Goal Range: Low 110 mg/dL - High 140 mg/dL * Correction Factor: 55 mg/dL/unit * Nutritional / Prandial insulin per carb ratio of 1 unit per 18 grams CHO consumed PLAN FOR DISCHARGE: * TBD
[2021-07-03] MEDS: oxyCODONE HCL IR 5 MG TAB (IMMEDIATE RELEASE) PO PRN (20:58)
[2021-07-03] MEDS: ERTAPENEM SODIUM 500 MG in SYRINGE 0 ML IV SCH (20:59)
[2021-07-04] MEDS: CHECK CLONIDINE PATCH PLACEMENT SCH ×4 (01:20→23:09)
[2021-07-04] MEDS: INSULIN HUMAN REGULAR SC SCH ×3 (01:21→12:48)
[2021-07-04] MEDS ORDERED: CLINDAMYCIN 600 MG/54 ML BAG IV SCH (06:00)
[2021-07-04 06:15] LABS: Hematocrit (blood only) 23.3 % (42-52); Hemoglobin 7.6 g/dL (14.0-18.0); Mean Corpuscular Hemoglobin 29.8 pg (25-34); Mean Corpuscular Hgb Conc 32.6 g/dL (32-36); Mean Corpuscular Volume 91.4 fL (80-100); Mean Platelet Volume 11.7 fL (7.4-10.4); Platelet Count 210 K/uL (130-400); RDW Standard Deviation 46.8 fL (36.4-46.3); Red Blood Count 2.55 M/uL (4.7-6.1); White Blood Count 4.48 K/uL (4.8-10.8)
[2021-07-04 06:46] LABS: Calcium 7.3 mg/dl (8.5-10.1); Creatinine Clr Calc Pharmacy 9.9 ml/min; Est GFR (African American) 7.8 ml/min; Est GFR (Non-African American) 6.7 ml/min; Phosphorus 7.8 mg/dl (2.5-4.9); Potassium 4.5 mmol/L (3.5-5.1)
--- NOTE | 2021-07-04 07:41 | History & Physical Bridge Note ---
Date of Service July 04, 2021 History & Physical Bridge Note Patient for permcath today. I have discussed the risks options and benefits of the procedure with the patient. The patient understands the risks options and benefits and agrees to the procedure. Consent obtained by my PA under my supervision. I have examined the patient, reviewed the History & Physical and in the interval since the performance of the History & Physical I have noted the following changes of clinical significance: no changes noted
[2021-07-04] MEDS ORDERED: HEPARIN SOD (PORCINE) 5,000 UNITS/ML VIAL ONE (07:53)
[2021-07-04] MEDS ORDERED: MIDAZOLAM HCL 1 MG/ML 2ML VIAL ONE (07:53)
[2021-07-04] MEDS ORDERED: fentaNYL citrate 100 MCG/2 ML VIAL ONE (07:53)
[2021-07-04] MEDS ORDERED: LIDOCAINE 1% LOCAL 20 ML VIAL ONE (07:53)
--- NOTE | 2021-07-04 07:58 | Pre Anesthesia Assessment ---
Date of Service July 04, 2021 Pre Sedation Assessment Vital Signs Temp Pulse Pulse Pulse Resp BP BP 07/04/21 07:35 76 07/04/21 07:32 36.5 C 80 18 129/71 07/04/21 07:01 36.4 C L 73 20 125/73 07/04/21 04:28 36.4 C L 76 20 110/69 07/03/21 23:12 80 07/03/21 23:06 36.8 C 82 20 107/66 07/03/21 19:38 36.7 C 94 H 20 116/62 07/03/21 16:32 81 07/03/21 16:10 36.3 C L 84 18 107/59 L 07/03/21 11:55 80 07/03/21 11:15 36.5 C 106 H 92 H 160/79 H Pulse Ox 07/04/21 07:35 07/04/21 07:32 07/04/21 07:01 90 07/04/21 04:28 90 07/03/21 23:12 07/03/21 23:06 92 07/03/21 19:38 95 07/03/21 16:32 07/03/21 16:10 91 07/03/21 11:55 07/03/21 11:15 92 Cardiovascular RRR, no murmur, no edema Respiratory normal respiratory effort, lungs clear to auscultation Pre-Sedation Airway Assessment Smoking Status: Former smoker Hx Sleep Apnea: No Short, Thick Neck: No Thyromental Distance: > or= 3.5 Finger Breadths Oral Cavity: + Dental Abnormalities Mallampati Class: II ASA: ASA4 NPO Status Date of Last Intake of Fluids: 07/03/21 Time of Last Intake of Fluids: 23:00 Date of Last Intake of Solid Food: 07/03/21 Time of Last Intake of Solid Foods: 23:00 Procedure Planning Contraindications for Sedation: none Current Medications Reviewed: Yes Notes The planned sedation has been discussed with the patient. Informed Consent was obtained. I have identified the patient, determined the appropriateness of sedation and have assessed the patient immediately prior to the procedure. All medicine(s) and interventions are by my order.
[2021-07-04] MEDS ORDERED: D5W AND 1/4NSS 1,000 ML IV SCH (08:00)
[2021-07-04] MEDS ORDERED: SODIUM CHLORIDE 0.9% 1000ML 1,000 ML IV PRN (08:01)
[2021-07-04] MEDS ORDERED: IRON SUCROSE 100 MG in SYRINGE 0 ML IV ONE (08:30)
--- NOTE | 2021-07-04 08:51 | Procedure Note ---
Angiogram Post Procedure Fluoroscopy Time (minutes): 0.3 Radiation (mGy): 1.99 Post Operative Report Pre & Post Diagnosis Operation Date: 07/04/21 08:00 Pre-Op Diagnosis: Acute kidney injury with acute tubular necrosis Post-Op Diagnosis: Acute kidney injury with acute tubular necrosis I identified the patient and participated in the time-out.: Yes Procedure Operation Date: 07/04/21 08:00 Actual Procedures p Perm Catheter Placement, Right Jugular Vein Approach, Ultrasound localization to Right Jugular Vein, Fluoscopy for Positioning, Moderate Sedation [id number] 0852(Right) - Joon Mattson MD Surgeon Joon Mattson MD Upper Cutter Out Elda Hickey Estimated Blood Loss 3 Findings Consistent with Post-Op Diagnosis Specimens None Anesthesia Type RN Sedation Complications none Disposition Accompanied Patient To Recovery: No Indications Jeff Hamilton is a 55 year old male with renal failure, in need of hemodialysis access. He presents for perm cath placement. Description of Procedure Patient was taken to the angio suite and placed in the supine position. The right side of the neck and chest wall were prepped and draped in a sterile manner. The patient's identity and surgical procedure were verified. Local anesthesia was then administered to the appropriate areas of the neck and chest wall. Ultrasound was then used to locate the right internal jugular vein. The vein compressed easily, had no filing defects, and was patent. The vein was then punctured under direct ultrasound imaging. A guidewire was then passed centrally under fluoroscopic imaging. A stab wound was then made in the anterior chest wall and a 19 cm permcath was passed from the stab wound on the chest wall to the puncture site on the neck. The puncture site was then dilated till the 14Fr peel away sheath was inserted. The permcath was then inserted through the sheath to a central position in the distal superior vena cava. The peel away sheath was then removed. The catheter was then sutured in place using nylon sutures. The puncture was then closed using a 4-0 Vicryl subcuticular suture. Dermabond was used for a dressing on the puncture site. Both ports aspirated and flushed easily and were then packed with heparin. A sterile dressing was applied to the catheter. The patient left the angio suite in good condition and tolerated the procedure well. Dr. Mattson was present and scrubbed for the entirety of the procedure. I attest to the content of the Intraoperative Record and any orders documented therein. Any exceptions are noted below.
--- NOTE | 2021-07-04 08:55 | Post Operative Brief Note ---
Immediate Post Op Note v1 Date of Surgery July 04, 2021 Pre & Post Diagnosis Operation Date: 07/04/21 08:00 Pre-Op Diagnosis: Acute kidney injury with acute tubular necrosis Post-Op Diagnosis: Acute kidney injury with acute tubular necrosis I identified the patient and participated in the time-out.: Yes Procedure Operation Date: 07/04/21 08:00 Actual Procedures p Perm Catheter Placement, Right Jugular Vein Approach, Ultrasound localization to Right Jugular Vein, Fluoscopy for Positioning, Moderate Sedation [id number] 9020(Right) - Joon Mattson MD Surgeon Joon Mattson MD Boat Mechanic MD Karen Estimated Blood Loss 3 Findings Consistent with Post-Op Diagnosis Anesthesia Type RN Sedation Complications none Disposition Accompanied Patient To Recovery: No Disposition: Recovery Room
--- NOTE | 2021-07-04 08:56 | Post Anesthesia Assessment ---
Date of Service July 04, 2021 Post Sedation Assessment Vital Signs Temp Pulse Pulse Pulse Resp BP BP 07/04/21 08:46 76 18 101/64 07/04/21 08:45 76 18 99/64 L 07/04/21 08:40 74 18 99/57 L 07/04/21 08:35 73 20 91/58 L 07/04/21 08:30 79 20 96/63 L 07/04/21 08:25 80 20 129/80 07/04/21 08:17 82 20 120/43 L 07/04/21 07:35 76 07/04/21 07:32 36.5 C 80 18 129/71 07/04/21 07:01 36.4 C L 73 20 125/73 07/04/21 04:28 36.4 C L 76 20 110/69 07/03/21 23:12 80 07/03/21 23:06 36.8 C 82 20 107/66 07/03/21 19:38 36.7 C 94 H 20 116/62 07/03/21 16:32 81 07/03/21 16:10 36.3 C L 84 18 107/59 L 07/03/21 11:55 80 07/03/21 11:15 36.5 C 106 H 92 H 160/79 H Pulse Ox 07/04/21 08:46 95 07/04/21 08:45 95 07/04/21 08:40 96 07/04/21 08:35 98 07/04/21 08:30 98 07/04/21 08:25 98 07/04/21 08:17 95 07/04/21 07:35 07/04/21 07:32 97 07/04/21 07:01 90 07/04/21 04:28 90 07/03/21 23:12 07/03/21 23:06 92 07/03/21 19:38 95 07/03/21 16:32 07/03/21 16:10 91 07/03/21 11:55 07/03/21 11:15 92 Recovery Score Activity: Moves 4 extremities Respiration: Deep Breath/Cough Circulation: +/-20% PreAnes Value Consciousness: Fully Awake Oxygen Saturation: O2 needed for >90% Post Anesthesia Score: 9 Discharge Sedation Level of Care: Fast Track Phase II Post Sedation Plan On clinical assessment, the patient appears to have tolerated the sedation without complications. Patient is recovering as anticipated. Patient will continue to be monitored by nursing and may be discharged when sedation discharge criteria are met per below protocol. Upon Completions of procedure up to 15 minutes continue every 5 minute vital signs and the P.A.R. score; then discharge to a Phase I or Fast Track to Phase II per the following guidelines: * Discharge Patient to appropriate Phase II area if PAR is 8 or greater or return to pre- procedure baseline. The post - procedure orders will be as directed. * If PAR score is less than 8 or not return to pre-procedure baseline then p atient will follow Phase I monitoring till PAR is reached for Phase II. The Phase I may be done in procedure room or may call to secure a Phase I area. * If naloxone or flumazenil are used for reversal, hold in Phase I for continued monitoring from when last reversal dose was given for a minimum of 60 minutes or longer pending the nurse and/or physician discretion of patient condition before discharge to Phase II. Please call the Sedation Physician to re-evaluate and complete post-note for discharge to Phase II area. Do NOT discharge from procedure sedation or Phase 1 until post- sedation evaluation note is complete by procedure /sedation MD Sedation Discharge Instructions to be given to the patient at discharge to home.
[2021-07-04] MEDS: METOCLOPRAMIDE HCL 10 MG TABLET PO SCH ×3 (10:51→20:48)
[2021-07-04] MEDS: GABAPENTIN 100 MG CAP PO SCH ×3 (10:51→20:47)
[2021-07-04] MEDS: levETIRAcetam 500 MG TAB PO SCH ×2 (12:05→20:47)
[2021-07-04] MEDS: oxyCODONE HCL IR 5 MG TAB (IMMEDIATE RELEASE) PO PRN (12:06)
[2021-07-04] MEDS: ROSUVASTATIN CALCIUM 20 MG TAB PO SCH (12:06)
[2021-07-04] MEDS: amLODIPine BESYLATE 5 MG TAB PO SCH (12:06)
[2021-07-04] MEDS: PANTOprazole 40 MG in SYRINGE 0 ML IV SCH ×2 (12:07→20:47)
[2021-07-04] MEDS: FLUTICASONE/VILANTEROL 100/25MCG 14 PUFFS/INHALER INH SCH (12:07)
[2021-07-04] MEDS: INSULIN ASPART PER UNIT SC SCH ×3 (12:41→20:42)
[2021-07-04] MEDS ORDERED: INSULIN GLARGINE SOLOSTAR 100 UNITS/ML 3 ML PEN SC ONE (13:00)
--- NOTE | 2021-07-04 13:21 | Pharmacy Report ---
Pharmacy Glycemic Short Note 2 - Date of Service July 04, 2021 - Glycemic Short BSG Results (Last 24 hours): 07/03/21 07/03/21 07/04/21 16:29 20:28 00:05 Glucose POC Glucose 237 H 174 H 299 H 07/04/21 07/04/21 07/04/21 00:08 00:23 00:38 Glucose 95 POC Glucose 184 H 195 H 07/04/21 07/04/21 07/04/21 05:48 07:18 08:51 Glucose 85 POC Glucose 115 H 139 H 07/04/21 12:07 Glucose POC Glucose 116 H OUTPATIENT ANTIDIABETIC REGIMEN: * Lantus 7 units SQ QPM * Humulog sliding scale ASSESSMENT: * Patient's BSGs yesterday were 68/82 - 93 -237--95 mg/dL. Fasting today was 85 mg/dL and lunch was 116 mg/dL. * Per discussion with provider, patient switched to scheduled regular insulin at midnight. Patient did not receive any of this. * Last dose of basal insulin was 07/02 @ 2100 which was 7 units. * Patient underwent tunneled dialysis catheter placement today with subsequent dialysis. * Will start Lantus conservatively with 3 units (half of home dose). Scale for this evening depending on blood sugar. Max dose today is 6 units and minimum dose today is 3 units. * Novolog with previous features. 07/04/21 * BSGs yesterday were [id number] mg/dL. * Patient received 15 units of insulin yesterday (7 units of Lantus and 8 units of bolus). * Patient's fasting today was 68 mg/dL. Lunch was 93 mg/dL. Loosen Novolog. * After discussion with provider, will switch to scheduled Regular insulin 0-2 units q6 hours tonight at midnight. Patient will be NPO for procedure tomorrow and this will provide more control over BSGs. BACKGROUND * 55 y/o M admitted with possible aspiration pneumonia, nausea/ vomiting and upper GI bleed. Patient is a Type 1 diabetic known to pharmacy glycemic service from recent past admissions. * Patient received 5 units of Lantus last night. Fasting BSG today AM was 217 mg/dl. HS Lantus dose increased to 7 units tonight which is his home basal dose. * He received Novolog 5 units with breakfast this AM which caused his BSG to go low mid-morning. This is from his Novolog CF being too tight. * Novolog CF loosened to 40. Based on past admissions patient needs loose CF and CR coverage with meals. PLAN FOR INPATIENT GLYCEMIC CONTROL: * Basal insulin * Lantus 3 units x 1 * Lantus 0-3 units today depending upon blood sugar. * Bolus insulin * NovoLog per scale ACHS or Q6hrs while NPO * Goal Range: Low 110 mg/dL - High 160 mg/dL * Correction Factor: 55 mg/dL/unit * Nutritional / Prandial insulin per carb ratio of 1 unit per 18 grams CHO consumed PLAN FOR DISCHARGE: * TBD
--- NOTE | 2021-07-04 13:29 | Dialysis Progress Note ---
Date of Service July 04, 2021 Assessment & Plan (1) Acute kidney injury superimposed on CKD: Plan: Patient with stage 2 oligoanuric acute kidney injury on advanced CKD 4 w/ baseline high risk for progression. IVAN due to ischemic ATN in setting of nausea and vomiting for several days. Patient also found to have aspiration pneumonia. Creatinine on admission was 6.1 from a baseline of 3. Creatinine down to 5.7 after receiving IV fluids but worse today to 8s. Given history of metastatic cancer and of the multiple comorbidities, patient may not be a good candidate for dialysis. However he wishes to try and understands risks it may not go well after discussion w/ me; finds these prefereable to no intervention. consent is on chart. Plan trial of HD 4-6 wks then reassess tolerance and plan permanent VA at thattime if interested -labs worse today; I/o incomplete -Renally dose antibiotics for GFR less than 15 mL/min -Monitor input output -Monitor renal function with daily BMP -TDC placed 07/04; first HD same day -no fluid removal today > will look at fluid removal tomorrow >>he wishes to dialyze under my care at [facility] -no PROSPER d/t cancer dx (2) Primary cancer of left lung metastatic to other site: Plan: Patient is status post resection and radiation to the ninth rib. not a candidate for further chemo per oncology. upcomin gPET a few weeks after d/c; multple mets noted on 07/03 CT Admission and Anticipated Discharge Date Admission Date: June 30, 2021 Subjective got TDC this am; seen just prior to dialysis and after start of dialysis at about 0940; no worsening/uncontrolled pain; N stable for now; no sob Review of Systems Review of Systems: All systems reviewed & are unremarkable except as noted in Subjective Physical Exam Constitutional: well nourished, + ill appearing, + frail appearing, cooperative and + lethargic; no acute distress Eyes: EOM intact bilaterally ENMT: Ears: no external ear abnormality Nose: no external nose abnormality Mouth: + dry oral mucous membranes Neck: no nuchal rigidity Respiratory: normal respiratory effort Auscultation: + diminished lung sounds Cardiovascular: Rate/Rhythm: regular rate and regular rhythm Extremities: + edema Gastrointestinal (Abdomen): Inspection/Auscultation: normal bowel sounds Percussion/Palpation: abdomen soft; abdomen nontender Musculoskeletal: Extremities: strength 5/5 throughout Skin: no rashes, warm and dry Neurologic: fewer tremors today Results & Data ([facility]) Vital Signs (Past 12 Hours) Vital Signs Temp Pulse Pulse Pulse Pulse Resp BP 07/04/21 12:29 83 07/04/21 11:55 36.4 C L 75 07/04/21 11:30 83 124/68 07/04/21 11:15 73 119/67 07/04/21 11:00 74 119/67 07/04/21 10:45 72 116/72 07/04/21 10:30 73 125/75 07/04/21 10:15 72 114/75 07/04/21 10:00 75 124/80 07/04/21 09:45 74 121/77 07/04/21 09:10 36.4 C L 78 07/04/21 08:51 77 18 07/04/21 08:46 76 18 07/04/21 08:45 76 18 07/04/21 08:40 74 18 07/04/21 08:35 73 20 07/04/21 08:30 79 20 07/04/21 08:25 80 20 07/04/21 08:17 82 20 07/04/21 07:35 76 07/04/21 07:32 36.5 C 80 18 07/04/21 07:01 36.4 C L 73 20 07/04/21 04:28 36.4 C L 76 20 BP BP Pulse Ox 07/04/21 12:29 07/04/21 11:55 127/75 07/04/21 11:30 07/04/21 11:15 07/04/21 11:00 07/04/21 10:45 07/04/21 10:30 07/04/21 10:15 07/04/21 10:00 07/04/21 09:45 07/04/21 09:10 07/04/21 08:51 103/68 93 07/04/21 08:46 101/64 95 07/04/21 08:45 99/64 L 95 07/04/21 08:40 99/57 L 96 07/04/21 08:35 91/58 L 98 07/04/21 08:30 96/63 L 98 07/04/21 08:25 129/80 98 07/04/21 08:17 120/43 L 95 07/04/21 07:35 07/04/21 07:32 129/71 97 07/04/21 07:01 125/73 90 07/04/21 04:28 110/69 90 Laboratory Results 07/04/21 05:48 07/04/21 05:[address] chest 07/03 1. Increase in size of multiple pleural implants within the left hemithorax and mediastinal lymphadenopathy since PET/CT of February 08, 2021. This suggests progression of metastatic disease. 2. Redemonstration of a destructive left ninth rib lesion. 3. Interstitial and alveolar pulmonary edema. Bilateral lower lobe and right upper lobe airspace opacities which could favor pneumonia although alveolar edema could appear similar. 4. Small left pleural effusion. CT a/p FINDINGS: Mild interlobular septal thickening and groundglass densities within the lung bases. This favors pulmonary edema. There is a trace left pleural effusion. No pneumoperitoneum. No pneumatosis. Mild thickening of the distal esophagus is again noted. Expansion and destructive change is again noted within the left lateral ninth rib. This favors metastatic disease. Moderate body wall edema. Left lower quadrant gastric stimulator device is again noted. Prior cholecystectomy. The unenhanced liver, left adrenal gland, and kidneys unremarkable. Stable benign right adrenal myelolipoma. No renal or ureteral stones. No hydronephrosis. There are few punctate calcifications within the spleen. The pancreas remains atrophic. A few prominent retroperitoneal lymph nodes are noted. No pelvic lymphadenopathy. Mild bladder wall thickening. The prostate gland is mildly enlarged. Suboptimal evaluation for bowel pathology due to the lack of intravenous and oral contrast. However, there is no definite bowel wall thickening or obstruction. Moderate well-formed stool within the colon. The appendix is identified within the right lower quadrant. The appendix measures up to 12 mm in diameter. However, there is no periappendiceal fat stranding. This remains unchanged compared the prior study and is therefore likely chronic. No evidence for acute appendicitis given the lack of adjacent inflammatory change. IMPRESSION: 1. No renal or ureteral stones. No hydronephrosis. 2. Mild bladder wall thickening. This may be related to chronic outlet obstruction. Recommend correlation with urinalysis to exclude a cystitis. 3. Pulmonary edema and a trace left pleural effusion. Patchy groundglass densities at the right lung base are nonspecific but could be due to a pneumonia or the pulmonary edema. 4. No evidence for bowel obstruction. 5. The appendix measures up to 12 mm in diameter. This remains unchanged compared the prior study and is therefore likely chronic. No evidence for acute appendicitis given the lack of adjacent inflammatory change. 6. Redemonstration of the destructive left lateral ninth rib lesion likely representing metastatic disease. 7. Additional findings as described above.
--- NOTE | 2021-07-04 16:53 | Hospitalist Progress Note ---
Date of Service July 04, 2021 Assessment & Plan (1) Acute kidney injury (IVAN) with acute tubular necrosis (ATN): Plan: Acute kidney injury due to ischemic ATN in setting of nausea and vomiting for several days. He has a baseline creatinine of 3 reflecting chronic kidney disease. creatinine up to 81.[address] ac/a/p was taken this am and reveals new pulmonary metastatic disease. Overall prognosis is guarded. No UF removed during first session of HD today. He remains anemic. Cont management per nephrology. (2) Diabetic gastroparesis: Plan: Patient is now tolerating a diet - Antiemetics as needed. GI Stimulator in place. (3) Aspiration pneumonia: Plan: Questionable pneumonia on CT scan, covering with ertapenem pending culture results and clinical improvement given recent symptoms. Cont abx pending clinical improvement and culture results. CT scan suggested interlobular septal thickening and ground glass opacities suggestive of pulmonary edema. He also has a small left pleural effusion present. These findings are likely related to lung malignancy and new worsening renal failure. He also may have some component of bilateral lower lobe and right upper lobe airspace opacities favoring pneumonia, as noted above, although alveolar edema could appear similar per radiology reading. He remains on antibiotic therapy and continues to oxygenate in the low 90s on room air. Hemodialysis to help with volume management. Would hold on diuretic at this point in setting of underlying worsened renal failure unless patient has acute tachypnea or other respiratory issues currently not present. Procalcitonin. Recent respiratory symptoms were more suggestive of pneumonia, however, edema may also be present. Continuing to follow closely and convert to oral once more stable on current care plan. (4) Diabetes: Plan: Hypoglycemia resolved this morning. Caution with basal bolus insulin moving forward given recent episodes of lows. Continue to monitor closely. (5) Primary cancer of left lung metastatic to other site: Plan: Recently finished radiation treatments and is scheduling for a PET scan in 1 month. New metastatic disease on left lung seen. Results were shared with his oncologist. Continue current therapy per oncology/radiation oncology. (6) HTN (hypertension): Plan: On it, stable, lisinopril on hold in setting of worsening renal failure. Continue amlodipine 10 mg daily and Catapres TTS weekly patch per home regimen (7) Anemia: Plan: Chronic, stable, multifactorial. No indication for transfusion at this time. Continue monitor (8) Chronic pain: Plan: Currently managed with gabapentin 200 mg p.o. 3 times daily which is a reduction from his home dose of 400 mg p.o. 3 times daily in setting of renal failure. (9) Seizure disorder: Plan: Chronic, stable, no evidence of seizure activity. Continue Keppra per home regimen at reduced dose of 500 mg p.o. 3 times daily in setting of renal failure (10) DVT prophylaxis: Plan: SCDs, chemoprophylaxis contraindicated in setting of recent questionable bloody vomitus and anemia Full code Disposition-to home when medically stable and improved [facility]al[facility] and [facility]ticipated Discharge Date Admission Date: June 30, 2021 Subjective 55 yo with ARF, h/o metastatic lung cancer. Creatinine is worse today at 8 , underwent dialysis catheter placement and subsequent HD afterwards post dialysis he was groggy and hungry requiring 2L NC feels general pain as before Review of Systems Review of Systems: All systems reviewed and negative except as indicated above. Physical Exam Physical Exam: CONSTITUTIONAL: WNWD, vitals as above, generally ill- appearing, no acute distress, fatigued EYES: normal conjunctivae, no scleral icterus ENT: external ear and nose normal, NECK: trachea midline, RESPIRATORY: rhonchi at bases bilaterally, no rales or wheezes, normal respiratory effort CARDIOVASCULAR: regular rate and rhythm, S1 and 2 heard without murmurs, gallops or rubs, no JVD, no peripheral edema, CHEST: inspection of chest was normal GASTROINTESTINAL: soft, nontender, ND, no guarding MUSCULOSKELETAL: strength 5/5 throughout, head is normocephalic and atraumatic, no gross focal deficits. SKIN: warm and dry NEUROLOGIC: CN 2-12 grossly intact, somnolent, normal speech, no tremor, no gross focal deficits. PSYCHIATRIC: somnolent but cooperative and oriented to person, place and time. Results & Data Results & Data ([facility] [place]) Vital Signs (Past 12 Hours) Vital Signs Temp Pulse Pulse Pulse Pulse Resp BP 07/04/21 16:00 36.7 C 87 18 07/04/21 15:34 81 07/04/21 12:29 83 07/04/21 11:55 36.4 C L 75 07/04/21 11:30 83 124/68 07/04/21 11:15 73 119/67 07/04/21 11:00 74 119/67 07/04/21 10:45 72 116/72 07/04/21 10:30 73 125/75 07/04/21 10:15 72 114/75 07/04/21 10:00 75 124/80 07/04/21 09:45 74 121/77 07/04/21 09:10 36.4 C L 78 07/04/21 08:51 77 18 07/04/21 08:46 76 18 07/04/21 08:45 76 18 07/04/21 08:40 74 18 07/04/21 08:35 73 20 07/04/21 08:30 79 20 07/04/21 08:25 80 20 07/04/21 08:17 82 20 07/04/21 07:35 76 07/04/21 07:32 36.5 C 80 18 07/04/21 07:01 36.4 C L 73 20 BP BP Pulse Ox 07/04/21 16:00 115/66 91 07/04/21 15:34 07/04/21 12:29 07/04/21 11:55 127/75 07/04/21 11:30 07/04/21 11:15 07/04/21 11:00 07/04/21 10:45 07/04/21 10:30 07/04/21 10:15 07/04/21 10:00 07/04/21 09:45 07/04/21 09:10 07/04/21 08:51 103/68 93 07/04/21 08:46 101/64 95 07/04/21 08:45 99/64 L 95 07/04/21 08:40 99/57 L 96 07/04/21 08:35 91/58 L 98 07/04/21 08:30 96/63 L 98 07/04/21 08:25 129/80 98 07/04/21 08:17 120/43 L 95 07/04/21 07:35 07/04/21 07:32 129/71 97 07/04/21 07:01 125/73 90 Laboratory Results Short CBC 07/04/21 Range/Units 05:48 WBC 4.48 L (4.8-10.8) K/uL Hgb 7.6 L (14.0-18.0) g/dL Hct 23.3 L (42-52) % Plt Count 210 (130-400) K/uL BMP 07/04/21 07/04/21 00:38 05:48 Sodium 134 L Potassium 4.5 Chloride 105 Carbon Dioxide 19 L BUN 49 H Creatinine 8.13 H* D Glucose 95 85 Calcium 7.3 L Medications Administered Current Inpatient Medications Acetaminophen (Acetaminophen 325 Mg Tab) 650 mg PO Q4H PRN PRN Reason: Pain or Fever Stop: 07/30/21 23:01 Amlodipine Besylate (Amlodipine Besylate 5 Mg Tab) 10 mg PO DAILY [facility] Stop: 07/31/21 08:59 Last Admin: 07/04/21 12:06 Dose: 10 mg Documented by: Clonidine HCl (Clonidine Hcl 0.2 Mg/24 Hr Transderm Sys) 1 patch TD Fr@2200 [facility] Stop: 07/30/21 21:59 Last Admin: 07/01/21 01:42 Dose: 1 patch Documented by: Dextrose (Dextrose 50% 50 Ml Syringe) 25 - 50 ml IV UD PRN; Protocol PRN Reason: Hypoglycemia Protocol Stop: 07/30/21 20:44 Ertapenem (Ertapenem Consult Active) 1 ea N/A UD PRN PRN Reason: Consult Stop: 08/02/21 08:43 Fluticasone/Vilanterol (Fluticasone/Vilanterol 100/25mcg 14 Puffs/Inhaler) 1 puffs INH DAILY [facility] Stop: 07/31/21 08:59 Last Admin: 07/04/21 12:07 Dose: 1 puffs Documented by: Gabapentin (Gabapentin 100 Mg Cap) 200 mg PO TID [facility] Stop: 07/31/21 08:59 Last Admin: 07/04/21 14:15 Dose: 200 mg Documented by: Glucagon (Glucagon For Inj 1 Mg Vial) 1 mg IM UD PRN; Protocol PRN Reason: Hypoglycemia Protocol Stop: 07/30/21 20:44 Glucagon (Glucagon For Inj 1 Mg Vial) 1 mg SQ UD PRN; Protocol PRN Reason: Hypoglycemia Protocol Stop: 07/30/21 23:01 Glucose (Glucose 40% Gel 15 Gm Tube) 15 - 30 gm PO UD PRN; Protocol PRN Reason: Hypoglycemia Protocol Stop: 07/30/21 20:44 Last Admin: 07/02/21 11:02 Dose: 15 gm Documented by: Glucose (Glucose 10 Tabs/Tube) 4 - 8 tabs PO UD PRN; Protocol PRN Reason: Hypoglycemia Protocol Stop: 07/30/21 20:44 Promethazine HCl 12.5 mg/ (Sodium Chloride) 50.5 mls @ 202 mls/hr IV Q6H PRN PRN Reason: Nausea And Vomiting Stop: 07/30/21 23:01 Last Infusion: 07/02/21 03:12 Dose: Infused Documented by: Ertapenem 500 mg/ Syringe 5 mls @ 2 mls/min IV Q24H [facility] Stop: 07/08/21 20:59 Last Admin: 07/03/21 20:59 Dose: 2 mls/min Documented by: Pantoprazole Sodium 40 mg/ (Syringe) 10 mls @ 5 mls/min IV BID [facility] Stop: 07/31/21 08:59 Last Admin: 07/04/21 12:07 Dose: 5 mls/min Documented by: Clindamycin Phosphate (Cleocin) 600 mg in 54 mls @ 100 mls/hr IV PREOP [facility] Stop: 07/05/21 05:59 Last Infusion: 07/04/21 09:15 Dose: Infused Documented by: Dextrose/Sodium Chloride (D5w And 1/4nss) 1,000 mls @ 0 mls/hr IV .Q0M [facility] Stop: 08/03/21 07:59 Last Infusion: 07/04/21 08:04 Dose: Infused Documented by: Insulin Aspart (Insulin Aspart Per Unit) 0 units SC ACHS [facility] Stop: 08/03/21 11:29 Last Admin: 07/04/21 12:41 Dose: 4 units Documented by: Insulin Glargine (Insulin Glargine Solostar 100 Units/Ml 3 Ml Pen) 0 units SC HS [facility]; Protocol Stop: 07/04/21 21:01 Levetiracetam (Levetiracetam 500 Mg Tab) 500 mg PO BID [facility] Stop: 07/31/21 08:59 Last Admin: 07/04/21 12:05 Dose: 500 mg Documented by: Metoclopramide HCl (Metoclopramide Hcl 10 Mg Tablet) 10 mg PO TID [facility] Stop: 07/31/21 08:59 Last Admin: 07/04/21 14:15 Dose: 10 mg Documented by: Miscellaneous (Carbohydrates For Hypoglycemia ) 15 - 30 gm PO UD PRN PRN Reason: Hypoglycemia Treatment Stop: 07/30/21 20:44 Last Admin: 07/02/21 10:05 Dose: 15 gm Documented by: Gilberto (Remove Clonidine Patch) 1 ea N/A Fr@2159 [facility] Stop: 07/30/21 21:58 Last Admin: 06/30/21 22:17 Dose: 1 ea Documented by: Gilberto (Check Clonidine Patch Placement) 1 ea N/A QS [facility] Stop: 07/31/21 00:00 Last Admin: 07/04/21 15:41 Dose: 1 ea Documented by: Gilberto Information (Pharmacy Glycemic Mgmt Consult) 1 ea N/A UD PRN PRN Reason: Consult Stop: 08/01/21 10:32 Oxycodone HCl (Oxycodone Hcl Ir 5 Mg Tab (Immediate Release)) 5 mg PO QID PRN PRN Reason: Severe Pain (Scale Score 7-10) Stop: 07/15/21 00:00 Last Admin: 07/04/21 12:06 Dose: 5 mg Documented by: Rosuvastatin Calcium (Rosuvastatin Calcium 20 Mg Tab) 20 mg PO DAILY [facility] Stop: 07/31/21 08:59 Last Admin: 07/04/21 12:06 Dose: 20 mg Documented by: (1) Diabetes Diabetes mellitus complication status: with other specified complication Diabetes mellitus type: type 1 Qualified Code(s): E10.69 - Type 1 diabetes mellitus with other specified complication (2) Chronic pain Chronic pain type: other chronic pain Qualified Code(s): G89.29 - Other chronic pain
[2021-07-04] MEDS: CARBOHYDRATES FOR HYPOGLYCEMIA PO PRN (20:07)
[2021-07-04] MEDS: ERTAPENEM SODIUM 500 MG in SYRINGE 0 ML IV SCH (20:47)
[2021-07-04] MEDS ORDERED: INSULIN GLARGINE SOLOSTAR 100 UNITS/ML 3 ML PEN SC SCH (21:00)
[2021-07-05 07:56] LABS: BUN Creatinine Ratio 6.3 (10-20); Calcium 7.2 mg/dl (8.5-10.1); Creatinine Clr Calc Pharmacy 10.9 ml/min; Est GFR (African American) 8.6 ml/min; Est GFR (Non-African American) 7.5 ml/min; Magnesium 1.9 mg/dl (1.7-2.4); Phosphorus 6.3 mg/dl (2.5-4.9); Potassium 4.4 mmol/L (3.5-5.1)
[2021-07-05] MEDS: PROMETHAZINE HCL 12.5 MG in SODIUM CHLORIDE 0.9% 50 ML IV PRN (07:57)
[2021-07-05] MEDS: CHECK CLONIDINE PATCH PLACEMENT SCH ×3 (07:59→21:35)
[2021-07-05] MEDS: oxyCODONE HCL IR 5 MG TAB (IMMEDIATE RELEASE) PO PRN (08:00)
[2021-07-05] MEDS: levETIRAcetam 500 MG TAB PO SCH ×2 (08:00→21:24)
[2021-07-05] MEDS: PANTOprazole 40 MG in SYRINGE 0 ML IV SCH ×2 (08:00→21:24)
[2021-07-05] MEDS: ROSUVASTATIN CALCIUM 20 MG TAB PO SCH (08:01)
[2021-07-05] MEDS: GABAPENTIN 100 MG CAP PO SCH ×3 (08:01→21:24)
[2021-07-05] MEDS: METOCLOPRAMIDE HCL 10 MG TABLET PO SCH ×3 (08:01→21:24)
[2021-07-05] MEDS: FLUTICASONE/VILANTEROL 100/25MCG 14 PUFFS/INHALER INH SCH (08:02)
[2021-07-05] MEDS: INSULIN ASPART PER UNIT SC SCH ×4 (08:38→21:17)
[2021-07-05 08:59] LABS: Hematocrit (blood only) 25.1 % (42-52); Hemoglobin 8.1 g/dL (14.0-18.0); Mean Corpuscular Hemoglobin 29.7 pg (25-34); Mean Corpuscular Hgb Conc 32.3 g/dL (32-36); Mean Corpuscular Volume 91.9 fL (80-100); Mean Platelet Volume 12.2 fL (7.4-10.4); Platelet Count 208 K/uL (130-400); RDW Coefficient of Variation 14.2 % (11.5-14.5); RDW Standard Deviation 47.5 fL (36.4-46.3); Red Blood Count 2.73 M/uL (4.7-6.1); White Blood Count 5.19 K/uL (4.8-10.8)
[2021-07-05] MEDS ORDERED: INSULIN GLARGINE SOLOSTAR 100 UNITS/ML 3 ML PEN SC ONE (09:00)
[2021-07-05] MEDS ORDERED: HEPARIN SOD (PORCINE) 1000 UNIT/ML IV SCH (09:00)
[2021-07-05 10:24] LABS: Hepatitis B Surf Ag Rflx Conf Neg (Neg)
[2021-07-05 10:33] LABS: Hepatitis B Surface Ab Quant 10.78 mIU/mL (>or=10mIU/mL Immune); Hepatitis B Surface Antibody Immune
[2021-07-05] MEDS: HEPARIN SOD (PORCINE) 1000 UNIT/ML IV SCH ×2 (11:10→11:11)
--- NOTE | 2021-07-05 13:23 | Pharmacy Report ---
Pharmacy Glycemic Short Note 2 - Date of Service July 05, 2021 - Glycemic Short BSG Results (Last 24 hours): 07/04/21 07/04/21 07/04/21 16:36 20:00 20:02 Glucose POC Glucose 119 H 48 L* 49 L* 07/04/21 07/05/21 07/05/21 20:23 06:28 07:43 Glucose 163 H POC Glucose 78 188 H 07/05/21 12:39 Glucose POC Glucose 116 H OUTPATIENT ANTIDIABETIC REGIMEN: * Lantus 7 units SQ QPM * Humulog sliding scale ASSESSMENT: * Patient's BSGs yesterday were [id number]. * Patient received 15 units of insulin yesterday (3 units of basal and 12 units of bolus). * Fasting today is 188 mg/dL. * Will continue with Lantus 3 units and scale for tonight. * For Novolog --- hypoglycemic event at HS attributed to 135 gm of carbohydrates eaten at dinnertime. patient received 8 units of Novolog for that. Difficult to loosen CR any more. Will up goal range to 120-160 mg/dL PLUS limit bolus dosing to 5 units at a time. 07/05/21 * Patient's BSGs yesterday were 68/82 - 93 -237--95 mg/dL. Fasting today was 85 mg/dL and lunch was 116 mg/dL. * Per discussion with provider, patient switched to scheduled regular insulin at midnight. Patient did not receive any of this. * Last dose of basal insulin was 07/02 @ 2100 which was 7 units. * Patient underwent tunneled dialysis catheter placement today with subsequent dialysis. * Will start Lantus conservatively with 3 units (half of home dose). Scale for this evening depending on blood sugar. Max dose today is 6 units and minimum dose today is 3 units. * Novolog with previous features. 07/04/21 * BSGs yesterday were [phone] mg/dL. * Patient received 15 units of insulin yesterday (7 units of Lantus and 8 units of bolus). * Patient's fasting today was 68 mg/dL. Lunch was 93 mg/dL. Loosen Novolog. * After discussion with provider, will switch to scheduled Regular insulin 0-2 units q6 hours tonight at midnight. Patient will be NPO for procedure tomorrow and this will provide more control over BSGs. BACKGROUND * 55 y/o M admitted with possible aspiration pneumonia, nausea/ vomiting and upper GI bleed. Patient is a Type 1 diabetic known to pharmacy glycemic service from recent past admissions. * Patient received 5 units of Lantus last night. Fasting BSG today AM was 217 mg/dl. HS Lantus dose increased to 7 units tonight which is his home basal dose. * He received Novolog 5 units with breakfast this AM which caused his BSG to go low mid-morning. This is from his Novolog CF being too tight. * Novolog CF loosened to 40. Based on past admissions patient needs loose CF and CR coverage with meals. PLAN FOR INPATIENT GLYCEMIC CONTROL: * Basal insulin * Lantus 3 units x 1 * Lantus 0-3 units today depending upon blood sugar. * Bolus insulin * NovoLog per scale ACHS or Q6hrs while NPO * Goal Range: Low 110 mg/dL - High 160 mg/dL * Correction Factor: 55 mg/dL/unit * Nutritional / Prandial insulin per carb ratio of 1 unit per 18 grams CHO consumed PLAN FOR DISCHARGE: * TBD
--- NOTE | 2021-07-05 13:24 | Hospitalist Progress Note ---
Date of Service July 05, 2021 Assessment & Plan (1) Acute kidney injury (IVAN) with acute tubular necrosis (ATN): Plan: Acute kidney injury due to ischemic ATN in setting of nausea and vomiting for several days. He has a baseline creatinine of 3 reflecting chronic kidney disease. Started HD on 07/04 with some improvement in creat to 7.44. CT chest this admission reveals new pulmonary metastatic disease. Overall prognosis is guarded. No UF removed during first session of HD, 700cc off today. He remains anemic. Cont management per nephrology. Pulmonary edema present initially and with increased SOB now will try Lasix 60mg IV one dose and monitor for response. Cont strict I/Os and daily standing weights. Discussed this plan with horologist. Currently not in respiratory distress or requiring any supplemental oxygen, however, will place him on a bedside continuous pulse oximeter to monitor this closely. (2) Diabetic gastroparesis: Plan: Patient is now tolerating a diet - Antiemetics as needed. GI Stimulator in place. (3) Aspiration pneumonia: Plan: Questionable pneumonia on CT scan, covering with ertapenem pending clinical improvement which is slow going. Procalcitonin negative. Will plan on total 7 days. Currently on Day 6/7. CT scan suggested interlobular septal thickening and ground glass opacities suggestive of pulmonary edema. He also has a small left pleural effusion present. These findings are likely related to lung malignancy and new worsening renal failure. He also may have some component of bilateral lower lobe and right upper lobe airspace opacities favoring pneumonia, as noted above, although alveolar edema could appear similar per radiology reading. He remains on antibiotic therapy and continues to oxygenate in the low 90s on room air. Hemodialysis to help with volume management. (4) Pulmonary edema: Plan: plan as above. (5) Diabetes: Plan: Hypoglycemia this admission. Type I diabetes, glycemic pharmacy for management. Continue to monitor closely. (6) Primary cancer of left lung metastatic to other site: Plan: Recently finished radiation treatments and is scheduling for a PET scan in 1 month. New metastatic disease on left lung seen. Results were shared with his oncologist. Continue current therapy per oncology/radiation oncology. (7) HTN (hypertension): Plan: On it, stable, lisinopril on hold in setting of worsening renal failure. Continue amlodipine 10 mg daily and Catapres TTS weekly patch per home regimen (8) Anemia: Plan: Chronic, stable, multifactorial. No indication for transfusion at this time. N o PROSPER given because of cancer. Continue monitor (9) Chronic pain: Plan: Currently managed with gabapentin 200 mg p.o. 3 times daily which is a reduction from his home dose of 400 mg p.o. 3 times daily in setting of renal failure. Refusing APAP, has oxy PRN if needed and he is aware it is there if he needs it. (10) Seizure disorder: Plan: Chronic, stable, no evidence of seizure activity. Continue Keppra per home regimen at reduced dose of 500 mg p.o. 3 times daily in setting of renal failure (11) DVT prophylaxis: Plan: SCDs, chemoprophylaxis contraindicated in setting of recent questionable bloody vomitus and anemia Full code Disposition-to home when medically stable and improved. Still full code and trying treatments including hemodialysis despite guarded prognosis. Will continue this for now. Idalmis Lares DO [facility] Admission and Anticipated Discharge Date Admission Date: June 30, 2021 Subjective 55 yo with ARF, h/o metastatic lung cancer. He is very tired and reporting generalized pain He is trying to hold off on pain meds and "tough it out" declines Tylenol for the time being reports nausea, states there is fluid in his throat increased SOB this morning, "because of the fluid" reports an improvement in productive coughing since being on the abx Review of Systems Review of Systems: All systems reviewed and negative except as indicated above. Physical Exam Physical Exam: CONSTITUTIONAL: WNWD, vitals as above, generally ill-appe aring, no acute distress, fatigued EYES: normal conjunctivae, no scleral icterus ENT: external ear and nose normal, NECK: trachea midline, RESPIRATORY: diminished breath sounds at bases bilaterally, no rales or wheezes, normal respiratory effort, no supplemental oxygen at this time. CARDIOVASCULAR: regular rate and rhythm, S1 and 2 heard without murmurs, gallops or rubs, no JVD, no peripheral edema, CHEST: inspection of chest was normal, HD catheter to right anterior chest wall. GASTROINTESTINAL: soft, nontender, ND, no guarding MUSCULOSKELETAL: strength 5/5 throughout, head is normocephalic and atraumatic, no gross focal deficits. SKIN: warm and dry NEUROLOGIC: CN 2-12 grossly intact, fatigued, normal speech, no tremor, no gross focal deficits. PSYCHIATRIC: somnolent but cooperative and oriented to person, place and time. Results & Data Results & Data ([facility]) Vital Signs (Past 12 Hours) Vital Signs Temp Pulse Pulse Pulse Resp BP BP 07/05/21 11:40 83 138/76 07/05/21 11:20 84 139/86 07/05/21 11:00 84 130/69 07/05/21 10:40 85 118/69 07/05/21 10:20 83 101/65 07/05/21 10:00 85 107/61 07/05/21 09:40 89 109/65 07/05/21 09:32 89 07/05/21 09:20 89 123/73 07/05/21 09:07 36.9 C 89 07/05/21 07:55 36.9 C 89 18 132/67 07/05/21 04:16 36.7 C 89 20 147/77 H Pulse Ox 07/05/21 11:40 07/05/21 11:20 07/05/21 11:00 07/05/21 10:40 07/05/21 10:20 07/05/21 10:00 07/05/21 09:40 07/05/21 09:32 07/05/21 09:20 07/05/21 09:07 07/05/21 07:55 94 07/05/21 04:16 92 Laboratory Results Short CBC 07/05/21 Range/Units 06:33 WBC 5.19 (4.8-10.8) K/uL Hgb 8.1 L (14.0-18.0) g/dL Hct 25.1 L (42-52) % Plt Count 208 (130-400) K/uL BMP 07/05/21 06:28 Sodium 135 L Potassium 4.4 Chloride 106 Carbon Dioxide 21 BUN 47 H Creatinine 7.44 H* D Glucose 163 H Calcium 7.2 L Medications Administered Current Inpatient Medications Acetaminophen (Acetaminophen 325 Mg Tab) 650 mg PO Q4H PRN PRN Reason: Pain or Fever Stop: 07/30/21 23:01 Amlodipine Besylate (Amlodipine Besylate 5 Mg Tab) 10 mg PO DAILY [facility] Stop: 07/31/21 08:59 Last Admin: 07/04/21 12:06 Dose: 10 mg Documented by: Clonidine HCl (Clonidine Hcl 0.2 Mg/24 Hr Transderm Sys) 1 patch TD Fr@2200 [facility] Stop: 07/30/21 21:59 Last Admin: 07/01/21 01:42 Dose: 1 patch Documented by: Dextrose (Dextrose 50% 50 Ml Syringe) 25 - 50 ml IV UD PRN; Protocol PRN Reason: Hypoglycemia Protocol Stop: 07/30/21 20:44 Ertapenem (Ertapenem Consult Active) 1 ea N/A UD PRN PRN Reason: Consult Stop: 08/02/21 08:43 Fluticasone/Vilanterol (Fluticasone/Vilanterol 100/25mcg 14 Puffs/Inhaler) 1 puffs INH DAILY [facility] Stop: 07/31/21 08:59 Last Admin: 07/05/21 08:02 Dose: 1 puffs Documented by: Furosemide (Furosemide 40 Mg/4 Ml Vial) 60 mg IV ONE ONE Stop: 07/05/21 13:31 Gabapentin (Gabapentin 100 Mg Cap) 200 mg PO TID [facility] Stop: 07/31/21 08:59 Last Admin: 07/05/21 08:01 Dose: 200 mg Documented by: Glucagon (Glucagon For Inj 1 Mg Vial) 1 mg IM UD PRN; Protocol PRN Reason: Hypoglycemia Protocol Stop: 07/30/21 20:44 Glucagon (Glucagon For Inj 1 Mg Vial) 1 mg SQ UD PRN; Protocol PRN Reason: Hypoglycemia Protocol Stop: 07/30/21 23:01 Glucose (Glucose 40% Gel 15 Gm Tube) 15 - 30 gm PO UD PRN; Protocol PRN Reason: Hypoglycemia Protocol Stop: 07/30/21 20:44 Last Admin: 07/02/21 11:02 Dose: 15 gm Documented by: Glucose (Glucose 10 Tabs/Tube) 4 - 8 tabs PO UD PRN; Protocol PRN Reason: Hypoglycemia Protocol Stop: 07/30/21 20:44 Heparin Sodium (Porcine) (Heparin Sod (Porcine) 1000 Unit/Ml) 1,000 units IV TODAY@0900 [facility] Stop: 07/05/21 23:59 Last Admin: 07/05/21 11:10 Dose: Not Given Documented by: Heparin Sodium (Porcine) (Heparin Sod (Porcine) 1000 Unit/Ml) 400 units IV TODAY@0900,1000,1100 [facility] Stop: 07/05/21 23:59 Last Admin: 07/05/21 11:11 Dose: Not Given Documented by: Promethazine HCl 12.5 mg/ (Sodium Chloride) 50.5 mls @ 202 mls/hr IV Q6H PRN PRN Reason: Nausea And Vomiting Stop: 07/30/21 23:01 Last Infusion: 07/05/21 08:40 Dose: Infused Documented by: Ertapenem 500 mg/ Syringe 5 mls @ 2 mls/min IV Q24H [facility] Stop: 07/08/21 20:59 Last Admin: 07/04/21 20:47 Dose: 2 mls/min Documented by: Pantoprazole Sodium 40 mg/ (Syringe) 10 mls @ 5 mls/min IV BID [facility] Stop: 07/31/21 08:59 Last Admin: 07/05/21 08:00 Dose: 5 mls/min Documented by: Dextrose/Sodium Chloride (D5w And 1/4nss) 1,000 mls @ 0 mls/hr IV .Q0M [facility] Stop: 08/03/21 07:59 Last Infusion: 07/04/21 08:04 Dose: Infused Documented by: Insulin Aspart (Insulin Aspart Per Unit) 0 units SC ACHS [facility] Stop: 08/03/21 11:29 Last Admin: 07/05/21 08:38 Dose: 4 units Documented by: Levetiracetam (Levetiracetam 500 Mg Tab) 500 mg PO BID [facility] Stop: 07/31/21 08:59 Last Admin: 07/05/21 08:00 Dose: 500 mg Documented by: Metoclopramide HCl (Metoclopramide Hcl 10 Mg Tablet) 10 mg PO TID [facility] Stop: 07/31/21 08:59 Last Admin: 07/05/21 08:01 Dose: 10 mg Documented by: Carmencellaneous (Carbohydrates For Hypoglycemia ) 15 - 30 gm PO UD PRN PRN Reason: Hypoglycemia Treatment Stop: 07/30/21 20:44 Last Admin: 07/04/21 20:07 Dose: 30 gm Documented by: Gilberto (Remove Clonidine Patch) 1 ea N/A Fr@2157 [facility] Stop: 07/30/21 21:58 Last Admin: 06/30/21 22:17 Dose: 1 ea Documented by: Carmencellaneous (Check Clonidine Patch Placement) 1 ea N/A QS [facility] Stop: 07/31/21 00:00 Last Admin: 07/05/21 07:59 Dose: 1 ea Documented by: Miscellaneous Information (Pharmacy Glycemic Mgmt Consult) 1 ea N/A UD PRN PRN Reason: Consult Stop: 08/01/21 10:32 Oxycodone HCl (Oxycodone Hcl Ir 5 Mg Tab (Immediate Release)) 5 mg PO QID PRN PRN Reason: Severe Pain (Scale Score 7-10) Stop: 07/15/21 00:00 Last Admin: 07/05/21 08:00 Dose: 5 mg Documented by: Rosuvastatin Calcium (Rosuvastatin Calcium 20 Mg Tab) 20 mg PO DAILY [facility] Stop: 07/31/21 08:59 Last Admin: 07/05/21 08:01 Dose: 20 mg Documented by: (1) Diabetes Diabetes mellitus complication status: with other specified complication Diabetes mellitus type: type 1 Qualified Code(s): E10.69 - Type 1 diabetes mellitus with other specified complication (2) Chronic pain Chronic pain type: other chronic pain Qualified Code(s): G89.29 - Other chronic pain
[2021-07-05] MEDS: amLODIPine BESYLATE 5 MG TAB PO SCH (13:26)
[2021-07-05] MEDS ORDERED: FUROSEMIDE 40 MG/4 ML VIAL IV ONE (13:30)
--- NOTE | 2021-07-05 14:44 | Dialysis Progress Note ---
Date of Service July 05, 2021 Assessment & Plan (1) ESRD (end stage renal disease) on dialysis: Plan: Patient with stage 2 oligoanuric acute kidney injury on advanced CKD 4 w/ baseline high risk for progression > now ESRD. IVAN due to ischemic ATN in setting of nausea and vomiting for several days. Patient also found to have aspiration pneumonia and more recently pulmonary edema. Creatinine on admission was 6.1 from a baseline of 3. Creatinine down to 5.7 after receiving IV fluids but worsened to 8s and w/ ologanuria. Given history of metastatic cancer and of the multiple comorbidities, patient may not be a good candidate for dialysis. However he wishes to try and understands risks it may not go well after discussion w/ me; finds these prefereable to no intervention. consent is on chart. Plan trial of HD 4-6 wks then reassess tolerance and plan permanent VA at thattime if interested -Renally dose antibiotics for GFR less than 15 mL/min -Monitor renal function with daily BMP -TDC placed 07/04; first HD same day -HD again today but no UF -no fluid removal today > will look at fluid removal tomorrow >>he wishes to dialyze under my care at [facility] after d/c -no PROSPER d/t cancer hx -can give lasix 60 mg IV for dyspnea; low threshold for PE eval care coordinated w/ Dr Lares (2) Primary cancer of left lung metastatic to other site: Plan: Patient is status post resection and radiation to the ninth rib. not a candidate for further chemo per oncology. upcomin gPET a few weeks after d/c; multple mets noted on 07/03 CT Admission and Anticipated Discharge Date Admission Date: June 30, 2021 Subjective no acute interval events; no bleeding concerns; less tired than yesterday; some dypsnea now Review of Systems Review of Systems: All systems reviewed & are unremarkable except as noted in Subjective Physical Exam Constitutional: well nourished, + ill appearing, + frail appearing and c ooperative; no acute distress Eyes: EOM intact bilaterally ENMT: Ears: no external ear abnormality Nose: no external nose abnormality Mouth: + dry oral mucous membranes Neck: no nuchal rigidity Respiratory: normal respiratory effort Auscultation: + diminished lung sounds Cardiovascular: Rate/Rhythm: regular rate and regular rhythm Extremities: + edema Gastrointestinal (Abdomen): Inspection/Auscultation: normal bowel sounds Percussion/Palpation: abdomen soft; abdomen nontender Musculoskeletal: Extremities: strength 5/5 throughout Skin: no rashes, warm and dry Results & Data ([facility]) Vital Signs (Past 12 Hours) Vital Signs Temp Pulse Pulse Pulse Resp BP BP 07/05/21 11:40 83 138/76 07/05/21 11:20 84 139/86 07/05/21 11:00 84 130/69 07/05/21 10:40 85 118/69 07/05/21 10:20 83 101/65 07/05/21 10:00 85 107/61 07/05/21 09:40 89 109/65 07/05/21 09:32 89 07/05/21 09:20 89 123/73 07/05/21 09:07 36.9 C 89 07/05/21 07:55 36.9 C 89 18 132/67 07/05/21 04:16 36.7 C 89 20 147/77 H Pulse Ox 07/05/21 11:40 07/05/21 11:20 07/05/21 11:00 07/05/21 10:40 07/05/21 10:20 07/05/21 10:00 07/05/21 09:40 07/05/21 09:32 07/05/21 09:20 07/05/21 09:07 07/05/21 07:55 94 07/05/21 04:16 92 Laboratory Results 07/05/21 06:33 07/05/21 06:28
[2021-07-05] MEDS ORDERED: INSULIN GLARGINE SOLOSTAR 100 UNITS/ML 3 ML PEN SC SCH (21:00)
[2021-07-05] MEDS: ERTAPENEM SODIUM 500 MG in SYRINGE 0 ML IV SCH (21:31)
[2021-07-06 06:11] LABS: Hematocrit (blood only) 23.7 % (42-52); Hemoglobin 7.6 g/dL (14.0-18.0); Mean Corpuscular Hemoglobin 29.1 pg (25-34); Mean Corpuscular Hgb Conc 32.1 g/dL (32-36); Mean Corpuscular Volume 90.8 fL (80-100); Mean Platelet Volume 11.7 fL (7.4-10.4); Platelet Count 198 K/uL (130-400); RDW Coefficient of Variation 13.9 % (11.5-14.5); Red Blood Count 2.61 M/uL (4.7-6.1); White Blood Count 5.56 K/uL (4.8-10.8)
[2021-07-06 06:39] LABS: BUN Creatinine Ratio 5.7 (10-20); Calcium 7.5 mg/dl (8.5-10.1); Creatinine Clr Calc Pharmacy 15.3 ml/min; Est GFR (African American) 13.1 ml/min; Est GFR (Non-African American) 11.3 ml/min; Potassium 3.9 mmol/L (3.5-5.1)
[2021-07-06] MEDS ORDERED: SODIUM CHLORIDE 0.9% 1000ML 1,000 ML IV PRN (06:59)
[2021-07-06] MEDS ORDERED: HEPARIN SOD (PORCINE) 1000 UNIT/ML IV ONE (06:59)
[2021-07-06] MEDS ORDERED: IRON SUCROSE 100 MG in SYRINGE 0 ML IV SCH (08:00)
[2021-07-06] MEDS: CHECK CLONIDINE PATCH PLACEMENT SCH ×3 (08:33→21:24)
[2021-07-06] MEDS: INSULIN ASPART PER UNIT SC SCH ×4 (08:33→20:39)
[2021-07-06] MEDS: amLODIPine BESYLATE 5 MG TAB PO SCH (08:33)
[2021-07-06] MEDS: HEPARIN SOD (PORCINE) 1000 UNIT/ML IV SCH ×2 (10:04→11:53)
--- NOTE | 2021-07-06 11:56 | Nephrology Progress Note ---
Date of Service July 06, 2021 Assessment & Plan (1) ESRD (end stage renal disease) on dialysis: Plan: Patient with stage 2 oligoanuric acute kidney injury on advanced CKD 4 w/ baseline high risk for progression > now ESRD. ischemic ATN in setting of nausea and vomiting for several days on underlying advanced diabetic nephropathy. Patient also found to have aspiration pneumonia and more recently pulmonary edema. Creatinine on admission was 6.1 from a baseline of 3. Creatinine down to 5.7 after receiving IV fluids but worsened to 8s and w/ oligoanuria. Given history of metastatic cancer and of the multiple comorbidities, patient may not be a good candidate for dialysis. However he wishes to try and understands risks it may not go well after discussion w/ me; finds these prefereable to no intervention. consent is on chart. Plan trial of HD 4-6 wks then reassess tolerance and discuss permanent vasc access at that time -Renally dose antibiotics for GFR less than 15 mL/min -Monitor renal function with daily BMP -TDC placed 07/04; first HD same day -HD again today w/ goal UF 2.5L as tolerated >>he wishes to dialyze under my care at [facility] after d/c -no PROSPER d/t cancer hx > monitor anemia frequently as he will be transfusion dependent (2) Primary cancer of left lung metastatic to other site: Plan: Patient is status post resection and radiation to the ninth rib. not a candidate for further chemo per oncology. upcomin gPET a few weeks after d/c; multple mets noted on 07/03 CT Admission and Anticipated Discharge Date Admission Date: June 30, 2021 Subjective seen on rounds at about 0710; c/o ongoing N and lethargy, c/o visual hallucin ations, c/o fatigue > "other than that I'm doing great" Review of Systems Review of Systems: All systems reviewed & are unremarkable except as noted in Subjective Physical Exam 2 Constitutional: well nourished, + ill appearing, + frail appearing and cooperative; no acute distress Eyes: EOM intact bilaterally ENMT: Ears: no external ear abnormality Nose: no external nose abnormality Mouth: + dry oral mucous membranes Neck: no nuchal rigidity Respiratory: normal respiratory effort Auscultation: + diminished lung sounds and + rhonchi (exp) Cardiovascular: Rate/Rhythm: regular rate and regular rhythm Extremities: + edema Gastrointestinal (Abdomen): Inspection/Auscultation: normal bowel sounds Percussion/Palpation: abdomen soft; abdomen nontender Musculoskeletal: Extremities: strength 5/5 throughout Skin: no rashes, warm and dry Results & Data ([facility]) Vital Signs (Past 12 Hours) Vital Signs Temp Pulse Pulse Pulse Resp BP BP 07/06/21 11:20 87 148/83 H 07/06/21 11:00 82 138/79 07/06/21 10:40 85 139/82 07/06/21 10:20 83 132/75 07/06/21 10:00 84 128/82 07/06/21 09:40 84 121/93 07/06/21 09:20 87 147/94 H 07/06/21 09:00 92 H 166/95 H 07/06/21 08:48 37.1 C 92 H 07/06/21 07:03 36.9 C 89 18 147/83 H 07/06/21 04:10 37.0 C 70 18 148/76 H 07/06/21 03:48 Pulse Ox 07/06/21 11:20 07/06/21 11:00 07/06/21 10:40 07/06/21 10:20 07/06/21 10:00 07/06/21 09:40 07/06/21 09:20 07/06/21 09:00 07/06/21 08:48 07/06/21 07:03 94 07/06/21 04:10 95 07/06/21 03:48 90 Laboratory Results 07/06/21 05:32 07/06/21 05:32
[2021-07-06] MEDS: GABAPENTIN 100 MG CAP PO SCH ×3 (12:03→20:41)
[2021-07-06] MEDS: ROSUVASTATIN CALCIUM 20 MG TAB PO SCH (12:04)
[2021-07-06] MEDS: INSULIN GLARGINE SOLOSTAR 100 UNITS/ML 3 ML PEN SC SCH ×2 (14:31→20:42)
[2021-07-06] MEDS: PANTOprazole 40 MG in SYRINGE 0 ML IV SCH ×2 (14:32→20:43)
[2021-07-06] MEDS: METOCLOPRAMIDE HCL 10 MG TABLET PO SCH ×3 (14:33→20:43)
[2021-07-06] MEDS: FLUTICASONE/VILANTEROL 100/25MCG 14 PUFFS/INHALER INH SCH (14:33)
[2021-07-06] MEDS: levETIRAcetam 500 MG TAB PO SCH ×2 (14:33→20:42)
--- NOTE | 2021-07-06 16:58 | Hospitalist Progress Note ---
Date of Service July 06, 2021 Assessment & Plan (1) Acute kidney injury (IVAN) with acute tubular necrosis (ATN): Plan: Acute kidney injury due to ischemic ATN in setting of nausea and vomiting for several days. He has a baseline creatinine of 3 reflecting chronic kidney disease. Started HD on 07/04 with some improvement in creat from 7.[address] chest this admission reveals new pulmonary metastatic disease. Overall prognosis is guarded. Discussed this with patient today. Volume management with UF removal in HD. He remains anemic; iron infusion given.no PROSPER given cancer dx. Cont management per nephrology. Pulmonary edema, anuric and lasix was not effective yesterday. Cont strict I/Os and daily standing weights. 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 Currently not in respiratory distress nut is requiring 2LPM via nasal canula. (2) Diabetic gastroparesis: Plan: Patient is now tolerating a diet - Antiemetics as needed. GI Stimulator in place. (3) Aspiration pneumonia: Plan: Questionable pneumonia on CT scan, covering with ertapenem pending clinical improvement which is slow going. Procalcitonin negative. Completed 7 days of ertapenem with little improvement. It is more likely that his hypoxia and SOB and cough are coming from pulmonary edema. Cont HD for volume management. (4) Pulmonary edema: Plan: plan as above. (5) Diabetes: Plan: Hypoglycemia this admission. Type I diabetes, glycemic pharmacy for management. Continue to monitor closely. (6) Primary cancer of left lung metastatic to other site: Plan: Recently finished radiation treatments and is scheduling for a PET scan in 1 month. New metastatic disease on left lung seen. Results were shared with his oncologist and with patient. cont per Oncology. (7) HTN (hypertension): Plan: chronic, stable, lisinopril on hold in setting of worsening renal failure. Continue amlodipine 10 mg daily and Catapres TTS weekly patch per home regimen (8) Anemia: Plan: Chronic, stable, multifactorial. No indication for transfusion at this time. No PROSPER given because of cancer. Continue monitor (9) Chronic pain: Plan: Currently managed with gabapentin 200 mg p.o. 3 times daily which is a reduction from his home dose of 400 mg p.o. 3 times daily in setting of renal failure. Refusing APAP, has oxy PRN if needed and he is aware it is there if he needs it. (10) Seizure disorder: Plan: Chronic, stable, no evidence of seizure activity. Continue Keppra per home regimen at reduced dose of 500 mg p.o. 3 times daily in setting of renal failure (11) DVT prophylaxis: Plan: SCDs, chemoprophylaxis contraindicated in setting of recent questionable bloody vomitus and anemia Full code Disposition-to home when medically stable and improved. Still full code and trying treatments including hemodialysis despite guarded prognosis. Will continue this for now. Idalmis Lares DO [facility] Hospitalist Admission and Anticipated Discharge Date Admission Date: June 30, 2021 Subjective 55 yo with ARF, h/o metastatic lung cancer. Improved and appears brighter today still feels "fluid rattling around in chest" "feels like pop rocks in there" denies chest pain we discussed the findings of likely metastatic disease in CT chest from the other day He verbalized understanding. tolerating PO Review of Systems Review of Systems: All systems reviewed & are unremarkable except as noted in Subjective Physical Exam Physical Exam: CONSTITUTIONAL: WNWD, vitals as above, NAD, appears clinically improved. EYES: normal conjunctivae, no scleral icterus ENT: external ear and nose normal, NECK: trachea midline, RESPIRATORY: diminished breath sounds at bases bilaterally, no rales or wheezes, normal respiratory effort, no supplemental oxygen at this time. CARDIOVASCULAR: regular rate and rhythm, S1 and 2 heard without murmurs, gallops or rubs, no JVD, no peripheral edema, CHEST: inspection of chest was normal, HD catheter to right anterior chest wall. GASTROINTESTINAL: soft, nontender, ND, no guarding MUSCULOSKELETAL: strength 5/5 throughout, head is normocephalic and atraumatic, no gross focal deficits. SKIN: warm and dry NEUROLOGIC: CN 2-12 grossly intact, fatigued, normal speech, no tremor, no gross focal deficits. PSYCHIATRIC: somnolent but cooperative and oriented to person, place and time. Results & Data Results & Data ([facility] [place]) Vital Signs (Past 12 Hours) Vital Signs Temp Pulse Pulse Pulse Resp BP BP 07/06/21 15:00 36.9 C 87 18 149/74 H 07/06/21 13:05 37.2 C 86 07/06/21 12:40 81 150/85 H 07/06/21 12:20 81 140/84 07/06/21 12:00 83 144/85 H 07/06/21 11:40 87 148/83 H 07/06/21 11:20 87 148/83 H 07/06/21 11:00 82 138/79 07/06/21 10:40 85 139/82 07/06/21 10:20 83 132/75 07/06/21 10:00 84 128/82 07/06/21 09:40 84 121/93 07/06/21 09:20 87 147/94 H 07/06/21 09:00 92 H 166/95 H 07/06/21 08:48 37.1 C 92 H 07/06/21 07:03 36.9 C 89 18 BP Pulse Ox 07/06/21 15:00 92 07/06/21 13:05 172/99 H 07/06/21 12:40 07/06/21 12:20 07/06/21 12:00 07/06/21 11:40 07/06/21 11:20 07/06/21 11:00 07/06/21 10:40 07/06/21 10:20 07/06/21 10:00 07/06/21 09:40 07/06/21 09:20 07/06/21 09:00 07/06/21 08:48 07/06/21 07:03 147/83 H 94 Laboratory Results Short CBC 07/06/21 Range/Units 05:32 WBC 5.56 (4.8-10.8) K/uL Hgb 7.6 L (14.0-18.0) g/dL Hct 23.7 L (42-52) % Plt Count 198 (130-400) K/uL BMP 07/06/21 05:32 Sodium 138 Potassium 3.9 Chloride 107 Carbon Dioxide 25 BUN 30 H Creatinine 5.27 H* D Glucose 145 H Calcium 7.5 L Medications Administered Current Inpatient Medications Acetaminophen (Acetaminophen 325 Mg Tab) 650 mg PO Q4H PRN PRN Reason: Pain or Fever Stop: 07/30/21 23:01 Amlodipine Besylate (Amlodipine Besylate 5 Mg Tab) 10 mg PO DAILY DAMIR Stop: 07/31/21 08:59 Last Admin: 07/06/21 08:33 Dose: Not Given Documented by: Clonidine HCl (Clonidine Hcl 0.2 Mg/24 Hr Transderm Sys) 1 patch TD Fr@2200 DAMIR Stop: 07/30/21 21:59 Last Admin: 07/01/21 01:42 Dose: 1 patch Documented by: Dextrose (Dextrose 50% 50 Ml Syringe) 25 - 50 ml IV UD PRN; Protocol PRN Reason: Hypoglycemia Protocol Stop: 07/30/21 20:44 Ertapenem (Ertapenem Consult Active) 1 ea N/A UD PRN PRN Reason: Consult Stop: 08/02/21 08:43 Fluticasone/Vilanterol (Fluticasone/Vilanterol 100/25mcg 14 Puffs/Inhaler) 1 puffs INH DAILY DAMIR Stop: 07/31/21 08:59 Last Admin: 07/06/21 14:33 Dose: 1 puffs Documented by: Gabapentin (Gabapentin 100 Mg Cap) 200 mg PO TID DAMIR Stop: 07/31/21 08:59 Last Admin: 07/06/21 14:33 Dose: 200 mg Documented by: Glucagon (Glucagon For Inj 1 Mg Vial) 1 mg IM UD PRN; Protocol PRN Reason: Hypoglycemia Protocol Stop: 07/30/21 20:44 Glucagon (Glucagon For Inj 1 Mg Vial) 1 mg SQ UD PRN; Protocol PRN Reason: Hypoglycemia Protocol Stop: 07/30/21 23:01 Glucose (Glucose 40% Gel 15 Gm Tube) 15 - 30 gm PO UD PRN; Protocol PRN Reason: Hypoglycemia Protocol Stop: 07/30/21 20:44 Last Admin: 07/02/21 11:02 Dose: 15 gm Documented by: Glucose (Glucose 10 Tabs/Tube) 4 - 8 tabs PO UD PRN; Protocol PRN Reason: Hypoglycemia Protocol Stop: 07/30/21 20:44 Promethazine HCl 12.5 mg/ (Sodium Chloride) 50.5 mls @ 202 mls/hr IV Q6H PRN PRN Reason: Nausea And Vomiting Stop: 07/30/21 23:01 Last Infusion: 07/05/21 08:40 Dose: Infused Documented by: Ertapenem 500 mg/ Syringe 5 mls @ 2 mls/min IV Q24H DAMIR Stop: 07/08/21 20:59 Last Admin: 07/05/21 21:31 Dose: 2 mls/min Documented by: Pantoprazole Sodium 40 mg/ (Syringe) 10 mls @ 5 mls/min IV BID [facility] Stop: 07/31/21 08:59 Last Admin: 07/06/21 14:32 Dose: 5 mls/min Documented by: Dextrose/Sodium Chloride (D5w And 1/4nss) 1,000 mls @ 0 mls/hr IV .Q0M [facility] Stop: 08/03/21 07:59 Last Infusion: 07/04/21 08:04 Dose: Infused Documented by: Insulin Aspart (Insulin Aspart Per Unit) 0 units SC ACHS [facility] Stop: 08/03/21 11:29 Last Admin: 07/06/21 14:31 Dose: Not Given Documented by: Insulin Glargine (Insulin Glargine Solostar 100 Units/Ml 3 Ml Pen) 3 units SC BID [facility]; Protocol Stop: 08/05/21 08:59 Last Admin: 07/06/21 14:31 Dose: 3 units Documented by: Levetiracetam (Levetiracetam 500 Mg Tab) 500 mg PO BID [facility] Stop: 07/31/21 08:59 Last Admin: 07/06/21 14:33 Dose: 500 mg Documented by: Metoclopramide HCl (Metoclopramide Hcl 10 Mg Tablet) 10 mg PO TID [facility] Stop: 07/31/21 08:59 Last Admin: 07/06/21 14:36 Dose: Not Given Documented by: Miscellaneous (Carbohydrates For Hypoglycemia ) 15 - 30 gm PO UD PRN PRN Reason: Hypoglycemia Treatment Stop: 07/30/21 20:44 Last Admin: 07/04/21 20:07 Dose: 30 gm Documented by: Miscellaneous (Remove Clonidine Patch) 1 ea N/A Fr@2159 [facility] Stop: 07/30/21 21:58 Last Admin: 06/30/21 22:17 Dose: 1 ea Documented by: Miscellaneous (Check Clonidine Patch Placement) 1 ea N/A QS [facility] Stop: 07/31/21 00:00 Last Admin: 07/06/21 14:33 Dose: 1 ea Documented by: Miscellaneous Information (Pharmacy Glycemic Mgmt Consult) 1 ea N/A UD PRN PRN Reason: Consult Stop: 08/01/21 10:32 Oxycodone HCl (Oxycodone Hcl Ir 5 Mg Tab (Immediate Release)) 5 mg PO QID PRN PRN Reason: Severe Pain (Scale Score 7-10) Stop: 07/15/21 00:00 Last Admin: 07/05/21 08:00 Dose: 5 mg Documented by: Rosuvastatin Calcium (Rosuvastatin Calcium 20 Mg Tab) 20 mg PO DAILY DAMIR Stop: 07/31/21 08:59 Last Admin: 07/06/21 12:04 Dose: Not Given Documented by: (1) Diabetes Diabetes mellitus complication status: with other specified complication Diabetes mellitus type: type 1 Qualified Code(s): E10.69 - Type 1 diabetes mellitus with other specified complication (2) Chronic pain Chronic pain type: other chronic pain Qualified Code(s): G89.29 - Other chronic pain
[2021-07-06] MEDS: ERTAPENEM SODIUM 500 MG in SYRINGE 0 ML IV SCH (20:41)
[2021-07-07] MEDS: PROMETHAZINE HCL 12.5 MG in SODIUM CHLORIDE 0.9% 50 ML IV PRN (00:58)
[2021-07-07] MEDS: oxyCODONE HCL IR 5 MG TAB (IMMEDIATE RELEASE) PO PRN ×2 (00:58→22:12)
[2021-07-07 06:55] LABS: Mean Corpuscular Volume 90.6 fL (80-100); Mean Platelet Volume 11.1 fL (7.4-10.4); Platelet Count 209 K/uL (130-400); RDW Standard Deviation 46.5 fL (36.4-46.3); Red Blood Count 2.76 M/uL (4.7-6.1); White Blood Count 5.02 K/uL (4.8-10.8)
[2021-07-07] MEDS ORDERED: HEPARIN SOD (PORCINE) 1000 UNIT/ML IV ONE (07:04)
[2021-07-07] MEDS ORDERED: SODIUM CHLORIDE 0.9% 1000ML 1,000 ML IV PRN (07:04)
[2021-07-07 07:15] LABS: BUN Creatinine Ratio 4.2 (10-20); Calcium 7.4 mg/dl (8.5-10.1); Creatinine Clr Calc Pharmacy 18.7 ml/min; Est GFR (African American) 16.7 ml/min; Est GFR (Non-African American) 14.4 ml/min; Magnesium 1.8 mg/dl (1.7-2.4); Phosphorus 4.3 mg/dl (2.5-4.9)
[2021-07-07] MEDS: METOCLOPRAMIDE HCL 10 MG TABLET PO SCH ×3 (07:53→21:17)
[2021-07-07] MEDS: ROSUVASTATIN CALCIUM 20 MG TAB PO SCH (07:53)
[2021-07-07] MEDS: PANTOprazole 40 MG in SYRINGE 0 ML IV SCH ×2 (07:53→22:12)
[2021-07-07] MEDS: levETIRAcetam 500 MG TAB PO SCH ×2 (07:53→21:16)
[2021-07-07] MEDS: GABAPENTIN 100 MG CAP PO SCH ×3 (07:53→21:17)
[2021-07-07] MEDS: FLUTICASONE/VILANTEROL 100/25MCG 14 PUFFS/INHALER INH SCH (07:54)
[2021-07-07] MEDS: CHECK CLONIDINE PATCH PLACEMENT SCH ×3 (07:54→23:06)
[2021-07-07] MEDS: INSULIN ASPART PER UNIT SC SCH ×4 (08:42→21:18)
[2021-07-07] MEDS: INSULIN GLARGINE SOLOSTAR 100 UNITS/ML 3 ML PEN SC SCH ×2 (08:49→21:19)
[2021-07-07] MEDS: amLODIPine BESYLATE 5 MG TAB PO SCH (08:49)
--- NOTE | 2021-07-07 11:27 | Pharmacy Report ---
Pharmacy Glycemic Short Note 2 - Date of Service July 07, 2021 - Glycemic Short BSG Results (Last 24 hours): 07/06/21 07/06/21 07/06/21 13:17 16:29 20:26 Glucose POC Glucose 132 H 267 H 190 H 07/06/21 07/07/21 07/07/21 23:49 06:32 08:40 Glucose 104 H POC Glucose 94 146 H OUTPATIENT ANTIDIABETIC REGIMEN: * Lantus 7 units SQ QPM * Humulog sliding scale * HbA1c: 9.0% (06/30/21) -- unreliable in the setting of ESRD, now on HD ASSESSMENT: 07/07/21 * Mr Hamilton's BSGs continue to be labile, but were not unreasonable most of the day yesterday. * Pt received another HD session yesterday. * Pt appears to be tolerating diet. * Will continue to follow. 07/05 * Patient's BSGs yesterday were [id number]/78. * Patient received 15 units of insulin yesterday (3 units of basal and 12 units of bolus). * Fasting today is 188 mg/dL. * Will continue with Lantus 3 units and scale for tonight. * For Novolog --- hypoglycemic event at HS attributed to 135 gm of carbohydrates eaten at dinnertime. patient received 8 units of Novolog for that. Difficult to loosen CR any more. Will up goal range to 120-160 mg/dL PLUS limit bolus dosing to 5 units at a time. 07/04 * Patient's BSGs yesterday were 68/82 - 93 -237--95 mg/dL. Fasting today was 85 mg/dL and lunch was 116 mg/dL. * Per discussion with provider, patient switched to scheduled regular insulin at midnight. Patient did not receive any of this. * Last dose of basal insulin was 07/02 @ 2100 which was 7 units. * Patient underwent tunneled dialysis catheter placement today with subsequent dialysis. * Will start Lantus conservatively with 3 units (half of home dose). Scale for this evening depending on blood sugar. Max dose today is 6 units and minimum dose today is 3 units. * Novolog with previous features. 07/03 * BSGs yesterday were [phone] mg/dL. * Patient received 15 units of insulin yesterday (7 units of Lantus and 8 units of bolus). * Patient's fasting today was 68 mg/dL. Lunch was 93 mg/dL. Loosen Novolog. * After discussion with provider, will switch to scheduled Regular insulin 0-2 units q6 hours tonight at midnight. Patient will be NPO for procedure tomorrow and this will provide more control over BSGs. BACKGROUND * 55 y/o M admitted with possible aspiration pneumonia, nausea/ vomiting and upper GI bleed. Patient is a Type 1 diabetic known to pharmacy glycemic service from recent past admissions. * Patient received 5 units of Lantus last night. Fasting BSG today AM was 217 mg/dl. HS Lantus dose increased to 7 units tonight which is his home basal dose. * He received Novolog 5 units with breakfast this AM which caused his BSG to go low mid-morning. This is from his Novolog CF being too tight. * Novolog CF loosened to 40. Based on past admissions patient needs loose CF and CR coverage with meals. PLAN FOR INPATIENT GLYCEMIC CONTROL: * Basal insulin * Lantus 3 units SQ BID * Bolus insulin * NovoLog per scale ACHS or Q6hrs while NPO * Goal Range: Low 110 mg/dL - High 160 mg/dL * Correction Factor: 55 mg/dL/unit * Nutritional / Prandial insulin per carb ratio of 1 unit per 18 grams CHO consumed
[2021-07-07] MEDS: HEPARIN SOD (PORCINE) 1000 UNIT/ML IV SCH (12:25)
--- NOTE | 2021-07-07 14:21 | Hospitalist Progress Note ---
Date of Service July 07, 2021 Assessment & Plan (1) Acute kidney injury (IVAN) with acute tubular necrosis (ATN): Plan: Acute kidney injury due to ischemic ATN in setting of nausea and vomiting for several days. He has a baseline creatinine of 3 reflecting chronic kidney disease. Started HD on 07/04 with some improvement in creat to 4.[address] chest this admission reveals new pulmonary metastatic disease. Overall prognosis is guarded. Discussed this with patient who verbalized understanding. He is interested in continuing with dialysis trial. Volume management with UF removal in HD. He remains anemic; iron infusion given. No PROSPER given cancer dx. Cont management per nephrology. Pulmonary edema, anuric (made small amount of urine today) and lasix was not effective when given IV. Cont strict I/Os and daily standing weights. Discussed this plan with chart reader. Currently not in respiratory distress nut is requiring 2LPM via nasal canula. May require 2 step evaluation at time of discharge. Requires a set hemodialysis appointment prior to discharge at [facility] dialysis center, case management is aware. Will be on a MWF schedule. (2) Diabetic gastroparesis: Plan: Patient is now tolerating a diet - Antiemetics as needed. GI Stimulator in place. (3) Aspiration pneumonia: Plan: Questionable pneumonia on CT scan. Procalcitonin negative. Completed 7 days of ertapenem with little improvement. It is more likely that his hypoxia, cough and SOB and cough are coming from pulmonary edema. Cont HD for volume management. (4) Pulmonary edema: Plan: plan as above. (5) Diabetes: Plan: Hypoglycemia this admission. Type I diabetes, glycemic pharmacy for management. Continue to monitor closely. (6) Primary cancer of left lung metastatic to other site: Plan: Recently finished radiation treatments and is scheduling for a PET scan in 1 month. New metastatic disease on left lung seen. Results were shared with his oncologist and with patient. cont per Oncology. (7) HTN (hypertension): Plan: chronic, stable, lisinopril on hold in setting of worsening renal failure. Continue amlodipine 10 mg daily and Catapres TTS weekly patch per home regimen (8) Anemia: Plan: Chronic, stable, multifactorial. No indication for transfusion at this time. No PROSPER given because of cancer. Continue monitor (9) Chronic pain: Plan: Currently managed with gabapentin 200 mg p.o. 3 times daily which is a reduction from his home dose of 400 mg p.o. 3 times daily in setting of renal failure. Re fusing APAP, has oxy PRN if needed and he is aware it is there if he needs it. (10) Seizure disorder: Plan: Chronic, stable, no evidence of seizure activity. Continue Keppra per home regimen at reduced dose of 500 mg p.o. 3 times daily in setting of renal failure (11) DVT prophylaxis: Plan: SCDs, chemoprophylaxis contraindicated in setting of recent questionable bloody vomitus and anemia Full code Disposition-to home when medically stable and improved. Still full code and trying treatments including hemodialysis despite guarded prognosis. Will continue this for now. Idalmis Lares DO [facility] Hospitalist Admission and Anticipated Discharge Date Admission Date: June 30, 2021 Subjective 55 yo with ARF, h/o metastatic lung cancer. Improved and appears brighter today still feels "fluid rattling around in chest" "feels like pop rocks in there" denies chest pain we discussed the findings of likely metastatic disease in CT chest from the other day He verbalized understanding. tolerating PO Review of Systems Review of Systems: Patent unable to give ROS 2/2 somnolent. Physical Exam Physical Exam: CONSTITUTIONAL: WNWD, vitals as above, somnolent. EYES: normal conjunctivae, no scleral icterus ENT: external ear and nose normal, NECK: trachea midline, RESPIRATORY: difficult to assess as patient is in a deep sleep with upper airway sounds CARDIOVASCULAR: regular rate and rhythm, S1 and 2 heard without murmurs, gallops or rubs, no JVD, no peripheral edema, CHEST: inspection of chest was normal, HD catheter to right anterior chest wall. GASTROINTESTINAL: soft, nontender, ND, no guarding MUSCULOSKELETAL: sleeping, unable to assess. SKIN: warm and dry NEUROLOGIC: sleeping, unable to assess PSYCHIATRIC: somnolent Results & Data Results & Data ([facility]) Vital Signs (Past 12 Hours) Vital Signs Temp Pulse Pulse Pulse Resp BP BP 07/07/21 13:00 90 157/88 H 07/07/21 12:40 89 158/87 H 07/07/21 12:20 65 148/87 H 07/07/21 12:00 51 L 144/83 H 07/07/21 11:40 53 L 154/92 H 07/07/21 11:20 71 165/96 H 07/07/21 11:00 82 144/97 H 07/07/21 10:47 91 H 07/07/21 10:40 62 150/104 H 07/07/21 10:20 91 H 157/94 H 07/07/21 10:00 84 152/87 H 07/07/21 09:40 85 173/100 H 07/07/21 09:23 87 177/109 H 07/07/21 09:16 37.1 C 89 07/07/21 07:00 37.0 C 87 20 180/112 H 07/07/21 03:35 37.0 C 85 18 154/80 H BP Pulse Ox 07/07/21 13:00 07/07/21 12:40 07/07/21 12:20 07/07/21 12:00 07/07/21 11:40 07/07/21 11:20 07/07/21 11:00 07/07/21 10:47 07/07/21 10:40 07/07/21 10:20 07/07/21 10:00 07/07/21 09:40 07/07/21 09:23 07/07/21 09:16 07/07/21 07:00 185/105 H 98 07/07/21 03:35 95 Laboratory Results Short CBC 07/07/21 Range/Units 06:32 WBC 5.02 (4.8-10.8) K/uL Hgb 8.0 L (14.0-18.0) g/dL Hct 25.0 L (42-52) % Plt Count 209 (130-400) K/uL BMP 07/07/21 06:32 Sodium 137 Potassium 4.0 Chloride 105 Carbon Dioxide 26 BUN 18 Creatinine 4.32 H D Glucose 104 H Calcium 7.4 L Medications Administered Current Inpatient Medications Acetaminophen (Acetaminophen 325 Mg Tab) 650 mg PO Q4H PRN PRN Reason: Pain or Fever Stop: 07/30/21 23:01 Amlodipine Besylate (Amlodipine Besylate 5 Mg Tab) 10 mg PO DAILY [facility] Stop: 07/31/21 08:59 Last Admin: 07/07/21 08:49 Dose: Not Given Documented by: Clonidine HCl (Clonidine Hcl 0.2 Mg/24 Hr Transderm Sys) 1 patch TD Fr@2200 [facility] Stop: 07/30/21 21:59 Last Admin: 07/01/21 01:42 Dose: 1 patch Documented by: Dextrose (Dextrose 50% 50 Ml Syringe) 25 - 50 ml IV UD PRN; Protocol PRN Reason: Hypoglycemia Protocol Stop: 07/30/21 20:44 Fluticasone/Vilanterol (Fluticasone/Vilanterol 100/25mcg 14 Puffs/Inhaler) 1 puffs INH DAILY [facility] Stop: 07/31/21 08:59 Last Admin: 07/07/21 07:54 Dose: 1 puffs Documented by: Gabapentin (Gabapentin 100 Mg Cap) 200 mg PO TID [facility] Stop: 07/31/21 08:59 Last Admin: 07/07/21 14:06 Dose: 200 mg Documented by: Glucagon (Glucagon For Inj 1 Mg Vial) 1 mg IM UD PRN; Protocol PRN Reason: Hypoglycemia Protocol Stop: 07/30/21 20:44 Glucagon (Glucagon For Inj 1 Mg Vial) 1 mg SQ UD PRN; Protocol PRN Reason: Hypoglycemia Protocol Stop: 07/30/21 23:01 Glucose (Glucose 40% Gel 15 Gm Tube) 15 - 30 gm PO UD PRN; Protocol PRN Reason: Hypoglycemia Protocol Stop: 07/30/21 20:44 Last Admin: 07/02/21 11:02 Dose: 15 gm Documented by: Glucose (Glucose 10 Tabs/Tube) 4 - 8 tabs PO UD PRN; Protocol PRN Reason: Hypoglycemia Protocol Stop: 07/30/21 20:44 Promethazine HCl 12.5 mg/ (Sodium Chloride) 50.5 mls @ 202 mls/hr IV Q6H PRN PRN Reason: Nausea And Vomiting Stop: 07/30/21 23:01 Last Infusion: 07/07/21 01:22 Dose: Infused Documented by: Pantoprazole Sodium 40 mg/ (Syringe) 10 mls @ 5 mls/min IV BID [facility] Stop: 07/31/21 08:59 Last Admin: 07/07/21 07:53 Dose: 5 mls/min Documented by: Dextrose/Sodium Chloride (D5w And 1/4nss) 1,000 mls @ 0 mls/hr IV .Q0M [facility] Stop: 08/03/21 07:59 Last Infusion: 07/04/21 08:04 Dose: Infused Documented by: Insulin Aspart (Insulin Aspart Per Unit) 0 units SC ACHS [facility] Stop: 08/03/21 11:29 Last Admin: 07/07/21 14:10 Dose: 8 units Documented by: Insulin Glargine (Insulin Glargine Solostar 100 Units/Ml 3 Ml Pen) 3 units SC BID [facility]; Protocol Stop: 08/05/21 08:59 Last Admin: 07/07/21 08:49 Dose: 3 units Documented by: Levetiracetam (Levetiracetam 500 Mg Tab) 500 mg PO BID [facility] Stop: 07/31/21 08:59 Last Admin: 07/07/21 07:53 Dose: 500 mg Documented by: Metoclopramide HCl (Metoclopramide Hcl 10 Mg Tablet) 10 mg PO TID [facility] Stop: 07/31/21 08:59 Last Admin: 07/07/21 14:06 Dose: 10 mg Documented by: Miscellaneous (Carbohydrates For Hypoglycemia ) 15 - 30 gm PO UD PRN PRN Reason: Hypoglycemia Treatment Stop: 07/30/21 20:44 Last Admin: 07/04/21 20:07 Dose: 30 gm Documented by: Miscellaneous (Remove Clonidine Patch) 1 ea N/A Fr@2159 [facility] Stop: 07/30/21 21:58 Last Admin: 06/30/21 22:17 Dose: 1 ea Documented by: Miscellaneous (Check Clonidine Patch Placement) 1 ea N/A QS [facility] Stop: 07/31/21 00:00 Last Admin: 07/07/21 14:06 Dose: 1 ea Documented by: Miscellaneous Information (Pharmacy Glycemic Mgmt Consult) 1 ea N/A UD PRN PRN Reason: Consult Stop: 08/01/21 10:32 Oxycodone HCl (Oxycodone Hcl Ir 5 Mg Tab (Immediate Release)) 5 mg PO QID PRN PRN Reason: Severe Pain (Scale Score 7-10) Stop: 07/15/21 00:00 Last Admin: 07/07/21 00:58 Dose: 5 mg Documented by: Rosuvastatin Calcium (Rosuvastatin Calcium 20 Mg Tab) 20 mg PO DAILY [facility] Stop: 07/31/21 08:59 Last Admin: 07/07/21 07:53 Dose: 20 mg Documented by: (1) Diabetes Diabetes mellitus complication status: with other specified complication Diabetes mellitus type: type 1 Qualified Code(s): E10.69 - Type 1 diabetes mellitus with other specified complication (2) Chronic pain Chronic pain type: other chronic pain Qualified Code(s): G89.29 - Other chronic pain
--- NOTE | 2021-07-07 18:03 | Nephrology Progress Note ---
Date of Service July 07, 2021 Assessment & Plan (1) ESRD (end stage renal disease) on dialysis: Plan: Patient with stage 2 oligoanuric acute kidney injury on advanced CKD 4 w/ baseline high risk for progression > now ESRD. ischemic ATN in setting of nausea and vomiting for several days on underlying advanced diabetic nephropathy. Patient also found to have aspiration pneumonia and more recently pulmonary edema. Creatinine on admission was 6.1 from a baseline of 3. Creatinine down to 5.7 after receiving IV fluids but worsened to 8s and w/ oligoanuria. Given history of metastatic cancer and of the multiple comorbidities, patient may not be a good candidate for dialysis. However he wishes to try and understands risks it may not go well after discussion w/ me; finds these prefereable to no intervention. consent is on chart. Plan trial of HD 4-6 wks then reassess tolerance and discuss permanent vasc access at that time -Renally dose antibiotics for GFR less than 15 mL/min -Monitor renal function with daily BMP -TDC placed 07/04; first HD same day -HD again today w/ goal UF 2.5L as tolerated >>he wishes to dialyze under my care at [facility] after d/c -no PROSPER d/t cancer hx > monitor anemia frequently as he will be transfusion dependent (2) Primary cancer of left lung metastatic to other site: Plan: Patient is status post resection and radiation to the ninth rib. not a candidate for further chemo per oncology. upcomin gPET a few weeks after d/c; multple mets noted on 07/03 CT Admission and Anticipated Discharge Date Admission Date: June 30, 2021 Subjective seen on rounds this am 0715; still sob, N; tired, cough, sore trhoat Review of Systems Review of Systems: All systems reviewed & are unremarkable except as noted in Subjective Physical Exam Constitutional: well nourished, + ill appearing, + frail appearing and cooperative; no acute distress Eyes: EOM intact bilaterally ENMT: Ears: no external ear abnormality Nose: no external nose abnormality Mouth: + dry oral mucous membranes Neck: no nuchal rigidity Respiratory: normal respiratory effort Auscultation: + diminished lung sounds Cardiovascular: Rate/Rhythm: regular rate and regular rhythm Extremities: + edema (less today) Gastrointestinal (Abdomen): Inspection/Auscultation: normal bowel sounds Percussion/Palpation: abdomen soft; abdomen nontender Musculoskeletal: Extremities: strength 5/5 throughout Skin: no rashes, warm and dry Results & Data ([facility]) Vital Signs (Past 12 Hours) Vital Signs Temp Pulse Pulse Pulse Resp BP BP 07/07/21 15:00 37.1 C 90 18 176/83 H 07/07/21 13:45 37.1 C 89 07/07/21 13:00 90 157/88 H 07/07/21 12:40 89 158/87 H 07/07/21 12:20 65 148/87 H 07/07/21 12:00 51 L 144/83 H 07/07/21 11:40 53 L 154/92 H 07/07/21 11:20 71 165/96 H 07/07/21 11:00 82 144/97 H 07/07/21 10:47 91 H 07/07/21 10:40 62 150/104 H 07/07/21 10:20 91 H 157/94 H 07/07/21 10:00 84 152/87 H 07/07/21 09:40 85 173/100 H 07/07/21 09:23 87 177/109 H 07/07/21 09:16 37.1 C 89 07/07/21 07:00 37.0 C 87 20 180/112 H BP Pulse Ox 07/07/21 15:00 100 07/07/21 13:45 179/101 H 07/07/21 13:00 07/07/21 12:40 07/07/21 12:20 07/07/21 12:00 07/07/21 11:40 07/07/21 11:20 07/07/21 11:00 07/07/21 10:47 07/07/21 10:40 07/07/21 10:20 07/07/21 10:00 07/07/21 09:40 07/07/21 09:23 07/07/21 09:16 07/07/21 07:00 185/105 H 98 Laboratory Results 07/07/21 06:32 07/07/21 06:32
[2021-07-08] MEDS: LEVALBUTEROL HCL 1.25 MG/3 ML NEB NEB PRN (05:14)
[2021-07-08] MEDS ORDERED: SODIUM CHLORIDE 0.9% 1000ML 1,000 ML IV PRN (07:00)
[2021-07-08] MEDS ORDERED: HEPARIN SOD (PORCINE) 1000 UNIT/ML IV ONE (07:00)
[2021-07-08] MEDS: amLODIPine BESYLATE 5 MG TAB PO SCH (07:51)
[2021-07-08] MEDS: INSULIN ASPART PER UNIT SC SCH ×4 (08:40→20:24)
[2021-07-08] MEDS: FLUTICASONE/VILANTEROL 100/25MCG 14 PUFFS/INHALER INH SCH (08:40)
[2021-07-08] MEDS: PANTOprazole 40 MG in SYRINGE 0 ML IV SCH ×2 (08:40→20:22)
[2021-07-08] MEDS: CHECK CLONIDINE PATCH PLACEMENT SCH ×2 (08:41→12:17)
[2021-07-08] MEDS: METOCLOPRAMIDE HCL 10 MG TABLET PO SCH ×3 (08:41→20:23)
[2021-07-08] MEDS: levETIRAcetam 500 MG TAB PO SCH ×2 (08:41→20:23)
[2021-07-08] MEDS: GABAPENTIN 100 MG CAP PO SCH ×3 (08:42→20:22)
[2021-07-08] MEDS: ROSUVASTATIN CALCIUM 20 MG TAB PO SCH (08:42)
[2021-07-08] MEDS ORDERED: INSULIN GLARGINE SOLOSTAR 100 UNITS/ML 3 ML PEN SC ONE (09:00)
--- NOTE | 2021-07-08 09:12 | Nephrology Progress Note ---
Date of Service July 08, 2021 Assessment & Plan (1) ESRD (end stage renal disease) on dialysis: Plan: Patient with stage 2 oligoanuric acute kidney injury on advanced CKD 4 w/ baseline high risk for progression > now ESRD. ischemic ATN in setting of nausea and vomiting for several days on underlying advanced diabetic nephropathy. Patient also found to have aspiration pneumonia and more recently pulmonary edema. Creatinine on admission was 6.1 from a baseline of 3. Creatinine down to 5.7 after receiving IV fluids but worsened to 8s and w/ oligoanuria. Given history of metastatic cancer and of the multiple comorbidities, patient may not be a good candidate for dialysis. However he wishes to try and understands risks it may not go well after discussion w/ me; finds these prefereable to no intervention. consent is on chart. Plan trial of HD 4-6 wks then reassess tolerance and discuss permanent vasc access at that time -Renally dose antibiotics for GFR less than 15 mL/min -Monitor renal function with daily BMP -TDC placed 07/04; first HD same day -HD again on 07/07- with 3 lit UF, Next dialysis will be Saturday. >>he wishes to dialyze under care of Dr Morales at [facility] after d/c -no PROSPER d/t cancer hx > monitor anemia frequently as he will be transfusion dependent (2) Primary cancer of left lung metastatic to other site: Plan: Patient is status post resection and radiation to the ninth rib. not a candidate for further chemo per oncology. upcomin gPET a few weeks after d/c; multple mets noted on 07/03 CT Admission and Anticipated Discharge Date Admission Date: June 30, 2021 Subjective - Comfortable, in mild respiratory distress. Review of Systems Review of Systems: All other systems were reviewed and negative except as noted in HPI Physical Exam Physical Exam: Constitutio nal: well nourish ed, + ill appearin g, + frail appeari ng and cooperative ; no acute distr ess Eyes: EOM intact b ilaterally ENMT: Ears: no ext ernal ear abnormal ity Nose: no exte rnal nose abnormal ity Mouth: + dr smart oral mucous memb ranes Neck: no nuchal ri gidity Respiratory : normal respi ratory effort Aus cultation: + dimin ished lung sounds Cardiovascu lar: Rate/Rhythm: regular rate and regular rhythm Ex tremities: + edema (less today) Gastrointes tinal (Abdomen): Inspection/Aus cultation: zayda l bowel sounds Pe rcussion/Palpation : abdomen soft; ab domen nontender Musculoskel etal: Extremities: strength 5/5 thro ughout Skin: no rashes, w arm and dry Results & Data ([facility]) Vital Signs (Past 12 Hours) Vital Signs Temp Pulse Pulse Resp BP Pulse Ox 07/08/21 07:38 37.4 C 93 H 18 136/79 95 07/08/21 05:14 91 H 16 97 07/08/21 02:37 36.9 C 86 18 158/84 H 95 07/08/21 01:29 93 H 07/07/21 22:21 37.0 C 90 20 145/80 H 95 Laboratory Results 07/07/21 06:32 07/07/21 06:32
--- NOTE | 2021-07-08 09:49 | Pharmacy Report ---
Pharmacy Glycemic Short Note 2 - Date of Service July 08, 2021 - Glycemic Short BSG Results (Last 24 hours): 07/07/21 07/07/21 07/07/21 14:04 14:04 16:47 POC Glucose 214 H 214 H 242 H 07/07/21 07/08/21 20:26 07:31 POC Glucose 202 H 240 H OUTPATIENT ANTIDIABETIC REGIMEN: * Lantus 7 units SQ QPM * Humulog sliding scale * HbA1c: 9.0% (06/30/21) -- unreliable in the setting of ESRD, now on HD ASSESSMENT: 07/08/21 * Patient's BSGs yesterday were [phone] mg/dL and fasting today is 240 mg/dL. * Patient received 25 units of insulin yesterday (6 units of basal and 19 units of bolus). Plan to transition to once daily dosing this weekend. * Increase back to home dose of 7 units daily. * Continue Novolog as tightened CF/CR has led to hypoglycemia with patient. 07/07/21 * Mr Hamilton's BSGs continue to be labile, but were not unreasonable most of the day yesterday. * Pt received another HD session yesterday. * Pt appears to be tolerating diet. * Will continue to follow. 07/05 * Patient's BSGs yesterday were [phone]. * Patient received 15 units of insulin yesterday (3 units of basal and 12 units of bolus). * Fasting today is 188 mg/dL. * Will continue with Lantus 3 units and scale for tonight. * For Novolog --- hypoglycemic event at HS attributed to 135 gm of carbohydrates eaten at dinnertime. patient received 8 units of Novolog for that. Difficult to loosen CR any more. Will up goal range to 120-160 mg/dL PLUS limit bolus dosing to 5 units at a time. 07/04 * Patient's BSGs yesterday were 68/82 - 93 -237--95 mg/dL. Fasting today was 85 mg/dL and lunch was 116 mg/dL. * Per discussion with provider, patient switched to scheduled regular insulin at midnight. Patient did not receive any of this. * Last dose of basal insulin was 07/02 @ 2100 which was 7 units. * Patient underwent tunneled dialysis catheter placement today with subsequent dialysis. * Will start Lantus conservatively with 3 units (half of home dose). Scale for this evening depending on blood sugar. Max dose today is 6 units and minimum dose today is 3 units. * Novolog with previous features. 07/03 * BSGs yesterday were 241-75-830-109 mg/dL. * Patient received 15 units of insulin yesterday (7 units of Lantus and 8 units of bolus). * Patient's fasting today was 68 mg/dL. Lunch was 93 mg/dL. Loosen Novolog. * After discussion with provider, will switch to scheduled Regular insulin 0-2 units q6 hours tonight at midnight. Patient will be NPO for procedure tomorrow and this will provide more control over BSGs. BACKGROUND * 55 y/o M admitted with possible aspiration pneumonia, nausea/ vomiting and upper GI bleed. Patient is a Type 1 diabetic known to pharmacy glycemic service from recent past admissions. * Patient received 5 units of Lantus last night. Fasting BSG today AM was 217 mg/dl. HS Lantus dose increased to 7 units tonight which is his home basal dose. * He received Novolog 5 units with breakfast this AM which caused his BSG to go low mid-morning. This is from his Novolog CF being too tight. * Novolog CF loosened to 40. Based on past admissions patient needs loose CF and CR coverage with meals. PLAN FOR INPATIENT GLYCEMIC CONTROL: * Basal insulin * Lantus 4 units SQ qAM plus 3 units HS * Bolus insulin * NovoLog per scale ACHS or Q6hrs while NPO * Goal Range: Low 110 mg/dL - High 160 mg/dL * Correction Factor: 55 mg/dL/unit * Nutritional / Prandial insulin per carb ratio of 1 unit per 18 grams CHO consumed
[2021-07-08] MEDS: HEPARIN SOD (PORCINE) 1000 UNIT/ML IV SCH (17:11)
--- NOTE | 2021-07-08 17:22 | Hospitalist Progress Note ---
Date of Service July 08, 2021 Assessment & Plan (1) Acute kidney injury (IVAN) with acute tubular necrosis (ATN): Plan: ESRD on dialysis Acute kidney injury due to ischemic ATN in setting of nausea and vomiting for several days, now with ESRD on dialysis. He has a baseline creatinine of 3 reflecting chronic kidney disease. Started HD on 07/04 with some improvement in creat to 4.[address] chest this admission reveals new pulmonary metastatic disease. Overall prognosis is guarded. Discussed this with patient who verbalized understanding. He is interested in continuing with dialysis trial. Volume management with UF removal in HD. He remains anemic; iron infusion given. No PROSPER given cancer dx. Cont management per nephrology. Pulmonary edema, anuric. Cont strict I/Os and daily standing weights. Nephro managing. Currently not in respiratory distress, on NC 2L. Requires a set hemodialysis appointment prior to discharge at [facility] dialysis center, case management is aware. Will be on a MWF schedule. (2) Diabetic gastroparesis: Plan: Patient is now tolerating a diet - Antiemetics as needed. GI Stimulator in place. (3) Aspiration pneumonia: Plan: Questionable pneumonia on CT scan. Procalcitonin negative. Completed 7 days of ertapenem with little improvement. It is more likely that his hypoxia, cough and SOB and cough are coming from pulmonary edema. Cont HD for volume management. (4) Pulmonary edema: Plan: plan as above. (5) Diabetes: Plan: Hypoglycemia this admission. Type I diabetes, glycemic pharmacy for management. Continue to monitor closely. (6) Primary cancer of left lung metastatic to other site: Plan: Recently finished radiation treatments and is scheduling for a PET scan in 1 month. New metastatic disease on left lung seen. Results were shared with his oncologist and with patient. cont per Oncology. (7) HTN (hypertension): Plan: chronic, stable, lisinopril on hold in setting of worsening renal failure. Continue amlodipine 10 mg daily and Catapres TTS weekly patch per home regimen (8) Anemia: Plan: Chronic, stable, multifactorial. No indication for transfusion at this time. No PROSPER given because of cancer. Continue monitor (9) Chronic pain: Plan: Currently managed with gabapentin 200 mg p.o. 3 times daily which is a reduction from his home dose of 400 mg p.o. 3 times daily in setting of renal failure. Refusing APAP, has oxy PRN if needed and he is aware it is there if he needs it. (10) Seizure disorder: Plan: Chronic, stable, no evidence of seizure activity. Continue Keppra per home regimen at reduced dose of 500 mg p.o. 3 times daily in setting of renal failure (11) DVT prophylaxis: Plan: SCDs, chemoprophylaxis contraindicated in setting of recent questionable bloody vomitus and anemia Full code Disposition-to home once OP dialysis set up. Still full code and trying treatments including hemodialysis despite guarded prognosis. Will continue this for now. Admission and Anticipated Discharge Date Admission Date: June 30, 2021 Subjective No new issues. Has chronic pain and on oxycodone but says it does not seem to help much. States he was taken for dialysis but there was an urgent case and he did not get dialysis today. States he urinated yesterday, not today. Normal appetite, regular BM. States he had dark slimy expectoration yesterday, none today. Physical Exam Physical Exam: General: ill appearing, frail elderly male, sitting comfortably in bed, not in acute distress, on NC HEENT: EOMI, FANTASMA, MMM Chest: Permcath site clear, Fair breath sounds bilaterally with bilateral rales CVS: Regular rate and rhythm, normal heart sounds, no murmur Abdomen: Soft, non tender, not distended, normal bowel sounds Neuro: Awake, alert, oriented, conversing well, non focal Extremities: edema trace Results & Data Results & Data ([facility]) Vital Signs (Past 12 Hours) Vital Signs Temp Pulse Pulse Resp BP Pulse Ox 07/08/21 14:47 100 07/08/21 11:18 37.1 C 95 H 18 155/80 H 100 07/08/21 10:19 93 H 07/08/21 07:38 37.4 C 93 H 18 136/79 95 07/08/21 05:14 91 H 16 97 (1) Diabetes Diabetes mellitus complication status: with other specified complication Diabetes mellitus type: type 1 Qualified Code(s): E10.69 - Type 1 diabetes mellitus with other specified complication (2) Chronic pain Chronic pain type: other chronic pain Qualified Code(s): G89.29 - Other chronic pain
[2021-07-08] MEDS: INSULIN GLARGINE SOLOSTAR 100 UNITS/ML 3 ML PEN SC SCH (20:23)
[2021-07-08] MEDS: oxyCODONE HCL IR 5 MG TAB (IMMEDIATE RELEASE) PO PRN (23:51)
[2021-07-09] MEDS: CHECK CLONIDINE PATCH PLACEMENT SCH ×4 (00:42→23:30)
[2021-07-09] MEDS: GABAPENTIN 100 MG CAP PO SCH ×3 (08:15→21:02)
[2021-07-09] MEDS: ROSUVASTATIN CALCIUM 20 MG TAB PO SCH (08:15)
[2021-07-09] MEDS: METOCLOPRAMIDE HCL 10 MG TABLET PO SCH ×3 (08:15→21:02)
[2021-07-09] MEDS: levETIRAcetam 500 MG TAB PO SCH ×2 (08:15→21:01)
[2021-07-09] MEDS: amLODIPine BESYLATE 5 MG TAB PO SCH (08:15)
[2021-07-09] MEDS: FLUTICASONE/VILANTEROL 100/25MCG 14 PUFFS/INHALER INH SCH (08:17)
[2021-07-09] MEDS: PANTOprazole 40 MG in SYRINGE 0 ML IV SCH ×2 (08:18→21:01)
[2021-07-09] MEDS: INSULIN ASPART PER UNIT SC SCH ×4 (08:23→21:00)
[2021-07-09] MEDS ORDERED: INSULIN GLARGINE SOLOSTAR 100 UNITS/ML 3 ML PEN SC SCH ×2 (09:00)
--- NOTE | 2021-07-09 11:28 | Pharmacy Report ---
Pharmacy Glycemic Short Note 2 - Date of Service July 09, 2021 - Glycemic Short BSG Results (Last 24 hours): 07/08/21 07/08/21 07/08/21 11:25 16:31 20:13 POC Glucose 166 H 273 H 231 H 07/09/21 07/09/21 07/09/21 05:00 07:35 07:36 POC Glucose 111 H 63 L* 66 L* 07/09/21 07:59 POC Glucose 72 OUTPATIENT ANTIDIABETIC REGIMEN: * Lantus 7 units SQ QPM * Humulog sliding scale * HbA1c: 9.0% (06/30/21) -- unreliable in the setting of ESRD, now on HD ASSESSMENT: 07/09/21 * Patient's BSGs yesterday were [phone] mg/dL. Fasting today was 63. * Patient received 23 units of insulin yesterday (7 units of basal and 16 units of bolus). * Had increased basal insulin yesterday to 7 units. Will decrease back to 6 units daily. Will hold off on transitioning due to hypoglycemia today. * Patient may require slightly more insulin on hemodialysis days. * Continue Novolog. 07/08/21 * Patient's BSGs yesterday were [phone] mg/dL and fasting today is 240 mg/dL. * Patient received 25 units of insulin yesterday (6 units of basal and 19 units of bolus). Plan to transition to once daily dosing this weekend. * Increase back to home dose of 7 units daily. * Continue Novolog as tightened CF/CR has led to hypoglycemia with patient. 07/07/21 * Mr Hamilton's BSGs continue to be labile, but were not unreasonable most of the day yesterday. * Pt received another HD session yesterday. * Pt appears to be tolerating diet. * Will continue to follow. 07/05 * Patient's BSGs yesterday were [phone]/78. * Patient received 15 units of insulin yesterday (3 units of basal and 12 units of bolus). * Fasting today is 188 mg/dL. * Will continue with Lantus 3 units and scale for tonight. * For Novolog --- hypoglycemic event at HS attributed to 135 gm of carbohydrates eaten at dinnertime. patient received 8 units of Novolog for that. Difficult to loosen CR any more. Will up goal range to 120-160 mg/dL PLUS limit bolus dosing to 5 units at a time. 07/04 * Patient's BSGs yesterday were 68/82 - 93 -237--95 mg/dL. Fasting today was 85 mg/dL and lunch was 116 mg/dL. * Per discussion with provider, patient switched to scheduled regular insulin at midnight. Patient did not receive any of this. * Last dose of basal insulin was 07/02 @ 2100 which was 7 units. * Patient underwent tunneled dialysis catheter placement today with subsequent dialysis. * Will start Lantus conservatively with 3 units (half of home dose). Scale for this evening depending on blood sugar. Max dose today is 6 units and minimum dose today is 3 units. * Novolog with previous features. 07/03 * BSGs yesterday were [phone] mg/dL. * Patient received 15 units of insulin yesterday (7 units of Lantus and 8 units of bolus). * Patient's fasting today was 68 mg/dL. Lunch was 93 mg/dL. Loosen Novolog. * After discussion with provider, will switch to scheduled Regular insulin 0-2 units q6 hours tonight at midnight. Patient will be NPO for procedure tomorrow and this will provide more control over BSGs. BACKGROUND * 55 y/o M admitted with possible aspiration pneumonia, nausea/ vomiting and upper GI bleed. Patient is a Type 1 diabetic known to pharmacy glycemic service from recent past admissions. * Patient received 5 units of Lantus last night. Fasting BSG today AM was 217 mg/dl. HS Lantus dose increased to 7 units tonight which is his home basal dose. * He received Novolog 5 units with breakfast this AM which caused his BSG to go low mid-morning. This is from his Novolog CF being too tight. * Novolog CF loosened to 40. Based on past admissions patient needs loose CF and CR coverage with meals. PLAN FOR INPATIENT GLYCEMIC CONTROL: * Basal insulin * Lantus 3 units SQ BID * Bolus insulin * NovoLog per scale ACHS or Q6hrs while NPO * Goal Range: Low 110 mg/dL - High 160 mg/dL * Correction Factor: 55 mg/dL/unit * Nutritional / Prandial insulin per carb ratio of 1 unit per 18 grams CHO consumed
--- NOTE | 2021-07-09 11:32 | Nephrology Progress Note ---
Date of Service July 09, 2021 Assessment & Plan (1) ESRD (end stage renal disease) on dialysis: Plan: Patient with stage 2 oligoanuric acute kidney injury on advanced CKD 4 w/ baseline high risk for progression > now ESRD. ischemic ATN in setting of nausea and vomiting for several days on underlying advanced diabetic nephropathy. Patient also found to have aspiration pneumonia and more recently pulmonary edema. Creatinine on admission was 6.1 from a baseline of 3. Creatinine down to 5.7 after receiving IV fluids but worsened to 8s and w/ oligoanuria. Given history of metastatic cancer and of the multiple comorbidities, patient may not be a good candidate for dialysis. However he wishes to try and understands risks it may not go well after discussion w/ me; finds these prefereable to no intervention. consent is on chart. Plan trial of HD 4-6 wks then reassess tolerance and discuss permanent vasc access at that time -Renally dose antibiotics for GFR less than 15 mL/min -Monitor renal function with daily BMP -TDC placed 07/04; first HD same day, and had dialysis on 07/05, 07/06,/07/07 -Last HD on 07/07- with 3 lit UF, Next dialysis will tentatively be Saturday. Will get BMP tomorrow. Urine output has improved which is encouraging. >>he wishes to dialyze under care of Dr Morales at [facility] after d/c -no PROSPER d/t cancer hx > monitor anemia frequently as he will be transfusion dependent (2) Primary cancer of left lung metastatic to other site: Plan: Patient is status post resection and radiation to the ninth rib. not a candidate for further chemo per oncology. upcomin gPET a few weeks after d/c; multple mets noted on 07/03 CT Admission and Anticipated Discharge Date Admission Date: June 30, 2021 Subjective Resting comfortably in bed, no new issues Continues to make urine Last lab work done on 07/07 Review of Systems Review of Systems: All other systems were reviewed and negative except as noted in HPI Physical Exam Physical Exam: General: frail elderly male, sitting comfortably in bed, not in acute distress, on NC HEENT: EOMI, FANTASMA, MMM Chest: Permcath site clear, Fair breath sounds bilaterally with bilateral rales CVS: Regular rate and rhythm, normal heart sounds, no murmur Abdomen: Soft, non tender, not distended, normal bowel sounds Neuro: Awake, alert, oriented, conversing well, non focal Extremities: edema trace Results & Data ([facility]) Vital Signs (Past 12 Hours) Vital Signs Temp Pulse Pulse Resp BP Pulse Ox 07/09/21 10:59 36.5 C 85 18 108/64 90 07/09/21 08:59 85 07/09/21 07:18 37.0 C 88 18 154/83 H 90 07/09/21 02:40 37.0 C 93 H 18 149/78 H 94 Laboratory Results 07/07/21 06:32 07/07/21 06:32
--- NOTE | 2021-07-09 13:05 | Hospitalist Progress Note ---
Date of Service July 09, 2021 Assessment & Plan (1) Acute kidney injury (IVAN) with acute tubular necrosis (ATN): Plan: ESRD on dialysis Acute kidney injury due to ischemic ATN in setting of nausea and vomiting for several days, now with ESRD on dialysis. He has a baseline creatinine of 3 reflecting chronic kidney disease. Started HD on 07/04 with some improvement in creatinine to 4.[address] chest this admission reveals new pulmonary metastatic disease. Overall prognosis is guarded. Discussed this with patient who verbalized understanding. He is interested in continuing with dialysis trial. Volume management with UF removal in HD. He remains anemic; iron infusion given. No PROSPER given cancer dx. Cont management per nephrology. Pulmonary edema, anuric. Cont strict I/Os and daily standing weights. Nephro managing. Currently not in respiratory distress, on NC 2L. Requires a set hemodialysis appointment prior to discharge at [facility] dialysis center, case management is aware. Will be on a MWF schedule. (2) Diabetic gastroparesis: Plan: Patient is now tolerating a diet - Antiemetics as needed. GI Stimulator in place. (3) Aspiration pneumonia: Plan: Questionable pneumonia on CT scan. Procalcitonin negative. Completed 7 days of ertapenem with little improvement. It is more likely that his hypoxia, cough and SOB and cough are coming from pulmonary edema. Cont HD for volume management. (4) Pulmonary edema: Plan: plan as above. (5) Diabetes: Plan: Hypoglycemia this admission. Type I diabetes, glycemic pharmacy for management. Continue to monitor closely. (6) Primary cancer of left lung metastatic to other site: Plan: Recently finished radiation treatments and is scheduling for a PET scan in 1 month. New metastatic disease on left lung seen. Results were shared with his oncologist and with patient. cont per Oncology. (7) HTN (hypertension): Plan: chronic, stable, lisinopril on hold in setting of worsening renal failure. Continue amlodipine 10 mg daily and Catapres TTS weekly patch per home regimen (8) Anemia: Plan: Chronic, stable, multifactorial. No indication for transfusion at this time. No PROSPER given because of cancer. Continue monitor (9) Chronic pain: Plan: Currently managed with gabapentin 200 mg p.o. 3 times daily which is a reduction from his home dose of 400 mg p.o. 3 times daily in setting of renal failure. Refusing APAP, has oxy PRN if needed and he is aware it is there if he needs it. (10) Seizure disorder: Plan: Chronic, stable, no evidence of seizure activity. Continue Keppra per home regimen at reduced dose of 500 mg p.o. 3 times daily in setting of renal failure (11) DVT prophylaxis: Plan: SCDs, chemoprophylaxis contraindicated in setting of recent questionable bloody vomitus and anemia Full code Disposition-to home once OP dialysis set up. Still full code and trying treatments including hemodialysis despite guarded prognosis. Will continue this for now. Admission and Anticipated Discharge Date Admission Date: June 30, 2021 Physical Exam Physical Exam: General: sitting comfortably in bed, not in acute distress, on NC HEENT: EOMI, FANTASMA, MMM Chest: Permcath site clear, Fair breath sounds bilaterally with bibasilar rales CVS: Regular rate and rhythm, normal heart sounds, no murmur Abdomen: Soft, non tender, not distended, normal bowel sounds Neuro: Awake, alert, oriented, conversing well, non focal Extremities: edema trace Results & Data Results & Data ([facility]) Vital Signs (Past 12 Hours) Vital Signs Temp Pulse Pulse Resp BP Pulse Ox 07/09/21 10:59 36.5 C 85 18 108/64 90 07/09/21 08:59 85 07/09/21 07:18 37.0 C 88 18 154/83 H 90 07/09/21 02:40 37.0 C 93 H 18 149/78 H 94 Medications Administered Current Inpatient Medications Acetaminophen (Acetaminophen 325 Mg Tab) 650 mg PO Q4H PRN PRN Reason: Pain or Fever Stop: 07/30/21 23:01 Amlodipine Besylate (Amlodipine Besylate 5 Mg Tab) 10 mg PO DAILY [facility] Stop: 07/31/21 08:59 Last Admin: 07/09/21 08:15 Dose: 10 mg Documented by: Clonidine HCl (Clonidine Hcl 0.2 Mg/24 Hr Transderm Sys) 1 patch TD Fr@2200 [facility] Stop: 07/30/21 21:59 Last Admin: 07/07/21 21:17 Dose: 1 patch Documented by: Dextrose (Dextrose 50% 50 Ml Syringe) 25 - 50 ml IV UD PRN; Protocol PRN Reason: Hypoglycemia Protocol Stop: 07/30/21 20:44 Fluticasone/Vilanterol (Fluticasone/Vilanterol 100/25mcg 14 Puffs/Inhaler) 1 puffs INH DAILY [facility] Stop: 07/31/21 08:59 Last Admin: 07/09/21 08:17 Dose: 1 puffs Documented by: Gabapentin (Gabapentin 100 Mg Cap) 200 mg PO TID [facility] Stop: 07/31/21 08:59 Last Admin: 07/09/21 08:15 Dose: 200 mg Documented by: Glucagon (Glucagon For Inj 1 Mg Vial) 1 mg IM UD PRN; Protocol PRN Reason: Hypoglycemia Protocol Stop: 07/30/21 20:44 Glucagon (Glucagon For Inj 1 Mg Vial) 1 mg SQ UD PRN; Protocol PRN Reason: Hypoglycemia Protocol Stop: 07/30/21 23:01 Glucose (Glucose 40% Gel 15 Gm Tube) 15 - 30 gm PO UD PRN; Protocol PRN Reason: Hypoglycemia Protocol Stop: 07/30/21 20:44 Last Admin: 07/02/21 11:02 Dose: 15 gm Documented by: Glucose (Glucose 10 Tabs/Tube) 4 - 8 tabs PO UD PRN; Protocol PRN Reason: Hypoglycemia Protocol Stop: 07/30/21 20:44 Promethazine HCl 12.5 mg/ (Sodium Chloride) 50.5 mls @ 202 mls/hr IV Q6H PRN PRN Reason: Nausea And Vomiting Stop: 07/30/21 23:01 Last Infusion: 07/07/21 01:22 Dose: Infused Documented by: Pantoprazole Sodium 40 mg/ (Syringe) 10 mls @ 5 mls/min IV BID [facility] Stop: 07/31/21 08:59 Last Admin: 07/09/21 08:18 Dose: 5 mls/min Documented by: Dextrose/Sodium Chloride (D5w And 1/4nss) 1,000 mls @ 0 mls/hr IV .Q0M [facility] Stop: 08/03/21 07:59 Last Infusion: 07/04/21 08:04 Dose: Infused Documented by: Insulin Aspart (Insulin Aspart Per Unit) 0 units SC ACHS [facility] Stop: 08/03/21 11:29 Last Admin: 07/09/21 12:03 Dose: 1 units Documented by: Insulin Glargine (Insulin Glargine Solostar 100 Units/Ml 3 Ml Pen) 3 units SC HS [facility]; Protocol Stop: 07/10/21 23:59 Last Admin: 07/08/21 20:23 Dose: 3 units Documented by: Insulin Glargine (Insulin Glargine Solostar 100 Units/Ml 3 Ml Pen) 3 units SC NOW ONE Stop: 07/10/21 12:01 Insulin Glargine (Insulin Glargine Solostar 100 Units/Ml 3 Ml Pen) 6 units SC [facility] Stop: 08/10/21 16:59 Levalbuterol HCl (Levalbuterol Hcl 1.25 Mg/3 Ml Neb) 1.25 mg NEB Q4H PRN; Protocol PRN Reason: Shortness Of Breath Or Wheezing Stop: 08/07/21 04:59 Last Admin: 07/08/21 05:14 Dose: 1.25 mg Documented by: Levetiracetam (Levetiracetam 500 Mg Tab) 500 mg PO BID [facility] Stop: 07/31/21 08:59 Last Admin: 07/09/21 08:15 Dose: 500 mg Documented by: Metoclopramide HCl (Metoclopramide Hcl 10 Mg Tablet) 10 mg PO TID [facility] Stop: 07/31/21 08:59 Last Admin: 07/09/21 08:15 Dose: 10 mg Documented by: Miscellaneous (Carbohydrates For Hypoglycemia ) 15 - 30 gm PO UD PRN PRN Reason: Hypoglycemia Treatment Stop: 07/30/21 20:44 Last Admin: 07/04/21 20:07 Dose: 30 gm Documented by: Miscellaneous (Remove Clonidine Patch) 1 ea N/A Fr@2159 [facility] Stop: 07/30/21 21:58 Last Admin: 07/07/21 21:18 Dose: 1 ea Documented by: Miscellaneous (Check Clonidine Patch Placement) 1 ea N/A QS [facility] Stop: 07/31/21 00:00 Last Admin: 07/09/21 08:17 Dose: 1 ea Documented by: Miscellaneous Information (Pharmacy Glycemic Mgmt Consult) 1 ea N/A UD PRN PRN Reason: Consult Stop: 08/01/21 10:32 Oxycodone HCl (Oxycodone Hcl Ir 5 Mg Tab (Immediate Release)) 5 mg PO QID PRN PRN Reason: Severe Pain (Scale Score 7-10) Stop: 07/15/21 00:00 Last Admin: 07/08/21 23:51 Dose: 5 mg Documented by: Rosuvastatin Calcium (Rosuvastatin Calcium 20 Mg Tab) 20 mg PO DAILY [facility] Stop: 07/31/21 08:59 Last Admin: 07/09/21 08:15 Dose: 20 mg Documented by: (1) Diabetes Diabetes mellitus complication status: with other specified complication Diabetes mellitus type: type 1 Qualified Code(s): E10.69 - Type 1 diabetes mellitus with other specified complication (2) Chronic pain Chronic pain type: other chronic pain Qualified Code(s): G89.29 - Other chronic pain
[2021-07-09] MEDS: oxyCODONE HCL IR 5 MG TAB (IMMEDIATE RELEASE) PO PRN (17:00)
[2021-07-09] MEDS: LEVALBUTEROL HCL 1.25 MG/3 ML NEB NEB PRN (20:13)
[2021-07-09] MEDS: INSULIN GLARGINE SOLOSTAR 100 UNITS/ML 3 ML PEN SC SCH (21:00)
[2021-07-10] MEDS: LEVALBUTEROL HCL 1.25 MG/3 ML NEB NEB PRN ×2 (04:06→23:11)
[2021-07-10] MEDS: INSULIN ASPART PER UNIT SC SCH ×4 (08:10→20:50)
[2021-07-10] MEDS: CHECK CLONIDINE PATCH PLACEMENT SCH ×3 (08:11→20:58)
[2021-07-10] MEDS: levETIRAcetam 500 MG TAB PO SCH ×2 (08:12→19:46)
[2021-07-10] MEDS: METOCLOPRAMIDE HCL 10 MG TABLET PO SCH ×3 (08:12→19:46)
[2021-07-10] MEDS: PANTOprazole 40 MG in SYRINGE 0 ML IV SCH (08:12)
[2021-07-10 08:13] LABS: Hematocrit (blood only) 22.2 % (42-52); Hemoglobin 7.2 g/dL (14.0-18.0); Mean Corpuscular Hemoglobin 29.1 pg (25-34); Mean Corpuscular Hgb Conc 32.4 g/dL (32-36); Mean Corpuscular Volume 89.9 fL (80-100); Mean Platelet Volume 10.5 fL (7.4-10.4); Platelet Count 201 K/uL (130-400); RDW Coefficient of Variation 13.5 % (11.5-14.5); RDW Standard Deviation 44.2 fL (36.4-46.3); Red Blood Count 2.47 M/uL (4.7-6.1); White Blood Count 6.72 K/uL (4.8-10.8)
[2021-07-10] MEDS: ROSUVASTATIN CALCIUM 20 MG TAB PO SCH (08:13)
[2021-07-10] MEDS: FLUTICASONE/VILANTEROL 100/25MCG 14 PUFFS/INHALER INH SCH (08:13)
[2021-07-10] MEDS: GABAPENTIN 100 MG CAP PO SCH ×3 (08:13→19:46)
[2021-07-10 08:39] LABS: BUN Creatinine Ratio 6.9 (10-20); Calcium 7.1 mg/dl (8.5-10.1); Creatinine Clr Calc Pharmacy 13.4 ml/min; Est GFR (African American) 9.6 ml/min; Est GFR (Non-African American) 8.3 ml/min; Potassium 3.9 mmol/L (3.5-5.1)
[2021-07-10] MEDS: oxyCODONE HCL IR 5 MG TAB (IMMEDIATE RELEASE) PO PRN ×2 (09:03→16:57)
[2021-07-10] MEDS ORDERED: SODIUM CHLORIDE 0.9% 1000ML 1,000 ML IV PRN (09:12)
[2021-07-10] MEDS ORDERED: EPOETIN ALFA 20,000 UNITS/ML VIAL IV ONE (09:30)
--- NOTE | 2021-07-10 11:37 | Dialysis Progress Note ---
Date of Service July 10, 2021 Assessment & Plan Admission and Anticipated Discharge Date Admission Date: June 30, 2021 Subjective Assessment & Plan (1) ESRD (end stage renal disease) on dialysis: Plan: Patient with oligoanuric acute kidney injury on advanced CKD 4 now ESRD. ischemic ATN in setting of nausea and vomiting for several days on underlying advanced diabetic nephropathy. Patient also found to have aspiration pneumonia and more recently pulmonary edema. Given history of metastatic cancer and of the multiple comorbidities, patient may not be a good candidate for dialysis. However he wishes to try and understands risks it may not go well. He finds these preferable to no intervention. consent is on chart. Plan trial of HD 4-6 wks then reassess tolerance and discuss permanent vasc access at that time. -TDC placed 07/04; first HD same day, and had dialysis on 07/05, 07/06,/07/07 and now today Urine output has improved which is encouraging. Take 3 kilo off today. do 3 hr on 2 k bath. no heparin He wishes to dialyze under care of Dr Morales at [facility] after d/c No PROSPER d/t cancer hx > monitor anemia frequently as he will be transfusion dependent. (2) Primary cancer of left lung metastatic to other site: Plan: Patient is status post resection and radiation to the ninth rib. not a candidate for further chemo per oncology. upcoming PET a few weeks after d/c; multiple mets noted on 07/03 CT Subjective Resting comfortably in bed. Seen in dialysis. Continues to make urine Review of Systems Review of Systems: All other systems were reviewed and negative except as noted in HPI Physical Exam Physical Exam: General: frail elderly male, sitting comfortably in bed, not in acute distress, on NC HEENT: EOMI, FANTASMA, MMM Chest: Permcat site clear, Fair breath sounds bilaterally with bilateral rales CVS: Regular rate and rhythm, normal heart sounds, no murmur Abdomen: Soft, non tender, not distended, normal bowel sounds Neuro: Awake, alert, oriented, conversing well, non focal Extremities: 1+ edema b/l Results & Data ([facility]) Vital Signs (Past 12 Hours) Vital Signs Temp Pulse Pulse Pulse Resp BP BP 07/10/21 11:30 94 H 152/88 H 07/10/21 11:00 94 H 157/91 H 07/10/21 10:30 96 H 155/81 H 07/10/21 10:00 97 H 153/86 H 07/10/21 09:40 37.3 C 98 H 07/10/21 07:17 37.1 C 99 H 18 156/61 H 07/10/21 06:18 100 H 07/10/21 04:08 37.0 C 91 H 20 123/67 07/10/21 04:07 20 07/10/21 01:19 90 Pulse Ox 07/10/21 11:30 07/10/21 11:00 07/10/21 10:30 07/10/21 10:00 07/10/21 09:40 07/10/21 07:17 90 07/10/21 06:18 07/10/21 04:08 91 07/10/21 04:07 92 07/10/21 01:19
[2021-07-10] MEDS ORDERED: INSULIN GLARGINE SOLOSTAR 100 UNITS/ML 3 ML PEN SC ONE (12:00)
[2021-07-10] MEDS: amLODIPine BESYLATE 5 MG TAB PO SCH (13:17)
[2021-07-10] MEDS: guaiFENesin/DEXTROM SYRUP 200MG/20MG 10ML UDC PO SCH ×3 (13:17→19:45)
--- NOTE | 2021-07-10 14:16 | Hospitalist Progress Note ---
Date of Service July 10, 2021 Assessment & Plan (1) Acute kidney injury (IVAN) with acute tubular necrosis (ATN): Plan: ESRD on dialysis Acute kidney injury due to ischemic ATN in setting of nausea and vomiting for several days, now with ESRD on dialysis. He has a baseline creatinine of 3 reflecting chronic kidney disease. Started HD on 07/04 with some improvement in creatinine to 4.[address] chest this admission reveals new pulmonary metastatic disease. Overall prognosis is guarded. Discussed this with patient who verbalized understanding. He is interested in continuing with dialysis trial. Volume management with UF removal in HD. He remains anemic; iron infusion given. No PROSPER given cancer dx. Cont management per nephrology. Pulmonary edema, anuric. Cont strict I/Os and daily standing weights. Nephro managing. Currently not in respiratory distress, on NC 2L. Had dialysis today. Will monitor off of oxygen to see if he would need oxygen at discharge. OP dialysis has been arranged for Saturday per . MW schedule. [facility] dialysis center (2) Diabetic gastroparesis: Plan: tolerating a diet. GI Stimulator in place. (3) Aspiration pneumonia: Plan: Questionable pneumonia on CT scan. Procalcitonin negative. Completed 7 days of ertapenem with little improvement. It is more likely that his hypoxia, cough and SOB and cough are coming from pulmonary edema. Continue HD for volume management. Has ongoing cough- will start on robitusin DM. Hypoxia- On NC, will try to wean down. If unable to wean down, he will need home oxygen. (4) Pulmonary edema: Plan: plan as above. (5) Diabetes: Plan: Hypoglycemia this admission. Type I diabetes, glycemic pharmacy for management. Continue to monitor closely. (6) Primary cancer of left lung metastatic to other site: Plan: Recently finished radiation treatments and is scheduling for a PET scan in 1 month. New metastatic disease on left lung seen. Results were shared with his oncologist and with patient. cont per Oncology. (7) HTN (hypertension): Plan: chronic, stable, lisinopril on hold in setting of worsening renal failure. Continue amlodipine 10 mg daily and Catapres TTS weekly patch per home regimen (8) Anemia: Plan: Chronic, stable, multifactorial. No indication for transfusion at this time. No PROSPER given because of cancer. Continue monitor (9) Chronic pain: Plan: Currently managed with gabapentin 200 mg p.o. 3 times daily which is a reduction from his home dose of 400 mg p.o. 3 times daily in setting of renal failure. Refusing APAP, has oxy PRN if needed and he is aware it is there if he needs it. (10) Seizure disorder: Plan: Chronic, stable, no evidence of seizure activity. Continue Keppra per home regimen at reduced dose of 500 mg p.o. 3 times daily in setting of renal failure (11) DVT prophylaxis: Plan: SCDs, chemoprophylaxis contraindicated in setting of recent questionable bloody vomitus and anemia Full code Disposition-to home likely tomorrow. Still full code and trying treatments including hemodialysis despite guarded prognosis. Will continue this for now. Admission and Anticipated Discharge Date Admission Date: June 30, 2021 Subjective He had dialysis today, states 3L was removed and he wishes more could have been taken. He says he has urine output of about 600 cc last night but none today. States he was delusional at dialysis with him seeing his parents and his grandparents, currently none. Also, states that he has this ongoing cough and dark expectoration. Pain continues to be an issue. He states that finally both his parents will be allowed to visit him simultaneously today. He did not want me to call his dad to give an update. He doesn't feel ready to go home today yet. Physical Exam Physical Exam: General: sitting comfortably in bed, not in acute distress, on NE HEENT: EOMI, FANTASMA, MMM Chest: Permcath site clear, Fair breath sounds bilaterally with bibasilar rales CVS: Regular rate and rhythm, normal heart sounds, no murmur Abdomen: Soft, non tender, not distended, normal bowel sounds Neuro: Awake, alert, oriented, conversing well, non focal Extremities: edema trace Results & Data Results & [facility] ([facility]) Vital Signs (Past 12 Hours) Vital Signs Temp Pulse Pulse Pulse Resp BP BP 07/10/21 12:50 37.2 C 98 H 150/98 H 07/10/21 12:30 95 H 169/89 H 07/10/21 12:00 97 H 169/94 H 07/10/21 11:30 94 H 152/88 H 07/10/21 11:00 94 H 157/91 H 07/10/21 10:30 96 H 155/81 H 07/10/21 10:00 97 H 153/86 H 07/10/21 09:40 37.3 C 98 H 07/10/21 07:17 37.1 C 99 H 18 156/61 H 07/10/21 06:18 100 H 07/10/21 04:08 37.0 C 91 H 20 123/67 07/10/21 04:07 20 Pulse Ox 07/10/21 12:50 07/10/21 12:30 07/10/21 12:00 07/10/21 11:30 07/10/21 11:00 07/10/21 10:30 07/10/21 10:00 07/10/21 09:40 07/10/21 07:17 90 07/10/21 06:18 07/10/21 04:08 91 07/10/21 04:07 92 Laboratory Results Short CBC 07/10/21 Range/Units 07:56 WBC 6.72 (4.8-10.8) K/uL Hgb 7.2 L (14.0-18.0) g/dL Hct 22.2 L (42-52) % Plt Count 201 (130-400) K/uL BMP 07/10/21 07:56 Sodium 137 Potassium 3.9 Chloride 103 Carbon Dioxide 22 BUN 47 H Creatinine 6.79 H* Glucose 273 H Calcium 7.1 L Medications Administered Current Inpatient Medications Acetaminophen (Acetaminophen 325 Mg Tab) 650 mg PO Q4H PRN PRN Reason: Pain or Fever Stop: 07/30/21 23:01 Amlodipine Besylate (Amlodipine Besylate 5 Mg Tab) 10 mg PO DAILY [facility] Stop: 07/31/21 08:59 Last Admin: 07/10/21 13:17 Dose: 10 mg Documented by: Clonidine HCl (Clonidine Hcl 0.2 Mg/24 Hr Transderm Sys) 1 patch TD Fr@2200 [facility] Stop: 07/30/21 21:59 Last Admin: 07/07/21 21:17 Dose: 1 patch Documented by: Dextrose (Dextrose 50% 50 Ml Syringe) 25 - 50 ml IV UD PRN; Protocol PRN Reason: Hypoglycemia Protocol Stop: 07/30/21 20:44 Fluticasone/Vilanterol (Fluticasone/Vilanterol 100/25mcg 14 Puffs/Inhaler) 1 puffs INH DAILY [facility] Stop: 07/31/21 08:59 Last Admin: 07/10/21 08:13 Dose: 1 puffs Documented by: Gabapentin (Gabapentin 100 Mg Cap) 200 mg PO TID [facility] Stop: 07/31/21 08:59 Last Admin: 07/10/21 13:51 Dose: 200 mg Documented by: Glucagon (Glucagon For Inj 1 Mg Vial) 1 mg IM UD PRN; Protocol PRN Reason: Hypoglycemia Protocol Stop: 07/30/21 20:44 Glucagon (Glucagon For Inj 1 Mg Vial) 1 mg SQ UD PRN; Protocol PRN Reason: Hypoglycemia Protocol Stop: 07/30/21 23:01 Glucose (Glucose 40% Gel 15 Gm Tube) 15 - 30 gm PO UD PRN; Protocol PRN Reason: Hypoglycemia Protocol Stop: 07/30/21 20:44 Last Admin: 07/02/21 11:02 Dose: 15 gm Documented by: Glucose (Glucose 10 Tabs/Tube) 4 - 8 tabs PO UD PRN; Protocol PRN Reason: Hypoglycemia Protocol Stop: 07/30/21 20:44 Guaifenesin/Dextromethorphan (Guaifenesin/Dextrom Syrup 200mg/20mg 10ml Udc) 10 ml PO Q6H [facility] Stop: 08/09/21 09:29 Last Admin: 07/10/21 13:17 Dose: 10 ml Documented by: Promethazine HCl 12.5 mg/ (Sodium Chloride) 50.5 mls @ 202 mls/hr IV Q6H PRN PRN Reason: Nausea And Vomiting Stop: 07/30/21 23:01 Last Infusion: 07/07/21 01:22 Dose: Infused Documented by: Dextrose/Sodium Chloride (D5w And 1/4nss) 1,000 mls @ 0 mls/hr IV .Q0M [facility] Stop: 08/03/21 07:59 Last Infusion: 07/04/21 08:04 Dose: Infused Documented by: Sodium Chloride (Nss 1000ml) 1,000 mls @ 0 mls/hr IV .Q0M PRN PRN Reason: For Hemodialysis Use ONLY Stop: 07/10/21 15:11 Insulin Aspart (Insulin Aspart Per Unit) 0 units SC ACHS [facility] Stop: 08/03/21 11:29 Last Admin: 07/10/21 13:47 Dose: 5 units Documented by: Insulin Glargine (Insulin Glargine Solostar 100 Units/Ml 3 Ml Pen) 3 units SC HS [facility]; Protocol Stop: 07/10/21 23:59 Last Admin: 07/09/21 21:00 Dose: 3 units Documented by: Insulin Glargine (Insulin Glargine Solostar 100 Units/Ml 3 Ml Pen) 6 units SC [facility] Stop: 08/10/21 16:59 Levalbuterol HCl (Levalbuterol Hcl 1.25 Mg/3 Ml Neb) 1.25 mg NEB Q4H PRN; Protocol PRN Reason: Shortness Of Breath Or Wheezing Stop: 08/07/21 04:59 Last Admin: 07/10/21 04:06 Dose: 1.25 mg Documented by: Levetiracetam (Levetiracetam 500 Mg Tab) 500 mg PO BID [facility] Stop: 07/31/21 08:59 Last Admin: 07/10/21 08:12 Dose: 500 mg Documented by: Metoclopramide HCl (Metoclopramide Hcl 10 Mg Tablet) 10 mg PO TID [facility] Stop: 07/31/21 08:59 Last Admin: 07/10/21 13:52 Dose: 10 mg Documented by: Miscellaneous (Carbohydrates For Hypoglycemia ) 15 - 30 gm PO UD PRN PRN Reason: Hypoglycemia Treatment Stop: 07/30/21 20:44 Last Admin: 07/04/21 20:07 Dose: 30 gm Documented by: Miscellaneous (Remove Clonidine Patch) 1 ea N/A Fr@2159 [facility] Stop: 07/30/21 21:58 Last Admin: 07/07/21 21:18 Dose: 1 ea Documented by: Miscellaneous (Check Clonidine Patch Placement) 1 ea N/A QS [facility] Stop: 07/31/21 00:00 Last Admin: 07/10/21 08:11 Dose: 1 ea Documented by: Miscellaneous Information (Pharmacy Glycemic Mgmt Consult) 1 ea N/A UD PRN PRN Reason: Consult Stop: 08/01/21 10:32 Oxycodone HCl (Oxycodone Hcl Ir 5 Mg Tab (Immediate Release)) 5 mg PO QID PRN PRN Reason: Severe Pain (Scale Score 7-10) Stop: 07/15/21 00:00 Last Admin: 07/10/21 09:03 Dose: 5 mg Documented by: Pantoprazole Sodium (Pantoprazole 40 Mg Tab) 40 mg PO BID [facility] Stop: 08/09/21 20:59 Rosuvastatin Calcium (Rosuvastatin Calcium 20 Mg Tab) 20 mg PO DAILY [facility] Stop: 07/31/21 08:59 Last Admin: 07/10/21 08:13 Dose: 20 mg Documented by: (1) Diabetes Diabetes mellitus complication status: with other specified complication Diabetes mellitus type: type 1 Qualified Code(s): E10.69 - Type 1 diabetes mellitus with other specified complication (2) Chronic pain Chronic pain type: other chronic pain Qualified Code(s): G89.29 - Other chronic pain
[2021-07-10] MEDS: PANTOprazole 40 MG TAB PO SCH (19:45)
[2021-07-10] MEDS: INSULIN GLARGINE SOLOSTAR 100 UNITS/ML 3 ML PEN SC SCH (20:50)
[2021-07-10] MEDS: PROMETHAZINE HCL 12.5 MG in SODIUM CHLORIDE 0.9% 50 ML IV PRN (22:48)
[2021-07-11] MEDS: guaiFENesin/DEXTROM SYRUP 200MG/20MG 10ML UDC PO SCH ×4 (03:22→20:26)
[2021-07-11 06:08] LABS: Base Excess ABG -0.5 mEq/L (-9-1.8); HCO3 ABG 25 mmol/L (19-24); Oxygen Saturation ABG 95.2 % (90-95); PCO2 ABG 44 mmHg (35-46); PO2 ABG 80 mmHg (80-95); pH ABG 7.37 (7.35-7.45)
[2021-07-11 06:12] LABS: Allen Test POS (Pos)
[2021-07-11 06:14] LABS: Hematocrit (blood only) 20.4 % (42-52); Hemoglobin 6.6 g/dL (14.0-18.0); Mean Corpuscular Hemoglobin 29.3 pg (25-34); Mean Corpuscular Hgb Conc 32.4 g/dL (32-36); Mean Corpuscular Volume 90.7 fL (80-100); Mean Platelet Volume 10.5 fL (7.4-10.4); Platelet Count 180 K/uL (130-400); RDW Coefficient of Variation 13.4 % (11.5-14.5); RDW Standard Deviation 44.8 fL (36.4-46.3); Red Blood Count 2.25 M/uL (4.7-6.1); White Blood Count 5.28 K/uL (4.8-10.8)
[2021-07-11 06:26] LABS: BUN Creatinine Ratio 6.6 (10-20); Calcium 7.6 mg/dl (8.5-10.1); Creatinine Clr Calc Pharmacy 15.9 ml/min; Est GFR (African American) 12.1 ml/min; Est GFR (Non-African American) 10.4 ml/min; Magnesium 1.8 mg/dl (1.7-2.4); Potassium 4.3 mmol/L (3.5-5.1)
[2021-07-11 06:27] LABS: Basophils # (auto) 0.03 K/uL (0-0.2); Basophils % (auto) 0.6 %; Eosinophils # (auto) 0.26 K/uL (0-0.5); Eosinophils % (auto) 4.9 %; Immature Granulocytes # (auto) 0.01 K/uL (0.00-0.02); Immature Granulocytes % (auto) 0.2 %; Lymphocytes # (auto) 1.15 K/uL (1.2-3.4); Lymphocytes % (auto) 21.8 %; Monocytes # (auto) 0.81 K/uL (0.11-0.59); Monocytes % (auto) 15.3 %; Neutrophils # (auto) 3.02 K/uL (1.4-6.5); Neutrophils % (auto) 57.2 %; Ovalocytes 1+
--- NOTE | 2021-07-11 07:54 | XRay Report ---
XR chest 1V portable CLINICAL HISTORY: hypoxia TECHNIQUE: Single frontal radiograph of the chest was obtained. Comparison: Comparison is made to chest one view 06/30/[address] chest 07/03/2021 FINDINGS: There is a right dual lumen venous catheter with the tip in the lower SVC. The cardiomediastinal silh ouette is normal. There is prominence and cephalization of the vasculature with Jassi B lines seen. Airspace opacity is seen in the left lower lung. No evidence of pleural effusion or pneumothorax. IMPRESSION: Left lower lung airspace opacity may represent atelectasis, pneumonia, and/or aspiration. Previously noted right upper lobe consolidation is less evident on today's exam. Moderate pulmonary edema is see n. ACT 112: Negative or not required by law. Electronically signed by: Tan Muller M.D. 07/11/2021 7:52 AM
[2021-07-11] MEDS ORDERED: FUROSEMIDE 40 MG/4 ML VIAL IV ONE (08:15)
[2021-07-11] MEDS: METOCLOPRAMIDE HCL 10 MG TABLET PO SCH ×3 (08:49→20:27)
[2021-07-11] MEDS: FLUTICASONE/VILANTEROL 100/25MCG 14 PUFFS/INHALER INH SCH (08:49)
[2021-07-11] MEDS: GABAPENTIN 100 MG CAP PO SCH ×3 (08:49→20:27)
[2021-07-11] MEDS: amLODIPine BESYLATE 5 MG TAB PO SCH (08:50)
[2021-07-11] MEDS: ROSUVASTATIN CALCIUM 20 MG TAB PO SCH (08:50)
[2021-07-11] MEDS: levETIRAcetam 500 MG TAB PO SCH ×2 (08:50→20:27)
[2021-07-11] MEDS: CHECK CLONIDINE PATCH PLACEMENT SCH ×3 (08:50→23:06)
[2021-07-11] MEDS ORDERED: metroNIDAZOLE 500 MG TAB PO SCH (09:00)
[2021-07-11] MEDS: INSULIN ASPART PER UNIT SC SCH ×4 (09:06→20:08)
[2021-07-11] MEDS: LEVALBUTEROL HCL 1.25 MG/3 ML NEB NEB PRN (09:34)
[2021-07-11] MEDS: PANTOprazole 40 MG TAB PO SCH ×2 (09:34→20:27)
[2021-07-11] MEDS: CEFEPIME 1,000 MG in SYRINGE 0 ML IV SCH (10:55)
[2021-07-11] MEDS ORDERED: FUROSEMIDE 40 MG/4 ML VIAL IV STA ×2 (11:28→12:00)
[2021-07-11 12:02] LABS: HCO3 ABG 25 mmol/L (19-24); PCO2 ABG 44 mmHg (35-46); PO2 ABG 85 mmHg (80-95); pH ABG 7.36 (7.35-7.45)
[2021-07-11 12:03] LABS: Allen Test Pos (Pos)
[2021-07-11] MEDS: metroNIDAZOLE 500 MG TAB PO SCH ×2 (13:25→20:26)
[2021-07-11] MEDS ORDERED: HYDROmorphone INJ 0.5 MG/0.5 ML SYR IV STA (13:57)
[2021-07-11] MEDS ORDERED: SODIUM CHLORIDE 0.9% 1000ML 1,000 ML IV PRN (14:21)
[2021-07-11] MEDS ORDERED: SODIUM CHLORIDE 0.9% 250 ML IV PRN (14:29)
[2021-07-11] MEDS ORDERED: OPTIRAY 320 125ml IV ONE (14:32)
--- NOTE | 2021-07-11 14:42 | Pharmacy Report ---
Pharmacy Glycemic Short Note 2 - Date of Service July 11, 2021 - Glycemic Short BSG Results (Last 24 hours): 07/10/21 07/10/21 07/11/21 16:30 20:14 05:39 Glucose 183 H POC Glucose 260 H 164 H 07/11/21 07/11/21 07:36 11:25 Glucose POC Glucose 159 H 173 H OUTPATIENT ANTIDIABETIC REGIMEN: * Lantus 7 units SQ QPM * Humulog sliding scale * HbA1c: 9.0% (06/30/21) -- unreliable in the setting of ESRD, now on HD ASSESSMENT: 07/11/21: * BSGs have been stable past 24 hours. * Pt transitioned back to PM Lantus dosing today. * No further adjustment required at this time. 07/09 * Patient's BSGs yesterday were [phone] mg/dL. Fasting today was 63. * Patient received 23 units of insulin yesterday (7 units of basal and 16 units of bolus). * Had increased basal insulin yesterday to 7 units. Will decrease back to 6 units daily. Will hold off on transitioning due to hypoglycemia today. * Patient may require slightly more insulin on hemodialysis days. * Continue Novolog. 07/08 * Patient's BSGs yesterday were [phone] mg/dL and fasting today is 240 mg/dL. * Patient received 25 units of insulin yesterday (6 units of basal and 19 units of bolus). Plan to transition to once daily dosing this weekend. * Increase back to home dose of 7 units daily. * Continue Novolog as tightened CF/CR has led to hypoglycemia with patient. PLAN FOR INPATIENT GLYCEMIC CONTROL: * Basal insulin * Lantus 6 units SQ qPM * Bolus insulin * NovoLog per scale ACHS or Q6hrs while NPO * Goal Range: Low 110 mg/dL - High 160 mg/dL * Correction Factor: 55 mg/dL/unit * Nutritional / Prandial insulin per carb ratio of 1 unit per 18 grams CHO consumed
--- NOTE | 2021-07-11 14:56 | CT Scan Report ---
CT angio chest PE protocol CLINICAL HISTORY: Acute hypoxic respiratory failure. Extreme shortness of breath when lying flat. Eliza luate for pulmonary embolus. COMPARISON STUDY: Portable chest from 07/11/[address] chest without contrast from 06/25/2021 CT DOSE: 482.74 mGy.cm TECHNIQUE: CT Angio of the chest was performed.followed by image post processing with coronal, and s agittal MIP reformats. Contrast Volume: Isovue 320, 120 ml FINDINGS: Vasculature: There is homogeneous perfusion of the pulmonary vasculature bilaterally. No intraluminal filling defects or evidence for pulmonary embolus is seen. Airway: The airway is clear. No endobronchial lesion is identified. Lungs and pleural: The patient is again status post left upper lobectomy with no evidence for local r ecurrence. Compared to previous examination, there has been partial resolution of interstitial and al veolar edema. However, there has been interval increase in bilateral pleural effusions, right greater than left. Bi lateral lower lobe interstitial and alveolar opacities are also present with air bronchograms. These findings are most suspicious for the presence of pneumonia than atelectasis. Patchy alveolar opacitie s are also present in the right upper lobe. Pleural implants are again seen and unchanged. Mediastinum: Compared to the previous study, there is no change in previously identified adenopathy. The heart size is within normal limits. The thoracic aorta is within normal limits. There is no evide nce for pericardial effusion. Osseous structures: Lytic, destructive lesion of the left ninth rib posterolaterally is again seen. No definite new lytic or blastic lesions are identified. Impression: 1. No CTA evidence for pulmonary embolus. 2. Interval development of increased bilateral pleural effusions, right greater than left. 3. Patchy alveolar opacities are also now seen at both lung bases with air bronchograms. These are mo re suspicious for early pneumonia than atelectasis. 4. Patchy alveolar opacities are seen in the right upper lobe. 5. Pleural implants and Adenopathy are again seen which is unchanged from one week ago. ACT 112: Negative or not required by law. Electronically signed by: Pranav Yip M.D. 07/11/2021 2:55 PM
--- NOTE | 2021-07-11 16:27 | Hospitalist Progress Note ---
Date of Service July 11, 2021 Assessment & Plan (1) Acute respiratory failure with hypoxia: Plan: due to pulmonary edema, pneumonia and anemia. Patient was on 2L of oxygen until overnight when he vomited and respiratory status worsened requiring 15 L via oxymask. Further desaturated on oxymask and hence placed on BIPAP. CXR and CTA reviewed- has pneumonia, bilateral pleural effusion, pulmonary edema but no PE. Started on iv cefepime/flagyl given penicillin allergy. Given iv lasix x2 without response. Nebs did not help much. ABG reviewed. Discussed with nephrology and plan for dialysis today to offload the volume. Patient will be transfused 1 U of PRBC at dialysis. Consent obtained. Transfusion ordered. Patient ill with sudden deterioration and not improving despite different interventions, requiring closer monitoring, multiple visits, multiple interaction with RN, respiratory therapist and nephrology. Spent >60 minutes on this patient care. (2) Acute on chronic anemia: Plan: Multifactorial, Hb 6.6 today. To be transfused 1 U of PRBC at the dialysis. (3) Multifocal pneumonia: Plan: Seen in CT. Overnight vomiting and hence suspect aspiration PNA. Will start on cefepime/flagyl due to penicillin allergy. Will check MRSA nare. patient was already treated with ertapenem for 7 days earlier this admission (4) Acute kidney injury (IVAN) with acute tubular necrosis (ATN): Plan: ESRD on dialysis Acute kidney injury due to ischemic ATN in setting of nausea and vomiting for several days, now with ESRD on dialysis. He has a baseline creatinine of 3 reflecting chronic kidney disease. Started HD on 07/04 with some improvement in creatinine to 4.[address] chest this admission reveals new pulmonary metastatic disease. Overall prognosis is guarded. Discussed this with patient who verbalized understanding. He is interested in continuing with dialysis trial. Volume management with UF removal in HD. He remains anemic; iron infusion given. No PROSPER given cancer dx. Cont management per nephrology. Pulmonary edema, anuric. Cont strict I/Os and daily standing weights. Nephro managing. Currently not in respiratory distress, on NC 2L. Had dialysis today. Will monitor off of oxygen to see if he would need oxygen at discharge. OP dialysis has been arranged for Saturday per CM. MWF schedule. [facility] dialysis center (5) Diabetic gastroparesis: Plan: tolerating a diet- currently npo while on bipap. GI Stimulator in place. (6) Diabetes: Plan: Hypoglycemia this admission. Type I diabetes, glycemic pharmacy for management. Continue to monitor closely. (7) Primary cancer of left lung metastatic to other site: Plan: Recently finished radiation treatments and is scheduling for a PET scan in 1 month. New metastatic disease on left lung seen. Results were shared with his oncologist and with patient. cont per Oncology. (8) HTN (hypertension): Plan: chronic, stable, lisinopril on hold in setting of worsening renal failure. Continue amlodipine 10 mg daily and Catapres TTS weekly patch per home regimen (9) Chronic pain: Plan: Currently managed with gabapentin 200 mg p.o. 3 times daily which is a reduction from his home dose of 400 mg p.o. 3 times daily in setting of renal failure. Refusing APAP, has oxy PRN if needed and he is aware it is there if he needs it. will give a dose of iv dilaudid for exacerbation of pain episode. (10) Seizure disorder: Plan: Chronic, stable, no evidence of seizure activity. Continue Keppra per home regimen at reduced dose of 500 mg p.o. 3 times daily in setting of renal failure (11) DVT prophylaxis: Plan: SCDs, chemoprophylaxis contraindicated in setting of anemia requiring blood transfusion Full code- Discussed again today. He wants to remain full code and be aggressive. Disposition-not stable. On bipap for hypoxic respiratory failure. Getting PRBC transfusion. On IV antibiotics for pneumonia. Getting urgent dialysis today. Admission and Anticipated Discharge Date Admission Date: June 30, 2021 Subjective States he feels like crap today. continues to have intermittent cancer pain and coughing. Had an episode of vomiting overnight after which his oxygen saturation dropped down and was on 15 L via oxymask, up from 2 L NC. CXR showed pulmonary edema and pneumonia/aspiration. No fever, chills. Discussed again about code status and he would like to remain full code and being as aggressive as possible. He consented for blood transfusion Physical Exam Physical Exam: General:lying in bed, sick looking, on BIPAP HEENT: EOMI, FANTASMA Chest: Permcath site clear, Fair breath sounds bilaterally with crackles CVS: Regular rate and rhythm, normal heart sounds, no murmur Abdomen: Soft, non tender, not distended, normal bowel sounds Neuro: Awake, alert, conversing Extremities: edema trace Results & Data Results & Data ([facility]) Vital Signs (Past 12 Hours) Vital Signs Temp Pulse Pulse Resp BP BP Pulse Ox 07/11/21 16:00 94 H 141/87 H 07/11/21 15:40 93 H 160/89 H 07/11/21 15:32 95 H 30 H 99 07/11/21 15:20 77 126/77 07/11/21 15:00 95 H 150/91 H 07/11/21 14:45 26 H 96 07/11/21 13:00 07/11/21 11:36 37.4 C 105 H 20 145/71 H 94 07/11/21 11:29 98 H 23 95 07/11/21 09:37 105 H 24 99 07/11/21 08:00 96 H 07/11/21 07:41 37.1 C 91 H 20 136/71 96 07/11/21 06:21 96 07/11/21 06:10 84 L 07/11/21 06:00 94 Pulse Ox 07/11/21 16:00 07/11/21 15:40 07/11/21 15:32 07/11/21 15:20 07/11/21 15:00 07/11/21 14:45 07/11/21 13:00 90 07/11/21 11:36 07/11/21 11:29 07/11/21 09:37 07/11/21 08:00 07/11/21 07:41 07/11/21 06:21 07/11/21 06:10 07/11/21 06:00 Laboratory Results Short CBC 07/11/21 Range/Units 05:39 WBC 5.28 (4.8-10.8) K/uL Hgb 6.6 L* (14.0-18.0) g/dL Hct 20.4 L* (42-52) % Plt Count 180 (130-400) K/uL BMP 07/11/21 05:39 Sodium 137 Potassium 4.3 Chloride 104 Carbon Dioxide 25 BUN 37 H Creatinine 5.64 H* D Glucose 183 H Calcium 7.6 L Diagnostic Findings Chest X-Ray 07/11/21 05:24 XR chest 1V portable CLINICAL HISTORY: hypoxia TECHNIQUE: Single frontal radiograph of the chest was obtained. Comparison: Comparison is made to chest one view 06/30/[address] chest 07/03/2021 FINDINGS: There is a right dual lumen venous catheter with the tip in the lower SVC. The cardiomediastinal silhouette is normal. There is prominence and cephalization of the vasculature with Jassi B lines seen. Airspace opacity is seen in the left lower lung. No evidence of pleural effusion or pneumothorax. IMPRESSION: Left lower lung airspace opacity may represent atelectasis, pneumonia, and/or aspiration. Previously noted right upper lobe consolidation is less evident on today's exam. Moderate pulmonary edema is seen. ACT 112: Negative or not required by law. Electronically signed by: Tan Muller M.D. 07/11/2021 7:52 AM Chest CTA 07/11/21 11:15 CT angio chest PE protocol CLINICAL HISTORY: Acute hypoxic respiratory failure. Extreme shortness of breath when lying flat. Evaluate for pulmonary embolus. COMPARISON STUDY: Portable chest from 07/11/[address] chest without contrast from 06/25/2021 CT DOSE: 482.74 mGy.cm TECHNIQUE: CT Angio of the chest was performed.followed by image post processing with coronal, and sagittal MIP reformats. Contrast Volume: Isovue 320, 120 ml FINDINGS: Vasculature: There is homogeneous perfusion of the pulmonary vasculature bilaterally. No intraluminal filling defects or evidence for pulmonary embolus is seen. Airway: The airway is clear. No endobronchial lesion is identified. Lungs and pleural: The patient is again status post left upper lobectomy with no evidence for local recurrence. Compared to previous examination, there has been partial resolution of interstitial and alveolar edema. However, there has been interval increase in bilateral pleural effusions, right greater than left. Bilateral lower lobe interstitial and alveolar opacities are also present with air bronchograms. These findings are most suspicious for the presence of pneumonia than atelectasis. Patchy alveolar opacities are also present in the right upper lobe. Pleural implants are again seen and unchanged. Mediastinum: Compared to the previous study, there is no change in previously identified adenopathy. The heart size is within normal limits. The thoracic aorta is within normal limits. There is no evidence for pericardial effusion. Osseous structures: Lytic, destructive lesion of the left ninth rib posterolaterally is again seen. No definite new lytic or blastic lesions are identified. Impression: 1. No CTA evidence for pulmonary embolus. 2. Interval development of increased bilateral pleural effusions, right greater than left. 3. Patchy alveolar opacities are also now seen at both lung bases with air bronchograms. These are more suspicious for early pneumonia than atelectasis. 4. Patchy alveolar opacities are seen in the right upper lobe. 5. Pleural implants and Adenopathy are again seen which is unchanged from one week ago. ACT 112: Negative or not required by law. Electronically signed by: Pranav Yip M.D. 07/11/2021 2:55 PM Medications Administered Current Inpatient Medications Acetaminophen (Acetaminophen 325 Mg Tab) 650 mg PO Q4H PRN PRN Reason: Pain or Fever Stop: 07/30/21 23:01 Amlodipine Besylate (Amlodipine Besylate 5 Mg Tab) 10 mg PO DAILY [facility] Stop: 07/31/21 08:59 Last Admin: 07/11/21 08:50 Dose: 10 mg Documented by: Clonidine HCl (Clonidine Hcl 0.2 Mg/24 Hr Transderm Sys) 1 patch TD Fr@2200 [facility] Stop: 07/30/21 21:59 Last Admin: 07/07/21 21:17 Dose: 1 patch Documented by: Dextrose (Dextrose 50% 50 Ml Syringe) 25 - 50 ml IV UD PRN; Protocol PRN Reason: Hypoglycemia Protocol Stop: 07/30/21 20:44 Fluticasone/Vilanterol (Fluticasone/Vilanterol 100/25mcg 14 Puffs/Inhaler) 1 puffs INH DAILY [facility] Stop: 07/31/21 08:59 Last Admin: 07/11/21 08:49 Dose: 1 puffs Documented by: Gabapentin (Gabapentin 100 Mg Cap) 200 mg PO TID [facility] Stop: 07/31/21 08:59 Last Admin: 07/11/21 13:25 Dose: Not Given Documented by: Glucagon (Glucagon For Inj 1 Mg Vial) 1 mg IM UD PRN; Protocol PRN Reason: Hypoglycemia Protocol Stop: 07/30/21 20:44 Glucagon (Glucagon For Inj 1 Mg Vial) 1 mg SQ UD PRN; Protocol PRN Reason: Hypoglycemia Protocol Stop: 07/30/21 23:01 Glucose (Glucose 40% Gel 15 Gm Tube) 15 - 30 gm PO UD PRN; Protocol PRN Reason: Hypoglycemia Protocol Stop: 07/30/21 20:44 Last Admin: 07/02/21 11:02 Dose: 15 gm Documented by: Glucose (Glucose 10 Tabs/Tube) 4 - 8 tabs PO UD PRN; Protocol PRN Reason: Hypoglycemia Protocol Stop: 07/30/21 20:44 Guaifenesin/Dextromethorphan (Guaifenesin/Dextrom Syrup 200mg/20mg 10ml Udc) 10 ml PO Q6H [facility] Stop: 08/09/21 09:29 Last Admin: 07/11/21 15:15 Dose: Not Given Documented by: Promethazine HCl 12.5 mg/ (Sodium Chloride) 50.5 mls @ 202 mls/hr IV Q6H PRN PRN Reason: Nausea And Vomiting Stop: 07/30/21 23:01 Last Infusion: 07/10/21 23:04 Dose: Infused Documented by: Dextrose/Sodium Chloride (D5w And 1/4nss) 1,000 mls @ 0 mls/hr IV .Q0M [facility] Stop: 08/03/21 07:59 Last Infusion: 07/04/21 08:04 Dose: Infused Documented by: Cefepime HCl 1,000 mg/ Syringe 11.3 mls @ 5.5 mls/min IV Q24H [facility]; Protocol Stop: 07/18/21 09:44 Last Admin: 07/11/21 10:55 Dose: 5.5 mls/min Documented by: Sodium Chloride (Nss 1000ml) 1,000 mls @ 0 mls/hr IV .Q0M PRN PRN Reason: For Hemodialysis Use ONLY Stop: 07/11/21 20:20 Sodium Chloride (Nss) 250 mls @ 15 mls/hr IV .[id number] PRN PRN Reason: For Transfusion Stop: 07/12/21 00:29 Insulin Aspart (Insulin Aspart Per Unit) 0 units SC ACHS [facility] Stop: 08/03/21 11:29 Last Admin: 07/11/21 12:58 Dose: 1 units Documented by: Insulin Glargine (Insulin Glargine Solostar 100 Units/Ml 3 Ml Pen) 6 units SC HS [facility] Stop: 08/10/21 16:59 Levalbuterol HCl (Levalbuterol Hcl 1.25 Mg/3 Ml Neb) 1.25 mg NEB Q4H PRN; Protocol PRN Reason: Shortness Of Breath Or Wheezing Stop: 08/07/21 04:59 Last Admin: 07/11/21 09:34 Dose: 1.25 mg Documented by: Levetiracetam (Levetiracetam 500 Mg Tab) 500 mg PO BID [facility] Stop: 07/31/21 08:59 Last Admin: 07/11/21 08:50 Dose: 500 mg Documented by: Metoclopramide HCl (Metoclopramide Hcl 10 Mg Tablet) 10 mg PO TID [facility] Stop: 07/31/21 08:59 Last Admin: 07/11/21 13:25 Dose: Not Given Documented by: Metronidazole (Metronidazole 500 Mg Tab) 500 mg PO Q8 [facility]; Protocol Stop: 07/18/21 13:59 Last Admin: 07/11/21 13:25 Dose: Not Given Documented by: Miscellaneous (Carbohydrates For Hypoglycemia ) 15 - 30 gm PO UD PRN PRN Reason: Hypoglycemia Treatment Stop: 07/30/21 20:44 Last Admin: 07/04/21 20:07 Dose: 30 gm Documented by: Miscellaneous (Remove Clonidine Patch) 1 ea N/A Fr@2159 [facility] Stop: 07/30/21 21:58 Last Admin: 07/07/21 21:18 Dose: 1 ea Documented by: Miscellaneous (Check Clonidine Patch Placement) 1 ea N/A QS [facility] Stop: 07/31/21 00:00 Last Admin: 07/11/21 08:50 Dose: 1 ea Documented by: Miscellaneous Information (Pharmacy Glycemic Mgmt Consult) 1 ea N/A UD PRN PRN Reason: Consult Stop: 08/01/21 10:32 Nitroglycerin (Nitroglycerin 2% Ointment 30gm Tube) 0.5 inch EXT Q6H [facility] Stop: 08/10/21 14:29 Oxycodone HCl (Oxycodone Hcl Ir 5 Mg Tab (Immediate Release)) 5 mg PO QID PRN PRN Reason: Severe Pain (Scale Score 7-10) Stop: 07/15/21 00:00 Last Admin: 07/10/21 16:57 Dose: 5 mg Documented by: Pantoprazole Sodium (Pantoprazole 40 Mg Tab) 40 mg PO BID [facility] Stop: 08/09/21 20:59 Last Admin: 07/11/21 09:34 Dose: 40 mg Documented by: Rosuvastatin Calcium (Rosuvastatin Calcium 20 Mg Tab) 20 mg PO DAILY [facility] Stop: 07/31/21 08:59 Last Admin: 07/11/21 08:50 Dose: 20 mg Documented by: (1) Diabetes Diabetes mellitus complication status: with other specified complication Diabetes mellitus type: type 1 Qualified Code(s): E10.69 - Type 1 diabetes mellitus with other specified complication (2) Chronic pain Chronic pain type: other chronic pain Qualified Code(s): G89.29 - Other chronic pain
[2021-07-11] MEDS: NITROGLYCERIN 2% OINTMENT 30GM TUBE EXT SCH (18:30)
[2021-07-11] MEDS: oxyCODONE HCL IR 5 MG TAB (IMMEDIATE RELEASE) PO PRN (18:30)
[2021-07-11] MEDS: INSULIN GLARGINE SOLOSTAR 100 UNITS/ML 3 ML PEN SC SCH (18:33)
[2021-07-11] MEDS ORDERED: Nursing to Pharmacy Communication SCH (20:45)
[2021-07-12] MEDS: guaiFENesin/DEXTROM SYRUP 200MG/20MG 10ML UDC PO SCH ×4 (00:30→20:31)
[2021-07-12] MEDS: NITROGLYCERIN 2% OINTMENT 30GM TUBE EXT SCH ×5 (00:30→23:04)
[2021-07-12] MEDS: metroNIDAZOLE 500 MG TAB PO SCH (05:01)
[2021-07-12] MEDS: FLUTICASONE/VILANTEROL 100/25MCG 14 PUFFS/INHALER INH SCH (07:21)
[2021-07-12] MEDS: PANTOprazole 40 MG TAB PO SCH ×2 (07:22→20:32)
[2021-07-12] MEDS: GABAPENTIN 100 MG CAP PO SCH ×3 (07:22→20:31)
[2021-07-12] MEDS: amLODIPine BESYLATE 5 MG TAB PO SCH (07:22)
[2021-07-12] MEDS: METOCLOPRAMIDE HCL 10 MG TABLET PO SCH ×3 (07:22→20:32)
[2021-07-12] MEDS: ROSUVASTATIN CALCIUM 20 MG TAB PO SCH (07:22)
[2021-07-12] MEDS: levETIRAcetam 500 MG TAB PO SCH ×2 (07:24→20:32)
[2021-07-12] MEDS: CEFEPIME 1,000 MG in SYRINGE 0 ML IV SCH (07:26)
[2021-07-12] MEDS: CHECK CLONIDINE PATCH PLACEMENT SCH ×3 (07:28→22:25)
[2021-07-12] MEDS: INSULIN ASPART PER UNIT SC SCH ×4 (08:23→20:32)
[2021-07-12] MEDS ORDERED: ERTAPENEM SODIUM 1,000 MG in SYRINGE 0 ML IV SCH (09:00)
[2021-07-12] MEDS ORDERED: ERTAPENEM SODIUM 500 MG in SYRINGE 0 ML IV SCH (09:45)
[2021-07-12 09:54] LABS: Basophils # (auto) 0.02 K/uL (0-0.2); Basophils % (auto) 0.5 %; Hematocrit (blood only) 23.8 % (42-52); Hemoglobin 7.8 g/dL (14.0-18.0); Lymphocytes # (auto) 0.92 K/uL (1.2-3.4); Lymphocytes % (auto) 21.4 %; Mean Corpuscular Hemoglobin 29.3 pg (25-34); Mean Corpuscular Hgb Conc 32.8 g/dL (32-36); Mean Corpuscular Volume 89.5 fL (80-100); Mean Platelet Volume 10.6 fL (7.4-10.4); Monocytes # (auto) 0.69 K/uL (0.11-0.59); Monocytes % (auto) 16.1 %; Neutrophils # (auto) 2.36 K/uL (1.4-6.5); Platelet Count 241 K/uL (130-400); RDW Coefficient of Variation 13.8 % (11.5-14.5); Red Blood Count 2.66 M/uL (4.7-6.1); White Blood Count 4.29 K/uL (4.8-10.8)
[2021-07-12] MEDS: SACCHAROMYCES BOULARDII 250 MG CAP PO SCH (10:04)
[2021-07-12] MEDS ORDERED: SODIUM CHLORIDE 0.9% 1000ML 1,000 ML IV PRN (10:15)
[2021-07-12 10:31] LABS: BUN Creatinine Ratio 7.3 (10-20); Calcium 8.4 mg/dl (8.5-10.1); Creatinine Clr Calc Pharmacy 21.5 ml/min; Est GFR (African American) 17.1 ml/min; Est GFR (Non-African American) 14.8 ml/min; Magnesium 1.7 mg/dl (1.7-2.4); Phosphorus 5.2 mg/dl (2.5-4.9); Potassium 3.5 mmol/L (3.5-5.1)
[2021-07-12 10:36] LABS: Ferritin 191.8 ng/ml (8-388)
[2021-07-12 10:40] LABS: RBC Morphology Unremarkable
--- NOTE | 2021-07-12 11:08 | Hospitalist Progress Note ---
Date of Service July 12, 2021 Assessment & Plan (1) Acute respiratory failure with hypoxia: Plan: due to pulmonary edema, pneumonia and anemia. -CTA chest-- has pneumonia, bilateral pleural effusion, pulmonary edema but no PE -s/p 1 unit pRBC yesterday at dialysis -Extra dialysis session yesterday to offload volume -Patient was on 2L of oxygen then required 15 L via oxymask then BIPAP yesterdayOxygen weaned down to 6L NC (2) Acute on chronic anemia: Plan: -Multifactorial, Hb 6.6 yesterday. s/p 1 unit pRBC -No evidence of active bleed -Repeat labs ordered but not drawn (3) Multifocal pneumonia: Plan: -Patient recently finished 7 days of ertapenem -was placed on cefepime and flagyl yesterday. Will discontinue -will restart ertapenem -Patient unable to get zosyn due to reported history of PCN allergy. -check procalcitonin, check sputum Cx -will repeat CXR. (4) Acute kidney injury (IVAN) with acute tubular necrosis (ATN): Plan: -Acute kidney injury due to ischemic ATN in setting of nausea and vomiting for several days, now with progression to ESRD requiring dialysis. Started on Dialysis here -Management per Nephrology -OP dialysis has been set up per (5) Diabetic gastroparesis: Plan: tolerating a diet s/p Gastric stimulator Patient reports chronic nausea and constipation Patient counseled on small meals (6) Diabetes: Plan: Hypoglycemia this admission. Type I diabetes, glycemic pharmacy for management. (7) Primary cancer of left lung metastatic to other site: Plan: Recently finished radiation treatments and is scheduling for a PET scan in 1 month. New metastatic disease on left lung seen. Results were shared with his oncologist and with patient. OP follow up with Oncology. (8) HTN (hypertension): Plan: chronic, stable, lisinopril on hold in setting of worsening renal failure. Continue amlodipine 10 mg daily and Catapres TTS weekly patch per home regimen (9) Chronic pain: Plan: Currently managed with gabapentin 200 mg p.o. 3 times daily which is a reduction from his home dose of 400 mg p.o. 3 times daily in setting of renal failure. Refusing APAP, has oxy PRN if needed and he is aware it is there if he needs it. will give a dose of iv dilaudid for exacerbation of pain episode. (10) Seizure disorder: Plan: Chronic, stable, no evidence of seizure activity. Continue Keppra per home regimen at reduced dose of 500 mg p.o. 3 times daily in setting of renal failure (11) DVT prophylaxis: Plan: SCDs, chemoprophylaxis contraindicated in setting of anemia requiring blood transfusion Full code- Discussed again today. He wants to remain full code and be aggressive. Admission and Anticipated Discharge Date Admission Date: June 30, 2021 Subjective Oxygen weaned down to 6L NC Intermittently nauseous but no vomiting since yesterday (chronic nausea is normal for him). Last BM was 2 days ago (also normal for him) tolerating diet. Reports he eats small meals due to gastroparesis Reports chronic cough for past 1 month now Physical Exam Physical Exam: Appears older than stated age Appears chronically ill No acute distress Respiratory: Diminished diffusely Intermittent cough, no wheezing/rhonchi/rales Cardiovascular: regular rate and rhythm, no murmurs/rubs/gallops Gastrointestinal (Abdomen): soft, non distended Musculoskeletal: no edema Neurologic: awake, alert, spontaneously moving extremities Results & Data Results & Data ([facility]) Vital Signs (Past 12 Hours) Vital Signs Temp Pulse Pulse Resp BP BP Pulse Ox 07/12/21 10:48 36.5 C 86 18 146/75 H 91 07/12/21 07:15 35.9 C L 76 16 114/63 91 07/12/21 07:08 80 07/12/21 07:03 75 23 91 07/12/21 03:00 36.4 C L 78 20 122/70 96 07/12/21 02:00 80 27 H 96 07/11/21 23:11 36.3 C L 85 18 112/56 L 97 Laboratory Results Short CBC 07/12/21 Range/Units 09:38 WBC 4.29 L (4.8-10.8) K/uL Hgb 7.8 L (14.0-18.0) g/dL Hct 23.8 L (42-52) % Plt Count 241 (130-400) K/uL BMP 07/12/21 09:38 Sodium 139 Potassium 3.5 Chloride 102 Carbon Dioxide 27 BUN 31 H Creatinine 4.23 H D Glucose 106 H Calcium 8.4 L Medications Administered Current Inpatient Medications Acetaminophen (Acetaminophen 325 Mg Tab) 650 mg PO Q4H PRN PRN Reason: Pain or Fever Stop: 07/30/21 23:01 Amlodipine Besylate (Amlodipine Besylate 5 Mg Tab) 10 mg PO DAILY [facility] Stop: 07/31/21 08:59 Last Admin: 07/12/21 07:22 Dose: 10 mg Documented by: Clonidine HCl (Clonidine Hcl 0.2 Mg/24 Hr Transderm Sys) 1 patch TD Fr@2200 [facility] Stop: 07/30/21 21:59 Last Admin: 07/07/21 21:17 Dose: 1 patch Documented by: Dextrose (Dextrose 50% 50 Ml Syringe) 25 - 50 ml IV UD PRN; Protocol PRN Reason: Hypoglycemia Protocol Stop: 07/30/21 20:44 Fluticasone/Vilanterol (Fluticasone/Vilanterol 100/25mcg 14 Puffs/Inhaler) 1 puffs INH DAILY [facility] Stop: 07/31/21 08:59 Last Admin: 07/12/21 07:21 Dose: 1 puffs Documented by: Gabapentin (Gabapentin 100 Mg Cap) 200 mg PO TID [facility] Stop: 07/31/21 08:59 Last Admin: 07/12/21 07:22 Dose: 200 mg Documented by: Glucagon (Glucagon For Inj 1 Mg Vial) 1 mg IM UD PRN; Protocol PRN Reason: Hypoglycemia Protocol Stop: 07/30/21 20:44 Glucagon (Glucagon For Inj 1 Mg Vial) 1 mg SQ UD PRN; Protocol PRN Reason: Hypoglycemia Protocol Stop: 07/30/21 23:01 Glucose (Glucose 40% Gel 15 Gm Tube) 15 - 30 gm PO UD PRN; Protocol PRN Reason: Hypoglycemia Protocol Stop: 07/30/21 20:44 Last Admin: 07/02/21 11:02 Dose: 15 gm Documented by: Glucose (Glucose 10 Tabs/Tube) 4 - 8 tabs PO UD PRN; Protocol PRN Reason: Hypoglycemia Protocol Stop: 07/30/21 20:44 Guaifenesin/Dextromethorphan (Guaifenesin/Dextrom Syrup 200mg/20mg 10ml Udc) 10 ml PO Q6H [facility] Stop: 08/09/21 09:29 Last Admin: 07/12/21 07:24 Dose: 10 ml Documented by: Promethazine HCl 12.5 mg/ (Sodium Chloride) 50.5 mls @ 202 mls/hr IV Q6H PRN PRN Reason: Nausea And Vomiting Stop: 07/30/21 23:01 Last Infusion: 07/10/21 23:04 Dose: Infused Documented by: Dextrose/Sodium Chloride (D5w And 1/4nss) 1,000 mls @ 0 mls/hr IV .Q0M [facility] Stop: 08/03/21 07:59 Last Infusion: 07/04/21 08:04 Dose: Infused Documented by: Ertapenem 500 mg/ Syringe 5 mls @ 2 mls/min IV DAILY [facility]; Protocol Stop: 07/19/21 09:44 Last Admin: 07/12/21 10:04 Dose: 2 mls/min Documented by: Sodium Chloride (Nss 1000ml) 1,000 mls @ 0 mls/hr IV .Q0M PRN PRN Reason: For Hemodialysis Use ONLY Stop: 07/12/21 16:14 Insulin Aspart (Insulin Aspart Per Unit) 0 units SC ACHS [facility] Stop: 08/03/21 11:29 Last Admin: 07/12/21 08:23 Dose: Not Given Documented by: Insulin Glargine (Insulin Glargine Solostar 100 Units/Ml 3 Ml Pen) 6 units SC HS [facility] Stop: 08/10/21 16:59 Last Admin: 07/11/21 18:33 Dose: 6 units Documented by: Levalbuterol HCl (Levalbuterol Hcl 1.25 Mg/3 Ml Neb) 1.25 mg NEB Q4H PRN; Protocol PRN Reason: Shortness Of Breath Or Wheezing Stop: 08/07/21 04:59 Last Admin: 07/11/21 09:34 Dose: 1.25 mg Documented by: Levetiracetam (Levetiracetam 500 Mg Tab) 500 mg PO BID [facility] Stop: 07/31/21 08:59 Last Admin: 07/12/21 07:24 Dose: 500 mg Documented by: Metoclopramide HCl (Metoclopramide Hcl 10 Mg Tablet) 10 mg PO TID [facility] Stop: 07/31/21 08:59 Last Admin: 07/12/21 07:22 Dose: 10 mg Documented by: Miscellaneous (Carbohydrates For Hypoglycemia ) 15 - 30 gm PO UD PRN PRN Reason: Hypoglycemia Treatment Stop: 07/30/21 20:44 Last Admin: 07/04/21 20:07 Dose: 30 gm Documented by: Gilberto (Remove Clonidine Patch) 1 ea N/A Fr@2159 [facility] Stop: 07/30/21 21:58 Last Admin: 07/07/21 21:18 Dose: 1 ea Documented by: Gilberto (Check Clonidine Patch Placement) 1 ea N/A QS [facility] Stop: 07/31/21 00:00 Last Admin: 07/12/21 07:28 Dose: 1 ea Documented by: Gilberto Information (Pharmacy Glycemic Mgmt Consult) 1 ea N/A UD PRN PRN Reason: Consult Stop: 08/01/21 10:32 Nitroglycerin (Nitroglycerin 2% Ointment 30gm Tube) 0.5 inch EXT Q6H [facility] Stop: 08/10/21 14:29 Last Admin: 07/12/21 04:50 Dose: 0.5 inch Documented by: Oxycodone HCl (Oxycodone Hcl Ir 5 Mg Tab (Immediate Release)) 5 mg PO QID PRN PRN Reason: Severe Pain (Scale Score 7-10) Stop: 07/15/21 00:00 Last Admin: 07/11/21 18:30 Dose: 5 mg Documented by: Pantoprazole Sodium (Pantoprazole 40 Mg Tab) 40 mg PO BID [facility] Stop: 08/09/21 20:59 Last Admin: 07/12/21 07:22 Dose: 40 mg Documented by: Rosuvastatin Calcium (Rosuvastatin Calcium 20 Mg Tab) 20 mg PO DAILY [facility] Stop: 07/31/21 08:59 Last Admin: 07/12/21 07:22 Dose: 20 mg Documented by: Saccharomyces Boulardii (Saccharomyces Boulardii 250 Mg Cap) 250 mg PO DAILY [facility] Stop: 08/11/21 08:59 Last Admin: 07/12/21 10:04 Dose: 250 mg Documented by: (1) Diabetes Diabetes mellitus complication status: with other specified complication Diabetes mellitus type: type 1 Qualified Code(s): E10.69 - Type 1 diabetes mellitus with other specified complication (2) Chronic pain Chronic pain type: other chronic pain Qualified Code(s): G89.29 - Other chronic pain
--- NOTE | 2021-07-12 12:28 | Nephrology Progress Note ---
Date of Service July 12, 2021 Assessment & Plan Admission and Anticipated Discharge Date Admission Date: June 30, 2021 Subjective Subjective Assessment & Plan (1) ESRD (end stage renal disease) on dialysis: Plan: Patient with oligoanuric acute kidney injury on advanced CKD 4 now ESRD. ischemic ATN in setting of nausea and vomiting for several days on underlying advanced diabetic nephropathy. Patient also found to have aspiration pneumonia and more recently pulmonary edema. Given history of metastatic cancer and of the multiple comorbidities, patient may not be a good candidate for dialysis. However he wishes to try and understands risks it may not go well. He finds these preferable to no intervention. consent is on chart. Plan trial of HD 4-6 wks then reassess tolerance and discuss permanent vasc access at that time. -TDC placed 07/04; first HD same day, and had dialysis on 07/05, 07/06,/07/07 07/10 and 07/11 and now today Take 4 kilo off today. no heparin and no epo He wishes to dialyze under care of Dr Morales at [facility] after d/c No PROSPER d/t cancer hx > monitor anemia frequently as he will be transfusion dependent. (2) Primary cancer of left lung metastatic to other site: Plan: Patient is status post resection and radiation to the ninth rib. not a candidate for further chemo per oncology. upcoming PET a few weeks after d/c; multiple mets noted on 07/03 CT Subjective got very SOB yesterday and did and emergent dialysis and feels somewhat better after that. Review of Systems Review of Systems: All other systems were reviewed and negative except as noted in HPI Physical Exam Physical Exam: General: frail elderly male, sitting comfortably in bed, not in acute distress, on NC HEENT: EOMI, FANTASMA, MMM Chest: Permcat site clear, Fair breath sounds bilaterally with bilateral rales CVS: Regular rate and rhythm, normal heart sounds, no murmur Abdomen: Soft, non tender, not distended, normal bowel sounds Neuro: Awake, alert, oriented, conversing well, non focal Extremities: 1+ edema b/l Results & Data ([facility]) Vital Signs (Past 12 Hours) Vital Signs Temp Pulse Pulse Resp BP BP Pulse Ox 07/12/21 10:48 36.5 C 86 18 146/75 H 91 07/12/21 07:15 35.9 C L 76 16 114/63 91 07/12/21 07:08 80 07/12/21 07:03 75 23 91 07/12/21 03:00 36.4 C L 78 20 122/70 96 07/12/21 02:00 80 27 H 96
--- NOTE | 2021-07-12 16:56 | XRay Report ---
XR chest 2V PA/lateral CLINICAL HISTORY: pneumonia, pleural effusion, follow up TECHNIQUE: AP and lateral radiographs of the chest was obtained. Comparison: Comparison is made to chest one view 07/23/2021 FINDINGS: No lines and tubes are seen. The cardiomediastinal silhouette is stable. There is prominence and ceph alization of the vasculature with Jassi B lines seen. Bilateral lower lung predominant airspace opac ities may represent atelectasis, pneumonia, and/or aspiration. No evidence of pleural effusion or pne umothorax. IMPRESSION: Moderate pulmonary edema. Bilateral lower lung, airspace opacities are unchanged, compatible with ate lectasis, aspiration and/or pneumonia. ACT 112: Negative or not required by law. Electronically signed by: Tan Muller M.D. 07/12/2021 4:55 PM
[2021-07-12] MEDS: ERTAPENEM SODIUM 500 MG in SYRINGE 0 ML IV SCH (20:33)
[2021-07-12] MEDS: INSULIN GLARGINE SOLOSTAR 100 UNITS/ML 3 ML PEN SC SCH (20:33)
[2021-07-12] MEDS: oxyCODONE HCL IR 5 MG TAB (IMMEDIATE RELEASE) PO PRN (23:47)
[2021-07-13] MEDS: guaiFENesin/DEXTROM SYRUP 200MG/20MG 10ML UDC PO SCH ×4 (00:58→22:52)
[2021-07-13] MEDS: NITROGLYCERIN 2% OINTMENT 30GM TUBE EXT SCH ×3 (04:18→15:59)
[2021-07-13 06:06] LABS: Basophils # (auto) 0.05 K/uL (0-0.2); Basophils % (auto) 1.1 %; Eosinophils # (auto) 0.31 K/uL (0-0.5); Eosinophils % (auto) 7.1 %; Hematocrit (blood only) 23.7 % (42-52); Hemoglobin 7.8 g/dL (14.0-18.0); Immature Granulocytes # (auto) 0.01 K/uL (0.00-0.02); Immature Granulocytes % (auto) 0.2 %; Lymphocytes # (auto) 0.75 K/uL (1.2-3.4); Lymphocytes % (auto) 17.2 %; Mean Corpuscular Hemoglobin 29.3 pg (25-34); Mean Corpuscular Hgb Conc 32.9 g/dL (32-36); Mean Corpuscular Volume 89.1 fL (80-100); Mean Platelet Volume 10.5 fL (7.4-10.4); Monocytes # (auto) 0.62 K/uL (0.11-0.59); Monocytes % (auto) 14.2 %; Neutrophils # (auto) 2.63 K/uL (1.4-6.5); Neutrophils % (auto) 60.2 %; Platelet Count 267 K/uL (130-400); RDW Coefficient of Variation 13.4 % (11.5-14.5); RDW Standard Deviation 43.7 fL (36.4-46.3); Red Blood Count 2.66 M/uL (4.7-6.1); White Blood Count 4.37 K/uL (4.8-10.8)
[2021-07-13 06:28] LABS: BUN Creatinine Ratio 6.8 (10-20); Calcium 7.3 mg/dl (8.5-10.1); Creatinine Clr Calc Pharmacy 25.9 ml/min; Est GFR (African American) 21.4 ml/min; Est GFR (Non-African American) 18.5 ml/min; Potassium 3.3 mmol/L (3.5-5.1)
[2021-07-13 06:41] LABS: Ovalocytes 1+
[2021-07-13] MEDS: FLUTICASONE/VILANTEROL 100/25MCG 14 PUFFS/INHALER INH SCH (07:25)
[2021-07-13] MEDS: ROSUVASTATIN CALCIUM 20 MG TAB PO SCH (07:26)
[2021-07-13] MEDS: amLODIPine BESYLATE 5 MG TAB PO SCH (07:26)
[2021-07-13] MEDS: PANTOprazole 40 MG TAB PO SCH ×2 (07:26→20:25)
[2021-07-13] MEDS: METOCLOPRAMIDE HCL 10 MG TABLET PO SCH ×3 (07:26→20:25)
[2021-07-13] MEDS: CHECK CLONIDINE PATCH PLACEMENT SCH ×2 (07:27→15:58)
[2021-07-13] MEDS: levETIRAcetam 500 MG TAB PO SCH ×2 (07:27→20:26)
[2021-07-13] MEDS: GABAPENTIN 100 MG CAP PO SCH ×3 (07:27→11:43)
[2021-07-13] MEDS: SACCHAROMYCES BOULARDII 250 MG CAP PO SCH (07:27)
[2021-07-13] MEDS: INSULIN ASPART PER UNIT SC SCH ×3 (08:16→17:14)
[2021-07-13] MEDS ORDERED: INSULIN GLARGINE SOLOSTAR 100 UNITS/ML 3 ML PEN SC SCH ×2 (09:00→21:00)
--- NOTE | 2021-07-13 10:25 | Nephrology Progress Note ---
Date of Service July 13, 2021 Assessment & Plan Admission and Anticipated Discharge Date Admission Date: June 30, 2021 Subjective Assessment & Plan (1) ESRD (end stage renal disease) on dialysis: Plan: Patient with oligoanuric acute kidney injury on advanced CKD 4 now ESRD. ischemic ATN in setting of nausea and vomiting for several days on underlying advanced diabetic nephropathy. Patient also found to have aspiration pneumonia and more recently pulmonary edema. Given history of metastatic cancer and of the multiple comorbidities, patient may not be a good candidate for dialysis. However he wishes to try and understands risks it may not go well. He finds these preferable to no intervention. consent is on chart. Plan trial of HD 4-6 wks then reassess tolerance and discuss permanent vasc access at that time. TDC placed 07/04; first HD same day, and had dialysis on 07/05, 07/06,/07/07 07/10 and 07/11 and 07/12. Next HD tomorrow for 4 hrs and take 4 kilo off Fels breathing better after aggressive UF. He wishes to dialyze at [facility] after d/c. From [facility] but is moving to [place] No PROSPER d/t cancer hx > monitor anemia frequently as he will be transfusion dependent. (2) Primary cancer of left lung metastatic to other site: Plan: Patient is status post resection and radiation to the ninth rib. not a candidate for further chemo per oncology. upcoming PET a few weeks after d/c; multiple mets noted on 07/03 CT He wants to have mediport placed for convenience. Will ask Hospitalist to look into this Subjective Still SOB but less and less edema Review of Systems Review of Systems: All other systems were reviewed and negative except as noted in HPI Physical Exam Physical Exam: General: frail elderly male, sitting comfortably in bed, not in acute distress, on [place] HEENT: EOMI, FANTASMA, MMM Chest: Permcath site clear, Fair breath sounds bilaterally with bilateral rales CVS: Regular rate and rhythm, normal heart sounds, no murmur Abdomen: Soft, non tender, not distended, normal bowel sounds Neuro: Awake, alert, oriented, conversing well, non focal Extremities: 1+ edema b/l--less Results & Data ([facility]) Vital Signs (Past 12 Hours) Vital Signs Temp Pulse Pulse Pulse Resp BP Pulse Ox 07/13/21 07:12 89 07/13/21 06:00 37.3 C 78 18 127/70 97 07/13/21 05:54 77 07/13/21 03:00 73 24 94 07/13/21 02:48 36.5 C 79 20 135/74 95 07/12/21 23:53 80 22 98 07/12/21 23:32 37.2 C 81 18 138/74 93
--- NOTE | 2021-07-13 12:27 | Hospitalist Progress Note ---
Date of Service July 13, 2021 Assessment & Plan Admission and Anticipated Discharge Date Admission Date: June 30, 2021 Subjective Assessment & Plan (1) ESRD (end stage renal disease) on dialysis: Plan: Patient with oligoanuric acute kidney injury on advanced CKD 4 now ESRD. ischemic ATN in setting of nausea and vomiting for several days on underlying advanced diabetic nephropathy. Patient also found to have aspiration pneumonia and more recently pulmonary edema. Given history of metastatic cancer and of the multiple comorbidities, patient may not be a good candidate for dialysis. However he wishes to try and understands risks it may not go well. He finds these preferable to no intervention. consent is on chart. Plan trial of HD 4-6 wks then reassess tolerance and discuss permanent vasc access at that time. TDC placed 07/04; first HD same day, and had dialysis on 07/05, 07/06,/07/07 07/10 and 07/11 and 07/12. Next HD tomorrow for 4 hrs and take 4 kilo off Fels breathing better after aggressive UF. He wishes to dialyze at [facility] after d/c. From [facility] but is moving to [place] No PROSPER d/t cancer hx > monitor anemia frequently as he will be transfusion dependent. (2) Primary cancer of left lung metastatic to other site: Plan: Patient is status post resection and radiation to the ninth rib. not a candidate for further chemo per oncology. upcoming PET a few weeks after d/c; multiple mets noted on 07/03 CT He wants to have mediport placed for convenience. Will ask Hospitalist to look into this Subjective Still SOB but less and less edema Review of Systems Review of Systems: All other systems were reviewed and negative except as noted in HPI Physical Exam Physical Exam: General: frail elderly male, sitting comfortably in bed, not in acute distress, on [place] HEENT: EOMI, FANTASMA, MMM Chest: Permcath site clear, Fair breath sounds bilaterally with bilateral rales CVS: Regular rate and rhythm, normal heart sounds, no murmur Abdomen: Soft, non tender, not distended, normal bowel sounds Neuro: Awake, alert, oriented, conversing well, non focal Extremities: 1+ edema b/l--less Results & Data Results & Data ([facility]) Vital Signs (Past 12 Hours) Vital Signs Temp Pulse Pulse Pulse Resp BP BP 07/13/21 11:03 36.6 C 75 20 128/73 07/13/21 07:12 89 07/13/21 06:00 37.3 C 78 18 127/70 07/13/21 05:54 77 07/13/21 03:00 73 24 07/13/21 02:48 36.5 C 79 20 135/74 Pulse Ox 07/13/21 11:03 100 07/13/21 07:12 07/13/21 06:00 97 07/13/21 05:54 07/13/21 03:00 94 07/13/21 02:48 95
--- NOTE | 2021-07-13 12:30 | Hospitalist Progress Note ---
Date of Service July 13, 2021 Assessment & Plan (1) Acute respiratory failure with hypoxia: Plan: due to pulmonary edema, pneumonia and anemia. -CTA chest 07/11-- has pneumonia, bilateral pleural effusion, pulmonary edema but no PE -s/p 1 unit pRBC 07/11 at dialysis -Patient was on 2L of oxygen then required 15 L via oxymask then BIPAP now weaned down to 6L NC -Repeat CXR yesterday again shows volume overload. Patient is supposed to be on a fluid restriction but with multiple beverages noted in his room. Will ask for Quiller Hand to review Renal and fluid restricted diet to ensure compliance (2) Acute on chronic anemia: Plan: -Multifactorial, Hb 6.6 s/p 1 unit pRBC -No evidence of active bleed (3) Multifocal pneumonia: Plan: -Patient recently finished 7 days of ertapenem -Patient unable to get zosyn due to reported history of PCN allergy. - sputum Cx pending -CXR yesterday showed bilateral lower opacities consistent with atelectasis, aspiration or pneumonia -was placed on cefepime and flagyl 07/11 after episode of emesis and hypoxia. Cefepime/flagyl discontinued 07/12 and Ertapenem restarted. Procalcitonin neg x 2 since event. Will discontinue antibiotics tomorrow if 3rd PCT remains negative (4) Acute kidney injury (IVAN) with acute tubular necrosis (ATN): Plan: -Acute kidney injury due to ischemic ATN in setting of nausea and vomiting for several days, now with progression to ESRD requiring dialysis. Started on Dialysis here -Management per Nephrology -OP dialysis has been set up per (5) Diabetic gastroparesis: Plan: tolerating a diet s/p Gastric stimulator Patient reports chronic nausea and constipation Patient counseled on small meals (6) Diabetes: Plan: Hypoglycemia this admission. Type I diabetes, glycemic pharmacy for management. (7) Primary cancer of left lung metastatic to other site: Plan: -Recently finished radiation treatments and is scheduling for a PET scan in 1 month. New metastatic disease on left lung seen. Results were shared with his oncologist and with patient. OP follow up with Oncology. -Patient requesting a port be placed to reduce blood draws. Will discuss with his oncologist about this. (8) HTN (hypertension): Plan: chronic, stable, lisinopril on hold in setting of worsening renal failure. Continue amlodipine 10 mg daily and Catapres TTS weekly patch per home regimen (9) Chronic pain: Plan: Currently managed with gabapentin 200 mg p.o. 3 times daily which is a reduction from his home dose of 400 mg p.o. 3 times daily in setting of renal failure. Refusing APAP, has oxy PRN if needed and he is aware it is there if he needs it. will give a dose of iv dilaudid for exacerbation of pain episode. (10) Seizure disorder: Plan: Chronic, stable, no evidence of seizure activity. Continue Keppra per home regimen at reduced dose of 500 mg p.o. 3 times daily in setting of renal failure (11) DVT prophylaxis: Plan: SCDs, chemoprophylaxis contraindicated in setting of anemia requiring blood transfusion Full code- Discussed again today. He wants to remain full code and be aggressive. Admission and Anticipated Discharge Date Admission Date: June 30, 2021 Subjective Still with shortness of breath Admits to drinking too much fluid. Agreeable to meeting with vb net developer had dialysis yesterday Inquiring about a port so he can reduce lab draws. Physical Exam Physical Exam: Sitting in bed, pleasant, no acute distress Respiratory: +crackles at bases, no wheezing/rhonchi Cardiovascular: regular rate and rhythm, no murmurs/rubs/gallops Gastrointestinal (Abdomen): soft, non tender Musculoskeletal: no edema Results & Data Results & Data ([facility]) Vital Signs (Past 12 Hours) Vital Signs Temp Pulse Pulse Pulse Resp BP BP 07/13/21 11:03 36.6 C 75 20 128/73 07/13/21 07:12 89 07/13/21 06:00 37.3 C 78 18 127/70 07/13/21 05:54 77 07/13/21 03:00 73 24 07/13/21 02:48 36.5 C 79 20 135/74 Pulse Ox 07/13/21 11:03 100 07/13/21 07:12 07/13/21 06:00 97 07/13/21 05:54 07/13/21 03:00 94 07/13/21 02:48 95 Laboratory Results Short CBC 07/13/21 Range/Units 05:36 WBC 4.37 L (4.8-10.8) K/uL Hgb 7.8 L (14.0-18.0) g/dL Hct 23.7 L (42-52) % Plt Count 267 (130-400) K/uL BMP 07/13/21 05:36 Sodium 138 Potassium 3.3 L Chloride 101 Carbon Dioxide 27 BUN 24 H Creatinine 3.51 H D Glucose 209 H Calcium 7.3 L Medications Administered Current Inpatient Medications Acetaminophen (Acetaminophen 325 Mg Tab) 650 mg PO Q4H PRN PRN Reason: Pain or Fever Stop: 07/30/21 23:01 Amlodipine Besylate (Amlodipine Besylate 5 Mg Tab) 10 mg PO DAILY DAMIR Stop: 07/31/21 08:59 Last Admin: 07/13/21 07:26 Dose: 10 mg Documented by: Clonidine HCl (Clonidine Hcl 0.2 Mg/24 Hr Transderm Sys) 1 patch TD Fr@2200 [facility] Stop: 07/30/21 21:59 Last Admin: 07/07/21 21:17 Dose: 1 patch Documented by: Dextrose (Dextrose 50% 50 Ml Syringe) 25 - 50 ml IV UD PRN; Protocol PRN Reason: Hypoglycemia Protocol Stop: 07/30/21 20:44 Fluticasone/Vilanterol (Fluticasone/Vilanterol 100/25mcg 14 Puffs/Inhaler) 1 puffs INH DAILY DAMIR Stop: 07/31/21 08:59 Last Admin: 07/13/21 07:25 Dose: 1 puffs Documented by: Gabapentin (Gabapentin 100 Mg Cap) 200 mg PO TID DAMIR Stop: 07/31/21 08:59 Last Admin: 07/13/21 11:43 Dose: 200 mg Documented by: Glucagon (Glucagon For Inj 1 Mg Vial) 1 mg IM UD PRN; Protocol PRN Reason: Hypoglycemia Protocol Stop: 07/30/21 20:44 Glucagon (Glucagon For Inj 1 Mg Vial) 1 mg SQ UD PRN; Protocol PRN Reason: Hypoglycemia Protocol Stop: 07/30/21 23:01 Glucose (Glucose 40% Gel 15 Gm Tube) 15 - 30 gm PO UD PRN; Protocol PRN Reason: Hypoglycemia Protocol Stop: 07/30/21 20:44 Last Admin: 07/02/21 11:02 Dose: 15 gm Documented by: Glucose (Glucose 10 Tabs/Tube) 4 - 8 tabs PO UD PRN; Protocol PRN Reason: Hypoglycemia Protocol Stop: 07/30/21 20:44 Guaifenesin/Dextromethorphan (Guaifenesin/Dextrom Syrup 200mg/20mg 10ml Udc) 10 ml PO Q6H [facility] Stop: 08/09/21 09:29 Last Admin: 07/13/21 07:34 Dose: 10 ml Documented by: Promethazine HCl 12.5 mg/ (Sodium Chloride) 50.5 mls @ 202 mls/hr IV Q6H PRN PRN Reason: Nausea And Vomiting Stop: 07/30/21 23:01 Last Infusion: 07/10/21 23:04 Dose: Infused Documented by: Dextrose/Sodium Chloride (D5w And 1/4nss) 1,000 mls @ 0 mls/hr IV .Q0M [facility] Stop: 08/03/21 07:59 Last Infusion: 07/04/21 08:04 Dose: Infused Documented by: Ertapenem 500 mg/ Syringe 5 mls @ 2 mls/min IV Q24H [facility]; Protocol Stop: 07/19/21 21:59 Last Admin: 07/12/21 20:33 Dose: 2 mls/min Documented by: Insulin Aspart (Insulin Aspart Per Unit) 0 units SC ACHS [facility] Stop: 08/03/21 11:29 Last Admin: 07/13/21 12:21 Dose: Not Given Documented by: Insulin Glargine (Insulin Glargine Solostar 100 Units/Ml 3 Ml Pen) 6 units SC HS [facility] Stop: 08/12/21 20:59 Levalbuterol HCl (Levalbuterol Hcl 1.25 Mg/3 Ml Neb) 1.25 mg NEB Q4H PRN; Protocol PRN Reason: Shortness Of Breath Or Wheezing Stop: 08/07/21 04:59 Last Admin: 07/11/21 09:34 Dose: 1.25 mg Documented by: Levetiracetam (Levetiracetam 500 Mg Tab) 500 mg PO BID [facility] Stop: 07/31/21 08:59 Last Admin: 07/13/21 07:27 Dose: 500 mg Documented by: Metoclopramide HCl (Metoclopramide Hcl 10 Mg Tablet) 10 mg PO TID [facility] Stop: 07/31/21 08:59 Last Admin: 07/13/21 11:15 Dose: 10 mg Documented by: Miscellaneous (Carbohydrates For Hypoglycemia ) 15 - 30 gm PO UD PRN PRN Reason: Hypoglycemia Treatment Stop: 07/30/21 20:44 Last Admin: 07/04/21 20:07 Dose: 30 gm Documented by: Gilberto (Remove Clonidine Patch) 1 ea N/A Fr@2159 [facility] Stop: 07/30/21 21:58 Last Admin: 07/07/21 21:18 Dose: 1 ea Documented by: Gilberto (Check Clonidine Patch Placement) 1 ea N/A QS [facility] Stop: 07/31/21 00:00 Last Admin: 07/13/21 07:27 Dose: 1 ea Documented by: Gilberto Information (Pharmacy Glycemic Mgmt Consult) 1 ea N/A UD PRN PRN Reason: Consult Stop: 08/01/21 10:32 Nitroglycerin (Nitroglycerin 2% Ointment 30gm Tube) 0.5 inch EXT Q6H [facility] Stop: 08/10/21 14:29 Last Admin: 07/13/21 11:47 Dose: 0.5 inch Documented by: Oxycodone HCl (Oxycodone Hcl Ir 5 Mg Tab (Immediate Release)) 5 mg PO QID PRN PRN Reason: Severe Pain (Scale Score 7-10) Stop: 07/15/21 00:00 Last Admin: 07/12/21 23:47 Dose: 5 mg Documented by: Pantoprazole Sodium (Pantoprazole 40 Mg Tab) 40 mg PO BID [facility] Stop: 08/09/21 20:59 Last Admin: 07/13/21 07:26 Dose: 40 mg Documented by: Rosuvastatin Calcium (Rosuvastatin Calcium 20 Mg Tab) 20 mg PO DAILY [facility] Stop: 07/31/21 08:59 Last Admin: 07/13/21 07:26 Dose: 20 mg Documented by: Saccharomyces Boulardii (Saccharomyces Boulardii 250 Mg Cap) 250 mg PO DAILY [facility] Stop: 08/11/21 08:59 Last Admin: 07/13/21 07:27 Dose: 250 mg Documented by: (1) Diabetes Diabetes mellitus complication status: with other specified complication Diabetes mellitus type: type 1 Qualified Code(s): E10.69 - Type 1 diabetes mellitus with other specified complication (2) Chronic pain Chronic pain type: other chronic pain Qualified Code(s): G89.29 - Other chronic pain
--- NOTE | 2021-07-13 12:49 | Pharmacy Report ---
Pharmacy Glycemic Short Note 2 - Date of Service July 13, 2021 - Glycemic Short BSG Results (Last 24 hours): 07/12/21 07/12/21 07/13/21 16:56 20:24 05:36 Glucose 209 H POC Glucose 187 H 143 H 07/13/21 07/13/21 07/13/21 07:20 07:21 10:07 Glucose POC Glucose 344 H* 323 H* 192 H 07/13/21 11:41 Glucose POC Glucose 126 H OUTPATIENT ANTIDIABETIC REGIMEN: * Lantus 7 units SQ QPM * Humulog sliding scale * HbA1c: 9.0% (06/30/21) -- unreliable in the setting of ESRD, now on HD ASSESSMENT: 07/13 * BSGs labile over past 24 hours, ranging 81-323 mg/dL * Given BSG stability for that and patient propensity for labile BSGs, hesitant to make any changes today * Hemodialysis yesterday * If BSGs remain poorly controlled, consider changing back to BID Lantus dosing 07/11 * BSGs have been stable past 24 hours. * Pt transitioned back to PM Lantus dosing today. * No further adjustment required at this time. 07/09 * Patient's BSGs yesterday were [phone] mg/dL. Fasting today was 63. * Patient received 23 units of insulin yesterday (7 units of basal and 16 units of bolus). * Had increased basal insulin yesterday to 7 units. Will decrease back to 6 units daily. Will hold off on transitioning due to hypoglycemia today. * Patient may require slightly more insulin on hemodialysis days. * Continue Novolog. 07/08 * Patient's BSGs yesterday were [phone] mg/dL and fasting today is 240 mg/dL. * Patient received 25 units of insulin yesterday (6 units of basal and 19 units of bolus). Plan to transition to once daily dosing this weekend. * Increase back to home dose of 7 units daily. * Continue Novolog as tightened CF/CR has led to hypoglycemia with patient. PLAN FOR INPATIENT GLYCEMIC CONTROL: * Basal insulin * Lantus 6 units SQ qPM * Bolus insulin * NovoLog per scale ACHS or Q6hrs while NPO * Goal Range: Low 110 mg/dL - High 160 mg/dL * Correction Factor: 55 mg/dL/unit * Nutritional / Prandial insulin per carb ratio of 1 unit per 18 grams CHO consumed
[2021-07-13] MEDS: LEVALBUTEROL HCL 1.25 MG/3 ML NEB NEB PRN (20:23)
[2021-07-13] MEDS: oxyCODONE HCL IR 5 MG TAB (IMMEDIATE RELEASE) PO PRN (21:20)
[2021-07-13] MEDS: ERTAPENEM SODIUM 500 MG in SYRINGE 0 ML IV SCH (21:21)
[2021-07-14] MEDS: INSULIN ASPART PER UNIT SC SCH ×5 (00:12→21:31)
[2021-07-14] MEDS: CHECK CLONIDINE PATCH PLACEMENT SCH ×3 (01:13→18:54)
[2021-07-14] MEDS: NITROGLYCERIN 2% OINTMENT 30GM TUBE EXT SCH ×2 (01:15→05:39)
[2021-07-14] MEDS: guaiFENesin/DEXTROM SYRUP 200MG/20MG 10ML UDC PO SCH ×4 (03:35→21:31)
[2021-07-14 06:11] LABS: Hemoglobin 7.8 g/dL (14.0-18.0); Mean Corpuscular Hemoglobin 29.2 pg (25-34); Mean Corpuscular Hgb Conc 32.5 g/dL (32-36); Mean Corpuscular Volume 89.9 fL (80-100); Mean Platelet Volume 10.6 fL (7.4-10.4); Platelet Count 294 K/uL (130-400); RDW Coefficient of Variation 13.5 % (11.5-14.5); RDW Standard Deviation 43.9 fL (36.4-46.3); Red Blood Count 2.67 M/uL (4.7-6.1)
[2021-07-14 07:26] LABS: BUN Creatinine Ratio 6.4 (10-20); Calcium 7.8 mg/dl (8.5-10.1); Creatinine Clr Calc Pharmacy 14.7 ml/min; Est GFR (African American) 12.5 ml/min; Est GFR (Non-African American) 10.8 ml/min; Phosphorus 6.3 mg/dl (2.5-4.9); Potassium 3.6 mmol/L (3.5-5.1)
[2021-07-14] MEDS ORDERED: SODIUM CHLORIDE 0.9% 1000ML 1,000 ML IV PRN (08:54)
[2021-07-14] MEDS: PANTOprazole 40 MG TAB PO SCH ×2 (09:14→21:31)
[2021-07-14] MEDS: ROSUVASTATIN CALCIUM 20 MG TAB PO SCH (09:14)
[2021-07-14] MEDS: GABAPENTIN 100 MG CAP PO SCH ×3 (09:14→22:19)
[2021-07-14] MEDS: levETIRAcetam 500 MG TAB PO SCH ×2 (09:14→21:31)
[2021-07-14] MEDS: METOCLOPRAMIDE HCL 10 MG TABLET PO SCH ×3 (09:14→22:20)
[2021-07-14] MEDS: amLODIPine BESYLATE 5 MG TAB PO SCH (09:15)
[2021-07-14] MEDS: SACCHAROMYCES BOULARDII 250 MG CAP PO SCH (09:15)
[2021-07-14] MEDS: FLUTICASONE/VILANTEROL 100/25MCG 14 PUFFS/INHALER INH SCH (09:15)
--- NOTE | 2021-07-14 10:09 | Nephrology Progress Note ---
Date of Service July 14, 2021 Assessment & Plan Admission and Anticipated Discharge Date Admission Date: June 30, 2021 Subjective [id number] Nephrology Progress Note Signed Patient:NIKHIL MARTINS Admit Date:06/30/21 MR#:[id number] Att Phy:Ellyn Lacy MD Acct ID:[id number] Ariadna Phy:Juan Lamb MD Date:1965 Fam Phy: Age:55 Location:2N Sex:M Room/Bed:N287-2 cc: ~ *NOTICE TO RECEIVING [employer]/AGENCY This information is strictly Confidential and protected under [place] law. [place] law prohibits you from making any further disclosure of this information unless further disclosure is expressly permitted by the written consent of the person to whom it pertains or is authorized by law. A general authorization for the release of medical or other information is not sufficient for this purpose. Hospital accepts no responsibility if the information is made available to any other person, INCLUDING THE PATIENT. Date of Service July 13, 2021 Assessment & Plan Admission and Anticipated Discharge Date Admission Date: June 30, 2021 Subjective Assessment & Plan (1) ESRD (end stage renal disease) on dialysis: Plan: Patient with oligoanuric acute kidney injury on advanced CKD 4 now ESRD. ischemic ATN in setting of nausea and vomiting for several days on underlying advanced diabetic nephropathy. Patient also found to have aspiration pneumonia and more recently pulmonary edema. Given history of metastatic cancer and of the multiple comorbidities, patient may not be a good candidate for dialysis. However he wishes to try and understands risks it may not go well. He finds these preferable to no intervention. consent is on chart. Plan trial of HD 4-6 wks then reassess tolerance and discuss permanent vasc access at that ty Dialysis later today for 3.5 hrs nd take 3.5 kilo off Feels breathing better after aggressive UF. He wishes to dialyze at [facility] d[facility] but is moving to [place] No PROSPER d/t cancer hx > monitor anemia frequently as he will be transfusion dependent. (2) Primary cancer of left lung metastatic to other site: Plan: Patient is status post resection and radiation to the ninth rib. not a candidate for further chemo per oncology. upcoming PET a few weeks after d/c; multiple mets noted on 07/03 CT He wants to have mediport placed for convenience. However there is no plan for further chemo to my knowledge. Will d/c AM labs and Do labs only in dialysis whatever is needed. Did talk to hospitalist about this. Subjective Still SOB but less and less edema Review of Systems Review of Systems: All other systems were reviewed and negative except as noted in HPI Physical Exam Physical Exam: General: frail elderly male, sitting comfortably in bed, not in acute distress, on [place] HEENT: EOMI, FANTASMA, MMM Chest: Permcath site clear, Fair breath sounds bilaterally with bilateral rales CVS: Regular rate and rhythm, normal heart sounds, no murmur Abdomen: Soft, non tender, not distended, normal bowel sounds Neuro: Awake, alert, oriented, conversing well, non focal Extremities: 1+ edema b/l--less Results & Data ([facility]) Vital Signs (Past 12 Hours) Vital Signs Temp Pulse Pulse Resp BP BP Pulse Ox 07/14/21 09:17 92 07/14/21 07:15 36.7 C 82 18 133/70 95 07/14/21 06:22 92 H 07/14/21 04:00 36.6 C 56 L 18 130/64 94 07/14/21 02:47 84 19 94 07/13/21 23:16 80 18 98 07/13/21 23:00 36.8 C 84 18 110/53 L 93
[2021-07-14] MEDS: oxyCODONE HCL IR 5 MG TAB (IMMEDIATE RELEASE) PO PRN ×2 (12:57→21:30)
--- NOTE | 2021-07-14 16:08 | Hospitalist Progress Note ---
Date of Service July 14, 2021 Assessment & Plan (1) Acute respiratory failure with hypoxia: Plan: Most likely due to pulmonary edema, aspiration pneumonitis -CTA chest 07/11-- bilateral pleural effusion, patchy opacities at bilateral bases, no PE -s/p 1 unit pRBC 07/11 at dialysis -Patient was on 2L of oxygen then required 15 L via oxymask then BIPAP now weaned down to 6L NC--> weaned further down to 4L NC today -Repeat CXR 07/12 again shows volume overload. Patient is supposed to be on a fluid restriction but with multiple beverages noted in his room previously -Met with billet grinder yesterday, fluid restriction was reviewed (2) Acute on chronic anemia: Plan: -likely due to chronic kidney disease, Hb 6.6 s/p 1 unit pRBC -No evidence of active bleed -will only repeat labwork at dialysis to avoid unnecessary lab draws (3) Multifocal pneumonia: Plan: -Patient recently finished 7 days of ertapenem previously -after episode of vomiting and concern for aspiration, he was placed on cefepime and flagyl 07/11. This was discontinued and he was placed back on Ertapenm 07/12. -Patient unable to get zosyn due to reported history of PCN allergy. -no cough, no fever, or leukocytosis. Procalcitonin neg x 3--> will discontinue further antibiotics and monitor off antibiotics (4) Acute kidney injury (IVAN) with acute tubular necrosis (ATN): Plan: -Acute kidney injury due to ischemic ATN in setting of nausea and vomiting for several days, now with progression to ESRD requiring dialysis. Started on Dialysis here -Management per Nephrology -OP dialysis has been set up per (5) Diabetic gastroparesis: Plan: tolerating a diet s/p Gastric stimulator Patient reports chronic nausea and constipation Patient counseled on small meals (6) Diabetes: Plan: Hypoglycemia this admission. Type I diabetes, glycemic pharmacy for management. (7) Primary cancer of left lung metastatic to other site: Plan: -Recently finished radiation treatments and is scheduling for a PET scan in 1 month. New metastatic disease on left lung seen. Results were shared with his oncologist and with patient. OP follow up with Oncology. -Patient requesting a port be placed to reduce blood draws. While here, will reduce lab draws to dialysis days (can be drawn at dialysis). Will hold off on port placement--will defer this to Oncology if further plans for chemotherapy (8) HTN (hypertension): Plan: chronic, stable, lisinopril on hold in setting of worsening renal failure. Continue amlodipine 10 mg daily and Catapres TTS weekly patch per home regimen (9) Chronic pain: Plan: Currently managed with gabapentin 200 mg p.o. 3 times daily which is a reduction from his home dose of 400 mg p.o. 3 times daily in setting of renal failure. Refusing APAP, has oxy PRN if needed and he is aware it is there if he needs it. will give a dose of iv dilaudid for exacerbation of pain episode. (10) Seizure disorder: Plan: Chronic, stable, no evidence of seizure activity. Continue Keppra per home regimen at reduced dose of 500 mg p.o. 3 times daily in setting of renal failure (11) DVT prophylaxis: Plan: No signs of active bleed. Increased risk for VTE with underlying cancer and prolonged hospitalization. Will start SQ heparin BID Full code Plan: Disposition-- PT evaluation reordered. Will need home oxygen assessment prior to discharge Admission and Anticipated Discharge Date Admission Date: June 30, 2021 Subjective Met with billet grinder yesterday, fluid restriction, dietary restrictions were reviewed Plan for dialysis later today No nausea today No fevers, no cough Physical Exam Physical Exam: Appears chronically ill, no acute distress, pleasant Respiratory: +crackles at bases, no wheezing/rhonchi/rales Cardiovascular: regular rate and rhythm, no murmurs/rubs/gallops Gastrointestinal (Abdomen): soft Musculoskeletal: no edema Neurologic: awake, alert, spontaneously moving extremities Results & Data Results & Data ([facility]) Vital Signs (Past 12 Hours) Vital Signs Temp Pulse Pulse Pulse Resp BP BP 07/14/21 15:40 78 111/69 07/14/21 15:20 78 109/71 07/14/21 15:00 81 120/77 07/14/21 14:50 81 124/67 07/14/21 14:38 36.6 C 83 07/14/21 14:28 36.7 C 78 18 110/63 07/14/21 11:07 36.4 C L 85 20 146/71 H 07/14/21 09:17 07/14/21 09:00 86 07/14/21 07:15 36.7 C 82 18 133/70 03/11/22 06:22 92 H Pulse Ox 07/14/21 15:40 07/14/21 15:20 07/14/21 15:00 07/14/21 14:50 07/14/21 14:38 07/14/21 14:28 94 07/14/21 11:07 95 07/14/21 09:17 92 07/14/21 09:00 07/14/21 07:15 95 07/14/21 06:22 Laboratory Results Short CBC 07/14/21 Range/Units 05:49 WBC 5.10 (4.8-10.8) K/uL Hgb 7.8 L (14.0-18.0) g/dL Hct 24.0 L (42-52) % Plt Count 294 (130-400) K/uL BMP 07/14/21 05:49 Sodium 136 Potassium 3.6 Chloride 100 Carbon Dioxide 25 BUN 35 H Creatinine 5.49 H* D Glucose 237 H Calcium 7.8 L Medications Administered Current Inpatient Medications Acetaminophen (Acetaminophen 325 Mg Tab) 650 mg PO Q4H PRN PRN Reason: Pain or Fever Stop: 07/30/21 23:01 Amlodipine Besylate (Amlodipine Besylate 5 Mg Tab) 10 mg PO DAILY [facility] Stop: 07/31/21 08:59 Last Admin: 07/14/21 09:15 Dose: 10 mg Documented by: Clonidine HCl (Clonidine Hcl 0.2 Mg/24 Hr Transderm Sys) 1 patch TD Fr@2200 [facility] Stop: 07/30/21 21:59 Last Admin: 07/07/21 21:17 Dose: 1 patch Documented by: Dextrose (Dextrose 50% 50 Ml Syringe) 25 - 50 ml IV UD PRN; Protocol PRN Reason: Hypoglycemia Protocol Stop: 07/30/21 20:44 Fluticasone/Vilanterol (Fluticasone/Vilanterol 100/25mcg 14 Puffs/Inhaler) 1 puffs INH DAILY [facility] Stop: 07/31/21 08:59 Last Admin: 07/14/21 09:15 Dose: 1 puffs Documented by: Gabapentin (Gabapentin 100 Mg Cap) 200 mg PO TID [facility] Stop: 07/31/21 08:59 Last Admin: 07/14/21 12:57 Dose: 200 mg Documented by: Glucagon (Glucagon For Inj 1 Mg Vial) 1 mg IM UD PRN; Protocol PRN Reason: Hypoglycemia Protocol Stop: 07/30/21 20:44 Glucagon (Glucagon For Inj 1 Mg Vial) 1 mg SQ UD PRN; Protocol PRN Reason: Hypoglycemia Protocol Stop: 07/30/21 23:01 Glucose (Glucose 40% Gel 15 Gm Tube) 15 - 30 gm PO UD PRN; Protocol PRN Reason: Hypoglycemia Protocol Stop: 07/30/21 20:44 Last Admin: 07/02/21 11:02 Dose: 15 gm Documented by: Glucose (Glucose 10 Tabs/Tube) 4 - 8 tabs PO UD PRN; Protocol PRN Reason: Hypoglycemia Protocol Stop: 07/30/21 20:44 Guaifenesin/Dextromethorphan (Guaifenesin/Dextrom Syrup 200mg/20mg 10ml Udc) 10 ml PO Q6H [facility] Stop: 08/09/21 09:29 Last Admin: 07/14/21 15:24 Dose: Not Given Documented by: Promethazine HCl 12.5 mg/ (Sodium Chloride) 50.5 mls @ 202 mls/hr IV Q6H PRN PRN Reason: Nausea And Vomiting Stop: 07/30/21 23:01 Last Infusion: 07/10/21 23:04 Dose: Infused Documented by: Dextrose/Sodium Chloride (D5w And 1/4nss) 1,000 mls @ 0 mls/hr IV .Q0M [facility] Stop: 08/03/21 07:59 Last Infusion: 07/04/21 08:04 Dose: Infused Documented by: Insulin Aspart (Insulin Aspart Per Unit) 0 units SC ACHS [facility] Stop: 08/03/21 11:29 Last Admin: 07/14/21 13:00 Dose: 6 units Documented by: Insulin Glargine (Insulin Glargine Solostar 100 Units/Ml 3 Ml Pen) 7 units SC HS [facility] Stop: 08/12/21 20:59 Levalbuterol HCl (Levalbuterol Hcl 1.25 Mg/3 Ml Neb) 1.25 mg NEB Q4H PRN; Protocol PRN Reason: Shortness Of Breath Or Wheezing Stop: 08/07/21 04:59 Last Admin: 07/13/21 20:23 Dose: 1.25 mg Documented by: Levetiracetam (Levetiracetam 500 Mg Tab) 500 mg PO BID [facility] Stop: 07/31/21 08:59 Last Admin: 07/14/21 09:14 Dose: 500 mg Documented by: Metoclopramide HCl (Metoclopramide Hcl 10 Mg Tablet) 10 mg PO TID [facility] Stop: 07/31/21 08:59 Last Admin: 07/14/21 12:57 Dose: 10 mg Documented by: Gilberto (Carbohydrates For Hypoglycemia ) 15 - 30 gm PO UD PRN PRN Reason: Hypoglycemia Treatment Stop: 07/30/21 20:44 Last Admin: 07/04/21 20:07 Dose: 30 gm Documented by: Gilberto (Remove Clonidine Patch) 1 ea N/A Fr@2159 [facility] Stop: 07/30/21 21:58 Last Admin: 07/07/21 21:18 Dose: 1 ea Documented by: Gilberto (Check Clonidine Patch Placement) 1 ea N/A QS [facility] Stop: 07/31/21 00:00 Last Admin: 07/14/21 09:15 Dose: 1 ea Documented by: Gilbreto Information (Pharmacy Glycemic Mgmt Consult) 1 ea N/A UD PRN PRN Reason: Consult Stop: 08/01/21 10:32 Oxycodone HCl (Oxycodone Hcl Ir 5 Mg Tab (Immediate Release)) 5 mg PO QID PRN PRN Reason: Severe Pain (Scale Score 7-10) Stop: 07/15/21 00:00 Last Admin: 07/14/21 12:57 Dose: 5 mg Documented by: Pantoprazole Sodium (Pantoprazole 40 Mg Tab) 40 mg PO BID [facility] Stop: 08/09/21 20:59 Last Admin: 07/14/21 09:14 Dose: 40 mg Documented by: Rosuvastatin Calcium (Rosuvastatin Calcium 20 Mg Tab) 20 mg PO DAILY [facility] Stop: 07/31/21 08:59 Last Admin: 07/14/21 09:14 Dose: 20 mg Documented by: Saccharomyces Boulardii (Saccharomyces Boulardii 250 Mg Cap) 250 mg PO DAILY [facility] Stop: 08/11/21 08:59 Last Admin: 07/14/21 09:15 Dose: 250 mg Documented by: (1) Diabetes Diabetes mellitus complication status: with other specified complication Diabetes mellitus type: type 1 Qualified Code(s): E10.69 - Type 1 diabetes mellitus with other specified complication (2) Chronic pain Chronic pain type: other chronic pain Qualified Code(s): G89.29 - Other chronic pain
[2021-07-14] MEDS ORDERED: INSULIN GLARGINE SOLOSTAR 100 UNITS/ML 3 ML PEN SC SCH (21:00)
[2021-07-14] MEDS: HEPARIN SOD 5,000 UNIT/0.5 ML VIAL SQ SCH (21:29)
[2021-07-15] MEDS: CHECK CLONIDINE PATCH PLACEMENT SCH ×3 (01:52→15:42)
[2021-07-15] MEDS: guaiFENesin/DEXTROM SYRUP 200MG/20MG 10ML UDC PO SCH ×4 (03:33→21:39)
[2021-07-15] MEDS: LEVALBUTEROL HCL 1.25 MG/3 ML NEB NEB PRN (07:28)
[2021-07-15] MEDS: CARBOHYDRATES FOR HYPOGLYCEMIA PO PRN ×2 (07:44→08:06)
[2021-07-15] MEDS: levETIRAcetam 500 MG TAB PO SCH ×2 (08:12→21:01)
[2021-07-15] MEDS: oxyCODONE HCL IR 5 MG TAB (IMMEDIATE RELEASE) PO PRN ×2 (08:12→15:41)
[2021-07-15] MEDS: ROSUVASTATIN CALCIUM 20 MG TAB PO SCH (08:13)
[2021-07-15] MEDS: PANTOprazole 40 MG TAB PO SCH ×2 (08:13→21:00)
[2021-07-15] MEDS: SACCHAROMYCES BOULARDII 250 MG CAP PO SCH (08:13)
[2021-07-15] MEDS: GABAPENTIN 100 MG CAP PO SCH ×3 (08:13→21:00)
[2021-07-15] MEDS: METOCLOPRAMIDE HCL 10 MG TABLET PO SCH ×3 (08:13→21:01)
[2021-07-15] MEDS: amLODIPine BESYLATE 5 MG TAB PO SCH (08:13)
[2021-07-15] MEDS: HEPARIN SOD 5,000 UNIT/0.5 ML VIAL SQ SCH ×2 (08:14→21:01)
[2021-07-15] MEDS: FLUTICASONE/VILANTEROL 100/25MCG 14 PUFFS/INHALER INH SCH (08:14)
[2021-07-15] MEDS: INSULIN ASPART PER UNIT SC SCH ×4 (08:35→21:14)
--- NOTE | 2021-07-15 11:03 | Pharmacy Report ---
Pharmacy Glycemic Short Note 2 - Date of Service July 15, 2021 - Glycemic Short BSG Results (Last 24 hours): 07/14/21 07/14/21 07/14/21 11:30 11:30 18:45 POC Glucose 310 H* 321 H* 152 H 07/14/21 07/15/21 07/15/21 20:04 07:38 07:40 POC Glucose 179 H 64 L* 61 L* 07/15/21 07/15/21 08:02 08:20 POC Glucose 54 L* 77 OUTPATIENT ANTIDIABETIC REGIMEN: * Lantus 7 units SQ QPM * Humulog sliding scale * HbA1c: 9.0% (06/30/21) -- unreliable in the setting of ESRD, now on HD ASSESSMENT: 07/15 * Blood sugars 54-310mg/dl over last 24 hours, with hypoglycemia this morning requiring two doses of 15g CHO to bring up to 77mg/dl, and pt feeling hypo * Change basal to BID dosing to help w/ hypoglycemia, pt seemed to do better 07/06-07/10 when dose was split * No further changes at this time 07/13 * BSGs labile over past 24 hours, ranging 81-323 mg/dL * Given BSG stability for that and patient propensity for labile BSGs, hesitant to make any changes today * Hemodialysis yesterday * If BSGs remain poorly controlled, consider changing back to BID Lantus dosing 07/11 * BSGs have been stable past 24 hours. * Pt transitioned back to PM Lantus dosing today. * No further adjustment required at this time. 07/09 * Patient's BSGs yesterday were [phone] mg/dL. Fasting today was 63. * Patient received 23 units of insulin yesterday (7 units of basal and 16 units of bolus). * Had increased basal insulin yesterday to 7 units. Will decrease back to 6 units daily. Will hold off on transitioning due to hypoglycemia today. * Patient may require slightly more insulin on hemodialysis days. * Continue Novolog. 07/08 * Patient's BSGs yesterday were [phone] mg/dL and fasting today is 240 mg/dL. * Patient received 25 units of insulin yesterday (6 units of basal and 19 units of bolus). Plan to transition to once daily dosing this weekend. * Increase back to home dose of 7 units daily. * Continue Novolog as tightened CF/CR has led to hypoglycemia with patient. PLAN FOR INPATIENT GLYCEMIC CONTROL: * Basal insulin - change to BID dosing * Lantus 3 units SQ BID * Bolus insulin * NovoLog per scale ACHS or Q6hrs while NPO * Goal Range: Low 120 mg/dL - High 160 mg/dL * Correction Factor: 55 mg/dL/unit * Nutritional / Prandial insulin per carb ratio of 1 unit per 18 grams CHO consumed
--- NOTE | 2021-07-15 14:49 | XRay Report ---
XR chest 1V portable HISTORY: worsening hypoxia COMPARISON: Chest 07/12/2021. FINDINGS: No pneumothorax. The heart remains mildly enlarged. Right jugular catheter terminates at th e distal SVC. Pulmonary edema and a small bilateral pleural effusions are again noted. Bibasilar hazy airspace opacities remain unchanged. IMPRESSION: No change in the pulmonary edema and small bilateral pleural effusions. Hazy bibasilar densities also persist. ACT 112: Negative or not required by law. Electronically signed by: Danilo Langley M.D. 07/15/2021 2:48 PM
[2021-07-15] MEDS ORDERED: SODIUM CHLORIDE 0.9% 1000ML 1,000 ML IV PRN (14:57)
--- NOTE | 2021-07-15 17:13 | Hospitalist Progress Note ---
Date of Service July 15, 2021 Assessment & Plan (1) Acute respiratory failure with hypoxia: Plan: Most likely due to pulmonary edema, aspiration pneumonitis -CTA chest 07/11-- bilateral pleural effusion, patchy opacities at bilateral bases, no PE -s/p 1 unit pRBC 07/11 at dialysis -Patient was on 2L of oxygen then required 15 L via oxymask then BIPAP now weaned down to 6L NC--> continue to wean as tolarted -Repeat CXR 07/12 again shows volume overload. Patient is supposed to be on a fluid restriction but with multiple beverages noted in his room previously -Met with relationship executive and fluid restriction was reviewed -will repeat CXR again on Saturday after dialysis -Will need 2 step prior to discharge to assess for home oxygen need (2) Acute on chronic anemia: Plan: -likely due to chronic kidney disease, Hb 6.6 s/p 1 unit pRBC -No evidence of active bleed -will only repeat labwork at dialysis to avoid unnecessary lab draws (3) Multifocal pneumonia: Plan: -Patient recently finished 7 days of ertapenem previously -after episode of vomiting and concern for aspiration, he was placed on cefepime and flagyl 07/11. This was discontinued and he was placed back on Ertapenm 07/12- 07/14 -Patient unable to get zosyn due to reported history of PCN allergy. -no cough, no fever, or leukocytosis. Procalcitonin neg x 3--> antibiotics were discontinued 07/14. He has remained stable off antibiotics (4) Acute kidney injury (IVAN) with acute tubular necrosis (ATN): Plan: -Acute kidney injury due to ischemic ATN in setting of nausea and vomiting for several days, now with progression to ESRD requiring dialysis. Started on Dialysis here -Management per Nephrology -OP dialysis has been set up per (5) Diabetic gastroparesis: Plan: tolerating a diet s/p Gastric stimulator Patient reports chronic nausea and constipation Patient counseled on small meals (6) Diabetes: Plan: Hypoglycemia this admission. Type I diabetes, glycemic pharmacy for management. (7) Primary cancer of left lung metastatic to other site: Plan: -Recently finished radiation treatments and is scheduling for a PET scan in 1 month. New metastatic disease on left lung seen. Results were shared with his oncologist and with patient. OP follow up with Oncology. -Patient requesting a port be placed to reduce blood draws. While here, will reduce lab draws to dialysis days (can be drawn at dialysis). Will hold off on port placement--will defer this to Oncology if further plans for chemotherapy (8) HTN (hypertension): Plan: chronic, stable, lisinopril on hold in setting of worsening renal failure. Continue amlodipine 10 mg daily and Catapres TTS weekly patch per home regimen (9) Chronic pain: Plan: Currently managed with gabapentin 200 mg p.o. 3 times daily which is a reduction from his home dose of 400 mg p.o. 3 times daily in setting of renal failure. Refusing APAP, has oxy PRN if needed and he is aware it is there if he needs it. will give a dose of iv dilaudid for exacerbation of pain episode. -also continued on oxycodone 10mg Q 6PRN (10) Seizure disorder: Plan: Chronic, stable, no evidence of seizure activity. Continue Keppra per home regimen at reduced dose of 500 mg p.o. 3 times daily in setting of renal failure (11) DVT prophylaxis: Plan: No signs of active bleed. Increased risk for VTE with underlying cancer and prolonged hospitalization. SQ heparin BID started 07/14 Full code Plan: Disposition-- PT re-evaluation reordered. Will need home oxygen assessment prior to discharge Admission and Anticipated Discharge Date Admission Date: June 30, 2021 Subjective Per RN today, patient found to have insulin pen in his room which was taken and sent to pharmacy Otherwise no events Yesterday went for dilaysis Physical Exam Physical Exam: appears older than stated age, no acute distress Respiratory: +crackles at bases, breathing comfortably on 6L NC, no wheezing Cardiovascular: regular rate and rhythm, no murmurs/rubs/gallops Gastrointestinal (Abdomen): soft, non tender, non distended Musculoskeletal: no edema Neurologic: awake, alert, spontaneously moving extremities Results & Data Results & Data ([facility]) Vital Signs (Past 12 Hours) Vital Signs Temp Pulse Pulse Pulse Resp BP BP 07/15/21 16:13 36.9 C 84 07/15/21 15:45 36.5 C 86 18 143/78 H 07/15/21 14:54 85 07/15/21 13:01 36.6 C 86 18 150/83 H 07/15/21 07:36 86 18 07/15/21 07:14 80 07/15/21 06:57 36.9 C 78 18 115/61 Pulse Ox 07/15/21 16:13 07/15/21 15:45 91 07/15/21 14:54 07/15/21 13:01 91 07/15/21 07:36 96 07/15/21 07:14 07/15/21 06:57 88 L Medications Administered Current Inpatient Medications Acetaminophen (Acetaminophen 325 Mg Tab) 650 mg PO Q4H PRN PRN Reason: Pain or Fever Stop: 07/30/21 23:01 Amlodipine Besylate (Amlodipine Besylate 5 Mg Tab) 10 mg PO DAILY [facility] Stop: 07/31/21 08:59 Last Admin: 07/15/21 08:13 Dose: 10 mg Documented by: Clonidine HCl (Clonidine Hcl 0.2 Mg/24 Hr Transderm Sys) 1 patch TD Fr@2200 [facility] Stop: 07/30/21 21:59 Last Admin: 07/14/21 22:20 Dose: 1 patch Documented by: Dextrose (Dextrose 50% 50 Ml Syringe) 25 - 50 ml IV UD PRN; Protocol PRN Reason: Hypoglycemia Protocol Stop: 07/30/21 20:44 Fluticasone/Vilanterol (Fluticasone/Vilanterol 100/25mcg 14 Puffs/Inhaler) 1 puffs INH DAILY [facility] Stop: 07/31/21 08:59 Last Admin: 07/15/21 08:14 Dose: 1 puffs Documented by: Gabapentin (Gabapentin 100 Mg Cap) 200 mg PO TID [facility] Stop: 07/31/21 08:59 Last Admin: 07/15/21 12:37 Dose: 200 mg Documented by: Glucagon (Glucagon For Inj 1 Mg Vial) 1 mg IM UD PRN; Protocol PRN Reason: Hypoglycemia Protocol Stop: 07/30/21 20:44 Glucagon (Glucagon For Inj 1 Mg Vial) 1 mg SQ UD PRN; Protocol PRN Reason: Hypoglycemia Protocol Stop: 07/30/21 23:01 Glucose (Glucose 40% Gel 15 Gm Tube) 15 - 30 gm PO UD PRN; Protocol PRN Reason: Hypoglycemia Protocol Stop: 07/30/21 20:44 Last Admin: 07/02/21 11:02 Dose: 15 gm Documented by: Glucose (Glucose 10 Tabs/Tube) 4 - 8 tabs PO UD PRN; Protocol PRN Reason: Hypoglycemia Protocol Stop: 07/30/21 20:44 Guaifenesin/Dextromethorphan (Guaifenesin/Dextrom Syrup 200mg/20mg 10ml Udc) 10 ml PO Q6H [facility] Stop: 08/09/21 09:29 Last Admin: 07/15/21 15:42 Dose: 10 ml Documented by: Heparin Sodium (Porcine) (Heparin Sod 5,000 Unit/0.5 Ml Vial) 5,000 units SQ Q12 [facility] Stop: 08/13/21 20:59 Last Admin: 07/15/21 08:14 Dose: 5,000 units Documented by: Promethazine HCl 12.5 mg/ (Sodium Chloride) 50.5 mls @ 202 mls/hr IV Q6H PRN PRN Reason: Nausea And Vomiting Stop: 07/30/21 23:01 Last Infusion: 07/10/21 23:04 Dose: Infused Documented by: Dextrose/Sodium Chloride (D5w And 1/4nss) 1,000 mls @ 0 mls/hr IV .Q0M [facility] Stop: 08/03/21 07:59 Last Infusion: 07/04/21 08:04 Dose: Infused Documented by: Sodium Chloride (Nss 1000ml) 1,000 mls @ 0 mls/hr IV .Q0M PRN PRN Reason: For Hemodialysis Use ONLY Stop: 07/15/21 20:56 Insulin Aspart (Insulin Aspart Per Unit) 0 units SC ACHS [facility] Stop: 08/03/21 11:29 Last Admin: 07/15/21 12:45 Dose: 6 units Documented by: Insulin Glargine (Insulin Glargine Solostar 100 Units/Ml 3 Ml Pen) 3 units SC BID [facility]; Protocol Stop: 08/14/21 20:59 Levalbuterol HCl (Levalbuterol Hcl 1.25 Mg/3 Ml Neb) 1.25 mg NEB Q4H PRN; Protocol PRN Reason: Shortness Of Breath Or Wheezing Stop: 08/07/21 04:59 Last Admin: 07/15/21 07:28 Dose: 1.25 mg Documented by: Levetiracetam (Levetiracetam 500 Mg Tab) 500 mg PO BID [facility] Stop: 07/31/21 08:59 Last Admin: 07/15/21 08:12 Dose: 500 mg Documented by: Metoclopramide HCl (Metoclopramide Hcl 10 Mg Tablet) 10 mg PO TID [facility] Stop: 07/31/21 08:59 Last Admin: 07/15/21 12:37 Dose: 10 mg Documented by: Gilberto (Carbohydrates For Hypoglycemia ) 15 - 30 gm PO UD PRN PRN Reason: Hypoglycemia Treatment Stop: 07/30/21 20:44 Last Admin: 07/15/21 08:06 Dose: 15 gm Documented by: Gilberto (Remove Clonidine Patch) 1 ea N/A Fr@2159 [facility] Stop: 07/30/21 21:58 Last Admin: 07/14/21 22:20 Dose: 1 ea Documented by: Gilberto (Check Clonidine Patch Placement) 1 ea N/A QS [facility] Stop: 07/31/21 00:00 Last Admin: 07/15/21 15:42 Dose: 1 ea Documented by: Gilberto Information (Pharmacy Glycemic Mgmt Consult) 1 ea N/A UD PRN PRN Reason: Consult Stop: 08/01/21 10:32 Oxycodone HCl (Oxycodone Hcl Ir 5 Mg Tab (Immediate Release)) 10 mg PO Q6 PRN PRN Reason: Pain Stop: 07/29/21 07:33 Last Admin: 07/15/21 15:41 Dose: 10 mg Documented by: Pantoprazole Sodium (Pantoprazole 40 Mg Tab) 40 mg PO BID [facility] Stop: 08/09/21 20:59 Last Admin: 07/15/21 08:13 Dose: 40 mg Documented by: Rosuvastatin Calcium (Rosuvastatin Calcium 20 Mg Tab) 20 mg PO DAILY [facility] Stop: 07/31/21 08:59 Last Admin: 07/15/21 08:13 Dose: 20 mg Documented by: Saccharomyces Boulardii (Saccharomyces Boulardii 250 Mg Cap) 250 mg PO DAILY [facility] Stop: 08/11/21 08:59 Last Admin: 07/15/21 08:13 Dose: 250 mg Documented by: (1) Diabetes Diabetes mellitus complication status: with other specified complication Diabetes mellitus type: type 1 Qualified Code(s): E10.69 - Type 1 diabetes mellitus with other specified complication (2) Chronic pain Chronic pain type: other chronic pain Qualified Code(s): G89.29 - Other chronic pain
--- NOTE | 2021-07-15 20:27 | Nephrology Progress Note ---
Date of Service July 15, 2021 Assessment & Plan (1) ESRD (end stage renal disease) on dialysis: Plan: Patient admitted with stage 2 oligoanuric acute kidney injury on advanced CKD 4 w/ baseline high risk for progression > now ESRD. ischemic ATN in setting of nausea and vomiting for several days on underlying advanced diabetic nephropathy. Patient also found to have aspiration pneumonia and more recently pulmonary edema. Creatinine on admission was 6.1 from a baseline of 3. Creatinine down to 5.7 after receiving IV fluids but worsened to 8s and w/ oligoanuria. Given history of metastatic cancer and of the multiple comorbidities, patient may not be a good candidate for dialysis. However he wishes to try and understands risks it may not go well after discussion w/ me; finds these prefereable to no intervention. consent is on chart. Plan trial of HD 4-6 wks then reassess tolerance and discuss permanent vasc access at that time -Renally dose antibiotics for GFR less than 15 mL/min -Monitor renal function with daily BMP -TDC placed 07/04; first HD same day -Last HD on 07/14- with 3.5 lit UF, had repeat HD today d/t worsened hypoxia/ongoign vascular congestion on XR >Next dialysis will tentatively be Saturday. Will get BMP tomorrow. . >>pls arrange dialysis under care of Dr Morales at [facility] after d/c -continue aggressive UF -no PROSPER d/t cancer hx > monitor anemia frequently as he will be transfusion dependent (2) Primary cancer of left lung metastatic to other site: Plan: Patient is status post resection and radiation to the ninth rib. not a candidate for further chemo per oncology. upcomin gPET a few weeks after d/c; multple mets noted on 07/03 CT -fact that he's not a candidate for further chemo means no mediport needed, at least not for now Admission and Anticipated Discharge Date Admission Date: June 30, 2021 Subjective higher 02 needs today from 4 > 6L despite aggressive UF 3.5L yesterday; leg pain, gastroparesis, tremors stable/acceptable to pt. seen on rounds 1415 Review of Systems Review of Systems: All systems reviewed & are unremarkable except as noted in Subjective Physical Exam Constitutional: well nourished, + ill appearing, + frail appearing and coop erative; no acute distress Eyes: EOM intact bilaterally ENMT: Ears: no external ear abnormality Nose: no external nose abnormality Mouth: + dry oral mucous membranes Neck: no nuchal rigidity Respiratory: normal respiratory effort Auscultation: + diminished lung sounds Cardiovascular: Rate/Rhythm: regular rate and regular rhythm Extremities: + edema (less today) Gastrointestinal (Abdomen): Inspection/Auscultation: normal bowel sounds Percussion/Palpation: abdomen soft; abdomen nontender Musculoskeletal: Extremities: strength 5/5 throughout Skin: no rashes, warm and dry Neurologic: a& 0 x 3, villarreal, fluent speech, mild tremor Results & Data ([facility]) Vital Signs (Past 12 Hours) Vital Signs Temp Pulse Pulse Pulse Resp BP BP 07/15/21 19:06 80 134/77 07/15/21 18:40 78 117/75 07/15/21 18:20 78 143/85 H 07/15/21 18:00 79 138/83 07/15/21 17:40 79 139/81 07/15/21 17:20 81 137/83 07/15/21 17:00 81 140/80 07/15/21 16:40 83 130/81 07/15/21 16:20 85 116/75 07/15/21 16:13 36.9 C 84 07/15/21 15:45 36.5 C 86 18 143/78 H 07/15/21 14:54 85 07/15/21 13:01 36.6 C 86 18 150/83 H Pulse Ox 07/15/21 19:06 07/15/21 18:40 07/15/21 18:20 07/15/21 18:00 07/15/21 17:40 07/15/21 17:20 07/15/21 17:00 07/15/21 16:40 07/15/21 16:20 07/15/21 16:13 07/15/21 15:45 91 07/15/21 14:54 07/15/21 13:01 91 Laboratory Results 07/14/21 05:49 07/14/21 05:49
[2021-07-15] MEDS: INSULIN GLARGINE SOLOSTAR 100 UNITS/ML 3 ML PEN SC SCH (21:19)
[2021-07-16] MEDS: CHECK CLONIDINE PATCH PLACEMENT SCH ×4 (01:11→23:04)
[2021-07-16] MEDS: guaiFENesin/DEXTROM SYRUP 200MG/20MG 10ML UDC PO SCH ×4 (03:45→20:07)
[2021-07-16] MEDS: PANTOprazole 40 MG TAB PO SCH ×2 (08:33→20:07)
[2021-07-16] MEDS: amLODIPine BESYLATE 5 MG TAB PO SCH (08:33)
[2021-07-16] MEDS: ROSUVASTATIN CALCIUM 20 MG TAB PO SCH (08:33)
[2021-07-16] MEDS: HEPARIN SOD 5,000 UNIT/0.5 ML VIAL SQ SCH ×2 (08:33→20:07)
[2021-07-16] MEDS: GABAPENTIN 100 MG CAP PO SCH ×3 (08:33→20:06)
[2021-07-16] MEDS: levETIRAcetam 500 MG TAB PO SCH ×2 (08:33→20:06)
[2021-07-16] MEDS: INSULIN GLARGINE SOLOSTAR 100 UNITS/ML 3 ML PEN SC SCH ×2 (08:35→20:08)
[2021-07-16] MEDS: METOCLOPRAMIDE HCL 10 MG TABLET PO SCH ×3 (08:35→20:07)
[2021-07-16] MEDS: FLUTICASONE/VILANTEROL 100/25MCG 14 PUFFS/INHALER INH SCH (08:35)
[2021-07-16] MEDS: SACCHAROMYCES BOULARDII 250 MG CAP PO SCH (08:35)
[2021-07-16] MEDS: INSULIN ASPART PER UNIT SC SCH ×4 (08:46→20:07)
--- NOTE | 2021-07-16 14:36 | Hospitalist Progress Note ---
Date of Service July 16, 2021 Assessment & Plan (1) Acute respiratory failure with hypoxia: Plan: Most likely due to pulmonary edema, aspiration pneumonitis -CTA chest 07/11-- bilateral pleural effusion, patchy opacities at bilateral bases, no PE -s/p 1 unit pRBC 07/11 at dialysis -Patient was on 2L of oxygen then required 15 L via oxymask then BIPAP now weaned down to 6L NC--> continue to wean as tolarted -Repeat CXR 07/12 again shows volume overload. -Repeat CXR 07/15- again shows volume overload (unchanged per radiology read, but appears to me to be improved) -Will order 2 Step for tomorrow (2) Acute on chronic anemia: Plan: -likely due to chronic kidney disease, Hb 6.6 s/p 1 unit pRBC -No evidence of active bleed -will repeat labwork tomorrow at dialysis (3) Multifocal pneumonia: Plan: -Patient recently finished 7 days of ertapenem previously -after episode of vomiting and concern for aspiration, he was placed on cefepime and flagyl 07/11. This was discontinued and he was placed back on Ertapenm 07/12- 07/14 -Patient unable to get zosyn due to reported history of PCN allergy. -no cough, no fever, or leukocytosis. Procalcitonin neg x 3--> antibiotics were discontinued 07/14. He has remained stable off antibiotics (4) Acute kidney injury (IVAN) with acute tubular necrosis (ATN): Plan: -Acute kidney injury due to ischemic ATN in setting of nausea and vomiting for several days, now with progression to ESRD requiring dialysis. Started on Dialysis here -Management per Nephrology -OP dialysis has been set up per (5) Diabetic gastroparesis: Plan: s/p Gastric stimulator Patient reports chronic nausea and constipation Patient counseled on small meals already on promotility agents (6) Diabetes: Plan: Hypoglycemia this admission. Type I diabetes, glycemic pharmacy for management. (7) Primary cancer of left lung metastatic to other site: Plan: -Recently finished radiation treatments and is scheduling for a PET scan in 1 month. New metastatic disease on left lung seen. Results were shared with his oncologist and with patient. OP follow up with Oncology. -Patient requesting a port be placed to reduce blood draws. While here, will reduce lab draws to dialysis days (can be drawn at dialysis). Will hold off on port placement--will defer this to Oncology if further plans for chemotherapy (8) HTN (hypertension): Plan: chronic, stable, lisinopril on hold in setting of worsening renal failure. Continue amlodipine 10 mg daily and Catapres TTS weekly patch per home regimen (9) Chronic pain: Plan: Currently managed with gabapentin 200 mg p.o. 3 times daily which is a reduction from his home dose of 400 mg p.o. 3 times daily in setting of renal failure. Refusing APAP, has oxy PRN if needed and he is aware it is there if he needs it. will give a dose of iv dilaudid for exacerbation of pain episode. -also continued on oxycodone 10mg Q 6PRN (10) Seizure disorder: Plan: Chronic, stable, no evidence of seizure activity. Continue Keppra per home regimen at reduced dose of 500 mg p.o. 3 times daily in setting of renal failure (11) DVT prophylaxis: Plan: No signs of active bleed. Increased risk for VTE with underlying cancer and prolonged hospitalization. SQ heparin BID started 07/14 Full code Plan: Disposition--2 step ordered. Admission and Anticipated Discharge Date Admission Date: June 30, 2021 Anticipated date of discharge: 07/17/21 Subjective Oxygen weaned down to 4L NC Patient feels very tired. "I feel like I've been run over by a truck" Ate poorly, felt nauseous throughout the day but no vomiting. Physical Exam Physical Exam: Laying in bed watching movies, appears very fatigued Respiratory: crackles at lung bases, no wheezing/rhonchi/rales Cardiovascular: regular rate and rhythm, no murmurs/rubs/gallops Gastrointestinal (Abdomen): soft, non tender, non distended Musculoskeletal: No edema Neurologic: awake, alert, spontaneously moving extremities Results & Data Results & Data ([facility]) Vital Signs (Past 12 Hours) Vital Signs Temp Pulse Pulse Pulse Resp BP Pulse Ox 07/16/21 11:27 37.1 C 85 115/57 L 91 07/16/21 07:01 82 07/16/21 06:48 36.8 C 85 20 139/77 90 07/16/21 04:00 36.4 C L 68 18 119/75 94 Medications Administered Current Inpatient Medications Acetaminophen (Acetaminophen 325 Mg Tab) 650 mg PO Q4H PRN PRN Reason: Pain or Fever Stop: 07/30/21 23:01 Amlodipine Besylate (Amlodipine Besylate 5 Mg Tab) 10 mg PO DAILY [facility] Stop: 07/31/21 08:59 Last Admin: 07/16/21 08:33 Dose: 10 mg Documented by: Clonidine HCl (Clonidine Hcl 0.2 Mg/24 Hr Transderm Sys) 1 patch TD Fr@2200 [facility] Stop: 07/30/21 21:59 Last Admin: 07/14/21 22:20 Dose: 1 patch Documented by: Dextrose (Dextrose 50% 50 Ml Syringe) 25 - 50 ml IV UD PRN; Protocol PRN Reason: Hypoglycemia Protocol Stop: 07/30/21 20:44 Fluticasone/Vilanterol (Fluticasone/Vilanterol 100/25mcg 14 Puffs/Inhaler) 1 puffs INH DAILY [facility] Stop: 07/31/21 08:59 Last Admin: 07/16/21 08:35 Dose: 1 puffs Documented by: Gabapentin (Gabapentin 100 Mg Cap) 200 mg PO TID [facility] Stop: 07/31/21 08:59 Last Admin: 07/16/21 13:09 Dose: 200 mg Documented by: Glucagon (Glucagon For Inj 1 Mg Vial) 1 mg IM UD PRN; Protocol PRN Reason: Hypoglycemia Protocol Stop: 07/30/21 20:44 Glucagon (Glucagon For Inj 1 Mg Vial) 1 mg SQ UD PRN; Protocol PRN Reason: Hypoglycemia Protocol Stop: 07/30/21 23:01 Glucose (Glucose 40% Gel 15 Gm Tube) 15 - 30 gm PO UD PRN; Protocol PRN Reason: Hypoglycemia Protocol Stop: 07/30/21 20:44 Last Admin: 07/02/21 11:02 Dose: 15 gm Documented by: Glucose (Glucose 10 Tabs/Tube) 4 - 8 tabs PO UD PRN; Protocol PRN Reason: Hypoglycemia Protocol Stop: 07/30/21 20:44 Guaifenesin/Dextromethorphan (Guaifenesin/Dextrom Syrup 200mg/20mg 10ml Udc) 10 ml PO Q6H [facility] Stop: 08/09/21 09:29 Last Admin: 07/16/21 08:35 Dose: 10 ml Documented by: Heparin Sodium (Porcine) (Heparin Sod 5,000 Unit/0.5 Ml Vial) 5,000 units SQ Q12 [facility] Stop: 08/13/21 20:59 Last Admin: 07/16/21 08:33 Dose: 5,000 units Documented by: Promethazine HCl 12.5 mg/ (Sodium Chloride) 50.5 mls @ 202 mls/hr IV Q6H PRN PRN Reason: Nausea And Vomiting Stop: 07/30/21 23:01 Last Infusion: 07/10/21 23:04 Dose: Infused Documented by: Dextrose/Sodium Chloride (D5w And 1/4nss) 1,000 mls @ 0 mls/hr IV .Q0M [facility] Stop: 08/03/21 07:59 Last Infusion: 07/04/21 08:04 Dose: Infused Documented by: Insulin Aspart (Insulin Aspart Per Unit) 0 units SC ACHS [facility] Stop: 08/03/21 11:29 Last Admin: 07/16/21 13:13 Dose: 1 units Documented by: Insulin Glargine (Insulin Glargine Solostar 100 Units/Ml 3 Ml Pen) 3 units SC BID [facility]; Protocol Stop: 08/14/21 20:59 Last Admin: 07/16/21 08:35 Dose: 3 units Documented by: Levalbuterol HCl (Levalbuterol Hcl 1.25 Mg/3 Ml Neb) 1.25 mg NEB Q4H PRN; Protocol PRN Reason: Shortness Of Breath Or Wheezing Stop: 08/07/21 04:59 Last Admin: 07/15/21 07:28 Dose: 1.25 mg Documented by: Levetiracetam (Levetiracetam 500 Mg Tab) 500 mg PO BID [facility] Stop: 07/31/21 08:59 Last Admin: 07/16/21 08:33 Dose: 500 mg Documented by: Metoclopramide HCl (Metoclopramide Hcl 10 Mg Tablet) 10 mg PO TID [facility] Stop: 07/31/21 08:59 Last Admin: 07/16/21 13:10 Dose: 10 mg Documented by: Miscellaneous (Carbohydrates For Hypoglycemia ) 15 - 30 gm PO UD PRN PRN Reason: Hypoglycemia Treatment Stop: 07/30/21 20:44 Last Admin: 07/15/21 08:06 Dose: 15 gm Documented by: Miscellaneous (Remove Clonidine Patch) 1 ea N/A Fr@9572 [facility] Stop: 07/30/21 21:58 Last Admin: 07/14/21 22:20 Dose: 1 ea Documented by: Miscellaneous (Check Clonidine Patch Placement) 1 ea N/A QS [facility] Stop: 07/31/21 00:00 Last Admin: 07/16/21 08:34 Dose: 1 ea Documented by: Miscellaneous Information (Pharmacy Glycemic Mgmt Consult) 1 ea N/A UD PRN PRN Reason: Consult Stop: 08/01/21 10:32 Oxycodone HCl (Oxycodone Hcl Ir 5 Mg Tab (Immediate Release)) 10 mg PO Q6 PRN PRN Reason: Pain Stop: 07/29/21 07:33 Last Admin: 07/15/21 15:41 Dose: 10 mg Documented by: Pantoprazole Sodium (Pantoprazole 40 Mg Tab) 40 mg PO BID [facility] Stop: 08/09/21 20:59 Last Admin: 07/16/21 08:33 Dose: 40 mg Documented by: Rosuvastatin Calcium (Rosuvastatin Calcium 20 Mg Tab) 20 mg PO DAILY [facility] Stop: 07/31/21 08:59 Last Admin: 07/16/21 08:33 Dose: 20 mg Documented by: Saccharomyces Boulardii (Saccharomyces Boulardii 250 Mg Cap) 250 mg PO DAILY [facility] Stop: 08/11/21 08:59 Last Admin: 07/16/21 08:35 Dose: 250 mg Documented by: (1) Diabetes Diabetes mellitus complication status: with other specified complication Diabetes mellitus type: type 1 Qualified Code(s): E10.69 - Type 1 diabetes mellitus with other specified complication (2) Chronic pain Chronic pain type: other chronic pain Qualified Code(s): G89.29 - Other chronic pain
--- NOTE | 2021-07-16 19:18 | CT Scan Report ---
CT chest diagnostic wo con CT DOSE: 445.07 mGy.cm CLINICAL HISTORY: 55 years-old Male with Clarify CXR findings. Acute shortness of breath TECHNIQUE: Multiaxial CT images of the chest were performed without contrast. A dose lowering techni que was utilized adhering to the principles of ALARA. COMPARISON: Chest radiograph 07/15/2021, CTA chest 07/11/2021, chest CT 07/03/2021, PET CT 02/08/2021 FINDINGS: Multinodular thyroid. Pathologic mediastinal, hilar and axillary chain adenopathy is redemo nstrated. 1.8 x 1.4 cm left axillary chain lymph node is stable. Pleural implant versus pathologic ly mph node on image 69 measures 4.3 x 2.7 cm. Subcarinal adenopathy measures up to 1.8 cm in short axis . The heart is moderately enlarged. Small pericardial effusion. Moderate coronary artery calcificatio ns. The lumen right IJ hemodialysis catheter distal tip terminates within the right atrium. Trace right and small left pleural effusions. There is unchanged left-sided pleural thickening. Right greater than left intralobular septal thickening with intermixed groundglass and consolidative opaci ties, progressively worsened from prior. Bronchial wall thickening with bibasilar mucous plugging. Pa tchy right greater than left bibasilar consolidation. Bibasilar consolidation has mildly improved. Ce ntral airways are patent. There are a few scattered solid pulmonary nodules again noted measuring up to 4 mm within the right lung apex. Postoperative changes of the upper abdomen redemonstrated. Mild generalized body wall edema. Destruct luz metastatic bone lesion of the lateral left ninth rib with pathologic fracture redemonstrated. No new or enlarging metastatic osseous lesions. IMPRESSION: 1. Cardiomegaly with progressively worsened right greater than left intralobular septal thickening wi th intermixed groundglass and consolidative opacities suggestive of asymmetric interstitial and alveo lar pulmonary edema. 2. Bibasilar consolidative densities may represent atelectasis versus an infectious or inflammatory p neumonitis, mildly improved from 07/11/2021. 3. Trace right with small left pleural effusion. 4. Unchanged left-sided pleural implants with metastatic lymphadenopathy. 5. Metastatic osseous lesion of the lateral left ninth rib with pathologic fracture is unchanged. ACT 112: Negative or not required by law. Electronically signed by: Oumar Metzger M.D. 07/16/2021 7:17 PM
[2021-07-16] MEDS: oxyCODONE HCL IR 5 MG TAB (IMMEDIATE RELEASE) PO PRN (20:04)
[2021-07-16] MEDS: PROMETHAZINE HCL 12.5 MG in SODIUM CHLORIDE 0.9% 50 ML IV PRN (21:12)
[2021-07-17] MEDS: guaiFENesin/DEXTROM SYRUP 200MG/20MG 10ML UDC PO SCH ×4 (02:57→21:39)
[2021-07-17 06:23] LABS: Hematocrit (blood only) 24.3 % (42-52); Hemoglobin 7.8 g/dL (14.0-18.0); Mean Corpuscular Hemoglobin 29.2 pg (25-34); Mean Corpuscular Hgb Conc 32.1 g/dL (32-36); Mean Platelet Volume 9.9 fL (7.4-10.4); Platelet Count 301 K/uL (130-400); RDW Coefficient of Variation 13.5 % (11.5-14.5); RDW Standard Deviation 44.4 fL (36.4-46.3); Red Blood Count 2.67 M/uL (4.7-6.1); White Blood Count 4.75 K/uL (4.8-10.8)
[2021-07-17 06:55] LABS: Albumin Globulin Ratio 0.9 (0.9-2); Albumin Level 2.7 gm/dl (3.4-5.0); Bilirubin,Total 0.2 mg/dl (0.2-1.0); Calcium 8.2 mg/dl (8.5-10.1); Creatinine Clr Calc Pharmacy 19.2 ml/min; Est GFR (African American) 15.3 ml/min; Est GFR (Non-African American) 13.2 ml/min; Potassium 4.1 mmol/L (3.5-5.1); Total Protein 5.7 gm/dl (6.0-8.3)
[2021-07-17] MEDS ORDERED: HEPARIN SOD (PORCINE) 1000 UNIT/ML IV ONE (07:54)
[2021-07-17] MEDS ORDERED: SODIUM CHLORIDE 0.9% 1000ML 1,000 ML IV PRN (07:54)
[2021-07-17] MEDS: INSULIN ASPART PER UNIT SC SCH ×4 (08:07→21:37)
[2021-07-17] MEDS: FLUTICASONE/VILANTEROL 100/25MCG 14 PUFFS/INHALER INH SCH (08:11)
[2021-07-17] MEDS: CHECK CLONIDINE PATCH PLACEMENT SCH ×2 (08:11→15:54)
[2021-07-17] MEDS: SACCHAROMYCES BOULARDII 250 MG CAP PO SCH (08:12)
[2021-07-17] MEDS: ROSUVASTATIN CALCIUM 20 MG TAB PO SCH (08:12)
[2021-07-17] MEDS: amLODIPine BESYLATE 5 MG TAB PO SCH (08:12)
[2021-07-17] MEDS: METOCLOPRAMIDE HCL 10 MG TABLET PO SCH ×3 (08:12→21:39)
[2021-07-17] MEDS: levETIRAcetam 500 MG TAB PO SCH ×2 (08:13→21:38)
[2021-07-17] MEDS: HEPARIN SOD 5,000 UNIT/0.5 ML VIAL SQ SCH (08:13)
[2021-07-17] MEDS: INSULIN GLARGINE SOLOSTAR 100 UNITS/ML 3 ML PEN SC SCH ×2 (08:13→21:38)
[2021-07-17] MEDS: PANTOprazole 40 MG TAB PO SCH ×2 (08:13→21:39)
[2021-07-17] MEDS: GABAPENTIN 100 MG CAP PO SCH ×3 (08:13→21:37)
--- NOTE | 2021-07-17 10:00 | Nephrology Progress Note ---
Date of Service July 17, 2021 Assessment & Plan (1) ESRD (end stage renal disease) on dialysis: Plan: Patient admitted with stage 2 oligoanuric acute kidney injury on advanced CKD 4 w/ baseline high risk for progression > now ESRD. ischemic ATN in setting of nausea and vomiting for several days on underlying advanced diabetic nephropathy. Patient also found to have aspiration pneumonia and more recently pulmonary edema. Creatinine on admission was 6.1 from a baseline of 3. Creatinine down to 5.7 after receiving IV fluids but worsened to 8s and w/ oligoanuria. Given history of metastatic cancer and of the multiple comorbidities, patient may not be a good candidate for dialysis. However he wishes to try and understands risks it may not go well after discussion w/ me; finds these prefereable to no intervention. consent is on chart. Plan trial of HD 4-6 wks then reassess tolerance and discuss permanent vasc access at that time -Renally dose antibiotics for GFR less than 15 mL/min -Monitor renal function with daily BMP -TDC placed 07/04; first HD same day -Last HD on 07/15 w/ 3L UF; one before that is 07/14 with 3.5 lit UF >for HD today goal UF 4L >>pls arrange dialysis under care of Dr Lord at [facility] after d/c; this is a 3 day weekly unit > he may need extra txs as OP and we have means to arrange that -continue aggressive UF, frequent txs fro now -no PROSPER d/t cancer hx > monitor anemia frequently as he is transfusion dependent (2) Primary cancer of left lung metastatic to other site: Plan: Patient is status post resection and radiation to the ninth rib. not a candidate for further chemo per oncology. upcomin gPET a few weeks after d/c; multple mets noted on 07/03 CT -fact that he's not a candidate for further chemo means no mediport needed, at least not for now (3) Pulmonary edema: Plan: >>he is having excessive wt gain/ plm edema and question remains why >> agree w/ pulm eval Admission and Anticipated Discharge Date Admission Date: June 30, 2021 Subjective c/o ongoing cough productive of yellow sputum; c/o "hurt all over;" using CPAP hs Review of Systems Review of Systems: All systems reviewed & are unremarkable except as noted in Subjective Physical Exam Constitutional: well nourished, + ill appearing, + frail appearing and cooperative; no acute distress lying flat, NAD Eyes: EOM intact bilaterally ENMT: Ears: no external ear abnormality Nose: no external nose abnormality Mouth: + dry oral mucous membranes Neck: no nuchal rigidity Respiratory: normal respiratory effort Auscultation: + diminished lung sounds Cardiovascular: Rate/Rhythm: regular rate and regular rhythm Extremities: + edema (trace) Gastrointestinal (Abdomen): Inspection/Auscultation: normal bowel sounds Percussion/Palpation: abdomen soft; abdomen nontender Musculoskeletal: Extremities: strength 5/5 throughout Skin: no rashes, warm and dry Neurologic: villarreal, fluent speech, no tremor Psychiatric: Orientation: oriented x 3 Results & Data ([facility]) Vital Signs (Past 12 Hours) Vital Signs Temp Pulse Pulse Resp BP BP Pulse Ox 07/17/21 09:18 36.9 C 81 07/17/21 08:07 37.1 C 65 18 134/77 96 07/17/21 07:16 78 07/17/21 03:38 37.3 C 76 20 144/85 H 94 07/16/21 23:47 72 25 H 96 07/16/21 23:33 82 07/16/21 23:13 36.3 C L 73 18 107/65 93 Laboratory Results 07/17/21 06:05 07/17/21 06:05
[2021-07-17] MEDS: HEPARIN SOD (PORCINE) 1000 UNIT/ML IV SCH (14:10)
--- NOTE | 2021-07-17 14:27 | Pharmacy Report ---
Pharmacy Glycemic Short Note 2 - Date of Service July 17, 2021 - Glycemic Short BSG Results (Last 24 hours): 07/16/21 07/16/21 07/17/21 16:26 19:54 06:05 Glucose 161 H POC Glucose 105 H 171 H 07/17/21 07/17/21 07/17/21 07:25 13:40 13:41 Glucose POC Glucose 168 H 299 H 174 H OUTPATIENT ANTIDIABETIC REGIMEN: * Lantus 7 units SQ QPM * Humulog sliding scale * HbA1c: 9.0% (06/30/21) -- unreliable in the setting of ESRD, now on HD ASSESSMENT: 07/17/21 * Patient's BSGs yesterday were [phone] mg/dL and fasting today is 168 mg/dL. * Patient's BSGs starting to stable with initiation of twice daily Lantus. * Continue current insulin parameters. 07/15 * Blood sugars 54-310mg/dl over last 24 hours, with hypoglycemia this morning requiring two doses of 15g CHO to bring up to 77mg/dl, and pt feeling hypo * Change basal to BID dosing to help w/ hypoglycemia, pt seemed to do better 07/06-07/10 when dose was split * No further changes at this time 07/13 * BSGs labile over past 24 hours, ranging 81-323 mg/dL * Given BSG stability for that and patient propensity for labile BSGs, hesitant to make any changes today * Hemodialysis yesterday * If BSGs remain poorly controlled, consider changing back to BID Lantus dosing 07/11 * BSGs have been stable past 24 hours. * Pt transitioned back to PM Lantus dosing today. * No further adjustment required at this time. 07/09 * Patient's BSGs yesterday were [phone] mg/dL. Fasting today was 63. * Patient received 23 units of insulin yesterday (7 units of basal and 16 units of bolus). * Had increased basal insulin yesterday to 7 units. Will decrease back to 6 units daily. Will hold off on transitioning due to hypoglycemia today. * Patient may require slightly more insulin on hemodialysis days. * Continue Novolog. 07/08 * Patient's BSGs yesterday were [phone] mg/dL and fasting today is 240 mg/dL. * Patient received 25 units of insulin yesterday (6 units of basal and 19 units of bolus). Plan to transition to once daily dosing this weekend. * Increase back to home dose of 7 units daily. * Continue Novolog as tightened CF/CR has led to hypoglycemia with patient. PLAN FOR INPATIENT GLYCEMIC CONTROL: * Basal insulin * Lantus 3 units SQ BID * Bolus insulin * NovoLog per scale ACHS or Q6hrs while NPO * Goal Range: Low 120 mg/dL - High 160 mg/dL * Correction Factor: 55 mg/dL/unit * Nutritional / Prandial insulin per carb ratio of 1 unit per 18 grams CHO consumed
--- NOTE | 2021-07-17 14:38 | Pulmonary Consultation ---
Date of Consultation July 17, 2021 Assessment & Plan (1) Acute respiratory failure with hypoxia: Possible recovering pna and/or volume overload. Difficult to rule out inflammatory lung condition or lymphangitic spread of malignancy. Given anemia, would like to rule out DAH with bronch. Will also send bronch fluid for cultures. NPO after midnight. Hold ac. D/w bedside nurse. (2) Multifocal pneumonia: Treated by primary team with ertapenem. (3) Pulmonary edema: Currently managed by dialysis. (4) ESRD (end stage renal disease) on dialysis: Defer to renal team. On HD. History of Present Illness Reason for Consultation: "Worsening groundglass opacities" Attending Physician: Ellyn Lacy MD History of Present Illness 5-year-old male with a past medical history of end-stage renal disease on hemodialysis, metastatic non-small cell lung cancer, diabetes mellitus, ulcerative colitis, gastroparesis status post gastric pacemaker and hypertension really presented to the hospital 06/30/2021 due to abdominal pain and hematemesis. Patient had radiation to his left ninth rib in 2020 due to a lytic lesion discovered. Remained in the hospital due to numerous complications including concerns for GI bleeding, worsening renal failure and multifocal pneumonia. He was treated with 7 days of ertapenem due to concerns of aspiration. Culture most recently obtained on 07/14 with heavy normal miesha. Sputum culture from 07/02 with light normal miesha. Sputum culture from 02/23/2021 with contamination. Chest completed x3 during this hospitalization. Increase in size of multiple pleural implants was seen in the left hemithorax and mediastinal lymphadenopathy since his PET/CT in February [address] CT from 07/03/2021 These findings were suggestive of metastatic disease. His recent noncontrast CT from 07/16/2021 reviewed with cardiomegaly had progressively worsened right greater than left intralobular septal thickening and groundglass opacities. Bibasilar consolidative changes noted which have mildly improved compared to the CT from 07/11. Patient continues with shortness of breath, cough and fatigue. Notes hemoptysis 2 weeks earlier, but resolved. Allergies Allergy/AdvReac Type Severity Reaction Status Date / Time bee venom protein (honey bee) Allergy Mild SWELLING Verified 06/30/21 23:19 AT SITE, SOB Penicillins Allergy Unknown "SINCE Verified 06/30/21 23:19 "-Amoxicillin cat dander Allergy Unknown Verified 06/30/21 23:19 Home Medications Medication Instructions Recorded Confirmed Type albuterol sulfate 90 mcg/actuation 2 puff INHALATION Q4H PRN 05/05/18 06/30/21 History aerosol inhaler (Ventolin HFA) epinephrine 0.3 mg/0.3 mL 0.3 mg IM Q3H PRN 05/05/18 06/30/21 History injection, auto-injector (EpiPen) fluticasone 250 mcg-salmeterol 50 1 inh INHALATION BID 01/24/20 06/30/21 History mcg/dose blistr powdr for inhalation (Wixela Inhub) amlodipine 5 mg tablet (Norvasc) 10 mg PO QAM tab 04/26/21 06/30/21 History blood sugar diagnostic 04/26/21 06/30/21 History flash glucose sensor (FreeStyle 04/26/21 06/30/21 History Amparo 14 Day Sensor) gabapentin 400 mg capsule 400 mg PO TID 04/26/21 06/30/21 History glucagon 1 mg solution for 1 mg IM ONCE PRN ea 04/26/21 06/30/21 History injection insulin glargine 100 unit/mL (3 7 unit SUBCUT QPM ml 04/26/21 06/30/21 History mL) subcutaneous pen (Lantus Solostar U-100 Insulin) insulin lispro 100 unit/mL 1 sliding scale dose SUBCUT 04/26/21 06/30/21 History subcutaneous solution (Humalog USEASDIRECTD U-100 Insulin) levetiracetam 750 mg tablet 750 mg PO BID 04/26/21 06/30/21 History (Keppra) lisinopril 40 mg tablet 20 mg PO DAILY 04/26/21 06/30/21 History meclizine 12.5 mg tablet 12.5 mg PO TID PRN 04/26/21 06/30/21 History metoclopramide HCl 10 mg tablet 10 mg PO TID tab 04/26/21 06/30/21 History (Reglan) omeprazole 40 mg capsule,delayed 40 mg PO DAILY 04/26/21 06/30/21 History release ondansetron HCl 4 mg tablet 4 mg PO Q8H PRN 04/26/21 06/30/21 History (Zofran) oxycodone 10 mg tablet 10 mg PO Q4H PRN 04/26/21 06/30/21 History rosuvastatin 20 mg tablet 20 mg PO DAILY 04/26/21 06/30/21 History amlodipine 10 mg tablet 10 mg PO DAILY 06/30/21 06/30/21 History clonidine 0.2 mg/24 hr weekly 0.2 mg TRANSDERMAL WK 06/30/21 06/30/21 History transdermal patch Patient History Medical History (Updated 07/11/21 @ 16:16 by Evan Buchanan MD) Abdominal pain Abnormal finding on CT scan Acute dyspnea Acute hyponatremia Acute on chronic renal failure IVAN (acute kidney injury) Anemia Asymptomatic hypertensive urgency Chest pain No current chest pain...related to reflux per patient Chronic pain CKD (chronic kidney disease) stage 4, GFR 15-29 ml/min baseline creatinine 3 in fall 2020 w/ 1 gm proteinuria COPD (chronic obstructive pulmonary disease) Dehydration Diabetes mellitus type 2, uncontrolled Diabetic autonomic neuropathy Diabetic peripheral neuropathy Discharge planning issues DVT prophylaxis Elevated d-dimer Esophagitis ESRD (end stage renal disease) on dialysis Gastroparesis "s/p gastric stimulator" History of Crohn's disease HTN (hypertension) Hyperglycemia Hypertension Hypertensive crisis Hypoglycemia Hypomagnesemia Hypothermia Intractable nausea and vomiting Lab test negative for COVID-19 virus [place] grade C esophagitis 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 One 1 mm polyp in the ascending colon resected. One benign appearing 1 mm polyp in the rectum resected. Internal hemorrhoids; Dr. Demarco" H/O esophagogastroduodenoscopy "01/26/2015- [place] Grade B reflux esophagitis, gastritis; Dr. Major" History of cholecystectomy History of tonsillectomy and adenoidectomy Hx of total knee arthroplasty S/P lobectomy of lung "left upper lobectomy for adenoCa" On 08/05/16 16:30 Edie Mcfarland wrote "L side @ [facility] Lo 05/25/16" Status post insertion of intrathecal pump explanted Family History Mother Diabetes Dementia Father Hypertension Diabetes Sister Crohn's disease Other Family history non-contributory Social History Smoking Status: Former smoker Tobacco Type: Cigarettes Second Hand Exposure: No; Hx Alcohol Use: No Hx Substance Use: No Preferred Language: [place] Communication Ability: Effective Visual Impairment: No Limitations Speech And Language Assistant Required: No Beliefs That Will Affect Care: Anabaptist Anabaptist Beliefs: Latter-Day marital status: Single Current Living Situation: Alone Current Living Situation Comment: has family close by and available to assist current occupational status: disabled How many Children do You have: 5 Feels Safe at Home: Yes Safety Concerns: Feels Safe At This Time Diet Comment: Carb counting caffeine: No Physical Activity Frequency: Does not Exercise Physical Activity Frequency Comment: walks when able Assistive Devices: Brace/Splint/Immobilizer, Oxygen - Continuous and Walker Review of Systems Review of Systems: All systems reviewed & are unremarkable except as noted in HPI & below Physical Exam Constitutional: Chronically ill appearing and weak Eyes: PERRL, conjunctivae normal, anicteric sclerae ENMT: external ear and nose normal, oropharynx normal Respiratory: Diffuse crackles and rhonchi. No accessory muscle use Cardiovascular: RRR, no murmur, no edema Gastrointestinal (Abdomen): normal bowel sounds, soft, nontender, no hepatosplenomegaly Musculoskeletal: no cyanosis or clubbing, extremities motor strength 5/5 Neurologic: No focal deficits Psychiatric: A+Ox3, euthymic affect Results & Data Results & Data ([facility]) Vital Signs (Past 12 Hours) Vital Signs Temp Pulse Pulse Resp BP BP BP 07/17/21 13:00 73 115/68 07/17/21 12:40 72 122/68 07/17/21 12:20 73 112/67 07/17/21 12:00 73 89/56 L 07/17/21 11:40 75 115/74 07/17/21 11:20 78 120/72 07/17/21 11:00 77 121/73 07/17/21 10:40 78 119/74 07/17/21 10:20 76 130/77 07/17/21 10:00 78 127/74 07/17/21 09:40 78 127/77 07/17/21 09:24 80 139/77 07/17/21 09:18 36.9 C 81 07/17/21 08:07 37.1 C 65 18 134/77 07/17/21 07:16 78 07/17/21 03:38 37.3 C 76 20 144/85 H Pulse Ox 07/17/21 13:00 07/17/21 12:40 07/17/21 12:20 07/17/21 12:00 07/17/21 11:40 07/17/21 11:20 07/17/21 11:00 07/17/21 10:40 07/17/21 10:20 07/17/21 10:00 07/17/21 09:40 07/17/21 09:24 07/17/21 09:18 07/17/21 08:07 96 07/17/21 07:16 07/17/21 03:38 94 PG Care Time/CCT Total # of Minutes Spent Total Time Spent with Patient: Total time spent is greater than 50% in coordination of care (as documented) at patient's floor/unit and/or counseling patient: Coding Level of Care Code 92738 Inpt Consult Level 4 Diagnoses Acute respiratory failure with hypoxia J96.01 Multifocal pneumonia J18.9 Pulmonary edema J81.1 ESRD (end stage renal disease) on dialysis N18.6; Z99.2
--- NOTE | 2021-07-17 14:44 | Hospitalist Progress Note ---
Date of Service July 17, 2021 Assessment & Plan (1) Acute respiratory failure with hypoxia: Plan: Most likely due to pulmonary edema, aspiration pneumonitis -CTA chest 07/11-- bilateral pleural effusion, patchy opacities at bilateral bases, no PE -s/p 1 unit pRBC 07/11 at dialysis -Patient was on 2L of oxygen then required 15 L via oxymask then BIPAP now weaned down to 4L NC -Repeat CXR 07/12 again shows volume overload. -Repeat CXR 07/15- again shows volume overload (unchanged per radiology read, but appears to me to be improved) -CT chest 07/16- shows worsening bilateral asymmetrical interstitial opacities concerning for pulmonary edema. On exam does NOT appear volume overloaded. -Uncertain etiology for his worsening interstitial opacities. Will ask for Pulmonology consult -2 step is ordered (2) Acute on chronic anemia: Plan: -likely due to chronic kidney disease, Hb 6.6 s/p 1 unit pRBC -No evidence of active bleed -will repeat labwork tomorrow at dialysis (3) Multifocal pneumonia: Plan: -Patient finished 7 days of ertapenem previously -after episode of vomiting and concern for aspiration 07/11, he was placed on cefepime and flagyl. This was discontinued and he was placed back on Ertapenm 07/12-07/14 -Patient unable to get zosyn due to reported history of PCN allergy. -no cough, no fever, or leukocytosis. Procalcitonin neg x 3--> antibiotics were discontinued 07/14. He has remained stable off antibiotics (4) Acute kidney injury (IVAN) with acute tubular necrosis (ATN): Plan: -Acute kidney injury due to ischemic ATN in setting of nausea and vomiting from gastroparesis, now with progression to ESRD requiring dialysis. Started on Dialysis here -Management per Nephrology -OP dialysis has been set up per (5) Diabetic gastroparesis: Plan: s/p Gastric stimulator Patient reports chronic nausea and constipation Patient counseled on small meals already on promotility agents (6) Diabetes: Plan: Hypoglycemia this admission. Type I diabetes, glycemic pharmacy for management. (7) Primary cancer of left lung metastatic to other site: Plan: -Recently finished radiation treatments and is scheduling for a PET scan in 1 month. New metastatic disease on left lung seen. Results were shared with his oncologist and with patient. OP follow up with Oncology. -Patient requesting a port be placed to reduce blood draws. While here, will reduce lab draws to dialysis days (can be drawn at dialysis). Will hold off on port placement--will defer this to Oncology if further plans for chemotherapy (8) HTN (hypertension): Plan: chronic, stable, lisinopril on hold in setting of worsening renal failure. Continue amlodipine 10 mg daily and Catapres TTS weekly patch per home regimen (9) Chronic pain: Plan: Currently managed with gabapentin 200 mg p.o. 3 times daily which is a reduction from his home dose of 400 mg p.o. 3 times daily in setting of renal failure. Refusing APAP, has oxy PRN if needed and he is aware it is there if he needs it. will give a dose of iv dilaudid for exacerbation of pain episode. -also continued on oxycodone 10mg Q 6PRN (10) Seizure disorder: Plan: Chronic, stable, no evidence of seizure activity. Continue Keppra per home regimen at reduced dose of 500 mg p.o. 3 times daily in setting of renal failure (11) DVT prophylaxis: Plan: No signs of active bleed. Increased risk for VTE with underlying cancer and prolonged hospitalization. SQ heparin BID started 07/14 Full code Plan: Disposition--2 step ordered. Admission and Anticipated Discharge Date Admission Date: June 30, 2021 Subjective my breathing is up and down Still on 4L NC Going for dialysis today Feels drained and tired Physical Exam Physical Exam: appears fatigued, no acute distress Respiratory: breathing comfortable, fine crackles bilaterally, no wheezing Cardiovascular: regular rate and rhythm, no murmurs/rubs/gallops Gastrointestinal (Abdomen): soft, non tender, non distended Musculoskeletal: no edema Neurologic: awake, alert, spontaneously moving extremities Results & Data Results & Data ([facility]) Vital Signs (Past 12 Hours) Vital Signs Temp Pulse Pulse Resp BP BP BP 07/17/21 13:00 73 115/68 07/17/21 12:40 72 122/68 07/17/21 12:20 73 112/67 07/17/21 12:00 73 89/56 L 07/17/21 11:40 75 115/74 07/17/21 11:20 78 120/72 07/17/21 11:00 77 121/73 07/17/21 10:40 78 119/74 07/17/21 10:20 76 130/77 07/17/21 10:00 78 127/74 07/17/21 09:40 78 127/77 07/17/21 09:24 80 139/77 07/17/21 09:18 36.9 C 81 07/17/21 08:07 37.1 C 65 18 134/77 07/17/21 07:16 78 07/17/21 03:38 37.3 C 76 20 144/85 H Pulse Ox 07/17/21 13:00 07/17/21 12:40 07/17/21 12:20 07/17/21 12:00 07/17/21 11:40 07/17/21 11:20 07/17/21 11:00 07/17/21 10:40 07/17/21 10:20 07/17/21 10:00 07/17/21 09:40 07/17/21 09:24 07/17/21 09:18 07/17/21 08:07 96 07/17/21 07:16 07/17/21 03:38 94 (1) Diabetes Diabetes mellitus complication status: with other specified complication Diabetes mellitus type: type 1 Qualified Code(s): E10.69 - Type 1 diabetes mellitus with other specified complication (2) Chronic pain Chronic pain type: other chronic pain Qualified Code(s): G89.29 - Other chronic pain
[2021-07-18] MEDS: CHECK CLONIDINE PATCH PLACEMENT SCH ×3 (00:16→15:03)
[2021-07-18] MEDS: guaiFENesin/DEXTROM SYRUP 200MG/20MG 10ML UDC PO SCH ×4 (05:01→20:43)
[2021-07-18] MEDS: INSULIN ASPART PER UNIT SC SCH ×4 (06:19→22:26)
[2021-07-18] MEDS: INSULIN GLARGINE SOLOSTAR 100 UNITS/ML 3 ML PEN SC SCH (06:53)
[2021-07-18] MEDS ORDERED: MIDAZOLAM HCL 5 MG/ML 1 ML VIAL ONE (07:41)
[2021-07-18] MEDS ORDERED: fentaNYL citrate 100 MCG/2 ML VIAL ONE (07:41)
--- NOTE | 2021-07-18 08:05 | History & Physical Bridge Note ---
Date of Service July 18, 2021 History & Physical Bridge Note I have examined the patient, reviewed the History & Physical and in the interval since the performance of the History & Physical I have noted the following changes of clinical significance: no changes noted
--- NOTE | 2021-07-18 08:05 | Pre Anesthesia Assessment ---
Date of Service July 18, 2021 Pre Sedation Assessment Vital Signs Temp Pulse Pulse Resp BP BP BP 07/18/21 07:06 84 07/18/21 06:43 36.9 C 84 20 135/63 07/18/21 03:04 36.8 C 86 20 127/71 07/18/21 00:27 83 07/17/21 22:36 37.1 C 83 20 132/66 07/17/21 15:42 36.9 C 89 18 146/80 H 07/17/21 15:10 87 07/17/21 13:27 36.8 C 76 148/87 H 07/17/21 13:00 73 115/68 07/17/21 12:40 72 122/68 07/17/21 12:20 73 112/67 07/17/21 12:00 73 89/56 L 07/17/21 11:40 75 115/74 07/17/21 11:20 78 120/72 07/17/21 11:00 77 121/73 07/17/21 10:40 78 119/74 07/17/21 10:20 76 130/77 07/17/21 10:00 78 127/74 07/17/21 09:40 78 127/77 07/17/21 09:24 80 139/77 07/17/21 09:18 36.9 C 81 07/17/21 08:07 37.1 C 65 18 134/77 Pulse Ox 07/18/21 07:06 07/18/21 06:43 90 07/18/21 03:04 90 07/18/21 00:27 07/17/21 22:36 91 07/17/21 15:42 97 07/17/21 15:10 07/17/21 13:27 07/17/21 13:00 07/17/21 12:40 07/17/21 12:20 07/17/21 12:00 07/17/21 11:40 07/17/21 11:20 07/17/21 11:00 07/17/21 10:40 07/17/21 10:20 07/17/21 10:00 07/17/21 09:40 07/17/21 09:24 07/17/21 09:18 07/17/21 08:07 96 Pre-Sedation Airway Assessment Smoking Status: Former smoker Hx Sleep Apnea: No Short, Thick Neck: No Thyromental Distance: > or= 3.5 Finger Breadths Oral Cavity: + WNL Mallampati Class: II ASA: ASA3 NPO Status Date of Last Intake of Fluids: 07/17/21 Time of Last Intake of Fluids: 21:00 Date of Last Intake of Solid Food: 07/17/21 Time of Last Intake of Solid Foods: 18:00 Notes The planned sedation has been discussed with the patient. Informed Consent was obtained. I have identified the patient, determined the appropriateness of sedation and have assessed the patient immediately prior to the procedure. All medicine(s) and interventions are by my order.
--- NOTE | 2021-07-18 08:45 | Post Anesthesia Assessment ---
Date of Service July 18, 2021 Post Sedation Assessment Vital Signs Temp Pulse Pulse Resp BP BP BP 07/18/21 08:36 79 16 128/76 07/18/21 08:30 76 18 134/79 07/18/21 08:25 79 16 146/83 H 07/18/21 08:20 81 18 150/85 H 07/18/21 07:06 84 07/18/21 06:43 36.9 C 84 20 135/63 07/18/21 03:04 36.8 C 86 20 127/71 07/18/21 00:27 83 07/17/21 22:36 37.1 C 83 20 132/66 07/17/21 15:42 36.9 C 89 18 146/80 H 07/17/21 15:10 87 07/17/21 13:27 36.8 C 76 148/87 H 07/17/21 13:00 73 115/68 07/17/21 12:40 72 122/68 07/17/21 12:20 73 112/67 07/17/21 12:00 73 89/56 L 07/17/21 11:40 75 115/74 07/17/21 11:20 78 120/72 07/17/21 11:00 77 121/73 07/17/21 10:40 78 119/74 07/17/21 10:20 76 130/77 07/17/21 10:00 78 127/74 07/17/21 09:40 78 127/77 07/17/21 09:24 80 139/77 07/17/21 09:18 36.9 C 81 Pulse Ox 07/18/21 08:36 95 07/18/21 08:30 100 07/18/21 08:25 100 07/18/21 08:20 100 07/18/21 07:06 07/18/21 06:43 90 07/18/21 03:04 90 07/18/21 00:27 07/17/21 22:36 91 07/17/21 15:42 97 07/17/21 15:10 07/17/21 13:27 07/17/21 13:00 07/17/21 12:40 07/17/21 12:20 07/17/21 12:00 07/17/21 11:40 07/17/21 11:20 07/17/21 11:00 07/17/21 10:40 07/17/21 10:20 07/17/21 10:00 07/17/21 09:40 07/17/21 09:24 07/17/21 09:18 Recovery Score Activity: Moves 4 extremities Respiration: Deep Breath/Cough Circulation: +/-20% PreAnes Value Consciousness: Fully Awake Oxygen Saturation: <90% w/ supp O2 Post Anesthesia Score: 8 Discharge Sedation Level of Care: Fast Track Phase II Post Sedation Plan On clinical assessment, the patient appears to have tolerated the sedation without complications. Patient is recovering as anticipated. Patient will continue to be monitored by nursing and may be discharged when sedation discharge criteria are met per below protocol. Upon Completions of procedure up to 15 minutes continue every 5 minute vital signs and the P.A.R. score; then discharge to a Phase I or Fast Track to Phase II per the following guidelines: * Discharge Patient to appropriate Phase II area if PAR is 8 or greater or return to pre- procedure baseline. The post - procedure orders will be as directed. * If PAR score is less than 8 or not return to pre-procedure baseline then patient will follow Phase I monitoring till PAR is reached for Phase II. The Phase I may be done in procedure room or may call to secure a Phase I area. * If naloxone or flumazenil are used for reversal, hold in Phase I for continued monitoring from when last reversal dose was given for a minimum of 60 minutes or longer pending the nurse and/or physician discretion of patient condition before discharge to Phase II. Please call the Sedation Physician to re-evaluate and complete post-note for discharge to Phase II area. Do NOT discharge from procedure sedation or Phase 1 until post- sedation evaluation note is complete by procedure /sedation MD Sedation Discharge Instructions to be given to the patient at discharge to home.
--- NOTE | 2021-07-18 08:48 | Procedure Note ---
Supervising Physician Co-Signing Physician Notes PREOPERATIVE DIAGNOSIS: Abnormal CT chest POSTOPERATIVE DIAGNOSIS: Abnormal CT chest PROCEDURE PERFORMED: Flexible fiberoptic bronchoscopy with bronchial alveolar lavage COMPLICATIONS: None. INDICATION: Rule out alveolar hemorrhage and infection PROCEDURE: After obtaining an informed consent, the patient was brought to the Bronchoscopy Suite. The patient had appropriate oxygen, blood pressure, heart rate, and respiratory rate monitoring applied and monitored continuously throughout the procedure. Supplemental oxygen via nasal cannula as per nursing records was applied to the nasopharynx with adequate saturations achieved. Topical anesthesia with nebulized 1% lidocaine was achieved. Subsequent to this, the patient was premedicated with 3 mg of midazolam and 75 mcg of fentanyl. Patient was placed on a high flow nasal cannula prior to the initiation of the procedure and his oxygenation maintained well throughout the procedure. The oropharynx and larynx were well visualized and showed mild erythema. Bronchoscope was inserted via the bite block into the oropharynx. Epiglottis was visualized. Vocal cords were visualized and appeared to be moving normally. The scope was passed through the vocal cords. Trachea and efrain appeared normal. Efrain was sharp. Bilateral tracheobronchial tree inspection was performed with no evidence of bleeding. Left upper lobe takeoff was obstructed with a tissue density. The left lower lobe segments appeared patent. Right-si ded bronchial tree segments appeared patent without any mass lesions. The scope was wedged in the right middle lobe. In sequential aliquots 60 mL of saline was instilled and aspirated back. No evidence of bleeding or hemorrhage was noted upon aspirating the fluid back. Approximately 80 mL of fluid was aspirated back after total of 180 mg was instilled. The scope was then withdrawn to the [facility] hea. Scope was then completely removed. Patient tolerated procedure well. Bronchial alveolar lavage samples from the right middle lobe will be sent for Gram stain, culture, fungal cultures, AFB cultures, cell counts and cytology. Recommendations: Follow culture data, cell counts and cytology.
--- NOTE | 2021-07-18 08:53 | Pulmonology Progress Note ---
Date of Service July 18, 2021 Assessment & Plan (1) Acute respiratory failure with hypoxia: Plan: Possible recovering pna and/or volume overload. Difficult to rule out inflammatory lung condition or lymphangitic spread of malignancy. No evidence of alveolar hemorrhage seen on bronchoscopy. There were foamy secretions seen possibly related to fluid overload. Cell counts, cultures and microscopy data sent from the bronchoscopy. (2) Multifocal pneumonia: Plan: Treated earlier by primary team with ertapenem. BAL cultures sent from the bronchoscopy. (3) Pulmonary edema: Plan: Currently managed by dialysis. (4) ESRD (end stage renal disease) on dialysis: Plan: Defer to renal team. On HD. Admission and Anticipated Discharge Date Admission Date: June 30, 2021 Subjective No significant changes from the day prior. Denies hemoptysis. Currently on 4-5 L of oxygen. Underwent hemodialysis yesterday. Review of Systems Review of Systems: All systems reviewed & are unremarkable except as noted in HPI & below Physical Exam Constitutional: Chronically ill appearing and weak Eyes: PERRL, conjunctivae normal, anicteric sclerae ENMT: external ear and nose normal, oropharynx normal Respiratory: Diffuse crackles and rhonchi. No accessory muscle use Cardiovascular: RRR, no murmur, no edema Gastrointestinal (Abdomen): normal bowel sounds, soft, nontender, no hepatosplenomegaly Musculoskeletal: no cyanosis or clubbing, extremities motor strength 5/5 Neurologic: No focal deficits Psychiatric: A+Ox3, euthymic affect Results & Data Results & Data ([facility]) Vital Signs (Past 12 Hours) Vital Signs Temp Pulse Pulse Resp BP Pulse Ox 07/18/21 08:36 79 16 128/76 95 07/18/21 08:30 76 18 134/79 100 07/18/21 08:25 79 16 146/83 H 100 07/18/21 08:20 81 18 150/85 H 100 07/18/21 07:06 84 07/18/21 06:43 36.9 C 84 20 135/63 90 07/18/21 03:04 36.8 C 86 20 127/71 90 07/18/21 00:27 83 07/17/21 22:36 37.1 C 83 20 132/66 91 PG Care Time/CCT Total # of Minutes Spent Total Time Spent with Patient: Total time spent is greater than 50% in coordination of care (as documented) at patient's floor/unit and/or counseling patient: Coding Level of Care Code 74955 Subseq Hosp Care Lvl 2 Diagnoses Acute respiratory failure with hypoxia J96.01 Multifocal pneumonia J18.9 Pulmonary edema J81.1 ESRD (end stage renal disease) on dialysis N18.6; Z99.2
--- NOTE | 2021-07-18 09:12 | Pharmacy Report ---
Pharmacy Glycemic Short Note 2 - Date of Service July 18, 2021 - Glycemic Short BSG Results (Last 24 hours): 07/17/21 07/17/21 07/17/21 13:40 13:41 16:45 POC Glucose 299 H 174 H 155 H 07/17/21 07/18/21 07/18/21 20:05 00:13 00:15 POC Glucose 110 H 403 H* 369 H* 07/18/21 06:03 POC Glucose 316 H* OUTPATIENT ANTIDIABETIC REGIMEN: * Lantus 7 units SQ QPM * Humulog sliding scale * HbA1c: 9.0% (06/30/21) -- unreliable in the setting of ESRD, now on HD ASSESSMENT: 07/18/21 * Patient was well controlled yesterday with BSGs of 168, 174, 155, 110 mg/dL. He received 6 units of Lantus + 16 units of novolog. * He developed severe hyperglycemia overnight (369 @ midnight) as well as elevated fasting BSG (316). Cause of hyperglycemia is unknown. Patient was NPO during this time and there has been no change to basal insulin in 48 hours. * He had a bronchoscopy with bronchial alveolar lavage procedure this morning. Orders to resume diet with lunch. * Current novolog parameters appear to be working well. 07/17/21 * Patient's BSGs yesterday were [phone] mg/dL and fasting today is 168 mg/dL. * Patient's BSGs starting to stable with initiation of twice daily Lantus. * Continue current insulin parameters. 07/15 * Blood sugars 54-310mg/dl over last 24 hours, with hypoglycemia this morning requiring two doses of 15g CHO to bring up to 77mg/dl, and pt feeling hypo * Change basal to BID dosing to help w/ hypoglycemia, pt seemed to do better 07/06-07/10 when dose was split * No further changes at this time 07/13 * BSGs labile over past 24 hours, ranging 81-323 mg/dL * Given BSG stability for that and patient propensity for labile BSGs, hesitant to make any changes today * Hemodialysis yesterday * If BSGs remain poorly controlled, consider changing back to BID Lantus dosing 07/11 * BSGs have been stable past 24 hours. * Pt transitioned back to PM Lantus dosing today. * No further adjustment required at this time. PLAN FOR INPATIENT GLYCEMIC CONTROL: * Basal insulin * Lantus 3 units SQ qAM, 4 units SQ qPM * Bolus insulin * NovoLog per scale ACHS or Q6hrs while NPO * Goal Range: Low 120 mg/dL - High 160 mg/dL * Correction Factor: 55 mg/dL/unit * Nutritional / Prandial insulin per carb ratio of 1 unit per 18 grams CHO consumed
[2021-07-18] MEDS: FLUTICASONE/VILANTEROL 100/25MCG 14 PUFFS/INHALER INH SCH (10:36)
[2021-07-18] MEDS: PANTOprazole 40 MG TAB PO SCH ×2 (10:37→20:43)
[2021-07-18] MEDS: METOCLOPRAMIDE HCL 10 MG TABLET PO SCH ×3 (10:37→20:43)
[2021-07-18] MEDS: GABAPENTIN 100 MG CAP PO SCH ×3 (10:37→20:42)
[2021-07-18] MEDS: amLODIPine BESYLATE 5 MG TAB PO SCH (10:38)
[2021-07-18] MEDS: ROSUVASTATIN CALCIUM 20 MG TAB PO SCH (10:38)
[2021-07-18] MEDS: SACCHAROMYCES BOULARDII 250 MG CAP PO SCH (10:38)
[2021-07-18] MEDS: levETIRAcetam 500 MG TAB PO SCH ×2 (10:38→20:42)
--- NOTE | 2021-07-18 11:13 | Nephrology Progress Note ---
Date of Service July 18, 2021 Assessment & Plan (1) ESRD (end stage renal disease) on dialysis: Plan: Patient admitted with stage 2 oligoanuric acute kidney injury on advanced CKD 4 w/ baseline high risk for progression > now ESRD. ischemic ATN in setting of nausea and vomiting for several days on underlying advanced diabetic nephropathy. Patient also found to have aspiration pneumonia and more recently pulmonary edema. Creatinine on admission was 6.1 from a baseline of 3. Creatinine down to 5.7 after receiving IV fluids but worsened to 8s and w/ oligoanuria. Given history of metastatic cancer and of the multiple comorbidities, patient may not be a good candidate for dialysis. However he wishes to try and understands risks it may not go well after discussion w/ me; finds these prefereable to no intervention. consent is on chart. Plan trial of HD 4-6 wks then reassess tolerance and discuss permanent vasc access at that time -Renally dose antibiotics for GFR less than 15 mL/min -Monitor renal function with daily BMP -TDC placed 07/04; first HD same day -Last HD on 07/17 w/ 3.6L UF; one before that is 07/14 with 3.5 lit UF >for HD tomorrow goal UF 4L >>pls CHANGE OP dialysis arrangement to [facility]ialysis under care of Dr. Barajas; pt originally asked for dialysis under care of Dr Lord at [facility]; but this is a 3 day weekly unit and he may need extra txs as OP > [facility] is 6d/wkly unit; updated vocational case manager and coordinated care w/ Dr Lacy -continue aggressive UF, frequent txs fro now -no PROSPER d/t cancer hx > monitor anemia frequently as he is transfusion dependent (2) Primary cancer of left lung metastatic to other site: Plan: Patient is status post resection and radiation to the ninth rib. not a candidate for further chemo per oncology. upcomin gPET a few weeks after d/c; multple mets noted on 07/03 CT -fact that he's not a candidate for further chemo means no mediport needed, at least not for now (3) Pulmonary edema: Plan: >>he is having excessive wt gain/ plm edema and question remains why >> f/u bronch studies Admission and Anticipated Discharge Date Admission Date: June 30, 2021 Subjective had bronch today to r/o DAH; none found; studies pending; no further abtx indicated curretnly; states he tolerated well; I verified that he still wanted to dialyze in [place] - (concern b/c unit is 3d/wk and he needs often >3 d/wk); he now says [place] would be ok; stable dyspnea, diffuse chronic pain Review of Systems Review of Systems: All systems reviewed & are unremarkable except as noted in Subjective Physical Exam Constitutional: well nourished, + ill appearing, + frail appearing and cooperative; no acute distress Eyes: EOM intact bilaterally ENMT: Ears: no external ear abnormality Nose: no external nose abnormality Mouth: + dry oral mucous membranes Neck: no nuchal rigidity Respiratory: normal respiratory effort Auscultation: + diminished lung sounds Cardiovascular: Rate/Rhythm: regular rate and regular rhythm Extremities: + edema (trace) Gastrointestinal (Abdomen): Inspection/Auscultation: normal bowel sounds Percussion/Palpation: abdomen soft; abdomen nontender Musculoskeletal: Extremities: strength 5/5 throughout Skin: no rashes, warm and dry Neurologic: villarreal, fluent speech, no tremor but some myoclonic jerks as previously Psychiatric: Orientation: oriented x 3 Results & Data ([facility]) Vital Signs (Past 12 Hours) Vital Signs Temp Pulse Pulse Resp BP Pulse Ox 07/18/21 10:00 97 07/18/21 09:10 92 07/18/21 08:51 78 16 108/70 95 07/18/21 08:36 79 16 128/76 95 07/18/21 08:30 76 18 134/79 100 07/18/21 08:25 79 16 146/83 H 100 07/18/21 08:20 81 18 150/85 H 100 07/18/21 07:06 84 07/18/21 06:43 36.9 C 84 20 135/63 90 07/18/21 03:04 36.8 C 86 20 127/71 90 07/18/21 00:27 83 Laboratory Results 07/17/21 06:05 07/17/21 06:05
--- NOTE | 2021-07-18 14:35 | Hospitalist Progress Note ---
Date of Service July 18, 2021 Assessment & Plan (1) Acute respiratory failure with hypoxia: Plan: Most likely due to pulmonary edema, aspiration pneumonitis -CTA chest 07/11-- bilateral pleural effusion, patchy opacities at bilateral bases, no PE -s/p 1 unit pRBC 07/11 at dialysis -Patient was on 2L of oxygen then required 15 L via oxymask then BIPAP (07/11) now weaned down to 4L NC -Repeat CXR 07/12 again shows volume overload. -Repeat CXR 07/15- again shows volume overload -CT chest 07/16- shows worsening bilateral asymmetrical interstitial opacities concerning for pulmonary edema. On exam does NOT appear volume overloaded. -Uncertain etiology for his worsening interstitial opacities. Pulm consulted 07/17. Bronchoscopy today no DAH, BAL sent for cytology and culture -will need 2 step closer to discharge date (2) Acute on chronic anemia: Plan: -likely due to chronic kidney disease, Hb 6.6 s/p 1 unit pRBC -No evidence of active bleed -labwork on dialysis days only (3) Multifocal pneumonia: Plan: -Patient finished 7 days of ertapenem previously -after episode of vomiting and concern for aspiration 07/11, he was placed on cefepime and flagyl. This was discontinued and he was placed back on Ertapenm 07/12-07/14 -Patient unable to get zosyn due to reported history of PCN allergy. -no cough, no fever, or leukocytosis. Procalcitonin neg x 3--> antibiotics were discontinued 07/14. He has remained stable off antibiotics (4) Acute kidney injury (IVAN) with acute tubular necrosis (ATN): Plan: -Acute kidney injury due to ischemic ATN in setting of nausea and vomiting from gastroparesis, now with progression to ESRD requiring dialysis. Started on D ialysis here -Management per Nephrology, next dialysis session is scheduled for tomorrow. -OP dialysis has been set up per CM at [facility] in [place] but with frequency of dialysis he has required here, he may need more than 3x weekly dialysis. So Nephrology has reached out to CM for him to get set up at [place] (5) Diabetic gastroparesis: Plan: s/p Gastric stimulator Patient reports chronic nausea and constipation Patient counseled on small meals already on promotility agents (6) Diabetes: Plan: Hypoglycemia this admission. Type I diabetes, glycemic pharmacy for management. (7) Primary cancer of left lung metastatic to other site: Plan: -Recently finished radiation treatments and is scheduling for a PET scan in 1 month. New metastatic disease on left lung seen. Results were shared with his oncologist and with patient. OP follow up with Oncology. -Patient requesting a port be placed to reduce blood draws. While here, will reduce lab draws to dialysis days (can be drawn at dialysis). Will hold off on port placement--will defer this to Oncology if further plans for chemotherapy (8) HTN (hypertension): Plan: chronic, stable, lisinopril on hold in setting of worsening renal failure. Continue amlodipine 10 mg daily and Catapres TTS weekly patch per home regimen (9) Chronic pain: Plan: Currently managed with gabapentin 200 mg p.o. 3 times daily which is a reduction from his home dose of 400 mg p.o. 3 times daily in setting of renal failure. Refusing APAP, has oxy PRN if needed and he is aware it is there if he needs it. will give a dose of iv dilaudid for exacerbation of pain episode. -also continued on oxycodone 10mg Q 6PRN (10) Seizure disorder: Plan: Chronic, stable, no evidence of seizure activity. Continue Keppra per home regimen at reduced dose of 500 mg p.o. 3 times daily in setting of renal failure (11) DVT prophylaxis: Plan: No signs of active bleed. Increased risk for VTE with underlying cancer and prolonged hospitalization. SQ heparin BID started 07/14 which was held for bronchoscopy today, can resume it tomorrow Full code Plan: Needs dialysis set up at [place]. Order 2 step when closer to discharge. Admission and Anticipated Discharge Date Admission Date: June 30, 2021 Subjective Patient seen after bronchoscopy today He feels very drowsy No overt complaints currently Physical Exam Physical Exam: drowsy but arousable, no acute distress Respiratory: no accessory muscle use, diminished at bases Cardiovascular: regular rate and rhythm, no murmurs/rubs/gallops Gastrointestinal (Abdomen): soft, non tender Musculoskeletal: no edema Neurologic: awake, alert, spontaneously moving extremities Results & Data Results & Data ([facility]) Vital Signs (Past 12 Hours) Vital Signs Temp Pulse Pulse Pulse Resp BP Pulse Ox 07/18/21 11:44 36.5 C 77 18 130/74 93 03/15/22 11:11 98 07/18/21 10:00 97 07/18/21 09:10 92 07/18/21 08:51 78 16 108/70 95 07/18/21 08:36 79 16 128/76 95 07/18/21 08:30 76 18 134/79 100 07/18/21 08:25 79 16 146/83 H 100 07/18/21 08:20 81 18 150/85 H 100 07/18/21 07:06 84 07/18/21 06:43 36.9 C 84 20 135/63 90 07/18/21 03:04 36.8 C 86 20 127/71 90 Medications Administered Current Inpatient Medications Acetaminophen (Acetaminophen 325 Mg Tab) 650 mg PO Q4H PRN PRN Reason: Pain or Fever Stop: 07/30/21 23:01 Amlodipine Besylate (Amlodipine Besylate 5 Mg Tab) 10 mg PO DAILY DAMIR Stop: 07/31/21 08:59 Last Admin: 07/18/21 10:38 Dose: 10 mg Documented by: Clonidine HCl (Clonidine Hcl 0.2 Mg/24 Hr Transderm Sys) 1 patch TD Fr@2200 [facility] Stop: 07/30/21 21:59 Last Admin: 07/14/21 22:20 Dose: 1 patch Documented by: Dextrose (Dextrose 50% 50 Ml Syringe) 25 - 50 ml IV UD PRN; Protocol PRN Reason: Hypoglycemia Protocol Stop: 07/30/21 20:44 Fluticasone/Vilanterol (Fluticasone/Vilanterol 100/25mcg 14 Puffs/Inhaler) 1 puffs INH DAILY DAMIR Stop: 07/31/21 08:59 Last Admin: 07/18/21 10:36 Dose: 1 puffs Documented by: Gabapentin (Gabapentin 100 Mg Cap) 200 mg PO TID DAMIR Stop: 07/31/21 08:59 Last Admin: 07/18/21 10:37 Dose: 200 mg Documented by: Glucagon (Glucagon For Inj 1 Mg Vial) 1 mg IM UD PRN; Protocol PRN Reason: Hypoglycemia Protocol Stop: 07/30/21 20:44 Glucagon (Glucagon For Inj 1 Mg Vial) 1 mg SQ UD PRN; Protocol PRN Reason: Hypoglycemia Protocol Stop: 07/30/21 23:01 Glucose (Glucose 40% Gel 15 Gm Tube) 15 - 30 gm PO UD PRN; Protocol PRN Reason: Hypoglycemia Protocol Stop: 07/30/21 20:44 Last Admin: 07/02/21 11:02 Dose: 15 gm Documented by: Glucose (Glucose 10 Tabs/Tube) 4 - 8 tabs PO UD PRN; Protocol PRN Reason: Hypoglycemia Protocol Stop: 07/30/21 20:44 Guaifenesin/Dextromethorphan (Guaifenesin/Dextrom Syrup 200mg/20mg 10ml Udc) 10 ml PO Q6H [facility] Stop: 08/09/21 09:29 Last Admin: 07/18/21 10:37 Dose: 10 ml Documented by: Heparin Sodium (Porcine) (Heparin Sod 5,000 Unit/0.5 Ml Vial) 5,000 units SQ Q12 [facility] Stop: 08/13/21 20:59 Last Admin: 07/17/21 08:13 Dose: 5,000 units Documented by: Promethazine HCl 12.5 mg/ (Sodium Chloride) 50.5 mls @ 202 mls/hr IV Q6H PRN PRN Reason: Nausea And Vomiting Stop: 07/30/21 23:01 Last Infusion: 07/16/21 21:27 Dose: Infused Documented by: Dextrose/Sodium Chloride (D5w And 1/4nss) 1,000 mls @ 0 mls/hr IV .Q0M [facility] Stop: 08/03/21 07:59 Last Infusion: 07/04/21 08:04 Dose: Infused Documented by: Insulin Aspart (Insulin Aspart Per Unit) 0 units SC ACHS [facility] Stop: 08/03/21 11:29 Last Admin: 07/18/21 11:40 Dose: 6 units Documented by: Insulin Glargine (Insulin Glargine Solostar 100 Units/Ml 3 Ml Pen) 3 units SC BID [facility]; Protocol Stop: 08/14/21 20:59 Last Admin: 07/18/21 06:53 Dose: 3 units Documented by: Insulin Glargine (Insulin Glargine Solostar 100 Units/Ml 3 Ml Pen) 4 units SC HS [facility]; Protocol Stop: 07/18/21 23:59 Levalbuterol HCl (Levalbuterol Hcl 1.25 Mg/3 Ml Neb) 1.25 mg NEB Q4H PRN; Protocol PRN Reason: Shortness Of Breath Or Wheezing Stop: 08/07/21 04:59 Last Admin: 07/15/21 07:28 Dose: 1.25 mg Documented by: Levetiracetam (Levetiracetam 500 Mg Tab) 500 mg PO BID [facility] Stop: 07/31/21 08:59 Last Admin: 07/18/21 10:38 Dose: 500 mg Documented by: Metoclopramide HCl (Metoclopramide Hcl 10 Mg Tablet) 10 mg PO TID [facility] Stop: 07/31/21 08:59 Last Admin: 07/18/21 10:37 Dose: 10 mg Documented by: Miscellaneous (Carbohydrates For Hypoglycemia ) 15 - 30 gm PO UD PRN PRN Reason: Hypoglycemia Treatment Stop: 07/30/21 20:44 Last Admin: 07/15/21 08:06 Dose: 15 gm Documented by: Bjaneous (Remove Clonidine Patch) 1 ea N/A Fr@2159 [facility] Stop: 07/30/21 21:58 Last Admin: 07/14/21 22:20 Dose: 1 ea Documented by: Carmencellaneous (Check Clonidine Patch Placement) 1 ea N/A QS [facility] Stop: 07/31/21 00:00 Last Admin: 07/18/21 07:44 Dose: 1 ea Documented by: Miscellaneous Information (Pharmacy Glycemic Mgmt Consult) 1 ea N/A UD PRN PRN Reason: Consult Stop: 08/01/21 10:32 Oxycodone HCl (Oxycodone Hcl Ir 5 Mg Tab (Immediate Release)) 10 mg PO Q6 PRN PRN Reason: Pain Stop: 07/29/21 07:33 Last Admin: 07/16/21 20:04 Dose: 10 mg Documented by: Pantoprazole Sodium (Pantoprazole 40 Mg Tab) 40 mg PO BID [facility] Stop: 08/09/21 20:59 Last Admin: 07/18/21 10:37 Dose: 40 mg Documented by: Rosuvastatin Calcium (Rosuvastatin Calcium 20 Mg Tab) 20 mg PO DAILY [facility] Stop: 07/31/21 08:59 Last Admin: 07/18/21 10:38 Dose: 20 mg Documented by: Saccharomyces Boulardii (Saccharomyces Boulardii 250 Mg Cap) 250 mg PO DAILY [facility] Stop: 08/11/21 08:59 Last Admin: 07/18/21 10:38 Dose: 250 mg Documented by: (1) Diabetes Diabetes mellitus complication status: with other specified complication Diabetes mellitus type: type 1 Qualified Code(s): E10.69 - Type 1 diabetes mellitus with other specified complication (2) Chronic pain Chronic pain type: other chronic pain Qualified Code(s): G89.29 - Other chronic pain
[2021-07-18 16:38] LABS: Eosinophil Body Fluid Man 2 %; Fluid Mono/Macrophage 71 %; Lymphocyte Body Fluid Man 15 %; Neutrophil Body Fluid Man 12 %
[2021-07-18] MEDS: HEPARIN SOD 5,000 UNIT/0.5 ML VIAL SQ SCH (20:44)
[2021-07-18] MEDS ORDERED: INSULIN GLARGINE SOLOSTAR 100 UNITS/ML 3 ML PEN SC SCH (21:00)
[2021-07-18] MEDS: oxyCODONE HCL IR 5 MG TAB (IMMEDIATE RELEASE) PO PRN (22:24)
[2021-07-19] MEDS: CHECK CLONIDINE PATCH PLACEMENT SCH ×4 (02:37→23:15)
[2021-07-19] MEDS: guaiFENesin/DEXTROM SYRUP 200MG/20MG 10ML UDC PO SCH ×4 (04:16→21:52)
[2021-07-19] MEDS ORDERED: HEPARIN SOD (PORCINE) 1000 UNIT/ML IV ONE (07:59)
[2021-07-19] MEDS ORDERED: SODIUM CHLORIDE 0.9% 1000ML 1,000 ML IV PRN (07:59)
[2021-07-19 08:28] LABS: Hematocrit (blood only) 26.5 % (42-52); Hemoglobin 8.7 g/dL (14.0-18.0); Mean Corpuscular Hgb Conc 32.8 g/dL (32-36); Mean Corpuscular Volume 88.3 fL (80-100); Mean Platelet Volume 9.9 fL (7.4-10.4); Platelet Count 352 K/uL (130-400); RDW Coefficient of Variation 13.4 % (11.5-14.5); RDW Standard Deviation 43.1 fL (36.4-46.3); White Blood Count 6.19 K/uL (4.8-10.8)
[2021-07-19 08:52] LABS: Creatinine Clr Calc Pharmacy 13.4 ml/min; Est GFR (African American) 10.1 ml/min; Est GFR (Non-African American) 8.7 ml/min; Potassium 4.2 mmol/L (3.5-5.1)
[2021-07-19] MEDS: ROSUVASTATIN CALCIUM 20 MG TAB PO SCH (09:25)
[2021-07-19] MEDS: PANTOprazole 40 MG TAB PO SCH ×2 (09:25→21:53)
[2021-07-19] MEDS: METOCLOPRAMIDE HCL 10 MG TABLET PO SCH ×3 (09:25→21:53)
[2021-07-19] MEDS: SACCHAROMYCES BOULARDII 250 MG CAP PO SCH (09:25)
[2021-07-19] MEDS: GABAPENTIN 100 MG CAP PO SCH ×3 (09:26→21:54)
[2021-07-19] MEDS: levETIRAcetam 500 MG TAB PO SCH ×2 (09:26→21:53)
[2021-07-19] MEDS: FLUTICASONE/VILANTEROL 100/25MCG 14 PUFFS/INHALER INH SCH (09:30)
[2021-07-19] MEDS: INSULIN GLARGINE SOLOSTAR 100 UNITS/ML 3 ML PEN SC SCH ×2 (09:32→21:52)
[2021-07-19] MEDS: INSULIN ASPART PER UNIT SC SCH ×4 (09:42→21:56)
[2021-07-19] MEDS: HEPARIN SOD 5,000 UNIT/0.5 ML VIAL SQ SCH ×2 (09:43→21:55)
--- NOTE | 2021-07-19 10:57 | Dialysis Progress Note ---
Date of Service July 19, 2021 Assessment & Plan (1) ESRD (end stage renal disease) on dialysis: Plan: Patient admitted with stage 2 oligoanuric acute kidney injury on advanced CKD 4 w/ baseline high risk for progression > now ESRD. ischemic ATN in setting of nausea and vomiting for several days on underlying advanced diabetic nephropathy. Patient also found to have aspiration pneumonia and more recently pulmonary edema. Creatinine on admission was 6.1 from a baseline of 3. Creatinine down to 5.7 after receiving IV fluids but worsened to 8s and w/ oligoanuria. Given history of metastatic cancer and of the multiple comorbidities, patient may not be a good candidate for dialysis. However he wishes to try and understands risks it may not go well after discussion w/ me; finds these prefereable to no intervention. consent is on chart. Plan trial of HD 4-6 wks then reassess tolerance and discuss permanent vasc access at that time -Renally dose antibiotics for GFR less than 15 mL/min -Monitor renal function with daily BMP -TDC placed 07/04; first HD same day -Last HD on 07/17 w/ 3.6L UF; one before that is 07/14 with 3.5 lit UF >for HD tomorrow goal UF 4L >>admission request pending for [facility] under care of Dr. Barajas; pt originally asked for dialysis under care of Dr Lord at [facility]; but this is a 3 day weekly unit and he may need extra txs as OP > [facility] is 6d/wkly unit and closer to his home; appreciate case mgt asst -continue aggressive UF, frequent txs fro now -no PROSPER d/t cancer hx > monitor anemia frequently as he is transfusion dependent (2) Primary cancer of left lung metastatic to other site: Plan: Patient is status post resection and radiation to the ninth rib. not a candidate for further chemo per oncology. upcomin gPET a few weeks after d/c; multple mets noted on 07/03 CT -fact that he's not a candidate for further chemo means no mediport needed, at least not for now (3) Pulmonary edema: Plan: >>he is having excessive wt gain/ plm edema and question remains why >> f/u bronch studies Admission and Anticipated Discharge Date Admission Date: June 30, 2021 Physical Exam Constitutional: well nourished, + ill appearing, + frail appearing and cooperative; no acute distress Eyes: EOM intact bilaterally ENMT: Ears: no external ear abnormality Nose: no external nose abnormality Mouth: + dry oral mucous membranes Neck: no nuchal rigidity Respiratory: normal respiratory effort Auscultation: + diminished lung sounds Cardiovascular: Rate/Rhythm: regular rate and regular rhythm Extremities: + edema (trace) Gastrointestinal (Abdomen): Inspection/Auscultation: normal bowel sounds Percussion/Palpation: abdomen soft; abdomen nontender Musculoskeletal: Extremities: strength 5/5 throughout Skin: no rashes, warm and dry Psychiatric: Orientation: oriented x 3 Results & Data ([facility]) Vital Signs (Past 12 Hours) Vital Signs Temp Pulse Pulse Resp BP BP Pulse Ox 07/19/21 10:40 75 120/67 07/19/21 10:20 76 134/74 07/19/21 10:09 78 154/92 H 07/19/21 09:59 36.5 C 79 07/19/21 06:36 36.4 C L 73 18 146/80 H 90 07/19/21 06:20 72 07/19/21 05:38 85 07/19/21 04:06 36.6 C 78 20 148/77 H 90 07/18/21 23:13 36.7 C 83 20 139/75 95 Laboratory Results 07/19/21 08:09 07/19/21 08:09
[2021-07-19] MEDS: HEPARIN SOD (PORCINE) 1000 UNIT/ML IV SCH ×3 (11:55→12:14)
--- NOTE | 2021-07-19 14:02 | Hospitalist Progress Note ---
Date of Service July 19, 2021 Assessment & Plan (1) Acute respiratory failure with hypoxia: Plan: Most likely due to pulmonary edema, aspiration pneumonitis -CTA chest 07/11-- bilateral pleural effusion, patchy opacities at bilateral bases, no PE -s/p 1 unit pRBC 07/11 at dialysis -Patient was on 2L of oxygen then required 15 L via oxymask then BIPAP (07/11) now weaned down to 2 L NC -Repeat CXR 07/12 again shows volume overload. -Repeat CXR 07/15- again shows volume overload -CT chest 07/16- shows worsening bilateral asymmetrical interstitial opacities concerning for pulmonary edema. On exam does NOT appear volume overloaded. -Uncertain etiology for his worsening interstitial opacities. Pulm consulted 07/17. Bronchoscopy 07/18 no DAH, BAL sent for cytology and culture -will need 2 step closer to discharge date (2) Acute on chronic anemia: Plan: -likely due to chronic kidney disease, Hb 6.6->8.7 s/p 1 unit pRBC -No evidence of active bleed -labwork on dialysis days only (3) Multifocal pneumonia: Plan: -Patient finished 7 days of ertapenem previously -after episode of vomiting and concern for aspiration 07/11, he was placed on cefepime and flagyl. This was discontinued and he was placed back on Ertapenm 07/12-07/14 -Patient unable to get zosyn due to reported history of PCN allergy. -no cough, no fever, or leukocytosis. Procalcitonin neg x 3--> antibiotics were discontinued 07/14. He has remained stable off antibiotics (4) Acute kidney injury (IVAN) with acute tubular necrosis (ATN): Plan: -Acute kidney injury due to ischemic ATN in setting of nausea and vomiting from gastroparesis, now with progression to ESRD requiring dialysis. Started on Dialysis here -Management per Nephrology, next dialysis session is scheduled for tomorrow. -OP dialysis has been set up per CM at [facility] in [place] but with frequency of dialysis he has required here, he may need more than 3x weekly dialysis. So Nephrology has reached out to CM for him to get set up at [place] (5) Diabetic gastroparesis: Plan: s/p Gastric stimulator Patient reports chronic nausea and constipation Patient counseled on small meals already on promotility agents (6) Diabetes: Plan: Hypoglycemia this admission. Type I diabetes, glycemic pharmacy for management. (7) Primary cancer of left lung metastatic to other site: Plan: -Recently finished radiation treatments and is scheduling for a PET scan in 1 month. New metastatic disease on left lung seen. Results were shared with his oncologist and with patient. OP follow up with Oncology. -Patient requesting a port be placed to reduce blood draws. While here, will reduce lab draws to dialysis days (can be drawn at dialysis). Will hold off on port placement--will defer this to Oncology if further plans for chemotherapy (8) HTN (hypertension): Plan: chronic, stable, lisinopril on hold in setting of worsening renal failure. Continue amlodipine 10 mg daily and Catapres TTS weekly patch per home regimen (9) Chronic pain: Plan: Currently managed with gabapentin 200 mg p.o. 3 times daily which is a reduction from his home dose of 400 mg p.o. 3 times daily in setting of renal failure. Refusing APAP, has oxy PRN if needed and he is aware it is there if he needs it. will give a dose of iv dilaudid for exacerbation of pain episode. -also continued on oxycodone 10mg Q 6PRN (10) Seizure disorder: Plan: Chronic, stable, no evidence of seizure activity. Continue Keppra per home regimen at reduced dose of 500 mg p.o. 3 times daily in setting of renal failure (11) DVT prophylaxis: Plan: Resume Sc heparin Full code Plan: Needs dialysis set up at [place]. Order 2 step when closer to discharge. Admission and Anticipated Discharge Date Admission Date: June 30, 2021 Subjective He is feeling better. Asking when he would be discharged. His breathing is improved, down to 2 L NC. His sputum expectoration is getting clear. Still having intermittent pain. Feels generally weak. He states he had good urination today after 3 days. Physical Exam Physical Exam: General: sitting in bed, on NC, not in distress HEENT: EOMI, FANTASMA, MMM Chest: Permcath site clear, Fair breath sounds bilaterally CVS: Regular rate and rhythm, normal heart sounds, no murmur Abdomen: Soft, non tender, not distended, normal bowel sounds Neuro: Awake, alert, conversing Extremities: edema trace Results & Data Results & Data ([facility]) Vital Signs (Past 12 Hours) Vital Signs Temp Pulse Pulse Resp BP BP Pulse Ox 07/19/21 12:40 74 151/83 H 07/19/21 12:20 74 150/88 H 07/19/21 12:00 74 134/80 07/19/21 11:40 52 L 128/67 07/19/21 11:20 75 145/73 H 07/19/21 11:00 75 132/68 07/19/21 10:40 75 120/67 07/19/21 10:20 76 134/74 07/19/21 10:09 78 154/92 H 07/19/21 09:59 36.5 C 79 07/19/21 06:36 36.4 C L 73 18 146/80 H 90 07/19/21 06:20 72 07/19/21 05:38 85 07/19/21 04:06 36.6 C 78 20 148/77 H 90 Laboratory Results Short CBC 07/19/21 Range/Units 08:09 WBC 6.19 (4.8-10.8) K/uL Hgb 8.7 L (14.0-18.0) g/dL Hct 26.5 L (42-52) % Plt Count 352 (130-400) K/uL BMP 07/19/21 08:09 Sodium 132 L Potassium 4.2 Chloride 97 L Carbon Dioxide 23 BUN 59 H Creatinine 6.53 H* Glucose 206 H Calcium 8.0 L Medications Administered Current Inpatient Medications Acetaminophen (Acetaminophen 325 Mg Tab) 650 mg PO Q4H PRN PRN Reason: Pain or Fever Stop: 07/30/21 23:01 Amlodipine Besylate (Amlodipine Besylate 5 Mg Tab) 10 mg PO DAILY [facility] Stop: 07/31/21 08:59 Last Admin: 07/18/21 10:38 Dose: 10 mg Documented by: Clonidine HCl (Clonidine Hcl 0.2 Mg/24 Hr Transderm Sys) 1 patch TD Fr@2200 [facility] Stop: 07/30/21 21:59 Last Admin: 07/14/21 22:20 Dose: 1 patch Documented by: Dextrose (Dextrose 50% 50 Ml Syringe) 25 - 50 ml IV UD PRN; Protocol PRN Reason: Hypoglycemia Protocol Stop: 07/30/21 20:44 Fluticasone/Vilanterol (Fluticasone/Vilanterol 100/25mcg 14 Puffs/Inhaler) 1 puffs INH DAILY [facility] Stop: 07/31/21 08:59 Last Admin: 07/19/21 09:30 Dose: 1 puffs Documented by: Gabapentin (Gabapentin 100 Mg Cap) 200 mg PO TID [facility] Stop: 07/31/21 08:59 Last Admin: 07/19/21 09:26 Dose: 200 mg Documented by: Glucagon (Glucagon For Inj 1 Mg Vial) 1 mg IM UD PRN; Protocol PRN Reason: Hypoglycemia Protocol Stop: 07/30/21 20:44 Glucagon (Glucagon For Inj 1 Mg Vial) 1 mg SQ UD PRN; Protocol PRN Reason: Hypoglycemia Protocol Stop: 07/30/21 23:01 Glucose (Glucose 40% Gel 15 Gm Tube) 15 - 30 gm PO UD PRN; Protocol PRN Reason: Hypoglycemia Protocol Stop: 07/30/21 20:44 Last Admin: 07/02/21 11:02 Dose: 15 gm Documented by: Glucose (Glucose 10 Tabs/Tube) 4 - 8 tabs PO UD PRN; Protocol PRN Reason: Hypoglycemia Protocol Stop: 07/30/21 20:44 Guaifenesin/Dextromethorphan (Guaifenesin/Dextrom Syrup 200mg/20mg 10ml Udc) 10 ml PO Q6H [facility] Stop: 08/09/21 09:29 Last Admin: 07/19/21 09:26 Dose: 10 ml Documented by: Heparin Sodium (Porcine) (Heparin Sod 5,000 Unit/0.5 Ml Vial) 5,000 units SQ Q12 [facility] Stop: 08/13/21 20:59 Last Admin: 07/19/21 09:43 Dose: 5,000 units Documented by: Promethazine HCl 12.5 mg/ (Sodium Chloride) 50.5 mls @ 202 mls/hr IV Q6H PRN PRN Reason: Nausea And Vomiting Stop: 07/30/21 23:01 Last Infusion: 07/16/21 21:27 Dose: Infused Documented by: Dextrose/Sodium Chloride (D5w And 1/4nss) 1,000 mls @ 0 mls/hr IV .Q0M [facility] Stop: 08/03/21 07:59 Last Infusion: 07/04/21 08:04 Dose: Infused Documented by: Insulin Aspart (Insulin Aspart Per Unit) 0 units SC ACHS [facility] Stop: 08/03/21 11:29 Last Admin: 07/19/21 09:42 Dose: 8 units Documented by: Insulin Glargine (Insulin Glargine Solostar 100 Units/Ml 3 Ml Pen) 3 units SC BID [facility]; Protocol Stop: 08/14/21 20:59 Last Admin: 07/19/21 09:32 Dose: 3 units Documented by: Levalbuterol HCl (Levalbuterol Hcl 1.25 Mg/3 Ml Neb) 1.25 mg NEB Q4H PRN; Protocol PRN Reason: Shortness Of Breath Or Wheezing Stop: 08/07/21 04:59 Last Admin: 07/15/21 07:28 Dose: 1.25 mg Documented by: Levetiracetam (Levetiracetam 500 Mg Tab) 500 mg PO BID [facility] Stop: 07/31/21 08:59 Last Admin: 07/19/21 09:26 Dose: 500 mg Documented by: Metoclopramide HCl (Metoclopramide Hcl 10 Mg Tablet) 10 mg PO TID [facility] Stop: 07/31/21 08:59 Last Admin: 07/19/21 09:25 Dose: 10 mg Documented by: Miscellaneous (Carbohydrates For Hypoglycemia ) 15 - 30 gm PO UD PRN PRN Reason: Hypoglycemia Treatment Stop: 07/30/21 20:44 Last Admin: 07/15/21 08:06 Dose: 15 gm Documented by: Carmencellaneous (Remove Clonidine Patch) 1 ea N/A Fr@2159 [facility] Stop: 07/30/21 21:58 Last Admin: 07/14/21 22:20 Dose: 1 ea Documented by: Miscellaneous (Check Clonidine Patch Placement) 1 ea N/A QS [facility] Stop: 07/31/21 00:00 Last Admin: 07/19/21 09:24 Dose: 1 ea Documented by: Miscellaneous Information (Pharmacy Glycemic Mgmt Consult) 1 ea N/A UD PRN PRN Reason: Consult Stop: 08/01/21 10:32 Oxycodone HCl (Oxycodone Hcl Ir 5 Mg Tab (Immediate Release)) 10 mg PO Q6 PRN PRN Reason: Pain Stop: 07/29/21 07:33 Last Admin: 07/18/21 22:24 Dose: 10 mg Documented by: Pantoprazole Sodium (Pantoprazole 40 Mg Tab) 40 mg PO BID [facility] Stop: 08/09/21 20:59 Last Admin: 07/19/21 09:25 Dose: 40 mg Documented by: Rosuvastatin Calcium (Rosuvastatin Calcium 20 Mg Tab) 20 mg PO DAILY [facility] Stop: 07/31/21 08:59 Last Admin: 07/19/21 09:25 Dose: 20 mg Documented by: Saccharomyces Boulardii (Saccharomyces Boulardii 250 Mg Cap) 250 mg PO DAILY [facility] Stop: 08/11/21 08:59 Last Admin: 07/19/21 09:25 Dose: 250 mg Documented by: (1) Diabetes Diabetes mellitus complication status: with other specified complication Diabetes mellitus type: type 1 Qualified Code(s): E10.69 - Type 1 diabetes mellitus with other specified complication (2) Chronic pain Chronic pain type: other chronic pain Qualified Code(s): G89.29 - Other chronic pain
[2021-07-19] MEDS: amLODIPine BESYLATE 5 MG TAB PO SCH (14:57)
--- NOTE | 2021-07-19 17:37 | Pulmonology Progress Note ---
Date of Service July 19, 2021 Assessment & Plan (1) Acute respiratory failure with hypoxia: Plan: Possible recovering pna and/or volume overload. Difficult to rule out inflammatory lung condition or lymphangitic spread of malignancy. No evidence of alveolar hemorrhage seen on bronchoscopy. Cell counts relatively unrevealing from BAL. No eosinophilia. Cytology from BAL without malignancy. "Mixed inflammation" on cyto from BAL. Will need follow up cxr in 4-6 weeks. (2) Multifocal pneumonia: Plan: Treated earlier by primary team with ertapenem. BAL cultures sent from the bronchoscopy. (3) Pulmonary edema: Plan: Currently managed by dialysis. (4) ESRD (end stage renal disease) on dialysis: Plan: Defer to renal team. On HD. Plan: Pulm to sign off. Call with questions. Admission and Anticipated Discharge Date Admission Date: June 30, 2021 Subjective Patient seen mid afternoon. Sitting up eating breakfast. Denies hemoptysis. Dyspnea slightly improved. Remains on low flow supplemental o2. Review of Systems Review of Systems: All systems reviewed & are unremarkable except as noted in Subjective Physical Exam Constitutional: Chronically ill appearing and weak Eyes: PERRL, conjunctivae normal, anicteric sclerae ENMT: external ear and nose normal, oropharynx normal Respiratory: Diffuse crackles and rhonchi. No accessory muscle use Cardiovascular: RRR, no murmur, no edema Gastrointestinal (Abdomen): normal bowel sounds, soft, nontender, no hepatosplenomegaly Musculoskeletal: no cyanosis or clubbing, extremities motor strength 5/5 Neurologic: No focal deficits Psychiatric: A+Ox3, euthymic affect Results & Data Results & Data ([facility]) Vital Signs (Past 12 Hours) Vital Signs Temp Pulse Pulse Resp BP BP BP 07/19/21 14:43 91 H 07/19/21 14:32 36.9 C 17 168/88 H 07/19/21 14:13 36.8 C 81 164/92 H 07/19/21 14:00 78 154/90 H 07/19/21 13:40 77 133/80 07/19/21 13:20 76 144/81 H 07/19/21 13:00 77 144/88 H 07/19/21 12:40 74 151/83 H 07/19/21 12:20 74 150/88 H 07/19/21 12:00 74 134/80 07/19/21 11:40 52 L 128/67 07/19/21 11:20 75 145/73 H 07/19/21 11:00 75 132/68 07/19/21 10:40 75 120/67 07/19/21 10:20 76 134/74 07/19/21 10:09 78 154/92 H 07/19/21 09:59 36.5 C 79 07/19/21 06:36 36.4 C L 73 18 146/80 H 07/19/21 06:20 72 07/19/21 05:38 85 Pulse Ox 07/19/21 14:43 07/19/21 14:32 90 07/19/21 14:13 07/19/21 14:00 07/19/21 13:40 07/19/21 13:20 07/19/21 13:00 07/19/21 12:40 07/19/21 12:20 07/19/21 12:00 07/19/21 11:40 07/19/21 11:20 07/19/21 11:00 07/19/21 10:40 07/19/21 10:20 07/19/21 10:09 07/19/21 09:59 07/19/21 06:36 90 07/19/21 06:20 07/19/21 05:38 PG Care Time/CCT Total # of Minutes Spent Total Time Spent with Patient: Total time spent is greater than 50% in coordination of care (as documented) at patient's floor/unit and/or counseling patient: Coding Level of Care Code 87955 Subseq Hosp Care Lvl 2 Diagnoses Acute respiratory failure with hypoxia J96.01 Multifocal pneumonia J18.9 Pulmonary edema J81.1 ESRD (end stage renal disease) on dialysis N18.6; Z99.2
--- NOTE | 2021-07-19 18:55 | Nephrology Progress Note ---
Date of Service July 19, 2021 Assessment & Plan (1) ESRD (end stage renal disease) on dialysis: Plan: Patient admitted with stage 2 oligoanuric acute kidney injury on advanced CKD 4 w/ baseline high risk for progression > now ESRD. ischemic ATN in setting of nausea and vomiting for several days on underlying advanced diabetic nephropathy. Patient also found to have aspiration pneumonia and more recently pulmonary edema. Creatinine on admission was 6.1 from a baseline of 3. Creatinine down to 5.7 after receiving IV fluids but worsened to 8s and w/ oligoanuria. Given history of metastatic cancer and of the multiple comorbidities, patient may not be a good candidate for dialysis. However he wishes to try and understands risks it may not go well after discussion w/ me; finds these preferable to no intervention. consent is on chart. Plan trial of HD 4-6 wks then reassess tolerance and discuss permanent vasc access at that time -Renally dose antibiotics for GFR less than 15 mL/min -Monitor renal function with daily BMP -TDC placed 07/04; first HD same day -Last HD on 07/19 w/ 4L UF; next HD on 07/21 >>admission request pending for [facility] under care of Dr. Barajas; pt originally asked for dialysis under care of Dr Lord at [facility]; but this is a 3 day weekly unit and he may need extra txs as OP > [facility] is 6d/wkly unit and closer to his home; appreciate case mgt asst >>some irregularities in the referral so far which will need to be sorted out; typically OP dialysis only requires HBV core and surface antigen prior to admission but unit asking for bales panel of hep studies which are sendout labs and will take several days to come back; also the accepting occupational therapy department chair at the outpatient facility (not the referring occupational therapy department chair inpatient) signs the orders > so unit needs to find Dr Barajas to write and sign orders -continue aggressive UF, frequent txs for now -no PROSPER d/t cancer hx > monitor anemia frequently as he is transfusion dependent (2) Primary cancer of left lung metastatic to other site: Plan: Patient is status post resection and radiation to the ninth rib. not a candidate for further chemo per oncology. upcomin gPET a few weeks after d/c; multple mets noted on 07/03 CT -fact that he's not a candidate for further chemo means no mediport needed, at least not for now (3) Pulmonary edema: Plan: >>he is having excessive plm edema and question remains why >> appreciate pulm recs Admission and Anticipated Discharge Date Admission Date: June 30, 2021 Subjective tolerated HD well; pain w/ acceptable control; no N; cough stable as is dypsnea when I evaluated pt at 1545 Review of Systems Review of Systems: All systems reviewed & are unremarkable except as noted in Subjective Physical Exam Constitutional: well developed and well nourished; no acute distress Eyes: EOM intact bilaterally ENMT: Ears: no external ear abnormality Nose: no external nose abnormality Mouth: + dry oral mucous membranes Neck: no nuchal rigidity Respiratory: normal respiratory effort Auscultation: + diminished lung sounds Cardiovascular: RRR, no murmur, no edema Gastrointestinal (Abdomen): Inspection/Auscultation: normal bowel sounds Percussion/Palpation: abdomen soft; abdomen nontender Musculoskeletal: Extremities: strength 5/5 throughout Skin: no rashes, warm and dry Neurologic: villarreal, fluent speech, no tremor Psychiatric: Orientation: oriented x 3 Results & Data ([facility]) Vital Signs (Past 12 Hours) Vital Signs Temp Pulse Pulse Resp BP BP BP 07/19/21 14:43 91 H 07/19/21 14:32 36.9 C 17 168/88 H 07/19/21 14:13 36.8 C 81 164/92 H 07/19/21 14:00 78 154/90 H 07/19/21 13:40 77 133/80 07/19/21 13:20 76 144/81 H 07/19/21 13:00 77 144/88 H 07/19/21 12:40 74 151/83 H 07/19/21 12:20 74 150/88 H 07/19/21 12:00 74 134/80 07/19/21 11:40 52 L 128/67 07/19/21 11:20 75 145/73 H 07/19/21 11:00 75 132/68 07/19/21 10:40 75 120/67 07/19/21 10:20 76 134/74 07/19/21 10:09 78 154/92 H 07/19/21 09:59 36.5 C 79 Pulse Ox 07/19/21 14:43 07/19/21 14:32 90 07/19/21 14:13 07/19/21 14:00 07/19/21 13:40 07/19/21 13:20 07/19/21 13:00 07/19/21 12:40 07/19/21 12:20 07/19/21 12:00 07/19/21 11:40 07/19/21 11:20 07/19/21 11:00 07/19/21 10:40 07/19/21 10:20 07/19/21 10:09 07/19/21 09:59 Laboratory Results 07/19/21 08:09 07/19/21 08:09
[2021-07-20] MEDS: guaiFENesin/DEXTROM SYRUP 200MG/20MG 10ML UDC PO SCH ×4 (02:45→21:54)
[2021-07-20] MEDS: oxyCODONE HCL IR 5 MG TAB (IMMEDIATE RELEASE) PO PRN ×2 (07:26→22:11)
[2021-07-20] MEDS: levETIRAcetam 500 MG TAB PO SCH ×2 (08:32→21:52)
[2021-07-20] MEDS: GABAPENTIN 100 MG CAP PO SCH ×3 (08:32→21:50)
[2021-07-20] MEDS: METOCLOPRAMIDE HCL 10 MG TABLET PO SCH ×3 (08:33→21:53)
[2021-07-20] MEDS: amLODIPine BESYLATE 5 MG TAB PO SCH (08:33)
[2021-07-20] MEDS: PANTOprazole 40 MG TAB PO SCH ×2 (08:33→21:53)
[2021-07-20] MEDS: HEPARIN SOD 5,000 UNIT/0.5 ML VIAL SQ SCH ×2 (08:34→21:50)
[2021-07-20] MEDS: ROSUVASTATIN CALCIUM 20 MG TAB PO SCH (08:34)
[2021-07-20] MEDS: FLUTICASONE/VILANTEROL 100/25MCG 14 PUFFS/INHALER INH SCH (08:34)
--- NOTE | 2021-07-20 08:38 | Nephrology Progress Note ---
Date of Service July 20, 2021 Assessment & Plan (1) ESRD (end stage renal disease) on dialysis: Plan: Patient admitted with stage 2 oligoanuric acute kidney injury on advanced CKD 4 w/ baseline high risk for progression > now ESRD. ischemic ATN in setting of nausea and vomiting for several days on underlying advanced diabetic nephropathy. Patient also found to have aspiration pneumonia and more recently pulmonary edema. Creatinine on admission was 6.1 from a baseline of 3. Creatinine down to 5.7 after receiving IV fluids but worsened to 8s and w/ oligoanuria. Given history of metastatic cancer and of the multiple comorbidities, patient may not be a good candidate for dialysis. However he wishes to try and understands risks it may not go well after discussion w/ me; finds these preferable to no intervention. consent is on chart. Plan trial of HD 4-6 wks then reassess tolerance and discuss permanent vasc access at that time -Renally dose antibiotics for GFR less than 15 mL/min -Monitor renal function with daily BMP -TDC placed 07/04; first HD same day -Last HD on 07/19 w/ 4L UF; next HD on 07/21 >>admission request pending for [facility] under care of Dr. Barajas; pt originally asked for dialysis under care of Dr Lord at [facility]; but this is a 3 day weekly unit and he may need extra txs as OP > [facility] is 6d/wk[facility] unit and MUCH closer to pt's home; appreciate case mgt asst >>some roadblocks in the [place] dialysis referral so far which will need to be sorted out; typically OP dialysis only requires HBV core and surface antigen prior to admission but unit asking for bales panel of hep studies which are sendout labs and will take several days to come back - hep C studies are the concern : have request pending with [place] unit to see if they can simply treat him as though he were hep C positive for the week or so that it will take for these studies to finalize; also confirmed w/ unit they do NOT need me (the inpatient referring carton machine operator) to sign outpatient orders; what they need is to have the last set of inpatient orders faxed to the unit > leaving that to case management to do -continue aggressive UF for now; has done ok w/ only 3 txs this week -no PROSPER d/t cancer hx > monitor anemia frequently as he is transfusion dependent (2) Primary cancer of left lung metastatic to other site: Plan: Patient is status post resection and radiation to the ninth rib. not a candidate for further chemo per oncology. upcomin gPET a few weeks after d/c; multple mets noted on 07/03 CT -fact that he's not a candidate for further chemo means no mediport needed, at least not for now (3) Pulmonary edema: Plan: >>he is having excessive plm edema and question remains why >> appreciate pulm recs; fluid status more stable/settled this week though still overloaded Admission and Anticipated Discharge Date Admission Date: June 30, 2021 Subjective No acute interval clinical events. Denies nausea worsening dyspnea, chest pain abdominal pain or musculoskeletal pain. Continues to pass urine without i ncident. No edema. Review of Systems Review of Systems: All systems reviewed & are unremarkable except as noted in Subjective Physical Exam Constitutional: well developed and well nourished; no acute distress Eyes: EOM intact bilaterally ENMT: Ears: no external ear abnormality Nose: no external nose abnormality Mouth: + dry oral mucous membranes Neck: no nuchal rigidity Respiratory: normal respiratory effort Auscultation: + diminished lung sounds Cardiovascular: RRR, no murmur, no edema Gastrointestinal (Abdomen): Inspection/Auscultation: normal bowel sounds Percussion/Palpation: abdomen soft; abdomen nontender Musculoskeletal: Extremities: strength 5/5 throughout Skin: no rashes, warm and dry Neurologic: Bilateral ankle braces in place Psychiatric: Orientation: oriented x 3 Results & Data ([facility]) Vital Signs (Past 12 Hours) Vital Signs Temp Pulse Pulse Resp BP Pulse Ox 07/20/21 06:48 36.7 C 75 20 136/81 94 07/20/21 06:19 84 07/20/21 03:11 37.4 C 73 20 113/72 92 07/19/21 23:12 37.0 C 77 20 116/70 95 07/19/21 22:19 75 Laboratory Results 07/19/21 08:09 07/19/21 08:09
[2021-07-20] MEDS: INSULIN GLARGINE SOLOSTAR 100 UNITS/ML 3 ML PEN SC SCH ×2 (08:44→21:50)
[2021-07-20] MEDS: INSULIN ASPART PER UNIT SC SCH ×4 (08:51→22:00)
[2021-07-20] MEDS: CHECK CLONIDINE PATCH PLACEMENT SCH ×3 (08:55→23:31)
[2021-07-20] MEDS: SACCHAROMYCES BOULARDII 250 MG CAP PO SCH (09:46)
--- NOTE | 2021-07-20 11:13 | Pharmacy Report ---
Pharmacy Glycemic Short Note 2 - Date of Service July 20, 2021 - Glycemic Short BSG Results (Last 24 hours): 07/19/21 07/19/21 07/19/21 11:28 16:30 20:06 POC Glucose 163 H 246 H 284 H 07/20/21 07/20/21 07:27 07:28 POC Glucose 363 H* 314 H* OUTPATIENT ANTIDIABETIC REGIMEN: * Lantus 7 units SQ QPM * Humulog sliding scale * HbA1c: 9.0% (06/30/21) -- unreliable in the setting of ESRD, now on HD ASSESSMENT: 07/20/21 * BSGs yesterday were [phone] mg/dL. Fasting this morning is 314 mg/dL. Per report, patient had some regular soda in room overnight. * Will continue insulin regimen as this regimen has not promoted hypoglycemia and does not overcorrect patient. 07/18/21 * Patient was well controlled yesterday with BSGs of 168, 174, 155, 110 mg/dL. He received 6 units of Lantus + 16 units of novolog. * He developed severe hyperglycemia overnight (369 @ midnight) as well as elevated fasting BSG (316). Cause of hyperglycemia is unknown. Patient was NPO during this time and there has been no change to basal insulin in 48 hours. * He had a bronchoscopy with bronchial alveolar lavage procedure this morning. Orders to resume diet with lunch. * Current novolog parameters appear to be working well. 07/17/21 * Patient's BSGs yesterday were [phone] mg/dL and fasting today is 168 mg/dL. * Patient's BSGs starting to stable with initiation of twice daily Lantus. * Continue current insulin parameters. 07/15 * Blood sugars 54-310mg/dl over last 24 hours, with hypoglycemia this morning requiring two doses of 15g CHO to bring up to 77mg/dl, and pt feeling hypo * Change basal to BID dosing to help w/ hypoglycemia, pt seemed to do better 07/06-07/10 when dose was split * No further changes at this time 07/13 * BSGs labile over past 24 hours, ranging 81-323 mg/dL * Given BSG stability for that and patient propensity for labile BSGs, hesitant to make any changes today * Hemodialysis yesterday * If BSGs remain poorly controlled, consider changing back to BID Lantus dosing 07/11 * BSGs have been stable past 24 hours. * Pt transitioned back to PM Lantus dosing today. * No further adjustment required at this time. PLAN FOR INPATIENT GLYCEMIC CONTROL: * Basal insulin * Lantus 3 units SQ qAM, 3 units SQ qPM * Bolus insulin * NovoLog per scale ACHS or Q6hrs while NPO * Goal Range: Low 120 mg/dL - High 160 mg/dL * Correction Factor: 55 mg/dL/unit * Nutritional / Prandial insulin per carb ratio of 1 unit per 18 grams CHO consumed
--- NOTE | 2021-07-20 14:58 | Hospitalist Progress Note ---
Date of Service July 20, 2021 Assessment & Plan (1) Acute respiratory failure with hypoxia: Plan: Most likely due to pulmonary edema, aspiration pneumonitis -CTA chest 07/11-- bilateral pleural effusion, patchy opacities at bilateral bases, no PE -s/p 1 unit pRBC 07/11 at dialysis -Patient was on 2L of oxygen then required 15 L via oxymask then BIPAP (07/11) now weaned down to 2 L NC -Repeat CXR 07/12 again shows volume overload. -Repeat CXR 07/15- again shows volume overload -CT chest 07/16- shows worsening bilateral asymmetrical interstitial opacities concerning for pulmonary edema. On exam does NOT appear volume overloaded. -Uncertain etiology for his worsening interstitial opacities. Pulm consulted 07/17. Bronchoscopy 07/18 no alveolar hemorrhage, BAL cytology negative for malignancy, no eosinophilia, unrevealing cell counts- shows mixed inflammation. Recommended repeat CXR in 4-6 weeks -2 step closer done- he will need oxygen at discharge- CM following (2) Acute on chronic anemia: Plan: -likely due to chronic kidney disease, Hb 6.6->8.7 s/p 1 unit pRBC -No evidence of active bleed -labwork on dialysis days only (3) Multifocal pneumonia: Plan: -Patient finished 7 days of ertapenem previously -after episode of vomiting and concern for aspiration 07/11, he was placed on cefepime and flagyl. This was discontinued and he was placed back on Ertapenm 07/12-07/14 -Patient unable to get zosyn due to reported history of PCN allergy. -no cough, no fever, or leukocytosis. Procalcitonin neg x 3--> antibiotics were discontinued 07/14. He has remained stable off antibiotics (4) Acute kidney injury (IVAN) with acute tubular necrosis (ATN): Plan: -Acute kidney injury due to ischemic ATN in setting of nausea and vomiting from gastroparesis, now with progression to ESRD requiring dialysis. Started on Dialysis here -Management per Nephrology, next dialysis session is scheduled for tomorrow. -OP dialysis has been set up per at [facility] in [place] but with frequency of dialysis he has required here, he may need more than 3x weekly dialysis. So Nephrology has reached out to for him to get set up at [place] (5) Diabetic gastroparesis: Plan: s/p Gastric stimulator Patient reports chronic nausea and constipation Patient counseled on small meals already on promotility agents (6) Diabetes: Plan: Hypoglycemia this admission. Type I diabetes, glycemic pharmacy for management. (7) Primary cancer of left lung metastatic to other site: Plan: -Recently finished radiation treatments and is scheduling for a PET scan in 1 month. New metastatic disease on left lung seen. Results were shared with his oncologist and with patient. OP follow up with Oncology. -Patient requesting a port be placed to reduce blood draws. While here, will reduce lab draws to dialysis days (can be drawn at dialysis). Will hold off on port placement--will defer this to Oncology if further plans for chemotherapy (8) HTN (hypertension): Plan: chronic, stable, lisinopril on hold in setting of worsening renal failure. Continue amlodipine 10 mg daily and Catapres TTS weekly patch per home regimen (9) Chronic pain: Plan: Currently managed with gabapentin 200 mg p.o. 3 times daily which is a reduction from his home dose of 400 mg p.o. 3 times daily in setting of renal failure. Refusing APAP, has oxy PRN if needed and he is aware it is there if he needs it. will give a dose of iv dilaudid for exacerbation of pain episode. -also continued on oxycodone 10mg Q 6PRN (10) Seizure disorder: Plan: Chronic, stable, no evidence of seizure activity. Continue Keppra per home regimen at reduced dose of 500 mg p.o. 3 times daily in setting of renal failure (11) DVT prophylaxis: Plan: Resume Sc heparin Full code Plan: Dispo- Discharge on Saturday. Per CM, OP dialysis center at [place] working with his insurance auth and likely won't be until tomorrow. Plan to get dialysis in house tomorrow followed by OP dialysis on Saturday. He will need oxygen at discharge as well as refill of his home medications Update- He didnot want me to update his family Admission and Anticipated Discharge Date Admission Date: June 30, 2021 Subjective No new issues. Feeling better. Asking when he can go home. States he will need refills upon discharge. Continues to have intermittent pain and cough episodes. Overall stable and improving. Physical Exam Physical Exam: General: sitting in bed, on NC, not in distress HEENT: EOMI, FANTASMA, MMM Chest: Permcath site clear, Fair breath sounds bilaterally CVS: Regular rate and rhythm, normal heart sounds, no murmur Abdomen: Soft, non tender, not distended, normal bowel sounds Neuro: Awake, alert, conversing Extremities: edema trace Results & Data Results & Data ([facility]) Vital Signs (Past 12 Hours) Vital Signs Temp Pulse Pulse Pulse Pulse Pulse Pulse 07/20/21 14:39 36.3 C L 78 07/20/21 09:52 84 81 79 81 07/20/21 06:48 36.7 C 75 07/20/21 06:19 84 07/20/21 03:11 37.4 C 73 Resp Resp Resp Resp Resp BP Pulse Ox 07/20/21 14:39 18 115/76 93 07/20/21 09:52 24 26 H 22 22 07/20/21 06:48 20 136/81 94 07/20/21 06:19 07/20/21 03:11 20 113/72 92 Pulse Ox Pulse Ox Pulse Ox Pulse Ox 07/20/21 14:39 07/20/21 09:52 94 86 L 98 84 L 07/20/21 06:48 07/20/21 06:19 07/20/21 03:11 Medications Administered Current Inpatient Medications Acetaminophen (Acetaminophen 325 Mg Tab) 650 mg PO Q4H PRN PRN Reason: Pain or Fever Stop: 07/30/21 23:01 Amlodipine Besylate (Amlodipine Besylate 5 Mg Tab) 10 mg PO DAILY [facility] Stop: 07/31/21 08:59 Last Admin: 07/20/21 08:33 Dose: 10 mg Documented by: Clonidine HCl (Clonidine Hcl 0.2 Mg/24 Hr Transderm Sys) 1 patch TD Fr@2200 [facility] Stop: 07/30/21 21:59 Last Admin: 07/14/21 22:20 Dose: 1 patch Documented by: Dextrose (Dextrose 50% 50 Ml Syringe) 25 - 50 ml IV UD PRN; Protocol PRN Reason: Hypoglycemia Protocol Stop: 07/30/21 20:44 Fluticasone/Vilanterol (Fluticasone/Vilanterol 100/25mcg 14 Puffs/Inhaler) 1 puffs INH DAILY [facility] Stop: 07/31/21 08:59 Last Admin: 07/20/21 08:34 Dose: 1 puffs Documented by: Gabapentin (Gabapentin 100 Mg Cap) 200 mg PO TID [facility] Stop: 07/31/21 08:59 Last Admin: 07/20/21 14:27 Dose: 200 mg Documented by: Glucagon (Glucagon For Inj 1 Mg Vial) 1 mg IM UD PRN; Protocol PRN Reason: Hypoglycemia Protocol Stop: 07/30/21 20:44 Glucagon (Glucagon For Inj 1 Mg Vial) 1 mg SQ UD PRN; Protocol PRN Reason: Hypoglycemia Protocol Stop: 07/30/21 23:01 Glucose (Glucose 40% Gel 15 Gm Tube) 15 - 30 gm PO UD PRN; Protocol PRN Reason: Hypoglycemia Protocol Stop: 07/30/21 20:44 Last Admin: 07/02/21 11:02 Dose: 15 gm Documented by: Glucose (Glucose 10 Tabs/Tube) 4 - 8 tabs PO UD PRN; Protocol PRN Reason: Hypoglycemia Protocol Stop: 07/30/21 20:44 Guaifenesin/Dextromethorphan (Guaifenesin/Dextrom Syrup 200mg/20mg 10ml Udc) 10 ml PO Q6H [facility] Stop: 08/09/21 09:29 Last Admin: 07/20/21 08:31 Dose: 10 ml Documented by: Heparin Sodium (Porcine) (Heparin Sod 5,000 Unit/0.5 Ml Vial) 5,000 units SQ Q12 [facility] Stop: 08/13/21 20:59 Last Admin: 07/20/21 08:34 Dose: 5,000 units Documented by: Promethazine HCl 12.5 mg/ (Sodium Chloride) 50.5 mls @ 202 mls/hr IV Q6H PRN PRN Reason: Nausea And Vomiting Stop: 07/30/21 23:01 Last Infusion: 07/16/21 21:27 Dose: Infused Documented by: Dextrose/Sodium Chloride (D5w And 1/4nss) 1,000 mls @ 0 mls/hr IV .Q0M [facility] Stop: 08/03/21 07:59 Last Infusion: 07/04/21 08:04 Dose: Infused Documented by: Insulin Aspart (Insulin Aspart Per Unit) 0 units SC ACHS [facility] Stop: 08/03/21 11:29 Last Admin: 07/20/21 12:22 Dose: 6 units Documented by: Insulin Glargine (Insulin Glargine Solostar 100 Units/Ml 3 Ml Pen) 3 units SC BID [facility]; Protocol Stop: 08/14/21 20:59 Last Admin: 07/20/21 08:44 Dose: 3 units Documented by: Levalbuterol HCl (Levalbuterol Hcl 1.25 Mg/3 Ml Neb) 1.25 mg NEB Q4H PRN; Protocol PRN Reason: Shortness Of Breath Or Wheezing Stop: 08/07/21 04:59 Last Admin: 07/15/21 07:28 Dose: 1.25 mg Documented by: Levetiracetam (Levetiracetam 500 Mg Tab) 500 mg PO BID [facility] Stop: 07/31/21 08:59 Last Admin: 07/20/21 08:32 Dose: 500 mg Documented by: Metoclopramide HCl (Metoclopramide Hcl 10 Mg Tablet) 10 mg PO TID [facility] Stop: 07/31/21 08:59 Last Admin: 07/20/21 14:27 Dose: 10 mg Documented by: Miscellaneous (Carbohydrates For Hypoglycemia ) 15 - 30 gm PO UD PRN PRN Reason: Hypoglycemia Treatment Stop: 07/30/21 20:44 Last Admin: 07/15/21 08:06 Dose: 15 gm Documented by: Miscellaneous (Remove Clonidine Patch) 1 ea N/A Fr@1537 [facility] Stop: 07/30/21 21:58 Last Admin: 07/14/21 22:20 Dose: 1 ea Documented by: Miscellaneous (Check Clonidine Patch Placement) 1 ea N/A QS [facility] Stop: 07/31/21 00:00 Last Admin: 07/20/21 08:55 Dose: 1 ea Documented by: Miscellaneous Information (Pharmacy Glycemic Mgmt Consult) 1 ea N/A UD PRN PRN Reason: Consult Stop: 08/01/21 10:32 Oxycodone HCl (Oxycodone Hcl Ir 5 Mg Tab (Immediate Release)) 10 mg PO Q6 PRN PRN Reason: Pain Stop: 07/29/21 07:33 Last Admin: 07/20/21 07:26 Dose: 10 mg Documented by: Pantoprazole Sodium (Pantoprazole 40 Mg Tab) 40 mg PO BID [facility] Stop: 08/09/21 20:59 Last Admin: 07/20/21 08:33 Dose: 40 mg Documented by: Rosuvastatin Calcium (Rosuvastatin Calcium 20 Mg Tab) 20 mg PO DAILY [facility] Stop: 07/31/21 08:59 Last Admin: 07/20/21 08:34 Dose: 20 mg Documented by: Saccharomyces Boulardii (Saccharomyces Boulardii 250 Mg Cap) 250 mg PO DAILY [facility] Stop: 08/11/21 08:59 Last Admin: 07/20/21 09:46 Dose: 250 mg Documented by: (1) Diabetes Diabetes mellitus complication status: with other specified complication Diabetes mellitus type: type 1 Qualified Code(s): E10.69 - Type 1 diabetes mellitus with other specified complication (2) Chronic pain Chronic pain type: other chronic pain Qualified Code(s): G89.29 - Other chronic pain
[2021-07-21] MEDS: guaiFENesin/DEXTROM SYRUP 200MG/20MG 10ML UDC PO SCH ×4 (03:03→21:00)
[2021-07-21] MEDS: LEVALBUTEROL HCL 1.25 MG/3 ML NEB NEB PRN (05:01)
[2021-07-21 05:05] LABS: Hepatitis B Core Antibody Total NON-REACTIVE (NON-REACTIVE)
[2021-07-21] MEDS ORDERED: SODIUM CHLORIDE 0.9% 1000ML 1,000 ML IV PRN (07:44)
[2021-07-21] MEDS: CHECK CLONIDINE PATCH PLACEMENT SCH ×3 (07:53→21:02)
[2021-07-21] MEDS ORDERED: HEPARIN SOD (PORCINE) 1000 UNIT/ML IV SCH (08:00)
[2021-07-21] MEDS: amLODIPine BESYLATE 5 MG TAB PO SCH (08:03)
[2021-07-21] MEDS: GABAPENTIN 100 MG CAP PO SCH ×3 (08:03→20:57)
[2021-07-21] MEDS: levETIRAcetam 500 MG TAB PO SCH ×2 (08:03→20:59)
[2021-07-21] MEDS: SACCHAROMYCES BOULARDII 250 MG CAP PO SCH (08:04)
[2021-07-21] MEDS: METOCLOPRAMIDE HCL 10 MG TABLET PO SCH ×3 (08:04→20:59)
[2021-07-21] MEDS: FLUTICASONE/VILANTEROL 100/25MCG 14 PUFFS/INHALER INH SCH (08:04)
[2021-07-21] MEDS: ROSUVASTATIN CALCIUM 20 MG TAB PO SCH (08:04)
[2021-07-21] MEDS: PANTOprazole 40 MG TAB PO SCH ×2 (08:04→21:00)
[2021-07-21] MEDS: HEPARIN SOD 5,000 UNIT/0.5 ML VIAL SQ SCH ×2 (08:04→20:57)
[2021-07-21] MEDS: oxyCODONE HCL IR 5 MG TAB (IMMEDIATE RELEASE) PO PRN ×2 (08:05→15:00)
[2021-07-21] MEDS: INSULIN GLARGINE SOLOSTAR 100 UNITS/ML 3 ML PEN SC SCH ×2 (08:17→20:58)
[2021-07-21] MEDS: INSULIN ASPART PER UNIT SC SCH ×4 (08:20→21:34)
--- NOTE | 2021-07-21 12:51 | Hospitalist Progress Note ---
Date of Service July 21, 2021 Assessment & Plan (1) Acute respiratory failure with hypoxia: Plan: Most likely due to pulmonary edema, aspiration pneumonitis -CTA chest 07/11-- bilateral pleural effusion, patchy opacities at bilateral bases, no PE -s/p 1 unit pRBC 07/11 at dialysis -Patient was on 2L of oxygen then required 15 L via oxymask then BIPAP (07/11) now weaned down to 2 L NC -Repeat CXR 07/12 again shows volume overload. -Repeat CXR 07/15- again shows volume overload -CT chest 07/16- shows worsening bilateral asymmetrical interstitial opacities concerning for pulmonary edema. On exam does NOT appear volume overloaded. -Uncertain etiology for his worsening interstitial opacities. Pulm consulted 07/17. Bronchoscopy 07/18 no alveolar hemorrhage, BAL cytology negative for malignancy, no eosinophilia, unrevealing cell counts- shows mixed inflammation. Recommended repeat CXR in 4-6 weeks -2 step closer done- oxygen will be arranged for discharge - Ordered Flutter valve (2) Acute on chronic anemia: Plan: -likely due to chronic kidney disease, Hb 6.6->8.7 s/p 1 unit pRBC -No evidence of active bleed -labwork on dialysis days only (3) Multifocal pneumonia: Plan: -Patient finished 7 days of ertapenem previously -after episode of vomiting and concern for aspiration 07/11, he was placed on cefepime and flagyl. This was discontinued and he was placed back on Ertapenm 07/12-07/14 -Patient unable to get zosyn due to reported history of PCN allergy. -no cough, no fever, or leukocytosis. Procalcitonin neg x 3--> antibiotics were discontinued 07/14. He has remained stable off antibiotics (4) Acute kidney injury (IVAN) with acute tubular necrosis (ATN): Plan: -Acute kidney injury due to ischemic ATN in setting of nausea and vomiting from gastroparesis, now with progression to ESRD requiring dialysis. Started on Dialysis here -Management per Nephrology, next dialysis session is scheduled for tomorrow. -OP dialysis has been set up per CM at [facility] in [place] but with frequency of dialysis he has required here, he may need more than 3x weekly dialysis. So Nephrology has reached out to for him to get set up at [place] (5) Diabetic gastroparesis: Plan: s/p Gastric stimulator Patient reports chronic nausea and constipation Patient counseled on small meals already on promotility agents (6) Diabetes: Plan: Hypoglycemia this admission. Type I diabetes, glycemic pharmacy for management. (7) Primary cancer of left lung metastatic to other site: Plan: -Recently finished radiation treatments and is scheduling for a PET scan in 1 month. New metastatic disease on left lung seen. Results were shared with his oncologist and with patient. OP follow up with Oncology. -Patient requesting a port be placed to reduce blood draws. While here, will reduce lab draws to dialysis days (can be drawn at dialysis). Will hold off on port placement--will defer this to Oncology if further plans for chemotherapy (8) HTN (hypertension): Plan: chronic, stable, lisinopril on hold in setting of worsening renal failure. Continue amlodipine 10 mg daily and Catapres TTS weekly patch per home regimen (9) Chronic pain: Plan: Currently managed with gabapentin 200 mg p.o. 3 times daily which is a reduction from his home dose of 400 mg p.o. 3 times daily in setting of renal failure. Refusing APAP, has oxy PRN if needed and he is aware it is there if he needs it. will give a dose of iv dilaudid for exacerbation of pain episode. -also continued on oxycodone 10mg Q 6PRN (10) Seizure disorder: Plan: Chronic, stable, no evidence of seizure activity. Continue Keppra per home regimen at reduced dose of 500 mg p.o. 3 times daily in setting of renal failure (11) DVT prophylaxis: Plan: Sc heparin Full code Plan: Dispo- Dialysis today. Discharge tomorrow with home oxygen. Dialyisis OP at [facility] on Saturday Admission and Anticipated Discharge Date Admission Date: June 30, 2021 Subjective No new issues. has intermittent cough and pain. Feels better. Looking forward to going home tomorrow. Physical Exam Physical Exam: General: sitting in bed, on NC, not in distress HEENT: EOMI, FANTASMA, MMM Chest: Permcath site clear, Fair breath sounds bilaterally CVS: Regular rate and rhythm, normal heart sounds, no murmur Abdomen: Soft, non tender, not distended, normal bowel sounds Neuro: Awake, alert, conversing Extremities: edema trace Results & Data Results & Data ([facility]) Vital Signs (Past 12 Hours) Vital Signs Temp Pulse Resp BP BP Pulse Ox 07/21/21 12:07 36.5 C 84 16 124/72 97 07/21/21 06:55 36.9 C 90 20 117/60 93 07/21/21 05:01 82 18 93 07/21/21 03:00 36.7 C 83 20 136/75 94 Medications Administered Current Inpatient Medications Acetaminophen (Acetaminophen 325 Mg Tab) 650 mg PO Q4H PRN PRN Reason: Pain or Fever Stop: 07/30/21 23:01 Amlodipine Besylate (Amlodipine Besylate 5 Mg Tab) 10 mg PO DAILY [facility] Stop: 07/31/21 08:59 Last Admin: 07/21/21 08:03 Dose: 10 mg Documented by: Clonidine HCl (Clonidine Hcl 0.2 Mg/24 Hr Transderm Sys) 1 patch TD Fr@2200 [facility] Stop: 07/30/21 21:59 Last Admin: 07/14/21 22:20 Dose: 1 patch Documented by: Dextrose (Dextrose 50% 50 Ml Syringe) 25 - 50 ml IV UD PRN; Protocol PRN Reason: Hypoglycemia Protocol Stop: 07/30/21 20:44 Fluticasone/Vilanterol (Fluticasone/Vilanterol 100/25mcg 14 Puffs/Inhaler) 1 puffs INH DAILY [facility] Stop: 07/31/21 08:59 Last Admin: 07/21/21 08:04 Dose: 1 puffs Documented by: Gabapentin (Gabapentin 100 Mg Cap) 200 mg PO TID [facility] Stop: 07/31/21 08:59 Last Admin: 07/21/21 08:03 Dose: 200 mg Documented by: Glucagon (Glucagon For Inj 1 Mg Vial) 1 mg IM UD PRN; Protocol PRN Reason: Hypoglycemia Protocol Stop: 07/30/21 20:44 Glucagon (Glucagon For Inj 1 Mg Vial) 1 mg SQ UD PRN; Protocol PRN Reason: Hypoglycemia Protocol Stop: 07/30/21 23:01 Glucose (Glucose 40% Gel 15 Gm Tube) 15 - 30 gm PO UD PRN; Protocol PRN Reason: Hypoglycemia Protocol Stop: 07/30/21 20:44 Last Admin: 07/02/21 11:02 Dose: 15 gm Documented by: Glucose (Glucose 10 Tabs/Tube) 4 - 8 tabs PO UD PRN; Protocol PRN Reason: Hypoglycemia Protocol Stop: 07/30/21 20:44 Guaifenesin/Dextromethorphan (Guaifenesin/Dextrom Syrup 200mg/20mg 10ml Udc) 10 ml PO Q6H [facility] Stop: 08/09/21 09:29 Last Admin: 07/21/21 08:04 Dose: 10 ml Documented by: Heparin Sodium (Porcine) (Heparin Sod 5,000 Unit/0.5 Ml Vial) 5,000 units SQ Q12 [facility] Stop: 08/13/21 20:59 Last Admin: 07/21/21 08:04 Dose: 5,000 units Documented by: Heparin Sodium (Porcine) (Heparin Sod (Porcine) 1000 Unit/Ml) 1,000 units IV TODAY@0800 [facility] Stop: 07/21/21 23:59 Heparin Sodium (Porcine) (Heparin Sod (Porcine) 1000 Unit/Ml) 400 units IV TODAY@0800,0900,1000 [facility] Stop: 07/21/21 23:59 Promethazine HCl 12.5 mg/ (Sodium Chloride) 50.5 mls @ 202 mls/hr IV Q6H PRN PRN Reason: Nausea And Vomiting Stop: 07/30/21 23:01 Last Infusion: 07/16/21 21:27 Dose: Infused Documented by: Dextrose/Sodium Chloride (D5w And 1/4nss) 1,000 mls @ 0 mls/hr IV .Q0M [facility] Stop: 08/03/21 07:59 Last Infusion: 07/04/21 08:04 Dose: Infused Documented by: Sodium Chloride (Nss 1000ml) 1,000 mls @ 0 mls/hr IV .Q0M PRN PRN Reason: For Hemodialysis Use ONLY Stop: 07/21/21 13:43 Insulin Aspart (Insulin Aspart Per Unit) 0 units SC ACHS [facility] Stop: 08/03/21 11:29 Last Admin: 07/21/21 08:20 Dose: 8 units Documented by: Insulin Glargine (Insulin Glargine Solostar 100 Units/Ml 3 Ml Pen) 3 units SC BID [facility]; Protocol Stop: 08/14/21 20:59 Last Admin: 07/21/21 08:17 Dose: 3 units Documented by: Levalbuterol HCl (Levalbuterol Hcl 1.25 Mg/3 Ml Neb) 1.25 mg NEB Q4H PRN; Protocol PRN Reason: Shortness Of Breath Or Wheezing Stop: 08/07/21 04:59 Last Admin: 07/21/21 05:01 Dose: 1.25 mg Documented by: Levetiracetam (Levetiracetam 500 Mg Tab) 500 mg PO BID [facility] Stop: 07/31/21 08:59 Last Admin: 07/21/21 08:03 Dose: 500 mg Documented by: Metoclopramide HCl (Metoclopramide Hcl 10 Mg Tablet) 10 mg PO TID [facility] Stop: 07/31/21 08:59 Last Admin: 07/21/21 08:04 Dose: 10 mg Documented by: Miscellaneous (Carbohydrates For Hypoglycemia ) 15 - 30 gm PO UD PRN PRN Reason: Hypoglycemia Treatment Stop: 07/30/21 20:44 Last Admin: 07/15/21 08:06 Dose: 15 gm Documented by: Miscellaneous (Remove Clonidine Patch) 1 ea N/A Fr@2159 [facility] Stop: 07/30/21 21:58 Last Admin: 07/14/21 22:20 Dose: 1 ea Documented by: Miscellaneous (Check Clonidine Patch Placement) 1 ea N/A QS [facility] Stop: 07/31/21 00:00 Last Admin: 07/21/21 07:53 Dose: 1 ea Documented by: Miscellaneous Information (Pharmacy Glycemic Mgmt Consult) 1 ea N/A UD PRN PRN Reason: Consult Stop: 08/01/21 10:32 Oxycodone HCl (Oxycodone Hcl Ir 5 Mg Tab (Immediate Release)) 10 mg PO Q6 PRN PRN Reason: Pain Stop: 07/29/21 07:33 Last Admin: 07/21/21 08:05 Dose: 10 mg Documented by: Pantoprazole Sodium (Pantoprazole 40 Mg Tab) 40 mg PO BID [facility] Stop: 08/09/21 20:59 Last Admin: 07/21/21 08:04 Dose: 40 mg Documented by: Rosuvastatin Calcium (Rosuvastatin Calcium 20 Mg Tab) 20 mg PO DAILY [facility] Stop: 07/31/21 08:59 Last Admin: 07/21/21 08:04 Dose: 20 mg Documented by: Saccharomyces Boulardii (Saccharomyces Boulardii 250 Mg Cap) 250 mg PO DAILY [facility] Stop: 08/11/21 08:59 Last Admin: 07/21/21 08:04 Dose: 250 mg Documented by: (1) Diabetes Diabetes mellitus complication status: with other specified complication Diabetes mellitus type: type 1 Qualified Code(s): E10.69 - Type 1 diabetes mellitus with other specified complication (2) Chronic pain Chronic pain type: other chronic pain Qualified Code(s): G89.29 - Other chronic pain
--- NOTE | 2021-07-21 18:58 | Dialysis Progress Note ---
Date of Service July 21, 2021 Assessment & Plan (1) ESRD (end stage renal disease) on dialysis: Plan: Patient admitted with stage 2 oligoanuric acute kidney injury on advanced CKD 4 w/ baseline high risk for progression > now ESRD. ischemic ATN in setting of nausea and vomiting for several days on underlying advanced diabetic nephropathy. Patient also found to have aspiration pneumonia and more recently pulmonary edema. Creatinine on admission was 6.1 from a baseline of 3. Creatinine down to 5.7 after receiving IV fluids but worsened to 8s and w/ oligoanuria. Given history of metastatic cancer and of the multiple comorbidities, patient may not be a good candidate for dialysis. However he wishes to try and understands risks it may not go well after discussion w/ me; finds these preferable to no intervention. consent is on chart. Plan trial of HD 4-6 wks then reassess tolerance and discuss permanent vasc access at that time -Renally dose antibiotics for GFR less than 15 mL/min -Monitor renal function with daily BMP -TDC placed 07/04; first HD same day -Last HD on 07/19 w/ 4L UF; next HD on 07/21 >>accepted at [facility] under care of Dr. Barajas; pt originally asked for dialysis under care of Dr Lord at [facility]; but this is a 3 day weekly unit and he may need extra txs as OP > [facility] is 6d/wkly unit and MUCH closer to pt's home; appreciate case mgt asst -no PROSPER d/t cancer hx > monitor anemia frequently as he is transfusion dependent (2) Primary cancer of left lung metastatic to other site: Plan: Patient is status post resection and radiation to the ninth rib. not a candidate for further chemo per oncology. upcomin gPET a few weeks after d/c; multple mets noted on 07/03 CT -fact that he's not a candidate for further chemo means no mediport needed, at least not for now (3) Pulmonary edema: Plan: >>he is having excessive plm edema and question remains why >> appreciate pulm recs; fluid status more stable/settled this week though still overloaded Admission and Anticipated Discharge Date Admission Date: June 30, 2021 Subjective seen on dialysis. concerned about how he will travel w/ 02NC or use regular sized tank at home given gait instability/walker. no n/v; pain w/ acceptable control; breathing ok Review of Systems Review of Systems: All systems reviewed & are unremarkable except as noted in Subjective Physical Exam Constitutional: well developed and well nourished; no acute distress Eyes: EOM intact bilaterally ENMT: Ears: no external ear abnormality Nose: no external nose abnormality Mouth: + dry oral mucous membranes Neck: no nuchal rigidity Respiratory: normal respiratory effort Auscultation: + diminished lung sounds Cardiovascular: RRR, no murmur, no edema Gastrointestinal (Abdomen): Inspection/Auscultation: normal bowel sounds Percussion/Palpation: abdomen soft; abdomen nontender Musculoskeletal: Extremities: strength 5/5 throughout Skin: no rashes, warm and dry Neurologic: villarreal, fluent speech, good insight Psychiatric: Orientation: oriented x 3 Results & Data ([facility]) Vital Signs (Past 12 Hours) Vital Signs Temp Pulse Pulse Pulse Resp BP BP 07/21/21 18:40 76 132/72 07/21/21 18:20 76 131/71 07/21/21 18:00 75 121/66 07/21/21 17:40 75 132/77 07/21/21 17:20 74 128/74 07/21/21 17:00 70 121/71 07/21/21 16:40 74 115/71 07/21/21 16:20 78 125/85 07/21/21 16:16 75 117/77 07/21/21 16:06 36.3 C L 78 07/21/21 12:07 36.5 C 84 16 124/72 Pulse Ox 07/21/21 18:40 07/21/21 18:20 07/21/21 18:00 07/21/21 17:40 07/21/21 17:20 07/21/21 17:00 07/21/21 16:40 07/21/21 16:20 07/21/21 16:16 07/21/21 16:06 07/21/21 12:07 97 Laboratory Results 07/19/21 08:09 07/19/21 08:09
[2021-07-22] MEDS: guaiFENesin/DEXTROM SYRUP 200MG/20MG 10ML UDC PO SCH ×2 (06:36→07:41)
[2021-07-22] MEDS: HEPARIN SOD (PORCINE) 1000 UNIT/ML IV SCH (07:01)
[2021-07-22] MEDS: SACCHAROMYCES BOULARDII 250 MG CAP PO SCH (07:40)
[2021-07-22] MEDS: levETIRAcetam 500 MG TAB PO SCH (07:40)
[2021-07-22] MEDS: GABAPENTIN 100 MG CAP PO SCH ×2 (07:40→13:42)
[2021-07-22] MEDS: PANTOprazole 40 MG TAB PO SCH (07:40)
[2021-07-22] MEDS: amLODIPine BESYLATE 5 MG TAB PO SCH (07:40)
[2021-07-22] MEDS: ROSUVASTATIN CALCIUM 20 MG TAB PO SCH (07:40)
[2021-07-22] MEDS: HEPARIN SOD 5,000 UNIT/0.5 ML VIAL SQ SCH (07:41)
[2021-07-22] MEDS: FLUTICASONE/VILANTEROL 100/25MCG 14 PUFFS/INHALER INH SCH (07:41)
[2021-07-22] MEDS: METOCLOPRAMIDE HCL 10 MG TABLET PO SCH ×2 (07:41→13:42)
[2021-07-22] MEDS: oxyCODONE HCL IR 5 MG TAB (IMMEDIATE RELEASE) PO PRN (07:42)
[2021-07-22] MEDS: CHECK CLONIDINE PATCH PLACEMENT SCH (07:43)
[2021-07-22] MEDS: INSULIN GLARGINE SOLOSTAR 100 UNITS/ML 3 ML PEN SC SCH (09:09)
[2021-07-22] MEDS: INSULIN ASPART PER UNIT SC SCH ×2 (09:09→12:16)
--- NOTE | 2021-07-22 16:39 | Discharge Summary ---
Date of Service July 22, 2021 Admission HPI Per Admitting Provider Patient is 55 y/o M with PMH COPD, non-small cell lung cancer s/p surgery, incomplete chemotherapy secondary to intolerance, recurrence to left 9th rib in 2020 s/p radiation, ulcerative colitis, gastroparesis, s/p gastric pacemaker, HTN, DM I, chronic pain, diabetic neuropathy, CKD with baseline creatinine around 2.8, chronic anemia, seizure disorder, history of neurogenic bladder presented to ER with c/o N/V and SOB. Patient reports chronic nausea and vomiting and usually vomits 6-12 times a day. He reports the past week has been vomiting greater than 30 times a day. He reports red flecks and flecks of coffee-ground like material in emesis. Patient complains of burning to his esophagus. Reports has chronic episodes of constipation followed by diarrhea. Reports had diarrhea numerous episodes yesterday. No BM today. Patient reports chronic dizziness and feels this is at baseline. Complains of frontal headache for several days. Reports today vision seems a little foggy "like looking through wax paper". Patient reports feeling short of breath for the past 2 days and was concerned he may have pneumonia. Reports productive cough. Patient states yesterday fever 102F. Patient reports did have medications this morning however feels he vomited them back up. Reports his blood sugars have varied from 60s-200s. Reports chronic pain and paresthesias. Denies diaphoresis, syncope, neck pain, chest pain, orthopnea, palpitations, choking, rhinorrhea. Principal Diagnosis General: chronic ill appearing male, mild distress secondary to nausea Head: normocephalic, atraumatic Eyes: PERRL, EOM's intact, conjunctiva non-injected, anicteric ENT: normal inspection external ears, nose, mucous membranes dry Neck: supple, trachea midline Lungs: clear, no respiratory distress, no wheezing/rhonchi/rales CV: RRR, no murmur, no JVD, no pretibial edema Abd: normal BS, soft, non-tender Ext: no cyanosis, no calf tenderness Neuro: A&O x 3, no focal deficits noted, normal affect Skin: warm, dry Discharge Exam General: Sitting comfortably in bed, not in distress, on NC HEENT: EOMI, FANTASMA, MMM Chest: Permcath site clear, fair breath sounds bilaterally CVS: Regular rate and rhythm, normal heart sounds, no murmur Abdomen: Soft, non tender, not distended, normal bowel sounds Neuro: Awake, alert, oriented, conversing well, non focal Extremities: No cyanosis, clubbing. trace edema Discharge Data Allergies Allergy/AdvReac Type Severity Reaction Status Date / Time bee venom protein (honey bee) Allergy Mild SWELLING Verified 06/30/21 23:19 AT SITE, SOB Penicillins Allergy Unknown "SINCE Verified 06/30/21 23:19 "-Amoxicillin cat dander Allergy Unknown Verified 06/30/21 23:19 Consultations 06/30/21 20:20 ED Decision to Admit Stat 07/01/21 08:42 Consult Nephrology Routine 07/03/21 10:22 Consult Vascular Surgery Routine 07/17/21 11:22 Consult Pulmonology Routine Procedures Performed Operation Date: 07/04/21 08:00 Actual Procedures p Perm Catheter Placement, Right Jugular Vein Approach, Ultrasound localization to Right Jugular Vein, Fluoscopy for Positioning, Moderate Sedation [id number] 0834(Right) - Joon Mattson MD Operation Date: 07/18/21 08:00 Actual Procedures p Bronchoscopy Radiology(Not Applicable) - Rob Carrero MD Ordered Studies 06/30/21 18:37 CT abd pelvis wo con Stat 06/30/21 21:46 CT head/brain wo con Stat 07/03/21 08:58 CT abd pelvis wo con Urgent CT chest diagnostic wo con Urgent 07/04/21 07:35 EV cvc insrt tunnel wo prt/audio tape librarian Routine 07/11/21 11:15 CT angio chest PE protocol Stat 07/16/21 16:36 CT chest diagnostic wo con Routine Hospital Course (1) Acute respiratory failure with hypoxia: Most likely due to pulmonary edema, aspiration pneumonitis -CTA chest 07/11-- bilateral pleural effusion, patchy opacities at bilateral bases, no PE -s/p 1 unit pRBC 07/11 at dialysis -Patient was on 2L of oxygen then required 15 L via oxymask then BIPAP (07/11) now weaned down to 2 L NC -Repeat CXR 07/12 again shows volume overload. -Repeat CXR 07/15- again shows volume overload -CT chest 07/16- shows worsening bilateral asymmetrical interstitial opacities concerning for pulmonary edema. On exam does NOT appear volume overloaded. -Uncertain etiology for his worsening interstitial opacities. Pulm consulted 07/17. Bronchoscopy 07/18 no alveolar hemorrhage, BAL cytology negative for malignancy, no eosinophilia, unrevealing cell counts- shows mixed inflammation. Recommended repeat CXR in 4-6 weeks -2 step closer done- oxygen arranged at discharge. - Continue Flutter valve (2) Acute on chronic anemia: -likely due to chronic kidney disease, Hb 6.6->8.7 s/p 1 unit pRBC -No evidence of active bleed (3) Multifocal pneumonia: -Patient finished 7 days of ertapenem previously -after episode of vomiting and concern for aspiration 07/11, he was placed on cefepime and flagyl. This was discontinued and he was placed back on Ertapenm 07/12-07/14 -Patient unable to get zosyn due to reported history of PCN allergy. -no cough, no fever, or leukocytosis. Procalcitonin neg x 3--> antibiotics were discontinued 07/14. He has remained stable off antibiotics (4) Acute kidney injury (IVAN) with acute tubular necrosis (ATN): ESRD on dialysis -Acute kidney injury due to ischemic ATN in setting of nausea and vomiting from gastroparesis, now with progression to ESRD requiring dialysis. Started on Dialysis here -Management per Nephrology, next dialysis session is scheduled for tomorrow. -OP dialysis has been set up per CM at [facility] in [place] but with frequency of dialysis he has required here, he may need more than 3x weekly dialysis. So Nephrology has reached out to for him to get set up at [place]. To start on Saturday as OP (5) Diabetic gastroparesis: s/p Gastric stimulator Patient reports chronic nausea and constipation Patient counseled on small meals already on promotility agents (6) Diabetes: Continue insulin. Has all diabetic supplies except for glucagon kit which was prescribed at his request. (7) Primary cancer of left lung metastatic to other site: -Recently finished radiation treatments and is scheduling for a PET scan in 1 month. New metastatic disease on left lung seen. Results were shared with his oncologist and with patient. OP follow up with Oncology. -Patient requesting a port be placed to reduce blood draws. While here, will reduce lab draws to dialysis days (can be drawn at dialysis). Will hold off on port placement--will defer this to Oncology if further plans for chemotherapy (8) HTN (hypertension): chronic, stable, lisinopril on hold in setting of worsening renal failure. Continue amlodipine 10 mg daily and Catapres TTS weekly patch per home regimen (9) Chronic pain: Continue home neurontin and oxycodone prn (10) Seizure disorder: Chronic, stable, no evidence of seizure activity. Continue keppra (11) DVT prophylaxis: Total Time Total Time Spent Total Time Spent (In Minutes): 40 Discharge Plan Discharge Items Patient Disposition: Home - Self-Care Reason For Visit: UNCONTROLLED HTN, ASP PNX, UGIB Discharge Diagnosis: ESRD on hemodialysis, acute hypoxic respiratory failure due to volume overload Activity: Resume your previous activity Non-emergency contact: Primary Care Provider and Taproom Attendant Call non-emergency contact if: you have any medication questions Follow-up/Referrals: Juan Lamb MD [Primary Care Provider] - (Date & Time 07/13/2021 3:30 PM Provider Juan Davis MD Department [facility] ) Diet: Dialysis Renal Addtl Attending Provider Instructions: Please report on Saturday for dialysis Follow with the lung doctors and kidney doctors. We recommend repeat chest xray in 4-6 weeks to ensure resolution of your lung opacities. Your blood pressure has been stable off of lisinopril here and hence we have discontinued it. Follow with family doctor for further management. Pending Studies at Discharge: No Stand-Alone Forms: [facility] [employer], Smoking Cessation Medications and DC Order Prescriptions: New Breo Ellipta 100-25 mcg/dose Blister With Device 1 puff inhalation DAILY Qty: 1 RF: 0 Continued insulin lispro [Humalog U-100 Insulin] 100 unit/mL solution 1 sliding scale dose subcut USEASDIRECTD RF: 0 gabapentin 400 mg capsule 400 mg PO TID RF: 0 (DME) FreeStyle Amparo 14 Day Sensor Kit See Rx Instructions .ROUTE RF: 0 Lantus Solostar U-100 Insulin 100 unit/mL (3 mL) insulin pen 7 unit subcut QPM RF: 0 meclizine 12.5 mg tablet 12.5 mg PO TID PRN (Reason: Dizziness) RF: 0 (DME) blood sugar diagnostic Strip See Rx Instructions .ROUTE RF: 0 ondansetron HCl [Zofran] 4 mg tablet 4 mg PO Q8H PRN (Reason: Nausea) RF: 0 fluticasone propion-salmeterol [Wixela Inhub] 250-50 mcg/dose Blister With Device 1 inh INHALATION BID RF: 0 epinephrine [EpiPen] 0.3 mg/0.3 mL Auto-Injector 0.3 mg IM Q3H PRN (Reason: Allergic Reaction) RF: 0 clonidine 0.2 mg/24 hr patch weekly 0.2 mg transdermal WK RF: 0 omeprazole 40 mg capsule,delayed release(DR/EC) 40 mg PO DAILY Qty: 30 RF: 0 amlodipine 10 mg tablet 10 mg PO DAILY Qty: 30 RF: 0 levetiracetam [Keppra] 750 mg tablet 750 mg PO BID Qty: 30 RF: 0 glucagon 1 mg recon soln 1 mg IM ONCE PRN (Reason: Hypoglycemia) Qty: 1 RF: 0 albuterol sulfate [Ventolin HFA] 90 mcg/actuation Hfa Aerosol Inhaler 2 puff INHALATION Q4H PRN (Reason: Shortness Of Breath) Qty: 1 RF: 0 metoclopramide HCl [Reglan] 10 mg tablet 10 mg PO TID Qty: 30 RF: 0 rosuvastatin 20 mg tablet 20 mg PO DAILY Qty: 30 RF: 0 oxycodone 10 mg tablet 10 mg PO Q4H PRN (Reason: Severe Pain (Scale Score 7-10)) 7 Days Qty: 14 RF: 0 Discontinued amlodipine [Norvasc] 5 mg tablet 10 mg PO QAM RF: 0 lisinopril 40 mg tablet 20 mg PO DAILY RF: 0 Discharge Orders: Discharge Order (Routine); Ordered 07/22/21 Ordered By: Evan Abarca/Other Patient Handouts: Managing Type 1 Diabetes Admission Data Admit Date/Time: 06/30/21 22:58 Attending Provider: Ellyn Lacy Admit Provider: Darian Chinchilla Primary Care Provider: Juan Lamb Other Providers: Darian Chinchilla ; Dylan Jo ; Joon Mattson ; Idalmis Lares ; Evan Buchanan ; Vilensky,Rob Other Interventions: Discharge Summary Assessment (RN) Last Done: 07/22/21 13:45
== END 2021-07-22 14:41 | disposition home or self-care (01) | DRG 177 ==
LOC: ED 16:35 → SUATTDRO 22:58 → 2N 22:58

== ENCOUNTER 2021-08-03 11:42 | Observation (INO) ==
[2021-08-03] MEDS ORDERED: SODIUM CHLORIDE 0.9% 1000ML 1,000 ML IV ONE (11:50)
[2021-08-03] MEDS ORDERED: PROMETHAZINE 12.5 MG/50.5 ML BAG IV STA (11:50)
--- NOTE | 2021-08-03 11:55 | Emergency Department Note ---
Impression & Plan Cyclic vomiting syndrome, Gastroparesis ED Provider Note NAME: NIKHIL MARTINS AGE: 55 SEX: M : 1965 ARRIVES VIA: Ambulance INFORMANT: Patient, EMS ED PROVIDER(S): Surya Chi DO CHIEF COMPLAINT: Vomiting HPI: The patient is a 55-year-old male who has a history of renal disease as well as gastroparesis. The patient presented to the emergency department via ambulance. The patient was noted to have elevated blood pressure and elevated blood sugar prior to arrival. He was very anxious. The patient states that his symptoms began over the last 24 hours. He states he initially was trying to manage it at home but over the last 24 hours has been unable to eat or drink anything. He has been unable to take his medications. He states his symptoms are moderate at this time. He denies having any fever. He denies having any cough or chest pain. He denies having any hemoptysis. He states he does have some abdominal pain with vomiting but in between the episodes of emesis he does not have any abdominal pain. ROS: See above HPI for pertinent positives & negatives. A total of 10 systems reviewed and were otherwise negative. PAST MEDICAL HISTORY: See Below PAST SURGICAL HISTORY: See Below FAMILY HISTORY: See Below SOCIAL HISTORY: See Below HOME MEDICATIONS: See Below ALLERGIES: See Below VITALS: See Below PHYSICAL EXAMINATION: GENERAL: The patient is awake and alert. The patient is somewhat anxious appearing. EYES: The conjunctivae are clear. The pupils are round and reactive. EARS, NOSE, MOUTH AND THROAT: The nose is without any evidence of any deformity. Mucous membranes are dry. NECK: The neck is nontender and supple. RESPIRATORY: Normal respiratory effort is noted there is no evidence of wheezing rhonchi or rales CARDIOVASCULAR: Regular rate and rhythm noted there no murmurs rubs or gallops normal S1 normal S2. GASTROINTESTINAL: The abdomen is soft and nondistended. There is no guarding or rigidity appreciated. MUSCULOSKELETAL/EXTREMITIES: There is no evidence of gross deformity full range of motion is noted in the hips and shoulders. SKIN: There is no obvious evidence of any rash. There are no petechiae, pallor or cyanosis noted. NEUROLOGIC: Patient is awake alert and oriented x3. MEDICAL DECISION MAKING: The patient is a 55-year-old male who presented to the emergency department for an evaluation of abdominal pain nausea vomiting. The patient is a history of chronic gastroparesis. He also has a history of renal dialysis. He received dialysis yesterday and his electrolytes reflect this. The patient was treated with IV fluids IV pain medication and IV antiemetics. The patient's symptoms were not completely improved. I discussed follow-up with the patient at this time he is not comfortable being discharged. For this reason I [facility] The patient's blood pressure was very elevated because he was unable to take his medications this morning. Triage Nursing notes reviewed. Prior medical records reviewed Vital Signs: reviewed and remarkable for elevated blood pressure and tachycardia. Differential diagnosis: Gastroenteritis, food borne illness, infections, appendicitis, diverticulitis, inflammatory bowel disease, obstruction, GI bleed, biliary pathology, volvulus, as well as other pathologies. ER treatment provided: See below Diagnostics interpreted by me: ECG: EKG was obtained in the emergency department. My interpretation is normal sinus rhythm at 93 bpm. There was no ectopy. Nonspecific ST segment abnormalities were noted. This was compared to a tracing from June 302021. No changes were noted Cardiac Monitoring: An order was placed for continuous cardiac monitoring. The monitor shows a rate of 99 bpm with sinus rhythm. Laboratory studies: As stated above and show below. Imaging studies: See below Consultation(s): I discussed this case with Windy who is [facility]. Past Med/Surg History Medical History Abdominal pain Abnormal finding on CT scan Acute dyspnea Acute hyponatremia Acute on chronic renal failure IVAN (acute kidney injury) Anemia Asymptomatic hypertensive urgency Chest pain No current chest pain...related to reflux per patient Chronic pain CKD (chronic kidney disease) stage 4, GFR 15-29 ml/min baseline creatinine 3 in fall 2020 w/ 1 gm proteinuria COPD (chronic obstructive pulmonary disease) Dehydration Diabetes mellitus type 2, uncontrolled Diabetic autonomic neuropathy Diabetic peripheral neuropathy Discharge planning issues DVT prophylaxis Elevated d-dimer Esophagitis ESRD (end stage renal disease) on dialysis Gastroparesis "s/p gastric stimulator" History of Crohn's disease HTN (hypertension) Hyperglycemia Hypertension Hypertensive crisis Hypoglycemia Hypomagnesemia Hypothermia Intractable nausea and vomiting Lab test negative for COVID-19 virus [place] grade C esophagitis 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 One 1 mm polyp in the ascending colon resected. One benign appearing 1 mm polyp in the rectum resected. Internal hemorrhoids; Dr. Demarco" H/O esophagogastroduodenoscopy "01/26/2015- [place] Grade B reflux esophagitis, gastritis; Dr. Major" History of cholecystectomy History of tonsillectomy and adenoidectomy Hx of total knee arthroplasty S/P lobectomy of lung "left upper lobectomy for adenoCa" On 08/05/16 16:30 Edie Mcfarland wrote "L side @ [facility] 05/25/16" Status post insertion of intrathecal pump explanted Family History Mother Diabetes Dementia Father Hypertension Diabetes Sister Crohn's disease Other Family history non-contributory Social History Smoking Status: Former smoker Tobacco Type: Cigarettes Second Hand Exposure: No; Hx Alcohol Use: No Hx Substance Use: No Preferred Language: [place] Communication Ability: Effective Visual Impairment: No 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 Required: No Beliefs That Will Affect Care: Buddhist Buddhist Beliefs: Cheondoism marital status: Single Current Living Situation: Alone Current Living Situation Comment: has family close by and available to assist current occupational status: disabled How many Children do You have: 5 Feels Safe at Home: Yes Diet Comment: Carb counting caffeine: No Physical Activity Frequency: Does not Exercise Physical Activity Frequency Comment: walks when able Assistive Devices: Cane Allergies Allergies Allergy/AdvReac Type Severity Reaction Status Date / Time bee venom protein (honey bee) Allergy Mild SWELLING Verified 08/03/21 12:41 AT SITE, SOB Penicillins Allergy Unknown "SINCE Verified 08/03/21 12:41 "-Amoxicillin cat dander Allergy Unknown Verified 08/03/21 12:41 Home Meds Home Medications Medication Instructions Recorded Confirmed epinephrine 0.3 mg/0.3 mL 0.3 mg IM Q3H PRN 05/05/18 08/03/21 injection, auto-injector (EpiPen) fluticasone 250 mcg-salmeterol 50 1 inh INHALATION BID 01/24/20 08/03/21 mcg/dose blistr powdr for inhalation (Wixela Inhub) blood sugar diagnostic 04/26/21 08/03/21 flash glucose sensor (FreeStyle 04/26/21 08/03/21 Amparo 14 Day Sensor) gabapentin 400 mg capsule 400 mg PO TID 04/26/21 08/03/21 insulin glargine 100 unit/mL (3 7 unit SUBCUT QPM ml 04/26/21 08/03/21 mL) subcutaneous pen (Lantus Solostar U-100 Insulin) insulin lispro 100 unit/mL 1 sliding scale dose SUBCUT 04/26/21 08/03/21 subcutaneous solution (Humalog USEASDIRECTD U-100 Insulin) meclizine 12.5 mg tablet 12.5 mg PO TID PRN 04/26/21 08/03/21 ondansetron HCl 4 mg tablet 4 mg PO Q8H PRN 04/26/21 08/03/21 (Zofran) clonidine 0.2 mg/24 hr weekly 0.2 mg TRANSDERMAL WK 06/30/21 08/03/21 transdermal patch Previous Rx's Medication Instructions Recorded albuterol sulfate 90 mcg/actuation 2 puff INHALATION Q4H PRN #1 07/22/21 aerosol inhaler (Ventolin HFA) inhaler fluticasone furoate 100 1 puff INHALATION DAILY #1 inhaler 07/22/21 mcg-vilanterol 25 mcg/dose inhalation powder (Breo Ellipta) glucagon 1 mg solution for 1 mg IM ONCE PRN #1 ea 07/22/21 injection levetiracetam 750 mg tablet 750 mg PO BID #30 tab 07/22/21 (Keppra) metoclopramide HCl 10 mg tablet 10 mg PO TID #30 tab 07/22/21 (Reglan) omeprazole 40 mg capsule,delayed 40 mg PO DAILY #30 cap 07/22/21 release oxycodone 10 mg tablet 10 mg PO Q4H PRN 7 Days #14 tab 07/22/21 rosuvastatin 20 mg tablet 20 mg PO DAILY #30 tab 07/22/21 Results & Data (ED) Vital Signs Vital Signs - 24 hr 08/03/21 12:11 08/03/21 13:07 08/03/21 14:57 Temperature 36.7 C Temperature Source Oral Pulse Rate 94 H Pulse Rate [Finger] 98 H 99 H Respiratory Rate 18 18 18 Blood Pressure 214/123 H Blood Pressure [Left Arm] 204/131 H 205/136 H Blood Pressure Mean 153 Blood Pressure Mean [Left Arm] 155 159 Pulse Oximetry 98 100 98 Oxygen Delivery Method Room Air Room Air Room Air Sepsis Recent Fever Within 48 Hours No Sepsis New/Unexplained Change in Mental Status No Sepsis Action Taken by Nursing No Action Required Home Medications Current Medication List: was personally reviewed by me Laboratory Data Attestation: I reviewed the patient's lab results. Result diagrams: 08/03/21 12:10 08/03/21 12:10 Lab Results 08/03/21 08/03/21 08/03/21 Range/Units 12:10 12:10 12:10 WBC 10.27 (4.8-10.8) K/uL RBC 4.03 L (4.7-6.1) M/uL Hgb 11.7 L (14.0-18.0) g/dL Hct 34.9 L (42-52) % MCV 86.6 (80-100) fL MCH 29.0 (25-34) pg MCHC 33.5 (32-36) g/dL RDW Std Deviation 43.3 (36.4-46.3) fL RDW Coeff of Rik 13.7 (11.5-14.5) % Plt Count 346 (130-400) K/uL MPV 10.7 H (7.4-10.4) fL Immature Gran % (Auto) 0.3 % Neut % (Auto) 81.3 % Lymph % (Auto) 9.2 % [place] % (Auto) 8.0 % Eos % (Auto) 0.9 % Baso % (Auto) 0.3 % Neut # (Auto) 8.36 H (1.4-6.5) K/uL Lymph # (Auto) 0.94 L (1.2-3.4) K/uL [place] # (Auto) 0.82 H (0.11-0.59) K/uL Eos # (Auto) 0.09 (0-0.5) K/uL Baso # (Auto) 0.03 (0-0.2) K/uL Immature Gran # (Auto) 0.03 H (0.00-0.02) K/uL PT 10.7 (9.0-12.0) Seconds INR 1.0 (0.9-1.1) APTT 24.5 (21.0-31.0) Seconds PTT Ratio 0.9 Sodium 135 L (136-145) mmol/L Potassium 3.4 L (3.5-5.1) mmol/L Chloride 97 L (98-107) mmol/L Carbon Dioxide 24 (21-32) mmol/L Anion Gap 14 H (3-11) BUN 17 (6-23) mg/dl Creatinine 3.84 H (0.6-1.4) mg/dl Est Cr Clr Drug Dosing 21.0 ml/min Est GFR ( Amer) 19.2 ml/min Est GFR (Non-Af Amer) 16.6 ml/min BUN/Creatinine Ratio 4.4 L (10-20) Glucose 274 H (70-99(Fasting)) mg/dl Calcium 9.2 (8.5-10.1) mg/dl Total Bilirubin 0.4 (0.2-1.0) mg/dl AST 15 (13-39) U/L ALT 22 (7-52) U/L Alkaline Phosphatase 168 H (34-104) U/L Troponin I < 0.03 (0-0.04) ng/ml Total Protein 8.4 H (6.0-8.3) gm/dl Albumin 3.8 (3.4-5.0) gm/dl Globulin 4.6 H (2.5-4.0) gm/dl Albumin/Globulin Ratio 0.8 L (0.9-2) Lipase 4 L (11-82) U/L Administered Medications Discontinued Medications Haloperidol Lactate (Haloperidol Lactate 5 Mg/Ml 1 Ml Vial) 5 mg IM NOW STA Stop: 08/03/21 15:03 Last Admin: 08/03/21 15:26 Dose: 5 mg Documented by: [id number] Sodium Chloride (Nss 1000ml) 1,000 mls @ 999 mls/hr IV .Q1H1M ONE Stop: 08/03/21 12:50 Last Infusion: 08/03/21 14:57 Dose: 0 mls/hr Documented by: [id number] Admin: 08/03/21 12:31 Dose: 999 mls/hr Documented by: [id number] Promethazine HCl (Phenergan) 12.5 mg in 50.5 mls @ 202 mls/hr IV NOW STA Stop: 08/03/21 12:04 Last Infusion: 08/03/21 13:06 Dose: 0 mls/hr Documented by: [id number] Admin: 08/03/21 12:35 Dose: 202 mls/hr Documented by: [id number] Morphine Sulfate (Morphine Sulfate 4 Mg/Ml 1 Ml Carp\\Vial) 4 mg IV NOW STA Stop: 08/03/21 15:03 Last Admin: 08/03/21 15:27 Dose: 4 mg Documented by: [id number] Imaging Data Radiologist's Impression: Chest X-Ray 08/03/21 11:51 XR chest 1V portable CLINICAL HISTORY: vomiting. Evaluate cardiopulmonary status COMPARISON STUDY: 07/15/2021 TECHNIQUE: 1 view of the chest FINDINGS: Single frontal view of the chest demonstrates the cardiomediastinal silhouette to be within normal limits. A Port-A-Cath is in place. The lungs are clear of alveolar opacities. There is no evidence for pleural effusion. There is no varsha dence for vascular congestion. There is no acute osseous pathology. IMPRESSION: 1. No acute cardiopulmonary disease. ACT 112: Negative or not required by law. Electronically signed by: Pranav Yip M.D. 08/03/2021 12:16 PM KUB X-Ray 08/03/21 11:51 XR KUB/Abdomen 1 view CLINICAL HISTORY: vomiting. COMPARISON STUDY: 02/21/2021 TECHNIQUE: Single view of the abdomen. FINDINGS: The bowel gas pattern is within normal limits without evidence for dilatation or obstruction. A mechanical stimulator device is again place. There is no evidence for organomegaly or gross intra-abdominal mass. No abnormal calcifications are seen along the course of the urinary tracts bilaterally. No acute osseous pathology. IMPRESSION: 1. No acute intra-abdominal abnormality. ACT 112: Negative or not required by law. Electronically signed by: Pranav Yip M.D. 08/03/2021 12:17 PM Discharge Plan Visit Data Chief Complaint: Illness ED Provider: Surya Chi Discharge Problem: Cyclic vomiting syndrome, Gastroparesis Patient Disposition: Being Evaluated by Hospitalist Forms Stand Alone Forms: [facility] Prescriptions Prescriptions: No Action insulin lispro [Humalog U-100 Insulin] 100 unit/mL solution 1 sliding scale dose subcut USEASDIRECTD RF: 0 gabapentin 400 mg capsule 400 mg PO TID RF: 0 (DME) FreeStyle Amparo 14 Day Sensor Kit See Rx Instructions .ROUTE RF: 0 Lantus Solostar U-100 Insulin 100 unit/mL (3 mL) insulin pen 7 unit subcut QPM RF: 0 meclizine 12.5 mg tablet 12.5 mg PO TID PRN (Reason: Dizziness) RF: 0 (DME) blood sugar diagnostic Strip See Rx Instructions .ROUTE RF: 0 ondansetron HCl [Zofran] 4 mg tablet 4 mg PO Q8H PRN (Reason: Nausea) RF: 0 fluticasone propion-salmeterol [Wixela Inhub] 250-50 mcg/dose Blister With Device 1 inh INHALATION BID RF: 0 epinephrine [EpiPen] 0.3 mg/0.3 mL Auto-Injector 0.3 mg IM Q3H PRN (Reason: Allergic Reaction) RF: 0 clonidine 0.2 mg/24 hr patch weekly 0.2 mg transdermal WK RF: 0 Breo Ellipta 100-25 mcg/dose Blister With Device 1 puff inhalation DAILY Qty: 1 RF: 0 omeprazole 40 mg capsule,delayed release(DR/EC) 40 mg PO DAILY Qty: 30 RF: 0 levetiracetam [Keppra] 750 mg tablet 750 mg PO BID Qty: 30 RF: 0 glucagon 1 mg recon soln 1 mg IM ONCE PRN (Reason: Hypoglycemia) Qty: 1 RF: 0 albuterol sulfate [Ventolin HFA] 90 mcg/actuation Hfa Aerosol Inhaler 2 puff INHALATION Q4H PRN (Reason: Shortness Of Breath) Qty: 1 RF: 0 metoclopramide HCl [Reglan] 10 mg tablet 10 mg PO TID Qty: 30 RF: 0 rosuvastatin 20 mg tablet 20 mg PO DAILY Qty: 30 RF: 0 oxycodone 10 mg tablet 10 mg PO Q4H PRN (Reason: Severe Pain (Scale Score 7-10)) 7 Days Qty: 14 RF: 0 Referrals Referrals: Juan Lamb MD [Primary Care Provider] -
--- NOTE | 2021-08-03 12:17 | XRay Report ---
XR chest 1V portable CLINICAL HISTORY: vomiting. Evaluate cardiopulmonary status COMPARISON STUDY: 07/15/2021 TECHNIQUE: 1 view of the chest FINDINGS: Single frontal view of the chest demonstrates the cardiomediastinal silhouette to be within normal li mits. A Port-A-Cath is in place. The lungs are clear of alveolar opacities. There is no evidence for pleural effusion. There is no evidence for vascular congestion. There is no acute osseous pathology. IMPRESSION: 1. No acute cardiopulmonary disease. ACT 112: Negative or not required by law. Electronically signed by: Pranav Yip M.D. 08/03/2021 12:16 PM
--- NOTE | 2021-08-03 12:18 | XRay Report ---
XR KUB/Abdomen 1 view CLINICAL HISTORY: vomiting. COMPARISON STUDY: 02/21/2021 TECHNIQUE: Single view of the abdomen. FINDINGS: The bowel gas pattern is within normal limits without evidence for dilatation or obstruction. A mecha nical stimulator device is again place. There is no evidence for organomegaly or gross intra-abdomina l mass. No abnormal calcifications are seen along the course of the urinary tracts bilaterally. No ac stacy osseous pathology. IMPRESSION: 1. No acute intra-abdominal abnormality. ACT 112: Negative or not required by law. Electronically signed by: Pranav Yip M.D. 08/03/2021 12:17 PM
[2021-08-03 12:37] LABS: Basophils # (auto) 0.03 K/uL (0-0.2); Basophils % (auto) 0.3 %; Eosinophils # (auto) 0.09 K/uL (0-0.5); Eosinophils % (auto) 0.9 %; Hematocrit (blood only) 34.9 % (42-52); Hemoglobin 11.7 g/dL (14.0-18.0); Immature Granulocytes # (auto) 0.03 K/uL (0.00-0.02); Immature Granulocytes % (auto) 0.3 %; Lymphocytes # (auto) 0.94 K/uL (1.2-3.4); Lymphocytes % (auto) 9.2 %; Mean Corpuscular Hgb Conc 33.5 g/dL (32-36); Mean Corpuscular Volume 86.6 fL (80-100); Mean Platelet Volume 10.7 fL (7.4-10.4); Monocytes # (auto) 0.82 K/uL (0.11-0.59); Neutrophils # (auto) 8.36 K/uL (1.4-6.5); Neutrophils % (auto) 81.3 %; Platelet Count 346 K/uL (130-400); RDW Coefficient of Variation 13.7 % (11.5-14.5); RDW Standard Deviation 43.3 fL (36.4-46.3); Red Blood Count 4.03 M/uL (4.7-6.1); White Blood Count 10.27 K/uL (4.8-10.8)
[2021-08-03 12:46] LABS: Partial Thromboplastin Ratio 0.9; Partial Thromboplastin Time 24.5 Seconds (21.0-31.0); Prothrombin Time 10.7 Seconds (9.0-12.0)
[2021-08-03 13:15] LABS: Troponin I < 0.03 ng/ml (0-0.04)
[2021-08-03 13:25] LABS: Alanine Aminotransferase 22 U/L (7-52); Albumin Globulin Ratio 0.8 (0.9-2); Albumin Level 3.8 gm/dl (3.4-5.0); Alkaline Phosphatase 168 U/L (34-104); Anion Gap 14 (3-11); Aspartate Aminotransferase 15 U/L (13-39); BUN Creatinine Ratio 4.4 (10-20); Bilirubin,Total 0.4 mg/dl (0.2-1.0); Blood Urea Nitrogen 17 mg/dl (6-23); Calcium 9.2 mg/dl (8.5-10.1); Carbon Dioxide 24 mmol/L (21-32); Chloride 97 mmol/L (98-107); Est GFR (African American) 19.2 ml/min; Est GFR (Non-African American) 16.6 ml/min; Globulin 4.6 gm/dl (2.5-4.0); Glucose 274 mg/dl (70-99(Fasting)); Lipase 4 U/L (11-82); Potassium 3.4 mmol/L (3.5-5.1); Sodium 135 mmol/L (136-145); Total Protein 8.4 gm/dl (6.0-8.3)
[2021-08-03] MEDS ORDERED: HALOPERIDOL LACTATE 5 MG/ML 1 ML VIAL IM STA (15:02)
[2021-08-03] MEDS ORDERED: MoRPHine SULFATE 4 MG/ML 1 ML CARP\\VIAL IV STA (15:02)
--- NOTE | 2021-08-03 16:37 | History & Physical Report ---
Date of Service August 03, 2021 Assessment & Plan (1) Nausea vomiting and diarrhea: Plan: Acute exacerbation of chronic N/V. Diarrhea started today. - Admit for observation - Phenergan for anti-emetic. Zofran on hold due to prolonged QT - Diet as tolerated - Stool studies (2) Hypokalemia: Plan: - Replete IV 20 mEq since pt with vomiting - Recheck labs in AM (3) Diabetic gastroparesis: Plan: - Diet modifications - Continue Reglan as taken outpatinet (4) Diabetes: Plan: - Insulin sliding scale - Diabetic diet as tolerated - History of labile blood sugars during recent hospitalization - low threshold for glycemic management consult (5) HTN (hypertension): Plan: BP currently markedly elevated. Lisinopril stopped during last hospitalization. Pt reports amlodipine was stopped since discharge due to episodes of hypotension - only using clonidine patch - Continue clonidine - Resume amlodipine - Add prn IV hydralazine (6) ESRD (end stage renal disease) on dialysis: Plan: Pt reports last HD was yesterday - Consult nephrology for HD (7) Diabetic peripheral neuropathy: (8) Presence of gastric pacemaker: (9) Lung cancer: (10) Seizure disorder: Plan: Continue other home medications as appropriate. Pt seen and reviewed with collaborating physician, Dr. Wells. Plan of care discussed and as outlined above DVT Prophylaxis: Lovenox Code Status: DNI but does want all of measures attempted including CPR and defibrillation Isabella Steele PA-C History of Present Illness Chief Complaint: Vomiting Primary Care Provider: Juan Lamb MD This is a 55 y/o male with a complicated PMH that includes DM1, gastroparesis s/p gastric stimulator placement, non-small cell lung cancer s/p surgery and incomplete chemo secondary to intolerance, recent XRT to recurrence in left 9th rib, ESRD on HD, seizure disorder, HTN, anemia, and history of neurogenic bladder who presents to the ED with recurrent N/V/D. He notes ongoing chronic issues with abdominal pain, N/V. For the past two days, he has had worsening of the nausea and vomiting with at least seven episodes of emesis today. The chronic abdominal pain that is worse right now due to the vomiting. No hematemesis. Started with diarrhea today - four episodes of loose stools thus far. No hematochezia. Denies fevers or chills. No antibiotics since discharged from the hospital. Chronic issues with acid reflux, which have been slightly worse recently. When discharged most recently, sent home on 2L of oxygen - has been using it most of the time but may run out if he's out of the house too long. Today he also c/o VALDEZ and dizziness. Generalized pain and weakness. Recently admitted from 06/30-07/22 with acute respiratory failure w/ hy poxia, multifocal pneumonia, acute on chronic anemia requiring transfusion of one unit of PRBCs, IVAN w/ ATN due to N/V from gastroparesis on CKD 4 --> ESRD and started on HD, which he has been attending 3x/week. Last HD was yesterday. Allergies Allergy/AdvReac Type Severity Reaction Status Date / Time bee venom protein (honey bee) Allergy Mild SWELLING Verified 08/03/21 12:41 AT SITE, SOB Penicillins Allergy Unknown "SINCE Verified 08/03/21 12:41 "-Amoxicillin cat dander Allergy Unknown Verified 08/03/21 12:41 Home Medications Medication Instructions Recorded Confirmed Type epinephrine 0.3 mg/0.3 mL 0.3 mg IM Q3H PRN 05/05/18 08/03/21 History injection, auto-injector (EpiPen) blood sugar diagnostic 04/26/21 08/03/21 History flash glucose sensor (FreeStyle 04/26/21 08/03/21 History Amparo 14 Day Sensor) gabapentin 400 mg capsule 400 mg PO TID 04/26/21 08/03/21 History insulin glargine 100 unit/mL (3 7 unit SUBCUT QPM ml 04/26/21 08/03/21 History mL) subcutaneous pen (Lantus Solostar U-100 Insulin) insulin lispro 100 unit/mL 1 sliding scale dose SUBCUT 04/26/21 08/03/21 History subcutaneous solution (Humalog USEASDIRECTD U-100 Insulin) meclizine 12.5 mg tablet 12.5 mg PO TID PRN 04/26/21 08/03/21 History ondansetron HCl 4 mg tablet 4 mg PO Q8H PRN 04/26/21 08/03/21 History (Zofran) clonidine 0.2 mg/24 hr weekly 0.2 mg TRANSDERMAL WK 06/30/21 08/03/21 History transdermal patch albuterol sulfate 90 mcg/actuation 2 puff INHALATION Q4H PRN #1 07/22/21 08/03/21 Rx aerosol inhaler (Ventolin HFA) inhaler fluticasone furoate 100 1 puff INHALATION DAILY #1 inhaler 07/22/21 08/03/21 Rx mcg-vilanterol 25 mcg/dose inhalation powder (Breo Ellipta) glucagon 1 mg solution for 1 mg IM ONCE PRN #1 ea 07/22/21 08/03/21 Rx injection levetiracetam 750 mg tablet 750 mg PO BID #30 tab 07/22/21 08/03/21 Rx (Keppra) metoclopramide HCl 10 mg tablet 10 mg PO TID #30 tab 07/22/21 08/03/21 Rx (Reglan) omeprazole 40 mg capsule,delayed 40 mg PO DAILY #30 cap 07/22/21 08/03/21 Rx release oxycodone 10 mg tablet 10 mg PO Q4H PRN 7 Days #14 tab 07/22/21 08/03/21 Rx rosuvastatin 20 mg tablet 20 mg PO DAILY #30 tab 07/22/21 08/03/21 Rx Past Med/Surg History Medical History Abdominal pain Abnormal finding on CT scan Acute dyspnea Acute hyponatremia Acute on chronic renal failure IVAN (acute kidney injury) Anemia Asymptomatic hypertensive urgency Chest pain No current chest pain...related to reflux per patient Chronic pain CKD (chronic kidney disease) stage 4, GFR 15-29 ml/min baseline creatinine 3 in fall 2020 w/ 1 gm proteinuria COPD (chronic obstructive pulmonary disease) Dehydration Diabetes mellitus type 2, uncontrolled Diabetic autonomic neuropathy Diabetic peripheral neuropathy Discharge planning issues DVT prophylaxis Elevated d-dimer Esophagitis ESRD (end stage renal disease) on dialysis Gastroparesis "s/p gastric stimulator" History of Crohn's disease HTN (hypertension) Hyperglycemia Hypertension Hypertensive crisis Hypoglycemia Hypomagnesemia Hypothermia Intractable nausea and vomiting Lab test negative for COVID-19 virus Maverick grade C esophagitis 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 One 1 mm polyp in the ascending colon resected. One benign appearing 1 mm polyp in the rectum resected. Internal hemorrhoids; Dr. Demarco" H/O esophagogastroduodenoscopy "01/26/2015- [place] Grade B reflux esophagitis, gastritis; Dr. Major" History of cholecystectomy History of tonsillectomy and adenoidectomy Hx of total knee arthroplasty S/P lobectomy of lung "left upper lobectomy for adenoCa" On 08/05/16 16:30 Edie Mcfarland wrote "L side @ [facility] 05/25/16" Status post insertion of intrathecal pump explanted Family History Mother Diabetes Dementia Father Hypertension Diabetes Sister Crohn's disease Other Family history non-contributory Social History Smoking Status: Former smoker Tobacco Type: Cigarettes Second Hand Exposure: No; Hx Alcohol Use: No Hx Substance Use: No Preferred Language: [place] Verdean Communication Ability: Effective Visual Impairment: No Limitations Sander Machine Required: No Beliefs That Will Affect Care: None marital status: Single Current Living Situation: Alone Current Living Situation Comment: has family close by and available to assist current occupational status: disabled How many Children do You have: 5 Other Information That Helps Us Care for You: No Feels Safe at Home: Yes Safety Concerns: Feels Safe At This Time Diet Comment: Carb counting caffeine: No Physical Activity Frequency: Does not Exercise Physical Activity Frequency Comment: walks when able Assistive Devices: Cane, Oxygen - Continuous and Walker Review of Systems Review of Systems: All systems reviewed & are unremarkable except as noted in HPI & below Constitutional: + fatigue, + weakness and + anorexia; no fever and no chills Respiratory: no cough and no dyspnea Cardiovascular: no palpitations and no edema Gastrointestinal: as per Subjective / HPI Musculoskeletal: + myalgia and + muscle weakness Neurologic: + dizziness and + headache(s) Physical Exam Constitutional: well developed and well nourished; no acute distress Eyes: + anicteric sclerae ENMT: moist mucus membranes Neck: trachea midline Respiratory: no respiratory distress and no labored breathing Auscultation: + diminished lung sounds (but poor inspiratory effort) Cardiovascular: Rate/Rhythm: regular rate and regular rhythm Gastrointestinal (Abdomen): Inspection/Auscultation: normal bowel sounds; abdomen not distended Percussion/Palpation: + abdomen tender (diffuse, mild) and abdomen soft Musculoskeletal: Head/Neck/Chest: normocephalic, head atraumatic and neck supple Skin: no jaundice Neurologic: moves all extremities; no focal motor deficits and not confused Results & Data Results & Data ([facility]) Vital Signs (Past 12 Hours) Vital Signs Temp Pulse Pulse Resp BP BP Pulse Ox 08/03/21 14:57 99 H 18 205/136 H 98 08/03/21 13:07 98 H 18 204/131 H 100 08/03/21 12:11 36.7 C 94 H 18 214/123 H 98 Laboratory Results Laboratory Results - last 24 hr 08/03/21 08/03/21 08/03/21 12:10 12:10 12:10 WBC 10.27 RBC 4.03 L Hgb 11.7 L Hct 34.9 L MCV 86.6 MCH 29.0 MCHC 33.5 RDW Std Deviation 43.3 RDW Coeff of Rik 13.7 Plt Count 346 MPV 10.7 H Immature Gran % (Auto) 0.3 Neut % (Auto) 81.3 Lymph % (Auto) 9.2 Andrew % (Auto) 8.0 Eos % (Auto) 0.9 Baso % (Auto) 0.3 Neut # (Auto) 8.36 H Lymph # (Auto) 0.94 L Andrew # (Auto) 0.82 H Eos # (Auto) 0.09 Baso # (Auto) 0.03 Immature Gran # (Auto) 0.03 H PT 10.7 INR 1.0 APTT 24.5 PTT Ratio 0.9 Sodium 135 L Potassium 3.4 L Chloride 97 L Carbon Dioxide 24 Anion Gap 14 H BUN 17 Creatinine 3.84 H Est Cr Clr Drug Dosing 21.0 Est GFR ( Amer) 19.2 Est GFR (Non-Af Amer) 16.6 BUN/Creatinine Ratio 4.4 L Glucose 274 H Calcium 9.2 Total Bilirubin 0.4 AST 15 ALT 22 Alkaline Phosphatase 168 H Troponin I < 0.03 Total Protein 8.4 H Albumin 3.8 Globulin 4.6 H Albumin/Globulin Ratio 0.8 L Lipase 4 L SARS-CoV-2, RNA, NAAT 08/03/21 16:15 WBC RBC Hgb Hct MCV MCH MCHC RDW Std Deviation RDW Coeff of Rik Plt Count MPV Immature Gran % (Auto) Neut % (Auto) Lymph % (Auto) Andrew % (Auto) Eos % (Auto) Baso % (Auto) Neut # (Auto) Lymph # (Auto) Andrew # (Auto) Eos # (Auto) Baso # (Auto) Immature Gran # (Auto) PT INR APTT PTT Ratio Sodium Potassium Chloride Carbon Dioxide Anion Gap BUN Creatinine Est Cr Clr Drug Dosing Est GFR ( Amer) Est GFR (Non-Af Amer) BUN/Creatinine Ratio Glucose Calcium Total Bilirubin AST ALT Alkaline Phosphatase Troponin I Total Protein Albumin Globulin Albumin/Globulin Ratio Lipase SARS-CoV-2, RNA, NAAT Pending Diagnostic Findings Chest X-ray 08/03/21 - IMPRESSION: 1. No acute cardiopulmonary disease. KUB 08/03/21 - IMPRESSION: 1. No acute intra-abdominal abnormality. Medications Administered Discontinued Medications Haloperidol Lactate (Haloperidol Lactate 5 Mg/Ml 1 Ml Vial) 5 mg IM NOW STA Stop: 08/03/21 15:03 Last Admin: 08/03/21 15:26 Dose: 5 mg Documented by: [id number] Sodium Chloride (Nss 1000ml) 1,000 mls @ 999 mls/hr IV .Q1H1M ONE Stop: 08/03/21 12:50 Last Infusion: 08/03/21 14:57 Dose: 0 mls/hr Documented by: [id number] Admin: 08/03/21 12:31 Dose: 999 mls/hr Documented by: [id number] Promethazine HCl (Phenergan) 12.5 mg in 50.5 mls @ 202 mls/hr IV NOW STA Stop: 08/03/21 12:04 Last Infusion: 08/03/21 13:06 Dose: 0 mls/hr Documented by: [id number] Admin: 08/03/21 12:35 Dose: 202 mls/hr Documented by: [id number] Morphine Sulfate (Morphine Sulfate 4 Mg/Ml 1 Ml Carp\\Vial) 4 mg IV NOW STA Stop: 08/03/21 15:03 Last Admin: 08/03/21 15:27 Dose: 4 mg Documented by: [id number] Supervising Physician Co-Signing Physician Notes Patient is a 55-year-old male with history of diabetes mellitus, severe gastroparesis S/P gastric stimulator, lung cancer with metastatic cysts and other medical problems presents with history of recurrent nausea, vomiting, diarrhea. Patient attributes his symptoms secondary to gastroparesis. He also states having generalized pain and is on chronic pain medications. Patient reports having 4 loose bowel movements today but denies any blood in stools. Also denies any fever, chills, chest pain, shortness of breath. Please review HPI for complete details of presentation. Patient was found to be in hypertensi ve urgency while in ED. Blood work suggestive of hemoglobin 11.7, sodium 135, chloride 97, potassium 3.4, creatinine 3.84, glucose 274, alkaline phosphatase 168. Lipase within normal limits. Chest x-ray and KUB within normal limits. EKG abnormal. On exam patient is chronic ill-appearing, no apparent distress, normocephalic atraumatic, EOMI, decreased breath sounds, clear to auscultation, S1-S2, no murmur, no pedal edema, abdomen soft, generalized abdominal tenderness, no guarding or rigidity, normal bowel sounds, alert, awake, oriented, grossly no focal deficits. Patient is admitted for management of severe gastroparesis. Also to rule out infection. Antiemetics. Stool studies to rule out infection. Received gentle IV fluids while in ED. Monitor volume status given end-stage renal disease. Hypertensive urgency--on clonidine patch. Resume amlodipine. Previously on lisinopril which was discontinued on prior hospitalization. Hydralazine as needed. Plan for dialysis tomorrow. Nephrology consulted. We will repeat EKG and reevaluate given possible artifact. Monitor blood glucose levels, utilize insulin for diabetes management. I personally reviewed the record. Patient is interviewed and examined at bedside. Patient's care is coordinated with Dhara Steele PA-C. Please refer to the documentation above for details of patient's presentation and for discussion of other issues. (1) Diabetes Diabetes mellitus complication status: with other specified complication Diabetes mellitus type: type 1 Qualified Code(s): E10.69 - Type 1 diabetes mellitus with other specified complication
[2021-08-03] MEDS ORDERED: PROMETHAZINE HCL 12.5 MG in SODIUM CHLORIDE 0.9% 50 ML IV PRN (17:29)
[2021-08-03] MEDS ORDERED: hydrALAZINE HCL 20 MG/ML VIAL IM PRN (17:29)
[2021-08-03] MEDS: POTASSIUM CHLORIDE / WTR 10 MEQ/100 ML PLCT IV STA ×2 (17:45→17:46)
[2021-08-03] MEDS ORDERED: GLUCAGON FOR INJ 1 MG VIAL SQ PRN (19:12)
[2021-08-03] MEDS ORDERED: MECLIZINE 12.5 MG TAB PO PRN (19:12)
[2021-08-03] MEDS ORDERED: GLUCOSE 10 TABS/TUBE PO PRN (19:12)
[2021-08-03] MEDS ORDERED: CARBOHYDRATES FOR HYPOGLYCEMIA PO PRN (19:12)
[2021-08-03] MEDS ORDERED: DEXTROSE 50% 50 ML SYRINGE IV PRN (19:12)
[2021-08-03] MEDS ORDERED: GLUCOSE 40% GEL 15 GM TUBE PO PRN (19:12)
[2021-08-03] MEDS: levETIRAcetam 250 MG TAB PO SCH (20:26)
[2021-08-03] MEDS: METOCLOPRAMIDE HCL 10 MG TABLET PO SCH (20:26)
[2021-08-03] MEDS: GABAPENTIN 400 MG CAP PO SCH (20:26)
[2021-08-03] MEDS: INSULIN ASPART PER UNIT SC SCH (20:45)
[2021-08-03] MEDS ORDERED: hydrALAZINE HCL 20 MG/ML VIAL IV PRN (21:12)
[2021-08-03] MEDS: amLODIPine BESYLATE 5 MG TAB PO SCH (22:40)
--- NOTE | 2021-08-04 06:04 | Electrocardiogram Report ---
Test Reason : Blood Pressure : / mmHG Vent. Rate : 093 BPM Atrial Rate : 093 BPM P-R Int : 156 ms QRS Dur : 094 ms QT Int : 406 ms P-R-T Axes : 049 -14 059 degrees QTc Int : 504 ms Suspect unspecified pacemaker failure Normal sinus rhythm Septal infarct (cited on or before 20-DEC-2020) Prolonged QT Abnormal ECG When compared with ECG of 30-JUN-2021 17:45, No significant change was found Confirmed by Chris Duke ([id number]) on 08/04/2021 6:04:24 AM Referred By: Confirmed By:Chris Duke
[2021-08-04] MEDS ORDERED: HEPARIN SOD (PORCINE) 1000 UNIT/ML IV ONE (06:53)
[2021-08-04] MEDS ORDERED: SODIUM CHLORIDE 0.9% 1000ML 1,000 ML IV PRN (06:53)
[2021-08-04 07:48] LABS: Basophils # (auto) 0.02 K/uL (0-0.2); Basophils % (auto) 0.2 %; Eosinophils # (auto) 0.29 K/uL (0-0.5); Eosinophils % (auto) 3.1 %; Hematocrit (blood only) 32.5 % (42-52); Hemoglobin 10.6 g/dL (14.0-18.0); Immature Granulocytes # (auto) 0.03 K/uL (0.00-0.02); Immature Granulocytes % (auto) 0.3 %; Lymphocytes # (auto) 1.27 K/uL (1.2-3.4); Lymphocytes % (auto) 13.4 %; Mean Corpuscular Hemoglobin 28.7 pg (25-34); Mean Corpuscular Hgb Conc 32.6 g/dL (32-36); Mean Corpuscular Volume 88.1 fL (80-100); Mean Platelet Volume 10.7 fL (7.4-10.4); Monocytes # (auto) 0.99 K/uL (0.11-0.59); Monocytes % (auto) 10.5 %; Neutrophils # (auto) 6.85 K/uL (1.4-6.5); Neutrophils % (auto) 72.5 %; Platelet Count 273 K/uL (130-400); RDW Coefficient of Variation 14.1 % (11.5-14.5); RDW Standard Deviation 45.7 fL (36.4-46.3); Red Blood Count 3.69 M/uL (4.7-6.1); White Blood Count 9.45 K/uL (4.8-10.8)
[2021-08-04] MEDS: INSULIN ASPART PER UNIT SC SCH ×4 (08:00→20:38)
[2021-08-04] MEDS: METOCLOPRAMIDE HCL 10 MG TABLET PO SCH ×3 (08:06→20:41)
[2021-08-04] MEDS: GABAPENTIN 400 MG CAP PO SCH ×3 (08:07→20:39)
[2021-08-04] MEDS: ENOXAPARIN INJ 30 MG/0.3 ML SYR SQ SCH (08:08)
[2021-08-04] MEDS: FLUTICASONE/VILANTEROL 100/25MCG 14 PUFFS/INHALER INH SCH (08:08)
[2021-08-04] MEDS: levETIRAcetam 250 MG TAB PO SCH ×2 (08:09→20:40)
[2021-08-04] MEDS: ROSUVASTATIN CALCIUM 20 MG TAB PO SCH (08:09)
[2021-08-04] MEDS: CHECK CLONIDINE PATCH PLACEMENT SCH ×3 (08:35→16:47)
[2021-08-04 08:39] LABS: BUN Creatinine Ratio 5.2 (10-20); Creatinine Clr Calc Pharmacy 17.4 ml/min; Est GFR (African American) 15.3 ml/min; Est GFR (Non-African American) 13.2 ml/min; Magnesium 1.7 mg/dl (1.7-2.4); Potassium 3.3 mmol/L (3.5-5.1)
[2021-08-04] MEDS ORDERED: PANTOprazole 40 MG in SYRINGE 0 ML IV SCH (11:00)
--- NOTE | 2021-08-04 14:50 | Electrocardiogram Report ---
Test Reason : Blood Pressure : / mmHG Vent. Rate : 076 BPM Atrial Rate : 076 BPM P-R Int : 160 ms QRS Dur : 100 ms QT Int : 446 ms P-R-T Axes : 024 -18 050 degrees QTc Int : 501 ms Suspect unspecified pacemaker failure Normal sinus rhythm Anteroseptal infarct (cited on or before 20-DEC-2020) Prolonged QT Abnormal ECG When compared with ECG of 03-AUG-2021 11:51, No significant change was found Confirmed by Surya Polk ([id number]) on 08/04/2021 2:50:02 PM Referred By: REFERRED SELF Confirmed By:Surya Polk
--- NOTE | 2021-08-04 15:25 | Hospitalist Progress Note ---
Date of Service August 04, 2021 Assessment & Plan (1) Nausea vomiting and diarrhea: Plan: likely from gastroparesis significantly improved, tolerating diet well continue conservative management (2) Hypokalemia: Plan: repleted, recheck in am (3) Diabetic gastroparesis: Plan: - Diet modifications - Continue Reglan as taken outpatient (4) Diabetes: Plan: - Insulin sliding scale - Diabetic diet as tolerated - History of labile blood sugars during recent hospitalization - low threshold for glycemic management consult (5) HTN (hypertension): Plan: BP now normal, on norvasc, clonidine patch currently. lisinopril was stopped during last admission (6) ESRD (end stage renal disease) on dialysis: Plan: HD today (7) Diabetic peripheral neuropathy: (8) Presence of gastric pacemaker: (9) Lung cancer: (10) Seizure disorder: Admission and Anticipated Discharge Date Admission Date: August 03, 2021 Subjective Seen and examined at bedside. I know him from prior admission. He seems to be doing better from last time. States his nausea vomiting from gastroparesis had worsened and that's the reason he came to the hospital. States he had 7 episodes of vomiting in the ED and one this morning, but likely not the case per RN. No vomiting or diarrhea was witnessed this morning and he tolerated everything without issues. Denies any chest pain or shortness of breath. He is now off of oxygen. He is for HD today. Physical Exam Physical Exam: General: lying comfortably in bed, on room air, not in distress HEENT: EOMI, FANTASMA, MMM Chest: Permcath site clear, Fair breath sounds bilaterally CVS: Regular rate and rhythm, normal heart sounds, no murmur Abdomen: Soft, non tender, not distended, normal bowel sounds Neuro: Awake, alert, oriented, conversing well Extremities: no edema Results & Data Results & Data ([facility]) Vital Signs (Past 12 Hours) Vital Signs Temp Pulse Pulse Resp BP BP BP 08/04/21 14:56 36.7 C 82 18 122/70 08/04/21 11:20 82 154/90 H 08/04/21 11:09 81 166/97 H 08/04/21 11:02 37 C 08/04/21 07:09 36.8 C 68 18 171/91 H 08/04/21 04:18 36.6 C 79 18 156/86 H Pulse Ox 08/04/21 14:56 99 08/04/21 11:20 08/04/21 11:09 08/04/21 11:02 08/04/21 07:09 100 08/04/21 04:18 99 (1) Diabetes Diabetes mellitus complication status: with other specified complication Diabetes mellitus type: type 1 Qualified Code(s): E10.69 - Type 1 diabetes mellitus with other specified complication
--- NOTE | 2021-08-04 15:45 | Nephrology Consultation ---
Date of Consultation August 04, 2021 Assessment & Plan (1) ESRD (end stage renal disease) on dialysis: continue MWF HD > had HD today on my orders 3.5 hr, 2L UF -next HD on 08/07 or as clinical needs dictate -no fluid limit for now while stuttering GI issues but watch for need -daily bmp, hgb -avoid nephrotoxins (2) Hypokalemia: -ran on 3 k bath today d/t low K prior to tx; -check bmp in am; may need to gently replete K (3) Labile blood pressure: SBP today has ranged from 190 to 90 systolic. Fluid removal targets at dialysis were adjusted during tx to remove less d/t labile BP >continue to monitor History of Present Illness Reason for Consultation: ESRD on dialysis Requesting Physician: Dr Wells Attending Physician: Evan Buchanan MD History of Present Illness 55 y/o M whom I'm asked to see for dialysis needs was admitted yesterday for management of intractable n/v/d. PMH includes DM1, gastroparesis s/p gastric stim device, non small cell lung CA s/p surgery and incomplete chemo d/t frailty and s/p XRT to rib, seizure disorder. Hx of longstanding advanced CKD which progressed to ESRD during his last admission here. Admitted here 06/30-07/22 for acute hypoxic respiratory failure w/ progression of his longstanding CKD 4 to ESRD, now on HD. he dialyzes at [facility] in [place] under the care of my partner Dr Barajas via [facility]. Last HD was 08/02. He is improved clinically and tolerating diet; continued OP reglan. states he has vomited x 2 today and that diarrhea is unchanged. had a bout of protracted presyncopal sx today after HD which occurred when he got out of bed. sx have since improved. He had 2L fluid removed today; usually per his report has 3.5- 4L off. Allergies Allergy/AdvReac Type Severity Reaction Status Date / Time bee venom protein (honey bee) Allergy Mild SWELLING Verified 08/03/21 12:41 AT SITE, SOB Penicillins Allergy Unknown "SINCE Verified 08/03/21 12:41 "-Amoxicillin cat dander Allergy Unknown Verified 08/03/21 12:41 Home Medications Medication Instructions Recorded Confirmed Type epinephrine 0.3 mg/0.3 mL 0.3 mg IM Q3H PRN 05/05/18 08/03/21 History injection, auto-injector (EpiPen) blood sugar diagnostic 04/26/21 08/03/21 History flash glucose sensor (FreeStyle 04/26/21 08/03/21 History Amparo 14 Day Sensor) gabapentin 400 mg capsule 400 mg PO TID 04/26/21 08/03/21 History insulin glargine 100 unit/mL (3 7 unit SUBCUT QPM ml 04/26/21 08/03/21 History mL) subcutaneous pen (Lantus Solostar U-100 Insulin) insulin lispro 100 unit/mL 1 sliding scale dose SUBCUT 04/26/21 08/03/21 History subcutaneous solution (Humalog USEASDIRECTD U-100 Insulin) meclizine 12.5 mg tablet 12.5 mg PO TID PRN 04/26/21 08/03/21 History ondansetron HCl 4 mg tablet 4 mg PO Q8H PRN 04/26/21 08/03/21 History (Zofran) clonidine 0.2 mg/24 hr weekly 0.2 mg TRANSDERMAL WK 06/30/21 08/03/21 History transdermal patch albuterol sulfate 90 mcg/actuation 2 puff INHALATION Q4H PRN #1 07/22/21 08/03/21 Rx aerosol inhaler (Ventolin HFA) inhaler fluticasone furoate 100 1 puff INHALATION DAILY #1 inhaler 07/22/21 08/03/21 Rx mcg-vilanterol 25 mcg/dose inhalation powder (Breo Ellipta) glucagon 1 mg solution for 1 mg IM ONCE PRN #1 ea 07/22/21 08/03/21 Rx injection levetiracetam 750 mg tablet 750 mg PO BID #30 tab 07/22/21 08/03/21 Rx (Keppra) metoclopramide HCl 10 mg tablet 10 mg PO TID #30 tab 07/22/21 08/03/21 Rx (Reglan) omeprazole 40 mg capsule,delayed 40 mg PO DAILY #30 cap 07/22/21 08/03/21 Rx release oxycodone 10 mg tablet 10 mg PO Q4H PRN 7 Days #14 tab 07/22/21 08/03/21 Rx rosuvastatin 20 mg tablet 20 mg PO DAILY #30 tab 07/22/21 08/03/21 Rx Patient History Medical History Abdominal pain Abnormal finding on CT scan Acute dyspnea Acute hyponatremia Acute on chronic renal failure IVAN (acute kidney injury) Anemia Asymptomatic hypertensive urgency Chest pain No current chest pain...related to reflux per patient Chronic pain CKD (chronic kidney disease) stage 4, GFR 15-29 ml/min baseline creatinine 3 in fall 2020 w/ 1 gm proteinuria COPD (chronic obstructive pulmonary disease) Dehydration Diabetes mellitus type 2, uncontrolled Diabetic autonomic neuropathy Diabetic peripheral neuropathy Discharge planning issues DVT prophylaxis Elevated d-dimer Esophagitis ESRD (end stage renal disease) on dialysis Gastroparesis "s/p gastric stimulator" History of Crohn's disease HTN (hypertension) Hyperglycemia Hypertension Hypertensive crisis Hypoglycemia Hypomagnesemia Hypothermia Intractable nausea and vomiting Lab test negative for COVID-19 virus [place] grade C esophagitis 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 One 1 mm polyp in the ascending colon resected. One benign appearing 1 mm polyp in the rectum resected. Internal hemorrhoids; Dr. Demarco" H/O esophagogastroduodenoscopy "01/26/2015- [place] Grade B reflux esophagitis, gastritis; Dr. Major" History of cholecystectomy History of tonsillectomy and adenoidectomy Hx of total knee arthroplasty S/P lobectomy of lung "left upper lobectomy for adenoCa" On 08/05/16 16:30 Edie Mcfarland wrote "L side @ [facility] 05/25/16" Status post insertion of intrathecal pump explanted Family History Mother Diabetes Dementia Father Hypertension Diabetes Sister Crohn's disease Other Family history non-contributory Social History Smoking Status: Former smoker Tobacco Type: Cigarettes Second Hand Exposure: No; Hx Alcohol Use: No Hx Substance Use: No Preferred Language: Bhutanese Communication Ability: Effective Visual Impairment: No Limitations Tie Puller Required: No Beliefs That Will Affect Care: None marital status: Single Current Living Situation: Alone Current Living Situation Comment: has family close by and available to assist current occupational status: disabled How many Children do You have: 5 Other Information That Helps Us Care for You: No Feels Safe at Home: Yes Safety Concerns: Feels Safe At This Time Diet Comment: Carb counting caffeine: No Physical Activity Frequency: Does not Exercise Physical Activity Frequency Comment: walks when able Assistive Devices: Cane and Walker Review of Systems Review of Systems: All systems reviewed & are unremarkable except as noted in HPI & below Physical Exam Constitutional: well developed, average body habitus and cooperative Eyes: EOM intact bilaterally ENMT: Ears: no external ear abnormality Nose: no external nose abnormality Mouth: + dry oral mucous membranes Neck: no nuchal rigidity Respiratory: normal respiratory effort Auscultation: + diminished lung sounds Cardiovascular: Rate/Rhythm: regular rate and regular rhythm Extremities: no edema Gastrointestinal (Abdomen): Inspection/Auscultation: normal bowel sounds Percussion/Palpation: abdomen soft; abdomen nontender Musculoskeletal: Extremities: strength 5/5 throughout Skin: no rashes, warm and dry Neurologic: villarreal, fluent speech, no tremor Psychiatric: Orientation: oriented x 3 Results & Data ([facility]) Vital Signs (Past 12 Hours) Vital Signs Temp Pulse Pulse Resp BP BP BP 08/04/21 14:56 36.7 C 82 18 122/70 08/04/21 14:20 75 112/77 08/04/21 14:00 76 105/72 08/04/21 13:40 75 92/61 L 08/04/21 13:20 78 100/66 08/04/21 13:00 75 92/62 L 08/04/21 12:40 78 85/64 L 08/04/21 12:20 63 111/92 08/04/21 12:00 66 100/66 08/04/21 11:40 77 120/72 08/04/21 11:20 82 154/90 H 08/04/21 11:09 81 166/97 H 08/04/21 11:02 37 C 08/04/21 07:09 36.8 C 68 18 171/91 H 08/04/21 04:18 36.6 C 79 18 156/86 H Pulse Ox 08/04/21 14:56 99 08/04/21 14:20 08/04/21 14:00 08/04/21 13:40 08/04/21 13:20 08/04/21 13:00 08/04/21 12:40 08/04/21 12:20 08/04/21 12:00 08/04/21 11:40 08/04/21 11:20 08/04/21 11:09 08/04/21 11:02 08/04/21 07:09 100 08/04/21 04:18 99 Laboratory Results 08/04/21 06:14 08/04/21 06:14
[2021-08-04] MEDS ORDERED: POTASSIUM CHLORIDE CRTAB 20 MEQ TABCR PO ONE (15:56)
[2021-08-04] MEDS: amLODIPine BESYLATE 5 MG TAB PO SCH (16:11)
[2021-08-04] MEDS: HEPARIN SOD (PORCINE) 1000 UNIT/ML IV SCH ×2 (16:48→16:49)
[2021-08-04] MEDS: oxyCODONE HCL IR 5 MG TAB (IMMEDIATE RELEASE) PO PRN (20:39)
[2021-08-04] MEDS ORDERED: MELATONIN 3 MG TAB PO PRN (21:50)
[2021-08-05] MEDS: oxyCODONE HCL IR 5 MG TAB (IMMEDIATE RELEASE) PO PRN (03:41)
[2021-08-05] MEDS: HYDROmorphone INJ 0.5 MG/0.5 ML SYR IV STA ×2 (05:47→08:03)
[2021-08-05] MEDS ORDERED: HYDROmorphone INJ 0.5 MG/0.5 ML SYR ONE (08:02)
[2021-08-05] MEDS ORDERED: INSULIN GLARGINE SOLOSTAR 100 UNITS/ML 3 ML PEN SC SCH (08:15)
[2021-08-05] MEDS: INSULIN ASPART PER UNIT SC SCH ×2 (08:20→12:12)
[2021-08-05] MEDS: CHECK CLONIDINE PATCH PLACEMENT SCH ×2 (08:21)
[2021-08-05] MEDS: GABAPENTIN 400 MG CAP PO SCH ×2 (08:21→14:00)
[2021-08-05] MEDS: levETIRAcetam 250 MG TAB PO SCH (08:22)
[2021-08-05] MEDS: amLODIPine BESYLATE 5 MG TAB PO SCH (08:22)
[2021-08-05] MEDS: ROSUVASTATIN CALCIUM 20 MG TAB PO SCH (08:22)
[2021-08-05] MEDS: METOCLOPRAMIDE HCL 10 MG TABLET PO SCH ×2 (08:22→14:00)
[2021-08-05] MEDS: ENOXAPARIN INJ 30 MG/0.3 ML SYR SQ SCH (08:23)
[2021-08-05] MEDS: FLUTICASONE/VILANTEROL 100/25MCG 14 PUFFS/INHALER INH SCH (08:23)
[2021-08-05] MEDS ORDERED: PANTOprazole 40 MG TAB PO SCH (09:00)
--- NOTE | 2021-08-05 11:08 | Nephrology Progress Note ---
Date of Service August 05, 2021 Assessment & Plan (1) ESRD (end stage renal disease) on dialysis: Plan: continue MWF HD > had HD 08/04 for 3.5 hr, 2L UF -next HD on 08/07 or as clinical needs dictate -no fluid limit for now while having GI issues -daily bmp, hgb -avoid nephrotoxins -Ok to discharge from renal standpoint (2) Hypokalemia: Plan: -ran on 3 k bath yesterday d/t low K prior to tx; -check bmp in am; may need to gently replete K (3) Labile blood pressure: Plan: SBP today has ranged from 190 to 90 systolic. Fluid removal targets at dialysis were adjusted during tx to remove less d/t labile BP >continue to monitor Admission and Anticipated Discharge Date Admission Date: August 03, 2021 Subjective Seen for ESRD. He had dialysis yesterday. No shortness of breath. No leg swelling. Review of Systems Review of Systems: All other systems were reviewed and negative except as noted in HPI Physical Exam Physical Exam: General exam: Appears comfortable, no acute distress HEENT: Pupils are equal and reactive to light Neck: No JVD, neck is supple trachea is midline Respiratory system: Clear breath sounds bilaterally. Gastrointestinal: Abdomen is soft, non distended, non tender, bowel sounds are present CVS: Regular rate and rhythm. No murmurs, rubs or gallops Musculoskeletal: No joint or muscle tenderness Extremities: Non tender, no edema, peripheral pulses are present Neuro: Oriented, no tremors, no focal neurological deficits Skin: No rashes Results & Data ([facility]) Vital Signs (Past 12 Hours) Vital Signs Temp Pulse Pulse Pulse Resp BP Pulse Ox 08/05/21 08:09 36.5 C 80 20 151/81 H 98 08/05/21 07:33 82 08/05/21 04:23 36.5 C 79 16 144/80 H 98 08/04/21 23:17 36.6 C 79 18 112/75 99 Laboratory Results 08/04/21 06:14
--- NOTE | 2021-08-05 18:02 | Discharge Summary ---
Date of Service August 05, 2021 Admission HPI Per Admitting Provider This is a 55 y/o male with a complicated PMH that includes DM1, gastroparesis s/p gastric stimulator placement, non-small cell lung cancer s/p surgery and incomplete chemo secondary to intolerance, recent XRT to recurrence in left 9th rib, ESRD on HD, seizure disorder, HTN, anemia, and history of neurogenic bladder who presents to the ED with recurrent N/V/D. He notes ongoing chronic issues with abdominal pain, N/V. For the past two days, he has had worsening of the nausea and vomiting with at least seven episodes of emesis today. The chronic abdominal pain that is worse right now due to the vomiting. No hemat emesis. Started with diarrhea today - four episodes of loose stools thus far. No hematochezia. Denies fevers or chills. No antibiotics since discharged from the hospital. Chronic issues with acid reflux, which have been slightly worse recently. When discharged most recently, sent home on 2L of oxygen - has been using it most of the time but may run out if he's out of the house too long. Today he also c/o VALDEZ and dizziness. Generalized pain and weakness. Recently admitted from 06/30-07/22 with acute respiratory failure w/ hypoxia, multifocal pneumonia, acute on chronic anemia requiring transfusion of one unit of PRBCs, IVAN w/ ATN due to N/V from gastroparesis on CKD 4 --> ESRD and started on HD, which he has been attending 3x/week. Last HD was yesterday. Admission Exam Per Admitting Provider Constitutional: well developed and well nourished; no acute distress Eyes: + anicteric sclerae ENMT: moist mucus membranes Neck: trachea midline Respiratory: no respiratory distress and no labored breathing Auscultation: + diminished lung sounds (but poor inspiratory effort) Cardiovascular: Rate/Rhythm: regular rate and regular rhythm Gastrointestinal (Abdomen): Inspection/Auscultation: normal bowel sounds; abdomen not distended Percussion/Palpation: + abdomen tender (diffuse, mild) and abdomen soft Musculoskeletal: Head/Neck/Chest: normocephalic, head atraumatic and neck supple Skin: no jaundice Neurologic: moves all extremities; no focal motor deficits and not confused Principal Diagnosis Nausea vomiting likely due to gastroparesis Discharge Exam General: Sitting comfortably in bed, on room air, not in distress HEENT: EOMI, FANTASMA, MMM Chest: [facility] site clear, Fair breath sounds bilaterally CVS: Regular rate and rhythm, normal heart sounds, no murmur Abdomen: Soft, non tender, not distended, normal bowel sounds Neuro: Awake, alert, oriented, conversing well Extremities: no edema Discharge Data Allergies Allergy/AdvReac Type Severity Reaction Status Date / Time bee venom protein (honey bee) Allergy Mild SWELLING Verified 08/03/21 12:41 AT SITE, SOB Penicillins Allergy Unknown "SINCE Verified 08/03/21 12:41 "-Amoxicillin cat dander Allergy Unknown Verified 08/03/21 12:41 Consultations 08/03/21 16:21 ED Decision to Admit Stat 08/03/21 19:12 Consult Nephrology Routine Hospital Course (1) Nausea vomiting and diarrhea: likely from gastroparesis significantly improved, tolerating diet well, no more diarrhea continue conservative management (2) Hypokalemia: Repleted (3) Diabetic gastroparesis: - Diet modifications - Continue Reglan as taken outpatient (4) Diabetes: Continue insulin (5) HTN (hypertension): BP now normal, on norvasc, clonidine patch currently. lisinopril was stopped during last admission (6) ESRD (end stage renal disease) on dialysis: s/p HD yesterday, next on saturday MWF schedule (7) Diabetic peripheral neuropathy: (8) Presence of gastric pacemaker: (9) Lung cancer: (10) Seizure disorder: Total Time Total Time Spent Total Time Spent (In Minutes): 35 Discharge Plan Discharge Items Patient Disposition: Home - Self-Care Reason For Visit: INTRACTABLE N/V Discharge Diagnosis: Nausea and vomiting likely due to gastroparesis Activity: Resume your previous activity Non-emergency contact: Primary Care Provider and Kiln Drawer Call non-emergency contact if: you have any medication questions, your symptoms worsen and your pain is not controlled Follow-up/Referrals: Juan Lamb MD [Primary Care Provider] - Diet: Carb Count or DM1 and Dialysis Renal Addtl Attending Provider Instructions: Continue small frequent meals for your gastroparesis. Continue your medications. Continue with your dialysis Pending Studies at Discharge: No Stand-Alone Forms: My [employer] Private, Smoking Cessation Medications and DC Order Prescriptions: New amlodipine [Norvasc] 5 mg Tablet 5 mg PO QAM Qty: 30 RF: 0 Continued insulin lispro [Humalog U-100 Insulin] 100 unit/mL solution 1 sliding scale dose subcut USEASDIRECTD RF: 0 gabapentin 400 mg capsule 400 mg PO TID RF: 0 (DME) FreeStyle Amparo 14 Day Sensor Kit See Rx Instructions .ROUTE RF: 0 Lantus Solostar U-100 Insulin 100 unit/mL (3 mL) insulin pen 7 unit subcut QPM RF: 0 meclizine 12.5 mg tablet 12.5 mg PO TID PRN (Reason: Dizziness) RF: 0 (DME) blood sugar diagnostic Strip See Rx Instructions .ROUTE RF: 0 ondansetron HCl [Zofran] 4 mg tablet 4 mg PO Q8H PRN (Reason: Nausea) RF: 0 epinephrine [EpiPen] 0.3 mg/0.3 mL Auto-Injector 0.3 mg IM Q3H PRN (Reason: Allergic Reaction) RF: 0 clonidine 0.2 mg/24 hr patch weekly 0.2 mg transdermal WK RF: 0 Breo Ellipta 100-25 mcg/dose Blister With Device 1 puff inhalation DAILY Qty: 1 RF: 0 omeprazole 40 mg capsule,delayed release(DR/EC) 40 mg PO DAILY Qty: 30 RF: 0 levetiracetam [Keppra] 750 mg tablet 750 mg PO BID Qty: 30 RF: 0 glucagon 1 mg recon soln 1 mg IM ONCE PRN (Reason: Hypoglycemia) Qty: 1 RF: 0 albuterol sulfate [Ventolin HFA] 90 mcg/actuation Hfa Aerosol Inhaler 2 puff INHALATION Q4H PRN (Reason: Shortness Of Breath) Qty: 1 RF: 0 metoclopramide HCl [Reglan] 10 mg tablet 10 mg PO TID Qty: 30 RF: 0 rosuvastatin 20 mg tablet 20 mg PO DAILY Qty: 30 RF: 0 oxycodone 10 mg tablet 10 mg PO Q4H PRN (Reason: Severe Pain (Scale Score 7-10)) 7 Days Qty: 14 RF: 0 Discharge Orders: Discharge Order (Routine); Ordered 08/05/21 Ordered By: Evan Abarca/Other Patient Handouts: Amlodipine Oral Tablet 5 mg Admission Data Admit Date/Time: 08/03/21 17:25 Attending Provider: Evan Buchanan Admit Provider: Jose Wells Primary Care Provider: Juan Lamb Other Providers: Jose Wells ; Norma Lord Other Interventions: Discharge Summary Assessment (RN) Last Done: 08/05/21 13:47
== END 2021-08-05 14:59 | disposition home or self-care (01) ==
LOC: ED 11:42 → 2S 11:42 → SUATTDRO 17:25 → 2S 18:43

== ENCOUNTER 2021-10-20 09:00 | Inpatient (IN) ==
[2021-10-20] MEDS ORDERED: PROMETHAZINE 12.5 MG/50.5 ML BAG IV STA (09:14)
[2021-10-20] MEDS ORDERED: hydrALAZINE HCL 20 MG/ML VIAL IV STA (09:14)
[2021-10-20] MEDS ORDERED: ONDANSETRON INJ 2 MG/ML 2 ML VIAL IV STA (09:14)
[2021-10-20] MEDS ORDERED: MoRPHine SULFATE 10 MG/ML CARP/VIAL IV STA (09:14)
--- NOTE | 2021-10-20 09:20 | Emergency Department Note ---
Impression & Plan Hypertensive urgency, Anemia, Fluid overload, Vomiting ED Provider Note NAME: NIKHIL MARTINS AGE: 56 SEX: M : 1965 ARRIVES VIA: Walk-In INFORMANT: [Patient] ED PROVIDER(S): [Russell Posada MD] CHIEF COMPLAINT: Illness HISTORY OF PRESENT ILLNESS: The patient is a 56-year-old male who was at dialysis today but sent to the hospital because of his complaints. He did not have dialysis. The patient complains of vomiting, tightness in his chest, pain everywhere across his body and some shortness of breath. He has noticed some edema in his legs. The patient admits that he likely vomited his blood pressure medication this morning and that is why his pressure is so high. The patient still does make urine, he has had no urinary complaints. No diarrhea. No fever. No cough or nasal congestion. He rates all his pain as an 8/10. He states his allover body pain is likely from his neuropathy REVIEW OF SYSTEMS: See HPI for pertinent positives and negatives. A total of ten systems were reviewed and were otherwise negative. PMHx/PSHx: See Below SOCIAL HISTORY: See Below. PHYSICAL EXAM: GENERAL: Patient is in no acute distress. HEENT: No acute trauma, normocephalic atraumatic, mucous membranes moist, no nasal congestion, no scleral icterus. NECK: No stridor, no adenopathy, no meningismus, trachea is midline. LUNGS: Clear to auscultation bilaterally, no wheeze, no rhonchi, breath sounds equal. HEART: Without murmurs gallops or rubs, regular rate and rhythm. ABDOMEN: Soft, nontender, bowel sounds positive, no peritonitis. EXTREMITIES: No cyanosis, mild bilateral pedal edema, full range of motion of all the joints without pain or difficulty, no signs for acute trauma. NEUROLOGIC: Oriented x 3, no acute motor or sensory deficits, no focal weakness. SKIN: No rash, no jaundice, no diaphoresis. DIFFERENTIAL DIAGNOSIS: Infection, dehydration, missed medication dosing, acute on chronic pain, metabolic abnormality, hypo/hyperglycemia, electrolyte disturbance, anemia, hypoxia, cardiac sources, intracerebral event, toxicologic issues, stroke, TIA, as well as other pathologies. EMERGENCY DEPARTMENT COURSE/PROCEDURES: ECG: Indication was pain and vomiting. The ECG shows a normal sinus rhythm with some baseline artifact. The rate is 86. There is a potential old anterior septal infarct. There is no ST elevation, no PVCs. The QTc is 471. Continuous Cardiac Monitoring: An order was placed for continuous cardiac monitoring. The monitor shows a rate of 78 with normal sinus rhythm. MEDICAL DECISION MAKING: There is no leukocytosis. The patient is anemic but he has a history of the same. There is a normal platelet count. Creatinine was high consistent with his dialysis need. Glucose was high in the 300-400 range. No worrisome liver enzyme elevation. The patient appeared to be in a euthyroid state. ECG shows a normal sinus rhythm, no obvious acute ischemia. Cardiac enzyme testing x1 is slightly elevated, this elevation could be from cardiac strain or just mismatch secondary to his high blood pressure and dialysis need. COVID testing returned negative. Chest x-ray shows some subtle fluid overload, no pneumonia. The patient received IV hydralazine, IV morphine, IV Zofran and IV Phenergan, he was given IV insulin. Patient's blood pressure is better controlled, he seems to be more comfortable. I did speak with nephrology because of the patient's dialysis need. He can be dialyzed later today. 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 I do think a hospital stay is warranted given the high blood pressure, the high sugar and his allover pain. I am also concerned about the fact that he missed dialysis today. The on-call hospitalist was consulted. Past Med/Surg History Medical History Anemia Cancer Axillary region- current Chronic pain COPD (chronic obstructive pulmonary disease) Diabetes mellitus type 2, uncontrolled Diabetic autonomic neuropathy Diabetic peripheral neuropathy Enlarged prostate ESRD (end stage renal disease) on dialysis Dialysis M/W/F via left chest port ([facility]) Gastroparesis s/p gastric stimulator History of Crohn's disease HTN (hypertension) Hypertension Lung cancer Dx 2016 [place] SHAWN; + hilar nodes; s/p left upper lobectomy + chemo Neurogenic bladder On home oxygen therapy 2L/min NC PRN (no use x 1+ months) Orthostatic hypotension Presence of gastric pacemaker Seizure disorder Hx grand mal seizures, no seizures x1+ years Surgical History H/O colonoscopy H/O esophagogastroduodenoscopy History of cholecystectomy History of knee surgery LEFT X 17/RIGHT X 2 History of tonsillectomy and adenoidectomy Hx of total knee arthroplasty S/P lobectomy of lung SHAWN Status post insertion of intrathecal pump explanted Family History Mother Diabetes Dementia Father Hypertension Diabetes Sister Crohn's disease Other Family history non-contributory Social History Smoking Status: Former smoker Tobacco Type: Cigarettes Second Hand Exposure: No; Hx Alcohol Use: Yes Alcohol type: beer Hx Substance Use: No Preferred Language: Eritrean Communication Ability: Effective Visual Impairment: No Limitations Rubber Mill 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 Required: No Beliefs That Will Affect Care: None marital status: Single Current Living Situation: Alone Current Living Situation Comment: has family close by and available to assist current occupational status: disabled How many Children do You have: 5 Feels Safe at Home: Yes Diet Comment: Carb counting caffeine: No Physical Activity Frequency: Does not Exercise Physical Activity Frequency Comment: walks when able Assistive Devices: Cane, Glasses and Walker Allergies Allergies Allergy/AdvReac Type Severity Reaction Status Date / Time bee venom protein (honey bee) Allergy Mild Swelling Verified 10/06/21 20:32 at site, SOB cat dander Allergy Unknown Unknown Verified 10/06/21 20:32 Penicillins Allergy Unknown Amoxicillin- Verified 10/06/21 20:32 "since " Home Meds Home Medications Medication Instructions Recorded Confirmed blood sugar diagnostic 04/26/21 09/12/21 flash glucose sensor (FreeStyle 04/26/21 09/12/21 Amparo 14 Day Sensor) gabapentin 400 mg capsule 400 mg PO TID 04/26/21 10/20/21 insulin glargine 100 unit/mL (3 7 unit SUBCUT QPM ml 04/26/21 10/20/21 mL) subcutaneous pen (Lantus Solostar U-100 Insulin) insulin lispro 100 unit/mL 1 sliding scale dose SUBCUT 04/26/21 10/20/21 subcutaneous solution (Humalog USEASDIRECTD U-100 Insulin) ondansetron HCl 4 mg tablet 4 mg PO Q8H PRN 04/26/21 10/20/21 (Zofran) clonidine 0.2 mg/24 hr weekly 0.2 mg TRANSDERMAL FR 06/30/21 10/20/21 transdermal patch fentanyl 50 mcg/hr transdermal 1 patch TRANSDERMAL Q72H 09/29/21 10/20/21 patch lamotrigine 25 mg tablet (Lamictal) 37.5 mg PO QPM 09/29/21 10/20/21 lisinopril 40 mg tablet 20 mg PO QAM 09/29/21 10/20/21 omeprazole 40 mg capsule,delayed 40 mg PO QAM 09/29/21 10/20/21 release Probiotic 1 tab PO DAILY 10/20/21 10/20/21 fluticasone 250 mcg-salmeterol 50 1 inh INHALATION DAILY 10/20/21 10/20/21 mcg/dose blistr powdr for inhalation metoclopramide HCl 10 mg tablet 10 mg PO TID 10/20/21 10/20/21 rosuvastatin 20 mg tablet 20 mg PO DAILY 10/20/21 10/20/21 Previous Rx's Medication Instructions Recorded albuterol sulfate 90 mcg/actuation 2 puff INHALATION Q4H PRN #1 07/22/21 aerosol inhaler (Ventolin HFA) inhaler glucagon 1 mg solution for 1 mg IM ONCE PRN #1 ea 07/22/21 injection levetiracetam 750 mg tablet 750 mg PO BID #30 tab 07/22/21 (Keppra) oxycodone 10 mg tablet 10 mg PO Q4H PRN 7 Days #14 tab 07/22/21 Results & Data (ED) Vital Signs Vital Signs - 24 hr 10/20/21 09:02 10/20/21 09:15 10/20/21 09:42 Temperature 37.0 C Temperature Source Oral Pulse Rate 92 H 83 Pulse Rate from SpO2 Sensor 83 Pulse Rhythm Regular Pulse Strength Normal Respiratory Rate 20 9 L Respiratory Effort / Characteristics Non-Labored Spontaneous Respiratory Depth Normal Respiratory Pattern Regular Blood Pressure 215/122 H Blood Pressure Mean 153 Blood Pressure Position Sitting Pulse Oximetry 98 99 99 Oxygen Delivery Method Room Air Room Air Sepsis Recent Fever Within 48 Hours No Sepsis New/Unexplained Change in Mental Status No Sepsis Action Taken by Nursing No Action Required 10/20/21 09:48 10/20/21 09:50 10/20/21 10:00 Temperature Temperature Source Pulse Rate 83 83 80 Pulse Rate from SpO2 Sensor 83 83 80 Pulse Rhythm Pulse Strength Respiratory Rate 15 18 18 Respiratory Effort / Characteristics Respiratory Depth Respiratory Pattern Blood Pressure 177/112 H 159/98 H Blood Pressure Mean 133 118 Blood Pressure Position Pulse Oximetry 97 97 97 Oxygen Delivery Method Sepsis Recent Fever Within 48 Hours Sepsis New/Unexplained Change in Mental Status Sepsis Action Taken by Nursing 10/20/21 10:10 10/20/21 10:20 10/20/21 10:30 Temperature Temperature Source Pulse Rate 77 79 78 Pulse Rate from SpO2 Sensor 77 79 77 Pulse Rhythm Pulse Strength Respiratory Rate 18 13 18 Respiratory Effort / Characteristics Respiratory Depth Respiratory Pattern Blood Pressure 164/98 H Blood Pressure Mean 120 Blood Pressure Position Pulse Oximetry 97 98 98 Oxygen Delivery Method Sepsis Recent Fever Within 48 Hours Sepsis New/Unexplained Change in Mental Status Sepsis Action Taken by Nursing 10/20/21 10:40 10/20/21 10:50 10/20/21 11:00 Temperature Temperature Source Pulse Rate 76 77 77 Pulse Rate from SpO2 Sensor 76 77 77 Pulse Rhythm Pulse Strength Respiratory Rate 15 14 Respiratory Effort / Characteristics Respiratory Depth Respiratory Pattern Blood Pressure 159/95 H Blood Pressure Mean 116 Blood Pressure Position Pulse Oximetry 98 98 98 Oxygen Delivery Method Sepsis Recent Fever Within 48 Hours Sepsis New/Unexplained Change in Mental Status Sepsis Action Taken by Nursing 10/20/21 11:10 10/20/21 11:20 10/20/21 11:30 Temperature Temperature Source Pulse Rate 76 74 72 Pulse Rate from SpO2 Sensor 76 74 72 Pulse Rhythm Pulse Strength Respiratory Rate Respiratory Effort / Characteristics Respiratory Depth Respiratory Pattern Blood Pressure 139/85 Blood Pressure Mean 103 Blood Pressure Position Pulse Oximetry 98 98 98 Oxygen Delivery Method Sepsis Recent Fever Within 48 Hours Sepsis New/Unexplained Change in Mental Status Sepsis Action Taken by Nursing 10/20/21 11:40 10/20/21 11:50 10/20/21 12:00 Temperature Temperature Source Pulse Rate 86 Pulse Rate from SpO2 Sensor 77 78 78 Pulse Rhythm Pulse Strength Respiratory Rate Respiratory Effort / Characteristics Respiratory Depth Respiratory Pattern Blood Pressure 171/104 H Blood Pressure Mean 126 Blood Pressure Position Pulse Oximetry 98 98 98 Oxygen Delivery Method Sepsis Recent Fever Within 48 Hours Sepsis New/Unexplained Change in Mental Status Sepsis Action Taken by Nursing 10/20/21 12:10 10/20/21 12:20 10/20/21 12:30 Temperature Temperature Source Pulse Rate Pulse Rate from SpO2 Sensor 78 76 77 Pulse Rhythm Pulse Strength Respiratory Rate Respiratory Effort / Characteristics Respiratory Depth Respiratory Pattern Blood Pressure 174/112 H Blood Pressure Mean 132 Blood Pressure Position Pulse Oximetry 98 98 98 Oxygen Delivery Method Sepsis Recent Fever Within 48 Hours Sepsis New/Unexplained Change in Mental Status Sepsis Action Taken by Nursing 10/20/21 12:40 10/20/21 12:50 10/20/21 13:00 Temperature Temperature Source Pulse Rate 78 75 75 Pulse Rate from SpO2 Sensor 78 75 74 Pulse Rhythm Pulse Strength Respiratory Rate 15 16 4 L Respiratory Effort / Characteristics Respiratory Depth Respiratory Pattern Blood Pressure 150/107 H Blood Pressure Mean 121 Blood Pressure Position Pulse Oximetry 98 98 98 Oxygen Delivery Method Sepsis Recent Fever Within 48 Hours Sepsis New/Unexplained Change in Mental Status Sepsis Action Taken by Nursing 10/20/21 13:10 10/20/21 13:20 Temperature Temperature Source Pulse Rate 73 73 Pulse Rate from SpO2 Sensor 73 73 Pulse Rhythm Pulse Strength Respiratory Rate 0 L 11 L Respiratory Effort / Characteristics Respiratory Depth Respiratory Pattern Blood Pressure Blood Pressure Mean Blood Pressure Position Pulse Oximetry 98 98 Oxygen Delivery Method Sepsis Recent Fever Within 48 Hours Sepsis New/Unexplained Change in Mental Status Sepsis Action Taken by Custodial Medications Current Medication List: was personally reviewed by me Laboratory Data Attestation: I reviewed the patient's lab results. Result diagrams: 10/20/21 09:30 10/20/21 09:30 Lab Results 10/20/21 10/20/21 10/20/21 Range/Units 09:30 09:30 09:30 WBC 5.68 (4.8-10.8) K/uL RBC 3.31 L (4.7-6.1) M/uL Hgb 9.6 L (14.0-18.0) g/dL Hct 28.1 L (42-52) % MCV 84.9 (80-100) fL MCH 29.0 (25-34) pg MCHC 34.2 (32-36) g/dL RDW Std Deviation 42.7 (36.4-46.3) fL RDW Coeff of Rik 13.9 (11.5-14.5) % Plt Count 228 (130-400) K/uL MPV 11.0 H (7.4-10.4) fL Immature Gran % (Auto) 0.2 % Neut % (Auto) 65.1 % Lymph % (Auto) 18.8 % Sequoyah % (Auto) 9.9 % Eos % (Auto) 5.6 % Baso % (Auto) 0.4 % Neut # (Auto) 3.70 (1.4-6.5) K/uL Lymph # (Auto) 1.07 L (1.2-3.4) K/uL Sequoyah # (Auto) 0.56 (0.11-0.59) K/uL Eos # (Auto) 0.32 (0-0.5) K/uL Baso # (Auto) 0.02 (0-0.2) K/uL Immature Gran # (Auto) 0.01 (0.00-0.02) K/uL Sodium 134 L (136-145) mmol/L Potassium 3.4 L (3.5-5.1) mmol/L Chloride 103 (98-107) mmol/L Carbon Dioxide 21 (21-32) mmol/L Anion Gap 10 (3-11) BUN 33 H (6-23) mg/dl Creatinine 8.29 H* (0.6-1.4) mg/dl Est Cr Clr Drug Dosing 9.6 ml/min Est GFR ( Amer) 7.5 ml/min Est GFR (Non-Af Amer) 6.5 ml/min BUN/Creatinine Ratio 4.0 L (10-20) Glucose 359 H* (70-99(Fasting)) mg/dl POC Glucose (70-99) mg/dl Calcium 7.8 L (8.5-10.1) mg/dl Magnesium 1.7 (1.7-2.4) mg/dl Total Bilirubin 0.3 (0.2-1.0) mg/dl AST 15 (13-39) U/L ALT 12 (7-52) U/L Alkaline Phosphatase 112 H (34-104) U/L Troponin I High Sens 27.8 H (0-20) pg/ml Total Protein 6.4 (6.0-8.3) gm/dl Albumin 3.1 L (3.4-5.0) gm/dl Globulin 3.3 (2.5-4.0) gm/dl Albumin/Globulin Ratio 0.9 (0.9-2) TSH 1.738 (0.300-4.500) uIu/ml SARS-CoV-2, RNA, NAAT (NEGATIVE) 10/20/21 10/20/21 10/20/21 Range/Units 09:31 10:32 11:03 WBC (4.8-10.8) K/uL RBC (4.7-6.1) M/uL Hgb (14.0-18.0) g/dL Hct (42-52) % MCV (80-100) fL MCH (25-34) pg MCHC (32-36) g/dL RDW Std Deviation (36.4-46.3) fL RDW Coeff of Rik (11.5-14.5) % Plt Count (130-400) K/uL MPV (7.4-10.4) fL Immature Gran % (Auto) % Neut % (Auto) % Lymph % (Auto) % Sequoyah % (Auto) % Eos % (Auto) % Baso % (Auto) % Neut # (Auto) (1.4-6.5) K/uL Lymph # (Auto) (1.2-3.4) K/uL Sequoyah # (Auto) (0.11-0.59) K/uL Eos # (Auto) (0-0.5) K/uL Baso # (Auto) (0-0.2) K/uL Immature Gran # (Auto) (0.00-0.02) K/uL Sodium (136-145) mmol/L Potassium (3.5-5.1) mmol/L Chloride (98-107) mmol/L Carbon Dioxide (21-32) mmol/L Anion Gap (3-11) BUN (6-23) mg/dl Creatinine (0.6-1.4) mg/dl Est Cr Clr Drug Dosing ml/min Est GFR ( Amer) ml/min Est GFR (Non-Af Amer) ml/min BUN/Creatinine Ratio (10-20) Glucose (70-99(Fasting)) mg/dl POC Glucose 404 H* 366 H* (70-99) mg/dl Calcium (8.5-10.1) mg/dl Magnesium (1.7-2.4) mg/dl Total Bilirubin (0.2-1.0) mg/dl AST (13-39) U/L ALT (7-52) U/L Alkaline Phosphatase (34-104) U/L Troponin I High Sens (0-20) pg/ml Total Protein (6.0-8.3) gm/dl Albumin (3.4-5.0) gm/dl Globulin (2.5-4.0) gm/dl Albumin/Globulin Ratio (0.9-2) TSH (0.300-4.500) uIu/ml SARS-CoV-2, RNA, NAAT NEGATIVE (NEGATIVE) Administered Medications Discontinued Medications Hydralazine HCl (Hydralazine Hcl 20 Mg/Ml Vial) 10 mg IV NOW STA Stop: 10/20/21 09:15 Last Admin: 10/20/21 09:44 Dose: 10 mg Documented by: [id number] Promethazine HCl (Phenergan) 12.5 mg in 50.5 mls @ 202 mls/hr IV NOW STA Stop: 10/20/21 09:28 Last Infusion: 10/20/21 15:25 Dose: 0 mls/hr Documented by: [id number] Admin: 10/20/21 09:45 Dose: 202 mls/hr Documented by: [id number] Insulin Human Regular (Novolin-R Insulin Per Unit Charge) 10 units IV NOW STA Stop: 10/20/21 10:19 Last Admin: 10/20/21 10:37 Dose: 10 units Documented by: [id number] Cosigned by: [id number] Morphine Sulfate (Morphine Sulfate 10 Mg/Ml Carp/Vial) 6 mg IV NOW STA Stop: 10/20/21 09:15 Last Admin: 10/20/21 09:45 Dose: 6 mg Documented by: [id number] Ondansetron HCl (Ondansetron Inj 2 Mg/Ml 2 Ml Vial) 4 mg IV NOW STA Stop: 10/20/21 09:15 Last Admin: 10/20/21 09:46 Dose: 4 mg Documented by: [id number] Imaging Data Radiologist's Impression: KUB X-Ray 10/20/21 09:14 XR KUB/Abdomen 1 view CLINICAL HISTORY: vomiting TECHNIQUE: 1 view of the abdomen was obtained. Comparison: Comparison is made to abdomen radiograph 07/24/2021 FINDINGS: Right upper quadrant clips are seen. A battery-powered device is unchanged in appearance. The osseous structures are grossly unremarkable. A few gas-filled nondistended loops of small bowel are seen. A moderate amount of stool is noted within the large bowel. IMPRESSION: No evidence of bowel obstruction is seen. ACT 112: Negative or not required by law. Electronically signed by: Tan Muller M.D. 10/20/2021 9:59 AM Chest X-Ray 10/20/21 09:15 SINGLE VIEW CHEST CLINICAL HISTORY: Generalized weakness FINDINGS: And AP, portable, upright chest radiograph is compared to study dated 10/06/2021 and correlated with chest CT dated 07/16/2021. A right internal jugular central venous catheter and a left subclavian central venous infusion port are unchanged in position. The cardiomediastinal silhouette is unremarkable. There is mild pulmonary vascular congestion. No airspace consolidation is seen typical for pneumonia. A trace left pleural effusion is again noted. No pneumothorax is seen. The bony thorax is grossly intact. IMPRESSION: 1. There is mild pulmonary vascular congestion. Correlate clinically for evidence of fluid overload. 2. A trace left pleural effusion persists. ACT 112: Negative or not required by law. Electronically signed by: Russell Ty M.D. 10/20/2021 9:37 AM Discharge Plan Visit Data Chief Complaint: Illness Stated Complaint: NAUSEA, VOMITING, SHORTNESS OF BREATH, TIGHTNESS ED Provider: Russell Posada Discharge Problem: Hypertensive urgency, Anemia, Fluid overload, Vomiting Patient Disposition: Admitted As Inpatient Condition: Fair Forms Stand Alone Forms: [facility] [employer] Prescriptions Prescriptions: No Action insulin lispro [Humalog U-100 Insulin] 100 unit/mL solution 1 sliding scale dose subcut USEASDIRECTD RF: 0 gabapentin 400 mg capsule 400 mg PO TID RF: 0 (DME) FreeStyle Amparo 14 Day Sensor Kit See Rx Instructions .Route RF: 0 Lantus Solostar U-100 Insulin 100 unit/mL (3 mL) insulin pen 7 unit subcut QPM RF: 0 (DME) blood sugar diagnostic Strip See Rx Instructions .Route RF: 0 ondansetron HCl [Zofran] 4 mg tablet 4 mg PO Q8H PRN (Reason: Nausea) RF: 0 clonidine 0.2 mg/24 hr patch weekly 0.2 mg transdermal FR RF: 0 levetiracetam [Keppra] 750 mg tablet 750 mg PO BID Qty: 30 RF: 0 glucagon 1 mg recon soln 1 mg IM ONCE PRN (Reason: Hypoglycemia) Qty: 1 RF: 0 albuterol sulfate [Ventolin HFA] 90 mcg/actuation Hfa Aerosol Inhaler 2 puff INHALATION Q4H PRN (Reason: Shortness Of Breath) Qty: 1 RF: 0 oxycodone 10 mg tablet 10 mg PO Q4H PRN (Reason: Severe Pain (Scale Score 7-10)) 7 Days Qty: 14 RF: 0 omeprazole 40 mg capsule,delayed release(DR/EC) 40 mg PO QAM RF: 0 lamotrigine [Lamictal] 25 mg Tablet 37.5 mg PO QPM RF: 0 lisinopril 40 mg Tablet 20 mg PO QAM RF: 0 fentanyl 50 mcg/hr Patch 72 Hour 1 patch TRANSDERMAL Q72H RF: 0 fluticasone propion-salmeterol 250-50 mcg/dose Blister With Device 1 inh INHALATION DAILY RF: 0 metoclopramide HCl 10 mg tablet 10 mg PO TID RF: 0 rosuvastatin 20 mg tablet 20 mg PO DAILY RF: 0 Probiotic 1 tab PO DAILY RF: 0 Referrals Referrals: Juan Lamb MD [Primary Care Provider] -
--- NOTE | 2021-10-20 09:38 | XRay Report ---
SINGLE VIEW CHEST CLINICAL HISTORY: Generalized weakness FINDINGS: And AP, portable, upright chest radiograph is compared to study dated 10/06/2021 and correlat ed with chest CT dated 07/16/2021. A right internal jugular central venous catheter and a left subclav trang central venous infusion port are unchanged in position. The cardiomediastinal silhouette is unrem arkable. There is mild pulmonary vascular congestion. No airspace consolidation is seen typical for p neumonia. A trace left pleural effusion is again noted. No pneumothorax is seen. The bony thorax is g rossly intact. IMPRESSION: 1. There is mild pulmonary vascular congestion. Correlate clinically for evidence of fluid overload. 2. A trace left pleural effusion persists. ACT 112: Negative or not required by law. Electronically signed by: Russell Ty M.D. 10/20/2021 9:37 AM
[2021-10-20 09:55] LABS: Basophils # (auto) 0.02 K/uL (0-0.2); Basophils % (auto) 0.4 %; Eosinophils # (auto) 0.32 K/uL (0-0.5); Eosinophils % (auto) 5.6 %; Hematocrit (blood only) 28.1 % (42-52); Hemoglobin 9.6 g/dL (14.0-18.0); Immature Granulocytes # (auto) 0.01 K/uL (0.00-0.02); Immature Granulocytes % (auto) 0.2 %; Lymphocytes # (auto) 1.07 K/uL (1.2-3.4); Lymphocytes % (auto) 18.8 %; Mean Corpuscular Hgb Conc 34.2 g/dL (32-36); Mean Corpuscular Volume 84.9 fL (80-100); Monocytes # (auto) 0.56 K/uL (0.11-0.59); Monocytes % (auto) 9.9 %; Neutrophils % (auto) 65.1 %; Platelet Count 228 K/uL (130-400); RDW Coefficient of Variation 13.9 % (11.5-14.5); RDW Standard Deviation 42.7 fL (36.4-46.3); Red Blood Count 3.31 M/uL (4.7-6.1); White Blood Count 5.68 K/uL (4.8-10.8)
--- NOTE | 2021-10-20 10:00 | XRay Report ---
XR KUB/Abdomen 1 view CLINICAL HISTORY: vomiting TECHNIQUE: 1 view of the abdomen was obtained. Comparison: Comparison is made to abdomen radiograph 07/24/2021 FINDINGS: Right upper quadrant clips are seen. A battery-powered device is unchanged in appearance. The osseous structures are grossly unremarkable. A few gas-filled nondistended loops of small bowel are seen. A moderate amount of stool is noted within the large bowel. IMPRESSION: No evidence of bowel obstruction is seen. ACT 112: Negative or not required by law. Electronically signed by: Tan Muller M.D. 10/20/2021 9:59 AM
[2021-10-20 10:14] LABS: Albumin Globulin Ratio 0.9 (0.9-2); Albumin Level 3.1 gm/dl (3.4-5.0); Bilirubin,Total 0.3 mg/dl (0.2-1.0); Calcium 7.8 mg/dl (8.5-10.1); Creatinine Clr Calc Pharmacy 9.6 ml/min; Est GFR (African American) 7.5 ml/min; Est GFR (Non-African American) 6.5 ml/min; Globulin 3.3 gm/dl (2.5-4.0); Magnesium 1.7 mg/dl (1.7-2.4); Potassium 3.4 mmol/L (3.5-5.1); Total Protein 6.4 gm/dl (6.0-8.3)
[2021-10-20] MEDS ORDERED: NovoLIN-R INSULIN PER UNIT CHARGE IV STA (10:18)
[2021-10-20 10:19] LABS: Troponin I High Sensitivity 27.8 pg/ml (0-20)
--- NOTE | 2021-10-20 12:18 | History & Physical Report ---
Date of Service October 20, 2021 Assessment & Plan (1) Intractable nausea and vomiting: (2) Gastroparesis: (3) Presence of gastric pacemaker: Plan: Intractable nausea and vomiting. Likely related to gastroparesis Antiemetics as needed Patient reports that he takes metocloperamide at home. Resume for now. Get EKG. Monitor QTC (4) Hypertension: Plan: Hypertensive urgency. Likely due to vomiting pills per patient Currently controlled in ER Continue home meds Patient reports he only takes clonidine patch and lisinopril at home. Reports amlodipine had been stopped but could not remember when. (5) ESRD (end stage renal disease) on dialysis: Plan: On HD started 3 months ago. Patient has signs of fluid overload with cough, leg edema, chest x-rayreporting pulmonary vascular congestion and, pleural effusion trace left Nephrology consult Fluid management with dialysis Troponin mildly elevated on presentation. Likely due to end-stage renal disease. However, get EKG considering report of chest pressure and chronic generalized body pains especially in the chest Tele monitoring. Trend trop (6) Lung cancer: Plan: With mets to ribs. Gotten chemoradiation in the past Follows with oncologist Continue oxycodone as needed and fentanyl patch for pain. (7) Anemia: Plan: Anemia of chronic disease Hb at baseline (8) Diabetes: Plan: Hyperglycemic. Not in DKA Got insulin in ER. Continue sliding scale and Lantus Diabetic control diet (9) Seizure disorder: Plan: Continue home Keppra. Reports he also takes lamotrigine at home for mood problems which are currently stable. PCPs note from last month confirmed was started on lamotrigine. Continue home medicines. (10) DVT prophylaxis: Plan: Heparin subcu for DVT prophylax History of Present Illness Chief Complaint: Nausea vomiting Primary Care Provider: Juan Lamb MD 56-year-old man with history of hypertension, left lung cancer [non-small cell status post surgery, chemo, radiation] with mets to bone, seizure disorder, ESRD on hemodialysis, diabetes mellitus, gastroparesis status post gastric stimulator placement who presents with intractable nausea and vomiting that started 2 days ago. Patient reports nausea and vomiting started 2 days ago after hemodialysis. Intractable, usually due to recently ingested for 2 months. Patient has chronic generalized pain, worse in the chest, described as sharp pain all over the body Reports he has been having chest pressure since he started throwing up associated with shortness of breath. Has chronic cough thousand going on for a while, productive was yellowish sputum, unchanged. Denies any fevers, chills Denies any abdominal pain, diarrhea, constipation Still make urine occasionally. No dysuria, hematuria Reports leg swelling this morning. On presentation to the ER was noted to be hypertensive With blood pressure 215/122 Allergies Allergy/AdvReac Type Severity Reaction Status Date / Time bee venom protein (honey bee) Allergy Mild Swelling Verified 10/06/21 20:32 at site, SOB cat dander Allergy Unknown Unknown Verified 10/06/21 20:32 Penicillins Allergy Unknown Amoxicillin- Verified 10/06/21 20:32 "since " Home Medications Medication Instructions Recorded Confirmed Type blood sugar diagnostic 04/26/21 09/12/21 History flash glucose sensor (FreeStyle 04/26/21 09/12/21 History Amparo 14 Day Sensor) gabapentin 400 mg capsule 400 mg PO TID 04/26/21 10/20/21 History insulin glargine 100 unit/mL (3 7 unit SUBCUT QPM ml 04/26/21 10/20/21 History mL) subcutaneous pen (Lantus Solostar U-100 Insulin) insulin lispro 100 unit/mL 1 sliding scale dose SUBCUT 04/26/21 10/20/21 History subcutaneous solution (Humalog USEASDIRECTD U-100 Insulin) ondansetron HCl 4 mg tablet 4 mg PO Q8H PRN 04/26/21 10/20/21 History (Zofran) clonidine 0.2 mg/24 hr weekly 0.2 mg TRANSDERMAL FR 06/30/21 10/20/21 History transdermal patch albuterol sulfate 90 mcg/actuation 2 puff INHALATION Q4H PRN #1 07/22/21 10/20/21 Rx aerosol inhaler (Ventolin HFA) inhaler glucagon 1 mg solution for 1 mg IM ONCE PRN #1 ea 07/22/21 10/20/21 Rx injection levetiracetam 750 mg tablet 750 mg PO BID #30 tab 07/22/21 10/20/21 Rx (Keppra) oxycodone 10 mg tablet 10 mg PO Q4H PRN 7 Days #14 tab 07/22/21 10/20/21 Rx fentanyl 50 mcg/hr transdermal 1 patch TRANSDERMAL Q72H 09/29/21 10/20/21 History patch lamotrigine 25 mg tablet (Lamictal) 37.5 mg PO QPM 09/29/21 10/20/21 History lisinopril 40 mg tablet 20 mg PO QAM 09/29/21 10/20/21 History omeprazole 40 mg capsule,delayed 40 mg PO QAM 09/29/21 10/20/21 History release Probiotic 1 tab PO DAILY 10/20/21 10/20/21 History fluticasone 250 mcg-salmeterol 50 1 inh INHALATION DAILY 10/20/21 10/20/21 History mcg/dose blistr powdr for inhalation metoclopramide HCl 10 mg tablet 10 mg PO TID 10/20/21 10/20/21 History rosuvastatin 20 mg tablet 20 mg PO DAILY 10/20/21 10/20/21 History Past Med/Surg History Medical History Anemia Cancer Axillary region- current Chronic pain COPD (chronic obstructive pulmonary disease) Diabetes mellitus type 2, uncontrolled Diabetic autonomic neuropathy Diabetic peripheral neuropathy Enlarged prostate ESRD (end stage renal disease) on dialysis Dialysis M/W/F via left chest port ([facility]) Gastroparesis s/p gastric stimulator History of Crohn's disease HTN (hypertension) Hypertension Lung cancer Dx 2015 [facility]eno[facility] SHAWN; + hilar nodes; s/p left upper lobectomy + chemo Neurogenic bladder On home oxygen therapy 2L/min NC PRN (no use x 1+ months) Orthostatic hypotension Presence of gastric pacemaker Seizure disorder Hx grand mal seizures, no seizures x1+ years Surgical History H/O colonoscopy H/O esophagogastroduodenoscopy History of cholecystectomy History of knee surgery LEFT X 17/RIGHT X 2 History of tonsillectomy and adenoidectomy Hx of total knee arthroplasty S/P lobectomy of lung SHAWN Status post insertion of intrathecal pump explanted Family History Mother Diabetes Dementia Father Hypertension Diabetes Sister Crohn's disease Other Family history non-contributory Social History Smoking Status: Former smoker Tobacco Type: Cigarettes Second Hand Exposure: No; Hx Alcohol Use: Yes Alcohol type: beer Hx Substance Use: No Preferred Language: Upper Sorbian Communication Ability: Effective Visual Impairment: No Limitations Music Cataloguer Required: No Beliefs That Will Affect Care: None marital status: Single Current Living Situation: Alone Current Living Situation Comment: has family close by and available to assist current occupational status: disabled How many Children do You have: 5 Feels Safe at Home: Yes Diet Comment: Carb counting caffeine: No Physical Activity Frequency: Does not Exercise Physical Activity Frequency Comment: walks when able Assistive Devices: Cane, Glasses and Walker Review of Systems Review of Systems: All systems reviewed & are unremarkable except as noted in HPI & below Physical Exam Constitutional: + ill appearing (Chronic) and + well hydrated; no acute distress Eyes: PERRL, conjunctivae normal, anicteric sclerae ENMT: external ear and nose normal, oropharynx normal Respiratory: Not in respiratory distress, on room air, diminished breath sounds lung bases Cardiovascular: Rate/Rhythm: regular rate and regular rhythm S1-S2 Chest (Breasts): Additional Comments: Right anterior chest wall HD catheter, left anterior chest wall port Gastrointestinal (Abdomen): normal bowel sounds, soft, nontender, no hepatosplenomegaly Musculoskeletal: Bilateral pitting pedal edema Neurologic: PERRL, EOMI, accommodation nl, no face palsy, no dysarthria Psychiatric: A+Ox3, euthymic affect Genitourinary: No CVA tenderness Results & Data Results & Data ([place]) Vital Signs (Past 12 Hours) Vital Signs Temp Pulse Resp BP Pulse Ox 10/20/21 11:40 86 98 10/20/21 11:30 72 139/85 98 10/20/21 11:20 74 98 10/20/21 11:10 76 98 10/20/21 11:00 77 159/95 H 98 10/20/21 10:50 77 14 98 10/20/21 10:40 76 15 98 10/20/21 10:30 78 18 164/98 H 98 10/20/21 10:20 79 13 98 10/20/21 10:10 77 18 97 10/20/21 10:00 80 18 159/98 H 97 10/20/21 09:50 83 18 97 10/20/21 09:48 83 15 177/112 H 97 10/20/21 09:42 83 9 L 99 10/20/21 09:15 99 10/20/21 09:02 37.0 C 92 H 20 215/122 H 98 Laboratory Results Laboratory Results - last 24 hr 10/20/21 10/20/21 10/20/21 09:30 09:30 09:30 WBC 5.68 RBC 3.31 L Hgb 9.6 L Hct 28.1 L MCV 84.9 MCH 29.0 MCHC 34.2 RDW Std Deviation 42.7 RDW Coeff of Rik 13.9 Plt Count 228 MPV 11.0 H Immature Gran % (Auto) 0.2 Neut % (Auto) 65.1 Lymph % (Auto) 18.8 [place] % (Auto) 9.9 Eos % (Auto) 5.6 Baso % (Auto) 0.4 Neut # (Auto) 3.70 Lymph # (Auto) 1.07 L [place] # (Auto) 0.56 Eos # (Auto) 0.32 Baso # (Auto) 0.02 Immature Gran # (Auto) 0.01 Sodium 134 L Potassium 3.4 L Chloride 103 Carbon Dioxide 21 Anion Gap 10 BUN 33 H Creatinine 8.29 H* Est Cr Clr Drug Dosing 9.6 Est GFR ( Amer) 7.5 Est GFR (Non-Af Amer) 6.5 BUN/Creatinine Ratio 4.0 L Glucose 359 H* POC Glucose Calcium 7.8 L Magnesium 1.7 Total Bilirubin 0.3 AST 15 ALT 12 Alkaline Phosphatase 112 H Troponin I High Sens 27.8 H Total Protein 6.4 Albumin 3.1 L Globulin 3.3 Albumin/Globulin Ratio 0.9 TSH Levetiracetam Pending SARS-CoV-2, RNA, NAAT 10/20/21 10/20/21 10/20/21 09:30 09:31 10:32 WBC RBC Hgb Hct MCV MCH MCHC RDW Std Deviation RDW Coeff of Rik Plt Count MPV Immature Gran % (Auto) Neut % (Auto) Lymph % (Auto) [place] % (Auto) Eos % (Auto) Baso % (Auto) Neut # (Auto) Lymph # (Auto) [place] # (Auto) Eos # (Auto) Baso # (Auto) Immature Gran # (Auto) Sodium Potassium Chloride Carbon Dioxide Anion Gap BUN Creatinine Est Cr Clr Drug Dosing Est GFR ( Amer) Est GFR (Non-Af Amer) BUN/Creatinine Ratio Glucose POC Glucose 404 H* Calcium Magnesium Total Bilirubin AST ALT Alkaline Phosphatase Troponin I High Sens Total Protein Albumin Globulin Albumin/Globulin Ratio TSH 1.738 Levetiracetam SARS-CoV-2, RNA, NAAT NEGATIVE 10/20/21 11:03 WBC RBC Hgb Hct MCV MCH MCHC RDW Std Deviation RDW Coeff of Rik Plt Count MPV Immature Gran % (Auto) Neut % (Auto) Lymph % (Auto) [place] % (Auto) Eos % (Auto) Baso % (Auto) Neut # (Auto) Lymph # (Auto) [place] # (Auto) Eos # (Auto) Baso # (Auto) Immature Gran # (Auto) Sodium Potassium Chloride Carbon Dioxide Anion Gap BUN Creatinine Est Cr Clr Drug Dosing Est GFR ( Amer) Est GFR (Non-Af Amer) BUN/Creatinine Ratio Glucose POC Glucose 366 H* Calcium Magnesium Total Bilirubin AST ALT Alkaline Phosphatase Troponin I High Sens Total Protein Albumin Globulin Albumin/Globulin Ratio TSH Levetiracetam SARS-CoV-2, RNA, NAAT Code Status & VTE Plan VTE Prophylaxis Plan VTE Prophylaxis will be ordered: Yes (1) Diabetes Diabetes mellitus complication status: with other specified complication Diabetes mellitus type: type 1 Qualified Code(s): E10.69 - Type 1 diabetes mellitus with other specified complication (2) Hypertension Hypertension type: primary hypertension Qualified Code(s): I10 - Essential (primary) hypertension
--- NOTE | 2021-10-20 14:44 | Electrocardiogram Report ---
Test Reason : Blood Pressure : / mmHG Vent. Rate : 077 BPM Atrial Rate : 077 BPM P-R Int : 160 ms QRS Dur : 098 ms QT Int : 430 ms P-R-T Axes : 035 -24 020 degrees QTc Int : 486 ms Suspect unspecified pacemaker failure Normal sinus rhythm Abnormal ECG When compared with ECG of 20-OCT-2021 09:21, (unconfirmed) Premature ventricular complexes are no longer Present Confirmed by Zuhair Summers ([id number]) on 10/20/2021 2:43:35 PM Referred By: REFERRED SELF Confirmed By:Aki Summers
--- NOTE | 2021-10-20 14:44 | Electrocardiogram Report ---
Test Reason : Blood Pressure : / mmHG Vent. Rate : 086 BPM Atrial Rate : 086 BPM P-R Int : 168 ms QRS Dur : 094 ms QT Int : 394 ms P-R-T Axes : 010 -24 031 degrees QTc Int : 471 ms Suspect unspecified pacemaker failure Sinus rhythm with occasional Premature ventricular complexes Incomplete right bundle branch block Abnormal ECG When compared with ECG of 06-OCT-2021 18:21, Premature ventricular complexes are now Present Confirmed by Zuhair Summers ([id number]) on 10/20/2021 2:44:37 PM Referred By: REFERRED SELF Confirmed By:Aki Summers
[2021-10-20] MEDS ORDERED: GLUCOSE 10 TABS/TUBE PO PRN (16:40)
[2021-10-20] MEDS ORDERED: CARBOHYDRATES FOR HYPOGLYCEMIA PO PRN (16:40)
[2021-10-20] MEDS ORDERED: CHECK fentaNYL PATCH PLACEMENT SCH (16:40)
[2021-10-20] MEDS ORDERED: PHARMACY GLYCEMIC MGMT CONSULT PRN (16:40)
[2021-10-20] MEDS ORDERED: CHECK CLONIDINE PATCH PLACEMENT SCH (16:40)
[2021-10-20] MEDS ORDERED: DEXTROSE 50% 50 ML SYRINGE IV PRN (16:40)
[2021-10-20] MEDS ORDERED: GLUCOSE 40% GEL 15 GM TUBE PO PRN (16:40)
[2021-10-20] MEDS ORDERED: oxyCODONE HCL IR 5 MG TAB (IMMEDIATE RELEASE) PO PRN (16:40)
[2021-10-20] MEDS ORDERED: ALBUTEROL HFA 8 GM INHALER INH PRN (16:40)
[2021-10-20] MEDS ORDERED: GLUCAGON FOR INJ 1 MG VIAL SQ PRN (16:40)
[2021-10-20] MEDS ORDERED: INSULIN GLARGINE SOLOSTAR 100 UNITS/ML 3 ML PEN SC ONE (17:30)
[2021-10-20] MEDS ORDERED: amLODIPine BESYLATE 5 MG TAB PO ONE (17:47)
--- NOTE | 2021-10-20 17:52 | Nephrology Consultation ---
Date of Consultation October 20, 2021 Assessment & Plan (1) ESRD (end stage renal disease) on dialysis: had 3.5 hr HD today w/ 3.5L UF since admission; feels improved somewhat after tx -reeval in AM for another 2 hr tx to optimize volume status -ordered 1.5L FR; cont dialysis diet -notably on no binders >?d/t chronic GI sx; -daily bmp (2) Hypertensive urgency: s/p 3.5 L fluid removal today; reassess in am for furthe rfluid removal w/ HD -cont current BP meds could give extra ACEI or hydralazine prn if ongoing issue (3) Anemia: daily hgb while in house >> not an PROSPER candidate d/t active CA History of Present Illness Reason for Consultation: ESRD on HD Requesting Physician: Dr La Attending Physician: Julia aL MD History of Present Illness 56 y/o M whom I'm asked to see fo rdialysis needs was admitted this afternoon for intractable N/V and sent from dialysis unit w/o any tx d/t concerns for same and for HTN urgency. PMH includes DM1, gastroparesis s/p gastric stim device, non small cell lung CA s/p wedge resection and incomplete chemo d/t frailty and s/p XRT to L rib May 2021, seizure disorder, chronic pain. Hx of longstanding advanced CKD which pr ogressed to ESRD Jun 2021. He dialyzes at [facility] in [place] under the care of my partner Dr Barajas via [facility]. Last HD was 10/18 as OP. Seen here in ER earlier this month for cyclical emesis, HTN. N remains significant though improved some since arrival. his breathing which had been short and "tight" has also improved significantly after 3.5L UF this afternoon at my direction. he continues to "hurt all over" musculoskeletal eugene his ribs and with neuropathy BLE. no change to chronic voiding habits about 1c daily UOP. Allergies Allergy/AdvReac Type Severity Reaction Status Date / Time bee venom protein (honey bee) Allergy Mild Swelling Verified 10/06/21 20:32 at site, SOB cat dander Allergy Unknown Unknown Verified 10/06/21 20:32 Penicillins Allergy Unknown Amoxicillin- Verified 10/06/21 20:32 "since " Home Medications Medication Instructions Recorded Confirmed Type blood sugar diagnostic 04/26/21 09/12/21 History flash glucose sensor (FreeStyle 04/26/21 09/12/21 History Amparo 14 Day Sensor) gabapentin 400 mg capsule 400 mg PO TID 04/26/21 10/20/21 History insulin glargine 100 unit/mL (3 7 unit SUBCUT QPM ml 04/26/21 10/20/21 History mL) subcutaneous pen (Lantus Solostar U-100 Insulin) insulin lispro 100 unit/mL 1 sliding scale dose SUBCUT 04/26/21 10/20/21 History subcutaneous solution (Humalog USEASDIRECTD U-100 Insulin) ondansetron HCl 4 mg tablet 4 mg PO Q8H PRN 04/26/21 10/20/21 History (Zofran) clonidine 0.2 mg/24 hr weekly 0.2 mg TRANSDERMAL FR 06/30/21 10/20/21 History transdermal patch albuterol sulfate 90 mcg/actuation 2 puff INHALATION Q4H PRN #1 07/22/21 10/20/21 Rx aerosol inhaler (Ventolin HFA) inhaler glucagon 1 mg solution for 1 mg IM ONCE PRN #1 ea 07/22/21 10/20/21 Rx injection levetiracetam 750 mg tablet 750 mg PO BID #30 tab 07/22/21 10/20/21 Rx (Keppra) oxycodone 10 mg tablet 10 mg PO Q4H PRN 7 Days #14 tab 07/22/21 10/20/21 Rx fentanyl 50 mcg/hr transdermal 1 patch TRANSDERMAL Q72H 09/29/21 10/20/21 History patch lamotrigine 25 mg tablet (Lamictal) 37.5 mg PO QPM 09/29/21 10/20/21 History lisinopril 40 mg tablet 20 mg PO QAM 09/29/21 10/20/21 History omeprazole 40 mg capsule,delayed 40 mg PO QAM 09/29/21 10/20/21 History release Probiotic 1 tab PO DAILY 10/20/21 10/20/21 History fluticasone 250 mcg-salmeterol 50 1 inh INHALATION DAILY 10/20/21 10/20/21 Hist ory mcg/dose blistr powdr for inhalation metoclopramide HCl 10 mg tablet 10 mg PO TID 10/20/21 10/20/21 History rosuvastatin 20 mg tablet 20 mg PO DAILY 10/20/21 10/20/21 History Patient History Medical History Anemia Cancer Axillary region- current Chronic pain COPD (chronic obstructive pulmonary disease) Diabetes mellitus type 2, uncontrolled Diabetic autonomic neuropathy Diabetic peripheral neuropathy Enlarged prostate ESRD (end stage renal disease) on dialysis Dialysis M/W/F via left chest port ([facility]) Gastroparesis s/p gastric stimulator History of Crohn's disease HTN (hypertension) Hypertension Lung cancer Dx 2015 [facility]eno[place]; + hilar nodes; s/p left upper lobectomy + chemo Neurogenic bladder On home oxygen therapy 2L/min NC PRN (no use x 1+ months) Orthostatic hypotension Presence of gastric pacemaker Seizure disorder Hx grand mal seizures, no seizures x1+ years Surgical History H/O colonoscopy H/O esophagogastroduodenoscopy History of cholecystectomy History of knee surgery LEFT X 17/RIGHT X 2 History of tonsillectomy and adenoidectomy Hx of total knee arthroplasty S/P lobectomy of lung SHAWN Status post insertion of intrathecal pump explanted Family History Mother Diabetes Dementia Father Hypertension Diabetes Sister Crohn's disease Other Family history non-contributory Social History Smoking Status: Former smoker Tobacco Type: Cigarettes Second Hand Exposure: No; Hx Alcohol Use: Yes Alcohol type: beer Hx Substance Use: No Preferred Language: Frisian Communication Ability: Effective Visual Impairment: No Limitations 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 Dancing Required: No Beliefs That Will Affect Care: None marital status: Single Current Living Situation: Alone Current Living Situation Comment: has family close by and available to assist current occupational status: disabled How many Children do You have: 5 Feels Safe at Home: Yes Diet Comment: Carb counting caffeine: No Physical Activity Frequency: Does not Exercise Physical Activity Frequency Comment: walks when able Assistive Devices: Cane, Glasses and Walker Review of Systems Review of Systems: All systems reviewed & are unremarkable except as noted in HPI & below Physical Exam Constitutional: well developed, well nourished, + frail appearing and cooperative; no acute distress Eyes: EOM intact bilaterally ENMT: Ears: no external ear abnormality Nose: no external nose abnormality Mouth: + dry oral mucous membranes Neck: no nuchal rigidity Respiratory: normal respiratory effort Auscultation: + diminished lung sounds and + crackles; no wheezes Cardiovascular: Rate/Rhythm: regular rate and regular rhythm Extremities: + edema (trace-1+ BL ankles) Gastrointestinal (Abdomen): Inspection/Auscultation: normal bowel sounds Percussion/Palpation: abdomen soft; abdomen nontender Musculoskeletal: Extremities: strength 5/5 throughout Skin: no rashes, warm and dry Neurologic: villarreal, fluent speech, no tremor Psychiatric: Orientation: oriented x 3 Results & Data ([facility]) Vital Signs (Past 12 Hours) Vital Signs Temp Pulse Resp BP Pulse Ox 10/20/21 13:20 73 11 L 98 10/20/21 13:10 73 0 L 98 10/20/21 13:00 75 4 L 150/107 H 98 10/20/21 12:50 75 16 98 10/20/21 12:40 78 15 98 10/20/21 12:30 174/112 H 98 10/20/21 12:20 98 10/20/21 12:10 98 10/20/21 12:00 171/104 H 98 10/20/21 11:50 98 10/20/21 11:40 86 98 10/20/21 11:30 72 139/85 98 10/20/21 11:20 74 98 10/20/21 11:10 76 98 10/20/21 11:00 77 159/95 H 98 10/20/21 10:50 77 14 98 10/20/21 10:40 76 15 98 10/20/21 10:30 78 18 164/98 H 98 10/20/21 10:20 79 13 98 10/20/21 10:10 77 18 97 10/20/21 10:00 80 18 159/98 H 97 10/20/21 09:50 83 18 97 10/20/21 09:48 83 15 177/112 H 97 10/20/21 09:42 83 9 L 99 10/20/21 09:15 99 10/20/21 09:02 37.0 C 92 H 20 215/122 H 98 Laboratory Results 10/20/21 09:30 10/20/21 09:30 Diagnostic Findings cxr 1. There is mild pulmonary vascular congestion. Correlate clinically for evidence of fluid overload. 2. A trace left pleural effusion persists. (1) Anemia Anemia type: unspecified type Qualified Code(s): D64.9 - Anemia, unspecified
[2021-10-20] MEDS: GABAPENTIN 400 MG CAP PO SCH ×2 (18:36→21:01)
[2021-10-20] MEDS: INSULIN ASPART PER UNIT SC SCH ×2 (18:39→20:07)
[2021-10-20] MEDS: HEPARIN SOD 5,000 UNIT/0.5 ML VIAL SQ SCH (18:40)
[2021-10-20] MEDS: MoRPHine SULFATE 4 MG/ML 1 ML CARP\\VIAL IV PRN (21:00)
[2021-10-20] MEDS: levETIRAcetam 250 MG TAB PO SCH (21:01)
[2021-10-20] MEDS: lamoTRIgine 25 MG TAB PO SCH (21:01)
[2021-10-21] MEDS: MoRPHine SULFATE 4 MG/ML 1 ML CARP\\VIAL IV PRN ×7 (00:48→23:43)
[2021-10-21] MEDS: ONDANSETRON INJ 2 MG/ML 2 ML VIAL IV PRN ×3 (00:49→16:25)
[2021-10-21] MEDS: CHECK CLONIDINE PATCH PLACEMENT SCH ×3 (00:49→16:26)
[2021-10-21] MEDS: CHECK fentaNYL PATCH PLACEMENT SCH ×3 (00:49→16:26)
[2021-10-21] MEDS: hydrALAZINE HCL 20 MG/ML VIAL IV PRN ×2 (04:23→22:45)
[2021-10-21 06:23] LABS: Mean Corpuscular Hemoglobin 28.8 pg (25-34); Mean Corpuscular Hgb Conc 33.3 g/dL (32-36); Mean Corpuscular Volume 86.5 fL (80-100); Mean Platelet Volume 11.1 fL (7.4-10.4); Platelet Count 206 K/uL (130-400); RDW Coefficient of Variation 14.1 % (11.5-14.5); RDW Standard Deviation 44.5 fL (36.4-46.3); Red Blood Count 3.47 M/uL (4.7-6.1); White Blood Count 4.93 K/uL (4.8-10.8)
[2021-10-21] MEDS: HEPARIN SOD 5,000 UNIT/0.5 ML VIAL SQ SCH ×3 (06:31→20:41)
[2021-10-21 06:49] LABS: Estimated Average Glucose 214 mg/dl; Hemoglobin A1C 9.1 % (4.5-5.6)
[2021-10-21 06:50] LABS: BUN Creatinine Ratio 3.8 (10-20); Est GFR (African American) 11.8 ml/min; Est GFR (Non-African American) 10.2 ml/min; Potassium 3.7 mmol/L (3.5-5.1)
[2021-10-21] MEDS ORDERED: SODIUM CHLORIDE 0.9% 1000ML 1,000 ML IV PRN (07:02)
[2021-10-21] MEDS ORDERED: HEPARIN SOD (PORCINE) 1000 UNIT/ML IV ONE (07:02)
[2021-10-21 08:34] LABS: Iron 72 mcg/dl (35-175); Total Iron Binding Cap Calc 207 mcg/dl (250-450); Transferrin (FE) Percent Satur 35 % (20-50); Unsaturated Iron Binding Cap 135 mcg/dl (155-355)
[2021-10-21] MEDS: GABAPENTIN 400 MG CAP PO SCH ×3 (09:11→20:39)
[2021-10-21] MEDS: lisinopril 20 MG TAB PO SCH (09:11)
[2021-10-21] MEDS: PANTOprazole 40 MG TAB PO SCH (09:11)
[2021-10-21] MEDS: FLUTICASONE/VILANTEROL 100/25MCG 14 PUFFS/INHALER INH SCH (09:11)
[2021-10-21] MEDS: ROSUVASTATIN CALCIUM 20 MG TAB PO SCH (09:11)
[2021-10-21] MEDS: levETIRAcetam 250 MG TAB PO SCH ×2 (09:11→20:40)
[2021-10-21] MEDS: ADVANCED PROBIOTIC 1250 MG CAPSULE PO SCH (09:11)
[2021-10-21] MEDS: INSULIN ASPART PER UNIT SC SCH ×4 (09:12→20:41)
[2021-10-21] MEDS: HEPARIN SOD (PORCINE) 1000 UNIT/ML IV SCH (10:21)
[2021-10-21] MEDS ORDERED: fentaNYL 50 MCG/HR TDSY TD SCH (12:00)
[2021-10-21] MEDS: HEPARIN 100 UNIT/ML 5ML FLUSH FLUSH PRN (12:44)
--- NOTE | 2021-10-21 13:27 | Pharmacy Report ---
Pharmacy Glycemic Short Note 2 - Date of Service October 21, 2021 - Glycemic Short BSG Results (Last 24 hours): 10/20/21 10/20/21 10/21/21 17:52 19:43 06:00 Glucose 139 H POC Glucose 141 H 176 H 10/21/21 10/21/21 07:23 12:58 Glucose POC Glucose 143 H 134 H OUTPATIENT ANTIDIABETIC REGIMEN: * Lantus 7 units SC HS * Humalog SSI (<30 units/day) * HbA1c: 9.1% (10/21/21) ASSESSMENT: * ESTRELLITA is a 56 year old male well known to pharmacy glycemic service * Patient has historically labile BSGs while inpatient (hypo/hyperglycemia) * Complicated PMH includes ESRD, T1DM, and left Non-small cell lung cancer with mets to bone * Patient admitted with intractable nausea and vomiting following HD two days prior * Hyperglycemic on presentation (359 mg/dL), reasonably well-controlled since that time (134-176 mg/dL) * Patient received 6 units of Lantus on admission with loose Novolog coverage based on previous inpatient data * ~3 hr HD session today PLAN FOR INPATIENT GLYCEMIC CONTROL: * Basal insulin * Lantus 5-6 units SQ daily (see EHR for details) * Bolus insulin * NovoLog per scale ACHS or Q6hrs while NPO * Goal Range: Low 120 mg/dL - High 160 mg/dL * Correction Factor: 55 mg/dL/unit * Nutritional / Prandial insulin per carb ratio of 1 unit per 18 grams CHO consumed
--- NOTE | 2021-10-21 13:40 | Nephrology Progress Note ---
Date of Service October 21, 2021 Assessment & Plan (1) ESRD (end stage renal disease) on dialysis: Plan: had 3.5 hr HD today w/ 3.5L UFgoal > tolerated 3L only; feels improved somewhat after tx -next tx on 10/23 or as needs dictate -ordered 1.5L FR; cont dialysis diet -notably on no binders >?d/t chronic GI sx; -daily bmp (2) Hypertensive urgency: Plan: s/p 3.5 L fluid removal 10/20, 3L removed today -cont current BP meds could give extra ACEI or hydralazine prn if ongoing issue (3) Anemia: Plan: daily hgb while in house >> not an PROSPER candidate d/t active CA Admission and Anticipated Discharge Date Admission Date: October 20, 2021 Subjective seen shortly after return from HD today > tolerated 3L off only, limited by pain control on tx. tells me he vomited up his lunch; still soem chest tightness but this is better w/HD; pain has been "unreal;" still w/ hiccups/dry heaves Review of Systems Review of Systems: All systems reviewed & are unremarkable except as noted in Subjective Physical Exam Constitutional: well developed, well nourished, + frail appearing and cooperative; no acute distress sitting on side of bed on RA, hiccups Eyes: EOM intact bilaterally ENMT: Ears: no external ear abnormality Nose: no external nose abnormality Mouth: + dry oral mucous membranes Neck: no nuchal rigidity Respiratory: normal respiratory effort Auscultation: + diminished lung sounds and + crackles; no wheezes Cardiovascular: Rate/Rhythm: regular rate and regular rhythm Extremities: + edema (trace BL ankles) Gastrointestinal (Abdomen): Inspection/Auscultation: normal bowel sounds Percussion/Palpation: abdomen soft; abdomen nontender Musculoskeletal: Extremities: strength 5/5 throughout Skin: no rashes, warm and dry Neurologic: villarreal, fluent speech, no tremor Psychiatric: Orientation: oriented x 3 Results & Data ([facility]) Vital Signs (Past 12 Hours) Vital Signs Temp Pulse Pulse Pulse Resp BP BP 10/21/21 12:10 36.5 C 10/21/21 12:00 80 118/68 10/21/21 11:30 85 120/70 10/21/21 11:00 82 121/72 10/21/21 10:30 83 97/66 L 10/21/21 10:00 85 112/72 10/21/21 09:30 88 160/99 H 10/21/21 09:02 36.5 C 92 H 10/21/21 08:00 85 10/21/21 06:46 36 C L 93 H 18 117/78 10/21/21 02:43 36.9 C 90 18 179/99 H BP Pulse Ox 10/21/21 12:10 148/79 H 10/21/21 12:00 10/21/21 11:30 10/21/21 11:00 10/21/21 10:30 10/21/21 10:00 10/21/21 09:30 10/21/21 09:02 10/21/21 08:00 10/21/21 06:46 96 10/21/21 02:43 99 Laboratory Results 10/21/21 06:00 10/21/21 06:00 (1) Anemia Anemia type: unspecified type Qualified Code(s): D64.9 - Anemia, unspecified
--- NOTE | 2021-10-21 13:41 | Hospitalist Progress Note ---
Date of Service October 21, 2021 Assessment & Plan (1) Intractable nausea and vomiting: (2) Gastroparesis: (3) Presence of gastric pacemaker: Plan: Intractable nausea and vomiting. Likely related to gastroparesis Antiemetics as needed Continue metocloperamide Will consider to give a Emend x1 if no improvement (4) Hypertension: Plan: Hypertensive urgency. Likely due to vomiting pills per patient Currently controlled in ER Continue clonidine patch and lisinopril at home. (5) ESRD (end stage renal disease) on dialysis: Plan: Fluid overload On HD started 3 months ago. CXR showed mild pulmonary vascular congestion. Nephrology consult Pt was HD today Troponin mildly elevated on presentation. Likely due to end-stage renal disease. Troponin on admission 27, then trending down to 24 Denies any chest pain currently Continue monitor (6) Lung cancer: Plan: With mets to ribs. Gotten chemoradiation in the past Follows with oncologist Continue oxycodone as needed and fentanyl patch for pain. Follow up with pain management outpatient (7) Anemia: Plan: Anemia of chronic disease Hb 10 at baseline (8) Diabetes: Plan: Hyperglycemic. Most recent Hba1c 9.1 on 10/21/21 Continue sliding scale and Lantus continue monitor BS (9) Seizure disorder: Plan: Continue home Keppra and Lamotrigine Continue seizure precaution (10) DVT prophylaxis: Plan: Heparin subcu for DVT prophylax Admission and Anticipated Discharge Date Admission Date: October 20, 2021 Subjective Patient was seen and examined for follow-up of nausea and vomiting Sitting in chair with no acute distress Patient had hemodialysis earlier today He said that he vomited after eating his lunch Pt said that he vomited everyday and sometimes multiple times He said that emend seems to work for the nausea Denying chest pain, palpitation, dizziness, shortness of breath. Review of Systems Review of Systems: All systems reviewed & are unremarkable except as noted in Subjective Physical Exam Physical Exam: General- No acute distress Head- atraumatic Eyes- PERRL, EOMI, ENT- oropharynx clear Neck- supple, no JVD Lungs- +diminished breath sound Heart- regular rhythm; no murmur Abdomen- normal bowel sounds, soft, nontender Extremities- no calf tenderness Neuro- alert, oriented x 3; PERRL, EOMI; no facial palsy; no dysarthria Skin- warm & dry Results & Data Results & Data ([facility]) Vital Signs (Past 12 Hours) Vital Signs Temp Pulse Pulse Pulse Resp BP BP 10/21/21 12:10 36.5 C 10/21/21 12:00 80 118/68 10/21/21 11:30 85 120/70 10/21/21 11:00 82 121/72 10/21/21 10:30 83 97/66 L 10/21/21 10:00 85 112/72 10/21/21 09:30 88 160/99 H 10/21/21 09:02 36.5 C 92 H 10/21/21 08:00 85 10/21/21 06:46 36 C L 93 H 18 117/78 10/21/21 02:43 36.9 C 90 18 179/99 H BP Pulse Ox 10/21/21 12:10 148/79 H 10/21/21 12:00 10/21/21 11:30 10/21/21 11:00 10/21/21 10:30 10/21/21 10:00 10/21/21 09:30 10/21/21 09:02 10/21/21 08:00 10/21/21 06:46 96 10/21/21 02:43 99 (1) Diabetes Diabetes mellitus complication status: with other specified complication Diabetes mellitus type: type 1 Qualified Code(s): E10.69 - Type 1 diabetes mellitus with other specified complication (2) Hypertension Hypertension type: primary hypertension Qualified Code(s): I10 - Essential (primary) hypertension
[2021-10-21] MEDS ORDERED: INSULIN GLARGINE SOLOSTAR 100 UNITS/ML 3 ML PEN SC ONE (16:30)
[2021-10-21 16:49] LABS: Appearance Urine Clear (Clear); Bacteria Urine Automated Negative (Negative); Bilirubin Urine Negative (Negative); Blood Urine Trace (Negative); Color Urine Yellow; Glucose Urine UA 2+ (Negative); Ketones Urine Trace (Negative); Leukocyte Esterase Urine Negative (Negative); Nitrite Urine Negative (Negative); Protein Urine 4+ (Negative); RBC Urine Automated 0-4 /hpf (0-4); Specific Gravity Urine 1.023 (1.000-1.030); Urobilinogen Urine Negative (Negative)
[2021-10-21 17:24] LABS: Sperm Urine Present (None Prsent)
[2021-10-21] MEDS: lamoTRIgine 25 MG TAB PO SCH (20:39)
[2021-10-22] MEDS: MoRPHine SULFATE 4 MG/ML 1 ML CARP\\VIAL IV PRN ×5 (03:03→19:33)
[2021-10-22] MEDS: CHECK CLONIDINE PATCH PLACEMENT SCH ×4 (05:02→23:03)
[2021-10-22] MEDS: CHECK fentaNYL PATCH PLACEMENT SCH ×4 (05:02→23:04)
[2021-10-22] MEDS: HEPARIN SOD 5,000 UNIT/0.5 ML VIAL SQ SCH ×3 (06:04→21:23)
[2021-10-22 06:54] LABS: BUN Creatinine Ratio 4.7 (10-20); Calcium 8.3 mg/dl (8.5-10.1); Creatinine Clr Calc Pharmacy 17.8 ml/min; Est GFR (African American) 15.8 ml/min; Est GFR (Non-African American) 13.6 ml/min; Potassium 3.7 mmol/L (3.5-5.1)
[2021-10-22] MEDS: ONDANSETRON INJ 2 MG/ML 2 ML VIAL IV PRN (08:01)
[2021-10-22] MEDS: GABAPENTIN 400 MG CAP PO SCH ×3 (08:01→20:34)
[2021-10-22] MEDS: levETIRAcetam 250 MG TAB PO SCH ×2 (08:02→20:36)
[2021-10-22] MEDS: FLUTICASONE/VILANTEROL 100/25MCG 14 PUFFS/INHALER INH SCH (08:02)
[2021-10-22] MEDS: HEPARIN 100 UNIT/ML 5ML FLUSH FLUSH PRN (08:03)
[2021-10-22] MEDS: ADVANCED PROBIOTIC 1250 MG CAPSULE PO SCH (08:07)
[2021-10-22] MEDS: ROSUVASTATIN CALCIUM 20 MG TAB PO SCH (08:08)
[2021-10-22] MEDS: lisinopril 20 MG TAB PO SCH (08:08)
[2021-10-22] MEDS: PANTOprazole 40 MG TAB PO SCH (08:08)
[2021-10-22] MEDS: INSULIN ASPART PER UNIT SC SCH ×4 (08:09→20:34)
[2021-10-22] MEDS ORDERED: INSULIN GLARGINE SOLOSTAR 100 UNITS/ML 3 ML PEN SC SCH ×2 (09:00→21:00)
[2021-10-22] MEDS ORDERED: FOSAPREPITANT DIMEGLUMINE 115 MG in 0.9 % SODIUM CHLORIDE 111.1667 ML IV ONE (10:45)
[2021-10-22] MEDS: lamoTRIgine 25 MG TAB PO SCH (20:35)
--- NOTE | 2021-10-22 22:44 | Hospitalist Progress Note ---
Date of Service October 22, 2021 Assessment & Plan (1) Intractable nausea and vomiting: (2) Gastroparesis: (3) Presence of gastric pacemaker: Plan: Intractable nausea and vomiting. Likely related to gastroparesis Antiemetics as needed Continue metocloperamide Emend x1 gven today Continue monitor (4) Hypertension: Plan: Hypertensive urgency. Likely due to vomiting pills per patient Currently controlled in ER Continue clonidine patch and lisinopril at home. (5) ESRD (end stage renal disease) on dialysis: Plan: Fluid overload On HD started 3 months ago. CXR showed mild pulmonary vascular congestion. Nephrology consult Next HD schedule for tomorrow Troponin mildly elevated on presentation. Likely due to end-stage renal disease. Troponin on admission 27, then trending down to 24 Denies any chest pain currently Continue monitor (6) Lung cancer: Plan: With mets to ribs. Chronic pain Received chemoradiation in the past Follows with oncologist Continue oxycodone as needed and fentanyl patch for pain. will consult pain management since pain not control (7) Anemia: Plan: Anemia of chronic disease Hb 10 at baseline (8) Diabetes: Plan: Hyperglycemic. Most recent Hba1c 9.1 on 10/21/21 Continue sliding scale and Lantus continue monitor BS (9) Seizure disorder: Plan: Continue home Keppra and Lamotrigine Continue seizure precaution (10) DVT prophylaxis: Plan: Heparin subcu for DVT prophylax Admission and Anticipated Discharge Date Admission Date: October 20, 2021 Subjective Patient was seen and examined for follow-up of nausea and vomiting Sitting in chair with no acute distress Pt sad that he vomited about 5 times early Pt said that he vomited everyday and sometimes multiple times in a day He said that emend seems to work for the nausea Denying chest pain, palpitation, dizziness, shortness of breath. Review of Systems Review of Systems: All systems reviewed & are unremarkable except as noted in Subjective Physical Exam Physical Exam: General- No acute distress Head- atraumatic Eyes- PERRL, EOMI, ENT- oropharynx clear Neck- supple, no JVD Lungs- +diminished breath sound Heart- regular rhythm; no murmur Abdomen- normal bowel sounds, soft, nontender Extremities- no calf tenderness Neuro- alert, oriented x 3; PERRL, EOMI; no facial palsy; no dysarthria Skin- warm & dry Results & Data Results & Data ([facility]) Vital Signs (Past 12 Hours) Vital Signs Temp Pulse Pulse Pulse Resp BP BP 10/22/21 20:00 72 18 165/97 H 10/22/21 16:10 36.3 C L 70 16 109/66 10/22/21 16:00 63 10/22/21 11:20 36.5 C 80 16 140/77 Pulse Ox 10/22/21 20:00 99 10/22/21 16:10 98 10/22/21 16:00 10/22/21 11:20 99 (1) Hypertension Hypertension type: primary hypertension Qualified Code(s): I10 - Essential (primary) hypertension (2) Diabetes Diabetes mellitus complication status: with other specified complication Diabetes mellitus type: type 1 Qualified Code(s): E10.69 - Type 1 diabetes mellitus with other specified complication
[2021-10-23] MEDS: ONDANSETRON INJ 2 MG/ML 2 ML VIAL IV PRN ×2 (00:11→19:46)
[2021-10-23] MEDS: MoRPHine SULFATE 4 MG/ML 1 ML CARP\\VIAL IV PRN ×4 (00:11→19:51)
[2021-10-23] MEDS: HEPARIN SOD 5,000 UNIT/0.5 ML VIAL SQ SCH ×3 (05:39→21:04)
[2021-10-23 06:55] LABS: BUN Creatinine Ratio 5.2 (10-20); Calcium 7.7 mg/dl (8.5-10.1); Creatinine Clr Calc Pharmacy 12.1 ml/min; Est GFR (African American) 9.9 ml/min; Est GFR (Non-African American) 8.6 ml/min; Potassium 4.1 mmol/L (3.5-5.1)
[2021-10-23] MEDS: GABAPENTIN 400 MG CAP PO SCH ×3 (07:38→20:06)
[2021-10-23] MEDS: CHECK CLONIDINE PATCH PLACEMENT SCH ×2 (07:38→15:49)
[2021-10-23] MEDS: CHECK fentaNYL PATCH PLACEMENT SCH ×2 (07:38→15:49)
[2021-10-23] MEDS: PANTOprazole 40 MG TAB PO SCH (07:39)
[2021-10-23] MEDS: ROSUVASTATIN CALCIUM 20 MG TAB PO SCH (07:39)
[2021-10-23] MEDS: levETIRAcetam 250 MG TAB PO SCH ×2 (07:39→20:11)
[2021-10-23] MEDS: ADVANCED PROBIOTIC 1250 MG CAPSULE PO SCH (07:39)
[2021-10-23] MEDS: FLUTICASONE/VILANTEROL 100/25MCG 14 PUFFS/INHALER INH SCH (07:42)
[2021-10-23] MEDS ORDERED: SODIUM CHLORIDE 0.9% 1000ML 1,000 ML IV PRN (07:55)
[2021-10-23] MEDS: INSULIN ASPART PER UNIT SC SCH ×4 (08:30→20:10)
--- NOTE | 2021-10-23 08:38 | Pharmacy Report ---
Pharmacy Glycemic Short Note 2 - Date of Service October 23, 2021 - Glycemic Short BSG Results (Last 24 hours): 10/22/21 10/22/21 10/22/21 11:47 16:56 20:30 Glucose POC Glucose 115 H 115 H 156 H 10/23/21 10/23/21 06:13 07:51 Glucose 161 H POC Glucose 181 H OUTPATIENT ANTIDIABETIC REGIMEN: * Lantus 7 units SC HS * Humalog SSI (<30 units/day) * HbA1c: 9.1% (10/21/21) ASSESSMENT: 10/23/21 * BSGs very well-controlled yesterday, ranging 101-156 mg/dL * Received 6 units of insulin (100% of which was basal) * Lantus split to BID dosing yesterday, will continue * HD scheduled for today * Do not anticipate any changes to regimen today 10/21/21 * ESTRELLITA is a 56 year old male well known to pharmacy glycemic service * Patient has historically labile BSGs while inpatient (hypo/hyperglycemia) * Complicated PMH includes ESRD, T1DM, and left Non-small cell lung cancer with mets to bone * Patient admitted with intractable nausea and vomiting following HD two days prior * Hyperglycemic on presentation (359 mg/dL), reasonably well-controlled since that time (134-176 mg/dL) * Patient received 6 units of Lantus on admission with loose Novolog coverage based on previous inpatient data * ~3 hr HD session today PLAN FOR INPATIENT GLYCEMIC CONTROL: * Basal insulin * Lantus 3 units SC BID * Bolus insulin * NovoLog per scale ACHS or Q6hrs while NPO * Goal Range: Low 120 mg/dL - High 160 mg/dL * Correction Factor: 55 mg/dL/unit * Nutritional / Prandial insulin per carb ratio of 1 unit per 18 grams CHO consumed
[2021-10-23] MEDS ORDERED: INSULIN GLARGINE SOLOSTAR 100 UNITS/ML 3 ML PEN SC SCH (09:00)
[2021-10-23] MEDS ORDERED: fentaNYL 75 MCG/HR TDSY TD SCH (09:00)
--- NOTE | 2021-10-23 09:06 | Pain Management Consultation ---
Date of Consultation October 23, 2021 Assessment & Plan (1) Intractable nausea and vomiting: (2) Primary cancer of left lung metastatic to other site: (3) Diabetic gastroparesis: (4) ESRD (end stage renal disease) on dialysis: (5) Lung cancer: (6) Presence of gastric pacemaker: (7) Diabetic peripheral neuropathy: * I have increased the Fentanyl patch to 75 mcg/hr. * Order for Oxycodone 10mg x 4 hours PRN remains. * IV Morphine remains if needed for breakthrough pain. * Patient has been on multiple high dose opioid regimens over the years with limited efficacy. He had an intrathecal pump implanted containing Hydromorphone and with many dosage increases he still did not reach adequate pain relief. We have discussed realistic expectations in terms of pain relief. He is sitting in the hospital bed eating all of his breakfast and does not appear in acute pain. * He can work further with his PCP regarding medication management. Thank you for the consult. Please contact with any questions or concerns. History of Present Illness Attending Physician: Shira Pavon MD History of Present Illness Mr. Hamilton is a 56-year-old male with lung cancer with metastasis to the ribs, diabetes mellitus, diabetic peripheral neuropathy, chronic pain, COPD. He came into the Emergency Department with chest pain, SOB, and intractable nausea and vomiting. For pain he has been on most of the available medications. Years ago he did have an intrathecal pump and catheter delivery system which became infected and explanted in 2017. He has been on medication regimens including Fentanyl patch, MS Contin, Oxycodone. He has found the Fentanyl patch and MS C ontin slightly helpful. He denies any relief from Oxycodone and states that he has taken 4 tablets at a time before and it was not effective towards diminishing his pain. Patient is receiving IV Morphine 3mg x 3 hours which helps for about 2 hours at a time. He denies any side effects to the medi cations. Pain Assessment Full Body Front + Back: 1. Allergies Allergy/AdvReac Type Severity Reaction Status Date / Time bee venom protein (honey bee) Allergy Mild Swelling Verified 10/06/21 20:32 at site, SOB cat dander Allergy Unknown Unknown Verified 10/06/21 20:32 Penicillins Allergy Unknown Amoxicillin- Verified 10/06/21 20:32 "since " Home Medications Medication Instructions Recorded Confirmed Type blood sugar diagnostic 04/26/21 09/12/21 History flash glucose sensor (FreeStyle 04/26/21 09/12/21 History Amparo 14 Day Sensor) gabapentin 400 mg capsule 400 mg PO TID 04/26/21 10/20/21 History insulin glargine 100 unit/mL (3 7 unit SUBCUT QPM ml 04/26/21 10/20/21 History mL) subcutaneous pen (Lantus Solostar U-100 Insulin) insulin lispro 100 unit/mL 1 sliding scale dose SUBCUT 04/26/21 10/20/21 History subcutaneous solution (Humalog USEASDIRECTD U-100 Insulin) ondansetron HCl 4 mg tablet 4 mg PO Q8H PRN 04/26/21 10/20/21 History (Zofran) clonidine 0.2 mg/24 hr weekly 0.2 mg TRANSDERMAL FR 06/30/21 10/20/21 History transdermal patch albuterol sulfate 90 mcg/actuation 2 puff INHALATION Q4H PRN #1 07/22/21 10/20/21 Rx aerosol inhaler (Ventolin HFA) inhaler glucagon 1 mg solution for 1 mg IM ONCE PRN #1 ea 07/22/21 10/20/21 Rx injection levetiracetam 750 mg tablet 750 mg PO BID #30 tab 07/22/21 10/20/21 Rx (Keppra) oxycodone 10 mg tablet 10 mg PO Q4H PRN 7 Days #14 tab 07/22/21 10/20/21 Rx fentanyl 50 mcg/hr transdermal 1 patch TRANSDERMAL Q72H 09/29/21 10/20/21 History patch lamotrigine 25 mg tablet (Lamictal) 37.5 mg PO QPM 09/29/21 10/20/21 History lisinopril 40 mg tablet 20 mg PO QAM 09/29/21 10/20/21 History omeprazole 40 mg capsule,delayed 40 mg PO QAM 09/29/21 10/20/21 History release Probiotic 1 tab PO DAILY 10/20/21 10/20/21 History fluticasone 250 mcg-salmeterol 50 1 inh INHALATION DAILY 10/20/21 10/20/21 History mcg/dose blistr powdr for inhalation metoclopramide HCl 10 mg tablet 10 mg PO TID 10/20/21 10/20/21 History rosuvastatin 20 mg tablet 20 mg PO DAILY 10/20/21 10/20/21 History Pain History Chief Complaint Chief Complaint: Chest pain Patient History Medical History Anemia Cancer Axillary region- current Chronic pain COPD (chronic obstructive pulmonary disease) Diabetes mellitus type 2, uncontrolled Diabetic autonomic neuropathy Diabetic peripheral neuropathy Enlarged prostate ESRD (end stage renal disease) on dialysis Dialysis M/W/F via left chest port ([facility]) Gastroparesis s/p gastric stimulator History of Crohn's disease HTN (hypertension) Hypertension Lung cancer Dx 2016 [facility] SHAWN; + hilar nodes; s/p left upper lobectomy + chemo Neurogenic bladder On home oxygen therapy 2L/min NC PRN (no use x 1+ months) Orthostatic hypotension Presence of gastric pacemaker Seizure disorder Hx grand mal seizures, no seizures x1+ years Surgical History H/O colonoscopy H/O esophagogastroduodenoscopy History of cholecystectomy History of knee surgery LEFT X 17/RIGHT X 2 History of tonsillectomy and adenoidectomy Hx of total knee arthroplasty S/P lobectomy of lung SHAWN Status post insertion of intrathecal pump explanted Family History Mother Diabetes Dementia Father Hypertension Diabetes Sister Crohn's disease Other Family history non-contributory Social History Smoking Status: Former smoker Tobacco Type: Cigarettes Second Hand Exposure: No; Hx Alcohol Use: No Hx Substance Use: No Preferred Language: Yakut Communication Ability: Effective Visual Impairment: No Limitations Shipping Technician Required: No Beliefs That Will Affect Care: None marital status: Single Current Living Situation: Alone Current Living Situation Comment: has family close by and available to assist current occupational status: disabled How many Children do You have: 5 Feels Safe at Home: Yes Diet Comment: Carb counting caffeine: No Physical Activity Frequency: Does not Exercise Physical Activity Frequency Comment: walks when able Assistive Devices: Oxygen - Continuous and Walker Physical Exam Physical Exam: GENERAL: This is a 56 year old male that does not appear in any acute distress. HEAD/FACE: Normocephalic and atraumatic. EYES: No drainage or conjunctival injection. ENT: Nose without bleeding or discharge. Oral mucosa moist. NECK: Full ROM without apparent pain. No swelling or masses noted. RESPIRATORY: Patient with unlabored breathing. No signs of respiratory distress. CHEST/AXILLA: Chest movement symmetrical. No deformities noted. CARDIOVASCULAR: Patients heart rate is regular, with pulse rate as documented. No edema noted. BACK: Moves without difficulty SKIN: [place], warm and dry. No rash noted. MS/EXTREMITY: No swelling, no deformities. Moving extremities appropriately. NEURO: Alert and appears oriented. Speech is fluent. Cranial Nerves are grossly intact. PSYCH: Alert, pleasant, affect is calm
[2021-10-23] MEDS: lisinopril 20 MG TAB PO SCH (13:49)
--- NOTE | 2021-10-23 18:15 | Nephrology Progress Note ---
Date of Service October 23, 2021 Assessment & Plan (1) ESRD (end stage renal disease) on dialysis: Plan: had 3L UF first tx this admission 10/20 adn another 3L 10/21; on 10/23 3.5 hr HD w/ 3L UF; feels improved somewhat after tx -next tx on 10/25 or as needs dictate -cont 1.5L FR; cont dialysis diet -notably on no binders >?d/t chronic GI sx; -daily bmp (2) Hypertensive urgency: Plan: s/p 3.5 L fluid removal 10/20, 3L removed 10/21; 3L removed 10/23 >> improving w/ pain control and UF -cont current BP meds could give extra ACEI or hydralazine prn if ongoing issue (3) Anemia: Plan: daily hgb while in house >> not an PROSPER candidate d/t active CA Admission and Anticipated Discharge Date Admission Date: October 20, 2021 Subjective tolerated HD today; looks better; settling in to supper at my eval; no mention o f sob or uncontrolled pain or N Review of Systems Review of Systems: All systems reviewed & are unremarkable except as noted in Subjective Physical Exam Constitutional: well developed, well nourished, + frail appearing and cooperative; no acute distress Eyes: EOM intact bilaterally ENMT: Ears: no external ear abnormality Nose: no external nose abnormality Mouth: + dry oral mucous membranes Neck: no nuchal rigidity Respiratory: normal respiratory effort Auscultation: + diminished lung sounds and + crackles; no wheezes Cardiovascular: Rate/Rhythm: regular rate and regular rhythm Extremities: no edema Gastrointestinal (Abdomen): Inspection/Auscultation: normal bowel sounds Percussion/Palpation: abdomen soft; abdomen nontender Musculoskeletal: Extremities: strength 5/5 throughout and + hand abnormality (contractures) Bilateral Skin: no rashes, warm and dry Neurologic: villarreal, fluent speech, slight tremor Psychiatric: Orientation: oriented x 3 Results & Data ([facility]) Vital Signs (Past 12 Hours) Vital Signs Temp Pulse Pulse Pulse Resp BP BP 10/23/21 18:10 36.8 C 72 18 117/65 10/23/21 14:58 36.8 C 80 77 18 132/82 10/23/21 13:22 37 C 76 10/23/21 13:00 75 122/74 10/23/21 12:40 78 113/55 L 10/23/21 12:20 80 124/78 10/23/21 12:00 76 124/78 10/23/21 11:40 80 129/83 10/23/21 11:20 75 119/73 10/23/21 11:00 75 122/74 10/23/21 10:40 75 131/77 10/23/21 10:20 78 131/83 10/23/21 10:00 76 138/86 10/23/21 09:42 78 151/86 H 10/23/21 09:36 36.9 C 74 10/23/21 08:20 36.8 C 75 18 112/68 BP Pulse Ox 10/23/21 18:10 97 10/23/21 14:58 95 10/23/21 13:22 140/85 10/23/21 13:00 10/23/21 12:40 10/23/21 12:20 10/23/21 12:00 10/23/21 11:40 10/23/21 11:20 10/23/21 11:00 10/23/21 10:40 10/23/21 10:20 10/23/21 10:00 10/23/21 09:42 10/23/21 09:36 10/23/21 08:20 100 Laboratory Results 10/21/21 06:00 10/23/21 06:13 (1) Anemia Anemia type: unspecified type Qualified Code(s): D64.9 - Anemia, unspecified
[2021-10-23] MEDS: lamoTRIgine 25 MG TAB PO SCH (20:07)
[2021-10-23] MEDS: INSULIN GLARGINE SOLOSTAR 100 UNITS/ML 3 ML PEN SC SCH (22:36)
--- NOTE | 2021-10-23 23:10 | Hospitalist Progress Note ---
Date of Service October 23, 2021 Assessment & Plan (1) Intractable nausea and vomiting: (2) Gastroparesis: (3) Presence of gastric pacemaker: Plan: Intractable nausea and vomiting. Likely related to gastroparesis. Pt said that he vomited everyday and sometimes multiple times in a day Antiemetics as needed Continue metocloperamide Emend x1 gven yesterday, will plan to repeat tomorrow clinically improved Plan to discharge tomorrow (4) Hypertension: Plan: Hypertensive urgency. Likely due to vomiting pills per patient Currently controlled in ER Continue clonidine patch and lisinopril at home. (5) ESRD (end stage renal disease) on dialysis: Plan: Fluid overload On HD started 3 months ago. CXR showed mild pulmonary vascular congestion. Nephrology consult He was dialyzed today Next HD schedule for Wed Troponin mildly elevated on presentation. Likely due to end-stage renal disease. Troponin on admission 27, then trending down to 24 Denies any chest pain currently Continue monitor (6) Lung cancer: Plan: With mets to ribs. Chronic pain Received chemoradiation in the past Follows with oncologist Pain management on board Fentanyl patch increased to 75 mcg and continue breakthrough pain with oxycodone 10 mg every 4 hours (7) Anemia: Plan: Anemia of chronic disease Hb 10 at baseline (8) Diabetes: Plan: Hyperglycemic. Most recent Hba1c 9.1 on 10/21/21 Continue sliding scale and Lantus continue monitor BS (9) Seizure disorder: Plan: Continue home Keppra and Lamotrigine Continue seizure precaution (10) DVT prophylaxis: Plan: Heparin subcu for DVT prophylax Disposition Will discharge home tomorrow Admission and Anticipated Discharge Date Admission Date: October 20, 2021 Subjective Patient was seen and examined for follow-up of nausea and vomiting Sitting in chair with no acute distress Patient said the emend helped with the nausea He had hemodialysis done today Denying chest pain, palpitation, dizziness, shortness of breath. Review of Systems Review of Systems: All systems reviewed & are unremarkable except as noted in Subjective Physical Exam Physical Exam: General- No acute distress Head- atraumatic Eyes- PERRL, EOMI, ENT- oropharynx clear Neck- supple, no JVD Lungs- +diminished breath sound Heart- regular rhythm; no murmur Abdomen- normal bowel sounds, soft, nontender Extremities- no calf tenderness Neuro- alert, oriented x 3; PERRL, EOMI; no facial palsy; no dysarthria Skin- warm & dry Results & Data Results & Data ([facility]) Vital Signs (Past 12 Hours) Vital Signs Temp Pulse Pulse Pulse Resp BP BP 10/23/21 18:10 36.8 C 72 18 117/65 10/23/21 14:58 36.8 C 80 77 18 132/82 10/23/21 13:22 37 C 76 10/23/21 13:00 75 122/74 10/23/21 12:40 78 113/55 L 10/23/21 12:20 80 124/78 10/23/21 12:00 76 124/78 10/23/21 11:40 80 129/83 10/23/21 11:20 75 119/73 BP Pulse Ox 10/23/21 18:10 97 10/23/21 14:58 95 10/23/21 13:22 140/85 10/23/21 13:00 10/23/21 12:40 10/23/21 12:20 10/23/21 12:00 10/23/21 11:40 10/23/21 11:20 (1) Hypertension Hypertension type: primary hypertension Qualified Code(s): I10 - Essential (primary) hypertension (2) Diabetes Diabetes mellitus complication status: with other specified complication Diabetes mellitus type: type 1 Qualified Code(s): E10.69 - Type 1 diabetes mellitus with other specified complication
[2021-10-24] MEDS: CHECK fentaNYL PATCH PLACEMENT SCH ×4 (01:11→23:43)
[2021-10-24] MEDS: MoRPHine SULFATE 4 MG/ML 1 ML CARP\\VIAL IV PRN ×4 (03:19→20:18)
[2021-10-24] MEDS: HEPARIN SOD 5,000 UNIT/0.5 ML VIAL SQ SCH ×3 (05:57→21:20)
[2021-10-24 06:56] LABS: Hepatitis B Surface Ab, Quant 435 mIU/mL (> OR = 10); Hepatitis BE Antigen Nonreactive
[2021-10-24] MEDS: ONDANSETRON INJ 2 MG/ML 2 ML VIAL IV PRN (08:22)
[2021-10-24] MEDS ORDERED: FOSAPREPITANT DIMEGLUMINE 115 MG in 0.9 % SODIUM CHLORIDE 111.1667 ML IV ONE (08:30)
[2021-10-24] MEDS: CHECK CLONIDINE PATCH PLACEMENT SCH ×4 (09:19→23:42)
[2021-10-24] MEDS: FLUTICASONE/VILANTEROL 100/25MCG 14 PUFFS/INHALER INH SCH (09:20)
[2021-10-24] MEDS: levETIRAcetam 250 MG TAB PO SCH ×2 (09:21→20:37)
[2021-10-24] MEDS: GABAPENTIN 400 MG CAP PO SCH ×3 (09:21→20:39)
[2021-10-24] MEDS: ROSUVASTATIN CALCIUM 20 MG TAB PO SCH (09:22)
[2021-10-24] MEDS: PANTOprazole 40 MG TAB PO SCH (09:22)
[2021-10-24] MEDS: lisinopril 20 MG TAB PO SCH (09:22)
[2021-10-24] MEDS: ADVANCED PROBIOTIC 1250 MG CAPSULE PO SCH (09:22)
[2021-10-24] MEDS: INSULIN GLARGINE SOLOSTAR 100 UNITS/ML 3 ML PEN SC SCH ×2 (09:23→21:19)
[2021-10-24] MEDS: INSULIN ASPART PER UNIT SC SCH ×4 (09:37→21:18)
[2021-10-24] MEDS: HEPARIN 100 UNIT/ML 5ML FLUSH FLUSH PRN (09:45)
--- NOTE | 2021-10-24 16:55 | Hospitalist Progress Note ---
Date of Service October 24, 2021 Assessment & Plan (1) Intractable nausea and vomiting: (2) Gastroparesis: (3) Presence of gastric pacemaker: Plan: Intractable nausea and vomiting. Likely related to gastroparesis. Pt said that he vomited everyday and sometimes multiple times in a day Antiemetics as needed Continue metoclopramide Emend x1 given today clinically improved Pt said that he was dizzy and nauseated once he was getting ready to discharge Discharge instructions completed Pt would like to stay overnight and discharge early in the morning to go for HD outside before 10 am (4) Hypertension: Plan: Hypertensive urgency. Likely due to vomiting pills per patient Currently controlled in ER Continue clonidine patch and lisinopril at home. (5) ESRD (end stage renal disease) on dialysis: Plan: Fluid overload On HD started 3 months ago. CXR showed mild pulmonary vascular congestion. Nephrology consult He was dialyzed today Next HD schedule for Sat Troponin mildly elevated on presentation. Likely due to end-stage renal disease. Troponin on admission 27, then trending down to 24 Denies any chest pain currently Continue monitor (6) Lung cancer: Plan: With mets to ribs. Chronic pain Received chemoradiation in the past Follows with oncologist Pain management on board Fentanyl patch increased to 75 mcg and continue breakthrough pain with oxycodone 10 mg every 4 hours Script sent for the fentanyl Pt was advised to hold next dose of narcotic if he becomes drowsy or lethargy Advised not to drive or operate any machine while on narcotic (7) Anemia: Plan: Anemia of chronic disease Hb 10 at baseline (8) Diabetes: Plan: Hyperglycemic. Most recent Hba1c 9.1 on 10/21/21 Continue sliding scale and Lantus continue monitor BS (9) Seizure disorder: Plan: Continue home Keppra and Lamotrigine Continue seizure precaution (10) DVT prophylaxis: Plan: Heparin subcu for DVT prophylax Disposition Will discharge home tomorrow early is stable Admission and Anticipated Discharge Date Admission Date: October 20, 2021 Subjective Patient was seen and examined for follow-up of nausea and vomiting Sitting in chair with no acute distress Patient said the emend helped with the nausea He was planning to discharge this afternoon until he said that he feels dizzy and nausea He wants to stay tonight and discharge early in the morning to go to get HD outside Denying chest pain, palpitation, dizziness, shortness of breath. Review of Systems Review of Systems: All systems reviewed & are unremarkable except as noted in Subjective Physical Exam Physical Exam: General- No acute distress Head- atraumatic Eyes- PERRL, EOMI, ENT- oropharynx clear Neck- supple, no JVD Lungs- +diminished breath sound Heart- regular rhythm; no murmur Abdomen- normal bowel sounds, soft, nontender Extremities- no calf tenderness Neuro- alert, oriented x 3; PERRL, EOMI; no facial palsy; no dysarthria Skin- warm & dry Results & Data Results & Data ([facility]) Vital Signs (Past 12 Hours) Vital Signs Temp Pulse Pulse Pulse Resp BP BP 10/24/21 16:01 63 10/24/21 15:18 36.6 C 101 H 20 141/81 H 10/24/21 07:37 36.3 C L 94 H 20 122/66 10/24/21 07:18 61 Pulse Ox 10/24/21 16:01 10/24/21 15:18 99 10/24/21 07:37 95 10/24/21 07:18 (1) Hypertension Hypertension type: primary hypertension Qualified Code(s): I10 - Essential (primary) hypertension (2) Diabetes Diabetes mellitus complication status: with other specified complication Diabetes mellitus type: type 1 Qualified Code(s): E10.69 - Type 1 diabetes mellitus with other specified complication
[2021-10-24] MEDS: lamoTRIgine 25 MG TAB PO SCH (20:38)
[2021-10-25] MEDS: MoRPHine SULFATE 4 MG/ML 1 ML CARP\\VIAL IV PRN ×2 (02:11→06:25)
[2021-10-25] MEDS: HEPARIN SOD 5,000 UNIT/0.5 ML VIAL SQ SCH (05:14)
[2021-10-25] MEDS ORDERED: HEPARIN SOD (PORCINE) 1000 UNIT/ML IV SCH (06:30)
[2021-10-25] MEDS ORDERED: SODIUM CHLORIDE 0.9% 1000ML 1,000 ML IV PRN (06:30)
[2021-10-25] MEDS ORDERED: HEPARIN SOD (PORCINE) 1000 UNIT/ML IV ONE (06:30)
[2021-10-25] MEDS: ONDANSETRON INJ 2 MG/ML 2 ML VIAL IV PRN (06:32)
[2021-10-25 06:54] LABS: Hematocrit (blood only) 29.2 % (42-52); Hemoglobin 9.4 g/dL (14.0-18.0); Mean Corpuscular Hemoglobin 28.7 pg (25-34); Mean Corpuscular Hgb Conc 32.2 g/dL (32-36); Mean Platelet Volume 11.9 fL (7.4-10.4); Platelet Count 172 K/uL (130-400); RDW Coefficient of Variation 14.1 % (11.5-14.5); RDW Standard Deviation 45.9 fL (36.4-46.3); Red Blood Count 3.28 M/uL (4.7-6.1); White Blood Count 4.29 K/uL (4.8-10.8)
[2021-10-25 07:17] LABS: Calcium 7.6 mg/dl (8.5-10.1); Creatinine Clr Calc Pharmacy 11.8 ml/min; Est GFR (African American) 9.7 ml/min; Est GFR (Non-African American) 8.3 ml/min; Potassium 3.9 mmol/L (3.5-5.1)
[2021-10-25] MEDS: PANTOprazole 40 MG TAB PO SCH (08:28)
[2021-10-25] MEDS: lisinopril 20 MG TAB PO SCH (08:30)
[2021-10-25] MEDS: ADVANCED PROBIOTIC 1250 MG CAPSULE PO SCH (08:30)
[2021-10-25] MEDS: ROSUVASTATIN CALCIUM 20 MG TAB PO SCH (08:31)
[2021-10-25] MEDS: GABAPENTIN 400 MG CAP PO SCH (08:33)
[2021-10-25] MEDS: levETIRAcetam 250 MG TAB PO SCH (08:33)
[2021-10-25] MEDS: CHECK fentaNYL PATCH PLACEMENT SCH (08:34)
[2021-10-25] MEDS: CHECK CLONIDINE PATCH PLACEMENT SCH (08:34)
[2021-10-25] MEDS: FLUTICASONE/VILANTEROL 100/25MCG 14 PUFFS/INHALER INH SCH (08:34)
[2021-10-25] MEDS: INSULIN GLARGINE SOLOSTAR 100 UNITS/ML 3 ML PEN SC SCH (08:34)
[2021-10-25] MEDS: INSULIN ASPART PER UNIT SC SCH ×2 (08:36→12:34)
--- NOTE | 2021-10-25 09:26 | Hospitalist Progress Note ---
Date of Service October 25, 2021 Assessment & Plan (1) Intractable nausea and vomiting: (2) Gastroparesis: (3) Presence of gastric pacemaker: Plan: Intractable nausea and vomiting. Likely related to gastroparesis. Pt said that he vomited on 10/23/2021 and sometimes multiple times in a day Antiemetics as needed Continue metoclopramide as an outpatient Emend x1 given on 10/25/2021 Still feels nauseous this morning and minimally shaky says that he is not yet ready to be discharged this morning He will have dialysis today and following dialysis he will be discharged this afternoon Mentioned that he is physically and mentally ready to be discharged to continue with his outpatient dialysis (4) Hypertension: Plan: Hypertensive urgency. Likely due to vomiting pills per patient Currently controlled in ER Continue clonidine patch and lisinopril at home. Blood pressure remains mildly elevated at 170/83 this morning We will continue current medications to control blood pressure (5) ESRD (end stage renal disease) on dialysis: Plan: Fluid overload On HD started 3 months ago. CXR showed mild pulmonary vascular congestion. Nephrology consult-appreciate input and recommendation He will have dialysis today and likely discharge following dialysis Troponin mildly elevated on presentation. Likely due to end-stage renal disease. Troponin on admission 27, then trending down to 24 Denies any chest pain currently Continue monitor (6) Lung cancer: Plan: With mets to ribs. Chronic pain Received chemoradiation in the past Follows with oncologist Pain management on board Fentanyl patch increased to 75 mcg and continue breakthrough pain with oxycodone 10 mg every 4 hours Script sent for the fentanyl Pt was advised to hold next dose of narcotic if he becomes drowsy or lethargy Advised not to drive or operate any machine while on narcotic He denies any significant pain as of this morning (7) Anemia: Plan: Anemia of chronic disease Hb 10 at baseline (8) Diabetes: Plan: Hyperglycemic. Most recent Hba1c 9.1 on 10/21/21 Continue sliding scale and Lantus continue monitor BS (9) Seizure disorder: Plan: Continue home Keppra and Lamotrigine Continue seizure precaution No more episodes of seizures (10) DVT prophylaxis: Plan: Heparin subcu for DVT prophylax Disposition Discharge home this afternoon Admission and Anticipated Discharge Date Admission Date: October 20, 2021 Subjective 10/25/2021 The patient was seen and examined in medical telemetry unit Still complains of nausea without any vomiting and generally shakynothing unusual for him Denies any other symptoms He cannot make of that dialysis today as an outpatient at 10 AM He is physically and mentally ready to be discharged following dialysis this afternoon Review of Systems Review of Systems: All systems reviewed and are unremarkable except as noted below Gastrointestinal: Nausea without vomiting Neurologic: Minimal shakes involving the extremities Physical Exam Physical Exam: Sitting at the edge of the bed without any acute distress Constitutional: well developed, well nourished and + ill appearing Eyes: PERRL, conjunctivae normal, anicteric sclerae ENMT: external ear and nose normal, oropharynx normal Neck: trachea midline, no thyromegaly Respiratory: no respiratory distress Auscultation: + diminished lung sounds; no crackles and no wheezes Cardiovascular: Rate/Rhythm: regular rate and regular rhythm; not tachycardic Extremities: + edema (1+ edema bilaterally) Gastrointestinal (Abdomen): Inspection/Auscultation: normal bowel sounds; abdomen not distended Percussion/Palpation: abdomen soft; abdomen nontender Musculoskeletal: No acute arthritis in any joint Neurologic: Has minimal shakes involving the extremities. Generally weak without any focal neurodeficit Psychiatric: A+Ox3, euthymic affect Results & Data Results & Data ([facility]) Vital Signs (Past 12 Hours) Vital Signs Pulse Pulse Pulse Resp BP Pulse Ox 10/25/21 07:39 59 L 10/25/21 07:17 58 L 18 170/83 H 97 10/25/21 04:20 55 L 18 148/78 H 100 10/24/21 22:40 61 18 128/79 100 10/24/21 22:20 60 Laboratory Results Short CBC 10/25/21 Range/Units 06:14 WBC 4.29 L (4.8-10.8) K/uL Hgb 9.4 L (14.0-18.0) g/dL Hct 29.2 L (42-52) % Plt Count 172 (130-400) K/uL BMP 10/25/21 06:14 Sodium 133 L Potassium 3.9 Chloride 98 Carbon Dioxide 28 BUN 27 H Creatinine 6.74 H* Glucose 166 H Calcium 7.6 L Medications Administered Current Inpatient Medications Albuterol (Albuterol Hfa 8 Gm Inhaler) 2 puffs INH Q4R PRN PRN Reason: Shortness Of Breath Stop: 11/19/21 16:39 Clonidine HCl (Clonidine Hcl 0.2 Mg/24 Hr Transderm Sys) 1 patch TD Q7D@0900 [facility] Stop: 11/24/21 08:59 Last Admin: 10/25/21 08:31 Dose: 1 patch Documented by: Dextrose (Dextrose 50% 50 Ml Syringe) 25 - 50 ml IV UD PRN; Protocol PRN Reason: Hypoglycemia Protocol Stop: 11/19/21 16:39 Fentanyl (Fentanyl 75 Mcg/Hr Tdsy) 75 mcg TD Q72H DAMIR Stop: 11/06/21 08:59 Last Admin: 10/23/21 09:23 Dose: 75 mcg Documented by: Fluticasone/Vilanterol (Fluticasone/Vilanterol 100/25mcg 14 Puffs/Inhaler) 1 puffs INH DAILY [facility]; Protocol Stop: 11/20/21 08:59 Last Admin: 10/25/21 08:34 Dose: 1 puffs Documented by: Gabapentin (Gabapentin 400 Mg Cap) 400 mg PO TID [facility] Stop: 11/19/21 17:59 Last Admin: 10/25/21 08:33 Dose: 400 mg Documented by: Glucagon (Glucagon For Inj 1 Mg Vial) 1 mg SQ UD PRN; Protocol PRN Reason: Hypoglycemia Protocol Stop: 11/19/21 16:39 Glucose (Glucose 10 Tabs/Tube) 4 - 8 tabs PO UD PRN; Protocol PRN Reason: Hypoglycemia Protocol Stop: 11/19/21 16:39 Glucose (Glucose 40% Gel 15 Gm Tube) 15 - 30 gm PO UD PRN; Protocol PRN Reason: Hypoglycemia Protocol Stop: 11/19/21 16:39 Heparin Sodium (Porcine) (Heparin Sod 5,000 Unit/0.5 Ml Vial) 5,000 units SQ Q8 [facility]IR Stop: 11/19/21 17:59 Last Admin: 10/25/21 05:14 Dose: 5,000 units Documented by: Heparin Sodium (Porcine) (Heparin 100 Unit/Ml 5ml Flush) 5 ml FLUSH PRN PRN PRN Reason: Flush Stop: 11/20/21 01:30 Last Admin: 10/24/21 09:45 Dose: 5 ml Documented by: Hydralazine HCl (Hydralazine Hcl 20 Mg/Ml Vial) 5 mg IV Q6H PRN PRN Reason: BP persistently >160/90 Stop: 11/19/21 16:39 Last Admin: 10/21/21 22:45 Dose: 5 mg Documented by: Sodium Chloride (Nss 1000ml) 1,000 mls @ 0 mls/hr IV .Q0M PRN PRN Reason: For Hemodialysis Use ONLY Stop: 10/25/21 12:29 Insulin Aspart (Insulin Aspart Per Unit) 0 units SC ACHS [facility] Stop: 11/19/21 17:29 Last Admin: 10/25/21 08:36 Dose: 3 units Documented by: Insulin Glargine (Insulin Glargine Solostar 100 Units/Ml 3 Ml Pen) 3 units SC BID [facility] Stop: 11/22/21 08:59 Last Admin: 10/25/21 08:34 Dose: 3 units Documented by: Lactobacillus Acidophilus (Advanced Probiotic 1250 Mg Capsule) 2 cap PO DAILY [facility]; Protocol Stop: 11/20/21 08:59 Last Admin: 10/25/21 08:30 Dose: 2 cap Documented by: Lamotrigine (Lamotrigine 25 Mg Tab) 37.5 mg PO QPM [facility] Stop: 11/19/21 20:59 Last Admin: 10/24/21 20:38 Dose: 37.5 mg Documented by: Levetiracetam (Levetiracetam 250 Mg Tab) 750 mg PO BID [facility] Stop: 11/19/21 20:59 Last Admin: 10/25/21 08:33 Dose: 750 mg Documented by: Lisinopril (Lisinopril 20 Mg Tab) 20 mg PO QAM [facility] Stop: 11/20/21 08:59 Last Admin: 10/25/21 08:30 Dose: 20 mg Documented by: Miscellaneous (Carbohydrates For Hypoglycemia ) 15 - 30 gm PO UD PRN PRN Reason: Hypoglycemia Protocol Stop: 11/19/21 16:39 Miscellaneous (Check Fentanyl Patch Placement) 1 ea N/A QS [facility] Stop: 11/20/21 00:00 Last Admin: 10/25/21 08:34 Dose: 1 ea Documented by: Miscellaneous (Remove Clonidine Patch) 1 ea N/A CQWK [facility] Stop: 11/24/21 08:58 Last Admin: 10/25/21 08:34 Dose: 1 ea Documented by: Miscellaneous (Check Clonidine Patch Placement) 1 ea N/A QS [facility] Stop: 11/20/21 00:00 Last Admin: 10/25/21 08:34 Dose: 1 ea Documented by: Miscellaneous (Fentanyl Patch Remove & Waste) 1 ea N/A Q3D [facility] Stop: 11/22/21 08:58 Last Admin: 10/23/21 09:43 Dose: 1 ea Documented by: Miscellaneous Information (Pharmacy Glycemic Mgmt Consult) 1 ea N/A UD PRN; Protocol PRN Reason: Consult Stop: 11/19/21 16:39 Morphine Sulfate (Morphine Sulfate 4 Mg/Ml 1 Ml Carp\Vial) 3 mg IV Q3H PRN PRN Reason: Pain Stop: 11/03/21 20:23 Last Admin: 10/25/21 06:25 Dose: 3 mg Documented by: Ondansetron HCl (Ondansetron Inj 2 Mg/Ml 2 Ml Vial) 4 mg IV Q8H PRN PRN Reason: nausea and vomiting Stop: 11/19/21 16:39 Last Admin: 10/25/21 06:32 Dose: 4 mg Documented by: Oxycodone HCl (Oxycodone Hcl Ir 5 Mg Tab (Immediate Release)) 10 mg PO Q4H PRN PRN Reason: Severe Pain (Scale Score 7-10) Stop: 11/03/21 16:39 Pantoprazole Sodium (Pantoprazole 40 Mg Tab) 40 mg PO QAM [facility]; Protocol Stop: 11/20/21 08:59 Last Admin: 10/25/21 08:28 Dose: 40 mg Documented by: Rosuvastatin Calcium (Rosuvastatin Calcium 20 Mg Tab) 20 mg PO DAILY [facility] Stop: 11/20/21 08:59 Last Admin: 10/25/21 08:31 Dose: 20 mg Documented by: (1) Hypertension Hypertension type: primary hypertension Qualified Code(s): I10 - Essential (primary) hypertension (2) Diabetes Diabetes mellitus complication status: with other specified complication Diabetes mellitus type: type 1 Qualified Code(s): E10.69 - Type 1 diabetes mellitus with other specified complication
--- NOTE | 2021-10-25 12:04 | Nephrology Progress Note ---
Date of Service October 25, 2021 Assessment & Plan (1) ESRD (end stage renal disease) on dialysis: Plan: had 3L UF first tx this admission 10/20 adn another 3L 10/21; on 10/23 3.5 hr HD w/ 3L UF; feels improved somewhat after tx -next tx on 10/26As an outpatient. -From renal standpoint patient can be discharged today to continue dialysis outpatient tomorrow and Saturday. or as needs dictate (2) Hypertensive urgency: Plan: s/p 3.5 L fluid removal 10/20, 3L removed 10/21; 3L removed 10/23 >> improving w/ pain control and UF -cont current BP meds (3) Anemia: Plan: daily hgb while in house >> not an PROSPER candidate d/t active CA Admission and Anticipated Discharge Date Admission Date: October 20, 2021 Subjective Seen for ESRD. No shortness of breath. He has intermittent nausea. Review of Systems Review of Systems: All other systems were reviewed and negative except as noted in HPI Physical Exam Physical Exam: General exam: Appears comfortable, no acute distress HEENT: Pupils are equal and reactive to light Neck: No JVD, neck is supple trachea is midline Respiratory system: Clear breath sounds bilaterally. Gastrointestinal: Abdomen is soft, non distended, non tender, bowel sounds are present CVS: Regular rate and rhythm. No murmurs, rubs or gallops Musculoskeletal: No joint or muscle tenderness Extremities: Non tender, no edema, peripheral pulses are present Neuro: Oriented, no tremors, no focal neurological deficits Skin: No rashes Results & Data ([facility]) Vital Signs (Past 12 Hours) Vital Signs Temp Pulse Pulse Pulse Resp BP BP 10/25/21 11:49 36.6 C 55 L 107 H 20 105/61 174/89 H 10/25/21 11:14 36.6 C 107 H 20 174/89 H 10/25/21 07:39 59 L 10/25/21 07:17 58 L 18 170/83 H 10/25/21 04:20 55 L 18 148/78 H Pulse Ox 10/25/21 11:49 97 10/25/21 11:14 97 10/25/21 07:39 10/25/21 07:17 97 10/25/21 04:20 100 Laboratory Results 10/25/21 06:14 10/25/21 06:14 WBC 4.29 L RBC 3.28 L MCV 89.0 MCH 28.7 MCHC 32.2 RDW Std Deviation 45.9 RDW Coeff of Rik 14.1 Plt Count 172 MPV 11.9 H (1) Anemia Anemia type: unspecified type Qualified Code(s): D64.9 - Anemia, unspecified
--- NOTE | 2021-10-25 18:49 | Discharge Summary ---
Date of Service October 25, 2021 Admission HPI Per Admitting Provider 56-year-old man with history of hypertension, left lung cancer [non-small cell status post surgery, chemo, radiation] with mets to bone, seizure disorder, ESRD on hemodialysis, diabetes mellitus, gastroparesis status post gastric stimulator placement who presents with intractable nausea and vomiting that started 2 days ago. Patient reports nausea and vomiting started 2 days ago after hemodialysis. Intractable, usually due to recently ingested for 2 months. Patient has chronic generalized pain, worse in the chest, described as sharp pain all over the body Reports he has been having chest pressure since he started throwing up associated with shortness of breath. Has chronic cough thousand going on for a while, productive was yellowish sputum, unchanged. Denies any fevers, chills Denies any abdominal pain, diarrhea, constipation Still make urine occasionally. No dysuria, hematuria Reports leg swelling this morning. On presentation to the ER was noted to be hypertensive With blood pressure 215/122 Admission Exam Per Admitting Provider Constitutional: + ill appearing (Chronic) and + well hyd rated; no acute distress Eyes: PERRL, conjunctivae normal, anicteric sclerae ENMT: external ear and nose normal, oropharynx normal Respiratory: Not in respiratory distress, on room air, diminished breath sounds lung bases Cardiovascular: Rate/Rhythm: regular rate and regular rhythm S1-S2 Chest (Breasts): Additional Comments: Right anterior chest wall HD catheter, left anterior chest wall port Gastrointestinal (Abdomen): normal bowel sounds, soft, nontender, no hepatosplenomegaly Musculoskeletal: Bilateral pitting pedal edema Neurologic: PERRL, EOMI, accommodation nl, no face palsy, no dysarthria Psychiatric: A+Ox3, euthymic affect Genitourinary: No CVA tenderness Principal Diagnosis Intractable nausea and vomiting: Gastroparesis: Presence of gastric pacemaker: Hypertensive urgency. ESRD (end stage renal disease) on dialysis: Elevated Troponin Lung cancer: Chronic pain Anemia: Diabetes: Seizure disorder: Discharge Exam Sitting at the edge of the bed without any acute distress Constitutional well developed, well nourished and + ill appearing Eyes PERRL, conjunctivae normal, anicteric sclerae ENMT external ear and nose normal, oropharynx normal Neck trachea midline, no thyromegaly Respiratory no respiratory distress Auscultation: + diminished lung sounds; no crackles and no wheezes Cardiovascular Rate/Rhythm: regular rate and regular rhythm; not tachycardic Extremities: + edema (1+ edema bilaterally) Gastrointestinal (Abdomen) Inspection/Auscultation: normal bowel sounds; abdomen not distended Percussion/Palpation: abdomen soft; abdomen nontender Psychiatric A+Ox3, euthymic affect Discharge Data Allergies Allergy/AdvReac Type Severity Reaction Status Date / Time bee venom protein (honey bee) Allergy Severe Swelling Verified 10/25/21 17:13 at site, SOB cat dander Allergy Unknown Unknown Verified 10/25/21 17:13 Penicillins Allergy Unknown Amoxicillin- Verified 10/25/21 17:13 "since " Consultations 10/20/21 11:26 ED Decision to Admit Stat 10/20/21 12:16 Consult Nephrology Routine 10/22/21 10:11 Consult Pain Management Routine Diabetes Follow up Diabetes Follow-up Needed for HgbA1c >9% Hospital Course (1) Intractable nausea and vomiting: (2) Gastroparesis: (3) Presence of gastric pacemaker: Intractable nausea and vomiting. Likely related to gastroparesis. Pt said that he vomited on 10/23/2021 and sometimes multiple times in a day Antiemetics as needed Continue metoclopramide as an outpatient Emend x1 given on 10/25/2021 Still feels nauseous this morning and minimally shaky says that he is not yet ready to be discharged this morning He will have dialysis today and following dialysis he will be discharged this afternoon Mentioned that he is physically and mentally ready to be discharged to continue with his outpatient dialysis (4) Hypertension: Hypertensive urgency. Likely due to vomiting pills per patient Currently controlled in ER Continue clonidine patch and lisinopril at home. Blood pressure remains mildly elevated at 170/83 this morning We will continue current medications to control blood pressure (5) ESRD (end stage renal disease) on dialysis: Fluid overload On HD started 3 months ago. CXR showed mild pulmonary vascular congestion. Nephrology consult-appreciate input and recommendation He will have dialysis today and likely discharge following dialysis Troponin mildly elevated on presentation. Likely due to end-stage renal disease. Troponin on admission 27, then trending down to 24 Denies any chest pain currently Continue monitor (6) Lung cancer: With mets to ribs. Chronic pain Received chemoradiation in the past Follows with oncologist Pain management on board Fentanyl patch increased to 75 mcg and continue breakthrough pain with oxycodone 10 mg every 4 hours Script sent for the fentanyl Pt was advised to hold next dose of narcotic if he becomes drowsy or lethargy Advised not to drive or operate any machine while on narcotic He denies any significant pain as of this morning (7) Anemia: Anemia of chronic disease Hb 10 at baseline (8) Diabetes: Hyperglycemic. Most recent Hba1c 9.1 on 10/21/21 Continue sliding scale and Lantus continue monitor BS (9) Seizure disorder: Continue home Keppra and Lamotrigine Continue seizure precaution No more episodes of seizures (10) DVT prophylaxis: Heparin subcu for DVT prophylax Disposition Discharge home this afternoon Total Time Total Time Spent Total Time Spent (In Minutes): 35 minutes Discharge Plan Discharge Items Patient Disposition: Home - Self-Care Reason For Visit: NAUSEA, VOMITING Discharge Diagnosis: Intractable nausea and vomiting: Gastroparesis: Presence of gastric pacemaker: Hypertensive urgency. ESRD (end stage renal disease) on dialysis: Elevated Troponin Lung cancer: Chronic pain Anemia: Diabetes: Seizure disorder: Condition on Discharge: Fair Activity: Resume your previous activity Non-emergency contact: Primary Care Provider and Manager In Training Call non-emergency contact if: you have any medication questions and your symptoms worsen Follow-up/Referrals: Juan Lamb MD [Primary Care Provider] - (Date & Time 11/02/2021 11:10 AM Provider Juan Davis MD [facility] Please note that your appointment that was previously scheduled for 10/26/2021 has been CANCELLED.) Diet: Dialysis Renal Fluids: 1500ml (6 cups) Addtl Attending Provider Instructions: 11/02/2021 11:10 AM Provider Juan Davis MD [facility] Please note that your appointment that was previously scheduled for 10/26/2021 has been CANCELLED. Your next dialysis is scheduled for tomorrow 10/26/2021 Follow up with your specialist to adjust the setting in your gastric pacemaker Continue monitor your blood sugar and bring your blood sugar log at your next appointment to your provider Follow with your oncology Please do not drive or operate any machine while on narcotic Please hold next dose of the narcotic if you become drowsy or lethargy Fall precaution Please keep follow-up appointments with your healthcare providers Pending Studies at Discharge: No Stand-Alone Forms: My [facility], Smoking Cessation Medications and DC Order Prescriptions: New fentanyl 75 mcg/hr Patch 72 Hour 75 mcg transdermal Q72H Qty: 3 RF: 0 Continued insulin lispro [Humalog U-100 Insulin] 100 unit/mL solution 1 sliding scale dose subcut USEASDIRECTD RF: 0 gabapentin 400 mg capsule 400 mg PO TID RF: 0 (DME) FreeStyle [place] 14 Day Sensor Kit See Rx Instructions .Route RF: 0 Lantus Solostar U-100 Insulin 100 unit/mL (3 mL) insulin pen 7 unit subcut QPM RF: 0 (DME) blood sugar diagnostic Strip See Rx Instructions .Route RF: 0 clonidine 0.2 mg/24 hr patch weekly 0.2 mg transdermal FR RF: 0 levetiracetam [Keppra] 750 mg tablet 750 mg PO BID Qty: 30 RF: 0 glucagon 1 mg recon soln 1 mg IM ONCE PRN (Reason: Hypoglycemia) Qty: 1 RF: 0 albuterol sulfate [Ventolin HFA] 90 mcg/actuation Hfa Aerosol Inhaler 2 puff INHALATION Q4H PRN (Reason: Shortness Of Breath) Qty: 1 RF: 0 oxycodone 10 mg tablet 10 mg PO Q4H PRN (Reason: Severe Pain (Scale Score 7-10)) 7 Days Qty: 14 RF: 0 omeprazole 40 mg capsule,delayed release(DR/EC) 40 mg PO QAM RF: 0 lamotrigine [Lamictal] 25 mg Tablet 37.5 mg PO QPM RF: 0 lisinopril 40 mg Tablet 20 mg PO QAM RF: 0 fluticasone propion-salmeterol 250-50 mcg/dose Blister With Device 1 inh INHALATION DAILY RF: 0 metoclopramide HCl 10 mg tablet 10 mg PO TID RF: 0 rosuvastatin 20 mg tablet 20 mg PO DAILY RF: 0 Probiotic 1 tab PO DAILY RF: 0 Discontinued fentanyl 50 mcg/hr Patch 72 Hour 1 patch TRANSDERMAL Q72H RF: 0 No Action ondansetron HCl [Zofran] 4 mg Tablet 4 mg PO Q8H PRN (Reason: NAUSEA/VOMITING) RF: 0 Discharge Orders: Discharge Order (Routine); Ordered 10/25/21 Ordered By: Stephon Abarca/Other Patient Handouts: A1C Admission Data Admit Date/Time: 10/20/21 12:16 Attending Provider: Stephon Vernon Admit Provider: Julia La I. Primary Care Provider: Juan Lamb Other Providers: Norma Lord ; Julia La I. ; Henry Hope ; Shira Pavon Other Interventions: Discharge Summary Assessment (RN) Last Done: 10/25/21 11:49
== END 2021-10-25 13:19 | disposition home or self-care (01) | DRG 73 ==
LOC: ED 09:00 → EDINP 12:16 → SUATTDRO 12:16 → 2N 16:52

== ENCOUNTER 2021-10-25 16:33 | Inpatient (IN) ==
[2021-10-25] MEDS ORDERED: LORazepam 2 MG/1 ML VIAL ONE (16:39)
[2021-10-25] MEDS ORDERED: levETIRAcetam 500 MG in 0.9 % SODIUM CHLORIDE 100 ML IV STA (16:44)
[2021-10-25] MEDS ORDERED: SODIUM CHLORIDE 0.9% 500 ML IV SCH (17:00)
[2021-10-25] MEDS ORDERED: LABETALOL HCL IV 5 MG/ML 20ML IV STA (17:08)
--- NOTE | 2021-10-25 17:14 | XRay Report ---
XR chest 1V portable CLINICAL HISTORY: weakness. Evaluate cardiopulmonary status COMPARISON STUDY: 10/20/2021 TECHNIQUE: 1 view of the chest obtained supine FINDINGS: Single frontal view of the chest demonstrates the cardiomediastinal silhouette to be within normal li mits. There is a decreased inspiratory effort with elevation of the hemidiaphragms and crowding of th e bronchovascular markings at the lung bases and centrally. The lungs are clear of alveolar opacities . There is no evidence for pleural effusion. There is no evidence for vascular congestion. There is n o acute osseous pathology. Large-bore central venous catheter is again seen on the right. IMPRESSION: 1. There is a decreased inspiratory effort with otherwise no acute chest disease. ACT 112: Negative or not required by law. Electronically signed by: Pranav Yip M.D. 10/25/2021 5:12 PM
[2021-10-25 17:19] LABS: Eosinophils # (auto) 0.14 K/uL (0-0.5); Eosinophils % (auto) 2.6 %; Hematocrit (blood only) 27.7 % (42-52); Hemoglobin 9.1 g/dL (14.0-18.0); Immature Granulocytes # (auto) 0.01 K/uL (0.00-0.02); Immature Granulocytes % (auto) 0.2 %; Lymphocytes # (auto) 0.89 K/uL (1.2-3.4); Lymphocytes % (auto) 16.6 %; Mean Corpuscular Hemoglobin 29.1 pg (25-34); Mean Corpuscular Hgb Conc 32.9 g/dL (32-36); Mean Corpuscular Volume 88.5 fL (80-100); Mean Platelet Volume 11.6 fL (7.4-10.4); Monocytes # (auto) 0.01 K/uL (0.11-0.59); Monocytes % (auto) 0.2 %; Neutrophils % (auto) 80.4 %; Platelet Count 172 K/uL (130-400); RDW Coefficient of Variation 14.1 % (11.5-14.5); RDW Standard Deviation 45.7 fL (36.4-46.3); Red Blood Count 3.13 M/uL (4.7-6.1); White Blood Count 5.35 K/uL (4.8-10.8)
[2021-10-25 17:31] LABS: Troponin I High Sensitivity 11.1 pg/ml (0-20)
--- NOTE | 2021-10-25 17:38 | CT Scan Report ---
CT head/brain wo con CLINICAL HISTORY: Altered mental status. Unresponsive. COMPARISON STUDY: 06/30/2021 CT DOSE: 1035.81 mGycm TECHNIQUE: Standard CT of the Brain was performed without IV contrast. A dose lowering technique was utilized adhering to the principles of ALARA. FINDINGS: Extraaxial space: There is no evidence for subdural hematoma. There are no extra-axial fluid collecti ons. Ventricles and cisterns: The ventricles are normal in size and configuration. There is no evidence fo r midline shift or mass effect. Parenchyma: There is no subarachnoid or intraparenchymal hemorrhage. There is no evidence for an acut e infarct or cerebral edema. There is homogeneous attenuation of the brain parenchyma. There are no g ross mass lesions. Osseous structures: There is no evidence for an acute fracture. The visualized paranasal sinuses are clear. The mastoid air cells are clear bilaterally. Soft tissues: There is no evidence for focal soft tissue swelling. IMPRESSION: 1. No acute intracerebral pathology. ACT 112: Negative or not required by law. Electronically signed by: Pranav Yip M.D. 10/25/2021 5:36 PM
--- NOTE | 2021-10-25 17:43 | Emergency Department Note ---
Impression & Plan Altered mental status, Renal failure, Seizure, Confusion ED Provider Note NAME: NIKHIL MARTINS AGE: 56 SEX: M : 1965 ARRIVES VIA: Ambulance INFORMANT: [ems] ED PROVIDER(S): [Russell Posada MD] CHIEF COMPLAINT: Altered mental state HISTORY OF PRESENT ILLNESS: The patient is a 56-year-old male who was brought by EMS for an altered mental state. He was found confused outside his home. He was just discharged from [facility] today. He has been in the hospital for a hypertensive urgency. The patient was confused at times but sometimes more lucid. He was able to tell the EMS crew to use his neck for an IV. As per EMS, the patient has cancer and is a DNR. On the way to the hospital he had episodes of tensing up and agitation. When he arrived in the ED he had a very brief tonic-clonic seizure. I was called emergently to the room. As per EMS, there has been no trauma. The patient does have a seizure history and is on Keppra. Given the mental state, no further history obtainable REVIEW OF SYSTEMS: Unobtainable given the mental state. PMHx/PSHx: See Below SOCIAL HISTORY: See Below. PHYSICAL EXAM: GENERAL: Patient is in moderate distress, agitated, confused. HEENT: No acute trauma, normocephalic atraumatic, mucous membranes moist, no nasal congestion, no scleral icterus. Pupils equal and reactive to light. NECK: No stridor, no adenopathy, no meningismus, trachea is midline. LUNGS: Clear to auscultation bilaterally when listening anterior, no wheeze, no rhonchi, breath sounds equal. No respiratory distress. HEART: Tachycardic, regular rhythm, no obvious murmur. Chest: There is a dialysis port on the right chest. There is a Mediport on the left chest ABDOMEN: Soft, nontender, no abdominal distention noted EXTREMITIES: No cyanosis or edema. No obvious extremity trauma by exam. NEUROLOGIC: Confused, nonverbal, does move all extremities. Agitated. SKIN: No rash, no jaundice, no diaphoresis. DIFFERENTIAL DIAGNOSIS: Seizure, intracranial bleeding, electrolyte imbalance, hypertensive emergency, infection, dysrhythmia, renal failure, fluid overload, among others. EMERGENCY DEPARTMENT COURSE/PROCEDURES: ECG: Indication was seizure activity and confusion. ECG shows a sinus tachycardia with a rate of 107. There is an old septal infarct. There is some nonspecific ST changes seen. No ST elevation, no PVCs. The QTc is 477. Continuous Cardiac Monitoring: An order was placed for continuous cardiac m onitoring. The monitor shows a rate of 101 with sinus tachycardia. Critical Care Note: I have personally spent 46 minutes of critical care time in the direct management of this patient. This includes bedside care, interpretation of diagnostic studies, and testing, discussion with consultants, patient, and family members, and other required patient management activities. This 46 minutes is in excess of all separately billable procedures. MEDICAL DECISION MAKING: There is no leukocytosis. The patient is anemic but he has a history of the same. There is a normal platelet count. There is a high creatinine consistent with his dialysis need. The potassium is normal. Alk phos slightly elevated, the bilirubin and other LFTs are unremarkable. Ammonia level is not elevated. Total CK is mildly elevated at 251, likely consistent with his seizure activity. The patient appeared to be in a euthyroid state. ECG shows a sinus tachyc ardia, no ischemia. Cardiac enzyme testing x1 is not consistent with acute cardiac injury. Chest x-ray shows congestion and poor inspiratory effort, no obvious pneumonia. Brain CT shows no acute bleed or mass-effect. Prolactin level is elevated consistent with seizure activity. The patient presented altered and did have a brief tonic-clonic seizure event while in the ED. I was called emergently to see him in room A1. Patient was given Ativan 2 mg IV. He was given IV Keppra 500 mg. He received a 500 cc saline bolus, he apparently had received a 500 cc saline bolus prior to arrival. The patient seizure activity ceased with the Ativan and Keppra. No further seizure activity noted. He has been resting. He wakes to a sternal rub but is still quite groggy, likely from his Ativan. The patient's blood pressure is now adequately controlled. He did not require the labetalol that was initially ordered. I did speak with the patient's father, the patient is not to be intubated or on any machine as he has metastatic cancer. He was given about a year to live several months ago. I did speak with case management, the on-call hospitalist was consulted. In short, I suspect the patient's altered mental state was secondary to his seizure activity. Past Med/Surg History Medical History Anemia Cancer Axillary region- current Chronic pain COPD (chronic obstructive pulmonary disease) Diabetes mellitus type 2, uncontrolled Diabetic autonomic neuropathy Diabetic peripheral neuropathy Enlarged prostate ESRD (end stage renal disease) on dialysis Dialysis M/W/F via left chest port ([facility]) Gastroparesis s/p gastric stimulator History of Crohn's disease HTN (hypertension) Hypertension Lung cancer Dx 2016 [place] SHAWN; + hilar nodes; s/p left upper lobectomy + chemo Neurogenic bladder On home oxygen therapy 2L/min NC PRN (no use x 1+ months) Orthostatic hypotension Presence of gastric pacemaker Seizure disorder Hx grand mal seizures, no seizures x1+ years Surgical History H/O colonoscopy H/O esophagogastroduodenoscopy History of cholecystectomy History of knee surgery LEFT X 17/RIGHT X 2 History of tonsillectomy and adenoidectomy Hx of total knee arthroplasty S/P lobectomy of lung SHAWN Status post insertion of intrathecal pump explanted Family History Mother Diabetes Dementia Father Hypertension Diabetes Sister Crohn's disease Other Family history non-contributory Social History Smoking Status: Unknown if ever smoked Tobacco Type: Cigarettes Second Hand Exposure: No; Hx Alcohol Use: No Hx Substance Use: No Preferred Language: [place] Communication Ability: Effective Visual Impairment: No Limitations Manager [employer] Required: No Beliefs That Will Affect Care: None marital status: Single Current Living Situation: Alone Current Living Situation Comment: has family close by and available to assist current occupational status: disabled How many Children do You have: 5 Feels Safe at Home: Yes Diet Comment: Carb counting caffeine: No Physical Activity Frequency: Does not Exercise Physical Activity Frequency Comment: walks when able Assistive Devices: Glasses and Oxygen - at Night Allergies Allergies Allergy/AdvReac Type Severity Reaction Status Date / Time bee venom protein (honey bee) Allergy Severe Swelling Verified 10/25/21 17:13 at site, SOB cat dander Allergy Unknown Unknown Verified 10/25/21 17:13 Penicillins Allergy Unknown Amoxicillin- Verified 10/25/21 17:13 "since " Home Meds Home Medications Medication Instructions Recorded Confirmed blood sugar diagnostic 04/26/21 09/12/21 flash glucose sensor (FreeStyle 04/26/21 09/12/21 Amparo 14 Day Sensor) gabapentin 400 mg capsule 400 mg PO TID 04/26/21 10/25/21 insulin glargine 100 unit/mL (3 7 unit SUBCUT QPM ml 04/26/21 10/25/21 mL) subcutaneous pen (Lantus Solostar U-100 Insulin) insulin lispro 100 unit/mL 1 sliding scale dose SUBCUT 04/26/21 10/25/21 subcutaneous solution (Humalog USEASDIRECTD U-100 Insulin) clonidine 0.2 mg/24 hr weekly 0.2 mg TRANSDERMAL FR 06/30/21 10/25/21 transdermal patch lamotrigine 25 mg tablet (Lamictal) 37.5 mg PO QPM 09/29/21 10/25/21 lisinopril 40 mg tablet 20 mg PO QAM 09/29/21 10/25/21 omeprazole 40 mg capsule,delayed 40 mg PO QAM 09/29/21 10/25/21 release Probiotic 1 tab PO DAILY 10/20/21 10/25/21 fluticasone 250 mcg-salmeterol 50 1 inh INHALATION DAILY 10/20/21 10/25/21 mcg/dose blistr powdr for inhalation metoclopramide HCl 10 mg tablet 10 mg PO TID 10/20/21 10/25/21 rosuvastatin 20 mg tablet 20 mg PO DAILY 10/20/21 10/25/21 ondansetron HCl 4 mg tablet 4 mg PO Q8H PRN 10/25/21 10/25/21 Previous Rx's Medication Instructions Recorded albuterol sulfate 90 mcg/actuation 2 puff INHALATION Q4H PRN #1 07/22/21 aerosol inhaler (Ventolin HFA) inhaler glucagon 1 mg solution for 1 mg IM ONCE PRN #1 ea 07/22/21 injection levetiracetam 750 mg tablet 750 mg PO BID #30 tab 07/22/21 (Keppra) oxycodone 10 mg tablet 10 mg PO Q4H PRN 7 Days #14 tab 07/22/21 fentanyl 75 mcg/hr transdermal 75 mcg TRANSDERMAL Q72H #3 ea 10/24/21 patch Results & Data (ED) Vital Signs Vital Signs - 24 hr 10/25/21 16:41 10/25/21 16:42 10/25/21 16:43 Pulse Rate 110 H 107 H Pulse Rate [Apical] Pulse Rate from SpO2 Sensor 112 H Pulse Rhythm Regular Pulse Rhythm [Apical] Pulse Strength [Apical] Respiratory Rate 33 H 32 H Respiratory Effort / Characteristics Non-Labored Respiratory Depth Normal Respiratory Pattern Regular Blood Pressure 235/121 H 228/121 H Blood Pressure [Right Arm] Blood Pressure Mean 159 156 Blood Pressure Mean [Right Arm] Blood Pressure Position Lying Blood Pressure Position [Right Arm] Pulse Oximetry 100 100 Oxygen Delivery Method Room Air Non-rebreather Non-rebreather Oxygen Flow Rate 15 15 Sepsis Recent Fever Within 48 Hours No Sepsis New/Unexplained Change in Mental Status Yes Sepsis Action Taken by Nursing Physician Notified 10/25/21 16:45 10/25/21 16:50 10/25/21 16:53 Pulse Rate 108 H 108 H 108 H Pulse Rate [Apical] Pulse Rate from SpO2 Sensor 109 H 106 H 107 H Pulse Rhythm Pulse Rhythm [Apical] Pulse Strength [Apical] Respiratory Rate 27 H 23 22 Respiratory Effort / Characteristics Respiratory Depth Respiratory Pattern Blood Pressure 228/121 H 221/116 H 229/117 H Blood Pressure [Right Arm] Blood Pressure Mean 156 151 154 Blood Pressure Mean [Right Arm] Blood Pressure Position Blood Pressure Position [Right Arm] Pulse Oximetry 100 98 100 Oxygen Delivery Method Non-rebreather Non-rebreather Non-rebreather Oxygen Flow Rate 15 15 15 Sepsis Recent Fever Within 48 Hours Sepsis New/Unexplained Change in Mental Status Sepsis Action Taken by Nursing 10/25/21 16:54 10/25/21 16:56 10/25/21 17:00 Pulse Rate 107 H 104 H 103 H Pulse Rate [Apical] Pulse Rate from SpO2 Sensor 108 H 106 H 105 H Pulse Rhythm Pulse Rhythm [Apical] Pulse Strength [Apical] Respiratory Rate 25 H 19 21 Respiratory Effort / Characteristics Respiratory Depth Respiratory Pattern Blood Pressure 231/120 H 202/100 H 208/114 H Blood Pressure [Right Arm] Blood Pressure Mean 157 134 145 Blood Pressure Mean [Right Arm] Blood Pressure Position Blood Pressure Position [Right Arm] Pulse Oximetry 100 100 97 Oxygen Delivery Method Non-rebreather Non-rebreather Non-rebreather Oxygen Flow Rate 15 Sepsis Recent Fever Within 48 Hours Sepsis New/Unexplained Change in Mental Status Sepsis Action Taken by Nursing 10/25/21 17:05 10/25/21 17:10 10/25/21 17:26 Pulse Rate 99 H 97 H Pulse Rate [Apical] Pulse Rate from SpO2 Sensor 100 H 100 H 98 H Pulse Rhythm Pulse Rhythm [Apical] Pulse Strength [Apical] Respiratory Rate 4 L 15 Respiratory Effort / Characteristics Respiratory Depth Respiratory Pattern Blood Pressure 198/109 H 193/99 H 148/79 H Blood Pressure [Right Arm] Blood Pressure Mean 138 130 102 Blood Pressure Mean [Right Arm] Blood Pressure Position Blood Pressure Position [Right Arm] Pulse Oximetry 100 100 97 Oxygen Delivery Method Non-rebreather Non-rebreather Non-rebreather Oxygen Flow Rate 15 15 6 Sepsis Recent Fever Within 48 Hours Sepsis New/Unexplained Change in Mental Status Sepsis Action Taken by Nursing 10/25/21 17:30 10/25/21 17:35 10/25/21 17:40 Pulse Rate 100 H 95 H 92 H Pulse Rate [Apical] Pulse Rate from SpO2 Sensor 101 H 95 H 93 H Pulse Rhythm Pulse Rhythm [Apical] Pulse Strength [Apical] Respiratory Rate 17 20 19 Respiratory Effort / Characteristics Respiratory Depth Respiratory Pattern Blood Pressure 148/75 H 150/77 H Blood Pressure [Right Arm] Blood Pressure Mean 99 101 Blood Pressure Mean [Right Arm] Blood Pressure Position Blood Pressure Position [Right Arm] Pulse Oximetry 100 100 100 Oxygen Delivery Method Non-rebreather Non-rebreather Oxygen Flow Rate 6 6 Sepsis Recent Fever Within 48 Hours Sepsis New/Unexplained Change in Mental Status Sepsis Action Taken by Nursing 10/25/21 17:45 10/25/21 17:50 10/25/21 17:55 Pulse Rate 92 H 91 H 90 Pulse Rate [Apical] Pulse Rate from SpO2 Sensor 92 H 91 H 90 Pulse Rhythm Pulse Rhythm [Apical] Pulse Strength [Apical] Respiratory Rate 18 19 16 Respiratory Effort / Characteristics Respiratory Depth Respiratory Pattern Blood Pressure 127/75 128/70 130/74 Blood Pressure [Right Arm] Blood Pressure Mean 92 89 92 Blood Pressure Mean [Right Arm] Blood Pressure Position Blood Pressure Position [Right Arm] Pulse Oximetry 96 99 100 Oxygen Delivery Method Oxygen Flow Rate Sepsis Recent Fever Within 48 Hours Sepsis New/Unexplained Change in Mental Status Sepsis Action Taken by Nursing 10/25/21 18:00 10/25/21 18:06 10/25/21 18:07 Pulse Rate 89 89 Pulse Rate [Apical] Pulse Rate from SpO2 Sensor 89 90 89 Pulse Rhythm Pulse Rhythm [Apical] Pulse Strength [Apical] Respiratory Rate 16 16 Respiratory Effort / Characteristics Respiratory Depth Respiratory Pattern Blood Pressure 117/71 126/75 122/72 Blood Pressure [Right Arm] Blood Pressure Mean 86 92 88 Blood Pressure Mean [Right Arm] Blood Pressure Position Blood Pressure Position [Right Arm] Pulse Oximetry 99 99 100 Oxygen Delivery Method Oxygen Flow Rate Sepsis Recent Fever Within 48 Hours Sepsis New/Unexplained Change in Mental Status Sepsis Action Taken by Nursing 10/25/21 18:10 10/25/21 18:15 10/25/21 18:20 Pulse Rate 88 87 87 Pulse Rate [Apical] Pulse Rate from SpO2 Sensor 88 87 87 Pulse Rhythm Pulse Rhythm [Apical] Pulse Strength [Apical] Respiratory Rate 19 16 16 Respiratory Effort / Characteristics Respiratory Depth Respiratory Pattern Blood Pressure 121/71 Blood Pressure [Right Arm] Blood Pressure Mean 87 Blood Pressure Mean [Right Arm] Blood Pressure Position Blood Pressure Position [Right Arm] Pulse Oximetry 100 100 99 Oxygen Delivery Method Oxygen Flow Rate Sepsis Recent Fever Within 48 Hours Sepsis New/Unexplained Change in Mental Status Sepsis Action Taken by Nursing 10/25/21 18:25 10/25/21 18:30 10/25/21 19:00 Pulse Rate 87 87 Pulse Rate [Apical] 90 Pulse Rate from SpO2 Sensor 87 87 Pulse Rhythm Pulse Rhythm [Apical] Regular Pulse Strength [Apical] Normal Respiratory Rate 15 16 16 Respiratory Effort / Characteristics Non-Labored Spontaneous Respiratory Depth Normal Respiratory Pattern Regular Blood Pressure 121/69 Blood Pressure [Right Arm] 148/82 H Blood Pressure Mean 86 Blood Pressure Mean [Right Arm] 104 Blood Pressure Position Blood Pressure Position [Right Arm] Lying Pulse Oximetry 99 98 99 Oxygen Delivery Method Oxymask Oxygen Flow Rate 3 Sepsis Recent Fever Within 48 Hours Sepsis New/Unexplained Change in Mental Status Sepsis Action Taken by Nursing 10/25/21 21:00 Pulse Rate Pulse Rate [Apical] 87 Pulse Rate from SpO2 Sensor Pulse Rhythm Pulse Rhythm [Apical] Regular Pulse Strength [Apical] Normal Respiratory Rate 18 Respiratory Effort / Characteristics Non-Labored Spontaneous Respiratory Depth Normal Respiratory Pattern Regular Blood Pressure Blood Pressure [Right Arm] 126/74 Blood Pressure Mean Blood Pressure Mean [Right Arm] 91 Blood Pressure Position Blood Pressure Position [Right Arm] Lying Pulse Oximetry 100 Oxygen Delivery Method Oxymask Oxygen Flow Rate 3 Sepsis Recent Fever Within 48 Hours Sepsis New/Unexplained Change in Mental Status Sepsis Action Taken by [facility] Medications Current Medication List: was personally reviewed by me Laboratory Data Attestation: I reviewed the patient's lab results. Result diagrams: 10/25/21 16:57 10/25/21 16:57 Lab Results 10/25/21 10/25/21 10/25/21 Range/Units 16:57 16:57 16:57 WBC 5.35 (4.8-10.8) K/uL RBC 3.13 L (4.7-6.1) M/uL Hgb 9.1 L (14.0-18.0) g/dL Hct 27.7 L (42-52) % MCV 88.5 (80-100) fL MCH 29.1 (25-34) pg MCHC 32.9 (32-36) g/dL RDW Std Deviation 45.7 (36.4-46.3) fL RDW Coeff of Rik 14.1 (11.5-14.5) % Plt Count 172 (130-400) K/uL MPV 11.6 H (7.4-10.4) fL Immature Gran % (Auto) 0.2 % Neut % (Auto) 80.4 % Lymph % (Auto) 16.6 % [place] % (Auto) 0.2 % Eos % (Auto) 2.6 % Baso % (Auto) 0.0 % Neut # (Auto) 4.30 (1.4-6.5) K/uL Lymph # (Auto) 0.89 L (1.2-3.4) K/uL [place] # (Auto) 0.01 L (0.11-0.59) K/uL Eos # (Auto) 0.14 (0-0.5) K/uL Baso # (Auto) 0.00 (0-0.2) K/uL Immature Gran # (Auto) 0.01 (0.00-0.02) K/uL VBG pH (7.36-7.41) VBG pCO2 (38-50) mmHg VBG pO2 mmHg VBG HCO3 mmol/L VBG O2 Saturation % VBG Base Excess mEq/L Sodium 137 (136-145) mmol/L Potassium 3.8 (3.5-5.1) mmol/L Chloride 103 (98-107) mmol/L Carbon Dioxide 22 (21-32) mmol/L Anion Gap 12 H (3-11) BUN 30 H (6-23) mg/dl Creatinine 7.04 H* D (0.6-1.4) mg/dl Est Cr Clr Drug Dosing Not Reportable Est GFR ( Amer) 9.2 ml/min Est GFR (Non-Af Amer) 7.9 ml/min BUN/Creatinine Ratio 4.4 L (10-20) Glucose 160 H (70-99(Fasting)) mg/dl POC Glucose (70-99) mg/dl Calcium 7.8 L (8.5-10.1) mg/dl Magnesium 1.9 (1.7-2.4) mg/dl Total Bilirubin 0.3 (0.2-1.0) mg/dl AST 13 (13-39) U/L ALT 9 (7-52) U/L Alkaline Phosphatase 106 H (34-104) U/L Ammonia (18-72) umol/L Total Creatine Kinase 251 H (30-223) U/L Troponin I High Sens 11.1 D (0-20) pg/ml Total Protein 6.4 (6.0-8.3) gm/dl Albumin 3.2 L (3.4-5.0) gm/dl Globulin 3.2 (2.5-4.0) gm/dl Albumin/Globulin Ratio 1.0 (0.9-2) TSH (0.300-4.500) uIu/ml Prolactin 27.80 ng/ml Urine Color Urine Appearance (Clear) Urine pH (4.5-7.5) Ur Specific [place] (1.000-1.030) Urine Protein (Negative) Urine Glucose (UA) (Negative) Urine Ketones (Negative) Urine Blood (Negative) Urine Nitrite (Negative) Urine Bilirubin (Negative) Urine Urobilinogen (Negative) Ur Leukocyte Esterase (Negative) Urine WBC (Auto) (0-5) /hpf Urine RBC (Auto) (0-4) /hpf U Hyaline Cast (Auto) (0-5) /lpf U Epithel Cells (Auto) (0-5) /lpf Urine Bacteria (Auto) (Negative) Urine Opiates Screen (Neg) Ur Methadone, Qual (Neg) Urine Barbiturates (Neg) Ur Phencyclidine (PCP) (Neg) U Amphetamin/Meth Scrn (Neg) MDMA (Ecstasy) Screen (Neg) U Benzodiazepines Scrn (Neg) Ur Cocaine Metabolite (Neg) U Marijuana (THC) Screen (Neg) Ethyl Alcohol mg/dL (<10.0) mg/dl SARS-CoV-2, RNA, NAAT (NEGATIVE) 10/25/21 10/25/21 10/25/21 Range/Units 16:57 18:13 19:56 WBC (4.8-10.8) K/uL RBC (4.7-6.1) M/uL Hgb (14.0-18.0) g/dL Hct (42-52) % MCV (80-100) fL MCH (25-34) pg MCHC (32-36) g/dL RDW Std Deviation (36.4-46.3) fL RDW Coeff of Rik (11.5-14.5) % Plt Count (130-400) K/uL MPV (7.4-10.4) fL Immature Gran % (Auto) % Neut % (Auto) % Lymph % (Auto) % [place] % (Auto) % Eos % (Auto) % Baso % (Auto) % Neut # (Auto) (1.4-6.5) K/uL Lymph # (Auto) (1.2-3.4) K/uL [place] # (Auto) (0.11-0.59) K/uL Eos # (Auto) (0-0.5) K/uL Baso # (Auto) (0-0.2) K/uL Immature Gran # (Auto) (0.00-0.02) K/uL VBG pH (7.36-7.41) VBG pCO2 (38-50) mmHg VBG pO2 mmHg VBG HCO3 mmol/L VBG O2 Saturation % VBG Base Excess mEq/L Sodium (136-145) mmol/L Potassium (3.5-5.1) mmol/L Chloride (98-107) mmol/L Carbon Dioxide (21-32) mmol/L Anion Gap (3-11) BUN (6-23) mg/dl Creatinine (0.6-1.4) mg/dl Est Cr Clr Drug Dosing Est GFR ( Amer) ml/min Est GFR (Non-Af Amer) ml/min BUN/Creatinine Ratio (10-20) Glucose (70-99(Fasting)) mg/dl POC Glucose 185 H (70-99) mg/dl Calcium (8.5-10.1) mg/dl Magnesium (1.7-2.4) mg/dl Total Bilirubin (0.2-1.0) mg/dl AST (13-39) U/L ALT (7-52) U/L Alkaline Phosphatase (34-104) U/L Ammonia (18-72) umol/L Total Creatine Kinase (30-223) U/L Troponin I High Sens (0-20) pg/ml Total Protein (6.0-8.3) gm/dl Albumin (3.4-5.0) gm/dl Globulin (2.5-4.0) gm/dl Albumin/Globulin Ratio (0.9-2) TSH 1.118 (0.300-4.500) uIu/ml Prolactin ng/ml Urine Color Urine Appearance (Clear) Urine pH (4.5-7.5) Ur Specific [place] (1.000-1.030) Urine Protein (Negative) Urine Glucose (UA) (Negative) Urine Ketones (Negative) Urine Blood (Negative) Urine Nitrite (Negative) Urine Bilirubin (Negative) Urine Urobilinogen (Negative) Ur Leukocyte Esterase (Negative) Urine WBC (Auto) (0-5) /hpf Urine RBC (Auto) (0-4) /hpf U Hyaline Cast (Auto) (0-5) /lpf U Epithel Cells (Auto) (0-5) /lpf Urine Bacteria (Auto) (Negative) Urine Opiates Screen (Neg) Ur Methadone, Qual (Neg) Urine Barbiturates (Neg) Ur Phencyclidine (PCP) (Neg) U Amphetamin/Meth Scrn (Neg) MDMA (Ecstasy) Screen (Neg) U Benzodiazepines Scrn (Neg) Ur Cocaine Metabolite (Neg) U Marijuana (THC) Screen (Neg) Ethyl Alcohol mg/dL (<10.0) mg/dl SARS-CoV-2, RNA, NAAT NEGATIVE (NEGATIVE) 10/25/21 10/25/21 10/25/21 Range/Units 20:19 20:19 20:32 WBC (4.8-10.8) K/uL RBC (4.7-6.1) M/uL Hgb (14.0-18.0) g/dL Hct (42-52) % MCV (80-100) fL MCH (25-34) pg MCHC (32-36) g/dL RDW Std Deviation (36.4-46.3) fL RDW Coeff of Rik (11.5-14.5) % Plt Count (130-400) K/uL MPV (7.4-10.4) fL Immature Gran % (Auto) % Neut % (Auto) % Lymph % (Auto) % [place] % (Auto) % Eos % (Auto) % Baso % (Auto) % Neut # (Auto) (1.4-6.5) K/uL Lymph # (Auto) (1.2-3.4) K/uL [place] # (Auto) (0.11-0.59) K/uL Eos # (Auto) (0-0.5) K/uL Baso # (Auto) (0-0.2) K/uL Immature Gran # (Auto) (0.00-0.02) K/uL VBG pH (7.36-7.41) VBG pCO2 (38-50) mmHg VBG pO2 mmHg VBG HCO3 mmol/L VBG O2 Saturation % VBG Base Excess mEq/L Sodium (136-145) mmol/L Potassium (3.5-5.1) mmol/L Chloride (98-107) mmol/L Carbon Dioxide (21-32) mmol/L Anion Gap (3-11) BUN (6-23) mg/dl Creatinine (0.6-1.4) mg/dl Est Cr Clr Drug Dosing Est GFR ( Amer) ml/min Est GFR (Non-Af Amer) ml/min BUN/Creatinine Ratio (10-20) Glucose (70-99(Fasting)) mg/dl POC Glucose (70-99) mg/dl Calcium (8.5-10.1) mg/dl Magnesium (1.7-2.4) mg/dl Total Bilirubin (0.2-1.0) mg/dl AST (13-39) U/L ALT (7-52) U/L Alkaline Phosphatase (34-104) U/L Ammonia 21.0 (18-72) umol/L Total Creatine Kinase (30-223) U/L Troponin I High Sens (0-20) pg/ml Total Protein (6.0-8.3) gm/dl Albumin (3.4-5.0) gm/dl Globulin (2.5-4.0) gm/dl Albumin/Globulin Ratio (0.9-2) TSH (0.300-4.500) uIu/ml Prolactin ng/ml Urine Color Yellow Urine Appearance Clear (Clear) Urine pH 7.0 (4.5-7.5) Ur Specific [place] 1.019 (1.000-1.030) Urine Protein 4+ H (Negative) Urine Glucose (UA) 2+ H (Negative) Urine Ketones Negative (Negative) Urine Blood Trace H (Negative) Urine Nitrite Negative (Negative) Urine Bilirubin Negative (Negative) Urine Urobilinogen Negative (Negative) Ur Leukocyte Esterase Negative (Negative) Urine WBC (Auto) 1-5 (0-5) /hpf Urine RBC (Auto) 0-4 (0-4) /hpf U Hyaline Cast (Auto) 0 (0-5) /lpf U Epithel Cells (Auto) 20-30 H (0-5) /lpf Urine Bacteria (Auto) Negative (Negative) Urine Opiates Screen Pos H (Neg) Ur Methadone, Qual Neg (Neg) Urine Barbiturates Neg (Neg) Ur Phencyclidine (PCP) Neg (Neg) U Amphetamin/Meth Scrn Neg (Neg) MDMA (Ecstasy) Screen Neg (Neg) U Benzodiazepines Scrn Neg (Neg) Ur Cocaine Metabolite Neg (Neg) U Marijuana (THC) Screen Neg (Neg) Ethyl Alcohol mg/dL (<10.0) mg/dl SARS-CoV-2, RNA, NAAT (NEGATIVE) 10/25/21 10/25/21 Range/Units 20:32 20:32 WBC (4.8-10.8) K/uL RBC (4.7-6.1) M/uL Hgb (14.0-18.0) g/dL Hct (42-52) % MCV (80-100) fL MCH (25-34) pg MCHC (32-36) g/dL RDW Std Deviation (36.4-46.3) fL RDW Coeff of Rik (11.5-14.5) % Plt Count (130-400) K/uL MPV (7.4-10.4) fL Immature Gran % (Auto) % Neut % (Auto) % Lymph % (Auto) % [place] % (Auto) % Eos % (Auto) % Baso % (Auto) % Neut # (Auto) (1.4-6.5) K/uL Lymph # (Auto) (1.2-3.4) K/uL [place] # (Auto) (0.11-0.59) K/uL Eos # (Auto) (0-0.5) K/uL Baso # (Auto) (0-0.2) K/uL Immature Gran # (Auto) (0.00-0.02) K/uL VBG pH 7.28 L (7.36-7.41) VBG pCO2 56 H (38-50) mmHg VBG pO2 51 mmHg VBG HCO3 26 mmol/L VBG O2 Saturation 85.9 % VBG Base Excess -1.4 mEq/L Sodium (136-145) mmol/L Potassium (3.5-5.1) mmol/L Chloride (98-107) mmol/L Carbon Dioxide (21-32) mmol/L Anion Gap (3-11) BUN (6-23) mg/dl Creatinine (0.6-1.4) mg/dl Est Cr Clr Drug Dosing Est GFR ( Amer) ml/min Est GFR (Non-Af Amer) ml/min BUN/Creatinine Ratio (10-20) Glucose (70-99(Fasting)) mg/dl POC Glucose (70-99) mg/dl Calcium (8.5-10.1) mg/dl Magnesium (1.7-2.4) mg/dl Total Bilirubin (0.2-1.0) mg/dl AST (13-39) U/L ALT (7-52) U/L Alkaline Phosphatase (34-104) U/L Ammonia (18-72) umol/L Total Creatine Kinase (30-223) U/L Troponin I High Sens (0-20) pg/ml Total Protein (6.0-8.3) gm/dl Albumin (3.4-5.0) gm/dl Globulin (2.5-4.0) gm/dl Albumin/Globulin Ratio (0.9-2) TSH (0.300-4.500) uIu/ml Prolactin ng/ml Urine Color Urine Appearance (Clear) Urine pH (4.5-7.5) Ur Specific [place] (1.000-1.030) Urine Protein (Negative) Urine Glucose (UA) (Negative) Urine Ketones (Negative) Urine Blood (Negative) Urine Nitrite (Negative) Urine Bilirubin (Negative) Urine Urobilinogen (Negative) Ur Leukocyte Esterase (Negative) Urine WBC (Auto) (0-5) /hpf Urine RBC (Auto) (0-4) /hpf U Hyaline Cast (Auto) (0-5) /lpf U Epithel Cells (Auto) (0-5) /lpf Urine Bacteria (Auto) (Negative) Urine Opiates Screen (Neg) Ur Methadone, Qual (Neg) Urine Barbiturates (Neg) Ur Phencyclidine (PCP) (Neg) U Amphetamin/Meth Scrn (Neg) MDMA (Ecstasy) Screen (Neg) U Benzodiazepines Scrn (Neg) Ur Cocaine Metabolite (Neg) U Marijuana (THC) Screen (Neg) Ethyl Alcohol mg/dL < 10.0 (<10.0) mg/dl SARS-CoV-2, RNA, NAAT (NEGATIVE) Administered Medications Discontinued Medications Levetiracetam 500 mg/ Sodium (Chloride) 105 mls @ 440 mls/hr IV NOW STA Stop: 10/25/21 16:58 Last Infusion: 10/25/21 17:27 Dose: 0 mls/hr Documented by: [id number] Admin: 10/25/21 17:01 Dose: 440 mls/hr Documented by: [id number] Sodium Chloride (Nss) 500 mls @ 999 mls/hr IV .Q31M DAMIR Stop: 10/25/21 17:30 Last Infusion: 10/25/21 17:28 Dose: 0 mls/hr Documented by: [id number] Admin: 10/25/21 17:28 Dose: 999 mls/hr Documented by: [id number] Labetalol HCl (Labetalol Hcl Iv 5 Mg/Ml 20ml) 10 mg IV NOW STA Stop: 10/25/21 17:09 Last Admin: 10/25/21 17:27 Dose: Not Given Documented by: [id number] Lorazepam (Lorazepam 2 Mg/1 Ml Vial) Confirm Administered Dose 2 mg .ROUTE .STK- [employer] ONE Stop: 10/25/21 16:40 Last Admin: 10/25/21 17:01 Dose: 2 mg Documented by: [id number] Imaging Data Radiologist's Impression: Head CT 10/25/21 16:49 CT head/brain wo con CLINICAL HISTORY: Altered mental status. Unresponsive. COMPARISON STUDY: 06/30/2021 CT DOSE: 1035.81 mGycm TECHNIQUE: Standard CT of the Brain was performed without IV contrast. A dose lowering technique was utilized adhering to the principles of ALARA. FINDINGS: Extraaxial space: There is no evidence for subdural hematoma. There are no extra-axial fluid collections. Ventricles and cisterns: The ventricles are normal in size and configuration. There is no evidence for midline shift or mass effect. Parenchyma: There is no subarachnoid or intraparenchymal hemorrhage. There is no evidence for an acute infarct or cerebral edema. There is homogeneous attenuation of the brain parenchyma. There are no gross mass lesions. Osseous structures: There is no evidence for an acute fracture. The visualized paranasal sinuses are clear. The mastoid air cells are clear bilaterally. Soft tissues: There is no evidence for focal soft tissue swelling. IMPRESSION: 1. No acute intracerebral pathology. ACT 112: Negative or not required by law. Electronically signed by: Pranav Yip M.D. 10/25/2021 5:36 PM Chest X-Ray 10/25/21 16:50 XR chest 1V portable CLINICAL HISTORY: weakness. Evaluate cardiopulmonary status COMPARISON STUDY: 10/20/2021 TECHNIQUE: 1 view of the chest obtained supine FINDINGS: Single frontal view of the chest demonstrates the cardiomediastinal silhouette to be within normal limits. There is a decreased inspiratory effort with elevation of the hemidiaphragms and crowding of the bronchovascular markings at the lung bases and centrally. The lungs are clear of alveolar opacities. There is no evidence for pleural effusion. There is no evidence for vascular congestion. There is no acute osseous pathology. Large-bore central venous catheter is again seen on the right. IMPRESSION: 1. There is a decreased inspiratory effort with otherwise no acute chest disease. ACT 112: Negative or not required by law. Electronically signed by: Pranav Yip M.D. 10/25/2021 5:12 PM Discharge Plan Visit Data Chief Complaint: Altered Mental Status Stated Complaint: AMS ED Provider: Russell Posada Discharge Problem: Altered mental status, Renal failure, Seizure, Confusion Patient Disposition: Admitted As Inpatient Condition: Fair Forms Stand Alone Forms: My [facility] [employer] Prescriptions Prescriptions: No Action insulin lispro [Humalog U-100 Insulin] 100 unit/mL solution 1 sliding scale dose subcut USEASDIRECTD RF: 0 gabapentin 400 mg capsule 400 mg PO TID RF: 0 (DME) FreeStyle Amparo 14 Day Sensor Kit See Rx Instructions .Route RF: 0 Lantus Solostar U-100 Insulin 100 unit/mL (3 mL) insulin pen 7 unit subcut QPM RF: 0 (DME) blood sugar diagnostic Strip See Rx Instructions .Route RF: 0 clonidine 0.2 mg/24 hr patch weekly 0.2 mg transdermal FR RF: 0 levetiracetam [Keppra] 750 mg tablet 750 mg PO BID Qty: 30 RF: 0 glucagon 1 mg recon soln 1 mg IM ONCE PRN (Reason: Hypoglycemia) Qty: 1 RF: 0 albuterol sulfate [Ventolin HFA] 90 mcg/actuation Hfa Aerosol Inhaler 2 puff INHALATION Q4H PRN (Reason: Shortness Of Breath) Qty: 1 RF: 0 oxycodone 10 mg tablet 10 mg PO Q4H PRN (Reason: Severe Pain (Scale Score 7-10)) 7 Days Qty: 14 RF: 0 omeprazole 40 mg capsule,delayed release(DR/EC) 40 mg PO QAM RF: 0 lamotrigine [Lamictal] 25 mg Tablet 37.5 mg PO QPM RF: 0 lisinopril 40 mg Tablet 20 mg PO QAM RF: 0 fluticasone propion-salmeterol 250-50 mcg/dose Blister With Device 1 inh INHALATION DAILY RF: 0 metoclopramide HCl 10 mg tablet 10 mg PO TID RF: 0 rosuvastatin 20 mg tablet 20 mg PO DAILY RF: 0 Probiotic 1 tab PO DAILY RF: 0 fentanyl 75 mcg/hr Patch 72 Hour 75 mcg transdermal Q72H Qty: 3 RF: 0 ondansetron HCl [Zofran] 4 mg Tablet 4 mg PO Q8H PRN (Reason: NAUSEA/VOMITING) RF: 0 Referrals Referrals: Juan Lamb MD [Primary Care Provider] -
[2021-10-25 17:55] LABS: Est GFR (African American) 9.2 ml/min; Est GFR (Non-African American) 7.9 ml/min
[2021-10-25 18:28] LABS: Alanine Aminotransferase 9 U/L (7-52); Albumin Level 3.2 gm/dl (3.4-5.0); Alkaline Phosphatase 106 U/L (34-104); Anion Gap 12 (3-11); Aspartate Aminotransferase 13 U/L (13-39); BUN Creatinine Ratio 4.4 (10-20); Bilirubin,Total 0.3 mg/dl (0.2-1.0); Blood Urea Nitrogen 30 mg/dl (6-23); Calcium 7.8 mg/dl (8.5-10.1); Carbon Dioxide 22 mmol/L (21-32); Chloride 103 mmol/L (98-107); Creatine Kinase 251 U/L (30-223); Globulin 3.2 gm/dl (2.5-4.0); Glucose 160 mg/dl (70-99(Fasting)); Magnesium 1.9 mg/dl (1.7-2.4); Potassium 3.8 mmol/L (3.5-5.1); Sodium 137 mmol/L (136-145); Total Protein 6.4 gm/dl (6.0-8.3)
--- NOTE | 2021-10-25 19:21 | History & Physical Report ---
Date of Service October 25, 2021 Assessment & Plan (1) Seizure: Plan: This is a 56-year-old male who has significant past medical history of non-small cell lung cancer status post surgery, chemo, radiation with mets to bone, end- stage renal disease on hemodialysis, insulin-dependent T2DM, seizure disorder, gastroparesis status post gastric stimulator placement who presents to ED for altered mental status. Pt with witnessed seizure like activity in ER ~ 1 min, resolved and 2mg IV ativan given Patient recently hospitalized 10/20 and discharged today after receiving hemodialysis. He was admitted for intractable nausea vomiting in setting of gastroparesis, hypertensive urgency and cancer related pain. Post discharge was found today by family wandering outside and confused. EMS was summoned, BSG was normal and seizure-like activity witnessed in ED. Seizure disorder Tonic Clonic Seizure Admit to PCU Seizure precautions, aspiration precautions Consult neurology Received 500 mg IV Keppra in ED, will give additional 250 mg IV Keppra this evening Obtain Keppra and Lamictal levels Obtain EEG If mental status does not improve consider MRI Continue IV Keppra 750 mg IV twice daily Ativan as needed for seizure-like activity Remain n.p.o. for now and hold all medications will also hold recently increased fentanyl patch Obtain drug tox screen, alcohol level Place [facility] cath, urine c & s ordered End-stage renal disease on hemodialysis Consult nephrology for dialysis needs IDDM 2 lantus/novolog per protocol based on recent admission needs follow bsg a1c 9.1 10/21/21 HTN continue clonidine patch resume oral meds when able Metastatic lung cancer to bone s/p surg, xrt and chemo spoke to pts father who reports pt is dying and has less than 1 year to live follows oncology father wishes for no aggressive measures and confirms DNR/DNI DVT ppx: SQ Heparin Dispo: PCU DNR/DNI PCP Juan Lamb Pt was seen and examined in collaboration with Dr. Wells, please see addendum History of Present Illness Chief Complaint: AMS Primary Care Provider: Juan Lamb MD This is a 56-year-old male who has significant past medical history of non- small cell lung cancer status post surgery, chemo, radiation with mets to bone, end-stage renal disease on hemodialysis, insulin-dependent T2DM, seizure disorder, gastroparesis status post gastric stimulator placement who presents to ED for altered mental status. Of significance patient was recently hospitalized 10/20 and discharged today 10/25/2021. He was admitted for intractable nausea and vomiting as result of his gastroparesis. He was treated with EmEnd which improved his symptoms. He also had hypertensive urgency likely due to unable to take medications orally due to vomiting. His blood pressure medications were resumed at discharge. He does have end-stage renal disease and did complete hemodialysis while inpatient. His last hemodialysis was today prior to discharge. Pain management was on board in regards to patient's cancer-related pain. His fentanyl patch was increased to 75 mcg and he was receiving oxycodone every 4 hours as needed at 10 mg. After patient was discharged today he was found by family wandering outside. He was confused. EMS was summoned and found him to be confused but awake and with it. He alerted EMS that he needed an IV in his neck due to poor peripheral vasculature. He then became agitated and confused. He arrived to ED he did have witnessed approximately 1 minute of tonic-clonic seizure-like activity. He received 2 mg of IV Ativan with seizure cessation as well as 500 mg of IV Keppra. He also received a total of 1 L of IV fluid. He was significantly hypertensive in ER but this improved without treatment. History and ROS unable to obtain due to patient currently sedated and postictal. Allergies Allergy/AdvReac Type Severity Reaction Status Date / Time bee venom protein (honey bee) Allergy Severe Swelling Verified 10/25/21 17:13 at site, SOB cat dander Allergy Unknown Unknown Verified 10/25/21 17:13 Penicillins Allergy Unknown Amoxicillin- Verified 10/25/21 17:13 "since " Home Medications Medication Instructions Recorded Confirmed Type blood sugar diagnostic 04/26/21 09/12/21 History flash glucose sensor (FreeStyle 04/26/21 09/12/21 History Amparo 14 Day Sensor) gabapentin 400 mg capsule 400 mg PO TID 04/26/21 10/25/21 History insulin glargine 100 unit/mL (3 7 unit SUBCUT QPM ml 04/26/21 10/25/21 History mL) subcutaneous pen (Lantus Solostar U-100 Insulin) insulin lispro 100 unit/mL 1 sliding scale dose SUBCUT 04/26/21 10/25/21 History subcutaneous solution (Humalog USEASDIRECTD U-100 Insulin) clonidine 0.2 mg/24 hr weekly 0.2 mg TRANSDERMAL FR 06/30/21 10/25/21 History transdermal patch albuterol sulfate 90 mcg/actuation 2 puff INHALATION Q4H PRN #1 07/22/21 10/25/21 Rx aerosol inhaler (Ventolin HFA) inhaler glucagon 1 mg solution for 1 mg IM ONCE PRN #1 ea 07/22/21 10/25/21 Rx injection levetiracetam 750 mg tablet 750 mg PO BID #30 tab 07/22/21 10/25/21 Rx (Keppra) oxycodone 10 mg tablet 10 mg PO Q4H PRN 7 Days #14 tab 07/22/21 10/25/21 Rx lamotrigine 25 mg tablet (Lamictal) 37.5 mg PO QPM 09/29/21 10/25/21 History lisinopril 40 mg tablet 20 mg PO QAM 09/29/21 10/25/21 History omeprazole 40 mg capsule,delayed 40 mg PO QAM 09/29/21 10/25/21 History release Probiotic 1 tab PO DAILY 10/20/21 10/25/21 History fluticasone 250 mcg-salmeterol 50 1 inh INHALATION DAILY 10/20/21 10/25/21 History mcg/dose blistr powdr for inhalation metoclopramide HCl 10 mg tablet 10 mg PO TID 10/20/21 10/25/21 History rosuvastatin 20 mg tablet 20 mg PO DAILY 10/20/21 10/25/21 History fentanyl 75 mcg/hr transdermal 75 mcg TRANSDERMAL Q72H #3 ea 10/24/21 10/25/21 Rx patch ondansetron HCl 4 mg tablet 4 mg PO Q8H PRN 10/25/21 10/25/21 History Past Med/Surg History Medical History Anemia Cancer Axillary region- current Chronic pain COPD (chronic obstructive pulmonary disease) Diabetes mellitus type 2, uncontrolled Diabetic autonomic neuropathy Diabetic peripheral neuropathy Enlarged prostate ESRD (end stage renal disease) on dialysis Dialysis M/W/F via left chest port ([facility]) Gastroparesis s/p gastric stimulator History of Crohn's disease HTN (hypertension) Hypertension Lung cancer Dx 2016 [facility]; + hilar nodes; s/p left upper lobectomy + chemo Neurogenic bladder On home oxygen therapy 2L/min NC PRN (no use x 1+ months) Orthostatic hypotension Presence of gastric pacemaker Seizure disorder Hx grand mal seizures, no seizures x1+ years Surgical History H/O colonoscopy H/O esophagogastroduodenoscopy History of cholecystectomy History of knee surgery LEFT X 17/RIGHT X 2 History of tonsillectomy and adenoidectomy Hx of total knee arthroplasty S/P lobectomy of lung SHAWN Status post insertion of intrathecal pump explanted Family History Mother Diabetes Dementia Father Hypertension Diabetes Sister Crohn's disease Other Family history non-contributory Social History Smoking Status: Unknown if ever smoked Tobacco Type: Cigarettes Second Hand Exposure: No; Hx Alcohol Use: No Hx Substance Use: No Preferred Language: Welsh Communication Ability: Effective Visual Impairment: No Limitations Web Assistant Required: No Beliefs That Will Affect Care: None marital status: Single Current Living Situation: Alone Current Living Situation Comment: has family close by and available to assist current occupational status: disabled How many Children do You have: 5 Feels Safe at Home: Yes Diet Comment: Carb counting caffeine: No Physical Activity Frequency: Does not Exercise Physical Activity Frequency Comment: walks when able Assistive Devices: Glasses and Oxygen - at Night Review of Systems Review of Systems: Unobtainable due to cognitive status and Unobtainable due to reduced consciousness Physical Exam Physical Exam: Constitutional: WD/WN, vitals as above, NAD, lying in bed, unarousable to verbal or tactile stimulation, sleeping Head: Normocephalic, Atraumatic Eyes: PERRL but sluggish, conjunctivae normal, anicteric sclerae ENMT: external ear and nose normal, oropharynx normal dry membranes Neck: trachea midline, no thyromegaly normal visual inspection Respiratory: On OxyMax,normal respiratory effort, lungs clear to auscultation, no wheeze, rales, rhonchi. Normal insp/exp effort, no accessory muscle use Cardiovascular: RRR, no murmur, no edema Vessels: no JVD or carotid bruit Chest: normal inspection of chest Abdomen: normal bowel sounds, soft, nontender, no hepatosplenomegaly Musculoskeletal: no cyanosis or clubbing, unable to assess strength Skin: no rashes, warm and dry normal turgor Neurologic: PERRL, unable to assess due to unresponsiveness Psychiatric: Not alert, unable to assess : deferred Results & Data Results & Data ([facility]) Vital Signs (Past 12 Hours) Vital Signs Pulse Pulse Resp BP BP Pulse Ox 10/25/21 19:00 90 16 148/82 H 99 10/25/21 18:30 87 16 121/69 98 10/25/21 18:25 87 15 99 10/25/21 18:20 87 16 99 10/25/21 18:15 87 16 121/71 100 10/25/21 18:10 88 19 100 10/25/21 18:07 89 16 122/72 100 10/25/21 18:06 126/75 99 10/25/21 18:00 89 16 117/71 99 10/25/21 17:55 90 16 130/74 100 10/25/21 17:50 91 H 19 128/70 99 10/25/21 17:45 92 H 18 127/75 96 10/25/21 17:40 92 H 19 100 10/25/21 17:35 95 H 20 150/77 H 100 10/25/21 17:30 100 H 17 148/75 H 100 10/25/21 17:26 148/79 H 97 10/25/21 17:10 97 H 15 193/99 H 100 10/25/21 17:05 99 H 4 L 198/109 H 100 10/25/21 17:00 103 H 21 208/114 H 97 10/25/21 16:56 104 H 19 202/100 H 100 10/25/21 16:54 107 H 25 H 231/120 H 100 10/25/21 16:53 108 H 22 229/117 H 100 10/25/21 16:50 108 H 23 221/116 H 98 10/25/21 16:45 108 H 27 H 228/121 H 100 10/25/21 16:43 107 H 32 H 228/121 H 100 10/25/21 16:42 110 H 33 H 235/121 H [address] 10/25/21 16:49 CT head/brain wo con CLINICAL HISTORY: Altered mental status. Unresponsive. COMPARISON STUDY: 06/30/2021 CT DOSE: 1035.81 mGycm TECHNIQUE: Standard CT of the Brain was performed without IV contrast. A dose lowering technique was utilized adhering to the principles of ALARA. FINDINGS: Extraaxial space: There is no evidence for subdural hematoma. There are no extra-axial fluid collections. Ventricles and cisterns: The ventricles are normal in size and configuration. There is no evidence for midline shift or mass effect. Parenchyma: There is no subarachnoid or intraparenchymal hemorrhage. There is no evidence for an acute infarct or cerebral edema. There is homogeneous attenuation of the brain parenchyma. There are no gross mass lesions. Osseous structures: There is no evidence for an acute fracture. The visualized paranasal sinuses are clear. The mastoid air cells are clear bilaterally. Soft tissues: There is no evidence for focal soft tissue swelling. IMPRESSION: 1. No acute intracerebral pathology. ACT 112: Negative or not required by law. Electronically signed by: Pranav Yip M.D. 10/25/2021 5:36 PM Chest X-Ray 10/25/21 16:50 XR chest 1V portable CLINICAL HISTORY: weakness. Evaluate cardiopulmonary status COMPARISON STUDY: 10/20/2021 TECHNIQUE: 1 view of the chest obtained supine FINDINGS: Single frontal view of the chest demonstrates the cardiomediastinal silhouette to be within normal limits. There is a decreased inspiratory effort with elevation of the hemidiaphragms and crowding of the bronchovascular markings at the lung bases and centrally. The lungs are clear of alveolar opacities. There is no evidence for pleural effusion. There is no evidence for vascular congestion. There is no acute osseous pathology. Large-bore central venous catheter is again seen on the right. IMPRESSION: 1. There is a decreased inspiratory effort with otherwise no acute chest disease. ACT 112: Negative or not required by law. Electronically signed by: Pranav Yip M.D. 10/25/2021 5:12 PM Medications Administered Medication List Discontinued Medications Levetiracetam 500 mg/ Sodium (Chloride) 105 mls @ 440 mls/hr IV NOW STA Stop: 10/25/21 16:58 Last Infusion: 10/25/21 17:27 Dose: 0 mls/hr Documented by: [id number] Admin: 10/25/21 17:01 Dose: 440 mls/hr Documented by: [id number] Sodium Chloride (Nss) 500 mls @ 999 mls/hr IV .Q31M DAMIR Stop: 10/25/21 17:30 Last Infusion: 10/25/21 17:28 Dose: 0 mls/hr Documented by: [id number] Admin: 10/25/21 17:28 Dose: 999 mls/hr Documented by: [id number] Labetalol HCl (Labetalol Hcl Iv 5 Mg/Ml 20ml) 10 mg IV NOW STA Stop: 10/25/21 17:09 Last Admin: 10/25/21 17:27 Dose: Not Given Documented by: [id number] Lorazepam (Lorazepam 2 Mg/1 Ml Vial) Confirm Administered Dose 2 mg .ROUTE .STK-MED ONE Stop: 10/25/21 16:40 Last Admin: 10/25/21 17:01 Dose: 2 mg Documented by: [id number] ECG Rate (beats per minute): 107 Rhythm: normal sinus Additional Comments: qtc 477ms COVID-19 Results Results COVID-19 Adm Lab Results: RBC 3.13 M/uL (4.7-6.1) L 10/25/21 WBC 5.35 K/uL (4.8-10.8) 10/25/21 Hgb 9.1 g/dL (14.0-18.0) L 10/25/21 Hct 27.7 % (42-52) L 10/25/21 Plt Count 172 K/uL (130-400) 10/25/21 Neutrophils (%) (Auto) 80.4 % 10/25/21 Lymphocytes (%) (Auto) 16.6 % 10/25/21 Monocytes # (Auto) 0.01 K/uL (0.11-0.59) L 10/25/21 Eosinophils # (Auto) 0.14 K/uL (0-0.5) 10/25/21 Immature Granulocyte % (Auto) 0.2 % 10/25/21 Neutrophils # (Auto) 4.30 K/uL (1.4-6.5) 10/25/21 Lymphocytes # (Auto) 0.89 K/uL (1.2-3.4) L 10/25/21 Monocytes # (Auto) 0.01 K/uL (0.11-0.59) L 10/25/21 Eosinophils # (Auto) 0.14 K/uL (0-0.5) 10/25/21 Basophils # (Auto) 0.00 K/uL (0-0.2) 10/25/21 Immature Granulocyte # (Auto) 0.01 K/uL (0.00-0.02) 10/25/21 Na 137 mmol/L (136-145) 10/25/21 K 3.8 mmol/L (3.5-5.1) 10/25/21 Cl 103 mmol/L (98-107) 10/25/21 CO2 22 mmol/L (21-32) 10/25/21 Anion Gap 12 (3-11) H 10/25/21 BUN 30 mg/dl (6-23) H 10/25/21 Creatinine 7.04 mg/dl (0.6-1.4) H* 10/25/21 BUN/Creatinine Ratio 4.4 (10-20) L 10/25/21 Glucose Level 160 mg/dl (70-99(Fasting)) H 10/25/21 Ca 7.8 mg/dl (8.5-10.1) L 10/25/21 Total Bilirubin 0.3 mg/dl (0.2-1.0) 10/25/21 AST/SGOT 13 U/L (13-39) 10/25/21 ALT/SGPT 9 U/L (7-52) 10/25/21 Alkaline Phosphatase 106 U/L (34-104) H 10/25/21 Total Protein 6.4 gm/dl (6.0-8.3) 10/25/21 Albumin 3.2 gm/dl (3.4-5.0) L 10/25/21 Globulin 3.2 gm/dl (2.5-4.0) 10/25/21 Albumin/Globulin Ratio 1.0 (0.9-2) 10/25/21 Total CK 251 U/L (30-223) H 10/25/21 SARS-CoV-2, RNA, NAAT NEGATIVE (NEGATIVE) 10/25/21 Chest X-Ray 10/25/21 Code Status & VTE Plan Code Status DNR/DNI discussed with Father VTE Prophylaxis Plan VTE Prophylaxis will be ordered: Yes Supervising Physician Co-Signing Physician Notes Patient is a 56-year-old male with history of non-small cell lung cancer with mental status, end-stage renal disease on dialysis, diabetes mellitus, seizure disorder and other medical problems presents with altered mental status. Patient was hospitalized at [facility] and discharged today after being treated for gastroparesis, hypertensive urgency.Currently patient is obtunded and unable to provide any history. Most of the history is obtained from ER staff, old records and family. Patient had hemodialysis today. His fentanyl patch was increased to 75 mcg during prior hospitalization. Patient was found confused, agitated and ER staff witnessed a seizure episode lasting for about 1 minute while in ED. Currently patient is postictal and difficult to be awakened. Blood work showed hemoglobin 9.1, BUN 30, creatinine 7.04, glucose 160, calcium 7.8, alkaline phosphatase 106, CK251, prolactin 27.8. Urine analysis pending. Drug screen, ammonia, Keppra and Lamictal levels, alcohol level and VBG currently pending as well. CT head showed no acute intracerebral pathology. Chest x-ray not contributory as well. On exam patient is chronic ill-appearing, obtunded, normocephalic atraumatic, pupils sluggishly reactive to light, normal breath sounds, clear to auscultation, S1-S2, no murmur, no pedal edema, abdomen soft, normal bowel sounds, unconscious and unable to perform complete neurological exam. Patient is admitted for management of breakthrough seizure. Continue Keppra, Lamictal. Obtain EEG. Consider MRI brain if no improvement given history of metastatic disease. Neurology consulted. Aspiration, fall, seizure precautions requested. Further management based on above pending studies. Nephrology consulted for dialysis management. Agree with holding sedating medications. Resume home medications as able. I personally reviewed the record. Patient is interviewed and examined at bedside. Patient's care is coordinated with Mariajose Hillman PA-C. Please refer to the documentation above for details of patient's presentation and for discussion of other issues.
[2021-10-25 20:39] LABS: Appearance Urine Clear (Clear); Bacteria Urine Automated Negative (Negative); Bilirubin Urine Negative (Negative); Blood Urine Trace (Negative); Cast Urine Automated 0 /lpf (0-5); Color Urine Yellow; Epithelial Cell Urine Auto 20-30 /lpf (0-5); Glucose Urine UA 2+ (Negative); Ketones Urine Negative (Negative); Leukocyte Esterase Urine Negative (Negative); Nitrite Urine Negative (Negative); Protein Urine 4+ (Negative); RBC Urine Automated 0-4 /hpf (0-4); Specific Gravity Urine 1.019 (1.000-1.030); Urobilinogen Urine Negative (Negative)
[2021-10-25 20:42] LABS: Base Excess VBG -1.4 mEq/L; HCO3 VBG 26 mmol/L; Oxygen Saturation VBG 85.9 %; PCO2 VBG 56 mmHg (38-50); PO2 VBG 51 mmHg; pH VBG 7.28 (7.36-7.41)
[2021-10-25 21:10] LABS: Amphetamines+Metham, Urine Neg (Neg); Barbiturates, Urine Neg (Neg); Benzodiazepine, Urine Neg (Neg); Cocaine, Urine Neg (Neg); MDMA (Ecstacy), Urine Neg (Neg); Methadone, Urine Neg (Neg); Opiate, Urine Pos (Neg); Phencyclidine, Urine Neg (Neg)
[2021-10-25] MEDS ORDERED: GLUCOSE 10 TABS/TUBE PO PRN (23:56)
[2021-10-25] MEDS ORDERED: ONDANSETRON INJ 2 MG/ML 2 ML VIAL IV PRN (23:56)
[2021-10-25] MEDS ORDERED: GLUCOSE 40% GEL 15 GM TUBE PO PRN (23:56)
[2021-10-25] MEDS ORDERED: LORazepam 2 MG in SYRINGE 0.25 ML IV PRN (23:56)
[2021-10-25] MEDS ORDERED: GLUCAGON FOR INJ 1 MG VIAL SQ PRN (23:56)
[2021-10-25] MEDS ORDERED: DEXTROSE 50% 50 ML SYRINGE IV PRN (23:56)
[2021-10-26] MEDS ORDERED: levETIRAcetam 250 MG in 0.9 % SODIUM CHLORIDE 100 ML IV SCH (00:15)
[2021-10-26] MEDS: HEPARIN SOD 5,000 UNIT/0.5 ML VIAL SQ SCH ×4 (01:54→21:29)
[2021-10-26] MEDS: INSULIN GLARGINE SOLOSTAR 100 UNITS/ML 3 ML PEN SC SCH ×3 (01:55→21:28)
[2021-10-26] MEDS: INSULIN ASPART PER UNIT SC SCH ×5 (01:55→21:17)
[2021-10-26 06:38] LABS: Hematocrit (blood only) 27.4 % (42-52); Hemoglobin 8.8 g/dL (14.0-18.0); Lymphocytes % (auto) 16.6 %; Mean Corpuscular Hemoglobin 29.2 pg (25-34); Mean Corpuscular Hgb Conc 32.1 g/dL (32-36); Neutrophils % (auto) 69.3 %; Platelet Count 164 K/uL (130-400); RDW Coefficient of Variation 14.2 % (11.5-14.5); RDW Standard Deviation 47.3 fL (36.4-46.3); Red Blood Count 3.01 M/uL (4.7-6.1); White Blood Count 6.32 K/uL (4.8-10.8)
[2021-10-26 06:39] LABS: Basophils # (auto) 0.01 K/uL (0-0.2); Basophils % (auto) 0.2 %; Eosinophils # (auto) 0.25 K/uL (0-0.5); Immature Granulocytes # (auto) 0.01 K/uL (0.00-0.02); Immature Granulocytes % (auto) 0.2 %; Lymphocytes # (auto) 1.05 K/uL (1.2-3.4); Monocytes # (auto) 0.61 K/uL (0.11-0.59); Monocytes % (auto) 9.7 %; Neutrophils # (auto) 4.39 K/uL (1.4-6.5)
[2021-10-26 07:40] LABS: BUN Creatinine Ratio 4.6 (10-20); Bilirubin,Total 0.3 mg/dl (0.2-1.0); Calcium 7.4 mg/dl (8.5-10.1); Creatinine Clr Calc Pharmacy 10.4 ml/min; Est GFR (African American) 8.3 ml/min; Est GFR (Non-African American) 7.2 ml/min; Globulin 3.1 gm/dl (2.5-4.0); Magnesium 1.9 mg/dl (1.7-2.4); Potassium 4.2 mmol/L (3.5-5.1); Total Protein 6.1 gm/dl (6.0-8.3)
[2021-10-26] MEDS: levETIRAcetam 750 MG in 0.9 % SODIUM CHLORIDE 100 ML IV SCH ×2 (08:45→21:28)
[2021-10-26] MEDS: CHECK CLONIDINE PATCH PLACEMENT SCH ×2 (08:48→16:55)
[2021-10-26] MEDS ORDERED: SODIUM CHLORIDE 0.9% 1000ML 1,000 ML IV PRN (10:40)
[2021-10-26] MEDS ORDERED: HEPARIN SOD (PORCINE) 1000 UNIT/ML IV ONE (10:40)
--- NOTE | 2021-10-26 10:40 | Nephrology Consultation ---
Date of Consultation October 26, 2021 Assessment & Plan (1) ESRD (end stage renal disease) on dialysis: Patient with ESRD on dialysis Saturday via permacath. His last dialysis was on Saturday. He missed dialysis yesterday and was planned to have dialysis today outpatient. We will dialyze him today for 3 hours and target UF of 2 L. (2) Seizure disorder: Patient is on Keppra renally dosed. Continue to monitor for breakthrough seizures. History of Present Illness Reason for Consultation: ESRD Requesting Physician: Stephon Vernon MD Attending Physician: Stephon Vernon MD History of Present Illness This is a 56-year-old male who has significant past medical history of non-small cell lung cancer status post surgery, chemo, radiation with mets to bone, end- stage renal disease on hemodialysis, insulin-dependent T2DM, seizure disorder, gastroparesis status post gastric stimulator placement who was admitted with altered mental status. Patient had just been discharged on 10/25/2021. He had missed his dialysis the same day and was planned to have dialysis the next day outpatient. He was seated outside at home and fell down. He could not get up or even access his phone. He stayed there until he was later found. Pt with witnessed seizure like activity in ER ~ 1 min, resolved and 2mg IV ativan given. He was given Keppra. He has not had subsequent seizures. He reports feeling better today. No shortness of breath or vomiting. No leg swelling. Allergies Allergy/AdvReac Type Severity Reaction Status Date / Time bee venom protein (honey bee) Allergy Severe Swelling Verified 10/25/21 17:13 at site, SOB cat dander Allergy Unknown Unknown Verified 10/25/21 17:13 Penicillins Allergy Unknown Amoxicillin- Verified 10/25/21 17:13 "since " Home Medications Medication Instructions Recorded Confirmed Type blood sugar diagnostic 04/26/21 09/12/21 History flash glucose sensor (FreeStyle 04/26/21 09/12/21 History Amparo 14 Day Sensor) gabapentin 400 mg capsule 400 mg PO TID 04/26/21 10/25/21 History insulin glargine 100 unit/mL (3 7 unit SUBCUT QPM ml 04/26/21 10/25/21 History mL) subcutaneous pen (Lantus Solostar U-100 Insulin) insulin lispro 100 unit/mL 1 sliding scale dose SUBCUT 04/26/21 10/25/21 History subcutaneous solution (Humalog USEASDIRECTD U-100 Insulin) clonidine 0.2 mg/24 hr weekly 0.2 mg TRANSDERMAL FR 06/30/21 10/25/21 History transdermal patch albuterol sulfate 90 mcg/actuation 2 puff INHALATION Q4H PRN #1 07/22/21 10/25/21 Rx aerosol inhaler (Ventolin HFA) inhaler glucagon 1 mg solution for 1 mg IM ONCE PRN #1 ea 07/22/21 10/25/21 Rx injection levetiracetam 750 mg tablet 750 mg PO BID #30 tab 07/22/21 10/25/21 Rx (Keppra) oxycodone 10 mg tablet 10 mg PO Q4H PRN 7 Days #14 tab 07/22/21 10/25/21 Rx lamotrigine 25 mg tablet (Lamictal) 37.5 mg PO QPM 09/29/21 10/25/21 History lisinopril 40 mg tablet 20 mg PO QAM 09/29/21 10/25/21 History omeprazole 40 mg capsule,delayed 40 mg PO QAM 09/29/21 10/25/21 History release Probiotic 1 tab PO DAILY 10/20/21 10/25/21 History fluticasone 250 mcg-salmeterol 50 1 inh INHALATION DAILY 10/20/21 10/25/21 History mcg/dose blistr powdr for inhalation metoclopramide HCl 10 mg tablet 10 mg PO TID 10/20/21 10/25/21 History rosuvastatin 20 mg tablet 20 mg PO DAILY 10/20/21 10/25/21 History fentanyl 75 mcg/hr transdermal 75 mcg TRANSDERMAL Q72H #3 ea 10/24/21 10/25/21 Rx patch ondansetron HCl 4 mg tablet 4 mg PO Q8H PRN 10/25/21 10/25/21 History Patient History Medical History Anemia Cancer Axillary region- current Chronic pain COPD (chronic obstructive pulmonary disease) Diabetes mellitus type 2, uncontrolled Diabetic autonomic neuropathy Diabetic peripheral neuropathy Enlarged prostate ESRD (end stage renal disease) on dialysis Dialysis M/W/F via left chest port ([facility]) Gastroparesis s/p gastric stimulator History of Crohn's disease HTN (hypertension) Hypertension Lung cancer Dx 2016 [facility]; + hilar nodes; s/p left upper lobectomy + chemo Neurogenic bladder On home oxygen therapy 2L/min NC PRN (no use x 1+ months) Orthostatic hypotension Presence of gastric pacemaker Seizure disorder Hx grand mal seizures, no seizures x1+ years Surgical History H/O colonoscopy H/O esophagogastroduodenoscopy History of cholecystectomy History of knee surgery LEFT X 17/RIGHT X 2 History of tonsillectomy and adenoidectomy Hx of total knee arthroplasty S/P lobectomy of lung SHAWN Status post insertion of intrathecal pump explanted Family History Mother Diabetes Dementia Father Hypertension Diabetes Sister Crohn's disease Other Family history non-contributory Social History Smoking Status: Former smoker Tobacco Type: Cigarettes Second Hand Exposure: No; Hx Alcohol Use: No Hx Substance Use: No Preferred Language: Albanian Communication Ability: Effective Visual Impairment: No Limitations Electrotyper Apprentice Required: No Beliefs That Will Affect Care: None marital status: Single Current Living Situation: Alone Current Living Situation Comment: has family close by and available to assist current occupational status: disabled How many Children do You have: 5 Feels Safe at Home: Yes Safety Concerns: Feels Safe At This Time Diet Comment: Carb counting caffeine: No Physical Activity Frequency: Does not Exercise Physical Activity Frequency Comment: walks when able Assistive Devices: Cane, Oxygen - Continuous and Walker Review of Systems Review of Systems: All other systems were reviewed and negative except as noted in HPI Physical Exam Physical Exam: General exam: Appears comfortable, no acute distress HEENT: Pupils are equal and reactive to light Neck: No JVD, neck is supple trachea is midline Respiratory system: Clear breath sounds bilaterally. Gastrointestinal: Abdomen is soft, non distended, non tender, bowel sounds are present CVS: Regular rate and rhythm. No murmurs, rubs or gallops Musculoskeletal: No joint or muscle tenderness Extremities: Non tender, no edema, peripheral pulses are present Neuro: Oriented, no tremors, no focal neurological deficits Skin: No rashes Results & Data ([facility]) Vital Signs (Past 12 Hours) Vital Signs Temp Pulse Pulse Resp BP BP BP 10/26/21 08:00 79 10/26/21 07:57 37.0 C 84 18 148/91 H 10/26/21 03:39 36.4 C L 76 14 152/91 H 10/26/21 00:39 36.9 C 78 16 158/83 H 10/25/21 23:35 83 10/25/21 23:04 76 16 104/68 10/25/21 23:02 76 16 104/68 Pulse Ox 10/26/21 08:00 10/26/21 07:57 97 10/26/21 03:39 97 10/26/21 00:39 99 10/25/21 23:35 10/25/21 23:04 99 10/25/21 23:02 99 Laboratory Results 10/26/21 05:55 10/25/21 10/25/21 10/26/21 16:57 16:57 05:55 WBC 5.35 6.32 RBC 3.13 L 3.01 L MCV 88.5 91.0 MCH 29.1 29.2 MCHC 32.9 32.1 RDW Std Deviation 45.7 47.3 H RDW Coeff of Rik 14.1 14.2 Plt Count 172 164 MPV 11.6 H 12.0 H Albumin 3.2 L 10/26/21 05:55 WBC RBC MCV MCH MCHC RDW Std Deviation RDW Coeff of Rik Plt Count MPV Albumin 3.0 L
--- NOTE | 2021-10-26 14:24 | Neurology Consultation ---
Date of Consultation October 26, 2021 Assessment & Plan (1) Seizure: 1. MRI without contrast for possible mets 2. continue Keppra 750 mg q 12 hours 3. continue lamictal 37.5 mg pm 4. keppra and lamictal level after dialysis may need to dose 750 mg after dialysis if keppra level is low 5. PT/OT for discharge needs discharge once medically stable will see in office after discharge for further recommendations (2) Hypertensive urgency: Supervising Physician Co-Signing Physician Notes I have seen and discussed above patient with Dr Rodo Wright, neurology I have interviewed and examined this man in the dialysis unit and unfortunately he is pretty lethargic but insists that he has not had a seizure in over a year and it the seizure that precipitated the current admission was unusual. He claims to be vomiting every day but on discussion with his attending physician it turns out he is nauseated most days but rarely vomits and I suspect the cause of this event was low blood levels of Keppra and perhaps Lamictal related to vomiting medications but in light of his known underlying lung cancer non-small cell type and despite a negative noncontrast CT scan I think we need to do at least a noncontrast MRI to exclude the possibility of metastatic disease and occult infarctions that could have produced cortical irritation breakthrough seizures We are also going to recommend that he have immediate postdialysis levels of Keppra and Lamictal done so we have a baseline for potential future recommendations to load him up with 750 mg of Keppra postdialysis which is one of the standard means we maintain drug levels in patients with renal failure on Keppra. I see no need to change his basic doses of either Lamictal or Keppra which seem to be appropriately renally adjusted and in fact his Keppra level several weeks ago was subtherapeutic at all not sure the temporal relationship between the time the blood was drawn and his receipt of dialysis Dr. Carter will be available tomorrow and will be taking over the consultation service We will try to arrange for a follow-up visit in neurology within the next several weeks which point we can review the inpatient anticonvulsant levels and make recommendations accordingly for further management during dialysis Rodo Wright MD History of Present Illness Reason for Consultation: seizure Requesting Physician: Stephon Vernon MD Attending Physician: Stephon Vernon MD History of Present Illness Jeff is a 56 year old male who has a PMH -non-small cell lung cancer status post surgery, chemo, radiation with mets to bone, end-stage renal disease on hemodialysis, DM2 -insulin dep., seizure disorder, gastroparesis status post gastric stimulator placement who presents to [facility] ED 10/25/21 for altered mental status. He was recently hospitalized 10/20 and discharged today 10/25/2021. He was admitted for intractable nausea and vomiting as result of his gastroparesis. He also had hypertensive urgency likely due to unable to take me dications orally due to vomiting. His blood pressure medications were resumed at discharge. He does have end-stage renal disease and did complete hemodialysis while inpatient. His last hemodialysis was today prior to discharge. Pain management was on board in regards to patient's cancer-related pain. His fentanyl patch was increased to 75 mcg and he was receiving oxycodone every 4 hours as needed at 10 mg. After patient was discharged, he was found by family wandering outside and was confused. EMS was summoned and found him to be confused but awake and with it. He alerted EMS that he needed an IV in his neck due to poor peripheral vasculature. He then became agitated and confused. He arrived to ED he did have witnessed approximately 1 minute of tonic-clonic seizure-like activity. He received 2 mg of IV Ativan with seizure cessation as well as 500 mg of IV Keppra. He also received a total of 1 L of IV fluid. He was significantly hypertensive in ER but this improved without treatment. He is seen in dialysis today and is very drowsy. He claims he has been vomiting more than usual. Allergies Allergy/AdvReac Type Severity Reaction Status Date / Time bee venom protein (honey bee) Allergy Severe Swelling Verified 10/25/21 17:13 at site, SOB cat dander Allergy Unknown Unknown Verified 10/25/21 17:13 Penicillins Allergy Unknown Amoxicillin- Verified 10/25/21 17:13 "since " Home Medications Medication Instructions Recorded Confirmed Type blood sugar diagnostic 04/26/21 09/12/21 History flash glucose sensor (FreeStyle 04/26/21 09/12/21 History Amparo 14 Day Sensor) gabapentin 400 mg capsule 400 mg PO TID 04/26/21 10/25/21 History insulin glargine 100 unit/mL (3 7 unit SUBCUT QPM ml 04/26/21 10/25/21 History mL) subcutaneous pen (Lantus Solostar U-100 Insulin) insulin lispro 100 unit/mL 1 sliding scale dose SUBCUT 04/26/21 10/25/21 History subcutaneous solution (Humalog USEASDIRECTD U-100 Insulin) clonidine 0.2 mg/24 hr weekly 0.2 mg TRANSDERMAL FR 06/30/21 10/25/21 History transdermal patch albuterol sulfate 90 mcg/actuation 2 puff INHALATION Q4H PRN #1 07/22/21 10/25/21 Rx aerosol inhaler (Ventolin HFA) inhaler glucagon 1 mg solution for 1 mg IM ONCE PRN #1 ea 07/22/21 10/25/21 Rx injection levetiracetam 750 mg tablet 750 mg PO BID #30 tab 07/22/21 10/25/21 Rx (Keppra) oxycodone 10 mg tablet 10 mg PO Q4H PRN 7 Days #14 tab 07/22/21 10/25/21 Rx lamotrigine 25 mg tablet (Lamictal) 37.5 mg PO QPM 09/29/21 10/25/21 History lisinopril 40 mg tablet 20 mg PO QAM 09/29/21 10/25/21 History omeprazole 40 mg capsule,delayed 40 mg PO QAM 09/29/21 10/25/21 History release Probiotic 1 tab PO DAILY 10/20/21 10/25/21 History fluticasone 250 mcg-salmeterol 50 1 inh INHALATION DAILY 10/20/21 10/25/21 History mcg/dose blistr powdr for inhalation metoclopramide HCl 10 mg tablet 10 mg PO TID 10/20/21 10/25/21 History rosuvastatin 20 mg tablet 20 mg PO DAILY 10/20/21 10/25/21 History fentanyl 75 mcg/hr transdermal 75 mcg TRANSDERMAL Q72H #3 ea 10/24/21 10/25/21 Rx patch ondansetron HCl 4 mg tablet 4 mg PO Q8H PRN 10/25/21 10/25/21 History Patient History Medical History Anemia Cancer Axillary region- current Chronic pain COPD (chronic obstructive pulmonary disease) Diabetes mellitus type 2, uncontrolled Diabetic autonomic neuropathy Diabetic peripheral neuropathy Enlarged prostate ESRD (end stage renal disease) on dialysis Dialysis M/W/F via left chest port ([facility]) Gastroparesis s/p gastric stimulator History of Crohn's disease HTN (hypertension) Hypertension Lung cancer Dx 2016 [place]; + hilar nodes; s/p left upper lobectomy + chemo Neurogenic bladder On home oxygen therapy 2L/min NC PRN (no use x 1+ months) Orthostatic hypotension Presence of gastric pacemaker Seizure disorder Hx grand mal seizures, no seizures x1+ years Surgical History H/O colonoscopy H/O esophagogastroduodenoscopy History of cholecystectomy History of knee surgery LEFT X 17/RIGHT X 2 History of tonsillectomy and adenoidectomy Hx of total knee arthroplasty S/P lobectomy of lung SHWAN Status post insertion of intrathecal pump explanted Family History Mother Diabetes Dementia Father Hypertension Diabetes Sister Crohn's disease Other Family history non-contributory Social History Smoking Status: Former smoker Tobacco Type: Cigarettes Second Hand Exposure: No; Hx Alcohol Use: No Hx Substance Use: No Preferred Language: Yakut Communication Ability: Effective Visual Impairment: No Limitations Inspector Multifocal Lens Required: No Beliefs That Will Affect Care: None marital status: Single Current Living Situation: Alone Current Living Situation Comment: has family close by and available to assist current occupational status: disabled How many Children do You have: 5 Feels Safe at Home: Yes Safety Concerns: Feels Safe At This Time Diet Comment: Carb counting caffeine: No Physical Activity Frequency: Does not Exercise Physical Activity Frequency Comment: walks when able Assistive Devices: Cane, Oxygen - Continuous and Walker Review of Systems Review of Systems: All systems reviewed & are unremarkable except as noted in HPI & below Physical Exam Physical Exam: Physical Exam: Constitutional: BP 110/78 | Pulse 68 | Temp (Src) 96.4 (Tympanic) | Resp 12 | Wt 175 lbs 12.8 oz (79.742kg) | BMI 32.15 kg/m | BSA 1.87 m, appearance nourished, healthy and normal Ears, Nose, Mouth and Throat: mucous membranes moist, no injection and skin normal, eyes normal Cardiovascular: normal S-1 and S-2 and regular rate and rhythm Respiratory: normal respiration effort Musculoskeletal: good distal pulses Skin: no stigmata of neurocutaneous disease noted and normal and intact NEUROLOGIC EXAMINATION: Mental status: Alert and but minimally interactive Oriented to person Speech fluent with no evidence of aphasia Cranial Nerves facial symmetry Coordination: not tested Gait/Stance: Posture lying in dialysis Strength: deconditioned weak Results & Data ([facility]) Vital Signs (Past 12 Hours) Vital Signs Temp Pulse Pulse Pulse Resp BP BP 10/26/21 14:00 77 95/65 L 10/26/21 13:40 77 107/59 L 10/26/21 13:20 80 123/77 10/26/21 13:01 82 146/82 H 10/26/21 12:51 36.5 C 85 10/26/21 11:39 36.8 C 81 9 L 116/71 10/26/21 08:00 79 10/26/21 07:57 37.0 C 84 18 148/91 H 10/26/21 03:39 36.4 C L 76 14 152/91 H Pulse Ox 10/26/21 14:00 10/26/21 13:40 10/26/21 13:20 10/26/21 13:01 10/26/21 12:51 10/26/21 11:39 96 10/26/21 08:00 10/26/21 07:57 97 10/26/21 03:39 97 Laboratory Results Abnormal lab results 10/25/21 10/25/21 10/25/21 Range/Units 16:57 16:57 18:13 RBC 3.13 L (4.7-6.1) M/uL Hgb 9.1 L (14.0-18.0) g/dL Hct 27.7 L (42-52) % RDW Std Deviation (36.4-46.3) fL MPV 11.6 H (7.4-10.4) fL Lymph # (Auto) 0.89 L (1.2-3.4) K/uL [place] # (Auto) 0.01 L (0.11-0.59) K/uL VBG pH (7.36-7.41) VBG pCO2 (38-50) mmHg Anion Gap 12 H (3-11) BUN 30 H (6-23) mg/dl Creatinine 7.04 H* D (0.6-1.4) mg/dl BUN/Creatinine Ratio 4.4 L (10-20) Glucose 160 H (70-99(Fasting)) mg/dl POC Glucose 185 H (70-99) mg/dl Calcium 7.8 L (8.5-10.1) mg/dl Alkaline Phosphatase 106 H (34-104) U/L Total Creatine Kinase 251 H (30-223) U/L Albumin 3.2 L (3.4-5.0) gm/dl Urine Protein (Negative) Urine Glucose (UA) (Negative) Urine Blood (Negative) U Epithel Cells (Auto) (0-5) /lpf Urine Opiates Screen (Neg) 10/25/21 10/25/21 10/25/21 Range/Units 20:19 20:19 20:32 RBC (4.7-6.1) M/uL Hgb (14.0-18.0) g/dL Hct (42-52) % RDW Std Deviation (36.4-46.3) fL MPV (7.4-10.4) fL Lymph # (Auto) (1.2-3.4) K/uL [place] # (Auto) (0.11-0.59) K/uL VBG pH 7.28 L (7.36-7.41) VBG pCO2 56 H (38-50) mmHg Anion Gap (3-11) BUN (6-23) mg/dl Creatinine (0.6-1.4) mg/dl BUN/Creatinine Ratio (10-20) Glucose (70-99(Fasting)) mg/dl POC Glucose (70-99) mg/dl Calcium (8.5-10.1) mg/dl Alkaline Phosphatase (34-104) U/L Total Creatine Kinase (30-223) U/L Albumin (3.4-5.0) gm/dl Urine Protein 4+ H (Negative) Urine Glucose (UA) 2+ H (Negative) Urine Blood Trace H (Negative) U Epithel Cells (Auto) 20-30 H (0-5) /lpf Urine Opiates Screen Pos H (Neg) 10/26/21 10/26/21 10/26/21 Range/Units 00:27 05:55 05:55 RBC 3.01 L (4.7-6.1) M/uL Hgb 8.8 L (14.0-18.0) g/dL Hct 27.4 L (42-52) % RDW Std Deviation 47.3 H (36.4-46.3) fL MPV 12.0 H (7.4-10.4) fL Lymph # (Auto) 1.05 L (1.2-3.4) K/uL [place] # (Auto) 0.61 H (0.11-0.59) K/uL VBG pH (7.36-7.41) VBG pCO2 (38-50) mmHg Anion Gap (3-11) BUN 35 H (6-23) mg/dl Creatinine 7.64 H* D (0.6-1.4) mg/dl BUN/Creatinine Ratio 4.6 L (10-20) Glucose 116 H (70-99(Fasting)) mg/dl POC Glucose 146 H (70-99) mg/dl Calcium 7.4 L (8.5-10.1) mg/dl Alkaline Phosphatase 105 H (34-104) U/L Total Creatine Kinase (30-223) U/L Albumin 3.0 L (3.4-5.0) gm/dl Urine Protein (Negative) Urine Glucose (UA) (Negative) Urine Blood (Negative) U Epithel Cells (Auto) (0-5) /lpf Urine Opiates Screen (Neg) 10/26/21 10/26/21 Range/Units 06:09 11:14 RBC (4.7-6.1) M/uL Hgb (14.0-18.0) g/dL Hct (42-52) % RDW Std Deviation (36.4-46.3) fL MPV (7.4-10.4) fL Lymph # (Auto) (1.2-3.4) K/uL [place] # (Auto) (0.11-0.59) K/uL VBG pH (7.36-7.41) VBG pCO2 (38-50) mmHg Anion Gap (3-11) BUN (6-23) mg/dl Creatinine (0.6-1.4) mg/dl BUN/Creatinine Ratio (10-20) Glucose (70-99(Fasting)) mg/dl POC Glucose 109 H 192 H (70-99) mg/dl Calcium (8.5-10.1) mg/dl Alkaline Phosphatase (34-104) U/L Total Creatine Kinase (30-223) U/L Albumin (3.4-5.0) gm/dl Urine Protein (Negative) Urine Glucose (UA) (Negative) Urine Blood (Negative) U Epithel Cells (Auto) (0-5) /lpf Urine Opiates Screen (Neg) Diagnostic Findings CT head-No acute intracerebral pathology. CXR-There is a decreased inspiratory effort with otherwise no acute chest disease.
--- NOTE | 2021-10-26 14:46 | Hospitalist Progress Note ---
Date of Service October 26, 2021 Assessment & Plan (1) Seizure: Plan: This is a 56-year-old male who has significant past medical history of non-small cell lung cancer status post surgery, chemo, radiation with mets to bone, end- stage renal disease on hemodialysis, insulin-dependent T2DM, seizure disorder, gastroparesis status post gastric stimulator placement who presents to ED for altered mental status. Pt with witnessed seizure like activity in ER ~ 1 min, resolved and 2mg IV ativan given Patient recently hospitalized 10/20 and discharged today after receiving hemodialysis. He was admitted for intractable nausea vomiting in setting of gastroparesis, hypertensive urgency and cancer related pain. Post discharge was found today by family wandering outside and confused. EMS was summoned, BSG was normal and seizure-like activity witnessed in ED. Seizure disorder Tonic Clonic Seizure Seizure precautions, aspiration precautions Consult neurology-appreciate input and recommendation Received 500 mg IV Keppra in ED, will give additional 250 mg IV Keppra this evening Obtain Keppra and Lamictal levels-pending for now Obtain EEG-pending If mental status does not improve consider MRI-MRI has been ordered Continue IV Keppra 750 mg IV twice daily Ativan as needed for seizure-like activity Has been tolerating oral diet Obtain drug tox screen, alcohol level-noted and pending Place Peace cath, urine c & s ordered End-stage renal disease on hemodialysis Consult nephrology for dialysis needs Appreciate nephrology input and recommendation Will have dialysis today IDDM 2 lantus/novolog per protocol based on recent admission needs follow bsg a1c 9.1 10/21/21 HTN continue clonidine patch resume oral meds when able Blood pressure remains on the lower side Metastatic lung cancer to bone s/p surg, xrt and chemo spoke to pts father who reports pt is dying and has less than 1 year to live follows oncology father wishes for no aggressive measures and confirms DNR/DNI DVT ppx: SQ Heparin Dispo: PCU DNR/DNI PCP Juan Lamb Admission and Anticipated Discharge Date Admission Date: October 25, 2021 Subjective 10/26/2021 Patient was seen and examined in telemetry unit Yes significant past medical history including and decisional disease on hemodialysis and seizure disorder He was discharged home yesterday and came back right away with a seizure activity Received additional dose of seizure medications He woke up this morning and wanted to leave the hospital Remained stable during examination Review of Systems Review of Systems: All systems reviewed and are unremarkable except as noted below Physical Exam Physical Exam: Sitting on the bed without any acute distress but remains drowsy Constitutional: well developed, well nourished, + ill appearing and average body habitus Eyes: PERRL, conjunctivae normal, anicteric sclerae ENMT: external ear and nose normal, oropharynx normal Neck: trachea midline, no thyromegaly Respiratory: no respiratory distress Auscultation: + diminished lung sounds and + crackles (Minimal crackles at the bases) Gastrointestinal (Abdomen): Inspection/Auscultation: normal bowel sounds; abdomen not distended Percussion/Palpation: abdomen soft; abdomen nontender Musculoskeletal: No acute arthritis in any joint Neurologic: Alert and awake. Remains drowsy but communicating normally. No focal neurodeficit Results & Data Results & Data ([facility]) Vital Signs (Past 12 Hours) Vital Signs Temp Pulse Pulse Pulse Resp BP BP 10/26/21 14:20 77 107/66 10/26/21 14:00 77 95/65 L 10/26/21 13:40 77 107/59 L 10/26/21 13:20 80 123/77 10/26/21 13:01 82 146/82 H 10/26/21 12:51 36.5 C 85 10/26/21 11:39 36.8 C 81 9 L 116/71 10/26/21 08:00 79 10/26/21 07:57 37.0 C 84 18 148/91 H 10/26/21 03:39 36.4 C L 76 14 152/91 H Pulse Ox 10/26/21 14:20 10/26/21 14:00 10/26/21 13:40 10/26/21 13:20 10/26/21 13:01 10/26/21 12:51 10/26/21 11:39 96 10/26/21 08:00 10/26/21 07:57 97 10/26/21 03:39 97 Laboratory Results Short CBC 10/25/21 10/26/21 Range/Units 16:57 05:55 WBC 5.35 6.32 (4.8-10.8) K/uL Hgb 9.1 L 8.8 L (14.0-18.0) g/dL Hct 27.7 L 27.4 L (42-52) % Plt Count 172 164 (130-400) K/uL BMP 10/25/21 10/26/21 16:57 05:55 Sodium 137 136 Potassium 3.8 4.2 Chloride 103 101 Carbon Dioxide 22 28 BUN 30 H 35 H Creatinine 7.04 H* D 7.64 H* D Glucose 160 H 116 H Calcium 7.8 L 7.4 L Cardiac Enzymes 10/25/21 Range/Units 16:57 Total Creatine Kinase 251 H (30-223) U/L Liver Function 10/25/21 10/26/21 Range/Units 16:57 05:55 Total Bilirubin 0.3 0.3 (0.2-1.0) mg/dl AST 13 19 (13-39) U/L ALT 9 10 (7-52) U/L Alkaline Phosphatase 106 H 105 H (34-104) U/L Albumin 3.2 L 3.0 L (3.4-5.0) gm/dl Urine 10/25/21 Range/Units 20:19 Urine Color Yellow Urine Appearance Clear (Clear) Urine pH 7.0 (4.5-7.5) Ur Specific [place] 1.019 (1.000-1.030) Urine Protein 4+ H (Negative) Urine Glucose (UA) 2+ H (Negative) Medications Administered Current Inpatient Medications Clonidine HCl (Clonidine Hcl 0.2 Mg/24 Hr Transderm Sys) 0.2 patch TD Fr@0900 [facility] Stop: 11/26/21 08:59 Dextrose (Dextrose 50% 50 Ml Syringe) 25 - 50 ml IV UD PRN; Protocol PRN Reason: Hypoglycemia Protocol Stop: 11/24/21 23:55 Glucagon (Glucagon For Inj 1 Mg Vial) 1 mg SQ UD PRN; Protocol PRN Reason: Hypoglycemia Protocol Stop: 11/24/21 23:55 Glucose (Glucose 10 Tabs/Tube) 4 - 8 tabs PO UD PRN; Protocol PRN Reason: Hypoglycemia Protocol Stop: 11/24/21 23:55 Glucose (Glucose 40% Gel 15 Gm Tube) 15 - 30 gm PO UD PRN; Protocol PRN Reason: Hypoglycemia Protocol Stop: 11/24/21 23:55 Heparin Sodium (Porcine) (Heparin Sod 5,000 Unit/0.5 Ml Vial) 5,000 units SQ Q8 [facility]IR Stop: 11/24/21 23:55 Last Admin: 10/26/21 06:37 Dose: 5,000 units Documented by: Lorazepam 2 mg/ Syringe 1.25 mls @ 2 mls/min IV Q12H PRN PRN Reason: Seizure activity Stop: 11/24/21 23:55 Levetiracetam 750 mg/ Sodium (Chloride) 107.5 mls @ 440 mls/hr IV BID [facility] Stop: 11/25/21 08:59 Last Infusion: 10/26/21 09:13 Dose: Infused Documented by: Sodium Chloride (Nss 1000ml) 1,000 mls @ 0 mls/hr IV .Q0M PRN PRN Reason: For Hemodialysis Use ONLY Stop: 10/26/21 16:39 Insulin Aspart (Insulin Aspart Per Unit) 0 units SC ACHS [facility] Stop: 11/24/21 23:55 Last Admin: 10/26/21 12:35 Dose: 3 units Documented by: Insulin Glargine (Insulin Glargine Solostar 100 Units/Ml 3 Ml Pen) 3 units SC BID [facility] Stop: 11/24/21 23:55 Last Admin: 10/26/21 08:37 Dose: Not Given Documented by: Miscellaneous (Carbohydrates For Hypoglycemia ) 15 - 30 gm PO UD PRN PRN Reason: Hypoglycemia Protocol Stop: 11/24/21 23:55 Miscellaneous (Remove Clonidine Patch) 1 ea N/A Q7D@0859 [facility] Stop: 11/26/21 08:58 Miscellaneous (Check Clonidine Patch Placement) 1 ea N/A QS [facility] Stop: 11/25/21 07:59 Last Admin: 10/26/21 08:48 Dose: 1 ea Documented by: Ondansetron HCl (Ondansetron Inj 2 Mg/Ml 2 Ml Vial) 4 mg IV Q6H PRN PRN Reason: Nausea Stop: 11/24/21 23:55
[2021-10-26] MEDS: HEPARIN SOD (PORCINE) 1000 UNIT/ML IV SCH (15:12)
[2021-10-26] MEDS: CARBOHYDRATES FOR HYPOGLYCEMIA PO PRN (16:39)
[2021-10-27] MEDS: CHECK CLONIDINE PATCH PLACEMENT SCH ×3 (01:06→16:36)
[2021-10-27] MEDS ORDERED: hydrALAZINE HCL 20 MG/ML VIAL IV STA (04:27)
[2021-10-27] MEDS: HEPARIN SOD 5,000 UNIT/0.5 ML VIAL SQ SCH ×3 (05:43→20:59)
[2021-10-27 05:53] LABS: Basophils # (auto) 0.02 K/uL (0-0.2); Basophils % (auto) 0.3 %; Eosinophils # (auto) 0.31 K/uL (0-0.5); Eosinophils % (auto) 5.2 %; Hematocrit (blood only) 25.4 % (42-52); Hemoglobin 8.2 g/dL (14.0-18.0); Immature Granulocytes # (auto) 0.01 K/uL (0.00-0.02); Immature Granulocytes % (auto) 0.2 %; Lymphocytes # (auto) 0.77 K/uL (1.2-3.4); Lymphocytes % (auto) 12.9 %; Mean Corpuscular Hemoglobin 29.7 pg (25-34); Mean Corpuscular Hgb Conc 32.3 g/dL (32-36); Mean Platelet Volume 11.2 fL (7.4-10.4); Monocytes # (auto) 0.73 K/uL (0.11-0.59); Monocytes % (auto) 12.3 %; Neutrophils # (auto) 4.11 K/uL (1.4-6.5); Neutrophils % (auto) 69.1 %; Platelet Count 138 K/uL (130-400); RDW Coefficient of Variation 14.1 % (11.5-14.5); RDW Standard Deviation 47.1 fL (36.4-46.3); Red Blood Count 2.76 M/uL (4.7-6.1); White Blood Count 5.95 K/uL (4.8-10.8)
[2021-10-27 06:16] LABS: BUN Creatinine Ratio 4.7 (10-20); Calcium 7.5 mg/dl (8.5-10.1); Creatinine Clr Calc Pharmacy 14.9 ml/min; Est GFR (African American) 12.8 ml/min
--- NOTE | 2021-10-27 06:58 | Electrocardiogram Report ---
Test Reason : Blood Pressure : / mmHG Vent. Rate : 107 BPM Atrial Rate : 107 BPM P-R Int : 186 ms QRS Dur : 102 ms QT Int : 358 ms P-R-T Axes : 068 -12 083 degrees QTc Int : 477 ms Sinus tachycardia Septal infarct (cited on or before 25-OCT-2021) Abnormal ECG When compared with ECG of 20-OCT-2021 12:36, No significant change Confirmed by Chris Duke ([id number]) on 10/27/2021 6:58:04 AM Referred By: REFERRED SELF Confirmed By:Chris Duke
[2021-10-27] MEDS: INSULIN ASPART PER UNIT SC SCH ×4 (07:50→21:00)
[2021-10-27] MEDS: levETIRAcetam 750 MG in 0.9 % SODIUM CHLORIDE 100 ML IV SCH ×2 (07:55→20:59)
[2021-10-27] MEDS: INSULIN GLARGINE SOLOSTAR 100 UNITS/ML 3 ML PEN SC SCH ×2 (09:00→21:00)
[2021-10-27] MEDS: CARBOHYDRATES FOR HYPOGLYCEMIA PO PRN (10:40)
--- NOTE | 2021-10-27 12:57 | Nephrology Progress Note ---
Date of Service October 27, 2021 Assessment & Plan (1) ESRD (end stage renal disease) on dialysis: Plan: Patient with ESRD on dialysis Saturday via permcath. His last dialysis was on Saturday. He missed dialysis on Saturday and was dialyzed yesterday for 3 hours and target UF of 2 L. Electrolytes are stable and no signs of volume overload. From renal standpoint patient can be discharged today. He is outpatient dialysis unit and is able to dialyze him tomorrow at 11:30 AM. Patient can resume his regular schedule of Saturday next week. (2) Seizure disorder: Plan: Patient is on Keppra renally dosed. Continue to monitor for breakthrough seizures. Neurology on the case Admission and Anticipated Discharge Date Admission Date: October 25, 2021 Subjective Seen for ESRD. He had dialysis yesterday. No shortness of breath and no seizures. Review of Systems Review of Systems: All other systems were reviewed and negative except as noted in HPI Physical Exam Physical Exam: General exam: Appears comfortable, no acute distress HEENT: Pupils are equal and reactive to light Neck: No JVD, neck is supple trachea is midline Respiratory system: Clear breath sounds bilaterally. Gastrointestinal: Abdomen is soft, non distended, non tender, bowel sounds are present CVS: Regular rate and rhythm. No murmurs, rubs or gallops Musculoskeletal: No joint or muscle tenderness Extremities: Non tender, no edema, peripheral pulses are present Neuro: Oriented, no tremors, no focal neurological deficits Skin: No rashes Results & Data ([facility]) Vital Signs (Past 12 Hours) Vital Signs Temp Pulse Pulse Pulse Resp BP BP 10/27/21 12:00 37.0 C 65 18 144/63 H 10/27/21 08:00 36.9 C 85 77 18 125/63 10/27/21 05:20 163/89 H 10/27/21 04:18 37.3 C 88 14 190/90 H Pulse Ox 10/27/21 12:00 97 10/27/21 08:00 98 10/27/21 05:20 10/27/21 04:18 100 Laboratory Results 10/27/21 05:33 10/27/21 05:33 WBC 5.95 RBC 2.76 L MCV 92.0 MCH 29.7 MCHC 32.3 RDW Std Deviation 47.1 H RDW Coeff of Rik 14.1 Plt Count 138 MPV 11.2 H
--- NOTE | 2021-10-27 14:20 | Hospitalist Progress Note ---
Date of Service October 27, 2021 Assessment & Plan (1) Seizure: Plan: This is a 56-year-old male who has significant past medical history of non-small cell lung cancer status post surgery, chemo, radiation with mets to bone, end- stage renal disease on hemodialysis, insulin-dependent T2DM, seizure disorder, gastroparesis status post gastric stimulator placement who presents to ED for altered mental status. Pt with witnessed seizure like activity in ER ~ 1 min, resolved and 2mg IV ativan given Patient recently hospitalized 10/20 and discharged today after receiving hemodialysis. He was admitted for intractable nausea vomiting in setting of gastroparesis, hypertensive urgency and cancer related pain. Post discharge was found today by family wandering outside and confused. EMS was summoned, BSG was normal and seizure-like activity witnessed in ED. Seizure disorder Tonic Clonic Seizure Seizure precautions, aspiration precautions Consult neurology-appreciate input and recommendation Received 500 mg IV Keppra in ED, will give additional 250 mg IV Keppra this evening Obtain Keppra and Lamictal levels-pending for now Obtain EEG-pending If mental status does not improve consider MRI-MRI has been ordered Continue IV Keppra 750 mg IV twice daily Ativan as needed for seizure-like activity Has been tolerating oral diet Obtain drug tox screen, alcohol level-noted and pending Place Peace cath, urine c & s ordered Peace has been taken out He remains a little drowsy but no more evidence of seizure since admission MRI could not be obtained due to gastric implant Discussed with the neuro and he can be discharged on same doses of antiseizure medications End-stage renal disease on hemodialysis Consult nephrology for dialysis needs Appreciate nephrology input and recommendation Next dialysis tomorrow but the patient can be discharged today 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 IDDM 2 lantus/novolog per protocol based on recent admission needs follow bsg a1c 9.1 10/21/21 We will continue his outpatient doses of insulin HTN continue clonidine patch resume oral meds when able Blood pressure remains on the lower side Metastatic lung cancer to bone s/p surg, xrt and chemo spoke to pts father who reports pt is dying and has less than 1 year to live follows oncology father wishes for no aggressive measures and confirms DNR/DNI DVT ppx: SQ Heparin Dispo: PCU DNR/DNI PCP Juan Lamb We will get PT and OT evaluation before discharge He cannot drive for 6 months and until being evaluated by the neurologist Admission and Anticipated Discharge Date Admission Date: October 25, 2021 Subjective 10/26/2021 Patient was seen and examined in telemetry unit Yes significant past medical history including and decisional disease on hemodialysis and seizure disorder He was discharged home yesterday and came back right away with a seizure activity Received additional dose of seizure medications He woke up this morning and wanted to leave the hospital Remained stable during examination 10/27/2021 The patient was seen and examined in telemetry unit He was noted to be hypoglycemic this morning with sweating and that improved with oral orange juice No more seizures Remains weak but wants to go home Review of Systems Review of Systems: All systems reviewed and are unremarkable except as noted below Physical Exam Physical Exam: Sitting on the bed without any acute distress but remains drowsy Constitutional: well developed, well nourished, + ill appearing and average body habitus Eyes: PERRL, conjunctivae normal, anicteric sclerae ENMT: external ear and nose normal, oropharynx normal Neck: trachea midline, no thyromegaly Respiratory: no respiratory distress Auscultation: + diminished lung sounds and + crackles (Minimal crackles at the bases) Cardiovascular: Rate/Rhythm: regular rate and regular rhythm; not tachycardic Heart Sounds: normal S1 and normal S2; no murmur Extremities: no edema Gastrointestinal (Abdomen): Inspection/Auscultation: normal bowel sounds; abdomen not distended Percussion/Palpation: abdomen soft; abdomen nontender Musculoskeletal: No acute arthritis in any joint Neurologic: Alert, awake and oriented x3. Generally weak but no focal neurodeficit Lymphatic: no cervical or axillary lymphadenopathy Results & Data Results & Data ([facility]) Vital Signs (Past 12 Hours) Vital Signs Temp Pulse Pulse Pulse Resp BP BP 10/27/21 12:00 37.0 C 65 18 144/63 H 10/27/21 08:00 36.9 C 85 77 18 125/63 10/27/21 05:20 163/89 H 10/27/21 04:18 37.3 C 88 14 190/90 H Pulse Ox 10/27/21 12:00 97 10/27/21 08:00 98 10/27/21 05:20 10/27/21 04:18 100 Laboratory Results Short CBC 10/27/21 Range/Units 05:33 WBC 5.95 (4.8-10.8) K/uL Hgb 8.2 L (14.0-18.0) g/dL Hct 25.4 L (42-52) % Plt Count 138 (130-400) K/uL BMP 10/27/21 05:33 Sodium 136 Potassium 4.0 Chloride 101 Carbon Dioxide 30 BUN 25 H Creatinine 5.35 H* D Glucose 140 H Calcium 7.5 L Medications Administered Current Inpatient Medications Clonidine HCl (Clonidine Hcl 0.2 Mg/24 Hr Transderm Sys) 0.2 patch TD Fr@0900 [facility] Stop: 11/26/21 08:59 Last Admin: 10/27/21 01:17 Dose: 0.2 patch Documented by: Dextrose (Dextrose 50% 50 Ml Syringe) 25 - 50 ml IV UD PRN; Protocol PRN Reason: Hypoglycemia Protocol Stop: 11/24/21 23:55 Last Admin: 10/27/21 10:53 Dose: 50 ml Documented by: Glucagon (Glucagon For Inj 1 Mg Vial) 1 mg SQ UD PRN; Protocol PRN Reason: Hypoglycemia Protocol Stop: 11/24/21 23:55 Glucose (Glucose 10 Tabs/Tube) 4 - 8 tabs PO UD PRN; Protocol PRN Reason: Hypoglycemia Protocol Stop: 11/24/21 23:55 Glucose (Glucose 40% Gel 15 Gm Tube) 15 - 30 gm PO UD PRN; Protocol PRN Reason: Hypoglycemia Protocol Stop: 11/24/21 23:55 Heparin Sodium (Porcine) (Heparin Sod 5,000 Unit/0.5 Ml Vial) 5,000 units SQ Q8 [facility] Stop: 11/24/21 23:55 Last Admin: 10/27/21 05:43 Dose: 5,000 units Documented by: Lorazepam 2 mg/ Syringe 1.25 mls @ 2 mls/min IV Q12H PRN PRN Reason: Seizure activity Stop: 11/24/21 23:55 Levetiracetam 750 mg/ Sodium (Chloride) 107.5 mls @ 440 mls/hr IV BID [facility] Stop: 11/25/21 08:59 Last Infusion: 10/27/21 09:00 Dose: Infused Documented by: Insulin Aspart (Insulin Aspart Per Unit) 0 units SC ACHS [facility] Stop: 11/24/21 23:55 Last Admin: 10/27/21 11:12 Dose: Not Given Documented by: Insulin Glargine (Insulin Glargine Solostar 100 Units/Ml 3 Ml Pen) 3 units SC BID [facility] Stop: 11/24/21 23:55 Last Admin: 10/27/21 09:00 Dose: 3 units Documented by: Gilberto (Carbohydrates For Hypoglycemia ) 15 - 30 gm PO UD PRN PRN Reason: Hypoglycemia Protocol Stop: 11/24/21 23:55 Last Admin: 10/27/21 10:40 Dose: 30 gm Documented by: Gilberto (Remove Clonidine Patch) 1 ea N/A Q7D@0859 [facility] Stop: 11/26/21 08:58 Last Admin: 10/27/21 07:54 Dose: Not Given Documented by: Gilberto (Check Clonidine Patch Placement) 1 ea N/A QS [facility] Stop: 11/25/21 07:59 Last Admin: 10/27/21 07:54 Dose: 1 ea Documented by: Ondansetron HCl (Ondansetron Inj 2 Mg/Ml 2 Ml Vial) 4 mg IV Q6H PRN PRN Reason: Nausea Stop: 11/24/21 23:55
--- NOTE | 2021-10-27 20:19 | Communication Note ---
Date of Service: October 27, 2021 Made aware by dialysis nurse of outpatient dialysis schedule for patient tomorrow morning 11:15AM [facility]. AM provider requested to facilitate early discharge of patient. Will relay to AM provider.
[2021-10-28] MEDS: CHECK CLONIDINE PATCH PLACEMENT SCH ×3 (00:30→17:23)
[2021-10-28] MEDS: HEPARIN SOD 5,000 UNIT/0.5 ML VIAL SQ SCH ×3 (05:48→21:38)
[2021-10-28] MEDS: INSULIN ASPART PER UNIT SC SCH ×4 (08:00→21:37)
[2021-10-28] MEDS: INSULIN GLARGINE SOLOSTAR 100 UNITS/ML 3 ML PEN SC SCH ×2 (08:01→21:38)
[2021-10-28] MEDS: levETIRAcetam 750 MG in 0.9 % SODIUM CHLORIDE 100 ML IV SCH ×2 (08:06→21:37)
[2021-10-28] MEDS ORDERED: HEPARIN SOD (PORCINE) 1000 UNIT/ML IV ONE (08:25)
[2021-10-28] MEDS: oxyCODONE HCL IR 5 MG TAB (IMMEDIATE RELEASE) PO STA ×2 (10:22→14:50)
[2021-10-28] MEDS: HEPARIN SOD (PORCINE) 1000 UNIT/ML IV SCH ×2 (12:09→12:10)
--- NOTE | 2021-10-28 13:25 | Hospitalist Progress Note ---
Date of Service October 28, 2021 Assessment & Plan (1) Seizure: Plan: This is a 56-year-old male who has significant past medical history of non-small cell lung cancer status post surgery, chemo, radiation with mets to bone, end- stage renal disease on hemodialysis, insulin-dependent T2DM, seizure disorder, gastroparesis status post gastric stimulator placement who presents to ED for altered mental status. Pt with witnessed seizure like activity in ER ~ 1 min, resolved and 2mg IV ativan given Patient recently hospitalized 10/20 and discharged today after receiving hemodialysis. He was admitted for intractable nausea vomiting in setting of gastroparesis, hypertensive urgency and cancer related pain. Post discharge was found today by family wandering outside and confused. EMS was summoned, BSG was normal and seizure-like activity witnessed in ED. Seizure disorder Tonic Clonic Seizure Seizure precautions, aspiration precautions Consult neurology-appreciate input and recommendation Received 500 mg IV Keppra in ED, will give additional 250 mg IV Keppra this evening Obtain Keppra and Lamictal levels-pending for now Obtain EEG-pending If mental status does not improve consider MRI-MRI has been ordered Continue IV Keppra 750 mg IV twice daily Ativan as needed for seizure-like activity Has been tolerating oral diet Obtain drug tox screen, alcohol level-noted and pending Place Peace cath, urine c & s ordered Peace has been taken out He remains a little drowsy but no more evidence of seizure since admission MRI could not be obtained due to gastric implant Discussed with the neuro and he can be discharged on same doses of antiseizure medications No more seizures but the physical therapist recommended that he should go to rehab Will get reevaluation by the therapist and if recommended home, he will be discharged home this afternoon End-stage renal disease on hemodialysis Consult nephrology for dialysis needs Appreciate nephrology input and recommendation Next dialysis tomorrow but the patient can be discharged today as per clinical trials assistant Will have dialysis today IDDM 2 lantus/novolog per protocol based on recent admission needs follow bsg a1c 9.1 10/21/21 We will continue his outpatient doses of insulin HTN continue clonidine patch resume oral meds when able Blood pressure remains on the lower side Metastatic lung cancer to bone s/p surg, xrt and chemo spoke to pts father who reports pt is dying and has less than 1 year to live follows oncology father wishes for no aggressive measures and confirms DNR/DNI DVT ppx: SQ Heparin Dispo: PCU DNR/DNI PCP Juan Lamb We will get PT and OT evaluation before discharge He cannot drive for 6 months and until being evaluated by the neurologist Document papers signed Admission and Anticipated Discharge Date Admission Date: October 25, 2021 Subjective 10/26/2021 Patient was seen and examined in telemetry unit Yes significant past medical history including and decisional disease on hemodialysis and seizure disorder He was discharged home yesterday and came back right away with a seizure activity Received additional dose of seizure medications He woke up this morning and wanted to leave the hospital Remained stable during examination 10/27/2021 The patient was seen and examined in telemetry unit He was noted to be hypoglycemic this morning with sweating and that improved with oral orange juice No more seizures Remains weak but wants to go home 10/28/2021 The patient was seen and examined in telemetry unit He wants to go home but the therapist recommended that he should go to rehab Will have dialysis today and if he is okay with the therapist he will be discharged home this afternoon Complains of pain at the back and which seems to be chronic Review of Systems Review of Systems: All systems reviewed and are unremarkable except as noted below Physical Exam Physical Exam: Sitting on the bed without any acute distress but remains drowsy Constitutional: well developed, well nourished, + ill appearing and average body habitus Eyes: PERRL, conjunctivae normal, anicteric sclerae ENMT: external ear and nose normal, oropharynx normal Neck: trachea midline, no thyromegaly Respiratory: no respiratory distress Auscultation: + diminished lung sounds and + crackles (Minimal crackles at the bases) Cardiovascular: Rate/Rhythm: regular rate and regular rhythm; not tachycardic Heart Sounds: normal S1 and normal S2; no murmur Extremities: no edema Gastrointestinal (Abdomen): Inspection/Auscultation: normal bowel sounds; abdomen not distended Percussion/Palpation: abdomen soft; abdomen nontender Musculoskeletal: No acute arthritis in any joint Neurologic: normal touch/pain/proprioception Lymphatic: no cervical or axillary lymphadenopathy Results & Data Results & Data ([facility]) Vital Signs (Past 12 Hours) Vital Signs Temp Pulse Pulse Pulse Resp BP BP 10/28/21 13:16 37.1 C 90 10/28/21 13:00 86 169/102 H 10/28/21 12:40 85 189/111 H 10/28/21 12:20 83 174/96 H 10/28/21 12:00 83 177/97 H 10/28/21 11:40 80 165/100 H 10/28/21 11:20 79 153/87 H 10/28/21 11:00 80 149/94 H 10/28/21 10:40 80 175/103 H 10/28/21 10:20 80 177/104 H 10/28/21 10:03 83 193/111 H 10/28/21 09:57 36.7 C 86 10/28/21 08:00 36.8 C 74 16 164/78 H 10/28/21 07:00 82 10/28/21 03:05 36.8 C 86 16 BP Pulse Ox 10/28/21 13:16 190/104 H 10/28/21 13:00 10/28/21 12:40 10/28/21 12:20 10/28/21 12:00 10/28/21 11:40 10/28/21 11:20 10/28/21 11:00 10/28/21 10:40 10/28/21 10:20 10/28/21 10:03 10/28/21 09:57 10/28/21 08:00 93 10/28/21 07:00 10/28/21 03:05 194/109 H 98 Medications Administered Current Inpatient Medications Clonidine HCl (Clonidine Hcl 0.2 Mg/24 Hr Transderm Sys) 0.2 patch TD Fr@0900 [facility] Stop: 11/26/21 08:59 Last Admin: 10/27/21 01:17 Dose: 0.2 patch Documented by: Dextrose (Dextrose 50% 50 Ml Syringe) 25 - 50 ml IV UD PRN; Protocol PRN Reason: Hypoglycemia Protocol Stop: 11/24/21 23:55 Last Admin: 10/27/21 10:53 Dose: 50 ml Documented by: Glucagon (Glucagon For Inj 1 Mg Vial) 1 mg SQ UD PRN; Protocol PRN Reason: Hypoglycemia Protocol Stop: 11/24/21 23:55 Glucose (Glucose 10 Tabs/Tube) 4 - 8 tabs PO UD PRN; Protocol PRN Reason: Hypoglycemia Protocol Stop: 11/24/21 23:55 Glucose (Glucose 40% Gel 15 Gm Tube) 15 - 30 gm PO UD PRN; Protocol PRN Reason: Hypoglycemia Protocol Stop: 11/24/21 23:55 Heparin Sodium (Porcine) (Heparin Sod 5,000 Unit/0.5 Ml Vial) 5,000 units SQ Q8 [facility] Stop: 11/24/21 23:55 Last Admin: 10/28/21 05:48 Dose: 5,000 units Documented by: Lorazepam 2 mg/ Syringe 1.25 mls @ 2 mls/min IV Q12H PRN PRN Reason: Seizure activity Stop: 11/24/21 23:55 Levetiracetam 750 mg/ Sodium (Chloride) 107.5 mls @ 440 mls/hr IV BID [facility] Stop: 11/25/21 08:59 Last Infusion: 10/28/21 09:14 Dose: Infused Documented by: Insulin Aspart (Insulin Aspart Per Unit) 0 units SC ACHS [facility] Stop: 11/24/21 23:55 Last Admin: 10/28/21 13:03 Dose: Not Given Documented by: Insulin Glargine (Insulin Glargine Solostar 100 Units/Ml 3 Ml Pen) 3 units SC BID [facility] Stop: 11/24/21 23:55 Last Admin: 10/28/21 08:01 Dose: 3 units Documented by: Miscellaneous (Carbohydrates For Hypoglycemia ) 15 - 30 gm PO UD PRN PRN Reason: Hypoglycemia Protocol Stop: 11/24/21 23:55 Last Admin: 10/27/21 10:40 Dose: 30 gm Documented by: Miscellaneous (Remove Clonidine Patch) 1 ea N/A Q7D@0859 [facility] Stop: 11/26/21 08:58 Last Admin: 10/27/21 07:54 Dose: Not Given Documented by: Miscellaneous (Check Clonidine Patch Placement) 1 ea N/A QS [facility] Stop: 11/25/21 07:59 Last Admin: 10/28/21 08:01 Dose: 1 ea Documented by: Ondansetron HCl (Ondansetron Inj 2 Mg/Ml 2 Ml Vial) 4 mg IV Q6H PRN PRN Reason: Nausea Stop: 11/24/21 23:55
[2021-10-28 14:17] LABS: Codeine Urine NEGATIVE ng/mL (<50); Hydrocodone Urine NEGATIVE ng/mL (<50); Hydromor Urine NEGATIVE ng/mL (<50); Morphine Urine 6090 ng/mL (<50); Norhydrocodone Conf Ur NEGATIVE ng/mL (<50); Noroxycodone Urine NEGATIVE ng/mL (<50); Oxycodone Urine NEGATIVE ng/mL (<50); Oxymorph Urine NEGATIVE ng/mL (<50)
--- NOTE | 2021-10-28 15:44 | Nephrology Progress Note ---
Date of Service October 28, 2021 Assessment & Plan (1) ESRD (end stage renal disease) on dialysis: Plan: Patient with ESRD on dialysis Saturday via permcath. His last dialysis was on Saturday. He missed dialysis on Saturday and was dialyzed and again today for 3 hours and target UF of 2 L. Electrolytes are stable and no signs of volume overload. Next HD will be Saturday. (2) Seizure disorder: Plan: Patient is on Keppra renally dosed. Continue to monitor for breakthrough seizures. Neurology on the case Admission and Anticipated Discharge Date Admission Date: October 25, 2021 Subjective Seen for ESRD. Patient was seen and examined while on dialysis. No SOB. Review of Systems Review of Systems: All other systems were reviewed and negative except as not ed in HPI Physical Exam Physical Exam: General exam: Appears comfortable, no acute distress HEENT: Pupils are equal and reactive to light Neck: No JVD, neck is supple trachea is midline Respiratory system: Clear breath sounds bilaterally. Gastrointestinal: Abdomen is soft, non distended, non tender, bowel sounds are present CVS: Regular rate and rhythm. No murmurs, rubs or gallops Musculoskeletal: No joint or muscle tenderness Extremities: Non tender, no edema, peripheral pulses are present Neuro: Oriented, no tremors, no focal neurological deficits Skin: No rashes Results & Data ([facility]) Vital Signs (Past 12 Hours) Vital Signs Temp Pulse Pulse Resp BP BP BP 10/28/21 13:16 37.1 C 90 190/104 H 10/28/21 13:00 86 169/102 H 10/28/21 12:40 85 189/111 H 10/28/21 12:20 83 174/96 H 10/28/21 12:00 83 177/97 H 10/28/21 11:40 80 165/100 H 10/28/21 11:20 79 153/87 H 10/28/21 11:00 80 149/94 H 10/28/21 10:40 80 175/103 H 10/28/21 10:20 80 177/104 H 10/28/21 10:03 83 193/111 H 10/28/21 09:57 36.7 C 86 10/28/21 08:00 36.8 C 74 16 164/78 H 10/28/21 07:00 82 Pulse Ox 10/28/21 13:16 10/28/21 13:00 10/28/21 12:40 10/28/21 12:20 10/28/21 12:00 10/28/21 11:40 10/28/21 11:20 10/28/21 11:00 10/28/21 10:40 10/28/21 10:20 10/28/21 10:03 10/28/21 09:57 10/28/21 08:00 93 10/28/21 07:00 Laboratory Results 10/27/21 05:33
[2021-10-29] MEDS: CHECK CLONIDINE PATCH PLACEMENT SCH ×2 (00:23→08:48)
[2021-10-29] MEDS: HEPARIN SOD 5,000 UNIT/0.5 ML VIAL SQ SCH (06:37)
[2021-10-29] MEDS: INSULIN ASPART PER UNIT SC SCH ×2 (08:24→11:54)
[2021-10-29] MEDS: INSULIN GLARGINE SOLOSTAR 100 UNITS/ML 3 ML PEN SC SCH (08:48)
[2021-10-29] MEDS: levETIRAcetam 750 MG in 0.9 % SODIUM CHLORIDE 100 ML IV SCH (08:48)
--- NOTE | 2021-10-29 11:04 | Hospitalist Progress Note ---
Date of Service October 29, 2021 Assessment & Plan (1) Seizure: Plan: This is a 56-year-old male who has significant past medical history of non-small cell lung cancer status post surgery, chemo, radiation with mets to bone, end- stage renal disease on hemodialysis, insulin-dependent T2DM, seizure disorder, gastroparesis status post gastric stimulator placement who presents to ED for altered mental status. Pt with witnessed seizure like activity in ER ~ 1 min, resolved and 2mg IV ativan given Patient recently hospitalized 10/20 and discharged today after receiving hemodialysis. He was admitted for intractable nausea vomiting in setting of gastroparesis, hypertensive urgency and cancer related pain. Post discharge was found today by family wandering outside and confused. EMS was summoned, BSG was normal and seizure-like activity witnessed in ED. Seizure disorder Tonic Clonic Seizure Seizure precautions, aspiration precautions Consult neurology-appreciate input and recommendation Received 500 mg IV Keppra in ED, will give additional 250 mg IV Keppra this evening Obtain Keppra and Lamictal levels-pending for now Obtain EEG-pending If mental status does not improve consider MRI-MRI has been ordered Continue IV Keppra 750 mg IV twice daily Ativan as needed for seizure-like activity Has been tolerating oral diet Obtain drug tox screen, alcohol level-noted and pending Place Peace cath, urine c & s ordered Peace has been taken out He remains a little drowsy but no more evidence of seizure since admission MRI could not be obtained due to gastric implant Discussed with the neuro and he can be discharged on same doses of antiseizure medications No more seizures but the physical therapist recommended that he should go to rehab PT reevaluated him this morning and recommended that he can go home He was strongly advised not to drive for next 6 months He will have an outpatient appointment with neurologist down the line End-stage renal disease on hemodialysis Consult nephrology for dialysis needs Appreciate nephrology input and recommendation Next dialysis tomorrow but the patient can be discharged today as per core driller Discussed with the core driller and Next dialysis will be on Saturday as an outpatient IDDM 2 lantus/novolog per protocol based on recent admission needs follow bsg a1c 9.1 10/21/21 We will continue his outpatient doses of insulin HTN continue clonidine patch resume oral meds when able Blood pressure remains on the lower side Metastatic lung cancer to bone s/p surg, xrt and chemo spoke to pts father who reports pt is dying and has less than 1 year to live follows oncology father wishes for no aggressive measures and confirms DNR/DNI DVT ppx: SQ Heparin Dispo: PCU DNR/DNI PCP Juan Lamb We will get PT and OT evaluation before discharge He cannot drive for 6 months and until being evaluated by the neurologist Document papers signed Will discharge home this afternoon Admission and Anticipated Discharge Date Admission Date: October 25, 2021 Subjective 10/26/2021 Patient was seen and examined in telemetry unit Yes significant past medical history including and decisional disease on hemodialysis and seizure disorder He was discharged home yesterday and came back right away with a seizure activity Received additional dose of seizure medications He woke up this morning and wanted to leave the hospital Remained stable during examination 10/27/2021 The patient was seen and examined in telemetry unit He was noted to be hypoglycemic this morning with sweating and that improved with oral orange juice No more seizures Remains weak but wants to go home 10/28/2021 The patient was seen and examined in telemetry unit He wants to go home but the therapist recommended that he should go to rehab Will have dialysis today and if he is okay with the therapist he will be discharged home this afternoon Complains of pain at the back and which seems to be chronic 10/29/2021 The patient was seen and examined in telemetry unit He remains stable and did not have any more seizures He has had physical therapy this morning and recommended home He denies any other significant symptoms Review of Systems Review of Systems: All systems reviewed and are unremarkable except as noted below Physical Exam Physical Exam: Sitting on the bed without any acute distress but remains drowsy Constitutional: well developed, well nourished, + ill appearing and average body habitus Eyes: PERRL, conjunctivae normal, anicteric sclerae ENMT: external ear and nose normal, oropharynx normal Neck: trachea midline, no thyromegaly Respiratory: no respiratory distress Auscultation: + diminished lung sounds and + crackles (Minimal crackles at the bases) Cardiovascular: Rate/Rhythm: regular rate and regular rhythm; not tachycardic Heart Sounds: normal S1 and normal S2; no murmur Extremities: no edema Gastrointestinal (Abdomen): Inspection/Auscultation: normal bowel sounds; abdomen not distended Percussion/Palpation: abdomen soft; abdomen nontender Musculoskeletal: No acute arthritis in any joint Neurologic: normal touch/pain/proprioception Lymphatic: no cervical or axillary lymphadenopathy Results & Data Results & Data ([facility]) Vital Signs (Past 12 Hours) Vital Signs Temp Pulse Resp BP Pulse Ox 10/29/21 09:00 36.7 C 72 18 166/89 H 96 10/29/21 08:00 37 C 10/29/21 03:00 36.6 C 87 20 172/93 H 98 Medications Administered Current Inpatient Medications Clonidine HCl (Clonidine Hcl 0.2 Mg/24 Hr Transderm Sys) 0.2 patch TD Fr@0900 DAMIR Stop: 11/26/21 08:59 Last Admin: 10/27/21 01:17 Dose: 0.2 patch Documented by: Dextrose (Dextrose 50% 50 Ml Syringe) 25 - 50 ml IV UD PRN; Protocol PRN Reason: Hypoglycemia Protocol Stop: 11/24/21 23:55 Last Admin: 10/27/21 10:53 Dose: 50 ml Documented by: Glucagon (Glucagon For Inj 1 Mg Vial) 1 mg SQ UD PRN; Protocol PRN Reason: Hypoglycemia Protocol Stop: 11/24/21 23:55 Glucose (Glucose 10 Tabs/Tube) 4 - 8 tabs PO UD PRN; Protocol PRN Reason: Hypoglycemia Protocol Stop: 11/24/21 23:55 Glucose (Glucose 40% Gel 15 Gm Tube) 15 - 30 gm PO UD PRN; Protocol PRN Reason: Hypoglycemia Protocol Stop: 11/24/21 23:55 Heparin Sodium (Porcine) (Heparin Sod 5,000 Unit/0.5 Ml Vial) 5,000 units SQ Q8 DAMIR Stop: 11/24/21 23:55 Last Admin: 10/29/21 06:37 Dose: 5,000 units Documented by: Lorazepam 2 mg/ Syringe 1.25 mls @ 2 mls/min IV Q12H PRN PRN Reason: Seizure activity Stop: 11/24/21 23:55 Levetiracetam 750 mg/ Sodium (Chloride) 107.5 mls @ 440 mls/hr IV BID DAMIR Stop: 11/25/21 08:59 Last Infusion: 10/29/21 09:22 Dose: Infused Documented by: Insulin Aspart (Insulin Aspart Per Unit) 0 units SC ACHS DAMIR Stop: 11/24/21 23:55 Last Admin: 10/29/21 08:24 Dose: Not Given Documented by: Insulin Glargine (Insulin Glargine Solostar 100 Units/Ml 3 Ml Pen) 3 units SC BID [facility] Stop: 11/24/21 23:55 Last Admin: 10/29/21 08:48 Dose: Not Given Documented by: Miscellaneous (Carbohydrates For Hypoglycemia ) 15 - 30 gm PO UD PRN PRN Reason: Hypoglycemia Protocol Stop: 11/24/21 23:55 Last Admin: 10/27/21 10:40 Dose: 30 gm Documented by: Carmencellcorinne (Remove Clonidine Patch) 1 ea N/A [id number] [facility] Stop: 11/26/21 08:58 Last Admin: 10/27/21 07:54 Dose: Not Given Documented by: Gilberto (Check Clonidine Patch Placement) 1 ea N/A QS [facility] Stop: 11/25/21 07:59 Last Admin: 10/29/21 08:48 Dose: 1 ea Documented by: Ondansetron HCl (Ondansetron Inj 2 Mg/Ml 2 Ml Vial) 4 mg IV Q6H PRN PRN Reason: Nausea Stop: 11/24/21 23:55
[2021-10-30 03:27] LABS: Lamictal(Lamotrigine) <0.5 mcg/mL (4.0-18.0)
--- NOTE | 2021-11-06 08:19 | Discharge Summary ---
Date of Service October 29, 2021 Admission HPI Per Admitting Provider This is a 56-year-old male who has significant past medical history of non-small cell lung cancer status post surgery, chemo, radiation with mets to bone, end- stage renal disease on hemodialysis, insulin-dependent T2DM, seizure disorder, gastroparesis status post gastric stimulator placement who presents to ED for altered mental status. Of significance patient was recently hospitalized 10/20 and discharged today 10/25/2021. He was admitted for intractable nausea and vomiting as result of his gastroparesis. He was treated with EmEnd which improved his symptoms. He also had hypertensive urgency likely due to unable to take medications orally due to vomiting. His blood pressure medications were resumed at discharge. He does have end-stage renal disease and did complete hemodialysis while inpatient. His last hemodialysis was today prior to discharge. Pain management was on board in regards to patient's cancer-related pain. His fentanyl patch was increased to 75 mcg and he was receiving oxycodone every 4 hours as needed at 10 mg. After patient was discharged today he was found by family wandering outside. He was confused. EMS was summoned and found him to be confused but awake and with it. He alerted EMS that he needed an IV in his neck due to poor peripheral vasculature. He then became agitated and confused. He arrived to ED he did have witnessed approximately 1 minute of tonic-clonic seizure-like activity. He received 2 mg of IV Ativan with seizure cessation as well as 500 mg of IV Keppra. He also received a total of 1 L of IV fluid. He was significantly hypertensive in ER but this improved without treatment. History and ROS unable to obtain due to patient currently sedated and postictal. Admission Exam Per Admitting Provider Physical Exam: Constitutional: WD/WN, vitals as above, NAD, lying in bed, unarousable to verbal or tactile stimulation, sleeping Head: Normocephalic, Atraumatic Eyes: PERRL but sluggish, conjunctivae normal, anicteric sclerae ENMT: external ear and nose normal, oropharynx normal dry membranes Neck: trachea midline, no thyromegaly normal visual inspection Respiratory: On OxyMax,normal respiratory effort, lungs clear to auscultation, no wheeze, rales, rhonchi. Normal insp/exp effort, no accessory muscle use Cardiovascular: RRR, no murmur, no edema Vessels: no JVD or carotid bruit Chest: normal inspection of chest Abdomen: normal bowel sounds, soft, nontender, no hepatosplenomegaly Musculoskeletal: no cyanosis or clubbing, unable to assess strength Skin: no rashes, warm and dry normal turgor Neurologic: PERRL, unable to assess due to unresponsiveness Psychiatric: Not alert, unable to assess : deferred Principal Diagnosis Seizure, end-stage renal disease on hemodialysis, type 2 diabetes on insulin, hypertension, metastatic lung cancer to bone Discharge Exam Sitting on the bed without any acute distress but remains drowsy Constitutional well developed, well nourished, + ill appearing and average body habitus Eyes PERRL, conjunctivae normal, anicteric sclerae ENMT external ear and nose normal, oropharynx normal Neck trachea midline, no thyromegaly Respiratory no respiratory distress Auscultation: + diminished lung sounds and + crackles (Minimal crackles at the bases) Cardiovascular Rate/Rhythm: regular rate and regular rhythm; not tachycardic Heart Sounds: normal S1 and normal S2; no murmur Extremities: no edema Gastrointestinal (Abdomen) Inspection/Auscultation: normal bowel sounds; abdomen not distended Percussion/Palpation: abdomen soft; abdomen nontender Neurologic normal touch/pain/proprioception Lymphatic no cervical or axillary lymphadenopathy Discharge Data Allergies Allergy/AdvReac Type Severity Reaction Status Date / Time bee venom protein (honey bee) Allergy Severe Swelling Verified 10/25/21 17:13 at site, SOB cat dander Allergy Unknown Unknown Verified 10/25/21 17:13 Penicillins Allergy Unknown Amoxicillin- Verified 10/25/21 17:13 "since " Consultations 10/25/21 19:03 ED Decision to Admit Stat 10/25/21 23:56 Consult Nephrology Routine Consult Neurology Routine Ordered Studies 10/25/21 16:49 CT head/brain wo con Stat Hospital Course (1) Seizure: This is a 56-year-old male who has significant past medical history of non-small cell lung cancer status post surgery, chemo, radiation with mets to bone, end- stage renal disease on hemodialysis, insulin-dependent T2DM, seizure disorder, gastroparesis status post gastric stimulator placement who presents to ED for altered mental status. Pt with witnessed seizure like activity in ER ~ 1 min, resolved and 2mg IV ativan given Patient recently hospitalized 10/20 and discharged today sick/22 after receiving hemodialysis. He was admitted for intractable nausea vomiting in setting of gastroparesis, hypertensive urgency and cancer related pain. Post discharge was found today by family wandering outside and confused. EMS was summoned, BSG was normal and seizure-like activity witnessed in ED. Seizure disorder Tonic Clonic Seizure Seizure precautions, aspiration precautions Consult neurology-appreciate input and recommendation Received 500 mg IV Keppra in ED, will give additional 250 mg IV Keppra this evening Obtain Keppra and Lamictal levels-pending for now Obtain EEG-pending If mental status does not improve consider MRI-MRI has been ordered Continue IV Keppra 750 mg IV twice daily Ativan as needed for seizure-like activity Has been tolerating oral diet Obtain drug tox screen, alcohol level-noted and pending Place Peace cath, urine c & s ordered Peace has been taken out He remains a little drowsy but no more evidence of seizure since admission MRI could not be obtained due to gastric implant Discussed with the neuro and he can be discharged on same doses of antiseizure medications No more seizures but the physical therapist recommended that he should go to rehab PT reevaluated him this morning and recommended that he can go home He was strongly advised not to drive for next 6 months He will have an outpatient appointment with neurologist down the line End-stage renal disease on hemodialysis Consult nephrology for dialysis needs Appreciate nephrology input and recommendation Next dialysis tomorrow but the patient can be discharged today as per nephrologi st Discussed with the school treasurer and Next dialysis will be on Saturday as an outpatient IDDM 2 lantus/novolog per protocol based on recent admission needs follow bsg a1c 9.1 10/21/21 We will continue his outpatient doses of insulin HTN continue clonidine patch resume oral meds when able Blood pressure remains on the lower side Metastatic lung cancer to bone s/p surg, xrt and chemo spoke to pts father who reports pt is dying and has less than 1 year to live follows oncology father wishes for no aggressive measures and confirms DNR/DNI DVT ppx: SQ Heparin Dispo: PCU DNR/DNI PCP Juan Lamb We will get PT and OT evaluation before discharge He cannot drive for 6 months and until being evaluated by the neurologist Document papers signed Will discharge home this afternoon Total Time Total Time Spent Total Time Spent (In Minutes): 35 minutes Discharge Plan Discharge Items Patient Disposition: Home - Self-Care Reason For Visit: SEIZURE Discharge Diagnosis: Seizure, end-stage renal disease on hemodialysis, type 2 diabetes on insulin, hypertension, metastatic lung cancer to bone Condition on Discharge: Fair Activity: Resume your previous activity Non-emergency contact: Primary Care Provider Call non-emergency contact if: you have any medication questions and your symptoms worsen Follow-up/Referrals: Juan Lamb MD [Primary Care Provider] - Diet: Carb Consistent or DM2 and Dialysis Renal Fluids: 1500ml (6 cups) Addtl Attending Provider Instructions: Please take precautions to avoid falls Take your medications as advised Do not drive for at least 6 months and until being evaluated by the neurologist as an outpatient Keep appointment with your healthcare providers and dialysis No change in your current medications Pending Studies at Discharge: Yes Studies:: Anticonvulsant level Stand-Alone Forms: My [employer], Smoking Cessation Medications and DC Order Prescriptions: Continued insulin lispro [Humalog U-100 Insulin] 100 unit/mL solution 1 sliding scale dose subcut USEASDIRECTD RF: 0 gabapentin 400 mg capsule 400 mg PO TID RF: 0 (DME) FreeStyle Amparo 14 Day Sensor Kit See Rx Instructions .Route RF: 0 Lantus Solostar U-100 Insulin 100 unit/mL (3 mL) insulin pen 7 unit subcut QPM RF: 0 (DME) blood sugar diagnostic Strip See Rx Instructions .Route RF: 0 clonidine 0.2 mg/24 hr patch weekly 0.2 mg transdermal FR RF: 0 levetiracetam [Keppra] 750 mg tablet 750 mg PO BID Qty: 30 RF: 0 glucagon 1 mg recon soln 1 mg IM ONCE PRN (Reason: Hypoglycemia) Qty: 1 RF: 0 albuterol sulfate [Ventolin HFA] 90 mcg/actuation Hfa Aerosol Inhaler 2 puff INHALATION Q4H PRN (Reason: Shortness Of Breath) Qty: 1 RF: 0 oxycodone 10 mg tablet 10 mg PO Q4H PRN (Reason: Severe Pain (Scale Score 7-10)) 7 Days Qty: 14 RF: 0 omeprazole 40 mg capsule,delayed release(DR/EC) 40 mg PO QAM RF: 0 lamotrigine [Lamictal] 25 mg Tablet 37.5 mg PO QPM RF: 0 lisinopril 40 mg Tablet 20 mg PO QAM RF: 0 fluticasone propion-salmeterol 250-50 mcg/dose Blister With Device 1 inh INHALATION DAILY RF: 0 metoclopramide HCl 10 mg tablet 10 mg PO TID RF: 0 rosuvastatin 20 mg tablet 20 mg PO DAILY RF: 0 Probiotic 1 tab PO DAILY RF: 0 fentanyl 75 mcg/hr Patch 72 Hour 75 mcg transdermal Q72H Qty: 3 RF: 0 ondansetron HCl 4 mg Tablet 4 mg PO Q8H PRN (Reason: NAUSEA/VOMITING) RF: 0 Discharge Orders: Discharge Order (Routine); Ordered 10/29/21 Ordered By: Stephon Vernon Admission Data Admit Date/Time: 10/25/21 19:16 Attending Provider: Stephon Vernon Admit Provider: Jose Wells Primary Care Provider: Juan Lamb Other Providers: Jose Wells ; Dylan Jo ; Rodo Wright Other Interventions: Discharge Summary Assessment (RN) Last Done: 10/29/21 11:48
== END 2021-10-29 13:29 | disposition home or self-care (01) | DRG 100 ==
LOC: ED 16:33 → SUATTDRO 19:16 → 2E 19:16

== ENCOUNTER 2021-12-18 05:30 | Observation (INO) ==
[2021-12-18] MEDS ORDERED: SODIUM CHLORIDE 0.9% 1000ML 1,000 ML IV SCH (05:45)
[2021-12-18] MEDS ORDERED: FOSAPREPITANT DIMEGLUMINE 115 MG in 0.9 % SODIUM CHLORIDE 111.1667 ML IV ONE (05:52)
--- NOTE | 2021-12-18 06:01 | Emergency Department Note ---
History of Present Illness General Chief complaint: Vomiting Stated complaint: CHEST PAIN,SOB,NAUSEA,VOMITING Time Seen by Provider: 12/18/21 05:35 Source: patient Mode of arrival: ambulatory Limitations: no limitations History of Present Illness Provider complaint: Epigastric pain, nausea and vomiting Location: abdomen Radiation: back Severity: moderate Maximum Pain Intensity: 7 Quality: + constant This is a 56-year-old male presents emergency department with worsening epigastric pain and worsening nausea and vomiting. Patient does have significant past medical history including gastroparesis and gastric stimulator. He states he does vomit daily due to his GI history. He states he does have Reglan as well as as needed Zofran at home for his symptoms. He states approximately a month ago he fell on the end of his cane and struck him in the epigastric region and he has had increased epigastric pain since then. He states he was checked out at that time and told he did not have any significant injuries or abnormalities. He states he has had persistent epigastric pain since although tonight it worsened with persistent vomiting. Patient denies any hematemesis. No change in stools. He denies fevers although states he has had chills and sweating with the vomiting. No known sick contacts, no recent change in medications. Patient states he was also previously hypoglycemic with a glucose reading of 44 at home. He believes this is from the persistent vomiting. He states he tried his usual nausea meds at home without any improvement. Pt seen during a time of high acuity and national emergency pandemic while wearing PPE. Home Medications Medication Instructions Recorded Confirmed Type blood sugar diagnostic 04/26/21 12/18/21 History flash glucose sensor (FreeStyle 04/26/21 12/18/21 History Amparo 14 Day Sensor kit) gabapentin 400 mg capsule 400 mg PO TID 04/26/21 12/18/21 History insulin glargine 100 unit/mL (3 7 unit subcut QPM 04/26/21 12/18/21 History mL) subcutaneous pen (Lantus Solostar U-100 Insulin) clonidine 0.2 mg/24 hr weekly 0.2 mg transdermal FR 06/30/21 12/18/21 History transdermal patch albuterol sulfate 90 mcg/actuation 2 puff inhalation Q4H PRN 07/22/21 12/18/21 Rx aerosol inhaler (Ventolin HFA) Shortness Of Breath #1 inhaler glucagon 1 mg solution for 1 mg IM ONCE PRN Hypoglycemia #1 ea 07/22/21 12/18/21 Rx injection levetiracetam 750 mg tablet 750 mg PO BID #30 tabs 07/22/21 12/18/21 Rx (Keppra) lisinopril 40 mg tablet 40 mg PO QAM 09/29/21 12/18/21 History omeprazole 40 mg capsule,delayed 40 mg PO QAM 09/29/21 12/18/21 History release Probiotic 1 tab PO DAILY 10/20/21 12/18/21 History fluticasone 250 mcg-salmeterol 50 1 inh inhalation DAILY 10/20/21 12/18/21 History mcg/dose blistr powdr for inhalation metoclopramide HCl 10 mg tablet 10 mg PO TID PRN Nausea 10/20/21 12/18/21 His tory fentanyl 75 mcg/hr transdermal 75 mcg transdermal Q72H #3 ea 10/24/21 12/18/21 Rx patch amlodipine 10 mg tablet 10 mg PO DAILY 12/18/21 12/18/21 History hydromorphone 2 mg tablet 2 mg PO Q4H PRN Pain 12/18/21 12/18/21 History insulin aspart U-100 100 unit/mL 1 sliding scale dose subcut ACHS 12/18/21 12/18/21 History (3 mL) subcutaneous pen (Novolog Flexpen U-100 Insulin aspart) meclizine 12.5 mg tablet 12.5 mg PO TID PRN Dizziness 12/18/21 12/18/21 History olanzapine 2.5 mg tablet 2.5 mg PO HS 12/18/21 12/18/21 History ondansetron 4 mg disintegrating 4 mg PO Q8H PRN Nausea 12/18/21 12/18/21 History tablet Allergies Allergy/AdvReac Type Severity Reaction Status Date / Time bee venom protein (honey bee) Allergy Severe Swelling Verified 11/12/21 00:46 at site, SOB cat dander Allergy Unknown Unknown Verified 11/12/21 00:46 Penicillins Allergy Unknown Amoxicillin- Verified 11/12/21 00:46 "since " Past Med/Surg History Medical History Anemia Chronic pain COPD (chronic obstructive pulmonary disease) Diabetic gastroparesis DM type 1 (diabetes mellitus, type 1) Enlarged prostate ESRD (end stage renal disease) on dialysis Gastroparesis s/p gastric stimulator History of Crohn's disease HTN (hypertension) Lung cancer Dx 2016 [place]; + hilar nodes; s/p left upper lobectomy + chemo Neurogenic bladder On home oxygen therapy 2L/min NC PRN (no use x 1+ months) Orthostatic hypotension Primary cancer of left lung metastatic to other site Seizure disorder Hx grand mal seizures, no seizures x1+ years Surgical History H/O colonoscopy H/O esophagogastroduodenoscopy History of cholecystectomy History of knee surgery LEFT X 17/RIGHT X 2 History of tonsillectomy and adenoidectomy Hx of total knee arthroplasty S/P lobectomy of lung SHAWN Status post insertion of intrathecal pump explanted Family History Mother Diabetes Dementia Father Hypertension Diabetes Sister Crohn's disease Social History Smoking Status: Former smoker Tobacco Type: Cigarettes Second Hand Exposure: No; Do You Dip or Chew Tobacco: Yes; Hx Alcohol Use: No Hx Substance Use: No Preferred Language: Kosovan Communication Ability: Effective Visual Impairment: No Limitations [employer] Required: No Beliefs That Will Affect Care: None marital status: Unknown Current Living Situation: Alone Current Living Situation Comment: has family close by and available to assist current occupational status: disabled How many Children do You have: 5 Other Information That Helps Us Care for You: No Feels Safe at Home: Yes Safety Concerns: Feels Safe At This Time Diet Comment: Carb counting caffeine: No Physical Activity Frequency: Does not Exercise Physical Activity Frequency Comment: walks when able Assistive Devices: Cane and Walker Review of Systems A total of 10 systems reviewed and were otherwise negative All systems reviewed & are unremarkable except as noted in HPI & below Physical Exam Vital Signs Vital Signs - 24 hr 12/18/21 05:33 12/18/21 06:33 12/18/21 06:54 Temperature 36.8 C Temperature Source Temporal Artery Scan Pulse Rate 100 H Pulse Rate [Apical] 101 H 83 Respiratory Rate 20 18 Respiratory Effort / Characteristics Non-Labored Spontaneous Respiratory Depth Normal Respiratory Pattern Regular Blood Pressure 218/114 H Blood Pressure [Right Arm] 234/130 H 204/109 H Blood Pressure Mean 148 Blood Pressure Mean [Right Arm] 164 140 Blood Pressure Position Sitting Blood Pressure Position [Right Arm] Semi-fowlers Pulse Oximetry 100 100 97 Oxygen Delivery Method Room Air Room Air Room Air Sepsis Recent Fever Within 48 Hours No Sepsis New/Unexplained Change in Mental Status No Sepsis Action Taken by Nursing No Action Required 12/18/21 07:02 Temperature Temperature Source Pulse Rate Pulse Rate [Apical] 85 Respiratory Rate 16 Respiratory Effort / Characteristics Respiratory Depth Respiratory Pattern Blood Pressure Blood Pressure [Right Arm] 175/97 H Blood Pressure Mean Blood Pressure Mean [Right Arm] 123 Blood Pressure Position Blood Pressure Position [Right Arm] Pulse Oximetry 100 Oxygen Delivery Method Nasal Cannula Sepsis Recent Fever Within 48 Hours Sepsis New/Unexplained Change in Mental Status Sepsis Action Taken by Nursing GENERAL: alert, unwell appearing, well nourished, no distress, non-toxic EYE EXAM: normal conjunctiva, PERRL and EOM's grossly intact OROPHARYNX: no exudate, no erythema, lips, buccal mucosa, and tongue normal and mucous membranes are moist NECK: supple, no nuchal rigidity, no adenopathy, non-tender LUNGS: Clear to auscultation. Normal chest wall mechanics, no w/r/r HEART: no murmurs, S1 normal and S2 normal, port noted left anterior superior chest wall, central line access noted right anterior superior chest wall ABDOMEN: abdomen soft, non-tender, normo-active bowel sounds, no masses, no rebound or guarding. BACK: Back is symmetrical on inspection and there is no deformity, no midline tenderness, no CVA tenderness. SKIN: no rashes and no bruising UPPER EXTREMITIES: upper extremities are grossly normal. FROM, nml pulses b/l. LOWER EXTREMITIES: No pitting edema. FROM, nml pulses b/l. NEURO EXAM: Normal sensorium, cranial nerves II-XII grossly intact, normal speech, no gross weakness of arms, no gross weakness of legs. Gross sensation intact. Course Course 639: Patient states he did take his Dilaudid this morning before coming in and is wearing a fentanyl patch. He did not take any of his blood pressure medications. He is due for dialysis this morning and is a Saturday/Saturday/Saturday dialysis. Administered Medications Discontinued Medications Acetaminophen (Acetaminophen 325 Mg Tab) 650 mg PO Q8H DAMIR Stop: 01/17/22 10:29 Last Admin: 12/19/21 17:32 Dose: 650 mg Documented By: Admin: 12/19/21 09:08 Dose: 650 mg Documented By: Admin: 12/19/21 02:39 Dose: 650 mg Documented By: Admin: 12/18/21 18:28 Dose: Not Given Documented By: Admin: 12/18/21 11:59 Dose: Not Given Documented By: BRITTANY Amlodipine Besylate (Amlodipine Besylate 5 Mg Tab) 10 mg PO DAILY DAMIR Stop: 01/17/22 10:29 Last Admin: 12/19/21 09:09 Dose: 10 mg Documented By: Admin: 12/18/21 11:58 Dose: 10 mg Documented By: BRITTANY Clonidine HCl (Clonidine Hcl 0.2 Mg/24 Hr Transderm Sys) 1 patch TD Tu@0800 DAMIR Stop: 01/18/22 07:59 Last Admin: 12/19/21 09:07 Dose: 1 patch Documented By: YARON Dextrose (Dextrose 50% 50 Ml Syringe) 25 - 50 ml IV UD PRN; Protocol PRN Reason: Hypoglycemia Protocol Stop: 01/17/22 09:55 Last Admin: 12/19/21 11:45 Dose: 50 ml Documented By: YARON Docusate Sodium (Docusate Sodium 100 Mg Cap) 100 mg PO BID DAMIR Stop: 01/17/22 10:59 Last Admin: 12/19/21 09:10 Dose: Not Given Documented By: Admin: 12/18/21 21:14 Dose: Not Given Documented By: Admin: 12/18/21 11:59 Dose: Not Given Documented By: BRITTANY Fentanyl (Fentanyl 75 Mcg/Hr Tdsy) 75 mcg TD Q72H DAMIR Stop: 01/02/22 07:59 Last Admin: 12/19/21 09:07 Dose: 75 mcg Documented By: YARON Fluticasone/Vilanterol (Fluticasone/Vilanterol 100/25mcg 14 Puffs/Inhaler) 1 puffs INH DAILY DAMIR Stop: 01/18/22 08:59 Last Admin: 12/19/21 09:11 Dose: 1 puffs Documented By: YARON Gabapentin (Gabapentin 400 Mg Cap) 400 mg PO TID [facility] Stop: 01/17/22 13:59 Last Admin: 12/19/21 13:00 Dose: 400 mg Documented By: Admin: 12/19/21 09:09 Dose: 400 mg Documented By: Admin: 12/18/21 21:06 Dose: 400 mg Documented By: Admin: 12/18/21 13:53 Dose: Not Given Documented By: BRITTANY Heparin Sodium (Beef Lung) (Heparin 10 Unit/Ml 5 Ml Flush) Confirm Administered Dose 5 ml FLUSH .STK-MED ONE Stop: 12/19/21 09:12 Last Admin: 12/19/21 09:13 Dose: 5 ml Documented By: YRAON Heparin Sodium (Beef Lung) (Heparin 10 Unit/Ml 5 Ml Flush) 5 ml FLUSH PRN PRN PRN Reason: Flush Stop: 01/18/22 09:13 Last Admin: 12/19/21 17:32 Dose: 5 ml Documented By: Admin: 12/19/21 11:59 Dose: 5 ml Documented By: DAVID Heparin Sodium (Porcine) (Heparin Sod 5,000 Unit/0.5 Ml Vial) 5,000 units SQ Q8 [facility] Stop: 01/17/22 13:59 Last Admin: 12/19/21 13:00 Dose: 5,000 units Documented By: Admin: 12/19/21 02:40 Dose: 5,000 units Documented By: Admin: 12/18/21 21:08 Dose: 5,000 units Documented By: Admin: 12/18/21 13:53 Dose: Not Given Documented By: BRITTANY Heparin Sodium (Porcine) (Heparin Sod (Porcine) 1000 Unit/Ml) 1,000 units IV ONE ONE Stop: 12/18/21 12:46 Last Admin: 12/18/21 18:27 Dose: Not Given Documented By: BRITTANY Heparin Sodium (Porcine) (Heparin Sod (Porcine) 1000 Unit/Ml) 400 units IV Q1H [facility] Stop: 12/18/21 14:31 Last Admin: 12/18/21 18:27 Dose: Not Given Documented By: Admin: 12/18/21 18:27 Dose: Not Given Documented By: Admin: 12/18/21 18:27 Dose: Not Given Documented By: BRITTANY Hydralazine HCl (Hydralazine Hcl 20 Mg/Ml Vial) 10 mg IV NOW STA Stop: 12/18/21 07:03 Last Admin: 12/18/21 08:06 Dose: Not Given Documented By: ANNE MARIE Hydralazine HCl (Hydralazine Hcl 20 Mg/Ml Vial) 10 mg IV ONE STA Stop: 12/18/21 10:13 Last Admin: 12/18/21 10:17 Dose: 10 mg Documented By: ANNE MARIE Hydromorphone HCl (Hydromorphone Hcl 2 Mg Tab) 2 mg PO Q4H PRN PRN Reason: Severe Pain Stop: 01/01/22 09:55 Last Admin: 12/19/21 17:31 Dose: 2 mg Documented By: Admin: 12/19/21 12:59 Dose: 2 mg Documented By: Admin: 12/19/21 09:05 Dose: 2 mg Documented By: Admin: 12/19/21 02:40 Dose: 2 mg Documented By: Admin: 12/18/21 21:39 Dose: 2 mg Documented By: ADOLFO Sodium Chloride (Nss 1000ml) 1,000 mls @ 125 mls/hr IV .Q8H DAMIR Stop: 01/17/22 05:44 Last Infusion: 12/18/21 10:05 Dose: 0 mls/hr Documented By: ANNE MARIE Admin: 12/18/21 05:57 Dose: 125 mls/hr Documented By: NUSRAT Fosaprepitant 115 mg/ Sodium (Chloride) 115 mls @ 450 mls/hr IV ONE ONE Stop: 12/18/21 06:07 Last Infusion: 12/18/21 06:45 Dose: 0 mls/hr Documented By: Admin: 12/18/21 06:30 Dose: 450 mls/hr Documented By: NUSRAT Pantoprazole Sodium 40 mg/ (Syringe) 10 mls @ 5 mls/min IV BID DAMIR Stop: 01/17/22 10:29 Last Admin: 12/19/21 09:11 Dose: 5 mls/min Documented By: Admin: 12/18/21 21:07 Dose: 5 mls/min Documented By: Admin: 12/18/21 12:41 Dose: 5 mls/min Documented By: BRITTANY Insulin Aspart (Insulin Aspart Per Unit) 0 units SC ACHS DAMIR Stop: 01/17/22 11:29 Last Admin: 12/19/21 17:09 Dose: 2 units Documented By: YARON Co-signed By: DAVID Admin: 12/19/21 12:03 Dose: Not Given Documented By: DAVID Co-signed By: YARON Admin: 12/19/21 09:04 Dose: 13 units Documented By: YARON Co-signed By: DAVID Admin: 12/18/21 21:13 Dose: 8 units Documented By: ADOLFO Co-signed By: CRISTINE Admin: 12/18/21 18:55 Dose: Not Given Documented By: BRITTANY Co-signed By: GREY Admin: 12/18/21 12:40 Dose: 6 units Documented By: BRITTANY Co-signed By: RACHEL Insulin Glargine (Lantus Per Unit Charge) 7 units SQ QPM DAMIR Stop: 01/17/22 20:59 Last Admin: 12/18/21 21:13 Dose: 7 units Documented By: ADOLFO Co-signed By: CRISTINE Labetalol HCl (Labetalol Hcl Iv 5 Mg/Ml 20ml) 10 mg IV NOW STA Stop: 12/18/21 06:32 Last Admin: 12/18/21 06:36 Dose: 10 mg Documented By: NUSRAT Co-signed By: SHITAL Labetalol HCl (Labetalol Hcl Iv 5 Mg/Ml 20ml) 10 mg IV NOW STA Stop: 12/18/21 06:57 Last Admin: 12/18/21 09:58 Dose: Not Given Documented By: SLB Levetiracetam (Levetiracetam 250 Mg Tab) 750 mg PO BID DAMIR Stop: 01/17/22 20:59 Last Admin: 12/19/21 09:09 Dose: 750 mg Documented By: Admin: 12/18/21 21:50 Dose: 750 mg Documented By: ADOLFO Lidocaine (Lidocaine 5% 1 Patch) 1 patch TD QAM DAMIR Stop: 01/17/22 10:29 Last Admin: 12/19/21 09:10 Dose: 1 patch Documented By: Admin: 12/18/21 11:58 Dose: 1 patch Documented By: BRITTANY Lisinopril (Lisinopril 40 Mg Tab) 40 mg PO QAM DAMIR Stop: 01/18/22 08:59 Last Admin: 12/19/21 09:09 Dose: 40 mg Documented By: YARON Metoclopramide HCl (Metoclopramide Hcl Inj 5 Mg/Ml 2 Ml Vial) 10 mg IV Q8H DAMIR Stop: 01/17/22 10:29 Last Admin: 12/19/21 17:32 Dose: 10 mg Documented By: Admin: 12/19/21 09:12 Dose: 10 mg Documented By: Admin: 12/19/21 02:40 Dose: 10 mg Documented By: Admin: 12/18/21 18:58 Dose: 10 mg Documented By: Admin: 12/18/21 11:58 Dose: 10 mg Documented By: BRITTANY Macias (Remove Clonidine Patch) 1 each N/A CQWK DAMIR Stop: 01/18/22 07:58 Last Admin: 12/19/21 09:05 Dose: 1 each Documented By: YARON Macias (Check Clonidine Patch Placement) 1 each N/A QS [facility] Stop: 01/17/22 15:59 Last Admin: 12/19/21 16:01 Dose: 1 each Documented By: Admin: 12/19/21 09:05 Dose: 1 each Documented By: Admin: 12/18/21 22:42 Dose: 1 each Documented By: Admin: 12/18/21 16:13 Dose: 1 each Documented By: BRITTANY Macias (Fentanyl Patch Remove & Waste) 1 each N/A Q3D DAMIR Stop: 01/18/22 07:58 Last Admin: 12/19/21 09:05 Dose: 1 each Documented By: YARON Co-signed By: DAVID Macias (Check Fentanyl Patch Placement) 1 each N/A QS [facility] Stop: 01/17/22 15:59 Last Admin: 12/19/21 16:01 Dose: 1 each Documented By: Admin: 12/19/21 09:07 Dose: 1 each Documented By: Admin: 12/18/21 22:43 Dose: 1 each Documented By: Admin: 12/18/21 16:14 Dose: 1 each Documented By: BRITTANY Macias (Remove Lidoderm Patch) 1 each N/A DAILY@2100 DAMIR Stop: 01/17/22 20:59 Last Admin: 12/18/21 21:07 Dose: 1 each Documented By: Olanzapine (Olanzapine 2.5 Mg Tab) 2.5 mg PO HS DAMIR Stop: 01/17/22 20:59 Last Admin: 12/18/21 21:50 Dose: 2.5 mg Documented By: Ondansetron HCl (Ondansetron Inj 2 Mg/Ml 2 Ml Vial) 4 mg IV Q8H DAMIR Stop: 01/17/22 10:29 Last Admin: 12/19/21 17:32 Dose: 4 mg Documented By: Admin: 12/19/21 09:12 Dose: 4 mg Documented By: Admin: 12/19/21 02:40 Dose: 4 mg Documented By: Admin: 12/18/21 18:57 Dose: 4 mg Documented By: Admin: 12/18/21 11:57 Dose: 4 mg Documented By: BRITTANY Polyethylene Glycol (Polyethylene (Miralax) 17 Gm Pack) 17 gm PO BID DAMIR Stop: 01/17/22 10:59 Last Admin: 12/19/21 09:12 Dose: Not Given Documented By: Admin: 12/18/21 21:09 Dose: Not Given Documented By: Admin: 12/18/21 11:59 Dose: Not Given Documented By: BRITTANY Medical Decision Making Differential Diagnosis Differential: Gastroenteritis, Food Borne, Esophageal Perforation, , Electrolyte Abnormality, Dehydration, Intraabdominal Infection, UTI/Pyelonephritis, Bowel Obstruction, Biliary Pathology, amongst other pathology entertained. Medical Records Attestation: I reviewed the patient's medical records. Home Medications Current Medication List: was personally reviewed by me Laboratory Data Attestation: I reviewed the patient's lab results. Result diagrams: 12/19/21 08:18 12/19/21 08:18 Lab Results 12/18/21 12/18/21 12/18/21 Range/Units 05:52 05:52 05:52 WBC 9.30 (4.8-10.8) K/ul RBC 2.96 L (4.63-6.08) M/uL Hgb 8.6 L (14.0-18.0) g/dl Hct 27.3 L (40.1-51.0) % MCV 92.2 (80.0-100.0) fL MCH 29.1 (25.0-34.0) pg MCHC 31.5 L (32.0-36.0) g/dL RDW Std Deviation 44.5 (36.4-46.3) fL RDW Coeff of Rik 13.7 (11.5-14.5) % Plt Count 347 (130-400) K/uL MPV 9.5 (9.4-12.4) fL Immature Gran % (Auto) 0.6 % Neut % (Auto) 84.1 % Lymph % (Auto) 6.3 % [place] % (Auto) 6.7 % Eos % (Auto) 1.8 % Baso % (Auto) 0.5 % Neut # (Auto) 7.81 H (1.4-6.5) K/uL Lymph # (Auto) 0.59 L (1.2-3.4) K/uL [place] # (Auto) 0.62 (0.24-0.82) K/uL Eos # (Auto) 0.17 (0-0.50) K/uL Baso # (Auto) 0.05 (0-0.2) K/uL Immature Gran # (Auto) 0.06 H (0.00-0.02) K/uL Sodium 131 L (136-145) mmol/L Potassium 4.4 (3.5-5.1) mmol/L Chloride 94 L (98-107) mmol/L Carbon Dioxide 20 L (21-32) mmol/L Anion Gap 17 H (3-11) BUN 41 H (6-23) mg/dl Creatinine 8.22 H* (0.6-1.4) mg/dl Est Cr Clr Drug Dosing 9.7 ml/min Est GFR ( Amer) 7.6 ml/min Est GFR (Non-Af Amer) 6.6 ml/min BUN/Creatinine Ratio 5.0 L (10-20) Glucose 204 H (70-99(Fasting)) mg/dl POC Glucose (70-99) mg/dl Calcium 8.3 L (8.5-10.1) mg/dl Phosphorus 6.9 H (2.5-4.9) mg/dl Magnesium 1.8 (1.7-2.4) mg/dl Total Bilirubin 0.4 (0.2-1.0) mg/dl AST 8 L (13-39) U/L ALT 7 (7-52) U/L Alkaline Phosphatase 117 H (34-104) U/L Troponin I High Sens 14.8 D (0-20) pg/ml Total Protein 7.8 (6.0-8.3) gm/dl Albumin 3.7 (3.4-5.0) gm/dl Globulin 4.1 H (2.5-4.0) gm/dl Albumin/Globulin Ratio 0.9 (0.9-2) Lipase 4 L (11-82) U/L SARS-CoV-2, RNA, NAAT (NEGATIVE) 12/18/21 12/18/21 Range/Units 06:00 08:11 WBC (4.8-10.8) K/ul RBC (4.63-6.08) M/uL Hgb (14.0-18.0) g/dl Hct (40.1-51.0) % MCV (80.0-100.0) fL MCH (25.0-34.0) pg MCHC (32.0-36.0) g/dL RDW Std Deviation (36.4-46.3) fL RDW Coeff of Rik (11.5-14.5) % Plt Count (130-400) K/uL MPV (9.4-12.4) fL Immature Gran % (Auto) % Neut % (Auto) % Lymph % (Auto) % [place] % (Auto) % Eos % (Auto) % Baso % (Auto) % Neut # (Auto) (1.4-6.5) K/uL Lymph # (Auto) (1.2-3.4) K/uL [place] # (Auto) (0.24-0.82) K/uL Eos # (Auto) (0-0.50) K/uL Baso # (Auto) (0-0.2) K/uL Immature Gran # (Auto) (0.00-0.02) K/uL Sodium (136-145) mmol/L Potassium (3.5-5.1) mmol/L Chloride (98-107) mmol/L Carbon Dioxide (21-32) mmol/L Anion Gap (3-11) BUN (6-23) mg/dl Creatinine (0.6-1.4) mg/dl Est Cr Clr Drug Dosing ml/min Est GFR ( Amer) ml/min Est GFR (Non-Af Amer) ml/min BUN/Creatinine Ratio (10-20) Glucose (70-99(Fasting)) mg/dl POC Glucose 207 H (70-99) mg/dl Calcium (8.5-10.1) mg/dl Phosphorus (2.5-4.9) mg/dl Magnesium (1.7-2.4) mg/dl Total Bilirubin (0.2-1.0) mg/dl AST (13-39) U/L ALT (7-52) U/L Alkaline Phosphatase (34-104) U/L Troponin I High Sens (0-20) pg/ml Total Protein (6.0-8.3) gm/dl Albumin (3.4-5.0) gm/dl Globulin (2.5-4.0) gm/dl Albumin/Globulin Ratio (0.9-2) Lipase (11-82) U/L SARS-CoV-2, RNA, NAAT NEGATIVE (NEGATIVE) Imaging Data Radiologist's Impression: CT SCAN OF THE ABDOMEN AND PELVIS WITHOUT IV CONTRAST CLINICAL HISTORY: Epigastric abdominal pain. Vomiting. History of lung cancer. COMPARISON STUDY: Abdominal CT dated 07/03/2021. TECHNIQUE: CT scan of the abdomen and pelvis is performed from the lung bases to the proximal femora. Images are reviewed in the axial, sagittal, and coronal planes. IV contrast was not administered for this examination. Note that the examination is suboptimal without oral and IV contrast. A dose lowering technique was utilized adhering to the principles of ALARA. CT DOSE: 332.15 mGy.cm FINDINGS: Lung bases: The time of the central venous catheter terminates at the cavoatrial junction. The heart is top normal in size and without pericardial effusion. There are coronary artery calcifications. A small hiatal hernia is observed. The re is trace left pleural effusion with bibasilar scarring/atelectasis. A 4 mm pleural-based nodule at the right lung base on image #44 and a 3 mm pleural- based nodule at the right lung base on image #56 are unchanged from previous. There is no airspace consolidation typical for pneumonia. Liver: The unenhanced liver is normal in size, contour, and attenuation. There is no intrahepatic biliary ductal dilatation. Gallbladder: Surgically absent noting clips in the gallbladder fossa. Spleen: Normal in size and attenuation. Pancreas: The unenhanced pancreas is atrophic and grossly unremarkable. 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 The left adrenal gland is normal in appearance. Kidneys: The unenhanced kidneys are normal in size and without hydronephrosis. There are no renal calculi identified. There is no evidence of contour deforming renal mass lesion. Abdominal vasculature: The abdominal aorta is normal in course and caliber noting mild to moderate atherosclerotic calcification. Stomach and bowel: Postoperative change is noted in the stomach with gastric leads in place. Question gastric wall thickening. There is no bowel obstruction. Moderate fecal retention is seen throughout the colon. The appendix is dilated but unchanged from prior studies. There is no CT evidence of acute appendicitis. Peritoneum: There is no intraperitoneal free air or abdominal ascites. A gastric stimulator device is present in the left lower quadrant abdominal wall. Lymphadenopathy: There are mildly enlarged retroperitoneal lymph nodes which measure up to 11 mm in short axis. Pelvic viscera: The bladder wall appears circumferentially thickened. The pro state and seminal vesicles are normal as visualized. Skeletal structures: There are subacute right anterior 5th and 6rth rib fractures. There are permeative destructive lesions of the left 8th and 9th ribs. The 8th rib lesion is new from previous. Additional tiny osteolytic lesions are suggested in the bony pelvis. IMPRESSION: 1. Significantly suboptimal examination without oral and IV contrast. 2. The bladder wall appears circumferentially thickened. Correlate with clinical findings and urinalysis. 3. Question gastric wall thickening. This is not well assessed by CT and clinical correlation will be required. If warranted this could be further assessed with endoscopy. 4. Subacute right anterior rib fractures as above. 5. There is evidence of progressive osseous metastatic disease involving the left ribs as compared to the 07/03/2021 examination. 6. Trace left pleural effusion. 7. Moderate constipation. 8. Mildly enlarged retroperitoneal lymph nodes are similar to previous. 9. Additional findings as above. ACT 112: Negative or not required by law. Electronically signed by: Russell Ty M.D. 12/18/2021 7:55 AM ECG Data Attestation: I personally reviewed and interpreted this ECG as follows: Indication: + abdominal pain Rate (beats per minute): 109 Rhythm: + sinus tachycardia ECG Intervals/blocks: + Normal QRS and + Normal QT ECG [place]: + Left axis deviation ECG ST segments: + Nonspecific ST abnormalities MDM Narrative An order was placed for continuous cardiac monitoring. The monitor shows a rate of _72__ with _normal sinus__ rhythm. THis is an ill appearing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
[2021-12-18 06:06] LABS: Basophils # (auto) 0.05 K/uL (0-0.2); Basophils % (auto) 0.5 %; Eosinophils # (auto) 0.17 K/uL (0-0.50); Eosinophils % (auto) 1.8 %; Hematocrit (blood only) 27.3 % (40.1-51.0); Hemoglobin 8.6 g/dl (14.0-18.0); Immature Granulocytes # (auto) 0.06 K/uL (0.00-0.02); Immature Granulocytes % (auto) 0.6 %; Lymphocytes # (auto) 0.59 K/uL (1.2-3.4); Lymphocytes % (auto) 6.3 %; Mean Corpuscular Hemoglobin 29.1 pg (25.0-34.0); Mean Corpuscular Hgb Conc 31.5 g/dL (32.0-36.0); Mean Corpuscular Volume 92.2 fL (80.0-100.0); Mean Platelet Volume 9.5 fL (9.4-12.4); Monocytes # (auto) 0.62 K/uL (0.24-0.82); Monocytes % (auto) 6.7 %; Neutrophils # (auto) 7.81 K/uL (1.4-6.5); Neutrophils % (auto) 84.1 %; Platelet Count 347 K/uL (130-400); RDW Coefficient of Variation 13.7 % (11.5-14.5); RDW Standard Deviation 44.5 fL (36.4-46.3); Red Blood Count 2.96 M/uL (4.63-6.08)
[2021-12-18] MEDS ORDERED: LABETALOL HCL IV 5 MG/ML 20ML IV STA ×2 (06:31→06:56)
[2021-12-18 06:56] LABS: Albumin Globulin Ratio 0.9 (0.9-2); Albumin Level 3.7 gm/dl (3.4-5.0); Bilirubin,Total 0.4 mg/dl (0.2-1.0); Calcium 8.3 mg/dl (8.5-10.1); Creatinine Clr Calc Pharmacy 9.7 ml/min; Est GFR (African American) 7.6 ml/min; Est GFR (Non-African American) 6.6 ml/min; Globulin 4.1 gm/dl (2.5-4.0); Magnesium 1.8 mg/dl (1.7-2.4); Potassium 4.4 mmol/L (3.5-5.1); Total Protein 7.8 gm/dl (6.0-8.3); Troponin I High Sensitivity 14.8 pg/ml (0-20)
[2021-12-18] MEDS ORDERED: hydrALAZINE HCL 20 MG/ML VIAL IV STA ×2 (07:02→10:12)
--- NOTE | 2021-12-18 07:57 | CT Scan Report ---
CT SCAN OF THE ABDOMEN AND PELVIS WITHOUT IV CONTRAST CLINICAL HISTORY: Epigastric abdominal pain. Vomiting. History of lung cancer. COMPARISON STUDY: Abdominal CT dated 07/03/2021. TECHNIQUE: CT scan of the abdomen and pelvis is performed from the lung bases to the proximal femora. Images are reviewed in the axial, sagittal, and coronal planes. IV contrast was not administered for this examination. Note that the examination is suboptimal without oral and IV contrast. A dose lower ing technique was utilized adhering to the principles of ALARA. CT DOSE: 332.15 mGy.cm FINDINGS: Lung bases: The time of the central venous catheter terminates at the cavoatrial junction. The heart is top normal in size and without pericardial effusion. There are coronary artery calcifications. A s mall hiatal hernia is observed. There is trace left pleural effusion with bibasilar scarring/atelecta sis. A 4 mm pleural-based nodule at the right lung base on image #44 and a 3 mm pleural-based nodule at the right lung base on image #56 are unchanged from previous. There is no airspace consolidation t ypical for pneumonia. Liver: The unenhanced liver is normal in size, contour, and attenuation. There is no intrahepatic el iary ductal dilatation. Gallbladder: Surgically absent noting clips in the gallbladder fossa. Spleen: Normal in size and attenuation. Pancreas: The unenhanced pancreas is atrophic and grossly unremarkable. 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 The left adrenal gland is n ormal in appearance. Kidneys: The unenhanced kidneys are normal in size and without hydronephrosis. There are no renal guillermina culi identified. There is no evidence of contour deforming renal mass lesion. Abdominal vasculature: The abdominal aorta is normal in course and caliber noting mild to moderate at herosclerotic calcification. Stomach and bowel: Postoperative change is noted in the stomach with gastric leads in place. Question gastric wall thickening. There is no bowel obstruction. Moderate fecal retention is seen throughout the colon. The appendix is dilated but unchanged from prior studies. There is no CT evidence of acut e appendicitis. Peritoneum: There is no intraperitoneal free air or abdominal ascites. A gastric stimulator device is present in the left lower quadrant abdominal wall. Lymphadenopathy: There are mildly enlarged retroperitoneal lymph nodes which measure up to 11 mm in s hort axis. Pelvic viscera: The bladder wall appears circumferentially thickened. The prostate and seminal vesicl es are normal as visualized. Skeletal structures: There are subacute right anterior 5th and 6rth rib fractures. There are permeati ve destructive lesions of the left 8th and 9th ribs. The 8th rib lesion is new from previous. Additio nal tiny osteolytic lesions are suggested in the bony pelvis. IMPRESSION: 1. Significantly suboptimal examination without oral and IV contrast. 2. The bladder wall appears circumferentially thickened. Correlate with clinical findings and urinaly sis. 3. Question gastric wall thickening. This is not well assessed by CT and clinical correlation will be required. If warranted this could be further assessed with endoscopy. 4. Subacute right anterior rib fractures as above. 5. There is evidence of progressive osseous metastatic disease involving the left ribs as compared to the 07/03/2021 examination. 6. Trace left pleural effusion. 7. Moderate constipation. 8. Mildly enlarged retroperitoneal lymph nodes are similar to previous. 9. Additional findings as above. ACT 112: Negative or not required by law. Electronically signed by: Russell Ty M.D. 12/18/2021 7:55 AM
[2021-12-18] MEDS ORDERED: METOCLOPRAMIDE HCL INJ 5 MG/ML 2 ML VIAL IV PRN (08:20)
--- NOTE | 2021-12-18 09:17 | Gastrointestinal Consultation ---
Date of Consultation December 18, 2021 Assessment & Plan (1) Gastroparesis: 56 year old male with non-small cell lung cancer status post surgery, chemo, radiation with mets to bone, end-stage renal disease on hemodialysis, insulin- dependent T2DM, seizure disorder, gastroparesis status post gastric stimulator placement presenting with abd pain, nausea, nonbloody emesis. LFTs/lipase okay, CT w/ gastric thickening, otherwise no GI acute changes NPO for bowel rest Can advance to clear liquids then advance as tolerated when he is symptomatically improved IV PPI BID x 48 hours then convert to PO Would be cautious regarding narcotic analgesia use Would convert PO Reglan to scheduled IV Would convert PO Zofran to scheduled IV Plan for discharge for appt gastric pacer adjustment Thank you for allowing us to participate in the care of this patient. Please call with any acute changes, questions or concerns. Please see addendum below with additional recommendation from my supervising physician. Supervising Physician Co-Signing Physician Notes I performed a history and physical examination of the patient today, including specifically on physical exam - soft abdomen. I have discussed the patient's management with the advanced practitioner. Please refer to the nurse practitioner's note for the documented findings and plan of care. Gastroparesis, follows with Renee. Has a stimulator. Admitted with a flare. Prior EGD with esophagitis. Received Emend. Feeling better already. Recommend IV PPI. IV Reglan. Clear liquids. EGD as OP with primary GI. Recall GI if needed. History of Present Illness Reason for Consultation: nausea/vomiting Requesting Physician: Joceline Attending Physician: Joceline History of Present Illness 56 year old male with history of non-small cell lung cancer status post surgery, chemo, radiation with mets to bone, end-stage renal disease on hemodialysis, insulin-dependent T2DM, seizure disorder, gastroparesis status post gastric stimulator placement presenting with abd pain, nausea/vomiting in the setting of gastroparesis. GI asked to evaluate. Pt notes that he has had worsening GI symptoms for a few months, is scheduled for gastric pacer eval and adjustment this week with his regular GI providers. Notes over the last 3/4 days, he has had worsening symptoms. Abd pain, nausea and nonbloody emesis, last episode this AM. WBC 9, HGB 8.6, HCT 27, NA 131, HEATING AND VENTILATING TENDER 8, TB 0.4, AST 8, ALT 7, ALKP 117, Lipase 4, CTAP 2021: Significantly suboptimal examination without oral and IV contrast.The bladder wall appears circumferentially thickened. Correlate with clinical findings and urinalysis.Question gastric wall thickening. This is not well assessed by CT and clinical correlation will be required. If warranted this could be further assessed with endoscopy. Subacute right anterior rib fractures as above. There is evidence of progressive osseous metastatic disease involving the left ribs as compared to the 07/03/2021 examination. Trace left pleural effusion. Moderate constipation. 8. Mildly enlarged retroperitoneal lymph nodes are similar to previous. EGD 2020: Normal esophagus. - LA Grade D esophagitis. - Distal esophageal ulcers that appeared clean based but a few with erythema. - Retained fluid with hematin in the examined stomach. - Normal duodenal bulb and second portion of the duodenum. Allergies Allergy/AdvReac Type Severity Reaction Status Date / Time bee venom protein (honey bee) Allergy Severe Swelling Verified 11/12/21 00:46 at site, SOB cat dander Allergy Unknown Unknown Verified 11/12/21 00:46 Penicillins Allergy Unknown Amoxicillin- Verified 11/12/21 00:46 "since " Home Medications Medication Instructions Recorded Confirmed Type blood sugar diagnostic 04/26/21 12/18/21 History flash glucose sensor (FreeStyle 04/26/21 12/18/21 History Amparo 14 Day Sensor kit) gabapentin 400 mg capsule 400 mg PO TID 04/26/21 12/18/21 History insulin glargine 100 unit/mL (3 7 unit subcut QPM 04/26/21 12/18/21 History mL) subcutaneous pen (Lantus Solostar U-100 Insulin) clonidine 0.2 mg/24 hr weekly 0.2 mg transdermal FR 06/30/21 12/18/21 History transdermal patch albuterol sulfate 90 mcg/actuation 2 puff inhalation Q4H PRN 07/22/21 12/18/21 Rx aerosol inhaler (Ventolin HFA) Shortness Of Breath #1 inhaler glucagon 1 mg solution for 1 mg IM ONCE PRN Hypoglycemia #1 ea 07/22/21 12/18/21 Rx injection levetiracetam 750 mg tablet 750 mg PO BID #30 tabs 07/22/21 12/18/21 Rx (Keppra) lisinopril 40 mg tablet 40 mg PO QAM 09/29/21 12/18/21 History omeprazole 40 mg capsule,delayed 40 mg PO QAM 09/29/21 12/18/21 History release Probiotic 1 tab PO DAILY 10/20/21 12/18/21 History fluticasone 250 mcg-salmeterol 50 1 inh inhalation DAILY 10/20/21 12/18/21 History mcg/dose blistr powdr for inhalation metoclopramide HCl 10 mg tablet 10 mg PO TID PRN Nausea 10/20/21 12/18/21 History fentanyl 75 mcg/hr transdermal 75 mcg transdermal Q72H #3 ea 10/24/21 12/18/21 Rx patch amlodipine 10 mg tablet 10 mg PO DAILY 12/18/21 12/18/21 History hydromorphone 2 mg tablet 2 mg PO Q4H PRN Pain 12/18/21 12/18/21 History insulin aspart U-100 100 unit/mL 1 sliding scale dose subcut ACHS 12/18/2112/18 History (3 mL) subcutaneous pen (Novolog Flexpen U-100 Insulin aspart) meclizine 12.5 mg tablet 12.5 mg PO TID PRN Dizziness 12/18/21 12/18/21 History olanzapine 2.5 mg tablet 2.5 mg PO HS 12/18/21 12/18/21 History ondansetron 4 mg disintegrating 4 mg PO Q8H PRN Nausea 12/18/21 12/18/21 History tablet Patient History Medical History Anemia Chronic pain COPD (chronic obstructive pulmonary disease) Diabetic gastroparesis DM type 1 (diabetes mellitus, type 1) Enlarged prostate ESRD (end stage renal disease) on dialysis Gastroparesis s/p gastric stimulator History of Crohn's disease HTN (hypertension) Lung cancer Dx 2015 [facility] [place]; + hilar nodes; s/p left upper lobectomy + chemo Neurogenic bladder On home oxygen therapy 2L/min NC PRN (no use x 1+ months) Orthostatic hypotension Primary cancer of left lung metastatic to other site Seizure disorder Hx grand mal seizures, no seizures x1+ years Surgical History H/O colonoscopy H/O esophagogastroduodenoscopy History of cholecystectomy History of knee surgery LEFT X 17/RIGHT X 2 History of tonsillectomy and adenoidectomy Hx of total knee arthroplasty S/P lobectomy of lung SHAWN Status post insertion of intrathecal pump explanted Family History Mother Diabetes Dementia Father Hypertension Diabetes Sister Crohn's disease Social History Smoking Status: Former smoker Tobacco Type: Cigarettes Second Hand Exposure: No; Do You Dip or Chew Tobacco: Yes; Hx Alcohol Use: No Hx Substance Use: No Preferred Language: Bulgarian Communication Ability: Effective Visual Impairment: No Limitations Cyber Systems Administrator Required: No Beliefs That Will Affect Care: None marital status: Single Current Living Situation: Alone Current Living Situation Comment: has family close by and available to assist current occupational status: disabled How many Children do You have: 5 Other Information That Helps Us Care for You: No Feels Safe at Home: Yes Safety Concerns: Feels Safe At This Time Diet Comment: Carb counting caffeine: No Physical Activity Frequency: Does not Exercise Physical Activity Frequency Comment: walks when able Assistive Devices: Oxygen - Continuous and Walker Review of Systems Review of Systems: All systems reviewed & are unremarkable except as noted in HPI & below Physical Exam Constitutional: WD/WN, vitals as above Neck: trachea midline, no thyromegaly Respiratory: normal respiratory effort, lungs clear to auscultation Cardiovascular: Rate/Rhythm: regular rate and regular rhythm Gastrointestinal (Abdomen): Inspection/Auscultation: abdomen normal to inspection and normal bowel sounds Percussion/Palpation: + abdomen tender and abdomen soft; no guarding and abdomen not rigid Skin: no rashes, warm and dry Results & Data ([facility]) Vital Signs (Past 12 Hours) Vital Signs Temp Pulse Pulse Resp BP BP Pulse Ox 12/18/21 08:42 82 18 190/112 H 100 12/18/21 08:00 171/99 H 12/18/21 07:37 80 14 187/103 H 100 12/18/21 07:02 85 16 175/97 H 100 12/18/21 06:54 83 18 204/109 H 97 12/18/21 06:33 101 H 234/130 H 100 12/18/21 05:33 36.8 C 100 H 20 218/114 H 100 O2 Del Method O2 Flow Rate 12/18/21 08:42 Room Air 12/18/21 08:00 12/18/21 07:37 Nasal Cannula 2 12/18/21 07:02 Nasal Cannula 12/18/21 06:54 Room Air 12/18/21 06:33 Room Air 12/18/21 05:33 Room Air Laboratory Results 12/18/21 12/18/21 12/18/21 Range/Units 08:11 06:00 05:52 WBC (4.8-10.8) K/ul RBC (4.63-6.08) M/uL Hgb (14.0-18.0) g/dl Hct (40.1-51.0) % MCV (80.0-100.0) fL MCH (25.0-34.0) pg MCHC (32.0-36.0) g/dL RDW Std Deviation (36.4-46.3) fL RDW Coeff of Rik (11.5-14.5) % Plt Count (130-400) K/uL MPV (9.4-12.4) fL Immature Gran % (Auto) % Neut % (Auto) % Lymph % (Auto) % [place] % (Auto) % Eos % (Auto) % Baso % (Auto) % Neut # (Auto) (1.4-6.5) K/uL Lymph # (Auto) (1.2-3.4) K/uL [place] # (Auto) (0.24-0.82) K/uL Eos # (Auto) (0-0.50) K/uL Baso # (Auto) (0-0.2) K/uL Immature Gran # (Auto) (0.00-0.02) K/uL Sodium (136-145) mmol/L Potassium (3.5-5.1) mmol/L Chloride (98-107) mmol/L Carbon Dioxide (21-32) mmol/L Anion Gap (3-11) BUN (6-23) mg/dl Creatinine (0.6-1.4) mg/dl Est Cr Clr Drug Dosing ml/min Est GFR ( Amer) ml/min Est GFR (Non-Af Amer) ml/min BUN/Creatinine Ratio (10-20) Glucose (70-99(Fasting)) mg/dl POC Glucose 207 H (70-99) mg/dl Calcium (8.5-10.1) mg/dl Phosphorus 6.9 H (2.5-4.9) mg/dl Magnesium (1.7-2.4) mg/dl Total Bilirubin (0.2-1.0) mg/dl AST (13-39) U/L ALT (7-52) U/L Alkaline Phosphatase (34-104) U/L Troponin I High Sens (0-20) pg/ml Total Protein (6.0-8.3) gm/dl Albumin (3.4-5.0) gm/dl Globulin (2.5-4.0) gm/dl Albumin/Globulin Ratio (0.9-2) Lipase (11-82) U/L SARS-CoV-2, RNA, NAAT NEGATIVE (NEGATIVE) 12/18/21 12/18/21 Range/Units 05:52 05:52 WBC 9.30 (4.8-10.8) K/ul RBC 2.96 L (4.63-6.08) M/uL Hgb 8.6 L (14.0-18.0) g/dl Hct 27.3 L (40.1-51.0) % MCV 92.2 (80.0-100.0) fL MCH 29.1 (25.0-34.0) pg MCHC 31.5 L (32.0-36.0) g/dL RDW Std Deviation 44.5 (36.4-46.3) fL RDW Coeff of Rik 13.7 (11.5-14.5) % Plt Count 347 (130-400) K/uL MPV 9.5 (9.4-12.4) fL Immature Gran % (Auto) 0.6 % Neut % (Auto) 84.1 % Lymph % (Auto) 6.3 % [place] % (Auto) 6.7 % Eos % (Auto) 1.8 % Baso % (Auto) 0.5 % Neut # (Auto) 7.81 H (1.4-6.5) K/uL Lymph # (Auto) 0.59 L (1.2-3.4) K/uL [place] # (Auto) 0.62 (0.24-0.82) K/uL Eos # (Auto) 0.17 (0-0.50) K/uL Baso # (Auto) 0.05 (0-0.2) K/uL Immature Gran # (Auto) 0.06 H (0.00-0.02) K/uL Sodium 131 L (136-145) mmol/L Potassium 4.4 (3.5-5.1) mmol/L Chloride 94 L (98-107) mmol/L Carbon Dioxide 20 L (21-32) mmol/L Anion Gap 17 H (3-11) BUN 41 H (6-23) mg/dl Creatinine 8.22 H* (0.6-1.4) mg/dl Est Cr Clr Drug Dosing 9.7 ml/min Est GFR ( Amer) 7.6 ml/min Est GFR (Non-Af Amer) 6.6 ml/min BUN/Creatinine Ratio 5.0 L (10-20) Glucose 204 H (70-99(Fasting)) mg/dl POC Glucose (70-99) mg/dl Calcium 8.3 L (8.5-10.1) mg/dl Phosphorus (2.5-4.9) mg/dl Magnesium 1.8 (1.7-2.4) mg/dl Total Bilirubin 0.4 (0.2-1.0) mg/dl AST 8 L (13-39) U/L ALT 7 (7-52) U/L Alkaline Phosphatase 117 H (34-104) U/L Troponin I High Sens 14.8 D (0-20) pg/ml Total Protein 7.8 (6.0-8.3) gm/dl Albumin 3.7 (3.4-5.0) gm/dl Globulin 4.1 H (2.5-4.0) gm/dl Albumin/Globulin Ratio 0.9 (0.9-2) Lipase 4 L (11-82) U/L SARS-CoV-2, RNA, NAAT (NEGATIVE)
--- NOTE | 2021-12-18 09:32 | Electrocardiogram Report ---
Test Reason : Blood Pressure : / mmHG Vent. Rate : 109 BPM Atrial Rate : 109 BPM P-R Int : 154 ms QRS Dur : 098 ms QT Int : 344 ms P-R-T Axes : 069 -33 062 degrees QTc Int : 463 ms Poor data quality, interpretation may be adversely affected Sinus tachycardia Left axis deviation Abnormal ECG When compared with ECG of 12-NOV-2021 01:25, ST no longer elevated in Lateral leads Nonspecific T wave abnormality no longer evident in Inferior leads Confirmed by Surya Polk ([id number]) on 12/18/2021 9:32:08 AM Referred By: Confirmed By:Surya Polk
--- NOTE | 2021-12-18 09:46 | History & Physical Report ---
Date of Service December 18, 2021 Assessment & Plan (1) Intractable nausea and vomiting: (2) Gastroparesis: (3) Gastritis: Plan: Admit to [facility] with telemetry Patient presenting from home with reports of intractable nausea and vomiting. History of severe gastroparesis s/p gastric pacemaker. Patient reports he struggles with nausea and vomiting on a daily basis. EGD 02/2021-LA grade D esophagitis, superficial distal esophageal ulceration, normal duodenal bulb and second portion of duodenum CT ABD/pelvis shows possible gastric wall thickening, moderate constipation Received a dose of Emend in the ED with improvement in N/V Start IV PPI twice daily, schedule Reglan, bowel regimen GI consult, LINDSAY Rangel notified (4) Hypertensive urgency: Plan: BP 234/130 on presentation Likely due to inability to take p.o. meds S/p IV labetalol and IV hydralazine in the ED Resume home amlodipine and lisinopril, continue clonidine patch PRN hydralazine (5) Rib fractures: Plan: CT shows subacute right anterior 5th and 6rth rib fractures Scheduled Tylenol, Lidoderm patch, incentive spirometer (6) Primary cancer of left lung metastatic to other site: Plan: History of non-small cell lung cancer with mets to left ribs S/p chemo and radiation CT scan today shows evidence of progressive osseous metastatic disease involving the left ribs as compared to the 07/03/[address] Lion Keith -- has appt scheduled on 12/21 (7) ESRD (end stage renal disease) on dialysis: Plan: HD MWF Electrolytes and volume status acceptable Dr. Lord notified (8) Anemia: Plan: History of chronic anemia with baseline Hgb ~ 8-10 Hgb 8.6 today No signs of bleeding, monitor CBC (9) DM type 1 (diabetes mellitus, type 1): Plan: Hgb A1c 9.1 10/2021 Lantus and NovoLog per protocol while hospitalized (10) Seizure disorder: Plan: Controlled, continue Keppra (11) Chronic pain: Plan: On fentanyl patch and PO Dilaudid at home (12) COPD (chronic obstructive pulmonary disease): Plan: No signs of acute exacerbation, continue home inhalers (13) DVT prophylaxis: Plan: SQ heparin History of Present Illness Chief Complaint: Nausea, vomiting Primary Care Provider: Juan Lamb MD 56-year-old male with PMH DM type I, ESRD on HD MWF, history of seizure disorder, chronic pain, diabetic neuropathy, diabetic gastroparesis s/p gastric pacemaker, HTN, non-small cell lung cancer with mets to lymph node and left ribs s/p chemo and radiation, and other problems listed below who presents the ED for evaluation of intractable nausea and vomiting. Patient with history of severe diabetic gastroparesis s/p gastric pacemaker with chronic nausea and vomiting daily. Patient reports acute worsening of his nausea and vomiting last evening. Reports several episodes of vomiting and dry heaves overnight. Denies hematemesis, coffee-ground emesis, bright red bleeding per rectum, dark tarry stools. Patient suffered a mechanical fall about 1 month ago where he landed on his cane in his epigastric/right rib area. Patient reports ongoing right rib pain. Patient denies chest pain and shortness of breath. Reports some intermittent lightheadedness and dizziness however no syncopal event. No other recent illnesses, fevers, chills. Patient reports he continues to make a small amount of urine. On presentation, patient was significantly hypertensive with BP 234/130, improved with IV labetalol and IV hydralazine. Patient also received a dose of Emend and reports improvement in nausea and vomiting. CT ABD/pelvis shows question gastric wall thickening, Subacute right anterior rib fractures, evidence of progressive osseous metastatic disease involving the left ribs as compared to the 07/03/2021 examination. Allergies Allergy/AdvReac Type Severity Reaction Status Date / Time bee venom protein (honey bee) Allergy Severe Swelling Verified 11/12/21 00:46 at site, SOB cat dander Allergy Unknown Unknown Verified 11/12/21 00:46 Penicillins Allergy Unknown Amoxicillin- Verified 11/12/21 00:46 "since " Home Medications Medication Instructions Recorded Confirmed Type blood sugar diagnostic 04/26/21 12/18/21 History flash glucose sensor (FreeStyle 04/26/21 12/18/21 History Amparo 14 Day Sensor kit) gabapentin 400 mg capsule 400 mg PO TID 04/26/21 12/18/21 History insulin glargine 100 unit/mL (3 7 unit subcut QPM 04/26/21 12/18/21 History mL) subcutaneous pen (Lantus Solostar U-100 Insulin) clonidine 0.2 mg/24 hr weekly 0.2 mg transdermal FR 06/30/21 12/18/21 History transdermal patch albuterol sulfate 90 mcg/actuation 2 puff inhalation Q4H PRN 07/22/21 12/18/21 Rx aerosol inhaler (Ventolin HFA) Shortness Of Breath #1 inhaler glucagon 1 mg solution for 1 mg IM ONCE PRN Hypoglycemia #1 ea 07/22/21 12/18/21 Rx injection levetiracetam 750 mg tablet 750 mg PO BID #30 tabs 07/22/21 12/18/21 Rx (Keppra) lisinopril 40 mg tablet 40 mg PO QAM 09/29/21 12/18/21 History omeprazole 40 mg capsule,delayed 40 mg PO QAM 09/29/21 12/18/21 History release Probiotic 1 tab PO DAILY 10/20/21 12/18/21 History fluticasone 250 mcg-salmeterol 50 1 inh inhalation DAILY 10/20/21 12/18/21 History mcg/dose blistr powdr for inhalation metoclopramide HCl 10 mg tablet 10 mg PO TID PRN Nausea 10/20/21 12/18/21 History fentanyl 75 mcg/hr transdermal 75 mcg transdermal Q72H #3 ea 10/24/21 12/18/21 Rx patch amlodipine 10 mg tablet 10 mg PO DAILY 12/18/21 12/18/21 History hydromorphone 2 mg tablet 2 mg PO Q4H PRN Pain 12/18/21 12/18/21 History insulin aspart U-100 100 unit/mL 1 sliding scale dose subcut ACHS 12/18/21 12/18/21 History (3 mL) subcutaneous pen (Novolog Flexpen U-100 Insulin aspart) meclizine 12.5 mg tablet 12.5 mg PO TID PRN Dizziness 12/18/21 12/18/21 History olanzapine 2.5 mg tablet 2.5 mg PO HS 12/18/21 12/18/21 History ondansetron 4 mg disintegrating 4 mg PO Q8H PRN Nausea 12/18/21 12/18/21 History tablet Past Med/Surg History Medical History Anemia Chronic pain COPD (chronic obstructive pulmonary disease) Diabetic gastroparesis DM type 1 (diabetes mellitus, type 1) Enlarged prostate ESRD (end stage renal disease) on dialysis Gastroparesis s/p gastric stimulator History of Crohn's disease HTN (hypertension) Lung cancer Dx 2016 [place]; + hilar nodes; s/p left upper lobectomy + chemo Neurogenic bladder On home oxygen therapy 2L/min NC PRN (no use x 1+ months) Orthostatic hypotension Primary cancer of left lung metastatic to other site Seizure disorder Hx grand mal seizures, no seizures x1+ years Surgical History H/O colonoscopy H/O esophagogastroduodenoscopy History of cholecystectomy History of knee surgery LEFT X 17/RIGHT X 2 History of tonsillectomy and adenoidectomy Hx of total knee arthroplasty S/P lobectomy of lung SHAWN Status post insertion of intrathecal pump explanted Family History Mother Diabetes Dementia Father Hypertension Diabetes Sister Crohn's disease Social History Smoking Status: Former smoker Tobacco Type: Cigarettes Second Hand Exposure: No; Do You Dip or Chew Tobacco: Yes; Hx Alcohol Use: No Hx Substance Use: No Preferred Language: Mohawk Communication Ability: Effective Visual Impairment: No 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 Beliefs That Will Affect Care: None marital status: Single Current Living Situation: Alone Current Living Situation Comment: has family close by and available to assist current occupational status: disabled How many Children do You have: 5 Other Information That Helps Us Care for You: No Feels Safe at Home: Yes Safety Concerns: Feels Safe At This Time Diet Comment: Carb counting caffeine: No Physical Activity Frequency: Does not Exercise Physical Activity Frequency Comment: walks when able Assistive Devices: Oxygen - Continuous and Walker Review of Systems Review of Systems: ROS per HPI, all other systems reviewed and negative Physical Exam Constitutional: WD/WN, vitals as above Eyes: PERRL, conjunctivae normal, anicteric sclerae ENMT: external ear and nose normal, oropharynx normal Respiratory: normal respiratory effort; no respiratory distress Auscultation: + diminished lung sounds (BL) Cardiovascular: Rate/Rhythm: regular rate and regular rhythm Vessels: normal peripheral pulses Extremities: no edema Gastrointestinal (Abdomen): Inspection/Auscultation: abdomen not distended and + abnormal bowel sounds (hypoactive) Percussion/Palpation: + abdomen tender (Globally tender to palpation, most pronounced in the epigastric area) and abdomen soft; no hepatosplenomegaly Musculoskeletal: no cyanosis or clubbing, extremities motor strength 5/5 Skin: no rashes, warm and dry Neurologic: PERRL, EOMI, accommodation nl, no face palsy, no dysarthria Psychiatric: A+Ox3, euthymic affect Results & Data Results & Data ([facility]) Vital Signs (Past 12 Hours) Vital Signs Temp Pulse Pulse Resp BP BP Pulse Ox 12/18/21 08:42 82 18 190/112 H 100 12/18/21 08:00 171/99 H 12/18/21 07:37 80 14 187/103 H 100 12/18/21 07:02 85 16 175/97 H 100 12/18/21 06:54 83 18 204/109 H 97 12/18/21 06:33 101 H 234/130 H 100 12/18/21 05:33 36.8 C 100 H 20 218/114 H 100 O2 Del Method O2 Flow Rate 12/18/21 08:42 Room Air 12/18/21 08:00 12/18/21 07:37 Nasal Cannula 2 12/18/21 07:02 Nasal Cannula 12/18/21 06:54 Room Air 12/18/21 06:33 Room Air 12/18/21 05:33 Room Air Laboratory Results Short CBC 12/18/21 Range/Units 05:52 WBC 9.30 (4.8-10.8) K/ul Hgb 8.6 L (14.0-18.0) g/dl Hct 27.3 L (40.1-51.0) % Plt Count 347 (130-400) K/uL BMP 12/18/21 05:52 Sodium 131 L Potassium 4.4 Chloride 94 L Carbon Dioxide 20 L BUN 41 H Creatinine 8.22 H* Glucose 204 H Calcium 8.3 L Liver Function 12/18/21 Range/Units 05:52 Total Bilirubin 0.4 (0.2-1.0) mg/dl AST 8 L (13-39) U/L ALT 7 (7-52) U/L Alkaline Phosphatase 117 H (34-104) U/L Albumin 3.7 (3.4-5.0) gm/dl Diagnostic Findings Abdomen/Pelvis CT 12/18/21 05:52 CT SCAN OF THE ABDOMEN AND PELVIS WITHOUT IV CONTRAST CLINICAL HISTORY: Epigastric abdominal pain. Vomiting. History of lung cancer. COMPARISON STUDY: Abdominal CT dated 07/03/2021. TECHNIQUE: CT scan of the abdomen and pelvis is performed from the lung bases to the proximal femora. Images are reviewed in the axial, sagittal, and coronal planes. IV contrast was not administered for this examination. Note that the examination is suboptimal without oral and IV contrast. A dose lowering technique was utilized adhering to the principles of ALARA. CT DOSE: 332.15 mGy.cm FINDINGS: Lung bases: The time of the central venous catheter terminates at the cavoatrial junction. The heart is top normal in size and without pericardial effusion. There are coronary artery calcifications. A small hiatal hernia is observed. There is trace left pleural effusion with bibasilar scarring/atelectasis. A 4 mm pleural-based nodule at the right lung base on image #44 and a 3 mm pleural- based nodule at the right lung base on image #56 are unchanged from previous. There is no airspace consolidation typical for pneumonia. Liver: The unenhanced liver is normal in size, contour, and attenuation. There is no intrahepatic biliary ductal dilatation. Gallbladder: Surgically absent noting clips in the gallbladder fossa. Spleen: Normal in size and attenuation. Pancreas: The unenhanced pancreas is atrophic and grossly unremarkable. 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 The left adrenal gland is normal in appearance. Kidneys: The unenhanced kidneys are normal in size and without hydronephrosis. There are no renal calculi identified. There is no evidence of contour deforming renal mass lesion. Abdominal vasculature: The abdominal aorta is normal in course and caliber noting mild to moderate atherosclerotic calcification. Stomach and bowel: Postoperative change is noted in the stomach with gastric leads in place. Question gastric wall thickening. There is no bowel obstruction. Moderate fecal retention is seen throughout the colon. The appendix is dilated but unchanged from prior studies. There is no CT evidence of acute appendicitis. Peritoneum: There is no intraperitoneal free air or abdominal ascites. A gastric stimulator device is present in the left lower quadrant abdominal wall. Lymphadenopathy: There are mildly enlarged retroperitoneal lymph nodes which measure up to 11 mm in short axis. Pelvic viscera: The bladder wall appears circumferentially thickened. The prostate and seminal vesicles are normal as visualized. Skeletal structures: There are subacute right anterior 5th and 6rth rib fractures. There are permeative destructive lesions of the left 8th and 9th ribs. The 8th rib lesion is new from previous. Additional tiny osteolytic lesions are suggested in the bony pelvis. IMPRESSION: 1. Significantly suboptimal examination without oral and IV contrast. 2. The bladder wall appears circumferentially thickened. Correlate with clinical findings and urinalysis. 3. Question gastric wall thickening. This is not well assessed by CT and clinical correlation will be required. If warranted this could be further assessed with endoscopy. 4. Subacute right anterior rib fractures as above. 5. There is evidence of progressive osseous metastatic disease involving the left ribs as compared to the 07/03/2021 examination. 6. Trace left pleural effusion. 7. Moderate constipation. 8. Mildly enlarged retroperitoneal lymph nodes are similar to previous. 9. Additional findings as above. ACT 112: Negative or not required by law. Electronically signed by: Russell Ty M.D. 12/18/2021 7:55 AM Code Status & VTE Plan Code Status Patient is a full code as per my discussion with him. VTE Prophylaxis Plan VTE Prophylaxis will be ordered: Yes Supervising Physician Co-Signing Physician Notes .Attending Addendum: care coordinated with LINDSAY Mercado please refer to her notes for full details, I agree with her notes patient seen and examined, records reviewed by myself as well on exam, patient seen resting in bed, comfortable HD in progress denies active chest pain, abdominal pain no other symptoms VS noted and reviewed oriented x 3, not in distress, speaks in sentences with no effort nor accessory muscle use normal rate, regular rhythm, no murmurs clear breath sounds bilaterally non distended, soft, nontender no bipedal edema, erythema, warmth no neuro deficits all labs noted and reviewed ASSESSMENT AND PLAN> GASTROPARESIS FLARE UP no obstruction on CT abdomen/pelvis scheduled Zofran, Reglan monitor QTc GI consulted SUBACUTE RIB FRACTURES Pain control, Incentive spirometer other diagnoses and plan of care as per LINDSAY Mercado notes Antonino Car MD (1) Anemia Anemia type: unspecified type Qualified Code(s): D64.9 - Anemia, unspecified
[2021-12-18] MEDS ORDERED: ACETAMINOPHEN 325 MG TAB PO PRN (09:56)
[2021-12-18] MEDS ORDERED: GLUCOSE 10 TAB/TUBE PO PRN (09:56)
[2021-12-18] MEDS ORDERED: GLUCOSE 40% GEL 15 GM TUBE PO PRN (09:56)
[2021-12-18] MEDS ORDERED: hydrALAZINE HCL 20 MG/ML VIAL IV PRN (09:56)
[2021-12-18] MEDS ORDERED: CARBOHYDRATES FOR HYPOGLYCEMIA PO PRN (09:56)
[2021-12-18] MEDS ORDERED: DEXTROSE 50% 50 ML SYRINGE IV PRN (09:56)
[2021-12-18] MEDS ORDERED: GLUCAGON FOR INJ 1 MG VIAL SQ PRN (09:56)
[2021-12-18] MEDS ORDERED: ONDANSETRON INJ 2 MG/ML 2 ML VIAL IV PRN (09:56)
[2021-12-18] MEDS ORDERED: MoRPHine SULFATE 4 MG/ML 1 ML CARP\\VIAL IV PRN (09:56)
[2021-12-18] MEDS: ONDANSETRON INJ 2 MG/ML 2 ML VIAL IV SCH ×2 (11:57→18:57)
[2021-12-18] MEDS: LIDOCAINE 5% 1 PATCH TD SCH (11:58)
[2021-12-18] MEDS: amLODIPine BESYLATE 5 MG TAB PO SCH (11:58)
[2021-12-18] MEDS: METOCLOPRAMIDE HCL INJ 5 MG/ML 2 ML VIAL IV SCH ×2 (11:58→18:58)
[2021-12-18] MEDS: ACETAMINOPHEN 325 MG TAB PO SCH ×2 (11:59→18:28)
[2021-12-18] MEDS: DOCUSATE SODIUM 100 MG CAP PO SCH ×2 (11:59→21:14)
[2021-12-18] MEDS: POLYETHYLENE (MIRALAX) 17 GM PACK PO SCH ×2 (11:59→21:09)
[2021-12-18] MEDS ORDERED: SODIUM CHLORIDE 0.9% 1000ML 1,000 ML IV PRN (12:28)
[2021-12-18] MEDS: INSULIN ASPART PER UNIT SC SCH ×3 (12:40→21:13)
[2021-12-18] MEDS: PANTOprazole 40 MG in SYRINGE 0 ML IV SCH ×2 (12:41→21:07)
[2021-12-18] MEDS ORDERED: HEPARIN SOD (PORCINE) 1000 UNIT/ML IV ONE (12:45)
[2021-12-18] MEDS: HEPARIN SOD 5,000 UNIT/0.5 ML VIAL SQ SCH ×2 (13:53→21:08)
[2021-12-18] MEDS: GABAPENTIN 400 MG CAP PO SCH ×2 (13:53→21:06)
[2021-12-18] MEDS ORDERED: METOCLOPRAMIDE HCL 10 MG TABLET PO SCH (14:00)
[2021-12-18] MEDS: CHECK CLONIDINE PATCH PLACEMENT SCH ×2 (16:13→22:42)
[2021-12-18] MEDS: CHECK fentaNYL PATCH PLACEMENT SCH ×2 (16:14→22:43)
[2021-12-18] MEDS: HEPARIN SOD (PORCINE) 1000 UNIT/ML IV SCH (18:27)
[2021-12-18] MEDS ORDERED: LANTUS PER UNIT CHARGE SQ SCH (21:00)
[2021-12-18] MEDS ORDERED: OLANZAPINE 2.5 MG TAB PO SCH (21:00)
--- NOTE | 2021-12-18 21:35 | Nephrology Consultation ---
Date of Consultation December 18, 2021 Assessment & Plan (1) ESRD (end stage renal disease) on dialysis: ESRD on MWF HD via [facility] had non emergent HD today adn tolerated 3L UF also hx of neurogenic bladder > monitor for need for straight cath not an epo candidate d/t active lung ca next HD on 12/20 or as needs dictate control bp w/ pain /GI symptom control History of Present Illness Reason for Consultation: ESRD on HD Requesting Physician: Dr Car Attending Physician: Antonino Car MD History of Present Illness 56 y/o M w/ ESRD whom I'm asked to follow for dialysis needs was admitted today for management of intractable N/ non bloody vomiting and abdominal pain. He dialyzes MWF at [place] under Dr Barajas's care via [facility]. Denies missed treatments recently. PMH also includes non-small cell lung cancer status post surgery, chemo, radiation with mets to bone, insulin-dependent T2DM, seizure disorder, gastroparesis status post gastric stimulator placement. Last admission here was in October for seizures, altered MS. He denies edema or chest pain/pressure or confusion/ recent seizure. voids most days. No leg swelling. GI saw him and recommends NPO status for now until sx improve and conversion po meds to IV. Allergies Allergy/AdvReac Type Severity Reaction Status Date / Time bee venom protein (honey bee) Allergy Severe Swelling Verified 11/12/21 00:46 at site, SOB cat dander Allergy Unknown Unknown Verified 11/12/21 00:46 Penicillins Allergy Unknown Amoxicillin- Verified 11/12/21 00:46 "since " Home Medications Medication Instructions Recorded Confirmed Type blood sugar diagnostic 04/26/21 12/18/21 History flash glucose sensor (FreeStyle 04/26/21 12/18/21 History Amparo 14 Day Sensor kit) gabapentin 400 mg capsule 400 mg PO TID 04/26/21 12/18/21 History insulin glargine 100 unit/mL (3 7 unit subcut QPM 04/26/21 12/18/21 History mL) subcutaneous pen (Lantus Solostar U-100 Insulin) clonidine 0.2 mg/24 hr weekly 0.2 mg transdermal FR 06/30/21 12/18/21 History transdermal patch albuterol sulfate 90 mcg/actuation 2 puff inhalation Q4H PRN 07/22/21 12/18/21 Rx aerosol inhaler (Ventolin HFA) Shortness Of Breath #1 inhaler glucagon 1 mg solution for 1 mg IM ONCE PRN Hypoglycemia #1 ea 07/22/21 12/18/21 Rx injection levetiracetam 750 mg tablet 750 mg PO BID #30 tabs 07/22/21 12/18/21 Rx (Keppra) lisinopril 40 mg tablet 40 mg PO QAM 09/29/21 12/18/21 History omeprazole 40 mg capsule,delayed 40 mg PO QAM 09/29/21 12/18/21 History release Probiotic 1 tab PO DAILY 10/20/21 12/18/21 History fluticasone 250 mcg-salmeterol 50 1 inh inhalation DAILY 10/20/21 12/18/21 History mcg/dose blistr powdr for inhalation metoclopramide HCl 10 mg tablet 10 mg PO TID PRN Nausea 10/20/21 12/18/21 History fentanyl 75 mcg/hr transdermal 75 mcg transdermal Q72H #3 ea 10/24/21 12/18/21 Rx patch amlodipine 10 mg tablet 10 mg PO DAILY 12/18/21 12/18/21 History hydromorphone 2 mg tablet 2 mg PO Q4H PRN Pain 12/18/21 12/18/21 History insulin aspart U-100 100 unit/mL 1 sliding scale dose subcut ACHS 12/18/21 12/18/21 History (3 mL) subcutaneous pen (Novolog Flexpen U-100 Insulin aspart) meclizine 12.5 mg tablet 12.5 mg PO TID PRN Dizziness 12/18/21 12/18/21 History olanzapine 2.5 mg tablet 2.5 mg PO HS 12/18/21 12/18/21 History ondansetron 4 mg disintegrating 4 mg PO Q8H PRN Nausea 12/18/21 12/18/21 History tablet Patient History Medical History Anemia Chronic pain COPD (chronic obstructive pulmonary disease) Diabetic gastroparesis DM type 1 (diabetes mellitus, type 1) Enlarged prostate ESRD (end stage renal disease) on dialysis Gastroparesis s/p gastric stimulator History of Crohn's disease HTN (hypertension) Lung cancer Dx 2016 [place]; + hilar nodes; s/p left upper lobectomy + chemo Neurogenic bladder On home oxygen therapy 2L/min NC PRN (no use x 1+ months) Orthostatic hypotension Primary cancer of left lung metastatic to other site Seizure disorder Hx grand mal seizures, no seizures x1+ years Surgical History H/O colonoscopy H/O esophagogastroduodenoscopy History of cholecystectomy History of knee surgery LEFT X 17/RIGHT X 2 History of tonsillectomy and adenoidectomy Hx of total knee arthroplasty S/P lobectomy of lung SHAWN Status post insertion of intrathecal pump explanted Family History Mother Diabetes Dementia Father Hypertension Diabetes Sister Crohn's disease Social History Smoking Status: Former smoker Tobacco Type: Cigarettes Second Hand Exposure: No; Do You Dip or Chew Tobacco: Yes; Hx Alcohol Use: No Hx Substance Use: No Preferred Language: Mongolian Communication Ability: Effective Visual Impairment: No Limitations Flarer Required: No Beliefs That Will Affect Care: None marital status: Single Current Living Situation: Alone Current Living Situation Comment: has family close by and available to assist current occupational status: disabled How many Children do You have: 5 Other Information That Helps Us Care for You: No Feels Safe at Home: Yes Safety Concerns: Feels Safe At This Time Diet Comment: Carb counting caffeine: No Physical Activity Frequency: Does not Exercise Physical Activity Frequency Comment: walks when able Assistive Devices: Glasses and Walker Review of Systems Review of Systems: All systems reviewed & are unremarkable except as noted in HPI & below Physical Exam Constitutional: well developed, + frail appearing and cooperative Eyes: EOM intact bilaterally ENMT: Ears: no external ear abnormality Nose: no external nose abnormality Mouth: + dry oral mucous membranes Neck: no nuchal rigidity Respiratory: normal respiratory effort Auscultation: lungs clear to auscultation bilaterally and + diminished lung sounds Cardiovascular: Rate/Rhythm: + tachycardic Extremities: no edema Gastrointestinal (Abdomen): Inspection/Auscultation: normal bowel sounds Percussion/Palpation: abdomen soft; abdomen nontender Musculoskeletal: Extremities: strength 5/5 throughout Skin: no rashes, warm and dry Neurologic: villarreal, fluent speech, no tremor Psychiatric: Orientation: oriented x 3 Speech: normal rate/rhythm/volume of speech Results & Data ([facility]) Vital Signs (Past 12 Hours) Vital Signs Temp Pulse Pulse Pulse Resp BP BP 12/18/21 20:50 12/18/21 20:50 36.6 C 95 H 20 167/84 H 12/18/21 16:45 76 142/87 H 12/18/21 16:30 76 160/92 H 12/18/21 16:15 75 147/90 H 12/18/21 16:00 75 136/83 12/18/21 16:58 36.6 C 78 174/93 H 12/18/21 14:56 70 154/87 H 12/18/21 15:30 74 117/73 12/18/21 15:23 75 113/71 12/18/21 15:15 75 101/62 12/18/21 14:45 80 129/80 12/18/21 15:00 73 141/82 H 12/18/21 14:30 73 116/45 L 12/18/21 13:45 76 126/78 12/18/21 14:15 76 128/75 12/18/21 14:00 76 120/73 12/18/21 13:30 76 173/102 H 12/18/21 13:23 75 166/94 H 12/18/21 13:23 36.0 C L 79 12/18/21 10:45 81 18 177/103 H 12/18/21 10:33 12/18/21 10:33 86 20 224/118 H Pulse Ox O2 Del Method O2 Flow Rate 12/18/21 20:50 Room Air 12/18/21 20:50 99 Room Air 12/18/21 16:45 12/18/21 16:30 12/18/21 16:15 12/18/21 16:00 12/18/21 16:58 12/18/21 14:56 12/18/21 15:30 12/18/21 15:23 12/18/21 15:15 12/18/21 14:45 12/18/21 15:00 12/18/21 14:30 12/18/21 13:45 12/18/21 14:15 12/18/21 14:00 12/18/21 13:30 12/18/21 13:23 12/18/21 13:23 12/18/21 10:45 95 Room Air 12/18/21 10:33 Nasal Cannula 12/18/21 10:33 95 Nasal Cannula 2 Laboratory Results 12/18/21 05:52 12/18/21 05:52 Diagnostic Findings admission
[2021-12-18] MEDS: HYDROmorphone HCL 2 MG TAB PO PRN (21:39)
[2021-12-18] MEDS: levETIRAcetam 250 MG TAB PO SCH (21:50)
[2021-12-19] MEDS: ACETAMINOPHEN 325 MG TAB PO SCH ×3 (02:39→17:32)
[2021-12-19] MEDS: HYDROmorphone HCL 2 MG TAB PO PRN ×4 (02:40→17:31)
[2021-12-19] MEDS: HEPARIN SOD 5,000 UNIT/0.5 ML VIAL SQ SCH ×2 (02:40→13:00)
[2021-12-19] MEDS: ONDANSETRON INJ 2 MG/ML 2 ML VIAL IV SCH ×3 (02:40→17:32)
[2021-12-19] MEDS: METOCLOPRAMIDE HCL INJ 5 MG/ML 2 ML VIAL IV SCH ×3 (02:40→17:32)
[2021-12-19] MEDS ORDERED: fentaNYL 75 MCG/HR TDSY TD SCH (08:00)
[2021-12-19 08:43] LABS: Hematocrit (blood only) 28.4 % (40.1-51.0); Hemoglobin 8.9 g/dl (14.0-18.0); Mean Corpuscular Hemoglobin 28.9 pg (25.0-34.0); Mean Corpuscular Hgb Conc 31.3 g/dL (32.0-36.0); Mean Corpuscular Volume 92.2 fL (80.0-100.0); Mean Platelet Volume 9.6 fL (9.4-12.4); Platelet Count 341 K/uL (130-400); RDW Coefficient of Variation 14.5 % (11.5-14.5); RDW Standard Deviation 47.4 fL (36.4-46.3); Red Blood Count 3.08 M/uL (4.63-6.08); White Blood Count 4.55 K/ul (4.8-10.8)
[2021-12-19] MEDS ORDERED: FLUTICASONE/VILANTEROL 100/25MCG 14 PUFFS/INHALER INH SCH (09:00)
[2021-12-19] MEDS ORDERED: lisinopril 40 MG TAB PO SCH (09:00)
[2021-12-19] MEDS: INSULIN ASPART PER UNIT SC SCH ×3 (09:04→17:09)
[2021-12-19] MEDS: CHECK CLONIDINE PATCH PLACEMENT SCH ×2 (09:05→16:01)
[2021-12-19] MEDS: CHECK fentaNYL PATCH PLACEMENT SCH ×2 (09:07→16:01)
[2021-12-19] MEDS: GABAPENTIN 400 MG CAP PO SCH ×2 (09:09→13:00)
[2021-12-19] MEDS: levETIRAcetam 250 MG TAB PO SCH (09:09)
[2021-12-19] MEDS: amLODIPine BESYLATE 5 MG TAB PO SCH (09:09)
[2021-12-19] MEDS: DOCUSATE SODIUM 100 MG CAP PO SCH (09:10)
[2021-12-19] MEDS: LIDOCAINE 5% 1 PATCH TD SCH (09:10)
[2021-12-19] MEDS: PANTOprazole 40 MG in SYRINGE 0 ML IV SCH (09:11)
[2021-12-19 09:12] LABS: Potassium 4.3 mmol/L (3.5-5.1)
[2021-12-19] MEDS: POLYETHYLENE (MIRALAX) 17 GM PACK PO SCH (09:12)
[2021-12-19 09:13] LABS: BUN Creatinine Ratio 4.2 (10-20); Calcium 8.1 mg/dl (8.5-10.1); Creatinine Clr Calc Pharmacy 16.7 ml/min; Est GFR (African American) 14.6 ml/min; Est GFR (Non-African American) 12.6 ml/min; Magnesium 1.9 mg/dl (1.7-2.4); Phosphorus 6.3 mg/dl (2.5-4.9)
--- NOTE | 2021-12-19 16:07 | Discharge Summary ---
Date of Service December 19, 2021 Admission HPI Per Admitting Provider 56-year-old male with PMH DM type I, ESRD on HD MWF, history of seizure disorder, chronic pain, diabetic neuropathy, diabetic gastroparesis s/p gastric pacemaker, HTN, non-small cell lung cancer with mets to lymph node and left ribs s/p chemo and radiation, and other problems listed below who presents the ED for evaluation of intractable nausea and vomiting. Patient with history of severe diabetic gastroparesis s/p gastric pacemaker with chronic nausea and vomiting daily. Patient reports acute worsening of his nausea and vomiting last evening. Reports several episodes of vomiting and dry heaves overnight. Denies hematemesis, coffee-ground emesis, bright red bleeding per rectum, dark tarry stools. Patient suffered a mechanical fall about 1 month ago where he landed on his cane in his epigastric/right rib area. Patient reports ongoing right rib pain. Patient denies chest pain and shortness of breath. Reports some intermittent lightheadedness and dizziness however no syncopal event. No other recent illnesses, fevers, chills. Patient reports he continues to make a small amount of urine. On presentation, patient was significantly hypertensive with BP 234/130, improved with IV labetalol and IV hydralazine. Patient also received a dose of Emend and reports improvement in nausea and vomiting. CT ABD/pelvis shows question gastric wall thickening, Subacute right anterior rib fractures, evidence of progressive osseous metastatic disease involving the left ribs as compared to the 07/03/2021 examination. Admission Exam Per Admitting Provider Constitutional: WD/WN, vitals as above Eyes: PERRL, conjunctivae normal, anicteric sclerae ENMT: external ear and nose normal, oropharynx normal Respiratory: normal respiratory effort; no respiratory distress Auscultation: + diminished lung sounds (BL) Cardiovascular: Rate/Rhythm: regular rate and regular rhythm Vessels: normal peripheral pulses Extremities: no edema Gastrointestinal (Abdomen): Inspection/Auscultation: abdomen not distended and + abnormal bowel sounds (hypoactive) Percussion/Palpation: + abdomen tender (Globally tender to palpation, most pronounced in the epigastric area) and abdomen soft; no hepatosplenomegaly Musculoskeletal: no cyanosis or clubbing, extremities motor strength 5/5 Skin: no rashes, warm and dry Neurologic: PERRL, EOMI, accommodation nl, no face palsy, no dysarthria Psychiatric: A+Ox3, euthymic affect Principal Diagnosis Intractable nausea and vomiting on the background of gastroparesis Hypertensive urgency secondary to inability to take p.o. meds Discharge Exam GENERAL: Alert and oriented x3. NAD, on RA. HEENT: No pallor, no icterus. Pupils equal, round and reactive to light. Oral mucosa moist. NECK: No JVD, no neck masses. HEART: S1 and S2 heard. Regular rate and rhythm. No murmur, no gallop. Rt chest w/ TDC and Lt chest w/ A-port noted w/o s/s of infection. RESPIRATORY SYSTEM: Normal AP diameter. No accessory muscle use. No wheezing, no crackles. ABDOMEN: Soft, bowel sounds present, nontender, no distention. gastric pacer palpated left lower belly. CENTRAL NERVOUS SYSTEM: No facial droop. Speech is clear. Obeys simple commands. Moves extremities. EXTREMITIES: No edema, no erythema seen. Discharge Data Allergies Allergy/AdvReac Type Severity Reaction Status Date / Time bee venom protein (honey bee) Allergy Severe Swelling Verified 11/12/21 00:46 at site, SOB cat dander Allergy Unknown Unknown Verified 11/12/21 00:46 Penicillins Allergy Unknown Amoxicillin- Verified 11/12/21 00:46 "since " Consultations 12/18/21 08:19 ED Decision to Admit Stat 12/18/21 09:56 Consult Gastroenterology Routine Consult Nephrology Routine Ordered Studies 12/18/21 05:52 CT abd pelvis wo con Stat Hospital Course (1) Intractable nausea and vomiting: (2) Gastroparesis: (3) Gastritis: Patient presenting from home with reports of intractable nausea and vomiting. History of severe gastroparesis s/p gastric pacemaker. Patient reports he struggles with nausea and vomiting on a daily basis. EGD 02/2021-LA grade D esophagitis, superficial distal esophageal ulceration, normal duodenal bulb and second portion of duodenum CT ABD/pelvis shows possible gastric wall thickening, moderate constipation Received a dose of Emend in the ED with improvement in N/V Patient reports improvement in his nausea and vomiting back to his baseline today and is tolerating diet. Possible discharge later in the evening. Discussed with GI, okay with discharge from their point of view. Patient to continue with current home medication. Patient to maintain follow-up with outpatient GI doctor. (4) Hypertensive urgency: BP 234/130 on presentation Likely due to inability to take p.o. meds Patient now tolerating p.o. intake, continue home meds. Blood pressure fairly well controlled. (5) Rib fractures: CT shows subacute right anterior 5th and 6rth rib fractures Scheduled Tylenol, Lidoderm patch, incentive spirometer (6) Primary cancer of left lung metastatic to other site: History of non-small cell lung cancer with mets to left ribs S/p chemo and radiation CT scan today shows evidence of progressive osseous metastatic disease involving the left ribs as compared to the 07/03/[address] Lion Keith -- has appt scheduled on 12/21 (7) ESRD (end stage renal disease) on dialysis: HD MWF Electrolytes and volume status acceptable Has vascular surgery appointment tomorrow for dialysis catheter. (8) Anemia: History of chronic anemia with baseline Hgb ~ 8-10 Hemoglobin stable. No signs of bleeding, monitor CBC (9) DM type 1 (diabetes mellitus, type 1): Hgb A1c 9.1 10/2021 Lantus and NovoLog per protocol while hospitalized Patient with low blood glucose here due to tight glycemic control --> laxed glycemic control. Blood glucose more stable now. Patient to follow-up with PCP closely for his ongoing diabetes management. (10) Seizure disorder: Controlled, continue Keppra (11) Chronic pain: On fentanyl patch and PO Dilaudid at home (12) COPD (chronic obstructive pulmonary disease): No signs of acute exacerbation, continue home inhalers (13) DVT prophylaxis: SQ heparin Plan Patient would like to go home as he has appointment tomorrow with vascular surgery and day after tomorrow with oncology which he does not want to miss. Patient reports improvement in his nausea and vomiting back to his baseline. He is being discharged to home with following instructions at the point of discharge: Follow-up with your primary care physician within 1 week time. Follow-up with vascular surgery as scheduled tomorrow and oncology as scheduled 12/21. Maintain f/u with your GI doctor as outpatient. Get your blood work CBC and CMP done in a week time. Call your primary care office to schedule the test. Take medications as prescribed. Total Time Total Time Spent Total Time Spent (In Minutes): 40 Discharge Plan Discharge Items Patient Disposition: Home - Self-Care Reason For Visit: INTRACTABLE N/V Discharge Diagnosis: Intractable nausea and vomiting on the background of gastroparesis Hypertensive urgency secondary to inability to take p.o. meds Activity: Resume your previous activity Non-emergency contact: Primary Care Provider Call non-emergency contact if: you have any medication questions, your symptoms worsen and your temperature is above 101 Follow-up/Referrals: Juan Lamb MD [Primary Care Provider] - Diet: Carb Consistent or DM2 and Dialysis Renal Addtl Attending Provider Instructions: Follow-up with your primary care physician within 1 week time. Follow-up with vascular surgery as scheduled tomorrow and oncology as scheduled 12/21. Maintain f/u with your GI doctor as outpatient. Get your blood work CBC and CMP done in a week time. Call your primary care office to schedule the test. Take medications as prescribed. Pending Studies at Discharge: No Stand-Alone Forms: My [place], Smoking Cessation Medications and DC Order Prescriptions: Continued gabapentin 400 mg capsule 400 mg PO TID (DME) FreeStyle Amparo 14 Day Sensor Kit See Rx Instructions .Route Rx Instructions: As directed Lantus Solostar U-100 Insulin 100 unit/mL (3 mL) insulin pen 7 unit subcut QPM (DME) blood sugar diagnostic Strip See Rx Instructions .Route Rx Instructions: As directed clonidine 0.2 mg/24 hr patch weekly 0.2 mg transdermal FR Rx Instructions: Change on sat. levetiracetam [Keppra] 750 mg tablet 750 mg PO BID Qty: 30 0RF glucagon 1 mg recon soln 1 mg IM ONCE PRN (Reason: Hypoglycemia) Qty: 1 0RF albuterol sulfate [Ventolin HFA] 90 mcg/actuation Hfa Aerosol Inhaler 2 puff INHALATION Q4H PRN (Reason: Shortness Of Breath) Qty: 1 0RF omeprazole 40 mg capsule,delayed release(DR/EC) 40 mg PO QAM lisinopril 40 mg Tablet 40 mg PO QAM fluticasone propion-salmeterol 250-50 mcg/dose Blister With Device 1 inh INHALATION DAILY metoclopramide HCl 10 mg tablet 10 mg PO TID PRN (Reason: Nausea) Probiotic 1 tab PO DAILY fentanyl 75 mcg/hr Patch 72 Hour 75 mcg transdermal Q72H Qty: 3 0RF Rx Instructions: due sat rudyzine 12.5 mg Tablet 12.5 mg PO TID PRN (Reason: Dizziness) olanzapine 2.5 mg tablet 2.5 mg PO HS hydromorphone 2 mg tablet 2 mg PO Q4H PRN (Reason: Pain) amlodipine 10 mg tablet 10 mg PO DAILY ondansetron 4 mg Tablet,Disintegrating 4 mg PO Q8H PRN (Reason: Nausea) insulin aspart U-100 [Novolog Flexpen U-100 Insulin] 100 unit/mL (3 mL) insulin pen 1 sliding scale dose SUBCUT ACHS Discharge Orders: Discharge Order (Routine); Ordered 12/19/21 Ordered By: Abhishek Meier Admission Data Admit Date/Time: 12/18/21 08:38 Attending Provider: Abhishek Meier Admit Provider: Antonino Car Primary Care Provider: Juan Lamb Other Providers: Antonino Car ; Adalberto Varma ; Norma Lord
== END 2021-12-19 18:16 | disposition home or self-care (01) ==
LOC: ED 05:30 → EDINP 05:30 → SUATTDRO 08:38 → 2W 20:36

== ENCOUNTER 2022-01-03 16:09 | Inpatient (IN) ==
[2022-01-03 16:54] LABS: Basophils # (auto) 0.04 K/uL (0-0.2); Basophils % (auto) 0.6 %; Eosinophils # (auto) 0.11 K/uL (0-0.50); Eosinophils % (auto) 1.6 %; Hematocrit (blood only) 24.9 % (40.1-51.0); Hemoglobin 7.9 g/dl (14.0-18.0); Immature Granulocytes # (auto) 0.02 K/uL (0.00-0.02); Immature Granulocytes % (auto) 0.3 %; Lymphocytes # (auto) 0.78 K/uL (1.2-3.4); Mean Corpuscular Hgb Conc 31.7 g/dL (32.0-36.0); Mean Corpuscular Volume 91.5 fL (80.0-100.0); Monocytes # (auto) 0.57 K/uL (0.24-0.82); Monocytes % (auto) 8.1 %; Neutrophils # (auto) 5.56 K/uL (1.4-6.5); Neutrophils % (auto) 78.4 %; Platelet Count 302 K/uL (130-400); RDW Coefficient of Variation 13.3 % (11.5-14.5); RDW Standard Deviation 44.6 fL (36.4-46.3); Red Blood Count 2.72 M/uL (4.63-6.08); White Blood Count 7.08 K/ul (4.8-10.8)
[2022-01-03 17:05] LABS: INR 1.1 (0.9-1.1); Partial Thromboplastin Time 27.4 Seconds (21.0-31.0); Prothrombin Time 11.4 Seconds (9.0-12.0)
[2022-01-03 17:14] LABS: Albumin Globulin Ratio 0.9 (0.9-2); Albumin Level 3.4 gm/dl (3.4-5.0); Bilirubin,Total 0.3 mg/dl (0.2-1.0); Creatinine Clr Calc Pharmacy 16.6 ml/min; Est GFR (African American) 14.6 ml/min; Est GFR (Non-African American) 12.6 ml/min; Globulin 3.7 gm/dl (2.5-4.0); Ovalocytes 1+; Potassium 3.9 mmol/L (3.5-5.1); Total Protein 7.1 gm/dl (6.0-8.3)
[2022-01-03 17:18] LABS: Troponin I High Sensitivity 13.6 pg/ml (0-20)
--- NOTE | 2022-01-03 18:08 | XRay Report ---
SINGLE VIEW CHEST CLINICAL HISTORY: Atypical chest pain. FINDINGS: An AP, portable, upright chest radiograph is compared to study dated 12/25/2021 and correlat ed with chest CT dated 07/16/2021. The examination is degraded by portable technique and patient rotat ion. A right internal jugular central venous catheter and a left subclavian central venous infusion port are unchanged in position. The heart is enlarged. The pulmonary vasculature is noncongested. Roxanne pect a trace left pleural effusion. Atelectasis is noted at the lung bases. No airspace consolidation is seen typical for pneumonia. No pneumothorax is seen. The skeletal structures are osteopenic. The bony thorax is grossly intact. IMPRESSION: 1. Cardiomegaly without radiographic evidence of congestive failure. 2. Suspect a trace left pleural effusion. 3. There is no airspace consolidation typical for pneumonia. ACT 112: Negative or not required by law. Electronically signed by: Russell Ty M.D. 01/03/2022 6:07 PM
--- NOTE | 2022-01-03 18:12 | Emergency Department Note ---
Impression & Plan Hypertensive urgency, ESRD (end stage renal disease) on dialysis, Anemia, Lung cancer, Chest pain ED Provider Note NAME: NIKHIL MARTINS AGE: 56 SEX: M : 1965 ARRIVES VIA: Walk-In INFORMANT: [Patient][, ] ED PROVIDER(S): [Meliton Griffin MD] Chief Complaint: Chest pain patient presents due to concern for chest pain which he says since about 2 PM today. Patient describes it as left-sided sharp. Patient did try to take HPI: Medications at home at this did not improve his symptoms. Patient denies any shortness of breath or cough. Patient does have a known history of ESRD does have a permacath which he does receive dialysis Saturday but most recently had dialysis yesterday due to a IV contrasted scan. The patient does have a known history of hypertension and does take his medications but states that his been slightly higher. Patient does have a history of lung cancer for which he is following with Dr. Keith. Patient does not have any active chemo. Patient denies any abdominal pain. Patient has had some associated nausea with 1 episode of vomiting. Patient denies any prior history of heart disease. Patient does have a known history of COPD in addition to his lung cancer. ROS: See HPI for pertinent positives and negatives. A total of 10 systems were reviewed and otherwise negative. Past medical history: See below Surgical history: See below Social history: See below Physical Exam: GENERAL: NAD, [wearing a mask,] non-toxic. EYE EXAM: Normal conjunctiva. PERRL, no anisocoria and EOM's grossly intact w/o pain. NECK: Supple, no nuchal rigidity, no adenopathy, non-tender. No signs of meningismus. FROM of the neck with good chin to chest and neck extension. No stridor. Chest: Permacath in the right chest, left chest with port accessed. LUNGS: Clear to auscultation. Normal chest wall mechanics. HEART: NSR, no MRG. ABDOMEN: Abdomen soft, non-tender, normo-active bowel sounds, no masses, no rebound or guarding. BACK: No CVA TTP. SKIN: No rashes and no bruising. UPPER EXTREMITIES: Upper extremities are grossly normal. LOWER EXTREMITIES: Grossly normal, no edema. NEURO EXAM: A&O x3, cranial nerves II-XII grossly intact, normal speech, moves all 4 extremities. Differential diagnoses: Cardiac ischemia, aortic dissection, pulmonary embolism, pneumothorax, pneumonia, pericarditis, myocarditis, esophageal rupture, GERD, cholecystitis, pancreatitis, musculoskeletal, as well as other pathologies. Course: Patient was seen and evaluated the bedside. Full history physical exam was performed. EKG interpreted by me Normal sinus rhythm, rate of 74, normal [place] and QRS, left axis deviation, no obvious ST elevations. Imaging Studies: See Below Cardiac monitoring: An order was placed for continuous cardiac monitoring. The monitor shows a rate of 77 with sinus rhythm. MDM: Patient has a normal white count mild anemia hemoglobin is 7.9 chronic and stable. Patient's kidney function does show an elevated creatinine but normal given the patient's prior history of ESRD. Potassium is normal. Mild hyponatremia. Calcium is low. Patient was given IV hydralazine as well as pain medication. The patient did have mild improvement in symptoms but this was fleeting. Patient is persistently hypertensive and given the patient's prior history with the patient may benefit from inpatient treatment. I did speak with Dr. Chinchilla and the patient was admitted to the medicine service. Past Med/Surg History Medical History Anemia Cancer lymph nodes - recent dx- 10/2021 follows w/ dr jane [place] [facility] Chronic pain COPD (chronic obstructive pulmonary disease) Diabetic gastroparesis DM type 1 (diabetes mellitus, type 1) Enlarged prostate ESRD (end stage renal disease) on dialysis Gastroparesis s/p gastric stimulator History of Crohn's disease HTN (hypertension) Lung cancer Dx 2015 [facility]; + hilar nodes; s/p left upper lobectomy + chemo Neurogenic bladder On home oxygen therapy 2L/min NC PRN has used "in a while" Orthostatic hypotension Port-A-Cath in place 10/2021 [facility] Presence of gastric pacemaker 12/2021 at [facility] recently for adjustments Primary cancer of left lung metastatic to other site Seizure disorder Hx grand mal seizures, no recent seizures has been many years Surgical History H/O colonoscopy H/O esophagogastroduodenoscopy History of cholecystectomy History of knee surgery LEFT X 17/RIGHT X 2 History of tonsillectomy and adenoidectomy Hx of total knee arthroplasty S/P lobectomy of lung SHAWN Status post insertion of intrathecal pump explanted Family History Mother Diabetes Dementia Father Hypertension Diabetes Sister Crohn's disease Social History Smoking Status: Former smoker Tobacco Type: Cigarettes Second Hand Exposure: No; Do You Dip or Chew Tobacco: Yes; Tobacco Cessation Education Requested by Patient: No Hx Alcohol Use: No Hx Substance Use: No Preferred Language: Palauan Communication Ability: Effective Visual Impairment: No Limitations Chainsaw Mechanic Required: No Beliefs That Will Affect Care: None marital status: Unknown Current Living Situation: Alone Current Living Situation Comment: has family close by and available to assist current occupational status: disabled How many Children do You have: 5 Other Information That Helps Us Care for You: No Feels Safe at Home: Yes Safety Concerns: Feels Safe At This Time Diet Comment: Carb counting caffeine: No Physical Activity Frequency: Does not Exercise Physical Activity Frequency Comment: walks when able Assistive Devices: Glasses, Oxygen - at Night and Walker Allergies Allergies Allergy/AdvReac Type Severity Reaction Status Date / Time bee venom protein (honey bee) Allergy Severe Swelling Verified 12/28/21 15:03 at site, SOB cat dander Allergy Unknown Unknown Verified 12/28/21 15:03 Penicillins Allergy Unknown Amoxicillin- Verified 12/28/21 15:03 "since " Home Meds Home Medications Medication Instructions Recorded Confirmed blood sugar diagnostic 04/26/21 01/03/22 flash glucose sensor (FreeStyle 04/26/21 01/03/22 Amparo 14 Day Sensor kit) gabapentin 400 mg capsule 400 mg PO TID 04/26/21 01/03/22 insulin glargine 100 unit/mL (3 7 unit subcut QPM 04/26/21 01/03/22 mL) subcutaneous pen (Lantus Solostar U-100 Insulin) clonidine 0.2 mg/24 hr weekly 0.2 mg transdermal FR 06/30/21 01/03/22 transdermal patch lisinopril 40 mg tablet 40 mg PO QAM 09/29/21 01/03/22 omeprazole 40 mg capsule,delayed 40 mg PO QAM 09/29/21 01/03/22 release Probiotic 1 tab PO DAILY 10/20/21 01/03/22 fluticasone 250 mcg-salmeterol 50 1 inh inhalation QAM 10/20/21 01/03/22 mcg/dose blistr powdr for inhalation metoclopramide HCl 10 mg tablet 10 mg PO TID PRN Nausea 10/20/21 01/03/22 hydromorphone 2 mg tablet 2 mg PO Q4H PRN Pain 12/18/21 01/03/22 insulin aspart U-100 100 unit/mL 1 sliding scale dose subcut ACHS 12/18/21 01/03/22 (3 mL) subcutaneous pen (Novolog Flexpen U-100 Insulin aspart) meclizine 12.5 mg tablet 12.5 mg PO TID PRN Dizziness 12/18/21 01/03/22 olanzapine 2.5 mg tablet 2.5 mg PO HS 12/18/21 01/03/22 ondansetron 4 mg disintegrating 4 mg PO Q8H PRN Nausea 12/18/21 01/03/22 tablet Previous Rx's Medication Instructions Recorded albuterol sulfate 90 mcg/actuation 2 puff inhalation Q4H PRN 07/22/21 aerosol inhaler (Ventolin HFA) Shortness Of Breath #1 inhaler glucagon 1 mg solution for 1 mg IM ONCE PRN Hypoglycemia #1 ea 07/22/21 injection levetiracetam 750 mg tablet 750 mg PO BID #30 tabs 07/22/21 (Keppra) fentanyl 75 mcg/hr transdermal 75 mcg transdermal Q72H #3 ea 10/24/21 patch metoclopramide HCl 5 mg tablet 5 mg PO DAILY #14 tabs 12/25/21 (Reglan) Results & Data (ED) Vital Signs Vital Signs - 24 hr 01/03/22 16:25 01/03/22 18:13 01/03/22 18:13 Temperature 37.4 C Temperature Source Oral Pulse Rate 85 Pulse Rate [Apical] 92 H Pulse Rate [Left Finger] Pulse Rhythm [Apical] Pulse Rhythm [Left Finger] Pulse Strength [Apical] Pulse Strength [Left Finger] Respiratory Rate 20 20 Respiratory Effort / Characteristics Non-Labored Spontaneous Non-Labored Spontaneous Respiratory Depth Normal Normal Respiratory Pattern Regular Blood Pressure 205/112 H Blood Pressure [Right Arm] 221/131 H Blood Pressure Mean 143 Blood Pressure Mean [Right Arm] 161 Blood Pressure Position [Right Arm] Lying Pulse Oximetry 100 100 Pulse Oximetry [Left Ring Finger] Oxygen Delivery Method Room Air Room Air Room Air Oxygen Delivery Method [Left Ring Finger] Oxygen Flow Rate Oxygen Flow Rate [Left Ring Finger] Sepsis Recent Fever Within 48 Hours No Sepsis New/Unexplained Change in Mental Status N/A Sepsis Action Taken by Nursing No Action Required 01/03/22 18:13 01/03/22 18:46 01/03/22 19:00 Temperature Temperature Source Pulse Rate Pulse Rate [Apical] 83 84 Pulse Rate [Left Finger] Pulse Rhythm [Apical] Regular Pulse Rhythm [Left Finger] Pulse Strength [Apical] Normal Pulse Strength [Left Finger] Respiratory Rate 20 22 Respiratory Effort / Characteristics Non-Labored Non-Labored Spontaneous Respiratory Depth Normal Normal Respiratory Pattern Regular Blood Pressure Blood Pressure [Right Arm] 223/121 H 187/110 H Blood Pressure Mean Blood Pressure Mean [Right Arm] 155 135 Blood Pressure Position [Right Arm] Pulse Oximetry 100 100 100 Pulse Oximetry [Left Ring Finger] Oxygen Delivery Method Room Air Room Air Nasal Cannula Oxygen Delivery Method [Left Ring Finger] Oxygen Flow Rate 2 Oxygen Flow Rate [Left Ring Finger] Sepsis Recent Fever Within 48 Hours Sepsis New/Unexplained Change in Mental Status Sepsis Action Taken by Nursing 01/03/22 20:22 01/03/22 20:30 01/03/22 22:39 Temperature Temperature Source Pulse Rate Pulse Rate [Apical] 84 83 81 Pulse Rate [Left Finger] Pulse Rhythm [Apical] Regular Regular Regular Pulse Rhythm [Left Finger] Pulse Strength [Apical] Normal Normal Normal Pulse Strength [Left Finger] Respiratory Rate 19 18 20 Respiratory Effort / Characteristics Non-Labored Spontaneous Non-Labored Spontaneous Non-Labored Spontaneous Respiratory Depth Normal Normal Normal Respiratory Pattern Regular Regular Blood Pressure Blood Pressure [Right Arm] 193/107 H 166/104 H 196/116 H Blood Pressure Mean Blood Pressure Mean [Right Arm] 135 124 142 Blood Pressure Position [Right Arm] Sitting Pulse Oximetry 99 98 99 Pulse Oximetry [Left Ring Finger] Oxygen Delivery Method Nasal Cannula Room Air Nasal Cannula Oxygen Delivery Method [Left Ring Finger] Oxygen Flow Rate 2 2 Oxygen Flow Rate [Left Ring Finger] Sepsis Recent Fever Within 48 Hours Sepsis New/Unexplained Change in Mental Status Sepsis Action Taken by Nursing 01/03/22 23:08 01/04/22 01:24 01/04/22 01:24 Temperature 36.7 C Temperature Source Oral Pulse Rate Pulse Rate [Apical] 76 Pulse Rate [Left Finger] 86 Pulse Rhythm [Apical] Regular Pulse Rhythm [Left Finger] Regular Pulse Strength [Apical] Normal Pulse Strength [Left Finger] Normal Respiratory Rate 17 18 Respiratory Effort / Characteristics Non-Labored Spontaneous Non-Labored Spontaneous Respiratory Depth Normal Normal Respiratory Pattern Regular Regular Blood Pressure Blood Pressure [Right Arm] 172/104 H 215/128 H Blood Pressure Mean Blood Pressure Mean [Right Arm] 126 157 Blood Pressure Position [Right Arm] Lying Pulse Oximetry 100 100 Pulse Oximetry [Left Ring Finger] 100 Oxygen Delivery Method Nasal Cannula Oxygen Delivery Method [Left Ring Finger] Nasal Cannula Oxygen Flow Rate 2 Oxygen Flow Rate [Left Ring Finger] 2 Sepsis Recent Fever Within 48 Hours Sepsis New/Unexplained Change in Mental Status Sepsis Action Taken by Nursing 01/04/22 02:05 01/04/22 02:05 01/04/22 02:41 Temperature 36.7 C 37.0 C Temperature Source Oral Oral Pulse Rate Pulse Rate [Apical] Pulse Rate [Left Finger] 86 67 Pulse Rhythm [Apical] Pulse Rhythm [Left Finger] Regular Pulse Strength [Apical] Pulse Strength [Left Finger] Normal Respiratory Rate 18 20 Respiratory Effort / Characteristics Non-Labored Spontaneous Non-Labored Spontaneous Respiratory Depth Normal Normal Respiratory Pattern Regular Regular Blood Pressure Blood Pressure [Right Arm] 215/128 H 180/86 H Blood Pressure Mean Blood Pressure Mean [Right Arm] 157 117 Blood Pressure Position [Right Arm] Lying Lying Pulse Oximetry 100 99 Pulse Oximetry [Left Ring Finger] Oxygen Delivery Method Nasal Cannula Nasal Cannula Nasal Cannula Oxygen Delivery Method [Left Ring Finger] Oxygen Flow Rate 2 2 2 Oxygen Flow Rate [Left Ring Finger] Sepsis Recent Fever Within 48 Hours Sepsis New/Unexplained Change in Mental Status Sepsis Action Taken by Nursing 01/04/22 03:26 Temperature Temperature Source Pulse Rate 84 Pulse Rate [Apical] Pulse Rate [Left Finger] Pulse Rhythm [Apical] Pulse Rhythm [Left Finger] Pulse Strength [Apical] Pulse Strength [Left Finger] Respiratory Rate Respiratory Effort / Characteristics Respiratory Depth Respiratory Pattern Blood Pressure Blood Pressure [Right Arm] Blood Pressure Mean Blood Pressure Mean [Right Arm] Blood Pressure Position [Right Arm] Pulse Oximetry Pulse Oximetry [Left Ring Finger] Oxygen Delivery Method Oxygen Delivery Method [Left Ring Finger] Oxygen Flow Rate Oxygen Flow Rate [Left Ring Finger] Sepsis Recent Fever Within 48 Hours Sepsis New/Unexplained Change in Mental Status Sepsis Action Taken by Long Term Medications Current Medication List: was personally reviewed by me Laboratory Data Attestation: I reviewed the patient's lab results. Result diagrams: 01/04/22 05:32 01/04/22 05:32 Lab Results 01/03/22 01/03/22 01/03/22 Range/Units 16:47 16:47 16:47 WBC 7.08 (4.8-10.8) K/ul RBC 2.72 L (4.63-6.08) M/uL Hgb 7.9 L (14.0-18.0) g/dl Hct 24.9 L (40.1-51.0) % MCV 91.5 (80.0-100.0) fL MCH 29.0 (25.0-34.0) pg MCHC 31.7 L (32.0-36.0) g/dL RDW Std Deviation 44.6 (36.4-46.3) fL RDW Coeff of Rik 13.3 (11.5-14.5) % Plt Count 302 (130-400) K/uL MPV 10.0 (9.4-12.4) fL Immature Gran % (Auto) 0.3 % Neut % (Auto) 78.4 % Lymph % (Auto) 11.0 % Wheeler % (Auto) 8.1 % Eos % (Auto) 1.6 % Baso % (Auto) 0.6 % Reticulocyte % (Auto) (0.5-2.0) % Neut # (Auto) 5.56 (1.4-6.5) K/uL Lymph # (Auto) 0.78 L (1.2-3.4) K/uL Wheeler # (Auto) 0.57 (0.24-0.82) K/uL Eos # (Auto) 0.11 (0-0.50) K/uL Baso # (Auto) 0.04 (0-0.2) K/uL Reticulocyte # (0.02-0.10) 10^6/uL Immature Gran # (Auto) 0.02 (0.00-0.02) K/uL Ovalocytes 1+ PT 11.4 (9.0-12.0) Seconds INR 1.1 (0.9-1.1) APTT 27.4 (21.0-31.0) Seconds PTT Ratio 1.0 Sodium 133 L (136-145) mmol/L Potassium 3.9 (3.5-5.1) mmol/L Chloride 100 (98-107) mmol/L Carbon Dioxide 24 (21-32) mmol/L Anion Gap 9 (3-11) BUN 19 (6-23) mg/dl Creatinine 4.80 H* (0.6-1.4) mg/dl Est Cr Clr Drug Dosing 16.6 ml/min Est GFR ( Amer) 14.6 ml/min Est GFR (Non-Af Amer) 12.6 ml/min BUN/Creatinine Ratio 4.0 L (10-20) Glucose 199 H (70-99(Fasting)) mg/dl POC Glucose (70-99) mg/dl Calcium 8.0 L (8.5-10.1) mg/dl Magnesium 1.8 (1.7-2.4) mg/dl Iron (35-175) mcg/dl Transferrin (200-360) mg/dl Ferritin (8-388) ng/ml Total Bilirubin 0.3 (0.2-1.0) mg/dl AST 7 L (13-39) U/L ALT 5 L (7-52) U/L Alkaline Phosphatase 119 H (34-104) U/L Troponin I High Sens 13.6 (0-20) pg/ml Total Protein 7.1 (6.0-8.3) gm/dl Albumin 3.4 (3.4-5.0) gm/dl Globulin 3.7 (2.5-4.0) gm/dl Albumin/Globulin Ratio 0.9 (0.9-2) Vitamin B12 (180-914) pg/ml Folate (>5.38) ng/ml Nasal Screen MRSA (PCR) (Negative) SARS-CoV-2, RNA, NAAT (NEGATIVE) 01/03/22 01/03/22 01/04/22 Range/Units 20:28 21:03 00:06 WBC (4.8-10.8) K/ul RBC (4.63-6.08) M/uL Hgb (14.0-18.0) g/dl Hct (40.1-51.0) % MCV (80.0-100.0) fL MCH (25.0-34.0) pg MCHC (32.0-36.0) g/dL RDW Std Deviation (36.4-46.3) fL RDW Coeff of Rik (11.5-14.5) % Plt Count (130-400) K/uL MPV (9.4-12.4) fL Immature Gran % (Auto) % Neut % (Auto) % Lymph % (Auto) % Wheeler % (Auto) % Eos % (Auto) % Baso % (Auto) % Reticulocyte % (Auto) (0.5-2.0) % Neut # (Auto) (1.4-6.5) K/uL Lymph # (Auto) (1.2-3.4) K/uL Wheeler # (Auto) (0.24-0.82) K/uL Eos # (Auto) (0-0.50) K/uL Baso # (Auto) (0-0.2) K/uL Reticulocyte # (0.02-0.10) 10^6/uL Immature Gran # (Auto) (0.00-0.02) K/uL Ovalocytes PT (9.0-12.0) Seconds INR (0.9-1.1) APTT (21.0-31.0) Seconds PTT Ratio Sodium (136-145) mmol/L Potassium (3.5-5.1) mmol/L Chloride (98-107) mmol/L Carbon Dioxide (21-32) mmol/L Anion Gap (3-11) BUN (6-23) mg/dl Creatinine (0.6-1.4) mg/dl Est Cr Clr Drug Dosing ml/min Est GFR ( Amer) ml/min Est GFR (Non-Af Amer) ml/min BUN/Creatinine Ratio (10-20) Glucose (70-99(Fasting)) mg/dl POC Glucose 140 H (70-99) mg/dl Calcium (8.5-10.1) mg/dl Magnesium (1.7-2.4) mg/dl Iron (35-175) mcg/dl Transferrin (200-360) mg/dl Ferritin (8-388) ng/ml Total Bilirubin (0.2-1.0) mg/dl AST (13-39) U/L ALT (7-52) U/L Alkaline Phosphatase (34-104) U/L Troponin I High Sens 15.7 (0-20) pg/ml Total Protein (6.0-8.3) gm/dl Albumin (3.4-5.0) gm/dl Globulin (2.5-4.0) gm/dl Albumin/Globulin Ratio (0.9-2) Vitamin B12 (180-914) pg/ml Folate (>5.38) ng/ml Nasal Screen MRSA (PCR) (Negative) SARS-CoV-2, RNA, NAAT NEGATIVE (NEGATIVE) 01/04/22 01/04/22 01/04/22 Range/Units 02:49 03:00 05:32 WBC 5.92 (4.8-10.8) K/ul RBC 2.72 L (4.63-6.08) M/uL Hgb 7.8 L (14.0-18.0) g/dl Hct 24.9 L (40.1-51.0) % MCV 91.5 (80.0-100.0) fL MCH 28.7 (25.0-34.0) pg MCHC 31.3 L (32.0-36.0) g/dL RDW Std Deviation 45.1 (36.4-46.3) fL RDW Coeff of Rik 13.5 (11.5-14.5) % Plt Count 309 (130-400) K/uL MPV 10.3 (9.4-12.4) fL Immature Gran % (Auto) 0.3 % Neut % (Auto) 63.8 % Lymph % (Auto) 19.4 % Wheeler % (Auto) 10.8 % Eos % (Auto) 4.9 % Baso % (Auto) 0.8 % Reticulocyte % (Auto) 0.7 (0.5-2.0) % Neut # (Auto) 3.77 (1.4-6.5) K/uL Lymph # (Auto) 1.15 L (1.2-3.4) K/uL Wheeler # (Auto) 0.64 (0.24-0.82) K/uL Eos # (Auto) 0.29 (0-0.50) K/uL Baso # (Auto) 0.05 (0-0.2) K/uL Reticulocyte # 0.02 (0.02-0.10) 10^6/uL Immature Gran # (Auto) 0.02 (0.00-0.02) K/uL Ovalocytes 1+ PT (9.0-12.0) Seconds INR (0.9-1.1) APTT (21.0-31.0) Seconds PTT Ratio Sodium (136-145) mmol/L Potassium (3.5-5.1) mmol/L Chloride (98-107) mmol/L Carbon Dioxide (21-32) mmol/L Anion Gap (3-11) BUN (6-23) mg/dl Creatinine (0.6-1.4) mg/dl Est Cr Clr Drug Dosing ml/min Est GFR ( Amer) ml/min Est GFR (Non-Af Amer) ml/min BUN/Creatinine Ratio (10-20) Glucose (70-99(Fasting)) mg/dl POC Glucose 158 H (70-99) mg/dl Calcium (8.5-10.1) mg/dl Magnesium (1.7-2.4) mg/dl Iron (35-175) mcg/dl Transferrin (200-360) mg/dl Ferritin (8-388) ng/ml Total Bilirubin (0.2-1.0) mg/dl AST (13-39) U/L ALT (7-52) U/L Alkaline Phosphatase (34-104) U/L Troponin I High Sens (0-20) pg/ml Total Protein (6.0-8.3) gm/dl Albumin (3.4-5.0) gm/dl Globulin (2.5-4.0) gm/dl Albumin/Globulin Ratio (0.9-2) Vitamin B12 (180-914) pg/ml Folate (>5.38) ng/ml Nasal Screen MRSA (PCR) Negative (Negative) SARS-CoV-2, RNA, NAAT (NEGATIVE) 01/04/22 01/04/22 01/04/22 Range/Units 05:32 05:32 05:32 WBC (4.8-10.8) K/ul RBC (4.63-6.08) M/uL Hgb (14.0-18.0) g/dl Hct (40.1-51.0) % MCV (80.0-100.0) fL MCH (25.0-34.0) pg MCHC (32.0-36.0) g/dL RDW Std Deviation (36.4-46.3) fL RDW Coeff of Rik (11.5-14.5) % Plt Count (130-400) K/uL MPV (9.4-12.4) fL Immature Gran % (Auto) % Neut % (Auto) % Lymph % (Auto) % Wheeler % (Auto) % Eos % (Auto) % Baso % (Auto) % Reticulocyte % (Auto) (0.5-2.0) % Neut # (Auto) (1.4-6.5) K/uL Lymph # (Auto) (1.2-3.4) K/uL Wheeler # (Auto) (0.24-0.82) K/uL Eos # (Auto) (0-0.50) K/uL Baso # (Auto) (0-0.2) K/uL Reticulocyte # (0.02-0.10) 10^6/uL Immature Gran # (Auto) (0.00-0.02) K/uL Ovalocytes PT (9.0-12.0) Seconds INR (0.9-1.1) APTT 34.2 H (21.0-31.0) Seconds PTT Ratio 1.2 Sodium 134 L (136-145) mmol/L Potassium 3.9 (3.5-5.1) mmol/L Chloride 102 (98-107) mmol/L Carbon Dioxide 23 (21-32) mmol/L Anion Gap 9 (3-11) BUN 23 (6-23) mg/dl Creatinine 5.58 H* D (0.6-1.4) mg/dl Est Cr Clr Drug Dosing 14.3 ml/min Est GFR ( Amer) 12.1 ml/min Est GFR (Non-Af Amer) 10.5 ml/min BUN/Creatinine Ratio 4.1 L (10-20) Glucose 122 H (70-99(Fasting)) mg/dl POC Glucose (70-99) mg/dl Calcium 7.9 L (8.5-10.1) mg/dl Magnesium (1.7-2.4) mg/dl Iron 33 L (35-175) mcg/dl Transferrin 151 L (200-360) mg/dl Ferritin 304.3 (8-388) ng/ml Total Bilirubin (0.2-1.0) mg/dl AST (13-39) U/L ALT (7-52) U/L Alkaline Phosphatase (34-104) U/L Troponin I High Sens 15.9 (0-20) pg/ml Total Protein (6.0-8.3) gm/dl Albumin (3.4-5.0) gm/dl Globulin (2.5-4.0) gm/dl Albumin/Globulin Ratio (0.9-2) Vitamin B12 > 1500 H (180-914) pg/ml Folate 9.11 (>5.38) ng/ml Nasal Screen MRSA (PCR) (Negative) SARS-CoV-2, RNA, NAAT (NEGATIVE) Administered Medications Gabapentin (Gabapentin 400 Mg Cap) 400 mg PO TID [facility] Stop: 02/03/22 01:23 Last Admin: 01/04/22 02:52 Dose: 400 mg Documented By: NUSRAT Hydromorphone HCl (Hydromorphone Hcl 2 Mg Tab) 2 mg PO Q4H PRN PRN Reason: Pain Stop: 01/18/22 01:23 Last Admin: 01/04/22 07:35 Dose: 2 mg Documented By: Admin: 01/04/22 02:56 Dose: 2 mg Documented By: NUSRAT Insulin Aspart (Insulin Aspart Per Unit) 0 units SC ACHS [facility] Stop: 02/03/22 01:23 Last Admin: 01/04/22 02:51 Dose: 1 units Documented By: NUSRAT Co-signed By: CHAO [facility]inop[facility] ([facility] 40 Mg Tab) [facility] [place]: 02/03/22 01:29 Last Admin: 01/04/22 02:53 Dose: 40 mg Documented By: NUSRAT Olanzapine (Olanzapine 2.5 Mg Tab) 2.5 mg PO HS [facility] Stop: 02/03/22 01:23 Last Admin: 01/04/22 02:52 Dose: 2.5 mg Documented By: NUSRAT Discontinued Medications Amlodipine Besylate (Amlodipine Besylate 5 Mg Tab) 5 mg PO NOW ONE Stop: 01/03/22 23:07 Last Admin: 01/04/22 00:12 Dose: 5 mg Documented By: MARIAH Hydralazine HCl (Hydralazine Hcl 20 Mg/Ml Vial) 10 mg IV NOW STA Stop: 01/03/22 18:33 Last Admin: 01/03/22 18:42 Dose: 10 mg Documented By: JEAN CLAUDE Hydromorphone HCl (Hydromorphone Hcl 2 Mg Tab) 2 mg PO NOW STA Stop: 01/03/22 21:59 Last Admin: 01/03/22 22:36 Dose: 2 mg Documented By: MARIAH Calcium Gluconate () 1,000 mg in 60 mls @ 240 mls/hr IV NOW STA Stop: 01/03/22 19:03 Last Infusion: 01/03/22 19:32 Dose: 0 mls/hr Documented By: Admin: 01/03/22 19:07 Dose: 240 mls/hr Documented By: MARIAH Doxycycline Hyclate 100 mg/ (Dextrose) 110 mls @ 50 mls/hr IV NOW STA Stop: 01/04/22 06:20 Last Infusion: 01/04/22 06:33 Dose: 0 mls/hr Documented By: Admin: 01/04/22 04:19 Dose: 50 mls/hr Documented By: NUSRAT Insulin Glargine (Lantus Per Unit Charge) 5 units SQ NOW STA Stop: 01/03/22 23:15 Last Admin: 01/04/22 00:10 Dose: 5 units Documented By: MARIAH Co-signed By: SHABANA Labetalol HCl (Labetalol Hcl Iv 5 Mg/Ml 20ml) 10 mg IV NOW STA Stop: 01/04/22 01:46 Last Admin: 01/04/22 01:58 Dose: 10 mg Documented By: NUSRAT Co-signed By: CHAO Morphine Sulfate (Morphine Sulfate 4 Mg/Ml 1 Ml Carp\\Vial) 4 mg IV NOW STA Stop: 01/03/22 18:33 Last Admin: 01/03/22 18:42 Dose: 4 mg Documented By: JEAN CLAUDE Morphine Sulfate (Morphine Sulfate 4 Mg/Ml 1 Ml Carp\\Vial) 4 mg IV NOW STA Stop: 01/03/22 20:17 Last Admin: 01/03/22 20:31 Dose: 4 mg Documented By: MARIAH Nitroglycerin (Nitroglycerin Sl 0.4 Mg/Tab Tab) 0.4 mg SL NOW STA Stop: 01/03/22 20:17 Last Admin: 01/03/22 20:23 Dose: 0.4 mg Documented By: MARIAH Imaging Data Radiologist's Impression: Foot CT 01/04/22 01:37 CT foot LT wo con CLINICAL HISTORY: L foot swelling TECHNIQUE: Multidetector row helical CT of the right foot was performed without intravenous contrast. Coronal and sagittal reformations were obtained. Automated dose lowering techniques and/or adjustment according to patient size were utilized for this examination. CT DOSE: 194.01 mGy.cm Comparison: None available at the time of this dictation. FINDINGS: The osseous structures are without fracture or dislocation. No focal erosions are seen to suggest osteomyelitis. The joint spaces are maintained. Extensive atherosclerotic vascular calcifications are seen. Mild to moderate edema is seen over the dorsum of the foot. No abscess or subcutaneous emphysema is seen. IMPRESSION: No focal erosions are seen to suggest CT evidence of osteomyelitis. Atherosclerosis and soft tissue swelling are seen. If there is clinical concern, MRI can be performed as a more sensitive modality. ACT 112: Negative or not required by law. Electronically signed by: Tan Muller M.D. 01/04/2022 8:10 AM Discharge Plan Visit Data Chief Complaint: Cardiac Assessment Stated Complaint: CHEST PAIN, ARM/SHOULDER PAIN, SOB, VOMITING ED Provider: Meliton Griffin Discharge Problem: Hypertensive urgency, ESRD (end stage renal disease) on dialysis, Anemia, Lung cancer, Chest pain Patient Disposition: Admitted As Inpatient Discharge Instructions Interventions: ED Discharge Assessment Last Done: 01/04/22 00:43
[2022-01-03] MEDS ORDERED: MoRPHine SULFATE 4 MG/ML 1 ML CARP\\VIAL IV STA ×2 (18:32→20:16)
[2022-01-03] MEDS ORDERED: hydrALAZINE HCL 20 MG/ML VIAL IV STA (18:32)
[2022-01-03] MEDS ORDERED: CALCIUM GLUCONATE 1,000 MG/60 ML BAG IV STA (18:49)
[2022-01-03] MEDS ORDERED: NITROGLYCERIN SL 0.4 MG/TAB TAB SL STA (20:16)
[2022-01-03 21:04] LABS: Magnesium 1.8 mg/dl (1.7-2.4)
[2022-01-03] MEDS ORDERED: HYDROmorphone HCL 2 MG TAB PO STA (21:58)
[2022-01-03] MEDS ORDERED: amLODIPine BESYLATE 5 MG TAB PO ONE (23:06)
--- NOTE | 2022-01-03 23:06 | History & Physical Report ---
Date of Service January 03, 2022 Assessment & Plan (1) Hypertensive crisis: Plan: Presenting as headache and chest pain symptoms ? Compliance, possible functional disability given recurrent admissions hx COPD, pulmonary hypertension, lung status at baseline metastatic NSCLC status post surgery, radiation/incomplete chemotherapy secondary to intolerance, patient not a candidate for additional treatment as per recent outpatient Oncology note hx IBD, gastroparesis status post gastric pacemaker, symptoms better after recent pacemaker adjustment chronic pain on narcotics DM1, suboptimal control as of recent hemoglobin A1c of 9.1 last October 2021 ESRD on HD Left foot cellulitis secondary to necrotic wound rule out abscess, no overt sepsis for now Acute on chronic anemia, minimal drop from baseline, patient denies bleeding concerns seizure disorder, stable on regimen past tobacco abuse OBS PCU Facilitate home BP meds Add amlodipine to regimen Nephrology consult Re: Hypertensive crisis and dialysis management Follow troponin Update TTE Judicious narcotic use given patient gastroparesis history (I told patient I was not comfortable prescribing IV narcotics given history.) Offload LLE Doxycycline for left foot cellulitis CT left foot and LLE arterial Dopplers for additional work-up Further management pending imaging results. Anemia work-up, transfuse PRBC if hemoglobin less than 7 and or for symptomatic anemia Basal bolus insulin, ISS BG goal 110-140, carb count coverage PT OT eval DVT prophylaxis. Heparin subcu Full code Text document was generated using [employer] voice recognition software. It may contain grammatical or spelling errors. Kindly contact undersigned for clarification of any documentation item in question. Text document was generated using [employer] voice recognition software. It may contain grammatical or spelling errors. Kindly contact undersigned for clarification of any documentation item in question. History of Present Illness Chief Complaint: Chest pain Primary Care Provider: Juan Lamb MD History obtained from patient and records. Medical history significant for COPD, pulmonary hypertension, metastatic NSCLC status post surgery, radiation/incomplete chemotherapy secondary to intolerance, IBD, gastroparesis status post gastric pacemaker, chronic pain on narcotics, HTN, DM1, DM neuropathy, ESRD, chronic anemia (baseline hemoglobin 8), seizure disorder as per records, hx neurogenic bladder as per records, past tobacco abuse Monthly [facility] admissions since June,. Last confinement 2 weeks ago for intractable nausea vomiting and hypertensive urgency secondary to gastroparesis. Patient was in [place] last week to have gastric pacemaker reprogrammed. [facility] ER visit 4 days ago for nausea, vomiting symptoms. Patient subsequently discharged. Patient usual dialysis schedule Saturday. Extra dialysis session yesterday after patient sent by news gathering technician for a CAT scan IV contrast study of the chest last Saturday for breathing concerns. Outpatient CT chest done on [facility] [place] possibly showing pneumonia although patient denies current cough complaints. Today patient had chest pain radiating to the left arm and some shortness of breath associated with a headache symptoms. He gets the symptoms when his blood pressure is not controlled as per patient. Highest SBP at the ER 230s. Minimal relief with nitroglycerin administered at the ER. Patient compliant with home medications. Gastroparesis symptoms controlled as per patient. Denies unusual abdominal pain, black bloody stools. Necrotic left foot wound/swelling without unusual pain noted by COMMUNITY SERVICES COORDINATOR upon patient arrival to the floor and removal of patient's special boot for foot drop. Weak pedal pulses on left foot as per RN. Patient not sure how long he has had left foot wound. No fever, no chills. Medical History as above Surgical History : Knee surgery, thorascopy, lymphadenectomy, lung lobectomy, tonsillectomy/adenoidectomy Family History : Lung cancer, diabetes, renal cell carcinoma Personal/Social history : Past tobacco abuse, no EtOH intake, disabled Allergies Allergy/AdvReac Type Severity Reaction Status Date / Time bee venom protein (honey bee) Allergy Severe Swelling Verified 12/28/21 15:03 at site, SOB cat dander Allergy Unknown Unknown Verified 12/28/21 15:03 Penicillins Allergy Unknown Amoxicillin- Verified 12/28/21 15:03 "since " Home Medications Medication Instructions Recorded Confirmed Type blood sugar diagnostic 04/26/21 01/03/22 History flash glucose sensor (FreeStyle 04/26/21 01/03/22 History Amparo 14 Day Sensor kit) gabapentin 400 mg capsule 400 mg PO TID 04/26/21 01/03/22 History insulin glargine 100 unit/mL (3 7 unit subcut QPM 04/26/21 01/03/22 History mL) subcutaneous pen (Lantus Solostar U-100 Insulin) clonidine 0.2 mg/24 hr weekly 0.2 mg transdermal FR 06/30/21 01/03/22 History transdermal patch albuterol sulfate 90 mcg/actuation 2 puff inhalation Q4H PRN 03/19/22 08/31/22 Rx aerosol inhaler (Ventolin HFA) Shortness Of Breath #1 inhaler glucagon 1 mg solution for 1 mg IM ONCE PRN Hypoglycemia #1 ea 07/22/21 01/03/22 Rx injection levetiracetam 750 mg tablet 750 mg PO BID #30 tabs 07/22/21 01/03/22 Rx (Keppra) lisinopril 40 mg tablet 40 mg PO QAM 09/29/21 01/03/22 History omeprazole 40 mg capsule,delayed 40 mg PO QAM 09/29/21 01/03/22 History release Probiotic 1 tab PO DAILY 10/20/21 01/03/22 History fluticasone 250 mcg-salmeterol 50 1 inh inhalation QAM 10/20/21 01/03/22 History mcg/dose blistr powdr for inhalation metoclopramide HCl 10 mg tablet 10 mg PO TID PRN Nausea 10/20/21 01/03/22 History fentanyl 75 mcg/hr transdermal 75 mcg transdermal Q72H #3 ea 10/24/21 01/03/22 Rx patch hydromorphone 2 mg tablet 2 mg PO Q4H PRN Pain 12/18/21 01/03/22 History insulin aspart U-100 100 unit/mL 1 sliding scale dose subcut ACHS 12/18/21 01/03/22 History (3 mL) subcutaneous pen (Novolog Flexpen U-100 Insulin aspart) meclizine 12.5 mg tablet 12.5 mg PO TID PRN Dizziness 12/18/21 01/03/22 History olanzapine 2.5 mg tablet 2.5 mg PO HS 12/18/21 01/03/22 History ondansetron 4 mg disintegrating 4 mg PO Q8H PRN Nausea 12/18/21 01/03/22 History tablet metoclopramide HCl 5 mg tablet 5 mg PO DAILY #14 tabs 12/25/21 01/03/22 Rx (Reglan) Past Med/Surg History Medical History Anemia Cancer lymph nodes - recent dx- 10/2021 follows w/ dr jane [facility] Chronic pain COPD (chronic obstructive pulmonary disease) Diabetic gastroparesis DM type 1 (diabetes mellitus, type 1) Enlarged prostate ESRD (end stage renal disease) on dialysis Gastroparesis s/p gastric stimulator History of Crohn's disease HTN (hypertension) Lung cancer Dx 2016 [facility]; + hilar nodes; s/p left upper lobectomy + chemo Neurogenic bladder On home oxygen therapy 2L/min [place] PRN has used "in a while" Orthostatic hypotension Port-A-Cath in place 10/2021 [facility] Presence of gastric pacemaker 12/2021 at [facility] recently for adjustments Primary cancer of left lung metastatic to other site Seizure disorder Hx grand mal seizures, no recent seizures has been many years Surgical History H/O colonoscopy H/O esophagogastroduodenoscopy History of cholecystectomy History of knee surgery LEFT X 17/RIGHT X 2 History of tonsillectomy and adenoidectomy Hx of total knee arthroplasty S/P lobectomy of lung SHAWN Status post insertion of intrathecal pump explanted Family History Mother Diabetes Dementia Father Hypertension Diabetes Sister Crohn's disease Social History Smoking Status: Former smoker Tobacco Type: Cigarettes Second Hand Exposure: No; Do You Dip or Chew Tobacco: Yes; Tobacco Cessation Education Requested by Patient: No Hx Alcohol Use: No Hx Substance Use: No Preferred Language: Slovak Communication Ability: Effective Visual Impairment: No Limitations Costing Manager Required: No Beliefs That Will Affect Care: None marital status: Unknown Current Living Situation: Alone Current Living Situation Comment: has family close by and available to assist current occupational status: disabled How many Children do You have: 5 Other Information That Helps Us Care for You: No Feels Safe at Home: Yes Safety Concerns: Feels Safe At This Time Diet Comment: Carb counting caffeine: No Physical Activity Frequency: Does not Exercise Physical Activity Frequency Comment: walks when able Assistive Devices: Glasses, Oxygen - at Night and Walker Review of Systems Review of Systems: As per HPI, all other systems reviewed and negative Physical Exam Physical Exam: GENERAL: uncomfortable, chronically ill, no respiratory distress SKIN: Pallor , warm HEENT: Partial alopecia, pale palpebral conjunctivae, no ptosis, dry buccal mucosa NECK : Supple, no tenderness CHEST : Decreased breath sounds, chronic chest wall tenderness HEART : RRR, systolic murmur ABDOMEN: Some distention, no overt tenderness EXTREMITIES : Nontender left foot swelling with necrotic wound on lateral aspect of foot with surrounding induration, no other conspicuous deformities noted NEUROLOGIC : Coherent, no facial asymmetry, gait and stance not assessed Results & Data Results & Data ([facility]) Vital Signs (Past 12 Hours) Vital Signs Temp Pulse Pulse Resp BP BP Pulse Ox 01/03/22 22:39 81 20 196/116 H 99 01/03/22 20:30 83 18 166/104 H 98 01/03/22 20:22 84 19 193/107 H 99 01/03/22 19:00 84 22 187/110 H 100 01/03/22 18:46 83 20 223/121 H 100 01/03/22 18:13 100 01/03/22 18:13 92 H 20 221/131 H 100 01/03/22 18:13 01/03/22 16:25 37.4 C 85 20 205/112 H 100 O2 Del Method O2 Flow Rate 01/03/22 22:39 Nasal Cannula 2 01/03/22 20:30 Room Air 01/03/22 20:22 Nasal Cannula 2 01/03/22 19:00 Nasal Cannula 2 01/03/22 18:46 Room Air 01/03/22 18:13 Room Air 01/03/22 18:13 Room Air 01/03/22 18:13 Room Air 01/03/22 16:25 Room Air Laboratory Results Laboratory Results WBC 7.08 K/ul (4.8-10.8) 01/03/22 16:47 RBC 2.72 M/uL (4.63-6.08) L 01/03/22 16:47 Hgb 7.9 g/dl (14.0-18.0) L 01/03/22 16:47 Hct 24.9 % (40.1-51.0) L 01/03/22 16:47 MCV 91.5 fL (80.0-100.0) 01/03/22 16:47 MCH 29.0 pg (25.0-34.0) 01/03/22 16:47 MCHC 31.7 g/dL (32.0-36.0) L 01/03/22 16:47 RDW Std Deviation 44.6 fL (36.4-46.3) 01/03/22 16:47 RDW Coeff of Rik 13.3 % (11.5-14.5) 01/03/22 16:47 Plt Count 302 K/uL (130-400) 01/03/22 16:47 MPV 10.0 fL (9.4-12.4) 01/03/22 16:47 Immature Gran % (Auto) 0.3 % 01/03/22 16:47 Neut % (Auto) 78.4 % 01/03/22 16:47 Lymph % (Auto) 11.0 % 01/03/22 16:47 [place] % (Auto) 8.1 % 01/03/22 16:47 Eos % (Auto) 1.6 % 01/03/22 16:47 Baso % (Auto) 0.6 % 01/03/22 16:47 Neut # (Auto) 5.56 K/uL (1.4-6.5) 01/03/22 16:47 Lymph # (Auto) 0.78 K/uL (1.2-3.4) L 01/03/22 16:47 [place] # (Auto) 0.57 K/uL (0.24-0.82) 01/03/22 16:47 Eos # (Auto) 0.11 K/uL (0-0.50) 01/03/22 16:47 Baso # (Auto) 0.04 K/uL (0-0.2) 01/03/22 16:47 Immature Gran # (Auto) 0.02 K/uL (0.00-0.02) 01/03/22 16:47 Ovalocytes 1+ 01/03/22 16:47 PT 11.4 Seconds (9.0-12.0) 01/03/22 16:47 INR 1.1 (0.9-1.1) 01/03/22 16:47 APTT 27.4 Seconds (21.0-31.0) 01/03/22 16:47 PTT Ratio 1.0 01/03/22 16:47 Sodium 133 mmol/L (136-145) L 01/03/22 16:47 Potassium 3.9 mmol/L (3.5-5.1) 01/03/22 16:47 Chloride 100 mmol/L (98-107) 01/03/22 16:47 Carbon Dioxide 24 mmol/L (21-32) 01/03/22 16:47 Anion Gap 9 (3-11) 01/03/22 16:47 BUN 19 mg/dl (6-23) 01/03/22 16:47 Creatinine 4.80 mg/dl (0.6-1.4) H* 01/03/22 16:47 Est Cr Clr Drug Dosing 16.6 ml/min 01/03/22 16:47 Est GFR ( Amer) 14.6 ml/min 01/03/22 16:47 Est GFR (Non-Af Amer) 12.6 ml/min 01/03/22 16:47 BUN/Creatinine Ratio 4.0 (10-20) L 01/03/22 16:47 Glucose 199 mg/dl (70-99(Fasting)) H 01/03/22 16:47 Calcium 8.0 mg/dl (8.5-10.1) L 01/03/22 16:47 Magnesium 1.8 mg/dl (1.7-2.4) 01/03/22 16:47 Total Bilirubin 0.3 mg/dl (0.2-1.0) 01/03/22 16:47 AST 7 U/L (13-39) L 01/03/22 16:47 ALT 5 U/L (7-52) L 01/03/22 16:47 Alkaline Phosphatase 119 U/L (34-104) H 01/03/22 16:47 Troponin I High Sens 15.7 pg/ml (0-20) 01/03/22 21:03 Total Protein 7.1 gm/dl (6.0-8.3) 01/03/22 16:47 Albumin 3.4 gm/dl (3.4-5.0) 01/03/22 16:47 Globulin 3.7 gm/dl (2.5-4.0) 01/03/22 16:47 Albumin/Globulin Ratio 0.9 (0.9-2) 01/03/22 16:47 SARS-CoV-2, RNA, NAAT NEGATIVE (NEGATIVE) 01/03/22 20:28 Impressions Chest X-Ray 01/03/22 16:32 SINGLE VIEW CHEST CLINICAL HISTORY: Atypical chest pain. FINDINGS: An AP, portable, upright chest radiograph is compared to study dated 12/25/2021 and correlated with chest CT dated 07/16/2021. The examination is degraded by portable technique and patient rotation. A right internal jugular central venous catheter and a left subclavian central venous infusion port are unchanged in position. The heart is enlarged. The pulmonary vasculature is noncongested. Suspect a trace left pleural effusion. Atelectasis is noted at the lung bases. No airspace consolidation is seen typical for pneumonia. No pneumothorax is seen. The skeletal structures are osteopenic. The bony thorax is grossly intact. IMPRESSION: 1. Cardiomegaly without radiographic evidence of congestive failure. 2. Suspect a trace left pleural effusion. 3. There is no airspace consolidation typical for pneumonia. ACT 112: Negative or not required by law. Electronically signed by: Russell Ty M.D. 01/03/2022 6:07 PM Diagnostic Findings EKG as per my interpretation :Rate 85, NSR, LAD, LAFB, septal infarct
[2022-01-03] MEDS ORDERED: LANTUS PER UNIT CHARGE SQ STA (23:14)
[2022-01-04] MEDS ORDERED: GLUCOSE 40% GEL 15 GM TUBE PO PRN (01:24)
[2022-01-04] MEDS ORDERED: GLUCOSE 10 TAB/TUBE PO PRN (01:24)
[2022-01-04] MEDS ORDERED: GLUCAGON FOR INJ 1 MG VIAL SQ PRN (01:24)
[2022-01-04] MEDS ORDERED: ACETAMINOPHEN 325 MG TAB PO PRN (01:24)
[2022-01-04] MEDS ORDERED: LABETALOL HCL IV 5 MG/ML 20ML IV STA (01:45)
[2022-01-04] MEDS: INSULIN ASPART PER UNIT SC SCH ×5 (02:51→20:28)
[2022-01-04] MEDS: GABAPENTIN 400 MG CAP PO SCH ×4 (02:52→21:04)
[2022-01-04] MEDS: OLANZAPINE 2.5 MG TAB PO SCH ×2 (02:52→21:04)
[2022-01-04] MEDS: lisinopril 40 MG TAB PO SCH (02:53)
[2022-01-04] MEDS: HYDROmorphone HCL 2 MG TAB PO PRN ×4 (02:56→21:02)
[2022-01-04] MEDS ORDERED: DOXYCYCLINE HYCLATE 100 MG in DEXTROSE 5% 100 ML IV STA (04:09)
[2022-01-04 06:22] LABS: Basophils # (auto) 0.05 K/uL (0-0.2); Basophils % (auto) 0.8 %; Eosinophils # (auto) 0.29 K/uL (0-0.50); Eosinophils % (auto) 4.9 %; Hematocrit (blood only) 24.9 % (40.1-51.0); Hemoglobin 7.8 g/dl (14.0-18.0); Immature Granulocytes # (auto) 0.02 K/uL (0.00-0.02); Immature Granulocytes % (auto) 0.3 %; Lymphocytes # (auto) 1.15 K/uL (1.2-3.4); Lymphocytes % (auto) 19.4 %; Mean Corpuscular Hemoglobin 28.7 pg (25.0-34.0); Mean Corpuscular Hgb Conc 31.3 g/dL (32.0-36.0); Mean Corpuscular Volume 91.5 fL (80.0-100.0); Mean Platelet Volume 10.3 fL (9.4-12.4); Monocytes # (auto) 0.64 K/uL (0.24-0.82); Monocytes % (auto) 10.8 %; Neutrophils # (auto) 3.77 K/uL (1.4-6.5); Neutrophils % (auto) 63.8 %; Platelet Count 309 K/uL (130-400); RDW Coefficient of Variation 13.5 % (11.5-14.5); RDW Standard Deviation 45.1 fL (36.4-46.3); Red Blood Count 2.72 M/uL (4.63-6.08); Reticulocyte % 0.7 % (0.5-2.0); Reticulocytes # 0.02 10^6/uL (0.02-0.10); White Blood Count 5.92 K/ul (4.8-10.8)
[2022-01-04] MEDS ORDERED: SODIUM CHLORIDE 0.9% 1000ML 1,000 ML IV PRN (06:31)
[2022-01-04 06:52] LABS: Troponin I High Sensitivity 15.9 pg/ml (0-20)
[2022-01-04 06:57] LABS: Partial Thromboplastin Ratio 1.2; Partial Thromboplastin Time 34.2 Seconds (21.0-31.0)
[2022-01-04] MEDS ORDERED: HEPARIN SOD (PORCINE) 1000 UNIT/ML IV SCH (07:00)
[2022-01-04 07:05] LABS: Ovalocytes 1+
[2022-01-04 07:06] LABS: Ferritin 304.3 ng/ml (8-388)
[2022-01-04 07:09] LABS: BUN Creatinine Ratio 4.1 (10-20); Calcium 7.9 mg/dl (8.5-10.1); Creatinine Clr Calc Pharmacy 14.3 ml/min; Est GFR (African American) 12.1 ml/min; Est GFR (Non-African American) 10.5 ml/min; Potassium 3.9 mmol/L (3.5-5.1)
[2022-01-04 07:11] LABS: Folate (Folic Acid) 9.11 ng/ml (>5.38)
[2022-01-04 07:12] LABS: Vitamin B12 > 1500 pg/ml (180-914)
--- NOTE | 2022-01-04 08:12 | CT Scan Report ---
CT foot LT wo con CLINICAL HISTORY: L foot swelling TECHNIQUE: Multidetector row helical CT of the right foot was performed without intravenous contrast. Coronal and sagittal reformations were obtained. Automated dose lowering techniques and/or adjustmen t according to patient size were utilized for this examination. CT DOSE: 194.01 mGy.cm Comparison: None available at the time of this dictation. FINDINGS: The osseous structures are without fracture or dislocation. No focal erosions are seen to suggest ost eomyelitis. The joint spaces are maintained. Extensive atherosclerotic vascular calcifications are se en. Mild to moderate edema is seen over the dorsum of the foot. No abscess or subcutaneous emphysema is seen. IMPRESSION: No focal erosions are seen to suggest CT evidence of osteomyelitis. Atherosclerosis and soft tissue s welling are seen. If there is clinical concern, MRI can be performed as a more sensitive modality. ACT 112: Negative or not required by law. Electronically signed by: Tan Muller M.D. 01/04/2022 8:10 AM
--- NOTE | 2022-01-04 08:16 | Nephrology Consultation ---
Date of Consultation January 04, 2022 Assessment & Plan (1) ESRD (end stage renal disease) on dialysis: extra tx today to help improve HTN w/ goal 3 L fluid removal >> however shortly after starting treatment his blood pressure dropped to 80s systolic w/ symptoms; we gave him saline back and ultimately removed only about 400 mL of fluid w/ post tx SBP 117 (2) Hypertensive urgency: labile blood pressures >continue lisinopril 40 mg, >increased amlodipine to 10 mg hs -continue clonidine patch -trial of coreg watching HR carefully History of Present Illness Reason for Consultation: ESRD, Hypertensive crisis Requesting Physician: Dr Chinchilla Attending Physician: Julia La MD History of Present Illness 56 y/o M whom I'm asked to see for dialysis needs and for blood pressure management was brought in for observation overnight for hypertensive crisis after presenting with headache and chest pain; also concerns on admission about left foot cellulitis/necrotic wound under his foot drop ankle brace. PMH also includes non-small cell lung cancer status post surgery, chemo, radiation with mets to bone, insulin-dependent T2DM w/ severe gastroparesis status post gastric stimulator placement, seizure disorder, COPD, hx of L foot drop and as below. He has frequent admissions here often involving his gastroparesis. He dialyzes MWF at [facility] under Dr Barajas's care via [facility]. He is generally adherent w/ his treatments. Pt is not a candidate for further cancer treatment per admitting provider's review of recent onc note. The patient is on monitor; amlodipine was added to his home regimen. He was started on abtx and had imaging of/for L foot wound. SBP have ranged from 170- 220. He describes intermittent chest pain to me mostly pleuritic in nature and happens daily/hourly > not relieved by anything he's found and no relation to pa rticular activities. no n/v currently; no missed HD txs. Allergies Allergy/AdvReac Type Severity Reaction Status Date / Time bee venom protein (honey bee) Allergy Severe Swelling Verified 12/28/21 15:03 at site, SOB cat dander Allergy Unknown Unknown Verified 12/28/21 15:03 Penicillins Allergy Unknown Amoxicillin- Verified 12/28/21 15:03 "since " Home Medications Medication Instructions Recorded Confirmed Type blood sugar diagnostic 04/26/21 01/03/22 History flash glucose sensor (FreeStyle 12/22/21 08/31/22 History Amparo 14 Day Sensor kit) gabapentin 400 mg capsule 400 mg PO TID 04/26/21 01/03/22 History insulin glargine 100 unit/mL (3 7 unit subcut QPM 04/26/21 01/03/22 History mL) subcutaneous pen (Lantus Solostar U-100 Insulin) clonidine 0.2 mg/24 hr weekly 0.2 mg transdermal FR 06/30/21 01/03/22 History transdermal patch albuterol sulfate 90 mcg/actuation 2 puff inhalation Q4H PRN 07/22/21 01/03/22 Rx aerosol inhaler (Ventolin HFA) Shortness Of Breath #1 inhaler glucagon 1 mg solution for 1 mg IM ONCE PRN Hypoglycemia #1 ea 07/22/21 01/03/22 Rx injection levetiracetam 750 mg tablet 750 mg PO BID #30 tabs 07/22/21 01/03/22 Rx (Keppra) lisinopril 40 mg tablet 40 mg PO QAM 09/29/21 01/03/22 History omeprazole 40 mg capsule,delayed 40 mg PO QAM 09/29/21 01/03/22 History release Probiotic 1 tab PO DAILY 10/20/21 01/03/22 History fluticasone 250 mcg-salmeterol 50 1 inh inhalation QAM 10/20/21 01/03/22 History mcg/dose blistr powdr for inhalation metoclopramide HCl 10 mg tablet 10 mg PO TID PRN Nausea 10/20/21 01/03/22 History fentanyl 75 mcg/hr transdermal 75 mcg transdermal Q72H #3 ea 10/24/21 01/03/22 Rx patch hydromorphone 2 mg tablet 2 mg PO Q4H PRN Pain 12/18/21 01/03/22 History insulin aspart U-100 100 unit/mL 1 sliding scale dose subcut ACHS 12/18/21 01/03/22 History (3 mL) subcutaneous pen (Novolog Flexpen U-100 Insulin aspart) meclizine 12.5 mg tablet 12.5 mg PO TID PRN Dizziness 12/18/21 01/03/22 History olanzapine 2.5 mg tablet 2.5 mg PO HS 12/18/21 01/03/22 History ondansetron 4 mg disintegrating 4 mg PO Q8H PRN Nausea 12/18/21 01/03/22 History tablet metoclopramide HCl 5 mg tablet 5 mg PO DAILY #14 tabs 12/25/21 01/03/22 Rx (Reglan) Patient History Medical History Anemia Cancer lymph nodes - recent dx- 10/2021 follows w/ dr jane [facility] Chronic pain COPD (chronic obstructive pulmonary disease) Diabetic gastroparesis DM type 1 (diabetes mellitus, type 1) Enlarged prostate ESRD (end stage renal disease) on dialysis Gastroparesis s/p gastric stimulator History of Crohn's disease HTN (hypertension) Lung cancer Dx 2015 [facility]; + hilar nodes; s/p left upper lobectomy + chemo Neurogenic bladder On home oxygen therapy 2L/min [place] PRN has used "in a while" Orthostatic hypotension Port-A-Cath in place 10/2021 [facility] Presence of gastric pacemaker 12/2021 at [facility] recently for adjustments Primary cancer of left lung metastatic to other site Seizure disorder Hx grand mal seizures, no recent seizures has been many years Surgical History H/O colonoscopy H/O esophagogastroduodenoscopy History of cholecystectomy History of knee surgery LEFT X 17/RIGHT X 2 History of tonsillectomy and adenoidectomy Hx of total knee arthroplasty S/P lobectomy of lung SH[place] Status post insertion of intrathecal pump explanted Family History Mother Diabetes Dementia Father Hypertension Diabetes Sister Crohn's disease Social History Smoking Status: Former smoker Tobacco Type: Cigarettes Second Hand Exposure: No; Do You Dip or Chew Tobacco: Yes; Tobacco Cessation Education Requested by Patient: No Hx Alcohol Use: No Hx Substance Use: No Preferred Language: Egyptian Communication Ability: Effective Visual Impairment: No Limitations Director Process Required: No Beliefs That Will Affect Care: None marital status: Single Current Living Situation: Alone Current Living Situation Comment: has family close by and available to assist current occupational status: disabled How many Children do You have: 5 Other Information That Helps Us Care for You: No Feels Safe at Home: Yes Safety Concerns: Feels Safe At This Time Diet Comment: Carb counting caffeine: No Physical Activity Frequency: Does not Exercise Physical Activity Frequency Comment: walks when able Assistive Devices: Cane and Walker Review of Systems Review of Systems: All systems reviewed & are unremarkable except as noted in HPI & below Physical Exam Constitutional: well developed and well nourished Eyes: EOM intact bilaterally ENMT: Ears: no external ear abnormality Nose: no external nose abnormality Mouth: + dry oral mucous membranes Neck: no nuchal rigidity Respiratory: normal respiratory effort Auscultation: + diminished lung sounds chest pain reproducible w/ pressing on sternum Cardiovascular: Rate/Rhythm: regular rate and regular rhythm Extremities: + edema (trace) Gastrointestinal (Abdomen): Inspection/Auscultation: normal bowel sounds Percussion/Palpation: abdomen soft; abdomen nontender Musculoskeletal: Extremities: strength 5/5 throughout Skin: no rashes, warm and dry Neurologic: villarreal, fluent speech, no tremor Psychiatric: Orientation: oriented x 3 Results & Data ([facility]) Vital Signs (Past 12 Hours) Vital Signs Temp Pulse Pulse Pulse Resp BP Pulse Ox 01/04/22 07:05 36.7 C 76 16 172/86 H 99 01/04/22 03:26 84 01/04/22 02:41 37.0 C 67 20 180/86 H 99 01/04/22 02:05 01/04/22 02:05 36.7 C 86 18 215/128 H 100 01/04/22 01:24 36.7 C 86 18 215/128 H 100 01/04/22 01:24 01/03/22 23:08 76 17 172/104 H 100 01/03/22 22:39 81 20 196/116 H 99 01/03/22 20:30 83 18 166/104 H 98 01/03/22 20:22 84 19 193/107 H 99 Pulse Ox O2 Del Method O2 Del Method O2 Flow Rate O2 Flow Rate 01/04/22 07:05 Nasal Cannula 1.5 01/04/22 03:26 01/04/22 02:41 Nasal Cannula 2 01/04/22 02:05 Nasal Cannula 2 01/04/22 02:05 Nasal Cannula 2 01/04/22 01:24 Nasal Cannula 2 01/04/22 01:24 100 Nasal Cannula 2 01/03/22 23:08 01/03/22 22:39 Nasal Cannula 2 01/03/22 20:30 Room Air 01/03/22 20:22 Nasal Cannula 2 Laboratory Results 01/04/22 05:32 01/04/22 05:32 Diagnostic Findings cxr 1. Cardiomegaly without radiographic evidence of congestive failure. 2. Suspect a trace left pleural effusion. 3. There is no airspace consolidation typical for pneumonia. Head CT, pending Foot CT review
[2022-01-04] MEDS: CHECK CLONIDINE PATCH PLACEMENT SCH ×3 (08:33→22:01)
[2022-01-04] MEDS: CHECK fentaNYL PATCH PLACEMENT SCH ×3 (08:33→22:01)
[2022-01-04] MEDS: FLUTICASONE/VILANTEROL 200/25MCG 14 PUFFS/INHALER INH SCH (08:34)
[2022-01-04] MEDS: DOCUSATE SODIUM/SENNA 50/8.6MG TAB PO SCH (08:34)
[2022-01-04] MEDS: METOCLOPRAMIDE HCL 5 MG TABLET PO SCH (08:35)
[2022-01-04] MEDS: levETIRAcetam 250 MG TAB PO SCH ×2 (08:35→21:04)
[2022-01-04] MEDS: ADVANCED PROBIOTIC 1250 MG CAPSULE PO SCH (08:35)
[2022-01-04] MEDS: PANTOprazole 40 MG TAB PO SCH (08:36)
[2022-01-04] MEDS ORDERED: lisinopril 40 MG TAB PO SCH (09:00)
--- NOTE | 2022-01-04 09:34 | CT Scan Report ---
CT head/brain wo con CLINICAL HISTORY: hill Technique: Contiguous axial CT images of the head were acquired from the base of the skull to the mendy lashaun without intravenous contrast administration. Images were viewed in brain, subdural and bone [facility]. Automated dose lowering techniques and/or adjustment according to patient size were utilized for this exam. Comparison: Comparison is made to CT head 10/25/2021 Findings: The ventricles, basal cisterns, and cerebral sulci are normal. There is no acute intracranial hemorrh age or evidence of acute territorial infarction. Neither mass effect, shift of the midline structures , nor abnormal extra-axial fluid collections are shown. Imaged portions of the paranasal sinuses and mastoid air cells are clear. The orbits appear normal. There are no acute fractures of the calvaria or scalp swelling. Impression: No acute intracranial hemorrhage, no evidence of acute territorial infarction or other acute intracra nial disease process. ACT 112: Negative or not required by law. Electronically signed by: Tan Muller M.D. 01/04/2022 9:32 AM
--- NOTE | 2022-01-04 12:09 | Orthopedic Consultation ---
Date of Consultation January 04, 2022 Assessment & Plan (1) Wound of left foot: He has a small area of dark eschar on the lateral border of his midfoot, as well as some blistering on the dorsum of the foot, all from a dropfoot brace that was too tight for him. I recommended discontinuation of this brace. I think it is safe for him to weight-bear as tolerated. He does not require any acute orthopedic surgical intervention. I would recommend wound care, podiatry consult, and regular podiatric follow-up due to his severe peripheral neuropathy and lack of protective sensation. I would recommend obtaining an ESR and CRP just for trending purposes. Orthopedics will sign off at this point. Please call with questions. History of Present Illness Reason for Consultation: Left foot wound Attending Physician: Julia La MD History of Present Illness Mr. Hamilton is a 56-year-old male with multiple severe medical problems, including COPD, pulmonary hypertension, lung cancer, chronic anemia, chronic poorly controlled diabetes with gastroparesis status post gastric pacemaker, end-stage kidney disease on hemodialysis, severe peripheral neuropathy. He is currently admitted for hypertensive crisis. He was noted to have a wound on the lateral aspect of his left foot. He states that this is from his dropfoot brac e. 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 He just got a new brace 2 days ago, and he feels like it was too tight. He has no protective sensation in his feet. He just noted the ulcer yesterday on admission when it was pointed out to him. He denies any pain. Allergies Allergy/AdvReac Type Severity Reaction Status Date / Time bee venom protein (honey bee) Allergy Severe Swelling Verified 12/28/21 15:03 at site, SOB cat dander Allergy Unknown Unknown Verified 12/28/21 15:03 Penicillins Allergy Unknown Amoxicillin- Verified 12/28/21 15:03 "since " Home Medications Medication Instructions Recorded Confirmed Type blood sugar diagnostic 04/26/21 01/03/22 History flash glucose sensor (FreeStyle 04/26/21 01/03/22 History Amparo 14 Day Sensor kit) gabapentin 400 mg capsule 400 mg PO TID 04/26/21 01/03/22 History insulin glargine 100 unit/mL (3 7 unit subcut QPM 04/26/21 01/03/22 History mL) subcutaneous pen (Lantus Solostar U-100 Insulin) clonidine 0.2 mg/24 hr weekly 0.2 mg transdermal FR 06/30/21 01/03/22 History transdermal patch albuterol sulfate 90 mcg/actuation 2 puff inhalation Q4H PRN 07/22/21 01/03/22 Rx aerosol inhaler (Ventolin HFA) Shortness Of Breath #1 inhaler glucagon 1 mg solution for 1 mg IM ONCE PRN Hypoglycemia #1 ea 07/22/21 01/03/22 Rx injection levetiracetam 750 mg tablet 750 mg PO BID #30 tabs 07/22/21 01/03/22 Rx (Keppra) lisinopril 40 mg tablet 40 mg PO QAM 09/29/21 01/03/22 History omeprazole 40 mg capsule,delayed 40 mg PO QAM 09/29/21 01/03/22 History release Probiotic 1 tab PO DAILY 10/20/21 01/03/22 History fluticasone 250 mcg-salmeterol 50 1 inh inhalation QAM 10/20/21 01/03/22 History mcg/dose blistr powdr for inhalation metoclopramide HCl 10 mg tablet 10 mg PO TID PRN Nausea 10/20/21 01/03/22 His tory fentanyl 75 mcg/hr transdermal 75 mcg transdermal Q72H #3 ea 10/24/21 01/03/22 Rx patch hydromorphone 2 mg tablet 2 mg PO Q4H PRN Pain 12/18/21 01/03/22 History insulin aspart U-100 100 unit/mL 1 sliding scale dose subcut ACHS 12/18/21 01/03/22 History (3 mL) subcutaneous pen (Novolog Flexpen U-100 Insulin aspart) meclizine 12.5 mg tablet 12.5 mg PO TID PRN Dizziness 12/18/21 01/03/22 History olanzapine 2.5 mg tablet 2.5 mg PO HS 12/18/21 01/03/22 History ondansetron 4 mg disintegrating 4 mg PO Q8H PRN Nausea 12/18/21 01/03/22 History tablet metoclopramide HCl 5 mg tablet 5 mg PO DAILY #14 tabs 12/25/21 01/03/22 Rx (Reglan) Patient History Medical History Anemia Cancer lymph nodes - recent dx- 10/2021 follows w/ dr jane gonzales Chronic pain COPD (chronic obstructive pulmonary disease) Diabetic gastroparesis DM type 1 (diabetes mellitus, type 1) Enlarged prostate ESRD (end stage renal disease) on dialysis Gastroparesis s/p gastric stimulator History of Crohn's disease HTN (hypertension) Lung cancer Dx 2015 [facility]; + hilar nodes; s/p left upper lobectomy + chemo Neurogenic bladder On home oxygen therapy 2L/min NC PRN has used "in a while" Orthostatic hypotension Port-A-Cath in place 10/2021 [facility] Presence of gastric pacemaker 12/2021 at [facility] recently for adjustments Primary cancer of left lung metastatic to other site Seizure disorder Hx grand mal seizures, no recent seizures has been many years Surgical History H/O colonoscopy H/O esophagogastroduodenoscopy History of cholecystectomy History of knee surgery LEFT X 17/RIGHT X 2 History of tonsillectomy and adenoidectomy Hx of total knee arthroplasty S/P lobectomy of lung [place] Status post insertion of intrathecal pump explanted Family History Mother Diabetes Dementia Father Hypertension Diabetes Sister Crohn's disease Social History Smoking Status: Former smoker Tobacco Type: Cigarettes Second Hand Exposure: No; Do You Dip or Chew Tobacco: Yes; Tobacco Cessation Education Requested by Patient: No Hx Alcohol Use: No Hx Substance Use: No Preferred Language: Bruneian Communication Ability: Effective Visual Impairment: No Limitations 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 Required: No Beliefs That Will Affect Care: None marital status: Unknown Current Living Situation: Alone Current Living Situation Comment: has family close by and available to assist current occupational status: disabled How many Children do You have: 5 Other Information That Helps Us Care for You: No Feels Safe at Home: Yes Safety Concerns: Feels Safe At This Time Diet Comment: Carb counting caffeine: No Physical Activity Frequency: Does not Exercise Physical Activity Frequency Comment: walks when able Assistive Devices: Glasses, Oxygen - at Night and Walker Physical Exam Physical Exam: Examination of his left foot reveals 2 small areas of dark eschar on the lateral border of his midfoot. The larger and darker area is about 2 cm in length and 1 cm in width. No open wounds. No surrounding erythema, fluctuance, or active or expressible drainage. There are several indentation lines in the dorsum of the foot consistent with tight straps from his brace. There is some mild blistering along these strap lines. Very mild diffuse swelling in this area, but no obvious infection. He is insensate in his foot. Foot is warm and well-perfused. Results & Data ([facility]) Vital Signs (Past 12 Hours) Vital Signs Temp Pulse Pulse Pulse Resp BP BP 01/04/22 11:38 36.4 C L 79 18 158/78 H 01/04/22 10:00 73 106/64 01/04/22 09:30 74 143/101 H 01/04/22 08:00 01/04/22 09:22 36.5 C 74 01/04/22 07:05 36.7 C 76 16 172/86 H 01/04/22 03:26 84 01/04/22 02:41 37.0 C 67 20 180/86 H 01/04/22 02:05 01/04/22 02:05 36.7 C 86 18 215/128 H 01/04/22 01:24 36.7 C 86 18 215/128 H 01/04/22 01:24 Pulse Ox Pulse Ox O2 Del Method O2 Del Method O2 Flow Rate O2 Flow Rate 01/04/22 11:38 99 Room Air 01/04/22 10:00 01/04/22 09:30 01/04/22 08:00 Nasal Cannula 2 01/04/22 09:22 01/04/22 07:05 99 Nasal Cannula 1.5 01/04/22 03:26 01/04/22 02:41 99 Nasal Cannula 2 01/04/22 02:05 Nasal Cannula 2 01/04/22 02:05 100 Nasal Cannula 2 01/04/22 01:24 100 Nasal Cannula 2 01/04/22 01:24 100 Nasal Cannula [address] scan left foot was reviewed. It is unremarkable. No bony erosions or acute fractures. No obvious evidence of osteomyelitis or abscess. HgbA1c 9.04 October 2021, as high as 12.5 in the past, lowest value in last 3 years was 8.9. WBC 5.92 No recent ESR or CRP
--- NOTE | 2022-01-04 12:28 | Hospitalist Progress Note ---
Date of Service January 04, 2022 Assessment & Plan (1) Hypertensive crisis: Plan: Presenting as headache and chest pain symptoms ?Hypertensive emergency Concern for possible poor med adherence considering recurrent admissions; likely complicated by nausea/vomiting related to gastroparesis Continue lisinopril, clonidine Continue amlodipine added BP dropped during HD today. Hence, HD was incomplete Will monitor BP trend today Chest pain appear atypical, likely MSK. Trop is normal. No ACS on EKG. Echo noted normal LV size with moderate concentric LVH without segmental wall motion abnormalities, EF of 55 to 60%. Pain control. Will continue regimen and make tylenol scheduled for now OBS PCU Facilitate home BP meds Add amlodipine to regimen Nephrology consult Re: Hypertensive crisis and dialysis management Follow troponin Update TTE Judicious narcotic use given patient gastroparesis history (I told patient I was not comfortable prescribing IV narcotics given history.) Offload LLE Doxycycline for left foot cellulitis CT left foot and LLE arterial Dopplers for additional work-up Further management pending imaging results. Anemia work-up, transfuse PRBC if hemoglobin less than 7 and or for symptomatic anemia Basal bolus insulin, ISS BG goal 110-140, carb count coverage PT OT eval DVT prophylaxis. Heparin subcu Full code Text document was generated using [employer] voice recognition software. It may contain grammatical or spelling errors. Kindly contact undersigned for clarification of any documentation item in question. Text document was generated using [employer] recognition software. It may contain grammatical or spelling errors. Kindly contact undersigned for clarification of any documentation item in question. (2) Chest pain: (3) Wound of left foot: Plan: CT foot does not show any osteomyelitis Likely related dropfoot brace Educated patient on foot care considering he is diabetic and has neuropathy Was started empirically on doxycycline on admission Wound care while inpatient Will need podiatry follow up (4) Intractable nausea and vomiting: (5) Gastroparesis: Plan: History of IBD, gastroparesis status post gastric pacemaker, symptoms better after recent pacemaker adjustment Continue antiemetics prn Monitor Symptoms seem to be improving (6) ESRD (end stage renal disease) on dialysis: Plan: Nephrology on board Got incomplete session of HD today due to hypotension Will reassess tomorrow (7) DM type 1 (diabetes mellitus, type 1): Plan: Recent hemoglobin A1c of 9.1 last October 2021 Continue insulin scale per protocol Will need good glycemic control History of COPD Metastatic NSCLC status post surgery, radiation/incomplete chemotherapy secondary to intolerance Patient not a candidate for additional treatment as per recent outpatient Oncology note Chronic anemia Monitor Seizure disorder, stable on regimen DVT ppx - hep sq Admission and Anticipated Discharge Date Admission Date: January 04, 2022 Subjective Patient seen and examined. Reports intermittent left-sided chest pain, sharp, worse with deep breath. Currently pain is not referred. Reported that it was referred to neck yesterday. Reported nausea earlier, none at this time Denied vomiting today. Reported vomiting yesterday Denied abd pain, diarrhea, constipation Denied fevers, chills Denied cough. Reports some exertional dyspnea which he reported is unchanged Reports chronic sensory deficits to touch below his neck. He stated this was due to polyneuropathy Physical Exam Constitutional: + ill appearing (chronic) and + well hydrated; no acute distress Eyes: PERRL, conjunctivae normal, anicteric sclerae ENMT: external ear and nose normal, oropharynx normal Respiratory: normal respiratory effort, lungs clear to auscultation Cardiovascular: Rate/Rhythm: regular rate and regular rhythm S1 S2 Chest (Breasts): Additional Comments: Reproducible chest wall tenderness Gastrointestinal (Abdomen): normal bowel sounds, soft, nontender, no hepatosplenomegaly Musculoskeletal: Dark eschar on lateral left foot without open wound. Edema of dorsum of left foot with some indentations which patient reported was due to brace straps Neurologic: PERRL, EOMI, accommodation nl, no face palsy, no dysarthria Psychiatric: A+Ox3, euthymic affect Results & Data Results & Data ([facility]) Vital Signs (Past 12 Hours) Vital Signs Temp Pulse Pulse Pulse Resp BP BP 01/04/22 10:45 36.5 C 86 117/73 01/04/22 10:30 70 79/49 L 01/04/22 11:38 36.4 C L 79 18 158/78 H 01/04/22 10:00 73 106/64 01/04/22 09:30 74 143/101 H 01/04/22 08:00 01/04/22 09:22 36.5 C 74 01/04/22 07:05 36.7 C 76 16 172/86 H 01/04/22 03:26 84 01/04/22 02:41 37.0 C 67 20 180/86 H 01/04/22 02:05 01/04/22 02:05 36.7 C 86 18 215/128 H 01/04/22 01:24 36.7 C 86 18 215/128 H 01/04/22 01:24 Pulse Ox Pulse Ox O2 Del Method O2 Del Method O2 Flow Rate O2 Flow Rate 01/04/22 10:45 01/04/22 10:30 01/04/22 11:38 99 Room Air 01/04/22 10:00 01/04/22 09:30 01/04/22 08:00 Nasal Cannula 2 01/04/22 09:22 01/04/22 07:05 99 Nasal Cannula 1.5 01/04/22 03:26 01/04/22 02:41 99 Nasal Cannula 2 01/04/22 02:05 Nasal Cannula 2 01/04/22 02:05 100 Nasal Cannula 2 01/04/22 01:24 100 Nasal Cannula 2 01/04/22 01:24 100 Nasal Cannula 2 Laboratory Results Abnormal lab results 01/03/22 01/03/22 01/04/22 Range/Units 16:47 16:47 00:06 RBC 2.72 L (4.63-6.08) M/uL Hgb 7.9 L (14.0-18.0) g/dl Hct 24.9 L (40.1-51.0) % MCHC 31.7 L (32.0-36.0) g/dL Lymph # (Auto) 0.78 L (1.2-3.4) K/uL APTT (21.0-31.0) Seconds Sodium 133 L (136-145) mmol/L Creatinine 4.80 H* (0.6-1.4) mg/dl BUN/Creatinine Ratio 4.0 L (10-20) Glucose 199 H (70-99(Fasting)) mg/dl POC Glucose 140 H (70-99) mg/dl Calcium 8.0 L (8.5-10.1) mg/dl Iron (35-175) mcg/dl Transferrin (200-360) mg/dl AST 7 L (13-39) U/L ALT 5 L (7-52) U/L Alkaline Phosphatase 119 H (34-104) U/L Vitamin B12 (180-914) pg/ml 01/04/22 01/04/2222 Range/Units 02:49 05:32 05:32 RBC 2.72 L (4.63-6.08) M/uL Hgb 7.8 L (14.0-18.0) g/dl Hct 24.9 L (40.1-51.0) % MCHC 31.3 L (32.0-36.0) g/dL Lymph # (Auto) 1.15 L (1.2-3.4) K/uL APTT 34.2 H (21.0-31.0) Seconds Sodium (136-145) mmol/L Creatinine (0.6-1.4) mg/dl BUN/Creatinine Ratio (10-20) Glucose (70-99(Fasting)) mg/dl POC Glucose 158 H (70-99) mg/dl Calcium (8.5-10.1) mg/dl Iron (35-175) mcg/dl Transferrin (200-360) mg/dl AST (13-39) U/L ALT (7-52) U/L Alkaline Phosphatase (34-104) U/L Vitamin B12 (180-914) pg/ml 01/04/22 01/04/22 01/04/22 Range/Units 05:32 05:32 07:07 RBC (4.63-6.08) M/uL Hgb (14.0-18.0) g/dl Hct (40.1-51.0) % MCHC (32.0-36.0) g/dL Lymph # (Auto) (1.2-3.4) K/uL APTT (21.0-31.0) Seconds Sodium 134 L (136-145) mmol/L Creatinine 5.58 H* D (0.6-1.4) mg/dl BUN/Creatinine Ratio 4.1 L (10-20) Glucose 122 H (70-99(Fasting)) mg/dl POC Glucose 109 H (70-99) mg/dl Calcium 7.9 L (8.5-10.1) mg/dl Iron 33 L (35-175) mcg/dl Transferrin 151 L (200-360) mg/dl AST (13-39) U/L ALT (7-52) U/L Alkaline Phosphatase (34-104) U/L Vitamin B12 > 1500 H (180-914) pg/ml 01/04/22 Range/Units 11:39 RBC (4.63-6.08) M/uL Hgb (14.0-18.0) g/dl Hct (40.1-51.0) % MCHC (32.0-36.0) g/dL Lymph # (Auto) (1.2-3.4) K/uL APTT (21.0-31.0) Seconds Sodium (136-145) mmol/L Creatinine (0.6-1.4) mg/dl BUN/Creatinine Ratio (10-20) Glucose (70-99(Fasting)) mg/dl POC Glucose 105 H (70-99) mg/dl Calcium (8.5-10.1) mg/dl Iron (35-175) mcg/dl Transferrin (200-360) mg/dl AST (13-39) U/L ALT (7-52) U/L Alkaline Phosphatase (34-104) U/L Vitamin B12 (180-914) pg/ml (1) Chest pain Chest pain type: unspecified Qualified Code(s): R07.9 - Chest pain, unspecified
[2022-01-04] MEDS ORDERED: FAMOTIDINE 10 MG TABLET PO ONE (12:32)
[2022-01-04] MEDS ORDERED: Nursing to Pharmacy Communication SCH (13:45)
[2022-01-04] MEDS: fentaNYL 75 MCG/HR TDSY TD SCH (15:16)
--- NOTE | 2022-01-04 15:17 | Ultrasound Report ---
US arterial duplex LE LT CLINICAL HISTORY: Weak left lower extremity pulses. COMPARISON STUDY: None. FINDINGS: Normal velocities and triphasic to biphasic waveforms seen within the left common femoral, superficial femoral, popliteal, and posterior tibial arteries. There are monophasic waveforms and nor mal velocities within the left anterior tibial, peroneal, dorsalis pedis arteries. There are scattere d calcified plaque seen throughout the left lower extremity vertebral systems. No high-grade stenosis or occlusion identified. Ankle-brachial indices were inadequate due to the noncompressible arteries. IMPRESSION: 1. No high-grade stenosis or occlusion within the left lower extremity arterial system. 2. Monophasic normal velocity waveforms seen within the left anterior tibial, peroneal, and dorsalis pedis arteries consistent with diffuse atherosclerotic disease. ACT 112: Negative or not required by law. Electronically signed by: Danilo Langley M.D. 01/04/2022 3:15 PM
[2022-01-04] MEDS: ACETAMINOPHEN 325 MG TAB PO SCH ×2 (15:45→21:05)
[2022-01-04] MEDS: HEPARIN SOD (PORCINE) 1000 UNIT/ML IV SCH ×2 (15:45→15:46)
--- NOTE | 2022-01-04 17:37 | Dialysis Progress Note ---
Date of Service January 04, 2022 Assessment & Plan (1) ESRD (end stage renal disease) on dialysis: Plan: extra tx today to help improve HTN w/ goal 3 L fluid removal >> however shortly after starting treatment his blood pressure dropped to 80s systolic w/ symptoms; we gave him saline back and ultimately removed only about 400 mL of fluid w/ post tx SBP 117 >stopped tx after about 90 minutes >eval for further treatment in AM >of note he'd not had his bp meds this am before tx and still bp dropped (2) Hypertensive urgency: Plan: labile blood pressures >continue lisinopril 40 mg, >increased amlodipine to 10 mg hs -continue clonidine patch -trial of coreg watching HR carefully >>no clear cause at this time; ? relation to CA dx or to his severe autonomic dysfunction w/ DM Admission and Anticipated Discharge Date Admission Date: January 04, 2022 Subjective evaluated pt b/c he wasn't tolerating tx well >> dropping sbp; mild pleuritic chest pain; not confused, no n/v Review of Systems Review of Systems: All systems reviewed & are unremarkable except as noted in Subjective Physical Exam Constitutional: well developed and well nourished Eyes: EOM intact bilaterally ENMT: Ears: no external ear abnormality Nose: no external nose abnormality Mouth: + dry oral mucous membranes Neck: no nuchal rigidity Respiratory: normal respiratory effort Auscultation: + diminished lung sounds Cardiovascular: Rate/Rhythm: regular rate and regular rhythm Extremities: + edema (trace) Gastrointestinal (Abdomen): Inspection/Auscultation: normal bowel sounds Percussion/Palpation: abdomen soft; abdomen nontender Musculoskeletal: Extremities: strength 5/5 throughout Skin: no rashes, warm and dry leg wound not examined Psychiatric: Orientation: oriented x 3 Results & Data ([facility]) Vital Signs (Past 12 Hours) Vital Signs Temp Pulse Pulse Pulse Resp BP BP 01/04/22 15:12 36.6 C 82 18 198/98 H 01/04/22 10:45 36.5 C 86 117/73 01/04/22 10:30 70 79/49 L 01/04/22 11:38 36.4 C L 79 18 158/78 H 01/04/22 10:00 73 106/64 01/04/22 09:30 74 143/101 H 01/04/22 08:00 01/04/22 09:22 36.5 C 74 01/04/22 07:05 36.7 C 76 16 172/86 H Pulse Ox O2 Del Method O2 Flow Rate 01/04/22 15:12 97 Room Air 01/04/22 10:45 01/04/22 10:30 01/04/22 11:38 99 Room Air 01/04/22 10:00 01/04/22 09:30 01/04/22 08:00 Nasal Cannula 2 01/04/22 09:22 01/04/22 07:05 99 Nasal Cannula 1.5 Laboratory Results reviewed
--- NOTE | 2022-01-04 17:40 | Electrocardiogram Report ---
Test Reason : Blood Pressure : / mmHG Vent. Rate : 087 BPM Atrial Rate : 087 BPM P-R Int : 154 ms QRS Dur : 098 ms QT Int : 394 ms P-R-T Axes : 042 -09 063 degrees QTc Int : 474 ms Poor data quality, interpretation may be adversely affected Normal sinus rhythm When compared with ECG of 30-DEC-2021 17:14, No significant change was found Confirmed by Zuhair Summers ([id number]) on 01/04/2022 5:39:35 PM Referred By: REFERRED SELF Confirmed By:Aki Summers
--- NOTE | 2022-01-04 17:53 | Electrocardiogram Report ---
Test Reason : Blood Pressure : / mmHG Vent. Rate : 074 BPM Atrial Rate : 074 BPM P-R Int : 168 ms QRS Dur : 100 ms QT Int : 444 ms P-R-T Axes : 016 -19 -02 degrees QTc Int : 492 ms Normal sinus rhythm Abnormal ECG When compared with ECG of 03-JAN-2022 16:26, (unconfirmed) Nonspecific T wave abnormality now evident in Inferior leads Confirmed by Zuhair Summers ([id number] on 01/04/2022 5:52:40 PM Referred By: REFERRED SELF Confirmed By:Aki Summers
[2022-01-04] MEDS ORDERED: HEPARIN SOD 5,000 UNIT/0.5 ML VIAL SQ SCH (21:00)
[2022-01-04] MEDS ORDERED: amLODIPine BESYLATE 5 MG TAB PO SCH (21:00)
[2022-01-04] MEDS: carvediloL 6.25 MG TAB PO SCH (21:03)
[2022-01-04] MEDS: DOXYCYCLINE HYCLATE 100 MG CAP PO SCH (21:03)
[2022-01-04] MEDS: amLODIPine BESYLATE 5 MG TAB PO SCH (21:04)
[2022-01-04] MEDS: LANTUS PER UNIT CHARGE SQ SCH (21:12)
[2022-01-05] MEDS: ACETAMINOPHEN 325 MG TAB PO SCH ×4 (03:20→20:24)
[2022-01-05 06:31] LABS: Hematocrit (blood only) 23.8 % (40.1-51.0); Hemoglobin 7.2 g/dl (14.0-18.0); Mean Corpuscular Hemoglobin 28.2 pg (25.0-34.0); Mean Corpuscular Hgb Conc 30.3 g/dL (32.0-36.0); Mean Corpuscular Volume 93.3 fL (80.0-100.0); Mean Platelet Volume 10.4 fL (9.4-12.4); Platelet Count 275 K/uL (130-400); RDW Coefficient of Variation 13.4 % (11.5-14.5); Red Blood Count 2.55 M/uL (4.63-6.08); White Blood Count 4.52 K/ul (4.8-10.8)
[2022-01-05] MEDS: HYDROmorphone HCL 2 MG TAB PO PRN ×4 (06:46→19:45)
[2022-01-05 07:11] LABS: BUN Creatinine Ratio 4.7 (10-20); Calcium 7.4 mg/dl (8.5-10.1); Creatinine Clr Calc Pharmacy 13.4 ml/min; Est GFR (African American) 11.2 ml/min; Est GFR (Non-African American) 9.7 ml/min; Potassium 4.6 mmol/L (3.5-5.1)
[2022-01-05] MEDS ORDERED: HEPARIN SOD (PORCINE) 1000 UNIT/ML IV ONE (07:37)
[2022-01-05] MEDS ORDERED: SODIUM CHLORIDE 0.9% 1000ML 1,000 ML IV PRN (07:37)
[2022-01-05] MEDS ORDERED: SODIUM CHLORIDE 0.9% 250 ML IV PRN (07:53)
[2022-01-05] MEDS: INSULIN ASPART PER UNIT SC SCH ×4 (08:11→20:23)
[2022-01-05] MEDS: CHECK fentaNYL PATCH PLACEMENT SCH ×3 (08:12→23:01)
[2022-01-05] MEDS: CHECK CLONIDINE PATCH PLACEMENT SCH ×3 (08:12→23:00)
[2022-01-05] MEDS: DOCUSATE SODIUM/SENNA 50/8.6MG TAB PO SCH (08:15)
[2022-01-05] MEDS: FLUTICASONE/VILANTEROL 200/25MCG 14 PUFFS/INHALER INH SCH (08:15)
[2022-01-05] MEDS: DOXYCYCLINE HYCLATE 100 MG CAP PO SCH ×2 (08:15→19:46)
[2022-01-05] MEDS: GABAPENTIN 400 MG CAP PO SCH ×3 (08:18→19:47)
[2022-01-05] MEDS: ADVANCED PROBIOTIC 1250 MG CAPSULE PO SCH (08:18)
[2022-01-05] MEDS: METOCLOPRAMIDE HCL 5 MG TABLET PO SCH (08:19)
[2022-01-05] MEDS: levETIRAcetam 250 MG TAB PO SCH ×2 (08:19→19:49)
[2022-01-05] MEDS: PANTOprazole 40 MG TAB PO SCH (08:20)
[2022-01-05] MEDS ORDERED: fentaNYL 75 MCG/HR TDSY TD SCH (09:00)
[2022-01-05 10:32] LABS: HBSAG NON-REACTIVE (NON-REACTIVE); Hepatitis B Core Antibody Total NON-REACTIVE (NON-REACTIVE); Hepatitis B Surface Ab, Quant 408 mIU/mL (> OR = 10)
--- NOTE | 2022-01-05 12:00 | Hospitalist Progress Note ---
Date of Service January 05, 2022 Assessment & Plan (1) Chest pain: (2) Hypertensive crisis: Plan: Presenting as headache and chest pain symptoms ?Hypertensive emergency Patient reports chronic intermittent generalized body pains for which he is on opioids (confirmed on PDMP) Concern for possible poor med adherence considering recurrent admissions; likely complicated by nausea/vomiting related to gastroparesis Continue lisinopril, clonidine Continue amlodipine added BP dropped during HD yesterday. Hence, HD was incomplete Will get HD today BP is better than on admisson Chest pain appear atypical, likely MSK. Trop is normal. No ACS on EKG. Echo noted normal LV size with moderate concentric LVH without segmental wall motion abnormalities, EF of 55 to 60%. Continue pain regimen. Pain control. If chest pain persists, will get CT chest for better assessment (3) Wound of left foot: Plan: CT foot does not show any osteomyelitis Related to dropfoot brace which was quite tight Ortho eval appreciated Educated patient on foot care considering he is diabetic and has neuropathy Stop empirically doxycycline for now Wound care while inpatient Will need podiatry follow up (4) Intractable nausea and vomiting: (5) Gastroparesis: Plan: History of IBD, gastroparesis status post gastric pacemaker, symptoms better after recent pacemaker adjustment Continue antiemetics prn Monitor Symptoms improved (6) ESRD (end stage renal disease) on dialysis: Plan: Nephrology on board Will get HD today (7) DM type 1 (diabetes mellitus, type 1): Plan: Recent hemoglobin A1c of 9.1 last October 2021 Continue insulin scale per protocol Will need good glycemic control History of COPD Metastatic NSCLC status post surgery, radiation/incomplete chemotherapy secondary to intolerance Patient not a candidate for additional treatment as per recent outpatient Oncology note Chronic anemia Worsening anemia. No obvious blood loss Hb is 7.2 today Discussed with Assistant Accounting Manager. Will get 1 PRBC with HD today Monitor Seizure disorder, stable on regimen Admission and Anticipated Discharge Date Admission Date: January 04, 2022 Subjective Patient seen and examined. Continues to report intermittent left-sided chest pain Denied nausea or vomiting today. Denied abd pain, diarrhea, constipation Denied fevers, chills Denied cough. Reports some exertional dyspnea which he reported is unchanged Reports chronic sensory deficits to touch below his neck. He stated this was due to polyneuropathy Reports he has chronic intermittent generalized pains for which he is on chronic fentanyl patch and dilaudid prn Physical Exam 2 Constitutional: + well hydrated; no acute distress Eyes: PERRL, conjunctivae normal, anicteric sclerae ENMT: external ear and nose normal, oropharynx normal Respiratory: normal respiratory effort, lungs clear to auscultation Cardiovascular: Rate/Rhythm: regular rate and regular rhythm S1 S2 Chest (Breasts): Additional Comments: Tenderness to chest wall palpation Gastrointestinal (Abdomen): normal bowel sounds, soft, nontender, no hepatosplenomegaly Musculoskeletal: Tenderness on palpation of left arm. No step/wound/skin tear or redness Dark eschar on lateral left foot without open wound. Neurologic: PERRL, EOMI, accommodation nl, no face palsy, no dysarthria Psychiatric: A+Ox3, euthymic affect Results & Data Results & Data ([facility]) Vital Signs (Past 12 Hours) Vital Signs Temp Pulse Pulse Pulse Resp BP Pulse Ox 01/05/22 08:00 01/05/22 07:45 36.6 C 85 22 144/100 H 97 01/05/22 03:03 36.6 C 71 18 110/68 98 01/05/22 00:05 78 01/05/22 01:24 Pulse Ox O2 Del Method O2 Del Method O2 Flow Rate O2 Flow Rate 01/05/22 08:00 Nasal Cannula 2 01/05/22 07:45 Room Air 01/05/22 03:03 01/05/22 00:05 01/05/22 01:24 94 Nasal Cannula 2 Laboratory Results Abnormal lab results 01/04/22 01/04/22 01/05/22 Range/Units 16:26 19:58 05:57 WBC 4.52 L (4.8-10.8) K/ul RBC 2.55 L (4.63-6.08) M/uL Hgb 7.2 L (14.0-18.0) g/dl Hct 23.8 L (40.1-51.0) % MCHC 30.3 L (32.0-36.0) g/dL Sodium (136-145) mmol/L BUN (6-23) mg/dl Creatinine (0.6-1.4) mg/dl BUN/Creatinine Ratio (10-20) Glucose (70-99(Fasting)) mg/dl POC Glucose 201 H 118 H (70-99) mg/dl Calcium (8.5-10.1) mg/dl Crossmatch 01/05/22 01/05/22 01/05/22 Range/Units 05:57 07:17 08:03 WBC (4.8-10.8) K/ul RBC (4.63-6.08) M/uL Hgb (14.0-18.0) g/dl Hct (40.1-51.0) % MCHC (32.0-36.0) g/dL Sodium 134 L (136-145) mmol/L BUN 28 H (6-23) mg/dl Creatinine 5.97 H* D (0.6-1.4) mg/dl BUN/Creatinine Ratio 4.7 L (10-20) Glucose 165 H (70-99(Fasting)) mg/dl POC Glucose 186 H (70-99) mg/dl Calcium 7.4 L (8.5-10.1) mg/dl Crossmatch See Detail 01/05/22 01/05/22 Range/Units 10:14 11:13 WBC (4.8-10.8) K/ul RBC (4.63-6.08) M/uL Hgb (14.0-18.0) g/dl Hct (40.1-51.0) % MCHC (32.0-36.0) g/dL Sodium (136-145) mmol/L BUN (6-23) mg/dl Creatinine (0.6-1.4) mg/dl BUN/Creatinine Ratio (10-20) Glucose (70-99(Fasting)) mg/dl POC Glucose 65 L* 130 H (70-99) mg/dl Calcium (8.5-10.1) mg/dl Crossmatch (1) Chest pain Chest pain type: unspecified Qualified Code(s): R07.9 - Chest pain, unspecified
[2022-01-05] MEDS: carvediloL 6.25 MG TAB PO SCH ×2 (14:05→19:48)
[2022-01-05] MEDS: lisinopril 40 MG TAB PO SCH (14:05)
[2022-01-05] MEDS: HEPARIN SOD (PORCINE) 1000 UNIT/ML IV SCH (14:57)
[2022-01-05] MEDS: NICOTINE 14 MG/24 HR PATCH TD SCH (16:48)
--- NOTE | 2022-01-05 19:14 | Nephrology Progress Note ---
Date of Service January 05, 2022 Assessment & Plan (1) ESRD (end stage renal disease) on dialysis: Plan: extra tx 01/04 to help improve HTN w/ goal 3 L fluid removal >> however shortened tx to 90 min b/c blood pressure dropped to 80s systolic w/ symptoms; we gave him saline back and ultimately removed only about 400 mL of fluid w/ post tx SBP 117 >tolerated 2L UF today >next HD on Sat/Mon as conditions dictate >of note he'd not had his bp meds this am before tx and still bp dropped (2) Hypertensive urgency: Plan: labile blood pressures but overall improved today >continue lisinopril 40 mg, >increased amlodipine to 10 mg hs 01/04 -continue clonidine patch -trial of coreg watching HR carefully >>no clear cause at this time; ? relation to CA dx or to his severe autonomic dysfunction w/ DM Admission and Anticipated Discharge Date Admission Date: January 04, 2022 Subjective seen on rounds this am; still w/ pain retrosternal L side, L arm. no n/v; tolerating po Review of Systems Review of Systems: All systems reviewed & are unremarkable except as noted in Subjective Physical Exam Constitutional: well developed and well nourished Eyes: EOM intact bilaterally ENMT: Ears: no external ear abnormality Nose: no external nose abnormality Mouth: + dry oral mucous membranes Neck: no nuchal rigidity Respiratory: normal respiratory effort Auscultation: + diminished lung sounds Cardiovascular: Rate/Rhythm: regular rate and regular rhythm Extremities: + edema (trace) Gastrointestinal (Abdomen): Inspection/Auscultation: normal bowel sounds P ercussion/Palpation: abdomen soft; abdomen nontender Musculoskeletal: Extremities: strength 5/5 throughout Skin: no rashes, warm and dry Psychiatric: Orientation: oriented x 3 Results & Data ([facility]) Vital Signs (Past 12 Hours) Vital Signs Temp Pulse Pulse Pulse Resp BP BP 01/05/22 19:04 36.6 C 79 18 141/78 H 01/05/22 16:00 81 01/05/22 15:10 36.5 C 75 158/65 H 01/05/22 15:00 81 149/80 H 01/05/22 14:30 82 156/65 H 01/05/22 14:00 80 157/103 H 01/05/22 13:30 77 140/81 01/05/22 13:15 36.5 C 76 16 143/84 H 01/05/22 13:00 77 128/79 01/05/22 12:30 75 91/56 L 01/05/22 12:15 56 L 111/70 01/05/22 12:00 36.5 C 77 01/05/22 12:45 36.5 C 75 16 83/60 L 01/05/22 12:29 36.5 C 58 L 16 96/54 L 01/05/22 12:03 36.7 C 76 16 116/70 01/05/22 08:00 01/05/22 07:45 36.6 C 85 22 144/100 H Pulse Ox O2 Del Method O2 Flow Rate 01/05/22 19:04 92 Room Air 01/05/22 16:00 01/05/22 15:10 01/05/22 15:00 01/05/22 14:30 01/05/22 14:00 01/05/22 13:30 01/05/22 13:15 01/05/22 13:00 01/05/22 12:30 01/05/22 12:15 01/05/22 12:00 01/05/22 12:45 01/05/22 12:29 01/05/22 12:03 100 Room Air 01/05/22 08:00 Nasal Cannula 2 01/05/22 07:45 97 Room Air Laboratory Results 01/05/22 05:57 01/05/22 05:57
[2022-01-05] MEDS: OLANZAPINE 2.5 MG TAB PO SCH (19:47)
[2022-01-05] MEDS: amLODIPine BESYLATE 5 MG TAB PO SCH (19:48)
[2022-01-05] MEDS: LANTUS PER UNIT CHARGE SQ SCH (20:24)
[2022-01-06] MEDS: HYDROmorphone HCL 2 MG TAB PO PRN ×7 (01:34→23:42)
[2022-01-06] MEDS ORDERED: DICLOFENAC SOD 1% GEL 100 GM TUBE EXT PRN (01:57)
[2022-01-06] MEDS: ACETAMINOPHEN 325 MG TAB PO SCH ×4 (02:38→20:21)
[2022-01-06] MEDS: ZOLPIDEM TARTRATE 5 MG TAB PO PRN ×3 (03:49→23:42)
[2022-01-06] MEDS ORDERED: HYDROmorphone INJ 1 MG/ML SYRINGE IV PRN (05:39)
[2022-01-06 07:24] LABS: Hematocrit (blood only) 25.9 % (40.1-51.0); Mean Corpuscular Hemoglobin 28.5 pg (25.0-34.0); Mean Corpuscular Hgb Conc 30.9 g/dL (32.0-36.0); Mean Corpuscular Volume 92.2 fL (80.0-100.0); Mean Platelet Volume 10.8 fL (9.4-12.4); Platelet Count 252 K/uL (130-400); RDW Coefficient of Variation 13.5 % (11.5-14.5); RDW Standard Deviation 45.9 fL (36.4-46.3); Red Blood Count 2.81 M/uL (4.63-6.08)
[2022-01-06 08:02] LABS: BUN Creatinine Ratio 5.5 (10-20); Calcium 7.5 mg/dl (8.5-10.1); Creatinine Clr Calc Pharmacy 16.3 ml/min; Est GFR (African American) 14.2 ml/min; Est GFR (Non-African American) 12.2 ml/min; Potassium 4.1 mmol/L (3.5-5.1)
[2022-01-06] MEDS: lisinopril 40 MG TAB PO SCH (08:27)
[2022-01-06] MEDS: carvediloL 6.25 MG TAB PO SCH ×2 (08:27→19:46)
[2022-01-06] MEDS: ADVANCED PROBIOTIC 1250 MG CAPSULE PO SCH (08:27)
[2022-01-06] MEDS: METOCLOPRAMIDE HCL 5 MG TABLET PO SCH (08:28)
[2022-01-06] MEDS: DOXYCYCLINE HYCLATE 100 MG CAP PO SCH ×2 (08:28→19:47)
[2022-01-06] MEDS: FLUTICASONE/VILANTEROL 200/25MCG 14 PUFFS/INHALER INH SCH (08:28)
[2022-01-06] MEDS: PANTOprazole 40 MG TAB PO SCH (08:28)
[2022-01-06] MEDS: GABAPENTIN 400 MG CAP PO SCH ×3 (08:28→19:47)
[2022-01-06] MEDS: levETIRAcetam 250 MG TAB PO SCH ×2 (08:29→19:45)
[2022-01-06] MEDS: DOCUSATE SODIUM/SENNA 50/8.6MG TAB PO SCH (08:37)
[2022-01-06] MEDS: INSULIN ASPART PER UNIT SC SCH ×4 (08:37→21:23)
[2022-01-06] MEDS: NICOTINE 14 MG/24 HR PATCH TD SCH (09:30)
[2022-01-06] MEDS: CHECK CLONIDINE PATCH PLACEMENT SCH ×3 (09:48→23:42)
[2022-01-06] MEDS: CHECK fentaNYL PATCH PLACEMENT SCH ×3 (09:49→23:42)
--- NOTE | 2022-01-06 12:10 | Hospitalist Progress Note ---
Date of Service January 06, 2022 Assessment & Plan (1) Chest pain: (2) Hypertensive crisis: Plan: Presenting as headache and chest pain symptoms ?Hypertensive emergency Patient reports chronic intermittent generalized body pains for which he is on opioids (confirmed on PDMP) Concern for possible poor med adherence considering recurrent admissions; likely complicated by nausea/vomiting related to gastroparesis Continue lisinopril, clonidine Continue amlodipine and carvedilol started Had an episode of hypotension overnight. Had gotten dilaudid IV and ambien overnight. This may be related to that plus antihypertensives Chest pain appear atypical, likely MSK. Trop is normal. No ACS on EKG. Echo noted normal LV size with moderate concentric LVH without segmental wall motion abnormalities, EF of 55 to 60%. Pain likely related to metastatic lesions to ribs/chest wall. Had metastatic lesions on CT chest from 07/[address] at [facility] just prior to presentation. Discussed with RN to get the records Continue pain regimen. Stop iv dilaudid for now. Continue po dilaudid and fentanyl patch (3) Wound of left foot: Plan: CT foot does not show any osteomyelitis Related to dropfoot brace which was quite tight Ortho eval appreciated Educated patient on foot care considering he is diabetic and has neuropathy Wound care while inpatient Will need podiatry follow up (4) Intractable nausea and vomiting: (5) Gastroparesis: Plan: History of IBD, gastroparesis status post gastric pacemaker, symptoms better after recent pacemaker adjustment Continue antiemetics prn Symptoms resolved for now (6) ESRD (end stage renal disease) on dialysis: Plan: Nephrology on board Getting HD on schedule (7) DM type 1 (diabetes mellitus, type 1): Plan: Recent hemoglobin A1c of 9.1 last October 2021 Continue insulin scale per protocol Will need good glycemic control History of COPD Metastatic NSCLC status post surgery, radiation/incomplete chemotherapy secondary to intolerance Patient not a candidate for additional treatment as per recent outpatient Oncology note Chronic anemia Worsening anemia. No obvious blood loss S/p 1 PRBC with HD on 01/05/22 Hb is 8 today Monitor Seizure disorder, stable on regimen Patient reported he will like to discuss GOC with senior capital markets specialist Awaiting Palliative eval Admission and Anticipated Discharge Date Admission Date: January 04, 2022 Subjective Patient seen and examined. Continues to report intermittent left-sided chest pain, moderate,occasionally involves left shoulder Denied nausea or vomiting today. Denied abd pain, diarrhea, constipation Denied fevers, chills Denied cough. Reports chronic exertional dyspnea Reports chronic sensory deficits to touch below his neck. He stated this was due to polyneuropathy Physical Exam Constitutional: + ill appearing (chronic) and + well hydrated; no acute distress Eyes: PERRL, conjunctivae normal, anicteric sclerae ENMT: external ear and nose normal, oropharynx normal Respiratory: normal respiratory effort, lungs clear to auscultation Cardiovascular: Rate/Rhythm: regular rate and regular rhythm S1 S2 Chest (Breasts): Additional Comments: Chest wall tenderness Gastrointestinal (Abdomen): normal bowel sounds, soft, nontender, no hepatosplenomegaly Musculoskeletal: Dark eschar on lateral left foot without open wound. Neurologic: PERRL, EOMI, accommodation nl, no face palsy, no dysarthria Psychiatric: A+Ox3, euthymic affect Results & Data Results & Data ([facility]) Vital Signs (Past 12 Hours) Vital Signs Temp Pulse Pulse Pulse Resp BP Pulse Ox 01/06/22 10:39 36.4 C L 73 17 153/87 H 97 01/06/22 10:08 70 01/06/22 09:56 01/06/22 07:01 36.4 C L 75 17 142/80 H 97 01/06/22 03:50 105/72 01/06/22 03:00 37.0 C 77 18 90/56 L 97 01/06/22 01:00 Pulse Ox O2 Del Method O2 Del Method 01/06/22 10:39 Room Air 01/06/22 10:08 01/06/22 09:56 Room Air 01/06/22 07:01 Room Air 01/06/22 03:50 01/06/22 03:00 Room Air 01/06/22 01:00 95 Room Air Laboratory Results Abnormal lab results 01/05/22 01/05/22 01/06/22 Range/Units 16:10 20:10 05:28 WBC 4.30 L (4.8-10.8) K/ul RBC 2.81 L (4.63-6.08) M/uL Hgb 8.0 L (14.0-18.0) g/dl Hct 25.9 L (40.1-51.0) % MCHC 30.9 L (32.0-36.0) g/dL Sodium (136-145) mmol/L BUN (6-23) mg/dl Creatinine (0.6-1.4) mg/dl BUN/Creatinine Ratio (10-20) Glucose (70-99(Fasting)) mg/dl POC Glucose 215 H 132 H (70-99) mg/dl Calcium (8.5-10.1) mg/dl 01/06/22 01/06/22 01/06/22 Range/Units 05:28 06:56 08:25 WBC (4.8-10.8) K/ul RBC (4.63-6.08) M/uL Hgb (14.0-18.0) g/dl Hct (40.1-51.0) % MCHC (32.0-36.0) g/dL Sodium 135 L (136-145) mmol/L BUN 27 H (6-23) mg/dl Creatinine 4.91 H* D (0.6-1.4) mg/dl BUN/Creatinine Ratio 5.5 L (10-20) Glucose 169 H (70-99(Fasting)) mg/dl POC Glucose 169 H 166 H (70-99) mg/dl Calcium 7.5 L (8.5-10.1) mg/dl 01/06/22 01/06/22 Range/Units 11:05 12:57 WBC (4.8-10.8) K/ul RBC (4.63-6.08) M/uL Hgb (14.0-18.0) g/dl Hct (40.1-51.0) % MCHC (32.0-36.0) g/dL Sodium (136-145) mmol/L BUN (6-23) mg/dl Creatinine (0.6-1.4) mg/dl BUN/Creatinine Ratio (10-20) Glucose (70-99(Fasting)) mg/dl POC Glucose 123 H 115 H (70-99) mg/dl Calcium (8.5-10.1) mg/dl (1) Chest pain Chest pain type: unspecified Qualified Code(s): R07.9 - Chest pain, unspecified
[2022-01-06] MEDS: PROMETHAZINE HCL 12.5 MG in SODIUM CHLORIDE 0.9% 50 ML IV PRN (12:47)
[2022-01-06] MEDS: amLODIPine BESYLATE 5 MG TAB PO SCH (19:45)
[2022-01-06] MEDS: OLANZAPINE 2.5 MG TAB PO SCH (20:21)
[2022-01-06] MEDS: LANTUS PER UNIT CHARGE SQ SCH (21:24)
[2022-01-06] MEDS: HYDROmorphone INJ 1 MG/ML SYRINGE IV PRN (21:44)
[2022-01-07] MEDS: HYDROmorphone HCL 2 MG TAB PO PRN ×6 (02:43→23:46)
[2022-01-07] MEDS: ZOLPIDEM TARTRATE 5 MG TAB PO PRN (02:43)
[2022-01-07] MEDS: ACETAMINOPHEN 325 MG TAB PO SCH ×4 (02:43→20:48)
[2022-01-07] MEDS: INSULIN ASPART PER UNIT SC SCH ×6 (02:47→20:46)
[2022-01-07] MEDS: HYDROmorphone INJ 1 MG/ML SYRINGE IV PRN ×2 (04:56→21:00)
[2022-01-07 06:35] LABS: Hematocrit (blood only) 27.7 % (40.1-51.0); Hemoglobin 8.5 g/dl (14.0-18.0); Mean Corpuscular Hemoglobin 28.2 pg (25.0-34.0); Mean Corpuscular Hgb Conc 30.7 g/dL (32.0-36.0); Mean Platelet Volume 10.8 fL (9.4-12.4); Platelet Count 274 K/uL (130-400); RDW Coefficient of Variation 13.2 % (11.5-14.5); RDW Standard Deviation 44.4 fL (36.4-46.3); Red Blood Count 3.01 M/uL (4.63-6.08); White Blood Count 5.23 K/ul (4.8-10.8)
[2022-01-07 07:12] LABS: BUN Creatinine Ratio 6.8 (10-20); Calcium 7.8 mg/dl (8.5-10.1); Creatinine Clr Calc Pharmacy 12.7 ml/min; Est GFR (African American) 10.5 ml/min; Potassium 3.8 mmol/L (3.5-5.1)
[2022-01-07] MEDS: NICOTINE 14 MG/24 HR PATCH TD SCH (08:19)
[2022-01-07] MEDS: GABAPENTIN 400 MG CAP PO SCH ×3 (08:21→20:58)
[2022-01-07] MEDS: PANTOprazole 40 MG TAB PO SCH (08:21)
[2022-01-07] MEDS: levETIRAcetam 250 MG TAB PO SCH ×2 (08:22→20:59)
[2022-01-07] MEDS: DOXYCYCLINE HYCLATE 100 MG CAP PO SCH ×2 (08:22→20:57)
[2022-01-07] MEDS: METOCLOPRAMIDE HCL 5 MG TABLET PO SCH (08:22)
[2022-01-07] MEDS: carvediloL 6.25 MG TAB PO SCH ×2 (08:22→20:58)
[2022-01-07] MEDS: lisinopril 40 MG TAB PO SCH (08:22)
[2022-01-07] MEDS: DOCUSATE SODIUM/SENNA 50/8.6MG TAB PO SCH (08:23)
[2022-01-07] MEDS: ADVANCED PROBIOTIC 1250 MG CAPSULE PO SCH (08:23)
[2022-01-07] MEDS: FLUTICASONE/VILANTEROL 200/25MCG 14 PUFFS/INHALER INH SCH (08:23)
[2022-01-07] MEDS: fentaNYL 75 MCG/HR TDSY TD SCH (08:32)
[2022-01-07] MEDS: CHECK fentaNYL PATCH PLACEMENT SCH ×3 (08:33→23:59)
[2022-01-07] MEDS: CHECK CLONIDINE PATCH PLACEMENT SCH ×3 (08:33→23:58)
[2022-01-07] MEDS: HEPARIN 100 UNIT/ML 5ML FLUSH FLUSH PRN (08:52)
--- NOTE | 2022-01-07 11:17 | Hospitalist Progress Note ---
Date of Service January 07, 2022 Assessment & Plan (1) Chest pain: Plan: Chest pain is atypical,. Trop is normal. No ACS on EKG. Echo noted normal LV size with moderate concentric LVH without segmental wall motion abnormalities, EF of 55 to 60%. History of COPD Metastatic NSCLC status post surgery, radiation/incomplete chemotherapy secondary to intolerance Patient not a candidate for additional treatment as per recent outpatient Oncology note CT chest done today showed new bony lesions at T8, left 8th rib as well as T5-6, stable destructive lesion on left 9th rib, interval enlargement of left axillary node and stable Left upper pleural based mass Continue po dilaudid and fentanyl patch Spent 30mins discussing goals of care with patient He understands progression of his cancer. He insists he wants to continue Full code for now and think about his code status more We discussed pain management and hospice care He stated he is open to more conversation but has not decided on plans for now. He will like to discuss with software quality assurance specialist Awaiting Palliative Care evaluation Continue pain management (2) Hypertensive crisis: Plan: Presenting as headache and chest pain symptoms ?Hypertensive emergency Patient reports chronic intermittent generalized body pains for which he is on opioids (confirmed on PDMP) Concern for possible poor med adherence considering recurrent admissions; likely complicated by nausea/vomiting related to gastroparesis Continue lisinopril, clonidine Continue amlodipine and carvedilol started (3) Wound of left foot: Plan: CT foot does not show any osteomyelitis Related to dropfoot brace which was quite tight Ortho eval appreciated Wound care while inpatient Will need podiatry follow up (4) Intractable nausea and vomiting: (5) Gastroparesis: Plan: History of IBD, gastroparesis status post gastric pacemaker, symptoms better after recent pacemaker adjustment Continue antiemetics prn Symptoms resolved for now (6) ESRD (end stage renal disease) on dialysis: Plan: Nephrology on board Getting HD on schedule (7) DM type 1 (diabetes mellitus, type 1): Plan: Recent hemoglobin A1c of 9.1 last October 2021 Continue insulin scale per protocol Will need good glycemic control Chronic anemia Worsening anemia. No obvious blood loss S/p 1 PRBC with HD on 01/05/22 Hb is 8.5 today Monitor Seizure disorder, stable on regimen Admission and Anticipated Discharge Date Admission Date: January 04, 2022 Subjective Patient seen and examined. Continues to report intermittent left-sided chest pain States pain meds help briefly Denied nausea, vomiting, abd pain, diarrhea, constipation Denied fevers, chills Denied cough. Reports chronic exertional dyspnea Has chronic sensory deficits to touch below his neck. He stated this was due to polyneuropathy Physical Exam Constitutional: + ill appearing (chronic) and + well hydrated; no acute distress Eyes: PERRL, conjunctivae normal, anicteric sclerae ENMT: external ear and nose normal, oropharynx normal Respiratory: normal respiratory effort, lungs clear to auscultation Cardiovascular: Rate/Rhythm: regular rate and regular rhythm Chest (Breasts): Additional Comments: Chest wall tenderness Gastrointestinal (Abdomen): normal bowel sounds, soft, nontender, no hepatosplenomegaly Musculoskeletal: + pedal edema Neurologic: PERRL, EOMI, accommodation nl, no face palsy, no dysarthria Psychiatric: A+Ox3, euthymic affect Results & Data Results & Data ([facility]) Vital Signs (Past 12 Hours) Vital Signs Temp Pulse Pulse Pulse Resp BP Pulse Ox 01/07/22 07:30 01/07/22 07:00 37.1 C 79 18 108/64 95 01/07/22 06:57 80 01/07/22 02:59 37.1 C 81 18 129/88 95 01/07/22 01:00 Pulse Ox O2 Del Method O2 Del Method 01/07/22 07:30 Room Air 01/07/22 07:00 Room Air 01/07/22 06:57 01/07/22 02:59 Room Air 01/07/22 01:00 96 Room Air Laboratory Results Abnormal lab results 01/06/22 01/06/22 01/07/22 Range/Units 16:17 20:00 02:40 RBC (4.63-6.08) M/uL Hgb (14.0-18.0) g/dl Hct (40.1-51.0) % MCHC (32.0-36.0) g/dL Sodium (136-145) mmol/L BUN (6-23) mg/dl Creatinine (0.6-1.4) mg/dl BUN/Creatinine Ratio (10-20) Glucose (70-99(Fasting)) mg/dl POC Glucose 126 H 151 H 307 H* (70-99) mg/dl Calcium (8.5-10.1) mg/dl 01/07/22 01/07/22 01/07/22 Range/Units 05:45 05:45 05:50 RBC 3.01 L (4.63-6.08) M/uL Hgb 8.5 L (14.0-18.0) g/dl Hct 27.7 L (40.1-51.0) % MCHC 30.7 L (32.0-36.0) g/dL Sodium 133 L (136-145) mmol/L BUN 43 H (6-23) mg/dl Creatinine 6.30 H* D (0.6-1.4) mg/dl BUN/Creatinine Ratio 6.8 L (10-20) Glucose 158 H (70-99(Fasting)) mg/dl POC Glucose 292 H (70-99) mg/dl Calcium 7.8 L (8.5-10.1) mg/dl 01/07/22 01/07/22 Range/Units 07:00 11:14 RBC (4.63-6.08) M/uL Hgb (14.0-18.0) g/dl Hct (40.1-51.0) % MCHC (32.0-36.0) g/dL Sodium (136-145) mmol/L BUN (6-23) mg/dl Creatinine (0.6-1.4) mg/dl BUN/Creatinine Ratio (10-20) Glucose (70-99(Fasting)) mg/dl POC Glucose 174 H 154 H (70-99) mg/dl Calcium (8.5-10.1) mg/dl (1) Chest pain Chest pain type: unspecified Qualified Code(s): R07.9 - Chest pain, unspecified
[2022-01-07] MEDS: PROMETHAZINE HCL 12.5 MG in SODIUM CHLORIDE 0.9% 50 ML IV PRN (12:49)
--- NOTE | 2022-01-07 13:00 | CT Scan Report ---
CT chest diagnostic wo con CLINICAL HISTORY: Persistent chest pain/chest wall tenderness TECHNIQUE: Multidetector row helical CT of the chest was performed. Coronal and sagittal reformations were obtained. Automated dose lowering techniques and/or adjustment according to patient size were u tilized for this exam. CT DOSE: 334.69 mGy.cm Comparison: None available at the time of this dictation. FINDINGS: Lungs and pleura: Atelectasis versus scarring is seen in the dependent portions of the lungs. Again n oted is a pleural-based mass in the left upper lobe mediastinal surface measuring 43 x 30 mm. There i s a 5 mm nodule in the left lower lobe (series 4) which is unchanged from prior exam. Right apical no dule measuring 3 mm is unchanged as well (image 38) Heart and pericardium: Heart size is normal. No pericardial effusion. Vessels: The pulmonary trunk measures 32 mm in diameter. Mediastinum and laura: Mediastinal lymphadenopathy is again seen measuring up to 19 mm in the subcarin al station. Allow evaluation is limited by noncontrast technique, this appears similar to prior exam. Chest wall and lower neck: Left axillary lymph node measures 24 mm in short axis, markedly enlarged f rom prior exam. Additional prominent lymph nodes are noted in the left axillary and subclavian statio ns. Small thyroid nodules are noted. Abdomen: Unremarkable. Bones: Interval development of a large T8 lucent lesion. Destructive lesions of the lateral eighth an d ninth ribs are seen, the eighth rib lesion appears new from prior exam. There is also a destructive appearing lesion at T5-T6 crossing the disc space. IMPRESSION: 1. Interval development of new bony lesions at T8 and the left eighth rib as well as at T5-T6. A def inite pathologic fractures are seen. 2. Stable destructive lesion of the left ninth rib with pathologic fracture. 3. Interval enlargement of a left axillary node which now measures 24 mm in short axis, previously m easured 14 mm. Redemonstration of mediastinal nodes, approximately unchanged. 4. Interval stability of left upper pleural-based mass. 5. Pulmonary hypertension. 6. Interval resolution of previously noted infectious/inflammatory pneumonitis. ACT 112: Negative or not required by law. Electronically signed by: Tan Muller M.D. 01/07/2022 12:58 PM
[2022-01-07] MEDS: LORazepam 0.5 MG TAB PO PRN ×2 (20:48→23:46)
[2022-01-07] MEDS: amLODIPine BESYLATE 5 MG TAB PO SCH (20:55)
[2022-01-07] MEDS: OLANZAPINE 2.5 MG TAB PO SCH (20:56)
[2022-01-07] MEDS: LANTUS PER UNIT CHARGE SQ SCH (21:20)
[2022-01-08] MEDS: HYDROmorphone INJ 1 MG/ML SYRINGE IV PRN (03:00)
[2022-01-08] MEDS: ACETAMINOPHEN 325 MG TAB PO SCH ×4 (04:01→21:48)
[2022-01-08] MEDS: HYDROmorphone HCL 2 MG TAB PO PRN ×4 (04:02→20:07)
[2022-01-08] MEDS: LORazepam 0.5 MG TAB PO PRN ×2 (04:03→21:48)
[2022-01-08] MEDS: INSULIN ASPART PER UNIT SC SCH ×5 (04:06→21:45)
[2022-01-08 06:18] LABS: Hematocrit (blood only) 27.1 % (40.1-51.0); Hemoglobin 8.5 g/dl (14.0-18.0); Mean Corpuscular Hemoglobin 28.9 pg (25.0-34.0); Mean Corpuscular Hgb Conc 31.4 g/dL (32.0-36.0); Mean Corpuscular Volume 92.2 fL (80.0-100.0); Mean Platelet Volume 10.9 fL (9.4-12.4); Platelet Count 283 K/uL (130-400); RDW Coefficient of Variation 13.4 % (11.5-14.5); RDW Standard Deviation 44.9 fL (36.4-46.3); Red Blood Count 2.94 M/uL (4.63-6.08); White Blood Count 4.61 K/ul (4.8-10.8)
[2022-01-08 06:54] LABS: BUN Creatinine Ratio 7.3 (10-20); Calcium 7.6 mg/dl (8.5-10.1); Creatinine Clr Calc Pharmacy 10.8 ml/min; Est GFR (African American) 8.6 ml/min; Est GFR (Non-African American) 7.4 ml/min; Potassium 3.9 mmol/L (3.5-5.1)
[2022-01-08] MEDS ORDERED: HYDROmorphone HCL 2 MG TAB PO ONE (08:30)
[2022-01-08] MEDS: DOXYCYCLINE HYCLATE 100 MG CAP PO SCH (08:35)
[2022-01-08] MEDS: ADVANCED PROBIOTIC 1250 MG CAPSULE PO SCH (08:35)
[2022-01-08] MEDS: carvediloL 6.25 MG TAB PO SCH ×2 (08:35→21:50)
[2022-01-08] MEDS: levETIRAcetam 250 MG TAB PO SCH ×2 (08:36→21:48)
[2022-01-08] MEDS: PANTOprazole 40 MG TAB PO SCH (08:36)
[2022-01-08] MEDS: METOCLOPRAMIDE HCL 5 MG TABLET PO SCH (08:36)
[2022-01-08] MEDS: lisinopril 40 MG TAB PO SCH (08:36)
[2022-01-08] MEDS: GABAPENTIN 400 MG CAP PO SCH ×3 (08:36→21:49)
[2022-01-08] MEDS: CHECK fentaNYL PATCH PLACEMENT SCH ×2 (08:39→15:49)
[2022-01-08] MEDS: CHECK CLONIDINE PATCH PLACEMENT SCH ×2 (08:39→15:49)
[2022-01-08] MEDS: FLUTICASONE/VILANTEROL 200/25MCG 14 PUFFS/INHALER INH SCH (08:40)
[2022-01-08] MEDS: NICOTINE 14 MG/24 HR PATCH TD SCH (08:45)
[2022-01-08] MEDS: DOCUSATE SODIUM/SENNA 50/8.6MG TAB PO SCH (08:45)
--- NOTE | 2022-01-08 10:30 | Nephrology Progress Note ---
Date of Service January 08, 2022 Assessment & Plan (1) ESRD (end stage renal disease) on dialysis: Plan: extra tx 01/04 to help improve HTN w/ goal 3 L fluid removal >> however shortened tx to 90 min b/c blood pressure dropped to 80s systolic w/ symptoms; we gave him saline back and ultimately removed only about 400 mL of fluid w/ post tx SBP 117 >tolerated 2L UF on 01/04 >next HD today, UF as BP dictate, >Continue to hold BP before HD on dialysis days. (2) Hypertensive urgency: Plan: labile blood pressures but overall better controlled today >continue lisinopril 40 mg,amlodipine -continue clonidine patch -trial of coreg watching HR carefully >>no clear cause at this time; ? relation to CA dx or to his severe autonomic dysfunction w/ DM Admission and Anticipated Discharge Date Admission Date: January 04, 2022 Subjective Patient seen and examined. Continues to report intermittent left-sided chest pain No shortness of breath. Review of Systems Review of Systems: All systems reviewed & are unremarkable except as noted in HPI & below Physical Exam Physical Exam: Eyes- anicteric Neck- no JVD Lungs- clear breath sounds bilaterally, no rales/wheezes Heart- normal rate, regular rhythm; no murmurs Abdomen- normal bowel sounds, nondistended, soft, nontender No CVA tenderness Extremities- 3+pretibial edema, no calf tenderness Neuro- alert, oriented x 3; no gross focal neurologic deficits Skin- warm & dr Results & Data ([facility]) Vital Signs (Past 12 Hours) Vital Signs Temp Pulse Pulse Pulse Resp BP Pulse Ox 01/08/22 07:48 36.6 C 79 16 145/96 H 97 01/08/22 07:00 70 01/08/22 07:00 01/08/22 03:00 36.6 C 69 17 136/82 96 01/08/22 01:00 01/07/22 23:00 36.6 C 82 17 163/98 H 97 Pulse Ox O2 Del Method O2 Del Method 01/08/22 07:48 Room Air 01/08/22 07:00 01/08/22 07:00 Room Air 01/08/22 03:00 Room Air 01/08/22 01:00 95 Room Air 01/07/22 23:00 Room Air Laboratory Results 01/08/22 05:27 01/08/22 05:27
--- NOTE | 2022-01-08 11:42 | Hospitalist Progress Note ---
Date of Service January 08, 2022 Assessment & Plan (1) Chest pain: Plan: Chest pain is atypical. Trop is normal. No ACS on EKG. Echo noted normal LV size with moderate concentric LVH without segmental wall motion abnormalities, EF of 55 to 60%. History of COPD Metastatic NSCLC status post surgery, radiation/incomplete chemotherapy secondary to intolerance Patient not a candidate for additional treatment as per recent outpatient Oncology note CT chest 01/07/22 showed new bony lesions at T8, left 8th rib as well as T5-6, stable destructive lesion on left 9th rib, interval enlargement of left axillary node and stable Left upper pleural based mass Continue po dilaudid and fentanyl patch Considering bony lesions, will get Rad onc consult to evaluate possibility of palliative radiation for pain control I also called and spoke with patient's Oncologist, Dr Lion Keith who stated no further treatment/chemo is recommended. I had extensive conversation with patient, parents and brother who were at bedside detailing findings, medical issues and plans. We also discussed code status and goals of care. Patient reported he will like to discuss further with Palliative Specialist. During our conversation, Dr Delgado (database management specialist) came in and cont inued Goals of Care discussion. Will follow up patient's decisions afterwards. (2) Hypertensive crisis: Plan: Presenting as headache and chest pain symptoms ?Hypertensive emergency Patient reports chronic intermittent generalized body pains for which he is on opioids (confirmed on PDMP) Concern for possible poor med adherence considering recurrent admissions; likely complicated by nausea/vomiting related to gastroparesis Continue lisinopril, clonidine Continue amlodipine and carvedilol started BP controlled (3) Wound of left foot: Plan: CT foot does not show any osteomyelitis Related to dropfoot brace which was quite tight Ortho eval appreciated Wound care while inpatient Will need podiatry follow up (4) Intractable nausea and vomiting: (5) Gastroparesis: Plan: History of IBD, gastroparesis status post gastric pacemaker, symptoms better after recent pacemaker adjustment Continue antiemetics prn (6) ESRD (end stage renal disease) on dialysis: Plan: Nephrology on board Getting HD on schedule (7) DM type 1 (diabetes mellitus, type 1): Plan: Recent hemoglobin A1c of 9.1 last October 2021 Continue insulin scale per protocol Will need good glycemic control Chronic anemia Worsening anemia. No obvious blood loss S/p 1 PRBC with HD on 01/05/22 Hb is 8.5 today Monitor Seizure disorder, stable on regimen Admission and Anticipated Discharge Date Admission Date: January 04, 2022 Subjective Patient seen and examined. Continues to left chest pain and back pain States pain meds gives intermittent relief Denied abd pain, diarrhea, constipation Reported some vomiting yesterday. Denied fevers, chills Reports occasional cough and dyspnea Physical Exam Constitutional: + ill appearing (chronic) and + well hydrated; no acute distress Eyes: PERRL, conjunctivae normal, anicteric sclerae ENMT: external ear and nose normal, oropharynx normal Respiratory: normal respiratory effort, lungs clear to auscultation Cardiovascular: Rate/Rhythm: regular rate and regular rhythm S1 S2 Chest (Breasts): Additional Comments: Chest wall tenderness Gastrointestinal (Abdomen): normal bowel sounds, soft, nontender, no hepatosplenomegaly Musculoskeletal: +pedal edema Neurologic: PERRL, EOMI, accommodation nl, no face palsy, no dysarthria Psychiatric: A+Ox3, euthymic affect Results & Data Results & Data ([facility]) Vital Signs (Past 12 Hours) Vital Signs Temp Pulse Pulse Pulse Resp BP Pulse Ox 01/08/22 11:14 36.6 C 74 18 117/78 96 01/08/22 07:48 36.6 C 79 16 145/96 H 97 01/08/22 07:00 70 01/08/22 07:00 01/08/22 03:00 36.6 C 69 17 136/82 96 01/08/22 01:00 Pulse Ox O2 Del Method O2 Del Method 01/08/22 11:14 Room Air 01/08/22 07:48 Room Air 01/08/22 07:00 01/08/22 07:00 Room Air 01/08/22 03:00 Room Air 01/08/22 01:00 95 Room Air Laboratory Results Abnormal lab results 01/07/22 01/07/22 01/08/22 Range/Units 16:16 20:40 03:58 WBC (4.8-10.8) K/ul RBC (4.63-6.08) M/uL Hgb (14.0-18.0) g/dl Hct (40.1-51.0) % MCHC (32.0-36.0) g/dL Sodium (136-145) mmol/L Anion Gap (3-11) BUN (6-23) mg/dl Creatinine (0.6-1.4) mg/dl BUN/Creatinine Ratio (10-20) Glucose (70-99(Fasting)) mg/dl POC Glucose 128 H 127 H 194 H (70-99) mg/dl Calcium (8.5-10.1) mg/dl 01/08/22 01/08/22 01/08/22 Range/Units 05:27 05:27 07:12 WBC 4.61 L (4.8-10.8) K/ul RBC 2.94 L (4.63-6.08) M/uL Hgb 8.5 L (14.0-18.0) g/dl Hct 27.1 L (40.1-51.0) % MCHC 31.4 L (32.0-36.0) g/dL Sodium 134 L (136-145) mmol/L Anion Gap 14 H (3-11) BUN 54 H (6-23) mg/dl Creatinine 7.40 H* D (0.6-1.4) mg/dl BUN/Creatinine Ratio 7.3 L (10-20) Glucose 223 H (70-99(Fasting)) mg/dl POC Glucose 139 H (70-99) mg/dl Calcium 7.6 L (8.5-10.1) mg/dl 01/08/22 Range/Units 11:04 WBC (4.8-10.8) K/ul RBC (4.63-6.08) M/uL Hgb (14.0-18.0) g/dl Hct (40.1-51.0) % MCHC (32.0-36.0) g/dL Sodium (136-145) mmol/L Anion Gap (3-11) BUN (6-23) mg/dl Creatinine (0.6-1.4) mg/dl BUN/Creatinine Ratio (10-20) Glucose (70-99(Fasting)) mg/dl POC Glucose 200 H (70-99) mg/dl Calcium (8.5-10.1) mg/dl (1) Chest pain Chest pain type: unspecified Qualified Code(s): R07.9 - Chest pain, unspecified
[2022-01-08] MEDS ORDERED: SODIUM CHLORIDE 0.9% 1000ML 1,000 ML IV PRN (12:32)
--- NOTE | 2022-01-08 12:33 | Palliative Care Consultation ---
Date of Consultation January 08, 2022 Assessment & Plan (1) Chest pain: With lung cancer and bony metastases. Would benefit from steroid. His blood sugars are reasonably well controlled. He does have a sliding scale. Discussed with Dr. La. Will start decadron during hospitalization and monitor blood sugars. Chest pain type: unspecified Qualified Code(s): R07.9 - Chest pain, unspecified (2) Diabetic neuropathy: He is on gabapentin. Unfortunately, opioid analgesics are not ideal for relief of neuropathic pain. He has been on methadone in the past but was very sedated and actually had narcan. I'm not sure what the does was at that time. He did not feel that it was particularly effective. He has been on fentanyl patch in the past as high as 225mcg which was weaned and actually stopped for a while. He is asking about increasing fentanyl patch at this time. I told him that I would be cautious with this as increasing dose increases risk for side effects and sedation with limited potential benefit. Would continue prn hydromorphone for now. (3) Palliative care encounter: I talked with Jeff, his parents and brother at bedside. We had an extensive discussion about his thoughts about his illness. He realizes that the cancer is not treatable and that he is likely approaching his dying time. He points out that when he was diagnosed he was told that he had about 18 months and it has only been nine months since then. He feels that he has unfinished business that he needs to take care of. He wants to distribute some of his possessions to family members and have as much time with family as possible. Time with family is the most important thing to him. He lives alone currently and has been independent with ADLs, driving himself to dialysis. We discussed concern that he would need additional support at home and should look at transportation to dialysis. He mentioned that he could live with his daughter and grandchildren for additional support which would also allow him to spend more time with them. We talked about hospice support at home. However, his desire is continue dialysis which would make him ineligible for hospice care. He understands that if he stopped dialysis, he would likely only have days to live and is not ready for that. He would benefit from palliative care followup as an outpatient but has limited mobility and lives in [place]. Will reach out to [facility] to see if they would be able to follow him at home. We talked about code status which is currently full code. He has discussed this with Dr. La and understand that with his rib mets, there is a high risk of fracture and increased pain with CPR. He tells me that he would want to be kept alive until his family came to say goodbye. I explained that if he is intubated he would likely not be able to say goodbye to them and that family would then have to make decision to withdraw care. He understands this and has discussed this with his family. His father notes that they support this decision. He has designated his sister, Tahira Nguyen, as his surrogate decision maker and POA and has talked with her about this and that she is comfortable with that. (4) ESRD (end stage renal disease) on dialysis: (5) Primary cancer of left lung metastatic to other site: (6) DM type 1 (diabetes mellitus, type 1): (7) COPD (chronic obstructive pulmonary disease): History of Present Illness Reason for Consultation: symptom management Requesting Physician: Dr. La Attending Physician: Julia La MD History of Present Illness 56 yo gentleman with complicated medical history including COPD, pulmonary hypertension, ESRD on hemodialysis, diabetes with neuropathy, chronic pain syndrome and gastroparesis with gastric pacemaker. He also has NSCLC with lymphadenopathy and bony mets to ribs, T5-T6, T8. He was admitted with hypertensive crisis and chest pain. BP is controlled, troponin, EKG and echo are essentially normal. He was found to have a necrotic left foot wound which was negative for osteomyelitis. He is followed by Dr. Keith at [facility] for his cancer and is unfortunately not a candidate for further treatment. He complains of a stabbing pain in his chest that radiates to his back. He does not identify any particular triggers. He rates the pain as 10+/10 at worst and 5/10 at best. He also has chronic neuropathic pain. He has been on multiple medications including, MS contin, Yovana, methadone, morphine and oxycodone. He did have an intrathecal pump at one point which was removed due to infection. He is currently on fentanyl patch 75mc for the last six months and prn hydromorphone. In the last 24 hours he has had 86 OME in prn dosing. He rates pain as a 7 at this time. He reports that he does get brief relief with hydromorphone tabs but that it only lasts for about an hour and a half. Allergies Allergy/AdvReac Type Severity Reaction Status Date / Time bee venom protein (honey bee) Allergy Severe Swelling Verified 12/28/21 15:03 at site, SOB cat dander Allergy Unknown Unknown Verified 12/28/21 15:03 Penicillins Allergy Unknown Amoxicillin- Verified 12/28/21 15:03 "since " Home Medications Medication Instructions Recorded Confirmed Type blood sugar diagnostic 04/26/21 01/03/22 History flash glucose sensor (FreeStyle 04/26/21 01/03/22 History Amparo 14 Day Sensor kit) gabapentin 400 mg capsule 400 mg PO TID 04/26/21 01/03/22 History insulin glargine 100 unit/mL (3 7 unit subcut QPM 04/26/21 01/03/22 History mL) subcutaneous pen (Lantus Solostar U-100 Insulin) clonidine 0.2 mg/24 hr weekly 0.2 mg transdermal FR 06/30/21 01/03/22 History transdermal patch albuterol sulfate 90 mcg/actuation 2 puff inhalation Q4H PRN 07/22/21 01/03/22 Rx aerosol inhaler (Ventolin HFA) Shortness Of Breath #1 inhaler glucagon 1 mg solution for 1 mg IM ONCE PRN Hypoglycemia #1 ea 07/22/21 01/03/22 Rx injection levetiracetam 750 mg tablet 750 mg PO BID #30 tabs 07/22/21 01/03/22 Rx (Keppra) lisinopril 40 mg tablet 40 mg PO QAM 09/29/21 01/03/22 History omeprazole 40 mg capsule,delayed 40 mg PO QAM 09/29/21 01/03/22 History release Probiotic 1 tab PO DAILY 10/20/21 01/03/22 History fluticasone 250 mcg-salmeterol 50 1 inh inhalation QAM 10/20/21 01/03/22 History mcg/dose blistr powdr for inhalation metoclopramide HCl 10 mg tablet 10 mg PO TID PRN Nausea 10/20/21 01/03/22 History fentanyl 75 mcg/hr transdermal 75 mcg transdermal Q72H #3 ea 10/24/21 01/03/22 Rx patch hydromorphone 2 mg tablet 2 mg PO Q4H PRN Pain 12/18/21 01/03/22 History insulin aspart U-100 100 unit/mL 1 sliding scale dose subcut ACHS 12/18/21 01/03/22 History (3 mL) subcutaneous pen (Novolog Flexpen U-100 Insulin aspart) meclizine 12.5 mg tablet 12.5 mg PO TID PRN Dizziness 12/18/21 01/03/22 History olanzapine 2.5 mg tablet 2.5 mg PO HS 12/18/21 01/03/22 History ondansetron 4 mg disintegrating 4 mg PO Q8H PRN Nausea 12/18/21 01/03/22 History tablet metoclopramide HCl 5 mg tablet 5 mg PO DAILY #14 tabs 12/25/21 01/03/22 Rx (Reglan) Patient History Medical History Anemia Cancer lymph nodes - recent dx- 10/2021 follows w/ dr jane [facility] Chronic pain COPD (chronic obstructive pulmonary disease) Diabetic gastroparesis DM type 1 (diabetes mellitus, type 1) Enlarged prostate ESRD (end stage renal disease) on dialysis Gastroparesis s/p gastric stimulator History of Crohn's disease HTN (hypertension) Lung cancer Dx 2015 [facility]; + hilar nodes; s/p left upper lobectomy + chemo Neurogenic bladder On home oxygen therapy 2L/min NC PRN has used "in a while" Orthostatic hypotension Port-A-Cath in place 10/2021 [facility] Presence of gastric pacemaker [facility] recently for adjustments Primary cancer of left lung metastatic to other site Seizure disorder Hx grand mal seizures, no recent seizures has been many years Surgical History H/O colonoscopy H/O esophagogastroduodenoscopy History of cholecystectomy History of knee surgery LEFT X 17/RIGHT X 2 History of tonsillectomy and adenoidectomy Hx of total knee arthroplasty S/P lobectomy of lung [place] Status post insertion of intrathecal pump explanted Family History Mother Diabetes Dementia Father Hypertension Diabetes Sister Crohn's disease Social History Smoking Status: Former smoker Tobacco Type: Cigarettes Second Hand Exposure: No; Do You Dip or Chew Tobacco: Yes; Tobacco Cessation Education Requested by Patient: No Hx Alcohol Use: No Hx Substance Use: No Preferred Language: Moroccan Communication Ability: Effective Visual Impairment: No Limitations Dairy Specialist Required: No Beliefs That Will Affect Care: None marital status: Single Current Living Situation: Alone Current Living Situation Comment: has family close by and available to assist current occupational status: disabled How many Children do You have: 5 Other Information That Helps Us Care for You: No Feels Safe at Home: Yes Safety Concerns: Feels Safe At This Time Diet Comment: Carb counting caffeine: No Physical Activity Frequency: Does not Exercise Physical Activity Frequency Comment: walks when able Assistive Devices: Cane and Walker Review of Systems Review of Systems: ESAS Pain 3/3 Dyspnea 0/3 Nausea 0/3 Anxiety 1/3 Fatigue 1/3 Drowsiness 0/3 PPS 50% Physical Exam Constitutional: ill appearing, no acute distress ENMT: temporal wasting Respiratory: normal respiratory effort; no labored breathing Cardiovascular: Extremities: + edema Gastrointestinal (Abdomen): nondistended Musculoskeletal: muscle atrophy Skin: vascular skin changes Neurologic: Speech / Cognition: normal cognition Results & Data ([facility]) Vital Signs (Past 12 Hours) Vital Signs Temp Pulse Pulse Pulse Resp BP Pulse Ox 01/08/22 11:14 97.9 F 74 18 117/78 96 01/08/22 07:48 97.9 F 79 16 145/96 H 97 01/08/22 07:00 70 01/08/22 07:00 01/08/22 03:00 97.9 F 69 17 136/82 96 01/08/22 01:00 Pulse Ox O2 Del Method O2 Del Method 01/08/22 11:14 Room Air 01/08/22 07:48 Room Air 01/08/22 07:00 01/08/22 07:00 Room Air 01/08/22 03:00 Room Air 01/08/22 01:00 95 Room Air PG Care Time/CCT Total # of Minutes Spent Total Time Spent: 108 Total Time Spent with Patient: Total time spent is greater than 50% in coordination of care (as documented) at patient's floor/unit and/or counseling patient: symptom management, goals of care, hospice, code status, patient and family education and support, coordination of care Coding Level of Care Code 10005 Initial Inpt Care Lvl 3 Diagnoses Chest pain R07.9 Chest pain type: unspecified Diabetic neuropathy E11.40 Palliative care encounter Z51.5 ESRD (end stage renal disease) on dialysis N18.6; Z99.2 Primary cancer of left lung metastatic to other site C34.92 DM type 1 (diabetes mellitus, type 1) E10.9 COPD (chronic obstructive pulmonary disease) J44.9
[2022-01-08] MEDS ORDERED: HEPARIN SOD (PORCINE) 1000 UNIT/ML IV SCH (13:00)
[2022-01-08] MEDS: HEPARIN SOD (PORCINE) 1000 UNIT/ML IV SCH ×2 (15:43→17:04)
[2022-01-08] MEDS ORDERED: HYDROmorphone INJ 1 MG/ML SYRINGE IV ONE (21:27)
[2022-01-08] MEDS ORDERED: HYDROmorphone INJ 1 MG/ML SYRINGE ONE (21:42)
[2022-01-08] MEDS: LANTUS PER UNIT CHARGE SQ SCH (21:45)
[2022-01-08] MEDS: OLANZAPINE 2.5 MG TAB PO SCH (21:48)
[2022-01-08] MEDS: amLODIPine BESYLATE 5 MG TAB PO SCH (21:50)
[2022-01-08] MEDS ORDERED: HYDROmorphone INJ 1 MG/ML SYRINGE IV PRN (21:52)
[2022-01-09] MEDS: CHECK fentaNYL PATCH PLACEMENT SCH ×3 (00:30→15:26)
[2022-01-09] MEDS: CHECK CLONIDINE PATCH PLACEMENT SCH ×3 (00:30→15:26)
[2022-01-09] MEDS: HYDROmorphone HCL 2 MG TAB PO PRN ×4 (03:51→22:21)
[2022-01-09] MEDS: ACETAMINOPHEN 325 MG TAB PO SCH ×4 (03:51→21:09)
--- NOTE | 2022-01-09 07:34 | History & Physical Bridge Note ---
Date of Service January 09, 2022 History & Physical Bridge Note I have examined the patient, reviewed the History & Physical and in the interval since the performance of the History & Physical I have noted the following changes of clinical significance: no changes noted
--- NOTE | 2022-01-09 07:46 | Anesthesiology Consultation ---
Date of Service January 09, 2022 Assessment & Plan Chart Review Chart Review: Acceptable Risk for Surgery and Patient NOT seen in Pre Admission Testing Consults Requested none ASA ASA4 Proposed Anesthesia Anesthesia Type: MAC Risk / Benefits Reviewed With: PT / POA / Parent / Guardian, Accepts Plan and Informed Consent Obtained History Surgery Operation Date: 01/09/22 08:00 Proposed Procedures p Left Antecubital Basilic Vein Arteriovenous Fistula Creation, Repair Central Venous Device - Joon Mattson MD Height/Weight Height: 5 ft 8 in Weight: 79.3 kg Allergies Allergy/AdvReac Type Severity Reaction Status Date / Time bee venom protein (honey bee) Allergy Severe Swelling Verified 12/28/21 15:03 at site, SOB cat dander Allergy Unknown Unknown Verified 12/28/21 15:03 Penicillins Allergy Unknown Amoxicillin- Verified 12/28/21 15:03 "since " Medications Home Medications Medication Instructions Recorded Confirmed Last Taken blood sugar diagnostic 04/26/21 01/03/22 Unknown flash glucose sensor (FreeStyle 04/26/21 01/03/22 Unknown Amparo 14 Day Sensor kit) gabapentin 400 mg capsule 400 mg PO TID 04/26/21 01/03/22 01/03/22 2 insulin glargine 100 unit/mL (3 7 unit subcut QPM 04/26/21 01/03/22 01/02/22 mL) subcutaneous pen (Lantus Solostar U-100 Insulin) clonidine 0.2 mg/24 hr weekly 0.2 mg transdermal FR 06/30/21 01/03/22 01/01/22 transdermal patch albuterol sulfate 90 mcg/actuation 2 puff inhalation Q4H PRN 07/22/21 01/03/22 10/03/21 08:00 aerosol inhaler (Ventolin HFA) Shortness Of Breath #1 inhaler glucagon 1 mg solution for 1 mg IM ONCE PRN Hypoglycemia #1 ea 07/22/21 01/03/22 Unknown injection levetiracetam 750 mg tablet 750 mg PO BID #30 tabs 07/22/21 01/03/22 01/03/22 (Keppra) lisinopril 40 mg tablet 40 mg PO QAM 09/29/21 01/03/22 01/03/22 omeprazole 40 mg capsule,delayed 40 mg PO QAM 09/29/21 01/03/2222 release Probiotic 1 tab PO DAILY 10/20/21 01/03/22 01/03/22 fluticasone 250 mcg-salmeterol 50 1 inh inhalation QAM 10/20/21 01/03/22 01/03/22 mcg/dose blistr powdr for inhalation metoclopramide HCl 10 mg tablet 10 mg PO TID PRN Nausea 10/20/21 01/03/22 01/03/22 fentanyl 75 mcg/hr transdermal 75 mcg transdermal Q72H #3 ea 10/24/21 01/03/22 01/01/22 patch hydromorphone 2 mg tablet 2 mg PO Q4H PRN Pain 12/18/21 01/03/22 01/03/22 insulin aspart U-100 100 unit/mL 1 sliding scale dose subcut ACHS 12/18/21 01/03/22 01/03/22 (3 mL) subcutaneous pen (Novolog Flexpen U-100 Insulin aspart) meclizine 12.5 mg tablet 12.5 mg PO TID PRN Dizziness 12/18/21 01/03/22 01/01/22 olanzapine 2.5 mg tablet 2.5 mg PO HS 12/18/21 01/03/22 01/02/22 ondansetron 4 mg disintegrating 4 mg PO Q8H PRN Nausea 12/18/21 01/03/22 01/02/22 tablet metoclopramide HCl 5 mg tablet 5 mg PO DAILY #14 tabs 12/25/21 01/03/22 01/03/22 (Reglan) Active Medications Generic Name Dose Route Start Last Admin Trade Name Kunal PRN Reason Stop Dose Admin Acetaminophen 650 mg 01/04/22 15:30 01/09/22 03:51 Acetaminophen 325 Mg Tab PO 02/03/22 15:29 650 mg Q6H DAMIR Administration Amlodipine Besylate 10 mg 01/04/22 21:00 01/08/22 21:50 Amlodipine Besylate 5 Mg Tab PO 02/03/22 20:59 10 mg HS DAMIR Administration Carvedilol 6.25 mg 01/04/22 21:00 01/08/22 21:50 Carvedilol 6.25 Mg Tab PO 02/03/22 20:59 6.25 mg BID DAMIR Administration Clonidine HCl 1 patch 01/05/22 09:00 01/05/22 08:14 Clonidine Hcl 0.2 Mg/24 Hr Transderm Sys TD 02/04/22 08:59 1 patch Fr@0900 DAMIR Administration Fentanyl 75 mcg 01/04/22 14:00 01/07/22 08:32 Fentanyl 75 Mcg/Hr Tdsy TD 01/18/22 13:59 75 mcg Q3D@0900 DAMIR Administration Fluticasone/Vilanterol 1 puffs 01/04/22 09:00 01/08/22 08:40 Fluticasone/Vilanterol 200/25mcg 14 Puffs/Inhaler INH 02/03/22 08:59 1 puffs DAILY DAMIR Administration Gabapentin 400 mg 01/04/22 01:24 01/08/22 21:49 Gabapentin 400 Mg Cap PO 02/03/22 01:23 400 mg TID DAMIR Administration Heparin Sodium (Porcine) 5,000 units 01/04/22 21:00 01/04/22 21:05 Heparin Sod 5,000 Unit/0.5 Ml Vial SQ 02/03/22 20:59 5,000 units Q12 DAMIR Administration Heparin Sodium (Porcine) 5 ml 01/06/22 10:10 01/07/22 08:52 Heparin 100 Unit/Ml 5ml Flush FLUSH 02/05/22 10:09 5 ml PRN PRN Administration Flush Hydromorphone HCl 2 mg 01/06/22 03:14 01/09/22 03:51 Hydromorphone Hcl 2 Mg Tab PO 01/18/22 01:23 2 mg Q3HWA PRN Administration Pain Hydromorphone HCl 1 mg 01/08/22 21:52 01/09/22 05:54 Hydromorphone Inj 1 Mg/Ml Syringe IV 01/09/22 07:51 1 mg Q6H PRN Administration Pain Promethazine HCl 12.5 mg/ 50.5 mls @ 202 mls/hr 01/03/22 23:14 01/07/22 13:45 Sodium Chloride IV 02/02/22 23:13 Infused Q6H PRN Infusion Nausea And Vomiting Insulin Aspart 0 units 01/04/22 01:24 01/08/22 21:45 Insulin Aspart Per Unit SC 02/03/22 01:23 8 units ACHS DAMIR Administration Insulin Glargine 7 units 01/04/22 21:00 01/08/22 21:45 Lantus Per Unit Charge SQ 02/03/22 20:59 7 units QPM DAMRI Administration Lactobacillus Acidophilus 2 cap 01/04/22 09:00 01/08/22 08:35 Advanced Probiotic 1250 Mg Capsule PO 02/03/22 08:59 2 cap DAILY DAMIR Administration Levetiracetam 750 mg 01/04/22 09:00 01/08/22 21:48 Levetiracetam 250 Mg Tab PO 02/03/22 08:59 750 mg BID DAMIR Administration Lisinopril 40 mg 01/04/22 01:30 01/08/22 08:36 Lisinopril 40 Mg Tab PO 02/03/22 01:29 40 mg QAM DAMIR Administration Lorazepam 0.5 mg 01/07/22 20:27 01/08/22 21:48 Lorazepam 0.5 Mg Tab PO 02/06/22 20:26 0.5 mg HS PRN Administration Anxiety, sleep Metoclopramide HCl 5 mg 01/04/22 09:00 01/08/22 08:36 Metoclopramide Hcl 5 Mg Tablet PO 02/03/22 08:59 5 mg DAILY DAMIR Administration Miscellaneous 1 each 01/05/22 08:59 01/05/22 08:13 Remove Clonidine Patch N/A 02/04/22 08:58 1 each Fr@0859 DAMIR Administration Miscellaneous 1 each 01/04/22 08:00 01/09/22 00:30 Check Clonidine Patch Placement N/A 02/03/22 07:59 1 each QS DAMIR Administration Miscellaneous 1 each 01/04/22 08:00 01/09/22 00:30 Check Fentanyl Patch Placement N/A 02/03/22 07:59 1 each QS DAMIR Administration Miscellaneous 1 each 01/04/22 13:59 01/07/22 08:33 Fentanyl Patch Remove & Waste N/A 02/03/22 13:58 1 each Q3D@0859 DAMIR Administration Miscellaneous 1 each 01/06/22 08:59 01/08/22 08:39 Remove Nicoderm Patch N/A 02/05/22 08:58 1 each DAILY@0859 DAMIR Administration Nicotine 14 mg 01/05/22 16:00 01/08/22 08:45 Nicotine 14 Mg/24 Hr Patch TD 02/04/22 15:59 14 mg QAM DAMIR Administration Olanzapine 2.5 mg 01/04/22 01:24 01/08/22 21:48 Olanzapine 2.5 Mg Tab PO 02/03/22 01:23 2.5 mg HS DAMIR Administration Pantoprazole Sodium 40 mg 01/04/22 09:00 01/08/22 08:36 Pantoprazole 40 Mg Tab PO 02/03/22 08:59 40 mg QAM DAMIR Administration Senna/Docusate Sodium 1 tab 01/04/22 09:00 01/08/22 08:45 Docusate Sodium/Senna 50/8.6mg Tab PO 02/03/22 08:59 1 tab DAILY DAMIR Administration NPO Date Last Intake of Fluids: 01/08/22 Time Last Intake of Fluids: 23:00 Date Last Intake of Solids: 01/08/22 Time Last Intake of Solids: 23:00 Past Medical History Medical History Anemia Cancer lymph nodes - recent dx- 10/2021 follows w/ dr jane [facility] Chronic pain COPD (chronic obstructive pulmonary disease) Diabetic gastroparesis DM type 1 (diabetes mellitus, type 1) Enlarged prostate ESRD (end stage renal disease) on dialysis Gastroparesis s/p gastric stimulator History of Crohn's disease HTN (hypertension) Lung cancer Dx 2015 [facility]; + hilar nodes; s/p left upper lobectomy + chemo Neurogenic bladder On home oxygen therapy 2L/min NC PRN has used "in a while" Orthostatic hypotension Port-A-Cath in place 10/2021 [facility] Presence of gastric pacemaker 12/2021 at [facility] recently for adjustments Primary cancer of left lung metastatic to other site Seizure disorder Hx grand mal seizures, no recent seizures has been many years Exercise / Class Metabolic Activity III < 4 Walking/Shop/Light housework Past Family History Family History Mother Diabetes Dementia Father Hypertension Diabetes Sister Crohn's disease Past Surgical History Surgical History H/O colonoscopy H/O esophagogastroduodenoscopy History of cholecystectomy History of knee surgery LEFT X 17/RIGHT X 2 History of tonsillectomy and adenoidectomy Hx of total knee arthroplasty S/P lobectomy of lung [place] Status post insertion of intrathecal pump explanted Past Anesthesia History No Hx of Anesthesia Complications and No Family Hx of Anesthesia Complications History of PONV No Hx of PONV and No Hx of Motion Sickness Social History Smoking Status: Former smoker tobacco type: smokeless tobacco Do You Dip or Chew Tobacco: Yes Hx Alcohol Use: No Alcohol type: beer alcohol intake frequency: holidays/special occasions only Hx Substance Use: No substance use type: does not use Substance Use Type Other:: Currenlty denies Physical Exam Vital Signs Last Vital Signs Temp 36.7 C 01/09/22 07:17 Pulse 77 01/09/22 07:17 Resp 20 01/09/22 07:17 BP 177/94 H 01/09/22 07:17 Pulse Ox 99 01/09/22 07:17 O2 Del Method 01/09/22 07:17 O2 Flow Rate 2 01/05/22 08:00 Constitutional not cachectic ENMT Mouth: + dentition abnormality and + poor dentition Thyromental Distance: > or= 3.5 Finger Breadths Mallampati Class: II Neck normal visual inspection, trachea midline and + facial hair; neck extension not limited Respiratory normal respiratory effort Auscultation: + diminished lung sounds Cardiovascular Rate/Rhythm: regular rate and regular rhythm Heart Sounds: no murmur Vessels: no carotid bruit Chest (Breasts) Chest: + vascular access device or port Musculoskeletal Spine: normal cervical ROM Extremities: extremities normal to inspection Neurologic moves all extremities Motor/Sensory: + sensory deficit (feet) Psychiatric Orientation: alert and oriented x 3 Testing Laboratory Results 01/08/22 05:27 PT 11.4 Seconds (9.0-12.0) 01/03/22 16:47 INR 1.1 (0.9-1.1) 01/03/22 16:47 APTT 34.2 Seconds (21.0-31.0) H 01/04/22 05:32 Blood Type O Positive 01/05/22 08:03 Antibody Screen NEGATIVE 01/05/22 08:03 01/09/22 01/08/22 06:58 20:12 POC Glucose 153 H 137 H
[2022-01-09] MEDS: SODIUM CHLORIDE 0.9% 1000ML 1,000 ML IV SCH (07:50)
[2022-01-09] MEDS ORDERED: CLINDAMYCIN/D5W 600 MG/50 ML BAG **Premixed Bag IV SCH (08:00)
[2022-01-09] MEDS ORDERED: FLUMAZENIL 0.1 MG/1 ML 10 ML VIAL IV PRN (08:01)
[2022-01-09] MEDS ORDERED: ONDANSETRON INJ 2 MG/ML 2 ML VIAL IV PRN (08:01)
[2022-01-09] MEDS ORDERED: PROMETHAZINE HCL 12.5 MG in SODIUM CHLORIDE 0.9% 50 ML IV PRN (08:01)
[2022-01-09] MEDS ORDERED: NALOXONE HCL 0.4 MG/1 ML VIAL/CARP IV PRN (08:01)
[2022-01-09] MEDS ORDERED: ePHEDrine sulfate 50 MG/ML AMP IV PRN (08:01)
[2022-01-09] MEDS ORDERED: ATROPINE SULFATE 0.1 MG/ML 10ML SYR IV PRN (08:01)
[2022-01-09 08:03] LABS: BUN Creatinine Ratio 6.3 (10-20); Calcium 8.1 mg/dl (8.5-10.1); Creatinine Clr Calc Pharmacy 13.7 ml/min; Est GFR (African American) 11.5 ml/min; Est GFR (Non-African American) 9.9 ml/min; Potassium 4.3 mmol/L (3.5-5.1)
[2022-01-09] MEDS ORDERED: HEPARIN (PORCINE) 1000 UNIT/ML 10 ML (CATH LAB USE ONLY) ONE (08:45)
[2022-01-09] MEDS ORDERED: EPINEPHrine INJ 1 MG/ML AMP ONE (08:45)
[2022-01-09] MEDS ORDERED: THROMBIN FOR SOLN 20000 UNIT KIT ONE (08:45)
[2022-01-09] MEDS ORDERED: BUPIVACAINE 0.5 % 5 MG/1 ML MPF 30ML VIAL ONE (08:45)
[2022-01-09] MEDS ORDERED: LIDOCAINE 1% LOCAL 20 ML VIAL ONE (08:45)
[2022-01-09] MEDS ORDERED: GELATIN SPONGE 12-7MM ONE (08:45)
[2022-01-09] MEDS: fentaNYL citrate 100 MCG/2 ML VIAL IV PRN ×3 (09:40→09:50)
--- NOTE | 2022-01-09 09:50 | Anesthesiology Progress Note ---
Date of Service January 09, 2022 Anesthesia Post Procedure Vital Signs Vital Signs: Temp Pulse Pulse Pulse Pulse Resp BP 01/09/22 09:45 72 17 01/09/22 09:35 70 17 01/09/22 09:25 36.0 C L 71 16 01/09/22 07:17 36.7 C 77 78 20 01/09/22 03:50 36.7 C 78 20 01/08/22 22:00 36.6 C 82 18 01/08/22 18:55 36.5 C 75 20 01/08/22 17:48 36.7 C 67 01/08/22 17:30 65 114/76 01/08/22 17:00 65 110/73 01/08/22 16:30 65 115/72 01/08/22 16:00 66 117/71 01/08/22 15:30 68 118/74 01/08/22 15:00 68 109/83 01/08/22 14:33 68 115/68 01/08/22 14:28 36.4 C L 68 01/08/22 11:14 36.6 C 74 18 BP Pulse Ox O2 Del Method 01/09/22 09:45 156/88 H 97 Room Air 01/09/22 09:35 153/77 H 99 Room Air 01/09/22 09:25 135/74 95 Room Air 01/09/22 07:17 177/94 H 99 Room Air 01/09/22 03:50 133/80 96 Room Air 01/08/22 22:00 147/85 H 94 Room Air 01/08/22 18:55 117/78 97 Room Air 01/08/22 17:48 129/83 01/08/22 17:30 01/08/22 17:00 01/08/22 16:30 01/08/22 16:00 01/08/22 15:30 01/08/22 15:00 01/08/22 14:33 01/08/22 14:28 01/08/22 11:14 117/78 96 Room Air Pain Intensity Chest: Pain Intensity: 8 Other: Pain Intensity: 6 Transfer of Care Handoff Completed per policy Notes Mental Status: alert / awake / arousable Patient Amnestic to Procedure: Yes Nausea / Vomiting: adequately controlled Pain: adequately controlled Airway Patency, RR, SpO2: stable & adequate BP & HR: stable & adequate Hydration State: stable & adequate Anesthetic Complications: no major complications apparent
[2022-01-09] MEDS: ADVANCED PROBIOTIC 1250 MG CAPSULE PO SCH (10:30)
[2022-01-09] MEDS: levETIRAcetam 250 MG TAB PO SCH ×2 (10:30→21:10)
[2022-01-09] MEDS: carvediloL 6.25 MG TAB PO SCH ×2 (10:30→21:11)
[2022-01-09] MEDS: METOCLOPRAMIDE HCL 5 MG TABLET PO SCH (10:30)
[2022-01-09] MEDS: lisinopril 40 MG TAB PO SCH (10:30)
[2022-01-09] MEDS: NICOTINE 14 MG/24 HR PATCH TD SCH (10:31)
[2022-01-09] MEDS: FLUTICASONE/VILANTEROL 200/25MCG 14 PUFFS/INHALER INH SCH (10:31)
[2022-01-09] MEDS: DOCUSATE SODIUM/SENNA 50/8.6MG TAB PO SCH (10:31)
[2022-01-09] MEDS: GABAPENTIN 400 MG CAP PO SCH ×3 (10:31→21:08)
[2022-01-09] MEDS: dexAMETHasone 4 MG TAB PO SCH (10:57)
[2022-01-09] MEDS: INSULIN ASPART PER UNIT SC SCH ×4 (10:59→21:23)
--- NOTE | 2022-01-09 11:10 | Hospitalist Progress Note ---
Date of Service January 09, 2022 Assessment & Plan (1) Chest pain: Plan: Chest pain is atypical. Trop is normal. No ACS on EKG. Echo noted normal LV size with moderate concentric LVH without segmental wall motion abnormalities, EF of 55 to 60%. History of COPD Metastatic NSCLC status post surgery, radiation/incomplete chemotherapy secondary to intolerance Patient not a candidate for additional treatment as per recent outpatient Oncology note CT chest 01/07/22 showed new bony lesions at T8, left 8th rib as well as T5-6, stable destructive lesion on left 9th rib, interval enlargement of left axillary node and stable Left upper pleural based mass Continue po dilaudid and fentanyl patch On 01/08/22, I also called and spoke with patient's Oncologist, Dr Lion Keith who stated no further treatment/chemo is recommended. Had GOC meeting with patient and family on 01/08/22 Palliative specialist also did the same. Patient is not ready to transition to hospice, stated he has somethings to take care of before that. He understands prognosis is poor. Wants to continue full code for now until he is ready On dexamethasone per palliative Palliative made referral to [facility] who will follow up with patient. Awaiting rad onc evaluation for palliative radiation to bone lesions (2) Hypertensive crisis: Plan: Presenting as headache and chest pain symptoms ?Hypertensive emergency Patient reports chronic intermittent generalized body pains for which he is on opioids (confirmed on PDMP) Concern for possible poor med adherence considering recurrent admissions; likely complicated by nausea/vomiting related to gastroparesis Continue lisinopril, clonidine Continue amlodipine and carvedilol started during this visit BP controlled (3) Wound of left foot: Plan: CT foot does not show any osteomyelitis Related to dropfoot brace which was quite tight Ortho eval appreciated Wound care while inpatient Reports he already made appt with a plow mechanic (4) Intractable nausea and vomiting: (5) Gastroparesis: Plan: History of IBD, gastroparesis status post gastric pacemaker, symptoms better after recent pacemaker adjustment Continue antiemetics prn (6) ESRD (end stage renal disease) on dialysis: Plan: Nephrology on board Getting HD on schedule (7) DM type 1 (diabetes mellitus, type 1): Plan: Recent hemoglobin A1c of 9.1 last October 2021 Continue insulin scale per protocol Monitor BG with dexamethasone Chronic anemia Worsening anemia. No obvious blood loss S/p 1 PRBC with HD on 01/05/22 Last Hb is 8.5 Monitor Seizure disorder, stable on regimen DVT ppx- Plan to resume hep sq tomorrow since hb has been stable/pt has procedure today Admission and Anticipated Discharge Date Admission Date: January 04, 2022 Subjective Patient seen and examined. Continues to left chest pain and back pain States pain meds gives intermittent relief Deniednausea today Denied abd pain,vomiting Denied fevers, chills Reports occasional cough and dyspnea Physical Exam Constitutional: + ill appearing (chronic) and + well hydrated; no acute distress Eyes: PERRL, conjunctivae normal, anicteric sclerae ENMT: external ear and nose normal, oropharynx normal Respiratory: normal respiratory effort, lungs clear to auscultation Cardiovascular: Rate/Rhythm: regular rate and regular rhythm S1 S2 Chest (Breasts): Additional Comments: + chest wall tenderness Gastrointestinal (Abdomen): normal bowel sounds, soft, nontender, no hepatosplenomegaly Musculoskeletal: Dark eschar on lateral left foot.+blister Neurologic: PERRL, EOMI, accommodation nl, no face palsy, no dysarthria Psychiatric: A+Ox3, euthymic affect Results & Data Results & Data ([facility]) Vital Signs (Past 12 Hours) Vital Signs Temp Pulse Pulse Pulse Resp BP Pulse Ox 01/09/22 10:22 36.4 C L 73 18 140/75 96 01/09/22 09:45 72 17 156/88 H 97 01/09/22 09:35 70 17 153/77 H 99 01/09/22 09:25 36.0 C L 71 16 135/74 95 01/09/22 07:17 36.7 C 77 78 20 177/94 H 99 01/09/22 03:50 36.7 C 78 20 133/80 96 O2 Del Method 01/09/22 10:22 Room Air 01/09/22 09:45 Room Air 01/09/22 09:35 Room Air 01/09/22 09:25 Room Air 01/09/22 07:17 Room Air 01/09/22 03:50 Room Air Laboratory Results Abnormal lab results 01/08/22 01/08/22 01/09/22 Range/Units 18:03 20:12 06:58 Sodium (136-145) mmol/L BUN (6-23) mg/dl Creatinine (0.6-1.4) mg/dl BUN/Creatinine Ratio (10-20) Glucose (70-99(Fasting)) mg/dl POC Glucose 130 H 137 H 153 H (70-99) mg/dl Calcium (8.5-10.1) mg/dl 01/09/22 01/09/22 01/09/22 Range/Units 07:35 09:26 11:31 Sodium 133 L (136-145) mmol/L BUN 37 H (6-23) mg/dl Creatinine 5.84 H* D (0.6-1.4) mg/dl BUN/Creatinine Ratio 6.3 L (10-20) Glucose 167 H (70-99(Fasting)) mg/dl POC Glucose 171 H 163 H (70-99) mg/dl Calcium 8.1 L (8.5-10.1) mg/dl (1) Chest pain Chest pain type: unspecified Qualified Code(s): R07.9 - Chest pain, unspecified
--- NOTE | 2022-01-09 11:25 | Electrocardiogram Report ---
Test Reason : Blood Pressure : / mmHG Vent. Rate : 070 BPM Atrial Rate : 070 BPM P-R Int : 192 ms QRS Dur : 106 ms QT Int : 446 ms P-R-T Axes : 011 -16 053 degrees QTc Int : 481 ms Normal sinus rhythm When compared with ECG of 04-JAN-2022 06:26, No significant change was found Confirmed by Zuhair Summers ([id number]) on 01/09/2022 11:24:47 AM Referred By: REFERRED SELF Confirmed By:Aki Summers
--- NOTE | 2022-01-09 12:29 | Palliative Care Progress Note ---
Date of Service January 09, 2022 Assessment & Plan (1) Chest pain: Plan: With lung cancer and bone mets. He will be seen by radiation oncology today to discuss possible palliative radiation. Started decadron daily. Continue fentanyl with prn hydromorphone. (2) Diabetic neuropathy: Plan: On adjuvant gabapentin. (3) Palliative care encounter: Plan: Jeff was talking about plans that he has for the next couple months "If I live that long". I asked him if he wanted to talk more about that. He tells me that after discussion yesterday, he is worried about his father who is caring for his mother who has dementia and dealing with his illness as well. He feels that is more difficult than his own worries about dying. He tells me that he wants to spend as much time as possible with his grandchildren. He is worried that they will think that he is a quitter if he chooses to stop dialysis. He wants them to remember him as a fighter. We talked about sometimes needing to shift the focus of the fight and opportunities for them to learn from him dying with dignity. He wonders how he will know when it is time to stop dialysis and what that will be like. We discussed that he would likely only have a week or two to live at that point and would be more and more sleepy until his dying time. He worries about having pain when he is dying and we talked about options available to help relieve his pain. At this time he is focused on paperwork and things around his apartment that need to be completed and visiting with friends to say goodbye. I told him that I spoke with [facility] who are able to follow him at home and help with symptom management and transition to hospice. Admission and Anticipated Discharge Date Admission Date: January 04, 2022 Subjective "Starting to have an appetite". No complaints of nausea. Moving bowels regularly. Rates pain in his chest as 8/10 today. Pain is "crushing" and constant. Not sleeping well because of pain. Review of Systems Review of Systems: ESAS Pain 3/3 Dyspnea 0//3 Nausea 0/3 Anxiety 1/3 Drowsiness 0/3 PPS 50% Physical Exam Constitutional: + ill appearing ENMT: Mouth: oral mucous membranes not dry Respiratory: normal respiratory effort; no labored breathing Gastrointestinal (Abdomen): LBM 9/6 Skin: Vascular skin changes Neurologic: moves all extremities and awake; not confused Results & Data ([facility]) Vital Signs (Past 12 Hours) Vital Signs Temp Pulse Pulse Pulse Resp BP Pulse Ox 01/09/22 11:12 97.7 F 76 18 118/71 96 01/09/22 10:22 97.5 F L 73 18 140/75 96 01/09/22 09:45 72 17 156/88 H 97 01/09/22 09:35 70 17 153/77 H 99 01/09/22 09:25 96.8 F L 71 16 135/74 95 01/09/22 07:17 98.1 F 77 78 20 177/94 H 99 01/09/22 03:50 98.1 F 78 20 133/80 96 O2 Del Method 01/09/22 11:12 Room Air 01/09/22 10:22 Room Air 01/09/22 09:45 Room Air 01/09/22 09:35 Room Air 01/09/22 09:25 Room Air 01/09/22 07:17 Room Air 01/09/22 03:50 Room Air PG Care Time/CCT Total # of Minutes Spent Total Time Spent: 39 Total Time Spent with Patient: Total time spent is greater than 50% in coordination of care (as documented) at patient's floor/unit and/or counseling patient: goals of care, prognosis, patient education and support Coding Level of Care Code 18877 Subseq Hosp Care Lvl 3 Diagnoses Chest pain R07.9 Chest pain type: unspecified Diabetic neuropathy E11.40 Palliative care encounter Z51.5 (1) Chest pain Chest pain type: unspecified Qualified Code(s): R07.9 - Chest pain, unspecified
[2022-01-09] MEDS: PANTOprazole 40 MG TAB PO SCH (12:31)
--- NOTE | 2022-01-09 13:36 | Radiation OncologyConsultation ---
Date of Consultation January 09, 2022 Assessment & Plan (1) Primary cancer of left lung metastatic to other site: This is a 56-year-old gentleman with no metastatic lung cancer. Previously seen in our office and treated for metastasis to left lateral rib area. This was completed 05/22/2021. He received 3000 cGy. This was divided over 5 fractions. He tolerated this well. He did state that following the treatment he did have resolution of pain. Unfortunately he has had steady increase now of the left lateral ribs once again. He also has pain of the spine. This is located between his shoulder blades. Studies have revealed metastatic disease now in the thoracic spine. He has changes noted of the ribs. There is a pathologic fracture of the ninth left rib. Images will be reviewed. We will have him brought to radiation therapy tomorrow for CT simulation. Final decision will be made as to areas of treatment. Supervising Physician Co-Signing Physician Notes ATTENDING ADDENDUM This patient's case was reviewed with the midlevel provider. All relevant clinical information including diagnostics and imaging studies were reviewed. Given the patient's areas of pain, I am recommending a course of palliative external beam radiation therapy to the thoracic spine and/or left ribs. The patient was seen at bedside however he was still recovering from his prior procedure earlier today so he will be brought down tomorrow for CT simulation for treatment planning to initiate radiation therapy. Consent will be obtained when he comes on to our department tomorrow. History of Present Illness Reason for Consultation: Radiation therapy for palliation of pain. Attending Physician: Julia La MD History of Present Illness Mr. Martins has a history of non-small cell carcinoma of the lung stage III. This was treated with systemic chemotherapy followed by a wedge resection in [place]. No radiation was required at that time and patient has been followed since. He has multiple comorbidities including gastroparesis and chronic pain, hypertension, diabetes. Patient does have a gastric pacemaker in place in the left abdominal cavity. 01/07/2021. Dr. Chaves performed an endoscopy following an abnormal CT of the GI tract and a history of nausea vomiting. Esophagitis with no bleeding was found in the middle third of the esophagus biopsy revealed an ulcerated squamous mucosa negative for HSV 1/2 and CMV. Case #: [id number]. 02/08/2021. PET/CT ordered by Dr. Lion Keith. This showed a lytic and mildly expansile change of the left lateral ninth rib with mild FDG activity of 3.18. No other obvious evidence of metastatic foci but is noted. 03/16/2021. Patient seen in follow-up by Dr. Lion Keith. He noted the finding on PET CT scan and recommended a biopsy for confirmation of potential metastatic disease. 04/04/2021. Dr. Mcfarlane performed an ultrasound and CT-guided percutaneous ninth posterior lateral left rib lesion biopsy. Pathology confirmed metastatic carcinoma consistent with lung origin. Patient's detected in the EGFR exons 18, 19, 20 and 21. Negative for BRAF mutations, negative for K-pepe G 12 C gene mutations, low PD-L1 expression, immunohistochemistry detection of ALK is negative, FISH analysis is positive for ROS I (6 q. 22) gene rearrangement. Accession #: [id number]. 04/26/2021. Patient seen in radiation oncology for evaluation and discussion of treatment options. 05/22/2021. Status post completion of radiation therapy. He had SBRT to the left rib. He received 3000 cGy given in divided doses of 5 fractions. 07/2021. Initiation of hemodialysis due to worsening kidney function. 11/03/2021. Medical oncology follow-up. Due to comorbidities and poor tolerance of previous chemotherapy decision was made for no further chemotherapy. 12/18/2021. Emergency room evaluation for intractable nausea and vomiting. Patient has severe gastroparesis and is status post gastric pacemaker. 12/25/2021. Emergency room evaluation for nausea and vomiting. Patient given IV Zofran and IV Reglan and IV Benadryl. 01/03/2022. Patient admitted with left-sided rib pain. 01/07/2022. Chest CT. Interval development of new bony lesions at T8 and the left eighth rib as well as T5-T6. Stable destructive lesion of the left ninth rib with pathologic fracture. Interval development of a left axillary node. Interval stability of left upper pleural-based mass. Interval resolution of previously noted infectious/inflammatory pneumonitis. 01/09/2022. Due to the ongoing rib pain our office was consulted. In discussing his discomfort he also stated he has pain in his back between his shoulder blades. He gives his pain level on admission at an 8. He is currently on a fentanyl patch 75 mcg/h change every 72 hours. He is on gabapentin 400 mg 3 times daily. He has hydromorphone available. Allergies Allergy/AdvReac Type Severity Reaction Status Date / Time bee venom protein (honey bee) Allergy Severe Swelling Verified 12/28/21 15:03 at site, SOB cat dander Allergy Unknown Unknown Verified 12/28/21 15:03 Penicillins Allergy Unknown Amoxicillin- Verified 12/28/21 15:03 "since " Home Medications Medication Instructions Recorded Confirmed Type blood sugar diagnostic 04/26/21 01/03/22 History flash glucose sensor (FreeStyle 04/26/21 01/03/22 History Amparo 14 Day Sensor kit) gabapentin 400 mg capsule 400 mg PO TID 04/26/21 01/03/22 History insulin glargine 100 unit/mL (3 7 unit subcut QPM 04/26/21 01/03/22 History mL) subcutaneous pen (Lantus Solostar U-100 Insulin) clonidine 0.2 mg/24 hr weekly 0.2 mg transdermal FR 06/30/21 01/03/22 History transdermal patch albuterol sulfate 90 mcg/actuation 2 puff inhalation Q4H PRN 07/22/21 01/03/22 Rx aerosol inhaler (Ventolin HFA) Shortness Of Breath #1 inhaler glucagon 1 mg solution for 1 mg IM ONCE PRN Hypoglycemia #1 ea 07/22/21 01/03/22 Rx injection levetiracetam 750 mg tablet 750 mg PO BID #30 tabs 07/22/21 01/03/22 Rx (Keppra) lisinopril 40 mg tablet 40 mg PO QAM 09/29/21 01/03/22 History omeprazole 40 mg capsule,delayed 40 mg PO QAM 09/29/21 01/03/22 History release Probiotic 1 tab PO DAILY 10/20/21 01/03/22 History fluticasone 250 mcg-salmeterol 50 1 inh inhalation QAM 10/20/21 01/03/22 History mcg/dose blistr powdr for inhalation metoclopramide HCl 10 mg tablet 10 mg PO TID PRN Nausea 10/20/21 01/03/22 History fentanyl 75 mcg/hr transdermal 75 mcg transdermal Q72H #3 ea 10/24/21 01/03/22 Rx patch hydromorphone 2 mg tablet 2 mg PO Q4H PRN Pain 12/18/21 01/03/22 History insulin aspart U-100 100 unit/mL 1 sliding scale dose subcut ACHS 12/18/2101/03 History (3 mL) subcutaneous pen (Novolog Flexpen U-100 Insulin aspart) meclizine 12.5 mg tablet 12.5 mg PO TID PRN Dizziness 12/18/21 01/03/22 History olanzapine 2.5 mg tablet 2.5 mg PO HS 12/18/21 01/03/22 History ondansetron 4 mg disintegrating 4 mg PO Q8H PRN Nausea 12/18/21 01/03/22 History tablet metoclopramide HCl 5 mg tablet 5 mg PO DAILY #14 tabs 12/25/21 01/03/22 Rx (Reglan) Patient History Medical History Anemia Cancer lymph nodes - recent dx- 10/2021 follows w/ dr jane [facility] Chronic pain COPD (chronic obstructive pulmonary disease) Diabetic gastroparesis DM type 1 (diabetes mellitus, type 1) Enlarged prostate ESRD (end stage renal disease) on dialysis Gastroparesis s/p gastric stimulator History of Crohn's disease HTN (hypertension) Lung cancer Dx 2015 [facility]; + hilar nodes; s/p left upper lobectomy + chemo Neurogenic bladder On home oxygen therapy 2L/min NC PRN has used "in a while" Orthostatic hypotension Port-A-Cath in place 10/2021 [facility] Presence of gastric pacemaker 12/2021 at [facility] recently for adjustments Primary cancer of left lung metastatic to other site Seizure disorder Hx grand mal seizures, no recent seizures has been many years Surgical History H/O colonoscopy H/O esophagogastroduodenoscopy History of cholecystectomy History of knee surgery LEFT X 17/RIGHT X 2 History of tonsillectomy and adenoidectomy Hx of total knee arthroplasty S/P lobectomy of lung SHAWN Status post insertion of intrathecal pump explanted Family History Mother Diabetes Dementia Father Hypertension Diabetes Sister Crohn's disease Social History Smoking Status: Former smoker Tobacco Type: Cigarettes Second Hand Exposure: No; Do You Dip or Chew Tobacco: Yes; Tobacco Cessation Education Requested by Patient: No Hx Alcohol Use: No Hx Substance Use: No Preferred Language: [place] Communication Ability: Effective Visual Impairment: No Limitations Sat Tutor Required: No Beliefs That Will Affect Care: None marital status: Single Current Living Situation: Alone Current Living Situation Comment: has family close by and available to assist current occupational status: disabled How many Children do You have: 5 Other Information That Helps Us Care for You: No Feels Safe at Home: Yes Safety Concerns: Feels Safe At This Time Diet Comment: Carb counting caffeine: No Physical Activity Frequency: Does not Exercise Physical Activity Frequency Comment: walks when able Assistive Devices: Cane and Walker Review of Systems Review of Systems: 13 point review of systems completed. He did have a headache on admission. Has no complaint of headache today. Physical Exam Constitutional: WD/WN, vitals as above Eyes: PERRL, conjunctivae normal, anicteric sclerae ENMT: Ears: no hearing impairment Neck: trachea midline, no thyromegaly Respiratory: normal respiratory effort, lungs clear to auscultation Cardiovascular: RRR, no murmur, no edema Gastrointestinal (Abdomen): normal bowel sounds, soft, nontender, no hepatosplenomegaly Musculoskeletal: There is tenderness of the paraspinous muscular and spinal processes at the T-spine. He has tenderness of the left lateral lower ribs. Skin: no rashes, warm and dry Neurologic: Normal strength and coordination. Psychiatric: A+Ox3, euthymic affect Results (Rad Onc) [facility], [id number] CT Scan Report Patient: JEFF MARTINSit Date: 01/04/22#: [id number]: [id number]ct ID:[id number]: [address]Birth Date: 1965City Zip: [place] [address]Nmo: 56Location: 2ESex: MRoom/Bed: R771-3Hpt Phy: Julia La I. MDDiagnosis: HTN CRISIS, CPPri Phy: Adonis Juan MDService Date: 01/07/22[facility] Phy:Interpreting Phy: Tan Muller [facility] Phy: Darian Chinchilla MD Ordering Phy: Julia La MD cc: ~ CT chest diagnostic wo con CLINICAL HISTORY: Persistent chest pain/chest wall tenderness TECHNIQUE: Multidetector row helical CT of the chest was performed. Coronal and sagittal reformations were obtained. Automated dose lowering techniques and/or adjustment according to patient size were utilized for this exam. CT DOSE: 334.69 mGy.cm Comparison: None available at the time of this dictation. FINDINGS: Lungs and pleura: Atelectasis versus scarring is seen in the dependent portions of the lungs. Again noted is a pleural-based mass in the left upper lobe mediastinal surface measuring 43 x 30 mm. There is a 5 mm nodule in the left lower lobe (series 4) which is unchanged from prior exam. Right apical nodule measuring 3 mm is unchanged as well (image 38) Heart and pericardium: Heart size is normal. No pericardial effusion. Vessels: The pulmonary trunk measures 32 mm in diameter. Mediastinum and laura: Mediastinal lymphadenopathy is again seen measuring up to 19 mm in the subcarinal station. Allow evaluation is limited by noncontrast technique, this appears similar to prior exam. Chest wall and lower neck: Left axillary lymph node measures 24 mm in short axis, markedly enlarged from prior exam. Additional prominent lymph nodes are noted in the left axillary and subclavian stations. Small thyroid nodules are noted. Abdomen: Unremarkable. Bones: Interval development of a large T8 lucent lesion. Destructive lesions of the lateral eighth and ninth ribs are seen, the eighth rib lesion appears new from prior exam. There is also a destructive appearing lesion at T5-T6 crossing the disc space. IMPRESSION: 1. Interval development of new bony lesions at T8 and the left eighth rib as well as at T5-T6. A definite pathologic fractures are seen. 2. Stable destructive lesion of the left ninth rib with pathologic fracture. 3. Interval enlargement of a left axillary node which now measures 24 mm in short axis, previously measured 14 mm. Redemonstration of mediastinal nodes, approximately unchanged. 4. Interval stability of left upper pleural-based mass. 5. Pulmonary hypertension. 6. Interval resolution of previously noted infectious/inflammatory pneumonitis. ACT 112: Negative or not required by law. Electronically signed by: Tan Muller M.D. 01/07/2022 12:58 PM Dictated: 01/07/22 1246Transcribed: 01/07/22 1246 Time Spent Midlevel I spent [10] minutes in preparation for this follow up evaluation including reviewing all the clinical records, reviewing laboratory studies, pathology reports and imaging results. I spent [15] minutes with direct face to face interaction with the patient and/or family including performing a physical exam and answering all questions. I spent [10] minutes documenting this patient's visit.
[2022-01-09] MEDS: OLANZAPINE 2.5 MG TAB PO SCH (21:10)
[2022-01-09] MEDS: amLODIPine BESYLATE 5 MG TAB PO SCH (21:10)
[2022-01-09] MEDS: LANTUS PER UNIT CHARGE SQ SCH (21:23)
[2022-01-09] MEDS: HYDROmorphone INJ 1 MG/ML SYRINGE IV PRN (21:24)
[2022-01-09] MEDS: LORazepam 0.5 MG TAB PO PRN (22:22)
[2022-01-10] MEDS: CHECK CLONIDINE PATCH PLACEMENT SCH ×3 (00:01→15:26)
[2022-01-10] MEDS: CHECK fentaNYL PATCH PLACEMENT SCH ×3 (00:02→15:26)
[2022-01-10] MEDS: HYDROmorphone HCL 2 MG TAB PO PRN ×5 (01:26→21:03)
[2022-01-10] MEDS: ACETAMINOPHEN 325 MG TAB PO SCH ×4 (04:00→21:06)
[2022-01-10] MEDS ORDERED: CLINDAMYCIN PHOS 900 MG/6 ML VIAL IV SCH (06:00)
[2022-01-10 06:23] LABS: Hematocrit (blood only) 26.4 % (40.1-51.0); Hemoglobin 8.2 g/dl (14.0-18.0); Mean Corpuscular Hemoglobin 29.2 pg (25.0-34.0); Mean Corpuscular Hgb Conc 31.1 g/dL (32.0-36.0); Mean Platelet Volume 10.9 fL (9.4-12.4); Platelet Count 255 K/uL (130-400); RDW Coefficient of Variation 13.4 % (11.5-14.5); RDW Standard Deviation 46.1 fL (36.4-46.3); Red Blood Count 2.81 M/uL (4.63-6.08); White Blood Count 4.28 K/ul (4.8-10.8)
[2022-01-10] MEDS: HYDROmorphone INJ 1 MG/ML SYRINGE IV PRN (06:42)
[2022-01-10 06:45] LABS: BUN Creatinine Ratio 7.5 (10-20); Calcium 7.6 mg/dl (8.5-10.1); Creatinine Clr Calc Pharmacy 10.9 ml/min; Est GFR (Non-African American) 6.9 ml/min; Potassium 5.5 mmol/L (3.5-5.1)
--- NOTE | 2022-01-10 07:24 | Post Operative Brief Note ---
Immediate Post Op Note v1 Date of Surgery January 10, 2022 Pre & Post Diagnosis Operation Date: 01/09/22 08:00 Pre-Op Diagnosis: end stage renal disease Post-Op Diagnosis: end stage renal disease I identified the patient and participated in the time-out.: Yes Procedure Operation Date: 01/09/22 08:00 Actual Procedures p Left Antecubital Basilic Vein Arteriovenous Fistula Creation, Repair Central Venous Device(Left) - Joon Mattson MD Surgeon Joon Mattson MD Varnisher Boris,PAC Estimated Blood Loss 5 Findings Consistent with Post-Op Diagnosis Anesthesia Type MAC Complications none Disposition Accompanied Patient To Recovery: No Disposition: Recovery Room
--- NOTE | 2022-01-10 07:37 | Operative Report ---
Post Operative Report Pre & Post Diagnosis Operation Date: 01/09/22 08:00 Pre-Op Diagnosis: end stage renal disease Post-Op Diagnosis: end stage renal disease I identified the patient and participated in the time-out.: Yes Procedure Operation Date: 01/09/22 08:00 Actual Procedures p Left Antecubital Basilic Vein Arteriovenous Fistula Creation, Repair Central Venous Device(Left) - Joon Mattson MD Surgeon Joon Mattson MD Access Coordinator Boris,PAC Estimated Blood Loss 5 Findings Consistent with Post-Op Diagnosis Specimens none Anesthesia Type MAC Complications none Disposition Accompanied Patient To Recovery: No Disposition: Recovery Room Indications This is a 56-year-old gentleman with end-stage renal disease on dialysis. He is using a PermCath for dialysis. Permanent fistula was recommended. He is right- handed. His only usable vein in the left arm is the basilic. A left antecubital basilic vein fistula was recommended. I have discussed the risks options and benefits of the procedure with the patient. The patient understands the risks options and benefits and agrees to the procedure. Description of Procedure The patient was taken to the operating placed supine position. Left arm was then prepped and draped in a sterile manner. Timeout was performed and the patient was identified. Local anesthetic was then administered below the antecubital crease. A transverse incision was made just below the antecubital fossa. Dissection was carried down through the median cubital vein was identified. The branch to the basilic vein was sclerotic. The cephalic vein origin appeared to be patent. We therefore ligated the distal portion of the median cubital and divided it. We used a #3 Arnulfo catheter but only passed up a couple centimeters into the cephalic and then was occluded. There was no backbleeding seen from the cephalic vein. This was then ligated. Local anesthetic was then administered further medially. Incision was carried more medially in the basilic vein proper was identified. It was small but he appeared to be usable for fistula creation. The basilic vein was dissected more distally. It was ligated distally and divided. Was freed up and swung over to the antecubital fossa. The brachial artery was identified. It was good caliber and soft. It was freed up for short distance. The basilic vein was then dilated gently with heparinized saline. I did dilate up nicely to approximately 3 mm in size. The brachial artery was then clamped proximal distally. A longitudinal arteriotomy was then made. The basilic vein was then anastomosed to the brachial artery in an end-to-side fashion using a 7-0 Prolene suture in the usual vascular fashion. Prior to completing the closure backbleeding and fo rward bleeding was allowed to occur. The final few sutures were then placed and securely tied. Clamps were then removed. There was good flow through the fistula. There was a palpable thrill in the proximal portion of the basilic vein. Adequate stasis was then noted of the wound. Wound was then closed in the usual fashion with a running 3-0 Vicryl suture for the subcutaneous layer and a running 4-0 subcuticular Vicryl suture of the skin edges. Dermabond was used for dressing. We then prepped the PermCath. Clamp was then placed on the PermCath at the hub. Distal end was transected. The broken clamp was removed. The adapter and new PermCath port was then attached to the old PermCath. The clamp was then screwed into place. The hemostat was removed. The port was then aspirated and flushed with heparinized saline. The patient left the operation room in satisfactory condition and tolerated the procedure well. All needle and sponge counts were correct at the end of the procedure. Nessa Hair Pac assisted due to lack of resident availability and was necessary for positioning, draping, retraction, wound closure deep layers, subcutaneous tissue, and skin closure and was necessary for assisting with the case. I attest to the content of the Intraoperative Record and any orders documented therein. Any exceptions are noted below.
[2022-01-10] MEDS ORDERED: PHARMACY GLYCEMIC MGMT CONSULT PRN (08:22)
[2022-01-10] MEDS ORDERED: INSULIN HUMAN REGULAR PER UNIT 3 UNITS in SYRINGE 2.97 ML IV STA (08:25)
[2022-01-10] MEDS: fentaNYL 75 MCG/HR TDSY TD SCH (08:28)
[2022-01-10] MEDS: INSULIN ASPART PER UNIT SC SCH ×4 (08:28→21:13)
[2022-01-10] MEDS: PANTOprazole 40 MG TAB PO SCH (08:35)
[2022-01-10] MEDS: carvediloL 6.25 MG TAB PO SCH ×2 (08:35→21:04)
[2022-01-10] MEDS: ADVANCED PROBIOTIC 1250 MG CAPSULE PO SCH (08:35)
[2022-01-10] MEDS: DOCUSATE SODIUM/SENNA 50/8.6MG TAB PO SCH (08:35)
[2022-01-10] MEDS: levETIRAcetam 250 MG TAB PO SCH ×2 (08:35→21:06)
[2022-01-10] MEDS: dexAMETHasone 4 MG TAB PO SCH (08:35)
[2022-01-10] MEDS: METOCLOPRAMIDE HCL 5 MG TABLET PO SCH (08:36)
[2022-01-10] MEDS: GABAPENTIN 400 MG CAP PO SCH ×3 (08:36→21:04)
[2022-01-10] MEDS: FLUTICASONE/VILANTEROL 200/25MCG 14 PUFFS/INHALER INH SCH (08:36)
[2022-01-10] MEDS: NICOTINE 14 MG/24 HR PATCH TD SCH (08:36)
[2022-01-10] MEDS: lisinopril 40 MG TAB PO SCH (08:36)
[2022-01-10] MEDS: SODIUM CHLORIDE 0.9% 1000ML 1,000 ML IV SCH (08:48)
[2022-01-10] MEDS ORDERED: LANTUS PER UNIT CHARGE SQ ONE (10:15)
--- NOTE | 2022-01-10 10:18 | Pharmacy Report ---
Pharmacy Glycemic Short Note 2 - Date of Service January 10, 2022 - Glycemic Short BSG Results (Last 24 hours): 01/09/22 01/09/22 01/09/22 11:31 16:02 20:33 Glucose POC Glucose 163 H 157 H 231 H 01/10/22 01/10/22 01/10/22 05:34 07:12 07:12 Glucose 421 H* POC Glucose 436 H* 432 H* OUTPATIENT ANTIDIABETIC REGIMEN: * Lantus 7 units SC HS * Novolog ACHS (unknown dose, but prior visits listed as <30 units/day) * HbA1c: 9.1% (10/21/21) * However, this result is likely somewhat unreliable in ESRD patients d/t interactions between the A1c analyzing technique and high levels of urea in ESRD, reduced RBC life span, iron deficiency anemia, and EPO administration. HbA1c > 7.5% in ESRD patient may overestimate the extent of hyperglycemia in ESRD patients. ASSESSMENT: * 56 yo M w T1DM well known to pharmacy glycemic service admitted. Patient has historically labile BSGs while inpatient (hypo/hyperglycemia). * Complicated PMH includes ESRD, T1DM, and left Non-small cell lung cancer with mets to bone * Admitted 01/03 for hypertensive crisis. Palliative discussion on 01/08 - patient not yet ready to transition to hospice. Poor prognosis noted. Dexamethasone started. * BSG's were moderately well controlled for this patient (given history of labile BSG's) earlier in admission, but pharmacy consulted for glycemic management on 01/10 2nd AM fasting BSG >400 mg/dL, likely precipitated by dexamethasone which started on 01/09 * No prior history of being on steroids, but known labile BSG's. Will attempt to maintain on basal/bolus, but patient may require temporary insulin drip while steroid effects on BSG's are determined/assessed. Will increase Lantus and tighten Novolog parameters. PLAN FOR INPATIENT GLYCEMIC CONTROL: * IV regular insulin 3 units x1 this AM * Basal insulin * Lantus 5-9 units SQ BID, based on BSG * Bolus insulin * NovoLog per scale ACHS or Q6hrs while NPO * Goal Range: Low 120 mg/dL - High 160 mg/dL * Correction Factor: 35 mg/dL/unit * Nutritional / Prandial insulin per carb ratio of 1 unit per 11 grams CHO consumed
[2022-01-10] MEDS ORDERED: SODIUM CHLORIDE 0.9% 1000ML 1,000 ML IV PRN (11:40)
--- NOTE | 2022-01-10 11:58 | Nephrology Progress Note ---
Date of Service January 10, 2022 Assessment & Plan Admission and Anticipated Discharge Date Admission Date: January 04, 2022 Subjective Assessment & Plan (1) ESRD (end stage renal disease) on dialysis: Plan: Dialysis today. BP is high but he does have more edema than usual. So will try to take 3.5 kilo off in 3.5 hrs. continue lisinopril 40 mg,amlodipine, clonidine patch and coreg watching HR carefully Bp can be erratic also because of pain Subjective Still has lot of Pain chest and back. Short acting painmeds help him. BP seems better. has more edema than usual. had AVF surgery yesterday and Also evaluated by rad onc and palliative med. Review of Systems Review of Systems: All systems reviewed & are unremarkable except as noted in HPI & below Physical Exam Physical Exam: Eyes- anicteric Neck- no JVD Lungs- clear breath sounds bilaterally, no rales/wheezes Heart- normal rate, regular rhythm; no murmurs Abdomen- normal bowel sounds, nondistended, soft, nontender No CVA tenderness Extremities- 2+pretibial edema, no calf tenderness Neuro- alert, oriented x 3; no gross focal neurologic deficits Skin- warm & dr Results & Data ([facility]) Vital Signs (Past 12 Hours) Vital Signs Temp Pulse Pulse Resp BP Pulse Ox O2 Del Method 01/10/22 11:14 36.5 C 67 18 131/77 97 Room Air 01/10/22 07:30 76 01/10/22 07:13 36.6 C 86 18 167/93 H 96 Room Air 01/10/22 02:58 37.0 C 77 18 128/76 92 Room Air
[2022-01-10] MEDS ORDERED: HYDROmorphone INJ 1 MG/ML SYRINGE IV ONE (13:06)
--- NOTE | 2022-01-10 13:34 | Hospitalist Progress Note ---
Date of Service January 10, 2022 Assessment & Plan (1) Chest pain: Plan: Chest pain is atypical mostly due to ca mets CT chest 01/07/22 showed new bony lesions at T8, left 8th rib as well as T5-6, stable destructive lesion on left 9th rib, interval enlargement of left axillary node and stable Left upper pleural based mass Trop is normal. No ACS on EKG. Echo noted normal LV size with moderate concentric LVH without segmental wall motion abnormalities, EF of 55 to 60%. Continue carvedilol Continue po dilaudid and fentanyl patch History of COPD Metastatic NSCLC status post surgery, radiation/incomplete chemotherapy secondary to intolerance Patient not a candidate for additional treatment as per recent outpatient Oncology note (2) Hypertensive crisis: Plan: Presenting as headache and chest pain symptoms ?Hypertensive emergency Patient reports chronic intermittent generalized body pains for which he is on opioids (confirmed on PDMP) Concern for possible poor med adherence considering recurrent admissions; likely complicated by nausea/vomiting related to gastroparesis Continue lisinopril, clonidine Continue amlodipine and carvedilol started during this visit BP controlled (3) Wound of left foot: Plan: CT foot does not show any osteomyelitis Related to dropfoot brace which was quite tight Ortho eval appreciated Wound care while inpatient Reports he already made appt with a dip tanker (4) Primary cancer of left lung metastatic to other site: Plan: On 01/08/22, Previous hospitalist spoke with patient's Oncologist, Dr Lion Keith who stated no further treatment/chemo is recommended. Palliative on board Patient is not ready to transition to hospice, stated he has somethings to take care of before that. He understands prognosis is poor. Wants to continue full code for now until he is ready Radiation oncology on board S/P CT simulation done today for treatment planning to initiate radiation therapy tomorrow Continue dexamethasone Palliative made referral to [facility] Palliative who will follow up with patient. (5) Intractable nausea and vomiting: (6) Gastroparesis: Plan: History of IBD, gastroparesis status post gastric pacemaker, symptoms better after recent pacemaker adjustment Continue antiemetics prn (7) ESRD (end stage renal disease) on dialysis: Plan: Nephrology on board Schedule for HD on M//F (8) DM type 1 (diabetes mellitus, type 1): Plan: Recent hemoglobin A1c of 9.1 last October 2021 Continue insulin scale per protocol Monitor BG with dexamethasone Chronic anemia Worsening anemia. No obvious blood loss S/p 1 PRBC with HD on 01/05/22 Last Hb is 8.2 Monitor Seizure disorder, stable on regimen DVT ppx heparin drip on low due to low hgb, plan to resume tomorrow Will add SCD Admission and Anticipated Discharge Date Admission Date: January 04, 2022 Subjective Pt was seen and examined for follow up pain Lying in bed with no acute distress Pt said that he continues to have pain around her back and chest that related to her cancer He said that he only vomits once today He is planning to get HD done today Review of Systems Review of Systems: All systems reviewed & are unremarkable except as noted in Subjective Physical Exam Physical Exam: General- No acute distress Head- atraumatic Eyes- PERRL, EOMI, ENT- oropharynx clear Neck- supple, no JVD Lungs- clear to auscultation, + chest wall tenderness Heart- regular rhythm; no murmur Abdomen- normal bowel sounds, soft, nontender Extremities- no calf tenderness, +left foot blister Neuro- alert, oriented x 3; PERRL, EOMI; no facial palsy; no dysarthria Skin- warm & dry Results & Data Results & Data ([facility]) Vital Signs (Past 12 Hours) Vital Signs Temp Pulse Pulse Resp BP Pulse Ox O2 Del Method 01/10/22 11:14 36.5 C 67 18 131/77 97 Room Air 01/10/22 07:30 76 01/10/22 07:13 36.6 C 86 18 167/93 H 96 Room Air 01/10/22 02:58 37.0 C 77 18 128/76 92 Room Air (1) Chest pain Chest pain type: unspecified Qualified Code(s): R07.9 - Chest pain, unspecified
[2022-01-10] MEDS: amLODIPine BESYLATE 5 MG TAB PO SCH (21:05)
[2022-01-10] MEDS: OLANZAPINE 2.5 MG TAB PO SCH (21:07)
[2022-01-10] MEDS: LANTUS PER UNIT CHARGE SQ SCH (21:12)
[2022-01-10] MEDS ORDERED: HYDROmorphone INJ 1 MG/ML SYRINGE IV STA (22:01)
[2022-01-10] MEDS: LIDOCAINE 5% 1 PATCH TD SCH (23:07)
[2022-01-10] MEDS: LORazepam 0.5 MG TAB PO PRN (23:07)
[2022-01-11] MEDS ORDERED: INSULIN ASPART PER UNIT SC ONE (00:15)
[2022-01-11] MEDS: HYDROmorphone HCL 2 MG TAB PO PRN ×8 (00:17→23:16)
[2022-01-11] MEDS: CHECK CLONIDINE PATCH PLACEMENT SCH ×4 (00:23→23:17)
[2022-01-11] MEDS: CHECK fentaNYL PATCH PLACEMENT SCH ×5 (00:25→23:17)
[2022-01-11] MEDS ORDERED: LACTULOSE SYRUP 30 GM/45 ML UDP PO STA (00:51)
[2022-01-11] MEDS ORDERED: POLYETHYLENE (MIRALAX) 17 GM PACK PO STA (00:51)
[2022-01-11] MEDS ORDERED: DOCUSATE SODIUM/SENNA 50/8.6MG TAB PO STA (01:00)
[2022-01-11] MEDS: ACETAMINOPHEN 325 MG TAB PO SCH ×4 (03:34→20:30)
[2022-01-11] MEDS ORDERED: INSULIN ASPART PER UNIT SC SCH ×2 (04:00)
[2022-01-11] MEDS ORDERED: METHYLNALTREXONE BROMIDE 12 MG/0.6 ML VIAL SQ STA (05:44)
[2022-01-11] MEDS: levETIRAcetam 250 MG TAB PO SCH ×2 (08:03→20:25)
[2022-01-11] MEDS: METOCLOPRAMIDE HCL 5 MG TABLET PO SCH (08:03)
[2022-01-11] MEDS: lisinopril 40 MG TAB PO SCH (08:04)
[2022-01-11] MEDS: GABAPENTIN 400 MG CAP PO SCH ×3 (08:04→20:25)
[2022-01-11] MEDS: DOCUSATE SODIUM/SENNA 50/8.6MG TAB PO SCH ×2 (08:04→20:26)
[2022-01-11] MEDS: carvediloL 6.25 MG TAB PO SCH ×2 (08:04→20:25)
[2022-01-11] MEDS: ADVANCED PROBIOTIC 1250 MG CAPSULE PO SCH (08:04)
[2022-01-11] MEDS: dexAMETHasone 4 MG TAB PO SCH (08:04)
[2022-01-11] MEDS: NICOTINE 14 MG/24 HR PATCH TD SCH (08:04)
[2022-01-11] MEDS: PANTOprazole 40 MG TAB PO SCH (08:05)
[2022-01-11] MEDS: FLUTICASONE/VILANTEROL 200/25MCG 14 PUFFS/INHALER INH SCH (08:05)
[2022-01-11] MEDS: INSULIN ASPART PER UNIT SC SCH ×4 (08:09→21:34)
[2022-01-11] MEDS: LANTUS PER UNIT CHARGE SQ SCH ×2 (08:09→21:34)
[2022-01-11 08:33] LABS: Hematocrit (blood only) 27.7 % (40.1-51.0); Hemoglobin 8.8 g/dl (14.0-18.0); Mean Corpuscular Hemoglobin 28.9 pg (25.0-34.0); Mean Corpuscular Hgb Conc 31.8 g/dL (32.0-36.0); Mean Corpuscular Volume 91.1 fL (80.0-100.0); Mean Platelet Volume 10.6 fL (9.4-12.4); Platelet Count 266 K/uL (130-400); RDW Coefficient of Variation 13.5 % (11.5-14.5); Red Blood Count 3.04 M/uL (4.63-6.08); White Blood Count 6.56 K/ul (4.8-10.8)
[2022-01-11 09:10] LABS: BUN Creatinine Ratio 8.4 (10-20); Calcium 8.2 mg/dl (8.5-10.1); Creatinine Clr Calc Pharmacy 15.7 ml/min; Est GFR (African American) 13.6 ml/min; Est GFR (Non-African American) 11.7 ml/min; Potassium 4.1 mmol/L (3.5-5.1)
[2022-01-11] MEDS: LIDOCAINE 5% 1 PATCH TD SCH (11:51)
--- NOTE | 2022-01-11 12:08 | Pharmacy Report ---
Pharmacy Glycemic Short Note 2 - Date of Service January 11, 2022 - Glycemic Short BSG Results (Last 24 hours): 01/10/22 01/10/22 01/10/22 18:15 20:16 23:59 Glucose POC Glucose 237 H 287 H 369 H* 01/11/22 01/11/22 01/11/22 00:00 03:38 03:53 Glucose POC Glucose 350 H* 391 H* 402 H* 01/11/22 01/11/22 01/11/22 07:30 08:16 11:22 Glucose 256 H POC Glucose 264 H 233 H OUTPATIENT ANTIDIABETIC REGIMEN: * Lantus 7 units SC HS * Novolog ACHS (unknown dose, but prior visits listed as <30 units/day) * HbA1c: 9.1% (10/21/21) * However, this result is likely somewhat unreliable in ESRD patients d/t interactions between the A1c analyzing technique and high levels of urea in ESRD, reduced RBC life span, iron deficiency anemia, and EPO administration. HbA1c > 7.5% in ESRD patient may overestimate the extent of hyperglycemia in ESRD patients. ASSESSMENT: 01/11: * BSGs extremely labile since initiation of steroids: [phone]/dL. Received 16 units of basal and 47 units of bolus insulin yesterday which is approximately 3X his normal overall daily requirement. * Continues on dexamethasone 4mg PO daily and tolerating diet. * Continue with Lantus sliding scale BID based upon BSG and titrate conservatively. Novolog tightened slightly to 30/10 to help with prandial BSG coverage. Will continue to monitor closely given tenuous glycemic status. 01/10: * 56 yo M w T1DM well known to pharmacy glycemic service admitted. Patient has historically labile BSGs while inpatient (hypo/hyperglycemia). * Complicated PMH includes ESRD, T1DM, and left Non-small cell lung cancer with mets to bone * Admitted 01/03 for hypertensive crisis. Palliative discussion on 01/08 - patient not yet ready to transition to hospice. Poor prognosis noted. Dexamethasone started. * BSG's were moderately well controlled for this patient (given history of labile BSG's) earlier in admission, but pharmacy consulted for glycemic management on 01/10 2nd AM fasting BSG >400 mg/dL, likely precipitated by dexamethasone which started on 01/09 * No prior history of being on steroids, but known labile BSG's. Will attempt to maintain on basal/bolus, but patient may require temporary insulin drip while steroid effects on BSG's are determined/assessed. Will increase Lantus and tighten Novolog parameters. PLAN FOR INPATIENT GLYCEMIC CONTROL: * Basal insulin * Lantus 5-9 units SQ BID, based on BSG * Bolus insulin * NovoLog per scale ACHS or Q6hrs while NPO * Goal Range: Low 120 mg/dL - High 160 mg/dL * Correction Factor: 30 mg/dL/unit * Nutritional / Prandial insulin per carb ratio of 1 unit per 10 grams CHO consumed
[2022-01-11] MEDS: HEPARIN 100 UNIT/ML 5ML FLUSH FLUSH PRN (12:38)
--- NOTE | 2022-01-11 14:55 | Hospitalist Progress Note ---
Date of Service January 11, 2022 Assessment & Plan (1) Chest pain: Plan: Chest pain is atypical mostly due to ca mets CT chest 01/07/22 showed new bony lesions at T8, left 8th rib as well as T5-6, stable destructive lesion on left 9th rib, interval enlargement of left axillary node and stable Left upper pleural based mass Trop is normal. No ACS on EKG. Echo noted normal LV size with moderate concentric LVH without segmental wall motion abnormalities, EF of 55 to 60%. Continue carvedilol Continue po Dilaudid and fentanyl patch History of COPD Metastatic NSCLC status post surgery, radiation/incomplete chemotherapy secondary to intolerance Patient not a candidate for additional treatment as per recent outpatient Oncology note (2) Primary cancer of left lung metastatic to other site: Plan: On 01/08/22, Previous hospitalist spoke with patient's Oncologist, Dr Lion Keith who stated no further treatment/chemo is recommended. Palliative on board Patient is not ready to transition to hospice, stated he has somethings to take care of before that. He understands prognosis is poor. Wants to continue full code for now until he is ready Radiation oncology on board S/P CT simulation for treatment planning to initiate radiation therapy Pt will go for radiation therapy today Continue dexamethasone Palliative made referral to [facility] Palliative who will follow up with patient. Case discussed with Palliative that recommended no change in the pain med (3) Hypertensive crisis: Plan: Presenting as headache and chest pain symptoms ?Hypertensive emergency Patient reports chronic intermittent generalized body pains for which he is on opioids (confirmed on PDMP) Concern for possible poor med adherence considering recurrent admissions; likely complicated by nausea/vomiting related to gastroparesis Continue lisinopril, clonidine Continue amlodipine and carvedilol started during this visit BP controlled (4) Wound of left foot: Plan: CT foot does not show any osteomyelitis Related to dropfoot brace which was quite tight Ortho eval appreciated Wound care while inpatient Reports he already made appt with a porcelain turner (5) Intractable nausea and vomiting: (6) Gastroparesis: Plan: History of IBD, gastroparesis status post gastric pacemaker, symptoms better after recent pacemaker adjustment Continue antiemetics prn (7) ESRD (end stage renal disease) on dialysis: Plan: Nephrology on board Schedule for HD on // Last HD was yesterday (8) DM type 1 (diabetes mellitus, type 1): Plan: Recent hemoglobin A1c of 9.1 last October 2021 BP elevated due to dexamethasone Continue Glargine and novolog sliding scale Pharmacy on board for glycemic management Continue monitor BS closely while on Dexamethasone Chronic anemia Worsening anemia. No obvious blood loss S/p 1 PRBC with HD on 01/05/22 Hb is 8.8 today stable Seizure disorder, stable on regimen DVT ppx will consider to resume subq heparin if hgb continues to be stable. continue heparin during HD Admission and Anticipated Discharge Date Admission Date: January 04, 2022 Subjective Pt was seen and examined for follow up pain Lying in bed with no acute distress watching TV Early today he was using his walker to ambulate in the hallway He is scheduled today for radiation therapy He said that he continues to have generalized pain Review of Systems Review of Systems: All systems reviewed & are unremarkable except as noted in Subjective Physical Exam Physical Exam: General- No acute distress Head- atraumatic Eyes- PERRL, EOMI, ENT- oropharynx clear Neck- supple, no JVD Lungs- clear to auscultation, + chest wall tenderness Heart- regular rhythm; no murmur Abdomen- normal bowel sounds, soft, nontender Extremities- no calf tenderness, +left foot blister, +edema Neuro- alert, oriented x 3; PERRL, EOMI; no facial palsy; no dysarthria Skin- warm & dry Results & Data Results & Data ([facility]) Vital Signs (Past 12 Hours) Vital Signs Temp Pulse Pulse Pulse Resp BP Pulse Ox 01/11/22 11:25 36.5 C 79 18 143/91 H 98 01/11/22 09:00 85 01/11/22 09:00 01/11/22 07:00 36.7 C 81 20 162/94 H 98 01/11/22 03:00 36.8 C 85 18 121/76 93 O2 Del Method 01/11/22 11:25 Room Air 01/11/22 09:00 01/11/22 09:00 Room Air 01/11/22 07:00 Room Air 01/11/22 03:00 Room Air (1) Chest pain Chest pain type: unspecified Qualified Code(s): R07.9 - Chest pain, unspecified
[2022-01-11] MEDS: OLANZAPINE 2.5 MG TAB PO SCH (20:25)
[2022-01-11] MEDS: amLODIPine BESYLATE 5 MG TAB PO SCH (20:26)
[2022-01-11] MEDS: LORazepam 0.5 MG TAB PO PRN (23:16)
[2022-01-12] MEDS: GABAPENTIN 400 MG CAP PO SCH ×3 (01:12→20:13)
[2022-01-12] MEDS: HYDROmorphone HCL 2 MG TAB PO PRN ×5 (02:11→18:37)
[2022-01-12] MEDS: ACETAMINOPHEN 325 MG TAB PO SCH ×4 (02:59→20:45)
[2022-01-12 06:00] LABS: Hematocrit (blood only) 26.2 % (40.1-51.0); Hemoglobin 8.2 g/dl (14.0-18.0); Mean Corpuscular Hemoglobin 28.9 pg (25.0-34.0); Mean Corpuscular Hgb Conc 31.3 g/dL (32.0-36.0); Mean Corpuscular Volume 92.3 fL (80.0-100.0); Mean Platelet Volume 10.6 fL (9.4-12.4); Platelet Count 252 K/uL (130-400); RDW Coefficient of Variation 13.3 % (11.5-14.5); RDW Standard Deviation 45.2 fL (36.4-46.3); Red Blood Count 2.84 M/uL (4.63-6.08); White Blood Count 6.29 K/ul (4.8-10.8)
[2022-01-12] MEDS ORDERED: SODIUM CHLORIDE 0.9% 1000ML 1,000 ML IV PRN (07:00)
[2022-01-12 07:01] LABS: BUN Creatinine Ratio 8.5 (10-20); Calcium 7.9 mg/dl (8.5-10.1); Creatinine Clr Calc Pharmacy 11.9 ml/min; Est GFR (African American) 9.8 ml/min; Est GFR (Non-African American) 8.4 ml/min; Potassium 4.9 mmol/L (3.5-5.1)
[2022-01-12] MEDS: lisinopril 40 MG TAB PO SCH (08:09)
[2022-01-12] MEDS: levETIRAcetam 250 MG TAB PO SCH ×2 (08:09→20:12)
[2022-01-12] MEDS: ADVANCED PROBIOTIC 1250 MG CAPSULE PO SCH (08:09)
[2022-01-12] MEDS: PANTOprazole 40 MG TAB PO SCH (08:09)
[2022-01-12] MEDS: carvediloL 6.25 MG TAB PO SCH ×2 (08:09→20:13)
[2022-01-12] MEDS: dexAMETHasone 4 MG TAB PO SCH (08:10)
[2022-01-12] MEDS: METOCLOPRAMIDE HCL 5 MG TABLET PO SCH (08:10)
[2022-01-12] MEDS: DOCUSATE SODIUM/SENNA 50/8.6MG TAB PO SCH ×2 (08:10→20:14)
[2022-01-12] MEDS: FLUTICASONE/VILANTEROL 200/25MCG 14 PUFFS/INHALER INH SCH (08:11)
[2022-01-12] MEDS: CHECK CLONIDINE PATCH PLACEMENT SCH ×2 (08:11→17:47)
[2022-01-12] MEDS: NICOTINE 14 MG/24 HR PATCH TD SCH (08:11)
[2022-01-12] MEDS: LIDOCAINE 5% 1 PATCH TD SCH ×2 (08:11→11:22)
[2022-01-12] MEDS: CHECK fentaNYL PATCH PLACEMENT SCH ×2 (08:12→17:47)
[2022-01-12] MEDS: INSULIN ASPART PER UNIT SC SCH ×4 (09:13→20:54)
[2022-01-12] MEDS: LANTUS PER UNIT CHARGE SQ SCH ×2 (09:14→20:54)
--- NOTE | 2022-01-12 11:16 | Nephrology Progress Note ---
Date of Service January 12, 2022 Assessment & Plan Admission and Anticipated Discharge Date Admission Date: January 04, 2022 Subjective Assessment & Plan (1) ESRD (end stage renal disease) on dialysis: Plan: Dialysis later today. BP is high but he does have more edema than usual. So will try to take 3 kilo off in 3.5 hrs. continue lisinopril 40 mg,amlodipine, clonidine patch and coreg watching HR carefully Bp can be erratic also because of pain. Reviewed Palliative med note---Now on Rad Onc for pain relief. Still has lot of Pain from the fractures he has Subjective Still has lot of Pain chest and back. Short acting painmeds help him. BP seems better. has more edema than usual. had AVF surgery yesterday and Also evaluated by rad onc and palliative med. Review of Systems Review of Systems: All systems reviewed & are unremarkable except as noted in HPI & below Physical Exam Physical Exam: Eyes- anicteric Neck- no JVD Lungs- clear breath sounds bilaterally, no rales/wheezes Heart- normal rate, regular rhythm; no murmurs Abdomen- normal bowel sounds, nondistended, soft, nontender No CVA tenderness Extremities- 2+pretibial edema, no calf tenderness Neuro- alert, oriented x 3; no gross focal neurologic deficits Skin- warm & dr Results & Data ([facility]) Vital Signs (Past 12 Hours) Vital Signs Temp Pulse Pulse Pulse Resp BP Pulse Ox 01/12/22 09:00 01/12/22 09:00 76 01/12/22 07:37 36.8 C 85 20 177/102 H 94 01/12/22 03:00 37.0 C 75 18 156/83 H 99 O2 Del Method 01/12/22 09:00 Room Air 01/12/22 09:00 01/12/22 07:37 Room Air 01/12/22 03:00 Room Air
--- NOTE | 2022-01-12 12:38 | Pharmacy Report ---
Pharmacy Glycemic Short Note 2 - Date of Service January 12, 2022 - Glycemic Short BSG Results (Last 24 hours): 01/11/22 01/11/22 01/12/22 16:28 20:30 05:16 Glucose 214 H POC Glucose 231 H 143 H 01/12/22 01/12/22 01/12/22 06:42 07:13 11:09 Glucose POC Glucose 253 H 273 H 349 H* 01/12/22 11:10 Glucose POC Glucose 318 H* OUTPATIENT ANTIDIABETIC REGIMEN: * Lantus 7 units SC HS * Novolog ACHS (unknown dose, but prior visits listed as <30 units/day) * HbA1c: 9.1% (10/21/21) * However, this result is likely somewhat unreliable in ESRD patients d/t interactions between the A1c analyzing technique and high levels of urea in ESRD, reduced RBC life span, iron deficiency anemia, and EPO administration. HbA1c > 7.5% in ESRD patient may overestimate the extent of hyperglycemia in ESRD patients. ASSESSMENT: 01/12: * BSGs [phone]/dL the last 24h. Received 16 units of basal and 48 units of bolus insulin yesterday. * Continues on PO dex and tolerating diet. * Given elevated fasting this AM, scheduled Lantus 9 units BID today. Novolog tightened last evening to 30/9 and tightened again today with lunch to 25/. Will continue to closely monitor. 01/11: * BSGs extremely labile since initiation of steroids: [phone]/dL. Received 16 units of basal and 47 units of bolus insulin yesterday which is approximately 3X his normal overall daily requirement. * Continues on dexamethasone 4mg PO daily and tolerating diet. * Continue with Lantus sliding scale BID based upon BSG and titrate conservatively. Novolog tightened slightly to 30/10 to help with prandial BSG coverage. Will continue to monitor closely given tenuous glycemic status. 01/10: * 56 yo M w T1DM well known to pharmacy glycemic service admitted. Patient has historically labile BSGs while inpatient (hypo/hyperglycemia). * Complicated PMH includes ESRD, T1DM, and left Non-small cell lung cancer with mets to bone * Admitted 01/03 for hypertensive crisis. Palliative discussion on 01/08 - patient not yet ready to transition to hospice. Poor prognosis noted. Dexamethasone started. * BSG's were moderately well controlled for this patient (given history of labil e BSG's) earlier in admission, but pharmacy consulted for glycemic management on 01/10 2nd AM fasting BSG >400 mg/dL, likely precipitated by dexamethasone which started on 01/09 * No prior history of being on steroids, but known labile BSG's. Will attempt to maintain on basal/bolus, but patient may require temporary insulin drip while steroid effects on BSG's are determined/assessed. Will increase Lantus and tighten Novolog parameters. PLAN FOR INPATIENT GLYCEMIC CONTROL: * Basal insulin * Lantus 9 units SQ BID * Bolus insulin * NovoLog per scale ACHS or Q6hrs while NPO * Goal Range: Low 120 mg/dL - High 160 mg/dL * Correction Factor: 25 mg/dL/unit * Nutritional / Prandial insulin per carb ratio of 1 unit per 8 grams CHO c onsumed
--- NOTE | 2022-01-12 13:45 | Palliative Care Progress Note ---
Date of Service January 12, 2022 Assessment & Plan (1) Chest pain: Plan: with lung cancer and bone mets. Currently receiving palliative radiation. On decadron. He told me that he has had narcan on more than one occasion in the past. He is requesting increased dosing of pain medications. We discussed concern about opioid toxicity, particularly with his renal failure. He tells me that he was taking extra doses of dilaudid at home and didn't have any problem. I would not recommend increasing fentanyl because it is very long acting, should he have any issues with toxicity. Discussed with Dr. Pavon. Would be agreeable to occasional prn doses of IV hydromorphone if pain is not controlled with current medications. I explained to him that IV medication would not be an option when he is discharged. He understands this. (2) Palliative care encounter: Plan: Jeff is making plans for his and has been thinking that he does not want his family to see him when he's dying. I encouraged him to talk with family members about how they felt about that. He had been considering staying with his daughter but is concerned about his grandchildren seeing him . I expressed concern that he would need assistance at home. We revisited the code status discussion with his history of respiratory arrest. He is quite clear that he wants full resuscitation if needed. He would not want to be kept alive "on machines" indefinitely but would want to be kept alive until his family could come to say goodbye and then his sister, Tahira, would make decision to withdraw care. Discussed with case management. Admission and Anticipated Discharge Date Admission Date: January 04, 2022 Subjective Having severe pain, mostly in chest. Generally worse at night. Hydromorphone helps but only lasts for a couple hours. Review of Systems Review of Systems: ESAS Pain 3/3 Dyspnea 0/3 Drowsiness 0/3 Physical Exam Constitutional: no acute distress Respiratory: normal respiratory effort; no labored breathing Musculoskeletal: Extremities: + muscle atrophy Neurologic: awake; not confused Speech / Cognition: normal cognition Results & Data ([facility]) Vital Signs (Past 12 Hours) Vital Signs Temp Pulse Pulse Pulse Resp BP Pulse Ox 01/12/22 11:46 98.1 F 83 20 150/83 H 98 01/12/22 09:00 01/12/22 09:00 76 01/12/22 07:37 98.2 F 85 20 177/102 H 94 01/12/22 03:00 98.6 F 75 18 156/83 H 99 O2 Del Method 01/12/22 11:46 Room Air 01/12/22 09:00 Room Air 01/12/22 09:00 01/12/22 07:37 Room Air 01/12/22 03:00 Room Air PG Care Time/CCT Total # of Minutes Spent Total Time Spent: 43 Total Time Spent with Patient: Total time spent is greater than 50% in coordination of care (as documented) at patient's floor/unit and/or counseling patient:goals of care, code status, symptom management, coordination of care Coding Level of Care Code 95113 Subseq Hosp Care Lvl 3 Diagnoses Chest pain R07.9 Chest pain type: unspecified Palliative care encounter Z51.5 (1) Chest pain Chest pain type: unspecified Qualified Code(s): R07.9 - Chest pain, unspecified
--- NOTE | 2022-01-12 18:27 | Hospitalist Progress Note ---
Date of Service January 12, 2022 Assessment & Plan (1) Chest pain: Plan: Chest pain is atypical mostly due to ca mets CT chest 01/07/22 showed new bony lesions at T8, left 8th rib as well as T5-6, stable destructive lesion on left 9th rib, interval enlargement of left axillary node and stable Left upper pleural based mass Trop is normal. No ACS on EKG. Echo noted normal LV size with moderate concentric LVH without segmental wall motion abnormalities, EF of 55 to 60%. Continue carvedilol Continue po Dilaudid and fentanyl patch Lidocaine patch added for each shoulder History of COPD Metastatic NSCLC status post surgery, radiation/incomplete chemotherapy se condary to intolerance Patient not a candidate for additional treatment as per recent outpatient Oncology note (2) Primary cancer of left lung metastatic to other site: Plan: On 01/08/22, Previous hospitalist spoke with patient's Oncologist, Dr Lion Keith who stated no further treatment/chemo is recommended. Palliative on board Patient is not ready to transition to hospice, stated he has somethings to take care of before that. He understands prognosis is poor. Wants to continue full code for now until he is ready Radiation oncology on board S/P CT simulation for treatment planning to initiate radiation therapy Pt will go for radiation therapy today #2 Continue dexamethasone Palliative made referral to [facility] Palliative who will follow up with patient. Case discussed with Palliative that recommended not to increase the fentanyl patch due to risk of opioid toxicity on ESRD patient Low dose of IV Dialudid 0.5 IV prn q12h added (3) Hypertensive crisis: Plan: Presenting as headache and chest pain symptoms ?Hypertensive emergency Patient reports chronic intermittent generalized body pains for which he is on opioids (confirmed on PDMP) Concern for possible poor med adherence considering recurrent admissions; likely complicated by nausea/vomiting related to gastroparesis Continue lisinopril, clonidine Continue amlodipine and carvedilol started during this visit BP controlled (4) Wound of left foot: Plan: CT foot does not show any osteomyelitis Related to dropfoot brace which was quite tight Ortho eval appreciated Wound care while inpatient Reports he already made appt with a solid waste facility operator (5) Intractable nausea and vomiting: (6) Gastroparesis: Plan: History of IBD, gastroparesis status post gastric pacemaker, symptoms better after recent pacemaker adjustment Continue antiemetics prn (7) ESRD (end stage renal disease) on dialysis: Plan: Nephrology on board Schedule for HD on M/W/F S/P HD done today (8) DM type 1 (diabetes mellitus, type 1): Plan: Recent hemoglobin A1c of 9.1 last October 2021 BP elevated due to dexamethasone Continue Glargine and novolog sliding scale Pharmacy on board for glycemic management Continue monitor BS closely while on Dexamethasone Chronic anemia Worsening anemia. No obvious blood loss S/p 1 PRBC with HD on 01/05/22 Hb is 8.2 today stable Seizure disorder, stable on regimen DVT ppx will consider to resume subq heparin if hgb continues to be stable. continue heparin during HD Admission and Anticipated Discharge Date Admission Date: January 04, 2022 Subjective Pt was seen and examined for follow up pain Lying in bed with no acute distress talking in his cellphone Pt said that he continues to have a lot of pain he said that the IV Dilaudid dose helps in between with the pain Denies any SOB, nausea, palpitation and vomiting Review of Systems Review of Systems: All systems reviewed & are unremarkable except as noted in Subjective Physical Exam Physical Exam: General- No acute distress Head- atraumatic Eyes- PERRL, EOMI, ENT- oropharynx clear Neck- supple, no JVD Lungs- clear to auscultation, + chest wall tenderness Heart- regular rhythm; no murmur Abdomen- normal bowel sounds, soft, nontender Extremities- no calf tenderness, +left foot blister, +edema Neuro- alert, oriented x 3; PERRL, EOMI; no facial palsy; no dysarthria Skin- warm & dry Results & Data Results & Data ([facility]) Vital Signs (Past 12 Hours) Vital Signs Temp Pulse Pulse Pulse Resp BP BP 01/12/22 17:54 36.6 C 86 16 175/95 H 01/12/22 17:30 36.5 C 82 157/78 H 01/12/22 17:00 81 159/94 H 01/12/22 16:30 81 160/92 H 01/12/22 16:00 79 142/58 H 01/12/22 15:30 71 132/79 01/12/22 15:00 76 117/72 01/12/22 14:30 78 124/72 01/12/22 14:00 80 128/72 01/12/22 13:50 36.5 C 82 01/12/22 11:46 36.7 C 83 20 150/83 H 01/12/22 09:00 01/12/22 09:00 76 01/12/22 07:37 36.8 C 85 20 177/102 H Pulse Ox O2 Del Method 01/12/22 17:54 Room Air 01/12/22 17:30 01/12/22 17:00 01/12/22 16:30 01/12/22 16:00 01/12/22 15:30 01/12/22 15:00 01/12/22 14:30 01/12/22 14:00 01/12/22 13:50 01/12/22 11:46 98 Room Air 01/12/22 09:00 Room Air 01/12/22 09:00 01/12/22 07:37 94 Room Air (1) Chest pain Chest pain type: unspecified Qualified Code(s): R07.9 - Chest pain, unspecified
[2022-01-12] MEDS: amLODIPine BESYLATE 5 MG TAB PO SCH (20:11)
[2022-01-12] MEDS: OLANZAPINE 2.5 MG TAB PO SCH (20:11)
[2022-01-12 22:38] LABS: Hematocrit (blood only) 26.5 % (40.1-51.0); Hemoglobin 8.4 g/dl (14.0-18.0)
--- NOTE | 2022-01-12 22:44 | Communication Note ---
Date of Service: January 12, 2022 915 PM Patient complaining of left upper arm swelling and discoloration. Left anterior distal upper arm noted to be ecchymotic and edematous as per RN. Ap Left upper extremity swelling/ecchymosis hx Left Antecubital Basilic Vein Arteriovenous Fistula Creation (01/09) CT left humerus rule out hematoma 1035 PM Notified by RN of Dr. Mattson's (vascular surgeon) recommendations : 1. Arm elevation 2. Hold CT and do ultrasound if swelling gets worse. Will relay to AM provider.
[2022-01-13] MEDS: INSULIN ASPART PER UNIT SC SCH ×6 (00:31→20:12)
[2022-01-13] MEDS: CHECK fentaNYL PATCH PLACEMENT SCH ×4 (00:38→23:44)
[2022-01-13] MEDS: CHECK CLONIDINE PATCH PLACEMENT SCH ×4 (00:38→23:43)
[2022-01-13] MEDS: LORazepam 0.5 MG TAB PO PRN (00:38)
[2022-01-13] MEDS: HYDROmorphone HCL 2 MG TAB PO PRN ×6 (00:41→23:42)
[2022-01-13] MEDS: HYDROmorphone INJ 0.5 MG/0.5 ML SYR IV PRN (01:45)
[2022-01-13] MEDS: ACETAMINOPHEN 325 MG TAB PO SCH ×4 (03:04→20:07)
[2022-01-13 05:55] LABS: Hematocrit (blood only) 24.4 % (40.1-51.0); Hemoglobin 7.7 g/dl (14.0-18.0); Mean Corpuscular Hemoglobin 29.2 pg (25.0-34.0); Mean Corpuscular Hgb Conc 31.6 g/dL (32.0-36.0); Mean Corpuscular Volume 92.4 fL (80.0-100.0); Mean Platelet Volume 10.9 fL (9.4-12.4); Platelet Count 204 K/uL (130-400); RDW Coefficient of Variation 13.5 % (11.5-14.5); RDW Standard Deviation 46.1 fL (36.4-46.3); Red Blood Count 2.64 M/uL (4.63-6.08); White Blood Count 6.72 K/ul (4.8-10.8)
[2022-01-13 06:21] LABS: BUN Creatinine Ratio 8.7 (10-20); Calcium 7.6 mg/dl (8.5-10.1); Creatinine Clr Calc Pharmacy 17.6 ml/min; Est GFR (African American) 14.1 ml/min; Est GFR (Non-African American) 12.1 ml/min; Potassium 4.2 mmol/L (3.5-5.1)
[2022-01-13] MEDS: DOCUSATE SODIUM/SENNA 50/8.6MG TAB PO SCH ×2 (08:20→20:01)
[2022-01-13] MEDS: dexAMETHasone 4 MG TAB PO SCH (08:20)
[2022-01-13] MEDS: lisinopril 40 MG TAB PO SCH (08:20)
[2022-01-13] MEDS: NICOTINE 14 MG/24 HR PATCH TD SCH (08:20)
[2022-01-13] MEDS: LIDOCAINE 5% 1 PATCH TD SCH (08:21)
[2022-01-13] MEDS: carvediloL 6.25 MG TAB PO SCH ×2 (08:21→19:59)
[2022-01-13] MEDS: ADVANCED PROBIOTIC 1250 MG CAPSULE PO SCH (08:21)
[2022-01-13] MEDS: PANTOprazole 40 MG TAB PO SCH (08:21)
[2022-01-13] MEDS: levETIRAcetam 250 MG TAB PO SCH ×2 (08:21→20:00)
[2022-01-13] MEDS: GABAPENTIN 400 MG CAP PO SCH ×3 (08:21→20:01)
[2022-01-13] MEDS: METOCLOPRAMIDE HCL 5 MG TABLET PO SCH (08:21)
[2022-01-13] MEDS: FLUTICASONE/VILANTEROL 200/25MCG 14 PUFFS/INHALER INH SCH (08:22)
[2022-01-13] MEDS: fentaNYL 75 MCG/HR TDSY TD SCH (08:32)
[2022-01-13] MEDS: LANTUS PER UNIT CHARGE SQ SCH ×2 (09:02→20:11)
--- NOTE | 2022-01-13 16:09 | Hospitalist Progress Note ---
Date of Service January 13, 2022 Assessment & Plan (1) Chest pain: Plan: Chest pain is atypical mostly due to ca mets CT chest 01/07/22 showed new bony lesions at T8, left 8th rib as well as T5-6, stable destructive lesion on left 9th rib, interval enlargement of left axillary node and stable Left upper pleural based mass Trop is normal. No ACS on EKG. Echo noted normal LV size with moderate concentric LVH without segmental wall motion abnormalities, EF of 55 to 60%. Continue carvedilol Continue po Dilaudid and fentanyl patch Lidocaine patch added for each shoulder History of COPD Metastatic NSCLC status post surgery, radiation/incomplete chemotherapy s econdary to intolerance Patient not a candidate for additional treatment as per recent outpatient Oncology note (2) Primary cancer of left lung metastatic to other site: Plan: On 01/08/22, Previous hospitalist spoke with patient's Oncologist, Dr Lion Keith who stated no further treatment/chemo is recommended. Palliative on board Patient is not ready to transition to hospice, stated he has somethings to take care of before that. He understands prognosis is poor. Wants to continue full code for now until he is ready Radiation oncology on board S/P CT simulation for treatment planning to initiate radiation therapy Next radiation therapy on saturday Continue dexamethasone Palliative made referral to [facility] Palliative who will follow up with patient. Case discussed with Palliative that recommended not to increase the fentanyl patch due to risk of opioid toxicity on ESRD patient Low dose of IV Dialudid 0.5 IV prn q12h added (3) Hypertensive crisis: Plan: Presenting as headache and chest pain symptoms ?Hypertensive emergency Patient reports chronic intermittent generalized body pains for which he is on opioids (confirmed on PDMP) Concern for possible poor med adherence considering recurrent admissions; likely complicated by nausea/vomiting related to gastroparesis Continue lisinopril, clonidine Continue amlodipine and carvedilol started during this visit BP controlled (4) Wound of left foot: Plan: CT foot does not show any osteomyelitis Related to dropfoot brace which was quite tight Ortho eval appreciated Wound care while inpatient Reports he already made appt with a director of medical education LUE swelling and ecchymosis Pt said that swelling and ecchymosis improved. If worsening, will consider to get an u/s of LUE Continue monitor (5) Intractable nausea and vomiting: (6) Gastroparesis: Plan: History of IBD, gastroparesis status post gastric pacemaker, symptoms better after recent pacemaker adjustment Continue antiemetics prn (7) ESRD (end stage renal disease) on dialysis: Plan: Nephrology on board Schedule for HD on Next HD schedule for (8) DM type 1 (diabetes mellitus, type 1): Plan: Recent hemoglobin A1c of 9.1 last October 2021 BP elevated due to dexamethasone Continue Glargine and novolog sliding scale Pharmacy on board for glycemic management Continue monitor BS closely while on Dexamethasone Chronic anemia Worsening anemia. No obvious blood loss S/p 1 PRBC with HD on 01/05/22 Hbg is 7.7 today Will repeat H/H Seizure disorder, stable on regimen DVT ppx no heparin subq due to low hgb Admission and Anticipated Discharge Date Admission Date: January 04, 2022 Subjective Pt was seen and examined for follow up pain Lying in bed with no acute distress watching the [employer] game He said that his pain aliitle control with the extra dilaudid 0.5 q12h prn His left upper extremity is swelling and bruises around the Left Antecubital Basilic Vein Arteriovenous Fistula Creation He said the swelling and bruises in the LUE improves Denies any SOB, nausea, palpitation and vomiting Review of Systems Review of Systems: All systems reviewed & are unremarkable except as noted in Subjective Physical Exam Physical Exam: General- No acute distress Head- atraumatic Eyes- PERRL, EOMI, ENT- oropharynx clear Neck- supple, no JVD Lungs- clear to auscultation, + chest wall tenderness Heart- regular rhythm; no murmur Abdomen- normal bowel sounds, soft, nontender Extremities- no calf tenderness, +left foot blister, +edema b/l LE, LUE swelling and ecchymosis Neuro- alert, oriented x 3; PERRL, EOMI; no facial palsy; no dysarthria Skin- warm & dry Results & Data Results & Data ([facility]) Vital Signs (Past 12 Hours) Vital Signs Temp Pulse Pulse Resp BP Pulse Ox O2 Del Method 01/13/22 14:49 36.6 C 94 H 16 161/86 H 96 Room Air 01/13/22 08:00 80 01/13/22 08:00 Room Air 01/13/22 07:27 36.8 C 83 16 146/74 H 94 Room Air (1) Chest pain Chest pain type: unspecified Qualified Code(s): R07.9 - Chest pain, unspecified
[2022-01-13] MEDS: OLANZAPINE 2.5 MG TAB PO SCH (19:59)
[2022-01-13] MEDS: amLODIPine BESYLATE 5 MG TAB PO SCH (19:59)
[2022-01-13 20:07] LABS: Hematocrit (blood only) 28.7 % (40.1-51.0); Hemoglobin 8.9 g/dl (14.0-18.0)
[2022-01-14] MEDS: LORazepam 0.5 MG TAB PO PRN (00:22)
[2022-01-14] MEDS: HYDROmorphone INJ 0.5 MG/0.5 ML SYR IV PRN (00:22)
[2022-01-14] MEDS: HYDROmorphone HCL 2 MG TAB PO PRN ×7 (03:04→22:37)
[2022-01-14] MEDS: ACETAMINOPHEN 325 MG TAB PO SCH ×4 (04:11→20:32)
[2022-01-14] MEDS: GABAPENTIN 400 MG CAP PO SCH ×3 (04:45→20:32)
[2022-01-14] MEDS ORDERED: LANTUS PER UNIT CHARGE SQ SCH ×2 (09:00→21:00)
[2022-01-14] MEDS: CHECK CLONIDINE PATCH PLACEMENT SCH ×3 (09:20→23:22)
[2022-01-14] MEDS: CHECK fentaNYL PATCH PLACEMENT SCH ×3 (09:20→23:22)
[2022-01-14] MEDS: lisinopril 40 MG TAB PO SCH (09:21)
[2022-01-14] MEDS: carvediloL 6.25 MG TAB PO SCH ×2 (09:21→20:33)
[2022-01-14] MEDS: levETIRAcetam 250 MG TAB PO SCH ×2 (09:21→20:32)
[2022-01-14] MEDS: dexAMETHasone 4 MG TAB PO SCH (09:21)
[2022-01-14] MEDS: METOCLOPRAMIDE HCL 5 MG TABLET PO SCH (09:21)
[2022-01-14] MEDS: PANTOprazole 40 MG TAB PO SCH (09:21)
[2022-01-14] MEDS: DOCUSATE SODIUM/SENNA 50/8.6MG TAB PO SCH ×2 (09:21→20:33)
[2022-01-14] MEDS: ADVANCED PROBIOTIC 1250 MG CAPSULE PO SCH (09:21)
[2022-01-14] MEDS: NICOTINE 14 MG/24 HR PATCH TD SCH (09:22)
[2022-01-14] MEDS: LIDOCAINE 5% 1 PATCH TD SCH (09:23)
[2022-01-14] MEDS: FLUTICASONE/VILANTEROL 200/25MCG 14 PUFFS/INHALER INH SCH (09:29)
[2022-01-14] MEDS: INSULIN ASPART PER UNIT SC SCH ×4 (09:47→20:34)
--- NOTE | 2022-01-14 13:24 | Pharmacy Report ---
Pharmacy Glycemic Short Note 2 - Date of Service January 14, 2022 - Glycemic Short BSG Results (Last 24 hours): 01/13/22 01/13/22 01/13/22 16:38 16:38 16:39 POC Glucose 358 H* 184 H 171 H 01/13/22 01/14/22 01/14/22 19:59 07:24 07:25 POC Glucose 155 H 301 H* 285 H 01/14/22 11:24 POC Glucose 203 H OUTPATIENT ANTIDIABETIC REGIMEN: * Lantus 7 units SC HS * Novolog ACHS (unknown dose, but prior visits listed as <30 units/day) * HbA1c: 9.1% (10/21/21) * However, this result is likely somewhat unreliable in ESRD patients d/t interactions between the A1c analyzing technique and high levels of urea in ESRD, reduced RBC life span, iron deficiency anemia, and EPO administration. HbA1c > 7.5% in ESRD patient may overestimate the extent of hyperglycemia in ESRD patients. ASSESSMENT: 01/14: * BSGs continue to be elevated, improved throughout the day yesterday * Will continue current Novolog parameters * Steroid-induced hyperglycemia (continues on dexamethasone 4 mg PO daily) * Persistently elevated fasting BSGs, 285 mg/dL this morning - will continue to increase Lantus today * Patient will need significant reduction in insulin doses once steroids are discontinued 01/12: * BSGs [phone]/dL the last 24h. Received 16 units of basal and 48 units of bolus insulin yesterday. * Continues on PO dex and tolerating diet. * Given elevated fasting this AM, scheduled Lantus 9 units BID today. Novolog tightened last evening to 30/9 and tightened again today with lunch to 25/8. Will continue to closely monitor. 01/11: * BSGs extremely labile since initiation of steroids: [phone]/dL. Received 16 units of basal and 47 units of bolus insulin yesterday which is approximately 3X his normal overall daily requirement. * Continues on dexamethasone 4mg PO daily and tolerating diet. * Continue with Lantus sliding scale BID based upon BSG and titrate conservatively. Novolog tightened slightly to 30/10 to help with prandial BSG coverage. Will continue to monitor closely given tenuous glycemic status. 01/10: * 56 yo M w T1DM well known to pharmacy glycemic service admitted. Patient has historically labile BSGs while inpatient (hypo/hyperglycemia). * Complicated PMH includes ESRD, T1DM, and left Non-small cell lung cancer with mets to bone * Admitted 01/03 for hypertensive crisis. Palliative discussion on 01/08 - patient not yet ready to transition to hospice. Poor prognosis noted. Dexamethasone started. * BSG's were moderately well controlled for this patient (given history of labile BSG's) earlier in admission, but pharmacy consulted for glycemic management on 01/10 2nd AM fasting BSG >400 mg/dL, likely precipitated by dexamethasone which started on 01/09 * No prior history of being on steroids, but known labile BSG's. Will attempt to maintain on basal/bolus, but patient may require temporary insulin drip while steroid effects on BSG's are determined/assessed. Will increase Lantus and tighten Novolog parameters. PLAN FOR INPATIENT GLYCEMIC CONTROL: * Basal insulin * Lantus 12 units SC qAM * Lantus 10-12 units SC HS (see EHR for details) * Bolus insulin * NovoLog per scale ACHS or Q6hrs while NPO * Goal Range: Low 120 mg/dL - High 160 mg/dL * Correction Factor: 25 mg/dL/unit * Nutritional / Prandial insulin per carb ratio of 1 unit per 8 grams CHO co nsumed
--- NOTE | 2022-01-14 14:23 | Hospitalist Progress Note ---
Date of Service January 14, 2022 Assessment & Plan (1) Chest pain: Plan: Chest pain is atypical mostly due to ca mets CT chest 01/07/22 showed new bony lesions at T8, left 8th rib as well as T5-6, stable destructive lesion on left 9th rib, interval enlargement of left axillary node and stable Left upper pleural based mass Trop is normal. No ACS on EKG. Echo noted normal LV size with moderate concentric LVH without segmental wall motion abnormalities, EF of 55 to 60%. Continue carvedilol Continue po Dilaudid and fentanyl patch Lidocaine patch added for each shoulder History of COPD Metastatic NSCLC status post surgery, radiation/incomplete chemotherapy s econdary to intolerance Patient not a candidate for additional treatment as per recent outpatient Oncology note (2) Primary cancer of left lung metastatic to other site: Plan: On 01/08/22, Previous hospitalist spoke with patient's Oncologist, Dr Lion Keith who stated no further treatment/chemo is recommended. Palliative on board Patient is not ready to transition to hospice, stated he has somethings to take care of before that. He understands prognosis is poor. Wants to continue full code for now until he is ready Radiation oncology on board S/P CT simulation for treatment planning to initiate radiation therapy Next radiation therapy schedule for tomorrow Continue dexamethasone Palliative made referral to [facility] Palliative who will follow up with patient. Case discussed with Palliative that recommended not to increase the fentanyl patch due to risk of opioid toxicity on ESRD patient Low dose of IV Dialudid 0.5 IV prn q12h added (3) Hypertensive crisis: Plan: Presenting as headache and chest pain symptoms ?Hypertensive emergency Patient reports chronic intermittent generalized body pains for which he is on opioids (confirmed on PDMP) Concern for possible poor med adherence considering recurrent admissions; likely complicated by nausea/vomiting related to gastroparesis Continue lisinopril, clonidine Continue amlodipine and carvedilol started during this visit BP controlled (4) Wound of left foot: Plan: CT foot does not show any osteomyelitis Related to dropfoot brace which was quite tight Ortho eval appreciated Wound care while inpatient Reports he already made appt with a pecan mallow dipper LUE swelling and ecchymosis Pt said that swelling and ecchymosis improved. If worsening, will consider to get an u/s of LUE Continue monitor (5) Intractable nausea and vomiting: (6) Gastroparesis: Plan: History of IBD, gastroparesis status post gastric pacemaker, symptoms better after recent pacemaker adjustment Continue antiemetics prn (7) ESRD (end stage renal disease) on dialysis: Plan: Nephrology on board Schedule for HD on Next HD schedule for (8) DM type 1 (diabetes mellitus, type 1): Plan: Recent hemoglobin A1c of 9.1 last October 2021 BP elevated due to dexamethasone Continue Glargine and novolog sliding scale Pharmacy on board for glycemic management Continue monitor BS closely while on Dexamethasone Chronic anemia Worsening anemia. No obvious blood loss S/p 1 PRBC with HD on 01/05/22 Hbg is 8.9 today Continue monitor cbc Seizure disorder, stable on regimen DVT ppx no heparin subq due to low hgb Admission and Anticipated Discharge Date Admission Date: January 04, 2022 Subjective Pt was seen and examined for follow up pain Lying in bed with no acute distress Pt said last night he had excruciated pain Denies any SOB, nausea, palpitation and vomiting Review of Systems Review of Systems: All systems reviewed & are unremarkable except as noted in Subjective Physical Exam Physical Exam: General- No acute distress Head- atraumatic Eyes- PERRL, EOMI, ENT- oropharynx clear Neck- supple, no JVD Lungs- clear to auscultation, + chest wall tenderness Heart- regular rhythm; no murmur Abdomen- normal bowel sounds, soft, nontender Extremities- no calf tenderness, +left foot blister, +edema b/l LE, LUE swelling and ecchymosis Neuro- alert, oriented x 3; PERRL, EOMI; no facial palsy; no dysarthria Skin- warm & dry Results & Data Results & Data ([facility]) Vital Signs (Past 12 Hours) Vital Signs Temp Pulse Pulse Resp BP Pulse Ox O2 Del Method 01/14/22 11:56 36.6 C 83 14 123/61 96 Room Air 01/14/22 08:00 Room Air 01/14/22 08:04 36.6 C 83 14 160/86 H 96 Room Air 01/14/22 07:29 87 01/14/22 04:28 36.8 C 87 20 145/72 H 97 Room Air (1) Chest pain Chest pain type: unspecified Qualified Code(s): R07.9 - Chest pain, unspecified
[2022-01-14] MEDS: OLANZAPINE 2.5 MG TAB PO SCH (20:32)
[2022-01-14] MEDS: amLODIPine BESYLATE 5 MG TAB PO SCH (20:33)
[2022-01-15] MEDS: HYDROmorphone HCL 2 MG TAB PO PRN ×6 (01:30→21:20)
[2022-01-15] MEDS: LORazepam 0.5 MG TAB PO PRN (01:36)
[2022-01-15] MEDS: HYDROmorphone INJ 0.5 MG/0.5 ML SYR IV PRN (01:37)
[2022-01-15] MEDS: ACETAMINOPHEN 325 MG TAB PO SCH ×4 (04:30→21:05)
[2022-01-15 06:01] LABS: Hematocrit (blood only) 23.7 % (40.1-51.0); Hemoglobin 7.6 g/dl (14.0-18.0); Mean Corpuscular Hemoglobin 29.3 pg (25.0-34.0); Mean Corpuscular Hgb Conc 32.1 g/dL (32.0-36.0); Mean Corpuscular Volume 91.5 fL (80.0-100.0); Mean Platelet Volume 10.8 fL (9.4-12.4); Platelet Count 217 K/uL (130-400); RDW Coefficient of Variation 13.4 % (11.5-14.5); RDW Standard Deviation 44.9 fL (36.4-46.3); Red Blood Count 2.59 M/uL (4.63-6.08); White Blood Count 8.38 K/ul (4.8-10.8)
[2022-01-15 06:36] LABS: BUN Creatinine Ratio 13.6 (10-20); Calcium 7.6 mg/dl (8.5-10.1); Creatinine Clr Calc Pharmacy 13.4 ml/min; Est GFR (African American) 9.8 ml/min; Est GFR (Non-African American) 8.4 ml/min; Potassium 6.1 mmol/L (3.5-5.1)
[2022-01-15] MEDS ORDERED: STAT IV STA (06:44)
[2022-01-15] MEDS ORDERED: LANTUS PER UNIT CHARGE SQ SCH ×4 (06:50→21:00)
[2022-01-15] MEDS ORDERED: CALCIUM GLUCONATE 10% 1,000 MG in DEXTROSE 5% 50 ML IV ONE (06:55)
--- NOTE | 2022-01-15 07:17 | Communication Note ---
Date of Service: January 15, 2022 Notified by RN of serum potassium of 6.1 with a.m. blood work Patient for dialysis today as per RN. Hold lisinopril for now.
[2022-01-15] MEDS: CHECK fentaNYL PATCH PLACEMENT SCH ×2 (07:59→16:26)
[2022-01-15] MEDS: CHECK CLONIDINE PATCH PLACEMENT SCH ×2 (07:59→16:26)
[2022-01-15] MEDS: FLUTICASONE/VILANTEROL 200/25MCG 14 PUFFS/INHALER INH SCH (08:00)
[2022-01-15] MEDS: INSULIN ASPART PER UNIT SC SCH ×5 (08:06→21:04)
[2022-01-15] MEDS: dexAMETHasone 4 MG TAB PO SCH (08:06)
[2022-01-15] MEDS: levETIRAcetam 250 MG TAB PO SCH ×2 (08:07→21:07)
[2022-01-15] MEDS: NICOTINE 14 MG/24 HR PATCH TD SCH (08:07)
[2022-01-15] MEDS: ADVANCED PROBIOTIC 1250 MG CAPSULE PO SCH (08:07)
[2022-01-15] MEDS: DOCUSATE SODIUM/SENNA 50/8.6MG TAB PO SCH ×2 (08:07→21:07)
[2022-01-15] MEDS: METOCLOPRAMIDE HCL 5 MG TABLET PO SCH (08:07)
[2022-01-15] MEDS: PANTOprazole 40 MG TAB PO SCH (08:07)
[2022-01-15] MEDS: GABAPENTIN 400 MG CAP PO SCH ×3 (08:07→21:07)
[2022-01-15] MEDS: LIDOCAINE 5% 1 PATCH TD SCH (08:08)
[2022-01-15] MEDS ORDERED: SODIUM CHLORIDE 0.9% 1000ML 1,000 ML IV PRN (08:10)
[2022-01-15] MEDS ORDERED: HEPARIN SOD (PORCINE) 1000 UNIT/ML IV ONE (08:10)
--- NOTE | 2022-01-15 09:16 | Surgery Progress Note ---
Date of Service January 15, 2022 Assessment & Plan (1) ESRD (end stage renal disease) on dialysis: Plan: Pt almost a week s/p l AC basilic vein AVF creation. Good thrill/bruit. Local edema and ecchymosis not unexpected for this procedure. Will reeval in 3 weeks for maturation. If swelling worsens or large hematoma forms, please call. Admission and Anticipated Discharge Date Admission Date: January 04, 2022 Subjective 56 yo m with multiple medical problems, now 6 days s/p L AC basilic v AVF creation, seen in f/u today. Pt admits edema and ecchymosis to L arm, but states cannot tell if he has more pain, as he has significant chronic pain d/t metastatic ca. No other new ocmplaints. Review of Systems Review of Systems: All systems reviewed & are unremarkable except as noted in HPI & below Physical Exam Constitutional: WD/WN, vitals as above + ill appearing Cardiovascular: Vessels: radial pulses present Extremities: normal capillary refill, + vascular access device (R IJ permcath) and + AV fistula (L AC + thrill/bruit) Skin: + incision (L AC + local edema/ecchymosis) Results & Data ([facility]) Vital Signs (Past 12 Hours) Vital Signs Temp Pulse Pulse Pulse Resp BP BP 01/15/22 08:40 86 157/87 H 01/15/22 08:29 36.6 C 89 01/15/22 07:35 87 01/15/22 06:59 36.5 C 85 14 151/76 H 01/15/22 03:40 36.5 C 94 H 20 164/84 H 01/14/22 23:18 36.5 C 89 20 153/82 H 01/14/22 23:04 85 Pulse Ox O2 Del Method 01/15/22 08:40 01/15/22 08:29 01/15/22 07:35 01/15/22 06:59 95 Room Air 01/15/22 03:40 95 Room Air 01/14/22 23:18 96 Room Air 01/14/22 23:04
[2022-01-15] MEDS: HEPARIN SOD (PORCINE) 1000 UNIT/ML IV SCH ×3 (10:44→14:50)
[2022-01-15] MEDS: carvediloL 6.25 MG TAB PO SCH ×2 (12:48→21:06)
--- NOTE | 2022-01-15 13:36 | Pharmacy Report ---
Pharmacy Glycemic Short Note 2 - Date of Service January 15, 2022 - Glycemic Short BSG Results (Last 24 hours): 01/14/22 01/14/22 01/15/22 16:28 20:18 02:34 Glucose POC Glucose 179 H 125 H 208 H 01/15/22 01/15/22 01/15/22 05:34 07:04 07:27 Glucose 225 H POC Glucose 222 H 262 H 01/15/22 12:31 Glucose POC Glucose 118 H OUTPATIENT ANTIDIABETIC REGIMEN: * Lantus 7 units SC HS * Novolog ACHS (unknown dose, but prior visits listed as <30 units/day) * HbA1c: 9.1% (10/21/21) * However, this result is likely somewhat unreliable in ESRD patients d/t interactions between the A1c analyzing technique and high levels of urea in ESRD, reduced RBC life span, iron deficiency anemia, and EPO administration. HbA1c > 7.5% in ESRD patient may overestimate the extent of hyperglycemia in ESRD patients. ASSESSMENT: 01/15: * BSGs [phone]/dL. Fasting BSG elevated at 222mg/dL this AM. Received 22 units of basal and 47 units of Novolog yesterday. * Continues on dex 40mg PO daily, tolerating diet * Continue slow titration of Lantus - 12 units BID today. No change to Novolog parameters 01/14: * BSGs continue to be elevated, improved throughout the day yesterday * Will continue current Novolog parameters * Steroid-induced hyperglycemia (continues on dexamethasone 4 mg PO daily) * Persistently elevated fasting BSGs, 285 mg/dL this morning - will continue to increase Lantus today * Patient will need significant reduction in insulin doses once steroids are discontinued 01/12: * BSGs [phone]/dL the last 24h. Received 16 units of basal and 48 units of bolus insulin yesterday. * Continues on PO dex and tolerating diet. * Given elevated fasting this AM, scheduled Lantus 9 units BID today. Novolog tightened last evening to 30/ and tightened again today with lunch to /. Will continue to closely monitor. 01/11: * BSGs extremely labile since initiation of steroids: [phone]/dL. Received 16 units of basal and 47 units of bolus insulin yesterday which is approximately 3X his normal overall daily requirement. * Continues on dexamethasone 4mg PO daily and tolerating diet. * Continue with Lantus sliding scale BID based upon BSG and titrate cons ervatively. Novolog tightened slightly to 30/10 to help with prandial BSG coverage. Will continue to monitor closely given tenuous glycemic status. 01/10: * 56 yo M w T1DM well known to pharmacy glycemic service admitted. Patient has historically labile BSGs while inpatient (hypo/hyperglycemia). * Complicated PMH includes ESRD, T1DM, and left Non-small cell lung cancer with mets to bone * Admitted 01/03 for hypertensive crisis. Palliative discussion on 01/08 - patient not yet ready to transition to hospice. Poor prognosis noted. Dexamethasone started. * BSG's were moderately well controlled for this patient (given history of labile BSG's) earlier in admission, but pharmacy consulted for glycemic management on 01/10 2nd AM fasting BSG >400 mg/dL, likely precipitated by dexamethasone which started on 01/09 * No prior history of being on steroids, but known labile BSG's. Will attempt to maintain on basal/bolus, but patient may require temporary insulin drip while steroid effects on BSG's are determined/assessed. Will increase Lantus and tighten Novolog parameters. PLAN FOR INPATIENT GLYCEMIC CONTROL: * Basal insulin * Lantus 12 units SC BID * Bolus insulin * NovoLog per scale ACHS or Q6hrs while NPO * Goal Range: Low 120 mg/dL - High 160 mg/dL * Correction Factor: 25 mg/dL/unit * Nutritional / Prandial insulin per carb ratio of 1 unit per 7 grams CHO consumed
[2022-01-15] MEDS: DEXTROSE 50% 50 ML SYRINGE IV PRN (15:14)
--- NOTE | 2022-01-15 18:05 | Hospitalist Progress Note ---
Date of Service January 15, 2022 Assessment & Plan (1) Chest pain: Plan: Chest pain is atypical mostly due to ca mets CT chest 01/07/22 showed new bony lesions at T8, left 8th rib as well as T5-6, stable destructive lesion on left 9th rib, interval enlargement of left axillary node and stable Left upper pleural based mass Trop is normal. No ACS on EKG. Echo noted normal LV size with moderate concentric LVH without segmental wall motion abnormalities, EF of 55 to 60%. Continue carvedilol Continue po Dilaudid and fentanyl patch Lidocaine patch added for each shoulder History of COPD Metastatic NSCLC status post surgery, radiation/incomplete chemotherapy s econdary to intolerance Patient not a candidate for additional treatment as per recent outpatient Oncology note (2) Primary cancer of left lung metastatic to other site: Plan: On 01/08/22, Previous hospitalist spoke with patient's Oncologist, Dr Lion Keith who stated no further treatment/chemo is recommended. Palliative on board Patient is not ready to transition to hospice, stated he has somethings to take care of before that. He understands prognosis is poor. Wants to continue full code for now until he is ready Radiation oncology on board S/P CT simulation for treatment planning to initiate radiation therapy Next radiation therapy schedule for tomorrow Continue dexamethasone Palliative made referral to [facility] Palliative who will follow up with patient. Case discussed with Palliative that recommended not to increase the fentanyl patch due to risk of opioid toxicity on ESRD patient Low dose of IV Dialudid 0.5 IV prn q12h added (3) Hypertensive crisis: Plan: Presenting as headache and chest pain symptoms ?Hypertensive emergency Patient reports chronic intermittent generalized body pains for which he is on opioids (confirmed on PDMP) Concern for possible poor med adherence considering recurrent admissions; likely complicated by nausea/vomiting related to gastroparesis Continue lisinopril, clonidine Continue amlodipine and carvedilol started during this visit BP controlled (4) Wound of left foot: Plan: CT foot does not show any osteomyelitis Related to dropfoot brace which was quite tight Ortho eval appreciated Wound care while inpatient Reports he already made appt with a applications support specialist LUE swelling and ecchymosis Pt said that swelling and ecchymosis improved. If worsening, will consider to get an u/s of LUE Continue monitor (5) Intractable nausea and vomiting: (6) Gastroparesis: Plan: History of IBD, gastroparesis status post gastric pacemaker, symptoms better after recent pacemaker adjustment Continue antiemetics prn (7) ESRD (end stage renal disease) on dialysis: Plan: Nephrology on board Schedule for HD on he was dialysed today Next HD schedule for Saturday (8) DM type 1 (diabetes mellitus, type 1): Plan: Recent hemoglobin A1c of 9.1 last October 2021 He had an episode of hypoglycemia today Lantus discontinued Continue novolog sliding scale Pharmacy on board for glycemic management Continue monitor BS closely while on Dexamethasone Chronic anemia Worsening anemia. No obvious blood loss S/p 1 PRBC with HD on 01/05/22 Hbg is 7.6 today Continue monitor cbc Seizure disorder, stable on regimen DVT ppx no heparin subq due to low hgb Admission and Anticipated Discharge Date Admission Date: January 04, 2022 Subjective Pt was seen and examined for follow up pain Siting in bed with no acute distress Pt had HD and radiation done today His BS was 26 and he said that he did not have any symptoms Denies any SOB, nausea, palpitation and vomiting Review of Systems Review of Systems: All systems reviewed & are unremarkable except as noted in Subjective Physical Exam Physical Exam: General- No acute distress Head- atraumatic Eyes- PERRL, EOMI, ENT- oropharynx clear Neck- supple, no JVD Lungs- clear to auscultation, + chest wall tenderness Heart- regular rhythm; no murmur Abdomen- normal bowel sounds, soft, nontender Extremities- no calf tenderness, +left foot blister, +edema b/l LE, LUE swelling and ecchymosis Neuro- alert, oriented x 3; PERRL, EOMI; no facial palsy; no dysarthria Skin- warm & dry Results & Data Results & Data ([facility]) Vital Signs (Past 12 Hours) Vital Signs Temp Pulse Pulse Pulse Pulse Resp BP 01/15/22 15:23 01/15/22 15:10 36.8 C 91 H 12 01/15/22 14:03 01/15/22 12:32 36.9 C 96 H 16 01/15/22 12:21 37.0 C 89 01/15/22 11:30 89 151/82 H 01/15/22 12:00 71 120/75 01/15/22 11:00 91 H 135/75 01/15/22 07:45 01/15/22 10:30 87 132/84 01/15/22 10:00 85 135/82 01/15/22 09:30 87 144/80 H 01/15/22 09:00 87 135/78 01/15/22 08:40 86 157/87 H 01/15/22 08:29 36.6 C 89 01/15/22 07:35 87 01/15/22 06:59 36.5 C 85 14 BP Pulse Ox O2 Del Method 01/15/22 15:23 177/70 H 01/15/22 15:10 191/85 H 98 Room Air 01/15/22 14:03 Room Air 01/15/22 12:32 139/92 96 Room Air 01/15/22 12:21 136/80 01/15/22 11:30 01/15/22 12:00 01/15/22 11:00 01/15/22 07:45 Room Air 01/15/22 10:30 01/15/22 10:00 01/15/22 09:30 01/15/22 09:00 01/15/22 08:40 01/15/22 08:29 01/15/22 07:35 01/15/22 06:59 151/76 H 95 Room Air (1) Chest pain Chest pain type: unspecified Qualified Code(s): R07.9 - Chest pain, unspecified
--- NOTE | 2022-01-15 20:40 | Dialysis Progress Note ---
Date of Service January 15, 2022 Assessment & Plan (1) ESRD (end stage renal disease) on dialysis: Plan: tolerating HD today defer to primary for mgt of pain next HD on 01/17 or as needs dictate >>anemia worsened again after inexplicably improving late 01/13 > transfuse PRN; not an al candidate >woudl check hgb daily -recently placed AVF maturing appropirately per vascular Admission and Anticipated Discharge Date Admission Date: January 04, 2022 Subjective has XRT this pm; seen on dialysis at about 1040. run first d/t high k; c/o intr actable chest, R shoulder pain starting to improve w/ pain med he'd just had; no worse dyspnea; no cough; no bleeding that he can think of Review of Systems Review of Systems: All systems reviewed & are unremarkable except as noted in Subjective Physical Exam Constitutional: well developed, + ill appearing, cooperative and + lethargic; no acute distress Eyes: EOM intact bilaterally ENMT: Ears: no external ear abnormality Nose: no external nose abnormality Mouth: + dry oral mucous membranes Neck: no nuchal rigidity Respiratory: normal respiratory effort Auscultation: + diminished lung sounds Cardiovascular: Rate/Rhythm: regular rate and regular rhythm Extremities: no edema Gastrointestinal (Abdomen): Inspection/Auscultation: normal bowel sounds Percussion/Palpation: abdomen soft; abdomen nontender Musculoskeletal: Extremities: strength 5/5 throughout Skin: no rashes, warm and dry Neurologic: villarreal, fluent speech, no tremor Psychiatric: oriented x 3; lethargic but arouseable Results & Data ([facility]) Vital Signs (Past 12 Hours) Vital Signs Temp Pulse Pulse Pulse Pulse Resp BP 01/15/22 19:02 36.4 C L 91 H 20 01/15/22 15:23 01/15/22 15:10 36.8 C 91 H 12 01/15/22 14:03 01/15/22 12:32 36.9 C 96 H 16 01/15/22 12:21 37.0 C 89 01/15/22 11:30 89 151/82 H 01/15/22 12:00 71 120/75 01/15/22 11:00 91 H 135/75 01/15/22 10:30 87 132/84 01/15/22 10:00 85 135/82 01/15/22 09:30 87 144/80 H 01/15/22 09:00 87 135/78 01/15/22 08:40 86 157/87 H BP Pulse Ox O2 Del Method 01/15/22 19:02 194/105 H 96 Room Air 01/15/22 15:23 177/70 H 01/15/22 15:10 191/85 H 98 Room Air 01/15/22 14:03 Room Air 01/15/22 12:32 139/92 96 Room Air 01/15/22 12:21 136/80 01/15/22 11:30 01/15/22 12:00 01/15/22 11:00 01/15/22 10:30 01/15/22 10:00 01/15/22 09:30 01/15/22 09:00 01/15/22 08:40 Laboratory Results 01/15/22 05:34 01/15/22 05:34
[2022-01-15] MEDS: amLODIPine BESYLATE 5 MG TAB PO SCH (21:05)
[2022-01-15] MEDS: OLANZAPINE 2.5 MG TAB PO SCH (21:06)
[2022-01-16] MEDS: CHECK CLONIDINE PATCH PLACEMENT SCH ×3 (00:24→15:12)
[2022-01-16] MEDS: CHECK fentaNYL PATCH PLACEMENT SCH ×3 (00:25→15:12)
[2022-01-16] MEDS: HYDROmorphone HCL 2 MG TAB PO PRN ×7 (02:30→23:23)
[2022-01-16] MEDS: ACETAMINOPHEN 325 MG TAB PO SCH ×4 (03:28→20:48)
[2022-01-16] MEDS: LORazepam 0.5 MG TAB PO PRN (03:29)
[2022-01-16] MEDS: HYDROmorphone INJ 0.5 MG/0.5 ML SYR IV PRN (03:29)
[2022-01-16 06:13] LABS: Hematocrit (blood only) 25.2 % (40.1-51.0); Hemoglobin 7.9 g/dl (14.0-18.0); Mean Corpuscular Hgb Conc 31.3 g/dL (32.0-36.0); Mean Corpuscular Volume 92.6 fL (80.0-100.0); Mean Platelet Volume 10.3 fL (9.4-12.4); Platelet Count 217 K/uL (130-400); RDW Coefficient of Variation 13.6 % (11.5-14.5); RDW Standard Deviation 45.5 fL (36.4-46.3); Red Blood Count 2.72 M/uL (4.63-6.08); White Blood Count 10.21 K/ul (4.8-10.8)
[2022-01-16 06:55] LABS: BUN Creatinine Ratio 10.9 (10-20); Calcium 7.6 mg/dl (8.5-10.1); Creatinine Clr Calc Pharmacy 17.2 ml/min; Est GFR (African American) 13.1 ml/min; Est GFR (Non-African American) 11.3 ml/min; Potassium 5.9 mmol/L (3.5-5.1)
[2022-01-16] MEDS: INSULIN ASPART PER UNIT SC SCH ×4 (08:47→20:50)
[2022-01-16] MEDS: LANTUS PER UNIT CHARGE SQ SCH ×2 (08:47→20:49)
[2022-01-16] MEDS: fentaNYL 75 MCG/HR TDSY TD SCH (08:48)
[2022-01-16] MEDS: NICOTINE 14 MG/24 HR PATCH TD SCH (08:49)
[2022-01-16] MEDS: ADVANCED PROBIOTIC 1250 MG CAPSULE PO SCH (08:53)
[2022-01-16] MEDS: levETIRAcetam 250 MG TAB PO SCH ×2 (08:53→20:48)
[2022-01-16] MEDS: METOCLOPRAMIDE HCL 5 MG TABLET PO SCH (08:54)
[2022-01-16] MEDS: PANTOprazole 40 MG TAB PO SCH (08:54)
[2022-01-16] MEDS: GABAPENTIN 400 MG CAP PO SCH ×3 (08:54→21:23)
[2022-01-16] MEDS: carvediloL 6.25 MG TAB PO SCH ×2 (08:54→20:48)
[2022-01-16] MEDS: dexAMETHasone 4 MG TAB PO SCH (08:54)
[2022-01-16] MEDS: DOCUSATE SODIUM/SENNA 50/8.6MG TAB PO SCH ×2 (08:55→20:48)
[2022-01-16] MEDS: LIDOCAINE 5% 1 PATCH TD SCH (08:55)
[2022-01-16] MEDS: FLUTICASONE/VILANTEROL 200/25MCG 14 PUFFS/INHALER INH SCH (08:55)
[2022-01-16] MEDS ORDERED: HEPARIN SOD (PORCINE) 1000 UNIT/ML IV ONE (09:10)
[2022-01-16] MEDS ORDERED: SODIUM CHLORIDE 0.9% 1000ML 1,000 ML IV PRN (09:10)
[2022-01-16] MEDS: HEPARIN SOD (PORCINE) 1000 UNIT/ML IV SCH ×2 (10:59→13:59)
--- NOTE | 2022-01-16 14:14 | Pharmacy Report ---
Pharmacy Glycemic Short Note 2 - Date of Service January 16, 2022 - Glycemic Short BSG Results (Last 24 hours): 01/15/22 01/15/22 01/15/22 15:07 15:08 15:22 Glucose POC Glucose 26 L* 28 L* 144 H 01/15/22 01/15/22 01/16/22 16:26 20:25 06:02 Glucose 333 H* POC Glucose 81 175 H 01/16/22 01/16/22 01/16/22 07:28 07:30 12:58 Glucose POC Glucose 315 H* 380 H* 168 H OUTPATIENT ANTIDIABETIC REGIMEN: * Lantus 7 units SC HS * Novolog ACHS (unknown dose, but prior visits listed as <30 units/day) * HbA1c: 9.1% (10/21/21) * However, this result is likely somewhat unreliable in ESRD patients d/t interactions between the A1c analyzing technique and high levels of urea in ESRD, reduced RBC life span, iron deficiency anemia, and EPO administration. HbA1c > 7.5% in ESRD patient may overestimate the extent of hyperglycemia in ESRD patients. ASSESSMENT: 01/16: * BSGs [id number]/dL the last 24h. Patient had a hypoglycemic event yesterday and received D50%. Fasting this AM was elevated to 315mg/dL. Received 17 units of basal yesterday in response to low, and 25 units of bolus. * Tolerating diet (noted to be snacking), dexamethasone 4mg PO continues. * Lantus decreased to 11 units BID starting today. Novolog loosened to 25/8 with a max dose of 13 units. Will continue to monitor closely; likely will not be able to achieve good control given labile BSGs and snacking. Will continue with more conservative insulin dosing with focus to prevent hypoglycemia. 01/15: * BSGs 203-674-525-118mg/dL. Fasting BSG elevated at 222mg/dL this AM. Received 22 units of basal and 47 units of Novolog yesterday. * Continues on dex 40mg PO daily, tolerating diet * Continue slow titration of Lantus - 12 units BID today. No change to Novolog parameters 01/14: * BSGs continue to be elevated, improved throughout the day yesterday * Will continue current Novolog parameters * Steroid-induced hyperglycemia (continues on dexamethasone 4 mg PO daily) * Persistently elevated fasting BSGs, 285 mg/dL this morning - will continue to increase Lantus today * Patient will need significant reduction in insulin doses once steroids are discontinued 01/12: * BSGs 564-476-325-253-318mg/dL the last 24h. Received 16 units of basal and 48 units of bolus insulin yesterday. * Continues on PO dex and tolerating diet. * Given elevated fasting this AM, scheduled Lantus 9 units BID today. Novolog tightened last evening to 02/02 and tightened again today with lunch to 28/12. Will continue to closely monitor. 01/11: * BSGs extremely labile since initiation of steroids: 850-624-256-264-233mg/dL. Received 16 units of basal and 47 units of bolus insulin yesterday which is approximately 3X his normal overall daily requirement. * Continues on dexamethasone 4mg PO daily and tolerating diet. * Continue with Lantus sliding scale BID based upon BSG and titrate conservatively. Novolog tightened slightly to 30/ to help with prandial BSG coverage. Will continue to monitor closely given tenuous glycemic status. 01/10: * 56 yo M w T1DM well known to pharmacy glycemic service admitted. Patient has historically labile BSGs while inpatient (hypo/hyperglycemia). * Complicated PMH includes ESRD, T1DM, and left Non-small cell lung cancer with mets to bone * Admitted 01/03 for hypertensive crisis. Palliative discussion on 01/08 - patient not yet ready to transition to hospice. Poor prognosis noted. Dexamethasone started. * BSG's were moderately well controlled for this patient (given history of labile BSG's) earlier in admission, but pharmacy consulted for glycemic management on 01/10 2nd AM fasting BSG >400 mg/dL, likely precipitated by dexamethasone which started on 01/09 * No prior history of being on steroids, but known labile BSG's. Will attempt to maintain on basal/bolus, but patient may require temporary insulin drip while steroid effects on BSG's are determined/assessed. Will increase Lantus and tighten Novolog parameters. PLAN FOR INPATIENT GLYCEMIC CONTROL: * Basal insulin * Lantus 11 units SC BID * Bolus insulin * NovoLog per scale ACHS or Q6hrs while NPO * Goal Range: Low 120 mg/dL - High 160 mg/dL * Correction Factor: 25 mg/dL/unit * Nutritional / Prandial insulin per carb ratio of 1 unit per 8 grams CHO consumed (max 13 units)
--- NOTE | 2022-01-16 14:17 | Hospitalist Progress Note ---
Date of Service January 16, 2022 Assessment & Plan (1) Chest pain: Plan: (1) Chest pain: Chest pain is atypical mostly due to ca mets CT chest 01/07/22 showed new bony lesions at T8, left 8th rib as well as T5-6, stable destructive lesion on left 9th rib, interval enlargement of left axillary node and stable Left upper pleural based mass Trop is normal. No ACS on EKG. Echo noted normal LV size with moderate concentric LVH without segmental wall motion abnormalities, EF of 55 to 60%. Continue carvedilol Continue po Dilaudid and fentanyl patch Lidocaine patch added for each shoulder History of COPD Metastatic NSCLC status post surgery, radiation/incomplete chemotherapy secondary to intolerance Patient not a candidate for additional treatment as per recent outpatient Oncology note (2) Primary cancer of left lung metastatic to other site: On 01/08/22, Previous hospitalist spoke with patient's Oncologist, Dr Lion Keith who stated no further treatment/chemo is recommended. Palliative on board Patient is not ready to transition to hospice, stated he has somethings to take care of before that. He understands prognosis is poor. Wants to continue full code for now until he is ready Radiation oncology on board S/P CT simulation for treatment planning to initiate radiation therapy Next radiation therapy schedule for tomorrow Continue dexamethasone Palliative made referral to [facility] Palliative who will follow up with patient. Case discussed with Palliative that recommended not to increase the fentanyl patch due to risk of opioid toxicity on ESRD patient Continue Low dose of IV Dialudid 0.5 IV prn q12h while inpatient (3) Hypertensive crisis: Presenting as headache and chest pain symptoms ?Hypertensive emergency Patient reports chronic intermittent generalized body pains for which he is on opioids (confirmed on PDMP) Concern for possible poor med adherence considering recurrent admissions; likely complicated by nausea/vomiting related to gastroparesis Continue lisinopril, clonidine Continue amlodipine and carvedilol started during this visit BP controlled (4) Wound of left foot: CT foot does not show any osteomyelitis Related to dropfoot brace which was quite tight Ortho eval appreciated Wound care while inpatient Reports he already made appt with a senior technical specialist LUE swelling and ecchymosis Pt said that swelling and ecchymosis improved. If worsening, will consider to get an u/s of LUE Clinically improved significantly (5) Intractable nausea and vomiting: (6) Gastroparesis: History of IBD, gastroparesis status post gastric pacemaker, symptoms better after recent pacemaker adjustment Continue antiemetics prn Hyperkalemia Mostly due to ESRD Potassium 5.9 today Case discussed with nephrology Pt had a 2 HR HD today- next HD tomorrow Continue monitor BMP (7) ESRD (end stage renal disease) on dialysis: Nephrology on board Schedule for HD on // Pt had 2hr HD today Next HD schedule for Saturday (8) DM type 1 (diabetes mellitus, type 1): Recent hemoglobin A1c of 9.1 last October 2021 He had an episode of hypoglycemia today Currently on Lantus and novolog sliding scale Pharmacy on board for glycemic management Continue monitor BS closely while on Dexamethasone Chronic anemia Worsening anemia. No obvious blood loss S/p 1 PRBC with HD on 01/05/22 Hbg is 7.9 today Continue monitor cbc Seizure disorder, stable on regimen DVT ppx no heparin subq due to low hgb Admission and Anticipated Discharge Date Admission Date: January 04, 2022 Subjective Pt was seen and examined for follow up pain and hyperkalemia Siting in bed with no acute distress He said that he continues to have pain His potassium is high today, plan for short episode of HD today Denies any SOB, nausea, palpitation and vomiting Review of Systems Review of Systems: All systems reviewed & are unremarkable except as noted in Subjective Physical Exam Physical Exam: General- No acute distress Head- atraumatic Eyes- PERRL, EOMI, ENT- oropharynx clear Neck- supple, no JVD Lungs- clear to auscultation, + chest wall tenderness Heart- regular rhythm; no murmur Abdomen- normal bowel sounds, soft, nontender Extremities- no calf tenderness, +left foot blister, +edema b/l LE, LUE swelling and ecchymosis Neuro- alert, oriented x 3; PERRL, EOMI; no facial palsy; no dysarthria Skin- warm & dry Results & Data Results & Data ([facility]) Vital Signs (Past 12 Hours) Vital Signs Temp Pulse Pulse Pulse Resp BP BP 01/16/22 12:55 36.7 C 88 148/81 H 01/16/22 12:30 86 130/79 01/16/22 12:00 85 109/63 01/16/22 11:30 85 115/68 01/16/22 11:00 87 116/66 01/16/22 10:39 36.7 C 61 01/16/22 08:00 92 H 01/16/22 08:00 01/16/22 08:55 36.7 C 96 H 18 149/98 H 01/16/22 03:00 36.7 C 93 H 20 195/103 H Pulse Ox O2 Del Method 01/16/22 12:55 01/16/22 12:30 01/16/22 12:00 01/16/22 11:30 01/16/22 11:00 01/16/22 10:39 01/16/22 08:00 01/16/22 08:00 Room Air 01/16/22 08:55 95 Room Air 01/16/22 03:00 96 Room Air (1) Chest pain Chest pain type: unspecified Qualified Code(s): R07.9 - Chest pain, unspecified
--- NOTE | 2022-01-16 18:39 | Dialysis Progress Note ---
Date of Service January 16, 2022 Assessment & Plan (1) ESRD (end stage renal disease) on dialysis: Plan: tolerating HD today; has been having issues w/ recurrent hyperkalemia defer to primary for mgt of pain next HD on 01/17 or as needs dictate >>anemia worsened again after inexplicably improving late 01/13 > transfuse PRN; not an al candidate >would check hgb, bmp daily -recently placed AVF maturing appropirately per vascular Admission and Anticipated Discharge Date Admission Date: January 04, 2022 Subjective seen on dialysis today. ongoing pain. knows his dying time is coming - working on this w/ friends, family. no sob, no n/v; c/o edema; AVF numb Review of Systems Review of Systems: All systems reviewed & are unremarkable except as noted in Subjective Physical Exam Constitutional: well developed, + ill appearing and cooperative; no acute distress Eyes: EOM intact bilaterally ENMT: Ears: no external ear abnormality Nose: no external nose abnormality Mouth: + dry oral mucous membranes Neck: no nuchal rigidity Respiratory: normal respiratory effort Auscultation: + diminished lung sounds Cardiovascular: Rate/Rhythm: regular rate and regular rhythm Extremities: no edema Gastrointestinal (Abdomen): Inspection/Auscultation: normal bowel sounds Percussion/Palpation: abdomen soft; abdomen nontender Musculoskeletal: Extremities: strength 5/5 throughout Skin: no rashes, warm and dry Neurologic: villarreal, fluent speech, no tremor Results & Data ([facility]) Vital Signs (Past 12 Hours) Vital Signs Temp Pulse Pulse Pulse Resp BP BP 01/16/22 17:15 93 H 01/16/22 16:26 36.7 C 85 18 143/83 H 01/16/22 12:55 36.7 C 88 148/81 H 01/16/22 12:30 86 130/79 01/16/22 12:00 85 109/63 01/16/22 11:30 85 115/68 01/16/22 11:00 87 116/66 01/16/22 10:39 36.7 C 61 01/16/22 08:00 92 H 01/16/22 08:00 01/16/22 08:55 36.7 C 96 H 18 149/98 H Pulse Ox O2 Del Method 01/16/22 17:15 09/13/22 16:26 94 Room Air 01/16/22 12:55 01/16/22 12:30 01/16/22 12:00 01/16/22 11:30 01/16/22 11:00 01/16/22 10:39 01/16/22 08:00 01/16/22 08:00 Room Air 01/16/22 08:55 95 Room Air Laboratory Results reviewed
[2022-01-16] MEDS: OLANZAPINE 2.5 MG TAB PO SCH (20:48)
[2022-01-16] MEDS: amLODIPine BESYLATE 5 MG TAB PO SCH (20:48)
[2022-01-17] MEDS: LORazepam 0.5 MG TAB PO PRN (00:01)
[2022-01-17] MEDS: HYDROmorphone INJ 0.5 MG/0.5 ML SYR IV PRN ×2 (00:01→13:51)
[2022-01-17] MEDS: HYDROmorphone HCL 2 MG TAB PO PRN ×6 (01:58→20:54)
[2022-01-17] MEDS: ACETAMINOPHEN 325 MG TAB PO SCH ×4 (03:36→20:41)
[2022-01-17] MEDS ORDERED: BENZONATATE 100 MG CAPSULE PO PRN (06:20)
[2022-01-17] MEDS ORDERED: COUGH DROP (SUGAR FREE) LOZ 24 LOZ/1 BOX BUCCAL PRN (06:20)
[2022-01-17] MEDS ORDERED: COUGH DROP (SUGAR FREE) LOZ 24 LOZ/1 BOX BUCCAL ONE (06:23)
[2022-01-17 06:40] LABS: Hematocrit (blood only) 24.8 % (40.1-51.0); Hemoglobin 7.6 g/dl (14.0-18.0); Mean Corpuscular Hemoglobin 28.9 pg (25.0-34.0); Mean Corpuscular Hgb Conc 30.6 g/dL (32.0-36.0); Mean Corpuscular Volume 94.3 fL (80.0-100.0); Mean Platelet Volume 10.9 fL (9.4-12.4); Platelet Count 222 K/uL (130-400); RDW Standard Deviation 47.7 fL (36.4-46.3); Red Blood Count 2.63 M/uL (4.63-6.08); White Blood Count 9.44 K/ul (4.8-10.8)
[2022-01-17] MEDS ORDERED: SODIUM CHLORIDE 0.9% 1000ML 1,000 ML IV PRN (06:44)
[2022-01-17] MEDS ORDERED: HEPARIN SOD (PORCINE) 1000 UNIT/ML IV ONE (06:44)
[2022-01-17 07:03] LABS: BUN Creatinine Ratio 10.4 (10-20); Calcium 7.5 mg/dl (8.5-10.1); Creatinine Clr Calc Pharmacy 17.2 ml/min; Est GFR (African American) 13.3 ml/min; Est GFR (Non-African American) 11.5 ml/min; Potassium 5.6 mmol/L (3.5-5.1)
[2022-01-17] MEDS: INSULIN ASPART PER UNIT SC SCH ×4 (07:56→20:46)
[2022-01-17] MEDS: guaiFENesin 600 MG TABCR PO SCH ×2 (07:56→20:41)
[2022-01-17] MEDS: CHECK CLONIDINE PATCH PLACEMENT SCH ×3 (07:57→15:20)
[2022-01-17] MEDS: CHECK fentaNYL PATCH PLACEMENT SCH ×3 (07:58→15:21)
[2022-01-17] MEDS: dexAMETHasone 1 MG TAB PO SCH (08:00)
[2022-01-17] MEDS: METOCLOPRAMIDE HCL 5 MG TABLET PO SCH (08:00)
[2022-01-17] MEDS: PANTOprazole 40 MG TAB PO SCH (08:00)
[2022-01-17] MEDS: ADVANCED PROBIOTIC 1250 MG CAPSULE PO SCH (08:01)
[2022-01-17] MEDS: LANTUS PER UNIT CHARGE SQ SCH ×2 (08:02→20:45)
[2022-01-17] MEDS: DOCUSATE SODIUM/SENNA 50/8.6MG TAB PO SCH ×2 (08:03→20:41)
[2022-01-17] MEDS: levETIRAcetam 250 MG TAB PO SCH ×2 (08:03→20:42)
[2022-01-17] MEDS: NICOTINE 14 MG/24 HR PATCH TD SCH (08:03)
[2022-01-17] MEDS: LIDOCAINE 5% 1 PATCH TD SCH (08:04)
[2022-01-17] MEDS: FLUTICASONE/VILANTEROL 200/25MCG 14 PUFFS/INHALER INH SCH (08:04)
[2022-01-17] MEDS: carvediloL 6.25 MG TAB PO SCH ×2 (08:47→20:42)
[2022-01-17] MEDS: GABAPENTIN 400 MG CAP PO SCH ×3 (08:47→20:41)
[2022-01-17] MEDS: HEPARIN SOD (PORCINE) 1000 UNIT/ML IV SCH ×3 (09:42→11:36)
--- NOTE | 2022-01-17 12:52 | Pharmacy Report ---
Pharmacy Glycemic Short Note 2 - Date of Service January 17, 2022 - Glycemic Short BSG Results (Last 24 hours): 01/16/22 01/16/22 01/16/22 12:58 16:24 20:24 Glucose POC Glucose 168 H 196 H 113 H 01/17/22 01/17/22 01/17/22 02:04 03:39 06:09 Glucose 201 H POC Glucose 223 H 238 H 01/17/22 01/17/22 07:03 12:40 Glucose POC Glucose 191 H 139 H OUTPATIENT ANTIDIABETIC REGIMEN: * Lantus 7 units SC HS * Novolog ACHS (unknown dose, but prior visits listed as <30 units/day) * HbA1c: 9.1% (10/21/21) * However, this result is likely somewhat unreliable in ESRD patients d/t interactions between the A1c analyzing technique and high levels of urea in ESRD, reduced RBC life span, iron deficiency anemia, and EPO administration. HbA1c > 7.5% in ESRD patient may overestimate the extent of hyperglycemia in ESRD patients. ASSESSMENT: 01/17: * BSGs acceptable the last 24h: [phone]/dL. Fasting 191mg/dL this AM. Received 22 units of basal and 27 units of bolus insulin yesterday. * Tolerating diet, dexamethasone dose decreased to 2mg daily starting today. * Will empirically reduce both Lantus and Novolog given reduction in steroid. Lantus 6 units BID (~50% reduction). Novolog parameters loosened to 30/9. May need further reduction pending response. Monitor closely. 01/16: * BSGs 53-63-473-375-168mg/dL the last 24h. Patient had a hypoglycemic event yesterday and received D50%. Fasting this AM was elevated to 315mg/dL. Received 17 units of basal yesterday in response to low, and 25 units of bolus. * Tolerating diet (noted to be snacking), dexamethasone 4mg PO continues. * Lantus decreased to 11 units BID starting today. Novolog loosened to 25/8 with a max dose of 13 units. Will continue to monitor closely; likely will not be able to achieve good control given labile BSGs and snacking. Will continue with more conservative insulin dosing with focus to prevent hypoglycemia. 01/15: * BSGs [phone]/dL. Fasting BSG elevated at 222mg/dL this AM. Received 22 units of basal and 47 units of Novolog yesterday. * Continues on dex 40mg PO daily, tolerating diet * Continue slow titration of Lantus - 12 units BID today. No change to Novolog parameters 01/14: * BSGs continue to be elevated, improved throughout the day yesterday * Will continue current Novolog parameters * Steroid-induced hyperglycemia (continues on dexamethasone 4 mg PO daily) * Persistently elevated fasting BSGs, 285 mg/dL this morning - will continue to increase Lantus today * Patient will need significant reduction in insulin doses once steroids are discontinued 01/12: * BSGs [phone]/dL the last 24h. Received 16 units of basal and 48 units of bolus insulin yesterday. * Continues on PO dex and tolerating diet. * Given elevated fasting this AM, scheduled Lantus 9 units BID today. Novolog tightened last evening to 30/9 and tightened again today with lunch to 25/8. Will continue to closely monitor. 01/11: * BSGs extremely labile since initiation of steroids: [phone]/dL. Received 16 units of basal and 47 units of bolus insulin yesterday which is approximately 3X his normal overall daily requirement. * Continues on dexamethasone 4mg PO daily and tolerating diet. * Continue with Lantus sliding scale BID based upon BSG and titrate conservatively. Novolog tightened slightly to 30/10 to help with prandial BSG coverage. Will continue to monitor closely given tenuous glycemic status. 01/10: * 56 yo M w T1DM well known to pharmacy glycemic service admitted. Patient has historically labile BSGs while inpatient (hypo/hyperglycemia). * Complicated PMH includes ESRD, T1DM, and left Non-small cell lung cancer with mets to bone * Admitted 01/03 for hypertensive crisis. Palliative discussion on 01/08 - patient not yet ready to transition to hospice. Poor prognosis noted. Dexamethasone started. * BSG's were moderately well controlled for this patient (given history of labile BSG's) earlier in admission, but pharmacy consulted for glycemic management on 01/10 2nd AM fasting BSG >400 mg/dL, likely precipitated by dexamethasone which started on 01/09 * No prior history of being on steroids, but known labile BSG's. Will attempt to maintain on basal/bolus, but patient may require temporary insulin drip while steroid effects on BSG's are determined/assessed. Will increase Lantus and tighten Novolog parameters. PLAN FOR INPATIENT GLYCEMIC CONTROL: * Basal insulin * Lantus 6 units SC BID * Bolus insulin * NovoLog per scale ACHS or Q6hrs while NPO * Goal Range: Low 120 mg/dL - High 160 mg/dL * Correction Factor: 30 mg/dL/unit * Nutritional / Prandial insulin per carb ratio of 1 unit per 9 grams CHO consumed (max 13 units)
[2022-01-17] MEDS ORDERED: HYDROmorphone HCL 2 MG TAB PO PRN (14:56)
[2022-01-17] MEDS ORDERED: fentaNYL 100 MCG/HR TDSY TD SCH ×2 (15:15→18:00)
--- NOTE | 2022-01-17 15:15 | Hospitalist Progress Note ---
Date of Service January 17, 2022 Assessment & Plan (1) Chest pain: Plan: (1) Chest pain: Secondary to carcinoma of the lung Chest pain is atypical mostly due to metastatic disease CT chest 01/07/22 showed new bony lesions at T8, left 8th rib as well as T5-6, stable destructive lesion on left 9th rib, interval enlargement of left axillary node and stable Left upper pleural based mass Trop is normal. No ACS on EKG. Echo noted normal LV size with moderate concentric LVH without segmental wall motion abnormalities, EF of 55 to 60%. Continue carvedilol Continue po Dilaudid and fentanyl patch Lidocaine patch added for each shoulder Pain has been increasing Will increase fentanyl patch 100 mcg and will keep Dilaudid as it is History of COPD Metastatic NSCLC status post surgery, radiation/incomplete chemotherapy secondary to intolerance Patient not a candidate for additional treatment as per recent outpatient Oncology note No acute shortness of breath and or wheezing (2) Primary cancer of left lung metastatic to other site: On 01/08/22, Previous hospitalist spoke with patient's Oncologist, Dr Lion Keith who stated no further treatment/chemo is recommended. Palliative on board Patient is not ready to transition to hospice, stated he has somethings to take care of before that. He understands prognosis is poor. Wants to continue full code for now until he is ready Radiation oncology on board S/P CT simulation for treatment planning to initiate radiation therapy Next radiation therapy schedule for tomorrow Continue dexamethasone-to milligram from 01/17/2022 for 1 week and then 1 mg for next week Palliative made referral to [facility] Palliative who will follow up with patient. Case discussed with Palliative that recommended not to increase the fentanyl patch due to risk of opioid toxicity on ESRD patient Continue Low dose of IV Dialudid 0.5 IV prn q12h while inpatient Will increase fentanyl patch 100 micrograms every 3 days (3) Hypertensive crisis: Presenting as headache and chest pain symptoms ?Hypertensive emergency Patient reports chronic intermittent generalized body pains for which he is on opioids (confirmed on PDMP) Concern for possible poor med adherence considering recurrent admissions; likely complicated by nausea/vomiting related to gastroparesis Continue lisinopril, clonidine Continue amlodipine and carvedilol started during this visit BP controlled (4) Wound of left foot: CT foot does not show any osteomyelitis Related to dropfoot brace which was quite tight Ortho eval appreciated Wound care while inpatient Reports he already made appt with a formula checker NAKULE swelling and ecchymosis Pt said that swelling and ecchymosis improved. If worsening, will consider to get an u/s of LUE Clinically improved significantly (5) Intractable nausea and vomiting: (6) Gastroparesis: History of IBD, gastroparesis status post gastric pacemaker, symptoms better after recent pacemaker adjustment Continue antiemetics prn Hyperkalemia Mostly due to ESRD Potassium 5.9 today Case discussed with nephrology Pt had a 2 HR HD today- next HD tomorrow Continue monitor BMP (7) ESRD (end stage renal disease) on dialysis: Nephrology on board Schedule for HD on Pt had 2hr HD today Next HD schedule for Saturday (8) DM type 1 (diabetes mellitus, type 1): Recent hemoglobin A1c of 9.1 last October 2021 He had an episode of hypoglycemia today Currently on Lantus and novolog sliding scale Pharmacy on board for glycemic management Continue monitor BS closely while on Dexamethasone Chronic anemia Worsening anemia. No obvious blood loss S/p 1 PRBC with HD on 01/05/22 Hbg is 7.9 today Continue monitor cbc Seizure disorder, stable on regimen DVT ppx no heparin subq due to low hgb Admission and Anticipated Discharge Date Admission Date: January 04, 2022 Subjective 01/17/2022 The patient was seen and examined in telemetry unit He complains to have pain and cough with black phlegm Associated with minimal shortness of breath but has not been requiring any oxygen At times he screams with the pain with nagging constant pain all the time Remains unsteady on feet Review of Systems Review of Systems: All systems reviewed and are unremarkable except as noted below Respiratory: No shortness of breath but has cough and chest pain Physical Exam Physical Exam: Sitting at the edge of the bed without any acute distress Constitutional: well developed, well nourished, + ill appearing and average body habitus Eyes: PERRL, conjunctivae normal, anicteric sclerae ENMT: external ear and nose normal, oropharynx normal Neck: trachea midline, no thyromegaly Respiratory: no respiratory distress Auscultation: + diminished lung sounds and + crackles (Left lung) Cardiovascular: Rate/Rhythm: regular rate and regular rhythm; not tachycardic Heart Sounds: normal S1 and normal S2; no murmur Extremities: + edema (Trace edema bilaterally) Gastrointestinal (Abdomen): Inspection/Auscultation: normal bowel sounds; abdomen not distended Percussion/Palpation: abdomen soft; abdomen nontender Musculoskeletal: No acute arthritis in any joint Neurologic: Alert, awake and oriented x3 Psychiatric: A+Ox3, euthymic affect Results & Data Results & Data ([facility]) Vital Signs (Past 12 Hours) Vital Signs Temp Pulse Pulse Pulse Resp BP BP 01/17/22 12:50 37 C 88 157/84 H 01/17/22 12:30 84 118/73 01/17/22 12:00 88 120/76 01/17/22 11:30 89 130/72 01/17/22 11:00 90 140/82 01/17/22 10:30 90 127/67 01/17/22 10:00 94 H 140/81 01/17/22 09:30 93 H 113/74 01/17/22 09:00 92 H 130/80 01/17/22 08:45 96 H 140/77 01/17/22 08:38 36.7 C 96 H 01/17/22 08:00 91 H 01/17/22 08:00 01/17/22 07:14 36.7 C 88 20 126/66 01/17/22 03:48 36.6 C 90 20 144/79 H Pulse Ox O2 Del Method 01/17/22 12:50 01/17/22 12:30 01/17/22 12:00 01/17/22 11:30 01/17/22 11:00 01/17/22 10:30 01/17/22 10:00 01/17/22 09:30 01/17/22 09:00 01/17/22 08:45 01/17/22 08:38 01/17/22 08:00 01/17/22 08:00 Room Air 01/17/22 07:14 90 Room Air 01/17/22 03:48 93 Room Air Laboratory Results Short CBC 01/17/22 Range/Units 06:09 WBC 9.44 (4.8-10.8) K/ul Hgb 7.6 L (14.0-18.0) g/dl Hct 24.8 L (40.1-51.0) % Plt Count 222 (130-400) K/uL BMP 01/17/22 06:09 Sodium 137 Potassium 5.6 H Chloride 103 Carbon Dioxide 25 BUN 54 H Creatinine 5.18 H* Glucose 201 H Calcium 7.5 L Medications Administered Current Inpatient Medications Acetaminophen (Acetaminophen 325 Mg Tab) 650 mg PO Q6H DAMIR Stop: 02/03/22 15:29 Last Admin: 01/17/22 13:51 Dose: 650 mg Amlodipine Besylate (Amlodipine Besylate 5 Mg Tab) 10 mg PO HS DAMIR Stop: 02/03/22 20:59 Last Admin: 01/16/22 20:48 Dose: 10 mg Benzonatate (Benzonatate 100 Mg Capsule) 100 mg PO TID PRN PRN Reason: Cough Stop: 02/16/22 06:19 Carvedilol (Carvedilol 6.25 Mg Tab) 6.25 mg PO BID DAMIR Stop: 02/03/22 20:59 Last Admin: 01/17/22 08:47 Dose: Not Given Clonidine HCl (Clonidine Hcl 0.2 Mg/24 Hr Transderm Sys) 1 patch TD Fr@0900 DAMIR Stop: 02/04/22 08:59 Last Admin: 01/12/22 08:10 Dose: 1 patch Dexamethasone (Dexamethasone 1 Mg Tab) 2 mg PO DAILY DAMIR Stop: 02/16/22 08:59 Last Admin: 01/17/22 08:00 Dose: 2 mg Dextrose (Dextrose 50% 50 Ml Syringe) 25 - 50 ml IV UD PRN; Protocol PRN Reason: Hypoglycemia Protocol Stop: 02/03/22 01:23 Last Admin: 01/15/22 15:14 Dose: 50 ml Fentanyl (Fentanyl 75 Mcg/Hr Tdsy) 75 mcg TD Q3D@0900 DAMIR Stop: 01/18/22 13:59 Last Admin: 01/16/22 08:48 Dose: 75 mcg Fluticasone/Vilanterol (Fluticasone/Vilanterol 200/25mcg 14 Puffs/Inhaler) 1 puffs INH DAILY DAMIR Stop: 02/03/22 08:59 Last Admin: 01/17/22 08:04 Dose: 1 puffs Gabapentin (Gabapentin 400 Mg Cap) 400 mg PO TID DAMIR Stop: 02/13/22 04:39 Last Admin: 01/17/22 08:47 Dose: Not Given Glucagon (Glucagon For Inj 1 Mg Vial) 1 mg SQ UD PRN; Protocol PRN Reason: Hypoglycemia Protocol Stop: 02/03/22 01:23 Glucose (Glucose 40% Gel 15 Gm Tube) 15 - 30 gm PO UD PRN; Protocol PRN Reason: Hypoglycemia Protocol Stop: 02/03/22 01:23 Glucose (Glucose 10 Tab/Tube) 4 - 8 tab PO UD PRN; Protocol PRN Reason: Hypoglycemia Treatment Stop: 02/03/22 01:23 Guaifenesin (Guaifenesin 600 Mg Tabcr) 600 mg PO Q12 DAMIR Stop: 02/16/22 06:19 Last Admin: 01/17/22 07:56 Dose: 600 mg Heparin Sodium (Porcine) (Heparin Sod 5,000 Unit/0.5 Ml Vial) 5,000 units SQ Q12 DAMIR Stop: 02/03/22 20:59 Last Admin: 01/04/22 21:05 Dose: 5,000 units Heparin Sodium (Porcine) (Heparin 100 Unit/Ml 5ml Flush) 5 ml FLUSH PRN PRN PRN Reason: Flush Stop: 02/05/22 10:09 Last Admin: 01/11/22 12:38 Dose: 5 ml Hydromorphone HCl (Hydromorphone Inj 0.5 Mg/0.5 Ml Syr) 0.5 mg IV Q12H PRN PRN Reason: Severe Pain Stop: 01/26/22 13:45 Last Admin: 01/17/22 13:51 Dose: 0.5 mg Hydromorphone HCl (Hydromorphone Hcl 2 Mg Tab) 4 mg PO Q4H PRN PRN Reason: Pain Stop: 01/20/22 03:13 Promethazine HCl 12.5 mg/ (Sodium Chloride) 50.5 mls @ 202 mls/hr IV Q6H PRN PRN Reason: Nausea And Vomiting Stop: 02/02/22 23:13 Last Infusion: 01/07/22 13:45 Dose: Infused Insulin Aspart (Insulin Aspart Per Unit) 0 units SC ACHS [facility] [place] Stop: 02/14/22 06:44 Last Admin: 01/17/22 12:49 Dose: Not Given Insulin Glargine (Lantus Per Unit Charge) 6 units SQ BID [facility] [place]; Protocol Stop: 02/14/22 20:59 Last Admin: 01/17/22 08:02 Dose: 6 units Lactobacillus Acidophilus (Advanced Probiotic 1250 Mg Capsule) 2 cap PO DAILY [facility] [place] Stop: 02/03/22 08:59 Last Admin: 01/17/22 08:01 Dose: 2 cap Levetiracetam (Levetiracetam 250 Mg Tab) 750 mg PO BID DAMIR Stop: 02/03/22 08:59 Last Admin: 01/17/22 08:03 Dose: 750 mg Lidocaine (Lidocaine 5% 1 Patch) 2 patch TD QAM DAMIR Stop: 02/11/22 10:44 Last Admin: 01/17/22 08:04 Dose: 2 patch Lisinopril (Lisinopril 40 Mg Tab) 40 mg PO QAM DAMIR Stop: 02/03/22 01:29 Last Admin: 01/14/22 09:21 Dose: 40 mg Lorazepam (Lorazepam 0.5 Mg Tab) 0.5 mg PO HS PRN PRN Reason: Anxiety, sleep Stop: 02/06/22 20:26 Last Admin: 01/17/22 00:01 Dose: 0.5 mg Menthol (Cough Drop (Sugar Free) Marito 24 Marito/1 Box) 1 marito BUCCAL Q2H PRN PRN Reason: Sore Throat Stop: 02/16/22 06:19 Metoclopramide HCl (Metoclopramide Hcl 5 Mg Tablet) 5 mg PO DAILY [facility] Stop: 02/03/22 08:59 Last Admin: 01/17/22 08:00 Dose: 5 mg Miscellaneous (Remove Clonidine Patch) 1 each N/A Fr@0859 [facility] [place] Stop: 02/04/22 08:58 Last Admin: 01/12/22 08:12 Dose: 1 each Miscellaneous (Check Clonidine Patch Placement) 1 each N/A QS [facility] Stop: 02/03/22 07:59 Last Admin: 01/17/22 07:57 Dose: 1 each Miscellaneous (Check Fentanyl Patch Placement) 1 each N/A QS [facility] Stop: 02/03/22 07:59 Last Admin: 01/17/22 07:58 Dose: 1 each Miscellaneous (Carbohydrates For Hypoglycemia ) 15 - 30 gm PO UD PRN PRN Reason: Hypoglycemia Protocol Stop: 02/03/22 01:23 Miscellaneous (Fentanyl Patch Remove & Waste) 1 each N/A Q3D@0859 [facility] [place] Stop: 02/03/22 13:58 Last Admin: 01/16/22 08:48 Dose: 1 each Miscellaneous (Remove Nicoderm Patch) 1 each N/A DAILY@0859 [facility] [place] Stop: 02/05/22 08:58 Last Admin: 01/17/22 07:58 Dose: 1 each Miscellaneous (Remove Lidoderm Patch) 1 each N/A DAILY@2100 [facility] Stop: 02/10/22 04:59 Last Admin: 01/16/22 20:49 Dose: 1 each Miscellaneous Information (Pharmacy Glycemic Mgmt Consult) 1 each N/A UD PRN PRN Reason: Consult Stop: 02/09/22 08:21 Nicotine (Nicotine 14 Mg/24 Hr Patch) 14 mg TD QAM [facility] [place] Stop: 02/04/22 15:59 Last Admin: 01/17/22 08:03 Dose: 14 mg Olanzapine (Olanzapine 2.5 Mg Tab) 2.5 mg PO HS [facility] Stop: 02/03/22 01:23 Last Admin: 01/16/22 20:48 Dose: 2.5 mg Pantoprazole Sodium (Pantoprazole 40 Mg Tab) 40 mg PO QAM [facility] [place] Stop: 02/03/22 08:59 Last Admin: 01/17/22 08:00 Dose: 40 mg Senna/Docusate Sodium (Docusate Sodium/Senna 50/8.6mg Tab) 2 tab PO BID [facility] [place] Stop: 02/10/22 08:59 Last Admin: 01/17/22 08:03 Dose: 2 tab (1) Chest pain Chest pain type: unspecified Qualified Code(s): R07.9 - Chest pain, unspecified
--- NOTE | 2022-01-17 18:42 | Dialysis Progress Note ---
Date of Service January 17, 2022 Assessment & Plan (1) ESRD (end stage renal disease) on dialysis: Plan: tolerating HD today; has been having issues w/ recurrent hyperkalemia defer to primary for mgt of pain next HD on 01/19 or as needs dictate >>anemia worsened again after inexplicably improving late 01/13 > transfuse PRN; not an al candidate >would check hgb, bmp daily -recently placed AVF maturing appropirately per vascular >started veltassa today after HD and daily Admission and Anticipated Discharge Date Admission Date: January 04, 2022 Subjective seen on HD this am at about 1030; no worsening sob; ongoign severe joint/bone /chest pain Review of Systems Review of Systems: All systems reviewed & are unremarkable except as noted in Subjective Physical Exam Constitutional: well developed, + ill appearing, cooperative and + lethargic; no acute distress Eyes: EOM intact bilaterally ENMT: Ears: no external ear abnormality Nose: no external nose abnormality Mouth: + dry oral mucous membranes Neck: no nuchal rigidity Respiratory: normal respiratory effort Auscultation: + diminished lung sounds Cardiovascular: Rate/Rhythm: regular rate and regular rhythm Extremities: no edema Gastrointestinal (Abdomen): Inspection/Auscultation: normal bowel sounds Percussion/Palpation: abdomen soft; abdomen nontender Musculoskeletal: Extremities: strength 5/5 throughout Skin: no rashes, warm and dry Neurologic: villarreal, fluent speech, no tremor Psychiatric: Orientation: oriented x 3; + not alert Results & Data ([place]) Vital Signs (Past 12 Hours) Vital Signs Temp Pulse Pulse Pulse Resp BP BP 01/17/22 16:36 36.8 C 93 H 18 158/81 H 01/17/22 16:00 99 H 01/17/22 12:50 37 C 88 157/84 H 01/17/22 12:30 84 118/73 01/17/22 12:00 88 120/76 01/17/22 11:30 89 130/72 01/17/22 11:00 90 140/82 01/17/22 10:30 90 127/67 01/17/22 10:00 94 H 140/81 01/17/22 09:30 93 H 113/74 01/17/22 09:00 92 H 130/80 01/17/22 08:45 96 H 140/77 01/17/22 08:38 36.7 C 96 H 01/17/22 08:00 91 H 01/17/22 08:00 01/17/22 07:14 36.7 C 88 20 126/66 Pulse Ox O2 Del Method 01/17/22 16:36 96 01/17/22 16:00 01/17/22 12:50 01/17/22 12:30 01/17/22 12:00 01/17/22 11:30 01/17/22 11:00 01/17/22 10:30 01/17/22 10:00 01/17/22 09:30 01/17/22 09:00 01/17/22 08:45 01/17/22 08:38 01/17/22 08:00 01/17/22 08:00 Room Air 01/17/22 07:14 90 Room Air Laboratory Results 01/17/22 06:09 01/17/22 06:09
[2022-01-17] MEDS ORDERED: PATIROMER CALCIUM SORBITEX 8.4 GM PACK PO SCH (20:00)
[2022-01-17] MEDS: amLODIPine BESYLATE 5 MG TAB PO SCH (20:42)
[2022-01-17] MEDS: OLANZAPINE 2.5 MG TAB PO SCH (20:42)
[2022-01-18] MEDS: HYDROmorphone HCL 2 MG TAB PO PRN ×4 (00:39→13:46)
[2022-01-18] MEDS: LORazepam 0.5 MG TAB PO PRN (00:39)
[2022-01-18] MEDS: HYDROmorphone INJ 0.5 MG/0.5 ML SYR IV PRN ×2 (02:03→10:10)
[2022-01-18] MEDS: ACETAMINOPHEN 325 MG TAB PO SCH ×4 (03:24→20:57)
[2022-01-18] MEDS: INSULIN ASPART PER UNIT SC SCH ×4 (07:30→20:58)
[2022-01-18] MEDS: CHECK fentaNYL PATCH PLACEMENT SCH ×3 (07:36→16:30)
[2022-01-18] MEDS: CHECK CLONIDINE PATCH PLACEMENT SCH ×3 (07:36→15:57)
[2022-01-18 08:14] LABS: Basophils # (auto) 0.02 K/uL (0-0.2); Basophils % (auto) 0.2 %; Eosinophils # (auto) 0.36 K/uL (0-0.50); Eosinophils % (auto) 4.2 %; Hematocrit (blood only) 25.5 % (40.1-51.0); Hemoglobin 7.6 g/dl (14.0-18.0); Immature Granulocytes # (auto) 0.07 K/uL (0.00-0.02); Immature Granulocytes % (auto) 0.8 %; Lymphocytes # (auto) 0.93 K/uL (1.2-3.4); Lymphocytes % (auto) 10.9 %; Mean Corpuscular Hemoglobin 28.6 pg (25.0-34.0); Mean Corpuscular Hgb Conc 29.8 g/dL (32.0-36.0); Mean Corpuscular Volume 95.9 fL (80.0-100.0); Mean Platelet Volume 10.4 fL (9.4-12.4); Monocytes # (auto) 0.73 K/uL (0.24-0.82); Monocytes % (auto) 8.5 %; Neutrophils # (auto) 6.43 K/uL (1.4-6.5); Neutrophils % (auto) 75.4 %; Platelet Count 214 K/uL (130-400); RDW Standard Deviation 48.9 fL (36.4-46.3); Red Blood Count 2.66 M/uL (4.63-6.08); White Blood Count 8.54 K/ul (4.8-10.8)
[2022-01-18] MEDS: dexAMETHasone 1 MG TAB PO SCH (08:20)
[2022-01-18] MEDS: DOCUSATE SODIUM/SENNA 50/8.6MG TAB PO SCH ×2 (08:21→21:07)
[2022-01-18] MEDS: GABAPENTIN 400 MG CAP PO SCH ×3 (08:22→20:57)
[2022-01-18] MEDS: carvediloL 6.25 MG TAB PO SCH ×2 (08:23→20:57)
[2022-01-18] MEDS: guaiFENesin 600 MG TABCR PO SCH ×2 (08:23→20:57)
[2022-01-18] MEDS: levETIRAcetam 250 MG TAB PO SCH ×2 (08:23→20:58)
[2022-01-18] MEDS: ADVANCED PROBIOTIC 1250 MG CAPSULE PO SCH (08:24)
[2022-01-18] MEDS: LIDOCAINE 5% 1 PATCH TD SCH (08:24)
[2022-01-18] MEDS: PANTOprazole 40 MG TAB PO SCH (08:25)
[2022-01-18] MEDS: METOCLOPRAMIDE HCL 5 MG TABLET PO SCH (08:25)
[2022-01-18] MEDS: NICOTINE 14 MG/24 HR PATCH TD SCH (08:26)
[2022-01-18 08:36] LABS: Calcium 7.6 mg/dl (8.5-10.1); Creatinine Clr Calc Pharmacy 20.1 ml/min; Est GFR (African American) 16.1 ml/min; Est GFR (Non-African American) 13.9 ml/min; Potassium 5.3 mmol/L (3.5-5.1)
[2022-01-18 08:40] LABS: RBC Morphology Unremarkable
[2022-01-18] MEDS ORDERED: LANTUS PER UNIT CHARGE SQ SCH ×2 (09:00→21:00)
[2022-01-18] MEDS: CARBOHYDRATES FOR HYPOGLYCEMIA PO PRN ×2 (09:14→09:31)
[2022-01-18] MEDS: FLUTICASONE/VILANTEROL 200/25MCG 14 PUFFS/INHALER INH SCH (10:15)
[2022-01-18] MEDS: PATIROMER CALCIUM SORBITEX 8.4 GM PACK PO SCH (12:32)
--- NOTE | 2022-01-18 13:02 | Pharmacy Report ---
Pharmacy Glycemic Short Note 2 - Date of Service January 18, 2022 - Glycemic Short BSG Results (Last 24 hours): 01/17/22 01/17/22 01/17/22 16:01 16:01 20:32 Glucose POC Glucose 312 H* 339 H* 79 01/17/22 01/18/22 01/18/22 23:59 06:58 08:04 Glucose 163 H POC Glucose 212 H 230 H 01/18/22 01/18/22 01/18/22 09:11 09:29 09:55 Glucose POC Glucose 44 L* 47 L* 119 H 01/18/22 12:30 Glucose POC Glucose 433 H* OUTPATIENT ANTIDIABETIC REGIMEN: * Lantus 7 units SC HS * Novolog ACHS (unknown dose, but prior visits listed as <30 units/day) * HbA1c: 9.1% (10/21/21) * However, this result is likely somewhat unreliable in ESRD patients d/t interactions between the A1c analyzing technique and high levels of urea in ESRD, reduced RBC life span, iron deficiency anemia, and EPO administration. HbA1c > 7.5% in ESRD patient may overestimate the extent of hyperglycemia in ESRD patients. ASSESSMENT: 01/18: * Patient's BSGs have been labile the past 24 hrs [phone] mg/dL, with a fasting of 230 mg/dL this AM and a hypoglycemic event (47) two hours later after using correction factor 35 and carb ratio of 8. BSG at lunch 433 mg/dL * Loosened correction to 40 mg and carb ratio to 10. Anticipate BSG will drop with correction. * Did adjust AM lantus dose to 8 units, will set scale for PM dose. * Continues of dexamethasone 2 mg. 01/17: * BSGs acceptable the last 24h: [phone]/dL. Fasting 191mg/dL this AM. Received 22 units of basal and 27 units of bolus insulin yesterday. * Tolerating diet, dexamethasone dose decreased to 2mg daily starting today. * Will empirically reduce both Lantus and Novolog given reduction in steroid. Lantus 6 units BID (~50% reduction). Novolog parameters loosened to 30/9. May need further reduction pending response. Monitor closely. 01/16: * BSGs [phone]/dL the last 24h. Patient had a hypoglycemic event yesterday and received D50%. Fasting this AM was elevated to 315mg/dL. Rec eived 17 units of basal yesterday in response to low, and 25 units of bolus. * Tolerating diet (noted to be snacking), dexamethasone 4mg PO continues. * Lantus decreased to 11 units BID starting today. Novolog loosened to 25/8 with a max dose of 13 units. Will continue to monitor closely; likely will not be able to achieve good control given labile BSGs and snacking. Will continue with more conservative insulin dosing with focus to prevent hypoglycemia. 01/15: * BSGs [phone]/dL. Fasting BSG elevated at 222mg/dL this AM. Received 22 units of basal and 47 units of Novolog yesterday. * Continues on dex 40mg PO daily, tolerating diet * Continue slow titration of Lantus - 12 units BID today. No change to Novolog parameters 01/14: * BSGs continue to be elevated, improved throughout the day yesterday * Will continue current Novolog parameters * Steroid-induced hyperglycemia (continues on dexamethasone 4 mg PO daily) * Persistently elevated fasting BSGs, 285 mg/dL this morning - will continue to increase Lantus today * Patient will need significant reduction in insulin doses once steroids are discontinued 01/12: * BSGs [phone]/dL the last 24h. Received 16 units of basal and 48 units of bolus insulin yesterday. * Continues on PO dex and tolerating diet. * Given elevated fasting this AM, scheduled Lantus 9 units BID today. Novolog tightened last evening to 30/9 and tightened again today with lunch to 25/8. Will continue to closely monitor. 01/11: * BSGs extremely labile since initiation of steroids: [phone]/dL. Received 16 units of basal and 47 units of bolus insulin yesterday which is approximately 3X his normal overall daily requirement. * Continues on dexamethasone 4mg PO daily and tolerating diet. * Continue with Lantus sliding scale BID based upon BSG and titrate conservatively. Novolog tightened slightly to 30/10 to help with prandial BSG coverage. Will continue to monitor closely given tenuous glycemic status. 01/10: * 56 yo M w T1DM well known to pharmacy glycemic service admitted. Patient has historically labile BSGs while inpatient (hypo/hyperglycemia). * Complicated PMH includes ESRD, T1DM, and left Non-small cell lung cancer with mets to bone * Admitted 01/03 for hypertensive crisis. Palliative discussion on 01/08 - patient not yet ready to transition to hospice. Poor prognosis noted. Dexamethasone started. * BSG's were moderately well controlled for this patient (given history of labile BSG's) earlier in admission, but pharmacy consulted for glycemic management on 01/10 2nd AM fasting BSG >400 mg/dL, likely precipitated by dexamethasone which started on 01/09 * No prior history of being on steroids, but known labile BSG's. Will attempt to maintain on basal/bolus, but patient may require temporary insulin drip while steroid effects on BSG's are determined/assessed. Will increase Lantus and tighten Novolog parameters. PLAN FOR INPATIENT GLYCEMIC CONTROL: * Basal insulin * Lantus 8 units SC this AM, 0/4/8 this evening * Bolus insulin * NovoLog per scale ACHS or Q6hrs while NPO * Goal Range: Low 120 mg/dL - High 160 mg/dL * Correction Factor: 40 mg/dL/unit * Nutritional / Prandial insulin per carb ratio of 1 unit per 10 grams CHO consumed (max 13 units)
--- NOTE | 2022-01-18 13:18 | Hospitalist Progress Note ---
Date of Service January 18, 2022 Assessment & Plan (1) Chest pain: Plan: (1) Chest pain: Secondary to carcinoma of the lung Chest pain is atypical mostly due to metastatic disease CT chest 01/07/22 showed new bony lesions at T8, left 8th rib as well as T5-6, stable destructive lesion on left 9th rib, interval enlargement of left axillary node and stable Left upper pleural based mass Trop is normal. No ACS on EKG. Echo noted normal LV size with moderate concentric LVH without segmental wall motion abnormalities, EF of 55 to 60%. Continue carvedilol Continue po Dilaudid and fentanyl patch Lidocaine patch added for each shoulder Pain has been increasing Will increase fentanyl patch 100 mcg and will keep Dilaudid as it is Pain seems to be reasonably controlled today History of COPD Metastatic NSCLC status post surgery, radiation/incomplete chemotherapy se condary to intolerance Patient not a candidate for additional treatment as per recent outpatient Oncology note No acute shortness of breath and or wheezing (2) Primary cancer of left lung metastatic to other site: On 01/08/22, Previous hospitalist spoke with patient's Oncologist, Dr Lion Keith who stated no further treatment/chemo is recommended. Palliative on board Patient is not ready to transition to hospice, stated he has somethings to take care of before that. He understands prognosis is poor. Wants to continue full code for now until he is ready Radiation oncology on board S/P CT simulation for treatment planning to initiate radiation therapy Next radiation therapy schedule for tomorrow Continue dexamethasone-to milligram from 01/17/2022 for 1 week and then 1 mg for next week Palliative made referral to [facility] Palliative who will follow up with patient. Case discussed with Palliative that recommended not to increase the fentanyl patch due to risk of opioid toxicity on ESRD patient Continue Low dose of IV Dialudid 0.5 IV prn q12h while inpatient Will increase fentanyl patch 100 micrograms every 3 days The patient and the family members are asking for palliative care consult We will discussed with the family members and put the consult for (3) Hypertensive crisis: Presenting as headache and chest pain symptoms ?Hypertensive emergency Patient reports chronic intermittent generalized body pains for which he is on opioids (confirmed on PDMP) Concern for possible poor med adherence considering recurrent admissions; likely complicated by nausea/vomiting related to gastroparesis Continue lisinopril, clonidine Continue amlodipine and carvedilol started during this visit BP remains at the upper side and 167/93 as of today (4) Wound of left foot: CT foot does not show any osteomyelitis Related to dropfoot brace which was quite tight Ortho eval appreciated Wound care while inpatient Reports he already made appt with a water pump installer ALEXANDER swelling and ecchymosis Pt said that swelling and ecchymosis improved. If worsening, will consider to get an u/s of LUE Clinically improved significantly (5) Intractable nausea and vomiting: (6) Gastroparesis: History of IBD, gastroparesis status post gastric pacemaker, symptoms better after recent pacemaker adjustment Continue antiemetics prn Hyperkalemia Mostly due to ESRD Potassium 5.9 today Case discussed with nephrology Pt had a 2 HR HD today- next HD tomorrow Continue monitor BMP -5.3 today and has been on dialysis (7) ESRD (end stage renal disease) on dialysis: Nephrology on board Schedule for HD on // Pt had 2hr HD today Next HD schedule for Saturday (8) DM type 1 (diabetes mellitus, type 1): Recent hemoglobin A1c of 9.1 last October 2021 He had an episode of hypoglycemia today Currently on Lantus and novolog sliding scale Pharmacy on board for glycemic management Continue monitor BS closely while on Dexamethasone Blood sugar has been running high and will cover as needed with insulin Chronic anemia Worsening anemia. No obvious blood loss S/p 1 PRBC with HD on 01/05/22 Hbg is 7.9 today Continue monitor cbc Seizure disorder, stable on regimen DVT ppx no heparin subq due to low hgb Admission and Anticipated Discharge Date Admission Date: January 04, 2022 Subjective 01/17/2022 The patient was seen and examined in telemetry unit He complains to have pain and cough with black phlegm Associated with minimal shortness of breath but has not been requiring any oxygen At times he screams with the pain with nagging constant pain all the time Remains unsteady on feet 01/18/2022 The patient was seen and examined in telemetry unit His pain seems to be reasonably controlled today Denies any shortness of breath at rest Remains unsteady on feet Review of Systems Review of Systems: All systems reviewed and are unremarkable except as noted below Respiratory: No shortness of breath but has cough and chest pain Physical Exam Physical Exam: Sitting at the edge of the bed without any acute distress Constitutional: well developed, well nourished, + ill appearing and average body habitus Eyes: PERRL, conjunctivae normal, anicteric sclerae ENMT: external ear and nose normal, oropharynx normal Neck: trachea midline, no thyromegaly Respiratory: no respiratory distress Auscultation: + diminished lung sounds and + crackles (Left lung) Cardiovascular: Rate/Rhythm: regular rate and regular rhythm; not tachycardic Heart Sounds: normal S1 and normal S2; no murmur Extremities: + edema (1-2+ edema bilaterally.) Gastrointestinal (Abdomen): Inspection/Auscultation: normal bowel sounds; abdomen not distended Percussion/Palpation: abdomen soft; abdomen nontender Musculoskeletal: No acute arthritis in any joint Neurologic: Alert, awake and oriented x3. Generally weak but no focal sensory or no motor deficit appreciated Psychiatric: A+Ox3, euthymic affect Lymphatic: no cervical or axillary lymphadenopathy Results & Data Results & Data ([facility]) Vital Signs (Past 12 Hours) Vital Signs Temp Pulse Pulse Pulse Resp BP Pulse Ox 01/18/22 11:10 36.7 C 92 H 14 167/93 H 97 01/18/22 10:00 01/18/22 07:00 93 H 01/18/22 07:51 36.9 C 93 H 16 110/57 L 90 01/18/22 03:24 37.3 C 86 16 109/58 L 90 O2 Del Method 01/18/22 11:10 Room Air 01/18/22 10:00 Room Air 01/18/22 07:00 01/18/22 07:51 Room Air 01/18/22 03:24 Room Air Laboratory Results Short CBC 01/18/22 Range/Units 08:04 WBC 8.54 (4.8-10.8) K/ul Hgb 7.6 L (14.0-18.0) g/dl Hct 25.5 L (40.1-51.0) % Plt Count 214 (130-400) K/uL BMP 01/18/22 08:04 Sodium 138 Potassium 5.3 H Chloride 103 Carbon Dioxide 25 BUN 44 H Creatinine 4.42 H D Glucose 163 H Calcium 7.6 L Medications Administered Current Inpatient Medications Acetaminophen (Acetaminophen 325 Mg Tab) 650 mg PO Q6H DAMIR Stop: 02/03/22 15:29 Last Admin: 01/18/22 08:26 Dose: 650 mg Amlodipine Besylate (Amlodipine Besylate 5 Mg Tab) 10 mg PO HS DAMIR Stop: 02/03/22 20:59 Last Admin: 01/17/22 20:42 Dose: 10 mg Benzonatate (Benzonatate 100 Mg Capsule) 100 mg PO TID PRN PRN Reason: Cough Stop: 02/16/22 06:19 Carvedilol (Carvedilol 6.25 Mg Tab) 6.25 mg PO BID DAMIR Stop: 02/03/22 20:59 Last Admin: 01/18/22 08:23 Dose: 6.25 mg Clonidine HCl (Clonidine Hcl 0.2 Mg/24 Hr Transderm Sys) 1 patch TD Fr@0900 DAMIR Stop: 02/04/22 08:59 Last Admin: 01/12/22 08:10 Dose: 1 patch Dexamethasone (Dexamethasone 1 Mg Tab) 2 mg PO DAILY DAM[facility] Stop: 02/16/22 08:59 Last Admin: 01/18/22 08:20 Dose: 2 mg Dextrose (Dextrose 50% 50 Ml Syringe) 25 - 50 ml IV UD PRN; Protocol PRN Reason: Hypoglycemia Protocol Stop: 02/03/22 01:23 Last Admin: 01/15/22 15:14 Dose: 50 ml Fentanyl (Fentanyl 100 Mcg/Hr Tdsy) 100 mcg TD Q3D DAMIR Stop: 01/31/22 17:59 Last Admin: 01/17/22 17:41 Dose: 100 mcg Fluticasone/Vilanterol (Fluticasone/Vilanterol 200/25mcg 14 Puffs/Inhaler) 1 puffs INH DAILY DAMIR Stop: 02/03/22 08:59 Last Admin: 01/18/22 10:15 Dose: 1 puffs Gabapentin (Gabapentin 400 Mg Cap) 400 mg PO TID DAMIR Stop: 02/13/22 04:39 Last Admin: 01/18/22 08:22 Dose: 400 mg Glucagon (Glucagon For Inj 1 Mg Vial) 1 mg SQ UD PRN; Protocol PRN Reason: Hypoglycemia Protocol Stop: 02/03/22 01:23 Glucose (Glucose 40% Gel 15 Gm Tube) 15 - 30 gm PO UD PRN; Protocol PRN Reason: Hypoglycemia Protocol Stop: 02/03/22 01:23 Glucose (Glucose 10 Tab/Tube) 4 - 8 tab PO UD PRN; Protocol PRN Reason: Hypoglycemia Treatment Stop: 02/03/22 01:23 Guaifenesin (Guaifenesin 600 Mg Tabcr) 600 mg PO Q12 [facility] Stop: 02/16/22 06:19 Last Admin: 01/18/22 08:23 Dose: 600 mg Heparin Sodium (Porcine) (Heparin Sod 5,000 Unit/0.5 Ml Vial) 5,000 units SQ Q12 DAMIR Stop: 02/03/22 20:59 Last Admin: 01/04/22 21:05 Dose: 5,000 units Heparin Sodium (Porcine) (Heparin 100 Unit/Ml 5ml Flush) 5 ml FLUSH PRN PRN PRN Reason: Flush Stop: 02/05/22 10:09 Last Admin: 01/11/22 12:38 Dose: 5 ml Hydromorphone HCl (Hydromorphone Inj 0.5 Mg/0.5 Ml Syr) 0.5 mg IV Q12H PRN PRN Reason: Severe Pain Stop: 01/26/22 13:45 Last Admin: 01/18/22 10:10 Dose: 0.5 mg Hydromorphone HCl (Hydromorphone Hcl 2 Mg Tab) 2 mg PO Q3H PRN PRN Reason: Pain Stop: 01/31/22 14:55 Last Admin: 01/18/22 07:41 Dose: 2 mg Promethazine HCl 12.5 mg/ (Sodium Chloride) 50.5 mls @ 202 mls/hr IV Q6H PRN PRN Reason: Nausea And Vomiting Stop: 02/02/22 23:13 Last Infusion: 01/07/22 13:45 Dose: Infused Insulin Aspart (Insulin Aspart Per Unit) 0 units SC ACHS [facility] Stop: 02/14/22 06:44 Last Admin: 01/18/22 12:52 Dose: 15 units Insulin Glargine (Lantus Per Unit Charge) 0 units SQ BID [facility]; Protocol Stop: 02/14/22 20:59 Lactobacillus Acidophilus (Advanced Probiotic 1250 Mg Capsule) 2 cap PO DAILY [facility] Stop: 02/03/22 08:59 Last Admin: 01/18/22 08:24 Dose: 2 cap Levetiracetam (Levetiracetam 250 Mg Tab) 750 mg PO BID [facility] Stop: 02/03/22 08:59 Last Admin: 01/18/22 08:23 Dose: 750 mg Lidocaine (Lidocaine 5% 1 Patch) 2 patch TD QAM [facility] Stop: 02/11/22 10:44 Last Admin: 01/18/22 08:24 Dose: 2 patch Lisinopril (Lisinopril 40 Mg Tab) 40 mg PO QAM [facility] Stop: 02/03/22 01:29 Last Admin: 01/14/22 09:21 Dose: 40 mg Lorazepam (Lorazepam 0.5 Mg Tab) 0.5 mg PO HS PRN PRN Reason: Anxiety, sleep Stop: 02/06/22 20:26 Last Admin: 01/18/22 00:39 Dose: 0.5 mg Menthol (Cough Drop (Sugar Free) Marito 24 Marito/1 Box) 1 marito BUCCAL Q2H PRN PRN Reason: Sore Throat Stop: 02/16/22 06:19 Metoclopramide HCl (Metoclopramide Hcl 5 Mg Tablet) 5 mg PO DAILY [facility] Stop: 02/03/22 08:59 Last Admin: 01/18/22 08:25 Dose: 5 mg Miscellaneous (Remove Clonidine Patch) 1 each N/A Fr@0859 [facility] Stop: 02/04/22 08:58 Last Admin: 01/12/22 08:12 Dose: 1 each Miscellaneous (Check Clonidine Patch Placement) 1 each N/A QS [facility] Stop: 02/03/22 07:59 Last Admin: 01/18/22 07:36 Dose: 1 each Miscellaneous (Carbohydrates For Hypoglycemia ) 15 - 30 gm PO UD PRN PRN Reason: Hypoglycemia Protocol Stop: 02/03/22 01:23 Last Admin: 01/18/22 09:31 Dose: 30 gm Miscellaneous (Remove Nicoderm Patch) 1 each N/A DAILY@0859 [facility] Stop: 02/05/22 08:58 Last Admin: 01/18/22 08:20 Dose: 1 each Miscellaneous (Remove Lidoderm Patch) 1 each N/A DAILY@2100 [facility] Stop: 02/10/22 04:59 Last Admin: 01/17/22 21:01 Dose: 1 each Miscellaneous (Fentanyl Patch Remove & Waste) 1 each N/A Q3D [facility] Stop: 02/16/22 17:58 Last Admin: 01/17/22 17:35 Dose: Not Given Miscellaneous (Check Fentanyl Patch Placement) 1 each N/A QS [facility] Stop: 02/17/22 00:00 Last Admin: 01/18/22 07:36 Dose: 1 each Miscellaneous Information (Pharmacy Glycemic Mgmt Consult) 1 each N/A UD PRN PRN Reason: Consult Stop: 02/09/22 08:21 Nicotine (Nicotine 14 Mg/24 Hr Patch) 14 mg TD QAM [facility] Stop: 02/04/22 15:59 Last Admin: 01/18/22 08:26 Dose: 14 mg Olanzapine (Olanzapine 2.5 Mg Tab) 2.5 mg PO HS [facility] Stop: 02/03/22 01:23 Last Admin: 01/17/22 20:42 Dose: 2.5 mg Pantoprazole Sodium (Pantoprazole 40 Mg Tab) 40 mg PO QAM [facility] Stop: 02/03/22 08:59 Last Admin: 01/18/22 08:25 Dose: 40 mg Patiromer (Patiromer Calcium Sorbitex 8.4 Gm Pack) 16.8 gm PO DAILY@1100 [facility] Stop: 02/17/22 10:59 Last Admin: 01/18/22 12:32 Dose: 16.8 gm Senna/Docusate Sodium (Docusate Sodium/Senna 50/8.6mg Tab) 2 tab PO BID [facility] Stop: 02/10/22 08:59 Last Admin: 01/18/22 08:21 Dose: Not Given (1) Chest pain Chest pain type: unspecified Qualified Code(s): R07.9 - Chest pain, unspecified
[2022-01-18] MEDS ORDERED: MoRPHine SULFATE IR 15 MG TAB (IMMEDIATE RELEASE) PO PRN (15:10)
[2022-01-18] MEDS ORDERED: fentaNYL 100 MCG/HR TDSY TD SCH (17:00)
[2022-01-18] MEDS: MoRPHine SULFATE IR 15 MG TAB (IMMEDIATE RELEASE) PO PRN ×2 (17:28→23:28)
[2022-01-18] MEDS: OLANZAPINE 2.5 MG TAB PO SCH (20:57)
[2022-01-18] MEDS: amLODIPine BESYLATE 5 MG TAB PO SCH (20:57)
[2022-01-19] MEDS ORDERED: CHECK fentaNYL PATCH PLACEMENT SCH
[2022-01-19] MEDS: fentaNYL 100 MCG/HR TDSY TD SCH (00:24)
[2022-01-19] MEDS: HYDROmorphone INJ 0.5 MG/0.5 ML SYR IV PRN ×2 (00:35→15:28)
[2022-01-19] MEDS: LORazepam 0.5 MG TAB PO PRN (00:35)
[2022-01-19] MEDS: ACETAMINOPHEN 325 MG TAB PO SCH ×4 (03:15→20:45)
[2022-01-19] MEDS: MoRPHine SULFATE IR 15 MG TAB (IMMEDIATE RELEASE) PO PRN ×3 (05:30→20:50)
[2022-01-19] MEDS ORDERED: SODIUM CHLORIDE 0.9% 1000ML 1,000 ML IV PRN (07:00)
[2022-01-19] MEDS: CHECK fentaNYL PATCH PLACEMENT SCH ×4 (07:51→23:17)
[2022-01-19] MEDS: CHECK CLONIDINE PATCH PLACEMENT SCH ×4 (07:51→23:17)
[2022-01-19] MEDS: INSULIN ASPART PER UNIT SC SCH ×4 (07:57→20:42)
[2022-01-19] MEDS: carvediloL 6.25 MG TAB PO SCH ×2 (08:15→20:40)
[2022-01-19] MEDS: PANTOprazole 40 MG TAB PO SCH (08:15)
[2022-01-19] MEDS: NICOTINE 14 MG/24 HR PATCH TD SCH (08:15)
[2022-01-19] MEDS: DOCUSATE SODIUM/SENNA 50/8.6MG TAB PO SCH ×2 (08:17→20:40)
[2022-01-19] MEDS: dexAMETHasone 1 MG TAB PO SCH (08:17)
[2022-01-19] MEDS: guaiFENesin 600 MG TABCR PO SCH ×2 (08:17→20:41)
[2022-01-19] MEDS: GABAPENTIN 400 MG CAP PO SCH ×3 (08:18→20:40)
[2022-01-19] MEDS: ADVANCED PROBIOTIC 1250 MG CAPSULE PO SCH (08:18)
[2022-01-19] MEDS: levETIRAcetam 250 MG TAB PO SCH ×2 (08:19→20:43)
[2022-01-19] MEDS: METOCLOPRAMIDE HCL 5 MG TABLET PO SCH (08:19)
[2022-01-19] MEDS: LIDOCAINE 5% 1 PATCH TD SCH (08:19)
[2022-01-19] MEDS: FLUTICASONE/VILANTEROL 200/25MCG 14 PUFFS/INHALER INH SCH (08:20)
[2022-01-19] MEDS ORDERED: LANTUS PER UNIT CHARGE SQ SCH ×2 (09:00→21:00)
--- NOTE | 2022-01-19 14:09 | Pharmacy Report ---
Pharmacy Glycemic Short Note 2 - Date of Service January 19, 2022 - Glycemic Short BSG Results (Last 24 hours): 01/18/22 01/18/22 01/18/22 13:54 15:53 16:15 POC Glucose 87 45 L* 159 H 01/18/22 01/19/22 01/19/22 20:36 07:16 12:52 POC Glucose 126 H 165 H 45 L* 01/19/22 01/19/22 01/19/22 12:56 13:08 13:18 POC Glucose 44 L* 49 L* 56 L* 01/19/22 13:30 POC Glucose 74 OUTPATIENT ANTIDIABETIC REGIMEN: * Lantus 7 units SC HS * Novolog ACHS (unknown dose, but prior visits listed as <30 units/day) * HbA1c: 9.1% (10/21/21) * However, this result is likely somewhat unreliable in ESRD patients d/t interactions between the A1c analyzing technique and high levels of urea in ESRD, reduced RBC life span, iron deficiency anemia, and EPO administration. HbA1c > 7.5% in ESRD patient may overestimate the extent of hyperglycemia in ESRD patients. ASSESSMENT: 01/19: * BSGs labile: [phone]/dL. Fasting 165mg/dL this AM followed by a hypoglycemic event at lunchtime check. Received 12 units basal and 25 units of bolus insulin yesterday. * Continues on dexamethasone 2mg and tolerating diet * Lantus decreased to 5 units this AM; will reduce further to 3 units for tonig ht's dose. Novolog again loosened to 55/18 at lunch. Reassess Lantus/Novolog tomorrow. 01/18: * Patient's BSGs have been labile the past 24 hrs [phone] mg/dL, with a fasting of 230 mg/dL this AM and a hypoglycemic event (47) two hours later after using correction factor 35 and carb ratio of 8. BSG at lunch 433 mg/dL * Loosened correction to 40 mg and carb ratio to 10. Anticipate BSG will drop with correction. * Did adjust AM lantus dose to 8 units, will set scale for PM dose. * Continues of dexamethasone 2 mg. 01/17: * BSGs acceptable the last 24h: [phone]/dL. Fasting 191mg/dL this AM. Received 22 units of basal and 27 units of bolus insulin yesterday. * Tolerating diet, dexamethasone dose decreased to 2mg daily starting today. * Will empirically reduce both Lantus and Novolog given reduction in steroid. Lantus 6 units BID (~50% reduction). Novolog parameters loosened to 30/9. May need further reduction pending response. Monitor closely. 01/16: * BSGs [phone]/dL the last 24h. Patient had a hypoglycemic event yesterday and received D50%. Fasting this AM was elevated to 315mg/dL. Received 17 units of basal yesterday in response to low, and 25 units of bolus. * Tolerating diet (noted to be snacking), dexamethasone 4mg PO continues. * Lantus decreased to 11 units BID starting today. Novolog loosened to /8 with a max dose of 13 units. Will continue to monitor closely; likely will not be able to achieve good control given labile BSGs and snacking. Will continue with more conservative insulin dosing with focus to prevent hypoglycemia. 01/15: * BSGs [phone]/dL. Fasting BSG elevated at 222mg/dL this AM. Received 22 units of basal and 47 units of Novolog yesterday. * Continues on dex 40mg PO daily, tolerating diet * Continue slow titration of Lantus - 12 units BID today. No change to Novolog parameters 01/14: * BSGs continue to be elevated, improved throughout the day yesterday * Will continue current Novolog parameters * Steroid-induced hyperglycemia (continues on dexamethasone 4 mg PO daily) * Persistently elevated fasting BSGs, 285 mg/dL this morning - will continue to increase Lantus today * Patient will need significant reduction in insulin doses once steroids are discontinued 01/12: * BSGs [phone]/dL the last 24h. Received 16 units of basal and 48 units of bolus insulin yesterday. * Continues on PO dex and tolerating diet. * Given elevated fasting this AM, scheduled Lantus 9 units BID today. Novolog tightened last evening to 30/9 and tightened again today with lunch to 25/8. Will continue to closely monitor. 01/11: * BSGs extremely labile since initiation of steroids: [phone]/dL. Received 16 units of basal and 47 units of bolus insulin yesterday which is approximately 3X his normal overall daily requirement. * Continues on dexamethasone 4mg PO daily and tolerating diet. * Continue with Lantus sliding scale BID based upon BSG and titrate conservatively. Novolog tightened slightly to 30/10 to help with prandial BSG coverage. Will continue to monitor closely given tenuous glycemic status. 01/10: * 56 yo M w T1DM well known to pharmacy glycemic service admitted. Patient has historically labile BSGs while inpatient (hypo/hyperglycemia). * Complicated PMH includes ESRD, T1DM, and left Non-small cell lung cancer with mets to bone * Admitted 01/03 for hypertensive crisis. Palliative discussion on 01/08 - patient not yet ready to transition to hospice. Poor prognosis noted. Dexamethasone started. * BSG's were moderately well controlled for this patient (given history of labile BSG's) earlier in admission, but pharmacy consulted for glycemic management on 01/10 2nd AM fasting BSG >400 mg/dL, likely precipitated by dexamethasone which started on 01/09 * No prior history of being on steroids, but known labile BSG's. Will attempt to maintain on basal/bolus, but patient may require temporary insulin drip while steroid effects on BSG's are determined/assessed. Will increase Lantus and tighten Novolog parameters. PLAN FOR INPATIENT GLYCEMIC CONTROL: * Basal insulin * Lantus 8 units SC this AM, 0/4/8 this evening * Bolus insulin * NovoLog per scale ACHS or Q6hrs while NPO * Goal Range: Low 120 mg/dL - High 160 mg/dL * Correction Factor: 40 mg/dL/unit * Nutritional / Prandial insulin per carb ratio of 1 unit per 10 grams CHO consumed (max 13 units)
[2022-01-19] MEDS: PATIROMER CALCIUM SORBITEX 8.4 GM PACK PO SCH (14:41)
--- NOTE | 2022-01-19 16:55 | Hospitalist Progress Note ---
Date of Service January 19, 2022 Assessment & Plan (1) Chest pain: Plan: (1) Chest pain: Secondary to carcinoma of the lung Chest pain is atypical mostly due to metastatic disease CT chest 01/07/22 showed new bony lesions at T8, left 8th rib as well as T5-6, stable destructive lesion on left 9th rib, interval enlargement of left axillary node and stable Left upper pleural based mass Trop is normal. No ACS on EKG. Echo noted normal LV size with moderate concentric LVH without segmental wall motion abnormalities, EF of 55 to 60%. Continue carvedilol Continue po Dilaudid and fentanyl patch Lidocaine patch added for each shoulder Pain has been increasing Will increase fentanyl patch 100 mcg and will keep Dilaudid as it is Pain has not been controlled with oral Dilaudid Will discontinue Dilaudid and start with morphine IR 15 mg Q6 hourly as needed Reassured that pain will be controlled History of COPD Metastatic NSCLC status post surgery, radiation/incomplete chemotherapy secondary to intolerance Patient not a candidate for additional treatment as per recent outpatient Oncology note No acute shortness of breath and or wheezing (2) Primary cancer of left lung metastatic to other site: On 01/08/22, Previous hospitalist spoke with patient's Oncologist, Dr Lion Keith who stated no further treatment/chemo is recommended. Palliative on board Patient is not ready to transition to hospice, stated he has somethings to take care of before that. He understands prognosis is poor. Wants to continue full code for now until he is ready Radiation oncology on board S/P CT simulation for treatment planning to initiate radiation therapy Next radiation therapy schedule for tomorrow Continue dexamethasone-to milligram from 01/17/2022 for 1 week and then 1 mg for next week Palliative made referral [facility] Palliative who will follow up with patient. Case discussed with Palliative that recommended not to increase the fentanyl patch due to risk of opioid toxicity on ESRD patient Continue Low dose of IV Dialudid 0.5 IV prn q12h while inpatient Will increase fentanyl patch 100 micrograms every 3 days Discussed with the palliative care-she has no other ways to help the patient as long as he is on dialysis and hospice will not cover that He still has 5 treatments of radiation and following that he will need to continue with outpatient dialysis We will discussed with the case coordinator for placement (3) Hypertensive crisis: Presenting as headache and chest pain symptoms ?Hypertensive emergency Patient reports chronic intermittent generalized body pains for which he is on opioids (confirmed on PDMP) Concern for possible poor med adherence considering recurrent admissions; likely complicated by nausea/vomiting related to gastroparesis Continue lisinopril, clonidine Continue amlodipine and carvedilol started during this visit BP remains at the upper side and 167/93 as of today (4) Wound of left foot: CT foot does not show any osteomyelitis Related to dropfoot brace which was quite tight Ortho eval appreciated Wound care while inpatient Reports 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 If worsening, will consider to get an u/s of LUE Clinically improved significantly (5) Intractable nausea and vomiting: (6) Gastroparesis: History of IBD, gastroparesis status post gastric pacemaker, symptoms better after recent pacemaker adjustment Continue antiemetics prn Hyperkalemia Mostly due to ESRD Potassium 5.9 today Case discussed with nephrology Pt had a 2 HR HD today- next HD tomorrow Continue monitor BMP -5.3 today and has been on dialysis (7) ESRD (end stage renal disease) on dialysis: Nephrology on board Schedule for HD on // Pt had 2hr HD today Next HD schedule for Saturday (8) DM type 1 (diabetes mellitus, type 1): Recent hemoglobin A1c of 9.1 last October 2021 He had an episode of hypoglycemia today Currently on Lantus and novolog sliding scale Pharmacy on board for glycemic management Continue monitor BS closely while on Dexamethasone Blood sugar has been running high and will cover as needed with insulin Chronic anemia Worsening anemia. No obvious blood loss S/p 1 PRBC with HD on 01/05/22 Hbg is 7.9 today Continue monitor cbc Seizure disorder, stable on regimen DVT ppx no heparin subq due to low hgb Admission and Anticipated Discharge Date Admission Date: January 04, 2022 Subjective 01/17/2022 The patient was seen and examined in telemetry unit He complains to have pain and cough with black phlegm Associated with minimal shortness of breath but has not been requiring any oxygen At times he screams with the pain with nagging constant pain all the time Remains unsteady on feet 01/18/2022 The patient was seen and examined in telemetry unit His pain seems to be reasonably controlled today Denies any shortness of breath at rest Remains unsteady on feet 01/19/2022 The patient was seen and examined in telemetry unit He has been complaining of pain His medications was recently changed Denies any shortness of breath, any fever and or chills Review of Systems Review of Systems: All systems reviewed and are unremarkable except as noted below Respiratory: No shortness of breath but has cough and chest pain Physical Exam Physical Exam: Sitting at the edge of the bed without any acute distress Constitutional: well developed, well nourished, + ill appearing and average body habitus Eyes: PERRL, conjunctivae normal, anicteric sclerae ENMT: external ear and nose normal, oropharynx normal Neck: trachea midline, no thyromegaly Respiratory: no respiratory distress Auscultation: + diminished lung sounds and + crackles (Left lung) Cardiovascular: Rate/Rhythm: regular rate and regular rhythm; not tachycardic Heart Sounds: normal S1 and normal S2; no murmur Extremities: + edema (1-2+ edema bilaterally.) Gastrointestinal (Abdomen): Inspection/Auscultation: normal bowel sounds; abdomen not distended Percussion/Palpation: abdomen soft; abdomen nontender Psychiatric: A+Ox3, euthymic affect Lymphatic: no cervical or axillary lymphadenopathy Results & Data Results & Data ([facility]) Vital Signs (Past 12 Hours) Vital Signs Temp Pulse Pulse Pulse Resp BP BP 01/19/22 16:12 36.6 C 92 H 18 155/72 H 01/19/22 14:30 89 01/19/22 12:30 36.7 C 82 105/66 01/19/22 12:00 82 120/62 01/19/22 11:30 85 112/68 01/19/22 11:00 56 L 121/91 01/19/22 10:30 90 110/48 L 01/19/22 10:00 104 H 109/61 01/19/22 09:30 84 106/56 L 01/19/22 09:00 86 94/68 L 01/19/22 08:00 01/19/22 08:00 88 01/19/22 08:35 36.8 C 86 01/19/22 07:57 36.8 C 88 18 118/68 Pulse Ox O2 Del Method 01/19/22 16:12 96 01/19/22 14:30 01/19/22 12:30 01/19/22 12:00 01/19/22 11:30 01/19/22 11:00 01/19/22 10:30 01/19/22 10:00 01/19/22 09:30 01/19/22 09:00 01/19/22 08:00 Room Air 01/19/22 08:00 01/19/22 08:35 01/19/22 07:57 92 Room Air Medications Administered Current Inpatient Medications Acetaminophen (Acetaminophen 325 Mg Tab) 650 mg PO Q6H DAMIR Stop: 02/03/22 15:29 Last Admin: 01/19/22 15:31 Dose: 650 mg Amlodipine Besylate (Amlodipine Besylate 5 Mg Tab) 10 mg PO HS DMAIR Stop: 02/03/22 20:59 Last Admin: 01/18/22 20:57 Dose: 10 mg Benzonatate (Benzonatate 100 Mg Capsule) 100 mg PO TID PRN PRN Reason: Cough Stop: 02/16/22 06:19 Carvedilol (Carvedilol 6.25 Mg Tab) 6.25 mg PO BID DAMIR Stop: 02/03/22 20:59 Last Admin: 01/19/22 08:15 Dose: 6.25 mg Clonidine HCl (Clonidine Hcl 0.2 Mg/24 Hr Transderm Sys) 1 patch TD Q7D@0000 DAMIR Stop: 02/18/22 00:00 Last Admin: 01/19/22 00:24 Dose: 1 patch Dexamethasone (Dexamethasone 1 Mg Tab) 2 mg PO DAILY DAMIR Stop: 02/16/22 08:59 Last Admin: 01/19/22 08:17 Dose: 2 mg Dextrose (Dextrose 50% 50 Ml Syringe) 25 - 50 ml IV UD PRN; Protocol PRN Reason: Hypoglycemia Protocol Stop: 02/03/22 01:23 Last Admin: 01/15/22 15:14 Dose: 50 ml Fentanyl (Fentanyl 100 Mcg/Hr Tdsy) 100 mcg TD Q3D@0000 DAMIR Stop: 02/02/22 00:00 Last Admin: 01/19/22 00:24 Dose: 100 mcg Fluticasone/Vilanterol (Fluticasone/Vilanterol 200/25mcg 14 Puffs/Inhaler) 1 puffs INH DAILY DAMIR Stop: 02/03/22 08:59 Last Admin: 01/19/22 08:20 Dose: 1 puffs Gabapentin (Gabapentin 400 Mg Cap) 400 mg PO TID [facility] Stop: 02/13/22 04:39 Last Admin: 01/19/22 14:41 Dose: 400 mg Glucagon (Glucagon For Inj 1 Mg Vial) 1 mg SQ UD PRN; Protocol PRN Reason: Hypoglycemia Protocol Stop: 02/03/22 01:23 Glucose (Glucose 40% Gel 15 Gm Tube) 15 - 30 gm PO UD PRN; Protocol PRN Reason: Hypoglycemia Protocol Stop: 02/03/22 01:23 Glucose (Glucose 10 Tab/Tube) 4 - 8 tab PO UD PRN; Protocol PRN Reason: Hypoglycemia Treatment Stop: 02/03/22 01:23 Guaifenesin (Guaifenesin 600 Mg Tabcr) 600 mg PO Q12 [facility] Stop: 02/16/22 06:19 Last Admin: 01/19/22 08:17 Dose: 600 mg Heparin Sodium (Porcine) (Heparin Sod 5,000 Unit/0.5 Ml Vial) 5,000 units SQ Q12 DAMIR Stop: 02/03/22 20:59 Last Admin: 01/04/22 21:05 Dose: 5,000 units Heparin Sodium (Porcine) (Heparin 100 Unit/Ml 5ml Flush) 5 ml FLUSH PRN PRN PRN Reason: Flush Stop: 02/05/22 10:09 Last Admin: 01/11/22 12:38 Dose: 5 ml Hydromorphone HCl (Hydromorphone Inj 0.5 Mg/0.5 Ml Syr) 0.5 mg IV Q12H PRN PRN Reason: Severe Pain Stop: 01/26/22 13:45 Last Admin: 01/19/22 15:28 Dose: 0.5 mg Promethazine HCl 12.5 mg/ (Sodium Chloride) 50.5 mls @ 202 mls/hr IV Q6H PRN PRN Reason: Nausea And Vomiting Stop: 02/02/22 23:13 Last Infusion: 01/07/22 13:45 Dose: Infused Insulin Aspart (Insulin Aspart Per Unit) 0 units SC ACHS [facility] Stop: 02/14/22 06:44 Last Admin: 01/19/22 16:32 Dose: 5 units Insulin Glargine (Lantus Per Unit Charge) 3 units SQ HS [facility]; Protocol Stop: 10/16/22 08:59 Lactobacillus Acidophilus (Advanced Probiotic 1250 Mg Capsule) 2 cap PO DAILY [facility] Stop: 02/03/22 08:59 Last Admin: 01/19/22 08:18 Dose: 2 cap Levetiracetam (Levetiracetam 250 Mg Tab) 750 mg PO BID [facility] Stop: 02/03/22 08:59 Last Admin: 01/19/22 08:19 Dose: 750 mg Lidocaine (Lidocaine 5% 1 Patch) 2 patch TD QAM [facility] Stop: 02/11/22 10:44 Last Admin: 01/19/22 08:19 Dose: 2 patch Lisinopril (Lisinopril 40 Mg Tab) 40 mg PO QAM [facility] Stop: 02/03/22 01:29 Last Admin: 01/14/22 09:21 Dose: 40 mg Lorazepam (Lorazepam 0.5 Mg Tab) 0.5 mg PO HS PRN PRN Reason: Anxiety, sleep Stop: 02/06/22 20:26 Last Admin: 01/19/22 00:35 Dose: 0.5 mg Menthol (Cough Drop (Sugar Free) Marito 24 Marito/1 Box) 1 marito BUCCAL Q2H PRN PRN Reason: Sore Throat Stop: 02/16/22 06:19 Metoclopramide HCl (Metoclopramide Hcl 5 Mg Tablet) 5 mg PO DAILY [facility] Stop: 02/03/22 08:59 Last Admin: 01/19/22 08:19 Dose: 5 mg Miscellaneous (Carbohydrates For Hypoglycemia ) 15 - 30 gm PO UD PRN PRN Reason: Hypoglycemia Protocol Stop: 02/03/22 01:23 Last Admin: 01/18/22 09:31 Dose: 30 gm Miscellaneous (Remove Nicoderm Patch) 1 each N/A DAILY@0859 [facility] Stop: 02/05/22 08:58 Last Admin: 01/19/22 08:21 Dose: 1 each Miscellaneous (Remove Lidoderm Patch) 1 each N/A DAILY@2100 [facility] Stop: 02/10/22 04:59 Last Admin: 01/18/22 21:07 Dose: 1 each Miscellaneous (Remove Clonidine Patch) 1 each N/A CQWK@2359 [facility] Stop: 02/17/22 23:58 Last Admin: 01/19/22 00:00 Dose: 1 each Miscellaneous (Check Clonidine Patch Placement) 1 each N/A QS [facility] Stop: 02/18/22 00:00 Last Admin: 01/19/22 15:36 Dose: 1 each Miscellaneous (Fentanyl Patch Remove & Waste) 1 each N/A Q3D@2359 [facility] Stop: 02/17/22 23:58 Last Admin: 01/19/22 00:26 Dose: 1 each Miscellaneous (Check Fentanyl Patch Placement) 1 each N/A QS [facility] Stop: 02/18/22 00:00 Last Admin: 01/19/22 15:36 Dose: 1 each Miscellaneous Information (Pharmacy Glycemic Mgmt Consult) 1 each N/A UD PRN PRN Reason: Consult Stop: 02/09/22 08:21 Morphine Sulfate (Morphine Sulfate Ir 15 Mg Tab (Immediate Release)) 15 mg PO Q6H PRN PRN Reason: Pain Stop: 02/01/22 17:06 Last Admin: 01/19/22 14:48 Dose: 15 mg Nicotine (Nicotine 14 Mg/24 Hr Patch) 14 mg TD QAM [facility] Stop: 02/04/22 15:59 Last Admin: 01/19/22 08:15 Dose: 14 mg Olanzapine (Olanzapine 2.5 Mg Tab) 2.5 mg PO HS [facility] Stop: 02/03/22 01:23 Last Admin: 01/18/22 20:57 Dose: 2.5 mg Pantoprazole Sodium (Pantoprazole 40 Mg Tab) 40 mg PO QAM [facility] Stop: 02/03/22 08:59 Last Admin: 01/19/22 08:15 Dose: 40 mg Patiromer (Patiromer Calcium Sorbitex 8.4 Gm Pack) 16.8 gm PO DAILY@1100 [facility] Stop: 02/17/22 10:59 Last Admin: 01/19/22 14:41 Dose: 16.8 gm Senna/Docusate Sodium (Docusate Sodium/Senna 50/8.6mg Tab) 2 tab PO BID [facility] Stop: 02/10/22 08:59 Last Admin: 01/19/22 08:17 Dose: Not Given (1) Chest pain Chest pain type: unspecified Qualified Code(s): R07.9 - Chest pain, unspecified
[2022-01-19] MEDS: amLODIPine BESYLATE 5 MG TAB PO SCH (20:39)
--- NOTE | 2022-01-19 20:42 | Dialysis Progress Note ---
Date of Service January 19, 2022 Assessment & Plan (1) ESRD (end stage renal disease) on dialysis: Plan: tolerating HD today; has been having issues w/ recurrent hyperkalemia defer to primary for mgt of pain next HD on 01/22 or as needs dictate transfuse PRN; not an al candidate >would check hgb, bmp daily -recently placed AVF maturing appropirately per vascular >started veltassa today after HD and daily Admission and Anticipated Discharge Date Admission Date: January 04, 2022 Subjective The patient was seen and examined in dialysis unit Pain better Denies any shortness of breath, any fever and or chills Review of Systems Review of Systems: All systems reviewed & are unremarkable except as noted in HPI & below pedal edema better no shortness of breath Physical Exam Physical Exam: Eyes- anicteric Neck- no JVD Lungs- clear breath sounds bilaterally, no rales/wheezes Heart- normal rate, regular rhythm; no murmurs Abdomen- normal bowel sounds, nondistended, soft, nontender No CVA tenderness Extremities- 1+pretibial edema, no calf tenderness Neuro- alert, oriented x 3; no gross focal neurologic deficits Skin- warm & dr Results & Data ([facility]) Vital Signs (Past 12 Hours) Vital Signs Temp Pulse Pulse Pulse Resp BP BP 01/19/22 18:52 36.6 C 90 20 132/72 01/19/22 16:12 36.6 C 92 H 18 155/72 H 01/19/22 14:30 89 01/19/22 12:30 36.7 C 82 105/66 01/19/22 12:00 82 120/62 01/19/22 11:30 85 112/68 01/19/22 11:00 56 L 121/91 01/19/22 10:30 90 110/48 L 01/19/22 10:00 104 H 109/61 01/19/22 09:30 84 106/56 L 01/19/22 09:00 86 94/68 L Pulse Ox O2 Del Method 01/19/22 18:52 94 Room Air 01/19/22 16:12 96 01/19/22 14:30 01/19/22 12:30 01/19/22 12:00 01/19/22 11:30 01/19/22 11:00 01/19/22 10:30 01/19/22 10:00 01/19/22 09:30 01/19/22 09:00 Laboratory Results 01/18/22 08:04 01/18/22 08:04
[2022-01-19] MEDS: OLANZAPINE 2.5 MG TAB PO SCH (20:44)
[2022-01-20] MEDS: MoRPHine SULFATE IR 15 MG TAB (IMMEDIATE RELEASE) PO PRN ×4 (03:08→21:48)
[2022-01-20] MEDS: ACETAMINOPHEN 325 MG TAB PO SCH ×4 (03:47→20:30)
[2022-01-20] MEDS: LORazepam 0.5 MG TAB PO PRN (03:47)
[2022-01-20] MEDS: HYDROmorphone INJ 0.5 MG/0.5 ML SYR IV PRN ×3 (03:48→20:37)
[2022-01-20] MEDS: LANTUS PER UNIT CHARGE SQ SCH ×2 (09:03→20:57)
[2022-01-20] MEDS: INSULIN ASPART PER UNIT SC SCH ×4 (09:04→20:31)
[2022-01-20] MEDS: FLUTICASONE/VILANTEROL 200/25MCG 14 PUFFS/INHALER INH SCH (09:05)
[2022-01-20] MEDS: LIDOCAINE 5% 1 PATCH TD SCH (09:05)
[2022-01-20] MEDS: PANTOprazole 40 MG TAB PO SCH (09:06)
[2022-01-20] MEDS: guaiFENesin 600 MG TABCR PO SCH ×2 (09:06→20:29)
[2022-01-20] MEDS: DOCUSATE SODIUM/SENNA 50/8.6MG TAB PO SCH ×2 (09:07→20:29)
[2022-01-20] MEDS: dexAMETHasone 1 MG TAB PO SCH (09:07)
[2022-01-20] MEDS: levETIRAcetam 250 MG TAB PO SCH ×2 (09:07→20:28)
[2022-01-20] MEDS: ADVANCED PROBIOTIC 1250 MG CAPSULE PO SCH (09:08)
[2022-01-20] MEDS: carvediloL 6.25 MG TAB PO SCH ×2 (09:08→20:28)
[2022-01-20] MEDS: METOCLOPRAMIDE HCL 5 MG TABLET PO SCH (09:08)
[2022-01-20] MEDS: GABAPENTIN 400 MG CAP PO SCH ×3 (09:08→20:29)
[2022-01-20] MEDS: NICOTINE 14 MG/24 HR PATCH TD SCH (09:09)
[2022-01-20] MEDS: CHECK CLONIDINE PATCH PLACEMENT SCH ×2 (09:10→15:30)
[2022-01-20] MEDS: CHECK fentaNYL PATCH PLACEMENT SCH ×2 (09:10→15:30)
[2022-01-20] MEDS: PATIROMER CALCIUM SORBITEX 8.4 GM PACK PO SCH (11:28)
[2022-01-20] MEDS: HEPARIN 100 UNIT/ML 5ML FLUSH FLUSH PRN ×2 (12:54→12:56)
--- NOTE | 2022-01-20 14:23 | Hospitalist Progress Note ---
Date of Service January 20, 2022 Assessment & Plan (1) Chest pain: Plan: (1) Chest pain: Secondary to carcinoma of the lung Chest pain is atypical mostly due to metastatic disease CT chest 01/07/22 showed new bony lesions at T8, left 8th rib as well as T5-6, stable destructive lesion on left 9th rib, interval enlargement of left axillary node and stable Left upper pleural based mass Trop is normal. No ACS on EKG. Echo noted normal LV size with moderate concentric LVH without segmental wall motion abnormalities, EF of 55 to 60%. Continue carvedilol Continue po Dilaudid and fentanyl patch Lidocaine patch added for each shoulder Pain has been increasing Will increase fentanyl patch 100 mcg and will keep Dilaudid as it is Pain has not been controlled with oral Dilaudid Will discontinue Dilaudid and start with morphine IR 15 mg Q6 hourly as needed Reassured that pain will be controlled Will adjust the pain medications as needed History of COPD Metastatic NSCLC status post surgery, radiation/incomplete chemotherapy secondary to intolerance Patient not a candidate for additional treatment as per recent outpatient Oncology note No acute shortness of breath and or wheezing (2) Primary cancer of left lung metastatic to other site: On 01/08/22, Previous hospitalist spoke with patient's Oncologist, Dr Lion Keith who stated no further treatment/chemo is recommended. Palliative on board Patient is not ready to transition to hospice, stated he has somethings to take care of before that. He understands prognosis is poor. Wants to continue full code for now until he is ready Radiation oncology on board S/P CT simulation for treatment planning to initiate radiation therapy Next radiation therapy schedule for tomorrow Continue dexamethasone-to milligram from 01/17/2022 for 1 week and then 1 mg for next week Palliative made referral to [facility] Palliative who will follow up with patient. Case discussed with Palliative that recommended not to increase the fentanyl patch due to risk of opioid toxicity on ESRD patient Continue Low dose of IV Dialudid 0.5 IV prn q12h while inpatient Will increase fentanyl patch 100 micrograms every 3 days Discussed with the palliative care-she has no other ways to help the patient as long as he is on dialysis and hospice will not cover that He still has 5 treatments of radiation and following that he will need to continue with outpatient dialysis No acute respiratory symptoms (3) Hypertensive crisis: Presenting as headache and chest pain symptoms ?Hypertensive emergency Patient reports chronic intermittent generalized body pains for which he is on opioids (confirmed on PDMP) Concern for possible poor med adherence considering recurrent admissions; likely complicated by nausea/vomiting related to gastroparesis Continue lisinopril, clonidine Continue amlodipine and carvedilol started during this visit BP remains at the upper side and 167/93 as of today (4) Wound of left foot: CT foot does not show any osteomyelitis Related to dropfoot brace which was quite tight Ortho eval appreciated Wound care while inpatient Reports he already made appt with a coal chemist NAKULE swelling and ecchymosis Pt said that swelling and ecchymosis improved. 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 No obvious blood loss S/p 1 PRBC with HD on 01/05/22 Hbg is 7.9 today Continue monitor cbc Seizure disorder, stable on regimen DVT ppx no heparin subq due to low hgb Admission and Anticipated Discharge Date Admission Date: January 04, 2022 Subjective 01/17/2022 The patient was seen and examined in telemetry unit He complains to have pain and cough with black phlegm Associated with minimal shortness of breath but has not been requiring any oxygen At times he screams with the pain with nagging constant pain all the time Remains unsteady on feet 01/18/2022 The patient was seen and examined in telemetry unit His pain seems to be reasonably controlled today Denies any shortness of breath at rest Remains unsteady on feet 01/19/2022 The patient was seen and examined in telemetry unit He has been complaining of pain His medications was recently changed Denies any shortness of breath, any fever and or chills 01/20/2022 The patient was seen and examined in telemetry unit Still complains to have pain and cannot sleep at night His IV pain medications are changed Review of Systems Review of Systems: All systems reviewed and are unremarkable except as noted below Respiratory: No shortness of breath but has cough and chest pain Physical Exam Physical Exam: Sitting at the edge of the bed without any acute distress Constitutional: well developed, well nourished, + ill appearing and average body habitus Eyes: PERRL, conjunctivae normal, anicteric sclerae ENMT: external ear and nose normal, oropharynx normal Neck: trachea midline, no thyromegaly Respiratory: no respiratory distress Auscultation: + diminished lung sounds and + crackles (Left lung) Cardiovascular: Rate/Rhythm: regular rate and regular rhythm; not tachycardic Heart Sounds: normal S1 and normal S2; no murmur Extremities: + edema (1-2+ edema bilaterally.) Gastrointestinal (Abdomen): Inspection/Auscultation: normal bowel sounds; abdomen not distended Percussion/Palpation: abdomen soft; abdomen nontender Musculoskeletal: No acute arthritis in any joint Neurologic: Alert, awake and oriented x3 Psychiatric: A+Ox3, euthymic affect Lymphatic: no cervical or axillary lymphadenopathy Results & Data Results & Data ([facility]) Vital Signs (Past 12 Hours) Vital Signs Temp Pulse Pulse Resp BP Pulse Ox O2 Del Method 01/20/22 12:48 109/68 95 Nasal Cannula 01/20/22 11:04 36.7 C 85 18 115/66 93 Room Air 01/20/22 10:31 Room Air 01/20/22 07:54 88 01/20/22 07:12 36.7 C 81 18 116/64 90 Room Air 01/20/22 02:27 36.4 C L 80 16 110/65 91 Room Air O2 Flow Rate 01/20/22 12:48 3 01/20/22 11:04 01/20/22 10:31 01/20/22 07:54 01/20/22 07:12 01/20/22 02:27 Medications Administered Current Inpatient Medications Acetaminophen (Acetaminophen 325 Mg Tab) 650 mg PO Q6H DAMIR Stop: 02/03/22 15:29 Last Admin: 01/20/22 09:06 Dose: 650 mg Amlodipine Besylate (Amlodipine Besylate 5 Mg Tab) 10 mg PO HS DAMIR Stop: 02/03/22 20:59 Last Admin: 01/19/22 20:39 Dose: 10 mg Benzonatate (Benzonatate 100 Mg Capsule) 100 mg PO TID PRN PRN Reason: Cough Stop: 02/16/22 06:19 Carvedilol (Carvedilol 6.25 Mg Tab) 6.25 mg PO BID DAMIR Stop: 02/03/22 20:59 Last Admin: 01/20/22 09:08 Dose: 6.25 mg Clonidine HCl (Clonidine Hcl 0.2 Mg/24 Hr Transderm Sys) 1 patch TD Q7D@0000 DAMIR Stop: 02/18/22 00:00 Last Admin: 01/19/22 00:24 Dose: 1 patch Dexamethasone (Dexamethasone 1 Mg Tab) 2 mg PO DAILY DAMIR Stop: 02/16/22 08:59 Last Admin: 01/20/22 09:07 Dose: 2 mg Dextrose (Dextrose 50% 50 Ml Syringe) 25 - 50 ml IV UD PRN; Protocol PRN Reason: Hypoglycemia Protocol Stop: 02/03/22 01:23 Last Admin: 01/15/22 15:14 Dose: 50 ml Fentanyl (Fentanyl 100 Mcg/Hr Tdsy) 100 mcg TD Q3D@0000 DAMIR Stop: 02/02/22 00:00 Last Admin: 01/19/22 00:24 Dose: 100 mcg Fluticasone/Vilanterol (Fluticasone/Vilanterol 200/25mcg 14 Puffs/Inhaler) 1 puffs INH DAILY DAMIR Stop: 02/03/22 08:59 Last Admin: 01/20/22 09:05 Dose: 1 puffs Gabapentin (Gabapentin 400 Mg Cap) 400 mg PO TID DAMIR Stop: 02/13/22 04:39 Last Admin: 01/20/22 09:08 Dose: 400 mg Glucagon (Glucagon For Inj 1 Mg Vial) 1 mg SQ UD PRN; Protocol PRN Reason: Hypoglycemia Protocol Stop: 02/03/22 01:23 Glucose (Glucose 40% Gel 15 Gm Tube) 15 - 30 gm PO UD PRN; Protocol PRN Reason: Hypoglycemia Protocol Stop: 02/03/22 01:23 Glucose (Glucose 10 Tab/Tube) 4 - 8 tab PO UD PRN; Protocol PRN Reason: Hypoglycemia Treatment Stop: 02/03/22 01:23 Guaifenesin (Guaifenesin 600 Mg Tabcr) 600 mg PO Q12 DAMIR Stop: 02/16/22 06:19 Last Admin: 01/20/22 09:06 Dose: 600 mg Heparin Sodium (Porcine) (Heparin Sod 5,000 Unit/0.5 Ml Vial) 5,000 units SQ Q12 DAMIR Stop: 02/03/22 20:59 Last Admin: 01/04/22 21:05 Dose: 5,000 units Heparin Sodium (Porcine) (Heparin 100 Unit/Ml 5ml Flush) 5 ml FLUSH PRN PRN PRN Reason: Flush Stop: 02/05/22 10:09 Last Admin: 01/20/22 12:56 Dose: 5 ml Hydromorphone HCl (Hydromorphone Inj 0.5 Mg/0.5 Ml Syr) 0.5 mg IV Q6H PRN PRN Reason: Severe Pain Stop: 01/26/22 13:45 Last Admin: 01/20/22 12:54 Dose: 0.5 mg Promethazine HCl 12.5 mg/ (Sodium Chloride) 50.5 mls @ 202 mls/hr IV Q6H PRN PRN Reason: Nausea And Vomiting Stop: 02/02/22 23:13 Last Infusion: 01/07/22 13:45 Dose: Infused Insulin Aspart (Insulin Aspart Per Unit) 0 units SC ACHS [facility] Stop: 02/14/22 06:44 Last Admin: 01/20/22 12:53 Dose: 1 units Insulin Glargine (Lantus Per Unit Charge) 5 units SQ QAM [facility]; Protocol Stop: 02/19/22 08:59 Last Admin: 01/20/22 09:03 Dose: 5 units Insulin Glargine (Lantus Per Unit Charge) 3 units SQ HS [facility]; Protocol Stop: 02/19/22 20:59 Lactobacillus Acidophilus (Advanced Probiotic 1250 Mg Capsule) 2 cap PO DAILY DAMIR Stop: 02/03/22 08:59 Last Admin: 01/20/22 09:08 Dose: 2 cap Levetiracetam (Levetiracetam 250 Mg Tab) 750 mg PO BID [facility] Stop: 02/03/22 08:59 Last Admin: 01/20/22 09:07 Dose: 750 mg Lidocaine (Lidocaine 5% 1 Patch) 2 patch TD QAM [facility] Stop: 02/11/22 10:44 Last Admin: 01/20/22 09:05 Dose: 2 patch Lisinopril (Lisinopril 40 Mg Tab) 40 mg PO QAM [facility] Stop: 02/03/22 01:29 Last Admin: 01/14/22 09:21 Dose: 40 mg Lorazepam (Lorazepam 0.5 Mg Tab) 0.5 mg PO HS PRN PRN Reason: Anxiety, sleep Stop: 02/06/22 20:26 Last Admin: 01/20/22 03:47 Dose: 0.5 mg Menthol (Cough Drop (Sugar Free) Marito 24 Marito/1 Box) 1 marito BUCCAL Q2H PRN PRN Reason: Sore Throat Stop: 02/16/22 06:19 Metoclopramide HCl (Metoclopramide Hcl 5 Mg Tablet) 5 mg PO DAILY [facility] Stop: 02/03/22 08:59 Last Admin: 01/20/22 09:08 Dose: 5 mg Miscellaneous (Carbohydrates For Hypoglycemia ) 15 - 30 gm PO UD PRN PRN Reason: Hypoglycemia Protocol Stop: 02/03/22 01:23 Last Admin: 01/18/22 09:31 Dose: 30 gm Miscellaneous (Remove Nicoderm Patch) 1 each N/A DAILY@0859 [facility] Stop: 02/05/22 08:58 Last Admin: 01/20/22 09:11 Dose: 1 each Miscellaneous (Remove Lidoderm Patch) 1 each N/A DAILY@2100 [facility] Stop: 02/10/22 04:59 Last Admin: 01/19/22 20:44 Dose: 1 each Miscellaneous (Remove Clonidine Patch) 1 each N/A CQWK@2359 [facility] Stop: 02/17/22 23:58 Last Admin: 01/19/22 00:00 Dose: 1 each Miscellaneous (Check Clonidine Patch Placement) 1 each N/A QS [facility] Stop: 02/18/22 00:00 Last Admin: 01/20/22 09:10 Dose: 1 each Miscellaneous (Fentanyl Patch Remove & Waste) 1 each N/A Q3D@2359 [facility] Stop: 02/17/22 23:58 Last Admin: 01/19/22 00:26 Dose: 1 each Miscellaneous (Check Fentanyl Patch Placement) 1 each N/A QS [facility] Stop: 02/18/22 00:00 Last Admin: 01/20/22 09:10 Dose: 1 each Miscellaneous Information (Pharmacy Glycemic Mgmt Consult) 1 each N/A UD PRN PRN Reason: Consult Stop: 02/09/22 08:21 Morphine Sulfate (Morphine Sulfate Ir 15 Mg Tab (Immediate Release)) 15 mg PO Q6H PRN PRN Reason: Pain Stop: 02/01/22 17:06 Last Admin: 01/20/22 09:16 Dose: 15 mg Nicotine (Nicotine 14 Mg/24 Hr Patch) 14 mg TD QAM [facility] Stop: 02/04/22 15:59 Last Admin: 01/20/22 09:09 Dose: 14 mg Olanzapine (Olanzapine 2.5 Mg Tab) 2.5 mg PO HS [facility] Stop: 02/03/22 01:23 Last Admin: 01/19/22 20:44 Dose: 2.5 mg Pantoprazole Sodium (Pantoprazole 40 Mg Tab) 40 mg PO QAM [facility] Stop: 02/03/22 08:59 Last Admin: 01/20/22 09:06 Dose: 40 mg Patiromer (Patiromer Calcium Sorbitex 8.4 Gm Pack) 16.8 gm PO DAILY@1100 [facility] Stop: 02/17/22 10:59 Last Admin: 01/20/22 11:28 Dose: 16.8 gm Senna/Docusate Sodium (Docusate Sodium/Senna 50/8.6mg Tab) 2 tab PO BID [facility] Stop: 02/10/22 08:59 Last Admin: 01/20/22 09:07 Dose: 2 tab (1) Chest pain Chest pain type: unspecified Qualified Code(s): R07.9 - Chest pain, unspecified
[2022-01-20] MEDS: amLODIPine BESYLATE 5 MG TAB PO SCH (20:27)
[2022-01-20] MEDS: OLANZAPINE 2.5 MG TAB PO SCH (20:28)
[2022-01-21] MEDS: CHECK CLONIDINE PATCH PLACEMENT SCH ×3 (00:32→15:44)
[2022-01-21] MEDS: CHECK fentaNYL PATCH PLACEMENT SCH ×3 (00:32→15:44)
[2022-01-21] MEDS: ACETAMINOPHEN 325 MG TAB PO SCH ×4 (04:00→21:23)
[2022-01-21] MEDS: MoRPHine SULFATE IR 15 MG TAB (IMMEDIATE RELEASE) PO PRN ×2 (05:26→15:33)
[2022-01-21] MEDS: DOCUSATE SODIUM/SENNA 50/8.6MG TAB PO SCH ×2 (08:17→20:29)
[2022-01-21] MEDS: guaiFENesin 600 MG TABCR PO SCH ×2 (08:19→20:29)
[2022-01-21] MEDS: METOCLOPRAMIDE HCL 5 MG TABLET PO SCH (08:19)
[2022-01-21] MEDS: PANTOprazole 40 MG TAB PO SCH (08:19)
[2022-01-21] MEDS: GABAPENTIN 400 MG CAP PO SCH ×3 (08:19→20:28)
[2022-01-21] MEDS: carvediloL 6.25 MG TAB PO SCH ×2 (08:20→20:27)
[2022-01-21] MEDS: levETIRAcetam 250 MG TAB PO SCH ×2 (08:20→20:29)
[2022-01-21] MEDS: dexAMETHasone 1 MG TAB PO SCH (08:20)
[2022-01-21] MEDS: ADVANCED PROBIOTIC 1250 MG CAPSULE PO SCH (08:20)
[2022-01-21] MEDS: NICOTINE 14 MG/24 HR PATCH TD SCH (08:20)
[2022-01-21] MEDS: LIDOCAINE 5% 1 PATCH TD SCH (08:21)
[2022-01-21] MEDS: FLUTICASONE/VILANTEROL 200/25MCG 14 PUFFS/INHALER INH SCH (08:21)
[2022-01-21] MEDS: INSULIN ASPART PER UNIT SC SCH ×4 (08:23→20:35)
[2022-01-21] MEDS: LANTUS PER UNIT CHARGE SQ SCH ×2 (08:25→20:35)
[2022-01-21] MEDS: HYDROmorphone INJ 0.5 MG/0.5 ML SYR IV PRN ×2 (11:34→20:31)
[2022-01-21] MEDS: PATIROMER CALCIUM SORBITEX 8.4 GM PACK PO SCH (12:21)
--- NOTE | 2022-01-21 13:33 | Hospitalist Progress Note ---
Date of Service January 21, 2022 Assessment & Plan (1) Chest pain: Plan: (1) Chest pain: Secondary to carcinoma of the lung Chest pain is atypical mostly due to metastatic disease CT chest 01/07/22 showed new bony lesions at T8, left 8th rib as well as T5-6, stable destructive lesion on left 9th rib, interval enlargement of left axillary node and stable Left upper pleural based mass Trop is normal. No ACS on EKG. Echo noted normal LV size with moderate concentric LVH without segmental wall motion abnormalities, EF of 55 to 60%. Continue carvedilol Continue po Dilaudid and fentanyl patch Lidocaine patch added for each shoulder Pain has been increasing Will increase fentanyl patch 100 mcg and will keep Dilaudid as it is Pain has not been controlled with oral Dilaudid Will discontinue Dilaudid and start with morphine IR 15 mg Q6 hourly as needed Reassured that pain will be controlled Will adjust the pain medications as needed His pain is reasonably controlled with occasional exacerbation History of COPD Metastatic NSCLC status post surgery, radiation/incomplete chemotherapy secondary to intolerance Patient not a candidate for additional treatment as per recent outpatient Oncology note No acute shortness of breath and or wheezing (2) Primary cancer of left lung metastatic to other site: On 01/08/22, Previous hospitalist spoke with patient's Oncologist, Dr Lion Keith who stated no further treatment/chemo is recommended. Palliative on board Patient is not ready to transition to hospice, stated he has somethings to take care of before that. He understands prognosis is poor. Wants to continue full code for now until he is ready Radiation oncology on board S/P CT simulation for treatment planning to initiate radiation therapy Next radiation therapy schedule for tomorrow Continue dexamethasone-to milligram from 01/17/2022 for 1 week and then 1 mg for next week Palliative made referral to [facility] Palliative who will follow up with patient. Case discussed with Palliative that recommended not to increase the fentanyl patch due to risk of opioid toxicity on ESRD patient Continue Low dose of IV Dialudid 0.5 IV prn q12h while inpatient Will increase fentanyl patch 100 micrograms every 3 days Discussed with the palliative care-she has no other ways to help the patient as long as he is on dialysis and hospice will not cover that He still has 5 treatments of radiation and following that he will need to continue with outpatient dialysis Will finish the radiation treatment soon but will need to continue dialysis Discussed about resuscitation status again this afternoon (3) Hypertensive crisis: Presenting as headache and chest pain symptoms ?Hypertensive emergency Patient reports chronic intermittent generalized body pains for which he is on opioids (confirmed on PDMP) Concern for possible poor med adherence considering recurrent admissions; likely complicated by nausea/vomiting related to gastroparesis Continue lisinopril, clonidine Continue amlodipine and carvedilol started during this visit BP remains at the upper side and 167/93 as of today (4) Wound of left foot: CT foot does not show any osteomyelitis Related to dropfoot brace which was quite tight Ortho eval appreciated Wound care while inpatient Reports he already made appt with a farm equipment mechanic apprentice NAKULE swelling and ecchymosis Pt said that swelling and ecchymosis improved. If worsening, will consider to get an u/s of LUE Clinically improved significantly (5) Intractable nausea and vomiting: (6) Gastroparesis: History of IBD, gastroparesis status post gastric pacemaker, symptoms better after recent pacemaker adjustment Continue antiemetics prn Hyperkalemia Mostly due to ESRD Potassium 5.9 today Case discussed with nephrology Will be managed with dialysis (7) ESRD (end stage renal disease) on dialysis: Nephrology on board Schedule for HD on // Pt had 2hr HD today Dialysis as per the jigman (8) DM type 1 (diabetes mellitus, type 1): Recent hemoglobin A1c of 9.1 last October 2021 He had an episode of hypoglycemia today Currently on Lantus and novolog sliding scale Pharmacy on board for glycemic management Continue monitor BS closely while on Dexamethasone Blood sugar has been running high and will cover as needed with insulin Chronic anemia Worsening anemia. No obvious blood loss S/p 1 PRBC with HD on 01/05/22 Hbg is 7.9 today Continue monitor cbc Seizure disorder, stable on regimen DVT ppx no heparin subq due to low hgb Admission and Anticipated Discharge Date Admission Date: January 04, 2022 Subjective 01/17/2022 The patient was seen and examined in telemetry unit He complains to have pain and cough with black phlegm Associated with minimal shortness of breath but has not been requiring any oxygen At times he screams with the pain with nagging constant pain all the time Remains unsteady on feet 01/18/2022 The patient was seen and examined in telemetry unit His pain seems to be reasonably controlled today Denies any shortness of breath at rest Remains unsteady on feet 01/19/2022 The patient was seen and examined in telemetry unit He has been complaining of pain His medications was recently changed Denies any shortness of breath, any fever and or chills 01/20/2022 The patient was seen and examined in telemetry unit Still complains to have pain and cannot sleep at night His IV pain medications are changed 01/21/2022 The patient was seen and examined in telemetry unit His pain seems to be reasonably controlled with occasional exacerbation Has not had a sleep last night Review of Systems Review of Systems: All systems reviewed and are unremarkable except as noted below Respiratory: No shortness of breath but has cough and chest pain Physical Exam Physical Exam: Sitting at the edge of the bed without any acute distress Constitutional: well developed, well nourished, + ill appearing and average body habitus Eyes: PERRL, conjunctivae normal, anicteric sclerae ENMT: external ear and nose normal, oropharynx normal Neck: trachea midline, no thyromegaly Respiratory: no respiratory distress Auscultation: + diminished lung sounds and + crackles (Left lung) Cardiovascular: Rate/Rhythm: regular rate and regular rhythm; not tachycardic Heart Sounds: normal S1 and normal S2; no murmur Extremities: + edema (1-2+ edema bilaterally.) Gastrointestinal (Abdomen): Inspection/Auscultation: normal bowel sounds; abdomen not distended Percussion/Palpation: abdomen soft; abdomen nontender Psychiatric: A+Ox3, euthymic affect Lymphatic: no cervical or axillary lymphadenopathy Results & Data Results & Data ([facility]) Vital Signs (Past 12 Hours) Vital Signs Temp Pulse Pulse Pulse Resp BP BP 01/21/22 10:55 76 01/21/22 10:55 01/21/22 10:48 36.8 C 78 18 92/57 L 01/21/22 07:41 36.5 C 76 18 120/62 01/21/22 07:18 36.5 C 77 18 102/67 01/21/22 05:34 01/21/22 03:50 70 18 109/60 Pulse Ox O2 Del Method O2 Flow Rate 01/21/22 10:55 01/21/22 10:55 Nasal Cannula 4 01/21/22 10:48 100 Nasal Cannula 4 01/21/22 07:41 90 4 01/21/22 07:18 90 Nasal Cannula 4 01/21/22 05:34 Nasal Cannula 4 01/21/22 03:50 91 Nasal Cannula 2.0 (1) Chest pain Chest pain type: unspecified Qualified Code(s): R07.9 - Chest pain, unspecified
[2022-01-21] MEDS: amLODIPine BESYLATE 5 MG TAB PO SCH (20:26)
[2022-01-21] MEDS: OLANZAPINE 2.5 MG TAB PO SCH (20:31)
[2022-01-22] MEDS ORDERED: INSULIN ASPART PER UNIT SC SCH
[2022-01-22] MEDS: CHECK CLONIDINE PATCH PLACEMENT SCH ×4 (00:40→23:17)
[2022-01-22] MEDS: fentaNYL 100 MCG/HR TDSY TD SCH (00:41)
[2022-01-22] MEDS: CHECK fentaNYL PATCH PLACEMENT SCH ×4 (00:41→23:18)
[2022-01-22] MEDS: ACETAMINOPHEN 325 MG TAB PO SCH ×4 (02:59→20:56)
[2022-01-22] MEDS: MoRPHine SULFATE IR 15 MG TAB (IMMEDIATE RELEASE) PO PRN ×3 (02:59→19:51)
[2022-01-22] MEDS ORDERED: SODIUM CHLORIDE 0.9% 1000ML 1,000 ML IV PRN (07:00)
[2022-01-22 07:18] LABS: Calcium 6.8 mg/dl (8.5-10.1); Creatinine Clr Calc Pharmacy 13.4 ml/min; Est GFR (African American) 9.5 ml/min; Est GFR (Non-African American) 8.2 ml/min; Potassium 6.8 mmol/L (3.5-5.1)
[2022-01-22] MEDS: HYDROmorphone INJ 0.5 MG/0.5 ML SYR IV PRN ×3 (07:39→23:31)
[2022-01-22] MEDS: METOCLOPRAMIDE HCL 5 MG TABLET PO SCH (08:07)
[2022-01-22] MEDS: levETIRAcetam 250 MG TAB PO SCH ×2 (08:07→20:58)
[2022-01-22] MEDS: PANTOprazole 40 MG TAB PO SCH (08:07)
[2022-01-22] MEDS: guaiFENesin 600 MG TABCR PO SCH ×2 (08:07→20:58)
[2022-01-22] MEDS: dexAMETHasone 1 MG TAB PO SCH (08:08)
[2022-01-22] MEDS: carvediloL 6.25 MG TAB PO SCH ×2 (08:08→20:57)
[2022-01-22] MEDS: FLUTICASONE/VILANTEROL 200/25MCG 14 PUFFS/INHALER INH SCH (08:08)
[2022-01-22] MEDS: ADVANCED PROBIOTIC 1250 MG CAPSULE PO SCH (08:08)
[2022-01-22] MEDS: NICOTINE 14 MG/24 HR PATCH TD SCH (08:11)
[2022-01-22] MEDS ORDERED: SODIUM CHLORIDE 0.9% 250 ML IV PRN (08:11)
[2022-01-22] MEDS: LIDOCAINE 5% 1 PATCH TD SCH (08:12)
[2022-01-22] MEDS: GABAPENTIN 400 MG CAP PO SCH ×3 (08:15→20:56)
[2022-01-22] MEDS: DOCUSATE SODIUM/SENNA 50/8.6MG TAB PO SCH ×2 (08:16→20:57)
[2022-01-22] MEDS: INSULIN ASPART PER UNIT SC SCH ×4 (08:31→20:53)
[2022-01-22] MEDS: LANTUS PER UNIT CHARGE SQ SCH ×2 (08:32→20:58)
[2022-01-22 09:17] LABS: Basophils # (auto) 0.02 K/uL (0-0.2); Basophils % (auto) 0.2 %; Eosinophils # (auto) 0.14 K/uL (0-0.50); Eosinophils % (auto) 1.5 %; Hematocrit (blood only) 20.9 % (40.1-51.0); Hemoglobin 6.1 g/dl (14.0-18.0); Immature Granulocytes # (auto) 0.08 K/uL (0.00-0.02); Immature Granulocytes % (auto) 0.9 %; Lymphocytes # (auto) 0.36 K/uL (1.2-3.4); Mean Corpuscular Hemoglobin 28.6 pg (25.0-34.0); Mean Corpuscular Hgb Conc 29.2 g/dL (32.0-36.0); Mean Corpuscular Volume 98.1 fL (80.0-100.0); Mean Platelet Volume 11.2 fL (9.4-12.4); Monocytes % (auto) 6.6 %; Neutrophils # (auto) 7.88 K/uL (1.4-6.5); Neutrophils % (auto) 86.8 %; Ovalocytes 1+; Platelet Count 192 K/uL (130-400); RDW Coefficient of Variation 14.3 % (11.5-14.5); RDW Standard Deviation 50.9 fL (36.4-46.3); Red Blood Count 2.13 M/uL (4.63-6.08); White Blood Count 9.08 K/ul (4.8-10.8)
--- NOTE | 2022-01-22 10:19 | Dialysis Progress Note ---
Date of Service January 22, 2022 Assessment & Plan Admission and Anticipated Discharge Date Admission Date: January 04, 2022 Subjective Assessment & Plan (1) ESRD (end stage renal disease) on dialysis: Plan: BP was very low in the beginning but then improved. he wants to do dialysis for 4 hrs even though he knows he is dying very soon, getting PRBC Denies any shortness of breath, any fever and or chills. having difficulty with the reality that he is dying. very scared. Calling family members. Subjective The patient was seen and examined in dialysis unit Pain still present despite high dose pain meds. BP was very low in the beginning but then improved. he wants to do dialysis even though he knows he is dying very soon, getting PRBC Denies any shortness of breath, any fever and or chills Review of Systems Review of Systems: All systems reviewed & are unremarkable except as noted in HPI & below pedal edema better no shortness of breath Physical Exam Physical Exam: Eyes- anicteric Neck- no JVD Lungs- clear breath sounds bilaterally, no rales/wheezes Heart- normal rate, regular rhythm; no murmurs Abdomen- normal bowel sounds, nondistended, soft, nontender No CVA tenderness Extremities- 1+pretibial edema, no calf tenderness Neuro- alert, oriented x 3; no gross focal neurologic deficits Skin- warm & dr Results & Data ([facility]) Vital Signs (Past 12 Hours) Vital Signs Temp Pulse Pulse Pulse Resp BP BP 01/22/22 10:00 71 119/83 01/22/22 09:30 69 108/64 01/22/22 09:22 36.6 C 69 01/22/22 10:00 36.6 C 71 18 119/83 01/22/22 09:45 36.7 C 70 16 121/68 01/22/22 07:40 01/22/22 06:06 76 01/22/22 07:43 36.5 C 69 16 109/75 01/22/22 03:00 36.5 C 68 18 104/64 01/22/22 00:00 82 01/21/22 23:25 36.6 C 72 18 112/55 L 01/21/22 22:31 Pulse Ox O2 Del Method O2 Flow Rate 01/22/22 10:00 01/22/22 09:30 01/22/22 09:22 01/22/22 10:00 01/22/22 09:45 01/22/22 07:40 Nasal Cannula 5 01/22/22 06:06 01/22/22 07:43 97 Nasal Cannula 5 01/22/22 03:00 96 Nasal Cannula 5 01/22/22 00:00 01/21/22 23:25 97 Nasal Cannula 5.0 01/21/22 22:31 Nasal Cannula 5
--- NOTE | 2022-01-22 11:04 | Pharmacy Report ---
Pharmacy Glycemic Short Note 2 - Date of Service January 22, 2022 - Glycemic Short BSG Results (Last 24 hours): 01/21/22 01/21/22 01/21/22 11:01 16:07 17:43 Glucose POC Glucose 263 H 103 H 111 H 01/21/22 01/21/22 01/22/22 20:34 23:27 05:20 Glucose 119 H POC Glucose 105 H 116 H 01/22/22 07:29 Glucose POC Glucose 125 H OUTPATIENT ANTIDIABETIC REGIMEN: * Lantus 7 units SC HS * Novolog ACHS (unknown dose, but prior visits listed as <30 units/day) * HbA1c: 9.1% (10/21/21) * However, this result is likely somewhat unreliable in ESRD patients d/t interactions between the A1c analyzing technique and high levels of urea in ESRD, reduced RBC life span, iron deficiency anemia, and EPO administration. HbA1c > 7.5% in ESRD patient may overestimate the extent of hyperglycemia in ESRD patients. ASSESSMENT: 01/21: * BSGs acceptable over last 24 hrs given this patient's goals and labile BSGs. No episodes of hypoglycemia noted in last 24 hrs. * Fasting BSG 125 this AM with 5 units basal on board. Basal needs have fluctuated given nocturnal snacking. Outpt dose was 7 units/day. Will provide orders for 5 units each AM and a scaled dose each PM depending on BSG. * Novolog CF/CR performed satisfactory over last 24 hrs. Will continue for now. * HD orders placed for today 01/19: * BSGs labile: [phone]/dL. Fasting 165mg/dL this AM followed by a hypoglycemic event at lunchtime check. Received 12 units basal and 25 units of bolus insulin yesterday. * Continues on dexamethasone 2mg and tolerating diet * Lantus decreased to 5 units this AM; will reduce further to 3 units for tonight's dose. Novolog again loosened to 55/18 at lunch. Reassess Lantus/Novolog tomorrow. 01/18: * Patient's BSGs have been labile the past 24 hrs [phone] mg/dL, with a fasting of 230 mg/dL this AM and a hypoglycemic event (47) two hours later after using correction factor 35 and carb ratio of 8. BSG at lunch 433 mg/dL * Loosened correction to 40 mg and carb ratio to 10. Anticipate BSG will drop with correction. * Did adjust AM lantus dose to 8 units, will set scale for PM dose. * Continues of dexamethasone 2 mg. 01/17: * BSGs acceptable the last 24h: [phone]/dL. Fasting 191mg/dL this AM. Received 22 units of basal and 27 units of bolus insulin yesterday. * Tolerating diet, dexamethasone dose decreased to 2mg daily starting today. * Will empirically reduce both Lantus and Novolog given reduction in steroid. Lantus 6 units BID (~50% reduction). Novolog parameters loosened to 02/02. May need further reduction pending response. Monitor closely. PLAN FOR INPATIENT GLYCEMIC CONTROL: * Basal insulin * Lantus 5 units SC this AM, will give additional 2 units at HS if BSG 160 or greater * Bolus insulin * NovoLog per scale ACHS or Q6hrs while NPO * Goal Range: Low 140 mg/dL - High 180 mg/dL * Correction Factor: 55 mg/dL/unit * Nutritional / Prandial insulin per carb ratio of 1 unit per 18 grams CHO consumed (max 10 units)
--- NOTE | 2022-01-22 14:48 | Palliative Care Progress Note ---
Date of Service January 22, 2022 Assessment & Plan (1) Chronic pain: Plan: with neuropathy, lung cancer and bone mets. He does not appear to have significant relief with decadron and could probably taper off. He is also on adjuvant gabapentin and is receiving palliative radiation. He has questions about whether benefits of radiation outweigh the fatigue and discomfort that he has. He is planning to discuss this with Dr. Keith. He is also on fentanyl with prn hydromorphone and morphine. Would monitor for opioid toxicity with morphine and renal failure, though the frequency of use has decreased. (2) Palliative care encounter: Plan: I talked with Jeff, his brother and sister extensively about his goals moving forward. He recognizes that he is approaching his dying time. He has said that he has unfinished business and goodbyes that he needs to say. I encouraged him to do this now while he is thinking clearly and feels able to do that. Knowing that his time is short, I asked him what he wanted his final days to be like. He told me that he hopes to peacefully with his family and friends around him. We again discussed the directive for intubation. He feels strongly that he wants to be intubated to allow time for his family to come and say goodbye. I explained that with intubation, there was no guarantee that we could prolong his life. He acknowledges this but tells me that this is a promise that he made to his daughter and he intends to follow through with it. He asked again about hospice which unfortunately is not an option while he is on dialysis. He feels strongly that he is a fighter and that stopping dialysis is a type of suicide in his mind. He does not intend to stop dialysis unless he is not able to tolerate it. We also discussed where he would want to be for his remaining time. He does not feel that staying with his parents or daughter is an option. We discussed SNF care and he would be agreeable to [facility]. Discussed with case management. Admission and Anticipated Discharge Date Admission Date: January 04, 2022 Subjective Jeff requested visit for further discussion about plan of care. He had hypotension in dialysis unit this morning but was able to tolerate dialysis. He also had dyspnea. Denies dyspnea currently. Continues to have pain and now on prn morphine. He rates pain as 9/10 which goes to 8/10 with both hydromorphone and dilaudid. Fentanyl now at 100mcg. Review of Systems Review of Systems: ESAS Pain 3/3 Dyspnea 1/3 Nausea 1/3 Anorexia 0/3 Drowsiness 0/3 PPS 40% Physical Exam Constitutional: no acute distress ENMT: no lesions or exudate Respiratory: normal respiratory effort; no labored breathing Cardiovascular: Rate/Rhythm: regular rate and regular rhythm Extremities: + edema Neurologic: awake; not confused Results & Data ([facility]) Vital Signs (Past 12 Hours) Vital Signs Temp Pulse Pulse Pulse Resp BP BP 01/22/22 13:20 98.1 F 73 144/78 H 01/22/22 13:00 73 135/80 01/22/22 13:40 122/71 01/22/22 12:30 76 136/80 01/22/22 12:00 76 137/83 01/22/22 11:30 74 118/68 01/22/22 11:00 69 106/63 01/22/22 10:30 69 114/70 01/22/22 10:00 71 119/83 01/22/22 09:30 69 108/64 01/22/22 09:22 97.9 F 69 01/22/22 10:15 97.9 F 70 18 122/76 01/22/22 10:00 97.9 F 71 18 119/83 01/22/22 09:45 98.1 F 70 16 121/68 01/22/22 07:40 01/22/22 06:06 76 01/22/22 07:43 97.7 F 69 16 109/75 01/22/22 03:00 97.7 F 68 18 104/64 Pulse Ox O2 Del Method O2 Flow Rate 01/22/22 13:20 01/22/22 13:00 01/22/22 13:40 01/22/22 12:30 01/22/22 12:00 01/22/22 11:30 01/22/22 11:00 01/22/22 10:30 01/22/22 10:00 01/22/22 09:30 01/22/22 09:22 01/22/22 10:15 97 5 01/22/22 10:00 01/22/22 09:45 01/22/22 07:40 Nasal Cannula 5 01/22/22 06:06 01/22/22 07:43 97 Nasal Cannula 5 01/22/22 03:00 96 Nasal Cannula 5 PG Care Time/CCT Total # of Minutes Spent Total Time Spent: 68 Total Time Spent with Patient: Total time spent is greater than 50% in coordination of care (as documented) at patient's floor/unit and/or counseling patient: symptom management, goals of care, code status, hospice Coding Level of Care Code 05209 Subseq Hosp Care Lvl 3 Diagnoses Chronic pain G89.29 Palliative care encounter Z51.5
[2022-01-22] MEDS: PATIROMER CALCIUM SORBITEX 8.4 GM PACK PO SCH (15:41)
--- NOTE | 2022-01-22 16:18 | Hospitalist Progress Note ---
Date of Service January 22, 2022 Assessment & Plan (1) Chest pain: Plan: (1) Chest pain: Secondary to carcinoma of the lung Chest pain is atypical mostly due to metastatic disease CT chest 01/07/22 showed new bony lesions at T8, left 8th rib as well as T5-6, stable destructive lesion on left 9th rib, interval enlargement of left axillary node and stable Left upper pleural based mass Trop is normal. No ACS on EKG. Echo noted normal LV size with moderate concentric LVH without segmental wall motion abnormalities, EF of 55 to 60%. Continue carvedilol Continue po Dilaudid and fentanyl patch Lidocaine patch added for each shoulder Pain has been increasing Will increase fentanyl patch 100 mcg and will keep Dilaudid as it is Pain has not been controlled with oral Dilaudid Will discontinue Dilaudid and start with morphine IR 15 mg Q6 hourly as needed Pain has not been reasonably controlled We will increase the morphine IR to q. 4 hourly as needed Acute on chronic anemia Chronic anemia Worsening anemia. No obvious blood loss S/p 1 PRBC with HD on 01/05/22 Hbg is 7.9 today Globin dropped to 6.1 as of 01/22/2022 and received 2 units of blood transfusion No significant blood loss from GI and or respiratory tract We will check CBC tomorrow History of COPD Metastatic NSCLC status post surgery, radiation/incomplete chemotherapy secondary to intolerance Patient not a candidate for additional treatment as per recent outpatient Oncology note No acute shortness of breath and or wheezing (2) Primary cancer of left lung metastatic to other site: On 01/08/22, Previous hospitalist spoke with patient's Oncologist, Dr Lion Keith who stated no further treatment/chemo is recommended. Palliative on board Patient is not ready to transition to hospice, stated he has somethings to take care of before that. He understands prognosis is poor. Wants to continue full code for now until he is ready Radiation oncology on board S/P CT simulation for treatment planning to initiate radiation therapy Next radiation therapy schedule for tomorrow Continue dexamethasone-to milligram from 01/17/2022 for 1 week and then 1 mg for next week Palliative made referral to [facility] Palliative who will follow up with patient. Case discussed with Palliative that recommended not to increase the fentanyl patch due to risk of opioid toxicity on ESRD patient Continue Low dose of IV Dialudid 0.5 IV prn q12h while inpatient Will increase fentanyl patch 100 micrograms every 3 days Discussed with the palliative care-she has no other ways to help the patient as long as he is on dialysis and hospice will not cover that He still has 5 treatments of radiation and following that he will need to continue with outpatient dialysis Will finish the radiation treatment soon but will need to continue dialysis Has had radiation today and appreciate palliative care reevaluation today Still wants to have conditional code as mentioned (3) Hypertensive crisis: Presenting as headache and chest pain symptoms ?Hypertensive emergency Patient reports chronic intermittent generalized body pains for which he is on opioids (confirmed on PDMP) Concern for possible poor med adherence considering recurrent admissions; likely complicated by nausea/vomiting related to gastroparesis Continue lisinopril, clonidine Continue amlodipine and carvedilol started during this visit BP remains at the upper side and 167/93 as of today (4) Wound of left foot: CT foot does not show any osteomyelitis Related to dropfoot brace which was quite tight Ortho eval appreciated Wound care while inpatient Reports he already made appt with a cardiac technician LUE swelling and ecchymosis Pt said that swelling and ecchymosis improved. 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 (8) DM type 1 (diabetes mellitus, type 1): Recent hemoglobin A1c of 9.1 last October 2021 He had an episode of hypoglycemia today Currently on Lantus and novolog sliding scale Pharmacy on board for glycemic management Continue monitor BS closely while on Dexamethasone Blood sugar has been running high and will cover as needed with insulin Seizure disorder, stable on regimen DVT ppx no heparin subq due to low hgb Admission and Anticipated Discharge Date Admission Date: January 04, 2022 Subjective 01/17/2022 The patient was seen and examined in telemetry unit He complains to have pain and cough with black phlegm Associated with minimal shortness of breath but has not been requiring any oxygen At times he screams with the pain with nagging constant pain all the time Remains unsteady on feet 01/18/2022 The patient was seen and examined in telemetry unit His pain seems to be reasonably controlled today Denies any shortness of breath at rest Remains unsteady on feet 01/19/2022 The patient was seen and examined in telemetry unit He has been complaining of pain His medications was recently changed Denies any shortness of breath, any fever and or chills 01/20/2022 The patient was seen and examined in telemetry unit Still complains to have pain and cannot sleep at night His IV pain medications are changed 01/21/2022 The patient was seen and examined in telemetry unit His pain seems to be reasonably controlled with occasional exacerbation Has not had a sleep last night 01/22/2022 The patient was seen and examined in telemetry unit in presence of the friends He has been complaining of more pain and wants to have more pain medications He wants to go ahead with the conditional code and intubation if needed Review of Systems Review of Systems: All systems reviewed and are unremarkable except as noted below Physical Exam Physical Exam: Sitting at the edge of the bed without any acute distress Constitutional: well developed, well nourished, + ill appearing and average body habitus Eyes: PERRL, conjunctivae normal, anicteric sclerae ENMT: external ear and nose normal, oropharynx normal Neck: trachea midline, no thyromegaly Respiratory: no respiratory distress Auscultation: + diminished lung sounds and + crackles (Left lung) Cardiovascular: Rate/Rhythm: regular rate and regular rhythm; not tachycardic Heart Sounds: normal S1 and normal S2; no murmur Extremities: + edema (1-2+ edema bilaterally.) Gastrointestinal (Abdomen): Inspection/Auscultation: normal bowel sounds; abdomen not distended Percussion/Palpation: abdomen soft; abdomen nontender Psychiatric: A+Ox3, euthymic affect Lymphatic: no cervical or axillary lymphadenopathy Results & Data Results & Data ([facility]) Vital Signs (Past 12 Hours) Vital Signs Temp Pulse Pulse Pulse Resp BP BP 01/22/22 15:50 36.5 C 75 16 143/85 H 01/22/22 14:12 80 01/22/22 13:20 36.7 C 73 144/78 H 01/22/22 13:00 73 135/80 01/22/22 13:40 122/71 01/22/22 12:30 76 136/80 01/22/22 12:00 76 137/83 01/22/22 11:30 74 118/68 01/22/22 11:00 69 106/63 01/22/22 10:30 69 114/70 01/22/22 10:00 71 119/83 01/22/22 09:30 69 108/64 01/22/22 09:22 36.6 C 69 01/22/22 10:15 36.6 C 70 18 122/76 01/22/22 10:00 36.6 C 71 18 119/83 01/22/22 09:45 36.7 C 70 16 121/68 01/22/22 07:40 01/22/22 06:06 76 01/22/22 07:43 36.5 C 69 16 109/75 Pulse Ox O2 Del Method O2 Flow Rate 01/22/22 15:50 97 Room Air 01/22/22 14:12 01/22/22 13:20 01/22/22 13:00 01/22/22 13:40 01/22/22 12:30 01/22/22 12:00 01/22/22 11:30 01/22/22 11:00 01/22/22 10:30 01/22/22 10:00 01/22/22 09:30 01/22/22 09:22 01/22/22 10:15 97 5 01/22/22 10:00 01/22/22 09:45 01/22/22 07:40 Nasal Cannula 5 01/22/22 06:06 01/22/22 07:43 97 Nasal Cannula 5 Laboratory Results Short CBC 01/22/22 Range/Units 05:20 WBC 9.08 (4.8-10.8) K/ul Hgb 6.1 L* (14.0-18.0) g/dl Hct 20.9 L* (40.1-51.0) % Plt Count 192 (130-400) K/uL BMP 01/22/22 05:20 Sodium 130 L Potassium 6.8 H* Chloride 98 Carbon Dioxide 20 L BUN 82 H Creatinine 6.84 H* Glucose 119 H Calcium 6.8 L (1) Chest pain Chest pain type: unspecified Qualified Code(s): R07.9 - Chest pain, unspecified
[2022-01-22] MEDS: CARBOHYDRATES FOR HYPOGLYCEMIA PO PRN (20:49)
[2022-01-22] MEDS: amLODIPine BESYLATE 5 MG TAB PO SCH (20:55)
[2022-01-22] MEDS: OLANZAPINE 2.5 MG TAB PO SCH (20:58)
[2022-01-22] MEDS: DEXTROSE 50% 50 ML SYRINGE IV PRN (21:07)
[2022-01-22] MEDS: PROMETHAZINE HCL 12.5 MG in SODIUM CHLORIDE 0.9% 50 ML IV PRN (23:32)
[2022-01-23] MEDS: HYDROmorphone INJ 0.5 MG/0.5 ML SYR IV PRN ×4 (00:36→23:35)
[2022-01-23] MEDS: ACETAMINOPHEN 325 MG TAB PO SCH ×4 (03:52→21:19)
[2022-01-23 06:45] LABS: Basophils # (auto) 0.02 K/uL (0-0.2); Basophils % (auto) 0.3 %; Eosinophils # (auto) 0.25 K/uL (0-0.50); Eosinophils % (auto) 4.2 %; Hematocrit (blood only) 24.9 % (40.1-51.0); Hemoglobin 7.7 g/dl (14.0-18.0); Immature Granulocytes # (auto) 0.04 K/uL (0.00-0.02); Immature Granulocytes % (auto) 0.7 %; Lymphocytes # (auto) 0.32 K/uL (1.2-3.4); Lymphocytes % (auto) 5.3 %; Mean Corpuscular Hemoglobin 29.1 pg (25.0-34.0); Mean Corpuscular Hgb Conc 30.9 g/dL (32.0-36.0); Mean Platelet Volume 10.9 fL (9.4-12.4); Monocytes # (auto) 0.52 K/uL (0.24-0.82); Monocytes % (auto) 8.7 %; Neutrophils # (auto) 4.84 K/uL (1.4-6.5); Neutrophils % (auto) 80.8 %; Platelet Count 172 K/uL (130-400); RDW Coefficient of Variation 15.3 % (11.5-14.5); RDW Standard Deviation 52.7 fL (36.4-46.3); Red Blood Count 2.65 M/uL (4.63-6.08); White Blood Count 5.99 K/ul (4.8-10.8)
[2022-01-23 07:08] LABS: RBC Morphology Unremarkable
[2022-01-23] MEDS: DOCUSATE SODIUM/SENNA 50/8.6MG TAB PO SCH ×2 (08:12→21:18)
[2022-01-23] MEDS: NICOTINE 14 MG/24 HR PATCH TD SCH (08:13)
[2022-01-23] MEDS: levETIRAcetam 250 MG TAB PO SCH ×2 (08:14→21:18)
[2022-01-23] MEDS: carvediloL 6.25 MG TAB PO SCH ×2 (08:14→21:19)
[2022-01-23] MEDS: dexAMETHasone 1 MG TAB PO SCH (08:15)
[2022-01-23] MEDS: guaiFENesin 600 MG TABCR PO SCH ×2 (08:15→21:17)
[2022-01-23] MEDS: METOCLOPRAMIDE HCL 5 MG TABLET PO SCH (08:15)
[2022-01-23] MEDS: GABAPENTIN 400 MG CAP PO SCH ×3 (08:15→21:17)
[2022-01-23] MEDS: PANTOprazole 40 MG TAB PO SCH (08:15)
[2022-01-23] MEDS: ADVANCED PROBIOTIC 1250 MG CAPSULE PO SCH (08:16)
[2022-01-23] MEDS: LIDOCAINE 5% 1 PATCH TD SCH (08:16)
[2022-01-23] MEDS: CHECK CLONIDINE PATCH PLACEMENT SCH ×3 (08:18→23:32)
[2022-01-23] MEDS: CHECK fentaNYL PATCH PLACEMENT SCH (08:18)
[2022-01-23] MEDS: FLUTICASONE/VILANTEROL 200/25MCG 14 PUFFS/INHALER INH SCH (08:19)
[2022-01-23] MEDS: INSULIN ASPART PER UNIT SC SCH ×4 (08:25→21:06)
[2022-01-23] MEDS: LANTUS PER UNIT CHARGE SQ SCH ×2 (08:26→21:21)
--- NOTE | 2022-01-23 10:21 | Pharmacy Report ---
Pharmacy Glycemic Short Note 2 - Date of Service January 23, 2022 - Glycemic Short BSG Results (Last 24 hours): 01/22/22 01/22/22 01/22/22 13:27 16:18 20:46 POC Glucose 118 H 246 H 48 L* 01/22/22 01/22/22 01/22/22 20:47 21:04 21:21 POC Glucose 47 L* 49 L* 139 H 01/22/22 01/23/22 23:44 07:01 POC Glucose 188 H 227 H OUTPATIENT ANTIDIABETIC REGIMEN: * Lantus 7 units SC HS * Novolog ACHS (unknown dose, but prior visits listed as <30 units/day) * HbA1c: 9.1% (10/21/21) * However, this result is likely somewhat unreliable in ESRD patients d/t interactions between the A1c analyzing technique and high levels of urea in ESRD, reduced RBC life span, iron deficiency anemia, and EPO administration. HbA1c > 7.5% in ESRD patient may overestimate the extent of hyperglycemia in ESRD patients. ASSESSMENT: 01/22: * Patient did have an episode of hypoglycemia yesterday at bedtime. BSG dropped from 246 at dinner to 48 at HS. Patient was asymptomatic and treated with PO carbs per nursing note. Given pt has had another episode of hypoglycemia will further lessen correctional insulin and increase goal range to lessen risks. If pt again experiences a low, will adjust CR as well. * Fasting BSG elevated this AM at 227. This could be due in part to excess carbs given last night in response to low. 5 units basal on board this AM. 01/21: * BSGs acceptable over last 24 hrs given this patient's goals and labile BSGs. No episodes of hypoglycemia noted in last 24 hrs. * Fasting BSG 125 this AM with 5 units basal on board. Basal needs have fluctuated given nocturnal snacking. Outpt dose was 7 units/day. Will provide orders for 5 units each AM and a scaled dose each PM depending on BSG. * Novolog CF/CR performed satisfactory over last 24 hrs. Will continue for now. * HD orders placed for today 01/19: * BSGs labile: [phone]/dL. Fasting 165mg/dL this AM followed by a hypoglycemic event at lunchtime check. Received 12 units basal and 25 units of bolus insulin yesterday. * Continues on dexamethasone 2mg and tolerating diet * Lantus decreased to 5 units this AM; will reduce further to 3 units for tonight's dose. Novolog again loosened to 55/18 at lunch. Reassess L antus/Novolog tomorrow. 01/18: * Patient's BSGs have been labile the past 24 hrs [phone] mg/dL, with a fasting of 230 mg/dL this AM and a hypoglycemic event (47) two hours later after using correction factor 35 and carb ratio of 8. BSG at lunch 433 mg/dL * Loosened correction to 40 mg and carb ratio to 10. Anticipate BSG will drop with correction. * Did adjust AM lantus dose to 8 units, will set scale for PM dose. * Continues of dexamethasone 2 mg. 01/17: * BSGs acceptable the last 24h: [phone]/dL. Fasting 191mg/dL this AM. Received 22 units of basal and 27 units of bolus insulin yesterday. * Tolerating diet, dexamethasone dose decreased to 2mg daily starting today. * Will empirically reduce both Lantus and Novolog given reduction in steroid. Lantus 6 units BID (~50% reduction). Novolog parameters loosened to 30/9. May need further reduction pending response. Monitor closely. PLAN FOR INPATIENT GLYCEMIC CONTROL: * Basal insulin * Lantus 5 units SC this AM, will give additional 2 units at HS if BSG 160 or greater * Bolus insulin * NovoLog per scale ACHS or Q6hrs while NPO * Goal Range: Low 140 mg/dL - High 200 mg/dL * Correction Factor: 100 mg/dL/unit * Nutritional / Prandial insulin per carb ratio of 1 unit per 18 grams CHO consumed (max 10 units)
--- NOTE | 2022-01-23 11:24 | Hospitalist Progress Note ---
Date of Service January 23, 2022 Assessment & Plan (1) Chest pain: Plan: (1) Chest pain: Secondary to carcinoma of the lung Chest pain is atypical mostly due to metastatic disease CT chest 01/07/22 showed new bony lesions at T8, left 8th rib as well as T5-6, stable destructive lesion on left 9th rib, interval enlargement of left axillary node and stable Left upper pleural based mass Trop is normal. No ACS on EKG. Echo noted normal LV size with moderate concentric LVH without segmental wall motion abnormalities, EF of 55 to 60%. Continue carvedilol Continue po Dilaudid and fentanyl patch Lidocaine patch added for each shoulder Pain has been increasing Will increase fentanyl patch 100 mcg and will keep Dilaudid as it is Pain has not been controlled with oral Dilaudid Will discontinue Dilaudid and start with morphine IR 15 mg Q6 hourly as needed Pain has not been reasonably controlled We will increase the morphine IR to q. 4 hourly as needed His fentanyl patch will be increased to 125 mcg every [facility] Acute on chronic anemia Chronic anemia Worsening anemia. No obvious blood loss S/p 1 PRBC with HD on 01/05/22 Hbg is 7.9 today Globin dropped to 6.1 as of 01/22/2022 and received 2 units of blood transfusion No significant blood loss from GI and or respiratory tract Hemoglobin went up to 7.7 following blood transfusion History of COPD Metastatic NSCLC status post surgery, radiation/incomplete chemotherapy secondary to intolerance Patient not a candidate for additional treatment as per recent outpatient Oncology note No acute shortness of breath and or wheezing (2) Primary cancer of left lung metastatic to other site: On 01/08/22, Previous hospitalist spoke with patient's Oncologist, Dr Lion Keith who stated no further treatment/chemo is recommended. Palliative on board Patient is not ready to transition to hospice, stated he has somethings to take care of before that. He understands prognosis is poor. Wants to continue full code for now until he is ready Radiation oncology on board S/P CT simulation for treatment planning to initiate radiation therapy Next radiation therapy schedule for tomorrow Continue dexamethasone-to milligram from 01/17/2022 for 1 week and then 1 mg for next week Palliative made referral to [facility] who will follow up with patient. Case discussed with Palliative that recommended not to increase the fentanyl patch due to risk of opioid toxicity on ESRD patient Continue Low dose of IV Dialudid 0.5 IV prn q12h while inpatient Will increase fentanyl patch 100 micrograms every 3 days Discussed with the palliative care-she has no other ways to help the patient as long as he is on dialysis and hospice will not cover that He still has 5 treatments of radiation and following that he will need to continue with outpatient dialysis Will finish the radiation treatment soon but will need to continue dialysis Has had radiation today and appreciate palliative care reevaluation today He still wants to be intubated to be seen by his family members and clearly mentioned that he can be extubated following the visit by his family members He has clearly explained and instructed that to his daughter (3) Hypertensive crisis: Presenting as headache and chest pain symptoms ?Hypertensive emergency Patient reports chronic intermittent generalized body pains for which he is on opioids (confirmed on PDMP) Concern for possible poor med adherence considering recurrent admissions; likely complicated by nausea/vomiting related to gastroparesis Continue lisinopril, clonidine Continue amlodipine and carvedilol started during this visit BP remains at the upper side and 167/93 as of today (4) Wound of left foot: CT foot does not show any osteomyelitis Related to dropfoot brace which was quite tight Ortho eval appreciated Wound care while inpatient Reports he already made appt with a chicken buyer LUE swelling and ecchymosis Pt said that swelling and ecchymosis improved. If worsening, will consider to get an u/s of LUE Clinically improved significantly (5) Intractable nausea and vomiting: (6) Gastroparesis: History of IBD, gastroparesis status post gastric pacemaker, symptoms better after recent pacemaker adjustment Continue antiemetics prn Hyperkalemia Mostly due to ESRD Potassium 5.9 today Case discussed with nephrology Will be managed with dialysis (7) ESRD (end stage renal disease) on dialysis: Nephrology on board Schedule for HD on // Pt had 2hr HD today Dialysis as per the artists' model (8) DM type 1 (diabetes mellitus, type 1): Recent hemoglobin A1c of 9.1 last October 2021 He had an episode of hypoglycemia today Currently on Lantus and novolog sliding scale Pharmacy on board for glycemic management Continue monitor BS closely while on Dexamethasone Blood sugar has been running high and will cover as needed with insulin Seizure disorder, stable on regimen DVT ppx no heparin subq due to low hgb Admission and Anticipated Discharge Date Admission Date: January 04, 2022 Subjective 01/17/2022 The patient was seen and examined in telemetry unit He complains to have pain and cough with black phlegm Associated with minimal shortness of breath but has not been requiring any oxygen At times he screams with the pain with nagging constant pain all the time Remains unsteady on feet 01/18/2022 The patient was seen and examined in telemetry unit His pain seems to be reasonably controlled today Denies any shortness of breath at rest Remains unsteady on feet 01/19/2022 The patient was seen and examined in telemetry unit He has been complaining of pain His medications was recently changed Denies any shortness of breath, any fever and or chills 01/20/2022 The patient was seen and examined in telemetry unit Still complains to have pain and cannot sleep at night His IV pain medications are changed 01/21/2022 The patient was seen and examined in telemetry unit His pain seems to be reasonably controlled with occasional exacerbation Has not had a sleep last night 01/22/2022 The patient was seen and examined in telemetry unit in presence of the friends He has been complaining of more pain and wants to have more pain medications He wants to go ahead with the conditional code and intubation if needed 01/23/2022 The patient was seen and examined in telemetry unit He has been very weak and lethargic and complaining of ongoing pain He still wishes to have intubation if needed Review of Systems Review of Systems: All systems reviewed and are unremarkable except as noted below Respiratory: No shortness of breath but has cough and chest pain Physical Exam Physical Exam: Sitting at the edge of the bed with minimal shortness of breath and pain Constitutional: well developed, well nourished, + ill appearing and average body habitus Eyes: PERRL, conjunctivae normal, anicteric sclerae ENMT: external ear and nose normal, oropharynx normal Neck: trachea midline, no thyromegaly Respiratory: no respiratory distress Auscultation: + diminished lung sounds and + crackles (Left lung) Cardiovascular: Rate/Rhythm: regular rate and regular rhythm; not tachycardic Heart Sounds: normal S1 and normal S2; no murmur Extremities: + edema (1-2+ edema bilaterally.) Gastrointestinal (Abdomen): Inspection/Auscultation: normal bowel sounds; abdomen not distended Percussion/Palpation: abdomen soft; abdomen nontender Musculoskeletal: No acute arthritis in any joint Psychiatric: A+Ox3, euthymic affect Lymphatic: no cervical or axillary lymphadenopathy Results & Data Results & Data ([facility]) Vital Signs (Past 12 Hours) Vital Signs Temp Pulse Pulse Pulse Pulse Resp BP 01/23/22 10:46 35.6 C L 80 20 121/64 01/23/22 08:00 68 01/23/22 08:00 01/23/22 07:10 01/23/22 07:06 36.4 C L 69 20 117/64 01/23/22 03:02 36.9 C 79 16 126/76 01/23/22 01:12 68 17 117/66 01/23/22 00:12 79 Pulse Ox O2 Del Method O2 Flow Rate 01/23/22 10:46 91 Room Air 01/23/22 08:00 01/23/22 08:00 Nasal Cannula 2 01/23/22 07:10 90 2 01/23/22 07:06 86 L Room Air 01/23/22 03:02 95 Nasal Cannula 2 01/23/22 01:12 95 Nasal Cannula 2 01/23/22 00:12 Laboratory Results Short CBC 01/23/22 Range/Units 05:58 WBC 5.99 (4.8-10.8) K/ul Hgb 7.7 L (14.0-18.0) g/dl Hct 24.9 L (40.1-51.0) % Plt Count 172 (130-400) K/uL Medications Administered Current Inpatient Medications Acetaminophen (Acetaminophen 325 Mg Tab) 650 mg PO Q6H [facility] Stop: 02/03/22 15:29 Last Admin: 01/23/22 08:13 Dose: 650 mg Amlodipine Besylate (Amlodipine Besylate 5 Mg Tab) 10 mg PO HS [facility] Stop: 02/03/22 20:59 Last Admin: 01/22/22 20:55 Dose: 10 mg Benzonatate (Benzonatate 100 Mg Capsule) 100 mg PO TID PRN PRN Reason: Cough Stop: 02/16/22 06:19 Carvedilol (Carvedilol 6.25 Mg Tab) 6.25 mg PO BID [facility] Stop: 02/03/22 20:59 Last Admin: 01/23/22 08:14 Dose: 6.25 mg Clonidine HCl (Clonidine Hcl 0.2 Mg/24 Hr Transderm Sys) 1 patch TD Q7D@0000 [facility] Stop: 02/18/22 00:00 Last Admin: 01/19/22 00:24 Dose: 1 patch Dexamethasone (Dexamethasone 1 Mg Tab) 2 mg PO DAILY [facility] Stop: 02/16/22 08:59 Last Admin: 01/23/22 08:15 Dose: 2 mg Dextrose (Dextrose 50% 50 Ml Syringe) 25 - 50 ml IV UD PRN; Protocol PRN Reason: Hypoglycemia Protocol Stop: 02/03/22 01:23 Last Admin: 01/22/22 21:07 Dose: 25 ml Fentanyl (Fentanyl 25 Mcg/Hr Tdsy) 125 mcg TD Q3D@0000 [facility] Stop: 02/07/22 00:00 Fluticasone/Vilanterol (Fluticasone/Vilanterol 200/25mcg 14 Puffs/Inhaler) 1 puffs INH DAILY [facility] Stop: 02/03/22 08:59 Last Admin: 01/23/22 08:19 Dose: 1 puffs Gabapentin (Gabapentin 400 Mg Cap) 400 mg PO TID [facility] Stop: 02/13/22 04:39 Last Admin: 01/23/22 08:15 Dose: 400 mg Glucagon (Glucagon For Inj 1 Mg Vial) 1 mg SQ UD PRN; Protocol PRN Reason: Hypoglycemia Protocol Stop: 02/03/22 01:23 Glucose (Glucose 40% Gel 15 Gm Tube) 15 - 30 gm PO UD PRN; Protocol PRN Reason: Hypoglycemia Protocol Stop: 02/03/22 01:23 Glucose (Glucose 10 Tab/Tube) 4 - 8 tab PO UD PRN; Protocol PRN Reason: Hypoglycemia Treatment Stop: 02/03/22 01:23 Guaifenesin (Guaifenesin 600 Mg Tabcr) 600 mg PO Q12 [facility] Stop: 02/16/22 06:19 Last Admin: 01/23/22 08:15 Dose: 600 mg Heparin Sodium (Porcine) (Heparin Sod 5,000 Unit/0.5 Ml Vial) 5,000 units SQ Q12 [facility] Stop: 02/03/22 20:59 Last Admin: 01/04/22 21:05 Dose: 5,000 units Heparin Sodium (Porcine) (Heparin 100 Unit/Ml 5ml Flush) 5 ml FLUSH PRN PRN PRN Reason: Flush Stop: 02/05/22 10:09 Last Admin: 01/20/22 12:56 Dose: 5 ml Hydromorphone HCl (Hydromorphone Inj 0.5 Mg/0.5 Ml Syr) 0.5 mg IV Q6H PRN PRN Reason: Severe Pain Stop: 01/26/22 13:45 Last Admin: 01/23/22 06:45 Dose: 0.5 mg Promethazine HCl 12.5 mg/ (Sodium Chloride) 50.5 mls @ 202 mls/hr IV Q6H PRN PRN Reason: Nausea And Vomiting Stop: 02/02/22 23:13 Last Infusion: 01/22/22 23:47 Dose: Infused Insulin Aspart (Insulin Aspart Per Unit) 0 units SC ACHS [facility] Stop: 02/14/22 06:44 Last Admin: 01/23/22 08:25 Dose: 7 units Insulin Glargine (Lantus Per Unit Charge) 5 units SQ QAM [facility]; Protocol Stop: 02/19/22 08:59 Last Admin: 01/23/22 08:26 Dose: 5 units Insulin Glargine (Lantus Per Unit Charge) 0 units SQ HS [facility]; Protocol Stop: 02/21/22 20:59 Last Admin: 01/22/22 20:58 Dose: Not Given Lactobacillus Acidophilus (Advanced Probiotic 1250 Mg Capsule) 2 cap PO DAILY [facility] Stop: 02/03/22 08:59 Last Admin: 01/23/22 08:16 Dose: 2 cap Levetiracetam (Levetiracetam 250 Mg Tab) 750 mg PO BID [facility] Stop: 02/03/22 08:59 Last Admin: 01/23/22 08:14 Dose: 750 mg Lidocaine (Lidocaine 5% 1 Patch) [facility] [place] Stop: 02/11/22 10:44 Last Admin: 01/23/22 08:16 Dose: 2 patch Lisinopril (Lisinopril 40 Mg Tab) 40 mg PO QAM [facility] Stop: 02/03/22 01:29 Last Admin: 01/14/22 09:21 Dose: 40 mg Lorazepam (Lorazepam 0.5 Mg Tab) 0.5 mg PO HS PRN PRN Reason: Anxiety, sleep Stop: 02/06/22 20:26 Last Admin: 01/20/22 03:47 Dose: 0.5 mg Menthol (Cough Drop (Sugar Free) Larry 24 Larry/1 Box) 1 larry BUCCAL Q2H PRN PRN Reason: Sore Throat Stop: 02/16/22 06:19 Last Admin: 01/22/22 22:53 Dose: 1 larry Metoclopramide HCl (Metoclopramide Hcl 5 Mg Tablet) 5 mg PO DAILY [facility] Stop: 02/03/22 08:59 Last Admin: 01/23/22 08:15 Dose: 5 mg Miscellaneous (Carbohydrates For Hypoglycemia ) 15 - 30 gm PO UD PRN PRN Reason: Hypoglycemia Protocol Stop: 02/03/22 01:23 Last Admin: 01/22/22 20:49 Dose: 30 gm Miscellaneous (Remove Nicoderm Patch) 1 each N/A DAILY@0859 [facility] Stop: 02/05/22 08:58 Last Admin: 01/23/22 08:18 Dose: 1 each Miscellaneous (Remove Lidoderm Patch) 1 each N/A DAILY@2100 [facility] Stop: 02/10/22 04:59 Last Admin: 01/22/22 20:59 Dose: 1 each Miscellaneous (Remove Clonidine Patch) 1 each N/A CQWK@2359 [facility] Stop: 02/17/22 23:58 Last Admin: 01/19/22 00:00 Dose: 1 each Miscellaneous (Check Clonidine Patch Placement) 1 each N/A QS [facility] Stop: 02/18/22 00:00 Last Admin: 01/23/22 08:18 Dose: 1 each Miscellaneous (Fentanyl Patch Remove & Waste) 1 each N/A Q3D@2359 [facility] Stop: 02/17/22 23:58 Last Admin: 01/22/22 00:40 Dose: 1 each Miscellaneous (Check Fentanyl Patch Placement) 1 each N/A QS [facility] Stop: 02/18/22 00:00 Last Admin: 01/23/22 08:18 Dose: 1 each Miscellaneous Information (Pharmacy Glycemic Mgmt Consult) 1 each N/A UD PRN PRN Reason: Consult Stop: 02/09/22 08:21 Morphine Sulfate (Morphine Sulfate Ir 15 Mg Tab (Immediate Release)) 15 mg PO Q4HWA PRN PRN Reason: Pain Stop: 02/01/22 17:06 Last Admin: 01/22/22 19:51 Dose: 15 mg Nicotine (Nicotine 14 Mg/24 Hr Patch) 14 mg TD QAM [facility] Stop: 02/04/22 15:59 Last Admin: 01/23/22 08:13 Dose: 14 mg Olanzapine (Olanzapine 2.5 Mg Tab) 2.5 mg PO HS [facility] Stop: 02/03/22 01:23 Last Admin: 01/22/22 20:58 Dose: 2.5 mg Pantoprazole Sodium (Pantoprazole 40 Mg Tab) 40 mg PO QAM [facility] Stop: 02/03/22 08:59 Last Admin: 01/23/22 08:15 Dose: 40 mg Patiromer (Patiromer Calcium Sorbitex 8.4 Gm Pack) 16.8 gm PO DAILY@1100 [facility] Stop: 02/17/22 10:59 Last Admin: 01/22/22 15:41 Dose: 16.8 gm Senna/Docusate Sodium (Docusate Sodium/Senna 50/8.6mg Tab) 2 tab PO BID [facility] Stop: 02/10/22 08:59 Last Admin: 01/23/22 08:12 Dose: Not Given (1) Chest pain Chest pain type: unspecified Qualified Code(s): R07.9 - Chest pain, unspe cified
[2022-01-23] MEDS: PATIROMER CALCIUM SORBITEX 8.4 GM PACK PO SCH (12:02)
[2022-01-23] MEDS: MoRPHine SULFATE IR 15 MG TAB (IMMEDIATE RELEASE) PO PRN ×2 (12:02→21:15)
[2022-01-23] MEDS: HEPARIN 100 UNIT/ML 5ML FLUSH FLUSH PRN ×2 (16:06→21:34)
[2022-01-23] MEDS: OLANZAPINE 2.5 MG TAB PO SCH (21:18)
[2022-01-23] MEDS: amLODIPine BESYLATE 5 MG TAB PO SCH (21:20)
[2022-01-24] MEDS ORDERED: fentaNYL 100 MCG/HR TDSY TD SCH
[2022-01-24] MEDS ORDERED: fentaNYL 25 MCG/HR TDSY TD SCH ×2
[2022-01-24] MEDS: ACETAMINOPHEN 325 MG TAB PO SCH ×4 (04:24→20:19)
[2022-01-24] MEDS ORDERED: SODIUM CHLORIDE 0.9% 1000ML 1,000 ML IV PRN (07:00)
[2022-01-24] MEDS: CHECK CLONIDINE PATCH PLACEMENT SCH ×2 (07:53→15:49)
[2022-01-24] MEDS: CHECK fentaNYL PATCH PLACEMENT SCH ×2 (07:54→15:49)
[2022-01-24] MEDS: carvediloL 6.25 MG TAB PO SCH ×2 (07:57→20:18)
[2022-01-24] MEDS: DOCUSATE SODIUM/SENNA 50/8.6MG TAB PO SCH ×2 (07:58→20:17)
[2022-01-24] MEDS: dexAMETHasone 1 MG TAB PO SCH (07:58)
[2022-01-24] MEDS: GABAPENTIN 400 MG CAP PO SCH ×3 (07:59→20:18)
[2022-01-24] MEDS: FLUTICASONE/VILANTEROL 200/25MCG 14 PUFFS/INHALER INH SCH (07:59)
[2022-01-24] MEDS: guaiFENesin 600 MG TABCR PO SCH ×2 (08:00→20:20)
[2022-01-24] MEDS: METOCLOPRAMIDE HCL 5 MG TABLET PO SCH (08:00)
[2022-01-24] MEDS: levETIRAcetam 250 MG TAB PO SCH ×2 (08:00→20:19)
[2022-01-24] MEDS: ADVANCED PROBIOTIC 1250 MG CAPSULE PO SCH (08:00)
[2022-01-24] MEDS: NICOTINE 14 MG/24 HR PATCH TD SCH (08:01)
[2022-01-24] MEDS: LIDOCAINE 5% 1 PATCH TD SCH (08:01)
[2022-01-24] MEDS: PANTOprazole 40 MG TAB PO SCH (08:01)
[2022-01-24] MEDS: INSULIN ASPART PER UNIT SC SCH ×4 (08:03→20:15)
[2022-01-24] MEDS: LANTUS PER UNIT CHARGE SQ SCH ×2 (08:06→20:20)
[2022-01-24] MEDS: PATIROMER CALCIUM SORBITEX 8.4 GM PACK PO SCH (12:33)
[2022-01-24] MEDS: HYDROmorphone INJ 0.5 MG/0.5 ML SYR IV PRN (12:37)
[2022-01-24] MEDS ORDERED: COVID19 BIVALENT Vaccine (Booster ONLY--Pfizer) 30mcg/0.3mL IM ONE (12:57)
--- NOTE | 2022-01-24 16:03 | Hospitalist Progress Note ---
Date of Service January 24, 2022 Assessment & Plan (1) Chest pain: Plan: (1) Chest pain: Secondary to carcinoma of the lung Chest pain is atypical mostly due to metastatic disease CT chest 01/07/22 showed new bony lesions at T8, left 8th rib as well as T5-6, stable destructive lesion on left 9th rib, interval enlargement of left axillary node and stable Left upper pleural based mass Trop is normal. No ACS on EKG. Echo noted normal LV size with moderate concentric LVH without segmental wall motion abnormalities, EF of 55 to 60%. Continue carvedilol Continue po Dilaudid and fentanyl patch Lidocaine patch added for each shoulder Pain has been increasing Will increase fentanyl patch 100 mcg and will keep Dilaudid as it is Pain has not been controlled with oral Dilaudid Will discontinue Dilaudid and start with morphine IR 15 mg Q6 hourly as needed Pain has not been reasonably controlled We will increase the morphine IR to q. 4 hourly as needed His fentanyl patch will be increased to 125 mcg every 3 days from tonight Pain seems to be reasonably controlled He has been accepted to [facility] and likely to be discharged in a day or 2 if authorization goes through He received the COVID posterior as per requirement Acute on chronic anemia Chronic anemia Worsening anemia. No obvious blood loss S/p 1 PRBC with HD on 01/05/22 Hbg is 7.9 today Globin dropped to 6.1 as of 01/22/2022 and received 2 units of blood transfusion No significant blood loss from GI and or respiratory tract Hemoglobin went up to 7.7 following blood transfusion History of COPD Metastatic NSCLC status post surgery, radiation/incomplete chemotherapy secondary to intolerance Patient not a candidate for additional treatment as per recent outpatient Oncology note No acute shortness of breath and or wheezing (2) Primary cancer of left lung metastatic to other site: On 01/08/22, Previous hospitalist spoke with patient's Oncologist, Dr Lion Keith who stated no further treatment/chemo is recommended. Palliative on board Patient is not ready to transition to hospice, stated he has somethings to take care of before that. He understands prognosis is poor. Wants to continue full code for now until he is ready Radiation oncology on board S/P CT simulation for treatment planning to initiate radiation therapy Next radiation therapy schedule for tomorrow Continue dexamethasone-to milligram from 01/17/2022 for 1 week and then 1 mg for next week Palliative made referral to [facility] who will follow up with patient. Case discussed with Palliative that recommended not to increase the fentanyl patch due to risk of opioid toxicity on ESRD patient Continue Low dose of IV Dialudid 0.5 IV prn q12h while inpatient Will increase fentanyl patch 100 micrograms every 3 days Discussed with the palliative care-she has no other ways to help the patient as long as he is on dialysis and hospice will not cover that He still has 5 treatments of radiation and following that he will need to continue with outpatient dialysis Will finish the radiation treatment soon but will need to continue dialysis Has had radiation today and appreciate palliative care reevaluation today He still wants to be intubated to be seen by his family members and clearly mentioned that he can be extubated following the visit by his family members He has clearly explained and instructed that to his daughter (3) Hypertensive crisis: Presenting as headache and chest pain symptoms ?Hypertensive emergency Patient reports chronic intermittent generalized body pains for which he is on opioids (confirmed on PDMP) Concern for possible poor med adherence considering recurrent admissions; likely complicated by nausea/vomiting related to gastroparesis Continue lisinopril, clonidine Continue amlodipine and carvedilol started during this visit BP remains at the upper side and 167/93 as of today (4) Wound of left foot: CT foot does not show any osteomyelitis Related to dropfoot brace which was quite tight Ortho eval appreciated Wound care while inpatient Reports he already made appt with a newspaper editor managing [place] swelling and ecchymosis Pt said that swelling and ecchymosis improved. If worsening, will consider to get an u/s of LUE Clinically improved significantly (5) Intractable nausea and vomiting: (6) Gastroparesis: History of IBD, gastroparesis status post gastric pacemaker, symptoms better after recent pacemaker adjustment Continue antiemetics prn Hyperkalemia Mostly due to ESRD Potassium 5.9 today Case discussed with nephrology Will be managed with dialysis (7) ESRD (end stage renal disease) on dialysis: Nephrology on board Schedule for HD on // Pt had 2hr HD today Dialysis as per the cw operator Will need to continue dialysis as an outpatient (8) DM type 1 (diabetes mellitus, type 1): Recent hemoglobin A1c of 9.1 last October 2021 He had an episode of hypoglycemia today Currently on Lantus and novolog sliding scale Pharmacy on board for glycemic management Continue monitor BS closely while on Dexamethasone Blood sugar has been running high and will cover as needed with insulin Seizure disorder, stable on regimen DVT ppx no heparin subq due to low hgb Admission and Anticipated Discharge Date Admission Date: January 04, 2022 Subjective 01/17/2022 The patient was seen and examined in telemetry unit He complains to have pain and cough with black phlegm Associated with minimal shortness of breath but has not been requiring any oxygen At times he screams with the pain with nagging constant pain all the time Remains unsteady on feet 01/18/2022 The patient was seen and examined in telemetry unit His pain seems to be reasonably controlled today Denies any shortness of breath at rest Remains unsteady on feet 01/19/2022 The patient was seen and examined in telemetry unit He has been complaining of pain His medications was recently changed Denies any shortness of breath, any fever and or chills 01/20/2022 The patient was seen and examined in telemetry unit Still complains to have pain and cannot sleep at night His IV pain medications are changed 01/21/2022 The patient was seen and examined in telemetry unit His pain seems to be reasonably controlled with occasional exacerbation Has not had a sleep last night 01/22/2022 The patient was seen and examined in telemetry unit in presence of the friends He has been complaining of more pain and wants to have more pain medications He wants to go ahead with the conditional code and intubation if needed 01/23/2022 The patient was seen and examined in telemetry unit He has been very weak and lethargic and complaining of ongoing pain He still wishes to have intubation if needed 01/24/2022 The patient was seen and examined in telemetry unit He has had minor episode of near syncope this morning but no more episodes of that He could not tolerate radiation therapy today as he could not lie down He has been accepted to a senior living and likely to be going there in a day or 2 Review of Systems Review of Systems: All systems reviewed and are unremarkable except as noted below Respiratory: No shortness of breath but has cough and chest pain Physical Exam Physical Exam: Sitting at the edge of the bed with minimal shortness of breath and pain Constitutional: well developed, well nourished, + ill appearing and average body habitus Eyes: PERRL, conjunctivae normal, anicteric sclerae ENMT: external ear and nose normal, oropharynx normal Neck: trachea midline, no thyromegaly Respiratory: no respiratory distress Auscultation: + diminished lung sounds and + crackles (Left lung) Cardiovascular: Rate/Rhythm: regular rate and regular rhythm; not tachycardic Heart Sounds: normal S1 and normal S2; no murmur Extremities: + edema (1-2+ edema bilaterally.) Gastrointestinal (Abdomen): Inspection/Auscultation: normal bowel sounds; abdomen not distended Percussion/Palpation: abdomen soft; abdomen nontender Musculoskeletal: No acute arthritis in any joint Neurologic: normal touch/pain/proprioception; no focal motor deficits (Very weak and lethargic) and not confused Psychiatric: A+Ox3, euthymic affect Lymphatic: no cervical or axillary lymphadenopathy Results & Data Results & Data ([facility]) Vital Signs (Past 12 Hours) Vital Signs Temp Pulse Pulse Pulse Resp BP BP 01/24/22 15:00 74 111/62 01/24/22 14:33 71 99/62 L 01/24/22 14:27 36.5 C 69 01/24/22 11:00 36.4 C L 71 18 115/66 01/24/22 08:00 72 01/24/22 08:00 01/24/22 07:57 36.3 C L 68 16 102/62 Pulse Ox O2 Del Method O2 Flow Rate 01/24/22 15:00 01/24/22 14:33 01/24/22 14:27 01/24/22 11:00 97 Nasal Cannula 3 01/24/22 08:00 01/24/22 08:00 Nasal Cannula 6 01/24/22 07:57 90 Nasal Cannula 2 Medications Administered Current Inpatient Medications Acetaminophen (Acetaminophen 325 Mg Tab) 650 mg PO Q6H [facility] Stop: 02/03/22 15:29 Last Admin: 01/24/22 15:27 Dose: Not Given Amlodipine Besylate (Amlodipine Besylate 5 Mg Tab) 10 mg PO HS [facility] Stop: 02/03/22 20:59 Last Admin: 01/23/22 21:20 Dose: 10 mg Benzonatate (Benzonatate 100 Mg Capsule) 100 mg PO TID PRN PRN Reason: Cough Stop: 02/16/22 06:19 COVID-19 Vaccine mRNA LNP-S Bivalent (MOD) PF (Covid19 Bivalent Vaccine (Booster Only--Infinio) 30mcg/0.3ml) 0.3 ml IM .ONCE ONE Stop: 01/24/22 12:58 Carvedilol (Carvedilol 6.25 Mg Tab) 6.25 mg PO BID [facility] Stop: 02/03/22 20:59 Last Admin: 01/24/22 07:57 Dose: 6.25 mg Clonidine HCl (Clonidine Hcl 0.2 Mg/24 Hr Transderm Sys) 1 patch TD Q7D@0000 [facility] Stop: 02/18/22 00:00 Last Admin: 01/19/22 00:24 Dose: 1 patch Dexamethasone (Dexamethasone 1 Mg Tab) 2 mg PO DAILY [facility] Stop: 02/16/22 08:59 Last Admin: 01/24/22 07:58 Dose: 2 mg Dextrose (Dextrose 50% 50 Ml Syringe) 25 - 50 ml IV UD PRN; Protocol PRN Reason: Hypoglycemia Protocol Stop: 02/03/22 01:23 Last Admin: 01/22/22 21:07 Dose: 25 ml Fentanyl (Fentanyl 100 Mcg/Hr Tdsy) 100 mcg TD Q3D [facility] Stop: 02/07/22 00:00 Last Admin: 01/23/22 23:31 Dose: 100 mcg Fentanyl (Fentanyl 25 Mcg/Hr Tdsy) 25 mcg TD Q3D [facility] Stop: 02/07/22 00:00 Last Admin: 01/23/22 23:31 Dose: 25 mcg Fluticasone/Vilanterol (Fluticasone/Vilanterol 200/25mcg 14 Puffs/Inhaler) 1 puffs INH DAILY [facility] Stop: 02/03/22 08:59 Last Admin: 01/24/22 07:59 Dose: 1 puffs Gabapentin (Gabapentin 400 Mg Cap) 400 mg PO TID [facility] Stop: 02/13/22 04:39 Last Admin: 01/24/22 14:38 Dose: Not Given Glucagon (Glucagon For Inj 1 Mg Vial) 1 mg SQ UD PRN; Protocol PRN Reason: Hypoglycemia Protocol Stop: 02/03/22 01:23 Glucose (Glucose 40% Gel 15 Gm Tube) 15 - 30 gm PO UD PRN; Protocol PRN Reason: Hypoglycemia Protocol Stop: 02/03/22 01:23 Glucose (Glucose 10 Tab/Tube) 4 - 8 tab PO UD PRN; Protocol PRN Reason: Hypoglycemia Treatment Stop: 02/03/22 01:23 Guaifenesin (Guaifenesin 600 Mg Tabcr) 600 mg PO Q12 [facility] Stop: 02/16/22 06:19 Last Admin: 01/24/22 08:00 Dose: 600 mg Heparin Sodium (Porcine) (Heparin Sod 5,000 Unit/0.5 Ml Vial) 5,000 units SQ Q12 [facility] Stop: 02/03/22 20:59 Last Admin: 01/04/22 21:05 Dose: 5,000 units Heparin Sodium (Porcine) (Heparin 100 Unit/Ml 5ml Flush) 5 ml FLUSH PRN PRN PRN Reason: Flush Stop: 02/05/22 10:09 Last Admin: 01/23/22 21:34 Dose: 5 ml Hydromorphone HCl (Hydromorphone Inj 0.5 Mg/0.5 Ml Syr) 0.5 mg IV Q6H PRN PRN Reason: Severe Pain Stop: 01/26/22 13:45 Last Admin: 01/24/22 12:37 Dose: 0.5 mg Promethazine HCl 12.5 mg/ (Sodium Chloride) 50.5 mls @ 202 mls/hr IV Q6H PRN PRN Reason: Nausea And Vomiting Stop: 02/02/22 23:13 Last Infusion: 01/22/22 23:47 Dose: Infused Insulin Aspart (Insulin Aspart Per Unit) 0 units SC ACHS [facility] Stop: 02/14/22 06:44 Last Admin: 01/24/22 12:33 Dose: 5 units Insulin Glargine (Lantus Per Unit Charge) 5 units SQ QAM [facility]; Protocol Stop: 02/19/22 08:59 Last Admin: 01/24/22 08:06 Dose: 5 units Insulin Glargine (Lantus Per Unit Charge) 0 units SQ HS [facility]; Protocol Stop: 02/21/22 20:59 Last Admin: 01/23/22 21:21 Dose: 2 units Lactobacillus Acidophilus (Advanced Probiotic 1250 Mg Capsule) 2 cap PO DAILY [facility] Stop: 02/03/22 08:59 Last Admin: 01/24/22 08:00 Dose: 2 cap Levetiracetam (Levetiracetam 250 Mg Tab) 750 mg PO BID [facility] Stop: 02/03/22 08:59 Last Admin: 01/24/22 08:00 Dose: 750 mg Lidocaine (Lidocaine 5% 1 Patch) 2 patch TD QAM [facility] Stop: 02/11/22 10:44 Last Admin: 01/24/22 08:01 Dose: 2 patch Lisinopril (Lisinopril 40 Mg Tab) 40 mg PO QAM [facility] Stop: 02/03/22 01:29 Last Admin: 01/14/22 09:21 Dose: 40 mg Lorazepam (Lorazepam 0.5 Mg Tab) 0.5 mg PO HS PRN PRN Reason: Anxiety, sleep Stop: 02/06/22 20:26 Last Admin: 01/20/22 03:47 Dose: 0.5 mg Menthol (Cough Drop (Sugar Free) Marito 24 Marito/1 Box) 1 marito BUCCAL Q2H PRN PRN Reason: Sore Throat Stop: 02/16/22 06:19 Last Admin: 01/22/22 22:53 Dose: 1 marito Metoclopramide HCl (Metoclopramide Hcl 5 Mg Tablet) 5 mg PO DAILY [facility] Stop: 02/03/22 08:59 Last Admin: 01/24/22 08:00 Dose: 5 mg Miscellaneous (Carbohydrates For Hypoglycemia ) 15 - 30 gm PO UD PRN PRN Reason: Hypoglycemia Protocol Stop: 02/03/22 01:23 Last Admin: 01/22/22 20:49 Dose: 30 gm Miscellaneous (Remove Nicoderm Patch) 1 each N/A DAILY@0859 [facility] Stop: 02/05/22 08:58 Last Admin: 01/24/22 07:57 Dose: 1 each Miscellaneous (Remove Lidoderm Patch) 1 each N/A DAILY@2100 [facility] Stop: 02/10/22 04:59 Last Admin: 01/23/22 21:19 Dose: 1 each Miscellaneous (Remove Clonidine Patch) 1 each N/A CQWK@2359 [facility] Stop: 02/17/22 23:58 Last Admin: 01/19/22 00:00 Dose: 1 each Miscellaneous (Check Clonidine Patch Placement) 1 each N/A QS [facility] Stop: 02/18/22 00:00 Last Admin: 01/24/22 15:49 Dose: 1 each Miscellaneous (Fentanyl Patch Remove & Waste) 1 each N/A Q3D@2359 [facility] Stop: 02/22/22 23:58 Last Admin: 01/23/22 23:30 Dose: 1 each Miscellaneous (Check Fentanyl Patch Placement) 1 each N/A QS [facility] Stop: 02/23/22 07:59 Last Admin: 01/24/22 15:49 Dose: 1 each Miscellaneous Information (Pharmacy Glycemic Mgmt Consult) 1 each N/A UD PRN PRN Reason: Consult Stop: 02/09/22 08:21 Morphine Sulfate (Morphine Sulfate Ir 15 Mg Tab (Immediate Release)) 15 mg PO Q4HWA PRN PRN Reason: Pain Stop: 02/01/22 17:06 Last Admin: 01/23/22 21:15 Dose: 15 mg Nicotine (Nicotine 14 Mg/24 Hr Patch) 14 mg TD QAM [facility] Stop: 02/04/22 15:59 Last Admin: 01/24/22 08:01 Dose: 14 mg Olanzapine (Olanzapine 2.5 Mg Tab) 2.5 mg PO HS [facility] Stop: 02/03/22 01:23 Last Admin: 01/23/22 21:18 Dose: 2.5 mg Pantoprazole Sodium (Pantoprazole 40 Mg Tab) 40 mg PO QAM [facility] Stop: 02/03/22 08:59 Last Admin: 01/24/22 08:01 Dose: 40 mg Patiromer (Patiromer Calcium Sorbitex 8.4 Gm Pack) 16.8 gm PO DAILY@1100 [facility] Stop: 02/17/22 10:59 Last Admin: 01/24/22 12:33 Dose: 16.8 gm Senna/Docusate Sodium (Docusate Sodium/Senna 50/8.6mg Tab) 2 tab PO BID [facility] Stop: 02/10/22 08:59 Last Admin: 01/24/22 07:58 Dose: 2 tab (1) Chest pain Chest pain type: unspecified Qualified Code(s): R07.9 - Chest pain, unspecified
[2022-01-24] MEDS: OLANZAPINE 2.5 MG TAB PO SCH (20:17)
[2022-01-24] MEDS: amLODIPine BESYLATE 5 MG TAB PO SCH (20:18)
[2022-01-25] MEDS: CHECK CLONIDINE PATCH PLACEMENT SCH ×3 (00:03→16:17)
[2022-01-25] MEDS: CHECK fentaNYL PATCH PLACEMENT SCH ×3 (00:04→16:17)
[2022-01-25] MEDS: ACETAMINOPHEN 325 MG TAB PO SCH ×4 (03:16→21:19)
[2022-01-25 07:17] LABS: Base Excess ABG -1.4 mEq/L (-9-1.8); HCO3 ABG 25 mmol/L (19-24); Oxygen Saturation ABG 95.4 % (90-95); PCO2 ABG 49 mmHg (35-46); PO2 ABG 75 mmHg (80-95); pH ABG 7.32 (7.35-7.45)
[2022-01-25 07:21] LABS: Allen Test Pos (Pos)
[2022-01-25] MEDS: carvediloL 6.25 MG TAB PO SCH ×2 (07:29→21:16)
[2022-01-25] MEDS: DOCUSATE SODIUM/SENNA 50/8.6MG TAB PO SCH ×2 (07:30→21:16)
[2022-01-25] MEDS: dexAMETHasone 1 MG TAB PO SCH (07:30)
[2022-01-25] MEDS: FLUTICASONE/VILANTEROL 200/25MCG 14 PUFFS/INHALER INH SCH (07:31)
[2022-01-25] MEDS: GABAPENTIN 400 MG CAP PO SCH ×3 (07:33→21:17)
[2022-01-25] MEDS: guaiFENesin 600 MG TABCR PO SCH ×2 (07:34→21:18)
[2022-01-25] MEDS: ADVANCED PROBIOTIC 1250 MG CAPSULE PO SCH (07:35)
[2022-01-25] MEDS: PANTOprazole 40 MG TAB PO SCH (07:36)
[2022-01-25] MEDS: METOCLOPRAMIDE HCL 5 MG TABLET PO SCH (07:36)
[2022-01-25] MEDS: levETIRAcetam 250 MG TAB PO SCH ×2 (07:36→21:18)
[2022-01-25] MEDS: NICOTINE 14 MG/24 HR PATCH TD SCH (07:37)
[2022-01-25] MEDS: INSULIN ASPART PER UNIT SC SCH ×2 (09:22→11:27)
[2022-01-25] MEDS: LANTUS PER UNIT CHARGE SQ SCH (09:23)
[2022-01-25] MEDS: DEXTROSE 50% 50 ML SYRINGE IV PRN (11:19)
[2022-01-25] MEDS: LIDOCAINE 5% 1 PATCH TD SCH (11:26)
[2022-01-25] MEDS: PATIROMER CALCIUM SORBITEX 8.4 GM PACK PO SCH (11:27)
[2022-01-25] MEDS: D5W AND NSS 1,000 ML IV SCH (13:18)
--- NOTE | 2022-01-25 14:34 | Hospitalist Progress Note ---
Date of Service January 25, 2022 Assessment & Plan (1) Chest pain: Plan: (1) Chest pain: Secondary to carcinoma of the lung Chest pain is atypical mostly due to metastatic disease CT chest 01/07/22 showed new bony lesions at T8, left 8th rib as well as T5-6, stable destructive lesion on left 9th rib, interval enlargement of left axillary node and stable Left upper pleural based mass Trop is normal. No ACS on EKG. Echo noted normal LV size with moderate concentric LVH without segmental wall motion abnormalities, EF of 55 to 60%. Continue carvedilol Continue po Dilaudid and fentanyl patch Lidocaine patch added for each shoulder Pain has been increasing Will increase fentanyl patch 100 mcg and will keep Dilaudid as it is Pain has not been controlled with oral Dilaudid Will discontinue Dilaudid and start with morphine IR 15 mg Q6 hourly as needed Pain has not been reasonably controlled We will increase the morphine IR to q. 4 hourly as needed His fentanyl patch will be increased to 125 mcg every 3 days from tonight Pain seems to be reasonably controlled He has been accepted to [facility] and likely to be discharged in a day or 2 if authorization goes through He received the COVID booster as per requirement Still has minimal pain but more drowsiness Acute on chronic anemia Chronic anemia Worsening anemia. No obvious blood loss S/p 1 PRBC with HD on 01/05/22 Hbg is 7.9 today Globin dropped to 6.1 as of 01/22/2022 and received 2 units of blood transfusion No significant blood loss from GI and or respiratory tract Hemoglobin went up to 7.7 following blood transfusion History of COPD Metastatic NSCLC status post surgery, radiation/incomplete chemotherapy secondary to intolerance Patient not a candidate for additional treatment as per recent outpatient Oncology note No acute shortness of breath and or wheezing (2) Primary cancer of left lung metastatic to other site: On 01/08/22, Previous hospitalist spoke with patient's Oncologist, Dr Lion Keith who stated no further treatment/chemo is recommended. Palliative on board Patient is not ready to transition to hospice, stated he has somethings to take care of before that. He understands prognosis is poor. Wants to continue full code for now until he is ready Radiation oncology on board S/P CT simulation for treatment planning to initiate radiation therapy Next radiation therapy schedule for tomorrow Continue dexamethasone-to milligram from 01/17/2022 for 1 week and then 1 mg for next week Palliative made referral to [facility] Palliative who will follow up with patient. Case discussed with Palliative that recommended not to increase the fentanyl patch due to risk of opioid toxicity on ESRD patient Continue Low dose of IV Dialudid 0.5 IV prn q12h while inpatient Will increase fentanyl patch 100 micrograms every 3 days Discussed with the palliative care-she has no other ways to help the patient as long as he is on dialysis and hospice will not cover that He still has 5 treatments of radiation and following that he will need to continue with outpatient dialysis Will finish the radiation treatment soon but will need to continue dialysis Has had radiation today and appreciate palliative care reevaluation today He still wants to be intubated to be seen by his family members and clearly mentioned that he can be extubated following the visit by his family members He has clearly explained and instructed that to his daughter 's condition has gotten worse but is still the patient wants to be intubated in case of cardiac arrest or respiratory arrest (3) Hypertensive crisis: Presenting as headache and chest pain symptoms ?Hypertensive emergency Patient reports chronic intermittent generalized body pains for which he is on opioids (confirmed on PDMP) Concern for possible poor med adherence considering recurrent admissions; likely complicated by nausea/vomiting related to gastroparesis Continue lisinopril, clonidine Continue amlodipine and carvedilol started during this visit BP remains at the upper side and 167/93 as of today (4) Wound of left foot: CT foot does not show any osteomyelitis Related to dropfoot brace which was quite tight Ortho eval appreciated Wound care while inpatient Reports he already made appt with a justice court deputy clerk NAKULE swelling and ecchymosis Pt said that swelling and ecchymosis improved. If worsening, will consider to get an u/s of LUE Clinically improved significantly (5) Intractable nausea and vomiting: (6) Gastroparesis: History of IBD, gastroparesis status post gastric pacemaker, symptoms better after recent pacemaker adjustment Continue antiemetics prn Hyperkalemia Mostly due to ESRD Potassium 5.9 today Case discussed with nephrology Will be managed with dialysis (7) ESRD (end stage renal disease) on dialysis: Nephrology on board Schedule for HD on // Pt had 2hr HD today Dialysis as per the plate printer Will need to continue dialysis as an outpatient (8) DM type 1 (diabetes mellitus, type 1): Recent hemoglobin A1c of 9.1 last October 2021 He had an episode of hypoglycemia today Currently on Lantus and novolog sliding scale Pharmacy on board for glycemic management Continue monitor BS closely while on Dexamethasone Blood sugar has been running high and will cover as needed with insulin His blood sugar is running low received intravenous dextrose and the patient is not being able to eat and or drink that much We will start intravenous dextrose and normal saline infusion Seizure disorder, stable on regimen DVT ppx no heparin subq due to low hgb Prognosis is very poor Admission and Anticipated Discharge Date Admission Date: January 04, 2022 Subjective 01/17/2022 The patient was seen and examined in telemetry unit He complains to have pain and cough with black phlegm Associated with minimal shortness of breath but has not been requiring any oxygen At times he screams with the pain with nagging constant pain all the time Remains unsteady on feet 01/18/2022 The patient was seen and examined in telemetry unit His pain seems to be reasonably controlled today Denies any shortness of breath at rest Remains unsteady on feet 01/19/2022 The patient was seen and examined in telemetry unit He has been complaining of pain His medications was recently changed Denies any shortness of breath, any fever and or chills 01/20/2022 The patient was seen and examined in telemetry unit Still complains to have pain and cannot sleep at night His IV pain medications are changed 01/21/2022 The patient was seen and examined in telemetry unit His pain seems to be reasonably controlled with occasional exacerbation Has not had a sleep last night 01/22/2022 The patient was seen and examined in telemetry unit in presence of the friends He has been complaining of more pain and wants to have more pain medications He wants to go ahead with the conditional code and intubation if needed 01/23/2022 The patient was seen and examined in telemetry unit He has been very weak and lethargic and complaining of ongoing pain He still wishes to have intubation if needed 01/24/2022 The patient was seen and examined in telemetry unit He has had minor episode of near syncope this morning but no more episodes of that He could not tolerate radiation therapy today as he could not lie down [facility] and likely to be going there in a day or 2 01/25/2022 The patient was seen and examined in telemetry unit He has not been doing great today and complains to have extremely weakness and tiredness with moderate shortness of breath at rest Still complains to pain Blood sugar was low and he was started with intravenous dextrose and an normal saline infusion Review of Systems Review of Systems: All systems reviewed and are unremarkable except as noted below Respiratory: No shortness of breath but has cough and chest pain Physical Exam Physical Exam: Lying in bed very drowsy and lethargic Constitutional: well developed, well nourished, + ill appearing and average body habitus Eyes: PERRL, conjunctivae normal, anicteric sclerae ENMT: external ear and nose normal, oropharynx normal Neck: trachea midline, no thyromegaly Respiratory: no respiratory distress Auscultation: + diminished lung sounds and + crackles (Left lung) Cardiovascular: Rate/Rhythm: regular rate and regular rhythm; not tachycardic Heart Sounds: normal S1 and normal S2; no murmur Extremities: + edema (1-2+ edema bilaterally.) Gastrointestinal (Abdomen): Inspection/Auscultation: normal bowel sounds; abdomen not distended Percussion/Palpation: abdomen soft; abdomen nontender Neurologic: normal touch/pain/proprioception; no focal motor deficits (Very weak and lethargic) and not confused Psychiatric: A+Ox3, euthymic affect Lymphatic: no cervical or axillary lymphadenopathy Results & Data Results & Data ([facility]) Vital Signs (Past 12 Hours) Vital Signs Temp Pulse Pulse Resp BP Pulse Ox O2 Del Method 01/25/22 12:00 37.2 C 73 18 113/61 92 Nasal Cannula 01/25/22 08:00 74 01/25/22 08:00 Nasal Cannula 01/25/22 08:06 37.4 C 78 20 132/77 93 Nasal Cannula 01/25/22 02:28 36.5 C 78 16 121/63 92 Nasal Cannula O2 Flow Rate 01/25/22 12:00 3.0 01/25/22 08:00 01/25/22 08:00 3 01/25/22 08:06 3.0 01/25/22 02:28 Medications Administered Current Inpatient Medications Acetaminophen (Acetaminophen 325 Mg Tab) 650 mg PO Q6H DAMIR Stop: 02/03/22 15:29 Last Admin: 01/25/22 14:06 Dose: Not Given Amlodipine Besylate (Amlodipine Besylate 5 Mg Tab) 10 mg PO HS DAMIR Stop: 02/03/22 20:59 Last Admin: 01/24/22 20:18 Dose: 10 mg Benzonatate (Benzonatate 100 Mg Capsule) 100 mg PO TID PRN PRN Reason: Cough Stop: 02/16/22 06:19 Carvedilol (Carvedilol 6.25 Mg Tab) 6.25 mg PO BID DAMIR Stop: 02/03/22 20:59 Last Admin: 01/25/22 07:29 Dose: 6.25 mg Clonidine HCl (Clonidine Hcl 0.2 Mg/24 Hr Transderm Sys) 1 patch TD Q7D@0000 DAMIR Stop: 02/18/22 00:00 Last Admin: 01/19/22 00:24 Dose: 1 patch Dexamethasone (Dexamethasone 1 Mg Tab) 2 mg PO DAILY [facility] Stop: 02/16/22 08:59 Last Admin: 01/25/22 07:30 Dose: 2 mg Dextrose (Dextrose 50% 50 Ml Syringe) 25 - 50 ml IV UD PRN; Protocol PRN Reason: Hypoglycemia Protocol Stop: 02/03/22 01:23 Last Admin: 01/25/22 11:19 Dose: 25 ml Fentanyl (Fentanyl 100 Mcg/Hr Tdsy) 100 mcg TD Q3D [facility] Stop: 02/07/22 00:00 Last Admin: 01/23/22 23:31 Dose: 100 mcg Fentanyl (Fentanyl 25 Mcg/Hr Tdsy) 25 mcg TD Q3D [facility] Stop: 02/07/22 00:00 Last Admin: 01/23/22 23:31 Dose: 25 mcg Fluticasone/Vilanterol (Fluticasone/Vilanterol 200/25mcg 14 Puffs/Inhaler) 1 puffs INH DAILY [facility] Stop: 02/03/22 08:59 Last Admin: 01/25/22 07:31 Dose: 1 puffs Gabapentin (Gabapentin 400 Mg Cap) 400 mg PO TID [facility] Stop: 02/13/22 04:39 Last Admin: 01/25/22 14:06 Dose: Not Given Glucagon (Glucagon For Inj 1 Mg Vial) 1 mg SQ UD PRN; Protocol PRN Reason: Hypoglycemia Protocol Stop: 02/03/22 01:23 Glucose (Glucose 40% Gel 15 Gm Tube) 15 - 30 gm PO UD PRN; Protocol PRN Reason: Hypoglycemia Protocol Stop: 02/03/22 01:23 Glucose (Glucose 10 Tab/Tube) 4 - 8 tab PO UD PRN; Protocol PRN Reason: Hypoglycemia Treatment Stop: 02/03/22 01:23 Guaifenesin (Guaifenesin 600 Mg Tabcr) 600 mg PO Q12 [facility] Stop: 02/16/22 06:19 Last Admin: 01/25/22 07:34 Dose: 600 mg Heparin Sodium (Porcine) (Heparin Sod 5,000 Unit/0.5 Ml Vial) 5,000 units SQ Q12 [facility] Stop: 02/03/22 20:59 Last Admin: 01/04/22 21:05 Dose: 5,000 units Heparin Sodium (Porcine) (Heparin 100 Unit/Ml 5ml Flush) 5 ml FLUSH PRN PRN PRN Reason: Flush Stop: 02/05/22 10:09 Last Admin: 01/23/22 21:34 Dose: 5 ml Hydromorphone HCl (Hydromorphone Inj 0.5 Mg/0.5 Ml Syr) 0.5 mg IV Q2H PRN PRN Reason: Severe Pain Stop: 02/03/22 09:53 Promethazine HCl 12.5 mg/ (Sodium Chloride) 50.5 mls @ 202 mls/hr IV Q6H PRN PRN Reason: Nausea And Vomiting Stop: 02/02/22 23:13 Last Infusion: 01/22/22 23:47 Dose: Infused Dextrose/Sodium Chloride (D5w And Nss) 1,000 mls @ 80 mls/hr IV .[id number] [facility] Stop: 02/24/22 12:44 Last Admin: 01/25/22 13:18 Dose: 80 mls/hr Sodium Chloride (Nss 1000ml) 1,000 mls @ 0 mls/hr IV .Q0M PRN PRN Reason: For Hemodialysis Use ONLY Stop: 01/26/22 12:59 Insulin Aspart (Insulin Aspart Per Unit) 0 units SC ACHS [facility] Stop: 02/14/22 06:44 Last Admin: 01/25/22 11:27 Dose: Not Given Insulin Glargine (Lantus Per Unit Charge) 5 units SQ QAM [facility]; Protocol Stop: 02/19/22 08:59 Last Admin: 01/25/22 09:23 Dose: Not Given Insulin Glargine (Lantus Per Unit Charge) 0 units SQ HS [facility]; Protocol Stop: 02/21/22 20:59 Last Admin: 01/24/22 20:20 Dose: Not Given Lactobacillus Acidophilus (Advanced Probiotic 1250 Mg Capsule) 2 cap PO DAILY [facility] Stop: 02/03/22 08:59 Last Admin: 01/25/22 07:35 Dose: 2 cap Levetiracetam (Levetiracetam 250 Mg Tab) 750 mg PO BID [facility] Stop: 02/03/22 08:59 Last Admin: 01/25/22 07:36 Dose: 750 mg Lidocaine (Lidocaine 5% 1 Patch) 2 patch TD QAM [facility] Stop: 02/11/22 10:44 Last Admin: 01/25/22 11:26 Dose: Not Given Lisinopril (Lisinopril 40 Mg Tab) 40 mg PO QAM [facility] Stop: 02/03/22 01:29 Last Admin: 01/14/22 09:21 Dose: 40 mg Lorazepam (Lorazepam 0.5 Mg Tab) 0.5 mg PO HS PRN PRN Reason: Anxiety, sleep Stop: 02/06/22 20:26 Last Admin: 01/20/22 03:47 Dose: 0.5 mg Menthol (Cough Drop (Sugar Free) Marito 24 Marito/1 Box) 1 marito BUCCAL Q2H PRN PRN Reason: Sore Throat Stop: 02/16/22 06:19 Last Admin: 01/22/22 22:53 Dose: 1 marito Metoclopramide HCl (Metoclopramide Hcl 5 Mg Tablet) 5 mg PO DAILY [facility] Stop: 02/03/22 08:59 Last Admin: 01/25/22 07:36 Dose: 5 mg Miscellaneous (Carbohydrates For Hypoglycemia ) 15 - 30 gm PO UD PRN PRN Reason: Hypoglycemia Protocol Stop: 02/03/22 01:23 Last Admin: 01/22/22 20:49 Dose: 30 gm Miscellaneous (Remove Nicoderm Patch) 1 each N/A DAILY@0859 [facility] Stop: 02/05/22 08:58 Last Admin: 01/25/22 07:29 Dose: 1 each Miscellaneous (Remove Lidoderm Patch) 1 each N/A DAILY@2100 [facility] Stop: 02/10/22 04:59 Last Admin: 01/24/22 20:22 Dose: 1 each Miscellaneous (Remove Clonidine Patch) 1 each N/A CQWK@2359 [facility] Stop: 02/17/22 23:58 Last Admin: 01/19/22 00:00 Dose: 1 each Miscellaneous (Check Clonidine Patch Placement) 1 each N/A QS [facility] Stop: 02/18/22 00:00 Last Admin: 01/25/22 07:28 Dose: 1 each Miscellaneous (Fentanyl Patch Remove & Waste) 1 each N/A Q3D@2359 [facility] Stop: 02/22/22 23:58 Last Admin: 01/23/22 23:30 Dose: 1 each Miscellaneous (Check Fentanyl Patch Placement) 1 each N/A QS [facility] Stop: 02/23/22 07:59 Last Admin: 01/25/22 07:29 Dose: 1 each Miscellaneous Information (Pharmacy Glycemic Mgmt Consult) 1 each N/A UD PRN PRN Reason: Consult Stop: 02/09/22 08:21 Nicotine (Nicotine 14 Mg/24 Hr Patch) 14 mg TD [facility] Stop: 02/04/22 15:59 Last Admin: 01/25/22 07:37 Dose: 14 mg Olanzapine (Olanzapine 2.5 Mg Tab) 2.5 mg PO HS [facility] Stop: 02/03/22 01:23 Last Admin: 01/24/22 20:17 Dose: 2.5 mg Pantoprazole Sodium (Pantoprazole 40 Mg Tab) [facility] [place]: 02/03/22 08:59 Last Admin: 01/25/22 07:36 Dose: 40 mg Patiromer (Patiromer Calcium Sorbitex 8.4 Gm Pack) 16.8 gm PO DAILY@1100 [facility] Stop: 02/17/22 10:59 Last Admin: 01/25/22 11:27 Dose: Not Given Senna/Docusate Sodium (Docusate Sodium/Senna 50/8.6mg Tab) 2 tab PO BID [facility] Stop: 02/10/22 08:59 Last Admin: 01/25/22 07:30 Dose: 2 tab (1) Chest pain Chest pain type: unspecified Qualified Code(s): R07.9 - Chest pain, unspecified
--- NOTE | 2022-01-25 14:52 | Palliative Care Progress Note ---
Date of Service January 25, 2022 Assessment & Plan (1) Chest pain: Plan: No prn morphine in nearly 48 hours. Concerned that change in status may be related to opioid toxicity. Given renal failure, will stop morphine which would be most likely contributor to opioid toxicity. Continue hydromorphone prn. (2) Palliative care encounter: Plan: I talked to Jeff at length and spoke with his father and daughter. The first thing Jeff said to me is that he thinks that he is dying. He is tearful and tells me that he is hurting badly. We talked about concerns that medication may be contributing to his lethargy and the risk for oversedation. He has had narcan in the past and having to do that again would be devastating for his pain control. We talked about what he would want his dying time to be like. He has repeatedly said that he is not a quitter and he does not want his family to think of him as a quitter. We talked about how hard he has fought for many years and that he is still fighting to have meaningful time with his family before his . Unfortunately, we are likely approaching his dying time. We talked about concern that intubation would limit his ablility to communicate with his family and not change the outcome. He tells me that he does not want to be kept alive on machines and after conversation with his father and daughter, he has decided that he wants to be DNR. Family is coming in today so that they can have quality time with him to say goodbyes and have important discussions. With his consent, I have increased the frequency on hydromorphone prn dosing, knowing that he may be more sedated with medication. We talked about dialysis and he has repeatedly said that he feels that would be suicide to choose to stop dialysis. He asked me which way would give him more time. I unfortunately can't say whether he would have more time with dialysis but he would have more control over how his dying time would look. We talked about option for shift of focus to comfort care with opioid infusion where his family could be at bedside for his dying time. For now, we will see how he feels in the morning and how he feels about dialysis. Code status changed to DNR per his wishes. Discussed with RN. Admission and Anticipated Discharge Date Admission Date: January 04, 2022 Subjective Lethargic, increased weakness, confused at times. Vital signs stable. Review of Systems Review of Systems: ESAS Pain 3/3 Dyspnea 1/3 Nausea 0/3 Anxiety 2/3 Drowsiness 1/3 PPS 40% Physical Exam Constitutional: + ill appearing Respiratory: + uses accessory muscles Cardiovascular: Rate/Rhythm: regular rate and regular rhythm Extremities: + edema Skin: warm and dry Neurologic: Speech / Cognition: normal cognition Results & Data ([facility]) Vital Signs (Past 12 Hours) Vital Signs Temp Pulse Pulse Resp BP Pulse Ox O2 Del Method 01/25/22 12:00 99.0 F 73 18 113/61 92 Nasal Cannula 01/25/22 08:00 74 01/25/22 08:00 Nasal Cannula 01/25/22 08:06 99.3 F 78 20 132/77 93 Nasal Cannula O2 Flow Rate 01/25/22 12:00 3.0 01/25/22 08:00 01/25/22 08:00 3 01/25/22 08:06 3.0 PG Care Time/CCT Total # of Minutes Spent Total Time Spent: 80 Total Time Spent with Patient: Total time spent is greater than 50% in coordination of care (as documented) at patient's floor/unit and/or counseling patient: goals of care, code status, symptom management, patient and family education and support Coding Level of Care Code 44790 Prolonged Care (int'l) Diagnoses Chest pain R07.9 Chest pain type: unspecified Palliative care encounter Z51.5 (1) Chest pain Chest pain type: unspecified Qualified Code(s): R07.9 - Chest pain, unspecified
[2022-01-25] MEDS: HYDROmorphone INJ 0.5 MG/0.5 ML SYR IV PRN ×3 (16:16→22:07)
[2022-01-25] MEDS: amLODIPine BESYLATE 5 MG TAB PO SCH (21:15)
[2022-01-25] MEDS: OLANZAPINE 2.5 MG TAB PO SCH (21:19)
[2022-01-26] MEDS: CHECK CLONIDINE PATCH PLACEMENT SCH ×4 (00:26→23:50)
[2022-01-26] MEDS: CHECK fentaNYL PATCH PLACEMENT SCH ×2 (00:28→08:40)
[2022-01-26] MEDS: D5W AND NSS 1,000 ML IV SCH (02:02)
[2022-01-26] MEDS: ACETAMINOPHEN 325 MG TAB PO SCH ×2 (05:19→08:43)
[2022-01-26] MEDS ORDERED: SODIUM CHLORIDE 0.9% 1000ML 1,000 ML IV PRN (07:00)
[2022-01-26] MEDS: HYDROmorphone INJ 0.5 MG/0.5 ML SYR IV PRN ×5 (08:34→21:25)
[2022-01-26] MEDS: LIDOCAINE 5% 1 PATCH TD SCH (08:36)
[2022-01-26] MEDS: dexAMETHasone 1 MG TAB PO SCH (08:37)
[2022-01-26] MEDS: FLUTICASONE/VILANTEROL 200/25MCG 14 PUFFS/INHALER INH SCH (08:37)
[2022-01-26] MEDS: ADVANCED PROBIOTIC 1250 MG CAPSULE PO SCH (08:38)
[2022-01-26] MEDS: guaiFENesin 600 MG TABCR PO SCH (08:38)
[2022-01-26] MEDS: levETIRAcetam 250 MG TAB PO SCH ×2 (08:39→20:38)
[2022-01-26] MEDS: GABAPENTIN 400 MG CAP PO SCH ×3 (08:39→20:38)
[2022-01-26] MEDS: carvediloL 6.25 MG TAB PO SCH ×2 (08:39→20:39)
[2022-01-26] MEDS: DOCUSATE SODIUM/SENNA 50/8.6MG TAB PO SCH ×2 (08:40→20:38)
[2022-01-26] MEDS: METOCLOPRAMIDE HCL 5 MG TABLET PO SCH (08:41)
[2022-01-26] MEDS: NICOTINE 14 MG/24 HR PATCH TD SCH (08:42)
[2022-01-26] MEDS: PANTOprazole 40 MG TAB PO SCH (08:43)
[2022-01-26] MEDS ORDERED: STAT IV Infusion **Titration per Protocol STA (09:26)
[2022-01-26] MEDS ORDERED: HYDROmorphone/NSS 100 MG/100 ML BAG IV SCH (09:30)
[2022-01-26] MEDS ORDERED: PROMETHAZINE HCL 12.5 MG in SODIUM CHLORIDE 0.9% 50 ML IV PRN (09:33)
[2022-01-26] MEDS ORDERED: ATROPINE SULFATE 1% OP SOLN 5 ML BTL SL PRN (09:33)
[2022-01-26] MEDS ORDERED: LORazepam 0.5 MG in SYRINGE 0.25 ML IV PRN (09:33)
--- NOTE | 2022-01-26 09:42 | Hospitalist Progress Note ---
Date of Service January 26, 2022 Assessment & Plan (1) Chest pain: Plan: (1) Chest pain: Secondary to carcinoma of the lung Chest pain is atypical mostly due to metastatic disease CT chest 01/07/22 showed new bony lesions at T8, left 8th rib as well as T5-6, stable destructive lesion on left 9th rib, interval enlargement of left axillary node and stable Left upper pleural based mass Trop is normal. No ACS on EKG. Echo noted normal LV size with moderate concentric LVH without segmental wall motion abnormalities, EF of 55 to 60%. Continue carvedilol Continue po Dilaudid and fentanyl patch Lidocaine patch added for each shoulder Pain has been increasing Will increase fentanyl patch 100 mcg and will keep Dilaudid as it is Pain has not been controlled with oral Dilaudid Will discontinue Dilaudid and start with morphine IR 15 mg Q6 hourly as needed Pain has not been reasonably controlled We will increase the morphine IR to q. 4 hourly as needed His fentanyl patch will be increased to 125 mcg every 3 days from tonight Pain seems to be reasonably controlled He has been accepted to [facility] and likely to be discharged in a day or 2 if authorization goes through He received the COVID booster as per requirement Pain has been worse as of today and the patient wanted to have more pain medications Appreciate palliative care input and recommendation for morphine/Dilaudid drip to control pain Discussed with the patient in detail and the patient wanted to have morphine drip and no more dialysis He is going to call the family members to come and talk to him while he can do so Acute on chronic anemia Chronic anemia Worsening anemia. No obvious blood loss S/p 1 PRBC with HD on 01/05/22 Hbg is 7.9 today Globin dropped to 6.1 as of 01/22/2022 and received 2 units of blood transfusion No significant blood loss from GI and or respiratory tract Hemoglobin went up to 7.7 following blood transfusion History of COPD Metastatic NSCLC status post surgery, radiation/incomplete chemotherapy secondary to intolerance Patient not a candidate for additional treatment as per recent outpatient Oncology note No acute shortness of breath and or wheezing (2) Primary cancer of left lung metastatic to other site: On 01/08/22, Previous hospitalist spoke with patient's Oncologist, Dr Lion Keith who stated no further treatment/chemo is recommended. Palliative on board Patient is not ready to transition to hospice, stated he has somethings to take care of before that. He understands prognosis is poor. Wants to continue full code for now until he is ready Radiation oncology on board S/P CT simulation for treatment planning to initiate radiation therapy Next radiation therapy schedule for tomorrow Continue dexamethasone-to milligram from 01/17/2022 for 1 week and then 1 mg for next week Palliative made referral to [facility] who will follow up with patient. Case discussed with Palliative that recommended not to increase the fentanyl patch due to risk of opioid toxicity on ESRD patient Continue Low dose of IV Dialudid 0.5 IV prn q12h while inpatient Will increase fentanyl patch 100 micrograms every 3 days Discussed with the palliative care-she has no other ways to help the patient as long as he is on dialysis and hospice will not cover that He still has 5 treatments of radiation and following that he will need to continue with outpatient dialysis Will finish the radiation treatment soon but will need to continue dialysis Has had radiation today and appreciate palliative care reevaluation today He still wants to be intubated to be seen by his family members and clearly mentioned that he can be extubated following the visit by his family members He has clearly explained and instructed that to his daughter 's condition has gotten worse but is still the patient wants to be intubated in case of cardiac arrest or respiratory arrest He has been put on comfort care from this morning Adequate symptomatic medications will be provided to give him comfortable (3) Hypertensive crisis: Presenting as headache and chest pain symptoms ?Hypertensive emergency Patient reports chronic intermittent generalized body pains for which he is on opioids (confirmed on PDMP) Concern for possible poor med adherence considering recurrent admissions; likely complicated by nausea/vomiting related to gastroparesis Continue lisinopril, clonidine Continue amlodipine and carvedilol started during this visit BP remains at the upper side and 167/93 as of today (4) Wound of left foot: CT foot does not show any osteomyelitis Related to dropfoot brace which was quite tight Ortho eval appreciated Wound care while inpatient Reports he already made appt with a telesales manager NAKULE swelling and ecchymosis Pt said that swelling and ecchymosis improved. If worsening, will consider to get an u/s of LUE Clinically improved significantly (5) Intractable nausea and vomiting: (6) Gastroparesis: History of IBD, gastroparesis status post gastric pacemaker, symptoms better after recent pacemaker adjustment Continue antiemetics prn Hyperkalemia Mostly due to ESRD Potassium 5.9 today Case discussed with nephrology Will be managed with dialysis (7) ESRD (end stage renal disease) on dialysis: Nephrology on board Schedule for HD on // Pt had 2hr HD today Dialysis as per the top collar baster Will need to continue dialysis as an outpatient (8) DM type 1 (diabetes mellitus, type 1): Recent hemoglobin A1c of 9.1 last October 2021 He had an episode of hypoglycemia today Currently on Lantus and novolog sliding scale Pharmacy on board for glycemic management Continue monitor BS closely while on Dexamethasone Blood sugar has been running high and will cover as needed with insulin His blood sugar is running low received intravenous dextrose and the patient is not being able to eat and or drink that much We will start intravenous dextrose and normal saline infusion Seizure disorder, stable on regimen DVT ppx no heparin subq due to low hgb Prognosis is very poor The family members will be called Admission and Anticipated Discharge Date Admission Date: January 04, 2022 Subjective 01/17/2022 The patient was seen and examined in telemetry unit He complains to have pain and cough with black phlegm Associated with minimal shortness of breath but has not been requiring any oxygen At times he screams with the pain with nagging constant pain all the time Remains unsteady on feet 01/18/2022 The patient was seen and examined in telemetry unit His pain seems to be reasonably controlled today Denies any shortness of breath at rest Remains unsteady on feet 01/19/2022 The patient was seen and examined in telemetry unit He has been complaining of pain His medications was recently changed Denies any shortness of breath, any fever and or chills 01/20/2022 The patient was seen and examined in telemetry unit Still complains to have pain and cannot sleep at night His IV pain medications are changed 01/21/2022 The patient was seen and examined in telemetry unit His pain seems to be reasonably controlled with occasional exacerbation Has not had a sleep last night 01/22/2022 The patient was seen and examined in telemetry unit in presence of the friends He has been complaining of more pain and wants to have more pain medications He wants to go ahead with the conditional code and intubation if needed 01/23/2022 The patient was seen and examined in telemetry unit He has been very weak and lethargic and complaining of ongoing pain He still wishes to have intubation if needed 01/24/2022 The patient was seen and examined in telemetry unit He has had minor episode of near syncope this morning but no more episodes of that He could not tolerate radiation therapy today as he could not lie down He has been accepted to a snf and likely to be going there in a day or 2 01/25/2022 The patient was seen and examined in telemetry unit He has not been doing great today and complains to have extremely weakness and tiredness with moderate shortness of breath at rest Still complains to pain Blood sugar was low and he was started with intravenous dextrose and an normal saline infusion 01/26/2022 Patient was seen and examined in telemetry unit He has been very lethargic and complains to have more pain Denies any increasing shortness of breath He does not want anymore dialysis Review of Systems Review of Systems: Unobtainable due to cognitive status Physical Exam Physical Exam: Lying in bed very drowsy and lethargic and in pain Constitutional: well developed, well nourished, + ill appearing and average body habitus Eyes: PERRL, conjunctivae normal, anicteric sclerae ENMT: external ear and nose normal, oropharynx normal Neck: trachea midline, no thyromegaly Respiratory: no respiratory distress Auscultation: + diminished lung sounds and + crackles (Left lung) Cardiovascular: Rate/Rhythm: regular rate and regular rhythm; not tachycardic Heart Sounds: normal S1 and normal S2; no murmur Extremities: + edema (1-2+ edema bilaterally.) Gastrointestinal (Abdomen): Inspection/Auscultation: normal bowel sounds; abdomen not distended Percussion/Palpation: abdomen soft; abdomen nontender Neurologic: normal touch/pain/proprioception; no focal motor deficits (Very weak and lethargic) and not confused Psychiatric: A+Ox3, euthymic affect Lymphatic: no cervical or axillary lymphadenopathy Results & Data Results & Data ([facility]) Vital Signs (Past 12 Hours) Vital Signs Temp Pulse Pulse Resp BP Pulse Ox O2 Del Method 01/26/22 06:35 36.6 C 73 20 132/74 91 Room Air 01/26/22 03:18 36.6 C 71 20 141/76 H 93 Room Air 01/25/22 21:55 83 01/26/22 01:56 Nasal Cannula 01/25/22 22:57 36.6 C 76 18 144/79 H 95 Room Air 01/25/22 22:12 161/83 H O2 Flow Rate 01/26/22 06:35 01/26/22 03:18 01/25/22 21:55 01/26/22 01:56 3 01/25/22 22:57 01/25/22 22:12 Medications Administered Current Inpatient Medications Acetaminophen (Acetaminophen 325 Mg Tab) 650 mg PO Q6H DAMIR Stop: 02/03/22 15:29 Last Admin: 01/26/22 08:43 Dose: 650 mg Amlodipine Besylate (Amlodipine Besylate 5 Mg Tab) 10 mg PO HS DAMIR Stop: 02/03/22 20:59 Last Admin: 01/25/22 21:15 Dose: 10 mg Atropine Sulfate (Atropine Sulfate 1% Op Soln 5 Ml Btl) 4 drops SL Q1H PRN PRN Reason: Secretions or pulm congestion Stop: 02/25/22 09:32 Benzonatate (Benzonatate 100 Mg Capsule) 100 mg PO TID PRN PRN Reason: Cough Stop: 02/16/22 06:19 Carvedilol (Carvedilol 6.25 Mg Tab) 6.25 mg PO BID DAMIR Stop: 02/03/22 20:59 Last Admin: 01/26/22 08:39 Dose: 6.25 mg Clonidine HCl (Clonidine Hcl 0.2 Mg/24 Hr Transderm Sys) 1 patch TD Q7D@0000 DAMIR Stop: 02/18/22 00:00 Last Admin: 01/26/22 00:28 Dose: 1 patch Dexamethasone (Dexamethasone 1 Mg Tab) 2 mg PO DAILY [facility] Stop: 02/16/22 08:59 Last Admin: 01/26/22 08:37 Dose: 2 mg Dextrose (Dextrose 50% 50 Ml Syringe) 25 - 50 ml IV UD PRN; Protocol PRN Reason: Hypoglycemia Protocol Stop: 02/03/22 01:23 Last Admin: 01/25/22 11:19 Dose: 25 ml Fentanyl (Fentanyl 100 Mcg/Hr Tdsy) 100 mcg TD Q3D [facility]IR Stop: 02/07/22 00:00 Last Admin: 01/23/22 23:31 Dose: 100 mcg Fentanyl (Fentanyl 25 Mcg/Hr Tdsy) 25 mcg TD Q3D [facility] Stop: 02/07/22 00:00 Last Admin: 01/23/22 23:31 Dose: 25 mcg Fluticasone/Vilanterol (Fluticasone/Vilanterol 200/25mcg 14 Puffs/Inhaler) 1 puffs INH DAILY [facility] Stop: 02/03/22 08:59 Last Admin: 01/26/22 08:37 Dose: 1 puffs Gabapentin (Gabapentin 400 Mg Cap) 400 mg PO TID [facility] Stop: 02/13/22 04:39 Last Admin: 01/26/22 08:39 Dose: 400 mg Glucagon (Glucagon For Inj 1 Mg Vial) 1 mg SQ UD PRN; Protocol PRN Reason: Hypoglycemia Protocol Stop: 02/03/22 01:23 Glucose (Glucose 40% Gel 15 Gm Tube) 15 - 30 gm PO UD PRN; Protocol PRN Reason: Hypoglycemia Protocol Stop: 02/03/22 01:23 Glucose (Glucose 10 Tab/Tube) 4 - 8 tab PO UD PRN; Protocol PRN Reason: Hypoglycemia Treatment Stop: 02/03/22 01:23 Guaifenesin (Guaifenesin 600 Mg Tabcr) 600 mg PO Q12 [facility] Stop: 02/16/22 06:19 Last Admin: 01/26/22 08:38 Dose: 600 mg Heparin Sodium (Porcine) (Heparin Sod 5,000 Unit/0.5 Ml Vial) 5,000 units SQ Q12 [facility] Stop: 02/03/22 20:59 Last Admin: 01/04/22 21:05 Dose: 5,000 units Heparin Sodium (Porcine) (Heparin 100 Unit/Ml 5ml Flush) 5 ml FLUSH PRN PRN PRN Reason: Flush Stop: 02/05/22 10:09 Last Admin: 01/23/22 21:34 Dose: 5 ml Promethazine HCl 12.5 mg/ (Sodium Chloride) 50.5 mls @ 202 mls/hr IV Q6H PRN PRN Reason: Nausea And Vomiting Stop: 02/02/22 23:13 Last Infusion: 01/22/22 23:47 Dose: Infused Dextrose/Sodium Chloride (D5w And Nss) 1,000 mls @ 80 mls/hr IV .[id number] [facility] Stop: 02/24/22 12:44 Last Admin: 01/26/22 02:02 Dose: 80 mls/hr Sodium Chloride (Nss 1000ml) 1,000 mls @ 0 mls/hr IV .Q0M PRN PRN Reason: For Hemodialysis Use ONLY Stop: 01/26/22 12:59 Hydromorphone HCl (Dilaudid/Nss) 100 mg in 100 mls @ 0.2 mls/hr IV .Q96H [facility]IR; Protocol Stop: 02/09/22 09:29 Promethazine HCl 12.5 mg/ (Sodium Chloride) 50.5 mls @ 202 mls/hr IV Q6H PRN PRN Reason: Nausea &/or Vomiting Stop: 02/25/22 09:32 Lorazepam 0.5 mg/ Syringe 0.5 mls @ 2 mls/min IV Q4H PRN PRN Reason: Anxiety/Agitation Stop: 02/25/22 09:32 Insulin Aspart (Insulin Aspart Per Unit) 0 units SC ACHS [facility] Stop: 02/14/22 06:44 Last Admin: 01/25/22 11:27 Dose: Not Given Insulin Glargine (Lantus Per Unit Charge) 5 units SQ QAM [facility]; Protocol Stop: 02/19/22 08:59 Last Admin: 01/25/22 09:23 Dose: Not Given Insulin Glargine (Lantus Per Unit Charge) 0 units SQ HS [facility]; Protocol Stop: 02/21/22 20:59 Last Admin: 01/24/22 20:20 Dose: Not Given Lactobacillus Acidophilus (Advanced Probiotic 1250 Mg Capsule) 2 cap PO DAILY [facility] Stop: 02/03/22 08:59 Last Admin: 01/26/22 08:38 Dose: 2 cap Levetiracetam (Levetiracetam 250 Mg Tab) 750 mg PO BID [facility] Stop: 02/03/22 08:59 Last Admin: 01/26/22 08:39 Dose: 750 mg Lidocaine (Lidocaine 5% 1 Patch) 2 [facility] Stop: 02/11/22 10:44 Last Admin: 01/26/22 08:36 Dose: Not Given Lisinopril (Lisinopril 40 Mg Tab) 40 mg PO QAM [facility] Stop: 02/03/22 01:29 Last Admin: 01/14/22 09:21 Dose: 40 mg Lorazepam (Lorazepam 0.5 Mg Tab) 0.5 mg PO HS PRN PRN Reason: Anxiety, sleep Stop: 02/06/22 20:26 Last Admin: 01/20/22 03:47 Dose: 0.5 mg Menthol (Cough Drop (Sugar Free) Marito 24 Marito/1 Box) 1 marito BUCCAL Q2H PRN PRN Reason: Sore Throat Stop: 02/16/22 06:19 Last Admin: 01/22/22 22:53 Dose: 1 marito Metoclopramide HCl (Metoclopramide Hcl 5 Mg Tablet) 5 mg PO DAILY [facility] Stop: 02/03/22 08:59 Last Admin: 01/26/22 08:41 Dose: 5 mg Miscellaneous (Carbohydrates For Hypoglycemia ) 15 - 30 gm PO UD PRN PRN Reason: Hypoglycemia Protocol Stop: 02/03/22 01:23 Last Admin: 01/22/22 20:49 Dose: 30 gm Miscellaneous (Remove Nicoderm Patch) 1 each N/A DAILY@0859 [facility] Stop: 02/05/22 08:58 Last Admin: 01/26/22 08:36 Dose: Not Given Miscellaneous (Remove Lidoderm Patch) 1 each N/A DAILY@2100 [facility] Stop: 02/10/22 04:59 Last Admin: 01/25/22 22:00 Dose: Not Given Miscellaneous (Remove Clonidine Patch) 1 each N/A CQWK@2359 [facility] Stop: 02/17/22 23:58 Last Admin: 01/26/22 00:26 Dose: 1 each Miscellaneous (Check Clonidine Patch Placement) 1 each N/A QS [facility] Stop: 02/18/22 00:00 Last Admin: 01/26/22 08:40 Dose: 1 each Miscellaneous (Fentanyl Patch Remove & Waste) 1 each N/A Q3D@2359 [facility] Stop: 02/22/22 23:58 Last Admin: 01/23/22 23:30 Dose: 1 each Miscellaneous (Check Fentanyl Patch Placement) 1 each N/A QS [facility] Stop: 02/23/22 07:59 Last Admin: 01/26/22 08:40 Dose: 1 each Miscellaneous Information (Pharmacy Glycemic Mgmt Consult) 1 each N/A UD PRN PRN Reason: Consult Stop: 02/09/22 08:21 Nicotine (Nicotine 14 Mg/24 Hr Patch) 14 mg TD QAM [facility] Stop: 02/04/22 15:59 Last Admin: 01/26/22 08:42 Dose: Not Given Olanzapine (Olanzapine 2.5 Mg Tab) 2.5 mg PO HS [facility] Stop: 02/03/22 01:23 Last Admin: 01/25/22 21:19 Dose: 2.5 mg Ondansetron HCl (Ondansetron Inj 2 Mg/Ml 2 Ml Vial) 4 mg IV Q4H PRN PRN Reason: Nausea &/or Vomiting Stop: 02/25/22 09:32 Pantoprazole Sodium (Pantoprazole 40 Mg Tab) 40 mg PO QAM [facility] Stop: 02/03/22 08:59 Last Admin: 01/26/22 08:43 Dose: 40 mg Patiromer (Patiromer Calcium Sorbitex 8.4 Gm Pack) 16.8 gm PO DAILY@1100 [facility] Stop: 02/17/22 10:59 Last Admin: 01/25/22 11:27 Dose: Not Given Senna/Docusate Sodium (Docusate Sodium/Senna 50/8.6mg Tab) 2 tab PO BID [facility] Stop: 02/10/22 08:59 Last Admin: 01/26/22 08:40 Dose: Not Given (1) Chest pain Chest pain type: unspecified Qualified Code(s): R07.9 - Chest pain, unspecified
[2022-01-26] MEDS: PATIROMER CALCIUM SORBITEX 8.4 GM PACK PO SCH (11:12)
--- NOTE | 2022-01-26 13:32 | Palliative Care Progress Note ---
Date of Service January 26, 2022 Assessment & Plan (1) Chronic pain: Plan: Hydromorphone infusion started by Dr. Venron. Will d/c fentanyl patches. Explained to Jeff that fentanyl will take a couple days to clear. Hydromorphone infusion can be adjusted as needed. I also ordered a prn bolus dose for uncontrolled pain. (2) Palliative care encounter: Plan: Jeff continues to worry that his family and friends will think that he's a quitter. Family has assured him that is not the case. He asked what to expect and we talked about likely course with progressive weakness and lethargy until his dying time. He continues to take the opportunity to visit with family and have important discussions. Admission and Anticipated Discharge Date Admission Date: January 04, 2022 Subjective Jeff decided today not to continue dialysis. He continues to have pain. Multi ple family and friends visited yesterday to say goodbye. His parents and sister are in the room. Review of Systems Review of Systems: ESAS Pain 3/3 Dyspnea 0/3 Anxiety 2/3 Drowsiness 1/3 Nausea 0/3 PPS 40% Physical Exam Constitutional: + ill appearing; no acute distress Respiratory: normal respiratory effort; no labored breathing Cardiovascular: Extremities: + edema Neurologic: Speech / Cognition: normal cognition Results & Data ([facility]) Vital Signs (Past 12 Hours) Vital Signs Temp Pulse Resp BP Pulse Ox O2 Del Method O2 Flow Rate 01/26/22 07:48 Nasal Cannula 3 01/26/22 06:35 97.9 F 73 20 132/74 91 Room Air 01/26/22 03:18 97.9 F 71 20 141/76 H 93 Room Air 01/26/22 01:56 Nasal Cannula 3 PG Care Time/CCT Total # of Minutes Spent Total Time Spent: 25 Total Time Spent with Patient: Total time spent is greater than 50% in coordination of care (as documented) at patient's floor/unit and/or counseling patient:symptom management, prognosis, what to expect, patient and family education and support Coding Level of Care Code 36247 Subseq Hosp Care Lvl 2 Diagnoses Chronic pain G89.29 Palliative care encounter Z51.5
[2022-01-26] MEDS: amLODIPine BESYLATE 5 MG TAB PO SCH (20:39)
[2022-01-26] MEDS: OLANZAPINE 2.5 MG TAB PO SCH (20:39)
[2022-01-27] MEDS: HYDROmorphone INJ 0.5 MG/0.5 ML SYR IV PRN ×10 (02:56→22:33)
[2022-01-27] MEDS: CHECK CLONIDINE PATCH PLACEMENT SCH ×3 (07:33→23:31)
[2022-01-27] MEDS: LIDOCAINE 5% 1 PATCH TD SCH (07:33)
[2022-01-27] MEDS: NICOTINE 14 MG/24 HR PATCH TD SCH (07:33)
[2022-01-27] MEDS: METOCLOPRAMIDE HCL 5 MG TABLET PO SCH (07:41)
[2022-01-27] MEDS: carvediloL 6.25 MG TAB PO SCH ×2 (07:42→20:23)
[2022-01-27] MEDS: PANTOprazole 40 MG TAB PO SCH (07:42)
[2022-01-27] MEDS: DOCUSATE SODIUM/SENNA 50/8.6MG TAB PO SCH ×2 (07:43→20:22)
[2022-01-27] MEDS: levETIRAcetam 250 MG TAB PO SCH ×2 (07:44→20:23)
[2022-01-27] MEDS: GABAPENTIN 400 MG CAP PO SCH ×3 (07:44→20:23)
--- NOTE | 2022-01-27 14:30 | Hospitalist Progress Note ---
Date of Service January 27, 2022 Assessment & Plan (1) Chest pain: Plan: (1) Chest pain: Secondary to carcinoma of the lung Chest pain is atypical mostly due to metastatic disease CT chest 01/07/22 showed new bony lesions at T8, left 8th rib as well as T5-6, stable destructive lesion on left 9th rib, interval enlargement of left axillary node and stable Left upper pleural based mass Trop is normal. No ACS on EKG. Echo noted normal LV size with moderate concentric LVH without segmental wall motion abnormalities, EF of 55 to 60%. Continue carvedilol Continue po Dilaudid and fentanyl patch Lidocaine patch added for each shoulder Pain has been increasing Will increase fentanyl patch 100 mcg and will keep Dilaudid as it is Pain has not been controlled with oral Dilaudid Will discontinue Dilaudid and start with morphine IR 15 mg Q6 hourly as needed Pain has not been reasonably controlled We will increase the morphine IR to q. 4 hourly as needed His fentanyl patch will be increased to 125 mcg every 3 days from tonight Pain seems to be reasonably controlled He has been accepted to [facility] and likely to be discharged in a day or 2 if authorization goes through He received the COVID booster as per requirement Pain has been worse as of today and the patient wanted to have more pain medications Appreciate palliative care input and recommendation for morphine/Dilaudid drip to control pain Discussed with the patient in detail and the patient wanted to have morphine drip and no more dialysis His pain is not yet controlled with IV Dilaudid drip That dose of Dilaudid drip will be increased and adjusted accordingly to control pain Acute on chronic anemia Chronic anemia Worsening anemia. No obvious blood loss S/p 1 PRBC with HD on 01/05/22 Hbg is 7.9 today Globin dropped to 6.1 as of 01/22/2022 and received 2 units of blood transfusion No significant blood loss from GI and or respiratory tract Hemoglobin went up to 7.7 following blood transfusion Not doing any more blood test History of COPD Metastatic NSCLC status post surgery, radiation/incomplete chemotherapy secondary to intolerance Patient not a candidate for additional treatment as per recent outpatient Oncology note No acute shortness of breath and or wheezing (2) Primary cancer of left lung metastatic to other site: On 01/08/22, Previous hospitalist spoke with patient's Oncologist, Dr Lion Keith who stated no further treatment/chemo is recommended. Palliative on board Patient is not ready to transition to hospice, stated he has somethings to take care of before that. He understands prognosis is poor. Wants to continue full code for now until he is ready Radiation oncology on board S/P CT simulation for treatment planning to initiate radiation therapy Next radiation therapy schedule for tomorrow Continue dexamethasone-to milligram from 01/17/2022 for 1 week and then 1 mg for next week Palliative made referral to [facility] Palliative who will follow up with patient. Case discussed with Palliative that recommended not to increase the fentanyl patch due to risk of opioid toxicity on ESRD patient Continue Low dose of IV Dialudid 0.5 IV prn q12h while inpatient Will increase fentanyl patch 100 micrograms every 3 days Discussed with the palliative care-she has no other ways to help the patient as long as he is on dialysis and hospice will not cover that He still has 5 treatments of radiation and following that he will need to continue with outpatient dialysis Will finish the radiation treatment soon but will need to continue dialysis Has had radiation today and appreciate palliative care reevaluation today He still wants to be intubated to be seen by his family members and clearly mentioned that he can be extubated following the visit by his family members He has clearly explained and instructed that to his daughter 's condition has gotten worse but is still the patient wants to be intubated in case of cardiac arrest or respiratory arrest He has been put on comfort care from this morning Adequate symptomatic medications will be provided to give him comfortable Appreciate palliative care follow-up note Will increase the doses of pain medicine to control it (3) Hypertensive crisis: Presenting as headache and chest pain symptoms ?Hypertensive emergency Patient reports chronic intermittent generalized body pains for which he is on opioids (confirmed on PDMP) Concern for possible poor med adherence considering recurrent admissions; likely complicated by nausea/vomiting related to gastroparesis Continue lisinopril, clonidine Continue amlodipine and carvedilol started during this visit BP remains at the upper side and 167/93 as of today (4) Wound of left foot: CT foot does not show any osteomyelitis Related to dropfoot brace which was quite tight Ortho eval appreciated Wound care while inpatient Reports he already made 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 If worsening, will consider to get an u/s of LUE Clinically improved significantly (5) Intractable nausea and vomiting: (6) Gastroparesis: History of IBD, gastroparesis status post gastric pacemaker, symptoms better after recent pacemaker adjustment Continue antiemetics prn Hyperkalemia Mostly due to ESRD Potassium 5.9 today Case discussed with nephrology Will be managed with dialysis (7) ESRD (end stage renal disease) on dialysis: Nephrology on board Schedule for HD on // Pt had 2hr HD today Dialysis as per the exercise rider Will need to continue dialysis as an outpatient No more dialysis (8) DM type 1 (diabetes mellitus, type 1): Recent hemoglobin A1c of 9.1 last October 2021 He had an episode of hypoglycemia today Currently on Lantus and novolog sliding scale Pharmacy on board for glycemic management Continue monitor BS closely while on Dexamethasone Blood sugar has been running high and will cover as needed with insulin His blood sugar is running low received intravenous dextrose and the patient is not being able to eat and or drink that much We will start intravenous dextrose and normal saline infusion Did not recheck any more blood sugars Seizure disorder, stable on regimen DVT ppx no heparin subq due to low hgb Prognosis is very poor The family members will be called Remains stable but critical Admission and Anticipated Discharge Date Admission Date: January 04, 2022 Subjective 01/17/2022 The patient was seen and examined in telemetry unit He complains to have pain and cough with black phlegm Associated with minimal shortness of breath but has not been requiring any oxygen At times he screams with the pain with nagging constant pain all the time Remains unsteady on feet 01/18/2022 The patient was seen and examined in telemetry unit His pain seems to be reasonably controlled today Denies any shortness of breath at rest Remains unsteady on feet 01/19/2022 The patient was seen and examined in telemetry unit He has been complaining of pain His medications was recently changed Denies any shortness of breath, any fever and or chills 01/20/2022 The patient was seen and examined in telemetry unit Still complains to have pain and cannot sleep at night His IV pain medications are changed 01/21/2022 The patient was seen and examined in telemetry unit His pain seems to be reasonably controlled with occasional exacerbation Has not had a sleep last night 01/22/2022 The patient was seen and examined in telemetry unit in presence of the friends He has been complaining of more pain and wants to have more pain medications He wants to go ahead with the conditional code and intubation if needed 01/23/2022 The patient was seen and examined in telemetry unit He has been very weak and lethargic and complaining of ongoing pain He still wishes to have intubation if needed 01/24/2022 The patient was seen and examined in telemetry unit He has had minor episode of near syncope this morning but no more episodes of that He could not tolerate radiation therapy today as he could not lie down He has been accepted to a custodial and likely to be going there in a day or 2 01/25/2022 The patient was seen and examined in telemetry unit He has not been doing great today and complains to have extremely weakness and tiredness with moderate shortness of breath at rest Still complains to pain Blood sugar was low and he was started with intravenous dextrose and an normal saline infusion 01/26/2022 Patient was seen and examined in telemetry unit He has been very lethargic and complains to have more pain Denies any increasing shortness of breath He does not want anymore dialysis 01/27/2022 The patient was seen and examined in telemetry unit He has been on comfort care and on Dilaudid drip Still continues to have more pain and moderate shortness of breath at rest Remains very weak and pleasantly confused Review of Systems Review of Systems: All systems reviewed and are unremarkable except as noted below Respiratory: No shortness of breath but has cough and chest pain Physical Exam Physical Exam: Sitting at the edge of the bed with moderate pain Constitutional: well developed, well nourished, + ill appearing and average body habitus Eyes: PERRL, conjunctivae normal, anicteric sclerae ENMT: external ear and nose normal, oropharynx normal Neck: trachea midline, no thyromegaly Respiratory: no respiratory distress Auscultation: + diminished lung sounds and + crackles (Left lung) Cardiovascular: Rate/Rhythm: regular rate and regular rhythm; not tachycardic Heart Sounds: normal S1 and normal S2; no murmur Extremities: + edema (1-2+ edema bilaterally.) Gastrointestinal (Abdomen): Inspection/Auscultation: normal bowel sounds; abdomen not distended Percussion/Palpation: abdomen soft; abdomen nontender Neurologic: normal touch/pain/proprioception; no focal motor deficits (Very weak and lethargic) and not confused Psychiatric: A+Ox3, euthymic affect Lymphatic: no cervical or axillary lymphadenopathy Results & Data Results & Data ([facility]) Vital Signs (Past 12 Hours) Vital Signs O2 Del Method O2 Flow Rate 01/27/22 07:51 Nasal Cannula 3 Medications Administered Current Inpatient Medications Amlodipine Besylate (Amlodipine Besylate 5 Mg Tab) 10 mg PO HS [facility] Stop: 02/03/22 20:59 Last Admin: 01/26/22 20:39 Dose: 10 mg Atropine Sulfate (Atropine Sulfate 1% Op Soln 5 Ml Btl) 4 drops SL Q1H PRN PRN Reason: Secretions or pulm congestion Stop: 02/25/22 09:32 Benzonatate (Benzonatate 100 Mg Capsule) 100 mg PO TID PRN PRN Reason: Cough Stop: 02/16/22 06:19 Carvedilol (Carvedilol 6.25 Mg Tab) 6.25 mg PO BID [facility] Stop: 02/03/22 20:59 Last Admin: 01/27/22 07:42 Dose: 6.25 mg Clonidine HCl (Clonidine Hcl 0.2 Mg/24 Hr Transderm Sys) 1 patch TD Q7D@0000 [facility] Stop: 02/18/22 00:00 Last Admin: 01/26/22 00:28 Dose: 1 patch Gabapentin (Gabapentin 400 Mg Cap) 400 mg PO TID [facility] Stop: 02/13/22 04:39 Last Admin: 01/27/22 12:48 Dose: Not Given Hydromorphone HCl (Hydromorphone Inj 0.5 Mg/0.5 Ml Syr) 0.5 mg IV Q30M PRN PRN Reason: Severe shortness of breath Stop: 02/09/22 12:19 Last Admin: 01/27/22 12:47 Dose: 0.5 mg Hydromorphone HCl (Dilaudid/Nss) 100 mg in 100 mls @ 1.6 mls/hr IV .[id number] [facility]; Protocol Stop: 02/09/22 09:29 Last Titration: 01/27/22 11:31 Dose: 1.6 mg/hr, 1.6 mls/hr Lorazepam 0.5 mg/ Syringe 0.5 mls @ 2 mls/min IV Q4H PRN PRN Reason: Anxiety/Agitation Stop: 02/25/22 09:32 Levetiracetam (Levetiracetam 250 Mg Tab) 750 mg PO BID [facility] Stop: 02/03/22 08:59 Last Admin: 01/27/22 07:44 Dose: 750 mg Lidocaine (Lidocaine 5% 1 Patch) 2 patch TD QAM DAMIR Stop: 02/11/22 10:44 Last Admin: 01/27/22 07:33 Dose: Not Given Lorazepam (Lorazepam 0.5 Mg Tab) 0.5 mg PO HS PRN PRN Reason: Anxiety, sleep Stop: 02/06/22 20:26 Last Admin: 01/20/22 03:47 Dose: 0.5 mg Menthol (Cough Drop (Sugar Free) Marito 24 Marito/1 Box) 1 marito BUCCAL Q2H PRN PRN Reason: Sore Throat Stop: 02/16/22 06:19 Last Admin: 01/22/22 22:53 Dose: 1 marito Metoclopramide HCl (Metoclopramide Hcl 5 Mg Tablet) 5 mg PO DAILY [facility] Stop: 02/03/22 08:59 Last Admin: 01/27/22 07:41 Dose: 5 mg Miscellaneous (Remove Nicoderm Patch) 1 each N/A DAILY@0859 [facility] Stop: 02/05/22 08:58 Last Admin: 01/27/22 07:32 Dose: Not Given Miscellaneous (Remove Lidoderm Patch) 1 each N/A DAILY@2100 [facility] Stop: 02/10/22 04:59 Last Admin: 01/26/22 20:39 Dose: 1 each Miscellaneous (Remove Clonidine Patch) 1 each N/A CQWK@2359 [facility] Stop: 02/17/22 23:58 Last Admin: 01/26/22 00:26 Dose: 1 each Miscellaneous (Check Clonidine Patch Placement) 1 each N/A QS [facility] Stop: 02/18/22 00:00 Last Admin: 01/27/22 07:33 Dose: 1 each Nicotine (Nicotine 14 Mg/24 Hr Patch) 14 mg TD QAM DAMIR Stop: 02/04/22 15:59 Last Admin: 01/27/22 07:33 Dose: Not Given Olanzapine (Olanzapine 2.5 Mg Tab) 2.5 mg PO HS [facility] Stop: 02/03/22 01:23 Last Admin: 01/26/22 20:39 Dose: 2.5 mg Ondansetron HCl (Ondansetron Inj 2 Mg/Ml 2 Ml Vial) 4 mg IV Q4H PRN PRN Reason: Nausea &/or Vomiting Stop: 02/25/22 09:32 Pantoprazole Sodium (Pantoprazole 40 Mg Tab) 40 mg PO QAM [facility] Stop: 02/03/22 08:59 Last Admin: 01/27/22 07:42 Dose: 40 mg Senna/Docusate Sodium (Docusate Sodium/Senna 50/8.6mg Tab) 2 tab PO BID [facility] Stop: 02/10/22 08:59 Last Admin: 01/27/22 07:43 Dose: 2 tab (1) Chest pain Chest pain type: unspecified Qualified Code(s): R07.9 - Chest pain, unspecified
[2022-01-27] MEDS: amLODIPine BESYLATE 5 MG TAB PO SCH (20:23)
[2022-01-27] MEDS: OLANZAPINE 2.5 MG TAB PO SCH (20:24)
[2022-01-27] MEDS: ONDANSETRON INJ 2 MG/ML 2 ML VIAL IV PRN (22:33)
[2022-01-28] MEDS: ONDANSETRON INJ 2 MG/ML 2 ML VIAL IV PRN (04:51)
--- NOTE | 2022-01-28 05:09 | Death Pronouncement Note ---
Date of Service January 28, 2022 Pronouncement Note Admission Date January 04, 2022 Date and Time of Date of : 01/28/22 Time of : 05:20 Additional Data Confirmation of : no pulse, no respirations, no heart sounds and pupils fixed and dilated Attending/PCP notified?: Yes Attending physician: Stephon Vernon MD
--- NOTE | 2022-01-28 05:16 | Discharge Summary ---
Date of Service January 28, 2022 Admission HPI Per Admitting Provider History obtained from patient and records. Medical history significant for COPD, pulmonary hypertension, metastatic NSCLC status post surgery, radiation/incomplete chemotherapy secondary to intolerance, IBD, gastroparesis status post gastric pacemaker, chronic pain on narcotics, HTN, DM1, DM neuropathy, ESRD, chronic anemia (baseline hemoglobin 8), seizure disorder as per records, hx neurogenic bladder as per records, past tobacco abuse Monthly [facility] admissions since June,. Last confinement 2 weeks ago for intractable nausea vomiting and hypertensive urgency secondary to gastroparesis. Patient was in [place] last week to have gastric pacemaker reprogrammed. [facility] ER visit 4 days ago for nausea, vomiting symptoms. Patient subsequently discharged. Patient usual dialysis schedule Saturday. Extra dialysis session yesterday after patient sent by locker room manager for a CAT scan IV contrast study of the chest last Saturday for breathing concerns. Outpatient CT chest done on [facility] possibly showing pneumonia although patient denies current cough complaints. Today patient had chest pain radiating to the left arm and some shortness of breath associated with a headache symptoms. He gets the symptoms when his blood pressure is not controlled as per patient. Highest SBP at the ER 230s. Minimal relief with nitroglycerin administered at the ER. Patient compliant with home medications. Gastroparesis symptoms controlled as per patient. Denies unusual abdominal pain, black bloody stools. Necrotic left foot wound/swelling without unusual pain noted by INFORMATION SECURITY DIRECTOR upon patient arrival to the floor and removal of patient's special boot for foot drop. Weak pedal pulses on left foot as per RN. Patient not sure how long he has had left foot wound. No fever, no chills. Medical History as above Surgical History : Knee surgery, thorascopy, lymphadenectomy, lung lobectomy, tonsillectomy/adenoidectomy Family History : Lung cancer, diabetes, renal cell carcinoma Personal/Social history : Past tobacco abuse, no EtOH intake, disabled Principal Diagnosis Metastatic lung cancer Discharge Data Allergies Allergy/AdvReac Type Severity Reaction Status Date / Time bee venom protein (honey bee) Allergy Severe Swelling Verified 12/28/21 15:03 at site, SOB cat dander Allergy Unknown Unknown Verified 12/28/21 15:03 Penicillins Allergy Unknown Amoxicillin- Verified 12/28/21 15:03 "since " Consultations 01/03/22 20:25 ED Decision to Admit Stat 01/04/22 01:24 Consult Nephrology Routine 01/04/22 04:58 Consult Orthopedic Surgery Routine 01/05/22 15:59 Consult Palliative Care Routine 01/08/22 08:33 Consult Radiation Oncology Routine 01/12/22 22:44 Consult Vascular Surgery Routine 01/18/22 16:49 Consult Palliative Care Routine 01/26/22 09:33 Consult Palliative Care Routine Procedures Performed Operation Date: 01/09/22 08:00 Actual Procedures p Left Antecubital Basilic Vein Arteriovenous Fistula Creation, Repair Central Venous Device(Left) - Joon Mattson MD Ordered Studies 01/03/22 21:58 CT head/brain wo con Urgent 01/04/22 US ankle/brachial index ltd Routine 01/04/22 01:37 CT foot LT wo con Urgent 01/04/22 05:11 US arterial duplex LE LT Urgent 01/07/22 11:03 CT chest diagnostic wo con Urgent 01/10/22 07:58 CT guide rad therapy chest Routine Hospital Course (1) Lung cancer: Lung cancer: Plan Chest pain: Plan: (1) Chest pain: Secondary to carcinoma of the lung Chest pain is atypical mostly due to metastatic disease CT chest 01/07/22 showed new bony lesions at T8, left 8th rib as well as T5-6, stable destructive lesion on left 9th rib, interval enlargement of left axillary node and stable Left upper pleural based mass Trop is normal. No ACS on EKG. Echo noted normal LV size with moderate concentric LVH without segmental wall motion abnormalities, EF of 55 to 60%. Continue carvedilol Continue po Dilaudid and fentanyl patch Lidocaine patch added for each shoulder Pain has been increasing Will increase fentanyl patch 100 mcg and will keep Dilaudid as it is Pain has not been controlled with oral Dilaudid Will discontinue Dilaudid and start with morphine IR 15 mg Q6 hourly as needed Pain has not been reasonably controlled We will increase the morphine IR to q. 4 hourly as needed His fentanyl patch will be increased to 125 mcg every 3 days from tonight Pain seems to be reasonably controlled He has been accepted to [facility] and likely to be discharged in a day or 2 if authorization goes through He received the COVID booster as per requirement Pain has been worse as of today and the patient wanted to have more pain medications Appreciate palliative care input and recommendation for morphine/Dilaudid drip to control pain Discussed with the patient in detail and the patient wanted to have morphine drip and no more dialysis His pain is not yet controlled with IV Dilaudid drip That dose of Dilaudid drip will be increased and adjusted accordingly to control pain Acute on chronic anemia Chronic anemia Worsening anemia. No obvious blood loss S/p 1 PRBC with HD on 01/05/22 Hbg is 7.9 today Globin dropped to 6.1 as of 01/22/2022 and received 2 units of blood transfusion No significant blood loss from GI and or respiratory tract Hemoglobin went up to 7.7 following blood transfusion Not doing any more blood test History of COPD Metastatic NSCLC status post surgery, radiation/incomplete chemotherapy secondary to intolerance Patient not a candidate for additional treatment as per recent outpatient Oncology note No acute shortness of breath and or wheezing (2) Primary cancer of left lung metastatic to other site: On 01/08/22, Previous hospitalist spoke with patient's Oncologist, Dr Lion Keith who stated no further treatment/chemo is recommended. Palliative on board Patient is not ready to transition to hospice, stated he has somethings to take care of before that. He understands prognosis is poor. Wants to continue full code for now until he is ready Radiation oncology on board S/P CT simulation for treatment planning to initiate radiation therapy Next radiation therapy schedule for tomorrow Continue dexamethasone-to milligram from 01/17/2022 for 1 week and then 1 mg for next week Palliative made referral to [facility] Palliative who will follow up with patient. Case discussed with Palliative that recommended not to increase the fentanyl patch due to risk of opioid toxicity on ESRD patient Continue Low dose of IV Dialudid 0.5 IV prn q12h while inpatient Will increase fentanyl patch 100 micrograms every 3 days Discussed with the palliative care-she has no other ways to help the patient as long as he is on dialysis and hospice will not cover that He still has 5 treatments of radiation and following that he will need to continue with outpatient dialysis Will finish the radiation treatment soon but will need to continue dialysis Has had radiation today and appreciate palliative care reevaluation today He still wants to be intubated to be seen by his family members and clearly mentioned that he can be extubated following the visit by his family members He has clearly explained and instructed that to his daughter 's condition has gotten worse but is still the patient wants to be intubated in case of cardiac arrest or respiratory arrest He has been put on comfort care from this morning Adequate symptomatic medications will be provided to give him comfortable Appreciate palliative care follow-up note Will increase the doses of pain medicine to control it (3) Hypertensive crisis: Presenting as headache and chest pain symptoms ?Hypertensive emergency Patient reports chronic intermittent generalized body pains for which he is on opioids (confirmed on PDMP) Concern for possible poor med adherence considering recurrent admissions; likely complicated by nausea/vomiting related to gastroparesis Continue lisinopril, clonidine Continue amlodipine and carvedilol started during this visit BP remains at the upper side and 167/93 as of today (4) Wound of left foot: CT foot does not show any osteomyelitis Related to dropfoot brace which was quite tight Ortho eval appreciated Wound care while inpatient Reports he already made appt with a logistics planner LUE swelling and ecchymosis Pt said that swelling and ecchymosis improved. If worsening, will consider to get an u/s of LUE Clinically improved significantly (5) Intractable nausea and vomiting: (6) Gastroparesis: History of IBD, gastroparesis status post gastric pacemaker, symptoms better after recent pacemaker adjustment Continue antiemetics prn Hyperkalemia Mostly due to ESRD Potassium 5.9 today Case discussed with nephrology Will be managed with dialysis (7) ESRD (end stage renal disease) on dialysis: Nephrology on board Schedule for HD on // Pt had 2hr HD today Dialysis as per the locker room manager Will need to continue dialysis as an outpatient No more dialysis (8) DM type 1 (diabetes mellitus, type 1): Recent hemoglobin A1c of 9.1 last October 2021 He had an episode of hypoglycemia today Currently on Lantus and novolog sliding scale Pharmacy on board for glycemic management Continue monitor BS closely while on Dexamethasone Blood sugar has been running high and will cover as needed with insulin His blood sugar is running low received intravenous dextrose and the patient is not being able to eat and or drink that much We will start intravenous dextrose and normal saline infusion Did not recheck any more blood sugars Seizure disorder, stable on regimen DVT ppx no heparin subq due to low hgb Prognosis is very poor The family members will be called (Preceding documentation as per daytime provider.) 01/26/2022 Patient noted to be lethargic and complaining of more pain Patient refused further dialysis. Patient transitioned to comfort measures. Dilaudid drip initiated. 01/28/2022 Notified by RN of probable . Patient pronounced at 5:20 AM. Primary cause of is metastatic lung cancer. Total time to prepare this discharge summary was less than 10 minutes. Total Time Total Time Spent Total Time Spent (In Minutes): 10 mins Discharge Plan Discharge Items Patient Disposition: Discharge Diagnosis: Metastatic lung cancer Addtl Attending Provider Instructions: N/A Other Date/Time: 01/28/22 05:20
== END 2022-01-28 14:10 | disposition expired | DRG 981 ==
LOC: 2E 16:09 → ED 16:09 → SUATTDRO 23:11 → 2E 01-04 00:43 → SUATTDRO 01-04 06:59